=== PATIENT | male | born 1980 | race Caucasian/White ===

== ENCOUNTER 2023-11-04 20:35 | Emergency (ER) | payer OTHER, SELFPAY ==
[2023-11-04 20:45] VITALS: BP 123/76; PULSE 110; RESP 12; TEMP 39.4; O2SAT 97; BMI 24.4
[2023-11-04 20:56] LABS: Adenovirus NOT DETECTED (NOT DETECTE); Bordetella parapertussis NOT DETECTED (NOT DETECTE); Coronavirus 229E NOT DETECTED (NOT DETECTE); Coronavirus HKU1 NOT DETECTED (NOT DETECTE); Coronavirus NL63 NOT DETECTED (NOT DETECTE); Coronavirus OC43 NOT DETECTED (NOT DETECTE); Human Metapneumovirus NOT DETECTED (NOT DETECTE); Human Rhinovirus/Enterovirus NOT DETECTED (NOT DETECTE); Influenza A NOT DETECTED (NOT DETECTE); Mycoplasma pneumoniae NOT DETECTED (NOT DETECTE); Parainfluenza Virus 1 NOT DETECTED (NOT DETECTE); Parainfluenza Virus 2 NOT DETECTED (NOT DETECTE); Parainfluenza Virus 3 NOT DETECTED (NOT DETECTE); Parainfluenza Virus 4 NOT DETECTED (NOT DETECTE); Respiratory Syncytial Virus NOT DETECTED (NOT DETECTE); SARS-CoV-2 NOT DETECTED (NOT DETECTE)
[2023-11-04 21:10] VITALS: TEMP 39.4
[2023-11-04] MEDS: IBUPROFEN 400 MG TABLET 800 MG PO (21:10)
[2023-11-04 21:13] LABS: Internal Control Within Normal Limits; Strep A Antigen Screen Negative
--- NOTE | 2023-11-04 21:14 | XR_ITS ---
The [address] [address] Patient Name: RUTH ANSARI MRN: [id number] date: 1980 Sex: M Assigned Patient Location: ER Current Patient Location: ER Accession/Order Number: [id number] Exam Date: 11/04/2023 21:25 Report Date: 11/04/2023 21:49 At the request of: NEGRITO ARREDONDO Procedure: XR chest 1V EXAMINATION: XR chest 1V HISTORY: Sore throat, fever and cough COMPARISON: Portable chest 12/12/2021 TECHNIQUE: Portable chest FINDINGS: The lung parenchyma is free of consolidation or infiltrate. No pneumothorax or pleural effusion. The cardiac, mediastinal and hilar contours are normal. The visualized osseous structures exhibit no gross abnormality. XR/XR chest 1V IMPRESSION: No acute cardiopulmonary abnormality. Electronically authenticated by: JOELLE WILD Date: 11/04/2023 21:49
--- NOTE | 2023-11-04 21:14 | ED_ITS ---
HPI - Fever General Chief Complaint: Fever Stated Complaint: FEVER COUGH Time Seen by Provider: 11/04/23 21:08 Source: patient Mode of arrival: walk-in Limitations: no limitations History of Present Illness HPI Narrative: history of fentanyl abuse. Currently at a recovery center and states several people there are ill. He left today to come her and visit his mother . He now feels ill. Fever, sore throat, body aches and productive cough. Not short of breath. no abdominal pain or nausea vomiting MD elicited complaint: Reports fever and malaise Related Data Allergies Allergy/AdvReac Type Severity Reaction Status Date / Time Penicillins Allergy Unknown Verified 11/04/23 20:43 vancomycin Allergy Redness of Verified 11/04/23 20:43 Skin Review of Systems ROS Status of ROS 10 or more systems reviewed and unremark able except as noted in history and below [facility] Social History Smoking status: Current every day smoker Exam Constitutional Vital Signs, click to edit/add: Last Vital Signs Temp 100.9 F H 11/04/23 22:07 Pulse 101 H 11/04/23 22:07 Resp 18 11/04/23 22:07 BP 106/66 11/04/23 22:07 Pulse Ox 95 11/04/23 22:07 O2 Del Method Room Air 11/04/23 22:07 Common normals: no apparent distress, average body habitus, oriented x3, no limitations, healthy appearing, alert and well nourished [facility] Common normals: normocephalic and head/scalp atraumatic Other: oral pharynx clear Eye Common normals: EOMs intact bilaterally and conjunctivae normal Respiratory Common normals: normal respiratory effort, no retractions and no use of accessory muscles Cardio Common normals: regular rate, regular rhythm, S1 normal heart sound and S2 normal heart sound GI Common normals: Normal to inspection, nondistended, normoactive bowel sounds present, soft to palpation and non-tender Extremity Common normals: normal to inspection and full ROM Neuro Common normals: oriented x3, CN's II-XII intact bilaterally, moves all extremities and no focal motor deficits Psych Appearance: grossly normal Course Vital Signs Vital signs: Vital Signs Temperature 102.9 F H 11/04/23 20:45 Pulse Rate 110 H 11/04/23 20:45 Respiratory Rate 12 11/04/23 20:45 Blood Pressure 123/76 11/04/23 20:45 Pulse Oximetry 97 11/04/23 20:45 Oxygen Delivery Method Room Air 11/04/23 20:45 Temperature 100.9 F H 11/04/23 22:07 Pulse Rate 101 H 11/04/23 22:07 Respiratory Rate 18 11/04/23 22:07 Blood Pressure 106/66 11/04/23 22:07 Pulse Oximetry 95 11/04/23 22:07 Oxygen Delivery Method Room Air 11/04/23 22:07 MDM - Fever MDM Narrative Medical decision making narrative: patient exposed to virus illness at recovery center. Presents with sorethroat, productive cough, body aches and sore throat. Throat exam is normal and chest is clear. cxray normal. swab positive for influenza. Patient clinically stable and discharged home Lab Data Labs: Lab Results 11/04/23 Range/Units 20:50 Adenovirus (PCR) Not detected (NOT DETECTE) C. pneumoniae DNA (PCR) Not detected (NOT DETECTE) Coronavirus Type OC43 Not detected (NOT DETECTE) Coronavirus Type HKU1 Not detected (NOT DETECTE) Coronavirus Type 229E Not detected (NOT DETECTE) Coronavirus Type NL63 Not detected (NOT DETECTE) Human Metapneumovir PCR Not detected (NOT DETECTE) M. pneumoniae (PCR) Not detected (NOT DETECTE) Parainfluenza PCR Not detected (NOT DETECTE) Parainfluenza 2 (PCR) Not detected (NOT DETECTE) Parainfluenza 3 (PCR) Not detected (NOT DETECTE) Parainfluenza 4 (PCR) Not detected (NOT DETECTE) RSV (RT-PCR) Not detected (NOT DETECTE) Entero/Rhino (PCR) Not detected (NOT DETECTE) SARS-CoV-2 (PCR) Not detected (NOT DETECTE) Streptococcus Screen Negative Bordetella pertussis (PCR) Not detected (NOT DETECTE) B parapertussis DNA PCR Not detected (NOT DETECTE) Influenza Type A (PCR) Not detected (NOT DETECTE) Influenza Type B (PCR) Detected A (NOT DETECTE) Discharge Plan Discharge Chief Complaint: Fever Clinical Impression: Influenza Patient Disposition: Home, Self-Care Instructions: Influenza (ED) Stand Alone Forms: Portal Instructions Referrals: Physician,Non-Staff, MD [Primary Care Provider] - 1 week
[2023-11-04 21:51] LABS: Influenza B DETECTED (NOT DETECTE)
[2023-11-04 22:07] VITALS: BP 106/66; PULSE 101; RESP 18; TEMP 38.3; O2SAT 95
== END 2023-11-04 22:50 | disposition home or self-care (01) ==
PROVIDERS: Emergency Provider Internal Medicine
DX: J10.1 Influenza due to other identified influenza virus with other respiratory manifestations (principal); F19.21 Other psychoactive substance dependence, in remission; F17.200 Nicotine dependence, unspecified, uncomplicated; R50.9 Fever, unspecified
CPT/HCPCS: 0202U; 71045; 87070; 87804; 87811; 87880; 99284

== ENCOUNTER 2025-05-06 20:55 | Emergency (ER) | payer OTHER, SELFPAY ==
[2025-05-06] VITALS (14 sets, daily range): BP systolic 112–139; BP diastolic 75–91; PULSE 69–99; TEMP 36.7–37.2; O2SAT 99–100; BMI 23.3
--- NOTE | 2025-05-06 21:02 | ECG_ITS ---
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 Measurements Intervals [place] Rate: 92 P: 74 GA: 164 QRS: 66 QRSD: 94 T: 60 QT: 348 QTc: 398 Interpretive Statements 1100 Sinus rhythm 2420 RSR (QR) in lead V1/V2, consistent with right ventricular conduction delay 9130 borderline ECG Compared to ECG 12/11/2021 14:40:47 Sinus tachycardia no longer present Electronically Signed On 05-08-2025 11:56:39 EDT by CINDA HAN M.D.
--- OUTSIDE RECORDS SUMMARY | 2025-05-06 21:04 | XMS_ITS | CCD ---
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 Name Role Phone Unavailable Primary Care Provider Emily REBOLLEDO, DR EMY Plata Attending Unavailable REYNOLD, DR MIKY Hernández Consulting Unavailable AMAURY, DR EMY Plata Admitting Unavailable REQUEST, DR ESPINOZA LISTED Primary Care Unavaila ricky REBOLLEDO, DR EMY Plata Procedure Practitioner Mary MEDEIROS, DR JOELLE Lawton Consulting Unavailable AMAURY, DR EMY Plata Consulting Unavailable AHSHERRIE, SAMUEL Consulting Unavailable CELESTE, JOSE RAFAEL Consulting Unavailable JOSÉ LUIS, ETHAN Consulting Unavailable Unavailable Primary Care Provider UnavailMALLIKA Hadley Attending Unavailable DEAALYHSA, NATO Nguyen Attending Unavailable HUSAM SMITH Attending Unavailable JESSICA BARROW Attending Unavailable FABRICIO STORM Referring Unavailable FABRICIO STORM Referring Unavailable EDWARD PALMER Attending Unavailable OZZY, JOSE RAFAEL Referring Unavailable OZZY, JOSE RAFAEL Attending Unavailable ELI DUGAN Attending Unavailable Unavailable Primary Care Provider UnavailFABRICIO Armstrong Attending STU Guevara Attending Unavailable Allergies Allergy Classification Reported Allergen(s) Allergy Type Date of Onset Reaction(s) Facility Penicillins (antibiotic) (1 source) Penicillins Drug Allergy 6 Anaphylaxis [facility] (17 sources) Penicillins; Translations: [PENICILLINS] Propensity to adverse reactions to drug 6 Anaphylaxis [facility]- [place], [place] (1 source) Penicillin Drug Allergy 2 [facility] (12 sources) Vancomycin; Translations: [VANCOMYCIN] Drug Allergy 2 Other (See Comments) [employer] Work Phone (unformatted): [phone] (1 source) Penicillins Propensity to adverse reactions to drug 6 Anaphylaxis [facility] Phone: Medications Current Medications Medication Drug Class(es) Dates Sig (Normalized) Sig (Original) acetaminophen 500 mg oral tablet (7 sources) Start: 09-28-2022 take 1 tablet by mouth every four hours as needed for pain acetaminophen (TYLENOL) 500 MG tablet Take 1 tablet by mouth every 4 hours as needed for Pain or Fever 20 tablet 0 09/28/2022 Active Start: 06-16-2022 acetaminophen (TYLENOL) tablet 650 mg Start: 05-06-2022 acetaminophen (TYLENOL) tablet 650 mg Start: 01-20-2022 acetaminophen (TYLENOL) tablet 650 mg Start: 01-20-2022 End: 01-20-2022 acetaminophen (TYLENOL) tabl et 650 mg Start: 01-20-2022 End: 01-20-2022 acetaminophen (TYLENOL) tabl et 650 mg Start: 12-13-2021 acetaminophen (TYLENOL) tablet 650 mg albuterol 0.83 mg/ml inhalation solution (6 sources) beta2-Adrenergic Agonist Start: 06-19-2022 albut jonathan (PROVENTIL) nebulizer solution 2.5 mg Start: 01-28-2022 albuterol sulf ate HFA 108 (90 Base) MCG/ACT inhaler 2 puff Start: 12-14-2021 albuterol (PRO VENTIL) nebulizer solution 2.5 mg Start: 03-16-2016 take 2 puff(s) by in halation every six hours as needed for wheezing albuterol sulfate HFA (PROVENTIL HFA) 108 (90 BASE) MCG/ACT inhaler Inhale 2 puffs into the lungs every 6 hours as needed for Wheezing or Shortness of Breath (Rinse mouth with water after every use) 1 Inhaler 0 03/16/2016 Active Start: 03-16-2016 End: 12-20-2021 take 2 puff(s) by inhalation every six hours as needed for wheezing albuterol sulfate HFA (PROVENTIL HFA) 108 (90 BASE) MCG/ACT inhaler Inhale 2 puffs into the lungs every 6 hours as needed for Wheezing or Shortness of Breath (Rinse mouth with water after every use) 1 Inhaler 0 03/16/2016 12/20/2021 Discontinued (Stop Taking at Discharge) aluminum hydroxide 40 mg/ml / magnesium hydroxide 40 mg/ml / simethicone 4 mg/ml oral suspension (1 source) Start: 01-29-2022 aluminum & magnesium hydroxide-simethicone (MAALOX) 200-200-20 MG/5ML suspension 30 mL benzocaine 200 mg/ml medicated pad (1 source) Standardized Chemical Allergen Start: 10-18-2023 take 5 doses by mouth three times daily as needed for pain benzocaine (LOLLICAINE) 20 % SWAB dental swab Take by mouth 3 times daily as needed for Pain 5 each 0 10/18/2023 Active benzonatate 100 mg oral capsule (2 sources) Non-narcotic Antitussive Start: 09-28-2022 take 1-2 capsules by mouth three times daily as needed for cough benzonatate (TESSALON) 100 MG capsule Take 1-2 capsules by mouth 3 times daily as needed for Cough 30 capsule 0 01/30/2024 Active bisacodyl 5 mg delayed release oral tablet (1 source) Stimulant Laxative Start: 12-13-2021 bisacodyl (DULCOLAX) EC tablet 5 mg 1.5 ml buprenorphine 200 mg/ml prefilled syringe (1 source) Partial Opioid Agonist buprenorphine er (SUBLOCADE) 300 MG/1.5ML SOSY injection Inject 1.5 mLs into the skin every 30 days. Max Daily Amount: 300 mg 0 Active buprenorphine 8 mg / naloxone 2 mg sublingual film (1 source) Partial Opioid Agonist, Opioid Antagonist Start: 06-28-2022 buprenorphine-naloxone (SUBOXONE) 8-2 MG FILM SL film caspofungin (CANCIDAS) 150 mg in sodium chloride 0.9 % 250 mL IVPB (1 source) Start: 01-25-2022 caspofungin (CANCIDAS) 150 mg in sodium chloride 0.9 % 250 mL IVPB dalbavancin 500 mg injection (5 sources) Lipoglycopeptide Antibacterial Start: 06-19-2022 dalbavancin (DALVANCE) 500 MG SOLR injection Infuse 1,000 mg intravenously every 7 days No iv to be left in arm pls - 2 each 0 06/19/2022 Active Start: 12-20-2021 End: 12-28-2021 dalbavancin (DALVANCE) 500 M G SOLR injection Infuse 1,500 mg intravenously every 7 days for 2 doses 2 each 0 12/20/2021 12/28/2021 Active fluconazole 100 mg oral tablet (12 sources) Azole Antifungal Start: 06-19-2022 End: 07-31-2022 take 4 tablets by mouth every week in the morning fluconazole (DIFLUCAN) 100 MG tablet Take 4 tablets by mouth in the morning. Pls make sure you get the weekly blood for Liver function tests while on this medication. 168 tablet 0 06/19/2022 07/31/2022 Active Start: 06-18-2022 fluconazole (D IFLUCAN) tablet 400 mg Start: 06-15-2022 End: 06-18-2022 fluconazole (DIFLUCAN) 400 m g IVPB Start: 01-30-2022 End: 03-10-2022 take 4 tablets by mouth once daily fluconazole (DIFLUCAN) 100 MG tablet Take 4 tablets by mouth daily Till 03/10/22 Get lFT 2 x per week You ll need repeat echo before the cessation of this medication 156 tablet 0 01/30/2022 03/10/2022 Active Start: 01-23-2022 End: 01-25-2022 fluconazole (DIFLUCAN) 400 m g IVPB Start: 01-23-2022 End: 01-23-2022 fluconazole (DIFLUCAN) 800 m g IVPB End: 06-19-2022 take 2 tablets by mouth in the morning fluconazole (DIFLUCAN) 200 MG tablet Take 400 mg by mouth in the morning. 0 06/19/2022 Discontinued (Stop Taking at Discharge) fluticasone propionate 0.05 mg/actuat metered dose nasal spray (6 sources) Corticosteroid Start: 01-30-2022 End: 05-08-2022 take 1 spray(s) nasal route once daily fluticasone (FLONASE) 50 MCG/ACT nasal spray 1 spray by Each Nostril route daily 16 g 3 01/30/2022 05/08/2022 Discontinued (Stop Taking at Discharge) Start: 01-30-2022 fluticasone (F LONASE) 50 MCG/ACT nasal spray 1 spray glucagon (rdna) 1 mg injection (1 source) Antihypoglycemic Agent Start: 01-21-2022 glucago n (rDNA) injection 1 mg 150 ml glucose 50 mg/ml injection (3 sources) Start: 01-21-2022 glucose (GLUTO SE) 40 % oral gel 15 g Start: 01-21-2022 dextrose 50 % IV solution Start: 01-21-2022 dextrose 5 % s olution 12 hr guaiFENesin 600 mg extended release oral tablet (2 sources) Start: 01-30-2022 End: 02-13-2022 take 1 tablet by mouth twice daily guaiFENesin (MUCINEX) 600 MG extended release tablet Take 1 tablet by mouth 2 times daily for 14 days 28 tablet 0 01/30/2022 02/13/2022 Active hydrOXYzine hydrochloride 25 mg oral tablet (4 sources) Antihistamine Start: 01-20-2022 End: 01-20-2022 take 25 mg by mouth three times daily as needed 25 mg, Oral, 3 TIMES DAILY PRN, Itching, Starting on 01/20/22 at 2236 ibuprofen 800 mg oral tablet (2 sources) Nonsteroidal Anti-inflammatory Drug Start: 01-30-2024 take 1 tablet by mouth every eight hours as needed for pain ibuprofen (ADVIL;MOTRIN) 800 MG tablet Take 1 tablet by mouth every 8 hours as needed for Pain or Fever 15 tablet 0 01/30/2024 Active Start: 10-18-2023 take 1 tablet by flaca th three times daily as needed for pain ibuprofen (ADVIL;MOTRIN) 600 MG tablet Take 1 tablet by mouth 3 times daily as needed for Pain 40 tablet 0 10/18/2023 Active 1 ml ketorolac tromethamine 15 mg/ml cartridge (2 sources) Nonsteroidal Anti-inflammatory Drug, Cyclooxygenase Inhibitor Start: 01-27-2022 End: 02-01-2022 ketorolac (TORADOL) injection 30 mg Start: 12-13-2021 End: 12-18-2021 ketorolac (TORADOL) injectio n 30 mg levoFLOXacin 500 mg oral tablet (4 sources) Quinolone Antimicrobial Start: 01-30-2022 End: 03-10-2022 take 1 tablet by mouth once daily levoFLOXacin (LEVAQUIN) 500 MG tablet Take 1 tablet by mouth daily 39 tablet 0 01/30/2022 03/10/2022 Active LORazepam 1 mg oral tablet (4 sources) Benzodiazepine Start: 05-06-2022 LORazepam (ATIVAN) tablet 1 mg Start: 01-21-2022 End: 01-21-2022 LORazepam (ATIVAN) injection 0.5 mg Start: 12-20-2021 LORazepam (ATI VAN) tablet 0.5 mg Start: 12-16-2021 End: 12-16-2021 LORazepam (ATIVAN) injection 1 mg magnesium hydroxide 80 mg/ml oral suspension (1 source) Start: 01-28-2022 magnesium hydr oxide (MILK OF MAGNESIA) 400 MG/5ML suspension 30 mL melatonin 3 mg oral tablet (2 sources) Start: 01-21-2022 melatonin tabl et 3 mg Start: 12-14-2021 End: 12-18-2021 melatonin tablet 5 mg Nutritional Supplements (BOOST/FIBER PO) (13 sources) Nutritional Supp lements (BOOST/FIBER PO) Take by mouth 0 Active ondansetron (ZOFRAN-ODT) disintegrating tablet 4 mg (3 sources) Start: 05-06-2022 ondansetron (Z OFRAN-ODT) disintegrating tablet 4 mg Start: 01-20-2022 ondansetron (Z OFRAN-ODT) disintegrating tablet 4 mg Start: 12-13-2021 ondansetron (Z OFRAN-ODT) disintegrating tablet 4 mg Potassium Chloride (3 sources) Start: 05-06-2022 potassium chlo ride (KLOR-CON M) extended release tablet 40 mEq Start: 01-20-2022 potassium chlo ride (KLOR-CON M) extended release tablet 40 mEq Start: 12-13-2021 potassium chlo ride (KLOR-CON M) extended release tablet 40 mEq 1 ml promethazine hydrochloride 25 mg/ml injection (1 source) Phenothiazine Start: 05-07-2022 promethazine (PHENERGAN) injection 12.5 mg tigecycline (TYGACIL) 100 mg in sodium chloride 0.9 % 100 mL IVPB (1 source) Start: 05-06-2022 tigecycline (T YGACIL) 100 mg in sodium chloride 0.9 % 100 mL IVPB traZODone hydrochloride 50 mg oral tablet (4 sources) Serotonin Reuptake Inhibitor Start: 01-21-2022 End: 01-21-2022 traZODone (DESYREL) tablet 50 mg End: 05-29-2021 take 1 tablet by mouth once daily traZODone (DESYREL) 50 MG tablet Take 50 mg by mouth nightly 0 05/29/2021 Discontinued (LIST CLEANUP) vancomycin (VANCOCIN) 1250 m g in dextrose 5 % 250 mL IVPB (2 sources) Start: 12-21-2021 vancomycin (VA NCOCIN) 1250 mg in dextrose 5 % 250 mL IVPB Start: 12-18-2021 End: 12-20-2021 vancomycin (VANCOCIN) 1250 m g in dextrose 5 % 250 mL IVPB vancomycin (VANCOCIN) 1250 m g in sodium chloride 0.9% 250 mL IVPB (3 sources) Start: 06-18-2022 vancomycin (VA NCOCIN) 1250 mg in sodium chloride 0.9% 250 mL IVPB Start: 06-15-2022 End: 06-15-2022 vancomycin (VANCOCIN) 1250 m g in sodium chloride 0.9% 250 mL IVPB Start: 01-21-2022 End: 01-22-2022 vancomycin (VANCOCIN) 1250 m g in sodium chloride 0.9% 250 mL IVPB vancomycin (VANCOCIN) intermittent dosing (placeholder) (2 sources) Start: 06-18-2022 vancomycin (VA NCOCIN) intermittent dosing (placeholder) Start: 12-14-2021 vancomycin (VA NCOCIN) intermittent dosing (placeholder) zolpidem tartrate 5 mg oral tablet (1 source) gamma-Aminobutyric Acid-ergic Agonist Start: 12-18-2021 zolpidem (AMBIEN) tablet 5 mg Completed/Discontinued Medications Medication Drug Class(es) Dates Sig (Normalized) Sig (Original) ALPRAZolam 0.25 mg oral tablet (1 source) Benzodiazepine Start: 12-16-2021 End: 12-20-2021 ALPRAZolam (XANAX) tablet 0.25 mg amphotericin B liposome (AMBISOME) 366 mg in dextrose 5 % 158.5 mL IVPB (1 source) Start: 01-24-2022 End: 01-27-2022 amphotericin B liposome (AMBISOME) 366 mg in dextrose 5 % 158.5 mL IVPB aspirin 81 mg chewable tablet (1 source) Platelet Aggregation Inhibitor, Nonsteroidal Anti-inflammatory Drug Start: 12-16-2020 End: 12-16-2020 aspirin chewable tablet 324 mg Start: 12-16-2020 End: 12-16-2020 aspirin chewable tablet 324 mg azithromycin 250 mg oral tablet (1 source) Macrolide Antimicrobial Start: 12-16-2020 End: 12-16-2020 azithromycin (ZITHROMAX) tablet 500 mg aztreonam (AZACTAM) 1000 mg IVPB minibag (1 source) Start: 12-14-2021 End: 12-15-2021 aztreonam (AZACTAM) 1000 mg IVPB minibag cefepime (MAXIPIME) 2,000 mg in sterile water 20 mL IV syringe (1 source) Start: 06-15-2022 End: 06-17-2022 cefepime (MAXIPIME) 2,000 mg in sterile water 20 mL IV syringe dalbavancin (DALVANCE) 1,000 mg in dextrose 5 % 500 mL IVPB (2 sources) Start: 07-09-2022 End: 07-09-2022 dalbavancin (DALVANCE) 1,000 mg in dextrose 5 % 500 mL IVPB Start: 07-02-2022 End: 07-02-2022 dalbavancin (DALVANCE) 1,000 mg in dextrose 5 % 500 mL IVPB dalbavancin (DALVANCE) 1,500 mg in dextrose 5 % 500 mL IVPB (1 source) Start: 01-06-2022 End: 01-06-2022 dalbavancin (DALVANCE) 1,500 mg in dextrose 5 % 500 mL IVPB DAPTOmycin (CUBICIN) 450 mg in sodium chloride 0.9 % 50 mL IVPB (2 sources) Start: 01-24-2022 End: 01-26-2022 DAPTOmycin (CUBICIN) 450 mg in sodium chloride 0.9 % 50 mL IVPB Start: 01-21-2022 End: 01-21-2022 DAPTOmycin (CUBICIN) 450 mg in sodium chloride 0.9 % 50 mL IVPB dexamethasone phosphate 10 mg/ml injectable solution (1 source) Corticosteroid Start: 12-16-2020 End: 12-16-2020 dexamethasone (DECADRON) injection 10 mg 1 ml diphenhydrAMINE hydrochloride 50 mg/ml cartridge (6 sources) Histamine-1 Receptor Antagonist Start: 06-18-2022 End: 06-18-2022 diphenhydrAMINE (BENADRYL) injection 25 mg Start: 06-18-2022 End: 06-18-2022 diphenhydrAMINE (BENADRYL) i njection 12.5 mg Start: 06-18-2022 diphenhydrAMIN E (BENADRYL) tablet 12.5 mg Start: 01-25-2022 diphenhydrAMIN E (BENADRYL) injection 25 mg Start: 01-20-2022 End: 01-20-2022 diphenhydrAMINE (BENADRYL) i njection 50 mg doxycycline hyclate 100 mg oral tablet (5 sources) Tetracycline-class Drug Start: 01-27-2022 End: 01-28-2022 doxycycline hyclate (VIBRA-TABS) tablet 100 mg Start: 01-23-2022 End: 01-24-2022 doxycycline hyclate (VIBRA-T ABS) tablet 100 mg End: 01-30-2022 take 1 tablet by mouth twice daily doxycycline hyclate (PERIOSTAT) 20 MG tablet Take 20 mg by mouth 2 times daily 0 01/30/2022 Discontinued (Stop Taking at Discharge) 0.4 ml enoxaparin sodium 100 mg/ml prefilled syringe (4 sources) Low Molecular Weight Heparin Start: 06-16-2022 inject 40 mg by subcutaneous injection once daily 40 mg, SubCUTAneous, DAILY, First dose on 06/16/22 at 0900, Until Discontinued Indication of Use: Prophylaxis-DVT/PE Start: 05-06-2022 inject 40 mg by subc utaneous injection once daily 40 mg, SubCUTAneous, DAILY, First dose on 05/06/22 at 0900, Until Discontinued Indication of Use: Prophylaxis-DVT/PE Start: 01-21-2022 inject 40 mg by subc utaneous injection once daily 40 mg, SubCUTAneous, DAILY, First dose on 01/21/22 at 0900 Start: 12-13-2021 enoxaparin (LO VENOX) injection 40 mg 2 ml famotidine 10 mg/ml injection (2 sources) Histamine-2 Receptor Antagonist Start: 01-20-2022 End: 01-20-2022 famotidine (PEPCID) injection 20 mg 2 ml fentaNYL 0.05 mg/ml injection (1 source) Opioid Agonist Start: 01-26-2022 End: 01-26-2022 fentaNYL (SUBLIMAZE) injection 50 mcg gadoteridol (PROHANCE) injection 15 mL (1 source) Start: 01-23-2022 End: 01-23-2022 gadoteridol (PROHANCE) injection 15 mL gadoteridol (PROHANCE) injection 16 mL (1 source) Start: 06-16-2022 End: 06-16-2022 gadoteridol (PROHANCE) injection 16 mL hydroCHLOROthiazide 25 mg / triamterene 37.5 mg oral tablet (5 sources) Potassium-sparing Diuretic, Thiazide Diuretic Start: 01-10-2022 End: 02-09-2022 take 1 tablet by mouth once daily 1 tablet, Oral, DAILY, First dose on 01/21/22 at 0900 iopamidol (ISOVUE-370) 76 % injection 75 mL (6 sources) Start: 06-15-2022 End: 06-15-2022 iopamidol (ISOVUE-370) 76 % injection 75 mL Start: 05-05-2022 End: 05-05-2022 iopamidol (ISOVUE-370) 76 % injection 75 mL Start: 01-20-2022 End: 01-20-2022 iopamidol (ISOVUE-370) 76 % injection 75 mL Start: 05-29-2021 End: 05-29-2021 iopamidol (ISOVUE-370) 76 % injection 75 mL Start: 12-16-2020 End: 12-16-2020 iopamidol (ISOVUE-370) 76 % injection 75 mL linezolid 600 mg oral tablet (4 sources) Oxazolidinone Antibacterial Start: 01-21-2022 End: 01-22-2022 linezolid (ZYVOX) tablet 600 mg Start: 01-20-2022 linezolid (ZYV OX) IVPB 600 mg 50 ml magnesium sulfate 40 m g/ml injection (4 sources) Start: 06-16-2022 End: 06-16-2022 magnesium sulfate 2000 mg in 50 mL IVPB premix Start: 05-06-2022 take 1000 mg intravenously every hour as needed 1,000 mg, IntraVENous, at 100 mL/hr, Adm inister over 1 Hours, PRN, Other, Per IV Magnesium Replacement Protocol, Starting on 05/06/22 at 0533 Mg Lab Replacement Action 1.4- 1.6 1 gram IVPB x 2 doses &nb sp; (2 gram Total) 1.0-1.3 1 gram IVPB x 4 doses &nb sp; (4 gram Total) <1.0 CALL PHYSICIAN and &n bsp; 1 gram IVPB x 4 doses (4 gram Total) Infuse at 1 gram/hr Repeat Mag level next AM Protocol not for use in Patients with CrCl<30ml/min Start: 01-20-2022 take 1000 mg intravenously every hour as needed 1,000 mg, IntraVENous, at 100 mL/hr, Adm inister over 1 Hours, PRN, Other, Per IV Magnesium Replacement Protocol, Starting on 01/20/22 at 2236 Mg Lab Replacement Action 1.4- 1.6 1 gram IVPB x 2 doses &nb sp; (2 gram Total) 1.0-1.3 1 gram IVPB x 4 doses &nb sp; (4 gram Total) <1.0 CALL PHYSICIAN and &n bsp; 1 gram IVPB x 4 doses (4 gram Total) Infuse at 1 gram/hr Repeat Mag level next AM Protocol not for use in Patients with CrCl<30ml/min Start: 12-13-2021 magnesium sulfate 1000 mg in dextrose 5% 100 mL IVPB methylPREDNISolone 125 mg injection (2 sources) Corticosteroid Start: 01-20-2022 End: 01-20-2022 methylPREDNISolone sodium (SOLU-MEDROL) injection 125 mg 5 ml metoprolol tartrate 1 mg/ml injection (4 sources) beta-Adrenergic Yasmani Start: 01-28-2022 End: 01-28-2022 metoprolol (LOPRESSOR) injection 5 mg Start: 01-25-2022 End: 01-28-2022 metoprolol succinate (TOPROL XL) extended release tablet 25 mg Start: 12-18-2021 End: 12-18-2021 metoprolol tartrate (LOPRESS OR) tablet 12.5 mg 1 ml morphine sulfate 4 mg/ml cartridge (2 sources) Opioid Agonist Start: 12-16-2021 End: 12-16-2021 morphine 4 MG/ML injection Start: 12-16-2021 morphine (PF) injection 2 mg 2 ml naloxone hydrochloride 1 mg/ml prefilled syringe (5 sources) Opioid Antagonist Start: 01-10-2022 End: 01-10-2022 naloxone (NARCAN) injection 2 mg Start: 01-10-2022 End: 01-10-2022 naloxone (NARCAN) 2 MG/2ML i njection Start: 12-19-2021 End: 12-19-2021 naloxone (NARCAN) injection 0.4 mg Start: 12-19-2021 End: 12-19-2021 naloxone (NARCAN) 0.4 MG/ML injection Start: 12-16-2020 naloxone (NALO XONE TO-GO) 4 mg/0.1 mL nasal spray 2 ml ondansetron 2 mg/ml injection (2 sources) Serotonin-3 Receptor Antagonist Start: 01-10-2022 End: 01-10-2022 ondansetron (ZOFRAN) injection 4 mg Start: 01-10-2022 End: 01-10-2022 ondansetron (ZOFRAN) 4 MG/2M L injection piperacillin-tazobactam (ZOSYN) 4,500 mg in dextrose 5 % 100 mL IVPB (mini-bag) (1 source) Start: 06-15-2022 End: 06-15-2022 piperacillin-tazobactam (ZOSYN) 4,500 mg in dextrose 5 % 100 mL IVPB (mini-bag) polyethylene glycol 3350 26672 mg powder for oral solution (2 sources) Osmotic Laxative Start: 05-06-2022 17 g, Oral, DAILY PRN, Starting on 05/06/22 at 0533, Until Discontinued, Constipation First line therapy for constipation Start: 01-20-2022 17 g, Oral, DA ELLIS PRN, Constipation, Starting on 01/20/22 at 2236 First line therapy for constipation 50 ml sodium chloride 9 mg/m l injection (20 sources) Start: 06-16-2022 IntraVENous, a t 5-250 mL/hr, PRN, if patient receiving piggyback infusions and maintenance fluids are not ordered OR KVO fluids to protect IV site / prevent frequent line interruptions/ long duration, Starting on 06/16/22 at 0239 For piggyback infusion, administer at same rate as piggyback for a total of 25 mL. Enter 25 mL into dose field and piggyback rate into rate field of order. If piggyback is infusing at a rate less than 100 mL/hr, enter 25 mL into dose field and 100 mL/hr into rate field of order. For KVO fluids, enter rate of 20 mL/hr or less into rate field of order. Start: 06-16-2022 take 5-40 mL intrave nously once as needed 5-40 mL, IntraVENous, PRN, Starting on 06/16/22 at 0239, Until Discontinued, Line Care, After every IV line use For Line Patency: Peripheral IV = 5 mL; Midline or Central Line = 10 mL/lumen. If following IV push medication, administer flush at same rate as the IV push. Flush volume is determined by type of infusion therapy being given. For non-viscous solutions use: Peripheral IV = 5 mL Midline or Central Line = 10 mL/lumen For viscous solutions (i.e. blood components, parenteral nutrition, contrast media, or after obtaining blood sample) use: Peripheral IV = 10 mL Midline or Central Line = 20 mL/lumen Start: 06-15-2022 End: 06-16-2022 0.9 % sodium chloride bolus Start: 06-15-2022 End: 06-17-2022 take 1 mL intravenously every hour IntraVENous, at 100 mL/hr, CONTINUOUS, Starting on 06/16/22 at 0300 Maintenance IV fluid order, if a bolus IV fluid order is present, begin this order after the bolus is complete. Start: 06-15-2022 End: 06-17-2022 sodium chloride flush 0.9 % injection 5-40 mL Start: 05-06-2022 take 1 dose intraven ously twice daily 5-40 mL, IntraVENous, EVERY 12 HOURS SCHEDULED (2 times per day), First dose on 05/06/22 at 0900, Until Discontinued For Line Patency: Peripheral IV = 5 mL; Midline or Central Line = 10 mL/lumen. If following IV push medication, administer flush at same rate as the IV push. Flush volume is determined by type of infusion therapy being given. For non-viscous solutions use: Peripheral IV = 5 mL Midline or Central Line = 10 mL/lumen For viscous solutions (i.e. blood components, parenteral nutrition, contrast media, or after obtaining blood sample) use: Peripheral IV = 10 mL Midline or Central Line = 20 mL/lumen Start: 05-06-2022 IntraVENous, a t 5-250 mL/hr, PRN, if patient receiving piggyback infusions and maintenance fluids are not ordered OR KVO fluids to protect IV site / prevent frequent line interruptions/ long duration, Starting on 05/06/22 at 0533 For piggyback infusion, administer at same rate as piggyback for a total of 25 mL. Enter 25 mL into dose field and piggyback rate into rate field of order. If piggyback is infusing at a rate less than 100 mL/hr, enter 25 mL into dose field and 100 mL/hr into rate field of order. For KVO fluids, enter rate of 20 mL/hr or less into rate field of order. Start: 05-06-2022 take 10 mL intraveno usly once as needed 10 mL, IntraVENous, PRN, Starting on 05/06/22 at 0533, Until Discontinued, Line Care, After every IV line use Start: 01-28-2022 End: 01-28-2022 0.9 % sodium chloride bolus Start: 01-26-2022 take 1 dose intraven ously twice daily 5-40 mL, IntraVENous, EVERY 12 HOURS SCHEDULED (2 times per day), First dose on Sat01/26/22 at 2100 For Line Patency: Peripheral IV = 5 mL; Midline or Central Line = 10 mL/lumen. If following IV push medication, administer flush at same rate as the IV push. Flush volume is determined by type of infusion therapy being given. For non-viscous solutions use: Peripheral IV = 5 mL Midline or Central Line = 10 mL/lumen For viscous solutions (i.e. blood components, parenteral nutrition, contrast media, or after obtaining blood sample) use: Peripheral IV = 10 mL Midline or Central Line = 20 mL/lumen Recovery(Cath) Start: 01-25-2022 End: 01-30-2022 0.9 % sodium chloride infusi on Start: 01-25-2022 End: 01-30-2022 sodium chloride flush 0.9 % injection 5-40 mL Start: 01-24-2022 End: 01-24-2022 0.9 % sodium chloride bolus Start: 01-21-2022 End: 01-25-2022 take 1 dose intravenously twice daily 5-40 mL, IntraVENous, EVERY 12 HOURS SCHEDULED (2 times per day), First dose on Sat01/21/22 at 0900 For Line Patency: Peripheral IV = 5 mL; Midline or Central Line = 10 mL/lumen. If following IV push medication, administer flush at same rate as the IV push. Flush volume is determined by type of infusion therapy being given. For non-viscous solutions use: Peripheral IV = 5 mL Midline or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 [facility] ([facility]) [address] [place] [address] Neutrophils/100 WBC (Bld) 63.1 % Normal 40.0-72.0 [facility] Comment on above: Performed By: #### L [id number] #### [facility] ([facility]) [address] [place] [address] NRBC (PER 100 WBCS) BY AUTOMATED COUNT 0.0 % Normal 0 [facility] Comment on above: Performed By: #### L [id number] #### [facility] ([facility]) [address] [place] [address] PLATELETS (10*3/UL) IN BLOOD AUTOMATED COUNT 159 10*3/uL Normal 150-400 [facility] Comment on above: Performed By: #### L [id number] #### [facility] ([facility]) [address] [place] [address] RBC (Bld) [#/Vol] 4.73 10*6/uL Normal 4.20-5.70 [facility] Comment on above: Performed By: #### L [id number] #### [facility] ([facility]) [address] [place] [address] WBC (Bld) [#/Vol] 5.33 10*3/uL Normal 4.00-10.60 [facility] Comment on above: Performed By: #### L [id number] #### [facility] ([facility]) [address] [place] [address] COMPREHENSIVE METABOLIC PANE Tarun 04-16-2023 Albumin [Mass/Vol] 4.3 g/dL Normal 3.5-5.7 [facility] Comment on above: Performed By: #### L [id number] #### [facility] ([facility]) [address] [place] [address] ALP [Catalytic activity/Vol] 98 U/L Normal 34-104 [facility] Comment on above: Performed By: #### L [id number] #### [facility] ([facility]) [address] [place] [address] ALT [Catalytic activity/Vol] 71 U/L High 7-52 [facility] Comment on above: Performed By: #### L [id number] #### [facility] ([facility]) [address] [place] [address] Anion gap [Moles/Vol] 9 mmol/L Normal 7-20 [facility] Comment on above: Performed By: #### L [id number] #### [facility] ([facility]) [address] [place] [address] AST [Catalytic activity/Vol] 43 U/L High 13-39 [facility] Comment on above: Performed By: #### L [id number] #### [facility] ([facility]) [address] [place] [address] Bilirubin [Mass/Vol] 0.8 mg/dL Normal 0.3-1.0 [facility] Comment on above: Performed By: #### L [id number] #### [facility] ([facility]) [address] [place] [address] Calcium [Mass/Vol] 9.7 mg/dL Normal 8.6-10.3 [facility] Comment on above: Performed By: #### L [id number] #### [facility] ([facility]) [address] [place] [address] Chloride [Moles/Vol] 107 mmol/L Normal 98-107 [facility] Comment on above: Performed By: #### L [id number] #### [facility] ([facility]) [address] [place] [address] CO2 [Moles/Vol] 27 mmol/L Normal 21-[address] [facility] Comment on above: Performed By: #### L [id number] #### [facility] ([facility]) [address] [place] [address] Creatinine [Mass/Vol] 1.05 mg/dL Normal 0.70-1.30 [facility] Comment on above: Performed By: #### L [id number] #### [facility] ([facility]) [address] [place] [address] GLOMERULAR FILTRATION RATE ML/MIN/1.73 SQ M.PREDICTED 91.5 mL/min/1.73m*2 Normal >60.0 [facility] Comment on above: Result Comment: The [facility]???s estimated glomerular filtration rate (eGFR) will no longer include consideration of race in its calculation. The National Kidney Foundation???s eGFR Task Force developed new recommendations for the estimation of the glomerular filtration rate in the [place] They recommend immediate implementation of the new equation refit without the race variable in all laboratories because the calculation does not include race. In addition to not including race in the calculation and reporting, it included diversity in its development, and has acceptable performance characteristics and potential consequences that do not disproportionately affect any one group of individuals. Performed By: #### L [id number] #### [facility] ([facility]) [address] [place] [address] Glucose [Mass/Vol] 91 mg/dL Normal 70-100 [facility] Comment on above: Performed By: #### L [id number] #### [facility] ([facility]) [address] [place] [address] Potassium [Moles/Vol] 3.9 mmol/L Normal 3.5-5.1 [facility] Comment on above: Performed By: #### L [id number] #### [facility] ([facility]) [address] [place] [address] Protein [Mass/Vol] 7.2 g/dL Normal 6.0-8.3 [facility] Comment on above: Performed By: #### L [id number] #### [facility] ([facility]) [address] [place] [address] Sodium [Moles/Vol] 139 mmol/L Normal 136-145 [facility] Comment on above: Performed By: #### L [id number] #### [facility] ([facility]) [address] [place] [address] Urea nitrogen [Mass/Vol] 15 mg/dL Normal 7-20 [facility] Comment on above: Performed By: #### L [id number] #### [facility] ([facility]) [address] [place] [address] Performed By: #### L [id number] #### [facility] ([facility]) [address] [place] [address] UREA NITROGEN/CREATININE (MASS RATIO) IN SER/PLAS 14.3 Normal [facility] Comment on above: Performed By: #### L [id number] #### [facility] ([facility]) [address] [place] [address] FERRITINon 04-16-2023 FERRITIN (NG/ML) IN SER/PLAS 51.0 ng/mL Normal 24.0-336.0 [facility] Comment on above: Performed By: #### L [id number] #### [facility] ([facility]) [address] [place] [address] HCV QUANTITATIVE TMAon 04-16 HCV QUANTITATIVE LOG 6.59 Log10 IU/mL Normal [facility] Comment on above: Order Comment: The A ptima HCV Quant Dx assay is a real-time business machines teacher-mediated amplification (TMA) test which has a dynamic range of 10-100,000,000 IU/mL (1.0-8.0 log IU/mL). The Aptima HCV Quant Dx assay is used for both detection and quantitation of hepatitis C virus (HCV) RNA in human serum and plasma from HCV-infected individuals.The results from the Aptima HCV Quant Dx assay must be interpreted within the context of all relevant clinical and laboratory findings. The Aptima HCV Quant Dx assay is not approved for use as a screening test for the presence of HCV RNA in blood or blood products. Performed By: #### L [id number] #### [facility] ([facility]) [address] [place] [address] HCV TMA INTERP Detected Abnormal Not Detected [facility] Comment on above: Order Comment: The A ptima HCV Quant Dx assay is a real-time business machines teacher-mediated amplification (TMA) test which has a dynamic range of 10-100,000,000 IU/mL (1.0-8.0 log IU/mL). The Aptima HCV Quant Dx assay is used for both detection and quantitation of hepatitis C virus (HCV) RNA in human serum and plasma from HCV-infected individuals.The results from the Aptima HCV Quant Dx assay must be interpreted within the context of all relevant clinical and laboratory findings. The Aptima HCV Quant Dx assay is not approved for use as a screening test for the presence of HCV RNA in blood or blood products. Performed By: #### L [id number] #### [facility] ([facility]) [address] [place] [address] HCV TMA QUANTITATIVE [id number] IU/mL Normal [facility] Comment on above: Order Comment: The A ptima HCV Quant Dx assay is a real-time business machines teacher-mediated amplification (TMA) test which has a dynamic range of 10-100,000,000 IU/mL (1.0-8.0 log IU/mL). The Aptima HCV Quant Dx assay is used for both detection and quantitation of hepatitis C virus (HCV) RNA in human serum and plasma from HCV-infected individuals.The results from the Aptima HCV Quant Dx assay must be interpreted within the context of all relevant clinical and laboratory findings. The Aptima HCV Quant Dx assay is not approved for use as a screening test for the presence of HCV RNA in blood or blood products. Performed By: #### L [id number] #### [facility] ([employer] [facility]) [address] [place] [address] HEPATITIS B E ANTIBODYon HEPATITIS B VIRUS E AB PRESENCE IN SERUM BY IMMUNOASSAY Negative Normal Negative [facility] Comment on above: Result Comment: [place] [address] [email or web address], Hank Evans MD, PHD, Lab. Director Performed By: #### L [id number] #### [facility] ([facility]) [address] [place] [address] HEPATITIS B E ANTIGENon HEPATITIS BE ANTIGEN Positive Abnormal Negative [facility] Comment on above: Result Comment: The HBeAg is reactive, which is consistent with hepatitis B infection and a HIGH infectious potential. Serum positive for rheumatoid factor may cause falsely positive HBeAg results. All specimens submitted for HBeAg testing should be positive for HBsAg. Performed by [facility] [address] [email or web address], Hank Evans MD, PHD, Lab. Director Performed By: #### L [id number] #### [facility] ([employer] [facility]) [address] [place] [address] HEPATITIS B QUANTITATIVE PCR on 04-16-2023 HBV DNA, QUANT PCR (IU/ML) 538,246,646 IU/mL Normal [facility] Comment on above: Performed By: #### L [id number] #### [facility] ([facility]) [address] [place] [address] HBV DNA, QUANT PCR (LOG IU/ML) 8.73 log IU/mL Normal [facility] Comment on above: Result Comment: Perf ormed by [facility], [address] [place], [place] [id number] [email or web address], Hank Evans MD, PHD, Lab. Director Performed By: #### L [id number] #### [facility] ([facility]) [address] [place] [address] HBV DNA, QUANT PCR INTERP Detected Abnormal Not Detected [facility] Comment on above: Result Comment: INTE RPRETIVE INFORMATION: HBV by Quantitative NAAT Normal range for this assay is Not Detected . The quantitative range of this assay is 1.00-9.00 log IU/mL (10-1,000,000,000 IU/mL). An interpretation of Not Detected does not rule out the presence of inhibitors in the patient specimen or HBV DNA concentration below the level of detection of the test. Care should be taken when interpreting any single viral load determination. This assay should not be used for blood donor screening, associated re-entry protocols, or for screening Human Cell, Tissues and Cellular Tissue-Based Products (HCT/P). Performed By: #### L [id number] #### [facility] ([facility]) [address] [place] [address] HEPATITIS B SURFACE ANTIGEN CONFIRMon 04-16-2023 HEPATITIS B SURFACE ANTIGEN INTERPRETATION Confirmed Abnormal Not Confirmed [facility] Comment on above: Performed By: #### L [id number] #### [facility] ([facility]) [address] [place] [address] HEPATITIS PANEL, ACUTEon HEPATITIS A VIRUS IGM AB PRESENCE IN SER/PLAS Non-Reactive Normal Nonreactive [facility] Comment on above: Performed By: #### L [id number] #### [facility] ([facility]) [address] [place] [address] HEPATITIS B VIRUS CORE AB (PRESENCE) IN SER/PLAS BY IMM Reactive Abnormal Nonreactive [facility] Comment on above: Result Comment: RAN IN DUP, ALL THREE REACTIVE Performed By: #### L [id number] #### [facility] ([facility]) [address] [place] [address] HEPATITIS B VIRUS SURFACE AG PRESENCE IN SERUM Reactive Abnormal Nonreactive [facility] Comment on above: Result Comment: RAN IN DUP, ALL THREE REACTIVE Performed By: #### L [id number] #### [facility] ([facility]) [address] [place] [address] HEPATITIS C VIRUS AB PRESENCE IN SERUM Reactive Abnormal Nonreactive [facility] Comment on above: Performed By: #### L [id number] #### [facility] ([facility]) [address] [place] [address] HIV COMBO 4Gon 04-16-2023 HIV COMBO 4G Negative Normal Negative [facility] Comment on above: Performed By: #### L [id number] #### [facility] ([employer] [facility]) [address] [place] [address] IRON AND TIBCon 04-16-2023 IRON (UG/DL) IN SER/PLAS 88 ug/dL Normal 50-212 [facility] Comment on above: Performed By: #### L [id number] #### [facility] ([facility]) [address] [place] [address] IRON BINDING CAPACITY (UG/DL) IN SER/PLAS 368 ug/dL Normal 250-450 [facility] Comment on above: Performed By: #### L [id number] #### [facility] ([facility]) [address] [place] [address] IRON BINDING CAPACITY.UNSATURATED (UG/DL) IN SER/PLAS 280.0 ug/dL Normal 155.0-355.0 [facility] Comment on above: Performed By: #### L [id number] #### [facility] ([facility]) [address] [place] [address] IRON SATURATION (%) IN SER/PLAS 24 % Normal 20-50 [facility] Comment on above: Performed By: #### L [id number] #### [facility] ([facility]) [address] [place] [address] LIVER FIBROSIS CHRONIC VIRAL HEPATITISon 04-16-2023 [id number], FIBROMETER 149 mg/dL Normal 131-293 [facility] Comment on above: Performed By: #### L [id number] #### [facility] ([facility]) [address] [place] [address] ALT [Catalytic activity/Vol] 96 U/L High 5-50 [facility] Comment on above: Performed By: #### L [id number] #### [facility] ([facility]) [address] [place] [address] Amylase [Catalytic activity/Vol] 44 U/L Normal 7-51 [facility] Comment on above: Performed By: #### L [id number] #### [facility] ([facility]) [address] [facility] [place] [address] AST [Catalytic activity/Vol] 55 U/L High 9-50 [facility] Comment on above: Performed By: #### L [id number] #### [facility] ([facility]) [address] [place] [address] CIRRHOMETER PATIENT SCORE 0.05 Normal [facility] Comment on above: Performed By: #### L [id number] #### [facility] ([facility]) [address] [place] [address] EER FIBROMETER REPORT See Note Normal [facility] Comment on above: Result Comment: Auth orized individuals can access the [facility] Enhanced Report using the following link: [email or web address] Performed By: #### L [id number] #### [facility] ([facility]) [address] [facility] [place] [address] FIBROMETER INTERPRETATION See Report Normal [facility] Comment on above: Result Comment: [17] [13] INTERPRETIVE INFORMATION: Fibrometer Interpretation Calculations for the final report are based on accurate data for age, gender, and platelet count. If any of this information needs to be corrected, please contact [facility] Client Services to request a recalculation. Client Services may be contacted at . The [employer] FibroMeter profile serves as a surrogate marker of liver fibrosis, cirrhosis, and necro-inflammatory activity. A proprietary algorithm calculates and compares results from 7 blood markers along with age and gender to provide a patient score (from 0 to 1) and a correlated fibrosis stage (Metavir F0-F4) and activity grade (Metavir A0-A3). The fibrosis/cirrhosis score is further evaluated by a rules-based system to detect anomalous profile results which may modify the fibrosis/cirrhosis score as needed. Results should be interpreted in conjunction with the patient's clinical history; particularly when the rules-based system has modified the scores. Legend: -Metavir is a histological scoring system for determining the extent of liver fibrosis and inflammation. STAGE OF FIBROSIS (F scale) F0 = no fibrosis F1 = portal fibrosis without septa F2 = portal fibrosis with few septa F3 = numerous septa without cirrhosis F4 = cirrhosis GRADE OF NECRO-INFLAMMATORY ACTIVITY (A scale) A0 = no activity A1 = mild activity A2 = moderate activity A3 = severe activity -Platelet count result provided by client. -The Prothrombin Index test expresses the Prothrombin Time (PT) as a percentage of normal, and is used to standardize PT results across different instrument/reagent combinations. This test was developed and its performance characteristics determined by [facility]. It has not been cleared or approved by the [place] Food and Drug Administration. This test was performed in a CLIA certified laboratory and is intended for clinical purposes. Performed By: [facility] [address] [place] [id number] Talent Sourcer: Hank Evans MD, PhD Performed By: #### L [id number] #### [facility] ([facility]) [address] [place] [address] FIBROMETER PATIENT SCORE 0.46 Normal [facility] Comment on above: Performed By: #### L [id number] #### [facility] ([facility]) [address] [place] [address] FIBROMETER PLATELET COUNT 165 k/uL Normal [facility] Comment on above: Performed By: #### L [id number] #### [facility] ([facility]) [address] [place] [address] FIBROMETER PROTHROMBIN INDEX 86 % Low 90-120 [facility] Comment on above: Performed By: #### L [id number] #### [facility] ([facility]) [address] [place] [address] FIBROSIS METAVIR CLASSIFICATION F2[F1-F2] Normal [facility] Comment on above: Result Comment: INTE RPRETIVE INFORMATION: Fibrosis Metavir Classification FibroMeter (fibrosis score) comments F0/F1 Equal probability between F0 and F1 F1[F1-F2] Predominance of F1, but F2 is possible F2[F1-F2] Predominance of F2, but F1 is possible F2[F1-F3] Predominance of F2, but F1 and F3 are possible F2/F3 Equal probability between F2 and F3 F3[F2-F4] Predominance of F3, but F2 and F4 are possible F3[F3-F4] Predominance of F3, but F4 is possible F4[F3-F4] Predominance of F4, but F3 is possible Performed By: #### L [id number] #### [facility] ([facility]) [address] [place] [address] INFLAMETER METAVIR CLASSIFICATION A1/A2 Normal [facility] Comment on above: Result Comment: INTE RPRETIVE INFORMATION: InflaMeter Metavir Classification InflaMeter (activity score) comments A0/A1 Equal probability between A0 and A1 A1/A2 Equal probability between A1 and A2 A2/A3 Equal probability between A2 and A3 Performed By: #### L [id number] #### [facility] ([facility]) [address] [place] [address] INFLAMETER PATIENT SCORE 0.51 Normal [facility] Comment on above: Performed By: #### L [id number] #### [facility] ([facility]) [address] [place] [address] [place] 04-16-2023 Lab [id number] Tip Ansari 1980 M Date Provider Department Center 04/16/[id number]-[facility] OPD LAB RESOURCE [facility] OPD [facility] C No family history on file Normal [facility] MITOCHONDRIAL ANTIBODIES, M2 on 04-16-2023 MITOCHONDRIAL M2 ANTIBODY 2.7 Units Normal 0.0-24.9 [facility] Comment on above: Result Comment: REFE RENCE INTERVAL: Mitochondrial (M2) Antibody, IgG 20.0 Units or less ......... Negative 20.1 - 24.9 Units........... Equivocal 25.0 Units or greater....... Positive Anti-mitochondrial antibodies (AMA) are thought to be present in 90-95% of patients with primary biliary cholangitis (PBC). However, the frequency of detected antibodies may be cohort or assay dependent, as lower sensitivities have been reported. Not all PBC patients are positive for AMA; some patients may be positive for SP100 and/or GP210 antibodies. A negative result does not rule out PBC. Performed By: [facility] [address] [place] [address] Talent Sourcer: Hank Evans MD, PhD Performed By: #### L [id number] #### [facility] ([facility]) [address] [place] [address] Office Visiton 04-16-2023 Follow-up visit [id number] Tip Ansari 1980 M Date Provider Department [place] 04/16/2023 JOSE RAFAEL EUBANKS [facility] No family history on file Level of Service:36087 PA OFFICE/OUTPATIENT ESTABLISHED MOD MDM 30-39 MIN Reason for Visit and Comments: New Patient [632] Hepatitis C [102] Hepatitis B [94] Normal [facility] PROTIME-INRon 04-16-2023 INR IN PPP BY COAGULATION ASSAY 1.07 Normal 0.90-1.10 [facility] Comment on above: Result Comment: ACC[facility] P RECOMMENDED INR FOR WARFARIN THERAPY CONDITION INR PROPHYLAXIS OF VENOUS THROMBOSIS 2-3 (HIGH-RISK SURGERY) TREATMENT OF VENOUS THROMBOSIS 2-3 TREATMENT OF PULMONARY EMBOLISM 2-3 PREVENTION OF SYSTEMIC EMBOLISM: 2-3 ACUTE MYOCARDIAL INFARCTION TISSUE HEART VALVES VALVULAR HEART DISEASE ATRIAL FIBRILLATION RECURRENT SYSTEMIC EMBOLISM MECHANICAL HEART VALVE 2.5-3.5 FROM: ORAL ANTICOAGULANTS. MECHANISM OF ACTION, CLINICAL EFFECTIVENESS, AND OPTIMAL THERAPEUTIC RANGE. CHEST 1995;108:[id number]. Performed By: #### L [id number] #### [facility] ([facility] [facility] [address] [place] [address] PROTHROMBIN TIME (PT) IN PPP BY COAGULATION ASSAY 14.0 Seconds Normal 12.3-14.8 [facility] Comment on above: Performed By: #### L [id number] #### [facility] ([facility] [place]) [address] [place] [address] TISSUE TRANSGLUTAMINASE, IGA on 04-16-2023 TISSUE TRANSGLUTAMINASE, IGA <2 Normal 0-3 [facility] Comment on above: Result Comment: INTE RPRETIVE INFORMATION: Tissue Transglutaminase (tTG) Antibody, IgA 3 U/mL or less: Negative 4-10 U/mL: Weak Positive 11 U/mL or greater: Positive Presence of the tissue transglutaminase (tTG) IgA antibody is associated with glutensensitive enteropathies such as celiac disease and dermatitis herpetiformis. tTG IgA antibody concentrations greater than 40 U/mL usually correlate with results of duodenal biopsies consistent with a diagnosis of celiac disease. For antibody concentrations greater or equal to 4 U/mL but less than or equal to 40 U/mL, additional testing for endomysial (MAIME) IgA concentrations may improve the positive predictive value for disease. Performed By: [facility] [address] [place] [address] Talent Sourcer: Hank Evans MD, PhD Performed By: #### L [id number] #### [employer] ([facility] [place]) [address] [place] [address] EDPROVon 12-26-2022 EDPROV [facility] [address] [facility] [id number] EMERGENCY DEPARTMENT ENCOUNTER CHIEF COMPLAINT Chief Complaint Patient presents with Dental Pain HISTORY OF PRESENT ILLNESS 42 y/o male presents to the ED for evaluation of right upper toothache x months. Pt reports the pain has become more severe over the last few days. Pt admits to foul tasting drainage from right upper teeth. Pt reports teeth have been broken for quite some time. Pt denies fevers, chills, n/v/d, CP, SOB, abd pain. Pt reports he tried IBU earlier this AM. 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 REVIEW OF SYSTEMS Review of Systems Constitutional: Negative for chills and fever. HENT: Positive for dental problem and facial swelling. Negative for congestion, sore throat and trouble swallowing. Eyes: Negative for redness. Respiratory: Negative for cough and shortness of breath. Cardiovascular: Negative for chest pain. Gastrointestinal: Negative for abdominal pain, diarrhea and vomiting. Genitourinary: Negative for dysuria and frequency. Musculoskeletal: Negative for back pain and neck pain. Skin: Negative for rash. Neurological: Negative for syncope and headaches. Psychiatric/Behaviora l: Negative for confusion and hallucinations. All other systems reviewed and are negative. PAST MEDICAL HISTORY has no past medical history on file. SURGICAL HISTORY has no past surgical history on file. CURRENT MEDICATIONS Previous Medications No medications on file ALLERGIES is allergic to penicillins. FAMILY HISTORY has no family status information on file. family history is not on file. SOCIAL HISTORY PHYSICIAL EXAM INITIAL VITALS: height is 1.854 m (6' 1 ) and weight is 86.2 kg (190 lb). His oral temperature is 36.4 ???C (97.5 ???F). His blood pressure is 120/77 and his pulse is 77. His respiration is 14 and oxygen saturation is 99%. Physical Exam Vitals reviewed. Constitutional: Appearance: Normal appearance. He is not ill-appearing or toxic-appearing. Comments: Uncomfortable, but in NAD. HENT: Head: Normocephalic and atraumatic. Jaw: There is normal jaw occlusion. Tenderness (right upper jaw/cheek) and swelling (right upper jaw/cheek) present. No trismus. Nose: Nose normal. Mouth/Throat: Mouth: Mucous membranes are moist. Dentition: Abnormal dentition (most all teeth are severely decayed, cracked, or have extensive caries). Dental tenderness (right upper teeth), dental caries and dental abscesses (right upper molar) present. Pharynx: Oropharynx is clear. Comments: No drooling or trismus. Eyes: Conjunctiva/sclera: Conjunctivae normal. Cardiovascular: Rate and Rhythm: Normal rate and regular rhythm. Pulmonary: Effort: Pulmonary effort is normal. No respiratory distress. Musculoskeletal: General: Normal range of motion. Cervical back: Normal range of motion and neck supple. No tenderness. Skin: General: Skin is warm and dry. Neurological: General: No focal deficit present. Mental Status: He is alert and oriented to person, place, and time. Gait: Gait is intact. Gait normal. Psychiatric: Mood and Affect: Mood normal. Behavior: Behavior normal. DIAGNOSTIC RESULTS EKG: Not indicated RADIOLOGY: Not indicated LABS: Not indicated EMERGENCY DEPARMENT COURSE Vitals: Vitals: 12/25/222123 BP: 120/77 Pulse: 77 Resp: 14 Temp: 36.4 ???C (97.5 ???F) TempSrc: Oral SpO2: 99% Weight: 86.2 kg (190 lb) Height: 1.854 m (6' 1 ) BP: 120/77, Temp: 36.4 ???C (97.5 ???F), Temp Source: Oral, Heart Rate: 77, Resp: 14 Diagnoses as of 12/25/220 Dental abscess Toothache CONSULTS: None PROCEDURES: None DIFFERENTIAL DIAGNOSIS / DISPOSITION / PLAN / Medical Decision Making this patient is a 42-year-old male who presented to the emergency department for evaluation of tooth ache. Examination revealed significant dental caries, many decayed and cracked teeth, along with dental abscess with gingival irritation. For this reason, he was initiated on clindamycin due to a penicillin allergy. He was also initiated on Peridex mouthwash, viscus lidocaine, and was prescribed Tylenol and Motrin to take on an as-needed basis. He was instructed to follow-up with a dentist on an outpatient basis as he was nontoxic appearing and without any systemic symptoms in the department. Problems Addressed: Dental abscess: acute illness or injury Toothache: acute illness or injury Amount and/or Complexity of Data Reviewed Independent Historian: Details: History obtained from patient Labs: Details: not indicated Radiology: Details: not indicated ECG/medicine tests: Details: not indicated Risk OTC drugs. Prescription drug management. FINAL IMPRESSION 1. Dental abscess 2. Toothache PATIENT REFERRED TO: [facility] [phone] Schedule an appointment a (more content not included)... Normal [facility] EDNURSon 12-25-2022 EDNURS Patient reports having dental pain for the past couple of months. Patient reports that he is to have all of his teeth extracted but due to insurance issues he has not been able to have that done. 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 Normal [facility] Basic Metabolic Panel w/ Ref rebecca to MGon 06-21-2022 Anion gap [Moles/Vol] 10 mmol/L 9 - 17 mmol/L [employer] Calcium [Mass/Vol] 9.2 mg/dL 8.6 - 10. 4 mg/dL [facility] Chloride [Moles/Vol] 104 mmol/L 98 - 10 7 mmol/L [facility] CO2 [Moles/Vol] 24 mmol/L 20 - 31 mmol/L [facility] Creatinine [Mass/Vol] 0.68 mg/dL Low 0.7 - 1.2 mg/dL [employer] GFR >60 60 - PI NF mL/min [employer] GFR Non- >60 60 - PINF mL/min [employer] [facility] GFR/1.73 sq M.predicted MDRD (S/P/Bld) [Vol rate/Area] [facility] Comment on above: Average GFR for 40-4 9 years old: 99 mL/min/1.73sq m Chronic Kidney Disease: <60 mL/min/1.73sq m Kidney failure: <15 mL/min/1.73sq m eGFR calculated using average adult body mass. Additional eGFR calculator available at: http://www.[employer].Primo Round/multiple_crcl_2011.htm Glucose [Mass/Vol] 85 mg/dL 70 - 99 mg/dL [facility] [employer] Interpretation and review of laboratory results Abnormal [facility] Potassium [Moles/Vol] 3.9 mmol/L 3.7 - 5.3 mmol/L [facility] Sodium [Moles/Vol] 138 mmol/L 135 - 144 mmol/L [facility] Urea nitrogen (BldV) [Mass/Vol] 13 mg/dL 6 - 20 mg/dL [facility] CBCon 06-21-2022 Hematocrit (Bld) [Volume fraction] 35.7 % Low 40.7 - 50.3 % [facility] Hemoglobin (Bld) [Mass/Vol] 12.3 g/dL Low 13 - 17 g/dL [facility] Interpretation and review of laboratory results Abnormal [facility] MCH (RBC) [Entitic mass] 28.7 pg 25. 2 - 33.5 pg [facility] MCHC (RBC) [Mass/Vol] 34.5 g/dL 28.4 - 34.8 g/dL [facility] MCV (RBC) [Entitic vol] 83.4 fL 82.6 - 102.9 fL [facility] NRBC Automated 0.0 0.0 per 100 WBC [facility] Platelet distribution width (Bld) [Ratio] 17.9 % High 11.8 - 14.4 % [facility] Platelet mean volume (Bld) [Entitic vol] 9.1 fL 8.1 - 13.5 fL [facility] Platelets (Bld) [#/Vol] 174 10*3/uL [facility] RBC (Bld) [#/Vol] 4.28 10*6/uL 4.21 - 5.7 7 m/uL [facility] WBC (Bld) [#/Vol] 8.6 10*3/uL [facility] Hepatic Function Panelon Albumin [Mass/Vol] 3.2 g/dL Low 3.5 - 5.2 g/dL [facility] Albumin/Globulin [Mass ratio] 0.7 {ratio} Low 1 - 2.5 [facility] ALP (Bld) [Catalytic activity/Vol] 83 U/L 40 - 129 U/L [facility] ALT [Catalytic activity/Vol] 28 U/L 5 - 41 U/L [facility] AST [Catalytic activity/Vol] 20 U/L NINF - 40 U/L [facility] Bilirubin [Mass/Vol] 0.45 mg/dL 0.3 - 1 .2 mg/dL [facility] Bilirubin, Indirect 0.35 mg/dL 0 - 1 mg/dL [facility] Bilirubin.indirect [Mass/Vol] 0.10 mg/dL NINF - 0.31 mg/dL [facility] Free PSA/Total PSA [Mass fraction] 7.5 g/dL 6.4 - 8.3 g/dL [facility] Interpretation and review of laboratory results Abnormal [facility] Basic Metabolic Panel w/ Ref rebecca to MGon 06-20-2022 Anion gap [Moles/Vol] 8 mmol/L Low 9 - 17 mmol/L [facility] Calcium [Mass/Vol] 9.1 mg/dL 8.6 - 10. 4 mg/dL [facility] Chloride [Moles/Vol] 106 mmol/L 98 - 10 7 mmol/L [facility] CO2 [Moles/Vol] 27 mmol/L 20 - 31 mmol/L [facility] Creatinine [Mass/Vol] 0.75 mg/dL 0.7 - 1.2 mg/dL [facility] GFR >60 60 - PI NF mL/min [facility] GFR Non- >60 60 - PINF mL/min [facility] GFR/1.73 sq M.predicted MDRD (S/P/Bld) [Vol rate/Area] [facility] Comment on above: Average GFR for 40-4 9 years old: 99 mL/min/1.73sq m Chronic Kidney Disease: <60 mL/min/1.73sq m Kidney failure: <15 mL/min/1.73sq m eGFR calculated using average adult body mass. Additional eGFR calculator available at: http://www.[employer].Primo Round/multiple_crcl_2011.htm Glucose [Mass/Vol] 99 mg/dL 70 - 99 mg/dL [facility] Interpretation and review of laboratory results Abnormal [facility] Potassium [Moles/Vol] 4.1 mmol/L 3.7 - 5.3 mmol/L [facility] Sodium [Moles/Vol] 141 mmol/L 135 - 144 mmol/L [facility] Urea nitrogen (BldV) [Mass/Vol] 13 mg/dL 6 - 20 mg/dL [facility] CBCon 06-20-2022 Hematocrit (Bld) [Volume fraction] 35.2 % Low 40.7 - 50.3 % [facility] Hemoglobin (Bld) [Mass/Vol] 11.8 g/dL Low 13 - 17 g/dL [facility] Interpretation and review of laboratory results Abnormal [facility] MCH (RBC) [Entitic mass] 28.0 pg 25. 2 - 33.5 pg [facility] MCHC (RBC) [Mass/Vol] 33.5 g/dL 28.4 - 34.8 g/dL [facility] MCV (RBC) [Entitic vol] 83.4 fL 82.6 - 102.9 fL [facility] NRBC Automated 0.0 0.0 per 100 WBC [facility] Platelet distribution width (Bld) [Ratio] 18.0 % High 11.8 - 14.4 % [facility] Platelet mean volume (Bld) [Entitic vol] 8.9 fL 8.1 - 13.5 fL [facility] Platelets (Bld) [#/Vol] 187 10*3/uL [facility] RBC (Bld) [#/Vol] 4.22 10*6/uL 4.21 - 5.7 7 m/uL [facility] WBC (Bld) [#/Vol] 8.9 10*3/uL [facility] Culture, Blood 1 2 Bacteria identified Cx Nom (Unsp spec) NO GROWTH 5 DAYS [facility] Special Requests RT FOREARM 3ML [facility] Specimen Description .BLOOD [facility] Culture, Blood 2 2 Bacteria identified Cx Nom (Unsp spec) NO GROWTH 5 DAYS [facility] Special Requests L AC 10ML [facility] Specimen Description .BLOOD [facility] XR ABDOMEN (KUB) (SINGLE AP VIEW)on 06-20-2022 Moderate stool burde n throughout the colon. Nonobstructive bowel gas pattern. [facility] EXAMINATION: ONE SUPINE XRAY VIEW(S) OF THE ABDOMEN 06/20/2022 8:37 am COMPARISON: None. HISTORY: ORDERING SYSTEM PROVIDED HISTORY: abd paindistension TECHNOLOGIST PROVIDED HISTORY: abd paindistension FINDINGS: Moderate stool burden throughout the colon. Nonobstructive bowel gas pattern. No renal calculi identified. No acute osseous abnormality appreciated. [facility] Mckayla Baltazar MD - 06/20/2022 EXAMINATION: ONE SUPINE XRAY VIEW(S) OF THE ABDOMEN 06/20/2022 8:37 am COMPARISON: None. HISTORY: ORDERING SYSTEM PROVIDED HISTORY: abd paindistension TECHNOLOGIST PROVIDED HISTORY: abd paindistension FINDINGS: Moderate stool burden throughout the colon. Nonobstructive bowel gas pattern. No renal calculi identified. No acute osseous abnormality appreciated. IMPRESSION: Moderate stool burden throughout the colon. Nonobstructive bowel gas pattern. [facility] Work Phone: Radiology Study observation (narrative) [facility] [employer] [facility] [email or web address] Work Phone: XR ABDOMEN (KUB) (SINGLE AP VIEW)Ordered By: Mckayla Baltazar on 06-20-2022 [facility] Work Phone: No Panel Informationon 06-19 [facility] [employer] Renal Function Panelon 06-19 Albumin [Mass/Vol] 3.3 g/dL Low 3.5 - 5.2 g/dL [facility] [email or web address] Anion gap [Moles/Vol] 11 mmol/L 9 - 17 mmol/L [facility] [email or web address] Calcium [Mass/Vol] 9.0 mg/dL 8.6 - 10. 4 mg/dL [facility] [employer] Chloride [Moles/Vol] 105 mmol/L 98 - 10 7 mmol/L [facility] [employer] CO2 [Moles/Vol] 25 mmol/L 20 - 31 mmol/L [facility] [employer] Creatinine [Mass/Vol] 0.7 mg/dL 0.7 - 1.2 mg/dL [facility] GFR >60 60 - PI NF mL/min [facility] GFR Non- >60 60 - PINF mL/min [facility] GFR/1.73 sq M.predicted MDRD (S/P/Bld) [Vol rate/Area] [facility] Comment on above: Average GFR for 40-4 9 years old: 99 mL/min/1.73sq m Chronic Kidney Disease: <60 mL/min/1.73sq m Kidney failure: <15 mL/min/1.73sq m eGFR calculated using average adult body mass. Additional eGFR calculator available at: http://www.Cherry/multiple_crcl_2012.htm Glucose [Mass/Vol] 142 mg/dL High 70 - 99 mg/dL [facility] Interpretation and review of laboratory results Abnormal [facility] Phosphate [Mass/Vol] 3.3 mg/dL 2.5 - 4 .5 mg/dL [facility] Potassium [Moles/Vol] 3.6 mmol/L Low 3.7 - 5.3 mmol/L [facility] Sodium [Moles/Vol] 141 mmol/L 135 - 144 mmol/L [facility] Urea nitrogen (BldV) [Mass/Vol] 11 mg/dL 6 - 20 mg/dL [facility] Vancomycin Level, Randomon 0 06-19-2022 Vancomycin Rm 18.4 ug/mL [facility] Comment on above: Higher trough serum vancomycin concentrations of 15-20 ug/mL are recommended for complicated infections such as bacteremia, endocarditis, osteomyelitis, meningitis, and hospital acquired pneumonia. Cult,Bloodon 06-18-2022 Cult,Blood Specimen Description .BLOOD Culture NO GROWTH 5 DAYS Report Status FINAL 06/18/2022 Normal [facility] Comment on above: Performed By: #### B C #### [facility] [address] [place] [address] Substance Addiction Coordinator: Joelle Parker MD Basic Metabolic Panel w/ Ref rebecca to MGon 06-17-2022 Anion gap [Moles/Vol] 10 mmol/L 9 - 17 mmol/L [facility] Calcium [Mass/Vol] 8.8 mg/dL 8.6 - 10. 4 mg/dL [facility] Chloride [Moles/Vol] 106 mmol/L 98 - 10 7 mmol/L [facility] CO2 [Moles/Vol] 24 mmol/L 20 - 31 mmol/L [facility] Creatinine [Mass/Vol] 0.73 mg/dL 0.7 - 1.2 mg/dL [facility] GFR >60 60 - PI NF mL/min [facility] GFR Non- >60 60 - PINF mL/min [facility] GFR/1.73 sq M.predicted MDRD (S/P/Bld) [Vol rate/Area] [facility] Comment on above: Average GFR for 40-4 9 years old: 99 mL/min/1.73sq m Chronic Kidney Disease: <60 mL/min/1.73sq m Kidney failure: <15 mL/min/1.73sq m eGFR calculated using average adult body mass. Additional eGFR calculator available at: http://www.Cherry/multiple_crcl_2012.htm Glucose [Mass/Vol] 147 mg/dL High 70 - 99 mg/dL [facility] Interpretation and review of laboratory results Abnormal [facility] Potassium [Moles/Vol] 3.7 mmol/L 3.7 - 5.3 mmol/L [facility] Sodium [Moles/Vol] 140 mmol/L 135 - 144 mmol/L [facility] Urea nitrogen (BldV) [Mass/Vol] 9 mg/dL 6 - 20 mg/dL [facility] Respiratory Cultureon 2021 Bacteria identified Cx Nom (Unsp spec) NORMAL RESPIRATORY CHRISTOPHER MODERATE GROWTH [facility] Direct Exam >25 NEUTROPHILS/LPF [facility] Direct Exam < 10 EPITHELIAL CELLS/LPF [facility] Direct Exam MIXED BACTERIAL MORPHOTYPES SEEN ON GRAM STAIN. Abnormal [facility] Interpretation and review of laboratory results Abnormal [facility] Specimen Description .ASPIRATED SPUTUM [facility] ANTISTREPTOLYSIN O SCREENon 06-16-[address]22 [address]O [address] [facility] Brain Natriuretic Peptideon 06-16-2022 Natriuretic peptide B (Bld) [Mass/Vol] 287 pg/mL NINF - 300 pg/mL [facility] Comment on above: An age-independent cutoff point of 300 pg/ml has a 98% negative predictive value excluding acute heart failure. C-Reactive Proteinon 022 CRP [Mass/Vol] 16.4 mg/L High 0 - 5 mg/L [facility] Interpretation and review of laboratory results Abnormal [facility] Comprehensive Metabolic Pane l w/ Reflex to MGon 06-16-2022 Albumin [Mass/Vol] 3.1 g/dL Low 3.5 - 5.2 g/dL [facility] Albumin/Globulin [Mass ratio] 0.8 {ratio} Low 1 - 2.5 [facility] ALP (Bld) [Catalytic activity/Vol] 76 U/L 40 - 129 U/L [facility] ALT [Catalytic activity/Vol] 21 U/L 5 - 41 U/L [facility] Anion gap [Moles/Vol] 10 mmol/L 9 - 17 mmol/L [facility] AST [Catalytic activity/Vol] 15 U/L NINF - 40 U/L [facility] Bilirubin [Mass/Vol] 0.35 mg/dL 0.3 - 1 .2 mg/dL [facility] Calcium [Mass/Vol] 8.6 mg/dL 8.6 - 10. 4 mg/dL [facility] Chloride [Moles/Vol] 107 mmol/L 98 - 10 7 mmol/L [facility] CO2 [Moles/Vol] 22 mmol/L 20 - 31 mmol/L [facility] Creatinine [Mass/Vol] 0.72 mg/dL 0.7 - 1.2 mg/dL [facility] Free PSA/Total PSA [Mass fraction] 7.0 g/dL 6.4 - 8.3 g/dL [facility] GFR >60 60 - PI NF mL/min [facility] GFR Non- >60 60 - PINF mL/min [facility] GFR/1.73 sq M.predicted MDRD (S/P/Bld) [Vol rate/Area] [facility] Comment on above: Average GFR for 40-4 9 years old: 99 mL/min/1.73sq m Chronic Kidney Disease: <60 mL/min/1.73sq m Kidney failure: <15 mL/min/1.73sq m eGFR calculated using average adult body mass. Additional eGFR calculator available at: http://www.Cherry/multiple_crcl_2012.htm Glucose [Mass/Vol] 96 mg/dL 70 - 99 mg/dL [facility] Interpretation and review of laboratory results Abnormal [facility] Potassium [Moles/Vol] 3.6 mmol/L Low 3.7 - 5.3 mmol/L [facility] Sodium [Moles/Vol] 139 mmol/L 135 - 144 mmol/L [facility] Urea nitrogen (BldV) [Mass/Vol] 9 mg/dL 6 - 20 mg/dL [facility] DRUG SCREEN MULTI URINEon Amphetamine Screen, Ur Negative NEGATIVE [facility] Comment on above: (Positive cutoff 1000 ng/mL) Barbiturate Screen, Ur Negative NEGATIVE [facility] Comment on above: (Positive cutoff 200 ng/mL) Benzodiazepine Screen, Urine Negative NEGATIVE [facility] Comment on above: (Positive cutoff 200 ng/mL) Cannabinoid Scrn, Ur Negative NEGATIVE [facility] Comment on above: (Positive cutoff 50 ng/mL) Cocaine Metabolite, Urine Negative NEGATIVE [facility] Comment on above: (Positive cutoff 300 ng/mL) Fentanyl, Ur Negative NEGATIVE [facility] Comment on above: (Positive cutoff 5 ng/ml) Methadone Screen, Urine Negative NEGATIVE B ON [employer] Comment on above: (Positive cutoff 300 ng/mL) Opiates, Urine Negative NEGATIVE [facility] Comment on above: (Positive cutoff 300 ng/mL) Oxycodone Screen, Ur Negative NEGATIVE [facility] [employer] Comment on above: (Positive cutoff 100 ng/mL) Phencyclidine, Urine Negative NEGATIVE [employer] Comment on above: (Positive cutoff 25 ng/mL) Test Information Assay provides medical screening only. The absence of expected drug(s) and/or metabolite(s) may indicate diluted or adulterated urine, limitations of testing or timing of collection. [employer] Comment on above: Testing for legal pu rposes should be confirmed by another method. To request confirmation of test result, please call the lab within 7 days of sample submission. [employer] EKG 12 LeadOrdered By: Alec Cheung on 06-16-2022 Atrial Rate 113 BPM [employer] Work Phone: P [place] 65 degrees [employer] Phone: P-R Interval 132 ms [employer] Work Phone: Q-T Interval 332 ms [employer] Phone: QRS Duration 80 ms [employer] Work Phone: QTc Calculation (Bazett) 455 ms [employer] Work Phone: R [place] 73 degrees [employer] Work Phone: T [place] 57 degrees [employer] Work Phone: Ventricular Rate 113 [employer] Work Phone: [employer] Work Phone: EKG 12 Leadon 06-16-2022 Sinus tachycardia Otherwise normal ECG When compared with ECG of 30-JAN-2022 08:47, No significant change was found [facility] STV Alec Shook MD - 06/16/2022 Sinus tachycardia Otherwise normal ECG When compared with ECG of 30-JAN-2022 08:47, No significant change was found [employer] Work Phone: Echocardiogram 3Don 06-16-20 Transthoracic Echocardiography Report (TTE) Patient Name COTY Date of Study 06/16/2022 TIP Plata Date of 1980 Gender Male Age 42 year(s) Race Room Number 430 Height: 73 inch, 185.42 cm Corporate ID [id number] Weight: 172 pounds, 78 kg # Patient Acct [id number] BSA: 2.02 m^2 BMI: 22.69 # kg/m^2 MR # [id number] 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 Procedure Date Date: 06/16/2022 Start: 11:00 AM Study Location: [facility] Indications:Endocardi tis. History / Tech. Comments: Lower Respiratory Pneumonia, Hx of Tricuspid Vegetation Patient Status: Inpatient Height: 73 inches Weight: 172 pounds BSA: 2.02 m^2 BMI: 22.69 kg/m^2 Allergies - Penicillin. - *Unlisted:(vanco). CONCLUSIONS Summary Normal LV size and wall thickness. No obvious wall motion abnormality seen. Normal LV systolic function with LVEF >55%. Normal RV size and function. RV systolic pressure 29 mmHg LA and RA appears normal in size. AV, MV structure appears normal TV vegetation noted , no significant change fro 02/14/22 No significant TR Normal aortic root dimension. No significant pericardial effusion noted. No obvious intra-cardiac mass or shunt noted. IVC normal diameter and inspiratory variation indicating normal RA filling pressure. Signature FINDINGS Left Atrium Left atrium is normal in size. Left Ventricle Left ventricle is normal in size with normal systolic function globally. Calculated ejection fraction by bi-plane Barrios's method is 60 %. Ectopy is noted Right Atrium Right atrium is normal in size. Right Ventricle Normal right ventricular size and function. TAPSE measures 2.4 cm Mitral Valve Mitral valve structure is normal. Mild mitral regurgitation. Aortic Valve Aortic valve is trileaflet and opens normally. No aortic insufficiency. Tricuspid Valve Vegetation measuring 1.98 cm x 0.88 cm noted on the anterior leaflet of the tricuspid valve, also noted on the previous Echo done 02/14/22. Mild tricuspid regurgitation. Estimated right ventricular systolic pressure is 29 mmHg. Pulmonic Valve The pulmonic valve is normal in structure. Pericardial Effusion No significant pericardial effusion is seen. Miscellaneous Normal aortic root dimension. IVC diameter and inspiratory collapse is normal. M-mode / 2D Measurements & Calculations: LVIDd:4.7 cm(3.7 - 5.6 cm) Diastolic Volume:64.7 ml LVIDs:3.29 cm(2.2 - 4.0 cm) Systolic Volume:25.6 ml IVSd:1.2 cm(0.6 - 1.1 cm) Aortic Root:2.9 cm(2.0 - 3.7 cm) LVPWd:1 cm(0.6 - 1.1 cm) LA Dimension: 3.4 cm(1.9 - 4.0 cm) Fractional Shortenin % LA volume/Index: 38.07 ml /19m^2 Calculated LVEF (%): 60.43 % LVOT:2.2 cm RVDd:3 cm Mitral: Aortic Valve Area (P1/2-Time): 3.61 cm^2 Peak Velocity: 1.18 m/s Peak E-Wave: 0.73 m/s Mean Velocity: 0.74 m/s Peak A-Wave: 0.81 m/s Peak Gradient: 5.57 mmHg E/A Ratio: 0.91 Mean Gradient: 3 mmHg Peak Gradient: 2.15 mmHg Mean Gradient: 1 mmHg Deceleration Time: 186 msec Area (continuity): 3.93 cm^2 P1/2t: 61 msec AV VTI: 24 cm Area (continuity): 5.42 cm^2 Mean Velocity: 0.51 m/s Tricuspid: Pulmonic: Estimated RVSP: 29 mmHg Peak Velocity: 0.88 m/s Peak TR Velocity: 2.19 m/s Peak Gradient: 3.11 mmHg Peak TR Gradient: 19.1844 mmHg Estimated RA Pressure: 10 mmHg Estimated PASP: 29.18 mmHg Septal Wall E' velocity:0.09 m/s Lateral Wall E' velocity:0.10 m/s [facility] STV CPA Alec Cheung MD - 06/16/2022 Transthoracic Echocardiography Report (TTE) Patient Name COTY Date of Study 06/16/2022 TIP Plata Date of 1980 Gender Male Age 42 year(s) Race Room Number 430 Height: 73 inch, 185.42 cm Corporate ID [id number] Weight: 172 pounds, 78 kg # Patient Acct [id number] BSA: 2.02 m^2 BMI: 22.69 # kg/m^2 MR # [id number] Toll Line Repairer Tanner Fam Interpreting Physician Alec Cheung Fellow Referring Nurse Practitioner Interpreting Referring Physician Beverly Flores Type of Study TTE procedure:2D Echocardiogram, Doppler, Color Doppler. Procedure Date Date: 06/16/2022 Start: 11:00 AM Study Location: [facility] Indications:Endocardi tis. History / Tech. Comments: Lower Respiratory Pneumonia, Hx of Tricuspid Vegetation Patient Status: Inpatient Height: 73 inches Weight: 172 pounds BSA: 2.02 m^2 BMI: 22.69 kg/m^2 Allergies - Penicillin. - *Unlisted:(anao). CONCLUSIONS Summary Normal LV size and wall thickness. No obvious wall motion abnormality seen. Normal LV systolic function with LVEF >55%. Normal RV size and function. RV systolic pressure 29 mmHg LA and RA appears normal in size. AV, MV structure appears normal TV vegetation noted , no significant change fro 02/14/22 No significant TR Normal aortic root dimension. No significant pericardial effusion noted. No obvious intra-cardiac mass or shunt noted. IVC normal diameter and inspiratory variation indicating normal RA filling pressure. Signature - - - - FINDINGS Left Atrium Left atrium is normal in size. Left Ventricle Left ventricle is normal in size with normal systolic function globally. Calculated ejection fraction by bi-plane Barrios's method is 60 %. Ectopy is noted Right Atrium Right atrium is normal in size. Right Ventricle Normal right ventricular size and function. TAPSE measures 2.4 cm Mitral Valve Mitral valve structure is normal. Mild mitral regurgitation. Aortic Valve Aortic valve is trileaflet and opens normally. No aortic insufficiency. Tricuspid Valve Vegetation measuring 1.98 cm x 0.88 cm noted on the anterior leaflet of the tricuspid valve, also noted on the previous Echo done 02/14/22. Mild tricuspid regurgitation. Estimated right ventricular systolic pressure is 29 mmHg. Pulmonic Valve The pulmonic valve is normal in structure. Pericardial Effusion No significant pericardial effusion is seen. Miscellaneous Normal aortic root dimension. IVC diameter and inspiratory collapse is normal. M-mode / 2D Measurements & Calculations: LVIDd:4.7 cm(3.7 - 5.6 cm) Diastolic Volume:64.7 ml LVIDs:3.29 cm(2.2 - 4.0 cm) Systolic Volume:25.6 ml IVSd:1.2 cm(0.6 - 1.1 cm) Aortic Root:2.9 cm(2.0 - 3.7 cm) LVPWd:1 cm(0.6 - 1.1 cm) LA Dimension: 3.4 cm(1.9 - 4.0 cm) Fractional Shortenin % LA volume/Index: 38.07 ml /19m^2 Calculated LVEF (%): 60.43 % LVOT:2.2 cm RVDd:3 cm Mitral: Aortic Valve Area (P1/2-Time): 3.61 cm^2 Peak Velocity: 1.18 m/s Peak E-Wave: 0.73 m/s Mean Velocity: 0.74 m/s Peak A-Wave: 0.81 m/s Peak Gradient: 5.57 mmHg E/A Ratio: 0.91 Mean Gradient: 3 mmHg Peak Gradient: 2.15 mmHg Mean Gradient: 1 mmHg Deceleration Time: 186 msec Area (continuity): 3.93 cm^2 P1/2t: 61 msec AV VTI: 24 cm Area (continuity): 5.42 cm^2 Mean Velocity: 0.51 m/s Tricuspid: Pulmonic: Estimated RVSP: 29 mmHg Peak Velocity: 0.88 m/s Peak TR Velocity: 2.19 m/s Peak Gradient: 3.11 mmHg Peak TR Gradient: 19.1844 mmHg Estimated RA Pressure: 10 mmHg Estimated PASP: 29.18 mmHg Septal Wall E' velocity:0.09 m/s Lateral Wall E' velocity:0.10 m/s [facility] Work Phone: [facility] [email or web address] Work Phone: HIV Screenon 06-16-2022 HIV Ag/Ab Non-Reactive NONREACTIVE [facility] Comment on above: No laboratory eviden ce of HIV infection. If acute HIV infection is suspected, consider testing for HIV-1 RNA. [facility] [employer] Lactate, Sepsison 06-16-2022 Lactic Acid, Sepsis, Whole Blood 1.6 mmol/L 0.5 - 1.9 mmol/L [facility] MRI CERVICAL SPINE W WO CONT RASTon 06-16-2022 No MRI evidence of discitis-osteomyeliti s or epidural abscess. Degenerative neural foraminal stenosis at C6-C7, on the left hand side. [facility] RIS CONSOLIDATED EXAMINATION: MRI OF THE CERVICAL SPINE WITHOUT AND WITH CONTRAST 06/16/2022 12:49 pm: TECHNIQUE: Multiplanar multisequence MRI of the cervical spine was performed without and with the administration of intravenous contrast. COMPARISON: None. HISTORY: ORDERING SYSTEM PROVIDED HISTORY: look forseeding of the cerv spine TECHNOLOGIST PROVIDED HISTORY: look forseeding of the cerv spine Decision Support Exception - unselect if not a suspected or confirmed emergency medical condition->Emergency Medical Condition (MA) Reason for Exam: look forseeding of the cerv spine FINDINGS: BONES/ALIGNMENT: There is straightening of the normal cervical lordosis. No acute fracture or traumatic subluxation is identified. There is mild degenerative disc disease. Normal expected signal voids are present within the vertebral arteries SPINAL CORD: No abnormal cord signal is seen. SOFT TISSUES: No abnormal enhancement of the cervical spine. No paraspinal mass identified. C2-C3: There is no significant disc protrusion, spinal canal stenosis or neural foraminal narrowing. C3-C4: There is no significant disc protrusion, spinal canal stenosis or neural foraminal narrowing. C4-C5: There is no significant disc protrusion, spinal canal stenosis or neural foraminal narrowing. C5-C6: There is no significant disc protrusion, spinal canal stenosis or neural foraminal narrowing. C6-C7: Disc osteophyte complex and facet hypertrophy resulting in moderate narrowing of the left neural foramen. C7-T1: There is no significant disc protrusion, spinal canal stenosis or neural foraminal narrowing. [facility] RIS Richard Shane MD - 06/16/2022 EXAMINATION: MRI OF THE CERVICAL SPINE WITHOUT AND WITH CONTRAST 06/16/2022 12:49 pm: TECHNIQUE: Multiplanar multisequence MRI of the cervical spine was performed without and with the administration of intravenous contrast. COMPARISON: None. HISTORY: ORDERING SYSTEM PROVIDED HISTORY: look forseeding of the cerv spine TECHNOLOGIST PROVIDED HISTORY: look forseeding of the cerv spine Decision Support Exception - unselect if not a suspected or confirmed emergency medical condition->Emergency Medical Condition (MA) Reason for Exam: look forseeding of the cerv spine FINDINGS: BONES/ALIGNMENT: There is straightening of the normal cervical lordosis. No acute fracture or traumatic subluxation is identified. There is mild degenerative disc disease. Normal expected signal voids are present within the vertebral arteries SPINAL CORD: No abnormal cord signal is seen. SOFT TISSUES: No abnormal enhancement of the cervical spine. No paraspinal mass identified. C2-C3: There is no significant disc protrusion, spinal canal stenosis or neural foraminal narrowing. C3-C4: There is no significant disc protrusion, spinal canal stenosis or neural foraminal narrowing. C4-C5: There is no significant disc protrusion, spinal canal stenosis or neural foraminal narrowing. C5-C6: There is no significant disc protrusion, spinal canal stenosis or neural foraminal narrowing. C6-C7: Disc osteophyte complex and facet hypertrophy resulting in moderate narrowing of the left neural foramen. C7-T1: There is no significant disc protrusion, spinal canal stenosis or neural foraminal narrowing. IMPRESSION: No MRI evidence of discitis-osteomyeliti s or epidural abscess. Degenerative neural foraminal stenosis at C6-C7, on the left hand side. [employer] Phone: [employer] Phone: MRI LUMBAR SPINE W WO TWILAA Uziel 06-16-2022 No MRI evidence of discitis-osteomyeliti s or epidural abscess. 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 [facility] CONSOLIDATED EXAMINATION: MRI OF THE LUMBAR SPINE WITHOUT AND WITH CONTRAST 06/16/2022 12:49 pm TECHNIQUE: Multiplanar multisequence MRI of the lumbar spine was performed without and with the administration of intravenous contrast. COMPARISON: None. HISTORY: ORDERING SYSTEM PROVIDED HISTORY: look forseptic seeding of the lumbar spine TECHNOLOGIST PROVIDED HISTORY: look forseptic seeding of the lumbar spine Decision Support Exception - unselect if not a suspected or confirmed emergency medical condition->Emergency Medical Condition (MA) Reason for Exam: look forseptic seeding of the lumbar spine FINDINGS: BONES/ALIGNMENT: There is mild straightening of the normal lumbar lordosis. No acute fracture or traumatic subluxation is identified. There is mild degenerative disc disease at L3-4. A chronic Schmorl's node is seen along the anterior, inferior endplate of L1. There is no MRI evidence of discitis-osteomyeliti s and no abnormal enhancement is identified on the post contrast images. SPINAL CORD: The conus terminates normally. SOFT TISSUES: No abnormal enhancement is seen of the lumbar spine. No paraspinal mass identified. L1-L2: There is no significant disc protrusion, spinal canal stenosis or neural foraminal narrowing. L2-L3: There is no significant disc protrusion, spinal canal stenosis or neural foraminal narrowing. L3-L4: There is high signal within the posterior annulus consistent with a high-intensity zone. A lateralized disc bulge results in onmz-qo-agutlqlu narrowing of the left neural foramen. L4-L5: There is no significant disc protrusion, spinal canal stenosis or neural foraminal narrowing. L5-S1: There is no significant disc protrusion, spinal canal stenosis or neural foraminal narrowing. [facility] CONSOLIDATED Richard Haas MD - 06/16/2022 EXAMINATION: MRI OF THE LUMBAR SPINE WITHOUT AND WITH CONTRAST 06/16/2022 12:49 pm TECHNIQUE: Multiplanar multisequence MRI of the lumbar spine was performed without and with the administration of intravenous contrast. COMPARISON: None. HISTORY: ORDERING SYSTEM PROVIDED HISTORY: look forseptic seeding of the lumbar spine TECHNOLOGIST PROVIDED HISTORY: look forseptic seeding of the lumbar spine Decision Support Exception - unselect if not a suspected or confirmed emergency medical condition->Emergency Medical Condition (MA) Reason for Exam: look forseptic seeding of the lumbar spine FINDINGS: BONES/ALIGNMENT: There is mild straightening of the normal lumbar lordosis. No acute fracture or traumatic subluxation is identified. There is mild degenerative disc disease at L3-4. A chronic Schmorl's node is seen along the anterior, inferior endplate of L1. There is no MRI evidence of discitis-osteomyeliti s and no abnormal enhancement is identified on the post contrast images. SPINAL CORD: The conus terminates normally. SOFT TISSUES: No abnormal enhancement is seen of the lumbar spine. No paraspinal mass identified. L1-L2: There is no significant disc protrusion, spinal canal stenosis or neural foraminal narrowing. L2-L3: There is no significant disc protrusion, spinal canal stenosis or neural foraminal narrowing. L3-L4: There is high signal within the posterior annulus consistent with a high-intensity zone. A lateralized disc bulge results in fani-qv-mjxedwhp narrowing of the left neural foramen. L4-L5: There is no significant disc protrusion, spinal canal stenosis or neural foraminal narrowing. L5-S1: There is no significant disc protrusion, spinal canal stenosis or neural foraminal narrowing. IMPRESSION: No MRI evidence of discitis-osteomyeliti s or epidural abscess. 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 [employer] Work Phone: MRI LUMBAR SPINE W FELIPE MATTS[place] STOrdered By: Richard Haas on 06-16-2022 [employer] Work Phone: MRSA DNA Probe, Nasalon -0 MRSA, DNA, Nasal Negative NEGATIVE [facility] [employer] Comment on above: NEGATIVE: MRSA DNA n ot detected by nucleic acid amplification. Results should be used as an adjunct to nosocomial control efforts to identify patients needing enhanced precautions. The test is not intended to identify patients with staphylococcal infections. Results should not be used to guide or monitor treatment for MRSA infections. Specimen Description .NASAL SWAB [facility] [email or web address] No Panel Informationon 06-16 Radiology Study observation (narrative) [employer] Work Phone: [facility] Procalcitoninon 06-16-2022 Interpretation and review of laboratory results Abnormal [facility] Procalcitonin 0.21 ng/mL High NINF - 0.09 ng/mL [facility] Comment on above: Suspected Sepsis: <0.50 ng/mL Low likelihood of sepsis. 0.50-2.00 ng/mL Increased likelihood of sepsis. Antibiotics encouraged. >2.00 ng/mL High risk of sepsis/shock. Antibiotics strongly encouraged. Suspected Lower Resp Tract Infections: <0.24 ng/mL Low likelihood of bacterial infection. >0.24 ng/mL Increased likelihood of bacterial infection. Antibiotics encouraged. With successful antibiotic therapy, PCT levels should decrease rapidly. (Half-life of 24 to 36 hours.) Procalcitonin values from samples collected within the first 6 hours of systemic infection may still be low. Retesting may be indicated. Values from day 1 and day 4 can be entered into the Change in Procalcitonin Calculator ([employer][email or web address].Primo Round) to determine the patient's Mortality Risk Prognosis In healthy neonates, plasma Procalcitonin (PCT) concentrations increase gradually after , reaching peak values at about 24 hours of age then decrease to normal values below 0.5 ng/mL by 48-72 hours of age. [facility] Interpretation and review of laboratory results Abnormal [facility] Procalcitonin 0.2 ng/mL High NINF - 0.09 ng/mL [facility] Comment on above: Suspected Sepsis: <0.50 ng/mL Low likelihood of sepsis. 0.50-2.00 ng/mL Increased likelihood of sepsis. Antibiotics encouraged. >2.00 ng/mL High risk of sepsis/shock. Antibiotics strongly encouraged. Suspected Lower Resp Tract Infections: <0.24 ng/mL Low likelihood of bacterial infection. >0.24 ng/mL Increased likelihood of bacterial infection. Antibiotics encouraged. With successful antibiotic therapy, PCT levels should decrease rapidly. (Half-life of 24 to 36 hours.) Procalcitonin values from samples collected within the first 6 hours of systemic infection may still be low. Retesting may be indicated. Values from day 1 and day 4 can be entered into the Change in Procalcitonin Calculator (www.pkpiqg-ojt-zuilehdwca.com) to determine the patient's Mortality Risk Prognosis In healthy neonates, plasma Procalcitonin (PCT) concentrations increase gradually after , reaching peak values at about 24 hours of age then decrease to normal values below 0.5 ng/mL by 48-72 hours of age. [facility] Protime-INRon 06-16-2022 INR Coag (Bld) [Relative time] 1.0 {INR} [facility] Comment on above: Therapeutic Range: Moderate Anticoagulant Intensity: INR = 2.0-3.0 High Anticoagulant Intensity: INR = 2.5-3.5 PT Coag (PPP) [Time] 10.[address] [facility] STREP SCREEN GROUP A THROATo n 06-16-2022 S. pyogenes Ag Ql (Throat) Negative NEGATIVE [facility] Comment on above: Rapid Strep A negati ve. A negative Rapid Group A Strep Screen result does not rule out the possibility of Group A Streptococci in the specimen. A Group A Strep DNA test is available upon request. Source .THROAT SWAB [facility] Sputum gram stainon 06-16-20 22 Direct Exam [facility] Specimen Description .ASPIRATED SPUTUM [facility] Strep Pneumoniae Antigenon 0 06-16-2022 Source .URINE [facility] Strep pneumo Ag Negative [facility] Comment on above: Strep pneumoniae ant igen not detected [facility] Urinalysis with Reflex to Cu ltureon 06-16-2022 Bilirubin Urine Negative NEGATIVE [facility] Color, UA Yellow Yellow [facility] Glucose, Ur Negative NEGATIVE [facility] Ketones Ql (U) Negative NEGATIVE [facility] Leukocyte esterase Test strip Ql (U) Negative NEGATIVE [facility] Nitrite, Urine Negative NEGATIVE [facility] pH, UA 6.5 5 - 8 [facility] Protein, UA Negative NEGATIVE [facility] Specific [place], UA 1.021 1.005 - 1.03 [facility] Turbidity UA Clear Clear [facility] Urinalysis Comments Microscopic exam not performed based on chemical results unless requested in original order. [facility] Urine Hgb Negative NEGATIVE [facility] Urobilinogen, Urine Normal Normal [facility] Basic Metabolic Panelon Anion gap [Moles/Vol] 11 mmol/L 9 - 17 mmol/L [facility] Calcium [Mass/Vol] 9.9 mg/dL 8.6 - 10. 4 mg/dL [facility] Chloride [Moles/Vol] 101 mmol/L 98 - 10 7 mmol/L [facility] CO2 [Moles/Vol] 24 mmol/L 20 - 31 mmol/L [facility] Creatinine [Mass/Vol] 0.8 mg/dL 0.7 - 1.2 mg/dL [facility] GFR >60 60 - PI NF mL/min [facility] GFR Non- >60 60 - PINF mL/min [facility] GFR/1.73 sq M.predicted MDRD (S/P/Bld) [Vol rate/Area] [facility] Comment on above: Average GFR for 40-4 9 years old: 99 mL/min/1.73sq m Chronic Kidney Disease: <60 mL/min/1.73sq m Kidney failure: <15 mL/min/1.73sq m eGFR calculated using average adult body mass. Additional eGFR calculator available at: http://www.Cherry/multiple_crcl_2012.htm Glucose [Mass/Vol] 105 mg/dL High 70 - 99 mg/dL [facility] Interpretation and review of laboratory results Abnormal [facility] Potassium [Moles/Vol] 4.2 mmol/L 3.7 - 5.3 mmol/L [facility] Sodium [Moles/Vol] 136 mmol/L 135 - 144 mmol/L [facility] Urea nitrogen (BldV) [Mass/Vol] 15 mg/dL 6 - 20 mg/dL [facility] CBC with Auto Differentialon 06-15-2022 Absolute Eos # 0.27 [facility] Absolute Immature Granulocyte 0.04 [facility] Absolute Lymph # 1.20 [facility] Absolute Kings # 1.07 [facility] Basophils (Bld) [#/Vol] 0.05 10*3/uL [facility] Basophils/100 WBC (Bld) 1 % 0 - 2 % [facility] Eosinophils/100 WBC (Bld) 3 % 1 - 4 % [facility] Hematocrit (Bld) [Volume fraction] 38.8 % Low 40.7 - 50.3 % [facility] Hemoglobin (Bld) [Mass/Vol] 12.9 g/dL Low 13 - 17 g/dL [facility] Immature granulocytes/100 WBC (Bld) 0 % 0 [facility] Interpretation and review of laboratory results Abnormal [facility] Lymphocytes/100 WBC (Bld) 11 % Low 24 - 43 % [facility] MCH (RBC) [Entitic mass] 27.9 pg 25. 2 - 33.5 pg [facility] MCHC (RBC) [Mass/Vol] 33.2 g/dL 28.4 - 34.8 g/dL [facility] MCV (RBC) [Entitic vol] 83.8 fL 82.6 - 102.9 fL [facility] Monocytes/100 WBC (Bld) 10 % 3 - 12 % [facility] NRBC Automated 0.0 0.0 per 100 WBC [facility] Platelet distribution width (Bld) [Ratio] 18.5 % High 11.8 - 14.4 % [facility] Platelet mean volume (Bld) [Entitic vol] 9.8 fL 8.1 - 13.5 fL [facility] Platelets (Bld) [#/Vol] 224 10*3/uL [facility] RBC (Bld) [#/Vol] 4.63 10*6/uL 4.21 - 5.7 7 m/uL [facility] [facility] RBC (Bld) [#/Vol] ANISOCYTOSIS PRESENT [facility] Segmented neutrophils/100 WBC (Bld) 75 % High 36 - 65 % [facility] Segs Absolute 7.90 [facility] WBC (Bld) [#/Vol] 10.5 10*3/uL MAURA Nguyen [facility] COVID-19, Rapidon 06-15-2022 SARS-CoV-2 (COVID-19) RNA CHARO+probe Ql (Unsp spec) Not detected Not Detected [facility] Comment on above: Rapid NAAT: The specimen is NEGATIVE for SARS-CoV-2, the novel coronavirus associated with COVID-19. The ID NOW COVID-19 assay is designed to detect the virus that causes COVID-19 in patients with signs and symptoms of infection who are suspected of COVID-19. An individual without symptoms of COVID-19 and who is not shedding SARS-CoV-2 virus would expect to have a negative (not detected) result in this assay. Negative results should be treated as presumptive and, if inconsistent with clinical signs and symptoms or necessary for patient management, should be tested with an alternative molecular assay. Negative results do not preclude SARS-CoV-2 infection and should not be used as the sole basis for patient management decisions. Fact sheet for Healthcare Providers: https://www.fda.gov/media/359742/download Fact sheet for Patients: https://www.fda.gov/media/364228/download Methodology: Isothermal Nucleic Acid Amplification Specimen Description .NASOPHARYNGEAL SWAB [facility] CT CHEST PULMONARY EMBOLISM W CONTRASTon 06-15-2022 Addendum by Akanksha Santoro MD on 06/15/2022 10:18 PM EDT ADDENDUM: There is mediastinal lymphadenopathy best visualized in subcarinal location which are likely reactive to abnormalities within the lungs. [facility] Work Phone: No evidence of pulmonary embolism. There are multiple nodules left upper lobe with the largest one measuring 19 mm. These lesions are associated with surrounding ground glass density. Similar 16 mm nodule is noted within the superior segment of the right lower lobe and 12 and 11 mm nodules are noted within the right upper lobe.. Although the pattern of these lesions are most likely infectious/inflammato ry in etiology, no characteristic cavitation of septic pulmonary emboli are noted Linear consolidative changes of bilateral lower lobes. The findings are most likely due to atelectasis. [facility] CONSOLIDATED EXAMINATION: CTA OF THE CHEST 06/15/2022 9:04 pm TECHNIQUE: CTA of the chest was performed after the administration of intravenous contrast. Multiplanar reformatted images are provided for review. MIP images are provided for review. Automated exposure control, iterative reconstruction, and/or weight based adjustment of the mA/kV was utilized to reduce the radiation dose to as low as reasonably achievable. COMPARISON: None. HISTORY: ORDERING SYSTEM PROVIDED HISTORY: r/o septic emboli TECHNOLOGIST PROVIDED HISTORY: r/o septic emboli Reason for Exam: r/o septic emboli FINDINGS: Pulmonary Arteries: Pulmonary arteries are adequately opacified for evaluation. No evidence of intraluminal filling defect to suggest pulmonary embolism. Main pulmonary artery is normal in caliber. Mediastinum: No evidence of mediastinal lymphadenopathy. The heart and pericardium demonstrate no acute abnormality. There is no acute abnormality of the thoracic aorta. Lungs/pleura: There are multiple nodules left upper lobe with the largest one measuring 19 mm. These lesions are associated with surrounding ground glass density. Similar 16 mm nodule is noted within the superior segment of the right lower lobe and 12 and 11 mm nodules are noted within the right upper lobe.. Although the pattern of these lesions are most likely infectious/inflammato ry in etiology, no characteristic cavitation of septic pulmonary emboli are noted... No pulmonary edema. Linear consolidative changes of bilateral lower lobes. The findings are most likely due to atelectasis. No evidence of pleural effusion or pneumothorax. Upper Abdomen: Limited images of the upper abdomen are unremarkable. Soft Tissues/Bones: No acute bone or soft tissue abnormality. [facility] Akanksha Samuels MD - 06/15/2022 EXAMINATION: CTA OF THE CHEST 06/15/2022 9:04 pm TECHNIQUE: CTA of the chest was performed after the administration of intravenous contrast. Multiplanar reformatted images are provided for review. MIP images are provided for review. Automated exposure control, iterative reconstruction, and/or weight based adjustment of the mA/kV was utilized to reduce the radiation dose to as low as reasonably achievable. COMPARISON: None. HISTORY: ORDERING SYSTEM PROVIDED HISTORY: r/o septic emboli TECHNOLOGIST PROVIDED HISTORY: r/o septic emboli Reason for Exam: r/o septic emboli FINDINGS: Pulmonary Arteries: Pulmonary arteries are adequately opacified for evaluation. No evidence of intraluminal filling defect to suggest pulmonary embolism. Main pulmonary artery is normal in caliber. Mediastinum: No evidence of mediastinal lymphadenopathy. The heart and pericardium demonstrate no acute abnormality. There is no acute abnormality of the thoracic aorta. Lungs/pleura: There are multiple nodules left upper lobe with the largest one measuring 19 mm. These lesions are associated with surrounding ground glass density. Similar 16 mm nodule is noted within the superior segment of the right lower lobe and 12 and 11 mm nodules are noted within the right upper lobe.. Although the pattern of these lesions are most likely infectious/inflammato ry in etiology, no characteristic cavitation of septic pulmonary emboli are noted... No pulmonary edema. Linear consolidative changes of bilateral lower lobes. The findings are most likely due to atelectasis. No evidence of pleural effusion or pneumothorax. Upper Abdomen: Limited images of the upper abdomen are unremarkable. Soft Tissues/Bones: No acute bone or soft tissue abnormality. IMPRESSION: No evidence of pulmonary embolism. There are multiple nodules left upper lobe with the largest one measuring 19 mm. These lesions are associated with surrounding ground glass density. Similar 16 mm nodule is noted within the superior segment of the right lower lobe and 12 and 11 mm nodules are noted within the right upper lobe.. Although the pattern of these lesions are most likely infectious/inflammato ry in etiology, no characteristic cavitation of septic pulmonary emboli are noted Linear consolidative changes of bilateral lower lobes. The findings are most likely due to atelectasis. [employer] Work Phone: Radiology Study observation (narrative) [facility] Work Phone: CT CHEST PULMONARY EMBOLISM W CONTRASTOrdered By: Akanksha Santoro on 06-15-2022 [employer] Work Phone: Hepatic Function Panelon Albumin [Mass/Vol] 3.4 g/dL Low 3.5 - 5.2 g/dL [employer] Albumin/Globulin [Mass ratio] 0.8 {ratio} Low 1 - 2.5 [employer] ALP (Bld) [Catalytic activity/Vol] 85 U/L 40 - 129 U/L [employer] ALT [Catalytic activity/Vol] 22 U/L 5 - 41 U/L [employer] AST [Catalytic activity/Vol] 16 U/L NINF - 40 U/L [facility] Bilirubin [Mass/Vol] 0.41 mg/dL 0.3 - 1 .2 mg/dL [facility] Bilirubin, Indirect 0.26 mg/dL 0 - 1 mg/dL [facility] Bilirubin.indirect [Mass/Vol] 0.15 mg/dL NINF - 0.31 mg/dL [facility] Free PSA/Total PSA [Mass fraction] 7.5 g/dL 6.4 - 8.3 g/dL [facility] Interpretation and review of laboratory results Abnormal [facility] Lactate, Sepsison 06-15-2022 Lactic Acid, Sepsis, Whole Blood 1.0 mmol/L 0.5 - 1.9 mmol/L [facility] Lactic Acid, Sepsis, Whole Blood 1.6 mmol/L 0.5 - 1.9 mmol/L [facility] Sedimentation Rateon 022 Interpretation and review of laboratory results Abnormal [facility] Sed Rate 35 High [facility] Comment on above: ADDED ON [facility] Troponinon 06-15-2022 Troponin, High Sensitivity ng/L 0 - 22 ng/L [facility] Comment on above: High Sensitivity Troponin values cannot be compared with other Troponin methodologies. Patients with high levels of Biotin oral intake (i.e >5mg/day) may have falsely decreased Troponin levels. Samples collected within 8 hours of biotin intake may require additional information for diagnosis. [facility] Troponin, High Sensitivity ng/L 0 - 22 ng/L [facility] Comment on above: High Sensitivity Troponin values cannot be compared with other Troponin methodologies. Patients with high levels of Biotin oral intake (i.e >5mg/day) may have falsely decreased Troponin levels. Samples collected within 8 hours of biotin intake may require additional information for diagnosis. [facility] XR CHEST (2 VW)on 06-15-2022 Increased opacity in the right infrahilar region compared other studies which could represent a small area of atelectasis, pneumonia or scarring in this area. Radiographic follow-up may be helpful. [facility] RIS CONSOLIDATED EXAMINATION: TWO XRAY VIEWS OF THE CHEST 06/15/2022 4:43 pm COMPARISON: Radiographs 01/20/2022, 12/12/2021 and 10/23/[address] 02/14/2022. HISTORY: ORDERING SYSTEM PROVIDED HISTORY: chest pain TECHNOLOGIST PROVIDED HISTORY: chest pain FINDINGS: On the full shadow projects over the left lung base. There is mild increased density in the right infrahilar region with mild linear atelectasis or scarring in this area. The costophrenic angles are sharp. The cardiomediastinal silhouette and pulmonary vessels appear normal. [facility] CONSOLIDATED Dre Gonsalves MD - 06/15/2022 EXAMINATION: TWO XRAY VIEWS OF THE CHEST 06/15/2022 4:43 pm COMPARISON: Radiographs 01/20/2022, 12/12/2021 and 10/23/[address] 02/14/2022. HISTORY: ORDERING SYSTEM PROVIDED HISTORY: chest pain TECHNOLOGIST PROVIDED HISTORY: chest pain FINDINGS: On the full shadow projects over the left lung base. There is mild increased density in the right infrahilar region with mild linear atelectasis or scarring in this area. The costophrenic angles are sharp. The cardiomediastinal silhouette and pulmonary vessels appear normal. IMPRESSION: Increased opacity in the right infrahilar region compared other studies which could represent a small area of atelectasis, pneumonia or scarring in this area. Radiographic follow-up may be helpful. [employer] Work Phone: Radiology Study observation (narrative) [employer] Work Phone: XR CHEST (2 VW)Ordered By: Soledad Gonsalves on 06-15-2022 [employer] Work Phone: CBC with Auto Differentialon 06-13-2022 Absolute Eos # 0.20 [email or web address] Absolute Immature Granulocyte 0.03 [facility] [employer] Absolute Lymph # 1.03 Low [facility] Absolute Kings # 0.91 [facility] [email or web address] Basophils (Bld) [#/Vol] 0.03 10*3/uL [facility] Basophils/100 WBC (Bld) 0 % 0 - 2 % [facility] Eosinophils/100 WBC (Bld) 2 % 1 - 4 % [facility] Hematocrit (Bld) [Volume fraction] 38.5 % Low 40.7 - 50.3 % [facility] Hemoglobin (Bld) [Mass/Vol] 12.2 g/dL Low 13 - 17 g/dL [facility] Immature granulocytes/100 WBC (Bld) 0 % 0 [facility] Interpretation and review of laboratory results Abnormal [facility] Lymphocytes/100 WBC (Bld) 9 % Low 24 - 43 % [facility] MCH (RBC) [Entitic mass] 27.2 pg 25. 2 - 33.5 pg [facility] MCHC (RBC) [Mass/Vol] 31.7 g/dL 28.4 - 34.8 g/dL [facility] MCV (RBC) [Entitic vol] 85.9 fL 82.6 - 102.9 fL [facility] Monocytes/100 WBC (Bld) 8 % 3 - 12 % [facility] ON [facility] NRBC Automated 0.0 0.0 per 100 WBC [facility] Platelet distribution width (Bld) [Ratio] 18.5 % High 11.8 - 14.4 % [facility] Platelet mean volume (Bld) [Entitic vol] 9.3 fL 8.1 - 13.5 fL [facility] Platelets (Bld) [#/Vol] 181 10*3/uL [facility] RBC (Bld) [#/Vol] 4.48 10*6/uL 4.21 - 5.7 7 m/uL [facility] Segmented neutrophils/100 WBC (Bld) 81 % High 36 - 65 % [facility] Segs Absolute 9.54 High [facility] WBC (Bld) [#/Vol] 11.7 10*3/uL High [facility] CBC with Diffon 06-13-2022 Abs. Basophil 0.03 k/uL Normal 0.00-0.20 [facility] Comment on above: Performed By: #### C P, CDP #### [address] [place], [facility] Substance Addiction Coordinator: Joelle aPrker MD Abs.Imm.Granulocyte 0.03 k/uL Normal 0.00-0.30 [facility] Comment on above: Performed By: #### C P, CDP #### [address] [place], [place] [address] Substance Addiction Coordinator: Joelle Parker MD Abs.Neutrophil (Seg) 9.54 k/uL High 1.50-8.10 [facility] Comment on above: Performed By: #### C P, CDP #### [address] [place] [address] Substance Addiction Coordinator: Joelle Parker MD Basophils/100 WBC (Bld) 0 % Normal 0-2 [facility] Comment on above: Performed By: #### C P, CDP #### [address] [place], [place] [address] Substance Addiction Coordinator: Joelle Parker MD Eosinophils (Bld) [#/Vol] 0.20 10*3/uL Normal 0.00-0.44 [facility] Comment on above: Performed By: #### C P, CDP #### [address] [place], [facility] Substance Addiction Coordinator: Joelle Parker MD Eosinophils/100 WBC (Bld) 2 % Normal 1-4 [facility] Comment on above: Performed By: #### C P, CDP #### [address] [place] [address] Substance Addiction Coordinator: Joelle Parker MD Erythrocyte distribution width (RBC) [Ratio] 18.5 % High 11.8-14.4 [facility] Comment on above: Performed By: #### C P, CDP #### [address] [place], [facility]83 Substance Addiction Coordinator: Joelle Parker MD Hematocrit (Bld) [Volume fraction] 38.5 % Low 40.7-50.3 [facility] Comment on above: Performed By: #### C P, CDP #### [facility] [address] [place] [address] Dr[place], [place] [id number] Substance Addiction Coordinator: Joelle Parker MD Hemoglobin (Bld) [Mass/Vol] 12.2 g/dL Low 13.0-17.0 [facility] Comment on above: Performed By: #### C P, CDP #### [address] [place], [facility]83 Substance Addiction Coordinator: Joelle Parker MD Immature granulocytes/100 WBC (Bld) 0 % Normal 0 [facility] Comment on above: Performed By: #### C P, CDP #### [address] [place], [facility]83 Substance Addiction Coordinator: Joelle Parker MD Lymphocytes (Bld) [#/Vol] 1.03 10*3/uL Low 1.10-3.70 [facility] Comment on above: Performed By: #### C P, CDP #### [address] [place], [place] [id number] Substance Addiction Coordinator: Joelle Parker MD Lymphocytes/100 WBC (Bld) 9 % Low 24-43 [facility] Comment on above: Performed By: #### C P, CDP #### [facility] [address] [place] [address] Dr. [place], [facility]83 Substance Addiction Coordinator: Joelle Parker MD MCH (RBC) [Entitic mass] 27.2 pg Normal 25.2-33.5 [facility] Comment on above: Performed By: #### C P, CDP #### [facility] [address] [place] [address] Dr[place], [place] [id number] Substance Addiction Coordinator: Joelle Parker MD MCHC (RBC) [Mass/Vol] 31.7 g/dL Normal 28.4-34.8 [facility] Comment on above: Performed By: #### C P, CDP #### [address] [place], [facility]83 Substance Addiction Coordinator: Joelle Parker MD MCV (RBC) [Entitic vol] 85.9 fL Normal 82.6-102.9 [facility] Comment on above: Performed By: #### C P, CDP #### [address] [place], [place] [address] Substance Addiction Coordinator: Joelle Parker MD Monocytes (Bld) [#/Vol] 0.91 10*3/uL Normal 0.10-1.20 [facility] Comment on above: Performed By: #### C P, CDP #### [address] [place], [place] [address] Substance Addiction Coordinator: Joelle Parker MD Monocytes/100 WBC (Bld) 8 % Normal 3-12 [facility] Comment on above: Performed By: #### C P, CDP #### [address] [place], [place] [address] Substance Addiction Coordinator: Joelle Parker MD Neutrophil (Seg) 81 % High 36-65 [facility] Comment on above: Performed By: #### C P, CDP #### [address] [place], [facility]83 Substance Addiction Coordinator: Joelle Parker MD NRBC Automated 0.0 per 100 WBC Normal 0.0 [facility] Comment on above: Performed By: #### C P, CDP #### [address] [place], [facility]83 Substance Addiction Coordinator: Joelle Parker MD Platelet mean volume (Bld) [Entitic vol] 9.3 fL Normal 8.1-13.5 [facility] Comment on above: Performed By: #### C P, CDP #### [facility] [address] [place], [place] [id number] Substance Addiction Coordinator: Joelle Parker MD Platelets (Bld) [#/Vol] 181 10*3/uL Normal 138-453 [facility] Comment on above: Performed By: #### C P, CDP #### [facility] [address] [place] [address] Substance Addiction Coordinator: Joelle Parker MD RBC (Bld) [#/Vol] 4.48 10*6/uL Normal 4.21-5.77 [facility] Comment on above: Performed By: #### C P, CDP #### [facility] [address] [place] [address] Substance Addiction Coordinator: Joelle Parker MD WBC (Bld) [#/Vol] 11.7 10*3/uL High 3.5-11.3 [facility] Comment on above: Performed By: #### C P, CDP #### [address] [place] [address] Substance Addiction Coordinator: Joelle Parker MD Comp Metabolic Profon 2021 (cont.) [facility] Comment on above: Result Comment: Aver age GFR for 40-49 years old: 99 mL/min/1.73sq m Chronic Kidney Disease: <60 mL/min/1.73sq m Kidney failure: <15 mL/min/1.73sq m eGFR calculated using average adult body mass. Additional eGFR calculator available at: http://www.[employer].com/multiple_crcl_2011.htm Performed By: #### C P, CDP #### [facility] [address] [place] [address] Substance Addiction Coordinator: Joelle Parker MD Albumin [Mass/Vol] 3.8 g/dL Normal 3.5-5.2 [facility] Comment on above: Performed By: #### C P, CDP #### [facility] [address] [place], [place] [phone] Substance Addiction Coordinator: Joelle Parker MD Albumin/Glob Ratio 0.9 Low 1.0-2.5 [facility] Comment on above: Performed By: #### C P, CDP #### [facility] [address] [place], [place] [id number] Substance Addiction Coordinator: Joelle Parker MD Alkaline Phos 93 U/L Normal 40-129 [facility] Comment on above: Performed By: #### C P, CDP #### [facility] [address] [place], [place] [id number] Substance Addiction Coordinator: Joelle Parker MD ALT [Catalytic activity/Vol] 28 U/L Normal 5-41 [facility] Comment on above: Performed By: #### C P, CDP #### [facility] [address] [place], [place] [id number] Substance Addiction Coordinator: Joelle Parker MD Anion gap [Moles/Vol] 11 mmol/L Normal 9-17 [facility] Comment on above: Performed By: #### C P, CDP #### [facility] [address] [place], [place] [id number] Substance Addiction Coordinator: Joelle Parker MD AST [Catalytic activity/Vol] 19 U/L Normal <40 [facility] Comment on above: Performed By: #### C P, CDP #### [facility] [address] [place], [place] [id number] Substance Addiction Coordinator: Joelle Parker MD Bilirubin [Mass/Vol] 0.39 mg/dL Normal 0.3-1.2 [facility] Comment on above: Performed By: #### C P, CDP #### [facility] [address] [place], [place] [id number] Substance Addiction Coordinator: Joelle Parker MD BUN/CRE Ratio 18 Normal 9-20 [facility] Comment on above: Performed By: #### C P, CDP #### [facility] [address] [place], [place] [id number] Substance Addiction Coordinator: Joelle Parker MD Calcium [Mass/Vol] 9.7 mg/dL Normal 8.6-10.4 [facility] Comment on above: Performed By: #### C P, CDP #### [facility] [address] [place], [place] [id number] Substance Addiction Coordinator: Joelle Parker MD Chloride [Moles/Vol] 101 mmol/L Normal 98-107 [facility] Comment on above: Performed By: #### C P, CDP #### [facility] [address] [place], [place] [phone] Substance Addiction Coordinator: Joelle Parker MD CO2 [Moles/Vol] 25 mmol/L Normal 20-31 [facility] Comment on above: Performed By: #### C P, CDP #### [facility] [address] [place], [place] [phone] Substance Addiction Coordinator: Joelle Parker MD Creatinine [Mass/Vol] 0.85 mg/dL Normal 0.70-1.20 [facility] Comment on above: Performed By: #### C P, CDP #### [facility] [address] [place], [place] 2019[address] Substance Addiction Coordinator: Joelle Parker MD GFR, Amer >60 Normal >60 [facility] Comment on above: Performed By: #### C P, CDP #### [facility] [address] [place], [place] [id number] Substance Addiction Coordinator: Joelle Parker MD GFR,non Amer >60 Normal >60 [facility] Comment on above: Performed By: #### C P, CDP #### [facility] [address] [place], [place] [phone] Substance Addiction Coordinator: Joelle Parker MD Glucose [Mass/Vol] 106 mg/dL High 70-99 [facility] Comment on above: Performed By: #### C P, CDP #### [facility] [address] [place] [address] Dr[place], [place] [id number] Substance Addiction Coordinator: Joelle Parker MD Potassium [Moles/Vol] 4.3 mmol/L Normal 3.7-5.3 [facility] Comment on above: Performed By: #### C P, CDP #### [facility] [address] [place] [address] Dr[place], [place] [phone] Substance Addiction Coordinator: Joelle Parker MD Protein [Mass/Vol] 8.2 g/dL Normal 6.4-8.3 [facility] Comment on above: Performed By: #### C P, CDP #### [address] [place], [place] [id number] Substance Addiction Coordinator: Joelle Parker MD Sodium [Moles/Vol] 137 mmol/L Normal 135-144 [facility] Comment on above: Performed By: #### C P, CDP #### [address] [place] [address] Substance Addiction Coordinator: Joelle Parker MD Staging: Normal [facility] Comment on above: Result Comment: Stag e 1: Some kidney damage normal GFR Stage 2: Mild kidney damage GFR 60-89 Stage 3: Moderate kidney damage GFR 30-59 Stage 4: Severe kidney damage GFR 15-29 Stage 5: Severe kidney damage GFR <15 ESRD - chronic treatment by dialysis or transplant Performed By: #### C P, CDP #### [facility] [address] [place] [address] Dr[place], [place] [id number] Substance Addiction Coordinator: Joelle Parker MD Urea nitrogen [Mass/Vol] 15 mg/dL Normal 6-20 [facility] Comment on above: Performed By: #### C P, CDP #### [facility] [facility] [address] [place] [address] Substance Addiction Coordinator: Joelle Parker MD Comprehensive Metabolic Pane tarun 06-13-2022 Albumin [Mass/Vol] 3.8 g/dL 3.5 - 5.2 g/dL [facility] Albumin/Globulin [Mass ratio] 0.9 {ratio} Low 1 - 2.5 [facility] ALP (Bld) [Catalytic activity/Vol] 93 U/L 40 - 129 U/L [facility] ALT [Catalytic activity/Vol] 28 U/L 5 - 41 U/L [facility] Anion gap [Moles/Vol] 11 mmol/L 9 - 17 mmol/L [facility] AST [Catalytic activity/Vol] 19 U/L NINF - 40 U/L [facility] Bilirubin [Mass/Vol] 0.39 mg/dL 0.3 - 1 .2 mg/dL [facility] Calcium [Mass/Vol] 9.7 mg/dL 8.6 - 10. 4 mg/dL [facility] Chloride [Moles/Vol] 101 mmol/L 98 - 10 7 mmol/L [facility] CO2 [Moles/Vol] 25 mmol/L 20 - 31 mmol/L [facility] Creatinine [Mass/Vol] 0.85 mg/dL 0.7 - 1.2 mg/dL [facility] Free PSA/Total PSA [Mass fraction] 8.2 g/dL 6.4 - 8.3 g/dL [facility] GFR >60 60 - PI NF mL/min [facility] GFR Non- >60 60 - PINF mL/min [facility] Glucose [Mass/Vol] 106 mg/dL High 70 - 99 mg/dL [facility] Interpretation and review of laboratory results Abnormal [facility] Potassium [Moles/Vol] 4.3 mmol/L 3.7 - 5.3 mmol/L [facility] Sodium [Moles/Vol] 137 mmol/L 135 - 144 mmol/L [facility] Urea nitrogen (BldV) [Mass/Vol] 15 mg/dL 6 - 20 mg/dL [facility] Urea nitrogen/Creatinine (Bld) [Mass ratio] 18 9 - [address] [facility] Laboratory - Chemistry and C hemistry - challengeon 06-13-2022 GFR/1.73 sq M.predicted MDRD (S/P/Bld) [Vol rate/Area] [facility] Comment on above: Average GFR for 40-4 9 years old: 99 mL/min/1.73sq m Chronic Kidney Disease: <60 mL/min/1.73sq m Kidney failure: <15 mL/min/1.73sq m eGFR calculated using average adult body mass. Additional eGFR calculator available at: http://www.Cherry/multiple_crcl_2012.htm Stage 1: Some kidney damage normal GFR Stage 2: Mild kidney damage GFR 60-89 Stage 3: Moderate kidney damage GFR 30-59 Stage 4: Severe kidney damage GFR 15-29 Stage 5: Severe kidney damage GFR <15 ESRD - chronic treatment by dialysis or transplant Cult,Blood 05-22-2022 Cult,Blood Specimen Description .BLOOD Culture NO GROWTH 5 DAYS Report Status FINAL 05/22/2022 Normal [facility] Comment on above: Performed By: #### B C #### [facility] [address] [place] [address] [place] [address] Substance Addiction Coordinator: Joelle Parker MD [facility] 05-21-2022 Cult,Blood Specimen Description .BLOOD Special Requests 10ML RIGHT HAND Culture POSITIVE Blood Culture DIRECT GRAM STAIN FROM BOTTLE: YEAST NATHANIEL ALBICANS (NOTE) Direct Gram Stain from bottle result called to and read back by: DR MORE @ [phone] ON [id number]. KEB Report Status FINAL 05/21/2022 Abnormal [facility] Comment on above: Performed By: #### B C #### [facility] [address] [place] [address] [place] [address] Substance Addiction Coordinator: Joelle Parker MD [facility] 05-11-2022 Cult,Blood Specimen Description .BLOOD Special Requests 20ML LEFT HAND Culture POSITIVE Blood Culture DIRECT GRAM STAIN FROM BOTTLE: YEAST NATHANIEL ALBICANS (NOTE) Direct Gram Stain from bottle result called to and read back by:BILLY KINNEY ROASTER HELPER [id number] 05-09-22 RB MIKA Report Status FINAL 05/11/2022 Abnormal [facility] Comment on above: Performed By: #### B C #### [facility] [address] [place], [place] [id number] Substance Addiction Coordinator: Joelle Parker MD Cult, Bloodon 05-10-2022 Cult, Blood Specimen Description .BLOOD Special Requests 20ML RIGHT HAND Culture NO GROWTH 5 DAYS Report Status FINAL 05/10/2022 Normal [facility] Comment on above: Performed By: #### B C #### [facility] [address] [place] [address] Substance Addiction Coordinator: Joelle Parker MD MRI ANKLE LEFT WO CONTRASTon 05-08-2022 1. No evidence of acute osteomyelitis. Irregularity along the posterosuperior process of the calcaneus is likely postsurgical. 2. Partial-thickness tearing of the insertional Achilles tendon involving approximately 1/3 of the tendon thickness. Moderate to advanced Achilles tendinopathy. [facility] RIS CONSOLIDATED EXAMINATION: MRI OF THE LEFT ANKLE WITHOUT CONTRAST, 05/07/2022 9:51 am TECHNIQUE: Multiplanar multisequence MRI of the left ankle was performed without the administration of intravenous contrast. COMPARISON: MRI ankle dated 01/23/2022, radiographs dated 12/13/2021, CT dated 05/05/2022 HISTORY: ORDERING SYSTEM PROVIDED HISTORY: Achilles rupture TECHNOLOGIST PROVIDED HISTORY: Achilles rupture What is the sedation requirement?->None Reason for Exam: Achilles rupture FINDINGS: SYNDESMOTIC LIGAMENTS: The tibiofibular syndesmosis and syndesmotic ligaments are intact. LATERAL COLLATERAL LIGAMENT COMPLEX: The anterior talofibular ligament is attenuated. The calcaneofibular and posterior talofibular ligaments are intact. DELTOID LIGAMENT COMPLEX: There is a tiny focus of increased T2 signal within the deep fibers of deltoid ligament consistent with small partial-thickness tearing. There is no complete disruption. SINUS TARSI AND SPRING LIGAMENT: The sinus tarsi fat is preserved. The superomedial portion of the spring ligament is intact. MEDIAL TENDONS: The tibialis posterior, flexor digitorum longus and flexor hallucis longus tendons are intact. LATERAL TENDONS: The peroneal tendons are located and intact. ANTERIOR TENDONS: Anterior tendons are intact. ACHILLES TENDON: There is marked thickening of the distal Achilles tendon. There is fluid signal intensity along the anterior fibers of the distal Achilles tendon consistent with partial-thickness tearing. This tearing measures approximately 10 by 8 mm. There is no complete tear or retraction. The partial-thickness tearing involves approximately 1/3 of the tendon thickness. Retrocalcaneal bursitis has significantly improved. There is irregularity of the posterosuperior cortex of the calcaneus, as seen on the CT exam. There is no significant associated marrow replacement or underlying edema. PLANTAR FASCIA: The plantar fascia is intact. TARSAL TUNNEL: There are no obstructing lesions in the tarsal tunnel. BONE MARROW: There is no evidence of acute fracture or dislocation. There is mild edema within the medial and lateral margin of the posterior calcaneus. There is no convincing evidence of osteomyelitis. JOINT SPACES: There is no talar dome osteochondral lesion. There is no focal or diffuse synovial process. The Lisfranc ligament is intact. [facility]IS CON[facility] Chau Lomax MD - 05/08/2022 EXAMINATION: MRI OF THE LEFT ANKLE WITHOUT CONTRAST, 05/07/2022 9:51 am TECHNIQUE: Multiplanar multisequence MRI of the left ankle was performed without the administration of intravenous contrast. COMPARISON: MRI ankle dated 01/23/2022, radiographs dated 12/13/2021, CT dated 05/05/2022 HISTORY: ORDERING SYSTEM PROVIDED HISTORY: Achilles rupture TECHNOLOGIST PROVIDED HISTORY: Achilles rupture What is the sedation requirement?->None Reason for Exam: Achilles rupture FINDINGS: SYNDESMOTIC LIGAMENTS: The tibiofibular syndesmosis and syndesmotic ligaments are intact. LATERAL COLLATERAL LIGAMENT COMPLEX: The anterior talofibular ligament is attenuated. The calcaneofibular and posterior talofibular ligaments are intact. DELTOID LIGAMENT COMPLEX: There is a tiny focus of increased T2 signal within the deep fibers of deltoid ligament consistent with small partial-thickness tearing. There is no complete disruption. SINUS TARSI AND SPRING LIGAMENT: The sinus tarsi fat is preserved. The superomedial portion of the spring ligament is intact. MEDIAL TENDONS: The tibialis posterior, flexor digitorum longus and flexor hallucis longus tendons are intact. LATERAL TENDONS: The peroneal tendons are located and intact. ANTERIOR TENDONS: Anterior tendons are intact. ACHILLES TENDON: There is marked thickening of the distal Achilles tendon. There is fluid signal intensity along the anterior fibers of the distal Achilles tendon consistent with partial-thickness tearing. This tearing measures approximately 10 by 8 mm. There is no complete tear or retraction. The partial-thickness tearing involves approximately 1/3 of the tendon thickness. Retrocalcaneal bursitis has significantly improved. There is irregularity of the posterosuperior cortex of the calcaneus, as seen on the CT exam. There is no significant associated marrow replacement or underlying edema. PLANTAR FASCIA: The plantar fascia is intact. TARSAL TUNNEL: There are no obstructing lesions in the tarsal tunnel. BONE MARROW: There is no evidence of acute fracture or dislocation. There is mild edema within the medial and lateral margin of the posterior calcaneus. There is no convincing evidence of osteomyelitis. JOINT SPACES: There is no talar dome osteochondral lesion. There is no focal or diffuse synovial process. The Lisfranc ligament is intact. IMPRESSION: 1. No evidence of acute osteomyelitis. Irregularity along the posterosuperior process of the calcaneus is likely postsurgical. 2. Partial-thickness tearing of the insertional Achilles tendon involving approximately 1/3 of the tendon thickness. Moderate to advanced Achilles tendinopathy. [employer] Work Phone: MRI ANKLE LEFT WO CONTRASTOr dered By: Chau Lomax on 05-08-2022 [employer] Work Phone: Basic Metabolic Panel w/ Ref rebecca to MGon 05-07-2022 Anion gap [Moles/Vol] 11 mmol/L 9 - 17 mmol/L [employer] Calcium [Mass/Vol] 8.9 mg/dL 8.6 - 10. 4 mg/dL [employer] Chloride [Moles/Vol] 105 mmol/L 98 - 10 7 mmol/L [employer] CO2 [Moles/Vol] 21 mmol/L 20 - 31 mmol/L [employer] Creatinine [Mass/Vol] 0.62 mg/dL Low 0.70 - 1.20 mg/dL [employer] GFR >60 >60 mL/min [employer] GFR Non- >60 >60 mL/min [facility] GFR/1.73 sq M.predicted MDRD (S/P/Bld) [Vol rate/Area] [facility] Comment on above: Average GFR for 40-4 9 years old: 99 mL/min/1.73sq m Chronic Kidney Disease: <60 mL/min/1.73sq m Kidney failure: <15 mL/min/1.73sq m eGFR calculated using average adult body mass. Additional eGFR calculator available at: http://www.Cherry/multiple_crcl_2012.htm Glucose [Mass/Vol] 87 mg/dL 70 - 99 mg/dL [facility] Interpretation and review of laboratory results Abnormal [facility] Potassium [Moles/Vol] 4.2 mmol/L 3.7 - 5.3 mmol/L [facility] Sodium [Moles/Vol] 137 mmol/L 135 - 144 mmol/L [facility] Urea nitrogen (BldV) [Mass/Vol] 16 mg/dL 6 - 20 mg/dL [facility] Cult,Urineon 05-07-2022 Cult,Urine Specimen Description .CLEAN CATCH URINE Culture NO GROWTH Report Status FINAL 05/07/2022 Normal [facility] Comment on above: Performed By: #### B C #### [facility] [address] [place], [place] [id number] Substance Addiction Coordinator: Joelle Parker MD MRI ANKLE LEFT WO CONTRASTon 05-07-2022 Radiology Study observation (narrative) [facility] Work Phone: C-Reactive Proteinon 022 CRP [Mass/Vol] 36.1 mg/L High 0.0 - 5.0 mg/L [facility] Interpretation and review of laboratory results Abnormal [facility] Microscopic Urinalysison - [facility] Bacteria, UA TRACE Abnormal None [facility] Epithelial Cells UA None [facility] Interpretation and review of laboratory results Abnormal [facility] Mucus, UA TRACE Abnormal None [facility] RBC, UA 0 TO 2 [facility] WBC, UA 0 TO [address] [facility] Sedimentation Rateon 022 Interpretation and review of laboratory results Abnormal [facility] Sed Rate [address] [facility] Urinalysison 05-06-2022 Bilirubin Urine Negative NEGATIVE [facility] Color, UA Yellow Yellow [facility] Glucose, Ur Negative NEGATIVE [facility] Interpretation and review of laboratory results Abnormal [facility] Ketones Ql (U) Negative NEGATIVE [facility] Leukocyte esterase Test strip Ql (U) Negative NEGATIVE [facility] Nitrite, Urine Negative NEGATIVE [facility] pH, UA 6.5 [facility] Protein, UA Negative NEGATIVE [facility] Specific [place], UA <1.005 Low [facility] Turbidity UA Clear Clear [facility] Urine Hgb TRACE Abnormal NEGATIVE [facility] Urobilinogen, Urine Normal Normal [facility] Urinalysis, Routineon 2021 Bilirubin, SemiQt,Ur Negative Normal NEG [facility] Comment on above: Performed By: #### B C #### [facility] [address] [place] [address] Dr. [place] [id number] Substance Addiction Coordinator: Joelle Parker MD Blood, Urine TRACE Abnormal NEG [facility] Comment on above: Performed By: #### B C #### [facility] [address] [place] [address] Dr. [place] [phone] Substance Addiction Coordinator: Joelle Parker MD Clarity (U) Clear Normal CLEAR [facility] Comment on above: Performed By: #### B C #### [facility] [address] [place] [address] [place] [address] Substance Addiction Coordinator: Joelle Parker MD Color (U) Yellow Normal YEL [facility] Comment on above: Performed By: #### B C #### [facility] [address] [place] [address] Dr. [place], [place] [phone] Substance Addiction Coordinator: Joelle Parker MD Glucose Ql (U) Negative Normal NEG [facility] Comment on above: Performed By: #### B C #### [facility] [address] [place] [address] Dr. [place], [place] [phone] Substance Addiction Coordinator: Joelle Parker MD Ketones Ql (U) Negative Normal NEG [facility] Comment on above: Performed By: #### B C #### [facility] [address] [place] [address] Dr. [place], [place] [phone] Substance Addiction Coordinator: Joelle Parker MD Leukocyte esterase Test strip Ql (U) Negative Normal NEG [facility] Comment on above: Performed By: #### B C #### [facility] [address] [place] [address] [place] [address] Substance Addiction Coordinator: Joelle Parker MD Nitrite,Ur Negative Normal NEG [facility] Comment on above: Performed By: #### B C #### [facility] [address] [place] [address] [place] [address] Substance Addiction Coordinator: Joelle Parker MD PH,Ur 6.5 Normal 5.0-9.0 [facility] Comment on above: Performed By: #### B C #### [facility] [address] [place] [address] Dr. [place], [place] [phone] Substance Addiction Coordinator: Joelle Parker MD Protein Ql (U) Negative Normal NEG [facility] Comment on above: Performed By: #### B C #### [facility] [address] [place] [address] Dr. [place], [place] [phone] Substance Addiction Coordinator: Joelle Parker MD Spec. [place],Ur <1.005 Low 1.010-1.020 [facility] Comment on above: Performed By: #### B C #### [facility] [address] [place] [address] Dr. [place], [place] 1905483 Substance Addiction Coordinator: Joelle Parker MD Urobilinogen,Ur Normal Normal NORM [facility] Comment on above: Performed By: #### B C #### [facility] [address] [place], [place] [phone] Substance Addiction Coordinator: Joelle Parker MD Urinalysis,Microon 2 ----- Normal [facility] Comment on above: Performed By: #### B C #### [facility] [address] [place], [place] [phone] Substance Addiction Coordinator: Joelle Parker MD Bacteria TRACE Abnormal NONE [facility] Comment on above: Performed By: #### B C #### [facility] [address] [place], [place] [phone] Substance Addiction Coordinator: Joelle Parker MD Epithelial cells LM Ql (Urine sed) None Normal [address] Comment on above: Performed By: #### B C #### [facility] [address] [place], [place] [phone] Substance Addiction Coordinator: Joelle Parker MD Mucus Strands TRACE Abnormal NONE [facility] Comment on above: Performed By: #### B C #### [facility] [address] [place], [place] [phone] Substance Addiction Coordinator: Joelle Parker MD Urine RBC's 0 TO 2 Normal 0-2 [facility] Comment on above: Performed By: #### B C #### [facility] [address] [place], [place] [phone] Substance Addiction Coordinator: Joelle Parker MD Urine WBC's 0 TO [address] Comment on above: Performed By: #### B C #### [facility] [address] [place] [address] Substance Addiction Coordinator: Joelle Parker MD CBC with Auto Differentialon 05-05-2022 Absolute Eos # 0.03 [facility] Absolute Immature Granulocyte 0.06 [facility] Absolute Lymph # 0.87 Low [facility] Absolute Kings # 0.69 [facility] Basophils (Bld) [#/Vol] 0.04 10*3/uL [facility] Basophils/100 WBC (Bld) 0 % 0 - 2 % [facility] Eosinophils/100 WBC (Bld) 0 % Low 1 - 4 % [facility] Hematocrit (Bld) [Volume fraction] 33.7 % Low 40.7 - 50.3 % [facility] Hemoglobin (Bld) [Mass/Vol] 10.6 g/dL Low 13.0 - 17.0 g/dL [facility] Immature granulocytes/100 WBC (Bld) 0 % 0 [facility] Interpretation and review of laboratory results Abnormal [facility] Lymphocytes/100 WBC (Bld) 7 % Low 24 - 43 % [facility] MCH (RBC) [Entitic mass] 26.0 pg 25. 2 - 33.5 pg [facility] MCHC (RBC) [Mass/Vol] 31.5 g/dL 28.4 - 34.8 g/dL [facility] MCV (RBC) [Entitic vol] 82.8 fL 82.6 - 102.9 fL [facility] Monocytes/100 WBC (Bld) 5 % 3 - 12 % [facility] NRBC Automated 0.0 0.0 per 100 WBC [facility] Platelet distribution width (Bld) [Ratio] 15.7 % High 11.8 - 14.4 % [facility] Platelet mean volume (Bld) [Entitic vol] 8.9 fL 8.1 - 13.5 fL [facility] Platelets (Bld) [#/Vol] 196 10*3/uL [facility] RBC (Bld) [#/Vol] 4.07 10*6/uL Low 4.21 - 5.7 7 m/uL [facility] Segmented neutrophils/100 WBC (Bld) 88 % High 36 - 65 % [facility] Segs Absolute 11.77 High [facility] WBC (Bld) [#/Vol] 13.5 10*3/uL High [facility] CBC with Diffon 05-05-2022 Abs. Basophil 0.04 k/uL Normal 0.00-0.20 [facility] Comment on above: Performed By: #### C DP, CMPX #### [facility] [address] [place] [address] Substance Addiction Coordinator: Joelle Parker MD Abs.Imm.Granulocyte 0.06 k/uL Normal 0.00-0.30 [facility] Comment on above: Performed By: #### C DP, CMPX #### [facility] [address] [place] [address] Substance Addiction Coordinator: Joelle Parker MD Abs.Neutrophil (Seg) 11.77 k/uL High 1.50-8.10 [facility] Comment on above: Performed By: #### C DP, CMPX #### [facility] [address] [place] [address] Substance Addiction Coordinator: Joelle Parker MD Basophils/100 WBC (Bld) 0 % Normal 0-2 [facility] Comment on above: Performed By: #### C DP, CMPX #### [facility] [address] [place] [address] Substance Addiction Coordinator: Joelle Parker MD Eosinophils (Bld) [#/Vol] 0.03 10*3/uL Normal 0.00-0.44 [facility] Comment on above: Performed By: #### C DP, CMPX #### [facility] [address] [place], [place] [phone] Substance Addiction Coordinator: Joelle Parker MD Eosinophils/100 WBC (Bld) 0 % Low 1-4 [facility] Comment on above: Performed By: #### C DP, CMPX #### [facility] [address] [place], [place] [phone] Substance Addiction Coordinator: Joelle Parker MD Erythrocyte distribution width (RBC) [Ratio] 15.7 % High 11.8-14.4 [facility] Comment on above: Performed By: #### C DP, CMPX #### [address] [place] [address] Substance Addiction Coordinator: Joelle Parker MD Hematocrit (Bld) [Volume fraction] 33.7 % Low 40.7-50.3 [facility] Comment on above: Performed By: #### C DP, CMPX #### [address] [place] [phone] Substance Addiction Coordinator: Joelle Parker MD Hemoglobin (Bld) [Mass/Vol] 10.6 g/dL Low 13.0-17.0 [facility] Comment on above: Performed By: #### C DP, CMPX #### [address] [place], [place] [address] Substance Addiction Coordinator: Joelle Parker MD Immature granulocytes/100 WBC (Bld) 0 % Normal 0 [facility] Comment on above: Performed By: #### C DP, CMPX #### [address] [place], [id number] Substance Addiction Coordinator: Joelle Parker MD Lymphocytes (Bld) [#/Vol] 0.87 10*3/uL Low 1.10-3.70 [facility] Comment on above: Performed By: #### C DP, CMPX #### [address] [place], [place] 2226083 Substance Addiction Coordinator: Joelle Parker MD Lymphocytes/100 WBC (Bld) 7 % Low 24-43 [facility] Comment on above: Performed By: #### C DP, CMPX #### [address] [place], [place] [phone] Substance Addiction Coordinator: Joelle Parker MD MCH (RBC) [Entitic mass] 26.0 pg Normal 25.2-33.5 [facility] Comment on above: Performed By: #### C DP, CMPX #### [facility] [address] [place], [place] [phone] Substance Addiction Coordinator: Joelle Parker MD MCHC (RBC) [Mass/Vol] 31.5 g/dL Normal 28.4-34.8 [facility] Comment on above: Performed By: #### C DP, CMPX #### [facility] [address] [place], [place] [phone] Substance Addiction Coordinator: Joelle Parker MD MCV (RBC) [Entitic vol] 82.8 fL Normal 82.6-102.9 [facility] Comment on above: Performed By: #### C DP, CMPX #### [address] [place] [id number] Substance Addiction Coordinator: Joelle Parker MD Monocytes (Bld) [#/Vol] 0.69 10*3/uL Normal 0.10-1.20 [facility] Comment on above: Performed By: #### C DP, CMPX #### [address] [place], [place] [phone] Substance Addiction Coordinator: Joelle Parker MD Monocytes/100 WBC (Bld) 5 % Normal 3-12 [facility] Comment on above: Performed By: #### C DP, CMPX #### [address] [place], [place] [id number] Substance Addiction Coordinator: Joelle Parker MD Neutrophil (Seg) 88 % High 36-65 [facility] Comment on above: Performed By: #### C DP, CMPX #### [address] [place] [address] Substance Addiction Coordinator: Joelle Parker MD NRBC Automated 0.0 per 100 WBC Normal 0.0 [facility] Comment on above: Performed By: #### C DP, CMPX #### [facility] [address] [place], [place] [id number] Substance Addiction Coordinator: Joelle Parker MD Platelet mean volume (Bld) [Entitic vol] 8.9 fL Normal 8.1-13.5 [facility] Comment on above: Performed By: #### C DP, CMPX #### [facility] [address] [place], [place] [id number] Substance Addiction Coordinator: Joelle Parker MD Platelets (Bld) [#/Vol] 196 10*3/uL Normal 138-453 [facility] Comment on above: Performed By: #### C DP, CMPX #### [facility] [address] [place] [address] Substance Addiction Coordinator: Joelle Parker MD RBC (Bld) [#/Vol] 4.07 10*6/uL Low 4.21-5.77 [facility] Comment on above: Performed By: #### C DP, CMPX #### [facility] [address] [place], [place] [id number] Substance Addiction Coordinator: Joelle Parker MD WBC (Bld) [#/Vol] 13.5 10*3/uL High 3.5-11.3 [facility] Comment on above: Performed By: #### C DP, CMPX #### [address] [place], [facility] Substance Addiction Coordinator: Joelle Parker MD CT ANKLE LEFT W CONTRASTon 0 05-05-2022 CT ANKLE LEFT W CONTRAST EXAMINATION: CT OF THE LEFT ANKLE WITH CONTRAST 05/05/2022 8:48 pm TECHNIQUE: CT of the left ankle was performed with the administration of intravenous contrast. Multiplanar reformatted images are provided for review. Automated exposure control, iterative reconstruction, and/or weight based adjustment of the mA/kV was utilized to reduce the radiation dose to as low as reasonably achievable. COMPARISON: MRI left ankle 01/23/2022. Left calcaneus radiographs 01/21/2022. HISTORY ORDERING SYSTEM PROVIDED HISTORY: previous fluid collection along achilles tendon and h/o calcaneus osteo. IVDU TECHNOLOGIST PROVIDED HISTORY: previous fluid collection along achilles tendon and h/o calcaneus osteo. IVDU Decision Support Exception - unselect if not a suspected or confirmed emergency medical condition->Emergency Medical Condition (MA) FINDINGS: Bones: Chronic erosive changes along the posterosuperior aspect of the calcaneus. Superimposed acute erosions not excluded. No fracture or dislocation. No suspicious lytic or blastic osseous lesion. Soft Tissue: Distal Achilles tendon thickening and likely partial tear. Questionable fluid in the retrocalcaneal bursa. Adjacent stranding in the subcutaneous fat and Hoffa's fat pad. No soft tissue gas. Joint: No syndesmotic widening. The ankle mortise is intact. The tibial plafond and talar dome are normal in appearance. A large os trigonum is seen with mild degenerative changes at its synchondrosis. The subtalar joint is normal in appearance. The talonavicular and calcaneocuboid joints are unremarkable. The visualized aspects of the midfoot are unremarkable. IMPRESSION: Chronic erosive changes of the posterosuperior aspect of the calcaneus at the Achilles tendon insertion with superimposed acute erosions not excluded. 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 These findings may be sterile although septic bursitis and osteomyelitis cannot be excluded. No soft tissue gas. Interpreted by: Erasmo Domínguez MD Signed by: Erasmo Domínguez MD 05/05/22 Final result Normal [facility] Chronic erosive changes of the posterosuperior aspect of the calcaneus at the Achilles tendon insertion with superimposed acute erosions not excluded. 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 These findings may be sterile although septic bursitis and osteomyelitis cannot be excluded. No soft tissue gas. [facility] CONSOLIDATED EXAMINATION: CT OF THE LEFT ANKLE WITH CONTRAST 05/05/2022 8:48 pm TECHNIQUE: CT of the left ankle was performed with the administration of intravenous contrast. Multiplanar reformatted images are provided for review. Automated exposure control, iterative reconstruction, and/or weight based adjustment of the mA/kV was utilized to reduce the radiation dose to as low as reasonably achievable. COMPARISON: MRI left ankle 01/23/2022. Left calcaneus radiographs 01/21/2022. HISTORY ORDERING SYSTEM PROVIDED HISTORY: previous fluid collection along achilles tendon and h/o calcaneus osteo. IVDU TECHNOLOGIST PROVIDED HISTORY: previous fluid collection along achilles tendon and h/o calcaneus osteo. IVDU Decision Support Exception - unselect if not a suspected or confirmed emergency medical condition->Emergency Medical Condition (MA) FINDINGS: Bones: Chronic erosive changes along the posterosuperior aspect of the calcaneus. Superimposed acute erosions not excluded. No fracture or dislocation. No suspicious lytic or blastic osseous lesion. Soft Tissue: Distal Achilles tendon thickening and likely partial tear. Questionable fluid in the retrocalcaneal bursa. Adjacent stranding in the subcutaneous fat and Hoffa's fat pad. No soft tissue gas. Joint: No syndesmotic widening. The ankle mortise is intact. The tibial plafond and talar dome are normal in appearance. A large os trigonum is seen with mild degenerative changes at its synchondrosis. The subtalar joint is normal in appearance. The talonavicular and calcaneocuboid joints are unremarkable. The visualized aspects of the midfoot are unremarkable. [facility] Erasmo Wiseman MD - 05/05/2022 EXAMINATION: CT OF THE LEFT ANKLE WITH CONTRAST 05/05/2022 8:48 pm TECHNIQUE: CT of the left ankle was performed with the administration of intravenous contrast. Multiplanar reformatted images are provided for review. Automated exposure control, iterative reconstruction, and/or weight based adjustment of the mA/kV was utilized to reduce the radiation dose to as low as reasonably achievable. COMPARISON: MRI left ankle 01/23/2022. Left calcaneus radiographs 01/21/2022. HISTORY ORDERING SYSTEM PROVIDED HISTORY: previous fluid collection along achilles tendon and h/o calcaneus osteo. IVDU TECHNOLOGIST PROVIDED HISTORY: previous fluid collection along achilles tendon and h/o calcaneus osteo. IVDU Decision Support Exception - unselect if not a suspected or confirmed emergency medical condition->Emergency Medical Condition (MA) FINDINGS: Bones: Chronic erosive changes along the posterosuperior aspect of the calcaneus. Superimposed acute erosions not excluded. No fracture or dislocation. No suspicious lytic or blastic osseous lesion. Soft Tissue: Distal Achilles tendon thickening and likely partial tear. Questionable fluid in the retrocalcaneal bursa. Adjacent stranding in the subcutaneous fat and Hoffa's fat pad. No soft tissue gas. Joint: No syndesmotic widening. The ankle mortise is intact. The tibial plafond and talar dome are normal in appearance. A large os trigonum is seen with mild degenerative changes at its synchondrosis. The subtalar joint is normal in appearance. The talonavicular and calcaneocuboid joints are unremarkable. The visualized aspects of the midfoot are unremarkable. IMPRESSION: Chronic erosive changes of the posterosuperior aspect of the calcaneus at the Achilles tendon insertion with superimposed acute erosions not excluded. 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 These findings may be sterile although septic bursitis and osteomyelitis cannot be excluded. No soft tissue gas. [employer] Phone: Radiology Study observation (narrative) [facility] [employer] Phone: CT ANKLE LEFT W CONTRASTOrde red By: Erasmo Domínguez on 05-05-2022 [facility] Phone: Comp Metabolic Pr/rfx MGon 0 05-05-2022 (cont.) Normal [facility] Comment on above: Result Comment: Aver age GFR for 40-49 years old: 99 mL/min/1.73sq m Chronic Kidney Disease: <60 mL/min/1.73sq m Kidney failure: <15 mL/min/1.73sq m eGFR calculated using average adult body mass. Additional eGFR calculator available at: http://www.[employer]/multiple_crcl_2011.htm Performed By: #### C NICHOLAS CMPX #### [facility] [address] [place] [address] Substance Addiction Coordinator: Joelle Parker MD Albumin/Glob Ratio 0.8 Low 1.0-2.5 [facility] Comment on above: Performed By: #### C NICHOLAS CMPX #### [facility] [address] [place], [place] [id number] Substance Addiction Coordinator: Joelle Parker MD Alkaline Phos 82 U/L Normal 40-129 [facility] Comment on above: Performed By: #### C DP, CMPX #### [facility] [address] [place], [place] [id number] Substance Addiction Coordinator: Joelle Parker MD BUN/CRE Ratio 10 Normal 9-20 [facility] Comment on above: Performed By: #### C DP, CMPX #### [facility] [address] [place], [place] [id number] Substance Addiction Coordinator: Joelle Parker MD GFR, Amer >60 Normal >60 [facility] Comment on above: Performed By: #### C DP, CMPX #### [facility] [address] [place], [place] [id number] Substance Addiction Coordinator: Joelle Parker MD GFR,non Amer >60 Normal >60 [facility] Comment on above: Performed By: #### C DP, CMPX #### [facility] [address] [place], [place] [id number] Substance Addiction Coordinator: Joelle Parker MD Protein [Mass/Vol] 7.9 g/dL Normal 6.4-8.3 [facility] Comment on above: Performed By: #### C DP, CMPX #### [facility] [address] [place], [place] [id number] Substance Addiction Coordinator: Joelle Parker MD Staging: Normal [facility] Comment on above: Result Comment: Stag e 1: Some kidney damage normal GFR Stage 2: Mild kidney damage GFR 60-89 Stage 3: Moderate kidney damage GFR 30-59 Stage 4: Severe kidney damage GFR 15-29 Stage 5: Severe kidney damage GFR <15 ESRD - chronic treatment by dialysis or transplant Performed By: #### C DP, CMPX #### [facility] [address] [place], [place] [id number] Substance Addiction Coordinator: Joelle Parker MD Urea nitrogen [Mass/Vol] 7 mg/dL Normal 6-20 [facility] Comment on above: Performed By: #### C DP, CMPX #### [facility] [address] [place] [address] Substance Addiction Coordinator: Joelle Parker MD Albumin [Mass/Vol] 3.4 g/dL Low 3.5-5.2 [facility] Comment on above: Performed By: #### C DP, CMPX #### [facility] [address] [place] [address] Dr[address] [place], [place] [id number] Substance Addiction Coordinator: Joelle Parker MD ALT [Catalytic activity/Vol] 17 U/L Normal 5-41 [facility] Comment on above: Performed By: #### C DP, CMPX #### [address] [place] [address] Substance Addiction Coordinator: Joelle Parker MD Anion gap [Moles/Vol] 9 mmol/L Normal 9-17 [facility] Comment on above: Performed By: #### C DP, CMPX #### [address] [place] [address] Substance Addiction Coordinator: Joelle Parker MD AST [Catalytic activity/Vol] 15 U/L Normal <40 [facility] Comment on above: Performed By: #### C DP, CMPX #### [address] [place] [address] Substance Addiction Coordinator: Joelle Parker MD Bilirubin [Mass/Vol] 0.53 mg/dL Normal 0.3-1.2 [facility] Comment on above: Performed By: #### C DP, CMPX #### [address] [place] [address] Substance Addiction Coordinator: Joelle Parker MD Calcium [Mass/Vol] 9.1 mg/dL Normal 8.6-10.4 [facility] Comment on above: Performed By: #### C DP, CMPX #### [facility] [address] [place] [address] Substance Addiction Coordinator: Joelle Parker MD Chloride [Moles/Vol] 100 mmol/L Normal 98-107 [facility] Comment on above: Performed By: #### C DP, CMPX #### [address] [place] [address] Substance Addiction Coordinator: Joelle Parker MD CO2 [Moles/Vol] 25 mmol/L Normal 20-31 [facility] Comment on above: Performed By: #### C DP, CMPX #### [address] [place] [address] Substance Addiction Coordinator: Joelle Parker MD Creatinine [Mass/Vol] 0.72 mg/dL Normal 0.70-1.20 [facility] Comment on above: Performed By: #### C DP, CMPX #### [address] [place], [place] [id number] Substance Addiction Coordinator: Joelle Parker MD Glucose [Mass/Vol] 111 mg/dL High 70-99 [facility] Comment on above: Performed By: #### C DP, CMPX #### [address] [place] [address] Substance Addiction Coordinator: Joelle Parker MD Potassium [Moles/Vol] 3.6 mmol/L Low 3.7-5.3 [facility] Comment on above: Performed By: #### C DP, CMPX #### [address] [place] [address] Substance Addiction Coordinator: Joelle Parker MD Sodium [Moles/Vol] 134 mmol/L Low 135-144 [facility] Comment on above: Performed By: #### C DP, CMPX #### [address] [place] [address] Substance Addiction Coordinator: Joelle Parker MD Comprehensive Metabolic Pane l w/ Reflex to MGon 05-05-2022 Albumin/Globulin [Mass ratio] 0.8 {ratio} Low [facility] ALP (Bld) [Catalytic activity/Vol] 82 U/L 40 - 129 U/L [facility] Free PSA/Total PSA [Mass fraction] 7.9 g/dL 6.4 - 8.3 g/dL [facility] GFR >60 >60 mL/min [facility] GFR Non- >60 >60 mL/min [facility] Interpretation and review of laboratory results Abnormal [facility] Urea nitrogen (BldV) [Mass/Vol] 7 mg/dL 6 - 20 mg/dL [facility] Urea nitrogen/Creatinine (Bld) [Mass ratio] [address] [facility] Laboratory - Chemistry and C hemistry - challengeon 05-05-2022 GFR/1.73 sq M.predicted MDRD (S/P/Bld) [Vol rate/Area] [facility] Comment on above: Average GFR for 40-4 9 years old: 99 mL/min/1.73sq m Chronic Kidney Disease: <60 mL/min/1.73sq m Kidney failure: <15 mL/min/1.73sq m eGFR calculated using average adult body mass. Additional eGFR calculator available at: http://www.[employer]/multiple_crcl_2012.htm Stage 1: Some kidney damage normal GFR Stage 2: Mild kidney damage GFR 60-89 Stage 3: Moderate kidney damage GFR 30-59 Stage 4: Severe kidney damage GFR 15-29 Stage 5: Severe kidney damage GFR <15 ESRD - chronic treatment by dialysis or transplant Lactate, Sepsison 05-05-2022 Lactic Acid, Sepsis 1.3 mmol/L Normal 0.5-1.9 [facility] Comment on above: Performed By: #### L ACDS #### [facility] [address] [place] [address] Substance Addiction Coordinator: Joelle Parker MD Lactic Acid, Sepsis 1.3 mmol/L 0.5 - 1. 9 mmol/L [facility] CT CHEST WO CONTRASTon 02-14 New 1 cm nodule note d in the left upper lobe. New 2.3 cm nodule noted in the right middle lobe. These may represent recurrent septic emboli. Some residual scarring noted in the left apex, left upper lobe, and left lung base. The findings were sent to the Radiology Results Communication Center at 2:39 pm on 02/14/2022to be communicated to a licensed caregiver. [facility] EXAMINATION: CT OF THE CHEST WITHOUT CONTRAST 02/14/2022 2:23 pm TECHNIQUE: CT of the chest was performed without the administration of intravenous contrast. Multiplanar reformatted images are provided for review. Dose modulation, iterative reconstruction, and/or weight based adjustment of the mA/kV was utilized to reduce the radiation dose to as low as reasonably achievable. COMPARISON: 01/20/2022 HISTORY: ORDERING SYSTEM PROVIDED HISTORY: Septic embolism (HCC) TECHNOLOGIST PROVIDED HISTORY: follow resolution of thep emboli pls Reason for Exam: follow up to septic states FINDINGS: Mediastinum: Heart and mediastinal structures are unremarkable. Lungs/pleura: There are new nodular densities noted. There is a small nodule in the left upper lobe on series 4, image 40, measuring approximately 1 cm. There is a new nodular density noted in the right mid lobe, measuring 2.3 cm. There is a scar noted in the the left apex, in the location of prior septic embolus. Minimal residual scar is noted in the left upper lobe, series 4, image 44. Also noted is some scarring in the left lung base. Upper Abdomen: Unremarkable Soft Tissues/Bones: Unremarkable [facility] Hank Red MD - 02/14/2022 EXAMINATION: CT OF THE CHEST WITHOUT CONTRAST 02/14/2022 2:23 pm TECHNIQUE: CT of the chest was performed without the administration of intravenous contrast. Multiplanar reformatted images are provided for review. Dose modulation, iterative reconstruction, and/or weight based adjustment of the mA/kV was utilized to reduce the radiation dose to as low as reasonably achievable. COMPARISON: 01/20/2022 HISTORY: ORDERING SYSTEM PROVIDED HISTORY: Septic embolism (HCC) TECHNOLOGIST PROVIDED HISTORY: follow resolution of thep emboli pls Reason for Exam: follow up to septic states FINDINGS: Mediastinum: Heart and mediastinal structures are unremarkable. Lungs/pleura: There are new nodular densities noted. There is a small nodule in the left upper lobe on series 4, image 40, measuring approximately 1 cm. There is a new nodular density noted in the right mid lobe, measuring 2.3 cm. There is a scar noted in the the left apex, in the location of prior septic embolus. Minimal residual scar is noted in the left upper lobe, series 4, image 44. Also noted is some scarring in the left lung base. Upper Abdomen: Unremarkable Soft Tissues/Bones: Unremarkable IMPRESSION: New 1 cm nodule noted in the left upper lobe. New 2.3 cm nodule noted in the right middle lobe. These may represent recurrent septic emboli. Some residual scarring noted in the left apex, left upper lobe, and left lung base. The findings were sent to the Radiology Results Communication Center at 2:39 pm on 02/14/2022to be communicated to a licensed caregiver. [employer] Work Phone: Radiology Study observation (narrative) [facility] [facility] Work Phone: CT CHEST WO CONTRASTOrdered By: Hank Red on 02-14-2022 [employer] Work Phone: ECHO Complete 2D W Doppler W Coloron 02-14-2022 [facility] Transthoracic Echocardiography Report (TTE) Patient Name COTY Date of Study 02/14/2022 TIP Plata Date of 1980 Gender Male Age 42 year(s) Race Room Number Height: 72 inch, 182.88 cm Corporate ID [id number] Weight: 174 pounds, 78.9 kg # Patient Acct [id number] BSA: 2.01 m^2 BMI: 23.6 kg/m^2 # MR # [id number] Toll Line Repairer Elva Dejesus Interpreting Physician Alec Cheung Fellow Referring Nurse Practitioner Interpreting Referring Physician Tip Parker, Fellow [employer] Type of Study TTE procedure:2D Echocardiogram, M-Mode, Doppler, Color Doppler. Procedure Date Date: 02/14/2022 Start: 01:14 PM Study Location: [facility] Technical Quality: Fair visualization Indications:Endocardi tis, Bacteremia and Rule out vegetation. History / Tech. Comments: Procedure explained to patient. History of heroin use, endocarditis, MRSA bacteremia, tricuspid valve vegetation previously measured 1.1 cm on 01/24/2022 Patient Status: Outpatient Height: 72 inches Weight: 174 pounds BSA: 2.01 m^2 BMI: 23.6 kg/m^2 Rhythm: Within normal limits HR: 95 bpm BP: 142/94 mmHg Allergies - Penicillin. - *Unlisted:(vanco). CONCLUSIONS Summary Normal LV size and wall thickness. No obvious wall motion abnormality seen. Normal LV systolic function with LVEF >55%. Normal RV size and function. RV systolic pressure 27 mmHg LA and RA appears normal in size. AV, MV structure appears normal Echogenic structure structure seen anterior tricuspid leaflet 1.17x 0.89 cm Normal aortic root dimension. No significant pericardial effusion noted. No obvious intra-cardiac mass or shunt noted. IVC normal diameter and inspiratory variation indicating normal RA filling pressure. If clinically indicated GIANFRANCO is recommended Signature FINDINGS Left Atrium Left atrium is normal in size. Inter-atrial septum is intact with no evidence for an atrial septal defect by color doppler. Left Ventricle Normal left ventricle size, posterior wall thickness is mildly increased, and normal left ventricular systolic function with an estimated EF 55-60%. No obvious segmental wall motion abnormalities seen. Right Atrium Right atrium is normal in size. Right Ventricle Normal right ventricular size and function. Mitral Valve Normal mitral valve structure and function. Trivial mitral regurgitation. No mitral stenosis. No obvious vegetation seen on the mitral valve leaflets. Aortic Valve The aortic valve is not well visualized and opens well. No aortic insufficiency. No aortic stenosis. No obvious vegetation seen on the aortic valve leaflets. Tricuspid Valve Normal tricuspid valve structure. Mild tricuspid regurgitation. No tricuspid stenosis. No pulmonary hypertension with an estimated right ventricular systolic pressure of 27.85 mmHg. Vegetation still present on the anterior tricuspid valve leaflet measuring 1.17 cm X 0.893 cm. Pulmonic Valve The pulmonic valve is normal in structure. Trivial pulmonic insufficiency. No evidence of pulmonic stenosis. No obvious pulmonic valve vegetation seen. Pericardial Effusion No significant pericardial effusion is seen. Pleural Effusion No pleural effusion seen. Miscellaneous Normal aortic root dimension. IVC normal diameter & inspiratory collapse indicating normal RA filling pressure. Unable to calculate E/E' average. M-mode / 2D Measurements & Calculations: LVIDd:4.8 cm(3.7 - 5.6 cm) Diastolic Volume:118 ml LVIDs:3.5 cm(2.2 - 4.0 cm) Systolic Volume:42.9 ml IVSd:1 cm(0.6 - 1.1 cm) Aortic Root:3.4 cm(2.0 - 3.7 cm) LVPWd:1.3 cm(0.6 - 1.1 cm) LA Dimension: 3.6 cm(1.9 - 4.0 cm) Fractional Shortenin.08 % LA volume/Index: 53.6 ml /27m^2 Calculated LVEF (%): 63.64 % LVOT:2.3 cm Mitral: Aortic Valve Area (P1/2-Time): 4.23 cm^2 Peak Velocity: 1.36 m/s Peak E-Wave: 0.69 m/s Mean Velocity: 0.91 m/s Peak A-Wave: 0.77 m/s Peak Gradient: 7.4 mmHg (more content not included)... MHPN STV CPACS Alec Cheung MD - 02/14/2022 [facility] Transthoracic Echocardiography Report (TTE) Patient Name COTY Date of Study 02/14/2022 TIP Plata Date of 1980 Gender Male Age 42 year(s) Race Room Number Height: 72 inch, 182.88 cm Corporate ID [id number] Weight: 174 pounds, 78.9 kg # Patient Acct [id number] BSA: 2.01 m^2 BMI: 23.6 kg/m^2 # MR # [id number] Toll Line Repairer Elva Dejesus Interpreting Physician Alec Cheung Fellow Referring Nurse Practitioner Interpreting Referring Physician Tip Parker, Fellow MIAN-LUCIANO Type of Study TTE procedure:2D Echocardiogram, M-Mode, Doppler, Color Doppler. Procedure Date Date: 02/14/2022 Start: 01:14 PM Study Location: [facility] Technical Quality: Fair visualization Indications:Endocardi tis, Bacteremia and Rule out vegetation. History / Tech. Comments: Procedure explained to patient. History of heroin use, endocarditis, MRSA bacteremia, tricuspid valve vegetation previously measured 1.1 cm on 01/24/2022 Patient Status: Outpatient Height: 72 inches Weight: 174 pounds BSA: 2.01 m^2 BMI: 23.6 kg/m^2 Rhythm: Within normal limits HR: 95 bpm BP: 142/94 mmHg Allergies - Penicillin. - *Unlisted:(vanco). CONCLUSIONS Summary Normal LV size and wall thickness. No obvious wall motion abnormality seen. Normal LV systolic function with LVEF >55%. Normal RV size and function. RV systolic pressure 27 mmHg LA and RA appears normal in size. AV, MV structure appears normal Echogenic structure structure seen anterior tricuspid leaflet 1.17x 0.89 cm Normal aortic root dimension. No significant pericardial effusion noted. No obvious intra-cardiac mass or shunt noted. IVC normal diameter and inspiratory variation indicating normal RA filling pressure. If clinically indicated GIANFRANCO is recommended Signature - - - - FINDINGS Left Atrium Left atrium is normal in size. Inter-atrial septum is intact with no evidence for an atrial septal defect by color doppler. Left Ventricle Normal left ventricle size, posterior wall thickness is mildly increased, and normal left ventricular systolic function with an estimated EF 55-60%. No obvious segmental wall motion abnormalities seen. Right Atrium Right atrium is normal in size. Right Ventricle Normal right ventricular size and function. Mitral Valve Normal mitral valve structure and function. Trivial mitral regurgitation. No mitral stenosis. No obvious vegetation seen on the mitral valve leaflets. Aortic Valve The aortic valve is not well visualized and opens well. No aortic insufficiency. No aortic stenosis. No obvious vegetation seen on the aortic valve leaflets. Tricuspid Valve Normal tricuspid valve structure. Mild tricuspid regurgitation. No tricuspid stenosis. No pulmonary hypertension with an estimated right ventricular systolic pressure of 27.85 mmHg. Vegetation still present on the anterior tricuspid valve leaflet measuring 1.17 cm X 0.893 cm. Pulmonic Valve The pulmonic valve is normal in structure. Trivial pulmonic insufficiency. No evidence of pulmonic stenosis. No obvious pulmonic valve vegetation seen. Pericardial Effusion No significant pericardial effusion is seen. Pleural Effusion No pleural effusion seen. Miscellaneous Normal aortic root dimension. IVC normal diameter & inspiratory collapse indicating normal RA filling pressure. Unable to calculate E/E' average. M-mode / 2D Measurements & Calculations: LVIDd:4.8 cm(3.7 - 5.6 cm) Diastolic Volume:118 ml LVIDs:3.5 cm(2.2 - 4.0 cm) Systolic Volume:42.9 ml IVSd:1 cm(0.6 - 1.1 cm) Aortic Root:3.4 cm(2.0 - 3.7 cm) LVPWd:1.3 cm(0.6 - 1.1 cm) LA Dimension: 3.6 cm(1.9 - 4.0 cm) Fractional Shortenin.08 % LA volume/Index: 53.6 ml /27m^2 Calculated LVEF (%): 63.64 % LVOT:2.3 cm Mitral: Aortic Valve Area (P1/2-Time): 4.23 cm^2 Peak Velocity: 1.36 m/s Peak E-Wave: 0.69 m/s Mean Velocity: 0.91 m/s Peak A-Wave: 0.77 m/s Peak Gradient: 7.4 mmHg E/A Ratio: 0.91 Mean Gradient: 4 mmHg Peak Gradient: 1.93 mmHg Deceleration Time: 177 msec P1/2t: 52 msec Area (continuity): 3.73 cm^2 AV VTI: 25.6 cm Tricuspid: Pulmonic: Peak TR Velocity: 2.39 m/s Peak Velocity: 0.95 m/s Peak TR Gradient: 22.8484 mmHg Peak Gradient: 3.57 mmHg Es (more content not included)... [employer] Work Phone: ECHO Complete 2D W Doppler W ColorOrdered By: Alec Cheung on 02-14-2022 [employer] Work Phone: Basic Metabolic Panel w/ Ref rebecca to MGon 01-30-2022 Anion gap [Moles/Vol] 8 mmol/L Low 9 - 17 mmol/L [employer] Calcium [Mass/Vol] 7.8 mg/dL Low 8.6 - 10. 4 mg/dL [employer] Chloride [Moles/Vol] 103 mmol/L 98 - 10 7 mmol/L [employer] CO2 [Moles/Vol] 23 mmol/L 20 - 31 mmol/L [employer] Creatinine [Mass/Vol] 0.88 mg/dL 0.70 - 1.20 mg/dL [employer] GFR >60 >60 mL/min [employer] GFR Non- >60 >60 mL/min [employer] GFR/1.73 sq M.predicted MDRD (S/P/Bld) [Vol rate/Area] [employer] Comment on above: Average GFR for 40-4 9 years old: 99 mL/min/1.73sq m Chronic Kidney Disease: <60 mL/min/1.73sq m Kidney failure: <15 mL/min/1.73sq m eGFR calculated using average adult body mass. Additional eGFR calculator available at: http://www.Cherry/multiple_crcl_2012.htm Glucose [Mass/Vol] 155 mg/dL High 70 - 99 mg/dL [employer] Potassium [Moles/Vol] 3.9 mmol/L 3.7 - 5.3 mmol/L [employer] Sodium [Moles/Vol] 134 mmol/L Low 135 - 144 mmol/L [employer] Urea nitrogen (BldV) [Mass/Vol] 15 mg/dL 6 - 20 mg/dL [employer] CBC with Auto Differentialon 01-30-2022 Absolute Eos # 0.31 [facility] Absolute Immature Granulocyte 0.10 [employer] [facility] Absolute Lymph # 1.35 [facility] al[facility] Absolute Kings # 1.77 High [facility] l[facility] Basophils (Bld) [#/Vol] 0.00 10*3/uL [facility] Basophils/100 WBC (Bld) 0 % 0 - 2 % [facility] Eosinophils/100 WBC (Bld) 3 % 1 - 4 % [facility] Hematocrit (Bld) [Volume fraction] 29.9 % Low 40.7 - 50.3 % [facility] Hemoglobin.gastrointesti nal spec 1 Ql (Stl) 10.2 g/dL Low 13.0 - 17.0 g/dL [facility] Immature granulocytes/100 WBC (Bld) 1 % High 0 [facility] Interpretation and review of laboratory results Abnormal [facility] Lymphocytes/100 WBC (Bld) 13 % Low 24 - 44 % [facility] MCH (RBC) [Entitic mass] 32.6 pg 25. 2 - 33.5 pg [facility] MCHC (RBC) [Mass/Vol] 34.1 g/dL 28.4 - 34.8 g/dL [facility] MCV (RBC) [Entitic vol] 95.5 fL 82.6 - 102.9 fL [facility] Monocytes/100 WBC (Bld) 17 % High 1 - 7 % [facility] Morphology Adis (Bld) [Interp] ANISOCYTOSIS PRESENT [facility] NRBC Automated 0.0 0.0 per 100 WBC [facility] Platelet distribution width (Bld) [Ratio] 16.2 % High 11.8 - 14.4 % [facility] Platelets (Bld) [#/Vol] See Reflexed IPF Result [facility] RBC (Bld) [#/Vol] 3.13 10*6/uL Low 4.21 - 5.7 7 m/uL [facility] Segmented neutrophils/100 WBC (Bld) 66 % 36 - 66 % [facility] Segs [facility] 6.87 [facility] ([facility] [#/Vol] 10.4 10*3/uL [facility] CKon 01-30-2022 CK [Catalytic activity/Vol] 26 U/L Low 39 - 308 U/L [facility] Hepatic Function Panelon Albumin [Mass/Vol] 1.8 g/dL Low 3.5 - 5.2 g/dL [facility] Albumin/Globulin [Mass ratio] 0.4 {ratio} Low [facility] ALP (Bld) [Catalytic activity/Vol] 42 U/L 40 - 129 U/L [facility] ALT [Catalytic activity/Vol] 15 U/L 5 - 41 U/L [facility] AST [Catalytic activity/Vol] 29 U/L <40 [facility] Bilirubin [Mass/Vol] 1.66 mg/dL High 0.3 - 1 .2 mg/dL [facility] Bilirubin, Indirect 0.96 mg/dL 0.00 - 1 .00 mg/dL [facility] Bilirubin.indirect [Mass/Vol] 0.70 mg/dL High <0.31 [facility] Free PSA/Total PSA [Mass fraction] 6.4 g/dL 6.4 - 8.3 g/dL [facility] Immature Platelet Fractionon 01-30-2022 Interpretation and review of laboratory results Abnormal [facility] Platelet, Fluorescence 75 Low Me [facility] Comment on above: ORDERED BY LAB Platelet, Immature Fraction 3.3 % 1.1 - 10.3 % [facility] Comment on above: ORDERED BY LAB [facility] [employer] No Panel Informationon 01-30 Interpretation and review of laboratory results Abnormal [facility] SURGICAL PATHOLOGY REPORTon 01-30-2022 Surgical Pathology Report -- Diagnosis -- LEFT CALCANEUS BONE, EXCISION: - SEVERE ACUTE AND CHRONIC CELLULITIS WITH GRANULATION TISSUE REACTION AND FIBROSIS (CHRONIC ACTIVE ABSCESS). - ACUTE AND CHRONIC OSTEOMYELITIS WITH REACTIVE AND DESTRUCTIVE BONE CHANGES AND MEDULLARY FIBROSIS. Edward Paz M.D. Electronically Signed Out sls/01/30/2022 Clinical Information Pre-op Diagnosis: SEPTIC BURSITIS LEFT HEEL Operative Findings: LEFT CALCANEUS OSTEOMYELITIS Operation Performed: INCISION AND DRAINAGE, BONE BIOPSY HEEL Source of Specimen A: LEFT CALCANEUS OSTEOMYELITIS Gross Description TIP ANSARI, LEFT CALCANEUS OSTEOMYELITIS Fragments of blancas bone, 3.0 x 2.8 x 0.5 cm in aggregate. Entirely 1cs after decalcification. tm Microscopic Description Microscopic examination performed. SURGICAL PATHOLOGY CONSULTATION Patient Name: TIP [facility] Rec: [id number] Path Number: [id number] [facility] [employer] [facility] ANATOMIC PATHOLOGY [address] [place] [address]. [place], [place] [id number] [facility] Basic Metabolic Panel w/ Ref rebecca to MGon 01-29-2022 Anion gap [Moles/Vol] 10 mmol/L 9 - 17 mmol/L [facility] Calcium [Mass/Vol] 8.6 mg/dL 8.6 - 10. 4 mg/dL [facility] Chloride [Moles/Vol] 108 mmol/L High 98 - 10 7 mmol/L [facility] CO2 [Moles/Vol] 20 mmol/L 20 - 31 mmol/L [facility] Creatinine [Mass/Vol] 0.85 mg/dL 0.70 - 1.20 mg/dL [facility] GFR >60 >60 mL/min [facility] GFR Non- >60 >60 mL/min [facility] GFR/1.73 sq M.predicted MDRD (S/P/Bld) [Vol rate/Area] [facility] Comment on above: Average GFR for 40-4 9 years old: 99 mL/min/1.73sq m Chronic Kidney Disease: <60 mL/min/1.73sq m Kidney failure: <15 mL/min/1.73sq m eGFR calculated using average adult body mass. Additional eGFR calculator available at: http://www.Cherry/multiple_crcl_2012.htm Glucose [Mass/Vol] 95 mg/dL 70 - 99 mg/dL [facility] Potassium [Moles/Vol] 4.2 mmol/L 3.7 - 5.3 mmol/L [facility] Sodium [Moles/Vol] 138 mmol/L 135 - 144 mmol/L [facility] Urea nitrogen (BldV) [Mass/Vol] 31 mg/dL High 6 - 20 mg/dL [facility] CBC with Auto Differentialon 01-29-2022 Absolute Eos # 0.27 [facility] th Absolute Immature Granulocyte 0.05 [facility] Absolute Lymph # 1.01 Low [facility] Bas[facility] (Bld) [#/Vol] 0.05 10*3/uL [facility] Basophils/100 WBC (Bld) 1 % 0 - 2 % M [facility] Eosinophils/100 WBC (Bld) 3 % 1 - 4 % [facility] Hematocrit (Bld) [Volume fraction] 29.8 % Low 40.7 - 50.3 % [facility] Hemoglobin.gastrointesti nal spec 1 Ql (Stl) 9.4 g/dL Low 13.0 - 17.0 g/dL [facility] Immature granulocytes/100 WBC (Bld) 1 % High 0 [facility] [employer] Interpretation and review of laboratory results Abnormal [facility] Lymphocytes/100 WBC (Bld) 10 % Low 24 - 43 % [facility] MCH (RBC) [Entitic mass] 28.0 pg 25. 2 - 33.5 pg [facility] MCHC (RBC) [Mass/Vol] 31.5 g/dL 28.4 - 34.8 g/dL [facility] MCV (RBC) [Entitic vol] 88.7 fL 82.6 - 102.9 fL [facility] Monocytes/100 WBC (Bld) 10 % 3 - 12 % [facility] [employer] NRBC Automated 0.0 0.0 per 100 WBC [facility] Platelet distribution width (Bld) [Ratio] 17.4 % High 11.8 - 14.4 % [facility] Platelet mean volume (Bld) [Entitic vol] 8.7 fL 8.1 - 13.5 fL [facility] Platelets (Bld) [#/Vol] 131 10*3/uL Low [facility] RBC (Bld) [#/Vol] 3.36 10*6/uL Low 4.21 - 5.7 7 m/uL [facility] RBC (Bld) [#/Vol] ANISOCYTOSIS PRESENT [facility] Segmented neutrophils/100 WBC (Bld) 76 % High 36 - 65 % [facility] Segs Absolute 7.60 [facility] WBC (Bld) [#/Vol] 10.0 10*3/uL [facility] [employer] CKon 01-29-2022 CK [Catalytic activity/Vol] 10 U/L Low 39 - 308 U/L [facility] EKG 12 LeadOrdered By: Dorothy Pink on 01-29-2022 Atrial Rate 139 BPM [employer] Work Phone: P Savoy 54 degrees [employer] Work Phone: P-R Interval 136 ms [employer] Work Phone: Q-T Interval 278 ms [employer] Work Phone: QRS Duration 78 ms [employer] Work Phone: QTc Calculation (Bazett) 423 ms [employer] Work Phone: R [place] 65 degrees [employer] Work Phone: T [place] 51 degrees [employer] Work Phone: Ventricular Rate 139 BPM [employer] [facility] Work Phone: [employer] Work Phone: EKG 12 Leadon 01-29-2022 Sinus tachycardia Otherwise normal ECG No previous ECGs available [facility] Dorothy Fu MD - 01/29/2022 Sinus tachycardia Otherwise normal ECG No previous ECGs available [employer] Work Phone: Hepatic Function Panelon Albumin [Mass/Vol] 2.6 g/dL Low 3.5 - 5.2 g/dL [employer] Albumin/Globulin [Mass ratio] 0.7 {ratio} Low [employer] ALP (Bld) [Catalytic activity/Vol] 88 U/L 40 - 129 U/L [employer] ALT [Catalytic activity/Vol] 39 U/L 5 - 41 U/L [employer] AST [Catalytic activity/Vol] 23 U/L <40 [employer] Bilirubin [Mass/Vol] 0.38 mg/dL 0.3 - 1 .2 mg/dL [employer] Bilirubin, Indirect 0.27 mg/dL 0.00 - 1 .00 mg/dL [employer] Bilirubin.indirect [Mass/Vol] 0.11 mg/dL <0.31 [employer] Free PSA/Total PSA [Mass fraction] 6.2 g/dL Low 6.4 - 8.3 g/dL [facility] Panel Informationon 01-29 Interpretation and review of laboratory results Abnormal [facility] POC Glucose Fingerstickon Glucose [Mass/Vol] 100 mg/dL 75 - 110 mg/dL [facility] [employer] Basic Metabolic Panel w/ Ref rebecca to MGon 01-28-2022 Anion gap [Moles/Vol] 14 mmol/L 9 - 17 mmol/L [employer] Calcium [Mass/Vol] 8.9 mg/dL 8.6 - 10. 4 mg/dL [employer] Chloride [Moles/Vol] 103 mmol/L 98 - 10 7 mmol/L [facility] CO2 [Moles/Vol] 20 mmol/L 20 - 31 mmol/L [facility] Creatinine [Mass/Vol] 0.98 mg/dL 0.70 - 1.20 mg/dL [facility] GFR >60 >60 mL/min [facility] GFR Non- >60 >60 mL/min [facility] GFR/1.73 sq M.predicted MDRD (S/P/Bld) [Vol rate/Area] [facility] Comment on above: Average GFR for 40-4 9 years old: 99 mL/min/1.73sq m Chronic Kidney Disease: <60 mL/min/1.73sq m Kidney failure: <15 mL/min/1.73sq m eGFR calculated using average adult body mass. Additional eGFR calculator available at: http://www.Cherry/multiple_crcl_2012.htm Glucose [Mass/Vol] 153 mg/dL High 70 - 99 mg/dL [facility] Interpretation and review of laboratory results Abnormal [facility] Potassium [Moles/Vol] 3.5 mmol/L Low 3.7 - 5.3 mmol/L [facility] Sodium [Moles/Vol] 137 mmol/L 135 - 144 mmol/L [facility] Urea nitrogen (BldV) [Mass/Vol] 29 mg/dL High 6 - 20 mg/dL [facility] CBC with Auto Differentialon 01-28-2022 Absolute Eos # 0.24 [facility] th Absolute Immature Granulocyte 0.08 [facility] Absolute Lymph # 1.40 [facility] Absolute Kings # 0.46 [facility] Basophils (Bld) [#/Vol] 0.03 10*3/uL [facility] Basophils/100 WBC (Bld) 0 % 0 - 2 % [facility] Eosinophils/100 WBC (Bld) 3 % 1 - 4 % [facility] Hematocrit (Bld) [Volume fraction] 30.1 % Low 40.7 - 50.3 % [facility] Hemoglobin.gastrointesti nal spec 1 Ql (Stl) 9.4 g/dL Low 13.0 - 17.0 g/dL [facility] Immature granulocytes/100 WBC (Bld) 1 % High 0 [facility] Interpretation and review of laboratory results Abnormal [facility] Lymphocytes/100 WBC (Bld) 18 % Low 24 - 43 % [facility] MCH (RBC) [Entitic mass] 28.1 pg 25. 2 - 33.5 pg [facility] MCHC (RBC) [Mass/Vol] 31.2 g/dL 28.4 - 34.8 g/dL [facility] MCV (RBC) [Entitic vol] 90.1 fL 82.6 - 102.9 fL [facility] Monocytes/100 WBC (Bld) 6 % 3 - 12 % M [facility] NRBC Automated 0.0 0.0 per 100 WBC [facility] Platelet distribution width (Bld) [Ratio] 16.6 % High 11.8 - 14.4 % [facility] Platelet mean volume (Bld) [Entitic vol] 8.8 fL 8.1 - 13.5 fL [facility] Platelets (Bld) [#/Vol] 178 10*3/uL [facility] RBC (Bld) [#/Vol] 3.34 10*6/uL Low 4.21 - 5.7 7 m/uL [facility] RBC (Bld) [#/Vol] ANISOCYTOSIS PRESENT [facility] Segmented neutrophils/100 WBC (Bld) 72 % High 36 - 65 % [facility] Segs Absolute 5.55 [facility] WBC (Bld) [#/Vol] 7.8 10*3/uL [facility] CKon 01-28-2022 CK [Catalytic activity/Vol] 8 U/L Low 39 - 308 U/L [facility] Interpretation and review of laboratory results Abnormal [facility] Culture, Blood 1on 2 Bacteria identified Cx Nom (Unsp spec) NO GROWTH 5 DAYS [facility] Special Requests RIGHT FOREARM 20ML [facility] Specimen Description .BLOOD [facility] Bacteria identified Cx Nom (Unsp spec) NO GROWTH 5 DAYS [facility] Special Requests RIGHT HAND 20ML [facility] Specimen Description .BLOOD [facility] Hepatic Function Panelon Albumin [Mass/Vol] 3 g/dL Low 3.5 - 5.2 g/dL [facility] Albumin/Globulin [Mass ratio] 0.9 {ratio} Low [facility] ALP (Bld) [Catalytic activity/Vol] 96 U/L 40 - 129 U/L [facility] ALT [Catalytic activity/Vol] 21 U/L 5 - 41 U/L [facility] AST [Catalytic activity/Vol] 10 U/L <40 [facility] Bilirubin [Mass/Vol] mg/dL Low 0.3 - 1 .2 mg/dL [facility] Bilirubin, Indirect Can not be calculated 0.00 - 1.00 mg/dL [facility] Bilirubin.indirect [Mass/Vol] mg/dL <0.31 mg/dL [facility] Free PSA/Total PSA [Mass fraction] 6.4 g/dL 6.4 - 8.3 g/dL [facility] Interpretation and review of laboratory results Abnormal [facility] Lactic Acidon 01-28-2022 Lactic Acid, Whole Blood 1.6 mmol/L 0.7 - 2.1 mmol/L [facility] Interpretation and review of laboratory results Abnormal [facility] Lactic Acid, Whole Blood 4.9 mmol/L High 0.7 - 2.1 mmol/L [facility] Magnesiumon 01-28-2022 Magnesium [Mass/Vol] 1.7 mg/dL 1.6 - 2 .6 mg/dL [facility] Basic Metabolic Panel w/ Ref rebecca to MGon 01-27-2022 Anion gap [Moles/Vol] 11 mmol/L 9 - 17 mmol/L [facility] Calcium [Mass/Vol] 9.1 mg/dL 8.6 - 10. 4 mg/dL [facility] Chloride [Moles/Vol] 101 mmol/L 98 - 10 7 mmol/L [facility] CO2 [Moles/Vol] 24 mmol/L 20 - 31 mmol/L [facility] Creatinine [Mass/Vol] 0.93 mg/dL 0.70 - 1.20 mg/dL [facility] GFR >60 >60 mL/min [facility] GFR Non- >60 >60 mL/min [facility] GFR/1.73 sq M.predicted MDRD (S/P/Bld) [Vol rate/Area] [facility] Comment on above: Average GFR for 40-4 9 years old: 99 mL/min/1.73sq m Chronic Kidney Disease: <60 mL/min/1.73sq m Kidney failure: <15 mL/min/1.73sq m eGFR calculated using average adult body mass. Additional eGFR calculator available at: http://www.[employer] Round/multiple_crcl_2011.htm Glucose [Mass/Vol] 187 mg/dL High 70 - 99 mg/dL [facility] Potassium [Moles/Vol] 4.4 mmol/L 3.7 - 5.3 mmol/L [facility] Sodium [Moles/Vol] 136 mmol/L 135 - 144 mmol/L [facility] Urea nitrogen (BldV) [Mass/Vol] 25 mg/dL High 6 - 20 mg/dL [facility] CBC with Auto Differentialon 01-27-2022 Absolute Eos # 0.20 [facility] th Absolute Immature Granulocyte 0.00 [facility] Absolute Lymph # 1.39 [facility]th Absolute Kings [facility] 0.79 [facility] Basophils (Bld) [#/Vol] 0.00 10*3/uL [facility] Basophils/100 WBC (Bld) 0 % 0 - 2 % [facility] Eosinophils/100 WBC (Bld) 1 % 1 - 4 % [facility] Hematocrit (Bld) [Volume fraction] 31.8 % Low 40.7 - 50.3 % [facility] Hemoglobin.gastrointesti nal spec 1 Ql (Stl) 10.1 g/dL Low 13.0 - 17.0 g/dL [facility] Immature granulocytes/100 WBC (Bld) 0 % 0 [facility] Interpretation and review of laboratory results Abnormal [facility] Lymphocytes/100 WBC (Bld) 7 % Low 24 - 44 % [facility] MCH (RBC) [Entitic mass] 27.5 pg 25. 2 - 33.5 pg [facility] MCHC (RBC) [Mass/Vol] 31.8 g/dL 28.4 - 34.8 g/dL [facility] MCV (RBC) [Entitic vol] 86.6 fL 82.6 - 102.9 fL [facility] Monocytes/100 WBC (Bld) 4 % 1 - 7 % [facility] Morphology Adis (Bld) [Interp] ANISOCYTOSIS PRESENT [facility] NRBC Automated 0.0 0.0 per 100 WBC [facility] Platelet distribution width (Bld) [Ratio] 16.1 % High 11.8 - 14.4 % [facility] Platelet mean volume (Bld) [Entitic vol] 9.2 fL 8.1 - 13.5 fL [facility] Platelets (Bld) [#/Vol] 201 10*3/uL [facility] RBC (Bld) [#/Vol] 3.67 10*6/uL Low 4.21 - 5.7 7 m/uL [facility] Segmented neutrophils/100 WBC (Bld) 88 % High 36 - 66 % [facility] Segs Absolute 17.42 High [facility] WBC (Bld) [#/Vol] 19.8 10*3/uL High [facility] CKon 01-27-2022 CK [Catalytic activity/Vol] 11 U/L Low 39 - 308 U/L [facility] Hepatic Function Panelon Albumin [Mass/Vol] 3.1 g/dL Low 3.5 - 5.2 g/dL [facility] Albumin/Globulin [Mass ratio] 0.8 {ratio} Low [facility] ALP (Bld) [Catalytic activity/Vol] 87 U/L 40 - 129 U/L [facility] ALT [Catalytic activity/Vol] 27 U/L 5 - 41 U/L [facility] AST [Catalytic activity/Vol] 14 U/L <40 [facility] Bilirubin [Mass/Vol] 0.30 mg/dL 0.3 - 1 .2 mg/dL [facility] Bilirubin, Indirect 0.21 mg/dL 0.00 - 1 .00 mg/dL [facility] Bilirubin.indirect [Mass/Vol] 0.09 mg/dL <0.31 [facility] Free PSA/Total PSA [Mass fraction] 7.2 g/dL 6.4 - 8.3 g/dL [facility] No Panel Informationon 01-27 Interpretation and review of laboratory results Abnormal [facility] Basic Metabolic Panel w/ Ref rebecca to MGon 01-26-2022 Anion gap [Moles/Vol] 12 mmol/L 9 - 17 mmol/L [facility] Calcium [Mass/Vol] 9.5 mg/dL 8.6 - 10. 4 mg/dL [facility] Chloride [Moles/Vol] 104 mmol/L 98 - 10 7 mmol/L [facility] CO2 [Moles/Vol] 21 mmol/L 20 - 31 mmol/L [facility] Creatinine [Mass/Vol] 0.95 mg/dL 0.70 - 1.20 mg/dL [facility] GFR >60 >60 mL/min [facility] GFR Non- >60 >60 mL/min [facility] GFR/1.73 sq M.predicted MDRD (S/P/Bld) [Vol rate/Area] [facility] Comment on above: Average GFR for 40-4 9 years old: 99 mL/min/1.73sq m Chronic Kidney Disease: <60 mL/min/1.73sq m Kidney failure: <15 mL/min/1.73sq m eGFR calculated using average adult body mass. Additional eGFR calculator available at: http://www.Cherry/multiple_crcl_2011.htm Glucose [Mass/Vol] 123 mg/dL High 70 - 99 mg/dL [facility] Potassium [Moles/Vol] 4.2 mmol/L 3.7 - 5.3 mmol/L [facility] Sodium [Moles/Vol] 137 mmol/L 135 - 144 mmol/L [facility] Urea nitrogen (BldV) [Mass/Vol] 26 mg/dL High 6 - 20 mg/dL [facility] CBC with Auto Differentialon 01-26-2022 Absolute Eos # 0.42 [facility] th Absolute Immature Granulocyte 0.09 [facility] Absolute Lymph # 1.63 [facility] alth Absolute Kings # 1.11 [facility] lth Basophils (Bld) [#/Vol] 0.07 10*3/uL [facility] Basophils/100 WBC (Bld) 1 % 0 - 2 % M [facility] Eosinophils/100 WBC (Bld) 5 % High 1 - 4 % [facility] Hematocrit (Bld) [Volume fraction] 33.3 % Low 40.7 - 50.3 % [facility] Hemoglobin.gastrointesti nal spec 1 Ql (Stl) 10.7 g/dL Low 13.0 - 17.0 g/dL [facility] Immature granulocytes/100 WBC (Bld) 1 % High 0 [facility] Interpretation and review of laboratory results Abnormal [facility] Lymphocytes/100 WBC (Bld) 20 % Low 24 - 43 % [facility] MCH (RBC) [Entitic mass] 27.8 pg 25. 2 - 33.5 pg [facility] MCHC (RBC) [Mass/Vol] 32.1 g/dL 28.4 - 34.8 g/dL [facility] MCV (RBC) [Entitic vol] 86.5 fL 82.6 - 102.9 fL [facility] Monocytes/100 WBC (Bld) 14 % High 3 - 12 % M [facility] NRBC Automated 0.0 0.0 per 100 WBC [facility] Platelet distribution width (Bld) [Ratio] 16.6 % High 11.8 - 14.4 % [facility] Platelet mean volume (Bld) [Entitic vol] 8.7 fL 8.1 - 13.5 fL [facility] Platelets (Bld) [#/Vol] 183 10*3/uL [facility] RBC (Bld) [#/Vol] 3.85 10*6/uL Low 4.21 - 5.7 7 m/uL [facility] RBC (Bld) [#/Vol] ANISOCYTOSIS PRESENT [facility] Segmented neutrophils/100 WBC (Bld) 59 % 36 - 65 % [facility] Segs Absolute 4.87 [facility] WBC (Bld) [#/Vol] 8.2 10*3/uL [facility] CKon 01-26-2022 CK [Catalytic activity/Vol] 10 U/L Low 39 - 308 U/L [facility] Culture, Blood 1on 2 Bacteria identified Cx Nom (Unsp spec) NO GROWTH 5 DAYS [facility] Special Requests UNKNOWN [facility] Specimen Description .BLOOD [facility] FLUORO FOR SURGICAL PROCEDUR ESon 01-26-2022 Radiology exam is complete. No Radiologist dictation. Please follow up with ordering provider. [facility] RIS CONSOLIDATED Hepatic Function Panelon Albumin [Mass/Vol] 3.1 g/dL Low 3.5 - 5.2 g/dL [facility] Albumin/Globulin [Mass ratio] 0.6 {ratio} Low [facility] ALP (Bld) [Catalytic activity/Vol] 99 U/L 40 - 129 U/L [facility] ALT [Catalytic activity/Vol] 30 U/L 5 - 41 U/L [facility] AST [Catalytic activity/Vol] 19 U/L <40 [facility] Bilirubin [Mass/Vol] 0.21 mg/dL Low 0.3 - 1 .2 mg/dL [facility] Bilirubin, Indirect Can not be calculated 0.00 - 1.00 mg/dL [facility] Bilirubin.indirect [Mass/Vol] mg/dL <0.31 mg/dL [employer] Free PSA/Total PSA [Mass fraction] 8.0 g/dL 6.4 - 8.3 g/dL [facility] No Panel Informationon 01-26 Interpretation and review of laboratory results Abnormal [facility] US Heart Transesophagealon 0 01-26-2022 Transesophageal Echocardiography Report (GIANFRANCO) Patient Name COTY MIRANDA Date of Study 01/24/2022 A Date of 1980 Gender Male Age 42 year(s) Race Room Number 2009 Height: 72 inch, 182.88 cm Corporate ID [id number] Weight: 161 pounds, 73 kg # Patient Acct [id number] BSA: 1.94 m^2 BMI: 21.84 # kg/m^2 MR # [id number] Toll Line Repairer Kairn Denis Interpreting Physician Gordo Rueda [employer] Fellow Gaye Lewis Referring Nurse Practitioner Interpreting Referring Physician MARISOL ANDREA, * Fellow Type of Study GIANFRANCO procedure:2D echocardiogram, Color Doppler, TRANSESOPHAGEAL ECHO. Procedure Date Date: 01/24/2022 Start: 10:42 AM Study Location: [facility] Technical Quality: Good visualization Indications:Endocardi tis. History / Tech. Comments: Procedure explained to patient. Patient Status: Inpatient Height: 72 inches Weight: 161 pounds BSA: 1.94 m^2 BMI: 21.84 kg/m^2 GIANFRANCO Performed By: Interpreting Physician Type of Anesthesia: Conscious sedation Allergies - Penicillin. - *Unlisted:(vanco). CONCLUSIONS Summary Normal left ventricular chamber dimension and function. Estimated left ventricular ejection fraction 55 %. A small mobile echogenic density seen on the tricuspid valve, measuring 1.1 cm, suggesting a vegetation Mild to moderate eccentric tricuspid regurgitation. Signature FINDINGS Left Atrium Left atrium is normal in size. Left Ventricle Normal left ventricular chamber dimension and function. Estimated left ventricular ejection fraction 55 %. Right Atrium Right atrium is normal in size. Right Ventricle Normal right ventricular size and function. Mitral Valve Mitral valve is normal in structure. Trivial mitral regurgitation. Aortic Valve The aortic valve is trileaflet and opens adequately. No aortic insufficiency. Tricuspid Valve A vegetation is noted on the tricuspid valve. Mild to moderate eccentric tricuspid regurgitation. Pulmonic Valve Normal pulmonic valve. No pulmonic insufficiency. Pericardial Effusion No pericardial effusion. Miscellaneous The aorta shows mild plaque formation. [facility] Gauri Guerrero MD - 01/26/2022 Transesophageal Echocardiography Report (GIANFRANCO) Patient Name COTY MIRANDA Date of Study 01/24/2022 A Date of 1980 Gender Male Age 42 year(s) Race Room Number 2010 Height: 72 inch, 182.88 cm Corporate ID [id number] Weight: 161 pounds, 73 kg # Patient Acct [id number] BSA: 1.94 m^2 BMI: 21.84 # kg/m^2 MR # [id number] Toll Line Repairer Karin Denis Interpreting Physician Gordo Rueda [employer] Fellow Gaye Lewis Referring Nurse Practitioner Interpreting Referring Physician MARISOL ANDREA, * Fellow Type of Study GIANFRANCO procedure:2D echocardiogram, Color Doppler, TRANSESOPHAGEAL ECHO. Procedure Date Date: 01/24/2022 Start: 10:42 AM Study Location: [facility] Technical Quality: Good visualization Indications:Endocardi tis. History / Tech. Comments: Procedure explained to patient. Patient Status: Inpatient Height: 72 inches Weight: 161 pounds BSA: 1.94 m^2 BMI: 21.84 kg/m^2 GIANFRANCO Performed By: Interpreting Physician Type of Anesthesia: Conscious sedation Allergies - Penicillin. - *Unlisted:([place]). CONCLUSIONS Summary Normal left ventricular chamber dimension and function. Estimated left ventricular ejection fraction 55 %. A small mobile echogenic density seen on the tricuspid valve, measuring 1.1 cm, suggesting a vegetation Mild to moderate eccentric tricuspid regurgitation. Signature - - - Electronically signed by Gauri Guerrero([facility]) on 01/26/2022 11:51 AM - FINDINGS Left Atrium Left atrium is normal in size. Left Ventricle Normal left ventricular chamber dimension and function. Estimated left ventricular ejection fraction 55 %. Right Atrium Right atrium is normal in size. Right Ventricle Normal right ventricular size and function. Mitral Valve Mitral valve is normal in structure. Trivial mitral regurgitation. Aortic Valve The aortic valve is trileaflet and opens adequately. No aortic insufficiency. Tricuspid Valve A vegetation is noted on the tricuspid valve. Mild to moderate eccentric tricuspid regurgitation. Pulmonic Valve Normal pulmonic valve. No pulmonic insufficiency. Pericardial Effusion No pericardial effusion. Miscellaneous The aorta shows mild plaque formation. [employer] Work Phone: US Heart TransesophagealOrde red By: Gauri Guerrero on 01-26-2022 [employer] Work Phone: Basic Metabolic Panel w/ Ref rebecca to MGon 01-25-2022 Anion gap [Moles/Vol] 14 mmol/L 9 - 17 mmol/L [employer] Calcium [Mass/Vol] 9.0 mg/dL 8.6 - 10. 4 mg/dL [employer] Chloride [Moles/Vol] 105 mmol/L 98 - 10 7 mmol/L [employer] CO2 [Moles/Vol] 20 mmol/L 20 - 31 mmol/L [employer] Creatinine [Mass/Vol] 0.82 mg/dL 0.70 - 1.20 mg/dL [employer] GFR >60 >60 mL/min [facility] GFR Non- >60 >60 mL/min [employer] GFR/1.73 sq M.predicted MDRD (S/P/Bld) [Vol rate/Area] [facility] Comment on above: Average GFR for 40-4 9 years old: 99 mL/min/1.73sq m Chronic Kidney Disease: <60 mL/min/1.73sq m Kidney failure: <15 mL/min/1.73sq m eGFR calculated using average adult body mass. Additional eGFR calculator available at: http://www.Cherry/multiple_crcl_2011.htm Glucose [Mass/Vol] 109 mg/dL High 70 - 99 mg/dL [facility] Potassium [Moles/Vol] 4.4 mmol/L 3.7 - 5.3 mmol/L [facility] Sodium [Moles/Vol] 139 mmol/L 135 - 144 mmol/L [facility] Urea nitrogen (BldV) [Mass/Vol] 19 mg/dL 6 - 20 mg/dL [facility] CBC with Auto Differentialon 01-25-2022 Absolute Eos # 0.34 [facility] th Absolute Immature Granulocyte 0.07 [facility] Absolute Lymph # 1.54 [facility] alth Absolute Kings # 1.01 [facility] lt Basophils (Bld) [#/Vol] 0.04 10*3/uL [facility] Basophils/100 WBC (Bld) 0 % 0 - 2 % [facility] Eosinophils/100 WBC (Bld) 4 % 1 - 4 % [facility] Hematocrit (Bld) [Volume fraction] 34.5 % Low 40.7 - 50.3 % [facility] Hemoglobin.gastrointesti nal spec 1 Ql (Stl) 10.6 g/dL Low 13.0 - 17.0 g/dL [facility] Immature granulocytes/100 WBC (Bld) 1 % High 0 [facility] Interpretation and review of laboratory results Abnormal [facility] Lymphocytes/100 WBC (Bld) 17 % Low 24 - 43 % [facility] MCH (RBC) [Entitic mass] 27.5 pg 25. 2 - 33.5 pg [facility] MCHC (RBC) [Mass/Vol] 30.7 g/dL 28.4 - 34.8 g/dL [facility] MCV (RBC) [Entitic vol] 89.6 fL 82.6 - 102.9 fL [facility] Monocytes/100 WBC (Bld) 11 % 3 - 12 % [facility] NRBC Automated 0.0 0.0 per 100 WBC [facility] Platelet distribution width (Bld) [Ratio] 16.6 % High 11.8 - 14.4 % [facility] Platelet mean volume (Bld) [Entitic vol] 9.2 fL 8.1 - 13.5 fL [facility] Platelets (Bld) [#/Vol] 189 10*3/uL [facility] RBC (Bld) [#/Vol] 3.85 10*6/uL Low 4.21 - 5.7 7 m/uL [facility] RBC (Bld) [#/Vol] ANISOCYTOSIS PRESENT [facility] Segmented neutrophils/100 WBC (Bld) 67 % High 36 - 65 % [facility] Segs Absolute 5.95 [facility] W[facility] (Bld) [#/Vol] 9.0 10*3/uL [facility] CKon 01-25-2022 CK [Catalytic activity/Vol] 9 U/L Low 39 - 308 U/L [facility] Cult,Bloodon 01-25-2022 Cult,Blood Specimen Description .BLOOD Special Requests 5 ML R ELBOW Culture NO GROWTH 5 DAYS Report Status FINAL 01/25/2022 Normal [facility] Comment on above: Performed By: #### B C #### [facility] [address] [place] [address] Substance Addiction Coordinator: Joelle Parker MD Cult,Blood Specimen Description .BLOOD Special Requests 20 ML LEFT FOREARM Culture NO GROWTH 5 DAYS Report Status FINAL 01/25/2022 [facility] Comment on above: Performed By: #### B C #### [facility] [address] [place] [address] Substance Addiction Coordinator: Joelle Parker MD Culture, Blood 1on 2 Bacteria identified Cx Nom (Unsp spec) Positive [facility] Bacteria identified Cx Nom (Unsp spec) DIRECT GRAM STAIN FROM BOTTLE: YEAST [facility] Bacteria identified Cx Nom (Unsp spec) Detected: Nathaniel albicans Detected: Methodology- Polymerase Chain Reaction (PCR) [facility] Bacteria identified Cx Nom (Unsp spec) NATHANIEL ALBICANS [facility] Bacteria identified Cx Nom (Unsp spec) (NOTE) Direct Gram Stain from bottle and Polymerase Chain Reaction (PCR) results called to and read back by: SRUTHI Sawyer RN AT 1925 ON 01/22/22. [facility] Special Requests 5ML UNK SITE [facility] Specimen Description .BLOOD [facility] Special Requests 5ML R HAND [facility] Special Requests 5ML R WRIST [facility] Hepatic Function Panelon Albumin [Mass/Vol] 3 g/dL Low 3.5 - 5.2 g/dL [facility] Albumin/Globulin [Mass ratio] 0.7 {ratio} Low [facility] ALP (Bld) [Catalytic activity/Vol] 99 U/L 40 - 129 U/L [facility] ALT [Catalytic activity/Vol] 31 U/L 5 - 41 U/L [facility] AST [Catalytic activity/Vol] 21 U/L <40 [facility] Bilirubin [Mass/Vol] 0.20 mg/dL Low 0.3 - 1 .2 mg/dL [facility] Bilirubin, Indirect Can not be calculated 0.00 - 1.00 mg/dL [facility] Bilirubin.indirect [Mass/Vol] mg/dL <0.31 mg/dL [facility] Free PSA/Total PSA [Mass fraction] 7.5 g/dL 6.4 - 8.3 g/dL [facility] Infectious Disease Intervent ionon 01-25-2022 Intervention Targeted therapy [facility] Comment on above: Endocarditis nathaniel and recent MRSA [facility] Laboratory - Microbiology an d Antimicrobial susceptibilityon 01-25-2022 Bacteria identified Cx Nom (Unsp spec) NO GROWTH 5 DAYS [facility] No Panel Informationon 01-25 Teofilo Becker RN 01/25/2022 7:26 PM Picc placement note: PICC approved per ID. Prescribed IV Therapy= Multiple half-way IV Abx/Antifungals Peripheral ultrasound assessment done, right upper arm veins non compressible. 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 Left arm assessment notes upper brachial vein (almost in armpit) large and compressible. Plan for left proximal arm brachial vein insertion with a 4-5cm subcutaneous tunnel from skin entrance site to vein entrance site. Vein measurement = 0.78 CVR= 6%. Product type: Bard 5fr dual lumen Power PICC SOLO2. History/Labs/Allergie s Reviewed Placed By: Liban Mace RN IV Team Assisted By: Darnell Hoyt Time out Performed using Two Identifiers Lot #[id number] Expiration date = Catheter size 5 japanese Trimmed at 45cm Total length inserted 40cm External catheter length 5cm Number of attempts 1 Estimated blood loss 2 ml Placement verified by- VPS Tip confirmation system (Neg deflection p-wave and max p-wave noted), positive blood return, and flushes easily Special equipment used- VPS Tip tracker, ultrasound, and micro-introducer technique Catheter securement = statlock Dressing applied= Tegaderm CHG Lidocaine administered intradermally conc.1% 2 mL RN aware picc placed with VPS ECG technology and is confirmed in distal 1/3 SVC. Picc is okay to use.Rn aware new iv tubing required. PICC education: [X] Discussed with patient/Family or POA prior to procedure. Risks and Benefits along with reason for procedure were discussed and teaching was reinforced with an education handout on line insertion. [facility] FAQ Catheter Associated Blood Stream Infections and [facility] 36517 REV. 05/23 Nursing and Booklet left at bedside or in chart. Patient (Family or POA) acknowledged understanding of information taught and agreed to procedure. Teofilo Becker RN [facility] Work Phone: Interpretation and review of laboratory results Abnormal [facility] Specimen Description .BLOOD [facility] Tip Confirmation System (TCS ) and/ or Chest Xray for tip confirmationon 01-25-2022 [facility] [employer] Work Phone: COVID-19, Rapidon 01-24-2022 SARS-CoV-2 (COVID-19) RNA CHARO+probe Ql (Unsp spec) Not detected Not Detected [facility] Comment on above: Rapid NAAT: The specimen is NEGATIVE for SARS-CoV-2, the novel coronavirus associated with COVID-19. The ID NOW COVID-19 assay is designed to detect the virus that causes COVID-19 in patients with signs and symptoms of infection who are suspected of COVID-19. An individual without symptoms of COVID-19 and who is not shedding SARS-CoV-2 virus would expect to have a negative (not detected) result in this assay. Negative results should be treated as presumptive and, if inconsistent with clinical signs and symptoms or necessary for patient management, should be tested with an alternative molecular assay. Negative results do not preclude SARS-CoV-2 infection and should not be used as the sole basis for patient management decisions. Fact sheet for Healthcare Providers: https://www.fda.gov/media/537138/download Fact sheet for Patients: https://www.fda.gov/media/808663/download Methodology: Isothermal Nucleic Acid Amplification Specimen Description .NASOPHARYNGEAL SWAB [facility] Catheterization and angiogra phy procedure details panelon 01-24-2022 [facility] Work Phone: POC Glucose Fingerstickon Glucose [Mass/Vol] 97 mg/dL 75 - 110 mg/dL [facility] CBC with Auto Differentialon 01-23-2022 Absolute Eos # 0.13 [facility] th Absolute Immature Granulocyte 0.03 [facility] Absolute Lymph # 1.03 Low [facility] alth Absolute Kings # 0.83 [facility] lth Basophils (Bld) [#/Vol] 0.03 10*3/uL [facility] Basophils/100 WBC (Bld) 1 % 0 - 2 % [facility] Eosinophils/100 WBC (Bld) 2 % 1 - 4 % [facility] Hematocrit (Bld) [Volume fraction] 34.1 % Low 40.7 - 50.3 % [facility] Hemoglobin.gastrointesti nal spec 1 Ql (Stl) 11.3 g/dL Low 13.0 - 17.0 g/dL [facility] Immature granulocytes/100 WBC (Bld) 1 % High 0 [facility] Interpretation and review of laboratory results Abnormal [facility] Lymphocytes/100 WBC (Bld) 18 % Low 24 - 43 % [facility] MCH (RBC) [Entitic mass] 27.9 pg 25. 2 - 33.5 pg [facility] MCHC (RBC) [Mass/Vol] 33.1 g/dL 28.4 - 34.8 g/dL [facility] MCV (RBC) [Entitic vol] 84.2 fL 82.6 - 102.9 fL [facility] Monocytes/100 WBC (Bld) 15 % High 3 - 12 % [facility] NRBC Automated 0.0 0.0 per 100 WBC [facility] Platelet distribution width (Bld) [Ratio] 16.1 % High 11.8 - 14.4 % [facility] Platelet mean volume (Bld) [Entitic vol] 9.8 fL 8.1 - 13.5 fL [facility] Platelets (Bld) [#/Vol] 121 10*3/uL Low [facility] RBC (Bld) [#/Vol] 4.05 10*6/uL Low 4.21 - 5.7 7 m/uL [facility] RBC (Bld) [#/Vol] ANISOCYTOSIS PRESENT [facility] Segmented neutrophils/100 WBC (Bld) 63 % 36 - 65 % [facility] Segs Absolute 3.62 [facility] WBC (Bld) [#/Vol] 5.7 10*3/uL [facility] Hepatic Function Panelon Albumin [Mass/Vol] 2.8 g/dL Low 3.5 - 5.2 g/dL [facility] Albumin/Globulin [Mass ratio] 0.6 {ratio} Low [facility] ALP (Bld) [Catalytic activity/Vol] 85 U/L 40 - 129 U/L [facility] ALT [Catalytic activity/Vol] 32 U/L 5 - 41 U/L [facility] AST [Catalytic activity/Vol] 29 U/L <40 [facility] Bilirubin [Mass/Vol] 0.29 mg/dL Low 0.3 - 1 .2 mg/dL [facility] Bilirubin, Indirect 0.2 mg/dL 0.00 - 1 .00 mg/dL [facility] Bilirubin.indirect [Mass/Vol] 0.09 mg/dL <0.31 [facility] Free PSA/Total PSA [Mass fraction] 7.4 g/dL 6.4 - 8.3 g/dL [facility] Interpretation and review of laboratory results Abnormal [facility] MRI ANKLE LEFT W WO CONTRAST on 01-23-2022 1. Osteomyelitis of the calcaneus with moderate amount of fluid within the retrocalcaneal bursa demonstrating pronounced peripheral enhancement. The fluid extends through the partially torn distal Achilles tendon to the adjacent soft tissues posteriorly. Findings suggesting septic bursitis with involvement of the distal Achilles tendon. There is underlying moderate to severe distal Achilles tendinosis. 2. Evidence for remote sprain of the intact anterior talofibular ligament. PN RIS CONSOLIDATED EXAMINATION: MRI OF THE LEFT ANKLE WITHOUT AND WITH CONTRAST, 01/23/2022 4:44 pm TECHNIQUE: Multiplanar multisequence MRI of the left ankle was performed without and with the administration of intravenous contrast. COMPARISON: Left calcaneus radiograph January 21, 2022 HISTORY: ORDERING SYSTEM PROVIDED HISTORY: Left foot pain look for abscess or left ankle septic arthritis TECHNOLOGIST PROVIDED HISTORY: Left foot pain look for abscess or left ankle septic arthritis Reason for Exam: Left foot pain look for abscess or left ankle septic arthritis FINDINGS: SYNDESMOTIC LIGAMENTS: The anterior-inferior tibiofibular ligament, interosseous membrane and posterior-inferior tibiofibular ligaments are intact. LATERAL COLLATERAL LIGAMENT COMPLEX: Attenuated but intact anterior talofibular ligament compatible sequela of remote sprain. Calcaneofibular ligament and posterior talofibular ligament remain intact. DELTOID LIGAMENT COMPLEX: Deltoid ligament complex is intact. SINUS TARSI AND SPRING LIGAMENT: The fat plug within the sinus tarsi is preserved and the interosseous and cervical ligaments are normal. The navicular-calcaneal (spring) ligament is without acute abnormality. MEDIAL TENDONS: The posterior tibialis, flexor digitorum longus and flexor hallucis longus tendons are intact. LATERAL TENDONS: The peroneus longus and brevis tendons are intact. ANTERIOR TENDONS: The tibialis anterior, extensor hallucis longus and extensor digitorum longus tendons are normal in position, morphology and signal. ACHILLES TENDON: Moderate to severe distal Achilles tendinosis with partial tearing and infectious involvement of the distal Achilles tendon with fluid and enhancement of the distal Achilles tendon. Additionally, there is a moderate volume of fluid within the retrocalcaneal bursa which communicates with the partially torn distal Achilles tendon and demonstrates prominent peripheral enhancement with enhancement of the adjacent soft tissues. This extends through the distal Achilles tendon to abut the skin surface dorsally (images 18 through 26 series 11). PLANTAR FASCIA: The medial and lateral bundles of the plantar fascia are normal in morphology and signal. There is no evidence of acute plantar fasciitis or tear. No evidence of plantar fascial nodules. TARSAL TUNNEL: There are no obstructing lesions within the tarsal tunnel. BONE MARROW: Bone marrow edema of the calcaneus with confluent decreased T1 signal loss and associated postcontrast enhancement consistent with osteomyelitis. No suspicious marrow occupying lesion. No fracture. JOINT SPACES: Anatomic alignment of the joints. No joint effusion. [facility] Addy Turner MD - 01/23/2022 EXAMINATION: MRI OF THE LEFT ANKLE WITHOUT AND WITH CONTRAST, 01/23/2022 4:44 pm TECHNIQUE: Multiplanar multisequence MRI of the left ankle was performed without and with the administration of intravenous contrast. COMPARISON: Left calcaneus radiograph January 21, 2022 HISTORY: ORDERING SYSTEM PROVIDED HISTORY: Left foot pain look for abscess or left ankle septic arthritis TECHNOLOGIST PROVIDED HISTORY: Left foot pain look for abscess or left ankle septic arthritis Reason for Exam: Left foot pain look for abscess or left ankle septic arthritis FINDINGS: SYNDESMOTIC LIGAMENTS: The anterior-inferior tibiofibular ligament, interosseous membrane and posterior-inferior tibiofibular ligaments are intact. LATERAL COLLATERAL LIGAMENT COMPLEX: Attenuated but intact anterior talofibular ligament compatible sequela of remote sprain. Calcaneofibular ligament and posterior talofibular ligament remain intact. DELTOID LIGAMENT COMPLEX: Deltoid ligament complex is intact. SINUS TARSI AND SPRING LIGAMENT: The fat plug within the sinus tarsi is preserved and the interosseous and cervical ligaments are normal. The navicular-calcaneal (spring) ligament is without acute abnormality. MEDIAL TENDONS: The posterior tibialis, flexor digitorum longus and flexor hallucis longus tendons are intact. LATERAL TENDONS: The peroneus longus and brevis tendons are intact. ANTERIOR TENDONS: The tibialis anterior, extensor hallucis longus and extensor digitorum longus tendons are normal in position, morphology and signal. ACHILLES TENDON: Moderate to severe distal Achilles tendinosis with partial tearing and infectious involvement of the distal Achilles tendon with fluid and enhancement of the distal Achilles tendon. Additionally, there is a moderate volume of fluid within the retrocalcaneal bursa which communicates with the partially torn distal Achilles tendon and demonstrates prominent peripheral enhancement with enhancement of the adjacent soft tissues. This extends through the distal Achilles tendon to abut the skin surface dorsally (images 18 through 26 series 11). PLANTAR FASCIA: The medial and lateral bundles of the plantar fascia are normal in morphology and signal. There is no evidence of acute plantar fasciitis or tear. No evidence of plantar fascial nodules. TARSAL TUNNEL: There are no obstructing lesions within the tarsal tunnel. BONE MARROW: Bone marrow edema of the calcaneus with confluent decreased T1 signal loss and associated postcontrast enhancement consistent with osteomyelitis. No suspicious marrow occupying lesion. No fracture. JOINT SPACES: Anatomic alignment of the joints. No joint effusion. IMPRESSION: 1. Osteomyelitis of the calcaneus with moderate amount of fluid within the retrocalcaneal bursa demonstrating pronounced peripheral enhancement. The fluid extends through the partially torn distal Achilles tendon to the adjacent soft tissues posteriorly. Findings suggesting septic bursitis with involvement of the distal Achilles tendon. There is underlying moderate to severe distal Achilles tendinosis. 2. Evidence for remote sprain of the intact anterior talofibular ligament. [employer] Work Phone: Radiology Study observation (narrative) [employer] [facility] Work Phone: MRI ANKLE LEFT W WO CONTRAST Ordered By: Addy Turner on 01-23-2022 [employer] Work Phone: POC Glucose Fingerstickon Glucose [Mass/Vol] 122 mg/dL High 75 - 110 mg/dL [employer] Interpretation and review of laboratory results Abnormal [employer] Glucose [Mass/Vol] 99 mg/dL 75 - 110 mg/dL [employer] Glucose [Mass/Vol] 141 mg/dL High 75 - 110 mg/dL [employer] Interpretation and review of laboratory results Abnormal [employer] Renal Function Panelon 01-23 Albumin [Mass/Vol] 2.8 g/dL Low 3.5 - 5.2 g/dL [employer] Anion gap [Moles/Vol] 13 mmol/L 9 - 17 mmol/L [employer] Calcium [Mass/Vol] 8.9 mg/dL 8.6 - 10. 4 mg/dL [employer] Chloride [Moles/Vol] 98 mmol/L 98 - 10 7 mmol/L [employer] CO2 [Moles/Vol] 21 mmol/L 20 - 31 mmol/L [employer] Creatinine [Mass/Vol] 0.68 mg/dL Low 0.70 - 1.20 mg/dL [employer] GFR >60 >60 mL/min [employer] GFR Non- >60 >60 mL/min [employer] GFR/1.73 sq M.predicted MDRD (S/P/Bld) [Vol rate/Area] [employer] Comment on above: Average GFR for 40-4 9 years old: 99 mL/min/1.73sq m Chronic Kidney Disease: <60 mL/min/1.73sq m Kidney failure: <15 mL/min/1.73sq m eGFR calculated using average adult body mass. Additional eGFR calculator available at: http://www.Cherry/multiple_crcl_2012.htm Glucose [Mass/Vol] 148 mg/dL High 70 - 99 mg/dL [facility] Interpretation and review of laboratory results Abnormal [employer] Phosphate [Mass/Vol] 2.7 mg/dL 2.5 - 4 .5 mg/dL [facility] [employer] Potassium [Moles/Vol] 4.2 mmol/L 3.7 - 5.3 mmol/L [facility] [employer] Sodium [Moles/Vol] 132 mmol/L Low 135 - 144 mmol/L [facility] Urea nitrogen (BldV) [Mass/Vol] 14 mg/dL 6 - 20 mg/dL [facility] Vancomycin Level, Randomon 0 01-23-2022 Vancomycin Rm <4.0 ug/mL [facility] Comment on above: Higher trough serum vancomycin concentrations of 15-20 ug/mL are recommended for complicated infections such as bacteremia, endocarditis, osteomyelitis, meningitis, and hospital acquired pneumonia. [employer] [facility] Hemoglobin A1Con 01-22-2022 Glucose [Mass/Vol] 114 mg/dL [facility] Comment on above: The ADA and AACC rec ommend providing the estimated average glucose result to permit better patient understanding of their HBA1c result. HbA1c (Bld) [Mass fraction] 5.6 % 4.0 - 6.0 % [facility] POC Glucose Fingerstick[employer] Glucose [Mass/Vol] 95 mg/dL 75 - 110 mg/dL [facility] Glucose [Mass/Vol] 179 mg/dL High 75 - 110 mg/dL [facility] Interpretation and review of laboratory results Abnormal [facility] Glucose [Mass/Vol] 104 mg/dL 75 - 110 mg/dL [facility] Basic Metabolic Panel w/ Ref rebecca to MGon 01-21-2022 Anion gap [Moles/Vol] 14 mmol/L 9 - 17 mmol/L [facility] [employer] Calcium [Mass/Vol] 8.6 mg/dL 8.6 - 10. 4 mg/dL [facility] Chloride [Moles/Vol] 106 mmol/L 98 - 10 7 mmol/L [facility] CO2 [Moles/Vol] 20 mmol/L 20 - 31 mmol/L [facility] Creatinine [Mass/Vol] 0.73 mg/dL 0.70 - 1.20 mg/dL [facility] GFR >60 >60 mL/min [facility] GFR Non- >60 >60 mL/min [facility] GFR/1.73 sq M.predicted MDRD (S/P/Bld) [Vol rate/Area] [facility] Comment on above: Average GFR for 40-4 9 years old: 99 mL/min/1.73sq m Chronic Kidney Disease: <60 mL/min/1.73sq m Kidney failure: <15 mL/min/1.73sq m eGFR calculated using average adult body mass. Additional eGFR calculator available at: http://www.Cherry/multiple_crcl_2011.htm Glucose [Mass/Vol] 288 mg/dL High 70 - 99 mg/dL [facility] Interpretation and review of laboratory results Abnormal [facility] Potassium [Moles/Vol] 3.9 mmol/L 3.7 - 5.3 mmol/L [facility] Sodium [Moles/Vol] 140 mmol/L 135 - 144 mmol/L [facility] Urea nitrogen (BldV) [Mass/Vol] 17 mg/dL 6 - 20 mg/dL [facility] C-Reactive Proteinon 022 CRP [Mass/Vol] 51.6 mg/L High 0.0 - 5.0 mg/L [facility] Interpretation and review of laboratory results Abnormal [facility] Lactic Acidon 01-21-2022 Interpretation and review of laboratory results Abnormal [facility] Lactic Acid, Whole Blood 3.3 mmol/L High 0.7 - 2.1 mmol/L [facility] POC Glucose [employer] Glucose [Mass/Vol] 129 mg/dL High 75 - 110 mg/dL [facility] Interpretation and review of laboratory results Abnormal [facility] Procalcitoninon 01-21-2022 Interpretation and review of laboratory results Abnormal [facility] Procalcitonin 11.47 ng/mL High <0.09 [facility] Comment on above: Suspected Sepsis: <0.50 ng/mL Low likelihood of sepsis. 0.50-2.00 ng/mL Increased likelihood of sepsis. Antibiotics encouraged. >2.00 ng/mL High risk of sepsis/shock. Antibiotics strongly encouraged. Suspected Lower Resp Tract Infections: <0.24 ng/mL Low likelihood of bacterial infection. >0.24 ng/mL Increased likelihood of bacterial infection. Antibiotics encouraged. With successful antibiotic therapy, PCT levels should decrease rapidly. (Half-life of 24 to 36 hours.) Procalcitonin values from samples collected within the first 6 hours of systemic infection may still be low. Retesting may be indicated. Values from day 1 and day 4 can be entered into the Change in Procalcitonin Calculator (www.icpbdt-vbf-brwzpphahv.Primo Round) to determine the patient's Mortality Risk Prognosis In healthy neonates, plasma Procalcitonin (PCT) concentrations increase gradually after , reaching peak values at about 24 hours of age then decrease to normal values below 0.5 ng/mL by 48-72 hours of age. [facility] Protime-INRon 01-21-2022 INR Coag (Bld) [Relative time] 1.0 {INR} [facility] Comment on above: Therapeutic Range: Moderate Anticoagulant Intensity: INR = 2.0-3.0 High Anticoagulant Intensity: INR = 2.5-3.5 PT Coag (PPP) [Time] [address] [facility] Sedimentation Rateon 022 Interpretation and review of laboratory results Abnormal [facility] Sed Rate 58 mm High 0 - 15 mm [facility] XR CALCANEUS LEFT (MIN 2 VIE WS)on 01-21-2022 1. Soft tissue swelling along the heel of the left foot. No evidence of osteomyelitis. [facility] EXAMINATION: 3 XRAY VIEWS OF THE LEFT CALCANEUS 01/21/2022 5:51 am COMPARISON: 01/10/2022 HISTORY: ORDERING SYSTEM PROVIDED HISTORY: Wound TECHNOLOGIST PROVIDED HISTORY: Wound Reason for Exam: pain FINDINGS: There are areas of edema noted along the left heel. There is no bone erosion or periosteal reaction. No fracture. No retained radiopaque foreign body. [facility] Jefe Bassett MD - 01/21/2022 EXAMINATION: 3 XRAY VIEWS OF THE LEFT CALCANEUS 01/21/2022 5:51 am COMPARISON: 01/10/2022 HISTORY: ORDERING SYSTEM PROVIDED HISTORY: Wound TECHNOLOGIST PROVIDED HISTORY: Wound Reason for Exam: pain FINDINGS: There are areas of edema noted along the left heel. There is no bone erosion or periosteal reaction. No fracture. No retained radiopaque foreign body. IMPRESSION: 1. Soft tissue swelling along the heel of the left foot. No evidence of osteomyelitis. [facility] [employer] Work Phone: Radiology Study observation (narrative) [facility] Work Phone: XR CALCANEUS LEFT (MIN 2 VIE WS)Ordered By: Jefe Bassett on 01-21-2022 [facility] Work Phone: Brain Natri. Peptideon 01-20 Natriuretic peptide B (Bld) [Mass/Vol] 93 pg/mL Normal <300 [facility] Comment on above: Result Comment: An age-independent cutoff point of 300 pg/ml has a 98% negative predictive value excluding acute heart failure. Performed By: #### C P, CDP #### [facility] [address] [place] [address] [place] [address] Substance Addiction Coordinator: Joelle Parker MD CBC with Diffon 01-20-2022 Abs. Basophil 0.00 k/uL Normal 0.0-0.2 [facility] Comment on above: Performed By: #### C P, CDP #### [facility] [address] [place] [address] [place] [address] Substance Addiction Coordinator: Joelle Parker MD Abs.Imm.Granulocyte 0.00 k/uL Normal 0.00-0.30 [facility] Comment on above: Performed By: #### C P, CDP #### [address] [place] [address] Substance Addiction Coordinator: Joelle Parker MD Abs.Neutrophil (Seg) 9.64 k/uL High 1.50-8.10 [facility] Comment on above: Performed By: #### C P, CDP #### [facility] [address] [place], [place] [id number] Substance Addiction Coordinator: Joelle Parker MD Basophils/100 WBC (Bld) 0 % Normal 0-2 [facility] Comment on above: Performed By: #### C P, CDP #### [facility] [address] [place], [facility] Substance Addiction Coordinator: Joelle Parker MD Eosinophils (Bld) [#/Vol] 0.21 10*3/uL Normal 0.00-0.44 [facility] Comment on above: Performed By: #### C P, CDP #### [facility] [address] [place], [facility] Substance Addiction Coordinator: Joelle Parker MD Eosinophils/100 WBC (Bld) 2 % Normal 1-4 [facility] Comment on above: Performed By: #### C P, CDP #### [facility] [address] [place] [address] Dr[place], [facility] Substance Addiction Coordinator: Joelle Parker MD Immature granulocytes/100 WBC (Bld) 0 % Normal 0 [facility] Comment on above: Performed By: #### C P, CDP #### [address] [place], [facility] Substance Addiction Coordinator: Joelle Parker MD Lymphocytes (Bld) [#/Vol] 0.64 10*3/uL Low 1.10-3.70 [facility] Comment on above: Performed By: #### C P, CDP #### [facility] [address] [place], [facility] Substance Addiction Coordinator: Joelle Parker MD Lymphocytes/100 WBC (Bld) 6 % Low 24-43 [facility] Comment on above: Performed By: #### C P, CDP #### [facility] [address] [place], [facility] Substance Addiction Coordinator: Joelle Parker MD Monocytes (Bld) [#/Vol] 0.11 10*3/uL Normal 0.10-1.20 [facility] Comment on above: Performed By: #### C P, CDP #### [facility] [address] [place] [address] [place] [place], [place] [id number] Substance Addiction Coordinator: Joelle Parker MD Monocytes/100 WBC (Bld) 1 % Low 3-12 [facility] Comment on above: Performed By: #### C P, CDP #### [address] [place] [address] Substance Addiction Coordinator: Joelle Parker MD Morphology Adis (Bld) [Interp] ANISOCYTOSIS Normal [facility] Comment on above: Result Comment: PRES ENT Performed By: #### C P, CDP #### [address] [place], [facility] Substance Addiction Coordinator: Joelle Parker MD Neutrophil (Seg) 91 % High 36-65 [facility] Comment on above: Performed By: #### C P, CDP #### [address] [place] [address] Substance Addiction Coordinator: Joelle Parker MD Erythrocyte distribution width (RBC) [Ratio] 16.4 % High 11.8-14.4 [facility] Comment on above: Performed By: #### C P, CDP #### [address] [place] [address] Substance Addiction Coordinator: Joelle Parker MD Hematocrit (Bld) [Volume fraction] 35.3 % Low 40.7-50.3 [facility] Comment on above: Performed By: #### C P, CDP #### [address] [place], [place] [id number] Substance Addiction Coordinator: Joelle Parker MD Hemoglobin (Bld) [Mass/Vol] 11.1 g/dL Low 13.0-17.0 [facility] Comment on above: Performed By: #### C P, CDP #### [facility] [address] [place] [address] Substance Addiction Coordinator: Joelle Parker MD MCH (RBC) [Entitic mass] 27.5 pg Normal 25.2-33.5 [facility] Comment on above: Performed By: #### C P, CDP #### [address] [place], [facility]83 Substance Addiction Coordinator: Joelle Parker MD MCHC (RBC) [Mass/Vol] 31.4 g/dL Normal 28.4-34.8 [facility] Comment on above: Performed By: #### C P, CDP #### [address] [place], [place] [id number] Substance Addiction Coordinator: Joelle Parker MD MCV (RBC) [Entitic vol] 87.6 fL Normal 82.6-102.9 [facility] Comment on above: Performed By: #### C P, CDP #### [address] [place], [place] [id number] Substance Addiction Coordinator: Joelle Parker MD NRBC Automated 0.0 per 100 WBC Normal 0.0 [facility] Comment on above: Performed By: #### C P, CDP #### [address] [place], [place] [address] Substance Addiction Coordinator: Joelle Parker MD Platelet mean volume (Bld) [Entitic vol] 8.7 fL Normal 8.1-13.5 [facility] Comment on above: Performed By: #### C P, CDP #### [address] [place] [address] Substance Addiction Coordinator: Joelle Parker MD Platelets (Bld) [#/Vol] 130 10*3/uL Low 138-453 [facility] Comment on above: Performed By: #### C P, CDP #### [address] [place], [place] [id number] Substance Addiction Coordinator: Joelle Parker MD RBC (Bld) [#/Vol] 4.03 10*6/uL Low 4.21-5.77 [facility] Comment on above: Performed By: #### C P, CDP #### [facility] [address] [place], [place] [id number] Substance Addiction Coordinator: Joelle Parker MD WBC (Bld) [#/Vol] 10.6 10*3/uL Normal 3.5-11.3 [facility] Comment on above: Performed By: #### C P, CDP #### [facility] [address] [place], [place] [id number] Substance Addiction Coordinator: Joelle Parker MD CT CHEST PULMONARY EMBOLISM W CONTRASTon 01-20-2022 CT CHEST PULMONARY EMBOLISM W CONTRAST EXAMINATION: CTA OF THE CHEST 01/20/2022 6:24 pm TECHNIQUE: CTA of the chest was performed after the administration of intravenous contrast. Multiplanar reformatted images are provided for review. MIP images are provided for review. Dose modulation, iterative reconstruction, and/or weight based adjustment of the mA/kV was utilized to reduce the radiation dose to as low as reasonably achievable. COMPARISON: Chest CT study from December 11, 2021. HISTORY: ORDERING SYSTEM PROVIDED HISTORY: Abnormal chest x-ray, elevated D-dimer, suspect pulmonary embolism TECHNOLOGIST PROVIDED HISTORY: Abnormal chest x-ray, elevated D-dimer, suspect pulmonary embolism FINDINGS: Pulmonary Arteries: The main pulmonary arteries an segmental and visualized subsegmental pulmonary artery branches are patent without intraluminal filling defect to suggest pulmonary embolism. Main pulmonary artery is normal in caliber. Mediastinum: Heart size is normal. The thoracic aorta and proximal great vessels are patent and of normal caliber. No pericardial effusion. No enlarged or suspicious axillary, hilar, or mediastinal lymphadenopathy. Lungs/pleura: The trachea and mainstem bronchi are widely patent. Aeration is improved. Scattered focal airspace opacities throughout the lungs bilaterally involving all lung zones, relatively symmetric in appearance and to a mild degree. No cavitary lesions. No discrete pulmonary nodule or mass. No pleural effusion or pneumothorax. Soft Tissues/Bones: No significant osseous abnormality. Upper Abdomen: The visualized upper abdomen is unremarkable. IMPRESSION: No evidence of pulmonary embolism or acute thoracic aortic abnormality. Improving aeration. Scattered airspace opacities are present throughout the lungs bilaterally to a mild degree, overall improved from prior, possibly representing residual pneumonia. Interpreted by: Amilcar Fang MD Signed by: Amilcar Fang MD 01/20/22 Final result Normal [facility] Comp Metabolic Pr/rfx MGon 0 01-20-2022 (cont.) Normal [facility] Comment on above: Result Comment: Aver age GFR for 40-49 years old: 99 mL/min/1.73sq m Chronic Kidney Disease: <60 mL/min/1.73sq m Kidney failure: <15 mL/min/1.73sq m eGFR calculated using average adult body mass. Additional eGFR calculator available at: http://www.Cherry/multiple_crcl_2012.htm Performed By: #### C P, CDP #### [facility] [address] [place] [address] [place] [address] Substance Addiction Coordinator: Joelle Parker MD Albumin [Mass/Vol] 3.3 g/dL Low 3.5-5.2 [facility] Comment on above: Performed By: #### C P, CDP #### [address] [place] [address] Substance Addiction Coordinator: Joelle Parker MD Albumin/Glob Ratio 0.7 Low 1.0-2.5 [facility] Comment on above: Performed By: #### C P, CDP #### [facility] [address] [place] [address] Substance Addiction Coordinator: Joelle Parker MD Alkaline Phos 113 U/L Normal 40-129 [facility] Comment on above: Performed By: #### C P, CDP #### [facility] [address] [place] [address] Substance Addiction Coordinator: Joelle Parker MD ALT [Catalytic activity/Vol] 21 U/L Normal 5-41 [facility] Comment on above: Performed By: #### C P, CDP #### [facility] [address] [place], [place] [id number] Substance Addiction Coordinator: Joelle Parker MD Anion gap [Moles/Vol] 7 mmol/L Low 9-17 [facility] Comment on above: Performed By: #### C P, CDP #### [facility] [address] [place], [place] [id number] Substance Addiction Coordinator: Joelle Parker MD AST [Catalytic activity/Vol] 18 U/L Normal <40 [facility] Comment on above: Performed By: #### C P, CDP #### [facility] [address] [place], [place] [id number] Substance Addiction Coordinator: Joelle Parker MD Bilirubin [Mass/Vol] 0.55 mg/dL Normal 0.3-1.2 [facility] Comment on above: Performed By: #### C P, CDP #### [facility] [address] [place], [place] [id number] Substance Addiction Coordinator: Joelle Parker MD BUN/CRE Ratio 24 High 9-20 [facility] Comment on above: Performed By: #### C P, CDP #### [facility] [address] [place], [place] [id number] Substance Addiction Coordinator: Joelle Parker MD Calcium [Mass/Vol] 9.1 mg/dL Normal 8.6-10.4 [facility] Comment on above: Performed By: #### C P, CDP #### [facility] [address] [place], [place] [id number] Substance Addiction Coordinator: Joelle Parker MD Chloride [Moles/Vol] 99 mmol/L Normal 98-107 [facility] Comment on above: Performed By: #### C P, CDP #### [facility] [address] [place], [place] [id number] Substance Addiction Coordinator: Joelle Parker MD CO2 [Moles/Vol] 27 mmol/L Normal 20-31 [facility] Comment on above: Performed By: #### C P, CDP #### [facility] [address] [place] [address] Substance Addiction Coordinator: Joelle Parker MD Creatinine [Mass/Vol] 0.70 mg/dL Normal 0.70-1.20 [facility] Comment on above: Performed By: #### C P, CDP #### [facility] [address] [place], [place] [id number] Substance Addiction Coordinator: Joelle Parker MD GFR, Amer >60 Normal >60 [facility] Comment on above: Performed By: #### C P, CDP #### [facility] [address] [place], [place] [id number] Substance Addiction Coordinator: Joelle Parker MD GFR,non Amer >60 Normal >60 [facility] Comment on above: Performed By: #### C P, CDP #### [facility] [address] [place] [address] Dr[address] [place], [place] [id number] Substance Addiction Coordinator: Joelle Parker MD Glucose [Mass/Vol] 104 mg/dL High 70-99 [facility] Comment on above: Performed By: #### C P, CDP #### [facility] [address] [place], [place] [id number] Substance Addiction Coordinator: Joelle Parker MD Potassium [Moles/Vol] 4.3 mmol/L Normal 3.7-5.3 [facility] Comment on above: Performed By: #### C P, CDP #### [facility] [address] [place], [place] [id number] Substance Addiction Coordinator: Joelle Parker MD Protein [Mass/Vol] 8.3 g/dL Normal 6.4-8.3 [facility] Comment on above: Performed By: #### C P, CDP #### [facility] [address] [place] [address] [place] [address] Substance Addiction Coordinator: Joelle Parker MD Sodium [Moles/Vol] 133 mmol/L Low 135-144 [facility] Comment on above: Performed By: #### C P, CDP #### [facility] [address] [place] [address] [address] [place], [place] [id number] Substance Addiction Coordinator: Joelle Parker MD Staging: Normal [facility] Comment on above: Result Comment: Stag e 1: Some kidney damage normal GFR Stage 2: Mild kidney damage GFR 60-89 Stage 3: Moderate kidney damage GFR 30-59 Stage 4: Severe kidney damage GFR 15-29 Stage 5: Severe kidney damage GFR <15 ESRD - chronic treatment by dialysis or transplant Performed By: #### C P, CDP #### [address] [place], [place] [id number] Substance Addiction Coordinator: Joelle Parker MD Urea nitrogen [Mass/Vol] 17 mg/dL Normal 6-20 [facility] Comment on above: Performed By: #### C P, CDP #### [address] [place] [address] Substance Addiction Coordinator: Joelle Parker MD D-Dimer Teston 01-20-2022 D-Dimer Test 2.69 mg/L FEU High 0.00-0.59 [facility] Comment on above: Result Comment: When combined with a low clinical probability, a D dimer value of <0.50 mg/L FEU is considered negative for DVT and PE (negative predictive value of 98%, sensitivity of 97%). If this test is not being used to help rule out DVT and PE, then the following reference range should be utilized: 0.00 - 0.59 mg/L FEU. The D-Dimer assay is intended for use as an aid in the diagnosis of venous thromboembolism (DVT and PE) and the results should be interpreted in conjunction with the patient's medical history, clinical presentation, and other findings. Elevated levels of D-dimer activity can be seen in any state of coagulation activation and is not recommended in patients with therapeutic dose anticoagulant therapy for >24 hours, fibrinolytic therapy within the previous 7 days, trauma or surgery within the previous 4 weeks, disseminated malignancies, aortic aneurysm, sepsis, severe infections, pneumonia, severe skin infections, liver cirrhosis, advanced age, coronary disease, diabetes, and . A very low percentage of patients with DVT may yield D-dimer results below the cutoff of 0.5 mg/L FEU. This is known to be more prevalent in patients with distal DVT. Performed By: #### D YFN #### [facility] [address] [place] [address] Substance Addiction Coordinator: Joelle Parker MD Flu A/B Ag Detectionon 01-20 Flu A/B Ag Detection Specimen Descriptio n .NASOPHARYNGEAL SWAB Direct Exam NEGATIVE for Influenza A + B antigens. PCR testing to confirm this result is available upon request. Specimen will be saved in the laboratory for 7 days. Please call [phone] if PCR testing is indicated. Report Status FINAL 01/20/2022 Normal [facility] Comment on above: Performed By: #### C P, CDP #### [facility] [address] [place] [address] Substance Addiction Coordinator: Joelle Parker MD LACTIC ACID, WHOLE BLOODon 0 01-20-2022 Interpretation and review of laboratory results Abnormal [facility] Lactic Acid, Whole Blood 2.5 mmol/L High 0.7 - 2.1 mmol/L [facility] - Chemistry and C hemistry - challengeon 01-20-2022 Hemoglobin.gastrointesti nal spec 1 Ql (Stl) 11.1 g/dL Low 13.0 - 17.0 g/dL [facility] Albumin [Mass/Vol] 3.3 g/dL Low 3.5 - 5.2 g/dL [facility] Albumin/Globulin [Mass ratio] 0.7 {ratio} Low [facility] ALP (Bld) [Catalytic activity/Vol] 113 U/L 40 - 129 U/L [facility] ALT [Catalytic activity/Vol] 21 U/L 5 - 41 U/L [facility] Anion gap [Moles/Vol] 7 mmol/L Low 9 - 17 mmol/L [facility] AST [Catalytic activity/Vol] 18 U/L <40 [facility] Bilirubin [Mass/Vol] 0.55 mg/dL 0.3 - 1 .2 mg/dL [facility] [employer] Calcium [Mass/Vol] 9.1 mg/dL 8.6 - 10. 4 mg/dL [facility] [employer] Chloride [Moles/Vol] 99 mmol/L 98 - 10 7 mmol/L [facility] [employer] CO2 [Moles/Vol] 27 mmol/L 20 - 31 mmol/L [facility] [employer] Creatinine [Mass/Vol] 0.7 mg/dL 0.70 - 1.20 mg/dL [facility] [employer] Free PSA/Total PSA [Mass fraction] 8.3 g/dL 6.4 - 8.3 g/dL [facility] GFR/1.73 sq M.predicted MDRD (S/P/Bld) [Vol rate/Area] [facility] Comment on above: Average GFR for 40-4 9 years old: 99 mL/min/1.73sq m Chronic Kidney Disease: <60 mL/min/1.73sq m Kidney failure: <15 mL/min/1.73sq m eGFR calculated using average adult body mass. Additional eGFR calculator available at: http://www.Cherry/multiple_crcl_2012.htm Stage 1: Some kidney damage normal GFR Stage 2: Mild kidney damage GFR 60-89 Stage 3: Moderate kidney damage GFR 30-59 Stage 4: Severe kidney damage GFR 15-29 Stage 5: Severe kidney damage GFR <15 ESRD - chronic treatment by dialysis or transplant Glucose [Mass/Vol] 104 mg/dL High 70 - 99 mg/dL [facility] Natriuretic peptide B (Bld) [Mass/Vol] 93 pg/mL <300 [facility] Comment on above: An age-independent cutoff point of 300 pg/ml has a 98% negative predictive value excluding acute heart failure. Potassium [Moles/Vol] 4.3 mmol/L 3.7 - 5.3 mmol/L [facility] Sodium [Moles/Vol] 133 mmol/L Low 135 - 144 mmol/L [facility] Urea nitrogen (BldV) [Mass/Vol] 17 mg/dL 6 - 20 mg/dL [facility] Urea nitrogen/Creatinine (Bld) [Mass ratio] 24 High [facility] Ketones Ql (U) Negative NEGATIVE [facility] th Laboratory - Hematology and Cell countson 01-20-2022 Basophils (Bld) [#/Vol] 0.00 10*3/uL [facility] Basophils/100 WBC (Bld) 0 % 0 - 2 % [facility] Eosinophils/100 WBC (Bld) 2 % 1 - 4 % [facility] Hematocrit (Bld) [Volume fraction] 35.3 % Low 40.7 - 50.3 % [facility] Immature granulocytes/100 WBC (Bld) 0 % 0 [facility] Lymphocytes/100 WBC (Bld) 6 % Low 24 - 43 % [facility] MCH (RBC) [Entitic mass] 27.5 pg 25. 2 - 33.5 pg [facility] MCHC (RBC) [Mass/Vol] 31.4 g/dL 28.4 - 34.8 g/dL [facility] MCV (RBC) [Entitic vol] 87.6 fL 82.6 - 102.9 fL [facility] Monocytes/100 WBC (Bld) 1 % Low 3 - 12 % [facility] Morphology Adis (Bld) [Interp] ANISOCYTOSIS PRESENT [facility] Platelet distribution width (Bld) [Ratio] 16.4 % High 11.8 - 14.4 % [facility] Platelet mean volume (Bld) [Entitic vol] 8.7 fL 8.1 - 13.5 fL [facility] Platelets (Bld) [#/Vol] 130 10*3/uL Low [facility] RBC (Bld) [#/Vol] 4.03 10*6/uL Low 4.21 - 5.7 7 m/uL [facility] Segmented neutrophils/100 WBC (Bld) 91 % High 36 - 65 % [facility] WBC (Bld) [#/Vol] 10.6 10*3/uL [facility] Laboratory - Microbiology an d Antimicrobial susceptibilityon 01-20-2022 SARS-CoV-2 (COVID-19) RNA CHARO+probe Ql (Unsp spec) Not detected Not Detected [facility] Comment on above: Rapid NAAT: The specimen is NEGATIVE for SARS-CoV-2, the novel coronavirus associated with COVID-19. The ID NOW COVID-19 assay is designed to detect the virus that causes COVID-19 in patients with signs and symptoms of infection who are suspected of COVID-19. An individual without symptoms of COVID-19 and who is not shedding SARS-CoV-2 virus would expect to have a negative (not detected) result in this assay. Negative results should be treated as presumptive and, if inconsistent with clinical signs and symptoms or necessary for patient management, should be tested with an alternative molecular assay. Negative results do not preclude SARS-CoV-2 infection and should not be used as the sole basis for patient management decisions. Fact sheet for Healthcare Providers: https://www.fda.gov/media/771953/download Fact sheet for Patients: https://www.fda.gov/media/194691/download Methodology: Is[facility] Nucleic Acid Amplification Laboratory - Urinalysison Leukocyte esterase Test strip Ql (U) Negative NEGATIVE [facility] Lactate, Sepsison 01-20-2022 Lactic Acid, Sepsis 2.6 mmol/L High 0.5-1.9 [facility] Comment on above: Performed By: #### C P, CDP #### [address] [place] [address] Substance Addiction Coordinator: Joelle Parker MD Lactic Acid, Sepsis 1.7 mmol/L Normal 0.5-1.9 [facility] Comment on above: Performed By: #### A LCB #### [address] [place] [address] Substance Addiction Coordinator: Joelle Parker MD Lactic Acid, Sepsis 1.3 mmol/L Normal 0.5-1.9 [facility] Comment on above: Performed By: #### C P, CDP #### [address] [place] [id number] Substance Addiction Coordinator: Joelle Parker MD Lactic Acid, Sepsis 1.9 mmol/L Normal 0.5-1.9 [facility] Comment on above: Performed By: #### C P, CDP #### [address] [place] [address] Substance Addiction Coordinator: Joelle Parker MD No Panel Informationon 01-20 Interpretation and review of laboratory results Abnormal [facility] Lactic Acid, Sepsis 2.6 mmol/L High 0.5 - 1. 9 mmol/L [facility] No evidence of pulmonary embolism or acute thoracic aortic abnormality. Improving aeration. Scattered airspace opacities are present throughout the lungs bilaterally to a mild degree, overall improved from prior, possibly representing residual pneumonia. [facility] CONSOLIDATED EXAMINATION: CTA OF THE CHEST 01/20/2022 6:24 pm TECHNIQUE: CTA of the chest was performed after the administration of intravenous contrast. Multiplanar reformatted images are provided for review. MIP images are provided for review. Dose modulation, iterative reconstruction, and/or weight based adjustment of the mA/kV was utilized to reduce the radiation dose to as low as reasonably achievable. COMPARISON: Chest CT study from December 11, 2021. HISTORY: ORDERING SYSTEM PROVIDED HISTORY: Abnormal chest x-ray, elevated D-dimer, suspect pulmonary embolism TECHNOLOGIST PROVIDED HISTORY: Abnormal chest x-ray, elevated D-dimer, suspect pulmonary embolism FINDINGS: Pulmonary Arteries: The main pulmonary arteries an segmental and visualized subsegmental pulmonary artery branches are patent without intraluminal filling defect to suggest pulmonary embolism. Main pulmonary artery is normal in caliber. Mediastinum: Heart size is normal. The thoracic aorta and proximal great vessels are patent and of normal caliber. No pericardial effusion. No enlarged or suspicious axillary, hilar, or mediastinal lymphadenopathy. Lungs/pleura: The trachea and mainstem bronchi are widely patent. Aeration is improved. Scattered focal airspace opacities throughout the lungs bilaterally involving all lung zones, relatively symmetric in appearance and to a mild degree. No cavitary lesions. No discrete pulmonary nodule or mass. No pleural effusion or pneumothorax. Soft Tissues/Bones: No significant osseous abnormality. Upper Abdomen: The visualized upper abdomen is unremarkable. [facility] Amilcar Fang MD - 01/20/2022 EXAMINATION: CTA OF THE CHEST 01/20/2022 6:24 pm TECHNIQUE: CTA of the chest was performed after the administration of intravenous contrast. Multiplanar reformatted images are provided for review. MIP images are provided for review. Dose modulation, iterative reconstruction, and/or weight based adjustment of the mA/kV was utilized to reduce the radiation dose to as low as reasonably achievable. COMPARISON: Chest CT study from December 11, 2021. HISTORY: ORDERING SYSTEM PROVIDED HISTORY: Abnormal chest x-ray, elevated D-dimer, suspect pulmonary embolism TECHNOLOGIST PROVIDED HISTORY: Abnormal chest x-ray, elevated D-dimer, suspect pulmonary embolism FINDINGS: Pulmonary Arteries: The main pulmonary arteries an segmental and visualized subsegmental pulmonary artery branches are patent without intraluminal filling defect to suggest pulmonary embolism. Main pulmonary artery is normal in caliber. Mediastinum: Heart size is normal. The thoracic aorta and proximal great vessels are patent and of normal caliber. No pericardial effusion. No enlarged or suspicious axillary, hilar, or mediastinal lymphadenopathy. Lungs/pleura: The trachea and mainstem bronchi are widely patent. Aeration is improved. Scattered focal airspace opacities throughout the lungs bilaterally involving all lung zones, relatively symmetric in appearance and to a mild degree. No cavitary lesions. No discrete pulmonary nodule or mass. No pleural effusion or pneumothorax. Soft Tissues/Bones: No significant osseous abnormality. Upper Abdomen: The visualized upper abdomen is unremarkable. IMPRESSION: No evidence of pulmonary embolism or acute thoracic aortic abnormality. Improving aeration. Scattered airspace opacities are present throughout the lungs bilaterally to a mild degree, overall improved from prior, possibly representing residual pneumonia. [employer] Work Phone: Radiology Study observation (narrative) [employer] [facility] Work Phone: D-Dimer, Quant 2.69 High [facility] Comment on above: When combined with a low clinical probability, a D dimer value of <0.50 mg/L FEU is considered negative for DVT and PE (negative predictive value of 98%, sensitivity of 97%). If this test is not being used to help rule out DVT and PE, then the following reference range should be utilized: 0.00 - 0.59 mg/L FEU. The D-Dimer assay is intended for use as an aid in the diagnosis of venous thromboembolism (DVT and PE) and the results should be interpreted in conjunction with the patient's medical history, clinical presentation, and other findings. Elevated levels of D-dimer activity can be seen in any state of coagulation activation and is not recommended in patients with therapeutic dose anticoagulant therapy for >24 hours, fibrinolytic therapy within the previous 7 days, trauma or surgery within the previous 4 weeks, disseminated malignancies, aortic aneurysm, sepsis, severe infections, pneumonia, severe skin infections, liver cirrhosis, advanced age, coronary disease, diabetes, and . A very low percentage of patients with DVT may yield D-dimer results below the cutoff of 0.5 mg/L FEU. This is known to be more prevalent in patients with distal DVT. Interpretation and review of laboratory results Abnormal [facility] Poor data quality, interpretation may be adversely affected Sinus tachycardia Otherwise normal ECG When compared with ECG of 10-JAN-2022 20:20, No significant change was found Confirmed by Valery Canela MD ([id number]) on 01/20/2022 6:02:54 PM [facility] RADI[facility] Valery Canela MD - 01/20/2022 Poor data quality, interpretation may be adversely affected Sinus tachycardia Otherwise normal ECG When compared with ECG of 10-JAN-2022 20:20, No significant change was found Confirmed by Valery Canela MD ([id number]) on 01/20/2022 6:02:54 PM [facility] Work Phone: Lactic Acid, Sepsis 1.7 mmol/L 0.5 - 1. 9 mmol/L [facility] Lactic Acid, Sepsis 1.3 mmol/L 0.5 - 1. 9 mmol/L [facility] Absolute Eos # 0.21 [facility] th Absolute Immature Granulocyte 0.00 [facility] Absolute Lymph # 0.64 Low [facility] Absolute Kings [facility]11 [facility] Interpretation and review of laboratory results Abnormal [facility] NRBC Automated 0.0 0.0 per 100 WBC [facility] Segs Absolute 9.64 [facility] GFR >60 >60 mL/min [facility] GFR Non- >60 >60 mL/min [facility] Interpretation and review of laboratory results Abnormal [facility] Troponin, High Sensitivity <6 0 - 22 ng/L [facility] Comment on above: High Sensitivity Troponin values cannot be compared with other Troponin methodologies. Patients with high levels of Biotin oral intake (i.e >5mg/day) may have falsely decreased Troponin levels. Samples collected within 8 hours of biotin intake may require additional information for diagnosis. [facility] - [facility] Bacteria, UA 1+ Abnormal None [facility] [employer] Epithelial Cells UA 0 TO 2 [facility] Interpretation and review of laboratory results Abnormal [facility] Mucus, UA 1+ Abnormal None [facility] RBC, UA 50 TO 100 [facility] WBC, UA None [facility] Bilirubin Urine Negative [facility]IVE [facility], UA Yellow Yellow [facility] Glucose, Ur Negative NEGATIVE [facility] Interpretation and review of laboratory results Abnormal [facility] Nitrite, Urine Negative NEGATIVE [facility] th pH, UA 7.5 [facility] Protein, UA Negative NEGATIVE [facility] Specific [place], UA 1.025 High [facility] Turbidity UA Clear Clear [facility] Urine Hgb 3+ Abnormal NEGATIVE [facility] Urobilinogen, Urine Normal Normal [facility] Lactic Acid, Sepsis 1.9 mmol/L 0.5 - 1. 9 mmol/L [facility] Direct Exam NEGATIVE for Influenza A + B antigens. PCR testing to confirm this result is available upon request. Specimen will be saved in the laboratory for 7 days. Please call [phone] if PCR testing is indicated. [facility] Specimen Description .NASOPHARYNGEAL SWAB [facility] Specimen Description .NASOPHARYNGEAL SWAB [facility] Diffuse interstitial opacities may represent mild edema or atypical infection. [facility] CONSOLIDATED EXAMINATION: ONE XRAY VIEW OF THE CHEST 01/20/2022 2:28 pm COMPARISON: 12/19/2021 HISTORY: ORDERING SYSTEM PROVIDED HISTORY: History for septic emboli, right-sided heart endocarditis TECHNOLOGIST PROVIDED HISTORY: History for septic emboli, right-sided heart endocarditis FINDINGS: The cardiomediastinal silhouette is unchanged. Intervally removed right upper extremity PICC. Scattered interstitial opacities appear mildly worsened. Nodular consolidations appear intervally improved. No large pleural effusion or pneumothorax identified. Osseous structures are grossly unchanged. [facility] Miky Campbell DO - 01/20/2022 EXAMINATION: ONE XRAY VIEW OF THE CHEST 01/20/2022 2:28 pm COMPARISON: 12/19/2021 HISTORY: ORDERING SYSTEM PROVIDED HISTORY: History for septic emboli, right-sided heart endocarditis TECHNOLOGIST PROVIDED HISTORY: History for septic emboli, right-sided heart endocarditis FINDINGS: The cardiomediastinal silhouette is unchanged. Intervally removed right upper extremity PICC. Scattered interstitial opacities appear mildly worsened. Nodular consolidations appear intervally improved. No large pleural effusion or pneumothorax identified. Osseous structures are grossly unchanged. IMPRESSION: Diffuse interstitial opacities may represent mild edema or atypical infection. [employer] Work Phone: Radiology Study observation (narrative) [employer] Work Phone: No Panel InformationOrdered By: Amilcar Fang on 01-20-2022 [employer] Phone: No Panel InformationOrdered By: Valery Canela on 01-20-2022 Atrial Rate 133 BPM [employer] Work Phone: P [place] 54 degrees [employer] Work Phone: P-R Interval 122 ms [employer] Work Phone: Q-T Interval 288 ms [employer] Work Phone: QRS Duration 76 ms [employer] Work Phone: QTc Calculation (Bazett) 428 ms [employer] Work Phone: R [place] 78 degrees [employer] Work Phone: T [place] 61 degrees [employer] Work Phone: Ventricular Rate 133 BPM [employer] [facility] Work Phone: [employer] Work Phone: No Panel InformationOrdered By: Miky Campbell on 01-20-2022 [employer] Phone: [id number] 01-20-2022 SARS-CoV-2 (COVID-19) RNA CHARO+probe Ql (Unsp spec) Not detected Normal [facility] Comment on above: Result Comment: Rapid NAAT: The specimen is NEGATIVE for SARS-CoV-2, the novel coronavirus associated with COVID-19. The ID NOW COVID-19 assay is designed to detect the virus that causes COVID-19 in patients with signs and symptoms of infection who are suspected of COVID-19. An individual without symptoms of COVID-19 and who is not shedding SARS-CoV-2 virus would expect to have a negative (not detected) result in this assay. Negative results should be treated as presumptive and, if inconsistent with clinical signs and symptoms or necessary for patient management, should be tested with an alternative molecular assay. Negative results do not preclude SARS-CoV-2 infection and should not be used as the sole basis for patient management decisions. Fact sheet for Healthcare Providers: https://www.fda.gov/media/214863/download Fact sheet for Patients: https://www.fda.gov/media/888822/download Methodology: Isothermal Nucleic Acid Amplification Performed By: #### C OVRB #### [facility] [address] [place] [address] [place] [address] Substance Addiction Coordinator: Joelle Parker MD Troponinon 01-20-2022 Troponin, High Sens <6 Normal 0-22 [facility] Comment on above: Result Comment: High Sensitivity Troponin values cannot be compared with other Troponin methodologies. Patients with high levels of Biotin oral intake (i.e >5mg/day) may have falsely decreased Troponin levels. Samples collected within 8 hours of biotin intake may require additional information for diagnosis. Performed By: #### C P, CDP #### [facility] [address] [place] [address] Dr[address] [place], [place] [id number] Substance Addiction Coordinator: Joelle Parker MD Urinalysis, Routineon 2021 Bilirubin, SemiQt,Ur Negative Normal NEG [facility] Comment on above: Performed By: #### C P, CDP #### [address] [place], [place] [id number] Substance Addiction Coordinator: Joelle Parker MD Blood, Urine 3+ Abnormal NEG [facility] Comment on above: Performed By: #### C P, CDP #### [facility] [address] [place] [address] [place] [address] Substance Addiction Coordinator: Joelle Parker MD Clarity (U) Clear Normal CLEAR [facility] Comment on above: Performed By: #### C P, CDP #### [address] [place] [address] Substance Addiction Coordinator: Joelle Parker MD Color (U) Yellow Normal YEL [facility] Comment on above: Performed By: #### C P, CDP #### [facility] [address] [place] [address] [place] [address] Substance Addiction Coordinator: Joelle Parker MD Glucose Ql (U) Negative Normal NEG [facility] Comment on above: Performed By: #### C P, CDP #### [address] [place], [facility] Substance Addiction Coordinator: Joelle Parker MD Ketones Ql (U) Negative Normal NEG [facility] Comment on above: Performed By: #### C P, CDP #### [address] [place], [place] [address] Substance Addiction Coordinator: Joelle Parker MD Leukocyte esterase Test strip Ql (U) Negative Normal NEG [facility] Comment on above: Performed By: #### C P, CDP #### [address] [place], [place] [address] Substance Addiction Coordinator: Joelle Parker MD Nitrite,Ur Negative Normal [facility] Comment on above: Performed By: #### C P, CDP #### [address] [place], [facility] Substance Addiction Coordinator: Joelle Parker MD PH,Ur 7.5 Normal 5.0-9.0 [facility] Comment on above: Performed By: #### C P, CDP #### [address] [place], [facility] Substance Addiction Coordinator: Joelle Parker MD Protein Ql (U) Negative Normal NEG [facility] Comment on above: Performed By: #### C P, CDP #### [address] [place], [facility]83 Substance Addiction Coordinator: Joelle Parker MD Spec. [place],Ur 1.025 High 1.010-1.020 [facility] Comment on above: Performed By: #### C P, CDP #### [facility] [address] [place], [place] [id number] Substance Addiction Coordinator: Joelle Parker MD Urobilinogen,Ur Normal Normal NORM [facility] Comment on above: Performed By: #### C P, CDP #### [facility] [address] [place], [facility] Substance Addiction Coordinator: Joelle Parker MD Urinalysis,Microon 2 ----- Normal [facility] Comment on above: Performed By: #### C P, CDP #### [facility] [address] [place], [facility] Substance Addiction Coordinator: Joelle Parker MD Bacteria 1+ Abnormal NONE [facility] Comment on above: Performed By: #### C P, CDP #### [facility] [address] [place], [facility] Substance Addiction Coordinator: Joelle Parker MD Epithelial cells LM Ql (Urine sed) 0 TO 2 Normal 0-5 [facility] Comment on above: Performed By: #### C P, CDP #### [facility] [address] [place], [facility]83 Substance Addiction Coordinator: Joelle Parker MD Mucus Strands 1+ Abnormal NONE [facility] Comment on above: Performed By: #### C P, CDP #### [facility] [address] [place], [facility]83 Substance Addiction Coordinator: Joelle Parker MD Urine RBC's 50 TO 100 Normal 0-2 [facility] Comment on above: Performed By: #### C P, CDP #### [facility] [address] [place] [address] Substance Addiction Coordinator: Joelle Parker MD Urine WBC's None Normal 0-5 [facility] Comment on above: Performed By: #### C P, CDP #### [facility] [address] [place] [address] Substance Addiction Coordinator: Joelle Parker MD XR CHEST PORTABLEon 01-21-20 XR CHEST PORTABLE EXAMINATION: ONE XRAY VIEW OF THE CHEST 01/20/2022 2:28 pm COMPARISON: 12/19/2021 HISTORY: ORDERING SYSTEM PROVIDED HISTORY: History for septic emboli, right-sided heart endocarditis TECHNOLOGIST PROVIDED HISTORY: History for septic emboli, right-sided heart endocarditis FINDINGS: The cardiomediastinal silhouette is unchanged. Intervally removed right upper extremity PICC. Scattered interstitial opacities appear mildly worsened. Nodular consolidations appear intervally improved. No large pleural effusion or pneumothorax identified. Osseous structures are grossly unchanged. IMPRESSION: Diffuse interstitial opacities may represent mild edema or atypical infection. Interpreted by: Miky Campbell DO Signed by: Miky Campbell DO 01/20/22 Final result Normal [facility] Acetaminophenon 01-10-2022 Acetaminophen [Mass/Vol] ug/mL Low 10-30 [facility] Comment on above: Performed By: #### A LCB #### [facility] [address] [place], [place] [id number] Substance Addiction Coordinator: Joelle Parker MD Acetaminophen Levelon 2021 Acetaminophen Level <5 Low 10 - 30 ug/mL [facility] Interpretation and review of laboratory results Abnormal [facility] CBC with Auto Differentialon 01-10-2022 Absolute Eos # 0.19 [facility] th Absolute Immature Granulocyte 0.09 [facility] Absolute Lymph # 0.97 Low [facility] alth Absolute Kings # 0.66 [facility] Basophils (Bld) [#/Vol] 0.03 10*3/uL [facility] Basophils/100 WBC (Bld) 0 % 0 - 2 % [facility] Eosinophils/100 WBC (Bld) 2 % 1 - 4 % [facility] Hematocrit (Bld) [Volume fraction] 28.4 % Low 40.7 - 50.3 % [facility] Hemoglobin.gastrointesti nal spec 1 Ql (Stl) 8.8 g/dL Low 13.0 - 17.0 g/dL [facility] Immature granulocytes/100 WBC (Bld) 1 % High 0 [facility] Interpretation and review of laboratory results Abnormal [facility] Lymphocytes/100 WBC (Bld) 11 % Low 24 - 43 % [facility] MCH (RBC) [Entitic mass] 27.7 pg 25. 2 - 33.5 pg [facility] MCHC (RBC) [Mass/Vol] 31.0 g/dL 28.4 - 34.8 g/dL [facility] MCV (RBC) [Entitic vol] 89.3 fL 82.6 - 102.9 fL [facility] Monocytes/100 WBC (Bld) 8 % 3 - 12 % M [facility] NRBC Automated 0.0 0.0 per 100 WBC [facility] Platelet distribution width (Bld) [Ratio] 14.3 % 11.8 - 14.4 % [facility] Platelet mean volume (Bld) [Entitic vol] 9.5 fL 8.1 - 13.5 fL [facility] Platelets (Bld) [#/Vol] 305 10*3/uL [facility] RBC (Bld) [#/Vol] 3.18 10*6/uL Low 4.21 - 5.7 7 m/uL [facility] Segmented neutrophils/100 WBC (Bld) 78 % High 36 - 65 % [facility] Segs Absolute 6.79 [facility] h WBC (Bld) [#/Vol] 8.7 10*3/uL [facility] CBC with Diffon 01-10-2022 Abs. Basophil 0.03 k/uL Normal 0.00-0.20 [facility] Comment on above: Performed By: #### A LCB #### [facility] [address] [place] [address] [place] [address] Substance Addiction Coordinator: Joelle Parker MD Abs.Imm.Granulocyte 0.09 k/uL Normal 0.00-0.30 [facility] Comment on above: Performed By: #### A LCB #### [facility] [address] [place] [address] Substance Addiction Coordinator: Joelle Parker MD Abs.Neutrophil (Seg) 6.79 k/uL Normal 1.50-8.10 [facility] Comment on above: Performed By: #### A LCB #### [facility] [address] [place] [id number] Substance Addiction Coordinator: Joelle Parker MD Basophils/100 WBC (Bld) 0 % Normal 0-2 [facility] Comment on above: Performed By: #### A LCB #### [facility] [address] [place], [place] [id number] Substance Addiction Coordinator: Joelle Parker MD Eosinophils (Bld) [#/Vol] 0.19 10*3/uL Normal 0.00-0.44 [facility] Comment on above: Performed By: #### A LCB #### [facility] [address] [place] [id number] Substance Addiction Coordinator: Joelle Parker MD Eosinophils/100 WBC (Bld) 2 % Normal 1-4 [facility] Comment on above: Performed By: #### A LCB #### [address] [place], [place] 1242183 Substance Addiction Coordinator: Joelle Parker MD Erythrocyte distribution width (RBC) [Ratio] 14.3 % Normal 11.8-14.4 [facility] Comment on above: Performed By: #### A LCB #### [address] [place], [place] 6576383 Substance Addiction Coordinator: Joelle Parker MD Hematocrit (Bld) [Volume fraction] 28.4 % Low 40.7-50.3 [facility] Comment on above: Performed By: #### A LCB #### [address] [place], [place] 1205183 Substance Addiction Coordinator: Joelle Parker MD Hemoglobin (Bld) [Mass/Vol] 8.8 g/dL Low 13.0-17.0 [facility] Comment on above: Performed By: #### A LCB #### [address] [place] [address] Substance Addiction Coordinator: Joelle Parker MD Immature granulocytes/100 WBC (Bld) 1 % High 0 [facility] Comment on above: Performed By: #### A LCB #### [facility] [address] [place] [address] Substance Addiction Coordinator: Joelle Parker MD Lymphocytes (Bld) [#/Vol] 0.97 10*3/uL Low 1.10-3.70 [facility] Comment on above: Performed By: #### A LCB #### [facility] [address] [place] [address] Substance Addiction Coordinator: Joelle Parker MD Lymphocytes/100 WBC (Bld) 11 % Low 24-43 [facility] Comment on above: Performed By: #### A LCB #### [facility] [address] [place] [address] Substance Addiction Coordinator: Joelle Parker MD MCH (RBC) [Entitic mass] 27.7 pg Normal 25.2-33.5 [facility] Comment on above: Performed By: #### A LCB #### [address] [place] [address] Substance Addiction Coordinator: Joelle Parker MD MCHC (RBC) [Mass/Vol] 31.0 g/dL Normal 28.4-34.8 [facility] Comment on above: Performed By: #### A LCB #### [address] [place], [place] 9030283 Substance Addiction Coordinator: Joelle Parker MD MCV (RBC) [Entitic vol] 89.3 fL Normal 82.6-102.9 [facility] Comment on above: Performed By: #### A LCB #### [address] [place] [address] Substance Addiction Coordinator: Joelle Parker MD Monocytes (Bld) [#/Vol] 0.66 10*3/uL Normal 0.10-1.20 [facility] Comment on above: Performed By: #### A LCB #### [facility] [address] [place], [place] 0823383 Substance Addiction Coordinator: Joelel Parker MD Monocytes/100 WBC (Bld) 8 % Normal 3-12 [facility] Comment on above: Performed By: #### A LCB #### [facility] [address] [place], [place] [address]3 Substance Addiction Coordinator: Joelle Parker MD Neutrophil (Seg) 78 % High 36-65 [facility] Comment on above: Performed By: #### A LCB #### [address] [place], [place] 6807383 Substance Addiction Coordinator: Joelle Parker MD NRBC Automated 0.0 per 100 WBC Normal 0.0 [facility] Comment on above: Performed By: #### A LCB #### [address] [place], [facility]83 Substance Addiction Coordinator: Joelle Parker MD Platelet mean volume (Bld) [Entitic vol] 9.5 fL Normal 8.1-13.5 [facility] Comment on above: Performed By: #### A LCB #### [address] [place], [place] 3436183 Substance Addiction Coordinator: Joelle Parker MD Platelets (Bld) [#/Vol] 305 10*3/uL Normal 138-453 [facility] Comment on above: Performed By: #### A LCB #### [facility] [address] [place] [address] Dr. [place], [place] 0046983 Substance Addiction Coordinator: Joelle Parker MD RBC (Bld) [#/Vol] 3.18 10*6/uL Low 4.21-5.77 [facility] Comment on above: Performed By: #### A LCB #### [address] [place] [address] Substance Addiction Coordinator: Joelle Parker MD WBC (Bld) [#/Vol] 8.7 10*3/uL Normal 3.5-11.3 [facility] Comment on above: Performed By: #### A LCB #### [facility] [address] [place] [address] Substance Addiction Coordinator: Joelle Parker MD Comp Metabolic Profon 2021 (cont.) Normal [facility] Comment on above: Result Comment: Aver age GFR for 40-49 years old: 99 mL/min/1.73sq m Chronic Kidney Disease: <60 mL/min/1.73sq m Kidney failure: <15 mL/min/1.73sq m eGFR calculated using average adult body mass. Additional eGFR calculator available at: http://www.Cherry/multiple_crcl_2012.htm Performed By: #### A LCB #### [facility] [address] [place] [address] Substance Addiction Coordinator: Joelle Parker MD Albumin [Mass/Vol] 2.7 g/dL Low 3.5-5.2 [facility] Comment on above: Performed By: #### A LCB #### [facility] [address] [place] [address] Substance Addiction Coordinator: Joelle Parker MD Albumin/Glob Ratio 0.5 Low 1.0-2.5 [facility] Comment on above: Performed By: #### A LCB #### [facility] [address] [place] [address] Substance Addiction Coordinator: Joelle Parker MD Alkaline Phos 138 U/L High 40-129 [facility] Comment on above: Performed By: #### A LCB #### [facility] [address] [place] [address] Substance Addiction Coordinator: Joelle Parker MD ALT [Catalytic activity/Vol] 21 U/L Normal 5-41 [facility] Comment on above: Performed By: #### A LCB #### [facility] [address] [place], [place] [phone] Substance Addiction Coordinator: Joelle Parker MD Anion gap [Moles/Vol] 8 mmol/L Low 9-17 [facility] Comment on above: Performed By: #### A LCB #### [facility] [address] [place], [place] 2035683 Substance Addiction Coordinator: Joelle Parker MD AST [Catalytic activity/Vol] 26 U/L Normal <40 [facility] Comment on above: Performed By: #### A LCB #### [facility] [address] [place], [place] 5322383 Substance Addiction Coordinator: Joelle Parker MD Bilirubin [Mass/Vol] 0.20 mg/dL Low 0.3-1.2 [facility] Comment on above: Performed By: #### A LCB #### [facility] [address] [place], [place] 2216283 Substance Addiction Coordinator: Joelle Parker MD BUN/CRE Ratio 16 Normal 9-20 [facility] Comment on above: Performed By: #### A LCB #### [facility] [address] [place], [place] 6534883 Substance Addiction Coordinator: Joelle Parker MD Calcium [Mass/Vol] 9.0 mg/dL Normal 8.6-10.4 [facility] Comment on above: Performed By: #### A LCB #### [facility] [address] [place], [place] 1079883 Substance Addiction Coordinator: Joelle Parker MD Chloride [Moles/Vol] 101 mmol/L Normal 98-107 [facility] Comment on above: Performed By: #### A LCB #### [facility] [address] [place], [place] 1918583 Substance Addiction Coordinator: Joelle Parker MD CO2 [Moles/Vol] 26 mmol/L Normal 20-31 [facility] Comment on above: Performed By: #### A LCB #### [facility] [address] [place], [place] 0669083 Substance Addiction Coordinator: Joelle Parker MD Creatinine [Mass/Vol] 0.80 mg/dL Normal 0.70-1.20 [facility] Comment on above: Performed By: #### A LCB #### [facility] [address] [place], [place] 1715083 Substance Addiction Coordinator: Joelle Parker MD GFR, Amer >60 Normal >60 [facility] Comment on above: Performed By: #### A LCB #### [facility] [address] [place], [place] [address]83 Substance Addiction Coordinator: Joelle Parker MD GFR,non Amer >60 Normal >60 [facility] Comment on above: Performed By: #### A LCB #### [facility] [address] [place], [place] 3689283 Substance Addiction Coordinator: Joelle Parker MD Glucose [Mass/Vol] 98 mg/dL Normal 70-99 [facility] Comment on above: Performed By: #### A LCB #### [facility] [address] [place], [place] 1870883 Substance Addiction Coordinator: Joelle Parker MD Potassium [Moles/Vol] 4.2 mmol/L Normal 3.7-5.3 [facility] Comment on above: Performed By: #### A LCB #### [facility] [address] [place], [place] 2464683 Substance Addiction Coordinator: Joelle Parker MD Protein [Mass/Vol] 8.1 g/dL Normal 6.4-8.3 [facility] Comment on above: Performed By: #### A LCB #### [facility] [address] [place], [place] 2366583 Substance Addiction Coordinator: Joelle Parker MD Sodium [Moles/Vol] 135 mmol/L Normal 135-144 [facility] Comment on above: Performed By: #### A LCB #### [facility] [address] [place] [address] Substance Addiction Coordinator: Joelle Parker MD Staging: Normal [facility] Comment on above: Result Comment: Stag e 1: Some kidney damage normal GFR Stage 2: Mild kidney damage GFR 60-89 Stage 3: Moderate kidney damage GFR 30-59 Stage 4: Severe kidney damage GFR 15-29 Stage 5: Severe kidney damage GFR <15 ESRD - chronic treatment by dialysis or transplant Performed By: #### A LCB #### [facility] [address] [place] [address] Substance Addiction Coordinator: Joelle Parker MD Urea nitrogen [Mass/Vol] 13 mg/dL Normal 6-20 [facility] Comment on above: Performed By: #### A LCB #### [facility] [address] [place] [address] Substance Addiction Coordinator: Joelle Parker MD Comprehensive Metabolic Pane [facility] 01-10-2022 Albumin [Mass/Vol] 2.7 g/dL Low 3.5 - 5.2 g/dL [facility] Albumin/Globulin [Mass ratio] 0.5 {ratio} Low [facility] ALP (Bld) [Catalytic activity/Vol] 138 U/L High 40 - 129 U/L [facility] ALT [Catalytic activity/Vol] 21 U/L 5 - 41 U/L [facility] Anion gap [Moles/Vol] 8 mmol/L Low 9 - 17 mmol/L [facility] AST [Catalytic activity/Vol] 26 U/L <40 [facility] Bilirubin [Mass/Vol] 0.20 mg/dL Low 0.3 - 1 .2 mg/dL [facility] Calcium [Mass/Vol] 9.0 mg/dL 8.6 - 10. 4 mg/dL [facility] Chloride [Moles/Vol] 101 mmol/L 98 - 10 7 mmol/L [facility] CO2 [Moles/Vol] 26 mmol/L 20 - 31 mmol/L [facility] Creatinine [Mass/Vol] 0.8 mg/dL 0.70 - 1.20 mg/dL [facility] Free PSA/Total PSA [Mass fraction] 8.1 g/dL 6.4 - 8.3 g/dL [facility] GFR >60 >60 mL/min [facility] GFR Non- >60 >60 mL/min [facility] Glucose [Mass/Vol] 98 mg/dL 70 - 99 mg/dL [facility] Potassium [Moles/Vol] 4.2 mmol/L 3.7 - 5.3 mmol/L [facility] Sodium [Moles/Vol] 135 mmol/L 135 - 144 mmol/L [facility] Urea nitrogen (BldV) [Mass/Vol] 13 mg/dL 6 - 20 mg/dL [facility] Urea nitrogen/Creatinine (Bld) [Mass ratio] 16 [facility] Ethanolon 01-10-2022 Ethanol [Mass/Vol] mg/dL <10 mg/dL [facility] Ethanol percent <0.010 <0.010 [facility] Ethanol Alcoholon 01-10-2022 Ethanol [Mass/Vol] mg/dL Normal <10 [facility] Comment on above: Performed By: #### A LCB #### [facility] [address] [place] [address] Substance Addiction Coordinator: Joelle Parker MD Ethanol percent <0.010 Normal <0.010 [facility] Comment on above: Performed By: #### A LCB #### [facility] [address] [place] [address] Substance Addiction Coordinator: Joelle Parker MD Laboratory - Chemistry and C hemistry - challengeon 01-10-2022 GFR/1.73 sq M.predicted MDRD (S/P/Bld) [Vol rate/Area] [facility] Comment on above: Average GFR for 40-4 9 years old: 99 mL/min/1.73sq m Chronic Kidney Disease: <60 mL/min/1.73sq m Kidney failure: <15 mL/min/1.73sq m eGFR calculated using average adult body mass. Additional eGFR calculator available at: http://www.globalrph.Primo Round/multiple_crcl_2011.htm Stage 1: Some kidney damage normal GFR Stage 2: Mild kidney damage GFR 60-89 Stage 3: Moderate kidney damage GFR 30-59 Stage 4: Severe kidney damage GFR 15-29 Stage 5: Severe kidney damage GFR <15 ESRD - chronic treatment by dialysis or transplant No Panel Informationon 01-10 Interpretation and review of laboratory results Abnormal [facility] Salicylateon 01-10-2022 Salicylate <1 Low 3-10 [facility] Comment on above: Performed By: #### B C #### [facility] [address] [place] [address] Substance Addiction Coordinator: Joelle Parker MD Salicylate Lvl <1 Low 3 - 10 mg/dL [facility] XR FOOT LEFT (MIN 3 VIEWS)on 01-10-2022 XR FOOT LEFT (MIN 3 VIEWS) EXAMINATION: THREE XRAY VIEWS OF THE LEFT FOOT 01/10/2022 7:12 pm COMPARISON: None. HISTORY: ORDERING SYSTEM PROVIDED HISTORY: possible infection, especially heel TECHNOLOGIST PROVIDED HISTORY: possible infection, especially heel FINDINGS: No acute fracture or dislocation. Interphalangeal and metatarsophalangeal joint spaces are preserved. There is a soft tissue defect over the posterior aspect of the ankle. There is soft tissue swelling and increased density surrounding this defect. There is no definite soft tissue gas. No underlying bony changes to suggest osteomyelitis. IMPRESSION: Soft tissue defect over the posterior aspect of the ankle with surrounding soft tissue swelling and likely an effusion in Kager's fat pad. No underlying osseous findings to suggest osteomyelitis. Cannot exclude soft tissue infection Interpreted by: Roscoe Ferrer Signed by: Roscoe Ferrer 01/10/22 Final result Normal [facility] Soft tissue defect over the posterior aspect of the ankle with surrounding soft tissue swelling and likely an effusion in Kager's fat pad. No underlying osseous findings to suggest osteomyelitis. Cannot exclude soft tissue infection [facility] RIS CONSOLIDATED EXAMINATION: THREE XRAY VIEWS OF THE LEFT FOOT 01/10/2022 7:12 pm COMPARISON: None. HISTORY: ORDERING SYSTEM PROVIDED HISTORY: possible infection, especially heel TECHNOLOGIST PROVIDED HISTORY: possible infection, especially heel FINDINGS: No acute fracture or dislocation. Interphalangeal and metatarsophalangeal joint spaces are preserved. There is a soft tissue defect over the posterior aspect of the ankle. There is soft tissue swelling and increased density surrounding this defect. There is no definite soft tissue gas. No underlying bony changes to suggest osteomyelitis. [facility] Roscoe Mcnulty P - 01/10/2022 EXAMINATION: THREE XRAY VIEWS OF THE LEFT FOOT 01/10/2022 7:12 pm COMPARISON: None. HISTORY: ORDERING SYSTEM PROVIDED HISTORY: possible infection, especially heel TECHNOLOGIST PROVIDED HISTORY: possible infection, especially heel FINDINGS: No acute fracture or dislocation. Interphalangeal and metatarsophalangeal joint spaces are preserved. There is a soft tissue defect over the posterior aspect of the ankle. There is soft tissue swelling and increased density surrounding this defect. There is no definite soft tissue gas. No underlying bony changes to suggest osteomyelitis. IMPRESSION: Soft tissue defect over the posterior aspect of the ankle with surrounding soft tissue swelling and likely an effusion in Kager's fat pad. No underlying osseous findings to suggest osteomyelitis. Cannot exclude soft tissue infection [employer] Work Phone: Radiology Study observation (narrative) [facility] [facility] Work Phone: XR FOOT LEFT (MIN 3 VIEWS)Or dered By: Roscoe Ferrer on 01-10-2022 [employer] Work Phone: Basic Metabolic Panel w/ Ref rebecca to MGon 12-20-2021 Anion gap [Moles/Vol] 8 mmol/L Low 9 - 17 mmol/L [employer] Calcium [Mass/Vol] 7.7 mg/dL Low 8.6 - 10. 4 mg/dL [employer] Chloride [Moles/Vol] 99 mmol/L 98 - 10 7 mmol/L [employer] CO2 [Moles/Vol] 23 mmol/L 20 - 31 mmol/L [employer] Creatinine [Mass/Vol] 0.82 mg/dL 0.70 - 1.20 mg/dL [employer] GFR >60 >60 mL/min [employer] GFR Non- >60 >60 mL/min [employer] GFR/1.73 sq M.predicted MDRD (S/P/Bld) [Vol rate/Area] [employer] Comment on above: Average GFR for 30-3 9 years old: 107 mL/min/1.73sq m Chronic Kidney Disease: <60 mL/min/1.73sq m Kidney failure: <15 mL/min/1.73sq m eGFR calculated using average adult body mass. Additional eGFR calculator available at: http://www.Cherry/multiple_crcl_2012.htm GFR/1.73 sq M.predicted MDRD (S/P/Bld) [Vol rate/Area] NOT REPORTED [employer] Glucose [Mass/Vol] 110 mg/dL High 70 - 99 mg/dL [employer] Interpretation and review of laboratory results Abnormal [employer] Potassium [Moles/Vol] 4.6 mmol/L 3.7 - 5.3 mmol/L [employer] Sodium [Moles/Vol] 130 mmol/L Low 135 - 144 mmol/L [employer] Urea nitrogen (BldV) [Mass/Vol] 15 mg/dL 6 - 20 mg/dL [employer] Urea nitrogen/Creatinine (Bld) [Mass ratio] NOT REPORTED [employer] IR ARTHR/ASP/INJ MAJOR JT/BU RSA RIGHT WO USon 12-20-2021 Successful fluoroscopic-guided right shoulder aspiration. [facility] RIS CONSOLIDATED EXAMINATION: Fluoroscopic guided right shoulder aspiration 12/20/2021 2:06 pm HISTORY: ORDERING SYSTEM PROVIDED HISTORY: actually it is aspiration of the right shoulder for cx a cell count - suspect it might be infected TECHNOLOGIST PROVIDED HISTORY: actually it is aspiration of the right shoulder for cx a cell count - suspect it might be infected Septic arthritis; right shoulder pain FLUOROSCOPY DOSE AND TYPE OR TIME AND EXPOSURES: Fluoro time 0.2 minutes DAP 2 cGy cm 2 PROCEDURE: PACKAGING CLERK: Everett Ga This procedure was performed by Everett Ga PA-C under indirect supervision of Dr. Dyson. Informed consent was obtained after a detailed explanation of the procedure including risks, benefits, and alternatives. [place] protocol was observed using maximum sterile barrier technique. While the patient was supine, after anesthetizing the right shoulder with one percent lidocaine, and using fluoroscopic guidance, a 20 g needle was advanced to the superior medial margin of the humeral head until bone was reached. The inner stylet was removed and an attempt at spontaneous aspiration was made without success. Subsequently approximately 2 mL of sterile water was injected into the joint space and aspirated. Very small amount of scan red fluid was aspirated and sent for cultures. The needle was withdrawn and a Band-Aid was applied at the site. Estimated blood loss was less than 1 mL. The patient tolerated the procedure well and left the Department in stable condition. [facility] RIS Darryl Cerrato MD - 12/20/2021 EXAMINATION: Fluoroscopic guided right shoulder aspiration 12/20/2021 2:06 pm HISTORY: ORDERING SYSTEM PROVIDED HISTORY: actually it is aspiration of the right shoulder for cx a cell count - suspect it might be infected TECHNOLOGIST PROVIDED HISTORY: actually it is aspiration of the right shoulder for cx a cell count - suspect it might be infected Septic arthritis; right shoulder pain FLUOROSCOPY DOSE AND TYPE OR TIME AND EXPOSURES: Fluoro time 0.2 minutes DAP 2 cGy cm 2 PROCEDURE: PACKAGING CLERK: Everett Ga This procedure was performed by Everett Ga PA-C under indirect supervision of Dr. Dyson. Informed consent was obtained after a detailed explanation of the procedure including risks, benefits, and alternatives. [place] protocol was observed using maximum sterile barrier technique. While the patient was supine, after anesthetizing the right shoulder with one percent lidocaine, and using fluoroscopic guidance, a 20 g needle was advanced to the superior medial margin of the humeral head until bone was reached. The inner stylet was removed and an attempt at spontaneous aspiration was made without success. Subsequently approximately 2 mL of sterile water was injected into the joint space and aspirated. Very small amount of scan red fluid was aspirated and sent for cultures. The needle was withdrawn and a Band-Aid was applied at the site. Estimated blood loss was less than 1 mL. The patient tolerated the procedure well and left the Department in stable condition. IMPRESSION: Successful fluoroscopic-guided right shoulder aspiration. [employer] Work Phone: Radiology Study observation (narrative) [facility] [facility] Work Phone: IR ARTHR/ASP/INJ MAJOR JT/BU RSA RIGHT WO USOrdered By: Darryl Dyson on 12-20-2021 [employer] Work Phone: No Panel Informationon 12-20 [employer] VANCOMYCIN, RANDOMon 022 Vancomycin Random Date last dose NOT REPORTED [employer] Vancomycin Random Dose amount NOT REPORTED [employer] Vancomycin Random Time last dose NOT REPORTED [employer] Vancomycin Rm 32.8 ug/mL [facility] Comment on above: Higher trough serum vancomycin concentrations of 15-20 ug/mL are recommended for complicated infections such as bacteremia, endocarditis, osteomyelitis, meningitis, and hospital acquired pneumonia. Basic Metabolic Panel w/ Ref rebecca to MGon 12-19-2021 Anion gap [Moles/Vol] 9 mmol/L 9 - 17 mmol/L [employer] Calcium [Mass/Vol] 8.4 mg/dL Low 8.6 - 10. 4 mg/dL [employer] Chloride [Moles/Vol] 101 mmol/L 98 - 10 7 mmol/L [employer] CO2 [Moles/Vol] 22 mmol/L 20 - 31 mmol/L [employer] Creatinine [Mass/Vol] 0.72 mg/dL 0.70 - 1.20 mg/dL [employer] GFR >60 >60 mL/min [place] GFR Non- >60 >60 mL/min [employer] GFR/1.73 sq M.predicted MDRD (S/P/Bld) [Vol rate/Area] [employer] Comment on above: Average GFR for 30-3 9 years old: 107 mL/min/1.73sq m Chronic Kidney Disease: <60 mL/min/1.73sq m Kidney failure: <15 mL/min/1.73sq m eGFR calculated using average adult body mass. Additional eGFR calculator available at: http://www.[employer] Round/multiple_crcl_2012.htm GFR/1.73 sq M.predicted MDRD (S/P/Bld) [Vol rate/Area] NOT REPORTED [employer] Glucose [Mass/Vol] 106 mg/dL High 70 - 99 mg/dL [employer] Potassium [Moles/Vol] 5.4 mmol/L High 3.7 - 5.3 mmol/L [employer] Sodium [Moles/Vol] 132 mmol/L Low 135 - 144 mmol/L [employer] Urea nitrogen (BldV) [Mass/Vol] 11 mg/dL 6 - 20 mg/dL [employer] Urea nitrogen/Creatinine (Bld) [Mass ratio] NOT REPORTED [employer] C-Reactive Proteinon 022 CRP [Mass/Vol] 45.9 mg/L High 0.0 - 5.0 mg/L [facility] No Panel Informationon 12-19 Interpretation and review of laboratory results Abnormal [facility] POTASSIUMon 12-19-2021 Potassium [Moles/Vol] 4.3 mmol/L 3.7 - 5.3 mmol/L [facility] TSH with Reflexon 12-19-2021 TSH Qn 2.73 m[IU]/L [facility] XR CHEST PORTABLEon 12-19-19 22 Scattered infiltrate s with right-sided PICC line. [facility] RIS CONSOLIDATED EXAMINATION: ONE XRAY VIEW OF THE CHEST 12/19/2021 6:36 am COMPARISON: Chest radiograph performed 12/12/2021. HISTORY: ORDERING SYSTEM PROVIDED HISTORY: pneumonia, septic emboli TECHNOLOGIST PROVIDED HISTORY: pneumonia, septic emboli FINDINGS: There are scattered infiltrates. There is no effusion. There is no pneumothorax. The mediastinal structures are unremarkable. The upper abdomen unremarkable. The extrathoracic soft tissues are unremarkable. There is a right-sided PICC line with the tip in the mid SVC. [facility] CONSOLIDATED Conrad Aquino MD - 12/19/2021 EXAMINATION: ONE XRAY VIEW OF THE CHEST 12/19/2021 6:36 am COMPARISON: Chest radiograph performed 12/12/2021. HISTORY: ORDERING SYSTEM PROVIDED HISTORY: pneumonia, septic emboli TECHNOLOGIST PROVIDED HISTORY: pneumonia, septic emboli FINDINGS: There are scattered infiltrates. There is no effusion. There is no pneumothorax. The mediastinal structures are unremarkable. The upper abdomen unremarkable. The extrathoracic soft tissues are unremarkable. There is a right-sided PICC line with the tip in the mid SVC. IMPRESSION: Scattered infiltrates with right-sided PICC line. [facility] [employer] Work Phone: Radiology Study observation (narrative) [facility] Work Phone: XR CHEST PORTABLEOrdered By: Conrad Aquino on 12-19-2021 [facility] Work Phone: Basic Metabolic Panel w/ Ref rebecca to MGon 12-18-2021 Anion gap [Moles/Vol] 8 mmol/L Low 9 - 17 mmol/L [facility] Calcium [Mass/Vol] 7.7 mg/dL Low 8.6 - 10. 4 mg/dL [employer] Chloride [Moles/Vol] 100 mmol/L 98 - 10 7 mmol/L [employer] CO2 [Moles/Vol] 20 mmol/L 20 - 31 mmol/L [facility] Creatinine [Mass/Vol] 0.38 mg/dL Low 0.70 - 1.20 mg/dL [facility] GFR >60 >60 mL/min [facility] GFR Non- >60 >60 mL/min [facility] GFR/1.73 sq M.predicted MDRD (S/P/Bld) [Vol rate/Area] [facility] [employer] Comment on above: Average GFR for 30-3 9 years old: 107 mL/min/1.73sq m Chronic Kidney Disease: <60 mL/min/1.73sq m Kidney failure: <15 mL/min/1.73sq m eGFR calculated using average adult body mass. Additional eGFR calculator available at: http://www.Cherry/multiple_crcl_2012.htm GFR/1.73 sq M.predicted MDRD (S/P/Bld) [Vol rate/Area] NOT REPORTED [facility] Glucose [Mass/Vol] 121 mg/dL High 70 - 99 mg/dL [employer] Potassium [Moles/Vol] 4.1 mmol/L 3.7 - 5.3 mmol/L [facility] Sodium [Moles/Vol] 128 mmol/L Low 135 - 144 mmol/L [facility] Urea nitrogen (BldV) [Mass/Vol] 10 mg/dL 6 - 20 mg/dL [facility] Urea nitrogen/Creatinine (Bld) [Mass ratio] NOT REPORTED [facility] [employer] Body Fluid Cell Count with D ifferentialon 12-18-2021 Appearance, Fluid NOT REPORTED [employer] Basos, Fluid NOT REPORTED 0 % [employer] th Color, Fluid NOT REPORTED [facility] Eos, Fluid NOT REPORTED 0 % [employer] Fluid Diff Comment NOT REPORTED [facility] Lymphocytes, Body Fluid 33 % [facility] Comment on above: The reference range and other method performance specifications have not been established for this body fluid. The test result must be integrated into the clinical context for interpretation. Monocyte Count, Fluid NOT REPORTED % [facility] Neutrophil Count, Fluid 47 % [facility] Comment on above: The reference range and other method performance specifications have not been established for this body fluid. The test result must be integrated into the clinical context for interpretation. Other Cells, Fluid MONOCYTES % [employer] Comment on above: The reference range and other method performance specifications have not been established for this body fluid. The test result must be integrated into the clinical context for interpretation. RBC, Fluid 5000 /mm3 [employer] Comment on above: The reference range and other method performance specifications have not been established for this body fluid. The test result must be integrated into the clinical context for interpretation. Specimen type Nom (Spec) .SYNOVIAL FLUID [employer] Comment on above: LEFT ANKLE WBC, Fluid 1126 /mm3 [employer] Comment on above: The reference range and other method performance specifications have not been established for this body fluid. The test result must be integrated into the clinical context for interpretation. [employer] Appearance, Fluid NOT REPORTED [employer] Basos, Fluid NOT REPORTED 0 % [employer] th Color, Fluid NOT REPORTED [employer] th Eos, Fluid NOT REPORTED 0 % [facility] Fluid Diff Comment NOT REPORTED [employer] Lymphocytes, Body Fluid 9 % [facility] Comment on above: The reference range and other method performance specifications have not been established for this body fluid. The test result must be integrated into the clinical context for interpretation. Monocyte Count, Fluid NOT REPORTED % [facility] Neutrophil Count, Fluid 89 % [facility] Comment on above: The reference range and other method performance specifications have not been established for this body fluid. The test result must be integrated into the clinical context for interpretation. Other Cells, Fluid MONOCYTES % [employer] Comment on above: The reference range and other method performance specifications have not been established for this body fluid. The test result must be integrated into the clinical context for interpretation. RBC, Fluid 08841 /mm3 [employer] Comment on above: The reference range and other method performance specifications have not been established for this body fluid. The test result must be integrated into the clinical context for interpretation. Specimen type Nom (Spec) LEFT [employer] Comment on above: .WRIST WBC, Fluid 47115 /mm3 [employer] Comment on above: The reference range and other method performance specifications have not been established for this body fluid. The test result must be integrated into the clinical context for interpretation. [employer] Body Fluid Crystalon 02-07-2 022 Crystals, Fluid Negative NEGATIVE [facility] Comment on above: NO CRYSTALS SEEN Specimen type Nom (Spec) .SYNOVIAL FLUID [facility] Comment on above: LEFT ANKLE [facility] Crystals, Fluid Negative NEGATIVE [facility] Comment on above: NO CRYSTALS SEEN Specimen type Nom (Spec) .SYNOVIAL FLUID [facility] Crystals, Fluid Negative NEGATIVE [facility] Comment on above: NO CRYSTALS SEEN Specimen type Nom (Spec) .SYNOVIAL FLUID [facility] Culture, Blood 1on 2 Bacteria identified Cx Nom (Unsp spec) Positive Abnormal [facility] Bacteria identified Cx Nom (Unsp spec) DIRECT GRAM STAIN FROM BOTTLE: GRAM POSITIVE COCCI IN CLUSTERS [employer] Bacteria identified Cx Nom (Unsp spec) METHICILLIN RESISTANT STAPHYLOCOCCUS AUREUS Abnormal [facility] Bacteria identified Cx Nom (Unsp spec) (NOTE) Direct Gram Stain from bottle result called to and read back by: ANSELMO Hernández on 12/17/21 at 01:35 [facility] Interpretation and review of laboratory results Abnormal [facility] Special Requests 20ML R HAND [facility] Specimen Description .BLOOD [facility] No Panel Informationon 12-18 Interpretation and review of laboratory results Abnormal [facility] VANCOMYCIN, TROUGHon 022 Vancomycin Tr 8.6 ug/mL Low 10.0 - 20.0 ug/mL [facility] Comment on above: Higher trough serum vancomycin concentrations of 15-20 ug/mL are recommended for complicated infections such as bacteremia, endocarditis, osteomyelitis, meningitis, and hospital acquired pneumonia. Vancomycin Trough Date last dose NOT REPORTED [employer] [facility] Vancomycin Trough Dose amount NOT REPORTED [facility] Vancomycin Trough Time last dose NOT REPORTED [facility] Basic Metabolic Panel w/ Ref rebecca to MGon 12-17-2021 Anion gap [Moles/Vol] 5 mmol/L Low 9 - 17 mmol/L [employer] Calcium [Mass/Vol] 7.9 mg/dL Low 8.6 - 10. 4 mg/dL [employer] Chloride [Moles/Vol] 102 mmol/L 98 - 10 7 mmol/L [facility] [employer] CO2 [Moles/Vol] 24 mmol/L 20 - 31 mmol/L [employer] Creatinine [Mass/Vol] 0.52 mg/dL Low 0.70 - 1.20 mg/dL [facility] [employer] GFR >60 >60 mL/min [facility] GFR Non- >60 >60 mL/min [facility] [employer] GFR/1.73 sq M.predicted MDRD (S/P/Bld) [Vol rate/Area] [facility] Comment on above: Average GFR for 30-3 9 years old: 107 mL/min/1.73sq m Chronic Kidney Disease: <60 mL/min/1.73sq m Kidney failure: <15 mL/min/1.73sq m eGFR calculated using average adult body mass. Additional eGFR calculator available at: http://www.Cherry/multiple_crcl_2012.htm GFR/1.73 sq M.predicted MDRD (S/P/Bld) [Vol rate/Area] NOT REPORTED [facility] [employer] Glucose [Mass/Vol] 97 mg/dL 70 - 99 mg/dL [facility] [employer] Potassium [Moles/Vol] 4.7 mmol/L 3.7 - 5.3 mmol/L [facility] Sodium [Moles/Vol] 131 mmol/L Low 135 - 144 mmol/L [facility] Urea nitrogen (BldV) [Mass/Vol] 9 mg/dL 6 - 20 mg/dL [facility] Urea nitrogen/Creatinine (Bld) [Mass ratio] NOT REPORTED [facility] C-Reactive Proteinon 022 CRP [Mass/Vol] 56.1 mg/L High 0.0 - 5.0 mg/L [facility] [employer] CBC Auto Differentialon Absolute Eos # 0.12 [facility] th Absolute Immature Granulocyte 0.06 [facility] Absolute Lymph # 1.25 [facility] alth Absolute Kings # 0.68 [facility] lth Basophils (Bld) [#/Vol] 0.06 10*3/uL [facility] Basophils/100 WBC (Bld) 1 % 0 - 2 % M [facility] [employer] Differential Type NOT REPORTED [facility] Eosinophils/100 WBC (Bld) 2 % 1 - 4 % [facility] Hematocrit (Bld) [Volume fraction] 28.4 % Low 40.7 - 50.3 % [facility] Hemoglobin.gastrointesti nal spec 1 Ql (Stl) 9.4 g/dL Low 13.0 - 17.0 g/dL [facility] Immature granulocytes/100 WBC (Bld) 1 % High 0 [facility] Interpretation and review of laboratory results Abnormal [facility] Lymphocytes/100 WBC (Bld) 20 % Low 24 - 43 % [facility] MCH (RBC) [Entitic mass] 28.0 pg 25. 2 - 33.5 pg [facility] MCHC (RBC) [Mass/Vol] 33.1 g/dL 28.4 - 34.8 g/dL [facility] MCV (RBC) [Entitic vol] 84.5 fL 82.6 - 102.9 fL [facility] Monocytes/100 WBC (Bld) 11 % 3 - 12 % M [facility] NRBC Automated 0.0 0.0 per 100 WBC [facility] Platelet distribution width (Bld) [Ratio] 14.9 % High 11.8 - 14.4 % [facility] Platelet Estimate NOT REPORTED [facility] Platelet mean volume (Bld) [Entitic vol] 9.9 fL 8.1 - 13.5 fL [facility] Platelets (Bld) [#/Vol] 188 10*3/uL [facility] RBC (Bld) [#/Vol] 3.36 10*6/uL Low 4.21 - 5.7 7 m/uL [facility] RBC (Bld) [#/Vol] ANISOCYTOSIS PRESENT [facility] Segmented neutrophils/100 WBC (Bld) 65 % 36 - 65 % [facility] Segs Absolute 4.04 [facility] WBC (Bld) [#/Vol] 6.2 10*3/uL [facility] WBC (Bld) [#/Vol] NOT REPORTED [facility] No Panel Informationon 12-17 Interpretation and review of laboratory results Abnormal [facility] Basic Metabolic Panel w/ Ref rebecca to MGon 12-16-2021 Anion gap [Moles/Vol] 8 mmol/L Low 9 - 17 mmol/L [facility] Calcium [Mass/Vol] 7.6 mg/dL Low 8.6 - 10. 4 mg/dL [facility] Chloride [Moles/Vol] 97 mmol/L Low 98 - 10 7 mmol/L [facility] CO2 [Moles/Vol] 23 mmol/L 20 - 31 mmol/L [facility] Creatinine [Mass/Vol] 0.53 mg/dL Low 0.70 - 1.20 mg/dL [facility] GFR >60 >60 mL/min [employer] GFR Non- >60 >60 mL/min [facility] [employer] GFR/1.73 sq M.predicted MDRD (S/P/Bld) [Vol rate/Area] [facility] [employer] Comment on above: Average GFR for 30-3 9 years old: 107 mL/min/1.73sq m Chronic Kidney Disease: <60 mL/min/1.73sq m Kidney failure: <15 mL/min/1.73sq m eGFR calculated using average adult body mass. Additional eGFR calculator available at: http://www.[employer]/multiple_crcl_2012.htm GFR/1.73 sq M.predicted MDRD (S/P/Bld) [Vol rate/Area] NOT REPORTED [facility] [employer] Glucose [Mass/Vol] 117 mg/dL High 70 - 99 mg/dL [facility] Interpretation and review of laboratory results Abnormal [facility] Potassium [Moles/Vol] 4.1 mmol/L 3.7 - 5.3 mmol/L [facility] Sodium [Moles/Vol] 128 mmol/L Low 135 - 144 mmol/L [facility] Urea nitrogen (BldV) [Mass/Vol] 10 mg/dL 6 - 20 mg/dL [facility] Urea nitrogen/Creatinine (Bld) [Mass ratio] NOT REPORTED [facility] Body Fluid Cell Count with D ifferentialon 12-16-2021 Appearance, Fluid NOT REPORTED [facility] [employer] Basos, Fluid NOT REPORTED 0 % [facility] th Color, Fluid NOT REPORTED [facility] th Eos, Fluid NOT REPORTED 0 % [facility] Fluid Diff Comment NOT REPORTED [facility] [employer] [facility] Lymphocytes, Body Fluid 9 % [facility] Comment on above: The reference range and other method performance specifications have not been established for this body fluid. The test result must be integrated into the clinical context for interpretation. Monocyte Count, Fluid NOT REPORTED % [facility] Neutrophil Count, Fluid 91 % [facility] Comment on above: The reference range and other method performance specifications have not been established for this body fluid. The test result must be integrated into the clinical context for interpretation. Other Cells, Fluid NOT REPORTED % [facility] RBC, Fluid <3000 /mm3 [facility] [employer] Comment on above: The reference range and other method performance specifications have not been established for this body fluid. The test result must be integrated into the clinical context for interpretation. Specimen type Nom (Spec) RIGHT [facility] Comment on above: .KNEE WBC, Fluid 6514 /mm3 [facility] Comment on above: The reference range and other method performance specifications have not been established for this body fluid. The test result must be integrated into the clinical context for interpretation. [facility] CBC WITH AUTO DIFFERENTIALon 12-16-2021 Absolute Eos # 0.11 [facility] Absolute Immature Granulocyte <0.03 [facility] Absolute Lymph # 1.12 [facility] alth Absolute Kings # 0.75 [facility] lt Basophils (Bld) [#/Vol] 0.04 10*3/uL [facility] Basophils/100 WBC (Bld) 1 % 0 - 2 % [facility] Differential Type NOT REPORTED [facility] Eosinophils/100 WBC (Bld) 2 % 1 - 4 % [facility] Hematocrit (Bld) [Volume fraction] 29.2 % Low 40.7 - 50.3 % [facility] Hemoglobin.gastrointesti nal spec 1 Ql (Stl) 9.7 g/dL Low 13.0 - 17.0 g/dL [facility] Immature granulocytes/100 WBC (Bld) 0 % 0 [facility] Interpretation and review of laboratory results Abnormal [facility] Lymphocytes/100 WBC (Bld) 15 % Low 24 - 43 % [facility] MCH (RBC) [Entitic mass] 27.8 pg 25. 2 - 33.5 pg [facility] MCHC (RBC) [Mass/Vol] 33.2 g/dL 28.4 - 34.8 g/dL [facility] MCV (RBC) [Entitic vol] 83.7 fL 82.6 - 102.9 fL [facility] Monocytes/100 WBC (Bld) 10 % 3 - 12 % [facility] NRBC Automated 0.0 0.0 per 100 WBC [facility] Platelet distribution width (Bld) [Ratio] 15.0 % High 11.8 - 14.4 % [facility] Platelet Estimate NOT REPORTED [facility] Platelet mean volume (Bld) [Entitic vol] 10.0 fL 8.1 - 13.5 fL [facility] Platelets (Bld) [#/Vol] 163 10*3/uL [facility] RBC (Bld) [#/Vol] 3.49 10*6/uL Low 4.21 - 5.7 7 m/uL [facility] RBC (Bld) [#/Vol] ANISOCYTOSIS PRESENT [facility] Segmented neutrophils/100 WBC (Bld) 72 % High 36 - 65 % [facility] Segs [facility] 5.34 [facility] W[facility] (Bld[facility] [#/Vol] 7.4 10*3/uL [facility] WBC (Bld) [#/Vol] NOT REPORTED [facility] Culture, Blood 1on 2 Bacteria identified Cx Nom (Unsp spec) Positive Abnormal [facility] Bacteria identified Cx Nom (Unsp spec) DIRECT GRAM STAIN FROM BOTTLE: GRAM POSITIVE COCCI IN CLUSTERS [facility] Bacteria identified Cx Nom (Unsp spec) METHICILLIN RESISTANT STAPHYLOCOCCUS AUREUS For susceptibility, refer to previous culture. Abnormal [facility] Bacteria identified Cx Nom (Unsp spec) (NOTE) Direct Gram Stain from bottle result called to and read back by: ANSELMO Dewitt on 12/14/21 at 17:45 [facility] Interpretation and review of laboratory results Abnormal [facility] Special Requests L FA 7CC Lily alth Specimen Description .BLOOD [facility] No Panel Informationon 12-16 Radiology Study observation (narrative) [employer] Work Phone: Sedimentation Rateon 022 Interpretation and review of laboratory results Abnormal [facility] Sed Rate 32 mm High 0 - 15 mm [facility] VL DUP LOWER EXTREMITY VENOU S LEFTon 12-16-2021 Gordo Juárez MD - 12/16/2021 [facility] Vascular Lower Extremities DVT Study Procedure Patient Name COTY Date of Study 12/16/2021 TIP Boni Date of 1980 Gender Male Age 41 year(s) Race Room Number 0316 Height: 73 inch, 185.42 cm Corporate ID [id number] Weight: 170 pounds, 77.1 kg # Patient Acct [id number] BSA: 2.01 m^2 BMI: 22.43 kg/m^2 # MR # [id number] Toll Line Repairer Vivienne Roach RVT Interpreting Physician Gordo Juárez Referring Referring Physician Marimar Ren Nurse Practitioner Procedure Type of Study: Veins: Lower Extremities DVT Study, Venous Scan Lower Left. Indications for Study:Edema. Patient Status:In Patient. Technical Quality:Adequate visualization. Limitation reason:edema. Conclusions Summary Simultaneous real time imaging utilizing B-Mode, color doppler and spectral waveform analysis was performed on the left lower extremity for venous examination of the deep and superficial systems. Findings are: Left: No evidence of deep or superficial venous thrombosis. Small fluid collection noted around the ankle, correlate clinically. Signature - - - - Left Impression: The common femoral, femoral, popliteal and tibial veins demonstrate normal compressibility and augmentation. Normal compressibility of the great saphenous vein. Normal compressibility of the small saphenous vein. Enlarged lymph nodes are noted at the groin level. Incidental finding of a non vascularized fluid collection in the medial ankle with mixed echoes measuring 1.58 cm x 0.71 cm. Incidental finding of a non vascularized fluid collection in the lateral ankle with mixed echoes measuring 1.27 cm x 0.49 cm. Risk Factors History + +-- --------+ + !Diagnosis !Date !Comments ! + +-- --------+ + !Previous Scan !05/29/2021!Bilateral Lower Venous: WNL ! + +-- --------+ + - The patient's risk factor(s) include: chronic lung disease. - The patient has a former tobacco history. - The patient's last creatinine was 0.5 mg/dl. Allergies - Allergy:Penicillin(Dr miranda). Velocities are measured in cm/s ; Diameters are measured in cm Right Lower Extremities DVT Study Measurements Right Doppler Measurements + ------+ +-- ----+ + !Location !Signal !Reflux!Reflux (msec) ! + ------+ +-- ----+ + !Common Femoral !Spontaneous! ! ! + ------+ +-- ----+ + Left Lower Extremities DVT Study Measurements Left 2D Measurements + +---- ------+ -+ + !Location !Visualized!Compressi bility!Thrombosis! + +---- ------+ -+ + !Common Femoral !Yes !Yes !None ! + +---- ------+ -+ + !Prox Femoral !Yes !Yes !None ! + +---- ------+ -+ + !Mid Femoral !Yes !Yes !None ! + +---- ------+ -+ + !Dist Femoral !Yes !Yes !None ! + +---- ------+ -+ + !Popliteal !Yes !Yes !None ! + +---- ------+ -+ + !Sapheno Femoral Junction !Yes !Yes !None ! + +---- ------+ -+ + !PTV !Yes !Yes !None ! + +---- ------+ -+ + !Peroneal !Yes !Yes !None ! + +---- ------+ -+ + !Gastroc !Yes !Yes !None ! + +---- ------+ -+ + !GSV Thigh !Yes !Yes !None ! + +---- ------+ -+ + !GSV Knee !Yes !Yes !None ! + +---- ------+ -+ + !GSV Ankle !Yes !Yes !None ! + +---- ------+ -+ + !SSV !Yes !Yes !None ! + (more content not included)... [employer] Phone: [facility] Phone: Radiology Study observation (narrative) [facility] Phone: VL DUP UPPER EXTREMITY VENOU S LEFTon 12-16-2021 Gordo Juárez MD - 12/16/2021 [facility] Vascular Upper Extremities Veins Procedure Patient Name COTY Date of Study 12/16/2021 TIP Boni Date of 1980 Gender Male Age 41 year(s) Race Room Number 0316 Height: 73 inch, 185.42 cm Corporate ID [id number] Weight: 170 pounds, 77.1 kg # Patient Acct [id number] BSA: 2.01 m^2 BMI: 22.43 kg/m^2 # MR # [id number] Toll Line Repairer Vivienne Roach RVT Interpreting Physician Gordo Juárez Referring Referring Physician Marimar Ren Nurse Practitioner Procedure Type of Study: Veins: Upper Extremities Veins, Venous Scan Upper Left. Indications for Study:Edema. Patient Status:In Patient. Technical Quality:Adequate visualization. Limitation reason:veins compressed with breathing. Conclusions Summary Simultaneous real time imaging utilizing B-Mode, color doppler and spectral waveform analysis was performed on the left upper extremity for venous examination of the deep and superficial systems. Findings are: Left: No evidence of deep or superficial venous thrombosis. Signature - - - - Left Impression: Internal jugular, subclavian, axillary, brachial, ulnar, radial, cephalic and basilic veins are compressible with normal doppler responses. Incidental finding of a vascularized fluid collection in the wrist area with mixed echoes measuring 0.78 cm x 2.35 cm. Incidental finding of a non vascularized fluid collection in the medial distal forearm with mixed echoes measuring 0.46 cm x 2.12 cm. Risk Factors History + +-- --------+ + !Diagnosis !Date !Comments ! + +-- --------+ + !Previous Scan !05/29/2021!Bilateral Lower Venous: WNL ! + +-- --------+ + - The patient's risk factor(s) include: chronic lung disease. - The patient has a former tobacco history. - The patient's last creatinine was 0.5 mg/dl. Allergies - Allergy:Penicillin(Dr miranda). Velocities are measured in cm/s ; Diameters are measured in cm Right UE Vein Measurements Doppler Measurements + ---+ ---------+ + !Location !Signal !Reflux ! + ---+ ---------+ + !SCV !Spontaneous ! ! + ---+ ---------+ + Left UE Vein Measurements 2D Measurements + +---- ------+ -+ + !Location !Visualized!Compressi bility!Thrombosis! + +---- ------+ -+ + !Prox IJV !Yes !Yes !None ! + +---- ------+ -+ + !Dist IJV !Yes !Yes !None ! + +---- ------+ -+ + !Prox SCV !Yes !Yes !None ! + +---- ------+ -+ + !Dist SCV !Yes !Yes !None ! + +---- ------+ -+ + !Prox Axillary !Yes !Yes !None ! + +---- ------+ -+ + !Dist Axillary !Yes !Yes !None ! + +---- ------+ -+ + !Prox Brachial !Yes !Yes !None ! + +---- ------+ -+ + !Dist Brachial !Yes !Yes !None ! + +---- ------+ -+ + !Prox Radial !Yes !Yes !None ! + +---- ------+ -+ + !Dist Radial !Yes !Yes !None ! + +---- ------+ -+ + !Prox Ulnar !Yes !Yes !None ! + +---- ------+ -+ + !Dist Ulnar !Yes !Yes !None ! + +---- ------+ -+ + !Basilic at UA !Yes !Yes !None ! + +---- ------+ -+ + !Basilic at AF !Yes !Yes !None ! + +---- ------+ -+ + !Basilic at LA !Yes !Yes !None ! + --------- (more content not included)... [employer] Phone: Radiology Study observation (narrative) [employer] Phone: VL DUP UPPER EXTREMITY VENOU S LEFTOrdered By: Gordo Juárez on 12-16-2021 [employer] Phone: XR KNEE RIGHT (3 VIEWS)on No acute abnormality of the knee. [facility] EXAMINATION: THREE XRAY VIEWS OF THE RIGHT KNEE 12/16/2021 2:02 pm COMPARISON: None. HISTORY: ORDERING SYSTEM PROVIDED HISTORY: Trauma/Fracture TECHNOLOGIST PROVIDED HISTORY: Trauma/Fracture FINDINGS: No evidence of acute fracture or dislocation. No focal osseous lesion. No evidence of joint effusion. No focal soft tissue abnormality. [facility] Addy Gates MD - 12/16/2021 EXAMINATION: THREE XRAY VIEWS OF THE RIGHT KNEE 12/16/2021 2:02 pm COMPARISON: None. HISTORY: ORDERING SYSTEM PROVIDED HISTORY: Trauma/Fracture TECHNOLOGIST PROVIDED HISTORY: Trauma/Fracture FINDINGS: No evidence of acute fracture or dislocation. No focal osseous lesion. No evidence of joint effusion. No focal soft tissue abnormality. IMPRESSION: No acute abnormality of the knee. [employer] Phone: XR KNEE RIGHT (3 VIEWS)Order ed By: Addy Gates on 12-16-2021 [employer] Phone: XR SHOULDER RIGHT (MIN 2 VIE WS)on 12-16-2021 No acute osseous abnormality. [facility] EXAMINATION: THREE XRAY VIEWS OF THE RIGHT SHOULDER 12/16/2021 2:02 pm COMPARISON: None. HISTORY: ORDERING SYSTEM PROVIDED HISTORY: Trauma/Fracture TECHNOLOGIST PROVIDED HISTORY: Trauma/Fracture FINDINGS: Glenohumeral joint is normally aligned. No evidence of acute fracture or dislocation. No abnormal periarticular calcifications. The AC joint is unremarkable in appearance. Right PICC with tip in the superior vena cava. [facility] Addy Gates MD - 12/16/2021 EXAMINATION: THREE XRAY VIEWS OF THE RIGHT SHOULDER 12/16/2021 2:02 pm COMPARISON: None. HISTORY: ORDERING SYSTEM PROVIDED HISTORY: Trauma/Fracture TECHNOLOGIST PROVIDED HISTORY: Trauma/Fracture FINDINGS: Glenohumeral joint is normally aligned. No evidence of acute fracture or dislocation. No abnormal periarticular calcifications. The AC joint is unremarkable in appearance. Right PICC with tip in the superior vena cava. IMPRESSION: No acute osseous abnormality. [employer] Work Phone: [employer] Work Phone: C-REACTIVE PROTEINon 022 CRP [Mass/Vol] 62.9 mg/L High 0.0 - 5.0 mg/L [facility] CBC WITH AUTO DIFFERENTIALon 12-15-2021 Absolute Eos # 0.25 [facility] th Absolute Immature Granulocyte 0.08 [employer] [facility] Absolute Lymph # 1.25 [facility] alth Absolute Kings # 0.83 [facility] lth Basophils (Bld) [#/Vol] 0.08 10*3/uL [facility] Basophils/100 WBC (Bld) 1 % 0 - 2 % [facility] Differential Type NOT REPORTED [facility] Eosinophils/100 WBC (Bld) 3 % 1 - 4 % [facility] Hematocrit (Bld) [Volume fraction] 29.7 % Low 40.7 - 50.3 % [facility] Hemoglobin.gastrointesti nal spec 1 Ql (Stl) 9.8 g/dL Low 13.0 - 17.0 g/dL [facility] Immature granulocytes/100 WBC (Bld) 1 % High 0 [facility] Interpretation and review of laboratory results Abnormal [employer] Lymphocytes/100 WBC (Bld) 15 % Low 24 - 43 % [facility] MCH (RBC) [Entitic mass] 27.8 pg 25. 2 - 33.5 pg [facility] MCHC (RBC) [Mass/Vol] 33.0 g/dL 28.4 - 34.8 g/dL [facility] MCV (RBC) [Entitic vol] 84.4 fL 82.6 - 102.9 fL [facility] Monocytes/100 WBC (Bld) 10 % 3 - 12 % M [facility] Morphology Adis (Bld) [Interp] ANISOCYTOSIS PRESENT [facility] NRBC Automated 0.0 0.0 per 100 WBC [facility] Platelet distribution width (Bld) [Ratio] 15.0 % High 11.8 - 14.4 % [facility] Platelet Estimate NOT REPORTED [facility] Platelet mean volume (Bld) [Entitic vol] 10.5 fL 8.1 - 13.5 fL [facility] Platelets (Bld) [#/Vol] 140 10*3/uL [facility] RBC (Bld) [#/Vol] 3.52 10*6/uL Low 4.21 - 5.7 7 m/uL [facility] RBC (Bld) [#/Vol] NOT REPORTED [facility] Segmented neutrophils/100 WBC (Bld) 70 % High 36 - 65 % [facility] Segs Absolute 5.81 [facility] WBC (Bld) [#/Vol] 8.3 10*3/uL [facility] WBC (Bld) [#/Vol] NOT REPORTED [facility] CREATININE, RANDOM URINEon 0 12-15-2021 Creatinine, Ur 64.4 mg/dL 39.0 - 259.0 mg/dL [facility] Catheterization and angiogra phy procedure details panelOrdered By: Unknown Result on 12-15-2021 [facility] Comprehensive Metabolic Pane l w/ Reflex to MGon 12-15-2021 Albumin [Mass/Vol] 1.9 g/dL Low 3.5 - 5.2 g/dL [facility] Albumin/Globulin [Mass ratio] 0.5 {ratio} Low [facility] ALP (Bld) [Catalytic activity/Vol] 117 U/L 40 - 129 U/L [facility] ALT [Catalytic activity/Vol] 64 U/L High 5 - 41 U/L [facility] Anion gap [Moles/Vol] 7 mmol/L Low 9 - 17 mmol/L [facility] AST [Catalytic activity/Vol] 55 U/L High <40 [facility] Bilirubin [Mass/Vol] 0.38 mg/dL 0.3 - 1 .2 mg/dL [facility] [employer] Calcium [Mass/Vol] 7.0 mg/dL Low 8.6 - 10. 4 mg/dL [facility] Chloride [Moles/Vol] 100 mmol/L 98 - 10 7 mmol/L [employer] CO2 [Moles/Vol] 22 mmol/L 20 - 31 mmol/L [employer] Creatinine [Mass/Vol] 0.55 mg/dL Low 0.70 - 1.20 mg/dL [employer] Free PSA/Total PSA [Mass fraction] 5.7 g/dL Low 6.4 - 8.3 g/dL [employer] GFR >60 >60 mL/min [facility] GFR Non- >60 >60 mL/min [facility] GFR/1.73 sq M.predicted MDRD (S/P/Bld) [Vol rate/Area] [facility] Comment on above: Average GFR for 30-3 9 years old: 107 mL/min/1.73sq m Chronic Kidney Disease: <60 mL/min/1.73sq m Kidney failure: <15 mL/min/1.73sq m eGFR calculated using average adult body mass. Additional eGFR calculator available at: http://www.Cherry/multiple_crcl_2012.htm GFR/1.73 sq M.predicted MDRD (S/P/Bld) [Vol rate/Area] NOT REPORTED [employer] Glucose [Mass/Vol] 111 mg/dL High 70 - 99 mg/dL [employer] Potassium [Moles/Vol] 4.2 mmol/L 3.7 - 5.3 mmol/L [employer] Sodium [Moles/Vol] 129 mmol/L Low 135 - 144 mmol/L [employer] Urea nitrogen (BldV) [Mass/Vol] 9 mg/dL 6 - 20 mg/dL [employer] Urea nitrogen/Creatinine (Bld) [Mass ratio] NOT REPORTED [employer] Culture, Blood 1on 2 Bacteria identified Cx Nom (Unsp spec) Positive Abnormal [employer] Bacteria identified Cx Nom (Unsp spec) DIRECT GRAM STAIN FROM BOTTLE: GRAM POSITIVE COCCI IN CLUSTERS [employer] Bacteria identified Cx Nom (Unsp spec) Staphylococcus aureus Detected: mecA/C and MREJ Gene Detected- Methicillin Resistant Organism Methodology- Polymerase Chain Reaction (PCR) Abnormal [employer] Bacteria identified Cx Nom (Unsp spec) METHICILLIN RESISTANT STAPHYLOCOCCUS AUREUS Abnormal [employer] Bacteria identified Cx Nom (Unsp spec) (NOTE) Direct Gram Stain from bottle and Polymerase Chain Reaction (PCR) results called to and read back by:DIANE Martinez AT 1440 ON 12/14/2021 [facility] Interpretation and review of laboratory results Abnormal [facility] Special Requests RT AC 10 ML [facility] bushraselect medical [facility] Specimen Description .BLOOD [facility] No Panel Informationon 12-15 [facility] Interpretation and review of laboratory results Abnormal [facility] Osmolality, Urineon 12-15-19 22 Osmolality, Ur 503 [facility] th [facility] SODIUM, URINE, RANDOMon Sodium (U) [Moles/Vol] 140 mmol/L [facility] Comment on above: No normal range esta blished. Vancomycin, Randomon 022 Vancomycin Random Date last dose NOT REPORTED [facility] Vancomycin Random Dose amount NOT REPORTED [facility] Vancomycin Random Time last dose NOT REPORTED [facility] Vancomycin Rm 14 ug/mL [facility] Comment on above: Higher trough serum vancomycin concentrations of 15-20 ug/mL are recommended for complicated infections such as bacteremia, endocarditis, osteomyelitis, meningitis, and hospital acquired pneumonia. [facility] Basic Metabolic Panel w/ Ref rebecca to MGon 12-14-2021 Anion gap [Moles/Vol] 6 mmol/L Low 9 - 17 mmol/L [facility] [employer] Calcium [Mass/Vol] 7.6 mg/dL Low 8.6 - 10. 4 mg/dL [facility] Chloride [Moles/Vol] 106 mmol/L 98 - 10 7 mmol/L [facility] CO2 [Moles/Vol] 23 mmol/L 20 - 31 mmol/L [facility] [employer] Creatinine [Mass/Vol] 0.55 mg/dL Low 0.70 - 1.20 mg/dL [facility] [employer] GFR >60 >60 mL/min [facility] [employer] [facility] GFR Non- >60 >60 mL/min [facility] GFR/1.73 sq M.predicted MDRD (S/P/Bld) [Vol rate/Area] [facility] Comment on above: Average GFR for 30-3 9 years old: 107 mL/min/1.73sq m Chronic Kidney Disease: <60 mL/min/1.73sq m Kidney failure: <15 mL/min/1.73sq m eGFR calculated using average adult body mass. Additional eGFR calculator available at: http://www.Cherry/multiple_crcl_2012.htm GFR/1.73 sq M.predicted MDRD (S/P/Bld) [Vol rate/Area] NOT REPORTED [facility] Glucose [Mass/Vol] 111 mg/dL High 70 - 99 mg/dL [facility] Interpretation and review of laboratory results Abnormal [facility] Potassium [Moles/Vol] 3.6 mmol/L Low 3.7 - 5.3 mmol/L [facility] Sodium [Moles/Vol] 135 mmol/L 135 - 144 mmol/L [facility] Urea nitrogen (BldV) [Mass/Vol] 13 mg/dL 6 - 20 mg/dL [facility] Urea nitrogen/Creatinine (Bld) [Mass ratio] NOT REPORTED [facility] CBC auto differentialon Absolute Eos # 0.20 [facility] th Absolute Immature Granulocyte 0.05 [facility] Absolute Lymph # 1.04 Low [facility] alth Absolute Kings # 0.87 [facility] lth Basophils (Bld) [#/Vol] 0.03 10*3/uL [facility] Basophils/100 WBC (Bld) 0 % 0 - 2 % [facility] Differential Type NOT REPORTED [facility] Eosinophils/100 WBC (Bld) 2 % 1 - 4 % [facility] Hematocrit (Bld) [Volume fraction] 30.8 % Low 40.7 - 50.3 % [facility] Hemoglobin.gastrointesti nal spec 1 Ql (Stl) 10.3 g/dL Low 13.0 - 17.0 g/dL [facility] Immature granulocytes/100 WBC (Bld) 1 % High 0 [facility] Interpretation and review of laboratory results Abnormal [facility] Lymphocytes/100 WBC (Bld) 11 % Low 24 - 43 % [facility] MCH (RBC) [Entitic mass] 27.9 pg 25. 2 - 33.5 pg [facility] MCHC (RBC) [Mass/Vol] 33.4 g/dL 28.4 - 34.8 g/dL [facility] MCV (RBC) [Entitic vol] 83.5 fL 82.6 - 102.9 fL [facility] Monocytes/100 WBC (Bld) 9 % 3 - 12 % [facility] NRBC Automated 0.0 0.0 per 100 WBC [facility] Platelet distribution width (Bld) [Ratio] 14.7 % High 11.8 - 14.4 % [facility] Platelet Estimate NOT REPORTED [facility] Platelet mean volume (Bld) [Entitic vol] 10.8 fL 8.1 - 13.5 fL [facility] Platelets (Bld) [#/Vol] 150 10*3/uL [facility] RBC (Bld) [#/Vol] 3.69 10*6/uL Low 4.21 - 5.7 7 m/uL [facility] RBC (Bld) [#/Vol] ANISOCYTOSIS PRESENT [facility] Segmented neutrophils/100 WBC (Bld) 77 % High 36 - 65 % [facility] Segs Absolute 7.03 [facility] WBC (Bld) [#/Vol] 9.2 10*3/uL [facility] WBC (Bld) [#/Vol] NOT REPORTED [facility] CULTURE BLOODon 12-14-2021 Microscopic examination of blood, culture Specimen Comments: L WRIST Culture Observations: METHICILLIN RESISTANT STAPH AUREUS ISOLATED. PLEASE FOLLOW APPROPRIATE ISOLATION PROCEDURES. Isolate 1 Staphylococcus aureus (MRSA) Growth of ORGANISM 1 Staphylococcus aureus (MRSA) ANTIBIOTIC M.I.C RX STATUS Beta-Lactamase Pos POS F Cefoxitin Screen Pos POS F Benzylpenicillin >=0.5 R F Gentamicin <=0.5 S F Ciprofloxacin <=0.5 S F Levofloxacin <=0.12 S F Moxifloxacin <=0.25 S F Inducible Clindamycin Resistance Neg NEG F Erythromycin >=8 R F Clindamycin <=0.25 S F Quinupristin/Dalfopri stin <=0.25 S F Linezolid 1 S F Vancomycin 1 S F Tetracycline <=1 S F Rifampicin <=0.5 S F Trimethoprim/Sulfamet hoxazole <=10 S F Oxacillin >=4 R F Normal [facility] Comment on above: Performed By: #### C MELCHOR #### [facility] [address] [place] [address] Dr. Amanda Mendez-INRon 12-14-2021 INR Coag (Bld) [Relative time] 1.2 {INR} [facility] Comment on above: Therapeutic Range: Moderate Anticoagulant Intensity: INR = 2.0-3.0 High Anticoagulant Intensity: INR = 2.5-3.5 Interpretation and review of laboratory results Abnormal [employer] PT Coag (PPP) [Time] 13 s High [employer] [facility] Basic Metabolic Panel w/ Ref rebecca to MGon 12-13-2021 Anion gap [Moles/Vol] 9 mmol/L 9 - 17 mmol/L [employer] Calcium [Mass/Vol] 7.4 mg/dL Low 8.6 - 10. 4 mg/dL [employer] Chloride [Moles/Vol] 104 mmol/L 98 - 10 7 mmol/L [employer] CO2 [Moles/Vol] 22 mmol/L 20 - 31 mmol/L [employer] Creatinine [Mass/Vol] 0.56 mg/dL Low 0.70 - 1.20 mg/dL [employer] GFR >60 >60 mL/min [employer] GFR Non- >60 >60 mL/min [facility] GFR/1.73 sq M.predicted MDRD (S/P/Bld) [Vol rate/Area] [facility] Comment on above: Average GFR for 30-3 9 years old: 107 mL/min/1.73sq m Chronic Kidney Disease: <60 mL/min/1.73sq m Kidney failure: <15 mL/min/1.73sq m eGFR calculated using average adult body mass. Additional eGFR calculator available at: http://www.Cherry/multiple_crcl_2012.htm GFR/1.73 sq M.predicted MDRD (S/P/Bld) [Vol rate/Area] NOT REPORTED [facility] Glucose [Mass/Vol] 121 mg/dL High 70 - 99 mg/dL [facility] Interpretation and review of laboratory results Abnormal [employer] Potassium [Moles/Vol] 3.4 mmol/L Low 3.7 - 5.3 mmol/L [employer] Sodium [Moles/Vol] 135 mmol/L 135 - 144 mmol/L [facility] [employer] Urea nitrogen (BldV) [Mass/Vol] 9 mg/dL 6 - 20 mg/dL [employer] Urea nitrogen/Creatinine (Bld) [Mass ratio] NOT REPORTED [facility] C-Reactive Proteinon 022 CRP [Mass/Vol] 110.3 mg/L High 0.0 - 5.0 mg/L [facility] Interpretation and review of laboratory results Abnormal [facility] CBC AUTO DIFFon 12-13-2021 BASO # 0.0 103/ul Normal 0.0-0.1 [facility] Comment on above: Performed By: #### V ANCT #### [facility] [address] [address] [address] Amanda Cottrell Basophils/100 WBC (Bld) 0.2 % Normal 0.2-2.0 [facility] Comment on above: Performed By: #### V ANCT #### [facility] [address] [address] [address] Amanda Cottrell EO # 0.1 103/ul Normal 0.0-0.7 [facility] Comment on above: Performed By: #### V ANCT #### [facility] [address] [address] [address] Amanda Cottrell Eosinophils/100 WBC (Bld) 1.0 % Normal 0.9-7.0 [facility] Comment on above: Performed By: #### V ANCT #### [facility] [address] [address] [address] Amanda Cottrell Erythrocyte distribution width (RBC) [Ratio] 14.6 % Normal 11.0-15.0 [facility] Comment on above: Performed By: #### V ANCT #### [facility] [address] [address] [address] Amanda Cottrell Hematocrit (Bld) [Volume fraction] 31.3 % Critically low 42.0-54.0 [facility] Comment on above: Performed By: #### V ANCT #### [facility] [address] [address] [address] Amanda Cottrell Hemoglobin (Bld) [Mass/Vol] 10.4 g/dL Critically low 14.0-18.0 [facility] Comment on above: Performed By: #### V ANCT #### [facility] [address] [address] [address] Amanda Cottrell IG # 0.07 10e3/ul Critically high 0.00-0.03 [facility] Comment on above: Performed By: #### V ANCT #### [facility] [address] [address] [address] Amanda Cottrell IG % 0.8 % Critically high 0.0-0.[address] [facility] Comment on above: Performed By: #### V ANCT #### [facility] [address] [address] [address] Amanda Cottrell LYMPH # 0.5 103/ul Critically low 1.2-3.8 [facility] Comment on above: Performed By: #### V ANCT #### [facility] [address] [address] [address] Amanda Cottrell Lymphocytes/100 WBC (Bld) 5.0 % Critically low 20.5-60.0 [facility] Comment on above: Performed By: #### V ANCT #### [facility] [address] [address] [address] Amanda Cottrell MANUAL DIFF REQ NO Normal [facility] Comment on above: Performed By: #### V ANCT #### [facility] [address] [address] [address] Amanda Cottrell MCH (RBC) [Entitic mass] 27.5 pg Normal 25.9-34.0 [facility] Comment on above: Performed By: #### V ANCT #### [facility] [address] [address] [address] Amanda Cottrell MCHC (RBC) [Mass/Vol] 33.2 g/dL Normal 29.9-35.2 [facility] Comment on above: Performed By: #### V ANCT #### [facility] [address] [address] [address] Amanda Cottrell MCV (RBC) [Entitic vol] 82.8 fL Normal 80.0-94.0 [facility] Comment on above: Performed By: #### V ANCT #### [facility] [address] [address] [address] Amanda Cottrell MONO # 0.7 103/ul Normal 0.3-0.8 [facility] Comment on above: Performed By: #### V ANCT #### [facility] [address] [address] [address] Amanda Cottrell Monocytes/100 WBC (Bld) 7.9 % Normal 1.7-12.0 [facility] Comment on above: Performed By: #### V ANCT #### [facility] [address] [place] [address] Dr. Amanda Cottrell NEUT # 7.9 103/ul Critically high 1.4-6.[address] [facility] Comment on above: Performed By: #### V ANCT #### [facility] [address] [place] [address] Dr. Amanda Cottrell Neutrophils/100 WBC (Bld) 85.1 % Critically high 43.0-75.0 [facility] Comment on above: Performed By: #### V ANCT #### [facility] [address] [place] [address] Dr. Amanda Cottrell Platelet mean volume (Bld) [Entitic vol] 11.1 fL Normal 9.5-13.5 [facility] Comment on above: Performed By: #### V ANCT #### [facility] [address] [place] [address] Dr. Amanda Cottrell PLT 98 103/ul Critically low 150-450 [facility] Comment on above: Performed By: #### V ANCT #### [facility] [address] [place] [address] Dr. Amanda Cottrell RBC 3.78 106/ul Critically low 4.70-6.[address] [facility] Comment on above: Performed By: #### V ANCT #### [facility] [address] [place] [address] Dr. Amanda Cottrell WBC 9.2 103/ul Normal 4.0-11.0 [facility] Comment on above: Performed By: #### V ANCT #### [facility] [address] [place] [address] Dr. Amanda Cottrell CBC Auto Differentialon Absolute Eos # 0.14 [facility] Immature Granulocyte 0.03 [facility] Absolute Lymph # 0.86 Low [facility] Bas[facility] (Bld) [#/Vol] 10*3/uL [facility] Basophils/100 WBC (Bld) 0 % 0 - 2 % [facility] Differential Type NOT REPORTED [facility] Eosinophils/100 WBC (Bld) 2 % 1 - 4 % [facility] Hematocrit (Bld) [Volume fraction] 28.9 % Low 40.7 - 50.3 % [facility] Hemoglobin.gastrointesti nal spec 1 Ql (Stl) 10.1 g/dL Low 13.0 - 17.0 g/dL [facility] Immature granulocytes/100 WBC (Bld) 0 % 0 [facility] Interpretation and review of laboratory results Abnormal [facility] Lymphocytes/100 WBC (Bld) 10 % Low 24 - 43 % [facility] MCH (RBC) [Entitic mass] 28.3 pg 25. 2 - 33.5 pg [facility] MCHC (RBC) [Mass/Vol] 34.9 g/dL High 28.4 - 34.8 g/dL [facility] MCV (RBC) [Entitic vol] 81.0 fL Low 82.6 - 102.9 fL [facility] Monocytes/100 WBC (Bld) 10 % 3 - 12 % [facility] NRBC Automated 0.0 0.0 per 100 WBC [facility] Platelet distribution width (Bld) [Ratio] 14.5 % High 11.8 - 14.4 % [facility] Platelet Estimate NOT REPORTED [facility] Platelet mean volume (Bld) [Entitic vol] NOT REPORTED 8.1 - 13.5 fL [facility] Platelets (Bld) [#/Vol] See Reflexed IPF Result [facility] RBC (Bld) [#/Vol] 3.57 10*6/uL Low 4.21 - 5.7 7 m/uL [facility] RBC (Bld) [#/Vol] ANISOCYTOSIS PRESENT [facility] Comment on above: MICROCYTOSIS PRESENT Segmented neutrophils/100 WBC (Bld) 78 % High 36 - 65 % [facility] Segs Absolute 7.08 [facility] h WBC (Bld) [#/Vol] 9.1 10*3/uL [facility] WBC (Bld) [#/Vol] NOT REPORTED [facility] D-Dimer, Quantitativeon 02 D-Dimer, Quant 2.63 mg/L FEU [facility] Comment on above: When combined with a low clinical probability, a D dimer value of <0.50 mg/L FEU is considered negative for DVT and PE (negative predictive value of 98%, sensitivity of 97%). If this test is not being used to help rule out DVT and PE, then the following reference range should be utilized: 0.00 - 1.02 mg/L FEU. The [employer] D-Dimer assay is intended for use as an aid in the diagnosis of venous thromboembolism (DVT and PE) and the results should be interpreted in conjunction with the patient's medical history, clinical presentation, and other findings. Elevated levels of D-dimer activity can be seen in any state of coagulation activation and is not recommended in patients with therapeutic dose anticoagulant therapy for >24 hours, fibrinolytic therapy within the previous 7 days, trauma or surgery within the previous 4 weeks, disseminated malignancies, aortic aneurysm, sepsis, severe infections, pneumonia, severe skin infections, liver cirrhosis, advanced age, coronary disease, diabetes, and . A very low percentage of patients with DVT may yield D-dimer results below the cutoff of 0.5 mg/L FEU. This is known to be more prevalent in patients with distal DVT. [facility] Immature Platelet Fractionon 12-13-2021 Interpretation and review of laboratory results Abnormal [facility] Platelet, Fluorescence 112 Low Me [facility] Platelet, Immature Fraction 3.4 % 1.1 - 10.3 % [facility] Magnesiumon 12-13-2021 Magnesium [Mass/Vol] 1.9 mg/dL 1.6 - 2 .6 mg/dL [facility] No Panel Informationon 12-13 Left wrist: No fracture. Left ankle: No fracture. Moderate soft tissue swelling at the site of insertion of Achillis tendon to calcaneus. PN RIS CONSOLIDATED EXAMINATION: XRAY VIEWS OF THE LEFT WRIST; THREE XRAY VIEWS OF THE LEFT ANKLE 12/13/2021 8:23 pm COMPARISON: None. HISTORY: ORDERING SYSTEM PROVIDED HISTORY: swelling, pain TECHNOLOGIST PROVIDED HISTORY: swelling, pain FINDINGS: Left wrist: No acute fracture or dislocation is detected. The osseous structures are intact and properly aligned. No concerning lytic or sclerotic lesion is identified. The visualized joints appear unremarkable. Left ankle: No acute fracture or dislocation is detected. The osseous structures are intact and properly aligned. Talar dome is intact. Ankle mortise is congruent. No concerning lytic or sclerotic lesion is identified. The visualized joints appear unremarkable. There is moderate amount of soft tissue swelling at the site of insertion of Achillis tendon to calcaneus. [facility] Akanksha Samuels MD - 12/13/2021 EXAMINATION: XRAY VIEWS OF THE LEFT WRIST; THREE XRAY VIEWS OF THE LEFT ANKLE 12/13/2021 8:23 pm COMPARISON: None. HISTORY: ORDERING SYSTEM PROVIDED HISTORY: swelling, pain TECHNOLOGIST PROVIDED HISTORY: swelling, pain FINDINGS: Left wrist: No acute fracture or dislocation is detected. The osseous structures are intact and properly aligned. No concerning lytic or sclerotic lesion is identified. The visualized joints appear unremarkable. Left ankle: No acute fracture or dislocation is detected. The osseous structures are intact and properly aligned. Talar dome is intact. Ankle mortise is congruent. No concerning lytic or sclerotic lesion is identified. The visualized joints appear unremarkable. There is moderate amount of soft tissue swelling at the site of insertion of Achillis tendon to calcaneus. IMPRESSION: Left wrist: No fracture. Left ankle: No fracture. Moderate soft tissue swelling at the site of insertion of Achillis tendon to calcaneus. [employer] Work Phone: Radiology Study observation (narrative) [employer] Work Phone: No Panel InformationOrdered By: Akanksha Santoro on 12-13-2021 [employer] Work Phone: PROF CHEM 8 (BAS METB)on Anion gap [Moles/Vol] 9.4 mmol/L Normal [facility] Comment on above: Performed By: #### B MP #### [facility] [address] [place] [address] Dr. Amanda Cottrell Calcium [Mass/Vol] 7.4 mg/dL Critically low 8.4-10.2 [facility] Comment on above: Performed By: #### B MP #### [facility] [address] [address] [address] Amanda Cottrell Chloride [Moles/Vol] 102 mmol/L Normal 98-107 [facility] Comment on above: Performed By: #### B MP #### [facility] [address] [address] [address] Amanda Cottrell CO2 [Moles/Vol] 24.8 mmol/L Normal 22.0-30.[address] [facility] Comment on above: Performed By: #### B MP #### [facility] [address] [address] [address] Amanda Cottrell Creatinine [Mass/Vol] 0.65 mg/dL Critically low 0.66-1.25 [facility] Comment on above: Performed By: #### B MP #### [facility] [address] [address] [address] Amanda Cottrell EGFR-AF [facility] HEL[facility] >60 Normal >=[address] [facility] Comment on above: Performed By: #### B MP #### [facility] [address] [address] [address] Amanda Cottrell EGFR-NON AF [facility] >60 Normal >=60 [facility] Comment on above: Performed By: #### B MP #### [facility] [address] [place] [address] Dr. Amanda Cottrell Glucose [Mass/Vol] 115 mg/dL Critically high 74-106 [facility] Comment on above: Performed By: #### B MP #### [facility] [address] [address] [address] Amanda Cottrell Potassium [Moles/Vol] 3.2 mmol/L Critically low 3.4-5.0 [facility] Comment on above: Performed By: #### B MP #### [facility] [address] [address] [address] Amanda Cottrell Sodium [Moles/Vol] 133 mmol/L Critically low 137-145 [facility] Comment on above: Performed By: #### B MP #### [facility] [address] [address] [address] Amanda Cottrell Urea nitrogen [Mass/Vol] 9.0 mg/dL Normal 9.0-20.0 [facility] Comment on above: Performed By: #### B MP #### [facility] [address] [address] [address] Amanda Cottrell Urea nitrogen/Creatinine [Mass ratio] 13.8 mg/mg Normal [facility] Comment on above: Performed By: #### B MP #### [facility] [address] [address] [address] Amanda Cottrell SPECIMEN REJECTIONon 022 - NOT REPORTED [facility] Ordered Test DIGNA,CHANO [facility] Reason for Rejection Unable to perform testing: Specimen clotted. [facility] Specimen source Nom (Unsp spec) .BLOOD [facility] Troponinon 12-13-2021 Troponin Interp NOT REPORTED [facility] Troponin T NOT REPORTED <0.03 ng/mL [facility] Troponin, High Sensitivity <6 0 - 22 ng/L [facility] Comment on above: High Sensitivity Troponin values cannot be compared with other Troponin methodologies. Patients with high levels of Biotin oral intake (i.e >5mg/day) may have falsely decreased Troponin levels. Samples collected within 8 hours of biotin intake may require additional information for diagnosis. [facility] VANCOMYCIN TROUGHon 12-13-19 22 VANCOMYCIN TROUGH 9.8 ug/ml Normal 5.0-20.0 [facility] Comment on above: Performed By: #### V ANCT #### [facility] [address] [address] [address] Amanda Cottrell CBC W MANUAL DIFFon 12-12-19 22 ANISOCYTOSIS 1+ Normal [facility] Comment on above: Performed By: #### C BCMAN #### [facility] [address] [address] [address] Amanda Cottrell ATYPICAL LYMPH # Normal [facility] Comment on above: Performed By: #### C BCMAN #### [facility] [address] [id number] Amanda Cottrell ATYPICAL LYMPH % Normal [facility] Comment on above: Performed By: #### C BCMAN #### [facility] [address] [place] [address] Dr. Amanda Cottrell BAND # 0.7 103/ul Critically high 0.0-0.3 The [facility] Comment on above: Performed By: #### C BCMACY #### [facility] [address] [place] [address] Dr. Amanda Cottrell BAND % 8 % Critically high 0-5 The [facility] Comment on above: Performed By: #### C MELCHOR #### [facility] [address] [place] [address] Dr. Amanda Cottrell BASOM # 0.00 103/ul Normal 0.00-0.10 [facility] Comment on above: Performed By: #### C MELCHOR #### [facility] [address] [place] [address] Dr. Amanda Cottrell BASOM % 0.0 % Critically low 0.2-2.0 [facility] Comment on above: Performed By: #### C MELCHOR #### [facility] [address] [place] [address] Dr. Amanda Cottrell BLAST # Normal [facility] Comment on above: Performed By: #### C MELCHOR #### [facility] [address] [place] [address] Dr. Amanda Cottrell BLAST % Normal [facility] Comment on above: Performed By: #### C MELCHOR #### [facility] [address] [place] [address] Dr. Amanda Cottrell CORRECTED WBC Normal 4.0-11.0 [facility] Comment on above: Performed By: #### C MELCHOR #### [facility] [address] [place] [address] Dr. Amanda Cottrell EOS # 0.00 103/ul Normal 0.00-0.70 [facility] Comment on above: Performed By: #### C MELCHOR #### [facility] [address] [place] [address] Dr. Amanda Cottrell EOS% 0.0 % Critically low 0.9-7.0 [facility] Comment on above: Performed By: #### C MELCHOR #### [facility] [address] [address] [address] Amanda Cottrell HCT 28.7 % Critically low 42.0-54.0 [facility] Comment on above: Performed By: #### C MELCHOR #### [facility] [address] [address] [address] Amanda Cottrell HGB 9.5 g/dl Critically low 14.0-18.0 [facility] Comment on above: Performed By: #### C MELCHOR #### [facility] [address] [address] [address] Amanda Ctotrell LYMPHM # 0.49 103/ul Critically low 1.20-3.[address] [facility] Comment on above: Performed By: #### C MELCHOR #### [facility] [address] [place] [address] Dr. Amanda Cottrell LYMPHM% 6.0 % Critically low 20.5-60.0 [facility] Comment on above: Performed By: #### C MELCHOR #### [facility] [address] [address] [address] Amanda Cottrell MCH 27.4 pg Normal 25.9-34.0 [facility] Comment on above: Performed By: #### C MELCHOR #### [facility] [address] [place] [address] Dr. Amanda Cottrell MCHC 33.1 g/dl Normal 29.9-35.2 [facility] Comment on above: Performed By: #### C MELCHOR #### [facility] [address] [place] [address] Dr. Amanda Cottrell MCV 82.7 fL Normal 80.0-94.0 [facility] Comment on above: Performed By: #### C MELCHOR #### [facility] [address] [place] [address] Dr. Amanda Cottrell METAMYELOCYTE # Normal The [facility] Comment on above: Performed By: #### C MELCHOR #### [facility] [address] [address] [address] Amanda Cottrell METAMYELOCYTE % Normal [facility] Comment on above: Performed By: #### C MELCHOR #### [facility] [address] [address] [address] Amanda Cottrell MONOM# 0.74 103/ul Normal 0.30-0.80 [facility] Comment on above: Performed By: #### C MELCHOR #### [facility] [address] [address] [address] Amanda Cottrell MONOM% 9.0 % Normal 1.7-12.0 [facility] Comment on above: Performed By: #### C MELCHOR #### [facility] [address] [address] [address] Amanda Cottrell MPV 10.5 fL Normal 9.5-13.5 [facility] Comment on above: Performed By: #### C MELCHOR #### [facility] [address] [place] [address] Dr. Amanda Cottrell MYELOCYTE # Normal [facility] Comment on above: Performed By: #### C MELCHOR #### [facility] [address] [address] [address] Amanda Cottrell MYELOCYTE % Normal [facility] Comment on above: Performed By: #### C MELCHOR #### [facility] [address] [address] [address] Amanda Cottrell NRBC Normal [facility] Comment on above: Performed By: #### C MELCHOR #### [facility] [address] [place] [address] Dr. Amanda Cottrell PLT 95 103/ul Critically low 150-450 [facility] Comment on above: Performed By: #### C MELCHOR #### [facility] [address] [address] [address] Amanda Cottrell RBC 3.47 106/ul Critically low 4.70-6.10 [facility] Comment on above: Performed By: #### C MELCHOR #### [facility] [address] [place] [address] Dr. Amanda Cottrell RDW 14.3 % Normal 11.0-15.0 [facility] Comment on above: Performed By: #### C BCMAN #### [facility] [address] [place], [place] [address] Dr. Amanda Cottrell SEG # 6.31 103/ul Normal 1.40-6.50 [facility] Comment on above: Performed By: #### C BCMAN #### [facility] [address] [place], [place] [address] Dr. Amanda Cottrell SEG % 77.0 % Critically high 43.0-75.[address] [facility] Comment on above: Performed By: #### C BCMAN #### [facility] [address] [place], [place] [address] Dr. Amanda Cottrell WBC 8.2 103/ul Normal 4.0-11.0 [facility] Comment on above: Performed By: #### C BCMAN #### [facility] [address] [place], [place] [address] Dr. Amanda Cottrell ECHO LIMITED STUDYon 022 ECHO LIMITED STUDY Patient: TIP ANSARI Exam Date: 12/12/2021 : 1980 Gender:M Ordering : DR EMY REBOLLEDO . Admission #: [id number] Family : Order #: [id number] CLICK HERE TO VIEW EXAM ECHOCARDIOGRAM REPORT PROCEDURE: CARDIO PULMONARY ECHO LIMITED STUDY INDICATIONS: R/O vegetation, IV drug use, septic emboli COMPARISON: None. DESCRIPTION: Limited ECHOCARDIOGRAM Real-time transthoracic echocardiography with 2D and M-mode performed. QUALITY: Technical quality was adequate. LEFT VENTRICLE: Normal systolic function. LV EF: DIASTOLIC: ATRIAL SEPTUM: LEFT ATRIUM: RIGHT ATRIUM: RIGHT VENTRICLE: Normal size. Normal systolic function. TRICUSPID VALVE: Normal mobility and thickness. No vegetations are present. MITRAL VALVE: Normal mobility and thickness. No vegetations are present. AORTIC VALVE: Normal trileaflet appearance. No vegetations are present. AORTIC ROOT: PULMONIC VALVE: Not well visualized. PERICARDIUM: No effusion. IVC: PLEURA: CONCLUSION: 1. Normal ventricular systolic function. 2. No gross evidence of vegetations seen. 3. No pericardial effusion. 4. Patient is tachycardic. Study is limited by suboptimal image quality. Dictated by: Luis Moyer M.D. on 12/12/2021 at 16:12 Approved by: Luis Moyer M.D. on 12/12/2021 at 16:15 Normal [facility] PROF 14(COMP METB)on 022 Albumin [Mass/Vol] 1.6 g/dL Critically low 3.5-5.0 [facility] Comment on above: Performed By: #### V ANCT #### [facility] [address] [place] [address] Dr. Amanda Cottrell Albumin/Globulin [Mass ratio] 0.4 {ratio} Normal [facility] Comment on above: Performed By: #### V ANCT #### [facility] [address] [place] [address] Dr. Amanda Cottrell ALP [Catalytic activity/Vol] 71 U/L Normal 38-126 [facility] Comment on above: Performed By: #### V ANCT #### [facility] [address] [place] [address] Dr. Amanda Cottrell ALT [Catalytic activity/Vol] 30 U/L Normal 21-72 [facility] Comment on above: Performed By: #### V ANCT #### [facility] [address] [place] [address] Dr. Amanda Cottrell Anion gap [Moles/Vol] 10.0 mmol/L Normal [facility] Comment on above: Performed By: #### V ANCT #### [facility] [address] [place] [address] Dr. Amanda Cottrell AST [Catalytic activity/Vol] 21 U/L Normal 17-59 [facility] Comment on above: Performed By: #### V ANCT #### [facility] [address] [place] [address] Dr. Amanda Cottrell Bilirubin [Mass/Vol] 0.7 mg/dL Normal 0.2-1.3 [facility] Comment on above: Performed By: #### V ANCT #### [facility] [address] [place] [address] Dr. Amanda Cottrell Calcium [Mass/Vol] 7.8 mg/dL Critically low 8.4-10.2 [facility] Comment on above: Performed By: #### V ANCT #### [facility] [address] [address] [address] Amanda Cottrell Chloride [Moles/Vol] 100 mmol/L Normal 98-107 [facility] Comment on above: Performed By: #### V ANCT #### [facility] [address] [address] [address] Amanda Cottrell CO2 [Moles/Vol] 23.1 mmol/L Normal 22.0-30.[address] [facility] Comment on above: Performed By: #### V ANCT #### [facility] [address] [address] [address] Amanda Cottrell Creatinine [Mass/Vol] 0.67 mg/dL Normal 0.66-1.25 [facility] Comment on above: Performed By: #### V ANCT #### [facility] [address] [place] [address] Dr. Amanda Cottrell EGFR-AF [facility] >60 Normal >=[address] [facility] Comment on above: Performed By: #### V ANCT #### [facility] [address] [address] [address] Amanda Cottrell EGFR-NON AF [facility] >60 Normal >=60 [facility] Comment on above: Performed By: #### V ANCT #### [facility] [address] [place] [address] Dr. Amanda Cottrell Globulin (S) [Mass/Vol] 3.8 g/dL Normal [facility] Comment on above: Performed By: #### V ANCT #### [facility] [address] [place] [address] Dr. Amanda Cottrell Glucose [Mass/Vol] 113 mg/dL Critically high 74-106 [facility] Comment on above: Performed By: #### V ANCT #### [facility] [address] [address] [address] Amanda Cottrell Potassium [Moles/Vol] 3.1 mmol/L Critically low 3.4-5.0 [facility] Comment on above: Performed By: #### V ANCT #### [facility] [address] [address] [address] Amanda Cottrell Protein [Mass/Vol] 5.4 g/dL Critically low 6.1-8.2 [facility] Comment on above: Performed By: #### V ANCT #### [facility] [address] [address] [address] Amanda Cottrell Sodium [Moles/Vol] 130 mmol/L Critically low 137-145 [facility] Comment on above: Performed By: #### V ANCT #### [facility] [address] [address] [address] Amanda Cottrell Urea nitrogen [Mass/Vol] 12.0 mg/dL Normal 9.0-20.0 [facility] Comment on above: Performed By: #### V ANCT #### [facility] [address] [place] [address] Dr. Amanda Cottrell Urea nitrogen/Creatinine [Mass ratio] 17.9 mg/mg Normal [facility] Comment on above: Performed By: #### V ANCT #### [facility] [address] [place] [address] Dr. Amanda Cottrell XR CHEST 1 Von 12-12-2021 XR CHEST 1 V EXAM: XR CHEST 1 V HISTORY: Peripherally inserted central venous catheter in situ COMPARISON: 12/11/2021 TECHNIQUE: AP portable erect FINDINGS: LUNGS: Mild diffuse patchy parenchymal opacities with peripheral lobular septal thickening VASCULATURE: No increased pulmonary vasculature. PLEURA: No pneumothorax, effusion, or pleural thickening. CARDIAC: No cardiomegaly or cardiac silhouette abnormality. MEDIASTINUM: No visible mass or adenopathy. BONES: No fracture or visible bone lesion. OTHER: Right PICC catheter extends cranially off the field of view IMPRESSION: PICC catheter tip extends cranially off the view in the right jugular vein. Repositioning is required Electronically authenticated by: JOELLE MEDEIROS Date: 2021-12-12 12:09 Normal [facility] BLOOD CULTURE ID PANELon Bottle Set: Set 1 Normal [facility] Comment on above: Performed By: #### V ANCT #### [facility] [address] [place] [address] Dr. Amanda Cottrell BLOOD CULTURE ID PANEL SUBSE Kory 12-11-2021 A. baumannii Not detected [facility] Comment on above: Performed By: #### B CIDSUB #### [facility] [address] [place] [address] Dr. Amanda Cottrell Performed By: #### V ANCT #### [facility] [address] [place] [address] Dr. Amanda Cottrell BCID CONTROLS PASSED Normal [facility] Comment on above: Performed By: #### B CIDSUB #### [facility] [address] [place] [address] Dr. Amanda Cottrell Performed By: #### V ANCT #### [facility] [address] [place] [address] Dr. Amanda Cottrell BCIDBTHD BLOOD CULTURE BOTTLE INFORMATION Normal [facility] Comment on above: Performed By: #### B CIDSUB #### [facility] [address] [place] [address] Dr. Amanda Cottrell Performed By: #### V ANCT #### [facility] [address] [place] [address] Dr. Amanda Cottrell BCIDHD1 ANTIMICROBIAL RESISTANCE GENES [facility] Comment on above: Performed By: #### B CIDSUB #### [facility] [address] [place] [address] Dr. Amanda Cottrell Performed By: #### V ANCT #### [facility] [address] [place] [address] Dr. Amanda Cottrell BCIDHD2 SEE BELOW [facility] Comment on above: Result Comment: KPC- carbapenem resistance gene, mecA- methecillin resistance gene, van A/B- vancomycin resistance gene Note: Antimicrobial resitance can occur via multiple mechanisms. A Not Detected result for the [employer] antomicrobial resistance gene assays does not indicate antimicrobial susceptibility. Subculturing is required for specis identificationand susceptibility testing of isolates. Performed By: #### B CIDSUB #### [facility] [address] [place] [address] Dr. Amanda Cottrell Performed By: #### V ANCT #### [facility] [address] [address] [address] Amanda Cottrell BCIDHD3 Positive [facility] Comment on above: Performed By: #### B CIDSUB #### [facility] [address] [address] [address] Amanda Cottrell Performed By: #### V ANCT #### [facility] [address] [address] [address] Amanda Cottrell BCIDHD4 Negative [facility] Comment on above: Performed By: #### B CIDSUB #### [facility] [address] [address] [address] Amanda Cottrell Performed By: #### V ANCT #### [facility] [address] [place] [address] Dr. Amanda Cottrell BCIDHD5 YEAST Normal [facility] Comment on above: Performed By: #### B CIDSUB #### [facility] [address] [place] [address] Dr. Amanda Cottrell Performed By: #### V ANCT #### [facility] [address] [place] [address] Dr. Amanda Cottrell BCIDHD6 SEE BELOW [facility] Comment on above: Result Comment: Note : All genus and species BCID [employer] results will be verified post subculturing via Maldi-Tof MS testing methodology. Performed By: #### B CIDSUB #### [facility] [address] [address] [address] Amanda Cottrell Performed By: #### V ANCT #### [facility] [address] [place] [address] Dr. Amanda Cottrell Bottle Set: Set 2 [facility] Comment on above: Performed By: #### B CIDSUB #### [facility] [address] [place] [address] Dr. Amanda Cottrell Bottle: Aerobic [facility] Comment on above: Performed By: #### B CIDSUB #### [facility] [address] [address] [address] Amanda Cottrell Performed By: #### V ANCT #### [facility] [address] [place] [address] Dr. Amanda Cottrell Bottle: Anaerobic Normal [facility] Comment on above: Performed By: #### B CIDSUB #### [facility] [address] [place] [address] Dr. Amanda Cottrell Nathaniel albicans Not detected Normal [facility] Comment on above: Performed By: #### B CIDSUB #### [facility] [address] [place] [address] Dr. Amanda Cottrell Performed By: #### V ANCT #### [facility] [address] [place] [address] Dr. Amanda Cottrell Nathaniel glabrata Not detected Normal [facility] Comment on above: Performed By: #### B CIDSUB #### [facility] [address] [place] [address] Dr. Amanda Cottrell Performed By: #### V ANCT #### [facility] [address] [place] [address] Dr. Amanda Cottrell Nathaniel Krusei Not detected Normal [facility] Comment on above: Performed By: #### B CIDSUB #### [facility] [address] [place] [address] Dr. Amanda Cottrell Performed By: #### V ANCT #### [facility] [address] [place] [address] Dr. Amanda Cottrell Nathaniel Parapsilosis Not detected Normal [facility] Comment on above: Performed By: #### B CIDSUB #### [facility] [address] [place] [address] Dr. Amanda Cottrell Performed By: #### V ANCT #### [facility] [address] [place] [address] Dr. Amanda Cottrell Nathaniel Tropicalis Not detected Normal [facility] Comment on above: Performed By: #### B CIDSUB #### [facility] [address] [place] [address] Dr. Amanda Cottrell Performed By: #### V ANCT #### [facility] [address] [address] [address] Amanda Cottrell E. Cloacae complex Not detected Normal [facility] Comment on above: Performed By: #### B CIDSUB #### [facility] [address] [address] [address] Amanda Cottrell Performed By: #### V ANCT #### [facility] [address] [place] [address] Dr. Amanda Cottrell Enterobacteriaceae Not detected Normal [facility] Comment on above: Performed By: #### B CIDSUB #### [facility] [address] [address] [address] Amanda Cottrell Performed By: #### V ANCT #### [facility] [address] [place] [address] Dr. Amanda Cottrell Enterococcus Not detected Normal [facility] Comment on above: Performed By: #### B CIDSUB #### [facility] [address] [place] [address] Dr. Amanda Cottrell Performed By: #### V ANCT #### [facility] [address] [place] [address] Dr. Amanda Cottrell Escheria coli Not detected Normal [facility] Comment on above: Performed By: #### B CIDSUB #### [facility] [address] [place] [address] Dr. Amanda Cottrell Performed By: #### V ANCT #### [facility] [address] [place] [address] Dr. Amanda Cottrell K. oxytoca Not detected Normal [facility] Comment on above: Performed By: #### B CIDSUB #### [facility] [address] [address] [address] Amanda Cottrell Performed By: #### V ANCT #### [facility] [address] [place] [address] Dr. Amanda Cottrell K. pneumoniae Not detected Normal [facility] Comment on above: Performed By: #### B CIDSUB #### [facility] [address] [place] [address] Dr. Amanda Cottrell Performed By: #### V ANCT #### [facility] [address] [place] [address] Dr. Amanda Cottrell KPC Resistant Gene Not Applicable Normal [facility] Comment on above: Performed By: #### B CIDSUB #### [facility] [address] [place] [address] Dr. Amanda Cottrell Performed By: #### V ANCT #### [facility] [address] [place] [address] Dr. Amanda Cottrell List. monocytogenes Not detected Normal [facility] Comment on above: Performed By: #### B CIDSUB #### [facility] [address] [place] [address] Dr. Amanda Cottrell Performed By: #### V ANCT #### [facility] [address] [place] [address] Dr. Amanda Cottrell mecA Resistant Gene Detected Critically abnormal [facility] Comment on above: Performed By: #### B CIDSUB #### [facility] [address] [place] [address] Dr. Amanda Cottrell Performed By: #### V ANCT #### [facility] [address] [place] [address] Dr. Amanda Cottrell Proteus Not detected Normal [facility] Comment on above: Performed By: #### B CIDSUB #### [facility] [address] [place] [address] Dr. Amanda Cottrell Performed By: #### V ANCT #### [facility] [address] [place] [address] Dr. Amanda Cottrell Pseud. aeruginosa Not detected Normal [facility] Comment on above: Performed By: #### B CIDSUB #### [facility] [address] [place] [address] Dr. Amanda Cottrell Performed By: #### V ANCT #### [facility] [address] [place] [address] Dr. Amanda Cottrell Seratia marcescens Not detected Normal [facility] Comment on above: Performed By: #### B CIDSUB #### [facility] [address] [address] [address] Amanda Cottrell Performed By: #### V ANCT #### [facility] [address] [place] [address] Dr. Amanda Cottrell Site: LEFT HAND Normal [facility] Comment on above: Performed By: #### B CIDSUB #### [facility] [address] [place] [address] Dr. Amanda Cottrell Site: L WRIST Normal [facility] Comment on above: Performed By: #### B CIDSUB #### [facility] [address] [address] [address] Amanda Cottrell Performed By: #### V ANCT #### [facility] [address] [place] [address] Dr. Amanda Cottrell Site: L HAND Normal [facility] Comment on above: Performed By: #### B CIDSUB #### [facility] [address] [place] [address] Dr. Amanda Cottrell Staph. aureus Detected Critically abnormal [facility] Comment on above: Performed By: #### B CIDSUB #### [facility] [address] [place] [address] Dr. Amanda Cottrell Performed By: #### V ANCT #### [facility] [address] [place] [address] Dr. Amanda Cottrell Staphylococcus Detected Critically abnormal [facility] Comment on above: Performed By: #### B CIDSUB #### [facility] [address] [place] [address] Dr. Amanda Cottrell Performed By: #### V ANCT #### [facility] [address] [place] [address] Dr. Amanda Cottrell Strep. agalactiae Not detected Normal [facility] Comment on above: Performed By: #### B CIDSUB #### [facility] [address] [place] [address] Dr. Amanda Cottrell Performed By: #### V ANCT #### [facility] [address] [place] [address] Dr. Amanda Cottrell Strep. pneumoniae Not detected Normal [facility] Comment on above: Performed By: #### B CIDSUB #### [facility] [address] [place] [address] Dr. Amanda Cottrell Performed By: #### V ANCT #### [facility] [address] [place] [address] Dr. Amanda Cottrell Strep. pyogenes Not detected Normal [facility] Comment on above: Performed By: #### B CIDSUB #### [facility] [address] [place] [address] Dr. Amanda Cottrell Performed By: #### V ANCT #### [facility] [address] [place] [address] Dr. Amanda Cottrell Streptococcus Not detected Normal [facility] Comment on above: Performed By: #### B CIDSUB #### [facility] [address] [place] [address] Dr. Amanda Cottrell Performed By: #### V ANCT #### [facility] [address] [place] [address] Dr. Amanda Lux/Esdras Resist. Gene Not Applicable Normal [facility] Comment on above: Performed By: #### B CIDSUB #### [facility] [address] [place] [address] Dr. Amanda Cottrell Performed By: #### V ANCT #### [facility] [address] [place] [address] Dr. Amanda Cottrell CBC AUTO DIFFon 12-11-2021 BASO # 0.0 103/ul Normal 0.0-0.1 [facility] Comment on above: Performed By: #### C BC #### [facility] [address] [place] [address] Dr. Amanda Cottrell Basophils/100 WBC (Bld) 0.2 % Normal 0.2-2.0 [facility] Comment on above: Performed By: #### C BC #### [facility] [address] [place] [address] Dr. Amanda Cottrell EO # 0.0 103/ul Normal 0.0-0.7 [facility] Comment on above: Performed By: #### C BC #### [facility] [address] [place] [address] Dr. Amanda Cottrell Eosinophils/100 WBC (Bld) 0.1 % Critically low 0.9-7.0 [facility] Comment on above: Performed By: #### C BC #### [facility] [address] [place] [address] Dr. Amanda Cottrell Erythrocyte distribution width (RBC) [Ratio] 14.2 % Normal 11.0-15.0 [facility] Comment on above: Performed By: #### C BC #### [facility] [address] [place] [address] Dr. Amanda Cottrell Hematocrit (Bld) [Volume fraction] 34.2 % Critically low 42.0-54.0 [facility] Comment on above: Performed By: #### C BC #### [facility] [address] [place] [address] Dr. Amanda Cottrell Hemoglobin (Bld) [Mass/Vol] 11.9 g/dL Critically low 14.0-18.0 [facility] Comment on above: Performed By: #### C BC #### [facility] [address] [place] [address] Dr. Amanda Cottrell IG # 0.15 10e3/ul Critically high 0.00-0.03 [facility] Comment on above: Performed By: #### C BC #### [facility] [address] [place] [address] Dr. Amanda Cottrell IG % 1.2 % Critically high 0.0-0.[address] [facility] Comment on above: Performed By: #### C BC #### [facility] [address] [place] [address] Dr. Amanda Cottrell LYMPH # 0.6 103/ul Critically low 1.2-3.8 [facility] Comment on above: Performed By: #### C BC #### [facility] [address] [place] [address] Dr. Amanda Cottrell Lymphocytes/100 WBC (Bld) 4.5 % Critically low 20.5-60.0 [facility] Comment on above: Performed By: #### C BC #### [facility] [address] [place] [address] Dr. Amanda Cottrell MANUAL DIFF REQ NO Normal [facility] Comment on above: Performed By: #### C BC #### [facility] [address] [place] [address] Dr. Amanda Cottrell MCH (RBC) [Entitic mass] 28.1 pg Normal 25.9-34.0 [facility] Comment on above: Performed By: #### C BC #### [facility] [address] [place] [address] Dr. Amanda Cottrell MCHC (RBC) [Mass/Vol] 34.8 g/dL Normal 29.9-35.2 [facility] Comment on above: Performed By: #### C BC #### [facility] [address] [place] [address] Dr. Amanda Cottrell MCV (RBC) [Entitic vol] 80.9 fL Normal 80.0-94.0 [facility] Comment on above: Performed By: #### C BC #### [facility] [address] [place] [address] Dr. Amanda Cottrell MONO # 0.9 103/ul Critically high 0.3-0.[address] [facility] Comment on above: Performed By: #### C BC #### [facility] [address] [place] [address] Dr. Amanda Cottrell Monocytes/100 WBC (Bld) 6.8 % Normal 1.7-12.0 [facility] Comment on above: Performed By: #### C BC #### [facility] [address] [place] [address] Dr. Amanda Cottrell NEUT # 11.0 103/ul Critically high 1.4-6.[address] [facility] Comment on above: Performed By: #### C BC #### [facility] [address] [place] [address] Dr. Amanda Cottrell Neutrophils/100 WBC (Bld) 87.2 % Critically high 43.0-75.0 [facility] Comment on above: Performed By: #### C BC #### [facility] [address] [address] [address] Amanda Cottrell Platelet mean volume (Bld) [Entitic vol] 10.6 fL Normal 9.5-13.5 [facility] Comment on above: Performed By: #### C BC #### [facility] [id number] Amanda Cottrell PLT 144 103/ul Critically low 150-450 [facility] Comment on above: Performed By: #### C BC #### [facility] [id number] Amanda Cottrell RBC 4.23 106/ul Critically low 4.70-6.[address] [facility] Comment on above: Performed By: #### C BC #### [facility] [id number] Amanda Cottrell WBC 12.6 103/ul Critically high 4.0-11.[address] [facility] Comment on above: Performed By: #### C BC #### [facility] [id number] Amanda Cottrell CT CHEST WO CONon 12-11-2021 CT CHEST WO CON EXAMINATION: CT CHES T WO CON HISTORY: Acute chest pain. Abnormal chest x-ray. COMPARISON: Chest x-ray 12/11/2021 at 4:32 PM TECHNIQUE: CT examination of the chest without IV contrast. Coronal and sagittal reformations were performed. Dose reduction techniques were achieved by using automated exposure control and/or adjustment of mA and/or kV according to patient size and/or use of iterative reconstruction technique. FINDINGS: Bilateral multilobar, multifocal nodular airspace opacities are present, the larger of which contain internal cavitation, likely secondary to septic emboli. The larger areas include the right apex measuring 2.3 cm, lateral apical posterior segment of the left upper lobe measuring 2.9 cm and anterior segment of the right upper lobe measuring 2.3 cm. The pleural spaces are clear. There are multiple borderline-enlarged mediastinal lymph nodes which are nonspecific, likely reactive. Congenital interbody fusion T11-T12 is noted. IMPRESSION: 1. Bilateral multilobar, multifocal scattered nodular airspace opacities, the larger of which contain internal cavitation. These findings are likely secondary to multifocal septic emboli. 2. Borderline enlarged mediastinal lymph nodes are present which are nonspecific, likely reactive. Electronically authenticated by: JOSE RAFAEL ALONSO Date: 2021-12-11 18:07 Normal [facility] CULTURE BLOODon 12-11-2021 Microscopic examination of blood, culture Specimen Comments: LEFT HAND Culture Observations: S.aureus in aerobic and anaerobic bottles.See#[id number] for ASTs. Isolate 1 Staphylococcus aureus Growth of Normal [facility] Comment on above: Performed By: #### C MELCHOR #### [facility] [address] [address] [address] Amanda Cottrell CULTURE STOOLon 12-11-2021 CULTURE STOOL Culture Observations : NO GROWTH SALMONELLA, SHIGELLA, YERSINIA, CAMPY, E.COLI 0157, OR STAPH AT 72 HRS Normal [facility] Comment on above: Performed By: #### C MELCHOR #### [facility] [address] [address] [address] Amanda Cottrell Covid-19 PCR (CVDTB)on 11-13 SARS-CoV-2 (COVID-19) RNA CHARO+probe Ql (Unsp spec) Not detected Normal NOT DETECTED [facility] Comment on above: Result Comment: This test is not yet approved or cleared by the [place] FDA. When there are no FDA-approved or cleared tests available, and other criteria are met, FDA can make tests available under an emergency access mechanism called an Emergency Use Authorization (EUA). The EUA for this test is supported by the [employer] Technician of Health and Human Service's (HHS's) declaration that circumstances exist to justify the emergency use of in vitro diagnostics for the detection and/or diagnosis of the virus that causes COVID-19. This EUA will remain in effect (meaning this test can be used) for the duration of the COVID-19 declaration justifying emergency of IVDs, unless it is terminated or revoked by FDA (after which the test may no longer be used). When diagnostic testing is negative, the possibility of a false negative should be considered in the context of a patient's recent exposures and the presence of clinical signs and symptoms consistent with SARS-CoV-2. Performed By: #### C BCMAN #### [facility] [address] [place] [address] Dr. Amanda Cottrell DRUG SCREEN RAPID (URINE)on 12-11-2021 AMP Positive Abnormal NEGATIVE [facility] Comment on above: Performed By: #### D RUGRPD #### [facility] [address] [place] [address] Dr. Amanda Cottrell BAR Negative Normal NEGATIVE [facility] Comment on above: Performed By: #### D RUGRPD #### [facility] [address] [place] [address] Dr. Amanda Cottrell BUP Negative Normal NEGATIVE [facility] Comment on above: Performed By: #### D RUGRPD #### [facility] [address] [place] [address] Dr. Amanda Cottrell BZO Negative Normal NEGATIVE [facility] Comment on above: Performed By: #### D RUGRPD #### [facility] [address] [place] [address] Dr. Amanda Cottrell CARLINE Negative Normal NEGATIVE [facility] Comment on above: Performed By: #### D RUGRPD #### [facility] [address] [place] [address] Dr. Amanda Cottrell CUT-OFFS SEE BELOW Normal [facility] Comment on above: Result Comment: AMP (Amphetamine): 500ng/mL, BAR (Barbituates): 200 ng/mL, BZO (Benzodiazepines): 150 ng/mL, BUP (Buprenorphine): 10 ng/mL, CARLINE (Cocaine): 150 ng/mL, mAMP (Methamphetamine): 500 ng/mL, MTD (Methadone): 200 ng/mL, OPI (Opiates): 100 ng/mL, OXY (Oxycodone): 100 ng/mL, PCP (Phencyclidine): 25 ng/mL, PPX (Propoxyphene): 300 ng/mL, THC (Cannabinoids): 50 ng/mL, TCA (Trycyclic Antidepressants): 300 ng/mL Performed By: #### D RUGRPD #### [facility] [address] [place] [address] Dr. Amanda Cottrell DRUG CUT HEADER DRUG CLASS TEST SYSTEM CUT-OFF CONCENTRATIONS ARE FOLLOWS: Normal [facility] Comment on above: Performed By: #### D RUGRPD #### [facility] [address] [place] [address] Dr. Amanda Cottrell mAMP Positive Abnormal NEGATIVE [facility] Comment on above: Performed By: #### D RUGRPD #### [facility] [address] [place] [address] Dr. Amanda Cottrell MTD Negative Normal NEGATIVE [facility] Comment on above: Performed By: #### D RUGRPD #### [facility] [address] [place] [address] Dr. Amanda Cottrell OPI Negative Normal NEGATIVE [facility] Comment on above: Performed By: #### D RUGRPD #### [facility] [address] [place] [address] Dr. Amanda Cottrell OXY Negative Normal NEGATIVE [facility] Comment on above: Performed By: #### D RUGRPD #### [facility] [address] [place] [address] Dr. Amanda Cottrell PCP Negative Normal NEGATIVE [facility] Comment on above: Performed By: #### D RUGRPD #### [facility] [address] [place] [address] Dr. Amanda Cottrell PPX Negative Normal NEGATIVE [facility] Comment on above: Performed By: #### D RUGRPD #### [facility] [address] [place] [address] Dr. Amanda Cottrell TCA Negative Normal NEGATIVE [facility] Comment on above: Performed By: #### D RUGRPD #### [facility] [address] [place] [address] Dr. Amanda Cottrell THC Positive Abnormal NEGATIVE [facility] Comment on above: Performed By: #### D RUGRPD #### [facility] [address] [place] [address] Dr. Amanda Cottrell GI PANEL (PCR)on 12-11-2021 Adenovirus F 40/41 Not detected Normal NOT DETECTED [facility] Comment on above: Performed By: #### V ANCT #### [facility] [address] [place] [address] Dr. Amanda Cottrell Astrovirus Not detected Normal NOT DETECTED [facility] Comment on above: Performed By: #### V ANCT #### [facility] [address] [place] [address] Dr. Amanda Cottrell C. Diff toxin A/B Not detected Normal NOT DETECTED [facility] Comment on above: Performed By: #### V ANCT #### [facility] [address] [place] [address] Dr. Amanda Cottrell Campylobacter Not detected Normal NOT DETECTED [facility] Comment on above: Performed By: #### V ANCT #### [facility] [address] [place] [address] Dr. Amanda Cottrell Cryptosporidium Not detected Normal NOT DETECTED [facility] Comment on above: Performed By: #### V ANCT #### [facility] [address] [place] [address] Dr. Amanda Cottrell Cyclos. Cayetanensis Not detected Normal NOT DETECTED [facility] Comment on above: Performed By: #### V ANCT #### [facility] [address] [place] [address] Dr. Amanda Cottrell E. Coli O157 Not Applicable Normal Not Applicable [facility] Comment on above: Performed By: #### V ANCT #### [facility] [address] [place] [address] Dr. Amanda Cottrell E. histolytica Not detected Normal NOT DETECTED [facility] Comment on above: Performed By: #### V ANCT #### [facility] [address] [place] [address] Dr. Amanda Cottrell EAEC Not detected Normal NOT DETECTED [facility] Comment on above: Performed By: #### V ANCT #### [facility] [address] [place] [address] Dr. Amanda Cottrell EIEC Not detected Normal NOT DETECTED [facility] Comment on above: Performed By: #### V ANCT #### [facility] [address] [place] [address] Dr. Amanda Cottrell EPEC Not detected Normal NOT DETECTED [facility] Comment on above: Performed By: #### V ANCT #### [facility] [address] [place] [address] Dr. Amanda Cottrell ETEC Not detected Normal NOT DETECTED [facility] Comment on above: Performed By: #### V ANCT #### [facility] [address] [place] [address] Dr. Amanda Sy Lamblia Not detected Normal NOT DETECTED [facility] Comment on above: Performed By: #### V ANCT #### [facility] [address] [place] [address] Dr. Amanda DUQUE CONTROLS PASSED Normal [facility] Comment on above: Performed By: #### V ANCT #### [facility] [address] [place] [address] Dr. Amanda ANDREW HEADER GI PANEL BACTERIA Normal [facility] Comment on above: Performed By: #### V ANCT #### [facility] [address] [place] [address] Dr. Amanda RUIZ ECOLI GI PANEL DIARRHEAGENIC E.COLI / SHIGELLA Normal [facility] Comment on above: Performed By: #### V ANCT #### [facility] [address] [place] [address] Dr. Amanda RUIZ INFO SEE BELOW Normal [facility] Comment on above: Result Comment: EAEC - Enteroaggregative E. Coli EPEC- Enteropathogenic E. Coli ETEC- Enterotoxigenic E. Coli lt/st STEC- Shigella-like toxin-producing E. Coli stx1/stx2 EIEC- Shigella/Enteroinvasive E. Coli Performed By: #### V ANCT #### [facility] [address] [place] [address] Dr. Amanda RUIZ PARASITES GI PANEL PARASITES Normal [facility] Comment on above: Performed By: #### V ANCT #### [facility] [address] [place] [address] Dr. Amanda RUIZ VIRUS GI PANEL VIRUSES Normal [facility] Comment on above: Performed By: #### V ANCT #### [facility] [address] [place] [address] Dr. Amanda Cottrell Norovirus GI/GII Not detected Normal NOT DETECTED [facility] Comment on above: Performed By: #### V ANCT #### [facility] [address] [place] [address] Dr. Amanda Cottrell P. Shigelloides Not detected Normal NOT DETECTED [facility] Comment on above: Performed By: #### V ANCT #### [facility] [address] [place] [address] Dr. Amanda Cottrell Rotavirus A Not detected Normal NOT DETECTED The [facility] Comment on above: Performed By: #### V ANCT #### [facility] [address] [place] [address] Dr. Amanda Cottrell Salmonella Not detected Normal NOT DETECTED [facility] Comment on above: Performed By: #### V ANCT #### [facility] [address] [place] [address] Dr. Amanda Cottrell Sapovirus Not detected Normal NOT DETECTED [facility] Comment on above: Performed By: #### V ANCT #### [facility] [address] [place] [address] Dr. Amanda Cottrell STEC Not detected Normal NOT DETECTED [facility] Comment on above: Performed By: #### V ANCT #### [facility] [address] [place] [address] Dr. Amanda Cottrell Vibrio Not detected Normal NOT DETECTED [facility] Comment on above: Performed By: #### V ANCT #### [facility] [address] [place] [address] Dr. Amanda Cottrell Vibrio Cholera Not detected Normal NOT DETECTED [facility] Comment on above: Performed By: #### V ANCT #### [facility] [address] [place] [address] Dr. Amanda Cottrell Y. Enterocolitica Not detected Normal NOT DETECTED [facility] Comment on above: Performed By: #### V ANCT #### [facility] [address] [place] [address] Dr. Amanda Cottrell LACTATE/LACTIC ACIDon 2021 Lactate [Moles/Vol] 1.0 mmol/L Normal 0.7-2.0 [facility] Comment on above: Performed By: #### C BCMAN #### [facility] [address] [place] [address] Dr. Amanda Cottrell LIPASEon 12-11-2021 Lipase [Catalytic activity/Vol] 97.0 U/L Normal 23.0-300.0 [facility] Comment on above: Performed By: #### C MP, LIPA #### [facility] [address] [place] [address] Dr. Amanda Cottrell OCC BLD IMMUNO SCREENon 11-13 OCCULT BLOOD Positive Abnormal NEGATIVE [facility] Comment on above: Performed By: #### C MELCHOR #### [facility] [address] [place] [address] Dr. Amanda Cottrell PROF 14(COMP METB)on 022 Albumin [Mass/Vol] 2.0 g/dL Critically low 3.5-5.0 [facility] Comment on above: Performed By: #### C MP, LIPA #### [facility] [address] [place] [address] Dr. Amanda Cottrell Albumin/Globulin [Mass ratio] 0.5 {ratio} Normal [facility] Comment on above: Performed By: #### C MP, LIPA #### [facility] [address] [place] [address] Dr. Amanda Cottrell ALP [Catalytic activity/Vol] 91 U/L Normal 38-126 [facility] Comment on above: Performed By: #### C MP, LIPA #### [facility] [address] [place] [address] Dr. Amanda Cottrell ALT [Catalytic activity/Vol] 36 U/L Normal 21-72 [facility] Comment on above: Performed By: #### C MP, LIPA #### [facility] [address] [place] [address] Dr. Amanda Cottrell Anion gap [Moles/Vol] 9.6 mmol/L Normal [facility] Comment on above: Performed By: #### C MP, LIPA #### [facility] [address] [place] [address] Dr. Amanda Cottrell AST [Catalytic activity/Vol] 22 U/L Normal 17-59 [facility] Comment on above: Performed By: #### C MP, LIPA #### [facility] [address] [place] [address] Dr. Amanda Cottrell Bilirubin [Mass/Vol] 0.8 mg/dL Normal 0.2-1.3 [facility] Comment on above: Performed By: #### C MP, LIPA #### [facility] [address] [place] [address] Dr. Amanda Cottrell Calcium [Mass/Vol] 7.8 mg/dL Critically low 8.4-10.2 [facility] Comment on above: Performed By: #### C MP, LIPA #### [facility] [address] [place] [address] Dr. Amanda Cottrell Chloride [Moles/Vol] 93 mmol/L Critically low 98-107 [facility] Comment on above: Performed By: #### C MP, LIPA #### [facility] [address] [place] [address] Dr. Amanda Cottrell CO2 [Moles/Vol] 24.4 mmol/L Normal 22.0-30.0 [facility] Comment on above: Performed By: #### C MP, LIPA #### [facility] [address] [place] [address] Dr. Amanda Cottrell Creatinine [Mass/Vol] 0.71 mg/dL Normal 0.66-1.25 [facility] Comment on above: Performed By: #### C MP, LIPA #### [facility] [address] [place] [address] Dr. Amanda Cottrell EGFR-AF [facility] >60 Normal >=60 [facility] Comment on above: Performed By: #### C MP, LIPA #### [facility] [address] [place] [address] Dr. Amanda Cottrell EGFR-NON AF [facility] >60 Normal >=60 [facility] Comment on above: Performed By: #### C MP, LIPA #### [facility] [address] [address] [address] Amanda Cottrell Globulin (S) [Mass/Vol] 4.3 g/dL Normal [facility] Comment on above: Performed By: #### C MP, LIPA #### [facility] [address] [place] [address] Dr. Amanda Cottrell Glucose [Mass/Vol] 122 mg/dL Critically high 74-106 [facility] Comment on above: Performed By: #### C EMILEE, LIPA #### [facility] [address] [place] [address] Dr. Amanda Cottrell Potassium [Moles/Vol] 2.9 mmol/L Critically low 3.4-5.0 [facility] Comment on above: Performed By: #### C MP, LIPA #### [facility] [address] [place] [address] Dr. Amanda Cottrell Protein [Mass/Vol] 6.3 g/dL Normal 6.1-8.2 [facility] Comment on above: Performed By: #### C MP, LIPA #### [facility] [address] [place] [address] Dr. Amanda Cottrell Sodium [Moles/Vol] 122 mmol/L Critically low 137-145 [facility] Comment on above: Performed By: #### C MP, LIPA #### [facility] [address] [place] [address] Dr. Amanda Cottrell Urea nitrogen [Mass/Vol] 11.0 mg/dL Normal 9.0-20.0 [facility] Comment on above: Performed By: #### C MP, LIPA #### [facility] [address] [place] [address] Dr. Amanda Cottrell Urea nitrogen/Creatinine [Mass ratio] 15.0 mg/mg Normal [facility] Comment on above: Performed By: #### C MP, LIPA #### [facility] [address] [place], [place] [address] Dr. Amanda Cottrell XR ABD FLAT UP_PA Cesario 12-11 XR ABD FLAT UP_PA CH EXAM: XR ABD FLAT UP_PA CH HISTORY: MUSCLE WEAKNESS (GENERALIZED) COMPARISON: None. TECHNIQUE: Single frontal view of the chest as well as upright and supine views of the abdomen FINDINGS: The heart size is normal. Approximately 15 mm nodular opacity is suspected in the lateral left upper lung. A chest CT is suggested for further evaluation. No significant pleural effusion or pneumothorax is seen. Nonspecific bowel gas pattern is seen. No air-filled distended loops of bowel is seen to suggest bowel obstruction. No gross pneumoperitoneum is seen. No obvious pathologic calcification is seen. Large volume of stool is seen throughout the colon. IMPRESSION: Approximately 15 mm nodular opacity is suspected in the lateral left upper lung. A chest CT is suggested for further evaluation. Large volume of stool seen in the colon. Electronically authenticated by: SAMUEL GREENE Date: 2021-12-11 17:09 Normal [facility] Basic Metab w/rfx MGon 10-23 (cont.) Normal [facility] Comment on above: Result Comment: Aver age GFR for 30-39 years old: 107 mL/min/1.73sq m Chronic Kidney Disease: <60 mL/min/1.73sq m Kidney failure: <15 mL/min/1.73sq m eGFR calculated using average adult body mass. Additional eGFR calculator available at: http://[email or web address] Round/multiple_crcl_2012.htm Performed By: #### C P, CDP #### [facility] [address] [place] [address] Substance Addiction Coordinator: Joelle Parker MD Anion gap [Moles/Vol] 11 mmol/L Normal 9-17 [facility] Comment on above: Performed By: #### C P, CDP #### [facility] [address] [place] [address] Substance Addiction Coordinator: Joelle Parker MD BUN/CRE Ratio 16 Normal - [facility] Comment on above: Performed By: #### C P, CDP #### [facility] [address] [place], [place] [id number] Substance Addiction Coordinator: Joelle Parker MD Calcium [Mass/Vol] 9.5 mg/dL Normal 8.6-10.4 [facility] Comment on above: Performed By: #### C P, CDP #### [facility] [address] [place], [place] [id number] Substance Addiction Coordinator: Joelle Parker MD Chloride [Moles/Vol] 100 mmol/L Normal 98-107 [facility] Comment on above: Performed By: #### C P, CDP #### [facility] [address] [place], [place] [id number] Substance Addiction Coordinator: Joelle Parker MD CO2 [Moles/Vol] 26 mmol/L Normal 20-31 [facility] Comment on above: Performed By: #### C P, CDP #### [facility] [address] [place], [place] [id number] Substance Addiction Coordinator: Joelle Parker MD Creatinine [Mass/Vol] 0.95 mg/dL Normal 0.70-1.20 [facility] Comment on above: Performed By: #### C P, CDP #### [facility] [address] [place], [place] [id number] Substance Addiction Coordinator: Joelle Parker MD GFR, Amer >60 Normal >60 [facility] Comment on above: Performed By: #### C P, CDP #### [facility] [address] [place], [place] [address] Substance Addiction Coordinator: Joelle Parker MD GFR,non Amer >60 Normal >60 [facility] Comment on above: Performed By: #### C P, CDP #### [facility] [address] [place], [place] [id number] Substance Addiction Coordinator: Joelle Parker MD Glucose [Mass/Vol] 92 mg/dL Normal 70-99 [facility] Comment on above: Performed By: #### C P, CDP #### [facility] [address] [place], [place] [address] Substance Addiction Coordinator: Joelle Parker MD Potassium [Moles/Vol] 3.7 mmol/L Normal 3.7-5.3 [facility] Comment on above: Performed By: #### C P, CDP #### [facility] [address] [place], [place] [id number] Substance Addiction Coordinator: Joelle Parker MD Sodium [Moles/Vol] 137 mmol/L Normal 135-144 [facility] Comment on above: Performed By: #### C P, CDP #### [facility] [address] [place], [place] [id number] Substance Addiction Coordinator: Joelle Parker MD Staging: Normal [facility] Comment on above: Result Comment: Stag e 1: Some kidney damage normal GFR Stage 2: Mild kidney damage GFR 60-89 Stage 3: Moderate kidney damage GFR 30-59 Stage 4: Severe kidney damage GFR 15-29 Stage 5: Severe kidney damage GFR <15 ESRD - chronic treatment by dialysis or transplant Performed By: #### C P, CDP #### [address] [place], [place] [id number] Substance Addiction Coordinator: Joelle Parker MD Urea nitrogen [Mass/Vol] 15 mg/dL Normal 6-20 [facility] Comment on above: Performed By: #### C P, CDP #### [facility] [address] [place], [place] [id number] Substance Addiction Coordinator: Joelle Parker MD CBC with Diffon 10-23-2021 Abs. Basophil 0.05 k/uL Normal 0.00-0.20 [facility] Comment on above: Performed By: #### C P, CDP #### [facility] [address] [place], [place] [id number] Substance Addiction Coordinator: Joelle Parker MD Abs.Imm.Granulocyte <0.03 Normal 0.00-0.30 [facility] Comment on above: Performed By: #### C P, CDP #### [address] [place], [facility] Substance Addiction Coordinator: Joelle Parker MD Abs.Neutrophil (Seg) 4.12 k/uL Normal 1.50-8.10 [facility] Comment on above: Performed By: #### C P, CDP #### [address] [place], [facility] Substance Addiction Coordinator: Joelle Parker MD Basophils/100 WBC (Bld) 1 % Normal 0-2 [facility] Comment on above: Performed By: #### C P, CDP #### [address] [place], [place] [address] Substance Addiction Coordinator: Joelle Parker MD Eosinophils (Bld) [#/Vol] 0.74 10*3/uL High 0.00-0.44 [facility] Comment on above: Performed By: #### C P, CDP #### [address] [place], [place] [address] Substance Addiction Coordinator: Joelle Parker MD Eosinophils/100 WBC (Bld) 10 % High 1-4 [facility] Comment on above: Performed By: #### C P, CDP #### [address] [place], [place] [address] Substance Addiction Coordinator: Joelle Parker MD Erythrocyte distribution width (RBC) [Ratio] 13.8 % Normal 11.8-14.4 [facility] Comment on above: Performed By: #### C P, CDP #### [address] [place], [facility] Substance Addiction Coordinator: Joelle Parker MD Hematocrit (Bld) [Volume fraction] 41.9 % Normal 40.7-50.3 [facility] Comment on above: Performed By: #### C P, CDP #### [facility] [address] [place], [place] [id number] Substance Addiction Coordinator: Joelle Parker MD Hemoglobin (Bld) [Mass/Vol] 13.6 g/dL Normal 13.0-17.0 [facility] Comment on above: Performed By: #### C P, CDP #### [facility] [address] [place], [id number] Substance Addiction Coordinator: Joelle Parker MD Immature granulocytes/100 WBC (Bld) 0 % Normal 0 [facility] Comment on above: Performed By: #### C P, CDP #### [address] [place] [address] Substance Addiction Coordinator: Joelle Parker MD Lymphocytes (Bld) [#/Vol] 1.50 10*3/uL Normal 1.10-3.70 [facility] Comment on above: Performed By: #### C P, CDP #### [address] [place], [facility]83 Substance Addiction Coordinator: Joelle Parker MD Lymphocytes/100 WBC (Bld) 21 % Low 24-43 [facility] Comment on above: Performed By: #### C P, CDP #### [address] [place] [address] Substance Addiction Coordinator: Joelle Parker MD MCH (RBC) [Entitic mass] 28.6 pg Normal 25.2-33.5 [facility] Comment on above: Performed By: #### C P, CDP #### [address] [place] [address] Substance Addiction Coordinator: Joelle Parker MD MCHC (RBC) [Mass/Vol] 32.5 g/dL Normal 28.4-34.8 [facility] Comment on above: Performed By: #### C P, CDP #### [address] [place] [address] Substance Addiction Coordinator: Joelle Parker MD MCV (RBC) [Entitic vol] 88.2 fL Normal 82.6-102.9 [facility] Comment on above: Performed By: #### C P, CDP #### [address] [place], [place] [id number] Substance Addiction Coordinator: Joelle Parker MD Monocytes (Bld) [#/Vol] 0.68 10*3/uL Normal 0.10-1.20 [facility] Comment on above: Performed By: #### C P, CDP #### [address] [place] [address] Substance Addiction Coordinator: Joelle Parker MD Monocytes/100 WBC (Bld) 10 % Normal 3-12 [facility] Comment on above: Performed By: #### C P, CDP #### [address] [place], [facility]83 Substance Addiction Coordinator: Joelle Parker MD Neutrophil (Seg) 58 % Normal 36-65 [facility] Comment on above: Performed By: #### C P, CDP #### [address] [place], [place] [address] Substance Addiction Coordinator: Joelle Parker MD NRBC Automated 0.0 per 100 WBC Normal 0.0 [facility] Comment on above: Performed By: #### C P, CDP #### [address] [place], [facility]83 Substance Addiction Coordinator: Joelle Parker MD Platelet mean volume (Bld) [Entitic vol] 9.1 fL Normal 8.1-13.5 [facility] Comment on above: Performed By: #### C P, CDP #### [address] [place], [place] [id number] Substance Addiction Coordinator: Joelle Parker MD Platelets (Bld) [#/Vol] 214 10*3/uL Normal 138-453 [facility] Comment on above: Performed By: #### C P, CDP #### [facility] [address] [place], [place] [id number] Substance Addiction Coordinator: Joelle Parker MD RBC (Bld) [#/Vol] 4.75 10*6/uL Normal 4.21-5.77 [facility] Comment on above: Performed By: #### C P, CDP #### [facility] [address] [place], [place] [id number] Substance Addiction Coordinator: Joelle Parker MD WBC (Bld) [#/Vol] 7.1 10*3/uL Normal 3.5-11.3 [facility] Comment on above: Performed By: #### C P, CDP #### [facility] [address] [place], [id number] Substance Addiction Coordinator: Joelle Parker MD Auto Diff Performed NOT REPORTED Normal [facility] Comment on above: Performed By: #### C P, CDP #### [facility] [address] [place], [place] [id number] Substance Addiction Coordinator: Joelle Parker MD Platelet Comment NOT REPORTED Normal [facility] Comment on above: Performed By: #### C P, CDP #### [facility] [address] [place] [address] Dr[place], [place] [id number] Substance Addiction Coordinator: Joelle Parker MD RBC morphology finding Nom (Bld) NOT REPORTED Normal [facility] Comment on above: Performed By: #### C P, CDP #### [facility] [address] [place], [place] [id number] Substance Addiction Coordinator: Joelle Parker MD WBC Morphology NOT REPORTED Normal [facility] Comment on above: Performed By: #### C P, CDP #### [facility] [address] [place], [place] [id number] Substance Addiction Coordinator: Joelle Parker MD Ethanol Alcoholon 10-23-2021 Ethanol [Mass/Vol] mg/dL Normal <10 [facility] Comment on above: Performed By: #### A LCB #### [facility] [address] [place] [address] Substance Addiction Coordinator: Joelle Parker MD Ethanol percent <0.010 Normal <0.010 [facility] Comment on above: Performed By: #### A LCB #### [facility] [address] [place] [address] Substance Addiction Coordinator: Joelle Parker MD Troponinon 10-23-2021 Troponin, High Sens <6 Normal 0-22 [facility] Comment on above: Result Comment: High Sensitivity Troponin values cannot be compared with other Troponin methodologies. Patients with high levels of Biotin oral intake (i.e >5mg/day) may have falsely decreased Troponin levels. Samples collected within 8 hours of biotin intake may require additional information for diagnosis. Performed By: #### C P, CDP #### [facility] [address] [place] [address] Substance Addiction Coordinator: Joelle Parker MD Troponin Interp. NOT REPORTED Normal [facility] Comment on above: Performed By: #### C P, CDP #### [facility] [address] [place] [address] Substance Addiction Coordinator: Joelle Parker MD Troponin T NOT REPORTED Normal <0.03 [facility] Comment on above: Performed By: #### C P, CDP #### [facility] [address] [place] [address] Substance Addiction Coordinator: Joelle Parker MD XR CHEST PORTABLEon 10-23-20 21 XR CHEST PORTABLE EXAMINATION: ONE XRAY VIEW OF THE CHEST 10/23/2021 6:03 pm COMPARISON: 12/16/2020 HISTORY: ORDERING SYSTEM PROVIDED HISTORY: Chest pain TECHNOLOGIST PROVIDED HISTORY: Chest pain FINDINGS: Chronic accentuation of the bronchovascular markings. The lungs are without acute focal process. There is no effusion or pneumothorax. The cardiomediastinal silhouette is without acute process. The osseous structures are without acute process. IMPRESSION: No acute process. Interpreted by: Addy Gates MD Signed by: Addy Gates MD 10/23/21 Final result Normal [facility] Basic Metabolic Panel w/ Ref rebecca to MGOrdered By: Yareli Jonas on 05-29-2021 Anion gap [Moles/Vol] 11 mmol/L 9 - 17 mmol/L [employer] Phone: Calcium [Mass/Vol] 9.5 mg/dL 8.6 - 10. 4 mg/dL [employer] Phone: Chloride [Moles/Vol] 104 mmol/L 98 - 10 7 mmol/L [employer] Phone: CO2 [Moles/Vol] 27 mmol/L 20 - 31 mmol/L [employer] Phone: Creatinine [Mass/Vol] 0.9 mg/dL 0.70 - 1.20 mg/dL [employer] Phone: GFR >60 >60 mL/min Info Phone: GFR Non- >60 >60 mL/min [employer] Phone: Glucose [Mass/Vol] 91 mg/dL 70 - 99 mg/dL [employer] Phone: Potassium [Moles/Vol] 3.8 mmol/L 3.7 - 5.3 mmol/L [employer] Phone: Sodium [Moles/Vol] 142 mmol/L 135 - 144 mmol/L [employer] Phone: Urea nitrogen (BldV) [Mass/Vol] 15 mg/dL 6 - 20 mg/dL [employer] Phone: Urea nitrogen/Creatinine (Bld) [Mass ratio] 17 [employer] Phone: Brain Natriuretic PeptideOrd ered By: Yareli Jonas on 05-29-2021 BNP Interpretation Pro-BNP Reference Range: [employer] Phone: Comment on above: Rule Out: <300 Juares Zone: Age <50 300-450 Age 50-75 300-900 Age >75 300-1800 Usually represents mild to moderate HF but other cardiopulmonary causes cannot be ruled out. Rule In: Age <50 >450 Age 50-75 >900 Age >75 >1800 Natriuretic peptide B (Bld) [Mass/Vol] 34 pg/mL <300 [employer] Phone: Comment on above: Pro-BNP results zora ot be compared to BNP results. [employer] Phone: CBC Auto DifferentialOrdered By: Yareli Jonas on 05-29-2021 Absolute Eos # 0.17 [employer] [facility] Work Phone: Absolute Immature Granulocyte <0.03 [employer] Phone: Absolute Lymph # 0.98 Low [employer] [facility] Work Phone: Absolute Kings # 0.56 [facility] Work Phone: Basophils (Bld) [#/Vol] 0.03 10*3/uL [employer] Phone: Basophils/100 WBC (Bld) 1 % 0 - 2 % [facility] Phone: Differential Type NOT REPORTED [employer] Phone: Eosinophils/100 WBC (Bld) 3 % 1 - 4 % [facility] Phone: Hematocrit (Bld) [Volume fraction] 38.8 % Low 40.7 - 50.3 % [facility] Phone: Hemoglobin.gastrointesti nal spec 1 Ql (Stl) 12.6 g/dL Low 13.0 - 17.0 g/dL [employer] Phone: Immature granulocytes/100 WBC (Bld) 0 % 0 [employer] Phone: Interpretation and review of laboratory results Abnormal [employer] Phone: Lymphocytes/100 WBC (Bld) 17 % Low 24 - 43 % [employer] Phone: MCH (RBC) [Entitic mass] 28.8 pg 25. 2 - 33.5 pg [employer] Phone: MCHC (RBC) [Mass/Vol] 32.5 g/dL 28.4 - 34.8 g/dL [employer] Phone: MCV (RBC) [Entitic vol] 88.6 fL 82.6 - 102.9 fL [employer] Phone: Monocytes/100 WBC (Bld) 10 % 3 - 12 % M [employer] Phone: NRBC Automated 0.0 0.0 per 100 WBC [employer] Phone: Platelet distribution width (Bld) [Ratio] 13.3 % 11.8 - 14.4 % [employer] Phone: Platelet Estimate NOT REPORTED [employer] Phone: Platelet mean volume (Bld) [Entitic vol] 8.7 fL 8.1 - 13.5 fL [employer] Phone: Platelets (Bld) [#/Vol] 193 10*3/uL [employer] Phone: RBC (Bld) [#/Vol] 4.38 10*6/uL 4.21 - 5.7 7 m/uL [employer] Phone: RBC (Bld) [#/Vol] NOT REPORTED [employer] Phone: Segmented neutrophils/100 WBC (Bld) 69 % High 36 - 65 % [employer] Phone: Segs [employer] Work Phone: WBC (Bld) [#/Vol] 5.7 10*3/uL [employer] Phone: WBC (Bld) [#/Vol] NOT REPORTED [employer] Phone: [employer] Phone: CT CHEST ABDOMEN PELVIS W CO NTRASTOrdered By: Yareli Jonas on 05-29-2021 1. No acute visceral or osseous abnormality. 2. No acute infective or inflammatory process. 3. A few bilateral inguinal lymph nodes up to 13 mm in maximal dimension likely reactive. Please correlate with physical exam. [employer] Phone: EXAMINATION: CT OF THE CHEST, ABDOMEN, AND PELVIS WITH CONTRAST 05/29/2021 1:58 pm TECHNIQUE: CT of the chest, abdomen and pelvis was performed with the administration of intravenous contrast. Multiplanar reformatted images are provided for review. Dose modulation, iterative reconstruction, and/or weight based adjustment of the mA/kV was utilized to reduce the radiation dose to as low as reasonably achievable. COMPARISON: None HISTORY: ORDERING SYSTEM PROVIDED HISTORY: [facility] lower abdominal pain TECHNOLOGIST PROVIDED HISTORY: [facility] lower abdominal pain Decision Support Exception - unselect if not a suspected or confirmed emergency medical condition->Emergency Medical Condition (MA) FINDINGS: Chest: Mediastinum: Cardiac size normal. Aorta and pulmonary arteries enhance satisfactorily without evidence for acute traumatic injury. No aneurysm or dissection. Multiple borderline prominent mediastinal lymph nodes. For example 13 mm AP window lymph node, 15 mm subcarinal lymph node noted along with other smaller nodes. There is 10 mm right paratracheal lymph node. Nonspecific. Probably reactive. Suggest three-month follow-up. Lungs/pleura: No significant nodules or masses. The streaky hazy bandlike pleural-parenchymal densities representing subsegmental atelectasis noted posterior lung bases right greater than left. No pleural effusion or pneumothorax. Soft Tissues/Bones: No acute abnormality of the bones. The superficial soft tissues show no significant abnormalities. Abdomen/Pelvis: Organs: The liver, spleen, pancreas, kidneys and adrenal glands show no significant abnormality. Gallbladder shows no significant abnormality. GI/Bowel: There is limited evaluation due to absence of oral contrast. The stomach shows no focal lesions. Small bowel loops normal in caliber showing no focal abnormalities. No evidence for appendicitis. Moderate increased stool load. Evaluation of the colon shows no acute process. Pelvis: Urinary bladder is unremarkable. No suspicious pelvic mass. Peritoneum/Retroperit oneum: No free intraperitoneal fluid. No retroperitoneal or intraperitoneal lymphadenopathy. A few small bilateral inguinal lymph nodes visualized up to 13 mm in maximal dimension likely reactive. Bones/Soft Tissues: No acute abnormality of the bones. The superficial soft tissues show no significant abnormalities. [employer] Work Phone: Kirt, pn Incoming Radiant Results From [employer] - 05/29/2021 2:41 PM EDT EXAMINATION: CT OF THE CHEST, ABDOMEN, AND PELVIS WITH CONTRAST 05/29/2021 1:58 pm TECHNIQUE: CT of the chest, abdomen and pelvis was performed with the administration of intravenous contrast. Multiplanar reformatted images are provided for review. Dose modulation, iterative reconstruction, and/or weight based adjustment of the mA/kV was utilized to reduce the radiation dose to as low as reasonably achievable. COMPARISON: None HISTORY: ORDERING SYSTEM PROVIDED HISTORY: [facility] lower abdominal pain TECHNOLOGIST PROVIDED HISTORY: [facility] lower abdominal pain Decision Support Exception - unselect if not a suspected or confirmed emergency medical condition->Emergency Medical Condition (MA) FINDINGS: Chest: Mediastinum: Cardiac size normal. Aorta and pulmonary arteries enhance satisfactorily without evidence for acute traumatic injury. No aneurysm or dissection. Multiple borderline prominent mediastinal lymph nodes. For example 13 mm AP window lymph node, 15 mm subcarinal lymph node noted along with other smaller nodes. There is 10 mm right paratracheal lymph node. Nonspecific. Probably reactive. Suggest three-month follow-up. Lungs/pleura: No significant nodules or masses. The streaky hazy bandlike pleural-parenchymal densities representing subsegmental atelectasis noted posterior lung bases right greater than left. No pleural effusion or pneumothorax. Soft Tissues/Bones: No acute abnormality of the bones. The superficial soft tissues show no significant abnormalities. Abdomen/Pelvis: Organs: The liver, spleen, pancreas, kidneys and adrenal glands show no significant abnormality. Gallbladder shows no significant abnormality. GI/Bowel: There is limited evaluation due to absence of oral contrast. The stomach shows no focal lesions. Small bowel loops normal in caliber showing no focal abnormalities. No evidence for appendicitis. Moderate increased stool load. Evaluation of the colon shows no acute process. Pelvis: Urinary bladder is unremarkable. No suspicious pelvic mass. Peritoneum/Retroperit oneum: No free intraperitoneal fluid. No retroperitoneal or intraperitoneal lymphadenopathy. A few small bilateral inguinal lymph nodes visualized up to 13 mm in maximal dimension likely reactive. Bones/Soft Tissues: No acute abnormality of the bones. The superficial soft tissues show no significant abnormalities. IMPRESSION: 1. No acute visceral or osseous abnormality. 2. No acute infective or inflammatory process. 3. A few bilateral inguinal lymph nodes up to 13 mm in maximal dimension likely reactive. Please correlate with physical exam. [employer] Phone: [employer] Phone: D-Dimer, QuantitativeOrdered By: Yareli Jonas on 05-29-2021 D-Dimer, Quant 0.70 High [employer] Phone: Comment on above: When combined with a low clinical probability, a D dimer value of <0.50 mg/L FEU is considered negative for DVT and PE (negative predictive value of 98%, sensitivity of 97%). If this test is not being used to help rule out DVT and PE, then the following reference range should be utilized: 0.00 - 0.59 mg/L FEU. The D-Dimer assay is intended for use as an aid in the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 identified. [place] Subtle multifocal bilateral opacities concerning for developing multifocal or viral pneumonia. Pulmonary edema cannot be excluded. [place] Discharge [id number] Discharge Profile2 Discharge Orders: Anticipated Discharge Date: Anticipated Discharge [id number] Anticipated Discharge Time09:25 Activity: activity as tolerated. May shower. Diet: Dietregular Provider FINAL REVIEW of Orders: Final Review: Final Review of Medication Reconciliation and Orders Completedby Physician Reviewing ProviderTimmy Hayward MD at 29-Apr-2020 09:29:52 Appointments: Follow-Up Appointment 01: Physician/Dept/Negra Guerrero Reason for ReferralCOPD Call to Schedule in2 weeks Phone [phone] Follow-Up Appointment 02: Physician/Dept/Negra ePCRossana Call to Schedule in1 week Electronic Signatures: Timmy Hayward) (Signed 29-Apr-2020 09:29) Authored: Discharge Orders, Provider FINAL REVIEW of Orders, Appointments, Gold Form - Gear Repairer Summary Last Updated: 29-Apr-2020 09:29 by Timmy Hayward) Normal [facility] History and Physical - Laureen Sorenson 04-29-2020 History and Physical - Critical Care Service: Critical Care Service: ServiceProgress note. History of Present Illness: Admission Reason: Shortness of breath HPI: Patient admitted increased shortness of breath wheezing cough chest tightness and congestion with white-yellow sputum production. Denies any sick flulike symptoms or COVID-19 symptoms no aches no pains no nausea no vomiting or diarrhea. Past medical history none Social history patient continues smoke, does use alcohol and heroin and cocaine. And marijuana. Patient improved DC home patient was seen this early a.m. Social History: Social History: Smoking Statusmoderate tobacco user (smokes >10 cigs daily, OR > ppd, OR 2-3 cans/pouches loose leaf tobacco per week) Alcohol Usedaily Drug Usedaily Drug 2 Usedaily Allergies: penicillin: Unknown Medications Prior to Admission: Centrum Adults oral tablet: 1 tab(s) orally once a day. Review of Systems: Genitourinary: COMMENTS: na All Other Systems: All other systems reviewed and are negative Objective: Objective Information: Objective Information T PRBPSpO2 [id number]/649 4% Date/Time04/29 13: 13: 13: 13: 13:09 Range(36.8C - 37.8C ) (100 - 106 ) (18 - 18 ) (116 - 132 )/ (57 - 64 ) (94% - 94% ) Highest temp of 37.8 C was recorded at 04/28 19:46 Pain reported at 04/29 7:58: 0 = None ---- Intake and Output ----- Mn/Dy/Year TimeIntakeOutputNet Apr 29, 2020 2:00 [id number] Apr 29, 2020 6:00 [id number] Apr 28, 2020 10:00 [id number] The Intake and Output Totals for the last 24 hours are: IntakeOutputNet [id number] Date: Weight/Scale Type: 29-Apr-2020 04:5284.3 kg 28-Apr-2020 06:0081.3 kg / bed 17-Arturo-2020 11:3780.7 kg / bed 27-Apr-2020 07:3886 kg Recent Lab Results: Results: I have reviewed these laboratory results: Basic Metabolic Panel 28-Apr-2020 04:15:00 ResultValue Glucose, Serum 173 H NA 139 K 4.3 CL 105 Bicarbonate, Serum 25 Anion Gap, Serum 13 BUN 11 CREAT 0.84 GFR-Non >60 GFR- >60 Calcium, Serum 9.0 Complete Blood Count 28-Apr-2020 04:15:00 ResultValue White Blood Cell Count 8.4 Red Blood Cell Count 4.52 HGB 13.8 HCT 41.3 MCV 91 MCHC 33.4 PLT 239 RDW-CV 13.8 Culture, Blood 27-Apr-2020 08:33:00 ResultValue Culture, Blood NEGATIVE TO DATE, CULTURE IN PROGRESS. No Growth at 1 days COOX Panel, Arterial 27-Apr-2020 08:20:00 ResultValue HGB 16.5 Oxy Hgb, Arterial 95.3 CO Hgb, Arterial 1.1 Met Hgb, Arterial 0.6 Deoxy Hgb, Arterial 3.0 Guille's Test (Collateral Circulation) Yes Arterial Full Panel 27-Apr-2020 08:20:00 ResultValue pH, Arterial 7.37 L pCO2, Arterial 41 pO2, Arterial 95 FIO2 28 SO2, Arterial 97 HCT 49.0 Sodium-Level 137 Potassium-Level 3.8 Chloride-Level 103 Calcium, Ionized-Level 1.21 Glucose-Level 113 H Lactate-Level 1.4 Base Excess-Blood -1.7 Bicarbonate, Calculated, Arterial 23.4 HGB, Calculated 16.5 Guille's Test (Collateral Circulation) Yes Coronavirus 2019 by PCR 27-Apr-2020 08:10:00 ResultValue Fluid Source Nasal, Nasopharyngeal Coronavirus 2019,PCR NOT DETECTED Reference Range: Not Detected This assay is designed to detect the RdRp gene of SARS-CoV-2 via nucleic acid amplification. A Not Detected result does not preclude COVID-19 infection since the adequacy of sample collection and/or lo Complete Blood Count + Differential 27-Apr-2020 07:49:00 ResultValue White Blood Cell Count 10.2 Red Blood Cell Count 5.41 HGB 16.7 HCT 49.2 MCV 91 MCHC 33.9 PLT 256 RDW-CV 13.6 Neutrophil % 61.3 Immature Granulocytes % 0.2 Lymphocyte % 20.6 Monocyte % 8.7 Eosinophil % 8.6 Basophil % 0.6 Neutrophil Count 6.24 Lymphocyte Count 2.10 Monocyte Count 0.88 Eosinophil Count 0.87 H Basophil Count 0.06 Comprehensive Metabolic Panel 27-Apr-2020 07:49:00 ResultValue Glucose, Serum 118 H NA 140 K 4.0 CL 102 Bicarbonate, Serum 25 Anion Gap, Serum 17 BUN 6 CREAT 0.92 GFR-Non >60 GFR- >60 Calcium, Serum 9.5 ALB 4.2 ALKP 65 T Pro 7.8 T Bili 0.8 Alanine Aminotransferase, Serum 60 H Aspartate Transaminase, Serum 36 PT + INR, Plasma 27-Apr-2020 07:49:00 ResultValue Prothrombin Time, Plasma 13.2 International Normalized Ratio, Plasma 1.1 Lactate, Level 27-Apr-2020 07:49:00 ResultValue Lactate, Level 1.6 Results: Conclusion: Sinus tachycardia Possible Right atrial enlargement POOR R-WAVE PROGRESSION Borderline ECG No previous ECGs available Confirmed by SWAPNA SHAW MD ([id number]) on 04/27/2020 7:31:04 PM Electrocardiogram 12 Lead [Apr 27 2020 7:31PM] Impression: 1. Mild COPD. Xray Chest 1 View [Apr 27 2020 8:45AM] Assessment and Plan: Pulmonary: Diagnosis: asthma/COPD exacerbation with respiratory infection improved. Assessment: Smoking cessation discussed the patient. Plan: Treated with DuoNeb steroids and antibiotic. Improving. Other: Diagnosis: History of alcohol, marijuana, heroin and cocaine abuse counseling done about that. Plan: Monitor for withdrawal DTs Code Status: Code StatusFull Code Problem List: Additional Dx: COPD exacerbation: Signatures/Attestatio n/Certification: Note Completion: Attending Provider Inpatient Certification StatementI certify this patients need for inpatient care based on the above documentation including; the order to admit as inpatient, the anticipated length of stay, diagnosis, problem list and plan of care, and discharge plan. Admission Order - View OnlyCurrent Admission Order. Admit to Inpatient Adult Community_ Admitting Diagnosis, R06.03 Respiratory distress;J98.01 Bronchospasm, acute , Attending Provider Saul Guerrero Decision to Admit: 27-Apr-2020 Mellisa Witt Electronic Signatures: Saul Guerrero) (Signed 29-Apr-2020 19:14) Authored: Service, History of Present Illness, Comorbidities, Social History, Allergies, Medications Prior to Admission, Review of Systems, Objective, Assessment and Plan, Signatures/Attestatio n/Certification Last Updated: 29-Apr-2020 19:14 by Saul Guerrero) Normal [facility] BASIC METABOLIC PANELon 06- Anion gap [Moles/Vol] 13 mmol/L Normal 10 - 20 [facility] Comment on above: Performed By: #### B MP ####[id number] [place] [address] Calcium [Mass/Vol] 9.0 mg/dL Normal 8.6 - 10.3 [facility] Comment on above: Performed By: #### B MP ####[address] [address] Chloride [Moles/Vol] 105 mmol/L Normal 98 - 107 [facility] Comment on above: Performed By: #### B MP ####[id number] [place] [address] Creatinine [Mass/Vol] 0.84 mg/dL Normal 0.50 - 1.30 [facility] Comment on above: Performed By: #### B MP ####[id number] [place] [address] GFR- AM. >60 Normal >60 [facility] Comment on above: Result Comment: CALC ULATIONS OF ESTIMATED GFR ARE PERFORMED USING THE MDRD STUDY EQUATION FOR THE IDMS-TRACEABLE CREATININE METHODS. CLIN CHEM 2007;53:766-72 Performed By: #### B MP ####[id number] [place] [address] GFR-NON AM. >60 Normal >60 [facility] Comment on above: Performed By: #### B MP ####[id number] [place] [address] Glucose [Mass/Vol] 173 mg/dL High 74 - 99 [facility] Comment on above: Performed By: #### B MP ####[id number] [place] [address] HCO3 (Bld) [Moles/Vol] 25 mmol/L Normal 21 - 32 [facility] Comment on above: Performed By: #### B MP ####[facility] [place] [address] Potassium [Moles/Vol] 4.3 mmol/L Normal 3.5 - 5.3 [facility] Comment on above: Performed By: #### B MP ####[address] [place] [address] Sodium [Moles/Vol] 139 mmol/L Normal 136 - 145 [facility] Comment on above: Performed By: #### B MP ####[id number] [place] [address] Urea nitrogen [Mass/Vol] 11 mg/dL Normal 6 - 23 [facility] Comment on above: Performed By: #### B MP ####[address] [address] CBCon 04-28-2020 Erythrocyte distribution width (RBC) [Ratio] 13.8 % Normal 11.5 - 14.5 [facility] Comment on above: Performed By: #### C BC ####[address] [address] Hematocrit (Bld) [Volume fraction] 41.3 % Normal 41.0 - 52.0 [facility] Comment on above: Performed By: #### C BC ####[address] [address] Hemoglobin (Bld) [Mass/Vol] 13.8 g/dL Normal 13.5 - 17.5 [facility] Comment on above: Performed By: #### C BC ####[address] [address] MCHC (RBC) [Mass/Vol] 33.4 g/dL Normal 32.0 - 36.0 [facility] Comment on above: Performed By: #### C BC ####[address] [address] MCV (RBC) [Entitic vol] 91 fL Normal 80 - 100 [facility] Comment on above: Performed By: #### C BC ####[facility] [place] [address] Platelets (Bld) [#/Vol] 239 10*3/uL Normal 150 - 450 [facility] Comment on above: Performed By: #### C BC ####[facility] [place] [address] RBC (Bld) [#/Vol] 4.52 x10E12/L Normal 4.50 - 5.90 [facility] Comment on above: Performed By: #### C BC ####[facility] [place] [address] WBC (Bld) [#/Vol] 8.4 10*3/uL Normal 4.4 - 11.3 [facility] Comment on above: Performed By: #### C BC ####[facility] [place] [address] Discharge Planning Sntl1qs 0 04-28-2020 Discharge Planning Note2 Discharge Plann ing: Anticipated Discharge [id number] Discharge Planning 04/27/2020 patient admit to micu bed 3 04/28/2020 TCC note: Pt admitted to critical care unit, increased sob, wheezing, tested for COVID in ER negative. Rounded with multidisciplinary team, pt listed as uninsured and part of PAP program, per report + substance abuse history. Referral to social work at this time to assist with this and uninsured status. tcc to continue to follow as needed. Leilani Valencia RN TCC 04/28/20 1245 Social Work Note THE TELLER HAS BEEN NOTIFIED OF THE PT'S SELF PAY STATUS. THE PT HAS BEEN ASSESSED BY THE HUMAN [employer] ON 04/27/20. THE PT HAS BEEN DEEMED FINANCIALLY ELIGIBLE FOR MEDICAID APPLICATION WITH VERBAL CONSENT OBTAINED TO ALLOW [employer] AUTHORIZED TAPER AND FLOATER IN THE MEDICAID APPLICATION PROCESS. Luann BOB, [facility] 04/28/20 1400 Social Work Note THE TELLER MET THIS DATE WITH THE PT BEING TREATED IN THE MICU. THE PT STATES THAT HE IS TEMPORARILY RESIDING WITH HIS BOSS AWAITING AN APT ON HIS OWN. THE PT STATED SPEAKING WITH THE [employer] LIAISON ON 04/27/20 AND APPLICATION FOR MEDICAID. THE PT STATES THAT HIS CURRENT ADDRESS IS TEMPORARY WITH A GOAL OF MOVING TO HIS OWN APT. THE PT STATES THAT HE HAS BEEN OUT OF RETIREMENT SINCE THE BEGINNING OF THE YEAR AND REMAINED SOBER FOR APPROXIMATELY 4 MONTHS. THE PT STATES THAT THE ANNIVERSARY DATE OF HIS THOMAS TRIGGERED HIS CURRENT DRUG USE. THE PT VIEWS THIS HOSPITALIZATION A BEGINNING POINT FOR SOBRIETY. THE PT WAS RECEPTIVE TO RESOURCES BUT NOT INTERESTED IN AN INPATIENT TREATMENT PROGRAM AT THIS TIME FEELING HE CAN DO IT ON HIS OWN . THE PT ALSO ACCEPTED THE [facility]. THE TELLER WILL CONTINUE TO REMAIN AVAILABLE SUPPORTIVELY. Luann BOB, [facility] 04/29/2020 @ 1112 Agriculture Instructor Note: SWer is assissting with D/C plan and Meds to Bed fill. SWer is going to fill scripts through [facility] and bill to the department accordingly. RUKHSANA VillegasW 04/29/20 As this nurse was reviewing pt's home going meds, pt mentions he has no insurance and no way to get his meds. .Spoke with PAULINO Ibarra who will work on getting pt his meds. Meds to beds done and pt has 4 scripts filled for home. RT was able to obtain pt a nebulizer machine. Pt is aware of follow up appointments. No further home going instructions. CTRN. Assessment: Discharge Planning Assessment [id number] Stated Reason for Admissionsob(1) [place] ([place]) Lives Withfriend(s)(1) Living Arrangementsnursing home; house(1) Resource/Environmenta l Concernsnone(1) Anticipated Transition [place](1) Services Anticipated at Transitionnon(1) Nursing Checklist: Lines/Cathetersremove d/appropriate for next level of care Discharge Med Rec Reconciled with Jj Patient has Prescriptionsyes DME equipment orderedyes Transportation for Discharge Confirmedyes Discharge Instructions Reviewed WithPatient Discharge Instructions Outcomeverbalize recall/understanding Discharge Documentation: Discharge/Transfer Date/[id number] 13:13 Discharge Modewheelchair Transportation Methodtransportation service Valuables/Medications /Belongings Returnedyes Final DispositionHome Electronic Signatures: Leilani Valencia (GRAIN FARMER) (Signed 28-Apr-2020 11:45) Authored: Discharge Planning Note2 Marjorie Corbin (RN) (Signed 27-Apr-2020 22:37) Authored: Discharge Planning Note2 Stacey Goldman (SW) (Signed 29-Apr-2020 11:13) Authored: Discharge Planning Note2 Luann Larkin (SW) (Signed 28-Apr-2020 14:09) Authored: Discharge Planning Note2 Ava Kramer (RN) (Signed 29-Apr-2020 13:14) Authored: Discharge Planning Note2 Last Updated: 29-Apr-2020 13:14 by Ava Kramer (RN) References: 1. Data Referenced From Patient Profile - Adult v2 27-Apr-2020 11:37 Normal [facility] History and Physical - Criti hemalatha Rowlandon 04-28-2020 History and Physical - Critical Care Service: Critical Care Service: ServiceMICU History of Present Illness: Admission Reason: Shortness of breath HPI: Patient admitted increased shortness of breath wheezing cough chest tightness and congestion with white-yellow sputum production. Denies any sick flulike symptoms or COVID-19 symptoms no aches no pains no nausea no vomiting or diarrhea. Past medical history none Social history patient continues smoke, does use alcohol and heroin and cocaine. And marijuana. Social History: Social History: Smoking Statusmoderate tobacco user (smokes >10 cigs daily, OR > ppd, OR 2-3 cans/pouches loose leaf tobacco per week) Alcohol Usedaily Drug Usedaily Drug 2 Usedaily Allergies: penicillin: Unknown Medications Prior to Admission: Centrum Adults oral tablet: 1 tab(s) orally once a day. Review of Systems: Genitourinary: COMMENTS: na Breast: COMMENTS: na All Other Systems: All other systems reviewed and are negative Objective: Objective Information: Objective Information T PRBPSpO2 [id number] 1% Date/Time04/28 14:18 16: 16: 16: 16:08 Range(36.5C - 36.9C ) (90 - 138 ) (11 - 34 ) (103 - 151 )/ (42 - 89 ) (91% - 95% ) As of 28-Apr-2020 16:00:00, patient is on 3 L/min of oxygen via nasal cannula. Highest temp of 36.9 C was recorded at 04/27 22:00 Pain reported at 04/28 16:00: 0 = None ---- Intake and Output ----- [facility] Apr 28, 2020 2:00 [id number] Apr 28, 2020 6:00 [id number] Apr 27, 2020 10:00 [id number] The Intake and Output Totals for the last 24 hours [facility]: [id number] Date: Weight/Scale Type: 28-Apr-2020 06:0081.3 kg / bed 27-Apr-2020 11:3780.7 kg / bed 27-Apr-2020 07:3886 kg Medications: Medications: Continuous Medications No continuous medications are active Scheduled Medications 1. Albuterol 2.5mg - Ipratropium 0.5 mg/ 3mL Neb Soln: 3 mL Inhalation Every 4 Hours 2. Dextromethorphan - guaiFENesin Oral Liquid: 10 mL Oral Every 4 Hours 3. Docusate: 100 mg Oral 2 Times a Day 4. Enoxaparin SubCutaneous: 40 mg SubCutaneous Every 24 Hours 5. levoFLOXacin (LEVAQUIN) 750 mg IVPB/ Premix 150 mL: 150 mL IntraVenous Piggyback Every 24 Hours 6. Loratadine: 10 mg Oral Daily 7. methylPREDNISolone Sodium Succinate Injectable: 60 mg IntraVenous Push Every 6 Hours 8. Montelukast: 10 mg Oral At Bedtime 9. Multivitamin with Minerals: 1 tablet(s) Oral Daily 10. Theophylline Extended Release (Darnell-24): 300 mg Oral Every 24 Hours PRN Medications 1. Albuterol 2.5mg - Ipratropium 0.5 mg/ 3mL Neb Soln: 3 mL Inhalation Every 1 Hour 2. cloNIDine (CATAPRES): 0.1 mg Oral Every 4 Hours 3. Ondansetron: 4 mg Oral Every 4 Hours Recent Lab Results: Results: CBC: 04/28/2020 04:15 \ Hgb / \ 13.8 / WBC Plt 8.4 239 / Hct \ / 41.3 \ RBC: 4.52 MCV: 91 BMP: 04/28/2020 04:15 NA+ Cl- BUN / 139 105 11 / Glucose ------ 173 H K+ HCO3- Creat \ 4.3 25 0.84 \ Calcium : 9.0 Anion Gap : 13 I have reviewed these laboratory results: Basic Metabolic Panel 28-Apr-2020 04:15:00 ResultValue Glucose, Serum 173 H NA 139 K 4.3 CL 105 Bicarbonate, Serum 25 Anion Gap, Serum 13 BUN 11 CREAT 0.84 GFR-Non >60 GFR- >60 Calcium, Serum 9.0 Complete Blood Count 28-Apr-2020 04:15:00 ResultValue White Blood Cell Count 8.4 Red Blood Cell Count 4.52 HGB 13.8 HCT 41.3 MCV 91 MCHC 33.4 PLT 239 RDW-CV 13.8 Culture, Blood Trending View [id number] 08:33:00 27-Apr-2020 07:49:00 Culture, BloodNEGATIVE TO DATE, CULTURE IN PROGRESS. NEGATIVE TO DATE, CULTURE IN PROGRESS. COOX Panel, Arterial 27-Apr-2020 08:20:00 ResultValue HGB 16.5 Oxy Hgb, Arterial 95.3 CO Hgb, Arterial 1.1 Met Hgb, Arterial 0.6 Deoxy Hgb, Arterial 3.0 Guille's Test (Collateral Circulation) Yes Arterial Full Panel 27-Apr-2020 08:20:00 ResultValue pH, Arterial 7.37 L pCO2, Arterial 41 pO2, Arterial 95 FIO2 28 SO2, Arterial 97 HCT 49.0 Sodium-Level 137 Potassium-Level 3.8 Chloride-Level 103 Calcium, Ionized-Level 1.21 Glucose-Level 113 H Lactate-Level 1.4 Base Excess-Blood -1.7 Bicarbonate, Calculated, Arterial 23.4 HGB, Calculated 16.5 Guille's Test (Collateral Circulation) Yes Coronavirus 2019 by PCR 27-Apr-2020 08:10:00 ResultValue Fluid Source Nasal, Nasopharyngeal Coronavirus 2019,PCR NOT DETECTED Reference Range: Not Detected This assay is designed to detect the RdRp gene of SARS-CoV-2 via nucleic acid amplification. A Not Detected result does not preclude COVID-19 infection since the adequacy of sample collection and/or lo Complete Blood Count + Differential 27-Apr-2020 07:49:00 ResultValue White Blood Cell Count 10.2 Red Blood Cell Count 5.41 HGB 16.7 HCT 49.2 MCV 91 MCHC 33.9 PLT 256 RDW-CV 13.6 Neutrophil % 61.3 Immature Granulocytes % 0.2 Lymphocyte % 20.6 Monocyte % 8.7 Eosinophil % 8.6 Basophil % 0.6 Neutrophil Count 6.24 Lymphocyte Count 2.10 Monocyte Count 0.88 Eosinophil Count 0.87 H Basophil Count 0.06 Comprehensive Metabolic Panel 27-Apr-2020 07:49:00 ResultValue Glucose, Serum 118 H NA 140 K 4.0 CL 102 Bicarbonate, Serum 25 Anion Gap, Serum 17 BUN 6 CREAT 0.92 GFR-Non >60 GFR- >60 Calcium, Serum 9.5 ALB 4.2 ALKP 65 T Pro 7.8 T Bili 0.8 Alanine Aminotransferase, Serum 60 H Aspartate Transaminase, Serum 36 PT + INR, Plasma 27-Apr-2020 07:49:00 ResultValue Prothrombin Time, Plasma 13.2 International Normalized Ratio, Plasma 1.1 Lactate, Level 27-Apr-2020 07:49:00 ResultValue Lactate, Level 1.6 Brain Natriuretic Peptide 27-Apr-2020 07:49:00 ResultValue Brain Natriuretic Peptide 19 Troponin I, Serum 27-Apr-2020 07:49:00 ResultValue Troponin I, Serum <0.02 Results: Conclusion: Sinus tachycardia Possible Right atrial enlargement POOR R-WAVE PROGRESSION Borderline ECG No previous ECGs available Confirmed by SWAPNA SHAW MD ([id number]) on 04/27/2020 7:31:04 PM Electrocardiogram 12 Lead [Apr 27 2020 7:31PM] Impression: 1. Mild COPD. Xray Chest 1 View [Apr 27 2020 8:45AM] Assessment and Plan: Pulmonary: Diagnosis: asthma/COPD exacerbation with respiratory infection Assessment: Smoking cessation discussed the patient. Plan: Treated with DuoNeb steroids and antibiotic. Improving. Other: Diagnosis: History of alcohol, marijuana, heroin and cocaine abuse counseling done about that. Plan: Monitor for withdrawal DTs Code Status: Code StatusFull Code Signatures/Attestatio n/Certification: Note Completion: Critical Care PatientI have reviewed and evaluated the most recent data and results, personally examined the patient, and formulated the plan of care as presented above. This patient was critically ill and required continued critical care treatment. Teaching and any separately billable procedures are not included in the time calculation. Billing Provider Critical Care Time35 minute(s) Primary Critical Care Issue/Treatment (See Assessment and Plan for greater detail)-- For the nature of the critical condition and treatment, this documentation has been prepared by the attending physician/LASHON- billing provider of these critical care services.; -- This patient is known, or believed, to have sustained a life-threatening overdose. We are treating with appropriate medications, hemodynamic support, dialysis, ventilatory and/or oxygenating support, as indicated, as well as doing intensive diagnostic evaluation and monitoring. Please see assessment and plan above for greater detail. Attending Provider Inpatient Certification StatementI certify this patients need for inpatient care based on the above documentation including; the order to admit as inpatient, the anticipated length of stay, diagnosis, problem list and plan of care, and discharge plan. Admission Order - View OnlyCurrent Admission Order. Admit to Inpatient Adult Community_ Admitting Diagnosis, R06.03 Respiratory distress;J98.01 Bronchospasm, acute , Attending Provider Saul Guerrero Decision to Admit: 27-Apr-2020 Mellisa Witt Admission Order Certification order has been placed by Saul Guerrero Electronic Signatures: Saul Guerrero) (Signed 28-Apr-2020 17:00) Authored: Service, History of Present Illness, Comorbidities, Social History, Allergies, Medications Prior to Admission, Review of Systems, Objective, Assessment and Plan, Signatures/Attestatio n/Certification Last Updated: 28-Apr-2020 17:00 by Saul Guerrero) [facility] ARTERIAL FULL PANELon 2019 BASE EXCESS-BLOOD -1.7 mmol/L Normal -2.0 - 3.0 [facility] Comment on above: Performed By: #### A FPA3 #### [address] [address] CALCIUM,IONIZED 1.21 mmol/L Normal 1.10 - 1.33 [facility] Comment on above: Performed By: #### A FPA3 #### [address] [address] Chloride [Moles/Vol] 103 mmol/L Normal 98 - 107 [facility] Comment on above: Performed By: #### A FPA3 #### [address] [address] FIO2 28 % Normal [facility] Comment on above: Performed By: #### A FPA3 #### [address] [address] Glucose [Mass/Vol] 113 mg/dL High 74 - 99 [facility] Comment on above: Performed By: #### A FPA3 #### [address] [address] Hematocrit (Bld) [Volume fraction] 49.0 % Normal 41.0 - 52.0 [facility] Comment on above: Performed By: #### A FPA3 #### [address] [address] HGB,CALCULATED 16.5 g/dL Normal 13.5 - 17.5 [facility] Comment on above: Performed By: #### A FPA3 #### [address] [address] Lactate [Moles/Vol] 1.4 mmol/L Normal 0.4 - 2.0 [facility] Comment on above: Performed By: #### A FPA3 #### [address] [address] Oxygen (Bld) [Partial pressure] 95 mm[Hg] Normal 85 - 95 [facility] Comment on above: Performed By: #### A FPA3 #### [address] [address] PCO2 41 mmHg Normal 38 - 42 [facility] Comment on above: Performed By: #### A FPA3 #### [address] [address] pH (Bld) 7.37 [pH] Low 7.38 - 7.42 [facility] Comment on above: Performed By: #### A FPA3 #### [address] [address] Potassium [Moles/Vol] 3.8 mmol/L Normal 3.5 - 5.3 [facility] Comment on above: Performed By: #### A FPA3 #### [address] [address] RBC (Bld) [#/Vol] 23.4 mmol/L Normal 22.0 - 26.0 [facility] Comment on above: Performed By: #### A FPA3 #### [address] [address] SO2 97 % Normal 94 - 100 [facility] Comment on above: Performed By: #### A FPA3 #### [address] [address] Sodium [Moles/Vol] 137 mmol/L Normal 136 - 145 [facility] Comment on above: Performed By: #### A FPA3 #### [address] [address] Admission Risk Screen - Adul ton 04-27-2020 Admission Risk Screen - Adult Allergies: Allergies: penicillin: Unknown Patient Verification: New W ID Band Applied in my Departmentyes Patient Identity Verified Bypatient ID Band FULL Name, include Middle, spelling matches patient's ID used for verificationyes ID Band Matches Patient ID used for Verficationyes ID Band MRN Matches EMR MRNyes Visitor Restriction: Coronavirus Visitor Restriction: Reasonable restrictions to in-person visitors will be observed due to current coronavirus pandemic. Travel History: COVID-19 Screening Completedpositive for symptoms(1) Advance Directive: Advance Directive/DNRno Advance Directive Information Givenpatient/family declined Falls Screen: Type of Assessmentadmission Risk for Injury Associated with Fallnone Fall Risk Conclusionmoderate falls risk with low risk for associated injury [place] Safety InterventionsWDL *orient to call system *instruct to call for assistance before getting out of bed *non-slip footwear when patient is out of bed *call moore in reach *personal items and telephone in reach *physically safe environment (no spills or clutter) *bed in lowest position with wheels locked *appropriate side rails in place *room/bathroom lighting operational, light cord in reach *appropriate signage on door Family Violence Screen: Are you or have you been threatened or abused physically, emotionally, or sexually by anyoneno Do you feel UNSAFE going back to the place where you are livingno Clinical assessment: Are there any apparent signs of injuries/behaviors that could be related to abuse/neglectno Social Service Consult for abuse/neglect needed this visitno Functional Screen: Functional Screen: In the recent/past 2-4 weeks, patient or family have noticedno issues that require a speech/language consult at this time AM-PAC- Basic Mobility/Daily Activity: Patient baseline bedboundyes Learning Assessment (Patient): Patient is Able to be Assessed for Learningyes Factors Influencing Readiness to Learnanxiety Factors that Impact Ability to Learnnone Devices/Methods Used to Communicatenone Learning Preferencesaudio Cultural Considerationsnone Developmental Considerationsnone Bahai Considerationsnone Learning Assessment (Other Learner): Other learner availableno Suicide/Depression Screen: During the past month, have you often been bothered by feeling down, depressed or hopelessno During the past month, have you often had little interest or pleasure in doing thingsno Have you had any thoughts of harming yourselfno Have you had any thoughts of harming anyone elseno (1) Adult Nutrition Screen: Have you recently lost weight without tryingno Have you been eating poorly because of a decreased appetiteno Malnutrition Screening Tool Score0 Malnutrition Screening Tool RiskMST = 0 or 1 Not at risk. Eating well with little or no weight loss Nutrition Consult needed this visitno Can Patient Participate in Room Serviceyes Patient requires Paper Dishes/Plastic Utensilsno Pain Screen: Pain Scalenumerical 0-10 Pain Scale Educationteaching provided Current Pain Level0 = None Acceptable Pain Level0 = None Expression of Pain (nonverbal)none Chronic Painno Spiritual Screen: Are there any cultural, spiritual, presybeterian practices/values/need s that are important for us to knowno CAGE: Is this an injured patient at a Trauma Center ([facility]/[place]/[place]): no Vaccinations: Vaccination - Influenza Vaccination Screen: Is it flu season (between and February 21)No Vaccination - Pneumonia Vaccination Screen: Patient has received a previous pneumonia vaccine:no/unknown... Immunocompetent persons with underlying chronic conditions or reside in manager long term care care facilitiesnone of these conditions Persons with Functional or Anatomic Asplenianone of these conditions Immunocompromised Personsnone of these conditions Pneumonia vaccine NOT indicated due to:patient DOES NOT have a condition that indicates vaccination Nguyễn: Skin - Nguyễn Scale: Nguyễn: Sensory Perception (response to environment)(4) no impairment Nguyễn: Moisture (degree skin exposed to moisture)(4) rarely moist Nguyễn: Activity (ability to walk)(4) walks frequently Nguyễn: Mobility (amount/control of body movement)(4) no limitation Nguyễn: Nutrition (quality of food intake)(3) adequate Nguyễn: Friction and Shear(3) no apparent problem Nguyễn: Score22 Significant Indicatiors: Significant Indicators: Complete Pressure Injury: Pressure Injury Present on Admissionno Second Nurse Checkpatient would not allow to look at buttocks at this time. denies Electronic Signatures: Sowmya Cristobal (RN) (Signed 27-Apr-2020 11:45) Authored: Admission Risk Screens, Vaccinations, Nguyễn, Pressure Injury Last Updated: 27-Apr-2020 11:45 by Sowmya Cristobal (ANSELMO) References: 1. Data Referenced From Triage - ED 27-Apr-2020 07:38 Normal [facility] BLOOD CULTURE, BACTERIALon 0 04-27-2020 Cholesterol [Mass/Vol] PATIENT: TIP ANSARI LOCATION: [address]#: [id number] : 84 AGE: SEX: M ORDERED BY: MELLISA WITT SOURCE: Blood COLLECTED: 04/27/20 08:33 ANTIBIOTICS AT LIU.: RECEIVED : 04/27/20 18:00 SITE: R E S U L T S BLOOD CULTURE, BACTERIAL FINAL 05/02/20 19:42 No Growth at 1 days No Growth at 2 days No Growth at 3 days No Growth at 4 days NO GROWTH - FINAL REPORT Normal [facility] Comment on above: Performed By: #### P TINR #### [address] [address] Cholesterol [Mass/Vol] PATIENT: TIP ANSARI LOCATION: [address]#: [id number] : 84 AGE: SEX: M ORDERED BY: MELLISA WITT SOURCE: Blood COLLECTED: 04/27/20 07:49 ANTIBIOTICS AT LIU.: RECEIVED : 04/27/20 18:00 SITE: R E S U L T S BLOOD CULTURE, BACTERIAL FINAL 05/02/20 19:42 No Growth at 1 days No Growth at 2 days No Growth at 3 days No Growth at 4 days NO GROWTH - FINAL REPORT Normal [facility] Comment on above: Performed By: #### P TINR #### [place] [id number] BNPon 04-27-2020 Natriuretic peptide B (Bld) [Mass/Vol] 19 pg/mL Normal 0 - 99 [facility] Comment on above: Result Comment: . <1 00 pg/mL - Heart failure unlikely 100-299 pg/mL - Intermediate probability of acute heart . failure exacerbation. Correlate with clinical . context and patient history. >=300 pg/mL - Heart Failure likely. Correlate with clinical . context and patient history. BNP testing is performed using different testing methodology at [facility] than at other [facility]. Direct result comparisons should only be made within the same method. Performed By: #### B NP2 #### [address] [address] CBC AND DIFFERENTIALon 04-27 % AUTOMATED IMMATURE GRAN 0.2 % Normal 0.0 - 0.9 [facility] Comment on above: Result Comment: [place] ture Granulocyte Count (IG) includes promyelocytes, myelocytes and metamyelocytes but does not include bands. Percent differential counts (%) should be interpreted in the context of the absolute cell counts (cells/L). Performed By: #### C BCDF #### [address] [address] Basophils (Bld) [#/Vol] 0.06 10*3/uL Normal 0.00 - 0.1 0 [facility] Comment on above: Performed By: #### C BCDF #### [address] [address] Basophils/100 WBC (Bld) 0.6 % Normal 0.0 - 2.0 [facility] Comment on above: Performed By: #### C BCDF #### [address] [address] Eosinophils (Bld) [#/Vol] 0.87 10*3/uL High 0.00 - 0.70 [facility] Comment on above: Performed By: #### C BCDF #### [address] [address] Eosinophils/100 WBC (Bld) 8.6 % Normal 0.0 - 6.0 [facility] Comment on above: Performed By: #### C BCDF #### [address] [address] Erythrocyte distribution width (RBC) [Ratio] 13.6 % Normal 11.5 - 14.5 [facility] Comment on above: Performed By: #### C BCDF #### [address] [address] Hematocrit (Bld) [Volume fraction] 49.2 % Normal 41.0 - 52.0 [facility] Comment on above: Performed By: #### C BCDF #### [address] [address] Hemoglobin (Bld) [Mass/Vol] 16.7 g/dL Normal 13.5 - 17.5 [facility] Comment on above: Performed By: #### C BCDF #### [address] [address] Lymphocytes (Bld) [#/Vol] 2.10 10*3/uL Normal 1.20 - 4.80 [facility] Comment on above: Performed By: #### C BCDF #### [address] [address] Lymphocytes/100 WBC (Bld) 20.6 % Normal 13.0 - 44.0 [facility] Comment on above: Performed By: #### C BCDF #### [address] [address] MCHC (RBC) [Mass/Vol] 33.9 g/dL Normal 32.0 - 36.0 [facility] Comment on above: Performed By: #### C BCDF #### [address] [address] MCV (RBC) [Entitic vol] 91 fL Normal 80 - 100 [facility] Comment on above: Performed By: #### C BCDF #### [address] [address] Monocytes (Bld) [#/Vol] 0.88 10*3/uL Normal 0.10 - 1.0 0 [facility] Comment on above: Performed By: #### C BCDF #### [address] [address] Monocytes/100 WBC (Bld) 8.7 % Normal 2.0 - 10.0 [facility] Comment on above: Performed By: #### C BCDF #### [address] [address] Neutrophils (Bld) [#/Vol] 6.24 10*3/uL Normal 1.20 - 7.70 [facility] Comment on above: Performed By: #### C BCDF #### [address] [address] Neutrophils/100 WBC (Bld) 61.3 % Normal 40.0 - 80.0 [facility] Comment on above: Performed By: #### C BCDF #### [address] [address] Platelets (Bld) [#/Vol] 256 10*3/uL Normal 150 - 450 [facility] Comment on above: Performed By: #### C BCDF #### [address] [address] RBC (Bld) [#/Vol] 5.41 x10E12/L Normal 4.50 - 5.90 [facility] Comment on above: Performed By: #### C BCDF #### [address] [address] WBC (Bld) [#/Vol] 10.2 10*3/uL Normal 4.4 - 11.3 [facility] Comment on above: Performed By: #### C BCDF #### [address] [address] CHEST 1 VIEWon 04-27-2020 CHEST 1 VIEW Patient Name: TIP ANSARI STUDY: CHEST 1 VIEW; 04/27/2020 8:25 am INDICATION: SOB. COMPARISON: None. ACCESSION NUMBER(S): [id number] ORDERING CLINICIAN: MELLISA WITT FINDINGS: CARDIOMEDIASTINAL SILHOUETTE AND VASCULATURE: Cardiac size: Within normal limits. Aortic shadow: Within normal limits considering portable technique Mediastinal contours: Within normal limits considering portable technique Pulmonary vasculature: Within normal limits without definite congestion LUNGS: Appears to be mild hyperinflation lungs particular at the left upper chest indicating DEPUTY COURT CLERK D. The lungs are clear without discrete infiltrate. ABDOMEN AND OTHER FINDINGS: No remarkable upper abdominal findings. BONES: No acute osseous changes. IMPRESSION: 1. Mild COPD. Electronically signed by: VINCE OROZCO MD Normal [facility] COMPREHENSIVE PANELon 2019 Albumin [Mass/Vol] 4.2 g/dL Normal 3.4 - 5.0 [facility] Comment on above: Performed By: #### C MP #### [address] [address] ALP [Catalytic activity/Vol] 65 U/L Normal 33 - 120 [facility] Comment on above: Performed By: #### C MP #### [address] [address] ALT [Catalytic activity/Vol] 60 U/L High 10 - 52 [facility] Comment on above: Result Comment: Susanne ents treated with Sulfasalazine may generate falsely decreased results for ALT. Performed By: #### C MP #### [address] [address] Anion gap [Moles/Vol] 17 mmol/L Normal 10 - 20 [facility] Comment on above: Performed By: #### C MP #### [address] [address] AST [Catalytic activity/Vol] 36 U/L Normal 9 - 39 [facility] Comment on above: Performed By: #### C MP #### [address] [address] Bilirubin [Mass/Vol] 0.8 mg/dL Normal 0.0 - 1.2 [facility] Comment on above: Performed By: #### C MP #### [address] [address] Calcium [Mass/Vol] 9.5 mg/dL Normal 8.6 - 10.3 [facility] Comment on above: Performed By: #### C MP #### [address] [address] Chloride [Moles/Vol] 102 mmol/L Normal 98 - 107 [facility] Comment on above: Performed By: #### C MP #### [address] [address] Creatinine [Mass/Vol] 0.92 mg/dL Normal 0.50 - 1.30 [facility] Comment on above: Performed By: #### C MP #### [address] [address] GFR- AM. >60 Normal >60 [facility] Comment on above: Result Comment: CALC ULATIONS OF ESTIMATED GFR ARE PERFORMED USING THE MDRD STUDY EQUATION FOR THE IDMS-TRACEABLE CREATININE METHODS. CLIN CHEM 2007;53:766-72 Performed By: #### C MP #### [address] [address] GFR-NON AM. >60 Normal >60 [facility] Comment on above: Performed By: #### C MP #### [address] [address] Glucose [Mass/Vol] 118 mg/dL High 74 - 99 [facility] Comment on above: Performed By: #### C MP #### [address] [address] HCO3 (Bld) [Moles/Vol] 25 mmol/L Normal 21 - 32 [facility] Comment on above: Performed By: #### C MP #### [address] [address] Potassium [Moles/Vol] 4.0 mmol/L Normal 3.5 - 5.3 [facility] Comment on above: Performed By: #### C MP #### [address] [address] Protein [Mass/Vol] 7.8 g/dL Normal 6.4 - 8.2 [facility] Comment on above: Performed By: #### C MP #### [address] [address] Sodium [Moles/Vol] 140 mmol/L Normal 136 - 145 [facility] Comment on above: Performed By: #### C MP #### [address] [address] Urea nitrogen [Mass/Vol] 6 mg/dL Normal 6 - 23 [facility] Comment on above: Performed By: #### C MP #### [address] [address] COOX PANEL, ARTERIALon 04-27 GUILLE'S TEST[COLLATERAL CIRCULATION] Yes Normal [facility] Comment on above: Performed By: #### C OOXA #### [address] [address] Performed By: #### A FPA3 #### [address] [address] DEOXY HGB 3.0 % Normal 0.0 - 5.0 [facility] Comment on above: Performed By: #### C OOXA #### [place] [address] Hemoglobin (Bld) [Mass/Vol] 1.1 % Normal [facility] Comment on above: Result Comment: REF VALUES NONSMOKERS 0.5-1.5% SMOKERS 0.5-10.0% Performed By: #### C OOXA #### [place] [address] Hemoglobin (Bld) [Mass/Vol] 16.5 g/dL Normal 13.5 - 17.5 [facility] Comment on above: Performed By: #### C OOXA #### [place] [address] MET HGB 0.6 % Normal 0.0 - 1.5 [facility] Comment on above: Performed By: #### C OOXA #### [place] [address] OXY HGB 95.3 % Normal 94.0 - 98.0 [facility] Comment on above: Performed By: #### C OOXA #### [place] [address] CORONAVIRUS 2019 BY PCRon CORONAVIRUS 2019,PCR NOT DETECTED Normal Not Detected [facility] Comment on above: Result Comment: This assay is designed to detect the RdRp gene of SARS-CoV-2 via nucleic acid amplification. A Not Detected result does not preclude COVID-19 infection since the adequacy of sample collection and/or low viral burden may result in presence of viral nucleic acids below the clinical sensitivity of this test method. Fact sheet for providers: www.fda.gov/media/877735/download Fact sheet for patients: www.fda.gov/media/701164/download This test has received FDA Emergency Use Authorization (EUA) and has been verified by [facility] ([facility]). This test is only authorized for the duration of time that circumstances exist to justify the authorization of the emergency use of in vitro diagnostic tests for the detection of SARS-CoV-2 virus and/or diagnosis of COVID-19 infection under section 564(b)(1) of the Act, 21 U.S.C. 360bbb-3(b)(1), unless the authorization is terminated or revoked sooner. [facility] is certified under CLIA-88 as qualified to perform high complexity testing. Testing is performed in the [facility] laboratory located at [address] [place] [address]. Performed By: #### C OV19 #### [place] [address] Lab Specimen Source Nasal, Nasopharyngeal Normal [facility] Comment on above: Performed By: #### C OV19 #### [place] [address] History and Physical - Criti hemalatha Kashif 04-27-2020 History and Physical - Critical Care Service: Critical Care Service: ServiceMICU History of Present Illness: Admission Reason: Shortness of breath HPI: Patient admitted increased shortness of breath wheezing cough chest tightness and congestion with white-yellow sputum production. Denies any sick flulike symptoms or COVID-19 symptoms no aches no pains no nausea no vomiting or diarrhea. Past medical history none Social history patient continues smoke, does use alcohol and heroin and cocaine. And marijuana. Social History: Social History: Smoking Statusmoderate tobacco user (smokes >10 cigs daily, OR > ppd, OR 2-3 cans/pouches loose leaf tobacco per week) Alcohol Usedaily Drug Usedaily Drug 2 Usedaily Allergies: penicillin: Unknown Medications Prior to Admission: Admission Medication Reconciliation has not been completed for this patient. Review of Systems: Respiratory: POSITIVE: Dry Cough, Productive Cough, Wheezing, Shortness of Breath Genitourinary: COMMENTS: na Breast: COMMENTS: na All Other Systems: All other systems reviewed and are negative Objective: Objective Information: Objective Information T PRBPSpO2 [id number]/809 5% Date/Time04/27 7: 11: 11: 11: 11:35 Range(36.5C - 36.5C ) (118 - 142 ) (23 - 32 ) (126 - 152 )/ (80 - 108 ) (91% - 100% ) As of 27-Apr-2020 11:35:00, patient is on 2 L/min of oxygen via nasal cannula. Pain reported at 04/27 7:38: 0 = None Date: Weight/Scale Type: 27-Apr-2020 11:3780.7 kg / bed 27-Apr-2020 07:3886 kg Medications: Medications: Continuous Medications No continuous medications are active Scheduled Medications 1. Albuterol 2.5mg - Ipratropium 0.5 mg/ 3mL Neb Soln: 3 mL Inhalation Every 4 Hours 2. Docusate: 100 mg Oral 2 Times a Day 3. Enoxaparin SubCutaneous: 40 mg SubCutaneous Every 24 Hours 4. levoFLOXacin (LEVAQUIN) 750 mg IVPB/ Premix 150 mL: 150 mL IntraVenous Piggyback Every 24 Hours 5. Loratadine: 10 mg Oral Daily 6. methylPREDNISolone Sodium Succinate Injectable: 60 mg IntraVenous Push Every 6 Hours 7. Montelukast: 10 mg Oral At Bedtime 8. Multivitamin with Minerals: 1 tablet(s) Oral Daily 9. Theophylline Extended Release (Darnell-24): 300 mg Oral Every 24 Hours PRN Medications 1. Albuterol 2.5mg - Ipratropium 0.5 mg/ 3mL Neb Soln: 3 mL Inhalation Every 1 Hour 2. Buprenorphine SubLingual: 2 mg SubLingual Every 4 Hours 3. cloNIDine (CATAPRES): 0.1 mg Oral Every 4 Hours 4. Ondansetron: 4 mg Oral Every 4 Hours Recent Lab Results: Results: CBC: 04/27/2020 07:49 \ Hgb / \ 16.7 / WBC Plt 10.2 256 / Hct \ / 49.2 \ RBC: 5.41 MCV: 91 Neutrophil %: 61.3 CMP: 04/27/2020 07:49 NA+ Cl- BUN / 140 102 6 / Glucose ------ 118 H K+ HCO3- Creat \ 4.0 25 0.92 \ \ T Bili / \ 0.8 / AST x ---- x ALT 36 x ---- x 60 H / Alk P \ / 65 \ Calcium : 9.5 Anion Gap : 17 Albumin : 4.2 T Protein : 7.8 Coagulation: 04/27/2020 07:49 PT / 13.2 / -------< INR < 1.1 PTT\ \ Recent Arterial Blood Gas Results 04/27/2020 08:20 pO295 pH7.37 dTZ455 SO297 Base Excess-1.7 [id number] I have reviewed these laboratory results: Culture, Blood Trending View [id number] 08:33:00 27-Apr-2020 07:49:00 Culture, BloodNEGATIVE TO DATE, CULTURE IN PROGRESS. NEGATIVE TO DATE, CULTURE IN PROGRESS. COOX Panel, Arterial 27-Apr-2020 08:20:00 ResultValue HGB 16.5 Oxy Hgb, Arterial 95.3 CO Hgb, Arterial 1.1 Met Hgb, Arterial 0.6 Deoxy Hgb, Arterial 3.0 Guille's Test (Collateral Circulation) Yes Arterial Full Panel 27-Apr-2020 08:20:00 ResultValue pH, Arterial 7.37 L pCO2, Arterial 41 pO2, Arterial 95 FIO2 28 SO2, Arterial 97 HCT 49.0 Sodium-Level 137 Potassium-Level 3.8 Chloride-Level 103 Calcium, Ionized-Level 1.21 Glucose-Level 113 H Lactate-Level 1.4 Base Excess-Blood -1.7 Bicarbonate, Calculated, Arterial 23.4 HGB, Calculated 16.5 Guille's Test (Collateral Circulation) Yes Coronavirus 2018 by PCR 27-Apr-2020 08:10:00 ResultValue Fluid Source Nasal, Nasopharyngeal Coronavirus 2019,PCR NOT DETECTED Reference Range: Not Detected This assay is designed to detect the RdRp gene of SARS-CoV-2 via nucleic acid amplification. A Not Detected result does not preclude COVID-19 infection since the adequacy of sample collection and/or lo Complete Blood Count + Differential 27-Apr-2020 07:49:00 ResultValue White Blood Cell Count 10.2 Red Blood Cell Count 5.41 HGB 16.7 HCT 49.2 MCV 91 MCHC 33.9 PLT 256 RDW-CV 13.6 Neutrophil % 61.3 Immature Granulocytes % 0.2 Lymphocyte % 20.6 Monocyte % 8.7 Eosinophil % 8.6 Basophil % 0.6 Neutrophil Count 6.24 Lymphocyte Count 2.10 Monocyte Count 0.88 Eosinophil Count 0.87 H Basophil Count 0.06 Comprehensive Metabolic Panel 27-Apr-2020 07:49:00 ResultValue Glucose, Serum 118 H NA 140 K 4.0 CL 102 Bicarbonate, Serum 25 Anion Gap, Serum 17 BUN 6 CREAT 0.92 GFR-Non >60 GFR- >60 Calcium, Serum 9.5 ALB 4.2 ALKP 65 T Pro 7.8 T Bili 0.8 Alanine Aminotransferase, Serum 60 H Aspartate Transaminase, Serum 36 PT + INR, Plasma 27-Apr-2020 07:49:00 ResultValue Prothrombin Time, Plasma 13.2 International Normalized Ratio, Plasma 1.1 Lactate, Level 27-Apr-2020 07:49:00 ResultValue Lactate, Level 1.6 Brain Natriuretic Peptide 27-Apr-2020 07:49:00 ResultValue Brain Natriuretic Peptide 19 Troponin I, Serum 27-Apr-2020 07:49:00 ResultValue Troponin I, Serum <0.02 Results: Conclusion: Sinus tachycardia Possible Right atrial enlargement POOR R-WAVE PROGRESSION Borderline ECG No previous ECGs available Confirmed by SWAPNA SHAW MD ([id number]) on 04/27/2020 7:31:04 PM Electrocardiogram 12 Lead [Apr 27 2020 7:31PM] Impression: 1. Mild COPD. Xray Chest 1 View [Apr 27 2020 8:45AM] Assessment and Plan: Pulmonary: Diagnosis: asthma/COPD exacerbation with respiratory infection Assessment: Smoking cessation discussed the patient. Plan: Treated with DuoNeb steroids and antibiotic. Other: Diagnosis: History of alcohol, marijuana, heroin and cocaine abuse counseling done about that. Plan: Monitor for withdrawal DTs Code Status: Code StatusFull Code Signatures/Attestatio n/Certification: Note Completion: Critical Care PatientI have reviewed and evaluated the most recent data and results, personally examined the patient, and formulated the plan of care as presented above. This patient was critically ill and required continued critical care treatment. Teaching and any separately billable procedures are not included in the time calculation. Billing Provider Critical Care Time40 minute(s) Primary Critical Care Issue/Treatment (See Assessment and Plan for greater detail)-- For the nature of the critical condition and treatment, this documentation has been prepared by the attending physician/LASHON- billing provider of these critical care services.; -- This patient is known, or believed, to have sustained a life-threatening overdose. We are treating with appropriate medications, hemodynamic support, dialysis, ventilatory and/or oxygenating support, as indicated, as well as doing intensive diagnostic evaluation and monitoring. Please see assessment and plan above for greater detail. Attending Provider Inpatient Certification StatementI certify this patients need for inpatient care based on the above documentation including; the order to admit as inpatient, the anticipated length of stay, diagnosis, problem list and plan of care, and discharge plan. Admission Order - View OnlyCurrent Admission Order. Admit to Inpatient Adult Community_ Admitting Diagnosis, R06.03 Respiratory distress;J98.01 Bronchospasm, acute , Attending Provider Saul Guerrero Decision to Admit: 27-Apr-2020 Mellisa Witt Electronic Signatures: Saul Guerrero) (Signed 27-Apr-2020 21:32) Authored: Service, History of Present Illness, Comorbidities, Social History, Allergies, Medications Prior to Admission, Review of Systems, Objective, Assessment and Plan, Signatures/Attestatio n/Certification Last Updated: 27-Apr-2020 21:32 by Saul Guerrero) Normal [facility] LACTATEon 04-27-2020 Lactate [Moles/Vol] 1.6 mmol/L Normal 0.4 - 2.0 [facility] Comment on above: Result Comment: Jane puncture immediately after or during the administration of Metamizole may lead to falsely low results. Testing should be performed immediately prior to Metamizole dosing. Performed By: #### L ACT ####[facility] [place] [address] PT/INRon 04-27-2020 INR Coag (PPP) [Relative time] 1.1 {INR} Normal 0.9 - 1.1 [facility] Comment on above: Performed By: #### P TINR #### [address] [address] PT Coag (PPP) [Time] 13.2 s Normal 10.1 - 13.3 [facility] Comment on above: Result Comment: Note new reference range as of 04/05/2020. Performed By: #### P TINR #### [address] [address] Patient Profile - Adult v2on 04-27-2020 Patient Profile - Adult v2 Profile: Initial Info: How to be Addressednick Spoken Language PreferredEnglish Source of Informationpatient Are you currently using the Personal Electronic Health Record or DataSyncno Stated Reason for Admissionsob Limitations on Visitors/Phone Callsnone Wants Family/Rep Notified of Admissionno Notify PCPdo not notify PCP Informed of Patient Visiting Rightsyes [place]rived [place] Employment Statusemployed Patient Belongingsremains with patient Patient Belongings Remaining with Patientcash/credit card; cell phone/electronics; clothing Medications Brought to Hospitalno General Health: Weight in kg80.7 kilogram(s) Weight in vag154.9 pound(s) Height in feet6 feet Height in inches1 inch(es) Height in cm185.4 centimeter(s) BMI (kg/m2)23.477 square meter Weight Methodactual (measured) Scale Typebed Height Methodstated [facility] [[email or web address]] Based Care: How would you like to participate in your rocio/a What is the number one concern for you during this hospitalizationn/a What is the most important thing we can do to support you during this hospitalizationn/a Is there anything we need to know to best care for june/a Substance: Current or Former Substance Use YES: Cigarette/Tobacco, Street Drugs Tobacco Cessation Education (provide if tobacco use within the last 12 mos)yes Other Tobacco Use Comments1/[address] Drug/Inhalant/ Medication Use Statuscurrent street drug/inhalant/medicat ion abuse Street Drug/Medication/ Inhalant Typecocaine; heroin Street Drug/Medication/ Inhalant Routesnorting Frequency of Street Drug/Medication/Inhal ant Use2-4 times/month Health Mgmt: Symptoms/Conditions Managed at [facility] Barriers to Managing Healthnone Relationship/Environ: Primary Source of Support/Comfortfriend Lives Withfriend(s) Living Arrangementsnursing home; house Resource/Environmenta l Concernsnone Anticipated Transition [place] Services Anticipated at Transitionnone Significant IndicatorsComplete Information Review: Allergies, Home Meds and Significant Events have been Reviewed and Verified with Patient/Familyyes ALLERGY, INTOLERANCE, ADVERSE EVENT: Allergies: penicillin: Drug, Unknown, Active Electronic Signatures: Sowmya Cristobal (ANSELMO) (Signed 27-Apr-2020 11:41) Authored: Profile, Additional Information Last Updated: 27-Apr-2020 11:41 by Sowmya Cristobal (ANSELMO) [facility] Provider Note - ED v2on 04-11 Provider Note - ED v2 Provider Note - ED v2: Chart Review: ED NOTES ED NOTES: Patient into the emergency department from home with complaints of shortness of breath. Patient states that he has had gradually worsening shortness of breath over the past week. He states that he is had a cough that is intermittently productive of some yellow phlegm. He states that this morning he woke up with the shortness of breath being most pronounced. He states that he broke out into sweats. He ultimately came into the emergency department for evaluation. He has not felt feverish up until this morning. He states that back in 2014 he did have a significant bout of pneumonia for which he was hospitalized. He states that he has bilateral chest pain from all the rapid breathing. He states that he is feeling wheezy. No prior history of COPD asthma emphysema. No recent prolonged travel or time of immobilization. No prior history of any DVTs or PEs. No leg pain or calf pain or swelling. Again no underlying history of any cardiac history. No other complaints. HISTORY OF PRESENTING ILLNESS TIP is a 40 year old Male and was seen by me at 27-Apr-2020 07:38 for a chief complaint of shortness of breath . Triage Information: Most recent Vital Sign Value Date Temp (F): 97.7 04-27-2020 07:38 Temp (C): 36.5 04-27-2020 07:38 Heart Rate (beats/min): 122 04-27-2020 07:38 Respirations (breaths/min): 32 04-27-2020 07:38 SpO2 (%): 91 04-27-2020 07:38 BP Systolic (mm Hg): 152 04-27-2020 07:38 BP Diastolic (mm Hg): 108 04-27-2020 07:38 PAST MEDICAL HISTORY ATTESTATION: I have reviewed and confirmed nurse's/medic's notes for patient's medications, allergies, medical history, and surgical history ALLERGIES/INTOLERANCE S: Allergy Allergen: penicillin Type: Drug Reaction: Unknown HEALTH HISTORY: No documented data. OUTPATIENT MEDICATIONS: Home Medications Review Status for Reconciliation: Incomplete Med Status: Incomplete Medication History No documented data. SIGNIFICANT EVENTS: No documented data. REVIEW OF SYSTEMS All other systems reviewed and are negative PHYSICAL EXAM CONSTITUTIONAL: Appearance: well appearing Development: well developed Distress: MODERATE Manner: appropriate for situation Mentation: awake, alert and oriented to person, place, time/situation Mood: (Anxious) Nourishment: well HENMT: Mouth: (Moist mucous membranes) EYES: Clear bilaterally, pupils equal, round and reactive to light. CARDIOVASCULAR: Cardiac Rhythm: regular Cardiac Rate: TACHYCARDIC Murmur: no murmur RESPIRATORY: Respiratory Distress: (Patient is tachypneic with accessory muscle use. He speaking in broken sentences.He is tripoding.Coarse expiratory wheezes bilaterally.He is retracting.Patient in moderate respiratory distress.) GASTROINTESTINAL: Abdominal Exam: soft Abdominal Guarding: no guarding Rebound: no rebound tenderness GENITOURINARY: CVA Tenderness: non-tender MUSCULOSKELETAL: Musculoskeletal Exam: (Full range of motion in all 4 extremities.Symmetric distal pulses. There is no peripheral edema. No asymmetry to the limbs. No calf pain.) NEUROLOGICAL: Level of Consciousness: alert and follows commands Speech: clear SKIN: Skin Color: (Patient is profusely diaphoretic) PSYCHIATRIC: Level of Consciousness: alert and follows commands Mood: ANXIOUS Affect: normal Speech: clear RESULTS/VITAL SIGNS VITAL SIGNS: T PRBP SpO2O2(LPM) %FiO2 Method 27-Apr-2020 07:38:[id number] /108 91 room air, no respiratory support MEDICAL DECISION MAKING/ED COURSE MDM/ED COURSE: Patient into the emergency department tachycardic and tachypneic, somewhat hypoxic at 91% on room air, patient is profusely diaphoretic but afebrile. Again he arrives tachypneic with accessory muscle use speaking in broken sentences tripoding. He is in some moderate respiratory distress. Coarse expiratory wheezes bilaterally. On cardiac exam he is tachycardic. No obvious murmurs. Abdomen is nice and soft. No peripheral edema. No asymmetry to the limbs. Symmetric distal pulses. EKG obtained shortly after the patient's arrival to the emergency department by my interpretation is with a sinus tachycardic rhythm and without any acute ST-T wave changes or any other signs would be concerning for ischemia. I did go out and order some basic labs. Breathing treatments are ordered for the patient. He is given some steroids and magnesium sulfate IV over 5 minutes. Chest x-ray and cultures were also ordered. I will reevaluate the patient shortly. ABG obtained shortly after the patient's arrival to the emergency department on 2 L nasal cannula comes back at: 7.37/41/95/23. CBC comes back without any gross abnormalities. Metabolic panel is without any gross electrolyte abnormalities or any significant renal insufficiency. Cardiac markers are unremarkable. Chest x-ray per radiology is with findings suggestive of COPD. No acute infiltrates are mentioned. Coronavirus swab is negative. Patient reevaluated after continuous breathing treatments and has ongoing expiratory wheezes and increased work of breathing with accessory muscle use. Wheezing has improved some. Patient no longer diaphoretic. He does remain on supplemental oxygen at 2 L per nasal cannula. He continues to speak in broken sentences. Patient understands that he cannot go home in this condition. He is amenable to being admitted. Given the ongoing respiratory distress I did admit the patient to the ICU. Case is discussed with Dr. Guerrero the route vending machine servicer, who kindly agrees to except patient onto his service for continued care. Given the productive phlegm the patient is given a dose of Levaquin here in the emergency department. I did order some additional breathing treatments for the patient. Patient ultimately admitted for continued care. CLINICAL IMPRESSION Diagnosis/Annotation: ED Dx Name:Respiratory distress Code:R06.03 Name:Bronchospasm, acute Code:J98.01 Dispostion: hospitalized Admit to: ICU. Admitting Considerations: ATTESTATION CRITICAL CARE TIME Is this a critically ill patient: yes Billing Provider Critical Care Time (mins): 65 Primary Critical Care Issue/Treatment (See MDM/ED Course/Tx Plan for greater detail): (acute respiratory distress) Additional Critical Care Provided: direct patient care (not related to procedure), additional history taking, interpretation of diagnostic studies, documentation and consultation with other physicians Electronic Signatures: Mellisa Witt) (Signed 27-Apr-2020 09:26) Authored: Provider Note - ED v2 Last Updated: 27-Apr-2020 09:26 by Mellisa Witt) References: 1. Data Referenced From Triage - ED 27-Apr-2020 07:38 Normal [facility] TROPONIN Ion 04-27-2020 Troponin I.cardiac [Mass/Vol] ng/mL Normal 0.00 - 0.03 [facility] Comment on above: Result Comment: LESS THAN 0.04 NG/ML: NEGATIVE REPEAT TESTING IN THREE TO SIX HOURS IF CLINICALLY INDICATED. 0.04 - 0.5 NG/ML: CONSISTENT WITH POSSIBLE CARDIAC DAMAGE AND POSSIBLE INCREASED CLINICAL RISK. SERIAL MEASUREMENTS MAY HELP ASSESS EXTENT OF MYOCARDIAL DAMAGE. >0.5 NG/ML: CONSISTENT WITH CARDIAC DAMAGE, INCREASED CLINICAL RISK AND MYOCARDIAL INFARCTION. SERIAL MEASUREMENTS MAY HELP ASSESS EXTENT OF MYOCARDIAL DAMAGE. . Note: Troponin I testing is performed using different testing methodology at [facility] than at other [facility]. Direct result comparisons should only be made within the same method. Performed By: #### T ROP2 #### [address] [address] Triage - EDon 04-27-2020 Triage - ED Quick Triage: The patient and/or guardian verbally acknowledges placement for services into the following (when Urgent Care Service hours are operating):emergency department Chart Review: CHIEF COMPLAINT TIP ANSARI is a Male patient with a chief complaint of shortness of breath. Triage Date/Time: 27-Apr-2020 07:38 Pain Rating (0-10): 0 = None Vital Signs: Temperature: 97.7F ( 36.5C) taken forehead Blood Pressure: 152/108 Mean: Heart Rate: 122 Respiratory Rate: 32 Pulse Oximetry: 91% on room air, no respiratory support. Height: 6 feet 1.00 inches. 185.4 CM Weight: 189.5 pounds. Calculated 86.0 kg. (stated) Calculated BMI (kg/m2): 25.019 Calculated BSA (m2) 2.10 [place] Coma Scale: Best Eye Response: (E4) spontaneous Best Motor Response: (M6) obeys commands Best Verbal Response: (V5) oriented Olvin Score: 15 Cough lasting greater than 3 weeks: no Allergies: yes Mask applied: yes Patient has homicidal thoughts: no NALDO: 2 Symptoms Are POSITIVE For: diaphoresis and dyspnea. Symptoms Are Negative For: body aches, chest pain, chills, congestion, cough, fever, headache and malaise. Risk Screens Suicide Risk Screen In the Past Month: Have you wished you were or wished you could go to sleep and not wake up no In the Past Month: Have you had any actual thoughts of killing yourself no In Your Lifetime: Have you ever done anything, started to do anything, or prepared to do anything to end your life no Parker Fall Scale Screening Has the patient fallen before (or is the patient in the ED as a result of a fall) has not had a fall Does the patient have an impaired gait does not have impaired gait Is the patient cognitively impaired not cognitively impaired Interventions: Parker Fall Interventions: *patient oriented to surroundings and call system, * patient/family falls education completed and documented, *patients fall status communicated during bedside handoff, *whiteboard updated, *mode of toileting discussed with patient, *bed in low position with brakes locked, *call light in reach, * non-skid footwear PAIN Pain Scale Used: TEDDY Pain Rating (0-10): 0 = None TRAVEL HISTORY Travel History Coronavirus Screening: positive for symptoms Past Medical History: Past Medical History Reviewedyes Electronic Signatures: Brenna ShoemakerRN) (Signed 27-Apr-2020 07:39) Authored: Triage Abundio Ayon (MONCHO) (Signed 27-Apr-2020 07:58) Authored: Triage, Past Medical History Last Updated: 27-Apr-2020 07:58 by Abundio Ayon (MONCHO) Normal [facility] Vital Signs Date Time Vital Sign Value Performing Clinician Jagjit pryor 01-30-2024 17:17-0400 Body mass index (BMI) [Ratio] 24.41 kg/m2 Stu Lisa MD Work Phone: [facility] 01-30-2024 17:17-0400 Body temperature 98.4 [degF] Stu Lisa MD Work Phone: [facility] [employer] 01-30-2024 17:17-0400 Body weight 83.92 kg Stu Lisa MD Work Phone: [facility] [employer] 01-30-2024 17:17-0400 Diastolic blood pressure 77 mm[Hg] Stu Lisa MD Work Phone: [facility] [employer] 01-30-2024 17:17-0400 Heart rate 91 /min Stu Lisa MD Work Phone: [facility] [employer] 01-30-2024 17:17-0400 Respiratory rate 16 /min Stu Lisa MD Work Phone: [facility] [employer] 01-30-2024 17:17-0400 SaO2% (BldA) [Mass fraction] 97 % Stu Lisa MD Work Phone: [facility] [employer] 01-30-2024 17:17-0400 Systolic blood pressure 106 mm[Hg] Stu Lisa MD Work Phone: [facility] [employer] 07-09-2022 13:30-0400 Body temperature 98.4 [degF] Marisol Andrea MD Work Phone (unformatted): [id number] [facility] [employer] 07-09-2022 13:30-0400 Diastolic blood pressure 71 mm[Hg] Marisol Andrea MD Work Phone (unformatted): [id number] [facility] [employer] 07-09-2022 13:30-0400 Heart rate 84 /min Marisol Andrea MD Work Phone (unformatted): [id number] [facility] [employer] 07-09-2022 13:30-0400 Respiratory rate 18 /min Marisol Andrea MD Work Phone (unformatted): [id number] [facility] [employer] 07-09-2022 13:30-0400 SaO2% (BldA) [Mass fraction] 97 % Marisol Andrea MD Work Phone (unformatted): [id number] [facility] [employer] 07-09-2022 13:30-0400 Systolic blood pressure 109 mm[Hg] Marisol Andrea MD Work Phone (unformatted): [id number] [facility] [employer] 07-02-2022 14:07-0400 Body temperature 99 [degF] Marisol Andrea MD Work Phone (unformatted): [id number] [facility] [employer] 07-02-2022 14:07-0400 Diastolic blood pressure 84 mm[Hg] Marisol Andrea MD Work Phone (unformatted): [id number] [facility] [employer] 07-02-2022 14:07-0400 Heart rate 101 /min Marisol Andrea MD Work Phone (unformatted): [id number] [facility] [employer] 07-02-2022 14:07-0400 Respiratory rate 18 /min Marisol Andrea MD Work Phone (unformatted): [id number] [facility] [employer] 07-02-2022 14:07-0400 SaO2% (BldA) [Mass fraction] 96 % Marisol Andrea MD Work Phone (unformatted): [id number] [facility] [employer] 07-02-2022 14:07-0400 Systolic blood pressure 123 mm[Hg] Marisol Andrea MD Work Phone (unformatted): [id number] [facility] [employer] 06-21-2022 06:35-0400 Body temperature 97.5 [degF] Mick Martin MD Work Phone: [facility] [employer] 06-21-2022 06:35-0400 Diastolic blood pressure 74 mm[Hg] Mick Martin MD Work Phone: [facility] [employer] 06-21-2022 06:35-0400 Heart rate 91 /min Mick Martin MD Work Phone: [facility] [employer] 06-21-2022 06:35-0400 Respiratory rate 23 /min Mick Martin MD Work Phone: [facility] [employer] 06-21-2022 06:35-0400 SaO2% (BldA) [Mass fraction] 93 % Mick Martin MD Work Phone: [employer] 06-21-2022 06:35-0400 Systolic blood pressure 109 mm[Hg] Mick Martin MD Work Phone: [facility] [employer] 06-20-2022 05:41-0400 Body mass index (BMI) [Ratio] 24.9 kg/m2 Mick Martin MD Work Phone: [facility] [employer] 06-20-2022 05:41-0400 Body weight 85.6 kg Mick Martin MD Work Phone: [employer] 06-18-2022 06:00-0400 Body height 185.4 cm Mick Martin MD Work Phone: [employer] 05-08-2022 07:30-0400 Body temperature 98.6 [degF] Johann Rodriguez DO Work Phone: [employer] 05-08-2022 07:30-0400 Diastolic blood pressure 83 mm[Hg] Johann Rodriguez DO Work Phone: [employer] 05-08-2022 07:30-0400 Heart rate 104 /min Johann Rodriguez DO Work Phone: [employer] 05-08-2022 07:30-0400 Respiratory rate 16 /min Johann Rodriguez DO Work Phone: [employer] 05-08-2022 07:30-0400 SaO2% (BldA) [Mass fraction] 99 % Johann Rodriguez DO Work Phone: [employer] 05-08-2022 07:30-0400 Systolic blood pressure 116 mm[Hg] Johann Rodriguez DO Work Phone: [employer] 05-07-2022 05:05-0400 Body mass index (BMI) [Ratio] 21.45 kg/m2 Johann Rodriguez DO Work Phone: [employer] 05-07-2022 05:05-0400 Body weight 73.75 kg Johann Rodriguez DO Work Phone: [facility] [employer] 05-06-2022 04:45-0400 Body height 185.4 cm Johann Rodriguez DO Work Phone: [facility] [employer] 05-06-2022 02:30-0400 Diastolic blood pressure 85 mm[Hg] Mallika Jose DO Work Phone: [facility] [employer] 05-06-2022 02:30-0400 Heart rate 89 /min Malliak Garcia DO Work Phone: [facility] [employer] 05-06-2022 02:30-0400 Respiratory rate 16 /min Mallika Garcia DO Work Phone: [facility] [employer] 05-06-2022 02:30-0400 SaO2% (BldA) [Mass fraction] 97 % Mallika Garcia DO Work Phone: [facility] [employer] 05-06-2022 02:30-0400 Systolic blood pressure 116 mm[Hg] Mallika Garcia DO Work Phone: [facility] [employer] 05-05-2022 20:17-0400 Body height 185.4 cm Mallika Jose DO Work Phone: [facility] [employer] 05-05-2022 20:17-0400 Body mass index (BMI) [Ratio] 23.75 kg/m2 Mallika Garcia DO Work Phone: [facility] [employer] 05-05-2022 20:17-0400 Body temperature 99 [degF] Mallika Garcia DO Work Phone: [facility] [employer] 05-05-2022 20:17-0400 Body weight 81.65 kg Mallika Jose DO Work Phone: [facility] [employer] 01-30-2022 14:15-0400 Heart rate 113 /min Florencia Canela MD Work Phone: [employer] 01-30-2022 14:15-0400 Respiratory rate 24 /min Florencia Canela MD Work Phone: [employer] 01-30-2022 14:15-0400 SaO2% (BldA) [Mass fraction] 95 % Florencia Canela MD Work Phone: [employer] 01-30-2022 11:20-0400 Body temperature 98.2 [degF] Florencia Canela MD Work Phone: [employer] 01-30-2022 11:20-0400 Diastolic blood pressure 94 mm[Hg] Florencia Canela MD Work Phone: [employer] 01-30-2022 11:20-0400 Systolic blood pressure 142 mm[Hg] Florencia Canela MD Work Phone: [employer] 01-29-2022 12:19-0400 Body height 182.9 cm Florencia Canela MD Work Phone: [employer] 01-29-2022 06:00-0400 Body mass index (BMI) [Ratio] 23.68 kg/m2 Florencia Canela MD Work Phone: [employer] 01-29-2022 06:00-0400 Body weight 79.2 kg Florencia Canela MD Work Phone: [employer] 01-20-2022 20:17-0500 Diastolic blood pressure 80 mm[Hg] Nicholas Martinez MD Work Phone: [employer] 01-20-2022 20:17-0500 Heart rate 118 /min Nicholas Martinez MD Work Phone: [employer] 01-20-2022 20:17-0500 Respiratory rate 24 /min Nicholas Martinez MD Work Phone: [employer] 01-20-2022 20:17-0500 SaO2% (BldA) [Mass fraction] 98 % Nicholas Martinez MD Work Phone: [employer] 01-20-2022 20:17-0500 Systolic blood pressure 123 mm[Hg] Nicholas Martinez MD Work Phone: [employer] 01-20-2022 19:40-0500 Body temperature 99.5 [degF] Nicholas Martinez MD Work Phone: [employer] 01-20-2022 17:47-0500 Body mass index (BMI) [Ratio] 21.24 kg/m2 Nicholas Martinez MD Work Phone: [employer] 01-20-2022 17:47-0500 Body weight 73.03 kg Nicholas Martinez MD Work Phone: [employer] 01-10-2022 21:00-0500 Diastolic blood pressure 88 mm[Hg] Jessica Barrow MD Work Phone: [employer] 01-10-2022 21:00-0500 Heart rate 105 /min Jessica Barrow MD Work Phone: [employer] 01-10-2022 21:00-0500 Respiratory rate 17 /min Jessica Barrow MD Work Phone: [employer] 01-10-2022 21:00-0500 SaO2% (BldA) [Mass fraction] 95 % Jessica Barrow MD Work Phone: [employer] 01-10-2022 21:00-0500 Systolic blood pressure 151 mm[Hg] Jessica Barrow MD Work Phone: [employer] 01-10-2022 18:09-0500 Body temperature 99.7 [degF] Jessica Barrow MD Work Phone: [employer] 12-20-2021 13:54-0500 Heart rate 97 /min Palomo Drummond MD Work Phone: [employer] 12-20-2021 13:54-0500 SaO2% (BldA) [Mass fraction] 96 % Palomo Drummond MD Work Phone: [employer] 12-20-2021 07:32-0500 Body temperature 98.8 [degF] Palomo Drummond MD Work Phone: [employer] 12-20-2021 07:32-0500 Diastolic blood pressure 82 mm[Hg] Palomo Drummond MD Work Phone: [employer] 12-20-2021 07:32-0500 Respiratory rate 16 /min Palomo Drummond MD Work Phone: [employer] 12-20-2021 07:32-0500 Systolic blood pressure 112 mm[Hg] Palomo Drummond MD Work Phone: [employer] 12-19-2021 15:13-0500 Body height 185.4 cm Palomo Drummond MD Work Phone: [employer] 12-18-2021 02:57-0500 Body mass index (BMI) [Ratio] 22.72 kg/m2 Palomo Drummond MD Work Phone: [employer] 12-18-2021 02:57-0500 Body weight 78.11 kg Palomo Drummond MD Work Phone: [employer] 05-29-2021 17:42-0400 Diastolic blood pressure 84 mm[Hg] [employer] Phone: 05-29-2021 17:42-0400 Heart rate 83 /min [employer] Phone: 05-29-2021 17:42-0400 Respiratory rate 18 /min [employer] Phone: 05-29-2021 17:42-0400 SaO2% (BldA) [Mass fraction] 95 % [employer] Work Phone: 05-29-2021 17:42-0400 Systolic blood pressure 136 mm[Hg] [employer] Phone: 05-29-2021 11:47-0400 Body mass index (BMI) [Ratio] 24.94 kg/m2 [employer] Phone: 05-29-2021 11:47-0400 Body temperature 97.9 [degF] [employer] Work Phone: 05-29-2021 11:47-0400 Body weight 85.73 kg [facility] [employer] Work Phone: 12-16-2020 11:55-0500 Respiratory Rate 16 /min Jaida Bautista [place], [place] 12-16-2020 10:45-0500 Pulse Oximetry 95 % Jaida Fitzgerald [place], [place] 12-16-2020 10:41-0500 Pulse (Heart Rate) 99 /min Jaida Fitzgerald [place], [place] 12-16-2020 10:30-0500 BP Diastolic 88 mm[Hg] Jaida Fitzgerald [place], [place] 12-16-2020 10:30-0500 BP Systolic 136 mm[Hg] Jaida Fitzgerald [place], [place] 12-16-2020 09:36-0500 Respiratory rate 14 /min [place] 12-16-2020 06:38-0500 Body Temperature 98.8 [degF] Jaida Fitzgerald [place], [place] Encounters Encounter Date Encounter Type Care Provider Facility Start: 01-30-2024 End: 01-30-2024 Emergency department patient visit STU LISA [facility] Start: 01-30-2024 End: 01-30-2024 Emergency department patient visit Stu Lisa MD Work Phone: [facility] ED Comment on above: Influenza A (Primary Dx) Start: 11-12-2023 End: 11-12-2023 Emergency department patient visit ELI DUGAN [facility] Start: 10-18-2023 End: 10-18-2023 Emergency department patient visit FABRICIO LEMUS [facility] Start: 09-03-2023 End: 11-27-2023 ambulatory [facility] Start: 05-09-2023 End: 05-09-2023 Emergency department patient visit EDWARD PALMER [facility] Start: 05-03-2023 End: 05-04-2023 ambulatory JOSE RAFAEL AN [facility] Start: 04-16-2023 End: 04-16-2023 ambulatory JOSE RAFAEL AN [facility] Start: 12-25-2022 End: 12-26-2022 Emergency department patient visit EDWARD PALMER [facility] Start: 07-09-2022 End: 07-09-2022 Subsequent hospital visit by physician Marisol Andrea MD Work Phone (unformatted): [phone] [facility] Observation Comment on above: Arrived Start: 07-02-2022 End: 07-02-2022 Subsequent hospital visit by physician Marisol Andrea MD Work Phone (unformatted): [phone] [facility]ation Comment on above: Subacute right-sided infective endocarditis (Primary Dx) Start: 06-15-2022 End: 06-21-2022 Evaluation and management of inpatient Mick Martin MD Work Phone: [id number] Stepdown Comment on above: Lower respiratory in fection (Primary Dx); 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, unspecified whether septic shock present (HCC); Subacute viral endocarditis; Endocarditis of tricuspid valve Start: 06-13-2022 End: 06-14-2022 ambulatory [facility] Start: 06-13-2022 End: 06-13-2022 Subsequent hospital visit by physician [facility] Start: 05-17-2022 End: 05-18-2022 ambulatory [facility] Start: 05-17-2022 End: 05-17-2022 Subsequent hospital visit by physician [facility] Start: 05-06-2022 End: 05-08-2022 Evaluation and management of inpatient Johann Rodriguez DO Work Phone: [facility] Ortho/Med Surg Start: 05-05-2022 End: 05-06-2022 Emergency department patient visit [facility] Start: 05-05-2022 End: 05-06-2022 Emergency department patient visit Mallikabilly Garcia DO Work Phone: [facility] ED Comment on above: Acute osteomyelitis of left calcaneus (HCC) (Primary Dx); Leukocytosis, unspecified type Start: 02-14-2022 End: 02-16-2022 Subsequent hospital visit by physician [address] Rm 2 [facility] CT Scan Comment on above: Septic embolism (HCC ) Acute bacterial endo carditis Start: 01-20-2022 End: 01-30-2022 Evaluation and management of inpatient Florencia Canela MD Work Phone: [employer] [facility] Comment on above: Post-operative pain (Primary Dx); MRSA bacteremia; Moderate tricuspid regurgitation; Acute osteomyelitis of left calcaneus (HCC); Endocarditis of tricuspid valve; Septic embolism (HCC) Start: 01-20-2022 End: 01-20-2022 Emergency department patient visit [facility] Start: 01-20-2022 End: 01-20-2022 Emergency department patient visit Nicholas Martinez MD Work Phone: [facility] ED Comment on above: Subacute endocarditi s due to other organism (Primary Dx); Abnormal chest x-ray; Sinus tachycardia Start: 01-10-2022 End: 01-10-2022 Emergency department patient visit [facility] Start: 01-10-2022 End: 01-10-2022 Emergency department patient visit Jessica Barrow MD Work Phone: [facility] ED Comment on above: Accidental overdose of heroin, initial encounter (HCC) (Primary Dx) Start: 01-06-2022 End: 01-06-2022 Subsequent hospital visit by physician Froylan Allred DO Work Phone: [employer] [facility] Med Surg Comment on above: 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) Start: 12-13-2021 End: 12-20-2021 Evaluation and management of inpatient Palomo Drummond MD Work Phone: [facility]Med Surg Comment on above: Acute bacterial endo carditis (Primary Dx); Septic embolism (HCC); Heroin abuse (HCC); MRSA bacteremia; Endocarditis of tricuspid valve; Chronic hepatitis C without hepatic coma (HCC) Start: 12-11-2021 End: 12-13-2021 Evaluation and management of inpatient DR EMY REBOLLEDO Facility:[facility]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 End: 01-10-2022 Drug screen multi urine Drug screen multi urine Lab Routine One Time for 1 Occurrences starting 01/10/2022 until 01/10/2022 [employer] Phone: Comment on above: One Time for 1 Occurrences starting 0 12/2021 until 01/10/2022 EKG 12 Lead [employer] [place] End: 01-31-2022 EKG 12 Lead EKG 12 Lead ECG Routine Tomorrow AM for 1 Occurrences starting 01/31/2022 until 01/31/2022 [employer] Phone: Comment on above: Tomorrow AM for 1 Occurrences starting 0 01/31/2022 until 01/31/2022 EKG 12 Lead EKG 12 Lead ECG Routine 01/30/2022 8:47 AM EDT [employer] Phone: End: 03-02-2022 Hepatic function 1999 panel - Serum or Plasma Hepatic Function Panel Lab Routine 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 - for 16 Occurrences starting 01/30/2022 until 03/02/2022 [employer] Phone: Comment on above: 3 x per week - for 16 Occurrences starti ng 01/30/2022 until 03/02/2022 End: 06-19-2023 Hepatic function 2000 panel - Serum or Plasma Hepatic Function Panel Lab Routine 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, 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 for 6 Occurrences starting 06/19/2022 until 06/19/2023 [facility] [employer] Phone: Comment on above: weekly for 6 Occurrences starting 2021 until 06/19/2023 End: 01-10-2022 Hepatitis B Surface Antigen [employer] Phone: Comment on above: One Time for 1 Occurrences starting 030 12/2021 until 01/10/2022 End: 01-10-2022 Hepatitis C Antibody [employer] Phone: Comment on above: One Time for 1 Occurrences starting 03/0 12/2021 until 01/10/2022 End: 06-19-2022 Initiate RT Protocol Initiate RT Protocol Respiratory Care Routine Continuous until discontinued starting 06/19/2022 [employer] Phone: Comment on above: Continuous until discontinued starting 0 06/19/2022 Intermittent pulse oximetry Pulse Oximetry Spot Check Respiratory Care Routine As Needed until discontinued starting 12/13/2021 [employer] Phone: Comment on above: As Needed until discontinued starting Intermittent pulse oximetry Pulse Oximetry Spot Check Respiratory Care Routine As Needed until discontinued starting 01/20/2022 [employer] Phone: Comment on above: As Needed until discontinued starting Intermittent pulse oximetry Pulse Oximetry Spot Check Respiratory Care Routine Daily until discontinued starting 06/15/2022 [employer] Phone: Comment on above: Daily until discontinued starting 2021 Nasal Cannula Oxygen Nasal Cannu la Oxygen Respiratory Care Routine Daily until discontinued starting 06/15/2022 [employer] Phone: Comment on above: Daily until discontinued starting 2021 Oxygen therapy [[employer] Data Set] Initiate Oxygen Therapy Protocol Respiratory Care Routine Daily until discontinued starting 12/13/2021 [employer] Phone: Comment on above: Daily until discontinued starting 2021 Oxygen therapy [[employer] Data Set] Initiate Oxygen Therapy Protocol Respiratory Care Routine As Needed until discontinued starting 01/20/2022 [employer] Phone: Comment on above: As Needed until discontinued starting Oxygen therapy [[employer] Data Set] Initiate Oxygen Therapy Protocol Respiratory Care Routine As Needed until discontinued starting 05/06/2022 [employer] Phone: Comment on above: As Needed until discontinued starting Oxygen therapy [[employer] Data Set] Initiate Oxygen Therapy Protocol Respiratory Care Routine As Needed until discontinued starting 06/15/2022 [employer] Phone: Comment on above: As Needed until discontinued starting Oxygen therapy [[facility] Data Set] Initiate Oxygen Therapy Protocol Respiratory Care Routine As Needed until discontinued starting 06/16/2022 [employer] Phone: Comment on above: As Needed until discontinued starting End: 12-13-2021 PREVIOUS SPECIMEN [employer] Phone: Comment on above: Once for 1 Occurrences starting 12/13/19 until 12/13/2021 Respiratory care evaluation only Respiratory care evaluation only Respiratory Care Routine As Needed until discontinued starting 06/19/2022 [employer] Phone: Comment on above: As Needed until discontinued starting Surgical Pathology Surgical Path ology Lab Routine Release Upon Ordering for 1 Occurrences starting 01/26/2022 [employer] Phone: Comment on above: Release Upon Ordering for 1 Occurrences starting 01/26/2022 End: 01-10-2022 Urinalysis Urinalysis Lab Routine One Time for 1 Occurrences starting 01/10/2022 until 01/10/2022 [employer] Phone: Comment on above: One Time for 1 Occurrences starting 12/2021 until 01/10/2022 End: 12-21-2021 VANCOMYCIN, RANDOM VANCOMYCIN, RANDOM Lab Routine One Time for 1 Occurrences starting 12/21/2021 until 12/21/2021 [employer] Phone: Comment on above: One Time for 1 Occurrences starting 12/12 until 12/21/2021 End: 05-06-2022 Wound Culture Wound Culture Microbiology Routine One Time for 1 Occurrences starting 05/06/2022 until 05/06/2022 [employer] Phone: Comment on above: One Time for 1 Occurrences starting 04/12 until 05/06/2022 End: 05-06-2022 Wound Gram stain Wound Gram stain Microbiology Routine One Time for 1 Occurrences starting 05/06/2022 until 05/06/2022 [facility] Work Phone: Comment on above: One Time for 1 Occurrences starting 04/12 until 05/06/2022 Payers Date Payer Category Payer Unknown [id number] [id number] 1980 Unknown [id number] 2.16.84 [id number] 1982 Unknown [id number] 2.16.8 [id number] 1982 Unknown [id number] 2.16.8 [id number] 1982 Unknown [id number] 2.16.8 [id number] 1982 Unknown [id number] 2.16.8 [id number] 1982 Unknown [id number] 2.16.8 [id number] 1982 Unknown [id number] 2.16.8 [id number] 1982 Unknown [id number] 2.16. [id number] 1982 Unknown [id number] 2.16.8 [id number] 1982 Unknown [id number] 2.16.8 [id number] 1957 Medicaid [id number] Social History Date Type Detail Facility Start: 12-16-2020 End: 09-05-2022 Tobacco smoking status [facility] Former smoker [place], [place] Start: 12-16-2020 End: 09-05-2022 [facility] use and exposure [facility]: 12-16-2020 End: 01-30-2024 Alcohol intake Current non-drinker of alcohol (finding) [place] Start: 1980 [facility] At [facility] Start: 12-21-2021 End: 06-15-2022 Exposure to SARS-CoV-2 (event) Not sure [place] History of tobacco use Current smoker [facility] [employer] Work Phone: Start: 11-12-2023 History of Social function [facility] Start: 11-12-2023 Tobacco use panel [facility] Clinical Notes 05-29-2021 to 01-30-2024 Discharge InstructionsAttachIsauro Granger RN - 06/21/2022 4:36 PM EDConnie Granger RN - 06/21/2022 4:11 PM EDViki Perez MD - 06/21/2022 11:24 AM EDTDischarge Instr - Activity Note Date & Type Note Facility 01-30-2024 Hospital Discharge instructions Falguni Wan APRN - CNP - 01/30/2024 6:12 PM EDT Call [phone] ([phone]) to establish care for follow up. You can also call [facility] Link at [phone] to establish care. The following attachments cannot be sent through Care Everywhere.Influenza (Tristanian)documented in this encounter [facility] 04-16-2023 Note Attestation signed by Jose Rafael An MD at 04/17/2023 11:18 AM Seen and discussed with fellow, agree with assessment and plan. [facility] Gastroenterology New Patient Visit - History & Physical CHIEF COMPLAINT Chief Complaint Patient presents with New Patient Hepatitis C Hepatitis B HISTORY OF PRESENT ILLNESS: Tip Ansari is a 43 y.o. male with past medical history of IV drug use who presents for evaluation and management of hepatitis B and C. Patient has history of incarceration and IV drug abuse. He has been completely abstinent for about 1 year now. He had labs performed recently that revealed mildly elevated LFTs. Hep C PCR is positive. He knows he has had hep C since at least 2016, however has never been treated. He did not know he also had hep B until recently. Hep B PCR was not performed. HIV was negative. PREVIOUS LABS/IMAGING/ENDOSCOPY: HISTORY: Problem list: Patient Active Problem List Diagnosis Abscess of arm, left Achilles tendinitis of left lower extremity Acute hematogenous osteomyelitis of left ankle (CMS/HCC) Cellulitis of left lower extremity Tenosynovitis of left ankle Acute hypokalemia Acute osteomyelitis of left calcaneus ([facility]/HCC) Acute respiratory failure with hypoxia ([facility]/HCC) Acute septic pulmonary embolism without acute cor pulmonale ([facility]/HCC) Bloody diarrhea Elevated C-reactive protein (CRP) Elevated procalcitonin Endocarditis 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CMS/HCC) Chronic hepatitis C without hepatic coma (CMS/HCC) Hepatitis C virus infection without hepatic coma Heroin abuse (CMS/HCC) Hyperglycemia Hyperkalemia IVDU (intravenous drug user) Lower extremity edema Moderate protein-calorie malnutrition (CMS/HCC) Moderate tricuspid regurgitation MRSA bacteremia Normocytic normochromic anemia Opiate withdrawal (CMS/HCC) Sepsis ([facility]/HCC) Sepsis due to Nathaniel species without acute organ dysfunction ([facility]/HCC) Septic bursitis Septic embolism ([facility]/HCC) Sinus tachycardia SIRS (systemic inflammatory response syndrome) ([facility]/HCC) Staphylococcal arthritis of left ankle (CMS/HCC) 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CMS/HCC) Subacute right-sided infective endocarditis Past Medical History: History reviewed. No pertinent past medical history. Past Surgical History: History reviewed. No pertinent surgical history. FAMILY HISTORY: No family history on file. SOCIAL HISTORY: Social History Tobacco Use Smoking status: Former Types: Cigarettes Quit date: 2019 Years since quittin.4 Smokeless tobacco: Never Vaping Use Vaping Use: Never used Substance Use Topics Alcohol use: Never Drug use: Never ALLERGIES: Penicillins Current Medications: Current Outpatient Medications: Ventolin HFA 90 mcg/actuation inhaler, INHALE 2 PUFFS BY MOUTH 4 TIMES DAILY, Disp: , Rfl: amoxicillin (Amoxil) 875 mg tablet, Take 875 mg by mouth in the morning and at bedtime., Disp: , Rfl: benzonatate (Tessalon) 100 mg capsule, Take 100-200 mg by mouth., Disp: , Rfl: benzonatate (Tessalon) 100 mg capsule, , Disp: , Rfl: buprenorphine-naloxone (Suboxone) 8-2 mg SL film, , Disp: , Rfl: buprenorphine-naloxone (Suboxone) 8-2 mg SL film, , Disp: , Rfl: dalbavancin (Dalvance) 500 mg injection, Infuse 1,000 mg into a venous catheter., Disp: , Rfl: fluconazole (Diflucan) 100 mg tablet, , Disp: , Rfl: ibuprofen 800 mg tablet, Take 800 mg by mouth., Disp: , Rfl: naloxone (Narcan) 4 mg/0.1 mL nasal spray, , Disp: , Rfl: predniSONE (Deltasone) 20 mg tablet, Take 20 mg by mouth in the morning and at bedtime., Disp: , Rfl: Sublocade 100 mg/0.5 mL injection, , Disp: , Rfl: Sublocade 300 mg/1.5 mL injection, , Disp: , Rfl: I reviewed and reconciled this patient's medication list today. The list included in this note is the most up to date list that I can attest to at this time based on the information that the patient has provided me and the electronic medical record. REVIEW OF SYSTEMS: See HPI, otherwise ROS as below CONSTITUTIONAL: negative HEENT: negative RESPIRATORY: negative CARDIOVASCULAR: negative GASTROINTESTINAL: As in HPI GENITOURINARY: negative INTEGUMENT/BREAST: negative MUSCULOSKELETAL: negative NEUROLOGICAL: negative BEHAVIOR/PSYCH: negative PHYSICAL EXAM: Vitals: 04/16/23 1545 BP: 125/81 BP Location: Left arm Patient Position: Sitting BP Cuff Size: Adult Pulse: 95 Weight: 82.6 kg (182 lb) Height: 1.854 m (6' 1 ) Body mass index is 24.01 kg/m???. CONSTITUTIONAL: awake, alert and no apparent distress EYES: pupils equal, round and reactive to light; conjunctiva pink and normal appearing ENT: oral pharynx with moist mucus membranes HEMATOLOGIC/LYMPHATICS: no cervical lymphadenopathy and no supraclavic (more content not included)... [facility] 06-21-2022 History of Present illness Narrative Discharged via ambulation with literary writer to front door. Patient's aunt picking patient up. Patient left with belongings and dc instructions. Meds with patient at dc. Patient up in room and in bed at intervals. States his aunt will pick him up. Images from the original note were not included. [facility] Office: [phone] Mikie Rodriguez DO, Theo Lerma DO, Stuart Natarajan DO, Harpal Tran DO, Prashanth Sadler MD, Deana Raza MD, Florencia Canela MD, Tess Ford MD, Leodan Mak MD, Marimar Ren MD, Kyle Broussard DO, Juan Driver MD, Sophia Agusitn DO, Jodi Bain MD, Palomo Drummond MD, Johann Rodriguez DO, Elvia Torres MD, Alberto Perez MD, Yuliana Saenz MD, Fabricio Syed DO, Radha Avila MD, Lyle Woods MD, Teresa Quintero CNP, Leslie Rao CNP, Ro Bernard CNP, Carter Charles, PABLO, Mckayla Abraham PA-C, Eli Fu, FÉLIX, Keri Walker, PABLO, Sherrie Rea, PABLO, Deysi Pablo, PABLO, Shelli Menon, MARINE EQUIPMENT SALES ENGINEER, Tika Hernandez, MARINE EQUIPMENT SALES ENGINEER, Cathleen Moran, HAIR BLENDER, Razia Figueroa, FÉLIX, Madalyn Julien, PABLO, Amie Richardson, PABLO, Mary Meléndez, PABLO [facility] IN-PATIENT SERVICE [facility] Progress Note 06/21/2022 11:24 AM Name: Tip Ansari Acct: [id number] Room: [address] [place] [address] Day: 6 Admit Date: 06/15/2022 4:29 PM PCP: No primary care provider on file. Code Status: Full Code Subjective: C/C: Chief Complaint Patient presents with Illness Chills Chest Pain Interval History Status: slightly worse Alert and oriented Not complaining of any pain or discomfort Is obviously anxious about current condition... Brief History: Tip Ansari is a 42 y.o.-year-old mal past hx of drug use and Left calcaneal osteomyelitis, septic bursitis left heel w I/D 01/26/22. Prior candidemia with C albicans 01/21/22 TV endocarditis [facility]IAN[facility]CO 01/24/22 treated w fluconazole Septic pulm emboli from MRSA septicemia 12/13/21 allergy to vanco w recurrent serotonin syndrome.Was planned for a repeat CT chest 03/05 but went to [facility]dc due to a IVDU relapse 05/06/22 Review of Systems: Constitutional: negative for chills, fevers, sweats +fatigue Respiratory: negative for cough, dyspnea on exertion, shortness of breath, wheezing Cardiovascular: negative for chest pain, chest pressure/discomfort, lower extremity edema, palpitations Gastrointestinal: negative for abdominal pain, constipation, diarrhea, nausea, vomiting Neurological: negative for dizziness, headache Medications: Allergies: Allergies Allergen Reactions Pcn [Penicillins] Anaphylaxis Tolerated amoxicillin and tolerated zosyn Vancomycin Other (See Comments) Fever and hives chest - despite very slow infusion Current Meds: Scheduled Meds: fluconazole 400 mg Oral Daily vancomycin 1,250 mg IntraVENous Q12H diphenhydrAMINE 12.5 mg Oral BID vancomycin (VANCOCIN) intermittent dosing (placeholder) Other RX Placeholder enoxaparin 40 mg SubCUTAneous Daily sodium chloride flush 5-40 mL IntraVENous 2 times per day Continuous Infusions: sodium chloride sodium chloride PRN Meds: albuterol, sodium chloride flush, sodium chloride, acetaminophen OR acetaminophen, sodium chloride flush, sodium chloride Data: Past Medical History: has a past medical history of Abscess, Chronic hepatitis C without hepatic coma (HCC), COPD (chronic obstructive pulmonary disease) (HCC), Depression, and Drug addiction (HCC). Social History: reports that he has quit smoking. He has never used smokeless tobacco. He reports current drug use. Drugs: Cocaine, Opiates , Marijuana ([place]), and Methamphetamines (Crystal Meth). He reports that he does not drink alcohol. Family History: Family History Problem Relation Age of Onset Cancer Mother skin No Known Problems Father Diabetes Maternal Grandmother Diabetes Maternal Grandfather Vitals: BP 109/74 Pulse 91 Temp 97.5 F (36.4 C) (Temporal) Resp 23 Ht 6' 1 (1.854 m) Wt 188 lb 11.4 oz (85.6 kg) SpO2 93% BMI 24.90 kg/m Temp (24hrs), Av.2 F (36.8 C), Min:97.5 F (36.4 C), Max:98.9 F (37.2 C) No results for input(s): POCGLU in the last 72 hours. I/O (24Hr): Intake/Output Summary (Last 24 hours) at 06/21/2022 1124 Last data filed at 06/20/2022 2017 Gross per 24 hour Intake 970 ml Output -- Net 970 ml Labs: Hematology: Recent Labs 06/20/22 0406 06/21/22 0623 WBC 8.9 8.6 RBC 4.22 4.28 HGB 11.8* 12.3* HCT 35.2* 35.7* MCV 83.4 83.4 MCH 28.0 28.7 MCHC 33.5 34.5 RDW 18.0* 17.9* PLT 187 174 MPV 8.9 9.1 Chemistry: Recent Labs 06/19/22 1013 06/20/22 0406 06/21/22 0623 NA 141 141 138 K 3.6* 4.1 3.9 CL 105 106 104 CO2 25 27 24 GLUCOSE 142* 99 85 BUN 11 13 13 CREATININE 0.70 0.75 0.68* ANIONGAP 11 8* 10 LABGLOM >60 >60 >60 GFRAA >60 >60 >60 CALCIUM 9.0 9.1 9.2 PHOS 3.3 -- -- Recent Labs 06/19/22 1013 LABALBU 3.3* ABG: Lab Results Component Value Date/Time PHART 7.380 12/16/2020 09:20 AM MDW5OFO 44.5 12/16/2020 09:20 AM PO2ART 94.4 12/16/2020 09:20 AM SYP9KMT 25.7 12/16/2020 09:20 AM NBEA NOT REPORTED 12/16/2020 09:20 AM PBEA 0.3 12/16/2020 09:20 AM I2OQEIOX 97.1 12/16/2020 09:20 AM FIO2 28 12/16/2020 09:20 AM Lab Results Component Value Date/Time SPECIAL RT FOREARM 3ML 06/15/2022 05:55 PM Lab Results Component Value Date/Time CULTURE NORMAL RESPIRATORY CHRISTOPHER MODERATE GROWTH 06/16/2022 12:39 PM Radiology: XR CHEST (2 VW) Result Date: 06/15/2022 Increased opacity in the right infrahilar region compared other studies which could represent a small area of atelectasis, pneumonia or scarring in this area. Radiographic follow-up may be helpful. MRI CERVICAL SPINE W WO CONTRAST Result Date: 06/16/2022 No MRI evidence of discitis-osteomyelitis or epidural abscess. Degenerative neural foraminal stenosis at C6-C7, on the left hand side. MRI LUMBAR SPINE W WO CONTRAST Result Date: 06/16/2022 No MRI evidence of discitis-osteomyelitis or epidural abscess. 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 CT CHEST PULMONARY EMBOLISM W CONTRAST Addendum Date: 06/15/2022 ADDENDUM: There is mediastinal lymphadenopathy best visualized in subcarinal location which are likely reactive to abnormalities within the lungs. Result Date: 06/15/2022 No evidence of pulmonary embolism. There are multiple nodules left upper lobe with the largest one measuring 19 mm. These lesions are associated with surrounding ground glass density. Similar 16 mm nodule is noted within the superior segment of the right lower lobe and 12 and 11 mm nodules are noted within the right upper lobe.. Although the pattern of these lesions are most likely infectious/inflammatory in etiology, no characteristic cavitation of septic pulmonary emboli are noted Linear consolidative changes of bilateral lower lobes. The findings are most likely due to atelectasis. Physical Examination: General appearance: alert, cooperative and no distress Mental Status: oriented to person, place and time and normal affect Lungs: clear to auscultation bilaterally, normal effort Heart: regular rate and rhythm, no murmur Abdomen: soft, nontender, nondistended, normal bowel sounds, no masses, hepatomegaly, splenomegaly Extremities: no edema, redness, tenderness in the calves Skin: no gross lesions, rashes, induration Assessment: Hospital Problems Last Modified POA Sepsis due to Nathaniel species without acute organ dysfunction ([facility]) 06/17/2022 Yes IVDU (intravenous drug user) 06/21/2022 Yes SIRS (systemic inflammatory response syndrome) ([facility]) 06/20/2022 Yes Acute septic pulmonary embolism without acute cor pulmonale ([facility]) 06/20/2022 Yes Elevated procalcitonin 06/20/2022 Yes CRP elevated 06/20/2022 Yes Septic embolism ([facility]) 06/17/2022 Yes Normocytic normochromic anemia 06/17/2022 Yes Subacute right-sided infective endocarditis 06/17/2022 Yes 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[facility]) 06/20/2022 Yes Plan: 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 Infectious disease following. Not candidate for valvular repair IVDA: pt without evidence of withdrawal, has been on suboxone in past, but this cannot be administered in current fdc Normocytic normochromic anemia : monitor hgb, transfuse as need for symptomatic anemia or hgb <7 COPD not in acute exacerbation : nebulizer prn PTOT Diet as tolerated Labs, imaging, ECG reviewed PTOT Based on ID note from today patient okay to discharge on fluconazole and dalbavancin which can be administered at infusion center Should follow-up with ID and cardiothoracic surgery within the next several weeks -instructions and information and follow-up DC order in place, pt needs assisted information Cannot go to SNF as he does not qualify Alberto Perez MD 06/21/2022 11:24 AM CLINICAL PHARMACY NOTE: MEDS TO BEDS Total # of Prescriptions Filled: 1 The following medications were delivered to the patient: fluconazole Additional Documentation: Discharge instructions given to patient. Patient instructed to call outpatient pharmacy in AM to set up plan to get Diflucan. Patient agrees. Aquatics Instructor attempted to contact outpatient pharmacy at 1800 but they were closed. Images from the original note were not included. [facility] Office: [phone] Mikie Rodriguez DO, Theo Lerma DO, Stuart Natarajan DO, Harpal Tran DO, Prashanth Sadler MD, Deana Raza MD, Florencia Canela MD, Tess Ford MD, Leodan Mak MD, Marimar Ren MD, Kyle Broussard DO, Juan Driver MD, Sophia Agustin DO, Jodi Bain MD, Palomo Drummond MD, Johann Rodriguez DO, Elvia Torres MD, Alberto Perez MD, Yuliana Saenz MD, Fabricio Syed DO, Radha Avila MD, Lyle Woods MD, Teresa Quintero CNP, Leslie Rao CNP, Ro Bernard CNP, Carter Charles CNP, Mckayla Abraham PA-C, Eli Fu DNP, Keri Walker MARINE EQUIPMENT SALES ENGINEER, Sherrie Rea MARINE EQUIPMENT SALES ENGINEER, Deysi Pablo, MARINE EQUIPMENT SALES ENGINEER, Shelli Menon MARINE EQUIPMENT SALES ENGINEER, Tika Hernandez, MARINE EQUIPMENT SALES ENGINEER, Cathleen Moran, HAIR BLENDER, Razia Figueroa DNP, Madalyn Julien, MARINE EQUIPMENT SALES ENGINEER, Amie Richardson, MARINE EQUIPMENT SALES ENGINEER, Mary Meléndez, MARINE EQUIPMENT SALES ENGINEER [facility] IN-PATIENT SERVICE [facility] Progress Note 06/20/2022 10:46 AM Name: Tip Ansari Acct: [id number] Room: [facility]0430-01 Day: 5 Admit Date: 06/15/2022 4:29 PM PCP: No primary care provider on file. Code Status: Full Code Subjective: C/C: Chief Complaint Patient presents with Illness Chills Chest Pain Interval History Status: slightly worse Alert and oriented Not complaining of any pain or discomfort Is obviously anxious about current condition... Brief History: Tip Ansari is a 42 y.o.-year-old mal past hx of drug use and Left calcaneal osteomyelitis, septic bursitis left heel w I/D 01/26/22. Prior candidemia with C albicans 01/21/22 TV endocarditis GIANFRANCO 01/24/22 treated w fluconazole Septic pulm emboli from MRSA septicemia 12/13/21 allergy to vanco w recurrent serotonin syndrome.Was planned for a repeat CT chest 03/05 but went to fdc due to a IVDU relapse 05/06/22 Review of Systems: Constitutional: negative for chills, fevers, sweats +fatigue Respiratory: negative for cough, dyspnea on exertion, shortness of breath, wheezing Cardiovascular: negative for chest pain, chest pressure/discomfort, lower extremity edema, palpitations Gastrointestinal: negative for abdominal pain, constipation, diarrhea, nausea, vomiting Neurological: negative for dizziness, headache Medications: Allergies: Allergies Allergen Reactions Pcn [Penicillins] Anaphylaxis Tolerated amoxicillin and tolerated zosyn Vancomycin Other (See Comments) Fever and hives chest - despite very slow infusion Current Meds: Scheduled Meds: fluconazole 400 mg Oral Daily vancomycin 1,250 mg IntraVENous Q12H diphenhydrAMINE 12.5 mg Oral BID vancomycin (VANCOCIN) intermittent dosing (placeholder) Other RX Placeholder enoxaparin 40 mg SubCUTAneous Daily sodium chloride flush 5-40 mL IntraVENous 2 times per day Continuous Infusions: sodium chloride sodium chloride PRN Meds: albuterol, sodium chloride flush, sodium chloride, acetaminophen OR acetaminophen, sodium chloride flush, sodium chloride Data: Past Medical History: has a past medical history of Abscess, Chronic hepatitis C without hepatic coma (HCC), COPD (chronic obstructive pulmonary disease) (HCC), Depression, and Drug addiction ([facility]). Social History: reports that he has quit smoking. He has never used smokeless tobacco. He reports current drug use. Drugs: Cocaine, Opiates , Marijuana ([place]), and Methamphetamines (Crystal Meth). He reports that he does not drink alcohol. Family History: Family History Problem Relation Age of Onset Cancer Mother skin No Known Problems Father Diabetes Maternal Grandmother Diabetes Maternal Grandfather Vitals: BP 107/77 Pulse 84 Temp 97.9 F (36.6 C) (Temporal) Resp 19 Ht 6' 1 (1.854 m) Wt 188 lb 11.4 oz (85.6 kg) SpO2 90% BMI 24.90 kg/m Temp (24hrs), Av.3 F (36.8 C), Min:97.6 F (36.4 C), Max:98.8 F (37.1 C) No results for input(s): POCGLU in the last 72 hours. I/O (24Hr): No intake or output data in the 24 hours ending 06/20/22 1046 Labs: Hematology: Recent Labs 06/20/22 0406 WBC 8.9 RBC 4.22 HGB 11.8* HCT 35.2* MCV 83.4 MCH 28.0 MCHC 33.5 RDW 18.0* PLT 187 MPV 8.9 Chemistry: Recent Labs 06/19/22 1013 06/20/22 0406 NA 141 141 K 3.6* 4.1 CL 105 106 CO2 25 27 GLUCOSE 142* 99 BUN 11 13 CREATININE 0.70 0.75 ANIONGAP 11 8* LABGLOM >60 >60 GFRAA >60 >60 CALCIUM 9.0 9.1 PHOS 3.3 -- Recent Labs 06/19/22 1013 LABALBU 3.3* ABG: Lab Results Component Value Date/Time PHART 7.380 12/16/2020 09:20 AM [id number] 44.5 12/16/2020 09:20 AM PO2ART 94.4 12/16/2020 09:20 AM EEG8MBE 25.7 12/16/2020 09:20 AM NBEA NOT REPORTED 12/16/2020 09:20 AM PBEA 0.3 12/16/2020 09:20 AM G8HSVKNV 97.1 12/16/2020 09:20 AM FIO2 28 12/16/2020 09:20 AM Lab Results Component Value Date/Time SPECIAL RT FOREARM 3ML 06/15/2022 05:55 PM Lab Results Component Value Date/Time CULTURE NORMAL RESPIRATORY CHRISTOPHER MODERATE GROWTH 06/16/2022 12:39 PM Radiology: XR CHEST (2 VW) Result Date: 06/15/2022 Increased opacity in the right infrahilar region compared other studies which could represent a small area of atelectasis, pneumonia or scarring in this area. Radiographic follow-up may be helpful. MRI CERVICAL SPINE W WO CONTRAST Result Date: 06/16/2022 No MRI evidence of discitis-osteomyelitis or epidural abscess. Degenerative neural foraminal stenosis at C6-C7, on the left hand side. MRI LUMBAR SPINE W WO CONTRAST Result Date: 06/16/2022 No MRI evidence of discitis-osteomyelitis or epidural abscess. 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 CT CHEST PULMONARY EMBOLISM W CONTRAST Addendum Date: 06/15/2022 ADDENDUM: There is mediastinal lymphadenopathy best visualized in subcarinal location which are likely reactive to abnormalities within the lungs. Result Date: 06/15/2022 No evidence of pulmonary embolism. There are multiple nodules left upper lobe with the largest one measuring 19 mm. These lesions are associated with surrounding ground glass density. Similar 16 mm nodule is noted within the superior segment of the right lower lobe and 12 and 11 mm nodules are noted within the right upper lobe.. Although the pattern of these lesions are most likely infectious/inflammatory in etiology, no characteristic cavitation of septic pulmonary emboli are noted Linear consolidative changes of bilateral lower lobes. The findings are most likely due to atelectasis. Physical Examination: General appearance: alert, cooperative and no distress Mental Status: oriented to person, place and time and normal affect Lungs: clear to auscultation bilaterally, normal effort Heart: regular rate and rhythm, no murmur Abdomen: soft, nontender, nondistended, normal bowel sounds, no masses, hepatomegaly, splenomegaly Extremities: no edema, redness, tenderness in the calves Skin: no gross lesions, rashes, induration Assessment: Hospital Problems Last Modified POA Sepsis due to Nathaniel species without acute organ dysfunction (HCC) 06/17/2022 Yes IVDU (intravenous drug user) 06/20/2022 Yes SIRS (systemic inflammatory response syndrome) ([facility]) 06/20/2022 Yes Acute septic pulmonary embolism without acute cor pulmonale (HCC) 06/20/2022 Yes Elevated procalcitonin 06/20/2022 Yes CRP elevated 06/20/2022 Yes Septic embolism (HCC) 06/17/2022 Yes Normocytic normochromic anemia 06/17/2022 Yes Subacute right-sided infective endocarditis 06/17/2022 Yes 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HCC) 06/20/2022 Yes Plan: 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 Infectious disease following. Not candidate for valvular repair IVDA: pt without evidence of withdrawal, has been on suboxone in past, but this cannot be administered in current fdc Normocytic normochromic anemia : monitor hgb, transfuse as need for symptomatic anemia or hgb <7 COPD not in acute exacerbation : nebulizer prn PTOT Diet as tolerated Labs, imaging, ECG reviewed PTOT Based on ID note from today patient okay to discharge on fluconazole and dalbavancin which can be administered at infusion center Should follow-up with ID and cardiothoracic surgery within the next several weeks -instructions and information and follow-up Alberto Perez MD 06/20/2022 10:46 AM Images from the original note were not included. [facility] Occupational Therapy Not Seen Note DATE: 06/20/2022 NAME: Tip Ansari : 1980 Patient not seen this date for Occupational Therapy due to: Patient Declined: Patient reports too tired and has not been able to get any sleep and is not doing therapy right now . Next Scheduled Treatment: Ck 06/21 Images from the original note were not included. [facility] - Infectious diseases evaluation Progress Note admission date 06/15/2022 reason for consultation: sepsis Impression : Current: Bilat septic pulm emboli Occasional hemoptysis Endocarditis TV, vegetation larger CRP procal elevation Chills and fever in fdc Relapsed drug use SIRS + tachycardia and clammy New LBP and neck pain, MRI spine neg Left calcaneal osteoarthritis Recently: Left calcaneal osteomyelitis, septic bursitis left heel w I/D 01/26/22. Candidemia with C albicans 01/21/22 TV endocarditis GIANFRANCO 01/24/22 treated w fluconazole Septic pulm emboli from MRSA septicemia 12/13/21 allergy to vanco w recurrent serotonin syndrome. Was planned for a repeat CT chest 03/05 but went to fdc Allergy to PNC as a child, but tolerates amox and zosyn Vancomycin allergy Discussion / summary of stay / plan of care Patient with previous Nathaniel albicans fungemia on 01/21/2022 and prior MRSA septicemia on 12/13/2021 He had evidence of pulmonary emboli from the infection on CT scan of 02/14/2022. Some of those lesions have disappeared on the current CT scan of 06/15/2022. However, new lesions are present in left upper lobe and right middle lobe. The above suggests that ongoing embolization to the lung is still present. The patient has a vegetation of the tricuspid valve on ECHO of 02/14/2022. A new echo on 06/15/2022 shows persistence of the vegetation on the tricuspid valve with increase in the size of the vegetation. Patient should be evaluated by the cardiovascular thoracic surgery service. He may be a candidate for suctioning of the vegetation. Recommendations Elevated CRP and procalcitonin Transthoracic echo 06/16-positive for tricuspid valve vegetations--size has increased BC 06/13 -06/15: No growth CTS deferring angioVAC of the vegetation. Keep vanco w benadryl 12.5 po 15 minutes before. and fluconazole x 6 weeks 06/16 MRI C-spine and L-spine not showing any evidence of infectious seeding. OK forDC on dalbavancin weekly x 2 doses at the infusion center as well as fluconazole mg po daily x [address] chest in 30 days to eval resolution of the lung lesions See me office in 2 -3 weeks w weekly LFT Unclear if he ll go back to fdc or will be released Infection Control Recommendations [place] Precautions Contact Isolation Antimicrobial Stewardship Recommendations Simplification of therapy Targeted therapy History of Present Illness: Initial history: Tip Ansari is a 42 y.o.-year-old male known to me for a past hx of drug use and Left calcaneal osteomyelitis, septic bursitis left heel w I/D 01/26/22. Prior candidemia with C albicans 01/21/22 TV endocarditis GIANFRANCO 01/24/22 treated w fluconazole Septic pulm emboli from MRSA septicemia 12/13/21 allergy to vanco w recurrent serotonin syndrome. Was planned for a repeat CT chest 03/05 but went to fdc due to a IVDU relapse 05/06/22 Called from fdc 06/15 for chills headaches getting worse and some LGF - sent to [facility] and seen now in ER - minimal cough and on off hemoptysis - but clammy tachycardic and looks ill - no SOB no chest pain Neck pain and headache x few weeks Lower back pain x [address] chest showed many new septic pulm emboli. WBc normal CRP procal pend BC pend Interval changes 06/20/2022 Patient Vitals for the past 8 hrs: BP Temp Temp src Pulse Resp SpO2 Weight 06/20/22 0657 107/77 97.9 F (36.6 C) Temporal 84 19 90 % -- 06/20/22 0541 -- -- -- -- -- -- 188 lb 11.4 oz (85.6 kg) 06/20/22 0402 108/72 98.8 F (37.1 C) Oral 94 22 92 % -- 06/20/22 0022 105/79 98.8 F (37.1 C) Oral 93 27 92 % -- CURRENT EVALUATION 06/20/2022 -no acute events overnight -Patient is anxious about his heart-states his heart rate going above 100 with movement. States he has family history of anxiety and panic attacks. Not depressed-no suicidal ideation. no chest pain, shortness of breath, palpitations or dizziness, or fever. -Normotensive satting 96% on room air. Pulse 84. Afebrile last 24 hours. -Had MRI of cervical lumbar spine 06/16 evaluate for seeding of abscess. Per MRI report no MRI evidence of discitis-osteomyelitis or epidural abscess... Degenerative neural foraminal stenosis at C6-C7, on the left-hand side... left-sided degenerative neural foraminal stenosis L3-L4. -06/16/2022 aspirated sputum growing mixed bacterial morphotypes on gram stain. -Culture showed normal respiratory christopher - No intervention planned form CTS team at this time Notable ID-related inpatient events: Transthoracic echo 06/16-positive for tricuspid valve vegetations-it was present in previous echo on 02/14/22-size has increased Procalcitonin 0.2, WBC 8.9, ESR and CRP raised Blood and urine culture are still negative -06/16/2022 aspirated sputum growing mixed bacterial morphotypes on gram stain. -Culture showed normal respiratory christopher Summary of relevant labs: Labs: W10- 8.9 Creat normal LFT normal CRP-16.4 ESR-35 Pro calcitonin -0.2 Micro: BC 06/15-negative BC /-negative Urine culture 06/16 - negative -06/16/2022 aspirated sputum growing mixed bacterial morphotypes on gram stain. -Culture showed normal respiratory christopher Imaging: Transthoracic echo 06/16-positive for tricuspid valve vegetations-it was present in previous echo on 02/14/22-size has increased CT chest 06/15 -personal review: multifocal new septic emboli I have personally reviewed the past medical history, past surgical history, medications, social history, and family history, and I haveupdated the database accordingly. Allergies: Pcn [penicillins] and Vancomycin Review of Systems: Review of Systems Constitutional: Positive for fatigue. Negative for activity change and chills. HENT: Negative for congestion. Eyes: Negative for photophobia and discharge. Respiratory: Negative for apnea. Cardiovascular: Concerned about heart rate going above 100 with movement Gastrointestinal: Negative for abdominal distention. Endocrine: Negative for cold intolerance and polyphagia. Genitourinary: Negative for dysuria. Musculoskeletal: Positive for back pain and neck pain. Negative for arthralgias. Skin: Negative for color change. Neurological: Positive for weakness. Negative for dizziness. Hematological: Negative for adenopathy. Psychiatric/Behavioral: Negative for agitation. Physical Examination : Physical Exam Constitutional: Appearance: Normal appearance. He is not ill-appearing. HENT: Head: Normocephalic and atraumatic. Nose: Nose normal. Mouth/Throat: Mouth: Mucous membranes are moist. Eyes: General: No scleral icterus. Conjunctiva/sclera: Conjunctivae normal. Cardiovascular: Rate and Rhythm: Regular rhythm. Tachycardia present. Heart sounds: Normal heart sounds. No murmur heard. Pulmonary: Effort: No respiratory distress. Breath sounds: Normal breath sounds. No stridor. No wheezing. Abdominal: General: There is no distension. Palpations: There is no mass. Tenderness: There is no abdominal tenderness. Hernia: No hernia is present. Genitourinary: Comments: No ortiz Musculoskeletal: General: No swelling or deformity. Cervical back: Neck supple. No rigidity. Skin: Coloration: Skin is not jaundiced. Findings: No bruising. Neurological: General: No focal deficit present. Mental Status: He is alert and oriented to person, place, and time. Psychiatric: Mood and Affect: Mood normal. Thought Content: Thought content normal. Past Medical History: Past Medical History: Diagnosis Date Abscess 2020 left arm + MRSA Chronic hepatitis C without hepatic coma (HCC) COPD (chronic obstructive pulmonary disease) (HCC) Depression Drug addiction (HCC) heroin Past Surgical History: Past Surgical History: Procedure Laterality Date ABSCESS DRAINAGE Left 2019 arm APPENDECTOMY FINGER SURGERY Right 5 th finger tendon repair FOOT DEBRIDEMENT Left 01/26/2022 INCISION AND DRAINAGE, BONE LEFT CALCANEOUS performed by Tip Grewal DPM at [facility] OR FOOT SURGERY Left 01/26/2022 INCISION AND DRAINAGE, BONE LEFT CALCANEOUS (Left Foot) PICC INSERTION VASCULAR ACCESS TEAM 01/25/2022 TYMPANOSTOMY TUBE PLACEMENT Bilateral Medications: fluconazole 400 mg Oral Daily vancomycin 1,250 mg IntraVENous Q12H diphenhydrAMINE 12.5 mg Oral BID vancomycin (VANCOCIN) intermittent dosing (placeholder) Other RX Placeholder enoxaparin 40 mg SubCUTAneous Daily sodium chloride flush 5-40 mL IntraVENous 2 times per day Social History: Social History Socioeconomic History Marital status: Single Spouse name: Not on file Number of children: Not on file Years of education: Not on file Highest education level: Not on file Occupational History Not on file Tobacco Use Smoking status: Former Smokeless tobacco: Never Substance and Sexual Activity Alcohol use: No Drug use: Yes Types: Cocaine, Opiates , Marijuana ([place]), Methamphetamines (Crystal Meth) Comment: last use 05/05 Sexual activity: Not on file Other Topics Concern Not on file Social History Narrative Not on file Social Determinants of Health Financial Resource Strain: Not on file Food Insecurity: Not on file Transportation Needs: Not on file Physical Activity: Not on file Stress: Not on file Social Connections: Not on file Intimate Partner Violence: Not on file Housing Stability: Not on file Family History: Family History Problem Relation Age of Onset Cancer Mother skin No Known Problems Father Diabetes Maternal Grandmother Diabetes Maternal Grandfather Medical Decision Making: I have independently reviewed/ordered the following labs: CBC with Differential: Recent Labs 06/20/22 0406 WBC 8.9 HGB 11.8* HCT 35.2* PLT 187 BMP: Recent Labs 06/19/22 1013 06/20/22 0406 NA 141 141 K 3.6* 4.1 CL 105 106 CO2 25 27 BUN 11 13 CREATININE 0.70 0.75 Hepatic Function Panel: Recent Labs 06/19/22 1013 LABALBU 3.3* No results for input(s): RPR in the last 72 hours. No results for input(s): HIV in the last 72 hours. No results for input(s): BC in the last 72 hours. Lab Results Component Value Date/Time CREATININE 0.75 06/20/2022 04:06 AM GLUCOSE 99 06/20/2022 04:06 AM Detailed results: Thank you for allowing us to participate in the care of this patient.Please call with questions. This note is created with the assistance of a speech recognition program. While intending to generate adocument that actually reflects the content of the visit, the document can still have some errors including those of syntax and sound a like substitutions which may escape proof reading. It such instances, actual meaningcan be extrapolated by contextual diversion. Joey Saenz MD PGY-1, Department of Internal Medicine [facility], [place], [place] I have discussed the care of the patient, including pertinent history and exam findings, with the resident. I have seen and examined the patient and the hall elements of all parts of the encounter have been performed by me. I agree with the assessment, plan and orders as documented by the resident. Marisol Andrea, Infectious Diseases Images from the original note were not included. [facility] Office: [phone] Mikie Rodriguez DO, Theo Lerma DO, Stuart Natarajan DO, Harpal Tran DO, Prashanth Sadler MD, Deana Raza MD, Florencia Canela MD, Tess Ford MD, Leodan Mak MD, Marimar Ren MD, Kyle Broussard DO, Juan Driver MD, Sophia Agustin DO, Jodi Bain MD, Palomo Drummond MD, Johann Rodriguez DO, Elvia Torres MD, Alberto Perez MD, Yuliana Saenz MD, Fabricio Syed DO, Radha Avila MD, Lyle Woods MD, Teresa Quintero, MARINE EQUIPMENT SALES ENGINEER, Leslie Rao, MARINE EQUIPMENT SALES ENGINEER, Ro Bernard, MARINE EQUIPMENT SALES ENGINEER, Carter Charles, MARINE EQUIPMENT SALES ENGINEER, KO HunterC, Eli Fu, DNP, Keri Walker, MARINE EQUIPMENT SALES ENGINEER, Sherrie Rea, MARINE EQUIPMENT SALES ENGINEER, Deysi Pablo, MARINE EQUIPMENT SALES ENGINEER, Shelli Menon, MARINE EQUIPMENT SALES ENGINEER, Tika Hernandez, MARINE EQUIPMENT SALES ENGINEER, Cathleen Moran, HAIR BLENDER, Razia Figueroa, DNP, Madalyn Julien, MARINE EQUIPMENT SALES ENGINEER, Amie Richardson, MARINE EQUIPMENT SALES ENGINEER, Mary Meléndez, MARINE EQUIPMENT SALES ENGINEER [facility] IN-PATIENT SERVICE [facility] Progress Note 06/19/2022 1:11 PM Name: Tip Ansari Acct: [id number] Room: [address] [place] [address] Day: 4 Admit Date: 06/15/2022 4:29 PM PCP: No primary care provider on file. Code Status: Full Code Subjective: C/C: Chief Complaint Patient presents with Illness Chills Chest Pain Interval History Status: slightly worse Alert and oriented Not complaining of any pain or discomfort Is obviously anxious about current condition... Brief History: Tip Ansari is a 42 y.o.-year-old mal past hx of drug use and Left calcaneal osteomyelitis, septic bursitis left heel w I/D 01/26/22. Prior candidemia with C albicans 01/21/22 TV endocarditis GIANFRANCO 01/24/22 treated w fluconazole Septic pulm emboli from MRSA septicemia 12/13/21 allergy to vanco w recurrent serotonin syndrome.Was planned for a repeat CT chest 03/05 but went to fdc due to a IVDU relapse 05/06/22 Review of Systems: Constitutional: negative for chills, fevers, sweats +fatigue Respiratory: negative for cough, dyspnea on exertion, shortness of breath, wheezing Cardiovascular: negative for chest pain, chest pressure/discomfort, lower extremity edema, palpitations Gastrointestinal: negative for abdominal pain, constipation, diarrhea, nausea, vomiting Neurological: negative for dizziness, headache Medications: Allergies: Allergies Allergen Reactions Pcn [Penicillins] Anaphylaxis Tolerated amoxicillin and tolerated zosyn Vancomycin Other (See Comments) Fever and hives chest - despite very slow infusion Current Meds: Scheduled Meds: fluconazole 400 mg Oral Daily vancomycin 1,250 mg IntraVENous Q12H diphenhydrAMINE 12.5 mg Oral BID vancomycin (VANCOCIN) intermittent dosing (placeholder) Other RX Placeholder enoxaparin 40 mg SubCUTAneous Daily sodium chloride flush 5-40 mL IntraVENous 2 times per day Continuous Infusions: sodium chloride sodium chloride PRN Meds: albuterol, sodium chloride flush, sodium chloride, acetaminophen OR acetaminophen, sodium chloride flush, sodium chloride Data: Past Medical History: has a past medical history of Abscess, Chronic hepatitis C without hepatic coma (HCC), COPD (chronic obstructive pulmonary disease) (HCC), Depression, and Drug addiction (HCC). Social History: reports that he has quit smoking. He has never used smokeless tobacco. He reports current drug use. Drugs: Cocaine, Opiates , Marijuana ([place]), and Methamphetamines (Crystal Meth). He reports that he does not drink alcohol. Family History: Family History Problem Relation Age of Onset Cancer Mother skin No Known Problems Father Diabetes Maternal Grandmother Diabetes Maternal Grandfather Vitals: BP 112/70 Pulse 83 Temp 97.6 F (36.4 C) (Temporal) Resp 19 Ht 6' 1 (1.854 m) Wt 189 lb 6 oz (85.9 kg) SpO2 93% BMI 24.99 kg/m Temp (24hrs), Av.1 F (36.7 C), Min:97.6 F (36.4 C), Max:98.5 F (36.9 C) No results for input(s): POCGLU in the last 72 hours. I/O (24Hr): Intake/Output Summary (Last 24 hours) at 06/19/2022 1311 Last data filed at 06/19/2022 0647 Gross per 24 hour Intake 258 ml Output 2500 ml Net -2242 ml Labs: Hematology: No results for input(s): WBC, RBC, HGB, HCT, MCV, MCH, MCHC, RDW, PLT, MPV, SEDRATE, CRP, INR, DDIMER, EB6CHEBJ, LABABSO in the last 72 hours. Invalid input(s): PT Chemistry: Recent Labs 06/17/22 1016 06/19/22 1013 NA 140 141 K 3.7 3.6* CL 106 105 CO2 24 25 GLUCOSE 147* 142* BUN 9 11 CREATININE 0.73 0.70 ANIONGAP 10 11 LABGLOM >60 >60 GFRAA >60 >60 CALCIUM 8.8 9.0 PHOS -- 3.3 Recent Labs 06/19/22 1013 LABALBU 3.3* ABG: Lab Results Component Value Date/Time PHART 7.380 12/16/2020 09:20 AM [id number] 44.5 12/16/2020 09:20 AM PO2ART 94.4 12/16/2020 09:20 AM CMQ1WQM 25.7 12/16/2020 09:20 AM NBEA NOT REPORTED 12/16/2020 09:20 AM PBEA 0.3 12/16/2020 09:20 AM Q3GAEQPU 97.1 12/16/2020 09:20 AM FIO2 28 12/16/2020 09:20 AM Lab Results Component Value Date/Time SPECIAL RT FOREARM 3ML 06/15/2022 05:55 PM Lab Results Component Value Date/Time CULTURE NORMAL RESPIRATORY CHRISTOPHER MODERATE GROWTH 06/16/2022 12:39 PM Radiology: XR CHEST (2 VW) Result Date: 06/15/2022 Increased opacity in the right infrahilar region compared other studies which could represent a small area of atelectasis, pneumonia or scarring in this area. Radiographic follow-up may be helpful. MRI CERVICAL SPINE W WO CONTRAST Result Date: 06/16/2022 No MRI evidence of discitis-osteomyelitis or epidural abscess. Degenerative neural foraminal stenosis at C6-C7, on the left hand side. MRI LUMBAR SPINE W WO CONTRAST Result Date: 06/16/2022 No MRI evidence of discitis-osteomyelitis or epidural abscess. 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 CT CHEST PULMONARY EMBOLISM W CONTRAST Addendum Date: 06/15/2022 ADDENDUM: There is mediastinal lymphadenopathy best visualized in subcarinal location which are likely reactive to abnormalities within the lungs. Result Date: 06/15/2022 No evidence of pulmonary embolism. There are multiple nodules left upper lobe with the largest one measuring 19 mm. These lesions are associated with surrounding ground glass density. Similar 16 mm nodule is noted within the superior segment of the right lower lobe and 12 and 11 mm nodules are noted within the right upper lobe.. Although the pattern of these lesions are most likely infectious/inflammatory in etiology, no characteristic cavitation of septic pulmonary emboli are noted Linear consolidative changes of bilateral lower lobes. The findings are most likely due to atelectasis. Physical Examination: General appearance: alert, cooperative and no distress Mental Status: oriented to person, place and time and normal affect Lungs: clear to auscultation bilaterally, normal effort Heart: regular rate and rhythm, no murmur Abdomen: soft, nontender, nondistended, normal bowel sounds, no masses, hepatomegaly, splenomegaly Extremities: no edema, redness, tenderness in the calves Skin: no gross lesions, rashes, induration Assessment: Hospital Problems Last Modified POA Sepsis due to Nathaniel species without acute organ dysfunction ([facility]) 06/17/2022 Yes IV drug abuse (HCC) 06/17/2022 Yes Septic embolism ([facility]) 06/17/2022 Yes Normocytic normochromic anemia 06/17/2022 Yes Subacute right-sided infective endocarditis 06/17/2022 Yes Plan: 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 Infectious disease following. Not candidate for valvular repair IVDA: pt without evidence of withdrawal, has been on suboxone in past, but this cannot be administered in current fdc Normocytic normochromic anemia : monitor hgb, transfuse as need for symptomatic anemia or hgb <7 COPD not in acute exacerbation : nebulizer prn PTOT Diet as tolerated Labs, imaging, ECG reviewed PTOT DC planning to follow - we need to figure out with CM where pt can go with IV abx - which will be coordinated with nurse @ [facility] - may need transfer to [facility] fdc where IV abx can be administered Alberto Perez MD 06/19/2022 1:11 PM [facility] Pharmacokinetic Monitoring Service - Vancomycin Consulting Provider: DR ANDREA Indication: PNEUMONIA AND ENDOCARDITIS Target Concentration: Goal AUC/BERENICE 400-600 mg*hr/L Day of Therapy: 2 Additional Antimicrobials: FLUCONAZOLE Pertinent Laboratory Values: Wt Readings from Last 1 Encounters: 06/19/22 189 lb 6 oz (85.9 kg) Temp Readings from Last 1 Encounters: 06/19/22 97.6 F (36.4 C) (Temporal) Estimated Creatinine Clearance: 159 mL/min (based on SCr of 0.7 mg/dL). Recent Labs 06/17/22 1016 06/19/22 1013 CREATININE 0.73 0.70 Procalcitonin: Pertinent Cultures: Culture Date Source Results 06/19 BLOOD X 2 NO GROWTH X 3DAYS 06/16 SPUTUM MIXED BACTERIA 06/16 URINE STREP PNEUMO NEGATIVE 06/16 NASAL MRSA PROBE NEGATIVE 06/16 THROAT GROUP A AG NEGATIVE MRSA Nasal Swab: was negative on 06/16, ordered for respiratory indication, pharmacy to contact provider about discontinuing vancomycin Recent vancomycin administrations vancomycin (VANCOCIN) 1250 mg in sodium chloride 0.9% 250 mL IVPB (mg) 1,250 mg New Bag 06/19/22 0453 1,250 mg New Bag 06/18/22 1724 Assessment: Date/Time Current Dose Concentration Timing of Concentration (h) AUC 06/19 1250 MG Q 12 HRS 18.4 5 HRS POST DOSE 516 Note: Serum concentrations collected for AUC dosing may appear elevated if collected in close proximity to the dose administered, this is not necessarily an indication of toxicity Plan: Current dosing regimen is therapeutic Continue current dose Repeat vancomycin concentration PRN Pharmacy will continue to monitor patient and adjust therapy as indicated Thank you for the consult, Alexei Mendoza RPH 06/19/2022 11:51 AM Potassium 3.6. No orders to replace. Dr. Perez notified. Images from the original note were not included. [facility] - Infectious diseases evaluation Progress Note admission date 06/15/2022 reason for consultation: sepsis Impression : Current: Bilat septic pulm emboli Occasional hemoptysis Endocarditis TV, vegetation larger CRP procal elevation Chills and fever in fdc Relapsed drug use SIRS + tachycardia and clammy New LBP and neck pain, MRI spine neg Left calcaneal osteoarthritis Recently: Left calcaneal osteomyelitis, septic bursitis left heel w I/D 01/26/22. Candidemia with C albicans 01/21/22 TV endocarditis GIANFRANCO 01/24/22 treated w fluconazole Septic pulm emboli from MRSA septicemia 12/13/21 allergy to vanco w recurrent serotonin syndrome. Was planned for a repeat CT chest 03/05 but went to fdc Allergy to PNC as a child, but tolerates amox and zosyn Vancomycin allergy Discussion / summary of stay / plan of care Patient with previous Nathaniel albicans fungemia on 01/21/2022 and prior MRSA septicemia on 12/13/2021 He had evidence of pulmonary emboli from the infection on CT scan of 02/14/2022. Some of those lesions have disappeared on the current CT scan of 06/15/2022. However, new lesions are present in left upper lobe and right middle lobe. The above suggests that ongoing embolization to the lung is still present. The patient has a vegetation of the tricuspid valve on ECHO of 02/14/2022. A new echo on 06/15/2022 shows persistence of the vegetation on the tricuspid valve with increase in the size of the vegetation. Patient should be evaluated by the cardiovascular thoracic surgery service. He may be a candidate for suctioning of the vegetation. Recommendations Elevated CRP and procalcitonin Transthoracic echo 06/16-positive for tricuspid valve vegetations--size has increased BC 06/13 -06/15: No growth CTS deferring angioVAC of the vegetation. Keep vanco w benadryl 12.5 po 15 minutes before. and fluconazole x 6 weeks 06/16 MRI C-spine and L-spine not showing any evidence of infectious seeding. OK forDC on dalbavancin weekly x 2 doses at the infusion center as well as fluconazole mg po daily x [address] chest in 30 days to eval resolution of the lung lesions See me office in 2 -3 weeks w weekly LFT Unear if he ll go back to fdc or will be released Infection Control Recommendations [place] Precautions Contact Isolation Antimicrobial Stewardship Recommendations Simplification of therapy Targeted therapy History of Present Illness: Initial history: Tip Ansari is a 42 y.o.-year-old male known to me for a past hx of drug use and Left calcaneal osteomyelitis, septic bursitis left heel w I/D 01/26/22. Prior candidemia with C albicans 01/21/22 TV endocarditis GIANFRANCO 01/24/22 treated w fluconazole Septic pulm emboli from MRSA septicemia 12/13/21 allergy to vanco w recurrent serotonin syndrome. Was planned for a repeat CT chest 03/05 but went to fdc due to a IVDU relapse 05/06/22 Called from fdc 06/15 for chills headaches getting worse and some LGF - sent to [facility] and seen now in ER - minimal cough and on off hemoptysis - but clammy tachycardic and looks ill - no SOB no chest pain Neck pain and headache x few weeks Lower back pain x [address] chest showed many new septic pulm emboli. WBc normal CRP procal pend BC pend Interval changes 06/19/2022 Patient Vitals for the past 8 hrs: BP Temp Temp src Pulse Resp SpO2 Weight 06/19/22 0731 107/70 97.6 F (36.4 C) Temporal 83 23 91 % -- 06/19/22 0455 -- -- -- -- -- -- 189 lb 6 oz (85.9 kg) 06/19/22 0337 104/78 98.1 F (36.7 C) Temporal (!) 102 21 93 % -- CURRENT EVALUATION 06/19/2022 -no acute events overnight -Patient is more alert today-he reports getting good sleep -Patient is anxious about his heart-states his heart rate going above 100 with movement. States he has family history of anxiety and panic attacks. Not depressed-no suicidal ideation. no chest pain, shortness of breath, palpitations or dizziness, or fever. -Normotensive satting 96% on room air. Pulse 110. Afebrile last 24 hours. -Had MRI of cervical lumbar spine 06/16 evaluate for seeding of abscess. Per MRI report no MRI evidence of discitis-osteomyelitis or epidural abscess... Degenerative neural foraminal stenosis at C6-C7, on the left-hand side... left-sided degenerative neural foraminal stenosis L3-L4. -No new labs this morning -06/16/2022 aspirated sputum growing mixed bacterial morphotypes on gram stain. -Culture showed normal respiratory christopher -He is going to be evaluated for valve replacement or percutaneous suctioning of the vegetation Notable ID-related inpatient events: Transthoracic echo 06/16-positive for tricuspid valve vegetations-it was present in previous echo on 02/14/22-size has increased Procalcitonin 0.2, WBC 10.2, ESR and CRP raised Blood and urine culture are still negative -06/16/2022 aspirated sputum growing mixed bacterial morphotypes on gram stain. -Culture showed normal respiratory christopher Summary of relevant labs: Labs: W10 Creat normal LFT normal CRP-16.4 ESR-35 Pro calcitonin -0.2 Micro: BC 06/15-negative BC 06/13-negative Urine culture 06/16 - negative -06/16/2022 aspirated sputum growing mixed bacterial morphotypes on gram stain. -Culture showed normal respiratory christopher Imaging: Transthoracic echo 06/16-positive for tricuspid valve vegetations-it was present in previous echo on 02/14/22-size has increased CT chest 06/15 -personal review: multifocal new septic emboli I have personally reviewed the past medical history, past surgical history, medications, social history, and family history, and I haveupdated the database accordingly. Allergies: Pcn [penicillins] and Vancomycin Review of Systems: Review of Systems Constitutional: Positive for fatigue. Negative for activity change and chills. HENT: Negative for congestion. Eyes: Negative for photophobia and discharge. Respiratory: Negative for apnea. Cardiovascular: Concerned about heart rate going above 100 with movement Gastrointestinal: Negative for abdominal distention. Endocrine: Negative for cold intolerance and polyphagia. Genitourinary: Negative for dysuria. Musculoskeletal: Positive for back pain and neck pain. Negative for arthralgias. Skin: Negative for color change. Neurological: Positive for weakness. Negative for dizziness. Hematological: Negative for adenopathy. Psychiatric/Behavioral: Negative for agitation. Physical Examination : Physical Exam Constitutional: Appearance: Normal appearance. He is not ill-appearing. HENT: Head: Normocephalic and atraumatic. Nose: Nose normal. Mouth/Throat: Mouth: Mucous membranes are moist. Eyes: General: No scleral icterus. Conjunctiva/sclera: Conjunctivae normal. Cardiovascular: Rate and Rhythm: Regular rhythm. Tachycardia present. Heart sounds: Normal heart sounds. No murmur heard. Pulmonary: Effort: No respiratory distress. Breath sounds: Normal breath sounds. No stridor. No wheezing. Abdominal: General: There is no distension. Palpations: There is no mass. Tenderness: There is no abdominal tenderness. Hernia: No hernia is present. Genitourinary: Comments: No ortiz Musculoskeletal: General: No swelling or deformity. Cervical back: Neck supple. No rigidity. Skin: Coloration: Skin is not jaundiced. Findings: No bruising. Neurological: General: No focal deficit present. Mental Status: He is alert and oriented to person, place, and time. Psychiatric: Mood and Affect: Mood normal. Thought Content: Thought content normal. Past Medical History: Past Medical History: Diagnosis Date Abscess 2020 left arm + MRSA Chronic hepatitis C without hepatic coma (HCC) COPD (chronic obstructive pulmonary disease) (HCC) Depression Drug addiction (HCC) heroin Past Surgical History: Past Surgical History: Procedure Laterality Date ABSCESS DRAINAGE Left 2019 arm APPENDECTOMY FINGER SURGERY Right 5 th finger tendon repair FOOT DEBRIDEMENT Left 01/26/2022 INCISION AND DRAINAGE, BONE LEFT CALCANEOUS performed by Tip Grewal DPM at [facility] OR FOOT SURGERY Left 01/26/2022 INCISION AND DRAINAGE, BONE LEFT CALCANEOUS (Left Foot) PICC INSERTION VASCULAR ACCESS TEAM 01/25/2022 TYMPANOSTOMY TUBE PLACEMENT Bilateral Medications: fluconazole 400 mg Oral Daily vancomycin 1,250 mg IntraVENous Q12H diphenhydrAMINE 12.5 mg Oral BID vancomycin (VANCOCIN) intermittent dosing (placeholder) Other RX Placeholder enoxaparin 40 mg SubCUTAneous Daily sodium chloride flush 5-40 mL IntraVENous 2 times per day Social History: Social History Socioeconomic History Marital status: Single Spouse name: Not on file Number of children: Not on file Years of education: Not on file Highest education level: Not on file Occupational History Not on file Tobacco Use Smoking status: Former Smokeless tobacco: Never Substance and Sexual Activity Alcohol use: No Drug use: Yes Types: Cocaine, Opiates , Marijuana ([place]), Methamphetamines (Crystal Meth) Comment: last use 05/05 Sexual activity: Not on file Other Topics Concern Not on file Social History Narrative Not on file Social Determinants of Health Financial Resource Strain: Not on file Food Insecurity: Not on file Transportation Needs: Not on file Physical Activity: Not on file Stress: Not on file Social Connections: Not on file Intimate Partner Violence: Not on file Housing Stability: Not on file Family History: Family History Problem Relation Age of Onset Cancer Mother skin No Known Problems Father Diabetes Maternal Grandmother Diabetes Maternal Grandfather Medical Decision Making: I have independently reviewed/ordered the following labs: CBC with Differential: No results for input(s): WBC, HGB, HCT, PLT, SEGSPCT, BANDSPCT, LYMPHOPCT, MONOPCT, EOSPCT in the last 72 hours. BMP: Recent Labs 06/17/22 1016 NA 140 K 3.7 CL 106 CO2 24 BUN 9 CREATININE 0.73 Hepatic Function Panel: No results for input(s): PROT, LABALBU, BILIDIR, IBILI, BILITOT, ALKPHOS, ALT, AST in the last 72 hours. No results for input(s): RPR in the last 72 hours. No results for input(s): HIV in the last 72 hours. No results for input(s): BC in the last 72 hours. Lab Results Component Value Date/Time CREATININE 0.73 06/17/2022 10:16 AM GLUCOSE 147 06/17/2022 10:16 AM Detailed results: Thank you for allowing us to participate in the care of this patient.Please call with questions. This note is created with the assistance of a speech recognition program. While intending to generate adocument that actually reflects the content of the visit, the document can still have some errors including those of syntax and sound a like substitutions which may escape proof reading. It such instances, actual meaningcan be extrapolated by contextual diversion. Joey Saenz MD PGY-1, Department of Internal Medicine [facility], [place], [place] I have discussed the care of the patient, including pertinent history and exam findings, with the resident. I have seen and examined the patient and the hall elements of all parts of the encounter have been performed by me. I agree with the assessment, plan and orders as documented by the resident. Marisol Andrea, Infectious Diseases [facility] Office: [phone] Mikie Rodriguez DO, Theo Lerma DO, Stuart Natarajan DO, Harpal Tran DO, Prashanth Sadler MD, Deana Raza MD, Florencia Canela MD, Tess Ford MD, Leodan Mak MD, Marimar Ren MD, Kyle Broussard DO, Juan Driver MD, Sophia Agustin DO, Jodi Bain MD, Palomo Drummond MD, Johann Rodriguez DO, Elvia Torres MD, Alberto Perez MD, Yuliana Saenz MD, Fabricio Syed DO, Radha Avila MD, Lyle Woods MD, Teresa Quintero, MARINE EQUIPMENT SALES ENGINEER, Leslie Rao, MARINE EQUIPMENT SALES ENGINEER, Ro Bernard, MARINE EQUIPMENT SALES ENGINEER, Carter Charles, MARINE EQUIPMENT SALES ENGINEER, Mckayla Abraham PA-C, Eli Fu, DNP, Keri Walker, MARINE EQUIPMENT SALES ENGINEER, Sherrie Rea, MARINE EQUIPMENT SALES ENGINEER, Deysi Pablo, MARINE EQUIPMENT SALES ENGINEER, Shelli Menon, MARINE EQUIPMENT SALES ENGINEER, Tika Hernandez, MARINE EQUIPMENT SALES ENGINEER, Cathleen Moran, HAIR BLENDER, Razia Figueroa, FÉLIX, Madalyn Julien MARINE EQUIPMENT SALES ENGINEER, Amie Richardson, MARINE EQUIPMENT SALES ENGINEER, Mary Meléndez, MARINE EQUIPMENT SALES ENGINEER [facility] Nighttime In-House Provider 06/19/2022 2:38 AM Name: Tip Ansari Acct: [id number] Room: IP Day: 4 Admit Date: 06/15/2022 4:29 PM PCP: No primary care provider on file. Code Status: Full Code Called to the floor by staff to evaluate Tip Ansari in at 1am with complaint of tachypnea. Assessment/Plan: Tachypnea- continue to monitor TV endocarditis continue conservative rx per CT surgery. On abx per id H/o vancomycin allergy- tolerating vancomycin with benadryl D/w nsg. Additional medical information reviewed: Physical Examination: Physical Exam General sleeping comfortably Lungs nonlabored breathing, adeq a/e Cardio rrr Problem List: Hospital Problems Last Modified POA Sepsis due to Nathaniel species without acute organ dysfunction (HCC) 06/17/2022 Yes IV drug abuse (HCC) 06/17/2022 Yes Septic embolism (HCC) 06/17/2022 Yes Normocytic normochromic anemia 06/17/2022 Yes Subacute right-sided infective endocarditis 06/17/2022 Yes Medications: Allergies: Allergies Allergen Reactions Pcn [Penicillins] Anaphylaxis Tolerated amoxicillin and tolerated zosyn Vancomycin Other (See Comments) Fever and hives chest - despite very slow infusion Current Meds: Scheduled Meds: fluconazole 400 mg Oral Daily vancomycin 1,250 mg IntraVENous Q12H diphenhydrAMINE 12.5 mg Oral BID vancomycin (VANCOCIN) intermittent dosing (placeholder) Other RX Placeholder enoxaparin 40 mg SubCUTAneous Daily sodium chloride flush 5-40 mL IntraVENous 2 times per day Continuous Infusions: sodium chloride sodium chloride PRN Meds: albuterol, sodium chloride flush, sodium chloride, acetaminophen OR acetaminophen, sodium chloride flush, sodium chloride Data: Past Medical History: has a past medical history of Abscess, Chronic hepatitis C without hepatic coma ([facility]), COPD (chronic obstructive pulmonary disease) ([facility]), Depression, and Drug addiction ([facility]). Vitals: BP 114/82 Pulse 77 Temp 98.4 F (36.9 C) (Oral) Resp 22 Ht 6' 1 (1.854 m) Wt 182 lb 5.1 oz (82.7 kg) SpO2 93% BMI 24.05 kg/m Temp (24hrs), Av.5 F (36.9 C), Min:97.9 F (36.6 C), Max:99 F (37.2 C) No results for input(s): POCGLU in the last 72 hours. I/O (24Hr): Intake/Output Summary (Last 24 hours) at 06/19/2022 0238 Last data filed at 06/18/2022 2126 Gross per 24 hour Intake 480 ml Output 2350 ml Net -1870 ml Labs: @LABDAILY3@ Lab Results Component Value Date/Time SPECIAL RT FOREARM 3ML 06/15/2022 05:55 PM Lab Results Component Value Date/Time CULTURE NORMAL RESPIRATORY CHRISTOPHER MODERATE GROWTH 06/16/2022 12:39 PM @[email or web address]@ Radiology: XR CHEST (2 VW) Result Date: 06/15/2022 Increased opacity in the right infrahilar region compared other studies which could represent a small area of atelectasis, pneumonia or scarring in this area. Radiographic follow-up may be helpful. MRI CERVICAL SPINE W WO CONTRAST Result Date: 06/16/2022 No MRI evidence of discitis-osteomyelitis or epidural abscess. Degenerative neural foraminal stenosis at C6-C7, on the left hand side. MRI LUMBAR SPINE W WO CONTRAST Result Date: 06/16/2022 No MRI evidence of discitis-osteomyelitis or epidural abscess. 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 CT CHEST PULMONARY EMBOLISM W CONTRAST Addendum Date: 06/15/2022 ADDENDUM: There is mediastinal lymphadenopathy best visualized in subcarinal location which are likely reactive to abnormalities within the lungs. Result Date: 06/15/2022 No evidence of pulmonary embolism. There are multiple nodules left upper lobe with the largest one measuring 19 mm. These lesions are associated with surrounding ground glass density. Similar 16 mm nodule is noted within the superior segment of the right lower lobe and 12 and 11 mm nodules are noted within the right upper lobe.. Although the pattern of these lesions are most likely infectious/inflammatory in etiology, no characteristic cavitation of septic pulmonary emboli are noted Linear consolidative changes of bilateral lower lobes. The findings are most likely due to atelectasis. Elvia Torres MD 06/19/2022 2:38 AM Images from the original note were not included. [facility] Office: [phone] Mikie Rodriguez DO, Theo Lerma DO, Stuatr Natarajan DO, Harpal Tran DO, Prashanth Sadler MD, Deana Raza MD, Florencia Canela MD, Tess Ford MD, Leodan Mak MD, Marimar Ren MD, Kyle Broussard DO, Juan Driver MD, Sophia Agustin DO, Jodi Bain MD, Palomo Drummond MD, Johann Rodriguez DO, Elvia Torres MD, Alberto Perez MD, Yuliana Saenz MD, Fabricio Syed DO, Radha Avila MD, Lyle Woods MD, Teresa Quintero, MARINE EQUIPMENT SALES ENGINEER, Leslie Rao, MARINE EQUIPMENT SALES ENGINEER, Ro Bernard, MARINE EQUIPMENT SALES ENGINEER, Carter Charles, MARINE EQUIPMENT SALES ENGINEER, KO HunterC, Eli Fu, DNP, Keri Walker, MARINE EQUIPMENT SALES ENGINEER, Sherrie Rea, MARINE EQUIPMENT SALES ENGINEER, Deysi Pablo, MARINE EQUIPMENT SALES ENGINEER, Shelli Menon, MARINE EQUIPMENT SALES ENGINEER, Tika Hernandez, MARINE EQUIPMENT SALES ENGINEER, Cathleen Moran, HAIR BLENDER, Razia Figueroa, FÉLIX, Madalyn Julien, MARINE EQUIPMENT SALES ENGINEER, Amie Richardson, MARINE EQUIPMENT SALES ENGINEER, Mary Meléndez, MARINE EQUIPMENT SALES ENGINEER [facility] IN-PATIENT SERVICE [facility] Progress Note 06/18/2022 2:40 PM Name: Tip Ansari Acct: [id number] Room: [address] [place] [address] Day: 3 Admit Date: 06/15/2022 4:29 PM PCP: No primary care provider on file. Code Status: Full Code Subjective: C/C: Chief Complaint Patient presents with Illness Chills Chest Pain Interval History Status: slightly worse He is in bed, tachycardic but comfortable Slept well yesterday more awake No fevers, chills, nausea vomiting or diarrhea Vital signs are stable Brief History: Tip Ansari is a 42 y.o.-year-old mal past hx of drug use and Left calcaneal osteomyelitis, septic bursitis left heel w I/D 01/26/22. Prior candidemia with C albicans 01/21/22 TV endocarditis GIANFRANCO 01/24/22 treated w fluconazole Septic pulm emboli from MRSA septicemia 12/13/21 allergy to vanco w recurrent serotonin syndrome.Was planned for a repeat CT chest 03/05 but went to fdc due to a IVDU relapse 05/06/22 Review of Systems: Constitutional: negative for chills, fevers, sweats +fatigue Respiratory: negative for cough, dyspnea on exertion, shortness of breath, wheezing Cardiovascular: negative for chest pain, chest pressure/discomfort, lower extremity edema, palpitations Gastrointestinal: negative for abdominal pain, constipation, diarrhea, nausea, vomiting Neurological: negative for dizziness, headache Medications: Allergies: Allergies Allergen Reactions Pcn [Penicillins] Anaphylaxis Tolerated amoxicillin and tolerated zosyn Vancomycin Other (See Comments) Fever and hives chest - despite very slow infusion Current Meds: Scheduled Meds: fluconazole 400 mg Oral Daily vancomycin 1,250 mg IntraVENous Q12H diphenhydrAMINE 12.5 mg Oral BID vancomycin (VANCOCIN) intermittent dosing (placeholder) Other RX Placeholder enoxaparin 40 mg SubCUTAneous Daily sodium chloride flush 5-40 mL IntraVENous 2 times per day Continuous Infusions: sodium chloride sodium chloride PRN Meds: sodium chloride flush, sodium chloride, acetaminophen OR acetaminophen, sodium chloride flush, sodium chloride Data: Past Medical History: has a past medical history of Abscess, Chronic hepatitis C without hepatic coma (HCC), COPD (chronic obstructive pulmonary disease) (HCC), Depression, and Drug addiction (HCC). Social History: reports that he has quit smoking. He has never used smokeless tobacco. He reports current drug use. Drugs: Cocaine, Opiates , Marijuana ([place]), and Methamphetamines (Crystal Meth). He reports that he does not drink alcohol. Family History: Family History Problem Relation Age of Onset Cancer Mother skin No Known Problems Father Diabetes Maternal Grandmother Diabetes Maternal Grandfather Vitals: BP 116/75 Pulse 96 Temp 98.8 F (37.1 C) (Oral) Resp 22 Ht 6' 1 (1.854 m) Wt 182 lb 5.1 oz (82.7 kg) SpO2 93% BMI 24.05 kg/m Temp (24hrs), Av.9 F (37.2 C), Min:97.9 F (36.6 C), Max:100.3 F (37.9 C) No results for input(s): POCGLU in the last 72 hours. I/O (24Hr): Intake/Output Summary (Last 24 hours) at 06/18/2022 1440 Last data filed at 06/18/2022 1317 Gross per 24 hour Intake 876.64 ml Output 3695 ml Net -2818.36 ml Labs: Hematology: Recent Labs 06/15/22173606/15/22184606/15/228 06/16/22 0842 WBC 10.5 -- -- -- RBC 4.63 -- -- -- HGB 12.9* -- -- -- HCT 38.8* -- -- -- MCV 83.8 -- -- -- MCH 27.9 -- -- -- MCHC 33.2 -- -- -- RDW 18.5* -- -- -- PLT 224 -- -- -- MPV 9.8 -- -- -- SEDRATE -- 35* -- -- CRP -- -- 16.4* -- INR -- -- -- 1.0 Chemistry: Recent Labs 06/15/22173606/15/22184606/16/2242 06/17/22 1016 NA 136 -- 139 140 K 4.2 -- 3.6* 3.7 CL 101 -- 107 106 CO2 24 -- 22 24 GLUCOSE 105* -- 96 147* BUN 15 -- 9 9 CREATININE 0.80 -- 0.72 0.73 ANIONGAP 11 -- 10 10 LABGLOM >60 -- >60 >60 GFRAA >60 -- >60 >60 CALCIUM 9.9 -- 8.6 8.8 PROBNP -- -- 287 -- TROPHS <6 <6 -- -- Recent Labs 06/15/22184606/16/22 0842 PROT 7.5 7.0 LABALBU 3.4* 3.1* AST 16 15 ALT 22 21 ALKPHOS 85 76 BILITOT 0.41 0.35 BILIDIR 0.15 -- ABG: Lab Results Component Value Date/Time PHART 7.380 12/16/2020 09:20 AM [id number] 44.5 12/16/2020 09:20 AM PO2ART 94.4 12/16/2020 09:20 AM [id number] 25.7 12/16/2020 09:20 AM NBEA NOT REPORTED 12/16/2020 09:20 AM PBEA 0.3 12/16/2020 09:20 AM [id number] 97.1 12/16/2020 09:20 AM FIO2 28 12/16/2020 09:20 AM Lab Results Component Value Date/Time SPECIAL RT FOREARM 3ML 06/15/2022 05:55 PM Lab Results Component Value Date/Time CULTURE NORMAL RESPIRATORY CHRISTOPHER MODERATE GROWTH 06/16/2022 12:39 PM Radiology: XR CHEST (2 VW) Result Date: 06/15/2022 Increased opacity in the right infrahilar region compared other studies which could represent a small area of atelectasis, pneumonia or scarring in this area. Radiographic follow-up may be helpful. MRI CERVICAL SPINE W WO CONTRAST Result Date: 06/16/2022 No MRI evidence of discitis-osteomyelitis or epidural abscess. Degenerative neural foraminal stenosis at C6-C7, on the left hand side. MRI LUMBAR SPINE W WO CONTRAST Result Date: 06/16/2022 No MRI evidence of discitis-osteomyelitis or epidural abscess. 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 CT CHEST PULMONARY EMBOLISM W CONTRAST Addendum Date: 06/15/2022 ADDENDUM: There is mediastinal lymphadenopathy best visualized in subcarinal location which are likely reactive to abnormalities within the lungs. Result Date: 06/15/2022 No evidence of pulmonary embolism. There are multiple nodules left upper lobe with the largest one measuring 19 mm. These lesions are associated with surrounding ground glass density. Similar 16 mm nodule is noted within the superior segment of the right lower lobe and 12 and 11 mm nodules are noted within the right upper lobe.. Although the pattern of these lesions are most likely infectious/inflammatory in etiology, no characteristic cavitation of septic pulmonary emboli are noted Linear consolidative changes of bilateral lower lobes. The findings are most likely due to atelectasis. Physical Examination: General appearance: alert, cooperative and no distress Mental Status: oriented to person, place and time and normal affect Lungs: clear to auscultation bilaterally, normal effort Heart: regular rate and rhythm, no murmur Abdomen: soft, nontender, nondistended, normal bowel sounds, no masses, hepatomegaly, splenomegaly Extremities: no edema, redness, tenderness in the calves Skin: no gross lesions, rashes, induration Assessment: Hospital Problems Last Modified POA Subacute right-sided infective endocarditis 06/17/2022 Yes Sepsis due to Nathaniel species without acute organ dysfunction (HCC) 06/17/2022 Yes IV drug abuse (HCC) 06/17/2022 Yes Septic embolism (HCC) 06/17/2022 Yes Normocytic normochromic anemia 06/17/2022 Yes Plan: 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 Infectious disease following. Discussed case with CTS . Will evaluate patient for valve replacement if not a candidate Vascular will consider perc removal of vegetation. IVDA: pt without evidence of withdrawal Normocytic normochromic anemia : monitor hgb, transfuse as need for symptomatic anemia or hgb <7 COPD not in acute exacerbation : nebulizer prn PTOT Diet as tolerated Labs, imaging, ECG reviewed PTOT Sophia Agustin DO 06/18/2022 2:40 PM [facility] Pharmacokinetic Monitoring Service - Vancomycin Tip Ansari is a 42 y.o. male starting on vancomycin therapy for endocarditis and pneumonia. Pharmacy consulted by Dr. Andrea for monitoring and adjustment. Target Concentration: Goal AUC/BERENICE 400-600 mg*hr/L Additional Antimicrobials: fluconazole Pertinent Laboratory Values: Wt Readings from Last 1 Encounters: 06/18/22 182 lb 5.1 oz (82.7 kg) Temp Readings from Last 1 Encounters: 06/18/22 99 F (37.2 C) (Temporal) Estimated Creatinine Clearance: 152 mL/min (based on SCr of 0.73 mg/dL). Recent Labs 06/15/22 1737 06/16/22 0842 06/17/22 1016 CREATININE 0.80 0.72 0.73 WBC 10.5 -- -- Procalcitonin: 0.21 Pertinent Cultures: Culture Date Source Results 06/15 Blood No growth x 2 days 06/16 Sputum Normal christopher MRSA Nasal Swab: N/A. Non-respiratory infection. Plan: Dosing recommendations based on Bayesian software Start vancomycin 1250 mg IV every 12 hours Anticipated AUC of 459 and trough concentration of 13.3 at steady state Renal labs as indicated Pharmacy will continue to monitor patient and adjust therapy as indicated Thank you for the consult, Mindy Parada RPH 06/18/2022 12:13 PM Images from the original note were not included. [facility] - Infectious diseases evaluation Progress Note admission date 06/15/2022 reason for consultation: sepsis Impression : Current: Bilat septic pulm emboli Occasional hemoptysis Endocarditis TV, vegetation larger CRP procal elevation Chills and fever in fdc Relapsed drug use SIRS + tachycardia and clammy New LBP and neck pain, MRI spine neg Left calcaneal osteoarthritis Recently: Left calcaneal osteomyelitis, septic bursitis left heel w I/D 01/26/22. Candidemia with C albicans 01/21/22 TV endocarditis GIANFRANCO 01/24/22 treated w fluconazole Septic pulm emboli from MRSA septicemia 12/13/21 allergy to vanco w recurrent serotonin syndrome. Was planned for a repeat CT chest 03/05 but went to fdc Allergy to PNC as a child, but tolerates amox and zosyn Vancomycin allergy Discussion / summary of stay / plan of care Patient with previous Nathaniel albicans fungemia on 01/21/2022 and prior MRSA septicemia on 12/13/2021 He had evidence of pulmonary emboli from the infection on CT scan of 02/14/2022. Some of those lesions have disappeared on the current CT scan of 06/15/2022. However, new lesions are present in left upper lobe and right middle lobe. The above suggests that ongoing embolization to the lung is still present. The patient has a vegetation of the tricuspid valve on ECHO of 02/14/2022. A new echo on 06/15/2022 shows persistence of the vegetation on the tricuspid valve with increase in the size of the vegetation. Patient should be evaluated by the cardiovascular thoracic surgery service. He may be a candidate for suctioning of the vegetation. Recommendations Elevated CRP and procalcitonin Transthoracic echo 06/16-positive for tricuspid valve vegetations--size has increased BC 06/13 -06/15: No growth Asking Cardiovascular thoracic surgery for angioVAC of the vegetation. Keep vanco w benadryl 12.5 po 15 minutes before. and fluconazole x 6 weeks 06/16 MRI C-spine and L-spine not showing any evidence of infectious seeding. Infection Control Recommendations [place] Precautions Contact Isolation Antimicrobial Stewardship Recommendations Simplification of therapy Targeted therapy History of Present Illness: Initial history: Tip Ansari is a 42 y.o.-year-old male known to me for a past hx of drug use and Left calcaneal osteomyelitis, septic bursitis left heel w I/D 01/26/22. Prior candidemia with C albicans 01/21/22 TV endocarditis GIANFRANCO 01/24/22 treated w fluconazole Septic pulm emboli from MRSA septicemia 12/13/21 allergy to vanco w recurrent serotonin syndrome. Was planned for a repeat CT chest 03/05 but went to fdc due to a IVDU relapse 05/06/22 Called from fdc 06/15 for chills headaches getting worse and some LGF - sent to [facility] and seen now in ER - minimal cough and on off hemoptysis - but clammy tachycardic and looks ill - no SOB no chest pain Neck pain and headache x few weeks Lower back pain x [address] chest showed many new septic pulm emboli. WBc normal CRP procal pend BC pend Interval changes 06/18/2022 Patient Vitals for the past 8 hrs: BP Temp Temp src Pulse Resp SpO2 Height Weight 06/18/22 0722 107/82 99 F (37.2 C) Temporal 97 16 93 % -- -- 06/18/22 0600 -- -- -- -- -- -- 6' 1 (1.854 m) 182 lb 5.1 oz (82.7 kg) 06/18/22 0352 121/82 97.9 F (36.6 C) Oral 86 17 95 % -- -- CURRENT EVALUATION 06/18/2022 -no acute events overnight -Patient is more alert today-he reports getting good sleep -Patient is anxious about his heart-states his heart rate going above 100 with movement. No chest pain, shortness of breath, palpitations or dizziness, or fever. -Normotensive satting 96% on room air. Pulse 110. Afebrile last 24 hours. -Had MRI of cervical lumbar spine yesterday to evaluate for seeding of abscess. Per MRI report no MRI evidence of discitis-osteomyelitis or epidural abscess... Degenerative neural foraminal stenosis at C6-C7, on the left-hand side... left-sided degenerative neural foraminal stenosis L3-L4. -No new labs this morning -06/16/2022 aspirated sputum growing mixed bacterial morphotypes on gram stain. -Culture showed normal respiratory christopher -He is going to be evaluated for valve replacement or percutaneous suctioning of the vegetation Notable ID-related inpatient events: Transthoracic echo 06/16-positive for tricuspid valve vegetations-it was present in previous echo on 02/14/22-size has increased Procalcitonin 0.2, WBC 10.2, ESR and CRP raised Blood and urine culture are still negative -06/16/2022 aspirated sputum growing mixed bacterial morphotypes on gram stain. -Culture showed normal respiratory christopher Summary of relevant labs: Labs: W10 Creat normal LFT normal CRP-16.4 ESR-35 proical-0.2 Micro: BC 06/15-negative BC 06/13-negative Urine culture 06/16-negative Imaging: Transthoracic echo 06/16-positive for tricuspid valve vegetations-it was present in previous echo on 02/14/22-size has increased CT chest 06/15 -personal review: multifocal new septic emboli I have personally reviewed the past medical history, past surgical history, medications, social history, and family history, and I haveupdated the database accordingly. Allergies: Pcn [penicillins] and Vancomycin Review of Systems: Review of Systems Constitutional: Positive for fatigue. Negative for activity change and chills. HENT: Negative for congestion. Eyes: Negative for discharge. Respiratory: Negative for apnea. Cardiovascular: Concerned about heart rate going above 100 with movement Gastrointestinal: Negative for abdominal distention. Endocrine: Negative for cold intolerance. Genitourinary: Negative for dysuria. Musculoskeletal: Positive for back pain and neck pain. Negative for arthralgias. Skin: Negative for color change. Neurological: Positive for weakness. Negative for dizziness. Hematological: Negative for adenopathy. Psychiatric/Behavioral: Negative for agitation. Physical Examination : Physical Exam Constitutional: Appearance: Normal appearance. He is ill-appearing. HENT: Head: Normocephalic and atraumatic. Nose: Nose normal. Mouth/Throat: Mouth: Mucous membranes are moist. Eyes: General: No scleral icterus. Conjunctiva/sclera: Conjunctivae normal. Cardiovascular: Rate and Rhythm: Regular rhythm. Tachycardia present. Heart sounds: Normal heart sounds. No murmur heard. Pulmonary: Effort: No respiratory distress. Breath sounds: Normal breath sounds. Abdominal: General: There is no distension. Palpations: There is no mass. Tenderness: There is no abdominal tenderness. Hernia: No hernia is present. Genitourinary: Comments: No ortiz Musculoskeletal: General: No swelling or deformity. Cervical back: Neck supple. No rigidity. Skin: Coloration: Skin is not jaundiced. Findings: No bruising. Neurological: General: No focal deficit present. Mental Status: He is alert and oriented to person, place, and time. Psychiatric: Mood and Affect: Mood normal. Thought Content: Thought content normal. Past Medical History: Past Medical History: Diagnosis Date Abscess 2020 left arm + MRSA Chronic hepatitis C without hepatic coma (HCC) COPD (chronic obstructive pulmonary disease) (HCC) Depression Drug addiction (HCC) heroin Past Surgical History: Past Surgical History: Procedure Laterality Date ABSCESS DRAINAGE Left 2019 arm APPENDECTOMY FINGER SURGERY Right 5 th finger tendon repair FOOT DEBRIDEMENT Left 01/26/2022 INCISION AND DRAINAGE, BONE LEFT CALCANEOUS performed by Tip Grewal DPM at [facility] OR FOOT SURGERY Left 01/26/2022 INCISION AND DRAINAGE, BONE LEFT CALCANEOUS (Left Foot) PICC INSERTION VASCULAR ACCESS TEAM 01/25/2022 TYMPANOSTOMY TUBE PLACEMENT Bilateral Medications: enoxaparin 40 mg SubCUTAneous Daily sodium chloride flush 5-40 mL IntraVENous 2 times per day fluconazole 400 mg IntraVENous Q24H Social History: Social History Socioeconomic History Marital status: Single Spouse name: Not on file Number of children: Not on file Years of education: Not on file Highest education level: Not on file Occupational History Not on file Tobacco Use Smoking status: Former Smokeless tobacco: Never Substance and Sexual Activity Alcohol use: No Drug use: Yes Types: Cocaine, Opiates , Marijuana ([place]), Methamphetamines (Crystal Meth) Comment: last use 05/05 Sexual activity: Not on file Other Topics Concern Not on file Social History Narrative Not on file Social Determinants of Health Financial Resource Strain: Not on file Food Insecurity: Not on file Transportation Needs: Not on file Physical Activity: Not on file Stress: Not on file Social Connections: Not on file Intimate Partner Violence: Not on file Housing Stability: Not on file Family History: Family History Problem Relation Age of Onset Cancer Mother skin No Known Problems Father Diabetes Maternal Grandmother Diabetes Maternal Grandfather Medical Decision Making: I have independently reviewed/ordered the following labs: CBC with Differential: Recent Labs 06/15/22 1737 WBC 10.5 HGB 12.9* HCT 38.8* PLT 224 LYMPHOPCT 11* MONOPCT 10 BMP: Recent Labs 06/16/22 0842 06/17/22 1016 NA 139 140 K 3.6* 3.7 CL 107 106 CO2 22 24 BUN 9 9 CREATININE 0.72 0.73 Hepatic Function Panel: Recent Labs 06/15/22 1847 06/16/22 0842 PROT 7.5 7.0 LABALBU 3.4* 3.1* BILIDIR 0.15 -- IBILI 0.26 -- BILITOT 0.41 0.35 ALKPHOS 85 76 ALT 22 21 AST 16 15 No results for input(s): RPR in the last 72 hours. No results for input(s): HIV in the last 72 hours. No results for input(s): BC in the last 72 hours. Lab Results Component Value Date/Time CREATININE 0.73 06/17/2022 10:16 AM GLUCOSE 147 06/17/2022 10:16 AM Detailed results: Thank you for allowing us to participate in the care of this patient.Please call with questions. This note is created with the assistance of a speech recognition program. While intending to generate adocument that actually reflects the content of the visit, the document can still have some errors including those of syntax and sound a like substitutions which may escape proof reading. It such instances, actual meaningcan be extrapolated by contextual diversion. Joey Saenz MD PGY-1, Department of Internal Medicine [facility], [place], [place] I have discussed the care of the patient, including pertinent history and exam findings, with the resident. I have seen and examined the patient and the hall elements of all parts of the encounter have been performed by me. I agree with the assessment, plan and orders as documented by the resident. Marisol Andrea, Infectious Diseases Images from the original note were not included. [facility] Office: [phone] Mikie Rodriguez DO, Theo Lerma DO, Stuart Natarajan, DO, Harpal Tran, DO, Prashanth Sadler MD, Deana Raza MD, Florencia Canela MD, Tess Ford MD, Leodan Mak MD, Marimar Ren MD, Kyle Broussard, DO, Juan Driver MD, Sophia Agustin, DO, Jodi Bain MD, Palomo Drummond MD, Johann Rodriguez DO, Elvia Torres MD, Alberto Perez MD, Yuliana Saenz MD, Fabricio Syed DO, Radha Avila MD, Lyle Woods MD, Teresa Quintero, MARINE EQUIPMENT SALES ENGINEER, Leslie Rao, MARINE EQUIPMENT SALES ENGINEER, Ro Bernard, MARINE EQUIPMENT SALES ENGINEER, Carter Charles, MARINE EQUIPMENT SALES ENGINEER, KO HunterC, Eli Fu, DNP, Keri Walker, MARINE EQUIPMENT SALES ENGINEER, Sherrie Rea, MARINE EQUIPMENT SALES ENGINEER, Deysi Pablo, MARINE EQUIPMENT SALES ENGINEER, Shelli Menon, MARINE EQUIPMENT SALES ENGINEER, Tika Hernandez, MARINE EQUIPMENT SALES ENGINEER, Cathleen Moran, HAIR BLENDER, Razia Figueroa, DNP, Madalyn Julien, MARINE EQUIPMENT SALES ENGINEER, Amie Richardson, MARINE EQUIPMENT SALES ENGINEER, Mary Meléndez, MARINE EQUIPMENT SALES ENGINEER [facility] IN-PATIENT SERVICE [facility] Progress Note 06/17/2022 3:17 PM Name: Tip Ansari Acct: [id number] Room: [address] [place] [address] Day: 2 Admit Date: 06/15/2022 4:29 PM PCP: No primary care provider on file. Code Status: Full Code Subjective: C/C: Chief Complaint Patient presents with Illness Chills Chest Pain Interval History Status: First time seeing patient. He is in bed, comfortable appearing He feels sleepy but denies any fatigue or pain No fevers, chills, nausea vomiting or diarrhea Vital signs are stable Brief History: Tip Ansari is a 42 y.o.-year-old mal past hx of drug use and Left calcaneal osteomyelitis, septic bursitis left heel w I/D 01/26/22. Prior candidemia with C albicans 01/21/22 TV endocarditis GIANFRANCO 01/24/22 treated w fluconazole Septic pulm emboli from MRSA septicemia 12/13/21 allergy to vanco w recurrent serotonin syndrome.Was planned for a repeat CT chest 03/05 but went to [facility]dc due to a IVDU relapse 05/06/22 Review of Systems: Constitutional: negative for chills, fevers, sweats +fatigue Respiratory: negative for cough, dyspnea on exertion, shortness of breath, wheezing Cardiovascular: negative for chest pain, chest pressure/discomfort, lower extremity edema, palpitations Gastrointestinal: negative for abdominal pain, constipation, diarrhea, nausea, vomiting Neurological: negative for dizziness, headache Medications: Allergies: Allergies Allergen Reactions Pcn [Penicillins] Anaphylaxis Tolerated amoxicillin and tolerated zosyn Vancomycin Other (See Comments) Fever and hives chest - despite very slow infusion Current Meds: Scheduled Meds: enoxaparin 40 mg SubCUTAneous Daily sodium chloride flush 5-40 mL IntraVENous 2 times per day fluconazole 400 mg IntraVENous Q24H Continuous Infusions: sodium chloride sodium chloride PRN Meds: sodium chloride flush, sodium chloride, acetaminophen OR acetaminophen, sodium chloride flush, sodium chloride Data: Past Medical History: has a past medical history of Abscess, Chronic hepatitis C without hepatic coma (HCC), COPD (chronic obstructive pulmonary disease) (HCC), Depression, and Drug addiction (HCC). Social History: reports that he has quit smoking. He has never used smokeless tobacco. He reports current drug use. Drugs: Cocaine, Opiates , Marijuana ([place]), and Methamphetamines (Crystal Meth). He reports that he does not drink alcohol. Family History: Family History Problem Relation Age of Onset Cancer Mother skin No Known Problems Father Diabetes Maternal Grandmother Diabetes Maternal Grandfather Vitals: BP 111/83 Pulse 98 Temp 98.7 F (37.1 C) (Oral) Resp 25 Ht 6' 1 (1.854 m) Wt 180 lb 12.4 oz (82 kg) SpO2 93% BMI 23.85 kg/m Temp (24hrs), Av.3 F (36.8 C), Min:97.8 F (36.6 C), Max:98.8 F (37.1 C) No results for input(s): POCGLU in the last 72 hours. I/O (24Hr): Intake/Output Summary (Last 24 hours) at 06/17/2022 1517 Last data filed at 06/17/2022 0800 Gross per 24 hour Intake 1200.35 ml Output 2700 ml Net -1499.65 ml Labs: Hematology: Recent Labs 06/15/22173606/15/22184606/15/22 2328 06/16/22 0842 WBC 10.5 -- -- -- RBC 4.63 -- -- -- HGB 12.9* -- -- -- HCT 38.8* -- -- -- MCV 83.8 -- -- -- MCH 27.9 -- -- -- MCHC 33.2 -- -- -- RDW 18.5* -- -- -- PLT 224 -- -- -- MPV 9.8 -- -- -- SEDRATE -- 35* -- -- CRP -- -- 16.4* -- INR -- -- -- 1.0 Chemistry: Recent Labs 06/15/22173606/15/22184606/16/22 0842 06/17/22 1016 NA 136 -- 139 140 K 4.2 -- 3.6* 3.7 CL 101 -- 107 106 CO2 24 -- 22 24 GLUCOSE 105* -- 96 147* BUN 15 -- 9 9 CREATININE 0.80 -- 0.72 0.73 ANIONGAP 11 -- 10 10 LABGLOM >60 -- >60 >60 GFRAA >60 -- >60 >60 CALCIUM 9.9 -- 8.6 8.8 PROBNP -- -- 287 -- TROPHS <6 <6 -- -- Recent Labs 06/15/22184606/16/22 0842 PROT 7.5 7.0 LABALBU 3.4* 3.1* AST 16 15 ALT 22 21 ALKPHOS 85 76 BILITOT 0.41 0.35 BILIDIR 0.15 -- ABG: Lab Results Component Value Date/Time PHART 7.380 12/16/2020 09:20 AM SIT2YSW 44.5 12/16/2020 09:20 AM PO2ART 94.4 12/16/2020 09:20 AM [id number] 25.7 12/16/2020 09:20 AM NBEA NOT REPORTED 12/16/2020 09:20 AM PBEA 0.3 12/16/2020 09:20 AM [id number] 97.1 12/16/2020 09:20 AM FIO2 28 12/16/2020 09:20 AM Lab Results Component Value Date/Time SPECIAL RT FOREARM 3ML 06/15/2022 05:55 PM Lab Results Component Value Date/Time CULTURE PENDING 06/16/2022 12:39 PM Radiology: XR CHEST (2 VW) Result Date: 06/15/2022 Increased opacity in the right infrahilar region compared other studies which could represent a small area of atelectasis, pneumonia or scarring in this area. Radiographic follow-up may be helpful. MRI CERVICAL SPINE W WO CONTRAST Result Date: 06/16/2022 No MRI evidence of discitis-osteomyelitis or epidural abscess. Degenerative neural foraminal stenosis at C6-C7, on the left hand side. MRI LUMBAR SPINE W WO CONTRAST Result Date: 06/16/2022 No MRI evidence of discitis-osteomyelitis or epidural abscess. 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 CT CHEST PULMONARY EMBOLISM W CONTRAST Addendum Date: 06/15/2022 ADDENDUM: There is mediastinal lymphadenopathy best visualized in subcarinal location which are likely reactive to abnormalities within the lungs. Result Date: 06/15/2022 No evidence of pulmonary embolism. There are multiple nodules left upper lobe with the largest one measuring 19 mm. These lesions are associated with surrounding ground glass density. Similar 16 mm nodule is noted within the superior segment of the right lower lobe and 12 and 11 mm nodules are noted within the right upper lobe.. Although the pattern of these lesions are most likely infectious/inflammatory in etiology, no characteristic cavitation of septic pulmonary emboli are noted Linear consolidative changes of bilateral lower lobes. The findings are most likely due to atelectasis. Physical Examination: General appearance: alert, cooperative and no distress Mental Status: oriented to person, place and time and normal affect Lungs: clear to auscultation bilaterally, normal effort Heart: regular rate and rhythm, no murmur Abdomen: soft, nontender, nondistended, normal bowel sounds, no masses, hepatomegaly, splenomegaly Extremities: no edema, redness, tenderness in the calves Skin: no gross lesions, rashes, induration Assessment: Hospital Problems Last Modified POA Subacute right-sided infective endocarditis 06/17/2022 Yes Sepsis due to Nathaniel species without acute organ dysfunction (HCC) 06/17/2022 Yes IV drug abuse (HCC) 06/17/2022 Yes Septic embolism (HCC) 06/17/2022 Yes Normocytic normochromic anemia 06/17/2022 Yes Plan: 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 Infectious disease following. Discussed case with ID, and CTS . Will evaluate patient for valve replacement if not a candidate Vascular will consider perc removal of vegetation. IVDA: pt without evidence of withdrawal Normocytic normochromic anemia : monitor hgb, transfuse as need for symptomatic anemia or hgb <7 COPD not in acute exacerbation : nebulizer prn PTOT Diet as tolerated Labs, imaging, ECG reviewed PTOT Sophia Agustin DO 06/17/2022 3:17 PM Images from the original note were not included. [facility] - Infectious diseases evaluation Progress Note admission date 06/15/2022 reason for consultation: sepsis Impression : Current: Bilat septic pulm emboli Occasional hemoptysis Chills and fever in fdc Relapsed drug use SIRS + tachycardia and clammy New LBP and neck pain Left calcaneal osteoarthritis Recently: Left calcaneal osteomyelitis, septic bursitis left heel w I/D 01/26/22. Candidemia with C albicans 01/21/22 TV endocarditis GIANFRANCO 01/24/22 treated w fluconazole Septic pulm emboli from MRSA septicemia 12/13/21 allergy to vanco w recurrent serotonin syndrome. Was planned for a repeat CT chest 03/05 but went to fdc Allergy to PNC as a child, but tolerates amox and zosyn Vancomycin allergy Discussion / summary of stay / plan of care Patient with previous Nathaniel albicans fungemia on 01/21/2022 and prior MRSA septicemia on 12/13/2021 He had evidence of pulmonary emboli from the infection on CT scan of 02/14/2022. Some of those lesions have disappeared on the current CT scan of 06/15/2022. However, new lesions are present in left upper lobe and right middle lobe. The above suggests that ongoing embolization to the lung is still present. The patient has a vegetation of the tricuspid valve on ECHO of 02/14/2022. A new echo on 06/15/2022 shows persistence of the vegetation on the tricuspid valve with increase in the size of the vegetation. Patient should be evaluated by the cardiovascular thoracic surgery service. He may be a candidate for suctioning of the vegetation. Recommendations Elevated CRP and procalcitonin Transthoracic echo 06/16-positive for tricuspid valve vegetations-it was present in previous echo on 02/14/22-size has increased BC 06/13 -06/15: No growth He had evidence of pulmonary emboli from the infection on CT scan of 02/14/2022. Some of those lesions have disappeared on the current CT scan of 06/15/2022. However, new lesions are present in left upper lobe and right middle lobe. The above suggests that ongoing embolization to the lung is still present. Patient should be evaluated by the cardiovascular thoracic surgery service. He may be a candidate for suctioning of the vegetation. Empirically on Fluconazole pending cultures Fluconazole based on prior Nathaniel albicans fungemia 06/16 MRI C-spine and L-spine not showing any evidence of infectious seeding. Infection Control Recommendations [place] Precautions Contact Isolation Antimicrobial Stewardship Recommendations Simplification of therapy Targeted therapy History of Present Illness: Initial history: Tip Ansari is a 42 y.o.-year-old male known to me for a past hx of drug use and Left calcaneal osteomyelitis, septic bursitis left heel w I/D 01/26/22. Prior candidemia with C albicans 01/21/22 TV endocarditis GIANFRANCO 01/24/22 treated w fluconazole Septic pulm emboli from MRSA septicemia 12/13/21 allergy to vanco w recurrent serotonin syndrome. Was planned for a repeat CT chest 03/05 but went to fdc due to a IVDU relapse 05/06/22 Called from fdc 06/15 for chills headaches getting worse and some LGF - sent to [facility] and seen now in ER - minimal cough and on off hemoptysis - but clammy tachycardic and looks ill - no SOB no chest pain Neck pain and headache x few weeks Lower back pain x [address] chest showed many new septic pulm emboli. WBc normal CRP procal pend BC pend Interval changes 06/17/2022 Patient Vitals for the past 8 hrs: BP Temp Temp src Pulse Resp SpO2 Weight 06/17/22 0547 -- -- -- -- -- -- 180 lb 12.4 oz (82 kg) 06/17/22 0451 110/80 97.8 F (36.6 C) Temporal 100 21 96 % -- CURRENT EVALUATION 06/17/2022 -no acute events overnight -seen bedside 11:43-primary team attending present-pt stable and ready for discharge-discussing potential PO abx to be discharged on -patient sleeping and appears NAD -Normotensive satting 96% on room air. Pulse 100. Afebrile last 24 hours. -Had MRI of cervical lumbar spine yesterday to evaluate for seeding of abscess. Per MRI report no MRI evidence of discitis-osteomyelitis or epidural abscess... Degenerative neural foraminal stenosis at C6-C7, on the left-hand side... left-sided degenerative neural foraminal stenosis L3-L4. -No new labs this morning -06/16/2022 aspirated sputum growing mixed bacterial morphotypes on gram stain. Notable ID-related inpatient events: Transthoracic echo 06/16-positive for tricuspid valve vegetations-it was present in previous echo on 02/14/22-size has increased Procalcitonin 0.2, WBC 10.2, ESR and CRP raised Blood and urine culture are still negative -06/16/2022 aspirated sputum growing mixed bacterial morphotypes on gram stain. Summary of relevant labs: Labs: W10 Creat normal LFT normal CRP-16.4 ESR-35 proical-0.2 Micro: BC 8/5 BC 8/3 Urine culture 06/16 Imaging: Transthoracic echo 06/16-positive for tricuspid valve vegetations-it was present in previous echo on 02/14/22-size has increased CT chest 06/15 -personal review: multifocal new septic emboli I have personally reviewed the past medical history, past surgical history, medications, social history, and family history, and I haveupdated the database accordingly. Allergies: Pcn [penicillins] and Vancomycin Review of Systems: Review of Systems Constitutional: Positive for fatigue. Negative for activity change and chills. HENT: Negative for congestion. Eyes: Negative for discharge. Respiratory: Negative for apnea. Gastrointestinal: Negative for abdominal distention. Endocrine: Negative for cold intolerance. Genitourinary: Negative for dysuria. Musculoskeletal: Positive for back pain and neck pain. Negative for arthralgias. Skin: Negative for color change. Neurological: Positive for weakness. Negative for dizziness. Hematological: Negative for adenopathy. Psychiatric/Behavioral: Negative for agitation. Physical Examination : Physical Exam Constitutional: Appearance: Normal appearance. He is ill-appearing. HENT: Head: Normocephalic and atraumatic. Nose: Nose normal. Mouth/Throat: Mouth: Mucous membranes are moist. Eyes: General: No scleral icterus. Conjunctiva/sclera: Conjunctivae normal. Cardiovascular: Rate and Rhythm: Regular rhythm. Tachycardia present. Heart sounds: Normal heart sounds. No murmur heard. Pulmonary: Effort: No respiratory distress. Breath sounds: Normal breath sounds. Abdominal: General: There is no distension. Palpations: There is no mass. Tenderness: There is no abdominal tenderness. Hernia: No hernia is present. Genitourinary: Comments: No ortiz Musculoskeletal: General: No swelling or deformity. Cervical back: Neck supple. No rigidity. Skin: Coloration: Skin is not jaundiced. Findings: No bruising. Neurological: General: No focal deficit present. Mental Status: He is alert and oriented to person, place, and time. Psychiatric: Mood and Affect: Mood normal. Thought Content: Thought content normal. Past Medical History: Past Medical History: Diagnosis Date Abscess 2020 left arm + MRSA Chronic hepatitis C without hepatic coma (HCC) COPD (chronic obstructive pulmonary disease) (HCC) Depression Drug addiction (HCC) heroin Past Surgical History: Past Surgical History: Procedure Laterality Date ABSCESS DRAINAGE Left 2019 arm APPENDECTOMY FINGER SURGERY Right 5 th finger tendon repair FOOT DEBRIDEMENT Left 01/26/2022 INCISION AND DRAINAGE, BONE LEFT CALCANEOUS performed by Tip Grewal DPM at [facility] OR FOOT SURGERY Left 01/26/2022 INCISION AND DRAINAGE, BONE LEFT CALCANEOUS (Left Foot) PICC INSERTION VASCULAR ACCESS TEAM 01/25/2022 TYMPANOSTOMY TUBE PLACEMENT Bilateral Medications: enoxaparin 40 mg SubCUTAneous Daily sodium chloride flush 5-40 mL IntraVENous 2 times per day fluconazole 400 mg IntraVENous Q24H cefepime 2,000 mg IntraVENous Q12H Social History: Social History Socioeconomic History Marital status: Single Spouse name: Not on file Number of children: Not on file Years of education: Not on file Highest education level: Not on file Occupational History Not on file Tobacco Use Smoking status: Former Smokeless tobacco: Never Substance and Sexual Activity Alcohol use: No Drug use: Yes Types: Cocaine, Opiates , Marijuana ([place]), Methamphetamines (Crystal Meth) Comment: last use 05/05 Sexual activity: Not on file Other Topics Concern Not on file Social History Narrative Not on file Social Determinants of Health Financial Resource Strain: Not on file Food Insecurity: Not on file Transportation Needs: Not on file Physical Activity: Not on file Stress: Not on file Social Connections: Not on file Intimate Partner Violence: Not on file Housing Stability: Not on file Family History: Family History Problem Relation Age of Onset Cancer Mother skin No Known Problems Father Diabetes Maternal Grandmother Diabetes Maternal Grandfather Medical Decision Making: I have independently reviewed/ordered the following labs: CBC with Differential: Recent Labs 06/15/22 1737 WBC 10.5 HGB 12.9* HCT 38.8* PLT 224 LYMPHOPCT 11* MONOPCT 10 BMP: Recent Labs 06/15/22 1737 06/16/22 0842 NA 136 139 K 4.2 3.6* CL 101 107 CO2 24 22 BUN 15 9 CREATININE 0.80 0.72 Hepatic Function Panel: Recent Labs 06/15/22 1847 06/16/22 0842 PROT 7.5 7.0 LABALBU 3.4* 3.1* BILIDIR 0.15 -- IBILI 0.26 -- BILITOT 0.41 0.35 ALKPHOS 85 76 ALT 22 21 AST 16 15 No results for input(s): RPR in the last 72 hours. No results for input(s): HIV in the last 72 hours. No results for input(s): BC in the last 72 hours. Lab Results Component Value Date/Time CREATININE 0.72 06/16/2022 08:42 AM GLUCOSE 96 06/16/2022 08:42 AM Detailed results: Thank you for allowing us to participate in the care of this patient.Please call with questions. This note is created with the assistance of a speech recognition program. While intending to generate adocument that actually reflects the content of the visit, the document can still have some errors including those of syntax and sound a like substitutions which may escape proof reading. It such instances, actual meaningcan be extrapolated by contextual diversion. Morgan Guerrero MD PGY-3, Department of Internal Medicine [place], [place] Final assessment and plan pending discussion with attending. Please see his final attestation below. ATTESTATION: I have discussed the case, including pertinent history and exam findings with the residents and students. I have seen and examined the patient and the hall elements of the encounter have been performed by me. I was present when the student obtained his information or examined the patient. I have reviewed the laboratory data, other diagnostic studies and discussed them with the residents. I have updated the medical record where necessary. I agree with the assessment, plan and orders as documented by the resident/ student. Tariq Dumont MD. Images from the original note were not included. [facility] - Infectious diseases evaluation Progress Note admission date 06/15/2022 reason for consultation: sepsis Impression : Current: Bilat septic pulm emboli Occasional hemoptysis Chills and fever in fdc Relapsed drug use SIRS + tachycardia and clammy New LBP and neck pain Left calcaneal osteoarthritis Recently: Left calcaneal osteomyelitis, septic bursitis left heel w I/D 01/26/22, candidemia albicans 01/21/22 TV endocarditis GIANFRANCO 01/24/22 treated w fluconazole Septic pulm emboli from MRSA septicemia 12/13/21 allergy to vanco w recurrent serotonin syndrome. Was planned for a repeat CT chest 03/05 but went to fdc Allergy to PNC as a child, but tolerates amox and zosyn Vancomycin allergy Discussion / summary of stay / plan of care Recommendations Elevated CRP and procalcitonin Transthoracic echo 06/16-positive for tricuspid valve vegetations-it was present in previous echo on 02/14/22-size has increased BC 06/13 -06/15: No growth Empirically on Fluconazole and cefepime, pending cultures Get MRI C spine and LS spine look for a site of seeding Infection Control Recommendations [place] Precautions Contact Isolation Antimicrobial Stewardship Recommendations Simplification of therapy Targeted therapy History of Present Illness: Initial history: Tip Ansari is a 42 y.o.-year-old male known to me for a past hx of drug use and Left calcaneal osteomyelitis, septic bursitis left heel w I/D 01/26/22, candidemia albicans 01/21/22 TV endocarditis GIANFRANCO 01/24/22 treated w fluconazole Septic pulm emboli from MRSA septicemia 12/13/21 allergy to vanco w recurrent serotonin syndrome. Was planned for a repeat CT chest 03/05 but went to fdc due to a IVDU relapse 05/06/22 Called from fdc 06/15 for chills headaches getting worse and some LGF - sent to [facility] and seen now in ER - minimal cough and on off hemoptysis - but clammy tachycardic and looks ill - no SOB no chest pain Neck pain and headache x few weeks Lower back pain x [address] chest showed many new septic pulm emboli. WBc normal CRP procal pend BC pend Interval changes 06/16/2022 Patient Vitals for the past 8 hrs: BP Temp Temp src Pulse Resp SpO2 Weight 06/16/22 1033 106/67 97.7 F (36.5 C) Oral 100 20 95 % -- 06/16/22 0910 98/65 97.8 F (36.6 C) Oral (!) 110 (!) 31 95 % -- 06/16/22 0457 -- -- -- -- -- -- 178 lb 12.7 oz (81.1 kg) No acute event overnight. T-max 98.7 Patient states he is feeling better-no shortness of breath or cough Reports feeling tired. Transthoracic echo 06/16-positive for tricuspid valve vegetations-it was present in previous echo on 02/14/22-size has increased Procalcitonin 0.2, WBC 10.2, ESR and CRP raised Blood and urine culture are still negative Summary of relevant labs: Labs: W10 Creat normal LFT normal CRP-16.4 ESR-35 proical-0.2 Micro: BC 06/15 BC 8/3 Urine culture 06/16 Imaging: Transthoracic echo 06/16-positive for tricuspid valve vegetations-it was present in previous echo on 02/14/22-size has increased CT chest 06/15 -personal review: multifocal new septic emboli I have personally reviewed the past medical history, past surgical history, medications, social history, and family history, and I haveupdated the database accordingly. Allergies: Pcn [penicillins] and Vancomycin Review of Systems: Review of Systems Constitutional: Positive for fatigue. Negative for activity change and chills. HENT: Negative for congestion. Eyes: Negative for discharge. Respiratory: Negative for apnea. Gastrointestinal: Negative for abdominal distention. Endocrine: Negative for cold intolerance. Genitourinary: Negative for dysuria. Musculoskeletal: Positive for back pain and neck pain. Negative for arthralgias. Skin: Negative for color change. Neurological: Positive for weakness. Negative for dizziness. Hematological: Negative for adenopathy. Psychiatric/Behavioral: Negative for agitation. Physical Examination : Physical Exam Constitutional: Appearance: Normal appearance. He is ill-appearing. HENT: Head: Normocephalic and atraumatic. Nose: Nose normal. Mouth/Throat: Mouth: Mucous membranes are moist. Eyes: General: No scleral icterus. Conjunctiva/sclera: Conjunctivae normal. Cardiovascular: Rate and Rhythm: Regular rhythm. Tachycardia present. Heart sounds: Normal heart sounds. No murmur heard. Pulmonary: Effort: No respiratory distress. Breath sounds: Normal breath sounds. Abdominal: General: There is no distension. Palpations: There is no mass. Tenderness: There is no abdominal tenderness. Hernia: No hernia is present. Genitourinary: Comments: No ortiz Musculoskeletal: General: No swelling or deformity. Cervical back: Neck supple. No rigidity. Skin: Coloration: Skin is not jaundiced. Findings: No bruising. Neurological: General: No focal deficit present. Mental Status: He is alert and oriented to person, place, and time. Psychiatric: Mood and Affect: Mood normal. Thought Content: Thought content normal. Past Medical History: Past Medical History: Diagnosis Date Abscess 2020 left arm + MRSA Chronic hepatitis C without hepatic coma (HCC) COPD (chronic obstructive pulmonary disease) (HCC) Depression Drug addiction (HCC) heroin Past Surgical History: Past Surgical History: Procedure Laterality Date ABSCESS DRAINAGE Left 2019 arm APPENDECTOMY FINGER SURGERY Right 5 th finger tendon repair FOOT DEBRIDEMENT Left 01/26/2022 INCISION AND DRAINAGE, BONE LEFT CALCANEOUS performed by Tip Grewal DPM at [facility] OR FOOT SURGERY Left 01/26/2022 INCISION AND DRAINAGE, BONE LEFT CALCANEOUS (Left Foot) PICC INSERTION VASCULAR ACCESS TEAM 01/25/2022 TYMPANOSTOMY TUBE PLACEMENT Bilateral Medications: sodium chloride flush 5-40 mL IntraVENous 2 times per day enoxaparin 40 mg SubCUTAneous Daily sodium chloride flush 5-40 mL IntraVENous 2 times per day sodium chloride flush 5-40 mL IntraVENous 2 times per day fluconazole 400 mg IntraVENous Q24H cefepime 2,000 mg IntraVENous Q12H Social History: Social History Socioeconomic History Marital status: Single Spouse name: Not on file Number of children: Not on file Years of education: Not on file Highest education level: Not on file Occupational History Not on file Tobacco Use Smoking status: Former Smokeless tobacco: Never Substance and Sexual Activity Alcohol use: No Drug use: Yes Types: Cocaine, Opiates , Marijuana ([place]), Methamphetamines (Crystal Meth) Comment: last use 05/05 Sexual activity: Not on file Other Topics Concern Not on file Social History Narrative Not on file Social Determinants of Health Financial Resource Strain: Not on file Food Insecurity: Not on file Transportation Needs: Not on file Physical Activity: Not on file Stress: Not on file Social Connections: Not on file Intimate Partner Violence: Not on file Housing Stability: Not on file Family History: Family History Problem Relation Age of Onset Cancer Mother skin No Known Problems Father Diabetes Maternal Grandmother Diabetes Maternal Grandfather Medical Decision Making: I have independently reviewed/ordered the following labs: CBC with Differential: Recent Labs 06/13/22 1235 06/15/22 1737 WBC 11.7* 10.5 HGB 12.2* 12.9* HCT 38.5* 38.8* PLT 181 224 LYMPHOPCT 9* 11* MONOPCT 8 10 BMP: Recent Labs 06/15/22 1737 06/16/22 0842 NA 136 139 K 4.2 3.6* CL 101 107 CO2 24 22 BUN 15 9 CREATININE 0.80 0.72 Hepatic Function Panel: Recent Labs 06/15/22 1847 06/16/22 0842 PROT 7.5 7.0 LABALBU 3.4* 3.1* BILIDIR 0.15 -- IBILI 0.26 -- BILITOT 0.41 0.35 ALKPHOS 85 76 ALT 22 21 AST 16 15 No results for input(s): RPR in the last 72 hours. No results for input(s): HIV in the last 72 hours. No results for input(s): BC in the last 72 hours. Lab Results Component Value Date/Time CREATININE 0.72 06/16/2022 08:42 AM GLUCOSE 96 06/16/2022 08:42 AM Detailed results: Thank you for allowing us to participate in the care of this patient.Please call with questions. This note is created with the assistance of a speech recognition program. While intending to generate adocument that actually reflects the content of the visit, the document can still have some errors including those of syntax and sound a like substitutions which may escape proof reading. It such instances, actual meaningcan be extrapolated by contextual diversion. Joey Saenz MD Office: [facility] / office [phone] ATTESTATION: I have discussed the case, including pertinent history and exam findings with the residents and students. I have seen and examined the patient and the hall elements of the encounter have been performed by me. I was present when the student obtained his information or examined the patient. I have reviewed the laboratory data, other diagnostic studies and discussed them with the residents. I have updated the medical record where necessary. I agree with the assessment, plan and orders as documented by the resident/ student. Tariq Dumont MD. Cardiac Echo done in the Echo Lab documented in this encounter [facility] [place] Phone: 05-08-2022 History of Present illness Narrative Patient given discharge instructions and follow up appointments and cam boot instructions. Patient verbalized understanding. Images from the original note were not included. [facility] Office: [phone] Mikie Rodriguez DO, Theo Lerma DO, Stuart Natarajan DO, Harpal Tran DO, Prashanth Sadler MD, Deana Raza MD, Florencia Canela MD, Tess Ford MD, Yuliana Saenz MD, Leodan Mak MD, Marimar Ren MD, Kyle Broussard DO, Juan Driver MD, Sophia Agustin DO, Jodi Bain MD, Palomo Drummond MD, Johann Rodriguez DO, Elvia Torres MD, Alberto Perez MD, Fabricio Syed DO, Radha Avila MD, Lyle Woods MD, Teresa Quintero, MARINE EQUIPMENT SALES ENGINEER, Tika Hernandez CNP, Abdirahman Bella, MARINE EQUIPMENT SALES ENGINEER, Leslie Rao, MARINE EQUIPMENT SALES ENGINEER, Ro Bernard, MARINE EQUIPMENT SALES ENGINEER, Carter Charles, MARINE EQUIPMENT SALES ENGINEER, KO HunterC, Eli Fu, DNP, Keri Walker, MARINE EQUIPMENT SALES ENGINEER, Sherrie Rea, MARINE EQUIPMENT SALES ENGINEER, Deysi Pablo, MARINE EQUIPMENT SALES ENGINEER, Cathleen Moran, HAIR BLENDER, Razia Figueroa, DNP, Madalyn Julien, MARINE EQUIPMENT SALES ENGINEER, Shelli Menon, MARINE EQUIPMENT SALES ENGINEER, Amie Richardson, MARINE EQUIPMENT SALES ENGINEER IN-PATIENT SERVICE [facility] Progress Note 05/08/2022 10:06 AM Name: Tip Ansari Acct: [id number] Room: [address] [place] [address] Day: 2 Admit Date: 05/06/2022 4:40 AM PCP: No primary care provider on file. Code Status: Full Code Subjective: C/C: Left ankle pain and swelling Interval History Status: Brief History: As documented in the medical record: Tip Ansari is a 42 y.o. who presents to our hospital for swelling and redness in his ankle that has been getting worse for the last two months. He has difficulty walking, swelling, and pain.He is feeling flushed and sweaty in addition to feeling cold. He is concerned that he is withdrawing. Last used yesterday. He typically injects heroine and fentanyl into his arm. He is also complaining of a runny nose. He has not noticed any discharge in his foot. The redness is unchanged for the last few months. Pt also had stiches placed by podiatry several months ago that was removed last night in ED. The intitial assessment and plan included: Hospital Problems Last Modified POA * (Principal) Cellulitis of left lower extremity 05/06/2022 Yes Opiate withdrawal (HCC) 05/06/2022 Yes IV drug abuse (HCC) 05/06/2022 Yes Heroin abuse (HCC) 05/06/2022 Yes Normocytic normochromic anemia 05/06/2022 Yes Acute hypokalemia 05/06/2022 Yes Patient status inpatient in the Medical ICU 1. Cellulitis left heel: Continue tigecycline, ID consulted given multiple antibiotic allergies in the past. Consult podiatry for evaluation of septic bursitis. Check MRI for achillis rupture , continue tigecycline 2. Signs of Opiate withdrawal:Ativan, phenergan. Will see if suboxone available inpt, if not will need to work on getting it arranged outpt. 3. Hypokalemia: Replace potassium 4. Hyponatremia: Mild, monitor. Check urine studies if abnormal 5. IV drug abuse with history endocarditis: last used 05/05. needs follow up with ID. They are consulted. 6. Normocytic normochromic anemia: likely inflammatory. Transfuse prn for symptomatic anemia or Hgb <7 7. PTOT 8. DVT ppx 9. Labs, imaging reviewed Ankle MRI: Impression: 1. No evidence of acute osteomyelitis. Irregularity along the posterosuperior process of the calcaneus is likely postsurgical. 2. Partial-thickness tearing of the insertional Achilles tendon involving approximately 1/3 of the tendon thickness. Moderate to advanced Achilles tendinopathy. Past Medical History: has a past medical history of Abscess, Chronic hepatitis C without hepatic coma ([facility]), COPD (chronic obstructive pulmonary disease) ([facility]), Depression, and Drug addiction ([facility]). Social History: reports that he has quit smoking. He has never used smokeless tobacco. He reports current drug use. Drugs: Cocaine, Opiates , Marijuana ([place]), and Methamphetamines (Crystal Meth). He reports that he does not drink alcohol. Family History: Family History Problem Relation Age of Onset Cancer Mother skin No Known Problems Father Diabetes Maternal Grandmother Diabetes Maternal Grandfather Review of Systems: Review of Systems Constitutional: Positive for activity change (Decreased), appetite change (Diminished) and diaphoresis. Reporting malaise Respiratory: Positive for cough (Chronic, occasional white sputum production). Negative for shortness of breath. Cardiovascular: Negative for chest pain and palpitations. Gastrointestinal: Positive for nausea. Negative for abdominal pain and vomiting. Genitourinary: Negative for flank pain and hematuria. Musculoskeletal: Foot pain controlled Reporting pain in the left axilla Physical Examination: Vitals BP 116/83 Pulse (!) 104 Temp 98.6 F (37 C) (Oral) Resp 16 Ht 6' 1 (1.854 m) Wt 162 lb 9.6 oz (73.8 kg) SpO2 99% BMI 21.45 kg/m Temp (24hrs), Av.7 F (37.1 C), Min:98.6 F (37 C), Max:98.7 F (37.1 C) No results for input(s): POCGLU in the last 72 hours. Physical Exam Vitals reviewed. Constitutional: General: He is not in acute distress. Appearance: He is ill-appearing. He is not diaphoretic. HENT: Head: Normocephalic. Nose: Nose normal. Eyes: General: No scleral icterus. Conjunctiva/sclera: Conjunctivae normal. Neck: Trachea: No tracheal deviation. Cardiovascular: Rate and Rhythm: Normal rate and regular rhythm. Pulmonary: Effort: Pulmonary effort is normal. No respiratory distress. Breath sounds: Normal breath sounds. No wheezing or rales. Chest: Chest wall: No tenderness. Abdominal: General: There is no distension. Palpations: Abdomen is soft. Tenderness: There is no abdominal tenderness. Musculoskeletal: General: No tenderness. Cervical back: Neck supple. Comments: No left axillary adenopathy noted Left ankle wrapped Skin: General: Skin is warm and dry. Medications: Allergies: Allergies Allergen Reactions Pcn [Penicillins] Anaphylaxis Vancomycin Other (See Comments) Fever and hives chest - despite very slow infusion Current Meds: Scheduled Meds: sodium chloride flush 5-40 mL IntraVENous 2 times per day enoxaparin 40 mg SubCUTAneous Daily Continuous Infusions: sodium chloride PRN Meds: promethazine, sodium chloride flush, sodium chloride, potassium chloride OR potassium alternative oral replacement OR potassium chloride, magnesium sulfate, ondansetron OR ondansetron, polyethylene glycol, acetaminophen OR acetaminophen, LORazepam Data: I/O (24Hr): Intake/Output Summary (Last 24 hours) at 05/08/2022 1006 Last data filed at 05/08/2022 0730 Gross per 24 hour Intake Output 1600 ml Net -1600 ml Labs: Hematology: Recent Labs 05/05/22201605/06/22 1859 WBC 13.5* -- RBC 4.07* -- HGB 10.6* -- HCT 33.7* -- MCV 82.8 -- MCH 26.0 -- MCHC 31.5 -- RDW 15.7* -- PLT 196 -- MPV 8.9 -- SEDRATE -- 55* CRP -- 36.1* Chemistry: Recent Labs 05/05/22201605/07/22 0708 NA 134* 137 K 3.6* 4.2 CL 100 105 CO2 25 21 GLUCOSE 111* 87 BUN 7 16 CREATININE 0.72 0.62* ANIONGAP 9 11 LABGLOM >60 >60 GFRAA >60 >60 CALCIUM 9.1 8.9 Recent Labs 05/05/222016 PROT 7.9 LABALBU 3.4* AST 15 ALT 17 ALKPHOS 82 BILITOT 0.53 ABG: Lab Results Component Value Date PHART 7.380 12/16/2020 [id number] 44.5 12/16/2020 PO2ART 94.4 12/16/2020 [id number] 25.7 12/16/2020 NBEA NOT REPORTED 12/16/2020 PBEA 0.3 12/16/2020 [id number] 97.1 12/16/2020 FIO2 28 12/16/2020 Lab Results Component Value Date/Time SPECIAL 20ML LEFT HAND 05/05/2022 08:17 PM Lab Results Component Value Date/Time CULTURE NO GROWTH 3 DAYS 05/05/2022 08:17 PM Radiology: CT ANKLE LEFT W CONTRAST Result Date: 05/05/2022 Chronic erosive changes of the posterosuperior aspect of the calcaneus at the Achilles tendon insertion with superimposed acute erosions not excluded. 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 These findings may be sterile although septic bursitis and osteomyelitis cannot be excluded. No soft tissue gas. MRI ANKLE LEFT WO CONTRAST Result Date: 05/07/2022 1. No evidence of acute osteomyelitis. Irregularity along the posterosuperior process of the calcaneus is likely postsurgical. 2. Partial-thickness tearing of the insertional Achilles tendon involving approximately 1/3 of the tendon thickness. Moderate to advanced Achilles tendinopathy. Assessment: Primary Problem Cellulitis of left lower extremity Active Hospital Problems Diagnosis Date Noted Opiate withdrawal (HCC) [F11.23] 01/28/2022 Priority: High Achilles tendinitis of left lower extremity [M76.62] 05/07/2022 Priority: Medium Tenosynovitis of left ankle [M65.9] Priority: Medium Cellulitis of left lower extremity [L03.116] 05/06/2022 Priority: Medium IV drug abuse (HCC) [F19.10] 05/06/2022 Priority: Medium Acute hypokalemia [E87.6] 12/14/2021 Normocytic normochromic anemia [D64.9] 12/14/2021 Heroin abuse (HCC) [F11.10] 01/28/2021 Plan: Antibiotics per Infectious Disease service Podiatry evaluation in progress Detox Social service consult Electrolyte replacement as needed Pain management Encourage compliance Anemia w/u on outpatient basis is suggested DVT prophylaxis Can be DC today IP CONSULT TO INFECTIOUS DISEASES IP CONSULT TO PODIATRY INPATIENT CONSULT TO ELECTRONICS TECHNICIAN APPRENTICE CHEMICAL DEPENDENCY REFERRAL FOR SOCIAL SERVICE CONSULT Alberto Perez MD 05/08/2022 10:06 AM Images from the original note were not included. [facility] Office: [phone] Mikie Rodriguez DO, Theo Lerma DO, Stuart Natarajan DO, Harpal Tran DO, Prashanth Sadler MD, Deana Raza MD, Florencia Canela MD, Tess Ford MD, Yuliana Saenz MD, Leodan Mak MD, Marimar Ren MD, Kyle Broussard DO, Juan Driver MD, Sophia Agustin DO, Jodi Bain MD, Palomo Drummond MD, Johann Rodriguez DO, Elvia Torres MD, Alberto Perez MD, Fabricio Syed DO, Radha Avila MD, Lyle Woods MD, Teresa Quintero PABLO, Tika Hernandez CNP, Abdirahman Bella, PABLO, Leslie Rao, PABLO, Ro Bernard, PABLO, Carter Charles CNP, Mckayla Abraham PA-C, Eli Fu, FÉLIX, Keri Walker, PABLO, Sherrie Rea, PABLO, Deysi Pablo, PABLO, Cathleen Moran, HAIR BLENDER, Razia Figueroa, FÉLIX, Madalyn Julien, PABLO, Shelli Menon CNP, Amie Richardson, PABLO IN-PATIENT SERVICE [facility] Progress Note 05/07/2022 6:09 PM Name: Tip Ansari Acct: [id number] Room: [address] [place] [address] Day: 1 Admit Date: 05/06/2022 4:40 AM PCP: No primary care provider on file. Code Status: Full Code Subjective: C/C: Left ankle pain and swelling Interval History Status: Malaise Withdrawing Nausea Not eating well Sweats Data Base Updates: Dslwizq39wx/dL HYE40wr/dL CREATININE0.62 Low mg/dL Calcium8.9mg/dL Jdtarh932qnhq/L Potassium4.2 Brief History: As documented in the medical record: Tip Ansari is a 42 y.o. who presents to our hospital for swelling and redness in his ankle that has been getting worse for the last two months. He has difficulty walking, swelling, and pain.He is feeling flushed and sweaty in addition to feeling cold. He is concerned that he is withdrawing. Last used yesterday. He typically injects heroine and fentanyl into his arm. He is also complaining of a runny nose. He has not noticed any discharge in his foot. The redness is unchanged for the last few months. Pt also had stiches placed by podiatry several months ago that was removed last night in ED. The intitial assessment and plan included: Hospital Problems Last Modified POA * (Principal) Cellulitis of left lower extremity 05/06/2022 Yes Opiate withdrawal (HCC) 05/06/2022 Yes IV drug abuse (HCC) 05/06/2022 Yes Heroin abuse (HCC) 05/06/2022 Yes Normocytic normochromic anemia 05/06/2022 Yes Acute hypokalemia 05/06/2022 Yes Patient status inpatient in the Medical ICU 1. Cellulitis left heel: Continue tigecycline, ID consulted given multiple antibiotic allergies in the past. Consult podiatry for evaluation of septic bursitis. Check MRI for achillis rupture , continue tigecycline 2. Signs of Opiate withdrawal:Ativan, phenergan. Will see if suboxone available inpt, if not will need to work on getting it arranged outpt. 3. Hypokalemia: Replace potassium 4. Hyponatremia: Mild, monitor. Check urine studies if abnormal 5. IV drug abuse with history endocarditis: last used 05/05. needs follow up with ID. They are consulted. 6. Normocytic normochromic anemia: likely inflammatory. Transfuse prn for symptomatic anemia or Hgb <7 7. PTOT 8. DVT ppx 9. Labs, imaging reviewed Ankle MRI: Impression: 1. No evidence of acute osteomyelitis. Irregularity along the posterosuperior process of the calcaneus is likely postsurgical. 2. Partial-thickness tearing of the insertional Achilles tendon involving approximately 1/3 of the tendon thickness. Moderate to advanced Achilles tendinopathy. Past Medical History: has a past medical history of Abscess, Chronic hepatitis C without hepatic coma (HCC), COPD (chronic obstructive pulmonary disease) (HCC), Depression, and Drug addiction (HCC). Social History: reports that he has quit smoking. He has never used smokeless tobacco. He reports current drug use. Drugs: Cocaine, Opiates , Marijuana ([place]), and Methamphetamines (C[place]). He reports that he does not drink alcohol. Family History: Family History Problem Relation Age of Onset Cancer Mother skin No Known Problems Father Diabetes Maternal Grandmother Diabetes Maternal Grandfather Review of Systems: Review of Systems Constitutional: Positive for activity change (Decreased), appetite change (Diminished) and diaphoresis. Reporting malaise Respiratory: Positive for cough (Chronic, occasional white sputum production). Negative for shortness of breath. Cardiovascular: Negative for chest pain and palpitations. Gastrointestinal: Positive for nausea. Negative for abdominal pain and vomiting. Genitourinary: Negative for flank pain and hematuria. Musculoskeletal: Foot pain controlled Reporting pain in the left axilla Physical Examination: Vitals BP 122/87 Pulse 95 Temp 97.1 F (36.2 C) (Oral) Resp 17 Ht 6' 1 (1.854 m) Wt 162 lb 9.6 oz (73.8 kg) SpO2 97% BMI 21.45 kg/m Temp (24hrs), Av.7 F (36.5 C), Min:97.1 F (36.2 C), Max:98.2 F (36.8 C) No results for input(s): POCGLU in the last 72 hours. Physical Exam Vitals reviewed. Constitutional: General: He is not in acute distress. Appearance: He is ill-appearing. He is not diaphoretic. HENT: Head: Normocephalic. Nose: Nose normal. Eyes: General: No scleral icterus. Conjunctiva/sclera: Conjunctivae normal. Neck: Trachea: No tracheal deviation. Cardiovascular: Rate and Rhythm: Normal rate and regular rhythm. Pulmonary: Effort: Pulmonary effort is normal. No respiratory distress. Breath sounds: Normal breath sounds. No wheezing or rales. Chest: Chest wall: No tenderness. Abdominal: General: There is no distension. Palpations: Abdomen is soft. Tenderness: There is no abdominal tenderness. Musculoskeletal: General: No tenderness. Cervical back: Neck supple. Comments: No left axillary adenopathy noted Left ankle wrapped Skin: General: Skin is warm and dry. Medications: Allergies: Allergies Allergen Reactions Pcn [Penicillins] Anaphylaxis Vancomycin Other (See Comments) Fever and hives chest - despite very slow infusion Current Meds: Scheduled Meds: sodium chloride flush 5-40 mL IntraVENous 2 times per day enoxaparin 40 mg SubCUTAneous Daily Continuous Infusions: sodium chloride PRN Meds: sodium chloride flush, sodium chloride, potassium chloride OR potassium alternative oral replacement OR potassium chloride, magnesium sulfate, ondansetron OR ondansetron, polyethylene glycol, acetaminophen OR acetaminophen, LORazepam Data: I/O (24Hr): Intake/Output Summary (Last 24 hours) at 05/07/2022 1809 Last data filed at 05/07/2022 0614 Gross per 24 hour Intake 1076 ml Output 1200 ml Net -124 ml Labs: Hematology: Recent Labs 05/05/22201605/06/22 1859 WBC 13.5* -- RBC 4.07* -- HGB 10.6* -- HCT 33.7* -- MCV 82.8 -- MCH 26.0 -- MCHC 31.5 -- RDW 15.7* -- PLT 196 -- MPV 8.9 -- SEDRATE -- 55* CRP -- 36.1* Chemistry: Recent Labs 05/05/22201605/07/22 0708 NA 134* 137 K 3.6* 4.2 CL 100 105 CO2 25 21 GLUCOSE 111* 87 BUN 7 16 CREATININE 0.72 0.62* ANIONGAP 9 11 LABGLOM >60 >60 GFRAA >60 >60 CALCIUM 9.1 8.9 Recent Labs 05/05/222016 PROT 7.9 LABALBU 3.4* AST 15 ALT 17 ALKPHOS 82 BILITOT 0.53 ABG: Lab Results Component Value Date PHART 7.380 12/16/2020 [id number] 44.5 12/16/2020 PO2ART 94.4 12/16/2020 [id number] 25.7 12/16/2020 NBEA NOT REPORTED 12/16/2020 PBEA 0.3 12/16/2020 [id number] 97.1 12/16/2020 FIO2 28 12/16/2020 Lab Results Component Value Date/Time SPECIAL 20ML LEFT HAND 05/05/2022 08:17 PM Lab Results Component Value Date/Time CULTURE NO GROWTH 2 DAYS 05/05/2022 08:17 PM Radiology: CT ANKLE LEFT W CONTRAST Result Date: 05/05/2022 Chronic erosive changes of the posterosuperior aspect of the calcaneus at the Achilles tendon insertion with superimposed acute erosions not excluded. 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 These findings may be sterile although septic bursitis and osteomyelitis cannot be excluded. No soft tissue gas. MRI ANKLE LEFT WO CONTRAST Result Date: 05/07/2022 1. No evidence of acute osteomyelitis. Irregularity along the posterosuperior process of the calcaneus is likely postsurgical. 2. Partial-thickness tearing of the insertional Achilles tendon involving approximately 1/3 of the tendon thickness. Moderate to advanced Achilles tendinopathy. Assessment: Primary Problem Cellulitis of left lower extremity Active Hospital Problems Diagnosis Date Noted Opiate withdrawal (HCC) [F11.23] 01/28/2022 Priority: High Achilles tendinitis of left lower extremity [M76.62] 05/07/2022 Priority: Medium Tenosynovitis of left ankle [M65.9] Priority: Medium Cellulitis of left lower extremity [L03.116] 05/06/2022 Priority: Medium IV drug abuse (HCC) [F19.10] 05/06/2022 Priority: Medium Acute hypokalemia [E87.6] 12/14/2021 Normocytic normochromic anemia [D64.9] 12/14/2021 Heroin abuse (HCC) [F11.10] 01/28/2021 Plan: Antibiotics per Infectious Disease service Podiatry evaluation in progress Detox Social service consult Electrolyte replacement as needed Pain management Encourage compliance Anemia w/u on outpatient basis is suggested DVT prophylaxis Patient to return to [facility]dc when stabilized IP CONSULT TO INFECTIOUS DISEASES IP CONSULT TO PODIATRY INPATIENT CONSULT TO ELECTRONICS TECHNICIAN APPRENTICE CHEMICAL DEPENDENCY REFERRAL FOR SOCIAL SERVICE CONSULT Theo Lerma DO 05/07/2022 6:09 PM Images from the original note were not included. [facility] - Progress Note Today's Date and Time: 05/07/2022, 4:15 PM Impression : Left ankle pain No active osteomyelitis Tendinitis of the Achilles tendon on the left side Possible withdrawal syndrome Prior history of left calcaneal osteomyelitis Previous history of partially torn left Achilles tendon with Achilles tendinitis Prior history of septic bursitis of the left heel. 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 Please call [phone] for appointment Medical Decision Making/Summary/Discussion:6/27/20 22 Infection Control Recommendations [place] Precautions Contact Isolation MRSA Antimicrobial Stewardship Recommendations Simplification of therapy Targeted therapy Restricted antimicrobial use Coordination of Outpatient Care: Estimated Length of IV antimicrobials: TBD Patient will need Midline Catheter Insertion: No Patient will need PICC line Insertion:No Patient will need: Home IV , Infusion Center, SNF, LTAC: TBD Patient will need outpatient wound care:Yes Chief complaint/reason for consultation: Concern for sepsis of the left ankle History of Present Illness: Tip Ansari is a 42 y.o.-year-old male who was initially admitted on 05/06/2022. Patient seen at the request of . INITIAL HISTORY: Patient known to our service from previous infections with MRSA endocarditis of the tricuspid valve with septic pulmonary emboli in December 2021. Also seen previously for Nathaniel fungemia and prior left calcaneal osteomyelitis. Patient apparently was sober for a period of time but has recently started using IV drugs again. Failed to follow-up with his warrant officer and the police brought him in to the [facility] ER. At that location the patient complained of redness, swelling and pain of the left ankle. He was transferred to [facility] because of concerns with recurrence of one of the previous infections and of drug withdrawal. CURRENT EVALUATION :05/07/2022 Afebrile VS stable Patient feels better No complaints other than ankle pain No new issues per RN X-rays reviewed. MRI 05-07-22: No acute osteomyelitis. Irregularity of posterosuperior process of the calcaneus is likely postsurgical. Partial-thickness tearing of the insertional Achilles tendon involving approximately 1/3 of the tendon thickness. Moderate to advanced Achilles tendinopathy. Ankle examined. Residual swelling but no fluctuance. Prior incision site healed. With MRI findings no antibiotics needed. He reports Lt axillary pain and difficulty lifting Lt arm. Exam normal. No adenopathy. No restriction of movement. Patient would like outpatient follow up with Dr Andrea Labs, X rays reviewed: 05/07/2022 BUN: 7 Cr: 0.72 WBC: 18.5 Hb: 10.6 Plat: 196 Cultures: Urine: 05/05/2022 no growth Blood: 05/05/2022 no growth x2 Sputum : Wound: CT left ankle: 05/05/2022: Chronic erosive changes of the posterior superior aspect of the calcaneus at the Achilles tendon insertion site. Acute erosions cannot be excluded. Suspected chronic partial tear of the Achilles tendon with fluid in the retrocalcaneal bursa. Discussed with patient, RITA BRIONES 05/06/2022 I have personally reviewed the past medical history, past surgical history, medications, social history, and family history, and I have updated the database accordingly. Past Medical History: Past Medical History: Diagnosis Date Abscess 2020 left arm + MRSA Chronic hepatitis C without hepatic coma (HCC) COPD (chronic obstructive pulmonary disease) (HCC) Depression Drug addiction (HCC) heroin Past Surgical History: Past Surgical History: Procedure Laterality Date ABSCESS DRAINAGE Left 2019 arm APPENDECTOMY FINGER SURGERY Right 5 th finger tendon repair FOOT DEBRIDEMENT Left 01/26/2022 INCISION AND DRAINAGE, BONE LEFT CALCANEOUS performed by Tip Grewal DPM at [facility] OR FOOT SURGERY Left 01/26/2022 INCISION AND DRAINAGE, BONE LEFT CALCANEOUS (Left Foot) PICC INSERTION VASCULAR ACCESS TEAM 01/25/2022 TYMPANOSTOMY TUBE PLACEMENT Bilateral Medications: sodium chloride flush 5-40 mL IntraVENous 2 times per day enoxaparin 40 mg SubCUTAneous Daily tigecycline (TYGACIL) IVPB 50 mg IntraVENous Q12H Social History: Social History Socioeconomic History Marital status: Single Spouse name: Not on file Number of children: Not on file Years of education: Not on file Highest education level: Not on file Occupational History Not on file Tobacco Use Smoking status: Former Smoker Smokeless tobacco: Never Used Substance and Sexual Activity Alcohol use: No Drug use: Yes Types: Cocaine, Opiates , Marijuana ([place]), Methamphetamines ([place]) Comment: last use 05/05 Sexual activity: Not on file Other Topics Concern Not on file Social History Narrative Not on file Social Determinants of Health Financial Resource Strain: Difficulty of Paying Living Expenses: Not on file Food Insecurity: Worried About Running Out of Food in the Last Year: Not on file Ran Out of Food in the Last Year: Not on file Transportation Needs: Lack of Transportation (Medical): Not on file Lack of Transportation (Non-Medical): Not on file Physical Activity: Days of Exercise per Week: Not on file Minutes of Exercise per Session: Not on file Stress: Feeling of Stress : Not on file Social Connections: Frequency of Communication with Friends and Family: Not on file Frequency of Social Gatherings with Friends and Family: Not on file Attends Bahai Services: Not on file Active Member of Clubs or Organizations: Not on file Attends Club or Organization Meetings: Not on file Marital Status: Not on file Intimate Partner Violence: Fear of Current or Ex-Partner: Not on file Emotionally Abused: Not on file Physically Abused: Not on file Sexually Abused: Not on file Housing Stability: Unable to Pay for Housing in the Last Year: Not on file Number of Places Lived in the Last Year: Not on file Unstable Housing in the Last Year: Not on file Family History: Family History Problem Relation Age of Onset Cancer Mother skin No Known Problems Father Diabetes Maternal Grandmother Diabetes Maternal Grandfather Allergies: Pcn [penicillins] and Vancomycin Review of Systems: Constitutional: No fevers or chills. No systemic complaints. Anxiety Head: No headaches Eyes: No double vision or blurry vision. No conjunctival inflammation. ENT: No sore throat or runny nose.. No hearing loss, tinnitus or vertigo. Cardiovascular: No chest pain or palpitations.No shortness of breath. No PENG Lung: No shortness of breath or cough. No sputum production Abdomen: No nausea, vomiting, diarrhea, or abdominal pain.. No cramps. Genitourinary: No increased urinary frequency, or dysuria. No hematuria. No suprapubic or CVA pain Musculoskeletal: No muscle aches or pains. No joint effusions, swelling or deformities. Reports left ankle swelling and pain Hematologic: No bleeding or bruising. Neurologic: No headache, weakness, numbness, or tingling. Integument: No rash, no ulcers. Psychiatric: No depression. Endocrine: No polyuria, no polydipsia, no polyphagia. Physical Examination : No data found. General Appearance: Awake, alert, and in no apparent distress Head: Normocephalic, no trauma Eyes: Pupils equal, round, reactive to light and accommodation; extraocular movements intact; sclera anicteric; conjunctivae pink. No embolic phenomena. ENT: Oropharynx clear, without erythema, exudate, or thrush. No tenderness of sinuses. Mouth/throat: mucosa pink and moist. No lesions. Dentition in good repair. Neck:Supple, without lymphadenopathy. Thyroid normal, No bruits. Pulmonary/Chest: Clear to auscultation, without wheezes, rales, or rhonchi. No dullness to percussion. Cardiovascular: Regular rate and rhythm without murmurs, rubs, or gallops. Abdomen: Soft, non tender. Bowel sounds normal. No organomegaly All four Extremities: No cyanosis, clubbing, edema, or effusions. Left ankle with swelling and pain Neurologic: No gross sensory or motor deficits. Skin: Warm and dry with good turgor.No signs of peripheral arterial or venous insufficiency. No ulcerations. No open wounds. Medical Decision Making -Laboratory: I have independently reviewed/ordered the following labs: CBC with Differential: Recent Labs 05/05/222016 WBC 13.5* HGB 10.6* HCT 33.7* PLT 196 LYMPHOPCT 7* MONOPCT 5 BMP: Recent Labs 05/05/22201605/07/22 0708 NA 134* 137 K 3.6* 4.2 CL 100 105 CO2 25 21 BUN 7 16 CREATININE 0.72 0.62* Hepatic Function Panel: Recent Labs 05/05/222016 PROT 7.9 LABALBU 3.4* BILITOT 0.53 ALKPHOS 82 ALT 17 AST 15 No results for input(s): RPR in the last 72 hours. No results for input(s): HIV in the last 72 hours. No results for input(s): BC in the last 72 hours. Lab Results Component Value Date MUCUS TRACE 05/05/2022 RBC 4.07 05/05/2022 WBC 13.5 05/05/2022 TURBIDITY Clear 05/05/2022 Lab Results Component Value Date CREATININE 0.62 05/07/2022 GLUCOSE 87 05/07/2022 Medical Decision Making-Imaging: EXAMINATION: CT OF THE LEFT ANKLE WITH CONTRAST 05/05/2022 8:48 pm TECHNIQUE: CT of the left ankle was performed with the administration of intravenous contrast. Multiplanar reformatted images are provided for review. Automated exposure control, iterative reconstruction, and/or weight based adjustment of the mA/kV was utilized to reduce the radiation dose to as low as reasonably achievable. COMPARISON: MRI left ankle 01/23/2022. Left calcaneus radiographs 01/21/2022. HISTORY ORDERING SYSTEM PROVIDED HISTORY: previous fluid collection along achilles tendon and h/o calcaneus osteo. IVDU TECHNOLOGIST PROVIDED HISTORY: previous fluid collection along achilles tendon and h/o calcaneus osteo. IVDU Decision Support Exception - unselect if not a suspected or confirmed emergency medical condition->Emergency Medical Condition (MA) FINDINGS: Bones: Chronic erosive changes along the posterosuperior aspect of the calcaneus. Superimposed acute erosions not excluded. No fracture or dislocation. No suspicious lytic or blastic osseous lesion. Soft Tissue: Distal Achilles tendon thickening and likely partial tear. Questionable fluid in the retrocalcaneal bursa. Adjacent stranding in the subcutaneous fat and Hoffa's fat pad. No soft tissue gas. Joint: No syndesmotic widening. The ankle mortise is intact. The tibial plafond and talar dome are normal in appearance. A large os trigonum is seen with mild degenerative changes at its synchondrosis. The subtalar joint is normal in appearance. The talonavicular and calcaneocuboid joints are unremarkable. The visualized aspects of the midfoot are unremarkable. Impression Chronic erosive changes of the posterosuperior aspect of the calcaneus at the Achilles tendon insertion with superimposed acute erosions not excluded. 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 These findings may be sterile although septic bursitis and osteomyelitis cannot be excluded. No soft tissue gas. Medical Decision [id number]: Medical Decision Making-Other: Note: Labs, medications, radiologic studies were reviewed with personal review of films Large amounts of data were reviewed Discussed with nursing Staff, account planner Infection Control and Prevention measures reviewed All prior entries were reviewed Administer medications as ordered Prognosis: Fair Discharge planning reviewed Follow up as outpatient. Thank you for allowing us to participate in the care of this patient. Please call with questions. Tariq Dumont MD Pager: - Office: Images from the original note were not included. Progress Note Podiatric Medicine and Surgery Subjective CC: left heel pain Patient seen and examined at bedside. No acute events overnight. Afebrile, vital signs stable Reports intermittent pain to left heel HPI : Tip Ansari is a 42 y.o. male seen at [facility] for left heel pain. Patient is well known to podiatry service however was lost to follow up since last hospital admission. Patient underwent incision and drainage of left heel on 01/20/22 for abscess and osteomyelitis of left calcaneus. He states he has had intermittent pain out of proportion and swelling to left heel over the past several weeks. CT left ankle was obtained in ER showing possible erosive changes to calcaneus. Patient denies any trauma to the area, denies any N/V/F/SOB/CP. PCP is No primary care provider on file. ROS: Denies N/V/F/C/SOB/CP. Otherwise negative except at stated in the HPI. Medications: Scheduled Meds: sodium chloride flush 5-40 mL IntraVENous 2 times per day enoxaparin 40 mg SubCUTAneous Daily tigecycline (TYGACIL) IVPB 50 mg IntraVENous Q12H Continuous Infusions: sodium chloride PRN Meds:sodium chloride flush, sodium chloride, potassium chloride OR potassium alternative oral replacement OR potassium chloride, magnesium sulfate, ondansetron OR ondansetron, polyethylene glycol, acetaminophen OR acetaminophen, LORazepam Objective Vitals: Patient Vitals for the past 8 hrs: BP Temp Temp src Pulse Resp SpO2 Weight 05/07/22 0744 122/87 97.1 F (36.2 C) Oral 95 17 97 % 05/07/22 0505 162 lb 9.6 oz (73.8 kg) Average, Min, and Max for last 24 hours Vitals: TEMPERATURE: Temp Av.7 F (36.5 C) Min: 97.1 F (36.2 C) Max: 98.2 F (36.8 C) RESPIRATIONS RANGE: Resp Av.5 Min: 16 Max: 17 PULSE RANGE: Pulse Av.5 Min: 92 Max: 95 BLOOD PRESSURE RANGE: Systolic (24hrs), Av , Min:122 , Max:139 ; Diastolic (24hrs), Av, Min:87, Max:96 PULSE OXIMETRY RANGE: SpO2 Av % Min: 97 % Max: 97 % I/O last 3 completed shifts: In: 1076 [P.O.:620; I.V.:35; IV Piggyback:421] Out: 1200 [Urine:1200] CBC: Recent Labs 05/05/22201605/06/22 1859 WBC 13.5* -- HGB 10.6* -- HCT 33.7* -- PLT 196 -- CRP -- 36.1* BMP: Recent Labs 05/05/22201605/07/22 0708 NA 134* 137 K 3.6* 4.2 CL 100 105 CO2 25 21 BUN 7 16 CREATININE 0.72 0.62* GLUCOSE 111* 87 CALCIUM 9.1 8.9 Coags: Recent Labs 05/05/222016 PROT 7.9 Lab Results Component Value Date SEDRATE 55 (H) 05/06/2022 Recent Labs 05/06/22 1859 CRP 36.1* Lower Extremity Physical Exam: Vascular: DP and PT pulses are palpable. CFT <4 seconds to all digits. Hair growth is wnl to the level of the digits. Mild nonpitting edema localized to Achilles insertion, left heel. Neuro: Saph/sural/SP/DP/plantar sensation intact to light touch. Musculoskeletal: Muscle strength is decreased ROM , adequate strength to plantarflexion and dorsiflexion of left ankle. Tenderness to palpation of insertion of Achilles tendon. Gross deformity is absent. Dermatologic: Partial thickness ulcer #1 located posterior Achilles insertion and measures approximately 1.0 cm x 1.0 cm x 0.3 cm. Base is granular. Periwound skin is hyperkeratotic. Minimal serous drainage noted with no associated mal odor. Erythema localized to Achilles insertion site with mild associated increase in warmth. Does not probe to bone, sinus track, or undermine. No fluctuance, crepitus, or induration. Clinical Images: Imaging: MRI ANKLE LEFT WO CONTRAST Preliminary Result 1. No evidence of acute osteomyelitis. Irregularity along the posterosuperior process of the calcaneus is likely postsurgical. 2. Partial-thickness tearing of the insertional Achilles tendon involving approximately 1/3 of the tendon thickness. Moderate to advanced Achilles tendinopathy. Cultures: None Assessment Tip Ansari is a 42 y.o. male with 1. Cellulitis, left heel 2. Achilles tendinitis, left 3. IV drug abuse Principal Problem: Cellulitis of left lower extremity Active Problems: Opiate withdrawal (HCC) IV drug abuse (HCC) Heroin abuse (HCC) Normocytic normochromic anemia Acute hypokalemia Resolved Problems: * No resolved hospital problems. * Plan Patient examined and evaluated at bedside Treatment options discussed in detail with the patient CT left ankle reviewed - possible acute on chronic erosive changes to calcaneus with possible Achilles rupture. Soft tissue assessment limited on CT MRI left ankle reviewed, findings consistent with partial tear of Achilles tendon, no acute osseous abnormalities or soft tissue gas. No acute surgical intervention on podiatry standpoint, recommend conservative therapy with CAM walker boot to left lower extremity. Patient relays understanding Patient is stable for discharge on podiatry standpoint Rx Cam boot IV tigecycline, appreciate ID recommendations WBAT to Left lower extremity Dressing intact to Left foot: ABD, Kerlix, Alireza bandage Discussed with Dr. Aissatou Cordova DPM Podiatric Medicine & Surgery 05/07/2022 at 12:34 PM documented in this encounter [employer] Work Phone: 05-07-2022 Hospital Discharge instructions Jason Sunshine RN - 05/07/2022 4:29 PM EDT As to Jason Sunshine RN - 05/07/2022 4:29 PM EDT Good nutrition is important when healing from an illness, injury, or surgery. Follow any nutrition recommendations given to you during your hospital stay. If you were given an oral nutrition supplement while in the hospital, continue to take this supplement at home. You can take it with meals, in-between meals, and/or before bedtime. These supplements can be purchased at most local grocery stores, pharmacies, and chain [employer]-stores. If you have any questions about your diet or nutrition, call the hospital and ask for the dietitian. regular Diane Cordova DPM - 05/08/2022 11:19 AM EDT Continuity of Care Form Patient Name: Tip Ansari : 1980 Admit date: 05/06/2022 Discharge date: Code Status Order: Full Code Advance Directives: Admitting Physician: No admitting provider for patient encounter. PCP: No primary care provider on file. Discharging Nurse: Discharging Hospital Unit/Room#: 0240/0240-01 Discharging Unit Phone Number: Emergency Contact: Extended Emergency Contact Information Primary Emergency Contact: Vince Ansaria Address: [place] [address] Relation: Parent Secondary Emergency Contact: yari jaida Mobile Relation: Aunt/Uncle Past Surgical History: Past Surgical History: Procedure Laterality Date ABSCESS DRAINAGE Left 2019 arm APPENDECTOMY FINGER SURGERY Right 5 th finger tendon repair FOOT DEBRIDEMENT Left 01/26/2022 INCISION AND DRAINAGE, BONE LEFT CALCANEOUS performed by Tip Grewal DPM at [facility] OR FOOT SURGERY Left 01/26/2022 INCISION AND DRAINAGE, BONE LEFT CALCANEOUS (Left Foot) PICC INSERTION VASCULAR ACCESS TEAM 01/25/2022 TYMPANOSTOMY TUBE PLACEMENT Bilateral Immunization History: There is no immunization history on file for this patient. 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 I33.0, 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[facility]) M00.061 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 Moderate tricuspid regurgitation I07.1 Hyperkalemia E87.5 Endocarditis I38 Sepsis ([facility]) A41.9 Staphylococcal arthritis of left ankle ([facility]) M00.072 Hyperglycemia R73.9 Sepsis due to Nathaniel species without acute organ dysfunction ([facility]) B37.7, R65.20 Sinus tachycardia R00.0 Septic bursitis of Achilles M71.10 Acute osteomyelitis of left calcaneus ([facility]) M86.172 Opiate withdrawal ([facility]) F11.23 Acute hematogenous osteomyelitis of left ankle ([facility]) M86.072 Cellulitis of left lower extremity L03.116 IV drug abuse ([facility]) F19.10 Tenosynovitis of left ankle M65.9 Achilles tendinitis of left lower extremity M76.62 Isolation/Infection: Isolation Contact Patient Infection Status Infection Onset Added Last Indicated Last Indicated By Review Planned Expiration Resolved Resolved By MRSA 12/13/21 12/15/21 12/16/21 Culture, Anaerobic and Aerobic Blood & Joint Fluid 12/2021 Resolved COVID-19 (Rule Out) 01/24/22 01/24/22 01/24/22 COVID-19, Rapid (Ordered) 01/24/22 Rule-Out Test Resulted COVID-19 (Rule Out) 01/20/22 01/20/22 01/20/22 COVID-19, Rapid (Ordered) 01/20/22 Rule-Out Test Resulted COVID-19 12/16/20 12/17/21 12/17/21 Palomo Barone RN 12/18/21 Elvia Lowry RN COVID-19 (Rule Out) 12/15/21 12/15/21 12/15/21 COVID-19, Rapid (Ordered) 12/17/21 Palomo Barone RN COVID-19 12/16/20 12/16/20 12/16/20 COVID-19, PCR 12/30/20 COVID-19 (Rule Out) 12/16/20 12/16/20 12/16/20 COVID-19, PCR (Ordered) 12/16/20 Rule-Out Test Resulted Nurse Assessment: Last Vital Signs: BP 116/83 Pulse (!) 104 Temp 98.6 F (37 C) (Oral) Resp 16 Ht 6' 1 (1.854 m) Wt 162 lb 9.6 oz (73.8 kg) SpO2 99% BMI 21.45 kg/m Last documented pain score (0-10 scale): Pain Level: 7 Last Weight: Wt Readings from Last 1 Encounters: 05/07/22 162 lb 9.6 oz (73.8 kg) Mental Status: {IP PT MENTAL STATUS:} IV Access: { CARLINE IV ACCESS:201767449} Nursing Mobility/ADLs: Walking {CHP DME ADLs:159340321} Transfer {CHP DME ADLs:658938545} Bathing {CHP DME ADLs:771650325} Dressing {CHP DME ADLs:376369289} Toileting {CHP DME ADLs:258164355} Feeding {CHP DME ADLs:667539468} Boat Rental Clerk {CHP DME ADLs:852526305} Med Delivery { CARLINE MED Delivery:709208925} Wound Care Documentation and Therapy: Wound 01/20/22 Ankle Left;Posterior (Active) Number of days: 107 Incision 01/26/22 Tibial Distal;Left;Posterior (Active) Number of days: 101 Elimination: Continence: Bowel: {YES / NO:} Bladder: {YES / NO:} Urinary Catheter: {Urinary Catheter:548523120} Colostomy/Ileostomy/Ileal Conduit: {YES / NO:} Date of Last BM: Intake/Output Summary (Last 24 hours) at 05/08/2022 1118 Last data filed at 05/08/2022 0730 Gross per 24 hour Intake -- Output 1600 ml Net -1600 ml I/O last 3 completed shifts: In: 1076 [P.O.:620; I.V.:35; IV Piggyback:421] Out: 2400 [Urine:2400] Safety Concerns: { CARLINE Safety Concerns:075134316} Impairments/Disabilities: {[facility] [place] Impairments/Disabilities:47669809 3} Nutrition Therapy: Current Nutrition Therapy: { CARLINE Diet List:237838156} Routes of Feeding: {CHP DME Other Feedings:137989257} Liquids: {Contracts Intern liquid thickness:48021} Daily Fluid Restriction: {CHP DME Yes amt example:480776415} Last Modified Barium Swallow with Video (Video Swallowing Test): {Done Not Done Date:} Treatments at the Time of Hospital Discharge: Respiratory Treatments: Oxygen Therapy: {Therapy; copd oxygen:62395} Ventilator: {[facility] Vent List:727145595} Rehab Therapies: {THERAPEUTIC INTERVENTION:0346366369} Weight Bearing Status/Restrictions: {MH CC Weight Bearin} Other Medical Equipment (for information only, NOT a DME order): {EQUIPMENT:556609348} Other Treatments: Patient's personal belongings (please select all that are sent with patient): {CHP DME Belongings:415390715} RN SIGNATURE: {Esignature:461552876} CASE MANAGEMENT/SOCIAL WORK SECTION Inpatient Status Date: Readmission Risk Assessment Score: Readmission Risk Risk of Unplanned Readmission: 20 Discharging to Facility/ Agency Name: Address: Phone: Fax: Dialysis Facility (if applicable) Name: Address: Dialysis Schedule: Phone: Fax: Centrifuge Separator Tender/Agriculture Instructor signature: {Esignature:387078124} PHYSICIAN SECTION Prognosis: {Prognosis:6559830936} Condition at Discharge: { Patient Condition:500791454} Rehab Potential (if transferring to Rehab): {Prognosis:6268213264} Recommended Labs or Other Treatments After Discharge: Partial weightbearing in CAM walker to left leg Physician Certification: I certify the above information and transfer of Tip Ansari is necessary for the continuing treatment of the diagnosis listed and that he requires {Admit to Appropriate Level of Care:34361} for {GREATER/LESS:814107599} 30 days. Update Admission H&P: {CHP DME Changes in HandP:840720502} PHYSICIAN SIGNATURE: {Esignature:881038518} Diane Cordova DPM - 05/08/2022 Partial weight bearing to left foot, Wear cam boot to left foot while out of bed. documented in this encounter [employer] Phone: 01-30-2022 History of Present illness Narrative Pt being discharged home with friend. Pt stated he called his chief program officer to inform them of discharge. Discharge instructions reviewed. Meds delivered via meds to bed. All belongings accounted for. All questions answered. Physical Therapy Facility/Department: [facility] CAR 2 Daily Treatment Note NAME: Tip Ansari : 1980 Date of Service: 01/30/2022 Discharge Recommendations: Patient would benefit from continued therapy after discharge PT Equipment Recommendations Equipment Needed: No Assessment Assessment: Pt seated in recliner chair, ambulated 150 ft x2 without AD and SBA, pt VS WNL, pt denied pain at this time. Pt will continue to benefit from inpatient PT, CTA for need when dc to [facility] Specific instructions for Next Treatment: Progress activity as indicated Clinical Presentation: evolving PT Education: Goals;PT Role;Energy Conservation;Home Exercise Program REQUIRES PT FOLLOW UP: Yes Activity Tolerance Activity Tolerance: Patient Tolerated treatment well Activity Tolerance: VS WNL Patient Diagnosis(es): The primary encounter diagnosis was Post-operative pain. Diagnoses of MRSA bacteremia, Moderate tricuspid regurgitation, Acute osteomyelitis of left calcaneus (HCC), Endocarditis of tricuspid valve, and Septic embolism (HCC) were also pertinent to this visit. has a past medical history of Abscess, Chronic hepatitis C without hepatic coma (HCC), COPD (chronic obstructive pulmonary disease) (HCC), Depression, and Drug addiction (HCC). has a past surgical history that includes Appendectomy; Abscess Drainage (Left, 2019); Finger surgery (Right); Tympanostomy tube placement (Bilateral); picc insertion vascular access team (01/25/2022); Foot surgery (Left, 01/26/2022); and Foot Debridement (Left, 01/26/2022). Restrictions Restrictions/Precautions Restrictions/Precautions: Fall Risk,General Precautions,Contact Precautions Required Braces or Orthoses?: Yes Left LE WBAT Left Lower Extremity Brace: Boot LLE Brace Type: cam boot Subjective General Chart Reviewed: Yes Additional Pertinent Hx: infective endocarditis Response To Previous Treatment: Patient with no complaints from previous session. Subjective Subjective: Pt awake and alert in RN and Pt agreement with PT treat, sitting in chair. General Comment Comments: Pt retired to chair, given call light Pain Screening Patient Currently in Pain: No Vital Signs Patient Currently in Pain: No Orientation Orientation Overall Orientation Status: Within Normal Limits Cognition Cognition Overall Cognitive Status: WNL Objective Bed mobility Bridging: Unable to assess Rolling to Left: Unable to assess Supine to Sit: Unable to assess Sit to Supine: Moderate assistance Scooting: Modified independent;Independent Transfers Sit to Stand: Stand by assistance Stand to sit: Stand by assistance Ambulation Ambulation?: Yes Ambulation 1 Surface: level tile Device: No Device Assistance: Stand by assistance Quality of Gait: normal gait with no LOB, Distance: 150 ft x2 Comments: Pt ambulated without AD and left boot, pt tolerated 150 ft x2 Ambulation 2 Surface - 2: level tile Device 2: No device Assistance 2: Stand by assistance Distance: 20 ft x2 Balance Posture: Good Sitting - Static: Good Sitting - Dynamic: Good Standing - Static: Good Standing - Dynamic: Fair;+ Comments: assessed without AD Exercises Comments: Seated LE exercise program: Long Arc Quads, hip abduction/adduction, heel/toe raises, and marches. Reps:15 AM-PAC Score AM-[facility] Inpatient Mobility Raw Score : 21 (01/30/221348) -[facility] Inpatient T-Scale Score : 50.25 (01/30/221348) Mobility Inpatient CMS 0-100% Score: 28.97 (01/30/221348) Mobility Inpatient CMS G-Code Modifier : CJ (01/30/221348) Goals Short term goals Time Frame for Short term goals: 14 visits Short term goal 1: Pt to ambulate 100 ft with least AD as indicated Short term goal 2: Pt to be independent with HEP to prevent further strength decline as tolerated Patient Goals Patient goals : to gain strength prolinged periods in bed Plan Plan Times per week: 3x/wk Specific instructions for Next Treatment: Progress activity as indicated Current Treatment Recommendations: Strengthening,Endurance Training,Gait Training,Transfer Training,Balance Training Safety Devices Type of devices: Call light within reach,Nurse notified,Left in chair,Gait belt Restraints Initially in place: No Restraints: none Therapy Time Individual Concurrent Group Co-treatment Time In 1110 Time Out 1150 Minutes 40 Timed Code Treatment Minutes: 40 Minutes Erin Rodrigues PTA Images from the original note were not included. [facility] Office: [phone] Mikie Rodriguez DO, Theo Lerma DO, Stuart Natarajan DO, Harpal Tran DO, Prashanth aSdler MD, Deana Raza MD, Florencia Canela MD, Tess Ford MD, Yuliana Saenz MD, Leodan Mak MD, Marimar Ren MD, Fabricio Syed DO, Kyle Broussard DO, Juan Driver MD, Sophia Agustin DO, Lyle Woods MD, Jodi Bain MD, Palomo Drummond MD, Johann Rodriguez DO, Radha Avila MD, Alberto Perez MD, Teresa Quintero, MARINE EQUIPMENT SALES ENGINEER, Tika Hernandez, MARINE EQUIPMENT SALES ENGINEER, Mary Meléndez, MARINE EQUIPMENT SALES ENGINEER, Cathelen Moran, HAIR BLENDER, Abdirahman Bella, MARINE EQUIPMENT SALES ENGINEER, Leslie Rao, MARINE EQUIPMENT SALES ENGINEER, Madalyn Julien, MARINE EQUIPMENT SALES ENGINEER, Ro Bernard, MARINE EQUIPMENT SALES ENGINEER, Carter Charles, MARINE EQUIPMENT SALES ENGINEER, Mckayla Abraham, PA-C, Eli Fu, DNP, Razia Figueroa, DNP, Keri Walker, MARINE EQUIPMENT SALES ENGINEER, Sherrie Rea, MARINE EQUIPMENT SALES ENGINEER, Moon Waldrop, MARINE EQUIPMENT SALES ENGINEER, Ethel Soto, MARINE EQUIPMENT SALES ENGINEER, Jazzy Javier, MARINE EQUIPMENT SALES ENGINEER, Shelli Menon, MARINE EQUIPMENT SALES ENGINEER [facility] IN-PATIENT SERVICE [facility] Progress Note 01/30/2022 1:39 PM Name: Tip Ansari Acct: [id number] Room: IP Day: 10 Admit Date: 01/20/2022 10:23 PM PCP: No primary care provider on file. Code Status: Full Code Subjective: C/C: rigors Interval History Status: not changed. Patient seen and examined, status post I&D of foot, okay for discharge by infectious disease. All the services have signed off. Patient still complaining of occasional night sweats and cough with congestion but feels better today. Brief History: Mr. Tip Ansari is a 42 year old gentleman who initially presented to [facility] ED from the local fdc after he developed acute onset chills and shaking. He noted a wound to his left foot as well. Onset was abrupt, as he felt well earlier in the day. Patient was previously at [facility] in December for MRSA bacteremia with tricuspid valve vegetation. He was discharged on dalbavancin weekly x2 weeks in the infusion center with planned follow up CT and echocardiogram. In addition he was found to have septic arthritis of the right knee and left wrist (also positive for MRSA). In addition patient was found to be stool occult blood positive and lateral multifocal scattered nodular opacities in lung with cavitation which was presumed to be septic emboli. The occult blood resolved itself after being placed on vancomycin and patient was discharged back to fdc CT imaging in the ER revealed no evidence for PE, but with scattered airspace opacities are present throughout the lungs bilaterally to a mild degree, overall improved from prior, possibly representing residual pneumonia. Podiatry and ID have evaluated the patient. He is growing nathaniel in his blood and is on IV diflucan. -GIANFRANCO performed on 01/24 -MRI reveals osteomyelitis of the calcaneus with moderate amount of fluid within the retrocalcaneal bursa demonstrated pronounced peripheral enhancement suggesting septic bursitis with involvement of the distal Achilles tendon. -Underwent I&D with podiatry on 01/26 -? Withdrawal after fentanyl in OR -Significantly improved after time of fentanyl admin and initiation of tigecycline Review of Systems: Constitutional: Reports resolution of chills and sweats; negative for fevers Respiratory: negative for cough, shortness of breath, dyspnea on exertion, wheezing Cardiovascular: Reports palpitations; negative for chest pain, chest pressure/discomfort, lower extremity edema Gastrointestinal: negative for abdominal pain, diarrhea, constipation, nausea, vomiting Neurological: negative for dizziness, headache MSK: Reports left heel pain is controlled Medications: Allergies: Allergies Allergen Reactions Pcn [Penicillins] Anaphylaxis Vancomycin Other (See Comments) Fever and hives chest - despite very slow infusion Current Meds: Scheduled Meds: levoFLOXacin 500 mg Oral Daily fluticasone 1 spray Each Nostril Daily guaiFENesin 600 mg Oral BID sodium chloride flush 5-40 mL IntraVENous 2 times per day bupivacaine liposome 10 mL Infiltration Once caspofungin (CANCIDAS) IVPB 150 mg IntraVENous Q24H enoxaparin 40 mg SubCUTAneous Daily Continuous Infusions: sodium chloride 25 mL (01/27/222219) dextrose PRN Meds: aluminum & magnesium hydroxide-simethicone, magnesium hydroxide, albuterol sulfate HFA, ketorolac, sodium chloride flush, sodium chloride flush, sodium chloride, diphenhydrAMINE, traZODone, glucose, dextrose, glucagon (rDNA), dextrose, melatonin, hydrOXYzine, potassium chloride OR potassium alternative oral replacement OR potassium chloride, magnesium sulfate, ondansetron OR ondansetron, polyethylene glycol, acetaminophen OR acetaminophen Data: Past Medical History: has a past medical history of Abscess, Chronic hepatitis C without hepatic coma (HCC), COPD (chronic obstructive pulmonary disease) (HCC), Depression, and Drug addiction (HCC). Social History: reports that he has quit smoking. He has never used smokeless tobacco. He reports current drug use. Drugs: Cocaine, Opiates , Marijuana ([place]), and Methamphetamines (Crystal Meth). He reports that he does not drink alcohol. Family History: Family History Problem Relation Age of Onset Cancer Mother skin No Known Problems Father Diabetes Maternal Grandmother Diabetes Maternal Grandfather Vitals: BP (!) 142/94 Pulse 100 Temp 98.2 F (36.8 C) (Oral) Resp 21 Ht 6' (1.829 m) Wt 174 lb 9.7 oz (79.2 kg) SpO2 94% BMI 23.68 kg/m Temp (24hrs), Av.4 F (36.9 C), Min:98.2 F (36.8 C), Max:98.8 F (37.1 C) Recent Labs 01/28/22 1648 POCGLU 100 I/O (24Hr): Intake/Output Summary (Last 24 hours) at 01/30/2022 1339 Last data filed at 01/30/2022 1020 Gross per 24 hour Intake 540 ml Output 3480 ml Net -2940 ml Labs: Hematology: Recent Labs 01/28/22 0436 01/29/22 0548 01/30/22 0825 WBC 7.8 10.0 10.4 RBC 3.34* 3.36* 3.13* HGB 9.4* 9.4* 10.2* HCT 30.1* 29.8* 29.9* MCV 90.1 88.7 95.5 MCH 28.1 28.0 32.6 MCHC 31.2 31.5 34.1 RDW 16.6* 17.4* 16.2* PLT 178 131* See Reflexed IPF Result MPV 8.8 8.7 -- Chemistry: Recent Labs 01/28/22 0436 01/28/22 1343 01/28/22 1817 01/29/22 0548 01/30/22 0825 NA 137 -- -- 138 134* K 3.5* -- -- 4.2 3.9 CL 103 -- -- 108* 103 CO2 20 -- -- 20 23 GLUCOSE 153* -- -- 95 155* BUN 29* -- -- 31* 15 CREATININE 0.98 -- -- 0.85 0.88 MG 1.7 -- -- -- -- ANIONGAP 14 -- -- 10 8* LABGLOM >60 -- -- >60 >60 GFRAA >60 -- -- >60 >60 CALCIUM 8.9 -- -- 8.6 7.8* CKTOTAL 8* -- -- 10* 26* LACTACIDWB -- 4.9* 1.6 -- -- Recent Labs 01/28/22 0436 01/28/22 1648 01/29/22 0548 01/30/22 0825 PROT 6.4 -- 6.2* 6.4 LABALBU 3.0* -- 2.6* 1.8* AST 10 -- 23 29 ALT 21 -- 39 15 ALKPHOS 96 -- 88 42 BILITOT <0.10* -- 0.38 1.66* BILIDIR <0.08 -- 0.11 0.70* POCGLU -- 100 -- -- ABG: Lab Results Component Value Date PHART 7.380 12/16/2020 OAR6MIT 44.5 12/16/2020 PO2ART 94.4 12/16/2020 PMY8NCV 25.7 12/16/2020 NBEA NOT REPORTED 12/16/2020 PBEA 0.3 12/16/2020 S0VLFAXX 97.1 12/16/2020 FIO2 28 12/16/2020 Lab Results Component Value Date/Time SPECIAL R HAND 8ML 01/28/2022 01:31 PM Lab Results Component Value Date/Time CULTURE NO GROWTH 1 DAY 01/28/2022 01:31 PM Radiology: XR CALCANEUS LEFT (MIN 2 VIEWS) Result Date: 01/21/2022 1. Soft tissue swelling along the heel of the left foot. No evidence of osteomyelitis. XR CHEST PORTABLE Result Date: 01/20/2022 Diffuse interstitial opacities may represent mild edema or atypical infection. CT CHEST PULMONARY EMBOLISM W CONTRAST Result Date: 01/20/2022 No evidence of pulmonary embolism or acute thoracic aortic abnormality. Improving aeration. Scattered airspace opacities are present throughout the lungs bilaterally to a mild degree, overall improved from prior, possibly representing residual pneumonia. Physical Examination: General appearance: alert, cooperative and no distress, pleasant, sitting up in bed Mental Status: oriented to person, place and time and normal affect Lungs: clear to auscultation bilaterally, normal effort Heart: regular rate (93 BPM) with regular rhythm, no murmur Abdomen: soft, nontender, nondistended, normal bowel sounds, no masses, hepatomegaly, splenomegaly Extremities: no edema, redness, tenderness in the calves, left upper extremity PICC line present, left lower extremity in boot, wrapped with Alireza bandage Skin: no gross lesions, rashes, induration Assessment: Hospital Problems Last Modified POA * (Principal) Sepsis due to Nathaniel species without acute organ dysfunction (HCC) 01/23/2022 Yes Sinus tachycardia 01/23/2022 Yes Septic bursitis of Achilles 01/24/2022 Clinically Undetermined Opiate withdrawal (HCC) 01/28/2022 No Heroin abuse ([facility]) 01/23/2022 Yes Hepatitis C virus infection without hepatic coma 01/23/2022 Yes Endocarditis of tricuspid valve 01/23/2022 Yes Moderate tricuspid regurgitation 01/23/2022 Yes Hyperglycemia 01/23/2022 Yes Acute osteomyelitis of left calcaneus (HCC) 01/28/2022 Yes Acute hematogenous osteomyelitis of left ankle ([facility]) 01/29/2022 Yes Plan: 1. Sepsis likely due to Nathaniel fungemia / secondary infection? -6 weeks of antifungals with fluconazole, end date 03/10/2022. Follow-up with CT surgery outpatient for tricuspid valve replacement 2. Septic pulmonary emboli from previous endocarditis 3. Tricuspid valve endocarditis CT surgery evaluation - complete course of IV anti-fungals. Plan for outpatient follow-up with CT surgery 4. Left ankle osteomyelitis, acute -continue Levaquin for 4 weeks until 02/26/2022. Podiatry follow-up outpatient 5. Heroin abuse -outpatient follow-up with drug rehab/pain clinic. 6. History of Hepatitis C 7. Essential hypertension - stop Maxide and monitor. 8. Daily labs 9. Pain control with Toradol and Tylenol. Avoid opiates. 10. Disposition: Patient okay with oral antibiotics/antifungals. Discharge today Kyle Broussard DO 01/30/2022 1:39 PM Physician Progress Note PATIENT: TIP ANSARI [facility] #: [id number] : 1980 ADMIT DATE: 01/20/2022 10:23 PM DISCH DATE: RESPONDING PROVIDER #: TIP GREWAL DPM QUERY TEXT: Patient admitted with Candidal sepsis, abscess Left heel and osteomyelitis left calcaneous. Per Op note dated 01/26 documentation of debridement. To accurately reflect the procedure performed please document if debridement was excisional or nonexcisional and the deepest depth of tissue removed as down to and including: The medical record reflects the following: Risk Factors: Candidal sepsis, Abscess left heel, osteomyelitis left calcaneous Clinical Indicators: Per OP Note 01/26 I&D to level of bone. Incision was deepened down to the calcaneus. A bone spur previously identified on X-rays was identified. Another incision was made just medial to the achilles tendon. This incision was deepened down to the calcaneus to further expose the spurs. An ostoeotome was then used to resect parts of the calcaneus. This bone was sent to the lab as specimen. XR Left calcaneous-Soft tissue swelling along the heel of the left foot.No evidence of osteomyelitis.. MRI Left ankle 1.Osteomyelitis of the calcaneus with moderate amou 2.Evidence for remote sprain of the intact anterior talofibular ligament. Treatment: I&D, Consult Podiatry/ID/Cardiology/Opthamolog y/Cardiothoracic surgery, labs, monitor, XR Left Calcaneous, MRI ankle, IV Amphotericin/Caspofungin, PO Doxycycline Options provided: -- Excisional debridement of skin -- Nonexcisional debridement of subcutaneous tissue -- Excisional debridement of subcutaneous tissue -- Nonexcisional debridement of fascia -- Excisional debridement of fascia -- Nonexcisional debridement of muscle -- Excisional debridement of muscle -- Nonexcisional debridement of bone -- Excisional debridement of bone -- Other - I will add my own diagnosis -- Disagree - Not applicable / Not valid -- Disagree - Clinically unable to determine / Unknown -- Refer to Clinical Documentation Reviewer PROVIDER RESPONSE TEXT: Excisional debridement of bone of left calcaneus (site) was performed during procedure on 01/26/2022 (date). SEE OP Report for I and D of bone Query created by: Donna Means on 01/30/2022 12:49 PM Electronically signed by: TIP GREWAL DPM 01/30/2022 12:57 PM Images from the original note were not included. 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 [Shoulder was a joint that was back Heroin use, hepatitis C Other: Patient did have a red neck syndrome infection with fever in [place] and again here Label allergic to vanco Allergy to pnc severe Discussion / summary of stay / plan of care Recommendations Left ankle MRI septic joint and OM calcaneus - I/D 01/26 bone bx not sent levaquin x 4 weeks- till 02/26 ( covers also the past MRSA) Repeat EKG in am stop tigecyl GIANFRANCO + TV vegetation 1.1 cm. Along w candidemia Pt could tolerate ambizome only after premedication, stopped 01/27 Caspofungin for now - seems tolerated Consider po fluconazole 400 mg daily at DC Total tx 6 weeks till 03/10/22 FU LFT ophtalmo exam neg 01/26 recent MRSA septicemia treated, but residual septic p emboli. levquin po x 1 month would cover CTS to eval for TV replacement -will FU echo outpt flonase for sinusitis- clear secretions Chart reconsiled for DC Infection Control Recommendations [place] Precautions Contact Isolation Antimicrobial Stewardship Recommendations Simplification of therapy IV to oral conversion Coordination ofOutpatient Care: Estimated Length of IV antimicrobials: Patient will need Midline / picc Catheter Insertion: Patient will need SNF: Patient will need outpatient wound care: History of Present Illness: Initial history: Tip Ansari is a 42 y.o.-year-old male [facility] because of rigors and fever as well as the left foot wound that seems to have started suddenly in [facility] Recently seen 12/2021 by [facility] for MRSA bacteremia, right knee septic arthritis, left wrist septic arthritis, MRSA was on culture, he had a left ankle joint pain but cultures were negative, and the right shoulder pain but a dry tap tried twice at the time. He also has multifocal pulmonary opacities with cavitations on CT scan of the chest, suggestive of septic emboli, and a tricuspid valve vegetation. Patient was admitted 12/13 and discharged on 12/20 with plan of dalbavancin weekly X2 and then to follow more dalbavancin according to blood cultures and CT scan of the chest, and an ultimate plan to keep him on doxycycline p.o. as long as it takes for the resolution of her symptoms He was also supposed to follow as outpatient Refer to my note on 12/20/2021. After discharge patient decided to take a dose of drugs IV on 01/10, overdosed, by the time EMS and police arrived, the patient woke up on the stretcher. Due to a prior history, patient was incarcerated. Since he has been without drugs, and hoping to be off them for of Patient does have heroin use and hepatitis C, he is also severely allergic to penicillin It looks like he had also a vancomycin reaction, with infusion site redness as well as redness over the neck and face fever hotness tachycardia, most likely at head neck syndrome, with recovered within 10 to 15 minutes. On exam 01/21 he does have a swelling on the posterior aspect of the left heel, over the insertion of the Achilles tendons, with an open wound, he is unsure if this was rubbing on his shoe or white. Otherwise able to move his left ankle joint well. No cellulitis present, all the other joints that used to hurt him have recovered. He has no shortness of breath or cough and no fever. He is doing very well on room air and walking while Interval changes 01/30/2022 Patient Vitals for the past 8 hrs: BP Temp Temp src Pulse Resp SpO2 01/30/22 0800 105 25 95 % 01/30/22 0740 (!) 141/95 98.2 F (36.8 C) Oral 98 18 95 % 01/30/22 0510 (!) 127/97 98.2 F (36.8 C) Oral 91 20 94 % 01/22 C alb in one BC only Unclear significance mostly wo fever or sepsis Yet w hx of IVDU it soul be taken seriously Asking for GIANFRANCO Start fluconazole 01/22 01/23 MRI left ankle + PM calcaneus and possible ankle abscess Fever resolved and only one BC has C alb Feels better Left ankle still edematous and await podiatry for surg plans Would rec exploration and at least bone biopsy for better AB coverage 01/25 Alert appropriate, not having fevers, going for debridement of the foot on 01/26 Repeat blood cultures were still negative Patient started on amphotericin B and caspofungin, continues on DAPT CPK 9 Long discussion counseling against drugs 01/26 Refused ambisome after first dose due to severe pain in spine while infusing -worse than a sciatica Resolved after infusion stopped Willing to try again w slow infusion and premedication BC C alb x 1 and all there neg Post L ankle I/D 01/26 01/29 Fever 01/27 and started on tigecyl empiric coverage pend foot cx Ankle abscess and OM, post I/D, cx from [place], 01/26 not sent abd soft and repeat BC are neg Pt did tolerate the second dose of ambizome after premedication, was stopped 01/27. Tolerating caspofungin Placement issue 01/30 Sinus drainage post nasal over night - white clear and sinuses are tender - No fever and abd soft non tender Left foot wound seen clean and re dressed No open wound and no drainage - not red No rash Labs WNR reviewed Summary of relevant labs: Labs: WBC 10 CRP51.6 High CREATININE0.73 Lactic Acid, Whole Blood3.3 High Sed Rate58 High Tapmlydbfhvox45.47 High Micro: BC One f two, 01/21 C alb BC x 4 on 01/20 neg Imaging: MRI left ankle - 1. Osteomyelitis of the calcaneus with moderate amount of fluid within the retrocalcaneal bursa demonstrating pronounced peripheral enhancement. The fluid extends through the partially torn distal Achilles tendon to the adjacent soft tissues posteriorly. Findings suggesting septic bursitis with involvement of the distal Achilles tendon. There is underlying moderate to severe distal Achilles tendinosis. 2. Evidence for remote sprain of the intact anterior talofibular ligament. Xray left foot 1. Soft tissue swelling along the heel of the left foot. No evidence of osteomyelitis. I have personally reviewed the past medical history, past surgical history, medications, social history, and family history, and I haveupdated the database accordingly. Allergies: Pcn [penicillins] and Vancomycin Review of Systems: Review of Systems Constitutional: Negative for activity change, appetite change, chills and fever. HENT: Negative for congestion. Eyes: Negative for pain and itching. Respiratory: Positive for cough. Negative for apnea and choking. Cardiovascular: Negative for chest pain. Gastrointestinal: Negative for abdominal distention. Endocrine: Negative for polydipsia and polyuria. Genitourinary: Negative for dysuria and flank pain. Musculoskeletal: Positive for arthralgias. Skin: Negative for color change. Allergic/Immunologic: Negative for food allergies and immunocompromised state. Neurological: Negative for dizziness, light-headedness and numbness. Hematological: Negative for adenopathy. Psychiatric/Behavioral: Negative for agitation. Physical Examination : Physical Exam Constitutional: General: He is not in acute distress. Appearance: Normal appearance. He is not ill-appearing, toxic-appearing or diaphoretic. HENT: Head: Normocephalic. Nose: Nose normal. Mouth/Throat: Mouth: Mucous membranes are moist. Eyes: General: No scleral icterus. Conjunctiva/sclera: Conjunctivae normal. Neck: Vascular: No carotid bruit. Cardiovascular: Rate and Rhythm: Normal rate and regular rhythm. Heart sounds: Normal heart sounds. No murmur heard. No friction rub. Pulmonary: Effort: No respiratory distress. Breath sounds: No stridor. No wheezing. Abdominal: General: There is no distension. Palpations: There is no mass. Tenderness: There is no abdominal tenderness. Genitourinary: Comments: No ortiz Musculoskeletal: General: Tenderness present. No deformity. Cervical back: Neck supple. No rigidity or tenderness. Right lower leg: No edema. Left lower leg: Edema present. Skin: Coloration: Skin is not jaundiced or pale. Findings: No bruising, erythema, lesion or rash. Neurological: General: No focal deficit present. Mental Status: He is alert and oriented to person, place, and time. Cranial Nerves: No cranial nerve deficit. Psychiatric: Mood and Affect: Mood normal. Thought Content: Thought content normal. Past Medical History: Past Medical History: Diagnosis Date Abscess 2020 left arm + MRSA Chronic hepatitis C without hepatic coma (HCC) COPD (chronic obstructive pulmonary disease) (HCC) Depression Drug addiction (HCC) heroin Past Surgical History: Past Surgical History: Procedure Laterality Date ABSCESS DRAINAGE Left 2019 arm APPENDECTOMY FINGER SURGERY Right 5 th finger tendon repair FOOT DEBRIDEMENT Left 01/26/2022 INCISION AND DRAINAGE, BONE LEFT CALCANEOUS performed by Tip Grewal DPM at [facility] OR FOOT SURGERY Left 01/26/2022 INCISION AND DRAINAGE, BONE LEFT CALCANEOUS (Left Foot) PICC INSERTION VASCULAR ACCESS TEAM 01/25/2022 TYMPANOSTOMY TUBE PLACEMENT Bilateral Medications: levoFLOXacin 500 mg Oral Daily fluticasone 1 spray Each Nostril Daily guaiFENesin 600 mg Oral BID sodium chloride flush 5-40 mL IntraVENous 2 times per day bupivacaine liposome 10 mL Infiltration Once caspofungin (CANCIDAS) IVPB 150 mg IntraVENous Q24H enoxaparin 40 mg SubCUTAneous Daily Social History: Social History Socioeconomic History Marital status: Single Spouse name: Not on file Number of children: Not on file Years of education: Not on file Highest education level: Not on file Occupational History Not on file Tobacco Use Smoking status: Former Smoker Smokeless tobacco: Never Used Substance and Sexual Activity Alcohol use: No Drug use: Yes Types: Cocaine, Opiates , Marijuana ([place]), Methamphetamines (Crystal Meth) Comment: quit heroin Nov Sexual activity: Not on file Other Topics Concern Not on file Social History Narrative Not on file Social Determinants of Health Financial Resource Strain: Difficulty of Paying Living Expenses: Not on file Food Insecurity: Worried About Running Out of Food in the Last Year: Not on file Ran Out of Food in the Last Year: Not on file Transportation Needs: Lack of Transportation (Medical): Not on file Lack of Transportation (Non-Medical): Not on file Physical Activity: Days of Exercise per Week: Not on file Minutes of Exercise per Session: Not on file Stress: Feeling of Stress : Not on file Social Connections: Frequency of Communication with Friends and Family: Not on file Frequency of Social Gatherings with Friends and Family: Not on file Attends Bahai Services: Not on file Active Member of Clubs or Organizations: Not on file Attends Club or Organization Meetings: Not on file Marital Status: Not on file Intimate Partner Violence: Fear of Current or Ex-Partner: Not on file Emotionally Abused: Not on file Physically Abused: Not on file Sexually Abused: Not on file Housing Stability: Unable to Pay for Housing in the Last Year: Not on file Number of Places Lived in the Last Year: Not on file Unstable Housing in the Last Year: Not on file Family History: Family History Problem Relation Age of Onset Cancer Mother skin No Known Problems Father Diabetes Maternal Grandmother Diabetes Maternal Grandfather Medical Decision Making: I have independently reviewed/ordered the following labs: CBC with Differential: Recent Labs 01/29/22 0548 01/30/22 0825 WBC 10.0 10.4 HGB 9.4* 10.2* HCT 29.8* 29.9* PLT 131* See Reflexed IPF Result LYMPHOPCT 10* 13* MONOPCT 10 17* BMP: Recent Labs 01/28/22 0436 01/28/22 0436 01/29/22 0548 01/30/22 0825 NA 137 < > 138 134* K 3.5* < > 4.2 3.9 CL 103 < > 108* 103 CO2 20 < > 20 23 BUN 29* < > 31* 15 CREATININE 0.98 < > 0.85 0.88 MG 1.7 -- -- -- < > = values in this interval not displayed. Hepatic Function Panel: Recent Labs 01/29/22 0548 01/30/22 0825 PROT 6.2* 6.4 LABALBU 2.6* 1.8* BILIDIR 0.11 0.70* IBILI 0.27 0.96 BILITOT 0.38 1.66* ALKPHOS 88 42 ALT 39 15 AST 23 29 No results for input(s): RPR in the last 72 hours. No results for input(s): HIV in the last 72 hours. No results for input(s): BC in the last 72 hours. Lab Results Component Value Date CREATININE 0.88 01/30/2022 GLUCOSE 155 01/30/2022 Detailed results: Thank you for allowing us to participate in the care of this patient.Please call with questions. This note is created with the assistance of a speech recognition program. While intending to generate adocument that actually reflects the content of the visit, the document can still have some errors including those of syntax and sound a like substitutions which may escape proof reading. It such instances, actual meaningcan be extrapolated by contextual diversion. Marisol Andrea MD Office: [facility] / office [phone] Images from the original note were not included. Physical Therapy Physical Therapy Cancel Note DATE: 01/29/2022 NAME: Tip Ansari : 1980 Patient not seen this date for Physical Therapy due to: Patient Declined: Stated he is getting around ok today, therapist educated pt on benefit of PT in hospital setting, PT will resume 01/30/22 Images from the original note were not included. [facility] Office: [phone] Mikie Rodriguez DO, Theo Lerma DO, Stuart Natarajan DO, Harpal Tran DO, Prashanth Sadler MD, Deana Raza MD, Florencia Canela MD, Tess Ford MD, Yuliana Saenz MD, Leodan Mak MD, Marimar Ren MD, Fabricio Syed DO, Kyle Broussard DO, Juan Driver MD, Sophia Agustin DO, Lyle Woods MD, Jodi Bain MD, Palomo Drummond MD, Johann Rodriguez DO, Radha Avila MD, Alberto Perez MD, Teresa Quintero CNP, Tika Hernandez CNP, Mary Meléndez CNP, Cathleen Moran, [facility], Abdirahman Bella, [employer], Leslie Rao, [employer], Madalyn Julien, [employer], Ro Bernard, [employer], Carter Charles, [employer], Mckayla Abraham PA-C, Eli Fu DNP, Razia Figueroa, FÉLIX, Keri Walker, [employer]INE EQUIPMENT SALES ENGINEER, Sherrie Rea, MARINE EQUIPMENT SALES ENGINEER, Moon Waldrop, MARINE EQUIPMENT SALES ENGINEER, Ethel Soto, MARINE EQUIPMENT SALES ENGINEER, Jazzy Javier, MARINE EQUIPMENT SALES ENGINEER, Shelli Menon, MARINE EQUIPMENT SALES ENGINEER [facility] IN-PATIENT SERVICE [facility] Progress Note 01/29/2022 1:33 PM Name: Tip Ansari Acct: [id number] Room: IP Day: 9 Admit Date: 01/20/2022 10:23 PM PCP: No primary care provider on file. Code Status: Full Code Subjective: C/C: rigors Interval History Status: not changed. Pt seen and examined this morning. Postop day #3 from I&D of the heel down to the bone. Patient feeling significantly improved today. Reports that he is no longer feeling his heart rate. Left ankle feels well. BP improved. HR improved. Inquiring about getting started back on Suboxone. Brief History: Mr. Tip Ansari is a 42 year old gentleman who initially presented to [facility] ED from the local fdc after he developed acute onset chills and shaking. He noted a wound to his left foot as well. Onset was abrupt, as he felt well earlier in the day. Patient was previously at [facility] in December for MRSA bacteremia with tricuspid valve vegetation. He was discharged on dalbavancin weekly x2 weeks in the infusion center with planned follow up CT and echocardiogram. In addition he was found to have septic arthritis of the right knee and left wrist (also positive for MRSA). In addition patient was found to be stool occult blood positive and lateral multifocal scattered nodular opacities in lung with cavitation which was presumed to be septic emboli. The occult blood resolved itself after being placed on vancomycin and patient was discharged back to fdc CT imaging in the ER revealed no evidence for PE, but with scattered airspace opacities are present throughout the lungs bilaterally to a mild degree, overall improved from prior, possibly representing residual pneumonia. Podiatry and ID have evaluated the patient. He is growing nathaniel in his blood and is on IV diflucan. -GIANFRANCO performed on 01/24 -MRI reveals osteomyelitis of the calcaneus with moderate amount of fluid within the retrocalcaneal bursa demonstrated pronounced peripheral enhancement suggesting septic bursitis with involvement of the distal Achilles tendon. -Underwent I&D with podiatry on 01/26 -? Withdrawal after fentanyl in OR -Significantly improved after time of fentanyl admin and initiation of tigecycline Review of Systems: Constitutional: Reports resolution of chills and sweats; negative for fevers Respiratory: negative for cough, shortness of breath, dyspnea on exertion, wheezing Cardiovascular: Reports palpitations; negative for chest pain, chest pressure/discomfort, lower extremity edema Gastrointestinal: negative for abdominal pain, diarrhea, constipation, nausea, vomiting Neurological: negative for dizziness, headache MSK: Reports left heel pain is controlled Medications: Allergies: Allergies Allergen Reactions Pcn [Penicillins] Anaphylaxis Vancomycin Other (See Comments) Fever and hives chest - despite very slow infusion Current Meds: Scheduled Meds: tigecycline (TYGACIL) IVPB 50 mg IntraVENous Q12H sodium chloride flush 5-40 mL IntraVENous 2 times per day bupivacaine liposome 10 mL Infiltration Once sodium chloride flush 5-40 mL IntraVENous 2 times per day caspofungin (CANCIDAS) IVPB 150 mg IntraVENous Q24H insulin lispro 0-6 Units SubCUTAneous TID insulin lispro 0-3 Units SubCUTAneous Nightly enoxaparin 40 mg SubCUTAneous Daily Continuous Infusions: sodium chloride 100 mL/hr at 01/29/22 0239 sodium chloride sodium chloride 25 mL (01/27/22 2220) dextrose PRN Meds: magnesium hydroxide, albuterol sulfate HFA, ketorolac, sodium chloride flush, sodium chloride, sodium chloride flush, sodium chloride, diphenhydrAMINE, traZODone, glucose, dextrose, glucagon (rDNA), dextrose, melatonin, hydrOXYzine, potassium chloride OR potassium alternative oral replacement OR potassium chloride, magnesium sulfate, ondansetron OR ondansetron, polyethylene glycol, acetaminophen OR acetaminophen Data: Past Medical History: has a past medical history of Abscess, Chronic hepatitis C without hepatic coma (HCC), COPD (chronic obstructive pulmonary disease) (HCC), Depression, and Drug addiction (HCC). Social History: reports that he has quit smoking. He has never used smokeless tobacco. He reports current drug use. Drugs: Cocaine, Opiates , Marijuana ([place]), and Methamphetamines (Crystal Meth). He reports that he does not drink alcohol. Family History: Family History Problem Relation Age of Onset Cancer Mother skin No Known Problems Father Diabetes Maternal Grandmother Diabetes Maternal Grandfather Vitals: BP (!) 141/99 Pulse 101 Temp 98.2 F (36.8 C) (Oral) Resp 26 Ht 6' (1.829 m) Wt 174 lb 9.7 oz (79.2 kg) SpO2 95% BMI 23.68 kg/m Temp (24hrs), Av.2 F (36.8 C), Min:97.7 F (36.5 C), Max:98.9 F (37.2 C) Recent Labs 01/28/22 1648 POCGLU 100 I/O (24Hr): Intake/Output Summary (Last 24 hours) at 01/29/2022 1333 Last data filed at 01/29/2022 1200 Gross per 24 hour Intake 2857 ml Output 2425 ml Net 432 ml Labs: Hematology: Recent Labs 01/27/22 0622 01/28/22 0436 01/29/22 0548 WBC 19.8* 7.8 10.0 RBC 3.67* 3.34* 3.36* HGB 10.1* 9.4* 9.4* HCT 31.8* 30.1* 29.8* MCV 86.6 90.1 88.7 MCH 27.5 28.1 28.0 MCHC 31.8 31.2 31.5 RDW 16.1* 16.6* 17.4* PLT 201 178 131* MPV 9.2 8.8 8.7 Chemistry: Recent Labs 01/27/22 0622 01/28/22 0436 01/28/22 1343 01/28/22 1817 01/29/22 0548 NA 136 137 -- -- 138 K 4.4 3.5* -- -- 4.2 CL 101 103 -- -- 108* CO2 24 20 -- -- 20 GLUCOSE 187* 153* -- -- 95 BUN 25* 29* -- -- 31* CREATININE 0.93 0.98 -- -- 0.85 MG -- 1.7 -- -- -- ANIONGAP 11 14 -- -- 10 LABGLOM >60 >60 -- -- >60 GFRAA >60 >60 -- -- >60 CALCIUM 9.1 8.9 -- -- 8.6 CKTOTAL 11* 8* -- -- 10* LACTACIDWB -- -- 4.9* 1.6 -- Recent Labs 01/27/22 0622 01/28/22 0436 01/28/22 1648 01/29/22 0548 PROT 7.2 6.4 -- 6.2* LABALBU 3.1* 3.0* -- 2.6* AST 14 10 -- 23 ALT 27 21 -- 39 ALKPHOS 87 96 -- 88 BILITOT 0.30 <0.10* -- 0.38 BILIDIR 0.09 <0.08 -- 0.11 POCGLU -- -- 100 -- ABG: Lab Results Component Value Date PHART 7.380 12/16/2020 [id number] 44.5 12/16/2020 PO2ART 94.4 12/16/2020 GYC8RTC 25.7 12/16/2020 NBEA NOT REPORTED 12/16/2020 PBEA 0.3 12/16/2020 [id number] 97.1 12/16/2020 FIO2 28 12/16/2020 Lab Results Component Value Date/Time SPECIAL R HAND 8ML 01/28/2022 01:31 PM Lab Results Component Value Date/Time CULTURE NO GROWTH 12 HOURS 01/28/2022 01:31 PM Radiology: XR CALCANEUS LEFT (MIN 2 VIEWS) Result Date: 01/21/2022 1. Soft tissue swelling along the heel of the left foot. No evidence of osteomyelitis. XR CHEST PORTABLE Result Date: 01/20/2022 Diffuse interstitial opacities may represent mild edema or atypical infection. CT CHEST PULMONARY EMBOLISM W CONTRAST Result Date: 01/20/2022 No evidence of pulmonary embolism or acute thoracic aortic abnormality. Improving aeration. Scattered airspace opacities are present throughout the lungs bilaterally to a mild degree, overall improved from prior, possibly representing residual pneumonia. Physical Examination: General appearance: alert, cooperative and no distress, pleasant, sitting up in bed Mental Status: oriented to person, place and time and normal affect Lungs: clear to auscultation bilaterally, normal effort Heart: regular rate (93 BPM) with regular rhythm, no murmur Abdomen: soft, nontender, nondistended, normal bowel sounds, no masses, hepatomegaly, splenomegaly Extremities: no edema, redness, tenderness in the calves, left upper extremity PICC line present, left lower extremity in boot, wrapped with Alireza bandage Skin: no gross lesions, rashes, induration Assessment: Hospital Problems Last Modified POA * (Principal) Sepsis due to Nathaniel species without acute organ dysfunction (HCC) 01/23/2022 Yes Endocarditis of tricuspid valve 01/23/2022 Yes Sinus tachycardia 01/23/2022 Yes Septic bursitis of Achilles 01/24/2022 Clinically Undetermined Acute osteomyelitis of left calcaneus (HCC) 01/28/2022 Yes Opiate withdrawal (HCC) 01/28/2022 No Heroin abuse ([facility]) 01/23/2022 Yes Moderate tricuspid regurgitation 01/23/2022 Yes Hepatitis C virus infection without hepatic coma 01/23/2022 Yes Hyperglycemia 01/23/2022 Yes Acute hematogenous osteomyelitis of left ankle (HCC) 01/29/2022 Yes Plan: 1. Sepsis likely due to Nathaniel fungemia / secondary infection? - continue antifungals at infectious disease's discretion. Started on tigecycline yesterday afternoon with significant improvement of tachycardia and generalized ill feeling. On cancidas. 2. Septic pulmonary emboli from previous endocarditis on tigecycline (started 01/28) 3. Tricuspid valve endocarditis CT surgery evaluation - complete course of IV anti-fungals. Then repeat echo. CT surgery has signed off. 4. Left ankle osteomyelitis, acute - significant infection of the retrocalcaneal bursal sac, partially torn Achilles tendon with Achilles tendinosis, and calcaneal osteomyelitis. Postop day #3 from I&D with podiatry. Await bone culture. Podiatry has signed off. Boot present. 5. Heroin abuse - SW and case management following. Working on LTAC at discharge. Avoid opiates. Discussed with CM today. Patient needs set up with outpatient physician for initiation of suboxone at his request. 6. Sinus tachycardia please do not utilize beta-blockers to treat this. Improved after initiation of tigecycline. 7. History of Hepatitis C 8. Essential hypertension - stop Maxide and monitor. 9. Daily labs 10. Pain control with Toradol and Tylenol. Avoid opiates. 11. Disposition: Awaiting culture data and social work/CM is working on placement. Await final dispo on abx/antifungals FABRICIO SYED DO 01/29/2022 1:33 PM Comprehensive Nutrition Assessment Type and Reason for Visit: Reassess Nutrition Recommendations/Plan: Continue current diet. Encourage/monitor PO intakes as tolerated. Monitor need for oral supplements. Will monitor plan of care. Nutrition Assessment: Pt continues to have a good appetite and is eating well at meals. This morning pt ate 75-100% of his breakfast and is taking fluids very well. S/p I&D of left foot/heel on 01/26. Labs/Meds reviewed. 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 Last BM 01/29. Wounds: Surgical Incision (wound to left heel/foot) Current Nutrition Therapies: ADULT DIET; Regular Anthropometric Measures: Height: 6' (182.9 cm) Current Body Weight: 160 lb 3.2 oz (72.7 kg) Admission Body Weight: 161 lb (73 kg) Usual Body Weight: 172 lb 3.2 oz (78.1 kg) (12/13/21 bed scale per chart review) Pace Body Weight: 178 lbs; % Pace Body Weight 90 % BMI: 21.7 BMI Categories: Normal Weight (BMI 18.5-24.9) Nutrition Diagnosis: Increased nutrient needs related to (healing) as evidenced by (open blister to left heel) Nutrition Interventions: Food and/or Nutrient Delivery: Continue Current Diet Nutrition Education/Counseling: No recommendation at this time Coordination of Nutrition Care: Continue to monitor while inpatient Goals: Oral intakes to meet at least 75% of estimated nutriton needs. Nutrition Monitoring and Evaluation: Behavioral-Environmental Outcomes: None Identified Food/Nutrient Intake Outcomes: Food and Nutrient Intake Physical Signs/Symptoms Outcomes: Biochemical Data,GI Status,Fluid Status or Edema,Hemodynamic Status,Weight,Skin Discharge Planning: Continue current diet Contact: [phone] [facility] Cardiothoracic Surgery Progress Note 01/29/2022 11:03 AM Subjective: Mr. Ansari Resting in bed with no chest pain or SOB Pt is afebrile no chills he states States feels much better. Worried about withdrawal and requesting help with getting outpt help. Objective: BP (!) 143/94 Pulse 101 Temp 98.2 F (36.8 C) (Oral) Resp 27 Ht 6' (1.829 m) Wt 174 lb 9.7 oz (79.2 kg) SpO2 97% BMI 23.68 kg/m Chest: pacing wires: no, chest tubes:no, air leak no, 0 + CV: no murmur noted, Normal S1, S2,NSR Lungs: clear to auscultation, no wheezes, rales, or rhonchi Abd: normal bowel sounds Lower Extremities: Trace edema-bandage to left ankle from surgery with ortho Neuro-A&0x4 Skin-clean pysch-mild agitation in bed Reviewed BCs which are negative. Last positive BC was 3-13-22 Negative leukocytosis Echo- GIANFRANCO 1.1cm veg with mild to moderate TR Normal EF Labs: Labs reviewed today CBC: Recent Labs 01/27/2262101/28/22 0436 01/29/22 0548 WBC 19.8* 7.8 10.0 HGB 10.1* 9.4* 9.4* HCT 31.8* 30.1* 29.8* MCV 86.6 90.1 88.7 PLT 201 178 131* BMP: Recent Labs 01/27/2262101/28/22 0436 01/29/22 0548 NA 136 137 138 K 4.4 3.5* 4.2 CL 101 103 108* CO2 24 20 20 BUN 25* 29* 31* CREATININE 0.93 0.98 0.85 I/O: I/O last 3 completed shifts: In: 3099.9 [P.O.:1080; I.V.:928.7; IV Piggyback:1091.2] Out: 1900 [Urine:1900] Scheduled Meds: tigecycline (TYGACIL) IVPB 50 mg IntraVENous Q12H sodium chloride flush 5-40 mL IntraVENous 2 times per day bupivacaine liposome 10 mL Infiltration Once sodium chloride flush 5-40 mL IntraVENous 2 times per day caspofungin (CANCIDAS) IVPB 150 mg IntraVENous Q24H insulin lispro 0-6 Units SubCUTAneous TID WC insulin lispro 0-3 Units SubCUTAneous Nightly enoxaparin 40 mg SubCUTAneous Daily Continuous Infusions: sodium chloride 100 mL/hr at 01/29/22 0239 sodium chloride sodium chloride 25 mL (01/27/22 2220) dextrose PRN Meds:magnesium hydroxide, albuterol sulfate HFA, ketorolac, sodium chloride flush, sodium chloride, sodium chloride flush, sodium chloride, diphenhydrAMINE, traZODone, glucose, dextrose, glucagon (rDNA), dextrose, melatonin, hydrOXYzine, potassium chloride OR potassium alternative oral replacement OR potassium chloride, magnesium sulfate, ondansetron OR ondansetron, polyethylene glycol, acetaminophen OR acetaminophen Daily Nursing Care: Please keep SCDS in place as DVT prophylaxis If not intubated, Please have patient use IS and acapella 10X/hr or during commercial breaks Please continue BM management Daily labs and CXR Daily PT/OT and ambulation Continue with Case Management for DC planning Assessment/ Plan: Pt is not toxic appearing. Plan will be to have him complete antibiotics and antifungals outpt or facility and then have him come back to CTS in February (placed in follow up) with repeat BCs that are clean and repeat echocardiogram to view TV for improvement. Pt agrees with plan at this time CTS sign off Time spent with patient 20 MIAN ALBERTO NP Images from the original note were not included. 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 [Shoulder was a joint that was back Heroin use, hepatitis C Other: Patient did have a red neck syndrome infection with fever in [place] and again here Label allergic to vanco Allergy to pnc severe Discussion / summary of stay / plan of care Recommendations Left ankle MRI septic joint and OM calcaneus - I/D 01/26 bone bx not sent levaquin x 4 weeks- till 02/26 Repeat EKG in am stop tigecyl GIANFRANCO + TV vegetation 1.1 cm. likely nathaniel Pt could tolerate ambizome only after premedication, stopped 01/27 Caspofungin for now - seems tolerated Consider po fluconazole 400 mg daily Total tx 6 weeks till 03/10/22 FU LFT ophtalmo exam neg 01/26 recent MRSA septicemia treated, but residual septic p emboli. levquin po x 1 month would cover CTS to eval for TV replacement -will FU echo outpt This condition carries increased mortality Infection Control Recommendations [place] Precautions Contact Isolation Antimicrobial Stewardship Recommendations Simplification of therapy IV to oral conversion Coordination ofOutpatient Care: Estimated Length of IV antimicrobials: Patient will need Midline / picc Catheter Insertion: Patient will need SNF: Patient will need outpatient wound care: History of Present Illness: Initial history: Tip Ansari is a 42 y.o.-year-old male sent to patient from fdc because of rigors and fever as well as the left foot wound that seems to have started suddenly in fdc Recently seen 12/2021 by [place] STJered for MRSA bacteremia, right knee septic arthritis, left wrist septic arthritis, MRSA was on culture, he had a left ankle joint pain but cultures were negative, and the right shoulder pain but a dry tap tried twice at the time. He also has multifocal pulmonary opacities with cavitations on CT scan of the chest, suggestive of septic emboli, and a tricuspid valve vegetation. Patient was admitted 12/13 and discharged on 12/20 with plan of dalbavancin weekly X2 and then to follow more dalbavancin according to blood cultures and CT scan of the chest, and an ultimate plan to keep him on doxycycline p.o. as long as it takes for the resolution of her symptoms He was also supposed to follow as outpatient Refer to my note on 12/20/2021. After discharge patient decided to take a dose of drugs IV on 01/10, overdosed, by the time EMS and police arrived, the patient woke up on the stretcher. Due to a prior history, patient was incarcerated. Since he has been without drugs, and hoping to be off them for of Patient does have heroin use and hepatitis C, he is also severely allergic to penicillin It looks like he had also a vancomycin reaction, with infusion site redness as well as redness over the neck and face fever hotness tachycardia, most likely at head neck syndrome, with recovered within 10 to 15 minutes. On exam 01/21 he does have a swelling on the posterior aspect of the left heel, over the insertion of the Achilles tendons, with an open wound, he is unsure if this was rubbing on his shoe or white. Otherwise able to move his left ankle joint well. No cellulitis present, all the other joints that used to hurt him have recovered. He has no shortness of breath or cough and no fever. He is doing very well on room air and walking while Interval changes 01/29/2022 Patient Vitals for the past 8 hrs: BP Temp Temp src Pulse Resp SpO2 Weight 01/29/22 0700 (!) 143/94 98.2 F (36.8 C) Oral 101 27 97 % 01/29/22 0600 174 lb 9.7 oz (79.2 kg) 01/29/22 0400 118/81 98 F (36.7 C) Axillary 97 22 97 % 01/22 C alb in one BC only Unclear significance mostly wo fever or sepsis Yet w hx of IVDU it soul be taken seriously Asking for GIANFRANCO Start fluconazole 01/22 01/23 MRI left ankle + PM calcaneus and possible ankle abscess Fever resolved and only one BC has C alb Feels better Left ankle still edematous and await podiatry for surg plans Would rec exploration and at least bone biopsy for better AB coverage 01/25 Alert appropriate, not having fevers, going for debridement of the foot on 01/26 Repeat blood cultures were still negative Patient started on amphotericin B and caspofungin, continues on DAPT CPK 9 Long discussion counseling against drugs 01/26 Refused ambisome after first dose due to severe pain in spine while infusing -worse than a sciatica Resolved after infusion stopped Willing to try again w slow infusion and premedication BC C alb x 1 and all there neg Post L ankle I/D 01/26 01/29 Fever 01/27 and started on tigecyl empiric coverage pend foot cx Ankle abscess and OM, post I/D, cx from OR, 01/26 not sent abd soft and repeat BC are neg Pt did tolerate the second dose of ambizome after premedication, was stopped 01/27. Tolerating caspofungin Placement issue Summary of relevant labs: Labs: WBC 10 CRP51.6 High CREATININE0.73 Lactic Acid, Whole Blood3.3 High Sed Rate58 High Tmcylwaaskdfj28.47 High Micro: BC One f two, 01/21 C alb BC x 4 on 01/20 neg Imaging: MRI left ankle - 1. Osteomyelitis of the calcaneus with moderate amount of fluid within the retrocalcaneal bursa demonstrating pronounced peripheral enhancement. The fluid extends through the partially torn distal Achilles tendon to the adjacent soft tissues posteriorly. Findings suggesting septic bursitis with involvement of the distal Achilles tendon. There is underlying moderate to severe distal Achilles tendinosis. 2. Evidence for remote sprain of the intact anterior talofibular ligament. Xray left foot 1. Soft tissue swelling along the heel of the left foot. No evidence of osteomyelitis. I have personally reviewed the past medical history, past surgical history, medications, social history, and family history, and I haveupdated the database accordingly. Allergies: Pcn [penicillins] and Vancomycin Review of Systems: Review of Systems Constitutional: Negative for activity change, appetite change, chills, diaphoresis and fatigue. HENT: Negative for congestion. Eyes: Negative for photophobia, pain, redness and itching. Respiratory: Negative for apnea and choking. Cardiovascular: Negative for chest pain. Gastrointestinal: Negative for abdominal distention. Endocrine: Negative for polydipsia and polyuria. Genitourinary: Negative for dysuria and flank pain. Musculoskeletal: Positive for arthralgias. Skin: Negative for color change. Allergic/Immunologic: Negative for food allergies and immunocompromised state. Neurological: Negative for dizziness, light-headedness and numbness. Hematological: Negative for adenopathy. Psychiatric/Behavioral: Negative for agitation. Physical Examination : Physical Exam Constitutional: General: He is not in acute distress. Appearance: Normal appearance. He is not ill-appearing, toxic-appearing or diaphoretic. HENT: Head: Normocephalic. Nose: Nose normal. Mouth/Throat: Mouth: Mucous membranes are moist. Eyes: General: No scleral icterus. Conjunctiva/sclera: Conjunctivae normal. Neck: Vascular: No carotid bruit. Cardiovascular: Rate and Rhythm: Normal rate and regular rhythm. Heart sounds: Normal heart sounds. No murmur heard. No friction rub. Pulmonary: Effort: No respiratory distress. Breath sounds: No stridor. No wheezing. Abdominal: General: There is no distension. Palpations: There is no mass. Tenderness: There is no abdominal tenderness. Genitourinary: Comments: No ortiz Musculoskeletal: General: Tenderness present. No deformity. Cervical back: Neck supple. No rigidity or tenderness. Right lower leg: No edema. Left lower leg: Edema present. Skin: Coloration: Skin is not jaundiced or pale. Findings: No bruising, erythema, lesion or rash. Neurological: General: No focal deficit present. Mental Status: He is alert and oriented to person, place, and time. Cranial Nerves: No cranial nerve deficit. Psychiatric: Mood and Affect: Mood normal. Thought Content: Thought content normal. Past Medical History: Past Medical History: Diagnosis Date Abscess 2020 left arm + MRSA Chronic hepatitis C without hepatic coma (HCC) COPD (chronic obstructive pulmonary disease) (HCC) Depression Drug addiction (HCC) heroin Past Surgical History: Past Surgical History: Procedure Laterality Date ABSCESS DRAINAGE Left 2019 arm APPENDECTOMY FINGER SURGERY Right 5 th finger tendon repair FOOT SURGERY Left 01/26/2022 INCISION AND DRAINAGE, BONE LEFT CALCANEOUS (Left Foot) PICC INSERTION VASCULAR ACCESS TEAM 01/25/2022 TYMPANOSTOMY TUBE PLACEMENT Bilateral Medications: tigecycline (TYGACIL) IVPB 50 mg IntraVENous Q12H sodium chloride flush 5-40 mL IntraVENous 2 times per day bupivacaine liposome 10 mL Infiltration Once sodium chloride flush 5-40 mL IntraVENous 2 times per day caspofungin (CANCIDAS) IVPB 150 mg IntraVENous Q24H insulin lispro 0-6 Units SubCUTAneous TID WC insulin lispro 0-3 Units SubCUTAneous Nightly enoxaparin 40 mg SubCUTAneous Daily Social History: Social History Socioeconomic History Marital status: Single Spouse name: Not on file Number of children: Not on file Years of education: Not on file Highest education level: Not on file Occupational History Not on file Tobacco Use Smoking status: Former Smoker Smokeless tobacco: Never Used Substance and Sexual Activity Alcohol use: No Drug use: Yes Types: Cocaine, Opiates , Marijuana ([place]), Methamphetamines (Crystal Meth) Comment: quit heroin Nov Sexual activity: Not on file Other Topics Concern Not on file Social History Narrative Not on file Social Determinants of Health Financial Resource Strain: Difficulty of Paying Living Expenses: Not on file Food Insecurity: Worried About Running Out of Food in the Last Year: Not on file Ran Out of Food in the Last Year: Not on file Transportation Needs: Lack of Transportation (Medical): Not on file Lack of Transportation (Non-Medical): Not on file Physical Activity: Days of Exercise per Week: Not on file Minutes of Exercise per Session: Not on file Stress: Feeling of Stress : Not on file Social Connections: Frequency of Communication with Friends and Family: Not on file Frequency of Social Gatherings with Friends and Family: Not on file Attends Bahai Services: Not on file Active Member of Clubs or Organizations: Not on file Attends Club or Organization Meetings: Not on file Marital Status: Not on file Intimate Partner Violence: Fear of Current or Ex-Partner: Not on file Emotionally Abused: Not on file Physically Abused: Not on file Sexually Abused: Not on file Housing Stability: Unable to Pay for Housing in the Last Year: Not on file Number of Places Lived in the Last Year: Not on file Unstable Housing in the Last Year: Not on file Family History: Family History Problem Relation Age of Onset Cancer Mother skin No Known Problems Father Diabetes Maternal Grandmother Diabetes Maternal Grandfather Medical Decision Making: I have independently reviewed/ordered the following labs: CBC with Differential: Recent Labs 01/28/22 0436 01/29/22 0548 WBC 7.8 10.0 HGB 9.4* 9.4* HCT 30.1* 29.8* PLT 178 131* LYMPHOPCT 18* 10* MONOPCT 6 10 BMP: Recent Labs 01/28/22 0436 01/29/22 0548 NA 137 138 K 3.5* 4.2 CL 103 108* CO2 20 20 BUN 29* 31* CREATININE 0.98 0.85 MG 1.7 -- Hepatic Function Panel: Recent Labs 01/28/22 0436 01/29/22 0548 PROT 6.4 6.2* LABALBU 3.0* 2.6* BILIDIR <0.08 0.11 IBILI Can not be calculated 0.27 BILITOT <0.10* 0.38 ALKPHOS 96 88 ALT 21 39 AST 10 23 No results for input(s): RPR in the last 72 hours. No results for input(s): HIV in the last 72 hours. No results for input(s): BC in the last 72 hours. Lab Results Component Value Date CREATININE 0.85 01/29/2022 GLUCOSE 95 01/29/2022 Detailed results: Thank you for allowing us to participate in the care of this patient.Please call with questions. This note is created with the assistance of a speech recognition program. While intending to generate adocument that actually reflects the content of the visit, the document can still have some errors including those of syntax and sound a like substitutions which may escape proof reading. It such instances, actual meaningcan be extrapolated by contextual diversion. Marisol Andrea MD Office: Perfect serve / office [phone] Images from the original note were not included. [facility] - Infectious diseases evaluation Progress Note admission date 01/20/2022 reason for consultation: Sepsis Vanco allergy Impression : Current: Left calcaneal Osteomyelitis Partially torn left Achilles tendon with Achilles tendonitis Septic bursitis of left heel. s/p I&D 01/26/22 Currently on doxycyline because of allergic reaction to Vancomycin. Patient has developed temperature elevation to 102, tachycardia, tachypnea. Doxycycline switched over to tigecycline pending results of repeat blood cultures. Vancomycin reaction- Tachycardia, fever, red neck syndrome in [place] s/p 2 doses of Vancomycin. Likely serotonin release syndrome. Hx of Anaphylaxis to penicillin questionable if he ever tried cephalosporins 01/21 candidemia x 1 - C. Albicans On treatment with IV Caspofungin. Stop date 02-05-22 This could be switched to high dose po fluconazole as the patient improves Prior Tricuspid valve endocarditis, MRSA on 12-13-21 Treated with vancomycin and then 2 doses of dalbavancin as an outpatient. No sign of relapse of MRSA endocarditis as multiple blood cultures show no growth Has residual original tricuspid vegetation Prior Pulmonary septic emboli with MRSA in December 2021. cavitations resolved per CT chest 01-20-22 Recent Pulmonary septic emboli with cavitary pneumonia-MRSA Tricuspid endocarditis with vegetation and MRSA septicemia MRSA infected left wrist, right knee, Suspected arthritis but culture negative, left ankle and right shoulder. Heroin use, hepatitis C Discussion / summary of stay / plan of care Patient with history of prior heroin abuse Seen initially on 12/13/2021 with MRSA tricuspid valve endocarditis, multiple metastatic foci at different joints, septic pulmonary emboli with central cavitations. Was treated for the MRSA endocarditis successfully as multiple subsequent blood cultures have shown no growth. However, GIANFRANCO 01/26/2022 shows residual tricuspid vegetation CTS to eval for possible TV replacement or aspiration of the tricuspid vegetation CT scan on 01/20/2022 shows resolution of previous cavitations within prior septic emboli Presented on current admission with a swelling of the left ankle Left ankle MRI septic joint and OM calcaneus. He is a status post surgical intervention on 01/26/22 per Podiatry Blood culture on 01/21/2022 shows growth of Nathaniel albicans x1 Patient receiving treatment with Cancidas for a period of 2 weeks. Recommendations For Fungemia: BC nathaniel albicans x 1 on 01-21-22 Ambisome 366 mg IV Q 24 hours initiated 01/24/22. Stopped 01-27-22 as the patient experienced an adverse reaction Cancidas 150 mg IV Q 24 hours initiated 01/25/22. Plan 14 days of treatment. Stop date 02-07-22 For MRSA bone infection PO Doxycycline 100 mg BID initiated 01/27/22 Await bone culture results from left foot I&D on 01/26/22 Infection Control Recommendations [place] Precautions Contact Isolation Antimicrobial Stewardship Recommendations Simplification of therapy IV to oral conversion Coordination ofOutpatient Care: Estimated Length of IV antimicrobials: Patient will need Midline / picc Catheter Insertion: Patient will need SNF: Patient will need outpatient wound care: History of Present Illness: Initial history: Tip Ansari is a 42 y.o.-year-old male [facility] from [facility] because of rigors and fever as well as a left foot wound that seems to have started suddenly in [facility] Recently seen 12/13/[address] Andrea at [facility] for MRSA septicemia, right knee septic arthritis, left wrist septic arthritis, MRSA was cultured. He also had left ankle joint pain but cultures were negative. In addition he had right shoulder pain. Attempts at aspiration yielded dry taps twice. He also had multifocal pulmonary opacities with cavitations on CT scan of the chest, suggestive of septic emboli, and a tricuspid valve vegetation. Patient was admitted 12/13/21 and discharged on 12/20 with plans for dalbavancin weekly X2 and then to follow with more dalbavancin doses according to blood culture results and follow up CT scan of the chest. Plans to keep him on doxycycline p.o. after IV dalbavancin were discussed. Appointment made for follow as outpatient (Refer to Dr Andrea's note on 12/20/2021 ). After discharge patient decided to take a dose of IV drugs on 01/10 and overdosed. By the time EMS and police arrived, the patient woke up on the stretcher. Due to a prior history, patient was incarcerated. Since then he has been without drugs, and hoping to be off them completely. Patient does have a Hx of prior heroin use and hepatitis C. He is also severely allergic to penicillin It looks like he had also a vancomycin reaction, with infusion site redness as well as redness over the neck and face, fever, tachycardia, most likely at serotonin release syndrome, from which he recovered within 10 to 15 minutes. On exam 01/21 he does have a swelling on the posterior aspect of the left heel, over the insertion of the Achilles tendons, with an open wound. He is unsure if this was rubbing on his shoe or white. Otherwise able to move his left ankle joint well. No cellulitis present, all the other joints that used to hurt him have recovered. He has no shortness of breath or cough and no fever. He is doing very well on room air and walking. Interval changes: 01/22 C alb in one BC only Unclear significance mostly wo fever or sepsis Yet w hx of IVDU it has to be taken seriously Asking for GIANFRANCO Start fluconazole 01/22 01/23 MRI left ankle + PM calcaneus and possible ankle abscess Fever resolved and only one BC has C alb Feels better Left ankle still edematous and await podiatry for surg plans Would rec exploration and at least bone biopsy for better AB coverage 01/25 Alert appropriate, not having fevers, going for debridement of the foot on 01/26 Repeat blood cultures are still negative Patient started on amphotericin B and caspofungin, continues on DAPT CPK 9 Long discussion counseling against drugs 01/26 Leukocytosis increased to 19.8 today S/p left foot I&D to level of the bone on 01/26/[address] Grewal with Podiatry. Bone culture was sent. Results pending He had an adverse reaction to amphotericin on 01/25 with significant lower back pain and IV site pain. The infusion was stopped and the IV removed. GIANFRANCO on 01/26/22 revealed continued tricuspid vegetation. CURRENT EVALUATION 01/28/2022 Patient Vitals for the past 8 hrs: BP Temp Temp src Pulse Resp SpO2 Weight 01/28/22 0724 (!) 98/57 130 24 01/28/22 0428 178 lb 2.1 oz (80.8 kg) 01/28/22 0415 113/75 97.7 F (36.5 C) Oral 108 23 96 % Single elevation of the temperature to 102.4 Heart rate 129 On room air Respiratory rate 26 SpO2: 97 The patient remains alert and oriented. He was feeling like he was experiencing opioid withdrawal overnight We will obtain blood cultures x2 and broaden the antibiotic treatment as a result of the temperature elevation, increase in respiratory rate and heart rate. Doxycycline held and tigecycline started, after repeat blood cultures Leukocytosis has resolved Post Op day 2 Dressing to LLE is clean, dry and intact He is to follow-up as an outpatient with Podiatry in one week. No other acute issues noted. Summary of relevant labs: Labs reviewed 01/28/2022: WBC: 8.2->19.8-->7.8 Hgb: 10.1-->9.4 Plt: 201-->178 CRP: 51.6 High BUN: 25 CREATININE: 0.93 Lactic Acid, Whole Blood: 3.3 High Sed Rate58 High Addkjknzfuesj69.47 High Micro: Blood: 12-13-21: MRSA x 2 12-16-21: MRSA x1 01-20-22: No growth X 4 01/21/2211/12 C albicans 01/23/22: No growth Wound: 12-16-21: Lt ankle bursa: No growth 12-16-21 Rt ankle bursa: MRSA 12-20-21 Rt shoulder fluid: No growth Imaging: MRI left ankle - 1. Osteomyelitis of the calcaneus with moderate amount of fluid within the retrocalcaneal bursa demonstrating pronounced peripheral enhancement. The fluid extends through the partially torn distal Achilles tendon to the adjacent soft tissues posteriorly. Findings suggesting septic bursitis with involvement of the distal Achilles tendon. There is underlying moderate to severe distal Achilles tendinosis. 2. Evidence for remote sprain of the intact anterior talofibular ligament. Xray left foot 1. Soft tissue swelling along the heel of the left foot. No evidence of osteomyelitis. I have personally reviewed the past medical history, past surgical history, medications, social history, and family history, and I haveupdated the database accordingly. Allergies: Pcn [penicillins] and Vancomycin Review of Systems: Review of Systems Constitutional: Negative for activity change, appetite change, diaphoresis and fatigue. HENT: Negative for congestion. Eyes: Negative for photophobia, pain, redness and itching. Respiratory: Negative for apnea. Cardiovascular: Negative for chest pain. Gastrointestinal: Negative for abdominal distention. Endocrine: Negative for polydipsia and polyuria. Genitourinary: Negative for dysuria. Musculoskeletal: Positive for arthralgias. Skin: Negative for color change. Allergic/Immunologic: Negative for food allergies. Neurological: Negative for dizziness, light-headedness and numbness. Hematological: Negative for adenopathy. Psychiatric/Behavioral: Negative for agitation. Physical Examination : Physical Exam Constitutional: General: He is not in acute distress. Appearance: Normal appearance. He is not ill-appearing. HENT: Head: Normocephalic. Nose: Nose normal. Mouth/Throat: Mouth: Mucous membranes are moist. Eyes: General: No scleral icterus. Conjunctiva/sclera: Conjunctivae normal. Cardiovascular: Rate and Rhythm: Normal rate and regular rhythm. Heart sounds: Normal heart sounds. No murmur heard. No friction rub. Pulmonary: Effort: No respiratory distress. Breath sounds: No stridor. No wheezing. Abdominal: General: There is no distension. Palpations: There is no mass. Tenderness: There is no abdominal tenderness. Genitourinary: Comments: No ortiz Musculoskeletal: General: Tenderness present. No deformity. Cervical back: Neck supple. No rigidity or tenderness. Left lower leg: Edema present. Skin: Coloration: Skin is not jaundiced or pale. Findings: No bruising, erythema, lesion or rash. Neurological: General: No focal deficit present. Mental Status: He is alert. Cranial Nerves: No cranial nerve deficit. Psychiatric: Mood and Affect: Mood normal. Thought Content: Thought content normal. Past Medical History: Past Medical History: Diagnosis Date Abscess 2020 left arm + MRSA Chronic hepatitis C without hepatic coma (HCC) COPD (chronic obstructive pulmonary disease) (HCC) Depression Drug addiction (HCC) heroin Past Surgical History: Past Surgical History: Procedure Laterality Date ABSCESS DRAINAGE Left 2019 arm APPENDECTOMY FINGER SURGERY Right 5 th finger tendon repair FOOT SURGERY Left 01/26/2022 INCISION AND DRAINAGE, BONE LEFT CALCANEOUS (Left Foot) PICC INSERTION VASCULAR ACCESS TEAM 01/25/2022 TYMPANOSTOMY TUBE PLACEMENT Bilateral Medications: sodium chloride flush 5-40 mL IntraVENous 2 times per day bupivacaine liposome 10 mL Infiltration Once doxycycline hyclate 100 mg Oral 2 times per day sodium chloride flush 5-40 mL IntraVENous 2 times per day caspofungin (CANCIDAS) IVPB 150 mg IntraVENous Q24H insulin lispro 0-6 Units SubCUTAneous TID WC insulin lispro 0-3 Units SubCUTAneous Nightly enoxaparin 40 mg SubCUTAneous Daily Social History: Social History Socioeconomic History Marital status: Single Spouse name: Not on file Number of children: Not on file Years of education: Not on file Highest education level: Not on file Occupational History Not on file Tobacco Use Smoking status: Former Smoker Smokeless tobacco: Never Used Substance and Sexual Activity Alcohol use: No Drug use: Yes Types: Cocaine, Opiates , Marijuana ([place]), Methamphetamines (Crystal Meth) Comment: quit heroin Nov Sexual activity: Not on file Other Topics Concern Not on file Social History Narrative Not on file Social Determinants of Health Financial Resource Strain: Difficulty of Paying Living Expenses: Not on file Food Insecurity: Worried About Running Out of Food in the Last Year: Not on file Ran Out of Food in the Last Year: Not on file Transportation Needs: Lack of Transportation (Medical): Not on file Lack of Transportation (Non-Medical): Not on file Physical Activity: Days of Exercise per Week: Not on file Minutes of Exercise per Session: Not on file Stress: Feeling of Stress : Not on file Social Connections: Frequency of Communication with Friends and Family: Not on file Frequency of Social Gatherings with Friends and Family: Not on file Attends Bahai Services: Not on file Active Member of Clubs or Organizations: Not on file Attends Club or Organization Meetings: Not on file Marital Status: Not on file Intimate Partner Violence: Fear of Current or Ex-Partner: Not on file Emotionally Abused: Not on file Physically Abused: Not on file Sexually Abused: Not on file Housing Stability: Unable to Pay for Housing in the Last Year: Not on file Number of Places Lived in the Last Year: Not on file Unstable Housing in the Last Year: Not on file Family History: Family History Problem Relation Age of Onset Cancer Mother skin No Known Problems Father Diabetes Maternal Grandmother Diabetes Maternal Grandfather Medical Decision Making: I have independently reviewed/ordered the following labs: CBC with Differential: Recent Labs 01/27/2262101/28/22 0436 WBC 19.8* 7.8 HGB 10.1* 9.4* HCT 31.8* 30.1* PLT 201 178 LYMPHOPCT 7* 18* MONOPCT 4 6 BMP: Recent Labs 01/27/2262101/28/22 0436 NA 136 137 K 4.4 3.5* CL 101 103 CO2 24 20 BUN 25* 29* CREATININE 0.93 0.98 MG -- 1.7 Hepatic Function Panel: Recent Labs 01/27/2262101/28/22435 PROT 7.2 6.4 LABALBU 3.1* 3.0* BILIDIR 0.09 <0.08 IBILI 0.21 Can not be calculated BILITOT 0.30 <0.10* ALKPHOS 87 96 ALT 27 21 AST 14 10 No results for input(s): RPR in the last 72 hours. No results for input(s): HIV in the last 72 hours. No results for input(s): BC in the last 72 hours. Lab Results Component Value Date CREATININE 0.98 01/28/2022 GLUCOSE 153 01/28/2022 Detailed results: Contains abnormal data Culture, Blood 1 Order: [id number] Status: Final result Visible to patient: No (not released) Next appt: None Specimen Information: Blood 0 Result Notes Component 12/13/212155 Specimen Description .BLOOD Special Requests RT AC 10 ML Culture POSITIVE Blood Culture Abnormal Culture DIRECT GRAM STAIN FROM BOTTLE: GRAM POSITIVE COCCI IN CLUSTERS Culture Abnormal Staphylococcus aureus Detected: mecA/C and MREJ Gene Detected- Methicillin Resistant Organism Methodology- Polymerase Chain Reaction (PCR) Culture METHICILLIN RESISTANT STAPHYLOCOCCUS AUREUS Abnormal Culture (NOTE) Direct Gram Stain from bottle and Polymerase Chain Reaction (PCR) results called to and read back by:DIANE Martinez AT 1440 ON 12/14/2021 Resulting Agency [facility] Susceptibility Methicillin resistant staphylococcus aureus (4) Antibiotic Interpretation Microscan Method Status penicillin Resistant >=0.5 BACTERIAL SUSCEPTIBILITY PANEL BERENICE Final cefoxitin screen NOT REPORTED BACTERIAL SUSCEPTIBILITY PANEL BERENICE Final ciprofloxacin NOT REPORTED BACTERIAL SUSCEPTIBILITY PANEL BERENICE Final clindamycin Sensitive <=0.25 BACTERIAL SUSCEPTIBILITY PANEL BERENICE Final erythromycin Resistant >=8 BACTERIAL SUSCEPTIBILITY PANEL BERENICE Final gentamicin Sensitive <=0.5 BACTERIAL SUSCEPTIBILITY PANEL BERENICE Final gentamicin Sensitive Gentamicin is used only in combination with other active agents that test susceptible. BACTERIAL SUSCEPTIBILITY PANEL BERENICE Final Induced Clind Resist Negative NEGATIVE BACTERIAL SUSCEPTIBILITY PANEL BERENICE Final levofloxacin Sensitive 0.25 BACTERIAL SUSCEPTIBILITY PANEL BERENICE Final linezolid NOT REPORTED BACTERIAL SUSCEPTIBILITY PANEL BERENICE Final moxifloxacin NOT REPORTED BACTERIAL SUSCEPTIBILITY PANEL BERENICE Final nitrofurantoin NOT REPORTED BACTERIAL SUSCEPTIBILITY PANEL BERENICE Final oxacillin Resistant >=4 BACTERIAL SUSCEPTIBILITY PANEL BERENICE Final Synercid NOT REPORTED BACTERIAL SUSCEPTIBILITY PANEL BERENICE Final rifampin NOT REPORTED BACTERIAL SUSCEPTIBILITY PANEL BERENICE Final tetracycline Sensitive <=1 BACTERIAL SUSCEPTIBILITY PANEL BERENICE Final tigecycline NOT REPORTED BACTERIAL SUSCEPTIBILITY PANEL BERENICE Final trimethoprim-sulfamethoxazole Sensitive <=10 BACTERIAL SUSCEPTIBILITY PANEL BERENICE Final vancomycin Sensitive <=0.5 BACTERIAL SUSCEPTIBILITY PANEL BERENICE Final Specimen Collected: 12/13/21 21:56 Last Resulted: 12/15/21 22:08 Thank you for allowing us to participate in the care of this patient.Please call with questions. This note is created with the assistance of a speech recognition program. While intending to generate adocument that actually reflects the content of the visit, the document can still have some errors including those of syntax and sound a like substitutions which may escape proof reading. It such instances, actual meaningcan be extrapolated by contextual diversion. Chasity Matos APRN - [facility] Office: Perfect serve / office [phone] Images from the original note were not included. [facility] Office: [phone] Mikie Rodriguez DO, Theo Leram DO, Stuart Natarajan DO, Harpal Tran DO, Prashanth Sadler MD, Deana Raza MD, Florencia Canela MD, Tess Ford MD, Yuliana Saenz MD, Leodan Mak MD, Marimar Ren MD, Fabricio Syed DO, Kyle Broussard DO, Juan Driver MD, Sophia Agustin DO, Lyle Woods MD, Jodi Bain MD, Palomo Drummond MD, Johann Rodriguez DO, Radha Avila MD, Alberto Perez MD, Teresa Quintero CNP, Tika Hernandez MARINE EQUIPMENT SALES ENGINEER, Mary Meléndez, MARINE EQUIPMENT SALES ENGINEER, Cathleen Moran, HAIR BLENDER, Abdirahman Bella, MARINE EQUIPMENT SALES ENGINEER, Leslie Rao, MARINE EQUIPMENT SALES ENGINEER, Madalyn Julien, MARINE EQUIPMENT SALES ENGINEER, Ro Bernard, MARINE EQUIPMENT SALES ENGINEER, Carter Charles MARINE EQUIPMENT SALES ENGINEER, Mckayla Abraham PA-C, Eli Fu DNP, Razia Figueroa DNP, Keri Walker CNP, Sherrie Rea CNP, Moon Waldrop CNP, Ethel Soto CNP, Jazzy Javier CNP, Shelli Menon CNP [facility] IN-PATIENT SERVICE [facility] Progress Note 01/28/2022 8:29 AM Name: Tip Ansari Acct: [id number] Room: IP Day: 8 Admit Date: 01/20/2022 10:23 PM PCP: No primary care provider on file. Code Status: Full Code Subjective: C/C: rigors Interval History Status: not changed. Pt seen and examined this morning. Postop day #2 from I&D of the heel down to the bone. Overnight, patient with worsening tachycardia. Received IV Lopressor. Reports that he was feeling cold and shaky. States that he feels like he is withdrawing. States that he needs to have a bowel movement, but is unable to. States that this typically happens when he is withdrawing from opiates. Received 200 mg of fentanyl during surgery. Reports that he is having a hard time getting a good deep breath. Otherwise, pain is well controlled and he is tolerating a diet. Brief History: Mr. Tip Ansari is a 42 year old gentleman who initially presented to [facility] ED from the local fdc after he developed acute onset chills and shaking. He noted a wound to his left foot as well. Onset was abrupt, as he felt well earlier in the day. Patient was previously at [facility] in December for MRSA bacteremia with tricuspid valve vegetation. He was discharged on dalbavancin weekly x2 weeks in the infusion center with planned follow up CT and echocardiogram. In addition he was found to have septic arthritis of the right knee and left wrist (also positive for MRSA). In addition patient was found to be stool occult blood positive and lateral multifocal scattered nodular opacities in lung with cavitation which was presumed to be septic emboli. The occult blood resolved itself after being placed on vancomycin and patient was discharged back to fdc CT imaging in the ER revealed no evidence for PE, but with scattered airspace opacities are present throughout the lungs bilaterally to a mild degree, overall improved from prior, possibly representing residual pneumonia. Podiatry and ID have evaluated the patient. He is growing nathaniel in his blood and is on IV diflucan. -GIANFRANCO performed on 01/24 -MRI reveals osteomyelitis of the calcaneus with moderate amount of fluid within the retrocalcaneal bursa demonstrated pronounced peripheral enhancement suggesting septic bursitis with involvement of the distal Achilles tendon. -Underwent I&D with podiatry on 01/26 -? Withdrawal after fentanyl in OR Review of Systems: Constitutional: Reports chills and sweats; negative for fevers Respiratory: Reports shortness of breath; negative for cough, dyspnea on exertion, wheezing Cardiovascular: Reports palpitations; negative for chest pain, chest pressure/discomfort, lower extremity edema Gastrointestinal: Reports constipation; negative for abdominal pain, diarrhea, nausea, vomiting Neurological: negative for dizziness, headache MSK: Reports left heel pain is controlled Medications: Allergies: Allergies Allergen Reactions Pcn [Penicillins] Anaphylaxis Vancomycin Other (See Comments) Fever and hives chest - despite very slow infusion Current Meds: Scheduled Meds: sodium chloride flush 5-40 mL IntraVENous 2 times per day bupivacaine liposome 10 mL Infiltration Once doxycycline hyclate 100 mg Oral 2 times per day metoprolol succinate 25 mg Oral Daily sodium chloride flush 5-40 mL IntraVENous 2 times per day caspofungin (CANCIDAS) IVPB 150 mg IntraVENous Q24H insulin lispro 0-6 Units SubCUTAneous TID WC insulin lispro 0-3 Units SubCUTAneous Nightly enoxaparin 40 mg SubCUTAneous Daily Continuous Infusions: sodium chloride sodium chloride 25 mL (01/27/220) dextrose PRN Meds: ketorolac, sodium chloride flush, sodium chloride, sodium chloride flush, sodium chloride, diphenhydrAMINE, traMADol OR traMADol, traZODone, glucose, dextrose, glucagon (rDNA), dextrose, melatonin, hydrOXYzine, potassium chloride OR potassium alternative oral replacement OR potassium chloride, magnesium sulfate, ondansetron OR ondansetron, polyethylene glycol, acetaminophen OR acetaminophen Data: Past Medical History: has a past medical history of Abscess, Chronic hepatitis C without hepatic coma (HCC), COPD (chronic obstructive pulmonary disease) (HCC), Depression, and Drug addiction (HCC). Social History: reports that he has quit smoking. He has never used smokeless tobacco. He reports current drug use. Drugs: Cocaine, Opiates , Marijuana ([place]), and Methamphetamines (Crystal Meth). He reports that he does not drink alcohol. Family History: Family History Problem Relation Age of Onset Cancer Mother skin No Known Problems Father Diabetes Maternal Grandmother Diabetes Maternal Grandfather Vitals: BP (!) 98/57 Pulse 130 Temp 97.7 F (36.5 C) (Oral) Resp 24 Ht 6' (1.829 m) Wt 178 lb 2.1 oz (80.8 kg) SpO2 96% BMI 24.16 kg/m Temp (24hrs), Av.7 F (36.5 C), Min:97.6 F (36.4 C), Max:97.8 F (36.6 C) No results for input(s): POCGLU in the last 72 hours. I/O (24Hr): Intake/Output Summary (Last 24 hours) at 01/28/2022 0829 Last data filed at 01/28/2022 0700 Gross per 24 hour Intake 962.85 ml Output 550 ml Net 412.85 ml Labs: Hematology: Recent Labs 01/26/22 0458 01/27/22 0622 01/28/22 0436 WBC 8.2 19.8* 7.8 RBC 3.85* 3.67* 3.34* HGB 10.7* 10.1* 9.4* HCT 33.3* 31.8* 30.1* MCV 86.5 86.6 90.1 MCH 27.8 27.5 28.1 MCHC 32.1 31.8 31.2 RDW 16.6* 16.1* 16.6* PLT 183 201 178 MPV 8.7 9.2 8.8 Chemistry: Recent Labs 01/26/22 0458 01/27/22 0622 01/28/22 0436 NA 137 136 137 K 4.2 4.4 3.5* CL 104 101 103 CO2 21 24 20 GLUCOSE 123* 187* 153* BUN 26* 25* 29* CREATININE 0.95 0.93 0.98 MG -- -- 1.7 ANIONGAP 12 11 14 LABGLOM >60 >60 >60 GFRAA >60 >60 >60 CALCIUM 9.5 9.1 8.9 CKTOTAL 10* 11* 8* Recent Labs 01/26/22 0458 01/27/22 0622 01/28/22 0436 PROT 8.0 7.2 6.4 LABALBU 3.1* 3.1* 3.0* AST 19 14 10 ALT 30 27 21 ALKPHOS 99 87 96 BILITOT 0.21* 0.30 <0.10* BILIDIR <0.08 0.09 <0.08 ABG: Lab Results Component Value Date PHART 7.380 12/16/2020 MPQ0VCL 44.5 12/16/2020 PO2ART 94.4 12/16/2020 [id number] 25.7 12/16/2020 NBEA NOT REPORTED 12/16/2020 PBEA 0.3 12/16/2020 [id number] 97.1 12/16/2020 FIO2 28 12/16/2020 Lab Results Component Value Date/Time SPECIAL RIGHT FOREARM 20ML 01/23/2022 12:11 AM SPECIAL RIGHT HAND 20ML 01/23/2022 12:11 AM Lab Results Component Value Date/Time CULTURE NO GROWTH 5 DAYS 01/23/2022 12:11 AM CULTURE NO GROWTH 5 DAYS 01/23/2022 12:11 AM Radiology: XR CALCANEUS LEFT (MIN 2 VIEWS) Result Date: 01/21/2022 1. Soft tissue swelling along the heel of the left foot. No evidence of osteomyelitis. XR CHEST PORTABLE Result Date: 01/20/2022 Diffuse interstitial opacities may represent mild edema or atypical infection. CT CHEST PULMONARY EMBOLISM W CONTRAST Result Date: 01/20/2022 No evidence of pulmonary embolism or acute thoracic aortic abnormality. Improving aeration. Scattered airspace opacities are present throughout the lungs bilaterally to a mild degree, overall improved from prior, possibly representing residual pneumonia. Physical Examination: General appearance: alert, cooperative and no distress, pleasant, sitting up in bed Mental Status: oriented to person, place and time and normal affect Lungs: clear to auscultation bilaterally, normal effort Heart: tachycardia (130 bpm) with regular rhythm, no murmur Abdomen: soft, nontender, nondistended, normal bowel sounds, no masses, hepatomegaly, splenomegaly Extremities: no edema, redness, tenderness in the calves, left upper extremity PICC line present, left lower extremity in boot, wrapped with Alireza bandage Skin: no gross lesions, rashes, induration Assessment: Hospital Problems Last Modified POA * (Principal) Sepsis due to Nathaniel species without acute organ dysfunction (HCC) 01/23/2022 Yes 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 Sepsis likely due to Nathaniel fungemia - continue antifungals at infectious disease's discretion, appreciate ophthalmology evaluation. Tolerated his second dose of amphotericin overnight. 2. Amphotericin reaction should improve after several doses. Appreciate further guidance from infectious disease. He did tolerate his second dose much better than the first. He is agreeable to continue at this time. 3. Septic pulmonary emboli from previous endocarditis continue oral doxycycline 100 mg twice daily 4. Tricuspid valve endocarditis CT surgery evaluation - complete course of IV anti-fungals. Then repeat echo. May need debulking, per ID 5. Left ankle osteomyelitis, acute - significant infection of the retrocalcaneal bursal sac, partially torn Achilles tendon with Achilles tendinosis, and calcaneal osteomyelitis. Postop day #2 from I&D with podiatry. Await bone culture. Podiatry has signed off. Boot present. 6. Heroin abuse - SW and case management following. Working on LTAC at discharge. Avoid opiates. 7. Sinus tachycardia please do not utilize beta-blockers to treat this. Treat underlying cause. Today, we are focusing on producing a bowel movement and assisting him through any sort of opiate withdrawal. 8. History of Hepatitis C 9. Essential hypertension - continue Maxide 10. Daily labs 11. Pain control with Toradol and Tylenol. Avoid opiates. 12. Disposition: Awaiting culture data and social work/CM is working on placement issues. FABRICIO SYED DO 01/28/2022 8:29 AM Images from the original note were not included. Progress Note Podiatric Medicine and Surgery Subjective CC: Ankle pain, left Patient seen and examined at bedside. OR for I&D in the PM S/p I&D of left heel (01/26/2022) Pain is well controlled. HPI : Tip Ansari is a 42 y.o. male seen at [facility] for possible septic arthritis of the left ankle. Patient has extensive history of IV drug abuse, he was most recently admitted in December 2021 for concerns of multiple septic joints which resulted in negative cultures. He is known pulmonary septic emboli, tricuspid endocarditis secondary to MRSA infection which are improving since previous admission. He presents today with persistent concerns for infection to the left ankle. He was evaluated by the infectious disease team earlier today who placed MRI ordered for left ankle. Patient states there has been a superficial draining wound to the posterior aspect of the left ankle for approximately 2 weeks. He states at one point drainage and pain were much worse than currently presenting. He has mild discomfort with moving the ankle. States that he has not used any illicit drugs since 01/10/22. Denies injecting into the lower extremity. Denies trauma to the area. ROS: Denies N/V/F/C/SOB/CP. Otherwise negative except at stated in the HPI. Medications: Scheduled Meds: sodium chloride flush 5-40 mL IntraVENous 2 times per day bupivacaine liposome 10 mL Infiltration Once doxycycline hyclate 100 mg Oral 2 times per day metoprolol succinate 25 mg Oral Daily sodium chloride flush 5-40 mL IntraVENous 2 times per day caspofungin (CANCIDAS) IVPB 150 mg IntraVENous Q24H amphotericin B liposome (AMBISOME) IVPB 5 mg/kg IntraVENous Q24H insulin lispro 0-6 Units SubCUTAneous TID WC insulin lispro 0-3 Units SubCUTAneous Nightly enoxaparin 40 mg SubCUTAneous Daily Continuous Infusions: sodium chloride sodium chloride Stopped (01/25/22 184) dextrose PRN Meds:ketorolac, sodium chloride flush, sodium chloride, sodium chloride flush, sodium chloride, diphenhydrAMINE, traMADol OR traMADol, traZODone, glucose, dextrose, glucagon (rDNA), dextrose, melatonin, hydrOXYzine, potassium chloride OR potassium alternative oral replacement OR potassium chloride, magnesium sulfate, ondansetron OR ondansetron, polyethylene glycol, acetaminophen OR acetaminophen Objective Vitals: Patient Vitals for the past 8 hrs: BP Temp Temp src Pulse Resp SpO2 01/27/22 0705 114/62 97.7 F (36.5 C) Oral 104 23 95 % 01/27/22 0420 113/69 97.9 F (36.6 C) Oral 99 22 97 % Average, Min, and Max for last 24 hours Vitals: TEMPERATURE: Temp Av F (36.1 C) Min: 96.5 F (35.8 C) Max: 98.1 F (36.7 C) RESPIRATIONS RANGE: Resp Av.6 Min: 0 Max: 36 PULSE RANGE: Pulse Av Min: 95 Max: 108 BLOOD PRESSURE RANGE: Systolic (24hrs), Av , Min:86 , Max:153 ; Diastolic (24hrs), Av, Min:60, Max:97 PULSE OXIMETRY RANGE: SpO2 Av.6 % Min: 87 % Max: 100 % I/O last 3 completed shifts: In: 300 [I.V.:300] Out: 600 [Urine:600] CBC: Recent Labs 01/25/2246 01/26/2245701/27/22621 WBC 9.0 8.2 19.8* HGB 10.6* 10.7* 10.1* HCT 34.5* 33.3* 31.8* PLT 189 183 201 BMP: Recent Labs 01/25/22 0546 01/26/2245701/27/22621 NA 139 137 136 K 4.4 4.2 4.4 CL 105 104 101 CO2 20 21 24 BUN 19 26* 25* CREATININE 0.82 0.95 0.93 GLUCOSE 109* 123* 187* CALCIUM 9.0 9.5 9.1 Coags: Recent Labs 01/25/22 0546 01/26/2245701/27/22621 PROT 7.5 8.0 7.2 Lab Results Component Value Date SEDRATE 58 (H) 01/21/2022 No results for input(s): CRP in the last 72 hours. Physical Exam: dressing remains intact following surgery. Capillary refill intact to the digits. Mild pain to palpation of posterior leg. Imaging: FLUORO FOR SURGICAL PROCEDURES Final Result MRI ANKLE LEFT W WO CONTRAST Final Result 1. Osteomyelitis of the calcaneus with moderate amount of fluid within the retrocalcaneal bursa demonstrating pronounced peripheral enhancement. The fluid extends through the partially torn distal Achilles tendon to the adjacent soft tissues posteriorly. Findings suggesting septic bursitis with involvement of the distal Achilles tendon. There is underlying moderate to severe distal Achilles tendinosis. 2. Evidence for remote sprain of the intact anterior talofibular ligament. XR CALCANEUS LEFT (MIN 2 VIEWS) Final Result 1. Soft tissue swelling along the heel of the left foot. No evidence of osteomyelitis. Cultures: None we will obtain in OR Assessment Tip Ansari is a 42 y.o. male with 1. Subacute osteomyelitis of calcaneus, left lower extremity 2. Possible subacute abscess of ankle, left lower extremity 3. History of IV drug abuse 4. Hepatitis C 5. Peripheral neuropathy Principal Problem: Sepsis due to Nathaniel species without acute organ dysfunction (HCC) Active Problems: Sinus tachycardia Septic bursitis of Achilles Heroin abuse (HCC) Hepatitis C virus infection without hepatic coma Endocarditis of tricuspid valve Moderate tricuspid regurgitation Hyperglycemia Acute osteomyelitis of left calcaneus (HCC) Resolved Problems: * No resolved hospital problems. * Plan Patient examined and evaluated at bedside All treatment options discussed in detail with the patient Medicine as primary team for medical management ID following Dressing to intact to Left lower extremity until follow-up with Dr. Grewal. Weightbearing as tolerated to Left lower extremity in CAM boot only. No purulence found during surgery yesterday. Tramadol at discharge for pain control No further podiatric surgical intervention is planned at this time, podiatry will sign off. Please do not hesitate to contact the podiatry resident clerk travel reservations with any other questions or concerns. Follow-up with Dr. Grewal within [address] Aissatou White DPM Podiatric Medicine & Surgery 01/27/2022 at 12:05 PM Images from the original note were not included. [facility] Office: [phone] Mikie Rodriguez DO, Theo Lerma DO, Stuart Natarajan DO, Harpal Tran, DO, Prashanth Sadler MD, Deana Raza MD, Florencia Canela MD, Tess Ford MD, Yuliana Saenz MD, Leodan Mak MD, Marimar Ren MD, Fabricio Syed DO, Kyle Broussard DO, Juan Driver MD, Sophia Agustin DO, Lyle Woods MD, Jodi Bain MD, Palomo Drummond MD, Johann Rodriguez DO, Radha Avila MD, Alberto Perez MD, Teresa Quintero, MARINE EQUIPMENT SALES ENGINEER, Tika Hernandez, MARINE EQUIPMENT SALES ENGINEER, Mary Meléndez, MARINE EQUIPMENT SALES ENGINEER, Cathleen Moran, HAIR BLENDER, Abdirahman Bella, MARINE EQUIPMENT SALES ENGINEER, Leslie Rao, MARINE EQUIPMENT SALES ENGINEER, Madalyn Julien, MARINE EQUIPMENT SALES ENGINEER, Ro Bernard, MARINE EQUIPMENT SALES ENGINEER, Carter Charles, MARINE EQUIPMENT SALES ENGINEER, Mckayla Abraham PA-C, Eli Fu, DNP, Razia Figueroa, DNP, Keri Walker, MARINE EQUIPMENT SALES ENGINEER, Sherrie Rea, MARINE EQUIPMENT SALES ENGINEER, Moon Waldrop, MARINE EQUIPMENT SALES ENGINEER, Ethel Soto, MARINE EQUIPMENT SALES ENGINEER, Jazzy Javier, MARINE EQUIPMENT SALES ENGINEER, Shelli Menon, MARINE EQUIPMENT SALES ENGINEER [facility] IN-PATIENT SERVICE [facility] Progress Note 01/27/2022 11:00 AM Name: Tip Ansari Acct: [id number] Room: IP Day: 7 Admit Date: 01/20/2022 10:23 PM PCP: No primary care provider on file. Code Status: Full Code Subjective: C/C: rigors Interval History Status: not changed. Pt seen and examined this morning. Postop day #1 from I&D of the heel down to the bone. Patient reports he did not sleep last night secondary to pain. He tolerated his second infusion of amphotericin without many side effects. Tachycardic. Vital signs are otherwise stable. Brief History: Mr. Tip Ansari is a 42 year old gentleman who initially presented to [facility] ED from the local fdc after he developed acute onset chills and shaking. He noted a wound to his left foot as well. Onset was abrupt, as he felt well earlier in the day. Patient was previously at [facility] in December for MRSA bacteremia with tricuspid valve vegetation. He was discharged on dalbavancin weekly x2 weeks in the infusion center with planned follow up CT and echocardiogram. In addition he was found to have septic arthritis of the right knee and left wrist (also positive for MRSA). In addition patient was found to be stool occult blood positive and lateral multifocal scattered nodular opacities in lung with cavitation which was presumed to be septic emboli. The occult blood resolved itself after being placed on vancomycin and patient was discharged back to fdc CT imaging in the ER revealed no evidence for PE, but with scattered airspace opacities are present throughout the lungs bilaterally to a mild degree, overall improved from prior, possibly representing residual pneumonia. Podiatry and ID have evaluated the patient. He is growing nathaniel in his blood and is on IV diflucan. -GIANFRANCO performed on 01/24 -MRI reveals osteomyelitis of the calcaneus with moderate amount of fluid within the retrocalcaneal bursa demonstrated pronounced peripheral enhancement suggesting septic bursitis with involvement of the distal Achilles tendon. -Underwent I&D with podiatry on 01/26 Review of Systems: Constitutional: negative for chills, fevers, sweats Respiratory: negative for cough, dyspnea on exertion, shortness of breath, wheezing Cardiovascular: negative for chest pain, chest pressure/discomfort, lower extremity edema, palpitations Gastrointestinal: negative for abdominal pain, constipation, diarrhea, nausea, vomiting Neurological: negative for dizziness, headache MSK: Reports left heel pain Medications: Allergies: Allergies Allergen Reactions Pcn [Penicillins] Anaphylaxis Vancomycin Other (See Comments) Fever and hives chest - despite very slow infusion Current Meds: Scheduled Meds: sodium chloride flush 5-40 mL IntraVENous 2 times per day bupivacaine liposome 10 mL Infiltration Once doxycycline hyclate 100 mg Oral 2 times per day metoprolol succinate 25 mg Oral Daily lidocaine 1 % injection 5 mL IntraDERmal Once sodium chloride flush 5-40 mL IntraVENous 2 times per day morphine 4 mg IntraVENous Once caspofungin (CANCIDAS) IVPB 150 mg IntraVENous Q24H amphotericin B liposome (AMBISOME) IVPB 5 mg/kg IntraVENous Q24H insulin lispro 0-6 Units SubCUTAneous TID WC insulin lispro 0-3 Units SubCUTAneous Nightly enoxaparin 40 mg SubCUTAneous Daily Continuous Infusions: sodium chloride sodium chloride Stopped (01/25/22 1841) dextrose PRN Meds: sodium chloride flush, sodium chloride, sodium chloride flush, sodium chloride, diphenhydrAMINE, traMADol OR traMADol, traZODone, glucose, dextrose, glucagon (rDNA), dextrose, melatonin, hydrOXYzine, potassium chloride OR potassium alternative oral replacement OR potassium chloride, magnesium sulfate, ondansetron OR ondansetron, polyethylene glycol, acetaminophen OR acetaminophen Data: Past Medical History: has a past medical history of Abscess, Chronic hepatitis C without hepatic coma (HCC), COPD (chronic obstructive pulmonary disease) (HCC), Depression, and Drug addiction (HCC). Social History: reports that he has quit smoking. He has never used smokeless tobacco. He reports current drug use. Drugs: Cocaine, Opiates , Marijuana ([place]), and Methamphetamines (Crystal Meth). He reports that he does not drink alcohol. Family History: Family History Problem Relation Age of Onset Cancer Mother skin No Known Problems Father Diabetes Maternal Grandmother Diabetes Maternal Grandfather Vitals: BP 114/62 Pulse 104 Temp 97.7 F (36.5 C) (Oral) Resp 23 Ht 6' (1.829 m) Wt 160 lb 3.2 oz (72.7 kg) SpO2 95% BMI 21.73 kg/m Temp (24hrs), Av F (36.1 C), Min:96.5 F (35.8 C), Max:98.1 F (36.7 C) No results for input(s): POCGLU in the last 72 hours. I/O (24Hr): Intake/Output Summary (Last 24 hours) at 01/27/2022 1100 Last data filed at 01/27/2022 0215 Gross per 24 hour Intake 300 ml Output 600 ml Net -300 ml Labs: Hematology: Recent Labs 01/25/22 0546 01/26/22 0458 01/27/22 0622 WBC 9.0 8.2 19.8* RBC 3.85* 3.85* 3.67* HGB 10.6* 10.7* 10.1* HCT 34.5* 33.3* 31.8* MCV 89.6 86.5 86.6 MCH 27.5 27.8 27.5 MCHC 30.7 32.1 31.8 RDW 16.6* 16.6* 16.1* PLT 189 183 201 MPV 9.2 8.7 9.2 Chemistry: Recent Labs 01/25/22 0546 01/26/2245701/27/22621 NA 139 137 136 K 4.4 4.2 4.4 CL 105 104 101 CO2 20 21 24 GLUCOSE 109* 123* 187* BUN 19 26* 25* CREATININE 0.82 0.95 0.93 ANIONGAP 14 12 11 LABGLOM >60 >60 >60 GFRAA >60 >60 >60 CALCIUM 9.0 9.5 9.1 CKTOTAL 9* 10* 11* Recent Labs 01/25/22 0546 01/26/2245701/27/22621 PROT 7.5 8.0 7.2 LABALBU 3.0* 3.1* 3.1* AST 21 19 14 ALT 31 30 27 ALKPHOS 99 99 87 BILITOT 0.20* 0.21* 0.30 BILIDIR <0.08 <0.08 0.09 ABG: Lab Results Component Value Date PHART 7.380 12/16/2020 [id number] 44.5 12/16/2020 PO2ART 94.4 12/16/2020 [id number] 25.7 12/16/2020 NBEA NOT REPORTED 12/16/2020 PBEA 0.3 12/16/2020 [id number] 97.1 12/16/2020 FIO2 28 12/16/2020 Lab Results Component Value Date/Time SPECIAL RIGHT FOREARM 20ML 01/23/2022 12:11 AM SPECIAL RIGHT HAND 20ML 01/23/2022 12:11 AM Lab Results Component Value Date/Time CULTURE NO GROWTH 4 DAYS 01/23/2022 12:11 AM CULTURE NO GROWTH 4 DAYS 01/23/2022 12:11 AM Radiology: XR CALCANEUS LEFT (MIN 2 VIEWS) Result Date: 01/21/2022 1. Soft tissue swelling along the heel of the left foot. No evidence of osteomyelitis. XR CHEST PORTABLE Result Date: 01/20/2022 Diffuse interstitial opacities may represent mild edema or atypical infection. CT CHEST PULMONARY EMBOLISM W CONTRAST Result Date: 01/20/2022 No evidence of pulmonary embolism or acute thoracic aortic abnormality. Improving aeration. Scattered airspace opacities are present throughout the lungs bilaterally to a mild degree, overall improved from prior, possibly representing residual pneumonia. Physical Examination: General appearance: alert, cooperative and no distress, pleasant, sitting up in bed Mental Status: oriented to person, place and time and normal affect Lungs: clear to auscultation bilaterally, normal effort Heart: tachycardia (100 bpm) with regular rhythm, no murmur Abdomen: soft, nontender, nondistended, normal bowel sounds, no masses, hepatomegaly, splenomegaly Extremities: no edema, redness, tenderness in the calves, left upper extremity PICC line present, left heel wrapped with Alireza bandage Skin: no gross lesions, rashes, induration Assessment: Hospital Problems Last Modified POA * (Principal) Sepsis due to Nathaniel species without acute organ dysfunction (HCC) 01/23/2022 Yes Endocarditis of tricuspid valve 01/23/2022 Yes Sinus tachycardia 01/23/2022 Yes Septic bursitis of Achilles 01/24/2022 Clinically Undetermined Heroin abuse (HCC) 01/23/2022 Yes Moderate tricuspid regurgitation 01/23/2022 Yes Hepatitis C virus infection without hepatic coma 01/23/2022 Yes Hyperglycemia 01/23/2022 Yes Acute osteomyelitis of left calcaneus ([facility]) 01/26/2022 Yes Plan: 1. Sepsis likely due to Nathaniel fungemia - continue antifungals at infectious disease's discretion, appreciate ophthalmology evaluation. Tolerated his second dose of amphotericin overnight. 2. Amphotericin reaction should improve after several doses. Appreciate further guidance from infectious disease. He did tolerate his second dose much better than the first. He is agreeable to continue at this time. 3. Septic pulmonary emboli from previous endocarditis continue oral doxycycline 100 mg twice daily 4. Tricuspid valve endocarditis CT surgery evaluation - complete course of IV anti-fungals. Then repeat echo. May need debulking, per ID 5. Left ankle soft tissue infection - significant infection of the retrocalcaneal bursal sac, partially torn Achilles tendon with Achilles tendinosis, and calcaneal osteomyelitis. Postop day #1 from I&D with podiatry. Await bone culture. 6. Heroin abuse - SW and case management following. Working on LTAC at discharge. 7. History of Hepatitis C 8. Essential hypertension - continue Maxide 9. Daily labs 10. Pain control with Toradol and Tylenol. Avoid opiates. 11. Disposition: Awaiting culture data and social work/CM is working on placement issues. FABRICIO SYED DO 01/27/2022 11:00 AM Images from the original note were not included. [facility] - Infectious diseases evaluation Progress Note admission date 01/20/2022 reason for consultation: Sepsis Vanco allergy Impression : Current: Left calcaneal Osteomyelitis Partially torn left Achilles tendon with Achilles tendonitis Septic bursitis of left heel. s/p I&D 01/26/22 Currently on doxycyline because of allergic reaction to Vancomycin Vancomycin reaction- Tachycardia, fever, red neck syndrome in [place] s/p 2 doses of Vancomycin. Likely serotonin release syndrome. Hx of Anaphylaxis to penicillin questionable if he ever tried cephalosporins 01/21 candidemia x 1 - C. Albicans On treatment with IV Caspofungin. Stop date 02-05-22 This could be switched to high dose po fluconazole as the patient improves Prior Tricuspid valve endocarditis, MRSA on 12-13-21 Treated with vancomycin and then 2 doses of dalbavancin as an outpatient. No sign of relapse of MRSA endocarditis as multiple blood cultures show no growth Has residual original tricuspid vegetation Prior Pulmonary septic emboli with MRSA in December 2021. cavitations resolved per CT chest 01-20-22 Recent Pulmonary septic emboli with cavitary pneumonia-MRSA Tricuspid endocarditis with vegetation and MRSA septicemia MRSA infected left wrist, right knee, Suspected arthritis but culture negative, left ankle and right shoulder. Heroin use, hepatitis C Discussion / summary of stay / plan of care Patient with history of prior heroin abuse Seen initially on 12/13/2021 with MRSA tricuspid valve endocarditis, multiple metastatic foci at different joints, septic pulmonary emboli with central cavitations. Was treated for the MRSA endocarditis successfully as multiple subsequent blood cultures have shown no growth. However, GIANFRANCO 01/26/2022 shows residual tricuspid vegetation CTS to eval for possible TV replacement or aspiration of the tricuspid vegetation CT scan on 01/20/2022 shows resolution of previous cavitations within prior septic emboli Presented on current admission with a swelling of the left ankle Left ankle MRI septic joint and OM calcaneus. He is a status post surgical intervention on 01/26/22 per Podiatry Blood culture on 01/21/2022 shows growth of Nathaniel albicans x1 Patient receiving treatment with Cancidas for a period of 2 weeks. Recommendations For Fungemia: BC nathaniel albicans x 1 on 01-21-22 Ambisome 366 mg IV Q 24 hours initiated 01/24/22. Stopped 01-27-22 Cancidas 150 mg IV Q 24 hours initiated 01/25/22. Plan 14 days of treatment. Stop date 02-07-22 For MRSA bone infection PO Doxycycline 100 mg BID initiated 01/27/22 Await bone culture results from left foot I&D on 01/26/22 Infection Control Recommendations [place] Precautions Contact Isolation Antimicrobial Stewardship Recommendations Simplification of therapy IV to oral conversion Coordination ofOutpatient Care: Estimated Length of IV antimicrobials: Patient will need Midline / picc Catheter Insertion: Patient will need SNF: Patient will need outpatient wound care: History of Present Illness: Initial history: Tip Ansari is a 42 y.o.-year-old male [facility] because of rigors and fever as well as a left foot wound that seems to have started suddenly in [facility] Recently seen 12/13/[address] Andrea at [facility] for MRSA septicemia, right knee septic arthritis, left wrist septic arthritis, MRSA was cultured. He also had left ankle joint pain but cultures were negative. In addition he had right shoulder pain. Attempts at aspiration yielded dry taps twice. He also had multifocal pulmonary opacities with cavitations on CT scan of the chest, suggestive of septic emboli, and a tricuspid valve vegetation. Patient was admitted 12/13/21 and discharged on 12/20 with plans for dalbavancin weekly X2 and then to follow with more dalbavancin doses according to blood culture results and follow up CT scan of the chest. Plans to keep him on doxycycline p.o. after IV dalbavancin were discussed. Appointment made for follow as outpatient (Refer to Dr Andrea's note on 12/20/2021 ). After discharge patient decided to take a dose of IV drugs on 01/10 and overdosed. By the time EMS and police arrived, the patient woke up on the stretcher. Due to a prior history, patient was incarcerated. Since then he has been without drugs, and hoping to be off them completely. Patient does have a Hx of prior heroin use and hepatitis C. He is also severely allergic to penicillin It looks like he had also a vancomycin reaction, with infusion site redness as well as redness over the neck and face, fever, tachycardia, most likely at serotonin release syndrome, from which he recovered within 10 to 15 minutes. On exam 01/21 he does have a swelling on the posterior aspect of the left heel, over the insertion of the Achilles tendons, with an open wound. He is unsure if this was rubbing on his shoe or white. Otherwise able to move his left ankle joint well. No cellulitis present, all the other joints that used to hurt him have recovered. He has no shortness of breath or cough and no fever. He is doing very well on room air and walking. Interval changes: 01/22 C alb in one BC only Unclear significance mostly wo fever or sepsis Yet w hx of IVDU it has to be taken seriously Asking for GIANFRANCO Start fluconazole 01/22 01/23 MRI left ankle + PM calcaneus and possible ankle abscess Fever resolved and only one BC has C alb Feels better Left ankle still edematous and await podiatry for surg plans Would rec exploration and at least bone biopsy for better AB coverage 01/25 Alert appropriate, not having fevers, going for debridement of the foot on 01/26 Repeat blood cultures are still negative Patient started on amphotericin B and caspofungin, continues on DAPT CPK 9 Long discussion counseling against drugs CURRENT EVALUATION 01/27/2022 Patient Vitals for the past 8 hrs: BP Temp Temp src Pulse Resp SpO2 01/27/22 0705 114/62 97.7 F (36.5 C) Oral 104 23 95 % 01/27/22 0420 113/69 97.9 F (36.6 C) Oral 99 22 97 % Afebrile VS Stable on room air SpO2: 96 The patient remains alert and oriented with no acute issues noted. Leukocytosis increased to 19.8 today S/p left foot I&D to level of the bone on 01/26/[address] Grewal with Podiatry. Bone culture was sent. Results pending He had an adverse reaction to amphotericin on 01/25 with significant lower back pain and IV site pain. The infusion was stopped and the IV removed. GIANFRANCO on 01/26/22 revealed continued tricuspid vegetation. Dressing to LLE is clean, dry and intact Summary of relevant labs: Labs reviewed 01/27/2022: WBC: 8.2->19.8 Hgb: 10.1 Plt: 201 CRP: 51.6 High BUN: 25 CREATININE: 0.93 Lactic Acid, Whole Blood: 3.3 High Sed Rate58 High [id number] High Micro: Blood: 12-13-21: MRSA x 2 12-16-21: MRSA x1 01-20-22: No growth X 4 01/21/22 1/2 C albicans 01/23/22: No growth Wound: 12-16-21: Lt ankle bursa: No growth 12-16-21 Rt ankle bursa: MRSA 12-20-21 Rt shoulder fluid: No growth Imaging: MRI left ankle - 1. Osteomyelitis of the calcaneus with moderate amount of fluid within the retrocalcaneal bursa demonstrating pronounced peripheral enhancement. The fluid extends through the partially torn distal Achilles tendon to the adjacent soft tissues posteriorly. Findings suggesting septic bursitis with involvement of the distal Achilles tendon. There is underlying moderate to severe distal Achilles tendinosis. 2. Evidence for remote sprain of the intact anterior talofibular ligament. Xray left foot 1. Soft tissue swelling along the heel of the left foot. No evidence of osteomyelitis. I have personally reviewed the past medical history, past surgical history, medications, social history, and family history, and I haveupdated the database accordingly. Allergies: Pcn [penicillins] and Vancomycin Review of Systems: Review of Systems Constitutional: Negative for activity change, appetite change, diaphoresis and fatigue. HENT: Negative for congestion. Eyes: Negative for photophobia, pain, redness and itching. Respiratory: Negative for apnea. Cardiovascular: Negative for chest pain. Gastrointestinal: Negative for abdominal distention. Endocrine: Negative for polydipsia and polyuria. Genitourinary: Negative for dysuria. Musculoskeletal: Positive for arthralgias. Skin: Negative for color change. Allergic/Immunologic: Negative for food allergies. Neurological: Negative for dizziness, light-headedness and numbness. Hematological: Negative for adenopathy. Psychiatric/Behavioral: Negative for agitation. Physical Examination : Physical Exam Constitutional: General: He is not in acute distress. Appearance: Normal appearance. He is not ill-appearing. HENT: Head: Normocephalic. Nose: Nose normal. Mouth/Throat: Mouth: Mucous membranes are moist. Eyes: General: No scleral icterus. Conjunctiva/sclera: Conjunctivae normal. Cardiovascular: Rate and Rhythm: Normal rate and regular rhythm. Heart sounds: Normal heart sounds. No murmur heard. No friction rub. Pulmonary: Effort: No respiratory distress. Breath sounds: No stridor. No wheezing. Abdominal: General: There is no distension. Palpations: There is no mass. Tenderness: There is no abdominal tenderness. Genitourinary: Comments: No ortiz Musculoskeletal: General: Tenderness present. No deformity. Cervical back: Neck supple. No rigidity or tenderness. Left lower leg: Edema present. Skin: Coloration: Skin is not jaundiced or pale. Findings: No bruising, erythema, lesion or rash. Neurological: General: No focal deficit present. Mental Status: He is alert. Cranial Nerves: No cranial nerve deficit. Psychiatric: Mood and Affect: Mood normal. Thought Content: Thought content normal. Past Medical History: Past Medical History: Diagnosis Date Abscess 2020 left arm + MRSA Chronic hepatitis C without hepatic coma (HCC) COPD (chronic obstructive pulmonary disease) (HCC) Depression Drug addiction (HCC) heroin Past Surgical History: Past Surgical History: Procedure Laterality Date ABSCESS DRAINAGE Left 2019 arm APPENDECTOMY FINGER SURGERY Right 5 th finger tendon repair FOOT SURGERY Left 01/26/2022 INCISION AND DRAINAGE, BONE LEFT CALCANEOUS (Left Foot) PICC INSERTION VASCULAR ACCESS TEAM 01/25/2022 TYMPANOSTOMY TUBE PLACEMENT Bilateral Medications: sodium chloride flush 5-40 mL IntraVENous 2 times per day bupivacaine liposome 10 mL Infiltration Once doxycycline hyclate 100 mg Oral 2 times per day metoprolol succinate 25 mg Oral Daily lidocaine 1 % injection 5 mL IntraDERmal Once sodium chloride flush 5-40 mL IntraVENous 2 times per day morphine 4 mg IntraVENous Once caspofungin (CANCIDAS) IVPB 150 mg IntraVENous Q24H amphotericin B liposome (AMBISOME) IVPB 5 mg/kg IntraVENous Q24H insulin lispro 0-6 Units SubCUTAneous TID WC insulin lispro 0-3 Units SubCUTAneous Nightly enoxaparin 40 mg SubCUTAneous Daily Social History: Social History Socioeconomic History Marital status: Single Spouse name: Not on file Number of children: Not on file Years of education: Not on file Highest education level: Not on file Occupational History Not on file Tobacco Use Smoking status: Former Smoker Smokeless tobacco: Never Used Substance and Sexual Activity Alcohol use: No Drug use: Yes Types: Cocaine, Opiates , Marijuana ([place]), Methamphetamines (Crystal Meth) Comment: quit heroin Nov Sexual activity: Not on file Other Topics Concern Not on file Social History Narrative Not on file Social Determinants of Health Financial Resource Strain: Difficulty of Paying Living Expenses: Not on file Food Insecurity: Worried About Running Out of Food in the Last Year: Not on file Ran Out of Food in the Last Year: Not on file Transportation Needs: Lack of Transportation (Medical): Not on file Lack of Transportation (Non-Medical): Not on file Physical Activity: Days of Exercise per Week: Not on file Minutes of Exercise per Session: Not on file Stress: Feeling of Stress : Not on file Social Connections: Frequency of Communication with Friends and Family: Not on file Frequency of Social Gatherings with Friends and Family: Not on file Attends Bahai Services: Not on file Active Member of Clubs or Organizations: Not on file Attends Club or Organization Meetings: Not on file Marital Status: Not on file Intimate Partner Violence: Fear of Current or Ex-Partner: Not on file Emotionally Abused: Not on file Physically Abused: Not on file Sexually Abused: Not on file Housing Stability: Unable to Pay for Housing in the Last Year: Not on file Number of Places Lived in the Last Year: Not on file Unstable Housing in the Last Year: Not on file Family History: Family History Problem Relation Age of Onset Cancer Mother skin No Known Problems Father Diabetes Maternal Grandmother Diabetes Maternal Grandfather Medical Decision Making: I have independently reviewed/ordered the following labs: CBC with Differential: Recent Labs 01/26/2245701/27/22621 WBC 8.2 19.8* HGB 10.7* 10.1* HCT 33.3* 31.8* PLT 183 201 LYMPHOPCT 20* 7* MONOPCT 14* 4 BMP: Recent Labs 01/26/2245701/27/22621 NA 137 136 K 4.2 4.4 CL 104 101 CO2 21 24 BUN 26* 25* CREATININE 0.95 0.93 Hepatic Function Panel: Recent Labs 01/26/2245701/27/22621 PROT 8.0 7.2 LABALBU 3.1* 3.1* BILIDIR <0.08 0.09 IBILI Can not be calculated 0.21 BILITOT 0.21* 0.30 ALKPHOS 99 87 ALT 30 27 AST 19 14 No results for input(s): RPR in the last 72 hours. No results for input(s): HIV in the last 72 hours. No results for input(s): BC in the last 72 hours. Lab Results Component Value Date CREATININE 0.93 01/27/2022 GLUCOSE 187 01/27/2022 Detailed results: Contains abnormal data Culture, Blood 1 Order: [id number] Status: Final result Visible to patient: No (not released) Next appt: None Specimen Information: Blood 0 Result Notes Component 12/13/212155 Specimen Description .BLOOD Special Requests RT AC 10 ML Culture POSITIVE Blood Culture Abnormal Culture DIRECT GRAM STAIN FROM BOTTLE: GRAM POSITIVE COCCI IN CLUSTERS Culture Abnormal Staphylococcus aureus Detected: mecA/C and MREJ Gene Detected- Methicillin Resistant Organism Methodology- Polymerase Chain Reaction (PCR) Culture METHICILLIN RESISTANT STAPHYLOCOCCUS AUREUS Abnormal Culture (NOTE) Direct Gram Stain from bottle and Polymerase Chain Reaction (PCR) results called to and read back by:DIANE Martinez AT 1440 ON 12/14/2021 Resulting Agency [facility] Susceptibility Methicillin resistant staphylococcus aureus (4) Antibiotic Interpretation Microscan Method Status penicillin Resistant >=0.5 BACTERIAL SUSCEPTIBILITY PANEL BERENICE Final cefoxitin screen NOT REPORTED BACTERIAL SUSCEPTIBILITY PANEL BERENICE Final ciprofloxacin NOT REPORTED BACTERIAL SUSCEPTIBILITY PANEL BERENICE Final clindamycin Sensitive <=0.25 BACTERIAL SUSCEPTIBILITY PANEL BERENICE Final erythromycin Resistant >=8 BACTERIAL SUSCEPTIBILITY PANEL BERENICE Final gentamicin Sensitive <=0.5 BACTERIAL SUSCEPTIBILITY PANEL BERENICE Final gentamicin Sensitive Gentamicin is used only in combination with other active agents that test susceptible. BACTERIAL SUSCEPTIBILITY PANEL BERENICE Final Induced Clind Resist Negative NEGATIVE BACTERIAL SUSCEPTIBILITY PANEL BERENICE Final levofloxacin Sensitive 0.25 BACTERIAL SUSCEPTIBILITY PANEL BERENICE Final linezolid NOT REPORTED BACTERIAL SUSCEPTIBILITY PANEL BERENICE Final moxifloxacin NOT REPORTED BACTERIAL SUSCEPTIBILITY PANEL BERENICE Final nitrofurantoin NOT REPORTED BACTERIAL SUSCEPTIBILITY PANEL BERENICE Final oxacillin Resistant >=4 BACTERIAL SUSCEPTIBILITY PANEL BERENICE Final Synercid NOT REPORTED BACTERIAL SUSCEPTIBILITY PANEL BERENICE Final rifampin NOT REPORTED BACTERIAL SUSCEPTIBILITY PANEL BERENICE Final tetracycline Sensitive <=1 BACTERIAL SUSCEPTIBILITY PANEL BERENICE Final tigecycline NOT REPORTED BACTERIAL SUSCEPTIBILITY PANEL BERENICE Final trimethoprim-sulfamethoxazole Sensitive <=10 BACTERIAL SUSCEPTIBILITY PANEL BERENICE Final vancomycin Sensitive <=0.5 BACTERIAL SUSCEPTIBILITY PANEL BERENICE Final Specimen Collected: 12/13/21 21:56 Last Resulted: 12/15/21 22:08 Thank you for allowing us to participate in the care of this patient.Please call with questions. This note is created with the assistance of a speech recognition program. While intending to generate adocument that actually reflects the content of the visit, the document can still have some errors including those of syntax and sound a like substitutions which may escape proof reading. It such instances, actual meaningcan be extrapolated by contextual diversion. Chasity Matos, MAT WEAVER - [employer] SALES ENGINEER ATTESTATION: I have discussed the case, including pertinent history and exam findings with the MAT WEAVER. I have evaluated the History, physical findings and pictures of the patient and the hall elements of the encounter have been performed by me. I have reviewed the laboratory data, other diagnostic studies and discussed them with the MAT WEAVER. I have updated the medical record where necessary. I agree with the assessment, plan and orders as documented by the MAT WEAVER. Tariq Dumont MD. Office: [facility] / office [phone] Images from the original note were not included. 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 [Shoulder was a joint that was back Heroin use, hepatitis C Other: Patient did have a red neck syndrome infection with fever in [place] and again here Label allergic to vanco Allergy to pnc severe Discussion / summary of stay / plan of care Recommendations Left ankle MRI septic joint and OM calcaneus - I/D 01/26 Pend bone bx fr cx GIANFRANCO + TV vegetation 1.1 cm. likely nathaniel related but can also be mrsa Pt could not tolerate ambizome , refused it Long disc w pt - will try w premedication, over 3 hrs If ambizome tolerated, stop caspofungin ophtalmo exam neg 01/26 recent MRSA septicemia treated, but residual septic p emboli. Doxy po x 1 month CTS to eval for TV replacement - might need surg debulking soon to improve the outcome This condition carries increased mortality Infection Control Recommendations [place] Precautions Contact Isolation Antimicrobial Stewardship Recommendations Simplification of therapy IV to oral conversion Coordination ofOutpatient Care: Estimated Length of IV antimicrobials: Patient will need Midline / picc Catheter Insertion: Patient will need SNF: Patient will need outpatient wound care: History of Present Illness: Initial history: Tip Ansari is a 42 y.o.-year-old male [facility] because of rigors and fever as well as the left foot wound that seems to have started suddenly in [facility] Recently seen 12/2021 by [facility] for MRSA bacteremia, right knee septic arthritis, left wrist septic arthritis, MRSA was on culture, he had a left ankle joint pain but cultures were negative, and the right shoulder pain but a dry tap tried twice at the time. He also has multifocal pulmonary opacities with cavitations on CT scan of the chest, suggestive of septic emboli, and a tricuspid valve vegetation. Patient was admitted 12/13 and discharged on 12/20 with plan of dalbavancin weekly X2 and then to follow more dalbavancin according to blood cultures and CT scan of the chest, and an ultimate plan to keep him on doxycycline p.o. as long as it takes for the resolution of her symptoms He was also supposed to follow as outpatient Refer to my note on 12/20/2021. After discharge patient decided to take a dose of drugs IV on 01/10, overdosed, by the time EMS and police arrived, the patient woke up on the stretcher. Due to a prior history, patient was incarcerated. Since he has been without drugs, and hoping to be off them for of Patient does have heroin use and hepatitis C, he is also severely allergic to penicillin It looks like he had also a vancomycin reaction, with infusion site redness as well as redness over the neck and face fever hotness tachycardia, most likely at head neck syndrome, with recovered within 10 to 15 minutes. On exam 01/21 he does have a swelling on the posterior aspect of the left heel, over the insertion of the Achilles tendons, with an open wound, he is unsure if this was rubbing on his shoe or white. Otherwise able to move his left ankle joint well. No cellulitis present, all the other joints that used to hurt him have recovered. He has no shortness of breath or cough and no fever. He is doing very well on room air and walking while Interval changes 01/26/2022 Patient Vitals for the past 8 hrs: BP Temp Temp src Pulse Resp SpO2 01/26/22 2048 115/79 98.1 F (36.7 C) Oral 108 23 98 % 01/26/22 1715 117/84 97 F (36.1 C) 95 14 95 % 01/26/22 1700 114/88 98 13 99 % 01/26/22 1645 (!) 110/90 96.5 F (35.8 C) Temporal 102 16 99 % 01/22 C alb in one BC only Unclear significance mostly wo fever or sepsis Yet w hx of IVDU it soul be taken seriously Asking for GIANFRANCO Start fluconazole 01/22 01/23 MRI left ankle + PM calcaneus and possible ankle abscess Fever resolved and only one BC has C alb Feels better Left ankle still edematous and await podiatry for surg plans Would rec exploration and at least bone biopsy for better AB coverage 01/25 Alert appropriate, not having fevers, going for debridement of the foot on 01/26 Repeat blood cultures were still negative Patient started on amphotericin B and caspofungin, continues on DAPT CPK 9 Long discussion counseling against drugs 01/26 Refused ambisome after first dose due to severe pain in spine while infusing -worse than a sciatica Resolved after infusion stopped Willing to try again w slow infusion and premedication BC C alb x 1 and all there neg Post L ankle I/D 01/26 Summary of relevant labs: Labs: WBC 10 CRP51.6 High CREATININE0.73 Lactic Acid, Whole Blood3.3 High Sed Rate58 High [id number] High Micro: BC One f two, 01/21 C alb BC x 4 on 01/20 neg Imaging: MRI left ankle - 1. Osteomyelitis of the calcaneus with moderate amount of fluid within the retrocalcaneal bursa demonstrating pronounced peripheral enhancement. The fluid extends through the partially torn distal Achilles tendon to the adjacent soft tissues posteriorly. Findings suggesting septic bursitis with involvement of the distal Achilles tendon. There is underlying moderate to severe distal Achilles tendinosis. 2. Evidence for remote sprain of the intact anterior talofibular ligament. Xray left foot 1. Soft tissue swelling along the heel of the left foot. No evidence of osteomyelitis. I have personally reviewed the past medical history, past surgical history, medications, social history, and family history, and I haveupdated the database accordingly. Allergies: Pcn [penicillins] and Vancomycin Review of Systems: Review of Systems Constitutional: Negative for activity change, appetite change, diaphoresis and fatigue. HENT: Negative for congestion. Eyes: Negative for photophobia, pain, redness and itching. Respiratory: Negative for apnea and choking. Cardiovascular: Negative for chest pain. Gastrointestinal: Negative for abdominal distention. Endocrine: Negative for polydipsia and polyuria. Genitourinary: Negative for dysuria and flank pain. Musculoskeletal: Positive for arthralgias. Skin: Negative for color change. Allergic/Immunologic: Negative for food allergies. Neurological: Negative for dizziness, light-headedness and numbness. Hematological: Negative for adenopathy. Psychiatric/Behavioral: Negative for agitation. Physical Examination : Physical Exam Constitutional: General: He is not in acute distress. Appearance: Normal appearance. He is not ill-appearing, toxic-appearing or diaphoretic. HENT: Head: Normocephalic. Nose: Nose normal. Mouth/Throat: Mouth: Mucous membranes are moist. Eyes: General: No scleral icterus. Conjunctiva/sclera: Conjunctivae normal. Cardiovascular: Rate and Rhythm: Normal rate and regular rhythm. Heart sounds: Normal heart sounds. No murmur heard. No friction rub. Pulmonary: Effort: No respiratory distress. Breath sounds: No stridor. No wheezing. Abdominal: General: There is no distension. Palpations: There is no mass. Tenderness: There is no abdominal tenderness. Genitourinary: Comments: No ortiz Musculoskeletal: General: Tenderness present. No deformity. Cervical back: Neck supple. No rigidity or tenderness. Left lower leg: Edema present. Skin: Coloration: Skin is not jaundiced or pale. Findings: No bruising, erythema, lesion or rash. Neurological: General: No focal deficit present. Mental Status: He is alert. Cranial Nerves: No cranial nerve deficit. Psychiatric: Mood and Affect: Mood normal. Thought Content: Thought content normal. Past Medical History: Past Medical History: Diagnosis Date Abscess 2020 left arm + MRSA Chronic hepatitis C without hepatic coma (HCC) COPD (chronic obstructive pulmonary disease) (HCC) Depression Drug addiction (HCC) heroin Past Surgical History: Past Surgical History: Procedure Laterality Date ABSCESS DRAINAGE Left 2019 arm APPENDECTOMY FINGER SURGERY Right 5 th finger tendon repair FOOT SURGERY Left 01/26/2022 INCISION AND DRAINAGE, BONE LEFT CALCANEOUS (Left Foot) PICC INSERTION VASCULAR ACCESS TEAM 01/25/2022 TYMPANOSTOMY TUBE PLACEMENT Bilateral Medications: sodium chloride flush 5-40 mL IntraVENous 2 times per day bupivacaine liposome 10 mL Infiltration Once metoprolol succinate 25 mg Oral Daily lidocaine 1 % injection 5 mL IntraDERmal Once sodium chloride flush 5-40 mL IntraVENous 2 times per day morphine 4 mg IntraVENous Once daptomycin (CUBICIN) IVPB 6 mg/kg (Adjusted) IntraVENous Q24H caspofungin (CANCIDAS) IVPB 150 mg IntraVENous Q24H amphotericin B liposome (AMBISOME) IVPB 5 mg/kg IntraVENous Q24H insulin lispro 0-6 Units SubCUTAneous TID WC insulin lispro 0-3 Units SubCUTAneous Nightly enoxaparin 40 mg SubCUTAneous Daily Social History: Social History Socioeconomic History Marital status: Single Spouse name: Not on file Number of children: Not on file Years of education: Not on file Highest education level: Not on file Occupational History Not on file Tobacco Use Smoking status: Former Smoker Smokeless tobacco: Never Used Substance and Sexual Activity Alcohol use: No Drug use: Yes Types: Cocaine, Opiates , Marijuana ([place]), Methamphetamines (Crystal Meth) Comment: quit heroin Nov Sexual activity: Not on file Other Topics Concern Not on file Social History Narrative Not on file Social Determinants of Health Financial Resource Strain: Difficulty of Paying Living Expenses: Not on file Food Insecurity: Worried About Running Out of Food in the Last Year: Not on file Ran Out of Food in the Last Year: Not on file Transportation Needs: Lack of Transportation (Medical): Not on file Lack of Transportation (Non-Medical): Not on file Physical Activity: Days of Exercise per Week: Not on file Minutes of Exercise per Session: Not on file Stress: Feeling of Stress : Not on file Social Connections: Frequency of Communication with Friends and Family: Not on file Frequency of Social Gatherings with Friends and Family: Not on file Attends Bahai Services: Not on file Active Member of Clubs or Organizations: Not on file Attends Club or Organization Meetings: Not on file Marital Status: Not on file Intimate Partner Violence: Fear of Current or Ex-Partner: Not on file Emotionally Abused: Not on file Physically Abused: Not on file Sexually Abused: Not on file Housing Stability: Unable to Pay for Housing in the Last Year: Not on file Number of Places Lived in the Last Year: Not on file Unstable Housing in the Last Year: Not on file Family History: Family History Problem Relation Age of Onset Cancer Mother skin No Known Problems Father Diabetes Maternal Grandmother Diabetes Maternal Grandfather Medical Decision Making: I have independently reviewed/ordered the following labs: CBC with Differential: Recent Labs 01/25/22 0546 01/26/22 0458 WBC 9.0 8.2 HGB 10.6* 10.7* HCT 34.5* 33.3* PLT 189 183 LYMPHOPCT 17* 20* MONOPCT 11 14* BMP: Recent Labs 01/25/22 0546 01/26/22 0458 NA 139 137 K 4.4 4.2 CL 105 104 CO2 20 21 BUN 19 26* CREATININE 0.82 0.95 Hepatic Function Panel: Recent Labs 01/25/22 0546 01/26/22 0458 PROT 7.5 8.0 LABALBU 3.0* 3.1* BILIDIR <0.08 <0.08 IBILI Can not be calculated Can not be calculated BILITOT 0.20* 0.21* ALKPHOS 99 99 ALT 31 30 AST 21 19 No results for input(s): RPR in the last 72 hours. No results for input(s): HIV in the last 72 hours. No results for input(s): BC in the last 72 hours. Lab Results Component Value Date CREATININE 0.95 01/26/2022 GLUCOSE 123 01/26/2022 Detailed results: Thank you for allowing us to participate in the care of this patient.Please call with questions. This note is created with the assistance of a speech recognition program. While intending to generate adocument that actually reflects the content of the visit, the document can still have some errors including those of syntax and sound a like substitutions which may escape proof reading. It such instances, actual meaningcan be extrapolated by contextual diversion. Marisol Andrea MD Office: Perfect serve / office [phone] Images from the original note were not included. [facility] Office: [phone] Mikie Rodriguez DO, Theo Lerma DO, Stuart Natarajan DO, Harpal Tran DO, Prashanth Sadler MD, Deana Raza MD, Florencia Canela MD, Tess Ford MD, Yuliana Saenz MD, Leodan Mak MD, Marimar Ren MD, Fabricio Syed DO, Kyle Broussard DO, Juan Driver MD, Sophia Agustin DO, Lyle Woods MD, Jodi Bain MD, Palomo Drummond MD, Johann Rodriguez DO, Radha Avila MD, Alberto Perez MD, Teresa Quintero CNP, Tika Hernandez CNP, Mary Meléndez, MARINE EQUIPMENT SALES ENGINEER, Ctahleen Moran, HAIR BLENDER, Abdirahman Bella, PALBO, Leslie Rao CNP, Madalyn Julien, PABLO, Ro Bernard, PABLO, Carter Charles CNP, Mckayla Abraham PA-C, Eli Fu DNP, Razia Figueroa DNP, Keri Walker, PABLO, Sherrie Rea, PABLO, Moon Waldrop CNP, Ethel Soto MARINE EQUIPMENT SALES ENGINEER, Jazzy Javier CNP, Shelli Menon CNP [facility] IN-PATIENT SERVICE [facility] Progress Note 01/26/2022 2:36 PM Name: Tip Ansari Acct: [id number] Room: [facility] IP Day: 6 Admit Date: 01/20/2022 10:23 PM PCP: No primary care provider on file. Code Status: Full Code Subjective: C/C: rigors Interval History Status: not changed. Pt seen and examined this morning. Overnight, patient with significant reaction after initiation of amphotericin. Patient reports significant low back pain along with pain at the IV insertion site. IV was removed. Today, he is feeling better. He is n.p.o., as he is going to the OR this afternoon. Heart rate is improving slowly. Brief History: Mr. Tip Ansari is a 42 year old gentleman who initially presented to [facility] ED from the local fdc after he developed acute onset chills and shaking. He noted a wound to his left foot as well. Onset was abrupt, as he felt well earlier in the day. Patient was previously at [facility] in December for MRSA bacteremia with tricuspid valve vegetation. He was discharged on dalbavancin weekly x2 weeks in the infusion center with planned follow up CT and echocardiogram. In addition he was found to have septic arthritis of the right knee and left wrist (also positive for MRSA). In addition patient was found to be stool occult blood positive and lateral multifocal scattered nodular opacities in lung with cavitation which was presumed to be septic emboli. The occult blood resolved itself after being placed on vancomycin and patient was discharged back to fdc CT imaging in the ER revealed no evidence for PE, but with scattered airspace opacities are present throughout the lungs bilaterally to a mild degree, overall improved from prior, possibly representing residual pneumonia. Podiatry and ID have evaluated the patient. He is growing nathaniel in his blood and is on IV diflucan. -GIANFRANCO performed on 01/24 -MRI reveals osteomyelitis of the calcaneus with moderate amount of fluid within the retrocalcaneal bursa demonstrated pronounced peripheral enhancement suggesting septic bursitis with involvement of the distal Achilles tendon. Ultimately started on devolve Tylenol done he is getting the discharge discharge to facility today Review of Systems: Constitutional: negative for chills, fevers, sweats Respiratory: negative for cough, dyspnea on exertion, shortness of breath, wheezing Cardiovascular: negative for chest pain, chest pressure/discomfort, lower extremity edema, palpitations Gastrointestinal: negative for abdominal pain, constipation, diarrhea, nausea, vomiting Neurological: negative for dizziness, headache Medications: Allergies: Allergies Allergen Reactions Pcn [Penicillins] Anaphylaxis Vancomycin Other (See Comments) Fever and hives chest - despite very slow infusion Current Meds: Scheduled Meds: [JAN Hold] metoprolol succinate 25 mg Oral Daily [JAN Hold] lidocaine 1 % injection 5 mL IntraDERmal Once [JAN Hold] sodium chloride flush 5-40 mL IntraVENous 2 times per day [JAN Hold] morphine 4 mg IntraVENous Once [JAN Hold] daptomycin (CUBICIN) IVPB 6 mg/kg (Adjusted) IntraVENous Q24H [JAN Hold] caspofungin (CANCIDAS) IVPB 150 mg IntraVENous Q24H [JAN Hold] amphotericin B liposome (AMBISOME) IVPB 5 mg/kg IntraVENous Q24H [JAN Hold] insulin lispro 0-6 Units SubCUTAneous TID WC [JAN Hold] insulin lispro 0-3 Units SubCUTAneous Nightly [JAN Hold] enoxaparin 40 mg SubCUTAneous Daily Continuous Infusions: lactated ringers [JAN Hold] sodium chloride Stopped (01/25/22 184) [JAN Hold] dextrose PRN Meds: lidocaine PF, fentanNYL OR fentanNYL, midazolam, [JAN Hold] sodium chloride flush, [JAN Hold] sodium chloride, [JAN Hold] diphenhydrAMINE, [JAN Hold] traMADol OR [JAN Hold] traMADol, [JAN Hold] traZODone, [JAN Hold] glucose, [JAN Hold] dextrose, [JAN Hold] glucagon (rDNA), [JAN Hold] dextrose, [JAN Hold] melatonin, [JAN Hold] hydrOXYzine, [JAN Hold] potassium chloride OR [JAN Hold] potassium alternative oral replacement OR [JAN Hold] potassium chloride, [JAN Hold] magnesium sulfate, [JAN Hold] ondansetron OR [JAN Hold] ondansetron, [JAN Hold] polyethylene glycol, [JAN Hold] acetaminophen OR [JAN Hold] acetaminophen Data: Past Medical History: has a past medical history of Abscess, Chronic hepatitis C without hepatic coma (HCC), COPD (chronic obstructive pulmonary disease) (HCC), Depression, and Drug addiction (HCC). Social History: reports that he has quit smoking. He has never used smokeless tobacco. He reports current drug use. Drugs: Cocaine, Opiates , Marijuana ([place]), and Methamphetamines (Crystal Meth). He reports that he does not drink alcohol. Family History: Family History Problem Relation Age of Onset Cancer Mother skin No Known Problems Father Diabetes Maternal Grandmother Diabetes Maternal Grandfather Vitals: BP 114/84 Pulse 97 Temp 97 F (36.1 C) (Temporal) Resp 16 Ht 6' (1.829 m) Wt 160 lb 3.2 oz (72.7 kg) SpO2 100% BMI 21.73 kg/m Temp (24hrs), Av.1 F (36.7 C), Min:97 F (36.1 C), Max:98.6 F (37 C) Recent Labs 01/23/22211601/24/22 08 POCGLU 122* 97 I/O (24Hr): Intake/Output Summary (Last 24 hours) at 01/26/2022 1436 Last data filed at 01/25/2022 1843 Gross per 24 hour Intake 72.36 ml Output 400 ml Net -327.64 ml Labs: Hematology: Recent Labs 01/25/2246 01/26/22457 WBC 9.0 8.2 RBC 3.85* 3.85* HGB 10.6* 10.7* HCT 34.5* 33.3* MCV 89.6 86.5 MCH 27.5 27.8 MCHC 30.7 32.1 RDW 16.6* 16.6* PLT 189 183 MPV 9.2 8.7 Chemistry: Recent Labs 01/25/2246 01/26/22457 NA 139 137 K 4.4 4.2 CL 105 104 CO2 20 21 GLUCOSE 109* 123* BUN 19 26* CREATININE 0.82 0.95 ANIONGAP 14 12 LABGLOM >60 >60 GFRAA >60 >60 CALCIUM 9.0 9.5 CKTOTAL 9* 10* Recent Labs 01/23/22211601/24/22 0801/25/22 0546 01/26/22457 PROT -- -- 7.5 8.0 LABALBU -- -- 3.0* 3.1* AST -- -- 21 19 ALT -- -- 31 30 ALKPHOS -- -- 99 99 BILITOT -- -- 0.20* 0.21* BILIDIR -- -- <0.08 <0.08 POCGLU 122* 97 -- -- ABG: Lab Results Component Value Date PHART 7.380 12/16/2020 HBR4OSS 44.5 12/16/2020 PO2ART 94.4 12/16/2020 AFA4BLI 25.7 12/16/2020 NBEA NOT REPORTED 12/16/2020 PBEA 0.3 12/16/2020 [id number] 97.1 12/16/2020 FIO2 28 12/16/2020 Lab Results Component Value Date/Time SPECIAL RIGHT FOREARM 20ML 01/23/2022 12:11 AM SPECIAL RIGHT HAND 20ML 01/23/2022 12:11 AM Lab Results Component Value Date/Time CULTURE NO GROWTH 3 DAYS 01/23/2022 12:11 AM CULTURE NO GROWTH 3 DAYS 01/23/2022 12:11 AM Radiology: XR CALCANEUS LEFT (MIN 2 VIEWS) Result Date: 01/21/2022 1. Soft tissue swelling along the heel of the left foot. No evidence of osteomyelitis. XR CHEST PORTABLE Result Date: 01/20/2022 Diffuse interstitial opacities may represent mild edema or atypical infection. CT CHEST PULMONARY EMBOLISM W CONTRAST Result Date: 01/20/2022 No evidence of pulmonary embolism or acute thoracic aortic abnormality. Improving aeration. Scattered airspace opacities are present throughout the lungs bilaterally to a mild degree, overall improved from prior, possibly representing residual pneumonia. Physical Examination: General appearance: alert, cooperative and no distress, pleasant, sitting up in bed Mental Status: oriented to person, place and time and normal affect Lungs: clear to auscultation bilaterally, normal effort Heart: tachycardia (100 bpm) with regular rhythm, no murmur Abdomen: soft, nontender, nondistended, normal bowel sounds, no masses, hepatomegaly, splenomegaly Extremities: no edema, redness, tenderness in the calves, left heel with wound, pressure bandage present, left upper extremity PICC line present Skin: no gross lesions, rashes, induration Assessment: Hospital Problems Last Modified POA * (Principal) Sepsis due to Nathaniel species without acute organ dysfunction (HCC) 01/23/2022 Yes Endocarditis of tricuspid valve 01/23/2022 Yes Sinus tachycardia 01/23/2022 Yes Septic bursitis of Achilles 01/24/2022 Clinically Undetermined Heroin abuse (HCC) 01/23/2022 Yes Moderate tricuspid regurgitation 01/23/2022 Yes Hepatitis C virus infection without hepatic coma 01/23/2022 Yes Hyperglycemia 01/23/2022 Yes Plan: 1. Sepsis likely due to Nathaniel fungemia - continue antifungals and infectious disease's discretion, ophthalmology evaluation today. Appreciate their input. 2. Amphotericin reaction should improve after several doses. Appreciate further guidance from infectious disease 3. Septic pulmonary emboli from previous endocarditis continue daptomycin 4. Tricuspid valve endocarditis CT surgery evaluation - complete course of IV anti-fungals. Then repeat echo. May need debulking, per ID 5. Left ankle soft tissue infection - significant infection of the retrocalcaneal bursal sac, partially torn Achilles tendon with Achilles tendinosis, and calcaneal osteomyelitis. Podiatry taking patient for I&D today. 6. Heroin abuse - SW and case management following. Working on LTAC at discharge. 7. History of Hepatitis C 8. Essential hypertension - continue Maxide 9. Daily labs 10. Disposition: OR today. Working on dispo and antifungal regimen. PICC line placed FABRICIO SYED DO 01/26/2022 2:36 PM Images from the original note were not included. Progress Note Podiatric Medicine and Surgery Subjective CC: Ankle pain, left Patient seen and examined at bedside. OR for I&D in the PM Patient NPO since midnight Surgery delayed yesterday due to scheduling HPI : Tip Ansari is a 42 y.o. male seen at [facility] for possible septic arthritis of the left ankle. Patient has extensive history of IV drug abuse, he was most recently admitted in December 2021 for concerns of multiple septic joints which resulted in negative cultures. He is known pulmonary septic emboli, tricuspid endocarditis secondary to MRSA infection which are improving since previous admission. He presents today with persistent concerns for infection to the left ankle. He was evaluated by the infectious disease team earlier today who placed MRI ordered for left ankle. Patient states there has been a superficial draining wound to the posterior aspect of the left ankle for approximately 2 weeks. He states at one point drainage and pain were much worse than currently presenting. He has mild discomfort with moving the ankle. States that he has not used any illicit drugs since 01/10/22. Denies injecting into the lower extremity. Denies trauma to the area. ROS: Denies N/V/F/C/SOB/CP. Otherwise negative except at stated in the HPI. Medications: Scheduled Meds: metoprolol succinate 25 mg Oral Daily lidocaine 1 % injection 5 mL IntraDERmal Once sodium chloride flush 5-40 mL IntraVENous 2 times per day morphine 4 mg IntraVENous Once daptomycin (CUBICIN) IVPB 6 mg/kg (Adjusted) IntraVENous Q24H caspofungin (CANCIDAS) IVPB 150 mg IntraVENous Q24H amphotericin B liposome (AMBISOME) IVPB 5 mg/kg IntraVENous Q24H insulin lispro 0-6 Units SubCUTAneous TID WC insulin lispro 0-3 Units SubCUTAneous Nightly enoxaparin 40 mg SubCUTAneous Daily Continuous Infusions: sodium chloride Stopped (01/25/22 1841) dextrose PRN Meds:sodium chloride flush, sodium chloride, diphenhydrAMINE, traMADol OR traMADol, traZODone, glucose, dextrose, glucagon (rDNA), dextrose, melatonin, hydrOXYzine, potassium chloride OR potassium alternative oral replacement OR potassium chloride, magnesium sulfate, ondansetron OR ondansetron, polyethylene glycol, acetaminophen OR acetaminophen Objective Vitals: Patient Vitals for the past 8 hrs: BP Temp Temp src Pulse Resp SpO2 01/26/22 1154 (!) 118/96 97.9 F (36.6 C) Oral 104 17 01/26/22 1059 25 95 % 01/26/22 0915 115/81 98.6 F (37 C) Oral 101 26 Average, Min, and Max for last 24 hours Vitals: TEMPERATURE: Temp Av.3 F (36.8 C) Min: 97.9 F (36.6 C) Max: 98.6 F (37 C) RESPIRATIONS RANGE: Resp Av.8 Min: 17 Max: 26 PULSE RANGE: Pulse Av.2 Min: 95 Max: 114 BLOOD PRESSURE RANGE: Systolic (24hrs), Av , Min:103 , Max:121 ; Diastolic (24hrs), Av, Min:78, Max:96 PULSE OXIMETRY RANGE: SpO2 Av.3 % Min: 95 % Max: 99 % I/O last 3 completed shifts: In: 2782.1 [P.O.:720; I.V.:597.6; IV Piggyback:1464.5] Out: 1000 [Urine:1000] CBC: Recent Labs 01/25/22 0546 01/26/22 0458 WBC 9.0 8.2 HGB 10.6* 10.7* HCT 34.5* 33.3* PLT 189 183 BMP: Recent Labs 01/25/2246 01/26/228 NA 139 137 K 4.4 4.2 CL 105 104 CO2 20 21 BUN 19 26* CREATININE 0.82 0.95 GLUCOSE 109* 123* CALCIUM 9.0 9.5 Coags: Recent Labs 01/25/2246 01/26/22457 PROT 7.5 8.0 Lab Results Component Value Date SEDRATE 58 (H) 01/21/2022 No results for input(s): CRP in the last 72 hours. Physical Exam: dressing remains intact due to surgery. Exam from 01/24. Vascular: DP and PT pulses are palpable. CFT brisk to all digits. Hair growth is present to the level of the digits. Mild nonpitting edema, posterior left ankle. Neuro: Saph/sural/SP/DP/plantar sensation diminished to light touch. Musculoskeletal: Muscle strength is adequate ROM, adequate strength to all lower extremity muscle groups. Gross deformity is absent. Compartments are soft and compressible. No pain with compression of posterior calf. Minimal pain elicited with passive and active ankle joint range of motion. Moderate tenderness with palpation to posterior aspect of ankle, left. Dermatologic: Partial thickness ulcer to level of dermis located at the posterior aspect of the left ankle measures approximately 0.3 cm x 0.2 cm x 0.2 cm. Base is fibrogranular. Minimal drainage noted with no associated mal odor. Erythema absent with out associated increase in warmth. Does not probe to bone, sinus track, or undermine. Crepitus and induration absent. There is suspected fluctuance in the area without clear apex of abscess. Imaging: MRI ANKLE LEFT W WO CONTRAST Final Result 1. Osteomyelitis of the calcaneus with moderate amount of fluid within the retrocalcaneal bursa demonstrating pronounced peripheral enhancement. The fluid extends through the partially torn distal Achilles tendon to the adjacent soft tissues posteriorly. Findings suggesting septic bursitis with involvement of the distal Achilles tendon. There is underlying moderate to severe distal Achilles tendinosis. 2. Evidence for remote sprain of the intact anterior talofibular ligament. XR CALCANEUS LEFT (MIN 2 VIEWS) Final Result 1. Soft tissue swelling along the heel of the left foot. No evidence of osteomyelitis. Cultures: None we will obtain in OR Assessment Tpi Ansari is a 42 y.o. male with 1. Subacute osteomyelitis of calcaneus, left lower extremity 2. Possible subacute abscess of ankle, left lower extremity 3. History of IV drug abuse 4. Hepatitis C 5. Peripheral neuropathy Principal Problem: Sepsis due to Nathaniel species without acute organ dysfunction (HCC) Active Problems: Sinus tachycardia Septic bursitis of Achilles Heroin abuse (HCC) Hepatitis C virus infection without hepatic coma Endocarditis of tricuspid valve Moderate tricuspid regurgitation Hyperglycemia Resolved Problems: * No resolved hospital problems. * Plan Patient examined and evaluated at bedside All treatment options discussed in detail with the patient Medicine as primary team for medical management ID following OR today NPO midnight/hold AC Consent in chart Covid negative Dressing remains intact to Left lower extremity: Mepilex Weightbearing as tolerated to Left lower extremity Discussed with Dr. Aissatou White DPM Podiatric Medicine & Surgery 01/26/2022 at 1:04 PM Images from the original note were not included. Physical Therapy Physical Therapy Cancel Note DATE: 01/26/2022 NAME: Tip Ansari : 1980 Patient not seen this date for Physical Therapy due to: Patient Declined: Pt refused PT this AM. I just woke up. I am pretty mobile. I am having surgery at 3:00 PM RN notified. Will attempt later prior to surgery if able. 21:31 Patient administered amphotericin 21:45 Pt complains of severe pain rating 20/10. Pain prevented him from eating. Patient described the pain as shooting, throbbing, from his lower back to groin, down to his toe cause his feet to contort and crack. Patient then complains of iv site pain in left forearm. And insist on stopping med and removing IV removing IV. Nurse stopped iv 21:58 Nurse notified clerk travel reservations BLOOD TESTER FOWL Yoly Quintero. Ordered benadryl and morphine. Notified ID. Dr. Andrea. 21:59 administer benadryl and offered tylenol. Patient refused tylenol due to the severity of his pain. Patient stated, That shit aint gone work! Patient educated on the importance of taking amphotericin due to the severity of his infection. 22:30 morphine d/c due to PMH, tramadol ordered 22:45 Nurse again urged and educated the patient on the importants of drug. Offered to premedicate with tramadol and benadryl. Patient states, NO! I would have to be put out for me to take that shit! It's not happening.. will continue to monitor... Images from the original note were not included. [facility] - Infectious diseases evaluation admission date 01/20/2022 reason for consultation: Sepsis Vanco allergy Impression : Current: Vancomycin reaction- Tachycardia fever red neck syndrome in [place] Pulmonary septic emboli, MRSA -cavitations improved, nodules not resolved Tricuspid valve endocarditis, MRSA Treated w 2 doses dalbavancin Left ankle soft tissue infection, rule out underlying tendinitis Hx of Anaphylaxis to penicillin questionable if he ever tried cephalosporines Hives and red neck S to vanco x 2 01/21 candidemia - Calbicans Elevated CRP 51 /procalcitonin 11 Admission sepsis with fever and chills Left calcaneal OM and possible left ankle abscess Recent Pulmonary septic emboli with cavitary pneumonia-MRSA Tricuspid endocarditis with vegetation and MRSA septicemia MRSA infected left wrist, right knee, Suspected arthritis but culture negative, left ankle and right shoulder. [Shoulder was a joint that was back Heroin use, hepatitis C Other: Patient did have a red neck syndrome infection with fever in [place] and again here Label allergic to vanco Allergy to pnc severe Discussion / summary of stay / plan of care Recommendations Left ankle MRI septic joint and OM calcaneus - await OR plans and at least bone bx fr cx GIANFRANCO + TV vegetation, pend final, likely nathaniel related but can also be mrsa BC nathaniel albicans x 1, but recent MRSA septicemia and septic p emboli. ambizome w premedication If ambizome tolerated, stop caspofungin daptomycin and Follow [facility] pulm resolving septic emboli from last admission CTS to eval for TV replacement - might need surg debulking soon to improve the outcome This condition carries increased mortality Infection Control Recommendations [place] Precautions Contact Isolation Antimicrobial Stewardship Recommendations Simplification of therapy IV to oral conversion Coordination ofOutpatient Care: Estimated Length of IV antimicrobials: Patient will need Midline / picc Catheter Insertion: Patient will need SNF: Patient will need outpatient wound care: History of Present Illness: Initial history: Tip Ansari is a 42 y.o.-year-old male sent to patient from [facility]dc because of rigors and fever as well as the left foot wound that seems to have started suddenly in fdc Recently seen 12/2021 by me ALVES for MRSA bacteremia, right knee septic arthritis, left wrist septic arthritis, MRSA was on culture, he had a left ankle joint pain but cultures were negative, and the right shoulder pain but a dry tap tried twice at the time. He also has multifocal pulmonary opacities with cavitations on CT scan of the chest, suggestive of septic emboli, and a tricuspid valve vegetation. Patient was admitted 12/13 and discharged on 12/20 with plan of dalbavancin weekly X2 and then to follow more dalbavancin according to blood cultures and CT scan of the chest, and an ultimate plan to keep him on doxycycline p.o. as long as it takes for the resolution of her symptoms He was also supposed to follow as outpatient Refer to my note on 12/20/2021. After discharge patient decided to take a dose of drugs IV on 01/10, overdosed, by the time EMS and police arrived, the patient woke up on the stretcher. Due to a prior history, patient was incarcerated. Since he has been without drugs, and hoping to be off them for of Patient does have heroin use and hepatitis C, he is also severely allergic to penicillin It looks like he had also a vancomycin reaction, with infusion site redness as well as redness over the neck and face fever hotness tachycardia, most likely at head neck syndrome, with recovered within 10 to 15 minutes. On exam 01/21 he does have a swelling on the posterior aspect of the left heel, over the insertion of the Achilles tendons, with an open wound, he is unsure if this was rubbing on his shoe or white. Otherwise able to move his left ankle joint well. No cellulitis present, all the other joints that used to hurt him have recovered. He has no shortness of breath or cough and no fever. He is doing very well on room air and walking while Interval changes 01/25/2022 Patient Vitals for the past 8 hrs: BP Temp Temp src Pulse Resp SpO2 01/25/22 1930 115/78 98.5 F (36.9 C) Oral 114 25 99 % 01/25/22 1605 121/80 98.2 F (36.8 C) Oral 112 25 01/22 C alb in one BC only Unclear significance mostly wo fever or sepsis Yet w hx of IVDU it soul be taken seriously Asking for GIANFRANCO Start fluconazole 01/22 01/23 MRI left ankle + PM calcaneus and possible ankle abscess Fever resolved and only one BC has C alb Feels better Left ankle still edematous and await podiatry for surg plans Would rec exploration and at least bone biopsy for better AB coverage 01/25 Alert appropriate, not having fevers, going for debridement of the foot on 01/26 Repeat blood cultures were still negative Patient started on amphotericin B and caspofungin, continues on DAPT CPK 9 Long discussion counseling against drugs Summary of relevant labs: Labs: WBC 10 CRP51.6 High CREATININE0.73 Lactic Acid, Whole Blood3.3 High Sed Rate58 High Bgkgtkixnolrj52.47 High Micro: BC One f two, 01/21 C alb BC x 4 on 01/20 neg Imaging: MRI left ankle - 1. Osteomyelitis of the calcaneus with moderate amount of fluid within the retrocalcaneal bursa demonstrating pronounced peripheral enhancement. The fluid extends through the partially torn distal Achilles tendon to the adjacent soft tissues posteriorly. Findings suggesting septic bursitis with involvement of the distal Achilles tendon. There is underlying moderate to severe distal Achilles tendinosis. 2. Evidence for remote sprain of the intact anterior talofibular ligament. Xray left foot 1. Soft tissue swelling along the heel of the left foot. No evidence of osteomyelitis. I have personally reviewed the past medical history, past surgical history, medications, social history, and family history, and I haveupdated the database accordingly. Allergies: Pcn [penicillins] and Vancomycin Review of Systems: Review of Systems Constitutional: Negative for activity change, appetite change, diaphoresis and fatigue. HENT: Negative for congestion. Eyes: Negative for photophobia, pain, redness and itching. Respiratory: Negative for apnea. Cardiovascular: Negative for chest pain. Gastrointestinal: Negative for abdominal distention. Endocrine: Negative for polydipsia and polyuria. Genitourinary: Negative for dysuria. Musculoskeletal: Positive for arthralgias. Skin: Negative for color change. Allergic/Immunologic: Negative for food allergies. Neurological: Negative for dizziness, light-headedness and numbness. Hematological: Negative for adenopathy. Psychiatric/Behavioral: Negative for agitation. Physical Examination : Physical Exam Constitutional: General: He is not in acute distress. Appearance: Normal appearance. He is not ill-appearing. HENT: Head: Normocephalic. Nose: Nose normal. Mouth/Throat: Mouth: Mucous membranes are moist. Eyes: General: No scleral icterus. Conjunctiva/sclera: Conjunctivae normal. Cardiovascular: Rate and Rhythm: Normal rate and regular rhythm. Heart sounds: Normal heart sounds. No murmur heard. No friction rub. Pulmonary: Effort: No respiratory distress. Breath sounds: No stridor. No wheezing. Abdominal: General: There is no distension. Palpations: There is no mass. Tenderness: There is no abdominal tenderness. Genitourinary: Comments: No ortiz Musculoskeletal: General: Tenderness present. No deformity. Cervical back: Neck supple. No rigidity or tenderness. Left lower leg: Edema present. Skin: Coloration: Skin is not jaundiced or pale. Findings: No bruising, erythema, lesion or rash. Neurological: General: No focal deficit present. Mental Status: He is alert. Cranial Nerves: No cranial nerve deficit. Psychiatric: Mood and Affect: Mood normal. Thought Content: Thought content normal. Past Medical History: Past Medical History: Diagnosis Date Abscess 2020 left arm + MRSA Chronic hepatitis C without hepatic coma (HCC) COPD (chronic obstructive pulmonary disease) (HCC) Depression Drug addiction (HCC) heroin Past Surgical History: Past Surgical History: Procedure Laterality Date ABSCESS DRAINAGE Left 2019 arm APPENDECTOMY FINGER SURGERY Right 5 th finger tendon repair PICC INSERTION VASCULAR ACCESS TEAM 01/25/2022 TYMPANOSTOMY TUBE PLACEMENT Bilateral Medications: metoprolol succinate 25 mg Oral Daily lidocaine 1 % injection 5 mL IntraDERmal Once sodium chloride flush 5-40 mL IntraVENous 2 times per day morphine 4 mg IntraVENous Once daptomycin (CUBICIN) IVPB 6 mg/kg (Adjusted) IntraVENous Q24H caspofungin (CANCIDAS) IVPB 150 mg IntraVENous Q24H amphotericin B liposome (AMBISOME) IVPB 5 mg/kg IntraVENous Q24H fluconazole 400 mg IntraVENous Q24H insulin lispro 0-6 Units SubCUTAneous TID WC insulin lispro 0-3 Units SubCUTAneous Nightly enoxaparin 40 mg SubCUTAneous Daily Social History: Social History Socioeconomic History Marital status: Single Spouse name: Not on file Number of children: Not on file Years of education: Not on file Highest education level: Not on file Occupational History Not on file Tobacco Use Smoking status: Former Smoker Smokeless tobacco: Never Used Substance and Sexual Activity Alcohol use: No Drug use: Yes Types: Cocaine, Opiates , Marijuana ([place]), Methamphetamines (Crystal Meth) Comment: quit heroin Nov Sexual activity: Not on file Other Topics Concern Not on file Social History Narrative Not on file Social Determinants of Health Financial Resource Strain: Difficulty of Paying Living Expenses: Not on file Food Insecurity: Worried About Running Out of Food in the Last Year: Not on file Ran Out of Food in the Last Year: Not on file Transportation Needs: Lack of Transportation (Medical): Not on file Lack of Transportation (Non-Medical): Not on file Physical Activity: Days of Exercise per Week: Not on file Minutes of Exercise per Session: Not on file Stress: Feeling of Stress : Not on file Social Connections: Frequency of Communication with Friends and Family: Not on file Frequency of Social Gatherings with Friends and Family: Not on file Attends Bahai Services: Not on file Active Member of Clubs or Organizations: Not on file Attends Club or Organization Meetings: Not on file Marital Status: Not on file Intimate Partner Violence: Fear of Current or Ex-Partner: Not on file Emotionally Abused: Not on file Physically Abused: Not on file Sexually Abused: Not on file Housing Stability: Unable to Pay for Housing in the Last Year: Not on file Number of Places Lived in the Last Year: Not on file Unstable Housing in the Last Year: Not on file Family History: Family History Problem Relation Age of Onset Cancer Mother skin No Known Problems Father Diabetes Maternal Grandmother Diabetes Maternal Grandfather Medical Decision Making: I have independently reviewed/ordered the following labs: CBC with Differential: Recent Labs 01/23/22 0911 01/25/22 0546 WBC 5.7 9.0 HGB 11.3* 10.6* HCT 34.1* 34.5* PLT 121* 189 LYMPHOPCT 18* 17* MONOPCT 15* 11 BMP: Recent Labs 01/23/22 0911 01/25/22 0546 NA 132* 139 K 4.2 4.4 CL 98 105 CO2 21 20 BUN 14 19 CREATININE 0.68* 0.82 Hepatic Function Panel: Recent Labs 01/23/22 0911 01/25/22 0546 PROT 7.4 7.5 LABALBU 2.8* 2.8* 3.0* BILIDIR 0.09 <0.08 IBILI 0.20 Can not be calculated BILITOT 0.29* 0.20* ALKPHOS 85 99 ALT 32 31 AST 29 21 No results for input(s): RPR in the last 72 hours. No results for input(s): HIV in the last 72 hours. No results for input(s): BC in the last 72 hours. Lab Results Component Value Date CREATININE 0.82 01/25/2022 GLUCOSE 109 01/25/2022 Detailed results: Thank you for allowing us to participate in the care of this patient.Please call with questions. This note is created with the assistance of a speech recognition program. While intending to generate adocument that actually reflects the content of the visit, the document can still have some errors including those of syntax and sound a like substitutions which may escape proof reading. It such instances, actual meaningcan be extrapolated by contextual diversion. Marisol Andrea MD Office: [facility] / office [phone] Comprehensive Nutrition Assessment Type and Reason for Visit: Reassess Nutrition Recommendations/Plan: Continue NPO. Monitor for restart of oral diet. Provide ONS as/if needed. Will monitor labs, weights, and plan of care. Nutrition Assessment: Pt NPO today for I&D of left foot/heel. Pt has been tolerating an oral diet and eating majority of his meals. Will monitor for restart of oral diet. Malnutrition Assessment: Malnutrition Status: At risk for malnutrition Context: Acute Illness Findings of the 6 clinical characteristics of malnutrition: Energy Intake: No significant decrease in energy intake Weight Loss: 7 - Greater than 5% over 1 month Body Fat Loss: No significant body fat loss Muscle Mass Loss: No significant muscle mass loss Fluid Accumulation: (Moderate) Extremities Crown Perforator Operator Strength: Not Performed Estimated Daily Nutrient Needs: Energy (kcal): 25 kcal/kg = 1800 kcals/day; Weight Used for Energy Requirements: Current Protein (g): 1.2-1.5 gm/kg = 90-110 gm pro/day; Weight Used for Protein Requirements: Current Fluid (ml/day): 30 mL/kg = 2200 mL/day or per MD; Method Used for Fluid Requirements: ml/Kg Nutrition Related Findings: Labs/Meds reviewed. Last BM 01/24. Wounds: (Open blister to left heel) Current Nutrition Therapies: Diet NPO Exceptions are: Sips of Water with Meds ADULT DIET; Regular; 4 carb choices (60 gm/meal) Anthropometric Measures: Height: 6' (182.9 cm) Current Body Weight: 160 lb 3.2 oz (72.7 kg) Admission Body Weight: 161 lb (73 kg) Usual Body Weight: 172 lb 3.2 oz (78.1 kg) (12/13/21 bed scale per chart review) Pace Body Weight: 178 lbs; % Pace Body Weight 90 % BMI: 21.7 BMI Categories: Normal Weight (BMI 18.5-24.9) Nutrition Diagnosis: Increased nutrient needs related to (healing) as evidenced by (open blister to left heel) Nutrition Interventions: Food and/or Nutrient Delivery: Continue NPO (As able restart an oral diet. Monitor need for ONS.) Nutrition Education/Counseling: No recommendation at this time Coordination of Nutrition Care: Continue to monitor while inpatient Goals: Oral intakes to meet at least 75% of estimated nutriton needs. Nutrition Monitoring and Evaluation: Behavioral-Environmental Outcomes: None Identified Food/Nutrient Intake Outcomes: Diet Advancement/Tolerance Physical Signs/Symptoms Outcomes: Biochemical Data,GI Status,Fluid Status or Edema,Hemodynamic Status,Weight,Skin Discharge Planning: Too soon to determine Contact: [phone] Images from the original note were not included. [facility] Office: [phone] Mikie Rodriguez DO, Theo Lerma DO, Stuart Natarajan DO, Harpal Tran DO, Prashanth Sadler MD, Deana Raza MD, Florencia Canela MD, Tess Ford MD, Yuliana Saenz MD, Leodan Mak MD, Marimar Ren MD, Fabricio Syed DO, Kyle Broussard DO, Juan Driver MD, Sophia Agustin DO, Lyle Woods MD, Jodi Bain MD, Palomo Drummond MD, Johann Rodriguez DO, Radha Avila MD, Alberto Perez MD, Teresa Quintero, MARINE EQUIPMENT SALES ENGINEER, Tika Hernandez MARINE EQUIPMENT SALES ENGINEER, Mary Meléndez, MARINE EQUIPMENT SALES ENGINEER, Cathleen Moran, [place], Abdirahman Bella, MARINE EQUIPMENT SALES ENGINEER, Leslie Rao MARINE EQUIPMENT SALES ENGINEER, Madalyn uJlien, MARINE EQUIPMENT SALES ENGINEER, Ro Bernard, MARINE EQUIPMENT SALES ENGINEER, Carter Charles, MARINE EQUIPMENT SALES ENGINEER, KO HunterC, Eli Fu DNP, Razia Figueroa DNP, Keri Walker CNP, Sherrie Rea MARINE EQUIPMENT SALES ENGINEER, Moon Waldrop, MARINE EQUIPMENT SALES ENGINEER, Ethel Soto MARINE EQUIPMENT SALES ENGINEER, Jazzy Javier MARINE EQUIPMENT SALES ENGINEER, Shelli Menon, MARINE EQUIPMENT SALES ENGINEER [facility] IN-PATIENT SERVICE [facility] Progress Note 01/25/2022 12:15 PM Name: Tip Ansari Acct: [id number] Room: IP Day: 5 Admit Date: 01/20/2022 10:23 PM PCP: No primary care provider on file. Code Status: Full Code Subjective: C/C: rigors Interval History Status: not changed. Pt seen and examined this morning. Issues with IV access overnight. Remains tachycardic. He is feeling well, however. Going for surgical procedure on his left ankle today. Brief History: Mr. Tip Ansari is a 42 year old gentleman who initially presented to [facility] ED from the local fdc after he developed acute onset chills and shaking. He noted a wound to his left foot as well. Onset was abrupt, as he felt well earlier in the day. Patient was previously at [facility] in December for MRSA bacteremia with tricuspid valve vegetation. He was discharged on dalbavancin weekly x2 weeks in the infusion center with planned follow up CT and echocardiogram. In addition he was found to have septic arthritis of the right knee and left wrist (also positive for MRSA). In addition patient was found to be stool occult blood positive and lateral multifocal scattered nodular opacities in lung with cavitation which was presumed to be septic emboli. The occult blood resolved itself after being placed on vancomycin and patient was discharged back to fdc CT imaging in the ER revealed no evidence for PE, but with scattered airspace opacities are present throughout the lungs bilaterally to a mild degree, overall improved from prior, possibly representing residual pneumonia. Podiatry and ID have evaluated the patient. He is growing nathaniel in his blood and is on IV diflucan. -GIANFRANCO performed on 01/24 -MRI reveals osteomyelitis of the calcaneus with moderate amount of fluid within the retrocalcaneal bursa demonstrated pronounced peripheral enhancement suggesting septic bursitis with involvement of the distal Achilles tendon. Review of Systems: Constitutional: negative for chills, fevers, sweats Respiratory: negative for cough, dyspnea on exertion, shortness of breath, wheezing Cardiovascular: negative for chest pain, chest pressure/discomfort, lower extremity edema, palpitations Gastrointestinal: negative for abdominal pain, constipation, diarrhea, nausea, vomiting Neurological: negative for dizziness, headache Medications: Allergies: Allergies Allergen Reactions Pcn [Penicillins] Anaphylaxis Vancomycin Other (See Comments) Fever and hives chest - despite very slow infusion Current Meds: Scheduled Meds: metoprolol succinate 25 mg Oral Daily lidocaine 1 % injection 5 mL IntraDERmal Once sodium chloride flush 5-40 mL IntraVENous 2 times per day daptomycin (CUBICIN) IVPB 6 mg/kg (Adjusted) IntraVENous Q24H caspofungin (CANCIDAS) IVPB 150 mg IntraVENous Q24H amphotericin B liposome (AMBISOME) IVPB 5 mg/kg IntraVENous Q24H fluconazole 400 mg IntraVENous Q24H insulin lispro 0-6 Units SubCUTAneous TID WC insulin lispro 0-3 Units SubCUTAneous Nightly enoxaparin 40 mg SubCUTAneous Daily Continuous Infusions: sodium chloride 25 mL (01/25/22 1056) dextrose PRN Meds: sodium chloride flush, sodium chloride, traZODone, glucose, dextrose, glucagon (rDNA), dextrose, melatonin, hydrOXYzine, potassium chloride OR potassium alternative oral replacement OR potassium chloride, magnesium sulfate, ondansetron OR ondansetron, polyethylene glycol, acetaminophen OR acetaminophen Data: Past Medical History: has a past medical history of Abscess, Chronic hepatitis C without hepatic coma (HCC), COPD (chronic obstructive pulmonary disease) (HCC), Depression, and Drug addiction (HCC). Social History: reports that he has quit smoking. He has never used smokeless tobacco. He reports current drug use. Drugs: Cocaine, Opiates , Marijuana ([place]), and Methamphetamines (Crystal Meth). He reports that he does not drink alcohol. Family History: Family History Problem Relation Age of Onset Cancer Mother skin No Known Problems Father Diabetes Maternal Grandmother Diabetes Maternal Grandfather Vitals: BP 115/81 Pulse 113 Temp 98.4 F (36.9 C) (Oral) Resp 20 Ht 6' (1.829 m) Wt 160 lb 3.2 oz (72.7 kg) SpO2 98% BMI 21.73 kg/m Temp (24hrs), Av.3 F (36.8 C), Min:98.1 F (36.7 C), Max:98.4 F (36.9 C) Recent Labs 01/23/22 0928 01/23/22 1216 01/23/22 2117 01/24/22 0806 POCGLU 141* 99 122* 97 I/O (24Hr): Intake/Output Summary (Last 24 hours) at 01/25/2022 1215 Last data filed at 01/25/2022 0615 Gross per 24 hour Intake 1270 ml Output 600 ml Net 670 ml Labs: Hematology: Recent Labs 01/23/22 0911 01/25/22 0546 WBC 5.7 9.0 RBC 4.05* 3.85* HGB 11.3* 10.6* HCT 34.1* 34.5* MCV 84.2 89.6 MCH 27.9 27.5 MCHC 33.1 30.7 RDW 16.1* 16.6* PLT 121* 189 MPV 9.8 9.2 Chemistry: Recent Labs 01/23/22 0911 01/25/22 0546 NA 132* 139 K 4.2 4.4 CL 98 105 CO2 21 20 GLUCOSE 148* 109* BUN 14 19 CREATININE 0.68* 0.82 ANIONGAP 13 14 LABGLOM >60 >60 GFRAA >60 >60 CALCIUM 8.9 9.0 PHOS 2.7 -- CKTOTAL -- 9* Recent Labs 01/22/22 1238 01/22/22 1634 01/23/22 0911 01/23/22 0928 01/23/22 1216 01/23/22 2117 01/24/22 0806 01/25/22 0546 PROT -- -- 7.4 -- -- -- -- 7.5 LABALBU -- -- 2.8* 2.8* -- -- -- -- 3.0* AST -- -- 29 -- -- -- -- 21 ALT -- -- 32 -- -- -- -- 31 ALKPHOS -- -- 85 -- -- -- -- 99 BILITOT -- -- 0.29* -- -- -- -- 0.20* BILIDIR -- -- 0.09 -- -- -- -- <0.08 POCGLU 179* 95 -- 141* 99 122* 97 -- ABG: Lab Results Component Value Date PHART 7.380 12/16/2020 [id number] 44.5 12/16/2020 PO2ART 94.4 12/16/2020 [id number] 25.7 12/16/2020 NBEA NOT REPORTED 12/16/2020 PBEA 0.3 12/16/2020 [id number] 97.1 12/16/2020 FIO2 28 12/16/2020 Lab Results Component Value Date/Time SPECIAL RIGHT FOREARM 20ML 01/23/2022 12:11 AM SPECIAL RIGHT HAND 20ML 01/23/2022 12:11 AM Lab Results Component Value Date/Time CULTURE NO GROWTH 2 DAYS 01/23/2022 12:11 AM CULTURE NO GROWTH 2 DAYS 01/23/2022 12:11 AM Radiology: XR CALCANEUS LEFT (MIN 2 VIEWS) Result Date: 01/21/2022 1. Soft tissue swelling along the heel of the left foot. No evidence of osteomyelitis. XR CHEST PORTABLE Result Date: 01/20/2022 Diffuse interstitial opacities may represent mild edema or atypical infection. CT CHEST PULMONARY EMBOLISM W CONTRAST Result Date: 01/20/2022 No evidence of pulmonary embolism or acute thoracic aortic abnormality. Improving aeration. Scattered airspace opacities are present throughout the lungs bilaterally to a mild degree, overall improved from prior, possibly representing residual pneumonia. Physical Examination: General appearance: alert, cooperative and no distress, pleasant, sitting up in bed Mental Status: oriented to person, place and time and normal affect Lungs: clear to auscultation bilaterally, normal effort Heart: tachycardia with regular rhythm, no murmur Abdomen: soft, nontender, nondistended, normal bowel sounds, no masses, hepatomegaly, splenomegaly Extremities: no edema, redness, tenderness in the calves, left heel with wound, pressure bandage present Skin: no gross lesions, rashes, induration Assessment: Hospital Problems Last Modified POA * (Principal) Sepsis due to Nathaniel species without acute organ dysfunction (HCC) 01/23/2022 Yes Endocarditis of tricuspid valve 01/23/2022 Yes Sinus tachycardia 01/23/2022 Yes Septic bursitis of Achilles 01/24/2022 Clinically Undetermined Heroin abuse (HCC) 01/23/2022 Yes Moderate tricuspid regurgitation 01/23/2022 Yes Hepatitis C virus infection without hepatic coma 01/23/2022 Yes Hyperglycemia 01/23/2022 Yes Plan: 1. Sepsis likely due to Nathaniel fungemia - continue fluconazole, amphotericin, daptomycin, caspofungin. ID following. 2. Septic pulmonary emboli from previous endocarditis doxycycline changed to daptomycin, per infectious diseases recommendation. 3. GIANFRANCO with vegetation - CT surgery evaluation - complete course of IV anti-fungals. Then repeat echo. 4. AE to vancomycin - red man syndrome in [facility] ED Left ankle soft tissue infection - significant infection of the retrocalcaneal bursal sac, partially torn Achilles tendon with Achilles tendinosis, and calcaneal osteomyelitis. Podiatry taking patient for I&D at 4:30 pm 5. Heroin abuse - SW and case management following. 6. History of Hepatitis C 7. Essential hypertension - continue Maxide 8. Labs daily 9. PICC to be placed today 10. Disposition: Appreciate CT surgery's input. To OR today for podiatric intervention. Antifungals and antibiotics have been adjusted. FABRICIO SYED DO 01/25/2022 12:15 PM Images from the original note were not included. [employer] Adjustable Clerk Progress Note Date: 01/25/2022 Patient name: Tip Ansari Date of admission: 01/20/2022 10:23 PM Date of : 1980 PCP: No primary care provider on file. Reason for Admission: Sepsis (HCC) [A41.9] Subjective: Clinical Changes /Abnormalities: Patient seen and examined. Denies chest pain or shortness of breath. Tele/vitals/labs reviewed . Discussed case with RN. Sinus tachy monitor HR 116 . No iv fluid running . Npo for I&D of foot per podiatry Review of Systems Medications: Scheduled Meds: metoprolol succinate 25 mg Oral Daily daptomycin (CUBICIN) IVPB 6 mg/kg (Adjusted) IntraVENous Q24H caspofungin (CANCIDAS) IVPB 150 mg IntraVENous Q24H amphotericin B liposome (AMBISOME) IVPB 5 mg/kg IntraVENous Q24H fluconazole 400 mg IntraVENous Q24H insulin lispro 0-6 Units SubCUTAneous TID insulin lispro 0-3 Units SubCUTAneous Nightly sodium chloride flush 5-40 mL IntraVENous 2 times per day enoxaparin 40 mg SubCUTAneous Daily Continuous Infusions: dextrose sodium chloride 25 mL (01/24/22 9683) CBC: Recent Labs 01/23/22 0911 01/25/22 0546 WBC 5.7 9.0 HGB 11.3* 10.6* PLT 121* 189 BMP: Recent Labs 01/23/22 0911 01/25/22 0546 NA 132* 139 K 4.2 4.4 CL 98 105 CO2 21 20 BUN 14 19 CREATININE 0.68* 0.82 GLUCOSE 148* 109* Hepatic: Recent Labs 01/23/22 0911 01/25/22 0546 AST 29 21 ALT 32 31 BILITOT 0.29* 0.20* ALKPHOS 85 99 Troponin: No results for input(s): TROPHS in the last 72 hours. BNP: No results for input(s): BNP in the last 72 hours. Lipids: No results for input(s): CHOL, HDL in the last 72 hours. Invalid input(s): LDLCALCU INR: No results for input(s): INR in the last 72 hours. GIANFRANCO 01/24/2022 - GIANFRANCO findings: LA: Normal NURIA: No thrombus RA: Normal RV: Normal LV: Normal Estimated LVEF: 55% Aorta: Mild atheromatous disease arch Pericardium: No pericardial effusion Septum: No intracardiac shunt via color Doppler. Valves: Mitral Valve: Structurally normal. No significant regurgitation is identified. Aortic Valve: The aortic valve is trileaflet and opens adequately. No regurgitiation is identified. Tricuspid valve: Vegetation noted on the tricuspid valve measuring 1.14 cm x 0.7 cm. Mild to moderate eccentric regurgitation is identified. Pulmonary valve: Normal. No significant regurgitation No thrombus identified. Summary: 1. A GIANFRANCO was performed without complications. 2. LVEF 55% 3. Vegetation noted on the tricuspid valve measuring 1.14 cm x 0.7 cm. Mild to moderate eccentric regurgitation is identified. Cardiovascular Diseases Fellow [facility] Objective: Vitals: BP 115/81 Pulse 113 Temp 98.4 F (36.9 C) (Oral) Resp 20 Ht 6' (1.829 m) Wt 160 lb 3.2 oz (72.7 kg) SpO2 98% BMI 21.73 kg/m General appearance: alert and cooperative with exam HEENT: Head: Normocephalic, no lesions, without obvious abnormality. Neck:no JVD, trachea midline, no adenopathy Lungs: Clear to auscultation Heart: Regular rate and rhythm, s1/s2 auscultated, no murmurs, sinus tachy at 116 Abdomen: soft, non-tender, bowel sounds active Extremities: no edema Neurologic: not done Assessment / Acute Cardiac Problems: 1. Sepsis positive blood culture. 2 history of IV drug use. Patient Active Problem List: Septic embolism (HCC) Heroin abuse (HCC) Hepatitis C virus infection without hepatic coma MRSA bacteremia Acute respiratory failure with hypoxia (HCC) Moderate protein-calorie malnutrition (HCC) Bloody diarrhea Anemia Hypokalemia Right-sided endocarditis due to Staphylococcus aureus 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HCC) Endocarditis of tricuspid valve Moderate tricuspid regurgitation Hyperkalemia Endocarditis Sepsis (HCC) Staphylococcal arthritis of left ankle (HCC) Hyperglycemia Sepsis due to Nathaniel species without acute organ dysfunction (HCC) Sinus tachycardia Septic bursitis of Achilles Plan of Treatment: 1. Tachycardia - could be related to underlying disease such as endocarditis /sepsis/ dehydration - will add low peng BB and discontinue MAXZIDE 2. GIANFRANCO reviewed - CTS note noted . No plan for surgery today Recommend repeating ECHO after completion of antibiotic course per ID 3. Keep k>4, Mg>2 [place] [employer]s Adjustable Clerk [facility]. [phone] Images from the original note were not included. Progress Note Podiatric Medicine and Surgery Subjective CC: Ankle pain, left Patient seen and examined at bedside. OR for I&D in the PM Patient is NPO HPI : Tip Ansari is a 42 y.o. male seen at [facility] for possible septic arthritis of the left ankle. Patient has extensive history of IV drug abuse, he was most recently admitted in December 2021 for concerns of multiple septic joints which resulted in negative cultures. He is known pulmonary septic emboli, tricuspid endocarditis secondary to MRSA infection which are improving since previous admission. He presents today with persistent concerns for infection to the left ankle. He was evaluated by the infectious disease team earlier today who placed MRI ordered for left ankle. Patient states there has been a superficial draining wound to the posterior aspect of the left ankle for approximately 2 weeks. He states at one point drainage and pain were much worse than currently presenting. He has mild discomfort with moving the ankle. States that he has not used any illicit drugs since 01/10/22. Denies injecting into the lower extremity. Denies trauma to the area. ROS: Denies N/V/F/C/SOB/CP. Otherwise negative except at stated in the HPI. Medications: Scheduled Meds: daptomycin (CUBICIN) IVPB 6 mg/kg (Adjusted) IntraVENous Q24H caspofungin (CANCIDAS) IVPB 150 mg IntraVENous Q24H amphotericin B liposome (AMBISOME) IVPB 5 mg/kg IntraVENous Q24H fluconazole 400 mg IntraVENous Q24H insulin lispro 0-6 Units SubCUTAneous TID WC insulin lispro 0-3 Units SubCUTAneous Nightly triamterene-hydroCHLOROthiazide 1 tablet Oral Daily sodium chloride flush 5-40 mL IntraVENous 2 times per day enoxaparin 40 mg SubCUTAneous Daily Continuous Infusions: dextrose sodium chloride 25 mL (01/24/224) PRN Meds:traZODone, glucose, dextrose, glucagon (rDNA), dextrose, melatonin, hydrOXYzine, sodium chloride flush, sodium chloride, potassium chloride OR potassium alternative oral replacement OR potassium chloride, magnesium sulfate, ondansetron OR ondansetron, polyethylene glycol, acetaminophen OR acetaminophen Objective Vitals: Patient Vitals for the past 8 hrs: BP Temp Temp src Pulse Resp SpO2 Weight 01/25/22 0615 115/81 98.4 F (36.9 C) Oral 113 20 160 lb 3.2 oz (72.7 kg) 01/25/22 0000 (!) 133/91 98.4 F (36.9 C) Oral 123 24 98 % Average, Min, and Max for last 24 hours Vitals: TEMPERATURE: Temp Av.3 F (36.8 C) Min: 98 F (36.7 C) Max: 98.4 F (36.9 C) RESPIRATIONS RANGE: Resp Av.7 Min: 17 Max: 30 PULSE RANGE: Pulse Av.1 Min: 105 Max: 137 BLOOD PRESSURE RANGE: Systolic (24hrs), Av , Min:104 , Max:133 ; Diastolic (24hrs), Av, Min:70, Max:91 PULSE OXIMETRY RANGE: SpO2 Av.9 % Min: 94 % Max: 100 % I/O last 3 completed shifts: In: 2140 [P.O.:1080; I.V.:1061] Out: 1150 [Urine:1150] CBC: Recent Labs 01/23/22 0911 01/25/22 0546 WBC 5.7 9.0 HGB 11.3* 10.6* HCT 34.1* 34.5* PLT 121* 189 BMP: Recent Labs 01/23/22 0911 01/25/22 0546 NA 132* 139 K 4.2 4.4 CL 98 105 CO2 21 20 BUN 14 19 CREATININE 0.68* 0.82 GLUCOSE 148* 109* CALCIUM 8.9 9.0 Coags: Recent Labs 01/23/22 0911 01/25/22 0546 PROT 7.4 7.5 Lab Results Component Value Date SEDRATE 58 (H) 01/21/2022 No results for input(s): CRP in the last 72 hours. Physical Exam: dressing remains intact due to surgery. Exam from 01/24. Vascular: DP and PT pulses are palpable. CFT brisk to all digits. Hair growth is present to the level of the digits. Mild nonpitting edema, posterior left ankle. Neuro: Saph/sural/SP/DP/plantar sensation diminished to light touch. Musculoskeletal: Muscle strength is adequate ROM, adequate strength to all lower extremity muscle groups. Gross deformity is absent. Compartments are soft and compressible. No pain with compression of posterior calf. Minimal pain elicited with passive and active ankle joint range of motion. Moderate tenderness with palpation to posterior aspect of ankle, left. Dermatologic: Partial thickness ulcer to level of dermis located at the posterior aspect of the left ankle measures approximately 0.3 cm x 0.2 cm x 0.2 cm. Base is fibrogranular. Minimal drainage noted with no associated mal odor. Erythema absent with out associated increase in warmth. Does not probe to bone, sinus track, or undermine. Crepitus and induration absent. There is suspected fluctuance in the area without clear apex of abscess. Imaging: MRI ANKLE LEFT W WO CONTRAST Final Result 1. Osteomyelitis of the calcaneus with moderate amount of fluid within the retrocalcaneal bursa demonstrating pronounced peripheral enhancement. The fluid extends through the partially torn distal Achilles tendon to the adjacent soft tissues posteriorly. Findings suggesting septic bursitis with involvement of the distal Achilles tendon. There is underlying moderate to severe distal Achilles tendinosis. 2. Evidence for remote sprain of the intact anterior talofibular ligament. XR CALCANEUS LEFT (MIN 2 VIEWS) Final Result 1. Soft tissue swelling along the heel of the left foot. No evidence of osteomyelitis. IR INSERT PICC VAD W SQ PORT >5 YEARS (Results Pending) Cultures: None we will obtain in OR Assessment Tip Ansari is a 42 y.o. male with 1. Subacute osteomyelitis of calcaneus, left lower extremity 2. Possible subacute abscess of ankle, left lower extremity 3. History of IV drug abuse 4. Hepatitis C 5. Peripheral neuropathy Principal Problem: Sepsis due to Nathaniel species without acute organ dysfunction (HCC) Active Problems: Sinus tachycardia Septic bursitis of Achilles Heroin abuse (HCC) Hepatitis C virus infection without hepatic coma Endocarditis of tricuspid valve Moderate tricuspid regurgitation Hyperglycemia Resolved Problems: * No resolved hospital problems. * Plan Patient examined and evaluated at bedside All treatment options discussed in detail with the patient Radiographs of the left foot reviewed and discussed in detail with patient. There is suspected subacute osteomyelitis of the posterior superior aspect of the calcaneal tuberosity. There are cortical erosions with decreased osseous density in this area in comparison with radiographs from 12/13/2021. There is also loss of Kager's triangle suspicious for abscess or effusion. MRI of left ankle ordered demonstrating significant infection of the retrocalcaneal bursal sac, partially torn Achilles tendon with Achilles tendinosis, and calcaneal osteomyelitis Medicine as primary team for medical management ID following ? doxycycline, fluconazole We will discuss case with Dr. Andrea regarding the approach to treating his septic pulmonary embolisms, candidemia, and tricuspid valve endocarditis. OR for I&D at 4:30 pm NPO midnight/hold AC Consent in chart Covid negative Dressing remains intact to Left lower extremity: Mepilex Weightbearing as tolerated to Left lower extremity Discussed with Dr. Aissatou Arceo DPM Podiatric Medicine & Surgery 01/25/2022 at 7:50 AM Intermed messaged regarding IV situation. Darnell Hernandez BLOOD TESTER FOWL placed order for PICC Line. Jacob JuanHosiery Looper notified and stated he will notify PICC team in the morning to try and get this patients PICC placed urgently due to patient having surgery this morning with Podiatry. Unsuccessful with IV Ultrasound at this time. Pt. No longer wanting to be poked at this time, refusing another try. Will message primary team to let them know. Pt. Did not receive his dose of Ambisome antibiotic this evening due to all the issues with trying to gain new access. Pt. IV infiltrated when trying to start antibiotic. Dr. Huitron, Jacob Morales For [facility] messaged and arrived trying to start new IV at bedside. perfect[facility]ed [facility] primary team regarding multiple attempts tried to obtain IV access along with using ultrasound for IV...unsuccessful. Asked if we could try the house doctor clerk travel reservations to place a line. Wilma Quintero, LUCIANO with [facility] said that was ok to do. [id number] jacob maciel for [facility] perfecto, Dr. Main Huitron. Came to the floor and spoke to pt. Regarding place a line or trying another peripheral IV with the ultrasound machine again but pt. Refused at this time. Dr. Huitron explained to literary writer and pt. If he changes his mind to let him know and he will come back again this evening to try. Pt. Agreeable. Pt. Has a #20 Left AC, dressing has been changed. Will continue to use the one line available to instill his 3 separate antibiotics this evening. Hosiery Looper, Drake stated he will try and contact the PICC team in the morning to get pt. Added to list for possible midline or PICC line. Images from the original note were not included. [facility] - Infectious diseases evaluation admission date 01/20/2022 reason for consultation: Sepsis Vanco allergy Impression : Current: Vancomycin reaction- Tachycardia fever red neck syndrome in [place] Pulmonary septic emboli, MRSA -cavitations improved, nodules not resolved Tricuspid valve endocarditis, MRSA Treated w 2 doses dalbavancin Left ankle soft tissue infection, rule out underlying tendinitis Hx of Anaphylaxis to penicillin questionable if he ever tried cephalosporines Hives and red neck S to vanco x 2 01/21 candidemia - Calbicans Elevated CRP 51 /procalcitonin 11 Admission sepsis with fever and chills Left calcaneal OM and possible left ankle abscess Recent Pulmonary septic emboli with cavitary pneumonia-MRSA Tricuspid endocarditis with vegetation and MRSA septicemia MRSA infected left wrist, right knee, Suspected arthritis but culture negative, left ankle and right shoulder. [Shoulder was a joint that was back Heroin use, hepatitis C Other: Patient did have a red neck syndrome infection with fever in [place] and again here Label allergic to vanco Allergy to pnc severe Discussion / summary of stay / plan of care Recommendations Left ankle MRI septic joint and OM calcaneus - await OR plans and at least bone bx fr cx IGANFRANCO + TV vegetation, pend final, likely nathaniel related but can also be mrsa BC nathaniel albicans x 1, but recent MRSA septicemia and septic p emboli. ambizome and caspofungin daptomycin Watch pulm resolving septic emboli from last admission CTS to eval for TV replacement Infection Control Recommendations [place] Precautions Contact Isolation Antimicrobial Stewardship Recommendations Simplification of therapy IV to oral conversion Coordination ofOutpatient Care: Estimated Length of IV antimicrobials: Patient will need Midline / picc Catheter Insertion: Patient will need SNF: Patient will need outpatient wound care: History of Present Illness: Initial history: Tip Ansari is a 42 y.o.-year-old male [facility] because of rigors and fever as well as the left foot wound that seems to have started suddenly in [facility] Recently seen 12/2021 by [facility] for MRSA bacteremia, right knee septic arthritis, left wrist septic arthritis, MRSA was on culture, he had a left ankle joint pain but cultures were negative, and the right shoulder pain but a dry tap tried twice at the time. He also has multifocal pulmonary opacities with cavitations on CT scan of the chest, suggestive of septic emboli, and a tricuspid valve vegetation. Patient was admitted 12/13 and discharged on 12/20 with plan of dalbavancin weekly X2 and then to follow more dalbavancin according to blood cultures and CT scan of the chest, and an ultimate plan to keep him on doxycycline p.o. as long as it takes for the resolution of her symptoms He was also supposed to follow as outpatient Refer to my note on 12/20/2021. After discharge patient decided to take a dose of drugs IV on 01/10, overdosed, by the time EMS and police arrived, the patient woke up on the stretcher. Due to a prior history, patient was incarcerated. Since he has been without drugs, and hoping to be off them for of Patient does have heroin use and hepatitis C, he is also severely allergic to penicillin It looks like he had also a vancomycin reaction, with infusion site redness as well as redness over the neck and face fever hotness tachycardia, most likely at head neck syndrome, with recovered within 10 to 15 minutes. On exam 01/21 he does have a swelling on the posterior aspect of the left heel, over the insertion of the Achilles tendons, with an open wound, he is unsure if this was rubbing on his shoe or white. Otherwise able to move his left ankle joint well. No cellulitis present, all the other joints that used to hurt him have recovered. He has no shortness of breath or cough and no fever. He is doing very well on room air and walking while Interval changes 01/24/2022 Patient Vitals for the past 8 hrs: BP Temp Temp src Pulse Resp SpO2 01/24/22 1300 106/72 115 18 96 % 01/24/22 1200 108/83 125 21 97 % 01/24/22 1121 98 F (36.7 C) Axillary 01/24/22 1100 104/84 114 24 96 % 01/24/22 1030 109/77 112 27 95 % 01/22 C alb in one BC only Unclear significance mostly wo fever or sepsis Yet w hx of IVDU it soul be taken seriously Asking for GIANFRANCO Start fluconazole 01/22 01/23 MRI left ankle + PM calcaneus and possible ankle abscess Fever resolved and only one BC has C alb Feels better Left ankle still edematous and await podiatry for surg plans Would rec exploration and at least bone biopsy for better AB coverage Summary of relevant labs: Labs: WBC 10 CRP51.6 High CREATININE0.73 Lactic Acid, Whole Blood3.3 High Sed Rate58 High [id number] High Micro: BC One f two, 01/21 C alb BC x 4 on 01/20 neg Imaging: MRI left ankle - 1. Osteomyelitis of the calcaneus with moderate amount of fluid within the retrocalcaneal bursa demonstrating pronounced peripheral enhancement. The fluid extends through the partially torn distal Achilles tendon to the adjacent soft tissues posteriorly. Findings suggesting septic bursitis with involvement of the distal Achilles tendon. There is underlying moderate to severe distal Achilles tendinosis. 2. Evidence for remote sprain of the intact anterior talofibular ligament. Xray left foot 1. Soft tissue swelling along the heel of the left foot. No evidence of osteomyelitis. I have personally reviewed the past medical history, past surgical history, medications, social history, and family history, and I haveupdated the database accordingly. Allergies: Pcn [penicillins] and Vancomycin Review of Systems: Review of Systems Constitutional: Negative for activity change and appetite change. HENT: Negative for congestion. Eyes: Negative for photophobia, pain, redness and itching. Respiratory: Negative for apnea. Cardiovascular: Negative for chest pain. Gastrointestinal: Negative for abdominal distention. Endocrine: Negative for polydipsia and polyuria. Genitourinary: Negative for dysuria. Musculoskeletal: Positive for arthralgias. Skin: Negative for color change. Allergic/Immunologic: Negative for food allergies. Neurological: Negative for dizziness, light-headedness and numbness. Hematological: Negative for adenopathy. Psychiatric/Behavioral: Negative for agitation. Physical Examination : Physical Exam Constitutional: Appearance: Normal appearance. He is not ill-appearing. HENT: Head: Normocephalic. Nose: Nose normal. Mouth/Throat: Mouth: Mucous membranes are moist. Eyes: General: No scleral icterus. Conjunctiva/sclera: Conjunctivae normal. Cardiovascular: Rate and Rhythm: Normal rate and regular rhythm. Heart sounds: Normal heart sounds. No murmur heard. Pulmonary: Effort: No respiratory distress. Breath sounds: No stridor. No wheezing. Abdominal: General: There is no distension. Palpations: There is no mass. Tenderness: There is no abdominal tenderness. Genitourinary: Comments: No ortiz Musculoskeletal: General: Tenderness present. No deformity. Cervical back: Neck supple. No rigidity or tenderness. Left lower leg: Edema present. Skin: Coloration: Skin is not jaundiced or pale. Findings: No bruising, erythema, lesion or rash. Neurological: General: No focal deficit present. Mental Status: He is alert. Cranial Nerves: No cranial nerve deficit. Psychiatric: Mood and Affect: Mood normal. Thought Content: Thought content normal. Past Medical History: Past Medical History: Diagnosis Date Abscess 2020 left arm + MRSA Chronic hepatitis C without hepatic coma (HCC) COPD (chronic obstructive pulmonary disease) (HCC) Depression Drug addiction (HCC) heroin Past Surgical History: Past Surgical History: Procedure Laterality Date ABSCESS DRAINAGE Left 2019 arm APPENDECTOMY FINGER SURGERY Right 5 th finger tendon repair TYMPANOSTOMY TUBE PLACEMENT Bilateral Medications: fluconazole 400 mg IntraVENous Q24H doxycycline hyclate 100 mg Oral 2 times per day insulin lispro 0-6 Units SubCUTAneous TID WC insulin lispro 0-3 Units SubCUTAneous Nightly triamterene-hydroCHLOROthiazide 1 tablet Oral Daily sodium chloride flush 5-40 mL IntraVENous 2 times per day enoxaparin 40 mg SubCUTAneous Daily Social History: Social History Socioeconomic History Marital status: Single Spouse name: Not on file Number of children: Not on file Years of education: Not on file Highest education level: Not on file Occupational History Not on file Tobacco Use Smoking status: Former Smoker Smokeless tobacco: Never Used Substance and Sexual Activity Alcohol use: No Drug use: Yes Types: Cocaine, Opiates , Marijuana ([place]), Methamphetamines ([place] Meth) Comment: quit heroin Nov Sexual activity: Not on file Other Topics Concern Not on file Social History Narrative Not on file Social Determinants of Health Financial Resource Strain: Difficulty of Paying Living Expenses: Not on file Food Insecurity: Worried About Running Out of Food in the Last Year: Not on file Ran Out of Food in the Last Year: Not on file Transportation Needs: Lack of Transportation (Medical): Not on file Lack of Transportation (Non-Medical): Not on file Physical Activity: Days of Exercise per Week: Not on file Minutes of Exercise per Session: Not on file Stress: Feeling of Stress : Not on file Social Connections: Frequency of Communication with Friends and Family: Not on file Frequency of Social Gatherings with Friends and Family: Not on file Attends Bahai Services: Not on file Active Member of Clubs or Organizations: Not on file Attends Club or Organization Meetings: Not on file Marital Status: Not on file Intimate Partner Violence: Fear of Current or Ex-Partner: Not on file Emotionally Abused: Not on file Physically Abused: Not on file Sexually Abused: Not on file Housing Stability: Unable to Pay for Housing in the Last Year: Not on file Number of Places Lived in the Last Year: Not on file Unstable Housing in the Last Year: Not on file Family History: Family History Problem Relation Age of Onset Cancer Mother skin No Known Problems Father Diabetes Maternal Grandmother Diabetes Maternal Grandfather Medical Decision Making: I have independently reviewed/ordered the following labs: CBC with Differential: Recent Labs 01/23/22 0911 WBC 5.7 HGB 11.3* HCT 34.1* PLT 121* LYMPHOPCT 18* MONOPCT 15* BMP: Recent Labs 01/23/22 0911 NA 132* K 4.2 CL 98 CO2 21 BUN 14 CREATININE 0.68* Hepatic Function Panel: Recent Labs 01/23/22 0911 PROT 7.4 LABALBU 2.8* 2.8* BILIDIR 0.09 IBILI 0.20 BILITOT 0.29* ALKPHOS 85 ALT 32 AST 29 No results for input(s): RPR in the last 72 hours. No results for input(s): HIV in the last 72 hours. No results for input(s): BC in the last 72 hours. Lab Results Component Value Date CREATININE 0.68 01/23/2022 GLUCOSE 148 01/23/2022 Detailed results: Thank you for allowing us to participate in the care of this patient.Please call with questions. This note is created with the assistance of a speech recognition program. While intending to generate adocument that actually reflects the content of the visit, the document can still have some errors including those of syntax and sound a like substitutions which may escape proof reading. It such instances, actual meaningcan be extrapolated by contextual diversion. Marisol Andrea MD Office: Perfect serve / office [phone] Images from the original note were not included. [facility] Office: [phone] Mikie Rodriguez DO, Theo Lerma DO, Stuart Natarajan DO, Harpal Tran DO, Prashanth Sadler MD, Deana Raza MD, Florencia Canela MD, Tess Ford MD, Yuliana Saenz MD, Leodan Mak MD, Marimar Ren MD, Fabricio Syed DO, Kyle Broussard DO, Juan Driver MD, Sophia Agustin DO, Lyle Woods MD, Jodi Bain MD, Palomo Drummond MD, Johann Rodriguez DO, Radha Avila MD, Alberto Perez MD, Teresa Quintero, MARINE EQUIPMENT SALES ENGINEER, Tika Hernandez, MARINE EQUIPMENT SALES ENGINEER, Mary Meléndez, MARINE EQUIPMENT SALES ENGINEER, Cathleen Moran, HAIR BLENDER, Abdirahman Bella, MARINE EQUIPMENT SALES ENGINEER, Leslie Rao, MARINE EQUIPMENT SALES ENGINEER, Madalyn Julien, MARINE EQUIPMENT SALES ENGINEER, Ro Bernard, MARINE EQUIPMENT SALES ENGINEER, Carter Charles, MARINE EQUIPMENT SALES ENGINEER, Mckayla Abraham, PA-C, Eli Fu, DNP, Razia Figueroa, DNP, Keri Walker, MARINE EQUIPMENT SALES ENGINEER, Sherrie Rea, MARINE EQUIPMENT SALES ENGINEER, Moon Waldrop, MARINE EQUIPMENT SALES ENGINEER, Ethel Soto, MARINE EQUIPMENT SALES ENGINEER, Jazyz Javier, MARINE EQUIPMENT SALES ENGINEER, Shelli Menon, MARINE EQUIPMENT SALES ENGINEER [facility] IN-PATIENT SERVICE [facility] Progress Note 01/24/2022 2:24 PM Name: Tip Ansari Acct: [id number] Room: Day: 4 Admit Date: 01/20/2022 10:23 PM PCP: No primary care provider on file. Code Status: Full Code Subjective: C/C: rigors Interval History Status: not changed. Pt seen and examined this morning. Patient is just returned from [facility]. Otherwise, he feels unchanged. He is hungry and is requesting food. Still tachycardic. Brief History: Mr. Tip Ansari is a 42 year old gentleman who initially presented to [facility] ED from the local fdc after he developed acute onset chills and shaking. He noted a wound to his left foot as well. Onset was abrupt, as he felt well earlier in the day. Patient was previously at [facility] in December for MRSA bacteremia with tricuspid valve vegetation. He was discharged on dalbavancin weekly x2 weeks in the infusion center with planned follow up CT and echocardiogram. In addition he was found to have septic arthritis of the right knee and left wrist (also positive for MRSA). In addition patient was found to be stool occult blood positive and lateral multifocal scattered nodular opacities in lung with cavitation which was presumed to be septic emboli. The occult blood resolved itself after being placed on vancomycin and patient was discharged back to fdc CT imaging in the ER revealed no evidence for PE, but with scattered airspace opacities are present throughout the lungs bilaterally to a mild degree, overall improved from prior, possibly representing residual pneumonia. Podiatry and ID have evaluated the patient. He is growing nathaniel in his blood and is on IV diflucan. -GIANFRANCO performed on 01/24 -MRI reveals osteomyelitis of the calcaneus with moderate amount of fluid within the retrocalcaneal bursa demonstrated pronounced peripheral enhancement suggesting septic bursitis with involvement of the distal Achilles tendon. Review of Systems: Constitutional: negative for chills, fevers, sweats Respiratory: negative for cough, dyspnea on exertion, shortness of breath, wheezing Cardiovascular: negative for chest pain, chest pressure/discomfort, lower extremity edema, palpitations Gastrointestinal: negative for abdominal pain, constipation, diarrhea, nausea, vomiting Neurological: negative for dizziness, headache Medications: Allergies: Allergies Allergen Reactions Pcn [Penicillins] Anaphylaxis Vancomycin Other (See Comments) Fever and hives chest - despite very slow infusion Current Meds: Scheduled Meds: lidocaine PF 10 mL IntraDERmal Once fluconazole 400 mg IntraVENous Q24H doxycycline hyclate 100 mg Oral 2 times per day insulin lispro 0-6 Units SubCUTAneous TID WC insulin lispro 0-3 Units SubCUTAneous Nightly triamterene-hydroCHLOROthiazide 1 tablet Oral Daily sodium chloride flush 5-40 mL IntraVENous 2 times per day enoxaparin 40 mg SubCUTAneous Daily Continuous Infusions: dextrose sodium chloride Stopped (01/24/22225) PRN Meds: traZODone, glucose, dextrose, glucagon (rDNA), dextrose, melatonin, hydrOXYzine, sodium chloride flush, sodium chloride, potassium chloride OR potassium alternative oral replacement OR potassium chloride, magnesium sulfate, ondansetron OR ondansetron, polyethylene glycol, acetaminophen OR acetaminophen Data: Past Medical History: has a past medical history of Abscess, Chronic hepatitis C without hepatic coma (HCC), COPD (chronic obstructive pulmonary disease) (HCC), Depression, and Drug addiction (HCC). Social History: reports that he has quit smoking. He has never used smokeless tobacco. He reports current drug use. Drugs: Cocaine, Opiates , Marijuana ([place]), and Methamphetamines (Crystal Meth). He reports that he does not drink alcohol. Family History: Family History Problem Relation Age of Onset Cancer Mother skin No Known Problems Father Diabetes Maternal Grandmother Diabetes Maternal Grandfather Vitals: BP 106/72 Pulse 115 Temp 98 F (36.7 C) (Axillary) Resp 18 Ht 6' (1.829 m) Wt 161 lb (73 kg) SpO2 96% BMI 21.84 kg/m Temp (24hrs), Av.2 F (36.8 C), Min:98 F (36.7 C), Max:98.4 F (36.9 C) Recent Labs 01/23/22 0928 01/23/22 12101/23/22211601/24/22 0806 POCGLU 141* 99 122* 97 I/O (24Hr): Intake/Output Summary (Last 24 hours) at 01/24/2022 1424 Last data filed at 01/24/2022 0615 Gross per 24 hour Intake 871 ml Output 550 ml Net 321 ml Labs: Hematology: Recent Labs 01/23/22 0911 WBC 5.7 RBC 4.05* HGB 11.3* HCT 34.1* MCV 84.2 MCH 27.9 MCHC 33.1 RDW 16.1* PLT 121* MPV 9.8 Chemistry: Recent Labs 01/23/22 0911 NA 132* K 4.2 CL 98 CO2 21 GLUCOSE 148* BUN 14 CREATININE 0.68* ANIONGAP 13 LABGLOM >60 GFRAA >60 CALCIUM 8.9 PHOS 2.7 Recent Labs 01/21/22 1427 01/21/22 2146 01/22/22 1238 01/22/22 1634 01/23/22 0911 01/23/22 0928 01/23/22 1216 01/23/22211601/24/22 0806 PROT -- -- -- -- 7.4 -- -- -- -- LABALBU -- -- -- -- 2.8* 2.8* -- -- -- -- LABA1C 5.6 -- -- -- -- -- -- -- -- AST -- -- -- -- 29 -- -- -- -- ALT -- -- -- -- 32 -- -- -- -- ALKPHOS -- -- -- -- 85 -- -- -- -- BILITOT -- -- -- -- 0.29* -- -- -- -- BILIDIR -- -- -- -- 0.09 -- -- -- -- POCGLU -- < > 179* 95 -- 141* 99 122* 97 < > = values in this interval not displayed. ABG: Lab Results Component Value Date PHART 7.380 12/16/2020 [id number] 44.5 12/16/2020 PO2ART 94.4 12/16/2020 [id number] 25.7 12/16/2020 NBEA NOT REPORTED 12/16/2020 PBEA 0.3 12/16/2020 [id number] 97.1 12/16/2020 FIO2 28 12/16/2020 Lab Results Component Value Date/Time SPECIAL RIGHT FOREARM 20ML 01/23/2022 12:11 AM SPECIAL RIGHT HAND 20ML 01/23/2022 12:11 AM Lab Results Component Value Date/Time CULTURE NO GROWTH 1 DAY 01/23/2022 12:11 AM CULTURE NO GROWTH 1 DAY 01/23/2022 12:11 AM Radiology: XR CALCANEUS LEFT (MIN 2 VIEWS) Result Date: 01/21/2022 1. Soft tissue swelling along the heel of the left foot. No evidence of osteomyelitis. XR CHEST PORTABLE Result Date: 01/20/2022 Diffuse interstitial opacities may represent mild edema or atypical infection. CT CHEST PULMONARY EMBOLISM W CONTRAST Result Date: 01/20/2022 No evidence of pulmonary embolism or acute thoracic aortic abnormality. Improving aeration. Scattered airspace opacities are present throughout the lungs bilaterally to a mild degree, overall improved from prior, possibly representing residual pneumonia. Physical Examination: General appearance: alert, cooperative and no distress, pleasant, sitting up in bed Mental Status: oriented to person, place and time and normal affect Lungs: clear to auscultation bilaterally, normal effort Heart: tachycardia with regular rhythm, no murmur Abdomen: soft, nontender, nondistended, normal bowel sounds, no masses, hepatomegaly, splenomegaly Extremities: no edema, redness, tenderness in the calves, left heel with wound, pressure bandage present Skin: no gross lesions, rashes, induration Assessment: Hospital Problems Last Modified POA * (Principal) Sepsis due to Nathaniel species without acute organ dysfunction (HCC) 01/23/2022 Yes Endocarditis of tricuspid valve 01/23/2022 Yes Sinus tachycardia 01/23/2022 Yes Septic bursitis of Achilles 01/24/2022 Clinically Undetermined Heroin abuse (HCC) 01/23/2022 Yes Moderate tricuspid regurgitation 01/23/2022 Yes Hepatitis C virus infection without hepatic coma 01/23/2022 Yes Hyperglycemia 01/23/2022 Yes Plan: 1. Sepsis likely due to Nathaniel fungemia - continue fluconazole. ID following. 2. Septic pulmonary emboli from previous endocarditis continue doxycycline at infectious diseases recommendation. 3. Presumed endocarditis - [facility] result; cardiology following 4. AE to vancomycin - red man syndrome in [place] ED 5. Left ankle soft tissue infection - r/o osteomyelitis. MRI with findings concerning for septic bursitis. Podiatry following. Appreciate their recommendations 6. Heroin abuse - SW and case management following. 7. History of Hepatitis C 8. Essential hypertension - continue Maxide 9. Labs tomorrow 10. PICC vs midline at ID's discretion 11. Disposition: Await [facility] results. Await podiatry input regarding left ankle septic bursitis. Awaiting long-term recommendations from infectious disease regarding antimicrobial therapy. FABRICIO SYED DO 01/24/2022 2:24 PM Images from the original note were not included. Progress Note Podiatric Medicine and Surgery Subjective CC: Ankle pain, left Patient seen and examined at bedside and reports mild pain to left ankle slightly decreased from the day before. Patient understands the need for operative intervention to washout his left ankle to decrease bacterial load, take tissue samples, take bone samples, remove septic bursitis. He understood and agreed. Vital signs, labs, and imaging reviewed await MRI No acute events overnight. Afebrile, vital signs stable N.p.o. midnight, hold AC, Covid rapid ordered, consent obtained this patient was in [employer] Aide: Consent consists of incision and drainage with debridement of all nonviable soft tissue and bone, bone culture, soft tissue culture, possible wound VAC HPI : Tip Ansari is a 42 y.o. male seen at [facility] for possible septic arthritis of the left ankle. Patient has extensive history of IV drug abuse, he was most recently admitted in December 2021 for concerns of multiple septic joints which resulted in negative cultures. He is known pulmonary septic emboli, tricuspid endocarditis secondary to MRSA infection which are improving since previous admission. He presents today with persistent concerns for infection to the left ankle. He was evaluated by the infectious disease team earlier today who placed MRI ordered for left ankle. Patient states there has been a superficial draining wound to the posterior aspect of the left ankle for approximately 2 weeks. He states at one point drainage and pain were much worse than currently presenting. He has mild discomfort with moving the ankle. States that he has not used any illicit drugs since 01/10/22. Denies injecting into the lower extremity. Denies trauma to the area. ROS: Denies N/V/F/C/SOB/CP. Otherwise negative except at stated in the HPI. Medications: Scheduled Meds: lidocaine PF 10 mL IntraDERmal Once fluconazole 400 mg IntraVENous Q24H doxycycline hyclate 100 mg Oral 2 times per day insulin lispro 0-6 Units SubCUTAneous TID WC insulin lispro 0-3 Units SubCUTAneous Nightly triamterene-hydroCHLOROthiazide 1 tablet Oral Daily sodium chloride flush 5-40 mL IntraVENous 2 times per day enoxaparin 40 mg SubCUTAneous Daily Continuous Infusions: dextrose sodium chloride Stopped (01/24/22 0226) PRN Meds:traZODone, glucose, dextrose, glucagon (rDNA), dextrose, melatonin, hydrOXYzine, sodium chloride flush, sodium chloride, potassium chloride OR potassium alternative oral replacement OR potassium chloride, magnesium sulfate, ondansetron OR ondansetron, polyethylene glycol, acetaminophen OR acetaminophen Objective Vitals: Patient Vitals for the past 8 hrs: BP Temp Temp src Pulse Resp SpO2 01/24/22 0900 105 17 94 % 01/24/22 0800 108 25 95 % 01/24/22 0730 110/70 110 25 95 % 01/24/22 0700 110 18 95 % 01/24/22 0554 109/71 98.4 F (36.9 C) Oral 105 21 97 % Average, Min, and Max for last 24 hours Vitals: TEMPERATURE: Temp Av.2 F (36.8 C) Min: 97.8 F (36.6 C) Max: 98.4 F (36.9 C) RESPIRATIONS RANGE: Resp Av.6 Min: 17 Max: 30 PULSE RANGE: Pulse Av.7 Min: 105 Max: 124 BLOOD PRESSURE RANGE: Systolic (24hrs), Av , Min:100 , Max:122 ; Diastolic (24hrs), Av, Min:70, Max:89 PULSE OXIMETRY RANGE: SpO2 Av.2 % Min: 94 % Max: 98 % I/O last 3 completed shifts: In: 871 [P.O.:360; I.V.:511] Out: 2150 [Urine:2150] CBC: Recent Labs 01/23/22 0911 WBC 5.7 HGB 11.3* HCT 34.1* PLT 121* BMP: Recent Labs 01/23/22 0911 NA 132* K 4.2 CL 98 CO2 21 BUN 14 CREATININE 0.68* GLUCOSE 148* CALCIUM 8.9 Coags: Recent Labs 01/23/22 0911 PROT 7.4 Lab Results Component Value Date SEDRATE 58 (H) 01/21/2022 No results for input(s): CRP in the last 72 hours. Physical Exam: Vascular: DP and PT pulses are palpable. CFT brisk to all digits. Hair growth is present to the level of the digits. Mild nonpitting edema, posterior left ankle. Neuro: Saph/sural/SP/DP/plantar sensation diminished to light touch. Musculoskeletal: Muscle strength is adequate ROM, adequate strength to all lower extremity muscle groups. Gross deformity is absent. Compartments are soft and compressible. No pain with compression of posterior calf. Minimal pain elicited with passive and active ankle joint range of motion. Moderate tenderness with palpation to posterior aspect of ankle, left. Dermatologic: Partial thickness ulcer to level of dermis located at the posterior aspect of the left ankle measures approximately 0.3 cm x 0.2 cm x 0.2 cm. Base is fibrogranular. Minimal drainage noted with no associated mal odor. Erythema absent with out associated increase in warmth. Does not probe to bone, sinus track, or undermine. Crepitus and induration absent. There is suspected fluctuance in the area without clear apex of abscess. Imaging: MRI ANKLE LEFT W WO CONTRAST Final Result 1. Osteomyelitis of the calcaneus with moderate amount of fluid within the retrocalcaneal bursa demonstrating pronounced peripheral enhancement. The fluid extends through the partially torn distal Achilles tendon to the adjacent soft tissues posteriorly. Findings suggesting septic bursitis with involvement of the distal Achilles tendon. There is underlying moderate to severe distal Achilles tendinosis. 2. Evidence for remote sprain of the intact anterior talofibular ligament. XR CALCANEUS LEFT (MIN 2 VIEWS) Final Result 1. Soft tissue swelling along the heel of the left foot. No evidence of osteomyelitis. Cultures: None we will obtain in OR Assessment Tip Ansari is a 42 y.o. male with 1. Subacute osteomyelitis of calcaneus, left lower extremity 2. Possible subacute abscess of ankle, left lower extremity 3. History of IV drug abuse 4. Hepatitis C 5. 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 * Plan Patient examined and evaluated at bedside All treatment options discussed in detail with the patient Radiographs of the left foot reviewed and discussed in detail with patient. There is suspected subacute osteomyelitis of the posterior superior aspect of the calcaneal tuberosity. There are cortical erosions with decreased osseous density in this area in comparison with radiographs from 12/13/2021. There is also loss of Kager's triangle suspicious for abscess or effusion. MRI of left ankle ordered demonstrating significant infection of the retrocalcaneal bursal sac, partially torn Achilles tendon with Achilles tendinosis, and calcaneal osteomyelitis Medicine as primary team for medical management ID following ? doxycycline, fluconazole We will discuss case with Dr. Andrea regarding the approach to treating his septic pulmonary embolisms, candidemia, and tricuspid valve endocarditis. We will proceed with I&D 01/25/22 due to emergent risk NPO midnight/hold AC Consent in chart Covid rapid ordered Dressing applied to Left lower extremity: Mepilex Weightbearing as tolerated to Left lower extremity Discussed with Dr. Aissatou Garcia DPM Podiatric Medicine & Surgery 01/24/2022 at 9:52 AM Images from the original note were not included. [facility] - Infectious diseases evaluation admission date 01/20/2022 reason for consultation: Sepsis Vanco allergy Impression : Current: Vancomycin reaction- Tachycardia fever red neck syndrome in [place] Pulmonary septic emboli, MRSA -cavitations improved, nodules not resolved Tricuspid valve endocarditis, MRSA Treated w 2 doses dalbavancin Left ankle soft tissue infection, rule out underlying tendinitis Hx of Anaphylaxis to penicillin questionable if he ever tried cephalosporines Hives and red neck S to vanco x 2 01/21 candidemia - Cal[place] Elevated CRP 51 /procalcitonin 11 Admission sepsis with fever and chills Left calcaneal OM and possible left ankle abscess Recent Pulmonary septic emboli with cavitary pneumonia-MRSA Tricuspid endocarditis with vegetation and MRSA septicemia MRSA infected left wrist, right knee, Suspected arthritis but culture negative, left ankle and right shoulder. [Shoulder was a joint that was back Heroin use, hepatitis C Other: Patient did have a red neck syndrome infection with fever in [place] and again here Label allergic to vanco Discussion / summary of stay / plan of care Recommendations Left ankle MRI septic joint and OM calcaneus - await OR plans and at least bone bx fr cx BC nathaniel albicans x 1 Asking for GIANFRANCO Start fluconazole 01/22 Keep doxy for pulm nodules - to help resolve past MRSA septic pulm emboli Infection Control Recommendations [place] Precautions Contact Isolation Antimicrobial Stewardship Recommendations Simplification of therapy IV to oral conversion Coordination ofOutpatient Care: Estimated Length of IV antimicrobials: Patient will need Midline / picc Catheter Insertion: Patient will need SNF: Patient will need outpatient wound care: History of Present Illness: Initial history: Tip Ansari is a 42 y.o.-year-old male sent to patient from [facility]dc because of rigors and fever as well as the left foot wound that seems to have started suddenly in fdc Recently seen 12/2021 by [facility] for MRSA bacteremia, right knee septic arthritis, left wrist septic arthritis, MRSA was on culture, he had a left ankle joint pain but cultures were negative, and the right shoulder pain but a dry tap tried twice at the time. He also has multifocal pulmonary opacities with cavitations on CT scan of the chest, suggestive of septic emboli, and a tricuspid valve vegetation. Patient was admitted 12/13 and discharged on 12/20 with plan of dalbavancin weekly X2 and then to follow more dalbavancin according to blood cultures and CT scan of the chest, and an ultimate plan to keep him on doxycycline p.o. as long as it takes for the resolution of her symptoms He was also supposed to follow as outpatient Refer to my note on 12/20/2021. After discharge patient decided to take a dose of drugs IV on 01/10, overdosed, by the time EMS and police arrived, the patient woke up on the stretcher. Due to a prior history, patient was incarcerated. Since he has been without drugs, and hoping to be off them for of Patient does have heroin use and hepatitis C, he is also severely allergic to penicillin It looks like he had also a vancomycin reaction, with infusion site redness as well as redness over the neck and face fever hotness tachycardia, most likely at head neck syndrome, with recovered within 10 to 15 minutes. On exam 01/21 he does have a swelling on the posterior aspect of the left heel, over the insertion of the Achilles tendons, with an open wound, he is unsure if this was rubbing on his shoe or white. Otherwise able to move his left ankle joint well. No cellulitis present, all the other joints that used to hurt him have recovered. He has no shortness of breath or cough and no fever. He is doing very well on room air and walking while Interval changes 01/23/2022 Patient Vitals for the past 8 hrs: BP Temp Temp src Pulse Resp SpO2 01/23/22 2100 100/89 98.2 F (36.8 C) Oral 122 26 97 % 01/23/22 1600 122 30 98 % 01/23/22 1555 121/85 98.4 F (36.9 C) Oral 121 28 98 % 01/22 C alb in one BC only Unclear significance mostly wo fever or sepsis Yet w hx of IVDU it soul be taken seriously Asking for GIANFRANCO Start fluconazole 01/22 01/23 MRI left ankle + PM calcaneus and possible ankle abscess Fever resolved and only one BC has C alb Feels better Left ankle still edematous and await podiatry for surg plans Would rec exploration and at least bone biopsy for better AB coverage Summary of relevant labs: Labs: WBC 10 CRP51.6 High CREATININE0.73 Lactic Acid, Whole Blood3.3 High Sed Rate58 High Sgyzstqrdivfm39.47 High Micro: BC One f two, 01/21 C alb BC x 4 on 01/20 neg Imaging: MRI left ankle - 1. Osteomyelitis of the calcaneus with moderate amount of fluid within the retrocalcaneal bursa demonstrating pronounced peripheral enhancement. The fluid extends through the partially torn distal Achilles tendon to the adjacent soft tissues posteriorly. Findings suggesting septic bursitis with involvement of the distal Achilles tendon. There is underlying moderate to severe distal Achilles tendinosis. 2. Evidence for remote sprain of the intact anterior talofibular ligament. Xray left foot 1. Soft tissue swelling along the heel of the left foot. No evidence of osteomyelitis. I have personally reviewed the past medical history, past surgical history, medications, social history, and family history, and I haveupdated the database accordingly. Allergies: Pcn [penicillins] and Vancomycin Review of Systems: Review of Systems Constitutional: Negative for activity change and appetite change. HENT: Negative for congestion. Eyes: Negative for pain and itching. Respiratory: Negative for apnea. Cardiovascular: Negative for chest pain. Gastrointestinal: Negative for abdominal distention. Endocrine: Negative for polydipsia and polyuria. Genitourinary: Negative for dysuria. Musculoskeletal: Positive for arthralgias. Skin: Negative for color change. Allergic/Immunologic: Negative for food allergies. Neurological: Negative for dizziness, light-headedness and numbness. Hematological: Negative for adenopathy. Psychiatric/Behavioral: Negative for agitation. Physical Examination : Physical Exam Constitutional: Appearance: Normal appearance. He is not ill-appearing. HENT: Head: Normocephalic. Nose: Nose normal. Mouth/Throat: Mouth: Mucous membranes are moist. Eyes: General: No scleral icterus. Conjunctiva/sclera: Conjunctivae normal. Cardiovascular: Rate and Rhythm: Normal rate and regular rhythm. Heart sounds: Normal heart sounds. No murmur heard. Pulmonary: Effort: No respiratory distress. Breath sounds: No stridor. No wheezing. Abdominal: General: There is no distension. Palpations: There is no mass. Tenderness: There is no abdominal tenderness. Genitourinary: Comments: No ortiz Musculoskeletal: General: Tenderness present. No deformity. Cervical back: Neck supple. No rigidity or tenderness. Left lower leg: Edema present. Skin: Coloration: Skin is not jaundiced or pale. Findings: No bruising or erythema. Neurological: General: No focal deficit present. Mental Status: He is alert. Cranial Nerves: No cranial nerve deficit. Psychiatric: Mood and Affect: Mood normal. Thought Content: Thought content normal. Past Medical History: Past Medical History: Diagnosis Date Abscess 2020 left arm + MRSA Chronic hepatitis C without hepatic coma (HCC) COPD (chronic obstructive pulmonary disease) (HCC) Depression Drug addiction (HCC) heroin Past Surgical History: Past Surgical History: Procedure Laterality Date ABSCESS DRAINAGE Left 2019 arm APPENDECTOMY FINGER SURGERY Right 5 th finger tendon repair TYMPANOSTOMY TUBE PLACEMENT Bilateral Medications: lidocaine PF 10 mL IntraDERmal Once fluconazole 400 mg IntraVENous Q24H doxycycline hyclate 100 mg Oral 2 times per day insulin lispro 0-6 Units SubCUTAneous TID WC insulin lispro 0-3 Units SubCUTAneous Nightly triamterene-hydroCHLOROthiazide 1 tablet Oral Daily sodium chloride flush 5-40 mL IntraVENous 2 times per day enoxaparin 40 mg SubCUTAneous Daily Social History: Social History Socioeconomic History Marital status: Single Spouse name: Not on file Number of children: Not on file Years of education: Not on file Highest education level: Not on file Occupational History Not on file Tobacco Use Smoking status: Former Smoker Smokeless tobacco: Never Used Substance and Sexual Activity Alcohol use: No Drug use: Yes Types: Cocaine, Opiates , Marijuana ([place]), Methamphetamines ([place]) Comment: quit heroin Nov Sexual activity: Not on file Other Topics Concern Not on file Social History Narrative Not on file Social Determinants of Health Financial Resource Strain: Difficulty of Paying Living Expenses: Not on file Food Insecurity: Worried About Running Out of Food in the Last Year: Not on file Ran Out of Food in the Last Year: Not on file Transportation Needs: Lack of Transportation (Medical): Not on file Lack of Transportation (Non-Medical): Not on file Physical Activity: Days of Exercise per Week: Not on file Minutes of Exercise per Session: Not on file Stress: Feeling of Stress : Not on file Social Connections: Frequency of Communication with Friends and Family: Not on file Frequency of Social Gatherings with Friends and Family: Not on file Attends Bahai Services: Not on file Active Member of Clubs or Organizations: Not on file Attends Club or Organization Meetings: Not on file Marital Status: Not on file Intimate Partner Violence: Fear of Current or Ex-Partner: Not on file Emotionally Abused: Not on file Physically Abused: Not on file Sexually Abused: Not on file Housing Stability: Unable to Pay for Housing in the Last Year: Not on file Number of Places Lived in the Last Year: Not on file Unstable Housing in the Last Year: Not on file Family History: Family History Problem Relation Age of Onset Cancer Mother skin No Known Problems Father Diabetes Maternal Grandmother Diabetes Maternal Grandfather Medical Decision Making: I have independently reviewed/ordered the following labs: CBC with Differential: Recent Labs 01/23/22 0911 WBC 5.7 HGB 11.3* HCT 34.1* PLT 121* LYMPHOPCT 18* MONOPCT 15* BMP: Recent Labs 01/21/22 0458 01/23/22 0911 NA 140 132* K 3.9 4.2 CL 106 98 CO2 20 21 BUN 17 14 CREATININE 0.73 0.68* Hepatic Function Panel: Recent Labs 01/23/22 0911 PROT 7.4 LABALBU 2.8* 2.8* BILIDIR 0.09 IBILI 0.20 BILITOT 0.29* ALKPHOS 85 ALT 32 AST 29 No results for input(s): RPR in the last 72 hours. No results for input(s): HIV in the last 72 hours. No results for input(s): BC in the last 72 hours. Lab Results Component Value Date CREATININE 0.68 01/23/2022 GLUCOSE 148 01/23/2022 Detailed results: Thank you for allowing us to participate in the care of this patient.Please call with questions. This note is created with the assistance of a speech recognition program. While intending to generate adocument that actually reflects the content of the visit, the document can still have some errors including those of syntax and sound a like substitutions which may escape proof reading. It such instances, actual meaningcan be extrapolated by contextual diversion. Marisol Andrea MD Office: [facility] / office [phone] Images from the original note were not included. Progress Note Podiatric Medicine and Surgery Subjective CC: Ankle pain, left Patient seen and examined at bedside and reports mild pain to left ankle slightly decreased from the day before. Vital signs, labs, and imaging reviewed await MRI No acute events overnight. Afebrile, vital signs stable HPI : Tip Ansari is a 42 y.o. male seen at [facility] for possible septic arthritis of the left ankle. Patient has extensive history of IV drug abuse, he was most recently admitted in December 2021 for concerns of multiple septic joints which resulted in negative cultures. He is known pulmonary septic emboli, tricuspid endocarditis secondary to MRSA infection which are improving since previous admission. He presents today with persistent concerns for infection to the left ankle. He was evaluated by the infectious disease team earlier today who placed MRI ordered for left ankle. Patient states there has been a superficial draining wound to the posterior aspect of the left ankle for approximately 2 weeks. He states at one point drainage and pain were much worse than currently presenting. He has mild discomfort with moving the ankle. States that he has not used any illicit drugs since 01/10/22. Denies injecting into the lower extremity. Denies trauma to the area. ROS: Denies N/V/F/C/SOB/CP. Otherwise negative except at stated in the HPI. Medications: Scheduled Meds: lidocaine PF 10 mL IntraDERmal Once fluconazole 400 mg IntraVENous Q24H doxycycline hyclate 100 mg Oral 2 times per day insulin lispro 0-6 Units SubCUTAneous TID insulin lispro 0-3 Units SubCUTAneous Nightly triamterene-hydroCHLOROthiazide 1 tablet Oral Daily sodium chloride flush 5-40 mL IntraVENous 2 times per day enoxaparin 40 mg SubCUTAneous Daily Continuous Infusions: dextrose sodium chloride PRN Meds:traZODone, glucose, dextrose, glucagon (rDNA), dextrose, melatonin, hydrOXYzine, sodium chloride flush, sodium chloride, potassium chloride OR potassium alternative oral replacement OR potassium chloride, magnesium sulfate, ondansetron OR ondansetron, polyethylene glycol, acetaminophen OR acetaminophen Objective Vitals: Patient Vitals for the past 8 hrs: BP Temp Temp src Pulse Resp SpO2 01/23/22 0947 114 01/23/22 0900 113 23 96 % 01/23/22 0815 118/88 126 97 % 01/23/22 0800 98.9 F (37.2 C) Axillary 126 98 % 01/23/22 0730 119 95 % 01/23/22 0436 117/73 98.2 F (36.8 C) Oral 111 18 96 % Average, Min, and Max for last 24 hours Vitals: TEMPERATURE: Temp Av.8 F (37.1 C) Min: 98.2 F (36.8 C) Max: 99.8 F (37.7 C) RESPIRATIONS RANGE: Resp Av Min: 18 Max: 33 PULSE RANGE: Pulse Av Min: 111 Max: 128 BLOOD PRESSURE RANGE: Systolic (24hrs), Av , Min:116 , Max:135 ; Diastolic (24hrs), Av, Min:73, Max:99 PULSE OXIMETRY RANGE: SpO2 Av.2 % Min: 95 % Max: 100 % I/O last 3 completed shifts: In: - Out: 3550 [Urine:3550] CBC: Recent Labs 01/20/22 1540 01/21/2245701/23/22 0911 WBC 10.6 -- 5.7 HGB 11.1* -- 11.3* HCT 35.3* -- 34.1* PLT 130* -- 121* CRP -- 51.6* -- BMP: Recent Labs 01/20/22 1540 01/21/22457 NA 133* 140 K 4.3 3.9 CL 99 106 CO2 27 20 BUN 17 17 CREATININE 0.70 0.73 GLUCOSE 104* 288* CALCIUM 9.1 8.6 Coags: Recent Labs 01/20/22 1540 01/21/22457 PROT 8.3 -- INR -- 1.0 Lab Results Component Value Date SEDRATE 58 (H) 01/21/2022 Recent Labs 01/21/22457 CRP 51.6* Physical Exam: Vascular: DP and PT pulses are palpable. CFT brisk to all digits. Hair growth is present to the level of the digits. Mild nonpitting edema, posterior left ankle. Neuro: Saph/sural/SP/DP/plantar sensation diminished to light touch. Musculoskeletal: Muscle strength is adequate ROM, adequate strength to all lower extremity muscle groups. Gross deformity is absent. Compartments are soft and compressible. No pain with compression of posterior calf. Minimal pain elicited with passive and active ankle joint range of motion. Moderate tenderness with palpation to posterior aspect of ankle, left. Dermatologic: Partial thickness ulcer to level of dermis located at the posterior aspect of the left ankle measures approximately 0.3 cm x 0.2 cm x 0.2 cm. Base is fibrogranular. Minimal drainage noted with no associated mal odor. Erythema absent with out associated increase in warmth. Does not probe to bone, sinus track, or undermine. Crepitus and induration absent. There is suspected fluctuance in the area without clear apex of abscess. Imaging: XR CALCANEUS LEFT (MIN 2 VIEWS) Final Result 1. Soft tissue swelling along the heel of the left foot. No evidence of osteomyelitis. MRI ANKLE LEFT W WO CONTRAST (Results Pending) Cultures: None Assessment Tip Ansari is a 42 y.o. male with 1. Subacute osteomyelitis of calcaneus, left lower extremity 2. Possible subacute abscess of ankle, left lower extremity 3. History of IV drug abuse 4. Hepatitis C 5. 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 * Plan Patient examined and evaluated at bedside All treatment options discussed in detail with the patient Radiographs of the left foot reviewed and discussed in detail with patient. There is suspected subacute osteomyelitis of the posterior superior aspect of the calcaneal tuberosity. There are cortical erosions with decreased osseous density in this area in comparison with radiographs from 12/13/2021. There is also loss of Kager's triangle suspicious for abscess or effusion. MRI of left ankle ordered -pending Medicine as primary team for medical management ID following ? doxycycline, fluconazole Overall clinical presentation is unimpressive for acute septic arthritis of the left ankle. Patient likely has subacute osteomyelitis of the calcaneus and possible subacute abscess of the posterior ankle which require formal incision and drainage in the OR. Further recommendations to follow pending MRI results. Dressing applied to Left lower extremity: Mepilex Weightbearing as tolerated to Left lower extremity Discussed with Dr. Aissatou Garcia DPM Podiatric Medicine & Surgery 01/23/2022 at 10:16 AM Noted referral for Wound Ostomy nurse for left ankle wound. The Podiatry service is managing for acute osteomyelitis of this wound. Will defer to Podiatry and sign off. Please re-consult if needed. Thank you. Images from the original note were not included. [facility] Office: [phone] Mikie Rodriguez DO, Theo Lerma DO, Stuart Natarajan DO, Harpal Tran DO, Prashanth Sadler MD, Deana Raza MD, Florencia Canela MD, Tess Ford MD, Yuliana Saenz MD, Leodan Mak MD, Marimar Ren MD, Fabricio Syed DO, Kyle Broussard DO, Juan Driver MD, Sophia Agustin DO, Lyle Woods MD, Jodi Bain MD, Palomo Drummond MD, Johann Rodriguez DO, Radha Avila MD, Alberto Perez MD, Teresa Quintero CNP, Tika Hernandez MARINE EQUIPMENT SALES ENGINEER, Mary Meléndez, MARINE EQUIPMENT SALES ENGINEER, Cathleen Moran, HAIR BLENDER, Abdirahman Bella, MARINE EQUIPMENT SALES ENGINEER, Leslie Rao, MARINE EQUIPMENT SALES ENGINEER, Madalyn Julien, MARINE EQUIPMENT SALES ENGINEER, Ro Bernard, MARINE EQUIPMENT SALES ENGINEER, Carter Charles, PABLO, Mckayla Abraham PA-C, Eli Fu, DNP, Razia Figueroa, FÉLIX, Keri Walker, MARINE EQUIPMENT SALES ENGINEER, Sherrie Rea, MARINE EQUIPMENT SALES ENGINEER, Moon Waldrop, MARINE EQUIPMENT SALES ENGINEER, Ethel Soto, MARINE EQUIPMENT SALES ENGINEER, Jazzy Javier, MARINE EQUIPMENT SALES ENGINEER, Shelli Menon, MARINE EQUIPMENT SALES ENGINEER [facility] IN-PATIENT SERVICE [facility] Progress Note 01/23/2022 8:25 AM Name: Tip Ansari Acct: [id number] Room: Day: 3 Admit Date: 01/20/2022 10:23 PM PCP: No primary care provider on file. Code Status: Full Code Subjective: C/C: rigors Interval History Status: not changed. Pt seen and examined this morning. RN and authorities are at bedside. Patient reports that he feels well. Had a bowel movement this morning. Feeling improved. Last heroin use was on January 11 prior to incarceration. Brief History: Mr. Tip Ansari is a 42 year old gentleman who initially presented to [facility] ED from the local fdc after he developed acute onset chills and shaking. He noted a wound to his left foot as well. Onset was abrupt, as he felt well earlier in the day. Patient was previously at [facility] in December for MRSA bacteremia with tricuspid valve vegetation. He was discharged on dalbavancin weekly x2 weeks in the infusion center with planned follow up CT and echocardiogram. In addition he was found to have septic arthritis of the right knee and left wrist (also positive for MRSA). In addition patient was found to be stool occult blood positive and lateral multifocal scattered nodular opacities in lung with cavitation which was presumed to be septic emboli. The occult blood resolved itself after being placed on vancomycin and patient was discharged back to fdc CT imaging in the ER revealed no evidence for PE, but with scattered airspace opacities are present throughout the lungs bilaterally to a mild degree, overall improved from prior, possibly representing residual pneumonia. Podiatry and ID have evaluated the patient. He is growing nathaniel in his blood and is on IV diflucan. Review of Systems: Constitutional: negative for chills, fevers, sweats Respiratory: negative for cough, dyspnea on exertion, shortness of breath, wheezing Cardiovascular: negative for chest pain, chest pressure/discomfort, lower extremity edema, palpitations Gastrointestinal: negative for abdominal pain, constipation, diarrhea, nausea, vomiting Neurological: negative for dizziness, headache Medications: Allergies: Allergies Allergen Reactions Pcn [Penicillins] Anaphylaxis Vancomycin Other (See Comments) Fever and hives chest - despite very slow infusion Current Meds: Scheduled Meds: lidocaine PF 10 mL IntraDERmal Once fluconazole 400 mg IntraVENous Q24H doxycycline hyclate 100 mg Oral 2 times per day insulin lispro 0-6 Units SubCUTAneous TID WC insulin lispro 0-3 Units SubCUTAneous Nightly triamterene-hydroCHLOROthiazide 1 tablet Oral Daily sodium chloride flush 5-40 mL IntraVENous 2 times per day enoxaparin 40 mg SubCUTAneous Daily Continuous Infusions: dextrose sodium chloride PRN Meds: traZODone, glucose, dextrose, glucagon (rDNA), dextrose, melatonin, hydrOXYzine, sodium chloride flush, sodium chloride, potassium chloride OR potassium alternative oral replacement OR potassium chloride, magnesium sulfate, ondansetron OR ondansetron, polyethylene glycol, acetaminophen OR acetaminophen Data: Past Medical History: has a past medical history of Abscess, Chronic hepatitis C without hepatic coma (HCC), COPD (chronic obstructive pulmonary disease) (HCC), Depression, and Drug addiction (HCC). Social History: reports that he has quit smoking. He has never used smokeless tobacco. He reports current drug use. Drugs: Cocaine, Opiates , Marijuana ([place]), and Methamphetamines (Crystal Meth). He reports that he does not drink alcohol. Family History: Family History Problem Relation Age of Onset Cancer Mother skin No Known Problems Father Diabetes Maternal Grandmother Diabetes Maternal Grandfather Vitals: BP 118/88 Pulse 126 Temp 98.2 F (36.8 C) (Oral) Resp 18 Ht 6' (1.829 m) Wt 161 lb (73 kg) SpO2 97% BMI 21.84 kg/m Temp (24hrs), Av.8 F (37.1 C), Min:98.2 F (36.8 C), Max:99.8 F (37.7 C) Recent Labs 01/21/22 2146 01/22/22 0720 01/22/22 1238 01/22/22 1634 POCGLU 129* 104 179* 95 I/O (24Hr): Intake/Output Summary (Last 24 hours) at 01/23/2022 0825 Last data filed at 01/23/2022 0628 Gross per 24 hour Intake Output 2300 ml Net -2300 ml Labs: Hematology: Recent Labs 01/20/22 1540 01/20/22 1754 01/21/22 0458 WBC 10.6 -- -- RBC 4.03* -- -- HGB 11.1* -- -- HCT 35.3* -- -- MCV 87.6 -- -- MCH 27.5 -- -- MCHC 31.4 -- -- RDW 16.4* -- -- PLT 130* -- -- MPV 8.7 -- -- SEDRATE -- -- 58* CRP -- -- 51.6* INR -- -- 1.0 DDIMER -- 2.69* -- Chemistry: Recent Labs 01/20/22 1540 01/20/22 2317 01/21/22 0458 NA 133* -- 140 K 4.3 -- 3.9 CL 99 -- 106 CO2 27 -- 20 GLUCOSE 104* -- 288* BUN 17 -- 17 CREATININE 0.70 -- 0.73 ANIONGAP 7* -- 14 LABGLOM >60 -- >60 GFRAA >60 -- >60 CALCIUM 9.1 -- 8.6 PROBNP 93 -- -- TROPHS <6 -- -- LACTACIDWB -- 2.5* 3.3* Recent Labs 01/20/22 1540 01/21/22 1427 01/21/22 2146 01/22/22 0720 01/22/22 1238 01/22/22 1634 PROT 8.3 -- -- -- -- -- LABALBU 3.3* -- -- -- -- -- LABA1C -- 5.6 -- -- -- -- AST 18 -- -- -- -- -- ALT 21 -- -- -- -- -- ALKPHOS 113 -- -- -- -- -- BILITOT 0.55 -- -- -- -- -- POCGLU -- -- 129* 104 179* 95 ABG: Lab Results Component Value Date PHART 7.380 12/16/2020 [id number] 44.5 12/16/2020 PO2ART 94.4 12/16/2020 SUF4BLA 25.7 12/16/2020 NBEA NOT REPORTED 12/16/2020 PBEA 0.3 12/16/2020 [id number] 97.1 12/16/2020 FIO2 28 12/16/2020 Lab Results Component Value Date/Time SPECIAL RIGHT FOREARM 20ML 01/23/2022 12:11 AM SPECIAL RIGHT HAND 20ML 01/23/2022 12:11 AM Lab Results Component Value Date/Time CULTURE NO GROWTH <24 HRS 01/23/2022 12:11 AM CULTURE NO GROWTH <24 HRS 01/23/2022 12:11 AM Radiology: XR CALCANEUS LEFT (MIN 2 VIEWS) Result Date: 01/21/2022 1. Soft tissue swelling along the heel of the left foot. No evidence of osteomyelitis. XR CHEST PORTABLE Result Date: 01/20/2022 Diffuse interstitial opacities may represent mild edema or atypical infection. CT CHEST PULMONARY EMBOLISM W CONTRAST Result Date: 01/20/2022 No evidence of pulmonary embolism or acute thoracic aortic abnormality. Improving aeration. Scattered airspace opacities are present throughout the lungs bilaterally to a mild degree, overall improved from prior, possibly representing residual pneumonia. Physical Examination: General appearance: alert, cooperative and no distress, pleasant, sitting up in bed Mental Status: oriented to person, place and time and normal affect Lungs: clear to auscultation bilaterally, normal effort Heart: tachycardia with regular rhythm, no murmur Abdomen: soft, nontender, nondistended, normal bowel sounds, no masses, hepatomegaly, splenomegaly Extremities: no edema, redness, tenderness in the calves, left heel with wound (see images), pressure bandage present Skin: no gross lesions, rashes, induration Assessment: Hospital Problems Last Modified POA * (Principal) Sepsis due to Nathaniel species without acute organ dysfunction (HCC) 01/23/2022 Yes 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 Sepsis likely due to Nathaniel bacteremia - continue fluconazole. ID following 2. Presumed endocarditis - GIANFRANCO pending; cardiology consulted 3. AE to vancomycin - red man syndrome in [facility] ED 4. Left ankle soft tissue infection - r/o osteomyelitis. MRI pending. Podiatry following. 5. Heroin abuse - SW to assist. Patient will return to fdc at d/c if able. 6. History of Hepatitis C 7. Essential hypertension - continue Maxide 8. Labs today 9. PICC vs midline at ID's discretion FABRICIO SYED DO 01/23/2022 8:25 AM Images from the original note were not included. [facility] Office: [phone] Mikie Rodriguez DO, Theo Lerma DO, Stuart Natarajan DO, Harpal Tran DO, Prashanth Sadler MD, Deana Raza MD, Florencia Canela MD, Tess Ford MD, Yuliana Saenz MD, Leodan Mak MD, Marimar Ren MD, Fabricio Syed DO, Kyle Broussard DO, Juan Driver MD, Sophia Agustin DO, Lyle Woods MD, Jodi Bain MD, Palomo Drummond MD, Johann Rodriguez DO, Radha Avila MD, Alberto Perez MD, Teresa Quintero MARINE EQUIPMENT SALES ENGINEER, Tika Hernandez MARINE EQUIPMENT SALES ENGINEER, Mary Meléndez, MARINE EQUIPMENT SALES ENGINEER, Cathleen Moran, HAIR BLENDER, Abdirahman Bella, MARINE EQUIPMENT SALES ENGINEER, Leslie Rao MARINE EQUIPMENT SALES ENGINEER, Madalyn Julien, MARINE EQUIPMENT SALES ENGINEER, Ro Bernard, MARINE EQUIPMENT SALES ENGINEER, Carter Charles CNP, DONOVAN Hunter-Junior, Eli Fu, FÉLIX, Razia Figueroa DNP, Keri Walker, MARINE EQUIPMENT SALES ENGINEER, Sherrie Rea, MARINE EQUIPMENT SALES ENGINEER, Moon Waldrop MARINE EQUIPMENT SALES ENGINEER, Ethel Soto MARINE EQUIPMENT SALES ENGINEER, Jazzy Javier CNP, Shelli Menon MARINE EQUIPMENT SALES ENGINEER IN-PATIENT SERVICE [facility] Progress Note 01/22/2022 6:57 PM Name: Tip Ansari Acct: [id number] Room: IP Day: 2 Admit Date: 01/20/2022 10:23 PM PCP: No primary care provider on file. Code Status: Full Code Subjective: C/C: Sepsis Interval History Status: Ankle pain better controlled No further drainage from wound Patient still feels somewhat anxious Reporting diaphoresis at night Data Base Updates: Afebrile [id number] High Hemoglobin A1C5.6 Blood cultures remain negative Brief History: As documented in the medical record: Tip Ansari is a 42 y.o. Non- / non male who presents with No chief complaint on file and is admitted to the hospital for the management of Sepsis (HCC). Patient presents to [facility] emergency room from the local fdc after he developed abrupt onset of chills and shaking and noting a wound to his left foot. Patient states that he woke up today feeling normal and as he was watching TV he had a sudden onset of feeling cold which then extended into course shaking and shivering despite covering up with a blanket and drinking warm fluids. Patient was a previous hospital [facility] and was treated for MRSA bacteremia with cuspid valve vegetation. He was discharged on dalbavancin weekly x2 weeks in the infusion center. And needed follow-up with a CT and echocardiogram. In addition he was found to have septic arthritis of the right knee and left wrist also positive for MRSA. In addition patient was found to be stool occult blood positive and lateral multifocal scattered nodular opacities in lung with cavitation which was presumed to be septic emboli. CT CHEST PULMONARY EMBOLISM W CONTRAST No evidence of pulmonary embolism or acute thoracic aortic abnormality. Improving aeration. Scattered airspace opacities are present throughout the lungs bilaterally to a mild degree, overall improved from prior, possibly representing residual pneumonia. The patient reports that several weeks ago he developed a blister from a malfitting shoe The blister popped draining a rather purulent material Since that time he has had increasing pain and swelling about the ankle The intitial assessment and plan included: Hospital Problems Last Modified POA * (Principal) Sepsis (HCC) 01/20/2022 Yes Plan Patient status inpatient in the Progressive Unit/Step down Repeat lactic acid and continue to trend, check sed rate CRP 1. Obtain blood cultures 2. Obtain echocardiogram 3. Consultation to ID, patient came around midnight therefore infectious disease was not consulted already had antibiotics today 4. Monitor blood pressures 5. X-ray left heel and foot 6. GI prophylaxis with diet 7. DVT prophylaxis with Lovenox The patient acknowledges that he has relapsed with IV drug abuse He has been using heroin He is back in fdc for outstanding warrants and probation violations Past Medical History: has a past medical history of Abscess, Chronic hepatitis C without hepatic coma (HCC), COPD (chronic obstructive pulmonary disease) (HCC), Depression, and Drug addiction (HCC). Social History: reports that he has quit smoking. He has never used smokeless tobacco. He reports current drug use. Drugs: Cocaine, Opiates , Marijuana ([place]), and Methamphetamines (Crystal Meth). He reports that he does not drink alcohol. Family History: Family History Problem Relation Age of Onset Cancer Mother skin No Known Problems Father Diabetes Maternal Grandmother Diabetes Maternal Grandfather Review of Systems: Review of Systems Constitutional: Positive for activity change (Decreased), diaphoresis and fatigue. Respiratory: Negative for cough and shortness of breath. Cardiovascular: Negative for chest pain and palpitations. Gastrointestinal: Negative for abdominal pain, nausea and vomiting. Genitourinary: Negative for flank pain and hematuria. Musculoskeletal: Positive for arthralgias and myalgias. His ankle remains stiff and sore Psychiatric/Behavioral: Positive for sleep disturbance. The patient is nervous/anxious. Physical Examination: Vitals BP (!) 131/92 Pulse 117 Temp 98.8 F (37.1 C) Resp 25 Ht 6' (1.829 m) Wt 161 lb (73 kg) SpO2 96% BMI 21.84 kg/m Temp (24hrs), Av.2 F (37.3 C), Min:98.2 F (36.8 C), Max:100.5 F (38.1 C) Recent Labs 01/21/22 2146 01/22/22 0720 01/22/22 1238 01/22/22 1634 POCGLU 129* 104 179* 95 Physical Exam Vitals reviewed. Constitutional: General: He is not in acute distress. Appearance: He is not diaphoretic. HENT: Head: Normocephalic. Nose: Nose normal. Eyes: General: No scleral icterus. Conjunctiva/sclera: Conjunctivae normal. Neck: Trachea: No tracheal deviation. Cardiovascular: Rate and Rhythm: Regular rhythm. Tachycardia present. Pulmonary: Effort: Pulmonary effort is normal. No respiratory distress. Breath sounds: Normal breath sounds. No wheezing or rales. Comments: He has been tachypneic at times Chest: Chest wall: No tenderness. Abdominal: General: There is no distension. Palpations: Abdomen is soft. Tenderness: There is no abdominal tenderness. Musculoskeletal: General: Swelling and tenderness present. Cervical back: Neck supple. Comments: His ankles wrapped Swelling persists Skin: General: Skin is warm and dry. Neurological: Mental Status: He is alert. Medications: Allergies: Allergies Allergen Reactions Pcn [Penicillins] Anaphylaxis Vancomycin Other (See Comments) Fever and hives chest - despite very slow infusion Current Meds: Scheduled Meds: linezolid 600 mg Oral 2 times per day insulin lispro 0-6 Units SubCUTAneous TID WC insulin lispro 0-3 Units SubCUTAneous Nightly triamterene-hydroCHLOROthiazide 1 tablet Oral Daily sodium chloride flush 5-40 mL IntraVENous 2 times per day enoxaparin 40 mg SubCUTAneous Daily Continuous Infusions: dextrose sodium chloride PRN Meds: glucose, dextrose, glucagon (rDNA), dextrose, melatonin, hydrOXYzine, sodium chloride flush, sodium chloride, potassium chloride OR potassium alternative oral replacement OR potassium chloride, magnesium sulfate, ondansetron OR ondansetron, polyethylene glycol, acetaminophen OR acetaminophen Data: I/O (24Hr): Intake/Output Summary (Last 24 hours) at 01/22/2022 1857 Last data filed at 01/22/2022 1800 Gross per 24 hour Intake Output 1950 ml Net -1950 ml Labs: Hematology: Recent Labs 01/20/22 1540 01/20/22 1754 01/21/228 WBC 10.6 -- -- RBC 4.03* -- -- HGB 11.1* -- -- HCT 35.3* -- -- MCV 87.6 -- -- MCH 27.5 -- -- MCHC 31.4 -- -- RDW 16.4* -- -- PLT 130* -- -- MPV 8.7 -- -- SEDRATE -- -- 58* CRP -- -- 51.6* INR -- -- 1.0 DDIMER -- 2.69* -- Chemistry: Recent Labs 01/20/22 1540 01/20/22 2317 01/21/22 0458 NA 133* -- 140 K 4.3 -- 3.9 CL 99 -- 106 CO2 27 -- 20 GLUCOSE 104* -- 288* BUN 17 -- 17 CREATININE 0.70 -- 0.73 ANIONGAP 7* -- 14 LABGLOM >60 -- >60 GFRAA >60 -- >60 CALCIUM 9.1 -- 8.6 PROBNP 93 -- -- TROPHS <6 -- -- LACTACIDWB -- 2.5* 3.3* Recent Labs 01/20/22 1540 01/21/22 1427 01/21/22 2146 01/22/22 0720 01/22/22 1238 01/22/22 1634 PROT 8.3 -- -- -- -- -- LABALBU 3.3* -- -- -- -- -- LABA1C -- 5.6 -- -- -- -- AST 18 -- -- -- -- -- ALT 21 -- -- -- -- -- ALKPHOS 113 -- -- -- -- -- BILITOT 0.55 -- -- -- -- -- POCGLU -- -- 129* 104 179* 95 ABG: Lab Results Component Value Date PHART 7.380 12/16/2020 SHF4FZA 44.5 12/16/2020 PO2ART 94.4 12/16/2020 MUN2YXE 25.7 12/16/2020 NBEA NOT REPORTED 12/16/2020 PBEA 0.3 12/16/2020 A1QLQDCR 97.1 12/16/2020 FIO2 28 12/16/2020 Lab Results Component Value Date/Time SPECIAL 5ML UNK SITE 01/21/2022 05:09 AM SPECIAL UNKNOWN 01/21/2022 05:09 AM Lab Results Component Value Date/Time CULTURE NO GROWTH 1 DAY 01/21/2022 05:09 AM CULTURE NO GROWTH 1 DAY 01/21/2022 05:09 AM Radiology: XR CALCANEUS LEFT (MIN 2 VIEWS) Result Date: 01/21/2022 1. Soft tissue swelling along the heel of the left foot. No evidence of osteomyelitis. XR CHEST PORTABLE Result Date: 01/20/2022 Diffuse interstitial opacities may represent mild edema or atypical infection. CT CHEST PULMONARY EMBOLISM W CONTRAST Result Date: 01/20/2022 No evidence of pulmonary embolism or acute thoracic aortic abnormality. Improving aeration. Scattered airspace opacities are present throughout the lungs bilaterally to a mild degree, overall improved from prior, possibly representing residual pneumonia. 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 [facility] - Infectious diseases evaluation admission date 01/20/2022 reason for consultation: Sepsis Vanco allergy Impression : Current: Vancomycin reaction- Tachycardia fever red neck syndrome in [place] Pulmonary septic emboli, MRSA -cavitations improved, nodules not resolved Tricuspid valve endocarditis, MRSA Treated w 2 doses dalbavancin Left ankle soft tissue infection, rule out underlying tendinitis Hx of Anaphylaxis to penicillin questionable if he ever tried cephalosporines Hives and red neck S to vanco x 2 01/21 candidemia - [place] Elevated CRP 51 /procalcitonin 11 Admission sepsis with fever and chills Recent Pulmonary septic emboli with cavitary pneumonia-MRSA Tricuspid endocarditis with vegetation and MRSA septicemia MRSA infected left wrist, right knee, Suspected arthritis but culture negative, left ankle and right shoulder. [Shoulder was a joint that was back Heroin use, hepatitis C Other: Discussion / summary of stay / plan of care Recommendations Patient did have a red neck syndrome infection with fever in [place] and again here Label allergic to vanco Left ankle MRI looking for a septic joint or tendinitis BC nathaniel albicans x 1, explains elevated procal despite stable appearance Asking for GIANFRANCO Start fluconazole 01/22 Keep doxy for pulm nodules - to help resolve past MRSA septic pulm emboli Infection Control Recommendations [place] Precautions Contact Isolation Antimicrobial Stewardship Recommendations Simplification of therapy IV to oral conversion Coordination ofOutpatient Care: Estimated Length of IV antimicrobials: Patient will need Midline / picc Catheter Insertion: Patient will need SNF: Patient will need outpatient wound care: History of Present Illness: Initial history: Tip Ansari is a 42 y.o.-year-old male [facility] because of rigors and fever as well as the left foot wound that seems to have started suddenly in [facility] Recently seen 12/2021 by [facility] for MRSA bacteremia, right knee septic arthritis, left wrist septic arthritis, MRSA was on culture, he had a left ankle joint pain but cultures were negative, and the right shoulder pain but a dry tap tried twice at the time. He also has multifocal pulmonary opacities with cavitations on CT scan of the chest, suggestive of septic emboli, and a tricuspid valve vegetation. Patient was admitted 12/13 and discharged on 12/20 with plan of dalbavancin weekly X2 and then to follow more dalbavancin according to blood cultures and CT scan of the chest, and an ultimate plan to keep him on doxycycline p.o. as long as it takes for the resolution of her symptoms He was also supposed to follow as outpatient Refer to my note on 12/20/2021. After discharge patient decided to take a dose of drugs IV on 01/10, overdosed, by the time EMS and police arrived, the patient woke up on the stretcher. Due to a prior history, patient was incarcerated. Since he has been without drugs, and hoping to be off them for of Patient does have heroin use and hepatitis C, he is also severely allergic to penicillin It looks like he had also a vancomycin reaction, with infusion site redness as well as redness over the neck and face fever hotness tachycardia, most likely at head neck syndrome, with recovered within 10 to 15 minutes. On exam 01/21 he does have a swelling on the posterior aspect of the left heel, over the insertion of the Achilles tendons, with an open wound, he is unsure if this was rubbing on his shoe or white. Otherwise able to move his left ankle joint well. No cellulitis present, all the other joints that used to hurt him have recovered. He has no shortness of breath or cough and no fever. He is doing very well on room air and walking while Interval changes 01/22/2022 Patient Vitals for the past 8 hrs: BP Temp Temp src Pulse Resp SpO2 01/22/22 1632 (!) 131/92 98.8 F (37.1 C) 116 28 01/22/22 1630 (!) 131/92 120 28 97 % 01/22/22 1600 118 (!) 33 97 % 01/22/22 1500 119 (!) 33 98 % 01/22/22 1400 98.8 F (37.1 C) 126 25 96 % 01/22/22 1300 122 29 98 % 01/22/22 1235 (!) 135/99 98.2 F (36.8 C) Oral 118 28 100 % 01/22/22 1200 113 28 98 % 01/22/22 1100 120 30 98 % 01/22/22 1000 122/73 120 28 96 % C alb in one BC only Unclear significance mostly wo fever or sepsis Yet w hx of IVDU it soul be taken seriously Asking for GIANFRANCO Start fluconazole 01/22 Summary of relevant labs: Labs: WBC 10 CRP51.6 High CREATININE0.73 Lactic Acid, Whole Blood3.3 High Sed Rate58 High Zzwkferekwwyp03.47 High Micro: BC One f two, 01/21 C alb BC x 4 on 01/20 neg Imaging: Xray left foot 1. Soft tissue swelling along the heel of the left foot. No evidence of osteomyelitis. I have personally reviewed the past medical history, past surgical history, medications, social history, and family history, and I haveupdated the database accordingly. Allergies: Pcn [penicillins] Review of Systems: Review of Systems Constitutional: Negative for activity change and appetite change. HENT: Negative for congestion. Eyes: Negative for pain and itching. Respiratory: Negative for apnea. Cardiovascular: Negative for chest pain. Gastrointestinal: Negative for abdominal distention. Endocrine: Negative for polydipsia and polyuria. Genitourinary: Negative for dysuria. Musculoskeletal: Positive for arthralgias. Skin: Negative for color change. Allergic/Immunologic: Negative for food allergies. Neurological: Negative for dizziness. Hematological: Negative for adenopathy. Psychiatric/Behavioral: Negative for agitation. Physical Examination : Physical Exam Constitutional: Appearance: Normal appearance. He is not ill-appearing. HENT: Head: Normocephalic. Nose: Nose normal. Mouth/Throat: Mouth: Mucous membranes are moist. Eyes: General: No scleral icterus. Conjunctiva/sclera: Conjunctivae normal. Cardiovascular: Rate and Rhythm: Normal rate and regular rhythm. Heart sounds: Normal heart sounds. No murmur heard. Pulmonary: Effort: No respiratory distress. Breath sounds: No stridor. No wheezing. Abdominal: General: There is no distension. Palpations: There is no mass. Tenderness: There is no abdominal tenderness. Genitourinary: Comments: No ortiz Musculoskeletal: General: Tenderness present. No deformity. Cervical back: Neck supple. No rigidity or tenderness. Skin: Coloration: Skin is not jaundiced. Findings: No bruising. Neurological: General: No focal deficit present. Mental Status: He is alert. Cranial Nerves: No cranial nerve deficit. Psychiatric: Mood and Affect: Mood normal. Thought Content: Thought content normal. Past Medical History: Past Medical History: Diagnosis Date Abscess 2020 left arm + MRSA Chronic hepatitis C without hepatic coma (HCC) COPD (chronic obstructive pulmonary disease) (HCC) Depression Drug addiction (HCC) heroin Past Surgical History: Past Surgical History: Procedure Laterality Date ABSCESS DRAINAGE Left 2019 arm APPENDECTOMY FINGER SURGERY Right 5 th finger tendon repair TYMPANOSTOMY TUBE PLACEMENT Bilateral Medications: insulin lispro 0-6 Units SubCUTAneous TID WC insulin lispro 0-3 Units SubCUTAneous Nightly vancomycin 1,250 mg IntraVENous Q12H vancomycin (VANCOCIN) intermittent dosing (placeholder) Other RX Placeholder triamterene-hydroCHLOROthiazide 1 tablet Oral Daily sodium chloride flush 5-40 mL IntraVENous 2 times per day enoxaparin 40 mg SubCUTAneous Daily Social History: Social History Socioeconomic History Marital status: Single Spouse name: Not on file Number of children: Not on file Years of education: Not on file Highest education level: Not on file Occupational History Not on file Tobacco Use Smoking status: Former Smoker Smokeless tobacco: Never Used Substance and Sexual Activity Alcohol use: No Drug use: Yes Types: Cocaine, Opiates , Marijuana ([place]), Methamphetamines (Crystal Meth) Comment: quit heroin Nov Sexual activity: Not on file Other Topics Concern Not on file Social History Narrative Not on file Social Determinants of Health Financial Resource Strain: Difficulty of Paying Living Expenses: Not on file Food Insecurity: Worried About Running Out of Food in the Last Year: Not on file Ran Out of Food in the Last Year: Not on file Transportation Needs: Lack of Transportation (Medical): Not on file Lack of Transportation (Non-Medical): Not on file Physical Activity: Days of Exercise per Week: Not on file Minutes of Exercise per Session: Not on file Stress: Feeling of Stress : Not on file Social Connections: Frequency of Communication with Friends and Family: Not on file Frequency of Social Gatherings with Friends and Family: Not on file Attends Bahai Services: Not on file Active Member of Clubs or Organizations: Not on file Attends Club or Organization Meetings: Not on file Marital Status: Not on file Intimate Partner Violence: Fear of Current or Ex-Partner: Not on file Emotionally Abused: Not on file Physically Abused: Not on file Sexually Abused: Not on file Housing Stability: Unable to Pay for Housing in the Last Year: Not on file Number of Places Lived in the Last Year: Not on file Unstable Housing in the Last Year: Not on file Family History: Family History Problem Relation Age of Onset Cancer Mother skin No Known Problems Father Diabetes Maternal Grandmother Diabetes Maternal Grandfather Medical Decision Making: I have independently reviewed/ordered the following labs: CBC with Differential: Recent Labs 01/20/22 1540 WBC 10.6 HGB 11.1* HCT 35.3* PLT 130* LYMPHOPCT 6* MONOPCT 1* BMP: Recent Labs 01/20/22 1540 01/21/22 0458 NA 133* 140 K 4.3 3.9 CL 99 106 CO2 27 20 BUN 17 17 CREATININE 0.70 0.73 Hepatic Function Panel: Recent Labs 01/20/22 1540 PROT 8.3 LABALBU 3.3* BILITOT 0.55 ALKPHOS 113 ALT 21 AST 18 No results for input(s): RPR in the last 72 hours. No results for input(s): HIV in the last 72 hours. No results for input(s): BC in the last 72 hours. Lab Results Component Value Date CREATININE 0.73 01/21/2022 GLUCOSE 288 01/21/2022 Detailed results: Thank you for allowing us to participate in the care of this patient.Please call with questions. This note is created with the assistance of a speech recognition program. While intending to generate adocument that actually reflects the content of the visit, the document can still have some errors including those of syntax and sound a like substitutions which may escape proof reading. It such instances, actual meaningcan be extrapolated by contextual diversion. Marisol Andrea MD Office: [facility] / office [phone] Physical Therapy Facility/Department: [facility] 2 Daily Treatment Note NAME: Tip Ansari : 1980 Date of Service: 01/22/2022 Discharge Recommendations: Patient would benefit from continued therapy after discharge Assessment Assessment: Pt stated anxiety about seeing family and his medical problems, states he is afraid of dropping , Pt amb 150 ftx2 with RW( for pts reassurance) SBA and sherrif escort. Pt is deconditioned, educated about increasing mobility when able, increased HR due to pathology, 119-133 bpm, RN aware and stated he can amb as tolerated watching heart rate spikes. presents with decreased activity tolerance and inactivity with further medical management pending. Pt will continue to benefit from PT to teach self exercise to prevent decline with possible procedure pending Specific instructions for Next Treatment: Progress activity as indicated with possible procedure pending Decision Making: Medium Complexity Clinical Presentation: evolving PT Education: Goals;PT Role;Energy Conservation;Home Exercise Program REQUIRES PT FOLLOW UP: Yes Activity Tolerance Activity Tolerance: Patient limited by endurance;Other (tachycardic) Activity Tolerance: increase HR with minimal activity, note increased HR due to pathology, 119 start of amb, 122 post, 133 post final walk Patient Diagnosis(es): There were no encounter diagnoses. has a past medical history of Abscess, Chronic hepatitis C without hepatic coma (HCC), COPD (chronic obstructive pulmonary disease) (HCC), Depression, and Drug addiction (HCC). has a past surgical history that includes Appendectomy; Abscess Drainage (Left, 2020); Finger surgery (Right); and Tympanostomy tube placement (Bilateral). Restrictions Restrictions/Precautions Restrictions/Precautions: Fall Risk,General Precautions,Contact Precautions Subjective General Chart Reviewed: Yes Additional Pertinent Hx: infective endocarditis Response To Previous Treatment: Patient with no complaints from previous session. 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 General Comment Comments: Pt retired to bed supine, cuffed on r ankle, unable to pplace in chair dt not having a spot to applycuff Pain Screening Patient Currently in Pain: Denies Pain Assessment Pain Assessment: 0-10 (pt states tingly feeling down spine) Pain Level: 0 Vital Signs Patient Currently in Pain: Denies Orientation Orientation Overall Orientation Status: Within Normal Limits Cognition Cognition Overall Cognitive Status: WNL Objective Bed mobility Bridging: Independent Rolling to Left: Independent Rolling to Right: Independent Supine to Sit: Independent Sit to Supine: Independent Scooting: Independent Transfers Stand to sit: Stand by assistance Bed to Chair: Stand by assistance Comment: Cues to push off bed, and to hold stand , before moving, declines dizziness at this time Ambulation Ambulation?: Yes More Ambulation?: Yes Ambulation 1 Surface: level tile Device: Rolling Walker Assistance: Stand by assistance Quality of Gait: normal gait with no LOB, Distance: 150 ft x2 Comments: Pt allowed to amb in hallway, pt requested walker dt feeling worn out , 150 ft x2 with a 5 minute seated rest break and VS taken between trials, 121-133bpm, RN Aware Balance Posture: Good Sitting - Static: Good Sitting - Dynamic: Good Standing - Static: Good Standing - Dynamic: Good Comments: assessed with and without AD Exercises Core Strengthening: sat EOB 20mins, and additional 10 min Comments: Pt tachycardiac this visit , deferred ther ex, saved energy for ambulation in alves way Goals Short term goals Time Frame for Short term goals: 14 visits Short term goal 1: Pt to ambulate 100 ft with least AD as indicated Short term goal 2: Pt to be independent with HEP to prevent further strength decline as tolerated Patient Goals Patient goals : to gain strength prolinged periods in bed Plan Plan Times per week: 3x/wk Specific instructions for Next Treatment: Progress activity as indicated with possible procedure pending Current Treatment Recommendations: Strengthening,Endurance Training Safety Devices Type of devices: Call light within reach,Nurse notified (diane sanders at bedside) Restraints Initially in place: Yes Restraints: hand cuff on R ankle Therapy Time Individual Concurrent Group Co-treatment Time In 1500 Time Out 1554 Minutes 54 Timed Code Treatment Minutes: 54 Minutes Erin Rodrigues PTA Images from the original note were not included. Occupational Therapy [facility] Occupational Therapy Not Seen Note DATE: 01/22/2022 NAME: Tip Ansari : 1980 Patient not seen this date for Occupational Therapy due to: Patient independent with ADLs and functional tasks with no acute OT needs. Will defer OT evaluation at this time. Please reorder OT if future needs arise. Next Scheduled Treatment: N/A MRI screening check list completed and faxed to MRI. Comprehensive Nutrition Assessment Type and Reason for Visit: Initial,Positive Nutrition Screen (Weight Loss; Wound) Nutrition Recommendations/Plan: Continue current diet. Encourage/monitor PO intakes as tolerated. Monitor need for oral supplements. Will monitor labs, weights, and plan of care. Nutrition Assessment: Pt admitted with chills and for sepsis. PMH includes COPD, Hep C. Pt reports having an okay appetite. Ate some of his breakfast tray this morning. Pt also reports weight loss - per chart review, 6.5% weight loss x 1 month. Pt with an open blister to his left heel. Labs reviewed: Glucose 288 mg/dL. Meds reviewed. Malnutrition Assessment: Malnutrition Status: At risk for malnutrition Context: Acute Illness Findings of the 6 clinical characteristics of malnutrition: Energy Intake: Mild decrease in energy intake Weight Loss: 7 - Greater than 5% over 1 month Body Fat Loss: No significant body fat loss Muscle Mass Loss: No significant muscle mass loss Fluid Accumulation: No significant fluid accumulation Crown Perforator Operator Strength: Not Performed Estimated Daily Nutrient Needs: Energy (kcal): 25 kcal/kg = 1800 kcals/day; Weight Used for Energy Requirements: Current Protein (g): 1.2-1.5 gm/kg = 90-110 gm pro/day; Weight Used for Protein Requirements: Current Fluid (ml/day): 30 mL/kg = 2200 mL/day or per MD; Method Used for Fluid Requirements: ml/Kg Nutrition Related Findings: Labs/Meds reviewed. Wounds: (Open blister to left heel) Current Nutrition Therapies: ADULT DIET; Regular Anthropometric Measures: Height: 6' (182.9 cm) Current Body Weight: 161 lb (73 kg) Admission Body Weight: 161 lb (73 kg) Usual Body Weight: 172 lb 3.2 oz (78.1 kg) (12/13/21 bed scale per chart review) Pace Body Weight: 178 lbs; % Pace Body Weight 90.4 % BMI: 21.8 BMI Categories: Normal Weight (BMI 18.5-24.9) Nutrition Diagnosis: Increased nutrient needs related to (healing) as evidenced by (open blister to left heel) Nutrition Interventions: Food and/or Nutrient Delivery: Continue Current Diet (Monitor need for oral supplements.) Nutrition Education/Counseling: No recommendation at this time Coordination of Nutrition Care: Continue to monitor while inpatient Goals: Oral intakes to meet at least 75% of estimated nutriton needs. Nutrition Monitoring and Evaluation: Behavioral-Environmental Outcomes: None Identified Food/Nutrient Intake Outcomes: Food and Nutrient Intake Physical Signs/Symptoms Outcomes: Biochemical Data,GI Status,Fluid Status or Edema,Hemodynamic Status,Nutrition Focused Physical Findings,Skin,Weight Discharge Planning: Too soon to determine Contact: [phone] Physical Therapy Facility/Department: [facility] Initial Assessment NAME: Tip Ansari : 1980 Date of Service: 01/21/2022 No chief complaint on file. endocarditis Discharge Recommendations: TBD based on further medical course Assessment Assessment: Pt presents with decreased activity tolerance and inactivity with further medical management pending. Pt will continue to benefit from PT to teach self exercise to prevent decline with possible procedure pending Specific instructions for Next Treatment: Progress activity as indicated with possible procedure pending Decision Making: Medium Complexity Clinical Presentation: evolving REQUIRES PT FOLLOW UP: Yes Activity Tolerance Activity Tolerance: Patient limited by endurance;Other Activity Tolerance: increase HR with minimal activity Patient Diagnosis(es): There were no encounter diagnoses. has a past medical history of Abscess, Chronic hepatitis C without hepatic coma (HCC), COPD (chronic obstructive pulmonary disease) (HCC), Depression, and Drug addiction (HCC). has a past surgical history that includes Appendectomy; Abscess Drainage (Left, 2020); Finger surgery (Right); and Tympanostomy tube placement (Bilateral). Restrictions Restrictions/Precautions Restrictions/Precautions: Fall Risk,General Precautions,Contact Precautions (security in room with pt) Vision/Hearing Vision: Within Functional Limits Hearing: Within functional limits Subjective General Chart Reviewed: Yes Additional Pertinent Hx: infective endocarditis Response To Previous Treatment: Patient with no complaints from previous session. Family / Caregiver Present: Yes (diane sanders at bed side) Other (Comment): okay per RN to see Subjective Subjective: Pt awake and alert in agreement with PT evaluation Pain Screening Patient Currently in Pain: No Vital Signs Patient Currently in Pain: No Pre Treatment Pain Screening Intervention List: Patient able to continue with treatment Orientation Orientation Overall Orientation Status: Within Normal Limits Social/Functional History Social/Functional History Lives With: (Pt is an inmate, no home information provided) ADL Assistance: Independent Homemaking Assistance: Independent Homemaking Responsibilities: No Ambulation Assistance: Independent Transfer Assistance: Independent Active Tube Man: No Cognition Cognition Overall Cognitive Status: WNL Objective Observation/Palpation Posture: Good Observation: normal posture Scar: left foot with dressing in place AROM RLE (degrees) RLE AROM: WNL AROM LLE (degrees) LLE AROM : WNL AROM RUE (degrees) RUE AROM : WNL AROM LUE (degrees) LUE AROM : WNL Strength RLE Strength RLE: WFL Strength LLE Strength LLE: WFL Strength LUE Strength LUE: WFL Strength Other Other: general deconditioing Tone RLE RLE Tone: Normotonic Tone LLE LLE Tone: Normotonic Motor Control Gross Motor?: WNL Coordination Rapid Alternating Movements: Normal Finger to Nose: Normal Heel to Rausch: Normal Sensation Overall Sensation Status: WNL Bed mobility Bridging: Independent Rolling to Left: Independent Rolling to Right: Independent Supine to Sit: Independent Sit to Supine: Independent Scooting: Independent Transfers Sit to Stand: Stand by assistance Stand to sit: Stand by assistance Bed to Chair: Stand by assistance Ambulation Ambulation?: Yes More Ambulation?: No Ambulation 1 Surface: level tile Device: No Device Assistance: Stand by assistance Quality of Gait: normal gait with no LOB, note increased HR due to pathology with possible procedure pending Distance: 60ft with room Comments: distance limited to within the room due to brianf request as pt out of handcuffs Balance Posture: Good Sitting - Static: Good Sitting - Dynamic: Good Standing - Static: Good Standing - Dynamic: Good Functional Reach Test Fall Risk (Score of <10 inches is fall risk): No Plan Plan Times per week: 5-6 x/wk as indicated Specific instructions for Next Treatment: Progress activity as indicated with possible procedure pending Current Treatment Recommendations: Strengthening,Endurance Training Safety Devices Type of devices: Call light within reach,Nurse notified (diane sanders at bed side) AM-PAC Score AM-PAC Inpatient Mobility without Stair Climbing Raw Score : 20 (01/21/221537) AM-PAC Inpatient without Stair Climbing T-Scale Score : 60.57 (01/21/221537) Mobility Inpatient CMS 0-100% Score: 0 (01/21/221537) Mobility Inpatient without Stair CMS G-Code Modifier : CH (01/21/221537) Goals Short term goals Time Frame for Short term goals: 14 visits Short term goal 1: Pt to ambulate 100 ft with least AD as indicated Short term goal 2: Pt to be independent with HEP to prevent further strength decline as tolerated Patient Goals Patient goals : to gain strength prolinged periods in bed Therapy Time Individual Concurrent Group Co-treatment Time In 1403 Time Out 1430 Minutes 27 Timed Code Treatment Minutes: 13 Minutes Liz Rose PT [facility] Pharmacokinetic Monitoring Service - Vancomycin Tip Ansari is a 42 y.o. male starting on vancomycin therapy for Bone and Joint infection. Pharmacy consulted by Theo Lerma for monitoring and adjustment. Target Concentration: Goal AUC/BERENICE 400-600 mg*hr/L Additional Antimicrobials: none Pertinent Laboratory Values: Wt Readings from Last 1 Encounters: 01/20/22 161 lb (73 kg) Temp Readings from Last 1 Encounters: 01/21/22 97.8 F (36.6 C) (Oral) Estimated Creatinine Clearance: 139 mL/min (based on SCr of 0.73 mg/dL). Recent Labs 01/20/22 1540 01/21/22 0458 CREATININE 0.70 0.73 WBC 10.6 -- Pertinent Cultures: Culture Date Source Results 01/21 blood NGTD MRSA Nasal Swab: N/A. Non-respiratory infection. Plan: Dosing recommendations based on Bayesian software Patient received 1.5g loading dose yesterday. Will start vancomycin 1250mg q12h Anticipated AUC of 491 and trough concentration of 14.0 at steady state Renal labs as indicated Vancomycin concentration not currently ordered Pharmacy will continue to monitor patient and adjust therapy as indicated Thank you for the consult, Emily Lockhart RPH 01/21/2022 1:33 PM Images from the original note were not included. [facility] Office: [phone] Mikie Rodriguez DO, Theo Lerma DO, Stuart Natarajan DO, Harpal Tran DO, Prashanth Sadler MD, Deana Raza MD, Florencia Canela MD, Tess Ford MD, Yuliana Saenz MD, Leodan Mak MD, Marimar Ren MD, Fabricio Syed DO, Kyle Broussard DO, Juan Driver MD, Sophia Agustin DO, Lyle Woods MD, Jodi Bain MD, Palomo Drummond MD, Johann Rodriguez DO, Radha Avila MD, Alberto Perez MD, Teresa Quintero CNP, Tika Hernandez CNP, Mary Meléndez, PABLO, Cathleen Moran, CHANTALE, Abdirahman Bella, PABLO, Leslie Rao, PABLO, Madalyn Julien, PABLO, Ro Bernard, PABLO, Carter Charles, PABLO, Mckayla Abraham PA-C, Eli Fu, FÉLIX, Razia Figueroa, FÉLIX, Keri Walker, PALBO, Sherrie Rea, PABLO, Moon Waldrop, PABLO, Ethel Soto, PABLO, Jazzy Javier CNP, Shelli Menon CNP IN-PATIENT SERVICE [facility] Progress Note 01/21/2022 1:33 PM Name: Tip Ansari Acct: [id number] Room: IP Day: 1 Admit Date: 01/20/2022 10:23 PM PCP: No primary care provider on file. Code Status: Full Code Subjective: C/C: Sepsis Interval History Status: Not much change Still reporting ankle pain Not sleeping Feels anxious Data Base Updates: Patient has been afebrile [id number] High mg/dL OIY65ti/dL CREATININE0.73mg/dL Calcium8.6mg/dL Yeflcr059yxzz/L Potassium3.9 Lactic Acid, Whole Blood3.3 High Sed Rate58 High Ankle x-ray: Impression: 1. Soft tissue swelling along the heel of the left foot. No evidence of osteomyelitis. Blood cultures negative Specimen Source: Blood Specimen Description.BLOOD Special [id number] R WRIST CultureNO GROWTH 12 HOURS Brief History: As documented in the medical record: Tip Ansari is a 42 y.o. Non- / non male who presents with No chief complaint on file and is admitted to the hospital for the management of Sepsis (HCC). Patient presents to [facility] emergency room from the local fdc after he developed abrupt onset of chills and shaking and noting a wound to his left foot. Patient states that he woke up today feeling normal and as he was watching TV he had a sudden onset of feeling cold which then extended into course shaking and shivering despite covering up with a blanket and drinking warm fluids. Patient was a previous hospital [facility] and was treated for MRSA bacteremia with cuspid valve vegetation. He was discharged on dalbavancin weekly x2 weeks in the infusion center. And needed follow-up with a CT and echocardiogram. In addition he was found to have septic arthritis of the right knee and left wrist also positive for MRSA. In addition patient was found to be stool occult blood positive and lateral multifocal scattered nodular opacities in lung with cavitation which was presumed to be septic emboli. CT CHEST PULMONARY EMBOLISM W CONTRAST No evidence of pulmonary embolism or acute thoracic aortic abnormality. Improving aeration. Scattered airspace opacities are present throughout the lungs bilaterally to a mild degree, overall improved from prior, possibly representing residual pneumonia. The intitial assessment and plan included: Hospital Problems Last Modified POA * (Principal) Sepsis (HCC) 01/20/2022 Yes Plan Patient status inpatient in the Progressive Unit/Step down Repeat lactic acid and continue to trend, check sed rate CRP 1. Obtain blood cultures 2. Obtain echocardiogram 3. Consultation to ID, patient came around midnight therefore infectious disease was not consulted already had antibiotics today 4. Monitor blood pressures 5. X-ray left heel and foot 6. GI prophylaxis with diet 7. DVT prophylaxis with Lovenox The patient acknowledges that he has relapsed with IV drug abuse He has been using heroin He is back in fdc for outstanding warrants and probation violations Past Medical History: has a past medical history of Abscess, Chronic hepatitis C without hepatic coma (HCC), COPD (chronic obstructive pulmonary disease) (HCC), Depression, and Drug addiction (HCC). Social History: reports that he has quit smoking. He has never used smokeless tobacco. He reports current drug use. Drugs: Cocaine, Opiates , Marijuana ([place]), and Methamphetamines (Crystal Meth). He reports that he does not drink alcohol. Family History: Family History Problem Relation Age of Onset Cancer Mother skin No Known Problems Father Diabetes Maternal Grandmother Diabetes Maternal Grandfather Review of Systems: Review of Systems Constitutional: Positive for activity change (Decreased), diaphoresis and fatigue. Respiratory: Negative for cough and shortness of breath. Cardiovascular: Negative for chest pain and palpitations. Gastrointestinal: Negative for abdominal pain, nausea and vomiting. Genitourinary: Negative for flank pain and hematuria. Musculoskeletal: Positive for arthralgias and myalgias. His ankle remains stiff and sore Psychiatric/Behavioral: Positive for sleep disturbance. The patient is nervous/anxious. Physical Examination: Vitals BP 112/79 Pulse 114 Temp 97.8 F (36.6 C) (Oral) Resp 25 Ht 6' (1.829 m) Wt 161 lb (73 kg) SpO2 98% BMI 21.84 kg/m Temp (24hrs), Av.1 F (37.3 C), Min:97.8 F (36.6 C), Max:103.3 F (39.6 C) No results for input(s): POCGLU in the last 72 hours. Physical Exam Vitals reviewed. Constitutional: General: He is not in acute distress. Appearance: He is not diaphoretic. HENT: Head: Normocephalic. Nose: Nose normal. Eyes: General: No scleral icterus. Conjunctiva/sclera: Conjunctivae normal. Neck: Trachea: No tracheal deviation. Cardiovascular: Rate and Rhythm: Regular rhythm. Tachycardia present. Pulmonary: Effort: Pulmonary effort is normal. No respiratory distress. Breath sounds: Normal breath sounds. No wheezing or rales. Comments: He has been tachypneic at times Chest: Chest wall: No tenderness. Abdominal: General: There is no distension. Palpations: Abdomen is soft. Tenderness: There is no abdominal tenderness. Musculoskeletal: General: Swelling and tenderness present. Cervical back: Neck supple. Comments: His ankles wrapped Swelling persists Skin: General: Skin is warm and dry. Neurological: Mental Status: He is alert. Medications: Allergies: Allergies Allergen Reactions Pcn [Penicillins] Anaphylaxis Current Meds: Scheduled Meds: insulin lispro 0-6 Units SubCUTAneous TID WC insulin lispro 0-3 Units SubCUTAneous Nightly vancomycin (VANCOCIN) intermittent dosing (placeholder) Other RX Placeholder triamterene-hydroCHLOROthiazide 1 tablet Oral Daily sodium chloride flush 5-40 mL IntraVENous 2 times per day enoxaparin 40 mg SubCUTAneous Daily Continuous Infusions: dextrose sodium chloride PRN Meds: glucose, dextrose, glucagon (rDNA), dextrose, hydrOXYzine, sodium chloride flush, sodium chloride, potassium chloride OR potassium alternative oral replacement OR potassium chloride, magnesium sulfate, ondansetron OR ondansetron, polyethylene glycol, acetaminophen OR acetaminophen Data: I/O (24Hr): Intake/Output Summary (Last 24 hours) at 01/21/2022 1333 Last data filed at 01/21/2022 0105 Gross per 24 hour Intake Output 700 ml Net -700 ml Labs: Hematology: Recent Labs 01/20/22 1540 01/20/22 1754 01/21/22 0458 WBC 10.6 -- -- RBC 4.03* -- -- HGB 11.1* -- -- HCT 35.3* -- -- MCV 87.6 -- -- MCH 27.5 -- -- MCHC 31.4 -- -- RDW 16.4* -- -- PLT 130* -- -- MPV 8.7 -- -- SEDRATE -- -- 58* CRP -- -- 51.6* INR -- -- 1.0 DDIMER -- 2.69* -- Chemistry: Recent Labs 01/20/22 1540 01/20/22 2317 01/21/22 0458 NA 133* -- 140 K 4.3 -- 3.9 CL 99 -- 106 CO2 27 -- 20 GLUCOSE 104* -- 288* BUN 17 -- 17 CREATININE 0.70 -- 0.73 ANIONGAP 7* -- 14 LABGLOM >60 -- >60 GFRAA >60 -- >60 CALCIUM 9.1 -- 8.6 PROBNP 93 -- -- TROPHS <6 -- -- LACTACIDWB -- 2.5* 3.3* Recent Labs 01/20/22 1540 PROT 8.3 LABALBU 3.3* AST 18 ALT 21 ALKPHOS 113 BILITOT 0.55 ABG: Lab Results Component Value Date PHART 7.380 12/16/2020 [id number] 44.5 12/16/2020 PO2ART 94.4 12/16/2020 DEH0FRR 25.7 12/16/2020 NBEA NOT REPORTED 12/16/2020 PBEA 0.3 12/16/2020 [id number] 97.1 12/16/2020 FIO2 28 12/16/2020 Lab Results Component Value Date/Time SPECIAL 5ML UNK SITE 01/21/2022 05:09 AM SPECIAL UNKNOWN 01/21/2022 05:09 AM Lab Results Component Value Date/Time CULTURE NO GROWTH <24 HRS 01/21/2022 05:09 AM CULTURE NO GROWTH <24 HRS 01/21/2022 05:09 AM Radiology: XR CALCANEUS LEFT (MIN 2 VIEWS) Result Date: 01/21/2022 1. Soft tissue swelling along the heel of the left foot. No evidence of osteomyelitis. XR CHEST PORTABLE Result Date: 01/20/2022 Diffuse interstitial opacities may represent mild edema or atypical infection. CT CHEST PULMONARY EMBOLISM W CONTRAST Result Date: 01/20/2022 No evidence of pulmonary embolism or acute thoracic aortic abnormality. Improving aeration. Scattered airspace opacities are present throughout the lungs bilaterally to a mild degree, overall improved from prior, possibly representing residual pneumonia. 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.61] 12/16/2021 Hepatitis C virus infection without hepatic coma [B19.20] 01/28/2021 Heroin abuse (HCC) [F11.10] 01/28/2021 Plan: Antibiotics per Infectious Disease service Rule out septic arthritis left ankle Pain management Follow-up blood cultures in progress Detox Social service consult DVT prophylaxis IP CONSULT TO INFECTIOUS DISEASES PHARMACY TO DOSE VANCOMYCIN CHEMICAL DEPENDENCY REFERRAL FOR SOCIAL SERVICE CONSULT Theo Lerma DO 01/21/2022 1:33 PM documented in this encounter [employer] Phone: 01-30-2022 Hospital Discharge instructions Kyle Broussard DO - 01/30/2022 1:44 PM EDT Continuity of Care Form Patient Name: Tip Ansari : 1980 Admit date: 01/20/2022 Discharge date: Code Status Order: Full Code Advance Directives: Admitting Physician: Fabricio Syed DO PCP: No primary care provider on file. Discharging Nurse: Discharging Hospital Unit/Room#: Discharging Unit Phone Number: Emergency Contact: Extended Emergency Contact Information Primary Emergency Contact: Alisa Ansari Address: [place] [id number] Relation: Parent Secondary Emergency Contact: jaida greenberg Mobile Relation: Aunt/Uncle Past Surgical History: Past Surgical History: Procedure Laterality Date ABSCESS DRAINAGE Left 2019 arm APPENDECTOMY FINGER SURGERY Right 5 th finger tendon repair FOOT DEBRIDEMENT Left 01/26/2022 INCISION AND DRAINAGE, BONE LEFT CALCANEOUS performed by Tip Grewal DPM at [facility] OR FOOT SURGERY Left 01/26/2022 INCISION AND DRAINAGE, BONE LEFT CALCANEOUS (Left Foot) PICC INSERTION VASCULAR ACCESS TEAM 01/25/2022 TYMPANOSTOMY TUBE PLACEMENT Bilateral Immunization History: There is no immunization history on file for this patient. Active Problems: Patient Active Problem List Diagnosis Code Septic embolism ([facility]) I76 Heroin abuse ([facility]) F11.10 Hepatitis C virus infection without hepatic coma B19.20 MRSA bacteremia R78.81, B95.62 Acute respiratory failure with hypoxia ([facility]) J96.01 Moderate protein-calorie malnutrition ([facility]) E44.0 Bloody diarrhea R19.7 Anemia D64.9 Hypokalemia E87.6 Right-sided endocarditis due to Staphylococcus aureus I33.0, 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[facility]) M00.061 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 Moderate tricuspid regurgitation I07.1 Hyperkalemia E87.5 Endocarditis I38 Sepsis ([facility]) A41.9 Staphylococcal arthritis of left ankle ([facility]) M00.072 Hyperglycemia R73.9 Sepsis due to Nathaniel species without acute organ dysfunction ([facility]) B37.7, R65.20 Sinus tachycardia R00.0 Septic bursitis of Achilles M71.10 Acute osteomyelitis of left calcaneus ([facility]) M86.172 Opiate withdrawal ([facility]) F11.23 Acute hematogenous osteomyelitis of left ankle ([facility]) M86.072 Isolation/Infection: Isolation Contact Patient Infection Status Infection Onset Added Last Indicated Last Indicated By Review Planned Expiration Resolved Resolved By MRSA 12/13/21 12/15/21 12/16/21 Culture, Anaerobic and Aerobic Blood & Joint Fluid 12/2021 Resolved COVID-19 (Rule Out) 01/24/22 01/24/22 01/24/22 COVID-19, Rapid (Ordered) 01/24/22 Rule-Out Test Resulted COVID-19 (Rule Out) 01/20/22 01/20/22 01/20/22 COVID-19, Rapid (Ordered) 01/20/22 Rule-Out Test Resulted COVID-19 12/16/20 12/17/21 12/17/21 Palomo Barone RN 12/18/21 Elvia Lowry RN COVID-19 (Rule Out) 12/15/21 12/15/21 12/15/21 COVID-19, Rapid (Ordered) 12/17/21 aPlomo Barone RN COVID-19 12/16/20 12/16/20 12/16/20 COVID-19, PCR 12/30/20 COVID-19 (Rule Out) 12/16/20 12/16/20 12/16/20 COVID-19, PCR (Ordered) 12/16/20 Rule-Out Test Resulted Nurse Assessment: Last Vital Signs: BP (!) 142/94 Pulse 100 Temp 98.2 F (36.8 C) (Oral) Resp 21 Ht 6' (1.829 m) Wt 174 lb 9.7 oz (79.2 kg) SpO2 94% BMI 23.68 kg/m Last documented pain score (0-10 scale): Pain Level: 0 Last Weight: Wt Readings from Last 1 Encounters: 01/29/22 174 lb 9.7 oz (79.2 kg) Mental Status: {IP PT MENTAL STATUS:64485} IV Access: { CARLINE IV ACCESS:001454349} Nursing Mobility/ADLs: Walking {CHP DME ADLs:067925524} Transfer {CHP DME ADLs:248469679} Bathing {CHP DME ADLs:827887148} Dressing {CHP DME ADLs:222415494} Toileting {CHP DME ADLs:841177871} Feeding {CHP DME ADLs:487952429} Boat Rental Clerk {CHP DME ADLs:444898189} Med Delivery { CARLINE MED Delivery:286308229} Wound Care Documentation and Therapy: Wound 01/20/22 Ankle Left;Posterior (Active) Dressing Status Clean;Dry;Intact 01/30/22 1130 Wound Cleansed Not Cleansed 01/27/22 1645 Dressing/Treatment Alireza wrap 01/30/22 1130 Dressing Change Due 01/26/22 01/26/22 0400 Wound Assessment Other (Comment) 01/30/22 1130 Drainage Amount None 01/30/22 1130 Drainage Description Yellow 01/26/22 0400 Odor None 01/30/22 1130 Jazz-wound Assessment Other (Comment) 01/30/22 1130 Margins Other (Comment) 01/29/221999 Number of days: 9 Elimination: Continence: Bowel: {YES / NO:} Bladder: {YES / NO:} Urinary Catheter: {Urinary Catheter:010074894} Colostomy/Ileostomy/Ileal Conduit: {YES / NO:} Date of Last BM: Intake/Output Summary (Last 24 hours) at 01/30/2022 1344 Last data filed at 01/30/2022 1020 Gross per 24 hour Intake 540 ml Output 3480 ml Net -2940 ml I/O last 3 completed shifts: In: 2897 [P.O.:1620; I.V.:927; IV Piggyback:350] Out: 4475 [Urine:4475] Safety Concerns: { CARLINE Safety Concerns:255895856} Impairments/Disabilities: { CARLINE Impairments/Disabilities:68202559 3} Nutrition Therapy: Current Nutrition Therapy: { CARLINE Diet List:278253131} Routes of Feeding: {CHP DME Other Feedings:825763702} Liquids: {Contracts Intern liquid thickness:93586} Daily Fluid Restriction: {CHP DME Yes amt example:926301994} Last Modified Barium Swallow with Video (Video Swallowing Test): {Done Not Done Date:} Treatments at the Time of Hospital Discharge: Respiratory Treatments: Oxygen Therapy: {Therapy; copd oxygen:23479} Ventilator: { CC Vent List:807915736} Rehab Therapies: {THERAPEUTIC INTERVENTION:6136636804} Weight Bearing Status/Restrictions: {[facility] Weight Bearin} Other Medical Equipment (for information only, NOT a DME order): {EQUIPMENT:664899107} Other Treatments: Patient's personal belongings (please select all that are sent with patient): {CHP DME Belongings:046210390} RN SIGNATURE: {Esignature:083869391} CASE MANAGEMENT/SOCIAL WORK SECTION Inpatient Status Date: Readmission Risk Assessment Score: Readmission Risk Risk of Unplanned Readmission: 22 Discharging to Facility/ Agency Name: Address: Phone: Fax: Dialysis Facility (if applicable) Name: Address: Dialysis Schedule: Phone: Fax: Centrifuge Separator Tender/Agriculture Instructor signature: {Esignature:985861307} PHYSICIAN SECTION Prognosis: Good Condition at Discharge: Stable Rehab Potential (if transferring to Rehab): Good Recommended Labs or Other Treatments After Discharge: Follow-up with cardiothoracic surgery and podiatry outpatient. See PCP outpatient. Follow-up with infectious disease outpatient Physician Certification: I certify the above information and transfer of Tip Ansari is necessary for the continuing treatment of the diagnosis listed and that he requires Home Care for greater 30 days. Update Admission H&P: No change in H&P PHYSICIAN SIGNATURE: Tom White DPM - 01/26/2022 Images from the original note were not included. Podiatric Post Operative Instructions: You have had a surgical procedure on your left foot. Fluids and Diet: Begin with clear liquids, broth, dry toast, and crackers. If not nauseated then resume your regular pre-operative diet when you are ready Medications: Take your prescriptions as directed If your pain is not severe then you may take the non-prescription medication that you normally take for aches and pains You may resume your regularly scheduled medications (unless otherwise directed) If any side effects or adverse reactions occur, discontinue the medication and contact your doctor. Review the patient drug information that is provided before you take any medication Ambulation and Activity: You are advised to go directly home from the hospital Use crutches as needed You may put weight on the operated foot. You should wear the surgical boot whenever walking Avoid stairs if possible. Do not lift or move heavy objects Do not drive until cleared by your physician Bandage and Wound Care Instructions: Keep bandage clean and dry Do not shower or bathe the operative extremity Do not remove the bandage (unless otherwise directed) Do not attempt to put anything between the cast or dressing and your skin, some itching is normal. Ice and Elevation: Elevate operative extremity as much as possible to reduce swelling and discomfort. Elevate with 2 pillows at or above the level of the heart for the first 72 hours. Ice: Apply Hospital dispensed insulated ice bag over the bandage 20 minutes of every hour while awake for the first 72 hours. You may ice behind the knee as well. Special Instructions: Call your doctor immediately if you develop any of the following. Fever over 100.4 degrees Fahrenheit by mouth - take your temperature daily until your first follow up visit. Pain not relieved by medication ordered Swelling, increased redness, warmth, or hardness around operative area. Numb, tingling or cold toes. Toe(s) become white or bluish Bandage becomes wet, soiled, or blood soaked (small amount of bleeding may be normal) Increased or progressive drainage from surgical area. Follow up instructions: You will need to follow up with Dr. Fabricio Syed DO. Call when you get home to schedule or confirm your appointment. Call your Water Mangle Tender office if you have any questions or concerns. documented in this encounter [facility] Phone: 01-10-2022 Hospital Discharge instructions Jessica Barrow MD - 01/10/2022 Discussed results with patient. He has no intention of hurting self. We discussed patient going to drug rehab. Patient has no primary care thus was referred to Dr. More. Patient is also continue going to [facility] for his vancomycin injection weekly. documented in this encounter [facility] Phone: 12-20-2021 History of Present illness Narrative Patient to IR for right shoulder aspirate. JR DONOVAN and LYLY/HANH RTs at bedside. Site prepped and draped, area numbed with lidocaine. Access obtained and scant amount red fluid obtained by lavage. Specimen to be sent to lab by literary writer. Access removed and band aid placed to site. Patient tolerated well and taken to IR holding area awaiting transport. Images from the original note were not included. [facility] [facility] - Infectious diseases evaluation admission date 12/13/2021 reason for consultation: Septic pulmonary emboli Impression : Current: Pulmonary septic emboli with cavitary pneumonia MRSA septicemia and TV endocarditis MRSA infected left wrist R knee joint Left ankle joint pain - cx neg R shoulder pain dry tap Heroin use Chronic hepC Allergy severe to PNC Discussion / summary of stay / plan of care Recommendations Continue Vanco for MRSA TV endocarditis w septic pulm emboli and joint infections GIANFRANCO 12/18 TV dense vegetations MRSA Septic joint fluid R knee and left wrist- Aspirated + and tenderness resolved Left ankle aspirate is neg R shoulder tap dry x 2 IR guided aspiration under fluoro scopy for continued concern of infection So far BC neg since 12/17 Improving CRP 56-> 45.9 anticipate 6 weeks iv Ab at [place] Due to ongoing drug use, dalbavancin weekly x 2, then will need to repeat, vs FU w po doxy FU outpt Need 2 BC in [address] chest in a month Infection Control Recommendations [place] Precautions Contact Isolation Antimicrobial Stewardship Recommendations Simplification of therapy Targeted therapy PK dosing Coordination ofOutpatient Care: Estimated Length of IV antimicrobials: Patient will need Midline / picc Catheter Insertion: Patient will need SNF: Patient will need outpatient wound care: History of Present Illness: Initial history: Tip Ansari is a 41 y.o.-year-old male sent from another hospital because of pulmonary septic emboli, he is a heroin user Went to [place] with shortness of breath and fever, hypoxic started on oxygen. And blood in stools w abd pain. CT 12/11 shows multifocal nodular cavitary lesions likely septic emboli 2D echo 12/12 no clear vegetation Vancomycin started on 12/11 It seems that he had collapsed on 12/04 with a needle in his arm, since then he has had an ankle pain He also has had a left hand swelling with redness, he claims it was from a lab draw. bloody diarrhea and abd pain ultimately Resolved after AB Currently abd non tender L slightly edematous and slightly tender to touch but not red, possibly sprain Interval changes 12/20/2021 Patient Vitals for the past 8 hrs: BP Temp Temp src Pulse Resp SpO2 12/20/21 0732 112/82 98.8 F (37.1 C) Oral 107 16 96 % 12/20/21 0522 113/70 98 F (36.7 C) Temporal 105 18 95 % 12/15 Walking comfortable ambulating without any lower back pain management pain Left hand dorsum area remains red tender swollen, patient claims it was only after blood was removed Denies there was an injection of drugs in that area Blood cultures MRSA 12/16 Afebrile, VS stable. On vancomycin for MRSA septicemia. BC + on 12/16. C/o persistent pain of the joints. 12/17 Afebrile, VS stable, tachycardic. Comfortable on room air RR 16 02 sat 95 Joints less tender after aspiration by Ortho on 12-16-21 Rt knee aspiration with MRSA Lt ankle and wrist: No growth 12/18 Afebrile, hemodynamically stable, in sinus tachycardia. C/o persistent pain in the joints, left wrist and right knee more than right shoulder and left ankle. He also has had disturbed sleep overnight. He is tolerating oral diet. Aspirate from right knee positive for MRSA. Aspirates from left ankle with no growth to date, left wrist fluid is growing S. Aureus. GIANFRANCO + TV vegetations Will repeat blood culture today and tomorrow. No CBC available to compare. 12/19 Afebrile, Vitals stable, tachycardic, started on low dose beta yasmani. He feels better overall. He is working with PT/OT. He underwent a DRY right shoulder joint aspiration, no fluid was obtained. If he continued to have limited range of motion and pain, Ortho recommended IR guided aspiration under fluoroscopy. Improving leukocytosis and inflammatory markers. Will consult CT surgery since he had tricuspid valve endocarditis 29 CTS hping for outpt FU and decide for possible \TV sx after 6 weeks AB are over Pt caught snorting a powder DC difficult ue to on going dug use BC neg since 12/17 R shoulder dry tap by ortho 12/19 Asking IR to try to aspirate due to ongoing pain in the right shoulder On vanco tolerating and labs reviewed Summary of relevant labs: Labs: WBC 9.1 9.2-->6.2 Platelets 112-->188 BUN 9->10-> 11 Cr 0.52->0.38-> 0.72 Micro: Blood culture + through 12/17 - 12/18 - 12/19 shows no growth so far. Imaging: CXR 12/19 Scattered pulmonary infiltrates seen with right-sided PICC line. C T scan [facility] 12/11 suggestive of multifocal septic emboli with cavitation I have personally reviewed the past medical history, past surgical history, medications, social history, and family history, and I haveupdated the database accordingly. Allergies: Pcn [penicillins] Review of Systems: Review of Systems Constitutional: Negative for activity change, chills and diaphoresis. HENT: Negative for congestion. Eyes: Negative for pain, discharge and itching. Respiratory: Negative for apnea. Cardiovascular: Negative for chest pain. Gastrointestinal: Negative for abdominal distention and abdominal pain. Endocrine: Negative for cold intolerance, heat intolerance and polydipsia. Genitourinary: Negative for dysuria. Musculoskeletal: Positive for arthralgias. Skin: Negative for color change. Allergic/Immunologic: Negative for immunocompromised state. Neurological: Negative for dizziness, light-headedness and headaches. Hematological: Negative for adenopathy. Psychiatric/Behavioral: Negative for agitation. Physical Examination : Physical Exam Constitutional: Appearance: Normal appearance. He is not ill-appearing. HENT: Head: Normocephalic and atraumatic. Nose: Nose normal. Mouth/Throat: Mouth: Mucous membranes are moist. Eyes: General: No scleral icterus. Conjunctiva/sclera: Conjunctivae normal. Cardiovascular: Rate and Rhythm: Normal rate and regular rhythm. Heart sounds: Normal heart sounds. No friction rub. Pulmonary: Breath sounds: Normal breath sounds. No stridor. Abdominal: General: There is no distension. Palpations: Abdomen is soft. There is no mass. Genitourinary: Comments: No ortiz Musculoskeletal: General: No swelling, tenderness, deformity or signs of injury. Cervical back: Neck supple. No rigidity. Right lower leg: No edema. Left lower leg: No edema. Comments: Left hand dorsum pink sore - Left ankle edema and slightly tender Skin: General: Skin is dry. Coloration: Skin is not jaundiced or pale. Findings: No erythema. Neurological: General: No focal deficit present. Mental Status: He is alert and oriented to person, place, and time. Cranial Nerves: No cranial nerve deficit. Psychiatric: Mood and Affect: Mood normal. Thought Content: Thought content normal. Past Medical History: Past Medical History: Diagnosis Date Abscess 2020 left arm + MRSA Chronic hepatitis C without hepatic coma (HCC) COPD (chronic obstructive pulmonary disease) (HCC) Depression Drug addiction (HCC) heroin Past Surgical History: Past Surgical History: Procedure Laterality Date ABSCESS DRAINAGE Left 2019 arm APPENDECTOMY FINGER SURGERY Right 5 th finger tendon repair TYMPANOSTOMY TUBE PLACEMENT Bilateral Medications: [START ON 12/21/2021] vancomycin 1,250 mg IntraVENous Q12H metoprolol tartrate 12.5 mg Oral BID sodium chloride 1 g Oral TID vancomycin (VANCOCIN) intermittent dosing (placeholder) Other RX Placeholder potassium chloride 40 mEq Oral Once sodium chloride flush 5-40 mL IntraVENous 2 times per day enoxaparin 40 mg SubCUTAneous Daily Social History: Social History Socioeconomic History Marital status: Single Spouse name: Not on file Number of children: Not on file Years of education: Not on file Highest education level: Not on file Occupational History Not on file Tobacco Use Smoking status: Former Smoker Smokeless tobacco: Never Used Substance and Sexual Activity Alcohol use: No Drug use: Yes Types: Cocaine, Opiates , Marijuana ([place]), Methamphetamines (Crystal Meth) Comment: quit heroin Nov Sexual activity: Not on file Other Topics Concern Not on file Social History Narrative Not on file Social Determinants of Health Financial Resource Strain: Difficulty of Paying Living Expenses: Not on file Food Insecurity: Worried About Running Out of Food in the Last Year: Not on file Ran Out of Food in the Last Year: Not on file Transportation Needs: Lack of Transportation (Medical): Not on file Lack of Transportation (Non-Medical): Not on file Physical Activity: Days of Exercise per Week: Not on file Minutes of Exercise per Session: Not on file Stress: Feeling of Stress : Not on file Social Connections: Frequency of Communication with Friends and Family: Not on file Frequency of Social Gatherings with Friends and Family: Not on file Attends Bahai Services: Not on file Active Member of Clubs or Organizations: Not on file Attends Club or Organization Meetings: Not on file Marital Status: Not on file Intimate Partner Violence: Fear of Current or Ex-Partner: Not on file Emotionally Abused: Not on file Physically Abused: Not on file Sexually Abused: Not on file Housing Stability: Unable to Pay for Housing in the Last Year: Not on file Number of Places Lived in the Last Year: Not on file Unstable Housing in the Last Year: Not on file Family History: Family History Problem Relation Age of Onset Cancer Mother skin No Known Problems Father Diabetes Maternal Grandmother Diabetes Maternal Grandfather Medical Decision Making: I have independently reviewed/ordered the following labs: CBC with Differential: No results for input(s): WBC, HGB, HCT, PLT, SEGSPCT, BANDSPCT, LYMPHOPCT, MONOPCT, EOSPCT in the last 72 hours. BMP: Recent Labs 12/19/21 0543 12/19/21 0543 12/19/21 1444 12/20/21 0412 NA 132* -- -- 130* K 5.4* < > 4.3 4.6 CL 101 -- -- 99 CO2 22 -- -- 23 BUN 11 -- -- 15 CREATININE 0.72 -- -- 0.82 < > = values in this interval not displayed. Hepatic Function Panel: No results for input(s): PROT, LABALBU, BILIDIR, IBILI, BILITOT, ALKPHOS, ALT, AST in the last 72 hours. No results for input(s): RPR in the last 72 hours. No results for input(s): HIV in the last 72 hours. No results for input(s): BC in the last 72 hours. Lab Results Component Value Date CREATININE 0.82 12/20/2021 GLUCOSE 110 12/20/2021 Detailed results: Thank you for allowing us to participate in the care of this patient.Please call with questions. This note is created with the assistance of a speech recognition program. While intending to generate adocument that actually reflects the content of the visit, the document can still have some errors including those of syntax and sound a like substitutions which may escape proof reading. It such instances, actual meaningcan be extrapolated by contextual diversion. Marisol Andrea, Infectious Diseases Images from the original note were not included. Physical Therapy Physical Therapy Cancel Note DATE: 12/20/2021 NAME: Tip Ansari : 1980 Patient not seen this date for Physical Therapy due to:Tip Ansari refused PT Patient Declined: stating had a bad night, do not return today . PT will attempt at later date Images from the original note were not included. [place] Accounts Adjustable Clerk Progress Note Date: 12/20/2021 Patient name: Tip Ansari Date of admission: 12/13/2021 6:34 PM Date of : 1980 PCP: No primary care provider on file. Reason for Admission: Septic embolism (HCC) [I76] Subjective: Clinical Changes /Abnormalities: Seen and examined. complaining of nose bleed. Labs, vitals, & tele reviewed. GIANFRANCO showing mobile area on tricuspid valve. Sinus tachy at 105 on monitor . Had an episode of heart rate going up to 180's last night while caught snoring drugs in room per grocery team member of Systems Medications: Scheduled Meds: [START ON 12/21/2021] vancomycin 1,250 mg IntraVENous Q12H metoprolol tartrate 12.5 mg Oral BID sodium chloride 1 g Oral TID WC vancomycin (VANCOCIN) intermittent dosing (placeholder) Other RX Placeholder potassium chloride 40 mEq Oral Once sodium chloride flush 5-40 mL IntraVENous 2 times per day enoxaparin 40 mg SubCUTAneous Daily Continuous Infusions: sodium chloride CBC: No results for input(s): WBC, HGB, PLT in the last 72 hours. BMP: Recent Labs 12/18/21 0103 12/18/21 0103 12/19/21 0543 12/19/21 1444 12/20/21 0412 NA 128* -- 132* -- 130* K 4.1 < > 5.4* 4.3 4.6 CL 100 -- 101 -- 99 CO2 20 -- 22 -- 23 BUN 10 -- 11 -- 15 CREATININE 0.38* -- 0.72 -- 0.82 GLUCOSE 121* -- 106* -- 110* < > = values in this interval not displayed. Hepatic: No results for input(s): AST, ALT, ALB, BILITOT, ALKPHOS in the last 72 hours. Troponin: No results for input(s): TROPHS in the last 72 hours. BNP: No results for input(s): BNP in the last 72 hours. Lipids: No results for input(s): CHOL, HDL in the last 72 hours. Invalid input(s): LDLCALCU INR: No results for input(s): INR in the last 72 hours. Objective: Vitals: BP 112/82 Pulse 107 Temp 98.8 F (37.1 C) (Oral) Resp 16 Ht 6' 1 (1.854 m) Wt 172 lb 3.2 oz (78.1 kg) SpO2 96% BMI 22.72 kg/m General appearance: alert and cooperative with exam HEENT: Head: Normocephalic, no lesions, without obvious abnormality. Neck:no JVD, trachea midline, no adenopathy Lungs: Clear to auscultation Heart: Regular rate and rhythm, s1/s2 auscultated, no murmurs, sinus tachycardia Abdomen: soft, non-tender, bowel sounds active Extremities: Edema to lower ext. Neurologic: not done GIANFRANCO 12/15/21 GIANFRANCO findings: LA: Normal NURIA: No thrombus RA: Normal RV: Normal LV: Normal Estimated LVEF: 55% Aorta: Mild atheromatous disease arch Pericardium: No pericardial effusion Septum: No intracardiac shunt via color Doppler. Valves: Mitral Valve: Structurally normal. Mild regurgitation is identified. No vegetation Aortic Valve: The aortic valve is trileaflet and opens adequately. No vegetation or regurgitiation is identified. Tricuspid valve: Moderate regurgitation is identified. Mobile echodensity noted on the atrial end of tricuspid valve suggestive of vegetation. Pulmonary valve: Normal. No significant regurgitation Tricuspid vegetation noted No thrombus identified. Summary: 1. A GIANFRANCO was performed without complications. 2. Normal LV systolic function with estimated LVEF 50-55% 3. Mobile echogenic density on atrial side of tricuspid valve leaflets suggestive of a vegetation. There is mild to moderate tricuspid regurgitation. 4. No other valvular vegetations seen. Mild MR noted. Assessment / Acute Cardiac Problems: 1. Tricuspid valve vegitation 2. Chronic Hep C 3. Heroin abuse 4. Anemia Patient Active Problem List: Septic embolism (HCC) Heroin abuse (HCC) Chronic hepatitis C without hepatic coma (HCC) MRSA bacteremia Acute respiratory failure with hypoxia (HCC) Moderate protein-calorie malnutrition (HCC) Bloody diarrhea Anemia Hypokalemia Acute bacterial endocarditis Plan of Treatment: 1. GIANFRANCO as above. IV ATB treatment per primary. 2. No other valvular vegetations noted with just mild MR 3. Sinus tachycardia - improved , treat underlying cause , continue low dose BB for better heart control 4. Continue supportive care. Will f/u on echo after ATB course as OP 5. Cardiology is signing off , follow up in office in 1-2 weeks , please call back with any concerns [place] Accounts Adjustable Clerk [facility]. [phone] [facility] Pharmacokinetic Monitoring Service - Vancomycin Consulting Provider: Dr Andrea Indication: Septic Pulmonary Embolism Target Concentration: Goal AUC/BERENICE 400-600 mg*hr/L Day of Therapy: 7 Additional Antimicrobials: Pertinent Laboratory Values: Wt Readings from Last 1 Encounters: 12/18/21 172 lb 3.2 oz (78.1 kg) Temp Readings from Last 1 Encounters: 12/20/21 98.8 F (37.1 C) (Oral) Estimated Creatinine Clearance: 134 mL/min (based on SCr of 0.82 mg/dL). Recent Labs 12/19/21 0543 12/20/21 0412 CREATININE 0.72 0.82 Procalcitonin: Pertinent Cultures: Culture Date Source Results 12/19 12/16 Blood x2 [place]/Synovial Cyst No growth x 1 day MRSA MRSA Nasal Swab: N/A. Non-respiratory infection. Recent vancomycin administrations vancomycin (VANCOCIN) 1250 mg in dextrose 5 % 250 mL IVPB (mg) 1,250 mg New Bag 12/20/21 0845 1,250 mg New Bag 0035 1,250 mg New Bag 12/19/21 1808 1,250 mg New Bag 0846 1,250 mg New Bag 0055 1,250 mg New Bag 12/18/21 1930 1,250 mg New Bag 0956 vancomycin (VANCOCIN) 1500 mg in dextrose 5 % 250 mL IVPB (mg) 1,500 mg New Bag 12/18/21 0142 1,500 mg New Bag 12/17/21 1350 Assessment: Date/Time Current Dose Concentration Timing of Concentration (h) AUC 12/20/2021 1250 mg every 8 hours 32.8 3 hours post dose 682 Note: Serum concentrations collected for AUC dosing may appear elevated if collected in close proximity to the dose administered, this is not necessarily an indication of toxicity Plan: Current dosing regimen is supra-therapeutic. Patient kidney function is worsenin.38 < 0.72 < 0.82 (12/20) Decrease dose to 1250 mg every 12 hours Repeat vancomycin concentration ordered for 12/21 @ 12 pm random level Pharmacy will continue to monitor patient and adjust therapy as indicated Thank you for the consult, Alexei Mendoza RPH 12/20/2021 8:49 AM Comprehensive Nutrition Assessment Type and Reason for Visit: Reassess Nutrition Recommendations/Plan: Continue current diet. Will provide Ensure Enlive oral supplements x 2 per day. Encourage/monitor PO intakes as tolerated. Will monitor labs, weights, and plan of care. Nutrition Assessment: Pt reports his appetite has improved and he has been eating 50-100% of his meals. Noted pt has also been taking fluids well. Last BM 12/17. Labs reviewed: Na 132 mmol/L, K 5.4 mmol/L. Meds reviewed. Malnutrition Assessment: Malnutrition Status: At risk for malnutrition Context: Acute Illness Findings of the 6 clinical characteristics of malnutrition: Energy Intake: 1 - 75% or less of estimated energy requirements for 7 or more days Weight Loss: No significant weight loss (10% x 7 months noted per chart review) Body Fat Loss: No significant body fat loss Muscle Mass Loss: No significant muscle mass loss Fluid Accumulation: No significant fluid accumulation Crown Perforator Operator Strength: Not Performed Estimated Daily Nutrient Needs: Energy (kcal): 25-28 kcal/kg = 4767-5416 kcals/day; Weight Used for Energy Requirements: Current Protein (g): 1.2-1.5 gm/kg = 90-115 gm pro/day; Weight Used for Protein Requirements: Current Fluid (ml/day): 30 mL/kg = 2300 mL/day or per MD; Method Used for Fluid Requirements: ml/Kg Nutrition Related Findings: Labs/Meds reviewed. Wounds: None Current Nutrition Therapies: ADULT DIET; Regular Anthropometric Measures: Height: 6' 1 (185.4 cm) Current Body Weight: 172 lb 3.2 oz (78.1 kg) Admission Body Weight: 170 lb (77.1 kg) Usual Body Weight: 189 lb (85.7 kg) (05/2021 per chart review) Pace Body Weight: 184 lbs; % Pace Body Weight 93.6 % BMI: 22.7 BMI Categories: Normal Weight (BMI 18.5-24.9) Nutrition Diagnosis: Inadequate oral intake related to (h/o drug abuse; current medical condition) as evidenced by poor intake prior to admission (improving PO intakes; reported h/o weight loss; need for ONS) Nutrition Interventions: Food and/or Nutrient Delivery: Continue Current Diet,Start Oral Nutrition Supplement Nutrition Education/Counseling: No recommendation at this time Coordination of Nutrition Care: Continue to monitor while inpatient Goals: Oral intakes to meet 75-100% of estimated nutrition needs. Nutrition Monitoring and Evaluation: Behavioral-Environmental Outcomes: None Identified Food/Nutrient Intake Outcomes: Food and Nutrient Intake,Supplement Intake Physical Signs/Symptoms Outcomes: Biochemical Data,GI Status,Fluid Status or Edema,Hemodynamic Status,Nutrition Focused Physical Findings,Skin,Weight Discharge Planning: Too soon to determine Contact: [phone] Physical Therapy Facility/Department: [facility] RENAL[facility]MED SURG Daily Treatment Note NAME: Tip Ansari : 1980 Date of Service: 12/19/2021 No chief complaint on file. Discharge Recommendations: Assessment Body structures, Functions, Activity limitations: Decreased functional mobility ;Decreased balance;Decreased endurance;Decreased strength;Decreased ROM;Increased pain Assessment: Pt demonstrates increased HR with activity progressing mobilty , Pt will continue to benefit from PT to progress activity and promote independence with pacing and breathing strategies. Specific instructions for Next Treatment: encourage stair training. PT Education: Goals;PT Role;Plan of Care;Functional Mobility Training Patient Education: pacing and monitoring HR , understanding effects of increased aerobic activity Activity Tolerance Activity Tolerance: Patient limited by pain;Patient limited by endurance;Patient Tolerated treatment well;Other Activity Tolerance: Pt with noted improved activity tolerance using pacing and breathing strategies as well and decreased distance. Patient Diagnosis(es): There were no encounter diagnoses. has a past medical history of Abscess, Chronic hepatitis C without hepatic coma (HCC), COPD (chronic obstructive pulmonary disease) (HCC), Depression, and Drug addiction (HCC). has a past surgical history that includes Appendectomy; Abscess Drainage (Left, 2020); Finger surgery (Right); and Tympanostomy tube placement (Bilateral). Restrictions Restrictions/Precautions Restrictions/Precautions: Fall Risk,Up as Tolerated,General Precautions,Contact Precautions,Cardiac (monitor vitals 2/2 increased HR with activity) Required Braces or Orthoses?: No Position Activity Restriction Other position/activity restrictions: up with assist, Pt with noted increased HR during activity Subjective General Chart Reviewed: Yes Additional Pertinent Hx: Weakness, chest pain, shortness of breath Response To Previous Treatment: Patient with no complaints from previous session. Family / Caregiver Present: No Subjective Subjective: Pt report improved functional abilty, decreased pain and improved mobilty pt report eager to discharge, pt report concern regarding increased HR with mobilty General Comment Comments: RN and pt agreeable to PT. Pt supine in bed upon arrival, pleasant and cooperative throughout Orientation A&Ox4 Cognition Cognition Overall Cognitive Status: Exceptions Arousal/Alertness: Appropriate responses to stimuli Following Commands: Follows multistep commands with increased time;Follows multistep commands with repitition Attention Span: Attends with cues to redirect;Difficulty dividing attention Memory: Appears intact Safety Judgement: Decreased awareness of need for assistance Objective Bed mobility Bridging: Independent Rolling to Left: Independent Rolling to Right: Independent Supine to Sit: Modified independent Sit to Supine: Modified independent Scooting: Independent Comment: pt report up ad gladys in room Transfers Sit to Stand: Independent Stand to sit: Independent Bed to Chair: Independent Ambulation Ambulation?: Yes WB Status: WBAT bilateral U/LE Ambulation 1 Surface: level tile Device: No Device Assistance: Stand by assistance Quality of Gait: slow guarded gait with focus on pacing, breathing and energy conservation due to elevated HR activity Gait Deviations: Slow Serenity;Decreased step length;Decreased step height;Decreased arm swing;Decreased head and trunk rotation Distance: 100ft with focus on direction change, and pacing activity due to increased HR, Pt with noted decreased HR with breathing Comments: Pt has concern for health due to elevated HR, refuse stair training due to fear of poor tolerance. Balance Posture: Good Sitting - Static: Good Sitting - Dynamic: Good Standing - Static: Good Standing - Dynamic: Fair;+ Comments: no LOB with direction changes, clearing obsticals without AD, Pt with decreased arm swing, decreased trunck rotation without AD during gait. Exercises Comments: pt educated on pacing with functional acivity, monitioring HR and taking pulse, breathing and resting when appropriate with good understanding. Pt found Lashon on phone and verbalized understanding of Pacing with activity Strength Other Other: gereral weakness and deconditioning with report of feeling winded with increased acticity .pt requrie rest breaks and breathing strategies. AM-PAC Score AM-PAC Inpatient Mobility without Stair Climbing Raw Score : 20 (12/18/211321) AM-PAC Inpatient without Stair Climbing T-Scale Score : 60.57 (12/18/211321) Mobility Inpatient CMS 0-100% Score: 0 (12/18/211321) Mobility Inpatient without Stair CMS G-Code Modifier : CH (12/18/211321) Goals Short term goals Time Frame for Short term goals: 14 visits Short term goal 1: Perform bed mobility and functional transfers independently Short term goal 2: Ambulate 600ft independently Short term goal 3: Ascend/descend 4 steps with HR and supervision Short term goal 4: Demo Good dynamic standing balance to decrease risk of falls Plan Plan Times per week: 5x/wk Specific instructions for Next Treatment: encourage stair training. Current Treatment Recommendations: Strengthening,ROM,Balance Training,Functional Mobility Training,Transfer Training,Gait Training,Stair training,Endurance Training,Home Exercise Program,Safety Education & Training,Patient/Caregiver Education & Training Safety Devices Type of devices: Nurse notified,Call light within reach,Gait belt,Left in bed Restraints Initially in place: No Therapy Time Individual Concurrent Group Co-treatment Time In 1038 Time Out 1106 Minutes 28 Timed Code Treatment Minutes: 28 Minutes Liz Rose PT Images from the original note were not included. [place] [employer] Adjustable Clerk Progress Note Date: 12/19/2021 Patient name: Tip Ansari Date of admission: 12/13/2021 6:34 PM Date of : 1980 PCP: No primary care provider on file. Reason for Admission: Septic embolism (HCC) [I76] Subjective: Clinical Changes /Abnormalities: Seen and examined , complains of insomnia , no acute CV issues/concerns overnight. Labs, vitals, & tele reviewed. GIANFRANCO from Saturday showing mobile area on tricuspid valve. Sinus tachy at 129 on monitor Review of Systems Medications: Scheduled Meds: metoprolol tartrate 12.5 mg Oral BID vancomycin 1,250 mg IntraVENous Q8H sodium chloride 1 g Oral TID WC vancomycin (VANCOCIN) intermittent dosing (placeholder) Other RX Placeholder potassium chloride 40 mEq Oral Once sodium chloride flush 5-40 mL IntraVENous 2 times per day enoxaparin 40 mg SubCUTAneous Daily Continuous Infusions: sodium chloride CBC: Recent Labs 12/17/21 0547 WBC 6.2 HGB 9.4* PLT 188 BMP: Recent Labs 12/17/21 0547 12/18/21 0103 12/19/21 0543 NA 131* 128* 132* K 4.7 4.1 5.4* CL 102 100 101 CO2 24 20 22 BUN 9 10 11 CREATININE 0.52* 0.38* 0.72 GLUCOSE 97 121* 106* Hepatic: No results for input(s): AST, ALT, ALB, BILITOT, ALKPHOS in the last 72 hours. Troponin: No results for input(s): TROPHS in the last 72 hours. BNP: No results for input(s): BNP in the last 72 hours. Lipids: No results for input(s): CHOL, HDL in the last 72 hours. Invalid input(s): LDLCALCU INR: No results for input(s): INR in the last 72 hours. Objective: Vitals: BP (!) 91/59 Pulse 108 Temp 98.6 F (37 C) (Oral) Resp 18 Ht 6' 1 (1.854 m) Wt 172 lb 3.2 oz (78.1 kg) SpO2 94% BMI 22.72 kg/m General appearance: alert and cooperative with exam HEENT: Head: Normocephalic, no lesions, without obvious abnormality. Neck:no JVD, trachea midline, no adenopathy Lungs: Clear to auscultation Heart: Regular rate and rhythm, s1/s2 auscultated, no murmurs, sinus tachycardia Abdomen: soft, non-tender, bowel sounds active Extremities: no edema Neurologic: not done GIANFRANCO 12/15/21 GIANFRANCO findings: LA: Normal NURIA: No thrombus RA: Normal RV: Normal LV: Normal Estimated LVEF: 55% Aorta: Mild atheromatous disease arch Pericardium: No pericardial effusion Septum: No intracardiac shunt via color Doppler. Valves: Mitral Valve: Structurally normal. Mild regurgitation is identified. No vegetation Aortic Valve: The aortic valve is trileaflet and opens adequately. No vegetation or regurgitiation is identified. Tricuspid valve: Moderate regurgitation is identified. Mobile echodensity noted on the atrial end of tricuspid valve suggestive of vegetation. Pulmonary valve: Normal. No significant regurgitation Tricuspid vegetation noted No thrombus identified. Summary: 1. A GIANFRANCO was performed without complications. 2. Normal LV systolic function with estimated LVEF 50-55% 3. Mobile echogenic density on atrial side of tricuspid valve leaflets suggestive of a vegetation. There is mild to moderate tricuspid regurgitation. 4. No other valvular vegetations seen. Mild MR noted. Assessment / Acute Cardiac Problems: 1. Tricuspid valve vegitation 2. Chronic Hep C 3. Heroin abuse 4. Anemia Patient Active Problem List: Septic embolism (HCC) Heroin abuse (HCC) Chronic hepatitis C without hepatic coma (HCC) MRSA bacteremia Acute respiratory failure with hypoxia (HCC) Moderate protein-calorie malnutrition (HCC) Bloody diarrhea Anemia Hypokalemia Acute bacterial endocarditis Plan of Treatment: 1. GIANFRANCO as above. IV ATB treatment per primary. 2. No other valvular vegetations noted with just mild MR 3. Sinus tachycardia - treat underlying cause , will add low dose BB for better heart control 4. Continue supportive care. Will f/u on echo after ATB course as OP [place] Accounts Adjustable Clerk [facility]. [phone] Images from the original note were not included. [facility] - Infectious diseases evaluation admission date 12/13/2021 reason for consultation: Septic pulmonary emboli Impression : Current: Pulmonary septic emboli with cavitary pneumonia MRSA septicemia and TV endocarditis MRSA infected left wrist R knee joint Left ankle joint pain - cx neg R shoulder pain dry tap Heroin use Chronic hepC Allergy severe to PNC Discussion / summary of stay / plan of care Recommendations Continue Vanco for MRSA TV endocarditis w septic pulm emboli and joint infections GIANFRANCO 12/18 TV dense vegetations Septic joint fluid R knee and left wrist-aspirated and tenderness resolved Ortho aspirated right shoulder which yielded a dry tap. They recommended IR guided aspiration under fluoro scopy for continued concern So far BC neg since 12/17 Improving CRP 56-> 45.9 anticipate 6 weeks iv Ab at DC Will discuss the option of the at the dalbavancin weekly for better compliance Daptomycin cannot be used as he had septic pulmonary emboli Infection Control Recommendations [place] Precautions Contact Isolation Antimicrobial Stewardship Recommendations Simplification of therapy Targeted therapy PK dosing Coordination ofOutpatient Care: Estimated Length of IV antimicrobials: Patient will need Midline / picc Catheter Insertion: Patient will need SNF: Patient will need outpatient wound care: History of Present Illness: Initial history: Tip Ansari is a 41 y.o.-year-old male sent from another hospital because of pulmonary septic emboli, he is a heroin user Went to [place] with shortness of breath and fever, hypoxic started on oxygen. And blood in stools w abd pain. CT 12/11 shows multifocal nodular cavitary lesions likely septic emboli 2D echo 12/12 no clear vegetation Vancomycin started on 12/11 It seems that he had collapsed on 12/04 with a needle in his arm, since then he has had an ankle pain He also has had a left hand swelling with redness, he claims it was from a lab draw. bloody diarrhea and abd pain ultimately Resolved after AB Currently abd non tender L slightly edematous and slightly tender to touch but not red, possibly sprain Interval changes 12/19/2021 Patient Vitals for the past 8 hrs: BP Temp Temp src Pulse Resp SpO2 Height 12/19/21 1513 6' 1 (1.854 m) 12/19/21 1210 113/73 98.2 F (36.8 C) Oral 94 16 93 % 12/19/21 0831 (!) 91/59 98.6 F (37 C) Oral 108 18 94 % 12/15 Walking comfortable ambulating without any lower back pain management pain Left hand dorsum area remains red tender swollen, patient claims it was only after blood was removed Denies there was an injection of drugs in that area Blood cultures MRSA 12/16 Afebrile, VS stable. On vancomycin for MRSA septicemia. BC + on 12/16. C/o persistent pain of the joints. 12/17 Afebrile, VS stable, tachycardic. Comfortable on room air RR 16 02 sat 95 Joints less tender after aspiration by Ortho on 12-16-21 Rt knee aspiration with MRSA Lt ankle and wrist: No growth 12/18 Afebrile, hemodynamically stable, in sinus tachycardia. C/o persistent pain in the joints, left wrist and right knee more than right shoulder and left ankle. He also has had disturbed sleep overnight. He is tolerating oral diet. Aspirate from right knee positive for MRSA. Aspirates from left ankle with no growth to date, left wrist fluid is growing S. Aureus. GIANFRANCO + TV vegetations Will repeat blood culture today and tomorrow. No CBC available to compare. 12/19 Afebrile, Vitals stable, tachycardic, started on low dose beta yasmani. He feels better overall. He is working with PT/OT. He underwent a DRY right shoulder joint aspiration, no fluid was obtained. If he continued to have limited range of motion and pain, Ortho recommended IR guided aspiration under fluoroscopy. Improving leukocytosis and inflammatory markers. Will consult CT surgery since he had tricuspid valve endocarditis Summary of relevant labs: Labs: WBC 9.1 9.2-->6.2 Platelets 112-->188 BUN 9->10-> 11 Cr 0.52->0.38-> 0.72 Micro: Blood culture 12/13 X 2 MRSA 12/16: MRSA x 2 12/18 shows no growth so far. Imaging: CXR 12/19 Scattered pulmonary infiltrates seen with right-sided PICC line. C T scan [facility] 12/11 suggestive of multifocal septic emboli with cavitation I have personally reviewed the past medical history, past surgical history, medications, social history, and family history, and I haveupdated the database accordingly. Allergies: Pcn [penicillins] Review of Systems: Review of Systems Constitutional: Negative for activity change, chills and diaphoresis. HENT: Negative for congestion. Eyes: Negative for pain, discharge and itching. Respiratory: Negative for apnea. Cardiovascular: Negative for chest pain. Gastrointestinal: Negative for abdominal distention and abdominal pain. Endocrine: Negative for cold intolerance, heat intolerance and polydipsia. Genitourinary: Negative for dysuria. Musculoskeletal: Negative for arthralgias. Skin: Negative for color change. Allergic/Immunologic: Negative for immunocompromised state. Neurological: Negative for dizziness. Hematological: Negative for adenopathy. Psychiatric/Behavioral: Negative for agitation. Physical Examination : Physical Exam Constitutional: Appearance: Normal appearance. He is not ill-appearing. HENT: Head: Normocephalic and atraumatic. Nose: Nose normal. Mouth/Throat: Mouth: Mucous membranes are moist. Eyes: General: No scleral icterus. Conjunctiva/sclera: Conjunctivae normal. Cardiovascular: Rate and Rhythm: Normal rate and regular rhythm. Heart sounds: Normal heart sounds. No friction rub. Pulmonary: Breath sounds: Normal breath sounds. No stridor. Abdominal: General: There is no distension. Palpations: Abdomen is soft. There is no mass. Genitourinary: Comments: No ortiz Musculoskeletal: General: No swelling, tenderness, deformity or signs of injury. Cervical back: Neck supple. No rigidity. Right lower leg: No edema. Left lower leg: No edema. Comments: Left hand dorsum pink sore - Left ankle edema and slightly tender Skin: General: Skin is dry. Coloration: Skin is not jaundiced. Neurological: General: No focal deficit present. Mental Status: He is alert and oriented to person, place, and time. Cranial Nerves: No cranial nerve deficit. Psychiatric: Mood and Affect: Mood normal. Thought Content: Thought content normal. Past Medical History: Past Medical History: Diagnosis Date Abscess 2020 left arm + MRSA Chronic hepatitis C without hepatic coma (HCC) COPD (chronic obstructive pulmonary disease) (HCC) Depression Drug addiction (HCC) heroin Past Surgical History: Past Surgical History: Procedure Laterality Date ABSCESS DRAINAGE Left 2019 arm APPENDECTOMY FINGER SURGERY Right 5 th finger tendon repair TYMPANOSTOMY TUBE PLACEMENT Bilateral Medications: metoprolol tartrate 12.5 mg Oral BID vancomycin 1,250 mg IntraVENous Q8H sodium chloride 1 g Oral TID WC vancomycin (VANCOCIN) intermittent dosing (placeholder) Other RX Placeholder potassium chloride 40 mEq Oral Once sodium chloride flush 5-40 mL IntraVENous 2 times per day enoxaparin 40 mg SubCUTAneous Daily Social History: Social History Socioeconomic History Marital status: Single Spouse name: Not on file Number of children: Not on file Years of education: Not on file Highest education level: Not on file Occupational History Not on file Tobacco Use Smoking status: Former Smoker Smokeless tobacco: Never Used Substance and Sexual Activity Alcohol use: No Drug use: Yes Types: Cocaine, Opiates , Marijuana ([place]), Methamphetamines (Crystal Meth) Comment: quit heroin Nov Sexual activity: Not on file Other Topics Concern Not on file Social History Narrative Not on file Social Determinants of Health Financial Resource Strain: Difficulty of Paying Living Expenses: Not on file Food Insecurity: Worried About Running Out of Food in the Last Year: Not on file Ran Out of Food in the Last Year: Not on file Transportation Needs: Lack of Transportation (Medical): Not on file Lack of Transportation (Non-Medical): Not on file Physical Activity: Days of Exercise per Week: Not on file Minutes of Exercise per Session: Not on file Stress: Feeling of Stress : Not on file Social Connections: Frequency of Communication with Friends and Family: Not on file Frequency of Social Gatherings with Friends and Family: Not on file Attends Bahai Services: Not on file Active Member of Clubs or Organizations: Not on file Attends Club or Organization Meetings: Not on file Marital Status: Not on file Intimate Partner Violence: Fear of Current or Ex-Partner: Not on file Emotionally Abused: Not on file Physically Abused: Not on file Sexually Abused: Not on file Housing Stability: Unable to Pay for Housing in the Last Year: Not on file Number of Places Lived in the Last Year: Not on file Unstable Housing in the Last Year: Not on file Family History: Family History Problem Relation Age of Onset Cancer Mother skin No Known Problems Father Diabetes Maternal Grandmother Diabetes Maternal Grandfather Medical Decision Making: I have independently reviewed/ordered the following labs: CBC with Differential: Recent Labs 12/17/21 0547 WBC 6.2 HGB 9.4* HCT 28.4* PLT 188 LYMPHOPCT 20* MONOPCT 11 BMP: Recent Labs 12/18/21 0103 12/18/21 0103 12/19/21 0543 12/19/21 1444 NA 128* -- 132* -- K 4.1 < > 5.4* 4.3 CL 100 -- 101 -- CO2 20 -- 22 -- BUN 10 -- 11 -- CREATININE 0.38* -- 0.72 -- < > = values in this interval not displayed. Hepatic Function Panel: No results for input(s): PROT, LABALBU, BILIDIR, IBILI, BILITOT, ALKPHOS, ALT, AST in the last 72 hours. No results for input(s): RPR in the last 72 hours. No results for input(s): HIV in the last 72 hours. No results for input(s): BC in the last 72 hours. Lab Results Component Value Date CREATININE 0.72 12/19/2021 GLUCOSE 106 12/19/2021 Detailed results: Thank you for allowing us to participate in the care of this patient.Please call with questions. This note is created with the assistance of a speech recognition program. While intending to generate adocument that actually reflects the content of the visit, the document can still have some errors including those of syntax and sound a like substitutions which may escape proof reading. It such instances, actual meaningcan be extrapolated by contextual diversion. Danielle Ren MD Internal Medicine Resident, PGY-1 Infectious Disease Service, [facility]. I have discussed the care of the patient, including pertinent history and exam findings, with the resident. I have seen and examined the patient and the hall elements of all parts of the encounter have been performed by me. I agree with the assessment, plan and orders as documented by the resident. Marisol Andrea, Infectious Diseases Images from the original note were not included. [facility] Office: [phone] Mikie Rodriguez DO, Theo Lerma DO, Stuart Natarajan DO, Harpal Tran DO, Prashanth Sadler MD, Deana Raza MD, Florencia Canela MD, Tess Ford MD, Yuliana Saenz MD, Leodan Mak MD, Marimar Ren MD, Fabricio Syed DO, Kyle Broussard DO, Juan Driver MD, Sophia Agustin DO, Lyle Woods MD, Jodi Bain MD, Palomo Drummond MD, Radha Avila MD, Alberto Perez MD, Teresa Quintero, [employer] SALES ENGINEER, Tika Hernandez, [employer] EQUIPMENT SALES ENGINEER, Mary Meléndez, MARINE EQUIPMENT SALES ENGINEER, Cathleen Moran, [facility], Abdirahman Bella, MARINE EQUIPMENT SALES ENGINEER, eLslie Rao, MARINE EQUIPMENT SALES ENGINEER, Madalyn Dixon, MARINE EQUIPMENT SALES ENGINEER, Ro Bernard, [employer] EQUIPMENT SALES ENGINEER, Carter Charles, [employer] EQUIPMENT SALES ENGINEER, Mckayla Abraham PA-C, Eli Fu, DNP, Razia Figueroa, DNP, Keri Walker, [employer] SALES ENGINEER, Sherrie Rea, [employer] EQUIPMENT SALES ENGINEER, Moon Waldrop, MARINE EQUIPMENT SALES ENGINEER, Ethel Soto, MARINE EQUIPMENT SALES ENGINEER, Jazzy Javier, MARINE EQUIPMENT SALES ENGINEER, Shelli Menon, MARINE EQUIPMENT SALES ENGINEER [facility] IN-PATIENT SERVICE [facility] Progress Note 12/19/2021 8:19 AM Name: Tip Ansari Acct: [id number] Room: [address] [place] [address] Day: 6 Admit Date: 12/13/2021 6:34 PM PCP: No primary care provider on file. Code Status: Full Code Subjective: C/C: Weakness, chest pain, shortness of breath Interval History Status: improved. Pt seen and evaluated. He is denying any new complaints. His joints feel better following aspiration by ortho. He is denying fever, chills, shortness of breath. Brief History: Per my colleague:Tip Ansari is a 41 y.o. male who presents with weakness. He was directly admitted from [facility] Dec 13 for the management of Septic embolism (HCC). Pt has used Heroin intermittently several years Presented to [facility] ED 12/11 with 2 day hx of Nausea, bloody diarrhea stools, weakness, F/C. He quit heroin ~ 12/04 after collapsing w needle in his arm. He also uses mariajuana but denies amphetamine use. Pt reports left ankle pain and swelling since the collapse. He was seen a few days earlier at another ED and reports left hand swelling and redness from a lab draw. Initial work up: WBC 12.6, Na 122, K 2.9, BUN/Cr 11/0.71, LFT's wnl, Ca 7.8, Alb 2, TP 6.3 UDS + methamphetamine & THC (neg opiates). Covid Neg, Stool OB +, stool cultures neg, BC's x 2 + MRSA 12/11 CT chest wo contrast: Bilat multilobar, multifocal scattered nodular opacities, the larger w cavitation, likely septic emboli. 12/12 Cardiac Echo: No gross vegetation, normal EF Started Vanco via rt picc placed 12/11. Bloody Diarrhea has resolved since ATBX started. Blood cultures positive for MRSA GIANFRANCO done on 12/15/2021, showed tricuspid valve vegetation 12/16/21 patient underwent aspiration of the joints by orthopedics. Review of Systems: Constitutional: negative for chills, fevers, sweats Respiratory: Positive for cough that is improving, no wheezing Cardiovascular: negative for chest pain, chest pressure/discomfort, lower extremity edema, palpitations Gastrointestinal: negative for abdominal pain, constipation, diarrhea, nausea, vomiting Neurological: negative for dizziness, headache Medications: Allergies: Allergies Allergen Reactions Pcn [Penicillins] Anaphylaxis Current Meds: Scheduled Meds: vancomycin 1,250 mg IntraVENous Q8H sodium chloride 1 g Oral TID WC vancomycin (VANCOCIN) intermittent dosing (placeholder) Other RX Placeholder potassium chloride 40 mEq Oral Once sodium chloride flush 5-40 mL IntraVENous 2 times per day enoxaparin 40 mg SubCUTAneous Daily Continuous Infusions: sodium chloride PRN Meds: zolpidem, ALPRAZolam, morphine, albuterol, sodium chloride flush, sodium chloride, potassium chloride OR potassium alternative oral replacement OR potassium chloride, magnesium sulfate, ondansetron OR ondansetron, acetaminophen OR acetaminophen, bisacodyl Data: Past Medical History: has a past medical history of Abscess, Chronic hepatitis C without hepatic coma (HCC), COPD (chronic obstructive pulmonary disease) (HCC), Depression, and Drug addiction (HCC). Social History: reports that he has quit smoking. He has never used smokeless tobacco. He reports current drug use. Drugs: Cocaine, Opiates , Marijuana ([place]), and Methamphetamines (Crystal Meth). He reports that he does not drink alcohol. Family History: Family History Problem Relation Age of Onset Cancer Mother skin No Known Problems Father Diabetes Maternal Grandmother Diabetes Maternal Grandfather Vitals: BP (!) 141/93 Pulse 130 Temp 97.2 F (36.2 C) (Oral) Resp 16 Ht 6' 1 (1.854 m) Wt 172 lb 3.2 oz (78.1 kg) SpO2 96% BMI 22.72 kg/m Temp (24hrs), Av.6 F (36.4 C), Min:97.2 F (36.2 C), Max:97.9 F (36.6 C) No results for input(s): POCGLU in the last 72 hours. I/O (24Hr): Intake/Output Summary (Last 24 hours) at 12/19/2021 08 Last data filed at 12/18/2021 1719 Gross per 24 hour Intake 4980 ml Output 350 ml Net 4630 ml Labs: Hematology: Recent Labs 12/17/21 0547 12/19/21 0543 WBC 6.2 -- RBC 3.36* -- HGB 9.4* -- HCT 28.4* -- MCV 84.5 -- MCH 28.0 -- MCHC 33.1 -- RDW 14.9* -- PLT 188 -- MPV 9.9 -- CRP 56.1* 45.9* Chemistry: Recent Labs 12/17/21 0547 12/18/21 0103 12/19/21 0543 NA 131* 128* 132* K 4.7 4.1 5.4* CL 102 100 101 CO2 24 20 22 GLUCOSE 97 121* 106* BUN 9 10 11 CREATININE 0.52* 0.38* 0.72 ANIONGAP 5* 8* 9 LABGLOM >60 >60 >60 GFRAA >60 >60 >60 CALCIUM 7.9* 7.7* 8.4* Recent Labs 12/19/21 0543 TSH 2.73 ABG: Lab Results Component Value Date PHART 7.380 12/16/2020 [id number] 44.5 12/16/2020 PO2ART 94.4 12/16/2020 [id number] 25.7 12/16/2020 NBEA NOT REPORTED 12/16/2020 PBEA 0.3 12/16/2020 [id number] 97.1 12/16/2020 FIO2 28 12/16/2020 Lab Results Component Value Date/Time SPECIAL RIGHT HAND 20ML 12/19/2021 05:43 AM Lab Results Component Value Date/Time CULTURE NO GROWTH <24 HRS 12/19/2021 05:43 AM Radiology: XR WRIST LEFT (MIN 3 VIEWS) Result Date: 12/13/2021 Left wrist: No fracture. Left ankle: No fracture. Moderate soft tissue swelling at the site of insertion of Achillis tendon to calcaneus. XR ANKLE LEFT (MIN 3 VIEWS) Result Date: 12/13/2021 Left wrist: No fracture. Left ankle: No fracture. Moderate soft tissue swelling at the site of insertion of Achillis tendon to calcaneus. Physical Examination: General appearance: alert, cooperative and no distress Mental Status: oriented to person, place and time and normal affect Lungs: clear to auscultation bilaterally, normal effort Heart: RRR, no murmur, rub, gallop Abdomen: soft, nontender, nondistended, normal bowel sounds, no masses, hepatomegaly, splenomegaly Extremities: Tenderness in the right shoulder girdle area, also swelling in the left wrist is improving, range of movements is improving, edema in the left ankle is improving as well. No swelling or redness in the arms or legs Skin: no gross lesions, rashes, induration Assessment: Hospital Problems Last Modified POA * (Principal) Septic embolism (HCC) 12/14/2021 Yes Heroin abuse (HCC) 12/14/2021 Yes Chronic hepatitis C without hepatic coma (HCC) 12/14/2021 Yes MRSA bacteremia 12/14/2021 Yes Acute respiratory failure with hypoxia (HCC) 12/14/2021 Yes Moderate protein-calorie malnutrition (HCC) (Chronic) 12/14/2021 Yes Bloody diarrhea 12/14/2021 Yes Anemia 12/14/2021 Yes Hypokalemia 12/14/2021 Yes Acute bacterial endocarditis 12/16/2021 Yes Plan: MRSA bacteremia secondary to tricuspid valve endocarditis -Continue vancomycin as ordered. Appreciate infectious disease and cardiology recommendations. Septic arthritis, right knee -Aspirate positive for MRSA. Orthopedic surgery signing off. Continue antibiotics. Hyponatremia secondary to SIADH -Continue salt tabs. Fluid restriction. Physiologic sinus tachycardia Chronic hepatitis C -Referral to GI on discharge. Mckayla Abraham PA-C 12/19/2021 8:19 AM Associated attestation - Theo Lerma, DO - 12/19/2021 8:51 PM EST Attestation: I have seen and examined Tip Ansari and the hall elements of all parts of the encounter have been performed by me. I agree with the assessment, plan and orders as documented by the Advanced Practice Provider. Any modifications to the exam findings and the plan of treatment is as below and the final version is my approved version of the assessment. Additional Comments: No fever, chills, sweats Still reporting ankle, wrist and shoulder pain There is difficulty ambulating Patient awake and orientated Heart is regular in rate and rhythm Lungs are clear, no rales or rhonchi /wheeze Abdomen is soft, nontender, bowel sounds present His wrist is warm and swollen There is bilateral edema worse on the left His left ankle is swollen and warm No gross motor or sensory deficits No cyanosis Database has included: GIANFRANCO: 1. A GIANFRANCO was performed without complications. 2. Normal LV systolic function with estimated LVEF 50-55% 3. Mobile echogenic density on atrial side of tricuspid valve leaflets suggestive of a vegetation. There is mild to moderate tricuspid regurgitation. 4. No other valvular vegetations seen. Mild MR noted. Calcium8.4 Low mg/dL [id number] Low mmol/L Potassium5.4 High Follow-up chest x-ray: Impression: Scattered infiltrates with right-sided PICC line. Repeat cultures have revealed: Specimen Source: Bursa/Synovial Cyst Specimen Description.BURSA RIGHT Special RequestsNOT REPORTED Direct ExamMANY NEUTROPHILS Abnormal NO BACTERIA SEEN CultureMETHICILLIN RESISTANT STAPHYLOCOCCUS AUREUS SCANT GROWTH Abnormal NO ANAEROBIC ORGANISMS ISOLATED AT 3 DAYS Abnormal Specimen Source: Bursa/Synovial Cyst Specimen Description.BURSA LEFT Special RequestsNOT REPORTED Direct ExamMANY NEUTROPHILS Abnormal NO BACTERIA SEEN CultureMETHICILLIN RESISTANT STAPHYLOCOCCUS AUREUS SCANT GROWTH Abnormal NO ANAEROBIC ORGANISMS ISOLATED AT 2 DAYS Abnormal Specimen Source: Bursa/Synovial Cyst Specimen Description.BURSA LEFT Special RequestsNOT REPORTED Direct ExamMANY NEUTROPHILS Abnormal NO BACTERIA SEEN CultureMETHICILLIN RESISTANT STAPHYLOCOCCUS AUREUS SCANT GROWTH Abnormal NO ANAEROBIC ORGANISMS ISOLATED AT 2 DAYS Abnormal The patient underwent shoulder aspiration today Antibiotics per ID Ortho evaluation and follow-up as scheduled Cardiology evaluation follow-up as scheduled Correct electrolyte abnormalities Pain management PT/OT Detox Heroin abstinence Anticipate placement Cardiothoracic surgical evaluation and follow-up as scheduled Discharge planning Will discharge when arrangements complete and ok with other services. Follow-up with PCP in one week, No primary care provider on file. Notify PCP of discharge Occupational Therapy Occupational Therapy Initial Assessment Date: 12/18/2021 Patient Name: Tip Ansari : 1980 Date of Service: 12/18/2021 CC: Weakness, chest pain, shortness of breath Discharge Recommendations: Patient would benefit from continued therapy after discharge OT Equipment Recommendations Equipment Needed: (will continue to assess need for DME) Assessment Performance deficits / Impairments: Decreased functional mobility ;Decreased endurance;Decreased ADL status;Decreased balance;Decreased strength;Decreased safe awareness;Decreased high-level IADLs Assessment: Pt is very motivated to regain functional independence with daily tasks and overall endurance. He currently has deficits / impairments which impact her ability to return to prior living situation / prior level of functioning, but will benefit from continued participation in OT services to improve those skills / functions. Prognosis: Good Decision Making: Medium Complexity REQUIRES OT FOLLOW UP: Yes Activity Tolerance Activity Tolerance: Patient Tolerated treatment well Activity Tolerance: Limited d/t tachycardia at rest and with activity. Safety Devices Safety Devices in place: Yes Type of devices: Left in bed;Call light within reach;Nurse notified Restraints Initially in place: No Patient Diagnosis(es): There were no encounter diagnoses. has a past medical history of Abscess, Chronic hepatitis C without hepatic coma (HCC), COPD (chronic obstructive pulmonary disease) (HCC), Depression, and Drug addiction (HCC). has a past surgical history that includes Appendectomy; Abscess Drainage (Left, 2019); Finger surgery (Right); and Tympanostomy tube placement (Bilateral). Restrictions Restrictions/Precautions Restrictions/Precautions: Fall Risk,Up as Tolerated Required Braces or Orthoses?: No Position Activity Restriction Other position/activity restrictions: up with assist Subjective General Patient assessed for rehabilitation services?: Yes Family / Caregiver Present: No Diagnosis: Septic Embolism Subjective Subjective: RN approved Pt to be seen for OT eval. Pt was agreeable but required max coaxing / encouragement (reported he did not need therapy services). Patient Currently in Pain: No Pain Assessment Pain Assessment: 0-10 Pain Level: 0 Patient's Stated Pain Goal: No pain Vital Signs Pulse: (At rest HR 119-125. With Activity HR 120-146. Pt reports he is asymptomatic to tachycardia.) Level of Consciousness: Alert (0) Patient Currently in Pain: No Social/Functional History Social/Functional History Lives With: Significant other Type of Home: Apartment Home Equipment: (no DME) ADL Assistance: Independent Homemaking Assistance: Independent Homemaking Responsibilities: Yes Ambulation Assistance: Independent Transfer Assistance: Independent Additional Comments: Pt returns plans to attend rehab upon discharge and possibly stay with friend upon completion of rehab. He reports having a girlfriend but that she is ill herself. Objective Vision: Within Functional Limits Hearing: Within functional limits Orientation Overall Orientation Status: Within Functional Limits Balance Sitting Balance: Modified independent Standing Balance: Supervision Standing Balance Time: Several stints of static and dynamic balance during ADLs (1-2 minutes each). Activity: During LBD, Toileting, and Grooming in Standing. During item retrieval. Comment: Without DME, maintained standing balance with Supervision Assist. No LOB. Functional Mobility Functional - Mobility Device: No device Assist Level: Supervision Functional Mobility Comments: Functional Mobility for in-room distances and obstacle negotiation. Required Supervision Assist (for safety / to monitor HR) and Mod VCs for integraiton of EC / Ax Pacing and integration of safety awareness. Toilet Transfers Equipment Used: Standard bedside commode Toilet Transfer: Supervision Toilet Transfers Comments: Completed transfers / transitional movements without DME. Required Supervision Assist (for safety / to monitor HR) and Mod VCs for integraiton of EC / Ax Pacing and integration of safety awareness. ADL Feeding: Modified independent Grooming: Supervision;Increased time to complete;Verbal cueing UE Dressing: Supervision;Increased time to complete;Verbal cueing LE Dressing: Supervision;Verbal cueing;Increased time to complete Toileting: Supervision;Increased time to complete Additional Comments: Pt was able to complete all ADLs (UB and LB) with Supervision Assist, without DME or AE. Pt required Sup Assist in order to monitor / manage HR (d/t tachycardia) and for Mod VCs / Reminders for integration of EC / Ax pacing and integration Safety awareness. Tone RUE RUE Tone: Normotonic Tone LUE LUE Tone: Normotonic Coordination Movements Are Fluid And Coordinated: No Coordination and Movement description: Right UE;Left UE;Ataxia;Decreased accuracy Bed mobility Supine to Sit: Modified independent Sit to Supine: Modified independent Scooting: Modified independent Comment: HOB elevated and use of Bilateral Handrails. Transfers Sit to stand: Supervision Stand to sit: Supervision Transfer Comments: Completed transfers / transitional movements without DME. Required Supervision Assist (for safety / to monitor HR) and Mod VCs for integraiton of EC / Ax Pacing and integration of safety awareness. Cognition Overall Cognitive Status: Exceptions Arousal/Alertness: Appropriate responses to stimuli Following Commands: Follows multistep commands with increased time;Follows multistep commands with repitition Attention Span: Attends with cues to redirect;Difficulty dividing attention Memory: Appears intact Safety Judgement: Decreased awareness of need for assistance Insights: Decreased awareness of deficits Cognition Comment: Pt was talkative, easily distracted. He required Mod VCs / reminders for redirection to task, integration of RBs and Ax Pacing (d/t tachycardia, worse with activity). LUE AROM (degrees) LUE AROM : WFL RUE AROM (degrees) RUE AROM : WFL LUE Strength Gross LUE Strength: WFL RUE Strength Gross RUE Strength: WFL Plan Plan Times per week: 3-4x/week Current Treatment Recommendations: Strengthening,Patient/Caregiver Education & Training,Home Management Training,Equipment Evaluation, Education, & procurement,Balance Training,Functional Mobility Training,Endurance Training,Pain Management,Safety Education & Training,Self-Care / ADL AM-[facility] Score -[facility] Inpatient Daily Activity Raw Score: 19 (12/18/211642) AM-[facility] Inpatient ADL T-Scale Score : 40.22 (12/18/211642) ADL Inpatient CMS 0-100% Score: 42.8 (12/18/211642) ADL Inpatient CMS G-Code Modifier : CK (12/18/211642) Goals Short term goals Time Frame for Short term goals: By Discharge Short term goal 1: Pt will verbalize / demo Mod I and Good Integration of EC & Ax Pacing during all tasks / activities. Short term goal 2: Pt will participate in UB / LB ADLs with Mod I while maintaining Good Balance. Short term goal 3: Pt will participate in Dynamic Standing Tolerance (with Good balance, 15-20 minutes) during functional / leisure task. Short term goal 4: Pt will participate in Item Retrieval and Transport (of everyday items) with Mod I with Good Safety Awareness. Therapy Time Individual Concurrent Group Co-treatment Time In 1537 Time Out 1600 Minutes 23 Timed Code Treatment Minutes: 15 Minutes (ADL) BREE Balderrama OTR/L Physical Therapy Facility/Department: [facility] RENAL//MED SURG Daily Treatment Note NAME: Tip Ansari : 1980 Date of Service: 12/18/2021 No chief complaint on file. Weakness, chest pain, shortness of breath Tip Ansari is a 41 y.o. male who presents with weakness. Pt was admitted from [facility] Dec 13 for the management of Septic embolism Discharge Recommendations: home Assessment Assessment: Pt demonstrates improved functional ability and mobilty with report of pain resolved Specific instructions for Next Treatment: encourage stairs and further distance gait. PT Education: Goals;PT Role;Plan of Care;Functional Mobility Training REQUIRES PT FOLLOW UP: Yes Activity Tolerance Activity Tolerance: Patient limited by pain;Patient limited by endurance Activity Tolerance: Pt report not resting well report up ad gladys and decline further activity states eager to discharge Patient Diagnosis(es): There were no encounter diagnoses. has a past medical history of Abscess, Chronic hepatitis C without hepatic coma (HCC), COPD (chronic obstructive pulmonary disease) (HCC), Depression, and Drug addiction (HCC). has a past surgical history that includes Appendectomy; Abscess Drainage (Left, 2020); Finger surgery (Right); and Tympanostomy tube placement (Bilateral). Restrictions Restrictions/Precautions Restrictions/Precautions: Fall Risk,Up as Tolerated Required Braces or Orthoses?: No Position Activity Restriction Other position/activity restrictions: up with assist Subjective General Chart Reviewed: Yes Additional Pertinent Hx: Weakness, chest pain, shortness of breath Response To Previous Treatment: Patient with no complaints from previous session. Family / Caregiver Present: No Subjective Subjective: Pt report improved functional abilty, decreased pain and improved mobilty pt report eager to discharge General Comment Comments: RN and pt agreeable to PT. Pt supine in bed upon arrival, pleasant and cooperative throughout Pain Screening Patient Currently in Pain: No Pain Assessment Pain Assessment: 0-10 Vital Signs Patient Currently in Pain: No Orientation Orientation Overall Orientation Status: Within Functional Limits Cognition Cognition Overall Cognitive Status: WFL Objective Bed mobility Bridging: Independent Rolling to Left: Independent Rolling to Right: Independent Supine to Sit: Independent Sit to Supine: Independent Scooting: Contact guard assistance;Independent Comment: no decline in abiltiy no use of bed railings Transfers Sit to Stand: Independent Stand to sit: Independent Bed to Chair: Independent Comment: Pt report pain symptoms have resolved and able to move at prior of mobiltiy Ambulation Ambulation?: Yes WB Status: WBAT bilateral U/LE More Ambulation?: No Ambulation 1 Surface: level tile Device: No Device Assistance: Stand by assistance Quality of Gait: normal step length, width and serenity, slight antelgic gait with left knee Distance: 275ft Comments: Pt denies need for further PT intervention, eager to return home states at baseline mobilty Balance Posture: Good Sitting - Static: Good Sitting - Dynamic: Good Standing - Static: Good Standing - Dynamic: Good Comments: no LOB with direction changes, clearing obsticals without AD Exercises Comments: Pt able to complete bilateal LE rom exercises in all planes of mobilty without complaint of pain states exercises on own AM-PAC Score AM-PAC Inpatient Mobility without Stair Climbing Raw Score : 20 (12/18/211321) AM-PAC Inpatient without Stair Climbing T-Scale Score : 60.57 (12/18/211321) Mobility Inpatient CMS 0-100% Score: 0 (12/18/211321) Mobility Inpatient without Stair CMS G-Code Modifier : CH (12/18/211321) Goals Short term goals Time Frame for Short term goals: 14 visits Short term goal 1: Perform bed mobility and functional transfers independently Short term goal 2: Ambulate 600ft independently Short term goal 3: Ascend/descend 4 steps with HR and supervision Short term goal 4: Demo Good dynamic standing balance to decrease risk of falls Plan Plan Times per week: 5x/wk Specific instructions for Next Treatment: encourage stairs and further distance gait. Current Treatment Recommendations: Strengthening,ROM,Balance Training,Functional Mobility Training,Transfer Training,Gait Training,Stair training,Endurance Training,Home Exercise Program,Safety Education & Training,Patient/Caregiver Education & Training Safety Devices Type of devices: Nurse notified,Call light within reach,Gait belt,Left in bed Restraints Initially in place: No Therapy Time Individual Concurrent Group Co-treatment Time In 810 Time Out 0838 Minutes 27 Timed Code Treatment Minutes: 27 Minutes Liz Rose PT Images from the original note were not included. [facility] Office: [phone] Mikie Rodriguez DO, Theo Lerma DO, Stuart Natarajan DO, Harpal Tran DO, Prashanth Sadler MD, Deana Raza MD, Florencia Canela MD, Tess Ford MD, Yuliana Saenz MD, Leodan Mak MD, Marimar Ren MD, Fabricio Syed DO, Kyle Broussard DO, Juan Driver MD, Sophia Agustin DO, Lyle Woods MD, Jodi Bain MD, Palomo Drummond MD, Radha Avila MD, Alberto Perez MD, Teresa Quintero CNP, Tika Hernandez MARINE EQUIPMENT SALES ENGINEER, Mary Meléndez, MARINE EQUIPMENT SALES ENGINEER, Cathleen Moran, HAIR BLENDER, Abdirahman Bella, MARINE EQUIPMENT SALES ENGINEER, Leslie Rao, MARINE EQUIPMENT SALES ENGINEER, Madalyn Dixon, MARINE EQUIPMENT SALES ENGINEER, Ro Bernard, MARINE EQUIPMENT SALES ENGINEER, Carter Charles, MARINE EQUIPMENT SALES ENGINEER, KO HunterC, Eli Fu, DNP, Razia Figueroa, DNP, Keri Walker, MARINE EQUIPMENT SALES ENGINEER, Sherrie Rea, MARINE EQUIPMENT SALES ENGINEER, Moon Waldrop, MARINE EQUIPMENT SALES ENGINEER, Ethel Soto MARINE EQUIPMENT SALES ENGINEER, Jazzy Javier MARINE EQUIPMENT SALES ENGINEER, Shelli Menon MARINE EQUIPMENT SALES ENGINEER [facility] IN-PATIENT SERVICE [facility] Progress Note 12/18/2021 12:26 PM Name: Tip Ansari Acct: [id number] Room: 0316/0316-01 Day: 5 Admit Date: 12/13/2021 6:34 PM PCP: No primary care provider on file. Code Status: Full Code Subjective: C/C: Weakness, chest pain, shortness of breath Interval History Status: improved. Patient is sitting up comfortably in the bed, denies chest pain, denies shortness of breath, he is sinus tachycardia on the monitor. But patient is asymptomatic. He does complain of insomnia. No other acute issues overnight Brief History: Per my colleague:Tip Ansari is a 41 y.o. male who presents with weakness. He was directly admitted from [facility] Dec 13 for the management of Septic embolism (HCC). Pt has used Heroin intermittently several years Presented to [facility] ED 12/11 with 2 day hx of Nausea, bloody diarrhea stools, weakness, F/C. He quit heroin ~ 12/04 after collapsing w needle in his arm. He also uses mariajuana but denies amphetamine use. Pt reports left ankle pain and swelling since the collapse. He was seen a few days earlier at another ED and reports left hand swelling and redness from a lab draw. Initial work up: WBC 12.6, Na 122, K 2.9, BUN/Cr 11/0.71, LFT's wnl, Ca 7.8, Alb 2, TP 6.3 UDS + methamphetamine & THC (neg opiates). Covid Neg, Stool OB +, stool cultures neg, BC's x 2 + MRSA 12/11 CT chest wo contrast: Bilat multilobar, multifocal scattered nodular opacities, the larger w cavitation, likely septic emboli. 12/12 Cardiac Echo: No gross vegetation, normal EF Started Vanco via rt picc placed 12/11. Bloody Diarrhea has resolved since ATBX started. Blood cultures positive for MRSA GIANFRANCO done on 12/15/2021, showed tricuspid valve vegetation 12/16/21 patient underwent aspiration of the joints by orthopedics. Knee aspiration positive for MRSA Review of Systems: Constitutional: negative for chills, fevers, sweats Respiratory: Negative for cough,, no wheezing Cardiovascular: negative for chest pain, chest pressure/discomfort, lower extremity edema, palpitations Gastrointestinal: negative for abdominal pain, constipation, diarrhea, nausea, vomiting Neurological: negative for dizziness, headache Medications: Allergies: Allergies Allergen Reactions Pcn [Penicillins] Anaphylaxis Current Meds: Scheduled Meds: vancomycin 1,250 mg IntraVENous Q8H sodium chloride 1 g Oral TID WC sodium chloride 500 mL IntraVENous Once vancomycin (VANCOCIN) intermittent dosing (placeholder) Other RX Placeholder melatonin 5 mg Oral Nightly potassium chloride 40 mEq Oral Once sodium chloride flush 5-40 mL IntraVENous 2 times per day enoxaparin 40 mg SubCUTAneous Daily Continuous Infusions: sodium chloride PRN Meds: zolpidem, ALPRAZolam, morphine, albuterol, sodium chloride flush, sodium chloride, potassium chloride OR potassium alternative oral replacement OR potassium chloride, magnesium sulfate, ondansetron OR ondansetron, acetaminophen OR acetaminophen, bisacodyl, ketorolac Data: Past Medical History: has a past medical history of Abscess, Chronic hepatitis C without hepatic coma (HCC), COPD (chronic obstructive pulmonary disease) (HCC), Depression, and Drug addiction (HCC). Social History: reports that he has quit smoking. He has never used smokeless tobacco. He reports current drug use. Drugs: Cocaine, Opiates , Marijuana ([place]), and Methamphetamines (Crystal Meth). He reports that he does not drink alcohol. Family History: Family History Problem Relation Age of Onset Cancer Mother skin No Known Problems Father Diabetes Maternal Grandmother Diabetes Maternal Grandfather Vitals: BP 119/88 Pulse 116 Temp 97.9 F (36.6 C) (Oral) Resp 18 Ht 6' 1 (1.854 m) Wt 172 lb 3.2 oz (78.1 kg) SpO2 97% BMI 22.72 kg/m Temp (24hrs), Av.5 F (36.9 C), Min:97.9 F (36.6 C), Max:99.3 F (37.4 C) No results for input(s): POCGLU in the last 72 hours. I/O (24Hr): Intake/Output Summary (Last 24 hours) at 12/18/2021 1226 Last data filed at 12/18/2021 0147 Gross per 24 hour Intake Output 1025 ml Net -1025 ml Labs: Hematology: Recent Labs 12/16/21 0602 12/17/21 0547 WBC 7.4 6.2 RBC 3.49* 3.36* HGB 9.7* 9.4* HCT 29.2* 28.4* MCV 83.7 84.5 MCH 27.8 28.0 MCHC 33.2 33.1 RDW 15.0* 14.9* PLT 163 188 MPV 10.0 9.9 SEDRATE 32* -- CRP -- 56.1* Chemistry: Recent Labs 12/16/21 0602 12/17/21 0547 12/18/21 0103 NA 128* 131* 128* K 4.1 4.7 4.1 CL 97* 102 100 CO2 23 24 20 GLUCOSE 117* 97 121* BUN 10 9 10 CREATININE 0.53* 0.52* 0.38* ANIONGAP 8* 5* 8* LABGLOM >60 >60 >60 GFRAA >60 >60 >60 CALCIUM 7.6* 7.9* 7.7* No results for input(s): PROT, LABALBU, LABA1C, T9JBJGO, I9AGOXW, FT4, TSH, AST, ALT, LDH, GGT, ALKPHOS, LABGGT, BILITOT, BILIDIR, AMMONIA, AMYLASE, LIPASE, LACTATE, CHOL, HDL, LDLCHOLESTEROL, CHOLHDLRATIO, TRIG, VLDL, [id number], PHENYTOIN, PHENYF, URICACID, POCGLU in the last 72 hours. ABG: Lab Results Component Value Date PHART 7.380 12/16/2020 [id number] 44.5 12/16/2020 PO2ART 94.4 12/16/2020 JLA0ABI 25.7 12/16/2020 NBEA NOT REPORTED 12/16/2020 PBEA 0.3 12/16/2020 [id number] 97.1 12/16/2020 FIO2 28 12/16/2020 Lab Results Component Value Date/Time SPECIAL 20ML R HAND 12/17/2021 05:47 AM Lab Results Component Value Date/Time CULTURE NO GROWTH 1 DAY 12/17/2021 05:47 AM Radiology: XR WRIST LEFT (MIN 3 VIEWS) Result Date: 12/13/2021 Left wrist: No fracture. Left ankle: No fracture. Moderate soft tissue swelling at the site of insertion of Achillis tendon to calcaneus. XR ANKLE LEFT (MIN 3 VIEWS) Result Date: 12/13/2021 Left wrist: No fracture. Left ankle: No fracture. Moderate soft tissue swelling at the site of insertion of Achillis tendon to calcaneus. Physical Examination: General appearance: alert, cooperative and no distress Mental Status: oriented to person, place and time and normal affect Lungs: clear to auscultation bilaterally, normal effort Heart: S1-S2, systolic murmur Abdomen: soft, nontender, nondistended, normal bowel sounds, no masses, hepatomegaly, splenomegaly Extremities: Tenderness in the right shoulder girdle area, also swelling in the left wrist is improving, range of movements is improving, edema in the left ankle is improving as well. No swelling or redness in the arms or legs skin: no gross lesions, rashes, induration Assessment: Hospital Problems Last Modified POA * (Principal) Septic embolism (HCC) 12/14/2021 Yes Heroin abuse (HCC) 12/14/2021 Yes Chronic hepatitis C without hepatic coma (HCC) 12/14/2021 Yes MRSA bacteremia 12/14/2021 Yes Acute respiratory failure with hypoxia (HCC) 12/14/2021 Yes Moderate protein-calorie malnutrition (HCC) (Chronic) 12/14/2021 Yes Bloody diarrhea 12/14/2021 Yes Anemia 12/14/2021 Yes Hypokalemia 12/14/2021 Yes Acute bacterial endocarditis 12/16/2021 Yes Plan: 1. Continue vancomycin per infectious disease, blood culture positive for MRSA 2. GIANFRANCO positive for vegetation on the tricuspid valve, continue vancomycin. Follow ID and cardiology recommendations 3. Wrist pain and ankle pain are improving, status post aspiration by orthopedics, knee aspiration positive for MRSA 4. hyponatremia, continue fluid restriction, start salt tablet 5. Chronic hepatitis C outpatient follow-up with GI 6. Bloody stools resolved outpatient follow-up with GI 7. Substance abuse outpatient rehab 8. Sinus tachycardia could be related to withdrawal as well, will give a bolus of normal saline and monitor 9. training and development manager to help with discharge planning for outpatient IV antibiotics, can be discharged once that is arranged Marimar Ren MD 12/18/2021 12:26 PM Images from the original note were not included. [employer] Adjustable Clerk Progress Note Date: 12/18/2021 Patient name: Tip Ansari Date of admission: 12/13/2021 6:34 PM Date of : 1980 PCP: No primary care provider on file. Reason for Admission: Septic embolism (HCC) [I76] Subjective: Clinical Changes /Abnormalities: Seen and examined , complains of insomnia , no acute CV issues/concerns overnight. Labs, vitals, & tele reviewed. GIANFRANCO from Saturday showing mobile area on tricuspid valve. Sinus tachy at 116 on monitor Review of Systems Medications: Scheduled Meds: vancomycin 1,250 mg IntraVENous Q8H sodium chloride 1 g Oral TID WC vancomycin (VANCOCIN) intermittent dosing (placeholder) Other RX Placeholder melatonin 5 mg Oral Nightly potassium chloride 40 mEq Oral Once sodium chloride flush 5-40 mL IntraVENous 2 times per day enoxaparin 40 mg SubCUTAneous Daily Continuous Infusions: sodium chloride CBC: Recent Labs 12/16/21 0602 12/17/21 0547 WBC 7.4 6.2 HGB 9.7* 9.4* PLT 163 188 BMP: Recent Labs 12/16/21 0602 12/17/21 0547 12/18/21 0103 NA 128* 131* 128* K 4.1 4.7 4.1 CL 97* 102 100 CO2 23 24 20 BUN 10 9 10 CREATININE 0.53* 0.52* 0.38* GLUCOSE 117* 97 121* Hepatic: No results for input(s): AST, ALT, ALB, BILITOT, ALKPHOS in the last 72 hours. Troponin: No results for input(s): TROPHS in the last 72 hours. BNP: No results for input(s): BNP in the last 72 hours. Lipids: No results for input(s): CHOL, HDL in the last 72 hours. Invalid input(s): LDLCALCU INR: No results for input(s): INR in the last 72 hours. Objective: Vitals: BP (!) 130/90 Pulse 110 Temp 99.3 F (37.4 C) (Oral) Resp 16 Ht 6' 1 (1.854 m) Wt 172 lb 3.2 oz (78.1 kg) SpO2 98% BMI 22.72 kg/m General appearance: alert and cooperative with exam HEENT: Head: Normocephalic, no lesions, without obvious abnormality. Neck:no JVD, trachea midline, no adenopathy Lungs: Clear to auscultation Heart: Regular rate and rhythm, s1/s2 auscultated, no murmurs Abdomen: soft, non-tender, bowel sounds active Extremities: no edema Neurologic: not done GIANFRANCO 12/15/21 GIANFRANCO findings: LA: Normal NURIA: No thrombus RA: Normal RV: Normal LV: Normal Estimated LVEF: 55% Aorta: Mild atheromatous disease arch Pericardium: No pericardial effusion Septum: No intracardiac shunt via color Doppler. Valves: Mitral Valve: Structurally normal. Mild regurgitation is identified. No vegetation Aortic Valve: The aortic valve is trileaflet and opens adequately. No vegetation or regurgitiation is identified. Tricuspid valve: Moderate regurgitation is identified. Mobile echodensity noted on the atrial end of tricuspid valve suggestive of vegetation. Pulmonary valve: Normal. No significant regurgitation Tricuspid vegetation noted No thrombus identified. Summary: 1. A GIANFRANCO was performed without complications. 2. Normal LV systolic function with estimated LVEF 50-55% 3. Mobile echogenic density on atrial side of tricuspid valve leaflets suggestive of a vegetation. There is mild to moderate tricuspid regurgitation. 4. No other valvular vegetations seen. Mild MR noted. Assessment / Acute Cardiac Problems: 1. Tricuspid valve vegitation 2. Chronic Hep C 3. Heroin abuse 4. Anemia Patient Active Problem List: Septic embolism (HCC) Heroin abuse (HCC) Chronic hepatitis C without hepatic coma (HCC) MRSA bacteremia Acute respiratory failure with hypoxia (HCC) Moderate protein-calorie malnutrition (HCC) Bloody diarrhea Anemia Hypokalemia Acute bacterial endocarditis Plan of Treatment: 1. GIANFRANCO as above. IV ATB treatment per primary. 2. No other valvular vegetations noted with just mild MR 3. Sinus tachycardia - treat underlying cause as it could be related to fever or withdrawal symptom 4. Continue supportive care. Will f/u on echo after ATB course as OP [employer] [phone] Images from the original note were not included. [facility] - Infectious diseases evaluation admission date 12/13/2021 reason for consultation: Septic pulmonary emboli Impression : Current: Pulmonary septic emboli with cavitary pneumonia MRSA septicemia and TV endocarditis MRSA infected left wrist R knee joint Left ankle joint pain - cx neg R shoulder pain dry tap Heroin use Chronic hepC Allergy severe to PNC Discussion / summary of stay / plan of care Recommendations Continue Vanco for MRSA bacteremia GIANFRANCO 12/18 TV dense vegetations + joint fluid R knee and left wrist - will ask ortho for a lavage of those joints So far BC neg since 12/17 Repeat BC and anticipate 6 weeks iv Ab at DC Will discuss the option of the daptomycin at the infusion center weekly vs dalbavancin weekly Infection Control Recommendations [place] Precautions Contact Isolation Antimicrobial Stewardship Recommendations Simplification of therapy Targeted therapy PK dosing Coordination ofOutpatient Care: Estimated Length of IV antimicrobials: Patient will need Midline / picc Catheter Insertion: Patient will need SNF: Patient will need outpatient wound care: History of Present Illness: Initial history: Tip Ansari is a 41 y.o.-year-old male sent from another hospital because of pulmonary septic emboli, he is a heroin user Went to [place] with shortness of breath and fever, hypoxic started on oxygen. And blood in stools w abd pain. CT 12/11 shows multifocal nodular cavitary lesions likely septic emboli 2D echo 12/12 no clear vegetation Vancomycin started on 12/11 It seems that he had collapsed on 12/04 with a needle in his arm, since then he has had an ankle pain He also has had a left hand swelling with redness, he claims it was from a lab draw. bloody diarrhea and abd pain ultimately Resolved after AB Currently abd non tender L slightly edematous and slightly tender to touch but not red, possibly sprain Interval changes 12/18/2021 Patient Vitals for the past 8 hrs: BP Temp Temp src Pulse Resp SpO2 12/18/21 1140 119/88 97.9 F (36.6 C) Oral 116 18 97 % 12/18/21 0810 (!) 130/90 99.3 F (37.4 C) Oral 110 16 98 % 12/15 Walking comfortable ambulating without any lower back pain management pain Left hand dorsum area remains red tender swollen, patient claims it was only after blood was removed Denies there was an injection of drugs in that area Blood cultures MRSA 12/16 Afebrile, VS stable. On vancomycin for MRSA septicemia. BC + on 12/16. C/o persistent pain of the joints. 12/17 Afebrile, VS stable, tachycardic. Comfortable on room air RR 16 02 sat 95 Joints less tender after aspiration by Ortho on 12-16-21 Rt knee aspiration with MRSA Lt ankle and wrist: No growth / Afebrile, hemodynamically stable, in sinus tachycardia. C/o persistent pain in the joints, left wrist and right knee more than right shoulder and left ankle. He also has had disturbed sleep overnight. He is tolerating oral diet. Aspirate from right knee positive for MRSA. Aspirates from left ankle with no growth to date, left wrist fluid is growing S. Aureus. GIANFRANCO + TV vegetations Will repeat blood culture today and tomorrow. No CBC available to compare. Summary of relevant labs: Labs: WBC 9.1 9.2-->6.2 Platelets 112-->188 BUN 9->10 Cr 0.52->0.38 Micro: Blood culture 12/13 X 2 MRSA 12/16: MRSA x 2 12/18 pending Imaging: C T scan [facility] 12/11 suggestive of multifocal septic emboli with cavitation I have personally reviewed the past medical history, past surgical history, medications, social history, and family history, and I haveupdated the database accordingly. Allergies: Pcn [penicillins] Review of Systems: Review of Systems Constitutional: Negative for activity change, chills and diaphoresis. HENT: Negative for congestion. Eyes: Negative for pain, discharge and itching. Respiratory: Negative for apnea. Cardiovascular: Negative for chest pain. Gastrointestinal: Negative for abdominal distention and abdominal pain. Endocrine: Negative for cold intolerance. Genitourinary: Negative for dysuria. Musculoskeletal: Negative for arthralgias. Skin: Negative for color change. Allergic/Immunologic: Negative for immunocompromised state. Neurological: Negative for dizziness. Hematological: Negative for adenopathy. Psychiatric/Behavioral: Negative for agitation. Physical Examination : Physical Exam Constitutional: Appearance: Normal appearance. He is not ill-appearing. HENT: Head: Normocephalic and atraumatic. Nose: Nose normal. Mouth/Throat: Mouth: Mucous membranes are moist. Eyes: General: No scleral icterus. Conjunctiva/sclera: Conjunctivae normal. Cardiovascular: Rate and Rhythm: Normal rate and regular rhythm. Heart sounds: Normal heart sounds. No friction rub. Pulmonary: Breath sounds: Normal breath sounds. No stridor. Abdominal: General: There is no distension. Palpations: Abdomen is soft. There is no mass. Genitourinary: Comments: No ortiz Musculoskeletal: General: No swelling, tenderness, deformity or signs of injury. Cervical back: Neck supple. No rigidity. Comments: Left hand dorsum pink sore - Left ankle edema and slightly tender Skin: General: Skin is dry. Coloration: Skin is not jaundiced. Neurological: General: No focal deficit present. Mental Status: He is alert and oriented to person, place, and time. Cranial Nerves: No cranial nerve deficit. Psychiatric: Mood and Affect: Mood normal. Thought Content: Thought content normal. Past Medical History: Past Medical History: Diagnosis Date Abscess 2020 left arm + MRSA Chronic hepatitis C without hepatic coma (HCC) COPD (chronic obstructive pulmonary disease) (HCC) Depression Drug addiction (HCC) heroin Past Surgical History: Past Surgical History: Procedure Laterality Date ABSCESS DRAINAGE Left 2019 arm APPENDECTOMY FINGER SURGERY Right 5 th finger tendon repair TYMPANOSTOMY TUBE PLACEMENT Bilateral Medications: vancomycin 1,250 mg IntraVENous Q8H sodium chloride 1 g Oral TID WC vancomycin (VANCOCIN) intermittent dosing (placeholder) Other RX Placeholder melatonin 5 mg Oral Nightly potassium chloride 40 mEq Oral Once sodium chloride flush 5-40 mL IntraVENous 2 times per day enoxaparin 40 mg SubCUTAneous Daily Social History: Social History Socioeconomic History Marital status: Single Spouse name: Not on file Number of children: Not on file Years of education: Not on file Highest education level: Not on file Occupational History Not on file Tobacco Use Smoking status: Former Smoker Smokeless tobacco: Never Used Substance and Sexual Activity Alcohol use: No Drug use: Yes Types: Cocaine, Opiates , Marijuana ([place]), Methamphetamines (Crystal Meth) Comment: quit heroin Nov Sexual activity: Not on file Other Topics Concern Not on file Social History Narrative Not on file Social Determinants of Health Financial Resource Strain: Difficulty of Paying Living Expenses: Not on file Food Insecurity: Worried About Running Out of Food in the Last Year: Not on file Ran Out of Food in the Last Year: Not on file Transportation Needs: Lack of Transportation (Medical): Not on file Lack of Transportation (Non-Medical): Not on file Physical Activity: Days of Exercise per Week: Not on file Minutes of Exercise per Session: Not on file Stress: Feeling of Stress : Not on file Social Connections: Frequency of Communication with Friends and Family: Not on file Frequency of Social Gatherings with Friends and Family: Not on file Attends Bahai Services: Not on file Active Member of Clubs or Organizations: Not on file Attends Club or Organization Meetings: Not on file Marital Status: Not on file Intimate Partner Violence: Fear of Current or Ex-Partner: Not on file Emotionally Abused: Not on file Physically Abused: Not on file Sexually Abused: Not on file Housing Stability: Unable to Pay for Housing in the Last Year: Not on file Number of Places Lived in the Last Year: Not on file Unstable Housing in the Last Year: Not on file Family History: Family History Problem Relation Age of Onset Cancer Mother skin No Known Problems Father Diabetes Maternal Grandmother Diabetes Maternal Grandfather Medical Decision Making: I have independently reviewed/ordered the following labs: CBC with Differential: Recent Labs 12/16/21 0602 12/17/21 0547 WBC 7.4 6.2 HGB 9.7* 9.4* HCT 29.2* 28.4* PLT 163 188 LYMPHOPCT 15* 20* MONOPCT 10 11 BMP: Recent Labs 12/17/21 0547 12/18/21 0103 NA 131* 128* K 4.7 4.1 CL 102 100 CO2 24 20 BUN 9 10 CREATININE 0.52* 0.38* Hepatic Function Panel: No results for input(s): PROT, LABALBU, BILIDIR, IBILI, BILITOT, ALKPHOS, ALT, AST in the last 72 hours. No results for input(s): RPR in the last 72 hours. No results for input(s): HIV in the last 72 hours. No results for input(s): BC in the last 72 hours. Lab Results Component Value Date CREATININE 0.38 12/18/2021 GLUCOSE 121 12/18/2021 Detailed results: Thank you for allowing us to participate in the care of this patient.Please call with questions. This note is created with the assistance of a speech recognition program. While intending to generate adocument that actually reflects the content of the visit, the document can still have some errors including those of syntax and sound a like substitutions which may escape proof reading. It such instances, actual meaningcan be extrapolated by contextual diversion. Danielle Ren MD Internal Medicine Resident, PGY-1 Infectious Disease Service, [facility]. I have discussed the care of the patient, including pertinent history and exam findings, with the resident. I have seen and examined the patient and the hall elements of all parts of the encounter have been performed by me. I agree with the assessment, plan and orders as documented by the resident. Marisol Andrea, Infectious Diseases Progress Note Patient: Tip Ansari Date of : 1980 41 y.o. male Subjective: Patient seen and examined at bedside this morning. Patient states the pains in his right shoulder, left wrist, right knee, and left ankle have improved after aspirate. Is complaining of feeling anxious and the inability to sleep. Expresses desire to be discharged from hospital and go home. No acute issues overnight per nursing. Pain well-controlled . Denies: fever/chills, MTZ, CP, SOB, N/V, dysuria, or numbness/tingling in extremities. Objective: Vitals: 12/17/212049 BP: (!) 123/90 Pulse: 105 Resp: 16 Temp: 98.2 F (36.8 C) SpO2: 96% Gen: NAD, cooperative Cardiovascular: Regular rate Respiratory: no audible wheezing, symmetrical chest expansion MSK: RUE: No area of infection, erythema, swelling. Active ROM: FF 90, Abd 90. Painful, but improved. Med/Rad/Ulnar/AIN/PIN motor intact. Axil/MSC/Med/Rad/Ulnar n sensation intact to light touch. Radial pulse 2+. RLE: 0-130 deg active range of motion at the knee. EHL/FHL/TA/GSC motor intact. Sensation intact to sural/saph/SPN/DPN distribution. DP/PT pulses 2+. LUE: 30-40 deg flexion/extension past neutral. Mild swelling to the dorsum of the wrist. Slight warmth but improved since yesterday. No obvious area of erythema/cellulitis. Med/Rad/Ulnar/AIN/PIN motor intact. Axil/MSC/Med/Rad/Ulnar n sensation intact to light touch. Radial pulse 2+. LLE: Ankle range of motion improved. No obvious areas of erythema/cellulitis. Mild edema present. EHL/FHL/TA/GSC motor intact. Sensation intact to sural/saph/SPN/DPN distribution. DP/PT pulses 2+. Recent Labs 12/17/21 0547 12/17/21 0547 12/18/21 0103 WBC 6.2 -- -- HGB 9.4* -- -- HCT 28.4* -- -- PLT 188 -- -- NA 131* < > 128* K 4.7 < > 4.1 BUN 9 < > 10 CREATININE 0.52* < > 0.38* GLUCOSE 97 < > 121* < > = values in this interval not displayed. Meds: vancomycin, lovenox See rec for complete list Impression: 41 y.o. male with MRSA bacteremia and polyarthralgia being seen for r/o septic arthritis Plan: -Aspirate from right knee positive for staph aureas. Aspirates from left wrist and left ankle with no growth to date. Right shoulder aspirate was negative for fluid. -Given continued clinical improvement, OK to eat today from ortho perspective. -CRP yesterday was 56, trending down from prior. -WHAT BUE/BLE -Antibiotics per infectious disease recommendations for MRSA bacteremia -Pain control: per primary team discretion -Voiding Well -Ice (20 min, 1 hour off) and elevation for edema/pain control -Encourage deep breathing and IS -DVT ppx: EPC. OK for chemical anticoagulation from ortho perspective. -PT/OT -OK to discharge from ortho perspective -Please page Ortho with any questions or concerns Nhung García, PGY-2 Orthopedic Surgery 4:33 AM 12/18/2021 [facility] Pharmacokinetic Monitoring Service - Vancomycin Consulting Provider: Cathleen Moran Indication: MRSA bacteremia Target Concentration: Goal AUC/BERENICE 400-600 mg*hr/L Day of Therapy: 5 Pertinent Laboratory Values: Wt Readings from Last 1 Encounters: 12/17/21 171 lb (77.6 kg) Temp Readings from Last 1 Encounters: 12/17/21 98.2 F (36.8 C) (Oral) Estimated Creatinine Clearance: 286 mL/min (A) (based on SCr of 0.38 mg/dL (L)). Recent Labs 12/16/21 0602 12/16/21 0602 12/17/21 0547 12/18/21 0103 CREATININE 0.53* < > 0.52* 0.38* WBC 7.4 -- 6.2 -- < > = values in this interval not displayed. Recent vancomycin administrations vancomycin (VANCOCIN) 1500 mg in dextrose 5 % 250 mL IVPB (mg) 1,500 mg New Bag 12/18/21 0142 1,500 mg New Bag 12/17/21 1350 1,500 mg New Bag 0209 vancomycin (VANCOCIN) 1750 mg in dextrose 5% 500 mL IVPB (mg) 1,750 mg New Bag 12/16/21 1441 vancomycin (VANCOCIN) 1250 mg in dextrose 5 % 250 mL IVPB (mg) 1,250 mg New Bag 12/16/21 0043 1,250 mg New Bag 12/15/21 1252 Assessment: Date/Time Current Dose Concentration Timing of Concentration (h) AUC 12/18/21 1500 mg every 12 hours 8.6 11 hours 13 min 393 Note: Serum concentrations collected for AUC dosing may appear elevated if collected in close proximity to the dose administered, this is not necessarily an indication of toxicity Plan: Current dosing regimen is sub-therapeutic Increase dose to 1250 mg every 8 hours Pharmacy will continue to monitor patient and adjust therapy as indicated Thank you for the consult, Carter Cormier RPH 12/18/2021 2:29 AM Images from the original note were not included. [facility] - Infectious diseases evaluation Progress Note admission date 12/13/2021 reason for consultation: Septic pulmonary emboli Impression : Current: Pulmonary septic emboli with cavitary pneumonia MRSA septicemia Heroin use Chronic hepC Severe Allergy to PNC Discussion / summary of stay / plan of care Recommendations Continue Vanco for MRSA bacteremia GIANFRANCO to look for vegetations Repeat blood culture still negative Infection Control Recommendations [place] Precautions Contact Isolation Antimicrobial Stewardship Recommendations Simplification of therapy Targeted therapy PK dosing Coordination ofOutpatient Care: Estimated Length of IV antimicrobials: Patient will need Midline / picc Catheter Insertion: Patient will need SNF: Patient will need outpatient wound care: History of Present Illness: INITIAL HISTORY: Tip Ansari is a 41 y.o.-year-old male sent from another hospital because of pulmonary septic emboli, he is a heroin user Went to [place] with shortness of breath and fever, hypoxic started on oxygen. And blood in stools w abd pain. CT 12/11 shows multifocal nodular cavitary lesions likely septic emboli 2D echo 12/12 no clear vegetation Vancomycin started on 12/11 It seems that he had collapsed on 12/04 with a needle in his arm, since then he has had an ankle pain He also has had a left hand swelling with redness, he claims it was from a lab draw. bloody diarrhea and abd pain ultimately Resolved after AB Currently abd non tender L slightly edematous and slightly tender to touch but not red, possibly sprain Interval changes Patient Vitals for the past 8 hrs: BP Temp Temp src Pulse Resp SpO2 12/17/21 0750 122/86 98.6 F (37 C) Oral 100 16 95 % 12/15 Walking, comfortable, ambulating without any lower back pain management pain Left hand dorsum area remains red tender swollen, patient claims it was only after blood was removed Denies there was an injection of drugs in that area Blood cultures MRSA CURRENT EVALUATION : 12/17/2021 Afebrile VS stable Tachycardic Comfortable on room air RR 16 02 sat 95 Joints less tender after aspiration by Ortho on 12-16-21 Rt knee aspiration with MRSA Lt ankle and wrist: No growth Continuing Rx with vancomycin Summary of relevant labs: 12/17/2021 Labs: WBC 9.1 9.2-->6.2 Hb 9.4 Platelets 112-->188 BUN 9 Cr 0.52 Micro: Blood culture 12/13/21 X 2 MRSA 12-16-21: MRSA x 2 12-17-21: pending Wound: 12-16-21 rt knee bursa; MRSA 12-16-21: Lt ankle bursa: No growth 12-16-21 Lt wrist: No growth Imaging: C T scan [facility] 12/11 suggestive of multifocal septic emboli with cavitation I have personally reviewed the past medical history, past surgical history, medications, social history, and family history, and I haveupdated the database accordingly. Allergies: Pcn [penicillins] Review of Systems: Review of Systems Constitutional: Negative for activity change, chills and diaphoresis. HENT: Negative for congestion. Eyes: Negative for pain, discharge and itching. Respiratory: Negative for apnea. Cardiovascular: Negative for chest pain. Gastrointestinal: Negative for abdominal distention and abdominal pain. Endocrine: Negative for cold intolerance. Genitourinary: Negative for dysuria. Musculoskeletal: Negative for arthralgias. Skin: Negative for color change. Allergic/Immunologic: Negative for immunocompromised state. Neurological: Negative for dizziness. Hematological: Negative for adenopathy. Psychiatric/Behavioral: Negative for agitation. Physical Examination : Physical Exam Constitutional: Appearance: Normal appearance. He is not ill-appearing. HENT: Head: Normocephalic and atraumatic. Nose: Nose normal. Mouth/Throat: Mouth: Mucous membranes are moist. Eyes: General: No scleral icterus. Conjunctiva/sclera: Conjunctivae normal. Cardiovascular: Rate and Rhythm: Normal rate and regular rhythm. Heart sounds: Normal heart sounds. No friction rub. Pulmonary: Breath sounds: Normal breath sounds. No stridor. Abdominal: General: There is no distension. Palpations: Abdomen is soft. There is no mass. Genitourinary: Comments: No ortiz Musculoskeletal: General: No swelling, tenderness, deformity or signs of injury. Cervical back: Neck supple. No rigidity. Comments: Left hand dorsum pink sore - Left ankle edema and slightly tender Skin: General: Skin is dry. Coloration: Skin is not jaundiced. Neurological: General: No focal deficit present. Mental Status: He is alert and oriented to person, place, and time. Cranial Nerves: No cranial nerve deficit. Psychiatric: Mood and Affect: Mood normal. Thought Content: Thought content normal. Past Medical History: Past Medical History: Diagnosis Date Abscess 2020 left arm + MRSA Chronic hepatitis C without hepatic coma (HCC) COPD (chronic obstructive pulmonary disease) (HCC) Depression Drug addiction (HCC) heroin Past Surgical History: Past Surgical History: Procedure Laterality Date ABSCESS DRAINAGE Left 2019 arm APPENDECTOMY FINGER SURGERY Right 5 th finger tendon repair TYMPANOSTOMY TUBE PLACEMENT Bilateral Medications: vancomycin 1,500 mg IntraVENous Q12H vancomycin (VANCOCIN) intermittent dosing (placeholder) Other RX Placeholder melatonin 5 mg Oral Nightly potassium chloride 40 mEq Oral Once sodium chloride flush 5-40 mL IntraVENous 2 times per day enoxaparin 40 mg SubCUTAneous Daily Social History: Social History Socioeconomic History Marital status: Single Spouse name: Not on file Number of children: Not on file Years of education: Not on file Highest education level: Not on file Occupational History Not on file Tobacco Use Smoking status: Former Smoker Smokeless tobacco: Never Used Substance and Sexual Activity Alcohol use: No Drug use: Yes Types: Cocaine, Opiates , Marijuana ([place]), Methamphetamines (Crystal Meth) Comment: quit heroin Nov Sexual activity: Not on file Other Topics Concern Not on file Social History Narrative Not on file Social Determinants of Health Financial Resource Strain: Difficulty of Paying Living Expenses: Not on file Food Insecurity: Worried About Running Out of Food in the Last Year: Not on file Ran Out of Food in the Last Year: Not on file Transportation Needs: Lack of Transportation (Medical): Not on file Lack of Transportation (Non-Medical): Not on file Physical Activity: Days of Exercise per Week: Not on file Minutes of Exercise per Session: Not on file Stress: Feeling of Stress : Not on file Social Connections: Frequency of Communication with Friends and Family: Not on file Frequency of Social Gatherings with Friends and Family: Not on file Attends Bahai Services: Not on file Active Member of Clubs or Organizations: Not on file Attends Club or Organization Meetings: Not on file Marital Status: Not on file Intimate Partner Violence: Fear of Current or Ex-Partner: Not on file Emotionally Abused: Not on file Physically Abused: Not on file Sexually Abused: Not on file Housing Stability: Unable to Pay for Housing in the Last Year: Not on file Number of Places Lived in the Last Year: Not on file Unstable Housing in the Last Year: Not on file Family History: Family History Problem Relation Age of Onset Cancer Mother skin No Known Problems Father Diabetes Maternal Grandmother Diabetes Maternal Grandfather Medical Decision Making: I have independently reviewed/ordered the following labs: CBC with Differential: Recent Labs 12/16/21 0602 12/17/21 0547 WBC 7.4 6.2 HGB 9.7* 9.4* HCT 29.2* 28.4* PLT 163 188 LYMPHOPCT 15* 20* MONOPCT 10 11 BMP: Recent Labs 12/16/21 0602 12/17/21 0547 NA 128* 131* K 4.1 4.7 CL 97* 102 CO2 23 24 BUN 10 9 CREATININE 0.53* 0.52* Hepatic Function Panel: Recent Labs 12/15/21513 PROT 5.7* LABALBU 1.9* BILITOT 0.38 ALKPHOS 117 ALT 64* AST 55* No results for input(s): RPR in the last 72 hours. No results for input(s): HIV in the last 72 hours. No results for input(s): BC in the last 72 hours. Lab Results Component Value Date CREATININE 0.52 12/17/2021 GLUCOSE 97 12/17/2021 Detailed results: Thank you for allowing us to participate in the care of this patient.Please call with questions. This note is created with the assistance of a speech recognition program. While intending to generate adocument that actually reflects the content of the visit, the document can still have some errors including those of syntax and sound a like substitutions which may escape proof reading. It such instances, actual meaningcan be extrapolated by contextual diversion. Tariq Dumont MD Office: [facility] / office [phone] Images from the original note were not included. [employer] Adjustable Clerk Progress Note Date: 12/17/2021 Patient name: Tip Ansari Date of admission: 12/13/2021 6:34 PM Date of : 1980 PCP: No primary care provider on file. Reason for Admission: Septic embolism (HCC) [I76] Subjective: Clinical Changes /Abnormalities:no acute CV issues/concerns overnight. Labs, vitals, & tele reviewed. GIANFRANCO from Saturday showing mobile area on tricuspid valve. Review of Systems Medications: Scheduled Meds: vancomycin 1,500 mg IntraVENous Q12H vancomycin (VANCOCIN) intermittent dosing (placeholder) Other RX Placeholder melatonin 5 mg Oral Nightly potassium chloride 40 mEq Oral Once sodium chloride flush 5-40 mL IntraVENous 2 times per day enoxaparin 40 mg SubCUTAneous Daily Continuous Infusions: sodium chloride CBC: Recent Labs 12/15/21 0514 12/16/21 0602 12/17/21 0547 WBC 8.3 7.4 6.2 HGB 9.8* 9.7* 9.4* PLT 140 163 188 BMP: Recent Labs 12/15/21 0514 12/16/21 0602 12/17/21 0547 NA 129* 128* 131* K 4.2 4.1 4.7 CL 100 97* 102 CO2 22 23 24 BUN 9 10 9 CREATININE 0.55* 0.53* 0.52* GLUCOSE 111* 117* 97 Hepatic: Recent Labs 12/15/21 0514 AST 55* ALT 64* BILITOT 0.38 ALKPHOS 117 Troponin: No results for input(s): TROPHS in the last 72 hours. BNP: No results for input(s): BNP in the last 72 hours. Lipids: No results for input(s): CHOL, HDL in the last 72 hours. Invalid input(s): LDLCALCU INR: No results for input(s): INR in the last 72 hours. Objective: Vitals: BP 122/86 Pulse 100 Temp 98.6 F (37 C) (Oral) Resp 16 Ht 6' 1 (1.854 m) Wt 171 lb (77.6 kg) SpO2 95% BMI 22.56 kg/m General appearance: alert and cooperative with exam HEENT: Head: Normocephalic, no lesions, without obvious abnormality. Neck:no JVD, trachea midline, no adenopathy Lungs: Clear to auscultation Heart: Regular rate and rhythm, s1/s2 auscultated, no murmurs Abdomen: soft, non-tender, bowel sounds active Extremities: no edema Neurologic: not done GIANFRANCO 12/15/21 GIANFRANCO findings: LA: Normal NURIA: No thrombus RA: Normal RV: Normal LV: Normal Estimated LVEF: 55% Aorta: Mild atheromatous disease arch Pericardium: No pericardial effusion Septum: No intracardiac shunt via color Doppler. Valves: Mitral Valve: Structurally normal. Mild regurgitation is identified. No vegetation Aortic Valve: The aortic valve is trileaflet and opens adequately. No vegetation or regurgitiation is identified. Tricuspid valve: Moderate regurgitation is identified. Mobile echodensity noted on the atrial end of tricuspid valve suggestive of vegetation. Pulmonary valve: Normal. No significant regurgitation Tricuspid vegetation noted No thrombus identified. Summary: 1. A GIANFRANCO was performed without complications. 2. Normal LV systolic function with estimated LVEF 50-55% 3. Mobile echogenic density on atrial side of tricuspid valve leaflets suggestive of a vegetation. There is mild to moderate tricuspid regurgitation. 4. No other valvular vegetations seen. Mild MR noted. Assessment / Acute Cardiac Problems: 1. Tricuspid valve vegitation 2. Chronic Hep C 3. Heroin abuse 4. Anemia Patient Active Problem List: Septic embolism (HCC) Heroin abuse (HCC) Chronic hepatitis C without hepatic coma (HCC) MRSA bacteremia Acute respiratory failure with hypoxia (HCC) Moderate protein-calorie malnutrition (HCC) Bloody diarrhea Anemia Hypokalemia Acute bacterial endocarditis Plan of Treatment: 1. GIANFRANCO as above. IV ATB treatment per primary. 2. No other valvular vegetations noted with just mild MR 3. Continue supportive care. 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 [phone] Orthopedic Progress Note Patient: Tip Ansari, 41 y.o. male Date of : 1980 Subjective: Patient seen and examined. No complaints or concerns. Joints that were aspirated yesterday feel much better today. Pain controlled on current regimen. No acute issues overnight. Denies fever, MTZ, CP, SOB, N/V. Has been NPO since midnight while waiting for aspirate labs to return. Objective: Vitals: 12/17/21 0750 BP: 122/86 Pulse: 100 Resp: 16 Temp: 98.6 F (37 C) SpO2: 95% Gen: NAD, cooperative Cardiovascular: Regular rate Respiratory: Symmetric chest rise. No accessory muscle use RUE: No area of infection, erythema, swelling. Active ROM: FF 90, Abd 90. Painful, but improved. Med/Rad/Ulnar/AIN/PIN motor intact. Axil/MSC/Med/Rad/Ulnar n sensation intact to light touch. Radial pulse 2+. RLE: 0-130 deg active range of motion. Pain improved. EHL/FHL/TA/GSC motor intact. Sensation intact to sural/saph/SPN/DPN distribution. DP/PT pulses 2+. LUE: 30-40 deg flexion/extension past neutral. Mild swelling to the dorsum of the wrist. Slight warmth but improved since yesterday. No obvious area of erythema/cellulitis. Med/Rad/Ulnar/AIN/PIN motor intact. Axil/MSC/Med/Rad/Ulnar n sensation intact to light touch. Radial pulse 2+. LLE: Ankle range of motion improved. Pain reduced since aspiration. No obvious areas of erythema/cellulitis. Mild edema present. EHL/FHL/TA/GSC motor intact. Sensation intact to sural/saph/SPN/DPN distribution. DP/PT pulses 2+. Recent Labs 12/17/21 0547 WBC 6.2 HGB 9.4* HCT 28.4* PLT 188 NA 131* K 4.7 BUN 9 CREATININE 0.52* GLUCOSE 97 Anticoag: Lovenox Abx: Vanc Impression/Plan: 41 y.o. male with MRSA bacteremia and polyarthralgia: 1. R/o septic arthritis - Aspirates with cell counts not concerning for septic joints. Plan to follow cultures [place] - WBAT to all extremities - Ok to remove the bandaids placed after aspiration - ID following. Appreciate recommendations - Ok to eat from ortho standpoint. No plan for surgical intervention. Will reconsider if aspirates grow bacteria - Abx per ID recommendations - Continue medical management per primary team - PT/OT - Please reach out to ortho resident clerk travel reservations with any questions - Follow up w/ Dr. Barajas as needed outpatient . Images from the original note were not included. [facility] Office: [phone] Mikie Rodriguez DO, Theo Lerma DO, Stuart Natarajan DO, Harpal Tran DO, Prashanth Sadler MD, Deana Raza MD, Florenica Canela MD, Tess Ford MD, Yuliana Saenz MD, Leodna Mak MD, Marimar Ren MD, Fabricio Syed DO, Kyle Broussard DO, Juan Driver MD, Sophia Agustin DO, Lyle Woods MD, Jodi Bain MD, Palomo Drummond MD, Radha Avila MD, Alberto Perez MD, Teresa Quintero, MARINE EQUIPMENT SALES ENGINEER, Tika Hernandez, MARINE EQUIPMENT SALES ENGINEER, Mary Meléndez, MARINE EQUIPMENT SALES ENGINEER, Cathleen Moran, HAIR BLENDER, Abdirahman Bella, MARINE EQUIPMENT SALES ENGINEER, Leslie Rao, MARINE EQUIPMENT SALES ENGINEER, Madalyn Dixon, MARINE EQUIPMENT SALES ENGINEER, Ro Bernard, MARINE EQUIPMENT SALES ENGINEER, Carter Charles, MARINE EQUIPMENT SALES ENGINEER, Mckayla Abraham PA-C, Eli Fu, DNP, Razia Figueroa, DNP, Keri Walker, MARINE EQUIPMENT SALES ENGINEER, Sherrie Rea, MARINE EQUIPMENT SALES ENGINEER, Moon Waldrop, MARINE EQUIPMENT SALES ENGINEER, Ethel Soto, MARINE EQUIPMENT SALES ENGINEER, Jazzy Javier, MARINE EQUIPMENT SALES ENGINEER, Shelli Menon, MARINE EQUIPMENT SALES ENGINEER [facility] IN-PATIENT SERVICE [facility] Progress Note 12/17/2021 12:05 PM Name: Tip Ansari Acct: [id number] Room: [address] [place] [address] Day: 4 Admit Date: 12/13/2021 6:34 PM PCP: No primary care provider on file. Code Status: Full Code Subjective: C/C: Weakness, chest pain, shortness of breath Interval History Status: improved. Patient is hemodynamically stable, he underwent aspiration of his joints by orthopedic, currently feels better Brief History: Per my colleague:Tip Ansari is a 41 y.o. male who presents with weakness. He was directly admitted from [facility] Dec 13 for the management of Septic embolism (HCC). Pt has used Heroin intermittently several years Presented to [facility] ED 12/11 with 2 day hx of Nausea, bloody diarrhea stools, weakness, F/C. He quit heroin ~ 12/04 after collapsing w needle in his arm. He also uses mariajuana but denies amphetamine use. Pt reports left ankle pain and swelling since the collapse. He was seen a few days earlier at another ED and reports left hand swelling and redness from a lab draw. Initial work up: WBC 12.6, Na 122, K 2.9, BUN/Cr 11/0.71, LFT's wnl, Ca 7.8, Alb 2, TP 6.3 UDS + methamphetamine & THC (neg opiates). Covid Neg, Stool OB +, stool cultures neg, BC's x 2 + MRSA 12/11 CT chest wo contrast: Bilat multilobar, multifocal scattered nodular opacities, the larger w cavitation, likely septic emboli. 12/12 Cardiac Echo: No gross vegetation, normal EF Started Vanco via rt picc placed 12/11. Bloody Diarrhea has resolved since ATBX started. Blood cultures positive for MRSA GIANFRANCO done on 12/15/2021, showed tricuspid valve vegetation 12/16/21 patient underwent aspiration of the joints by orthopedics. Review of Systems: Constitutional: negative for chills, fevers, sweats Respiratory: Positive for cough that is improving, no wheezing Cardiovascular: negative for chest pain, chest pressure/discomfort, lower extremity edema, palpitations Gastrointestinal: negative for abdominal pain, constipation, diarrhea, nausea, vomiting Neurological: negative for dizziness, headache Medications: Allergies: Allergies Allergen Reactions Pcn [Penicillins] Anaphylaxis Current Meds: Scheduled Meds: vancomycin 1,500 mg IntraVENous Q12H vancomycin (VANCOCIN) intermittent dosing (placeholder) Other RX Placeholder melatonin 5 mg Oral Nightly potassium chloride 40 mEq Oral Once sodium chloride flush 5-40 mL IntraVENous 2 times per day enoxaparin 40 mg SubCUTAneous Daily Continuous Infusions: sodium chloride PRN Meds: ALPRAZolam, morphine, albuterol, sodium chloride flush, sodium chloride, potassium chloride OR potassium alternative oral replacement OR potassium chloride, magnesium sulfate, ondansetron OR ondansetron, acetaminophen OR acetaminophen, bisacodyl, ketorolac Data: Past Medical History: has a past medical history of Abscess, Chronic hepatitis C without hepatic coma (HCC), COPD (chronic obstructive pulmonary disease) (HCC), Depression, and Drug addiction (HCC). Social History: reports that he has quit smoking. He has never used smokeless tobacco. He reports current drug use. Drugs: Cocaine, Opiates , Marijuana ([place]), and Methamphetamines (Crystal Meth). He reports that he does not drink alcohol. Family History: Family History Problem Relation Age of Onset Cancer Mother skin No Known Problems Father Diabetes Maternal Grandmother Diabetes Maternal Grandfather Vitals: BP 122/86 Pulse 100 Temp 98.6 F (37 C) (Oral) Resp 16 Ht 6' 1 (1.854 m) Wt 171 lb (77.6 kg) SpO2 95% BMI 22.56 kg/m Temp (24hrs), Av.8 F (37.7 C), Min:98.6 F (37 C), Max:101.7 F (38.7 C) No results for input(s): POCGLU in the last 72 hours. I/O (24Hr): Intake/Output Summary (Last 24 hours) at 12/17/2021 1205 Last data filed at 12/17/2021 0620 Gross per 24 hour Intake Output 1850 ml Net -1850 ml Labs: Hematology: Recent Labs 12/15/21 0512/16/21 0612/17/21 0547 WBC 8.3 7.4 6.2 RBC 3.52* 3.49* 3.36* HGB 9.8* 9.7* 9.4* HCT 29.7* 29.2* 28.4* MCV 84.4 83.7 84.5 MCH 27.8 27.8 28.0 MCHC 33.0 33.2 33.1 RDW 15.0* 15.0* 14.9* PLT 140 163 188 MPV 10.5 10.0 9.9 SEDRATE -- 32* -- CRP 62.9* -- 56.1* Chemistry: Recent Labs 12/15/2151312/16/21 0612/17/21 0547 NA 129* 128* 131* K 4.2 4.1 4.7 CL 100 97* 102 CO2 22 23 24 GLUCOSE 111* 117* 97 BUN 9 10 9 CREATININE 0.55* 0.53* 0.52* ANIONGAP 7* 8* 5* LABGLOM >60 >60 >60 GFRAA >60 >60 >60 CALCIUM 7.0* 7.6* 7.9* Recent Labs 12/15/21513 PROT 5.7* LABALBU 1.9* AST 55* ALT 64* ALKPHOS 117 BILITOT 0.38 ABG: Lab Results Component Value Date PHART 7.380 12/16/2020 [id number] 44.5 12/16/2020 PO2ART 94.4 12/16/2020 [id number] 25.7 12/16/2020 NBEA NOT REPORTED 12/16/2020 PBEA 0.3 12/16/2020 [id number] 97.1 12/16/2020 FIO2 28 12/16/2020 Lab Results Component Value Date/Time SPECIAL 20ML R HAND 12/17/2021 05:47 AM Lab Results Component Value Date/Time CULTURE NO GROWTH <24 HRS 12/17/2021 05:47 AM Radiology: XR WRIST LEFT (MIN 3 VIEWS) Result Date: 12/13/2021 Left wrist: No fracture. Left ankle: No fracture. Moderate soft tissue swelling at the site of insertion of Achillis tendon to calcaneus. XR ANKLE LEFT (MIN 3 VIEWS) Result Date: 12/13/2021 Left wrist: No fracture. Left ankle: No fracture. Moderate soft tissue swelling at the site of insertion of Achillis tendon to calcaneus. Physical Examination: General appearance: alert, cooperative and no distress Mental Status: oriented to person, place and time and normal affect Lungs: clear to auscultation bilaterally, normal effort Heart: S1-S2, systolic murmur Abdomen: soft, nontender, nondistended, normal bowel sounds, no masses, hepatomegaly, splenomegaly Extremities: Tenderness in the right shoulder girdle area, also swelling in the left wrist is improving, range of movements is improving, edema in the left ankle is improving as well. No swelling or redness in the arms or legs skin: no gross lesions, rashes, induration Assessment: Hospital Problems Last Modified POA * (Principal) Septic embolism (HCC) 12/14/2021 Yes Heroin abuse (HCC) 12/14/2021 Yes Chronic hepatitis C without hepatic coma (HCC) 12/14/2021 Yes MRSA bacteremia 12/14/2021 Yes Acute respiratory failure with hypoxia (HCC) 12/14/2021 Yes Moderate protein-calorie malnutrition (HCC) (Chronic) 12/14/2021 Yes Bloody diarrhea 12/14/2021 Yes Anemia 12/14/2021 Yes Hypokalemia 12/14/2021 Yes Acute bacterial endocarditis 12/16/2021 Yes Plan: 1. Continue vancomycin per infectious disease, blood culture positive for MRSA 2. GIANFRANCO positive for vegetation on the tricuspid valve, continue vancomycin. Follow ID and cardiology recommendations 3. Wrist pain and ankle pain are improving, status post aspiration by orthopedics, 4. hyponatremia, continue fluid restriction 5. Chronic hepatitis C outpatient follow-up with GI 6. Bloody stools resolved outpatient follow-up with GI 7. Substance abuse outpatient rehab 8. training and development manager to help with discharge planning for outpatient IV antibiotics Marimar Ren MD 12/17/2021 12:05 PM Images from the original note were not included. [facility] - Infectious diseases evaluation admission date 12/13/2021 reason for consultation: Septic pulmonary emboli Impression : Current: Pulmonary septic emboli with cavitary pneumonia MRSA septicemia Heroin use Chronic hepC Allergy severe to PNC Other: Discussion / summary of stay / plan of care Recommendations Continue Vanco for MRSA bacteremia GIANFRANCO to look for vegetations Repeat blood culture still negative Infection Control Recommendations [place] Precautions Contact Isolation Antimicrobial Stewardship Recommendations Simplification of therapy Targeted therapy PK dosing Coordination ofOutpatient Care: Estimated Length of IV antimicrobials: Patient will need Midline / picc Catheter Insertion: Patient will need SNF: Patient will need outpatient wound care: History of Present Illness: Initial history: Tip Ansari is a 41 y.o.-year-old male sent from another hospital because of pulmonary septic emboli, he is a heroin user Went to [place] with shortness of breath and fever, hypoxic started on oxygen. And blood in stools w abd pain. CT 12/11 shows multifocal nodular cavitary lesions likely septic emboli 2D echo 12/12 no clear vegetation Vancomycin started on 12/11 It seems that he had collapsed on 12/04 with a needle in his arm, since then he has had an ankle pain He also has had a left hand swelling with redness, he claims it was from a lab draw. bloody diarrhea and abd pain ultimately Resolved after AB Currently abd non tender L slightly edematous and slightly tender to touch but not red, possibly sprain Interval changes 12/16/2021 Patient Vitals for the past 8 hrs: BP Temp Temp src Pulse Resp SpO2 12/16/211941 108/70 99.1 F (37.3 C) Oral 108 18 98 % 2/4 Walking comfortable ambulating without any lower back pain management pain Left hand dorsum area remains red tender swollen, patient claims it was only after blood was removed Denies there was an injection of drugs in that area Blood cultures MRSA Summary of relevant labs: Labs: WBC 9.1 9.2 Platelets 112 Micro: Blood culture 2/2 X 2 MRSA Imaging: C T scan [facility] 12/11 suggestive of multifocal septic emboli with cavitation I have personally reviewed the past medical history, past surgical history, medications, social history, and family history, and I haveupdated the database accordingly. Allergies: Pcn [penicillins] Review of Systems: Review of Systems Constitutional: Negative for activity change, chills and diaphoresis. HENT: Negative for congestion. Eyes: Negative for pain, discharge and itching. Respiratory: Negative for apnea. Cardiovascular: Negative for chest pain. Gastrointestinal: Negative for abdominal distention and abdominal pain. Endocrine: Negative for cold intolerance. Genitourinary: Negative for dysuria. Musculoskeletal: Negative for arthralgias. Skin: Negative for color change. Allergic/Immunologic: Negative for immunocompromised state. Neurological: Negative for dizziness. Hematological: Negative for adenopathy. Psychiatric/Behavioral: Negative for agitation. Physical Examination : Physical Exam Constitutional: Appearance: Normal appearance. He is not ill-appearing. HENT: Head: Normocephalic and atraumatic. Nose: Nose normal. Mouth/Throat: Mouth: Mucous membranes are moist. Eyes: General: No scleral icterus. Conjunctiva/sclera: Conjunctivae normal. Cardiovascular: Rate and Rhythm: Normal rate and regular rhythm. Heart sounds: Normal heart sounds. No friction rub. Pulmonary: Breath sounds: Normal breath sounds. No stridor. Abdominal: General: There is no distension. Palpations: Abdomen is soft. There is no mass. Genitourinary: Comments: No ortiz Musculoskeletal: General: No swelling, tenderness, deformity or signs of injury. Cervical back: Neck supple. No rigidity. Comments: Left hand dorsum pink sore - Left ankle edema and slightly tender Skin: General: Skin is dry. Coloration: Skin is not jaundiced. Neurological: General: No focal deficit present. Mental Status: He is alert and oriented to person, place, and time. Cranial Nerves: No cranial nerve deficit. Psychiatric: Mood and Affect: Mood normal. Thought Content: Thought content normal. Past Medical History: Past Medical History: Diagnosis Date Abscess 2020 left arm + MRSA Chronic hepatitis C without hepatic coma (HCC) COPD (chronic obstructive pulmonary disease) (HCC) Depression Drug addiction (HCC) heroin Past Surgical History: Past Surgical History: Procedure Laterality Date ABSCESS DRAINAGE Left 2020 arm APPENDECTOMY FINGER SURGERY Right 5 th finger tendon repair TYMPANOSTOMY TUBE PLACEMENT Bilateral Medications: [START ON 12/17/2021] vancomycin 1,500 mg IntraVENous Q12H vancomycin (VANCOCIN) intermittent dosing (placeholder) Other RX Placeholder melatonin 5 mg Oral Nightly potassium chloride 40 mEq Oral Once sodium chloride flush 5-40 mL IntraVENous 2 times per day enoxaparin 40 mg SubCUTAneous Daily Social History: Social History Socioeconomic History Marital status: Single Spouse name: Not on file Number of children: Not on file Years of education: Not on file Highest education level: Not on file Occupational History Not on file Tobacco Use Smoking status: Former Smoker Smokeless tobacco: Never Used Substance and Sexual Activity Alcohol use: No Drug use: Yes Types: Cocaine, Opiates , Marijuana ([place]), Methamphetamines (Crystal Meth) Comment: quit heroin Nov Sexual activity: Not on file Other Topics Concern Not on file Social History Narrative Not on file Social Determinants of Health Financial Resource Strain: Difficulty of Paying Living Expenses: Not on file Food Insecurity: Worried About Running Out of Food in the Last Year: Not on file Ran Out of Food in the Last Year: Not on file Transportation Needs: Lack of Transportation (Medical): Not on file Lack of Transportation (Non-Medical): Not on file Physical Activity: Days of Exercise per Week: Not on file Minutes of Exercise per Session: Not on file Stress: Feeling of Stress : Not on file Social Connections: Frequency of Communication with Friends and Family: Not on file Frequency of Social Gatherings with Friends and Family: Not on file Attends Bahai Services: Not on file Active Member of Clubs or Organizations: Not on file Attends Club or Organization Meetings: Not on file Marital Status: Not on file Intimate Partner Violence: Fear of Current or Ex-Partner: Not on file Emotionally Abused: Not on file Physically Abused: Not on file Sexually Abused: Not on file Housing Stability: Unable to Pay for Housing in the Last Year: Not on file Number of Places Lived in the Last Year: Not on file Unstable Housing in the Last Year: Not on file Family History: Family History Problem Relation Age of Onset Cancer Mother skin No Known Problems Father Diabetes Maternal Grandmother Diabetes Maternal Grandfather Medical Decision Making: I have independently reviewed/ordered the following labs: CBC with Differential: Recent Labs 12/15/21 0514 12/16/21 0602 WBC 8.3 7.4 HGB 9.8* 9.7* HCT 29.7* 29.2* PLT 140 163 LYMPHOPCT 15* 15* MONOPCT 10 10 BMP: Recent Labs 12/15/21 0514 12/16/21 0602 NA 129* 128* K 4.2 4.1 CL 100 97* CO2 22 23 BUN 9 10 CREATININE 0.55* 0.53* Hepatic Function Panel: Recent Labs 12/15/21513 PROT 5.7* LABALBU 1.9* BILITOT 0.38 ALKPHOS 117 ALT 64* AST 55* No results for input(s): RPR in the last 72 hours. No results for input(s): HIV in the last 72 hours. No results for input(s): BC in the last 72 hours. Lab Results Component Value Date CREATININE 0.53 12/16/2021 GLUCOSE 117 12/16/2021 Detailed results: Thank you for allowing us to participate in the care of this patient.Please call with questions. This note is created with the assistance of a speech recognition program. While intending to generate adocument that actually reflects the content of the visit, the document can still have some errors including those of syntax and sound a like substitutions which may escape proof reading. It such instances, actual meaningcan be extrapolated by contextual diversion. Zulema Ren MD Internal Medicine PGY1 Tariq Dumont MD Office: [facility] / office [phone] ATTESTATION: I have discussed the case, including pertinent history and exam findings with the residents and students. I have seen and examined the patient and the hall elements of the encounter have been performed by me. I was present when the student obtained his information or examined the patient. I have reviewed the laboratory data, other diagnostic studies and discussed them with the residents. I have updated the medical record where necessary. I agree with the assessment, plan and orders as documented by the resident/ student. Tariq Dumont MD. Images from the original note were not included. Pharmacy Vancomycin Consult Vancomycin Day: 3 Current indication: MRSA bacteremia Recent Labs 12/15/21 0514 12/16/21 0602 BUN 9 10 CREATININE 0.55* 0.53* WBC 8.3 7.4 Intake/Output Summary (Last 24 hours) at 12/16/2021 1313 Last data filed at 12/15/2021 1753 Gross per 24 hour Intake 482 ml Output -- Net 482 ml Culture Date Source Results 12/13 Blood x2 MRSA Estimated Creatinine Clearance: 204 mL/min (A) (based on SCr of 0.53 mg/dL (L)). Assessment/Plan: - SCr is stable - Based on level assessment from yesterday (true trough below goal) and indication will give Vancomycin 1750 mg x1 now then start Vancomycin 1500 mg q12h - Will continue to monitor and follow Thank you, Paco Fraser, PharmD, 12/16/2021 1:29 PM Images from the original note were not included. [facility] Office: [phone] Mikie Rodriguez DO, Theo Lerma DO, Stuart Natarajan DO, Harpal Tran DO, Prashanth Sadler MD, Deana Raza MD, Florencia Canela MD, Tess Ford MD, Yuliana Saenz MD, Leodan Mak MD, Marimar Ren MD, Fabricio Syed DO, Kyle Broussard DO, Juan Driver MD, Sophia Agustin DO, Lyle Woods MD, Jodi Bain MD, Palomo Drummond MD, Radha Avila MD, Alberto Perez MD, Teresa Quintero CNP, Tika Hernandez MARINE EQUIPMENT SALES ENGINEER, Mary Meléndez MARINE EQUIPMENT SALES ENGINEER, Cathleen Moran, HAIR BLENDER, Abdirahman Bella, MARINE EQUIPMENT SALES ENGINEER, Leslie Rao, MARINE EQUIPMENT SALES ENGINEER, Madalyn Dixon, MARINE EQUIPMENT SALES ENGINEER, Ro Bernard, MARINE EQUIPMENT SALES ENGINEER, Carter Charles, MARINE EQUIPMENT SALES ENGINEER, Mckayla Abraham PA-C, Eli Fu DNP, Razia Figueroa DNP, Keri Walker, PABLO, Sherrie Rea, PABLO, Moon Waldrop, PABLO, Ethel Soto CNP, Jazzy Javier CNP, Shelli Menon CNP [facility] IN-PATIENT SERVICE [facility] Progress Note 12/16/2021 12:34 PM Name: Tip Ansari Acct: [id number] Room: [address] [place] [address] IP Day: 3 Admit Date: 12/13/2021 6:34 PM PCP: No primary care provider on file. Code Status: Full Code Subjective: C/C: Weakness, chest pain, shortness of breath Interval History Status: improved. Patient says he is feeling better. He is hand is improving, his ankle pain and shoulder pain are improving, GIANFRANCO was positive for vegetation on tricuspid valve. Denies other acute issues. Brief History: Per my colleague:Tip Ansari is a 41 y.o. male who presents with weakness. He was directly admitted from [facility] Dec 13 for the management of Septic embolism (HCC). Pt has used Heroin intermittently several years Presented to [facility] ED 12/11 with 2 day hx of Nausea, bloody diarrhea stools, weakness, F/C. He quit heroin ~ 12/04 after collapsing w needle in his arm. He also uses mariajuana but denies amphetamine use. Pt reports left ankle pain and swelling since the collapse. He was seen a few days earlier at another ED and reports left hand swelling and redness from a lab draw. Initial work up: WBC 12.6, Na 122, K 2.9, BUN/Cr 11/0.71, LFT's wnl, Ca 7.8, Alb 2, TP 6.3 UDS + methamphetamine & THC (neg opiates). Covid Neg, Stool OB +, stool cultures neg, BC's x 2 + MRSA 12/11 CT chest wo contrast: Bilat multilobar, multifocal scattered nodular opacities, the larger w cavitation, likely septic emboli. 12/12 Cardiac Echo: No gross vegetation, normal EF Started Vanco via rt picc placed 12/11. Bloody Diarrhea has resolved since ATBX started. GIANFRANCO done on 12/15/2021, showed tricuspid valve vegetation Review of Systems: Constitutional: negative for chills, fevers, sweats Respiratory: Positive for cough that is improving, no wheezing Cardiovascular: negative for chest pain, chest pressure/discomfort, lower extremity edema, palpitations Gastrointestinal: negative for abdominal pain, constipation, diarrhea, nausea, vomiting Neurological: negative for dizziness, headache Medications: Allergies: Allergies Allergen Reactions Pcn [Penicillins] Anaphylaxis Current Meds: Scheduled Meds: vancomycin (VANCOCIN) intermittent dosing (placeholder) Other RX Placeholder vancomycin 1,250 mg IntraVENous Q12H melatonin 5 mg Oral Nightly potassium chloride 40 mEq Oral Once sodium chloride flush 5-40 mL IntraVENous 2 times per day enoxaparin 40 mg SubCUTAneous Daily Continuous Infusions: sodium chloride 75 mL/hr at 12/16/21 0727 sodium chloride PRN Meds: albuterol, sodium chloride flush, sodium chloride, potassium chloride OR potassium alternative oral replacement OR potassium chloride, magnesium sulfate, ondansetron OR ondansetron, acetaminophen OR acetaminophen, bisacodyl, ketorolac Data: Past Medical History: has a past medical history of Abscess, Chronic hepatitis C without hepatic coma (HCC), COPD (chronic obstructive pulmonary disease) (HCC), Depression, and Drug addiction (HCC). Social History: reports that he has quit smoking. He has never used smokeless tobacco. He reports current drug use. Drugs: Cocaine, Opiates , Marijuana ([place]), and Methamphetamines (Crystal Meth). He reports that he does not drink alcohol. Family History: Family History Problem Relation Age of Onset Cancer Mother skin No Known Problems Father Diabetes Maternal Grandmother Diabetes Maternal Grandfather Vitals: BP 107/77 Pulse 115 Temp 98.2 F (36.8 C) (Oral) Resp 16 Ht 6' 1 (1.854 m) Wt 170 lb (77.1 kg) SpO2 97% BMI 22.43 kg/m Temp (24hrs), Av.5 F (36.9 C), Min:98.2 F (36.8 C), Max:98.8 F (37.1 C) No results for input(s): POCGLU in the last 72 hours. I/O (24Hr): Intake/Output Summary (Last 24 hours) at 12/16/2021 1234 Last data filed at 12/15/2021 1753 Gross per 24 hour Intake 482 ml Output Net 482 ml Labs: Hematology: Recent Labs 12/13/21191312/13/21210512/13/21210512/14/2155112/15/21 0512/16/21 0602 WBC -- 9.1 < > 9.2 8.3 7.4 RBC -- 3.57* < > 3.69* 3.52* 3.49* HGB -- 10.1* < > 10.3* 9.8* 9.7* HCT -- 28.9* < > 30.8* 29.7* 29.2* MCV -- 81.0* < > 83.5 84.4 83.7 MCH -- 28.3 < > 27.9 27.8 27.8 MCHC -- 34.9* < > 33.4 33.0 33.2 RDW -- 14.5* < > 14.7* 15.0* 15.0* PLT -- See Reflexed IPF Result < > 150 140 163 MPV -- NOT REPORTED < > 10.8 10.5 10.0 CRP 110.3* -- -- -- 62.9* -- INR -- -- -- 1.2 -- -- DDIMER -- 2.63 -- -- -- -- < > = values in this interval not displayed. Chemistry: Recent Labs 12/13/21191312/13/21191312/14/2155112/15/21 0512/16/21 0602 NA 135 < > 135 129* 128* K 3.4* < > 3.6* 4.2 4.1 CL 104 < > 106 100 97* CO2 22 < > 23 22 23 GLUCOSE 121* < > 111* 111* 117* BUN 9 < > 13 9 10 CREATININE 0.56* < > 0.55* 0.55* 0.53* MG 1.9 -- -- -- -- ANIONGAP 9 < > 6* 7* 8* LABGLOM >60 < > >60 >60 >60 GFRAA >60 < > >60 >60 >60 CALCIUM 7.4* < > 7.6* 7.0* 7.6* TROPHS <6 -- -- -- -- < > = values in this interval not displayed. Recent Labs 12/15/21 0514 PROT 5.7* LABALBU 1.9* AST 55* ALT 64* ALKPHOS 117 BILITOT 0.38 ABG: Lab Results Component Value Date PHART 7.380 12/16/2020 [id number] 44.5 12/16/2020 PO2ART 94.4 12/16/2020 [id number] 25.7 12/16/2020 NBEA NOT REPORTED 12/16/2020 PBEA 0.3 12/16/2020 [id number] 97.1 12/16/2020 FIO2 28 12/16/2020 Lab Results Component Value Date/Time SPECIAL 20ML R HAND 12/16/2021 06:02 AM Lab Results Component Value Date/Time CULTURE NO GROWTH <24 HRS 12/16/2021 06:02 AM Radiology: XR WRIST LEFT (MIN 3 VIEWS) Result Date: 12/13/2021 Left wrist: No fracture. Left ankle: No fracture. Moderate soft tissue swelling at the site of insertion of Achillis tendon to calcaneus. XR ANKLE LEFT (MIN 3 VIEWS) Result Date: 12/13/2021 Left wrist: No fracture. Left ankle: No fracture. Moderate soft tissue swelling at the site of insertion of Achillis tendon to calcaneus. Physical Examination: General appearance: alert, cooperative and no distress Mental Status: oriented to person, place and time and normal affect Lungs: clear to auscultation bilaterally, normal effort Heart: S1-S2, systolic murmur Abdomen: soft, nontender, nondistended, normal bowel sounds, no masses, hepatomegaly, splenomegaly Extremities: Tenderness in the right shoulder girdle area, also swelling in the left wrist is improving, range of movements is improving, edema in the left ankle is improving as well. No swelling or redness in the arms or legs skin: no gross lesions, rashes, induration Assessment: Hospital Problems Last Modified POA * (Principal) Septic embolism (HCC) 12/14/2021 Yes Heroin abuse (HCC) 12/14/2021 Yes Chronic hepatitis C without hepatic coma (HCC) 12/14/2021 Yes MRSA bacteremia 12/14/2021 Yes Acute respiratory failure with hypoxia (HCC) 12/14/2021 Yes Moderate protein-calorie malnutrition (HCC) (Chronic) 12/14/2021 Yes Bloody diarrhea 12/14/2021 Yes Anemia 12/14/2021 Yes Hypokalemia 12/14/2021 Yes Acute bacterial endocarditis 12/16/2021 Yes Plan: 1. Continue vancomycin per infectious disease, blood culture positive for MRSA 2. GIANFRANCO positive for vegetation on the tricuspid valve, continue vancomycin. Follow ID and cardiology recommendations 3. Wrist pain and ankle pain are improving, x-rays have been negative, however still complains of significant tenderness in the left ankle, will get Ortho input 4. Hyponatremia, continue fluid restriction 5. Chronic hepatitis C outpatient follow-up with GI 6. Bloody stools resolved outpatient follow-up with GI 7. Substance abuse outpatient rehab 8. training and development manager to help with discharge planning for outpatient IV antibiotics Marimar Ren MD 12/16/2021 12:34 PM Images from the original note were not included. [facility] - Infectious diseases evaluation admission date 12/13/2021 reason for consultation: Septic pulmonary emboli Impression : Current: Pulmonary septic emboli with cavitary pneumonia MRSA septicemia Heroin use Chronic hepC Allergy severe to PNC Other: Discussion / summary of stay / plan of care Recommendations Continue Vanco for MRSA bacteremia GIANFRANCO to look for vegetations Repeat blood culture still negative Infection Control Recommendations [place] Precautions Contact Isolation Antimicrobial Stewardship Recommendations Simplification of therapy Targeted therapy PK dosing Coordination ofOutpatient Care: Estimated Length of IV antimicrobials: Patient will need Midline / picc Catheter Insertion: Patient will need SNF: Patient will need outpatient wound care: History of Present Illness: Initial history: Tip Ansari is a 41 y.o.-year-old male sent from another hospital because of pulmonary septic emboli, he is a heroin user Went to [place] with shortness of breath and fever, hypoxic started on oxygen. And blood in stools w abd pain. CT 12/11 shows multifocal nodular cavitary lesions likely septic emboli 2D echo 12/12 no clear vegetation Vancomycin started on 12/11 It seems that he had collapsed on 12/04 with a needle in his arm, since then he has had an ankle pain He also has had a left hand swelling with redness, he claims it was from a lab draw. bloody diarrhea and abd pain ultimately Resolved after AB Currently abd non tender L slightly edematous and slightly tender to touch but not red, possibly sprain Interval changes 12/15/2021 Patient Vitals for the past 8 hrs: BP Temp Temp src Pulse Resp 12/15/21 1754 (!) 120/90 98.6 F (37 C) Oral 108 18 12/15 Walking comfortable ambulating without any lower back pain management pain Left hand dorsum area remains red tender swollen, patient claims it was only after blood was removed Denies there was an injection of drugs in that area Blood cultures MRSA Summary of relevant labs: Labs: WBC 9.1 9.2 Platelets 112 Micro: Blood culture 12/13 X 2 MRSA Imaging: C T scan [facility] 12/11 suggestive of multifocal septic emboli with cavitation I have personally reviewed the past medical history, past surgical history, medications, social history, and family history, and I haveupdated the database accordingly. Allergies: Pcn [penicillins] Review of Systems: Review of Systems Constitutional: Negative for activity change, chills and diaphoresis. HENT: Negative for congestion. Eyes: Negative for pain, discharge and itching. Respiratory: Negative for apnea. Cardiovascular: Negative for chest pain. Gastrointestinal: Negative for abdominal distention and abdominal pain. Endocrine: Negative for cold intolerance. Genitourinary: Negative for dysuria. Musculoskeletal: Negative for arthralgias. Skin: Negative for color change. Allergic/Immunologic: Negative for immunocompromised state. Neurological: Negative for dizziness. Hematological: Negative for adenopathy. Psychiatric/Behavioral: Negative for agitation. Physical Examination : Physical Exam Constitutional: Appearance: Normal appearance. He is not ill-appearing. HENT: Head: Normocephalic and atraumatic. Nose: Nose normal. Mouth/Throat: Mouth: Mucous membranes are moist. Eyes: General: No scleral icterus. Conjunctiva/sclera: Conjunctivae normal. Cardiovascular: Rate and Rhythm: Normal rate and regular rhythm. Heart sounds: Normal heart sounds. No friction rub. Pulmonary: Breath sounds: Normal breath sounds. No stridor. Abdominal: General: There is no distension. Palpations: Abdomen is soft. There is no mass. Genitourinary: Comments: No ortiz Musculoskeletal: General: No swelling, tenderness, deformity or signs of injury. Cervical back: Neck supple. No rigidity. Comments: Left hand dorsum pink sore - Left ankle edema and slightly tender Skin: General: Skin is dry. Coloration: Skin is not jaundiced. Neurological: General: No focal deficit present. Mental Status: He is alert and oriented to person, place, and time. Cranial Nerves: No cranial nerve deficit. Psychiatric: Mood and Affect: Mood normal. Thought Content: Thought content normal. Past Medical History: Past Medical History: Diagnosis Date Abscess 2020 left arm + MRSA Chronic hepatitis C without hepatic coma (HCC) COPD (chronic obstructive pulmonary disease) (HCC) Depression Drug addiction (HCC) heroin Past Surgical History: Past Surgical History: Procedure Laterality Date ABSCESS DRAINAGE Left 2019 arm APPENDECTOMY FINGER SURGERY Right 5 th finger tendon repair TYMPANOSTOMY TUBE PLACEMENT Bilateral Medications: vancomycin (VANCOCIN) intermittent dosing (placeholder) Other RX Placeholder vancomycin 1,250 mg IntraVENous Q12H melatonin 5 mg Oral Nightly potassium chloride 40 mEq Oral Once sodium chloride flush 5-40 mL IntraVENous 2 times per day enoxaparin 40 mg SubCUTAneous Daily Social History: Social History Socioeconomic History Marital status: Single Spouse name: Not on file Number of children: Not on file Years of education: Not on file Highest education level: Not on file Occupational History Not on file Tobacco Use Smoking status: Former Smoker Smokeless tobacco: Never Used Substance and Sexual Activity Alcohol use: No Drug use: Yes Types: Cocaine, Opiates , Marijuana ([place]), Methamphetamines (Crystal Meth) Comment: quit heroin Nov Sexual activity: Not on file Other Topics Concern Not on file Social History Narrative Not on file Social Determinants of Health Financial Resource Strain: Difficulty of Paying Living Expenses: Not on file Food Insecurity: Worried About Running Out of Food in the Last Year: Not on file Ran Out of Food in the Last Year: Not on file Transportation Needs: Lack of Transportation (Medical): Not on file Lack of Transportation (Non-Medical): Not on file Physical Activity: Days of Exercise per Week: Not on file Minutes of Exercise per Session: Not on file Stress: Feeling of Stress : Not on file Social Connections: Frequency of Communication with Friends and Family: Not on file Frequency of Social Gatherings with Friends and Family: Not on file Attends Bahai Services: Not on file Active Member of Clubs or Organizations: Not on file Attends Club or Organization Meetings: Not on file Marital Status: Not on file Intimate Partner Violence: Fear of Current or Ex-Partner: Not on file Emotionally Abused: Not on file Physically Abused: Not on file Sexually Abused: Not on file Housing Stability: Unable to Pay for Housing in the Last Year: Not on file Number of Places Lived in the Last Year: Not on file Unstable Housing in the Last Year: Not on file Family History: Family History Problem Relation Age of Onset Cancer Mother skin No Known Problems Father Diabetes Maternal Grandmother Diabetes Maternal Grandfather Medical Decision Making: I have independently reviewed/ordered the following labs: CBC with Differential: Recent Labs 12/14/2155112/15/21513 WBC 9.2 8.3 HGB 10.3* 9.8* HCT 30.8* 29.7* PLT 150 140 LYMPHOPCT 11* 15* MONOPCT 9 10 BMP: Recent Labs 12/13/21191312/13/21 1914 12/14/2155112/15/21513 NA 135 < > 135 129* K 3.4* < > 3.6* 4.2 CL 104 < > 106 100 CO2 22 < > 23 22 BUN 9 < > 13 9 CREATININE 0.56* < > 0.55* 0.55* MG 1.9 -- -- -- < > = values in this interval not displayed. Hepatic Function Panel: Recent Labs 12/15/21513 PROT 5.7* LABALBU 1.9* BILITOT 0.38 ALKPHOS 117 ALT 64* AST 55* No results for input(s): RPR in the last 72 hours. No results for input(s): HIV in the last 72 hours. No results for input(s): BC in the last 72 hours. Lab Results Component Value Date CREATININE 0.55 12/15/2021 GLUCOSE 111 12/15/2021 Detailed results: Thank you for allowing us to participate in the care of this patient.Please call with questions. This note is created with the assistance of a speech recognition program. While intending to generate adocument that actually reflects the content of the visit, the document can still have some errors including those of syntax and sound a like substitutions which may escape proof reading. It such instances, actual meaningcan be extrapolated by contextual diversion. Marisol Andrea MD Office: Perfect serve / office [phone] Patient admitted, consent signed and questions answered. Patient ready for procedure. Call light to reach with side rails up 2 of 2. No family at bedside with patient. History and physical complete. Images from the original note were not included. [facility] Office: [phone] Mikie Rodriguez DO, Theo Lerma DO, Stuart Natarajan DO, Harpal Tran DO, Prashanth Sadler MD, Deana Raza MD, Florencia Canela MD, Tess Ford MD, Yuliana Saenz MD, Leodan Mak MD, Marimar Ren MD, Fabricio Syed DO, Kyle Broussard DO, Juan Driver MD, Sophia Agustin DO, Lyle Woods MD, Jodi Bain MD, Palomo Drummond MD, Radha Avila MD, Alberto Perez MD, Teresa Quintero CNP, Tika Hernandez MARINE EQUIPMENT SALES ENGINEER, Mary Meléndez, MARINE EQUIPMENT SALES ENGINEER, Cathleen Moran, HAIR BLENDER, Abdirahman Bella, PABLO, Leslie Rao CNP, Madalyn Dixon CNP, Ro Bernard, PABLO, Carter Charles, PABLO, Mckayla Abraham PA-C, Eli Fu DNP, Razia Figueroa DNP, Keri Walker, PABLO, Sherrie Rea CNP, Moon Waldrop CNP, Ethel Soto CNP, Jazzy Javier CNP, Shelli Menon, PABLO [facility] IN-PATIENT SERVICE [facility] Progress Note 12/15/2021 3:28 PM Name: Tip Ansari Acct: [id number] Room: 03104-11 Day: 2 Admit Date: 12/13/2021 6:34 PM PCP: No primary care provider on file. Code Status: Full Code Subjective: C/C: weakness, chest pain, shortness of breath Interval History Status: improved. Pt seen and evaluated this morning. He is feeling better. Joint pain improved. He walked in the alves with therapy today. No new complaints. He will undergo GIANFRANCO to r/o valvular vegetation. Brief History: Tip Ansari is a 41 y.o. male who presents with weakness. He was directly admitted from [facility] Dec 13 for the management of Septic embolism (HCC). Pt has used Heroin intermittently several years Presented to [facility] ED 12/11 with 2 day hx of Nausea, bloody diarrhea stools, weakness, F/C. He quit heroin ~ 12/04 after collapsing w needle in his arm. He also uses mariajuana but denies amphetamine use. Pt reports left ankle pain and swelling since the collapse. He was seen a few days earlier at another ED and reports left hand swelling and redness from a lab draw. Initial work up: WBC 12.6, Na 122, K 2.9, BUN/Cr 11/0.71, LFT's wnl, Ca 7.8, Alb 2, TP 6.3 UDS + methamphetamine & THC (neg opiates). Covid Neg, Stool OB +, stool cultures neg, BC's x 2 + MRSA 12/11 CT chest wo contrast: Bilat multilobar, multifocal scattered nodular opacities, the larger w cavitation, likely septic emboli. 12/12 Cardiac Echo: No gross vegetation, normal EF Started Vanco via rt picc placed 12/11. Bloody Diarrhea has resolved since ATBX started. Review of Systems: Constitutional: negative for chills, fevers, sweats Respiratory: Positive for cough, dyspnea on exertion, shortness of breath. Negative for wheezing Cardiovascular: negative for chest pain, chest pressure/discomfort, lower extremity edema, palpitations Gastrointestinal: negative for abdominal pain, constipation, diarrhea, nausea, vomiting Neurological: negative for dizziness, headache Medications: Allergies: Allergies Allergen Reactions Pcn [Penicillins] Anaphylaxis Current Meds: Scheduled Meds: vancomycin (VANCOCIN) intermittent dosing (placeholder) Other RX Placeholder vancomycin 1,250 mg IntraVENous Q12H melatonin 5 mg Oral Nightly potassium chloride 40 mEq Oral Once sodium chloride flush 5-40 mL IntraVENous 2 times per day enoxaparin 40 mg SubCUTAneous Daily Continuous Infusions: sodium chloride PRN Meds: albuterol, sodium chloride flush, sodium chloride, potassium chloride OR potassium alternative oral replacement OR potassium chloride, magnesium sulfate, ondansetron OR ondansetron, acetaminophen OR acetaminophen, bisacodyl, ketorolac Data: Past Medical History: has a past medical history of Abscess, Chronic hepatitis C without hepatic coma (HCC), COPD (chronic obstructive pulmonary disease) (HCC), Depression, and Drug addiction (HCC). Social History: reports that he has quit smoking. He has never used smokeless tobacco. He reports current drug use. Drugs: Cocaine, Opiates , Marijuana ([place]), and Methamphetamines (Crystal [place]). He reports that he does not drink alcohol. Family History: Family History Problem Relation Age of Onset Cancer Mother skin No Known Problems Father Diabetes Maternal Grandmother Diabetes Maternal Grandfather Vitals: BP 132/88 Pulse 112 Temp 98.4 F (36.9 C) (Oral) Resp 20 Ht 6' 1 (1.854 m) Wt 170 lb (77.1 kg) SpO2 97% BMI 22.43 kg/m Temp (24hrs), Av.4 F (36.9 C), Min:98.4 F (36.9 C), Max:98.4 F (36.9 C) No results for input(s): POCGLU in the last 72 hours. I/O (24Hr): Intake/Output Summary (Last 24 hours) at 12/15/2021 1527 Last data filed at 12/15/2021 0750 Gross per 24 hour Intake 496 ml Output 950 ml Net -454 ml Labs: Hematology: Recent Labs 12/13/21 1914 12/13/21 2106 12/14/21 0552 12/15/21 0514 WBC -- 9.1 9.2 8.3 RBC -- 3.57* 3.69* 3.52* HGB -- 10.1* 10.3* 9.8* HCT -- 28.9* 30.8* 29.7* MCV -- 81.0* 83.5 84.4 MCH -- 28.3 27.9 27.8 MCHC -- 34.9* 33.4 33.0 RDW -- 14.5* 14.7* 15.0* PLT -- See Reflexed IPF Result 150 140 MPV -- NOT REPORTED 10.8 10.5 CRP 110.3* -- -- 62.9* INR -- -- 1.2 -- DDIMER -- 2.63 -- -- Chemistry: Recent Labs 12/13/21 1914 12/14/21 0552 12/15/21513 NA 135 135 129* K 3.4* 3.6* 4.2 CL 104 106 100 CO2 GLUCOSE 121* 111* 111* BUN 9 13 9 CREATININE 0.56* 0.55* 0.55* MG 1.9 -- -- ANIONGAP 9 6* 7* LABGLOM >60 >60 >60 GFRAA >60 >60 >60 CALCIUM 7.4* 7.6* 7.0* TROPHS <6 -- -- Recent Labs 12/15/21513 PROT 5.7* LABALBU 1.9* AST 55* ALT 64* ALKPHOS 117 BILITOT 0.38 ABG: Lab Results Component Value Date PHART 7.380 12/16/2020 [id number] 44.5 12/16/2020 PO2ART 94.4 12/16/2020 [id number] 25.7 12/16/2020 NBEA NOT REPORTED 12/16/2020 PBEA 0.3 12/16/2020 [id number] 97.1 12/16/2020 FIO2 28 12/16/2020 Lab Results Component Value Date/Time SPECIAL RT AC 10 ML 12/13/2021 09:56 PM Lab Results Component Value Date/Time CULTURE POSITIVE Blood Culture (A) 12/13/2021 09:56 PM CULTURE 12/13/2021 09:56 PM DIRECT GRAM STAIN FROM BOTTLE: GRAM POSITIVE COCCI IN CLUSTERS CULTURE (A) 12/13/2021 09:56 PM Staphylococcus aureus Detected: mecA/C and MREJ Gene Detected- Methicillin Resistant Organism Methodology- Polymerase Chain Reaction (PCR) CULTURE METHICILLIN RESISTANT STAPHYLOCOCCUS AUREUS (A) 12/13/2021 09:56 PM CULTURE 12/13/2021 09:56 PM (NOTE) Direct Gram Stain from bottle and Polymerase Chain Reaction (PCR) results called to and read back by:DIANE Martinez AT 1440 ON 12/14/2021 Radiology: XR WRIST LEFT (MIN 3 VIEWS) Result Date: 12/13/2021 Left wrist: No fracture. Left ankle: No fracture. Moderate soft tissue swelling at the site of insertion of Achillis tendon to calcaneus. XR ANKLE LEFT (MIN 3 VIEWS) Result Date: 12/13/2021 Left wrist: No fracture. Left ankle: No fracture. Moderate soft tissue swelling at the site of insertion of Achillis tendon to calcaneus. Physical Examination: General appearance: alert, cooperative and no distress Mental Status: oriented to person, place and time and normal affect Lungs: clear to auscultation bilaterally, normal effort Heart: regular rate and rhythm, no murmur Abdomen: soft, nontender, nondistended, normal bowel sounds, no masses, hepatomegaly, splenomegaly Extremities: no edema, redness, tenderness in the calves. Right shoulder girdle is tender to palpation. There is no observable redness or increased warmth. Patient's shoulder is painful with any sort of active or passive movement. Skin: Skin is warm, dry and intact. Assessment: Hospital Problems Last Modified POA * (Principal) Septic embolism (HCC) 12/14/2021 Yes Heroin abuse (HCC) 12/14/2021 Yes Chronic hepatitis C without hepatic coma (HCC) 12/14/2021 Yes MRSA bacteremia 12/14/2021 Yes Acute respiratory failure with hypoxia (HCC) 12/14/2021 Yes Moderate protein-calorie malnutrition (HCC) (Chronic) 12/14/2021 Yes Bloody diarrhea 12/14/2021 Yes Anemia 12/14/2021 Yes Hypokalemia 12/14/2021 Yes Plan: MRSA bacteremia, septic pulmonary emboli -Continue IV vancomycin as ordered. Infectious disease consultation placed. Aztreonam added. Repeat blood cultures 12/13 positive for MRSA (12/13/2021) . ID recommending transesophageal echocardiogram to rule out vegetation Joint pain -Improving daily. X-ray is unrevealing. If symptoms worsen will need to consult orthopedic surgery to rule out septic arthritis. Hyponatremia - urine studies consistent with SIADH. Fluid restrict <1500 mL daily. Continue to monitor. IV drug abuse, polysubstance abuse -Patient motivated to maintain sobriety. States that he has not used in over a week since becoming ill. Social work consultation placed. Diarrhea, bloody stool -Resolved. Hemoglobin stable. Continue to monitor Chronic hepatitis C -GI referral on discharge Mckayla Abraham PA-C 12/15/2021 3:27 PM Associated attestation - Marimar Ren MD - 12/15/2021 4:34 PM EST Images from the original note were not included. Attending Physician Statement I have discussed the case, including pertinent history and exam findings with the resident and the team. I have seen and examined the patient and the hall elements of the encounter have been performed by me. I agree with the assessment, plan and orders as documented by the resident. Review of Systems: In addition to the pertinent positives and negatives as stated within HPI and the review of systems as documented in their notes, all other systems were reviewed when able to and are reported negative. Patient overall feels better, Gentle IV fluids while n.p.o. for GIANFRANCO Continue antibiotics per infectious disease Marimar Ren MD Attending Physician, Internal Medicine Service Internal Medicine Residency Program 12/15/2021, 4:34 PM [facility] Pharmacokinetic Monitoring Service - Vancomycin Consulting Provider: 2 Indication: septic embolism Target Concentration: Goal AUC/BERENICE 400-600 mg*hr/L Day of Therapy: 2 Additional Antimicrobials: aztreonam Pertinent Laboratory Values: Wt Readings from Last 1 Encounters: 12/13/21 170 lb (77.1 kg) Temp Readings from Last 1 Encounters: 12/14/21 98.4 F (36.9 C) (Oral) Estimated Creatinine Clearance: 197 mL/min (A) (based on SCr of 0.55 mg/dL (L)). Recent Labs 12/14/21 0552 12/15/21 0514 CREATININE 0.55* 0.55* WBC 9.2 8.3 Procalcitonin: Pertinent Cultures: Culture Date Source Results 12/13 Blood GPC in clusters MRSA Nasal Swab: N/A. Non-respiratory infection. Recent vancomycin administrations vancomycin (VANCOCIN) 1250 mg in dextrose 5 % 250 mL IVPB (mg) 1,250 mg New Bag 12/15/21 1252 1,250 mg New Bag 0125 1,250 mg New Bag 12/14/21 1436 vancomycin (VANCOCIN) 1750 mg in dextrose 5% 500 mL IVPB (mg) 1,750 mg New Bag 12/14/21 0215 Assessment: Date/Time Current Dose Concentration Timing of Concentration (h) AUC 12/15/2021 1250 mg q 12 hours 14 3 hrs post dose 390 Note: Serum concentrations collected for AUC dosing may appear elevated if collected in close proximity to the dose administered, this is not necessarily an indication of toxicity Plan: Current dosing regimen is sub-therapeutic Increase dose to 1500 mg every 12 hours AUC calculated at 467 Repeat vancomycin concentration ordered for 12/17 @ 0600 Pharmacy will continue to monitor patient and adjust therapy as indicated Thank you for the consult, Alexei Mendoza RPH 12/15/2021 1:42 PM Physical Therapy Facility/Department: [facility] RENAL//MED SURG Initial Assessment NAME: Tip Ansari : 1980 The patient is a 41 y.o. male who is admitted to the hospital for Pulmonary septic emboli with cavitary pneumonia. He Has history of Heroin use and Chronic hepC. Blood culture is postivie for MRSA Date of Service: 12/15/2021 Discharge Recommendations: Further therapy recommended at discharge. PT Equipment Recommendations Equipment Needed: Yes Mobility Devices: Canes Cane: Straight Cane Assessment Body structures, Functions, Activity limitations: Decreased functional mobility ;Decreased balance;Decreased endurance;Decreased strength;Decreased ROM;Increased pain Assessment: The pt ambulated 260ft with CGA for safety, limited by L ankle pain. Recommend continued acute PT to progress gait training and ROM toward prior level of independence. Prognosis: Good Decision Making: Medium Complexity PT Education: Goals;PT Role;Plan of Care;Functional Mobility Training REQUIRES PT FOLLOW UP: Yes Activity Tolerance Activity Tolerance: Patient limited by pain Patient Diagnosis(es): There were no encounter diagnoses. has a past medical history of Abscess, Chronic hepatitis C without hepatic coma (HCC), COPD (chronic obstructive pulmonary disease) (HCC), Depression, and Drug addiction (HCC). has a past surgical history that includes Appendectomy; Abscess Drainage (Left, 2020); Finger surgery (Right); and Tympanostomy tube placement (Bilateral). Restrictions Restrictions/Precautions Restrictions/Precautions: Fall Risk Required Braces or Orthoses?: No Position Activity Restriction Other position/activity restrictions: up with assist Vision/Hearing Vision: Within Functional Limits Hearing: Within functional limits Subjective General Patient assessed for rehabilitation services?: Yes Response To Previous Treatment: Not applicable Family / Caregiver Present: No Follows Commands: Within Functional Limits Subjective Subjective: RN and pt agreeable to PT. Pt supine in bed upon arrival, pleasant and cooperative throughout. Pain Screening Patient Currently in Pain: Yes Pain Assessment Pain Assessment: 0-10 Pain Level: 7 Pain Type: Acute pain Pain Location: Ankle Pain Orientation: Left Pain Descriptors: Aching;Discomfort Non-Pharmaceutical Pain Intervention(s): Ambulation/Increased Activity Response to Pain Intervention: Patient Satisfied Vital Signs Patient Currently in Pain: Yes Orientation Orientation Overall Orientation Status: Within Functional Limits Social/Functional History Social/Functional History Lives With: Significant other Type of Home: Apartment Home Equipment: (no DME) ADL Assistance: Independent Homemaking Assistance: Independent Homemaking Responsibilities: Yes Ambulation Assistance: Independent Transfer Assistance: Independent Additional Comments: Pt returns plans to attend rehab upon discharge and possibly stay with friend upon completion of rehab. Cognition Cognition Overall Cognitive Status: WFL Objective Joint Mobility Spine: WFL ROM RLE: WFL hip, ankle DF to neutral, knee extension lacking ~10 degrees in sitting due to edema ROM LLE: WFL hip and knee, ankle DF to neutral, PF limited by pain ROM RUE: WFL ROM LUE: WFL, except wrist maintained in neutral due to pain Strength RLE Comment: at least 3/5 based on ROM assessment, unable to formally assess due to pain Strength LLE Comment: at least 3/5 based on ROM assessment, unable to formally assess due to pain Strength RUE Strength RUE: WFL Strength LUE Strength LUE: WFL Tone RLE RLE Tone: Normotonic Tone LLE LLE Tone: Normotonic Motor Control Gross Motor?: WFL Sensation Overall Sensation Status: Impaired (pt reports chronic neuropathy to LLE, beginning posterior to the knee and extending distally to the ankle) Bed mobility Supine to Sit: Minimal assistance (BRAID MAKER for trunk progression) Sit to Supine: (pt sitting EOB upon exit) Scooting: Contact guard assistance Transfers Sit to Stand: Contact guard assistance Stand to sit: Contact guard assistance Comment: Increased time required to achieve upright posture in standing due to pain Ambulation Ambulation?: Yes Ambulation 1 Surface: level tile Device: (pt pushing IV pole) Assistance: Contact guard assistance Quality of Gait: very slow serenity, requiring ~8 minutes to ambulate 270ft Gait Deviations: Slow Serenity;Decreased step length;Decreased step height;Decreased arm swing;Decreased head and trunk rotation Distance: 270ft Stairs/Curb Stairs?: No Balance Posture: Good Sitting - Static: Good Sitting - Dynamic: Good Standing - Static: Good;- Standing - Dynamic: Fair Comments: standing balance assessed with unilateral UE support on IV pole; pt sat unsupported ~30 minutes with SBA Plan Plan Times per week: 5x/wk Current Treatment Recommendations: Strengthening,ROM,Balance Training,Functional Mobility Training,Transfer Training,Gait Training,Stair training,Endurance Training,Home Exercise Program,Safety Education & Training,Patient/Caregiver Education & Training Safety Devices Type of devices: Nurse notified,Call light within reach,Gait belt,Left in bed Restraints Initially in place: No AM-PAC Score AM-PAC Inpatient Mobility Raw Score : 17 (12/15/211337) AM-PAC Inpatient T-Scale Score : 42.13 (12/15/211337) Mobility Inpatient CMS 0-100% Score: 50.57 (12/15/211337) Mobility Inpatient CMS G-Code Modifier : CK (12/15/211337) Goals Short term goals Time Frame for Short term goals: 14 visits Short term goal 1: Perform bed mobility and functional transfers independently Short term goal 2: Ambulate 600ft independently Short term goal 3: Ascend/descend 4 steps with HR and supervision Short term goal 4: Demo Good dynamic standing balance to decrease risk of falls Therapy Time Individual Concurrent Group Co-treatment Time In 958 Time Out 1049 Minutes 50 Timed Code Treatment Minutes: 40 Minutes Barbara Ojeda PT Physician Progress Note PATIENT: BRIE ANSARIS CSN #: [id number] : 1980 ADMIT DATE: 12/13/2021 6:34 PM DISCH DATE: RESPONDING PROVIDER #: MCKAYLA ABRAHAM PA-C QUERY TEXT: Patient admitted with septic emboli. Noted documentation of acute respiratory failure in H&P on 12/13. In order to support the diagnosis of acute respiratory failure, please include additional clinical indicators in your documentation. Or please document if the diagnosis of acute respiratory failure has been ruled out after further study. The medical record reflects the following: Risk Factors: septic Emboli, Bacteremia- MRSA, Melena, IV drug user- Heroin with recent stopping on 12/04 . Clinical Indicators: respiratory rate - 18-20, Heart rate- 103-112, Oxygen therapy with only FiO2 @ 32% with 3l/NC and started at outside facility with hypoxia and c/o SOB. SPO2@ 97% with treatment. CRP- 110.3-62.9. No ABG's. complains of cough with brown/yellow phlegm, Treatment: monitor, transfer from [facility], oxygen therapy. Thank You, Johann RN, CDS- email - [email or web address] [phone] office hours [id number] Acute Respiratory Failure Clinical Indicators per 3M MS-DRG Training Guide and Quick Reference Guide: pO2 < 60 mmHg or SpO2 (pulse oximetry) < 91% breathing room air pCO2 > 50 and pH < 7.35 P/F ratio (pO2 / FIO2) < 300 pO2 decrease or pCO2 increase by 10 mmHg from baseline (if known) Supplemental oxygen of 40% or more Presence of respiratory distress, tachypnea, dyspnea, shortness of breath, wheezing Unable to speak in complete sentences Use of accessory muscles to breathe Extreme anxiety and feeling of impending doom Tripod position Confusion/altered mental status/obtunded Options provided: -- Acute Respiratory Failure as evidenced by, Please document evidence. -- Acute Respiratory Failure ruled out after study -- Other - I will add my own diagnosis -- Disagree - Not applicable / Not valid -- Disagree - Clinically unable to determine / Unknown -- Refer to Clinical Documentation Reviewer PROVIDER RESPONSE TEXT: Acute Respiratory Failure has been ruled out after study. Query created by: Johann Smith on 12/15/2021 10:38 AM Electronically signed by: MCKAYLA ABRAHAM PA-C 12/15/2021 10:46 AM Images from the original note were not included. [facility] Office: [phone] Mikie Rodriguez DO, Theo Lerma DO, Stuart Natarajan DO, Harpal Tran DO, Prashanth Sadler MD, Deana Raza MD, Florencia Canela MD, Tess Ford MD, Yuliana Saenz MD, Leodan Mak MD, Marimar Ren MD, Fabricio Syed DO, Kyle Broussard DO, Juan Driver MD, Sophia Agustin DO, Lyle Woods MD, Jodi Bain MD, Palomo Drummond MD, Radha Avila MD, Alberto Perez MD, Teresa Quintero, MARINE EQUIPMENT SALES ENGINEER, Tika Hernandez, MARINE EQUIPMENT SALES ENGINEER, Mary Meléndez, MARINE EQUIPMENT SALES ENGINEER, Cathleen Moran, HAIR BLENDER, Abdirahman Bella, MARINE EQUIPMENT SALES ENGINEER, Leslie Rao, MARINE EQUIPMENT SALES ENGINEER, Madalyn Dixon, MARINE EQUIPMENT SALES ENGINEER, Ro Bernard, MARINE EQUIPMENT SALES ENGINEER, Cartre Charles, MARINE EQUIPMENT SALES ENGINEER, Mckayla Abraham PA-C, Eli Fu, FÉLIX, Razia Figueroa, DNP, Keri Walker, MARINE EQUIPMENT SALES ENGINEER, Sherrie Rea, MARINE EQUIPMENT SALES ENGINEER, Moon Waldrop, MARINE EQUIPMENT SALES ENGINEER, Ethel Soto, MARINE EQUIPMENT SALES ENGINEER, Jazzy Javier, MARINE EQUIPMENT SALES ENGINEER, Shelli Menon, MARINE EQUIPMENT SALES ENGINEER [facility] IN-PATIENT SERVICE [facility] Progress Note 12/14/2021 2:34 PM Name: Tip Ansari Acct: [id number] Room: [place]/0316-[facility] Day: 1 Admit Date: 12/13/2021 6:34 PM PCP: No primary care provider on file. Code Status: Full Code Subjective: C/C: weakness, chest pain, shortness of breath Interval History Status: improved. Patient seen and evaluated this morning. He is feeling better today. Denying fevers, chills. He did have quite a bit of pain in his left wrist and left ankle yesterday, which he believes is improved today. Brief History: Tip Ansari is a 41 y.o. male who presents with weakness. He was directly admitted from [facility] Dec 13 for the management of Septic embolism (HCC). Pt has used Heroin intermittently several years Presented to [facility] ED 12/11 with 2 day hx of Nausea, bloody diarrhea stools, weakness, F/C. He quit heroin ~ 12/04 after collapsing w needle in his arm. He also uses mariajuana but denies amphetamine use. Pt reports left ankle pain and swelling since the collapse. He was seen a few days earlier at another ED and reports left hand swelling and redness from a lab draw. Initial work up: WBC 12.6, Na 122, K 2.9, BUN/Cr 11/0.71, LFT's wnl, Ca 7.8, Alb 2, TP 6.3 UDS + methamphetamine & THC (neg opiates). Covid Neg, Stool OB +, stool cultures neg, BC's x 2 + MRSA 12/11 CT chest wo contrast: Bilat multilobar, multifocal scattered nodular opacities, the larger w cavitation, likely septic emboli. 12/12 Cardiac Echo: No gross vegetation, normal EF Started Vanco via rt picc placed 12/11. Bloody Diarrhea has resolved since ATBX started. Review of Systems: Constitutional: negative for chills, fevers, sweats Respiratory: Positive for cough, dyspnea on exertion, shortness of breath. Negative for wheezing Cardiovascular: negative for chest pain, chest pressure/discomfort, lower extremity edema, palpitations Gastrointestinal: negative for abdominal pain, constipation, diarrhea, nausea, vomiting Neurological: negative for dizziness, headache Medications: Allergies: Allergies Allergen Reactions Pcn [Penicillins] Anaphylaxis Current Meds: Scheduled Meds: vancomycin (VANCOCIN) intermittent dosing (placeholder) Other RX Placeholder vancomycin 1,250 mg IntraVENous Q12H melatonin 5 mg Oral Nightly aztreonam 1,000 mg IntraVENous Q8H potassium chloride 40 mEq Oral Once sodium chloride flush 5-40 mL IntraVENous 2 times per day enoxaparin 40 mg SubCUTAneous Daily Continuous Infusions: sodium chloride PRN Meds: albuterol, sodium chloride flush, sodium chloride, potassium chloride OR potassium alternative oral replacement OR potassium chloride, magnesium sulfate, ondansetron OR ondansetron, acetaminophen OR acetaminophen, bisacodyl, ketorolac Data: Past Medical History: has a past medical history of Abscess, Chronic hepatitis C without hepatic coma (HCC), COPD (chronic obstructive pulmonary disease) (HCC), Depression, and Drug addiction (HCC). Social History: reports that he has quit smoking. He has never used smokeless tobacco. He reports current drug use. Drugs: Cocaine, Opiates , Marijuana ([place]), and Methamphetamines (Crystal Meth). He reports that he does not drink alcohol. Family History: Family History Problem Relation Age of Onset Cancer Mother skin No Known Problems Father Diabetes Maternal Grandmother Diabetes Maternal Grandfather Vitals: BP 122/76 Pulse 109 Temp 98.1 F (36.7 C) (Oral) Resp 18 Ht 6' 1 (1.854 m) Wt 170 lb (77.1 kg) SpO2 92% BMI 22.43 kg/m Temp (24hrs), Av.2 F (36.8 C), Min:97.8 F (36.6 C), Max:98.6 F (37 C) No results for input(s): POCGLU in the last 72 hours. I/O (24Hr): Intake/Output Summary (Last 24 hours) at 12/14/2021 1434 Last data filed at 12/13/2021 2200 Gross per 24 hour Intake Output 300 ml Net -300 ml Labs: Hematology: Recent Labs 12/13/21 19112/13/21 2106 12/14/21 0552 WBC -- 9.1 9.2 RBC -- 3.57* 3.69* HGB -- 10.1* 10.3* HCT -- 28.9* 30.8* MCV -- 81.0* 83.5 MCH -- 28.3 27.9 MCHC -- 34.9* 33.4 RDW -- 14.5* 14.7* PLT -- See Reflexed IPF Result 150 MPV -- NOT REPORTED 10.8 CRP 110.3* -- -- INR -- -- 1.2 DDIMER -- 2.63 -- Chemistry: Recent Labs 12/13/21 1914 12/14/21 0552 NA 135 135 K 3.4* 3.6* CL 104 106 CO2 22 23 GLUCOSE 121* 111* BUN 9 13 CREATININE 0.56* 0.55* MG 1.9 -- ANIONGAP 9 6* LABGLOM >60 >60 GFRAA >60 >60 CALCIUM 7.4* 7.6* TROPHS <6 -- No results for input(s): PROT, LABALBU, LABA1C, K6HNYEI, C9YSOZZ, FT4, TSH, AST, ALT, LDH, GGT, ALKPHOS, LABGGT, BILITOT, BILIDIR, AMMONIA, AMYLASE, LIPASE, LACTATE, CHOL, HDL, LDLCHOLESTEROL, CHOLHDLRATIO, TRIG, VLDL, VDB59LC, PHENYTOIN, PHENYF, URICACID, POCGLU in the last 72 hours. ABG: Lab Results Component Value Date PHART 7.380 12/16/2020 QWE6RCY 44.5 12/16/2020 PO2ART 94.4 12/16/2020 [id number] 25.7 12/16/2020 NBEA NOT REPORTED 12/16/2020 PBEA 0.3 12/16/2020 [id number] 97.1 12/16/2020 FIO2 28 12/16/2020 Lab Results Component Value Date/Time SPECIAL RT AC 10 ML 12/13/2021 09:56 PM Lab Results Component Value Date/Time CULTURE NO GROWTH 12 HOURS 12/13/2021 09:56 PM Radiology: XR WRIST LEFT (MIN 3 VIEWS) Result Date: 12/13/2021 Left wrist: No fracture. Left ankle: No fracture. Moderate soft tissue swelling at the site of insertion of Achillis tendon to calcaneus. XR ANKLE LEFT (MIN 3 VIEWS) Result Date: 12/13/2021 Left wrist: No fracture. Left ankle: No fracture. Moderate soft tissue swelling at the site of insertion of Achillis tendon to calcaneus. Physical Examination: General appearance: alert, cooperative and no distress Mental Status: oriented to person, place and time and normal affect Lungs: clear to auscultation bilaterally, normal effort Heart: regular rate and rhythm, no murmur Abdomen: soft, nontender, nondistended, normal bowel sounds, no masses, hepatomegaly, splenomegaly Extremities: no edema, redness, tenderness in the calves. Right shoulder girdle is tender to palpation. There is no observable redness or increased warmth. Patient's shoulder is painful with any sort of active or passive movement. Skin: There is scant redness on the dorsal left wrist with a small vesicle apparent. The joint itself is nontender. In comparison to photo taken yesterday, swelling and erythema appears improved. Assessment: Hospital Problems Last Modified POA * (Principal) Septic embolism (HCC) 12/14/2021 Yes Heroin abuse (HCC) 12/14/2021 Yes Chronic hepatitis C without hepatic coma (HCC) 12/14/2021 Yes MRSA bacteremia 12/14/2021 Yes Acute respiratory failure with hypoxia (HCC) 12/14/2021 Yes Moderate protein-calorie malnutrition (HCC) (Chronic) 12/14/2021 Yes Bloody diarrhea 12/14/2021 Yes Plan: MRSA bacteremia, septic pulmonary emboli -Continue IV vancomycin as ordered. Infectious disease consultation placed. Aztreonam added. Repeat blood cultures. ID recommending transesophageal echocardiogram to rule out vegetation Joint pain -Left wrist and left foot pain markedly improved today. Patient complaining of right shoulder pain with movement and palpation. X-ray is unrevealing. If symptoms worsen will need to consult orthopedic surgery to rule out septic arthritis. IV drug abuse, polysubstance abuse -Patient motivated to maintain sobriety. States that he has not used in over a week since becoming ill. Social work consultation placed. Diarrhea, bloody stool -Resolved. Hemoglobin stable. Continue to monitor Chronic hepatitis C -GI referral on discharge Replete potassium Mckayla Abraham PA-C 12/14/2021 2:34 PM Associated attestation - Marimar Ren MD - 12/14/2021 3:22 PM EST I have seen and examined Tip Ansari and the hall elements of all parts of the encounter have been performed by me. I agree with the assessment, plan and orders as documented by the Advanced Practice Provider. Any modifications to the exam findings and the plan of treatment is as below and the final version is my approved version of the assessment. Additional Comments: Patient is overall feeling much better today. He says his pain symptoms have improved. Blood cultures positive for MRSA. Also he is rectal bleeding has improved and I advised him to follow-up with GI as an outpatient. He is also to advise us if his bleeding returns. Continue vancomycin as per infectious disease. Infectious diseases also started him on aztreonam. Follow-up on echocardiogram was ordered by ID Outpatient GI follow-up drive worker to help with outpatient rehab Replace potassium Comprehensive Nutrition Assessment Type and Reason for Visit: Initial,Consult,Positive Nutrition Screen (Poor Intakes/Appetite x 5 or more days; Weight Loss, Poor Intakes/Appetite) Nutrition Recommendations/Plan: Continue current diet. Will provide 1 Ensure Enlive oral supplement per day. Encourage/monitor PO intakes as tolerated. Will monitor labs, weights, and plan of care. Nutrition Assessment: Consulted for poor intakes/appetite and weight loss. Pt admitted with weakness, nausea, and bloody diarrhea along with septic emboli. Pt with h/o IV drug abuse, COPD, Hep C. Pt reports poor PO intakes before admission and h/o variable PO intakes. Observed lunch tray which pt ate 100% of his meal. RN reports pt has been eating well at meals. Weight loss reported - reports recent weight of 160 lb. Noted per chart review, weight loss of 10% x 7 months. Malnutrition Assessment: Malnutrition Status: At risk for malnutrition Context: Acute Illness Findings of the 6 clinical characteristics of malnutrition: Energy Intake: 1 - 75% or less of estimated energy requirements for 7 or more days Weight Loss: No significant weight loss - 10% x 7 months noted per chart review Body Fat Loss: No significant body fat loss Muscle Mass Loss: No significant muscle mass loss Fluid Accumulation: No significant fluid accumulation Crown Perforator Operator Strength: Not Performed Estimated Daily Nutrient Needs: Energy (kcal): 25-27 kcal/kg = 4407-7934 kcals/day; Weight Used for Energy Requirements: Current Protein (g): 1.2-1.5 gm/kg = 90-115 gm pro/day; Weight Used for Protein Requirements: Current Fluid (ml/day): 30 mL/kg = 2300 mL/day or per MD; Method Used for Fluid Requirements: ml/Kg Nutrition Related Findings: Labs/Meds reviewed. Wounds: None Current Nutrition Therapies: ADULT DIET; Regular Anthropometric Measures: Height: 6' 1 (185.4 cm) Current Body Weight: 170 lb (77.1 kg) Admission Body Weight: 170 lb (77.1 kg) Usual Body Weight: 189 lb (85.7 kg) (05/2021 per chart review) Pace Body Weight: 184 lbs; % Pace Body Weight 92.4 % BMI: 22.4 BMI Categories: Normal Weight (BMI 18.5-24.9) Nutrition Diagnosis: Inadequate oral intake related to (h/o drug abuse; current medical condition) as evidenced by poor intake prior to admission (improving PO intakes; reported h/o weight loss; need for ONS) Nutrition Interventions: Food and/or Nutrient Delivery: Continue Current Diet,Start Oral Nutrition Supplement Nutrition Education/Counseling: No recommendation at this time Coordination of Nutrition Care: Continue to monitor while inpatient Goals: Oral intakes to meet 75-100% of estimated nutrition needs. Nutrition Monitoring and Evaluation: Behavioral-Environmental Outcomes: None Identified Food/Nutrient Intake Outcomes: Food and Nutrient Intake,Supplement Intake Physical Signs/Symptoms Outcomes: Biochemical Data,GI Status,Fluid Status or Edema,Nutrition Focused Physical Findings,Weight Discharge Planning: Too soon to determine Contact: [address] [facility] Pharmacokinetic Monitoring Service - Vancomycin Tip Ansari is a 41 y.o. male starting on vancomycin therapy for a septic embolism. Pharmacy consulted by Cathleen Moran for monitoring and adjustment. Target Concentration: Goal AUC/BERENICE 400-600 mg*hr/L Additional Antimicrobials: none Pertinent Laboratory Values: Wt Readings from Last 1 Encounters: 12/13/21 170 lb (77.1 kg) Temp Readings from Last 1 Encounters: 12/13/21 97.8 F (36.6 C) (Oral) Estimated Creatinine Clearance: 193 mL/min (A) (based on SCr of 0.56 mg/dL (L)). Recent Labs 12/13/21 19112/13/212105 CREATININE 0.56* -- WBC -- 9.1 Pertinent Cultures: Culture Date Source Results pending Plan: Dosing recommendations based on Bayesian software Start vancomycin 1750 mg for one dose followed by 1250 mg every 12 hours. Anticipated AUC of 463 and trough concentration of 13.1 at steady state Renal labs as indicated Pharmacy will continue to monitor patient and adjust therapy as indicated Thank you for the consult, Carter Cormier RPH 12/14/2021 12:41 AM documented [facility] this encounter [facility]: 12-17-2021 Hospital Discharge instructions Chasity Walker RN - 12/17/2021 Orthopaedic Instructions: -Weight bearing status: Weight bearing as tolerated Bilateral upper and lower extremities -Always look for signs of compartment syndrome: pain out of proportion to the injury, pain not controlled with pain medication, numbness in digits, changing of color of digits (paleness). If these signs occur return to ED immediately for reassessment. -Ice (20 minutes on and off 1 hour) and elevate above the level of the heart to reduce swelling and throbbing pain. -Call the office or come to Emergency Room if signs of infection appear (hot, swollen, red, draining pus, fever) -Take medications as prescribed. -Wean off narcotics (percocet/norco) as soon as possible. Do not take tylenol if still taking narcotics. -Follow up with Infectious disease -Follow up if symptoms worsen or fail to improve as needed with Dr. Barajas in his office. Call Call [phone] to schedule/confirm. 3rd floor infusion center at [facility] on 12-22-21 and 12-29-21 at 3pm documented in this encounter [employer] [facility] [employer] Phone: 12-16-2021 Note [facility] Vascular Upper Extremities Veins Procedure Patient Name COTY Date of Study 12/16/2021 TIP Boni Date of 1980 Gender Male Age 41 year(s) Race Room Number 0316 Height: 73 inch, 185.42 cm Corporate ID [id number] Weight: 170 pounds, 77.1 kg # Patient Acct [id number] BSA: 2.01 m^2 BMI: 22.43 kg/m^2 # MR # [id number] Toll Line Repairer Vivienne Roach RVT Interpreting Physician Gordo Juárez Referring Referring Physician Marimar Ren Nurse Practitioner Procedure Type of Study: Veins: Upper Extremities Veins, Venous Scan Upper Left. Indications for Study:Edema. Patient Status:In Patient. Technical Quality:Adequate visualization. Limitation reason:veins compressed with breathing. Conclusions Summary Simultaneous real time imaging utilizing B-Mode, color doppler and spectral waveform analysis was performed on the left upper extremity for venous examination of the deep and superficial systems. Findings are: Left: No evidence of deep or superficial venous thrombosis. Signature Left Impression: Internal jugular, subclavian, axillary, brachial, ulnar, radial, cephalic and basilic veins are compressible with normal doppler responses. Incidental finding of a vascularized fluid collection in the wrist area with mixed echoes measuring 0.78 cm x 2.35 cm. Incidental finding of a non vascularized fluid collection in the medial distal forearm with mixed echoes measuring 0.46 cm x 2.12 cm. Risk Factors History + + +--- ---------+ !Diagnosis !Date !Comments ! + + +--- ---------+ !Previous Scan !05/29/2021!Bilateral Lower Venous: WNL ! + + +--- ---------+ - The patient's risk factor(s) include: chronic lung disease. - The patient has a former tobacco history. - The patient's last creatinine was 0.5 mg/dl. Allergies - Allergy:Penicillin(Drug). Velocities are measured in cm/s ; Diameters are measured in cm Right UE Vein Measurements Doppler Measurements + +-------- + ---------+ !Location !Signal !Reflux ! + +-------- + ---------+ !SCV !Spontaneous ! ! + +-------- + ---------+ Left UE Vein Measurements 2D Measurements + ----+ + +- ---------+ !Location !Visualized!Compressibility!Throm bosis! + ----+ + +- ---------+ !Prox IJV !Yes !Yes !None ! + ----+ + +- ---------+ !Dist IJV !Yes !Yes !None ! + ----+ + +- ---------+ !Prox SCV !Yes !Yes !None ! + ----+ + +- ---------+ !Dist SCV !Yes !Yes !None ! + ----+ + +- ---------+ !Prox Axillary !Yes !Yes !None ! + ----+ + +- ---------+ !Dist Axillary !Yes !Yes !None ! + ----+ + +- ---------+ !Prox Brachial !Yes !Yes !None ! + ----+ + +- ---------+ !Dist Brachial !Yes !Yes !None ! + ----+ + +- ---------+ !Prox Radial !Yes !Yes !None ! +----- (more content not included)... [facility] 12-16-2021 Note [facility] Vascular Lower Extremities DVT Study Procedure Patient Name COTY Date of Study 12/16/2021 TIP Plata Date of 1980 Gender Male Age 41 year(s) Race Room Number 0316 Height: 73 inch, 185.42 cm Corporate ID [id number] Weight: 170 pounds, 77.1 kg # Patient Acct [id number] BSA: 2.01 m^2 BMI: 22.43 kg/m^2 # MR # [id number] Toll Line Repairer Vivienne Roach RVT Interpreting Physician Gordo Juárez Referring Referring Physician Marimar Ren Nurse Practitioner Procedure Type of Study: Veins: Lower Extremities DVT Study, Venous Scan Lower Left. Indications for Study:Edema. Patient Status:In Patient. Technical Quality:Adequate visualization. Limitation reason:edema. Conclusions Summary Simultaneous real time imaging utilizing B-Mode, color doppler and spectral waveform analysis was performed on the left lower extremity for venous examination of the deep and superficial systems. Findings are: Left: No evidence of deep or superficial venous thrombosis. Small fluid collection noted around the ankle, correlate clinically. Signature Left Impression: The common femoral, femoral, popliteal and tibial veins demonstrate normal compressibility and augmentation. Normal compressibility of the great saphenous vein. Normal compressibility of the small saphenous vein. Enlarged lymph nodes are noted at the groin level. Incidental finding of a non vascularized fluid collection in the medial ankle with mixed echoes measuring 1.58 cm x 0.71 cm. Incidental finding of a non vascularized fluid collection in the lateral ankle with mixed echoes measuring 1.27 cm x 0.49 cm. Risk Factors History + + +--- ---------+ !Diagnosis !Date !Comments ! + + +--- ---------+ !Previous Scan !05/29/2021!Bilateral Lower Venous: WNL ! + + +--- ---------+ - The patient's risk factor(s) include: chronic lung disease. - The patient has a former tobacco history. - The patient's last creatinine was 0.5 mg/dl. Allergies - Allergy:Penicillin(Drug). Velocities are measured in cm/s ; Diameters are measured in cm Right Lower Extremities DVT Study Measurements Right Doppler Measurements + +----- ------+------+ ---------+ !Location !Signal !Reflux!Reflux (msec) ! + +----- ------+------+ ---------+ !Common Femoral !Spontaneous! ! ! + +----- ------+------+ ---------+ Left Lower Extremities DVT Study Measurements Left 2D Measurements + ----+ + +- ---------+ !Location !Visualized!Compressibility!Throm bosis! + ----+ + +- ---------+ !Common Femoral !Yes !Yes !None ! + ----+ + +- ---------+ !Prox Femoral !Yes !Yes !None ! + ----+ + +- ---------+ !Mid Femoral !Yes !Yes !None ! + ----+ + +- ---------+ !Dist Femoral !Yes !Yes !None ! + ----+ + +- ---------+ !Popliteal !Yes !Yes !None ! + ----+ + +- ---------+ !Sapheno Femoral Junction !Yes !Yes !None ! + ----+ + +- ---------+ !PTV !Yes !Yes !None ! + ----+ + +- ---------+ !Josey (more content not included)...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 RN)1700 (Due) vancomycin (VANCOCIN) 1250 mg in dextrose 5 % 250 mL IVPB (CANCELED) 1,250 mg (16.1 mg/kg), IntraVENous, at 166.7 mL/hr, Administer over 90 Minutes, EVERY 8 HOURS, First dose on Sat12/18/21 at 0900 0956 (New Bag - Provider: Ambreen Quigley RN)1126 (Stopped - Provider: Ambreen Quigley RN)1930 (New Bag - Provider: Ambreen Quigley RN)2130 (Stopped - Provider: Nato Hsieh RN) 0055 (New Bag - Provider: Nato Hsieh RN)0226 (Stopped - Provider: Nato Hsieh RN)0846 (New Bag - Provider: Betzy Mckee RN)1054 (Stopped - Provider: Betzy cMkee RN)1808 (New Bag - Provider: Betzy Mckee RN)1942 (Stopped - Provider: Nato Hsieh RN) 0035 (New Bag - Provider: Nato Hsieh RN)0205 (Stopped - Provider: Nato Hsieh RN)0845 (New Bag - Provider: Chasity Walker, ANSELMO)1015 (Stopped - Provider: Chasity Walker, ANSELMO) vancomycin (VANCOCIN) 1250 mg in dextrose 5 % 250 mL IVPB 1,250 mg (16 mg/kg), IntraVENous, at 166.7 mL/hr, Administer over 90 Minutes, EVERY 12 HOURS, First dose (after last modification) on Radha 12/21/21 at 0100 vancomycin (VANCOCIN) 1500 mg in dextrose 5 % 250 mL IVPB (CANCELED) 1,500 mg (19.5 mg/kg), IntraVENous, at 166.7 mL/hr, Administer over 90 Minutes, EVERY 12 HOURS, First dose on Sat12/17/21 at 0200 0142 (New Bag - Provider: Betzy Walker, RN)0312 (Stopped - Provider: Betzy Walker, ANSELMO) vancomycin (VANCOCIN) intermittent dosing (placeholder) Continuous Medication Order 12/18/2021 12/19/2021 12/20/2021 0.9 % sodium chloride infusion (CANCELED) IntraVENous, at 75 mL/hr, CONTINUOUS, Starting on Sat12/18/21 at 1800 1705 (New Bag - Provider: Ambreen Quigley RN) PRN Medication Order 12/18/2021 12/19/2021 12/20/2021 0.9 % sodium chloride infusion 25 mL, IntraVENous, at 100 mL/hr, PRN, If patient receiving piggyback infusions without ordered maintenance IV fluids or with frequent/long duration piggyback infusions, Starting on Sat12/13/21 at 1840, Administer at the same rate as the piggyback being infused. acetaminophen (TYLENOL) suppository 650 mg(Linked Group 1) 650 mg, Rectal, EVERY 6 HOURS PRN, Pain Mild (1-3), Fever, For temp greater than 100.4 F (38 C), Starting on Sat12/13/21 at 1840, Administer if oral route cannot be used. 1301 (See Alternative - Provider: Betzy Mckee RN) acetaminophen (TYLENOL) tablet 650 mg(Linked Group 1) 650 mg, Oral, EVERY 6 HOURS PRN, Pain Mild (1-3), Fever, For temp greater than 100.4 F (38 C), Starting on Sat12/13/21 at 1840, Maximum dose of acetaminophen is 4000 mg from all sources in 24 hours. 1301 (Given - Provider: Betzy Mckee RN) albuterol (PROVENTIL) nebulizer solution 2.5 mg 2.5 mg, Nebulization, EVERY 6 HOURS PRN, Wheezing, Starting on Radha 12/14/21 at 0638 bisacodyl (DULCOLAX) EC tablet 5 mg 5 mg, Oral, DAILY PRN, Constipation, Starting on Sat12/13/21 at 1840, First line therapy for constipation. LORazepam (ATIVAN) tablet 0.5 mg 0.5 mg, Oral, EVERY 4 HOURS PRN, Anxiety, Starting on Sat12/20/21 at 1256 magnesium sulfate 1000 mg in dextrose 5% 100 mL IVPB 1,000 mg, IntraVENous, at 100 mL/hr, Administer over 1 Hours, PRN, Other, Per IV Magnesium Replacement Protocol, Starting on Sat12/13/21 at 1840, Mg Lab Replacement Action 1.4-1.6 1 gram IVPB x 2 doses (2 gram Total) 1.0-1.3 1 gram IVPB x 4 doses (4 gram Total) <1.0 CALL PHYSICIAN and 1 gram IVPB x 4 doses (4 gram Total) Infuse at 1 gram/hr Repeat Mag level next AM Protocol not for use in Patients with CrCl<30ml/min morphine (PF) injection 2 mg 2 mg, IntraVENous, EVERY 4 HOURS PRN, Pain Severe (7-10), Starting on 12/16/21 at 1624, For 3 doses, If oral and IV narcotics ordered, use oral first and only use IV if oral is ineffective or cannot take oral. Do Not give oral and IV within 1 hour of each other unless specifically ordered. ondansetron (ZOFRAN) injection 4 mg(Linked Group 2) 4 mg, IntraVENous, EVERY 6 HOURS PRN, Nausea, Vomiting, Starting on Sat12/13/21 at 1840, Administer if oral route cannot be used. ondansetron (ZOFRAN-ODT) disintegrating tablet 4 mg(Linked Group 2) 4 mg, Oral, EVERY 8 HOURS PRN, Nausea, Vomiting, Starting on Sat12/13/21 at 1840 potassium bicarb-citric acid (EFFER-K) effervescent tablet 40 mEq(Linked Group 3) 40 mEq, Oral, PRN, Per Potassium Replacement Protocol, Starting on Sat12/13/21 at 1840, Administer as alternative if patient unable to tolerate oral tablet. K Lab Replacement Action 3.1 to 3.5 40 mEq ORAL x 1 Under 3.1 Refer to IV replacement protocol Recheck K level in AM. Protocol not for use in patients with CrCl less than 30 mL/min. Do not chew or crush. Dissolve flavored tablets completely in 3 to 4 ounces of cold water; unflavored tablets may be dissolved in 3 to 4 ounces of cold juice. Patient to sip slowly over a 5 to 10 minute period. May further dilute if GI adverse effects occur. potassium chloride (KLOR-CON M) extended release tablet 40 mEq(Linked Group 3) 40 mEq, Oral, PRN, Potassium Replacement, Starting on Sat12/13/21 at 1840, May give oral solution if patient unable to tolerate tablet. K Lab Replacement Action 3.1-3.5 40 mEq ORAL x 1 2.7-3.0 Refer to IV replacement orders < 2.7 Refer to IV replacement orders Recheck K level in AM. Not for use in patients with CrCl less than 30 mL/min. potassium chloride 10 mEq/100 mL IVPB (Peripheral Line)(Linked Group 3) 10 mEq, IntraVENous, at 100 mL/hr, PRN, Potassium Replacement, Starting on Sat12/13/21 at 1840, K Lab Replacement Action 2.7-3.0 10 mEq IVPB x 6 doses (60 mEq Total) < 2.7 CALL PHYSICIAN and 10 mEq IVPB x 6 doses (60 mEq Total) Infuse at 10 mEq/hr Repeat Potassium lab 1 hour after final administration. Not for use in patients with CrCl less than 30 mL/min. sodium chloride flush 0.9 % injection 10 mL 10 mL, IntraVENous, PRN, Line Care, After every IV line use, Starting on Sat12/13/21 at 1840 zolpidem (AMBIEN) tablet 5 mg 5 mg, Oral, NIGHTLY PRN, Sleep, Starting on Sat12/18/21 at 2100 2319 (Given - Provider: Nato Hsieh RN) Linked Groups Order Group 1: acetaminophen (TYLENOL) tablet 650 mgJump to med 650 mg, Oral, EVERY 6 HOURS PRN, Pain Mild (1-3), Fever, For temp greater than 100.4 F (38 C), Starting on Sat12/13/21 at 1840
Maximum dose of acetaminophen is 4000 mg from all sources in 24 hours.
Or acetaminophen (TYLENOL) suppository 650 mgJump to med 650 mg, Rectal, EVERY 6 HOURS PRN, Pain Mild (1-3), Fever, For temp greater than 100.4 F (38 C), Starting on Sat12/13/21 at 1840
Administer if oral route cannot be used.
Group 2: ondansetron (ZOFRAN-ODT) disintegrating tablet 4 mgJump to med 4 mg, Oral, EVERY 8 HOURS PRN, Nausea, Vomiting, Starting on Sat12/13/21 at 1840 Or ondansetron (ZOFRAN) injection 4 mgJump to med 4 mg, IntraVENous, EVERY 6 HOURS PRN, Nausea, Vomiting, Starting on Sat12/13/21 at 1840
Administer if oral route cannot be used.
Group 3: potassium chloride (KLOR-CON M) extended release tablet 40 mEqJump to med 40 mEq, Oral, PRN, Potassium Replacement, Starting on Sat12/13/21 at 1840
May give oral solution if patient unable to tolerate tablet. K Lab Replacement Action 3.1-3.5 40 mEq ORAL x 1 & nbsp; 2.7-3.0 Refer to IV replacement orders < 2.7 Refer to IV replacement orders Recheck K level in AM. Not for use in patients with CrCl less than 30 mL/min.
Or potassium bicarb-citric acid (EFFER-K) effervescent tablet 40 mEqJump to med 40 mEq, Oral, PRN, Per Potassium Replacement Protocol, Starting on Sat12/13/21 at 1840
Administer as alternative if patient unable to tolerate oral tablet. K Lab R eplac ement Action 3.1 to 3.5 40 mEq ORAL x 1 Under 3.1 Refer to IV replacement protocol Recheck K level in AM. Protocol not for use in patients with CrCl less than 30 mL/min. Do not chew or crush. Dissolve flavored tablets completely in 3 to 4 ounces of cold water; unflavored tablets may be dissolved in 3 to 4 ounces of cold juice. Patient to sip slowly over a 5 to 10 minute period. May further dilute if GI adverse effects occur.
Or potassium chloride 10 mEq/100 mL IVPB (Peripheral Line)Jump to med 10 mEq, IntraVENous, at 100 mL/hr, PRN, Potassium Replacement, Starting on Sat12/13/21 at 1840
K Lab Replacement Action 2.7-3.0 10 mEq IVPB x 6 doses (60 mEq Total) < 2.7 CALL PHYSICIAN and 10 mEq IVPB x 6 doses (60 mEq Total) Infuse at 10 mEq/hr Repeat Potassium lab 1 hour after final administration. Not for use in patients with CrCl less than 30 mL/min.
Scheduled Medication Order 01/04/2022 01/05/2022 01/06/2022 dalbavancin (DALVANCE) 1,500 mg in dextrose 5 % 500 mL IVPB (COMPLETED) 1,500 mg, IntraVENous, at 1,000 mL/hr, Administer over 30 Minutes, ONCE, On 01/06/22 at 1745, For 1 dose, Dalbavancin (DALVANCE) not compatible with NS or any saline-based solution. Final solution concentration range from 1 mg/mL to 5 mg/mL. Infuse over 30 minutes. If a common IV line is being used to administer other drugs in addition to dalbavancin, the line should be flushed before and after each infusion with D5W. 1807 (New Bag - Prov ider: Sanjuana Serrano RN)1914 (Stopped - Provider: Sanjuana Serrano RN) Scheduled Medication Order 01/08/2022 01/09/2022 01/10/2022 naloxone (NARCAN) injection 2 mg (COMPLETED) 2 mg, IntraMUSCular, ONCE, On Sat01/10/22 at 1830, For 1 dose 1821 (Given - Provid er: Suze Duffy RN) ondansetron (ZOFRAN) injection 4 mg (COMPLETED) 4 mg, IntraMUSCular, ONCE, On Sat01/10/22 at 1830, For 1 dose 182 (Given - Provid er: Suze Duffy RN) Scheduled Medication Order 01/18/2022 01/19/2022 01/20/2022 0.9 % sodium chloride IV bolus 2,190 mL (COMPLETED) 2,190 mL (30 mL/kg 73 kg), IntraVENous, at 4,380 mL/hr, Administer over 30 Minutes, ONCE, On 01/20/22 at 1700, For 1 dose 1611 (New Bag - Prov ider: Suze Duffy RN)1851 (Stopped - Provider: Suze Duffy RN) acetaminophen (TYLENOL) tablet 650 mg (COMPLETED) 650 mg, Oral, ONCE, On 01/20/22 at 1730, For 1 dose, Maximum dose of acetaminophen is 4000 mg from all sources in 24 hours. 1727 (Given - Provid er: Alessandra Gross RN) diphenhydrAMINE (BENADRYL) injection 50 mg (COMPLETED) 50 mg, IntraVENous, ONCE, On 01/20/22 at 1700, For 1 dose 1706 (Given - Provid er: Suze Duffy RN) famotidine (PEPCID) injection 20 mg (COMPLETED) 20 mg, IntraVENous, ONCE, On 01/20/22 at 1700, For 1 dose, IV Push over minimum of 2 minutes - Dilute with 10 mL NS 170 (Given - Provid er: Suze Duffy RN) linezolid (ZYVOX) IVPB 600 mg 600 mg, IntraVENous, at 300 mL/hr, Administer over 60 Minutes, EVERY 12 HOURS, First dose on 01/20/22 at 1745, Avoid aged, smoked, or fermented foods including cheese, sour cream, soy sauce, sauerkraut, yogurt, sausage, pepperoni, salami, and dried fruit. Limit caffeine. 1809 (New Bag - Prov ider: Suze Duffy RN)1933 (Stopped - Provider: Suze Duffy RN) methylPREDNISolone sodium (SOLU-MEDROL) injection 125 mg (COMPLETED) 125 mg, IntraVENous, ONCE, On 01/20/22 at 1700, For 1 dose 1704 (Given - Provid er: Suze Duffy RN) vancomycin (VANCOCIN) 1,500 mg in dextrose 5 % 250 mL IVPB (COMPLETED) 1,500 mg, IntraVENous, at 166.7 mL/hr, Administer over 90 Minutes, ONCE, On 01/20/22 at 1600, For 1 dose 1618 (New Bag - Prov ider: Suze Duffy RN)1656 (Stopped - Provider: Suze Duffy RN) Continuous Medication Order 01/18/2022 01/19/2022 01/20/2022 0.9 % sodium chloride infusion 1,000 mL, IntraVENous, at 125 mL/hr, Administer over 8 Hours, CONTINUOUS, Starting on 01/20/22 at 1415 1518 (New Bag - Prov ider: Suze Duffy RN)1933 (Stopped - Provider: Suze Duffy RN) PRN Medication Order 01/18/2022 01/19/2022 01/20/2022 iopamidol (ISOVUE-370) 76 % injection 75 mL (COMPLETED) 75 mL, IntraVENous, IMG ONCE PRN, Other, Starting on 01/20/22 at 1924, For 1 dose 1924 (Given - Provid er: Jaida Shoemaker) Scheduled Medication Order 01/28/2022 01/29/2022 01/30/2022 0.9 % sodium chloride bolus (COMPLETED) 500 mL (6.19 mL/kg), IntraVENous, at 247.9 mL/hr, Administer over 121 Minutes, ONCE, On Sat01/28/22 at 1445, For 1 dose 1422 (New Bag - Provider: Sophia Bui RN)1755 (Stopped - Provider: Sophia Bui RN) bupivacaine liposome (EXPAREL) 1.3 % injection 133 mg 133 mg (10 mL), Infiltration, ONCE, On Sat01/26/22 at 1545, For 1 dose caspofungin (CANCIDAS) 150 mg in sodium chloride 0.9 % 250 mL IVPB 150 mg, IntraVENous, EVERY 24 HOURS, First dose on Radha 01/25/22 at 1030, Until Discontinued 2232 (New Bag - Provider: Cameron Barrios RN)2340 (Stopped - Provider: Cameron Barrios RN) 2245 (New Bag - Provider: Ross Lan RN) 0002 (Stopped - Provider: Ross Lan RN)2200 (Due - Provider: Ethel Christensen [facility]) doxycycline hyclate (VIBRA-TABS) tablet 100 mg (CANCELED) 100 mg, Oral, EVERY 12 HOURS SCHEDULED (2 times per day), First dose on [facility] 01/27/22 at 0900, This medication can interact with tube feedings (TF)- obtain MD order to manage. Recommend holding TF for 1 h before and 2 h after dose. Take 1 h before or 2 h after dairy, calcium, iron, magnesium, aluminum or zinc. 0929 (Given - Provider: Dunia Hernandez RN) enoxaparin (LOVENOX) injection 40 mg 40 mg, SubCUTAneous, DAILY, First dose on Sat01/21/22 at 0900 0930 (Given - Provider: Dunia Hernandez RN) 0815 (Given - Provider: Ambreen Ramírez RN) 0846 (Not Given - Provider: Elvin Ricketts RN - Reason: Patient/family refused) fluticasone (FLONASE) 50 MCG/ACT nasal spray 1 spray 1 spray, Each Nostril, DAILY, First dose on Sat01/30/22 at 1030 1034 (Given - Provider: Elvin Ricketts RN) guaiFENesin (MUCINEX) extended release tablet 600 mg 600 mg, Oral, 2 TIMES DAILY, First dose on Sat01/30/22 at 1030, Do not crush or break. 1034 (Given - Provider: Elvin Ricketts RN)2100 (Due) levoFLOXacin (LEVAQUIN) tablet 500 mg 500 mg, Oral, DAILY, First dose on Sat01/30/22 at 0900, Do not take with dairy products or calcium-fortified juices. Tube feeding (TF) interaction, obtain physician order to manage. Recommend holding TF for 2 hrs before and 2 hrs after dose. Due to decreased absorption do not give by J tube. 0846 (Given - Provider: Elvin Ricketts, ANSELMO) metoprolol (LOPRESSOR) injection 5 mg (COMPLETED) 5 mg, IntraVENous, ONCE, On Sat01/28/22 at 0715, For 1 dose, DO NOT ADMINISTER IF HEART RATE LESS THAN 60 0722 (Given - Provider: Cameron Barrios, RN) sodium chloride flush 0.9 % injection 5-40 mL 5-40 mL, IntraVENous, EVERY 12 HOURS SCHEDULED (2 times per day), First dose on Sat01/26/22 at 2100, For Line Patency: Peripheral IV = 5 mL; Midline or Central Line = 10 mL/lumen. If following IV push medication, administer flush at same rate as the IV push. Flush volume is determined by type of infusion therapy being given. For non-viscous solutions use: Peripheral IV = 5 mL Midline or Central Line = 10 mL/lumen For viscous solutions (i.e. blood components, parenteral nutrition, contrast media, or after obtaining blood sample) use: Peripheral IV = 10 mL Midline or Central Line = 20 mL/lumen, Recovery(Cath) 0930 (Given - Provider: Dunia Hernandez RN)1920 (Given - Provider: Cameron Barrios, RN) 0815 (Given - Provider: Ambreen Ramírez, ANSELMO)2105 (Not Given - Provider: Ross Lan RN - Reason: IV Fluid Infusing) 0847 (Not Given - Provider: Elvin Ricketts RN - Reason: Other - Comment: duplicate order)2100 (Due) sodium chloride flush 0.9 % injection 5-40 mL (CANCELED) 5-40 mL, IntraVENous, EVERY 12 HOURS SCHEDULED (2 times per day), First dose on Sat01/25/22 at 1115, For Line Patency: Peripheral IV = 5 mL; Midline or Central Line = 10 mL/lumen. If following IV push medication, administer flush at same rate as the IV push. Flush volume is determined by type of infusion therapy being given. For non-viscous solutions use: Peripheral IV = 5 mL Midline or Central Line = 10 mL/lumen For viscous solutions (i.e. blood components, parenteral nutrition, contrast media, or after obtaining blood sample) use: Peripheral IV = 10 mL Midline or Central Line = 20 mL/lumen 0930 (Given - Provider: Dunia Hernandez RN)1920 (Not Given - Provider: Cameron Barrios RN - Reason: IV Fluid Infusing) 0815 (Given - Provider: Ambreen Ramírez, RN)2045 (Not Given - Provider: Ross Lan RN - Reason: IV Fluid Infusing) 0847 (Given - Provider: Elvin Ricketts, RN)0900 (Canceled Entry - Provider: Elvin Ricketts RN) tigecycline (TYGACIL) 100 mg in sodium chloride 0.9 % 100 mL IVPB (COMPLETED) 100 mg, IntraVENous, at 100 mL/hr, Administer over 60 Minutes, ONCE, On 01/28/22 at 1400, For 1 dose, Start once blood cultures have been obtained. 1446 (New Bag - Provider: Sophia Bui RN)1622 (Stopped - Provider: Sophia Bui RN) tigecycline (TYGACIL) 50 mg in sodium chloride 0.9 % 100 mL IVPB (CANCELED) 50 mg, IntraVENous, at 100 mL/hr, Administer over 60 Minutes, EVERY 12 HOURS, First dose on Sat01/29/22 at 0200 0238 (New Bag - Provider: Cameron Barrios RN)0342 (Stopped - Provider: Cameron Barrios RN)1404 (New Bag - Provider: Ambreen Ramírez, ANSELMO)1528 (Stopped - Provider: Ambreen Ramírez, ANSELMO) Continuous Medication Order 01/28/2022 01/29/2022 01/30/2022 0.9 % sodium chloride infusion (CANCELED) IntraVENous, at 100 mL/hr, CONTINUOUS, Starting on Sat01/28/22 at 1130 1114 (New Bag - Provider: Dunia Hernandez RN)1756 (New Bag - Provider: Sophia Bui RN) 0239 (New Bag - Provider: Cameron Barrios RN)1406 (New Bag - Provider: Ambreen Ramírez, ANSELMO) 0914 (Stopped - Provider: Elvin Ricketts, RN) PRN Medication Order 01/28/2022 01/29/2022 01/30/2022 0.9 % sodium chloride infusion 25 mL, IntraVENous, at 100 mL/hr, PRN, If patient receiving piggyback infusions without ordered maintenance IV fluids or with frequent/long duration piggyback infusions, Starting on Radha 01/25/22 at 1044, Administer at the same rate as the piggyback being infused. 1516 (Stopped - Provider: Elvin Ricketts, ANSELMO) acetaminophen (TYLENOL) suppository 650 mg(Linked Group 1) 650 mg, Rectal, EVERY 6 HOURS PRN, Pain Mild (1-3), Fever, For temp greater than 100.4 F (38 C), Starting on 01/20/22 at 2236, Administer if oral route cannot be used. 1105 (See Alternative - Provider: Dunia Hernandez RN)1738 (See Alternative - Provider: Sophia Bui, ANSELMO) 1846 (See Alternative - Provider: Ambreen Ramírez, ANSELMO) 1612 (See Alternative - Provider: Elvin Ricketts, ANSELMO) acetaminophen (TYLENOL) tablet 650 mg(Linked Group 1) 650 mg, Oral, EVERY 6 HOURS PRN, Pain Mild (1-3), Fever, For temp greater than 100.4 F (38 C), Starting on 01/20/22 at 2236, Maximum dose of acetaminophen is 4000 mg from all sources in 24 hours. Give on with a dose 15 minutes before amphotericin B 1105 (Given - Provider: Dunia Hernandez RN - Comment: 39.1F)1738 (Given - Provider: Sophia Bui RN) 184 (Given - Provider: Ambreen Ramírez, ANSELMO) 1612 (Given - Provider: Elvin Ricketts, ANSELMO) albuterol sulfate HFA 108 (90 Base) MCG/ACT inhaler 2 puff 2 puff, Inhalation, EVERY 4 HOURS PRN, Wheezing, Starting on 01/28/22 at 0830 aluminum & magnesium hydroxide-simethicone (MAALOX) 200-200-20 MG/5ML suspension 30 mL 30 mL, Oral, EVERY 6 HOURS PRN, Indigestion, Starting on 01/29/22 at 2034 2045 (Given - Provider: Ross Lan RN) dextrose 5 % solution 100 mL/hr, IntraVENous, PRN, Low blood sugar, Starting on 01/21/22 at 1329, Start infusion following administration of dextrose 50% or glucagon. dextrose 50 % IV solution 12.5 g, IntraVENous, PRN, Low blood sugar, Blood glucose less than 70 mg/dL and patient NOT ALERT or NPO., Starting on 01/21/22 at 1329, If patient does not respond within 5 minutes, repeat dose x1. Start D5W at 100 mL/hour until ordering provider can be reached. Repeat blood glucose in 15 minutes. If blood glucose is less than 70 mg/dL, repeat treatment and recheck blood glucose in 15 minutes x2. If using Glucostabilizer, dose as instructed per system. diphenhydrAMINE (BENADRYL) injection 25 mg 25 mg, IntraVENous, EVERY 6 HOURS PRN, Itching, Starting on Radha 01/25/22 at 2159, Give always a dose 15 minutes before the amphotericin glucagon (rDNA) injection 1 mg 1 mg, IntraMUSCular, PRN, Low blood sugar, Blood glucose less than 70 mg/dL and patient NOT ALERT or NPO and does not have IV access., Starting on 01/21/22 at 1329, After administration, attempt intravenous access and start D5W at 100 mL/hr. Repeat blood glucose in 15 minutes x2 and notify provider. glucose (GLUTOSE) 40 % oral gel 15 g 15 g, Oral, PRN, Low blood sugar, Starting on 01/21/22 at 1329, If blood glucose less than 50 mg/dL and patient ALERT and TOLERATING PO, give 2 tubes glucose gel. If blood glucose less than 70 mg/dL and patient ALERT and TOLERATING PO, give 1 tube glucose gel. Repeat blood glucose in 15 minutes. If blood glucose is less than 70 mg/dL, repeat treatment and recheck blood glucose in 15 minutes x2 and notify provider. hydrOXYzine (ATARAX) tablet 25 mg 25 mg, Oral, 3 TIMES DAILY PRN, Itching, Starting on 01/20/22 at 2236 1936 (Given - Provider: Cameron Barrios, RN) ketorolac (TORADOL) injection 30 mg 30 mg, IntraVENous, EVERY 6 HOURS PRN, Pain Severe (7-10), Starting on 01/27/22 at 1104, For 5 days, Do not administer for more than 5 days. 0602 (Given - Provider: Cameron Barrios, RN)1936 (Given - Provider: Cameron Barrios, RN) magnesium hydroxide (MILK OF MAGNESIA) 400 MG/5ML suspension 30 mL 30 mL, Oral, 2 TIMES DAILY PRN, Constipation, 1st dose now, Starting on 01/28/22 at 0830 0929 (Given - Provider: Dunia Hernandez RN) magnesium sulfate 1000 mg in dextrose 5% 100 mL IVPB 1,000 mg, IntraVENous, at 100 mL/hr, Administer over 1 Hours, PRN, Other, Per IV Magnesium Replacement Protocol, Starting on 01/20/22 at 2236, Mg Lab Replacement Action 1.4-1.6 1 gram IVPB x 2 doses (2 gram Total) 1.0-1.3 1 gram IVPB x 4 doses (4 gram Total) <1.0 CALL PHYSICIAN and 1 gram IVPB x 4 doses (4 gram Total) Infuse at 1 gram/hr Repeat Mag level next AM Protocol not for use in Patients with CrCl<30ml/min melatonin tablet 3 mg 3 mg, Oral, NIGHTLY PRN, Sleep, Starting on 01/21/22 at 2100 ondansetron (ZOFRAN) injection 4 mg(Linked Group 2) 4 mg, IntraVENous, EVERY 6 HOURS PRN, Nausea, Vomiting, Starting on 01/20/22 at 2236, Administer if oral route cannot be used. ondansetron (ZOFRAN-ODT) disintegrating tablet 4 mg(Linked Group 2) 4 mg, Oral, EVERY 8 HOURS PRN, Nausea, Vomiting, Starting on 01/20/22 at 2236 polyethylene glycol (GLYCOLAX) packet 17 g 17 g, Oral, DAILY PRN, Constipation, Starting on 01/20/22 at 2236, First line therapy for constipation potassium bicarb-citric acid (EFFER-K) effervescent tablet 40 mEq(Linked Group 3) 40 mEq, Oral, PRN, Per Potassium Replacement Protocol, Starting on 01/20/22 at 2236, Administer as alternative if patient unable to tolerate oral tablet. K Lab Replacement Action 3.1 to 3.5 40 mEq ORAL x 1 Under 3.1 Refer to IV replacement protocol Recheck K level in AM. Protocol not for use in patients with CrCl less than 30 mL/min. Do not chew or crush. Dissolve flavored tablets completely in 3 to 4 ounces of cold water; unflavored tablets may be dissolved in 3 to 4 ounces of cold juice. Patient to sip slowly over a 5 to 10 minute period. May further dilute if GI adverse effects occur. 0547 (See Alternative - Provider: Cameron Barrios RN)1303 (See Alternative - Provider: Sophia Bui, RN) potassium chloride (KLOR-CON M) extended release tablet 40 mEq(Linked Group 3) 40 mEq, Oral, PRN, Potassium Replacement, Starting on 01/20/22 at 2236, May give oral solution if patient unable to tolerate tablet. K Lab Replacement Action 3.1-3.5 40 mEq ORAL x 1 2.7-3.0 Refer to IV replacement orders < 2.7 Refer to IV replacement orders Recheck K level in AM. Not for use in patients with CrCl less than 30 mL/min. 0547 (Given - Provider: Cameron Barrios RN)1303 (Given - Provider: Sophia Bui, RN) potassium chloride 10 mEq/100 mL IVPB (Peripheral Line)(Linked Group 3) 10 mEq, IntraVENous, at 100 mL/hr, PRN, Potassium Replacement, Starting on 01/20/22 at 2236, K Lab Replacement Action 2.7-3.0 10 mEq IVPB x 6 doses (60 mEq Total) < 2.7 CALL PHYSICIAN and 10 mEq IVPB x 6 doses (60 mEq Total) Infuse at 10 mEq/hr Repeat Potassium lab 1 hour after final administration. Not for use in patients with CrCl less than 30 mL/min. 0547 (See Alternative - Provider: Cameron Barrios RN)1303 (See Alternative - Provider: Sophia Bui, RN) sodium chloride flush 0.9 % injection 5-40 mL 5-40 mL, IntraVENous, PRN, Line Care, Starting on Sat01/26/22 at 1820, For Line Patency: Peripheral IV = 5 mL; Midline or Central Line = 10 mL/lumen. If following IV push medication, administer flush at same rate as the IV push. Flush volume is determined by type of infusion therapy being given. For non-viscous solutions use: Peripheral IV = 5 mL Midline or Central Line = 10 mL/lumen For viscous solutions (i.e. blood components, parenteral nutrition, contrast media, or after obtaining blood sample) use: Peripheral IV = 10 mL Midline or Central Line = 20 mL/lumen, Recovery(Cath) sodium chloride flush 0.9 % injection 5-40 mL 5-40 mL, IntraVENous, PRN, Line Care, Starting on Radha 01/25/22 at 1044, For Line Patency: Peripheral IV = 5 mL; Midline or Central Line = 10 mL/lumen. If following IV push medication, administer flush at same rate as the IV push. Flush volume is determined by type of infusion therapy being given. For non-viscous solutions use: Peripheral IV = 5 mL Midline or Central Line = 10 mL/lumen For viscous solutions (i.e. blood components, parenteral nutrition, contrast media, or after obtaining blood sample) use: Peripheral IV = 10 mL Midline or Central Line = 20 mL/lumen traZODone (DESYREL) tablet 50 mg 50 mg, Oral, NIGHTLY PRN, Sleep, Starting on 01/22/22 at 2100 0429 (Given - Provider: Cameron Barrios RN) Linked Groups Order Group 1: acetaminophen (TYLENOL) tablet 650 mgJump to med 650 mg, Oral, EVERY 6 HOURS PRN, Pain Mild (1-3), Fever, For temp greater than 100.4 F (38 C), Starting on 01/20/22 at 2236
Maximum dose of acetaminophen is 4000 mg from all sources in 24 hours. Give on with a dose 15 minutes before amphotericin B
Or acetaminophen (TYLENOL) suppository 650 mgJump to med 650 mg, Rectal, EVERY 6 HOURS PRN, Pain Mild (1-3), Fever, For temp greater than 100.4 F (38 C), Starting on 01/20/22 at 2236
Administer if oral route cannot be used.
Group 2: ondansetron (ZOFRAN-ODT) disintegrating tablet 4 mgJump to med 4 mg, Oral, EVERY 8 HOURS PRN, Nausea, Vomiting, Starting on 01/20/22 at 2236 Or ondansetron (ZOFRAN) injection 4 mgJump to med 4 mg, IntraVENous, EVERY 6 HOURS PRN, Nausea, Vomiting, Starting on 01/20/22 at 2236
Administer if oral route cannot be used.
Group 3: potassium chloride (KLOR-CON M) extended release tablet 40 mEqJump to med 40 mEq, Oral, PRN, Potassium Replacement, Starting on 01/20/22 at 2236
May give oral solution if patient unable to tolerate tablet. K Lab Replacement Action 3.1-3.5 40 mEq ORAL x 1 & nbsp; 2.7-3.0 Refer to IV replacement orders < 2.7 Refer to IV replacement orders Recheck K level in AM. Not for use in patients with CrCl less than 30 mL/min.
Or potassium bicarb-citric acid (EFFER-K) effervescent tablet 40 mEqJump to med 40 mEq, Oral, PRN, Per Potassium Replacement Protocol, Starting on 01/20/22 at 2236
Administer as alternative if patient unable to tolerate oral tablet. K Lab R eplac ement Action 3.1 to 3.5 40 mEq ORAL x 1 Under 3.1 Refer to IV replacement protocol Recheck K level in AM. Protocol not for use in patients with CrCl less than 30 mL/min. Do not chew or crush. Dissolve flavored tablets completely in 3 to 4 ounces of cold water; unflavored tablets may be dissolved in 3 to 4 ounces of cold juice. Patient to sip slowly over a 5 to 10 minute period. May further dilute if GI adverse effects occur.
Or potassium chloride 10 mEq/100 mL IVPB (Peripheral Line)Jump to med 10 mEq, IntraVENous, at 100 mL/hr, PRN, Potassium Replacement, Starting on 01/20/22 at 2236
K Lab Replacement Action 2.7-3.0 10 mEq IVPB x 6 doses (60 mEq Total) < 2.7 CALL PHYSICIAN and 10 mEq IVPB x 6 doses (60 mEq Total) Infuse at 10 mEq/hr Repeat Potassium lab 1 hour after final administration. Not for use in patients with CrCl less than 30 mL/min.
Scheduled Medication Order 05/04/2022 05/05/2022 05/06/2022 tigecycline (TYGACIL) 100 mg in sodium chloride 0.9 % 100 mL IVPB 100 mg, IntraVENous, at 100 mL/hr, Administer over 60 Minutes, EVERY 12 HOURS, First dose on 05/06/22 at 0015 0103 (Not Given - Pr ovider: Dolly Thomas RN - Reason: Other - Comment: Medication is not available in [facility])1215 (Due) PRN Medication Order 05/04/2022 05/05/2022 05/06/2022 iopamidol (ISOVUE-370) 76 % injection 75 mL (COMPLETED) 75 mL, IntraVENous, IMG ONCE PRN, 1 dose, Starting on 05/05/22 at 2047, Until 05/05/22 at 2055, Other 2055 (Given - Provider: Joey Arriaga) Scheduled Medication Order 05/06/2022 05/07/2022 05/08/2022 enoxaparin (LOVENOX) injection 40 mg 40 mg, SubCUTAneous, DAILY, First dose on 05/06/22 at 0900, Until Discontinued, Indication of Use: Prophylaxis-DVT/PE 0752 (Not Given - Provider: Jason Sunshine RN - Reason: Patient/family refused) 0813 (Not Given - Provider: Jason Sunshine RN - Reason: Patient/family refused) 0811 (Given - Provider: Ana Tiwari RN) sodium chloride flush 0.9 % injection 5-40 mL 5-40 mL, IntraVENous, EVERY 12 HOURS SCHEDULED (2 times per day), First dose on 05/06/22 at 0900, Until Discontinued, For Line Patency: Peripheral IV = 5 mL; Midline or Central Line = 10 mL/lumen. If following IV push medication, administer flush at same rate as the IV push. Flush volume is determined by type of infusion therapy being given. For non-viscous solutions use: Peripheral IV = 5 mL Midline or Central Line = 10 mL/lumen For viscous solutions (i.e. blood components, parenteral nutrition, contrast media, or after obtaining blood sample) use: Peripheral IV = 10 mL Midline or Central Line = 20 mL/lumen 0943 (Not Given - Provider: Jason Sunshine, RN - Reason: IV Fluid Infusing)2153 (Given - Provider: Razia Rivera, ANSELMO) 0811 (Not Given - Provider: Jason Sunshine RN - Reason: IV Fluid Infusing)2103 (Given - Provider: Teetee Rodrigez RN) 0811 (Given - Provider: Ana Tiwari RN)2100 (Due) tigecycline (TYGACIL) 100 mg in sodium chloride 0.9 % 100 mL IVPB (COMPLETED) 100 mg, IntraVENous, at 100 mL/hr, Administer over 60 Minutes, ONCE, On 05/06/22 at 0700, For 1 dose 0723 (New Bag - Provider: Christy Chew RN)0823 (Stopped - Provider: Jason Sunshine, ANSELMO) tigecycline (TYGACIL) 50 mg in sodium chloride 0.9 % 100 mL IVPB (CANCELED) 50 mg, IntraVENous, at 100 mL/hr, Administer over 60 Minutes, EVERY 12 HOURS, First dose on 05/06/22 at 1900 1931 (New Bag - Provider: Razia Rivera, ANSELMO)2051 (Stopped - Provider: Razia Rivera, RN) 0614 (New Bag - Provider: Razia Rivera, RN)0714 (Stopped - Provider: Jason Sunshine, RN) PRN Medication Order 05/06/2022 05/07/2022 05/08/2022 0.9 % sodium chloride infusion IntraVENous, at 5-250 mL/hr, PRN, if patient receiving piggyback infusions and maintenance fluids are not ordered OR KVO fluids to protect IV site / prevent frequent line interruptions/ long duration, Starting on 05/06/22 at 0533, For piggyback infusion, administer at same rate as piggyback for a total of 25 mL. Enter 25 mL into dose field and piggyback rate into rate field of order. If piggyback is infusing at a rate less than 100 mL/hr, enter 25 mL into dose field and 100 mL/hr into rate field of order. For KVO fluids, enter rate of 20 mL/hr or less into rate field of order. acetaminophen (TYLENOL) suppository 650 mg(Linked Group 1) 650 mg, Rectal, EVERY 6 HOURS PRN, Starting on 05/06/22 at 0533, Until Discontinued, Pain Mild (1-3), Fever, For temp greater than 100.4 F (38 C), Administer if oral route cannot be used. 1605 (See Alternative - Provider: Jason Sunshine RN) acetaminophen (TYLENOL) tablet 650 mg(Linked Group 1) 650 mg, Oral, EVERY 6 HOURS PRN, Starting on 05/06/22 at 0533, Until Discontinued, Pain Mild (1-3), Fever, For temp greater than 100.4 F (38 C), Maximum dose of acetaminophen is 4000 mg from all sources in 24 hours. 1605 (Given - Provider: Jason Sunshine, ANSELMO) LORazepam (ATIVAN) tablet 1 mg 1 mg, Oral, EVERY 4 HOURS PRN, Starting on 05/06/22 at 1435, Until Discontinued, Anxiety, or withdrawl symptoms 1744 (Given - Provider: Jason Sunshnie RN) 0245 (Given - Provider: Razia Rivera RN)1605 (Given - Provider: Jason Sunshine RN)2103 (Given - Provider: Teetee Rodrigez, ANSELMO) 0105 (Given - Provider: Teetee Rodrigez, RN) magnesium sulfate 1000 mg in dextrose 5% 100 mL IVPB 1,000 mg, IntraVENous, at 100 mL/hr, Administer over 1 Hours, PRN, Other, Per IV Magnesium Replacement Protocol, Starting on 05/06/22 at 0533, Mg Lab Replacement Action 1.4-1.6 1 gram IVPB x 2 doses (2 gram Total) 1.0-1.3 1 gram IVPB x 4 doses (4 gram Total) <1.0 CALL PHYSICIAN and 1 gram IVPB x 4 doses (4 gram Total) Infuse at 1 gram/hr Repeat Mag level next AM Protocol not for use in Patients with CrCl<30ml/min ondansetron (ZOFRAN) injection 4 mg(Linked Group 2) 4 mg, IntraVENous, EVERY 6 HOURS PRN, Starting on 05/06/22 at 0533, Until Discontinued, Nausea, Vomiting, Administer if oral route cannot be used. 0245 (See Alternative - Provider: Razia Rivera RN)1605 (See Alternative - Provider: Jason Sunshine, RN) ondansetron (ZOFRAN-ODT) disintegrating tablet 4 mg(Linked Group 2) 4 mg, Oral, EVERY 8 HOURS PRN, Starting on 05/06/22 at 0533, Until Discontinued, Nausea, Vomiting 0245 (Given - Provider: Razia Rivera RN)1605 (Given - Provider: Jason Sunshine, ANSELMO) polyethylene glycol (GLYCOLAX) packet 17 g 17 g, Oral, DAILY PRN, Starting on 05/06/22 at 0533, Until Discontinued, Constipation, First line therapy for constipation potassium bicarb-citric acid (EFFER-K) effervescent tablet 40 mEq(Linked Group 3) 40 mEq, Oral, PRN, Starting on 05/06/22 at 0533, Until Discontinued, Per Potassium Replacement Protocol, Administer as alternative if patient unable to tolerate oral tablet. K Lab Replacement Action 3.1 to 3.5 40 mEq ORAL x 1 Under 3.1 Refer to IV replacement protocol Recheck K level in AM. Protocol not for use in patients with CrCl less than 30 mL/min. Do not chew or crush. Dissolve flavored tablets completely in 3 to 4 ounces of cold water; unflavored tablets may be dissolved in 3 to 4 ounces of cold juice. Patient to sip slowly over a 5 to 10 minute period. May further dilute if GI adverse effects occur. potassium chloride (KLOR-CON M) extended release tablet 40 mEq(Linked Group 3) 40 mEq, Oral, PRN, Starting on 05/06/22 at 0533, Until Discontinued, Potassium Replacement, May give oral solution if patient unable to tolerate tablet. K Lab Replacement Action 3.1-3.5 40 mEq ORAL x 1 2.7-3.0 Refer to IV replacement orders < 2.7 Refer to IV replacement orders Recheck K level in AM. Not for use in patients with CrCl less than 30 mL/min. potassium chloride 10 mEq/100 mL IVPB (Peripheral Line)(Linked Group 3) 10 mEq, IntraVENous, PRN, Starting on 05/06/22 at 0533, Until Discontinued, at 100 mL/hr, Potassium Replacement, K Lab Replacement Action 2.7-3.0 10 mEq IVPB x 6 doses (60 mEq Total) < 2.7 CALL PHYSICIAN and 10 mEq IVPB x 6 doses (60 mEq Total) Infuse at 10 mEq/hr Repeat Potassium lab 1 hour after final administration. Not for use in patients with CrCl less than 30 mL/min. promethazine (PHENERGAN) injection 12.5 mg Only to be given as IM injection., 12.5 mg, IntraMUSCular, EVERY 6 HOURS PRN, Starting on 05/07/22 at 2116, Until Discontinued, Nausea, Only to be given as IM injection. 2211 (Given - Provider: Teetee Rodrigez RN) sodium chloride flush 0.9 % injection 10 mL 10 mL, IntraVENous, PRN, Starting on 05/06/22 at 0533, Until Discontinued, Line Care, After every IV line use 0752 (Given - Provider: Jason Sunshine RN) Linked Groups Order Group 1: acetaminophen (TYLENOL) tablet 650 mgJump to med 650 mg, Oral, EVERY 6 HOURS PRN, Starting on 05/06/22 at 0533, Until Discontinued, Pain Mild (1-3), Fever, For temp greater than 100.4 F (38 C)
Maximum dose of acetaminophen is 4000 mg from all sources in 24 hours.
Or acetaminophen (TYLENOL) suppository 650 mgJump to med 650 mg, Rectal, EVERY 6 HOURS PRN, Starting on 05/06/22 at 0533, Until Discontinued, Pain Mild (1-3), Fever, For temp greater than 100.4 F (38 C)
Administer if oral route cannot be used.
Group 2: ondansetron (ZOFRAN-ODT) disintegrating tablet 4 mgJump to med 4 mg, Oral, EVERY 8 HOURS PRN, Starting on 05/06/22 at 0533, Until Discontinued, Nausea, Vomiting Or ondansetron (ZOFRAN) injection 4 mgJump to med 4 mg, IntraVENous, EVERY 6 HOURS PRN, Starting on 05/06/22 at 0533, Until Discontinued, Nausea, Vomiting
Administer if oral route cannot be used.
Group 3: potassium chloride (KLOR-CON M) extended release tablet 40 mEqJump to med 40 mEq, Oral, PRN, Starting on 05/06/22 at 0533, Until Discontinued, Potassium Replacement
May give oral solution if patient unable to tolerate tablet. K Lab Replacement Action 3.1-3.5 40 mEq ORAL x 1 & nbsp; 2.7-3.0 Refer to IV replacement orders < 2.7 Refer to IV replacement orders Recheck K level in AM. Not for use in patients with CrCl less than 30 mL/min.
Or potassium bicarb-citric acid (EFFER-K) effervescent tablet 40 mEqJump to med 40 mEq, Oral, PRN, Starting on 05/06/22 at 0533, Until Discontinued, Per Potassium Replacement Protocol
Administer as alternative if patient unable to tolerate oral tablet. K Lab Repla cemen t Action 3.1 to 3.5 40 mEq ORAL x 1 Under 3.1 Refer to IV replacement protocol Recheck K level in AM. Protocol not for use in patients with CrCl less than 30 mL/min. Do not chew or crush. Dissolve flavored tablets completely in 3 to 4 ounces of cold water; unflavored tablets may be dissolved in 3 to 4 ounces of cold juice. Patient to sip slowly over a 5 to 10 minute period. May further dilute if GI adverse effects occur.
Or potassium chloride 10 mEq/100 mL IVPB (Peripheral Line)Jump to med 10 mEq, IntraVENous, PRN, Starting on Sat05/06/22 at 0533, Until Discontinued, at 100 mL/hr, Potassium Replacement
K Lab Replacement Action 2.7-3.0 10 mEq IVPB x 6 doses (60 mEq Total) < 2.7 CALL PHYSICIAN and 10 mEq IVPB x 6 doses (60 mEq Total) Infuse at 10 mEq/hr Repeat Potassium lab 1 hour after final administration. Not for use in patients with CrCl less than 30 mL/min.
Scheduled Medication Order 06/19/2022 06/20/2022 06/21/2022 diphenhydrAMINE (BENADRYL) tablet 12.5 mg 12.5 mg, Oral, 2 times daily, First dose on 06/18/22 at 1215, Until Discontinued, Pls give 15 min before each dose of vanco 0435 (Given - Provider: Jennifer Robins RN)1701 (Given - Provider: Audra Astudillo RN) 0359 (Given - Provider: Raymond Doshi RN)1648 (Given - Provider: Audra Astudillo RN) 0451 (Given - Provider: Abi Ha RN)1645 (Due - Provider: Fahad Frances [facility]) enoxaparin (LOVENOX) injection 40 mg 40 mg, SubCUTAneous, DAILY, First dose on Sat06/16/22 at 0900, Until Discontinued, Indication of Use: Prophylaxis-DVT/PE 1015 (Given - Provider: Audra Astudillo RN - Comment: patient request) 0844 (Given - Provider: Audra Astudillo RN) 0956 (Given - Provider: Clement Granger RN) fluconazole (DIFLUCAN) tablet 400 mg 400 mg, Oral, DAILY, First dose on Sat06/18/22 at 1300, Until Discontinued, Antimicrobial Indications: Endocarditis/Endovascula r 1015 (Given - Provider: Audra Astudillo RN - Comment: patient request) 0843 (Given - Provider: Audra Astudillo RN) 0913 (Given - Provider: Clement Granger, ANSELMO) sodium chloride flush 0.9 % injection 5-40 mL 5-40 mL, IntraVENous, EVERY 12 HOURS SCHEDULED (2 times per day), First dose on Sat06/15/22 at 2100, Until Discontinued, For Line Patency: Peripheral IV = 5 mL; Midline or Central Line = 10 mL/lumen. If following IV push medication, administer flush at same rate as the IV push. Flush volume is determined by type of infusion therapy being given. For non-viscous solutions use: Peripheral IV = 5 mL Midline or Central Line = 10 mL/lumen For viscous solutions (i.e. blood components, parenteral nutrition, contrast media, or after obtaining blood sample) use: Peripheral IV = 10 mL Midline or Central Line = 20 mL/lumen 1015 (Given - Provider: Audra Astudillo RN)2026 (Not Given - Provider: Raymond Doshi, ANSELMO - Reason: Other) 0843 (Given - Provider: Audra Astudillo RN)2017 (Given - Provider: Abi Ha RN) 0914 (Not Given - Provider: Clement Granger, ANSELMO - Reason: IV Fluid Infusing)2100 (Due) vancomycin (VANCOCIN) 1250 mg in sodium chloride 0.9% 250 mL IVPB 1,250 mg (15.1 mg/kg), IntraVENous, at 166.7 mL/hr, Administer over 90 Minutes, EVERY 12 HOURS, First dose on Sat06/18/22 at 1230 0453 (New Bag - Provider: Jennifer Robins RN)0644 (Stopped - Provider: Jennifer Robins RN)1756 (New Bag - Provider: Audra Astudillo RN)1934 (Stopped - Provider: Raymond Doshi, ANSELMO) 0503 (New Bag - Provider: Raymond Doshi, ANSELMO)0642 (Stopped - Provider: Raymond Doshi, ANSELMO)1730 (New Bag - Provider: Audra Astudillo RN)1900 (Stopped - Provider: Abi Ha RN)194 (Stopped - Provider: Abi Ha RN) 0536 (New Bag - Provider: Abi Ha RN)0911 (Stopped - Provider: Clement Granger RN)1700 (Due - Provider: Tonio Pendleton [facility]) vancomycin (VANCOCIN) intermittent dosing (placeholder) PRN Medication Order 06/19/2022 06/20/2022 06/21/2022 0.9 % sodium chloride infusion IntraVENous, at 5-250 mL/hr, PRN, if patient receiving piggyback infusions and maintenance fluids are not ordered OR KVO fluids to protect IV site / prevent frequent line interruptions/ long duration, Starting on Sat06/15/22 at 1714, For piggyback infusion, administer at same rate as piggyback for a total of 25 mL. Enter 25 mL into dose field and piggyback rate into rate field of order. If piggyback is infusing at a rate less than 100 mL/hr, enter 25 mL into dose field and 100 mL/hr into rate field of order. For KVO fluids, enter rate of 20 mL/hr or less into rate field of order. 0.9 % sodium chloride infusion IntraVENous, at 5-250 mL/hr, PRN, if patient receiving piggyback infusions and maintenance fluids are not ordered OR KVO fluids to protect IV site / prevent frequent line interruptions/ long duration, Starting on 06/16/22 at 0239, For piggyback infusion, administer at same rate as piggyback for a total of 25 mL. Enter 25 mL into dose field and piggyback rate into rate field of order. If piggyback is infusing at a rate less than 100 mL/hr, enter 25 mL into dose field and 100 mL/hr into rate field of order. For KVO fluids, enter rate of 20 mL/hr or less into rate field of order. acetaminophen (TYLENOL) suppository 650 mg(Linked Group 1) 650 mg, Rectal, EVERY 6 HOURS PRN, Starting on 06/16/22 at 0239, Until Discontinued, Pain Mild (1-3), Fever, For temp greater than 100.4 F (38 C), Administer if oral route cannot be used. 0034 (See Alternativ e - Provider: Abi Ha RN) acetaminophen (TYLENOL) tablet 650 mg(Linked Group 1) 650 mg, Oral, EVERY 6 HOURS PRN, Starting on 06/16/22 at 0239, Until Discontinued, Pain Mild (1-3), Fever, For temp greater than 100.4 F (38 C), Maximum dose of acetaminophen is 4000 mg from all sources in 24 hours. 0034 (Given - Provid er: Abi Ha RN) albuterol (PROVENTIL) nebulizer solution 2.5 mg 2.5 mg, Nebulization, As Directed - RT (PRN), Starting on Sat06/19/22 at 0039, Until Discontinued, Wheezing, Initiate RT Bronchodilator Protocol: Yes - Inpatient Protocol sodium chloride flush 0.9 % injection 5-40 mL 5-40 mL, IntraVENous, PRN, Starting on Sat06/15/22 at 1714, Until Discontinued, Line Care, After every IV line use, For Line Patency: Peripheral IV = 5 mL; Midline or Central Line = 10 mL/lumen. If following IV push medication, administer flush at same rate as the IV push. Flush volume is determined by type of infusion therapy being given. For non-viscous solutions use: Peripheral IV = 5 mL Midline or Central Line = 10 mL/lumen For viscous solutions (i.e. blood components, parenteral nutrition, contrast media, or after obtaining blood sample) use: Peripheral IV = 10 mL Midline or Central Line = 20 mL/lumen sodium chloride flush 0.9 % injection 5-40 mL 5-40 mL, IntraVENous, PRN, Starting on 06/16/22 at 0239, Until Discontinued, Line Care, After every IV line use, For Line Patency: Peripheral IV = 5 mL; Midline or Central Line = 10 mL/lumen. If following IV push medication, administer flush at same rate as the IV push. Flush volume is determined by type of infusion therapy being given. For non-viscous solutions use: Peripheral IV = 5 mL Midline or Central Line = 10 mL/lumen For viscous solutions (i.e. blood components, parenteral nutrition, contrast media, or after obtaining blood sample) use: Peripheral IV = 10 mL Midline or Central Line = 20 mL/lumen Linked Groups Order Group 1: acetaminophen (TYLENOL) tablet 650 mgJump to med 650 mg, Oral, EVERY 6 HOURS PRN, Starting on 06/16/22 at 0239, Until Discontinued, Pain Mild (1-3), Fever, For temp greater than 100.4 F (38 C)
Maximum dose of acetaminophen is 4000 mg from all sources in 24 hours.
Or acetaminophen (TYLENOL) suppository 650 mgJump to med 650 mg, Rectal, EVERY 6 HOURS PRN, Starting on 06/16/22 at 0239, Until Discontinued, Pain Mild (1-3), Fever, For temp greater than 100.4 F (38 C)
Administer if oral route cannot be used.
Scheduled Medication Order 06/30/2022 07/01/2022 07/02/2022 dalbavancin (DALVANCE) 1,000 mg in dextrose 5 % 500 mL IVPB 1,000 mg, IntraVENous, at 1,000 mL/hr, Administer over 30 Minutes, ONCE, On Sat06/29/22 at 1400, For 1 dose, Dalbavancin (DALVANCE) not compatible with NS or any saline-based solution. Final solution concentration range from 1 mg/mL to 5 mg/mL. Infuse over 30 minutes. If a common IV line is being used to administer other drugs in addition to dalbavancin, the line should be flushed before and after each infusion with D5W. dalbavancin (DALVANCE) 1,000 mg in dextrose 5 % 500 mL IVPB (COMPLETED) 1,000 mg, IntraVENous, at 1,000 mL/hr, Administer over 30 Minutes, ONCE, On Sat07/02/22 at 1415, For 1 dose, Dalbavancin (DALVANCE) not compatible with NS or any saline-based solution. Final solution concentration range from 1 mg/mL to 5 mg/mL. Infuse over 30 minutes. If a common IV line is being used to administer other drugs in addition to dalbavancin, the line should be flushed before and after each infusion with D5W. 1505 (New Bag - Prov ider: ELDA MADDOX)1535 (Due: Stopped - Provider: ELDA MADDOX) Scheduled Medication Order 07/07/2022 07/08/2022 07/09/2022 dalbavancin (DALVANCE) 1,000 mg in dextrose 5 % 500 mL IVPB (COMPLETED) 1,000 mg, IntraVENous, at 1,000 mL/hr, Administer over 30 Minutes, ONCE, On Sat07/09/22 at 1400, For 1 dose, Dalbavancin (DALVANCE) not compatible with NS or any saline-based solution. Final solution concentration range from 1 mg/mL to 5 mg/mL. Infuse over 30 minutes. If a common IV line is being used to administer other drugs in addition to dalbavancin, the line should be flushed before and after each infusion with D5W. 1404 (New Bag - Prov ider: Sunita Pringle RN)1434 (Stopped - Provider: Sunita Pringle RN) Ordered Prescriptions (unrec ognized section and content) Prescription Sig Dispensed Refills Start Date End Da te dalbavancin (DALVANCE) 500 MG SOLR injection Infuse 1,500 mg intravenously every 7 days for 2 doses 2 each 0 12/20/2021 12/28/2021 Prescription Sig Dispensed Refills Start Date End Da te triamterene-hydroCHLOROth iazide (MAXZIDE-25) 37.5-25 MG per tablet Take 1 tablet by mouth daily 30 tablet 0 01/10/2022 02/09/2022 Prescription Sig Dispensed Refills Start Date End Da te fluconazole (DIFLUCAN) 100 MG tablet Take 4 tablets by mouth daily Till 03/10/22 Get lFT 2 x per week You ll need repeat echo before the cessation of this medication 156 tablet 0 01/30/2022 03/10/2022 guaiFENesin (MUCINEX) 600 MG extended release tablet Take 1 tablet by mouth 2 times daily for 14 days 28 tablet 0 01/30/2022 02/13/2022 fluticasone (FLONASE) 50 MCG/ACT nasal spray 1 spray by Each Nostril route daily 16 g 3 01/30/2022 levoFLOXacin (LEVAQUIN) 500 MG tablet Take 1 tablet by mouth daily 39 tablet 0 01/30/2022 03/10/2022 fluconazole (DIFLUCAN) 100 MG tablet Take 4 tablets by mouth daily Till 03/10/22 Get lFT 2 x per week You ll need repeat echo before the cessation of this medication 156 tablet 0 01/30/2022 01/30/2022 traMADol (ULTRAM) 50 MG tabletIndications:Post -operative pain Take 1 tablet by mouth every 6 hours as needed for Pain for up to 5 days. Intended supply: 5 days. Take lowest dose possible to manage pain 20 tablet 0 01/27/2022 01/30/2022 Prescription Sig Dispensed Refills Start Date End Da te fluconazole (DIFLUCAN) 100 MG tablet Take 4 tablets by mouth in the morning. Pls make sure you get the weekly blood for Liver function tests while on this medication. 168 tablet 0 06/19/2022 07/31/2022 dalbavancin (DALVANCE) 500 MG SOLR injection Infuse 1,000 mg intravenously every 7 days No iv to be left in arm pls - 2 each 0 06/19/2022 Prescription Sig Dispensed Refills Start Date End Da te ibuprofen (ADVIL;MOTRIN) 800 MG tablet Take 1 tablet by mouth every 8 hours as needed for Pain or Fever 15 tablet 0 01/30/2024 benzonatate (TESSALON) 100 MG capsule Take 1-2 capsules by mouth 3 times daily as needed for Cough 30 capsule 0 01/30/2024 FOR RECORDS PERTAINING TO PATIENTS WHO ARE OR HAVE BEEN ENROLLED IN A CHEMICAL DEPENDENCY/SUBSTANCEABUSE PROGRAM, SOME INFORMATION MAY BE OMITTED. This clinical summary was aggregated from multiple sources. Caution should be exercised in using it in the provision of clinical care. This summary normalizes information from multiple sources, and as a consequence, information in this document may materially change the coding, format and clinical context of patient data. In addition, data may be omitted in some cases. CLINICAL DECISIONS SHOULD BE BASED ON THE PRIMARY CLINICAL RECORDS. [employer] provides no warranty or guarantee of the accuracy or completeness of information in this document.
--- NOTE | 2025-05-06 21:07 | ED_ITS ---
Documented by User: DONOVAN Poon 05/06/25 21:51 HPI - URI/Sore Throat General Chief Complaint: Upper Respiratory Infection Stated Complaint: CONGESTION, TROUBLE BREATHING Time Seen by Provider: 05/06/25 21:00 Source: patient Limitations: no limitations History of Present Illness HPI Narrative: Patient is a 45-year-old male who presents to the emergency department for evaluation of multiple complaints. He states he has had a 1 week history of cough and congestion in his chest. He feels short of breath and as though his chest is tight. He reports feeling palpitations as well for the last several days. He has had some lower extremity swelling. No sputum production or hemoptysis. No fevers or vomiting. No sick contacts. He vapes daily. Related Data Home Medications ?Medication ?Instructions ?Recorded ?Confirmed No Known Home Medications 05/06/2504/12 Allergies Allergy/AdvReac Type Severity Reaction Status Date / Time Penicillins Allergy Unknown Unknown Verified 05/06/25 21:02 vancomycin Allergy Redness of Verified 05/06/25 21:02 Skin Review of Systems ROS Constitutional Denies: fever or chills Ears, nose, mouth, and throat Reports: nasal congestion; Denies: throat pain Cardiovascular Reports: palpitations and swelling of feet/ankles Respiratory Reports: shortness of breath, cough and chest congestion; Denies: wheezing or coughing up blood Gastrointestinal Denies: abdominal pain, nausea, vomiting or diarrhea Integumentary/Breast Denies: rash Neurological Denies: numbness in extremities or weakness in extremities Hematologic/Lymphatic Denies: easy bruising or easy bleeding PFSH PFSH Social History Smoking status: Current every day smoker Little interest or pleasure in doing things: not at all Feeling down, depressed, or hopeless: not at all Exam Narrative Exam Narrative: Gen.: Awake, alert, in no distress Head: Normocephalic, atraumatic ENT: Moist mucous membranes Respiratory: No respiratory distress, lungs clear bilaterally, speaks in full sentences Cardio: Regular rate and rhythm Extremities: Moves extremities equally, no significant pedal edema Psych: Normal mood and affect Neuro: No focal neuro deficit Skin: Warm, dry, intact Constitutional Vital Signs, click to edit/add: Last Vital Signs Temp 98.1 F 05/06/25 20:58 Pulse 99 H 05/06/25 20:58 Resp 20 05/06/25 20:58 BP 139/91 05/06/25 20:58 Pulse Ox 99 05/06/25 20:58 O2 Del Method Room Air 05/06/25 20:58 Course Vital Signs Vital signs: Vital Signs Temperature 98.1 F 05/06/25 20:58 Pulse Rate 99 H 05/06/25 20:58 Respiratory Rate 20 05/06/25 20:58 Blood Pressure 139/91 05/06/25 20:58 Pulse Oximetry 99 05/06/25 20:58 Oxygen Delivery Method Room Air 05/06/25 20:58 Temperature 98.1 F 05/06/25 20:58 Pulse Rate 99 H 05/06/25 20:58 Respiratory Rate 20 05/06/25 20:58 Blood Pressure 139/91 05/06/25 20:58 Pulse Oximetry 99 05/06/25 20:58 Oxygen Delivery Method Room Air 05/06/25 20:58 MDM - URI/Sore Throat MDM Narrative Medical decision making narrative: Patient declined a breathing treatment. Solu-medrol given. Labs, chest xray ordered. Pending results, case turned over to attending physician SHARED APC VISIT, PHYSICIAN ATTESTATION: [id number] I performed a substantive part of the MDM during the patient?s E/M visit. I personally evaluated and examined the patient. I personally made or approved the documented management plan and acknowledge its risk of complications. Medical Records Attestation: I reviewed the patient's medical records. Lab Data Attestation: I reviewed the patient's lab results. Labs: Lab Results 05/06/25 05/06/25 Range/Units 21:15 21:28 WBC 5.8 (4.0-11.0) 10^3/uL RBC 4.62 L (4.70-6.10) 10^6/uL Hgb 14.3 (14.0-18.0) g/dL Hct 40.8 L (42.0-54.0) % MCV 88.3 (80.0-94.0) fL MCH 31.0 (25.9-34.0) pg MCHC 35.0 (29.9-35.2) g/dL RDW 13.0 (11.0-15.0) % Plt Count 143 L (150-450) 10^3/uL MPV 9.3 L (9.5-13.5) fL Neut % (Auto) 65.5 (43.0-75.0) % Lymph % (Auto) 19.4 L (20.5-60.0) % Faulkner % (Auto) 5.7 (1.7-12.0) % Eos % (Auto) 8.5 H (0.9-7.0) % Baso % (Auto) 0.7 (0.2-2.0) % Neut # (Auto) 3.8 (1.4-6.5) 10^3/uL Lymph # (Auto) 1.1 L (1.2-3.8) 10^3/uL Faulkner # (Auto) 0.3 (0.3-0.8) 10^3/uL Eos # (Auto) 0.5 (0.0-0.7) 10^3/uL Baso # (Auto) 0.0 (0.0-0.1) 10^3/uL Abs Immat Gran (auto) 0.01 (0.00-0.03) 10^3/uL Imm/Tot Granulo (auto) 0.2 (0.0-0.5) % PT 11.2 (9.0-11.6) sec INR 1.06 D-Dimer 0.24 (<=0.59) mg/L FEU VBG pH 7.365 (7.330-7.430) VBG pCO2 51.0 (40.0-52.0) mmHg Sodium 141 (136-145) mmol/L Potassium 3.9 (3.5-5.1) mmol/L Chloride 104 (98-107) mmol/L Carbon Dioxide 28.8 (21.0-32.0) mmol/L Anion Gap 12.1 BUN 14.0 (7.0-18.0) mg/dL Creatinine 0.99 (0.70-1.30) mg/dL Est GFR ( Amer) >60 (>=60 mL/min/1.73m^2) Est GFR (Non-Af Amer) >60 (>=60 mL/min/1.73m^2) BUN/Creatinine Ratio 14.1 Glucose 166 H (74-106) mg/dL Lactate 2.1 H* (0.4-2.0) mmol/L Calcium 9.2 (8.5-10.1) mg/dL Magnesium 2.0 (1.8-2.4) mg/dL Total Bilirubin 0.9 (0.2-1.0) mg/dL AST 25 (15-37) U/L ALT 47 (16-63) U/L Alkaline Phosphatase 78 (46-116) U/L Troponin I High Sens 8.2 (4.0-76.1) pg/mL NT-Pro-B Natriuret Pep 150.0 (<=450.0) pg/mL Total Protein 7.5 (6.4-8.2) g/dL Albumin 3.6 (3.4-5.0) g/dL Globulin 3.9 g/dL Albumin/Globulin Ratio 0.9 Influenza Type A Ag Negative Influenza Type B Ag Negative SARS-CoV-2 Ag (CV2AG) Negative (NEGATIVE) ECG Data Attestation: I personally reviewed and interpreted this ECG as follows: (Normal sinus rhythm at a rate of 92, no acute ST elevation or ectopy. EKG reviewed by attending physician) Discharge Plan Discharge Chief Complaint: Upper Respiratory Infection Clinical Impression: Cough, Upper respiratory infection Patient Disposition: Home, Self-Care Time of Disposition Decision: 22:22 Condition: Good Prescriptions / Home Meds: No Action No Known Home Medications Print Language: Setswana Instructions: Upper Respiratory Infection (ED), Acute Bronchitis (ED) Referrals: Physician,Non-Staff, [Primary Care Provider] - 1 week Documented by User: Jaida Weaver MD 05/06/25 22:25 HPI - URI/Sore Throat General Chief Complaint: Upper Respiratory Infection Stated Complaint: CONGESTION, TROUBLE BREATHING Time Seen by Provider: 05/06/25 21:00 Related Data Home Medications ?Medication ?Instructions ?Recorded ?Confirmed No Known Home Medications 05/06/2504/12 Allergies Allergy/AdvReac Type Severity Reaction Status Date / Time Penicillins Allergy Unknown Unknown Verified 05/06/25 21:02 vancomycin Allergy Redness of Verified 05/06/25 21:02 Skin PFSH [facility] Social History Smoking status: Current every day smoker Little interest or pleasure in doing things: not at all Feeling down, depressed, or hopeless: not at all Exam Constitutional Vital Signs, click to edit/add: Last Vital Signs Temp 98.1 F 05/06/25 20:58 Pulse 99 H 05/06/25 20:58 Resp 20 05/06/25 20:58 BP 139/91 05/06/25 20:58 Pulse Ox 99 05/06/25 20:58 O2 Del Method Room Air 05/06/25 20:58 Course Vital Signs Vital signs: Vital Signs Temperature 98.1 F 05/06/25 20:58 Pulse Rate 99 H 05/06/25 20:58 Respiratory Rate 20 05/06/25 20:58 Blood Pressure 139/91 05/06/25 20:58 Pulse Oximetry 99 05/06/25 20:58 Oxygen Delivery Method Room Air 05/06/25 20:58 Temperature 98.1 F 05/06/25 20:58 Pulse Rate 99 H 05/06/25 20:58 Respiratory Rate 20 05/06/25 20:58 Blood Pressure 139/91 05/06/25 20:58 Pulse Oximetry 99 05/06/25 20:58 Oxygen Delivery Method Room Air 05/06/25 20:58 MDM - URI/Sore Throat MDM Narrative Medical decision making narrative: Patient declined a breathing treatment. Solu-medrol given. Labs, chest xray ordered. Pending results, case turned over to attending physician This patient was seen and evaluated conjunction with the physician veterinary assistant technician. This 45-year-old male who vapes presents for evaluation of cough and chest congestion for approximately 1 week. He is feeling better after treatment emergency department. He has a normal EKG that was reviewed by myself. COVID- 19 and influenza testing is negative. Chest x-ray was read by radiology and is negative for acute findings. He has a normal cardiac workup including CBC with differential, comprehensive metabolic profile, troponin and D-dimer. He will be discharged home with a Medrol Dosepak, Zithromax Z-DARON, Bromfed-DM and he request a refill of his albuterol MDI. SHARED APC VISIT, PHYSICIAN ATTESTATION: [id number] I performed a substantive part of the MDM during the patient?s E/M visit. I personally evaluated and examined the patient. I personally made or approved the documented management plan and acknowledge its risk of complications. Lab Data Labs: Lab Results 05/06/25 05/06/25 Range/Units 21:15 21:28 WBC 5.8 (4.0-11.0) 10^3/uL RBC 4.62 L (4.70-6.10) 10^6/uL Hgb 14.3 (14.0-18.0) g/dL Hct 40.8 L (42.0-54.0) % MCV 88.3 (80.0-94.0) fL MCH 31.0 (25.9-34.0) pg MCHC 35.0 (29.9-35.2) g/dL RDW 13.0 (11.0-15.0) % Plt Count 143 L (150-450) 10^3/uL MPV 9.3 L (9.5-13.5) fL Neut % (Auto) 65.5 (43.0-75.0) % Lymph % (Auto) 19.4 L (20.5-60.0) % Faulkner % (Auto) 5.7 (1.7-12.0) % Eos % (Auto) 8.5 H (0.9-7.0) % Baso % (Auto) 0.7 (0.2-2.0) % Neut # (Auto) 3.8 (1.4-6.5) 10^3/uL Lymph # (Auto) 1.1 L (1.2-3.8) 10^3/uL Faulkner # (Auto) 0.3 (0.3-0.8) 10^3/uL Eos # (Auto) 0.5 (0.0-0.7) 10^3/uL Baso # (Auto) 0.0 (0.0-0.1) 10^3/uL Abs Immat Gran (auto) 0.01 (0.00-0.03) 10^3/uL Imm/Tot Granulo (auto) 0.2 (0.0-0.5) % PT 11.2 (9.0-11.6) sec INR 1.06 D-Dimer 0.24 (<=0.59) mg/L FEU VBG pH 7.365 (7.330-7.430) VBG pCO2 51.0 (40.0-52.0) mmHg Sodium 141 (136-145) mmol/L Potassium 3.9 (3.5-5.1) mmol/L Chloride 104 (98-107) mmol/L Carbon Dioxide 28.8 (21.0-32.0) mmol/L Anion Gap 12.1 BUN 14.0 (7.0-18.0) mg/dL Creatinine 0.99 (0.70-1.30) mg/dL Est GFR ( Amer) >60 (>=60 mL/min/1.73m^2) Est GFR (Non-Af Amer) >60 (>=60 mL/min/1.73m^2) BUN/Creatinine Ratio 14.1 Glucose 166 H (74-106) mg/dL Lactate 2.1 H* (0.4-2.0) mmol/L Calcium 9.2 (8.5-10.1) mg/dL Magnesium 2.0 (1.8-2.4) mg/dL Total Bilirubin 0.9 (0.2-1.0) mg/dL AST 25 (15-37) U/L ALT 47 (16-63) U/L Alkaline Phosphatase 78 (46-116) U/L Troponin I High Sens 8.2 (4.0-76.1) pg/mL NT-Pro-B Natriuret Pep 150.0 (<=450.0) pg/mL Total Protein 7.5 (6.4-8.2) g/dL Albumin 3.6 (3.4-5.0) g/dL Globulin 3.9 g/dL Albumin/Globulin Ratio 0.9 Influenza Type A Ag Negative Influenza Type B Ag Negative SARS-CoV-2 Ag (CV2AG) Negative (NEGATIVE) Discharge Plan Discharge Chief Complaint: Upper Respiratory Infection Clinical Impression: Cough, Upper respiratory infection Patient Disposition: Home, Self-Care Time of Disposition Decision: 22:22 Condition: Good Prescriptions / Home Meds: No Action No Known Home Medications Print Language: Setswana Instructions: Upper Respiratory Infection (ED), Acute Bronchitis (ED) Referrals: Physician,Non-Staff, MD [Primary Care Provider] - 1 week
[2025-05-06 21:26] LABS: pH VBG 7.365 (7.330-7.430)
[2025-05-06 21:34] LABS: Basophils Percent Auto 0.7 % (0.2-2.0); Eosinophils Absolute Auto 0.5 10^3/uL (0.0-0.7); Eosinophils Percent Auto 8.5 % (0.9-7.0); Hematocrit 40.8 % (42.0-54.0); Hemoglobin 14.3 g/dL (14.0-18.0); Immature Granulocytes Abs Auto 0.01 10^3/uL (0.00-0.03); Immature Granulocytes Pct Auto 0.2 % (0.0-0.5); Lymphocytes Absolute Auto 1.1 10^3/uL (1.2-3.8); Lymphocytes Percent Auto 19.4 % (20.5-60.0); Mean Corpuscular Volume 88.3 fL (80.0-94.0); Mean Platelet Volume 9.3 fL (9.5-13.5); Monocytes Absolute Auto 0.3 10^3/uL (0.3-0.8); Monocytes Percent Auto 5.7 % (1.7-12.0); Neutrophils Absolute Auto 3.8 10^3/uL (1.4-6.5); Neutrophils Percent Auto 65.5 % (43.0-75.0); Platelet Count 143 10^3/uL (150-450); Red Blood Count 4.62 10^6/uL (4.70-6.10); White Blood Count 5.8 10^3/uL (4.0-11.0)
[2025-05-06 21:41] LABS: D Dimer 0.24 mg/L FEU (<=0.59); INR 1.06; Prothrombin Time 11.2 sec (9.0-11.6)
--- NOTE | 2025-05-06 21:43 | XR_ITS ---
The [address] [address] Patient Name: RUTH ANSARI MRN: [id number] date: 1980 Sex: M Assigned Patient Location: ED.MAIN Current Patient Location: ED.MAIN Accession/Order Number: [id number] Exam Date: 05/06/2025 22:11 Report Date: 05/06/2025 22:15 At the request of: MIGUELANGEL MAN Procedure: XR chest 1V PA CHEST: CLINICAL HISTORY: Cough COMPARISON: 01/05/2023 FINDINGS: Unremarkable cardiomediastinal. Lungs are clear. No effusion or pneumothorax. IMPRESSION: Negative acute pleural-parenchymal disease Impression dictated by: Jorge Sultana M.D. 05/06/2025 10:15 PM Dictation Location: [place] [address] Electronically authenticated by: [id number] Y Date: 05/06/2025 22:15
[2025-05-06 21:46] LABS: Influenza Virus A Antigen Negative; Influenza Virus B Antigen Negative; Internal Control Within Normal Limits; SARS-CoV-2 Ag NEGATIVE (NEGATIVE)
[2025-05-06] MEDS: 0.9 % SODIUM CHLORIDE 1,000 ML 999 ML IV (21:47)
[2025-05-06] MEDS: METHYLPREDNISOLONE SOD SUCC PF 125 MG/2 ML VIAL IVP (21:50)
[2025-05-06 21:51] LABS: Alanine Aminotransferase 47 U/L (16-63); Albumin Globulin Ratio 0.9; Albumin Level 3.6 g/dL (3.4-5.0); Alkaline Phosphatase 78 U/L (46-116); Anion Gap 12.1; Aspartate Amino Transferase 25 U/L (15-37); BUN Creatinine Ratio 14.1; Bilirubin Total 0.9 mg/dL (0.2-1.0); Calcium 9.2 mg/dL (8.5-10.1); Carbon Dioxide 28.8 mmol/L (21.0-32.0); Chloride 104 mmol/L (98-107); Estimated GFR (African America >60 (>=60 mL/min/1.73m^2); Estimated GFR (Non-African Ame >60 (>=60 mL/min/1.73m^2); Globulin 3.9 g/dL; Glucose 166 mg/dL (74-106); Potassium 3.9 mmol/L (3.5-5.1); Sodium 141 mmol/L (136-145); Total Protein 7.5 g/dL (6.4-8.2); Troponin I High Sensitivity 8.2 pg/mL (4.0-76.1)
[2025-05-06 21:58] LABS: Lactate/Lactic Acid 2.1 mmol/L (0.4-2.0)
--- NOTE | 2025-05-06 22:02 | PC.NURSE ---
lab called with critical Lac. of 2.1
--- NOTE | 2025-05-06 22:54 | PC.NURSE ---
i gave this patient verbal and written discharge orders along with 4 Rx and this patient vices yes to understanding these. at time of discharge this patient vices no concerns, needs and this patient shows no signs of distress
== END 2025-05-06 22:54 | disposition home or self-care (01) ==
PROVIDERS: Physician Assistant; Emergency Provider Emergency Medicine
DX: J06.9 Acute upper respiratory infection, unspecified (principal); F17.290 Nicotine dependence, other tobacco product, uncomplicated; R05.9 Cough, unspecified
CPT/HCPCS: 36415; 71045; 80053; 82800; 83605; 83735; 83880; 84484; 85025; 85378; 85610; 87804; 87811; 93005; 96374; 99285; J2919

== ENCOUNTER 2025-05-14 15:18 | Inpatient (IN) | payer OTHER, SELFPAY ==
[2025-05-14] VITALS (38 sets, daily range): BP systolic 80–168; BP diastolic 65–104; PULSE 69–148; TEMP 36.8–36.9; O2SAT 97–100; BMI 23.1; BMI 22.0
--- OUTSIDE RECORDS SUMMARY | 2025-05-14 15:28 | XMS_ITS | CCD ---
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 (12 sources) Vancomycin; Translations: [VANCOMYCIN] Drug Allergy 2 Other (See Comments) [employer] Phone (unformatted): [phone] (1 source) Penicillins Propensity to adverse reactions to drug 6 Anaphylaxis [employer] Phone: Medications Current Medications Medication Drug Class(es) [...] 100 mL IVPB (mini-bag) polyethylene glycol 3350 37797 mg powder for oral solution (2 sources) [...] CHARO+probe Ql (Resp) Detected Abnormal Not Detected [facility] FLUBV RNA CHARO+probe Ql (Resp) Not detected Not Detected [facility] Interpretation and review of laboratory results Abnormal [facility] SARS-CoV-2 (COVID-19) RNA CHARO+probe Ql (Resp) Not detected Not Detected [facility] Comment on above: Testing was performed using [...] and epidemiological information. Fact sheet for Patients: https://www.fda.gov/media/785929/download Fact sheet for Healthcare Providers: https://www.fda.gov/media/397584/download Results reported to the appropriate Health Department Source .NASOPHARYNGEAL SWAB [facility] Specimen Description .NASOPHARYNGEAL SWAB [facility] Rapid Strep Screenon 024 Specimen source Nom (Unsp spec) .THROAT SWAB [facility] Strep A, Molecular Negative NEGATIVE [facility] SARS-CoV-2 + Flu A/Bon 01-29 Influenza A, RT-PCR Detected Abnormal [facility] Comment on above: Performed By: #### C VFLU #### [facility] [address] [place], [place] [address] Head Sawyer Automatic: Edward Paz MD Influenza B, RT-PCR Not detected Normal [facility] Comment on above: Performed By: #### C VFLU #### [facility] [address] [place], [place] [id number] Head Sawyer Automatic: Edward Paz MD SARS-CoV-2 (COVID-19) RNA CHARO+probe Ql (Unsp spec) Not detected Normal [facility] Comment on above: Result Comment: Testing [...] and epidemiological information. Fact sheet for Patients: https://www.fda.gov/media/979724/download Fact sheet for Healthcare Providers: https://www.fda.gov/media/089366/download Results reported to the appropriate Health Department Performed By: #### C VFLU #### [facility] [address] [place], [place] [id number] Head Sawyer Automatic: Edward Paz MD Source .NASOPHARYNGEAL SWAB Normal [facility] Comment on above: Performed By: #### C VFLU #### [facility] [address] [place], [place] [id number] Head Sawyer Automatic: Edward Paz MD Strep Group A, Rapidon 01-29 Strep A, Molecular Negative Normal NEG [facility] Comment on above: Performed By: #### R SAB #### [facility] [address] [place], [place] [id number] Head Sawyer Automatic: Edward Paz MD Source .THROAT SWAB Normal [facility] Comment on above: Performed By: #### R SAB #### [facility] [address] [place], [place] [id number] Head Sawyer Automatic: Edward Paz MD XR CHEST (2 VW)on [...] Rip Diaz MD 11/12/23 Final result Normal [facility] 36on 06-03-2023 36 Notified patient of all test results. At this time, will start treatment for chronic hep B with once daily tenofivir. In 1 month, we will recheck labs and at that time start Hep C therapy. Patient is agreeable. Normal [facility] 36 ----- Message from Candelaria Kc MA sent at 04/25/2023 3:42 PM EDT ----- ----- Message ----- From: Lab, Background User Sent: 04/16/2023 5:26 PM EDT To: Jose Rafael An MD [facility] Telephoneon 06-03-2023 Telephone [phone] Tip Ansari 1980 M Date Provider Department Center 06/03/2023 [id number], SARA E[facility] No family history on file Normal [facility] EDPROVon 05-09-2023 EDPROV HPI Chief Complaint Patient presents with Dental Pain Nausea Pt c/o front upper tooth problem. Pt states this has happened in the past and has not been to dentist. Pt reports dental pain and was nauseated & vomited this morning. Toothache off and on for a while now. Now recurring.no swelling no fever. Olvin Coma Scale Score: 15 Patient History History [...] Making Attestion Edward Palmer DO 07/24/[address] [facility] EDPROV HPI Chief Complaint Patient presents [...] cold nausea vomiting diarrhea no extremity complaints Olvin Coma Scale Score: 15 Patient History History [...] Making Attestion Edward Palmer DO 05/09/[address] [facility] 29on 04-16-2023 29 Addended by: ESTELA BARNEY on: 04/22/2023 01:08 PM Modules accepted: Orders [facility] AFP TUMOR MARKERon 3 ALPHA FETOPROTEIN TUMOR MARKER 7 ng/mL Normal 0-9 [facility] Comment on above: Result Comment: INTE RPRETIVE [...] reference intervals for this test in the [email or web address] Laboratory Test Directory ([employer]). Performed By: [employer] [address] [place] [address] Labor/Excavator: Hank Evans MD, PhD Performed By: #### L [id number] #### [facility] ([facility]) [address] [place] [address] [id number] 2022 ALPHA-1 ANTITRYPSIN 147 mg/dL Normal 90-200 [facility] Comment on above: Result Comment: To c onvert to umol/L, multiply mg/dL by 0.185 Performed By: [employer] [address] [place] [address] Labor/Excavator: Hank Evans MD, PhD Performed By: #### L [id number] #### [facility] ([facility] [address] [place] [address] ANAon 04-16-2023 JESSICA TITER <1:40 Normal <=1:40 [facility] Comment on above: Result Comment: Test performed using ROLF IFA JESSICA Hep-2 Test, a pre-standardized assay designed for the qualitative and semi-quantitative detection of antinuclear antibodies. Performed By: #### L [id number] #### [facility] ([facility]) [address] [place] [address] ANTI-SMOOTH MUSCLE ANTIBODY TITERon 04-16-2023 SMOOTH MUSCLE AB, IGG TITER 1:40 High <1:20 [facility] Comment on above: Result Comment: INTE RPRETIVE INFORMATION: Smooth Muscle Ab, IgG Titer Less than 1:20 ........ Negative - No antibody detected. 1:20 - 1:80 .......... Weak Positive - Suggest repeat in two to three weeks with fresh specimen. 1:160 or greater ...... Positive - Suggestive of autoimmune hepatitis or chronic active hepatitis. Performed By: [employer] [address] [place] [address] Labor/Excavator: Hank Evans MD, PhD Performed By: #### L [id number] #### [facility] ([facility]) [address] [place] [address] CBC WITH AUTO DIFFERENTIALon 04-16-2023 Basophils (Bld) [#/Vol] 0.04 10*3/uL Normal 0.00-0.20 [facility] Comment on above: Performed By: #### L [id number] #### [facility] ([facility]) [address] [place] [address] Basophils/100 WBC (Bld) 0.8 % Normal 0.0-1.0 [facility] Comment on above: Performed By: #### L [id number] #### [facility] ([facility]) [address] [place] [address] Eosinophils (Bld) [#/Vol] 0.21 10*3/uL Normal 0.00-0.50 [facility] Comment on above: Performed By: #### L [id number] #### [facility] ([facility]) [address] [place] [address] Eosinophils/100 WBC (Bld) 3.9 % Normal 0.0-6.0 [facility] Comment on above: Performed By: #### L [id number] #### [facility] ([facility]) [address] [place] [address] Erythrocyte distribution width (RBC) [Ratio] 14.3 % Normal 11.5-15.0 [facility] Comment on above: Performed By: #### L [id number] #### [facility] ([facility] [address] [place] [address] ERYTHROCYTE MEAN CORPUSCULAR HEMOGLOBIN CONCENTRATION (G/DL) BY AUTOMATED 33.5 g/dL Normal 32.0-35.0 [facility] Comment on above: Performed By: #### L [id number] #### [facility] ([facility]) [address] [place] [address] Hematocrit (Bld) [Volume fraction] 41.2 % Normal 39.0-55.0 [facility] Comment on above: Performed By: #### L [id number] #### [facility] ([facility] [address] [place] [address] Hemoglobin (Bld) [Mass/Vol] 13.8 g/dL Normal 13.0-17.0 [facility] Comment on above: Performed By: #### L [id number] #### [facility] ([facility]) [address] [place] [address] Immature granulocytes (Bld) [#/Vol] 0.00 10*3/uL Normal 0.00-0.20 [facility] Comment on above: Performed By: #### L [id number] #### [facility] ([facility]) [address] [place] [address] Immature granulocytes/100 WBC (Bld) 0.0 % Normal 0.0-1.0 [facility] Comment on above: Performed By: #### L [id number] #### [facility] ([facility]) [address] [place] [address] Lymphocytes (Bld) [#/Vol] 1.34 10*3/uL Normal 1.20-4.00 [facility] Comment on above: Performed By: #### L [id number] #### [facility] ([facility]) [address] [place] [address] Lymphocytes/100 WBC (Bld) 25.1 % Normal 20.0-45.0 [facility] Comment on above: Performed By: #### L [id number] #### [facility] ([facility]) [address] [place] [address] MCH (RBC) [Entitic mass] 29.2 pg Normal 27.0-33.0 [facility] Comment on above: Performed By: #### L [id number] #### [facility] ([facility]) [address] [place] [address] MCV (RBC) [Entitic vol] 87.1 fL Normal 82.0-98.0 [facility] Comment on above: Performed By: #### L [id number] #### [facility] ([facility]) [address] [place] [address] Monocytes (Bld) [#/Vol] 0.38 10*3/uL Normal 0.10-1.00 [facility] Comment on above: Performed By: #### L [id number] #### [facility] ([facility]) [address] [place] [address] Monocytes/100 WBC (Bld) 7.1 % Normal 5.0-12.0 [facility] Comment on above: Performed By: #### L [id number] #### [facility] ([facility]) [address] [place] [address] Neutrophils (Bld) [#/Vol] 3.36 10*3/uL Normal 1.60-7.60 [facility] Comment on above: Performed By: #### L [id number] #### [facility] ([facility]) [address] [place] [address] Neutrophils/100 WBC (Bld) 63.1 % Normal 40.0-72.0 [facility] Comment on above: Performed By: #### L [id number] #### [facility] ([facility] [address] [place] [address] NRBC (PER 100 WBCS) BY AUTOMATED COUNT 0.0 % Normal 0 [facility] Comment on above: Performed By: #### L [id number] #### [facility] ([facility]) [address] [place] [address] PLATELETS (10*3/UL) IN BLOOD AUTOMATED COUNT 159 10*3/uL Normal 150-400 [facility] Comment on above: Performed By: #### L [id number] #### [facility] ([facility]) [address] [place] [address] RBC (Bld) [#/Vol] 4.73 10*6/uL Normal 4.20-5.70 [facility] Comment on above: Performed By: #### L [id number] #### [facility] ([facility]) [address] [place] [address] WBC (Bld) [#/Vol] 5.33 10*3/uL Normal 4.00-10.60 [facility] Comment on above: Performed By: #### L [id number] #### [facility] ([facility]) [address] [place] [address] COMPREHENSIVE METABOLIC PANE Tarun 04-16-2023 Albumin [Mass/Vol] 4.3 g/dL Normal 3.5-5.[address] [facility] Comment on above: Performed By: #### L [id number] #### [facility] ([facility]) [address] [place] [address] ALP [Catalytic activity/Vol] 98 U/L Normal 34-104 [facility] Comment on above: Performed By: #### L [id number] #### [facility] ([facility]) [address] [place] [address] ALT [Catalytic activity/Vol] 71 U/L High 7-52 [facility] Comment on above: Performed By: #### L [id number] #### [facility] ([facility]) [address] [place] [address] Anion gap [Moles/Vol] 9 mmol/L Normal 7-20 [facility] Comment on above: Performed By: #### L [id number] #### [facility] ([facility]) [address] [place] [address] AST [Catalytic activity/Vol] 43 U/L High 13-39 [facility] Comment on above: Performed By: #### L [id number] #### [facility] ([facility]) [address] [place] [address] Bilirubin [Mass/Vol] 0.8 mg/dL Normal 0.3-1.0 [facility] Comment on above: Performed By: #### L [id number] #### [facility] ([facility]) [address] [place] [address] Calcium [Mass/Vol] 9.7 mg/dL Normal 8.6-10.[address] [facility] Comment on above: Performed By: #### L [id number] #### [facility] ([facility]) [address] [place] [address] Chloride [Moles/Vol] 107 mmol/L Normal 98-107 [facility] Comment on above: Performed By: #### L [id number] #### [facility] ([facility]) [address] [place] [address] CO2 [Moles/Vol] 27 mmol/L Normal 21-31 [facility] Comment on above: Performed By: #### L [id number] #### [facility] ([facility]) [address] [place] [address] Creatinine [Mass/Vol] 1.05 mg/dL Normal 0.70-1.30 [facility] Comment on above: Performed By: #### L [id number] #### [facility] ([facility]) [address] [place] [address] GLOMERULAR FILTRATION RATE ML/MIN/1.73 SQ M.PREDICTED 91.5 mL/min/1.73m*2 Normal >60.0 [facility] Comment on above: Result Comment: The [facility]???s estimated glomerular filtration rate (eGFR) will no [...] By: #### L [id number] #### [facility] ([facility]) [address] [place] [address] Glucose [Mass/Vol] 91 mg/dL Normal 70-[address] [facility] Comment on above: Performed By: #### L [id number] #### [facility] ([facility] [address] [place] [address] Potassium [Moles/Vol] 3.9 mmol/L Normal 3.5-5.1 [facility] Comment on above: Performed By: #### L [id number] #### [facility] ([facility]) [address] [place] [address] Protein [Mass/Vol] 7.2 g/dL Normal 6.0-8.[address] [facility] Comment on above: Performed By: #### L [id number] #### [facility] ([facility]) [address] [place] [address] Sodium [Moles/Vol] 139 mmol/L Normal 136-[address] [facility] Comment on above: Performed By: #### L [id number] #### [facility] ([facility]) [address] [place] [address] Urea nitrogen [Mass/Vol] 15 mg/dL Normal 7-20 [facility] Comment on above: Performed By: #### L [id number] #### [facility] ([facility]) [address] [place] [address] Performed By: #### L [id number] #### [facility] ([facility]) [address] [place] [address] UREA NITROGEN/CREATININE (MASS RATIO) IN SER/PLAS 14.3 Normal [facility] Comment on above: Performed By: #### L [id number] #### [facility] ([facility]) [address] [place] [address] FERRITINon 04-16-2023 FERRITIN (NG/ML) IN SER/PLAS 51.0 ng/mL Normal 24.0-336.0 [facility] Comment on above: Performed By: #### L [id number] #### [facility] ([facility]) [address] [place] [address] HCV QUANTITATIVE TMAon 04-16 HCV QUANTITATIVE LOG 6.59 Log10 IU/mL Normal [facility] Comment on above: Order Comment: The A [employer]ima HCV Quant Dx assay is a real-time vascular ultrasound technologist-mediated amplification (TMA) test which has a dynamic [...] By: #### L [id number] #### [facility] ([facility]) [address] [place] [address] HCV TMA INTERP Detected Abnormal Not Detected [facility] Comment on above: Order Comment: The A [employer]ima HCV Quant Dx assay is a real-time vascular ultrasound technologist-mediated amplification (TMA) test which has a dynamic [...] L [id number] #### [facility] ([facility]) [address] [place] [address] HCV TMA QUANTITATIVE [id number] IU/mL Normal [facility] Comment on above: Order Comment: The A [employer]ima HCV Quant Dx assay is a real-time vascular ultrasound technologist-mediated amplification (TMA) test which has a dynamic [...] products. Performed By: #### L [id number] #### [facility] [employer] ([facility]) [address] [place] [address] HEPATITIS B E ANTIBODYon HEPATITIS B VIRUS E AB PRESENCE IN SERUM BY IMMUNOASSAY Negative Normal Negative [facility] Comment on above: Result Comment: Per[place] [address] [email or web address], Hank Evans MD, PHD, Lab. Director Performed By: #### L [id number] #### [facility] ([facility]) [address] [place] [address] HEPATITIS B E ANTIGENon HEPATITIS BE ANTIGEN Positive Abnormal Negative [facility] Comment on above: Result Comment: The HBeAg is reactive, which is consistent with hepatitis B infection and a HIGH infectious potential. Serum positive for rheumatoid factor may cause falsely positive HBeAg results. All specimens submitted for HBeAg testing should be positive for HBsAg. Performed by [employer] [address] www.[email or web address], Hank Evans MD, PHD, Lab. Director Performed By: #### L [id number] #### [employer] [facility] ([facility]) [address] [place] [address] HEPATITIS B QUANTITATIVE PCR on 04-16-2023 HBV DNA, QUANT PCR (IU/ML) 538,246,646 IU/mL Normal [facility] Comment on above: Performed By: #### L [id number] #### [facility] ([facility]) [address] [place] [address] HBV DNA, QUANT PCR (LOG IU/ML) 8.73 log IU/mL Normal [facility] Comment on above: Result Comment: Perf ormed by [employer], [address] [place], [place] [id number] [email or web address], Hank Evans MD, PHD, Lab. Director Performed By: #### L [id number] #### [facility] ([facility]) [address] [place] [address] HBV DNA, QUANT PCR INTERP Detected Abnormal Not Detected [facility] Comment on above: Result Comment: INTE RPRETIVE [...] (HCT/P). Performed By: #### L [id number] #### [facility] ([facility]) [address] [place] [address] HEPATITIS B SURFACE ANTIGEN CONFIRMon 04-16-2023 HEPATITIS B SURFACE ANTIGEN INTERPRETATION Confirmed Abnormal Not Confirmed [facility] Comment on above: Performed By: #### L [id number] #### [facility] ([facility]) [address] [place] [address] HEPATITIS PANEL, ACUTEon HEPATITIS A VIRUS IGM AB PRESENCE IN SER/PLAS Non-Reactive Normal Nonreactive [facility] Comment on above: Performed By: #### L [id number] #### [facility] ([facility]) [address] [place] [address] HEPATITIS B VIRUS CORE AB (PRESENCE) IN SER/PLAS BY IMM Reactive Abnormal Nonreactive [facility] Comment on above: Result Comment: RAN IN DUP, ALL THREE REACTIVE Performed By: #### L [id number] #### [facility] ([facility]) [address] [place] [address] HEPATITIS B VIRUS SURFACE AG PRESENCE IN SERUM Reactive Abnormal Nonreactive [facility] Comment on above: Result Comment: RAN IN DUP, ALL THREE REACTIVE Performed By: #### L [id number] #### [facility] ([facility]) [address] [place] [address] HEPATITIS C VIRUS AB PRESENCE IN SERUM Reactive Abnormal Nonreactive [facility] Comment on above: Performed By: #### L [id number] #### [facility] ([facility]) [address] [place] [address] HIV COMBO 4Gon 04-16-2023 HIV COMBO 4G Negative Normal Negative [facility] Comment on above: Performed By: #### L [id number] #### [facility] ([facility]) [address] [place] [address] IRON AND TIBCon 04-16-2023 IRON (UG/DL) IN SER/PLAS 88 ug/dL Normal 50-212 [facility] Comment on above: Performed By: #### L [id number] #### [facility] ([facility]) [address] [place] [address] IRON BINDING CAPACITY (UG/DL) IN SER/PLAS 368 ug/dL Normal 250-450 [facility] Comment on above: Performed By: #### L [id number] #### [facility] ([facility]) [address] [place] [address] IRON BINDING CAPACITY.UNSATURATED (UG/DL) IN SER/PLAS 280.0 ug/dL Normal 155.0-355.0 [facility] Comment on above: Performed By: #### L [id number] #### [facility] ([facility]) [address] [place] [address] IRON SATURATION (%) IN SER/PLAS 24 % Normal 20-50 [facility] Comment on above: Performed By: #### L [id number] #### [facility] ([facility]) [address] [place] [address] LIVER FIBROSIS CHRONIC VIRAL HEPATITISon 04-16-2023 [id number], FIBROMETER 149 mg/dL Normal 131-293 [facility] Comment on above: Performed By: #### L [id number] #### [facility] ([facility]) [address] [place] [place] [address] ALT [Catalytic activity/Vol] 96 U/L High 5-50 [facility] Comment on above: Performed By: #### L [id number] #### [facility] ([facility]) [address] [place] [address] Amylase [Catalytic activity/Vol] 44 U/L Normal 7-51 [facility] Comment on above: Performed By: #### L [id number] #### [facility] ([facility]) [address] [facility] [address] AST [Catalytic activity/Vol] 55 U/L High 9-50 [facility] Comment on above: Performed By: #### L [id number] #### [facility] ([facility]) [address] [place] [address] CIRRHOMETER PATIENT SCORE 0.05 Normal [facility] Comment on above: Performed By: #### L [id number] #### [facility] ([facility]) [address] [place] [address] EER FIBROMETER REPORT See Note Normal [facility] Comment on above: Result Comment: Auth orized individuals can access the [facility] Enhanced Report using the following link: [email or web address] Performed By: #### L [id number] #### [facility] ([facility]) [address] [facility] [place] [address] FIBROMETER INTERPRETATION See Report Normal [facility] Comment on above: Result Comment: [17] [13] INTERPRETIVE INFORMATION: Fibrometer Interpretation Calculations for the final report are based on accurate data for age, gender, and platelet count. If any of this information needs to be corrected, please contact [facility] Client Services to request a [...] developed and its performance characteristics determined by [employer]. It has not been cleared or approved by the US Food and Drug Administration. This test was performed in a CLIA certified laboratory and is intended for clinical purposes. Performed By: [employer] [address] [place] [id number] Labor/Excavator: Hank Evans MD, PhD Performed By: #### L [id number] #### [facility] ([facility]) [address] [place] [address] FIBROMETER PATIENT SCORE 0.46 Normal [facility] Comment on above: Performed By: #### L [id number] #### [facility] ([facility]) [address] [place] [address] FIBROMETER PLATELET COUNT 165 k/uL Normal [facility] Comment on above: Performed By: #### L [id number] #### [facility] ([facility]) [address] [place] [address] FIBROMETER PROTHROMBIN INDEX 86 % Low 90-120 [facility] Comment on above: Performed By: #### L [id number] #### [facility] ([facility]) [address] [place] [address] FIBROSIS METAVIR CLASSIFICATION F2[F1-F2] Normal [facility] Comment on above: Result Comment: INTE RPRETIVE [...] possible Performed By: #### L [id number] #### [facility] ([facility]) [address] [place] [address] INFLAMETER METAVIR CLASSIFICATION A1/A2 Normal [facility] Comment on above: Result Comment: INTE RPRETIVE INFORMATION: InflaMeter Metavir Classification InflaMeter (activity score) comments A0/A1 Equal probability between A0 and A1 A1/A2 Equal probability between A1 and A2 A2/A3 Equal probability between A2 and A3 Performed By: #### L [id number] #### [facility] ([facility]) [address] [place] [address] INFLAMETER PATIENT SCORE 0.51 Normal [facility] Comment on above: Performed By: #### L [id number] #### [facility] ([facility]) [address] [place] [address] Labon 04-16-2023 Lab [id number] Tip Ansari 1980 M Date Provider Department Center 04/16/[id number]-[facility] OPD LAB RESOURCE [facility] OPD [facility] C No family history on file Normal [facility] MITOCHONDRIAL ANTIBODIES, M2 on 04-16-2023 MITOCHONDRIAL M2 ANTIBODY 2.7 Units Normal 0.0-24.9 [facility] Comment on above: Result Comment: REFE RENCE [...] does not rule out PBC. Performed By: [employer] [address] [place] [place] [address] Labor/Excavator: Hank Evans MD, PhD Performed By: #### L [id number] #### [facility] ([facility]) [address] [place] [address] Office Visiton 04-16-2023 Follow-up visit [id number] Tip Ansari 1980 M Date Provider Department [place] 04/16/2023 JOSE RAFAEL EUBANKS [facility] No family history on file Level of Service:22351 [place] OFFICE/OUTPATIENT ESTABLISHED MOD MDM 30-39 MIN Reason for Visit and Comments: New Patient [632] Hepatitis C [102] Hepatitis B [94] Normal [facility] PROTIME-INRon 04-16-2023 INR IN PPP BY COAGULATION ASSAY 1.07 Normal 0.90-1.10 [facility] Comment on above: Result Comment: ACCC P [...] 1995;[id number]. Performed By: #### L [id number] #### [facility] ([facility]) [address] [place] [address] PROTHROMBIN TIME (PT) IN PPP BY COAGULATION ASSAY 14.0 Seconds Normal 12.3-14.8 [facility] Comment on above: Performed By: #### L [id number] #### [facility] ([facility]) [address] [place] [address] TISSUE TRANSGLUTAMINASE, IGA on 04-16-2023 TISSUE TRANSGLUTAMINASE, IGA <2 Normal 0-3 [facility] Comment on above: Result Comment: INTE RPRETIVE [...] to 40 U/mL, additional testing for endomysial (MAMIE) IgA concentrations may improve the positive predictive value for disease. 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 Toothache PATIENT REFERRED TO: [facility] [phone] Schedule an appointment a (more content not included)... Normal [facility] EDNURSon 12-25-2022 EDNURS Patient reports having dental pain for the past couple of months. Patient reports that he is to have all of his teeth extracted but due to insurance issues he has not been able to have that done. 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 Normal [facility] Basic Metabolic Panel w/ Ref rebecca to MGon 06-21-2022 Anion gap [Moles/Vol] 10 mmol/L 9 - 17 mmol/L [employer] Calcium [Mass/Vol] 9.2 mg/dL 8.6 - 10. 4 mg/dL [facility] Chloride [Moles/Vol] 104 mmol/L 98 - 10 7 mmol/L [facility] CO2 [Moles/Vol] 24 mmol/L 20 - 31 mmol/L [facility] Creatinine [Mass/Vol] 0.68 mg/dL Low 0.7 - 1.2 mg/dL [employer] GFR >60 60 - PI NF mL/min [facility] GFR Non- >60 60 - PINF mL/min [facility] GFR/1.73 sq M.predicted MDRD (S/P/Bld) [Vol rate/Area] [facility] Comment on above: Average GFR for 40-4 9 years old: 99 mL/min/1.73sq m Chronic Kidney Disease: <60 mL/min/1.73sq m Kidney failure: <15 mL/min/1.73sq m eGFR calculated using average adult body mass. Additional eGFR calculator available at: http://www.Syncano.Minka/multiple_crcl_2011.htm Glucose [Mass/Vol] 85 mg/dL 70 - 99 mg/dL [facility] [employer] Interpretation and review of laboratory results Abnormal [facility] Potassium [Moles/Vol] 3.9 mmol/L 3.7 - 5.3 mmol/L [facility] Sodium [Moles/Vol] 138 mmol/L 135 - 144 mmol/L [facility] Urea nitrogen (BldV) [Mass/Vol] 13 mg/dL 6 - 20 mg/dL [facility] CBCon 06-21-2022 Hematocrit (Bld) [Volume fraction] 35.7 % Low 40.7 - 50.3 % [facility] Hemoglobin (Bld) [Mass/Vol] 12.3 g/dL Low 13 - 17 g/dL [facility] Interpretation and review of laboratory results Abnormal [facility] MCH (RBC) [Entitic mass] 28.7 pg 25. 2 - 33.5 pg [facility] MCHC (RBC) [Mass/Vol] 34.5 g/dL 28.4 - 34.8 g/dL [facility] MCV (RBC) [Entitic vol] 83.4 fL 82.6 - 102.9 fL [facility] NRBC Automated 0.0 0.0 per 100 WBC [facility] Platelet distribution width (Bld) [Ratio] 17.9 % High 11.8 - 14.4 % [facility] Platelet mean volume (Bld) [Entitic vol] 9.1 fL 8.1 - 13.5 fL [facility] Platelets (Bld) [#/Vol] 174 10*3/uL [facility] RBC (Bld) [#/Vol] 4.28 10*6/uL 4.21 - 5.7 7 m/uL [facility] WBC (Bld) [#/Vol] 8.6 10*3/uL [facility] Hepatic Function Panelon Albumin [Mass/Vol] 3.2 g/dL Low 3.5 - 5.2 g/dL [facility] Albumin/Globulin [Mass ratio] 0.7 {ratio} Low 1 - 2.5 [facility] ALP (Bld) [Catalytic activity/Vol] 83 U/L 40 - 129 U/L [facility] ALT [Catalytic activity/Vol] 28 U/L 5 - 41 U/L [facility] AST [Catalytic activity/Vol] 20 U/L NINF - 40 U/L [facility] Bilirubin [Mass/Vol] 0.45 mg/dL 0.3 - 1 .2 mg/dL [facility] Bilirubin, Indirect 0.35 mg/dL 0 - 1 mg/dL [facility] Bilirubin.indirect [Mass/Vol] 0.10 mg/dL NINF - 0.31 mg/dL [facility] Free PSA/Total PSA [Mass fraction] 7.5 g/dL 6.4 - 8.3 g/dL [facility] Interpretation and review of laboratory results Abnormal [facility] Basic Metabolic Panel w/ Ref rebecca to MGon 06-20-2022 Anion gap [Moles/Vol] 8 mmol/L Low 9 - 17 mmol/L [facility] Calcium [Mass/Vol] 9.1 mg/dL 8.6 - 10. 4 mg/dL [facility] Chloride [Moles/Vol] 106 mmol/L 98 - 10 7 mmol/L [facility] CO2 [Moles/Vol] 27 mmol/L 20 - 31 mmol/L [facility] Creatinine [Mass/Vol] 0.75 mg/dL 0.7 - 1.2 mg/dL [facility] GFR >60 60 - PI NF mL/min [facility] GFR Non- >60 60 - PINF mL/min [facility] GFR/1.73 sq M.predicted MDRD (S/P/Bld) [Vol rate/Area] [facility] Comment on above: Average GFR for 40-4 9 years old: 99 mL/min/1.73sq m Chronic Kidney Disease: <60 mL/min/1.73sq m Kidney failure: <15 mL/min/1.73sq m eGFR calculated using average adult body mass. Additional eGFR calculator available at: http://www.Syncano.Minka/multiple_crcl_2011.htm Glucose [Mass/Vol] 99 mg/dL 70 - 99 mg/dL [facility] Interpretation and review of laboratory results Abnormal [facility] Potassium [Moles/Vol] 4.1 mmol/L 3.7 - 5.3 mmol/L [facility] Sodium [Moles/Vol] 141 mmol/L 135 - 144 mmol/L [facility] Urea nitrogen (BldV) [Mass/Vol] 13 mg/dL 6 - 20 mg/dL [facility] CBCon 06-20-2022 Hematocrit (Bld) [Volume fraction] 35.2 % Low 40.7 - 50.3 % [facility] Hemoglobin (Bld) [Mass/Vol] 11.8 g/dL Low 13 - 17 g/dL [facility] Interpretation and review of laboratory results Abnormal [facility] MCH (RBC) [Entitic mass] 28.0 pg 25. 2 - 33.5 pg [facility] MCHC (RBC) [Mass/Vol] 33.5 g/dL 28.4 - 34.8 g/dL [facility] MCV (RBC) [Entitic vol] 83.4 fL 82.6 - 102.9 fL [facility] NRBC Automated 0.0 0.0 per 100 WBC [facility] Platelet distribution width (Bld) [Ratio] 18.0 % High 11.8 - 14.4 % [facility] Platelet mean volume (Bld) [Entitic vol] 8.9 fL 8.1 - 13.5 fL [facility] Platelets (Bld) [#/Vol] 187 10*3/uL [facility] RBC (Bld) [#/Vol] 4.22 10*6/uL 4.21 - 5.7 7 m/uL [facility] WBC (Bld) [#/Vol] 8.9 10*3/uL [facility] Culture, Blood 1 2 Bacteria identified Cx Nom (Unsp spec) NO GROWTH 5 DAYS [facility] Special Requests RT FOREARM 3ML [facility] Specimen Description .BLOOD [facility] Culture, Blood 2 2 Bacteria identified Cx Nom (Unsp spec) NO GROWTH 5 DAYS [facility] Special Requests L AC 10ML [facility] Specimen Description .BLOOD [facility] XR ABDOMEN (KUB) (SINGLE AP VIEW)on 06-20-2022 Moderate stool burde n throughout the colon. Nonobstructive bowel gas pattern. [facility] EXAMINATION: ONE SUPINE XRAY VIEW(S) OF THE ABDOMEN 06/20/2022 8:37 am COMPARISON: None. HISTORY: ORDERING SYSTEM PROVIDED HISTORY: abd paindistension TECHNOLOGIST PROVIDED HISTORY: abd paindistension FINDINGS: Moderate stool burden throughout the colon. Nonobstructive bowel gas pattern. No renal calculi identified. No acute osseous abnormality appreciated. [facility] Mckayla Baltazar MD - [...] throughout the colon. Nonobstructive bowel gas pattern. [facility] Work Phone: Radiology Study observation (narrative) [facility] [employer] Work Phone: XR ABDOMEN (KUB) (SINGLE AP VIEW)Ordered By: Mckayla Baltazar on 06-20-2022 [facility] Work Phone: No Panel Informationon 06-19 [facility] [employer] Renal Function Panelon 06-19 Albumin [Mass/Vol] 3.3 g/dL Low 3.5 - 5.2 g/dL [facility] [employer] Anion gap [Moles/Vol] 11 mmol/L 9 - 17 mmol/L [facility] [employer] Calcium [Mass/Vol] 9.0 mg/dL 8.6 - 10. 4 mg/dL [facility] [employer] Chloride [Moles/Vol] 105 mmol/L 98 - 10 7 mmol/L [facility] [employer] CO2 [Moles/Vol] 25 mmol/L 20 - 31 mmol/L [facility] [employer] Creatinine [Mass/Vol] 0.7 mg/dL 0.7 - 1.2 mg/dL [facility] GFR >60 60 - PI NF mL/min [facility] GFR Non- >60 60 - PINF mL/min [facility] GFR/1.73 sq M.predicted MDRD (S/P/Bld) [Vol rate/Area] [facility] Comment on above: Average GFR for 40-4 9 years old: 99 mL/min/1.73sq m Chronic Kidney Disease: <60 mL/min/1.73sq m Kidney failure: <15 mL/min/1.73sq m eGFR calculated using average adult body mass. Additional eGFR calculator available at: http://www.Zigabid/multiple_crcl_2012.htm Glucose [Mass/Vol] 142 mg/dL High 70 - 99 mg/dL [facility] Interpretation and review of laboratory results Abnormal [facility] Phosphate [Mass/Vol] 3.3 mg/dL 2.5 - 4 .5 mg/dL [facility] Potassium [Moles/Vol] 3.6 mmol/L Low 3.7 - 5.3 mmol/L [facility] Sodium [Moles/Vol] 141 mmol/L 135 - 144 mmol/L [facility] Urea nitrogen (BldV) [Mass/Vol] 11 mg/dL 6 - 20 mg/dL [facility] Vancomycin Level, Randomon 0 06-19-2022 Vancomycin Rm 18.4 ug/mL [facility] Comment on above: Higher trough serum vancomycin concentrations of 15-20 ug/mL are recommended for complicated infections such as bacteremia, endocarditis, osteomyelitis, meningitis, and hospital acquired pneumonia. Cult,Bloodon 06-18-2022 Cult,Blood Specimen Description .BLOOD Culture NO GROWTH 5 DAYS Report Status FINAL 06/18/2022 Normal [facility] Comment on above: Performed By: #### B C #### [facility] [address] [place] [address] Head Sawyer Automatic: Joelle Parker MD Basic Metabolic Panel w/ Ref rebecca to MGon 06-17-2022 Anion gap [Moles/Vol] 10 mmol/L 9 - 17 mmol/L [facility] Calcium [Mass/Vol] 8.8 mg/dL 8.6 - 10. 4 mg/dL [facility] Chloride [Moles/Vol] 106 mmol/L 98 - 10 7 mmol/L [facility] CO2 [Moles/Vol] 24 mmol/L 20 - 31 mmol/L [facility] Creatinine [Mass/Vol] 0.73 mg/dL 0.7 - 1.2 mg/dL [facility] GFR >60 60 - PI NF mL/min [facility] GFR Non- >60 60 - PINF mL/min [facility] GFR/1.73 sq M.predicted MDRD (S/P/Bld) [Vol rate/Area] [facility] Comment on above: Average GFR for 40-4 9 years old: 99 mL/min/1.73sq m Chronic Kidney Disease: <60 mL/min/1.73sq m Kidney failure: <15 mL/min/1.73sq m eGFR calculated using average adult body mass. Additional eGFR calculator available at: http://www.Zigabid/multiple_crcl_2012.htm Glucose [Mass/Vol] 147 mg/dL High 70 - 99 mg/dL [facility] Interpretation and review of laboratory results Abnormal [facility] Potassium [Moles/Vol] 3.7 mmol/L 3.7 - 5.3 mmol/L [facility] Sodium [Moles/Vol] 140 mmol/L 135 - 144 mmol/L [facility] Urea nitrogen (BldV) [Mass/Vol] 9 mg/dL 6 - 20 mg/dL [facility] Respiratory Cultureon 2021 Bacteria identified Cx Nom (Unsp spec) NORMAL RESPIRATORY CHRISTOPHER MODERATE GROWTH [facility] Direct Exam >25 NEUTROPHILS/LPF [facility] Direct Exam < 10 EPITHELIAL CELLS/LPF [facility] Direct Exam MIXED BACTERIAL MORPHOTYPES SEEN ON GRAM STAIN. Abnormal [facility] Interpretation and review of laboratory results Abnormal [facility] Specimen Description .ASPIRATED SPUTUM [facility] ANTISTREPTOLYSIN O SCREENon 06-16-2022 ASO 130.8 [facility] Brain Natriuretic Peptideon 06-16-2022 Natriuretic peptide B (Bld) [Mass/Vol] 287 pg/mL NINF - 300 pg/mL [facility] Comment on above: An age-independent cutoff point of 300 pg/ml has a 98% negative predictive value excluding acute heart failure. C-Reactive Proteinon 022 CRP [Mass/Vol] 16.4 mg/L High 0 - 5 mg/L [facility] Interpretation and review of laboratory results Abnormal [facility] Comprehensive Metabolic Pane l w/ Reflex to MGon 06-16-2022 Albumin [Mass/Vol] 3.1 g/dL Low 3.5 - 5.2 g/dL [facility] Albumin/Globulin [Mass ratio] 0.8 {ratio} Low 1 - 2.5 [facility] ALP (Bld) [Catalytic activity/Vol] 76 U/L 40 - 129 U/L [facility] ALT [Catalytic activity/Vol] 21 U/L 5 - 41 U/L [facility] Anion gap [Moles/Vol] 10 mmol/L 9 - 17 mmol/L [facility] AST [Catalytic activity/Vol] 15 U/L NINF - 40 U/L [facility] Bilirubin [Mass/Vol] 0.35 mg/dL 0.3 - 1 .2 mg/dL [facility] Calcium [Mass/Vol] 8.6 mg/dL 8.6 - 10. 4 mg/dL [facility] Chloride [Moles/Vol] 107 mmol/L 98 - 10 7 mmol/L [facility] CO2 [Moles/Vol] 22 mmol/L 20 - 31 mmol/L [facility] Creatinine [Mass/Vol] 0.72 mg/dL 0.7 - 1.2 mg/dL [facility] Free PSA/Total PSA [Mass fraction] 7.0 g/dL 6.4 - 8.3 g/dL [facility] GFR >60 60 - PI NF mL/min [facility] GFR Non- >60 60 - PINF mL/min [facility] GFR/1.73 sq M.predicted MDRD (S/P/Bld) [Vol rate/Area] [facility] Comment on above: Average GFR for 40-4 9 years old: 99 mL/min/1.73sq m Chronic Kidney Disease: <60 mL/min/1.73sq m Kidney failure: <15 mL/min/1.73sq m eGFR calculated using average adult body mass. Additional eGFR calculator available at: http://www.Zigabid/multiple_crcl_2012.htm Glucose [Mass/Vol] 96 mg/dL 70 - 99 mg/dL [facility] Interpretation and review of laboratory results Abnormal [facility] Potassium [Moles/Vol] 3.6 mmol/L Low 3.7 - 5.3 mmol/L [facility] Sodium [Moles/Vol] 139 mmol/L 135 - 144 mmol/L [facility] Urea nitrogen (BldV) [Mass/Vol] 9 mg/dL 6 - 20 mg/dL [facility] DRUG SCREEN MULTI URINEon Amphetamine Screen, Ur Negative NEGATIVE [facility] [employer] [facility] Comment on above: (Positive cutoff 1000 ng/mL) Barbiturate Screen, Ur Negative NEGATIVE [facility] Comment on above: (Positive cutoff 200 ng/mL) Benzodiazepine Screen, Urine Negative NEGATIVE [facility] [employer] [facility] Comment on above: (Positive cutoff 200 ng/mL) Cannabinoid Scrn, Ur Negative NEGATIVE [facility] Comment on above: (Positive cutoff 50 ng/mL) Cocaine Metabolite, Urine Negative NEGATIVE [facility] [employer] [facility] Comment on above: (Positive cutoff 300 ng/mL) Fentanyl, Ur Negative NEGATIVE [facility] [employer] [facility] Comment on above: (Positive cutoff 5 ng/ml) Methadone Screen, Urine Negative NEGATIVE B ON [employer] Comment on above: (Positive cutoff 300 ng/mL) Opiates, Urine Negative NEGATIVE [facility] [employer] [facility] Comment on above: (Positive cutoff 300 ng/mL) Oxycodone Screen, Ur Negative NEGATIVE [facility] [employer] Comment on above: (Positive cutoff 100 ng/mL) Phencyclidine, Urine Negative NEGATIVE [employer] Comment on above: (Positive cutoff 25 ng/mL) Test Information Assay provides medical screening only. The absence of expected drug(s) and/or metabolite(s) may indicate diluted or adulterated urine, limitations of testing or timing of collection. [employer] Comment on above: Testing for legal pu rposes should be confirmed by another method. To request confirmation of test result, please call the lab within 7 days of sample submission. [employer] EKG 12 LeadOrdered By: Alec Cheung on 06-16-2022 Atrial Rate 113 BPM [employer] Work Phone: P [place] 65 degrees [employer] Phone: P-R Interval 132 ms [employer] Work Phone: Q-T Interval 332 ms [employer] Phone: QRS Duration 80 ms [employer] Work Phone: QTc Calculation (Bazett) 455 ms [employer] Work Phone: R [place] 73 degrees [employer] Work Phone: T [place] 57 degrees [employer] Work Phone: Ventricular Rate 113 BPM [employer] Work Phone: [employer] Work Phone: EKG 12 Leadon 06-16-2022 Sinus tachycardia Otherwise normal ECG When compared with ECG of 30-JAN-2022 08:47, No significant change was found [facility] Alec Shook MD - 06/16/2022 Sinus tachycardia Otherwise normal ECG When compared with ECG of 30-JAN-2022 08:47, No significant change was found [employer] Work Phone: Echocardiogram 3Don 06-16-20 Transthoracic Echocardiography Report (TTE) Patient Name COTY Date of Study 06/16/2022 TIP Plata Date of 1980 Gender Male Age 42 year(s) Race Room Number 430 Height: 73 inch, 185.42 cm Corporate ID [id number] Weight: 172 pounds, 78 kg # Patient Acct [id number] BSA: 2.02 m^2 BMI: 22.69 # kg/m^2 MR # [id number] Customer Support Agent T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 Procedure Date Date: 06/16/2022 Start: 11:00 AM Study Location: [facility] Indications:Endocardi tis. History / Tech. Comments: Lower [...] Height: 73 inch, 185.42 cm Corporate ID [id number] Weight: 172 pounds, 78 kg # Patient Acct [id number] BSA: 2.02 m^2 BMI: 22.69 # kg/m^2 MR # [id number] Customer Support Agent [employer] Interpreting Physician Alec Cheung Fellow Referring Nurse Practitioner Interpreting Referring Physician Beverly Flroes Type of Study TTE procedure:2D Echocardiogram, Doppler, Color Doppler. Procedure Date Date: 06/16/2022 Start: 11:00 AM Study Location: [facility] Indications:Endocardi tis. History / Tech. Comments: Lower [...] velocity:0.09 m/s Lateral Wall E' velocity:0.10 m/s [facility] Work Phone: [facility] [employer] Work Phone: HIV Screenon 06-16-2022 HIV Ag/Ab Non-Reactive NONREACTIVE [facility] Comment on above: No laboratory eviden ce of HIV infection. If acute HIV infection is suspected, consider testing for HIV-1 RNA. [facility] Bluespec Lactate, Sepsison 06-16-2022 Lactic Acid, Sepsis, Whole Blood 1.6 mmol/L 0.5 - 1.9 mmol/L [facility] MRI CERVICAL SPINE W WO [...] spinal canal stenosis or neural foraminal narrowing. [facility] RIS Richard Shane MD - 06/16/2022 [...] at C6-C7, on the left hand side. Lovli Phone: Lovli Phone: MRI LUMBAR SPINE W WO TWILAA Uziel 06-16-2022 No MRI evidence of discitis-osteomyeliti s or epidural abscess. 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 [facility] EXAMINATION: MRI OF THE [...] zone. A lateralized disc bulge results in kqvr-[id number] narrowing of the left neural foramen. L4-L5: There is no significant disc protrusion, spinal canal stenosis or neural foraminal narrowing. L5-S1: There is no significant disc protrusion, spinal canal stenosis or neural foraminal narrowing. [facility] Richard Haas MD - [...] zone. A lateralized disc bulge results in eopz-ky-[id number] narrowing of the left neural foramen. L4-L5: There is no significant disc protrusion, spinal canal stenosis or neural foraminal narrowing. L5-S1: There is no significant disc protrusion, spinal canal stenosis or neural foraminal narrowing. IMPRESSION: No MRI evidence of discitis-osteomyeliti s or epidural abscess. 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 [employer] Work Phone: MRI LUMBAR SPINE W FELIPE MATTSONA STOrdered By: Richard Haas on 06-16-2022 [employer] Work Phone: MRSA DNA Probe, Nasalon -0 MRSA, DNA, Nasal Negative NEGATIVE [facility] [employer] Comment on above: NEGATIVE: MRSA DNA n ot detected by nucleic acid amplification. Results should be used as an adjunct to nosocomial control efforts to identify patients needing enhanced precautions. The test is not intended to identify patients with staphylococcal infections. Results should not be used to guide or monitor treatment for MRSA infections. Specimen Description .[facility]AL SWAB [facility] [employer] No Panel Informationon 06-16 Radiology Study observation (narrative) [employer] Work Phone: [facility] Procalcitoninon 06-16-2022 Interpretation and review of laboratory results Abnormal [facility] Procalcitonin 0.21 ng/mL High NINF - 0.09 ng/mL [facility] Comment on above: Suspected Sepsis: <0.50 [...] entered into the Change in Procalcitonin Calculator ([email or web address]) to determine the patient's Mortality Risk Prognosis In healthy neonates, plasma Procalcitonin (PCT) concentrations increase gradually after , reaching peak values at about 24 hours of age then decrease to normal values below 0.5 ng/mL by 48-72 hours of age. [facility] Interpretation and review of laboratory results Abnormal [facility] Procalcitonin 0.2 ng/mL High NINF - 0.09 ng/mL [facility] Comment on above: Suspected Sepsis: <0.50 [...] entered into the Change in Procalcitonin Calculator (www.ucwsli-min-utsodactgz.com) to determine the patient's Mortality Risk Prognosis In healthy neonates, plasma Procalcitonin (PCT) concentrations increase gradually after , reaching peak values at about 24 hours of age then decrease to normal values below 0.5 ng/mL by 48-72 hours of age. [facility] Protime-INRon 06-16-2022 INR Coag (Bld) [Relative time] 1.0 {INR} [facility] Comment on above: Therapeutic Range: Moderate Anticoagulant Intensity: INR = 2.0-3.0 High Anticoagulant Intensity: INR = 2.5-3.5 PT Coag (PPP) [Time] 10.5 s [facility] STREP SCREEN GROUP A THROATo n 06-16-2022 S. pyogenes Ag Ql (Throat) Negative NEGATIVE [facility] Comment on above: Rapid Strep A negati ve. A negative Rapid Group A Strep Screen result does not rule out the possibility of Group A Streptococci in the specimen. A Group A Strep DNA test is available upon request. Source .THROAT SWAB [facility] Sputum gram stainon 06-16-20 22 Direct Exam DUPLICATE ORDER [facility] Specimen Description .ASPIRATED SPUTUM [facility] Strep Pneumoniae Antigenon 0 06-16-2022 Source .URINE [facility] Strep pneumo Ag Negative [facility] Comment on above: Strep pneumoniae ant igen not detected [facility] Urinalysis with Reflex to Cu ltureon 06-16-2022 Bilirubin Urine Negative NEGATIVE [facility] Color, UA Yellow Yellow [facility] Glucose, Ur Negative NEGATIVE [facility] Ketones Ql (U) Negative NEGATIVE [facility] Leukocyte esterase Test strip Ql (U) Negative NEGATIVE [facility] Nitrite, Urine Negative NEGATIVE [facility] pH, UA 6.5 5 - 8 [facility] Protein, UA Negative NEGATIVE [facility] Specific [place], UA 1.021 1.005 - 1.03 [facility] Turbidity UA Clear Clear [facility] Urinalysis Comments Microscopic exam not performed based on chemical results unless requested in original order. [facility] Urine Hgb Negative NEGATIVE [facility] Urobilinogen, Urine Normal Normal [facility] Basic Metabolic Panelon Anion gap [Moles/Vol] 11 mmol/L 9 - 17 mmol/L [facility] Calcium [Mass/Vol] 9.9 mg/dL 8.6 - 10. 4 mg/dL [facility] Chloride [Moles/Vol] 101 mmol/L 98 - 10 7 mmol/L [facility] CO2 [Moles/Vol] 24 mmol/L 20 - 31 mmol/L [facility] Creatinine [Mass/Vol] 0.8 mg/dL 0.7 - 1.2 mg/dL [facility] GFR >60 60 - PI NF mL/min [facility] GFR Non- >60 60 - PINF mL/min [facility] GFR/1.73 sq M.predicted MDRD (S/P/Bld) [Vol rate/Area] [facility] Comment on above: Average GFR for 40-4 9 years old: 99 mL/min/1.73sq m Chronic Kidney Disease: <60 mL/min/1.73sq m Kidney failure: <15 mL/min/1.73sq m eGFR calculated using average adult body mass. Additional eGFR calculator available at: http://www.Zigabid/multiple_crcl_2012.htm Glucose [Mass/Vol] 105 mg/dL High 70 - 99 mg/dL [facility] Interpretation and review of laboratory results Abnormal [facility] Potassium [Moles/Vol] 4.2 mmol/L 3.7 - 5.3 mmol/L [facility] Sodium [Moles/Vol] 136 mmol/L 135 - 144 mmol/L [facility] Urea nitrogen (BldV) [Mass/Vol] 15 mg/dL 6 - 20 mg/dL [facility] CBC with Auto Differentialon 06-15-2022 Absolute Eos # 0.27 [facility] Absolute Immature Granulocyte 0.04 [facility] Absolute Lymph # 1.20 [facility] Absolute Dyer # 1.07 [facility] Basophils (Bld) [#/Vol] 0.05 10*3/uL [facility] Basophils/100 WBC (Bld) 1 % 0 - 2 % B ON [facility] Eosinophils/100 WBC (Bld) 3 % 1 - 4 % [facility] Hematocrit (Bld) [Volume fraction] 38.8 % Low 40.7 - 50.3 % [facility] Hemoglobin (Bld) [Mass/Vol] 12.9 g/dL Low 13 - 17 g/dL [facility] Immature granulocytes/100 WBC (Bld) 0 % 0 [facility] Interpretation and review of laboratory results Abnormal [facility] Lymphocytes/100 WBC (Bld) 11 % Low 24 - 43 % [facility] MCH (RBC) [Entitic mass] 27.9 pg 25. 2 - 33.5 pg [facility] MCHC (RBC) [Mass/Vol] 33.2 g/dL 28.4 - 34.8 g/dL [facility] MCV (RBC) [Entitic vol] 83.8 fL 82.6 - 102.9 fL [facility] Monocytes/100 WBC (Bld) 10 % 3 - 12 % B ON [facility] NRBC Automated 0.0 0.0 per 100 WBC [facility] Platelet distribution width (Bld) [Ratio] 18.5 % High 11.8 - 14.4 % [facility] Platelet mean volume (Bld) [Entitic vol] 9.8 fL 8.1 - 13.5 fL [facility] Platelets (Bld) [#/Vol] 224 10*3/uL [facility] RBC (Bld) [#/Vol] 4.63 10*6/uL 4.21 - 5.7 7 m/uL [facility] RBC (Bld) [#/Vol] ANISOCYTOSIS PRESENT [facility] Segmented neutrophils/100 WBC (Bld) 75 % High 36 - 65 % [facility] Segs Absolute 7.90 [facility] WBC (Bld) [#/Vol] 10.5 10*3/uL MAURA Nguyen [facility] COVID-19, Rapidon 06-15-2022 SARS-CoV-2 (COVID-19) RNA CHARO+probe Ql (Unsp spec) Not detected Not Detected [facility] Comment on above: Rapid NAAT: The [...] management decisions. Fact sheet for Healthcare Providers: https://www.fda.gov/media/971042/download Fact sheet for Patients: https://www.fda.gov/media/508848/download Methodology: Isothermal Nucleic Acid Amplification Specimen Description .NASOPHARYNGEAL SWAB [facility] CT CHEST PULMONARY EMBOLISM W CONTRASTon 06-15-2022 Addendum by Akanksha Santoro MD on 06/15/2022 10:18 PM EDT ADDENDUM: There is mediastinal lymphadenopathy best visualized in subcarinal location which are likely reactive to abnormalities within the lungs. [facility] Work Phone: No evidence of pulmonary [...] No acute bone or soft tissue abnormality. [facility] Akanksha Samuels MD - 06/15/2022 [...] findings are most likely due to atelectasis. [employer] Work Phone: Radiology Study observation (narrative) [employer] Work Phone: CT CHEST PULMONARY EMBOLISM W CONTRASTOrdered By: Akanksha Santoro on 06-15-2022 [employer] Work Phone: Hepatic Function Panelon Albumin [Mass/Vol] 3.4 g/dL Low 3.5 - 5.2 g/dL [employer] Albumin/Globulin [Mass ratio] 0.8 {ratio} Low 1 - 2.5 [employer] ALP (Bld) [Catalytic activity/Vol] 85 U/L 40 - 129 U/L [employer] ALT [Catalytic activity/Vol] 22 U/L 5 - 41 U/L [employer] AST [Catalytic activity/Vol] 16 U/L NINF - 40 U/L [facility] Bilirubin [Mass/Vol] 0.41 mg/dL 0.3 - 1 .2 mg/dL [facility] Bilirubin, Indirect 0.26 mg/dL 0 - 1 mg/dL [facility] Bilirubin.indirect [Mass/Vol] 0.15 mg/dL NINF - 0.31 mg/dL [facility] Free PSA/Total PSA [Mass fraction] 7.5 g/dL 6.4 - 8.3 g/dL [facility] Interpretation and review of laboratory results Abnormal [facility] Lactate, Sepsison 06-15-2022 Lactic Acid, Sepsis, Whole Blood 1.0 mmol/L 0.5 - 1.9 mmol/L [facility] Lactic Acid, Sepsis, Whole Blood 1.6 mmol/L 0.5 - 1.9 mmol/L [facility] Sedimentation Rateon 022 Interpretation and review of laboratory results Abnormal [facility] Sed Rate 35 High [facility] Comment on above: ADDED ON [facility] Troponinon 06-15-2022 Troponin, High Sensitivity ng/L 0 - 22 ng/L [facility] Comment on above: High Sensitivity Troponin values cannot be compared with other Troponin methodologies. Patients with high levels of Biotin oral intake (i.e >5mg/day) may have falsely decreased Troponin levels. Samples collected within 8 hours of biotin intake may require additional information for diagnosis. [facility] Troponin, High Sensitivity ng/L 0 - 22 ng/L [facility] Comment on above: High Sensitivity Troponin values cannot be compared with other Troponin methodologies. Patients with high levels of Biotin oral intake (i.e >5mg/day) may have falsely decreased Troponin levels. Samples collected within 8 hours of biotin intake may require additional information for diagnosis. [facility] XR CHEST (2 VW)on 06-15-2022 Increased [...] cardiomediastinal silhouette and pulmonary vessels appear normal. [facility] Dre Gonsalves MD - [...] this area. Radiographic follow-up may be helpful. [employer] Work Phone: Radiology Study observation (narrative) [employer] Work Phone: XR CHEST (2 VW)Ordered By: Soledad Gonsalves on 06-15-2022 [employer] Work Phone: CBC with Auto Differentialon 06-13-2022 Absolute Eos # 0.20 [employer] Absolute Immature Granulocyte 0.03 [facility] [employer] Absolute Lymph # 1.03 Low [employer] Absolute Dyer # 0.91 [facility] [employer] Basophils (Bld) [#/Vol] 0.03 10*3/uL [facility] Basophils/100 WBC (Bld) 0 % 0 - 2 % B ON [facility] Eosinophils/100 WBC (Bld) 2 % 1 - 4 % [facility] Hematocrit (Bld) [Volume fraction] 38.5 % Low 40.7 - 50.3 % [facility] Hemoglobin (Bld) [Mass/Vol] 12.2 g/dL Low 13 - 17 g/dL [facility] Immature granulocytes/100 WBC (Bld) 0 % 0 [facility] Interpretation and review of laboratory results Abnormal [facility] Lymphocytes/100 WBC (Bld) 9 % Low 24 - 43 % [facility] MCH (RBC) [Entitic mass] 27.2 pg 25. 2 - 33.5 pg [facility] MCHC (RBC) [Mass/Vol] 31.7 g/dL 28.4 - 34.8 g/dL [facility] MCV (RBC) [Entitic vol] 85.9 fL 82.6 - 102.9 fL [facility] Monocytes/100 WBC (Bld) 8 % 3 - 12 % B ON [facility] NRBC Automated 0.0 0.0 per 100 WBC [facility] Platelet distribution width (Bld) [Ratio] 18.5 % High 11.8 - 14.4 % [facility] Platelet mean volume (Bld) [Entitic vol] 9.3 fL 8.1 - 13.5 fL [facility] Platelets (Bld) [#/Vol] 181 10*3/uL [facility] RBC (Bld) [#/Vol] 4.48 10*6/uL 4.21 - 5.7 7 m/uL [facility] Segmented neutrophils/100 WBC (Bld) 81 % High 36 - 65 % [facility] Segs Absolute 9.54 High [facility] WBC (Bld) [#/Vol] 11.7 10*3/uL [facility] with Diffon 06-13-2022 Abs. Basophil 0.03 k/uL Normal 0.00-0.20 [facility] Comment on above: Performed By: #### C P, CDP #### [address] [place], [facility]83 [employer]: Joelle Parker MD Abs.Imm.Granulocyte 0.03 k/uL Normal 0.00-0.30 [facility] Comment on above: Performed By: #### C P, CDP #### [address] [place], [place] [address] [employer]: Joelle Parker MD Abs.Neutrophil (Seg) 9.54 k/uL High 1.50-8.10 [facility] Comment on above: Performed By: #### C P, CDP #### [address] [place] [address] [employer]: Joelle Parker MD Basophils/100 WBC (Bld) 0 % Normal 0-2 [facility] Comment on above: Performed By: #### C P, CDP #### [address] [place], [place] [address] [employer]: Joelle Parker MD Eosinophils (Bld) [#/Vol] 0.20 10*3/uL Normal 0.00-0.44 [facility] Comment on above: Performed By: #### C P, CDP #### [address] [place], [facility] [employer]: Joelle Parker MD Eosinophils/100 WBC (Bld) 2 % Normal 1-4 [facility] Comment on above: Performed By: #### C P, CDP #### [address] [place] [address] [employer]: Joelle Parker MD Erythrocyte distribution width (RBC) [Ratio] 18.5 % High 11.8-14.4 [facility] Comment on above: Performed By: #### C P, CDP #### [address] [place], [facility]83 [employer]: Joelle Parker MD Hematocrit (Bld) [Volume fraction] 38.5 % Low 40.7-50.3 [facility] Comment on above: Performed By: #### C P, CDP #### [facility] [address] [place] [address] Dr[address] [place], [place] [id number] [employer]: Joelle Parker MD Hemoglobin (Bld) [Mass/Vol] 12.2 g/dL Low 13.0-17.0 [facility] Comment on above: Performed By: #### C P, CDP #### [address] [place], [facility]83 [employer]: Joelle Parker MD Immature granulocytes/100 WBC (Bld) 0 % Normal 0 [facility] Comment on above: Performed By: #### C P, CDP #### [address] [place], [facility] [employer]: Joelle Parker MD Lymphocytes (Bld) [#/Vol] 1.03 10*3/uL Low 1.10-3.70 [facility] Comment on above: Performed By: #### C P, CDP #### [address] [place], [place] [id number] [employer]: Joelle Parker MD Lymphocytes/100 WBC (Bld) 9 % Low 24-43 [facility] Comment on above: Performed By: #### C P, CDP #### [facility] [address] [place] [address] Dr[place], [facility]83 [employer]: Joelle Parker MD MCH (RBC) [Entitic mass] 27.2 pg Normal 25.2-33.5 [facility] Comment on above: Performed By: #### C P, CDP #### [facility] [address] [place] [address] Dr. [place], [place] [id number] [employer]: Joelle Parker MD MCHC (RBC) [Mass/Vol] 31.7 g/dL Normal 28.4-34.8 [facility] Comment on above: Performed By: #### C P, CDP #### [address] [place], [facility]83 [employer]: Joelle Parker MD MCV (RBC) [Entitic vol] 85.9 fL Normal 82.6-102.9 [facility] Comment on above: Performed By: #### C P, CDP #### [address] [place], [place] [address] [employer]: Joelle Parker MD Monocytes (Bld) [#/Vol] 0.91 10*3/uL Normal 0.10-1.20 [facility] Comment on above: Performed By: #### C P, CDP #### [address] [place], [place] [address] [employer]: Joelle Parker MD Monocytes/100 WBC (Bld) 8 % Normal 3-12 [facility] Comment on above: Performed By: #### C P, CDP #### [address] [place], [place] [address] [employer]: Joelle Parker MD Neutrophil (Seg) 81 % High 36-65 [facility] Comment on above: Performed By: #### C P, CDP #### [address] [place], [facility]83 [employer]: Joelle Parker MD NRBC Automated 0.0 per 100 WBC Normal 0.0 [facility] Comment on above: Performed By: #### C P, CDP #### [address] [place], [facility]83 [employer]: Joelle Parker MD Platelet mean volume (Bld) [Entitic vol] 9.3 fL Normal 8.1-13.5 [facility] Comment on above: Performed By: #### C P, CDP #### [facility] [address] [place], [place] [id number] [employer]: Joelle Parker MD Platelets (Bld) [#/Vol] 181 10*3/uL Normal 138-453 [facility] Comment on above: Performed By: #### C P, CDP #### [facility] [address] [place] [address] [employer]: Joelle Parker MD RBC (Bld) [#/Vol] 4.48 10*6/uL Normal 4.21-5.77 [facility] Comment on above: Performed By: #### C P, CDP #### [facility] [address] [place] [address] [employer]: Joelle Parker MD WBC (Bld) [#/Vol] 11.7 10*3/uL High 3.5-11.3 [facility] Comment on above: Performed By: #### C P, CDP #### [address] [place] [address] [employer]: Joelle Parker MD Comp Metabolic Profon 2021 (cont.) [facility] Comment on above: Result Comment: Aver age GFR for 40-49 years old: 99 mL/min/1.73sq m Chronic Kidney Disease: <60 mL/min/1.73sq m Kidney failure: <15 mL/min/1.73sq m eGFR calculated using average adult body mass. Additional eGFR calculator available at: http://www.Syncano.com/multiple_crcl_2011.htm Performed By: #### C P, CDP #### [facility] [address] [place] [address] [employer]: Joelle Parker MD Albumin [Mass/Vol] 3.8 g/dL Normal 3.5-5.2 [facility] Comment on above: Performed By: #### C P, CDP #### [facility] [address] [place], [place] [id number] [employer]: Joelle Parker MD Albumin/Glob Ratio 0.9 Low 1.0-2.5 [facility] Comment on above: Performed By: #### C P, CDP #### [facility] [address] [place], [place] [id number] [employer]: Joelle Parker MD Alkaline Phos 93 U/L Normal 40-129 [facility] Comment on above: Performed By: #### C P, CDP #### [facility] [address] [place], [place] [id number] [employer]: Joelle Parker MD ALT [Catalytic activity/Vol] 28 U/L Normal 5-41 [facility] Comment on above: Performed By: #### C P, CDP #### [facility] [address] [place], [place] [id number] [employer]: Joelle Parker MD Anion gap [Moles/Vol] 11 mmol/L Normal 9-17 [facility] Comment on above: Performed By: #### C P, CDP #### [facility] [address] [place], [place] [phone] [employer]: Joelle Parker MD AST [Catalytic activity/Vol] 19 U/L Normal <40 [facility] Comment on above: Performed By: #### C P, CDP #### [facility] [address] [place], [place] [id number] [employer]: Joelle Parker MD Bilirubin [Mass/Vol] 0.39 mg/dL Normal 0.3-1.2 [facility] Comment on above: Performed By: #### C P, CDP #### [facility] [address] [place], [place] [id number] [employer]: Joelle Parker MD BUN/CRE Ratio 18 Normal 9-20 [facility] Comment on above: Performed By: #### C P, CDP #### [facility] [address] [place], [place] [phone] [employer]: Joelle Parker MD Calcium [Mass/Vol] 9.7 mg/dL Normal 8.6-10.4 [facility] Comment on above: Performed By: #### C P, CDP #### [facility] [address] [place], [place] [id number] [employer]: Joelle Parker MD Chloride [Moles/Vol] 101 mmol/L Normal 98-107 [facility] Comment on above: Performed By: #### C P, CDP #### [facility] [address] [place], [place] [id number] [employer]: Joelle Parker MD CO2 [Moles/Vol] 25 mmol/L Normal 20-31 [facility] Comment on above: Performed By: #### C P, CDP #### [facility] [address] [place], [place] [phone] [employer]: Joelle Parker MD Creatinine [Mass/Vol] 0.85 mg/dL Normal 0.70-1.20 [facility] Comment on above: Performed By: #### C P, CDP #### [facility] [address] [place], [place] [phone] [employer]: Joelle Parker MD GFR, Amer >60 Normal >60 [facility] Comment on above: Performed By: #### C P, CDP #### [facility] [address] [place], [place] [phone] [employer]: Joelle Parker MD GFR,non Amer >60 Normal >60 [facility] Comment on above: Performed By: #### C P, CDP #### [facility] [address] [place], [place] [phone] [employer]: Joelle Parker MD Glucose [Mass/Vol] 106 mg/dL High 70-99 [facility] Comment on above: Performed By: #### C P, CDP #### [facility] [address] [place] [address] Dr[address] [place], [place] [id number] [employer]: Joelle Parker MD Potassium [Moles/Vol] 4.3 mmol/L Normal 3.7-5.3 [facility] Comment on above: Performed By: #### C P, CDP #### [facility] [address] [place] [address] Dr[address] [place], [place] [address] [employer]: Joelle Parker MD Protein [Mass/Vol] 8.2 g/dL Normal 6.4-8.3 [facility] Comment on above: Performed By: #### C P, CDP #### [address] [place], [place] [id number] [employer]: Joelle Parker MD Sodium [Moles/Vol] 137 mmol/L Normal 135-144 [facility] [facility] Comment on above: Performed By: #### C P, CDP #### [address] [place] [address] Head Sawyer Automatic: Joelle Parker MD Staging: Normal [facility] Comment on above: Result Comment: Stag e 1: Some kidney damage normal GFR Stage 2: Mild kidney damage GFR 60-89 Stage 3: Moderate kidney damage GFR 30-59 Stage 4: Severe kidney damage GFR 15-29 Stage 5: Severe kidney damage GFR <15 ESRD - chronic treatment by dialysis or transplant Performed By: #### C P, CDP #### [facility] [address] [place] [address] Dr. [place], [place] [phone] Head Sawyer Automatic: Joelle Parker MD Urea nitrogen [Mass/Vol] 15 mg/dL Normal 6-20 [facility] Comment on above: Performed By: #### C P, CDP #### [facility] [address] [place] [address] Head Sawyer Automatic: Joelle Parker MD Comprehensive Metabolic Pane tarun 06-13-2022 Albumin [Mass/Vol] 3.8 g/dL 3.5 - 5.2 g/dL [facility] Albumin/Globulin [Mass ratio] 0.9 {ratio} Low 1 - 2.5 [facility] ALP (Bld) [Catalytic activity/Vol] 93 U/L 40 - 129 U/L [facility] ALT [Catalytic activity/Vol] 28 U/L 5 - 41 U/L [facility] Anion gap [Moles/Vol] 11 mmol/L 9 - 17 mmol/L [facility] AST [Catalytic activity/Vol] 19 U/L NINF - 40 U/L [facility] Bilirubin [Mass/Vol] 0.39 mg/dL 0.3 - 1 .2 mg/dL [facility] Calcium [Mass/Vol] 9.7 mg/dL 8.6 - 10. 4 mg/dL [facility] Chloride [Moles/Vol] 101 mmol/L 98 - 10 7 mmol/L [facility] CO2 [Moles/Vol] 25 mmol/L 20 - 31 mmol/L [facility] Creatinine [Mass/Vol] 0.85 mg/dL 0.7 - 1.2 mg/dL [facility] Free PSA/Total PSA [Mass fraction] 8.2 g/dL 6.4 - 8.3 g/dL [facility] GFR >60 60 - PI NF mL/min [facility] GFR Non- >60 60 - PINF mL/min [facility] Glucose [Mass/Vol] 106 mg/dL High 70 - 99 mg/dL [facility] Interpretation and review of laboratory results Abnormal [facility] Potassium [Moles/Vol] 4.3 mmol/L 3.7 - 5.3 mmol/L [facility] Sodium [Moles/Vol] 137 mmol/L 135 - 144 mmol/L [facility] Urea nitrogen (BldV) [Mass/Vol] 15 mg/dL 6 - 20 mg/dL [facility] Urea nitrogen/Creatinine (Bld) [Mass ratio] 18 9 - 20 [facility] Laboratory - Chemistry and C hemistry - challengeon 06-13-2022 GFR/1.73 sq M.predicted MDRD (S/P/Bld) [Vol rate/Area] [facility] Comment on above: Average GFR for 40-4 9 years old: 99 mL/min/1.73sq m Chronic Kidney Disease: <60 mL/min/1.73sq m Kidney failure: <15 mL/min/1.73sq m eGFR calculated using average adult body mass. Additional eGFR calculator available at: http://www.Zigabid/multiple_crcl_2012.htm Stage 1: Some kidney damage normal GFR Stage 2: Mild kidney damage GFR 60-89 Stage 3: Moderate kidney damage GFR 30-59 Stage 4: Severe kidney damage GFR 15-29 Stage 5: Severe kidney damage GFR <15 ESRD - chronic treatment by dialysis or transplant Cult,Blood 05-22-2022 Cult,Blood Specimen Description .BLOOD Culture NO GROWTH 5 DAYS Report Status FINAL 05/22/2022 Normal [facility] Comment on above: Performed By: #### B C #### [facility] [address] [place] [address] [place] [address] Head Sawyer Automatic: Joelle Parker MD [facility] 05-21-2022 Cult,Blood Specimen Description .BLOOD Special Requests 10ML RIGHT HAND Culture POSITIVE Blood Culture DIRECT GRAM STAIN FROM BOTTLE: YEAST NATHANIEL ALBICANS (NOTE) Direct Gram Stain from bottle result called to and read back by: DR MORE @ [phone] ON [id number]. KEB Report Status FINAL 05/21/2022 Abnormal [facility] Comment on above: Performed By: #### B C #### [facility] [address] [place] [address] [place] [address] Head Sawyer Automatic: Joelle Parker MD [facility] 05-11-2022 Cult,Blood Specimen Description .BLOOD Special Requests 20ML LEFT HAND Culture POSITIVE Blood Culture DIRECT GRAM STAIN FROM BOTTLE: YEAST NATHANIEL ALBICANS (NOTE) Direct Gram Stain from bottle result called to and read back by:BILLY [employer] [id number] 05-09-22 RB MIKA Report Status FINAL 05/11/2022 Abnormal [facility] Comment on above: Performed By: #### B C #### [facility] [address] [place], [place] [phone] Head Sawyer Automatic: Joelle Parker MD Cult, Bloodon 05-10-2022 Cult, Blood Specimen Description .BLOOD Special Requests 20ML RIGHT HAND Culture NO GROWTH 5 DAYS Report Status FINAL 05/10/2022 Normal [facility] Comment on above: Performed By: #### B C #### [facility] [address] [place] [address] Head Sawyer Automatic: Joelle Parker MD MRI ANKLE LEFT WO CONTRASTon 05-08-2022 1. No evidence of acute osteomyelitis. Irregularity along the posterosuperior process of the calcaneus is likely postsurgical. 2. Partial-thickness tearing of the insertional Achilles tendon involving approximately 1/3 of the tendon thickness. Moderate to advanced Achilles tendinopathy. [facility] RIS CONSOLIDATED EXAMINATION: MRI OF THE [...] synovial process. The Lisfranc ligament is intact. [facility] Chau Lomax MD - [...] tendon thickness. Moderate to advanced Achilles tendinopathy. [employer] Work Phone: MRI ANKLE LEFT WO CONTRASTOr dered By: Chau Lomax on 05-08-2022 [employer] Work Phone: Basic Metabolic Panel w/ Ref rebecca to MGon 05-07-2022 Anion gap [Moles/Vol] 11 mmol/L 9 - 17 mmol/L [facility] Calcium [Mass/Vol] 8.9 mg/dL 8.6 - 10. 4 mg/dL [facility] Chloride [Moles/Vol] 105 mmol/L 98 - 10 7 mmol/L [employer] CO2 [Moles/Vol] 21 mmol/L 20 - 31 mmol/L [facility] Creatinine [Mass/Vol] 0.62 mg/dL Low 0.70 - 1.20 mg/dL [facility] GFR >60 >60 mL/min [facility] GFR Non- >60 >60 mL/min [facility] GFR/1.73 sq M.predicted MDRD (S/P/Bld) [Vol rate/Area] [facility] Comment on above: Average GFR for 40-4 9 years old: 99 mL/min/1.73sq m Chronic Kidney Disease: <60 mL/min/1.73sq m Kidney failure: <15 mL/min/1.73sq m eGFR calculated using average adult body mass. Additional eGFR calculator available at: http://www.Zigabid/multiple_crcl_2012.htm Glucose [Mass/Vol] 87 mg/dL 70 - 99 mg/dL [facility] Interpretation and review of laboratory results Abnormal [facility] Potassium [Moles/Vol] 4.2 mmol/L 3.7 - 5.3 mmol/L [facility] Sodium [Moles/Vol] 137 mmol/L 135 - 144 mmol/L [facility] Urea nitrogen (BldV) [Mass/Vol] 16 mg/dL 6 - 20 mg/dL [facility] Cult,Urineon 05-07-2022 Cult,Urine Specimen Description .CLEAN CATCH URINE Culture NO GROWTH Report Status FINAL 05/07/2022 Normal [facility] Comment on above: Performed By: #### B C #### [facility] [address] [place], [place] [phone] Head Sawyer Automatic: Joelle Parker MD MRI ANKLE LEFT WO CONTRASTon 05-07-2022 Radiology Study observation (narrative) [facility] Work Phone: C-Reactive Proteinon 022 CRP [Mass/Vol] 36.1 mg/L High 0.0 - 5.0 mg/L [facility] Interpretation and review of laboratory results Abnormal [facility] Microscopic Urinalysison - [facility] Bacteria, UA TRACE Abnormal None [facility] Epithelial Cells UA None [facility] Interpretation and review of laboratory results Abnormal [facility] Mucus, UA TRACE Abnormal None [facility] RBC, UA 0 TO 2 [facility] WBC, UA 0 TO 2 [facility] Sedimentation Rateon 022 Interpretation and review of laboratory results Abnormal [facility] Sed Rate 55 High [facility] Urinalysison 05-06-2022 Bilirubin Urine Negative NEGATIVE [facility] Color, UA Yellow Yellow [facility] Glucose, Ur Negative NEGATIVE [facility] Interpretation and review of laboratory results Abnormal [facility] Ketones Ql (U) Negative NEGATIVE [facility] Leukocyte esterase Test strip Ql (U) Negative NEGATIVE [facility] Nitrite, Urine Negative NEGATIVE [facility] pH, UA 6.5 [facility] Protein, UA Negative NEGATIVE [facility] Specific [place], UA <1.005 Low [facility] Turbidity UA Clear Clear [facility] Urine Hgb TRACE Abnormal NEGATIVE [facility] Urobilinogen, Urine Normal Normal [facility] Urinalysis, Routineon 2021 Bilirubin, SemiQt,Ur Negative Normal NEG [facility] Comment on above: Performed By: #### B C #### [facility] [address] [place] [address] Dr[place] [phone] Head Sawyer Automatic: Joelle Parker MD Blood, Urine TRACE Abnormal NEG [facility] Comment on above: Performed By: #### B C #### [facility] [address] [place] [address] Dr[place] [phone] Head Sawyer Automatic: Joelle Parker MD Clarity (U) Clear Normal CLEAR [facility] Comment on above: Performed By: #### B C #### [facility] [address] [place] [address] [place] [address] Head Sawyer Automatic: Joelle Parker MD Color (U) Yellow Normal YEL [facility] Comment on above: Performed By: #### B C #### [facility] [address] [place] [address] Dr[place], [place] [phone] Head Sawyer Automatic: Joelle Parker MD Glucose Ql (U) Negative Normal NEG [facility] Comment on above: Performed By: #### B C #### [facility] [address] [place] [address] Dr[address] [place], [place] [phone] Head Sawyer Automatic: Joelle Parker MD Ketones Ql (U) Negative Normal NEG [facility] Comment on above: Performed By: #### B C #### [facility] [address] [place] [address] Dr[address] [place], [place] [phone] Head Sawyer Automatic: Joelle Parker MD Leukocyte esterase Test strip Ql (U) Negative Normal NEG [facility] Comment on above: Performed By: #### B C #### [facility] [address] [place] [address] [place] [address] Head Sawyer Automatic: Joelle Parker MD Nitrite,Ur Negative Normal NEG [facility] Comment on above: Performed By: #### B C #### [facility] [address] [place] [address] [place] [address] Head Sawyer Automatic: Joelle Parker MD PH,Ur 6.5 Normal 5.0-9.0 [facility] Comment on above: Performed By: #### B C #### [facility] [address] [place] [address] Dr. [place], [place] [phone] Head Sawyer Automatic: Joelle Parker MD Protein Ql (U) Negative Normal NEG [facility] Comment on above: Performed By: #### B C #### [facility] [address] [place] [address] Dr. [place], [place] [phone] Head Sawyer Automatic: Joelle Parker MD Spec. [place],Ur <1.005 Low 1.010-1.020 [facility] Comment on above: Performed By: #### B C #### [facility] [address] [place] [address] Dr. [place], [place] [phone] Head Sawyer Automatic: Joelle Parker MD Urobilinogen,Ur Normal Normal NORM [facility] Comment on above: Performed By: #### B C #### [facility] [address] [place], [place] [phone] Head Sawyer Automatic: Joelle Parker MD Urinalysis,Microon 2 ----- Normal [facility] Comment on above: Performed By: #### B C #### [facility] [address] [place], [place] [phone] Head Sawyer Automatic: Joelle Parker MD Bacteria TRACE Abnormal NONE [facility] Comment on above: Performed By: #### B C #### [facility] [address] [place], [place] [phone] Head Sawyer Automatic: Joelle Parker MD Epithelial cells LM Ql (Urine sed) None Normal [address] Comment on above: Performed By: #### B C #### [facility] [address] [place], [place] [phone] Head Sawyer Automatic: Joelle Parker MD Mucus Strands TRACE Abnormal NONE [facility] Comment on above: Performed By: #### B C #### [facility] [address] [place], [place] [phone] Head Sawyer Automatic: Joelle Parker MD Urine RBC's 0 TO 2 Normal 0-2 [facility] Comment on above: Performed By: #### B C #### [facility] [address] [place], [place] [phone] Head Sawyer Automatic: Joelle Parker MD Urine WBC's 0 TO [address] Comment on above: Performed By: #### B C #### [facility] [address] [place] [address] Head Sawyer Automatic: Joelle Parker MD CBC with Auto Differentialon 05-05-2022 Absolute Eos # 0.03 [facility] Absolute Immature Granulocyte 0.06 [facility] Absolute Lymph # 0.87 Low [facility] Absolute Dyer # 0.69 [facility] Basophils (Bld) [#/Vol] 0.04 10*3/uL [facility] Basophils/100 WBC (Bld) 0 % 0 - 2 % B ON [facility] Eosinophils/100 WBC (Bld) 0 % Low 1 - 4 % [facility] Hematocrit (Bld) [Volume fraction] 33.7 % Low 40.7 - 50.3 % [facility] Hemoglobin (Bld) [Mass/Vol] 10.6 g/dL Low 13.0 - 17.0 g/dL [facility] Immature granulocytes/100 WBC (Bld) 0 % 0 [facility] Interpretation and review of laboratory results Abnormal [facility] Lymphocytes/100 WBC (Bld) 7 % Low 24 - 43 % [facility] MCH (RBC) [Entitic mass] 26.0 pg 25. 2 - 33.5 pg [facility] MCHC (RBC) [Mass/Vol] 31.5 g/dL 28.4 - 34.8 g/dL [facility] MCV (RBC) [Entitic vol] 82.8 fL 82.6 - 102.9 fL [facility] Monocytes/100 WBC (Bld) 5 % 3 - 12 % [facility] ON [facility] NRBC Automated 0.0 0.0 per 100 WBC [facility] Platelet distribution width (Bld) [Ratio] 15.7 % High 11.8 - 14.4 % [facility] Platelet mean volume (Bld) [Entitic vol] 8.9 fL 8.1 - 13.5 fL [facility] Platelets (Bld) [#/Vol] 196 10*3/uL [facility] RBC (Bld) [#/Vol] 4.07 10*6/uL Low 4.21 - 5.7 7 m/uL [facility] Segmented neutrophils/100 WBC (Bld) 88 % High 36 - 65 % [facility] Segs Absolute 11.77 High [facility] WBC (Bld) [#/Vol] 13.5 10*3/uL High [facility] CBC with Diffon 05-05-2022 Abs. Basophil 0.04 k/uL Normal 0.00-0.20 [facility] Comment on above: Performed By: #### C DP, CMPX #### [facility] [address] [place] [address] Head Sawyer Automatic: Joelle Parker MD Abs.Imm.Granulocyte 0.06 k/uL Normal 0.00-0.30 [facility] Comment on above: Performed By: #### C DP, CMPX #### [facility] [address] [place] [address] Head Sawyer Automatic: Joelle Parker MD Abs.Neutrophil (Seg) 11.77 k/uL High 1.50-8.10 [facility] Comment on above: Performed By: #### C DP, CMPX #### [facility] [address] [place] [address] Head Sawyer Automatic: Joelle Parker MD Basophils/100 WBC (Bld) 0 % Normal 0-2 [facility] Comment on above: Performed By: #### C DP, CMPX #### [facility] [address] [place] [address] Head Sawyer Automatic: Joelle Parker MD Eosinophils (Bld) [#/Vol] 0.03 10*3/uL Normal 0.00-0.44 [facility] Comment on above: Performed By: #### C DP, CMPX #### [facility] [address] [place], [place] [phone] Head Sawyer Automatic: Joelle Parker MD Eosinophils/100 WBC (Bld) 0 % Low 1-4 [facility] Comment on above: Performed By: #### C DP, CMPX #### [facility] [address] [place], [place] [phone] Head Sawyer Automatic: Joelle Parker MD Erythrocyte distribution width (RBC) [Ratio] 15.7 % High 11.8-14.4 [facility] Comment on above: Performed By: #### C DP, CMPX #### [address] [place] [address] Head Sawyer Automatic: Joelle Parker MD Hematocrit (Bld) [Volume fraction] 33.7 % Low 40.7-50.3 [facility] Comment on above: Performed By: #### C DP, CMPX #### [address] [place] [phone] Head Sawyer Automatic: Joelle Parker MD Hemoglobin (Bld) [Mass/Vol] 10.6 g/dL Low 13.0-17.0 [facility] Comment on above: Performed By: #### C DP, CMPX #### [address] [place], [place] [address] Head Sawyer Automatic: Joelle Parker MD Immature granulocytes/100 WBC (Bld) 0 % Normal 0 [facility] Comment on above: Performed By: #### C DP, CMPX #### [address] [place], [facility] Head Sawyer Automatic: Joelle Parker MD Lymphocytes (Bld) [#/Vol] 0.87 10*3/uL Low 1.10-3.70 [facility] Comment on above: Performed By: #### C DP, CMPX #### [address] [place], [place] [phone] Head Sawyer Automatic: Joelle Parker MD Lymphocytes/100 WBC (Bld) 7 % Low 24-43 [facility] Comment on above: Performed By: #### C DP, CMPX #### [address] [place], [place] 1945283 Head Sawyer Automatic: Joelle Parker MD MCH (RBC) [Entitic mass] 26.0 pg Normal 25.2-33.5 [facility] Comment on above: Performed By: #### C DP, CMPX #### [facility] [address] [place], [place] 844[address]83 Head Sawyer Automatic: Joelle Parker MD MCHC (RBC) [Mass/Vol] 31.5 g/dL Normal 28.4-34.8 [facility] Comment on above: Performed By: #### C DP, CMPX #### [facility] [address] [place], [place] 1485183 Head Sawyer Automatic: Joelle Parker MD MCV (RBC) [Entitic vol] 82.8 fL Normal 82.6-102.9 [facility] Comment on above: Performed By: #### C DP, CMPX #### [address] [place] [phone] Head Sawyer Automatic: Joelle Parker MD Monocytes (Bld) [#/Vol] 0.69 10*3/uL Normal 0.10-1.20 [facility] Comment on above: Performed By: #### C DP, CMPX #### [address] [place], [place] 1926783 Head Sawyer Automatic: Joelle Parker MD Monocytes/100 WBC (Bld) 5 % Normal 3-12 [facility] Comment on above: Performed By: #### C DP, CMPX #### [address] [place], [place] [phone] Head Sawyer Automatic: Joelle Parker MD Neutrophil (Seg) 88 % High 36-65 [facility] Comment on above: Performed By: #### C DP, CMPX #### [address] [place] [address] Head Sawyer Automatic: Joelle Parker MD NRBC Automated 0.0 per 100 WBC Normal 0.0 [facility] Comment on above: Performed By: #### C DP, CMPX #### [facility] [address] [place], [place] 1906683 Head Sawyer Automatic: Joelle Parker MD Platelet mean volume (Bld) [Entitic vol] 8.9 fL Normal 8.1-13.5 [facility] Comment on above: Performed By: #### C DP, CMPX #### [facility] [address] [place], [place] 6496383 Head Sawyer Automatic: Joelle Parker MD Platelets (Bld) [#/Vol] 196 10*3/uL Normal 138-453 [facility] Comment on above: Performed By: #### C DP, CMPX #### [facility] [address] [place] [address] Head Sawyer Automatic: Joelle Parker MD RBC (Bld) [#/Vol] 4.07 10*6/uL Low 4.21-5.77 [facility] Comment on above: Performed By: #### C DP, CMPX #### [facility] [address] [place], [place] 9290683 Head Sawyer Automatic: Joelle Parker MD WBC (Bld) [#/Vol] 13.5 10*3/uL High 3.5-11.3 [facility] Comment on above: Performed By: #### C DP, CMPX #### [address] [place], [facility] Head Sawyer Automatic: Joelle Parker MD CT ANKLE LEFT W [...] Erasmo Domínguez MD 05/05/22 Final result Normal [facility] Chronic erosive changes of the posterosuperior aspect of the calcaneus at the Achilles tendon insertion with superimposed acute erosions not excluded. 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 These findings may be sterile although septic bursitis and osteomyelitis cannot be excluded. No soft tissue gas. [facility] RIS CONSOLIDATED EXAMINATION: CT OF THE [...] visualized aspects of the midfoot are unremarkable. [facility] Erasmo Wiseman MD - 05/05/2022 EXAMINATION: [...] cannot be excluded. No soft tissue gas. [employer] Phone: Radiology Study observation (narrative) [employer] Phone: CT ANKLE LEFT W CONTRASTOrde red By: Erasmo Domínguez on 05-05-2022 [facility] Phone: Comp Metabolic Pr/rfx MGon 0 05-05-2022 (cont.) Normal [facility] Comment on above: Result Comment: Aver age GFR for 40-49 years old: 99 mL/min/1.73sq m Chronic Kidney Disease: <60 mL/min/1.73sq m Kidney failure: <15 mL/min/1.73sq m eGFR calculated using average adult body mass. Additional eGFR calculator available at: http://www.Syncano.Minka/multiple_crcl_2011.htm Performed By: #### C NICHOLAS CMPX #### [facility] [address] [place] [address] Head Sawyer Automatic: Joelle Parker MD Albumin/Glob Ratio 0.8 Low 1.0-2.5 [facility] Comment on above: Performed By: #### C NICHOLAS CMPX #### [facility] [address] [place], [place] 567[address]83 Head Sawyer Automatic: Joelle Parker MD Alkaline Phos 82 U/L Normal 40-129 [facility] Comment on above: Performed By: #### C DP, CMPX #### [facility] [address] [place], [place] 1704783 Head Sawyer Automatic: Joelle Parker MD BUN/CRE Ratio 10 Normal 9-20 [facility] Comment on above: Performed By: #### C DP, CMPX #### [facility] [address] [place], [place] 2585683 Head Sawyer Automatic: Joelle Parker MD GFR, Amer >60 Normal >60 [facility] Comment on above: Performed By: #### C DP, CMPX #### [facility] [address] [place], [place] [phone] Head Sawyer Automatic: Joelle Parker MD GFR,non Amer >60 Normal >60 [facility] Comment on above: Performed By: #### C DP, CMPX #### [facility] [address] [place], [place] [phone] Head Sawyer Automatic: Joelle Parker MD Protein [Mass/Vol] 7.9 g/dL Normal 6.4-8.3 [facility] Comment on above: Performed By: #### C DP, CMPX #### [facility] [address] [place], [place] 0389783 Head Sawyer Automatic: Joelle Parker MD Staging: Normal [facility] Comment on above: Result Comment: Stag e 1: Some kidney damage normal GFR Stage 2: Mild kidney damage GFR 60-89 Stage 3: Moderate kidney damage GFR 30-59 Stage 4: Severe kidney damage GFR 15-29 Stage 5: Severe kidney damage GFR <15 ESRD - chronic treatment by dialysis or transplant Performed By: #### C DP, CMPX #### [facility] [address] [place], [place] [id number] [employer] [place]: Joelle Parker MD Urea nitrogen [Mass/Vol] 7 mg/dL Normal 6-20 [facility] Comment on above: Performed By: #### C DP, CMPX #### [facility] [address] [place] [address] [employer] [place] Automatic: Joelle Parker MD Albumin [Mass/Vol] 3.4 g/dL Low 3.5-5.2 [facility] Comment on above: Performed By: #### C DP, CMPX #### [facility] [address] [place] [address] Dr[address] [place], [place] [id number] [employer] [place] Automatic: Joelle Parker MD ALT [Catalytic activity/Vol] 17 U/L Normal 5-41 [facility] Comment on above: Performed By: #### C DP, CMPX #### [address] [place] [address] [employer] [place]: Joelle Parker MD Anion gap [Moles/Vol] 9 mmol/L Normal 9-17 [facility] Comment on above: Performed By: #### C DP, CMPX #### [address] [place] [address] [employer] [place]: Joelle Parker MD AST [Catalytic activity/Vol] 15 U/L Normal <40 [facility] Comment on above: Performed By: #### C DP, CMPX #### [address] [place] [address] [employer] [place]: Joelle Parker MD Bilirubin [Mass/Vol] 0.53 mg/dL Normal 0.3-1.2 [facility] Comment on above: Performed By: #### C DP, CMPX #### [address] [place] [address] [employer] [place]: Joelle Parker MD Calcium [Mass/Vol] 9.1 mg/dL Normal 8.6-10.4 [facility] Comment on above: Performed By: #### C DP, CMPX #### [facility] [address] [place] [address] [employer] [place]: Joelle Parker MD Chloride [Moles/Vol] 100 mmol/L Normal 98-107 [facility] Comment on above: Performed By: #### C DP, CMPX #### [address] [place] [address] [employer] [place]: Joelle Parker MD CO2 [Moles/Vol] 25 mmol/L Normal 20-31 [facility] Comment on above: Performed By: #### C DP, CMPX #### [address] [place] [address] [employer] [place]: Joelle Parker MD Creatinine [Mass/Vol] 0.72 mg/dL Normal 0.70-1.20 [facility] Comment on above: Performed By: #### C DP, CMPX #### [address] [place], [place] [id number] [employer] [place] Automatic: Joelle Parker MD Glucose [Mass/Vol] 111 mg/dL High 70-99 [facility] Comment on above: Performed By: #### C DP, CMPX #### [address] [place] [address] [employer] [place] Automatic: Joelle Parker MD Potassium [Moles/Vol] 3.6 mmol/L Low 3.7-5.3 [facility] Comment on above: Performed By: #### C DP, CMPX #### [address] [place] [address] [employer] [place] Automatic: Joelle Parker MD Sodium [Moles/Vol] 134 mmol/L Low 135-144 [facility] Comment on above: Performed By: #### C DP, CMPX #### [address] [place] [address] [employer] [place] Automatic: Joelle Parker MD Comprehensive Metabolic Pane l w/ Reflex to MGon 05-05-2022 Albumin/Globulin [Mass ratio] 0.8 {ratio} Low [facility] ALP (Bld) [Catalytic activity/Vol] 82 U/L 40 - 129 U/L [facility] Free PSA/Total PSA [Mass fraction] 7.9 g/dL 6.4 - 8.3 g/dL [facility] GFR >60 >60 mL/min [facility] GFR Non- >60 >60 mL/min [facility] Interpretation and review of laboratory results Abnormal [facility] Urea nitrogen (BldV) [Mass/Vol] 7 mg/dL 6 - 20 mg/dL [facility] Urea nitrogen/Creatinine (Bld) [Mass ratio] 10 [facility] Laboratory - Chemistry and C hemistry - challengeon 05-05-2022 GFR/1.73 sq M.predicted MDRD (S/P/Bld) [Vol rate/Area] [facility] Comment on above: Average GFR for 40-4 9 years old: 99 mL/min/1.73sq m Chronic Kidney Disease: <60 mL/min/1.73sq m Kidney failure: <15 mL/min/1.73sq m eGFR calculated using average adult body mass. Additional eGFR calculator available at: http://www.Syncano.Minka/multiple_crcl_2012.htm Stage 1: Some kidney damage normal GFR Stage 2: Mild kidney damage GFR 60-89 Stage 3: Moderate kidney damage GFR 30-59 Stage 4: Severe kidney damage GFR 15-29 Stage 5: Severe kidney damage GFR <15 ESRD - chronic treatment by dialysis or transplant Lactate, Sepsison 05-05-2022 Lactic Acid, Sepsis 1.3 mmol/L Normal 0.5-1.9 [facility] Comment on above: Performed By: #### L ACDS #### [facility] [address] [place] [address] [employer] [place] Automatic: Joelle Parker MD Lactic Acid, Sepsis 1.3 mmol/L 0.5 - 1. 9 mmol/L [facility] CT CHEST WO CONTRASTon 02-14 [...] 02/14/2022to be communicated to a licensed caregiver. [facility] EXAMINATION: CT OF THE [...] base. Upper Abdomen: Unremarkable Soft Tissues/Bones: Unremarkable [facility] Hank Red MD - [...] 02/14/2022to be communicated to a licensed caregiver. [employer] Work Phone: Radiology Study observation (narrative) [employer] [facility] Work Phone: CT CHEST WO CONTRASTOrdered By: Hank Red on 02-14-2022 [employer] Work Phone: ECHO Complete 2D W Doppler W Coloron 02-14-2022 [facility] Transthoracic Echocardiography Report (TTE) Patient Name COTY Date of Study 02/14/2022 TIP Plata Date of 1980 Gender Male Age 42 year(s) Race Room Number Height: 72 inch, 182.88 cm Corporate ID [id number] Weight: 174 pounds, 78.9 kg # Patient Acct [id number] BSA: 2.01 m^2 BMI: 23.6 kg/m^2 # MR # [id number] Customer Support Agent Elva Dejesus Interpreting Physician Alec Cheung Fellow Referring Nurse Practitioner Interpreting Referring Physician Tip Parker, Fellow [employer]ER-NURSERY WORKER Type of Study TTE procedure:2D Echocardiogram, M-Mode, Doppler, Color Doppler. Procedure Date Date: 02/14/2022 Start: 01:14 PM Study Location: [facility] Technical Quality: Fair visualization Indications:Endocardi tis, Bacteremia [...] STV CPACS Alec Cheung MD - 02/14/2022 [facility] Transthoracic Echocardiography Report (TTE) Patient Name COTY Date of Study 02/14/2022 TIP Plata Date of 1980 Gender Male Age 42 year(s) Race Room Number Height: 72 inch, 182.88 cm Corporate ID [id number] Weight: 174 pounds, 78.9 kg # Patient Acct [id number] BSA: 2.01 m^2 BMI: 23.6 kg/m^2 # MR # [id number] Customer Support Agent Elva Dejesus Interpreting Physician Alec Cheung Fellow Referring Nurse Practitioner Interpreting Referring Physician Tip Parker, Fellow MIAN-LUCIANO Type of Study TTE procedure:2D Echocardiogram, M-Mode, Doppler, Color Doppler. Procedure Date Date: 02/14/2022 Start: 01:14 PM Study Location: [facility] Technical Quality: Fair visualization Indications:Endocardi tis, Bacteremia [...] 3.57 mmHg Es (more content not included)... [employer] Work Phone: ECHO Complete 2D W Doppler W ColorOrdered By: Alec Cheung on 02-14-2022 [employer] Work Phone: Basic Metabolic Panel w/ Ref rebecca to MGon 01-30-2022 Anion gap [Moles/Vol] 8 mmol/L Low 9 - 17 mmol/L [facility] Calcium [Mass/Vol] 7.8 mg/dL Low 8.6 - 10. 4 mg/dL [facility] Chloride [Moles/Vol] 103 mmol/L 98 - 10 7 mmol/L [facility] CO2 [Moles/Vol] 23 mmol/L 20 - 31 mmol/L [facility] Creatinine [Mass/Vol] 0.88 mg/dL 0.70 - 1.20 mg/dL [facility] GFR >60 >60 mL/min studdex GFR Non- >60 >60 mL/min [facility] GFR/1.73 sq M.predicted MDRD (S/P/Bld) [Vol rate/Area] [facility] Comment on above: Average GFR for 40-4 9 years old: 99 mL/min/1.73sq m Chronic Kidney Disease: <60 mL/min/1.73sq m Kidney failure: <15 mL/min/1.73sq m eGFR calculated using average adult body mass. Additional eGFR calculator available at: http://www.Zigabid/multiple_crcl_2012.htm Glucose [Mass/Vol] 155 mg/dL High 70 - 99 mg/dL [facility] Potassium [Moles/Vol] 3.9 mmol/L 3.7 - 5.3 mmol/L [facility] Sodium [Moles/Vol] 134 mmol/L Low 135 - 144 mmol/L [facility] Urea nitrogen (BldV) [Mass/Vol] 15 mg/dL 6 - 20 mg/dL [facility] CBC with Auto Differentialon 01-30-2022 Absolute Eos # 0.31 [facility] Absolute Immature Granulocyte 0.10 [employer] [facility] Absolute Lymph # 1.35 [facility] He alth Absolute [place] # 1.[address] [facility] He[facility] lth Basophils (Bld) [#/Vol] 0.00 10*3/uL [facility] Basophils/100 WBC (Bld) 0 % 0 - 2 % [facility] Eosinophils/100 WBC (Bld) 3 % 1 - 4 % [facility] Hematocrit (Bld) [Volume fraction] 29.9 % Low 40.7 - 50.3 % [facility] Hemoglobin.gastrointesti nal spec 1 Ql (Stl) 10.2 g/dL Low 13.0 - 17.0 g/dL [facility] Immature granulocytes/100 WBC (Bld) 1 % High 0 [facility] Interpretation and review of laboratory results Abnormal [facility] Lymphocytes/100 WBC (Bld) 13 % Low 24 - 44 % [facility] MCH (RBC) [Entitic mass] 32.6 pg 25. 2 - 33.5 pg [facility] MCHC (RBC) [Mass/Vol] 34.1 g/dL 28.4 - 34.8 g/dL [facility] MCV (RBC) [Entitic vol] 95.5 fL 82.6 - 102.9 fL [facility] Monocytes/100 WBC (Bld) 17 % High 1 - 7 % [facility] Morphology Adis (Bld) [Interp] ANISOCYTOSIS PRESENT [facility] NRBC Automated 0.0 0.0 per 100 WBC [facility] Platelet distribution width (Bld) [Ratio] 16.2 % High 11.8 - 14.4 % [facility] Platelets (Bld) [#/Vol] See Reflexed IPF Result [facility] RBC (Bld) [#/Vol] 3.13 10*6/uL Low 4.21 - 5.7 7 m/uL [facility] Segmented neutrophils/100 WBC (Bld) 66 % 36 - 66 % [facility] Segs [facility] 6.[facility]Bld[facility] [#/Vol] 10.4 10*3/uL [facility] CKon 01-30-2022 CK [Catalytic activity/Vol] 26 U/L Low 39 - 308 U/L [facility] Hepatic Function Panelon Albumin [Mass/Vol] 1.8 g/dL Low 3.5 - 5.2 g/dL [facility] Albumin/Globulin [Mass ratio] 0.4 {ratio} Low [facility] ALP (Bld) [Catalytic activity/Vol] 42 U/L 40 - 129 U/L [facility] ALT [Catalytic activity/Vol] 15 U/L 5 - 41 U/L [facility] AST [Catalytic activity/Vol] 29 U/L <40 [facility] Bilirubin [Mass/Vol] 1.66 mg/dL High 0.3 - 1 .2 mg/dL [facility] Bilirubin, Indirect 0.96 mg/dL 0.00 - 1 .00 mg/dL [facility] Bilirubin.indirect [Mass/Vol] 0.70 mg/dL High <0.31 [facility] Free PSA/Total PSA [Mass fraction] 6.4 g/dL 6.4 - 8.3 g/dL [facility] Immature Platelet Fractionon 01-30-2022 Interpretation and review of laboratory results Abnormal [facility] Platelet, Fluorescence 75 Low Me [facility] Comment on above: ORDERED BY LAB Platelet, Immature Fraction 3.3 % 1.1 - 10.3 % [facility] Comment on above: ORDERED BY LAB [facility] [employer] No Panel Informationon 01-30 Interpretation and review of laboratory results Abnormal [facility] SURGICAL PATHOLOGY REPORTon 01-30-2022 Surgical Pathology Report [...] SURGICAL PATHOLOGY CONSULTATION Patient Name: TIP ANSARI [facility] Rec: [id number] Path Number: [id number] [facility] [employer] [employer] ANATOMIC PATHOLOGY [address] [place] [address]. [place], [place] [address] [facility] Basic Metabolic Panel w/ Ref rebecca to MGon 01-29-2022 Anion gap [Moles/Vol] 10 mmol/L 9 - 17 mmol/L [facility] Calcium [Mass/Vol] 8.6 mg/dL 8.6 - 10. 4 mg/dL [facility] Chloride [Moles/Vol] 108 mmol/L High 98 - 10 7 mmol/L [facility] CO2 [Moles/Vol] 20 mmol/L 20 - 31 mmol/L [facility] Creatinine [Mass/Vol] 0.85 mg/dL 0.70 - 1.20 mg/dL [facility] GFR >60 >60 mL/min [facility] GFR Non- >60 >60 mL/min [facility] GFR/1.73 sq M.predicted MDRD (S/P/Bld) [Vol rate/Area] [facility] Comment on above: Average GFR for 40-4 9 years old: 99 mL/min/1.73sq m Chronic Kidney Disease: <60 mL/min/1.73sq m Kidney failure: <15 mL/min/1.73sq m eGFR calculated using average adult body mass. Additional eGFR calculator available at: http://www.Zigabid/multiple_crcl_2012.htm Glucose [Mass/Vol] 95 mg/dL 70 - 99 mg/dL [facility] Potassium [Moles/Vol] 4.2 mmol/L 3.7 - 5.3 mmol/L [facility] Sodium [Moles/Vol] 138 mmol/L 135 - 144 mmol/L [facility] Urea nitrogen (BldV) [Mass/Vol] 31 mg/dL High 6 - 20 mg/dL [facility] CBC with Auto Differentialon 01-29-2022 Absolute Eos # 0.27 [facility] th Absolute Immature Granulocyte 0.05 [facility] Absolute Lymph # 1.[address] [facility] He alth Absolute [place] [facility].01 [facility] Basophils (Bld) [#/Vol] 0.05 10*3/uL [facility] Basophils/100 WBC (Bld) 1 % 0 - 2 % [facility] Eosinophils/100 WBC (Bld) 3 % 1 - 4 % [facility] Hematocrit (Bld) [Volume fraction] 29.8 % Low 40.7 - 50.3 % [facility] Hemoglobin.gastrointesti nal spec 1 Ql (Stl) 9.4 g/dL Low 13.0 - 17.0 g/dL [facility] Immature granulocytes/100 WBC (Bld) 1 % High 0 [facility] [employer] Interpretation and review of laboratory results Abnormal [facility] Lymphocytes/100 WBC (Bld) 10 % Low 24 - 43 % [facility] MCH (RBC) [Entitic mass] 28.0 pg 25. 2 - 33.5 pg [facility] MCHC (RBC) [Mass/Vol] 31.5 g/dL 28.4 - 34.8 g/dL [facility] MCV (RBC) [Entitic vol] 88.7 fL 82.6 - 102.9 fL [facility] Monocytes/100 WBC (Bld) 10 % 3 - 12 % [facility] [employer] NRBC Automated 0.0 0.0 per 100 WBC [facility] Platelet distribution width (Bld) [Ratio] 17.4 % High 11.8 - 14.4 % [facility] Platelet mean volume (Bld) [Entitic vol] 8.7 fL 8.1 - 13.5 fL [facility] Platelets (Bld) [#/Vol] 131 10*3/uL Low [facility] RBC (Bld) [#/Vol] 3.36 10*6/uL Low 4.21 - 5.7 7 m/uL [facility] RBC (Bld) [#/Vol] ANISOCYTOSIS PRESENT [facility] Segmented neutrophils/100 WBC (Bld) 76 % High 36 - 65 % [facility] Segs Absolute 7.60 [facility] WBC (Bld) [#/Vol] 10.0 10*3/uL [facility] [employer] CKon 01-29-2022 CK [Catalytic activity/Vol] 10 U/L Low 39 - 308 U/L [facility] EKG 12 LeadOrdered By: Dorothy Pink on 01-29-2022 Atrial Rate 139 BPM [employer] Work Phone: P [place] 54 degrees [employer] Work Phone: P-R Interval 136 ms [employer] Work Phone: Q-T Interval 278 ms [employer] Work Phone: QRS Duration 78 ms [employer] Work Phone: QTc Calculation (Bazett) 423 ms [employer] Work Phone: R [place] 65 degrees [employer] Work Phone: T [place] 51 degrees [employer] Work Phone: Ventricular Rate 139 BPM [employer] [facility] Work Phone: [employer] Work Phone: EKG 12 Leadon 01-29-2022 Sinus tachycardia Otherwise normal ECG No previous ECGs available [facility] Dorothy Fu MD - 01/29/2022 Sinus tachycardia Otherwise normal ECG No previous ECGs available [employer] Work Phone: Hepatic Function Panelon Albumin [Mass/Vol] 2.6 g/dL Low 3.5 - 5.2 g/dL [facility] Albumin/Globulin [Mass ratio] 0.7 {ratio} Low [facility] ALP (Bld) [Catalytic activity/Vol] 88 U/L 40 - 129 U/L [facility] ALT [Catalytic activity/Vol] 39 U/L 5 - 41 U/L [facility] AST [Catalytic activity/Vol] 23 U/L <40 [facility] Bilirubin [Mass/Vol] 0.38 mg/dL 0.3 - 1 .2 mg/dL [facility] Bilirubin, Indirect 0.27 mg/dL 0.00 - 1 .00 mg/dL [facility] Bilirubin.indirect [Mass/Vol] 0.11 mg/dL <0.31 [facility] Free PSA/Total PSA [Mass fraction] 6.2 g/dL Low 6.4 - 8.3 g/dL [facility] Panel Informationon 01-29 Interpretation and review of laboratory results Abnormal [facility] P[facility] Glucose Fingerstickon Glucose [Mass/Vol] 100 mg/dL 75 - 110 mg/dL [facility] [employer] Basic Metabolic Panel w/ Ref rebecca to MGon 01-28-2022 Anion gap [Moles/Vol] 14 mmol/L 9 - 17 mmol/L [facility] Calcium [Mass/Vol] 8.9 mg/dL 8.6 - 10. 4 mg/dL [facility] Chloride [Moles/Vol] 103 mmol/L 98 - 10 7 mmol/L [facility] CO2 [Moles/Vol] 20 mmol/L 20 - 31 mmol/L [facility] Creatinine [Mass/Vol] 0.98 mg/dL 0.70 - 1.20 mg/dL [facility] GFR >60 >60 mL/min [facility] GFR Non- >60 >60 mL/min [facility] GFR/1.73 sq M.predicted MDRD (S/P/Bld) [Vol rate/Area] [facility] Comment on above: Average GFR for 40-4 9 years old: 99 mL/min/1.73sq m Chronic Kidney Disease: <60 mL/min/1.73sq m Kidney failure: <15 mL/min/1.73sq m eGFR calculated using average adult body mass. Additional eGFR calculator available at: http://www.Zigabid/multiple_crcl_2012.htm Glucose [Mass/Vol] 153 mg/dL High 70 - 99 mg/dL [facility] Interpretation and review of laboratory results Abnormal [facility] Potassium [Moles/Vol] 3.5 mmol/L Low 3.7 - 5.3 mmol/L [facility] Sodium [Moles/Vol] 137 mmol/L 135 - 144 mmol/L [facility] Urea nitrogen (BldV) [Mass/Vol] 29 mg/dL High 6 - 20 mg/dL [facility] CBC with Auto Differentialon 01-28-2022 Absolute Eos # 0.24 [facility] th Absolute Immature Granulocyte 0.08 [facility] Absolute Lymph # 1.40 [facility] Absolute [place] # 0.46 [facility] Basophils (Bld) [#/Vol] 0.03 10*3/uL [facility] Basophils/100 WBC (Bld) 0 % 0 - 2 % [facility] Eosinophils/100 WBC (Bld) 3 % 1 - 4 % [facility] Hematocrit (Bld) [Volume fraction] 30.1 % Low 40.7 - 50.3 % [facility] Hemoglobin.gastrointesti nal spec 1 Ql (Stl) 9.4 g/dL Low 13.0 - 17.0 g/dL [facility] Immature granulocytes/100 WBC (Bld) 1 % High 0 [facility] Interpretation and review of laboratory results Abnormal [facility] Lymphocytes/100 WBC (Bld) 18 % Low 24 - 43 % [facility] MCH (RBC) [Entitic mass] 28.1 pg 25. 2 - 33.5 pg [facility] MCHC (RBC) [Mass/Vol] 31.2 g/dL 28.4 - 34.8 g/dL [facility] MCV (RBC) [Entitic vol] 90.1 fL 82.6 - 102.9 fL [facility] Monocytes/100 WBC (Bld) 6 % 3 - 12 % [facility] NRBC Automated 0.0 0.0 per 100 WBC [facility] Platelet distribution width (Bld) [Ratio] 16.6 % High 11.8 - 14.4 % [facility] Platelet mean volume (Bld) [Entitic vol] 8.8 fL 8.1 - 13.5 fL [facility] Platelets (Bld) [#/Vol] 178 10*3/uL [facility] RBC (Bld) [#/Vol] 3.34 10*6/uL Low 4.21 - 5.7 7 m/uL [facility] RBC (Bld) [#/Vol] ANISOCYTOSIS PRESENT [facility] Segmented neutrophils/100 WBC (Bld) 72 % High 36 - 65 % [facility] Segs Absolute 5.55 [facility] WBC (Bld) [#/Vol] 7.8 10*3/uL [facility] CKon 01-28-2022 CK [Catalytic activity/Vol] 8 U/L Low 39 - 308 U/L [facility] Interpretation and review of laboratory results Abnormal [facility] Culture, Blood 1on 2 Bacteria identified Cx Nom (Unsp spec) NO GROWTH 5 DAYS [facility] Special Requests RIGHT FOREARM 20ML [facility] Specimen Description .BLOOD [facility] Bacteria identified Cx Nom (Unsp spec) NO GROWTH 5 DAYS [facility] Special Requests RIGHT HAND 20ML [facility] Specimen Description .BLOOD [facility] Hepatic Function Panelon Albumin [Mass/Vol] 3 g/dL Low 3.5 - 5.2 g/dL [facility] Albumin/Globulin [Mass ratio] 0.9 {ratio} Low [facility] ALP (Bld) [Catalytic activity/Vol] 96 U/L 40 - 129 U/L [facility] ALT [Catalytic activity/Vol] 21 U/L 5 - 41 U/L [facility] AST [Catalytic activity/Vol] 10 U/L <40 [facility] Bilirubin [Mass/Vol] mg/dL Low 0.3 - 1 .2 mg/dL [facility] Bilirubin, Indirect Can not be calculated 0.00 - 1.00 mg/dL [facility] Bilirubin.indirect [Mass/Vol] mg/dL <0.31 mg/dL [facility] Free PSA/Total PSA [Mass fraction] 6.4 g/dL 6.4 - 8.3 g/dL [facility] Interpretation and review of laboratory results Abnormal [facility] Lactic Acidon 01-28-2022 Lactic Acid, Whole Blood 1.6 mmol/L 0.7 - 2.1 mmol/L [facility] Interpretation and review of laboratory results Abnormal [facility] Lactic Acid, Whole Blood 4.9 mmol/L High 0.7 - 2.1 mmol/L [facility] Magnesiumon 01-28-2022 Magnesium [Mass/Vol] 1.7 mg/dL 1.6 - 2 .6 mg/dL [facility] Basic Metabolic Panel w/ Ref rebecca to MGon 01-27-2022 Anion gap [Moles/Vol] 11 mmol/L 9 - 17 mmol/L [facility] Calcium [Mass/Vol] 9.1 mg/dL 8.6 - 10. 4 mg/dL [facility] Chloride [Moles/Vol] 101 mmol/L 98 - 10 7 mmol/L [facility] CO2 [Moles/Vol] 24 mmol/L 20 - 31 mmol/L [facility] Creatinine [Mass/Vol] 0.93 mg/dL 0.70 - 1.20 mg/dL [facility] GFR >60 >60 mL/min [facility] GFR Non- >60 >60 mL/min [facility] GFR/1.73 sq M.predicted MDRD (S/P/Bld) [Vol rate/Area] [facility] Comment on above: Average GFR for 40-4 9 years old: 99 mL/min/1.73sq m Chronic Kidney Disease: <60 mL/min/1.73sq m Kidney failure: <15 mL/min/1.73sq m eGFR calculated using average adult body mass. Additional eGFR calculator available at: http://www.Syncano.Minka/multiple_crcl_2011.htm Glucose [Mass/Vol] 187 mg/dL High 70 - 99 mg/dL [facility] Potassium [Moles/Vol] 4.4 mmol/L 3.7 - 5.3 mmol/L [facility] Sodium [Moles/Vol] 136 mmol/L 135 - 144 mmol/L [facility] Urea nitrogen (BldV) [Mass/Vol] 25 mg/dL High 6 - 20 mg/dL [facility] CBC with Auto Differentialon 01-27-2022 Absolute Eos # 0.20 [facility] th Absolute Immature Granulocyte 0.00 [facility] Absolute Lymph # 1.39 [facility] alth Absolute [place] [facility] 0.79 [facility] Basophils (Bld) [#/Vol] 0.00 10*3/uL [facility] Basophils/100 WBC (Bld) 0 % 0 - 2 % [facility] Eosinophils/100 WBC (Bld) 1 % 1 - 4 % [facility] Hematocrit (Bld) [Volume fraction] 31.8 % Low 40.7 - 50.3 % [facility] Hemoglobin.gastrointesti nal spec 1 Ql (Stl) 10.1 g/dL Low 13.0 - 17.0 g/dL [facility] Immature granulocytes/100 WBC (Bld) 0 % 0 [facility] Interpretation and review of laboratory results Abnormal [facility] Lymphocytes/100 WBC (Bld) 7 % Low 24 - 44 % [facility] MCH (RBC) [Entitic mass] 27.5 pg 25. 2 - 33.5 pg [facility] MCHC (RBC) [Mass/Vol] 31.8 g/dL 28.4 - 34.8 g/dL [facility] MCV (RBC) [Entitic vol] 86.6 fL 82.6 - 102.9 fL [facility] Monocytes/100 WBC (Bld) 4 % 1 - 7 % [facility] Morphology Adis (Bld) [Interp] ANISOCYTOSIS PRESENT [facility] NRBC Automated 0.0 0.0 per 100 WBC [facility] Platelet distribution width (Bld) [Ratio] 16.1 % High 11.8 - 14.4 % [facility] Platelet mean volume (Bld) [Entitic vol] 9.2 fL 8.1 - 13.5 fL [facility] Platelets (Bld) [#/Vol] 201 10*3/uL [facility] RBC (Bld) [#/Vol] 3.67 10*6/uL Low 4.21 - 5.7 7 m/uL [facility] Segmented neutrophils/100 WBC (Bld) 88 % High 36 - 66 % [facility] Segs Absolute 17.[address] [facility] WBC (Bld) [#/Vol] 19.8 10*3/uL High [facility] Health CKon 01-27-2022 CK [Catalytic activity/Vol] 11 U/L Low 39 - 308 U/L [facility] Hepatic Function Panelon Albumin [Mass/Vol] 3.1 g/dL Low 3.5 - 5.2 g/dL [facility] Albumin/Globulin [Mass ratio] 0.8 {ratio} Low [facility] ALP (Bld) [Catalytic activity/Vol] 87 U/L 40 - 129 U/L [facility] ALT [Catalytic activity/Vol] 27 U/L 5 - 41 U/L [facility] AST [Catalytic activity/Vol] 14 U/L <40 [facility] Bilirubin [Mass/Vol] 0.30 mg/dL 0.3 - 1 .2 mg/dL [facility] Bilirubin, Indirect 0.21 mg/dL 0.00 - 1 .00 mg/dL [facility] Bilirubin.indirect [Mass/Vol] 0.09 mg/dL <0.31 [facility] Free PSA/Total PSA [Mass fraction] 7.2 g/dL 6.4 - 8.3 g/dL [facility] No Panel Informationon 01-27 Interpretation and review of laboratory results Abnormal [facility] Basic Metabolic Panel w/ Ref rebecca to MGon 01-26-2022 Anion gap [Moles/Vol] 12 mmol/L 9 - 17 mmol/L [facility] Calcium [Mass/Vol] 9.5 mg/dL 8.6 - 10. 4 mg/dL [facility] Chloride [Moles/Vol] 104 mmol/L 98 - 10 7 mmol/L [facility] CO2 [Moles/Vol] 21 mmol/L 20 - 31 mmol/L [facility] Creatinine [Mass/Vol] 0.95 mg/dL 0.70 - 1.20 mg/dL [facility] GFR >60 >60 mL/min [facility] GFR Non- >60 >60 mL/min [facility] GFR/1.73 sq M.predicted MDRD (S/P/Bld) [Vol rate/Area] [facility] Comment on above: Average GFR for 40-4 9 years old: 99 mL/min/1.73sq m Chronic Kidney Disease: <60 mL/min/1.73sq m Kidney failure: <15 mL/min/1.73sq m eGFR calculated using average adult body mass. Additional eGFR calculator available at: http://www.Zigabid/multiple_crcl_2011.htm Glucose [Mass/Vol] 123 mg/dL High 70 - 99 mg/dL [facility] Potassium [Moles/Vol] 4.2 mmol/L 3.7 - 5.3 mmol/L [facility] Sodium [Moles/Vol] 137 mmol/L 135 - 144 mmol/L [facility] Urea nitrogen (BldV) [Mass/Vol] 26 mg/dL High 6 - 20 mg/dL [facility] CBC with Auto Differentialon 01-26-2022 Absolute Eos # 0.42 [facility] th Absolute Immature Granulocyte 0.09 [facility] Absolute Lymph # 1.63 [facility] alth Absolute [place] # 1.11 [facility] lth Basophils (Bld) [#/Vol] 0.07 10*3/uL [facility] Basophils/100 WBC (Bld) 1 % 0 - 2 % [facility] Eosinophils/100 WBC (Bld) 5 % High 1 - 4 % [facility] Hematocrit (Bld) [Volume fraction] 33.3 % Low 40.7 - 50.3 % [facility] Hemoglobin.gastrointesti nal spec 1 Ql (Stl) 10.7 g/dL Low 13.0 - 17.0 g/dL [facility] Immature granulocytes/100 WBC (Bld) 1 % High 0 [facility] Interpretation and review of laboratory results Abnormal [facility] Lymphocytes/100 WBC (Bld) 20 % Low 24 - 43 % [facility] MCH (RBC) [Entitic mass] 27.8 pg 25. 2 - 33.5 pg [facility] MCHC (RBC) [Mass/Vol] 32.1 g/dL 28.4 - 34.8 g/dL [facility] MCV (RBC) [Entitic vol] 86.5 fL 82.6 - 102.9 fL [facility] Monocytes/100 WBC (Bld) 14 % High 3 - 12 % [facility] NRBC Automated 0.0 0.0 per 100 WBC [facility] Platelet distribution width (Bld) [Ratio] 16.6 % High 11.8 - 14.4 % [facility] Platelet mean volume (Bld) [Entitic vol] 8.7 fL 8.1 - 13.5 fL [facility] Platelets (Bld) [#/Vol] 183 10*3/uL [facility] RBC (Bld) [#/Vol] 3.85 10*6/uL Low 4.21 - 5.7 7 m/uL [facility] RBC (Bld) [#/Vol] ANISOCYTOSIS PRESENT [facility] Segmented neutrophils/100 WBC (Bld) 59 % 36 - 65 % [facility] Segs Absolute 4.87 [facility] WBC (Bld) [#/Vol] 8.2 10*3/uL [facility] CKon 01-26-2022 CK [Catalytic activity/Vol] 10 U/L Low 39 - 308 U/L [facility] Culture, Blood 1on 2 Bacteria identified Cx Nom (Unsp spec) NO GROWTH 5 DAYS [facility] Special Requests UNKNOWN [facility] Specimen Description .BLOOD [facility] FLUORO FOR SURGICAL PROCEDUR ESon 01-26-2022 Radiology exam is complete. No Radiologist dictation. Please follow up with ordering provider. [facility] RIS CONSOLIDATED Hepatic Function Panelon Albumin [Mass/Vol] 3.1 g/dL Low 3.5 - 5.2 g/dL [facility] Albumin/Globulin [Mass ratio] 0.6 {ratio} Low [facility] ALP (Bld) [Catalytic activity/Vol] 99 U/L 40 - 129 U/L [facility] ALT [Catalytic activity/Vol] 30 U/L 5 - 41 U/L [facility] AST [Catalytic activity/Vol] 19 U/L <40 [facility] Bilirubin [Mass/Vol] 0.21 mg/dL Low 0.3 - 1 .2 mg/dL [facility] Bilirubin, Indirect Can not be calculated 0.00 - 1.00 mg/dL [facility] Bilirubin.indirect [Mass/Vol] mg/dL <0.31 mg/dL [facility] Free PSA/Total PSA [Mass fraction] 8.0 g/dL 6.4 - 8.3 g/dL [facility] No Panel Informationon 01-26 Interpretation and review of laboratory results [facility] US Heart Transesophagealon 0 01-26-2022 Transesophageal Echocardiography Report (GIANFRANCO) Patient Name COTY MIRANDA Date of Study 01/24/2022 A Date of 1980 Gender Male Age 42 year(s) Race Room Number 2009 Height: 72 inch, 182.88 cm Corporate ID [id number] Weight: 161 pounds, 73 kg # Patient Acct [id number] BSA: 1.94 m^2 BMI: 21.84 # kg/m^2 MR # [id number] Customer Support Agent Karin Denis Interpreting Physician Gordo Rueda [employer] Fellow Gaye Lewis Referring Nurse Practitioner Interpreting Referring Physician MARISOL ANDREA, * Fellow Type of Study GIANFRANCO procedure:2D echocardiogram, Color Doppler, TRANSESOPHAGEAL ECHO. Procedure Date Date: 01/24/2022 Start: 10:42 AM Study Location: [facility] Technical Quality: Good visualization Indications:Endocardi tis. History [...] Miscellaneous The aorta shows mild plaque formation. [facility] Gauri Guerrero MD - 01/26/2022 Transesophageal Echocardiography Report (GIANFRANCO) Patient Name COTY MIRANDA Date of Study 01/24/2022 A Date of 1980 Gender Male Age 42 year(s) Race Room Number 2010 Height: 72 inch, 182.88 cm Corporate ID [id number] Weight: 161 pounds, 73 kg # Patient Acct [id number] BSA: 1.94 m^2 BMI: 21.84 # kg/m^2 MR # [id number] Customer Support Agent Karin Denis Interpreting Physician Gordo Rueda [employer] Fellow Gaye Lewis Referring Nurse Practitioner Interpreting Referring Physician MARISOL ANDREA, * Fellow Type of Study GIANFRANCO procedure:2D echocardiogram, Color Doppler, TRANSESOPHAGEAL ECHO. Procedure Date Date: 01/24/2022 Start: 10:42 AM Study Location: [facility] Technical Quality: Good visualization Indications:Endocardi tis. History [...] eccentric tricuspid regurgitation. Signature - - - - FINDINGS Left [...] Miscellaneous The aorta shows mild plaque formation. [facility] Work Phone: US Heart TransesophagealOrde red By: Gauri Guerrero on 01-26-2022 [facility] Work Phone: Basic Metabolic Panel w/ Ref rebecca to MGon 01-25-2022 Anion gap [Moles/Vol] 14 mmol/L 9 - 17 mmol/L [facility] Calcium [Mass/Vol] 9.0 mg/dL 8.6 - 10. 4 mg/dL [facility] Chloride [Moles/Vol] 105 mmol/L 98 - 10 7 mmol/L [facility] CO2 [Moles/Vol] 20 mmol/L 20 - 31 mmol/L [facility] Creatinine [Mass/Vol] 0.82 mg/dL 0.70 - 1.20 mg/dL [facility] GFR >60 >60 mL/min studdex GFR Non- >60 >60 mL/min [facility] GFR/1.73 sq M.predicted MDRD (S/P/Bld) [Vol rate/Area] [facility] Comment on above: Average GFR for 40-4 9 years old: 99 mL/min/1.73sq m Chronic Kidney Disease: <60 mL/min/1.73sq m Kidney failure: <15 mL/min/1.73sq m eGFR calculated using average adult body mass. Additional eGFR calculator available at: http://www.Zigabid/multiple_crcl_2011.htm Glucose [Mass/Vol] 109 mg/dL High 70 - 99 mg/dL [facility] Potassium [Moles/Vol] 4.4 mmol/L 3.7 - 5.3 mmol/L [facility] Sodium [Moles/Vol] 139 mmol/L 135 - 144 mmol/L [facility] Urea nitrogen (BldV) [Mass/Vol] 19 mg/dL 6 - 20 mg/dL [facility] CBC with Auto Differentialon 01-25-2022 Absolute Eos # 0.34 [facility] th Absolute Immature Granulocyte 0.07 [facility] Absolute Lymph # 1.54 [facility] alth Absolute [place]yer # 1.01 [facility] lt Basophils (Bld) [#/Vol] 0.04 10*3/uL [facility] Basophils/100 WBC (Bld) 0 % 0 - 2 % [facility] Eosinophils/100 WBC (Bld) 4 % 1 - 4 % [facility] Hematocrit (Bld) [Volume fraction] 34.5 % Low 40.7 - 50.3 % [facility] Hemoglobin.gastrointesti nal spec 1 Ql (Stl) 10.6 g/dL Low 13.0 - 17.0 g/dL [facility] Immature granulocytes/100 WBC (Bld) 1 % High 0 [facility] Interpretation and review of laboratory results Abnormal [facility] Lymphocytes/100 WBC (Bld) 17 % Low 24 - 43 % [facility] MCH (RBC) [Entitic mass] 27.5 pg 25. 2 - 33.5 pg [facility] MCHC (RBC) [Mass/Vol] 30.7 g/dL 28.4 - 34.8 g/dL [facility] MCV (RBC) [Entitic vol] 89.6 fL 82.6 - 102.9 fL [facility] Monocytes/100 WBC (Bld) 11 % 3 - 12 % [facility] NRBC Automated 0.0 0.0 per 100 WBC [facility] Platelet distribution width (Bld) [Ratio] 16.6 % High 11.8 - 14.4 % [facility] Platelet mean volume (Bld) [Entitic vol] 9.2 fL 8.1 - 13.5 fL [facility] Platelets (Bld) [#/Vol] 189 10*3/uL [facility] RBC (Bld) [#/Vol] 3.85 10*6/uL Low 4.21 - 5.7 7 m/uL [facility] RBC (Bld) [#/Vol] ANISOCYTOSIS PRESENT [facility] Segmented neutrophils/100 WBC (Bld) 67 % High 36 - 65 % [facility]s [facility] [#/Vol] 9.0 10*3/uL [facility] CKon 01-25-2022 CK [Catalytic activity/Vol] 9 U/L Low 39 - 308 U/L [facility] Cult,Bloodon 01-25-2022 Cult,Blood Specimen Description .BLOOD Special Requests 5 ML R ELBOW Culture NO GROWTH 5 DAYS Report Status FINAL 01/25/2022 Normal [facility] Comment on above: Performed By: #### B C #### [facility] [address] [place] [address] [employer]: Joelle Parker MD Cult,Blood Specimen Description .BLOOD Special Requests 20 ML LEFT FOREARM Culture NO GROWTH 5 DAYS Report Status FINAL 01/25/2022 [facility] Comment on above: Performed By: #### B C #### [facility] [address] [place] [address] [employer]: Joelle Parker MD Culture, Blood 1on 2 Bacteria identified Cx Nom (Unsp spec) Positive [facility] Bacteria identified Cx Nom (Unsp spec) DIRECT GRAM STAIN FROM BOTTLE: YEAST [facility] Bacteria identified Cx Nom (Unsp spec) Detected: Nathaniel albicans Detected: Methodology- Polymerase Chain Reaction (PCR) [facility] Bacteria identified Cx Nom (Unsp spec) NATHANIEL ALBICANS [facility] Bacteria identified Cx Nom (Unsp spec) (NOTE) Direct Gram Stain from bottle and Polymerase Chain Reaction (PCR) results called to and read back by: SRUTHI Sawyer RN AT 1925 ON 01/22/22. [facility] Special Requests 5ML UNK SITE [facility] Specimen Description .BLOOD [facility] Special Requests 5ML R HAND [facility] Special Requests 5ML R WRIST [facility] ealth Hepatic Function Panelon Albumin [Mass/Vol] 3 g/dL Low 3.5 - 5.2 g/dL [facility] Albumin/Globulin [Mass ratio] 0.7 {ratio} Low [facility] ALP (Bld) [Catalytic activity/Vol] 99 U/L 40 - 129 U/L [facility] ALT [Catalytic activity/Vol] 31 U/L 5 - 41 U/L [facility] AST [Catalytic activity/Vol] 21 U/L <40 [facility] Bilirubin [Mass/Vol] 0.20 mg/dL Low 0.3 - 1 .2 mg/dL [facility] Bilirubin, Indirect Can not be calculated 0.00 - 1.00 mg/dL [facility] Bilirubin.indirect [Mass/Vol] mg/dL <0.31 mg/dL [facility] Free PSA/Total PSA [Mass fraction] 7.5 g/dL 6.4 - 8.3 g/dL [facility] Infectious Disease Intervent ionon 01-25-2022 Intervention Targeted therapy [facility] 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 [facility] FAQ Catheter Associated Blood Stream Infections and [facility] [id number] REV. 05/23 Nursing and Booklet left at bedside or in chart. Patient (Family or POA) acknowledged understanding of information taught and agreed to procedure. Teofilo Becker RN [facility] Work Phone: Interpretation and review of laboratory results Abnormal [facility] Specimen Description .BLOOD [facility] Tip Confirmation System (TCS ) and/ or Chest Xray for tip confirmationon 01-25-2022 [facility] [employer] Work Phone: COVID-19, Rapidon 01-24-2022 SARS-CoV-2 (COVID-19) RNA CHARO+probe Ql (Unsp spec) Not detected Not Detected [facility] Comment on above: Rapid NAAT: The specimen [...] management decisions. Fact sheet for Healthcare Providers: https://www.fda.gov/media/014494/download Fact sheet for Patients: https://www.fda.gov/media/773408/download Methodology: Isothermal Nucleic Acid Amplification Specimen Description .NASOPHARYNGEAL SWAB [facility] Catheterization and angiogra phy procedure details panelon 01-24-2022 [facility] Work Phone: POC Glucose Fingerstickon Glucose [Mass/Vol] 97 mg/dL 75 - 110 mg/dL [facility] CBC with Auto Differentialon 01-23-2022 Absolute Eos # 0.13 [facility] th Absolute Immature Granulocyte 0.03 [facility] Absolute Lymph # 1.03 Low [facility] alth Absolute [place]yer # 0.83 [facility] lth Basophils (Bld) [#/Vol] 0.03 10*3/uL [facility] Basophils/100 WBC (Bld) 1 % 0 - 2 % [facility] Eosinophils/100 WBC (Bld) 2 % 1 - 4 % [facility] Hematocrit (Bld) [Volume fraction] 34.1 % Low 40.7 - 50.3 % [facility] Hemoglobin.gastrointesti nal spec 1 Ql (Stl) 11.3 g/dL Low 13.0 - 17.0 g/dL [facility] Immature granulocytes/100 WBC (Bld) 1 % High 0 [facility] Interpretation and review of laboratory results Abnormal [facility] Lymphocytes/100 WBC (Bld) 18 % Low 24 - 43 % [facility] MCH (RBC) [Entitic mass] 27.9 pg 25. 2 - 33.5 pg [facility] MCHC (RBC) [Mass/Vol] 33.1 g/dL 28.4 - 34.8 g/dL [facility] MCV (RBC) [Entitic vol] 84.2 fL 82.6 - 102.9 fL [facility] Monocytes/100 WBC (Bld) 15 % High 3 - 12 % [facility] NRBC Automated 0.0 0.0 per 100 WBC [facility] Platelet distribution width (Bld) [Ratio] 16.1 % High 11.8 - 14.4 % [facility] Platelet mean volume (Bld) [Entitic vol] 9.8 fL 8.1 - 13.5 fL [facility] Platelets (Bld) [#/Vol] 121 10*3/uL Low [facility] RBC (Bld) [#/Vol] 4.05 10*6/uL Low 4.21 - 5.7 7 m/uL [facility] RBC (Bld) [#/Vol] ANISOCYTOSIS PRESENT [facility] Segmented neutrophils/100 WBC (Bld) 63 % 36 - 65 % [facility] Segs Absolute 3.62 [facility] (Bld) [#/Vol] 5.7 10*3/uL [facility] Hepatic Function Panelon Albumin [Mass/Vol] 2.8 g/dL Low 3.5 - 5.2 g/dL [facility] Albumin/Globulin [Mass ratio] 0.6 {ratio} Low [facility] ALP (Bld) [Catalytic activity/Vol] 85 U/L 40 - 129 U/L [facility] ALT [Catalytic activity/Vol] 32 U/L 5 - 41 U/L [facility] AST [Catalytic activity/Vol] 29 U/L <40 [facility] Bilirubin [Mass/Vol] 0.29 mg/dL Low 0.3 - 1 .2 mg/dL [facility] Bilirubin, Indirect 0.2 mg/dL 0.00 - 1 .00 mg/dL [facility] Bilirubin.indirect [Mass/Vol] 0.09 mg/dL <0.31 [facility] Free PSA/Total PSA [Mass fraction] 7.4 g/dL 6.4 - 8.3 g/dL [facility] Interpretation and review of laboratory results Abnormal [facility] MRI ANKLE LEFT W WO CONTRAST on [...] alignment of the joints. No joint effusion. [facility] RIS CONSOLIDATED Addy Turner MD - [...] sprain of the intact anterior talofibular ligament. [facility] Work Phone: Radiology Study observation (narrative) [employer] Work Phone: MRI ANKLE LEFT W WO CONTRAST Ordered By: Addy Turner on 01-23-2022 [facility] Work Phone: POC Glucose Fingerstickon Glucose [Mass/Vol] 122 mg/dL High 75 - 110 mg/dL [facility] Interpretation and review of laboratory results Abnormal [employer] Glucose [Mass/Vol] 99 mg/dL 75 - 110 mg/dL [employer] Glucose [Mass/Vol] 141 mg/dL High 75 - 110 mg/dL [facility] Interpretation and review of laboratory results Abnormal [employer] Renal Function Panelon 01-23 Albumin [Mass/Vol] 2.8 g/dL Low 3.5 - 5.2 g/dL [facility] Anion gap [Moles/Vol] 13 mmol/L 9 - 17 mmol/L [facility] Calcium [Mass/Vol] 8.9 mg/dL 8.6 - 10. 4 mg/dL [facility] Chloride [Moles/Vol] 98 mmol/L 98 - 10 7 mmol/L [facility] CO2 [Moles/Vol] 21 mmol/L 20 - 31 mmol/L [facility] Creatinine [Mass/Vol] 0.68 mg/dL Low 0.70 - 1.20 mg/dL [facility] GFR >60 >60 mL/min studdex GFR Non- >60 >60 mL/min [facility] GFR/1.73 sq M.predicted MDRD (S/P/Bld) [Vol rate/Area] [facility] Comment on above: Average GFR for 40-4 9 years old: 99 mL/min/1.73sq m Chronic Kidney Disease: <60 mL/min/1.73sq m Kidney failure: <15 mL/min/1.73sq m eGFR calculated using average adult body mass. Additional eGFR calculator available at: http://www.Zigabid/multiple_crcl_2012.htm Glucose [Mass/Vol] 148 mg/dL High 70 - 99 mg/dL [facility] Interpretation and review of laboratory results Abnormal [employer] Phosphate [Mass/Vol] 2.7 mg/dL 2.5 - 4 .5 mg/dL [facility] [employer] Potassium [Moles/Vol] 4.2 mmol/L 3.7 - 5.3 mmol/L [facility] [employer] Sodium [Moles/Vol] 132 mmol/L Low 135 - 144 mmol/L [facility] Urea nitrogen (BldV) [Mass/Vol] 14 mg/dL 6 - 20 mg/dL [facility] Vancomycin Level, Randomon 0 01-23-2022 Vancomycin Rm <4.0 ug/mL [facility] Comment on above: Higher trough serum vancomycin concentrations of 15-20 ug/mL are recommended for complicated infections such as bacteremia, endocarditis, osteomyelitis, meningitis, and hospital acquired pneumonia. [employer] [facility] Hemoglobin A1Con 01-22-2022 Glucose [Mass/Vol] 114 mg/dL [facility] Comment on above: The ADA and AACC rec ommend providing the estimated average glucose result to permit better patient understanding of their HBA1c result. HbA1c (Bld) [Mass fraction] 5.6 % 4.0 - 6.0 % [facility] POC Glucose Fingerstickon Glucose [Mass/Vol] 95 mg/dL 75 - 110 mg/dL [facility] Glucose [Mass/Vol] 179 mg/dL High 75 - 110 mg/dL [facility] Interpretation and review of laboratory results Abnormal [facility] Glucose [Mass/Vol] 104 mg/dL 75 - 110 mg/dL [facility] Basic Metabolic Panel w/ Ref rebecca to MGon 01-21-2022 Anion gap [Moles/Vol] 14 mmol/L 9 - 17 mmol/L [facility] [employer] Calcium [Mass/Vol] 8.6 mg/dL 8.6 - 10. 4 mg/dL [facility] Chloride [Moles/Vol] 106 mmol/L 98 - 10 7 mmol/L [facility] CO2 [Moles/Vol] 20 mmol/L 20 - 31 mmol/L [facility] Creatinine [Mass/Vol] 0.73 mg/dL 0.70 - 1.20 mg/dL [facility] GFR >60 >60 mL/min [facility] GFR Non- >60 >60 mL/min [facility] GFR/1.73 sq M.predicted MDRD (S/P/Bld) [Vol rate/Area] [facility] Comment on above: Average GFR for 40-4 9 years old: 99 mL/min/1.73sq m Chronic Kidney Disease: <60 mL/min/1.73sq m Kidney failure: <15 mL/min/1.73sq m eGFR calculated using average adult body mass. Additional eGFR calculator available at: http://www.Zigabid/multiple_crcl_2011.htm Glucose [Mass/Vol] 288 mg/dL High 70 - 99 mg/dL [facility] Interpretation and review of laboratory results Abnormal [facility] Potassium [Moles/Vol] 3.9 mmol/L 3.7 - 5.3 mmol/L [facility] Sodium [Moles/Vol] 140 mmol/L 135 - 144 mmol/L [facility] Urea nitrogen (BldV) [Mass/Vol] 17 mg/dL 6 - 20 mg/dL [facility] C-Reactive Proteinon 022 CRP [Mass/Vol] 51.6 mg/L High 0.0 - 5.0 mg/L [facility] Interpretation and review of laboratory results Abnormal [facility] Lactic Acidon 01-21-2022 Interpretation and review of laboratory results Abnormal [facility] Lactic Acid, Whole Blood 3.3 mmol/L High 0.7 - 2.1 mmol/L [facility] POC Glucose Fingerstickon Glucose [Mass/Vol] 129 mg/dL High 75 - 110 mg/dL [facility] Interpretation and review of laboratory results Abnormal [facility] Procalcitoninon 01-21-2022 Interpretation and review of laboratory results Abnormal [facility] Procalcitonin 11.47 ng/mL High <0.09 [facility] [...] entered into the Change in Procalcitonin Calculator (www.sbljfq-xkv-tymfntschm.Minka) to determine the patient's Mortality Risk Prognosis In healthy neonates, plasma Procalcitonin (PCT) concentrations increase gradually after , reaching peak values at about 24 hours of age then decrease to normal values below 0.5 ng/mL by 48-72 hours of age. [facility] Protime-INRon 01-21-2022 INR Coag (Bld) [Relative time] 1.0 {INR} [facility] Comment on above: Therapeutic Range: Moderate Anticoagulant Intensity: INR = 2.0-3.0 High Anticoagulant Intensity: INR = 2.5-3.5 PT Coag (PPP) [Time] 11 s [facility] Sedimentation Rateon 022 Interpretation and review of laboratory results Abnormal [facility] Sed Rate 58 mm High 0 - 15 mm [facility] XR CALCANEUS LEFT (MIN 2 VIE WS)on 01-21-2022 1. Soft tissue swelling along the heel of the left foot. No evidence of osteomyelitis. [facility] EXAMINATION: 3 XRAY VIEWS OF THE LEFT CALCANEUS 01/21/2022 5:51 am COMPARISON: 01/10/2022 HISTORY: ORDERING SYSTEM PROVIDED HISTORY: Wound TECHNOLOGIST PROVIDED HISTORY: Wound Reason for Exam: pain FINDINGS: There are areas of edema noted along the left heel. There is no bone erosion or periosteal reaction. No fracture. No retained radiopaque foreign body. [facility] Jefe Bassett MD - [...] the left foot. No evidence of osteomyelitis. [facility] [employer] Work Phone: Radiology Study observation (narrative) [facility] Work Phone: XR CALCANEUS LEFT (MIN 2 VIE WS)Ordered By: Jefe Bassett on 01-21-2022 [facility] Work Phone: Brain Natri. Peptideon 01-20 Natriuretic peptide B (Bld) [Mass/Vol] 93 pg/mL Normal <300 [facility] Comment on above: Result Comment: An age-independent cutoff point of 300 pg/ml has a 98% negative predictive value excluding acute heart failure. Performed By: #### C P, CDP #### [facility] [address] [place] [address] [place] [address] [employer] Automatic: Joelle Parker MD CBC with Diffon 01-20-2022 Abs. Basophil 0.00 k/uL Normal 0.0-0.2 [facility] Comment on above: Performed By: #### C P, CDP #### [facility] [address] [place] [address] [place] [address] [employer] Automatic: Joelle Parker MD Abs.Imm.Granulocyte 0.00 k/uL Normal 0.00-0.30 [facility] Comment on above: Performed By: #### C P, CDP #### [address] [place] [address] [employer] Automatic: Joelle Parker MD Abs.Neutrophil (Seg) 9.64 k/uL High 1.50-8.10 [facility] Comment on above: Performed By: #### C P, CDP #### [facility] [address] [place], [place] [id number] [employer]: Joelle Parker MD Basophils/100 WBC (Bld) 0 % Normal 0-[address] [facility] Comment on above: Performed By: #### C P, CDP #### [facility] [address] [place], [facility] [employer] Automatic: Joelle Parker MD Eosinophils (Bld) [#/Vol] 0.21 10*3/uL Normal 0.00-0.44 [facility] Comment on above: Performed By: #### C P, CDP #### [facility] [address] [place], [facility] [employer] Automatic: Joelle Parker MD Eosinophils/100 WBC (Bld) 2 % Normal 1-4 [facility] Comment on above: Performed By: #### C P, CDP #### [facility] [address] [place] [address] Dr. [place], [facility] [employer] Automatic: Joelle Parker MD Immature granulocytes/100 WBC (Bld) 0 % Normal 0 [facility] Comment on above: Performed By: #### C P, CDP #### [address] [place], [facility] [employer] Automatic: Joelle Parker MD Lymphocytes (Bld) [#/Vol] 0.64 10*3/uL Low 1.10-3.70 [facility] Comment on above: Performed By: #### C P, CDP #### [facility] [address] [place], [facility] [employer] Automatic: Joelle Parker MD Lymphocytes/100 WBC (Bld) 6 % Low 24-43 [facility] Comment on above: Performed By: #### C P, CDP #### [facility] [address] [place], [facility] [employer] Automatic: Joelle Parker MD Monocytes (Bld) [#/Vol] 0.11 10*3/uL Normal 0.10-1.20 [facility] Comment on above: Performed By: #### C P, CDP #### [facility] [address] [place] [address] Dr[address] [place], [place] [id number] [employer]: Joelle Parker MD Monocytes/100 WBC (Bld) 1 % Low 3-[address] [facility] Comment on above: Performed By: #### C P, CDP #### [address] [place] [address] [employer] Automatic: Joelle Parker MD Morphology Adis (Bld) [Interp] ANISOCYTOSIS Normal [facility] Comment on above: Result Comment: PRES ENT Performed By: #### C P, CDP #### [address] [place], [facility]83 [employer] Automatic: Joelle Parker MD Neutrophil (Seg) 91 % High 36-65 [facility] Comment on above: Performed By: #### C P, CDP #### [address] [place] [address] [employer] Automatic: Joelle Parker MD Erythrocyte distribution width (RBC) [Ratio] 16.4 % High 11.8-14.4 [facility] Comment on above: Performed By: #### C P, CDP #### [address] [place] [address] [employer] Automatic: Joelle Parker MD Hematocrit (Bld) [Volume fraction] 35.3 % Low 40.7-50.3 [facility] Comment on above: Performed By: #### C P, CDP #### [address] [place], [place] [id number] [employer]: Joelle Parker MD Hemoglobin (Bld) [Mass/Vol] 11.1 g/dL Low 13.0-17.0 [facility] Comment on above: Performed By: #### C P, CDP #### [facility] [address] [place] [address] [employer] Automatic: Joelle Parker MD MCH (RBC) [Entitic mass] 27.5 pg Normal 25.2-33.5 [facility] Comment on above: Performed By: #### C P, CDP #### [address] [place], [facility]83 [employer] Automatic: Joelle Parker MD MCHC (RBC) [Mass/Vol] 31.4 g/dL Normal 28.4-34.8 [facility] Comment on above: Performed By: #### C P, CDP #### [address] [place], [place] [id number] [employer] Automatic: Joelle Parker MD MCV (RBC) [Entitic vol] 87.6 fL Normal 82.6-102.[address] [facility] Comment on above: Performed By: #### C P, CDP #### [address] [place], [place] [id number] [employer] Automatic: Joelle Parker MD NRBC Automated 0.0 per 100 WBC Normal 0.0 [facility] Comment on above: Performed By: #### C P, CDP #### [address] [place], [place] [address] [employer] Automatic: Joelle Parker MD Platelet mean volume (Bld) [Entitic vol] 8.7 fL Normal 8.1-13.5 [facility] Comment on above: Performed By: #### C P, CDP #### [address] [place] [address] [employer] Automatic: Joelle Parker MD Platelets (Bld) [#/Vol] 130 10*3/uL Low 138-453 [facility] Comment on above: Performed By: #### C P, CDP #### [address] [place], [place] [id number] [employer] Automatic: Joelle Parker MD RBC (Bld) [#/Vol] 4.03 10*6/uL Low 4.21-5.77 [facility] Comment on above: Performed By: #### C P, CDP #### [facility] [address] [place], [place] [id number] [employer] Automatic: Joelle Parker MD WBC (Bld) [#/Vol] 10.6 10*3/uL Normal 3.5-11.3 [facility] Comment on above: Performed By: #### C P, CDP #### [facility] [address] [place], [place] [address]83 [employer] Automatic: Joelle Parker MD CT CHEST PULMONARY EMBOLISM [...] Amilcar Fang MD 01/20/22 Final result Normal [facility] Comp Metabolic Pr/rfx MGon 0 01-20-2022 (cont.) Normal [facility] Comment on above: Result Comment: Aver age GFR for 40-49 years old: 99 mL/min/1.73sq m Chronic Kidney Disease: <60 mL/min/1.73sq m Kidney failure: <15 mL/min/1.73sq m eGFR calculated using average adult body mass. Additional eGFR calculator available at: http://www.Zigab[employer]/multiple_crcl_2012.htm Performed By: #### C P, CDP #### [facility] [address] [place] [address] [place] [address] [employer] Automatic: Joelle Parker MD Albumin [Mass/Vol] 3.3 g/dL Low 3.5-5.2 [facility] Comment on above: Performed By: #### C P, CDP #### [address] [place] [address] [employer] Automatic: Joelle Parker MD Albumin/Glob Ratio 0.7 Low 1.0-2.5 [facility] Comment on above: Performed By: #### C P, CDP #### [facility] [address] [place] [address] [employer] Automatic: Joelle Parker MD Alkaline Phos 113 U/L Normal 40-129 [facility] Comment on above: Performed By: #### C P, CDP #### [facility] [address] [place] [address] [employer] Automatic: Joelle Parker MD ALT [Catalytic activity/Vol] 21 U/L Normal 5-41 [facility] Comment on above: Performed By: #### C P, CDP #### [facility] [address] [place], [place] [phone] [employer] Automatic: Joelle Parker MD Anion gap [Moles/Vol] 7 mmol/L Low 9-17 [facility] Comment on above: Performed By: #### C P, CDP #### [facility] [address] [place], [place] [phone] [employer]: Joelle Parker MD AST [Catalytic activity/Vol] 18 U/L Normal <40 [facility] Comment on above: Performed By: #### C P, CDP #### [facility] [address] [place], [place] [id number] [employer]: Joelle Parker MD Bilirubin [Mass/Vol] 0.55 mg/dL Normal 0.3-1.2 [facility] Comment on above: Performed By: #### C P, CDP #### [facility] [address] [place], [place] [id number] [employer] Automatic: Joelle Parker MD BUN/CRE Ratio 24 High 9-20 [facility] Comment on above: Performed By: #### C P, CDP #### [facility] [address] [place], [place] [id number] [employer]: Joelle Parker MD Calcium [Mass/Vol] 9.1 mg/dL Normal 8.6-10.4 [facility] Comment on above: Performed By: #### C P, CDP #### [facility] [address] [place], [place] [id number] [employer]: Joelle Parker MD Chloride [Moles/Vol] 99 mmol/L Normal 98-107 [facility] Comment on above: Performed By: #### C P, CDP #### [facility] [address] [place], [place] [id number] [employer]: Joelle Parker MD CO2 [Moles/Vol] 27 mmol/L Normal 20-31 [facility] Comment on above: Performed By: #### C P, CDP #### [facility] [address] [place] [address] [employer] Automatic: Joelle Parker MD Creatinine [Mass/Vol] 0.70 mg/dL Normal 0.70-1.20 [facility] Comment on above: Performed By: #### C P, CDP #### [facility] [address] [place], [place] [phone] [employer]: Joelle Parker MD GFR, Amer >60 Normal >60 [facility] Comment on above: Performed By: #### C P, CDP #### [facility] [address] [place], [place] [phone] [employer]: Joelle Parker MD GFR,non Amer >60 Normal >60 [facility] Comment on above: Performed By: #### C P, CDP #### [facility] [address] [place] [address] Dr. [place], [place] 9[address]3783 [employer]: Joelle Parker MD Glucose [Mass/Vol] 104 mg/dL High 70-99 [facility] Comment on above: Performed By: #### C P, CDP #### [facility] [address] [place], [place] [phone] [employer] Automatic: Joelle Parker MD Potassium [Moles/Vol] 4.3 mmol/L Normal 3.7-5.3 [facility] Comment on above: Performed By: #### C P, CDP #### [facility] [address] [place], [place] [phone] [employer] Automatic: Joelle Parker MD Protein [Mass/Vol] 8.3 g/dL Normal 6.4-8.3 [facility] Comment on above: Performed By: #### C P, CDP #### [facility] [address] [place] [address] [place] [address] [employer] Automatic: Joelle Parker MD Sodium [Moles/Vol] 133 mmol/L Low 135-144 [facility] Comment on above: Performed By: #### C P, CDP #### [facility] [address] [place] [address] Dr[address] [place], [place] 9446983 [employer] Automatic: Joelle Parker MD Staging: Normal [facility] Comment on above: Result Comment: Stag e 1: Some kidney damage normal GFR Stage 2: Mild kidney damage GFR 60-89 Stage 3: Moderate kidney damage GFR 30-59 Stage 4: Severe kidney damage GFR 15-29 Stage 5: Severe kidney damage GFR <15 ESRD - chronic treatment by dialysis or transplant Performed By: #### C P, CDP #### [address] [place], [place] [id number] [employer]: Joelle Parker MD Urea nitrogen [Mass/Vol] 17 mg/dL Normal 6-20 [facility] Comment on above: Performed By: #### C P, CDP #### [address] [place] [address] [employer] Automatic: Joelle Parker MD D-Dimer Teston 01-20-2022 D-Dimer Test 2.69 mg/L FEU High 0.00-0.59 [facility] Comment on above: Result Comment: When combined [...] DVT. Performed By: #### D YFN #### [facility] [address] [place] [address] [employer]: Joelle Parker MD Flu A/B Ag Detectionon 01-20 Flu A/B Ag Detection Specimen Descriptio n .NASOPHARYNGEAL SWAB Direct Exam NEGATIVE for Influenza A + B antigens. PCR testing to confirm this result is available upon request. Specimen will be saved in the laboratory for 7 days. Please call [phone] if PCR testing is indicated. Report Status FINAL 01/20/2022 Normal [facility] Comment on above: Performed By: #### C P, CDP #### [facility] [address] [place] [address] [employer] Automatic: Joelle Parker MD LACTIC ACID, WHOLE BLOODon 0 01-20-2022 Interpretation and review of laboratory results Abnormal [facility] Lactic Acid, Whole Blood 2.5 mmol/L High 0.7 - 2.1 mmol/L [facility] Laboratory - Chemistry and C hemistry - challengeon 01-20-2022 Hemoglobin.gastrointesti nal spec 1 Ql (Stl) 11.1 g/dL Low 13.0 - 17.0 g/dL [facility] Albumin [Mass/Vol] 3.3 g/dL Low 3.5 - 5.2 g/dL [facility] Albumin/Globulin [Mass ratio] 0.7 {ratio} Low [facility] ALP (Bld) [Catalytic activity/Vol] 113 U/L 40 - 129 U/L [facility] ALT [Catalytic activity/Vol] 21 U/L 5 - 41 U/L [facility] Anion gap [Moles/Vol] 7 mmol/L Low 9 - 17 mmol/L [facility] AST [Catalytic activity/Vol] 18 U/L <40 [facility] Bilirubin [Mass/Vol] 0.55 mg/dL 0.3 - 1 .2 mg/dL [facility] [employer] Calcium [Mass/Vol] 9.1 mg/dL 8.6 - 10. 4 mg/dL [facility] [employer] Chloride [Moles/Vol] 99 mmol/L 98 - 10 7 mmol/L [facility] [employer] CO2 [Moles/Vol] 27 mmol/L 20 - 31 mmol/L [facility] [employer] Creatinine [Mass/Vol] 0.7 mg/dL 0.70 - 1.20 mg/dL [facility] [employer] Free PSA/Total PSA [Mass fraction] 8.3 g/dL 6.4 - 8.3 g/dL [facility] GFR/1.73 sq M.predicted MDRD (S/P/Bld) [Vol rate/Area] [facility] Comment on above: Average GFR for 40-4 9 years old: 99 mL/min/1.73sq m Chronic Kidney Disease: <60 mL/min/1.73sq m Kidney failure: <15 mL/min/1.73sq m eGFR calculated using average adult body mass. Additional eGFR calculator available at: http://www.Zig[employer]/multiple_crcl_2012.htm Stage 1: Some kidney damage normal GFR Stage 2: Mild kidney damage GFR 60-89 Stage 3: Moderate kidney damage GFR 30-59 Stage 4: Severe kidney damage GFR 15-29 Stage 5: Severe kidney damage GFR <15 ESRD - chronic treatment by dialysis or transplant Glucose [Mass/Vol] 104 mg/dL High 70 - 99 mg/dL [facility] Natriuretic peptide B (Bld) [Mass/Vol] 93 pg/mL <300 [facility] Comment on above: An age-independent cutoff point of 300 pg/ml has a 98% negative predictive value excluding acute heart failure. Potassium [Moles/Vol] 4.3 mmol/L 3.7 - 5.3 mmol/L [facility] Sodium [Moles/Vol] 133 mmol/L Low 135 - 144 mmol/L [facility] Urea nitrogen (BldV) [Mass/Vol] 17 mg/dL 6 - 20 mg/dL [facility] Urea nitrogen/Creatinine (Bld) [Mass ratio] 24 High [facility] Ketones Ql (U) Negative NEGATIVE [facility] th Laboratory - Hematology and Cell countson 01-20-2022 Basophils (Bld) [#/Vol] 0.00 10*3/uL [facility] Basophils/100 WBC (Bld) 0 % 0 - 2 % [facility] Eosinophils/100 WBC (Bld) 2 % 1 - 4 % [facility] Hematocrit (Bld) [Volume fraction] 35.3 % Low 40.7 - 50.3 % [facility] Immature granulocytes/100 WBC (Bld) 0 % 0 [facility] Lymphocytes/100 WBC (Bld) 6 % Low 24 - 43 % [facility] MCH (RBC) [Entitic mass] 27.5 pg 25. 2 - 33.5 pg [facility] MCHC (RBC) [Mass/Vol] 31.4 g/dL 28.4 - 34.8 g/dL [facility] MCV (RBC) [Entitic vol] 87.6 fL 82.6 - 102.9 fL [facility] Monocytes/100 WBC (Bld) 1 % Low 3 - 12 % [facility] Morphology Adis (Bld) [Interp] ANISOCYTOSIS PRESENT [facility] Platelet distribution width (Bld) [Ratio] 16.4 % High 11.8 - 14.4 % [facility] Platelet mean volume (Bld) [Entitic vol] 8.7 fL 8.1 - 13.5 fL [facility] Platelets (Bld) [#/Vol] 130 10*3/uL Low [facility] RBC (Bld) [#/Vol] 4.03 10*6/uL Low 4.21 - 5.7 7 m/uL [facility] Segmented neutrophils/100 WBC (Bld) 91 % High 36 - 65 % [facility] WBC (Bld) [#/Vol] 10.6 10*3/uL [facility] Laboratory - Microbiology an d Antimicrobial susceptibilityon 01-20-2022 SARS-CoV-2 (COVID-19) RNA CHARO+probe Ql (Unsp spec) Not detected Not Detected [facility] Comment on above: Rapid NAAT: The specimen [...] management decisions. Fact sheet for Healthcare Providers: https://www.fda.gov/media/124688/download Fact sheet for Patients: https://www.fda.gov/media/688357/download Methodology: Isothermal Nucleic Acid Amplification Laboratory - Urinalysison Leukocyte esterase Test strip Ql (U) Negative NEGATIVE [facility] Lactate, Sepsison 01-20-2022 Lactic Acid, Sepsis 2.6 mmol/L High 0.5-1.9 [facility] Comment on above: Performed By: #### C P, CDP #### [address] [place] [address] [employer]: Joelle Parker MD Lactic Acid, Sepsis 1.7 mmol/L Normal 0.5-1.9 [facility] Comment on above: Performed By: #### A LCB #### [address] [place] [address] [employer] Automatic: Joelle Parker MD Lactic Acid, Sepsis 1.3 mmol/L Normal 0.5-1.9 [facility] Comment on above: Performed By: #### C P, CDP #### [address] [place] [id number] [employer] Automatic: Joelle Parker MD Lactic Acid, Sepsis 1.9 mmol/L Normal 0.5-1.9 [facility] Comment on above: Performed By: #### C P, CDP #### [address] [place] [address] [employer] Automatic: Joelle Parker MD No Panel Informationon 01-20 Interpretation and review of laboratory results Abnormal [facility] Lactic Acid, Sepsis 2.6 mmol/L High 0.5 - 1. 9 mmol/L [facility] No evidence of pulmonary embolism or acute thoracic aortic abnormality. Improving aeration. Scattered airspace opacities are present throughout the lungs bilaterally to a mild degree, overall improved from prior, possibly representing residual pneumonia. [facility] EXAMINATION: CTA OF THE [...] Abdomen: The visualized upper abdomen is unremarkable. [facility] Amilcar Fang MD - [...] improved from prior, possibly representing residual pneumonia. [employer] Work Phone: Radiology Study observation (narrative) [employer] [facility] Work Phone: D-Dimer, Quant 2.69 High [facility] Comment on above: When combined with [...] Interpretation and review of laboratory results Abnormal [facility] Poor data quality, interpretation may be adversely affected Sinus tachycardia Otherwise normal ECG When compared with ECG of 10-JAN-2022 20:20, No significant change was found Confirmed by Valery Canela MD ([id number]) on 01/20/2022 6:02:54 PM [facility] RADIOLOG[facility] Valery Canela MD - 01/20/2022 Poor data quality, interpretation may be adversely affected Sinus tachycardia Otherwise normal ECG When compared with ECG of 10-JAN-2022 20:20, No significant change was found Confirmed by Valery Canela MD ([id number]) on 01/20/2022 6:02:54 PM [facility] Work Phone: Lactic Acid, Sepsis 1.7 mmol/L 0.5 - 1. 9 mmol/L [facility] Lactic Acid, Sepsis 1.3 mmol/L 0.5 - 1. 9 mmol/L [facility] Absolute Eos # 0.21 [facility] th Absolute Immature Granulocyte 0.00 [facility] Absolute Lymph # 0.64 Low [facility] alth Absolute Dyer # [facility].11 [facility] Interpretation and review of laboratory results Abnormal [facility] NRBC Automated 0.0 0.0 per 100 WBC [facility] Segs Absolute 9.64 [facility] GFR >60 >60 mL/min [facility] GFR Non- >60 >60 mL/min [facility] Interpretation and review of laboratory results Abnormal [facility] Troponin, High Sensitivity <6 0 - 22 ng/L [facility] Comment on above: High Sensitivity Troponin values cannot be compared with other Troponin methodologies. Patients with high levels of Biotin oral intake (i.e >5mg/day) may have falsely decreased Troponin levels. Samples collected within 8 hours of biotin intake may require additional information for diagnosis. [facility] - [facility] Bacteria, UA 1+ Abnormal None [facility] [employer] Epithelial Cells UA 0 TO 2 [facility] Interpretation and review of laboratory results Abnormal [facility] Mucus, UA 1+ Abnormal None [facility] RBC, UA 50 TO 100 [facility] WBC, UA None [facility] Bilirubin Urine Negative [facility]IVE [facility] Color, UA Yellow Yellow [facility] Glucose, Ur Negative NEGATIVE [facility] Interpretation and review of laboratory results Abnormal [facility] Nitrite, Urine Negative NEGATIVE [facility] th pH, UA 7.5 [facility] Protein, UA Negative NEGATIVE [facility] Specific [place], UA 1.025 High [facility] Turbidity UA Clear Clear [facility] Urine Hgb 3+ Abnormal NEGATIVE [facility] Urobilinogen, Urine Normal Normal [facility] Lactic Acid, Sepsis 1.9 mmol/L 0.5 - 1. 9 mmol/L [facility] Direct Exam NEGATIVE for Influenza A + B antigens. PCR testing to confirm this result is available upon request. Specimen will be saved in the laboratory for 7 days. Please call [phone] if PCR testing is indicated. [facility] Specimen Description .NASOPHARYNGEAL SWAB [facility] Specimen Description .NASOPHARYNGEAL SWAB [facility] Diffuse interstitial opacities may represent mild edema or atypical infection. [facility] RIS CONSOLIDATED EXAMINATION: ONE XRAY VIEW [...] pneumothorax identified. Osseous structures are grossly unchanged. [facility] RIS CONSOLIDATED Miky Campbell DO - [...] may represent mild edema or atypical infection. [employer] Work Phone: Radiology Study observation (narrative) [employer] Work Phone: No Panel InformationOrdered By: Amilcar Fang on 01-20-2022 [employer] Phone: No Panel InformationOrdered By: Valery Canela on 01-20-2022 Atrial Rate 133 BPM [employer] Work Phone: P [place] 54 degrees [employer] Work Phone: P-R Interval 122 ms [employer] Work Phone: Q-T Interval 288 ms [employer] Work Phone: QRS Duration 76 ms [employer] Work Phone: QTc Calculation (Bazett) 428 ms [employer] Work Phone: R [place] 78 degrees [employer] Work Phone: T [place] 61 degrees [employer] Work Phone: Ventricular Rate 133 BPM [employer] Work Phone: [employer] Work Phone: No Panel InformationOrdered By: Miky Campbell on 01-20-2022 [employer] Phone: [id number] 01-20-2022 SARS-CoV-2 (COVID-19) RNA CHARO+probe Ql (Unsp spec) Not detected Normal [facility] Comment on above: Result Comment: Rapid NAAT: [...] management decisions. Fact sheet for Healthcare Providers: https://www.fda.gov/media/027560/download Fact sheet for Patients: https://www.fda.gov/media/138192/download Methodology: Isothermal Nucleic Acid Amplification Performed By: #### C OVRB #### [facility] [address] [place] [address] [place] [address] [employer] Automatic: Joelle Parker MD Troponinon 01-20-2022 Troponin, High Sens <6 Normal 0-22 [facility] Comment on above: Result Comment: High Sensitivity Troponin values cannot be compared with other Troponin methodologies. Patients with high levels of Biotin oral intake (i.e >5mg/day) may have falsely decreased Troponin levels. Samples collected within 8 hours of biotin intake may require additional information for diagnosis. Performed By: #### C P, CDP #### [facility] [address] [place] [address] [place] [place], [place] [id number] [employer]: Joelle Parker MD Urinalysis, Routineon 2021 Bilirubin, SemiQt,Ur Negative Normal NEG [facility] Comment on above: Performed By: #### C P, CDP #### [address] [place], [place] [id number] [employer] Automatic: Joelle Parker MD Blood, Urine 3+ Abnormal NEG [facility] Comment on above: Performed By: #### C P, CDP #### [facility] [address] [place] [address] [place] [address] [employer] Automatic: Joelle Parker MD Clarity (U) Clear Normal CLEAR [facility] Comment on above: Performed By: #### C P, CDP #### [address] [place] [address] [employer] Automatic: Joelle Parker MD Color (U) Yellow Normal YEL [facility] Comment on above: Performed By: #### C P, CDP #### [facility] [address] [place] [address] [place] [address] [employer] Automatic: Joelle Parker MD Glucose Ql (U) Negative Normal NEG [facility] in Hospital Comment on above: Performed By: #### C P, CDP #### [address] [place], [facility] [employer] Automatic: Joelle Parker MD Ketones Ql (U) Negative Normal NEG [facility] Comment on above: Performed By: #### C P, CDP #### [address] [place], [place] [address] [employer] Automatic: Joelle Parker MD Leukocyte esterase Test strip Ql (U) Negative Normal NEG [facility] Comment on above: Performed By: #### C P, CDP #### [address] [place], [place] [address] [employer] Automatic: Joelle Parker MD Nitrite,Ur Negative Normal [facility] Comment on above: Performed By: #### C P, CDP #### [address] [place], [facility] [employer] Automatic: Joelle Parker MD PH,Ur 7.5 Normal 5.0-9.0 [facility] Comment on above: Performed By: #### C P, CDP #### [address] [place], [facility] [employer] Automatic: Joelle Parker MD Protein Ql (U) Negative Normal NEG [facility] Comment on above: Performed By: #### C P, CDP #### [address] [place], [facility] [employer] Automatic: Joelle Parker MD Spec. [place],Ur 1.025 High 1.010-1.020 [facility] Comment on above: Performed By: #### C P, CDP #### [facility] [address] [place], [place] [id number] [employer]: Joelle Parker MD Urobilinogen,Ur Normal Normal NORM [facility] Comment on above: Performed By: #### C P, CDP #### [facility] [address] [place], [facility] [employer] Automatic: Joelle Parker MD Urinalysis,Microon 2 ----- Normal [facility] Comment on above: Performed By: #### C P, CDP #### [facility] [address] [place], [facility] [employer] Automatic: Joelle Parker MD Bacteria 1+ Abnormal NONE [facility] Comment on above: Performed By: #### C P, CDP #### [facility] [address] [place], [facility] [employer]: Joelle Parker MD Epithelial cells LM Ql (Urine sed) 0 TO 2 Normal 0-5 [facility] Comment on above: Performed By: #### C P, CDP #### [facility] [address] [place], [facility] [employer] Automatic: Joelle Parker MD Mucus Strands 1+ Abnormal NONE [facility] Comment on above: Performed By: #### C P, CDP #### [facility] [address] [place], [facility] [employer]: Joelle Parker MD Urine RBC's 50 TO 100 Normal 0-2 [facility] Comment on above: Performed By: #### C P, CDP #### [facility] [address] [place] [address] [employer] Automatic: Joelle Parker MD Urine WBC's None Normal 0-5 [facility] Comment on above: Performed By: #### C P, CDP #### [facility] [address] [place] [address] [employer]: Joelle Parker MD XR CHEST PORTABLEon 01-21-20 [...] Miky Campbell DO 01/20/22 Final result Normal [facility] Acetaminophenon 01-10-2022 Acetaminophen [Mass/Vol] ug/mL Low 10-30 [facility] Comment on above: Performed By: #### A LCB #### [facility] [address] [place], [place] [id number] [employer]: Joelle Parker MD Acetaminophen Levelon 2021 Acetaminophen Level <5 Low 10 - 30 ug/mL [facility] Interpretation and review of laboratory results Abnormal [facility] CBC with Auto Differentialon 01-10-2022 Absolute Eos # 0.19 [facility] th Absolute Immature Granulocyte 0.09 [facility] Absolute Lymph # 0.97 Low [facility] Absolute [place] # 0.66 [facility] Basophils (Bld) [#/Vol] 0.03 10*3/uL [facility] Basophils/100 WBC (Bld) 0 % 0 - 2 % [facility] Eosinophils/100 WBC (Bld) 2 % 1 - 4 % [facility] Hematocrit (Bld) [Volume fraction] 28.4 % Low 40.7 - 50.3 % [facility] Hemoglobin.gastrointesti nal spec 1 Ql (Stl) 8.8 g/dL Low 13.0 - 17.0 g/dL [facility] Immature granulocytes/100 WBC (Bld) 1 % High 0 [facility] Interpretation and review of laboratory results Abnormal [facility] Lymphocytes/100 WBC (Bld) 11 % Low 24 - 43 % [facility] MCH (RBC) [Entitic mass] 27.7 pg 25. 2 - 33.5 pg [facility] MCHC (RBC) [Mass/Vol] 31.0 g/dL 28.4 - 34.8 g/dL [facility] MCV (RBC) [Entitic vol] 89.3 fL 82.6 - 102.9 fL [facility] Monocytes/100 WBC (Bld) 8 % 3 - 12 % [facility] NRBC Automated 0.0 0.0 per 100 WBC [facility] Platelet distribution width (Bld) [Ratio] 14.3 % 11.8 - 14.4 % [facility] Platelet mean volume (Bld) [Entitic vol] 9.5 fL 8.1 - 13.5 fL [facility] Platelets (Bld) [#/Vol] 305 10*3/uL [facility] RBC (Bld) [#/Vol] 3.18 10*6/uL Low 4.21 - 5.7 7 m/uL [facility] Segmented neutrophils/100 WBC (Bld) 78 % High 36 - 65 % [facility] Segs Absolute 6.79 [facility] h WBC (Bld) [#/Vol] 8.7 10*3/uL [facility] CBC with Diffon 01-10-2022 Abs. Basophil 0.03 k/uL Normal 0.00-0.20 [facility] Comment on above: Performed By: #### A LCB #### [facility] [address] [place] [address] [place] [address] [employer] Automatic: Joelle Parker MD Abs.Imm.Granulocyte 0.09 k/uL Normal 0.00-0.30 [facility] Comment on above: Performed By: #### A LCB #### [facility] [address] [address] [employer] Automatic: Joelle Parker MD Abs.Neutrophil (Seg) 6.79 k/uL Normal 1.50-8.10 [facility] Comment on above: Performed By: #### A LCB #### [facility] [address] [place] 6[address]83 [employer]: Joelle Parker MD Basophils/100 WBC (Bld) 0 % Normal 0-2 [facility] Comment on above: Performed By: #### A LCB #### [facility] [address] [place], [place] 9[address]83 [employer]: Joelle Parker MD Eosinophils (Bld) [#/Vol] 0.19 10*3/uL Normal 0.00-0.44 [facility] Comment on above: Performed By: #### A LCB #### [facility] [address] [place] [id number] [employer]: Joelle Parker MD Eosinophils/100 WBC (Bld) 2 % Normal 1-4 [facility] Comment on above: Performed By: #### A LCB #### [address] [place], [place] [id number] [employer]: Joelle Parker MD Erythrocyte distribution width (RBC) [Ratio] 14.3 % Normal 11.8-14.4 [facility] Comment on above: Performed By: #### A LCB #### [address] [place], [place] 3883183 [employer] Automatic: Joelle Parker MD Hematocrit (Bld) [Volume fraction] 28.4 % Low 40.7-50.3 [facility] Comment on above: Performed By: #### A LCB #### [address] [place], [place] 4702183 [employer]: Joelle Parker MD Hemoglobin (Bld) [Mass/Vol] 8.8 g/dL Low 13.0-17.0 [facility] Comment on above: Performed By: #### A LCB #### [address] [place] [address] [employer] Automatic: Joelle Parker MD Immature granulocytes/100 WBC (Bld) 1 % High 0 [facility] Comment on above: Performed By: #### A LCB #### [facility] [address] [place] [address] [employer] Automatic: Joelle Parker MD Lymphocytes (Bld) [#/Vol] 0.97 10*3/uL Low 1.10-3.70 [facility] Comment on above: Performed By: #### A LCB #### [facility] [address] [place] [address] [employer] Automatic: Joelle Parker MD Lymphocytes/100 WBC (Bld) 11 % Low 24-43 [facility] Comment on above: Performed By: #### A LCB #### [facility] [address] [place] [address] [employer] Automatic: Joelle Parker MD MCH (RBC) [Entitic mass] 27.7 pg Normal 25.2-33.5 [facility] Comment on above: Performed By: #### A LCB #### [address] [place] [address] [employer] Automatic: Joelle Parker MD MCHC (RBC) [Mass/Vol] 31.0 g/dL Normal 28.4-34.8 [facility] Comment on above: Performed By: #### A LCB #### [address] [place], [place] [id number] [employer] Automatic: Joelle Parker MD MCV (RBC) [Entitic vol] 89.3 fL Normal 82.6-102.[address] [facility] Comment on above: Performed By: #### A LCB #### [address] [place] [address] [employer] Automatic: Joelle Parker MD Monocytes (Bld) [#/Vol] 0.66 10*3/uL Normal 0.10-1.20 [facility] Comment on above: Performed By: #### A LCB #### [facility] [address] [place], [place] 8564083 [employer]: Joelle Parker MD Monocytes/100 WBC (Bld) 8 % Normal 3-[address] [facility] Comment on above: Performed By: #### A LCB #### [facility] [address] [place], [place] [id number] [employer]: Joelle Parker MD Neutrophil (Seg) 78 % High 36-65 [facility] Comment on above: Performed By: #### A LCB #### [address] [place], [place] [id number] [employer]: Joelle Parker MD NRBC Automated 0.0 per 100 WBC Normal 0.0 [facility] Comment on above: Performed By: #### A LCB #### [address] [place], [facility] [employer] Automatic: Joelle Parker MD Platelet mean volume (Bld) [Entitic vol] 9.5 fL Normal 8.1-13.5 [facility] Comment on above: Performed By: #### A LCB #### [address] [place], [place] 8[address]83 [employer]: Joelle Parker MD Platelets (Bld) [#/Vol] 305 10*3/uL Normal 138-453 [facility] Comment on above: Performed By: #### A LCB #### [facility] [address] [place] [address] Dr[address] [place], [place] [id number] [employer]: Joelle Parker MD RBC (Bld) [#/Vol] 3.18 10*6/uL Low 4.21-5.77 [facility] Comment on above: Performed By: #### A LCB #### [address] [place] [address] [employer] Automatic: Joelle Parker MD WBC (Bld) [#/Vol] 8.7 10*3/uL Normal 3.5-11.3 [facility] Comment on above: Performed By: #### A LCB #### [facility] [address] [place] [address] [employer] Automatic: Joelle Parker MD Comp Metabolic Profon 2021 (cont.) Normal [facility] Comment on above: Result Comment: Aver age GFR for 40-49 years old: 99 mL/min/1.73sq m Chronic Kidney Disease: <60 mL/min/1.73sq m Kidney failure: <15 mL/min/1.73sq m eGFR calculated using average adult body mass. Additional eGFR calculator available at: http://www.[employer]/multiple_crcl_2012.htm Performed By: #### A LCB #### [facility] [address] [place] [address] [employer] Automatic: Joelle Parker MD Albumin [Mass/Vol] 2.7 g/dL Low 3.5-5.2 [facility] Comment on above: Performed By: #### A LCB #### [facility] [address] [place] [address] [employer] Automatic: Joelle Parker MD Albumin/Glob Ratio 0.5 Low 1.0-2.5 [facility] Comment on above: Performed By: #### A LCB #### [facility] [address] [place] [address] [employer] Automatic: Joelle Parker MD Alkaline Phos 138 U/L High 40-129 [facility] Comment on above: Performed By: #### A LCB #### [facility] [address] [place] [address] [employer] Automatic: Joelle Parker MD ALT [Catalytic activity/Vol] 21 U/L Normal 5-41 [facility] Comment on above: Performed By: #### A LCB #### [facility] [address] [place], [place] 908[address]83 [employer] Automatic: Joelle Parker MD Anion gap [Moles/Vol] 8 mmol/L Low 9-17 [facility] Comment on above: Performed By: #### A LCB #### [facility] [address] [place], [place] [id number] [employer] Automatic: Joelle Parker MD AST [Catalytic activity/Vol] 26 U/L Normal <40 [facility] Comment on above: Performed By: #### A LCB #### [facility] [address] [place], [place] 962[address]83 [employer] Automatic: Joelle Parker MD Bilirubin [Mass/Vol] 0.20 mg/dL Low 0.3-1.2 [facility] Comment on above: Performed By: #### A LCB #### [facility] [address] [place], [place] 1218883 [employer] Automatic: Joelle Parker MD BUN/CRE Ratio 16 Normal 9-20 [facility] Comment on above: Performed By: #### A LCB #### [facility] [address] [place], [place] 824[address]83 [employer] Automatic: Joelle Parker MD Calcium [Mass/Vol] 9.0 mg/dL Normal 8.6-10.4 [facility] Comment on above: Performed By: #### A LCB #### [facility] [address] [place], [place] 4292883 [employer] Automatic: Joelle Parker MD Chloride [Moles/Vol] 101 mmol/L Normal 98-107 [facility] Comment on above: Performed By: #### A LCB #### [facility] [address] [place], [place] 37[address]83 [employer] Automatic: Joelle Parker MD CO2 [Moles/Vol] 26 mmol/L Normal 20-31 [facility] Comment on above: Performed By: #### A LCB #### [facility] [address] [place], [place] 235[address]83 [employer] Automatic: Joelle Parker MD Creatinine [Mass/Vol] 0.80 mg/dL Normal 0.70-1.20 [facility] Comment on above: Performed By: #### A LCB #### [facility] [address] [place], [place] 4790883 [employer] Automatic: Joelle Parker MD GFR, Amer >60 Normal >60 [facility] Comment on above: Performed By: #### A LCB #### [facility] [address] [place], [place] 9610283 [employer] Automatic: Joelle Parker MD GFR,non Amer >60 Normal >60 [facility] Comment on above: Performed By: #### A LCB #### [facility] [address] [place], [place] 506[address]83 [employer] Automatic: Joelle Parker MD Glucose [Mass/Vol] 98 mg/dL Normal 70-99 [facility] Comment on above: Performed By: #### A LCB #### [facility] [address] [place], [place] 106[address]83 [employer] Automatic: Joelle Parker MD Potassium [Moles/Vol] 4.2 mmol/L Normal 3.7-5.3 [facility] Comment on above: Performed By: #### A LCB #### [facility] [address] [place], [place] 9684383 [employer] Automatic: Joelle Parker MD Protein [Mass/Vol] 8.1 g/dL Normal 6.4-8.3 [facility] Comment on above: Performed By: #### A LCB #### [facility] [address] [place], [place] 7866283 [employer]: Joelle Parker MD Sodium [Moles/Vol] 135 mmol/L Normal 135-144 [facility] Comment on above: Performed By: #### A LCB #### [facility] [address] [place] [address] [employer] Automatic: Joelle Parker MD Staging: Normal [facility] Comment on above: Result Comment: Stag e 1: Some kidney damage normal GFR Stage 2: Mild kidney damage GFR 60-89 Stage 3: Moderate kidney damage GFR 30-59 Stage 4: Severe kidney damage GFR 15-29 Stage 5: Severe kidney damage GFR <15 ESRD - chronic treatment by dialysis or transplant Performed By: #### A LCB #### [facility] [address] [place] [address] [employer] Automatic: Joelle Parker MD Urea nitrogen [Mass/Vol] 13 mg/dL Normal 6-20 [facility] Comment on above: Performed By: #### A LCB #### [facility] [address] [place] [address] [employer] Automatic: Joelle Parker MD Comprehensive Metabolic Pane [facility] 01-10-2022 Albumin [Mass/Vol] 2.7 g/dL Low 3.5 - 5.2 g/dL [facility] Albumin/Globulin [Mass ratio] 0.5 {ratio} Low [facility] ALP (Bld) [Catalytic activity/Vol] 138 U/L High 40 - 129 U/L [facility] ALT [Catalytic activity/Vol] 21 U/L 5 - 41 U/L [facility] Anion gap [Moles/Vol] 8 mmol/L Low 9 - 17 mmol/L [facility] AST [Catalytic activity/Vol] 26 U/L <40 [facility] Bilirubin [Mass/Vol] 0.20 mg/dL Low 0.3 - 1 .2 mg/dL [facility] Calcium [Mass/Vol] 9.0 mg/dL 8.6 - 10. 4 mg/dL [facility] Chloride [Moles/Vol] 101 mmol/L 98 - 10 7 mmol/L [facility] CO2 [Moles/Vol] 26 mmol/L 20 - 31 mmol/L [facility] Creatinine [Mass/Vol] 0.8 mg/dL 0.70 - 1.20 mg/dL [facility] Free PSA/Total PSA [Mass fraction] 8.1 g/dL 6.4 - 8.3 g/dL [facility] GFR >60 >60 mL/min [facility] GFR Non- >60 >60 mL/min [facility] Glucose [Mass/Vol] 98 mg/dL 70 - 99 mg/dL [facility] Potassium [Moles/Vol] 4.2 mmol/L 3.7 - 5.3 mmol/L [facility] Sodium [Moles/Vol] 135 mmol/L 135 - 144 mmol/L [facility] Urea nitrogen (BldV) [Mass/Vol] 13 mg/dL 6 - 20 mg/dL [facility] Urea nitrogen/Creatinine (Bld) [Mass ratio] 16 [facility] Ethanolon 01-10-2022 Ethanol [Mass/Vol] mg/dL <10 mg/dL [facility] Ethanol percent <0.010 <0.010 % [facility] Ethanol Alcoholon 01-10-2022 Ethanol [Mass/Vol] mg/dL Normal <10 [facility] Comment on above: Performed By: #### A LCB #### [facility] [address] [address] [employer] Automatic: Joelle Parker MD Ethanol percent <0.010 Normal <0.010 [facility] Comment on above: Performed By: #### A LCB #### [facility] [address] [address] [employer] Automatic: Joelle Parker MD Laboratory - Chemistry and C hemistry - challengeon 01-10-2022 GFR/1.73 sq M.predicted MDRD (S/P/Bld) [Vol rate/Area] [facility] Comment on above: Average GFR for 40-4 9 years old: 99 mL/min/1.73sq m Chronic Kidney Disease: <60 mL/min/1.73sq m Kidney failure: <15 mL/min/1.73sq m eGFR calculated using average adult body mass. Additional eGFR calculator available at: http://www.globalrph.Minka/multiple_crcl_2011.htm Stage 1: Some kidney damage normal GFR Stage 2: Mild kidney damage GFR 60-89 Stage 3: Moderate kidney damage GFR 30-59 Stage 4: Severe kidney damage GFR 15-29 Stage 5: Severe kidney damage GFR <15 ESRD - chronic treatment by dialysis or transplant No Panel Informationon 01-10 Interpretation and review of laboratory results Abnormal [facility] Salicylateon 01-10-2022 Salicylate <1 Low 3-10 [facility] Comment on above: Performed By: #### B C #### [facility] [address] [place] [address] Head Sawyer Automatic: Joelle Parker MD Salicylate Lvl <1 Low 3 - 10 mg/dL [facility] XR FOOT LEFT (MIN 3 VIEWS)on 01-10-2022 [...] by: Roscoe Ferrer 01/10/22 Final result Normal [facility] Soft tissue defect over the posterior aspect [...] No underlying bony changes to suggest osteomyelitis. [facility] Roscoe Mcnulty P - 01/10/2022 EXAMINATION: [...] suggest osteomyelitis. Cannot exclude soft tissue infection [employer] Work Phone: Radiology Study observation (narrative) [employer] Work Phone: XR FOOT LEFT (MIN 3 VIEWS)Or dered By: Roscoe Ferrer on 01-10-2022 [facility] Work Phone: Basic Metabolic Panel w/ Ref rebecca to MGon 12-20-2021 Anion gap [Moles/Vol] 8 mmol/L Low 9 - 17 mmol/L [facility] Calcium [Mass/Vol] 7.7 mg/dL Low 8.6 - 10. 4 mg/dL [facility] Chloride [Moles/Vol] 99 mmol/L 98 - 10 7 mmol/L [facility] CO2 [Moles/Vol] 23 mmol/L 20 - 31 mmol/L [facility] Creatinine [Mass/Vol] 0.82 mg/dL 0.70 - 1.20 mg/dL [facility] GFR >60 >60 mL/min studdex GFR Non- >60 >60 mL/min [facility] GFR/1.73 sq M.predicted MDRD (S/P/Bld) [Vol rate/Area] [facility] Comment on above: Average GFR for 30-3 9 years old: 107 mL/min/1.73sq m Chronic Kidney Disease: <60 mL/min/1.73sq m Kidney failure: <15 mL/min/1.73sq m eGFR calculated using average adult body mass. Additional eGFR calculator available at: http://www.Zigabid/multiple_crcl_2012.htm GFR/1.73 sq M.predicted MDRD (S/P/Bld) [Vol rate/Area] NOT REPORTED [facility] Glucose [Mass/Vol] 110 mg/dL High 70 - 99 mg/dL [facility] Interpretation and review of laboratory results Abnormal [facility] Potassium [Moles/Vol] 4.6 mmol/L 3.7 - 5.3 mmol/L [facility] Sodium [Moles/Vol] 130 mmol/L Low 135 - 144 mmol/L [facility] Urea nitrogen (BldV) [Mass/Vol] 15 mg/dL 6 - 20 mg/dL [facility] Urea nitrogen/Creatinine (Bld) [Mass ratio] NOT REPORTED [facility] IR ARTHR/ASP/INJ MAJOR JT/BU RSA RIGHT WO USon 12-20-2021 Successful fluoroscopic-guided right shoulder aspiration. [facility] RIS CONSOLIDATED EXAMINATION: Fluoroscopic guided right [...] minutes DAP 2 cGy cm 2 PROCEDURE: GLAZIER ARTIST: Everett Ga This procedure was performed by Everett Ga PA-C under indirect supervision of Dr. Dyson. Informed consent was obtained after a detailed explanation of the procedure including risks, benefits, and alternatives. [place] protocol was observed using maximum sterile barrier [...] and left the Department in stable condition. [facility] RIS Darryl Cerrato MD - 12/20/2021 [...] minutes DAP 2 cGy cm 2 PROCEDURE: GLAZIER ARTIST: Everett Ga This procedure was performed by Everett Ga PA-C under indirect supervision of Dr. Dyson. Informed consent was obtained after a detailed explanation of the procedure including risks, benefits, and alternatives. [place] protocol was observed using maximum sterile barrier [...] condition. IMPRESSION: Successful fluoroscopic-guided right shoulder aspiration. [facility] Work Phone: Radiology Study observation (narrative) [employer] Work Phone: IR ARTHR/ASP/INJ MAJOR JT/BU RSA RIGHT WO USOrdered By: Darryl Dyson on 12-20-2021 [employer] Work Phone: No Panel Informationon 12-20 [facility] VANCOMYCIN, RANDOMon 022 Vancomycin Random Date last dose NOT REPORTED [facility] Vancomycin Random Dose amount NOT REPORTED [facility] Vancomycin Random Time last dose NOT REPORTED [facility] Vancom[facility] Rm 32.8 ug[facility] Comment on above: Higher trough serum vancomycin concentrations of 15-20 ug/mL are recommended for complicated infections such as bacteremia, endocarditis, osteomyelitis, meningitis, and hospital acquired pneumonia. Basic Metabolic Panel w/ Ref rebecca to MGon 12-19-2021 Anion gap [Moles/Vol] 9 mmol/L 9 - 17 mmol/L [facility] Calcium [Mass/Vol] 8.4 mg/dL Low 8.6 - 10. 4 mg/dL [facility] Chloride [Moles/Vol] 101 mmol/L 98 - 10 7 mmol/L [facility] CO2 [Moles/Vol] 22 mmol/L 20 - 31 mmol/L [facility] Creatinine [Mass/Vol] 0.72 mg/dL 0.70 - 1.20 mg/dL [facility] GFR >60 >60 mL/min studdex GFR Non- >60 >60 mL/min [facility] GFR/1.73 sq M.predicted MDRD (S/P/Bld) [Vol rate/Area] [facility] Comment on above: Average GFR for 30-3 9 years old: 107 mL/min/1.73sq m Chronic Kidney Disease: <60 mL/min/1.73sq m Kidney failure: <15 mL/min/1.73sq m eGFR calculated using average adult body mass. Additional eGFR calculator available at: http://www.Syncano.Minka/multiple_crcl_2012.htm GFR/1.73 sq M.predicted MDRD (S/P/Bld) [Vol rate/Area] NOT REPORTED [facility] Glucose [Mass/Vol] 106 mg/dL High 70 - 99 mg/dL [facility] Potassium [Moles/Vol] 5.4 mmol/L High 3.7 - 5.3 mmol/L [facility] Sodium [Moles/Vol] 132 mmol/L Low 135 - 144 mmol/L [facility] Urea nitrogen (BldV) [Mass/Vol] 11 mg/dL 6 - 20 mg/dL [facility] Urea nitrogen/Creatinine (Bld) [Mass ratio] NOT REPORTED [facility] C-Reactive Proteinon 022 CRP [Mass/Vol] 45.9 mg/L High 0.0 - 5.0 mg/L [facility] No Panel Informationon 12-19 Interpretation and review of laboratory results Abnormal [facility] POTASSIUMon 12-19-2021 Potassium [Moles/Vol] 4.3 mmol/L 3.7 - 5.3 mmol/L [facility] TSH with Reflexon 12-19-2021 TSH Qn 2.73 m[IU]/L [facility] XR CHEST PORTABLEon 12-19-19 22 Scattered infiltrate s with right-sided PICC line. [facility] RIS CONSOLIDATED EXAMINATION: ONE XRAY VIEW [...] with the tip in the mid SVC. [facility] CONSOLIDATED Conrad Aquino MD - [...] IMPRESSION: Scattered infiltrates with right-sided PICC line. [facility] [employer] Work Phone: Radiology Study observation (narrative) [facility] Work Phone: XR CHEST PORTABLEOrdered By: Conrad Aquino on 12-19-2021 [facility] Work Phone: Basic Metabolic Panel w/ Ref rebecca to MGon 12-18-2021 Anion gap [Moles/Vol] 8 mmol/L Low 9 - 17 mmol/L [facility] Calcium [Mass/Vol] 7.7 mg/dL Low 8.6 - 10. 4 mg/dL [facility] Chloride [Moles/Vol] 100 mmol/L 98 - 10 7 mmol/L [facility] CO2 [Moles/Vol] 20 mmol/L 20 - 31 mmol/L [facility] Creatinine [Mass/Vol] 0.38 mg/dL Low 0.70 - 1.20 mg/dL [facility] GFR >60 >60 mL/min [facility] GFR Non- >60 >60 mL/min [facility] GFR/1.73 sq M.predicted MDRD (S/P/Bld) [Vol rate/Area] [facility] [employer] Comment on above: Average GFR for 30-3 9 years old: 107 mL/min/1.73sq m Chronic Kidney Disease: <60 mL/min/1.73sq m Kidney failure: <15 mL/min/1.73sq m eGFR calculated using average adult body mass. Additional eGFR calculator available at: http://www.Zigabid/multiple_crcl_2012.htm GFR/1.73 sq M.predicted MDRD (S/P/Bld) [Vol rate/Area] NOT REPORTED [facility] Glucose [Mass/Vol] 121 mg/dL High 70 - 99 mg/dL [facility] Potassium [Moles/Vol] 4.1 mmol/L 3.7 - 5.3 mmol/L [facility] Sodium [Moles/Vol] 128 mmol/L Low 135 - 144 mmol/L [facility] Urea nitrogen (BldV) [Mass/Vol] 10 mg/dL 6 - 20 mg/dL [facility] Urea nitrogen/Creatinine (Bld) [Mass ratio] NOT REPORTED [facility] [employer] Body Fluid Cell Count with D ifferentialon 12-18-2021 Appearance, Fluid NOT REPORTED [facility] Basos, Fluid NOT REPORTED 0 % [employer] th Color, Fluid NOT REPORTED [employer] th Eos, Fluid NOT REPORTED 0 % [facility] Fluid Diff Comment NOT REPORTED [facility] [employer] Lymphocytes, Body Fluid 33 % [facility] Comment on above: The reference range and other method performance specifications have not been established for this body fluid. The test result must be integrated into the clinical context for interpretation. Monocyte Count, Fluid NOT REPORTED % [facility] Neutrophil Count, Fluid 47 % [facility] Comment on above: The reference range and other method performance specifications have not been established for this body fluid. The test result must be integrated into the clinical context for interpretation. Other Cells, Fluid MONOCYTES % [employer] Comment on above: The reference range and other method performance specifications have not been established for this body fluid. The test result must be integrated into the clinical context for interpretation. RBC, Fluid 5000 /mm3 [facility] Comment on above: The reference range and other method performance specifications have not been established for this body fluid. The test result must be integrated into the clinical context for interpretation. Specimen type Nom (Spec) .SYNOVIAL FLUID [facility] Comment on above: LEFT ANKLE WBC, Fluid 1126 /mm3 [facility] Comment on above: The reference range and other method performance specifications have not been established for this body fluid. The test result must be integrated into the clinical context for interpretation. [facility] Appearance, Fluid NOT REPORTED [facility] Basos, Fluid NOT REPORTED 0 % [employer] th Color, Fluid NOT REPORTED [employer] th Eos, Fluid NOT REPORTED 0 % [facility] Fluid Diff Comment NOT REPORTED studdex Lymphocytes, Body Fluid 9 % [facility] [...] for interpretation. Other Cells, Fluid MONOCYTES % [facility] Comment on above: The reference range and other method performance specifications have not been established for this body fluid. The test result must be integrated into the clinical context for interpretation. RBC, Fluid 16762 /mm3 [facility] Comment on above: The reference range and other method performance specifications have not been established for this body fluid. The test result must be integrated into the clinical context for interpretation. Specimen type Nom (Spec) LEFT [facility] Comment on above: .WRIST WBC, Fluid 67471 /mm3 [facility] Comment on above: The reference range and other method performance specifications have not been established for this body fluid. The test result must be integrated into the clinical context for interpretation. [facility] Body Fluid Crystalon 02-07-2 022 Crystals, Fluid Negative NEGATIVE [facility] Comment on above: NO CRYSTALS SEEN Specimen type Nom (Spec) .SYNOVIAL FLUID [facility] Comment on above: LEFT ANKLE [facility] Crystals, Fluid Negative NEGATIVE [facility] Comment on above: NO CRYSTALS SEEN Specimen type Nom (Spec) .SYNOVIAL FLUID [facility] Crystals, Fluid Negative NEGATIVE [facility] Comment on above: NO CRYSTALS SEEN Specimen type Nom (Spec) .SYNOVIAL FLUID [facility] Culture, Blood 1on 2 Bacteria identified Cx Nom (Unsp spec) Positive Abnormal [facility] Bacteria identified Cx Nom (Unsp spec) DIRECT GRAM STAIN FROM BOTTLE: GRAM POSITIVE COCCI IN CLUSTERS [employer] Bacteria identified Cx Nom (Unsp spec) METHICILLIN RESISTANT STAPHYLOCOCCUS AUREUS Abnormal [facility] Bacteria identified Cx Nom (Unsp spec) (NOTE) Direct Gram Stain from bottle result called to and read back by: ANSELMO Hernández on 12/17/21 at 01:35 [facility] Interpretation and review of laboratory results Abnormal [facility] Special Requests 20ML R HAND [facility] Specimen Description .BLOOD [facility] No Panel Informationon 12-18 Interpretation and review of laboratory results Abnormal [facility] VANCOMYCIN, TROUGHon 022 Vancomycin Tr 8.6 ug/mL Low 10.0 - 20.0 ug/mL [facility] Comment on above: Higher trough serum vancomycin concentrations of 15-20 ug/mL are recommended for complicated infections such as bacteremia, endocarditis, osteomyelitis, meningitis, and hospital acquired pneumonia. Vancomycin Trough Date last dose NOT REPORTED [employer] [facility] Vancomycin Trough Dose amount NOT REPORTED [facility] Vancomycin Trough Time last dose NOT REPORTED [facility] Basic Metabolic Panel w/ Ref rebecca to MGon 12-17-2021 Anion gap [Moles/Vol] 5 mmol/L Low 9 - 17 mmol/L [facility] Calcium [Mass/Vol] 7.9 mg/dL Low 8.6 - 10. 4 mg/dL [employer] Chloride [Moles/Vol] 102 mmol/L 98 - 10 7 mmol/L [facility] [employer] CO2 [Moles/Vol] 24 mmol/L 20 - 31 mmol/L [facility] Creatinine [Mass/Vol] 0.52 mg/dL Low 0.70 - 1.20 mg/dL [facility] [employer] GFR >60 >60 mL/min [facility] GFR Non- >60 >60 mL/min [facility] [employer] GFR/1.73 sq M.predicted MDRD (S/P/Bld) [Vol rate/Area] [facility] Comment on above: Average GFR for 30-3 9 years old: 107 mL/min/1.73sq m Chronic Kidney Disease: <60 mL/min/1.73sq m Kidney failure: <15 mL/min/1.73sq m eGFR calculated using average adult body mass. Additional eGFR calculator available at: http://www.Zigabid/multiple_crcl_2012.htm GFR/1.73 sq M.predicted MDRD (S/P/Bld) [Vol rate/Area] NOT REPORTED [facility] [employer] Glucose [Mass/Vol] 97 mg/dL 70 - 99 mg/dL [facility] [employer] Potassium [Moles/Vol] 4.7 mmol/L 3.7 - 5.3 mmol/L [facility] Sodium [Moles/Vol] 131 mmol/L Low 135 - 144 mmol/L [facility] Urea nitrogen (BldV) [Mass/Vol] 9 mg/dL 6 - 20 mg/dL [facility] Urea nitrogen/Creatinine (Bld) [Mass ratio] NOT REPORTED [facility] C-Reactive Proteinon 022 CRP [Mass/Vol] 56.1 mg/L High 0.0 - 5.0 mg/L [facility] [employer] CBC Auto Differentialon Absolute Eos # 0.12 [facility] th Absolute Immature Granulocyte 0.06 [facility] Absolute Lymph # 1.25 [facility] alth Absolute Dyer # 0.68 [facility] lth Basophils (Bld) [#/Vol] 0.06 10*3/uL [facility] Basophils/100 WBC (Bld) 1 % 0 - 2 % M [facility] [employer] Differential Type NOT REPORTED [facility] Eosinophils/100 WBC (Bld) 2 % 1 - 4 % [facility] Hematocrit (Bld) [Volume fraction] 28.4 % Low 40.7 - 50.3 % [facility] Hemoglobin.gastrointesti nal spec 1 Ql (Stl) 9.4 g/dL Low 13.0 - 17.0 g/dL [facility] Immature granulocytes/100 WBC (Bld) 1 % High 0 [facility] Interpretation and review of laboratory results Abnormal [facility] Lymphocytes/100 WBC (Bld) 20 % Low 24 - 43 % [facility] MCH (RBC) [Entitic mass] 28.0 pg 25. 2 - 33.5 pg [facility] MCHC (RBC) [Mass/Vol] 33.1 g/dL 28.4 - 34.8 g/dL [facility] MCV (RBC) [Entitic vol] 84.5 fL 82.6 - 102.9 fL [facility] Monocytes/100 WBC (Bld) 11 % 3 - 12 % [facility] NRBC Automated 0.0 0.0 per 100 WBC [facility] Platelet distribution width (Bld) [Ratio] 14.9 % High 11.8 - 14.4 % [facility] Platelet Estimate NOT REPORTED [facility] Platelet mean volume (Bld) [Entitic vol] 9.9 fL 8.1 - 13.5 fL [facility] Platelets (Bld) [#/Vol] 188 10*3/uL [facility] RBC (Bld) [#/Vol] 3.36 10*6/uL Low 4.21 - 5.7 7 m/uL [facility] RBC (Bld) [#/Vol] ANISOCYTOSIS PRESENT [facility] Segmented neutrophils/100 WBC (Bld) 65 % 36 - 65 % [facility] Segs Absolute 4.04 [facility] WBC (Bld) [#/Vol] 6.2 10*3/uL [facility] WBC (Bld) [#/Vol] NOT REPORTED [facility] No Panel Informationon 12-17 Interpretation and review of laboratory results Abnormal [facility] Basic Metabolic Panel w/ Ref rebecca to MGon 12-16-2021 Anion gap [Moles/Vol] 8 mmol/L Low 9 - 17 mmol/L [facility] Calcium [Mass/Vol] 7.6 mg/dL Low 8.6 - 10. 4 mg/dL [facility] Chloride [Moles/Vol] 97 mmol/L Low 98 - 10 7 mmol/L [facility] CO2 [Moles/Vol] 23 mmol/L 20 - 31 mmol/L [facility] Creatinine [Mass/Vol] 0.53 mg/dL Low 0.70 - 1.20 mg/dL [facility] GFR >60 >60 mL/min studdex GFR Non- >60 >60 mL/min [facility] [employer] GFR/1.73 sq M.predicted MDRD (S/P/Bld) [Vol rate/Area] [facility] [employer] Comment on above: Average GFR for 30-3 9 years old: 107 mL/min/1.73sq m Chronic Kidney Disease: <60 mL/min/1.73sq m Kidney failure: <15 mL/min/1.73sq m eGFR calculated using average adult body mass. Additional eGFR calculator available at: http://www.Zigabid/multiple_crcl_2012.htm GFR/1.73 sq M.predicted MDRD (S/P/Bld) [Vol rate/Area] NOT REPORTED [facility] [employer] Glucose [Mass/Vol] 117 mg/dL High 70 - 99 mg/dL [facility] Interpretation and review of laboratory results Abnormal [facility] Potassium [Moles/Vol] 4.1 mmol/L 3.7 - 5.3 mmol/L [facility] Sodium [Moles/Vol] 128 mmol/L Low 135 - 144 mmol/L [facility] Urea nitrogen (BldV) [Mass/Vol] 10 mg/dL 6 - 20 mg/dL [facility] Urea nitrogen/Creatinine (Bld) [Mass ratio] NOT REPORTED [facility] Body Fluid Cell Count with D ifferentialon 12-16-2021 Appearance, Fluid NOT REPORTED [facility] [employer] Basos, Fluid NOT REPORTED 0 % [facility] th Color, Fluid NOT REPORTED [facility] th Eos, Fluid NOT REPORTED 0 % [facility] Fluid Diff Comment NOT REPORTED [facility] [employer] [facility] Lymphocytes, Body Fluid 9 % [employer] Comment on above: The reference range and other method performance specifications have not been established for this body fluid. The test result must be integrated into the clinical context for interpretation. Monocyte Count, Fluid NOT REPORTED % [employer] [facility] Neutrophil Count, Fluid 91 % [facility] Comment on above: The reference range and other method performance specifications have not been established for this body fluid. The test result must be integrated into the clinical context for interpretation. Other Cells, Fluid NOT REPORTED % [facility] RBC, Fluid <3000 /mm3 [facility] [employer] Comment on above: The reference range and other method performance specifications have not been established for this body fluid. The test result must be integrated into the clinical context for interpretation. Specimen type Nom (Spec) RIGHT [facility] Comment on above: .KNEE WBC, Fluid 6514 /mm3 [facility] Comment on above: The reference range and other method performance specifications have not been established for this body fluid. The test result must be integrated into the clinical context for interpretation. [facility] CBC WITH AUTO DIFFERENTIALon 12-16-2021 Absolute Eos # 0.11 [facility] Absolute Immature Granulocyte <0.03 [facility] Absolute Lymph # 1.12 [facility] alth Absolute [place]yer # 0.75 [facility] lt Basophils (Bld) [#/Vol] 0.04 10*3/uL [facility] Basophils/100 WBC (Bld) 1 % 0 - 2 % [facility] Differential Type NOT REPORTED [facility] Eosinophils/100 WBC (Bld) 2 % 1 - 4 % [facility] Hematocrit (Bld) [Volume fraction] 29.2 % Low 40.7 - 50.3 % [facility] Hemoglobin.gastrointesti nal spec 1 Ql (Stl) 9.7 g/dL Low 13.0 - 17.0 g/dL [facility] Immature granulocytes/100 WBC (Bld) 0 % 0 [facility] Interpretation and review of laboratory results Abnormal [facility] Lymphocytes/100 WBC (Bld) 15 % Low 24 - 43 % [facility] MCH (RBC) [Entitic mass] 27.8 pg 25. 2 - 33.5 pg [facility] MCHC (RBC) [Mass/Vol] 33.2 g/dL 28.4 - 34.8 g/dL [facility] MCV (RBC) [Entitic vol] 83.7 fL 82.6 - 102.9 fL [facility] Monocytes/100 WBC (Bld) 10 % 3 - 12 % [facility] NRBC Automated 0.0 0.0 per 100 WBC [facility] Platelet distribution width (Bld) [Ratio] 15.0 % High 11.8 - 14.4 % [facility] Platelet Estimate NOT REPORTED [facility] Platelet mean volume (Bld) [Entitic vol] 10.0 fL 8.1 - 13.5 fL [facility] Platelets (Bld) [#/Vol] 163 10*3/uL [facility] RBC (Bld) [#/Vol] 3.49 10*6/uL Low 4.21 - 5.7 7 m/uL [facility] RBC (Bld) [#/Vol] ANISOCYTOSIS PRESENT [facility] Segmented neutrophils/100 WBC (Bld) 72 % High 36 - 65 % [facility] Segs Absolute 5.34 [facility] WBC (Bld) [#/Vol] 7.4 10*3/uL [facility] WBC (Bld) [#/Vol] NOT REPORTED [facility] Culture, Blood 1on 2 Bacteria identified Cx Nom (Unsp spec) Positive Abnormal [facility] Bacteria identified Cx Nom (Unsp spec) DIRECT GRAM STAIN FROM BOTTLE: GRAM POSITIVE COCCI IN CLUSTERS [facility] Bacteria identified Cx Nom (Unsp spec) METHICILLIN RESISTANT STAPHYLOCOCCUS AUREUS For susceptibility, refer to previous culture. Abnormal [facility] Bacteria identified Cx Nom (Unsp spec) (NOTE) Direct Gram Stain from bottle result called to and read back by: ANSLEMO Dewitt on 12/14/21 at 17:45 [facility] Interpretation and review of laboratory results Abnormal [facility] Special Requests L FA 7CC Lily alth Specimen Description .BLOOD [facility] No Panel Informationon 12-16 Radiology Study observation (narrative) [employer] Work Phone: Sedimentation Rateon 022 Interpretation and review of laboratory results Abnormal [facility] Sed Rate 32 mm High 0 - 15 mm [facility] VL DUP LOWER EXTREMITY VENOU S LEFTon 12-16-2021 Gordo Juárez MD - 12/16/2021 [facility] Vascular Lower Extremities DVT Study Procedure Patient Name COTY Date of Study 12/16/2021 TIP Boni Date of 1980 Gender Male Age 41 year(s) Race Room Number 0316 Height: 73 inch, 185.42 cm Corporate ID [id number] Weight: 170 pounds, 77.1 kg # Patient Acct [id number] BSA: 2.01 m^2 BMI: 22.43 kg/m^2 # MR # [id number] Customer Support Agent Vivienne Roach RVT Interpreting Physician Gordo Juárez [...] !None ! + (more content not included)... [employer] Phone: [employer] [facility] Phone: Radiology Study observation (narrative) [facility] Phone: VL DUP UPPER EXTREMITY VENOU S LEFTon 12-16-2021 Gordo Juárez MD - 12/16/2021 [facility] Vascular Upper Extremities Veins Procedure Patient Name COTY Date of Study 12/16/2021 TPI Boni Date of 1980 Gender Male Age 41 year(s) Race Room Number 0316 Height: 73 inch, 185.42 cm Corporate ID [id number] Weight: 170 pounds, 77.1 kg # Patient Acct [id number] BSA: 2.01 m^2 BMI: 22.43 kg/m^2 # MR # [id number] Customer Support Agent Vivienne Roach RVT Interpreting Physician Gordo Juárez [...] ! + --------- (more content not included)... [employer] Phone: Radiology Study observation (narrative) [employer] Phone: VL DUP UPPER EXTREMITY VENOU S LEFTOrdered By: Gordo Juárez on 12-16-2021 [employer] Phone: XR KNEE RIGHT (3 VIEWS)on No acute abnormality of the knee. [facility] EXAMINATION: THREE XRAY VIEWS OF THE RIGHT KNEE 12/16/2021 2:02 pm COMPARISON: None. HISTORY: ORDERING SYSTEM PROVIDED HISTORY: Trauma/Fracture TECHNOLOGIST PROVIDED HISTORY: Trauma/Fracture FINDINGS: No evidence of acute fracture or dislocation. No focal osseous lesion. No evidence of joint effusion. No focal soft tissue abnormality. [facility] Addy Gates MD - 12/16/2021 EXAMINATION: THREE XRAY VIEWS OF THE RIGHT KNEE 12/16/2021 2:02 pm COMPARISON: None. HISTORY: ORDERING SYSTEM PROVIDED HISTORY: Trauma/Fracture TECHNOLOGIST PROVIDED HISTORY: Trauma/Fracture FINDINGS: No evidence of acute fracture or dislocation. No focal osseous lesion. No evidence of joint effusion. No focal soft tissue abnormality. IMPRESSION: No acute abnormality of the knee. [employer] Phone: XR KNEE RIGHT (3 VIEWS)Order ed By: Addy Gates on 12-16-2021 [employer] Phone: XR SHOULDER RIGHT (MIN 2 VIE WS)on 12-16-2021 No acute osseous abnormality. [facility] EXAMINATION: THREE XRAY VIEWS OF THE RIGHT SHOULDER 12/16/2021 2:02 pm COMPARISON: None. HISTORY: ORDERING SYSTEM PROVIDED HISTORY: Trauma/Fracture TECHNOLOGIST PROVIDED HISTORY: Trauma/Fracture FINDINGS: Glenohumeral joint is normally aligned. No evidence of acute fracture or dislocation. No abnormal periarticular calcifications. The AC joint is unremarkable in appearance. Right PICC with tip in the superior vena cava. [facility] Addy Gates MD - [...] vena cava. IMPRESSION: No acute osseous abnormality. [employer] Work Phone: [employer] Work Phone: C-REACTIVE PROTEINon 022 CRP [Mass/Vol] 62.9 mg/L High 0.0 - 5.0 mg/L [facility] CBC WITH AUTO DIFFERENTIALon 12-15-2021 Absolute Eos # 0.25 [facility] th Absolute Immature Granulocyte 0.08 [employer] [facility] Absolute Lymph # 1.25 [facility] alth Absolute Dyer # 0.83 [facility] lth Basophils (Bld) [#/Vol] 0.08 10*3/uL [facility] Basophils/100 WBC (Bld) 1 % 0 - 2 % [facility] Differential Type NOT REPORTED [facility] Eosinophils/100 WBC (Bld) 3 % 1 - 4 % [facility] Hematocrit (Bld) [Volume fraction] 29.7 % Low 40.7 - 50.3 % [facility] Hemoglobin.gastrointesti nal spec 1 Ql (Stl) 9.8 g/dL Low 13.0 - 17.0 g/dL [facility] Immature granulocytes/100 WBC (Bld) 1 % High 0 [facility] Interpretation and review of laboratory results Abnormal [facility] Lymphocytes/100 WBC (Bld) 15 % Low 24 - 43 % [facility] MCH (RBC) [Entitic mass] 27.8 pg 25. 2 - 33.5 pg [facility] MCHC (RBC) [Mass/Vol] 33.0 g/dL 28.4 - 34.8 g/dL [facility] MCV (RBC) [Entitic vol] 84.4 fL 82.6 - 102.9 fL [facility] Monocytes/100 WBC (Bld) 10 % 3 - 12 % [facility] Morphology Adis (Bld) [Interp] ANISOCYTOSIS PRESENT [facility] NRBC Automated 0.0 0.0 per 100 WBC [facility] Platelet distribution width (Bld) [Ratio] 15.0 % High 11.8 - 14.4 % [facility] Platelet Estimate NOT REPORTED [facility] Platelet mean volume (Bld) [Entitic vol] 10.5 fL 8.1 - 13.5 fL [facility] Platelets (Bld) [#/Vol] 140 10*3/uL [facility] RBC (Bld) [#/Vol] 3.52 10*6/uL Low 4.21 - 5.7 7 m/uL [facility] RBC (Bld) [#/Vol] NOT REPORTED [facility] Segmented neutrophils/100 WBC (Bld) 70 % High 36 - 65 % [facility] Segs Absolute 5.81 [facility] WBC (Bld) [#/Vol] 8.3 10*3/uL [facility] WBC (Bld) [#/Vol] NOT REPORTED [facility] CREATININE, RANDOM URINEon 0 12-15-2021 Creatinine, Ur 64.4 mg/dL 39.0 - 259.0 mg/dL [facility] Catheterization and angiogra phy procedure details panelOrdered By: Unknown Result on 12-15-2021 [facility] Comprehensive Metabolic Pane l w/ Reflex to MGon 12-15-2021 Albumin [Mass/Vol] 1.9 g/dL Low 3.5 - 5.2 g/dL [facility] Albumin/Globulin [Mass ratio] 0.5 {ratio} Low [facility] ALP (Bld) [Catalytic activity/Vol] 117 U/L 40 - 129 U/L [facility] ALT [Catalytic activity/Vol] 64 U/L High 5 - 41 U/L [facility] Anion gap [Moles/Vol] 7 mmol/L Low 9 - 17 mmol/L [facility] AST [Catalytic activity/Vol] 55 U/L High <40 [facility] Bilirubin [Mass/Vol] 0.38 mg/dL 0.3 - 1 .2 mg/dL [facility] [employer] Calcium [Mass/Vol] 7.0 mg/dL Low 8.6 - 10. 4 mg/dL [facility] Chloride [Moles/Vol] 100 mmol/L 98 - 10 7 mmol/L [facility] CO2 [Moles/Vol] 22 mmol/L 20 - 31 mmol/L [facility] Creatinine [Mass/Vol] 0.55 mg/dL Low 0.70 - 1.20 mg/dL [facility] Free PSA/Total PSA [Mass fraction] 5.7 g/dL Low 6.4 - 8.3 g/dL [facility] GFR >60 >60 mL/min [facility] [employer] [facility] GFR Non- >60 >60 mL/min [facility] GFR/1.73 sq M.predicted MDRD (S/P/Bld) [Vol rate/Area] [facility] Comment on above: Average GFR for 30-3 9 years old: 107 mL/min/1.73sq m Chronic Kidney Disease: <60 mL/min/1.73sq m Kidney failure: <15 mL/min/1.73sq m eGFR calculated using average adult body mass. Additional eGFR calculator available at: http://www.Z[employer]/multiple_crcl_2012.htm GFR/1.73 sq M.predicted MDRD (S/P/Bld) [Vol rate/Area] NOT REPORTED [employer] Glucose [Mass/Vol] 111 mg/dL High 70 - 99 mg/dL [facility] Potassium [Moles/Vol] 4.2 mmol/L 3.7 - 5.3 mmol/L [employer] Sodium [Moles/Vol] 129 mmol/L Low 135 - 144 mmol/L [employer] Urea nitrogen (BldV) [Mass/Vol] 9 mg/dL 6 - 20 mg/dL [employer] Urea nitrogen/Creatinine (Bld) [Mass ratio] NOT REPORTED [facility] Culture, Blood 1on 2 Bacteria identified Cx Nom (Unsp spec) Positive Abnormal [facility] Bacteria identified Cx Nom (Unsp spec) DIRECT GRAM STAIN FROM BOTTLE: GRAM POSITIVE COCCI IN CLUSTERS [employer] Bacteria identified Cx Nom (Unsp spec) Staphylococcus aureus Detected: mecA/C and MREJ Gene Detected- Methicillin Resistant Organism Methodology- Polymerase Chain Reaction (PCR) Abnormal [facility] Bacteria identified Cx Nom (Unsp spec) METHICILLIN RESISTANT STAPHYLOCOCCUS AUREUS Abnormal [facility] Bacteria identified Cx Nom (Unsp spec) (NOTE) Direct Gram Stain from bottle and Polymerase Chain Reaction (PCR) results called to and read back by:DIANE Martinez AT 1440 ON 12/14/2021 [facility] Interpretation and review of laboratory results Abnormal [facility] Special Requests RT AC [address] [facility] Specimen Description .BLOOD [facility] No Panel Informationon 12-15 [facility] Interpretation and review of laboratory results Abnormal [facility] Osmolality, Urineon 12-15-19 22 Osmolality, Ur [address] [facility] th [facility] SODIUM, URINE, RANDOMon Sodium (U) [Moles/Vol] 140 mmol/L [facility] Comment on above: No normal range esta blished. Vancomycin, Randomon 022 Vancomycin Random Date last dose NOT REPORTED [facility] Vancomycin Random Dose amount NOT REPORTED [facility] Vancomycin Random Time last dose NOT REPORTED [facility] Vancomycin Rm 14 ug/mL [facility] Comment on above: Higher trough serum vancomycin concentrations of 15-20 ug/mL are recommended for complicated infections such as bacteremia, endocarditis, osteomyelitis, meningitis, and hospital acquired pneumonia. [facility] Basic Metabolic Panel w/ Ref rebecca to MGon 12-14-2021 Anion gap [Moles/Vol] 6 mmol/L Low 9 - 17 mmol/L [facility] [employer] Calcium [Mass/Vol] 7.6 mg/dL Low 8.6 - 10. 4 mg/dL [facility] Chloride [Moles/Vol] 106 mmol/L 98 - 10 7 mmol/L [facility] CO2 [Moles/Vol] 23 mmol/L 20 - 31 mmol/L [facility] [employer] Creatinine [Mass/Vol] 0.55 mg/dL Low 0.70 - 1.20 mg/dL [facility] [employer] GFR >60 >60 mL/min [facility] [employer] [facility] GFR Non- >60 >60 mL/min [facility] GFR/1.73 sq M.predicted MDRD (S/P/Bld) [Vol rate/Area] [facility] Comment on above: Average GFR for 30-3 9 years old: 107 mL/min/1.73sq m Chronic Kidney Disease: <60 mL/min/1.73sq m Kidney failure: <15 mL/min/1.73sq m eGFR calculated using average adult body mass. Additional eGFR calculator available at: http://www.Zig[employer]/multiple_crcl_2012.htm GFR/1.73 sq M.predicted MDRD (S/P/Bld) [Vol rate/Area] NOT REPORTED [facility] Glucose [Mass/Vol] 111 mg/dL High 70 - 99 mg/dL [facility] Interpretation and review of laboratory results Abnormal [facility] Potassium [Moles/Vol] 3.6 mmol/L Low 3.7 - 5.3 mmol/L [facility] Sodium [Moles/Vol] 135 mmol/L 135 - 144 mmol/L [facility] Urea nitrogen (BldV) [Mass/Vol] 13 mg/dL 6 - 20 mg/dL [facility] Urea nitrogen/Creatinine (Bld) [Mass ratio] NOT REPORTED [facility] CBC auto differentialon Absolute Eos # 0.20 [facility] th Absolute Immature Granulocyte 0.05 [facility] Absolute Lymph # 1.04 Low [facility] alth Absolute Dyer # 0.87 [facility] lth Basophils (Bld) [#/Vol] 0.03 10*3/uL [facility] Basophils/100 WBC (Bld) 0 % 0 - 2 % [facility] Differential Type NOT REPORTED [facility] Eosinophils/100 WBC (Bld) 2 % 1 - 4 % [facility] Hematocrit (Bld) [Volume fraction] 30.8 % Low 40.7 - 50.3 % [facility] Hemoglobin.gastrointesti nal spec 1 Ql (Stl) 10.3 g/dL Low 13.0 - 17.0 g/dL [facility] Immature granulocytes/100 WBC (Bld) 1 % High 0 [facility] Interpretation and review of laboratory results Abnormal [facility] Lymphocytes/100 WBC (Bld) 11 % Low 24 - 43 % [facility] MCH (RBC) [Entitic mass] 27.9 pg 25. 2 - 33.5 pg [facility] MCHC (RBC) [Mass/Vol] 33.4 g/dL 28.4 - 34.8 g/dL [facility] MCV (RBC) [Entitic vol] 83.5 fL 82.6 - 102.9 fL [facility] Monocytes/100 WBC (Bld) 9 % 3 - 12 % [facility] NRBC Automated 0.0 0.0 per 100 WBC [facility] Platelet distribution width (Bld) [Ratio] 14.7 % High 11.8 - 14.4 % [facility] Platelet Estimate NOT REPORTED [facility] Platelet mean volume (Bld) [Entitic vol] 10.8 fL 8.1 - 13.5 fL [facility] Platelets (Bld) [#/Vol] 150 10*3/uL [facility] RBC (Bld) [#/Vol] 3.69 10*6/uL Low 4.21 - 5.7 7 m/uL [facility] RBC (Bld) [#/Vol] ANISOCYTOSIS PRESENT [facility] Segmented neutrophils/100 WBC (Bld) 77 % High 36 - 65 % [facility] Segs Absolute 7.03 [facility] W[facility] (Bld) [#/Vol] 9.2 10*3/uL [facility] WBC (Bld) [#/Vol] NOT REPORTED [facility] CULTURE BLOODon 12-14-2021 Microscopic examination of blood, [...] F Oxacillin >=4 R F Normal [facility] Comment on above: Performed By: #### C MELCHOR #### [facility] [address] [place] [address] Dr. Amanda Mendez-INRon 12-14-2021 INR Coag (Bld) [Relative time] 1.2 {INR} [facility] Comment on above: Therapeutic Range: Moderate Anticoagulant Intensity: INR = 2.0-3.0 High Anticoagulant Intensity: INR = 2.5-3.5 Interpretation and review of laboratory results Abnormal [facility] PT Coag (PPP) [Time] 13 s High studdex [facility] Basic Metabolic Panel w/ Ref rebecca to MGon 12-13-2021 Anion gap [Moles/Vol] 9 mmol/L 9 - 17 mmol/L [facility] Calcium [Mass/Vol] 7.4 mg/dL Low 8.6 - 10. 4 mg/dL [facility] Chloride [Moles/Vol] 104 mmol/L 98 - 10 7 mmol/L [facility] CO2 [Moles/Vol] 22 mmol/L 20 - 31 mmol/L [facility] Creatinine [Mass/Vol] 0.56 mg/dL Low 0.70 - 1.20 mg/dL [facility] GFR >60 >60 mL/min [employer] GFR Non- >60 >60 mL/min [facility] GFR/1.73 sq M.predicted MDRD (S/P/Bld) [Vol rate/Area] [facility] Comment on above: Average GFR for 30-3 9 years old: 107 mL/min/1.73sq m Chronic Kidney Disease: <60 mL/min/1.73sq m Kidney failure: <15 mL/min/1.73sq m eGFR calculated using average adult body mass. Additional eGFR calculator available at: http://www.Zigabid/multiple_crcl_2012.htm GFR/1.73 sq M.predicted MDRD (S/P/Bld) [Vol rate/Area] NOT REPORTED [facility] Glucose [Mass/Vol] 121 mg/dL High 70 - 99 mg/dL [facility] Interpretation and review of laboratory results Abnormal [facility] Potassium [Moles/Vol] 3.4 mmol/L Low 3.7 - 5.3 mmol/L [facility] Sodium [Moles/Vol] 135 mmol/L 135 - 144 mmol/L [facility] [employer] Urea nitrogen (BldV) [Mass/Vol] 9 mg/dL 6 - 20 mg/dL [facility] Urea nitrogen/Creatinine (Bld) [Mass ratio] NOT REPORTED [facility] C-Reactive Proteinon 022 CRP [Mass/Vol] 110.3 mg/L High 0.0 - 5.0 mg/L [facility] Interpretation and review of laboratory results Abnormal [facility] CBC AUTO DIFFon 12-13-2021 BASO # 0.0 103/ul Normal 0.0-0.1 [facility] Comment on above: Performed By: #### V ANCT #### [facility] [address] [address] [address] Amanda Cottrell Basophils/100 WBC (Bld) 0.2 % Normal 0.2-2.0 [facility] Comment on above: Performed By: #### V ANCT #### [facility] [address] [address] [address] Amanda Cottrell EO # 0.1 103/ul Normal 0.0-0.7 [facility] Comment on above: Performed By: #### V ANCT #### [facility] [address] [address] [address] Amanda Cottrell Eosinophils/100 WBC (Bld) 1.0 % Normal 0.9-7.0 [facility] Comment on above: Performed By: #### V ANCT #### [facility] [address] [address] [address] Amanda Cottrell Erythrocyte distribution width (RBC) [Ratio] 14.6 % Normal 11.0-15.0 [facility] Comment on above: Performed By: #### V ANCT #### [facility] [address] [address] [address] Amanda Cottrell Hematocrit (Bld) [Volume fraction] 31.3 % Critically low 42.0-54.0 [facility] Comment on above: Performed By: #### V ANCT #### [facility] [address] [address] [address] Amanda Cottrell Hemoglobin (Bld) [Mass/Vol] 10.4 g/dL Critically low 14.0-18.0 [facility] Comment on above: Performed By: #### V ANCT #### [facility] [address] [address] [address] Amanda Cottrell IG # 0.07 10e3/ul Critically high 0.00-0.03 [facility] Comment on above: Performed By: #### V ANCT #### [facility] [address] [address] [address] Amanda Cottrell IG % 0.8 % Critically high 0.0-0.5 [facility] Comment on above: Performed By: #### V ANCT #### [facility] [address] [address] [address] Amanda Cottrell LYMPH # 0.5 103/ul Critically low 1.2-3.[address] [facility] Comment on above: Performed By: #### V ANCT #### [facility] [address] [address] [address] Amanda Cottrell Lymphocytes/100 WBC (Bld) 5.0 % Critically low 20.5-60.0 [facility] Comment on above: Performed By: #### V ANCT #### [facility] [address] [address] [address] Amanda Cottrell MANUAL DIFF REQ NO Normal [facility] Comment on above: Performed By: #### V ANCT #### [facility] [address] [address] [address] Amanda Cottrell MCH (RBC) [Entitic mass] 27.5 pg Normal 25.9-34.0 [facility] Comment on above: Performed By: #### V ANCT #### [facility] [address] [address] [address] Amanda Cottrell MCHC (RBC) [Mass/Vol] 33.2 g/dL Normal 29.9-35.2 [facility] Comment on above: Performed By: #### V ANCT #### [facility] [address] [address] [address] Amanda Cottrell MCV (RBC) [Entitic vol] 82.8 fL Normal 80.0-94.0 [facility] Comment on above: Performed By: #### V ANCT #### [facility] [address] [address] [address] Amanda Cottrell MONO # 0.7 103/ul Normal 0.3-0.8 [facility] Comment on above: Performed By: #### V ANCT #### [facility] [address] [address] [address] Amanda Cottrell Monocytes/100 WBC (Bld) 7.9 % Normal 1.7-12.0 [facility] Comment on above: Performed By: #### V ANCT #### [facility] [address] [place] [address] Dr. Amanda Cottrell NEUT # 7.9 103/ul Critically high 1.4-6.5 [facility] Comment on above: Performed By: #### V ANCT #### [facility] [address] [place] [address] Dr. Amanda Cottrell Neutrophils/100 WBC (Bld) 85.1 % Critically high 43.0-75.0 [facility] Comment on above: Performed By: #### V ANCT #### [facility] [address] [place] [address] Dr. Amanda Cottrell Platelet mean volume (Bld) [Entitic vol] 11.1 fL Normal 9.5-13.5 [facility] Comment on above: Performed By: #### V ANCT #### [facility] [address] [place] [address] Dr. Amanda Cottrell PLT 98 103/ul Critically low 150-[address] [facility] Comment on above: Performed By: #### V ANCT #### [facility] [address] [place] [address] Dr. Amanda Cottrell RBC 3.78 106/ul Critically low 4.70-6.10 [facility] Comment on above: Performed By: #### V ANCT #### [facility] [address] [place] [address] Dr. Amanda Cottrell WBC 9.2 103/ul Normal 4.0-11.0 [facility] Comment on above: Performed By: #### V ANCT #### [facility] [address] [place] [address] Dr. Amanda Cottrell CBC Auto Differentialon Absolute Eos # 0.14 [facility] Absolute Immature Granulocyte 0.03 [facility] Absolute Lymph # 0.86 Low [facility] alth Absolute Dyer # 0.92 [facility] Basophils (Bld) [#/Vol] 10*3/uL [facility] Basophils/100 WBC (Bld) 0 % 0 - 2 % [facility] Differential Type NOT REPORTED [facility] Eosinophils/100 WBC (Bld) 2 % 1 - 4 % [facility] Hematocrit (Bld) [Volume fraction] 28.9 % Low 40.7 - 50.3 % [facility] Hemoglobin.gastrointesti nal spec 1 Ql (Stl) 10.1 g/dL Low 13.0 - 17.0 g/dL [facility] Immature granulocytes/100 WBC (Bld) 0 % 0 [facility] Interpretation and review of laboratory results Abnormal [facility] Lymphocytes/100 WBC (Bld) 10 % Low 24 - 43 % [facility] MCH (RBC) [Entitic mass] 28.3 pg 25. 2 - 33.5 pg [facility] MCHC (RBC) [Mass/Vol] 34.9 g/dL High 28.4 - 34.8 g/dL [facility] MCV (RBC) [Entitic vol] 81.0 fL Low 82.6 - 102.9 fL [facility] Monocytes/100 WBC (Bld) 10 % 3 - 12 % [facility] NRBC Automated 0.0 0.0 per 100 WBC [facility] Platelet distribution width (Bld) [Ratio] 14.5 % High 11.8 - 14.4 % [facility] Platelet Estimate NOT REPORTED [facility] Platelet mean volume (Bld) [Entitic vol] NOT REPORTED 8.1 - 13.5 fL [facility] Platelets (Bld) [#/Vol] See Reflexed IPF Result [facility] RBC (Bld) [#/Vol] 3.57 10*6/uL Low 4.21 - 5.7 7 m/uL [facility] RBC (Bld) [#/Vol] ANISOCYTOSIS PRESENT [facility] Comment on above: MICROCYTOSIS PRESENT Segmented neutrophils/100 WBC (Bld) 78 % High 36 - 65 % [facility] Segs Absolute 7.08 [facility] h WBC (Bld) [#/Vol] 9.1 10*3/uL [facility] WBC (Bld) [#/Vol] NOT REPORTED [facility] D-Dimer, Quantitativeon 02 D-Dimer, Quant 2.63 mg/L FEU [facility] Comment on above: When combined with a low clinical probability, a D dimer value of <0.50 mg/L FEU is considered negative for DVT and PE (negative predictive value of 98%, sensitivity of 97%). If this test is not being used to help rule out DVT and PE, then the following reference range should be utilized: 0.00 - 1.02 mg/L FEU. The [employer] D-Dimer assay is intended for use as [...] more prevalent in patients with distal DVT. [facility] Immature Platelet Fractionon 12-13-2021 Interpretation and review of laboratory results Abnormal [facility] Platelet, Fluorescence 112 Low Me [facility] Platelet, Immature Fraction 3.4 % 1.1 - 10.3 % [facility] Magnesiumon 12-13-2021 Magnesium [Mass/Vol] 1.9 mg/dL 1.6 - 2 .6 mg/dL [facility] No Panel Informationon 12-13 Left wrist: No [...] of insertion of Achillis tendon to calcaneus. [facility] Akanksha Samuels MD - 12/13/2021 [...] of insertion of Achillis tendon to calcaneus. [employer] Work Phone: Radiology Study observation (narrative) [employer] Work Phone: No Panel InformationOrdered By: Akanksha Santoro on 12-13-2021 [employer] Work Phone: PROF CHEM 8 (BAS METB)on Anion gap [Moles/Vol] 9.4 mmol/L Normal [facility] Comment on above: Performed By: #### B MP #### [facility] [address] [place] [address] Dr. Amanda Cottrell Calcium [Mass/Vol] 7.4 mg/dL Critically low 8.4-10.2 [facility] Comment on above: Performed By: #### B MP #### [facility] [address] [address] [address] Amanda Cottrell Chloride [Moles/Vol] 102 mmol/L Normal 98-107 [facility] Comment on above: Performed By: #### B MP #### [facility] [address] [address] [address] Amanda Cottrell CO2 [Moles/Vol] 24.8 mmol/L Normal 22.0-30.0 [facility] Comment on above: Performed By: #### B MP #### [facility] [address] [address] [address] Amanda Cottrell Creatinine [Mass/Vol] 0.65 mg/dL Critically low 0.66-1.25 [facility] Comment on above: Performed By: #### B MP #### [facility] [address] [address] [address] Amanda Cottrell EGFR-AF MICRONESIAN >60 Normal >=60 [facility] Comment on above: Performed By: #### B MP #### [facility] [address] [address] [address] Amanda Cottrell EGFR-NON AF MICRONESIAN >60 Normal >=60 [facility] Comment on above: Performed By: #### B MP #### [facility] [address] [place] [address] Dr. Amanda Cottrell Glucose [Mass/Vol] 115 mg/dL Critically high 74-106 [facility] Comment on above: Performed By: #### B MP #### [facility] [address] [address] [address] Amanda Cottrell Potassium [Moles/Vol] 3.2 mmol/L Critically low 3.4-5.0 [facility] Comment on above: Performed By: #### B MP #### [facility] [address] [address] [address] Amanda Cottrell Sodium [Moles/Vol] 133 mmol/L Critically low 137-145 Th [facility] Comment on above: Performed By: #### B MP #### [facility] [address] [address] [address] Amanda Cottrell Urea nitrogen [Mass/Vol] 9.0 mg/dL Normal 9.0-20.0 [facility] Comment on above: Performed By: #### B MP #### [facility] [address] [address] [address] Amanda Cottrell Urea nitrogen/Creatinine [Mass ratio] 13.8 mg/mg Normal [facility] Comment on above: Performed By: #### B MP #### [facility] [address] [address] [address] Amanda Cottrell SPECIMEN REJECTIONon 022 - NOT REPORTED [facility] Ordered Test DIGNA,CHANO [facility] Reason for Rejection Unable to perform testing: Specimen clotted. [facility] Specimen source Nom (Unsp spec) .BLOOD [facility] Troponinon 12-13-2021 Troponin Interp NOT REPORTED [facility] ealt Troponin T NOT REPORTED <0.03 ng/mL [facility] Troponin, High Sensitivity <6 0 - 22 ng/L [facility] Comment on above: High Sensitivity Troponin values cannot be compared with other Troponin methodologies. Patients with high levels of Biotin oral intake (i.e >5mg/day) may have falsely decreased Troponin levels. Samples collected within 8 hours of biotin intake may require additional information for diagnosis. [facility] VANCOMYCIN TROUGHon 12-13-19 22 VANCOMYCIN TROUGH 9.8 ug/ml Normal 5.0-20.0 [facility] Comment on above: Performed By: #### V ANCT #### [facility] [address] [address] [address] Amanda Cottrell CBC W MANUAL DIFFon 12-12-19 22 ANISOCYTOSIS 1+ Normal [facility] Comment on above: Performed By: #### C BCMAN #### [facility] [address] [address] [address] Amanda Cottrell ATYPICAL LYMPH # Normal [facility] Comment on above: Performed By: #### C BCMAN #### [facility] [id number] Amanda Cottrell ATYPICAL LYMPH % Normal [facility] Comment on above: Performed By: #### C BCMAN #### [facility] [address] [place] [address] Dr. Amanda Cottrell BAND # 0.7 103/ul Critically high 0.0-0.3 [facility] Comment on above: Performed By: #### C BCMACY #### [facility] [address] [place] [address] Dr. Amanda Cottrell BAND % 8 % Critically high 0-5 [facility] Comment on above: Performed By: #### C MELCHOR #### [facility] [address] [place] [address] Dr. Amanda Cottrell BASOM # 0.00 103/ul Normal 0.00-0.10 [facility] Comment on above: Performed By: #### C MELCHOR #### [facility] [address] [place] [address] Dr. Amanda Cottrell BASOM % 0.0 % Critically low 0.2-2.0 [facility] Comment on above: Performed By: #### C MELCHOR #### [facility] [address] [place] [address] Dr. Amanda Cottrell BLAST # Normal [facility] Comment on above: Performed By: #### C MELCHOR #### [facility] [address] [place] [address] Dr. Amanda Cottrell BLAST % Normal [facility] Comment on above: Performed By: #### C MELCHOR #### [facility] [address] [place] [address] Dr. Amanda Cottrell CORRECTED WBC Normal 4.0-11.0 [facility] Comment on above: Performed By: #### C MELCHOR #### [facility] [address] [place] [address] Dr. Amanda Cottrell EOS # 0.00 103/ul Normal 0.00-0.70 [facility] Comment on above: Performed By: #### C MELCHOR #### [facility] [address] [place] [address] Dr. Amanda Cottrell EOS% 0.0 % Critically low 0.9-7.0 [facility] Comment on above: Performed By: #### C MELCHOR #### [facility] [address] [address] [address] Amanda Cottrell HCT 28.7 % Critically low 42.0-54.[address] [facility] Comment on above: Performed By: #### C MELCHOR #### [facility] [address] [address] [address] Amanda Cottrell HGB 9.5 g/dl Critically low 14.0-18.[address] [facility] Comment on above: Performed By: #### C MELCHOR #### [facility] [address] [address] [address] Amanda Cottrell LYMPHM # 0.49 103/ul Critically low 1.20-3.80 [facility] Comment on above: Performed By: #### C MELCHOR #### [facility] [address] [place] [address] Dr. Amanda Cottrell LYMPHM% 6.0 % Critically low 20.5-60.[address] [facility] Comment on above: Performed By: #### C MELCHOR #### [facility] [address] [address] [address] Amanda Cottrell MCH 27.4 pg Normal 25.9-34.0 [facility] Comment on above: Performed By: #### C MELCHOR #### [facility] [address] [place] [address] Dr. Amanda Cottrell MCHC 33.1 g/dl Normal 29.9-35.2 [facility] Comment on above: Performed By: #### C MELCHOR #### [facility] [address] [place] [address] Dr. Amanda Cottrell MCV 82.7 fL Normal 80.0-94.0 [facility] Comment on above: Performed By: #### C MELCHOR #### [facility] [address] [place] [address] Dr. Amanda Cottrell METAMYELOCYTE # Normal [facility] Comment on above: Performed By: #### C MELCHOR #### [facility] [address] [address] [address] Amanda Cottrell METAMYELOCYTE % Normal [facility] Comment on above: Performed By: #### C MELCHOR #### [facility] [address] [address] [address] Amanda Cottrell MONOM# 0.74 103/ul Normal 0.30-0.80 [facility] Comment on above: Performed By: #### C MELCHOR #### [facility] [address] [address] [address] Amanda Cottrell MONOM% 9.0 % Normal 1.7-12.0 [facility] Comment on above: Performed By: #### C MELCHOR #### [facility] [address] [address] [address] Amanda Cottrell MPV 10.5 fL Normal 9.5-13.5 [facility] Comment on above: Performed By: #### C MELCHOR #### [facility] [address] [place] [address] Dr. Amanda Cottrell MYELOCYTE # Normal [facility] Comment on above: Performed By: #### C MELCHOR #### [facility] [address] [address] [address] Amanda Cottrell MYELOCYTE % Normal [facility] Comment on above: Performed By: #### C MELCHOR #### [facility] [address] [address] [address] Amanda Cottrell NRBC Normal [facility] Comment on above: Performed By: #### C MELCHOR #### [facility] [address] [place] [address] Dr. Amanda Cottrell PLT 95 103/ul Critically low 150-[address] [facility] Comment on above: Performed By: #### C MELCHOR #### [facility] [address] [address] [address] Amanda Cottrell RBC 3.47 106/ul Critically low 4.70-6.10 [facility] Comment on above: Performed By: #### C MELCHOR #### [facility] [address] [place] [address] Dr. Amanda Cottrell RDW 14.3 % Normal 11.0-15.0 [facility] Comment on above: Performed By: #### C BCMAN #### [facility] [address] [place], [place] [address] Dr. Amanda Cottrell SEG # 6.31 103/ul Normal 1.40-6.50 [facility] Comment on above: Performed By: #### C BCMAN #### [facility] [address] [place], [place] [address] Dr. Amanda Cottrell SEG % 77.0 % Critically high 43.0-75.0 [facility] Comment on above: Performed By: #### C BCMAN #### [facility] [address] [place], [place] [address] Dr. Amanda Cottrell WBC 8.2 103/ul Normal 4.0-11.0 [facility] Comment on above: Performed By: #### C BCMAN #### [facility] [address] [place], [place] [address] Dr. Amanda Cottrell ECHO LIMITED STUDYon 022 ECHO LIMITED STUDY Patient: TIP ANSARI Exam Date: 12/12/2021 : 1980 Gender:M Ordering : DR EMY REBOLLEDO . Admission #: [id number] Family : Order #: [id number] CLICK HERE TO VIEW EXAM ECHOCARDIOGRAM REPORT [...] Moyer M.D. on 12/12/2021 at 16:15 Normal [facility] PROF 14(COMP METB)on 022 Albumin [Mass/Vol] 1.6 g/dL Critically low 3.5-5.0 Th [facility] Comment on above: Performed By: #### V ANCT #### [facility] [address] [place] [address] Dr. Amanda Cottrell Albumin/Globulin [Mass ratio] 0.4 {ratio} Normal [facility] Comment on above: Performed By: #### V ANCT #### [facility] [address] [place] [address] Dr. Amanda Cottrell ALP [Catalytic activity/Vol] 71 U/L Normal 38-126 [facility] Comment on above: Performed By: #### V ANCT #### [facility] [address] [place] [address] Dr. Amanda Cottrell ALT [Catalytic activity/Vol] 30 U/L Normal 21-72 [facility] Comment on above: Performed By: #### V ANCT #### [facility] [address] [place] [address] Dr. Amanda Cottrell Anion gap [Moles/Vol] 10.0 mmol/L Normal [facility] Comment on above: Performed By: #### V ANCT #### [facility] [address] [place] [address] Dr. Amanda Cottrell AST [Catalytic activity/Vol] 21 U/L Normal 17-59 [facility] Comment on above: Performed By: #### V ANCT #### [facility] [address] [place] [address] Dr. Amanda Cottrell Bilirubin [Mass/Vol] 0.7 mg/dL Normal 0.2-1.3 [facility] Comment on above: Performed By: #### V ANCT #### [facility] [address] [place] [address] Dr. Amanda Cottrell Calcium [Mass/Vol] 7.8 mg/dL Critically low 8.4-10.2 Th [facility] Comment on above: Performed By: #### V ANCT #### [facility] [address] [address] [address] Amanda Cottrell Chloride [Moles/Vol] 100 mmol/L Normal 98-107 [facility] Comment on above: Performed By: #### V ANCT #### [facility] [address] [address] [address] Amanda Cottrell CO2 [Moles/Vol] 23.1 mmol/L Normal 22.0-30.0 [facility] Comment on above: Performed By: #### V ANCT #### [facility] [address] [address] [address] Amanda Cottrell Creatinine [Mass/Vol] 0.67 mg/dL Normal 0.66-1.25 [facility] Comment on above: Performed By: #### V ANCT #### [facility] [address] [place] [address] Dr. Amanda Cottrell EGFR-AF MICRONESIAN >60 Normal >=60 [facility] Comment on above: Performed By: #### V ANCT #### [facility] [address] [address] [address] Amanda Cottrell EGFR-NON AF MICRONESIAN >60 Normal >=60 [facility] Comment on above: Performed By: #### V ANCT #### [facility] [address] [place] [address] Dr. Amanda Cottrell Globulin (S) [Mass/Vol] 3.8 g/dL Normal [facility] Comment on above: Performed By: #### V ANCT #### [facility] [address] [place] [address] Dr. Amanda Cottrell Glucose [Mass/Vol] 113 mg/dL Critically high 74-106 [facility] Comment on above: Performed By: #### V ANCT #### [facility] [address] [address] [address] Amanda Cottrell Potassium [Moles/Vol] 3.1 mmol/L Critically low 3.4-5.0 [facility] Comment on above: Performed By: #### V ANCT #### [facility] [address] [address] [address] Amanda Cottrell Protein [Mass/Vol] 5.4 g/dL Critically low 6.1-8.2 Th [facility] Comment on above: Performed By: #### V ANCT #### [facility] [address] [address] [address] Amanda Cottrell Sodium [Moles/Vol] 130 mmol/L Critically low 137-145 Th [facility] Comment on above: Performed By: #### V ANCT #### [facility] [address] [address] [address] Amanad Cottrell Urea nitrogen [Mass/Vol] 12.0 mg/dL Normal 9.0-20.0 [facility] Comment on above: Performed By: #### V ANCT #### [facility] [address] [place] [address] Dr. Amanda Cottrell Urea nitrogen/Creatinine [Mass ratio] 17.9 mg/mg Normal [facility] Comment on above: Performed By: #### V ANCT #### [facility] [address] [place] [address] Dr. Amanda Cottrell XR CHEST 1 Von [...] by: JOELLE MEDEIROS Date: 2021-12-12 12:09 Normal [facility] BLOOD CULTURE ID PANELon Bottle Set: Set 1 Normal [facility] Comment on above: Performed By: #### V ANCT #### [facility] [address] [place] [address] Dr. Amanda Cottrell BLOOD CULTURE ID PANEL SUBSE Kory 12-11-2021 A. baumannii Not detected [facility] Comment on above: Performed By: #### B CIDSUB #### [facility] [address] [place] [address] Dr. Amanda Cottrell Performed By: #### V ANCT #### [facility] [address] [place] [address] Dr. Amanda Cottrell BCID CONTROLS PASSED Normal [facility] Comment on above: Performed By: #### B CIDSUB #### [facility] [address] [place] [address] Dr. Amanda Cottrell Performed By: #### V ANCT #### [facility] [address] [place] [address] Dr. Amanda Cottrell BCIDBTHD BLOOD CULTURE BOTTLE INFORMATION Normal [facility] Comment on above: Performed By: #### B CIDSUB #### [facility] [address] [place] [address] Dr. Amanda Cottrell Performed By: #### V ANCT #### [facility] [address] [place] [address] Dr. Amanda Cottrell BCIDHD1 ANTIMICROBIAL RESISTANCE GENES [facility] Comment on above: Performed By: #### B CIDSUB #### [facility] [address] [place] [address] Dr. Amanda Cottrell Performed By: #### V ANCT #### [facility] [address] [place] [address] Dr. Amanda Cottrell BCIDHD2 SEE BELOW [facility] Comment on above: Result Comment: KPC- carbapenem resistance gene, mecA- methecillin resistance gene, van A/B- vancomycin resistance gene Note: Antimicrobial resitance can occur via multiple mechanisms. A Not Detected result for the [employer] antomicrobial resistance gene assays does not indicate antimicrobial susceptibility. Subculturing is required for specis identificationand susceptibility testing of isolates. Performed By: #### B CIDSUB #### [facility] [address] [place] [address] Dr. Amanda Cottrell Performed By: #### V ANCT #### [facility] [address] [address] [address] Amanda Cottrell BCIDHD3 Positive [facility] Comment on above: Performed By: #### B CIDSUB #### [facility] [address] [address] [address] Amanda Cottrell Performed By: #### V ANCT #### [facility] [address] [address] [address] Amanda Cottrell BCIDHD4 Negative [facility] Comment on above: Performed By: #### B CIDSUB #### [facility] [address] [address] [address] Amanda Cottrell Performed By: #### V ANCT #### [facility] [address] [place] [address] Dr. Amanda Cottrell BCIDHD5 YEAST Normal [facility] Comment on above: Performed By: #### B CIDSUB #### [facility] [address] [place] [address] Dr. Amanda Cottrell Performed By: #### V ANCT #### [facility] [address] [place] [address] Dr. Amanda Cottrell BCIDHD6 SEE BELOW [facility] Comment on above: Result Comment: Note : All genus and species BCID [employer] results will be verified post subculturing via Maldi-Tof MS testing methodology. Performed By: #### B CIDSUB #### [facility] [address] [address] [address] Amanda Cottrell Performed By: #### V ANCT #### [facility] [address] [place] [address] Dr. Amanda Cottrell Bottle Set: Set 2 [facility] Comment on above: Performed By: #### B CIDSUB #### [facility] [address] [place] [address] Dr. Amanda Cottrell Bottle: Aerobic [facility] Comment on above: Performed By: #### B CIDSUB #### [facility] [address] [address] [address] Amanda Cottrell Performed By: #### V ANCT #### [facility] [address] [place] [address] Dr. Amanda Cottrell Bottle: Anaerobic Normal [facility] Comment on above: Performed By: #### B CIDSUB #### [facility] [address] [place] [address] Dr. Amanda Cottrell Nathaniel albicans Not detected Normal [facility] Comment on above: Performed By: #### B CIDSUB #### [facility] [address] [place] [address] Dr. Amanda Cottrell Performed By: #### V ANCT #### [facility] [address] [place] [address] Dr. Amanda Cottrell Nathaniel glabrata Not detected Normal [facility] Comment on above: Performed By: #### B CIDSUB #### [facility] [address] [place] [address] Dr. Amanda Cottrell Performed By: #### V ANCT #### [facility] [address] [place] [address] Dr. Amanda Cottrell Nathaniel Krusei Not detected Normal [facility] Comment on above: Performed By: #### B CIDSUB #### [facility] [address] [place] [address] Dr. Amanda Cottrell Performed By: #### V ANCT #### [facility] [address] [place] [address] Dr. Amanda Cottrell Nathaniel Parapsilosis Not detected Normal [facility] Comment on above: Performed By: #### B CIDSUB #### [facility] [address] [place] [address] Dr. Amanda Cottrell Performed By: #### V ANCT #### [facility] [address] [place] [address] Dr. Amanda Cottrell Nathaniel Tropicalis Not detected Normal [facility] Comment on above: Performed By: #### B CIDSUB #### [facility] [address] [place] [address] Dr. Amanda Cottrell Performed By: #### V ANCT #### [facility] [address] [address] [address] Amanda Cottrell E. Cloacae complex Not detected Normal [facility] Comment on above: Performed By: #### B CIDSUB #### [facility] [address] [address] [address] Amanda Cottrell Performed By: #### V ANCT #### [facility] [address] [place] [address] Dr. Amanda Cottrell Enterobacteriaceae Not detected Normal [facility] Comment on above: Performed By: #### B CIDSUB #### [facility] [address] [address] [address] Amanda Cottrell Performed By: #### V ANCT #### [facility] [address] [place] [address] Dr. Amanda Cottrell Enterococcus Not detected Normal [facility] Comment on above: Performed By: #### B CIDSUB #### [facility] [address] [place] [address] Dr. Amanda Cottrell Performed By: #### V ANCT #### [facility] [address] [place] [address] Dr. Amanda Cottrell Escheria coli Not detected Normal [facility] Comment on above: Performed By: #### B CIDSUB #### [facility] [address] [place] [address] Dr. Amanda Cottrlel Performed By: #### V ANCT #### [facility] [address] [place] [address] Dr. Amanda Cottrell K. oxytoca Not detected Normal [facility] Comment on above: Performed By: #### B CIDSUB #### [facility] [address] [address] [address] Amanda Cottrell Performed By: #### V ANCT #### [facility] [address] [place] [address] Dr. Amanda Cottrell K. pneumoniae Not detected Normal [facility] Comment on above: Performed By: #### B CIDSUB #### [facility] [address] [place] [address] Dr. Amanda Cottrell Performed By: #### V ANCT #### [facility] [address] [place] [address] Dr. Amanda Cottrell KPC Resistant Gene Not Applicable Normal Th [facility] Comment on above: Performed By: #### B CIDSUB #### [facility] [address] [place] [address] Dr. Amanda Cottrell Performed By: #### V ANCT #### [facility] [address] [place] [address] Dr. Amanda Cottrell List. monocytogenes Not detected Normal [facility] Comment on above: Performed By: #### B CIDSUB #### [facility] [address] [place] [address] Dr. Amanda Cottrell Performed By: #### V ANCT #### [facility] [address] [place] [address] Dr. Amanda Cottrell mecA Resistant Gene Detected Critically abnormal [facility] Comment on above: Performed By: #### B CIDSUB #### [facility] [address] [place] [address] Dr. Amanda Cottrell Performed By: #### V ANCT #### [facility] [address] [place] [address] Dr. Amanda Cottrell Proteus Not detected Normal [facility] Comment on above: Performed By: #### B CIDSUB #### [facility] [address] [place] [address] Dr. Amanda Cottrell Performed By: #### V ANCT #### [facility] [address] [place] [address] Dr. Amanda Cottrell Pseud. aeruginosa Not detected Normal [facility] Comment on above: Performed By: #### B CIDSUB #### [facility] [address] [place] [address] Dr. Amanda Cottrell Performed By: #### V ANCT #### [facility] [address] [place] [address] Dr. Amanda Cottrell Seratia marcescens Not detected Normal [facility] Comment on above: Performed By: #### B CIDSUB #### [facility] [address] [address] [address] Amanda Cottrell Performed By: #### V ANCT #### [facility] [address] [place] [address] Dr. Amanda Cottrell Site: LEFT HAND Normal [facility] Comment on above: Performed By: #### B CIDSUB #### [facility] [address] [place] [address] Dr. Amanda Cottrell Site: L WRIST Normal [facility] Comment on above: Performed By: #### B CIDSUB #### [facility] [address] [address] [address] Amanda Cottrell Performed By: #### V ANCT #### [facility] [address] [place] [address] Dr. Amanda Cottrell Site: L HAND Normal [facility] Comment on above: Performed By: #### B CIDSUB #### [facility] [address] [place] [address] Dr. Amanda Cottrell Staph. aureus Detected Critically abnormal [facility] Comment on above: Performed By: #### B CIDSUB #### [facility] [address] [place] [address] Dr. Amanda Cottrell Performed By: #### V ANCT #### [facility] [address] [place] [address] Dr. Amanda Cottrell Staphylococcus Detected Critically abnormal [facility] Comment on above: Performed By: #### B CIDSUB #### [facility] [address] [place] [address] Dr. Amanda Cottrell Performed By: #### V ANCT #### [facility] [address] [place] [address] Dr. Amanda Cottrell Strep. agalactiae Not detected Normal [facility] Comment on above: Performed By: #### B CIDSUB #### [facility] [address] [place] [address] Dr. Amanda Cottrell Performed By: #### V ANCT #### [facility] [address] [place] [address] Dr. Amanda Cottrell Strep. pneumoniae Not detected Normal [facility] Comment on above: Performed By: #### B CIDSUB #### [facility] [address] [place] [address] Dr. Amanda Cottrell Performed By: #### V ANCT #### [facility] [address] [place] [address] Dr. Amanda Cottrell Strep. pyogenes Not detected Normal [facility] Comment on above: Performed By: #### B CIDSUB #### [facility] [address] [place] [address] Dr. Amanda Cottrell Performed By: #### V ANCT #### [facility] [address] [place] [address] Dr. Amanda Cottrell Streptococcus Not detected Normal [facility] Comment on above: Performed By: #### B CIDSUB #### [facility] [address] [place] [address] Dr. Amanda Cottrell Performed By: #### V ANCT #### [facility] [address] [place] [address] Dr. Amanda Lux/Esdras Resist. Gene Not Applicable Normal [facility] Comment on above: Performed By: #### B CIDSUB #### [facility] [address] [place] [address] Dr. Amanda Cottrell Performed By: #### V ANCT #### [facility] [address] [place] [address] Dr. Amanda Cottrell CBC AUTO DIFFon 12-11-2021 BASO # 0.0 103/ul Normal 0.0-0.1 [facility] Comment on above: Performed By: #### C BC #### [facility] [address] [place] [address] Dr. Amanda Cottrell Basophils/100 WBC (Bld) 0.2 % Normal 0.2-2.0 [facility] Comment on above: Performed By: #### C BC #### [facility] [address] [place] [address] Dr. Amanda Cottrell EO # 0.0 103/ul Normal 0.0-0.7 [facility] Comment on above: Performed By: #### C BC #### [facility] [address] [place] [address] Dr. Amanda Cottrell Eosinophils/100 WBC (Bld) 0.1 % Critically low 0.9-7.0 [facility] Comment on above: Performed By: #### C BC #### [facility] [address] [place] [address] Dr. Amanda Cottrell Erythrocyte distribution width (RBC) [Ratio] 14.2 % Normal 11.0-15.0 [facility] Comment on above: Performed By: #### C BC #### [facility] [address] [place] [address] Dr. Amanda Cottrell Hematocrit (Bld) [Volume fraction] 34.2 % Critically low 42.0-54.0 [facility] Comment on above: Performed By: #### C BC #### [facility] [address] [place] [address] Dr. Amanda Cottrell Hemoglobin (Bld) [Mass/Vol] 11.9 g/dL Critically low 14.0-18.0 [facility] Comment on above: Performed By: #### C BC #### [facility] [address] [place] [address] Dr. Amanda Cottrell IG # 0.15 10e3/ul Critically high 0.00-0.03 [facility] Comment on above: Performed By: #### C BC #### [facility] [address] [place] [address] Dr. Amanda Cottrell IG % 1.2 % Critically high 0.0-0.5 [facility] Comment on above: Performed By: #### C BC #### [facility] [address] [place] [address] Dr. Amanda Cottrell LYMPH # 0.6 103/ul Critically low 1.2-3.8 [facility] Comment on above: Performed By: #### C BC #### [facility] [address] [place] [address] Dr. Amanda Cottrell Lymphocytes/100 WBC (Bld) 4.5 % Critically low 20.5-60.0 [facility] Comment on above: Performed By: #### C BC #### [facility] [address] [place] [address] Dr. Amanda Cottrell MANUAL DIFF REQ NO Normal [facility] Comment on above: Performed By: #### C BC #### [facility] [address] [place] [address] Dr. Amanda Cottrell MCH (RBC) [Entitic mass] 28.1 pg Normal 25.9-34.0 [facility] Comment on above: Performed By: #### C BC #### [facility] [address] [place] [address] Dr. Amanda Cottrell MCHC (RBC) [Mass/Vol] 34.8 g/dL Normal 29.9-35.2 [facility] Comment on above: Performed By: #### C BC #### [facility] [address] [place] [address] Dr. Amanda Cottrell MCV (RBC) [Entitic vol] 80.9 fL Normal 80.0-94.0 [facility] Comment on above: Performed By: #### C BC #### [facility] [address] [place] [address] Dr. Amanda Cottrell MONO # 0.9 103/ul Critically high 0.3-0.8 [facility] Comment on above: Performed By: #### C BC #### [facility] [address] [place] [address] Dr. Amanda Cottrell Monocytes/100 WBC (Bld) 6.8 % Normal 1.7-12.0 [facility] Comment on above: Performed By: #### C BC #### [facility] [address] [place] [address] Dr. Amanda Cottrell NEUT # 11.0 103/ul Critically high 1.4-6.5 [facility] Comment on above: Performed By: #### C BC #### [facility] [address] [place] [address] Dr. Amanda Cottrell Neutrophils/100 WBC (Bld) 87.2 % Critically high 43.0-75.0 [facility] Comment on above: Performed By: #### C BC #### [facility] [address] [address] [address] Amanda Cottrell Platelet mean volume (Bld) [Entitic vol] 10.6 fL Normal 9.5-13.5 [facility] Comment on above: Performed By: #### C BC #### [facility] [id number] Amanda Cottrell PLT 144 103/ul Critically low 150-[address] [facility] Comment on above: Performed By: #### C BC #### [facility] [id number] Amanda Cottrell RBC 4.23 106/ul Critically low 4.70-6.10 [facility] Comment on above: Performed By: #### C BC #### [facility] [id number] Amanda Cottrell WBC 12.6 103/ul Critically high 4.0-11.0 [facility] Comment on above: Performed By: #### C BC #### [facility] [id number] Amanda Cottrell CT CHEST WO CONon [...] RAFAEL ALONSO Date: 2021-12-11 18:07 Normal [facility] CULTURE BLOODon 12-11-2021 Microscopic examination of blood, culture Specimen Comments: LEFT HAND Culture Observations: S.aureus in aerobic and anaerobic bottles.See#[id number] for ASTs. Isolate 1 Staphylococcus aureus Growth of Normal [facility] Comment on above: Performed By: #### C MELCHOR #### [facility] [address] [address] [address] Amanda Cottrell CULTURE STOOLon 12-11-2021 CULTURE STOOL Culture Observations : NO GROWTH SALMONELLA, SHIGELLA, YERSINIA, CAMPY, E.COLI 0157, OR STAPH AT 72 HRS Normal [facility] Comment on above: Performed By: #### C MELCHOR #### [facility] [address] [address] [address] Amanda Cottrell Covid-19 PCR (CVDTB)on 11-13 SARS-CoV-2 (COVID-19) RNA CHARO+probe Ql (Unsp spec) Not detected Normal NOT DETECTED [facility] Comment on above: Result Comment: This test is not yet approved or cleared by the [place] FDA. When there are no FDA-approved or cleared tests available, and other criteria are met, FDA can make tests available under an emergency access mechanism called an Emergency Use Authorization (EUA). The EUA for this test is supported by the [employer] of Health and Human Service's (HHS's) declaration [...] SARS-CoV-2. Performed By: #### C BCMAN #### [facility] [address] [place] [address] Dr. Amanda Cottrell DRUG SCREEN RAPID (URINE)on 12-11-2021 AMP Positive Abnormal NEGATIVE [facility] Comment on above: Performed By: #### D RUGRPD #### [facility] [address] [place] [address] Dr. Amanda Cottrell BAR Negative Normal NEGATIVE [facility] Comment on above: Performed By: #### D RUGRPD #### [facility] [address] [place] [address] Dr. Amanda Cottrell BUP Negative Normal NEGATIVE [facility] Comment on above: Performed By: #### D RUGRPD #### [facility] [address] [place] [address] Dr. Amanda Cottrell BZO Negative Normal NEGATIVE [facility] Comment on above: Performed By: #### D RUGRPD #### [facility] [address] [place] [address] Dr. Amanda Cottrell CARLINE Negative Normal NEGATIVE [facility] Comment on above: Performed By: #### D RUGRPD #### [facility] [address] [place] [address] Dr. Amanda Cottrell CUT-OFFS SEE BELOW Normal [facility] Comment on above: Result Comment: AMP [...] ng/mL Performed By: #### D RUGRPD #### [facility] [address] [place] [address] Dr. Amanda Cottrell DRUG CUT HEADER DRUG CLASS TEST SYSTEM CUT-OFF CONCENTRATIONS ARE FOLLOWS: Normal [facility] Comment on above: Performed By: #### D RUGRPD #### [facility] [address] [place] [address] Dr. Amanda Cottrell mAMP Positive Abnormal NEGATIVE [facility] Comment on above: Performed By: #### D RUGRPD #### [facility] [address] [place] [address] Dr. Amanda Cottrell MTD Negative Normal NEGATIVE [facility] Comment on above: Performed By: #### D RUGRPD #### [facility] [address] [place] [address] Dr. Amanda Cottrell OPI Negative Normal NEGATIVE [facility] Comment on above: Performed By: #### D RUGRPD #### [facility] [address] [place] [address] Dr. Amanda Cottrell OXY Negative Normal NEGATIVE [facility] Comment on above: Performed By: #### D RUGRPD #### [facility] [address] [place] [address] Dr. Amanda Cottrell PCP Negative Normal NEGATIVE [facility] Comment on above: Performed By: #### D RUGRPD #### [facility] [address] [place] [address] Dr. Amanda Cottrell PPX Negative Normal NEGATIVE [facility] Comment on above: Performed By: #### D RUGRPD #### [facility] [address] [place] [address] Dr. Amanda Cottrell TCA Negative Normal NEGATIVE [facility] Comment on above: Performed By: #### D RUGRPD #### [facility] [address] [place] [address] Dr. Amanda Cottrell THC Positive Abnormal NEGATIVE [facility] Comment on above: Performed By: #### D RUGRPD #### [facility] [address] [place] [address] Dr. Amanda Cottrell GI PANEL (PCR)on 12-11-2021 Adenovirus F 40/41 Not detected Normal NOT DETECTED Th [facility] Comment on above: Performed By: #### V ANCT #### [facility] [address] [place] [address] Dr. Amanda Cottrell Astrovirus Not detected Normal NOT DETECTED [facility] Comment on above: Performed By: #### V ANCT #### [facility] [address] [place] [address] Dr. Amanda Cottrell C. Diff toxin A/B Not detected Normal NOT DETECTED [facility] Comment on above: Performed By: #### V ANCT #### [facility] [address] [place] [address] Dr. Amanda Cottrell Campylobacter Not detected Normal NOT DETECTED [facility] Comment on above: Performed By: #### V ANCT #### [facility] [address] [place] [address] Dr. Amanda Cottrell Cryptosporidium Not detected Normal NOT DETECTED [facility] Comment on above: Performed By: #### V ANCT #### [facility] [address] [place] [address] Dr. Amanda Cottrell Cyclos. Cayetanensis Not detected Normal NOT DETECTED [facility] Comment on above: Performed By: #### V ANCT #### [facility] [address] [place] [address] Dr. Amanda Cottrell E. Coli O157 Not Applicable Normal Not Applicable [facility] Comment on above: Performed By: #### V ANCT #### [facility] [address] [place] [address] Dr. Amanda Cottrell E. histolytica Not detected Normal NOT DETECTED [facility] Comment on above: Performed By: #### V ANCT #### [facility] [address] [place] [address] Dr. Amanda Cottrell EAEC Not detected Normal NOT DETECTED [facility] Comment on above: Performed By: #### V ANCT #### [facility] [address] [place] [address] Dr. Amanda Cottrell EIEC Not detected Normal NOT DETECTED [facility] Comment on above: Performed By: #### V ANCT #### [facility] [address] [place] [address] Dr. Amanda Cottrell EPEC Not detected Normal NOT DETECTED [facility] Comment on above: Performed By: #### V ANCT #### [facility] [address] [place] [address] Dr. Amanda Cottrell ETEC Not detected Normal NOT DETECTED [facility] Comment on above: Performed By: #### V ANCT #### [facility] [address] [place] [address] Dr. Amanda Sy Lamblia Not detected Normal NOT DETECTED [facility] Comment on above: Performed By: #### V ANCT #### [facility] [address] [place] [address] Dr. Amanda DUQUE CONTROLS PASSED Normal [facility] Comment on above: Performed By: #### V ANCT #### [facility] [address] [place] [address] Dr. Amanda ANDREW HEADER GI PANEL BACTERIA Normal [facility] Comment on above: Performed By: #### V ANCT #### [facility] [address] [place] [address] Dr. Amanda RUIZ ECOLI GI PANEL DIARRHEAGENIC E.COLI / SHIGELLA Normal [facility] Comment on above: Performed By: #### V ANCT #### [facility] [address] [place] [address] Dr. Amanda RUIZ INFO SEE BELOW Normal [facility] Comment on above: Result Comment: EAEC - Enteroaggregative E. Coli EPEC- Enteropathogenic E. Coli ETEC- Enterotoxigenic E. Coli lt/st STEC- Shigella-like toxin-producing E. Coli stx1/stx2 EIEC- Shigella/Enteroinvasive E. Coli Performed By: #### V ANCT #### [facility] [address] [place] [address] Dr. Amanda RUIZ PARASITES GI PANEL PARASITES Normal [facility] Comment on above: Performed By: #### V ANCT #### [facility] [address] [place] [address] Dr. Amanda RUIZ VIRUS GI PANEL VIRUSES Normal [facility] Comment on above: Performed By: #### V ANCT #### [facility] [address] [place] [address] Dr. Amanda Cottrell Norovirus GI/GII Not detected Normal NOT DETECTED [facility] Comment on above: Performed By: #### V ANCT #### [facility] [address] [place] [address] Dr. Amanda Cottrell P. Shigelloides Not detected Normal NOT DETECTED [facility] Comment on above: Performed By: #### V ANCT #### [facility] [address] [place] [address] Dr. Amanda Cottrell Rotavirus A Not detected Normal NOT DETECTED [facility] Comment on above: Performed By: #### V ANCT #### [facility] [address] [place] [address] Dr. Amanda Cottrell Salmonella Not detected Normal NOT DETECTED [facility] Comment on above: Performed By: #### V ANCT #### [facility] [address] [place] [address] Dr. Amanda Cottrell Sapovirus Not detected Normal NOT DETECTED [facility] Comment on above: Performed By: #### V ANCT #### [facility] [address] [place] [address] Dr. Amanda Cottrell STEC Not detected Normal NOT DETECTED [facility] Comment on above: Performed By: #### V ANCT #### [facility] [address] [place] [address] Dr. Amanda Cottrell Vibrio Not detected Normal NOT DETECTED [facility] Comment on above: Performed By: #### V ANCT #### [facility] [address] [place] [address] Dr. Amanda Cottrell Vibrio Cholera Not detected Normal NOT DETECTED [facility] Comment on above: Performed By: #### V ANCT #### [facility] [address] [place] [address] Dr. Amanda Cottrell Y. Enterocolitica Not detected Normal NOT DETECTED [facility] Comment on above: Performed By: #### V ANCT #### [facility] [address] [place] [address] Dr. Amanda Cottrell LACTATE/LACTIC ACIDon 2021 Lactate [Moles/Vol] 1.0 mmol/L Normal 0.7-2.[address] [facility] Comment on above: Performed By: #### C BCMAN #### [facility] [address] [place] [address] Dr. Amanda Cottrell LIPASEon 12-11-2021 Lipase [Catalytic activity/Vol] 97.0 U/L Normal 23.0-300.0 [facility] Comment on above: Performed By: #### C MP, LIPA #### [facility] [address] [place] [address] Dr. Amanda Cottrell OCC BLD IMMUNO SCREENon 11-13 OCCULT BLOOD Positive Abnormal NEGATIVE [facility] Comment on above: Performed By: #### C MELCHOR #### [facility] [address] [place] [address] Dr. Amanda Cottrell PROF 14(COMP METB)on 022 Albumin [Mass/Vol] 2.0 g/dL Critically low 3.5-5.0 [facility] Comment on above: Performed By: #### C MP, LIPA #### [facility] [address] [place] [address] Dr. Amanda Cottrell Albumin/Globulin [Mass ratio] 0.5 {ratio} Normal [facility] Comment on above: Performed By: #### C MP, LIPA #### [facility] [address] [place] [address] Dr. Amanda Cottrell ALP [Catalytic activity/Vol] 91 U/L Normal 38-126 [facility] Comment on above: Performed By: #### C MP, LIPA #### [facility] [address] [place] [address] Dr. Amanda Cottrell ALT [Catalytic activity/Vol] 36 U/L Normal 21-72 [facility] Comment on above: Performed By: #### C MP, LIPA #### [facility] [address] [place] [address] Dr. Amanda Cottrell Anion gap [Moles/Vol] 9.6 mmol/L Normal [facility] Comment on above: Performed By: #### C MP, LIPA #### [facility] [address] [place] [address] Dr. Amanda Cottrell AST [Catalytic activity/Vol] 22 U/L Normal 17-59 [facility] Comment on above: Performed By: #### C MP, LIPA #### [facility] [address] [place] [address] Dr. Amanda Cottrell Bilirubin [Mass/Vol] 0.8 mg/dL Normal 0.2-1.3 [facility] Comment on above: Performed By: #### C MP, LIPA #### [facility] [address] [place] [address] Dr. Amanda Cottrell Calcium [Mass/Vol] 7.8 mg/dL Critically low 8.4-10.2 Th [facility] Comment on above: Performed By: #### C MP, LIPA #### [facility] [address] [place] [address] Dr. Amanda Cottrell Chloride [Moles/Vol] 93 mmol/L Critically low 98-107 [facility] Comment on above: Performed By: #### C MP, LIPA #### [facility] [address] [place] [address] Dr. Amanda Cottrell CO2 [Moles/Vol] 24.4 mmol/L Normal 22.0-30.0 [facility] Comment on above: Performed By: #### C MP, LIPA #### [facility] [address] [place] [address] Dr. Amanda Cottrell Creatinine [Mass/Vol] 0.71 mg/dL Normal 0.66-1.25 [facility] Comment on above: Performed By: #### C MP, LIPA #### [facility] [address] [place] [address] Dr. Amanda Cottrell EGFR-AF MICRONESIAN >60 Normal >=60 [facility] Comment on above: Performed By: #### C MP, LIPA #### [facility] [address] [place] [address] Dr. Amanda Cottrell EGFR-NON AF MICRONESIAN >60 Normal >=60 [facility] Comment on above: Performed By: #### C MP, LIPA #### [facility] [address] [address] [address] Amanda Cottrell Globulin (S) [Mass/Vol] 4.3 g/dL Normal [facility] Comment on above: Performed By: #### C MP, LIPA #### [facility] [address] [place] [address] Dr. Amanda Cottrell Glucose [Mass/Vol] 122 mg/dL Critically high 74-106 [facility] Comment on above: Performed By: #### C EMILEE, LIPA #### [facility] [address] [place] [address] Dr. Amanda Cottrell Potassium [Moles/Vol] 2.9 mmol/L Critically low 3.4-5.0 [facility] Comment on above: Performed By: #### C MP, LIPA #### [facility] [address] [place] [address] Dr. Amanda Cottrell Protein [Mass/Vol] 6.3 g/dL Normal 6.1-8.2 [facility] Comment on above: Performed By: #### C MP, LIPA #### [facility] [address] [place] [address] Dr. Amadna Cottrell Sodium [Moles/Vol] 122 mmol/L Critically low 137-145 [facility] Comment on above: Performed By: #### C MP, LIPA #### [facility] [address] [place] [address] Dr. Amanda Cottrell Urea nitrogen [Mass/Vol] 11.0 mg/dL Normal 9.0-20.0 [facility] Comment on above: Performed By: #### C MP, LIPA #### [facility] [address] [place] [address] Dr. Amanda Cottrell Urea nitrogen/Creatinine [Mass ratio] 15.0 mg/mg Normal [facility] Comment on above: Performed By: #### C MP, LIPA #### [facility] [address] [place], [place] [address] Dr. Amanda Cottrell XR ABD FLAT UP_PA [...] by: SAMUEL GREENE Date: 2021-12-11 17:09 Normal [facility] Basic Metab w/rfx MGon 10-23 (cont.) Normal [facility] Comment on above: Result Comment: Aver age GFR for 30-39 years old: 107 mL/min/1.73sq m Chronic Kidney Disease: <60 mL/min/1.73sq m Kidney failure: <15 mL/min/1.73sq m eGFR calculated using average adult body mass. Additional eGFR calculator available at: [email or web address] Performed By: #### C P, CDP #### [facility] [address] [address] Head Sawyer Automatic: Joelle Parker MD Anion gap [Moles/Vol] 11 mmol/L Normal 9-17 [facility] Comment on above: Performed By: #### C P, CDP #### [facility] [address] [address] Head Sawyer Automatic: Joelle Parker MD BUN/CRE Ratio 16 Normal - [facility] Comment on above: Performed By: #### C P, CDP #### [facility] [address] [place], [place] [id number] [employer] Sawyer Automatic: Joelle Parker MD Calcium [Mass/Vol] 9.5 mg/dL Normal 8.6-10.4 [facility] Comment on above: Performed By: #### C P, CDP #### [facility] [address] [place], [place] [id number] Head Sawyer Automatic: Joelle Parker MD Chloride [Moles/Vol] 100 mmol/L Normal 98-107 [facility] Comment on above: Performed By: #### C P, CDP #### [facility] [address] [place], [place] [id number] Head Sawyer Automatic: Joelle Parker MD CO2 [Moles/Vol] 26 mmol/L Normal 20-31 [facility] Comment on above: Performed By: #### C P, CDP #### [facility] [address] [place], [place] [id number] Head Sawyer Automatic: Joelle Parker MD Creatinine [Mass/Vol] 0.95 mg/dL Normal 0.70-1.20 [facility] Comment on above: Performed By: #### C P, CDP #### [facility] [address] [place], [place] [id number] Head Sawyer Automatic: Joelle Parker MD GFR, Amer >60 Normal >60 [facility] Comment on above: Performed By: #### C P, CDP #### [facility] [address] [place], [place] [id number] Head Sawyer Automatic: Joelle Parker MD GFR,non Amer >60 Normal >60 [facility] Comment on above: Performed By: #### C P, CDP #### [facility] [address] [place], [place] [id number] Head Sawyer Automatic: Joelle Parker MD Glucose [Mass/Vol] 92 mg/dL Normal 70-99 [facility] Comment on above: Performed By: #### C P, CDP #### [facility] [address] [place], [place] [id number] Head Sawyer Automatic: Joelle Parker MD Potassium [Moles/Vol] 3.7 mmol/L Normal 3.7-5.3 [facility] Comment on above: Performed By: #### C P, CDP #### [facility] [address] [place], [place] [id number] Head Sawyer Automatic: Joelle Parker MD Sodium [Moles/Vol] 137 mmol/L Normal 135-144 [facility] Comment on above: Performed By: #### C P, CDP #### [facility] [address] [place], [place] [id number] Head Sawyer Automatic: Joelle Parker MD Staging: Normal [facility] Comment on above: Result Comment: Stag e 1: Some kidney damage normal GFR Stage 2: Mild kidney damage GFR 60-89 Stage 3: Moderate kidney damage GFR 30-59 Stage 4: Severe kidney damage GFR 15-29 Stage 5: Severe kidney damage GFR <15 ESRD - chronic treatment by dialysis or transplant Performed By: #### C P, CDP #### [address] [place], [place] [id number] Head Sawyer Automatic: Joelle Parker MD Urea nitrogen [Mass/Vol] 15 mg/dL Normal 6-20 [facility] Comment on above: Performed By: #### C P, CDP #### [facility] [address] [place], [place] [id number] Head Sawyer Automatic: Joelle Parker MD CBC with Diffon 10-23-2021 Abs. Basophil 0.05 k/uL Normal 0.00-0.20 [facility] Comment on above: Performed By: #### C P, CDP #### [facility] [address] [place], [place] [id number] Head Sawyer Automatic: Joelle Parker MD Abs.Imm.Granulocyte <0.03 Normal 0.00-0.30 [facility] Comment on above: Performed By: #### C P, CDP #### [address] [place], [facility]83 Head Sawyer Automatic: Joelle Parker MD Abs.Neutrophil (Seg) 4.12 k/uL Normal 1.50-8.10 [facility] [place] Comment on above: Performed By: #### C P, CDP #### [address] [place], [facility]83 Head Sawyer Automatic: Joelle Parker MD Basophils/100 WBC (Bld) 1 % Normal 0-2 [facility] Comment on above: Performed By: #### C P, CDP #### [address] [place], [place] [address] Head Sawyer Automatic: Joelle Parker MD Eosinophils (Bld) [#/Vol] 0.74 10*3/uL High 0.00-0.44 [facility] Comment on above: Performed By: #### C P, CDP #### [address] [place], [place] [address] Head Sawyer Automatic: Joelle Parker MD Eosinophils/100 WBC (Bld) 10 % High 1-4 [facility] Comment on above: Performed By: #### C P, CDP #### [address] [place], [place] [address] Head Sawyer Automatic: Joelle Parker MD Erythrocyte distribution width (RBC) [Ratio] 13.8 % Normal 11.8-14.4 [facility] Comment on above: Performed By: #### C P, CDP #### [address] [place], [facility]83 Head Sawyer Automatic: Joelle Parker MD Hematocrit (Bld) [Volume fraction] 41.9 % Normal 40.7-50.3 [facility] Comment on above: Performed By: #### C P, CDP #### [facility] [address] [place], [place] [id number] Head Sawyer Automatic: Joelle Parker MD Hemoglobin (Bld) [Mass/Vol] 13.6 g/dL Normal 13.0-17.0 [facility] Comment on above: Performed By: #### C P, CDP #### [facility] [address] [place], [facility]83 Head Sawyer Automatic: Joelle Parker MD Immature granulocytes/100 WBC (Bld) 0 % Normal 0 [facility] Comment on above: Performed By: #### C P, CDP #### [address] [place] [address] Head Sawyer Automatic: Joelle Parker MD Lymphocytes (Bld) [#/Vol] 1.50 10*3/uL Normal 1.10-3.70 [facility] Comment on above: Performed By: #### C P, CDP #### [address] [place], [facility]83 Head Sawyer Automatic: Joelle Parker MD Lymphocytes/100 WBC (Bld) 21 % Low 24-43 [facility] Comment on above: Performed By: #### C P, CDP #### [address] [place] [address] Head Sawyer Automatic: Joelle Parker MD MCH (RBC) [Entitic mass] 28.6 pg Normal 25.2-33.5 [facility] Comment on above: Performed By: #### C P, CDP #### [address] [place] [address] Head Sawyer Automatic: Joelle Parker MD MCHC (RBC) [Mass/Vol] 32.5 g/dL Normal 28.4-34.8 [facility] Comment on above: Performed By: #### C P, CDP #### [address] [place] [address] Head Sawyer Automatic: Joelle Parker MD MCV (RBC) [Entitic vol] 88.2 fL Normal 82.6-102.9 [facility] Comment on above: Performed By: #### C P, CDP #### [address] [place], [place] 2485483 Head Sawyer Automatic: Joelle Parker MD Monocytes (Bld) [#/Vol] 0.68 10*3/uL Normal 0.10-1.20 [facility] Comment on above: Performed By: #### C P, CDP #### [address] [place] [address] Head Sawyer Automatic: Joelle Parker MD Monocytes/100 WBC (Bld) 10 % Normal 3-12 [facility] Comment on above: Performed By: #### C P, CDP #### [address] [place], [facility]83 Head Sawyer Automatic: Joelle Parker MD Neutrophil (Seg) 58 % Normal 36-65 [facility] Comment on above: Performed By: #### C P, CDP #### [address] [place], [place] [id number] Head Sawyer Automatic: Joelle Parker MD NRBC Automated 0.0 per 100 WBC Normal 0.0 [facility] Comment on above: Performed By: #### C P, CDP #### [address] [place], [facility]83 Head Sawyer Automatic: Joelle Parker MD Platelet mean volume (Bld) [Entitic vol] 9.1 fL Normal 8.1-13.5 [facility] Comment on above: Performed By: #### C P, CDP #### [address] [place], [place] [id number] Head Sawyer Automatic: Joelle Parker MD Platelets (Bld) [#/Vol] 214 10*3/uL Normal 138-453 [facility] Comment on above: Performed By: #### C P, CDP #### [facility] [address] [place], [place] [id number] Head Sawyer Automatic: Joelle Parker MD RBC (Bld) [#/Vol] 4.75 10*6/uL Normal 4.21-5.77 [facility] Comment on above: Performed By: #### C P, CDP #### [facility] [address] [place], [place] [id number] Head Sawyer Automatic: Joelle Parker MD WBC (Bld) [#/Vol] 7.1 10*3/uL Normal 3.5-11.3 [facility] Comment on above: Performed By: #### C P, CDP #### [facility] [address] [place], [facility]83 Head Sawyer Automatic: Joelle Parker MD Auto Diff Performed NOT REPORTED Normal [facility] Comment on above: Performed By: #### C P, CDP #### [facility] [address] [place], [place] 55[address]83 Head Sawyer Automatic: Joelle Parker MD Platelet Comment NOT REPORTED Normal [facility] Comment on above: Performed By: #### C P, CDP #### [facility] [address] [place] [address] Dr[address] [place], [place] 120[address]183 Head Sawyer Automatic: Joelle Parker MD RBC morphology finding Nom (Bld) NOT REPORTED Normal [facility] Comment on above: Performed By: #### C P, CDP #### [facility] [address] [place], [place] [id number] Head Sawyer Automatic: Joelle Parker MD WBC Morphology NOT REPORTED Normal [facility] Comment on above: Performed By: #### C P, CDP #### [facility] [address] [place], [place] 240[address]83 Head Sawyer Automatic: Joelle Parker MD Ethanol Alcoholon 10-23-2021 Ethanol [Mass/Vol] mg/dL Normal <10 [facility] Comment on above: Performed By: #### A LCB #### [facility] [address] [place] [address] Head Sawyer Automatic: Joelle Parker MD Ethanol percent <0.010 Normal <0.010 [facility] Comment on above: Performed By: #### A LCB #### [facility] [address] [place] [address] Head Sawyer Automatic: Joelle Parker MD Troponinon 10-23-2021 Troponin, High Sens <6 Normal 0-22 [facility] Comment on above: Result Comment: High Sensitivity Troponin values cannot be compared with other Troponin methodologies. Patients with high levels of Biotin oral intake (i.e >5mg/day) may have falsely decreased Troponin levels. Samples collected within 8 hours of biotin intake may require additional information for diagnosis. Performed By: #### C P, CDP #### [facility] [address] [place] [address] Head Sawyer Automatic: Joelle Parker MD Troponin Interp. NOT REPORTED Normal [facility] Comment on above: Performed By: #### C P, CDP #### [facility] [address] [place] [address] Head Sawyer Automatic: Joelle Parker MD Troponin T NOT REPORTED Normal <0.03 [facility] Comment on above: Performed By: #### C P, CDP #### [facility] [address] [place] [address] Head Sawyer Automatic: Joelle Parker MD XR CHEST PORTABLEon 10-23-20 [...] Addy Gates MD 10/23/21 Final result Normal [facility] Basic Metabolic Panel w/ Ref rebecca to MGOrdered By: Yareli Jonas on 05-29-2021 Anion gap [Moles/Vol] 11 mmol/L 9 - 17 mmol/L [employer] Phone: Calcium [Mass/Vol] 9.5 mg/dL 8.6 - 10. 4 mg/dL [employer] Phone: Chloride [Moles/Vol] 104 mmol/L 98 - 10 7 mmol/L [employer] Phone: CO2 [Moles/Vol] 27 mmol/L 20 - 31 mmol/L [employer] Phone: Creatinine [Mass/Vol] 0.9 mg/dL 0.70 - 1.20 mg/dL [employer] Phone: GFR >60 >60 mL/min [employer] Phone: GFR Non- >60 >60 mL/min [employer] Phone: Glucose [Mass/Vol] 91 mg/dL 70 - 99 mg/dL [employer] Phone: Potassium [Moles/Vol] 3.8 mmol/L 3.7 - 5.3 mmol/L [employer] Phone: Sodium [Moles/Vol] 142 mmol/L 135 - 144 mmol/L [employer] Phone: Urea nitrogen (BldV) [Mass/Vol] 15 mg/dL 6 - 20 mg/dL [employer] Phone: Urea nitrogen/Creatinine (Bld) [Mass ratio] 17 [employer] Phone: Brain Natriuretic PeptideOrd ered By: Yareli Jonas on 05-29-2021 BNP Interpretation Pro-BNP Reference Range: [employer] Phone: Comment on above: Rule Out: <300 Juares Zone: Age <50 300-450 Age 50-75 300-900 Age >75 300-1800 Usually represents mild to moderate HF but other cardiopulmonary causes cannot be ruled out. Rule In: Age <50 >450 Age 50-75 >900 Age >75 >1800 Natriuretic peptide B (Bld) [Mass/Vol] 34 pg/mL <300 [employer] Phone: Comment on above: Pro-BNP results zora ot be compared to BNP results. [employer] Phone: CBC Auto DifferentialOrdered By: Yareli Jonas on 05-29-2021 Absolute Eos # 0.17 [employer] [facility] Work Phone: Absolute Immature Granulocyte <0.03 [employer] Phone: Absolute Lymph # 0.98 Low [facility] Work Phone: Absolute Dyer # 0.56 [facility] Work Phone: Basophils (Bld) [#/Vol] 0.03 10*3/uL [employer] Phone: Basophils/100 WBC (Bld) 1 % 0 - 2 % [facility] Phone: Differential Type NOT REPORTED [employer] Phone: Eosinophils/100 WBC (Bld) 3 % 1 - 4 % [facility] Phone: Hematocrit (Bld) [Volume fraction] 38.8 % Low 40.7 - 50.3 % [facility] Phone: Hemoglobin.gastrointesti nal spec 1 Ql (Stl) 12.6 g/dL Low 13.0 - 17.0 g/dL [employer] Phone: Immature granulocytes/100 WBC (Bld) 0 % 0 [employer] Phone: Interpretation and review of laboratory results Abnormal [employer] Phone: Lymphocytes/100 WBC (Bld) 17 % Low 24 - 43 % [employer] Phone: MCH (RBC) [Entitic mass] 28.8 pg 25. 2 - 33.5 pg [employer] Phone: MCHC (RBC) [Mass/Vol] 32.5 g/dL 28.4 - 34.8 g/dL [employer] Phone: MCV (RBC) [Entitic vol] 88.6 fL 82.6 - 102.9 fL [employer] Phone: Monocytes/100 WBC (Bld) 10 % 3 - 12 % M [employer] Phone: NRBC Automated 0.0 0.0 per 100 WBC [employer] Phone: Platelet distribution width (Bld) [Ratio] 13.3 % 11.8 - 14.4 % [employer] Phone: Platelet Estimate NOT REPORTED [employer] Phone: Platelet mean volume (Bld) [Entitic vol] 8.7 fL 8.1 - 13.5 fL [employer] Phone: Platelets (Bld) [#/Vol] 193 10*3/uL [employer] Phone: RBC (Bld) [#/Vol] 4.38 10*6/uL 4.21 - 5.7 7 m/uL [employer] Phone: RBC (Bld) [#/Vol] NOT REPORTED [employer] Phone: Segmented neutrophils/100 WBC (Bld) 69 % High 36 - 65 % [employer] Phone: Segs Absolute 3.91 [employer] Work Phone: WBC (Bld) [#/Vol] 5.7 10*3/uL [employer] Phone: WBC (Bld) [#/Vol] NOT REPORTED [employer] Phone: [employer] Phone: CT CHEST ABDOMEN PELVIS W CO NTRASTOrdered By: Yareli Jonas on 05-29-2021 1. No acute visceral or osseous abnormality. 2. No acute infective or inflammatory process. 3. A few bilateral inguinal lymph nodes up to 13 mm in maximal dimension likely reactive. Please correlate with physical exam. [employer] Phone: EXAMINATION: CT OF THE CHEST, ABDOMEN, [...] COMPARISON: None HISTORY: ORDERING SYSTEM PROVIDED HISTORY: [facility] lower abdominal pain TECHNOLOGIST PROVIDED HISTORY: [facility] lower abdominal pain Decision Support Exception - [...] superficial soft tissues show no significant abnormalities. [employer] Work Phone: Kirt, pn Incoming Radiant Results From [facility] [facility] - 05/29/2021 2:41 PM EDT EXAMINATION: CT [...] COMPARISON: None HISTORY: ORDERING SYSTEM PROVIDED HISTORY: [facility] lower abdominal pain TECHNOLOGIST PROVIDED HISTORY: [facility] lower abdominal pain Decision Support Exception - [...] likely reactive. Please correlate with physical exam. [employer] Phone: [employer] Phone: D-Dimer, QuantitativeOrdered By: Yareli Jonas on 05-29-2021 D-Dimer, Quant 0.70 High [employer] Phone: Comment on above: When combined with [...] Interpretation and review of laboratory results Abnormal [employer] Phone: [employer] Phone: Hepatic Function PanelOrdere d By: Yareli Jonas on 05-29-2021 Albumin [Mass/Vol] 3.7 g/dL 3.5 - 5.2 g/dL [employer] Phone: Albumin/Globulin [Mass ratio] 0.9 {ratio} Low [employer] Phone: ALP (Bld) [Catalytic activity/Vol] 88 U/L 40 - 129 U/L [employer] Phone: ALT [Catalytic activity/Vol] 54 U/L High 5 - 41 U/L [employer] Phone: AST [Catalytic activity/Vol] 32 U/L <40 [employer] Phone: Bilirubin [Mass/Vol] 0.54 mg/dL 0.3 - 1 .2 mg/dL [employer] Phone: Bilirubin, Indirect CANNOT BE CALCULATED 0.00 - 1.00 mg/dL [employer] Phone: Bilirubin.indirect [Mass/Vol] mg/dL <0.31 mg/dL [employer] Phone: Free PSA/Total PSA [Mass fraction] 7.7 g/dL 6.4 - 8.3 g/dL [employer] Phone: Globulin NOT REPORTED 1.5 - 3.8 g/dL [employer] Phone: Interpretation and review of laboratory results Abnormal [employer] Phone: Laboratory - Chemistry and C hemistry - challengeOrdered By: Yareli Jonas on 05-29-2021 GFR/1.73 sq M.predicted MDRD (S/P/Bld) [Vol rate/Area] [employer] Phone: Comment on above: Average GFR for 30-3 9 years old: 107 mL/min/1.73sq m Chronic Kidney Disease: <60 mL/min/1.73sq m Kidney failure: <15 mL/min/1.73sq m eGFR calculated using average adult body mass. Additional eGFR calculator available at: http://www.[employer]/multiple_crcl_2012.htm Stage 1: Some kidney damage normal GFR Stage 2: Mild kidney damage GFR 60-89 Stage 3: Moderate kidney damage GFR 30-59 Stage 4: Severe kidney damage GFR 15-29 Stage 5: Severe kidney damage GFR <15 ESRD - chronic treatment by dialysis or transplant LipaseOrdered By: Ellyn on 05-29-2021 Lipase [Catalytic activity/Vol] 13 U/L 13 - 60 U/L [employer] Phone: No Panel InformationOrdered By: Yareli Jonas on 05-29-2021 No acute intracrania l abnormality. No acute fracture dislocation involving cervical spine. [employer] Phone: EXAMINATION: CT OF THE HEAD WITHOUT [...] appear grossly unremarkable. Lung apices are clear. [employer] Phone: Kirt, Mhpn Incoming Radiant Results From [facility] - 05/29/2021 2:15 PM EDT EXAMINATION: CT [...] No acute fracture dislocation involving cervical spine. [employer] Phone: [employer] Phone: [employer] Phone: Protime-INROrdered By: Duane Jonas on 05-29-2021 INR Coag (Bld) [Relative time] 1.1 {INR} [employer] Phone: Comment on above: Non-therapeutic Range: INR = 0.9-1.2 Therapeutic Range: Moderate Anticoagulant Intensity: INR = 2.0-3.0 High Anticoagulant Intensity: INR = 2.5-3.5 PT Coag (PPP) [Time] 13.9 s [facility] [employer] Work Phone: [facility] Work Phone: TroponinOrdered By: Yareli coles on 05-29-2021 Troponin Interp NOT REPORTED [facility] Work Phone: Troponin T NOT REPORTED <0.03 ng/mL [facility] Work Phone: Troponin, High Sensitivity 13 ng/L 0 - 22 ng/L [facility] [employer] Phone: Comment on above: High Sensitivity Troponin values cannot be compared with other Troponin methodologies. Patients with high levels of Biotin oral intake (i.e >5mg/day) may have falsely decreased Troponin levels. Samples collected within 8 hours of biotin intake may require additional information for diagnosis. [employer] Work Phone: Urinalysis, reflex to micros copicOrdered By: Yareli Jonas on 05-29-2021 Bilirubin Urine Negative NEGATIVE [facility] Work Phone: Color, UA YELLOW YELLOW [facility] [employer] Work Phone: Glucose, Ur Negative NEGATIVE [facility] [employer] Phone: Ketones Ql (U) Negative NEGATIVE [facility] Work Phone: Leukocyte esterase Test strip Ql (U) Negative NEGATIVE [facility] [employer] Work Phone: Nitrite, Urine Negative NEGATIVE [facility] Work Phone: pH, UA 8.0 [facility] [employer] Phone: Protein, UA Negative NEGATIVE [facility] [employer] Phone: Specific [place], UA 1.010 [facility] [employer] Work Phone: Turbidity UA CLEAR CLEAR [facility] [employer] Work Phone: Urinalysis Comments NOT REPORTED [facility] [employer] Work Phone: Urine Hgb Negative NEGATIVE [facility] [employer] Phone: Urobilinogen, Urine Normal Normal [facility] [employer] Phone: [facility] [employer] Phone: VL DUP LOWER EXTREMITY VENOU S BILATERALOrdered By: Yareli Jonas on 05-29-2021 [employer], pn Incoming Cardio Results From [facility] - 05/29/2021 4:05 PM EDT [facility] Vascular Lower Extremities DVT Study Procedure Patient Name COTY Date of Study 05/29/2021 TIP Plata Date of 1980 Gender Male Age 41 year(s) Race Room Number 06 Corporate ID [id number] # Patient Acct [id number] # MR # [id number] Customer Support Agent Erinn Ray RVT Interpreting Physician Mckayla Baltazar MD Referring Referring Physician YARELI JONAS Nurse Practitioner Additional Comments Results were faxed to ER 05/29/2021 @ [facility]. Procedure Type of Study: Veins: Lower Extremities [...] +---- ------+ -+---- (more content not included)... [employer] Phone: [employer] Phone: Basic Metabolic Panelon 0 Anion gap [Moles/Vol] 9 mmol/L 9 - 17 mmol/L [place] Bun/Cre Ratio 12 [place] Calcium [Mass/Vol] 9.0 mg/dL 8.6 - 10. 4 mg/dL [place] Chloride [Moles/Vol] 99 mmol/L 98 - 10 7 mmol/L [place] CO2 [Moles/Vol] 27 mmol/L 20 - 31 mmol/L [place] Creatinine [Mass/Vol] 0.93 mg/dL 0.7 - 1.2 mg/dL [place] GFR >60 >60 mL/min [place] GFR Non- >60 >60 mL/min [place] Glucose [Mass/Vol] 112 mg/dL High 70 - 99 mg/dL [place] Interpretation and review of laboratory results Abnormal [place] Potassium [Moles/Vol] 3.9 mmol/L 3.7 - 5.3 mmol/L [place] Sodium [Moles/Vol] 135 mmol/L 135 - 144 mmol/L [place] Urea nitrogen [Mass/Vol] 11 mg/dL 6 - 20 mg/d L [place] Blood Gas, Arterialon 2020 Guille Test PASS [place] aPTT Coag (Bld) [Time] 37.0 s Me [place] Carboxyhemoglobin NOT REPORTED 0 - 5 % [place] FIO2 28 [place] HCO3, Arterial 25.7 mmol/L 22 - 26 mmol/L [place] Methemoglobin NOT REPORTED 0 - 1.9 % [place] Mode NOT REPORTED [place] Negative Base Excess, Art NOT REPORTED 0 - 2 mmol/L [place] NOTIFICATION NOT REPORTED [place] NOTIFICATION TIME NOT REPORTED [place] O2 Device/Flow/% Cannula [place], [place] Comment on above: 2 Oxygen saturation in Blood 97.1 % 95 - 98 % [place] Oxyhemoglobin NOT REPORTED 95 - 98 % [facility] José Miguel [place] pCO2, Art, Temp Adj NOT REPORTED [place] pCO2, Arterial 44.5 [place] Peep/Cpap NOT REPORTED [place] pH, Art, Temp Adj NOT REPORTED [place] pH, Arterial 7.380 [place] pO2, Art, Temp Adj NOT REPORTED [place] pO2, Arterial 94.4 [place], [place] Positive Base Excess, Art 0.3 mmol/L 0 - 2 mmol/L [place] PSV NOT REPORTED [place] Pt. Position SUPINE [place] Sample Site Right Radial Artery [place], [place] Set Rate NOT REPORTED [place] Text for Respiratory NOT REPORTED [place], [place] Total Hb NOT REPORTED 12 - 16 g/dl [place], [place] Total Rate NOT REPORTED [place] VT NOT REPORTED [place] Brain Natriuretic Peptideon 12-16-2020 Natriuretic peptide B (Bld) [Mass/Vol] Pro-BNP Reference Range: [place] Comment on above: Rule Out: <300 Juares Zone: Age <50 300-450 Age 50-75 300-900 Age >75 300-1800 Usually represents mild to moderate HF but other cardiopulmonary causes cannot be ruled out. Rule In: Age <50 >450 Age 50-75 >900 Age >75 >1800 Natriuretic peptide B (Bld) [Mass/Vol] 31 pg/mL <300 [place] Comment on above: Pro-BNP results zora ot be compared to BNP results. CBC Auto Differentialon 02-0 Basophils (Bld) [#/Vol] 0.00 10*3/uL [place] Basophils/100 WBC (Bld) 0 % 0 - 2 % [place], [place] Differential Type NOT REPORTED [place] Eosinophils (Bld) [#/Vol] 0.09 10*3/uL [place] Eosinophils/100 WBC (Bld) 2 % 1 - 4 % [place] Erythrocyte distribution width (RBC) [Ratio] 14.9 % High 11.8 - 14.4 % [place] Hematocrit (Bld) [Volume fraction] 37.8 % Low 40.7 - 50.3 % [place] Hemoglobin (Bld) [Mass/Vol] 12.4 g/dL Low 13 - 17 g/dL [place] Immature granulocytes (Bld) [#/Vol] 0.00 10*3/uL [place] Immature granulocytes (Bld) [#/Vol] 0 % 0 [place] Interpretation and review of laboratory results Abnormal [place] Lymphocytes (Bld) [#/Vol] 0.61 10*3/uL Low [place] Lymphocytes/100 WBC (Bld) 13 % Low 24 - 43 % [place] MCH (RBC) [Entitic mass] 28.7 pg 25. 2 - 33.5 pg [place] MCHC (RBC) [Mass/Vol] 32.8 g/dL 28.4 - 34.8 g/dL [place] MCV (RBC) [Entitic vol] 87.5 fL 82.6 - 102.9 fL [place] Monocytes (Bld) [#/Vol] 1.03 10*3/uL [place] Monocytes/100 WBC (Bld) 22 % High 3 - 12 % [place] Morphology Adis (Bld) [Interp] Normal [place] Platelet mean volume (Bld) [Entitic vol] 8.6 fL 8.1 - 13.5 fL [place] Platelets (Bld) [#/Vol] 195 10*3/uL [place] Platelets (Bld) [#/Vol] NOT REPORTED [place] RBC (Bld) [#/Vol] 4.32 10*6/uL 4.21 - 5.7 7 m/uL [place] RBC morphology finding Nom (Bld) NOT REPORTED [place] Segmented neutrophils/100 WBC (Bld) 63 % 36 - 65 % [place] Segs Absolute 2.97 [place] WBC (Bld) [#/Vol] 4.7 10*3/uL [place] WBC (Bld) [#/Vol] 0.0 10*3/uL 0.0 per 10 0 WBC [place] WBC Morphology NOT REPORTED [place] COVID-19, PCRon 12-16-2020 Interpretation and review of laboratory results Abnormal [place] SARS-CoV-2, Rapid DETECTED Abnormal Not Detected [place], [place] Comment on above: Rapid NAAT: The [...] this assay. Fact sheet for Healthcare Providers: https://www.fda.gov/media/601288/download Fact sheet for Patients: https://www.fda.gov/media/350261/download Methodology: Isothermal Nucleic Acid Amplification Results reported to the appropriate Health Department Source .NASOPHARYNGEAL SWAB [place], [place] CHEST PULMONARY EMBOLISM W CONTRASTon 12-16-2020 Lymphocytes (Bld) [#/Vol] No evidence of pulmonary embolism or acute aortic disease. Mild mediastinal lymphadenopathy. Bilateral lower lobe infiltrates/atelectat ic changes but no evidence of pleural disease. [place] EXAMINATION: CTA OF THE CHEST 12/16/2020 [...] No acute bone or soft tissue abnormality. [facility] [place], [place] Incoming Radiant Results From [facility] [facility] - 12/16/2020 11:32 AM EST EXAMINATION: CTA [...] changes but no evidence of pleural disease. [facility] [employer] Drug screen multi urineon Amphetamine Screen, Ur Positive Abnormal NEGATIVE [facility] [employer] [place] Barbiturate Screen, Ur Negative NEGATIVE [place] Benzodiazepine Screen, Urine Negative NEGATIVE [place] Buprenorphine Urine Negative NEGATIVE [place] Cannabinoid Scrn, Ur Positive Abnormal NEGATIVE [place], [place] Cocaine Metabolite, Urine Positive Abnormal NEGATIVE [place] Interpretation and review of laboratory results Abnormal [place] MDMA, Urine NOT REPORTED NEGATIVE [facility] [place] Methadone Screen, Urine Negative NEGATIVE [place] Methamphetamine, Urine Positive Abnormal NEGATIVE [place] Opiates, Urine Positive Abnormal NEGATIVE [place], [place] Oxycodone Screen, Ur Negative NEGATIVE [place], [place] Phencyclidine, Urine Negative NEGATIVE [place] Propoxyphene, Urine Negative NEGATIVE [place] Test Information NOT REPORTED [place] Tricyclic Antidepressants, Urine Negative NEGATIVE [place], [place] Comment on above: Drug screen results are to be used for medical purposes only. All positive results are unconfirmed. Testing for employment or legal uses should be sent to a reference laboratory for confirmation. Ethanolon 12-16-2020 Ethanol [Mass/Vol] mg/dL <10 mg/dL [place] Ethanol percent <0.010 <0.010 % [place] Hepatic Function Panelon Albumin [Mass/Vol] 3.9 g/dL 3.5 - 5.2 g/dL [place] Albumin/Globulin [Mass ratio] 1.1 {ratio} [place] ALP [Catalytic activity/Vol] 91 U/L 40 - 129 U/L [place] ALT [Catalytic activity/Vol] 52 U/L High 5 - 41 U/L [place] AST [Catalytic activity/Vol] 39 U/L <40 [place] Bilirubin Ql (U) 0.26 mg/dL Low 0.3 - 1.2 mg/dL [place] Bilirubin, Indirect CANNOT BE CALCULATED 0 - 1 mg/dL [place] Bilirubin.direct [Mass/Vol] mg/dL <0.31 mg/dL [place] Globulin (S) [Mass/Vol] NOT REPORTED 1.5 - 3.8 g/dL [place] Interpretation and review of laboratory results Abnormal [place] Protein [Mass/Vol] 7.5 g/dL 6.4 - 8.3 g/dL [place] Metabolic Panelon 12-16-2020 GFR/1.73 sq M predicted among non-blacks MDRD (S/P/Bld) [Vol rate/Area] [place] Comment on above: Average GFR for 30-3 9 years old: 107 mL/min/1.73sq m Chronic Kidney Disease: <60 mL/min/1.73sq m Kidney failure: <15 mL/min/1.73sq m eGFR calculated using average adult body mass. Additional eGFR calculator available at: http://www.Z[employer]/multiple_crcl_2012.htm Stage 1: Some kidney damage normal GFR Stage 2: Mild kidney damage GFR 60-89 Stage 3: Moderate kidney damage GFR 30-59 Stage 4: Severe kidney damage GFR 15-29 Stage 5: Severe kidney damage GFR <15 ESRD - chronic treatment by dialysis or transplant Otheron 12-16-2020 SARS-CoV-2 [place] Troponinon 12-16-2020 Troponin I.cardiac [Mass/Vol] NOT REPORTED [place] Troponin T.cardiac [Mass/Vol] NOT REPORTED <0.03 ng/mL [place] Troponin, High Sensitivity 6 ng/L 0 - 22 ng/L [place] Comment on above: High Sensitivity Troponin values cannot be compared with other Troponin methodologies. Patients with high levels of Biotin oral intake (i.e >5mg/day) may have falsely decreased Troponin levels. Samples collected within 8 hours of biotin intake may require additional information for diagnosis. Troponin I.cardiac [Mass/Vol] NOT REPORTED [place] Troponin T.cardiac [Mass/Vol] NOT REPORTED <0.03 ng/mL [place] Troponin, High Sensitivity 6 ng/L 0 - 22 ng/L [place] Comment on above: High Sensitivity Troponin values cannot be compared with other Troponin methodologies. Patients with high levels of Biotin oral intake (i.e >5mg/day) may have falsely decreased Troponin levels. Samples collected within 8 hours of biotin intake may require additional information for diagnosis. XR CHEST PORTABLEon 12-16-19 [place], [facility] Incoming Radiant Results From [facility] - 12/16/2020 7:18 AM EST EXAMINATION: ONE [...] viral pneumonia. Pulmonary edema cannot be excluded. [place] EXAMINATION: ONE XRA Y VIEW OF THE CHEST 12/16/2020 6:50 am COMPARISON: March 16, 2016 HISTORY: ORDERING SYSTEM PROVIDED HISTORY: Cp TECHNOLOGIST PROVIDED HISTORY: Cp Chest pain FINDINGS: Subtle hazy perihilar and bibasilar opacities. Cardiomediastinal within normal limits. Trace left pleural effusion cannot be excluded. No pneumothorax or subdiaphragmatic free air. No acute osseous abnormality identified. [place] Subtle multifocal bilateral opacities concerning for developing multifocal or viral pneumonia. Pulmonary edema cannot be excluded. [place] Discharge [id number] Discharge Profile2 Discharge Orders: Anticipated Discharge Date: Anticipated Discharge [id number] Anticipated Discharge Time09:25 Activity: activity as tolerated. May shower. Diet: Dietregular Provider FINAL REVIEW of Orders: Final Review: Final Review of Medication Reconciliation and Orders Completedby Physician Reviewing ProviderTimmy Hayward MD at 29-Apr-2020 09:29:52 Appointments: Follow-Up Appointment 01: Physician/Dept/Negra Guerrero Reason for ReferralCOPD Call to Schedule in2 weeks Phone [phone] Follow-Up Appointment 02: Physician/Dept/Negra ePCRossana Call to Schedule in1 week Electronic Signatures: Timmy Hayward) (Signed 29-Apr-2020 09:29) Authored: Discharge Orders, Provider FINAL REVIEW of Orders, Appointments, Gold Form - Shredder Tender Summary Last Updated: 29-Apr-2020 09:29 by Timmy Hayward) Normal [facility] History and Physical - Laureen Sorenson 04-29-2020 [...] Objective: Objective Information: Objective Information T PRBPSpO2 [id number]/649 4% Date/Time04/29 13: 13: 13: 13: 13:09 Range(36.8C - 37.8C ) (100 - 106 ) (18 - 18 ) (116 - 132 )/ (57 - 64 ) (94% - 94% ) Highest temp of 37.8 C was recorded at 04/28 19:46 Pain reported at 04/29 7:58: 0 = None ---- Intake and Output ----- Mn/Dy/Year TimeIntakeOutputNet Apr 29, 2020 2:00 [id number] Apr 29, 2020 6:00 [id number] Apr 28, 2020 10:00 [id number] The Intake and Output Totals for the last 24 hours are: IntakeOutputNet [id number] Date: Weight/Scale Type: 29-Apr-2020 04:5284.3 kg 28-Apr-2020 [...] Updated: 29-Apr-2020 19:14 by Saul Guerrero) Normal [facility] BASIC METABOLIC PANELon 06- Anion gap [Moles/Vol] 13 mmol/L Normal 10 - 20 [facility] Comment on above: Performed By: #### B MP ####[id number] [place] [address] Calcium [Mass/Vol] 9.0 mg/dL Normal 8.6 - 10.3 [facility] Comment on above: Performed By: #### B MP ####[address] [address] Chloride [Moles/Vol] 105 mmol/L Normal 98 - 107 [facility] Comment on above: Performed By: #### B MP ####[address] [place] [address] Creatinine [Mass/Vol] 0.84 mg/dL Normal 0.50 - 1.30 [facility] Comment on above: Performed By: #### B MP ####[address] [place] [address] GFR- AM. >60 Normal >60 [facility] Comment on above: Result Comment: CALC ULATIONS OF ESTIMATED GFR ARE PERFORMED USING THE MDRD STUDY EQUATION FOR THE IDMS-TRACEABLE CREATININE METHODS. CLIN CHEM 2007;53:766-72 Performed By: #### B MP ####[address] [place] [address] GFR-NON AM. >60 Normal >60 [facility] Comment on above: Performed By: #### B MP ####[address] [place] [address] Glucose [Mass/Vol] 173 mg/dL High 74 - 99 [facility] Comment on above: Performed By: #### B MP ####[address] [place] [address] HCO3 (Bld) [Moles/Vol] 25 mmol/L Normal 21 - 32 [facility] Comment on above: Performed By: #### B MP ####[facility] [place] [address] Potassium [Moles/Vol] 4.3 mmol/L Normal 3.5 - 5.3 [facility] Comment on above: Performed By: #### B MP ####[address] [place] [address] Sodium [Moles/Vol] 139 mmol/L Normal 136 - 145 [facility] Comment on above: Performed By: #### B MP ####[address] [place] [address] Urea nitrogen [Mass/Vol] 11 mg/dL Normal 6 - 23 [facility] Comment on above: Performed By: #### B MP ####[address] [address] [employer] 04-28-2020 Erythrocyte distribution width (RBC) [Ratio] 13.8 % Normal 11.5 - 14.5 [facility] Comment on above: Performed By: #### C BC ####[address] [address] Hematocrit (Bld) [Volume fraction] 41.3 % Normal 41.0 - 52.0 [facility] Comment on above: Performed By: #### C BC ####[address] [address] Hemoglobin (Bld) [Mass/Vol] 13.8 g/dL Normal 13.5 - 17.5 [facility] Comment on above: Performed By: #### C BC ####[address] [address] MCHC (RBC) [Mass/Vol] 33.4 g/dL Normal 32.0 - 36.0 [facility] Comment on above: Performed By: #### C BC ####[address] [address] MCV (RBC) [Entitic vol] 91 fL Normal 80 - 100 [facility] Comment on above: Performed By: #### C BC ####[facility] [place] [address] Platelets (Bld) [#/Vol] 239 10*3/uL Normal 150 - 450 [facility] Comment on above: Performed By: #### C BC ####[facility] [place] [address] RBC (Bld) [#/Vol] 4.52 x10E12/L Normal 4.50 - 5.90 [facility] Comment on above: Performed By: #### C BC ####[facility] [place] [address] WBC (Bld) [#/Vol] 8.4 10*3/uL Normal 4.4 - 11.3 [facility] Comment on above: Performed By: #### C BC ####[facility] [place] [address] Discharge Planning Nynd0je 0 04-28-2020 Discharge Planning Note2 Discharge Plann ing: Anticipated Discharge [id number] Discharge Planning 04/27/2020 patient admit to micu [...] TCC 04/28/20 1245 Social Work Note THE BEVERAGE INSPECTION MACHINE TENDER HAS BEEN NOTIFIED OF THE PT'S SELF PAY STATUS. THE PT HAS BEEN ASSESSED BY THE HUMAN ARC ON 04/27/20. THE PT HAS BEEN DEEMED FINANCIALLY ELIGIBLE FOR MEDICAID APPLICATION WITH VERBAL CONSENT OBTAINED TO ALLOW HUMAN [employer] AUTHORIZED CORPORATE ADMINISTRATOR IN THE MEDICAID APPLICATION PROCESS. Luann BOB, [facility] 04/28/20 1400 Social Work Note THE BEVERAGE INSPECTION MACHINE TENDER MET THIS DATE WITH THE PT BEING [...] STATES THAT HE HAS BEEN OUT OF GROUP HOME SINCE THE BEGINNING OF THE YEAR AND [...] OWN . THE PT ALSO ACCEPTED THE [facility]. THE BEVERAGE INSPECTION MACHINE TENDER WILL CONTINUE TO REMAIN AVAILABLE SUPPORTIVELY. Luann BOB, [facility] 04/29/2020 @ 1112 [place] Vessel Pilot Note: SWer is assissting with D/C plan and Meds to Bed fill. SWer is going to fill scripts through [facility] and bill to the department accordingly. [...] going instructions. CTRN. Assessment: Discharge Planning Assessment [id number] Stated Reason for Admissionsob(1) Arrived [place] (1) Lives Withfriend(s)(1) Living Arrangementsnursing home; house(1) Resource/Environmenta l Concernsnone(1) Anticipated Transition [place](1) Services Anticipated at Transitionnon(1) Nursing Checklist: Lines/Cathetersremove d/appropriate for next level of care Discharge Med Rec Reconciled with Jj Patient has Prescriptionsyes DME equipment orderedyes Transportation for Discharge Confirmedyes Discharge Instructions Reviewed WithPatient Discharge Instructions Outcomeverbalize recall/understanding Discharge Documentation: Discharge/Transfer Date/[id number] 13:13 Discharge Modewheelchair Transportation Methodtransportation service Valuables/Medications /Belongings Returnedyes Final DispositionHome Electronic Signatures: Leilani Valencia (FRINGE WEAVER) (Signed 28-Apr-2020 11:45) Authored: Discharge Planning Note2 [...] Profile - Adult v2 27-Apr-2020 11:37 Normal [facility] History and Physical - Criti hemalatha Rowlandon [...] Objective: Objective Information: Objective Information T PRBPSpO2 [id number]/669 1% Date/Time04/28 14:18 16: 16: 16: 16:08 [...] None ---- Intake and Output ----- Mn/Dy/[facility] Apr 28, 2020 2:00 [id number] Apr 28, 2020 6:00 [id number] Apr 27, 2020 10:00 [id number] The Intake and Output Totals for the last 24 hours are: [facility] [id number] Date: Weight/Scale Type: 28-Apr-2020 06:0081.3 kg / [...] 239 RDW-CV 13.8 Culture, Blood Trending View [id number] 08:33:00 27-Apr-2020 07:49:00 Culture, BloodNEGATIVE TO DATE, [...] ECGs available Confirmed by SWAPNA SHAW MD ([id number]) on 04/27/2020 7:31:04 PM Electrocardiogram 12 Lead [...] Last Updated: 28-Apr-2020 17:00 by Saul Guerrero) [facility] ARTERIAL FULL PANELon 2019 BASE EXCESS-BLOOD -1.7 mmol/L Normal -2.0 - 3.0 [facility] Comment on above: Performed By: #### A FPA3 #### [address] [address] CALCIUM,IONIZED 1.21 mmol/L Normal 1.10 - 1.33 [facility] Comment on above: Performed By: #### A FPA3 #### [address] [address] Chloride [Moles/Vol] 103 mmol/L Normal 98 - 107 [facility] Comment on above: Performed By: #### A FPA3 #### [address] [address] FIO2 28 % Normal [facility] Comment on above: Performed By: #### A FPA3 #### [address] [address] Glucose [Mass/Vol] 113 mg/dL High 74 - 99 [facility] Comment on above: Performed By: #### A FPA3 #### [address] [address] Hematocrit (Bld) [Volume fraction] 49.0 % Normal 41.0 - 52.0 [facility] Comment on above: Performed By: #### A FPA3 #### [address] [address] HGB,CALCULATED 16.5 g/dL Normal 13.5 - 17.5 [facility] Comment on above: Performed By: #### A FPA3 #### [address] [address] Lactate [Moles/Vol] 1.4 mmol/L Normal 0.4 - 2.0 [facility] Comment on above: Performed By: #### A FPA3 #### [address] [address] Oxygen (Bld) [Partial pressure] 95 mm[Hg] Normal 85 - 95 [facility] Comment on above: Performed By: #### A FPA3 #### [address] [address] PCO2 41 mmHg Normal 38 - 42 [facility] Comment on above: Performed By: #### A FPA3 #### [address] [address] pH (Bld) 7.37 [pH] Low 7.38 - 7.42 [facility] Comment on above: Performed By: #### A FPA3 #### [address] [address] Potassium [Moles/Vol] 3.8 mmol/L Normal 3.5 - 5.3 [facility] Comment on above: Performed By: #### A FPA3 #### [address] [address] RBC (Bld) [#/Vol] 23.4 mmol/L Normal 22.0 - 26.0 [facility] Comment on above: Performed By: #### A FPA3 #### [address] [address] SO2 97 % Normal 94 - 100 [facility] Comment on above: Performed By: #### A FPA3 #### [address] [address] Sodium [Moles/Vol] 137 mmol/L Normal 136 - 145 [facility] Comment on above: Performed By: #### A FPA3 #### [address] [address] Admission Risk Screen - Adul ton 04-27-2020 [...] risk with low risk for associated injury [place] Safety InterventionsWDL *orient to call system *instruct [...] Communicatenone Learning Preferencesaudio Cultural Considerationsnone Developmental Considerationsnone Confucianist Considerationsnone Learning Assessment (Other Learner): Other learner [...] Spiritual Screen: Are there any cultural, spiritual, shinto practices/values/need s that are important for us to knowno CAGE: Is this an injured patient at a Trauma Center ([facility]/[place]/[facility]/[place]): no Vaccinations: Vaccination - Influenza Vaccination Screen: Is it flu season (between and February 21)No Vaccination - Pneumonia Vaccination Screen: Patient has received a previous pneumonia vaccine:no/unknown... Immunocompetent persons with underlying chronic conditions or reside in rodent exterminator care facilitiesnone of these conditions Persons with [...] From Triage - ED 27-Apr-2020 07:38 Normal [facility] BLOOD CULTURE, BACTERIALon 0 04-27-2020 Cholesterol [Mass/Vol] PATIENT: TIP ANSARI LOCATION: [address] [id number] : 84 AGE: SEX: M ORDERED BY: MELLISA WITT SOURCE: Blood COLLECTED: 04/27/20 08:33 ANTIBIOTICS AT LIU.: RECEIVED : 04/27/20 18:00 SITE: R E S U L T S BLOOD CULTURE, BACTERIAL FINAL 05/02/20 19:42 No Growth at 1 days No Growth at 2 days No Growth at 3 days No Growth at 4 days NO GROWTH - FINAL REPORT Normal [facility] Comment on above: Performed By: #### P TINR #### [address] [address] Cholesterol [Mass/Vol] PATIENT: TIP ANSARI LOCATION: [address]#: [id number] : 84 AGE: SEX: M ORDERED BY: MELLISA WITT SOURCE: Blood COLLECTED: 04/27/20 07:49 ANTIBIOTICS AT LIU.: RECEIVED : 04/27/20 18:00 SITE: R E S U L T S BLOOD CULTURE, BACTERIAL FINAL 05/02/20 19:42 No Growth at 1 days No Growth at 2 days No Growth at 3 days No Growth at 4 days NO GROWTH - FINAL REPORT Normal [facility] Comment on above: Performed By: #### P TINR #### [id number] BNPon 04-27-2020 Natriuretic peptide B (Bld) [Mass/Vol] 19 pg/mL Normal 0 - 99 [facility] Comment on above: Result Comment: . <1 00 pg/mL - Heart failure unlikely 100-299 pg/mL - Intermediate probability of acute heart . failure exacerbation. Correlate with clinical . context and patient history. >=300 pg/mL - Heart Failure likely. Correlate with clinical . context and patient history. BNP testing is performed using different testing methodology at [facility] than at other [facility]. Direct result comparisons should only be made within the same method. Performed By: #### B NP2 #### [address] [address] CBC AND DIFFERENTIALon 04-27 % AUTOMATED IMMATURE GRAN 0.2 % Normal 0.0 - 0.9 [facility] Comment on above: Result Comment: [place] ture Granulocyte Count (IG) includes promyelocytes, myelocytes and metamyelocytes but does not include bands. Percent differential counts (%) should be interpreted in the context of the absolute cell counts (cells/L). Performed By: #### C BCDF #### [address] [address] Basophils (Bld) [#/Vol] 0.06 10*3/uL Normal 0.00 - 0.1 0 [facility] Comment on above: Performed By: #### C BCDF #### [address] [address] Basophils/100 WBC (Bld) 0.6 % Normal 0.0 - 2.0 [facility] Comment on above: Performed By: #### C BCDF #### [address] [address] Eosinophils (Bld) [#/Vol] 0.87 10*3/uL High 0.00 - 0.70 [facility] Comment on above: Performed By: #### C BCDF #### [address] [address] Eosinophils/100 WBC (Bld) 8.6 % Normal 0.0 - 6.0 [facility] Comment on above: Performed By: #### C BCDF #### [address] [address] Erythrocyte distribution width (RBC) [Ratio] 13.6 % Normal 11.5 - 14.5 [facility] Comment on above: Performed By: #### C BCDF #### [address] [address] Hematocrit (Bld) [Volume fraction] 49.2 % Normal 41.0 - 52.0 [facility] Comment on above: Performed By: #### C BCDF #### [address] [address] Hemoglobin (Bld) [Mass/Vol] 16.7 g/dL Normal 13.5 - 17.5 [facility] Comment on above: Performed By: #### C BCDF #### [address] [address] Lymphocytes (Bld) [#/Vol] 2.10 10*3/uL Normal 1.20 - 4.80 [facility] Comment on above: Performed By: #### C BCDF #### [address] [address] Lymphocytes/100 WBC (Bld) 20.6 % Normal 13.0 - 44.0 [facility] Comment on above: Performed By: #### C BCDF #### [address] [address] MCHC (RBC) [Mass/Vol] 33.9 g/dL Normal 32.0 - 36.0 [facility] Comment on above: Performed By: #### C BCDF #### [address] [address] MCV (RBC) [Entitic vol] 91 fL Normal 80 - 100 [facility] Comment on above: Performed By: #### C BCDF #### [address] [address] Monocytes (Bld) [#/Vol] 0.88 10*3/uL Normal 0.10 - 1.0 0 [facility] Comment on above: Performed By: #### C BCDF #### [address] [address] Monocytes/100 WBC (Bld) 8.7 % Normal 2.0 - 10.0 [facility] Comment on above: Performed By: #### C BCDF #### [address] [address] Neutrophils (Bld) [#/Vol] 6.24 10*3/uL Normal 1.20 - 7.70 [facility] Comment on above: Performed By: #### C BCDF #### [address] [address] Neutrophils/100 WBC (Bld) 61.3 % Normal 40.0 - 80.0 [facility] Comment on above: Performed By: #### C BCDF #### [address] [address] Platelets (Bld) [#/Vol] 256 10*3/uL Normal 150 - 450 [facility] Comment on above: Performed By: #### C BCDF #### [address] [address] RBC (Bld) [#/Vol] 5.41 x10E12/L Normal 4.50 - 5.90 [facility] Comment on above: Performed By: #### C BCDF #### [address] [address] WBC (Bld) [#/Vol] 10.2 10*3/uL Normal 4.4 - 11.3 [facility] Comment on above: Performed By: #### C BCDF #### [address] [address] CHEST 1 VIEWon 04-27-2020 CHEST 1 VIEW Patient Name: TIP ANSARI STUDY: CHEST 1 VIEW; 04/27/2020 8:25 am INDICATION: SOB. COMPARISON: None. ACCESSION NUMBER(S): [id number] ORDERING CLINICIAN: MELLISA WITT FINDINGS: CARDIOMEDIASTINAL SILHOUETTE AND VASCULATURE: Cardiac size: Within normal limits. Aortic shadow: Within normal limits considering portable technique Mediastinal contours: Within normal limits considering portable technique Pulmonary vasculature: Within normal limits without definite congestion LUNGS: Appears to be mild hyperinflation lungs particular at the left upper chest indicating WASTE HAND D. The lungs are clear without discrete infiltrate. ABDOMEN AND OTHER FINDINGS: No remarkable upper abdominal findings. BONES: No acute osseous changes. IMPRESSION: 1. Mild COPD. Electronically signed by: VINCE OROZCO MD Normal [facility] COMPREHENSIVE PANELon 2019 Albumin [Mass/Vol] 4.2 g/dL Normal 3.4 - 5.0 [facility] Comment on above: Performed By: #### C MP #### [address] [address] ALP [Catalytic activity/Vol] 65 U/L Normal 33 - 120 [facility] Comment on above: Performed By: #### C MP #### [address] [address] ALT [Catalytic activity/Vol] 60 U/L High 10 - 52 [facility] Comment on above: Result Comment: Susanne ents treated with Sulfasalazine may generate falsely decreased results for ALT. Performed By: #### C MP #### [address] [address] Anion gap [Moles/Vol] 17 mmol/L Normal 10 - 20 [facility] Comment on above: Performed By: #### C MP #### [address] [address] AST [Catalytic activity/Vol] 36 U/L Normal 9 - 39 [facility] Comment on above: Performed By: #### C MP #### [address] [address] Bilirubin [Mass/Vol] 0.8 mg/dL Normal 0.0 - 1.2 [facility] Comment on above: Performed By: #### C MP #### [address] [address] Calcium [Mass/Vol] 9.5 mg/dL Normal 8.6 - 10.3 [facility] Comment on above: Performed By: #### C MP #### [address] [address] Chloride [Moles/Vol] 102 mmol/L Normal 98 - 107 [facility] Comment on above: Performed By: #### C MP #### [address] [address] Creatinine [Mass/Vol] 0.92 mg/dL Normal 0.50 - 1.30 [facility] Comment on above: Performed By: #### C MP #### [address] [address] GFR- AM. >60 Normal >60 [facility] Comment on above: Result Comment: CALC ULATIONS OF ESTIMATED GFR ARE PERFORMED USING THE MDRD STUDY EQUATION FOR THE IDMS-TRACEABLE CREATININE METHODS. CLIN CHEM 2007;53:766-72 Performed By: #### C MP #### [address] [address] GFR-NON AM. >60 Normal >60 [facility] Comment on above: Performed By: #### C MP #### [address] [address] Glucose [Mass/Vol] 118 mg/dL High 74 - 99 [facility] Comment on above: Performed By: #### C MP #### [address] [address] HCO3 (Bld) [Moles/Vol] 25 mmol/L Normal 21 - 32 [facility] Comment on above: Performed By: #### C MP #### [address] [address] Potassium [Moles/Vol] 4.0 mmol/L Normal 3.5 - 5.3 [facility] Comment on above: Performed By: #### C MP #### [address] [address] Protein [Mass/Vol] 7.8 g/dL Normal 6.4 - 8.2 [facility] Comment on above: Performed By: #### C MP #### [address] [address] Sodium [Moles/Vol] 140 mmol/L Normal 136 - 145 [facility] Comment on above: Performed By: #### C MP #### [address] [address] Urea nitrogen [Mass/Vol] 6 mg/dL Normal 6 - 23 [facility] Comment on above: Performed By: #### C MP #### [address] [address] COOX PANEL, ARTERIALon 04-27 GUILLE'S TEST[COLLATERAL CIRCULATION] Yes Normal [facility] Comment on above: Performed By: #### C OOXA #### [address] [address] Performed By: #### A FPA3 #### [address] [address] DEOXY HGB 3.0 % Normal 0.0 - 5.0 [facility] Comment on above: Performed By: #### C OOXA #### [place] [address] Hemoglobin (Bld) [Mass/Vol] 1.1 % Normal [facility] Comment on above: Result Comment: REF VALUES NONSMOKERS 0.5-1.5% SMOKERS 0.5-10.0% Performed By: #### C OOXA #### [place] [address] Hemoglobin (Bld) [Mass/Vol] 16.5 g/dL Normal 13.5 - 17.5 [facility] Comment on above: Performed By: #### C OOXA #### [place] [address] MET HGB 0.6 % Normal 0.0 - 1.5 [facility] Comment on above: Performed By: #### C OOXA #### [place] [address] OXY HGB 95.3 % Normal 94.0 - 98.0 [facility] Comment on above: Performed By: #### C OOXA #### [place] [address] CORONAVIRUS 2019 BY PCRon CORONAVIRUS 2019,PCR NOT DETECTED Normal Not Detected [facility] Comment on above: Result Comment: This assay is designed to detect the RdRp gene of SARS-CoV-2 via nucleic acid amplification. A Not Detected result does not preclude COVID-19 infection since the adequacy of sample collection and/or low viral burden may result in presence of viral nucleic acids below the clinical sensitivity of this test method. Fact sheet for providers: www.fda.gov/media/177462/download Fact sheet for patients: www.fda.gov/media/582045/download This test has received FDA Emergency Use Authorization (EUA) and has been verified by [facility] ([facility]). This test is only authorized for the duration of time that circumstances exist to justify the authorization of the emergency use of in vitro diagnostic tests for the detection of SARS-CoV-2 virus and/or diagnosis of COVID-19 infection under section 564(b)(1) of the Act, 21 U.S.C. 360bbb-3(b)(1), unless the authorization is terminated or revoked sooner. [facility] is certified under CLIA-88 as qualified to perform high complexity testing. Testing is performed in the [facility] laboratory located at [address] [place] [address]. Performed By: #### C OV19 #### [place] [address] Lab Specimen Source Nasal, Nasopharyngeal Normal [facility] Comment on above: Performed By: #### C OV19 #### [place] [address] History and Physical - Criti hemalatha Kashif [...] Objective: Objective Information: Objective Information T PRBPSpO2 [id number]/809 5% Date/Time04/27 7: 11: 11: 11: 11:35 [...] Blood Gas Results 04/27/2020 08:20 pO295 pH7.37 nNY077 SO297 Base Excess-1.7 Hmkguobmbbb04.4 I have reviewed these laboratory results: Culture, Blood Trending View [id number] 08:33:00 27-Apr-2020 07:49:00 Culture, BloodNEGATIVE TO DATE, [...] Updated: 27-Apr-2020 21:32 by Saul Guerrero) Normal [facility] LACTATEon 04-27-2020 Lactate [Moles/Vol] 1.6 mmol/L Normal 0.4 - 2.0 [facility] Comment on above: Result Comment: Jane puncture immediately after or during the administration of Metamizole may lead to falsely low results. Testing should be performed immediately prior to Metamizole dosing. Performed By: #### L ACT ####[facility] [place] [address] PT/INRon 04-27-2020 INR Coag (PPP) [Relative time] 1.1 {INR} Normal 0.9 - 1.1 [facility] Comment on above: Performed By: #### P TINR #### [address] [address] PT Coag (PPP) [Time] 13.2 s Normal 10.1 - 13.3 [facility] Comment on above: Result Comment: Note new reference range as of 04/05/2020. Performed By: #### P TINR #### [address] [address] Patient Profile - Adult v2on 04-27-2020 Patient Profile - Adult v2 Profile: Initial Info: How to be Addressednick Spoken Language PreferredEnglish Source of Informationpatient Are you currently using the Personal Electronic Health Record or Metabolonno Stated Reason for Admissionsob Limitations on Visitors/Phone Callsnone Wants Family/Rep Notified of Admissionno Notify PCPdo not notify PCP Informed of Patient Visiting Rightsyes Arrived Frombovey Employment Statusemployed Patient Belongingsremains with patient Patient Belongings Remaining with Patientcash/credit card; cell phone/electronics; clothing Medications Brought to Hospitalno General Health: Weight in kg80.7 kilogram(s) Weight in eec030.9 pound(s) Height in feet6 feet Height in inches1 inch(es) Height in cm185.4 centimeter(s) BMI (kg/m2)23.477 square meter Weight Methodactual (measured) Scale Typebed Height Methodstated [facility] Based Care: How would you like to [...] home; house Resource/Environmenta l Concernsnone Anticipated Transition [facility] Services Anticipated at Transitionnone Significant IndicatorsComplete Information Review: Allergies, Home Meds and Significant Events have been Reviewed and Verified with Patient/Familyyes ALLERGY, INTOLERANCE, ADVERSE EVENT: Allergies: penicillin: Drug, Unknown, Active Electronic Signatures: Sowmya Cristobal (ANSELMO) (Signed 27-Apr-2020 11:41) Authored: Profile, Additional Information Last Updated: 27-Apr-2020 11:41 by Sowmya Cristobal (ANSELMO) [facility] Provider Note - ED v2on 04-11 Provider [...] SIGNS: T PRBP SpO2O2(LPM) %FiO2 Method 27-Apr-2020 07:38:[id number] /108 91 room air, no respiratory support [...] Case is discussed with Dr. Guerrero the architectural coating finisher, who kindly agrees to except patient onto [...] From Triage - ED 27-Apr-2020 07:38 Normal [facility] TROPONIN Ion 04-27-2020 Troponin I.cardiac [Mass/Vol] ng/mL Normal 0.00 - 0.03 [facility] Comment on above: Result Comment: LESS THAN [...] is performed using different testing methodology at [facility] than at other [facility]. Direct result comparisons should only be made within the same method. Performed By: #### T ROP2 #### [address] [address] Triage - EDon 04-27-2020 Triage - ED [...] BMI (kg/m2): 25.019 Calculated BSA (m2) 2.10 Taylor Coma Scale: Best Eye Response: (E4) spontaneous Best Motor Response: (M6) obeys commands Best Verbal Response: (V5) oriented Taylor Score: 15 Cough lasting greater than 3 [...] 27-Apr-2020 07:58 by Abundio Ayon (MONCHO) Normal [facility] Vital Signs Date Time Vital Sign Value Performing Clinician Jagjit pryor 01-30-2024 17:17-0400 Body mass index (BMI) [Ratio] 24.41 kg/m2 Stu Lisa MD Work Phone: [facility] 01-30-2024 17:17-0400 Body temperature 98.4 [degF] Stu Lisa MD Work Phone: [facility] [employer] 01-30-2024 17:17-0400 Body weight 83.92 kg Stu Lisa MD Work Phone: [facility] 01-30-2024 17:17-0400 Diastolic blood pressure 77 mm[Hg] Stu Lisa MD Work Phone: [facility] 01-30-2024 17:17-0400 Heart rate 91 /min Stu Lisa MD Work Phone: [facility] [employer] 01-30-2024 17:17-0400 Respiratory rate 16 /min Stu Lisa MD Work Phone: [facility] [employer] 01-30-2024 17:17-0400 SaO2% (BldA) [Mass fraction] 97 % Stu Lisa MD Work Phone: [facility] 01-30-2024 17:17-0400 Systolic blood pressure 106 mm[Hg] Stu Lisa MD Work Phone: [facility] 07-09-2022 13:30-0400 Body temperature 98.4 [degF] Marisol Andrea MD Work Phone (unformatted): [phone] [facility] [employer] 07-09-2022 13:30-0400 Diastolic blood pressure 71 mm[Hg] Marisol Andrea MD Work Phone (unformatted): [phone] [facility] 07-09-2022 13:30-0400 Heart rate 84 /min Marisol Andrea MD Work Phone (unformatted): [phone] [facility] 07-09-2022 13:30-0400 Respiratory rate 18 /min Marisol Andrea MD Work Phone (unformatted): [phone] [facility] 07-09-2022 13:30-0400 SaO2% (BldA) [Mass fraction] 97 % Marisol Andrea MD Work Phone (unformatted): [phone] [facility] 07-09-2022 13:30-0400 Systolic blood pressure 109 mm[Hg] Marisol Andrea MD Work Phone (unformatted): [phone] [facility] [employer] 07-02-2022 14:07-0400 Body temperature 99 [degF] aMrisol Andrea MD Work Phone (unformatted): [phone] [facility] 07-02-2022 14:07-0400 Diastolic blood pressure 84 mm[Hg] Marisol Andrea MD Work Phone (unformatted): [phone] [facility] 07-02-2022 14:07-0400 Heart rate 101 /min Marisol Andrea MD Work Phone (unformatted): [phone] [facility] 07-02-2022 14:07-0400 Respiratory rate 18 /min Marisol Andrea MD Work Phone (unformatted): [phone] [facility] 07-02-2022 14:07-0400 SaO2% (BldA) [Mass fraction] 96 % Marisol Andrea MD Work Phone (unformatted): [phone] [facility] 07-02-2022 14:07-0400 Systolic blood pressure 123 mm[Hg] Marisol Andrea MD Work Phone (unformatted): [phone] [facility] 06-21-2022 06:35-0400 Body temperature 97.5 [degF] Mick Martin MD Work Phone: [facility] 06-21-2022 06:35-0400 Diastolic blood pressure 74 mm[Hg] Mick Martin MD Work Phone: [facility] 06-21-2022 06:35-0400 Heart rate 91 /min Mick Martin MD Work Phone: [facility] 06-21-2022 06:35-0400 Respiratory rate 23 /min Mick Martin MD Work Phone: [facility] 06-21-2022 06:35-0400 SaO2% (BldA) [Mass fraction] 93 % Mick Martin MD Work Phone: [employer] 06-21-2022 06:35-0400 Systolic blood pressure 109 mm[Hg] Mick Martin MD Work Phone: [facility] 06-20-2022 05:41-0400 Body mass index (BMI) [Ratio] 24.9 kg/m2 Mick Martin MD Work Phone: [facility] 06-20-2022 05:41-0400 Body weight 85.6 kg Mick Martin MD Work Phone: [employer] 06-18-2022 06:00-0400 Body height 185.4 cm Mick Martin MD Work Phone: [employer] 05-08-2022 07:30-0400 Body temperature 98.6 [degF] Johann Rodriguez DO Work Phone: [employer] 05-08-2022 07:30-0400 Diastolic blood pressure 83 mm[Hg] Johann Rodriguez DO Work Phone: [employer] 05-08-2022 07:30-0400 Heart rate 104 /min Johann Rodriguez DO Work Phone: [employer] 05-08-2022 07:30-0400 Respiratory rate 16 /min Johann Rodriguez DO Work Phone: [employer] 05-08-2022 07:30-0400 SaO2% (BldA) [Mass fraction] 99 % Johann Rodriguez DO Work Phone: [employer] 05-08-2022 07:30-0400 Systolic blood pressure 116 mm[Hg] Johann Rodriguez DO Work Phone: [employer] 05-07-2022 05:05-0400 Body mass index (BMI) [Ratio] 21.45 kg/m2 Johann Rodriguez DO Work Phone: [employer] 05-07-2022 05:05-0400 Body weight 73.75 kg Johann Rodriguez DO Work Phone: [facility] 05-06-2022 04:45-0400 Body height 185.4 cm Johann Rodriguez DO Work Phone: [facility] 05-06-2022 02:30-0400 Diastolic blood pressure 85 mm[Hg] Mallika Jose DO Work Phone: [facility] 05-06-2022 02:30-0400 Heart rate 89 /min Mallika Garcia DO Work Phone: [facility] 05-06-2022 02:30-0400 Respiratory rate 16 /min Mallika Garcia DO Work Phone: [facility] 05-06-2022 02:30-0400 SaO2% (BldA) [Mass fraction] 97 % Mallika Garcia DO Work Phone: [facility] 05-06-2022 02:30-0400 Systolic blood pressure 116 mm[Hg] Mallika Garcia DO Work Phone: [facility] 05-05-2022 20:17-0400 Body height 185.4 cm Mallika Jose DO Work Phone: [facility] 05-05-2022 20:17-0400 Body mass index (BMI) [Ratio] 23.75 kg/m2 Mallika Garcia DO Work Phone: [facility] 05-05-2022 20:17-0400 Body temperature 99 [degF] Mallika Garcia DO Work Phone: [facility] 05-05-2022 20:17-0400 Body weight 81.65 kg Mallika Jose DO Work Phone: [facility] 01-30-2022 14:15-0400 Heart rate 113 /min Florencia Canela MD Work Phone: [employer] 01-30-2022 14:15-0400 Respiratory rate 24 /min Florencia Canela MD Work Phone: [employer] 01-30-2022 14:15-0400 SaO2% (BldA) [Mass fraction] 95 % Florencia Canela MD Work Phone: [employer] 01-30-2022 11:20-0400 Body temperature 98.2 [degF] Florencia Canela MD Work Phone: [employer] 01-30-2022 11:20-0400 Diastolic blood pressure 94 mm[Hg] Florencia Canela MD Work Phone: [employer] 01-30-2022 11:20-0400 Systolic blood pressure 142 mm[Hg] Florencia Canela MD Work Phone: [employer] 01-29-2022 12:19-0400 Body height 182.9 cm Florencia Canela MD Work Phone: [employer] 01-29-2022 06:00-0400 Body mass index (BMI) [Ratio] 23.68 kg/m2 Florencia Canela MD Work Phone: [employer] 01-29-2022 06:00-0400 Body weight 79.2 kg Florencia Canela MD Work Phone: [employer] 01-20-2022 20:17-0500 Diastolic blood pressure 80 mm[Hg] Nicholas Martinez MD Work Phone: [employer] 01-20-2022 20:17-0500 Heart rate 118 /min Nicholas Martinez MD Work Phone: [employer] 01-20-2022 20:17-0500 Respiratory rate 24 /min Nicholas Martinez MD Work Phone: [employer] 01-20-2022 20:17-0500 SaO2% (BldA) [Mass fraction] 98 % Nicholas Martinez MD Work Phone: [employer] 01-20-2022 20:17-0500 Systolic blood pressure 123 mm[Hg] Nicholas Martinez MD Work Phone: [employer] 01-20-2022 19:40-0500 Body temperature 99.5 [degF] Nicholas Martinez MD Work Phone: [employer] 01-20-2022 17:47-0500 Body mass index (BMI) [Ratio] 21.24 kg/m2 Nicholas Martinez MD Work Phone: [employer] 01-20-2022 17:47-0500 Body weight 73.03 kg Nicholas Martinez MD Work Phone: [employer] 01-10-2022 21:00-0500 Diastolic blood pressure 88 mm[Hg] Jessica Barrow MD Work Phone: [employer] 01-10-2022 21:00-0500 Heart rate 105 /min Jessica Barrow MD Work Phone: [employer] 01-10-2022 21:00-0500 Respiratory rate 17 /min Jessica Barrow MD Work Phone: [employer] 01-10-2022 21:00-0500 SaO2%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 [employer] Phone: Comment on above: As Needed until discontinued starting Surgical Pathology Surgical Path ology Lab Routine Release Upon Ordering for 1 Occurrences starting 01/26/2022 [employer] Phone: Comment on above: Release Upon Ordering for 1 Occurrences starting 01/26/2022 End: 01-10-2022 Urinalysis Urinalysis Lab Routine One Time for 1 Occurrences starting 01/10/2022 until 01/10/2022 [employer] Phone: Comment on above: One Time for 1 Occurrences starting 12/2021 until 01/10/2022 End: 12-21-2021 VANCOMYCIN, RANDOM VANCOMYCIN, RANDOM Lab Routine One Time for 1 Occurrences starting 12/21/2021 until 12/21/2021 [employer] Phone: Comment on above: One Time for 1 Occurrences starting 12/12 until 12/21/2021 End: 05-06-2022 Wound Culture Wound Culture Microbiology Routine One Time for 1 Occurrences starting 05/06/2022 until 05/06/2022 [employer] Phone: Comment on above: One Time for 1 Occurrences starting 04/12 until 05/06/2022 End: 05-06-2022 Wound Gram stain Wound Gram stain Microbiology Routine One Time for 1 Occurrences starting 05/06/2022 until 05/06/2022 MAURA GRIFFIN [facility] Work Phone: Comment on above: One Time for 1 Occurrences starting 04/12 until 05/06/2022 Payers Date Payer Category Payer Unknown [id number] [id number] [id number] 1980 Unknown [id number] 2.16.84 [id number] 1982 Unknown [id number] 2.16.8 [id number] 1982 Unknown [id number] 2.16.8 [id number] 1982 Unknown [id number] 2.16.8 [id number] 1982 Unknown [id number] 2.16.8 [id number] 1982 Unknown [id number] 2.16.8 [id number] 1982 Unknown [id number] 2.16.8 [id number] 1982 Unknown [id number] 2.16. [id number] 1982 Unknown [id number] 2.16.8 [id number] 1982 Unknown [id number] 2.16.8 [id number] 1959 Medicaid [id number]. [id number] Social History Date Type Detail Facility Start: 12-16-2020 End: 09-05-2022 Tobacco smoking status [facility] Former smoker [place] Start: 12-16-2020 End: 09-05-2022 [facility] use and exposure [facility] Start: 12-16-2020 End: 01-30-2024 Alcohol intake Current non-drinker of alcohol (finding) [place] Start: 1980 [facility]igned [facility] Start: 12-21-2021 End: 06-15-2022 Exposure to SARS-CoV-2 (event) Not sure [place] History of tobacco use Current smoker [facility] [employer] Work Phone: Start: 11-12-2023 History of Social function [facility] Start: 11-12-2023 Tobacco use panel [facility] Clinical Notes 05-29-2021 to 01-30-2024 Discharge InstructionsAttachIsauro Granger RN - 06/21/2022 4:36 PM EDConnie Granger RN - 06/21/2022 4:11 PM EDViki Perez MD - 06/21/2022 11:24 AM EDTDischarge Instr - Activity Note Date & Type Note Facility 01-30-2024 Hospital Discharge instructions Falguni Wan APRN - CNP - 01/30/2024 6:12 PM EDT Call [phone] ([phone]) to establish care for follow up. You can also call [facility] Link at [phone] to establish care. The following attachments cannot be sent through Care Everywhere.Influenza (Mongolian)documented in this encounter [facility] 04-16-2023 Note Attestation signed by Jose Rafael An MD at 04/17/2023 11:18 AM Seen and discussed with fellow, agree with assessment and plan. [facility] Gastroenterology New Patient Visit - History & [...] Acute hypokalemia Acute osteomyelitis of left calcaneus ([facility]/HCC) Acute respiratory failure with hypoxia ([facility]/HCC) Acute septic pulmonary embolism without acute cor pulmonale ([facility]/HCC) Bloody diarrhea Elevated C-reactive protein (CRP) Elevated procalcitonin Endocarditis 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CMS/HCC) Chronic hepatitis C without hepatic coma (CMS/HCC) Hepatitis C virus infection without hepatic coma Heroin abuse (CMS/HCC) Hyperglycemia Hyperkalemia IVDU (intravenous drug user) Lower extremity edema Moderate protein-calorie malnutrition (CMS/HCC) Moderate tricuspid regurgitation MRSA bacteremia Normocytic normochromic anemia Opiate withdrawal (CMS/HCC) Sepsis ([facility]/HCC) Sepsis due to Nathaniel species without acute organ dysfunction ([facility]/HCC) Septic bursitis Septic embolism ([facility]/HCC) Sinus tachycardia SIRS (systemic inflammatory response syndrome) ([facility]/HCC) Staphylococcal arthritis of left ankle (CMS/HCC) [...] and no supraclavic (more content not included)... [facility] 06-21-2022 History of Present illness Narrative Discharged via ambulation with sql report writer to front door. Patient's aunt picking patient up. Patient left with belongings and dc instructions. Meds with patient at dc. Patient up in room and in bed at intervals. States his aunt will pick him up. Images from the original note were not included. [facility] Office: [phone] Mikie Rodriguez DO, Theo Lerma DO, Stuart [...] Rea, PABLO, Deysi Pablo, PABLO, Shelli Menon, HOUSE RN, Tika Hernandez, HOUSE RN, Cathleen Moran, EARLY CHILDHOOD SERVICES COORDINATOR, Razia Figueroa, FÉLIX, Madalyn Julien, PABLO, Amie Richardson, PABLO, Mary Meléndez, PABLO [facility] IN-PATIENT SERVICE [facility] Progress Note 06/21/2022 11:24 AM Name: Tip Ansari Acct: [id number] Room: [address] [place] [address] Day: 6 Admit Date: 06/15/2022 4:29 PM [...] repeat CT chest 03/05 but [facility] [place] [facility] due to a IVDU relapse 05/06/22 Review [...] drug use. Drugs: Cocaine, Opiates , Marijuana ([place]), and Methamphetamines (Crystal Meth). He reports that [...] Value Date/Time PHART 7.380 12/16/2020 09:20 AM [id number] 44.5 12/16/2020 09:20 AM PO2ART 94.4 12/16/2020 09:20 AM BUH3NCO 25.7 12/16/2020 09:20 AM NBEA NOT REPORTED 12/16/2020 09:20 AM PBEA 0.3 12/16/2020 09:20 AM [id number] 97.1 12/16/2020 09:20 AM FIO2 28 12/16/2020 [...] to Nathaniel species without acute organ dysfunction ([facility]) 06/17/2022 Yes IVDU (intravenous drug user) 06/21/2022 Yes SIRS (systemic inflammatory response syndrome) ([facility]) 06/20/2022 Yes Acute septic pulmonary embolism without acute cor pulmonale ([facility]) 06/20/2022 Yes Elevated procalcitonin 06/20/2022 Yes CRP elevated 06/20/2022 Yes Septic embolism ([facility]) 06/17/2022 Yes Normocytic normochromic anemia 06/17/2022 Yes Subacute right-sided infective endocarditis 06/17/2022 Yes 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[facility]) 06/20/2022 Yes Plan: 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 Infectious disease following. Not candidate for valvular repair IVDA: pt without evidence of withdrawal, has been on suboxone in past, but this cannot be administered in [place] [facility] Normocytic normochromic anemia : monitor hgb, transfuse [...] up plan to get Diflucan. Patient agrees. Consultants Intern attempted to contact outpatient pharmacy at 1800 but they were closed. Images from the original note were not included. [facility] Office: [phone] Mikie Rodriguez DO, Theo Lerma DO, Stuart [...] Abraham PA-C, Eli Fu DNP, Keri Walker HOUSE RN, Sherrie Rea HOUSE RN, Deysi Pablo, HOUSE RN, Shelli Menon HOUSE RN, Tika Hernandez, HOUSE RN, Cathleen Moran, EARLY CHILDHOOD SERVICES COORDINATOR, Razia Figueroa DNP, Madalyn Julien, HOUSE RN, Amie Richardson, HOUSE RN, Mary Meléndez, HOUSE RN [facility] IN-PATIENT SERVICE [facility] Progress Note 06/20/2022 10:46 AM Name: Tip Ansari Acct: [id number] [facility] [id number] Day: 5 Admit Date: 06/15/2022 4:29 PM [...] repeat CT chest 03/05 but [facility] [place] [facility] due to a IVDU relapse 05/06/22 Review [...] pulmonary disease) (HCC), Depression, and Drug addiction ([facility]). Social History: reports that he has quit smoking. He has never used smokeless tobacco. He reports current drug use. Drugs: Cocaine, Opiates , Marijuana ([place]), and Methamphetamines (Crystal Meth). He reports that [...] Value Date/Time PHART 7.380 12/16/2020 09:20 AM EPS8BRD 44.5 12/16/2020 09:20 AM PO2ART 94.4 12/16/2020 09:20 AM SUP4IYQ 25.7 12/16/2020 09:20 AM NBEA NOT REPORTED 12/16/2020 09:20 AM PBEA 0.3 12/16/2020 09:20 AM [id number] 97.1 12/16/2020 09:20 AM FIO2 28 12/16/2020 [...] 06/20/2022 Yes SIRS (systemic inflammatory response syndrome) ([facility]) 06/20/2022 Yes Acute septic pulmonary embolism without [...] but this cannot be administered in [place] [facility] Normocytic normochromic anemia : monitor hgb, transfuse [...] from the original note were not included. [facility] Occupational Therapy Not Seen Note DATE: 06/20/2022 NAME: Tip Ansari : 1980 Patient not seen this date for Occupational Therapy due to: Patient Declined: Patient reports too tired and has not been able to get any sleep and is not doing therapy right now . Next Scheduled Treatment: Ck 06/21 Images from the original note were not included. [facility] - Infectious diseases evaluation Progress Note admission date 06/15/2022 reason for consultation: sepsis Impression : Current: Bilat septic pulm emboli Occasional hemoptysis Endocarditis TV, vegetation larger CRP procal elevation Chills and fever in [place] [facility] Relapsed drug use SIRS + tachycardia and [...] repeat CT chest 03/05 but went to [place] [facility] Allergy to PNC as a child, but [...] Unclear if he ll go back to [place] [facility] or will be released Infection Control Recommendations [place] Precautions Contact Isolation Antimicrobial Stewardship Recommendations Simplification [...] repeat CT chest 03/05 but went to [place] [facility] due to a IVDU relapse 05/06/22 [place] [facility] 06/15 for chills headaches getting worse and some LGF - sent to [facility] and seen now in ER - minimal [...] CALCANEOUS performed by Tip Grewal DPM at [facility] OR FOOT SURGERY Left 01/26/2022 INCISION [...] use: Yes Types: Cocaine, Opiates , Marijuana ([place]), Methamphetamines (Crystal Meth) Comment: last use 05/05 [...] Saenz MD PGY-1, Department of Internal Medicine [facility], [place], [place] I have discussed the care of [...] from the original note were not included. [facility] Office: [phone] Mikie Rodriguez DO, Theo Lerma DO, Stuart [...] Avila MD, Lyle Woods MD, Teresa Quintero, HOUSE RN, Leslie Rao, HOUSE RN, Ro Bernard, HOUSE RN, Carter Charles, HOUSE RN, KO HunterC, Eli Fu, DNP, Keri Walker, HOUSE RN, Sherrie Rea, HOUSE RN, Deysi Pablo, HOUSE RN, Shelli Menon, HOUSE RN, Tika Hernandez, HOUSE RN, Cathleen Moran, EARLY CHILDHOOD SERVICES COORDINATOR, Razia Figueroa, DNP, Madalyn Julien, HOUSE RN, Amie Richardson, HOUSE RN, Mary Meléndez, HOUSE RN [facility] IN-PATIENT SERVICE [facility] Progress Note 06/19/2022 1:11 PM Name: Tip Ansari Acct: [id number] Room: [address] [place] [address] Day: 4 Admit Date: 06/15/2022 4:29 PM [...] repeat CT chest 03/05 but [place] [facility] due to a IVDU relapse 05/06/22 Review [...] drug use. Drugs: Cocaine, Opiates , Marijuana (Laurel), and Methamphetamines (Crystal Meth). He reports that [...] RDW, PLT, MPV, SEDRATE, CRP, INR, DDIMER, PT5LDCYW, LABABSO in the last 72 hours. Invalid [...] Value Date/Time PHART 7.380 12/16/2020 09:20 AM [id number] 44.5 12/16/2020 09:20 AM PO2ART 94.4 12/16/2020 09:20 AM AIJ7ZSR 25.7 12/16/2020 09:20 AM NBEA NOT REPORTED 12/16/2020 09:20 AM PBEA 0.3 12/16/2020 09:20 AM [id number] 97.1 12/16/2020 09:20 AM FIO2 28 12/16/2020 [...] to Nathaniel species without acute organ dysfunction ([facility]) 06/17/2022 Yes IV drug abuse (HCC) 06/17/2022 Yes Septic embolism ([facility]) 06/17/2022 Yes Normocytic normochromic anemia 06/17/2022 Yes Subacute right-sided infective endocarditis 06/17/2022 Yes Plan: 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 Infectious disease following. Not candidate for valvular repair IVDA: pt without evidence of withdrawal, has been on suboxone in past, but this cannot be administered in current [place] [facility] Normocytic normochromic anemia : monitor hgb, transfuse as need for symptomatic anemia or hgb <7 COPD not in acute exacerbation : nebulizer prn PTOT Diet as tolerated Labs, imaging, ECG reviewed PTOT DC planning to follow - we need to figure out with CM where pt can go with IV abx - which will be coordinated with nurse @ [facility] - may need transfer [place] [facility] [place] [facility] where IV abx can be administered Alberto Perez MD 06/19/2022 1:11 PM [facility] Pharmacokinetic Monitoring Service - Vancomycin Consulting [...] were not included. [facility] - Infectious diseases evaluation Progress Note admission date 06/15/2022 reason for consultation: sepsis Impression : Current: Bilat septic pulm emboli Occasional hemoptysis Endocarditis TV, vegetation larger CRP procal elevation Chills and fever in [place] [facility] Relapsed drug use SIRS + tachycardia and [...] repeat CT chest 03/05 but went to [place] [facility] Allergy to PNC as a child, but [...] Unear if he ll go back to [place] [facility] or will be released Infection Control Recommendations [place] Precautions Contact Isolation Antimicrobial Stewardship Recommendations Simplification [...] repeat CT chest 03/05 but went to [place] [facility] due to a IVDU relapse 05/06/22 [place] [facility] 06/15 for chills headaches getting worse and some LGF - sent to [facility] and seen now in ER - minimal [...] CALCANEOUS performed by Tip Grewal DPM at [facility] OR FOOT SURGERY Left 01/26/2022 INCISION [...] use: Yes Types: Cocaine, Opiates , Marijuana ([place]urel), Methamphetamines (Crystal Meth) Comment: last use 05/05 [...] Saenz MD PGY-1, Department of Internal Medicine [facility], [place], [place] I have discussed the care of the patient, including pertinent history and exam findings, with the resident. I have seen and examined the patient and the hall elements of all parts of the encounter have been performed by me. I agree with the assessment, plan and orders as documented by the resident. Marisol Andrea, Infectious Diseases [facility] Office: [phone] Mikie Rodriguez DO, Theo Lerma DO, Stuart Natarajan DO, Harpal Tran DO, Prashanth Sadler MD, Deana Raza MD, Florencia Canela MD, Tess Ford MD, Leodan Mak MD, Marimar Ren MD, Kyle Broussard DO, Juan Driver MD, Sophia Agustin DO, Jodi Bain MD, Palomo Drummond MD, Johann Rodriguez DO, Elvia Torres MD, Alberto Perez MD, Yuliana Saenz MD, Fbaricio Syed DO, Radha Avila MD, Lyle Woods MD, Teresa Quintero, HOUSE RN, Leslie Rao, HOUSE RN, Ro Bernard, HOUSE RN, Carter Charles, HOUSE RN, Mckayla Abraham PA-C, Eli Fu, DNP, Keri Walker, HOUSE RN, Sherrie Rea, HOUSE RN, Deysi Pablo, HOUSE RN, Shelli Menon, HOUSE RN, Tika Hernandez, HOUSE RN, Cathleen Moran, EARLY CHILDHOOD SERVICES COORDINATOR, Razia Figueroa, FÉLIX, Madalyn Juline HOUSE RN, Amie Richardson, HOUSE RN, Mary Meléndez, HOUSE RN [facility] Nighttime In-House Provider 06/19/2022 2:38 AM Name: Tip Ansari Acct: [id number] Room: IP Day: 4 Admit Date: 06/15/2022 [...] Abscess, Chronic hepatitis C without hepatic coma ([facility]), COPD (chronic obstructive pulmonary disease) ([facility]), Depression, and Drug addiction ([facility]). Vitals: BP 114/82 Pulse 77 Temp 98.4 [...] from the original note were not included. [facility] Office: [phone] Mikie Rodriguez DO, Theo Lerma DO, Stuart [...] Avila MD, Lyle Woods MD, Teresa Quintero, HOUSE RN, Leslie Rao, HOUSE RN, Ro Bernard, HOUSE RN, Carter Charles, HOUSE RN, KO HunterC, Eli Fu, DNP, Keri Walker, HOUSE RN, Sherrie Rea, HOUSE RN, Deysi Pablo, HOUSE RN, Shelli Menon, HOUSE RN, Tika Hernandez, HOUSE RN, Cathleen Moran, EARLY CHILDHOOD SERVICES COORDINATOR, Razia Figueroa, FÉLIX, Madalyn Julien, HOUSE RN, Amie Richardson, HOUSE RN, Mary Meléndez, HOUSE RN [facility] IN-PATIENT SERVICE [facility] Progress Note 06/18/2022 2:40 PM Name: Tip Ansari Acct: [id number] Room: [address] [place] [address] Day: 3 Admit Date: 06/15/2022 4:29 PM [...] repeat CT chest 03/05 but [place] [facility] to a IVDU relapse 05/06/22 Review [...] drug use. Drugs: Cocaine, Opiates , Marijuana ([place]), and Methamphetamines (Crystal Meth). He reports that [...] Value Date/Time PHART 7.380 12/16/2020 09:20 AM [id number] 44.5 12/16/2020 09:20 AM PO2ART 94.4 12/16/2020 09:20 AM UDY9WTW 25.7 12/16/2020 09:20 AM NBEA NOT REPORTED 12/16/2020 09:20 AM PBEA 0.3 12/16/2020 09:20 AM [id number] 97.1 12/16/2020 09:20 AM FIO2 28 12/16/2020 [...] PTOT Sophia Agustin DO 06/18/2022 2:40 PM [facility] Pharmacokinetic Monitoring Service - Vancomycin Tip [...] were not included. [facility] - Infectious diseases evaluation Progress Note admission date 06/15/2022 reason for consultation: sepsis Impression : Current: Bilat septic pulm emboli Occasional hemoptysis Endocarditis TV, vegetation larger CRP procal elevation [place] [facility] Relapsed drug use SIRS + tachycardia and [...] repeat CT chest 03/05 but went to [place] [facility] Allergy to PNC as a child, but [...] evidence of infectious seeding. Infection Control Recommendations [place] Precautions Contact Isolation Antimicrobial Stewardship Recommendations Simplification [...] repeat CT chest 03/05 but went [place] [facility] due to a IVDU relapse 05/06/22 [place] [facility] 06[place]15 for chills headaches getting worse and some LGF - sent to [facility] and seen now in ER - minimal [...] CALCANEOUS performed by Tip Grewal DPM at [facility] OR FOOT SURGERY Left 01/26/2022 INCISION [...] use: Yes Types: Cocaine, Opiates , Marijuana (Laurel), Methamphetamines (Crystal Meth) Comment: last use 05/05 [...] Saenz MD PGY-1, Department of Internal Medicine [facility], [place], [place] I have discussed the care of [...] from the original note were not included. [facility] Office: [phone] Mikie Rodriguez DO, Theo Lerma DO, Stuart Natarajan, DO, Harpal Tran, DO, Prashanth Sadler MD, Deana Raza MD, Florencia Canela MD, Tess Ford MD, Leodan Mak MD, Marimar Ren MD, Kyle Broussard, DO, Juan Driver MD, Sophia Agustin, DO, Jodi Bain MD, Palomo Drummond MD, Johann Rodriguez DO, Elvia Torrse MD, Alberto Perez MD, Yuliana Saenz MD, Fabricio Syed DO, Radha Avila MD, Lyle Woods MD, Teresa Quintero, HOUSE RN, Leslie Rao, HOUSE RN, Ro Bernard, HOUSE RN, Carter Charles, HOUSE RN, KO HunterC, Eli Fu, DNP, Keri Walker, HOUSE RN, Sherrie Rea, HOUSE RN, Deysi Pablo, HOUSE RN, Shelli Menon, HOUSE RN, Tika Hernandez, HOUSE RN, Cathleen Moran, EARLY CHILDHOOD SERVICES COORDINATOR, Razia Figueroa, DNP, Madalyn Julien, HOUSE RN, Amie Richardson, HOUSE RN, Mary Meléndez, HOUSE RN [facility] IN-PATIENT SERVICE [facility] Progress Note 06/17/2022 3:17 PM Name: Tip Ansari Acct: [id number] Room: [address] [place] [address] Day: 2 Admit Date: 06/15/2022 4:29 PM [...] repeat CT chest 03/05 but [facility] [place] [facility] to a IVDU relapse 05/06/22 Review [...] drug use. Drugs: Cocaine, Opiates , Marijuana (Laurel), and Methamphetamines (Crystal Meth). He reports that [...] Value Date/Time PHART 7.380 12/16/2020 09:20 AM TCB7LCR 44.5 12/16/2020 09:20 AM PO2ART 94.4 12/16/2020 09:20 AM VDJ4WGN 25.7 12/16/2020 09:20 AM NBEA NOT REPORTED 12/16/2020 09:20 AM PBEA 0.3 12/16/2020 09:20 AM [id number] 97.1 12/16/2020 09:20 AM FIO2 28 12/16/2020 [...] were not included. [facility] - Infectious diseases evaluation Progress Note admission date 06/15/2022 reason for consultation: sepsis Impression : Current: Bilat septic pulm emboli Occasional hemoptysis [place] fever [place] [facility] Relapsed drug use SIRS + tachycardia and [...] repeat CT chest 03/05 but went to [place] [facility] Allergy to PNC as a child, but [...] evidence of infectious seeding. Infection Control Recommendations [place] Precautions Contact Isolation Antimicrobial Stewardship Recommendations Simplification [...] repeat CT chest 03/05 but went to [place] [facility] due to a IVDU relapse 05/06/22 [place] [facility] 06/15 for chills headaches getting worse and some LGF - sent to [facility] and seen now in ER - minimal [...] CALCANEOUS performed by Tip Grewal DPM at [facility] OR FOOT SURGERY Left 01/26/2022 INCISION [...] use: Yes Types: Cocaine, Opiates , Marijuana (Laurel), Methamphetamines (Crystal Meth) Comment: last use 05/05 [...] Guerrero MD PGY-3, Department of Internal Medicine [place], [place] Final assessment and plan pending discussion [...] were not included. [facility] - Infectious diseases evaluation Progress Note admission date 06/15/2022 reason for consultation: sepsis Impression : Current: Bilat septic pulm emboli Occasional hemoptysis Chills and fever in [place] [facility] Relapsed drug use SIRS + tachycardia and clammy New LBP and neck pain Left calcaneal osteoarthritis Recently: Left calcaneal osteomyelitis, septic bursitis left heel w I/D 01/26/22, candidemia albicans 01/21/22 TV endocarditis GIANFRANCO 01/24/22 treated w fluconazole Septic pulm emboli from MRSA septicemia 12/13/21 allergy to vanco w recurrent serotonin syndrome. Was planned for a repeat CT chest 03/05 but went to [place] [facility] Allergy to PNC as a child, but [...] a site of seeding Infection Control Recommendations [place] Precautions Contact Isolation Antimicrobial Stewardship Recommendations Simplification [...] repeat CT chest 03/05 but went to [place] [facility] due to a IVDU relapse 05/06/22 [place] [facility] 06/15 for chills headaches getting worse and some LGF - sent to [facility] and seen now in ER - minimal [...] CALCANEOUS performed by Tip Grewal DPM at [facility] OR FOOT SURGERY Left 01/26/2022 INCISION [...] use: Yes Types: Cocaine, Opiates , Marijuana ([place]), Methamphetamines (Crystal Meth) Comment: last use 05/05 [...] Saenz MD Office: Perfect serve / office [phone] ATTESTATION: I have discussed the case, including [...] Echo Lab documented in this encounter [employer] [facility] [employer] Phone: 05-08-2022 History of Present illness Narrative Patient given discharge instructions and follow up appointments and cam boot instructions. Patient verbalized understanding. Images from the original note were not included. [facility] Office: [phone] Mikie Rodriguez DO, Theo Lerma DO, Stuart [...] Avila MD, Lyle Woods MD, Teresa Quintero, HOUSE RN, Tika Hernandez CNP, Abdirahman Bella, HOUSE RN, Leslie Rao, HOUSE RN, Ro Bernard, HOUSE RN, Carter Charles, HOUSE RN, KO HunterC, Eli Fu, DNP, Keri Walker, HOUSE RN, Sherrie Rae, HOUSE RN, Deysi Pablo, HOUSE RN, Cathleen Moran, EARLY CHILDHOOD SERVICES COORDINATOR, Razia Figueroa, DNP, Madalyn Julien, HOUSE RN, Shelli Menon, HOUSE RN, Amie Richardson, HOUSE RN IN-PATIENT SERVICE [facility] Progress Note 05/08/2022 10:06 AM Name: Tip Ansari Acct: [id number] Room: [address] [place] [address] Day: 2 Admit Date: 05/06/2022 4:40 AM [...] Abscess, Chronic hepatitis C without hepatic coma ([facility]), COPD (chronic obstructive pulmonary disease) ([facility]), Depression, and Drug addiction ([facility]). Social History: reports that he has quit smoking. He has never used smokeless tobacco. He reports current drug use. Drugs: Cocaine, Opiates , Marijuana ([place]), and Methamphetamines (Crystal Meth). He reports that [...] Results Component Value Date PHART 7.380 12/16/2020 DNW6YDW 44.5 12/16/2020 PO2ART 94.4 12/16/2020 CWA0FWF 25.7 12/16/2020 NBEA NOT REPORTED 12/16/2020 PBEA 0.3 12/16/2020 [id number] 97.1 12/16/2020 FIO2 28 12/16/2020 Lab Results [...] IP CONSULT TO PODIATRY INPATIENT CONSULT TO ANTHROPOLOGY AND ARCHEOLOGY INSTRUCTOR CHEMICAL DEPENDENCY REFERRAL FOR SOCIAL SERVICE CONSULT Alberto Perez MD 05/08/2022 10:06 AM Images from the original note were not included. [facility] Office: [phone] Mikie Rodriguez DO, Theo Lerma DO, Stuart [...] Rea, PABLO, Deysi Pablo, PABLO, Cathleen Moran, EARLY CHILDHOOD SERVICES COORDINATOR, Razia Figueroa, FÉLIX, Madalyn Julien, PABLO, Shelli Menon CNP, Amie Richardson, PABLO IN-PATIENT SERVICE [facility] Progress Note 05/07/2022 6:09 PM Name: Tip Ansari Acct: [id number] Room: [address] [place] [address] Day: 1 Admit Date: 05/06/2022 4:40 AM PCP: No primary care provider on file. Code Status: Full Code Subjective: C/C: Left ankle pain and swelling Interval History Status: Malaise Withdrawing Nausea Not eating well Sweats Data Base Updates: Mfczxvh69bk/dL VKO54is/dL CREATININE0.62 Low mg/dL Calcium8.9mg/dL Eysert578xcou/L Potassium4.2 Brief History: As documented in the [...] drug use. Drugs: Cocaine, Opiates , Marijuana ([place]), and Methamphetamines (Crystal Meth). He reports that [...] Results Component Value Date PHART 7.380 12/16/2020 HAR2DXH 44.5 12/16/2020 PO2ART 94.4 12/16/2020 JQH1QCP 25.7 12/16/2020 NBEA NOT REPORTED 12/16/2020 PBEA 0.3 12/16/2020 T2GPQFRG 97.1 12/16/2020 FIO2 28 12/16/2020 Lab Results [...] suggested DVT prophylaxis [place] [facility] stabilized IP CONSULT TO INFECTIOUS DISEASES IP CONSULT TO PODIATRY INPATIENT CONSULT TO ANTHROPOLOGY AND ARCHEOLOGY INSTRUCTOR CHEMICAL DEPENDENCY REFERRAL FOR SOCIAL SERVICE CONSULT Theo Lerma DO 05/07/2022 6:09 PM Images from the original note were not included. [facility] - Progress Note Today's Date and Time: [...] with Dr Andrea for infection. Please call [phone] for appointment Medical Decision Making/Summary/Discussion:6/27/20 22 Infection Control Recommendations [place] Precautions Contact Isolation MRSA Antimicrobial Stewardship Recommendations [...] the police brought him in to the [facility] ER. At that location the patient complained of redness, swelling and pain of the left ankle. He was transferred to [place] because of concerns with recurrence of one [...] CALCANEOUS performed by Tip Grewal DPM at [facility] OR FOOT SURGERY Left 01/26/2022 INCISION [...] use: Yes Types: Cocaine, Opiates , Marijuana ([place]), Methamphetamines (Crystal Meth) Comment: last use 05/05 [...] Friends and Family: Not on file Attends Confucianist Services: Not on file Active Member of [...] excluded. No soft tissue gas. Medical Decision [id number]: Medical Decision Making-Other: Note: Labs, medications, radiologic studies were reviewed with personal review of films Large amounts of data were reviewed Discussed with nursing Staff, community development planner Infection Control and Prevention measures reviewed [...] is a 42 y.o. male seen at [facility] for left heel pain. Patient is well [...] 12:34 PM documented in this encounter [employer] Work Phone: 05-07-2022 Hospital Discharge instructions Jason Sunshine RN - 05/07/2022 4:29 PM EDT As to Jasno Sunshine RN - 05/07/2022 4:29 PM EDT [...] most local grocery stores, pharmacies, and chain [employer]. If you have any questions about your [...] Information Primary Emergency Contact: Vince Ansaria Address: [place] [address] Relation: Parent Secondary Emergency Contact: yari jaida Mobile Relation: Aunt/Uncle Past Surgical History: Past Surgical History: Procedure Laterality Date ABSCESS DRAINAGE Left 2019 arm APPENDECTOMY FINGER SURGERY Right 5 th finger tendon repair FOOT DEBRIDEMENT Left 01/26/2022 INCISION AND DRAINAGE, BONE LEFT CALCANEOUS performed by Tip Grewal DPM at [facility] OR FOOT SURGERY Left 01/26/2022 INCISION AND DRAINAGE, BONE LEFT CALCANEOUS (Left Foot) PICC INSERTION VASCULAR ACCESS TEAM 01/25/2022 TYMPANOSTOMY TUBE PLACEMENT Bilateral Immunization History: There is no immunization history on file for this patient. 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[facility]) M00.061 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 Moderate tricuspid regurgitation I07.1 Hyperkalemia E87.5 Endocarditis I38 Sepsis ([facility]) A41.9 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 Hyperglycemia R73.9 Sepsis due to Nathaniel species without acute organ dysfunction ([facility]) B37.7, R65.20 Sinus tachycardia R00.0 Septic bursitis of Achilles M71.10 Acute osteomyelitis of left calcaneus ([facility]) M86.172 Opiate withdrawal ([facility]) F11.23 Acute hematogenous osteomyelitis of left ankle ([facility]) M86.072 Cellulitis of left lower extremity L03.116 IV drug abuse ([facility]) F19.10 Tenosynovitis of left ankle M65.9 Achilles [...] MENTAL STATUS:} IV Access: { CARLINE IV ACCESS:610748909} Nursing Mobility/ADLs: Walking {CHP DME ADLs:187261718} Transfer {CHP DME ADLs:850062661} Bathing {CHP DME ADLs:376940470} Dressing {CHP DME ADLs:713551461} Toileting {CHP DME ADLs:461462906} Feeding {CHP DME ADLs:887835765} Neuropsychiatric Aide {CHP DME ADLs:777984238} Med Delivery { CARLINE MED Delivery:663837720} Wound Care Documentation and Therapy: Wound 01/20/22 Ankle Left;Posterior (Active) Number of days: 107 Incision 01/26/22 Tibial Distal;Left;Posterior (Active) Number of days: 101 Elimination: Continence: Bowel: {YES / NO:} Bladder: {YES / NO:} Urinary Catheter: {Urinary Catheter:184664544} Colostomy/Ileostomy/Ileal Conduit: {YES / NO:} Date of Last BM: Intake/Output Summary (Last 24 hours) at 05/08/2022 1118 Last data filed at 05/08/2022 0730 Gross per 24 hour Intake -- Output 1600 ml Net -1600 ml I/O last 3 completed shifts: In: 1076 [P.O.:620; I.V.:35; IV Piggyback:421] Out: 2400 [Urine:2400] Safety Concerns: { CARLINE Safety Concerns:023444284} Impairments/Disabilities: {[facility]ments/Disabilities:61262279 3} Nutrition Therapy: Current Nutrition Therapy: { CARLINE Diet List:951385926} Routes of Feeding: {CHP DME Other Feedings:350790777} Liquids: {[employer] liquid thickness:16647} Daily Fluid Restriction: {CHP DME Yes amt example:856888374} Last Modified Barium Swallow with Video (Video Swallowing Test): {Done Not Done Date:} Treatments at the Time of Hospital Discharge: Respiratory Treatments: Oxygen Therapy: {Therapy; copd oxygen:50297} Ventilator: {[facility] Vent List:076212188} Rehab Therapies: {THERAPEUTIC INTERVENTION:0417722520} Weight Bearing Status/Restrictions: {MH CC Weight Bearin} Other Medical Equipment (for information only, NOT a DME order): {EQUIPMENT:067767863} Other Treatments: Patient's personal belongings (please select all that are sent with patient): {CHP DME Belongings:705959338} RN SIGNATURE: {Esignature:773292628} CASE MANAGEMENT/SOCIAL WORK SECTION Inpatient Status Date: Readmission Risk Assessment Score: Readmission Risk Risk of Unplanned Readmission: 20 Discharging to Facility/ Agency Name: Address: Phone: Fax: Dialysis Facility (if applicable) Name: Address: Dialysis Schedule: Phone: Fax: Cage Shift Manager/Menhaden Vessel Pilot signature: {Esignature:647169863} PHYSICIAN SECTION Prognosis: {Prognosis:3224000314} Condition at Discharge: { Patient Condition:886226840} Rehab Potential (if transferring to Rehab): {Prognosis:7244935110} Recommended Labs or Other Treatments After Discharge: Partial weightbearing in CAM walker to left leg Physician Certification: I certify the above information and transfer of Tip Ansari is necessary for the continuing treatment of the diagnosis listed and that he requires {Admit to Appropriate Level of Care:68927} for {GREATER/LESS:371324503} 30 days. Update Admission H&P: {CHP DME Changes in HandP:538236738} PHYSICIAN SIGNATURE: {Esignature:763463799} Diane Cordova DPM - 05/08/2022 Partial weight bearing to left foot, Wear cam boot to left foot while out of bed. documented in this encounter [employer] Phone: 01-30-2022 History of Present illness Narrative Pt being discharged home with friend. Pt stated he called his dental officer to inform them of discharge. Discharge instructions reviewed. Meds delivered via meds to bed. All belongings accounted for. All questions answered. Physical Therapy Facility/Department: [facility] CAR 2 Daily Treatment Note NAME: [...] heel/toe raises, and marches. Reps:15 AM-PAC Score AM-[facility] Inpatient Mobility Raw Score : 21 (01/30/221348) -[facility] Inpatient T-Scale Score : 50.25 (01/30/221348) [...] from the original note were not included. [facility] Office: [phone] Mikie Rodriguez DO, Theo Lerma DO, Stuart [...] Avila MD, Alberto Perez MD, Teresa Quintero, HOUSE RN, Tika Hernandez, HOUSE RN, Mary Meléndez, HOUSE RN, Cathleen Moran, EARLY CHILDHOOD SERVICES COORDINATOR, Abdirahman Bella, HOUSE RN, Leslie Rao, HOUSE RN, Madalyn Julien, HOUSE RN, Ro Bernard, HOUSE RN, Carter Charles, HOUSE RN, Mckayla Abraham, PA-C, Eli Fu, DNP, Razia Figueroa, DNP, Keri Walker, HOUSE RN, Sherrie Rea, HOUSE RN, Moon Waldrop, HOUSE RN, Ethel Soto, HOUSE RN, Jazzy Javier, HOUSE RN, Shelli Menon, HOUSE RN [facility] IN-PATIENT SERVICE [facility] Progress Note 01/30/2022 1:39 PM Name: Tip Ansari Acct: [id number] Room: IP Day: 10 Admit Date: 01/20/2022 [...] year old gentleman who initially presented to [facility] ED from the local [place] [facility] after he developed acute onset chills and shaking. He noted a wound to his left foot as well. Onset was abrupt, as he felt well earlier in the day. [place] [facility] [place] bacteremia with tricuspid [...] vancomycin and patient was discharged back to [place] [facility] CT imaging in the ER revealed no [...] drug use. Drugs: Cocaine, Opiates , Marijuana ([place]), and Methamphetamines (Crystal Meth). He reports that [...] Results Component Value Date PHART 7.380 12/16/2020 KEF6UNR 44.5 12/16/2020 PO2ART 94.4 12/16/2020 GVS0FMN 25.7 12/16/2020 NBEA NOT REPORTED 12/16/2020 PBEA 0.3 12/16/2020 [id number] 97.1 12/16/2020 FIO2 28 12/16/2020 Lab Results [...] Opiate withdrawal (HCC) 01/28/2022 No Heroin abuse ([facility]) 01/23/2022 Yes Hepatitis C virus infection without hepatic coma 01/23/2022 Yes Endocarditis of tricuspid valve 01/23/2022 Yes Moderate tricuspid regurgitation 01/23/2022 Yes Hyperglycemia 01/23/2022 Yes Acute osteomyelitis of left calcaneus (HCC) 01/28/2022 Yes Acute hematogenous osteomyelitis of left ankle ([facility]) 01/29/2022 Yes Plan: 1. Sepsis likely due [...] PM Physician Progress Note PATIENT: TIP ANSARI [facility] #: [id number] : 1980 ADMIT DATE: 01/20/2022 10:23 PM [...] were not included. [facility] - Infectious diseases evaluation admission date 01/20/2022 reason for consultation: Sepsis Vanco allergy Impression : Current: Vancomycin reaction- Tachycardia fever red neck syndrome in [place] Pulmonary septic emboli, MRSA -residual lesions remain [...] red neck syndrome infection with fever in [place] and again here Label allergic to vanco [...] Chart reconsiled for DC Infection Control Recommendations [place] Precautions Contact Isolation Antimicrobial Stewardship Recommendations Simplification of therapy IV to oral conversion Coordination ofOutpatient Care: Estimated Length of IV antimicrobials: Patient will need Midline / picc Catheter Insertion: Patient will need SNF: Patient will need outpatient wound care: History of Present Illness: Initial history: Tip Ansari is a 42 y.o.-year-old male sent to patient from [place] [facility] because of rigors and fever as well as the left foot wound that seems to have started suddenly [place] [facility] Recently seen 12/2021 by ky LONG for MRSA bacteremia, right knee septic [...] Acid, Whole Blood3.3 High Sed Rate58 High Fkssyhdvtpttq73.47 High Micro: BC One f two, 01/21 [...] CALCANEOUS performed by Tip Grewal DPM at [facility] OR FOOT SURGERY Left 01/26/2022 INCISION [...] use: Yes Types: Cocaine, Opiates , Marijuana ([place]), Methamphetamines (Crystal Meth) Comment: quit heroin Nov [...] Friends and Family: Not on file Attends Confucianist Services: Not on file Active Member of [...] Andrea MD Office: Perfect serve / office [phone] Images from the original note were not included. Physical Therapy Physical Therapy Cancel Note DATE: 01/29/2022 NAME: Tip Ansari : 1980 Patient not seen this date for Physical Therapy due to: Patient Declined: Stated he is getting around ok today, therapist educated pt on benefit of PT in hospital setting, PT will resume 01/30/22 Images from the original note were not included. [facility] Office: [phone] Mikie Rodriguez DO, Theo Lerma DO, Stuart [...] Hernandez CNP, Mary Meléndez CNP, Cathleen Moran, [facility], Abdirahman Bella, HOUSE RN, Leslie Rao, HOUSE RN, Madalyn Julien, HOUSE RN, Ro Bernard, HOUSE RN, Carter Charles, HOUSE RN, Mckayla Abraham PA-C, Eli Fu DNP, Razia Figueroa, FÉLIX, Keri Walker, HOUSE RN, Sherrie Rea, HOUSE RN, Moon Waldrop, HOUSE RN, Ethel Soto, HOUSE RN, Jazzy Javier, HOUSE RN, Shelli Menon, HOUSE RN [facility] IN-PATIENT SERVICE [facility] Progress Note 01/29/2022 1:33 PM Name: Tip Ansari Acct: [id number] Room: IP Day: 9 Admit Date: 01/20/2022 [...] year old gentleman who initially presented to [facility] ED from the local [place] [facility] after he developed acute onset chills and shaking. He noted a wound to his left foot as well. Onset was abrupt, as he felt well earlier in the day. [place] [facility] [place] bacteremia with tricuspid [...] vancomycin and patient was [place] back [place] [facility] [place] imaging in the ER revealed no [...] drug use. Drugs: Cocaine, Opiates , Marijuana ([place]), and Methamphetamines (Crystal Meth). He reports that [...] Results Component Value Date PHART 7.380 12/16/2020 KUT2HPP 44.5 12/16/2020 PO2ART 94.4 12/16/2020 HIJ5VIY 25.7 12/16/2020 NBEA NOT REPORTED 12/16/2020 PBEA 0.3 12/16/2020 [id number] 97.1 12/16/2020 FIO2 28 12/16/2020 Lab Results [...] Opiate withdrawal (HCC) 01/28/2022 No Heroin abuse ([facility]) 01/23/2022 Yes Moderate tricuspid regurgitation 01/23/2022 Yes [...] loss Fluid Accumulation: 1 - Mild Extremities Potato Chip Sorter Strength: Not Performed Estimated Daily Nutrient Needs: Energy (kcal): 25-28 kcal/kg = 5695-0324 kcals/day; Weight Used for Energy Requirements: [place] Protein (g): 1.2-1.5 gm/kg = 90-110 gm [...] kg) (12/13/21 bed scale per chart review) [place] Body Weight: 178 lbs; % [place] Body Weight 90 % BMI: 21.7 BMI [...] Status,Weight,Skin Discharge Planning: Continue current diet Contact: [phone] [facility] Cardiothoracic Surgery Progress Note 01/29/2022 11:03 AM [...] were not included. [facility] - Infectious diseases evaluation admission date 01/20/2022 reason for consultation: Sepsis Vanco allergy Impression : Current: Vancomycin reaction- Tachycardia fever red neck syndrome in [place] Pulmonary septic emboli, MRSA -residual lesions remain [...] red neck syndrome infection with fever in [place] and again here Label allergic to vanco [...] condition carries increased mortality Infection Control Recommendations [place] Precautions Contact Isolation Antimicrobial Stewardship Recommendations Simplification of therapy IV to oral conversion Coordination ofOutpatient Care: Estimated Length of IV antimicrobials: Patient will need Midline / picc Catheter Insertion: Patient will need SNF: Patient will need outpatient wound care: History of Present Illness: Initial history: Tip Ansari is a 42 y.o.-year-old male sent [place] patient [place] [facility] because of rigors and fever as well as the left foot wound that seems to [place] [facility] Recently seen 12/2021 by ky STJered for MRSA bacteremia, right knee septic [...] Acid, Whole Blood3.3 High Sed Rate58 High Lsdfemvxmecrg93.47 High Micro: BC One f two, 01/21 [...] use: Yes Types: Cocaine, Opiates , Marijuana ([place]), Methamphetamines (Crystal Meth) Comment: quit heroin Nov [...] Friends and Family: Not on file Attends Confucianist Services: Not on file Active Member of [...] Andrea MD Office: Perfect serve / office [phone] Images from the original note were not included. [facility] - Infectious diseases evaluation Progress Note admission [...] reaction- Tachycardia, fever, red neck syndrome in [place] s/p 2 doses of Vancomycin. Likely serotonin [...] foot I&D on 01/26/22 Infection Control Recommendations [place] Precautions Contact Isolation Antimicrobial Stewardship Recommendations Simplification of therapy IV to oral conversion Coordination ofOutpatient Care: Estimated Length of IV antimicrobials: Patient will need Midline / picc Catheter Insertion: Patient will need SNF: Patient will need outpatient wound care: History of Present Illness: Initial history: Tip Ansari is a 42 y.o.-year-old male sent [place] [facility] because of rigors and fever as well as a left foot wound that seems to [place] [facility] Recently seen 12/13/[address] Andrea at [facility] for MRSA septicemia, right knee septic arthritis, [...] Whole Blood: 3.3 High Sed Rate58 High Tbqjbfqrcxrck97.47 High Micro: Blood: 12-13-21: MRSA x 2 [...] use: Yes Types: Cocaine, Opiates , Marijuana ([place]), Methamphetamines (Crystal Meth) Comment: quit heroin Nov [...] Friends and Family: Not on file Attends Confucianist Services: Not on file Active Member of [...] Contains abnormal data Culture, Blood 1 Order: [id number] Status: Final result Visible to patient: No [...] Martinez AT 1440 ON 12/14/2021 Resulting Agency [facility] Susceptibility Methicillin resistant staphylococcus aureus (4) Antibiotic [...] by contextual diversion. Chasity Matos APRN - [facility] Office: Perfect serve / office [phone] Images from the original note were not included. [facility] Office: [phone] Mikie Rodriguez DO, Theo Lerma DO, Stuart Natarajan DO, Harpal Tran DO, Prashanth Sadler MD, Deana Raza MD, Florencia Canela MD, Tess Ford MD, Yuliana Saenz MD, Leodan aMk MD, Marimar Ren MD, Fabricio Syed DO, Kyle Broussard DO, Juan Driver MD, Sophia Agustin DO, Lyle Woods MD, Jodi Bain MD, Palomo Drummond MD, Johann Rodriguez DO, Radha Avila MD, Alberto Perez MD, Teresa Quintero CNP, Tika Hernandez HOUSE RN, Mary Meléndez, HOUSE RN, Cathleen Moran, EARLY CHILDHOOD SERVICES COORDINATOR, Abdirahman Bella, HOUSE RN, Leslie Rao, HOUSE RN, Madalyn Julien, HOUSE RN, Ro Bernard, HOUSE RN, Carter Charles HOUSE RN, Mckayla Abraham PA-C, Eli Fu DNP, Razia Figueroa DNP, Keri Walker CNP, Sherrie Rea CNP, Moon Waldrop CNP, Ethel Soto CNP, Jazzy Javeir CNP, Shelli Menon CNP [facility] IN-PATIENT SERVICE [facility] Progress Note 01/28/2022 8:29 AM Name: Tip Ansari Acct: [id number] Room: IP Day: 8 Admit Date: 01/20/2022 [...] year old gentleman who initially presented to [facility] ED from the local [place] [facility] after he developed acute onset chills and shaking. He noted a wound to his left foot as well. Onset was abrupt, as he felt well earlier in the day. Patient [place] [facility] [place] bacteremia with tricuspid [...] vancomycin and patient was [place] back [place] [facility] [place] imaging in the ER revealed no [...] drug use. Drugs: Cocaine, Opiates , Marijuana ([place]), and Methamphetamines (Crystal Meth). He reports that [...] Results Component Value Date PHART 7.380 12/16/2020 XWO2TDZ 44.5 12/16/2020 PO2ART 94.4 12/16/2020 QJM9MYT 25.7 12/16/2020 NBEA NOT REPORTED 12/16/2020 PBEA 0.3 12/16/2020 [id number] 97.1 12/16/2020 FIO2 28 12/16/2020 Lab Results [...] is a 42 y.o. male seen at [facility] for possible septic arthritis of the left [...] not hesitate to contact the podiatry resident blood bank calendar control clerk with any other questions or concerns. Follow-up with Dr. Grewal within [address] Aissatou White DPM Podiatric Medicine & Surgery 01/27/2022 at 12:05 PM Images from the original note were not included. [facility] Office: [phone] Mikie Rodriguez DO, Theo Lerma DO, Stuart [...] Avila MD, Alberto Perez MD, Teresa Quintero, HOUSE RN, Tika Hernandez, HOUSE RN, Mary Meléndez, HOUSE RN, Cathleen Moran, EARLY CHILDHOOD SERVICES COORDINATOR, Abdirahman Bella, HOUSE RN, Leslie Rao, HOUSE RN, Madalyn Julien, HOUSE RN, Ro Bernard, HOUSE RN, Carter Charles, HOUSE RN, Mckayla Abraham PA-C, Eli Fu, DNP, Razia Figueroa, DNP, Keri Walker, HOUSE RN, Sherrie Rea, HOUSE RN, Moon Waldrop, HOUSE RN, Ethel Soto, HOUSE RN, Jazzy Javier, HOUSE RN, Shelli Menon, HOUSE RN [facility] IN-PATIENT SERVICE [facility] Progress Note 01/27/2022 11:00 AM Name: Tip Ansari Acct: [id number] Room: IP Day: 7 Admit Date: 01/20/2022 [...] year old gentleman who initially presented to [facility] ED from the local [place] [facility] after he developed acute onset chills and shaking. He noted a wound to his left foot as well. Onset was abrupt, as he felt well earlier in the day. Patient was [place] [facility] [place] MRSA bacteremia with tricuspid [...] vancomycin and patient was [place] [facility] [place] imaging in the ER revealed no [...] drug use. Drugs: Cocaine, Opiates , Marijuana ([place]), and Methamphetamines (Crystal Meth). He reports that [...] Results Component Value Date PHART 7.380 12/16/2020 FQR4OSD 44.5 12/16/2020 PO2ART 94.4 12/16/2020 HIC3TAD 25.7 12/16/2020 NBEA NOT REPORTED 12/16/2020 PBEA 0.3 12/16/2020 [id number] 97.1 12/16/2020 FIO2 28 12/16/2020 Lab Results [...] 01/23/2022 Yes Acute osteomyelitis of left calcaneus ([facility]) 01/26/2022 Yes Plan: 1. Sepsis likely due [...] were not included. [facility] - Infectious diseases evaluation Progress Note admission date 01/20/2022 reason for consultation: Sepsis Vanco allergy Impression : Current: Left calcaneal Osteomyelitis Partially torn left Achilles tendon with Achilles tendonitis Septic bursitis of left heel. s/p I&D 01/26/22 Currently on doxycyline because of allergic reaction to Vancomycin Vancomycin reaction- Tachycardia, fever, red neck syndrome in [place] s/p 2 doses of Vancomycin. Likely serotonin [...] foot I&D on 01/26/22 Infection Control Recommendations [place] Precautions Contact Isolation Antimicrobial Stewardship Recommendations Simplification of therapy IV to oral conversion Coordination ofOutpatient Care: Estimated Length of IV antimicrobials: Patient will need Midline / picc Catheter Insertion: Patient will need SNF: Patient will need outpatient wound care: History of Present Illness: Initial history: Tip Ansari is a 42 y.o.-year-old male sent [place] [facility] because of rigors and fever as well as a left foot wound that seems to [place] [facility] Recently seen 12/13/[address] Andrea at [facility] for MRSA septicemia, right knee septic arthritis, [...] Whole Blood: 3.3 High Sed Rate58 High Bxnguaotkvtzy11.47 High Micro: Blood: 12-13-21: MRSA x 2 [...] use: Yes Types: Cocaine, Opiates , Marijuana ([place]), Methamphetamines (Crystal Meth) Comment: quit heroin Nov [...] Friends and Family: Not on file Attends Confucianist Services: Not on file Active Member of [...] Contains abnormal data Culture, Blood 1 Order: [id number] Status: Final result Visible to patient: No [...] Martinez AT 1440 ON 12/14/2021 Resulting Agency [facility] Susceptibility Methicillin resistant staphylococcus aureus (4) Antibiotic [...] be extrapolated by contextual diversion. Chasity Matos, POULTRY CULLER - HOUSE RN ATTESTATION: I have discussed the case, including pertinent history and exam findings with the POULTRY CULLER. I have evaluated the History, physical findings and pictures of the patient and the hall elements of the encounter have been performed by me. I have reviewed the laboratory data, other diagnostic studies and discussed them with the POULTRY CULLER. I have updated the medical record where necessary. I agree with the assessment, plan and orders as documented by the POULTRY CULLER. Tariq Dumont MD. Office: Perfect serve / office [phone] Images from the original note were not included. [facility] - Infectious diseases evaluation admission date 01/20/2022 reason for consultation: Sepsis Vanco allergy Impression : Current: Vancomycin reaction- Tachycardia fever red neck syndrome in [place] Pulmonary septic emboli, MRSA -residual lesions remain [...] red neck syndrome infection with fever in [place] and again here Label allergic to vanco [...] condition carries increased mortality Infection Control Recommendations [place] Precautions Contact Isolation Antimicrobial Stewardship Recommendations Simplification of therapy IV to oral conversion Coordination ofOutpatient Care: Estimated Length of IV antimicrobials: Patient will need Midline / picc Catheter Insertion: Patient will need SNF: Patient will need outpatient wound care: History of Present Illness: Initial history: Tip Ansari is a 42 y.o.-year-old male sent [place] patient [place] [facility] because of rigors and fever as well as the left foot wound that seems to [place] [facility] Recently seen 12/2021 by ky LONG for MRSA bacteremia, right knee septic [...] Acid, Whole Blood3.3 High Sed Rate58 High Bpevbrjbmjzom26.47 High Micro: BC One f two, 01/21 [...] use: Yes Types: Cocaine, Opiates , Marijuana ([place]), Methamphetamines (Crystal Meth) Comment: quit heroin Nov [...] Friends and Family: Not on file Attends Confucianist Services: Not on file Active Member of [...] Andrea MD Office: Perfect serve / office [phone] Images from the original note were not included. [facility] Office: [phone] Mikie Rodriguez DO, Theo Lerma DO, Stuart [...] Quintero CNP, Tika Hernandez CNP, Mary Meléndez, HOUSE RN, Cathleen Moran, EARLY CHILDHOOD SERVICES COORDINATOR, Abdirahman Bella, PABLO, Leslie Rao CNP, Madalyn Julien, PABLO, Ro Bernard, PABLO, Carter Charles CNP, Mckayla Abraham PA-C, Eli Fu DNP, Razia Figueroa DNP, Keri Walker, PABLO, Sherrie Rea, PABOL, Moon Waldrop CNP, Ethel Soto HOUSE RN, Jazzy Javier CNP, Shelli Menon CNP [facility] IN-PATIENT SERVICE [facility] Progress Note 01/26/2022 2:36 PM Name: Tip Ansari Acct: [id number] Room: [facility] IP Day: 6 Admit Date: 01/20/2022 10:23 [...] year old gentleman who initially presented to [facility] ED from the local [place] [facility] after he developed acute onset chills and shaking. He noted a wound to his left foot as well. Onset was abrupt, as he felt well earlier in the day. [place] [facility] [place] bacteremia with tricuspid [...] vancomycin and patient was [place] back [place] [facility] [place] imaging in the ER revealed no [...] drug use. Drugs: Cocaine, Opiates , Marijuana ([place]), and Methamphetamines (Crystal Meth). He reports that [...] Results Component Value Date PHART 7.380 12/16/2020 [id number] 44.5 12/16/2020 PO2ART 94.4 12/16/2020 [id number] 25.7 12/16/2020 NBEA NOT REPORTED 12/16/2020 PBEA 0.3 12/16/2020 [id number] 97.1 12/16/2020 FIO2 28 12/16/2020 Lab Results [...] is a 42 y.o. male seen at [facility] for possible septic arthritis of the left [...] IV. Nurse stopped iv 21:58 Nurse notified blood bank calendar control clerk NURSERY WORKER Yoly Quintero. Ordered benadryl and morphine. Notified [...] were not included. [facility] - Infectious diseases evaluation admission date 01/20/2022 reason for consultation: Sepsis Vanco allergy Impression : Current: Vancomycin reaction- Tachycardia fever red neck syndrome in [place] Pulmonary septic emboli, MRSA -cavitations improved, nodules [...] red neck syndrome infection with fever in [place] and again here Label allergic to vanco [...] condition carries increased mortality Infection Control Recommendations [place] Precautions Contact Isolation Antimicrobial Stewardship Recommendations Simplification of therapy IV to oral conversion Coordination ofOutpatient Care: Estimated Length of IV antimicrobials: Patient will need Midline / picc Catheter Insertion: Patient will need SNF: Patient will need outpatient wound care: History of Present Illness: Initial history: Tip Ansari is a 42 y.o.-year-old male sent [place] patient [place] [facility] because of rigors and fever as well as the left foot wound that seems to have started suddenly in [place] [facility] Recently seen 12/2021 by me ALVES for [...] Acid, Whole Blood3.3 High Sed Rate58 High Jhizohxxesvyq15.47 High Micro: BC One f two, 01/21 [...] use: Yes Types: Cocaine, Opiates , Marijuana ([place]), Methamphetamines (Crystal Meth) Comment: quit heroin Nov [...] Friends and Family: Not on file Attends Confucianist Services: Not on file Active Member of [...] Andrea MD Office: Perfect serve / office [phone] Comprehensive Nutrition Assessment Type and Reason for [...] muscle mass loss Fluid Accumulation: (Moderate) Extremities Potato Chip Sorter Strength: Not Performed Estimated Daily Nutrient Needs: [...] kg) (12/13/21 bed scale per chart review) [place] Body Weight: 178 lbs; % [place] Body Weight 90 % BMI: 21.7 BMI [...] Discharge Planning: Too soon to determine Contact: [phone] Images from the original note were not included. [facility] Office: [phone] Mikie Rodriguez DO, Theo Lerma DO, Stuart [...] Avila MD, Alberto Perez MD, Teresa Quintero, HOUSE RN, Tika Hernandez HOUSE RN, Mary Meléndez, HOUSE RN, Cathleen Moran, CHANTALE, Abdirahman Bella, HOUSE RN, Leslie Rao HOUSE RN, Madalyn Julien, HOUSE RN, Ro Bernard, HOUSE RN, Carter Charles, HOUSE RN, KO HunterC, Eli Fu DNP, Razia Figueroa DNP, Keri Walker CNP, Sherrie Rea HOUSE RN, Moon Waldrop, HOUSE RN, Ethel Soto HOUSE RN, Jazzy Javier HOUSE RN, Shelli Menon, HOUSE RN [facility] IN-PATIENT SERVICE [facility] Progress Note 01/25/2022 12:15 PM Name: Tip Ansari Acct: [id number] Room: IP Day: 5 Admit Date: 01/20/2022 [...] year old gentleman who initially presented to [facility] ED from the local [place] [facility] after he developed acute onset chills and shaking. He noted a wound to his left foot as well. Onset was abrupt, as he felt well earlier in the day. Patient was [place] [facility] [place] MRSA bacteremia with tricuspid [...] vancomycin and patient was [place] back [place] [facility] CT imaging in the ER revealed no [...] drug use. Drugs: Cocaine, Opiates , Marijuana (Laurel), and Methamphetamines (Crystal Meth). He reports that [...] Results Component Value Date PHART 7.380 12/16/2020 [id number] 44.5 12/16/2020 PO2ART 94.4 12/16/2020 [id number] 25.7 12/16/2020 NBEA NOT REPORTED 12/16/2020 PBEA 0.3 12/16/2020 [id number] 97.1 12/16/2020 FIO2 28 12/16/2020 Lab Results [...] to vancomycin - red man syndrome in [place] ED Left ankle soft tissue infection - [...] the original note were not included. 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 Cardiovascular Diseases Fellow [facility] Objective: Vitals: BP 115/81 Pulse 113 Temp [...] course per ID 3. Keep k>4, Mg>2 [employer] Sales Agent [facility]. [phone] Images from the original note were not included. Progress Note Podiatric Medicine and Surgery Subjective CC: Ankle pain, left Patient seen and examined at bedside. OR for I&D in the PM Patient is NPO HPI : Tip Ansari is a 42 y.o. male seen at [facility] for possible septic arthritis of the left [...] Intermed messaged regarding IV situation. Darnell Hernandez NURSERY WORKER placed order for PICC Line. Jacob JuanTile Sorter notified and stated he will notify PICC [...] to start new IV at bedside. perfectserved [place] primary team regarding multiple attempts tried to obtain IV access along with using ultrasound for IV...unsuccessful. Asked if we could try the house doctor blood bank calendar control clerk to place a line. Wilma Quintero, LUCIANO with [facility] said that was ok to do. [phone] jacob maciel for [facility] perfecto, Dr. Main Huitron. Came to the floor and spoke to pt. Regarding place a line or trying another peripheral IV with the ultrasound machine again but pt. Refused at this time. Dr. Huitron explained to sql report writer and pt. If he changes his mind to let him know and he will come back again this evening to try. Pt. Agreeable. Pt. Has a #20 Left AC, dressing has been changed. Will continue to use the one line available to instill his 3 separate antibiotics this evening. Tile Sorter, Drake stated he will try and contact the PICC team in the morning to get pt. Added to list for possible midline or PICC line. Images from the original note were not included. [facility] - Infectious diseases evaluation admission date 01/20/2022 reason for consultation: Sepsis Vanco allergy Impression : Current: Vancomycin reaction- Tachycardia fever red neck syndrome in [place] Pulmonary septic emboli, MRSA -cavitations improved, nodules [...] red neck syndrome infection with fever in [place] and again here Label allergic to vanco [...] eval for TV replacement Infection Control Recommendations [place] Precautions Contact Isolation Antimicrobial Stewardship Recommendations Simplification of therapy IV to oral conversion Coordination ofOutpatient Care: Estimated Length of IV antimicrobials: Patient will need Midline / picc Catheter Insertion: Patient will need SNF: Patient will need outpatient wound care: History of Present Illness: Initial history: Tip Ansari is a 42 y.o.-year-old male sent [place] patient [place] [facility] because of rigors and fever as well as the left foot wound that seems to have [place] suddenly [place] [facility] Recently seen 12/2021 by ky STV for MRSA bacteremia, right knee septic [...] Acid, Whole Blood3.3 High Sed Rate58 High Yvptcgdflljib19.47 High Micro: BC One f two, 01/21 [...] use: Yes Types: Cocaine, Opiates , Marijuana ([place]), Methamphetamines (Crystal Meth) Comment: quit heroin Nov [...] Friends and Family: Not on file Attends Confucianist Services: Not on file Active Member of [...] Andrea MD Office: Perfect serve / office [phone] Images from the original note were not included. [facility] Office: [phone] Mikie Rodriguez DO, Theo Lerma DO, Stuart [...] Avila MD, Alberto Perez MD, Teresa Quintero, HOUSE RN, Tika Hernandez, HOUSE RN, Mary Meléndez, HOUSE RN, Cathleen Moran, EARLY CHILDHOOD SERVICES COORDINATOR, Abdirahman Bella, HOUSE RN, Leslie Rao, HOUSE RN, Madalyn Julien, HOUSE RN, Ro Bernard, HOUSE RN, Carter Charles, HOUSE RN, Mckayla Abraham, PA-C, Eli Fu, DNP, Razia Figueroa, DNP, Keri Walker, HOUSE RN, Sherrie Rea, HOUSE RN, Moon Waldrop, HOUSE RN, Ethel Soto, HOUSE RN, Jazzy Javier, HOUSE RN, Shelli Menon, HOUSE RN [facility] IN-PATIENT SERVICE [facility] Progress Note 01/24/2022 2:24 PM Name: Tip Ansari Acct: [id number] Room: Day: 4 Admit Date: 01/20/2022 10:23 [...] year old gentleman who initially presented to [facility] ED from the local [place] [facility] after he developed acute onset chills and shaking. He noted a wound to his left foot as well. Onset was abrupt, as he felt well earlier in the day. Patient was [place] [facility] [place] bacteremia with tricuspid [...] vancomycin and patient was [place] back [place] [facility] CT imaging in the ER revealed no [...] drug use. Drugs: Cocaine, Opiates , Marijuana (La[place]), and Methamphetamines (Crystal Meth). He reports that [...] Results Component Value Date PHART 7.380 12/16/2020 [id number] 44.5 12/16/2020 PO2ART 94.4 12/16/2020 QCF5YFL 25.7 12/16/2020 NBEA NOT REPORTED 12/16/2020 PBEA 0.3 12/16/2020 [id number] 97.1 12/16/2020 FIO2 28 12/16/2020 Lab Results [...] to vancomycin - red man syndrome in [place] ED 5. Left ankle soft tissue infection [...] ordered, consent obtained this patient was in [facility]: Consent consists of incision and drainage with debridement of all nonviable soft tissue and bone, bone culture, soft tissue culture, possible wound VAC HPI : Tip Ansari is a 42 y.o. male seen at [facility] for possible septic arthritis of the left [...] were not included. [facility] - Infectious diseases evaluation admission date 01/20/2022 reason for consultation: Sepsis Vanco allergy Impression : Current: Vancomycin reaction- Tachycardia fever red neck syndrome in [place] Pulmonary septic emboli, MRSA -cavitations improved, nodules [...] red neck syndrome infection with fever in [place] and again here Label allergic to vanco [...] MRSA septic pulm emboli Infection Control Recommendations [place] Precautions Contact Isolation Antimicrobial Stewardship Recommendations Simplification of therapy IV to oral conversion Coordination ofOutpatient Care: Estimated Length of IV antimicrobials: Patient will need Midline / picc Catheter Insertion: Patient will need SNF: Patient will need outpatient wound care: History of Present Illness: Initial history: Tip Ansari is a 42 y.o.-year-old male sent [place] [facility] because of rigors and fever as well as the left foot wound that seems to have started suddenly [place] [facility] Recently seen 12/2021 by ky STJered for MRSA bacteremia, right knee septic [...] Acid, Whole Blood3.3 High Sed Rate58 High Veptjkqmucbzv57.47 High Micro: BC One f two, 01/21 [...] use: Yes Types: Cocaine, Opiates , Marijuana (Laurel), Methamphetamines (Crystal Meth) Comment: quit heroin Nov [...] Friends and Family: Not on file Attends Confucianist Services: Not on file Active Member of [...] Andrea MD Office: Perfect serve / office [phone] Images from the original note were not [...] is a 42 y.o. male seen at [facility] for possible septic arthritis of the left [...] from the original note were not included. [facility] Office: [phone] Mikie Rodriguez DO, Theo Lerma DO, Stuart Natarajan DO, Harpal Tran DO, Prashanth Sadler MD, Deana Raza MD, Florencia Canela MD, Tess Ford MD, Yuliana Saenz MD, Leodan Mak MD, Marimar Ren MD, Fabricio Syed DO, Kyle Broussard DO, Juan Driver MD, Sophai Agustin DO, Lyle Woods MD, Jodi Bain MD, Palomo Drummond MD, Johann Rodriguez DO, Radha Avila MD, Alberto Perez MD, Teresa Quintero CNP, Tika Hernandez HOUSE RN, Mary Meléndez, HOUSE RN, Cathleen Moran, EARLY CHILDHOOD SERVICES COORDINATOR, Abdirahman Bella, HOUSE RN, Leslie Rao, HOUSE RN, Madalyn Julien, HOUSE RN, Ro Bernard, HOUSE RN, Carter Charles, PABLO, Mckayla Abraham PA-C, Eli Fu, DNP, Razia Figueroa, FÉLIX, Keri Walker, HOUSE RN, Sherrie Rea, HOUSE RN, Moon Waldrop, HOUSE RN, Ethel Soto, HOUSE RN, Jazzy Javier, HOUSE RN, Shelli Menon, HOUSE RN [facility] IN-PATIENT SERVICE [facility] Progress Note 01/23/2022 8:25 AM Name: Tip Ansari Acct: [id number] Room: Day: 3 Admit Date: 01/20/2022 10:23 [...] year old gentleman who initially presented to [facility] ED from the local [place] [facility] after he developed acute onset chills and shaking. He noted a wound to his left foot as well. Onset was abrupt, as he felt well earlier in the day. Patient was [place] [facility] [place] bacteremia with tricuspid [...] vancomycin and patient was discharged back to [place] [facility] CT imaging in the ER revealed no [...] drug use. Drugs: Cocaine, Opiates , Marijuana (Laurel), and Methamphetamines (Crystal Meth). He reports that [...] Results Component Value Date PHART 7.380 12/16/2020 [id number] 44.5 12/16/2020 PO2ART 94.4 12/16/2020 [id number] 25.7 12/16/2020 NBEA NOT REPORTED 12/16/2020 PBEA 0.3 12/16/2020 [id number] 97.1 12/16/2020 FIO2 28 12/16/2020 Lab Results [...] to vancomycin - red man syndrome in [place] ED 4. Left ankle soft tissue infection - r/o osteomyelitis. MRI pending. Podiatry following. 5. Heroin abuse - SW to assist. Patient will return to [place] [facility] at [place]/c if able. 6. History of Hepatitis C 7. Essential hypertension - continue Maxide 8. Labs today 9. PICC vs midline at ID's discretion FABRICIO SYED DO 01/23/2022 8:25 AM Images from the original note were not included. [facility] Office: [phone] Mikie Rodriguez DO, Theo Lerma DO, Stuart [...] Avila MD, Alberto Perez MD, Teresa Quintero HOUSE RN, Tika Hernandez HOUSE RN, Mary Meléndez, HOUSE RN, Cathleen Moran, EARLY CHILDHOOD SERVICES COORDINATOR, Abdirahman Bella, HOUSE RN, Leslie Rao HOUSE RN, Madalyn Julien, HOUSE RN, Ro Bernard, HOUSE RN, Carter Charles CNP, DONOVAN Hunter-Junior, Eli Fu, FÉLIX, Razia iFgueroa DNP, Keri Walker, HOUSE RN, Sherrie Rea, HOUSE RN, Moon Waldrop HOUSE RN, Ethel Soto HOUSE RN, Jazzy Javier CNP, Shelli Menon HOUSE RN IN-PATIENT SERVICE [facility] Progress Note 01/22/2022 6:57 PM Name: Tip Ansari Acct: [id number] Room: IP Day: 2 Admit Date: 01/20/2022 10:23 PM PCP: No primary care provider on file. Code Status: Full Code Subjective: C/C: Sepsis Interval History Status: Ankle pain better controlled No further drainage from wound Patient still feels somewhat anxious Reporting diaphoresis at night Data Base Updates: Afebrile Hgfxyvb116 High Hemoglobin A1C5.6 Blood cultures remain negative Brief History: As documented in the medical record: Tip Ansari is a 42 y.o. Non- / non male who presents with No chief complaint on file and is admitted to the hospital for the management of Sepsis (HCC). Patient presents to [place] emergency room from the local [place] [facility] after he developed abrupt onset of chills and shaking and noting a wound to his left foot. Patient states that he woke up today feeling normal and as he was watching TV he had a sudden onset of feeling cold which then extended into course shaking and shivering despite covering up with a blanket and drinking warm fluids. Patient [facility] [place] [facility] [place] been using heroin He is back in [place] [facility] for outstanding [facility] and probation violations Past Medical History: has a past medical history of Abscess, Chronic hepatitis C without hepatic coma (HCC), COPD (chronic obstructive pulmonary disease) (HCC), Depression, and Drug addiction (HCC). Social History: reports that he has quit smoking. He has never used smokeless tobacco. He reports current drug use. Drugs: Cocaine, Opiates , Marijuana ([place]), and Methamphetamines (Crystal Meth). He reports that [...] Results Component Value Date PHART 7.380 12/16/2020 QSL5VDR 44.5 12/16/2020 PO2ART 94.4 12/16/2020 [id number] 25.7 12/16/2020 NBEA NOT REPORTED 12/16/2020 PBEA 0.3 12/16/2020 [id number] 97.1 12/16/2020 FIO2 28 12/16/2020 Lab Results [...] were not included. [facility] - Infectious diseases evaluation admission date 01/20/2022 reason for consultation: Sepsis Vanco allergy Impression : Current: Vancomycin reaction- Tachycardia fever red neck syndrome in [place] Pulmonary septic emboli, MRSA -cavitations improved, nodules [...] red neck syndrome infection with fever in [place] and again here Label allergic to vanco Left ankle MRI looking for a septic joint or tendinitis BC nathaniel albicans x 1, explains elevated procal despite stable appearance Asking for GIANFRANCO Start fluconazole 01/22 Keep doxy for pulm nodules - to help resolve past MRSA septic pulm emboli Infection Control Recommendations [place] Precautions Contact Isolation Antimicrobial Stewardship Recommendations Simplification of therapy IV to oral conversion Coordination ofOutpatient Care: Estimated Length of IV antimicrobials: Patient will need Midline / picc Catheter Insertion: Patient will need SNF: Patient will need outpatient wound care: History of Present Illness: Initial history: Tip Ansari is a 42 y.o.-year-old male sent [place] patient [place] [facility] because of rigors and fever as well as the left foot wound that seems to have started suddenly in [place] [facility] Recently seen 12/2021 by ky LONG for MRSA bacteremia, right knee septic [...] Acid, Whole Blood3.3 High Sed Rate58 High Eytwceslvxujq25.47 High Micro: BC One f two, 01/21 [...] use: Yes Types: Cocaine, Opiates , Marijuana ([place]), Methamphetamines (Crystal Meth) Comment: quit heroin Nov [...] Friends and Family: Not on file Attends Confucianist Services: Not on file Active Member of [...] Andrea MD Office: Perfect serve / office [phone] Physical Therapy Facility/Department: [facility] CAR 2 Daily Treatment Note NAME: [...] original note were not included. Occupational Therapy [facility] Occupational Therapy Not Seen Note DATE: 01/22/2022 [...] loss Fluid Accumulation: No significant fluid accumulation Potato Chip Sorter Strength: Not Performed Estimated Daily Nutrient Needs: [...] kg) (12/13/21 bed scale per chart review) [place] Body Weight: 178 lbs; % [place] Body Weight 90.4 % BMI: 21.8 BMI [...] Discharge Planning: Too soon to determine Contact: [phone] Physical Therapy Facility/Department: [facility] 2 Initial Assessment NAME: Tip Ansari [...] Ambulation Assistance: Independent Transfer Assistance: Independent Active Forming Mill Operator: No Cognition Cognition Overall Cognitive Status: WNL [...] Treatment Minutes: 13 Minutes Liz Rose PT [facility] Pharmacokinetic Monitoring Service - Vancomycin Tip [...] from the original note were not included. [facility] Office: [phone] Mikie Rodriguez DO, Theo Lerma DO, Stuart Natarajan DO, Harpal Tran DO, Prashanth Sadler MD, Deana Raza MD, Florencia Canela MD, Tess Ford MD, Yuliana Saenz MD, Leodan Mak MD, Marimar Ren MD, Fabricio Syed DO, Kyle Broussard DO, Juan Driver MD, Sophia Agustin DO, Lyel Woods MD, Jodi Bain MD, Palomo Drummond MD, Johann Rodriguez DO, Radha Avila MD, Alberto Perez MD, Teresa Quintero CNP, Tika Hernandez CNP, Mary Meléndez, PABLO, Cathleen Moran, CHANTALE, Abdirahman Bella, PABLO, Leslie Rao, PABLO, Madalyn Julien, PABLO, Ro Bernard, PABLO, Carter Charles, PABLO, Mckayla Abraham PA-C, Eli Fu, FÉLIX, Razia Figueroa, FÉLIX, Keri Walker, PABLO, Sherrie Rea, PABLO, Moon Waldrop, PABLO, Ethel Soto, PABLO, Jazzy Javier CNP, Shelli Menon CNP IN-PATIENT SERVICE [facility] Progress Note 01/21/2022 1:33 PM Name: Tip Ansari Acct: [id number] Room: IP Day: 1 Admit Date: 01/20/2022 10:23 PM PCP: No primary care provider on file. Code Status: Full Code Subjective: C/C: Sepsis Interval History Status: Not much change Still reporting ankle pain Not sleeping Feels anxious Data Base Updates: Patient has been afebrile Myckwad023 High mg/dL WUT68zq/dL CREATININE0.73mg/dL Calcium8.6mg/dL Vozepc728ijcj/L Potassium3.9 Lactic Acid, Whole Blood3.3 High Sed Rate58 High Ankle x-ray: Impression: 1. Soft tissue swelling along the heel of the left foot. No evidence of osteomyelitis. Blood cultures negative Specimen Source: Blood Specimen Description.BLOOD Special Qymnsmvw3JU R WRIST CultureNO GROWTH 12 HOURS Brief History: As documented in the medical record: Tip Ansari is a 42 y.o. Non- / non male who presents with No chief complaint on file and is admitted to the hospital for the management of Sepsis (HCC). Patient presents to [place] [facility] room from the local [place] [facility] after he developed abrupt onset of chills and shaking and noting a wound to his left foot. Patient states that he woke up today feeling normal and as he was watching TV he had a sudden onset of feeling cold which then extended into course shaking and shivering despite covering up with a blanket and drinking warm fluids. Patient was a previous [facility] [place] [facility] [...] been using heroin He is back in [place] [facility] for [facility] and probation violations Past Medical History: has a past medical history of Abscess, Chronic hepatitis C without hepatic coma (HCC), COPD (chronic obstructive pulmonary disease) (HCC), Depression, and Drug addiction (HCC). Social History: reports that he has quit smoking. He has never used smokeless tobacco. He reports current drug use. Drugs: Cocaine, Opiates , Marijuana ([place]), and Methamphetamines (Crystal Meth). He reports that [...] Results Component Value Date PHART 7.380 12/16/2020 FFE4ACO 44.5 12/16/2020 PO2ART 94.4 12/16/2020 BDA9UNV 25.7 12/16/2020 NBEA NOT REPORTED 12/16/2020 PBEA 0.3 12/16/2020 [id number] 97.1 12/16/2020 FIO2 28 12/16/2020 Lab Results [...] 01/21/2022 1:33 PM documented in this encounter [employer] Phone: 01-30-2022 Hospital Discharge instructions Kyle Broussard [...] Information Primary Emergency Contact: Alisa Ansari Address: [place] [id number] Relation: Parent Secondary Emergency Contact: jaida greenberg Mobile Relation: Aunt/Uncle Past Surgical History: Past Surgical History: Procedure Laterality Date ABSCESS DRAINAGE Left 2019 arm APPENDECTOMY FINGER SURGERY Right 5 th finger tendon repair FOOT DEBRIDEMENT Left 01/26/2022 INCISION AND DRAINAGE, BONE LEFT CALCANEOUS performed by Tip Grewal DPM at [facility] OR FOOT SURGERY Left 01/26/2022 INCISION AND DRAINAGE, BONE LEFT CALCANEOUS (Left Foot) PICC INSERTION VASCULAR ACCESS TEAM 01/25/2022 TYMPANOSTOMY TUBE PLACEMENT Bilateral Immunization History: There is no immunization history on file for this patient. 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[facility]) M00.061 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 Moderate tricuspid regurgitation I07.1 Hyperkalemia E87.5 Endocarditis I38 Sepsis ([facility]) A41.9 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 Hyperglycemia R73.9 Sepsis due to Nathaniel species without acute organ dysfunction ([facility]) B37.7, R65.20 Sinus tachycardia R00.0 Septic bursitis of Achilles M71.10 Acute osteomyelitis of left calcaneus ([facility]) M86.172 Opiate withdrawal ([facility]) F11.23 Acute hematogenous osteomyelitis of left ankle ([facility]) M86.072 Isolation/Infection: Isolation Contact Patient Infection Status [...] (79.2 kg) Mental Status: {IP PT MENTAL STATUS:54179} IV Access: { CARLINE IV ACCESS:800872208} Nursing Mobility/ADLs: Walking {CHP DME ADLs:454554454} Transfer {CHP DME ADLs:716952079} Bathing {CHP DME ADLs:405319341} Dressing {CHP DME ADLs:161419039} Toileting {CHP DME ADLs:405536895} Feeding {CHP DME ADLs:164321014} Neuropsychiatric Aide {CHP DME ADLs:964535516} Med Delivery { CARLINE MED Delivery:531493273} Wound Care Documentation and Therapy: Wound 01/20/22 [...] Bladder: {YES / NO:} Urinary Catheter: {Urinary Catheter:666430997} Colostomy/Ileostomy/Ileal Conduit: {YES / NO:} Date of Last BM: Intake/Output Summary (Last 24 hours) at 01/30/2022 1344 Last data filed at 01/30/2022 1020 Gross per 24 hour Intake 540 ml Output 3480 ml Net -2940 ml I/O last 3 completed shifts: In: 2897 [P.O.:1620; I.V.:927; IV Piggyback:350] Out: 4475 [Urine:4475] Safety Concerns: { CARLINE Safety Concerns:675286611} Impairments/Disabilities: { CARLINE Impairments/Disabilities:23854536 3} Nutrition Therapy: Current Nutrition Therapy: { CARLINE Diet List:854486002} Routes of Feeding: {CHP DME Other Feedings:627471702} Liquids: {[employer]aper liquid thickness:85055} Daily Fluid Restriction: {CHP DME Yes amt example:471399035} Last Modified Barium Swallow with Video (Video Swallowing Test): {Done Not Done Date:} Treatments at the Time of Hospital Discharge: Respiratory Treatments: Oxygen Therapy: {Therapy; copd oxygen:71506} Ventilator: { CC Vent List:446758796} Rehab Therapies: {THERAPEUTIC INTERVENTION:8060240649} Weight Bearing Status/Restrictions: {[facility] Weight Bearin} Other Medical Equipment (for information only, NOT a DME order): {EQUIPMENT:523779908} Other Treatments: Patient's personal belongings (please select all that are sent with patient): {CHP DME Belongings:427377259} RN SIGNATURE: {Esignature:057939546} CASE MANAGEMENT/SOCIAL WORK SECTION Inpatient Status Date: Readmission Risk Assessment Score: Readmission Risk Risk of Unplanned Readmission: 22 Discharging to Facility/ Agency Name: Address: Phone: Fax: Dialysis Facility (if applicable) Name: Address: Dialysis Schedule: Phone: Fax: Cage Shift Manager/Menhaden Vessel Pilot signature: {Esignature:497489364} PHYSICIAN SECTION Prognosis: Good Condition at Discharge: [...] schedule or confirm your appointment. Call your [employer] office if you have any questions or concerns. documented in this encounter [employer] Phone: 01-10-2022 Hospital Discharge instructions Jessica Barrow MD - 01/10/2022 Discussed results with patient. He has no intention of hurting self. We discussed patient going to drug rehab. Patient has no primary care thus was referred to Dr. More. Patient is also continue going to [facility] for his vancomycin injection weekly. documented in this encounter [employer] Phone: 12-20-2021 History of Present illness Narrative Patient to IR for right shoulder aspirate. JR DONOVAN and LYLY/HANH RTs at bedside. Site prepped and draped, area numbed with lidocaine. Access obtained and scant amount red fluid obtained by lavage. Specimen to be sent to lab by sql report writer. Access removed and band aid placed to site. Patient tolerated well and taken to IR holding area awaiting transport. Images from the original note were not included. [facility] - Infectious diseases evaluation admission date 12/13/2021 [...] 45.9 anticipate 6 weeks iv Ab at [place] Due to ongoing drug use, dalbavancin weekly x 2, then will need to repeat, vs FU w po doxy FU outpt Need 2 BC in [address] chest in a month Infection Control Recommendations [place] Precautions Contact Isolation Antimicrobial Stewardship Recommendations Simplification [...] he is a heroin user Went to [place] with shortness of breath and fever, hypoxic [...] with right-sided PICC line. C T scan [facility] 12/11 suggestive of multifocal septic emboli with [...] use: Yes Types: Cocaine, Opiates , Marijuana ([place]), Methamphetamines (Crystal Meth) Comment: quit heroin Nov [...] Friends and Family: Not on file Attends Confucianist Services: Not on file Active Member of [...] from the original note were not included. [employer] Progress Note Date: 12/20/2021 Patient name: Tip [...] while caught snoring drugs in room per system auditor of Systems Medications: Scheduled Meds: [START ON [...] please call back with any concerns [employer] [facility]. [phone] [facility] Pharmacokinetic Monitoring Service - Vancomycin Consulting [...] loss Fluid Accumulation: No significant fluid accumulation Potato Chip Sorter Strength: Not Performed Estimated Daily Nutrient Needs: Energy (kcal): 25-28 kcal/kg = 1994-7531 kcals/day; Weight Used for Energy Requirements: Current [...] lb (85.7 kg) (05/2021 per chart review) [place] Body Weight: 184 lbs; % [place] Body Weight 93.6 % BMI: 22.7 BMI [...] Discharge Planning: Too soon to determine Contact: [phone] Physical Therapy Facility/Department: [facility] RENAL//MED SURG Daily Treatment Note NAME: [...] the original note were not included. 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 [phone] Images from the original note were not included. [facility] - Infectious diseases evaluation admission date 12/13/2021 [...] had septic pulmonary emboli Infection Control Recommendations [place] Precautions Contact Isolation Antimicrobial Stewardship Recommendations Simplification [...] he is a heroin user Went to [place] with shortness of breath and fever, hypoxic [...] with right-sided PICC line. C T scan [facility] 12/11 suggestive of multifocal septic emboli with [...] use: Yes Types: Cocaine, Opiates , Marijuana ([place]urel), Methamphetamines (Crystal Meth) Comment: quit heroin Nov [...] Friends and Family: Not on file Attends Confucianist Services: Not on file Active Member of [...] Internal Medicine Resident, PGY-1 Infectious Disease Service, [facility]. I have discussed the care of the [...] from the original note were not included. [facility] Office: [phone] Mikie Rodriguez DO, Theo Lerma DO, Stuart Natarajan DO, Harpal Tran DO, Prashanth Sadler MD, Deana Raza MD, Florencia Canela MD, Tess Ford MD, Yuliana Saenz MD, Leodan Mak MD, Marimar Ren MD, Fabricio Syed DO, Kyle Broussard DO, Juan Driver MD, Sophia Agustin DO, Lyle Woods MD, Jodi Bain MD, Plaomo Drummond MD, Radha Avila MD, Alberto Perez MD, Teresa Quintero, HOUSE RN, Tika Hernandez, HOUSE RN, Mary Meléndez, HOUSE RN, Cathleen Moran, [facility], Abdirahman Bella, HOUSE RN, Leslie Rao, HOUSE RN, Madalyn Dixon, HOUSE RN, Ro Bernard, HOUSE RN, Carter Charles, HOUSE RN, Mckayla Abraham PA-C, Eli Fu, DNP, Razia Figueroa, DNP, Keri Walker, HOUSE RN, Sherrie Rea, HOUSE RN, Moon Waldrop, HOUSE RN, Ethel Soto, HOUSE RN, Jazzy Javier, HOUSE RN, Shelli Menon, HOUSE RN [facility] IN-PATIENT SERVICE [facility] Progress Note 12/19/2021 8:19 AM Name: Tip Ansari Acct: [id number] Room: [address] [place] [address] Day: 6 Admit Date: 12/13/2021 6:34 PM [...] with weakness. He was directly admitted from [facility] Dec 13 for the management of Septic embolism (HCC). Pt has used Heroin intermittently several years Presented to [facility] ED 12/11 with 2 day [...] drug use. Drugs: Cocaine, Opiates , Marijuana ([place]urel), and Methamphetamines (Crystal Meth). He reports that [...] Results Component Value Date PHART 7.380 12/16/2020 BXW0RZM 44.5 12/16/2020 PO2ART 94.4 12/16/2020 ZKV7ILS 25.7 12/16/2020 NBEA NOT REPORTED 12/16/2020 PBEA 0.3 12/16/2020 V2XNBZMM 97.1 12/16/2020 FIO2 28 12/16/2020 Lab Results [...] seen. Mild MR noted. Calcium8.4 Low mg/dL [id number] Low mmol/L Potassium5.4 High Follow-up chest x-ray: [...] Training,Pain Management,Safety Education & Training,Self-Care / ADL AM-[facility] Score -[facility] Inpatient Daily Activity Raw Score: 19 (12/18/211642) [facility] Inpatient ADL T-Scale Score : 40.22 [...] (ADL) BREE Balderrama OTR/L Physical Therapy Facility/Department: [facility] RENAL//MED SURG Daily Treatment Note NAME: Tip Ansari : 1980 Date of Service: 12/18/2021 No chief complaint on file. Weakness, chest pain, shortness of breath Tip Ansari is a 41 y.o. male who presents with weakness. Pt was admitted from [facility] Dec 13 for the management of [...] from the original note were not included. [facility] Office: [phone] Mikie Rodriguez DO, Theo Lerma DO, Stuart [...] Perez MD, Teresa Quintero CNP, Tika Hernandez HOUSE RN, Mary Meléndez, HOUSE RN, Cathleen Moran, EARLY CHILDHOOD SERVICES COORDINATOR, Abdirahman Bella, HOUSE RN, Leslie Rao, HOUSE RN, Madalyn Dixon, HOUSE RN, Ro Bernard, HOUSE RN, Carter Charles, HOUSE RN, KO HunterC, Eli Fu, DNP, Razia Figueroa, DNP, Keri Walker, HOUSE RN, Sherrie Rea, HOUSE RN, Moon Waldrop, HOUSE RN, Ethel Soto HOUSE RN, Jazzy Javier HOUSE RN, Shelli Menon HOUSE RN [facility] IN-PATIENT SERVICE [facility] Progress Note 12/18/2021 12:26 PM Name: Tip Ansari Acct: [id number] Room: 0316/0316-01 Day: 5 Admit Date: 12/13/2021 [...] with weakness. He was directly admitted from [facility] Dec 13 for the management of Septic embolism (HCC). Pt has used Heroin intermittently several years Presented to [facility] ED 12/11 with 2 day [...] drug use. Drugs: Cocaine, Opiates , Marijuana (Laurel), and Methamphetamines (Crystal Meth). He reports that [...] No results for input(s): PROT, LABALBU, LABA1C, Z0KANPY, U5NABCX, FT4, TSH, AST, ALT, LDH, GGT, ALKPHOS, LABGGT, BILITOT, BILIDIR, AMMONIA, AMYLASE, LIPASE, LACTATE, CHOL, HDL, LDLCHOLESTEROL, CHOLHDLRATIO, TRIG, VLDL, VTE80JH, PHENYTOIN, PHENYF, URICACID, POCGLU in the last 72 hours. ABG: Lab Results Component Value Date PHART 7.380 12/16/2020 MNS2HBD 44.5 12/16/2020 PO2ART 94.4 12/16/2020 UVH2TDB 25.7 12/16/2020 NBEA NOT REPORTED 12/16/2020 PBEA 0.3 12/16/2020 [id number] 97.1 12/16/2020 FIO2 28 12/16/2020 Lab Results [...] bolus of normal saline and monitor 9. materials management manager to help with discharge planning for outpatient IV antibiotics, can be discharged once that is arranged Marimar Rne MD 12/18/2021 12:26 PM Images from the original note were not included. [employer] Sales [employer] Progress Note Date: 12/18/2021 Patient name: Tip [...] echo after ATB course as OP [employer] [phone] Images from the original note were not included. [facility] - Infectious diseases evaluation admission date 12/13/2021 [...] weekly vs dalbavancin weekly Infection Control Recommendations [place] Precautions Contact Isolation Antimicrobial Stewardship Recommendations Simplification [...] he is a heroin user Went to [place] with shortness of breath and fever, hypoxic [...] 2 12/18 pending Imaging: C T scan [facility] 12/11 suggestive of multifocal septic emboli with [...] use: Yes Types: Cocaine, Opiates , Marijuana ([place]urel), Methamphetamines (Crystal Meth) Comment: quit heroin Nov [...] Friends and Family: Not on file Attends Confucianist Services: Not on file Active Member of [...] Internal Medicine Resident, PGY-1 Infectious Disease Service, [facility]. I have discussed the care of the [...] García, PGY-2 Orthopedic Surgery 4:33 AM 12/18/2021 [facility] Pharmacokinetic Monitoring Service - Vancomycin Consulting [...] were not included. [facility] - Infectious diseases evaluation Progress Note admission date 12/13/2021 reason for consultation: Septic pulmonary emboli Impression : Current: Pulmonary septic emboli with cavitary pneumonia MRSA septicemia Heroin use Chronic hepC Severe Allergy to PNC Discussion / summary of stay / plan of care Recommendations Continue Vanco for MRSA bacteremia GIANFRANCO to look for vegetations Repeat blood culture still negative Infection Control Recommendations [place] Precautions Contact Isolation Antimicrobial Stewardship Recommendations Simplification [...] he is a heroin user Went to [place] with shortness of breath and fever, hypoxic [...] wrist: No growth Imaging: C T scan [facility] 12/11 suggestive of multifocal septic emboli with [...] use: Yes Types: Cocaine, Opiates , Marijuana ([place]urel), Methamphetamines (Crystal Meth) Comment: quit heroin Nov [...] Friends and Family: Not on file Attends Confucianist Services: Not on file Active Member of [...] Dumont MD Office: Perfect [facility] / office [phone] Images from the original note were not included. [employer] Progress Note Date: 12/17/2021 Patient name: Tip [...] echo after ATB course as OP [employer] [facility]. [phone] Orthopedic Progress Note Patient: Tip Ansari, 41 [...] - Please reach out to ortho resident blood bank calendar control clerk with any questions - Follow up w/ Dr. Barajas as needed outpatient . Images from the original note were not included. [facility] Office: [phone] Mikie Rodriguez DO, Theo Lerma DO, Stuart Natarajan DO, Harpal Tran DO, Prashanth Sadler MD, Deana Raza MD, Florencia Canela MD, Tess Ford MD, Yuliana Saenz MD, Leodan Mak MD, Marimar Ren MD, Fabricio Syed DO, Kyle Broussard DO, Juan Driver MD, Sophia Agustin DO, Lyle Woods MD, Jodi Bain MD, Palomo Drummond MD, Radha Avila MD, Alberto Perez MD, Teresa Quintero, HOUSE RN, Tika Hernandez, HOUSE RN, Mary Meléndez, HOUSE RN, Cathleen Moran, EARLY CHILDHOOD SERVICES COORDINATOR, Abdirahman Bella, HOUSE RN, Leslie Rao, HOUSE RN, Madalyn Dixon, HOUSE RN, Ro Bernard, HOUSE RN, Carter Charles, HOUSE RN, Mckayla Abraham PA-C, Eli Fu, DNP, Rzaia Figueroa, DNP, Keri Walker, HOUSE RN, Sherrie Rea, HOUSE RN, Moon Waldrop, HOUSE RN, Ethel Soto, HOUSE RN, Jazzy Javier, HOUSE RN, Shelli Menon, HOUSE RN [facility] IN-PATIENT SERVICE [facility] Progress Note 12/17/2021 12:05 PM Name: Tip Ansari Acct: [id number] Room: [address] [place] [address] Day: 4 Admit Date: 12/13/2021 6:34 PM [...] with weakness. He was directly admitted from [facility] Dec 13 for the management of Septic embolism (HCC). Pt has used Heroin intermittently several years Presented to [facility] ED 12/11 with 2 day [...] drug use. Drugs: Cocaine, Opiates , Marijuana ([place]urel), and Methamphetamines (Crystal Meth). He reports that [...] Results Component Value Date PHART 7.380 12/16/2020 VKQ2DTK 44.5 12/16/2020 PO2ART 94.4 12/16/2020 QRA5NYL 25.7 12/16/2020 NBEA NOT REPORTED 12/16/2020 PBEA 0.3 12/16/2020 [id number] 97.1 12/16/2020 FIO2 28 12/16/2020 Lab Results [...] GI 7. Substance abuse outpatient rehab 8. materials management manager to help with discharge planning for outpatient IV antibiotics Marimar Ren MD 12/17/2021 12:05 PM Images from the original note were not included. [facility] - Infectious diseases evaluation admission date 12/13/2021 reason for consultation: Septic pulmonary emboli Impression : Current: Pulmonary septic emboli with cavitary pneumonia MRSA septicemia Heroin use Chronic hepC Allergy severe to PNC Other: Discussion / summary of stay / plan of care Recommendations Continue Vanco for MRSA bacteremia GIANFRANCO to look for vegetations Repeat blood culture still negative Infection Control Recommendations [place] Precautions Contact Isolation Antimicrobial Stewardship Recommendations Simplification [...] he is a heroin user Went to [place] with shortness of breath and fever, hypoxic [...] X 2 MRSA Imaging: C T scan [facility] 12/11 suggestive of multifocal septic emboli with [...] use: Yes Types: Cocaine, Opiates , Marijuana (Laurel), Methamphetamines (Crystal Meth) Comment: quit heroin Nov [...] Friends and Family: Not on file Attends Confucianist Services: Not on file Active Member of [...] Dumont MD Office: [facility] / office [phone] ATTESTATION: I have discussed the case, including [...] from the original note were not included. [facility] Office: [phone] Mikie Rodriguez DO, Theo Lerma DO, Stuart [...] Perez MD, Teresa Quintero CNP, Tika Hernandez HOUSE RN, Mary Meléndez HOUSE RN, Cathleen Moran, EARLY CHILDHOOD SERVICES COORDINATOR, Abdirahman Bella, HOUSE RN, Leslie Rao, HOUSE RN, Madalyn Dixon, HOUSE RN, Ro Bernard, HOUSE RN, Carter Charles, HOUSE RN, Mckayla Abraham PA-C, Eli Fu DNP, Razia Figueroa DNP, Keri Walker, PABLO, Sherrie Rea, PABLO, Moon Waldrop, PABLO, Ethel Soto CNP, Jazzy Javier CNP, Shelli Menon CNP [facility] IN-PATIENT SERVICE [facility] Progress Note 12/16/2021 12:34 PM Name: Tip Ansari Acct: [id number] Room: [address] [place] [address] IP Day: 3 Admit Date: 12/13/2021 6:34 [...] with weakness. He was directly admitted from [facility] Dec 13 for the management of Septic embolism (HCC). Pt has used Heroin intermittently several years Presented to [facility] ED 12/11 with 2 day [...] drug use. Drugs: Cocaine, Opiates , Marijuana ([place]), and Methamphetamines (Crystal Meth). He reports that [...] Results Component Value Date PHART 7.380 12/16/2020 TNT0KKI 44.5 12/16/2020 PO2ART 94.4 12/16/2020 CQK4DSL 25.7 12/16/2020 NBEA NOT REPORTED 12/16/2020 PBEA 0.3 12/16/2020 S1NBVGEL 97.1 12/16/2020 FIO2 28 12/16/2020 Lab Results [...] GI 7. Substance abuse outpatient rehab 8. materials management manager to help with discharge planning for outpatient IV antibiotics Marimar Ren MD 12/16/2021 12:34 PM Images from the original note were not included. [facility] - Infectious diseases evaluation admission date 12/13/2021 reason for consultation: Septic pulmonary emboli Impression : Current: Pulmonary septic emboli with cavitary pneumonia MRSA septicemia Heroin use Chronic hepC Allergy severe to PNC Other: Discussion / summary of stay / plan of care Recommendations Continue Vanco for MRSA bacteremia GIANFRANCO to look for vegetations Repeat blood culture still negative Infection Control Recommendations [place] Precautions Contact Isolation Antimicrobial Stewardship Recommendations Simplification [...] he is a heroin user Went to [place] with shortness of breath and fever, hypoxic [...] X 2 MRSA Imaging: C T scan [facility] 12/11 suggestive of multifocal septic emboli with [...] use: Yes Types: Cocaine, Opiates , Marijuana ([place]urel), Methamphetamines (Crystal Meth) Comment: quit heroin Nov [...] Friends and Family: Not on file Attends Confucianist Services: Not on file Active Member of [...] Andrea MD Office: [facility] / office [phone] Patient admitted, consent signed and questions answered. Patient ready for procedure. Call light to reach with side rails up 2 of 2. No family at bedside with patient. History and physical complete. Images from the original note were not included. [facility] Office: [phone] Mikie Rodriguez DO, Theo Lerma DO, Stuart [...] Perez MD, Teresa Quintero CNP, Tika Hernandez HOUSE RN, Mary Meléndez, HOUSE RN, Cathleen Moran, EARLY CHILDHOOD SERVICES COORDINATOR, Abdirahman Bella, PABLO, Leslie Rao CNP, Madalyn Dixon CNP, Ro Bernard, PABLO, Carter Charles, PABLO, Mckayla Abraham PA-C, Eli Fu DNP, Razia Figueroa DNP, Keri Walker, PABLO, Sherrie Rea CNP, Moon Waldrop CNP, Ethel Soto CNP, Jazzy Javier CNP, Shelli Menon, PABLO [facility] IN-PATIENT SERVICE [facility] Progress Note 12/15/2021 3:28 PM Name: Tip Ansari Acct: [id number] Room: 03104-11 Day: 2 Admit Date: 12/13/2021 [...] with weakness. He was directly admitted from [facility] Dec 13 for the management of Septic embolism (HCC). Pt has used Heroin intermittently several years Presented to [facility] ED 12/11 with 2 day [...] drug use. Drugs: Cocaine, Opiates , Marijuana ([place]), and Methamphetamines (Crystal Meth). He reports that [...] Results Component Value Date PHART 7.380 12/16/2020 LSR0DLE 44.5 12/16/2020 PO2ART 94.4 12/16/2020 PPN0ABD 25.7 12/16/2020 NBEA NOT REPORTED 12/16/2020 PBEA 0.3 12/16/2020 [id number] 97.1 12/16/2020 FIO2 28 12/16/2020 Lab Results [...] Internal Medicine Residency Program 12/15/2021, 4:34 PM [facility] Pharmacokinetic Monitoring Service - Vancomycin Consulting [...] RPH 12/15/2021 1:42 PM Physical Therapy Facility/Department: [facility] RENAL//MED SURG Initial Assessment NAME: Tip [...] Bed mobility Supine to Sit: Minimal assistance (BRAZING MACHINE OPERATOR AUTOMATIC for trunk progression) Sit to Supine: (pt [...] Progress Note PATIENT: BRIE ANSARIS CSN #: [id number] : 1980 ADMIT DATE: 12/13/2021 6:34 PM [...] with brown/yellow phlegm, Treatment: monitor, transfer from [facility], oxygen therapy. Thank You, Johann RN, CDS- email - [email or web address] cell- [phone] office hours [id number] Acute Respiratory Failure Clinical Indicators per 3M [...] from the original note were not included. [facility] Office: [phone] Mikie Rodriguez DO, Theo Lerma DO, Stuart Natarajan DO, Harpal Tran DO, Prashanth Sadler MD, Deana Raza MD, Florencia Canela MD, Tess Ford MD, Yuliana Saenz MD, Leodan Mak MD, Marimar Ren MD, Fabricio Syed DO, Kyle Broussard DO, Juan Driver MD, Sophia Agustin DO, Lyle Woods MD, Jodi Bain MD, Palomo Drummond MD, Radha Avila MD, Alberto Perez MD, Teresa Quintero, HOUSE RN, Tika Hernandez, HOUSE RN, Mary Meléndez, HOUSE RN, Cathleen Moran, EARLY CHILDHOOD SERVICES COORDINATOR, Abdirahman Bella, HOUSE RN, Leslie Rao, HOUSE RN, Madalyn Dixon, HOUSE RN, Ro Bernard, HOUSE RN, Carter Charles, HOUSE RN, Mckayla Abraham PA-C, Eli Fu, FÉLIX, Razia Figueroa, DNP, Keri Walker, HOUSE RN, Sherrie Rea, HOUSE RN, Moon Waldrop, HOUSE RN, Ethel Soto, HOUSE RN, Jazzy Javier, HOUSE RN, Shelli Menon, HOUSE RN [facility] IN-PATIENT SERVICE [facility] Progress Note 12/14/2021 2:34 PM Name: Tpi Ansari Acct: [id number] Room: [facility]/0316-[facility] Day: 1 Admit Date: 12/13/2021 6:34 [...] with weakness. He was directly admitted from [facility] Dec 13 for the management of Septic embolism (HCC). Pt has used Heroin intermittently several years Presented to [facility] ED 12/11 with 2 day [...] drug use. Drugs: Cocaine, Opiates , Marijuana ([place]), and Methamphetamines (Crystal Meth). He reports that [...] No results for input(s): PROT, LABALBU, LABA1C, Y8BSOFN, B7IXFIX, FT4, TSH, AST, ALT, LDH, GGT, ALKPHOS, LABGGT, BILITOT, BILIDIR, AMMONIA, AMYLASE, LIPASE, LACTATE, CHOL, HDL, LDLCHOLESTEROL, CHOLHDLRATIO, TRIG, VLDL, ZWX09AE, PHENYTOIN, PHENYF, URICACID, POCGLU in the last 72 hours. ABG: Lab Results Component Value Date PHART 7.380 12/16/2020 DNP1XGD 44.5 12/16/2020 PO2ART 94.4 12/16/2020 NJB3NRP 25.7 12/16/2020 NBEA NOT REPORTED 12/16/2020 PBEA 0.3 12/16/2020 M5RNGEGQ 97.1 12/16/2020 FIO2 28 12/16/2020 Lab Results [...] was ordered by ID Outpatient GI follow-up bench worker binding to help with outpatient rehab Replace potassium [...] loss Fluid Accumulation: No significant fluid accumulation Potato Chip Sorter Strength: Not Performed Estimated Daily Nutrient Needs: Energy (kcal): 25-27 kcal/kg = 9330-9487 kcals/day; Weight Used for Energy Requirements: Current [...] lb (85.7 kg) (05/2021 per chart review) [place] Body Weight: 184 lbs; % [place] Body Weight 92.4 % BMI: 22.4 BMI [...] Planning: Too soon to determine Contact: [address] [facility] Pharmacokinetic Monitoring Service - Vancomycin Tip [...] 12/14/2021 12:41 AM [facility]: [facility]21 Hospital Discharge instructions Chasity Walker [...] Dr. Barajas in his office. Call Call [phone] to schedule/confirm. 3rd floor infusion center at [facility] on 12-22-21 and 12-29-21 at 3pm documented in this encounter [employer] [facility] [employer] Phone: 12-16-2021 Note [facility] Vascular Upper Extremities Veins Procedure Patient Name COTY Date of Study 12/16/2021 TIP Boni Date of 1980 Gender Male Age 41 year(s) Race Room Number 0316 Height: 73 inch, 185.42 cm Corporate ID [id number] Weight: 170 pounds, 77.1 kg # Patient Acct [id number] BSA: 2.01 m^2 BMI: 22.43 kg/m^2 # MR # [id number] Customer Support Agent Vivienne Roach RVT Interpreting Physician Gordo Juárez [...] +----- (more content not included)... [facility] 12-16-2021 Note [facility] Vascular Lower Extremities DVT Study Procedure Patient Name COTY Date of Study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
--- NOTE | 2025-05-14 15:46 | XR_ITS ---
The [address] [address] Patient Name: RUTH ANSARI MRN: [facility]:[id number] date: 1980 Sex: M Assigned Patient Location: ER Current Patient Location: ER Accession/Order Number: [id number] Exam Date: 05/14/2025 16:15 Report Date: 05/14/2025 16:16 At the request of: TAE KHANNA MD Procedure: XR chest 1V PA CHEST: CLINICAL HISTORY: Dizziness COMPARISON: 05/06/2025 FINDINGS: Unremarkable cardiomediastinal. Lungs clear. No effusion or pneumothorax XR/XR chest 1V IMPRESSION: Negative acute pleural-parenchymal disease. Impression dictated by: Jorge Sultana M.D. 05/14/2025 4:16 PM Dictation Location: [place] [address] Electronically authenticated by: [id number] Date: 05/14/2025 16:16
--- NOTE | 2025-05-14 15:46 | ED_ITS ---
HPI HPI - General Adult General Chief complaint: Dizziness Stated complaint: dizzy Time Seen by Provider: 05/14/25 15:21 Source: patient Mode of arrival: walk-in Limitations: no limitations History of Present Illness HPI narrative: 45-year-old male presents to the emergency department for a chief complaint of dizziness. He states it started yesterday. He has been lightheaded. No chest pain or cough or shortness of breath. A week ago he was treated for a URI and feels better in that regard. No vomiting or diarrhea or complaints of chest or abdominal pain. He states his urine was not dark today Related Data Home Medications ?Medication ?Instructions ?Recorded ?Confirmed No Known Home Medications 05/06/25 07/0 03/05 Allergies Allergy/AdvReac Type Severity Reaction Status Date / Time Penicillins Allergy Unknown Unknown Verified 05/06/25 21:02 vancomycin Allergy Redness of Verified 05/06/25 21:02 Skin Opioid HPI Opioid Management Most Recent Opioid Data: Ur Phencyclidine Scrn, (NEGATIVE) Negative Today, 16:44 Review of Systems ROS Narrative A ten point review of systems is negative except as noted above. [facility] Medical History (Updated 05/14/25 @ 18:23 by Herminio Schwartz MD) Heroin addiction ?F11.20 - Opioid dependence, uncomplicated (ICD-10) Endocarditis ?I38 - Endocarditis, valve unspecified (ICD-10) Social History Smoking status: Current every day smoker Little interest or pleasure in doing things: not at all Feeling down, depressed, or hopeless: not at all Exam Narrative Exam Narrative: Nurses note and vital signs reviewed and patient is not hypoxic. General: The patient appears well and in no apparent distress. Patient is resting comfortably on cart. Skin: Warm, dry, no pallor noted. There is no rash noted. Head: Normocephalic, atraumatic Eye: Normal conjunctiva, no drainage Ears, Nose, Mouth, and Throat: oral mucosa is moist. Nares patent. Cardiovascular: Regular Rate and Rhythm, mildly tachycardic Respiratory: Patient is in no distress, no accessory muscle use, lungs are clear to auscultation, no wheezing, rales or rhonchi Back: non-tender GI: Soft and nontender, no mass Musculoskeletal: The patient has no evidence of calf tenderness, no pitting edema, symmetrical pulses noted bilaterally Neurological: A&O, normal speech Psychiatric: Cooperative Constitutional Vital Signs, click to edit/add: Last Vital Signs Temp 98.4 F 05/14/25 15:25 Pulse 80 05/14/25 18:10 Resp 13 05/14/25 18:10 BP 119/81 05/14/25 18:00 Pulse Ox 98 05/14/25 15:40 O2 Del Method Room Air 05/14/25 15:25 Course Vital Signs Vital signs: Vital Signs Temperature 98.4 F 05/14/25 15:25 Pulse Rate 69 05/14/25 15:25 Respiratory Rate 18 05/14/25 15: Blood Pressure 168/104 H 05/14/25 15:25 Pulse Oximetry 99 05/14/25 15:25 Oxygen Delivery Method Room Air 05/14/25 15:25 Temperature 98.4 F 05/14/25 15:25 Pulse Rate 80 05/14/25 18:10 Respiratory Rate 13 05/14/25 18:10 Blood Pressure 119/81 05/14/25 18:00 Pulse Oximetry 98 05/14/25 15:40 Oxygen Delivery Method Room Air 05/14/25 15:25 Medical Decision Making MDM Narrative Medical decision making narrative: The patient was dizzy upon arrival. Initial troponin was elevated at 117 and the repeat is 128. Screen is positive for Suboxone and the patient is on Suboxone. Case discussed with Dr. Velazquez and we discussed admission here versus transfer and he prefers that the patient be kept here for observation. Findings were discussed with the patient. CT brain is pending. Differential Diagnosis Differential Diagnosis: Dehydration, anemia, intracranial hemorrhage Lab Data Lab results reviewed: Yes I reviewed the patient's lab results Labs: Lab Results 05/14/25 05/14/25 05/14/25 Range/Units 16:05 16:44 16:49 WBC 7.0 (4.0-11.0) 10^3/uL RBC 4.60 L (4.70-6.10) 10^6/uL Hgb 14.5 (14.0-18.0) g/dL Hct 41.3 L (42.0-54.0) % MCV 89.8 (80.0-94.0) fL MCH 31.5 (25.9-34.0) pg MCHC 35.1 (29.9-35.2) g/dL RDW 13.0 (11.0-15.0) % Plt Count 121 L (150-450) 10^3/uL MPV 8.8 L (9.5-13.5) fL Neut % (Auto) 72.9 (43.0-75.0) % Lymph % (Auto) 16.1 L (20.5-60.0) % Lucas % (Auto) 6.8 (1.7-12.0) % Eos % (Auto) 3.7 (0.9-7.0) % Baso % (Auto) 0.4 (0.2-2.0) % Neut # (Auto) 5.1 (1.4-6.5) 10^3/uL Lymph # (Auto) 1.1 L (1.2-3.8) 10^3/uL Lucas # (Auto) 0.5 (0.3-0.8) 10^3/uL Eos # (Auto) 0.3 (0.0-0.7) 10^3/uL Baso # (Auto) 0.0 (0.0-0.1) 10^3/uL Abs Immat Gran (auto) 0.01 (0.00-0.03) 10^3/uL Imm/Tot Granulo (auto) 0.1 (0.0-0.5) % Sodium 141 (136-145) mmol/L Potassium 3.8 (3.5-5.1) mmol/L Chloride 104 (98-107) mmol/L Carbon Dioxide 31.6 (21.0-32.0) mmol/L Anion Gap 9.2 BUN 11.0 (7.0-18.0) mg/dL Creatinine 0.98 (0.70-1.30) mg/dL Est GFR ( Amer) >60 (>=60 mL/min/1.73m^2) Est GFR (Non-Af Amer) >60 (>=60 mL/min/1.73m^2) BUN/Creatinine Ratio 11.2 Glucose 109 H (74-106) mg/dL Calcium 9.2 (8.5-10.1) mg/dL Troponin I High Sens 117.8 H* 128.0 H* (4.0-76.1) pg/mL Urine Color Lt. yellow (YELLOW) Urine Clarity Clear (CLEAR) Urine pH 7.0 (5.0-9.0) Ur Specific Hiko 1.010 (1.005-1.025) Urine Protein Negative (NEG/TRACE) mg/dL Urine Glucose (UA) Negative (NEGATIVE) mg/dL Urine Ketones Negative (NEGATIVE) mg/dL Urine Occult Blood Negative (NEGATIVE) Urine Nitrite Negative (NEGATIVE) Urine Bilirubin Negative (NEGATIVE) Urine Urobilinogen 0.2 (0.2-1.0) EU/dL Ur Leukocyte Esterase Negative (NEGATIVE) Urine RBC 0-2 (0-2) #/HPF Urine WBC 0-2 A (NONE SEEN) #/HPF Ur Squamous Epith Cells None seen (NONE/RARE) #/LPF Urine Crystals None seen (None Seen) #/HPF Urine Bacteria None seen (NONE SEEN) #/HPF Urine Casts None seen (NONE SEEN) #/LPF Urine Mucus None seen (NONE SEEN) Ur Culture Indicated? No Urine Opiates Screen Negative (NEGATIVE) Ur Buprenorphine Scrn Positive A (NEGATIVE) Ur Oxycodone Screen Negative (NEGATIVE) Urine Methadone Screen Negative (NEGATIVE) Ur Barbiturates Screen Negative (NEGATIVE) U Tricyclic Antidepress Negative (NEGATIVE) Ur Phencyclidine Scrn Negative (NEGATIVE) Ur Amphetamines Screen Negative (NEGATIVE) U Methamphetamines Scrn Negative (NEGATIVE) U Benzodiazepines Scrn Negative (NEGATIVE) Urine Cocaine Screen Negative (NEGATIVE) U Cannabinoids Screen Negative (NEGATIVE) Imaging Data Chest x-ray: Radiologist's impression: ITS Impressions Chest X-Ray 05/14/25 15:46 IMPRESSION: Negative acute pleural-parenchymal disease. Impression dictated by: Jorge Sultana M.D. 05/14/2025 4:16 PM Dictation Location: [place] [address] Electronically authenticated by: [id number] Y Date: 05/14/2025 16:16 ECG Data Attestation: I personally reviewed and interpreted this ECG as follows: (EKG on my interpretation shows normal sinus rhythm with a rate of 69 and no acute change) Discharge Plan Discharge Chief Complaint: Dizziness Clinical Impression: Dizziness, Elevated troponin Patient Disposition: Admitted as Observation Time of Disposition Decision: 18:23 Condition: Fair
--- NOTE | 2025-05-14 15:46 | ECG_ITS ---
The [facility] Test Date: 2025-05-14 Pat Name: RUTH ANSARI Department: Room: - Gender: Male Mba Internship: : 1980 Requested By: [id number] Order Number: [id number] Reading MD: CINDA HAN M.D. Measurements Intervals [employer] [place] Rate: 69 P: 77 OK: 162 QRS: 75 QRSD: 92 T: 78 QT: 408 QTc: 428 Interpretive Statements 1100 Sinus rhythm 1102 Sinus arrhythmia 2420 RSR (QR) in lead V1/V2, consistent with right ventricular conduction delay 9130 borderline ECG Compared to ECG 05/06/2025 21:06:09 No significant changes Electronically Signed On 05-16-2025 17:20:34 EDT by CINDA HAN M.D.
[2025-05-14 16:11] LABS: Hematocrit 41.3 % (42.0-54.0); Hemoglobin 14.5 g/dL (14.0-18.0); Immature Granulocytes Abs Auto 0.01 10^3/uL (0.00-0.03); Immature Granulocytes Pct Auto 0.1 % (0.0-0.5); Lymphocytes Absolute Auto 1.1 10^3/uL (1.2-3.8); Mean Corpuscular HGB Conc 35.1 g/dL (29.9-35.2); Mean Corpuscular Hemoglobin 31.5 pg (25.9-34.0); Mean Corpuscular Volume 89.8 fL (80.0-94.0); Platelet Count 121 10^3/uL (150-450); Red Blood Count 4.60 10^6/uL (4.70-6.10); White Blood Count 7.0 10^3/uL (4.0-11.0)
[2025-05-14] MEDS: 0.9 % SODIUM CHLORIDE 1,000 ML 1000 ML IV (16:13)
[2025-05-14 16:28] LABS: Anion Gap 9.2; Blood Urea Nitrogen 11.0 mg/dL (7.0-18.0); Calcium 9.2 mg/dL (8.5-10.1); Carbon Dioxide 31.6 mmol/L (21.0-32.0); Chloride 104 mmol/L (98-107); Estimated GFR (African America >60 (>=60 mL/min/1.73m^2); Estimated GFR (Non-African Ame >60 (>=60 mL/min/1.73m^2); Glucose 109 mg/dL (74-106); Potassium 3.8 mmol/L (3.5-5.1); Sodium 141 mmol/L (136-145)
[2025-05-14 17:00] LABS: Glucose Urine UA NEGATIVE (NEGATIVE)
[2025-05-14 17:05] LABS: Cast Seen? NONE SEEN #/LPF (NONE SEEN); Crystals Seen? None Seen #/HPF (None Seen); Urine Culture Indicated NO
[2025-05-14 17:11] LABS: Cannabinoid Screen Urine NEGATIVE (NEGATIVE); Methamphetamines Screen Urine NEGATIVE (NEGATIVE); Tricyclic Antidepressant Urine NEGATIVE (NEGATIVE)
--- NOTE | 2025-05-14 18:22 | CT_ITS ---
The [address] [address] Patient Name: RUTH ANSARI MRN: [facility]:[id number] date: 1980 Sex: M Assigned Patient Location: ED.MAIN Current Patient Location: ED.MAIN Accession/Order Number: [id number] Exam Date: 05/14/2025 18:41 Report Date: 05/14/2025 18:48 At the request of: TAE KHANNA MD Procedure: CT head/brain wo con CT BRAIN WITHOUT CONTRAST: CLINICAL HISTORY: Dizziness COMPARISON: None TECHNIQUE: Contiguous axial unenhanced images were obtained through the brain. This CT exam was performed using one or more following dose reduction techniques: Automated exposure control, adjustment of the mA and/or kV according to patient size, or use of iterative reconstruction technique. FINDINGS: There is no evidence of midline shift, intra or extra-axial fluid collection, hemorrhage or CT evidence of acute large vascular distribution stroke. Mildly increased increased attenuation involving the left distal vertebral artery identified. Unclear if this is due to artifact. Visualized intraorbital contents appear unremarkable. Visualized paranasal sinuses are clear. The surrounding soft tissues are normal. CT/CT head/brain wo con IMPRESSION: FOCAL INCREASED ATTENUATION LEFT DISTAL VERTEBRAL ARTERY IDENTIFIED UNCLEAR IF THIS IS DUE TO ARTIFACT. CORRELATE WITH POSSIBLE VERTEBROBASILAR SYMPTOMS.. OTHERWISE NO DEFINITE ACUTE BLEED, MIDLINE SHIFT OR MASS EFFECT. Impression dictated by: Jorge Sultana M.D. 05/14/2025 6:48 PM Dictation Location: [place] [address] Electronically authenticated by: [id number] Y Date: 05/14/2025 18:48
--- NOTE | 2025-05-14 18:35 | ECG_ITS ---
The [facility] Test Date: 2025-05-14 Pat Name: RUTH ANSARI Department: Room: - Gender: Male [place] [employer]: : 1980 Requested By: [id number] Order Number: [id number] Reading MD: CINDA HAN M.D. Measurements Intervals [place] Rate: 71 P: 63 AR: 160 QRS: 81 QRSD: 90 T: 74 QT: 390 QTc: 413 Interpretive Statements 1100 Sinus rhythm 2420 RSR (QR) in lead V1/V2, consistent with right ventricular conduction delay 9130 borderline ECG Compared to ECG 05/14/2025 15:31:18 Sinus arrhythmia no longer present Electronically Signed On 05-16-2025 17:20:59 EDT by CINDA HAN M.D.
[2025-05-14] MEDS: ASPIRIN 81 MG TAB.CHEW 324 MG PO (18:40)
--- OUTSIDE RECORDS SUMMARY | 2025-05-14 22:32 | XMS_ITS | CCD ---
Author Organization [facility] Inform ion Partnership [facility] Care Team Providers Care Bus Aide Name Role Phone Unavailable Primary Care Provider [...] (1 source) Penicillins Drug Allergy 6 Anaphylaxis [facility] (17 sources) Penicillins; Translations: [PENICILLINS] Propensity to adverse reactions to drug 6 Anaphylaxis [facility]- [place], [place] (1 source) Penicillin Drug Allergy 2 [facility] (12 sources) Vancomycin; Translations: [VANCOMYCIN] Drug Allergy 2 Other (See Comments) [employer] Work Phone (unformatted): [phone] (1 source) Penicillins Propensity to adverse reactions to drug 6 Anaphylaxis [facility] [employer] Phone: Medications Current Medications Medication Drug Class(es) [...] 100 mL IVPB (mini-bag) polyethylene glycol 3350 45052 mg powder for oral solution (2 sources) [...] Ql (Resp) Detected Abnormal Not Detected [facility] FLUBV RNA CHARO+probe Ql (Resp) Not detected Not Detected [facility] Interpretation and review of laboratory results Abnormal [facility] SARS-CoV-2 (COVID-19) RNA CHARO+probe Ql (Resp) Not detected Not Detected [facility] Comment on above: Testing was performed [...] and epidemiological information. Fact sheet for Patients: https://www.fda.gov/media/062587/download Fact sheet for Healthcare Providers: https://www.fda.gov/media/058709/download Results reported to the appropriate Health Department Source .NASOPHARYNGEAL SWAB [facility] Specimen Description .NASOPHARYNGEAL SWAB [facility] Rapid Strep Screenon 024 Specimen source Nom (Unsp spec) .THROAT SWAB [facility] Strep A, Molecular Negative NEGATIVE [facility] SARS-CoV-2 + Flu A/Bon 01-29 Influenza A, RT-PCR Detected Abnormal [facility] Comment on above: Performed By: #### C VFLU #### [facility] [address] [place], [place] [id number] Bearing Grinder: Edward Paz MD Influenza B, RT-PCR Not detected Normal [facility] Comment on above: Performed By: #### C VFLU #### [facility] [address] [place], [place] [id number] Bearing Grinder: Edward Paz MD SARS-CoV-2 (COVID-19) RNA CHARO+probe Ql (Unsp spec) Not detected Normal [facility] Comment on above: Result Comment: Testing [...] and epidemiological information. Fact sheet for Patients: https://www.fda.gov/media/957406/download Fact sheet for Healthcare Providers: https://www.fda.gov/media/503889/download Results reported to the appropriate Health Department Performed By: #### C VFLU #### [facility] [address] [place], [place] [id number] Bearing Grinder: Edward Paz MD Source .NASOPHARYNGEAL SWAB Normal [facility] Comment on above: Performed By: #### C VFLU #### [facility] [address] [place], [place] [id number] Bearing Grinder: Edward Paz MD Strep Group A, Rapidon 01-29 Strep A, Molecular Negative Normal [facility] Comment on above: Performed By: #### R SAB #### [facility] [address] [place], [place] [id number] Bearing Grinder: Edward Paz MD Source .THROAT SWAB Normal [facility] Comment on above: Performed By: #### R SAB #### [facility] [address] [place], [place] [id number] Bearing Grinder: Edward Paz MD XR CHEST (2 VW)on [...] by: Rip Diaz MD Signed by: Rip iDaz MD 11/12/23 Final result Normal [facility] 36on 06-03-2023 36 Notified patient of all test results. At this time, will start treatment for chronic hep B with once daily tenofivir. In 1 month, we will recheck labs and at that time start Hep C therapy. Patient is agreeable. Normal [facility] 36 ----- Message from Candelaria Kc MA sent at 04/25/2023 3:42 PM EDT ----- ----- Message ----- From: Lab, Background User Sent: 04/16/2023 5:26 PM EDT To: Jose Rafael An MD [facility] Telephoneon 06-03-2023 Telephone [phone] Tip Ansari 1980 M Date Provider Department Center 06/03/2023 [id number], SARA EMILEE [facility] No family history on file Normal [facility] EDPROVon 05-09-2023 EDPROV HPI Chief Complaint [...] Making Attestion Edward Palmer DO 07/24/23 1010 [facility] EDPROV HPI Chief Complaint Patient presents with [...] Making Attestion Edward Palmer DO 05/09/23 1427 [facility] 29on 04-16-2023 29 Addended by: ESTELA BARNEY on: 04/22/2023 01:08 PM Modules accepted: Orders [facility] AFP TUMOR MARKERon 3 ALPHA FETOPROTEIN TUMOR MARKER 7 ng/mL Normal 0-9 [facility] Comment on above: Result Comment: INTE [...] reference intervals for this test in the [employer] [facility] Test Directory ([employer]). Performed By: [facility] [address] [place] [address] School Teacher: Hank Evans MD, PhD Performed By: #### L [id number] #### [facility] ([facility] [address] [place] [address] [id number] 2022 ALPHA-1 ANTITRYPSIN 147 mg/dL Normal 90-200 [facility] Comment on above: Result Comment: To c onvert to umol/L, multiply mg/dL by 0.185 Performed By: [facility] [address] [place] [address] School Teacher: Hank Evans MD, PhD Performed By: #### L [id number] #### [facility] ([facility] [address] [place] [address] ANAon 04-16-2023 JESSICA TITER <1:40 Normal <=1:40 [facility] Comment on above: Result Comment: Test performed using ROLF IFA JESSICA Hep-2 Test, a pre-standardized assay designed for the qualitative and semi-quantitative detection of antinuclear antibodies. Performed By: #### L [id number] #### [facility] ([facility] [address] [place] [address] ANTI-SMOOTH MUSCLE ANTIBODY TITERon 04-16-2023 SMOOTH MUSCLE AB, IGG TITER 1:40 High <1:20 [facility] Comment on above: Result Comment: INTE RPRETIVE INFORMATION: Smooth Muscle Ab, IgG Titer Less than 1:20 ........ Negative - No antibody detected. 1:20 - 1:80 .......... Weak Positive - Suggest repeat in two to three weeks with fresh specimen. 1:160 or greater ...... Positive - Suggestive of autoimmune hepatitis or chronic active hepatitis. Performed By: [facility] [address] [place] [address] School Teacher: Hank Evans MD, PhD Performed By: #### L [id number] #### [facility] ([facility] [address] [place] [address] CBC WITH AUTO DIFFERENTIALon 04-16-2023 Basophils (Bld) [#/Vol] 0.04 10*3/uL Normal 0.00-0.20 [facility] Comment on above: Performed By: #### L [id number] #### [facility] ([facility] [address] [place] [address] Basophils/100 WBC (Bld) 0.8 % Normal 0.0-1.0 [facility] Comment on above: Performed By: #### L [id number] #### [facility] ([facility] [address] [place] [address] Eosinophils (Bld) [#/Vol] 0.21 10*3/uL Normal 0.00-0.50 [facility] Comment on above: Performed By: #### L [id number] #### [facility] ([facility] [address] [place] [address] Eosinophils/100 WBC (Bld) 3.9 % Normal 0.0-6.0 [facility] Comment on above: Performed By: #### L [id number] #### [facility] ([facility] [address] [place] [address] Erythrocyte distribution width (RBC) [Ratio] 14.3 % Normal 11.5-15.0 [facility] Comment on above: Performed By: #### L [id number] #### [facility] [address] [place] [address] ERYTHROCYTE MEAN CORPUSCULAR HEMOGLOBIN CONCENTRATION (G/DL) BY AUTOMATED 33.5 g/dL Normal 32.0-35.0 [facility] Comment on above: Performed By: #### L [id number] #### [facility] [address] [place] [address] Hematocrit (Bld) [Volume fraction] 41.2 % Normal 39.0-55.0 [facility] Comment on above: Performed By: #### L [id number] #### [facility] [address] [place] [address] Hemoglobin (Bld) [Mass/Vol] 13.8 g/dL Normal 13.0-17.0 [facility] Comment on above: Performed By: #### L [id number] #### [facility] (BE[facility]) [address] [place] [address] Immature granulocytes (Bld) [#/Vol] 0.00 10*3/uL Normal 0.00-0.20 [facility] Comment on above: Performed By: #### L [id number] #### [facility] ([facility]) [address] [place] [address] Immature granulocytes/100 WBC (Bld) 0.0 % Normal 0.0-1.0 [facility] Comment on above: Performed By: #### L [id number] #### [facility] ([facility]) [address] [place] [address] Lymphocytes (Bld) [#/Vol] 1.34 10*3/uL Normal 1.20-4.00 [facility] Comment on above: Performed By: #### L [id number] #### [facility] ([facility]) [address] [place] [address] Lymphocytes/100 WBC (Bld) 25.1 % Normal 20.0-45.0 [facility] Comment on above: Performed By: #### L [id number] #### [facility] ([facility] [address] [place] [address] MCH (RBC) [Entitic mass] 29.2 pg Normal 27.0-33.0 [facility] Comment on above: Performed By: #### L [id number] #### [facility] ([facility])) [address] [place] [address] MCV (RBC) [Entitic vol] 87.1 fL Normal 82.0-98.0 [facility] Comment on above: Performed By: #### L [id number] #### [facility] ([facility])) [address] [place] [address] Monocytes (Bld) [#/Vol] 0.38 10*3/uL Normal 0.10-1.00 [facility] Comment on above: Performed By: #### L [id number] #### [facility] ([facility])) [address] [place] [address] Monocytes/100 WBC (Bld) 7.1 % Normal 5.0-12.0 [facility] Comment on above: Performed By: #### L [id number] #### [facility] ([facility])) [address] [place] [address] Neutrophils (Bld) [#/Vol] 3.36 10*3/uL Normal 1.60-7.60 [facility] Comment on above: Performed By: #### L [id number] #### [facility] ([facility] [address] [place] [address] Neutrophils/100 WBC (Bld) 63.1 % Normal 40.0-72.0 [facility] Comment on above: Performed By: #### L [id number] #### [facility] [address] [place] [address] NRBC (PER 100 WBCS) BY AUTOMATED COUNT 0.0 % Normal 0 [facility] Comment on above: Performed By: #### L [id number] #### [facility] ([facility]) [address] [place] [address] PLATELETS (10*3/UL) IN BLOOD AUTOMATED COUNT 159 10*3/uL Normal 150-400 [facility] Comment on above: Performed By: #### L [id number] #### [facility] [address] [place] [address] RBC (Bld) [#/Vol] 4.73 10*6/uL Normal 4.20-5.70 [facility] Comment on above: Performed By: #### L [id number] #### [facility] ([facility] [address] [place] [address] WBC (Bld) [#/Vol] 5.33 10*3/uL Normal 4.00-10.60 [facility] Comment on above: Performed By: #### L [id number] #### [facility] [address] [place] [address] COMPREHENSIVE METABOLIC PANE Tarun 04-16-2023 Albumin [Mass/Vol] 4.3 g/dL Normal 3.5-5.7 [facility] Comment on above: Performed By: #### L [id number] #### [facility] ([facility] [address] [place] [address] ALP [Catalytic activity/Vol] 98 U/L Normal 34-104 [facility] Comment on above: Performed By: #### L [id number] #### [facility] ([facility] [address] [place] [address] ALT [Catalytic activity/Vol] 71 U/L High 7-52 [facility] Comment on above: Performed By: #### L [id number] #### [facility] ([facility] [address] [place] [address] Anion gap [Moles/Vol] 9 mmol/L Normal 7-20 [facility] Comment on above: Performed By: #### L [id number] #### [facility] ([facility] [address] [place] [address] AST [Catalytic activity/Vol] 43 U/L High 13-39 [facility] Comment on above: Performed By: #### L [id number] #### [facility] ([facility]) [address] [place] [address] Bilirubin [Mass/Vol] 0.8 mg/dL Normal 0.3-1.0 [facility] Comment on above: Performed By: #### L [id number] #### [facility] ([facility]) [address] [place] [address] Calcium [Mass/Vol] 9.7 mg/dL Normal 8.6-10.3 [facility] Comment on above: Performed By: #### L [id number] #### [facility] ([facility]) [address] [place] [address] Chloride [Moles/Vol] 107 mmol/L Normal 98-107 [facility] Comment on above: Performed By: #### L [id number] #### [facility] ([facility]) [address] [place] [address] CO2 [Moles/Vol] 27 mmol/L Normal 21-31 [facility] Comment on above: Performed By: #### L [id number] #### [facility] ([facility]) [address] [place] [address] Creatinine [Mass/Vol] 1.05 mg/dL Normal 0.70-1.30 [facility] Comment on above: Performed By: #### L [id number] #### [facility] ([facility]) [address] [place] [address] GLOMERULAR FILTRATION RATE ML/MIN/1.73 SQ M.PREDICTED 91.5 mL/min/1.73m*2 Normal >60.0 [facility] Comment on above: Result Comment: [facility]???s estimated glomerular filtration rate (eGFR) will [...] By: #### L [id number] #### [facility] ([facility] [address] [place] [address] Glucose [Mass/Vol] 91 mg/dL Normal 70-100 [facility] Comment on above: Performed By: #### L [id number] #### [facility] ([facility] [address] [place] [address] Potassium [Moles/Vol] 3.9 mmol/L Normal 3.5-5.1 [facility] Comment on above: Performed By: #### L [id number] #### [facility] ([facility] [address] [place] [address] Protein [Mass/Vol] 7.2 g/dL Normal 6.0-8.3 [facility] Comment on above: Performed By: #### L [id number] #### [facility] ([facility]) [address] [place] [address] Sodium [Moles/Vol] 139 mmol/L Normal 136-145 [facility] Comment on above: Performed By: #### L [id number] #### [facility] ([facility]) [address] [place] [address] Urea nitrogen [Mass/Vol] 15 mg/dL Normal 7-20 [facility] Comment on above: Performed By: #### L [id number] #### [facility] ([facility]) [address] [place] [address] Performed By: #### L [id number] #### [facility] ([facility]) [address] [place] [address] UREA NITROGEN/CREATININE (MASS RATIO) IN SER/PLAS 14.3 Normal [facility] Comment on above: Performed By: #### L [id number] #### [facility] ([facility]) [address] [place] [address] FERRITINon 04-16-2023 FERRITIN (NG/ML) IN SER/PLAS 51.0 ng/mL Normal 24.0-336.0 [facility] Comment on above: Performed By: #### L [id number] #### [facility] ([facility]) [address] [place] [address] HCV QUANTITATIVE TMAon 04-16 HCV QUANTITATIVE LOG 6.59 Log10 IU/mL Normal [facility] Comment on above: Order Comment: The A ptima HCV Quant Dx assay is a real-time dinker-mediated amplification (TMA) test which has a dynamic [...] By: #### L [id number] #### [facility] ([facility] [address] [place] [address] HCV TMA INTERP Detected Abnormal Not Detected [facility] Comment on above: Order Comment: The A ptima HCV Quant Dx assay is a real-time dinker-mediated amplification (TMA) test which has a dynamic [...] L [id number] #### [facility] ([facility]) [address] [place] [address] HCV TMA QUANTITATIVE 4101735 IU/mL Normal [facility] Comment on above: Order Comment: The A ptima HCV Quant Dx assay is a real-time dinker-mediated amplification (TMA) test which has a dynamic [...] products. Performed By: #### L [id number] #### [facility] [address] [place] [address] HEPATITIS B E ANTIBODYon HEPATITIS B VIRUS E AB PRESENCE IN SERUM BY IMMUNOASSAY Negative Normal Negative [facility] Comment on above: Result Comment: Perf [place] [address] [email or web address], Hank Evans MD, PHD, Lab. Director Performed By: #### L [id number] #### [facility] ([facility]) [address] [place] [address] HEPATITIS B E ANTIGENon HEPATITIS BE ANTIGEN Positive Abnormal Negative [facility] Comment on above: Result Comment: The HBeAg is reactive, which is consistent with hepatitis B infection and a HIGH infectious potential. Serum positive for rheumatoid factor may cause falsely positive HBeAg results. All specimens submitted for HBeAg testing should be positive for HBsAg. Performed by [facility] [address] [email or web address], Hank Evans MD, PHD, Lab. Director Performed By: #### L [id number] #### [employer] [facility] ([facility] [address] [place] [address] HEPATITIS B QUANTITATIVE PCR on 04-16-2023 HBV DNA, QUANT PCR (IU/ML) 538,246,646 IU/mL Normal [facility] Comment on above: Performed By: #### L [id number] #### [facility] ([facility] [address] [place] [address] HBV DNA, QUANT PCR (LOG IU/ML) 8.73 log IU/mL Normal [facility] Comment on above: Result Comment: Perf ormed by [facility], [address] [place], [place] [id number] [email or web address], Hank Evans MD, PHD, Lab. Director Performed By: #### L [id number] #### [facility] ([facility] [address] [place] [address] HBV DNA, QUANT PCR INTERP Detected Abnormal Not Detected [facility] Comment on above: Result Comment: INTE [...] (HCT/P). Performed By: #### L [id number] #### [facility] ([facility] [address] [place] [address] HEPATITIS B SURFACE ANTIGEN CONFIRMon 04-16-2023 HEPATITIS B SURFACE ANTIGEN INTERPRETATION Confirmed Abnormal Not Confirmed [facility] Comment on above: Performed By: #### L [id number] #### [facility] ([facility] [address] [place] [address] HEPATITIS PANEL, ACUTEon HEPATITIS A VIRUS IGM AB PRESENCE IN SER/PLAS Non-Reactive Normal Nonreactive [facility] Comment on above: Performed By: #### L [id number] #### [facility] ([facility] [address] [place] [address] HEPATITIS B VIRUS CORE AB (PRESENCE) IN SER/PLAS BY IMM Reactive Abnormal Nonreactive [facility] Comment on above: Result Comment: RAN IN DUP, ALL THREE REACTIVE Performed By: #### L [id number] #### [facility] ([facility] [address] [place] [address] HEPATITIS B VIRUS SURFACE AG PRESENCE IN SERUM Reactive Abnormal Nonreactive [facility] Comment on above: Result Comment: RAN IN DUP, ALL THREE REACTIVE Performed By: #### L [id number] #### [facility] ([facility] [address] [place] [address] HEPATITIS C VIRUS AB PRESENCE IN SERUM Reactive Abnormal Nonreactive [facility] Comment on above: Performed By: #### L [id number] #### [facility] ([facility] [address] [place] [address] HIV COMBO 4Gon 04-16-2023 HIV COMBO 4G Negative Normal Negative [facility] Comment on above: Performed By: #### L [id number] #### [facility] ([facility] [address] [place] [address] IRON AND TIBCon 04-16-2023 IRON (UG/DL) IN SER/PLAS 88 ug/dL Normal 50-212 [facility] Comment on above: Performed By: #### L [id number] #### [facility] ([facility] [address] [place] [address] IRON BINDING CAPACITY (UG/DL) IN SER/PLAS 368 ug/dL Normal 250-450 [facility] Comment on above: Performed By: #### L [id number] #### [facility] ([facility] [address] [place] [address] IRON BINDING CAPACITY.UNSATURATED (UG/DL) IN SER/PLAS 280.0 ug/dL Normal 155.0-355.0 [facility] Comment on above: Performed By: #### L [id number] #### [facility] ([facility] [address] [place] [address] IRON SATURATION (%) IN SER/PLAS 24 % Normal 20-50 [facility] Comment on above: Performed By: #### L [id number] #### [facility] ([facility] [address] [place] [address] LIVER FIBROSIS CHRONIC VIRAL HEPATITISon 04-16-2023 PELIF-8-MTHSUMFRGYSMB, FIBROMETER 149 mg/dL Normal 131-293 [facility] Comment on above: Performed By: #### L [id number] #### [facility] ([facility] [address] [address] ALT [Catalytic activity/Vol] 96 U/L High 5-50 [facility] Comment on above: Performed By: #### L [id number] #### [facility] ([facility] [address] [place] [address] Amylase [Catalytic activity/Vol] 44 U/L Normal 7-51 [facility] Comment on above: Performed By: #### L [id number] #### [facility] ([facility] [address] [place] [address] AST [Catalytic activity/Vol] 55 U/L High 9-50 [facility] Comment on above: Performed By: #### L [id number] #### [facility] ([facility] [address] [place] [address] CIRRHOMETER PATIENT SCORE 0.05 Normal [facility] Comment on above: Performed By: #### L [id number] #### [facility] ([facility] [address] [place] [address] EER FIBROMETER REPORT See Note Normal [facility] Comment on above: Result Comment: Auth orized individuals can access the [facility] Enhanced Report using the following link: [email or web address] Performed By: #### L [id number] #### [facility] ([facility] [address] [place] [address] FIBROMETER INTERPRETATION See Report Normal [facility] Comment on above: Result Comment: [17] [13] INTERPRETIVE INFORMATION: Fibrometer Interpretation Calculations for the final report are based on accurate data for age, gender, and platelet count. If any of this information needs to be corrected, please contact [facility] Client Services to request a recalculation. Client [...] developed and its performance characteristics determined by [facility]. It has not been cleared or approved by the US Food and Drug Administration. This test was performed in a CLIA certified laboratory and is intended for clinical purposes. Performed By: [facility] [address] [place] [id number] School Teacher: Hank Evans MD, PhD Performed By: #### L [id number] #### [facility] ([facility] [address] [place] [address] FIBROMETER PATIENT SCORE 0.46 Normal [facility] Comment on above: Performed By: #### L [id number] #### [facility] ([facility] [address] [place] [address] FIBROMETER PLATELET COUNT 165 k/uL Normal [facility] Comment on above: Performed By: #### L [id number] #### [facility] ([facility] [address] [place] [address] FIBROMETER PROTHROMBIN INDEX 86 % Low 90-120 [facility] Comment on above: Performed By: #### L [id number] #### [facility] ([facility] [address] [place] [address] FIBROSIS METAVIR CLASSIFICATION F2[F1-F2] Normal [facility] Comment on above: Result Comment: INTE [...] possible Performed By: #### L [id number] #### [facility] ([facility] [address] [place] [address] INFLAMETER METAVIR CLASSIFICATION A1/A2 Normal [facility] Comment on above: Result Comment: INTE RPRETIVE INFORMATION: InflaMeter Metavir Classification InflaMeter (activity score) comments A0/A1 Equal probability between A0 and A1 A1/A2 Equal probability between A1 and A2 A2/A3 Equal probability between A2 and A3 Performed By: #### L [id number] #### [facility] ([facility] [address] [place] [address] INFLAMETER PATIENT SCORE 0.51 Normal [facility] Comment on above: Performed By: #### L [id number] #### [facility] ([facility] [address] [place] [address] Labon 04-16-2023 Lab [id number] Tip Ansari 1980 M Date Provider Department Center 04/16/[id number]-[facility] LAB RESOURCE [facility] C No family history on file Normal [facility] MITOCHONDRIAL ANTIBODIES, M2 on 04-16-2023 MITOCHONDRIAL M2 ANTIBODY 2.7 Units Normal 0.0-24.9 [facility] Comment on above: Result Comment: REFE [...] does not rule out PBC. Performed By: [facility] [address] [place] [address] School Teacher: Hank Evans MD, PhD Performed By: #### L [id number] #### [facility] ([facility]) [address] [place] [address] Office Visiton 04-16-2023 Follow-up visit [id number] Tip Ansari 1980 M Date Provider Department [place] 04/16/2023 JOSE RAFAEL EUBANKS [facility] No family history on file Level of Service:13591 ID OFFICE/OUTPATIENT ESTABLISHED MOD MDM 30-39 MIN Reason for Visit and Comments: New Patient [632] Hepatitis C [102] Hepatitis B [94] Normal [facility] PROTIME-INRon 04-16-2023 INR IN PPP BY COAGULATION ASSAY 1.07 Normal 0.90-1.10 [facility] Comment on above: Result Comment: ACCC [...] 1995;[id number]. Performed By: #### L [id number] #### [facility] ([facility] [address] [place] [address] PROTHROMBIN TIME (PT) IN PPP BY COAGULATION ASSAY 14.0 Seconds Normal 12.3-14.8 [facility] Comment on above: Performed By: #### L [id number] #### [facility] ([facility] [address] [place] [address] TISSUE TRANSGLUTAMINASE, IGA on 04-16-2023 TISSUE TRANSGLUTAMINASE, IGA <2 Normal 0-3 [facility] Comment on above: Result Comment: INTE [...] positive predictive value for disease. 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 REVIEW OF SYSTEMS Review of Systems Constitutional: [...] Dental abscess 2. Toothache PATIENT REFERRED TO: [facility] [phone] Schedule an appointment a (more content not included)... Normal [facility] EDNURSon 12-25-2022 EDNURS Patient reports having dental pain for the past couple of months. Patient reports that he is to have all of his teeth extracted but due to insurance issues he has not been able to have that done. 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 Normal [facility] Basic Metabolic Panel w/ Ref rebecca to MGon 06-21-2022 Anion gap [Moles/Vol] 10 mmol/L 9 - 17 mmol/L [employer] Calcium [Mass/Vol] 9.2 mg/dL 8.6 - 10. 4 mg/dL [facility] Chloride [Moles/Vol] 104 mmol/L 98 - 10 7 mmol/L [facility] CO2 [Moles/Vol] 24 mmol/L 20 - 31 mmol/L [facility] Creatinine [Mass/Vol] 0.68 mg/dL Low 0.7 - 1.2 mg/dL [employer] GFR >60 60 - PI NF mL/min [facility] GFR Non- >60 60 - PINF mL/min [facility] GFR/1.73 sq M.predicted MDRD (S/P/Bld) [Vol rate/Area] [facility] Comment on above: Average GFR for 40-4 9 years old: 99 mL/min/1.73sq m Chronic Kidney Disease: <60 mL/min/1.73sq m Kidney failure: <15 mL/min/1.73sq m eGFR calculated using average adult body mass. Additional eGFR calculator available at: http://www.NovaPlanner.[employer]cean Technologies/multiple_crcl_2011.htm Glucose [Mass/Vol] 85 mg/dL 70 - 99 mg/dL [facility] [email or web address] Interpretation and review of laboratory results Abnormal [facility] Potassium [Moles/Vol] 3.9 mmol/L 3.7 - 5.3 mmol/L [facility] Sodium [Moles/Vol] 138 mmol/L 135 - 144 mmol/L [facility] Urea nitrogen (BldV) [Mass/Vol] 13 mg/dL 6 - 20 mg/dL [facility] CBCon 06-21-2022 Hematocrit (Bld) [Volume fraction] 35.7 % Low 40.7 - 50.3 % [facility] Hemoglobin (Bld) [Mass/Vol] 12.3 g/dL Low 13 - 17 g/dL [facility] Interpretation and review of laboratory results Abnormal [facility] MCH (RBC) [Entitic mass] 28.7 pg 25. 2 - 33.5 pg [facility] MCHC (RBC) [Mass/Vol] 34.5 g/dL 28.4 - 34.8 g/dL [facility] MCV (RBC) [Entitic vol] 83.4 fL 82.6 - 102.9 fL [facility] NRBC Automated 0.0 0.0 per 100 WBC [facility] Platelet distribution width (Bld) [Ratio] 17.9 % High 11.8 - 14.4 % [facility] Platelet mean volume (Bld) [Entitic vol] 9.1 fL 8.1 - 13.5 fL [facility] Platelets (Bld) [#/Vol] 174 10*3/uL [facility] RBC (Bld) [#/Vol] 4.28 10*6/uL 4.21 - 5.7 7 m/uL [facility] WBC (Bld) [#/Vol] 8.6 10*3/uL [facility] Hepatic Function Panelon Albumin [Mass/Vol] 3.2 g/dL Low 3.5 - 5.2 g/dL [facility] Albumin/Globulin [Mass ratio] 0.7 {ratio} Low 1 - 2.5 [facility] ALP (Bld) [Catalytic activity/Vol] 83 U/L 40 - 129 U/L [facility] ALT [Catalytic activity/Vol] 28 U/L 5 - 41 U/L [facility] AST [Catalytic activity/Vol] 20 U/L NINF - 40 U/L [facility] Bilirubin [Mass/Vol] 0.45 mg/dL 0.3 - 1 .2 mg/dL [facility] Bilirubin, Indirect 0.35 mg/dL 0 - 1 mg/dL [facility] Bilirubin.indirect [Mass/Vol] 0.10 mg/dL NINF - 0.31 mg/dL [facility] Free PSA/Total PSA [Mass fraction] 7.5 g/dL 6.4 - 8.3 g/dL [facility] Interpretation and review of laboratory results Abnormal [facility] Basic Metabolic Panel w/ Ref rebecca to MGon 06-20-2022 Anion gap [Moles/Vol] 8 mmol/L Low 9 - 17 mmol/L [facility] Calcium [Mass/Vol] 9.1 mg/dL 8.6 - 10. 4 mg/dL [facility] Chloride [Moles/Vol] 106 mmol/L 98 - 10 7 mmol/L [facility] CO2 [Moles/Vol] 27 mmol/L 20 - 31 mmol/L [facility] Creatinine [Mass/Vol] 0.75 mg/dL 0.7 - 1.2 mg/dL [facility] GFR >60 60 - PI NF mL/min [facility] GFR Non- >60 60 - PINF mL/min [facility] GFR/1.73 sq M.predicted MDRD (S/P/Bld) [Vol rate/Area] [facility] Comment on above: Average GFR for 40-4 9 years old: 99 mL/min/1.73sq m Chronic Kidney Disease: <60 mL/min/1.73sq m Kidney failure: <15 mL/min/1.73sq m eGFR calculated using average adult body mass. Additional eGFR calculator available at: http://www.NovaPlanner.[employer]cean Technologies/multiple_crcl_2011.htm Glucose [Mass/Vol] 99 mg/dL 70 - 99 mg/dL [facility] Interpretation and review of laboratory results Abnormal [facility] Potassium [Moles/Vol] 4.1 mmol/L 3.7 - 5.3 mmol/L [facility] Sodium [Moles/Vol] 141 mmol/L 135 - 144 mmol/L [facility] Urea nitrogen (BldV) [Mass/Vol] 13 mg/dL 6 - 20 mg/dL [facility] CBCon 06-20-2022 Hematocrit (Bld) [Volume fraction] 35.2 % Low 40.7 - 50.3 % [facility] Hemoglobin (Bld) [Mass/Vol] 11.8 g/dL Low 13 - 17 g/dL [facility] Interpretation and review of laboratory results Abnormal [facility] MCH (RBC) [Entitic mass] 28.0 pg 25. 2 - 33.5 pg [facility] MCHC (RBC) [Mass/Vol] 33.5 g/dL 28.4 - 34.8 g/dL [facility] MCV (RBC) [Entitic vol] 83.4 fL 82.6 - 102.9 fL [facility] NRBC Automated 0.0 0.0 per 100 WBC [facility] Platelet distribution width (Bld) [Ratio] 18.0 % High 11.8 - 14.4 % [facility] Platelet mean volume (Bld) [Entitic vol] 8.9 fL 8.1 - 13.5 fL [facility] Platelets (Bld) [#/Vol] 187 10*3/uL [facility] RBC (Bld) [#/Vol] 4.22 10*6/uL 4.21 - 5.7 7 m/uL [facility] WBC (Bld) [#/Vol] 8.9 10*3/uL [facility] Culture, Blood 1 2 Bacteria identified Cx Nom (Unsp spec) NO GROWTH 5 DAYS [facility] Special Requests RT FOREARM 3ML [facility] Specimen Description .BLOOD [facility] Culture, Blood 2 2 Bacteria identified Cx Nom (Unsp spec) NO GROWTH 5 DAYS [facility] Special Requests L AC 10ML [facility] Specimen Description .BLOOD [facility] XR ABDOMEN (KUB) (SINGLE AP VIEW)on 06-20-2022 Moderate stool burde n throughout the colon. Nonobstructive bowel gas pattern. [facility] EXAMINATION: ONE SUPINE XRAY VIEW(S) OF THE ABDOMEN 06/20/2022 8:37 am COMPARISON: None. HISTORY: ORDERING SYSTEM PROVIDED HISTORY: abd paindistension TECHNOLOGIST PROVIDED HISTORY: abd paindistension FINDINGS: Moderate stool burden throughout the colon. Nonobstructive bowel gas pattern. No renal calculi identified. No acute osseous abnormality appreciated. [facility] Mckayla Baltazar MD - [...] throughout the colon. Nonobstructive bowel gas pattern. [facility] Work Phone: Radiology Study observation (narrative) [facility] [employer] Work Phone: XR ABDOMEN (KUB) (SINGLE AP VIEW)Ordered By: Mckayla Baltazar on 06-20-2022 [facility] Work Phone: No Panel Informationon 06-19 [facility] [employer] Renal Function Panelon 06-19 Albumin [Mass/Vol] 3.3 g/dL Low 3.5 - 5.2 g/dL [facility] Namely [employer] Anion gap [Moles/Vol] 11 mmol/L 9 - 17 mmol/L [facility] [employer] Calcium [Mass/Vol] 9.0 mg/dL 8.6 - 10. 4 mg/dL [facility] [employer] Chloride [Moles/Vol] 105 mmol/L 98 - 10 7 mmol/L [facility] [employer] CO2 [Moles/Vol] 25 mmol/L 20 - 31 mmol/L [facility] [employer] Creatinine [Mass/Vol] 0.7 mg/dL 0.7 - 1.2 mg/dL [facility] GFR >60 60 - PI NF mL/min [facility] GFR Non- >60 60 - PINF mL/min [facility] GFR/1.73 sq M.predicted MDRD (S/P/Bld) [Vol rate/Area] [facility] Comment on above: Average GFR for 40-4 9 years old: 99 mL/min/1.73sq m Chronic Kidney Disease: <60 mL/min/1.73sq m Kidney failure: <15 mL/min/1.73sq m eGFR calculated using average adult body mass. Additional eGFR calculator available at: http://www.ClearCount Medical Solutions/multiple_crcl_2012.htm Glucose [Mass/Vol] 142 mg/dL High 70 - 99 mg/dL [facility] Interpretation and review of laboratory results Abnormal [facility] Phosphate [Mass/Vol] 3.3 mg/dL 2.5 - 4 .5 mg/dL [facility] Potassium [Moles/Vol] 3.6 mmol/L Low 3.7 - 5.3 mmol/L [facility] Sodium [Moles/Vol] 141 mmol/L 135 - 144 mmol/L [facility] Urea nitrogen (BldV) [Mass/Vol] 11 mg/dL 6 - 20 mg/dL [facility] Vancomycin Level, Randomon 0 06-19-2022 Vancomycin Rm 18.4 ug/mL [facility] Comment on above: Higher trough serum vancomycin concentrations of 15-20 ug/mL are recommended for complicated infections such as bacteremia, endocarditis, osteomyelitis, meningitis, and hospital acquired pneumonia. Cult,Bloodon 06-18-2022 Cult,Blood Specimen Description .BLOOD Culture NO GROWTH 5 DAYS Report Status FINAL 06/18/2022 Normal [facility] Comment on above: Performed By: #### B C #### [facility] [address] [place] [address] Bearing Grinder: Joelle Parker MD Basic Metabolic Panel w/ Ref rebecca to MGon 06-17-2022 Anion gap [Moles/Vol] 10 mmol/L 9 - 17 mmol/L [facility] Calcium [Mass/Vol] 8.8 mg/dL 8.6 - 10. 4 mg/dL [facility] Chloride [Moles/Vol] 106 mmol/L 98 - 10 7 mmol/L [facility] CO2 [Moles/Vol] 24 mmol/L 20 - 31 mmol/L [facility] Creatinine [Mass/Vol] 0.73 mg/dL 0.7 - 1.2 mg/dL [facility] GFR >60 60 - PI NF mL/min [facility] GFR Non- >60 60 - PINF mL/min [facility] GFR/1.73 sq M.predicted MDRD (S/P/Bld) [Vol rate/Area] [facility] Comment on above: Average GFR for 40-4 9 years old: 99 mL/min/1.73sq m Chronic Kidney Disease: <60 mL/min/1.73sq m Kidney failure: <15 mL/min/1.73sq m eGFR calculated using average adult body mass. Additional eGFR calculator available at: http://www.ClearCount Medical Solutions/multiple_crcl_2012.htm Glucose [Mass/Vol] 147 mg/dL High 70 - 99 mg/dL [facility] Interpretation and review of laboratory results Abnormal [facility] Potassium [Moles/Vol] 3.7 mmol/L 3.7 - 5.3 mmol/L [facility] Sodium [Moles/Vol] 140 mmol/L 135 - 144 mmol/L [facility] Urea nitrogen (BldV) [Mass/Vol] 9 mg/dL 6 - 20 mg/dL [facility] Respiratory Cultureon 2021 Bacteria identified Cx Nom (Unsp spec) NORMAL RESPIRATORY CHRISTOPHER MODERATE GROWTH [facility] Direct Exam >25 NEUTROPHILS/LPF [facility] Direct Exam < 10 EPITHELIAL CELLS/LPF [facility] Direct Exam MIXED BACTERIAL MORPHOTYPES SEEN ON GRAM STAIN. Abnormal [facility] Interpretation and review of laboratory results Abnormal [facility] Specimen Description .ASPIRATED SPUTUM [facility] ANTISTREPTOLYSIN O SCREENon 06-16-2022 ASO 130.8 [facility] Brain Natriuretic Peptideon 06-16-2022 Natriuretic peptide B (Bld) [Mass/Vol] 287 pg/mL NINF - 300 pg/mL [facility] Comment on above: An age-independent cutoff point of 300 pg/ml has a 98% negative predictive value excluding acute heart failure. C-Reactive Proteinon 022 CRP [Mass/Vol] 16.4 mg/L High 0 - 5 mg/L [facility] Interpretation and review of laboratory results Abnormal [facility] Comprehensive Metabolic Pane l w/ Reflex to MGon 06-16-2022 Albumin [Mass/Vol] 3.1 g/dL Low 3.5 - 5.2 g/dL [facility] Albumin/Globulin [Mass ratio] 0.8 {ratio} Low 1 - 2.5 [facility] ALP (Bld) [Catalytic activity/Vol] 76 U/L 40 - 129 U/L [facility] ALT [Catalytic activity/Vol] 21 U/L 5 - 41 U/L [facility] Anion gap [Moles/Vol] 10 mmol/L 9 - 17 mmol/L [facility] AST [Catalytic activity/Vol] 15 U/L NINF - 40 U/L [facility] Bilirubin [Mass/Vol] 0.35 mg/dL 0.3 - 1 .2 mg/dL [facility] Calcium [Mass/Vol] 8.6 mg/dL 8.6 - 10. 4 mg/dL [facility] Chloride [Moles/Vol] 107 mmol/L 98 - 10 7 mmol/L [facility] CO2 [Moles/Vol] 22 mmol/L 20 - 31 mmol/L [facility] Creatinine [Mass/Vol] 0.72 mg/dL 0.7 - 1.2 mg/dL [facility] Free PSA/Total PSA [Mass fraction] 7.0 g/dL 6.4 - 8.3 g/dL [facility] GFR >60 60 - PI NF mL/min [facility] GFR Non- >60 60 - PINF mL/min [facility] GFR/1.73 sq M.predicted MDRD (S/P/Bld) [Vol rate/Area] [facility] Comment on above: Average GFR for 40-4 9 years old: 99 mL/min/1.73sq m Chronic Kidney Disease: <60 mL/min/1.73sq m Kidney failure: <15 mL/min/1.73sq m eGFR calculated using average adult body mass. Additional eGFR calculator available at: http://www.ClearCount [employer] Solutions/multiple_crcl_2012.htm Glucose [Mass/Vol] 96 mg/dL 70 - 99 mg/dL [facility] Interpretation and review of laboratory results Abnormal [facility] Potassium [Moles/Vol] 3.6 mmol/L Low 3.7 - 5.3 mmol/L [facility] Sodium [Moles/Vol] 139 mmol/L 135 - 144 mmol/L [facility] Urea nitrogen (BldV) [Mass/Vol] 9 mg/dL 6 - 20 mg/dL [facility] DRUG SCREEN MULTI URINEon Amphetamine Screen, Ur Negative NEGATIVE [facility] Comment on above: (Positive cutoff 1000 ng/mL) Barbiturate Screen, Ur Negative NEGATIVE [facility] Comment on above: (Positive cutoff 200 ng/mL) Benzodiazepine Screen, Urine Negative NEGATIVE [facility] [employer] [facility] Comment on above: (Positive cutoff 200 ng/mL) Cannabinoid Scrn, Ur Negative NEGATIVE [facility] Comment on above: (Positive cutoff 50 ng/mL) Cocaine Metabolite, Urine Negative NEGATIVE [facility] [employer] [facility] Comment on above: (Positive cutoff 300 ng/mL) Fentanyl, Ur Negative NEGATIVE [facility] [employer] Comment on above: (Positive cutoff 5 ng/ml) Methadone Screen, Urine Negative NEGATIVE B ON [employer] Comment on above: (Positive cutoff 300 ng/mL) Opiates, Urine Negative NEGATIVE [facility] Comment on above: (Positive cutoff 300 ng/mL) Oxycodone Screen, Ur Negative NEGATIVE [facility] [email or web address] Comment on above: (Positive cutoff 100 ng/mL) Phencyclidine, Urine Negative NEGATIVE [employer] Comment on above: (Positive cutoff 25 ng/mL) Test Information Assay provides medical screening only. The absence of expected drug(s) and/or metabolite(s) may indicate diluted or adulterated urine, limitations of testing or timing of collection. [employer] Comment on above: Testing for legal pu rposes should be confirmed by another method. To request confirmation of test result, please call the lab within 7 days of sample submission. [employer] EKG 12 LeadOrdered By: Alec Cheung on 06-16-2022 Atrial Rate 113 BPM [employer] Work Phone: P [place] 65 degrees [employer] Phone: P-R Interval 132 ms [employer] Work Phone: Q-T Interval 332 ms [employer] Phone: QRS Duration 80 ms [employer] Work Phone: QTc Calculation (Bazett) 455 ms [employer] Work Phone: R [place] 73 degrees [employer] Work Phone: T [place] 57 degrees [employer] Work Phone: Ventricular Rate 113 BPM [employer] Work Phone: [employer] Work Phone: EKG 12 Leadon 06-16-2022 Sinus tachycardia Otherwise normal ECG When compared with ECG of 30-JAN-2022 08:47, No significant change was found [facility] STV Alec Shook MD - 06/16/2022 Sinus tachycardia Otherwise normal ECG When compared with ECG of 30-JAN-2022 08:47, No significant change was found [employer] Work Phone: Echocardiogram 3Don 06-16-20 Transthoracic Echocardiography Report (TTE) Patient Name COTY Date of Study 06/16/2022 TIP Plata Date of 1980 Gender Male Age 42 year(s) Race Room Number 430 Height: 73 inch, 185.42 cm Corporate ID [id number] Weight: 172 pounds, 78 kg # Patient Acct [id number] BSA: 2.02 m^2 BMI: 22.69 # kg/m^2 MR # [id number] [employer] Stock Clerk T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 Procedure Date Date: 06/16/2022 Start: 11:00 AM Study Location: [facility] Indications:Endocardi tis. History / Tech. Comments: Lower [...] Height: 73 inch, 185.42 cm Corporate ID [id number] Weight: 172 pounds, 78 kg # Patient Acct [id number] BSA: 2.02 m^2 BMI: 22.69 # kg/m^2 MR # [id number] Finished [employer]s Stock Clerk [employer] Fam Interpreting Physician Alec Cheung Fellow Referring Nurse Practitioner Interpreting Referring Physician Beverly Flores Type of Study TTE procedure:2D Echocardiogram, Doppler, Color Doppler. Procedure Date Date: 06/16/2022 Start: 11:00 AM Study Location: [facility] Indications:Endocardi tis. History / Tech. Comments: Lower [...] velocity:0.09 m/s Lateral Wall E' velocity:0.10 m/s [facility] Work Phone: [facility] [employer] Work Phone: HIV Screenon 06-16-2022 HIV Ag/Ab Non-Reactive NONREACTIVE [facility] Comment on above: No laboratory eviden ce of HIV infection. If acute HIV infection is suspected, consider testing for HIV-1 RNA. [facility] [employer] Lactate, Sepsison 06-16-2022 Lactic Acid, Sepsis, Whole Blood 1.6 mmol/L 0.5 - 1.9 mmol/L [facility] MRI CERVICAL SPINE W WO CONT RASTon [...] spinal canal stenosis or neural foraminal narrowing. [facility] RIS Richard Shane MD - [...] at C6-C7, on the left hand side. [employer] Phone: [employer] Phone: MRI LUMBAR SPINE W WO TWILAA Uziel 06-16-2022 No MRI evidence of discitis-osteomyeliti s or epidural abscess. 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 [facility] EXAMINATION: MRI OF THE [...] zone. A lateralized disc bulge results in [id number] narrowing of the left neural foramen. L4-L5: There is no significant disc protrusion, spinal canal stenosis or neural foraminal narrowing. L5-S1: There is no significant disc protrusion, spinal canal stenosis or neural foraminal narrowing. [facility] Richard Haas MD - [...] zone. A lateralized disc bulge results in [id number] narrowing of the left neural foramen. L4-L5: There is no significant disc protrusion, spinal canal stenosis or neural foraminal narrowing. L5-S1: There is no significant disc protrusion, spinal canal stenosis or neural foraminal narrowing. IMPRESSION: No MRI evidence of discitis-osteomyeliti s or epidural abscess. 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 [employer] Work Phone: MRI LUMBAR SPINE W FELIPE MATTSONA STOrdered By: Richard Haas on 06-16-2022 [employer] Work Phone: MRSA DNA Probe, Nasalon -0 MRSA, DNA, Nasal Negative NEGATIVE [facility] [employer] Comment on above: NEGATIVE: MRSA DNA n ot detected by nucleic acid amplification. Results should be used as an adjunct to nosocomial control efforts to identify patients needing enhanced precautions. The test is not intended to identify patients with staphylococcal infections. Results should not be used to guide or monitor treatment for MRSA infections. Specimen Description .[facility] [employer] No Panel Informationon 06-16 Radiology Study observation (narrative) [employer] Work Phone: [facility] Procalcitoninon 06-16-2022 Interpretation and review of laboratory results Abnormal [facility] Procalcitonin 0.21 ng/mL High NINF - 0.09 ng/mL [facility] Comment on above: Suspected Sepsis: <0.50 [...] entered into the Change in Procalcitonin Calculator (Flyr.ogjuqg-zyg-gxtexmbiqk.[employer]) to determine the patient's Mortality Risk Prognosis In healthy neonates, plasma Procalcitonin (PCT) concentrations increase gradually after , reaching peak values at about 24 hours of age then decrease to normal values below 0.5 ng/mL by 48-72 hours of age. [facility] Interpretation and review of laboratory results Abnormal [facility] Procalcitonin 0.2 ng/mL High NINF - 0.09 ng/mL [facility] Comment on above: Suspected Sepsis: <0.50 [...] entered into the Change in Procalcitonin Calculator (www.wqkihq-sqs-aooamdlfbj.com) to determine the patient's Mortality Risk Prognosis In healthy neonates, plasma Procalcitonin (PCT) concentrations increase gradually after , reaching peak values at about 24 hours of age then decrease to normal values below 0.5 ng/mL by 48-72 hours of age. [facility] Protime-INRon 06-16-2022 INR Coag (Bld) [Relative time] 1.0 {INR} [facility] Comment on above: Therapeutic Range: Moderate Anticoagulant Intensity: INR = 2.0-3.0 High Anticoagulant Intensity: INR = 2.5-3.5 PT Coag (PPP) [Time] 10.5 s [facility] STREP SCREEN GROUP A THROATo n 06-16-2022 S. pyogenes Ag Ql (Throat) Negative NEGATIVE [facility] Comment on above: Rapid Strep A negati ve. A negative Rapid Group A Strep Screen result does not rule out the possibility of Group A Streptococci in the specimen. A Group A Strep DNA test is available upon request. Source .THROAT SWAB [facility] Sputum gram stainon 06-16-20 22 Direct Exam DUPLICATE ORDER [facility] Specimen Description .ASPIRATED SPUTUM [facility] Strep Pneumoniae Antigenon 0 06-16-2022 Source .URINE [facility] Strep pneumo Ag Negative [facility] Comment on above: Strep pneumoniae ant igen not detected [facility] Urinalysis with Reflex to Cu ltureon 06-16-2022 Bilirubin Urine Negative NEGATIVE [facility] Color, UA Yellow Yellow [facility] Glucose, Ur Negative NEGATIVE [facility] Ketones Ql (U) Negative NEGATIVE [facility] Leukocyte esterase Test strip Ql (U) Negative NEGATIVE [facility] Nitrite, Urine Negative NEGATIVE [facility] pH, UA 6.5 5 - 8 [facility] Protein, UA Negative NEGATIVE [facility] Specific [place], UA 1.021 1.005 - 1.03 [facility] Turbidity UA Clear Clear [facility] Urinalysis Comments Microscopic exam not performed based on chemical results unless requested in original order. [facility] Urine Hgb Negative NEGATIVE [facility] Urobilinogen, Urine Normal Normal [facility] Basic Metabolic Panelon Anion gap [Moles/Vol] 11 mmol/L 9 - 17 mmol/L [facility] Calcium [Mass/Vol] 9.9 mg/dL 8.6 - 10. 4 mg/dL [facility] Chloride [Moles/Vol] 101 mmol/L 98 - 10 7 mmol/L [facility] CO2 [Moles/Vol] 24 mmol/L 20 - 31 mmol/L [facility] Creatinine [Mass/Vol] 0.8 mg/dL 0.7 - 1.2 mg/dL [facility] GFR >60 60 - PI NF mL/min [facility] GFR Non- >60 60 - PINF mL/min [facility] GFR/1.73 sq M.predicted MDRD (S/P/Bld) [Vol rate/Area] [facility] Comment on above: Average GFR for 40-4 9 years old: 99 mL/min/1.73sq m Chronic Kidney Disease: <60 mL/min/1.73sq m Kidney failure: <15 mL/min/1.73sq m eGFR calculated using average adult body mass. Additional eGFR calculator available at: http://www.[employer]/multiple_crcl_2012.htm Glucose [Mass/Vol] 105 mg/dL High 70 - 99 mg/dL [facility] Interpretation and review of laboratory results Abnormal [facility] Potassium [Moles/Vol] 4.2 mmol/L 3.7 - 5.3 mmol/L [facility] Sodium [Moles/Vol] 136 mmol/L 135 - 144 mmol/L [facility] Urea nitrogen (BldV) [Mass/Vol] 15 mg/dL 6 - 20 mg/dL [facility] CBC with Auto Differentialon 06-15-2022 Absolute Eos # 0.27 [facility] Absolute Immature Granulocyte 0.04 [facility] Absolute Lymph # 1.20 [facility] Absolute Hopkins # 1.07 [facility] Basophils (Bld) [#/Vol] 0.05 10*3/uL [facility] Basophils/100 WBC (Bld) 1 % 0 - 2 % B ON [facility] Eosinophils/100 WBC (Bld) 3 % 1 - 4 % [facility] Hematocrit (Bld) [Volume fraction] 38.8 % Low 40.7 - 50.3 % [facility] Hemoglobin (Bld) [Mass/Vol] 12.9 g/dL Low 13 - 17 g/dL [facility] Immature granulocytes/100 WBC (Bld) 0 % 0 [facility] Interpretation and review of laboratory results Abnormal [facility] Lymphocytes/100 WBC (Bld) 11 % Low 24 - 43 % [facility] MCH (RBC) [Entitic mass] 27.9 pg 25. 2 - 33.5 pg [facility] MCHC (RBC) [Mass/Vol] 33.2 g/dL 28.4 - 34.8 g/dL [facility] MCV (RBC) [Entitic vol] 83.8 fL 82.6 - 102.9 fL [facility] Monocytes/100 WBC (Bld) 10 % 3 - 12 % B ON [facility] NRBC Automated 0.0 0.0 per 100 WBC [facility] Platelet distribution width (Bld) [Ratio] 18.5 % High 11.8 - 14.4 % [facility] Platelet mean volume (Bld) [Entitic vol] 9.8 fL 8.1 - 13.5 fL [facility] Platelets (Bld) [#/Vol] 224 10*3/uL [facility] RBC (Bld) [#/Vol] 4.63 10*6/uL 4.21 - 5.7 7 m/uL [facility] RBC (Bld) [#/Vol] ANISOCYTOSIS PRESENT [facility] Segmented neutrophils/100 WBC (Bld) 75 % High 36 - 65 % [facility] Segs Absolute 7.90 [facility] WBC (Bld) [#/Vol] 10.5 10*3/uL MAURA Nguyen [facility] COVID-19, Rapidon 06-15-2022 SARS-CoV-2 (COVID-19) RNA CHARO+probe Ql (Unsp spec) Not detected Not Detected [facility] Comment on above: Rapid NAAT: The [...] management decisions. Fact sheet for Healthcare Providers: https://www.fda.gov/media/322449/download Fact sheet for Patients: https://www.fda.gov/media/059854/download Methodology: Isothermal Nucleic Acid Amplification Specimen Description .NASOPHARYNGEAL SWAB [facility] CT CHEST PULMONARY EMBOLISM W CONTRASTon 06-15-2022 Addendum by Akanksha Santoro MD on 06/15/2022 10:18 PM EDT ADDENDUM: There is mediastinal lymphadenopathy best visualized in subcarinal location which are likely reactive to abnormalities within the lungs. [facility] Work Phone: No evidence of pulmonary [...] No acute bone or soft tissue abnormality. [facility] Akanksha Samuels MD - 06/15/2022 [...] findings are most likely due to atelectasis. [employer] Work Phone: Radiology Study observation (narrative) [employer] Work Phone: CT CHEST PULMONARY EMBOLISM W CONTRASTOrdered By: Akanksha Santoro on 06-15-2022 [employer] Work Phone: Hepatic Function Panelon Albumin [Mass/Vol] 3.4 g/dL Low 3.5 - 5.2 g/dL [employer] Albumin/Globulin [Mass ratio] 0.8 {ratio} Low 1 - 2.5 [employer] ALP (Bld) [Catalytic activity/Vol] 85 U/L 40 - 129 U/L [employer] ALT [Catalytic activity/Vol] 22 U/L 5 - 41 U/L [employer] AST [Catalytic activity/Vol] 16 U/L NINF - 40 U/L [facility] Bilirubin [Mass/Vol] 0.41 mg/dL 0.3 - 1 .2 mg/dL [facility] Bilirubin, Indirect 0.26 mg/dL 0 - 1 mg/dL [facility] Bilirubin.indirect [Mass/Vol] 0.15 mg/dL NINF - 0.31 mg/dL [facility] Free PSA/Total PSA [Mass fraction] 7.5 g/dL 6.4 - 8.3 g/dL [facility] Interpretation and review of laboratory results Abnormal [facility] Lactate, Sepsison 06-15-2022 Lactic Acid, Sepsis, Whole Blood 1.0 mmol/L 0.5 - 1.9 mmol/L [facility] Lactic Acid, Sepsis, Whole Blood 1.6 mmol/L 0.5 - 1.9 mmol/L [facility] Sedimentation Rateon 022 Interpretation and review of laboratory results Abnormal [facility] Sed Rate 35 High [facility] Comment on above: ADDED ON [facility] Troponinon 06-15-2022 Troponin, High Sensitivity ng/L 0 - 22 ng/L [facility] Comment on above: High Sensitivity Troponin values cannot be compared with other Troponin methodologies. Patients with high levels of Biotin oral intake (i.e >5mg/day) may have falsely decreased Troponin levels. Samples collected within 8 hours of biotin intake may require additional information for diagnosis. [facility] Troponin, High Sensitivity ng/L 0 - 22 ng/L [facility] Comment on above: High Sensitivity Troponin values cannot be compared with other Troponin methodologies. Patients with high levels of Biotin oral intake (i.e >5mg/day) may have falsely decreased Troponin levels. Samples collected within 8 hours of biotin intake may require additional information for diagnosis. [facility] XR CHEST (2 VW)on 06-15-2022 Increased [...] cardiomediastinal silhouette and pulmonary vessels appear normal. [facility] Dre Gonsalves MD - [...] this area. Radiographic follow-up may be helpful. [employer] Work Phone: Radiology Study observation (narrative) [employer] Work Phone: XR CHEST (2 VW)Ordered By: Soledad Gonsalves on 06-15-2022 [employer] Work Phone: CBC with Auto Differentialon 06-13-2022 Absolute Eos # 0.20 [employer] Absolute Immature Granulocyte 0.03 [facility] [email or web address] Absolute Lymph # 1.03 Low [employer] Absolute Hopkins # 0.91 [facility] [employer] Basophils (Bld) [#/Vol] 0.03 10*3/uL [facility] Basophils/100 WBC (Bld) 0 % 0 - 2 % B ON [facility] Eosinophils/100 WBC (Bld) 2 % 1 - 4 % [facility] Hematocrit (Bld) [Volume fraction] 38.5 % Low 40.7 - 50.3 % [facility] Hemoglobin (Bld) [Mass/Vol] 12.2 g/dL Low 13 - 17 g/dL [facility] Immature granulocytes/100 WBC (Bld) 0 % 0 [facility] Interpretation and review of laboratory results Abnormal [facility] Lymphocytes/100 WBC (Bld) 9 % Low 24 - 43 % [facility] MCH (RBC) [Entitic mass] 27.2 pg 25. 2 - 33.5 pg [facility] MCHC (RBC) [Mass/Vol] 31.7 g/dL 28.4 - 34.8 g/dL [facility] MCV (RBC) [Entitic vol] 85.9 fL 82.6 - 102.9 fL [facility] Monocytes/100 WBC (Bld) 8 % 3 - 12 % B ON [facility] NRBC Automated 0.0 0.0 per 100 WBC [facility] Platelet distribution width (Bld) [Ratio] 18.5 % High 11.8 - 14.4 % [facility] Platelet mean volume (Bld) [Entitic vol] 9.3 fL 8.1 - 13.5 fL [facility] Platelets (Bld) [#/Vol] 181 10*3/uL [facility] RBC (Bld) [#/Vol] 4.48 10*6/uL 4.21 - 5.7 7 m/uL [facility] Segmented neutrophils/100 WBC (Bld) 81 % High 36 - 65 % [facility] Segs Absolute 9.54 High [facility] WBC (Bld) [#/Vol] 11.7 10*3/uL High [facility] CBC with Diffon 06-13-2022 Abs. Basophil 0.03 k/uL Normal 0.00-0.20 [facility] Comment on above: Performed By: #### C P, CDP #### [address] [place], [facility] Bearing Grinder: Joelle Parker MD Abs.Imm.Granulocyte 0.03 k/uL Normal 0.00-0.30 [facility] Comment on above: Performed By: #### C P, CDP #### [address] [place], [place] [address] Bearing Grinder: Joelle Parker MD Abs.Neutrophil (Seg) 9.54 k/uL High 1.50-8.10 [facility] Comment on above: Performed By: #### C P, CDP #### [address] [place] [address] Bearing Grinder: Joelle Parker MD Basophils/100 WBC (Bld) 0 % Normal 0-2 [facility] Comment on above: Performed By: #### C P, CDP #### [address] [place], [place] [address] Bearing Grinder: Joelle Parker MD Eosinophils (Bld) [#/Vol] 0.20 10*3/uL Normal 0.00-0.44 [facility] Comment on above: Performed By: #### C P, CDP #### [address] [place], [facility] Bearing Grinder: Joelle Parker MD Eosinophils/100 WBC (Bld) 2 % Normal 1-4 [facility] Comment on above: Performed By: #### C P, CDP #### [address] [place] [address] Bearing Grinder: Joelle Parker MD Erythrocyte distribution width (RBC) [Ratio] 18.5 % High 11.8-14.4 [facility] Comment on above: Performed By: #### C P, CDP #### [address] [place], [facility] Bearing Grinder: Joelle Parker MD Hematocrit (Bld) [Volume fraction] 38.5 % Low 40.7-50.3 [facility] Comment on above: Performed By: #### C P, CDP #### [facility] [address] [place] [address] Dr[place], [place] [id number] Bearing Grinder: Joelle Parker MD Hemoglobin (Bld) [Mass/Vol] 12.2 g/dL Low 13.0-17.0 [facility] Comment on above: Performed By: #### C P, CDP #### [address] [place], [facility] Bearing Grinder: Joelle Parker MD Immature granulocytes/100 WBC (Bld) 0 % Normal 0 [facility] Comment on above: Performed By: #### C P, CDP #### [address] [place], [facility]83 Bearing Grinder: Joelle Parker MD Lymphocytes (Bld) [#/Vol] 1.03 10*3/uL Low 1.10-3.70 [facility] Comment on above: Performed By: #### C P, CDP #### [address] [place], [place] [id number] Bearing Grinder: Joelle Parker MD Lymphocytes/100 WBC (Bld) 9 % Low 24-43 [facility] Comment on above: Performed By: #### C P, CDP #### [facility] [address] [place] [address] Dr. [place], [facility] Bearing Grinder: Joelle Parker MD MCH (RBC) [Entitic mass] 27.2 pg Normal 25.2-33.5 [facility] Comment on above: Performed By: #### C P, CDP #### [facility] [address] [place] [address] Dr[place], [place] [id number] Bearing Grinder: Joelle Parker MD MCHC (RBC) [Mass/Vol] 31.7 g/dL Normal 28.4-34.8 [facility] Comment on above: Performed By: #### C P, CDP #### [address] [place], [facility] Bearing Grinder: Joelle Parker MD MCV (RBC) [Entitic vol] 85.9 fL Normal 82.6-102.9 [facility] Comment on above: Performed By: #### C P, CDP #### [address] [place], [place] [address] Bearing Grinder: Joelle Parker MD Monocytes (Bld) [#/Vol] 0.91 10*3/uL Normal 0.10-1.20 [facility] Comment on above: Performed By: #### C P, CDP #### [address] [place], [place] [address] Bearing Grinder: Joelle Parker MD Monocytes/100 WBC (Bld) 8 % Normal 3-12 [facility] Comment on above: Performed By: #### C P, CDP #### [address] [place], [place] [address] Bearing Grinder: Joelle Parker MD Neutrophil (Seg) 81 % High 36-65 [facility] Comment on above: Performed By: #### C P, CDP #### [address] [place], [facility]83 Bearing Grinder: Joelle Parker MD NRBC Automated 0.0 per 100 WBC Normal 0.0 [facility] Comment on above: Performed By: #### C P, CDP #### [address] [place], [facility]83 Bearing Grinder: Joelle Parker MD Platelet mean volume (Bld) [Entitic vol] 9.3 fL Normal 8.1-13.5 [facility] Comment on above: Performed By: #### C P, CDP #### [facility] [address] [place], [place] [id number] Bearing Grinder: Joelle Parker MD Platelets (Bld) [#/Vol] 181 10*3/uL Normal 138-453 [facility] Comment on above: Performed By: #### C P, CDP #### [facility] [address] [place] [address] Bearing Grinder: Joelle Parker MD RBC (Bld) [#/Vol] 4.48 10*6/uL Normal 4.21-5.77 [facility] Comment on above: Performed By: #### C P, CDP #### [facility] [address] [place] [address] Bearing Grinder: Joelle Parker MD WBC (Bld) [#/Vol] 11.7 10*3/uL High 3.5-11.3 [facility] Comment on above: Performed By: #### C P, CDP #### [address] [place] [address] Bearing Grinder: Joelle Parker MD Comp Metabolic Profon 2021 (cont.) [facility] Comment on above: Result Comment: Aver age GFR for 40-49 years old: 99 mL/min/1.73sq m Chronic Kidney Disease: <60 mL/min/1.73sq m Kidney failure: <15 mL/min/1.73sq m eGFR calculated using average adult body mass. Additional eGFR calculator available at: http://www.[employer].com/multiple_crcl_2011.htm Performed By: #### C P, CDP #### [facility] [address] [place] [address] Bearing Grinder: Joelle Parker MD Albumin [Mass/Vol] 3.8 g/dL Normal 3.5-5.2 [facility] Comment on above: Performed By: #### C P, CDP #### [facility] [address] [place], [place] [id number] Bearing Grinder: Joelle Parker MD Albumin/Glob Ratio 0.9 Low 1.0-2.5 [facility] Comment on above: Performed By: #### C P, CDP #### [facility] [address] [place], [place] [id number] Bearing Grinder: Joelle Parker MD Alkaline Phos 93 U/L Normal 40-129 [facility] Comment on above: Performed By: #### C P, CDP #### [facility] [address] [place], [place] [id number] Bearing Grinder: Joelle Parker MD ALT [Catalytic activity/Vol] 28 U/L Normal 5-41 [facility] Comment on above: Performed By: #### C P, CDP #### [facility] [address] [place], [place] [id number] Bearing Grinder: Joelle Parker MD Anion gap [Moles/Vol] 11 mmol/L Normal 9-17 [facility] Comment on above: Performed By: #### C P, CDP #### [facility] [address] [place], [place] [id number] Bearing Grinder: Joelle Parker MD AST [Catalytic activity/Vol] 19 U/L Normal <40 [facility] Comment on above: Performed By: #### C P, CDP #### [facility] [address] [place], [place] [id number] Bearing Grinder: Joelle Parker MD Bilirubin [Mass/Vol] 0.39 mg/dL Normal 0.3-1.2 [facility] Comment on above: Performed By: #### C P, CDP #### [facility] [address] [place], [place] [id number] Bearing Grinder: Joelle Parker MD BUN/CRE Ratio 18 Normal 9-20 [facility] Comment on above: Performed By: #### C P, CDP #### [facility] [address] [place], [place] [id number] Bearing Grinder: Joelle Parker MD Calcium [Mass/Vol] 9.7 mg/dL Normal 8.6-10.4 [facility] Comment on above: Performed By: #### C P, CDP #### [facility] [address] [place], [place] [phone] Bearing Grinder: Joelle Parker MD Chloride [Moles/Vol] 101 mmol/L Normal 98-107 [facility] Comment on above: Performed By: #### C P, CDP #### [facility] [address] [place], [place] [id number] Bearing Grinder: Joelle Parker MD CO2 [Moles/Vol] 25 mmol/L Normal 20-31 [facility] Comment on above: Performed By: #### C P, CDP #### [facility] [address] [place], [place] [id number] Bearing Grinder: Joelle Parker MD Creatinine [Mass/Vol] 0.85 mg/dL Normal 0.70-1.20 [facility] Comment on above: Performed By: #### C P, CDP #### [facility] [address] [place], [place] [id number] Bearing Grinder: Joelle Parker MD GFR, Amer >60 Normal >60 [facility] Comment on above: Performed By: #### C P, CDP #### [facility] [address] [place], [place] [id number] Bearing Grinder: Joelle Parker MD GFR,non Amer >60 Normal >60 [facility] Comment on above: Performed By: #### C P, CDP #### [facility] [address] [place], [place] [id number] Bearing Grinder: Joelle Parker MD Glucose [Mass/Vol] 106 mg/dL High 70-99 [facility] Comment on above: Performed By: #### C P, CDP #### [facility] [address] [place] [address] Dr[place], [place] [id number] Bearing Grinder: Joelle Parker MD Potassium [Moles/Vol] 4.3 mmol/L Normal 3.7-5.3 [facility] Comment on above: Performed By: #### C P, CDP #### [facility] [address] [place] [address] Dr[place], [place] [id number] Bearing Grinder: Joelle Parker MD Protein [Mass/Vol] 8.2 g/dL Normal 6.4-8.3 [facility] Comment on above: Performed By: #### C P, CDP #### [address] [place], [place] [id number] Bearing Grinder: Joelle Parker MD Sodium [Moles/Vol] 137 mmol/L Normal 135-144 [facility] Comment on above: Performed By: #### C P, CDP #### [address] [place] [address] Bearing Grinder: Joelle Parker MD Staging: Normal [facility] Comment on above: Result Comment: Stag e 1: Some kidney damage normal GFR Stage 2: Mild kidney damage GFR 60-89 Stage 3: Moderate kidney damage GFR 30-59 Stage 4: Severe kidney damage GFR 15-29 Stage 5: Severe kidney damage GFR <15 ESRD - chronic treatment by dialysis or transplant Performed By: #### C P, CDP #### [facility] [address] [place] [address] [address] [place], [place] [id number] Bearing Grinder: Joelle Parker MD Urea nitrogen [Mass/Vol] 15 mg/dL Normal 6-20 [facility] Comment on above: Performed By: #### C P, CDP #### [facility] [address] [place] [address] Bearing Grinder: Joelle Parker MD Comprehensive Metabolic Pane tarun 06-13-2022 Albumin [Mass/Vol] 3.8 g/dL 3.5 - 5.2 g/dL [facility] Albumin/Globulin [Mass ratio] 0.9 {ratio} Low 1 - 2.5 [facility] ALP (Bld) [Catalytic activity/Vol] 93 U/L 40 - 129 U/L [facility] ALT [Catalytic activity/Vol] 28 U/L 5 - 41 U/L [facility] Anion gap [Moles/Vol] 11 mmol/L 9 - 17 mmol/L [facility] AST [Catalytic activity/Vol] 19 U/L NINF - 40 U/L [facility] Bilirubin [Mass/Vol] 0.39 mg/dL 0.3 - 1 .2 mg/dL [facility] Calcium [Mass/Vol] 9.7 mg/dL 8.6 - 10. 4 mg/dL [facility] Chloride [Moles/Vol] 101 mmol/L 98 - 10 7 mmol/L [facility] CO2 [Moles/Vol] 25 mmol/L 20 - 31 mmol/L [facility] Creatinine [Mass/Vol] 0.85 mg/dL 0.7 - 1.2 mg/dL [facility] Free PSA/Total PSA [Mass fraction] 8.2 g/dL 6.4 - 8.3 g/dL [facility] GFR >60 60 - PI NF mL/min [facility] GFR Non- >60 60 - PINF mL/min [facility] Glucose [Mass/Vol] 106 mg/dL High 70 - 99 mg/dL [facility] Interpretation and review of laboratory results Abnormal [facility] Potassium [Moles/Vol] 4.3 mmol/L 3.7 - 5.3 mmol/L [facility] Sodium [Moles/Vol] 137 mmol/L 135 - 144 mmol/L [facility] Urea nitrogen (BldV) [Mass/Vol] 15 mg/dL 6 - 20 mg/dL [facility] Urea nitrogen/Creatinine (Bld) [Mass ratio] 18 9 - 20 [facility] Laboratory - Chemistry and C hemistry - challengeon 06-13-2022 GFR/1.73 sq M.predicted MDRD (S/P/Bld) [Vol rate/Area] [facility] Comment on above: Average GFR for 40-4 9 years old: 99 mL/min/1.73sq m Chronic Kidney Disease: <60 mL/min/1.73sq m Kidney failure: <15 mL/min/1.73sq m eGFR calculated using average adult body mass. Additional eGFR calculator available at: http://www.[employer]/multiple_crcl_2012.htm Stage 1: Some kidney damage normal GFR Stage 2: Mild kidney damage GFR 60-89 Stage 3: Moderate kidney damage GFR 30-59 Stage 4: Severe kidney damage GFR 15-29 Stage 5: Severe kidney damage GFR <15 ESRD - chronic treatment by dialysis or transplant Cult,Blood 05-22-2022 Cult,Blood Specimen Description .BLOOD Culture NO GROWTH 5 DAYS Report Status FINAL 05/22/2022 Normal [facility] Comment on above: Performed By: #### B C #### [facility] [address] [place] [address] [place] [address] Bearing Grinder: Joelle Parker MD [facility] 05-21-2022 Cult,Blood Specimen Description .BLOOD Special Requests 10ML RIGHT HAND Culture POSITIVE Blood Culture DIRECT GRAM STAIN FROM BOTTLE: YEAST NATHANIEL ALBICANS (NOTE) Direct Gram Stain from bottle result called to and read back by: DR MORE @ [phone] ON [id number]. KEB Report Status FINAL 05/21/2022 Abnormal [facility] Comment on above: Performed By: #### B C #### [facility] [address] [place] [address] [place] [address] Bearing Grinder: Joelle Parker MD [facility] 05-11-2022 Cult,Blood Specimen Description .BLOOD Special Requests 20ML LEFT HAND Culture POSITIVE Blood Culture DIRECT GRAM STAIN FROM BOTTLE: YEAST NATHANIEL ALBICANS (NOTE) Direct Gram Stain from bottle result called to and read back by:BILLY KINNEY STUMP SHOOTER [id number] 05-09-22 RB MIKA Report Status FINAL 05/11/2022 Abnormal [facility] Comment on above: Performed By: #### B C #### [facility] [address] [place], [place] [phone] Bearing Grinder: Joelle Parker MD Cult, Bloodon 05-10-2022 Cult, Blood Specimen Description .BLOOD Special Requests 20ML RIGHT HAND Culture NO GROWTH 5 DAYS Report Status FINAL 05/10/2022 Normal [facility] Comment on above: Performed By: #### B C #### [facility] [address] [place] [address] Bearing Grinder: Joelle Parker MD MRI ANKLE LEFT WO CONTRASTon 05-08-2022 1. No evidence of acute osteomyelitis. Irregularity along the posterosuperior process of the calcaneus is likely postsurgical. 2. Partial-thickness tearing of the insertional Achilles tendon involving approximately 1/3 of the tendon thickness. Moderate to advanced Achilles tendinopathy. [facility] RIS CONSOLIDATED EXAMINATION: MRI OF [...] synovial process. The Lisfranc ligament is intact. [facility] Chau Lomax MD [...] tendon thickness. Moderate to advanced Achilles tendinopathy. [employer] Work Phone: MRI ANKLE LEFT WO CONTRASTOr dered By: Chau Lomax on 05-08-2022 [employer] Work Phone: Basic Metabolic Panel w/ Ref rebecca to MGon 05-07-2022 Anion gap [Moles/Vol] 11 mmol/L 9 - 17 mmol/L [employer] Calcium [Mass/Vol] 8.9 mg/dL 8.6 - 10. 4 mg/dL [employer] Chloride [Moles/Vol] 105 mmol/L 98 - 10 7 mmol/L [facility] CO2 [Moles/Vol] 21 mmol/L 20 - 31 mmol/L [facility] Creatinine [Mass/Vol] 0.62 mg/dL Low 0.70 - 1.20 mg/dL [facility] GFR >60 >60 mL/min [facility] GFR Non- >60 >60 mL/min [facility] GFR/1.73 sq M.predicted MDRD (S/P/Bld) [Vol rate/Area] [facility] Comment on above: Average GFR for 40-4 9 years old: 99 mL/min/1.73sq m Chronic Kidney Disease: <60 mL/min/1.73sq m Kidney failure: <15 mL/min/1.73sq m eGFR calculated using average adult body mass. Additional eGFR calculator available at: http://www.[employer]/multiple_crcl_2012.htm Glucose [Mass/Vol] 87 mg/dL 70 - 99 mg/dL [facility] Interpretation and review of laboratory results Abnormal [facility] Potassium [Moles/Vol] 4.2 mmol/L 3.7 - 5.3 mmol/L [facility] Sodium [Moles/Vol] 137 mmol/L 135 - 144 mmol/L [facility] Urea nitrogen (BldV) [Mass/Vol] 16 mg/dL 6 - 20 mg/dL [facility] Cult,Urineon 05-07-2022 Cult,Urine Specimen Description .CLEAN CATCH URINE Culture NO GROWTH Report Status FINAL 05/07/2022 Normal [facility] Comment on above: Performed By: #### B C #### [facility] [address] [place], [place] [id number] Bearing Grinder: Joelle Parker MD MRI ANKLE LEFT WO CONTRASTon 05-07-2022 Radiology Study observation (narrative) [facility] Work Phone: C-Reactive Proteinon 022 CRP [Mass/Vol] 36.1 mg/L High 0.0 - 5.0 mg/L [facility] Interpretation and review of laboratory results Abnormal [facility] Microscopic Urinalysison - [facility] Bacteria, UA TRACE Abnormal None [facility] Epithelial Cells UA None [facility] Interpretation and review of laboratory results Abnormal [facility] Mucus, UA TRACE Abnormal None [facility] RBC, UA 0 TO 2 [facility] WBC, UA 0 TO 2 [facility] Sedimentation Rateon 022 Interpretation and review of laboratory results Abnormal [facility] Sed Rate 55 High [facility] Urinalysison 05-06-2022 Bilirubin Urine Negative NEGATIVE [facility] Color, UA Yellow Yellow [facility] Glucose, Ur Negative NEGATIVE [facility] Interpretation and review of laboratory results Abnormal [facility] Ketones Ql (U) Negative NEGATIVE [facility] Leukocyte esterase Test strip Ql (U) Negative NEGATIVE [facility] Nitrite, Urine Negative NEGATIVE [facility] pH, UA 6.5 [facility] Protein, UA Negative NEGATIVE [facility] Specific [place], UA <1.005 Low [facility] Turbidity UA Clear Clear [facility] Urine Hgb TRACE Abnormal NEGATIVE [facility] Urobilinogen, Urine Normal Normal [facility] Urinalysis, Routineon 2021 Bilirubin, SemiQt,Ur Negative Normal NEG [facility] Comment on above: Performed By: #### B C #### [facility] [address] [place] [address] [place] [phone] Bearing Grinder: Joelle Parker MD Blood, Urine TRACE Abnormal NEG [facility] Comment on above: Performed By: #### B C #### [facility] [address] [place] [address] Dr[place] [phone] Bearing Grinder: Joelle Parker MD Clarity (U) Clear Normal CLEAR [facility] Comment on above: Performed By: #### B C #### [facility] [address] [place] [address] [place] [address] Bearing Grinder: Joelle Parker MD Color (U) Yellow Normal YEL [facility] Comment on above: Performed By: #### B C #### [facility] [address] [place] [address] Dr[place], [place] [phone] Bearing Grinder: Joelle Parker MD Glucose Ql (U) Negative Normal NEG [facility] Comment on above: Performed By: #### B C #### [facility] [address] [place] [address] [place] [place], [place] [phone] Bearing Grinder: Joelle Parker MD Ketones Ql (U) Negative Normal NEG [facility] Comment on above: Performed By: #### B C #### [facility] [address] [place] [address] [place]. [place], [place] [phone] Bearing Grinder: Joelle Parker MD Leukocyte esterase Test strip Ql (U) Negative Normal NEG [facility] Comment on above: Performed By: #### B C #### [facility] [address] [place] [address] [place] [address] Bearing Grinder: Joelle Parker MD Nitrite,Ur Negative Normal NEG [facility] Comment on above: Performed By: #### B C #### [facility] [address] [place] [address] [place] [address] Bearing Grinder: Joelle Parker MD PH,Ur 6.5 Normal 5.0-9.0 [facility] Comment on above: Performed By: #### B C #### [facility] [address] [place] [address] Dr. [place], [place] [phone] Bearing Grinder: Joelle Parker MD Protein Ql (U) Negative Normal NEG [facility] Comment on above: Performed By: #### B C #### [facility] [address] [place] [address] Dr. [place], [place] [phone] Bearing Grinder: Joelle Parker MD Spec. [place],Ur <1.005 Low 1.010-1.020 [facility] Comment on above: Performed By: #### B C #### [facility] [address] [place] [address] Dr. [place], [place] [phone] Bearing Grinder: Joelle Parker MD Urobilinogen,Ur Normal Normal NORM [facility] Comment on above: Performed By: #### B C #### [facility] [address] [place], [place] [phone] Bearing Grinder: Joelle Parker MD Urinalysis,Microon 2 ----- Normal [facility] Comment on above: Performed By: #### B C #### [facility] [address] [place], [place] [phone] Bearing Grinder: Joelle Parker MD Bacteria TRACE Abnormal NONE [facility] Comment on above: Performed By: #### B C #### [facility] [address] [place], [place] 1848783 Bearing Grinder: Joelle Parker MD Epithelial cells LM Ql (Urine sed) None Normal [address] Comment on above: Performed By: #### B C #### [facility] [address] [place], [place] [phone] Bearing Grinder: Joelle Parker MD Mucus Strands TRACE Abnormal NONE [facility] Comment on above: Performed By: #### B C #### [facility] [address] [place], [place] [phone] Bearing Grinder: Joelle Parker MD Urine RBC's 0 TO 2 Normal 0-2 [facility] Comment on above: Performed By: #### B C #### [facility] [address] [place], [place] [phone] Bearing Grinder: Joelle Parker MD Urine WBC's 0 TO [address] Comment on above: Performed By: #### B C #### [facility] [address] [place] [address] Bearing Grinder: Joelle Parker MD CBC with Auto Differentialon 05-05-2022 Absolute Eos # 0.03 [facility] Absolute Immature Granulocyte 0.06 [facility] Absolute Lymph # 0.87 Low [facility] Absolute Hopkins # 0.69 [facility] Basophils (Bld) [#/Vol] 0.04 10*3/uL [facility] Basophils/100 WBC (Bld) 0 % 0 - 2 % B ON [facility] Eosinophils/100 WBC (Bld) 0 % Low 1 - 4 % [facility] Hematocrit (Bld) [Volume fraction] 33.7 % Low 40.7 - 50.3 % [facility] Hemoglobin (Bld) [Mass/Vol] 10.6 g/dL Low 13.0 - 17.0 g/dL [facility] Immature granulocytes/100 WBC (Bld) 0 % 0 [facility] Interpretation and review of laboratory results Abnormal [facility] Lymphocytes/100 WBC (Bld) 7 % Low 24 - 43 % [facility] MCH (RBC) [Entitic mass] 26.0 pg 25. 2 - 33.5 pg [facility] MCHC (RBC) [Mass/Vol] 31.5 g/dL 28.4 - 34.8 g/dL [facility] MCV (RBC) [Entitic vol] 82.8 fL 82.6 - 102.9 fL [facility] Monocytes/100 WBC (Bld) 5 % 3 - 12 % B ON [facility] NRBC Automated 0.0 0.0 per 100 WBC [facility] Platelet distribution width (Bld) [Ratio] 15.7 % High 11.8 - 14.4 % [facility] Platelet mean volume (Bld) [Entitic vol] 8.9 fL 8.1 - 13.5 fL [facility] Platelets (Bld) [#/Vol] 196 10*3/uL [facility] RBC (Bld) [#/Vol] 4.07 10*6/uL Low 4.21 - 5.7 7 m/uL [facility] Segmented neutrophils/100 WBC (Bld) 88 % High 36 - 65 % [facility] Segs Absolute 11.77 High [facility] WBC (Bld) [#/Vol] 13.5 10*3/uL High [facility] CBC with Diffon 05-05-2022 Abs. Basophil 0.04 k/uL Normal 0.00-0.20 [facility] Comment on above: Performed By: #### C DP, CMPX #### [facility] [address] [place] [address] Bearing Grinder: Joelle Parker MD Abs.Imm.Granulocyte 0.06 k/uL Normal 0.00-0.30 [facility] Comment on above: Performed By: #### C DP, CMPX #### [facility] [address] [place] [address] Bearing Grinder: Joelle Parker MD Abs.Neutrophil (Seg) 11.77 k/uL High 1.50-8.10 [facility] Comment on above: Performed By: #### C DP, CMPX #### [facility] [address] [place] [address] Bearing Grinder: Joelle Parker MD Basophils/100 WBC (Bld) 0 % Normal 0-2 [facility] Comment on above: Performed By: #### C DP, CMPX #### [facility] [address] [place] [address] Bearing Grinder: Joelle Parker MD Eosinophils (Bld) [#/Vol] 0.03 10*3/uL Normal 0.00-0.44 [facility] Comment on above: Performed By: #### C DP, CMPX #### [facility] [address] [place], [place] [phone] Bearing Grinder: Joelle Parker MD Eosinophils/100 WBC (Bld) 0 % Low 1-4 [facility] Comment on above: Performed By: #### C DP, CMPX #### [facility] [address] [place], [place] [phone] Bearing Grinder: Joelle Parker MD Erythrocyte distribution width (RBC) [Ratio] 15.7 % High 11.8-14.4 [facility] Comment on above: Performed By: #### C DP, CMPX #### [address] [place] [address] Bearing Grinder: Joelle Parker MD Hematocrit (Bld) [Volume fraction] 33.7 % Low 40.7-50.3 [facility] Comment on above: Performed By: #### C DP, CMPX #### [address] [place] [phone] Bearing Grinder: Joelle Parker MD Hemoglobin (Bld) [Mass/Vol] 10.6 g/dL Low 13.0-17.0 [facility] Comment on above: Performed By: #### C DP, CMPX #### [address] [place], [place] [address] Bearing Grinder: Joelle Parker MD Immature granulocytes/100 WBC (Bld) 0 % Normal 0 [facility] Comment on above: Performed By: #### C DP, CMPX #### [address] [place], [facility] Bearing Grinder: Joelle Parker MD Lymphocytes (Bld) [#/Vol] 0.87 10*3/uL Low 1.10-3.70 [facility] Comment on above: Performed By: #### C DP, CMPX #### [address] [place], [place] [phone] Bearing Grinder: Joelle Parker MD Lymphocytes/100 WBC (Bld) 7 % Low 24-43 [facility] Comment on above: Performed By: #### C DP, CMPX #### [address] [place], [place] [phone] Bearing Grinder: Joelle Parker MD MCH (RBC) [Entitic mass] 26.0 pg Normal 25.2-33.5 [facility] Comment on above: Performed By: #### C DP, CMPX #### [facility] [address] [place], [place] [phone] Bearing Grinder: Joelle Parker MD MCHC (RBC) [Mass/Vol] 31.5 g/dL Normal 28.4-34.8 [facility] Comment on above: Performed By: #### C DP, CMPX #### [facility] [address] [place], [place] [phone] Bearing Grinder: Joelle Parker MD MCV (RBC) [Entitic vol] 82.8 fL Normal 82.6-102.9 [facility] Comment on above: Performed By: #### C DP, CMPX #### [address] [place] [id number] Bearing Grinder: Joelle Parker MD Monocytes (Bld) [#/Vol] 0.69 10*3/uL Normal 0.10-1.20 [facility] Comment on above: Performed By: #### C DP, CMPX #### [address] [place], [place] [phone] Bearing Grinder: Joelle Parker MD Monocytes/100 WBC (Bld) 5 % Normal 3-12 [facility] Comment on above: Performed By: #### C DP, CMPX #### [address] [place], [place] [phone] Bearing Grinder: Joelle Parker MD Neutrophil (Seg) 88 % High 36-65 [facility] Comment on above: Performed By: #### C DP, CMPX #### [address] [place] [address] Bearing Grinder: Joelle Parker MD NRBC Automated 0.0 per 100 WBC Normal 0.0 [facility] Comment on above: Performed By: #### C DP, CMPX #### [facility] [address] [place], [place] [phone] Bearing Grinder: Joelle Parker MD Platelet mean volume (Bld) [Entitic vol] 8.9 fL Normal 8.1-13.5 [facility] Comment on above: Performed By: #### C DP, CMPX #### [facility] [address] [place], [place] [id number] Bearing Grinder: Joelle Parker MD Platelets (Bld) [#/Vol] 196 10*3/uL Normal 138-453 [facility] Comment on above: Performed By: #### C DP, CMPX #### [facility] [address] [place] [address] Bearing Grinder: Joelle Parker MD RBC (Bld) [#/Vol] 4.07 10*6/uL Low 4.21-5.77 [facility] Comment on above: Performed By: #### C DP, CMPX #### [facility] [address] [place], [place] [phone] Bearing Grinder: Joelle Parker MD WBC (Bld) [#/Vol] 13.5 10*3/uL High 3.5-11.3 [facility] Comment on above: Performed By: #### C DP, CMPX #### [address] [place], [facility]83 Bearing Grinder: Joelle Parker MD CT ANKLE LEFT W [...] Erasmo Domínguez MD 05/05/22 Final result Normal [facility] Chronic erosive changes of the posterosuperior aspect of the calcaneus at the Achilles tendon insertion with superimposed acute erosions not excluded. 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 These findings may be sterile although septic bursitis and osteomyelitis cannot be excluded. No soft tissue gas. [facility] RIS CONSOLIDATED EXAMINATION: CT OF [...] visualized aspects of the midfoot are unremarkable. [facility] Erasmo Wiseman MD - 05/05/2022 [...] cannot be excluded. No soft tissue gas. [employer] Phone: Radiology Study observation (narrative) [employer] Phone: CT ANKLE LEFT W CONTRASTOrde red By: Erasmo Domínguez on 05-05-2022 [facility] Phone: Comp Metabolic Pr/rfx MGon 0 05-05-2022 (cont.) Normal [facility] Comment on above: Result Comment: Aver age GFR for 40-49 years old: 99 mL/min/1.73sq m Chronic Kidney Disease: <60 mL/min/1.73sq m Kidney failure: <15 mL/min/1.73sq m eGFR calculated using average adult body mass. Additional eGFR calculator available at: http://www.[employer]/multiple_crcl_2011.htm Performed By: #### C NICHOLAS CMPX #### [facility] [address] [place] [address] Bearing Grinder: Joelle Parker MD Albumin/Glob Ratio 0.8 Low 1.0-2.5 [facility] Comment on above: Performed By: #### C NICHOLAS CMPX #### [facility] [address] [place], [place] [phone] Bearing Grinder: Joelle Parker MD Alkaline Phos 82 U/L Normal 40-129 [facility] Comment on above: Performed By: #### C DP, CMPX #### [facility] [address] [place], [place] [phone] Bearing Grinder: Joelle Parker MD BUN/CRE Ratio 10 Normal 9-20 [facility] Comment on above: Performed By: #### C DP, CMPX #### [facility] [address] [place], [place] [phone] Bearing Grinder: Joelle Parker MD GFR, Amer >60 Normal >60 [facility] Comment on above: Performed By: #### C DP, CMPX #### [facility] [address] [place], [place] [phone] Bearing Grinder: Joelle Parker MD GFR,non Amer >60 Normal >60 [facility] Comment on above: Performed By: #### C DP, CMPX #### [facility] [address] [place], [place] [phone] Bearing Grinder: Joelle Parker MD Protein [Mass/Vol] 7.9 g/dL Normal 6.4-8.3 [facility] Comment on above: Performed By: #### C DP, CMPX #### [facility] [address] [place], [place] [phone] Bearing Grinder: Joelle Parker MD Staging: Normal [facility] Comment on above: Result Comment: Stag e 1: Some kidney damage normal GFR Stage 2: Mild kidney damage GFR 60-89 Stage 3: Moderate kidney damage GFR 30-59 Stage 4: Severe kidney damage GFR 15-29 Stage 5: Severe kidney damage GFR <15 ESRD - chronic treatment by dialysis or transplant Performed By: #### C DP, CMPX #### [facility] [address] [place], [place] [phone] Bearing Grinder: Joelle Parker MD Urea nitrogen [Mass/Vol] 7 mg/dL Normal 6-20 [facility] Comment on above: Performed By: #### C DP, CMPX #### [facility] [address] [place] [address] Bearing Grinder: Joelle Parker MD Albumin [Mass/Vol] 3.4 g/dL Low 3.5-5.2 [facility] Comment on above: Performed By: #### C DP, CMPX #### [facility] [address] [place] [address] Dr[place], [place] [phone] Bearing Grinder: Joelle Parker MD ALT [Catalytic activity/Vol] 17 U/L Normal 5-41 [facility] Comment on above: Performed By: #### C DP, CMPX #### [address] [place] [address] Bearing Grinder: Joelle Parker MD Anion gap [Moles/Vol] 9 mmol/L Normal 9-17 [facility] Comment on above: Performed By: #### C DP, CMPX #### [address] [place] [address] Bearing Grinder: Joelle Parker MD AST [Catalytic activity/Vol] 15 U/L Normal <40 [facility] Comment on above: Performed By: #### C DP, CMPX #### [address] [place] [address] Bearing Grinder: Joelle Parker MD Bilirubin [Mass/Vol] 0.53 mg/dL Normal 0.3-1.2 [facility] [facility] Comment on above: Performed By: #### C DP, CMPX #### [address] [place] [address] Bearing Grinder: Joelle Parker MD Calcium [Mass/Vol] 9.1 mg/dL Normal 8.6-10.4 [facility] Comment on above: Performed By: #### C DP, CMPX #### [facility] [address] [place] [address] Bearing Grinder: Joelle Parker MD Chloride [Moles/Vol] 100 mmol/L Normal 98-107 [facility] Comment on above: Performed By: #### C DP, CMPX #### [address] [place] [address] Bearing Grinder: Joelle Parker MD CO2 [Moles/Vol] 25 mmol/L Normal 20-31 [facility] Comment on above: Performed By: #### C DP, CMPX #### [address] [place] [address] Bearing Grinder: Joelle Parker MD Creatinine [Mass/Vol] 0.72 mg/dL Normal 0.70-1.20 [facility] Comment on above: Performed By: #### C DP, CMPX #### [address] [place], [place] [id number] Bearing Grinder: Joelle Parker MD Glucose [Mass/Vol] 111 mg/dL High 70-99 [facility] Comment on above: Performed By: #### C DP, CMPX #### [address] [place] [address] Bearing Grinder: Joelle Parker MD Potassium [Moles/Vol] 3.6 mmol/L Low 3.7-5.3 [facility] Comment on above: Performed By: #### C DP, CMPX #### [address] [place] [address] Bearing Grinder: Joelle Parker MD Sodium [Moles/Vol] 134 mmol/L Low 135-144 [facility] Comment on above: Performed By: #### C DP, CMPX #### [address] [place] [address] Bearing Grinder: Joelle Parker MD Comprehensive Metabolic Pane l w/ Reflex to MGon 05-05-2022 Albumin/Globulin [Mass ratio] 0.8 {ratio} Low [facility] ALP (Bld) [Catalytic activity/Vol] 82 U/L 40 - 129 U/L [facility] Free PSA/Total PSA [Mass fraction] 7.9 g/dL 6.4 - 8.3 g/dL [facility] GFR >60 >60 mL/min [facility] GFR Non- >60 >60 mL/min [facility] Interpretation and review of laboratory results Abnormal [facility] Urea nitrogen (BldV) [Mass/Vol] 7 mg/dL 6 - 20 mg/dL [facility] Urea nitrogen/Creatinine (Bld) [Mass ratio] 10 [facility] Laboratory - Chemistry and C hemistry - challengeon 05-05-2022 GFR/1.73 sq M.predicted MDRD (S/P/Bld) [Vol rate/Area] [facility] Comment on above: Average GFR for 40-4 9 years old: 99 mL/min/1.73sq m Chronic Kidney Disease: <60 mL/min/1.73sq m Kidney failure: <15 mL/min/1.73sq m eGFR calculated using average adult body mass. Additional eGFR calculator available at: http://www.NovaPlanner.[employer]/multiple_crcl_2012.htm Stage 1: Some kidney damage normal GFR Stage 2: Mild kidney damage GFR 60-89 Stage 3: Moderate kidney damage GFR 30-59 Stage 4: Severe kidney damage GFR 15-29 Stage 5: Severe kidney damage GFR <15 ESRD - chronic treatment by dialysis or transplant Lactate, Sepsison 05-05-2022 Lactic Acid, Sepsis 1.3 mmol/L Normal 0.5-1.9 [facility] Comment on above: Performed By: #### L ACDS #### [facility] [address] [place] [address] Bearing Grinder: Joelle Parker MD Lactic Acid, Sepsis 1.3 mmol/L 0.5 - 1. 9 mmol/L [facility] CT CHEST WO CONTRASTon 02-14 New 1 [...] 02/14/2022to be communicated to a licensed caregiver. [facility] EXAMINATION: CT OF THE [...] base. Upper Abdomen: Unremarkable Soft Tissues/Bones: Unremarkable [facility] Hank Red MD - [...] 02/14/2022to be communicated to a licensed caregiver. [employer] [employer] Work Phone: Radiology Study observation (narrative) [facility] Work Phone: CT CHEST WO CONTRASTOrdered By: Hank Red on 02-14-2022 [facility] [employer] Work Phone: ECHO Complete 2D W Doppler W Coloron 02-14-2022 [facility] Transthoracic Echocardiography Report (TTE) Patient Name COTY Date of Study 02/14/2022 TIP Plata Date of 1980 Gender Male Age 42 year(s) Race Room Number Height: 72 inch, 182.88 cm Corporate ID [id number] Weight: 174 pounds, 78.9 kg # Patient Acct [id number] BSA: 2.01 m^2 BMI: 23.6 kg/m^2 # MR # [id number] [employer] Stock Clerk Elva Dejesus Interpreting Physician Alec Cheung Fellow Referring Nurse Practitioner Interpreting Referring Physician Tip Parker, Fellow LAYER OUT PLATE GLASS-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 Type of Study TTE procedure:2D Echocardiogram, M-Mode, Doppler, Color Doppler. Procedure Date Date: 02/14/2022 Start: 01:14 PM Study Location: [facility] Technical Quality: Fair visualization Indications:Endocardi tis, [...] STV CPACS Alec Cheung MD - 02/14/2022 [facility] Transthoracic Echocardiography Report (TTE) Patient Name COTY Date of Study 02/14/2022 TIP Plata Date of 1980 Gender Male Age 42 year(s) Race Room Number Height: 72 inch, 182.88 cm Corporate ID [id number] Weight: 174 pounds, 78.9 kg # Patient Acct [id number] BSA: 2.01 m^2 BMI: 23.6 kg/m^2 # MR # [id number] Finished [employer]s Stock Clerk Elva Dejesus Interpreting Physician Alec Cheung Fellow Referring Nurse Practitioner Interpreting Referring Physician Tip Parker, Fellow MIAN-LUCIANO Type of Study TTE procedure:2D Echocardiogram, M-Mode, Doppler, Color Doppler. Procedure Date Date: 02/14/2022 Start: 01:14 PM Study Location: [facility] Technical Quality: Fair visualization Indications:Endocardi tis, [...] 3.57 mmHg Es (more content not included)... [employer] Work Phone: ECHO Complete 2D W Doppler W ColorOrdered By: Alec Cheung on 02-14-2022 [employer] Work Phone: Basic Metabolic Panel w/ Ref rebecca to MGon 01-30-2022 Anion gap [Moles/Vol] 8 mmol/L Low 9 - 17 mmol/L [facility] Calcium [Mass/Vol] 7.8 mg/dL Low 8.6 - 10. 4 mg/dL [facility] Chloride [Moles/Vol] 103 mmol/L 98 - 10 7 mmol/L [facility] CO2 [Moles/Vol] 23 mmol/L 20 - 31 mmol/L [facility] Creatinine [Mass/Vol] 0.88 mg/dL 0.70 - 1.20 mg/dL [facility] GFR >60 >60 mL/min [facility] GFR Non- >60 >60 mL/min Nasty [facility] GFR/1.73 sq M.predicted MDRD (S/P/Bld) [Vol rate/Area] [facility] Comment on above: Average GFR for 40-4 9 years old: 99 mL/min/1.73sq m Chronic Kidney Disease: <60 mL/min/1.73sq m Kidney failure: <15 mL/min/1.73sq m eGFR calculated using average adult body mass. Additional eGFR calculator available at: http://www.[employer]/multiple_crcl_2012.htm Glucose [Mass/Vol] 155 mg/dL High 70 - 99 mg/dL [facility] Potassium [Moles/Vol] 3.9 mmol/L 3.7 - 5.3 mmol/L [facility] Sodium [Moles/Vol] 134 mmol/L Low 135 - 144 mmol/L [facility] Urea nitrogen (BldV) [Mass/Vol] 15 mg/dL 6 - 20 mg/dL [facility]asty [facility] CBC with Auto Differentialon 01-30-2022 Absolute Eos # 0.31 [facility] Absolute Immature Granulocyte 0.10 [facility] Absolute Lymph # 1.35 [facility] Absolute [facility] # 1.77 High [facility] Basophils (Bld) [#/Vol] 0.00 10*3/uL [facility] Basophils/100 WBC (Bld) 0 % 0 - 2 % M [facility] Eosinophils/100 WBC (Bld) 3 % 1 - 4 % [facility] Hematocrit (Bld) [Volume fraction] 29.9 % Low 40.7 - 50.3 % [facility] Hemoglobin.gastrointesti nal spec 1 Ql (Stl) 10.2 g/dL Low 13.0 - 17.0 g/dL [facility] Immature granulocytes/100 WBC (Bld) 1 % High 0 [facility] Interpretation and review of laboratory results Abnormal [facility] Lymphocytes/100 WBC (Bld) 13 % Low 24 - 44 % [facility] MCH (RBC) [Entitic mass] 32.6 pg 25. 2 - 33.5 pg [facility] MCHC (RBC) [Mass/Vol] 34.1 g/dL 28.4 - 34.8 g/dL [facility] MCV (RBC) [Entitic vol] 95.5 fL 82.6 - 102.9 fL [facility] Monocytes/100 WBC (Bld) 17 % High 1 - 7 % [facility] Morphology Adis (Bld) [Interp] ANISOCYTOSIS PRESENT [facility] NRBC Automated 0.0 0.0 per 100 WBC [facility] Platelet distribution width (Bld) [Ratio] 16.2 % High 11.8 - 14.4 % [facility] Platelets (Bld) [#/Vol] See Reflexed IPF Result [facility] RBC (Bld) [#/Vol] 3.13 10*6/uL Low 4.21 - 5.7 7 m/uL [facility] Segmented neutrophils/100 WBC (Bld) 66 % 36 - 66 % [facility] Segs Absolute 6.87 [facility] [#/Vol] 10.4 10*3/uL [facility] CKon 01-30-2022 CK [Catalytic activity/Vol] 26 U/L Low 39 - 308 U/L [facility] Hepatic Function Panelon Albumin [Mass/Vol] 1.8 g/dL Low 3.5 - 5.2 g/dL [facility] Albumin/Globulin [Mass ratio] 0.4 {ratio} Low [facility] ALP (Bld) [Catalytic activity/Vol] 42 U/L 40 - 129 U/L [facility] ALT [Catalytic activity/Vol] 15 U/L 5 - 41 U/L [facility] AST [Catalytic activity/Vol] 29 U/L <40 [facility] Bilirubin [Mass/Vol] 1.66 mg/dL High 0.3 - 1 .2 mg/dL [facility] Bilirubin, Indirect 0.96 mg/dL 0.00 - 1 .00 mg/dL [facility] Bilirubin.indirect [Mass/Vol] 0.70 mg/dL High <0.31 [facility] Free PSA/Total PSA [Mass fraction] 6.4 g/dL 6.4 - 8.3 g/dL [facility] Immature Platelet Fractionon 01-30-2022 Interpretation and review of laboratory results Abnormal [facility] Platelet, Fluorescence 75 Low Me [facility] Comment on above: ORDERED BY LAB Platelet, Immature Fraction 3.3 % 1.1 - 10.3 % [facility] Comment on above: ORDERED BY LAB [facility] [employer] No Panel Informationon 01-30 Interpretation and review of laboratory results Abnormal [facility] SURGICAL PATHOLOGY REPORTon 01-30-2022 Surgical [...] SURGICAL PATHOLOGY CONSULTATION Patient Name: TIP ANSARI [facility] Rec: [id number] Path Number: [id number] [facility] [employer] [facility] ANATOMIC PATHOLOGY [address] [place] [address]. [place], [place] [address] [facility] Basic Metabolic Panel w/ Ref rebecca to MGon 01-29-2022 Anion gap [Moles/Vol] 10 mmol/L 9 - 17 mmol/L [facility] Calcium [Mass/Vol] 8.6 mg/dL 8.6 - 10. 4 mg/dL [facility] Chloride [Moles/Vol] 108 mmol/L High 98 - 10 7 mmol/L [facility] CO2 [Moles/Vol] 20 mmol/L 20 - 31 mmol/L [facility] Creatinine [Mass/Vol] 0.85 mg/dL 0.70 - 1.20 mg/dL [facility] GFR >60 >60 mL/min [facility] GFR Non- >60 >60 mL/min [facility] GFR/1.73 sq M.predicted MDRD (S/P/Bld) [Vol rate/Area] [facility] Comment on above: Average GFR for 40-4 9 years old: 99 mL/min/1.73sq m Chronic Kidney Disease: <60 mL/min/1.73sq m Kidney failure: <15 mL/min/1.73sq m eGFR calculated using average adult body mass. Additional eGFR calculator available at: http://www.[employer]/multiple_crcl_2012.htm Glucose [Mass/Vol] 95 mg/dL 70 - 99 mg/dL [facility] Potassium [Moles/Vol] 4.2 mmol/L 3.7 - 5.3 mmol/L [facility] Sodium [Moles/Vol] 138 mmol/L 135 - 144 mmol/L [facility] Urea nitrogen (BldV) [Mass/Vol] 31 mg/dL High 6 - 20 mg/dL [facility] CBC with Auto Differentialon 01-29-2022 Absolute Eos # 0.27 [facility] th Absolute Immature Granulocyte 0.05 [facility] Absolute Lymph # 1.01 Low [facility] Absolute [facility] # 1.01 [facility] Basophils (Bld) [#/Vol] 0.05 10*3/uL [facility] Basophils/100 WBC (Bld) 1 % 0 - 2 % M [facility] Eosinophils/100 WBC (Bld) 3 % 1 - 4 % [facility] Hematocrit (Bld) [Volume fraction] 29.8 % Low 40.7 - 50.3 % [facility] Hemoglobin.gastrointesti nal spec 1 Ql (Stl) 9.4 g/dL Low 13.0 - 17.0 g/dL [facility] Immature granulocytes/100 WBC (Bld) 1 % High 0 [facility] [employer] Interpretation and review of laboratory results Abnormal [facility] Lymphocytes/100 WBC (Bld) 10 % Low 24 - 43 % [facility] MCH (RBC) [Entitic mass] 28.0 pg 25. 2 - 33.5 pg [facility] MCHC (RBC) [Mass/Vol] 31.5 g/dL 28.4 - 34.8 g/dL [facility] MCV (RBC) [Entitic vol] 88.7 fL 82.6 - 102.9 fL [facility] Monocytes/100 WBC (Bld) 10 % 3 - 12 % M [facility] [employer] NRBC Automated 0.0 0.0 per 100 WBC [facility] Platelet distribution width (Bld) [Ratio] 17.4 % High 11.8 - 14.4 % [facility] Platelet mean volume (Bld) [Entitic vol] 8.7 fL 8.1 - 13.5 fL [facility] Platelets (Bld) [#/Vol] 131 10*3/uL Low [facility] RBC (Bld) [#/Vol] 3.36 10*6/uL Low 4.21 - 5.7 7 m/uL [facility] RBC (Bld) [#/Vol] ANISOCYTOSIS PRESENT [facility] Segmented neutrophils/100 WBC (Bld) 76 % High 36 - 65 % [facility] Segs Absolute 7.60 [facility] WBC (Bld) [#/Vol] 10.0 10*3/uL [facility] [employer] CKon 01-29-2022 CK [Catalytic activity/Vol] 10 U/L Low 39 - 308 U/L [facility] EKG 12 LeadOrdered By: Dorothy Pink on 01-29-2022 Atrial Rate 139 BPM [employer] Work Phone: P [place] 54 degrees [employer] [employer] Work Phone: P-R Interval 136 ms [employer] [employer] Work Phone: Q-T Interval 278 ms [employer] Work Phone: QRS Duration 78 ms [employer] [employer] Work Phone: QTc Calculation (Bazett) 423 ms [employer] [employer] Work Phone: R [place] 65 degrees [employer] Work Phone: T [place] 51 degrees [employer] [employer] Work Phone: Ventricular Rate 139 BPM [facility] Work Phone: [employer] Work Phone: EKG 12 Leadon 01-29-2022 Sinus tachycardia Otherwise normal ECG No previous ECGs available [facility] Dorothy Fu MD - 01/29/2022 Sinus tachycardia Otherwise normal ECG No previous ECGs available [employer] [employer] Work Phone: Hepatic Function Panelon Albumin [Mass/Vol] 2.6 g/dL Low 3.5 - 5.2 g/dL [facility] Albumin/Globulin [Mass ratio] 0.7 {ratio} Low [facility] ALP (Bld) [Catalytic activity/Vol] 88 U/L 40 - 129 U/L [facility] ALT [Catalytic activity/Vol] 39 U/L 5 - 41 U/L [facility] AST [Catalytic activity/Vol] 23 U/L <40 [facility] Bilirubin [Mass/Vol] 0.38 mg/dL 0.3 - 1 .2 mg/dL [facility] Bilirubin, Indirect 0.27 mg/dL 0.00 - 1 .00 mg/dL [facility] Bilirubin.indirect [Mass/Vol] 0.11 mg/dL <0.31 [facility] Free PSA/Total PSA [Mass fraction] 6.2 g/dL Low 6.4 - 8.3 g/dL [facility] No Panel Informationon 01-29 Interpretation and review of laboratory results Abnormal [facility] POC Glucose Fingerstickon Glucose [Mass/Vol] 100 mg/dL 75 - 110 mg/dL [facility] [employer] Basic Metabolic Panel w/ Ref rebecca to MGon 01-28-2022 Anion gap [Moles/Vol] 14 mmol/L 9 - 17 mmol/L [facility] Calcium [Mass/Vol] 8.9 mg/dL 8.6 - 10. 4 mg/dL [facility] Chloride [Moles/Vol] 103 mmol/L 98 - 10 7 mmol/L [facility] CO2 [Moles/Vol] 20 mmol/L 20 - 31 mmol/L [facility] Creatinine [Mass/Vol] 0.98 mg/dL 0.70 - 1.20 mg/dL [facility] GFR >60 >60 mL/min [facility] GFR Non- >60 >60 mL/min [facility] GFR/1.73 sq M.predicted MDRD (S/P/Bld) [Vol rate/Area] [facility] Comment on above: Average GFR for 40-4 9 years old: 99 mL/min/1.73sq m Chronic Kidney Disease: <60 mL/min/1.73sq m Kidney failure: <15 mL/min/1.73sq m eGFR calculated using average adult body mass. Additional eGFR calculator available at: http://www.[employer]/multiple_crcl_2012.htm Glucose [Mass/Vol] 153 mg/dL High 70 - 99 mg/dL [facility] Interpretation and review of laboratory results Abnormal [facility] Potassium [Moles/Vol] 3.5 mmol/L Low 3.7 - 5.3 mmol/L [facility] Sodium [Moles/Vol] 137 mmol/L 135 - 144 mmol/L [facility] Urea nitrogen (BldV) [Mass/Vol] 29 mg/dL High 6 - 20 mg/dL [facility] CBC with Auto Differentialon 01-28-2022 Absolute Eos # 0.24 [facility] th Absolute Immature Granulocyte 0.08 [facility] Absolute Lymph # 1.40 [facility] Absolute [facility] # 0.46 [facility] Basophils (Bld) [#/Vol] 0.03 10*3/uL [facility] Basophils/100 WBC (Bld) 0 % 0 - 2 % [facility] Eosinophils/100 WBC (Bld) 3 % 1 - 4 % [facility] Hematocrit (Bld) [Volume fraction] 30.1 % Low 40.7 - 50.3 % [facility] Hemoglobin.gastrointesti nal spec 1 Ql (Stl) 9.4 g/dL Low 13.0 - 17.0 g/dL [facility] Immature granulocytes/100 WBC (Bld) 1 % High 0 [facility] Interpretation and review of laboratory results Abnormal [facility] Lymphocytes/100 WBC (Bld) 18 % Low 24 - 43 % [facility] MCH (RBC) [Entitic mass] 28.1 pg 25. 2 - 33.5 pg [facility] MCHC (RBC) [Mass/Vol] 31.2 g/dL 28.4 - 34.8 g/dL [facility] MCV (RBC) [Entitic vol] 90.1 fL 82.6 - 102.9 fL [facility] Monocytes/100 WBC (Bld) 6 % 3 - 12 % [facility] NRBC Automated 0.0 0.0 per 100 WBC [facility] Platelet distribution width (Bld) [Ratio] 16.6 % High 11.8 - 14.4 % [facility] Platelet mean volume (Bld) [Entitic vol] 8.8 fL 8.1 - 13.5 fL [facility] Platelets (Bld) [#/Vol] 178 10*3/uL [facility] RBC (Bld) [#/Vol] 3.34 10*6/uL Low 4.21 - 5.7 7 m/uL [facility] RBC (Bld) [#/Vol] ANISOCYTOSIS PRESENT [facility] Segmented neutrophils/100 WBC (Bld) 72 % High 36 - 65 % [facility] Segs Absolute 5.55 [facility] WBC (Bld) [#/Vol] 7.8 10*3/uL [facility] CKon 01-28-2022 CK [Catalytic activity/Vol] 8 U/L Low 39 - 308 U/L [facility] Interpretation and review of laboratory results Abnormal [facility] Culture, Blood 1on 2 Bacteria identified Cx Nom (Unsp spec) NO GROWTH 5 DAYS [facility] Special Requests RIGHT FOREARM 20ML [facility] Specimen Description .BLOOD [facility] Bacteria identified Cx Nom (Unsp spec) NO GROWTH 5 DAYS [facility] Special Requests RIGHT HAND 20ML [facility] Specimen Description .BLOOD [facility] Hepatic Function Panelon Albumin [Mass/Vol] 3 g/dL Low 3.5 - 5.2 g/dL [facility] Albumin/Globulin [Mass ratio] 0.9 {ratio} Low [facility] ALP (Bld) [Catalytic activity/Vol] 96 U/L 40 - 129 U/L [facility] ALT [Catalytic activity/Vol] 21 U/L 5 - 41 U/L [facility] AST [Catalytic activity/Vol] 10 U/L <40 [facility] Bilirubin [Mass/Vol] mg/dL Low 0.3 - 1 .2 mg/dL [facility] Bilirubin, Indirect Can not be calculated 0.00 - 1.00 mg/dL [facility] Bilirubin.indirect [Mass/Vol] mg/dL <0.31 mg/dL [facility] Free PSA/Total PSA [Mass fraction] 6.4 g/dL 6.4 - 8.3 g/dL [facility] Interpretation and review of laboratory results Abnormal [facility] Lactic Acidon 01-28-2022 Lactic Acid, Whole Blood 1.6 mmol/L 0.7 - 2.1 mmol/L [facility] Interpretation and review of laboratory results Abnormal [facility] Lactic Acid, Whole Blood 4.9 mmol/L High 0.7 - 2.1 mmol/L [facility] Magnesiumon 01-28-2022 Magnesium [Mass/Vol] 1.7 mg/dL 1.6 - 2 .6 mg/dL [facility] Basic Metabolic Panel w/ Ref rebecca to MGon 01-27-2022 Anion gap [Moles/Vol] 11 mmol/L 9 - 17 mmol/L [facility] Calcium [Mass/Vol] 9.1 mg/dL 8.6 - 10. 4 mg/dL [facility] Chloride [Moles/Vol] 101 mmol/L 98 - 10 7 mmol/L [facility] CO2 [Moles/Vol] 24 mmol/L 20 - 31 mmol/L [facility] Creatinine [Mass/Vol] 0.93 mg/dL 0.70 - 1.20 mg/dL [facility] GFR >60 >60 mL/min [facility] GFR Non- >60 >60 mL/min [facility] GFR/1.73 sq M.predicted MDRD (S/P/Bld) [Vol rate/Area] [facility] Comment on above: Average GFR for 40-4 9 years old: 99 mL/min/1.73sq m Chronic Kidney Disease: <60 mL/min/1.73sq m Kidney failure: <15 mL/min/1.73sq m eGFR calculated using average adult body mass. Additional eGFR calculator available at: http://www.[employer]/multiple_crcl_2011.htm Glucose [Mass/Vol] 187 mg/dL High 70 - 99 mg/dL [facility] Potassium [Moles/Vol] 4.4 mmol/L 3.7 - 5.3 mmol/L [facility] Sodium [Moles/Vol] 136 mmol/L 135 - 144 mmol/L [facility] Urea nitrogen (BldV) [Mass/Vol] 25 mg/dL High 6 - 20 mg/dL [facility] CBC with Auto Differentialon 01-27-2022 Absolute Eos # 0.20 [facility] th Absolute Immature Granulocyte 0.00 [facility] Absolute Lymph # 1.39 [facility] alth Absolute [facility] # 0.79 [facility] Basophils (Bld) [#/Vol] 0.00 10*3/uL [facility] Basophils/100 WBC (Bld) 0 % 0 - 2 % [facility] Eosinophils/100 WBC (Bld) 1 % 1 - 4 % [facility] Hematocrit (Bld) [Volume fraction] 31.8 % Low 40.7 - 50.3 % [facility] Hemoglobin.gastrointesti nal spec 1 Ql (Stl) 10.1 g/dL Low 13.0 - 17.0 g/dL [facility] Immature granulocytes/100 WBC (Bld) 0 % 0 [facility] Interpretation and review of laboratory results Abnormal [facility] Lymphocytes/100 WBC (Bld) 7 % Low 24 - 44 % [facility] MCH (RBC) [Entitic mass] 27.5 pg 25. 2 - 33.5 pg [facility] MCHC (RBC) [Mass/Vol] 31.8 g/dL 28.4 - 34.8 g/dL [facility] MCV (RBC) [Entitic vol] 86.6 fL 82.6 - 102.9 fL [facility] Monocytes/100 WBC (Bld) 4 % 1 - 7 % [facility] Morphology Adis (Bld) [Interp] ANISOCYTOSIS PRESENT [facility] NRBC Automated 0.0 0.0 per 100 WBC [facility] Platelet distribution width (Bld) [Ratio] 16.1 % High 11.8 - 14.4 % [facility] Platelet mean volume (Bld) [Entitic vol] 9.2 fL 8.1 - 13.5 fL [facility] Platelets (Bld) [#/Vol] 201 10*3/uL [facility] RBC (Bld) [#/Vol] 3.67 10*6/uL Low 4.21 - 5.7 7 m/uL [facility] Segmented neutrophils/100 WBC (Bld) 88 % High 36 - 66 % [facility] Segs Absolute 17.42 High [facility] WBC (Bld) [#/Vol] 19.8 10*3/uL High [facility] Health CKon 01-27-2022 CK [Catalytic activity/Vol] 11 U/L Low 39 - 308 U/L [facility] Hepatic Function Panelon Albumin [Mass/Vol] 3.1 g/dL Low 3.5 - 5.2 g/dL [facility] Albumin/Globulin [Mass ratio] 0.8 {ratio} Low [facility] ALP (Bld) [Catalytic activity/Vol] 87 U/L 40 - 129 U/L [facility] ALT [Catalytic activity/Vol] 27 U/L 5 - 41 U/L [facility] AST [Catalytic activity/Vol] 14 U/L <40 [facility] Bilirubin [Mass/Vol] 0.30 mg/dL 0.3 - 1 .2 mg/dL [facility] Bilirubin, Indirect 0.21 mg/dL 0.00 - 1 .00 mg/dL [facility] Bilirubin.indirect [Mass/Vol] 0.09 mg/dL <0.31 [facility] Free PSA/Total PSA [Mass fraction] 7.2 g/dL 6.4 - 8.3 g/dL [facility] No Panel Informationon 01-27 Interpretation and review of laboratory results Abnormal [facility] Basic Metabolic Panel w/ Ref rebecca to MGon 01-26-2022 Anion gap [Moles/Vol] 12 mmol/L 9 - 17 mmol/L [facility] Calcium [Mass/Vol] 9.5 mg/dL 8.6 - 10. 4 mg/dL [facility] Chloride [Moles/Vol] 104 mmol/L 98 - 10 7 mmol/L [facility] CO2 [Moles/Vol] 21 mmol/L 20 - 31 mmol/L [facility] Creatinine [Mass/Vol] 0.95 mg/dL 0.70 - 1.20 mg/dL [facility] GFR >60 >60 mL/min [facility] GFR Non- >60 >60 mL/min [facility] GFR/1.73 sq M.predicted MDRD (S/P/Bld) [Vol rate/Area] [facility] Comment on above: Average GFR for 40-4 9 years old: 99 mL/min/1.73sq m Chronic Kidney Disease: <60 mL/min/1.73sq m Kidney failure: <15 mL/min/1.73sq m eGFR calculated using average adult body mass. Additional eGFR calculator available at: http://www.[employer]/multiple_crcl_2011.htm Glucose [Mass/Vol] 123 mg/dL High 70 - 99 mg/dL [facility] Potassium [Moles/Vol] 4.2 mmol/L 3.7 - 5.3 mmol/L [facility] Sodium [Moles/Vol] 137 mmol/L 135 - 144 mmol/L [facility] Urea nitrogen (BldV) [Mass/Vol] 26 mg/dL High 6 - 20 mg/dL [facility] CBC with Auto Differentialon 01-26-2022 Absolute Eos # 0.42 [facility] th Absolute Immature Granulocyte 0.09 [facility] Absolute Lymph # 1.63 [facility] alth Absolute Hopkins # 1.[address] [facility] lth Basophils (Bld) [#/Vol] 0.07 10*3/uL [facility] Basophils/100 WBC (Bld) 1 % 0 - 2 % [facility] Eosinophils/100 WBC (Bld) 5 % High 1 - 4 % [facility] Hematocrit (Bld) [Volume fraction] 33.3 % Low 40.7 - 50.3 % [facility] Hemoglobin.gastrointesti nal spec 1 Ql (Stl) 10.7 g/dL Low 13.0 - 17.0 g/dL [facility] Immature granulocytes/100 WBC (Bld) 1 % High 0 [facility] Interpretation and review of laboratory results Abnormal [facility] Lymphocytes/100 WBC (Bld) 20 % Low 24 - 43 % [facility] MCH (RBC) [Entitic mass] 27.8 pg 25. 2 - 33.5 pg [facility] MCHC (RBC) [Mass/Vol] 32.1 g/dL 28.4 - 34.8 g/dL [facility] MCV (RBC) [Entitic vol] 86.5 fL 82.6 - 102.9 fL [facility] Monocytes/100 WBC (Bld) 14 % High 3 - 12 % [facility] NRBC Automated 0.0 0.0 per 100 WBC [facility] Platelet distribution width (Bld) [Ratio] 16.6 % High 11.8 - 14.4 % [facility] Platelet mean volume (Bld) [Entitic vol] 8.7 fL 8.1 - 13.5 fL [facility] Platelets (Bld) [#/Vol] 183 10*3/uL [facility] RBC (Bld) [#/Vol] 3.85 10*6/uL Low 4.21 - 5.7 7 m/uL [facility] RBC (Bld) [#/Vol] ANISOCYTOSIS PRESENT [facility] Segmented neutrophils/100 WBC (Bld) 59 % 36 - 65 % [facility] Segs Absolute 4.87 [facility] WBC (Bld) [#/Vol] 8.2 10*3/uL [facility] CKon 01-26-2022 CK [Catalytic activity/Vol] 10 U/L Low 39 - 308 U/L [facility] Culture, Blood 1on 2 Bacteria identified Cx Nom (Unsp spec) NO GROWTH 5 DAYS [facility] Special Requests UNKNOWN [facility] Specimen Description .BLOOD [facility] FLUORO FOR SURGICAL PROCEDUR ESon 01-26-2022 Radiology exam is complete. No Radiologist dictation. Please follow up with ordering provider. [facility] RIS CONSOLIDATED Hepatic Function Panelon Albumin [Mass/Vol] 3.1 g/dL Low 3.5 - 5.2 g/dL [facility] Albumin/Globulin [Mass ratio] 0.6 {ratio} Low [facility] ALP (Bld) [Catalytic activity/Vol] 99 U/L 40 - 129 U/L [facility] ALT [Catalytic activity/Vol] 30 U/L 5 - 41 U/L [facility] AST [Catalytic activity/Vol] 19 U/L <40 [facility] Bilirubin [Mass/Vol] 0.21 mg/dL Low 0.3 - 1 .2 mg/dL [facility] Bilirubin, Indirect Can not be calculated 0.00 - 1.00 mg/dL [facility] Bilirubin.indirect [Mass/Vol] mg/dL <0.31 mg/dL [facility] Free PSA/Total PSA [Mass fraction] 8.0 g/dL 6.4 - 8.3 g/dL [facility] No Panel Informationon 01-26 Interpretation and review of laboratory results Abnormal [facility] US Heart Transesophagealon 0 01-26-2022 Transesophageal Echocardiography Report (GIANFRANCO) Patient Name COTY MIRANDA Date of Study 01/24/2022 A Date of 1980 Gender Male Age 42 year(s) Race Room Number 2009 Height: 72 inch, 182.88 cm Corporate ID [id number] Weight: 161 pounds, 73 kg # Patient Acct [id number] BSA: 1.94 m^2 BMI: 21.84 # kg/m^2 MR # [id number] [employer] Karin Denis Interpreting Physician Gordo Rueda [employer]inder[employer] Fellow Gaye Lewis Referring Nurse Practitioner Interpreting Referring Physician MARISOL ANDREA, * Fellow Type of Study GIANFRANCO procedure:2D echocardiogram, Color Doppler, TRANSESOPHAGEAL ECHO. Procedure Date Date: 01/24/2022 Start: 10:42 AM Study Location: [facility] Technical Quality: Good visualization Indications:Endocardi tis. History [...] Miscellaneous The aorta shows mild plaque formation. 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 Procedure Date Date: 01/24/2022 Start: 10:42 AM Study Location: [facility] Technical Quality: Good visualization Indications:Endocardi tis. History [...] Miscellaneous The aorta shows mild plaque formation. [facility] Work Phone: US Heart TransesophagealOrde red By: Gauri Guerrero on 01-26-2022 [facility] Work Phone: Basic Metabolic Panel w/ Ref rebecca to MGon 01-25-2022 Anion gap [Moles/Vol] 14 mmol/L 9 - 17 mmol/L [facility] Calcium [Mass/Vol] 9.0 mg/dL 8.6 - 10. 4 mg/dL [facility] Chloride [Moles/Vol] 105 mmol/L 98 - 10 7 mmol/L [facility] CO2 [Moles/Vol] 20 mmol/L 20 - 31 mmol/L [facility] Creatinine [Mass/Vol] 0.82 mg/dL 0.70 - 1.20 mg/dL [facility] GFR >60 >60 mL/min [facility] GFR Non- >60 >60 mL/min [facility] GFR/1.73 sq M.predicted MDRD (S/P/Bld) [Vol rate/Area] [facility] Comment on above: Average GFR for 40-4 9 years old: 99 mL/min/1.73sq m Chronic Kidney Disease: <60 mL/min/1.73sq m Kidney failure: <15 mL/min/1.73sq m eGFR calculated using average adult body mass. Additional eGFR calculator available at: http://www.[employer]/multiple_crcl_2011.htm Glucose [Mass/Vol] 109 mg/dL High 70 - 99 mg/dL [facility] Potassium [Moles/Vol] 4.4 mmol/L 3.7 - 5.3 mmol/L [facility] Sodium [Moles/Vol] 139 mmol/L 135 - 144 mmol/L [facility] Urea nitrogen (BldV) [Mass/Vol] 19 mg/dL 6 - 20 mg/dL [facility] CBC with Auto Differentialon 01-25-2022 Absolute Eos # 0.34 [facility] th Absolute Immature Granulocyte 0.07 [facility] Absolute Lymph # 1.54 [facility] alth Absolute [facility] # 1.[address] [facility] lt Basophils (Bld) [#/Vol] 0.04 10*3/uL [facility] Basophils/100 WBC (Bld) 0 % 0 - 2 % [facility] Eosinophils/100 WBC (Bld) 4 % 1 - 4 % [facility] Hematocrit (Bld) [Volume fraction] 34.5 % Low 40.7 - 50.3 % [facility] Hemoglobin.gastrointesti nal spec 1 Ql (Stl) 10.6 g/dL Low 13.0 - 17.0 g/dL [facility] Immature granulocytes/100 WBC (Bld) 1 % High 0 [facility] Interpretation and review of laboratory results Abnormal [facility] Lymphocytes/100 WBC (Bld) 17 % Low 24 - 43 % [facility] MCH (RBC) [Entitic mass] 27.5 pg 25. 2 - 33.5 pg [facility] MCHC (RBC) [Mass/Vol] 30.7 g/dL 28.4 - 34.8 g/dL [facility] MCV (RBC) [Entitic vol] 89.6 fL 82.6 - 102.9 fL [facility] Monocytes/100 WBC (Bld) 11 % 3 - 12 % [facility] NRBC Automated 0.0 0.0 per 100 WBC [facility] Platelet distribution width (Bld) [Ratio] 16.6 % High 11.8 - 14.4 % [facility] Platelet mean volume (Bld) [Entitic vol] 9.2 fL 8.1 - 13.5 fL [facility] Platelets (Bld) [#/Vol] 189 10*3/uL [facility] RBC (Bld) [#/Vol] 3.85 10*6/uL Low 4.21 - 5.7 7 m/uL [facility] RBC (Bld) [#/Vol] ANISOCYTOSIS PRESENT [facility] Segmented neutrophils/100 WBC (Bld) 67 % High 36 - 65 % [facility] Segs [facility] 5.95 [facility] [#/Vol] 9.0 10*3/uL [facility] CKon 01-25-2022 CK [Catalytic activity/Vol] 9 U/L Low 39 - 308 U/L [facility] Cult,Bloodon 01-25-2022 Cult,Blood Specimen Description .BLOOD Special Requests 5 ML R ELBOW Culture NO GROWTH 5 DAYS Report Status FINAL 01/25/2022 Normal [facility] Comment on above: Performed By: #### B C #### [facility] [address] [place] [address] Bearing Grinder: Joelle Parker MD Cult,Blood Specimen Description .BLOOD Special Requests 20 ML LEFT FOREARM Culture NO GROWTH 5 DAYS Report Status FINAL 01/25/2022 [facility] Comment on above: Performed By: #### B C #### [facility] [address] [place] [address] Bearing Grinder: oJelle Parker MD Culture, Blood 1on 2 Bacteria identified Cx Nom (Unsp spec) Positive [facility] Bacteria identified Cx Nom (Unsp spec) DIRECT GRAM STAIN FROM BOTTLE: YEAST [facility] Bacteria identified Cx Nom (Unsp spec) Detected: Nathanile albicans Detected: Methodology- Polymerase Chain Reaction (PCR) [facility] Bacteria identified Cx Nom (Unsp spec) NATHANIEL ALBICANS [facility] Bacteria identified Cx Nom (Unsp spec) (NOTE) Direct Gram Stain from bottle and Polymerase Chain Reaction (PCR) results called to and read back by: SRUTHI Sawyer RN AT 1925 ON 01/22/22. [facility] Special Requests 5ML UNK SITE [facility] Specimen Description .BLOOD [facility] Special Requests 5ML R HAND [facility] Special Requests 5ML R WRIST [facility] ealth Hepatic Function Panelon Albumin [Mass/Vol] 3 g/dL Low 3.5 - 5.2 g/dL [facility] Albumin/Globulin [Mass ratio] 0.7 {ratio} Low [facility] ALP (Bld) [Catalytic activity/Vol] 99 U/L 40 - 129 U/L [facility] ALT [Catalytic activity/Vol] 31 U/L 5 - 41 U/L [facility] AST [Catalytic activity/Vol] 21 U/L <40 [facility] Bilirubin [Mass/Vol] 0.20 mg/dL Low 0.3 - 1 .2 mg/dL [facility] Bilirubin, Indirect Can not be calculated 0.00 - 1.00 mg/dL [facility] Bilirubin.indirect [Mass/Vol] mg/dL <0.31 mg/dL [facility] Free PSA/Total PSA [Mass fraction] 7.5 g/dL 6.4 - 8.3 g/dL [facility] Infectious Disease Intervent ionon 01-25-2022 Intervention Targeted therapy [facility] Comment on above: Endocarditis nathaniel and recent MRSA [facility] Laboratory - Microbiology an d Antimicrobial susceptibilityon 01-25-2022 Bacteria identified Cx Nom (Unsp spec) NO GROWTH 5 DAYS [facility] No Panel Informationon 01-25 Teofilo Becker RN 01/25/2022 7:26 PM Picc placement note: PICC approved per ID. Prescribed IV Therapy= Multiple prison IV Abx/Antifungals Peripheral ultrasound assessment done, right [...] Time out Performed using [employer] Lot #[id number] Expiration date = Catheter size 5 mohawk Trimmed at 45cm Total length inserted 40cm [...] with an education handout on line insertion. [facility] FAQ Catheter Associated Blood Stream Infections and [facility] [id number] REV. 05/23 Nursing and Booklet left at bedside or in chart. Patient (Family or POA) acknowledged understanding of information taught and agreed to procedure. Teofilo Becker RN [facility] Work Phone: Interpretation and review of laboratory results Abnormal [facility] Specimen Description .BLOOD [facility] Tip Confirmation System (TCS ) and/ or Chest Xray for tip confirmationon 01-25-2022 [facility] [employer] Work Phone: COVID-19, Rapidon 01-24-2022 SARS-CoV-2 (COVID-19) RNA CHARO+probe Ql (Unsp spec) Not detected Not Detected [facility] Comment on above: Rapid NAAT: The specimen [...] management decisions. Fact sheet for Healthcare Providers: https://www.fda.gov/media/805935/download Fact sheet for Patients: https://www.fda.gov/media/265760/download Methodology: Isothermal Nucleic Acid Amplification Specimen Description .NASOPHARYNGEAL SWAB [facility] Catheterization and angiogra phy procedure details panelon 01-24-2022 [facility] Work Phone: POC Glucose Fingerstickon Glucose [Mass/Vol] 97 mg/dL 75 - 110 mg/dL [facility] CBC with Auto Differentialon 01-23-2022 Absolute Eos # 0.13 [facility] th Absolute Immature Granulocyte 0.03 [facility] Absolute Lymph # 1.03 Low [facility] alth Absolute Hopkins # 0.[address] [facility] lth Basophils (Bld) [#/Vol] 0.03 10*3/uL [facility] Basophils/100 WBC (Bld) 1 % 0 - 2 % [facility] Eosinophils/100 WBC (Bld) 2 % 1 - 4 % [facility] Hematocrit (Bld) [Volume fraction] 34.1 % Low 40.7 - 50.3 % [facility] Hemoglobin.gastrointesti nal spec 1 Ql (Stl) 11.3 g/dL Low 13.0 - 17.0 g/dL [facility] Immature granulocytes/100 WBC (Bld) 1 % High 0 [facility] Interpretation and review of laboratory results Abnormal [facility] Lymphocytes/100 WBC (Bld) 18 % Low 24 - 43 % [facility] MCH (RBC) [Entitic mass] 27.9 pg 25. 2 - 33.5 pg [facility] MCHC (RBC) [Mass/Vol] 33.1 g/dL 28.4 - 34.8 g/dL [facility] MCV (RBC) [Entitic vol] 84.2 fL 82.6 - 102.9 fL [facility] Monocytes/100 WBC (Bld) 15 % High 3 - 12 % [facility] NRBC Automated 0.0 0.0 per 100 WBC [facility] Platelet distribution width (Bld) [Ratio] 16.1 % High 11.8 - 14.4 % [facility] Platelet mean volume (Bld) [Entitic vol] 9.8 fL 8.1 - 13.5 fL [facility] Platelets (Bld) [#/Vol] 121 10*3/uL Low [facility] RBC (Bld) [#/Vol] 4.05 10*6/uL Low 4.21 - 5.7 7 m/uL [facility] RBC (Bld) [#/Vol] ANISOCYTOSIS PRESENT [facility] Segmented neutrophils/100 WBC (Bld) 63 % 36 - 65 % [facility] Segs Absolute 3.62 [facility] (Bld) [#/Vol] 5.7 10*3/uL [facility] Hepatic Function Panelon Albumin [Mass/Vol] 2.8 g/dL Low 3.5 - 5.2 g/dL [facility] Albumin/Globulin [Mass ratio] 0.6 {ratio} Low [facility] ALP (Bld) [Catalytic activity/Vol] 85 U/L 40 - 129 U/L [facility] ALT [Catalytic activity/Vol] 32 U/L 5 - 41 U/L [facility] AST [Catalytic activity/Vol] 29 U/L <40 [facility] Bilirubin [Mass/Vol] 0.29 mg/dL Low 0.3 - 1 .2 mg/dL [facility] Bilirubin, Indirect 0.2 mg/dL 0.00 - 1 .00 mg/dL [facility] Bilirubin.indirect [Mass/Vol] 0.09 mg/dL <0.31 [facility] Free PSA/Total PSA [Mass fraction] 7.4 g/dL 6.4 - 8.3 g/dL [facility] Interpretation and review of laboratory results Abnormal [facility] MRI ANKLE LEFT W WO [...] alignment of the joints. No joint effusion. [facility] RIS CONSOLIDATED Addy Turner MD [...] sprain of the intact anterior talofibular ligament. [facility] Work Phone: Radiology Study observation (narrative) [employer] Work Phone: MRI ANKLE LEFT W WO CONTRAST Ordered By: Addy Turner on 01-23-2022 [facility] Work Phone: POC Glucose Fingerstickon Glucose [Mass/Vol] 122 mg/dL High 75 - 110 mg/dL [facility] Interpretation and review of laboratory results Abnormal [employer] Glucose [Mass/Vol] 99 mg/dL 75 - 110 mg/dL [employer] Glucose [Mass/Vol] 141 mg/dL High 75 - 110 mg/dL [facility] Interpretation and review of laboratory results Abnormal [employer] Renal Function Panelon 01-23 Albumin [Mass/Vol] 2.8 g/dL Low 3.5 - 5.2 g/dL [facility] Anion gap [Moles/Vol] 13 mmol/L 9 - 17 mmol/L [facility] Calcium [Mass/Vol] 8.9 mg/dL 8.6 - 10. 4 mg/dL [facility] Chloride [Moles/Vol] 98 mmol/L 98 - 10 7 mmol/L [facility] CO2 [Moles/Vol] 21 mmol/L 20 - 31 mmol/L [facility] Creatinine [Mass/Vol] 0.68 mg/dL Low 0.70 - 1.20 mg/dL [facility] GFR >60 >60 mL/min [facility] GFR Non- >60 >60 mL/min [facility] GFR/1.73 sq M.predicted MDRD (S/P/Bld) [Vol rate/Area] [facility] Comment on above: Average GFR for 40-4 9 years old: 99 mL/min/1.73sq m Chronic Kidney Disease: <60 mL/min/1.73sq m Kidney failure: <15 mL/min/1.73sq m eGFR calculated using average adult body mass. Additional eGFR calculator available at: http://www.[employer]/multiple_crcl_2012.htm Glucose [Mass/Vol] 148 mg/dL High 70 - 99 mg/dL [facility] Interpretation and review of laboratory results Abnormal [facility] Phosphate [Mass/Vol] 2.7 mg/dL 2.5 - 4 .5 mg/dL [facility] [employer] Potassium [Moles/Vol] 4.2 mmol/L 3.7 - 5.3 mmol/L [facility] [employer] Sodium [Moles/Vol] 132 mmol/L Low 135 - 144 mmol/L [facility] Urea nitrogen (BldV) [Mass/Vol] 14 mg/dL 6 - 20 mg/dL [facility] Vancomycin Level, Randomon 0 01-23-2022 Vancomycin Rm <4.0 ug/mL [facility] Comment on above: Higher trough serum vancomycin concentrations of 15-20 ug/mL are recommended for complicated infections such as bacteremia, endocarditis, osteomyelitis, meningitis, and hospital acquired pneumonia. [facility] Hemoglobin A1Con 01-22-2022 Glucose [Mass/Vol] 114 mg/dL [facility] Comment on above: The ADA and AACC rec ommend providing the estimated average glucose result to permit better patient understanding of their HBA1c result. HbA1c (Bld) [Mass fraction] 5.6 % 4.0 - 6.0 % [facility] POC Glucose Fingerstickon Glucose [Mass/Vol] 95 mg/dL 75 - 110 mg/dL [facility] Glucose [Mass/Vol] 179 mg/dL High 75 - 110 mg/dL [facility] Interpretation and review of laboratory results Abnormal [facility] Glucose [Mass/Vol] 104 mg/dL 75 - 110 mg/dL [facility] Basic Metabolic Panel w/ Ref rebecca to MGon 01-21-2022 Anion gap [Moles/Vol] 14 mmol/L 9 - 17 mmol/L [facility] [employer] Calcium [Mass/Vol] 8.6 mg/dL 8.6 - 10. 4 mg/dL [facility] Chloride [Moles/Vol] 106 mmol/L 98 - 10 7 mmol/L [facility] CO2 [Moles/Vol] 20 mmol/L 20 - 31 mmol/L [facility] Creatinine [Mass/Vol] 0.73 mg/dL 0.70 - 1.20 mg/dL [facility] GFR >60 >60 mL/min [facility] GFR Non- >60 >60 mL/min [facility] GFR/1.73 sq M.predicted MDRD (S/P/Bld) [Vol rate/Area] [facility] Comment on above: Average GFR for 40-4 9 years old: 99 mL/min/1.73sq m Chronic Kidney Disease: <60 mL/min/1.73sq m Kidney failure: <15 mL/min/1.73sq m eGFR calculated using average adult body mass. Additional eGFR calculator available at: http://www.[employer]/multiple_crcl_2011.htm Glucose [Mass/Vol] 288 mg/dL High 70 - 99 mg/dL [facility] Interpretation and review of laboratory results Abnormal [facility] Potassium [Moles/Vol] 3.9 mmol/L 3.7 - 5.3 mmol/L [facility] Sodium [Moles/Vol] 140 mmol/L 135 - 144 mmol/L [facility] Urea nitrogen (BldV) [Mass/Vol] 17 mg/dL 6 - 20 mg/dL [facility] C-Reactive Proteinon 022 CRP [Mass/Vol] 51.6 mg/L High 0.0 - 5.0 mg/L [facility] Interpretation and review of laboratory results Abnormal [facility] Lactic Acidon 01-21-2022 Interpretation and review of laboratory results Abnormal [facility] Lactic Acid, Whole Blood 3.3 mmol/L High 0.7 - 2.1 mmol/L [facility] POC Glucose Fingerstickon Glucose [Mass/Vol] 129 mg/dL High 75 - 110 mg/dL [facility] Interpretation and review of laboratory results Abnormal [facility] Procalcitoninon 01-21-2022 Interpretation and review of laboratory results Abnormal [facility] Procalcitonin 11.47 ng/mL High <0.09 [facility] [...] entered into the Change in Procalcitonin Calculator (www.rwclvx-lch-wfpyzutiao.[employer]) to determine the patient's Mortality Risk Prognosis In healthy neonates, plasma Procalcitonin (PCT) concentrations increase gradually after , reaching peak values at about 24 hours of age then decrease to normal values below 0.5 ng/mL by 48-72 hours of age. [facility] Protime-INRon 01-21-2022 INR Coag (Bld) [Relative time] 1.0 {INR} [facility] Comment on above: Therapeutic Range: Moderate Anticoagulant Intensity: INR = 2.0-3.0 High Anticoagulant Intensity: INR = 2.5-3.5 PT Coag (PPP) [Time] 11 s [facility] Sedimentation Rateon 022 Interpretation and review of laboratory results Abnormal [facility] Sed Rate 58 mm High 0 - 15 mm [facility] XR CALCANEUS LEFT (MIN 2 VIE WS)on 01-21-2022 1. Soft tissue swelling along the heel of the left foot. No evidence of osteomyelitis. [facility] EXAMINATION: 3 XRAY VIEWS OF THE LEFT CALCANEUS 01/21/2022 5:51 am COMPARISON: 01/10/2022 HISTORY: ORDERING SYSTEM PROVIDED HISTORY: Wound TECHNOLOGIST PROVIDED HISTORY: Wound Reason for Exam: pain FINDINGS: There are areas of edema noted along the left heel. There is no bone erosion or periosteal reaction. No fracture. No retained radiopaque foreign body. [facility] Jefe Bassett MD - [...] the left foot. No evidence of osteomyelitis. [facility] [employer] Work Phone: Radiology Study observation (narrative) [facility] Work Phone: XR CALCANEUS LEFT (MIN 2 VIE WS)Ordered By: Jefe Bassett on 01-21-2022 [facility] Work Phone: Brain Natri. Peptideon 01-20 Natriuretic peptide B (Bld) [Mass/Vol] 93 pg/mL Normal <300 [facility] Comment on above: Result Comment: An age-independent cutoff point of 300 pg/ml has a 98% negative predictive value excluding acute heart failure. Performed By: #### C P, CDP #### [facility] [address] [place] [address] [place] [address] Bearing Grinder: Joelle Parker MD CBC with Diffon 01-20-2022 Abs. Basophil 0.00 k/uL Normal 0.0-0.2 [facility] Comment on above: Performed By: #### C P, CDP #### [facility] [address] [place] [address] [place] [address] Bearing Grinder: Joelle Parker MD Abs.Imm.Granulocyte 0.00 k/uL Normal 0.00-0.30 [facility] Comment on above: Performed By: #### C P, CDP #### [address] [place] [address] Bearing Grinder: Joelle Parker MD Abs.Neutrophil (Seg) 9.64 k/uL High 1.50-8.10 [facility] Comment on above: Performed By: #### C P, CDP #### [facility] [address] [place], [place] [id number] Bearing Grinder: Joelle Parker MD Basophils/100 WBC (Bld) 0 % Normal 0-2 [facility] Comment on above: Performed By: #### C P, CDP #### [facility] [address] [place], [facility] Bearing Grinder: Joelle Parker MD Eosinophils (Bld) [#/Vol] 0.21 10*3/uL Normal 0.00-0.44 [facility] Comment on above: Performed By: #### C P, CDP #### [facility] [address] [place], [facility] Bearing Grinder: Joelle Parker MD Eosinophils/100 WBC (Bld) 2 % Normal 1-4 [facility] Comment on above: Performed By: #### C P, CDP #### [facility] [address] [place] [address] Dr[address] [place], [facility] Bearing Grinder: Joelle Parker MD Immature granulocytes/100 WBC (Bld) 0 % Normal 0 [facility] Comment on above: Performed By: #### C P, CDP #### [address] [place], [facility]83 Bearing Grinder: Joelle Parker MD Lymphocytes (Bld) [#/Vol] 0.64 10*3/uL Low 1.10-3.70 [facility] Comment on above: Performed By: #### C P, CDP #### [facility] [address] [place], [facility]83 Bearing Grinder: Joelle Parker MD Lymphocytes/100 WBC (Bld) 6 % Low 24-43 [facility] Comment on above: Performed By: #### C P, CDP #### [facility] [address] [place], [facility]83 Bearing Grinder: Joelle Parker MD Monocytes (Bld) [#/Vol] 0.11 10*3/uL Normal 0.10-1.20 [facility] Comment on above: Performed By: #### C P, CDP #### [facility] [address] [place] [address] Dr. [place], [place] [id number] Bearing Grinder: Joelle Parker MD Monocytes/100 WBC (Bld) 1 % Low 3-12 [facility] Comment on above: Performed By: #### C P, CDP #### [address] [place] [address] Bearing Grinder: Joelle Parker MD Morphology Adis (Bld) [Interp] ANISOCYTOSIS Normal [facility] Comment on above: Result Comment: PRES ENT Performed By: #### C P, CDP #### [address] [place], [facility]83 Bearing Grinder: Joelle Parker MD Neutrophil (Seg) 91 % High 36-65 [facility] Comment on above: Performed By: #### C P, CDP #### [address] [place] [address] Bearing Grinder: Joelle Parker MD Erythrocyte distribution width (RBC) [Ratio] 16.4 % High 11.8-14.4 [facility] Comment on above: Performed By: #### C P, CDP #### [address] [place] [address] Bearing Grinder: Joelle Parker MD Hematocrit (Bld) [Volume fraction] 35.3 % Low 40.7-50.3 [facility] Comment on above: Performed By: #### C P, CDP #### [address] [place], [place] [id number] Bearing Grinder: Joelle Parker MD Hemoglobin (Bld) [Mass/Vol] 11.1 g/dL Low 13.0-17.0 [facility] Comment on above: Performed By: #### C P, CDP #### [facility] [address] [place] [address] Bearing Grinder: Joelle Parker MD MCH (RBC) [Entitic mass] 27.5 pg Normal 25.2-33.5 [facility] Comment on above: Performed By: #### C P, CDP #### [address] [place], [facility]83 Bearing Grinder: Joelle Parker MD MCHC (RBC) [Mass/Vol] 31.4 g/dL Normal 28.4-34.8 [facility] Comment on above: Performed By: #### C P, CDP #### [address] [place], [place] [id number] Bearing Grinder: Jolele Parker MD MCV (RBC) [Entitic vol] 87.6 fL Normal 82.6-102.9 [facility] Comment on above: Performed By: #### C P, CDP #### [address] [place], [place] [id number] Bearing Grinder: Joelle Parker MD NRBC Automated 0.0 per 100 WBC Normal 0.0 [facility] Comment on above: Performed By: #### C P, CDP #### [address] [place], [place] [address] Bearing Grinder: Joelle Parker MD Platelet mean volume (Bld) [Entitic vol] 8.7 fL Normal 8.1-13.5 [facility] Comment on above: Performed By: #### C P, CDP #### [address] [place] [address] Bearing Grinder: Joelle Parker MD Platelets (Bld) [#/Vol] 130 10*3/uL Low 138-453 [facility] Comment on above: Performed By: #### C P, CDP #### [address] [place], [place] [id number] Bearing Grinder: Joelle Parker MD RBC (Bld) [#/Vol] 4.03 10*6/uL Low 4.21-5.77 [facility] Comment on above: Performed By: #### C P, CDP #### [facility] [address] [place], [place] [id number] Bearing Grinder: Joelle Parker MD WBC (Bld) [#/Vol] 10.6 10*3/uL Normal 3.5-11.3 [facility] Comment on above: Performed By: #### C P, CDP #### [facility] [address] [place], [place] [id number] Bearing Grinder: Joelle Parker MD CT CHEST PULMONARY EMBOLISM [...] Amilcar Fang MD 01/20/22 Final result Normal [facility] Comp Metabolic Pr/rfx MGon 0 01-20-2022 (cont.) Normal [facility] Comment on above: Result Comment: Aver age GFR for 40-49 years old: 99 mL/min/1.73sq m Chronic Kidney Disease: <60 mL/min/1.73sq m Kidney failure: <15 mL/min/1.73sq m eGFR calculated using average adult body mass. Additional eGFR calculator available at: http://www.[employer]/multiple_crcl_2012.htm Performed By: #### C P, CDP #### [facility] [address] [place] [address] [place] [address] Bearing Grinder: Joelle Parker MD Albumin [Mass/Vol] 3.3 g/dL Low 3.5-5.2 [facility] Comment on above: Performed By: #### C P, CDP #### [address] [place] [address] Bearing Grinder: Joelle Parker MD Albumin/Glob Ratio 0.7 Low 1.0-2.5 [facility] Comment on above: Performed By: #### C P, CDP #### [facility] [address] [place] [address] Bearing Grinder: Joelle Parker MD Alkaline Phos 113 U/L Normal 40-129 [facility] Comment on above: Performed By: #### C P, CDP #### [facility] [address] [place] [address] Bearing Grinder: Joelle Parker MD ALT [Catalytic activity/Vol] 21 U/L Normal 5-41 [facility] Comment on above: Performed By: #### C P, CDP #### [facility] [address] [place], [place] [id number] Bearing Grinder: Joelle Parker MD Anion gap [Moles/Vol] 7 mmol/L Low 9-17 [facility] Comment on above: Performed By: #### C P, CDP #### [facility] [address] [place], [place] [id number] Bearing Grinder: Joelle Parker MD AST [Catalytic activity/Vol] 18 U/L Normal <40 [facility] Comment on above: Performed By: #### C P, CDP #### [facility] [address] [place], [place] [id number] Bearing Grinder: Joelle Parker MD Bilirubin [Mass/Vol] 0.55 mg/dL Normal 0.3-1.2 [facility] Comment on above: Performed By: #### C P, CDP #### [facility] [address] [place], [place] [id number] Bearing Grinder: Joelle Parker MD BUN/CRE Ratio 24 High 9-20 [facility] Comment on above: Performed By: #### C P, CDP #### [facility] [address] [place], [place] [id number] Bearing Grinder: Joelle Parker MD Calcium [Mass/Vol] 9.1 mg/dL Normal 8.6-10.4 [facility] Comment on above: Performed By: #### C P, CDP #### [facility] [address] [place], [place] [id number] Bearing Grinder: Joelle Parker MD Chloride [Moles/Vol] 99 mmol/L Normal 98-107 [facility] Comment on above: Performed By: #### C P, CDP #### [facility] [address] [place], [place] [id number] Bearing Grinder: Joelle Parker MD CO2 [Moles/Vol] 27 mmol/L Normal 20-31 [facility] Comment on above: Performed By: #### C P, CDP #### [facility] [address] [place] [address] Bearing Grinder: Joelle Parker MD Creatinine [Mass/Vol] 0.70 mg/dL Normal 0.70-1.20 [facility] Comment on above: Performed By: #### C P, CDP #### [facility] [address] [place], [place] [id number] Bearing Grinder: Joelle Parker MD GFR, Amer >60 Normal >60 [facility] Comment on above: Performed By: #### C P, CDP #### [facility] [address] [place], [place] [id number] Bearing Grinder: Joelle Parker MD GFR,non Amer >60 Normal >60 [facility] Comment on above: Performed By: #### C P, CDP #### [facility] [address] [place] [address] Dr. [place], [place] [id number] Bearing Grinder: Joelle Parker MD Glucose [Mass/Vol] 104 mg/dL High 70-99 [facility] Comment on above: Performed By: #### C P, CDP #### [facility] [address] [place], [place] [id number] Bearing Grinder: Joelle Parker MD Potassium [Moles/Vol] 4.3 mmol/L Normal 3.7-5.3 [facility] Comment on above: Performed By: #### C P, CDP #### [facility] [address] [place], [place] [id number] Bearing Grinder: Joelle Parker MD Protein [Mass/Vol] 8.3 g/dL Normal 6.4-8.3 [facility] Comment on above: Performed By: #### C P, CDP #### [facility] [address] [place] [address] [place] [address] Bearing Grinder: Joelle Parker MD Sodium [Moles/Vol] 133 mmol/L Low 135-144 [facility] Comment on above: Performed By: #### C P, CDP #### [facility] [address] [place] [address] Dr. [place], [place] [id number] Bearing Grinder: Joelle Parker MD Staging: Normal [facility] Comment on above: Result Comment: Stag e 1: Some kidney damage normal GFR Stage 2: Mild kidney damage GFR 60-89 Stage 3: Moderate kidney damage GFR 30-59 Stage 4: Severe kidney damage GFR 15-29 Stage 5: Severe kidney damage GFR <15 ESRD - chronic treatment by dialysis or transplant Performed By: #### C P, CDP #### [address] [place], [place] [id number] Bearing Grinder: Joelle Parker MD Urea nitrogen [Mass/Vol] 17 mg/dL Normal 6-20 [facility] Comment on above: Performed By: #### C P, CDP #### [address] [place] [address] Bearing Grinder: Joelle Parker MD D-Dimer Teston 01-20-2022 D-Dimer Test 2.69 mg/L FEU High 0.00-0.59 [facility] Comment on above: Result Comment: When combined [...] DVT. Performed By: #### D YFN #### [facility] [address] [place] [address] Bearing Grinder: Joelle Parker MD Flu A/B Ag Detectionon 01-20 Flu A/B Ag Detection Specimen Descriptio n .NASOPHARYNGEAL SWAB Direct Exam NEGATIVE for Influenza A + B antigens. PCR testing to confirm this result is available upon request. Specimen will be saved in the laboratory for 7 days. Please call [phone] if PCR testing is indicated. Report Status FINAL 01/20/2022 Normal [facility] Comment on above: Performed By: #### C P, CDP #### [facility] [address] [place] [address] Bearing Grinder: Joelle Parker MD LACTIC ACID, WHOLE BLOODon 0 01-20-2022 Interpretation and review of laboratory results Abnormal [facility] Lactic Acid, Whole Blood 2.5 mmol/L High 0.7 - 2.1 mmol/L [facility] Laboratory - Chemistry and C hemistry - challengeon 01-20-2022 Hemoglobin.gastrointesti nal spec 1 Ql (Stl) 11.1 g/dL Low 13.0 - 17.0 g/dL [facility] Albumin [Mass/Vol] 3.3 g/dL Low 3.5 - 5.2 g/dL [facility] Albumin/Globulin [Mass ratio] 0.7 {ratio} Low [facility] ALP (Bld) [Catalytic activity/Vol] 113 U/L 40 - 129 U/L [facility] ALT [Catalytic activity/Vol] 21 U/L 5 - 41 U/L [facility] Anion gap [Moles/Vol] 7 mmol/L Low 9 - 17 mmol/L [facility] AST [Catalytic activity/Vol] 18 U/L <40 [facility] Bilirubin [Mass/Vol] 0.55 mg/dL 0.3 - 1 .2 mg/dL [facility] [employer] Calcium [Mass/Vol] 9.1 mg/dL 8.6 - 10. 4 mg/dL [facility] [employer] Chloride [Moles/Vol] 99 mmol/L 98 - 10 7 mmol/L [facility] [employer] CO2 [Moles/Vol] 27 mmol/L 20 - 31 mmol/L [facility] [employer] Creatinine [Mass/Vol] 0.7 mg/dL 0.70 - 1.20 mg/dL [facility] [employer] Free PSA/Total PSA [Mass fraction] 8.3 g/dL 6.4 - 8.3 g/dL [facility] GFR/1.73 sq M.predicted MDRD (S/P/Bld) [Vol rate/Area] [facility] Comment on above: Average GFR for 40-4 9 years old: 99 mL/min/1.73sq m Chronic Kidney Disease: <60 mL/min/1.73sq m Kidney failure: <15 mL/min/1.73sq m eGFR calculated using average adult body mass. Additional eGFR calculator available at: http://www.[employer]/multiple_crcl_2012.htm Stage 1: Some kidney damage normal GFR Stage 2: Mild kidney damage GFR 60-89 Stage 3: Moderate kidney damage GFR 30-59 Stage 4: Severe kidney damage GFR 15-29 Stage 5: Severe kidney damage GFR <15 ESRD - chronic treatment by dialysis or transplant Glucose [Mass/Vol] 104 mg/dL High 70 - 99 mg/dL [facility] Natriuretic peptide B (Bld) [Mass/Vol] 93 pg/mL <300 [facility] Comment on above: An age-independent cutoff point of 300 pg/ml has a 98% negative predictive value excluding acute heart failure. Potassium [Moles/Vol] 4.3 mmol/L 3.7 - 5.3 mmol/L [facility] Sodium [Moles/Vol] 133 mmol/L Low 135 - 144 mmol/L [facility] Urea nitrogen (BldV) [Mass/Vol] 17 mg/dL 6 - 20 mg/dL [facility] Urea nitrogen/Creatinine (Bld) [Mass ratio] 24 High [facility] Ketones Ql (U) Negative NEGATIVE [facility] th Laboratory - Hematology and Cell countson 01-20-2022 Basophils (Bld) [#/Vol] 0.00 10*3/uL [facility] Basophils/100 WBC (Bld) 0 % 0 - 2 % [facility] Eosinophils/100 WBC (Bld) 2 % 1 - 4 % [facility] Hematocrit (Bld) [Volume fraction] 35.3 % Low 40.7 - 50.3 % [facility] Immature granulocytes/100 WBC (Bld) 0 % 0 [facility] Lymphocytes/100 WBC (Bld) 6 % Low 24 - 43 % [facility] MCH (RBC) [Entitic mass] 27.5 pg 25. 2 - 33.5 pg [facility] MCHC (RBC) [Mass/Vol] 31.4 g/dL 28.4 - 34.8 g/dL [facility] MCV (RBC) [Entitic vol] 87.6 fL 82.6 - 102.9 fL [facility] Monocytes/100 WBC (Bld) 1 % Low 3 - 12 % [facility] Morphology Adis (Bld) [Interp] ANISOCYTOSIS PRESENT [facility] Platelet distribution width (Bld) [Ratio] 16.4 % High 11.8 - 14.4 % [facility] Platelet mean volume (Bld) [Entitic vol] 8.7 fL 8.1 - 13.5 fL [facility] Platelets (Bld) [#/Vol] 130 10*3/uL Low [facility] RBC (Bld) [#/Vol] 4.03 10*6/uL Low 4.21 - 5.7 7 m/uL [facility] Segmented neutrophils/100 WBC (Bld) 91 % High 36 - 65 % [facility] WBC (Bld) [#/Vol] 10.6 10*3/uL [facility] Laboratory - Microbiology an d Antimicrobial susceptibilityon 01-20-2022 SARS-CoV-2 (COVID-19) RNA CHARO+probe Ql (Unsp spec) Not detected Not Detected [facility] Comment on above: Rapid NAAT: The specimen [...] management decisions. Fact sheet for Healthcare Providers: https://www.fda.gov/media/345767/download Fact sheet for Patients: https://www.fda.gov/media/190442/download Methodology: Isothermal Nucleic Acid Amplification Laboratory - Urinalysison Leukocyte esterase Test strip Ql (U) Negative NEGATIVE [facility] Lactate, Sepsison 01-20-2022 Lactic Acid, Sepsis 2.6 mmol/L High 0.5-1.9 [facility] Comment on above: Performed By: #### C P, CDP #### [address] [place] [address] Bearing Grinder: Joelle Parker MD Lactic Acid, Sepsis 1.7 mmol/L Normal 0.5-1.9 [facility] Comment on above: Performed By: #### A LCB #### [address] [place] [address] Bearing Grinder: Joelle Parker MD Lactic Acid, Sepsis 1.3 mmol/L Normal 0.5-1.9 [facility] Comment on above: Performed By: #### C P, CDP #### [address] [place] [id number] Bearing Grinder: Joelle Parker MD Lactic Acid, Sepsis 1.9 mmol/L Normal 0.5-1.9 [facility] Comment on above: Performed By: #### C P, CDP #### [address] [place] [address] Bearing Grinder: Joelle Parker MD No Panel Informationon 01-20 Interpretation and review of laboratory results Abnormal [facility] Lactic Acid, Sepsis 2.6 mmol/L High 0.5 - 1. 9 mmol/L [facility] No evidence of pulmonary embolism or acute thoracic aortic abnormality. Improving aeration. Scattered airspace opacities are present throughout the lungs bilaterally to a mild degree, overall improved from prior, possibly representing residual pneumonia. [facility] CON[facility] EXAMINATION: CTA OF THE [...] Abdomen: The visualized upper abdomen is unremarkable. [facility] Amilcar Fang MD - [...] improved from prior, possibly representing residual pneumonia. [employer] Work Phone: Radiology Study observation (narrative) [employer] [facility] Work Phone: D-Dimer, Quant 2.69 High [facility] Comment on above: When combined with [...] Interpretation and review of laboratory results Abnormal [facility] Poor data quality, interpretation may be adversely affected Sinus tachycardia Otherwise normal ECG When compared with ECG of 10-JAN-2022 20:20, No significant change was found Confirmed by Valery Canela MD ([id number]) on 01/20/2022 6:02:54 PM [facility] RADIOLOGY Valery Canela MD - 01/20/2022 Poor data quality, interpretation may be adversely affected Sinus tachycardia Otherwise normal ECG When compared with ECG of 10-JAN-2022 20:20, No significant change was found Confirmed by Valery Canela MD ([id number]) on 01/20/2022 6:02:54 PM [facility] Work Phone: Lactic Acid, Sepsis 1.7 mmol/L 0.5 - 1. 9 mmol/L [facility] Lactic Acid, Sepsis 1.3 mmol/L 0.5 - 1. 9 mmol/L [facility] Absolute Eos # 0.21 [facility] th Absolute Immature Granulocyte 0.00 [facility] Absolute Lymph # 0.64 Low [facility] alth Absolute Hopkins # 0.11 [facility] Interpretation and review of laboratory results Abnormal [facility] NRBC Automated 0.0 0.0 per 100 WBC [facility] Segs Absolute 9.64 High [facility] GFR >60 >60 mL/min [facility] GFR Non- >60 >60 mL/min [facility] Interpretation and review of laboratory results Abnormal [facility] Troponin, High Sensitivity <6 0 - 22 ng/L [facility] Comment on above: High Sensitivity Troponin values cannot be compared with other Troponin methodologies. Patients with high levels of Biotin oral intake (i.e >5mg/day) may have falsely decreased Troponin levels. Samples collected within 8 hours of biotin intake may require additional information for diagnosis. [facility] - [facility] Bacteria, UA 1+ Abnormal None [facility] [employer] Epithelial Cells UA 0 TO 2 [facility] Interpretation and review of laboratory results Abnormal [facility] Mucus, UA 1+ Abnormal None [facility] RBC, UA 50 TO 100 [facility] WBC, UA None [facility] Bilirubin Urine Negative NEGATIVE [facility] Color, UA Yellow Yellow [facility] Glucose, Ur Negative NEGATIVE [facility] Interpretation and review of laboratory results Abnormal [facility] Nitrite, Urine Negative NEGATIVE [facility] th pH, UA 7.5 [facility] Protein, UA Negative NEGATIVE [facility] Specific [place], UA 1.025 High [facility] Turbidity UA Clear Clear [facility] Urine Hgb 3+ Abnormal NEGATIVE [facility] Urobilinogen, Urine Normal Normal [facility] Lactic Acid, Sepsis 1.9 mmol/L 0.5 - 1. 9 mmol/L [facility] Direct Exam NEGATIVE for Influenza A + B antigens. PCR testing to confirm this result is available upon request. Specimen will be saved in the laboratory for 7 days. Please call [phone] if PCR testing is indicated. [facility] Specimen Description .NASOPHARYNGEAL SWAB [facility] Specimen Description .NASOPHARYNGEAL SWAB [facility] Diffuse interstitial opacities may represent mild edema or atypical infection. [facility] RIS CONSOLIDATED EXAMINATION: ONE XRAY [...] pneumothorax identified. Osseous structures are grossly unchanged. [facility] Miky Campbell DO [...] may represent mild edema or atypical infection. [employer] Work Phone: Radiology Study observation (narrative) [employer] Work Phone: No Panel InformationOrdered By: Amilcar Fang on 01-20-2022 [employer] Phone: No Panel InformationOrdered By: Valery Canela on 01-20-2022 Atrial Rate 133 BPM [employer] Work Phone: P [place] 54 degrees [employer] Work Phone: P-R Interval 122 ms [employer] Work Phone: Q-T Interval 288 ms [employer] Work Phone: QRS Duration 76 ms [employer] Work Phone: QTc Calculation (Bazett) 428 ms [employer] Work Phone: R [place] 78 degrees [employer] Work Phone: T [place] 61 degrees [employer] Work Phone: Ventricular Rate 133 BPM [employer] Work Phone: [employer] Work Phone: No Panel InformationOrdered By: Miky Campbell on 01-20-2022 [employer] Phone: [id number] 01-20-2022 SARS-CoV-2 (COVID-19) RNA CHARO+probe Ql (Unsp spec) Not detected Normal [facility] Comment on above: Result Comment: [...] management decisions. Fact sheet for Healthcare Providers: https://www.fda.gov/media/814881/download Fact sheet for Patients: https://www.fda.gov/media/934775/download Methodology: Isothermal Nucleic Acid Amplification Performed By: #### C OVRB #### [facility] [address] [place] [address] [place] [address] Bearing Grinder: Joelle Parker MD Troponinon 01-20-2022 Troponin, High Sens <6 Normal 0-22 [facility] Comment on above: Result Comment: High Sensitivity Troponin values cannot be compared with other Troponin methodologies. Patients with high levels of Biotin oral intake (i.e >5mg/day) may have falsely decreased Troponin levels. Samples collected within 8 hours of biotin intake may require additional information for diagnosis. Performed By: #### C P, CDP #### [facility] [address] [place] [address] Dr. [place], [place] [id number] Bearing Grinder: Joelle Parker MD Urinalysis, Routineon 2021 Bilirubin, SemiQt,Ur Negative Normal NEG [facility] Comment on above: Performed By: #### C P, CDP #### [address] [place], [place] [id number] Bearing Grinder: Joelle Parker MD Blood, Urine 3+ Abnormal NEG [facility] Comment on above: Performed By: #### C P, CDP #### [facility] [address] [place] [address] [place] [address] Bearing Grinder: Joelle Parker MD Clarity (U) Clear Normal CLEAR [facility] Comment on above: Performed By: #### C P, CDP #### [address] [place] [address] Bearing Grinder: Joelle Parker MD Color (U) Yellow Normal YEL [facility] Comment on above: Performed By: #### C P, CDP #### [facility] [address] [place] [address] [place] [address] Bearing Grinder: Joelle Parker MD Glucose Ql (U) Negative Normal NEG [facility] in Hospital Comment on above: Performed By: #### C P, CDP #### [address] [place], [facility]83 Bearing Grinder: Joelle Parker MD Ketones Ql (U) Negative Normal NEG [facility] in Hospital Comment on above: Performed By: #### C P, CDP #### [address] [place], [place] [address] Bearing Grinder: Joelle Parker MD Leukocyte esterase Test strip Ql (U) Negative Normal NEG [facility] Comment on above: Performed By: #### C P, CDP #### [address] [place], [place] [address] Bearing Grinder: Joelle Parker MD Nitrite,Ur Negative Normal [facility] Comment on above: Performed By: #### C P, CDP #### [address] [place], [facility]83 Bearing Grinder: Joelle Parker MD PH,Ur 7.5 Normal 5.0-9.0 [facility] Comment on above: Performed By: #### C P, CDP #### [address] [place], [facility]83 Bearing Grinder: Joelle Parker MD Protein Ql (U) Negative Normal NEG [facility] in Hospital Comment on above: Performed By: #### C P, CDP #### [address] [place], [facility]83 Bearing Grinder: Joelle Parker MD Spec. [place],Ur 1.025 High 1.010-1.020 [facility] Comment on above: Performed By: #### C P, CDP #### [facility] [facility] [address] [place], [place] [id number] Bearing Grinder: Joelle Parker MD Urobilinogen,Ur Normal Normal NORM [facility] Comment on above: Performed By: #### C P, CDP #### [facility] [address] [place], [facility] Bearing Grinder: Joelle Parker MD Urinalysis,Microon 2 ----- Normal [facility] Comment on above: Performed By: #### C P, CDP #### [facility] [address] [place], [facility] Bearing Grinder: Joelle Parker MD Bacteria 1+ Abnormal NONE [facility] Comment on above: Performed By: #### C P, CDP #### [facility] [address] [place], [facility]83 Bearing Grinder: Joelle Parker MD Epithelial cells LM Ql (Urine sed) 0 TO 2 Normal 0-5 [facility] Comment on above: Performed By: #### C P, CDP #### [facility] [address] [place], [facility]83 Bearing Grinder: Joelle Parker MD Mucus Strands 1+ Abnormal NONE [facility] Comment on above: Performed By: #### C P, CDP #### [facility] [address] [place], [facility]83 Bearing Grinder: Joelle Parker MD Urine RBC's 50 TO 100 Normal 0-2 [facility] Comment on above: Performed By: #### C P, CDP #### [facility] [address] [place] [address] Bearing Grinder: Joelle Parker MD Urine WBC's None Normal 0-5 [facility] Comment on above: Performed By: #### C P, CDP #### [facility] [address] [place] [address] Bearing Grinder: Joelle Parker MD XR CHEST PORTABLEon 01-21-20 [...] Miky Campbell DO 01/20/22 Final result Normal [facility] Acetaminophenon 01-10-2022 Acetaminophen [Mass/Vol] ug/mL Low 10-30 [facility] Comment on above: Performed By: #### A LCB #### [facility] [address] [place], [place] [id number] Bearing Grinder: Joelle Parker MD Acetaminophen Levelon 2021 Acetaminophen Level <5 Low 10 - 30 ug/mL [facility] Interpretation and review of laboratory results Abnormal [facility] CBC with Auto Differentialon 01-10-2022 Absolute Eos # 0.19 [facility] th Absolute Immature Granulocyte 0.09 [facility] Absolute Lymph # 0.97 Low [facility] alth Absolute [facility] # 0.66 [facility] Basophils (Bld) [#/Vol] 0.03 10*3/uL [facility] Basophils/100 WBC (Bld) 0 % 0 - 2 % [facility] Eosinophils/100 WBC (Bld) 2 % 1 - 4 % [facility] Hematocrit (Bld) [Volume fraction] 28.4 % Low 40.7 - 50.3 % [facility] Hemoglobin.gastrointesti nal spec 1 Ql (Stl) 8.8 g/dL Low 13.0 - 17.0 g/dL [facility] Immature granulocytes/100 WBC (Bld) 1 % High 0 [facility] Interpretation and review of laboratory results Abnormal [facility] Lymphocytes/100 WBC (Bld) 11 % Low 24 - 43 % [facility] MCH (RBC) [Entitic mass] 27.7 pg 25. 2 - 33.5 pg [facility] MCHC (RBC) [Mass/Vol] 31.0 g/dL 28.4 - 34.8 g/dL [facility] MCV (RBC) [Entitic vol] 89.3 fL 82.6 - 102.9 fL [facility] Monocytes/100 WBC (Bld) 8 % 3 - 12 % M [facility] NRBC Automated 0.0 0.0 per 100 WBC [facility] Platelet distribution width (Bld) [Ratio] 14.3 % 11.8 - 14.4 % [facility] Platelet mean volume (Bld) [Entitic vol] 9.5 fL 8.1 - 13.5 fL [facility] Platelets (Bld) [#/Vol] 305 10*3/uL [facility] RBC (Bld) [#/Vol] 3.18 10*6/uL Low 4.21 - 5.7 7 m/uL [facility] Segmented neutrophils/100 WBC (Bld) 78 % High 36 - 65 % [facility] Segs Absolute 6.79 [facility] h WBC (Bld) [#/Vol] 8.7 10*3/uL [facility] CBC with Diffon 01-10-2022 Abs. Basophil 0.03 k/uL Normal 0.00-0.20 [facility] Comment on above: Performed By: #### A LCB #### [facility] [address] [place] [address] [place] [address] Bearing Grinder: Joelle Parker MD Abs.Imm.Granulocyte 0.09 k/uL Normal 0.00-0.30 [facility] Comment on above: Performed By: #### A LCB #### [facility] [address] [place] [address] Bearing Grinder: Joelle Parker MD Abs.Neutrophil (Seg) 6.79 k/uL Normal 1.50-8.10 [facility] Comment on above: Performed By: #### A LCB #### [facility] [address] [place] [id number] Bearing Grinder: Joelle Parker MD Basophils/100 WBC (Bld) 0 % Normal 0-2 [facility] Comment on above: Performed By: #### A LCB #### [facility] [address] [place], [place] [id number] Bearing Grinder: Joelle Parker MD Eosinophils (Bld) [#/Vol] 0.19 10*3/uL Normal 0.00-0.44 [facility] Comment on above: Performed By: #### A LCB #### [facility] [address] [place] [id number] Bearing Grinder: Joelle Parker MD Eosinophils/100 WBC (Bld) 2 % Normal 1-4 [facility] Comment on above: Performed By: #### A LCB #### [address] [place], [place] [address] Bearing Grinder: Joelle Parker MD Erythrocyte distribution width (RBC) [Ratio] 14.3 % Normal 11.8-14.4 [facility] Comment on above: Performed By: #### A LCB #### [address] [place], [place] [address] Bearing Grinder: Joelle Parker MD Hematocrit (Bld) [Volume fraction] 28.4 % Low 40.7-50.3 [facility] Comment on above: Performed By: #### A LCB #### [address] [place], [place] [id number] Bearing Grinder: Joelle Parker MD Hemoglobin (Bld) [Mass/Vol] 8.8 g/dL Low 13.0-17.0 [facility] Comment on above: Performed By: #### A LCB #### [address] [place] [address] Bearing Grinder: Joelle Parker MD Immature granulocytes/100 WBC (Bld) 1 % High 0 [facility] Comment on above: Performed By: #### A LCB #### [facility] [address] [place] [address] Bearing Grinder: Joelle Parker MD Lymphocytes (Bld) [#/Vol] 0.97 10*3/uL Low 1.10-3.70 [facility] Comment on above: Performed By: #### A LCB #### [facility] [address] [place] [address] Bearing Grinder: Joelle Parker MD Lymphocytes/100 WBC (Bld) 11 % Low 24-43 [facility] Comment on above: Performed By: #### A LCB #### [facility] [address] [place] [address] Bearing Grinder: Joelle Parker MD MCH (RBC) [Entitic mass] 27.7 pg Normal 25.2-33.5 [facility] Comment on above: Performed By: #### A LCB #### [address] [place] [address] Bearing Grinder: Joelle Parker MD MCHC (RBC) [Mass/Vol] 31.0 g/dL Normal 28.4-34.8 [facility] Comment on above: Performed By: #### A LCB #### [address] [place], [place] [id number] Bearing Grinder: Joelle Parker MD MCV (RBC) [Entitic vol] 89.3 fL Normal 82.6-102.9 [facility] Comment on above: Performed By: #### A LCB #### [address] [place] [address] Bearing Grinder: Joelle Parker MD Monocytes (Bld) [#/Vol] 0.66 10*3/uL Normal 0.10-1.20 [facility] Comment on above: Performed By: #### A LCB #### [facility] [address] [place], [place] [id number] Bearing Grinder: Joelle Parker MD Monocytes/100 WBC (Bld) 8 % Normal 3-12 [facility] Comment on above: Performed By: #### A LCB #### [facility] [address] [place], [place] [id number] Bearing Grinder: Joelle Parker MD Neutrophil (Seg) 78 % High 36-65 [facility] Comment on above: Performed By: #### A LCB #### [address] [place], [place] [id number] Bearing Grinder: Joelle Parker MD NRBC Automated 0.0 per 100 WBC Normal 0.0 [facility] Comment on above: Performed By: #### A LCB #### [address] [place], [facility]83 Bearing Grinder: Joelle Parker MD Platelet mean volume (Bld) [Entitic vol] 9.5 fL Normal 8.1-13.5 [facility] Comment on above: Performed By: #### A LCB #### [address] [place], [place] [id number] Bearing Grinder: Joelle Parker MD Platelets (Bld) [#/Vol] 305 10*3/uL Normal 138-453 [facility] Comment on above: Performed By: #### A LCB #### [facility] [address] [place] [address] [place], [place] [id number] Bearing Grinder: Joelle Parker MD RBC (Bld) [#/Vol] 3.18 10*6/uL Low 4.21-5.77 [facility] Comment on above: Performed By: #### A LCB #### [address] [place] [address] Bearing Grinder: Joelle Parkre MD WBC (Bld) [#/Vol] 8.7 10*3/uL Normal 3.5-11.3 [facility] Comment on above: Performed By: #### A LCB #### [facility] [address] [place] [address] Bearing Grinder: Joelle Parker MD Comp Metabolic Profon 2021 (cont.) Normal [facility] Comment on above: Result Comment: Aver age GFR for 40-49 years old: 99 mL/min/1.73sq m Chronic Kidney Disease: <60 mL/min/1.73sq m Kidney failure: <15 mL/min/1.73sq m eGFR calculated using average adult body mass. Additional eGFR calculator available at: http://www.[employer]/multiple_crcl_2012.htm Performed By: #### A LCB #### [facility] [address] [place] [address] Bearing Grinder: Joelle Parker MD Albumin [Mass/Vol] 2.7 g/dL Low 3.5-5.2 [facility] Comment on above: Performed By: #### A LCB #### [facility] [address] [place] [address] Bearing Grinder: Joelle Parker MD Albumin/Glob Ratio 0.5 Low 1.0-2.5 [facility] Comment on above: Performed By: #### A LCB #### [facility] [address] [place] [address] Bearing Grinder: Joelle Parker MD Alkaline Phos 138 U/L High 40-129 [facility] Comment on above: Performed By: #### A LCB #### [facility] [address] [place] [address] Bearing Grinder: Joelle Parker MD ALT [Catalytic activity/Vol] 21 U/L Normal 5-41 [facility] Comment on above: Performed By: #### A LCB #### [facility] [address] [place], [place] [id number] Bearing Grinder: Joelle Parker MD Anion gap [Moles/Vol] 8 mmol/L Low 9-17 [facility] Comment on above: Performed By: #### A LCB #### [facility] [address] [place], [place] [phone] Bearing Grinder: Joelle Parker MD AST [Catalytic activity/Vol] 26 U/L Normal <40 [facility] Comment on above: Performed By: #### A LCB #### [facility] [address] [place], [place] [id number] Bearing Grinder: Joelle Parker MD Bilirubin [Mass/Vol] 0.20 mg/dL Low 0.3-1.2 [facility] Comment on above: Performed By: #### A LCB #### [facility] [address] [place], [place] [id number] Bearing Grinder: Joelle Parker MD BUN/CRE Ratio 16 Normal 9-20 [facility] Comment on above: Performed By: #### A LCB #### [facility] [address] [place], [place] [address] Bearing Grinder: Joelle Parker MD Calcium [Mass/Vol] 9.0 mg/dL Normal 8.6-10.4 [facility] Comment on above: Performed By: #### A LCB #### [facility] [address] [place], [place] [id number] Bearing Grinder: Joelle Parker MD Chloride [Moles/Vol] 101 mmol/L Normal 98-107 [facility] Comment on above: Performed By: #### A LCB #### [facility] [address] [place], [place] [id number] Bearing Grinder: Joelle Parker MD CO2 [Moles/Vol] 26 mmol/L Normal 20-31 [facility] Comment on above: Performed By: #### A LCB #### [facility] [address] [place], [place] [id number] Bearing Grinder: Joelle Parker MD Creatinine [Mass/Vol] 0.80 mg/dL Normal 0.70-1.20 [facility] Comment on above: Performed By: #### A LCB #### [facility] [address] [place], [place] [phone] Bearing Grinder: Joelle Parker MD GFR, Amer >60 Normal >60 [facility] Comment on above: Performed By: #### A LCB #### [facility] [address] [place], [place] [phone] Bearing Grinder: Joelle Parker MD GFR,non Amer >60 Normal >60 [facility] Comment on above: Performed By: #### A LCB #### [facility] [address] [place], [place] [id number] Bearing Grinder: Joelle Parker MD Glucose [Mass/Vol] 98 mg/dL Normal 70-99 [facility] Comment on above: Performed By: #### A LCB #### [facility] [address] [place], [place] [phone] Bearing Grinder: Joelle Parker MD Potassium [Moles/Vol] 4.2 mmol/L Normal 3.7-5.3 [facility] Comment on above: Performed By: #### A LCB #### [facility] [address] [place], [place] [id number] Bearing Grinder: Joelle Parker MD Protein [Mass/Vol] 8.1 g/dL Normal 6.4-8.3 [facility] Comment on above: Performed By: #### A LCB #### [facility] [address] [place], [place] [phone] Bearing Grinder: Joelle Parker MD Sodium [Moles/Vol] 135 mmol/L Normal 135-144 [facility] Comment on above: Performed By: #### A LCB #### [facility] [address] [place] [address] Bearing Grinder: Joelle Parker MD Staging: Normal [facility] Comment on above: Result Comment: Stag e 1: Some kidney damage normal GFR Stage 2: Mild kidney damage GFR 60-89 Stage 3: Moderate kidney damage GFR 30-59 Stage 4: Severe kidney damage GFR 15-29 Stage 5: Severe kidney damage GFR <15 ESRD - chronic treatment by dialysis or transplant Performed By: #### A LCB #### [facility] [address] [place] [address] Bearing Grinder: Joelle Parker MD Urea nitrogen [Mass/Vol] 13 mg/dL Normal 6-20 [facility] Comment on above: Performed By: #### A LCB #### [facility] [address] [place] [address] Bearing Grinder: Joelle Parker MD Comprehensive Metabolic Pane [facility] 01-10-2022 Albumin [Mass/Vol] 2.7 g/dL Low 3.5 - 5.2 g/dL [facility] Albumin/Globulin [Mass ratio] 0.5 {ratio} Low [facility] ALP (Bld) [Catalytic activity/Vol] 138 U/L High 40 - 129 U/L [facility] ALT [Catalytic activity/Vol] 21 U/L 5 - 41 U/L [facility] Anion gap [Moles/Vol] 8 mmol/L Low 9 - 17 mmol/L [facility] AST [Catalytic activity/Vol] 26 U/L <40 [facility] Bilirubin [Mass/Vol] 0.20 mg/dL Low 0.3 - 1 .2 mg/dL [facility] Calcium [Mass/Vol] 9.0 mg/dL 8.6 - 10. 4 mg/dL [facility] Chloride [Moles/Vol] 101 mmol/L 98 - 10 7 mmol/L [facility] CO2 [Moles/Vol] 26 mmol/L 20 - 31 mmol/L [facility] Creatinine [Mass/Vol] 0.8 mg/dL 0.70 - 1.20 mg/dL [facility] Free PSA/Total PSA [Mass fraction] 8.1 g/dL 6.4 - 8.3 g/dL [facility] GFR >60 >60 mL/min [facility] GFR Non- >60 >60 mL/min [facility] Glucose [Mass/Vol] 98 mg/dL 70 - 99 mg/dL [facility] Potassium [Moles/Vol] 4.2 mmol/L 3.7 - 5.3 mmol/L [facility] Sodium [Moles/Vol] 135 mmol/L 135 - 144 mmol/L [facility] Urea nitrogen (BldV) [Mass/Vol] 13 mg/dL 6 - 20 mg/dL [facility] Urea nitrogen/Creatinine (Bld) [Mass ratio] 16 [facility] Ethanolon 01-10-2022 Ethanol [Mass/Vol] mg/dL <10 mg/dL [facility] Ethanol percent <0.010 <0.010 % [facility] Ethanol Alcoholon 01-10-2022 Ethanol [Mass/Vol] mg/dL Normal <10 [facility] Comment on above: Performed By: #### A LCB #### [facility] [address] [place] [address] Bearing Grinder: Joelle Parker MD Ethanol percent <0.010 Normal <0.010 [facility] Comment on above: Performed By: #### A LCB #### [facility] [address] [place] [address] Bearing Grinder: Joelle Parker MD Laboratory - Chemistry and C hemistry - challengeon 01-10-2022 GFR/1.73 sq M.predicted MDRD (S/P/Bld) [Vol rate/Area] [facility] Comment on above: Average GFR for 40-4 9 years old: 99 mL/min/1.73sq m Chronic Kidney Disease: <60 mL/min/1.73sq m Kidney failure: <15 mL/min/1.73sq m eGFR calculated using average adult body mass. Additional eGFR calculator available at: http://www.globalrph.[employer]/multiple_crcl_2011.htm Stage 1: Some kidney damage normal GFR Stage 2: Mild kidney damage GFR 60-89 Stage 3: Moderate kidney damage GFR 30-59 Stage 4: Severe kidney damage GFR 15-29 Stage 5: Severe kidney damage GFR <15 ESRD - chronic treatment by dialysis or transplant No Panel Informationon 01-10 Interpretation and review of laboratory results Abnormal [facility] Salicylateon 01-10-2022 Salicylate <1 Low 3-10 [facility] Comment on above: Performed By: #### B C #### [facility] [address] [place] [address] Bearing Grinder: Joelle Parker MD Salicylate Lvl <1 Low 3 - 10 mg/dL [facility] XR FOOT LEFT (MIN 3 VIEWS)on [...] by: Roscoe Ferrer 01/10/22 Final result Normal [facility] Soft tissue defect over the [...] No underlying bony changes to suggest osteomyelitis. [facility] Roscoe Mcnulty P - 01/10/2022 [...] suggest osteomyelitis. Cannot exclude soft tissue infection [facility] Work Phone: Radiology Study observation (narrative) [employer] Work Phone: XR FOOT LEFT (MIN 3 VIEWS)Or dered By: Roscoe Ferrer on 01-10-2022 [facility] Work Phone: Basic Metabolic Panel w/ Ref rebecca to MGon 12-20-2021 Anion gap [Moles/Vol] 8 mmol/L Low 9 - 17 mmol/L [facility] Calcium [Mass/Vol] 7.7 mg/dL Low 8.6 - 10. 4 mg/dL [facility] Chloride [Moles/Vol] 99 mmol/L 98 - 10 7 mmol/L [facility] CO2 [Moles/Vol] 23 mmol/L 20 - 31 mmol/L [facility] Creatinine [Mass/Vol] 0.82 mg/dL 0.70 - 1.20 mg/dL [facility] GFR >60 >60 mL/min [facility] GFR Non- >60 >60 mL/min [facility] GFR/1.73 sq M.predicted MDRD (S/P/Bld) [Vol rate/Area] [facility] Comment on above: Average GFR for 30-3 9 years old: 107 mL/min/1.73sq m Chronic Kidney Disease: <60 mL/min/1.73sq m Kidney failure: <15 mL/min/1.73sq m eGFR calculated using average adult body mass. Additional eGFR calculator available at: http://www.[employer]/multiple_crcl_2012.htm GFR/1.73 sq M.predicted MDRD (S/P/Bld) [Vol rate/Area] NOT REPORTED [facility] Glucose [Mass/Vol] 110 mg/dL High 70 - 99 mg/dL [facility] Interpretation and review of laboratory results Abnormal [facility] Potassium [Moles/Vol] 4.6 mmol/L 3.7 - 5.3 mmol/L [facility] Sodium [Moles/Vol] 130 mmol/L Low 135 - 144 mmol/L [facility] Urea nitrogen (BldV) [Mass/Vol] 15 mg/dL 6 - 20 mg/dL [facility] Urea nitrogen/Creatinine (Bld) [Mass ratio] NOT REPORTED [facility] IR ARTHR/ASP/INJ MAJOR JT/BU RSA RIGHT WO USon 12-20-2021 Successful fluoroscopic-guided right shoulder aspiration. [facility] RIS CONSOLIDATED EXAMINATION: Fluoroscopic guided [...] minutes DAP 2 cGy cm 2 PROCEDURE: DISPATCHER MAINTENANCE SERVICE: Everett Ga This procedure was performed by Everett Ga PA-C under indirect supervision of Dr. Dyson. Informed consent was obtained after a detailed explanation of the procedure including risks, benefits, and alternatives. Stratton protocol was observed using maximum sterile barrier [...] and left the Department in stable condition. [facility] RIS Darryl Cerrato MD - [...] minutes DAP 2 cGy cm 2 PROCEDURE: DISPATCHER MAINTENANCE SERVICE: Everett Ga This procedure was performed by Everett Ga PA-C under indirect supervision of Dr. Dyson. Informed consent was obtained after a detailed explanation of the procedure including risks, benefits, and alternatives. Stratton protocol was observed using maximum sterile barrier [...] condition. IMPRESSION: Successful fluoroscopic-guided right shoulder aspiration. [facility] Work Phone: Radiology Study observation (narrative) [employer] Work Phone: IR ARTHR/ASP/INJ MAJOR JT/BU RSA RIGHT WO USOrdered By: Darryl Dyson on 12-20-2021 [facility] Work Phone: No Panel Informationon 12-20 [facility] VANCOMYCIN, RANDOMon 022 Vancomycin Random Date last dose NOT REPORTED [facility] Vancomycin Random Dose amount NOT REPORTED [facility] Vancomycin Random Time last dose NOT REPORTED [facility] Vancomycin Rm 32.8 ug/mL [facility] Comment on above: Higher trough serum vancomycin concentrations of 15-20 ug/mL are recommended for complicated infections such as bacteremia, endocarditis, osteomyelitis, meningitis, and hospital acquired pneumonia. Basic Metabolic Panel w/ Ref rebecca to MGon 12-19-2021 Anion gap [Moles/Vol] 9 mmol/L 9 - 17 mmol/L [facility] Calcium [Mass/Vol] 8.4 mg/dL Low 8.6 - 10. 4 mg/dL [facility] Chloride [Moles/Vol] 101 mmol/L 98 - 10 7 mmol/L [facility] CO2 [Moles/Vol] 22 mmol/L 20 - 31 mmol/L [facility] Creatinine [Mass/Vol] 0.72 mg/dL 0.70 - 1.20 mg/dL [facility] GFR >60 >60 mL/min [facility] GFR Non- >60 >60 mL/min [facility] GFR/1.73 sq M.predicted MDRD (S/P/Bld) [Vol rate/Area] [facility] Comment on above: Average GFR for 30-3 9 years old: 107 mL/min/1.73sq m Chronic Kidney Disease: <60 mL/min/1.73sq m Kidney failure: <15 mL/min/1.73sq m eGFR calculated using average adult body mass. Additional eGFR calculator available at: http://www.[employer]/multiple_crcl_2012.htm GFR/1.73 sq M.predicted MDRD (S/P/Bld) [Vol rate/Area] NOT REPORTED [facility] Glucose [Mass/Vol] 106 mg/dL High 70 - 99 mg/dL [facility] Potassium [Moles/Vol] 5.4 mmol/L High 3.7 - 5.3 mmol/L [facility] Sodium [Moles/Vol] 132 mmol/L Low 135 - 144 mmol/L [facility] Urea nitrogen (BldV) [Mass/Vol] 11 mg/dL 6 - 20 mg/dL [facility] Urea nitrogen/Creatinine (Bld) [Mass ratio] NOT REPORTED [facility] C-Reactive Proteinon 022 CRP [Mass/Vol] 45.9 mg/L High 0.0 - 5.0 mg/L [facility] No Panel Informationon 12-19 Interpretation and review of laboratory results Abnormal [facility] POTASSIUMon 12-19-2021 Potassium [Moles/Vol] 4.3 mmol/L 3.7 - 5.3 mmol/L [facility] TSH with Reflexon 12-19-2021 TSH Qn 2.73 m[IU]/L [facility] XR CHEST PORTABLEon 12-19-19 22 Scattered infiltrate s with right-sided PICC line. [facility] RIS CONSOLIDATED EXAMINATION: ONE XRAY [...] with the tip in the mid SVC. [facility] CONSOLIDATED Conrad Aquino MD - [...] IMPRESSION: Scattered infiltrates with right-sided PICC line. [facility] [employer] Work Phone: Radiology Study observation (narrative) [facility] Work Phone: XR CHEST PORTABLEOrdered By: Conrad Aquino on 12-19-2021 [facility] Work Phone: Basic Metabolic Panel w/ Ref rebecca to MGon 12-18-2021 Anion gap [Moles/Vol] 8 mmol/L Low 9 - 17 mmol/L [facility] Calcium [Mass/Vol] 7.7 mg/dL Low 8.6 - 10. 4 mg/dL [facility] Chloride [Moles/Vol] 100 mmol/L 98 - 10 7 mmol/L [facility] CO2 [Moles/Vol] 20 mmol/L 20 - 31 mmol/L [facility] Creatinine [Mass/Vol] 0.38 mg/dL Low 0.70 - 1.20 mg/dL [facility] GFR >60 >60 mL/min [facility] [employer] GFR Non- >60 >60 mL/min [facility] GFR/1.73 sq M.predicted MDRD (S/P/Bld) [Vol rate/Area] [facility] [employer] Comment on above: Average GFR for 30-3 9 years old: 107 mL/min/1.73sq m Chronic Kidney Disease: <60 mL/min/1.73sq m Kidney failure: <15 mL/min/1.73sq m eGFR calculated using average adult body mass. Additional eGFR calculator available at: http://www.[employer]/multiple_crcl_2012.htm GFR/1.73 sq M.predicted MDRD (S/P/Bld) [Vol rate/Area] NOT REPORTED [facility] Glucose [Mass/Vol] 121 mg/dL High 70 - 99 mg/dL [facility] Potassium [Moles/Vol] 4.1 mmol/L 3.7 - 5.3 mmol/L [facility] [facility] Sodium [Moles/Vol] 128 mmol/L Low 135 - 144 mmol/L [facility] Urea nitrogen (BldV) [Mass/Vol] 10 mg/dL 6 - 20 mg/dL [facility] Urea nitrogen/Creatinine (Bld) [Mass ratio] NOT REPORTED [facility] [employer] Body Fluid Cell Count with D ifferentialon 12-18-2021 Appearance, Fluid NOT REPORTED [facility] Basos, Fluid NOT REPORTED 0 % [place] th Color, Fluid NOT REPORTED [facility] Eos, Fluid NOT REPORTED 0 % [facility] Fluid Diff Comment NOT REPORTED [facility] [employer] Lymphocytes, Body Fluid 33 % [facility] Comment on above: The reference range and other method performance specifications have not been established for this body fluid. The test result must be integrated into the clinical context for interpretation. Monocyte Count, Fluid NOT REPORTED % [facility] Neutrophil Count, Fluid 47 % [facility] Comment on above: The reference range and other method performance specifications have not been established for this body fluid. The test result must be integrated into the clinical context for interpretation. Other Cells, Fluid MONOCYTES % [employer] Comment on above: The reference range and other method performance specifications have not been established for this body fluid. The test result must be integrated into the clinical context for interpretation. RBC, Fluid 5000 /mm3 [facility] Comment on above: The reference range and other method performance specifications have not been established for this body fluid. The test result must be integrated into the clinical context for interpretation. Specimen type Nom (Spec) .SYNOVIAL FLUID [facility] Comment on above: LEFT ANKLE WBC, Fluid 1126 /mm3 [facility] Comment on above: The reference range and other method performance specifications have not been established for this body fluid. The test result must be integrated into the clinical context for interpretation. [facility] Appearance, Fluid NOT REPORTED [facility] Basos, Fluid NOT REPORTED 0 % [place] th Color, Fluid NOT REPORTED [place] th Eos, Fluid NOT REPORTED 0 % [facility] Fluid Diff Comment NOT REPORTED [facility] Lymphocytes, Body Fluid 9 % M ercy [...] for interpretation. Other Cells, Fluid MONOCYTES % [facility] Comment on above: The reference range and other method performance specifications have not been established for this body fluid. The test result must be integrated into the clinical context for interpretation. RBC, Fluid 24443 /mm3 [facility] Comment on above: The reference range and other method performance specifications have not been established for this body fluid. The test result must be integrated into the clinical context for interpretation. Specimen type Nom (Spec) LEFT [facility] Comment on above: .WRIST WBC, Fluid 63338 /mm3 [facility] Comment on above: The reference range and other method performance specifications have not been established for this body fluid. The test result must be integrated into the clinical context for interpretation. [facility] Body Fluid Crystalon 02-07-2 022 Crystals, Fluid Negative NEGATIVE [facility] Comment on above: NO CRYSTALS SEEN Specimen type Nom (Spec) .SYNOVIAL FLUID [facility] Comment on above: LEFT ANKLE [facility] Crystals, Fluid Negative NEGATIVE [facility] Comment on above: NO CRYSTALS SEEN Specimen type Nom (Spec) .SYNOVIAL FLUID [facility] Crystals, Fluid Negative NEGATIVE [facility] Comment on above: NO CRYSTALS SEEN Specimen type Nom (Spec) .SYNOVIAL FLUID [facility] Culture, Blood 1on 2 Bacteria identified Cx Nom (Unsp spec) Positive Abnormal [facility] Bacteria identified Cx Nom (Unsp spec) DIRECT GRAM STAIN FROM BOTTLE: GRAM POSITIVE COCCI IN CLUSTERS [employer] Bacteria identified Cx Nom (Unsp spec) METHICILLIN RESISTANT STAPHYLOCOCCUS AUREUS Abnormal [facility] Bacteria identified Cx Nom (Unsp spec) (NOTE) Direct Gram Stain from bottle result called to and read back by: ANSELMO Hernández on 12/17/21 at 01:35 [facility] Interpretation and review of laboratory results Abnormal [facility] Special Requests 20ML R HAND [facility] Specimen Description .BLOOD [facility] No Panel Informationon 12-18 Interpretation and review of laboratory results Abnormal [facility] VANCOMYCIN, TROUGHon 022 Vancomycin Tr 8.6 ug/mL Low 10.0 - 20.0 ug/mL [facility] Comment on above: Higher trough serum vancomycin concentrations of 15-20 ug/mL are recommended for complicated infections such as bacteremia, endocarditis, osteomyelitis, meningitis, and hospital acquired pneumonia. Vancomycin Trough Date last dose NOT REPORTED [facility] Vancomycin Trough Dose amount NOT REPORTED [facility] Vancomycin Trough Time last dose NOT REPORTED [facility] Basic Metabolic Panel w/ Ref rebecca to MGon 12-17-2021 Anion gap [Moles/Vol] 5 mmol/L Low 9 - 17 mmol/L [facility] Calcium [Mass/Vol] 7.9 mg/dL Low 8.6 - 10. 4 mg/dL [employer] Chloride [Moles/Vol] 102 mmol/L 98 - 10 7 mmol/L [facility] [employer] CO2 [Moles/Vol] 24 mmol/L 20 - 31 mmol/L [facility] Creatinine [Mass/Vol] 0.52 mg/dL Low 0.70 - 1.20 mg/dL [facility] [employer] GFR >60 >60 mL/min [facility] [employer] GFR Non- >60 >60 mL/min [facility] [employer] GFR/1.73 sq M.predicted MDRD (S/P/Bld) [Vol rate/Area] [facility] Comment on above: Average GFR for 30-3 9 years old: 107 mL/min/1.73sq m Chronic Kidney Disease: <60 mL/min/1.73sq m Kidney failure: <15 mL/min/1.73sq m eGFR calculated using average adult body mass. Additional eGFR calculator available at: http://www.[employer]/multiple_crcl_2012.htm GFR/1.73 sq M.predicted MDRD (S/P/Bld) [Vol rate/Area] NOT REPORTED [facility] [employer] Glucose [Mass/Vol] 97 mg/dL 70 - 99 mg/dL [facility] [employer] Potassium [Moles/Vol] 4.7 mmol/L 3.7 - 5.3 mmol/L [facility] Sodium [Moles/Vol] 131 mmol/L Low 135 - 144 mmol/L [facility] Urea nitrogen (BldV) [Mass/Vol] 9 mg/dL 6 - 20 mg/dL [facility] Urea nitrogen/Creatinine (Bld) [Mass ratio] NOT REPORTED [facility] C-Reactive Proteinon 022 CRP [Mass/Vol] 56.1 mg/L High 0.0 - 5.0 mg/L [facility] [employer] CBC Auto Differentialon Absolute Eos # 0.12 [facility] th Absolute Immature Granulocyte 0.06 [facility] Absolute Lymph # 1.25 [facility] alth Absolute [facility] # 0.[address] [facility] lth Basophils (Bld) [#/Vol] 0.06 10*3/uL [facility] Basophils/100 WBC (Bld) 1 % 0 - 2 % [facility] [employer] Differential Type NOT REPORTED [facility] Eosinophils/100 WBC (Bld) 2 % 1 - 4 % [facility] Hematocrit (Bld) [Volume fraction] 28.4 % Low 40.7 - 50.3 % [facility] Hemoglobin.gastrointesti nal spec 1 Ql (Stl) 9.4 g/dL Low 13.0 - 17.0 g/dL [facility] Immature granulocytes/100 WBC (Bld) 1 % High 0 [facility] Interpretation and review of laboratory results Abnormal [facility] Lymphocytes/100 WBC (Bld) 20 % Low 24 - 43 % [facility] MCH (RBC) [Entitic mass] 28.0 pg 25. 2 - 33.5 pg [facility] MCHC (RBC) [Mass/Vol] 33.1 g/dL 28.4 - 34.8 g/dL [facility] MCV (RBC) [Entitic vol] 84.5 fL 82.6 - 102.9 fL [facility] Monocytes/100 WBC (Bld) 11 % 3 - 12 % [facility] NRBC Automated 0.0 0.0 per 100 WBC [facility] Platelet distribution width (Bld) [Ratio] 14.9 % High 11.8 - 14.4 % [facility] Platelet Estimate NOT REPORTED [facility] Platelet mean volume (Bld) [Entitic vol] 9.9 fL 8.1 - 13.5 fL [facility] Platelets (Bld) [#/Vol] 188 10*3/uL [facility] RBC (Bld) [#/Vol] 3.36 10*6/uL Low 4.21 - 5.7 7 m/uL [facility] RBC (Bld) [#/Vol] ANISOCYTOSIS PRESENT [facility] Segmented neutrophils/100 WBC (Bld) 65 % 36 - 65 % [facility] Segs [facility]04 [facility] (Bld[facility] [#/Vol] 6.2 10*3/uL [facility] WBC (Bld) [#/Vol] NOT REPORTED [facility] No Panel Informationon 12-17 Interpretation and review of laboratory results Abnormal [facility] Basic Metabolic Panel w/ Ref rebecca to MGon 12-16-2021 Anion gap [Moles/Vol] 8 mmol/L Low 9 - 17 mmol/L [facility] Calcium [Mass/Vol] 7.6 mg/dL Low 8.6 - 10. 4 mg/dL [facility] Chloride [Moles/Vol] 97 mmol/L Low 98 - 10 7 mmol/L [facility] CO2 [Moles/Vol] 23 mmol/L 20 - 31 mmol/L [facility] Creatinine [Mass/Vol] 0.53 mg/dL Low 0.70 - 1.20 mg/dL [facility] GFR >60 >60 mL/min [facility] GFR Non- >60 >60 mL/min [facility] [employer] GFR/1.73 sq M.predicted MDRD (S/P/Bld) [Vol rate/Area] [facility] [employer] Comment on above: Average GFR for 30-3 9 years old: 107 mL/min/1.73sq m Chronic Kidney Disease: <60 mL/min/1.73sq m Kidney failure: <15 mL/min/1.73sq m eGFR calculated using average adult body mass. Additional eGFR calculator available at: http://www.[employer]/multiple_crcl_2012.htm GFR/1.73 sq M.predicted MDRD (S/P/Bld) [Vol rate/Area] NOT REPORTED [facility] [employer] Glucose [Mass/Vol] 117 mg/dL High 70 - 99 mg/dL [facility] Interpretation and review of laboratory results Abnormal [facility] Potassium [Moles/Vol] 4.1 mmol/L 3.7 - 5.3 mmol/L [facility] Sodium [Moles/Vol] 128 mmol/L Low 135 - 144 mmol/L [facility] Urea nitrogen (BldV) [Mass/Vol] 10 mg/dL 6 - 20 mg/dL [facility] Urea nitrogen/Creatinine (Bld) [Mass ratio] NOT REPORTED [facility] Body Fluid Cell Count with D ifferentialon 12-16-2021 Appearance, Fluid NOT REPORTED [facility] [employer] Basos, Fluid NOT REPORTED 0 % [facility] th Color, Fluid NOT REPORTED [facility] th Eos, Fluid NOT REPORTED 0 % [facility] Fluid Diff Comment NOT REPORTED [facility] Lymphocytes, Body Fluid 9 % [facility] Comment on above: The reference range and other method performance specifications have not been established for this body fluid. The test result must be integrated into the clinical context for interpretation. Monocyte Count, Fluid NOT REPORTED % [facility] Neutrophil Count, Fluid 91 % [facility] Comment on above: The reference range and other method performance specifications have not been established for this body fluid. The test result must be integrated into the clinical context for interpretation. Other Cells, Fluid NOT REPORTED % [facility] [employer] RBC, Fluid <3000 /mm3 [facility] [employer] Comment on above: The reference range and other method performance specifications have not been established for this body fluid. The test result must be integrated into the clinical context for interpretation. Specimen type Nom (Spec) RIGHT [facility] Comment on above: .KNEE WBC, Fluid 6514 /mm3 [facility] Comment on above: The reference range and other method performance specifications have not been established for this body fluid. The test result must be integrated into the clinical context for interpretation. [facility] CBC WITH AUTO DIFFERENTIALon 12-16-2021 Absolute Eos # 0.11 [facility] Absolute Immature Granulocyte <0.03 [facility] Absolute Lymph # 1.12 [facility] alth Absolute [facility] # 0.[address] [facility] lt Basophils (Bld) [#/Vol] 0.04 10*3/uL [facility] Basophils/100 WBC (Bld) 1 % 0 - 2 % [facility] Differential Type NOT REPORTED [facility] Eosinophils/100 WBC (Bld) 2 % 1 - 4 % [facility] Hematocrit (Bld) [Volume fraction] 29.2 % Low 40.7 - 50.3 % [facility] Hemoglobin.gastrointesti nal spec 1 Ql (Stl) 9.7 g/dL Low 13.0 - 17.0 g/dL [facility] Immature granulocytes/100 WBC (Bld) 0 % 0 [facility] Interpretation and review of laboratory results Abnormal [facility] Lymphocytes/100 WBC (Bld) 15 % Low 24 - 43 % [facility] MCH (RBC) [Entitic mass] 27.8 pg 25. 2 - 33.5 pg [facility] MCHC (RBC) [Mass/Vol] 33.2 g/dL 28.4 - 34.8 g/dL [facility] MCV (RBC) [Entitic vol] 83.7 fL 82.6 - 102.9 fL [facility] Monocytes/100 WBC (Bld) 10 % 3 - 12 % [facility] NRBC Automated 0.0 0.0 per 100 WBC [facility] Platelet distribution width (Bld) [Ratio] 15.0 % High 11.8 - 14.4 % [facility] Platelet Estimate NOT REPORTED [facility] Platelet mean volume (Bld) [Entitic vol] 10.0 fL 8.1 - 13.5 fL [facility] Platelets (Bld) [#/Vol] 163 10*3/uL [facility] RBC (Bld) [#/Vol] 3.49 10*6/uL Low 4.21 - 5.7 7 m/uL [facility] RBC (Bld) [#/Vol] ANISOCYTOSIS PRESENT [facility] Segmented neutrophils/100 WBC (Bld) 72 % High 36 - 65 % [facility] Segs [facility].34 [facility] (Bld) [#/Vol] 7.4 10*3/uL [facility] WBC (Bld) [#/Vol] NOT REPORTED [facility] Culture, Blood 1on 2 Bacteria identified Cx Nom (Unsp spec) Positive Abnormal [facility] Bacteria identified Cx Nom (Unsp spec) DIRECT GRAM STAIN FROM BOTTLE: GRAM POSITIVE COCCI IN CLUSTERS [facility] Bacteria identified Cx Nom (Unsp spec) METHICILLIN RESISTANT STAPHYLOCOCCUS AUREUS For susceptibility, refer to previous culture. Abnormal [facility] Bacteria identified Cx Nom (Unsp spec) (NOTE) Direct Gram Stain from bottle result called to and read back by: ANSELMO Dewitt on 12/14/21 at 17:45 [facility] Interpretation and review of laboratory results Abnormal [facility] Special Requests L FA [facility]CC [facility] Specimen Description .BLOOD [facility] No Panel Informationon 12-16 Radiology Study observation (narrative) [employer] [facility] Work Phone: Sedimentation Rateon 022 Interpretation and review of laboratory results Abnormal [facility] Sed Rate 32 mm High 0 - 15 mm [facility] VL DUP LOWER EXTREMITY VENOU S LEFTon 12-16-2021 Gordo Juárez MD - 12/16/2021 [facility] Vascular Lower Extremities DVT Study Procedure Patient Name COTY Date of Study 12/16/2021 TIP Boni Date of 1980 Gender Male Age 41 year(s) Race Room Number 0316 Height: 73 inch, 185.42 cm Corporate ID [id number] Weight: 170 pounds, 77.1 kg # Patient Acct [id number] BSA: 2.01 m^2 BMI: 22.43 kg/m^2 # MR # [id number] [employer] Stock Clerk Vivienne Roach RVT Interpreting Physician Gordo Juárez [...] !None ! + (more content not included)... [employer] Phone: [facility] Phone: Radiology Study observation (narrative) [facility] Phone: VL DUP UPPER EXTREMITY VENOU S LEFTon 12-16-2021 Gordo Juárez MD - 12/16/2021 [facility] Vascular Upper Extremities Veins Procedure Patient Name COTY Date of Study 12/16/2021 TIP Boni Date of 1980 Gender Male Age 41 year(s) Race Room Number 0316 Height: 73 inch, 185.42 cm Corporate ID [id number] Weight: 170 pounds, 77.1 kg # Patient Acct [id number] BSA: 2.01 m^2 BMI: 22.43 kg/m^2 # MR # [id number] [employer] Stock Clerk Vivienne Roach RVT Interpreting Physician Gordo Juárez [...] ! + --------- (more content not included)... [employer] Phone: Radiology Study observation (narrative) [employer] Phone: VL DUP UPPER EXTREMITY VENOU S LEFTOrdered By: Gordo Juárez on 12-16-2021 [employer] Phone: XR KNEE RIGHT (3 VIEWS)on No acute abnormality of the knee. [facility] EXAMINATION: THREE XRAY VIEWS OF THE RIGHT KNEE 12/16/2021 2:02 pm COMPARISON: None. HISTORY: ORDERING SYSTEM PROVIDED HISTORY: Trauma/Fracture TECHNOLOGIST PROVIDED HISTORY: Trauma/Fracture FINDINGS: No evidence of acute fracture or dislocation. No focal osseous lesion. No evidence of joint effusion. No focal soft tissue abnormality. [facility] Addy Gates MD - 12/16/2021 EXAMINATION: THREE XRAY VIEWS OF THE RIGHT KNEE 12/16/2021 2:02 pm COMPARISON: None. HISTORY: ORDERING SYSTEM PROVIDED HISTORY: Trauma/Fracture TECHNOLOGIST PROVIDED HISTORY: Trauma/Fracture FINDINGS: No evidence of acute fracture or dislocation. No focal osseous lesion. No evidence of joint effusion. No focal soft tissue abnormality. IMPRESSION: No acute abnormality of the knee. [employer] Phone: XR KNEE RIGHT (3 VIEWS)Order ed By: Addy Gates on 12-16-2021 [employer] Phone: XR SHOULDER RIGHT (MIN 2 VIE WS)on 12-16-2021 No acute osseous abnormality. [facility] EXAMINATION: THREE XRAY VIEWS OF THE RIGHT SHOULDER 12/16/2021 2:02 pm COMPARISON: None. HISTORY: ORDERING SYSTEM PROVIDED HISTORY: Trauma/Fracture TECHNOLOGIST PROVIDED HISTORY: Trauma/Fracture FINDINGS: Glenohumeral joint is normally aligned. No evidence of acute fracture or dislocation. No abnormal periarticular calcifications. The AC joint is unremarkable in appearance. Right PICC with tip in the superior vena cava. [facility] Addy Gates MD [...] vena cava. IMPRESSION: No acute osseous abnormality. [employer] Work Phone: [employer] Work Phone: C-REACTIVE PROTEINon 022 CRP [Mass/Vol] 62.9 mg/L High 0.0 - 5.0 mg/L [facility] CBC WITH AUTO DIFFERENTIALon 12-15-2021 Absolute Eos # 0.25 [facility] th Absolute Immature Granulocyte 0.08 [facility] Absolute Lymph # 1.25 [facility] alth Absolute [facility] # 0.[address] [facility] lth Basophils (Bld) [#/Vol] 0.08 10*3/uL [facility] Basophils/100 WBC (Bld) 1 % 0 - 2 % [facility] Differential Type NOT REPORTED [facility] Eosinophils/100 WBC (Bld) 3 % 1 - 4 % [facility] Hematocrit (Bld) [Volume fraction] 29.7 % Low 40.7 - 50.3 % [facility] Hemoglobin.gastrointesti nal spec 1 Ql (Stl) 9.8 g/dL Low 13.0 - 17.0 g/dL [facility] Immature granulocytes/100 WBC (Bld) 1 % High 0 [facility] Interpretation and review of laboratory results Abnormal [facility] Lymphocytes/100 WBC (Bld) 15 % Low 24 - 43 % [facility] MCH (RBC) [Entitic mass] 27.8 pg 25. 2 - 33.5 pg [facility] MCHC (RBC) [Mass/Vol] 33.0 g/dL 28.4 - 34.8 g/dL [facility] MCV (RBC) [Entitic vol] 84.4 fL 82.6 - 102.9 fL [facility] Monocytes/100 WBC (Bld) 10 % 3 - 12 % [facility] Morphology Adis (Bld) [Interp] ANISOCYTOSIS PRESENT [facility] NRBC Automated 0.0 0.0 per 100 WBC [facility] Platelet distribution width (Bld) [Ratio] 15.0 % High 11.8 - 14.4 % [facility] Platelet Estimate NOT REPORTED [facility] Platelet mean volume (Bld) [Entitic vol] 10.5 fL 8.1 - 13.5 fL [facility] Platelets (Bld) [#/Vol] 140 10*3/uL [facility] RBC (Bld) [#/Vol] 3.52 10*6/uL Low 4.21 - 5.7 7 m/uL [facility] RBC (Bld) [#/Vol] NOT REPORTED [facility] Segmented neutrophils/100 WBC (Bld) 70 % High 36 - 65 % [facility] Segs Absolute 5.81 [facility] WBC (Bld) [#/Vol] 8.3 10*3/uL [facility] WBC (Bld) [#/Vol] NOT REPORTED [facility] CREATININE, RANDOM URINEon 0 12-15-2021 Creatinine, Ur 64.4 mg/dL 39.0 - 259.0 mg/dL [facility] Catheterization and angiogra phy procedure details panelOrdered By: Unknown Result on 12-15-2021 [facility] Comprehensive Metabolic Pane l w/ Reflex to MGon 12-15-2021 Albumin [Mass/Vol] 1.9 g/dL Low 3.5 - 5.2 g/dL [facility] Albumin/Globulin [Mass ratio] 0.5 {ratio} Low [facility] ALP (Bld) [Catalytic activity/Vol] 117 U/L 40 - 129 U/L [facility] ALT [Catalytic activity/Vol] 64 U/L High 5 - 41 U/L [facility] Anion gap [Moles/Vol] 7 mmol/L Low 9 - 17 mmol/L [facility] AST [Catalytic activity/Vol] 55 U/L High <40 [facility] Bilirubin [Mass/Vol] 0.38 mg/dL 0.3 - 1 .2 mg/dL [facility] [employer] Calcium [Mass/Vol] 7.0 mg/dL Low 8.6 - 10. 4 mg/dL [facility] Chloride [Moles/Vol] 100 mmol/L 98 - 10 7 mmol/L [facility] CO2 [Moles/Vol] 22 mmol/L 20 - 31 mmol/L [facility] Creatinine [Mass/Vol] 0.55 mg/dL Low 0.70 - 1.20 mg/dL [facility] Free PSA/Total PSA [Mass fraction] 5.7 g/dL Low 6.4 - 8.3 g/dL [facility] GFR >60 >60 mL/min [facility] GFR Non- >60 >60 mL/min [facility] GFR/1.73 sq M.predicted MDRD (S/P/Bld) [Vol rate/Area] [facility] Comment on above: Average GFR for 30-3 9 years old: 107 mL/min/1.73sq m Chronic Kidney Disease: <60 mL/min/1.73sq m Kidney failure: <15 mL/min/1.73sq m eGFR calculated using average adult body mass. Additional eGFR calculator available at: http://www.[employer]/multiple_crcl_2012.htm GFR/1.73 sq M.predicted MDRD (S/P/Bld) [Vol rate/Area] NOT REPORTED [facility] Glucose [Mass/Vol] 111 mg/dL High 70 - 99 mg/dL [facility] Potassium [Moles/Vol] 4.2 mmol/L 3.7 - 5.3 mmol/L [facility] Sodium [Moles/Vol] 129 mmol/L Low 135 - 144 mmol/L [facility] Urea nitrogen (BldV) [Mass/Vol] 9 mg/dL 6 - 20 mg/dL [facility] Urea nitrogen/Creatinine (Bld) [Mass ratio] NOT REPORTED [facility] Culture, Blood 1on 2 Bacteria identified Cx Nom (Unsp spec) Positive Abnormal [facility] Bacteria identified Cx Nom (Unsp spec) DIRECT GRAM STAIN FROM BOTTLE: GRAM POSITIVE COCCI IN CLUSTERS [facility] Bacteria identified Cx Nom (Unsp spec) Staphylococcus aureus Detected: mecA/C and MREJ Gene Detected- Methicillin Resistant Organism Methodology- Polymerase Chain Reaction (PCR) Abnormal [facility] Bacteria identified Cx Nom (Unsp spec) METHICILLIN RESISTANT STAPHYLOCOCCUS AUREUS Abnormal [facility] Bacteria identified Cx Nom (Unsp spec) (NOTE) Direct Gram Stain from bottle and Polymerase Chain Reaction (PCR) results called to and read back by:DIANE Martinez AT 1440 ON 12/14/2021 [facility] Interpretation and review of laboratory results Abnormal [facility] Special Requests RT AC [address] [facility] Specimen Description .BLOOD [facility] No Panel Informationon 12-15 [facility] Interpretation and review of laboratory results Abnormal [facility] Osmolality, Urineon 12-15-19 22 Osmolality, Ur 503 [facility] th [facility] SODIUM, URINE, RANDOMon Sodium (U) [Moles/Vol] 140 mmol/L [facility] [facility] Comment on above: No normal range esta blished. Vancomycin, Randomon 022 Vancomycin Random Date last dose NOT REPORTED [facility] Vancomycin Random Dose amount NOT REPORTED [facility] Vancomycin Random Time last dose NOT REPORTED [facility] Vancomycin Rm 14 ug/mL [facility] Comment on above: Higher trough serum vancomycin concentrations of 15-20 ug/mL are recommended for complicated infections such as bacteremia, endocarditis, osteomyelitis, meningitis, and hospital acquired pneumonia. [facility] Basic Metabolic Panel w/ Ref rebecca to MGon 12-14-2021 Anion gap [Moles/Vol] 6 mmol/L Low 9 - 17 mmol/L [facility] [employer] Calcium [Mass/Vol] 7.6 mg/dL Low 8.6 - 10. 4 mg/dL [facility] Chloride [Moles/Vol] 106 mmol/L 98 - 10 7 mmol/L [facility] CO2 [Moles/Vol] 23 mmol/L 20 - 31 mmol/L [facility] [employer] Creatinine [Mass/Vol] 0.55 mg/dL Low 0.70 - 1.20 mg/dL [facility] [employer] GFR >60 >60 mL/min [facility] GFR Non- >60 >60 mL/min [facility] GFR/1.73 sq M.predicted MDRD (S/P/Bld) [Vol rate/Area] [facility] Comment on above: Average GFR for 30-3 9 years old: 107 mL/min/1.73sq m Chronic Kidney Disease: <60 mL/min/1.73sq m Kidney failure: <15 mL/min/1.73sq m eGFR calculated using average adult body mass. Additional eGFR calculator available at: http://www.[employer]/multiple_crcl_2012.htm GFR/1.73 sq M.predicted MDRD (S/P/Bld) [Vol rate/Area] NOT REPORTED [facility] Glucose [Mass/Vol] 111 mg/dL High 70 - 99 mg/dL [facility] Interpretation and review of laboratory results Abnormal [facility] Potassium [Moles/Vol] 3.6 mmol/L Low 3.7 - 5.3 mmol/L [facility] Sodium [Moles/Vol] 135 mmol/L 135 - 144 mmol/L [facility] Urea nitrogen (BldV) [Mass/Vol] 13 mg/dL 6 - 20 mg/dL [facility] Urea nitrogen/Creatinine (Bld) [Mass ratio] NOT REPORTED [facility] CBC auto differentialon Absolute Eos # 0.20 [facility] th Absolute Immature Granulocyte 0.05 [facility] Absolute Lymph # 1.04 Low [facility] alth Absolute Hopkins # 0.[address] [facility] lth Basophils (Bld) [#/Vol] 0.03 10*3/uL [facility] Basophils/100 WBC (Bld) 0 % 0 - 2 % [facility] Differential Type NOT REPORTED [facility] Eosinophils/100 WBC (Bld) 2 % 1 - 4 % [facility] Hematocrit (Bld) [Volume fraction] 30.8 % Low 40.7 - 50.3 % [facility] Hemoglobin.gastrointesti nal spec 1 Ql (Stl) 10.3 g/dL Low 13.0 - 17.0 g/dL [facility] Immature granulocytes/100 WBC (Bld) 1 % High 0 [facility] Interpretation and review of laboratory results Abnormal [facility] Lymphocytes/100 WBC (Bld) 11 % Low 24 - 43 % [facility] MCH (RBC) [Entitic mass] 27.9 pg 25. 2 - 33.5 pg [facility] MCHC (RBC) [Mass/Vol] 33.4 g/dL 28.4 - 34.8 g/dL [facility] MCV (RBC) [Entitic vol] 83.5 fL 82.6 - 102.9 fL [facility] Monocytes/100 WBC (Bld) 9 % 3 - 12 % [facility] Automated 0.0 0.0 per 100 WBC [facility] Platelet distribution width (Bld) [Ratio] 14.7 % High 11.8 - 14.4 % [facility] Platelet Estimate NOT REPORTED [facility] Platelet mean volume (Bld) [Entitic vol] 10.8 fL 8.1 - 13.5 fL [facility] Platelets (Bld) [#/Vol] 150 10*3/uL [facility] RBC (Bld) [#/Vol] 3.69 10*6/uL Low 4.21 - 5.7 7 m/uL [facility] RBC (Bld) [#/Vol] ANISOCYTOSIS PRESENT [facility] Segmented neutrophils/100 WBC (Bld) 77 % High 36 - 65 % [facility] Segs [facility].03 [facility]ld[facility] [#/Vol] 9.2 10*3/uL [facility] WBC (Bld) [#/Vol] NOT REPORTED [facility] CULTURE BLOODon 12-14-2021 Microscopic examination [...] F Oxacillin >=4 R F Normal [facility] Comment on above: Performed By: #### C MELCHOR #### [facility] [address] [place] [address] Dr. Amanda Mendez-INRon 12-14-2021 INR Coag (Bld) [Relative time] 1.2 {INR} [facility] Comment on above: Therapeutic Range: Moderate Anticoagulant Intensity: INR = 2.0-3.0 High Anticoagulant Intensity: INR = 2.5-3.5 Interpretation and review of laboratory results Abnormal [facility] Coag (PPP) [Time] 13 s High [facility] w/ Ref rebecca to MGon 12-13-2021 Anion gap [Moles/Vol] 9 mmol/L 9 - 17 mmol/L [facility] Calcium [Mass/Vol] 7.4 mg/dL Low 8.6 - 10. 4 mg/dL [facility] Chloride [Moles/Vol] 104 mmol/L 98 - 10 7 mmol/L [facility] CO2 [Moles/Vol] 22 mmol/L 20 - 31 mmol/L [facility] Creatinine [Mass/Vol] 0.56 mg/dL Low 0.70 - 1.20 mg/dL [facility] GFR >60 >60 mL/min [facility] GFR Non- >60 >60 mL/min [facility] GFR/1.73 sq M.predicted MDRD (S/P/Bld) [Vol rate/Area] [facility] Comment on above: Average GFR for 30-3 9 years old: 107 mL/min/1.73sq m Chronic Kidney Disease: <60 mL/min/1.73sq m Kidney failure: <15 mL/min/1.73sq m eGFR calculated using average adult body mass. Additional eGFR calculator available at: http://www.[employer]/multiple_crcl_2012.htm GFR/1.73 sq M.predicted MDRD (S/P/Bld) [Vol rate/Area] NOT REPORTED [facility] Glucose [Mass/Vol] 121 mg/dL High 70 - 99 mg/dL [facility] Interpretation and review of laboratory results Abnormal [facility] Potassium [Moles/Vol] 3.4 mmol/L Low 3.7 - 5.3 mmol/L [facility] Sodium [Moles/Vol] 135 mmol/L 135 - 144 mmol/L [facility] [employer] Urea nitrogen (BldV) [Mass/Vol] 9 mg/dL 6 - 20 mg/dL [facility] Urea nitrogen/Creatinine (Bld) [Mass ratio] NOT REPORTED [facility] C-Reactive Proteinon 022 CRP [Mass/Vol] 110.3 mg/L High 0.0 - 5.0 mg/L [facility] Interpretation and review of laboratory results Abnormal [facility] CBC AUTO DIFFon 12-13-2021 BASO # 0.0 103/ul Normal 0.0-0.1 [facility] Comment on above: Performed By: #### V ANCT #### [facility] [address] [address] [address] Amanda Cottrell Basophils/100 WBC (Bld) 0.2 % Normal 0.2-2.0 [facility] Comment on above: Performed By: #### V ANCT #### [facility] [address] [address] [address] Amanda Cottrell EO # 0.1 103/ul Normal 0.0-0.7 [facility] Comment on above: Performed By: #### V ANCT #### [facility] [address] [address] [address] Amanda Cottrell Eosinophils/100 WBC (Bld) 1.0 % Normal 0.9-7.0 [facility] Comment on above: Performed By: #### V ANCT #### [facility] [address] [address] [address] Amanda Cottrell Erythrocyte distribution width (RBC) [Ratio] 14.6 % Normal 11.0-15.0 [facility] Comment on above: Performed By: #### V ANCT #### [facility] [address] [address] [address] Amanda Cottrell Hematocrit (Bld) [Volume fraction] 31.3 % Critically low 42.0-54.0 [facility] Comment on above: Performed By: #### V ANCT #### [facility] [address] [address] [address] Amanda Cottrell Hemoglobin (Bld) [Mass/Vol] 10.4 g/dL Critically low 14.0-18.0 [facility] Comment on above: Performed By: #### V ANCT #### [facility] [address] [address] [address] Amanda Cottrell IG # 0.07 10e3/ul Critically high 0.00-0.03 [facility] Comment on above: Performed By: #### V ANCT #### [facility] [address] [address] [address] Amanda Cottrell IG % 0.8 % Critically high 0.0-0.5 [facility] Comment on above: Performed By: #### V ANCT #### [facility] [address] [address] [address] Amanda Cottrell LYMPH # 0.5 103/ul Critically low 1.2-3.8 [facility] Comment on above: Performed By: #### V ANCT #### [facility] [address] [address] [address] Amanda Cottrell Lymphocytes/100 WBC (Bld) 5.0 % Critically low 20.5-60.0 [facility] Comment on above: Performed By: #### V ANCT #### [facility] [address] [address] [address] Amanda Cottrell MANUAL DIFF REQ NO Normal [facility] Comment on above: Performed By: #### V ANCT #### [facility] [address] [address] [address] Amanda Cottrell MCH (RBC) [Entitic mass] 27.5 pg Normal 25.9-34.0 [facility] Comment on above: Performed By: #### V ANCT #### [facility] [address] [address] [address] Amanda Cottrell MCHC (RBC) [Mass/Vol] 33.2 g/dL Normal 29.9-35.2 [facility] Comment on above: Performed By: #### V ANCT #### [facility] [address] [address] [address] Amanda Cottrell MCV (RBC) [Entitic vol] 82.8 fL Normal 80.0-94.0 [facility] Comment on above: Performed By: #### V ANCT #### [facility] [address] [address] [address] Amanda Cottrell MONO # 0.7 103/ul Normal 0.3-0.8 [facility] Comment on above: Performed By: #### V ANCT #### [facility] [address] [address] [address] Amanda Cottrell Monocytes/100 WBC (Bld) 7.9 % Normal 1.7-12.0 [facility] Comment on above: Performed By: #### V ANCT #### [facility] [address] [place] [address] Dr. Amanda Cottrell NEUT # 7.9 103/ul Critically high 1.4-6.5 [facility] Comment on above: Performed By: #### V ANCT #### [facility] [address] [place] [address] Dr. Amanda Cottrell Neutrophils/100 WBC (Bld) 85.1 % Critically high 43.0-75.0 [facility] Comment on above: Performed By: #### V ANCT #### [facility] [address] [place] [address] Dr. Amanda Cottrell Platelet mean volume (Bld) [Entitic vol] 11.1 fL Normal 9.5-13.5 [facility] Comment on above: Performed By: #### V ANCT #### [facility] [address] [place] [address] Dr. Amanda Cottrell PLT 98 103/ul Critically low 150-450 [facility] Comment on above: Performed By: #### V ANCT #### [facility] [address] [place] [address] Dr. Amanda Cottrell RBC 3.78 106/ul Critically low 4.70-6.10 [facility] Comment on above: Performed By: #### V ANCT #### [facility] [address] [place] [address] Dr. Amanda Cottrell WBC 9.2 103/ul Normal 4.0-11.0 [facility] Comment on above: Performed By: #### V ANCT #### [facility] [address] [place] [address] Dr. Amanda Cottrell CBC Auto Differentialon Absolute Eos # 0.14 [facility] Absolute Immature Granulocyte 0.03 [facility] Absolute Lymph # 0.86 Low [facility] alth Absolute Hopkins # 0.92 [facility] Basophils (Bld) [#/Vol] 10*3/uL [facility] Basophils/100 WBC (Bld) 0 % 0 - 2 % [facility] Differential Type NOT REPORTED [facility] Eosinophils/100 WBC (Bld) 2 % 1 - 4 % [facility] Hematocrit (Bld) [Volume fraction] 28.9 % Low 40.7 - 50.3 % [facility] Hemoglobin.gastrointesti nal spec 1 Ql (Stl) 10.1 g/dL Low 13.0 - 17.0 g/dL [facility] Immature granulocytes/100 WBC (Bld) 0 % 0 [facility] Interpretation and review of laboratory results Abnormal [facility] Lymphocytes/100 WBC (Bld) 10 % Low 24 - 43 % [facility] MCH (RBC) [Entitic mass] 28.3 pg 25. 2 - 33.5 pg [facility] MCHC (RBC) [Mass/Vol] 34.9 g/dL High 28.4 - 34.8 g/dL [facility] MCV (RBC) [Entitic vol] 81.0 fL Low 82.6 - 102.9 fL [facility] Monocytes/100 WBC (Bld) 10 % 3 - 12 % [facility] NRBC Automated 0.0 0.0 per 100 WBC [facility] Platelet distribution width (Bld) [Ratio] 14.5 % High 11.8 - 14.4 % [facility] Platelet Estimate NOT REPORTED [facility] Platelet mean volume (Bld) [Entitic vol] NOT REPORTED 8.1 - 13.5 fL [facility] Platelets (Bld) [#/Vol] See Reflexed IPF Result [facility] RBC (Bld) [#/Vol] 3.57 10*6/uL Low 4.21 - 5.7 7 m/uL [facility] RBC (Bld) [#/Vol] ANISOCYTOSIS PRESENT [facility] Comment on above: MICROCYTOSIS PRESENT Segmented neutrophils/100 WBC (Bld) 78 % High 36 - 65 % [facility] Segs Absolute 7.08 [facility] h WBC (Bld) [#/Vol] 9.1 10*3/uL [facility] WBC (Bld) [#/Vol] NOT REPORTED [facility] D-Dimer, Quantitativeon 02 D-Dimer, Quant 2.63 mg/L FEU [facility] Comment on above: When combined with a low clinical probability, a D dimer value of <0.50 mg/L FEU is considered negative for DVT and PE (negative predictive value of 98%, sensitivity of 97%). If this test is not being used to help rule out DVT and PE, then the following reference range should be utilized: 0.00 - 1.02 mg/L FEU. The [employer] D-Dimer assay is intended for use as [...] more prevalent in patients with distal DVT. [facility] Immature Platelet Fractionon 12-13-2021 Interpretation and review of laboratory results Abnormal [facility] Platelet, Fluorescence 112 Low Me [facility] Platelet, Immature Fraction 3.4 % 1.1 - 10.3 % [facility] Magnesiumon 12-13-2021 Magnesium [Mass/Vol] 1.9 mg/dL 1.6 - 2 .6 mg/dL [facility] No Panel Informationon 12-13 Left [...] of insertion of Achillis tendon to calcaneus. [facility] Akanksha Samuels MD - 12/13/2021 [...] of insertion of Achillis tendon to calcaneus. [employer] Work Phone: Radiology Study observation (narrative) [employer] Work Phone: No Panel InformationOrdered By: Akanksha Santoro on 12-13-2021 [facility] Work Phone: PROF CHEM 8 (BAS METB)on Anion gap [Moles/Vol] 9.4 mmol/L Normal [facility] Comment on above: Performed By: #### B MP #### [facility] [address] [place] [address] Dr. Amanda Cottrell Calcium [Mass/Vol] 7.4 mg/dL Critically low 8.4-10.2 Th e [facility] Comment on above: Performed By: #### B MP #### [facility] [address] [address] [address] Amanda Cottrell Chloride [Moles/Vol] 102 mmol/L Normal 98-107 [facility] Comment on above: Performed By: #### B MP #### [facility] [address] [address] [address] Amanda Cottrell CO2 [Moles/Vol] 24.8 mmol/L Normal 22.0-30.0 [facility] Comment on above: Performed By: #### B MP #### [facility] [address] [address] [address] Amanda Cottrell Creatinine [Mass/Vol] 0.65 mg/dL Critically low 0.66-1.25 [facility] Comment on above: Performed By: #### B MP #### [facility] [address] [address] [address] Amanda Cottrell EGFR-AF POLISH >60 Normal >=60 [facility] Comment on above: Performed By: #### B MP #### [facility] [address] [address] [address] Amanda Cottrell EGFR-NON AF POLISH >60 Normal >=60 [facility] Comment on above: Performed By: #### B MP #### [facility] [address] [place] [address] Dr. Amanda Cottrell Glucose [Mass/Vol] 115 mg/dL Critically high 74-106 [facility] Comment on above: Performed By: #### B MP #### [facility] [address] [address] [address] Amanda Cottrell Potassium [Moles/Vol] 3.2 mmol/L Critically low 3.4-5.0 [facility] Comment on above: Performed By: #### B MP #### [facility] [address] [address] [address] Amanda Cottrell Sodium [Moles/Vol] 133 mmol/L Critically low 137-145 [facility] [place] Comment on above: Performed By: #### B MP #### [facility] [address] [address] [address] Amanda Cottrell Urea nitrogen [Mass/Vol] 9.0 mg/dL Normal 9.0-20.0 [facility] Comment on above: Performed By: #### B MP #### [facility] [address] [address] [address] Amanda Cottrell Urea nitrogen/Creatinine [Mass ratio] 13.8 mg/mg Normal [facility] Comment on above: Performed By: #### B MP #### [facility] [address] [address] [address] Amanda Cottrell SPECIMEN REJECTIONon 022 - NOT REPORTED [facility] Ordered Test DIGNA,CHANO [facility] Reason for Rejection Unable to perform testing: Specimen clotted. [facility] Specimen source Nom (Unsp spec) .BLOOD [facility] Troponinon 12-13-2021 Troponin Interp NOT REPORTED [facility] ealt Troponin T NOT REPORTED <0.03 ng/mL [facility] Troponin, High Sensitivity <6 0 - 22 ng/L [facility] Comment on above: High Sensitivity Troponin values cannot be compared with other Troponin methodologies. Patients with high levels of Biotin oral intake (i.e >5mg/day) may have falsely decreased Troponin levels. Samples collected within 8 hours of biotin intake may require additional information for diagnosis. [facility] VANCOMYCIN TROUGHon 12-13-19 22 VANCOMYCIN TROUGH 9.8 ug/ml Normal 5.0-20.0 [facility] Comment on above: Performed By: #### V ANCT #### [facility] [address] [address] [address] Amanda Cottrell CBC W MANUAL DIFFon 12-12-19 22 ANISOCYTOSIS 1+ Normal [facility] Comment on above: Performed By: #### C BCMAN #### [facility] [address] [address] [address] Amanda Cottrell ATYPICAL LYMPH # Normal [facility] Comment on above: Performed By: #### C BCMAN #### [facility] [address] [id number] Amanda Cottrell ATYPICAL LYMPH % Normal [facility] Comment on above: Performed By: #### C BCMAN #### [facility] [address] [place] [address] Dr. Amanda Cottrell BAND # 0.7 103/ul Critically high 0.0-0.[address] [facility] Comment on above: Performed By: #### C BCMACY #### [facility] [address] [place] [address] Dr. Amanda Cottrell BAND % 8 % Critically high 0-[address] [facility] Comment on above: Performed By: #### C MELCHOR #### [facility] [address] [place] [address] Dr. Amanda Cottrell BASOM # 0.00 103/ul Normal 0.00-0.10 [facility] Comment on above: Performed By: #### C MELCHOR #### [facility] [address] [place] [address] Dr. Amanda Cottrell BASOM % 0.0 % Critically low 0.2-2.0 [facility] Comment on above: Performed By: #### C MELCHOR #### [facility] [address] [place] [address] Dr. Amanda Cottrell BLAST # Normal [facility] Comment on above: Performed By: #### C MELCHOR #### [facility] [address] [place] [address] Dr. Amanda Cottrell BLAST % Normal [facility] Comment on above: Performed By: #### C MELCHOR #### [facility] [address] [place] [address] Dr. Amanda Cottrell CORRECTED WBC Normal 4.0-11.0 [facility] Comment on above: Performed By: #### C MELCHOR #### [facility] [address] [place] [address] Dr. Amanda Cottrell EOS # 0.00 103/ul Normal 0.00-0.70 [facility] Comment on above: Performed By: #### C MELCHOR #### [facility] [address] [place] [address] Dr. Amanda Cottrell EOS% 0.0 % Critically low 0.9-7.0 [facility] Comment on above: Performed By: #### C MELCHOR #### [facility] [address] [address] [address] Amanda Cottrell HCT 28.7 % Critically low 42.0-54.0 [facility] Comment on above: Performed By: #### C MELCHOR #### [facility] [address] [address] [address] Amanda Cottrell HGB 9.5 g/dl Critically low 14.0-18.0 [facility] Comment on above: Performed By: #### C MELCHOR #### [facility] [address] [address] [address] Amanda Cottrell LYMPHM # 0.49 103/ul Critically low 1.20-3.80 [facility] Comment on above: Performed By: #### C MELCHOR #### [facility] [address] [place] [address] Dr. Amanda Cottrell LYMPHM% 6.0 % Critically low 20.5-60.0 [facility] Comment on above: Performed By: #### C MELCHOR #### [facility] [address] [address] [address] Amanda Cottrell MCH 27.4 pg Normal 25.9-34.0 [facility] Comment on above: Performed By: #### C MELCHOR #### [facility] [address] [place] [address] Dr. Amanda Cottrell MCHC 33.1 g/dl Normal 29.9-35.2 [facility] Comment on above: Performed By: #### C MELCHOR #### [facility] [address] [place] [address] Dr. Amanda Cottrell MCV 82.7 fL Normal 80.0-94.0 [facility] Comment on above: Performed By: #### C MELCHOR #### [facility] [address] [place] [address] Dr. Amanda Cottrell METAMYELOCYTE # Normal [facility] Comment on above: Performed By: #### C MELCHOR #### [facility] [address] [address] [address] Amanda Cottrell METAMYELOCYTE % Normal [facility] Comment on above: Performed By: #### C MELCHOR #### [facility] [address] [address] [address] Amanda Cottrell MONOM# 0.74 103/ul Normal 0.30-0.80 [facility] Comment on above: Performed By: #### C MELCHOR #### [facility] [address] [address] [address] Amanda Cottrell MONOM% 9.0 % Normal 1.7-12.0 [facility] Comment on above: Performed By: #### C MELCHOR #### [facility] [address] [address] [address] Amanda Cottrell MPV 10.5 fL Normal 9.5-13.5 [facility] Comment on above: Performed By: #### C MELCHOR #### [facility] [address] [place] [address] Dr. Amanda Cottrell MYELOCYTE # Normal [facility] Comment on above: Performed By: #### C MELCHOR #### [facility] [address] [address] [address] Amanda Cottrell MYELOCYTE % Normal [facility] Comment on above: Performed By: #### C MELCHOR #### [facility] [facility] [address] [address] [address] Amanda Cottrell NRBC Normal [facility] Comment on above: Performed By: #### C MELCHOR #### [facility] [address] [place] [address] Dr. Amanda Cottrell PLT 95 103/ul Critically low 150-450 [facility] Comment on above: Performed By: #### C MELCHOR #### [facility] [address] [address] [address] Amanda Cottrell RBC 3.47 106/ul Critically low 4.70-6.[address] [facility] Comment on above: Performed By: #### C MELCHOR #### [facility] [address] [place] [address] Dr. Amanda Cottrell RDW 14.3 % Normal 11.0-15.0 [facility] Comment on above: Performed By: #### C BCMAN #### [facility] [address] [place], [place] [address] Dr. Amanda Cottrell SEG # 6.31 103/ul Normal 1.40-6.50 [facility] Comment on above: Performed By: #### C BCMAN #### [facility] [address] [place], [place] [address] Dr. Amanda Cottrell SEG % 77.0 % Critically high 43.0-75.0 [facility] Comment on above: Performed By: #### C BCMAN #### [facility] [address] [place], [place] [address] Dr. Amanda Cottrell WBC 8.2 103/ul Normal 4.0-11.0 [facility] Comment on above: Performed By: #### C BCMAN #### [facility] [address] [place], [place] [address] Dr. Amanda Cottrell ECHO LIMITED STUDYon 022 ECHO LIMITED STUDY Patient: TIP ANSARI Exam Date: 12/12/2021 : 1980 Gender:M Ordering : DR EMY REBOLLEDO . Admission #: [id number] Family : Order #: [id number] CLICK HERE TO VIEW EXAM ECHOCARDIOGRAM REPORT [...] Moyer M.D. on 12/12/2021 at 16:15 Normal [facility] PROF 14(COMP METB)on 022 Albumin [Mass/Vol] 1.6 g/dL Critically low 3.5-5.0 [facility] [place] Comment on above: Performed By: #### V ANCT #### [facility] [address] [place] [address] Dr. Amadna Cottrell Albumin/Globulin [Mass ratio] 0.4 {ratio} Normal [facility] Comment on above: Performed By: #### V ANCT #### [facility] [address] [place] [address] Dr. Amanda Cottrell ALP [Catalytic activity/Vol] 71 U/L Normal 38-126 [facility] Comment on above: Performed By: #### V ANCT #### [facility] [address] [place] [address] Dr. Amanda Cottrell ALT [Catalytic activity/Vol] 30 U/L Normal 21-72 [facility] Comment on above: Performed By: #### V ANCT #### [facility] [address] [place] [address] Dr. Amanda Cottrell Anion gap [Moles/Vol] 10.0 mmol/L Normal [facility] Comment on above: Performed By: #### V ANCT #### [facility] [address] [place] [address] Dr. Amanda Cottrell AST [Catalytic activity/Vol] 21 U/L Normal 17-59 [facility] Comment on above: Performed By: #### V ANCT #### [facility] [address] [place] [address] Dr. Amanda Cottrell Bilirubin [Mass/Vol] 0.7 mg/dL Normal 0.2-1.3 [facility] Comment on above: Performed By: #### V ANCT #### [facility] [address] [place] [address] Dr. Amanda Cottrell Calcium [Mass/Vol] 7.8 mg/dL Critically low 8.4-10.2 [facility] [place] Comment on above: Performed By: #### V ANCT #### [facility] [address] [address] [address] Amanda Cottrell Chloride [Moles/Vol] 100 mmol/L Normal 98-107 [facility] Comment on above: Performed By: #### V ANCT #### [facility] [address] [address] [address] Amanda Cottrell CO2 [Moles/Vol] 23.1 mmol/L Normal 22.0-30.0 [facility] Comment on above: Performed By: #### V ANCT #### [facility] [address] [address] [address] Amanda Cottrell Creatinine [Mass/Vol] 0.67 mg/dL Normal 0.66-1.25 [facility] Comment on above: Performed By: #### V ANCT #### [facility] [address] [place] [address] Dr. Amanda Cottrell EGFR-AF POLISH >60 Normal >=60 [facility] Comment on above: Performed By: #### V ANCT #### [facility] [address] [address] [address] Amanda Cottrell EGFR-NON AF POLISH >60 Normal >=60 [facility] Comment on above: Performed By: #### V ANCT #### [facility] [address] [place] [address] Dr. Amanda Cottrell Globulin (S) [Mass/Vol] 3.8 g/dL Normal [facility] Comment on above: Performed By: #### V ANCT #### [facility] [address] [place] [address] Dr. Amanda Cottrell Glucose [Mass/Vol] 113 mg/dL Critically high 74-106 [facility] Comment on above: Performed By: #### V ANCT #### [facility] [address] [address] [address] Amanda Cottrell Potassium [Moles/Vol] 3.1 mmol/L Critically low 3.4-5.0 [facility] Comment on above: Performed By: #### V ANCT #### [facility] [address] [address] [address] Amanda Cottrell Protein [Mass/Vol] 5.4 g/dL Critically low 6.1-8.2 [facility] [place] Comment on above: Performed By: #### V ANCT #### [facility] [address] [address] [address] Amanda Cottrell Sodium [Moles/Vol] 130 mmol/L Critically low 137-145 [facility] [place] Comment on above: Performed By: #### V ANCT #### [facility] [address] [address] [address] Amanda Cottrell Urea nitrogen [Mass/Vol] 12.0 mg/dL Normal 9.0-20.0 [facility] Comment on above: Performed By: #### V ANCT #### [facility] [address] [place] [address] Dr. Amanda Cottrell Urea nitrogen/Creatinine [Mass ratio] 17.9 mg/mg Normal [facility] Comment on above: Performed By: #### V ANCT #### [facility] [address] [place] [address] Dr. Amanda Cottrell XR CHEST 1 Von [...] by: JOELLE MEDEIROS Date: 2021-12-12 12:09 Normal [facility] BLOOD CULTURE ID PANELon Bottle Set: Set 1 Normal [facility] Comment on above: Performed By: #### V ANCT #### [facility] [address] [place] [address] Dr. Amanda Cottrell BLOOD CULTURE ID PANEL SUBSE Kory 12-11-2021 A. baumannii Not detected [facility] Comment on above: Performed By: #### B CIDSUB #### [facility] [address] [place] [address] Dr. Amanda Cottrell Performed By: #### V ANCT #### [facility] [address] [place] [address] Dr. Amanda Cottrell BCID CONTROLS PASSED Normal [facility] Comment on above: Performed By: #### B CIDSUB #### [facility] [address] [place] [address] Dr. Amanda Cottrell Performed By: #### V ANCT #### [facility] [address] [place] [address] Dr. Amanda Cottrell BCIDBTHD BLOOD CULTURE BOTTLE INFORMATION Normal [facility] Comment on above: Performed By: #### B CIDSUB #### [facility] [address] [place] [address] Dr. Amanda Cottrell Performed By: #### V ANCT #### [facility] [address] [place] [address] Dr. Amanda Cottrell BCIDHD1 ANTIMICROBIAL RESISTANCE GENES [facility] Comment on above: Performed By: #### B CIDSUB #### [facility] [address] [place] [address] Dr. Amanda Cottrell Performed By: #### V ANCT #### [facility] [address] [place] [address] Dr. Amanda Cottrell BCIDHD2 SEE BELOW [facility] Comment on above: Result Comment: KPC- carbapenem resistance gene, mecA- methecillin resistance gene, van A/B- vancomycin resistance gene Note: Antimicrobial resitance can occur via multiple mechanisms. A Not Detected result for the Film[employer] antomicrobial resistance gene assays does not indicate antimicrobial susceptibility. Subculturing is required for specis identificationand susceptibility testing of isolates. Performed By: #### B CIDSUB #### [facility] [address] [place] [address] Dr. Amanda Cottrell Performed By: #### V ANCT #### [facility] [address] [address] [address] Amanda Cottrell BCIDHD3 Positive [facility] Comment on above: Performed By: #### B CIDSUB #### [facility] [address] [address] [address] Amanda Cottrell Performed By: #### V ANCT #### [facility] [address] [address] [address] Amanda Cottrell BCIDHD4 Negative [facility] Comment on above: Performed By: #### B CIDSUB #### [facility] [address] [address] [address] Amanda Cottrell Performed By: #### V ANCT #### [facility] [address] [place] [address] Dr. Amanda Cottrell BCIDHD5 YEAST Normal [facility] Comment on above: Performed By: #### B CIDSUB #### [facility] [address] [place] [address] Dr. Amanda Cottrell Performed By: #### V ANCT #### [facility] [address] [place] [address] Dr. Amanda Cottrell BCIDHD6 SEE BELOW [facility] Comment on above: Result Comment: Note : All genus and species BCID [employer] results will be verified post subculturing via Maldi-Tof MS testing methodology. Performed By: #### B CIDSUB #### [facility] [address] [address] [address] Amanda Cottrell Performed By: #### V ANCT #### [facility] [address] [place] [address] Dr. Amanda Cottrell Bottle Set: Set 2 [facility] Comment on above: Performed By: #### B CIDSUB #### [facility] [address] [place] [address] Dr. Amanda Cottrell Bottle: Aerobic [facility] Comment on above: Performed By: #### B CIDSUB #### [facility] [address] [address] [address] Amanda Cottrell Performed By: #### V ANCT #### [facility] [address] [place] [address] Dr. Amanda Cottrell Bottle: Anaerobic Normal [facility] Comment on above: Performed By: #### B CIDSUB #### [facility] [address] [place] [address] Dr. Amanda Cottrell Nathaniel albicans Not detected Normal [facility] Comment on above: Performed By: #### B CIDSUB #### [facility] [address] [place] [address] Dr. Amanda Cottrell Performed By: #### V ANCT #### [facility] [address] [place] [address] Dr. Amanda Cottrell Nathaniel glabrata Not detected Normal [facility] Comment on above: Performed By: #### B CIDSUB #### [facility] [address] [place] [address] Dr. Amanda Cottrell Performed By: #### V ANCT #### [facility] [address] [place] [address] Dr. Amanda Cottrell Nathaniel Krusei Not detected Normal [facility] Comment on above: Performed By: #### B CIDSUB #### [facility] [address] [place] [address] Dr. Amanda Cottrell Performed By: #### V ANCT #### [facility] [address] [place] [address] Dr. Amanda Cottrell Nathaniel Parapsilosis Not detected Normal [facility] Comment on above: Performed By: #### B CIDSUB #### [facility] [address] [place] [address] Dr. Amanda Cottrell Performed By: #### V ANCT #### [facility] [address] [place] [address] Dr. Amanda Cottrell Nathaniel Tropicalis Not detected Normal [facility] Comment on above: Performed By: #### B CIDSUB #### [facility] [address] [place] [address] Dr. Amanda Cottrell Performed By: #### V ANCT #### [facility] [address] [address] [address] Amanda Cottrell E. Cloacae complex Not detected Normal [facility] Comment on above: Performed By: #### B CIDSUB #### [facility] [address] [address] [address] Amanda Cottrell Performed By: #### V ANCT #### [facility] [address] [place] [address] Dr. Amanda Cottrell Enterobacteriaceae Not detected Normal [facility] Comment on above: Performed By: #### B CIDSUB #### [facility] [address] [address] [address] Amanda Cottrell Performed By: #### V ANCT #### [facility] [address] [place] [address] Dr. Amanda Cottrell Enterococcus Not detected Normal [facility] Comment on above: Performed By: #### B CIDSUB #### [facility] [address] [place] [address] Dr. Amanda Cottrell Performed By: #### V ANCT #### [facility] [address] [place] [address] Dr. Amanda Cottrell Escheria coli Not detected Normal [facility] Comment on above: Performed By: #### B CIDSUB #### [facility] [address] [place] [address] Dr. Amanda Cottrell Performed By: #### V ANCT #### [facility] [address] [place] [address] Dr. Amanda Cottrell K. oxytoca Not detected Normal [facility] Comment on above: Performed By: #### B CIDSUB #### [facility] [address] [address] [address] Amanda Cottrell Performed By: #### V ANCT #### [facility] [address] [place] [address] Dr. Amanda Cottrell K. pneumoniae Not detected Normal [facility] Comment on above: Performed By: #### B CIDSUB #### [facility] [address] [place] [address] Dr. Amanda Cottrell Performed By: #### V ANCT #### [facility] [address] [place] [address] Dr. Amanda Cottrell KPC Resistant Gene Not Applicable Normal [facility] [place] Comment on above: Performed By: #### B CIDSUB #### [facility] [address] [place] [address] Dr. Amanda Cottrell Performed By: #### V ANCT #### [facility] [address] [place] [address] Dr. Amanda Cottrell List. monocytogenes Not detected Normal [facility] Comment on above: Performed By: #### B CIDSUB #### [facility] [address] [place] [address] Dr. Amanda Cottrell Performed By: #### V ANCT #### [facility] [address] [place] [address] Dr. Amanda Cottrell mecA Resistant Gene Detected Critically abnormal [facility] Comment on above: Performed By: #### B CIDSUB #### [facility] [address] [place] [address] Dr. Amanda Cottrell Performed By: #### V ANCT #### [facility] [address] [place] [address] Dr. Amanda Cottrell Proteus Not detected Normal [facility] Comment on above: Performed By: #### B CIDSUB #### [facility] [address] [place] [address] Dr. Amanda Cottrell Performed By: #### V ANCT #### [facility] [address] [place] [address] Dr. Amanda Cottrell Pseud. aeruginosa Not detected Normal [facility] Comment on above: Performed By: #### B CIDSUB #### [facility] [address] [place] [address] Dr. Amanda Cottrell Performed By: #### V ANCT #### [facility] [address] [place] [address] Dr. Amanda Cottrell Seratia marcescens Not detected Normal [facility] Comment on above: Performed By: #### B CIDSUB #### [facility] [address] [address] [address] Amanda Cottrell Performed By: #### V ANCT #### [facility] [address] [place] [address] Dr. Amanda Cottrell Site: LEFT HAND Normal [facility] Comment on above: Performed By: #### B CIDSUB #### [facility] [address] [place] [address] Dr. Amanda Cottrell Site: L WRIST Normal [facility] Comment on above: Performed By: #### B CIDSUB #### [facility] [address] [address] [address] Amanda Cottrell Performed By: #### V ANCT #### [facility] [address] [place] [address] Dr. Amanda Cottrell Site: L HAND Normal [facility] Comment on above: Performed By: #### B CIDSUB #### [facility] [address] [place] [address] Dr. Amanda Cottrell Staph. aureus Detected Critically abnormal [facility] Comment on above: Performed By: #### B CIDSUB #### [facility] [address] [place] [address] Dr. Amanda Cottrell Performed By: #### V ANCT #### [facility] [address] [place] [address] Dr. Amanda Cottrell Staphylococcus Detected Critically abnormal [facility] Comment on above: Performed By: #### B CIDSUB #### [facility] [address] [place] [address] Dr. Amanda Cottrell Performed By: #### V ANCT #### [facility] [address] [place] [address] Dr. Amanda Cottrell Strep. agalactiae Not detected Normal [facility] Comment on above: Performed By: #### B CIDSUB #### [facility] [address] [place] [address] Dr. Amanda Cottrell Performed By: #### V ANCT #### [facility] [address] [place] [address] Dr. Amanda Cottrell Strep. pneumoniae Not detected Normal [facility] Comment on above: Performed By: #### B CIDSUB #### [facility] [address] [place] [address] Dr. Amanda Cottrell Performed By: #### V ANCT #### [facility] [address] [place] [address] Dr. Amanda Cottrell Strep. pyogenes Not detected Normal [facility] Comment on above: Performed By: #### B CIDSUB #### [facility] [address] [place] [address] Dr. Amanda Cottrell Performed By: #### V ANCT #### [facility] [address] [place] [address] Dr. Amanda Cottrell Streptococcus Not detected Normal [facility] Comment on above: Performed By: #### B CIDSUB #### [facility] [address] [place] [address] Dr. Amanda Cottrell Performed By: #### V ANCT #### [facility] [address] [place] [address] Dr. Amanda Lux/Esdras Resist. Gene Not Applicable Normal [facility] Comment on above: Performed By: #### B CIDSUB #### [facility] [address] [place] [address] Dr. Amanda Cottrell Performed By: #### V ANCT #### [facility] [address] [place] [address] Dr. Amanda Cottrell CBC AUTO DIFFon 12-11-2021 BASO # 0.0 103/ul Normal 0.0-0.1 [facility] Comment on above: Performed By: #### C BC #### [facility] [address] [place] [address] Dr. Amanda Cottrell Basophils/100 WBC (Bld) 0.2 % Normal 0.2-2.0 [facility] Comment on above: Performed By: #### C BC #### [facility] [address] [place] [address] Dr. Amanda Cottrell EO # 0.0 103/ul Normal 0.0-0.7 [facility] Comment on above: Performed By: #### C BC #### [facility] [address] [place] [address] Dr. Amanda Cottrell Eosinophils/100 WBC (Bld) 0.1 % Critically low 0.9-7.0 [facility] Comment on above: Performed By: #### C BC #### [facility] [address] [place] [address] Dr. Amanda Cottrell Erythrocyte distribution width (RBC) [Ratio] 14.2 % Normal 11.0-15.0 [facility] Comment on above: Performed By: #### C BC #### [facility] [address] [place] [address] Dr. Amanda Cottrell Hematocrit (Bld) [Volume fraction] 34.2 % Critically low 42.0-54.0 [facility] Comment on above: Performed By: #### C BC #### [facility] [address] [place] [address] Dr. Amanda Cottrell Hemoglobin (Bld) [Mass/Vol] 11.9 g/dL Critically low 14.0-18.0 [facility] Comment on above: Performed By: #### C BC #### [facility] [address] [place] [address] Dr. Amanda Cottrell IG # 0.15 10e3/ul Critically high 0.00-0.03 [facility] Comment on above: Performed By: #### C BC #### [facility] [address] [place] [address] Dr. Amanda Cottrell IG % 1.2 % Critically high 0.0-0.5 [facility] Comment on above: Performed By: #### C BC #### [facility] [address] [place] [address] Dr. Amanda Cottrell LYMPH # 0.6 103/ul Critically low 1.2-3.8 [facility] Comment on above: Performed By: #### C BC #### [facility] [address] [place] [address] Dr. Amanda Cottrell Lymphocytes/100 WBC (Bld) 4.5 % Critically low 20.5-60.0 [facility] Comment on above: Performed By: #### C BC #### [facility] [address] [place] [address] Dr. Amanda Cottrell MANUAL DIFF REQ NO Normal [facility] Comment on above: Performed By: #### C BC #### [facility] [address] [place] [address] Dr. Amanda Cottrell MCH (RBC) [Entitic mass] 28.1 pg Normal 25.9-34.0 [facility] Comment on above: Performed By: #### C BC #### [facility] [address] [place] [address] Dr. Amanda Cottrell MCHC (RBC) [Mass/Vol] 34.8 g/dL Normal 29.9-35.2 [facility] Comment on above: Performed By: #### C BC #### [facility] [address] [place] [address] Dr. Amanda Cottrell MCV (RBC) [Entitic vol] 80.9 fL Normal 80.0-94.0 [facility] Comment on above: Performed By: #### C BC #### [facility] [address] [place] [address] Dr. Amanda Cottrell MONO # 0.9 103/ul Critically high 0.3-0.8 [facility] Comment on above: Performed By: #### C BC #### [facility] [address] [place] [address] Dr. Amanda Cottrell Monocytes/100 WBC (Bld) 6.8 % Normal 1.7-12.0 [facility] Comment on above: Performed By: #### C BC #### [facility] [address] [place] [address] Dr. Amanda Cottrell NEUT # 11.0 103/ul Critically high 1.4-6.5 [facility] Comment on above: Performed By: #### C BC #### [facility] [address] [place] [address] Dr. Amanda Cottrell Neutrophils/100 WBC (Bld) 87.2 % Critically high 43.0-75.0 [facility] Comment on above: Performed By: #### C BC #### [facility] [address] [address] [address] Amanda Cottrell Platelet mean volume (Bld) [Entitic vol] 10.6 fL Normal 9.5-13.5 [facility] Comment on above: Performed By: #### C BC #### [facility] [id number] Amanda Cottrell PLT 144 103/ul Critically low 150-450 [facility] Comment on above: Performed By: #### C BC #### [facility] [id number] Amanda Cottrell RBC 4.23 106/ul Critically low 4.70-6.10 [facility] Comment on above: Performed By: #### C BC #### [facility] [id number] Amanda Cottrell WBC 12.6 103/ul Critically high 4.0-11.0 [facility] Comment on above: Performed By: #### C BC #### [facility] [id number] Amanda Cottrell CT CHEST WO CONon [...] RAFAEL ALONSO Date: 2021-12-11 18:07 Normal [facility] CULTURE BLOODon 12-11-2021 Microscopic examination of blood, culture Specimen Comments: LEFT HAND Culture Observations: S.aureus in aerobic and anaerobic bottles.See#[id number] for ASTs. Isolate 1 Staphylococcus aureus Growth of Normal [facility] Comment on above: Performed By: #### C MELCHOR #### [facility] [address] [address] [address] Amanda Cottrell CULTURE STOOLon 12-11-2021 CULTURE STOOL Culture Observations : NO GROWTH SALMONELLA, SHIGELLA, YERSINIA, CAMPY, E.COLI 0157, OR STAPH AT 72 HRS Normal The [facility] Comment on above: Performed By: #### C MELCHOR #### [facility] [address] [address] [address] Amanda Cottrell Covid-19 PCR (CVDTB)on 11-13 SARS-CoV-2 (COVID-19) RNA CHARO+probe Ql (Unsp spec) Not detected Normal NOT DETECTED [facility] Comment on above: Result Comment: This test is not yet approved or cleared by the [place] FDA. When there are no FDA-approved or cleared tests available, and other criteria are met, FDA can make tests available under an emergency access mechanism called an Emergency Use Authorization (EUA). The EUA for this test is supported by the [place] of Health and Human Service's (HHS's) declaration [...] SARS-CoV-2. Performed By: #### C BCMAN #### [facility] [address] [place] [address] Dr. Amanda Cottrell DRUG SCREEN RAPID (URINE)on 12-11-2021 AMP Positive Abnormal NEGATIVE [facility] Comment on above: Performed By: #### D RUGRPD #### [facility] [address] [place] [address] Dr. Amanda Cottrell BAR Negative Normal NEGATIVE [facility] Comment on above: Performed By: #### D RUGRPD #### [facility] [address] [place] [address] Dr. Amanda Cottrell BUP Negative Normal NEGATIVE [facility] Comment on above: Performed By: #### D RUGRPD #### [facility] [address] [place] [address] Dr. Amanda Cottrell BZO Negative Normal NEGATIVE [facility] Comment on above: Performed By: #### D RUGRPD #### [facility] [address] [place] [address] Dr. Amanda Cottrell CARLINE Negative Normal NEGATIVE [facility] Comment on above: Performed By: #### D RUGRPD #### [facility] [address] [place] [address] Dr. Amanda Cottrell CUT-OFFS SEE BELOW Normal [facility] Comment on above: Result Comment: AMP (Amphetamine): 500ng/mL, BAR (Barbituates): 200 ng/mL, BZO (Benzodiazepines): 150 ng/mL, BUP (Buprenorphine): 10 ng/mL, CARLINE (Cocaine): 150 ng/mL, mAMP (Methamphetamine): 500 ng/mL, MTD (Methadone): 200 ng/mL, OPI (Opiates): 100 ng/mL, OXY (Oxycodone): 100 ng/mL, PCP (Phencyclidine): 25 ng/mL, PPX (Propoxyphene): 300 ng/mL, THC (Cannabinoids): 50 ng/mL, TCA (Trycyclic Antidepressants): 300 ng/mL Performed By: #### D RUGRPD #### [facility] [address] [place] [address] Dr. Amanda Cottrell DRUG CUT HEADER DRUG CLASS TEST SYSTEM CUT-OFF CONCENTRATIONS ARE FOLLOWS: Normal [facility] Comment on above: Performed By: #### D RUGRPD #### [facility] [address] [place] [address] Dr. Amanda Cottrell mAMP Positive Abnormal NEGATIVE [facility] Comment on above: Performed By: #### D RUGRPD #### [facility] [address] [place] [address] Dr. Amanda Cottrell MTD Negative Normal NEGATIVE [facility] Comment on above: Performed By: #### D RUGRPD #### [facility] [address] [place] [address] Dr. Amanda Cottrell OPI Negative Normal NEGATIVE [facility] Comment on above: Performed By: #### D RUGRPD #### [facility] [address] [place] [address] Dr. Amanda Cottrell OXY Negative Normal NEGATIVE [facility] Comment on above: Performed By: #### D RUGRPD #### [facility] [address] [place] [address] Dr. Amanda Cottrell PCP Negative Normal NEGATIVE [facility] Comment on above: Performed By: #### D RUGRPD #### [facility] [address] [place] [address] Dr. Amanda Cottrell PPX Negative Normal NEGATIVE [facility] Comment on above: Performed By: #### D RUGRPD #### [facility] [address] [place] [address] Dr. Amanda Cottrell TCA Negative Normal NEGATIVE [facility] Comment on above: Performed By: #### D RUGRPD #### [facility] [address] [place] [address] Dr. Amanda Cottrell THC Positive Abnormal NEGATIVE [facility] Comment on above: Performed By: #### D RUGRPD #### [facility] [address] [place] [address] Dr. Amanda Cottrell GI PANEL (PCR)on 12-11-2021 Adenovirus F 40/41 Not detected Normal NOT DETECTED [facility] [place] Comment on above: Performed By: #### V ANCT #### [facility] [address] [place] [address] Dr. Amanda Cottrell Astrovirus Not detected Normal NOT DETECTED [facility] Comment on above: Performed By: #### V ANCT #### [facility] [address] [place] [address] Dr. Amanda Cottrell C. Diff toxin A/B Not detected Normal NOT DETECTED [facility] Comment on above: Performed By: #### V ANCT #### [facility] [address] [place] [address] Dr. Amanda Cottrell Campylobacter Not detected Normal NOT DETECTED [facility] Comment on above: Performed By: #### V ANCT #### [facility] [address] [place] [address] Dr. Amanda Cottrell Cryptosporidium Not detected Normal NOT DETECTED [facility] Comment on above: Performed By: #### V ANCT #### [facility] [address] [place] [address] Dr. Amanda Cottrell Cyclos. Cayetanensis Not detected Normal NOT DETECTED [facility] Comment on above: Performed By: #### V ANCT #### [facility] [address] [place] [address] Dr. Amanda Cottrell E. Coli O157 Not Applicable Normal Not Applicable [facility] Comment on above: Performed By: #### V ANCT #### [facility] [address] [place] [address] Dr. Amanda Cottrell E. histolytica Not detected Normal NOT DETECTED The [facility] Comment on above: Performed By: #### V ANCT #### [facility] [address] [place] [address] Dr. Amanda Cottrell EAEC Not detected Normal NOT DETECTED [facility] Comment on above: Performed By: #### V ANCT #### [facility] [address] [place] [address] Dr. Amanda Cottrell EIEC Not detected Normal NOT DETECTED [facility] Comment on above: Performed By: #### V ANCT #### [facility] [address] [place] [address] Dr. Amanda Cottrell EPEC Not detected Normal NOT DETECTED [facility] Comment on above: Performed By: #### V ANCT #### [facility] [address] [place] [address] Dr. Amanda Cottrell ETEC Not detected Normal NOT DETECTED [facility] Comment on above: Performed By: #### V ANCT #### [facility] [address] [place] [address] Dr. Amanda Sy Lamblia Not detected Normal NOT DETECTED [facility] Comment on above: Performed By: #### V ANCT #### [facility] [address] [place] [address] Dr. Amanda DUQUE CONTROLS PASSED Normal The [facility] Comment on above: Performed By: #### V ANCT #### [facility] [address] [place] [address] Dr. Amanda ANDREW HEADER GI PANEL BACTERIA Normal [facility] Comment on above: Performed By: #### V ANCT #### [facility] [address] [place] [address] Dr. Amanda RUIZ ECOLI GI PANEL DIARRHEAGENIC E.COLI / SHIGELLA Normal [facility] Comment on above: Performed By: #### V ANCT #### [facility] [address] [place] [address] Dr. Amanda RUIZ INFO SEE BELOW Normal [facility] Comment on above: Result Comment: EAEC - Enteroaggregative E. Coli EPEC- Enteropathogenic E. Coli ETEC- Enterotoxigenic E. Coli lt/st STEC- Shigella-like toxin-producing E. Coli stx1/stx2 EIEC- Shigella/Enteroinvasive E. Coli Performed By: #### V ANCT #### [facility] [address] [place] [address] Dr. Amanda RUIZ PARASITES GI PANEL PARASITES Normal [facility] Comment on above: Performed By: #### V ANCT #### [facility] [address] [place] [address] Dr. Amanda RUIZ VIRUS GI PANEL VIRUSES Normal [facility] Comment on above: Performed By: #### V ANCT #### [facility] [address] [place] [address] Dr. Amanda Cottrell Norovirus GI/GII Not detected Normal NOT DETECTED [facility] Comment on above: Performed By: #### V ANCT #### [facility] [address] [place] [address] Dr. Amanda Cottrell P. Shigelloides Not detected Normal NOT DETECTED [facility] Comment on above: Performed By: #### V ANCT #### [facility] [address] [place] [address] Dr. Amanda Cottrell Rotavirus A Not detected Normal NOT DETECTED [facility] Comment on above: Performed By: #### V ANCT #### [facility] [address] [place] [address] Dr. Amanda Cottrell Salmonella Not detected Normal NOT DETECTED [facility] Comment on above: Performed By: #### V ANCT #### [facility] [address] [place] [address] Dr. Amanda Cottrell Sapovirus Not detected Normal NOT DETECTED [facility] Comment on above: Performed By: #### V ANCT #### [facility] [address] [place] [address] Dr. Amanda Cottrell STEC Not detected Normal NOT DETECTED [facility] Comment on above: Performed By: #### V ANCT #### [facility] [address] [place] [address] Dr. Amanda Cottrell Vibrio Not detected Normal NOT DETECTED [facility] Comment on above: Performed By: #### V ANCT #### [facility] [address] [place] [address] Dr. Amanda Cottrell Vibrio Cholera Not detected Normal NOT DETECTED [facility] Comment on above: Performed By: #### V ANCT #### [facility] [address] [place] [address] Dr. Amanda Cottrell Y. Enterocolitica Not detected Normal NOT DETECTED [facility] Comment on above: Performed By: #### V ANCT #### [facility] [address] [place] [address] Dr. Amanda Cottrell LACTATE/LACTIC ACIDon 2021 Lactate [Moles/Vol] 1.0 mmol/L Normal 0.7-2.0 [facility] Comment on above: Performed By: #### C BCMAN #### [facility] [address] [place] [address] Dr. Amanda Cottrell LIPASEon 12-11-2021 Lipase [Catalytic activity/Vol] 97.0 U/L Normal 23.0-300.0 [facility] Comment on above: Performed By: #### C MP, LIPA #### [facility] [address] [place] [address] Dr. Amanda Cottrell OCC BLD IMMUNO SCREENon 11-13 OCCULT BLOOD Positive Abnormal NEGATIVE [facility] Comment on above: Performed By: #### C MELCHOR #### [facility] [address] [place] [address] Dr. Amanda Cottrell PROF 14(COMP METB)on 022 Albumin [Mass/Vol] 2.0 g/dL Critically low 3.5-5.0 [facility] Comment on above: Performed By: #### C MP, LIPA #### [facility] [address] [place] [address] Dr. Amanda Cottrell Albumin/Globulin [Mass ratio] 0.5 {ratio} Normal [facility] Comment on above: Performed By: #### C MP, LIPA #### [facility] [address] [place] [address] Dr. Amanda Cottrell ALP [Catalytic activity/Vol] 91 U/L Normal 38-126 [facility] Comment on above: Performed By: #### C MP, LIPA #### [facility] [address] [place] [address] Dr. Amanda Cottrell ALT [Catalytic activity/Vol] 36 U/L Normal 21-72 [facility] Comment on above: Performed By: #### C MP, LIPA #### [facility] [address] [place] [address] Dr. Amanda Cottrell Anion gap [Moles/Vol] 9.6 mmol/L Normal [facility] Comment on above: Performed By: #### C MP, LIPA #### [facility] [address] [place] [address] Dr. Amanda Cottrell AST [Catalytic activity/Vol] 22 U/L Normal 17-59 [facility] Comment on above: Performed By: #### C MP, LIPA #### [facility] [address] [place] [address] Dr. Amanda Cottrell Bilirubin [Mass/Vol] 0.8 mg/dL Normal 0.2-1.3 [facility] Comment on above: Performed By: #### C MP, LIPA #### [facility] [address] [place] [address] Dr. Amanda Cottrell Calcium [Mass/Vol] 7.8 mg/dL Critically low 8.4-10.2 [facility] [place] Comment on above: Performed By: #### C MP, LIPA #### [facility] [address] [place] [address] Dr. Amanda Cottrell Chloride [Moles/Vol] 93 mmol/L Critically low 98-107 [facility] Comment on above: Performed By: #### C MP, LIPA #### [facility] [address] [place] [address] Dr. Amanda Cottrell CO2 [Moles/Vol] 24.4 mmol/L Normal 22.0-30.[address] [facility] Comment on above: Performed By: #### C MP, LIPA #### [facility] [address] [place] [address] Dr. Amanda Cottrell Creatinine [Mass/Vol] 0.71 mg/dL Normal 0.66-1.25 [facility] Comment on above: Performed By: #### C MP, LIPA #### [facility] [address] [place] [address] Dr. Amanda Cottrell EGFR-AF POLISH >60 Normal >=[address] [facility] Comment on above: Performed By: #### C MP, LIPA #### [facility] [address] [place] [address] Dr. Amanda Cottrell EGFR-NON AF POLISH >60 Normal >=60 [facility] Comment on above: Performed By: #### C MP, LIPA #### [facility] [address] [address] [address] Amanda Cottrell Globulin (S) [Mass/Vol] 4.3 g/dL Normal [facility] Comment on above: Performed By: #### C MP, LIPA #### [facility] [address] [place] [address] Dr. Amanda Cottrell Glucose [Mass/Vol] 122 mg/dL Critically high 74-106 [facility] Comment on above: Performed By: #### C EMILEE, LIPA #### [facility] [address] [place] [address] Dr. Amanda Cottrell Potassium [Moles/Vol] 2.9 mmol/L Critically low 3.4-5.0 [facility] Comment on above: Performed By: #### C MP, LIPA #### [facility] [address] [place] [address] Dr. Amanda Cottrell Protein [Mass/Vol] 6.3 g/dL Normal 6.1-8.2 [facility] Comment on above: Performed By: #### C MP, LIPA #### [facility] [address] [place] [address] Dr. Amanda Cottrell Sodium [Moles/Vol] 122 mmol/L Critically low 137-145 [facility] Comment on above: Performed By: #### C MP, LIPA #### [facility] [address] [place] [address] Dr. Amanda Cottrell Urea nitrogen [Mass/Vol] 11.0 mg/dL Normal 9.0-20.0 [facility] Comment on above: Performed By: #### C MP, LIPA #### [facility] [address] [place] [address] Dr. Amanda Cottrell Urea nitrogen/Creatinine [Mass ratio] 15.0 mg/mg Normal [facility] Comment on above: Performed By: #### C MP, LIPA #### [facility] [address] [place], [place] [address] Dr. Amanda Cottrell XR ABD FLAT UP_PA [...] by: SAMUEL GREENE Date: 2021-12-11 17:09 Normal [facility] Basic Metab w/rfx MGon 10-23 (cont.) Normal [facility] Comment on above: Result Comment: Aver age GFR for 30-39 years old: 107 mL/min/1.73sq m Chronic Kidney Disease: <60 mL/min/1.73sq m Kidney failure: <15 mL/min/1.73sq m eGFR calculated using average adult body mass. Additional eGFR calculator available at: http://[email or web address]/multiple_crcl_2012.htm Performed By: #### C P, CDP #### [facility] [address] [place] [address] Bearing Grinder: Joelle Parker MD Anion gap [Moles/Vol] 11 mmol/L Normal 9-17 [facility] Comment on above: Performed By: #### C P, CDP #### [facility] [address] [place] [address] Bearing Grinder: Joelle Parker MD BUN/CRE Ratio 16 Normal - [facility] Comment on above: Performed By: #### C P, CDP #### [facility] [address] [place], [place] [id number] Bearing Grinder: Joelle Parker MD Calcium [Mass/Vol] 9.5 mg/dL Normal 8.6-10.4 [facility] Comment on above: Performed By: #### C P, CDP #### [facility] [address] [place], [place] [id number] Bearing Grinder: Joelle Parker MD Chloride [Moles/Vol] 100 mmol/L Normal 98-107 [facility] Comment on above: Performed By: #### C P, CDP #### [facility] [address] [place], [place] [id number] Bearing Grinder: Joelle Parker MD CO2 [Moles/Vol] 26 mmol/L Normal 20-31 [facility] Comment on above: Performed By: #### C P, CDP #### [facility] [address] [place], [place] [id number] Bearing Grinder: Joelle Parker MD Creatinine [Mass/Vol] 0.95 mg/dL Normal 0.70-1.20 [facility] Comment on above: Performed By: #### C P, CDP #### [facility] [address] [place], [place] [id number] Bearing Grinder: Joelle Parker MD GFR, Amer >60 Normal >60 [facility] Comment on above: Performed By: #### C P, CDP #### [facility] [address] [place], [place] [id number] Bearing Grinder: Joelle Parker MD GFR,non Amer >60 Normal >60 [facility] Comment on above: Performed By: #### C P, CDP #### [facility] [address] [place], [place] [id number] Bearing Grinder: Joelle Parker MD Glucose [Mass/Vol] 92 mg/dL Normal 70-99 [facility] Comment on above: Performed By: #### C P, CDP #### [facility] [address] [place], [place] [id number] Bearing Grinder: Joelle Parker MD Potassium [Moles/Vol] 3.7 mmol/L Normal 3.7-5.3 [facility] Comment on above: Performed By: #### C P, CDP #### [facility] [address] [place], [place] [id number] Bearing Grinder: Joelle Parker MD Sodium [Moles/Vol] 137 mmol/L Normal 135-144 [facility] Comment on above: Performed By: #### C P, CDP #### [facility] [address] [place], [place] [id number] Bearing Grinder: Joelle Parker MD Staging: Normal [facility] Comment on above: Result Comment: Stag e 1: Some kidney damage normal GFR Stage 2: Mild kidney damage GFR 60-89 Stage 3: Moderate kidney damage GFR 30-59 Stage 4: Severe kidney damage GFR 15-29 Stage 5: Severe kidney damage GFR <15 ESRD - chronic treatment by dialysis or transplant Performed By: #### C P, CDP #### [address] [place], [place] [id number] Bearing Grinder: Joelle Parker MD Urea nitrogen [Mass/Vol] 15 mg/dL Normal 6-20 [facility] Comment on above: Performed By: #### C P, CDP #### [facility] [address] [place], [place] [id number] Bearing Grinder: Joelle Parker MD CBC with Diffon 10-23-2021 Abs. Basophil 0.05 k/uL Normal 0.00-0.20 [facility] Comment on above: Performed By: #### C P, CDP #### [facility] [address] [place], [place] [id number] Bearing Grinder: Joelle Parker MD Abs.Imm.Granulocyte <0.03 Normal 0.00-0.30 [facility] Comment on above: Performed By: #### C P, CDP #### [address] [place], [facility] Bearing Grinder: Joelle Parker MD Abs.Neutrophil (Seg) 4.12 k/uL Normal 1.50-8.10 [facility] Comment on above: Performed By: #### C P, CDP #### [address] [place], [facility] Bearing Grinder: Joelle Parker MD Basophils/100 WBC (Bld) 1 % Normal 0-2 [facility] Comment on above: Performed By: #### C P, CDP #### [address] [place], [place] [address] Bearing Grinder: Joelle Parker MD Eosinophils (Bld) [#/Vol] 0.74 10*3/uL High 0.00-0.44 [facility] Comment on above: Performed By: #### C P, CDP #### [address] [place], [place] [address] Bearing Grinder: Joelle Parker MD Eosinophils/100 WBC (Bld) 10 % High 1-4 [facility] Comment on above: Performed By: #### C P, CDP #### [address] [place], [place] [address] Bearing Grinder: Joelle Parker MD Erythrocyte distribution width (RBC) [Ratio] 13.8 % Normal 11.8-14.4 [facility] Comment on above: Performed By: #### C P, CDP #### [address] [place], [facility]83 Bearing Grinder: Joelle Parker MD Hematocrit (Bld) [Volume fraction] 41.9 % Normal 40.7-50.3 [facility] Comment on above: Performed By: #### C P, CDP #### [facility] [address] [place], [place] [id number] Bearing Grinder: Joelle Parker MD Hemoglobin (Bld) [Mass/Vol] 13.6 g/dL Normal 13.0-17.0 [facility] Comment on above: Performed By: #### C P, CDP #### [facility] [address] [place], [facility]83 Bearing Grinder: Joelle Parker MD Immature granulocytes/100 WBC (Bld) 0 % Normal 0 [facility] Comment on above: Performed By: #### C P, CDP #### [address] [place] [address] Bearing Grinder: Joelle Parker MD Lymphocytes (Bld) [#/Vol] 1.50 10*3/uL Normal 1.10-3.70 [facility] Comment on above: Performed By: #### C P, CDP #### [address] [place], [facility]83 Bearing Grinder: Joelle Parker MD Lymphocytes/100 WBC (Bld) 21 % Low 24-43 [facility] Comment on above: Performed By: #### C P, CDP #### [address] [place] [address] Bearing Grinder: Joelle Parker MD MCH (RBC) [Entitic mass] 28.6 pg Normal 25.2-33.5 [facility] Comment on above: Performed By: #### C P, CDP #### [address] [place] [address] Bearing Grinder: Joelle Parker MD MCHC (RBC) [Mass/Vol] 32.5 g/dL Normal 28.4-34.8 [facility] Comment on above: Performed By: #### C P, CDP #### [address] [place] [address] Bearing Grinder: Joelle Parker MD MCV (RBC) [Entitic vol] 88.2 fL Normal 82.6-102.9 [facility] Comment on above: Performed By: #### C P, CDP #### [address] [place], [place] [id number] Bearing Grinder: Joelle Parker MD Monocytes (Bld) [#/Vol] 0.68 10*3/uL Normal 0.10-1.20 [facility] Comment on above: Performed By: #### C P, CDP #### [address] [place] [address] Bearing Grinder: Joelle Parker MD Monocytes/100 WBC (Bld) 10 % Normal 3-12 [facility] Comment on above: Performed By: #### C P, CDP #### [address] [place], [facility]83 Bearing Grinder: Joelle Parker MD Neutrophil (Seg) 58 % Normal 36-65 [facility] Comment on above: Performed By: #### C P, CDP #### [address] [place], [place] [id number] Bearing Grinder: Joelle Parker MD NRBC Automated 0.0 per 100 WBC Normal 0.0 [facility] Comment on above: Performed By: #### C P, CDP #### [address] [place], [facility]83 Bearing Grinder: Joelle Parker MD Platelet mean volume (Bld) [Entitic vol] 9.1 fL Normal 8.1-13.5 [facility] Comment on above: Performed By: #### C P, CDP #### [address] [place], [place] [id number] Bearing Grinder: Joelle Parker MD Platelets (Bld) [#/Vol] 214 10*3/uL Normal 138-453 [facility] Comment on above: Performed By: #### C P, CDP #### [facility] [address] [place], [place] [id number] Bearing Grinder: Joelle Parker MD RBC (Bld) [#/Vol] 4.75 10*6/uL Normal 4.21-5.77 [facility] Comment on above: Performed By: #### C P, CDP #### [facility] [address] [place], [place] [id number] Bearing Grinder: Joelle Parker MD WBC (Bld) [#/Vol] 7.1 10*3/uL Normal 3.5-11.3 [facility] Comment on above: Performed By: #### C P, CDP #### [facility] [address] [place], [facility]83 Bearing Grinder: Joelle Parker MD Auto Diff Performed NOT REPORTED Normal [facility] Comment on above: Performed By: #### C P, CDP #### [facility] [address] [place], [place] [id number] Bearing Grinder: Joelle Parker MD Platelet Comment NOT REPORTED Normal [facility] Comment on above: Performed By: #### C P, CDP #### [facility] [address] [place] [address] [place], [place] [id number] Bearing Grinder: Joelle Parker MD RBC morphology finding Nom (Bld) NOT REPORTED Normal [facility] Comment on above: Performed By: #### C P, CDP #### [facility] [address] [place], [place] [id number] Bearing Grinder: Joelle Parker MD WBC Morphology NOT REPORTED Normal [facility] Comment on above: Performed By: #### C P, CDP #### [facility] [address] [place], [place] [id number] Bearing Grinder: Joelle Parker MD Ethanol Alcoholon 10-23-2021 Ethanol [Mass/Vol] mg/dL Normal <10 [facility] Comment on above: Performed By: #### A LCB #### [facility] [address] [place] [address] Bearing Grinder: Joelle Parker MD Ethanol percent <0.010 Normal <0.010 [facility] Comment on above: Performed By: #### A LCB #### [facility] [address] [place] [address] Bearing Grinder: Joelle Parker MD Troponinon 10-23-2021 Troponin, High Sens <6 Normal 0-22 [facility] Comment on above: Result Comment: High Sensitivity Troponin values cannot be compared with other Troponin methodologies. Patients with high levels of Biotin oral intake (i.e >5mg/day) may have falsely decreased Troponin levels. Samples collected within 8 hours of biotin intake may require additional information for diagnosis. Performed By: #### C P, CDP #### [facility] [address] [place] [address] Bearing Grinder: Joelle Parker MD Troponin Interp. NOT REPORTED Normal [facility] Comment on above: Performed By: #### C P, CDP #### [facility] [address] [place] [address] Bearing Grinder: Joelle Parker MD Troponin T NOT REPORTED Normal <0.03 [facility] Comment on above: Performed By: #### C P, CDP #### [facility] [address] [place] [address] Bearing Grinder: Joelle Parker MD XR CHEST PORTABLEon 10-23-20 [...] Addy Gates MD 10/23/21 Final result Normal [facility] Basic Metabolic Panel w/ Ref rebecca to MGOrdered By: Yareli Jonas on 05-29-2021 Anion gap [Moles/Vol] 11 mmol/L 9 - 17 mmol/L [employer] Phone: Calcium [Mass/Vol] 9.5 mg/dL 8.6 - 10. 4 mg/dL [employer] Phone: Chloride [Moles/Vol] 104 mmol/L 98 - 10 7 mmol/L [employer] Phone: CO2 [Moles/Vol] 27 mmol/L 20 - 31 mmol/L [employer] Phone: Creatinine [Mass/Vol] 0.9 mg/dL 0.70 - 1.20 mg/dL [employer] Phone: GFR >60 >60 mL/min Boxed Phone: GFR Non- >60 >60 mL/min [employer] Phone: Glucose [Mass/Vol] 91 mg/dL 70 - 99 mg/dL [employer] Phone: Potassium [Moles/Vol] 3.8 mmol/L 3.7 - 5.3 mmol/L [employer] Phone: Sodium [Moles/Vol] 142 mmol/L 135 - 144 mmol/L [employer] Phone: Urea nitrogen (BldV) [Mass/Vol] 15 mg/dL 6 - 20 mg/dL [employer] Phone: Urea nitrogen/Creatinine (Bld) [Mass ratio] 17 [employer] Phone: Brain Natriuretic PeptideOrd ered By: Yareli Jonas on 05-29-2021 BNP Interpretation Pro-BNP Reference Range: [employer] Phone: Comment on above: Rule Out: <300 Juares Zone: Age <50 300-450 Age 50-75 300-900 Age >75 300-1800 Usually represents mild to moderate HF but other cardiopulmonary causes cannot be ruled out. Rule In: Age <50 >450 Age 50-75 >900 Age >75 >1800 Natriuretic peptide B (Bld) [Mass/Vol] 34 pg/mL <300 [employer] Phone: Comment on above: Pro-BNP results zora ot be compared to BNP results. [employer] Phone: CBC Auto DifferentialOrdered By: Yareli Jonas on 05-29-2021 Absolute Eos # 0.17 [facility] Work Phone: Absolute Immature Granulocyte <0.03 [employer] Phone: Absolute Lymph # 0.98 Low [facility] Work Phone: Absolute [facility] # 0.56 [facility] Work Phone: Basophils (Bld) [#/Vol] 0.03 10*3/uL [employer] Phone: Basophils/100 WBC (Bld) 1 % 0 - 2 % [facility] Phone: Differential Type NOT REPORTED [employer] Phone: Eosinophils/100 WBC (Bld) 3 % 1 - 4 % [facility] Phone: Hematocrit (Bld) [Volume fraction] 38.8 % Low 40.7 - 50.3 % [facility] Phone: Hemoglobin.gastrointesti nal spec 1 Ql (Stl) 12.6 g/dL Low 13.0 - 17.0 g/dL [employer] Phone: Immature granulocytes/100 WBC (Bld) 0 % 0 [employer] Phone: Interpretation and review of laboratory results Abnormal [employer] Phone: Lymphocytes/100 WBC (Bld) 17 % Low 24 - 43 % [employer] Phone: MCH (RBC) [Entitic mass] 28.8 pg 25. 2 - 33.5 pg [employer] Phone: MCHC (RBC) [Mass/Vol] 32.5 g/dL 28.4 - 34.8 g/dL [employer] Phone: MCV (RBC) [Entitic vol] 88.6 fL 82.6 - 102.9 fL [employer] Phone: Monocytes/100 WBC (Bld) 10 % 3 - 12 % M [employer] Phone: NRBC Automated 0.0 0.0 per 100 WBC [employer] Phone: Platelet distribution width (Bld) [Ratio] 13.3 % 11.8 - 14.4 % [employer] Phone: Platelet Estimate NOT REPORTED [employer] Phone: Platelet mean volume (Bld) [Entitic vol] 8.7 fL 8.1 - 13.5 fL [employer] Phone: Platelets (Bld) [#/Vol] 193 10*3/uL [employer] Phone: RBC (Bld) [#/Vol] 4.38 10*6/uL 4.21 - 5.7 7 m/uL [employer] Phone: RBC (Bld) [#/Vol] NOT REPORTED [employer] Phone: Segmented neutrophils/100 WBC (Bld) 69 % High 36 - 65 % [employer] Phone: Segs Absolute 3.91 [employer] Work Phone: WBC (Bld) [#/Vol] 5.7 10*3/uL [employer] Phone: WBC (Bld) [#/Vol] NOT REPORTED [employer] Phone: [employer] Phone: CT CHEST ABDOMEN PELVIS W CO NTRASTOrdered By: Yareli Jonas on 05-29-2021 1. No acute visceral or osseous abnormality. 2. No acute infective or inflammatory process. 3. A few bilateral inguinal lymph nodes up to 13 mm in maximal dimension likely reactive. Please correlate with physical exam. [employer] Phone: EXAMINATION: CT OF THE CHEST, ABDOMEN, [...] COMPARISON: None HISTORY: ORDERING SYSTEM PROVIDED HISTORY: [facility] lower abdominal pain TECHNOLOGIST PROVIDED HISTORY: [facility] lower abdominal pain Decision Support Exception - [...] superficial soft tissues show no significant abnormalities. [employer] Work Phone: Kirt, pn Incoming Radiant Results From [employer]/iCook.tw - 05/29/2021 2:41 PM EDT EXAMINATION: CT [...] COMPARISON: None HISTORY: ORDERING SYSTEM PROVIDED HISTORY: [facility] lower abdominal pain TECHNOLOGIST PROVIDED HISTORY: [facility] lower abdominal pain Decision Support Exception - [...] likely reactive. Please correlate with physical exam. [employer] Phone: [employer] Phone: D-Dimer, QuantitativeOrdered By: Yareli Jonas on 05-29-2021 D-Dimer, Quant 0.70 High [employer]le Phone: Comment on above: When combined with [...] Interpretation and review of laboratory results Abnormal [employer] Phone: [employer] Phone: Hepatic Function PanelOrdere d By: Yareli Jonas on 05-29-2021 Albumin [Mass/Vol] 3.7 g/dL 3.5 - 5.2 g/dL [employer] Phone: Albumin/Globulin [Mass ratio] 0.9 {ratio} Low [employer] Phone: ALP (Bld) [Catalytic activity/Vol] 88 U/L 40 - 129 U/L [employer] Phone: ALT [Catalytic activity/Vol] 54 U/L High 5 - 41 U/L [employer] Phone: AST [Catalytic activity/Vol] 32 U/L <40 [employer] Phone: Bilirubin [Mass/Vol] 0.54 mg/dL 0.3 - 1 .2 mg/dL [employer] Phone: Bilirubin, Indirect CANNOT BE CALCULATED 0.00 - 1.00 mg/dL [employer] Phone: Bilirubin.indirect [Mass/Vol] mg/dL <0.31 mg/dL [employer] Phone: Free PSA/Total PSA [Mass fraction] 7.7 g/dL 6.4 - 8.3 g/dL [employer] Phone: Globulin NOT REPORTED 1.5 - 3.8 g/dL [employer] Phone: Interpretation and review of laboratory results Abnormal [employer] Phone: Laboratory - Chemistry and C hemistry - challengeOrdered By: Yareli Jonas on 05-29-2021 GFR/1.73 sq M.predicted MDRD (S/P/Bld) [Vol rate/Area] [employer] Phone: Comment on above: Average GFR for 30-3 9 years old: 107 mL/min/1.73sq m Chronic Kidney Disease: <60 mL/min/1.73sq m Kidney failure: <15 mL/min/1.73sq m eGFR calculated using average adult body mass. Additional eGFR calculator available at: http://www.[employer]/multiple_crcl_2012.htm Stage 1: Some kidney damage normal GFR Stage 2: Mild kidney damage GFR 60-89 Stage 3: Moderate kidney damage GFR 30-59 Stage 4: Severe kidney damage GFR 15-29 Stage 5: Severe kidney damage GFR <15 ESRD - chronic treatment by dialysis or transplant LipaseOrdered By: Ellyn on 05-29-2021 Lipase [Catalytic activity/Vol] 13 U/L 13 - 60 U/L [employer] Phone: No Panel InformationOrdered By: Yareli Jonas on 05-29-2021 No acute intracrania l abnormality. No acute fracture dislocation involving cervical spine. [employer] Phone: EXAMINATION: CT OF THE HEAD WITHOUT [...] appear grossly unremarkable. Lung apices are clear. [employer] Phone: Kirt, Mhpn Incoming Radiant Results From Vivast[employer]/Survmetricss - 05/29/2021 2:15 PM EDT EXAMINATION: CT [...] No acute fracture dislocation involving cervical spine. [employer] Phone: [employer] Phone: [employer] Phone: Protime-INROrdered By: Duane Jonas on 05-29-2021 INR Coag (Bld) [Relative time] 1.1 {INR} [employer] Phone: Comment on above: Non-therapeutic Range: INR = 0.9-1.2 Therapeutic Range: Moderate Anticoagulant Intensity: INR = 2.0-3.0 High Anticoagulant Intensity: INR = 2.5-3.5 PT Coag (PPP) [Time] 13.9 s [facility] [employer] Work Phone: [facility] Work Phone: TroponinOrdered By: Yareli coles on 05-29-2021 Troponin Interp NOT REPORTED [facility] [employer] [facility] Work Phone: Troponin T NOT REPORTED <0.03 ng/mL [facility] Work Phone: Troponin, High Sensitivity 13 ng/L 0 - 22 ng/L [facility] [employer] Phone: Comment on above: High Sensitivity Troponin values cannot be compared with other Troponin methodologies. Patients with high levels of Biotin oral intake (i.e >5mg/day) may have falsely decreased Troponin levels. Samples collected within 8 hours of biotin intake may require additional information for diagnosis. [employer] Work Phone: Urinalysis, reflex to micros copicOrdered By: Yareli Jonas on 05-29-2021 Bilirubin Urine Negative NEGATIVE [facility] HospitalPanOpticase[facility] Work Phone: Color, UA YELLOW YELLOW [facility] [employer] Work Phone: Glucose, Ur Negative NEGATIVE [facility] [employer] Phone: Ketones Ql (U) Negative NEGATIVE [facility] Work Phone: Leukocyte esterase Test strip Ql (U) Negative NEGATIVE [facility] [employer] Work Phone: Nitrite, Urine Negative NEGATIVE [facility] Work Phone: pH, UA 8.0 [facility] [employer] Phone: Protein, UA Negative NEGATIVE [facility] [employer] Phone: Specific [place], UA 1.010 [facility] [employer] Work Phone: Turbidity UA CLEAR CLEAR [facility] [employer] Work Phone: Urinalysis Comments NOT REPORTED [facility] [employer] Work Phone: Urine Hgb Negative NEGATIVE [facility] [employer] Phone: Urobilinogen, Urine Normal Normal [facility] [employer] Phone: [facility] [employer] Phone: VL DUP LOWER EXTREMITY VENOU S BILATERALOrdered By: Yareli Jonas on 05-29-2021 [employer]irt, pn Incoming Cardio Results From Cpacs/Ge - 05/29/2021 4:05 PM EDT [facility] Vascular Lower Extremities DVT Study Procedure Patient Name COTY Date of Study 05/29/2021 TIP Plata Date of 1980 Gender Male Age 41 year(s) Race Room Number 06 Corporate ID [id number] # Patient Acct [id number] # MR # [id number] [employer] 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 Procedure Type of Study: Veins: Lower Extremities [...] +---- ------+ -+---- (more content not included)... [employer] Phone: [employer] Phone: Basic Metabolic Panelon 0 Anion gap [Moles/Vol] 9 mmol/L 9 - 17 mmol/L [place] Bun/Cre Ratio 12 [place] Calcium [Mass/Vol] 9.0 mg/dL 8.6 - 10. 4 mg/dL [place] Chloride [Moles/Vol] 99 mmol/L 98 - 10 7 mmol/L [place] CO2 [Moles/Vol] 27 mmol/L 20 - 31 mmol/L [place] Creatinine [Mass/Vol] 0.93 mg/dL 0.7 - 1.2 mg/dL [place] GFR >60 >60 mL/min [place] GFR Non- >60 >60 mL/min [place] Glucose [Mass/Vol] 112 mg/dL High 70 - 99 mg/dL [place] Interpretation and review of laboratory results Abnormal [place] Potassium [Moles/Vol] 3.9 mmol/L 3.7 - 5.3 mmol/L [place] Sodium [Moles/Vol] 135 mmol/L 135 - 144 mmol/L [place] Urea nitrogen [Mass/Vol] 11 mg/dL 6 - 20 mg/d L [place] Blood Gas, Arterialon 2020 Guille Test PASS [place] aPTT Coag (Bld) [Time] 37.0 s Me [place] Carboxyhemoglobin NOT REPORTED 0 - 5 % [place] FIO2 28 [place] HCO3, Arterial 25.7 mmol/L 22 - 26 mmol/L [place] Methemoglobin NOT REPORTED 0 - 1.9 % [place] Mode NOT REPORTED [place] Negative Base Excess, Art NOT REPORTED 0 - 2 mmol/L [place] NOTIFICATION NOT REPORTED [place] NOTIFICATION TIME NOT REPORTED [place] O2 Device/Flow/% Cannula [place] Comment on above: 2 Oxygen saturation in Blood 97.1 % 95 - 98 % [place] Oxyhemoglobin NOT REPORTED 95 - 98 % [facility] José Miguel [place] pCO2, Art, Temp Adj NOT REPORTED [place] pCO2, Arterial 44.5 [place] Peep/Cpap NOT REPORTED [place] pH, Art, Temp Adj NOT REPORTED [place] pH, Arterial 7.380 [place] pO2, Art, Temp Adj NOT REPORTED [place] pO2, Arterial 94.4 [place], [place] Positive Base Excess, Art 0.3 mmol/L 0 - 2 mmol/L [place] PSV NOT REPORTED [place] Pt. Position SUPINE [place] Sample Site Right Radial Artery [place] Set Rate NOT REPORTED [place] Text for Respiratory NOT REPORTED [place] Total Hb NOT REPORTED 12 - 16 g/dl [place] Total Rate NOT REPORTED [place] VT NOT REPORTED [place] Brain Natriuretic Peptideon 12-16-2020 Natriuretic peptide B (Bld) [Mass/Vol] Pro-BNP Reference Range: [place] Comment on above: Rule Out: <300 Juares Zone: Age <50 300-450 Age 50-75 300-900 Age >75 300-1800 Usually represents mild to moderate HF but other cardiopulmonary causes cannot be ruled out. Rule In: Age <50 >450 Age 50-75 >900 Age >75 >1800 Natriuretic peptide B (Bld) [Mass/Vol] 31 pg/mL <300 [place] Comment on above: Pro-BNP results zora ot be compared to BNP results. CBC Auto Differentialon 02-0 Basophils (Bld) [#/Vol] 0.00 10*3/uL [place] Basophils/100 WBC (Bld) 0 % 0 - 2 % [place] Differential Type NOT REPORTED [place] Eosinophils (Bld) [#/Vol] 0.09 10*3/uL [place] Eosinophils/100 WBC (Bld) 2 % 1 - 4 % [place] Erythrocyte distribution width (RBC) [Ratio] 14.9 % High 11.8 - 14.4 % [place] Hematocrit (Bld) [Volume fraction] 37.8 % Low 40.7 - 50.3 % [place] Hemoglobin (Bld) [Mass/Vol] 12.4 g/dL Low 13 - 17 g/dL [place] Immature granulocytes (Bld) [#/Vol] 0.00 10*3/uL [place] Immature granulocytes (Bld) [#/Vol] 0 % 0 [place] Interpretation and review of laboratory results Abnormal [place] Lymphocytes (Bld) [#/Vol] 0.61 10*3/uL Low [place] Lymphocytes/100 WBC (Bld) 13 % Low 24 - 43 % [place] MCH (RBC) [Entitic mass] 28.7 pg 25. 2 - 33.5 pg [place] MCHC (RBC) [Mass/Vol] 32.8 g/dL 28.4 - 34.8 g/dL [place] MCV (RBC) [Entitic vol] 87.5 fL 82.6 - 102.9 fL [place] Monocytes (Bld) [#/Vol] 1.03 10*3/uL [place] Monocytes/100 WBC (Bld) 22 % High 3 - 12 % M [place] Morphology Adis (Bld) [Interp] Normal [place] Platelet mean volume (Bld) [Entitic vol] 8.6 fL 8.1 - 13.5 fL [place] Platelets (Bld) [#/Vol] 195 10*3/uL [place] Platelets (Bld) [#/Vol] NOT REPORTED [place] RBC (Bld) [#/Vol] 4.32 10*6/uL 4.21 - 5.7 7 m/uL [place] RBC morphology finding Nom (Bld) NOT REPORTED [place] Segmented neutrophils/100 WBC (Bld) 63 % 36 - 65 % [place] Segs Absolute 2.97 [place] WBC (Bld) [#/Vol] 4.7 10*3/uL [place] WBC (Bld) [#/Vol] 0.0 10*3/uL 0.0 per 10 0 WBC [place] WBC Morphology NOT REPORTED [place] COVID-19, PCRon 12-16-2020 Interpretation and review of laboratory results Abnormal [place] SARS-CoV-2, Rapid DETECTED Abnormal Not Detected [place] Comment on above: Rapid NAAT: The [...] this assay. Fact sheet for Healthcare Providers: https://www.fda.gov/media/505822/download Fact sheet for Patients: https://www.fda.gov/media/404383/download Methodology: Isothermal Nucleic Acid Amplification Results reported to the appropriate Health Department Source .NASOPHARYNGEAL SWAB [place] CT CHEST PULMONARY EMBOLISM W CONTRASTon 12-16-2020 Lymphocytes (Bld) [#/Vol] No evidence of pulmonary embolism or acute aortic disease. Mild mediastinal lymphadenopathy. Bilateral lower lobe infiltrates/atelectat ic changes but no evidence of pleural disease. [place] EXAMINATION: CTA OF THE CHEST 12/16/2020 [...] No acute bone or soft tissue abnormality. [facility] [employer] [place] [employer], [employer] Incoming Radiant Results From Viv[employer]/iCook.tw - 12/16/2020 11:32 AM EST EXAMINATION: CTA [...] changes but no evidence of pleural disease. [facility] [employer] Drug screen multi urineon Amphetamine Screen, Ur Positive Abnormal NEGATIVE [facility] [employer]- [place] Barbiturate Screen, Ur Negative NEGATIVE [place] Benzodiazepine Screen, Urine Negative NEGATIVE [place] Buprenorphine Urine Negative NEGATIVE [place] Cannabinoid Scrn, Ur Positive Abnormal NEGATIVE [place] Cocaine Metabolite, Urine Positive Abnormal NEGATIVE [place] Interpretation and review of laboratory results Abnormal [place] MDMA, Urine NOT REPORTED NEGATIVE [facility] [place] Methadone Screen, Urine Negative NEGATIVE [place] Methamphetamine, Urine Positive Abnormal NEGATIVE [place] Opiates, Urine Positive Abnormal NEGATIVE [place] Oxycodone Screen, Ur Negative NEGATIVE [place] Phencyclidine, Urine Negative NEGATIVE [place] Propoxyphene, Urine Negative NEGATIVE [place] Test Information NOT REPORTED [place] Tricyclic Antidepressants, Urine Negative NEGATIVE [place] Comment on above: Drug screen results are to be used for medical purposes only. All positive results are unconfirmed. Testing for employment or legal uses should be sent to a reference laboratory for confirmation. Ethanolon 12-16-2020 Ethanol [Mass/Vol] mg/dL <10 mg/dL [place] Ethanol percent <0.010 <0.010 % [place] Hepatic Function Panelon Albumin [Mass/Vol] 3.9 g/dL 3.5 - 5.2 g/dL [place] Albumin/Globulin [Mass ratio] 1.1 {ratio} [place] ALP [Catalytic activity/Vol] 91 U/L 40 - 129 U/L [place] ALT [Catalytic activity/Vol] 52 U/L High 5 - 41 U/L [place] AST [Catalytic activity/Vol] 39 U/L <40 [place] Bilirubin Ql (U) 0.26 mg/dL Low 0.3 - 1.2 mg/dL [place] Bilirubin, Indirect CANNOT BE CALCULATED 0 - 1 mg/dL [place] Bilirubin.direct [Mass/Vol] mg/dL <0.31 mg/dL [place] Globulin (S) [Mass/Vol] NOT REPORTED 1.5 - 3.8 g/dL [place] Interpretation and review of laboratory results Abnormal [place] Protein [Mass/Vol] 7.5 g/dL 6.4 - 8.3 g/dL [place] Metabolic Panelon 12-16-2020 GFR/1.73 sq M predicted among non-blacks MDRD (S/P/Bld) [Vol rate/Area] [place] Comment on above: Average GFR for 30-3 9 years old: 107 mL/min/1.73sq m Chronic Kidney Disease: <60 mL/min/1.73sq m Kidney failure: <15 mL/min/1.73sq m eGFR calculated using average adult body mass. Additional eGFR calculator available at: http://www.[employer]/multiple_crcl_2012.htm Stage 1: Some kidney damage normal GFR Stage 2: Mild kidney damage GFR 60-89 Stage 3: Moderate kidney damage GFR 30-59 Stage 4: Severe kidney damage GFR 15-29 Stage 5: Severe kidney damage GFR <15 ESRD - chronic treatment by dialysis or transplant Otheron 12-16-2020 SARS-CoV-2 [place], [place] Troponinon 12-16-2020 Troponin I.cardiac [Mass/Vol] NOT REPORTED [place] Troponin T.cardiac [Mass/Vol] NOT REPORTED <0.03 ng/mL [place] Troponin, High Sensitivity 6 ng/L 0 - 22 ng/L [place] Comment on above: High Sensitivity Troponin values cannot be compared with other Troponin methodologies. Patients with high levels of Biotin oral intake (i.e >5mg/day) may have falsely decreased Troponin levels. Samples collected within 8 hours of biotin intake may require additional information for diagnosis. Troponin I.cardiac [Mass/Vol] NOT REPORTED [place] Troponin T.cardiac [Mass/Vol] NOT REPORTED <0.03 ng/mL [place] Troponin, High Sensitivity 6 ng/L 0 - 22 ng/L [place] Comment on above: High Sensitivity Troponin values cannot be compared with other Troponin methodologies. Patients with high levels of Biotin oral intake (i.e >5mg/day) may have falsely decreased Troponin levels. Samples collected within 8 hours of biotin intake may require additional information for diagnosis. XR CHEST PORTABLEon 12-16-19 [place], [facility] Incoming Radiant Results From [employer] [facility] - 12/16/2020 7:18 AM EST EXAMINATION: ONE [...] viral pneumonia. Pulmonary edema cannot be excluded. [place], [place] EXAMINATION: ONE XRA Y VIEW OF THE CHEST 12/16/2020 6:50 am COMPARISON: March 16, 2016 HISTORY: ORDERING SYSTEM PROVIDED HISTORY: Cp TECHNOLOGIST PROVIDED HISTORY: Cp Chest pain FINDINGS: Subtle hazy perihilar and bibasilar opacities. Cardiomediastinal within normal limits. Trace left pleural effusion cannot be excluded. No pneumothorax or subdiaphragmatic free air. No acute osseous abnormality identified. [place], [place] Subtle multifocal bilateral opacities concerning for developing multifocal or viral pneumonia. Pulmonary edema cannot be excluded. [place], [place] Discharge [id number] Discharge Profile2 Discharge Orders: Anticipated Discharge Date: Anticipated Discharge [id number] Anticipated Discharge Time09:25 Activity: activity as tolerated. May shower. Diet: Dietregular Provider FINAL REVIEW of Orders: Final Review: Final Review of Medication Reconciliation and Orders Completedby Physician Reviewing ProviderTimmy Hayward MD at 29-Apr-2020 09:29:52 Appointments: Follow-Up Appointment 01: Physician/Dept/Negra Guerrero Reason for ReferralCOPD Call to Schedule in2 weeks Phone [phone] Follow-Up Appointment 02: Physician/Dept/Negra ePCRossana Call to Schedule in1 week Electronic Signatures: Timmy Hayward) (Signed 29-Apr-2020 09:29) Authored: Discharge Orders, Provider FINAL REVIEW of Orders, Appointments, Gold Form - Skill Training Program Coordinator Summary Last Updated: 29-Apr-2020 09:29 by Timmy Hayward) Normal [facility] History and Physical - Laureen [...] Objective: Objective Information: Objective Information T PRBPSpO2 [id number] 4% Date/Time04/29 13: 13: 13: 13: 13:09 Range(36.8C - 37.8C ) (100 - 106 ) (18 - 18 ) (116 - 132 )/ (57 - 64 ) (94% - 94% ) Highest temp of 37.8 C was recorded at 04/28 19:46 Pain reported at 04/29 7:58: 0 = None ---- Intake and Output ----- Mn/Dy/Year TimeIntakeOutputNet Apr 29, 2020 2:00 [id number] Apr 29, 2020 6:00 [id number] Apr 28, 2020 10:00 [id number] The Intake and Output Totals for the last 24 hours are: IntakeOutputNet [id number] Date: Weight/Scale Type: 29-Apr-2020 04:5284.3 kg 28-Apr-2020 [...] Updated: 29-Apr-2020 19:14 by Saul Guerrero) Normal [facility] BASIC METABOLIC PANELon 06- Anion gap [Moles/Vol] 13 mmol/L Normal 10 - 20 [facility] Comment on above: Performed By: #### B MP ####[address] [place] [address] Calcium [Mass/Vol] 9.0 mg/dL Normal 8.6 - 10.3 [facility] Comment on above: Performed By: #### B MP ####[address] [address] Chloride [Moles/Vol] 105 mmol/L Normal 98 - 107 [facility] Comment on above: Performed By: #### B MP ####[address] [place] [address] Creatinine [Mass/Vol] 0.84 mg/dL Normal 0.50 - 1.30 [facility] Comment on above: Performed By: #### B MP ####[address] [place] [address] GFR- AM. >60 Normal >60 [facility] Comment on above: Result Comment: CALC ULATIONS OF ESTIMATED GFR ARE PERFORMED USING THE MDRD STUDY EQUATION FOR THE IDMS-TRACEABLE CREATININE METHODS. CLIN CHEM 2007;53:766-72 Performed By: #### B MP ####[address] [place] [address] GFR-NON AM. >60 Normal >60 [facility] Comment on above: Performed By: #### B MP ####[address] [place] [address] Glucose [Mass/Vol] 173 mg/dL High 74 - 99 [facility] Comment on above: Performed By: #### B MP ####[address] [place] [address] HCO3 (Bld) [Moles/Vol] 25 mmol/L Normal 21 - 32 [facility] Comment on above: Performed By: #### B MP ####[facility] [place] [address] Potassium [Moles/Vol] 4.3 mmol/L Normal 3.5 - 5.3 [facility] Comment on above: Performed By: #### B MP ####[address] [place] [address] Sodium [Moles/Vol] 139 mmol/L Normal 136 - 145 [facility] Comment on above: Performed By: #### B MP ####[address] [place] [address] Urea nitrogen [Mass/Vol] 11 mg/dL Normal 6 - 23 [facility] Comment on above: Performed By: #### B MP ####[address] [address] CBCon 04-28-2020 Erythrocyte distribution width (RBC) [Ratio] 13.8 % Normal 11.5 - 14.5 [facility] Comment on above: Performed By: #### C BC ####[address] [address] Hematocrit (Bld) [Volume fraction] 41.3 % Normal 41.0 - 52.0 [facility] Comment on above: Performed By: #### C BC ####[address] [address] Hemoglobin (Bld) [Mass/Vol] 13.8 g/dL Normal 13.5 - 17.5 [facility] Comment on above: Performed By: #### C BC ####[address] [address] MCHC (RBC) [Mass/Vol] 33.4 g/dL Normal 32.0 - 36.0 [facility] Comment on above: Performed By: #### C BC ####[address] [address] MCV (RBC) [Entitic vol] 91 fL Normal 80 - 100 [facility] Comment on above: Performed By: #### C BC ####[facility] [place] [address] Platelets (Bld) [#/Vol] 239 10*3/uL Normal 150 - 450 [facility] Comment on above: Performed By: #### C BC ####[facility] [place] [address] RBC (Bld) [#/Vol] 4.52 x10E12/L Normal 4.50 - 5.90 [facility] Comment on above: Performed By: #### C BC ####[facility] [place] [address] WBC (Bld) [#/Vol] 8.4 10*3/uL Normal 4.4 - 11.3 [facility] Comment on above: Performed By: #### C BC ####[facility] [place] [address] Discharge Planning [id number] 0 04-28-2020 Discharge Planning Note2 Discharge Plann ing: Anticipated Discharge [id number] Discharge Planning 04/27/2020 patient admit to micu [...] TCC 04/28/20 1245 Social Work Note THE JEWELRY INSPECTOR HAS BEEN NOTIFIED OF THE PT'S SELF PAY STATUS. THE PT HAS BEEN ASSESSED BY THE HUMAN [employer] ON 04/27/20. THE PT HAS BEEN DEEMED FINANCIALLY ELIGIBLE FOR MEDICAID APPLICATION WITH VERBAL CONSENT OBTAINED TO ALLOW [employer] AUTHORIZED CONSTRUCTION COST ESTIMATOR IN THE MEDICAID APPLICATION PROCESS. 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 THE PT ALSO ACCEPTED THE [facility]. THE JEWELRY INSPECTOR WILL CONTINUE TO REMAIN AVAILABLE SUPPORTIVELY. Luann BOB, [facility] 04/29/2020 @ 1112 Kennel Attendant Note: SWer is assissting with D/C plan and Meds to Bed fill. SWer is going to fill scripts through [facility] and bill to the department accordingly. [...] going instructions. CTRN. Assessment: Discharge Planning Assessment [id number] Stated Reason for Admissionsob(1) [place] Lives Withfriend(s)(1) Living Arrangementsnursing home; house(1) Resource/Environmenta l Concernsnone(1) [place] Services Anticipated at Transitionnon(1) Nursing Checklist: Lines/Cathetersremove d/appropriate for next level of care Discharge Med Rec Reconciled with Jj Patient has Prescriptionsyes DME equipment orderedyes Transportation for Discharge Confirmedyes Discharge Instructions Reviewed WithPatient Discharge Instructions Outcomeverbalize recall/understanding Discharge Documentation: Discharge/Transfer Date/[id number] 13:13 Discharge Modewheelchair Transportation Methodtransportation service Valuables/Medications /Belongings Returnedyes Final DispositionHome Electronic Signatures: Leilani Valencia (VESSEL SLAGMAN) (Signed 28-Apr-2020 11:45) Authored: Discharge Planning Note2 [...] Profile - Adult v2 27-Apr-2020 11:37 Normal [facility] History and Physical - Criti [...] Objective: Objective Information: Objective Information T PRBPSpO2 [id number]/669 1% Date/Time04/28 14:18 16: 16: 16: 16:08 [...] None ---- Intake and Output ----- [facility] 28, 2020 2:00 [id number] Apr 28, 2020 6:00 [id number] Apr 27, 2020 10:00 [id number] The Intake and Output Totals for the last 24 hours are: [facility]OutFormerly [facility] [id number] Date: Weight/Scale Type: 28-Apr-2020 06:0081.3 kg / [...] 239 RDW-CV 13.8 Culture, Blood Trending View [id number] 08:33:00 27-Apr-2020 07:49:00 Culture, BloodNEGATIVE TO DATE, [...] ECGs available Confirmed by SWAPNA SHAW MD ([id number]) on 04/27/2020 7:31:04 PM Electrocardiogram 12 Lead [...] Last Updated: 28-Apr-2020 17:00 by Saul Guerrero) [facility] ARTERIAL FULL PANELon 2019 BASE EXCESS-BLOOD -1.7 mmol/L Normal -2.0 - 3.0 [facility] Comment on above: Performed By: #### A FPA3 #### [address] [address] CALCIUM,IONIZED 1.21 mmol/L Normal 1.10 - 1.33 [facility] Comment on above: Performed By: #### A FPA3 #### [address] [address] Chloride [Moles/Vol] 103 mmol/L Normal 98 - 107 [facility] Comment on above: Performed By: #### A FPA3 #### [address] [address] FIO2 28 % Normal [facility] Comment on above: Performed By: #### A FPA3 #### [address] [address] Glucose [Mass/Vol] 113 mg/dL High 74 - 99 [facility] Comment on above: Performed By: #### A FPA3 #### [address] [address] Hematocrit (Bld) [Volume fraction] 49.0 % Normal 41.0 - 52.0 [facility] Comment on above: Performed By: #### A FPA3 #### [address] [address] HGB,CALCULATED 16.5 g/dL Normal 13.5 - 17.5 [facility] Comment on above: Performed By: #### A FPA3 #### [address] [address] Lactate [Moles/Vol] 1.4 mmol/L Normal 0.4 - 2.0 [facility] Comment on above: Performed By: #### A FPA3 #### [address] [address] Oxygen (Bld) [Partial pressure] 95 mm[Hg] Normal 85 - 95 [facility] Comment on above: Performed By: #### A FPA3 #### [address] [address] PCO2 41 mmHg Normal 38 - 42 [facility] Comment on above: Performed By: #### A FPA3 #### [address] [address] pH (Bld) 7.37 [pH] Low 7.38 - 7.42 [facility] Comment on above: Performed By: #### A FPA3 #### [address] [address] Potassium [Moles/Vol] 3.8 mmol/L Normal 3.5 - 5.3 [facility] Comment on above: Performed By: #### A FPA3 #### [address] [address] RBC (Bld) [#/Vol] 23.4 mmol/L Normal 22.0 - 26.0 [facility] Comment on above: Performed By: #### A FPA3 #### [address] [address] SO2 97 % Normal 94 - 100 [facility] Comment on above: Performed By: #### A FPA3 #### [address] [address] Sodium [Moles/Vol] 137 mmol/L Normal 136 - 145 [facility] Comment on above: Performed By: #### A FPA3 #### [address] [address] Admission Risk Screen - Adul ton 04-27-2020 [...] risk with low risk for associated injury [place] Safety InterventionsWDL *orient to call system *instruct [...] Communicatenone Learning Preferencesaudio Cultural Considerationsnone Developmental Considerationsnone Quaker Considerationsnone Learning Assessment (Other Learner): Other learner [...] Spiritual Screen: Are there any cultural, spiritual, tenriism practices/values/need s that are important for us to knowno CAGE: Is this an injured patient at a Trauma Center ([facility]/[place]/[facility]/[place]): no Vaccinations: Vaccination - Influenza Vaccination Screen: Is it flu season (between and February 21)No Vaccination - Pneumonia Vaccination Screen: Patient has received a previous pneumonia vaccine:no/unknown... Immunocompetent persons with underlying chronic conditions or reside in supervisor intermediates care facilitiesnone of these conditions Persons with [...] From Triage - ED 27-Apr-2020 07:38 Normal [facility] BLOOD CULTURE, BACTERIALon 0 04-27-2020 Cholesterol [Mass/Vol] PATIENT: TIP ANSARI LOCATION: [address]#: [id number] : 84 AGE: SEX: M ORDERED BY: MELLISA WITT SOURCE: Blood COLLECTED: 04/27/20 08:33 ANTIBIOTICS AT [facility].: RECEIVED : 04/27/20 18:00 SITE: R E S U L T S BLOOD CULTURE, BACTERIAL FINAL 05/02/20 19:42 No Growth at 1 days No Growth at 2 days No Growth at 3 days No Growth at 4 days NO GROWTH - FINAL REPORT Normal [facility] Comment on above: Performed By: #### P TINR #### [address] [address] Cholesterol [Mass/Vol] PATIENT: TIP ANSARI LOCATION: [address]#: [id number] : 84 AGE: SEX: M ORDERED BY: MELLISA WITT SOURCE: Blood COLLECTED: 04/27/20 07:49 ANTIBIOTICS AT [facility].: RECEIVED : 04/27/20 18:00 SITE: R E S U L T S BLOOD CULTURE, BACTERIAL FINAL 05/02/20 19:42 No Growth at 1 days No Growth at 2 days No Growth at 3 days No Growth at 4 days NO GROWTH - FINAL REPORT Normal [facility] Comment on above: Performed By: #### P TINR #### [id number] BNPon 04-27-2020 Natriuretic peptide B (Bld) [Mass/Vol] 19 pg/mL Normal 0 - 99 [facility] Comment on above: Result Comment: . <1 00 pg/mL - Heart failure unlikely 100-299 pg/mL - Intermediate probability of acute heart . failure exacerbation. Correlate with clinical . context and patient history. >=300 pg/mL - Heart Failure likely. Correlate with clinical . context and patient history. BNP testing is performed using different testing methodology at [facility] than at other legacy [facility]. Direct result comparisons should only be made within the same method. Performed By: #### B NP2 #### [address] [address] CBC AND DIFFERENTIALon 04-27 % AUTOMATED IMMATURE GRAN 0.2 % Normal 0.0 - 0.9 [facility] Comment on above: Result Comment: [place] ture Granulocyte Count (IG) includes promyelocytes, myelocytes and metamyelocytes but does not include bands. Percent differential counts (%) should be interpreted in the context of the absolute cell counts (cells/L). Performed By: #### C BCDF #### [address] [address] Basophils (Bld) [#/Vol] 0.06 10*3/uL Normal 0.00 - 0.1 0 [facility] Comment on above: Performed By: #### C BCDF #### [address] [address] Basophils/100 WBC (Bld) 0.6 % Normal 0.0 - 2.0 [facility] Comment on above: Performed By: #### C BCDF #### [address] [address] Eosinophils (Bld) [#/Vol] 0.87 10*3/uL High 0.00 - 0.70 [facility] Comment on above: Performed By: #### C BCDF #### [address] [address] Eosinophils/100 WBC (Bld) 8.6 % Normal 0.0 - 6.0 [facility] Comment on above: Performed By: #### C BCDF #### [address] [address] Erythrocyte distribution width (RBC) [Ratio] 13.6 % Normal 11.5 - 14.5 [facility] Comment on above: Performed By: #### C BCDF #### [address] [address] Hematocrit (Bld) [Volume fraction] 49.2 % Normal 41.0 - 52.0 [facility] Comment on above: Performed By: #### C BCDF #### [address] [address] Hemoglobin (Bld) [Mass/Vol] 16.7 g/dL Normal 13.5 - 17.5 [facility] Comment on above: Performed By: #### C BCDF #### [address] [address] Lymphocytes (Bld) [#/Vol] 2.10 10*3/uL Normal 1.20 - 4.80 [facility] Comment on above: Performed By: #### C BCDF #### [address] [address] Lymphocytes/100 WBC (Bld) 20.6 % Normal 13.0 - 44.0 [facility] Comment on above: Performed By: #### C BCDF #### [address] [address] MCHC (RBC) [Mass/Vol] 33.9 g/dL Normal 32.0 - 36.0 [facility] Comment on above: Performed By: #### C BCDF #### [address] [address] MCV (RBC) [Entitic vol] 91 fL Normal 80 - 100 [facility] Comment on above: Performed By: #### C BCDF #### [address] [address] Monocytes (Bld) [#/Vol] 0.88 10*3/uL Normal 0.10 - 1.0 0 [facility] Comment on above: Performed By: #### C BCDF #### [address] [address] Monocytes/100 WBC (Bld) 8.7 % Normal 2.0 - 10.0 [facility] Comment on above: Performed By: #### C BCDF #### [address] [address] Neutrophils (Bld) [#/Vol] 6.24 10*3/uL Normal 1.20 - 7.70 [facility] Comment on above: Performed By: #### C BCDF #### [address] [address] Neutrophils/100 WBC (Bld) 61.3 % Normal 40.0 - 80.0 [facility] Comment on above: Performed By: #### C BCDF #### [address] [address] Platelets (Bld) [#/Vol] 256 10*3/uL Normal 150 - 450 [facility] Comment on above: Performed By: #### C BCDF #### [address] [address] RBC (Bld) [#/Vol] 5.41 x10E12/L Normal 4.50 - 5.90 [facility] Comment on above: Performed By: #### C BCDF #### [address] [address] WBC (Bld) [#/Vol] 10.2 10*3/uL Normal 4.4 - 11.3 [facility] Comment on above: Performed By: #### C BCDF #### [address] [address] CHEST 1 VIEWon 04-27-2020 CHEST 1 VIEW Patient Name: TIP ANSARI STUDY: CHEST 1 VIEW; 04/27/2020 8:25 am INDICATION: SOB. COMPARISON: None. ACCESSION NUMBER(S): [id number] ORDERING CLINICIAN: MELLISA WITT FINDINGS: CARDIOMEDIASTINAL SILHOUETTE AND VASCULATURE: Cardiac size: Within normal limits. Aortic shadow: Within normal limits considering portable technique Mediastinal contours: Within normal limits considering portable technique Pulmonary vasculature: Within normal limits without definite congestion LUNGS: Appears to be mild hyperinflation lungs particular at the left upper chest indicating HORSE RIDER D. The lungs are clear without discrete infiltrate. ABDOMEN AND OTHER FINDINGS: No remarkable upper abdominal findings. BONES: No acute osseous changes. IMPRESSION: 1. Mild COPD. Electronically signed by: VINCE OROZCO MD Normal [facility] COMPREHENSIVE PANELon 2019 Albumin [Mass/Vol] 4.2 g/dL Normal 3.4 - 5.0 [facility] Comment on above: Performed By: #### C MP #### [address] [address] ALP [Catalytic activity/Vol] 65 U/L Normal 33 - 120 [facility] Comment on above: Performed By: #### C MP #### [address] [address] ALT [Catalytic activity/Vol] 60 U/L High 10 - 52 [facility] Comment on above: Result Comment: Susanne ents treated with Sulfasalazine may generate falsely decreased results for ALT. Performed By: #### C MP #### [address] [address] Anion gap [Moles/Vol] 17 mmol/L Normal 10 - 20 [facility] Comment on above: Performed By: #### C MP #### [address] [address] AST [Catalytic activity/Vol] 36 U/L Normal 9 - 39 [facility] Comment on above: Performed By: #### C MP #### [address] [address] Bilirubin [Mass/Vol] 0.8 mg/dL Normal 0.0 - 1.2 [facility] Comment on above: Performed By: #### C MP #### [address] [address] Calcium [Mass/Vol] 9.5 mg/dL Normal 8.6 - 10.3 [facility] Comment on above: Performed By: #### C MP #### [address] [address] Chloride [Moles/Vol] 102 mmol/L Normal 98 - 107 [facility] Comment on above: Performed By: #### C MP #### [address] [address] Creatinine [Mass/Vol] 0.92 mg/dL Normal 0.50 - 1.30 [facility] Comment on above: Performed By: #### C MP #### [address] [address] GFR- AM. >60 Normal >60 [facility] Comment on above: Result Comment: CALC ULATIONS OF ESTIMATED GFR ARE PERFORMED USING THE MDRD STUDY EQUATION FOR THE IDMS-TRACEABLE CREATININE METHODS. CLIN CHEM 2007;53:766-72 Performed By: #### C MP #### [address] [address] GFR-NON AM. >60 Normal >60 [facility] Comment on above: Performed By: #### C MP #### [address] [address] Glucose [Mass/Vol] 118 mg/dL High 74 - 99 [facility] Comment on above: Performed By: #### C MP #### [address] [address] HCO3 (Bld) [Moles/Vol] 25 mmol/L Normal 21 - 32 [facility] Comment on above: Performed By: #### C MP #### [address] [address] Potassium [Moles/Vol] 4.0 mmol/L Normal 3.5 - 5.3 [facility] Comment on above: Performed By: #### C MP #### [address] [address] Protein [Mass/Vol] 7.8 g/dL Normal 6.4 - 8.2 [facility] Comment on above: Performed By: #### C MP #### [address] [address] Sodium [Moles/Vol] 140 mmol/L Normal 136 - 145 [facility] Comment on above: Performed By: #### C MP #### [address] [address] Urea nitrogen [Mass/Vol] 6 mg/dL Normal 6 - 23 [facility] Comment on above: Performed By: #### C MP #### [address] [address] COOX PANEL, ARTERIALon 04-27 GUILLE'S TEST[COLLATERAL CIRCULATION] Yes Normal [facility] Comment on above: Performed By: #### C OOXA #### [address] [address] Performed By: #### A FPA3 #### [address] [address] DEOXY HGB 3.0 % Normal 0.0 - 5.0 [facility] Comment on above: Performed By: #### C OOXA #### [place] [address] Hemoglobin (Bld) [Mass/Vol] 1.1 % Normal [facility] Comment on above: Result Comment: REF VALUES NONSMOKERS 0.5-1.5% SMOKERS 0.5-10.0% Performed By: #### C OOXA #### [place] [address] Hemoglobin (Bld) [Mass/Vol] 16.5 g/dL Normal 13.5 - 17.5 [facility] Comment on above: Performed By: #### C OOXA #### [place] [address] MET HGB 0.6 % Normal 0.0 - 1.5 [facility] Comment on above: Performed By: #### C OOXA #### [place] [address] OXY HGB 95.3 % Normal 94.0 - 98.0 [facility] Comment on above: Performed By: #### C OOXA #### [place] [address] CORONAVIRUS 2019 BY PCRon CORONAVIRUS 2019,PCR NOT DETECTED Normal Not Detected [facility] Comment on above: Result Comment: This assay is designed to detect the RdRp gene of SARS-CoV-2 via nucleic acid amplification. A Not Detected result does not preclude COVID-19 infection since the adequacy of sample collection and/or low viral burden may result in presence of viral nucleic acids below the clinical sensitivity of this test method. Fact sheet for providers: www.fda.gov/media/720432/download Fact sheet for patients: www.fda.gov/media/803046/download This test has received FDA Emergency Use Authorization (EUA) and has been verified by [facility] ([facility]). This test is only authorized for the duration of time that circumstances exist to justify the authorization of the emergency use of in vitro diagnostic tests for the detection of SARS-CoV-2 virus and/or diagnosis of COVID-19 infection under section 564(b)(1) of the Act, 21 U.S.C. 360bbb-3(b)(1), unless the authorization is terminated or revoked sooner. [facility] is certified under CLIA-88 as qualified to perform high complexity testing. Testing is performed in the [facility] laboratory located at [address] [place] [address]. Performed By: #### C OV19 #### [place] [address] Lab Specimen Source Nasal, Nasopharyngeal Normal [facility] Comment on above: Performed By: #### C OV19 #### [place] [address] History and Physical - Criti hemalatha Kashif [...] Objective: Objective Information: Objective Information T PRBPSpO2 [id number]/809 5% Date/Time04/27 7: 11: 11: 11: 11:35 [...] Blood Gas Results 04/27/2020 08:20 pO295 pH7.37 [id number] SO297 Base Excess-1.7 Olgbiflsrwk75.4 I have reviewed these laboratory results: Culture, Blood Trending View [id number] 08:33:00 27-Apr-2020 07:49:00 Culture, BloodNEGATIVE TO DATE, [...] Updated: 27-Apr-2020 21:32 by Saul Guerrero) Normal [facility] LACTATEon 04-27-2020 Lactate [Moles/Vol] 1.6 mmol/L Normal 0.4 - 2.0 [facility] Comment on above: Result Comment: Jane puncture immediately after or during the administration of Metamizole may lead to falsely low results. Testing should be performed immediately prior to Metamizole dosing. Performed By: #### L ACT ####[facility] [place] [address] PT/INRon 04-27-2020 INR Coag (PPP) [Relative time] 1.1 {INR} Normal 0.9 - 1.1 [facility] Comment on above: Performed By: #### P TINR #### [address] [address] PT Coag (PPP) [Time] 13.2 s Normal 10.1 - 13.3 [facility] Comment on above: Result Comment: Note new reference range as of 04/05/2020. Performed By: #### P TINR #### [address] [address] Patient Profile - Adult v2on 04-27-2020 Patient Profile - Adult v2 Profile: Initial Info: How to be Addressednick Spoken Language PreferredEnglish Source of Informationpatient Are you currently using the Personal Electronic Health Record or 7writeno Stated Reason for Admissionsob Limitations on Visitors/Phone Callsnone Wants Family/Rep Notified of Admissionno Notify PCPdo not notify PCP Informed of Patient Visiting Rightsyes [place] Employment Statusemployed Patient Belongingsremains with patient Patient Belongings Remaining with Patientcash/credit card; cell phone/electronics; clothing Medications Brought to Hospitalno General Health: Weight in kg80.7 kilogram(s) Weight in ggh293.9 pound(s) Height in feet6 feet Height in inches1 inch(es) Height in cm185.4 centimeter(s) BMI (kg/m2)23.477 square meter Weight Methodactual (measured) Scale Typebed Height Methodstated [facility] Based Care: How would you like [...] home; house Resource/Environmenta l Concernsnone [place]ticipated [place] Anticipated at Transitionnone Significant IndicatorsComplete Information Review: Allergies, Home Meds and Significant Events have been Reviewed and Verified with Patient/Familyyes ALLERGY, INTOLERANCE, ADVERSE EVENT: Allergies: penicillin: Drug, Unknown, Active Electronic Signatures: Sowmya Cristobal (ANSELMO) (Signed 27-Apr-2020 11:41) Authored: Profile, Additional Information Last Updated: 27-Apr-2020 11:41 by Sowmya Cristobal (ANSELMO) [facility] Provider Note - ED v2on 04-11 Provider [...] SIGNS: T PRBP SpO2O2(LPM) %FiO2 Method 27-Apr-2020 07:38:[id number] /108 91 room air, no respiratory support [...] Case is discussed with Dr. Guerrero the automatic punch press operator, who kindly agrees to except patient onto [...] From Triage - ED 27-Apr-2020 07:38 Normal [facility] TROPONIN Ion 04-27-2020 Troponin I.cardiac [Mass/Vol] ng/mL Normal 0.00 - 0.03 [facility] Comment on above: Result Comment: [...] is performed using different testing methodology at [facility] than at other legacy [facility]. Direct result comparisons should only be made within the same method. Performed By: #### T ROP2 #### [address] [address] Triage - EDon 04-27-2020 Triage - ED [...] BMI (kg/m2): 25.019 Calculated BSA (m2) 2.10 [place] Coma Scale: Best Eye Response: (E4) spontaneous Best Motor Response: (M6) obeys commands Best Verbal Response: (V5) oriented [place] Score: 15 Cough lasting greater than 3 [...] 27-Apr-2020 07:58 by Abundio Ayon (MONCHO) Normal [facility] Vital Signs Date Time Vital Sign Value Performing Clinician Jagjit pryor 01-30-2024 17:17-0400 Body mass index (BMI) [Ratio] 24.41 kg/m2 Stu Lisa MD Work Phone: [facility] 01-30-2024 17:17-0400 Body temperature 98.4 [degF] Stu Lisa MD Work Phone: [facility] [email or web address] 01-30-2024 17:17-0400 Body weight 83.92 kg Stu Lisa MD Work Phone: [facility] [email or web address] 01-30-2024 17:17-0400 Diastolic blood pressure 77 mm[Hg] Stu Lisa MD Work Phone: [facility] [email or web address] 01-30-2024 17:17-0400 Heart rate 91 /min Stu Lisa MD Work Phone: [facility] [email or web address] 01-30-2024 17:17-0400 Respiratory rate 16 /min Stu Lisa MD Work Phone: [facility] [email or web address] 01-30-2024 17:17-0400 SaO2% (BldA) [Mass fraction] 97 % Stu Lisa MD Work Phone: [facility] [email or web address] 01-30-2024 17:17-0400 Systolic blood pressure 106 mm[Hg] Stu Lisa MD Work Phone: [facility] [email or web address] 07-09-2022 13:30-0400 Body temperature 98.4 [degF] Marisol Andrea MD Work Phone (unformatted): [phone] [facility] [email or web address] 07-09-2022 13:30-0400 Diastolic blood pressure 71 mm[Hg] Marisol Andrea MD Work Phone (unformatted): [phone] [facility] [employer] 07-09-2022 13:30-0400 Heart rate 84 /min Marisol Andrea MD Work Phone (unformatted): [phone] [facility] [employer] 07-09-2022 13:30-0400 Respiratory rate 18 /min Marisol Andrea MD Work Phone (unformatted): [phone] [facility] [email or web address] 07-09-2022 13:30-0400 SaO2% (BldA) [Mass fraction] 97 % Marisol Andrea MD Work Phone (unformatted): [phone] [facility] [email or web address] 07-09-2022 13:30-0400 Systolic blood pressure 109 mm[Hg] Marisol Andrea MD Work Phone (unformatted): [phone] [facility] [email or web address] 07-02-2022 14:07-0400 Body temperature 99 [degF] Marisol Andrea MD Work Phone (unformatted): [phone] [facility] [employer] 07-02-2022 14:07-0400 Diastolic blood pressure 84 mm[Hg] Marisol Andrea MD Work Phone (unformatted): [phone] [facility] [employer] 07-02-2022 14:07-0400 Heart rate 101 /min Marisol Andrea MD Work Phone (unformatted): [phone] [facility] [email or web address] 07-02-2022 14:07-0400 Respiratory rate 18 /min Marisol Andrea MD Work Phone (unformatted): [phone] [facility] [email or web address] 07-02-2022 14:07-0400 SaO2% (BldA) [Mass fraction] 96 % Marisol Andrea MD Work Phone (unformatted): [phone] [facility] [email or web address] 07-02-2022 14:07-0400 Systolic blood pressure 123 mm[Hg] Marisol Andrea MD Work Phone (unformatted): [phone] [facility] [email or web address] 06-21-2022 06:35-0400 Body temperature 97.5 [degF] Mick Martin MD Work Phone: [facility] [email or web address] 06-21-2022 06:35-0400 Diastolic blood pressure 74 mm[Hg] Mick Martin MD Work Phone: [facility] [email or web address] 06-21-2022 06:35-0400 Heart rate 91 /min Mick Martin MD Work Phone: [facility] [email or web address] 06-21-2022 06:35-0400 Respiratory rate 23 /min Mick Martin MD Work Phone: [facility] [email or web address] 06-21-2022 06:35-0400 SaO2% (BldA) [Mass fraction] 93 % Mick Martin MD Work Phone: [employer] 06-21-2022 06:35-0400 Systolic blood pressure 109 mm[Hg] Mick Martin MD Work Phone: [facility] [email or web address] 06-20-2022 05:41-0400 Body mass index (BMI) [Ratio] 24.9 kg/m2 Mick Martin MD Work Phone: [facility] [email or web address] 06-20-2022 05:41-0400 Body weight 85.6 kg Mick Martin MD Work Phone: [employer] 06-18-2022 06:00-0400 Body height 185.4 cm Mick Martin MD Work Phone: [employer] 05-08-2022 07:30-0400 Body temperature 98.6 [degF] Johann Rodriguez DO Work Phone: [employer] 05-08-2022 07:30-0400 Diastolic blood pressure 83 mm[Hg] Johann Rodriguez DO Work Phone: [employer] 05-08-2022 07:30-0400 Heart rate 104 /min Johann Rodriguez DO Work Phone: [employer] 05-08-2022 07:30-0400 Respiratory rate 16 /min Johann Rodriguez DO Work Phone: [employer] 05-08-2022 07:30-0400 SaO2% (BldA) [Mass fraction] 99 % Johann Rodriguez DO Work Phone: [employer] 05-08-2022 07:30-0400 Systolic blood pressure 116 mm[Hg] Johann Rodriguez DO Work Phone: [employer] 05-07-2022 05:05-0400 Body mass index (BMI) [Ratio] 21.45 kg/m2 Johann Rodriguez DO Work Phone: [employer] 05-07-2022 05:05-0400 Body weight 73.75 kg Johann Rodriguez DO Work Phone: [facility] [email or web address] 05-06-2022 04:45-0400 Body height 185.4 cm Johann oRdriguez DO Work Phone: [facility] [email or web address] 05-06-2022 02:30-0400 Diastolic blood pressure 85 mm[Hg] Mallika Jose DO Work Phone: [facility] [email or web address] 05-06-2022 02:30-0400 Heart rate 89 /min Mallika Garcia DO Work Phone: [facility] [email or web address] 05-06-2022 02:30-0400 Respiratory rate 16 /min Mallika Garcia DO Work Phone: [facility] [email or web address] 05-06-2022 02:30-0400 SaO2% (BldA) [Mass fraction] 97 % Mallika Garcia DO Work Phone: [facility] [email or web address] 05-06-2022 02:30-0400 Systolic blood pressure 116 mm[Hg] Mallika Garcia DO Work Phone: [facility] [email or web address] 05-05-2022 20:17-0400 Body height 185.4 cm Mallika Jose DO Work Phone: [facility] [email or web address] 05-05-2022 20:17-0400 Body mass index (BMI) [Ratio] 23.75 kg/m2 Mallika Garcia DO Work Phone: [facility] [email or web address] 05-05-2022 20:17-0400 Body temperature 99 [degF] Mallika Garcia DO Work Phone: [facility] [email or web address] 05-05-2022 20:17-0400 Body weight 81.65 kg Mallika Jose DO Work Phone: [facility] [employer] 01-30-2022 14:15-0400 Heart rate 113 /min Florencia Canela MD Work Phone: [employer] 01-30-2022 14:15-0400 Respiratory rate 24 /min Florencia Canela MD Work Phone: [employer] 01-30-2022 14:15-0400 SaO2% (BldA) [Mass fraction] 95 % Florencia Canela MD Work Phone: [employer] 01-30-2022 11:20-0400 Body temperature 98.2 [degF] Florencia Canela MD Work Phone: [employer] [facility] 01-30-2022 11:20-0400 Diastolic blood pressure 94 mm[Hg] Florencia Canela MD Work Phone: [employer] 01-30-2022 11:20-0400 Systolic blood pressure 142 mm[Hg] Florencia Canela MD Work Phone: [employer] 01-29-2022 12:19-0400 Body height 182.9 cm Florencia Canela MD Work Phone: [employer] 01-29-2022 06:00-0400 Body mass index (BMI) [Ratio] 23.68 kg/m2 Florencia Canela MD Work Phone: [employer] 01-29-2022 06:00-0400 Body weight 79.2 kg Florencia Canela MD Work Phone: [employer] 01-20-2022 20:17-0500 Diastolic blood pressure 80 mm[Hg] Nicholas Martinez MD Work Phone: [employer] 01-20-2022 20:17-0500 Heart rate 118 /min Nicholas Martinez MD Work Phone: [employer] 01-20-2022 20:17-0500 Respiratory rate 24 /min Nicholas Martinez MD Work Phone: [employer] 01-20-2022 20:17-0500 SaO2% (BldA) [Mass fraction] 98 % Nicholas Martinez MD Work Phone: [employer] 01-20-2022 20:17-0500 Systolic blood pressure 123 mm[Hg] Nicholas Martinez MD Work Phone: [employer] 01-20-2022 19:40-0500 Body temperature 99.5 [degF] Nicholas Martinez MD Work Phone: [employer] 01-20-2022 17:47-0500 Body mass index (BMI) [Ratio] 21.24 kg/m2 Nicholas Martinez MD Work Phone: [employer] 01-20-2022 17:47-0500 Body weight 73.03 kg Nicholas Martinez MD Work Phone: [facility] [facility] 01-10-2022 21:00-0500 Diastolic blood pressure 88 mm[Hg] Jessica Barrow MD Work Phone: [employer] 01-10-2022 21:00-0500 Heart rate 105 /min Jessica Barrow MD Work Phone: [facility] 01-10-2022 21:00-0500 Respiratory rate 17 /min Jessica Barrow MD Work Phone: [employer] [facility] 01-10-2022 21:00-0500 SaO2% (BldA) [Mass fraction] 95 % Jessica Barrow MD Work Phone: [facility] 01-10-2022 21:00-0500 Systolic blood pressure 151 mm[Hg] Jessica Barrow MD Work Phone: [facility] [facility] 01-10-2022 18:09-0500 Body temperature 99.7 [degF] Jessica Barrow MD Work Phone: [employer] 12-20-2021 13:54-0500 Heart rate 97 /min Palomo Drummond MD Work Phone: [facility] [facility] 12-20-2021 13:54-0500 SaO2% (BldA) [Mass fraction] 96 % Palomo Drummond MD Work Phone: [employer] 12-20-2021 07:32-0500 Body temperature 98.8 [degF] Palomo Drummond MD Work Phone: [employer] 12-20-2021 07:32-0500 Diastolic blood pressure 82 mm[Hg] Plaomo Drummond MD Work Phone: [facility] [facility] 12-20-2021 07:32-0500 Respiratory rate 16 /min Palomo Drummond MD Work Phone: [employer] 12-20-2021 07:32-0500 Systolic blood pressure 112 mm[Hg] Palomo Drummond MD Work Phone: [employer] 12-19-2021 15:13-0500 Body height 185.4 cm Palomo Drummond MD Work Phone: [employer] 12-18-2021 02:57-0500 Body mass index (BMI) [Ratio] 22.72 kg/m2 Palomo Drummond MD Work Phone: [employer] 12-18-2021 02:57-0500 Body weight 78.11 kg Palomo Drummond MD Work Phone: [employer] 05-29-2021 17:42-0400 Diastolic blood pressure 84 mm[Hg] [employer] Phone: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 05/06/2022 [employer] Phone: Comment on above: One Time for 1 Occurrences starting 04/12 until 05/06/2022 End: 05-06-2022 Wound Gram stain Wound Gram stain Microbiology Routine One Time for 1 Occurrences starting 05/06/2022 until 05/06/2022 [facility] Work Phone: Comment on above: One Time for 1 Occurrences starting 04/12 until 05/06/2022 Payers Date Payer Category Payer Unknown [id number] [id number] 1982 Unknown [id number] 2.16.84 [id number] 1982 Unknown [id number] 2.16.8 [id number] 1982 Unknown [id number] 2.16.8 [id number] 1982 Unknown [id number] 2.16.8 [id number] 1982 Unknown [id number] 2.16.8 [id number] 1982 Unknown [id number] 2.16.8 [id number] 1982 Unknown [id number] 2.16.8 [id number] 1982 Unknown [id number] 2.16. [id number] 1982 Unknown [id number] 2.16.8 [id number] 1982 Unknown [id number] 2.16.8 [id number] 1957 Medicaid [id number]. [id number] Social History Date Type Detail Facility Start: 12-16-2020 End: 09-05-2022 Tobacco smoking status [facility] Former smoker [place], [place] Start: 12-16-2020 End: 09-05-2022 Tobacco use and exposure [facility] Start: 12-16-2020 End: 01-30-2024 Alcohol intake Current non-drinker of alcohol (finding) [place], [place] Start: 1980 [facility]igned At [facility] Start: 12-21-2021 End: 06-15-2022 Exposure to SARS-CoV-2 (event) Not sure [place], [place] History of tobacco use Current smoker [facility] [employer] Work Phone: Start: 11-12-2023 History of Social function [facility] Start: 11-12-2023 Tobacco use panel [facility] Clinical Notes 05-29-2021 to 01-30-2024 Discharge InstructionsAttachIsauro Granger RN - 06/21/2022 4:36 PM EDConnie Granger RN - 06/21/2022 4:11 PM EDViki Perez MD - 06/21/2022 11:24 AM EDTDischarge Instr - Activity Note Date & Type Note Facility 01-30-2024 Hospital Discharge instructions Falguni Wan APRN - CNP - 01/30/2024 6:12 PM EDT Call [phone] ([phone]) to establish care for follow up. You can also call [facility] Link at [phone] to establish care. The following attachments cannot be sent through Care Everywhere.Influenza (Chilean)documented in this encounter [facility] 04-16-2023 Note Attestation signed by Jose Rafael An MD at 04/17/2023 11:18 AM Seen and discussed with fellow, agree with assessment and plan. [facility] Gastroenterology New Patient Visit - History [...] Acute hypokalemia Acute osteomyelitis of left calcaneus ([facility]/HCC) Acute respiratory failure with hypoxia ([facility]/HCC) Acute septic pulmonary embolism without acute cor pulmonale ([facility]/HCC) Bloody diarrhea Elevated C-reactive protein (CRP) Elevated procalcitonin Endocarditis 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CMS/HCC) Chronic hepatitis C without hepatic coma (CMS/HCC) Hepatitis C virus infection without hepatic coma Heroin abuse (CMS/HCC) Hyperglycemia Hyperkalemia IVDU (intravenous drug user) Lower extremity edema Moderate protein-calorie malnutrition (CMS/HCC) Moderate tricuspid regurgitation MRSA bacteremia Normocytic normochromic anemia Opiate withdrawal (CMS/HCC) Sepsis ([facility]/HCC) Sepsis due to Nathaniel species without acute organ dysfunction ([facility]/HCC) Septic bursitis Septic embolism ([facility]/HCC) Sinus tachycardia SIRS (systemic inflammatory response syndrome) ([facility]/HCC) Staphylococcal arthritis of left ankle (CMS/HCC) Staphylococcal [...] and no supraclavic (more content not included)... [facility] 06-21-2022 History of Present illness Narrative Discharged via ambulation with commercial real estate underwriter to front door. Patient's aunt picking patient up. Patient left with belongings and dc instructions. Meds with patient at dc. Patient up in room and in bed at intervals. States his aunt will pick him up. Images from the original note were not included. [facility] Office: [phone] Mikie Rodriguez DO, Theo Lerma DO, Stuart [...] Rea, PABLO, Deysi Pablo, PABLO, Shelli Menon, COMPRESSOR STATION ENGINEER CHIEF, Tika Hernandez, COMPRESSOR STATION ENGINEER CHIEF, Cathleen Moran, AUTOMOBILE SERVICE STATION MANAGER, Razia Figueroa, FÉLIX, Madalyn Julien, PABLO, Amie Richardson, PABLO, Mary Meléndez, PABLO [facility] IN-PATIENT SERVICE [facility] Progress Note 06/21/2022 11:24 AM Name: Tip Ansari Acct: [id number] Room: [address] [place] [address] Day: 6 Admit Date: 06/15/2022 4:29 PM [...] repeat CT chest 03/05 but went to [facility] due to a IVDU relapse 05/06/22 Review [...] drug use. Drugs: Cocaine, Opiates , Marijuana ([place]), and Methamphetamines (Crystal Meth). He reports that [...] Value Date/Time PHART 7.380 12/16/2020 09:20 AM [id number] 44.5 12/16/2020 09:20 AM PO2ART 94.4 12/16/2020 09:20 AM [id number] 25.7 12/16/2020 09:20 AM NBEA NOT REPORTED 12/16/2020 09:20 AM PBEA 0.3 12/16/2020 09:20 AM [id number] 97.1 12/16/2020 09:20 AM FIO2 28 12/16/2020 [...] Nathaniel species without acute organ dysfunction ([facility] 06/17/2022 Yes IVDU (intravenous drug user) 06/21/2022 Yes SIRS (systemic inflammatory response syndrome) ([facility]) 06/20/2022 Yes Acute septic pulmonary embolism without acute cor pulmonale ([facility]) 06/20/2022 Yes Elevated procalcitonin 06/20/2022 Yes CRP elevated 06/20/2022 Yes Septic embolism ([facility]) 06/17/2022 Yes Normocytic normochromic anemia 06/17/2022 Yes Subacute right-sided infective endocarditis 06/17/2022 Yes 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[facility]) 06/20/2022 Yes Plan: 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 Infectious disease following. Not candidate for valvular repair IVDA: pt without evidence of withdrawal, has been on suboxone in past, but this cannot be administered in current [facility] Normocytic normochromic anemia : monitor hgb, transfuse [...] follow-up DC order in place, pt needs detention information Cannot go to SNF as he does not qualify Alberto Perez MD 06/21/2022 11:24 AM CLINICAL PHARMACY NOTE: MEDS TO BEDS Total # of Prescriptions Filled: 1 The following medications were delivered to the patient: fluconazole Additional Documentation: Discharge instructions given to patient. Patient instructed to call outpatient pharmacy in AM to set up plan to get Diflucan. Patient agrees. Pulp Machine Operator attempted to contact outpatient pharmacy at 1800 but they were closed. Images from the original note were not included. [facility] Office: [phone] Mikie Rodriguez DO, Theo Lerma DO, Stuart Natarajan DO, Harpal Tran DO, Prashanth Sadler MD, Deana Raza MD, Florencia Canlea MD, Tess Ford MD, Leodan Mak MD, [...] Abraham PA-C, Eli Fu DNP, Keri Walker COMPRESSOR STATION ENGINEER CHIEF, Sherrie Rea COMPRESSOR STATION ENGINEER CHIEF, Deysi Pablo, COMPRESSOR STATION ENGINEER CHIEF, Shelli Menon COMPRESSOR STATION ENGINEER CHIEF, Tika Hernandez, COMPRESSOR STATION ENGINEER CHIEF, Cathleen Moran, AUTOMOBILE SERVICE STATION MANAGER, Razia Figueroa DNP, Madalyn Julien, COMPRESSOR STATION ENGINEER CHIEF, Amie Richardson, COMPRESSOR STATION ENGINEER CHIEF, Mary Meléndez, COMPRESSOR STATION ENGINEER CHIEF [facility] IN-PATIENT SERVICE [facility] Progress Note 06/20/2022 10:46 AM Name: Tip Ansari Acct: [id number] Room: [facility]0430-01 Day: 5 Admit Date: 06/15/2022 4:29 PM [...] repeat CT chest 03/05 but went to fci due to a IVDU relapse 05/06/22 Review [...] disease) (HCC), Depression, and Drug addiction ([facility]). Social History: reports that he has quit smoking. He has never used smokeless tobacco. He reports current drug use. Drugs: Cocaine, Opiates , Marijuana ([place]), and Methamphetamines (Crystal Meth). He reports that [...] Value Date/Time PHART 7.380 12/16/2020 09:20 AM [id number] 44.5 12/16/2020 09:20 AM PO2ART 94.4 12/16/2020 09:20 AM MON5KMP 25.7 12/16/2020 09:20 AM NBEA NOT REPORTED 12/16/2020 09:20 AM PBEA 0.3 12/16/2020 09:20 AM [id number] 97.1 12/16/2020 09:20 AM FIO2 28 12/16/2020 [...] Yes SIRS (systemic inflammatory response syndrome) ([facility]ERLY [facility]) 06/20/2022 Yes Acute septic pulmonary embolism without [...] but this cannot be administered in current fci Normocytic normochromic anemia : monitor hgb, transfuse [...] from the original note were not included. [facility] Occupational Therapy Not Seen Note DATE: 06/20/2022 [...] CRP procal elevation Chills and fever in fci Relapsed drug use SIRS + tachycardia and [...] repeat CT chest 03/05 but went to fci Allergy to PNC as a child, but [...] Unclear if he ll go back to fci or will be released Infection Control Recommendations [place] Precautions Contact Isolation Antimicrobial Stewardship Recommendations Simplification [...] repeat CT chest 03/05 but went to fci due to a IVDU relapse 05/06/22 Called from fci 06/15 for chills headaches getting worse and some LGF - sent to [facility] and seen now in ER - [...] performed by Tip Grewal DPM at [facility] OR FOOT SURGERY Left 01/26/2022 INCISION [...] use: Yes Types: Cocaine, Opiates , Marijuana ([place]), Methamphetamines (Crystal Meth) Comment: last use 05/05 [...] Saenz MD PGY-1, Department of Internal Medicine [facility], [place], [place] I have discussed the care of [...] from the original note were not included. [facility] Office: [phone] Mikie Rodriguez DO, Theo Lerma DO, Stuart [...] Avila MD, Lyle Woods MD, Teresa Quintero, COMPRESSOR STATION ENGINEER CHIEF, Leslie Rao, COMPRESSOR STATION ENGINEER CHIEF, Ro Bernard, COMPRESSOR STATION ENGINEER CHIEF, Carter Charles, COMPRESSOR STATION ENGINEER CHIEF, KO HunterC, Eli Fu, DNP, Keri Walker, COMPRESSOR STATION ENGINEER CHIEF, Sherrie Rea, COMPRESSOR STATION ENGINEER CHIEF, Deysi Pablo, COMPRESSOR STATION ENGINEER CHIEF, Shelli Menon, COMPRESSOR STATION ENGINEER CHIEF, Tika Hernandez, COMPRESSOR STATION ENGINEER CHIEF, Cathleen Moran, AUTOMOBILE SERVICE STATION MANAGER, Razia Figueroa, DNP, Madalyn Julien, COMPRESSOR STATION ENGINEER CHIEF, Amie Richardson, COMPRESSOR STATION ENGINEER CHIEF, Mary Meléndez, COMPRESSOR STATION ENGINEER CHIEF [facility] IN-PATIENT SERVICE [facility] Progress Note 06/19/2022 1:11 PM Name: Tip Ansari Acct: [id number] Room: [address] [place] [address] Day: 4 Admit Date: 06/15/2022 4:29 PM [...] repeat CT chest 03/05 but went to fci due to a IVDU relapse 05/06/22 Review [...] drug use. Drugs: Cocaine, Opiates , Marijuana ([place]), and Methamphetamines (Crystal Meth). He reports that [...] RDW, PLT, MPV, SEDRATE, CRP, INR, DDIMER, DS0ZIQTB, LABABSO in the last 72 hours. Invalid [...] Value Date/Time PHART 7.380 12/16/2020 09:20 AM [id number] 44.5 12/16/2020 09:20 AM PO2ART 94.4 12/16/2020 09:20 AM IMW2FXB 25.7 12/16/2020 09:20 AM NBEA NOT REPORTED 12/16/2020 09:20 AM PBEA 0.3 12/16/2020 09:20 AM [id number] 97.1 12/16/2020 09:20 AM FIO2 28 12/16/2020 [...] Nathaniel species without acute organ dysfunction ([facility]) 06/17/2022 Yes IV drug abuse (HCC) 06/17/2022 Yes Septic embolism ([facility]) 06/17/2022 Yes Normocytic normochromic anemia 06/17/2022 Yes Subacute right-sided infective endocarditis 06/17/2022 Yes Plan: 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 Infectious disease following. Not candidate for valvular repair IVDA: pt without evidence of withdrawal, has been on suboxone in past, but this cannot be administered in current fci Normocytic normochromic anemia : monitor hgb, transfuse as need for symptomatic anemia or hgb <7 COPD not in acute exacerbation : nebulizer prn PTOT Diet as tolerated Labs, imaging, ECG reviewed PTOT DC planning to follow - we need to figure out with CM where pt can go with IV abx - which will be coordinated with nurse @ [facility] - may need transfer to [facility]ci where IV abx can be administered Alberto Perez MD 06/19/2022 1:11 PM [facility] Pharmacokinetic Monitoring Service - Vancomycin [...] CRP procal elevation Chills and fever in fci Relapsed drug use SIRS + tachycardia and [...] repeat CT chest 03/05 but went to fci Allergy to PNC as a child, but [...] Unear if he ll go back to fci or will be released Infection Control Recommendations [place] Precautions Contact Isolation Antimicrobial Stewardship Recommendations Simplification [...] repeat CT chest 03/05 but went to fci due to a IVDU relapse 05/06/22 Called from fci 06/15 for chills headaches getting worse and some LGF - sent to [facility] and seen now in ER - [...] DRAINAGE, BONE LEFT CALCANEOUS performed by Tip Gerwal DPM at [facility] OR FOOT SURGERY Left 01/26/2022 INCISION [...] use: Yes Types: Cocaine, Opiates , Marijuana ([place]), Methamphetamines (Crystal Meth) Comment: last use 05/05 [...] Saenz MD PGY-1, Department of Internal Medicine [facility], [place], [place] I have discussed the care of the patient, including pertinent history and exam findings, with the resident. I have seen and examined the patient and the hall elements of all parts of the encounter have been performed by me. I agree with the assessment, plan and orders as documented by the resident. Marisol Andrea, Infectious Diseases [facility] Office: [phone] Mikie Rodriguez DO, Theo Lerma DO, Stuart [...] Avila MD, Lyle Woods MD, Teresa Quintero, COMPRESSOR STATION ENGINEER CHIEF, Leslie Roa, COMPRESSOR STATION ENGINEER CHIEF, Ro Bernard, COMPRESSOR STATION ENGINEER CHIEF, Carter Charles, COMPRESSOR STATION ENGINEER CHIEF, Mckayla Abraham PA-C, Eli Fu, DNP, Keri Walker, COMPRESSOR STATION ENGINEER CHIEF, Sherrie Rea, COMPRESSOR STATION ENGINEER CHIEF, Deysi Pablo, COMPRESSOR STATION ENGINEER CHIEF, Shelli Menon, COMPRESSOR STATION ENGINEER CHIEF, Tika Hernandez, COMPRESSOR STATION ENGINEER CHIEF, Cathleen Moran, AUTOMOBILE SERVICE STATION MANAGER, Razia Figueroa, FÉLIX, Madalyn Julien COMPRESSOR STATION ENGINEER CHIEF, Amie Richardson, COMPRESSOR STATION ENGINEER CHIEF, Mary Meléndez, COMPRESSOR STATION ENGINEER CHIEF [facility] Nighttime In-House Provider 06/19/2022 2:38 AM Name: Tip Ansari Acct: [id number] Room: IP Day: 4 Admit Date: 06/15/2022 [...] Chronic hepatitis C without hepatic coma ([facility]), COPD (chronic obstructive pulmonary disease) ([facility]), Depression, and Drug addiction ([facility]). Vitals: BP 114/82 Pulse 77 Temp 98.4 [...] from the original note were not included. [facility] Office: [phone] Mikie Rodriguez DO, Theo Lerma DO, Stuart [...] Avila MD, Lyle Woods MD, Teresa Quintero, COMPRESSOR STATION ENGINEER CHIEF, Leslie Rao, COMPRESSOR STATION ENGINEER CHIEF, Ro Bernard, COMPRESSOR STATION ENGINEER CHIEF, Carter Charles, COMPRESSOR STATION ENGINEER CHIEF, KO HunterC, Eli Fu, DNP, Keri Walker, COMPRESSOR STATION ENGINEER CHIEF, Sherrie Rea, COMPRESSOR STATION ENGINEER CHIEF, Deysi Pablo, COMPRESSOR STATION ENGINEER CHIEF, Shelli Menon, COMPRESSOR STATION ENGINEER CHIEF, Tika Hernandez, COMPRESSOR STATION ENGINEER CHIEF, Cathleen Moran, AUTOMOBILE SERVICE STATION MANAGER, Razia Figueroa, FÉLIX, Madalyn Julien, COMPRESSOR STATION ENGINEER CHIEF, Amie Richardson, COMPRESSOR STATION ENGINEER CHIEF, Mary Meléndez, COMPRESSOR STATION ENGINEER CHIEF [facility] IN-PATIENT SERVICE [facility] Progress Note 06/18/2022 2:40 PM Name: Tip Ansari Acct: [id number] Room: [address] [place] [address] Day: 3 Admit Date: 06/15/2022 4:29 PM [...] repeat CT chest 03/05 but went to fci due to a IVDU relapse 05/06/22 Review [...] drug use. Drugs: Cocaine, Opiates , Marijuana ([place]), and Methamphetamines (Crystal Meth). He reports that [...] Value Date/Time PHART 7.380 12/16/2020 09:20 AM [id number] 44.5 12/16/2020 09:20 AM PO2ART 94.4 12/16/2020 09:20 AM UMJ0WLI 25.7 12/16/2020 09:20 AM NBEA NOT REPORTED 12/16/2020 09:20 AM PBEA 0.3 12/16/2020 09:20 AM [id number] 97.1 12/16/2020 09:20 AM FIO2 28 12/16/2020 [...] PTOT Sophia Agustin DO 06/18/2022 2:40 PM [facility] Pharmacokinetic Monitoring Service - Vancomycin [...] CRP procal elevation Chills and fever in fci Relapsed drug use SIRS + tachycardia and [...] repeat CT chest 03/05 but went to fci Allergy to PNC as a child, but [...] evidence of infectious seeding. Infection Control Recommendations [place] Precautions Contact Isolation Antimicrobial Stewardship Recommendations Simplification [...] repeat CT chest 03/05 but went to fci due to a IVDU relapse 05/06/22 Called from fci 06/15 for chills headaches getting worse and some LGF - sent to [facility] and seen now in ER - [...] performed by Tip Grewal DPM at [facility] OR FOOT SURGERY Left 01/26/2022 INCISION [...] use: Yes Types: Cocaine, Opiates , Marijuana ([place]), Methamphetamines (Crystal [place]) Comment: last use 05/05 [...] Saenz MD PGY-1, Department of Internal Medicine [facility], [place], [place] I have discussed the care of [...] from the original note were not included. [facility] Office: [phone] Mikie Rodriguez DO, Theo Lerma DO, Stuart [...] Avila MD, Lyle Woods MD, Teresa Quintero, COMPRESSOR STATION ENGINEER CHIEF, Leslie Rao, COMPRESSOR STATION ENGINEER CHIEF, oR Bernard, COMPRESSOR STATION ENGINEER CHIEF, Carter Charles, COMPRESSOR STATION ENGINEER CHIEF, KO HunterC, Eli Fu, DNP, Keri Walker, COMPRESSOR STATION ENGINEER CHIEF, Sherrie Rea, COMPRESSOR STATION ENGINEER CHIEF, Deysi Pablo, COMPRESSOR STATION ENGINEER CHIEF, Shelli Menon, COMPRESSOR STATION ENGINEER CHIEF, Tika Hernandez, COMPRESSOR STATION ENGINEER CHIEF, Cathleen Moran, AUTOMOBILE SERVICE STATION MANAGER, Razia Figueroa, DNP, Madalyn Julien, COMPRESSOR STATION ENGINEER CHIEF, Amie Richardson, COMPRESSOR STATION ENGINEER CHIEF, Mary Meléndez, COMPRESSOR STATION ENGINEER CHIEF [facility] IN-PATIENT SERVICE [facility] Progress Note 06/17/2022 3:17 PM Name: Tip Ansari Acct: [id number] Room: [address] [place] [address] Day: 2 Admit Date: 06/15/2022 4:29 PM [...] repeat CT chest 03/05 but went to fci due to a IVDU relapse 05/06/22 Review [...] drug use. Drugs: Cocaine, Opiates , Marijuana ([place]), and Methamphetamines (Crystal Meth). He reports that [...] Value Date/Time PHART 7.380 12/16/2020 09:20 AM EWP0COK 44.5 12/16/2020 09:20 AM PO2ART 94.4 12/16/2020 09:20 AM DEK4BXI 25.7 12/16/2020 09:20 AM NBEA NOT REPORTED 12/16/2020 09:20 AM PBEA 0.3 12/16/2020 09:20 AM [id number] 97.1 12/16/2020 09:20 AM FIO2 28 12/16/2020 [...] emboli Occasional hemoptysis Chills and fever in fci Relapsed drug use SIRS + tachycardia and [...] repeat CT chest 03/05 but went to fci Allergy to PNC as a child, but [...] evidence of infectious seeding. Infection Control Recommendations [place] Precautions Contact Isolation Antimicrobial Stewardship Recommendations Simplification [...] repeat CT chest 03/05 but went to fci due to a IVDU relapse 05/06/22 Called from fci 06/15 for chills headaches getting worse and some LGF - sent to [facility] and seen now in ER - [...] performed by Tip Grewal DPM at [facility] OR FOOT SURGERY Left 01/26/2022 INCISION [...] use: Yes Types: Cocaine, Opiates , Marijuana ([place]), Methamphetamines (Crystal Meth) Comment: last use 05/05 [...] Guerrero MD PGY-3, Department of Internal Medicine [place], [place] Final assessment and plan pending discussion [...] emboli Occasional hemoptysis Chills and fever in fci Relapsed drug use SIRS + tachycardia and clammy New LBP and neck pain Left calcaneal osteoarthritis Recently: Left calcaneal osteomyelitis, septic bursitis left heel w I/D 01/26/22, candidemia albicans 01/21/22 TV endocarditis GIANFRANCO 01/24/22 treated w fluconazole Septic pulm emboli from MRSA septicemia 12/13/21 allergy to vanco w recurrent serotonin syndrome. Was planned for a repeat CT chest 03/05 but went to fci Allergy to PNC as a child, but [...] a site of seeding Infection Control Recommendations [place] Precautions Contact Isolation Antimicrobial Stewardship Recommendations Simplification [...] repeat CT chest 03/05 but went to fci due to a IVDU relapse 05/06/22 Called from fci 06/15 for chills headaches getting worse and some LGF - sent to [facility] and seen now in ER - [...] performed by Tip Grewal DPM at [facility] OR FOOT SURGERY Left 01/26/2022 INCISION [...] use: Yes Types: Cocaine, Opiates , Marijuana ([place]), Methamphetamines ([place]) Comment: last use 05/05 [...] Saenz MD Office: Perfect serve / office [phone] ATTESTATION: I have discussed the case, including [...] Echo Lab documented in this encounter [employer] [facility] [employer] Phone: 05-08-2022 History of Present illness Narrative Patient given discharge instructions and follow up appointments and cam boot instructions. Patient verbalized understanding. Images from the original note were not included. [facility] Office: [phone] Mikie Rodriguez DO, Theo Lerma DO, Stuart [...] Avila MD, Lyle Woods MD, Teresa Quintero, COMPRESSOR STATION ENGINEER CHIEF, Tika Hernandez CNP, Abdirahman Bella, COMPRESSOR STATION ENGINEER CHIEF, Leslie Rao, COMPRESSOR STATION ENGINEER CHIEF, Ro Bernard, COMPRESSOR STATION ENGINEER CHIEF, Carter Charles, COMPRESSOR STATION ENGINEER CHIEF, KO HunterC, Eli Fu, DNP, Keri Walker, COMPRESSOR STATION ENGINEER CHIEF, Sherrie Rea, COMPRESSOR STATION ENGINEER CHIEF, Deysi Pablo, COMPRESSOR STATION ENGINEER CHIEF, Cathleen Moran, AUTOMOBILE SERVICE STATION MANAGER, Razia Figueroa, DNP, Madalyn Julien, COMPRESSOR STATION ENGINEER CHIEF, Shelli Menon, COMPRESSOR STATION ENGINEER CHIEF, Amie Richardson, COMPRESSOR STATION ENGINEER CHIEF IN-PATIENT SERVICE [facility] Progress Note 05/08/2022 10:06 AM Name: Tip Ansari Acct: [id number] Room: [address] [place] [address] Day: 2 Admit Date: 05/06/2022 4:40 AM [...] Chronic hepatitis C without hepatic coma ([facility]), COPD (chronic obstructive pulmonary disease) ([facility]), Depression, and Drug addiction ([facility]). Social History: reports that he has quit smoking. He has never used smokeless tobacco. He reports current drug use. Drugs: Cocaine, Opiates , Marijuana ([place]), and Methamphetamines (Crystal Meth). He reports that [...] Results Component Value Date PHART 7.380 12/16/2020 ACZ1ABX 44.5 12/16/2020 PO2ART 94.4 12/16/2020 DHE8VTF 25.7 12/16/2020 NBEA NOT REPORTED 12/16/2020 PBEA 0.3 12/16/2020 [id number] 97.1 12/16/2020 FIO2 28 12/16/2020 Lab Results [...] IP CONSULT TO PODIATRY INPATIENT CONSULT TO DEHYDROGENATION CONVERTER OPERATOR CHEMICAL DEPENDENCY REFERRAL FOR SOCIAL SERVICE CONSULT Alberto Perez MD 05/08/2022 10:06 AM Images from the original note were not included. [facility] Office: [phone] iMkie Rodriguez DO, Theo Lerma DO, Stuart Natarajan [...] Rea, PABLO, Deysi Pablo, PABLO, Cathleen Moran, AUTOMOBILE SERVICE STATION MANAGER, Razia Figueroa, FÉLIX, Madalyn Julien, PABLO, Shelli Menon CNP, Amie Richardson, PABLO IN-PATIENT SERVICE [facility] Progress Note 05/07/2022 6:09 PM Name: Tip Ansari Acct: [id number] Room: [address] [place] [address] Day: 1 Admit Date: 05/06/2022 4:40 AM PCP: No primary care provider on file. Code Status: Full Code Subjective: C/C: Left ankle pain and swelling Interval History Status: Malaise Withdrawing Nausea Not eating well Sweats Data Base Updates: Gowebkm85kw/dL FDG02sb/dL CREATININE0.62 Low mg/dL Calcium8.9mg/dL Kuccid556rplf/L Potassium4.2 Brief History: As documented in the [...] drug use. Drugs: Cocaine, Opiates , Marijuana ([place]), and Methamphetamines (Crystal Meth). He reports that [...] Results Component Value Date PHART 7.380 12/16/2020 DFB5VBP 44.5 12/16/2020 PO2ART 94.4 12/16/2020 AKJ5EBB 25.7 12/16/2020 NBEA NOT REPORTED 12/16/2020 PBEA 0.3 12/16/2020 P4IOWXBF 97.1 12/16/2020 FIO2 28 12/16/2020 Lab Results [...] suggested DVT prophylaxis Patient to return to fci when stabilized IP CONSULT TO INFECTIOUS DISEASES IP CONSULT TO PODIATRY INPATIENT CONSULT TO DEHYDROGENATION CONVERTER OPERATOR CHEMICAL DEPENDENCY REFERRAL FOR SOCIAL SERVICE CONSULT [...] with Dr Andrea for infection. Please call [phone] for appointment Medical Decision Making/Summary/Discussion:6/27/20 22 Infection Control Recommendations [place] Precautions Contact Isolation MRSA Antimicrobial Stewardship Recommendations [...] the police brought him in to the [facility] ER. At that location the patient complained of redness, swelling and pain of the left ankle. He was transferred to [place] because of concerns with recurrence of one [...] performed by Tip Grewal DPM at [facility] OR FOOT SURGERY Left 01/26/2022 INCISION [...] use: Yes Types: Cocaine, Opiates , Marijuana ([place]), Methamphetamines ([place]) Comment: last use 05/05 [...] Friends and Family: Not on file Attends [employer]: Not on file Active Member of [...] excluded. No soft tissue gas. Medical Decision Wtdftb-Wquvngfv-Agdiz: Medical Decision Making-Other: Note: Labs, medications, radiologic studies were reviewed with personal review of films Large amounts of data were reviewed Discussed with nursing Staff, turnaround planner Infection Control and Prevention measures reviewed [...] is a 42 y.o. male seen at [facility] for left heel pain. Patient is [...] 12:34 PM documented in this encounter [email or web address] Work Phone: 05-07-2022 Hospital Discharge instructions Jason [...] most local grocery stores, pharmacies, and chain [employer]-stores. If you have any questions about your [...] Information Primary Emergency Contact: Vince Ansaria Address: [place] [address] Relation: Parent Secondary Emergency Contact: yari jaida Mobile Relation: Aunt/Uncle Past Surgical History: Past Surgical History: Procedure Laterality Date ABSCESS DRAINAGE Left 2019 arm APPENDECTOMY FINGER SURGERY Right 5 th finger tendon repair FOOT DEBRIDEMENT Left 01/26/2022 INCISION AND DRAINAGE, BONE LEFT CALCANEOUS performed by Tip Grewal DPM at [facility] OR FOOT SURGERY Left 01/26/2022 INCISION AND DRAINAGE, BONE LEFT CALCANEOUS (Left Foot) PICC INSERTION VASCULAR ACCESS TEAM 01/25/2022 TYMPANOSTOMY TUBE PLACEMENT Bilateral Immunization History: There is no immunization history on file for this patient. 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, 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[facility]) M00.061 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 Moderate tricuspid regurgitation I07.1 Hyperkalemia E87.5 Endocarditis I38 Sepsis ([facility]) A41.9 Staphylococcal arthritis of left ankle ([facility]) M00.072 Hyperglycemia R73.9 Sepsis due to Nathaniel species without acute organ dysfunction ([facility]) B37.7, R65.20 Sinus tachycardia R00.0 Septic bursitis of Achilles M71.10 Acute osteomyelitis of left calcaneus ([facility]) M86.172 Opiate withdrawal ([facility]) F11.23 Acute hematogenous osteomyelitis of left ankle ([facility]) M86.072 Cellulitis of left lower extremity L03.116 IV drug abuse ([facility]) F19.10 Tenosynovitis of left ankle M65.9 Achilles [...] MENTAL STATUS:} IV Access: { CARLINE IV ACCESS:233105050} Nursing Mobility/ADLs: Walking {CHP DME ADLs:903785807} Transfer {CHP DME ADLs:583555463} Bathing {CHP DME ADLs:117114844} Dressing {CHP DME ADLs:276121282} Toileting {CHP DME ADLs:848917970} Feeding {CHP DME ADLs:916719827} Fish Culturist {CHP DME ADLs:133381216} Med Delivery { CARLINE MED Delivery:355989698} Wound Care Documentation and Therapy: Wound 01/20/22 Ankle Left;Posterior (Active) Number of days: 107 Incision 01/26/22 Tibial Distal;Left;Posterior (Active) Number of days: 101 Elimination: Continence: Bowel: {YES / NO:} Bladder: {YES / NO:} Urinary Catheter: {Urinary Catheter:030571889} Colostomy/Ileostomy/Ileal Conduit: {YES / NO:} Date of Last BM: Intake/Output Summary (Last 24 hours) at 05/08/2022 1118 Last data filed at 05/08/2022 0730 Gross per 24 hour Intake -- Output 1600 ml Net -1600 ml I/O last 3 completed shifts: In: 1076 [P.O.:620; I.V.:35; IV Piggyback:421] Out: 2400 [Urine:2400] Safety Concerns: { CARLINE Safety Concerns:501187924} Impairments/Disabilities: {[facility] [place]airments/Disabilities:31541760 3} Nutrition Therapy: Current Nutrition Therapy: { CARLINE Diet List:956930873} Routes of Feeding: {CHP DME Other Feedings:562499456} Liquids: {Cinder Man liquid thickness:46616} Daily Fluid Restriction: {CHP DME Yes amt example:973203090} Last Modified Barium Swallow with Video (Video Swallowing Test): {Done Not Done Date:} Treatments at the Time of Hospital Discharge: Respiratory Treatments: Oxygen Therapy: {Therapy; copd oxygen:94034} Ventilator: {[facility] Vent List:371125986} Rehab Therapies: {THERAPEUTIC INTERVENTION:6576219210} Weight Bearing Status/Restrictions: {MH CC Weight Bearin} Other Medical Equipment (for information only, NOT a DME order): {EQUIPMENT:594175355} Other Treatments: Patient's personal belongings (please select all that are sent with patient): {CHP DME Belongings:386146644} RN SIGNATURE: {Esignature:657310826} CASE MANAGEMENT/SOCIAL WORK SECTION Inpatient Status Date: Readmission Risk Assessment Score: Readmission Risk Risk of Unplanned Readmission: 20 Discharging to Facility/ Agency Name: Address: Phone: Fax: Dialysis Facility (if applicable) Name: Address: Dialysis Schedule: Phone: Fax: Anesthesiology Fellow/Kennel Attendant signature: {Esignature:[id number]} PHYSICIAN SECTION Prognosis: {Prognosis:5922659658} Condition at Discharge: { Patient Condition:615901027} Rehab Potential (if transferring to Rehab): {Prognosis:0998939056} Recommended Labs or Other Treatments After Discharge: Partial weightbearing in CAM walker to left leg Physician Certification: I certify the above information and transfer of Tip Ansari is necessary for the continuing treatment of the diagnosis listed and that he requires {Admit to Appropriate Level of Care:12551} for {GREATER/LESS:891346030} 30 days. Update Admission H&P: {CHP DME Changes in HandP:004299281} PHYSICIAN SIGNATURE: {Esignature:391981217} Diane Cordova DPM - 05/08/2022 Partial weight bearing to left foot, Wear cam boot to left foot while out of bed. documented in this encounter [employer] Phone: 01-30-2022 History of Present illness Narrative Pt being discharged home with friend. Pt stated he called his morale officer to inform them of discharge. Discharge instructions reviewed. Meds delivered via meds to bed. All belongings accounted for. All questions answered. Physical Therapy Facility/Department: [facility] CAR 2 Daily Treatment Note NAME: [...] heel/toe raises, and marches. Reps:15 AM-PAC Score AM-[facility] Inpatient Mobility Raw Score : 21 (01/30/221348) -[facility] Inpatient T-Scale Score : 50.25 (01/30/221348) Mobility [...] from the original note were not included. [facility] Office: [phone] Mikie Rodriguez DO, Theo Lerma DO, Stuart [...] Avila MD, Alberto Perez MD, Teresa Quintero, COMPRESSOR STATION ENGINEER CHIEF, Tika Hernandez, COMPRESSOR STATION ENGINEER CHIEF, Mary Meléndez, COMPRESSOR STATION ENGINEER CHIEF, Cathleen Moran, AUTOMOBILE SERVICE STATION MANAGER, Abdirahman Bella, COMPRESSOR STATION ENGINEER CHIEF, Leslie Rao, COMPRESSOR STATION ENGINEER CHIEF, Madalyn Julien, COMPRESSOR STATION ENGINEER CHIEF, Ro Bernard, COMPRESSOR STATION ENGINEER CHIEF, Carter Charles, COMPRESSOR STATION ENGINEER CHIEF, Mckayla Abraham, PA-C, Eli Fu, DNP, Razia Figueroa, DNP, Keri Walker, COMPRESSOR STATION ENGINEER CHIEF, Sherrie Rea, COMPRESSOR STATION ENGINEER CHIEF, Moon Waldrop, COMPRESSOR STATION ENGINEER CHIEF, Ethel Soto, COMPRESSOR STATION ENGINEER CHIEF, Jazzy Javier, COMPRESSOR STATION ENGINEER CHIEF, Shelli Menon, COMPRESSOR STATION ENGINEER CHIEF [facility] IN-PATIENT SERVICE [facility] Progress Note 01/30/2022 1:39 PM Name: Tip Ansari Acct: [id number] Room: IP Day: 10 Admit Date: 01/20/2022 [...] year old gentleman who initially presented to [facility] ED from the local [facility] after he developed acute onset chills and shaking. He noted a wound to his left foot as well. Onset was abrupt, as he felt well earlier in the day. Patient was previously at [facility] in December for MRSA bacteremia with tricuspid [...] vancomycin and patient was [facility] CT imaging in the ER revealed no [...] drug use. Drugs: Cocaine, Opiates , Marijuana ([place]), and Methamphetamines (Crystal Meth). He reports that [...] Results Component Value Date PHART 7.380 12/16/2020 [id number] 44.5 12/16/2020 PO2ART 94.4 12/16/2020 [id number] 25.7 12/16/2020 NBEA NOT REPORTED 12/16/2020 PBEA 0.3 12/16/2020 [id number] 97.1 12/16/2020 FIO2 28 12/16/2020 Lab Results [...] withdrawal (HCC) 01/28/2022 No Heroin abuse ([facility]) 01/23/2022 Yes Hepatitis C virus infection without hepatic coma 01/23/2022 Yes Endocarditis of tricuspid valve 01/23/2022 Yes Moderate tricuspid regurgitation 01/23/2022 Yes Hyperglycemia 01/23/2022 Yes Acute osteomyelitis of left calcaneus (HCC) 01/28/2022 Yes Acute hematogenous osteomyelitis of left ankle ([facility]) 01/29/2022 Yes Plan: 1. Sepsis likely due [...] PM Physician Progress Note PATIENT: TIP ANSARI [facility] #: [id number] : 1980 ADMIT DATE: 01/20/2022 10:23 PM [...] reaction- Tachycardia fever red neck syndrome in [place] Pulmonary septic emboli, MRSA -residual lesions remain [...] red neck syndrome infection with fever in [place] and again here Label allergic to vanco [...] Chart reconsiled for DC Infection Control Recommendations [place] Precautions Contact Isolation Antimicrobial Stewardship Recommendations Simplification of therapy IV to oral conversion Coordination ofOutpatient Care: Estimated Length of IV antimicrobials: Patient will need Midline / picc Catheter Insertion: Patient will need SNF: Patient will need outpatient wound care: History of Present Illness: Initial history: Tip Ansari is a 42 y.o.-year-old male [facility] because of rigors and fever as well as the left foot wound that seems to have started suddenly in [facility] Recently seen 12/[address] [facility] for MRSA bacteremia, right knee septic [...] Acid, Whole Blood3.3 High Sed Rate58 High Nnygbmlpuoepf67.47 High Micro: BC One f two, 01/21 [...] performed by Tip Grewal DPM at [facility] OR FOOT SURGERY Left 01/26/2022 INCISION [...] use: Yes Types: Cocaine, Opiates , Marijuana ([place]), Methamphetamines (Crystal Meth) Comment: quit heroin Nov [...] Friends and Family: Not on file Attends Quaker Services: Not on file Active Member of [...] Andrea MD Office: Perfect serve / office [phone] Images from the original note were not included. Physical Therapy Physical Therapy Cancel Note DATE: 01/29/2022 NAME: Tip Ansari : 1980 Patient not seen this date for Physical Therapy due to: Patient Declined: Stated he is getting around ok today, therapist educated pt on benefit of PT in hospital setting, PT will resume 01/30/22 Images from the original note were not included. [facility] Office: [phone] Mikie Rodriguez DO, Theo Lerma DO, Stuart [...] Hernandez CNP, Mary Meléndez CNP, Cathleen Moran, [facility], Abdirahman Bella, COMPRESSOR STATION ENGINEER CHIEF, Leslie Rao, COMPRESSOR STATION ENGINEER CHIEF, Madalyn Julien, COMPRESSOR STATION ENGINEER CHIEF, Ro Bernard, COMPRESSOR STATION ENGINEER CHIEF, Carter Charles, COMPRESSOR STATION ENGINEER CHIEF, Mckayla Abraham PA-C, Eli Fu DNP, Razia Figueroa, FÉLIX, Keri Walker, COMPRESSOR STATION ENGINEER CHIEF, Sherrie Rea, COMPRESSOR STATION ENGINEER CHIEF, Moon Waldrop, COMPRESSOR STATION ENGINEER CHIEF, Ethel Soto, COMPRESSOR STATION ENGINEER CHIEF, Jazzy Javier, COMPRESSOR STATION ENGINEER CHIEF, Shelli Menon, COMPRESSOR STATION ENGINEER CHIEF [facility] IN-PATIENT SERVICE [facility] Progress Note 01/29/2022 1:33 PM Name: Tip Ansari Acct: [id number] Room: IP Day: 9 Admit Date: 01/20/2022 [...] year old gentleman who initially presented to [facility] ED from the local [facility] after he developed acute onset chills and shaking. He noted a wound to his left foot as well. Onset was abrupt, as he felt well earlier in the day. Patient was previously at [facility] in December for MRSA bacteremia with tricuspid [...] vancomycin and patient was discharged [facility] to [facility] CT imaging in the ER revealed no [...] drug use. Drugs: Cocaine, Opiates , Marijuana ([place]), and Methamphetamines (Crystal Meth). He reports that [...] Results Component Value Date PHART 7.380 12/16/2020 [id number] 44.5 12/16/2020 PO2ART 94.4 12/16/2020 [id number] 25.7 12/16/2020 NBEA NOT REPORTED 12/16/2020 PBEA 0.3 12/16/2020 [id number] 97.1 12/16/2020 FIO2 28 12/16/2020 Lab Results [...] withdrawal (HCC) 01/28/2022 No Heroin abuse ([facility]) 01/23/2022 Yes Moderate tricuspid regurgitation 01/23/2022 Yes [...] loss Fluid Accumulation: 1 - Mild Extremities Food And Drug Inspector Strength: Not Performed Estimated Daily Nutrient Needs: Energy (kcal): 25-28 kcal/kg = 4852-8357 kcals/day; Weight Used for Energy Requirements: [place] Protein (g): 1.2-1.5 gm/kg = 90-110 gm [...] kg) (12/13/21 bed scale per chart review) [place] Body Weight: 178 lbs; % [place] Body Weight 90 % BMI: 21.7 BMI [...] Status,Weight,Skin Discharge Planning: Continue current diet Contact: [phone] [facility] Cardiothoracic Surgery Progress Note 01/29/2022 11:03 AM [...] reaction- Tachycardia fever red neck syndrome in [place] Pulmonary septic emboli, MRSA -residual lesions remain [...] red neck syndrome infection with fever in [place] and again here Label allergic to vanco [...] condition carries increased mortality Infection Control Recommendations [place] Precautions Contact Isolation Antimicrobial Stewardship Recommendations Simplification of therapy IV to oral conversion Coordination ofOutpatient Care: Estimated Length of IV antimicrobials: Patient will need Midline / picc Catheter Insertion: Patient will need SNF: Patient will need outpatient wound care: History of Present Illness: Initial history: Tip Ansari is a 42 y.o.-year-old male [facility] because of rigors and fever as well as the left foot wound that seems to have started suddenly in [facility] Recently seen 12/[address] [facility] for MRSA bacteremia, right knee septic [...] Acid, Whole Blood3.3 High Sed Rate58 High Qgvtgimvzdexo37.47 High Micro: BC One f two, 01/21 [...] use: Yes Types: Cocaine, Opiates , Marijuana ([place]), Methamphetamines ([place]) Comment: quit heroin Nov [...] Friends and Family: Not on file Attends Quaker Services: Not on file Active Member of [...] Andrea MD Office: Perfect serve / office [phone] Images from the original note were not [...] reaction- Tachycardia, fever, red neck syndrome in [place] s/p 2 doses of Vancomycin. Likely serotonin [...] foot I&D on 01/26/22 Infection Control Recommendations [place] Precautions Contact Isolation Antimicrobial Stewardship Recommendations Simplification of therapy IV to oral conversion Coordination ofOutpatient Care: Estimated Length of IV antimicrobials: Patient will need Midline / picc Catheter Insertion: Patient will need SNF: Patient will need outpatient wound care: History of Present Illness: Initial history: Tip Ansari is a 42 y.o.-year-old male [facility] because of rigors and fever as well as a left foot wound that seems to have started suddenly in [facility] Recently seen 12/13/[address] Andrea at [facility] for MRSA septicemia, right knee septic [...] Whole Blood: 3.3 High Sed Rate58 High Kprjwmuybrtho69.47 High Micro: Blood: 12-13-21: MRSA x 2 [...] use: Yes Types: Cocaine, Opiates , Marijuana ([place]), Methamphetamines ([place]) Comment: quit heroin Nov [...] Friends and Family: Not on file Attends Quaker Services: Not on file Active Member of [...] Contains abnormal data Culture, Blood 1 Order: [id number] Status: Final result Visible to patient: No [...] Martinez AT 1440 ON 12/14/2021 Resulting Agency [facility] Susceptibility Methicillin resistant staphylococcus aureus (4) Antibiotic [...] by contextual diversion. Chasity Matos APRN - [facility] Office: Perfect serve / office [phone] Images from the original note were not included. [facility] Office: [phone] Mikie Rodriguez DO, Theo Lerma DO, Stuart [...] Perez MD, Teresa Quintero CNP, Tika Hernandez COMPRESSOR STATION ENGINEER CHIEF, Mary Meléndez, COMPRESSOR STATION ENGINEER CHIEF, Cathleen Moran, AUTOMOBILE SERVICE STATION MANAGER, bAdirahman Bella, COMPRESSOR STATION ENGINEER CHIEF, Leslie Rao, COMPRESSOR STATION ENGINEER CHIEF, Madalyn Julien, COMPRESSOR STATION ENGINEER CHIEF, Ro Bernard, COMPRESSOR STATION ENGINEER CHIEF, Carter Charles COMPRESSOR STATION ENGINEER CHIEF, Mckayla Abraham PA-C, Eli Fu DNP, Razia Figueroa DNP, Keri Walker CNP, Sherrie Rea CNP, Moon Waldrop CNP, Ethel Soto CNP, Jazzy Javier CNP, Shelli Menon CNP [facility] IN-PATIENT SERVICE [facility] Progress Note 01/28/2022 8:29 AM Name: Tip Ansari Acct: [id number] Room: IP Day: 8 Admit Date: 01/20/2022 [...] year old gentleman who initially presented to [facility] ED from the local [facility]ci after he developed acute onset chills and shaking. He noted a wound to his left foot as well. Onset was abrupt, as he felt well earlier in the day. Patient was previously at [facility] in December for MRSA bacteremia with tricuspid [...] vancomycin and patient was [facility] imaging in the ER revealed no [...] drug use. Drugs: Cocaine, Opiates , Marijuana ([place]), and Methamphetamines (Crystal Meth). He reports that [...] Results Component Value Date PHART 7.380 12/16/2020 BVR2CON 44.5 12/16/2020 PO2ART 94.4 12/16/2020 [id number] 25.7 12/16/2020 NBEA NOT REPORTED 12/16/2020 PBEA 0.3 12/16/2020 [id number] 97.1 12/16/2020 FIO2 28 12/16/2020 Lab Results [...] is a 42 y.o. male seen at [facility] for possible septic arthritis of the left [...] not hesitate to contact the podiatry resident environmental consultant with any other questions or concerns. Follow-up with Dr. Grewal within [address] Aissatou White DPM Podiatric Medicine & Surgery 01/27/2022 at 12:05 PM Images from the original note were not included. [facility] Office: [phone] Mikie Rodriguez DO, Theo Lerma DO, Stuart Natarajan DO, Harpal Tran, DO, Prashanth Sadler MD, Deana Raza MD, Florencia Canela MD, Tess Ford MD, Yuliana Saenz MD, Leodan Mak MD, Mraimar Ren MD, Fabricio Syed DO, Kyle Broussard DO, Juan Driver MD, Sophia Agustin DO, Lyle Woods MD, Jodi Bain MD, Palomo Drummond MD, Johann Rodriguez DO, Radha Avila MD, Alberto Perez MD, Teresa Quintero, COMPRESSOR STATION ENGINEER CHIEF, Tika Hernandez, COMPRESSOR STATION ENGINEER CHIEF, Mary Meléndez, COMPRESSOR STATION ENGINEER CHIEF, Cathleen Moran, AUTOMOBILE SERVICE STATION MANAGER, Abdirahman Bella, COMPRESSOR STATION ENGINEER CHIEF, Leslie Rao, COMPRESSOR STATION ENGINEER CHIEF, Madalyn Julien, COMPRESSOR STATION ENGINEER CHIEF, Ro Bernard, COMPRESSOR STATION ENGINEER CHIEF, Carter Charles, COMPRESSOR STATION ENGINEER CHIEF, Mckayla Abraham PA-C, Eli Fu, DNP, Razia Figueroa, DNP, Keri Walker, COMPRESSOR STATION ENGINEER CHIEF, Sherrie Rea, COMPRESSOR STATION ENGINEER CHIEF, Moon Waldrop, COMPRESSOR STATION ENGINEER CHIEF, Ethel Soto, COMPRESSOR STATION ENGINEER CHIEF, Jazzy Javier, COMPRESSOR STATION ENGINEER CHIEF, Shelli Menon, COMPRESSOR STATION ENGINEER CHIEF [facility] IN-PATIENT SERVICE [facility] Progress Note 01/27/2022 11:00 AM Name: Tip Ansari Acct: [id number] Room: IP Day: 7 Admit Date: 01/20/2022 [...] year old gentleman who initially presented to [facility] ED from the local [facility] after he developed acute onset chills and shaking. He noted a wound to his left foot as well. Onset was abrupt, as he felt well earlier in the day. Patient was previously at [facility] in December for MRSA bacteremia with tricuspid [...] vancomycin and patient was discharged [facility] CT imaging in the ER revealed no [...] drug use. Drugs: Cocaine, Opiates , Marijuana ([place]), and Methamphetamines (Crystal Meth). He reports that [...] Results Component Value Date PHART 7.380 12/16/2020 GZL6RBP 44.5 12/16/2020 PO2ART 94.4 12/16/2020 MKN7RKK 25.7 12/16/2020 NBEA NOT REPORTED 12/16/2020 PBEA 0.3 12/16/2020 O2EHBERD 97.1 12/16/2020 FIO2 28 12/16/2020 Lab Results [...] Yes Acute osteomyelitis of left calcaneus ([facility]) 01/26/2022 Yes Plan: 1. Sepsis likely due [...] reaction- Tachycardia, fever, red neck syndrome in [place] s/p 2 doses of Vancomycin. Likely serotonin [...] foot I&D on 01/26/22 Infection Control Recommendations [place] Precautions Contact Isolation Antimicrobial Stewardship Recommendations Simplification of therapy IV to oral conversion Coordination ofOutpatient Care: Estimated Length of IV antimicrobials: Patient will need Midline / picc Catheter Insertion: Patient will need SNF: Patient will need outpatient wound care: History of Present Illness: Initial history: Tip Ansari is a 42 y.o.-year-old male [facility] because of rigors and fever as well as a left foot wound that seems to have started suddenly in [facility] Recently seen 12/13/[address] Andrea at [facility] for MRSA septicemia, right knee septic [...] Whole Blood: 3.3 High Sed Rate58 High Snslgxsgybltj48.47 High Micro: Blood: 12-13-21: MRSA x 2 [...] use: Yes Types: Cocaine, Opiates , Marijuana ([place]), Methamphetamines ([place]) Comment: quit heroin Nov [...] Friends and Family: Not on file Attends Quaker Services: Not on file Active Member of [...] Contains abnormal data Culture, Blood 1 Order: [id number] Status: Final result Visible to patient: No [...] Martinez AT 1440 ON 12/14/2021 Resulting Agency [facility] Susceptibility Methicillin resistant staphylococcus aureus (4) Antibiotic [...] be extrapolated by contextual diversion. Chasity Matos, LAYER OUT PLATE GLASS - COMPRESSOR STATION ENGINEER CHIEF ATTESTATION: I have discussed the case, including pertinent history and exam findings with the LAYER OUT PLATE GLASS. I have evaluated the History, physical findings and pictures of the patient and the hall elements of the encounter have been performed by me. I have reviewed the laboratory data, other diagnostic studies and discussed them with the LAYER OUT PLATE GLASS. I have updated the medical record where necessary. I agree with the assessment, plan and orders as documented by the LAYER OUT PLATE GLASS. Tariq Dumont MD. Office: Perfect serve / office [phone] Images from the original note were not included. [facility] - Infectious diseases evaluation admission date 01/20/2022 reason for consultation: Sepsis Vanco allergy Impression : Current: Vancomycin reaction- Tachycardia fever red neck syndrome in [place] Pulmonary septic emboli, MRSA -residual lesions remain [...] red neck syndrome infection with fever in [place] and again here Label allergic to vanco [...] condition carries increased mortality Infection Control Recommendations [place] Precautions Contact Isolation Antimicrobial Stewardship Recommendations Simplification of therapy IV to oral conversion Coordination ofOutpatient Care: Estimated Length of IV antimicrobials: Patient will need Midline / picc Catheter Insertion: Patient will need SNF: Patient will need outpatient wound care: History of Present Illness: Initial history: Tip Ansari is a 42 y.o.-year-old male [facility] because of rigors and fever as well as the left foot wound that seems to have started suddenly in [facility] Recently seen 12/[address] [facility] for MRSA bacteremia, right knee septic [...] Acid, Whole Blood3.3 High Sed Rate58 High Npqgfqjbvaydq77.47 High Micro: BC One f two, 01/21 [...] use: Yes Types: Cocaine, Opiates , Marijuana ([place]), Methamphetamines (C[place]) Comment: quit heroin Nov [...] Friends and Family: Not on file Attends Quaker Services: Not on file Active Member of [...] Andrea MD Office: Perfect serve / office [phone] Images from the original note were not included. [facility] Office: [phone] Mikie Rodriguez DO, Theo Lerma DO, Stuart [...] Quintero CNP, Tika Hernandez CNP, Mary Meléndez, COMPRESSOR STATION ENGINEER CHIEF, Cathleen Moran, AUTOMOBILE SERVICE STATION MANAGER, Abdirahman Bella, PABLO, Leslie Rao CNP, Madalyn Julien, PABLO, Ro Bernard, PABLO, Carter Charles CNP, Mckayla Abraham PA-C, Eli Fu DNP, Razia Figueroa DNP, Keri Walker, PABLO, Sherrie Rea, PABLO, Moon Waldrop CNP, Ethel Soto COMPRESSOR STATION ENGINEER CHIEF, Jazzy Javier CNP, Shelli Menon CNP [facility] IN-PATIENT SERVICE [facility] Progress Note 01/26/2022 2:36 PM Name: Tip Ansari Acct: [id number] Room: [facility] IP Day: 6 Admit Date: 01/20/2022 10:23 [...] year old gentleman who initially presented to [facility] ED from the local [facility] after he developed acute onset chills and shaking. He noted a wound to his left foot as well. Onset was abrupt, as he felt well earlier in the day. Patient was previously at [facility] in December for MRSA bacteremia with tricuspid [...] vancomycin and patient was [facility] imaging in the ER revealed no [...] drug use. Drugs: Cocaine, Opiates , Marijuana ([place]), and Methamphetamines (C[place]). He reports that [...] Results Component Value Date PHART 7.380 12/16/2020 CRX2POK 44.5 12/16/2020 PO2ART 94.4 12/16/2020 TGW9AXZ 25.7 12/16/2020 NBEA NOT REPORTED 12/16/2020 PBEA 0.3 12/16/2020 [id number] 97.1 12/16/2020 FIO2 28 12/16/2020 Lab Results [...] is a 42 y.o. male seen at [facility] for possible septic arthritis of the left [...] IV. Nurse stopped iv 21:58 Nurse notified environmental consultant 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 Yoly Quintero. Ordered benadryl and morphine. Notified [...] reaction- Tachycardia fever red neck syndrome in [place] Pulmonary septic emboli, MRSA -cavitations improved, nodules [...] red neck syndrome infection with fever in [place] and again here Label allergic to vanco [...] condition carries increased mortality Infection Control Recommendations [place] Precautions Contact Isolation Antimicrobial Stewardship Recommendations Simplification of therapy IV to oral conversion Coordination ofOutpatient Care: Estimated Length of IV antimicrobials: Patient will need Midline / picc Catheter Insertion: Patient will need SNF: Patient will need outpatient wound care: History of Present Illness: Initial history: Tip Ansari is a 42 y.o.-year-old male [facility] because of rigors and fever as well as the left foot wound that seems to have started suddenly in [facility] Recently seen 12/2021 by me [facility] for [...] Acid, Whole Blood3.3 High Sed Rate58 High Anvmmnqdniygo55.47 High Micro: BC One f two, 01/21 [...] use: Yes Types: Cocaine, Opiates , Marijuana ([place]), Methamphetamines (C[place]) Comment: quit heroin Nov [...] Friends and Family: Not on file Attends Quaker Services: Not on file Active Member of [...] Andrea MD Office: Perfect serve / office [phone] Comprehensive Nutrition Assessment Type and Reason for [...] muscle mass loss Fluid Accumulation: (Moderate) Extremities Food And Drug Inspector Strength: Not Performed Estimated Daily Nutrient Needs: [...] kg) (12/13/21 bed scale per chart review) [place] Body Weight: 178 lbs; % [place] Body Weight 90 % BMI: 21.7 BMI [...] Discharge Planning: Too soon to determine Contact: [phone] Images from the original note were not included. [facility] Office: [phone] Mikie Rodriguez DO, Theo Lerma DO, Stuart [...] Avila MD, Alberto Perez MD, Teresa Quintero, COMPRESSOR STATION ENGINEER CHIEF, Tika Hernandez COMPRESSOR STATION ENGINEER CHIEF, Mary Meléndez, COMPRESSOR STATION ENGINEER CHIEF, Cathleen Moran, [place], Abdirahman Bella, COMPRESSOR STATION ENGINEER CHIEF, Leslie Rao COMPRESSOR STATION ENGINEER CHIEF, Madalyn Julien, COMPRESSOR STATION ENGINEER CHIEF, Ro Bernard, COMPRESSOR STATION ENGINEER CHIEF, Carter Charles, COMPRESSOR STATION ENGINEER CHIEF, KO HunterC, Eli Fu DNP, Razia Figueroa DNP, Keri Walker CNP, Sherrie Rea COMPRESSOR STATION ENGINEER CHIEF, Moon Waldrop, COMPRESSOR STATION ENGINEER CHIEF, Ethel Soto COMPRESSOR STATION ENGINEER CHIEF, Jazzy Javier COMPRESSOR STATION ENGINEER CHIEF, Shelli Menon, COMPRESSOR STATION ENGINEER CHIEF [facility] IN-PATIENT SERVICE [facility] Progress Note 01/25/2022 12:15 PM Name: Tip Ansari Acct: [id number] Room: IP Day: 5 Admit Date: 01/20/2022 [...] year old gentleman who initially presented to [facility] ED from the local [facility] after he developed acute onset chills and shaking. He noted a wound to his left foot as well. Onset was abrupt, as he felt well earlier in the day. Patient was previously at [facility] in December for MRSA bacteremia with tricuspid [...] vancomycin and [facility] imaging in the ER revealed no [...] drug use. Drugs: Cocaine, Opiates , Marijuana ([place]), and Methamphetamines (Crystal Meth). He reports that [...] Results Component Value Date PHART 7.380 12/16/2020 [id number] 44.5 12/16/2020 PO2ART 94.4 12/16/2020 [id number] 25.7 12/16/2020 NBEA NOT REPORTED 12/16/2020 PBEA 0.3 12/16/2020 [id number] 97.1 12/16/2020 FIO2 28 12/16/2020 Lab Results [...] to vancomycin - red man syndrome in [place] ED Left ankle soft tissue infection - [...] the original note were not included. [employer] Application Support Technician Progress Note Date: 01/25/2022 Patient name: Tip [...] Infusions: dextrose sodium chloride 25 mL (01/24/22 2205) CBC: Recent Labs 01/23/22 0911 01/25/22 0546 [...] eccentric regurgitation is identified. Cardiovascular Diseases Fellow [facility] Objective: Vitals: BP 115/81 Pulse [...] course per ID 3. Keep k>4, Mg>2 [place] Application Support Technician [facility]. [phone] Images from the original note were not included. Progress Note Podiatric Medicine and Surgery Subjective CC: Ankle pain, left Patient seen and examined at bedside. OR for I&D in the PM Patient is NPO HPI : Tip Ansari is a 42 y.o. male seen at [facility] for possible septic arthritis of the left [...] Intermed messaged regarding IV situation. Darnell Hernandez 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 placed order for PICC Line. Jacob JuanCapacity Planning Engineer notified and stated he will notify PICC [...] to start new IV at bedside. perfectserved [facility] primary team regarding multiple attempts tried to obtain IV access along with using ultrasound for IV...unsuccessful. Asked if we could try the house doctor environmental consultant to place a line. Wilma Quintero, LUCIANO with [facility] said that was ok to do. 2229-perfectserved jacob maciel for [facility] perfecto, Dr. Main Huitron. Came to the floor and spoke to pt. Regarding place a line or trying another peripheral IV with the ultrasound machine again but pt. Refused at this time. Dr. Huitron explained to commercial real estate underwriter and pt. If he changes his mind to let him know and he will come back again this evening to try. Pt. Agreeable. Pt. Has a #20 Left AC, dressing has been changed. Will continue to use the one line available to instill his 3 separate antibiotics this evening. Capacity Planning Engineer, Drake stated he will try and contact the PICC team in the morning to get pt. Added to list for possible midline or PICC line. Images from the original note were not included. [facility] - Infectious diseases evaluation admission date 01/20/2022 reason for consultation: Sepsis Vanco allergy Impression : Current: Vancomycin reaction- Tachycardia fever red neck syndrome in [place] Pulmonary septic emboli, MRSA -cavitations improved, nodules [...] red neck syndrome infection with fever in [place] and again here Label allergic to vanco [...] eval for TV replacement Infection Control Recommendations [place] Precautions Contact Isolation Antimicrobial Stewardship Recommendations Simplification of therapy IV to oral conversion Coordination ofOutpatient Care: Estimated Length of IV antimicrobials: Patient will need Midline / picc Catheter Insertion: Patient will need SNF: Patient will need outpatient wound care: History of Present Illness: Initial history: Tip Ansari is a 42 y.o.-year-old male [facility] because of rigors and fever as well as the left foot wound that seems to have started suddenly in [facility] Recently seen 12/[address] [facility] for MRSA bacteremia, right knee septic [...] Acid, Whole Blood3.3 High Sed Rate58 High Hhmqrodjqdcnw49.47 High Micro: BC One f two, 01/21 [...] use: Yes Types: Cocaine, Opiates , Marijuana ([place]), Methamphetamines (Crystal Meth) Comment: quit heroin Nov [...] Friends and Family: Not on file Attends Quaker Services: Not on file Active Member of [...] Andrea MD Office: Perfect serve / office [phone] Images from the original note were not included. [facility] Office: [phone] Mikie Rodriguez DO, Theo Lerma DO, Stuart [...] Avila MD, Alberto Perez MD, Teresa Quintero, COMPRESSOR STATION ENGINEER CHIEF, Tika Hernandez, COMPRESSOR STATION ENGINEER CHIEF, Mary Meléndez, COMPRESSOR STATION ENGINEER CHIEF, Cathleen Moran, AUTOMOBILE SERVICE STATION MANAGER, Abdirahman Bella, COMPRESSOR STATION ENGINEER CHIEF, Leslie Rao, COMPRESSOR STATION ENGINEER CHIEF, Madalyn Julien, COMPRESSOR STATION ENGINEER CHIEF, Ro Bernard, COMPRESSOR STATION ENGINEER CHIEF, Carter Charles, COMPRESSOR STATION ENGINEER CHIEF, Mckayla Abraham, PA-C, Eli Fu, DNP, Razia Figueroa, DNP, Keri Walker, COMPRESSOR STATION ENGINEER CHIEF, Sherrie Rea, COMPRESSOR STATION ENGINEER CHIEF, Moon Waldrop, COMPRESSOR STATION ENGINEER CHIEF, Ethel Soto, COMPRESSOR STATION ENGINEER CHIEF, Jazzy Javier, COMPRESSOR STATION ENGINEER CHIEF, Shelli Menon, COMPRESSOR STATION ENGINEER CHIEF [facility] IN-PATIENT SERVICE [facility] Progress Note 01/24/2022 2:24 PM Name: Tip Ansari Acct: [id number] Room: Day: 4 Admit Date: 01/20/2022 10:23 [...] year old gentleman who initially presented to [facility] ED from the local [facility] after he developed acute onset chills and shaking. He noted a wound to his left foot as well. Onset was abrupt, as he felt well earlier in the day. Patient was previously at [facility] in December for MRSA bacteremia with tricuspid [...] vancomycin and patient was [facility] imaging in the ER revealed no [...] drug use. Drugs: Cocaine, Opiates , Marijuana ([place]), and Methamphetamines (Crystal Meth). He reports that [...] Results Component Value Date PHART 7.380 12/16/2020 [id number] 44.5 12/16/2020 PO2ART 94.4 12/16/2020 YFD4OVE 25.7 12/16/2020 NBEA NOT REPORTED 12/16/2020 PBEA 0.3 12/16/2020 [id number] 97.1 12/16/2020 FIO2 28 12/16/2020 Lab Results [...] to vancomycin - red man syndrome in [place] ED 5. Left ankle soft tissue infection [...] ordered, consent obtained this patient was in Frame Aligner: Consent consists of incision and drainage with debridement of all nonviable soft tissue and bone, bone culture, soft tissue culture, possible wound VAC HPI : Tip Ansari is a 42 y.o. male seen at [facility] for possible septic arthritis of the left [...] reaction- Tachycardia fever red neck syndrome in [place] Pulmonary septic emboli, MRSA -cavitations improved, nodules [...] red neck syndrome infection with fever in [place] and again here Label allergic to vanco [...] MRSA septic pulm emboli Infection Control Recommendations [place] Precautions Contact Isolation Antimicrobial Stewardship Recommendations Simplification of therapy IV to oral conversion Coordination ofOutpatient Care: Estimated Length of IV antimicrobials: Patient will need Midline / picc Catheter Insertion: Patient will need SNF: Patient will need outpatient wound care: History of Present Illness: Initial history: Tip Ansari is a 42 y.o.-year-old male [facility] because of rigors and fever as well as the left foot wound that seems to have started suddenly in [facility] Recently seen 12/[address] [facility] for MRSA bacteremia, right knee septic [...] Acid, Whole Blood3.3 High Sed Rate58 High Rtpgalrpzozzc03.47 High Micro: BC One f two, 01/21 [...] use: Yes Types: Cocaine, Opiates , Marijuana ([place]), Methamphetamines (Crystal Meth) Comment: quit heroin Nov [...] Friends and Family: Not on file Attends Quaker Services: Not on file Active Member of [...] Andrea MD Office: Perfect serve / office [phone] Images from the original note were not [...] is a 42 y.o. male seen at [facility] for possible septic arthritis of the left [...] from the original note were not included. [facility] Office: [phone] Mikie Rodriguez DO, Theo Lerma DO, Stuart [...] Perez MD, Teresa Quintero CNP, Tika Hernandez COMPRESSOR STATION ENGINEER CHIEF, Mary Meléndez, COMPRESSOR STATION ENGINEER CHIEF, Cathleen Moran, AUTOMOBILE SERVICE STATION MANAGER, Abdirahman Bella, COMPRESSOR STATION ENGINEER CHIEF, Leslie Rao, COMPRESSOR STATION ENGINEER CHIEF, Madalyn Julien, COMPRESSOR STATION ENGINEER CHIEF, Ro Bernard, COMPRESSOR STATION ENGINEER CHIEF, Carter Charles, PABLO, Mckayla Abraham PA-C, Eli Fu, DNP, Razia Figueroa, FÉLIX, Keri Walker, COMPRESSOR STATION ENGINEER CHIEF, Sherrie Rea, COMPRESSOR STATION ENGINEER CHIEF, Moon Waldrop, COMPRESSOR STATION ENGINEER CHIEF, Ethel Soto, COMPRESSOR STATION ENGINEER CHIEF, Jazzy Javier, COMPRESSOR STATION ENGINEER CHIEF, Shelli Menon, COMPRESSOR STATION ENGINEER CHIEF [facility] IN-PATIENT SERVICE [facility] Progress Note 01/23/2022 8:25 AM Name: Tip Ansari Acct: [id number] Room: Day: 3 Admit Date: 01/20/2022 10:23 [...] year old gentleman who initially presented to [facility] ED from the local [facility] after he developed acute onset chills and shaking. He noted a wound to his left foot as well. Onset was abrupt, as he felt well earlier in the day. Patient was previously at [facility] in December for MRSA bacteremia with tricuspid [...] vancomycin and patient was [facility] imaging in the ER revealed no [...] drug use. Drugs: Cocaine, Opiates , Marijuana ([place]), and Methamphetamines (Crystal Meth). He reports that [...] Results Component Value Date PHART 7.380 12/16/2020 ICT7EHP 44.5 12/16/2020 PO2ART 94.4 12/16/2020 [id number] 25.7 12/16/2020 NBEA NOT REPORTED 12/16/2020 PBEA 0.3 12/16/2020 [id number] 97.1 12/16/2020 FIO2 28 12/16/2020 Lab Results [...] to vancomycin - red man syndrome in [place] ED 4. Left ankle soft tissue infection - r/o osteomyelitis. MRI pending. Podiatry following. 5. Heroin abuse - SW to assist. Patient will return to [facility] at d/c if able. 6. History of Hepatitis C 7. Essential hypertension - continue Maxide 8. Labs today 9. PICC vs midline at ID's discretion FABRICIO SYED DO 01/23/2022 8:25 AM Images from the original note were not included. [facility] Office: [phone] Mikie Rodriguez DO, Theo Lerma DO, Stuart [...] Avila MD, Alberto Perez MD, Teresa Quintero COMPRESSOR STATION ENGINEER CHIEF, Tika Hernandez COMPRESSOR STATION ENGINEER CHIEF, Mary Meléndez, COMPRESSOR STATION ENGINEER CHIEF, Cathleen Moran, AUTOMOBILE SERVICE STATION MANAGER, Abdirahman Bella, COMPRESSOR STATION ENGINEER CHIEF, Leslie Rao COMPRESSOR STATION ENGINEER CHIEF, Madalyn Julien, COMPRESSOR STATION ENGINEER CHIEF, Ro Bernard, COMPRESSOR STATION ENGINEER CHIEF, Carter Charles CNP, DONOVAN Hunter-Junior, Eli Fu, FÉLIX, Razia Figueroa DNP, Keri Walker, COMPRESSOR STATION ENGINEER CHIEF, Sherrie Rea, COMPRESSOR STATION ENGINEER CHIEF, Moon Waldrop COMPRESSOR STATION ENGINEER CHIEF, Ethel Soto COMPRESSOR STATION ENGINEER CHIEF, Jazzy Javier CNP, Shelli Menon COMPRESSOR STATION ENGINEER CHIEF IN-PATIENT SERVICE [facility] Progress Note 01/22/2022 6:57 PM Name: Tip Ansari Acct: [id number] Room: IP Day: 2 Admit Date: 01/20/2022 10:23 PM PCP: No primary care provider on file. Code Status: Full Code Subjective: C/C: Sepsis Interval History Status: Ankle pain better controlled No further drainage from wound Patient still feels somewhat anxious Reporting diaphoresis at night Data Base Updates: Afebrile Yxldlgn244 High Hemoglobin A1C5.6 Blood cultures remain negative Brief History: As documented in the medical record: Tip Ansari is a 42 y.o. Non- / non male who presents with No chief complaint on file and is admitted to the hospital for the management of Sepsis (HCC). Patient presents to [place] emergency room [facility] local [facility] after he developed abrupt onset of chills and shaking and noting a wound to his left foot. Patient states that he woke up today feeling normal and as he was watching TV he had a sudden onset of feeling cold which then extended into course shaking and shivering despite covering up with a blanket and drinking warm fluids. Patient was a previous hospital [facility] from [facility] and was treated for MRSA bacteremia with [...] been using heroin [facility] and [facility] violations Past Medical History: has a past medical history of Abscess, Chronic hepatitis C without hepatic coma (HCC), COPD (chronic obstructive pulmonary disease) (HCC), Depression, and Drug addiction (HCC). Social History: reports that he has quit smoking. He has never used smokeless tobacco. He reports current drug use. Drugs: Cocaine, Opiates , Marijuana ([place]), and Methamphetamines (Crystal Meth). He reports that [...] Results Component Value Date PHART 7.380 12/16/2020 [id number] 44.5 12/16/2020 PO2ART 94.4 12/16/2020 JWW8LOI 25.7 12/16/2020 NBEA NOT REPORTED 12/16/2020 PBEA 0.3 12/16/2020 [id number] 97.1 12/16/2020 FIO2 28 12/16/2020 Lab Results [...] reaction- Tachycardia fever red neck syndrome in [place] Pulmonary septic emboli, MRSA -cavitations improved, nodules [...] red neck syndrome infection with fever in [place] and again here Label allergic to vanco Left ankle MRI looking for a septic joint or tendinitis BC nathaniel albicans x 1, explains elevated procal despite stable appearance Asking for GIANFRANCO Start fluconazole 01/22 Keep doxy for pulm nodules - to help resolve past MRSA septic pulm emboli Infection Control Recommendations [place] Precautions Contact Isolation Antimicrobial Stewardship Recommendations Simplification of therapy IV to oral conversion Coordination ofOutpatient Care: Estimated Length of IV antimicrobials: Patient will need Midline / picc Catheter Insertion: Patient will need SNF: Patient will need outpatient wound care: History of Present Illness: Initial history: Tip Ansari is a 42 y.o.-year-old male [facility] because of rigors and fever as well as the left foot wound that seems to have started suddenly in [facility] Recently seen 12/[address] [facility] for MRSA bacteremia, right knee septic [...] Acid, Whole Blood3.3 High Sed Rate58 High Asmzjoboxxmje32.47 High Micro: BC One f two, 01/21 [...] use: Yes Types: Cocaine, Opiates , Marijuana ([place]), Methamphetamines (C[place] Meth) Comment: quit heroin Nov [...] Friends and Family: Not on file Attends Quaker Services: Not on file Active Member of [...] Andrea MD Office: Perfect serve / office [phone] Physical Therapy Facility/Department: [facility] CAR 2 Daily Treatment Note NAME: [...] original note were not included. Occupational Therapy [facility] Occupational Therapy Not Seen Note DATE: 01/22/2022 [...] loss Fluid Accumulation: No significant fluid accumulation Food And Drug Inspector Strength: Not Performed Estimated Daily Nutrient Needs: [...] kg) (12/13/21 bed scale per chart review) [place] Body Weight: 178 lbs; % [place] Body Weight 90.4 % BMI: 21.8 BMI [...] Discharge Planning: Too soon to determine Contact: [phone] Physical Therapy Facility/Department: [facility] 2 Initial Assessment NAME: Tip Ansari : [...] Ambulation Assistance: Independent Transfer Assistance: Independent Active Physician'S Assistant: No Cognition Cognition Overall Cognitive Status: WNL [...] Treatment Minutes: 13 Minutes Liz Rose PT [facility] Pharmacokinetic Monitoring Service - Vancomycin [...] from the original note were not included. [facility] Office: [phone] Mikie Rodriguez DO, Theo Lerma DO, Stuart [...] Mckayla Abraham PA-C, Eli Fu, FÉLIX, Razia Figueora, FÉLIX, Keri Walker, PABLO, Sherrie Rea, PABLO, Moon Waldrop, PABLO, Ethel Soto, PABLO, Jazzy Javire CNP, Shelli Menon CNP IN-PATIENT SERVICE [facility] Progress Note 01/21/2022 1:33 PM Name: Tip Ansari Acct: [id number] Room: IP Day: 1 Admit Date: 01/20/2022 10:23 PM PCP: No primary care provider on file. Code Status: Full Code Subjective: C/C: Sepsis Interval History Status: Not much change Still reporting ankle pain Not sleeping Feels anxious Data Base Updates: Patient has been afebrile Vsuyare155 High mg/dL XTC26uk/dL CREATININE0.73mg/dL Calcium8.6mg/dL Yjakfc698azhv/L Potassium3.9 Lactic Acid, Whole Blood3.3 High Sed Rate58 High Ankle x-ray: Impression: 1. Soft tissue swelling along the heel of the left foot. No evidence of osteomyelitis. Blood cultures negative Specimen Source: Blood Specimen Description.BLOOD Special Tolhwaib7NZ R WRIST CultureNO GROWTH 12 HOURS Brief History: As documented in the medical record: Tip Ansari is a 42 y.o. Non- / non male who presents with No chief complaint on file and is admitted to the hospital for the management of Sepsis (HCC). Patient presents to [place] emergency room [facility] local [facility] after he developed abrupt onset of chills and shaking and noting a wound to his left foot. Patient states that he woke up today feeling normal and as he was watching TV he had a sudden onset of feeling cold which then extended into course shaking and shivering despite covering up with a blanket and drinking warm fluids. Patient was a previous hospital [facility] from [facility] and was treated for MRSA bacteremia with [...] been using heroin [facility] and [facility] violations Past Medical History: has a past medical history of Abscess, Chronic hepatitis C without hepatic coma (HCC), COPD (chronic obstructive pulmonary disease) (HCC), Depression, and Drug addiction (HCC). Social History: reports that he has quit smoking. He has never used smokeless tobacco. He reports current drug use. Drugs: Cocaine, Opiates , Marijuana ([place]), and Methamphetamines (Crystal Meth). He reports that [...] Results Component Value Date PHART 7.380 12/16/2020 ZGF4ITG 44.5 12/16/2020 PO2ART 94.4 12/16/2020 NXB4OZZ 25.7 12/16/2020 NBEA NOT REPORTED 12/16/2020 PBEA 0.3 12/16/2020 [id number] 97.1 12/16/2020 FIO2 28 12/16/2020 Lab Results [...] 01/21/2022 1:33 PM documented in this encounter [employer] Phone: 01-30-2022 Hospital Discharge instructions Kyle Broussard [...] Information Primary Emergency Contact: Alisa Ansari Address: [place] [id number] Relation: Parent Secondary Emergency Contact: jaida greenberg Mobile Relation: Aunt/Uncle Past Surgical History: Past Surgical History: Procedure Laterality Date ABSCESS DRAINAGE Left 2019 arm APPENDECTOMY FINGER SURGERY Right 5 th finger tendon repair FOOT DEBRIDEMENT Left 01/26/2022 INCISION AND DRAINAGE, BONE LEFT CALCANEOUS performed by Tip Grewal DPM at [facility] OR FOOT SURGERY Left 01/26/2022 INCISION AND DRAINAGE, BONE LEFT CALCANEOUS (Left Foot) PICC INSERTION VASCULAR ACCESS TEAM 01/25/2022 TYMPANOSTOMY TUBE PLACEMENT Bilateral Immunization History: There is no immunization history on file for this patient. 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[facility]) M00.061 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 Moderate tricuspid regurgitation I07.1 Hyperkalemia E87.5 Endocarditis I38 Sepsis ([facility]) A41.9 Staphylococcal arthritis of left ankle ([facility]) M00.072 Hyperglycemia R73.9 Sepsis due to Nathaniel species without acute organ dysfunction ([facility]) B37.7, R65.20 Sinus tachycardia R00.0 Septic bursitis of Achilles M71.10 Acute osteomyelitis of left calcaneus ([facility]) M86.172 Opiate withdrawal ([facility]) F11.23 Acute hematogenous osteomyelitis of left ankle ([facility]) M86.072 Isolation/Infection: Isolation Contact Patient Infection Status [...] (79.2 kg) Mental Status: {IP PT MENTAL STATUS:92747} IV Access: { CARLINE IV ACCESS:272504685} Nursing Mobility/ADLs: Walking {CHP DME ADLs:795648310} Transfer {CHP DME ADLs:915409868} Bathing {CHP DME ADLs:544820569} Dressing {CHP DME ADLs:683749382} Toileting {CHP DME ADLs:188761002} Feeding {CHP DME ADLs:232559730} Fish Culturist {CHP DME ADLs:426602381} Med Delivery { CARLINE MED Delivery:083777758} Wound Care Documentation and Therapy: Wound 01/20/22 [...] Bladder: {YES / NO:} Urinary Catheter: {Urinary Catheter:422322731} Colostomy/Ileostomy/Ileal Conduit: {YES / NO:} Date of Last BM: Intake/Output Summary (Last 24 hours) at 01/30/2022 1344 Last data filed at 01/30/2022 1020 Gross per 24 hour Intake 540 ml Output 3480 ml Net -2940 ml I/O last 3 completed shifts: In: 2897 [P.O.:1620; I.V.:927; IV Piggyback:350] Out: 4475 [Urine:4475] Safety Concerns: { CARLINE Safety Concerns:342377067} Impairments/Disabilities: { CARLINE Impairments/Disabilities:64832755 3} Nutrition Therapy: Current Nutrition Therapy: { CARLINE Diet List:864966068} Routes of Feeding: {CHP DME Other Feedings:682139902} Liquids: {Cinder Man liquid thickness:84523} Daily Fluid Restriction: {CHP DME Yes amt example:668077875} Last Modified Barium Swallow with Video (Video Swallowing Test): {Done Not Done Date:} Treatments at the Time of Hospital Discharge: Respiratory Treatments: Oxygen Therapy: {Therapy; copd oxygen:22235} Ventilator: { CC Vent List:532089095} Rehab Therapies: {THERAPEUTIC INTERVENTION:9463413901} Weight Bearing Status/Restrictions: {[facility] Weight Bearin} Other Medical Equipment (for information only, NOT a DME order): {EQUIPMENT:706809364} Other Treatments: Patient's personal belongings (please select all that are sent with patient): {CHP DME Belongings:846176344} RN SIGNATURE: {Esignature:960759021} CASE MANAGEMENT/SOCIAL WORK SECTION Inpatient Status Date: Readmission Risk Assessment Score: Readmission Risk Risk of Unplanned Readmission: 22 Discharging to Facility/ Agency Name: Address: Phone: Fax: Dialysis Facility (if applicable) Name: Address: Dialysis Schedule: Phone: Fax: Anesthesiology Fellow/Kennel Attendant signature: {Esignature:775298677} PHYSICIAN SECTION Prognosis: Good Condition at Discharge: [...] schedule or confirm your appointment. Call your [facility] office if you have any questions or concerns. documented in this encounter [employer] Phone: 01-10-2022 Hospital Discharge instructions Jessica Barrow MD - 01/10/2022 Discussed results with patient. He has no intention of hurting self. We discussed patient going to drug rehab. Patient has no primary care thus was referred to Dr. More. Patient is also continue going to [facility] for his vancomycin injection weekly. documented in this encounter [employer] Phone: 12-20-2021 History of Present illness Narrative Patient to IR for right shoulder aspirate. JR DONOVAN and LYLY/HANH RTs at bedside. Site prepped and draped, area numbed with lidocaine. Access obtained and scant amount red fluid obtained by lavage. Specimen to be sent to lab by commercial real estate underwriter. Access removed and band aid placed to [...] 45.9 anticipate 6 weeks iv Ab at [place] Due to ongoing drug use, dalbavancin weekly x 2, then will need to repeat, vs FU w po doxy FU outpt Need 2 BC in [address] chest in a month Infection Control Recommendations [place] Precautions Contact Isolation Antimicrobial Stewardship Recommendations Simplification [...] he is a heroin user Went to [place] with shortness of breath and fever, hypoxic [...] with right-sided PICC line. C T scan [facility] 12/11 suggestive of multifocal septic emboli with [...] use: Yes Types: Cocaine, Opiates , Marijuana ([place]), Methamphetamines (Crystal Meth) Comment: quit heroin Nov [...] Friends and Family: Not on file Attends Quaker Services: Not on file Active Member of [...] from the original note were not included. [place] Application Support Technician Progress Note Date: 12/20/2021 Patient name: Tip [...] while caught snoring drugs in room per portfolio architect of Systems Medications: Scheduled Meds: [START ON [...] please call back with any concerns [place] Application Support Technician [facility]. [phone] [facility] Pharmacokinetic Monitoring Service - Vancomycin [...] loss Fluid Accumulation: No significant fluid accumulation Food And Drug Inspector Strength: Not Performed Estimated Daily Nutrient Needs: Energy (kcal): 25-28 kcal/kg = 5557-8716 kcals/day; Weight Used for Energy Requirements: Current [...] lb (85.7 kg) (05/2021 per chart review) [place] Body Weight: 184 lbs; % [place] Body Weight 93.6 % BMI: 22.7 BMI [...] Discharge Planning: Too soon to determine Contact: [phone] Physical Therapy Facility/Department: [facility] RENAL//MED SURG Daily Treatment Note NAME: [...] the original note were not included. [place] Application Support Technician Progress Note Date: 12/19/2021 Patient name: Tip [...] active Extremities: no edema Neurologic: not done GIANRFANCO 12/15/21 GIANFRANCO findings: LA: Normal NURIA: No [...] on echo after ATB course as OP [place] Application Support Technician [facility]. [phone] Images from the original note were not [...] had septic pulmonary emboli Infection Control Recommendations [place] Precautions Contact Isolation Antimicrobial Stewardship Recommendations Simplification [...] he is a heroin user Went to [place] with shortness of breath and fever, hypoxic [...] with right-sided PICC line. C T scan [facility] 12/11 suggestive of multifocal septic emboli with [...] use: Yes Types: Cocaine, Opiates , Marijuana ([place]), Methamphetamines (Crystal Meth) Comment: quit heroin Nov [...] Friends and Family: Not on file Attends Quaker Services: Not on file Active Member of [...] Internal Medicine Resident, PGY-1 Infectious Disease Service, [facility]. I have discussed the care [...] from the original note were not included. [facility] Office: [phone] Mikie Rodriguez DO, Theo Lerma DO, Stuart Natarajan DO, Harpal Tran DO, Prashanth Sadler MD, Deana Raza MD, Florencia Canela MD, Tess Ford MD, Yuliana Saenz MD, Leodan Mak MD, Marimar Ren MD, Fabricio Syed DO, Kyle Broussard DO, Juan Driver MD, Sophia Agustin DO, Lyle Woods MD, Jodi Bain MD, Palomo Drummond MD, Radha Avila MD, Alberto Perez MD, Teresa Quintero, COMPRESSOR STATION ENGINEER CHIEF, Tika Hernandez, COMPRESSOR STATION ENGINEER CHIEF, Mary Meléndez, COMPRESSOR STATION ENGINEER CHIEF, Cathleen Moran, [facility], Abdirahman Bella, COMPRESSOR STATION ENGINEER CHIEF, Leslie Rao, COMPRESSOR STATION ENGINEER CHIEF, Madalyn Dixon, COMPRESSOR STATION ENGINEER CHIEF, Ro Bernard, COMPRESSOR STATION ENGINEER CHIEF, Carter Charles, COMPRESSOR STATION ENGINEER CHIEF, Mckayla Abraham PA-C, Eli Fu, DNP, Razia Figueroa, DNP, Keri Walker, COMPRESSOR STATION ENGINEER CHIEF, Sherrie Rea, COMPRESSOR STATION ENGINEER CHIEF, Moon Waldrop, COMPRESSOR STATION ENGINEER CHIEF, Ethel Soto, COMPRESSOR STATION ENGINEER CHIEF, Jazzy Javier, COMPRESSOR STATION ENGINEER CHIEF, Shelli Menon, COMPRESSOR STATION ENGINEER CHIEF [facility] IN-PATIENT SERVICE [facility] Progress Note 12/19/2021 8:19 AM Name: Tip Ansari Acct: [id number] Room: [address] [place] [address] Day: 6 Admit Date: 12/13/2021 6:34 PM [...] with weakness. He was directly admitted from [facility] Dec 13 for the management of Septic embolism (HCC). Pt has used Heroin intermittently several years Presented to [facility] ED 12/11 with 2 day hx of [...] drug use. Drugs: Cocaine, Opiates , Marijuana ([place]), and Methamphetamines (Crystal Meth). He reports that [...] Results Component Value Date PHART 7.380 12/16/2020 [id number] 44.5 12/16/2020 PO2ART 94.4 12/16/2020 LQI6SPD 25.7 12/16/2020 NBEA NOT REPORTED 12/16/2020 PBEA 0.3 12/16/2020 [id number] 97.1 12/16/2020 FIO2 28 12/16/2020 Lab Results [...] seen. Mild MR noted. Calcium8.4 Low mg/dL [id number] Low mmol/L Potassium5.4 High Follow-up chest x-ray: [...] Training,Pain Management,Safety Education & Training,Self-Care / ADL [facility] Score -[facility] Inpatient Daily Activity Raw Score: 19 (12/18/211642) AM-[facility] Inpatient ADL T-Scale Score : 40.22 (12/18/211642) [...] BREE Balderrama OTR/L Physical Therapy Facility/Department: [facility] RENAL//MED SURG Daily Treatment Note NAME: Tip Ansari : 1980 Date of Service: 12/18/2021 No chief complaint on file. Weakness, chest pain, shortness of breath Tip Ansari is a 41 y.o. male who presents with weakness. Pt was admitted from [facility] Dec 13 for the management of Septic [...] from the original note were not included. [facility] Office: [phone] Mikie Rodriguez DO, Theo Lerma DO, Stuart [...] Perez MD, Teresa Quintero CNP, Tika Hernandez COMPRESSOR STATION ENGINEER CHIEF, Mary Meléndez, COMPRESSOR STATION ENGINEER CHIEF, Cathleen Moran, AUTOMOBILE SERVICE STATION MANAGER, Abdirahman Bella, COMPRESSOR STATION ENGINEER CHIEF, Leslie Rao, COMPRESSOR STATION ENGINEER CHIEF, Madalyn Dixon, COMPRESSOR STATION ENGINEER CHIEF, Ro Bernard, COMPRESSOR STATION ENGINEER CHIEF, Carter Charles, COMPRESSOR STATION ENGINEER CHIEF, KO HunterC, Eli Fu, DNP, Razia Figueroa, DNP, Keri Walker, COMPRESSOR STATION ENGINEER CHIEF, Sherrie Rea, COMPRESSOR STATION ENGINEER CHIEF, Moon Waldrop, COMPRESSOR STATION ENGINEER CHIEF, Ethel Soto COMPRESSOR STATION ENGINEER CHIEF, Jazzy Javier COMPRESSOR STATION ENGINEER CHIEF, Shelli Menon COMPRESSOR STATION ENGINEER CHIEF [facility] IN-PATIENT SERVICE [facility] Progress Note 12/18/2021 12:26 PM Name: Tip Ansari Acct: [id number] Room: 0316/0316-01 Day: 5 Admit Date: 12/13/2021 [...] with weakness. He was directly admitted from [facility] Dec 13 for the management of Septic embolism (HCC). Pt has used Heroin intermittently several years Presented to [facility] ED 12/11 with 2 day hx of [...] drug use. Drugs: Cocaine, Opiates , Marijuana ([place]), and Methamphetamines (Crystal Meth). He reports that [...] No results for input(s): PROT, LABALBU, LABA1C, T7RYQPR, U5IHSCG, FT4, TSH, AST, ALT, LDH, GGT, ALKPHOS, LABGGT, BILITOT, BILIDIR, AMMONIA, AMYLASE, LIPASE, LACTATE, CHOL, HDL, LDLCHOLESTEROL, CHOLHDLRATIO, TRIG, VLDL, XCU76QO, PHENYTOIN, PHENYF, URICACID, POCGLU in the last 72 hours. ABG: Lab Results Component Value Date PHART 7.380 12/16/2020 [id number] 44.5 12/16/2020 PO2ART 94.4 12/16/2020 ELD4SXR 25.7 12/16/2020 NBEA NOT REPORTED 12/16/2020 PBEA 0.3 12/16/2020 S4RGBGBH 97.1 12/16/2020 FIO2 28 12/16/2020 Lab Results [...] bolus of normal saline and monitor 9. in flight refueling manager to help with discharge planning for outpatient IV antibiotics, can be discharged once that is arranged Marimar Ren MD 12/18/2021 12:26 PM Images from the original note were not included. [employer] Application Support Technician Progress Note Date: 12/18/2021 Patient name: Tip [...] echo after ATB course as OP [employer] [phone] Images from the original note were not [...] weekly vs dalbavancin weekly Infection Control Recommendations [place] Precautions Contact Isolation Antimicrobial Stewardship Recommendations Simplification [...] he is a heroin user Went to [place] with shortness of breath and fever, hypoxic [...] 2 12/18 pending Imaging: C T scan [facility] 12/11 suggestive of multifocal septic emboli with [...] There is no mass. Genitourinary: Comments: No rotiz Musculoskeletal: General: No swelling, tenderness, deformity or [...] use: Yes Types: Cocaine, Opiates , Marijuana ([place]), Methamphetamines (Crystal Meth) Comment: quit heroin Nov [...] Friends and Family: Not on file Attends Quaker Services: Not on file Active Member of [...] meaningcan be extrapolated by contextual diversion. Danielle eRn MD Internal Medicine Resident, PGY-1 Infectious Disease Service, [facility]. I have discussed the care [...] García, PGY-2 Orthopedic Surgery 4:33 AM 12/18/2021 [facility] Pharmacokinetic Monitoring Service - Vancomycin [...] blood culture still negative Infection Control Recommendations [place] Precautions Contact Isolation Antimicrobial Stewardship Recommendations Simplification [...] he is a heroin user Went to [place] with shortness of breath and fever, hypoxic [...] wrist: No growth Imaging: C T scan [facility] 12/11 suggestive of multifocal septic emboli with [...] use: Yes Types: Cocaine, Opiates , Marijuana ([place]), Methamphetamines (Crystal Meth) Comment: quit heroin Nov [...] Friends and Family: Not on file Attends Quaker Services: Not on file Active Member of [...] Dumont MD Office: Perfect serve / office [phone] Images from the original note were not included. [place] Application Support Technician Progress Note Date: 12/17/2021 Patient name: Tip [...] echo after ATB course as OP [place] Application Support Technician [facility]. [phone] Orthopedic Progress Note Patient: Tip Ansari, 41 [...] - Please reach out to ortho resident environmental consultant with any questions - Follow up w/ Dr. Barajas as needed outpatient . Images from the original note were not included. [facility] Office: [phone] Mikie Rodriguez DO, Theo Lerma DO, Stuart Natarajan DO, Harpal Tran DO, Prashanth Sadler MD, Deana Raza MD, Florencia Canela MD, Tess Ford MD, Yuliana Saenz MD, Leodan Mak MD, Marimar Ren MD, Fabricio Syed DO, Kyle Broussard DO, Juan Driver MD, Sophia Agustin DO, Lyle Woods MD, Jodi Bain MD, Palomo Drummond MD, Radha Avila MD, Alberto Perez MD, Teresa Quintero, COMPRESSOR STATION ENGINEER CHIEF, Tika Hernandez, COMPRESSOR STATION ENGINEER CHIEF, Mary Meléndez, COMPRESSOR STATION ENGINEER CHIEF, Cathleen Moran, AUTOMOBILE SERVICE STATION MANAGER, Abdirahman Bella, COMPRESSOR STATION ENGINEER CHIEF, Leslie Rao, COMPRESSOR STATION ENGINEER CHIEF, Madalyn Dixon, COMPRESSOR STATION ENGINEER CHIEF, Ro Bernard, COMPRESSOR STATION ENGINEER CHIEF, Carter Charles, COMPRESSOR STATION ENGINEER CHIEF, Mckayla Abraham PA-C, Eli Fu, DNP, Razia Figueroa, DNP, Keri Walker, COMPRESSOR STATION ENGINEER CHIEF, Sherrie Rea, COMPRESSOR STATION ENGINEER CHIEF, Moon Waldrop, COMPRESSOR STATION ENGINEER CHIEF, Ethel Soto, COMPRESSOR STATION ENGINEER CHIEF, Jazzy Javier, COMPRESSOR STATION ENGINEER CHIEF, Shelli Menon, COMPRESSOR STATION ENGINEER CHIEF [facility] IN-PATIENT SERVICE [facility] Progress Note 12/17/2021 12:05 PM Name: Tip Ansari Acct: [id number] Room: [address] [place] [address] Day: 4 Admit Date: 12/13/2021 6:34 PM [...] with weakness. He was directly admitted from [facility] Dec 13 for the management of Septic embolism (HCC). Pt has used Heroin intermittently several years Presented to [facility] ED 12/11 with 2 day hx of [...] drug use. Drugs: Cocaine, Opiates , Marijuana ([place]), and Methamphetamines (Crystal Meth). He reports that [...] Results Component Value Date PHART 7.380 12/16/2020 CQU2CYM 44.5 12/16/2020 PO2ART 94.4 12/16/2020 PDD3NFQ 25.7 12/16/2020 NBEA NOT REPORTED 12/16/2020 PBEA 0.3 12/16/2020 [id number] 97.1 12/16/2020 FIO2 28 12/16/2020 Lab Results [...] GI 7. Substance abuse outpatient rehab 8. in flight refueling manager to help with discharge planning for [...] blood culture still negative Infection Control Recommendations [place] Precautions Contact Isolation Antimicrobial Stewardship Recommendations Simplification [...] he is a heroin user Went to [place] with shortness of breath and fever, hypoxic [...] X 2 MRSA Imaging: C T scan [facility] 12/11 suggestive of multifocal septic emboli with [...] use: Yes Types: Cocaine, Opiates , Marijuana ([place]), Methamphetamines (Crystal Meth) Comment: quit heroin Nov [...] Friends and Family: Not on file Attends Quaker Services: Not on file Active Member of [...] Dumont MD Office: Perfect serve / office [phone] ATTESTATION: I have discussed the case, including [...] from the original note were not included. [facility] Office: [phone] Mikie Rodriguez DO, Theo Lerma DO, Stuart [...] Perez MD, Teresa Quintero CNP, Tika Hernandez COMPRESSOR STATION ENGINEER CHIEF, Mary Meléndez COMPRESSOR STATION ENGINEER CHIEF, Cathleen Moran, AUTOMOBILE SERVICE STATION MANAGER, Abdirahman Bella, COMPRESSOR STATION ENGINEER CHIEF, Leslie Rao, COMPRESSOR STATION ENGINEER CHIEF, Madalyn Dixon, COMPRESSOR STATION ENGINEER CHIEF, Ro Bernard, COMPRESSOR STATION ENGINEER CHIEF, Carter Charles, COMPRESSOR STATION ENGINEER CHIEF, Mckayla Abraham PA-C, Eli Fu DNP, Razia Figueroa DNP, Keri Walker, PABLO, Sherrie Rea, PABLO, Moon Waldrop, PABLO, Ethel Soto CNP, Jazzy Javier CNP, Shelli Menon CNP [facility] IN-PATIENT SERVICE [facility] Progress Note 12/16/2021 12:34 PM Name: Tip Ansari Acct: [id number] Room: [address] [place] [address] IP Day: 3 Admit Date: 12/13/2021 6:34 [...] with weakness. He was directly admitted from [facility] Dec 13 for the management of Septic embolism (HCC). Pt has used Heroin intermittently several years Presented to [facility] ED 12/11 with 2 day hx of [...] drug use. Drugs: Cocaine, Opiates , Marijuana ([place]), and Methamphetamines (Crystal Meth). He reports that [...] Results Component Value Date PHART 7.380 12/16/2020 CWO9EWJ 44.5 12/16/2020 PO2ART 94.4 12/16/2020 TLA1URP 25.7 12/16/2020 NBEA NOT REPORTED 12/16/2020 PBEA 0.3 12/16/2020 Y2FWCEJG 97.1 12/16/2020 FIO2 28 12/16/2020 Lab Results [...] GI 7. Substance abuse outpatient rehab 8. in flight refueling manager to help with discharge planning for [...] blood culture still negative Infection Control Recommendations [place] Precautions Contact Isolation Antimicrobial Stewardship Recommendations Simplification [...] he is a heroin user Went to [place] with shortness of breath and fever, hypoxic [...] X 2 MRSA Imaging: C T scan [facility] 12/11 suggestive of multifocal septic emboli with [...] use: Yes Types: Cocaine, Opiates , Marijuana ([place]), Methamphetamines (Crystal Meth) Comment: quit heroin Nov [...] Friends and Family: Not on file Attends Quaker Services: Not on file Active Member of [...] Andrea MD Office: Perfect serve / office [phone] Patient admitted, consent signed and questions answered. Patient ready for procedure. Call light to reach with side rails up 2 of 2. No family at bedside with patient. History and physical complete. Images from the original note were not included. [facility] Office: [phone] Mikie Rodriguez DO, Theo Lerma DO, Stuart [...] Perez MD, Teresa Quintero CNP, Tika Hernandez COMPRESSOR STATION ENGINEER CHIEF, Mary Meléndez, COMPRESSOR STATION ENGINEER CHIEF, Cathleen Moran, AUTOMOBILE SERVICE STATION MANAGER, Abdirahman Bella, PABLO, Leslie Rao CNP, Madalyn Dixon CNP, Ro Bernard, PABLO, Carter Charles, PABLO, Mckayla Abraahm PA-C, Eli Fu DNP, Razia Figueroa DNP, Keri Walker, PABLO, Sherrie Rea CNP, Moon Waldrop CNP, Ethel Soto CNP, Jazzy Javier CNP, Shelli Menon, PABLO [facility] IN-PATIENT SERVICE [facility] Progress Note 12/15/2021 3:28 PM Name: Tip Ansari Acct: [id number] Room: 03104-11 Day: 2 Admit Date: 12/13/2021 [...] with weakness. He was directly admitted from [facility] Dec 13 for the management of Septic embolism (HCC). Pt has used Heroin intermittently several years Presented to [facility] ED 12/11 with 2 day hx of [...] drug use. Drugs: Cocaine, Opiates , Marijuana ([place]), and Methamphetamines (Crystal Meth). He reports that [...] Results Component Value Date PHART 7.380 12/16/2020 HGG2YGW 44.5 12/16/2020 PO2ART 94.4 12/16/2020 UZH4VTY 25.7 12/16/2020 NBEA NOT REPORTED 12/16/2020 PBEA 0.3 12/16/2020 T1RMIQNE 97.1 12/16/2020 FIO2 28 12/16/2020 Lab Results [...] Internal Medicine Residency Program 12/15/2021, 4:34 PM [facility] Pharmacokinetic Monitoring Service - Vancomycin [...] 12/15/2021 1:42 PM Physical Therapy Facility/Department: [facility] RENAL//MED SURG Initial Assessment NAME: Tip [...] Bed mobility Supine to Sit: Minimal assistance (ACCESS ANALYST for trunk progression) Sit to Supine: (pt [...] Progress Note PATIENT: BRIE ANSARIS CSN #: [id number] : 1980 ADMIT DATE: 12/13/2021 6:34 PM [...] with brown/yellow phlegm, Treatment: monitor, transfer from [facility], oxygen therapy. Thank You, Johann RN, CDS- email - [email or web address]- [phone] office hours [id number] Acute Respiratory Failure Clinical Indicators per 3M [...] from the original note were not included. [facility] Office: [phone] Mikie Rodriguez DO, Theo Lerma DO, Stuart Natarajan DO, Harpal Tran DO, Prashanth Sadler MD, Deana Raza MD, Florencia Canela MD, Tess Ford MD, Yuliana Saenz MD, Leodan Mak MD, Marimar Ren MD, Fabricio Syed DO, Kyle Broussard DO, Juan Driver MD, Sophia Agustin DO, Lyle Woods MD, Jodi Bain MD, Palomo Drummond MD, Radha Avila MD, Alberto Perez MD, Teresa Quintero, COMPRESSOR STATION ENGINEER CHIEF, Tika Hernandez, COMPRESSOR STATION ENGINEER CHIEF, Mary Meléndez, COMPRESSOR STATION ENGINEER CHIEF, Cathleen Moran, AUTOMOBILE SERVICE STATION MANAGER, Abdirahman Bella, COMPRESSOR STATION ENGINEER CHIEF, Leslie Rao, COMPRESSOR STATION ENGINEER CHIEF, Madalyn Dixon, COMPRESSOR STATION ENGINEER CHIEF, Ro Bernard, COMPRESSOR STATION ENGINEER CHIEF, Carter Charles, COMPRESSOR STATION ENGINEER CHIEF, Mckayla Abraham PA-C, Eli Fu, FÉLIX, Razia Figueroa, DNP, Keri Walker, COMPRESSOR STATION ENGINEER CHIEF, Sherrie Rea, COMPRESSOR STATION ENGINEER CHIEF, Moon aWldrop, COMPRESSOR STATION ENGINEER CHIEF, Ethel Soto, COMPRESSOR STATION ENGINEER CHIEF, Jazzy Javier, COMPRESSOR STATION ENGINEER CHIEF, Shelli Menon, COMPRESSOR STATION ENGINEER CHIEF [facility] IN-PATIENT SERVICE [facility] Progress Note 12/14/2021 2:34 PM Name: Tip Ansari Acct: [id number] Room: [facility] Day: 1 Admit Date: 12/13/2021 6:34 PM [...] with weakness. He was directly admitted from [facility] Dec 13 for the management of Septic embolism (HCC). Pt has used Heroin intermittently several years Presented to [facility] ED 12/11 with 2 day hx of [...] drug use. Drugs: Cocaine, Opiates , Marijuana ([place]), and Methamphetamines (Crystal Meth). He reports that [...] No results for input(s): PROT, LABALBU, LABA1C, N7DVLSK, G0TZWNA, FT4, TSH, AST, ALT, LDH, GGT, ALKPHOS, LABGGT, BILITOT, BILIDIR, AMMONIA, AMYLASE, LIPASE, LACTATE, CHOL, HDL, LDLCHOLESTEROL, CHOLHDLRATIO, TRIG, VLDL, [id number], PHENYTOIN, PHENYF, URICACID, POCGLU in the last 72 hours. ABG: Lab Results Component Value Date PHART 7.380 12/16/2020 BSG5CNJ 44.5 12/16/2020 PO2ART 94.4 12/16/2020 MQO9DXP 25.7 12/16/2020 NBEA NOT REPORTED 12/16/2020 PBEA 0.3 12/16/2020 [id number] 97.1 12/16/2020 FIO2 28 12/16/2020 Lab Results [...] was ordered by ID Outpatient GI follow-up farmworkers to help with outpatient rehab Replace potassium [...] loss Fluid Accumulation: No significant fluid accumulation Food And Drug Inspector Strength: Not Performed Estimated Daily Nutrient Needs: Energy (kcal): 25-27 kcal/kg = 2189-7887 kcals/day; Weight Used for Energy Requirements: Current [...] lb (85.7 kg) (05/2021 per chart review) [place] Body Weight: 184 lbs; % [place] Body Weight 92.4 % BMI: 22.4 BMI [...] Planning: Too soon to determine Contact: [address] [facility] Pharmacokinetic Monitoring Service - Vancomycin [...] 12/14/2021 12:41 AM [facility]21 Hospital Discharge instructions Chasity Walker [...] Dr. Barajas in his office. Call Call [phone] to schedule/confirm. [facility]21 and 12-29-21 at 3pm documented in this encounter [facility] [employer] Phone: 12-16-2021 Note [facility] Vascular Upper Extremities Veins Procedure Patient Name COTY Date of Study 12/16/2021 TIP Boni Date of 1980 Gender Male Age 41 year(s) Race Room Number 0316 Height: 73 inch, 185.42 cm Corporate ID [id number] Weight: 170 pounds, 77.1 kg # Patient Acct [id number] BSA: 2.01 m^2 BMI: 22.43 kg/m^2 # MR # [id number] Finished Goods Stock Clerk Vivienne Roach RVT Interpreting Physician Gordo Juárez [...] +----- (more content not included)... [facility] 12-16-2021 Note [facility] Vascular Lower Extremities DVT Study Procedure Patient Name COTY Date of Study 12/16/2021 TIP Plata Date of 1980 Gender Male Age 41 year(s) Race Room Number 0316 Height: 73 inch, 185.42 cm Corporate ID [id number] Weight: 170 pounds, 77.1 kg # Patient Acct [id number] BSA: 2.01 m^2 BMI: 22.43 kg/m^2 # MR # [id number] Finished Goods Stock Clerk Vivienne Roach RVT Interpreting Physician Gordo Juárez [...] !Josey (more content not included)... [facility] 05-29-2021 Note [facility] Vascular Lower Extremities DVT Study Procedure Patient Name COTY Date of Study 05/29/2021 TIP Plata Date of 1980 Gender Male Age 41 year(s) Race Room Number 06 Corporate ID [id number] # Patient Acct [id number] # MR # [id number] Finished Goods 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 Procedure Type of Study: Veins: Lower Extremities [...] ---------+ !Prox Femo (more content not included)... [employer] Phone: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
[2025-05-15] VITALS (75 sets, daily range): BP systolic 99–127; BP diastolic 59–80; PULSE 56–91; TEMP 36.4–36.9; O2SAT 94–98
[2025-05-15] MEDS: ENOXAPARIN SODIUM 40 MG/0.4 ML SYRINGE SUBQ ×2 (00:27→23:19)
[2025-05-15] MEDS: 0.9 % SODIUM CHLORIDE 1,000 ML 125 ML IV ×2 (00:28→08:25)
[2025-05-15 06:58] LABS: Hematocrit 41.4 % (42.0-54.0); Hemoglobin 14.3 g/dL (14.0-18.0); Mean Corpuscular HGB Conc 34.5 g/dL (29.9-35.2); Mean Corpuscular Hemoglobin 31.4 pg (25.9-34.0); Mean Corpuscular Volume 91.0 fL (80.0-94.0); Platelet Count 119 10^3/uL (150-450); Red Blood Count 4.55 10^6/uL (4.70-6.10); White Blood Count 5.6 10^3/uL (4.0-11.0)
--- NOTE | 2025-05-15 07:00 | ECG_ITS ---
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 Measurements Intervals [place] Rate: 63 P: 51 MS: 162 QRS: 78 QRSD: 90 T: 72 QT: 430 QTc: 437 Interpretive Statements 1100 Sinus rhythm 2420 RSR (QR) in lead V1/V2, consistent with right ventricular conduction delay 9130 borderline ECG Compared to ECG 05/14/2025 18:35:11 No significant changes Electronically Signed On 05-16-2025 17:22:37 EDT by CINDA HAN M.D.
[2025-05-15 07:17] LABS: Alanine Aminotransferase 28 U/L (16-63); Albumin Globulin Ratio 0.8; Albumin Level 2.8 g/dL (3.4-5.0); Alkaline Phosphatase 74 U/L (46-116); Anion Gap 12.1; Aspartate Amino Transferase 15 U/L (15-37); Blood Urea Nitrogen 13.0 mg/dL (7.0-18.0); Calcium 8.7 mg/dL (8.5-10.1); Carbon Dioxide 28.7 mmol/L (21.0-32.0); Chloride 109 mmol/L (98-107); Cholesterol 129 mg/dL (<=200); Estimated GFR (African America >60 (>=60 mL/min/1.73m^2); Estimated GFR (Non-African Ame >60 (>=60 mL/min/1.73m^2); Globulin 3.4 g/dL; Glucose 97 mg/dL (74-106); HDL Cholesterol 54 mg/dL (40-60); Potassium 3.8 mmol/L (3.5-5.1); Sodium 146 mmol/L (136-145); Total Protein 6.2 g/dL (6.4-8.2); Triglycerides 76 mg/dL (<=150); VLDL CHOLESTEROL 15.2 mg/dL
[2025-05-15] MEDS: BUPRENORPHINE HCL SL (08:00)
[2025-05-15] MEDS: NALOXONE HCL SL (08:00)
[2025-05-15] MEDS: ASPIRIN 325 MG TABLET PO (08:27)
[2025-05-15] MEDS: NYSTATIN 500,000 UNIT/5 ML ORAL.SUSP 500000 UNIT PO ×2 (08:28→22:07)
--- NOTE | 2025-05-15 09:24 | PM.IMHP1 ---
Internal Medicine - H&P: HPI History of Present Illness Chief complaint: Dizziness Elevated Troponin Narrative: Tip Cadena is a 45 y/o M, h/o infective endocarditis w/o valve replacement, IVDU sober past 3 years, inhaled heroin use with recent relapse, currently sober and on suboxone therapy, recent presentation to ER on 05/06/25 with upper respiratory tract infection, presented to [facility] 05/14/25 with sudden onset intermittent lightheadedness, found to have troponin elevation prompting medical admission. On assessment at bedside in regular nursing floor, patient resting comfortably in bed, denies any dizziness at this time, denies any past 2 days, states lightheadedness has been intermittent, denies any palpitations, chest pain, shortness of breath. Denies any IV drug use for the past 3 years, has relapsed recently with heroin use however inhales. No cough, nausea, vomiting, symptoms of upper respiratory tract infection from last week involving cough is largely resolved. No positional chest pain. Review of Systems ROS Status of ROS 10 or more systems reviewed and unremarkable except as noted in history and below [facility] Medical History Heroin addiction ?F11.20 - Opioid dependence, uncomplicated (ICD-10) Endocarditis ?I38 - Endocarditis, valve unspecified (ICD-10) Social History (Updated 05/14/25 @ 23:35 by Berto Mcneill, ANSELMO) Within the past year, how often did you have a drink containing alcohol: never Score interpretation: A score less than 4 is consistent with normal alcohol consumption. 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 Little interest or pleasure in doing things: not at all Feeling down, depressed, or hopeless: not at all Meds Home Medications and Allergies Home Medications ?Medication ?Instructions ?Recorded ?Confirmed ?Type albuterol sulfate 90 mcg/actuation 2 puff inhalation Q4H PRN 05/14/25 05/14/25 History aerosol inhaler shortness of breath or wheezing sxkcisyypvyyngo-celwtxwfzbrwiwq-JR 5 ml PO Q4H PRN sinus symptoms 05/14/25 05/14/25 History 2 mg-30 mg-10 mg/5 mL oral syrup buprenorphine 8 mg-naloxone 2 mg 1 film sublingual DAILY 05/14/25 05/14/25 History sublingual film (Suboxone) Allergies Allergy/AdvReac Type Severity Reaction Status Date / Time Penicillins Allergy Unknown Unknown Verified 05/06/25 21:02 vancomycin Allergy Redness of Verified 05/06/25 21:02 Skin Exam Narrative Exam Narrative: Gen.: Awake, alert, in no distress Head: Normocephalic, atraumatic ENT: Moist mucous membranes Respiratory: No respiratory distress, lungs clear bilaterally Cardio: Regular rate and rhythm Gastrointestinal: Abdomen is soft, nondistended and nontender to palpation Extremities: Moves extremities equally Psych: Normal mood and affect Neuro: No focal neuro deficit Skin: Warm, dry, intact Constitutional Vital Signs, click to edit/add: Last Vital Signs Temp 98.4 F 05/15/25 08:01 Pulse 66 05/15/25 09:00 Resp 16 05/15/25 09:00 BP 127/80 05/15/25 08:01 Pulse Ox 98 05/15/25 05:22 O2 Del Method Room Air 05/14/25 22:55 Internal Medicine - H&P: Reslt Labs Labs: Short CBC 05/14/25 05/15/25 Range/Units 16:05 06:22 WBC 7.0 5.6 (4.0-11.0) 10^3/uL Hgb 14.5 14.3 (14.0-18.0) g/dL Hct 41.3 L 41.4 L (42.0-54.0) % Plt Count 121 L 119 L (150-450) 10^3/uL BMP 05/14/25 05/15/25 16:05 06:22 Sodium 141 146 H Potassium 3.8 3.8 Chloride 104 109 H Carbon Dioxide 31.6 28.7 BUN 11.0 13.0 Creatinine 0.98 0.79 Glucose 109 H 97 Calcium 9.2 8.7 Liver Function 05/15/25 Range/Units 06:22 Total Bilirubin 0.6 (0.2-1.0) mg/dL AST 15 (15-37) U/L ALT 28 (16-63) U/L Alkaline Phosphatase 74 (46-116) U/L Albumin 2.8 L (3.4-5.0) g/dL Urine 05/14/25 Range/Units 16:44 Urine Color Lt. yellow (YELLOW) Urine Clarity Clear (CLEAR) Urine pH 7.0 (5.0-9.0) Ur Specific Brickeys 1.010 (1.005-1.025) Urine Protein Negative (NEG/TRACE) mg/dL Urine Glucose (UA) Negative (NEGATIVE) mg/dL Assessment and Plan Assessment and Plan (1) Elevated troponin: (2) Dizziness: (3) Endocarditis: (4) Heroin addiction: Plan Tip Cadena is a 45 y/o M, h/o left sided infective endocarditis w/o valve replacement, IVDU sober past 3 years, inhaled heroin use with recent relapse, currently sober and on suboxone therapy, recent presentation to ER on 05/06/25 with upper respiratory tract infection, presented to [facility] 05/14/25 with sudden onset intermittent lightheadedness, found to have troponin elevation prompting medical admission. 1. dizziness with troponin elevation in the setting of h/o left sided infective endocarditis w/o valve replacement - hemodynamically stable w/o any chest pain at present, received aspirin 324 in ER - differential includes viral myocarditis given recent upper respiratory tract infection vs endocarditis/aortic insufficiency - continue to trend troponin, hold on therapeutic lovenox for now - bedside POCUS with limited views, no obvious pericardial effusion, unable to visualize valves but no obvious wall motion abnormalities on 4 chamber view - cardiology consulted to determine need for ischemic work up vs transfer pending echo results 2. h/o IVDU sober past 3 years, inhaled heroin use with recent relapse - Utox clear - continue home suboxone Diet: regular Lines/tubes: PIV VTE prophylaxis: lovenox prophylaxis Code status: full Dispo: inpatient
--- NOTE | 2025-05-15 10:50 | PC.NURSE ---
Dr. Weaver gave verbal orders in the patient's room to not give lovenox 70mg or metoprolol at this time.
[2025-05-15 13:22] LABS: SARS-CoV-2 Ag NEGATIVE (NEGATIVE)
[2025-05-15] MEDS: ACETAMINOPHEN 500 MG TABLET PO (22:32)
[2025-05-16] VITALS (17 sets, daily range): BP systolic 110–128; BP diastolic 71–87; PULSE 66–99; TEMP 36.4–36.9; O2SAT 94–96
[2025-05-16] MEDS: BUPRENORPHINE HCL SL (08:23)
[2025-05-16] MEDS: NALOXONE HCL SL (08:23)
[2025-05-16] MEDS: NYSTATIN 500,000 UNIT/5 ML ORAL.SUSP 500000 UNIT PO ×2 (08:23→22:12)
[2025-05-16 10:11] LABS: Hematocrit 43.4 % (42.0-54.0); Hemoglobin 14.9 g/dL (14.0-18.0); Immature Granulocytes Abs Auto 0.02 10^3/uL (0.00-0.03); Immature Granulocytes Pct Auto 0.5 % (0.0-0.5); Lymphocytes Absolute Auto 1.2 10^3/uL (1.2-3.8); Mean Corpuscular HGB Conc 34.3 g/dL (29.9-35.2); Mean Corpuscular Hemoglobin 31.3 pg (25.9-34.0); Mean Corpuscular Volume 91.2 fL (80.0-94.0); Platelet Count 124 10^3/uL (150-450); Red Blood Count 4.76 10^6/uL (4.70-6.10); White Blood Count 4.4 10^3/uL (4.0-11.0)
[2025-05-16 10:20] LABS: Anion Gap 8.7; Blood Urea Nitrogen 15.0 mg/dL (7.0-18.0); Calcium 8.8 mg/dL (8.5-10.1); Carbon Dioxide 30.4 mmol/L (21.0-32.0); Chloride 108 mmol/L (98-107); Estimated GFR (African America >60 (>=60 mL/min/1.73m^2); Estimated GFR (Non-African Ame >60 (>=60 mL/min/1.73m^2); Glucose 93 mg/dL (74-106); Potassium 4.1 mmol/L (3.5-5.1); Sodium 143 mmol/L (136-145)
--- NOTE | 2025-05-16 12:59 | P.IMPN_ITS ---
Progress Note: A&P Assessment and Plan (1) Elevated troponin: (2) Dizziness: (3) Endocarditis: (4) Heroin addiction: Plan Tip Cadena is a 45 y/o M, h/o left sided infective endocarditis w/o valve replacement, IVDU sober past 3 years, inhaled heroin use with recent relapse, currently sober and on suboxone therapy, recent presentation to ER on 05/06/25 with upper respiratory tract infection, presented to [facility] 05/14/25 with sudden onset intermittent lightheadedness, found to have troponin elevation prompting medical admission. 1. dizziness with troponin elevation in the setting of h/o left sided infective endocarditis w/o valve replacement - hemodynamically stable w/o any chest pain at present, received aspirin 324 in ER - differential includes viral myocarditis given recent upper respiratory tract infection vs endocarditis/aortic insufficiency - hold on therapeutic lovenox for now - Hstroponin I peaked at 239.5, down trended - bedside POCUS with limited views, no obvious pericardial effusion, unable to visualize valves but no obvious wall motion abnormalities on 4 chamber view - awaiting formal TTE and blood culture results - cardiology consulted to determine need for ischemic work up vs transfer pending echo results 2. h/o IVDU sober past 3 years, inhaled heroin use with recent relapse - Utox clear - continue home suboxone Diet: regular Lines/tubes: PIV VTE prophylaxis: lovenox prophylaxis Code status: full Dispo: inpatient Internal Medicine - PN: Subj Subjective Interval history: Remains comfortable in bed, no palpitations or chest pain Exam Narrative Exam Narrative: Gen.: Awake, alert, in no distress Head: Normocephalic, atraumatic ENT: Moist mucous membranes Respiratory: No respiratory distress, lungs clear bilaterally Cardio: Regular rate and rhythm Gastrointestinal: Abdomen is soft, nondistended and nontender to palpation Extremities: Moves extremities equally Psych: Normal mood and affect Neuro: No focal neuro deficit Skin: Warm, dry, intact Constitutional Vital Signs, click to edit/add: Last Vital Signs Temp 97.7 F 05/16/25 08:27 Pulse 96 H 05/16/25 12:00 Resp 16 05/16/25 08:27 BP 117/77 05/16/25 08:27 Pulse Ox 96 05/16/25 09:04 O2 Del Method Room Air 05/16/25 09:04 Internal Medicine - PN: Obj Da Labs Labs: Laboratory Results - last 24 hr 05/15/25 05/15/25 05/15/25 12:58 14:38 20:19 WBC RBC Hgb Hct MCV MCH MCHC RDW Plt Count MPV Neut % (Auto) Lymph % (Auto) [place] % (Auto) Eos % (Auto) Baso % (Auto) Neut # (Auto) Lymph # (Auto) [place] # (Auto) Eos # (Auto) Baso # (Auto) Abs Immat Gran (auto) Imm/Tot Granulo (auto) Sodium Potassium Chloride Carbon Dioxide Anion Gap BUN Creatinine Est GFR ( Amer) Est GFR (Non-Af Amer) BUN/Creatinine Ratio Glucose Calcium Troponin I High Sens 219.8 H* 217.0 H* SARS-CoV-2 Ag (CV2AG) Negative 05/15/25 05/16/25 23:31 09:55 WBC 4.4 RBC 4.76 Hgb 14.9 Hct 43.4 MCV 91.2 MCH 31.3 MCHC 34.3 RDW 13.0 Plt Count 124 L MPV 8.9 L Neut % (Auto) 48.9 Lymph % (Auto) 27.8 [place] % (Auto) 12.2 H Eos % (Auto) 9.9 H Baso % (Auto) 0.7 Neut # (Auto) 2.1 Lymph # (Auto) 1.2 [place] # (Auto) 0.5 Eos # (Auto) 0.4 Baso # (Auto) 0.0 Abs Immat Gran (auto) 0.02 Imm/Tot Granulo (auto) 0.5 Sodium 143 Potassium 4.1 Chloride 108 H Carbon Dioxide 30.4 Anion Gap 8.7 BUN 15.0 Creatinine 0.84 Est GFR ( Amer) >60 Est GFR (Non-Af Amer) >60 BUN/Creatinine Ratio 17.9 Glucose 93 Calcium 8.8 Troponin I High Sens 209.6 H* SARS-CoV-2 Ag (CV2AG)
[2025-05-16] MEDS: ENOXAPARIN SODIUM 40 MG/0.4 ML SYRINGE SUBQ (23:30)
[2025-05-17] VITALS (11 sets, daily range): BP systolic 115–132; BP diastolic 82–89; PULSE 77–100; TEMP 36.6–36.7; O2SAT 95–96
[2025-05-17 05:59] LABS: Hematocrit 45.8 % (42.0-54.0); Hemoglobin 15.7 g/dL (14.0-18.0); Immature Granulocytes Abs Auto 0.01 10^3/uL (0.00-0.03); Immature Granulocytes Pct Auto 0.2 % (0.0-0.5); Lymphocytes Absolute Auto 1.5 10^3/uL (1.2-3.8); Mean Corpuscular HGB Conc 34.3 g/dL (29.9-35.2); Mean Corpuscular Hemoglobin 30.3 pg (25.9-34.0); Mean Corpuscular Volume 88.4 fL (80.0-94.0); Platelet Count 119 10^3/uL (150-450); Red Blood Count 5.18 10^6/uL (4.70-6.10); White Blood Count 5.7 10^3/uL (4.0-11.0)
[2025-05-17 06:18] LABS: Anion Gap 13.8; Blood Urea Nitrogen 16.0 mg/dL (7.0-18.0); Calcium 9.2 mg/dL (8.5-10.1); Carbon Dioxide 27.2 mmol/L (21.0-32.0); Chloride 106 mmol/L (98-107); Estimated GFR (African America >60 (>=60 mL/min/1.73m^2); Estimated GFR (Non-African Ame >60 (>=60 mL/min/1.73m^2); Glucose 97 mg/dL (74-106); Potassium 4.0 mmol/L (3.5-5.1); Sodium 143 mmol/L (136-145)
[2025-05-17] MEDS: NYSTATIN 500,000 UNIT/5 ML ORAL.SUSP 500000 UNIT PO (08:38)
[2025-05-17] MEDS: BUPRENORPHINE HCL SL (08:38)
[2025-05-17] MEDS: NALOXONE HCL SL (08:38)
--- NOTE | 2025-05-17 09:24 | CA_ITS ---
Patient Name: RUTH ANSARI MR#: [id number] : 1980 Exam Date: 05/17/2025 Ordering Doctor: OMARI CARO ECHOCARDIOGRAM REPORT PROCEDURE: CA ECHO W/ CON INDICATIONS: troponin elevation COMPARISON: None. DESCRIPTION: COMPLETE ECHOCARDIOGRAM Real-time transthoracic echocardiography with 2D, M-mode, spectral and color flow Doppler performed. QUALITY: Lumason contrast was administered due to suboptimal imaging for left ventricular opacification to improve delineation of endocardial boarders. LEFT VENTRICLE: Normal chamber size. Thickened septal wall. Ventricular function is difficult to assess due to poor sound transmission despite use of echocardiographic contrast material, but appears within normal limits. LV EF: Normal left ventricular ejection fraction, (55%). DIASTOLIC: Diastolic function is indeterminate. ATRIAL SEPTUM: LEFT ATRIUM: Normal chamber size. RIGHT ATRIUM: Normal chamber size. RIGHT VENTRICLE: Normal chamber size. Normal right ventricular systolic function. TRICUSPID VALVE: Normal mobility and thickness. No stenosis with no regurgitation. Unable to assess right-sided pressures due to lack of measurable tricuspid regurgitation. MITRAL VALVE: Normal mobility and thickness. No evidence of mitral valve stenosis. There is no mitral annular calcification. No mitral regurgitation. AORTIC VALVE: Normal trileaflet appearance. No visible sclerosis. Normal leaflet mobility. No evidence of aortic valve stenosis. No aortic regurgitation. AORTIC ROOT: Normal diameter and appearance, measuring 3.1 cm. PULMONIC VALVE: Normal thickness and mobility. No stenosis. No regurgitation. PERICARDIUM: No evidence of pericardial effusion. IVC: Collapses with inspiration. PLEURA: CONCLUSION: 1. The left ventricle is normal in size and exhibits normal global systolic function. Imaging is difficult due to poor sound transmission despite the use of echocardiographic contrast material. 2. The right ventricle is normal in size and exhibits normal systolic function. 3. No significant valvular dysfunction. 4. Unable to assess right-sided pressures due to lack of measurable tricuspid regurgitation. Adult Echocardiography Procedure Report Left Ventricle LVEDD (3.7 - 5.6 cm): 3.50 cm LVESD (2.2 - 4.0 cm): 2.54 cm LVIVS thickness (0.6 - 1.2 cm): 1.46 cm LVPW thickness (0.5 - 1.0 cm): 1.07 cm e': 0.09 m/s E - e': 6.55 LVOT Max Gradient: 3.08 mm[Hg] LVOT Area (cm2): 0.88 m/s Peak Velocity (LVOT): 0.88 m/s LVOT Diameter 2.55 cm Left Atrium LA Volume Index (2D A2C): 14.84 ml/m2 Left Atrium Systolic Dimension: 2.94 cm Mitral Valve MV E to A Ratio: 0.98 Mitral Valve A-Wave Peak Velocity: 0.63 m/s Mitral Valve E-Wave Peak Velocity: 0.62 m/s Right Ventricle Aorta AO Root Diam: 3.05 cm Aortic Valve AoV Area (Peak Varinder): 4.77 cm2, 4.77 cm2 Peak Velocity(Antegrade Flow): 0.94 m/s Peak Gradient(Antegrade Flow): 3.50 mm[Hg] Tricuspid Valve Pulmonic Valve Peak Velocity: 0.71 m/s Peak Gradient: 2.02 mm[Hg] Right Atrium Dictated by: Luis Moyer M.D. on 05/17/2025 at 19:21 Approved by: Luis Moyer M.D. on 05/17/2025 at 19:39
--- NOTE | 2025-05-17 10:36 | SWNOTE1 ---
NELLA met with pt to discuss Suboxone and relapse concerns. Pt did admit to relapsing the past month. He voiced he was doing well and going apts in [place]. He voiced his work slowed down and he was got bored. He stated after he relapsed he had left over Suboxone and took that at home. He voiced he can't go back to doing drugs. SW and pt spoke about [facility] in [place]. SW to call [facility] to see what the process is to get him in to the clinic. SW also suggested he gets a primary care physician to follow up with as well. He is in agreement with this. SW let him know that Dr. Baxter in [place] is taking new patients and SW unsure about any other physicians accepting new patients. Pt is in agreement. NELLA updated nurse and case management.
--- NOTE | 2025-05-17 10:46 | SWNOTE1 ---
NELLA called [facility] and spoke to Natalie. She is going to call NELLA back once her computer is working to get pt set up with appointment.
--- NOTE | 2025-05-17 12:18 | CM.NOTE ---
Rounds made with Dr. Velazquez. Dr. Velazquez reviews findings with Mr. Cadena and answers all questions.
--- NOTE | 2025-05-17 13:17 | SWNOTE1 ---
NELLA called [facility] and spoke to Natalie, she is on her way back to office and will call NELLA back.
--- NOTE | 2025-05-17 13:32 | ECG_ITS ---
[facility] Test Date: 2025-05-17 Pat Name: RUTH ANSARI Department: Room: 2221 Gender: Male Philosophy Specialist: : 1980 Requested By: [id number] Order Number: [id number] Reading MD: CINDA HAN M.D. Measurements Intervals [facility] Rate: 91 P: 70 DC: 146 QRS: 81 QRSD: 86 T: 58 QT: 320 QTc: 369 Interpretive Statements 1100 Sinus rhythm 1570 with occasional ventricular premature complexes 9140 abnormal rhythm ECG Compared to ECG 05/15/2025 05:20:41 Ventricular premature complex(es) now present Electronically Signed On 05-17-2025 20:38:58 EDT by CINDA HAN M.D.
--- NOTE | 2025-05-17 13:33 | PM.PN ---
Progress Note: Subjective Subjective Interval history: Follow-up on the patient for the first time. Patient denies any chest or abdominal pain. No nausea or vomiting. No headaches, loss of conscious or seizure. Exam Narrative Exam Narrative: [pt is awake and alert. oriented to place, time and person HEENT: [place] conjunctiva and NL buccal mucosa Neck: Supple, no tenderness Endocrine: No Thyromegaly. Vascular: No JVD or carotid bruit. Lymphatic: No cervical lymphadenopathy. Chest: CTA no DTP. Heart RRR, no extra sound or murmur. Abd: Soft, no tenderness, no rebound and no rigidity. Increase abd girth therefore clinically I could not exclude the possibility of intra abd mass or organomegaly. LE: No cyanosis or clubbing, no varices or edema. Neuro: A A O. Nl speech, comprehension and attention. Nl and symetrical motor and tone examination through out. []] Constitutional Vital Signs, click to edit/add: Last Vital Signs Temp 98.1 F 05/17/25 11:56 Pulse 100 H 05/17/25 11:57 Resp 20 05/17/25 11:56 BP 132/89 05/17/25 11:56 Pulse Ox 96 05/17/25 11:56 O2 Del Method Room Air 05/17/25 11:56 Progress Note: Objective Labs Labs: Short CBC 05/17/25 Range/Units 05:34 WBC 5.7 (4.0-11.0) 10^3/uL Hgb 15.7 (14.0-18.0) g/dL Hct 45.8 (42.0-54.0) % Plt Count 119 L (150-450) 10^3/uL [facility] 05/17/25 05:34 Sodium 143 Potassium 4.0 Chloride 106 Carbon Dioxide 27.2 BUN 16.0 Creatinine 0.82 Glucose 97 Calcium 9.2 Progress Note: A&P Assessment and Plan (1) Elevated troponin: (2) Dizziness: (3) Endocarditis: (4) Heroin addiction: Assessment and Plan: Dizziness. Completely resolved. No other neurological signs or symptoms. Neurological exam is completely normal. Normal speech. Normal comprehension. Normal focus. Symmetrical motor and tone. CT head is negative for acute intracranial process but positive for hypoattenuation involving the vertebral artery. CTA of the head and neck are negative Elevated troponin. No chest pain. EKG does not show any ST elevation or depression History of endocarditis. Patient completed intravenous antibiotic course 3 years ago. No fever. Echocardiogram is pending rule out cardiomyopathy or significant valvular disease I started patient on aspirin small dose beta-yasmani Pending cardiac evaluation, recommendation and clearance to be discharged home. Patient may benefit from ischemic evaluation. Type of ischemic evaluation and the timing of that would be addressed by cardiology team. I will follow recommendations History of opiate dependence Patient is currently on Suboxone Counseling and education were provided for patient to continue to use Suboxone to reduce his risk relapsing. Chronic medical conditions not listed above, incidental findings seen on labs and imaging. These would need to be addressed. Could be addressed when time and condition are appropriate. Could be addressed in the outpatient setting by PCP collaboration with other needed outpatient providers.
[2025-05-17] MEDS: SULFUR HEXAFLUORIDE MICROSPHR 25 MG/5 ML VIAL IV (14:13)
--- NOTE | 2025-05-17 14:46 | SWNOTE1 ---
NELLA spoke to Natalie from [facility]. She was able to get pt scheudled for a telehealth visit, they will call pt's number that NELLA provided, and complete assessment. This will take place on 05/19/25 at 9:00am. After this assessment they will coordinate time for pt to see the doctor, which will likely take place prior to or on Saturday05/21/25. NELLA let nurse and pt know. NELLA provided pt with number for [facility].
[2025-05-17] MEDS: METOPROLOL SUCCINATE 25 MG TAB.ER.24H PO (15:01)
[2025-05-17] MEDS: ASPIRIN 81 MG TAB.CHEW PO (15:01)
--- NOTE | 2025-05-17 16:45 | P.CACN_ITS ---
History of Present Illness History of Present Illness Consult date: 05/17/25 Requesting physician: Andrew Velazquez Consult reason: chest pain (Elevated troponin, no chest pain ) Chief complaint: Dizziness Elevated Troponin Narrative: Tip Cadena is a 45 yo male with significant medical history of polysubstance IV drug abuse (heroin, cocaine) and history of endocarditis. He admits to using cocaine prior to this admission to come off the heroin. 05/17/2025 Pt is seen and evaluated at the bed side. He denies chest pain, SOB, palpitations, lightheadedness or dizziness, or lower extremity dizziness. He explains he never experienced chest but, rather dizziness which initially prompted his to seek care. Review of Systems ROS Status of ROS 10 or more systems reviewed and unremark able except as noted in history and below [facility] Medical History Heroin addiction ?F11.20 - Opioid dependence, uncomplicated (ICD-10) Endocarditis ?I38 - Endocarditis, valve unspecified (ICD-10) Social History (Updated 05/14/25 @ 23:35 by Berto Mcneill RN) Within the past year, how often did you have a drink containing alcohol: never Score interpretation: A score less than 4 is consistent with normal alcohol consumption. Smoking status: Current every day smoker Non-prescribed substance use: former substance user Previous occupational history: [employer] Known occupational exposures/hazards: No Highest level of school completed/degree received: GED or equivalent Are you now , , , , never or living with a partner: In a typical week, how many times do you talk on the telephone with family, friends, or neighbors: once per week How often do you attend yazdanism or restorationist services: never Do you belong to any clubs or organizations such as yazdanism groups unions, fraternal or athletic groups, or school groups: no Total score: 1 Score interpretation: A score of less than or equal to 1 indicates the most socially isolated. Little interest or pleasure in doing things: not at all Feeling down, depressed, or hopeless: not at all Meds Home Medications and Allergies Home Medications ?Medication ?Instructions ?Recorded ?Confirmed ?Type albuterol sulfate 90 mcg/actuation 2 puff inhalation Q 4H PRN 05/14/25 05/14/25 History aerosol inhaler shortness of breath or wheez ing iiluixewyxtjmxv-heserchwhngosud-UF 5 ml PO Q4H PRN sin us symptoms 05/14/25 05/14/25 History 2 mg-30 mg-10 mg/5 mL oral syrup buprenorphine 8 mg-naloxone 2 mg 1 film sublingual ELIZABETH LY 05/14/25 05/14/25 History sublingual film (Suboxone) aspirin 81 mg chewable tablet 81 mg PO QD #30 tabs 06/04 Rx Allergies Allergy/AdvReac Type Severity Reaction Status Date / Time Penicillins Allergy Unknown Unknown Verified 05/06/25 21:02 vancomycin Allergy Redness of Verified 05/06/25 21:02 Skin Exam Constitutional Vital Signs, click to edit/add: Last Vital Signs Temp 98.1 F 05/17/25 11:56 Pulse 99 H 05/17/25 13:56 Resp 20 05/17/25 11:56 BP 132/89 05/17/25 11:56 Pulse Ox 96 05/17/25 11:56 O2 Del Method Room Air 05/17/25 11:56 Common normals: no apparent distress and oriented x3 General appearance: cooperative and comfortable Cardio Common normals: no JVD, regular rate, regular rhythm, no murmurs and peripheral pulses 2+ throughout Rate: regular rate Rhythm: regular rhythm Heart sounds: S1 normal and S2 normal Peripheral pulses: pulses 2+ throughout, popliteal pulses present, posterior tibial pulses present and dorsalis pedis pulses present Results Labs and Meds Lab results: CBC 05/17/25 Range/Units 05:34 WBC 5.7 (4.0-11.0) 10^3/uL RBC 5.18 (4.70-6.10) 10^6/uL Hgb 15.7 (14.0-18.0) g/dL Hct 45.8 (42.0-54.0) % Plt Count 119 L (150-450) 10^3/uL Neut # (Auto) 3.1 (1.4-6.5) 10^3/uL Lymph # (Auto) 1.5 (1.2-3.8) 10^3/uL [place] # (Auto) 0.6 (0.3-0.8) 10^3/uL Eos # (Auto) 0.5 (0.0-0.7) 10^3/uL Baso # (Auto) 0.1 (0.0-0.1) 10^3/uL Comprehensive Metabolic Panel 05/17/25 Range/Units 05:34 Sodium 143 (136-145) mmol/L Potassium 4.0 (3.5-5.1) mmol/L Chloride 106 (98-107) mmol/L Carbon Dioxide 27.2 (21.0-32.0) mmol/L BUN 16.0 (7.0-18.0) mg/dL Creatinine 0.82 (0.70-1.30) mg/dL Glucose 97 (74-106) mg/dL Calcium 9.2 (8.5-10.1) mg/dL Assessment and Plan Assessment and Plan (1) Elevated troponin: Assessment and Plan: Denies chest pain, downtrending (2) Dizziness: (3) Endocarditis: Assessment and Plan: No evidence of vegetation on recent TTE. LVEF look visually preserved (4) Heroin addiction: Assessment and Plan: Relapsed last week, admits to using cocaine to come off the heroin. Plan #Type II [place] / demand ischemia #Elevated troponin Denies chest pain Downtrending troponin last 188 with peak 239 without chest pain, ECG changes, or echo abnormalities. Likely Type II myocardial injury in the setting of recent URI, IVDU relapse, and cocaine use prior to admission. --No further troponin check needed --No ischemic workup indicated #Dizziness Denies syncope or presyncope Resolved #Endocarditis Hx of endocarditis Echo personally reviewed, no evidence of vegetations on TTE. Pt is afebrile, no leukocytosis. #Polysubstance abuse Heroin and cocaine use prior to admission. Has been using since 29 y.o. Relapsed 1 week ago. Plan overview: * Okay to d/c from cardiology standpoint * Can see cardiology in outpatient setting as follow-up Tyson Simpson, [facility] Cardiovascular [facility]
--- NOTE | 2025-05-18 08:03 | P.DS_ITS ---
DS: Providers Provider Date of admission: 05/15/25 12:32 Primary care physician: Non-Staff Physician, Consults: 05/14/25 18:25 Consult to Cardiology Routine Reason for consultation: Elevated trop 05/15/25 09:39 Consult to Cardiology Routine Reason for consultation: troponin elevation DS: Diagnosis Discharge Diagnosis (1) Elevated troponin: (2) Dizziness: (3) Polysubstance abuse: Plan As listed above and others that are not listed DS: Summary Hospital Course Hospital Course: Mr. Cadena is a 45-year-old gentleman who came in with dizziness Dizziness. Completely resolved. No other neurological signs or symptoms. Neurological exam is completely normal. Normal speech. Normal comprehension. Normal focus. Symmetrical motor and tone. CT head is negative for acute intracranial process but positive for hypoattenuation involving the vertebral artery. CTA of the head and neck are negative Elevated troponin. No chest pain. EKG does not show any ST elevation or depression History of endocarditis. Patient completed intravenous antibiotic course 3 years ago. No fever. Echocardiogram is pending rule out cardiomyopathy or significant valvular disease. This came back unremarkable I started patient on aspirin small dose beta-yasmani Patient subsequently admitted that he used cocaine a few days prior to admission. That could explain his elevated troponin suggestive of type II [place] secondary to cocaine use Patient was seen by cardiology team. Please refer to cardiology note for details. Cardiology team did not recommend any further in or outpatient cardiac investigation or treatment. Cardiology team cleared patient for discharge. History of opiate dependence, cocaine use a few days prior to admission Patient is currently on Suboxone Counseling and education were provided for patient to continue to use Suboxone to reduce his risk relapsing. Chronic medical conditions not listed above, incidental findings seen on labs and imaging. These would need to be addressed. Could be addressed when time and condition are appropriate. Could be addressed in the outpatient setting by PCP collaboration with other needed outpatient providers. Patient has few medical issues as listed above and others that are not listed. All appear to be stable. I do not have any clear or strong clinical justificati on to extend inpatient hospitalization. Patient however will require close and frequent monitoring as well as additional work-up, investigation and therapeutic intervention that could take place from this point on post discharge. That is to prevent relapse, decompensation, rehospitalization and other medical implications. I instructed patient to ask her primary care doctor to obtain [facility] record entirely to address abnormalities seen on labs and imaging that I have and have not addressed during this hospitalization, follow-up on pending blood work, imaging and pathology is if available and to follow-up on needed medical care in the outpatient setting. Time Spent with Patient Time attestation: Total time spent providing and/or coordinating discharge services: Exam Constitutional Vital Signs, click to edit/add: Last Vital Signs Temp 98.1 F 05/17/25 11:56 Pulse 99 H 05/17/25 13:56 Resp 20 05/17/25 11:56 BP 132/89 05/17/25 11:56 Pulse Ox 96 05/17/25 11:56 O2 Del Method Room Air 05/17/25 11:56 DS: Data Data Completed and Pending Labs on day of discharge: Labs from last 24 hours 05/17/25 15:30 Troponin I High Sens 188.7 H* Preliminary micro results at discharge 05/14/25 19:03 Blood Culture Result 2 - Preliminary Blood - Right Antecubital NO GROWTH AT 36-48 HOURS. FINAL TO FOLLOW. 05/14/25 19:00 Blood Culture Result 1 - Preliminary Blood - Left Antecubital NO GROWTH AT 36-48 HOURS. FINAL TO FOLLOW. Discharge Plan Discharge Disposition: Home, Self-Care Condition: Fair Health Concerns: Please avoid using any drugs other than what is prescribed by a medical provider. Please follow up with the heart doctor. 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 They will call cell phone. After this visit is completed they will schedule appointment with doctor from [employer]. Phone number for [employer] is [phone]. Forms: Portal Instructions Follow Up Appointments: New patient appointment with Dr. Baxter on 05/26/25 at 9:30am. Please bring insurance card and ID. [address] [facility]. [phone]. Follow up appt [facility] cardiology, SatMay 28, 2025 at 2:40 pm, [place] Office [address] [facility], Discharge Date/Time: 05/17/25 16:40
--- NOTE | 2025-05-18 11:21 | CM.DCFOLLOWU ---
Person spoke with:patient How are you feeling?well How is your pain?none Did you understand your discharge instructions?yes Do you have any questions about your discharge instructions?no Were you given any prescriptions at discharge?no, spoke to pt's nurse from yesterday and pt was informed to get it OTC Were you able to get your prescriptions filled?n/a Do you understand how to take your medications as ordered?yes Do you have any questions about your follow up appointment and do you plan to keep your follow up appointment?no questions, will follow up Is there anything else that you would like to discuss?no Questions/Comments/Concerns/Other:none
== END 2025-05-17 16:40 | disposition home or self-care (01) | DRG 816 ==
LOC: ER 19:24 → MS 22:27
PROVIDERS: Emergency Medicine; Internal Medicine Cardiovascular Disease; Admitting Provider Student in an Organized Health Care Education/Training Program; Emergency Provider Internal Medicine; Visit Provider Internal Medicine
DX: T40.5X1A Poisoning by cocaine, accidental (unintentional), initial encounter (principal); I21.A1 Myocardial infarction type 2; F11.20 Opioid dependence, uncomplicated; F17.200 Nicotine dependence, unspecified, uncomplicated; R42 Dizziness and giddiness; Z86.79 Personal history of other diseases of the circulatory system; Z79.899 Other long term (current) drug therapy; Z88.0 Allergy status to penicillin; Z88.1 Allergy status to other antibiotic agents
CPT/HCPCS: 36415; 70450; 70496; 70498; 71045; 80048; 80053; 80061; 80307; 81001; 84484; 85025; 85027; 86658; 87040; 87804; 87811; 93005; 94761; 96360; 96361; 99285; C8929; G0378; J1650; Q9950; Q9967

== ENCOUNTER 2025-06-17 14:06 | Outpatient (OUT) | payer OTHER, SELFPAY ==
[2025-06-17 14:37] LABS: Hematocrit 39.6 % (42.0-54.0); Hemoglobin 13.9 g/dL (14.0-18.0); Immature Granulocytes Abs Auto 0.01 10^3/uL (0.00-0.03); Immature Granulocytes Pct Auto 0.2 % (0.0-0.5); Lymphocytes Absolute Auto 1.1 10^3/uL (1.2-3.8); Mean Corpuscular HGB Conc 35.1 g/dL (29.9-35.2); Mean Corpuscular Hemoglobin 31.3 pg (25.9-34.0); Mean Corpuscular Volume 89.2 fL (80.0-94.0); Platelet Count 165 10^3/uL (150-450); Red Blood Count 4.44 10^6/uL (4.70-6.10); White Blood Count 5.0 10^3/uL (4.0-11.0)
[2025-06-17 17:00] LABS: Alanine Aminotransferase 190 U/L (16-63); Albumin Globulin Ratio 0.9; Albumin Level 3.4 g/dL (3.4-5.0); Alkaline Phosphatase 91 U/L (46-116); Anion Gap 13.9; Aspartate Amino Transferase 110 U/L (15-37); Blood Urea Nitrogen 13.0 mg/dL (7.0-18.0); Calcium 9.3 mg/dL (8.5-10.1); Carbon Dioxide 28.6 mmol/L (21.0-32.0); Chloride 106 mmol/L (98-107); Cholesterol 151 mg/dL (<=200); Estimated GFR (African America >60 (>=60 mL/min/1.73m^2); Estimated GFR (Non-African Ame >60 (>=60 mL/min/1.73m^2); Free T3 3.42 pg/mL (2.18-3.98); Globulin 4.0 g/dL; Glucose 90 mg/dL (74-106); HDL Cholesterol 45 mg/dL (40-60); NT Pro B Type Natriuretic Pept 64.0 pg/mL (<=450.0); Potassium 4.5 mmol/L (3.5-5.1); Sodium 144 mmol/L (136-145); Thyroid Stimulating Hormone 1.435 uIU/mL (0.358-3.740); Total Protein 7.4 g/dL (6.4-8.2); Triglycerides 54 mg/dL (<=150); VLDL CHOLESTEROL 10.8 mg/dL
== END 2025-06-17 14:07 | disposition home or self-care (01) ==
PROVIDERS: PCP Family Medicine; Visit Provider Family Medicine
DX: Z00.00 Encounter for general adult medical examination without abnormal findings (principal); Z12.5 Encounter for screening for malignant neoplasm of prostate
CPT/HCPCS: 36415; 80053; 80061; 83036; 83880; 84436; 84443; 84481; 84484; 85025; G0103

== ENCOUNTER 2025-07-01 10:38 | Outpatient (OUT) | payer OTHER, SELFPAY ==
--- OUTSIDE RECORDS SUMMARY | 2025-07-01 10:42 | XMS_ITS | Clinical Summary ---
Author Organization [facility] Address [address] [place] [address] Care Team Providers Care Survey Supervisor Name Role Phone Brody Baxter MD Primary Care Provider [phone] Allergies Active Allergy Reactions Criticality Noted Date Comments Penicillins Anaphylaxis High 03/16/2016 Vancomycin 01/22/2022 Other reaction(s): Other (See Comments) Fever and hives chest - despite very slow infusion Medications Ventolin HFA 90 mcg/actuation inhaler INHALE 2 PUFFS BY MOUTH 4 TIMES DAILY 08/09/2022 Active amoxicillin (Amoxil) 875 mg tablet Take 875 mg by mouth in the morning and at bedtime. 11/12/2022 Active benzonatate (Tessalon) 100 mg capsule Take 100-200 mg by mouth. 09/28/2022 Active benzonatate (Tessalon) 100 mg capsule 09/28/2022 Active Sublocade 100 mg/0.5 mL injection 10/29/2022 Active Sublocade 300 mg/1.5 mL injection 07/25/2022 Active buprenorphine-n aloxone (Suboxone) 8-2 mg SL film 06/28/2022 Active buprenorphine-n aloxone (Suboxone) 8-2 mg SL film 06/28/2022 Active dalbavancin (Dalvance) 500 mg injection Infuse 1,000 mg into a venous catheter. 06/19/2022 Active fluconazole (Diflucan) 100 mg tablet 07/02/2022 Active ibuprofen 800 mg tablet Take 800 mg by mouth. 09/28/2022 Active naloxone (Narcan) 4 mg/0.1 mL nasal spray 07/11/2022 Active predniSONE (Deltasone) 20 mg tablet Take 20 mg by mouth in the morning and at bedtime. 08/08/2022 Active aspirin 81 mg EC tablet Take 81 mg by mouth in the morning. Active Active Problems Problem Noted Date Diagnosed Date Back pain with left-sided sciatica 05/28/2025 Acute hematogenous osteomyelitis of left ankle 0 04/15/2023 Tenosynovitis of left ankle 04/15/2023 Acute osteomyelitis of left calcaneus 04/15/2023 Staphylococcal arthritis of left ankle Acute septic pulmonary embolism without acute co r pulmonale 06/20/2022 Elevated procalcitonin 06/20/2022 SIRS (systemic inflammatory response syndrome) 0 06/20/2022 Achilles tendinitis of left lower extremity 04/12 Cellulitis of left lower extremity 05/06/2022 IVDU (intravenous drug user) 05/06/2022 Opiate withdrawal 01/28/2022 Septic bursitis 01/24/2022 Sepsis due to Arielle specie s without acute organ dysfunction 01/23/2022 Sinus tachycardia 01/23/2022 Hyperglycemia 01/22/2022 Sepsis 01/20/2022 Endocarditis 12/30/2021 Endocarditis of prosthetic tricuspid valve 12/19 Hyperkalemia 12/19/2021 Moderate tricuspid regurgitation 12/19/2021 Staphylococcal arthritis of right knee 2 Subacute right-sided infective endocarditis 03/2022 Acute hypokalemia 12/14/2021 Acute respiratory failure with hypoxia 2 Bloody diarrhea 12/14/2021 Moderate protein-calorie malnutrition 12/14/2021 MRSA bacteremia 12/14/2021 Normocytic normochromic anemia 12/14/2021 Septic embolism 12/11/2021 Abscess of arm, left 01/28/2021 Elevated C-reactive protein (CRP) 01/28/2021 Chronic hepatitis C without hepatic coma 021 Hepatitis C virus infection without hepatic coma 01/28/2021 Heroin abuse 01/28/2021 Lower extremity edema 01/28/2021 Encounters Date Type Department Care Team Description 05/28/2025 2:40 PM EDT Office Visit [facility] [place] [address] [place] [address] Tyson Simpson CNP History of endocarditis (Primary Dx); Polysubstance abuse (CMS/HCC) from Last 3 Months Family History Medical History Relation Name Comments Transient ischemic attack Maternal Grandfather Heart attack Paternal Grandfather Relation Name Status Comments Maternal Grandfather Paternal Grandfather Social History Tobacco Use Types Packs/Day Years Used Date Smoking Tobacco: Former Cigarettes Q uit: 2020 Smokeless Tobacco: Current Tobacco Cessation:Ready to Q uit: Not Asked; Counseling Given: Not Answered Comments:Vapes daily Alcohol Use Standard Drinks/Week Comments Never 0 (1 standard drink = 0.6 oz pur e alcohol) Humiliation, Afraid, Rape, and Kick questionnair e Answer Date Recorded Within the last year, have y ou been afraid of your partner or ex-partner? No 04/16/2023 Within the last year, have y ou been humiliated or emotionally abused in other ways by your partner or ex-partner? No Within the last year, have y ou been kicked, hit, slapped, or otherwise physically hurt by your partner or ex-partner? No 04/16/2023 Within the last year, have y ou been raped or forced to have any kind of sexual activity by your partner or ex-partner? No 04/16/2023 PHQ-2 Answer Date Recorded Patient Health Questionnaire-2 Score 0 04/16/2023 [place] [facility] & [facility] Answer Date Rec orded Fear of Current or Ex-Partner Not on file Emotionally Abused Not on file 04/18/2024 Physically Abused Not on file 04/18/2024 Sexually Abused Not on file 04/18/2024 Physically or Sexually Abused Not on file Sex and Gender Information Value Date Recorded Sex Assigned at Male 05/19/2025 1:42 PM EDT Legal Sex Male 9:31 PM EDT Gender Identity Male 05/19/2025 1:42 PM EDT Sexual Orientation Heterosexual or Straight 07/2025 1:42 PM EDT Last Filed Vital Signs Vital Sign Reading Time Taken Comments Blood Pressure 124/86 05/28/2025 2:50 PM EDT Pulse 98 05/28/2025 2:50 PM EDT Temperature 35.8 C (96.5 F) 05/09/2023 1:06 PM EDT Respiratory Rate 17 05/09/2023 1:06 PM EDT Oxygen Saturation 100% 05/28/2025 2:50 PM EDT Inhaled Oxygen Concentration - - Weight 76.2 kg (168 lb) 05/28/2025 2:50 PM EDT Height 185.4 cm (6' 1 ) 05/28/2025 2:50 PM EDT Body Mass Index 22.16 05/28/2025 2:50 PM EDT Plan of Treatment Health Maintenance Due Date Last Done Comments Depression Screening 1994 Varicella Vaccines (1 of 2 - 13+ 2-dose series) 1995 Hepatitis B Vaccines (1 of 3 - 19+ 3-dose series) 2001 06/03/2023, 04/16/2023, 04/16/2023 Pneumococcal Vaccine: Pediatrics (0 to 5 Years) and At-Risk Patients (6 to 64 Years) (1 of 2 - PCV) 2001 Adult Tetanus 2004 COVID-19 Vaccine (1 - 2023-2 5 season) 2024 Influenza Vaccine (#1) 2025 Zoster Vaccines (1 of 2) 2032 HIB Vaccines Aged Out No longer eligi ble based on patient's age to complete this topic HPV Vaccines Aged Out No longer eligi ble based on patient's age to complete this topic IPV Vaccines Aged Out No longer eligi ble based on patient's age to complete this topic Meningococcal B Vaccine Aged Out No l onger eligible based on patient's age to complete this topic Meningococcal Vaccine Aged Out No nevin diane eligible based on patient's age to complete this topic Rotavirus Vaccines Aged Out No longer eligible based on patient's age to complete this topic Insurance [employer] Care Teams Survey Supervisor Relationship Specialty Start Date End Date Brody Baxter MD [address] [facility] [place] [address] PCP - General Family Medicine 05/28/25
--- NOTE | 2025-07-01 10:43 | US_ITS ---
The [facility] [id number] Patient Name: RUTH ANSARI MRN: [id number] date: 1980 Sex: M Assigned Patient Location: US Current Patient Location: US Accession/Order Number: [id number] Exam Date: 07/01/2025 12:07 Report Date: 07/01/2025 12:08 At the request of: CEFERINO MCCORMACK MD Procedure: US right upper quadrant Ultrasound of the right upper quadrant INDICATION: Elevated liver enzymes COMPARISON: None FINDINGS: Liver is unremarkable size and echogenicity. Normal hepatopedal flow. Gallbladder is unremarkable. Wall thickness 1.4 mm. Common bile duct 1.4 mm. Pancreas grossly unremarkable as visualized. Right kidney is without hydronephrosis measuring 8.9 cm respectively. US/US right upper quadrant IMPRESSION: Unremarkable ultrasound upper quadrant. Impression dictated by: Jorge Sultana M.D. 07/01/2025 12:08 PM Dictation Location: [place] [address] Electronically authenticated by: [id number] Date: 07/01/2025 12:08
--- OUTSIDE RECORDS SUMMARY | 2025-07-01 10:46 | XMS_ITS | CCD ---
Author Organization [facility] Care Team Providers Care Tractor Operator Battery Name Role Phone Unavailable Primary Care Provider Unavailjuan REBOLLEDO, DR EMY Plata Attending Unavailable REYNOLD, DR MIKY Hernández Consulting Unavailable AMAURY, DR EMY Plata Admitting Unavailable REQUEST, DR ESPINOZA LISTED Primary Care Unavaila ricky REBOLLEDO, DR EMY Plata Procedure Practitioner Mary MEDEIROS, DR JOELLE Lawton Consulting Unavailable AMAURY, DR EMY Plata Consulting Unavailable AHSAMUEL BALDERAS Consulting Unavailable JOSE RAFAEL ALONSO Consulting Unavailable ETHAN ORDONEZ Consulting Unavailable Unavailable Primary Care Provider UnavailMALLIKA Hadley Attending Unavailable NATO SHAFFER Attending Unavailable HUSAM SMITH Attending Unavailable JESSICA BARROW Attending Unavailable FABRICIO STORM Referring Unavailable FABRICIO STORM Referring Unavailable ELI DUGAN Attending Unavailable Unavailable Primary Care Provider UnavailFABRICIO Armstrong Attending STU Guevara Attending Unavailable SILVER BABCOCK Attending Unavailable Allergies Allergy Classification Reported Allergen(s) Allergy Type Date of Onset Reaction(s) Facility Penicillins (antibiotic) (1 source) Penicillins Drug Allergy 6 Anaphylaxis [facility] (17 sources) Penicillins; Translations: [PENICILLINS] Propensity to adverse reactions to drug 6 Anaphylaxis [facility] [place], [place] (1 source) Penicillin Drug Allergy 2 [facility] [place] [facility] (12 sources) Vancomycin; Translations: [VANCOMYCIN] Drug Allergy 2 Other (See Comments) [facility] Work Phone (unformatted): [phone] (1 source) Penicillins Propensity to adverse reactions to drug 6 Anaphylaxis [facility] [employer] Phone: Medications Current Medications Medication Drug Class(es) [...] 1 tablet, Oral, DAILY, First dose on Sat01/21/22 at 0900 iopamidol (ISOVUE-370) 76 % injection [...] 100 mL IVPB (mini-bag) polyethylene glycol 3350 [id number] mg powder for oral solution (2 sources) [...] valve disease, unspecified] Onset: 12-19-2021 Chronic Hepatitis (3 sources) Chronic hepatitis C; Translations: [Chronic viral [...] [Moderate protein-calorie malnutrition] Onset: 12-14-2021 Chronic Other circulatory disease (2 sources) Personal history of other diseases of the circulatory system; Translations: [Personal history of other diseases of the circulatory system] Onset: 05-28-2025 Episodic Other connective tissue disease (1 source) Swelling [...] 01-22-2022 Episodic Disorders of teeth and jaw (1 source) Other specified disorders of teeth and supporting structures; Translations: [Other specified disorders of teeth and supporting structures] Onset: 10-18-2023 Episodic Fluid and electrolyte disorders (20 sources) Hyperkalemia; Translations: [Hyperkalemia] Onset: 12-14-2021 Episodic Hepatitis (16 sources) Viral hepatitis C; Translations: [Unspecified viral hepatitis C without hepatic coma] Onset: 01-28-2021 12-20-2021 Episodic Other connective tissue disease (12 sources) [...] conditions (not mental disorders or infectious disease) (10 sources) Hormone level - finding; Translations: [Other [...] Test Name Value Interpretation Reference Range Facility Office Visiton 05-28-2025 Follow-up visit [id number] Tip Ansari 1980 M Date Provider Department Center 05/28/2025 [id number] BABCOCK [facility] Family History Problem Relation Age of Onset Transient ischemic attack Maternal Grandfather Heart attack Paternal Grandfather Family Status - Relation Status Age at Maternal Grandfather Paternal Grandfather Level of Service:93671 [place] OFFICE/OUTPATIENT ESTABLISHED LOW MDM 20 MIN Normal [facility] COVID-19 & Influenza [place] 01-30-2024 FLUAV RNA CHARO+probe Ql (Resp) Detected Abnormal Not Detected [facility] FLUBV RNA CHARO+probe Ql (Resp) Not detected Not Detected [facility] Interpretation and review of laboratory results Abnormal [facility] SARS-CoV-2 (COVID-19) RNA CHARO+probe Ql (Resp) Not detected Not Detected [facility] Comment on above: Testing was performed using [...] and epidemiological information. Fact sheet for Patients: https://www.fda.gov/media/251527/download Fact sheet for Healthcare Providers: https://www.fda.gov/media/176964/download Results reported to the appropriate Health Department Source .NASOPHARYNGEAL SWAB [facility] Specimen Description .NASOPHARYNGEAL SWAB [facility] Rapid Strep Screenon 024 Specimen source Nom (Unsp spec) .THROAT SWAB [facility] Strep A, Molecular Negative NEGATIVE [facility] SARS-CoV-2 + Flu A/[facility] 01-29 Influenza A, RT-PCR Detected Abnormal [facility] Comment on above: Performed By: #### C VFLU #### [facility] [address] [place] [address]. [place], [place] [id number] Forensic Specialist: Edward Paz MD Influenza B, RT-PCR Not detected Normal [facility] Comment on above: Performed By: #### C VFLU #### [facility] [address] [place] [address]. [place], [place] [address] Forensic Specialist: Edward Paz MD SARS-CoV-2 (COVID-19) RNA CHARO+probe Ql (Unsp spec) Not detected Normal [facility] Comment on above: Result Comment: Testing [...] and epidemiological information. Fact sheet for Patients: https://www.fda.gov/media/980094/download Fact sheet for Healthcare Providers: https://www.fda.gov/media/653286/download Results reported to the appropriate Health Department Performed By: #### C VFLU #### [facility] [address] [place] [address] Forensic Specialist: Edward Paz MD Source .NASOPHARYNGEAL SWAB Normal [place] Comment on above: Performed By: #### C VFLU #### [facility] [address] [place] [address] Forensic Specialist: Edward Paz MD Strep Group A, [place]on 01-29 Strep A, Molecular Negative Normal [facility] Comment on above: Performed By: #### R SAB #### [facility] [address] [place] [address] Forensic Specialist: Edward Paz MD Source .THROAT SWAB Normal [facility] Comment on above: Performed By: #### R SAB #### [facility] [address] [address] Forensic Specialist: Edward Paz MD XR CHEST (2 VW)on [...] Rip Diaz MD 11/12/23 Final result Normal [facility] Basic Metabolic Panel w/ Ref rebecca to MGon 06-21-2022 Anion gap [Moles/Vol] 10 mmol/L 9 - 17 mmol/L [facility] Calcium [Mass/Vol] 9.2 mg/dL 8.6 - 10. 4 mg/dL [facility] Chloride [Moles/Vol] 104 mmol/L 98 - 10 7 mmol/L [facility] CO2 [Moles/Vol] 24 mmol/L 20 - 31 mmol/L [facility] Creatinine [Mass/Vol] 0.68 mg/dL Low 0.7 - 1.2 mg/dL [facility] GFR >60 60 - PI NF mL/min [facility] GFR Non- >60 60 - PINF mL/min [facility] GFR/1.73 sq M.predicted MDRD (S/P/Bld) [Vol rate/Area] [facility] Comment on above: Average GFR for 40-4 9 years old: 99 mL/min/1.73sq m Chronic Kidney Disease: <60 mL/min/1.73sq m Kidney failure: <15 mL/min/1.73sq m eGFR calculated using average adult body mass. Additional eGFR calculator available at: http://www.Int[employer]ix/multiple_crcl_2011.htm Glucose [Mass/Vol] 85 mg/dL 70 - 99 mg/dL [facility] Interpretation and review of laboratory results Abnormal [facility] Potassium [Moles/Vol] 3.9 mmol/L 3.7 - 5.3 mmol/L [facility] Sodium [Moles/Vol] 138 mmol/L 135 - 144 mmol/L [facility] Urea nitrogen (BldV) [Mass/Vol] 13 mg/dL 6 - 20 mg/dL [facility] CBCon 06-21-2022 Hematocrit (Bld) [Volume fraction] 35.7 % Low 40.7 - 50.3 % [facility] Hemoglobin (Bld) [Mass/Vol] 12.3 g/dL Low 13 - 17 g/dL [facility] Interpretation and review of laboratory results Abnormal [facility] MCH (RBC) [Entitic mass] 28.7 pg 25. 2 - 33.5 pg [facility] MCHC (RBC) [Mass/Vol] 34.5 g/dL 28.4 - 34.8 g/dL [facility] MCV (RBC) [Entitic vol] 83.4 fL 82.6 - 102.9 fL [facility] NRBC Automated 0.0 0.0 per 100 WBC [facility] Platelet distribution width (Bld) [Ratio] 17.9 % High 11.8 - 14.4 % [facility] Platelet mean volume (Bld) [Entitic vol] 9.1 fL 8.1 - 13.5 fL [facility] Platelets (Bld) [#/Vol] 174 10*3/uL [facility] RBC (Bld) [#/Vol] 4.28 10*6/uL 4.21 - 5.7 7 m/uL [facility] WBC (Bld) [#/Vol] 8.6 10*3/uL [facility] Hepatic Function Panelon Albumin [Mass/Vol] 3.2 g/dL Low 3.5 - 5.2 g/dL [facility] Albumin/Globulin [Mass ratio] 0.7 {ratio} Low 1 - 2.5 [facility] ALP (Bld) [Catalytic activity/Vol] 83 U/L 40 - 129 U/L [facility] ALT [Catalytic activity/Vol] 28 U/L 5 - 41 U/L [facility] AST [Catalytic activity/Vol] 20 U/L NINF - 40 U/L [facility] Bilirubin [Mass/Vol] 0.45 mg/dL 0.3 - 1 .2 mg/dL [facility] Bilirubin, Indirect 0.35 mg/dL 0 - 1 mg/dL [facility] Bilirubin.indirect [Mass/Vol] 0.10 mg/dL NINF - 0.31 mg/dL [facility] Free PSA/Total PSA [Mass fraction] 7.5 g/dL 6.4 - 8.3 g/dL [facility] Interpretation and review of laboratory results Abnormal [facility] Basic Metabolic Panel w/ Ref rebecca to MGon 06-20-2022 Anion gap [Moles/Vol] 8 mmol/L Low 9 - 17 mmol/L [facility] Calcium [Mass/Vol] 9.1 mg/dL 8.6 - 10. 4 mg/dL [facility] Chloride [Moles/Vol] 106 mmol/L 98 - 10 7 mmol/L [facility] CO2 [Moles/Vol] 27 mmol/L 20 - 31 mmol/L [facility] Creatinine [Mass/Vol] 0.75 mg/dL 0.7 - 1.2 mg/dL [facility] GFR >60 60 - PI NF mL/min [facility] GFR Non- >60 60 - PINF mL/min [facility] GFR/1.73 sq M.predicted MDRD (S/P/Bld) [Vol rate/Area] [facility] Comment on above: Average GFR for 40-4 9 years old: 99 mL/min/1.73sq m Chronic Kidney Disease: <60 mL/min/1.73sq m Kidney failure: <15 mL/min/1.73sq m eGFR calculated using average adult body mass. Additional eGFR calculator available at: http://www.Intematix/multiple_crcl_2012.htm Glucose [Mass/Vol] 99 mg/dL 70 - 99 mg/dL [facility] Interpretation and review of laboratory results Abnormal [facility] Potassium [Moles/Vol] 4.1 mmol/L 3.7 - 5.3 mmol/L [facility] Sodium [Moles/Vol] 141 mmol/L 135 - 144 mmol/L [facility] Urea nitrogen (BldV) [Mass/Vol] 13 mg/dL 6 - 20 mg/dL [facility] CBCon 06-20-2022 Hematocrit (Bld) [Volume fraction] 35.2 % Low 40.7 - 50.3 % [facility] Hemoglobin (Bld) [Mass/Vol] 11.8 g/dL Low 13 - 17 g/dL [facility] Interpretation and review of laboratory results Abnormal [facility] MCH (RBC) [Entitic mass] 28.0 pg 25. 2 - 33.5 pg [facility] MCHC (RBC) [Mass/Vol] 33.5 g/dL 28.4 - 34.8 g/dL [facility] MCV (RBC) [Entitic vol] 83.4 fL 82.6 - 102.9 fL [facility] NRBC Automated 0.0 0.0 per 100 WBC [facility] Platelet distribution width (Bld) [Ratio] 18.0 % High 11.8 - 14.4 % [facility] Platelet mean volume (Bld) [Entitic vol] 8.9 fL 8.1 - 13.5 fL [facility] Platelets (Bld) [#/Vol] 187 10*3/uL [facility] RBC (Bld) [#/Vol] 4.22 10*6/uL 4.21 - 5.7 7 m/uL [facility] WBC (Bld) [#/Vol] 8.9 10*3/uL [facility] Culture, Blood 1on 2 Bacteria identified Cx Nom (Unsp spec) NO GROWTH 5 DAYS [facility] Special Requests RT FOREARM 3ML [facility] Specimen Description .BLOOD [facility] Culture, Blood 2on 2 Bacteria identified Cx Nom (Unsp spec) NO GROWTH 5 DAYS [facility] Special Requests L AC 10ML [facility] Specimen Description .BLOOD [facility] XR ABDOMEN (KUB) (SINGLE AP VIEW)on 06-20-2022 Moderate stool burde n throughout the colon. Nonobstructive bowel gas pattern. [facility] EXAMINATION: ONE SUPINE XRAY VIEW(S) OF THE ABDOMEN 06/20/2022 8:37 am COMPARISON: None. HISTORY: ORDERING SYSTEM PROVIDED HISTORY: abd paindistension TECHNOLOGIST PROVIDED HISTORY: abd paindistension FINDINGS: Moderate stool burden throughout the colon. Nonobstructive bowel gas pattern. No renal calculi identified. No acute osseous abnormality appreciated. [facility] Mckayla Baltazar MD - 06/20/2022 EXAMINATION: ONE SUPINE XRAY VIEW(S) OF THE ABDOMEN 06/20/2022 8:37 am COMPARISON: None. HISTORY: ORDERING SYSTEM PROVIDED HISTORY: abd paindistension TECHNOLOGIST PROVIDED HISTORY: abd paindistension FINDINGS: Moderate stool burden throughout the colon. Nonobstructive bowel gas pattern. No renal calculi identified. No acute osseous abnormality appreciated. IMPRESSION: Moderate stool burden throughout the colon. Nonobstructive bowel gas pattern. [employer] [facility] Work Phone: Radiology Study observation (narrative) [employer] Phone: XR ABDOMEN (KUB) (SINGLE AP VIEW)Ordered By: Mckayla Baltazar on 06-20-2022 [employer] Phone: No Panel Informationon 06-19 [facility] Renal Function Panelon 06-19 Albumin [Mass/Vol] 3.3 g/dL Low 3.5 - 5.2 g/dL [facility] Anion gap [Moles/Vol] 11 mmol/L 9 - 17 mmol/L [facility] Calcium [Mass/Vol] 9.0 mg/dL 8.6 - 10. 4 mg/dL [facility] Chloride [Moles/Vol] 105 mmol/L 98 - 10 7 mmol/L [facility] CO2 [Moles/Vol] 25 mmol/L 20 - 31 mmol/L [facility] Creatinine [Mass/Vol] 0.7 mg/dL 0.7 - 1.2 mg/dL [facility] GFR >60 60 - PI NF mL/min [facility] GFR Non- >60 60 - PINF mL/min [facility] GFR/1.73 sq M.predicted MDRD (S/P/Bld) [Vol rate/Area] [facility] Comment on above: Average GFR for 40-4 9 years old: 99 mL/min/1.73sq m Chronic Kidney Disease: <60 mL/min/1.73sq m Kidney failure: <15 mL/min/1.73sq m eGFR calculated using average adult body mass. Additional eGFR calculator available at: http://www.[employer].ScoreStream/multiple_crcl_2012.htm Glucose [Mass/Vol] 142 mg/dL High 70 - 99 mg/dL [facility] Interpretation and review of laboratory results Abnormal [facility] Phosphate [Mass/Vol] 3.3 mg/dL 2.5 - 4 .5 mg/dL [facility] Potassium [Moles/Vol] 3.6 mmol/L Low 3.7 - 5.3 mmol/L [facility] Sodium [Moles/Vol] 141 mmol/L 135 - 144 mmol/L [facility] Urea nitrogen (BldV) [Mass/Vol] 11 mg/dL 6 - 20 mg/dL [facility] Vancomycin Level, Randomon 0 06-19-2022 Vancomycin Rm 18.4 ug/mL [facility] Comment on above: Higher trough serum vancomycin concentrations of 15-20 ug/mL are recommended for complicated infections such as bacteremia, endocarditis, osteomyelitis, meningitis, and hospital acquired pneumonia. Cult,Bloodon 06-18-2022 Cult,Blood Specimen Description .BLOOD Culture NO GROWTH 5 DAYS Report Status FINAL 06/18/2022 Normal [facility] Comment on above: Performed By: #### B C #### [facility] [address] [place] [address] [place] [address] Forensic Specialist: Joelle Parker MD Basic Metabolic Panel w/ Ref rebecca to MGon 06-17-2022 Anion gap [Moles/Vol] 10 mmol/L 9 - 17 mmol/L [facility] Calcium [Mass/Vol] 8.8 mg/dL 8.6 - 10. 4 mg/dL [facility] Chloride [Moles/Vol] 106 mmol/L 98 - 10 7 mmol/L [facility] CO2 [Moles/Vol] 24 mmol/L 20 - 31 mmol/L [facility] Creatinine [Mass/Vol] 0.73 mg/dL 0.7 - 1.2 mg/dL [facility] GFR >60 60 - PI NF mL/min [facility] GFR Non- >60 60 - PINF mL/min [facility] GFR/1.73 sq M.predicted MDRD (S/P/Bld) [Vol rate/Area] [facility] Comment on above: Average GFR for 40-4 9 years old: 99 mL/min/1.73sq m Chronic Kidney Disease: <60 mL/min/1.73sq m Kidney failure: <15 mL/min/1.73sq m eGFR calculated using average adult body mass. Additional eGFR calculator available at: http://www.[employer]/multiple_crcl_2012.htm Glucose [Mass/Vol] 147 mg/dL High 70 - 99 mg/dL [facility] Interpretation and review of laboratory results Abnormal [facility] Potassium [Moles/Vol] 3.7 mmol/L 3.7 - 5.3 mmol/L [facility] Sodium [Moles/Vol] 140 mmol/L 135 - 144 mmol/L [facility] Urea nitrogen (BldV) [Mass/Vol] 9 mg/dL 6 - 20 mg/dL [facility] Respiratory Cultureon 2021 Bacteria identified Cx Nom (Unsp spec) NORMAL RESPIRATORY CHRISTOPHER MODERATE GROWTH [facility] Direct Exam >25 NEUTROPHILS/LPF [facility] Direct Exam < 10 EPITHELIAL CELLS/LPF [facility] Direct Exam MIXED BACTERIAL MORPHOTYPES SEEN ON GRAM STAIN. Abnormal [facility] Interpretation and review of laboratory results Abnormal [facility] Specimen Description .ASPIRATED SPUTUM [facility] ANTISTREPTOLYSIN O SCREENon 06-16-2022 ASO 130.8 [facility] Brain Natriuretic Peptideon 06-16-2022 Natriuretic peptide B (Bld) [Mass/Vol] 287 pg/mL NINF - 300 pg/mL [facility] Comment on above: An age-independent cutoff point of 300 pg/ml has a 98% negative predictive value excluding acute heart failure. C-Reactive Proteinon 022 CRP [Mass/Vol] 16.4 mg/L High 0 - 5 mg/L [facility] Interpretation and review of laboratory results Abnormal [facility] Comprehensive Metabolic Pane l w/ Reflex to MGon 06-16-2022 Albumin [Mass/Vol] 3.1 g/dL Low 3.5 - 5.2 g/dL [facility] Albumin/Globulin [Mass ratio] 0.8 {ratio} Low 1 - 2.5 [facility] ALP (Bld) [Catalytic activity/Vol] 76 U/L 40 - 129 U/L [facility] ALT [Catalytic activity/Vol] 21 U/L 5 - 41 U/L [facility] Anion gap [Moles/Vol] 10 mmol/L 9 - 17 mmol/L [facility] AST [Catalytic activity/Vol] 15 U/L NINF - 40 U/L [facility] Bilirubin [Mass/Vol] 0.35 mg/dL 0.3 - 1 .2 mg/dL [facility] Calcium [Mass/Vol] 8.6 mg/dL 8.6 - 10. 4 mg/dL [facility] Chloride [Moles/Vol] 107 mmol/L 98 - 10 7 mmol/L [facility] CO2 [Moles/Vol] 22 mmol/L 20 - 31 mmol/L [facility] Creatinine [Mass/Vol] 0.72 mg/dL 0.7 - 1.2 mg/dL [facility] Free PSA/Total PSA [Mass fraction] 7.0 g/dL 6.4 - 8.3 g/dL [facility] GFR >60 60 - PI NF mL/min [facility] GFR Non- >60 60 - PINF mL/min [facility] GFR/1.73 sq M.predicted MDRD (S/P/Bld) [Vol rate/Area] [facility] Comment on above: Average GFR for 40-4 9 years old: 99 mL/min/1.73sq m Chronic Kidney Disease: <60 mL/min/1.73sq m Kidney failure: <15 mL/min/1.73sq m eGFR calculated using average adult body mass. Additional eGFR calculator available at: http://www.[employer].ScoreStream/multiple_crcl_2012.htm Glucose [Mass/Vol] 96 mg/dL 70 - 99 mg/dL [facility] Interpretation and review of laboratory results Abnormal [facility] Potassium [Moles/Vol] 3.6 mmol/L Low 3.7 - 5.3 mmol/L [facility] Sodium [Moles/Vol] 139 mmol/L 135 - 144 mmol/L [facility] Urea nitrogen (BldV) [Mass/Vol] 9 mg/dL 6 - 20 mg/dL [facility] DRUG SCREEN MULTI URINEon Amphetamine Screen, Ur Negative [facility]GAT[facility] Comment on above: (Positive cutoff 1000 ng/mL) Barbiturate Screen, Ur Negative NEGATIVE [facility] Comment on above: (Positive cutoff 200 ng/mL) Benzodiazepine Screen, Urine Negative NEGATIVE [facility] Comment on above: (Positive cutoff 200 ng/mL) Cannabinoid Scrn, Ur Negative NEGATIVE [facility] Comment on above: (Positive cutoff 50 ng/mL) Cocaine Metabolite, Urine Negative NEGATIVE [facility] Comment on above: (Positive cutoff 300 ng/mL) Fentanyl, Ur Negative NEGATIVE [facility] Comment on above: (Positive cutoff 5 ng/ml) Methadone Screen, Urine Negative NEGATIVE B [facility] Comment on above: (Positive cutoff 300 ng/mL) Opiates, Urine Negative NEGATIVE [facility] Comment on above: (Positive cutoff 300 ng/mL) Oxycodone Screen, Ur Negative NEGATIVE [facility] Comment on above: (Positive cutoff 100 ng/mL) Phencyclidine, Urine Negative NEGATIVE [facility] Comment on above: (Positive cutoff 25 ng/mL) Test Information Assay provides medical screening only. The absence of expected drug(s) and/or metabolite(s) may indicate diluted or adulterated urine, limitations of testing or timing of collection. [facility] Comment on above: Testing for legal pu rposes should be confirmed by another method. To request confirmation of test result, please call the lab within 7 days of sample submission. [facility] EKG 12 LeadOrdered By: Alec Cheung on 06-16-2022 Atrial Rate 113 BPM [facility] Work Phone: P Blacklick 65 degrees [facility] [employer] Work Phone: P-R Interval 132 ms [employer] Work Phone: Q-T Interval 332 ms [employer] [employer] Work Phone: QRS Duration 80 ms [facility] [employer] Work Phone: QTc Calculation (Bazett) 455 ms [employer] [employer] Work Phone: R Blacklick 73 degrees [facility] Work Phone: T Blacklick 57 degrees [facility] [employer] Work Phone: Ventricular Rate 113 BPM [facility] [employer] Work Phone: [facility] [employer] Work Phone: EKG 12 Leadon 06-16-2022 Sinus tachycardia Otherwise normal ECG When compared with ECG of 30-JAN-2022 08:47, No significant change was found [facility] Alec Shook MD - 06/16/2022 Sinus tachycardia Otherwise normal ECG When compared with ECG of 30-JAN-2022 08:47, No significant change was found [facility] [employer] Phone: Echocardiogram 3Don 06-16-20 Transthoracic Echocardiography Report (TTE) Patient Name COTY Date of Study 06/16/2022 TIP Plata Date of 1980 Gender Male Age 42 year(s) Race Room Number 430 Height: 73 inch, 185.42 cm Corporate ID [id number] Weight: 172 pounds, 78 kg # Patient Acct [id number] BSA: 2.02 m^2 BMI: 22.69 # kg/m^2 MR # [id number] Investigator Tanner Fam Interpreting Physician Alec Cheung Fellow Referring Nurse Practitioner Interpreting Referring Physician Beverly Flores Type of Study TTE procedure:2D Echocardiogram, Doppler, Color Doppler. Procedure Date Date: 06/16/2022 Start: 11:00 AM Study Location: [facility] Indications:Endocardi tis. History / Tech. Comments: [...] Lateral Wall E' velocity:0.10 m/s MHPN STV CPACS Alec Cheung MD - 06/16/2022 Transthoracic Echocardiography Report (TTE) Patient Name COTY Date of Study 06/16/2022 TPI Plata Date of 1980 Gender Male Age 42 year(s) Race Room Number 430 Height: 73 inch, 185.42 cm Corporate ID [id number] Weight: 172 pounds, 78 kg # Patient Acct [id number] BSA: 2.02 m^2 BMI: 22.69 # kg/m^2 MR # [id number] Investigator T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 Procedure Date Date: 06/16/2022 Start: 11:00 AM Study Location: [facility] Indications:Endocardi tis. History / Tech. Comments: [...] velocity:0.09 m/s Lateral Wall E' velocity:0.10 m/s [facility] [employer] Work Phone: [facility] [employer] Work Phone: HIV Screenon 06-16-2022 HIV Ag/Ab Non-Reactive NONREACTIVE [facility] [employer] Comment on above: No laboratory eviden ce of HIV infection. If acute HIV infection is suspected, consider testing for HIV-1 RNA. [facility] Lactate, Sepsison 06-16-2022 Lactic Acid, Sepsis, Whole Blood 1.6 mmol/L 0.5 - 1.9 mmol/L [facility] MRI CERVICAL SPINE W FELIPE Beaver 06-16-2022 No MRI evidence of discitis-osteomyeliti s or epidural abscess. Degenerative neural foraminal stenosis at C6-C7, on the left hand side. [facility] EXAMINATION: MRI OF THE CERVICAL SPINE [...] spinal canal stenosis or neural foraminal narrowing. [facility] Richard Haas MD - 06/16/2022 EXAMINATION: [...] at C6-C7, on the left hand side. [facility] [employer] Work Phone: [facility] Work Phone: [facility] LUM[facility] No MRI evidence of discitis-osteomyeliti s or epidural abscess. 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 [facility] RIS CONSOLIDATED EXAMINATION: MRI OF THE LUMBAR SPINE [...] zone. A lateralized disc bulge results in [id number] narrowing of the left neural foramen. L4-L5: There is no significant disc protrusion, spinal canal stenosis or neural foraminal narrowing. L5-S1: There is no significant disc protrusion, spinal canal stenosis or neural foraminal narrowing. [facility] Richard Haas MD - 06/16/2022 EXAMINATION: [...] zone. A lateralized disc bulge results in [id number] narrowing of the left neural foramen. L4-L5: There is no significant disc protrusion, spinal canal stenosis or neural foraminal narrowing. L5-S1: There is no significant disc protrusion, spinal canal stenosis or neural foraminal narrowing. IMPRESSION: No MRI evidence of discitis-osteomyeliti s or epidural abscess. 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 [employer] Work Phone: MRI LUMBAR SPINE W FELIPE WINN STOrdered By: Richard Haas on 06-16-2022 [employer] Work Phone: MRSA DNA Probe, Nasalon MRSA, DNA, Nasal Negative NEGATIVE [employer] Comment on above: NEGATIVE: MRSA DNA n ot detected by nucleic acid amplification. Results should be used as an adjunct to nosocomial control efforts to identify patients needing enhanced precautions. The test is not intended to identify patients with staphylococcal infections. Results should not be used to guide or monitor treatment for MRSA infections. Specimen Description .NASAL SWAB [facility] No Panel Informationon 06-16 Radiology Study observation (narrative) [employer] Work Phone: [employer] [facility] Procalcitoninon 06-16-2022 Interpretation and review of laboratory results Abnormal [employer] Procalcitonin 0.21 ng/mL High NINF - 0.09 ng/mL [facility] [employer] Comment on above: Suspected Sepsis: <0.50 ng/mL [...] entered into the Change in Procalcitonin Calculator (www.nicqjr-jvl-sycivskczh.ScoreStream) to determine the patient's Mortality Risk Prognosis In healthy neonates, plasma Procalcitonin (PCT) concentrations increase gradually after , reaching peak values at about 24 hours of age then decrease to normal values below 0.5 ng/mL by 48-72 hours of age. [facility] Interpretation and review of laboratory results Abnormal [facility] [employer] Procalcitonin 0.2 ng/mL High NINF - 0.09 ng/mL [facility] Comment on above: Suspected Sepsis: <0.50 ng/mL [...] entered into the Change in Procalcitonin Calculator (www.invgyc-dps-owarhxccet.ScoreStream) to determine the patient's Mortality Risk Prognosis In healthy neonates, plasma Procalcitonin (PCT) concentrations increase gradually after , reaching peak values at about 24 hours of age then decrease to normal values below 0.5 ng/mL by 48-72 hours of age. [facility] [employer] Protime-INRon 06-16-2022 INR Coag (Bld) [Relative time] 1.0 {INR} [facility] [employer] Comment on above: Therapeutic Range: Moderate Anticoagulant Intensity: INR = 2.0-3.0 High Anticoagulant Intensity: INR = 2.5-3.5 PT Coag (PPP) [Time] 10.5 s [facility] [employer] [facility] STREP SCREEN GROUP A THROATo n 06-16-2022 S. pyogenes Ag Ql (Throat) Negative NEGATIVE [facility] Comment on above: Rapid Strep A negati ve. A negative Rapid Group A Strep Screen result does not rule out the possibility of Group A Streptococci in the specimen. A Group A Strep DNA test is available upon request. Source .THROAT SWAB [facility] Sputum gram stainon 06-16-20 Direct Exam DUPLICATE ORDER [facility] Specimen Description .ASPIRATED SPUTUM [facility] Strep Pneumoniae Antigenon 0 06-16-2022 Source .URINE [facility] Strep pneumo Ag Negative [facility] Comment on above: Strep pneumoniae ant igen not detected [facility] Urinalysis with Reflex to Cu ltureon 06-16-2022 Bilirubin Urine Negative NEGATIVE [facility] Color, UA Yellow Yellow [facility] Glucose, Ur Negative NEGATIVE [facility] Ketones Ql (U) Negative NEGATIVE [facility] Leukocyte esterase Test strip Ql (U) Negative NEGATIVE [facility] Nitrite, Urine Negative NEGATIVE [facility] pH, UA 6.5 5 - 8 [facility] Protein, UA Negative NEGATIVE [facility] Specific [place], UA 1.021 1.005 - 1.03 [facility] Turbidity UA Clear Clear [facility] Urinalysis Comments Microscopic exam not performed based on chemical results unless requested in original order. [facility] Urine Hgb Negative NEGATIVE [facility] Urobilinogen, Urine Normal Normal [facility] Basic Metabolic Panelon 08 Anion gap [Moles/Vol] 11 mmol/L 9 - 17 mmol/L [facility] Calcium [Mass/Vol] 9.9 mg/dL 8.6 - 10. 4 mg/dL [facility] Chloride [Moles/Vol] 101 mmol/L 98 - 10 7 mmol/L [facility] CO2 [Moles/Vol] 24 mmol/L 20 - 31 mmol/L [facility] Creatinine [Mass/Vol] 0.8 mg/dL 0.7 - 1.2 mg/dL [facility] GFR >60 60 - PI NF mL/min [facility] GFR Non- >60 60 - PINF mL/min [facility] GFR/1.73 sq M.predicted MDRD (S/P/Bld) [Vol rate/Area] [facility] Comment on above: Average GFR for 40-4 9 years old: 99 mL/min/1.73sq m Chronic Kidney Disease: <60 mL/min/1.73sq m Kidney failure: <15 mL/min/1.73sq m eGFR calculated using average adult body mass. Additional eGFR calculator available at: http://www.[employer]emat[employer]_crcl_2011.htm Glucose [Mass/Vol] 105 mg/dL High 70 - 99 mg/dL [facility] Interpretation and review of laboratory results Abnormal [facility] Potassium [Moles/Vol] 4.2 mmol/L 3.7 - 5.3 mmol/L [facility] Sodium [Moles/Vol] 136 mmol/L 135 - 144 mmol/L [facility] Urea nitrogen (BldV) [Mass/Vol] 15 mg/dL 6 - 20 mg/dL [facility] CBC with Auto Differentialon 06-15-2022 Absolute Eos # 0.27 [facility] Absolute Immature Granulocyte 0.04 [facility] Absolute Lymph # 1.20 [facility] Absolute [place] # 1.07 [facility] Basophils (Bld) [#/Vol] 0.05 10*3/uL [facility] Basophils/100 WBC (Bld) 1 % 0 - 2 % B ON [facility] Eosinophils/100 WBC (Bld) 3 % 1 - 4 % [facility] Hematocrit (Bld) [Volume fraction] 38.8 % Low 40.7 - 50.3 % [facility] Hemoglobin (Bld) [Mass/Vol] 12.9 g/dL Low 13 - 17 g/dL [facility] Immature granulocytes/100 WBC (Bld) 0 % 0 [facility] Interpretation and review of laboratory results Abnormal [facility] Lymphocytes/100 WBC (Bld) 11 % Low 24 - 43 % [facility] MCH (RBC) [Entitic mass] 27.9 pg 25. 2 - 33.5 pg [facility] MCHC (RBC) [Mass/Vol] 33.2 g/dL 28.4 - 34.8 g/dL [facility] MCV (RBC) [Entitic vol] 83.8 fL 82.6 - 102.9 fL [facility] Monocytes/100 WBC (Bld) 10 % 3 - 12 % B ON [facility] NRBC Automated 0.0 0.0 per 100 WBC [facility] Platelet distribution width (Bld) [Ratio] 18.5 % High 11.8 - 14.4 % [facility] Platelet mean volume (Bld) [Entitic vol] 9.8 fL 8.1 - 13.5 fL [facility] Platelets (Bld) [#/Vol] 224 10*3/uL [facility] RBC (Bld) [#/Vol] 4.63 10*6/uL 4.21 - 5.7 7 m/uL [facility] RBC (Bld) [#/Vol] ANISOCYTOSIS PRESENT [facility] Segmented neutrophils/100 WBC (Bld) 75 % High 36 - 65 % [facility] Segs Absolute 7.90 [facility] WBC (Bld) [#/Vol] 10.5 10*3/uL [facility] COVID-19, Rapidon 06-15-2022 SARS-CoV-2 (COVID-19) RNA CHARO+probe Ql (Unsp spec) Not detected Not Detected [facility] Comment on above: Rapid NAAT: The [...] management decisions. Fact sheet for Healthcare Providers: https://www.fda.gov/media/291214/download Fact sheet for Patients: https://www.fda.gov/media/250119/download Methodology: Isothermal Nucleic Acid Amplification Specimen Description .NASOPHARYNGEAL SWAB [facility] CT CHEST PULMONARY EMBOLISM W CONTRASTon 06-15-2022 Addendum by Akanksha Santoro MD on 06/15/2022 10:18 PM EDT ADDENDUM: There is mediastinal lymphadenopathy best visualized in subcarinal location which are likely reactive to abnormalities within the lungs. [facility] Work Phone: No evidence of pulmonary [...] findings are most likely due to atelectasis. PN RIS CONSOLIDATED EXAMINATION: CTA OF THE CHEST [...] No acute bone or soft tissue abnormality. [facility] Akanksha Austin MD - 06/15/2022 EXAMINATION: CTA OF THE [...] findings are most likely due to atelectasis. [employer] Work Phone: Radiology Study observation (narrative) [employer] Work Phone: CT CHEST PULMONARY EMBOLISM W CONTRASTOrdered By: Akanksha Santoro on 06-15-2022 [employer] Work Phone: Hepatic Function Panelon Albumin [Mass/Vol] 3.4 g/dL Low 3.5 - 5.2 g/dL [employer] Albumin/Globulin [Mass ratio] 0.8 {ratio} Low 1 - 2.5 [facility] [employer] ALP (Bld) [Catalytic activity/Vol] 85 U/L 40 - 129 U/L [employer] ALT [Catalytic activity/Vol] 22 U/L 5 - 41 U/L [employer] AST [Catalytic activity/Vol] 16 U/L NINF - 40 U/L [facility] Bilirubin [Mass/Vol] 0.41 mg/dL 0.3 - 1 .2 mg/dL [facility] Bilirubin, Indirect 0.26 mg/dL 0 - 1 mg/dL [employer] Bilirubin.indirect [Mass/Vol] 0.15 mg/dL NINF - 0.31 mg/dL [employer] Free PSA/Total PSA [Mass fraction] 7.5 g/dL 6.4 - 8.3 g/dL [facility] [employer] Interpretation and review of laboratory results Abnormal [facility] [employer] [facility] Lactate, Sepsison 06-15-2022 Lactic Acid, Sepsis, Whole Blood 1.0 mmol/L 0.5 - 1.9 mmol/L [facility] Lactic Acid, Sepsis, Whole Blood 1.6 mmol/L 0.5 - 1.9 mmol/L [facility] Sedimentation Rateon 022 Interpretation and review of laboratory results Abnormal [facility] Sed Rate 35 High [facility] Comment on above: ADDED ON [facility] Troponinon 06-15-2022 Troponin, High Sensitivity ng/L 0 - 22 ng/L [facility] Comment on above: High Sensitivity Troponin values cannot be compared with other Troponin methodologies. Patients with high levels of Biotin oral intake (i.e >5mg/day) may have falsely decreased Troponin levels. Samples collected within 8 hours of biotin intake may require additional information for diagnosis. [facility] Troponin, High Sensitivity ng/L 0 - 22 ng/L [facility] Comment on above: High Sensitivity Troponin values cannot be compared with other Troponin methodologies. Patients with high levels of Biotin oral intake (i.e >5mg/day) may have falsely decreased Troponin levels. Samples collected within 8 hours of biotin intake may require additional information for diagnosis. [facility] XR CHEST (2 VW)on 06-15-2022 Increased opacity in the right infrahilar region compared other studies which could represent a small area of atelectasis, pneumonia or scarring in this area. Radiographic follow-up may be helpful. [facility] EXAMINATION: TWO XRAY VIEWS OF THE [...] cardiomediastinal silhouette and pulmonary vessels appear normal. [facility] Der Gonsalves MD - 06/15/2022 EXAMINATION: TWO XRAY [...] this area. Radiographic follow-up may be helpful. [employer] Work Phone: Radiology Study observation (narrative) [employer] Work Phone: XR CHEST (2 VW)Ordered By: Soledad Gonsalves on 06-15-2022 [employer] Work Phone: CBC with Auto Differentialon 06-13-2022 Absolute Eos # 0.20 [employer] Absolute Immature Granulocyte 0.03 [facility] [employer] Absolute Lymph # 1.03 [employer] [facility] Absolute [place] # 0.91 [facility] [employer] Basophils (Bld) [#/Vol] 0.03 10*3/uL [facility] [employer] Basophils/100 WBC (Bld) 0 % 0 - 2 % B ON [facility] Eosinophils/100 WBC (Bld) 2 % 1 - 4 % [employer] Hematocrit (Bld) [Volume fraction] 38.5 % Low 40.7 - 50.3 % [employer] Hemoglobin (Bld) [Mass/Vol] 12.2 g/dL Low 13 - 17 g/dL [employer] Immature granulocytes/100 WBC (Bld) 0 % 0 [facility] [employer] Interpretation and review of laboratory results Abnormal [facility] [employer] Lymphocytes/100 WBC (Bld) 9 % Low 24 - 43 % [employer] MCH (RBC) [Entitic mass] 27.2 pg 25. 2 - 33.5 pg [facility] MCHC (RBC) [Mass/Vol] 31.7 g/dL 28.4 - 34.8 g/dL [facility] MCV (RBC) [Entitic vol] 85.9 fL 82.6 - 102.9 fL [facility] Monocytes/100 WBC (Bld) 8 % 3 - 12 % B ON [facility] NRBC Automated 0.0 0.0 per 100 WBC [facility] Platelet distribution width (Bld) [Ratio] 18.5 % High 11.8 - 14.4 % [facility] Platelet mean volume (Bld) [Entitic vol] 9.3 fL 8.1 - 13.5 fL [facility] Platelets (Bld) [#/Vol] 181 10*3/uL [facility] RBC (Bld) [#/Vol] 4.48 10*6/uL 4.21 - 5.7 7 m/uL [facility] Segmented neutrophils/100 WBC (Bld) 81 % High 36 - 65 % [facility] Segs Absolute 9.54 High [facility] WBC (Bld) [#/Vol] 11.7 10*3/uL High [facility] S [facility] CBC with Diffon 06-13-2022 Abs. Basophil 0.03 k/uL Normal 0.00-0.20 [facility] Comment on above: Performed By: #### C P, CDP #### [facility] [address] [place] [address] Forensic Specialist: Joelle Parker MD Abs.Imm.Granulocyte 0.03 k/uL Normal 0.00-0.30 [facility] Comment on above: Performed By: #### C P, CDP #### [facility] [address] [place] [address] Forensic Specialist: Joelle Parker MD Abs.Neutrophil (Seg) 9.54 k/uL High 1.50-8.10 [facility] Comment on above: Performed By: #### C P, CDP #### [facility] [address] [place], [place] [id number] Forensic Specialist: Joelle Parker MD Basophils/100 WBC (Bld) 0 % Normal 0-2 [facility] Comment on above: Performed By: #### C P, CDP #### [address] [place], [place] [id number] Forensic Specialist: Joelle Parker MD Eosinophils (Bld) [#/Vol] 0.20 10*3/uL Normal 0.00-0.44 [facility] Comment on above: Performed By: #### C P, CDP #### [address] [place], [place] [id number] Forensic Specialist: Joelle Parker MD Eosinophils/100 WBC (Bld) 2 % Normal 1-4 [facility] Comment on above: Performed By: #### C P, CDP #### [address] [place], [facility] Forensic Specialist: Joelle Parker MD Erythrocyte distribution width (RBC) [Ratio] 18.5 % High 11.8-14.4 [facility] Comment on above: Performed By: #### C P, CDP #### [address] [place], [place] [id number] Forensic Specialist: Joelle Parker MD Hematocrit (Bld) [Volume fraction] 38.5 % Low 40.7-50.3 [facility] Comment on above: Performed By: #### C P, CDP #### [address] [place], [place] [id number] Forensic Specialist: Joelle Parker MD Hemoglobin (Bld) [Mass/Vol] 12.2 g/dL Low 13.0-17.0 [facility] Comment on above: Performed By: #### C P, CDP #### [address] [place] [address] Forensic Specialist: Joelle Parker MD Immature granulocytes/100 WBC (Bld) 0 % Normal 0 [facility] Comment on above: Performed By: #### C P, CDP #### [facility] [address] [place] [address] Forensic Specialist: Joelle Parker MD Lymphocytes (Bld) [#/Vol] 1.03 10*3/uL Low 1.10-3.70 [facility] Comment on above: Performed By: #### C P, CDP #### [facility] [address] [place] [address] [place] [address] Forensic Specialist: Joelle Parker MD Lymphocytes/100 WBC (Bld) 9 % Low 24-43 [facility] Comment on above: Performed By: #### C P, CDP #### [address] [place] [address] Forensic Specialist: Joelle Parker MD MCH (RBC) [Entitic mass] 27.2 pg Normal 25.2-33.5 [facility] Comment on above: Performed By: #### C P, CDP #### [address] [place] [address] Forensic Specialist: Joelle Parker MD MCHC (RBC) [Mass/Vol] 31.7 g/dL Normal 28.4-34.8 [facility] Comment on above: Performed By: #### C P, CDP #### [address] [place] [address] Forensic Specialist: Joelle Parker MD MCV (RBC) [Entitic vol] 85.9 fL Normal 82.6-102.9 [facility] Comment on above: Performed By: #### C P, CDP #### [address] [place] [address] Forensic Specialist: Joelle Parker MD Monocytes (Bld) [#/Vol] 0.91 10*3/uL Normal 0.10-1.20 [facility] Comment on above: Performed By: #### C P, CDP #### [facility] [address] [place] [address] Forensic Specialist: Joelle Parker MD Monocytes/100 WBC (Bld) 8 % Normal 3-12 [facility] Comment on above: Performed By: #### C P, CDP #### [facility] [address] [place], [place] [id number] Forensic Specialist: Joelle Parker MD Neutrophil (Seg) 81 % High 36-65 [facility] Comment on above: Performed By: #### C P, CDP #### [address] [place] [address] Forensic Specialist: Joelle Parker MD NRBC Automated 0.0 per 100 WBC Normal 0.0 [facility] Comment on above: Performed By: #### C P, CDP #### [address] [place], [place] [id number] Forensic Specialist: Joelle Parker MD Platelet mean volume (Bld) [Entitic vol] 9.3 fL Normal 8.1-13.5 [facility] Comment on above: Performed By: #### C P, CDP #### [address] [place], [place] [address] Forensic Specialist: Joelle Parker MD Platelets (Bld) [#/Vol] 181 10*3/uL Normal 138-453 [facility] Comment on above: Performed By: #### C P, CDP #### [address] [place] [address] Forensic Specialist: Joelle Parker MD RBC (Bld) [#/Vol] 4.48 10*6/uL Normal 4.21-5.77 [facility] Comment on above: Performed By: #### C P, CDP #### [facility] [address] [place], [place] [id number] Forensic Specialist: Joelle Parker MD WBC (Bld) [#/Vol] 11.7 10*3/uL High 3.5-11.3 [facility] Comment on above: Performed By: #### C P, CDP #### [facility] [address] [place], [place] [id number] Forensic Specialist: Joelle Parker MD Comp Metabolic Profon 2021 (cont.) Normal [facility] Comment on above: Result Comment: Aver age GFR for 40-49 years old: 99 mL/min/1.73sq m Chronic Kidney Disease: <60 mL/min/1.73sq m Kidney failure: <15 mL/min/1.73sq m eGFR calculated using average adult body mass. Additional eGFR calculator available at: http://www.[employer]/multiple_crcl_2011.htm Performed By: #### C P, CDP #### [facility] [address] [place], [place] [id number] Forensic Specialist: Joelle Parker MD Albumin [Mass/Vol] 3.8 g/dL Normal 3.5-5.2 [facility] Comment on above: Performed By: #### C P, CDP #### [facility] [address] [place], [place] [id number] Forensic Specialist: Joelle Parker MD Albumin/Glob Ratio 0.9 Low 1.0-2.5 [facility] Comment on above: Performed By: #### C P, CDP #### [facility] [address] [place], [place] [id number] Forensic Specialist: Joelle Parker MD Alkaline Phos 93 U/L Normal 40-129 [facility] Comment on above: Performed By: #### C P, CDP #### [facility] [address] [place], [place] [id number] Forensic Specialist: Joelle Parker MD ALT [Catalytic activity/Vol] 28 U/L Normal 5-41 [facility] Comment on above: Performed By: #### C P, CDP #### [facility] [address] [place] [address] Forensic Specialist: Joelle Parker MD Anion gap [Moles/Vol] 11 mmol/L Normal 9-17 [facility] Comment on above: Performed By: #### C P, CDP #### [facility] [address] [place] [address] Forensic Specialist: Joelle Parker MD AST [Catalytic activity/Vol] 19 U/L Normal <40 [facility] Comment on above: Performed By: #### C P, CDP #### [facility] [address] [place], [place] [id number] Forensic Specialist: Joelle Parker MD Bilirubin [Mass/Vol] 0.39 mg/dL Normal 0.3-1.2 [facility] Comment on above: Performed By: #### C P, CDP #### [facility] [address] [place], [place] [id number] Forensic Specialist: Joelle Parker MD BUN/CRE Ratio 18 Normal 9-20 [facility] Comment on above: Performed By: #### C P, CDP #### [facility] [address] [place], [place] [id number] Forensic Specialist: Joelle Parker MD Calcium [Mass/Vol] 9.7 mg/dL Normal 8.6-10.4 [facility] Comment on above: Performed By: #### C P, CDP #### [facility] [address] [place] [address] Forensic Specialist: Joelle Parker MD Chloride [Moles/Vol] 101 mmol/L Normal 98-107 [facility] Comment on above: Performed By: #### C P, CDP #### [facility] [address] [place], [place] [id number] Forensic Specialist: Joelle Parker MD CO2 [Moles/Vol] 25 mmol/L Normal 20-31 [facility] Comment on above: Performed By: #### C P, CDP #### [facility] [address] [place], [place] [id number] Forensic Specialist: Joelle Parker MD Creatinine [Mass/Vol] 0.85 mg/dL Normal 0.70-1.20 [facility] Comment on above: Performed By: #### C P, CDP #### [facility] [address] [place], [place] [id number] Forensic Specialist: Joelle Parker MD GFR, Amer >60 Normal >60 [facility] Comment on above: Performed By: #### C P, CDP #### [facility] [address] [place], [place] [address]86[address] Forensic Specialist: Joelle Parker MD GFR,non Amer >60 Normal >60 [facility] Comment on above: Performed By: #### C P, CDP #### [facility] [address] [place], [place] [id number] Forensic Specialist: Joelle Parker MD Glucose [Mass/Vol] 106 mg/dL High 70-99 [facility] Comment on above: Performed By: #### C P, CDP #### [facility] [address] [place], [place] [id number] Forensic Specialist: Joelle Parker MD Potassium [Moles/Vol] 4.3 mmol/L Normal 3.7-5.3 [facility] Comment on above: Performed By: #### C P, CDP #### [facility] [address] [place], [place] [id number] Forensic Specialist: Joelle Parker MD Protein [Mass/Vol] 8.2 g/dL Normal 6.4-8.3 [facility] Comment on above: Performed By: #### C P, CDP #### [facility] [address] [place] [address] Forensic Specialist: Joelle Parker MD Sodium [Moles/Vol] 137 mmol/L Normal 135-144 [facility] Comment on above: Performed By: #### C P, CDP #### [facility] [address] [place] [address] Forensic Specialist: Joelle Parker MD Staging: Normal [facility] Comment on above: Result Comment: Stag e 1: Some kidney damage normal GFR Stage 2: Mild kidney damage GFR 60-89 Stage 3: Moderate kidney damage GFR 30-59 Stage 4: Severe kidney damage GFR 15-29 Stage 5: Severe kidney damage GFR <15 ESRD - chronic treatment by dialysis or transplant Performed By: #### C P, CDP #### [facility] [address] [place] [address] Forensic Specialist: Joelle Parker MD Urea nitrogen [Mass/Vol] 15 mg/dL Normal 6-20 [facility] Comment on above: Performed By: #### C P, CDP #### [facility] [address] [place] [address] [place] [address] Forensic Specialist: Joelle Parker MD Comprehensive Metabolic Pane [facility] 06-13-2022 Albumin [Mass/Vol] 3.8 g/dL 3.5 - 5.2 g/dL [facility] Albumin/Globulin [Mass ratio] 0.9 {ratio} Low 1 - 2.5 [facility] ALP (Bld) [Catalytic activity/Vol] 93 U/L 40 - 129 U/L [facility] ALT [Catalytic activity/Vol] 28 U/L 5 - 41 U/L [facility] Anion gap [Moles/Vol] 11 mmol/L 9 - 17 mmol/L [facility] AST [Catalytic activity/Vol] 19 U/L NINF - 40 U/L [facility] Bilirubin [Mass/Vol] 0.39 mg/dL 0.3 - 1 .2 mg/dL [facility] Calcium [Mass/Vol] 9.7 mg/dL 8.6 - 10. 4 mg/dL [facility] Chloride [Moles/Vol] 101 mmol/L 98 - 10 7 mmol/L [facility] CO2 [Moles/Vol] 25 mmol/L 20 - 31 mmol/L [facility] Creatinine [Mass/Vol] 0.85 mg/dL 0.7 - 1.2 mg/dL [facility] Free PSA/Total PSA [Mass fraction] 8.2 g/dL 6.4 - 8.3 g/dL [facility] GFR >60 60 - PI NF mL/min [facility] GFR Non- >60 60 - PINF mL/min [facility] Glucose [Mass/Vol] 106 mg/dL High 70 - 99 mg/dL [facility] Interpretation and review of laboratory results Abnormal [facility] Potassium [Moles/Vol] 4.3 mmol/L 3.7 - 5.3 mmol/L [facility] Sodium [Moles/Vol] 137 mmol/L 135 - 144 mmol/L [facility] Urea nitrogen (BldV) [Mass/Vol] 15 mg/dL 6 - 20 mg/dL [facility] Urea nitrogen/Creatinine (Bld) [Mass ratio] 18 9 - 20 [facility] Laboratory - Chemistry and C hemistry - challengeon 06-13-2022 GFR/1.73 sq M.predicted MDRD (S/P/Bld) [Vol rate/Area] [facility] Comment on above: Average GFR for 40-4 9 years old: 99 mL/min/1.73sq m Chronic Kidney Disease: <60 mL/min/1.73sq m Kidney failure: <15 mL/min/1.73sq m eGFR calculated using average adult body mass. Additional eGFR calculator available at: http://www.[employer].ScoreStream/multiple_crcl_2012.htm Stage 1: Some kidney damage normal GFR Stage 2: Mild kidney damage GFR 60-89 Stage 3: Moderate kidney damage GFR 30-59 Stage 4: Severe kidney damage GFR 15-29 Stage 5: Severe kidney damage GFR <15 ESRD - chronic treatment by dialysis or transplant Cult,Bloodon 05-22-2022 Cult,Blood Specimen Description .BLOOD Culture NO GROWTH 5 DAYS Report Status FINAL 05/22/2022 Normal [facility] Comment on above: Performed By: #### B C #### [facility] [address] [place] [address] Forensic Specialist: Joelle Parker MD Cult,Bloodon 05-21-2022 Cult,Blood Specimen Description .BLOOD Special Requests 10ML RIGHT HAND Culture POSITIVE Blood Culture DIRECT GRAM STAIN FROM BOTTLE: YEAST NATHANIEL ALBICANS (NOTE) Direct Gram Stain from bottle result called to and read back by: DR MORE @ 2226 ON . [facility] Report Status FINAL 05/21/2022 Abnormal [facility] Comment on above: Performed By: #### B C #### [facility] [address] [place], [place] [phone] Forensic Specialist: Joelle Parker MD Cult,Bloodon 05-11-2022 Cult,Blood Specimen Description .BLOOD Special Requests 20ML LEFT HAND Culture POSITIVE Blood Culture DIRECT GRAM STAIN FROM BOTTLE: YEAST NATHANIEL ALBICANS (NOTE) Direct Gram Stain from bottle result called to and read back by:BILLY FRANZ [facility] RN [id number] 05-09-22 [facility] Report Status FINAL 05/11/2022 Abnormal [facility] Comment on above: Performed By: #### B C #### [facility] [address] [place] [address] Dr[address] [place], [place] [phone] Forensic Specialist: Joelle Parker MD Cult, Bloodon 05-10-2022 Cult, Blood Specimen Description .BLOOD Special Requests 20ML RIGHT HAND Culture NO GROWTH 5 DAYS Report Status FINAL 05/10/2022 Normal [facility] Comment on above: Performed By: #### B C #### [facility] [address] [place] [address] Forensic Specialist: Joelle Parker MD MRI ANKLE LEFT WO CONTRASTon 05-08-2022 1. No evidence of acute osteomyelitis. Irregularity along the posterosuperior process of the calcaneus is likely postsurgical. 2. Partial-thickness tearing of the insertional Achilles tendon involving approximately 1/3 of the tendon thickness. Moderate to advanced Achilles tendinopathy. PN RIS CONSOLIDATED EXAMINATION: MRI OF THE [...] synovial process. The Lisfranc ligament is intact. [facility] RIS CONSOLIDATED Chau Lomax MD [...] tendon thickness. Moderate to advanced Achilles tendinopathy. [employer] Work Phone: MRI ANKLE LEFT WO CONTRASTOr dered By: Chau Lomax on 05-08-2022 [employer] Work Phone: Basic Metabolic Panel w/ Ref rebecca to MGon 05-07-2022 Anion gap [Moles/Vol] 11 mmol/L 9 - 17 mmol/L [employer] Calcium [Mass/Vol] 8.9 mg/dL 8.6 - 10. 4 mg/dL [employer] Chloride [Moles/Vol] 105 mmol/L 98 - 10 7 mmol/L [employer] CO2 [Moles/Vol] 21 mmol/L 20 - 31 mmol/L [employer] Creatinine [Mass/Vol] 0.62 mg/dL Low 0.70 - 1.20 mg/dL [employer] GFR >60 >60 mL/min [employer] GFR Non- >60 >60 mL/min [employer] GFR/1.73 sq M.predicted MDRD (S/P/Bld) [Vol rate/Area] [employer] Comment on above: Average GFR for 40-4 9 years old: 99 mL/min/1.73sq m Chronic Kidney Disease: <60 mL/min/1.73sq m Kidney failure: <15 mL/min/1.73sq m eGFR calculated using average adult body mass. Additional eGFR calculator available at: http://www.[employer].ScoreStream/multiple_crcl_2012.htm Glucose [Mass/Vol] 87 mg/dL 70 - 99 mg/dL [employer] Interpretation and review of laboratory results Abnormal [employer] Potassium [Moles/Vol] 4.2 mmol/L 3.7 - 5.3 mmol/L [facility] Sodium [Moles/Vol] 137 mmol/L 135 - 144 mmol/L [facility] Urea nitrogen (BldV) [Mass/Vol] 16 mg/dL 6 - 20 mg/dL [facility] Cult,Urineon 05-07-2022 Cult,Urine Specimen Description .CLEAN CATCH URINE Culture NO GROWTH Report Status FINAL 05/07/2022 Normal [facility] Comment on above: Performed By: #### B C #### [facility] [address] [place] [address] Forensic Specialist: Joelle Parker MD MRI ANKLE LEFT WO CONTRASTon 05-07-2022 Radiology Study observation (narrative) [facility] Work Phone: C-Reactive Proteinon 022 CRP [Mass/Vol] 36.1 mg/L High 0.0 - 5.0 mg/L [facility] Interpretation and review of laboratory results Abnormal [facility] Microscopic Urinalysison - [facility] Bacteria, UA TRACE Abnormal None [facility] Epithelial Cells UA None [facility] Interpretation and review of laboratory results Abnormal [facility] Mucus, UA TRACE Abnormal None [facility] RBC, UA 0 TO 2 [facility] WBC, UA 0 TO 2 [facility] Sedimentation Rateon 022 Interpretation and review of laboratory results Abnormal [facility] Sed Rate 55 High [facility] Urinalysison 05-06-2022 Bilirubin Urine Negative NEGATIVE [facility] Color, UA Yellow Yellow [facility] Glucose, Ur Negative NEGATIVE [facility] Interpretation and review of laboratory results Abnormal [facility] Ketones Ql (U) Negative NEGATIVE [facility] Leukocyte esterase Test strip Ql (U) Negative NEGATIVE [facility] Nitrite, Urine Negative NEGATIVE [facility] pH, UA 6.5 [facility] Protein, UA Negative NEGATIVE [facility] Specific [place], UA <1.005 Low [facility] Turbidity UA Clear Clear [facility] Urine Hgb TRACE Abnormal NEGATIVE [facility] Urobilinogen, Urine Normal Normal [facility] Urinalysis, Routineon 2021 Bilirubin, SemiQt,Ur Negative Normal NEG [facility] Comment on above: Performed By: #### B C #### [facility] [address] [place], [place] [phone] Forensic Specialist: Joelle Parker MD Blood, Urine TRACE Abnormal NEG [facility] Comment on above: Performed By: #### B C #### [facility] [address] [place], [place] [address]28[address] Forensic Specialist: Joelle Parker MD Clarity (U) Clear Normal CLEAR [facility] Comment on above: Performed By: #### B C #### [facility] [address] [place], [place] [phone] Forensic Specialist: Joelle Parker MD Color (U) Yellow Normal YEL [facility] Comment on above: Performed By: #### B C #### [facility] [address] [place], [place] [address] Forensic Specialist: Joelle Parker MD Glucose Ql (U) Negative Normal NEG [facility] Comment on above: Performed By: #### B C #### [facility] [address] [place], [place] [id number] Forensic Specialist: Joelle Parker MD Ketones Ql (U) Negative Normal NEG [facility] Comment on above: Performed By: #### B C #### [facility] [address] [place], [place] [phone] Forensic Specialist: Joelle Parker MD Leukocyte esterase Test strip Ql (U) Negative Normal NEG [facility] Comment on above: Performed By: #### B C #### [facility] [address] [place], [place] [address]683 Forensic Specialist: Joelle Parker MD Nitrite,Ur Negative Normal NEG [facility] Comment on above: Performed By: #### B C #### [facility] [address] [place], [place] [address]83 Forensic Specialist: Joelle Parker MD PH,Ur 6.5 Normal 5.0-9.0 [facility] Comment on above: Performed By: #### B C #### [facility] [address] [place], [place] [address] Forensic Specialist: Joelle Parker MD Protein Ql (U) Negative Normal NEG [facility] Comment on above: Performed By: #### B C #### [facility] [address] [place], [place] [address] Forensic Specialist: Joelle Parker MD Spec. [place],Ur <1.005 Low 1.010-1.020 [facility] Comment on above: Performed By: #### B C #### [facility] [address] [place] [address] Forensic Specialist: Joelle Parker MD Urobilinogen,Ur Normal Normal NORM [facility] Comment on above: Performed By: #### B C #### [facility] [address] [place], [place] [address] Forensic Specialist: Joelle Parker MD Urinalysis,Microon 2 ----- Normal [facility] Comment on above: Performed By: #### B C #### [facility] [address] [place], [place] [phone] Forensic Specialist: Joelle Parekr MD Bacteria TRACE Abnormal NONE [facility] Comment on above: Performed By: #### B C #### [facility] [address] [place], [place] [phone] Forensic Specialist: Joelle Parker MD Epithelial cells LM Ql (Urine sed) None Normal [address] [place] [address] Comment on above: Performed By: #### B C #### [facility] [address] [place] [address] Forensic Specialist: Joelle Parker MD Mucus Strands TRACE Abnormal NONE [facility] Comment on above: Performed By: #### B C #### [facility] [address] [place] [address] Forensic Specialist: Joelle Parker MD Urine RBC's 0 TO 2 Normal 0-2 [facility] Comment on above: Performed By: #### B C #### [facility] [address] [place], [place] [address] Forensic Specialist: Joelle Parker MD Urine WBC's 0 TO 2 Normal 0-5 [facility] Comment on above: Performed By: #### B C #### [facility] [address] [place], [place] [address]83 Forensic Specialist: Joelle Parker MD CBC with Auto Differentialon 05-05-2022 Absolute Eos # 0.03 [facility] Absolute Immature Granulocyte 0.06 [facility] Absolute Lymph # 0.87 Low [facility] Absolute [place] # 0.69 [facility] Basophils (Bld) [#/Vol] 0.04 10*3/uL [facility] Basophils/100 WBC (Bld) 0 % 0 - 2 % [facility] Eosinophils/100 WBC (Bld) 0 % Low 1 - 4 % [facility] Hematocrit (Bld) [Volume fraction] 33.7 % Low 40.7 - 50.3 % [facility] Hemoglobin (Bld) [Mass/Vol] 10.6 g/dL Low 13.0 - 17.0 g/dL [facility] Immature granulocytes/100 WBC (Bld) 0 % 0 [facility] Interpretation and review of laboratory results Abnormal [facility] Lymphocytes/100 WBC (Bld) 7 % Low 24 - 43 % [facility] MCH (RBC) [Entitic mass] 26.0 pg 25. 2 - 33.5 pg [facility] MCHC (RBC) [Mass/Vol] 31.5 g/dL 28.4 - 34.8 g/dL [facility] MCV (RBC) [Entitic vol] 82.8 fL 82.6 - 102.9 fL [facility] Monocytes/100 WBC (Bld) 5 % 3 - 12 % [facility] NRBC Automated 0.0 0.0 per 100 WBC [facility] Platelet distribution width (Bld) [Ratio] 15.7 % High 11.8 - 14.4 % [facility] Platelet mean volume (Bld) [Entitic vol] 8.9 fL 8.1 - 13.5 fL [facility] Platelets (Bld) [#/Vol] 196 10*3/uL [facility] RBC (Bld) [#/Vol] 4.07 10*6/uL Low 4.21 - 5.7 7 m/uL [facility] Segmented neutrophils/100 WBC (Bld) 88 % High 36 - 65 % [facility] Segs Absolute 11.77 High [facility] WBC (Bld) [#/Vol] 13.5 10*3/uL High [facility] CBC with Diffon 05-05-2022 Abs. Basophil 0.04 k/uL Normal 0.00-0.20 [facility] Comment on above: Performed By: #### C DP, CMPX #### [facility] [address] [place] [address] Forensic Specialist: Joelle Parker MD Abs.Imm.Granulocyte 0.06 k/uL Normal 0.00-0.30 [facility] Comment on above: Performed By: #### C DP, CMPX #### [facility] [address] [place], [place] [id number] Forensic Specialist: Joelle Parker MD Abs.Neutrophil (Seg) 11.77 k/uL High 1.50-8.10 [facility] Comment on above: Performed By: #### C DP, CMPX #### [address] [place], [facility] Forensic Specialist: Joelle Parker MD Basophils/100 WBC (Bld) 0 % Normal 0-2 [facility] Comment on above: Performed By: #### C DP, CMPX #### [address] [place], [facility] Forensic Specialist: Joelle Parker MD Eosinophils (Bld) [#/Vol] 0.03 10*3/uL Normal 0.00-0.44 [facility] Comment on above: Performed By: #### C DP, CMPX #### [address] [place], [facility] Forensic Specialist: Joelle Parker MD Eosinophils/100 WBC (Bld) 0 % Low 1-4 [facility] Comment on above: Performed By: #### C DP, CMPX #### [address] [place], [facility] Forensic Specialist: Joelle Parker MD Erythrocyte distribution width (RBC) [Ratio] 15.7 % High 11.8-14.4 [facility] Comment on above: Performed By: #### C DP, CMPX #### [address] [place], [facility] Forensic Specialist: Joelle Parker MD Hematocrit (Bld) [Volume fraction] 33.7 % Low 40.7-50.3 [facility] Comment on above: Performed By: #### C DP, CMPX #### [address] [place], [facility] Forensic Specialist: Joelle Parker MD Hemoglobin (Bld) [Mass/Vol] 10.6 g/dL Low 13.0-17.0 [facility] Comment on above: Performed By: #### C DP, CMPX #### [facility] [address] [place], [place] [phone] Forensic Specialist: Joelle Parker MD Immature granulocytes/100 WBC (Bld) 0 % Normal 0 [facility] Comment on above: Performed By: #### C DP, CMPX #### [facility] [address] [place], [place] [phone] Forensic Specialist: Joelle Parker MD Lymphocytes (Bld) [#/Vol] 0.87 10*3/uL Low 1.10-3.70 [facility] Comment on above: Performed By: #### C DP, CMPX #### [address] [place], [facility] Forensic Specialist: Joelle Parker MD Lymphocytes/100 WBC (Bld) 7 % Low 24-43 [facility] Comment on above: Performed By: #### C DP, CMPX #### [address] [place], [place] [phone] Forensic Specialist: Joelle Parker MD MCH (RBC) [Entitic mass] 26.0 pg Normal 25.2-33.5 [facility] Comment on above: Performed By: #### C DP, CMPX #### [address] [place] [address] Forensic Specialist: Joelle Parker MD MCHC (RBC) [Mass/Vol] 31.5 g/dL Normal 28.4-34.8 [facility] Comment on above: Performed By: #### C DP, CMPX #### [address] [place] [address] Forensic Specialist: Joelle Parker MD MCV (RBC) [Entitic vol] 82.8 fL Normal 82.6-102.9 [facility] Comment on above: Performed By: #### C DP, CMPX #### [facility] [address] [place], [place] [phone] Forensic Specialist: Joelle Parker MD Monocytes (Bld) [#/Vol] 0.69 10*3/uL Normal 0.10-1.20 [facility] Comment on above: Performed By: #### C DP, CMPX #### [facility] [address] [place], [place] [address]228[address] Forensic Specialist: Joelle Parker MD Monocytes/100 WBC (Bld) 5 % Normal 3-12 [facility] Comment on above: Performed By: #### C DP, CMPX #### [address] [place], [place] 3248483 Forensic Specialist: Joelle Parker MD Neutrophil (Seg) 88 % High 36-65 [facility] Comment on above: Performed By: #### C DP, CMPX #### [address] [place], [place] [id number] Forensic Specialist: Joelle Parker MD NRBC Automated 0.0 per 100 WBC Normal 0.0 [facility] Comment on above: Performed By: #### C DP, CMPX #### [address] [place], [place] [phone] Forensic Specialist: Joelle Parker MD Platelet mean volume (Bld) [Entitic vol] 8.9 fL Normal 8.1-13.5 [facility] Comment on above: Performed By: #### C DP, CMPX #### [address] [place] [address] Forensic Specialist: Joelle Parker MD Platelets (Bld) [#/Vol] 196 10*3/uL Normal 138-453 [facility] Comment on above: Performed By: #### C DP, CMPX #### [facility] [address] [place], [place] [address] Forensic Specialist: Joelle Parker MD RBC (Bld) [#/Vol] 4.07 10*6/uL Low 4.21-5.77 [facility] Comment on above: Performed By: #### C DP, CMPX #### [facility] [address] [place], [place] [address] Forensic Specialist: Joelle Parker MD WBC (Bld) [#/Vol] 13.5 10*3/uL High 3.5-11.3 [facility] Comment on above: Performed By: #### C DP, CMPX #### [facility] [address] [place], [place] 14[address]83 Forensic Specialist: Joelle Parker MD CT ANKLE LEFT W [...] Erasmo Domínguez MD 05/05/22 Final result Normal [facility] Chronic erosive changes of the posterosuperior aspect of the calcaneus at the Achilles tendon insertion with superimposed acute erosions not excluded. 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 These findings may be sterile although septic bursitis and osteomyelitis cannot be excluded. No soft tissue gas. [facility] RIS CONSOLIDATED EXAMINATION: CT OF [...] visualized aspects of the midfoot are unremarkable. [facility] Erasmo Wiseman MD - 05/05/2022 [...] cannot be excluded. No soft tissue gas. [facility] [employer] Work Phone: Radiology Study observation (narrative) [facility] Work Phone: CT ANKLE LEFT W CONTRASTOrde red By: Erasmo Domínguez on 05-05-2022 [facility] Work Phone: Comp Metabolic Pr/rfx MGon 0 05-05-2022 (cont.) Normal [facility] Comment on above: Result Comment: Aver age GFR for 40-49 years old: 99 mL/min/1.73sq m Chronic Kidney Disease: <60 mL/min/1.73sq m Kidney failure: <15 mL/min/1.73sq m eGFR calculated using average adult body mass. Additional eGFR calculator available at: http://www.Intematix/multiple_crcl_2011.htm Performed By: #### C DP, CMPX #### [facility] [address] [place] [address] [place] [address] Forensic Specialist: Joelle Parker MD Albumin/Glob Ratio 0.8 Low 1.0-2.5 [facility] Comment on above: Performed By: #### C DP, CMPX #### [facility] [address] [place] [address] [place] [place], [place] [id number] Forensic Specialist: Joelle Parker MD Alkaline Phos 82 U/L Normal 40-129 [facility] Comment on above: Performed By: #### C DP, CMPX #### [facility] [address] [place] [address] Forensic Specialist: Joelle Parker MD BUN/CRE Ratio 10 Normal 9-20 [facility] Comment on above: Performed By: #### C DP, CMPX #### [facility] [address] [place] [address] Forensic Specialist: Joelle Parker MD GFR, Amer >60 Normal >60 [facility] Comment on above: Performed By: #### C DP, CMPX #### [facility] [address] [place] [address] Forensic Specialist: Joelle Parker MD GFR,non Amer >60 Normal >60 [facility] Comment on above: Performed By: #### C DP, CMPX #### [facility] [address] [place] [address] Forensic Specialist: Joelle Parker MD Protein [Mass/Vol] 7.9 g/dL Normal 6.4-8.3 [facility] Comment on above: Performed By: #### C DP, CMPX #### [address] [place] [address] Forensic Specialist: Joelle Parker MD Staging: Normal [facility] Comment on above: Result Comment: Stag e 1: Some kidney damage normal GFR Stage 2: Mild kidney damage GFR 60-89 Stage 3: Moderate kidney damage GFR 30-59 Stage 4: Severe kidney damage GFR 15-29 Stage 5: Severe kidney damage GFR <15 ESRD - chronic treatment by dialysis or transplant Performed By: #### C DP, CMPX #### [address] [place] [address] Forensic Specialist: Joelle Parker MD Urea nitrogen [Mass/Vol] 7 mg/dL Normal 6-20 [facility] Comment on above: Performed By: #### C DP, CMPX #### [facility] [address] [place] [address] Forensic Specialist: Joelle Parker MD Albumin [Mass/Vol] 3.4 g/dL Low 3.5-5.2 [facility] Comment on above: Performed By: #### C DP, CMPX #### [facility] [address] [place] [address] Forensic Specialist: Joelle Parker MD ALT [Catalytic activity/Vol] 17 U/L Normal 5-41 [facility] Comment on above: Performed By: #### C DP, CMPX #### [address] [place] [address] Forensic Specialist: Joelle Parker MD Anion gap [Moles/Vol] 9 mmol/L Normal 9-17 [facility] Comment on above: Performed By: #### C DP, CMPX #### [address] [place], [place] [id number] Forensic Specialist: Joelle Parker MD AST [Catalytic activity/Vol] 15 U/L Normal <40 [facility] Comment on above: Performed By: #### C DP, CMPX #### [address] [place], [place] [id number] Forensic Specialist: Joelle Parker MD Bilirubin [Mass/Vol] 0.53 mg/dL Normal 0.3-1.2 [facility] Comment on above: Performed By: #### C DP, CMPX #### [address] [place], [place] [id number] Forensic Specialist: Joelle Parker MD Calcium [Mass/Vol] 9.1 mg/dL Normal 8.6-10.4 [facility] Comment on above: Performed By: #### C DP, CMPX #### [address] [place], [place] [id number] Forensic Specialist: Joelle Parker MD Chloride [Moles/Vol] 100 mmol/L Normal 98-107 [facility] Comment on above: Performed By: #### C DP, CMPX #### [address] [place] [address] Forensic Specialist: Joelle Parker MD CO2 [Moles/Vol] 25 mmol/L Normal 20-31 [facility] Comment on above: Performed By: #### C DP, CMPX #### [facility] [address] [place] [address] Forensic Specialist: Joelle Parker MD Creatinine [Mass/Vol] 0.72 mg/dL Normal 0.70-1.20 [facility] Comment on above: Performed By: #### C DP, CMPX #### [address] [place] [address] Forensic Specialist: Joelle Parker MD Glucose [Mass/Vol] 111 mg/dL High 70-99 [facility] Comment on above: Performed By: #### C DP, CMPX #### [address] [place] [address] Forensic Specialist: Joelle Parker MD Potassium [Moles/Vol] 3.6 mmol/L Low 3.7-5.3 [facility] Comment on above: Performed By: #### C DP, CMPX #### [address] [place] [address] Forensic Specialist: Joelle Parker MD Sodium [Moles/Vol] 134 mmol/L Low 135-144 [facility] Comment on above: Performed By: #### C DP, CMPX #### [address] [place] [address] Forensic Specialist: Joelle Parker MD Comprehensive Metabolic Pane l w/ Reflex to MGon 05-05-2022 Albumin/Globulin [Mass ratio] 0.8 {ratio} Low [facility] ALP (Bld) [Catalytic activity/Vol] 82 U/L 40 - 129 U/L [facility] Free PSA/Total PSA [Mass fraction] 7.9 g/dL 6.4 - 8.3 g/dL [facility] GFR >60 >60 mL/min [facility] GFR Non- >60 >60 mL/min [facility] Interpretation and review of laboratory results Abnormal [facility] Urea nitrogen (BldV) [Mass/Vol] 7 mg/dL 6 - 20 mg/dL [facility] Urea nitrogen/Creatinine (Bld) [Mass ratio] 10 [facility] Laboratory - Chemistry and C hemistry - challengeon 05-05-2022 GFR/1.73 sq M.predicted MDRD (S/P/Bld) [Vol rate/Area] [facility] Comment on above: Average GFR for 40-4 9 years old: 99 mL/min/1.73sq m Chronic Kidney Disease: <60 mL/min/1.73sq m Kidney failure: <15 mL/min/1.73sq m eGFR calculated using average adult body mass. Additional eGFR calculator available at: http://www.Intematix/multiple_crcl_2012.htm Stage 1: Some kidney damage normal GFR Stage 2: Mild kidney damage GFR 60-89 Stage 3: Moderate kidney damage GFR 30-59 Stage 4: Severe kidney damage GFR 15-29 Stage 5: Severe kidney damage GFR <15 ESRD - chronic treatment by dialysis or transplant Lactate, Sepsison 05-05-2022 Lactic Acid, Sepsis 1.3 mmol/L Normal 0.5-1.9 [facility] Comment on above: Performed By: #### L ACDS #### [facility] [address] [place] [address] Forensic Specialist: Joelel Parker MD Lactic Acid, Sepsis 1.3 mmol/L 0.5 - 1. 9 mmol/L [facility] CT CHEST WO CONTRASTon 02-14 New [...] 02/14/2022to be communicated to a licensed caregiver. [facility] RIS CONSOLIDATED EXAMINATION: CT OF THE CHEST WITHOUT [...] base. Upper Abdomen: Unremarkable Soft Tissues/Bones: Unremarkable [facility] RIS CONSOLIDATED Hank Red MD - 02/14/2022 EXAMINATION: [...] 02/14/2022to be communicated to a licensed caregiver. [employer] Work Phone: Radiology Study observation (narrative) [employer] Work Phone: CT CHEST WO CONTRASTOrdered By: Hank Red on 02-14-2022 [employer] Work Phone: ECHO Complete 2D W Doppler W Coloron 02-14-2022 [facility] Transthoracic Echocardiography Report (TTE) Patient Name COTY Date of Study 02/14/2022 TIP Plata Date of 1980 Gender Male Age 42 year(s) Race Room Number Height: 72 inch, 182.88 cm Corporate ID [id number] Weight: 174 pounds, 78.9 kg # Patient Acct [id number] BSA: 2.01 m^2 BMI: 23.6 kg/m^2 # MR # [id number] Investigator Elva Dejesus Interpreting Physician Alec Cheung Fellow Referring Nurse Practitioner Interpreting Referring Physician Tip Parker, Fellow BATCHER OPERATOR-CHIN STRAP CUTTER Type of Study TTE procedure:2D Echocardiogram, M-Mode, Doppler, Color Doppler. Procedure Date Date: 02/14/2022 Start: 01:14 PM Study Location: [facility] Technical Quality: Fair visualization Indications:Endocardi tis, [...] Gradient: 7.4 mmHg (more content not included)... [facility] - 02/14/2022 [facility] Transthoracic Echocardiography Report (TTE) Patient Name COTY Date of Study 02/14/2022 TIP A Date of 1980 Gender Male Age 42 year(s) Race Room Number Height: 72 inch, 182.88 cm Corporate ID [id number] Weight: 174 pounds, 78.9 kg # Patient Acct [id number] BSA: 2.01 m^2 BMI: 23.6 kg/m^2 # MR # [id number] Investigator Elva Dejesus Interpreting Physician Alec Cheung Fellow Referring Nurse Practitioner Interpreting Referring Physician Tip Parker, Fellow BATCHER OPERATOR-CHIN STRAP CUTTER Type of Study TTE procedure:2D Echocardiogram, M-Mode, Doppler, Color Doppler. Procedure Date Date: 02/14/2022 Start: 01:14 PM Study Location: [facility] Technical Quality: Fair visualization Indications:Endocardi tis, [...] 3.57 mmHg Es (more content not included)... [employer] Phone: ECHO Complete 2D W Doppler W ColorOrdered By: Alec Cheung on 02-14-2022 [employer] Phone: Basic Metabolic Panel w/ Ref rebecca to MGon 01-30-2022 Anion gap [Moles/Vol] 8 mmol/L Low 9 - 17 mmol/L [facility] Calcium [Mass/Vol] 7.8 mg/dL Low 8.6 - 10. 4 mg/dL [facility] Chloride [Moles/Vol] 103 mmol/L 98 - 10 7 mmol/L [facility] CO2 [Moles/Vol] 23 mmol/L 20 - 31 mmol/L [facility] Creatinine [Mass/Vol] 0.88 mg/dL 0.70 - 1.20 mg/dL [facility] GFR >60 >60 mL/min [facility] GFR Non- >60 >60 mL/min [facility] GFR/1.73 sq M.predicted MDRD (S/P/Bld) [Vol rate/Area] [facility] Comment on above: Average GFR for 40-4 9 years old: 99 mL/min/1.73sq m Chronic Kidney Disease: <60 mL/min/1.73sq m Kidney failure: <15 mL/min/1.73sq m eGFR calculated using average adult body mass. Additional eGFR calculator available at: http://www.Intematix/multiple_crcl_2011.htm Glucose [Mass/Vol] 155 mg/dL High 70 - 99 mg/dL [facility] Potassium [Moles/Vol] 3.9 mmol/L 3.7 - 5.3 mmol/L [facility] Sodium [Moles/Vol] 134 mmol/L Low 135 - 144 mmol/L [facility] Urea nitrogen (BldV) [Mass/Vol] 15 mg/dL 6 - 20 mg/dL [facility] CBC with Auto Differentialon 01-30-2022 Absolute Eos # 0.31 [facility] th Absolute Immature Granulocyte 0.10 [facility] Absolute Lymph # 1.35 [facility] alth Absolute [place] # 1.77 High [facility] lt Basophils (Bld) [#/Vol] 0.00 10*3/uL [facility] Basophils/100 WBC (Bld) 0 % 0 - 2 % [facility] Eosinophils/100 WBC (Bld) 3 % 1 - 4 % [facility] Hematocrit (Bld) [Volume fraction] 29.9 % Low 40.7 - 50.3 % [facility] Hemoglobin.gastrointesti nal spec 1 Ql (Stl) 10.2 g/dL Low 13.0 - 17.0 g/dL [facility] Immature granulocytes/100 WBC (Bld) 1 % High 0 [facility] Interpretation and review of laboratory results Abnormal [facility] Lymphocytes/100 WBC (Bld) 13 % Low 24 - 44 % [facility] MCH (RBC) [Entitic mass] 32.6 pg 25. 2 - 33.5 pg [facility] MCHC (RBC) [Mass/Vol] 34.1 g/dL 28.4 - 34.8 g/dL [facility] MCV (RBC) [Entitic vol] 95.5 fL 82.6 - 102.9 fL [facility] Monocytes/100 WBC (Bld) 17 % High 1 - 7 % M [place] [facility] Adis (Bld) [Interp] ANISOCYTOSIS PRESENT [facility] h NRBC Automated 0.0 0.0 per 100 WBC [facility] Platelet distribution width (Bld) [Ratio] 16.2 % High 11.8 - 14.4 % [facility] Platelets (Bld) [#/Vol] See Reflexed IPF Result [facility] RBC (Bld) [#/Vol] 3.13 10*6/uL Low 4.21 - 5.7 7 m/uL [facility] Segmented neutrophils/100 WBC (Bld) 66 % 36 - 66 % [facility] Segs Absolute 6.87 [facility] (Bld[facility] [#/Vol] 10.4 10*3/uL [facility] CKon 01-30-2022 CK [Catalytic activity/Vol] 26 U/L Low 39 - 308 U/L [facility] Hepatic Function Panelon Albumin [Mass/Vol] 1.8 g/dL Low 3.5 - 5.2 g/dL [facility] Albumin/Globulin [Mass ratio] 0.4 {ratio} Low [facility] ALP (Bld) [Catalytic activity/Vol] 42 U/L 40 - 129 U/L [facility] ALT [Catalytic activity/Vol] 15 U/L 5 - 41 U/L [facility] AST [Catalytic activity/Vol] 29 U/L <40 [facility] Bilirubin [Mass/Vol] 1.66 mg/dL High 0.3 - 1 .2 mg/dL [facility] Bilirubin, Indirect 0.96 mg/dL 0.00 - 1 .00 mg/dL [facility] Bilirubin.indirect [Mass/Vol] 0.70 mg/dL High <0.31 [facility] Free PSA/Total PSA [Mass fraction] 6.4 g/dL 6.4 - 8.3 g/dL [facility] Immature Platelet Fractionon 01-30-2022 Interpretation and review of laboratory results Abnormal [facility] Platelet, Fluorescence [address] [facility] Comment on above: ORDERED BY LAB Platelet, Immature Fraction 3.3 % 1.1 - 10.3 % [facility] Comment on above: ORDERED BY LAB [facility] [employer] No Panel Informationon 01-30 Interpretation and review of laboratory results Abnormal [facility] SURGICAL PATHOLOGY REPORTon 01-30-2022 Surgical Pathology Report [...] SURGICAL PATHOLOGY CONSULTATION Patient Name: TIP ANSARI [facility] [place] Rec: [id number] Path Number: [id number] [facility] [employer] [facility] ANATOMIC PATHOLOGY [address] [place] [address]. [place], [place] [address] [facility] Basic Metabolic Panel w/ Ref rebecca to MGon 01-29-2022 Anion gap [Moles/Vol] 10 mmol/L 9 - 17 mmol/L [facility] Calcium [Mass/Vol] 8.6 mg/dL 8.6 - 10. 4 mg/dL [facility] Chloride [Moles/Vol] 108 mmol/L High 98 - 10 7 mmol/L [employer] CO2 [Moles/Vol] 20 mmol/L 20 - 31 mmol/L [facility] Creatinine [Mass/Vol] 0.85 mg/dL 0.70 - 1.20 mg/dL [employer] GFR >60 >60 mL/min [employer] GFR Non- >60 >60 mL/min [employer] GFR/1.73 sq M.predicted MDRD (S/P/Bld) [Vol rate/Area] [facility] Comment on above: Average GFR for 40-4 9 years old: 99 mL/min/1.73sq m Chronic Kidney Disease: <60 mL/min/1.73sq m Kidney failure: <15 mL/min/1.73sq m eGFR calculated using average adult body mass. Additional eGFR calculator available at: http://www.[employer]ematix/multiple_crcl_2012.htm Glucose [Mass/Vol] 95 mg/dL 70 - 99 mg/dL [facility] Potassium [Moles/Vol] 4.2 mmol/L 3.7 - 5.3 mmol/L [facility] Sodium [Moles/Vol] 138 mmol/L 135 - 144 mmol/L [facility] Urea nitrogen (BldV) [Mass/Vol] 31 mg/dL High 6 - 20 mg/dL [facility] CBC with Auto Differentialon 01-29-2022 Absolute Eos # 0.27 [facility] th Absolute Immature Granulocyte 0.05 [facility] Absolute Lymph # 1.01 Low [facility] alth Absolute [place] # 1.01 [facility] lth Basophils (Bld) [#/Vol] 0.05 10*3/uL [facility] Basophils/100 WBC (Bld) 1 % 0 - 2 % [facility] Eosinophils/100 WBC (Bld) 3 % 1 - 4 % [facility] Hematocrit (Bld) [Volume fraction] 29.8 % Low 40.7 - 50.3 % [facility] Hemoglobin.gastrointesti nal spec 1 Ql (Stl) 9.4 g/dL Low 13.0 - 17.0 g/dL [facility] Immature granulocytes/100 WBC (Bld) 1 % High 0 [facility] Interpretation and review of laboratory results Abnormal [facility] Lymphocytes/100 WBC (Bld) 10 % Low 24 - 43 % [facility] MCH (RBC) [Entitic mass] 28.0 pg 25. 2 - 33.5 pg [facility] MCHC (RBC) [Mass/Vol] 31.5 g/dL 28.4 - 34.8 g/dL [facility] MCV (RBC) [Entitic vol] 88.7 fL 82.6 - 102.9 fL [facility] Monocytes/100 WBC (Bld) 10 % 3 - 12 % M [place] NRBC Automated 0.0 0.0 per 100 WBC [facility] Platelet distribution width (Bld) [Ratio] 17.4 % High 11.8 - 14.4 % [facility] Platelet mean volume (Bld) [Entitic vol] 8.7 fL 8.1 - 13.5 fL [facility] Platelets (Bld) [#/Vol] 131 10*3/uL Low [facility] RBC (Bld) [#/Vol] 3.36 10*6/uL Low 4.21 - 5.7 7 m/uL [facility] RBC (Bld) [#/Vol] [facility]OC[facility]TOSIS PRESENT [facility] Segmented neutrophils/100 WBC (Bld) 76 % High 36 - 65 % [facility] Segs Absolute 7.60 [facility] WBC (Bld) [#/Vol] 10.0 10*3/uL [facility] [employer] [facility] CKon 01-29-2022 CK [Catalytic activity/Vol] 10 U/L Low 39 - 308 U/L [facility] EKG 12 LeadOrdered By: Dorothy Pink on 01-29-2022 Atrial Rate 139 BPM [employer] Work Phone: [phone] P [place] 54 degrees [employer] Work Phone: P-R Interval 136 ms [employer] Work Phone: Q-T Interval 278 ms [employer] Work Phone: QRS Duration 78 ms [employer] Work Phone: QTc Calculation (Bazett) 423 ms [employer] Work Phone: R [place] 65 degrees [employer] Work Phone: T [place] 51 degrees [employer] Work Phone: Ventricular Rate 139 BPM [employer] Work Phone: [employer] Work Phone: EKG 12 Leadon 01-29-2022 Sinus tachycardia Otherwise normal ECG No previous ECGs available [facility] STDorothy Vega MD - 01/29/2022 Sinus tachycardia Otherwise normal ECG No previous ECGs available [facility] Work Phone: Hepatic Function Panelon Albumin [Mass/Vol] 2.6 g/dL Low 3.5 - 5.2 g/dL [employer] Albumin/Globulin [Mass ratio] 0.7 {ratio} Low [facility] [employer] ALP (Bld) [Catalytic activity/Vol] 88 U/L 40 - 129 U/L [employer] ALT [Catalytic activity/Vol] 39 U/L 5 - 41 U/L [facility] [employer] AST [Catalytic activity/Vol] 23 U/L <40 [facility] [employer] Bilirubin [Mass/Vol] 0.38 mg/dL 0.3 - 1 .2 mg/dL [facility] [employer] Bilirubin, Indirect 0.27 mg/dL 0.00 - 1 .00 mg/dL [facility] [employer] Bilirubin.indirect [Mass/Vol] 0.11 mg/dL <0.31 [facility] [employer] Free PSA/Total PSA [Mass fraction] 6.2 g/dL Low 6.4 - 8.3 g/dL [facility] [employer] No Panel Informationon 01-29 Interpretation and review of laboratory results Abnormal [facility] [employer] POC Glucose Fingerstickon Glucose [Mass/Vol] 100 mg/dL 75 - 110 mg/dL [facility] [employer] Basic Metabolic Panel w/ Ref rebecca to MGon 01-28-2022 Anion gap [Moles/Vol] 14 mmol/L 9 - 17 mmol/L [facility] Calcium [Mass/Vol] 8.9 mg/dL 8.6 - 10. 4 mg/dL [facility] Chloride [Moles/Vol] 103 mmol/L 98 - 10 7 mmol/L [facility] CO2 [Moles/Vol] 20 mmol/L 20 - 31 mmol/L [facility] [employer] Creatinine [Mass/Vol] 0.98 mg/dL 0.70 - 1.20 mg/dL [employer] GFR >60 >60 mL/min [employer] GFR Non- >60 >60 mL/min [employer] GFR/1.73 sq M.predicted MDRD (S/P/Bld) [Vol rate/Area] [facility] Comment on above: Average GFR for 40-4 9 years old: 99 mL/min/1.73sq m Chronic Kidney Disease: <60 mL/min/1.73sq m Kidney failure: <15 mL/min/1.73sq m eGFR calculated using average adult body mass. Additional eGFR calculator available at: http://www.[employer]Stream/multiple_crcl_2012.htm Glucose [Mass/Vol] 153 mg/dL High 70 - 99 mg/dL [facility] Interpretation and review of laboratory results Abnormal [facility] Potassium [Moles/Vol] 3.5 mmol/L Low 3.7 - 5.3 mmol/L [facility] Sodium [Moles/Vol] 137 mmol/L 135 - 144 mmol/L [facility] Urea nitrogen (BldV) [Mass/Vol] 29 mg/dL High 6 - 20 mg/dL [facility] CBC with Auto Differentialon 01-28-2022 Absolute Eos # 0.24 [facility] th Absolute Immature Granulocyte 0.08 [facility] Absolute Lymph # 1.40 [facility] Absolute [place] # 0.46 [facility] Basophils (Bld) [#/Vol] 0.03 10*3/uL [facility] Basophils/100 WBC (Bld) 0 % 0 - 2 % [facility] Eosinophils/100 WBC (Bld) 3 % 1 - 4 % [facility] Hematocrit (Bld) [Volume fraction] 30.1 % Low 40.7 - 50.3 % [facility] Hemoglobin.gastrointesti nal spec 1 Ql (Stl) 9.4 g/dL Low 13.0 - 17.0 g/dL [facility] Immature granulocytes/100 WBC (Bld) 1 % High 0 [facility] Interpretation and review of laboratory results Abnormal [facility] Lymphocytes/100 WBC (Bld) 18 % Low 24 - 43 % [facility] MCH (RBC) [Entitic mass] 28.1 pg 25. 2 - 33.5 pg [facility] MCHC (RBC) [Mass/Vol] 31.2 g/dL 28.4 - 34.8 g/dL [facility] MCV (RBC) [Entitic vol] 90.1 fL 82.6 - 102.9 fL [facility] Monocytes/100 WBC (Bld) 6 % 3 - 12 % [facility] NRBC Automated 0.0 0.0 per 100 WBC [facility] Platelet distribution width (Bld) [Ratio] 16.6 % High 11.8 - 14.4 % [facility] Platelet mean volume (Bld) [Entitic vol] 8.8 fL 8.1 - 13.5 fL [facility] Platelets (Bld) [#/Vol] 178 10*3/uL [facility] RBC (Bld) [#/Vol] 3.34 10*6/uL Low 4.21 - 5.7 7 m/uL [facility] RBC (Bld) [#/Vol] ANISOCYTOSIS PRESENT [facility] Segmented neutrophils/100 WBC (Bld) 72 % High 36 - 65 % [facility] Segs Absolute 5.55 [facility] W[facility] (Bld) [#/Vol] 7.8 10*3/uL [facility] CKon 01-28-2022 CK [Catalytic activity/Vol] 8 U/L Low 39 - 308 U/L [facility] Interpretation and review of laboratory results Abnormal [facility] Culture, Blood 1on 2 Bacteria identified Cx Nom (Unsp spec) NO GROWTH 5 DAYS [facility] Special Requests RIGHT FOREARM 20ML [facility] Specimen Description .BLOOD [facility] Bacteria identified Cx Nom (Unsp spec) NO GROWTH 5 DAYS [facility] Special Requests RIGHT HAND 20ML [facility] Specimen Description .BLOOD [facility] Hepatic Function Panelon Albumin [Mass/Vol] 3 g/dL Low 3.5 - 5.2 g/dL [facility] Albumin/Globulin [Mass ratio] 0.9 {ratio} Low [facility] ALP (Bld) [Catalytic activity/Vol] 96 U/L 40 - 129 U/L [facility] ALT [Catalytic activity/Vol] 21 U/L 5 - 41 U/L [facility] AST [Catalytic activity/Vol] 10 U/L <40 [facility] Bilirubin [Mass/Vol] mg/dL Low 0.3 - 1 .2 mg/dL [facility] Bilirubin, Indirect Can not be calculated 0.00 - 1.00 mg/dL [facility] Bilirubin.indirect [Mass/Vol] mg/dL <0.31 mg/dL [facility] Free PSA/Total PSA [Mass fraction] 6.4 g/dL 6.4 - 8.3 g/dL [facility] Interpretation and review of laboratory results Abnormal [facility] Lactic Acidon 01-28-2022 Lactic Acid, Whole Blood 1.6 mmol/L 0.7 - 2.1 mmol/L [facility] Interpretation and review of laboratory results Abnormal [facility] Lactic Acid, Whole Blood 4.9 mmol/L High 0.7 - 2.1 mmol/L [facility] Magnesiumon 01-28-2022 Magnesium [Mass/Vol] 1.7 mg/dL 1.6 - 2 .6 mg/dL [facility] Basic Metabolic Panel w/ Ref rebecca to MGon 01-27-2022 Anion gap [Moles/Vol] 11 mmol/L 9 - 17 mmol/L [facility] Calcium [Mass/Vol] 9.1 mg/dL 8.6 - 10. 4 mg/dL [facility] Chloride [Moles/Vol] 101 mmol/L 98 - 10 7 mmol/L [facility] CO2 [Moles/Vol] 24 mmol/L 20 - 31 mmol/L [facility] Creatinine [Mass/Vol] 0.93 mg/dL 0.70 - 1.20 mg/dL [facility] GFR >60 >60 mL/min [facility] GFR Non- >60 >60 mL/min [facility] GFR/1.73 sq M.predicted MDRD (S/P/Bld) [Vol rate/Area] [facility] Comment on above: Average GFR for 40-4 9 years old: 99 mL/min/1.73sq m Chronic Kidney Disease: <60 mL/min/1.73sq m Kidney failure: <15 mL/min/1.73sq m eGFR calculated using average adult body mass. Additional eGFR calculator available at: http://www.Intematix/multiple_crcl_2011.htm Glucose [Mass/Vol] 187 mg/dL High 70 - 99 mg/dL [facility] Potassium [Moles/Vol] 4.4 mmol/L 3.7 - 5.3 mmol/L [facility] Sodium [Moles/Vol] 136 mmol/L 135 - 144 mmol/L [facility] Urea nitrogen (BldV) [Mass/Vol] 25 mg/dL High 6 - 20 mg/dL [facility] CBC with Auto Differentialon 01-27-2022 Absolute Eos # 0.20 [facility] Absolute Immature Granulocyte 0.00 [facility] Absolute Lymph # 1.39 [facility] alth Absolute [place] # 0.79 [facility] Basophils (Bld) [#/Vol] 0.00 10*3/uL [facility] Basophils/100 WBC (Bld) 0 % 0 - 2 % [facility] Eosinophils/100 WBC (Bld) 1 % 1 - 4 % [facility] Hematocrit (Bld) [Volume fraction] 31.8 % Low 40.7 - 50.3 % [facility] Hemoglobin.gastrointesti nal spec 1 Ql (Stl) 10.1 g/dL Low 13.0 - 17.0 g/dL [facility] Immature granulocytes/100 WBC (Bld) 0 % 0 [facility] Interpretation and review of laboratory results Abnormal [facility] Lymphocytes/100 WBC (Bld) 7 % Low 24 - 44 % [facility] MCH (RBC) [Entitic mass] 27.5 pg 25. 2 - 33.5 pg [facility] MCHC (RBC) [Mass/Vol] 31.8 g/dL 28.4 - 34.8 g/dL [facility] MCV (RBC) [Entitic vol] 86.6 fL 82.6 - 102.9 fL [facility] Monocytes/100 WBC (Bld) 4 % 1 - 7 % [facility] Morphology Adis (Bld) [Interp] ANISOCYTOSIS PRESENT [facility] NRBC Automated 0.0 0.0 per 100 WBC [facility] Platelet distribution width (Bld) [Ratio] 16.1 % High 11.8 - 14.4 % [facility] Platelet mean volume (Bld) [Entitic vol] 9.2 fL 8.1 - 13.5 fL [facility] Platelets (Bld) [#/Vol] 201 10*3/uL [facility] RBC (Bld) [#/Vol] 3.67 10*6/uL Low 4.21 - 5.7 7 m/uL [facility] Segmented neutrophils/100 WBC (Bld) 88 % High 36 - 66 % [facility] Segs [facility] [#/Vol] 19.8 10*3/uL High [facility] CKon 01-27-2022 CK [Catalytic activity/Vol] 11 U/L Low 39 - 308 U/L [facility] Hepatic Function Panelon Albumin [Mass/Vol] 3.1 g/dL Low 3.5 - 5.2 g/dL [facility] Albumin/Globulin [Mass ratio] 0.8 {ratio} Low [facility] [employer] ALP (Bld) [Catalytic activity/Vol] 87 U/L 40 - 129 U/L [employer] ALT [Catalytic activity/Vol] 27 U/L 5 - 41 U/L [facility] AST [Catalytic activity/Vol] 14 U/L <40 [facility] [employer] Bilirubin [Mass/Vol] 0.30 mg/dL 0.3 - 1 .2 mg/dL [facility] [employer] Bilirubin, Indirect 0.21 mg/dL 0.00 - 1 .00 mg/dL [facility] Bilirubin.indirect [Mass/Vol] 0.09 mg/dL <0.31 [facility] [employer] Free PSA/Total PSA [Mass fraction] 7.2 g/dL 6.4 - 8.3 g/dL [facility] [employer] No Panel Informationon 01-27 Interpretation and review of laboratory results Abnormal [facility] Basic Metabolic Panel w/ Ref rebecca to MGon 01-26-2022 Anion gap [Moles/Vol] 12 mmol/L 9 - 17 mmol/L [facility] [employer] Calcium [Mass/Vol] 9.5 mg/dL 8.6 - 10. 4 mg/dL [facility] [employer] Chloride [Moles/Vol] 104 mmol/L 98 - 10 7 mmol/L [facility] [employer] CO2 [Moles/Vol] 21 mmol/L 20 - 31 mmol/L [facility] Creatinine [Mass/Vol] 0.95 mg/dL 0.70 - 1.20 mg/dL [facility] [employer] GFR >60 >60 mL/min [facility] [employer] GFR Non- >60 >60 mL/min [facility] GFR/1.73 sq M.predicted MDRD (S/P/Bld) [Vol rate/Area] [facility] Comment on above: Average GFR for 40-4 9 years old: 99 mL/min/1.73sq m Chronic Kidney Disease: <60 mL/min/1.73sq m Kidney failure: <15 mL/min/1.73sq m eGFR calculated using average adult body mass. Additional eGFR calculator available at: http://www.[employer].ScoreStream/multiple_crcl_2011.htm Glucose [Mass/Vol] 123 mg/dL High 70 - 99 mg/dL [facility] Potassium [Moles/Vol] 4.2 mmol/L 3.7 - 5.3 mmol/L [facility] Sodium [Moles/Vol] 137 mmol/L 135 - 144 mmol/L [facility] Urea nitrogen (BldV) [Mass/Vol] 26 mg/dL High 6 - 20 mg/dL [facility] CBC with Auto Differentialon 01-26-2022 Absolute Eos # 0.42 [facility] th Absolute Immature Granulocyte 0.09 [facility] Absolute Lymph # 1.63 [facility] alth Absolute [place] # 1.11 [facility] Basophils (Bld) [#/Vol] 0.07 10*3/uL [facility] Basophils/100 WBC (Bld) 1 % 0 - 2 % [facility] Eosinophils/100 WBC (Bld) 5 % High 1 - 4 % [facility] Hematocrit (Bld) [Volume fraction] 33.3 % Low 40.7 - 50.3 % [facility] Hemoglobin.gastrointesti nal spec 1 Ql (Stl) 10.7 g/dL Low 13.0 - 17.0 g/dL [facility] Immature granulocytes/100 WBC (Bld) 1 % High 0 [facility] Interpretation and review of laboratory results Abnormal [facility] Lymphocytes/100 WBC (Bld) 20 % Low 24 - 43 % [facility] MCH (RBC) [Entitic mass] 27.8 pg 25. 2 - 33.5 pg [facility] MCHC (RBC) [Mass/Vol] 32.1 g/dL 28.4 - 34.8 g/dL [facility] MCV (RBC) [Entitic vol] 86.5 fL 82.6 - 102.9 fL [facility] Monocytes/100 WBC (Bld) 14 % High 3 - 12 % [facility] NRBC Automated 0.0 0.0 per 100 WBC [facility] Platelet distribution width (Bld) [Ratio] 16.6 % High 11.8 - 14.4 % [facility] Platelet mean volume (Bld) [Entitic vol] 8.7 fL 8.1 - 13.5 fL [facility] Platelets (Bld) [#/Vol] 183 10*3/uL [facility] RBC (Bld) [#/Vol] 3.85 10*6/uL Low 4.21 - 5.7 7 m/uL [facility] RBC (Bld) [#/Vol] ANISOCYTOSIS PRESENT [facility] Segmented neutrophils/100 WBC (Bld) 59 % 36 - 65 % [facility] Segs Absolute 4.87 [facility] WBC (Bld) [#/Vol] 8.2 10*3/uL [facility] CKon 01-26-2022 CK [Catalytic activity/Vol] 10 U/L Low 39 - 308 U/L [facility] Culture, Blood 1on 2 Bacteria identified Cx Nom (Unsp spec) NO GROWTH 5 DAYS [facility] Special Requests UNKNOWN [facility] Specimen Description .BLOOD [facility] FLUORO FOR SURGICAL PROCEDUR ESon 01-26-2022 Radiology exam is complete. No Radiologist dictation. Please follow up with ordering provider. [facility] Hepatic Function Panelon Albumin [Mass/Vol] 3.1 g/dL Low 3.5 - 5.2 g/dL [facility] Albumin/Globulin [Mass ratio] 0.6 {ratio} Low [facility] ALP (Bld) [Catalytic activity/Vol] 99 U/L 40 - 129 U/L [facility] ALT [Catalytic activity/Vol] 30 U/L 5 - 41 U/L [facility] AST [Catalytic activity/Vol] 19 U/L <40 [facility] Bilirubin [Mass/Vol] 0.21 mg/dL Low 0.3 - 1 .2 mg/dL [facility] Bilirubin, Indirect Can not be calculated 0.00 - 1.00 mg/dL [facility] Bilirubin.indirect [Mass/Vol] mg/dL <0.31 mg/dL [facility] Free PSA/Total PSA [Mass fraction] 8.0 g/dL 6.4 - 8.3 g/dL [facility] No Panel Informationon 01-26 Interpretation and review of laboratory results Abnormal [facility] US Heart Transesophagealon 0 01-26-2022 Transesophageal Echocardiography Report (GIANFRANCO) Patient Name COTY MIRANDA Date of Study 01/24/2022 A Date of 1980 Gender Male Age 42 year(s) Race Room Number 2009 Height: 72 inch, 182.88 cm Corporate ID [id number] Weight: 161 pounds, 73 kg # Patient Acct [id number] BSA: 1.94 m^2 BMI: 21.84 # kg/m^2 MR # [id number] Investigator Karin Denis Interpreting Physician Gordo Rueda [employer] Fellow Gaye Lewis Referring Nurse Practitioner Interpreting Referring Physician MARISOL ANDREA, * Fellow Type of Study GIANFRANCO procedure:2D echocardiogram, Color Doppler, TRANSESOPHAGEAL ECHO. Procedure Date Date: 01/24/2022 Start: 10:42 AM Study Location: [facility] Technical Quality: Good visualization Indications:Endocardi tis. [...] Miscellaneous The aorta shows mild plaque formation. [facility] Gauri Guerrero MD - 01/26/2022 Transesophageal Echocardiography Report (GIANFRANCO) Patient Name COTY MIARNDA Date of Study 01/24/2022 A Date of 1980 Gender Male Age 42 year(s) Race Room Number 2010 Height: 72 inch, 182.88 cm Corporate ID [id number] Weight: 161 pounds, 73 kg # Patient Acct [id number] BSA: 1.94 m^2 BMI: 21.84 # kg/m^2 MR # [id number] Investigator Karin Denis Interpreting Physician Gordo Rueda [employer] Fellow Gaye Lewis Referring Nurse Practitioner Interpreting Referring Physician MARISOL ANDREA, Manny Fellow Type of Study GIANFRANCO procedure:2D echocardiogram, Color Doppler, TRANSESOPHAGEAL ECHO. Procedure Date Date: 01/24/2022 Start: 10:42 AM Study Location: [facility] Technical Quality: Good visualization Indications:Endocardi tis. [...] Miscellaneous The aorta shows mild plaque formation. [facility] Work Phone: US Heart TransesophagealOrde red By: Gauri Guerrero on 01-26-2022 [facility] Work Phone: Basic Metabolic Panel w/ Ref rebecca to MGon 01-25-2022 Anion gap [Moles/Vol] 14 mmol/L 9 - 17 mmol/L [facility] Calcium [Mass/Vol] 9.0 mg/dL 8.6 - 10. 4 mg/dL [facility] Chloride [Moles/Vol] 105 mmol/L 98 - 10 7 mmol/L [facility] CO2 [Moles/Vol] 20 mmol/L 20 - 31 mmol/L [facility] Creatinine [Mass/Vol] 0.82 mg/dL 0.70 - 1.20 mg/dL [facility] GFR >60 >60 mL/min [employer] GFR Non- >60 >60 mL/min [facility] GFR/1.73 sq M.predicted MDRD (S/P/Bld) [Vol rate/Area] [facility] Comment on above: Average GFR for 40-4 9 years old: 99 mL/min/1.73sq m Chronic Kidney Disease: <60 mL/min/1.73sq m Kidney failure: <15 mL/min/1.73sq m eGFR calculated using average adult body mass. Additional eGFR calculator available at: http://www.[employer].ScoreStream/multiple_crcl_2012.htm Glucose [Mass/Vol] 109 mg/dL High 70 - 99 mg/dL [facility] Potassium [Moles/Vol] 4.4 mmol/L 3.7 - 5.3 mmol/L [facility] Sodium [Moles/Vol] 139 mmol/L 135 - 144 mmol/L [facility] Urea nitrogen (BldV) [Mass/Vol] 19 mg/dL 6 - 20 mg/dL [facility] CBC with Auto Differentialon 01-25-2022 Absolute Eos # 0.34 [facility] th Absolute Immature Granulocyte 0.07 [facility] Absolute Lymph # 1.54 [facility] alth Absolute [place] # 1.01 [facility] Basophils (Bld) [#/Vol] 0.04 10*3/uL [facility] Basophils/100 WBC (Bld) 0 % 0 - 2 % [facility] Eosinophils/100 WBC (Bld) 4 % 1 - 4 % [facility] Hematocrit (Bld) [Volume fraction] 34.5 % Low 40.7 - 50.3 % [facility] Hemoglobin.gastrointesti nal spec 1 Ql (Stl) 10.6 g/dL Low 13.0 - 17.0 g/dL [facility] Immature granulocytes/100 WBC (Bld) 1 % High 0 [facility] Interpretation and review of laboratory results Abnormal [facility] Lymphocytes/100 WBC (Bld) 17 % Low 24 - 43 % [facility] MCH (RBC) [Entitic mass] 27.5 pg 25. 2 - 33.5 pg [facility] MCHC (RBC) [Mass/Vol] 30.7 g/dL 28.4 - 34.8 g/dL [facility] MCV (RBC) [Entitic vol] 89.6 fL 82.6 - 102.9 fL [facility] Monocytes/100 WBC (Bld) 11 % 3 - 12 % [facility] NRBC Automated 0.0 0.0 per 100 WBC [facility] Platelet distribution width (Bld) [Ratio] 16.6 % High 11.8 - 14.4 % [facility] Platelet mean volume (Bld) [Entitic vol] 9.2 fL 8.1 - 13.5 fL [facility] Platelets (Bld) [#/Vol] 189 10*3/uL [facility] RBC (Bld) [#/Vol] 3.85 10*6/uL Low 4.21 - 5.7 7 m/uL [facility] RBC (Bld) [#/Vol] ANISOCYTOSIS PRESENT [facility] Segmented neutrophils/100 WBC (Bld) 67 % High 36 - 65 % [facility] Segs Absolute 5.95 [facility] h WBC (Bld) [#/Vol] 9.0 10*3/uL [facility] CKon 01-25-2022 CK [Catalytic activity/Vol] 9 U/L Low 39 - 308 U/L [facility] Cult,Bloodon 01-25-2022 Cult,Blood Specimen Description .BLOOD Special Requests 5 ML R ELBOW Culture NO GROWTH 5 DAYS Report Status FINAL 01/25/2022 Normal [facility] Comment on above: Performed By: #### B C #### [facility] [address] [place] [address] Forensic Specialist: Joelle Parker MD Cult,Blood Specimen Description .BLOOD Special Requests 20 ML LEFT FOREARM Culture NO GROWTH 5 DAYS Report Status FINAL 01/25/2022 Normal [facility] Comment on above: Performed By: #### B C #### [facility] [address] [place] [address] Forensic Specialist: Joelle Parker MD Culture, Blood 1on 2 Bacteria identified Cx Nom (Unsp spec) Positive [facility] Bacteria identified Cx Nom (Unsp spec) DIRECT GRAM STAIN FROM BOTTLE: YEAST [facility] Bacteria identified Cx Nom (Unsp spec) Detected: Nathaniel albicans Detected: Methodology- Polymerase Chain Reaction (PCR) [facility] Bacteria identified Cx Nom (Unsp spec) NATHANIEL ALBICANS [facility] Bacteria identified Cx Nom (Unsp spec) (NOTE) Direct Gram Stain from bottle and Polymerase Chain Reaction (PCR) results called to and read back by: SRUTHI Sawyer RN AT 1925 ON 01/22/22. [facility] Special Requests 5ML UNK SITE [facility] Specimen Description .BLOOD [facility] Special Requests 5ML R HAND [facility]th Special Requests 5ML R WRIST [facility] Hepatic Function Panelon Albumin [Mass/Vol] 3 g/dL Low 3.5 - 5.2 g/dL [facility] Albumin/Globulin [Mass ratio] 0.7 {ratio} Low [facility] ALP (Bld) [Catalytic activity/Vol] 99 U/L 40 - 129 U/L [facility] ALT [Catalytic activity/Vol] 31 U/L 5 - 41 U/L [facility] AST [Catalytic activity/Vol] 21 U/L <40 [facility] Bilirubin [Mass/Vol] 0.20 mg/dL Low 0.3 - 1 .2 mg/dL [facility] Bilirubin, Indirect Can not be calculated 0.00 - 1.00 mg/dL [facility] Bilirubin.indirect [Mass/Vol] mg/dL <0.31 mg/dL [facility] Free PSA/Total PSA [Mass fraction] 7.5 g/dL 6.4 - 8.3 g/dL [facility] Infectious Disease Intervent ionon 01-25-2022 Intervention Targeted therapy [facility] 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 Prescribed IV Therapy= Multiple fdc IV Abx/Antifungals Peripheral ultrasound assessment done, right [...] Time out Performed using [employer] Ident[employer] Lot #[id number] Expiration date = Catheter size 5 estonian Trimmed at 45cm Total length inserted 40cm [...] with an education handout on line insertion. CDC FAQ Catheter Associated Blood Stream Infections and [facility] [address] REV. 05/23 Nursing and Booklet left at bedside or in chart. Patient (Family or POA) acknowledged understanding of information taught and agreed to procedure. Teofilo Becker RN [facility] Work Phone: Interpretation and review of laboratory results Abnormal [facility] [employer] Specimen Description .BLOOD [facility] [employer] Tip Confirmation System (TCS ) and/ or Chest Xray for tip confirmationon 01-25-2022 [employer] Phone: COVID-19, Rapidon 01-24-2022 SARS-CoV-2 (COVID-19) RNA CHARO+probe Ql (Unsp spec) Not detected Not Detected [facility] Comment on above: Rapid NAAT: The specimen [...] management decisions. Fact sheet for Healthcare Providers: https://www.fda.gov/media/661891/download Fact sheet for Patients: https://www.fda.gov/media/181735/download Methodology: Isothermal Nucleic Acid Amplification Specimen Description .NASOPHARYNGEAL SWAB [facility] [employer] Catheterization and angiogra phy procedure details panelon 01-24-2022 [employer] Phone: POC Glucose Fingerstickon Glucose [Mass/Vol] 97 mg/dL 75 - 110 [facility] with Auto Differentialon 03-15-2022 Absolute Eos # 0.13 [facility] th Absolute Immature Granulocyte 0.03 [facility] Absolute Lymph # 1.03 Low [facility] alth Absolute [place] # 0.83 [facility] Basophils (Bld) [#/Vol] 0.03 10*3/uL [facility] Basophils/100 WBC (Bld) 1 % 0 - 2 % [facility] Eosinophils/100 WBC (Bld) 2 % 1 - 4 % [facility] Hematocrit (Bld) [Volume fraction] 34.1 % Low 40.7 - 50.3 % [facility] Hemoglobin.gastrointesti nal spec 1 Ql (Stl) 11.3 g/dL Low 13.0 - 17.0 g/dL [facility] Immature granulocytes/100 WBC (Bld) 1 % High 0 [facility] Interpretation and review of laboratory results Abnormal [facility] Lymphocytes/100 WBC (Bld) 18 % Low 24 - 43 % [facility] MCH (RBC) [Entitic mass] 27.9 pg 25. 2 - 33.5 pg [facility] MCHC (RBC) [Mass/Vol] 33.1 g/dL 28.4 - 34.8 g/dL [facility] MCV (RBC) [Entitic vol] 84.2 fL 82.6 - 102.9 fL [facility] Monocytes/100 WBC (Bld) 15 % High 3 - 12 % [facility] NRBC Automated 0.0 0.0 per 100 WBC [facility] Platelet distribution width (Bld) [Ratio] 16.1 % High 11.8 - 14.4 % [facility] Platelet mean volume (Bld) [Entitic vol] 9.8 fL 8.1 - 13.5 fL [facility] Platelets (Bld) [#/Vol] 121 10*3/uL Low [facility] RBC (Bld) [#/Vol] 4.05 10*6/uL Low 4.21 - 5.7 7 m/uL [facility] RBC (Bld) [#/Vol] ANISOCYTOSIS PRESENT [facility] Segmented neutrophils/100 WBC (Bld) 63 % 36 - 65 % [facility] Segs Absolute 3.62 [facility] h WBC (Bld) [#/Vol] 5.7 10*3/uL [facility] Hepatic Function Panelon Albumin [Mass/Vol] 2.8 g/dL Low 3.5 - 5.2 g/dL [facility] Albumin/Globulin [Mass ratio] 0.6 {ratio} Low [facility] ALP (Bld) [Catalytic activity/Vol] 85 U/L 40 - 129 U/L [facility] ALT [Catalytic activity/Vol] 32 U/L 5 - 41 U/L [facility] AST [Catalytic activity/Vol] 29 U/L <40 [facility] Bilirubin [Mass/Vol] 0.29 mg/dL Low 0.3 - 1 .2 mg/dL [facility] Bilirubin, Indirect 0.2 mg/dL 0.00 - 1 .00 mg/dL [facility] Bilirubin.indirect [Mass/Vol] 0.09 mg/dL <0.31 [facility] Free PSA/Total PSA [Mass fraction] 7.4 g/dL 6.4 - 8.3 g/dL [facility] Interpretation and review of laboratory results Abnormal [facility] MRI ANKLE LEFT W WO CONTRAST on [...] sprain of the intact anterior talofibular ligament. [facility] EXAMINATION: MRI OF [...] alignment of the joints. No joint effusion. [facility] Addy Turner MD [...] sprain of the intact anterior talofibular ligament. [employer] Phone: Radiology Study observation (narrative) [facility] Phone: MRI ANKLE LEFT W WO CONTRAST Ordered By: Addy Turner on 01-23-2022 [employer] Phone: POC Glucose Fingerstickon Glucose [Mass/Vol] 122 mg/dL High 75 - 110 mg/dL [facility] Interpretation and review of laboratory results Abnormal [facility] Glucose [Mass/Vol] 99 mg/dL 75 - 110 mg/dL [facility] Glucose [Mass/Vol] 141 mg/dL High 75 - 110 mg/dL [facility] Interpretation and review of laboratory results Abnormal [facility] Renal Function Panelon 01-23 Albumin [Mass/Vol] 2.8 g/dL Low 3.5 - 5.2 g/dL [facility] Anion gap [Moles/Vol] 13 mmol/L 9 - 17 mmol/L [facility] Calcium [Mass/Vol] 8.9 mg/dL 8.6 - 10. 4 mg/dL [facility] Chloride [Moles/Vol] 98 mmol/L 98 - 10 7 mmol/L [facility] CO2 [Moles/Vol] 21 mmol/L 20 - 31 mmol/L [facility] Creatinine [Mass/Vol] 0.68 mg/dL Low 0.70 - 1.20 mg/dL [facility] GFR >60 >60 mL/min [facility] GFR Non- >60 >60 mL/min [facility] GFR/1.73 sq M.predicted MDRD (S/P/Bld) [Vol rate/Area] [facility] Comment on above: Average GFR for 40-4 9 years old: 99 mL/min/1.73sq m Chronic Kidney Disease: <60 mL/min/1.73sq m Kidney failure: <15 mL/min/1.73sq m eGFR calculated using average adult body mass. Additional eGFR calculator available at: http://www.[employer].ScoreStream/multiple_crcl_2012.htm Glucose [Mass/Vol] 148 mg/dL High 70 - 99 mg/dL [facility] Interpretation and review of laboratory results Abnormal [facility] Phosphate [Mass/Vol] 2.7 mg/dL 2.5 - 4 .5 mg/dL [facility] Potassium [Moles/Vol] 4.2 mmol/L 3.7 - 5.3 mmol/L [facility] Sodium [Moles/Vol] 132 mmol/L Low 135 - 144 mmol/L [facility] Urea nitrogen (BldV) [Mass/Vol] 14 mg/dL 6 - 20 mg/dL [facility] Vancomycin Level, Randomon 0 01-23-2022 Vancomycin Rm <4.0 ug/mL [facility] Comment on above: Higher trough serum vancomycin concentrations of 15-20 ug/mL are recommended for complicated infections such as bacteremia, endocarditis, osteomyelitis, meningitis, and hospital acquired pneumonia. [facility] Hemoglobin A1Con 01-22-2022 Glucose [Mass/Vol] 114 mg/dL [facility] Comment on above: The ADA and AACC rec ommend providing the estimated average glucose result to permit better patient understanding of their HBA1c result. HbA1c (Bld) [Mass fraction] 5.6 % 4.0 - 6.0 % [facility] POC Glucose Fingerstickon Glucose [Mass/Vol] 95 mg/dL 75 - 110 mg/dL [facility] Glucose [Mass/Vol] 179 mg/dL High 75 - 110 mg/dL [facility] Interpretation and review of laboratory results Abnormal [facility] Glucose [Mass/Vol] 104 mg/dL 75 - 110 mg/dL [facility] Basic Metabolic Panel w/ Ref rebecca to MGon 01-21-2022 Anion gap [Moles/Vol] 14 mmol/L 9 - 17 mmol/L [facility] Calcium [Mass/Vol] 8.6 mg/dL 8.6 - 10. 4 mg/dL [facility] Chloride [Moles/Vol] 106 mmol/L 98 - 10 7 mmol/L [facility] CO2 [Moles/Vol] 20 mmol/L 20 - 31 mmol/L [facility] Creatinine [Mass/Vol] 0.73 mg/dL 0.70 - 1.20 mg/dL [facility] GFR >60 >60 mL/min [facility] GFR Non- >60 >60 mL/min [facility] GFR/1.73 sq M.predicted MDRD (S/P/Bld) [Vol rate/Area] [facility] Comment on above: Average GFR for 40-4 9 years old: 99 mL/min/1.73sq m Chronic Kidney Disease: <60 mL/min/1.73sq m Kidney failure: <15 mL/min/1.73sq m eGFR calculated using average adult body mass. Additional eGFR calculator available at: http://www.[employer].ScoreStream/multiple_crcl_2012.htm Glucose [Mass/Vol] 288 mg/dL High 70 - 99 mg/dL [facility] Interpretation and review of laboratory results Abnormal [facility] Potassium [Moles/Vol] 3.9 mmol/L 3.7 - 5.3 mmol/L [facility] Sodium [Moles/Vol] 140 mmol/L 135 - 144 mmol/L [facility] Urea nitrogen (BldV) [Mass/Vol] 17 mg/dL 6 - 20 mg/dL [facility] C-Reactive Proteinon 022 CRP [Mass/Vol] 51.6 mg/L High 0.0 - 5.0 mg/L [facility] Interpretation and review of laboratory results Abnormal [facility] Lactic Acidon 01-21-2022 Interpretation and review of laboratory results Abnormal [facility] Lactic Acid, Whole Blood 3.3 mmol/L High 0.7 - 2.1 mmol/L [facility] POC Glucose Fingerstickon Glucose [Mass/Vol] 129 mg/dL High 75 - 110 mg/dL [facility] Interpretation and review of laboratory results Abnormal [facility] Procalcitoninon 01-21-2022 Interpretation and review of laboratory results Abnormal [facility] Procalcitonin 11.47 ng/mL High <0.09 [facility] Comment on above: Suspected Sepsis: <0.50 ng/mL [...] entered into the Change in Procalcitonin Calculator (www.hfgebg-hjg-brrhpqigxw.com) to determine the patient's Mortality Risk Prognosis In healthy neonates, plasma Procalcitonin (PCT) concentrations increase gradually after , reaching peak values at about 24 hours of age then decrease to normal values below 0.5 ng/mL by 48-72 hours of age. [facility] Protime-INRon 01-21-2022 INR Coag (Bld) [Relative time] 1.0 {INR} [facility] Comment on above: Therapeutic Range: Moderate Anticoagulant Intensity: INR = 2.0-3.0 High Anticoagulant Intensity: INR = 2.5-3.5 PT Coag (PPP) [Time] 11 s [facility] Postachio [facility] Sedimentation Rateon 022 Interpretation and review of laboratory results Abnormal [facility] Sed Rate 58 mm High 0 - 15 mm [facility] XR CALCANEUS LEFT (MIN 2 VIE WS)on 01-21-2022 1. Soft tissue swelling along the heel of the left foot. No evidence of osteomyelitis. [facility] EXAMINATION: 3 XRAY VIEWS OF THE LEFT CALCANEUS 01/21/2022 5:51 am COMPARISON: 01/10/2022 HISTORY: ORDERING SYSTEM PROVIDED HISTORY: Wound TECHNOLOGIST PROVIDED HISTORY: Wound Reason for Exam: pain FINDINGS: There are areas of edema noted along the left heel. There is no bone erosion or periosteal reaction. No fracture. No retained radiopaque foreign body. [facility] Jefe Bassett MD - 01/21/2022 EXAMINATION: [...] the left foot. No evidence of osteomyelitis. [facility] Work Phone: Radiology Study observation (narrative) [facility] Work Phone: XR CALCANEUS LEFT (MIN 2 VIE WS)Ordered By: Jefe Bassett on 01-21-2022 [facility] Work Phone: Brain Natri. Peptideon 01-20 Natriuretic peptide B (Bld) [Mass/Vol] 93 pg/mL Normal <300 [facility] Comment on above: Result Comment: An age-independent cutoff point of 300 pg/ml has a 98% negative predictive value excluding acute heart failure. Performed By: #### C P, CDP #### [facility] [address] [place] [address] Dr. [place], [place] [address] Forensic Specialist: Joelle Parker MD CBC with Diffon 01-20-2022 Abs. Basophil 0.00 k/uL Normal 0.0-0.2 [facility] Comment on above: Performed By: #### C P, CDP #### [address] [place], [facility] Forensic Specialist: Joelle Parker MD Abs.Imm.Granulocyte 0.00 k/uL Normal 0.00-0.30 [facility] Comment on above: Performed By: #### C P, CDP #### [address] [place], [place] [address] Forensic Specialist: Joelle Parker MD Abs.Neutrophil (Seg) 9.64 k/uL High 1.50-8.10 [facility] Comment on above: Performed By: #### C P, CDP #### [address] [place], [place] [address] Forensic Specialist: Joelle Parker MD Basophils/100 WBC (Bld) 0 % Normal 0-2 [facility] Comment on above: Performed By: #### C P, CDP #### [address] [place], [place] [address] Forensic Specialist: Joelle Parker MD Eosinophils (Bld) [#/Vol] 0.21 10*3/uL Normal 0.00-0.44 [facility] Comment on above: Performed By: #### C P, CDP #### [address] [place], [place] [id number] Forensic Specialist: Joelle Parker MD Eosinophils/100 WBC (Bld) 2 % Normal 1-4 [facility] Comment on above: Performed By: #### C P, CDP #### [facility] [address] [place], [place] [id number] Forensic Specialist: Joelle Parker MD Immature granulocytes/100 WBC (Bld) 0 % Normal 0 [facility] Comment on above: Performed By: #### C P, CDP #### [facility] [address] [place], [place] [id number] Forensic Specialist: Joelle Parker MD Lymphocytes (Bld) [#/Vol] 0.64 10*3/uL Low 1.10-3.70 [facility] Comment on above: Performed By: #### C P, CDP #### [facility] [address] [place], [facility] Forensic Specialist: Joelle Parker MD Lymphocytes/100 WBC (Bld) 6 % Low 24-43 [facility] Comment on above: Performed By: #### C P, CDP #### [address] [place], [place] [id number] Forensic Specialist: Joelle Parker MD Monocytes (Bld) [#/Vol] 0.11 10*3/uL Normal 0.10-1.20 [facility] Comment on above: Performed By: #### C P, CDP #### [facility] [address] [place], [place] [id number] Forensic Specialist: Joelle Parker MD Monocytes/100 WBC (Bld) 1 % Low 3-12 [facility] Comment on above: Performed By: #### C P, CDP #### [facility] [address] [place], [place] [id number] Forensic Specialist: Joelle Parker MD Morphology Adis (Bld) [Interp] ANISOCYTOSIS Normal [facility] Comment on above: Result Comment: PRES ENT Performed By: #### C P, CDP #### [facility] [address] [place], [place] [id number] Forensic Specialist: Joelle Parker MD Neutrophil (Seg) 91 % High 36-65 [facility] Comment on above: Performed By: #### C P, CDP #### [facility] [address] [place], [place] [address]83 Forensic Specialist: Joelle Parker MD Erythrocyte distribution width (RBC) [Ratio] 16.4 % High 11.8-14.4 [facility] Comment on above: Performed By: #### C P, CDP #### [address] [place], [place] [id number] Forensic Specialist: Joelle Parker MD Hematocrit (Bld) [Volume fraction] 35.3 % Low 40.7-50.3 [facility] Comment on above: Performed By: #### C P, CDP #### [address] [place], [place] [id number] Forensic Specialist: Joelle Parker MD Hemoglobin (Bld) [Mass/Vol] 11.1 g/dL Low 13.0-17.0 [facility] Comment on above: Performed By: #### C P, CDP #### [address] [place], [place] [address]83 Forensic Specialist: Joelle Parker MD MCH (RBC) [Entitic mass] 27.5 pg Normal 25.2-33.5 [facility] Comment on above: Performed By: #### C P, CDP #### [address] [place] [address] Forensic Specialist: Joelle Parker MD MCHC (RBC) [Mass/Vol] 31.4 g/dL Normal 28.4-34.8 [facility] Comment on above: Performed By: #### C P, CDP #### [address] [place], [place] [id number] Forensic Specialist: Joelle Parker MD MCV (RBC) [Entitic vol] 87.6 fL Normal 82.6-102.9 [facility] Comment on above: Performed By: #### C P, CDP #### [address] [place] [address] Forensic Specialist: Joelle Parker MD NRBC Automated 0.0 per 100 WBC Normal 0.0 [facility] Comment on above: Performed By: #### C P, CDP #### [address] [place] [address] Forensic Specialist: Joelle Parker MD Platelet mean volume (Bld) [Entitic vol] 8.7 fL Normal 8.1-13.5 [facility] Comment on above: Performed By: #### C P, CDP #### [address] [place], [place] [id number] Forensic Specialist: Joelle Parker MD Platelets (Bld) [#/Vol] 130 10*3/uL Low 138-453 [facility] Comment on above: Performed By: #### C P, CDP #### [address] [place] [address] Forensic Specialist: Joelle Parker MD RBC (Bld) [#/Vol] 4.03 10*6/uL Low 4.21-5.77 [facility] Comment on above: Performed By: #### C P, CDP #### [address] [place] [address] Forensic Specialist: Joelle Parker MD WBC (Bld) [#/Vol] 10.6 10*3/uL Normal 3.5-11.3 [facility] Comment on above: Performed By: #### C P, CDP #### [address] [place] [address] Forensic Specialist: Joelle Parker MD CT CHEST PULMONARY EMBOLISM [...] Amilcar Fang MD 01/20/22 Final result Normal [facility] Comp Metabolic Pr/rfx MGon 0 01-20-2022 (cont.) Normal [facility] Comment on above: Result Comment: Aver age GFR for 40-49 years old: 99 mL/min/1.73sq m Chronic Kidney Disease: <60 mL/min/1.73sq m Kidney failure: <15 mL/min/1.73sq m eGFR calculated using average adult body mass. Additional eGFR calculator available at: http://www.[employer].ScoreStream/multiple_crcl_2012.htm Performed By: #### C P, CDP #### [facility] [address] [place] [address] Forensic Specialist: Joelle Parker MD Albumin [Mass/Vol] 3.3 g/dL Low 3.5-5.2 [facility] Comment on above: Performed By: #### C P, CDP #### [facility] [address] [place] [address] Forensic Specialist: Joelle Parker MD Albumin/Glob Ratio 0.7 Low 1.0-2.5 [facility] Comment on above: Performed By: #### C P, CDP #### [facility] [address] [place], [place] [address]83 Forensic Specialist: Joelle Parker MD Alkaline Phos 113 U/L Normal 40-129 [facility] Comment on above: Performed By: #### C P, CDP #### [facility] [address] [place] [address] Forensic Specialist: Joelle Parker MD ALT [Catalytic activity/Vol] 21 U/L Normal 5-41 [facility] Comment on above: Performed By: #### C P, CDP #### [facility] [address] [place], [place] [phone] Forensic Specialist: Joelle Parker MD Anion gap [Moles/Vol] 7 mmol/L Low 9-17 [facility] Comment on above: Performed By: #### C P, CDP #### [facility] [address] [place], [place] [id number] Forensic Specialist: Joelle Parker MD AST [Catalytic activity/Vol] 18 U/L Normal <40 [facility] Comment on above: Performed By: #### C P, CDP #### [facility] [address] [place], [place] [address]70383 Forensic Specialist: Joelle Parker MD Bilirubin [Mass/Vol] 0.55 mg/dL Normal 0.3-1.2 [facility] Comment on above: Performed By: #### C P, CDP #### [facility] [address] [place], [place] [address] Forensic Specialist: Joelle Parker MD BUN/CRE Ratio 24 High 9-20 [facility] Comment on above: Performed By: #### C P, CDP #### [facility] [address] [place], [place] [address]23383 Forensic Specialist: Joelle Parker MD Calcium [Mass/Vol] 9.1 mg/dL Normal 8.6-10.4 [facility] Comment on above: Performed By: #### C P, CDP #### [facility] [address] [place], [place] [phone] Forensic Specialist: Joelle Parker MD Chloride [Moles/Vol] 99 mmol/L Normal 98-107 [facility] Comment on above: Performed By: #### C P, CDP #### [facility] [address] [place] [address] Dr. [place], [place] [address]83 Forensic Specialist: Joelle Parker MD CO2 [Moles/Vol] 27 mmol/L Normal 20-31 [facility] Comment on above: Performed By: #### C P, CDP #### [facility] [address] [place], [place] [address]13383 Forensic Specialist: Joelle Parker MD Creatinine [Mass/Vol] 0.70 mg/dL Normal 0.70-1.20 [facility] Comment on above: Performed By: #### C P, CDP #### [facility] [address] [place], [place] [address]83 Forensic Specialist: Joelle Parker MD GFR, Amer >60 Normal >60 [facility] Comment on above: Performed By: #### C P, CDP #### [facility] [address] [place], [place] [address] Forensic Specialist: Joelle Parker MD GFR,non Amer >60 Normal >60 [facility] Comment on above: Performed By: #### C P, CDP #### [facility] [address] [place], [place] [address]683 Forensic Specialist: Joelle Parker MD Glucose [Mass/Vol] 104 mg/dL High 70-99 [facility] Comment on above: Performed By: #### C P, CDP #### [facility] [address] [place], [place] 236[address]83 Forensic Specialist: Joelle Parker MD Potassium [Moles/Vol] 4.3 mmol/L Normal 3.7-5.3 [facility] Comment on above: Performed By: #### C P, CDP #### [facility] [address] [place], [place] [address] Forensic Specialist: Joelle Parker MD Protein [Mass/Vol] 8.3 g/dL Normal 6.4-8.3 [facility] Comment on above: Performed By: #### C P, CDP #### [facility] [address] [place], [place] [address]50383 Forensic Specialist: Joelle Parker MD Sodium [Moles/Vol] 133 mmol/L Low 135-144 [facility] Comment on above: Performed By: #### C P, CDP #### [facility] [address] [place] [address] Forensic Specialist: Joelle Parker MD Staging: Normal [facility] Comment on above: Result Comment: Stag e 1: Some kidney damage normal GFR Stage 2: Mild kidney damage GFR 60-89 Stage 3: Moderate kidney damage GFR 30-59 Stage 4: Severe kidney damage GFR 15-29 Stage 5: Severe kidney damage GFR <15 ESRD - chronic treatment by dialysis or transplant Performed By: #### C P, CDP #### [facility] [address] [place] [address] Forensic Specialist: Joelle Parker MD Urea nitrogen [Mass/Vol] 17 mg/dL Normal 6-20 [facility] Comment on above: Performed By: #### C P, CDP #### [facility] [address] [place] [address] Forensic Specialist: Joelle Parker MD D-Dimer Teston 01-20-2022 D-Dimer Test 2.69 mg/L FEU High 0.00-0.59 [facility] Comment on above: Result Comment: When combined [...] DVT. Performed By: #### D YFN #### [facility] [address] [place] [address] Forensic Specialist: Joelle Parker MD Flu A/B Ag Detectionon 01-20 Flu A/B Ag Detection Specimen Descriptio n .NASOPHARYNGEAL SWAB Direct Exam NEGATIVE for Influenza A + B antigens. PCR testing to confirm this result is available upon request. Specimen will be saved in the laboratory for 7 days. Please call [phone] if PCR testing is indicated. Report Status FINAL 01/20/2022 Normal [facility] Comment on above: Performed By: #### C P, CDP #### [facility] [address] [place] [address] Forensic Specialist: Joelle Parker MD LACTIC ACID, WHOLE BLOODon 0 01-20-2022 Interpretation and review of laboratory results Abnormal [facility] Lactic Acid, Whole Blood 2.5 mmol/L High 0.7 - 2.1 mmol/L [facility] - Chemistry and C hemistry - challengeon 01-20-2022 Hemoglobin.gastrointesti nal spec 1 Ql (Stl) 11.1 g/dL Low 13.0 - 17.0 g/dL [facility] Albumin [Mass/Vol] 3.3 g/dL Low 3.5 - 5.2 g/dL [facility] Albumin/Globulin [Mass ratio] 0.7 {ratio} Low [facility] ALP (Bld) [Catalytic activity/Vol] 113 U/L 40 - 129 U/L [facility] ALT [Catalytic activity/Vol] 21 U/L 5 - 41 U/L [facility] Anion gap [Moles/Vol] 7 mmol/L Low 9 - 17 mmol/L [facility] AST [Catalytic activity/Vol] 18 U/L <40 [facility] Bilirubin [Mass/Vol] 0.55 mg/dL 0.3 - 1 .2 mg/dL [facility] Calcium [Mass/Vol] 9.1 mg/dL 8.6 - 10. 4 mg/dL [facility] Chloride [Moles/Vol] 99 mmol/L 98 - 10 7 mmol/L [facility] CO2 [Moles/Vol] 27 mmol/L 20 - 31 mmol/L [facility] Creatinine [Mass/Vol] 0.7 mg/dL 0.70 - 1.20 mg/dL [facility] Free PSA/Total PSA [Mass fraction] 8.3 g/dL 6.4 - 8.3 g/dL [facility] GFR/1.73 sq M.predicted MDRD (S/P/Bld) [Vol rate/Area] [facility] Comment on above: Average GFR for 40-4 9 years old: 99 mL/min/1.73sq m Chronic Kidney Disease: <60 mL/min/1.73sq m Kidney failure: <15 mL/min/1.73sq m eGFR calculated using average adult body mass. Additional eGFR calculator available at: http://www.[employer]/multiple_crcl_2012.htm Stage 1: Some kidney damage normal GFR Stage 2: Mild kidney damage GFR 60-89 Stage 3: Moderate kidney damage GFR 30-59 Stage 4: Severe kidney damage GFR 15-29 Stage 5: Severe kidney damage GFR <15 ESRD - chronic treatment by dialysis or transplant Glucose [Mass/Vol] 104 mg/dL High 70 - 99 mg/dL [facility] Natriuretic peptide B (Bld) [Mass/Vol] 93 pg/mL <300 [facility] Comment on above: An age-independent cutoff point of 300 pg/ml has a 98% negative predictive value excluding acute heart failure. Potassium [Moles/Vol] 4.3 mmol/L 3.7 - 5.3 mmol/L [facility] Sodium [Moles/Vol] 133 mmol/L Low 135 - 144 mmol/L [facility] Urea nitrogen (BldV) [Mass/Vol] 17 mg/dL 6 - 20 mg/dL [facility] Urea nitrogen/Creatinine (Bld) [Mass ratio] 24 High [facility] Ketones Ql (U) Negative NEGATIVE [facility] - Hematology and Cell countson 01-20-2022 Basophils (Bld) [#/Vol] 0.00 10*3/uL [facility] Basophils/100 WBC (Bld) 0 % 0 - 2 % M [place] Eosinophils/100 WBC (Bld) 2 % 1 - 4 % [facility] Hematocrit (Bld) [Volume fraction] 35.3 % Low 40.7 - 50.3 % [facility] Immature granulocytes/100 WBC (Bld) 0 % 0 [facility] Lymphocytes/100 WBC (Bld) 6 % Low 24 - 43 % [facility] MCH (RBC) [Entitic mass] 27.5 pg 25. 2 - 33.5 pg [facility] MCHC (RBC) [Mass/Vol] 31.4 g/dL 28.4 - 34.8 g/dL [facility] MCV (RBC) [Entitic vol] 87.6 fL 82.6 - 102.9 fL [facility] Monocytes/100 WBC (Bld) 1 % Low 3 - 12 % M [place] Morphology Adis (Bld) [Interp] ANISOCYTOSIS PRESENT [facility] h Platelet distribution width (Bld) [Ratio] 16.4 % High 11.8 - 14.4 % [facility] Platelet mean volume (Bld) [Entitic vol] 8.7 fL 8.1 - 13.5 fL [facility] Platelets (Bld) [#/Vol] 130 10*3/uL Low [facility] RBC (Bld) [#/Vol] 4.03 10*6/uL Low 4.21 - 5.7 7 m/uL [facility] Segmented neutrophils/100 WBC (Bld) 91 % High 36 - 65 % [facility] WBC (Bld) [#/Vol] 10.6 10*3/uL [facility] Laboratory - Microbiology an d Antimicrobial susceptibilityon 01-20-2022 SARS-CoV-2 (COVID-19) RNA CHARO+probe Ql (Unsp spec) Not detected Not Detected [facility] Comment on above: Rapid NAAT: The specimen [...] management decisions. Fact sheet for Healthcare Providers: https://www.fda.gov/media/754588/download Fact sheet for Patients: https://www.fda.gov/media/612976/download Methodology: Isothermal Nucleic Acid Amplification Laboratory - Urinalysison Leukocyte esterase Test strip Ql (U) Negative NEGATIVE [facility] Lactate, Sepsison 01-20-2022 Lactic Acid, Sepsis 2.6 mmol/L High 0.5-1.9 [facility] Comment on above: Performed By: #### C P, CDP #### [facility] [address] [place], [place] [id number] Forensic Specialist: Joelle Parker MD Lactic Acid, Sepsis 1.7 mmol/L Normal 0.5-1.9 [facility] Comment on above: Performed By: #### A LCB #### [facility] [address] [place], [place] [phone] Forensic Specialist: Joelle Parker MD Lactic Acid, Sepsis 1.3 mmol/L Normal 0.5-1.9 [facility] Comment on above: Performed By: #### C P, CDP #### [address] [place], [place] [phone] Forensic Specialist: Joelle Parker MD Lactic Acid, Sepsis 1.9 mmol/L Normal 0.5-1.9 [facility] Comment on above: Performed By: #### C P, CDP #### [address] [place], [place] [phone] Forensic Specialist: Joelle Parker MD No Panel Informationon 01-20 Interpretation and review of laboratory results Abnormal [facility] Lactic Acid, Sepsis 2.6 mmol/L High 0.5 - 1. 9 mmol/L [facility] No evidence of pulmonary embolism or acute thoracic aortic abnormality. Improving aeration. Scattered airspace opacities are present throughout the lungs bilaterally to a mild degree, overall improved from prior, possibly representing residual pneumonia. [facility] EXAMINATION: CTA OF THE CHEST 01/20/2022 [...] Abdomen: The visualized upper abdomen is unremarkable. [facility] Amilcar Fang MD - 01/20/2022 EXAMINATION: [...] improved from prior, possibly representing residual pneumonia. [facility] Work Phone: Radiology Study observation (narrative) [facility] Work Phone: D-Dimer, Quant 2.[address] [facility] Comment on above: When combined with a [...] Interpretation and review of laboratory results Abnormal [facility] Poor data quality, interpretation may be adversely affected Sinus tachycardia Otherwise normal ECG When compared with ECG of 10-JAN-2022 20:20, No significant change was found Confirmed by Valery Canela MD ([id number]) on 01/20/2022 6:02:54 PM [facility] Valery Canela MD - 01/20/2022 Poor data quality, interpretation may be adversely affected Sinus tachycardia Otherwise normal ECG When compared with ECG of 10-JAN-2022 20:20, No significant change was found Confirmed by Hilton FAUSTIN, Valery ([id number]) on 01/20/2022 6:02:54 PM [facility] Work Phone: Lactic Acid, Sepsis 1.7 mmol/L 0.5 - 1. 9 mmol/L [facility] Lactic Acid, Sepsis 1.3 mmol/L 0.5 - 1. 9 mmol/L [facility] Absolute Eos # 0.21 [facility] th Absolute Immature Granulocyte 0.00 [facility] Absolute Lymph # 0.64 Low [facility] alth Absolute [place] # 0.11 [facility] lt Interpretation and review of laboratory results Abnormal [facility] NRBC Automated 0.0 0.0 per 100 WBC [facility] Segs Absolute 9.64 High [facility] GFR >60 >60 mL/min [facility] GFR Non- >60 >60 mL/min [facility] Interpretation and review of laboratory results Abnormal [facility] Troponin, High Sensitivity <6 0 - 22 ng/L [facility] Comment on above: High Sensitivity Troponin values cannot be compared with other Troponin methodologies. Patients with high levels of Biotin oral intake (i.e >5mg/day) may have falsely decreased Troponin levels. Samples collected within 8 hours of biotin intake may require additional information for diagnosis. [facility] - [facility] Bacteria, UA 1+ Abnormal None [facility] Epithelial Cells UA 0 TO 2 [facility] Interpretation and review of laboratory results Abnormal [facility] Mucus, UA 1+ Abnormal None [facility] RBC, UA 50 TO 100 [facility] WBC, UA None [facility] Bilirubin Urine Negative NEGATIVE [facility] Color, UA Yellow Yellow [facility] Glucose, Ur Negative NEGATIVE [facility] Interpretation and review of laboratory results Abnormal [facility] Nitrite, Urine Negative NEGATIVE [facility] pH, UA 7.5 [facility] Protein, UA Negative NEGATIVE [facility] Specific [place], UA 1.025 High [facility] Turbidity UA Clear Clear [facility] Urine Hgb 3+ Abnormal NEGATIVE [facility] Urobilinogen, Urine Normal Normal [facility] Lactic Acid, Sepsis 1.9 mmol/L 0.5 - 1. 9 mmol/L [facility] Direct Exam NEGATIVE for Influenza A + B antigens. PCR testing to confirm this result is available upon request. Specimen will be saved in the laboratory for 7 days. Please call [phone] if PCR testing is indicated. [facility] Specimen Description .NASOPHARYNGEAL SWAB [facility] [facility] Specimen Description .NASOPHARYNGEAL SWAB [facility] Diffuse interstitial opacities may represent mild edema or atypical infection. [facility] EXAMINATION: ONE XRAY [...] pneumothorax identified. Osseous structures are grossly unchanged. [facility] Miky Campbell DO [...] may represent mild edema or atypical infection. [employer] Phone: Radiology Study observation (narrative) [facility] Phone: No Panel InformationOrdered By: Amilcar Fang on 01-20-2022 [employer] Phone: No Panel InformationOrdered By: Valery Canela on 01-20-2022 Atrial Rate 133 BPM [employer] Phone: P Blacklick 54 degrees [employer] Phone: P-R Interval 122 ms [employer] Phone: Q-T Interval 288 ms [employer] Phone: QRS Duration 76 ms [employer] Phone: QTc Calculation (Bazett) 428 ms [employer] Phone: R Blacklick 78 degrees [facility] Phone: T Blacklick 61 degrees [facility] Phone: Ventricular Rate 133 BPM [employer] Work Phone: [facility] Work Phone: No Panel InformationOrdered By: Miky Cmapbell on 01-20-2022 [facility] Phone: [id number] 01-20-2022 SARS-CoV-2 (COVID-19) RNA CHARO+probe Ql (Unsp spec) Not detected Normal NOTDET [facility] Comment on above: Result Comment: Rapid [...] management decisions. Fact sheet for Healthcare Providers: https://www.fda.gov/media/717299/download Fact sheet for Patients: https://www.fda.gov/media/347850/download Methodology: Isothermal Nucleic Acid Amplification Performed By: #### C OVRB #### [facility] [address] [place] [address] Forensic Specialist: Joelle Parker MD Troponinon 01-20-2022 Troponin, High Sens <6 Normal 0-22 [facility] Comment on above: Result Comment: High Sensitivity Troponin values cannot be compared with other Troponin methodologies. Patients with high levels of Biotin oral intake (i.e >5mg/day) may have falsely decreased Troponin levels. Samples collected within 8 hours of biotin intake may require additional information for diagnosis. Performed By: #### C P, CDP #### [facility] [address] [place], [place] [id number] Forensic Specialist: Joelle Parker MD Urinalysis, Routineon 2021 Bilirubin, SemiQt,Ur Negative Normal NEG [facility] Comment on above: Performed By: #### C P, CDP #### [facility] [address] [place] [address] [place] [place], [place] [id number] Forensic Specialist: Joelle Parker MD Blood, Urine 3+ Abnormal NEG [facility] Comment on above: Performed By: #### C P, CDP #### [facility] [address] [place] [address] Forensic Specialist: Joelle Parker MD Clarity (U) Clear Normal CLEAR [facility] Comment on above: Performed By: #### C P, CDP #### [facility] [address] [place] [address] [place] [address] Forensic Specialist: Joelle Parker MD Color (U) Yellow Normal YEL [facility] Comment on above: Performed By: #### C P, CDP #### [facility] [address] [place], [place] [id number] Forensic Specialist: Joelle Parker MD Glucose Ql (U) Negative Normal NEG [facility] Comment on above: Performed By: #### C P, CDP #### [facility] [address] [place], [place] [id number] Forensic Specialist: Joelle Parker MD Ketones Ql (U) Negative Normal NEG [facility] Comment on above: Performed By: #### C P, CDP #### [facility] [address] [place] [address] Forensic Specialist: Joelle Parker MD Leukocyte esterase Test strip Ql (U) Negative Normal NEG [facility] Comment on above: Performed By: #### C P, CDP #### [facility] [address] [place], [place] [id number] Forensic Specialist: Joelle Parker MD Nitrite,Ur Negative Normal NEG [facility] Comment on above: Performed By: #### C P, CDP #### [facility] [address] [place], [place] [id number] Forensic Specialist: Joelle Parker MD PH,Ur 7.5 Normal 5.0-9.0 [facility] Comment on above: Performed By: #### C P, CDP #### [facility] [address] [place], [place] [id number] Forensic Specialist: Joelle Parker MD Protein Ql (U) Negative Normal NEG [facility] Comment on above: Performed By: #### C P, CDP #### [facility] [address] [place] [address] [place] [place], [place] [phone] Forensic Specialist: Joelle Parker MD Spec. [place],Ur 1.025 High 1.010-1.020 [facility] Comment on above: Performed By: #### C P, CDP #### [facility] [address] [place], [place] [id number] Forensic Specialist: Joelle Parker MD Urobilinogen,Ur Normal Normal NORM [facility] Comment on above: Performed By: #### C P, CDP #### [facility] [address] [place], [place] [id number] Forensic Specialist: Joelle Parker MD Urinalysis,Microon 2 ----- Normal [facility] Comment on above: Performed By: #### C P, CDP #### [facility] [address] [place], [place] [phone] Forensic Specialist: Joelle Parker MD Bacteria 1+ Abnormal NONE [facility] Comment on above: Performed By: #### C P, CDP #### [facility] [address] [place] [address] Forensic Specialist: Joelle Parker MD Epithelial cells LM Ql (Urine sed) 0 TO 2 Normal 0-5 [facility] Comment on above: Performed By: #### C P, CDP #### [facility] [address] [place], [place] [id number] Forensic Specialist: Joelle Parker MD Mucus Strands 1+ Abnormal NONE [facility] Comment on above: Performed By: #### C P, CDP #### [facility] [address] [place], [place] [id number] Forensic Specialist: Joelle Parker MD Urine RBC's 50 TO 100 Normal 0-2 [facility] Comment on above: Performed By: #### C P, CDP #### [facility] [address] [place], [place] [id number] Forensic Specialist: Joelle Parker MD Urine WBC's None Normal 0-5 [facility] Comment on above: Performed By: #### C P, CDP #### [facility] [address] [place], [place] [id number] Forensic Specialist: Joelle Parker MD XR CHEST PORTABLEon 01-21-20 [...] Miky Campbell DO 01/20/22 Final result Normal [facility] Acetaminophenon 01-10-2022 Acetaminophen [Mass/Vol] ug/mL Low 10-30 [facility] Comment on above: Performed By: #### A LCB #### [facility] [address] [place], [place] [phone] Forensic Specialist: Joelle Parker MD Acetaminophen Levelon 2021 Acetaminophen Level <5 Low 10 - 30 ug/mL [facility] Interpretation and review of laboratory results Abnormal [facility] CBC with Auto Differentialon 01-10-2022 Absolute Eos # 0.19 [facility] th Absolute Immature Granulocyte 0.09 [facility] Absolute Lymph # 0.97 Low [facility] alth Absolute [place] # 0.66 [facility] Basophils (Bld) [#/Vol] 0.03 10*3/uL [facility] Basophils/100 WBC (Bld) 0 % 0 - 2 % [facility] Eosinophils/100 WBC (Bld) 2 % 1 - 4 % [facility] Hematocrit (Bld) [Volume fraction] 28.4 % Low 40.7 - 50.3 % [facility] Hemoglobin.gastrointesti nal spec 1 Ql (Stl) 8.8 g/dL Low 13.0 - 17.0 g/dL [facility] Immature granulocytes/100 WBC (Bld) 1 % High 0 [facility] Interpretation and review of laboratory results Abnormal [facility] Lymphocytes/100 WBC (Bld) 11 % Low 24 - 43 % [facility] MCH (RBC) [Entitic mass] 27.7 pg 25. 2 - 33.5 pg [facility] MCHC (RBC) [Mass/Vol] 31.0 g/dL 28.4 - 34.8 g/dL [facility] MCV (RBC) [Entitic vol] 89.3 fL 82.6 - 102.9 fL [facility] Monocytes/100 WBC (Bld) 8 % 3 - 12 % [facility] NRBC Automated 0.0 0.0 per 100 WBC [facility] Platelet distribution width (Bld) [Ratio] 14.3 % 11.8 - 14.4 % [facility] Platelet mean volume (Bld) [Entitic vol] 9.5 fL 8.1 - 13.5 fL [facility] Platelets (Bld) [#/Vol] 305 10*3/uL [facility] RBC (Bld) [#/Vol] 3.18 10*6/uL Low 4.21 - 5.7 7 m/uL [facility] Segmented neutrophils/100 WBC (Bld) 78 % High 36 - 65 % [facility] Segs Absolute 6.79 [facility] W[facility] (Bld) [#/Vol] 8.7 10*3/uL [facility] CBC with Diffon 01-10-2022 Abs. Basophil 0.03 k/uL Normal 0.00-0.20 [facility] Comment on above: Performed By: #### A LCB #### [address] [place] [address] Forensic Specialist: Joelle Parker MD Abs.Imm.Granulocyte 0.09 k/uL Normal 0.00-0.30 [facility] Comment on above: Performed By: #### A LCB #### [address] [place] [address] Forensic Specialist: Joelle Parker MD Abs.Neutrophil (Seg) 6.79 k/uL Normal 1.50-8.10 [facility] Comment on above: Performed By: #### A LCB #### [address] [place], [place] [id number] Forensic Specialist: Joelle Parker MD Basophils/100 WBC (Bld) 0 % Normal 0-2 [facility] Comment on above: Performed By: #### A LCB #### [address] [place] [address] Forensic Specialist: Joelle Parekr MD Eosinophils (Bld) [#/Vol] 0.19 10*3/uL Normal 0.00-0.44 [facility] Comment on above: Performed By: #### A LCB #### [address] [place] [address] Forensic Specialist: Joelle Parker MD Eosinophils/100 WBC (Bld) 2 % Normal 1-4 [facility] Comment on above: Performed By: #### A LCB #### [facility] [address] [place] [address] [place] [address] Forensic Specialist: Joelle Parker MD Erythrocyte distribution width (RBC) [Ratio] 14.3 % Normal 11.8-14.4 [facility] Comment on above: Performed By: #### A LCB #### [facility] [address] [place] [address] [place] [address] Forensic Specialist: Joelle Parker MD Hematocrit (Bld) [Volume fraction] 28.4 % Low 40.7-50.3 [facility] Comment on above: Performed By: #### A LCB #### [address] [place] [address] Forensic Specialist: Joelle Parker MD Hemoglobin (Bld) [Mass/Vol] 8.8 g/dL Low 13.0-17.0 [facility] Comment on above: Performed By: #### A LCB #### [address] [place] [address] Forensic Specialist: Joelle Parker MD Immature granulocytes/100 WBC (Bld) 1 % High 0 [facility] Comment on above: Performed By: #### A LCB #### [facility] [address] [place] [address] [place] [address] Forensic Specialist: Joelle Parker MD Lymphocytes (Bld) [#/Vol] 0.97 10*3/uL Low 1.10-3.70 [facility] Comment on above: Performed By: #### A LCB #### [address] [place] [address] Forensic Specialist: Joelle Parker MD Lymphocytes/100 WBC (Bld) 11 % Low 24-43 [facility] Comment on above: Performed By: #### A LCB #### [address] [place] [address] Forensic Specialist: Joelle Parker MD MCH (RBC) [Entitic mass] 27.7 pg Normal 25.2-33.5 [facility] Comment on above: Performed By: #### A LCB #### [address] [place] [facility] Forensic Specialist: Joelle Parker MD MCHC (RBC) [Mass/Vol] 31.0 g/dL Normal 28.4-34.8 [facility] Comment on above: Performed By: #### A LCB #### [address] [place] [address] Forensic Specialist: Joelle Parker MD MCV (RBC) [Entitic vol] 89.3 fL Normal 82.6-102.9 [facility] Comment on above: Performed By: #### A LCB #### [address] [place] [address] Forensic Specialist: Joelle Parker MD Monocytes (Bld) [#/Vol] 0.66 10*3/uL Normal 0.10-1.20 [facility] Comment on above: Performed By: #### A LCB #### [address] [place], [place] [id number] Forensic Specialist: Joelle Parker MD Monocytes/100 WBC (Bld) 8 % Normal 3-12 [facility] Comment on above: Performed By: #### A LCB #### [address] [place] [address] Forensic Specialist: Joelle Parker MD Neutrophil (Seg) 78 % High 36-65 [facility] Comment on above: Performed By: #### A LCB #### [address] [place] [address] Forensic Specialist: Joelle Parker MD NRBC Automated 0.0 per 100 WBC Normal 0.0 [facility] Comment on above: Performed By: #### A LCB #### [facility] [address] [place] [address] Forensic Specialist: Joelle Parker MD Platelet mean volume (Bld) [Entitic vol] 9.5 fL Normal 8.1-13.5 [facility] Comment on above: Performed By: #### A LCB #### [facility] [address] [place] [address] Forensic Specialist: Joelle Parker MD Platelets (Bld) [#/Vol] 305 10*3/uL Normal 138-453 [facility] Comment on above: Performed By: #### A LCB #### [facility] [address] [place] [address] Forensic Specialist: Joelle Parker MD RBC (Bld) [#/Vol] 3.18 10*6/uL Low 4.21-5.77 [facility] Comment on above: Performed By: #### A LCB #### [facility] [address] [place] [address] Forensic Specialist: Joelle Parker MD WBC (Bld) [#/Vol] 8.7 10*3/uL Normal 3.5-11.3 [facility] Comment on above: Performed By: #### A LCB #### [facility] [address] [place] [address] Forensic Specialist: Joelle Parker MD Comp Metabolic Profon 2021 (cont.) Normal [facility] Comment on above: Result Comment: Aver age GFR for 40-49 years old: 99 mL/min/1.73sq m Chronic Kidney Disease: <60 mL/min/1.73sq m Kidney failure: <15 mL/min/1.73sq m eGFR calculated using average adult body mass. Additional eGFR calculator available at: http://www.[employer].com/multiple_crcl_2012.htm Performed By: #### A LCB #### [facility] [address] [place], [place] [id number] Forensic Specialist: Joelle Parker MD Albumin [Mass/Vol] 2.7 g/dL Low 3.5-5.2 [facility] Comment on above: Performed By: #### A LCB #### [facility] [address] [place] [address] Forensic Specialist: Joelle Parker MD Albumin/Glob Ratio 0.5 Low 1.0-2.5 [facility] Comment on above: Performed By: #### A LCB #### [address] [place] [address] Forensic Specialist: Joelle Parker MD Alkaline Phos 138 U/L High 40-129 [facility] Comment on above: Performed By: #### A LCB #### [facility] [address] [place] [address] Forensic Specialist: Joelle Parker MD ALT [Catalytic activity/Vol] 21 U/L Normal 5-41 [facility] Comment on above: Performed By: #### A LCB #### [facility] [address] [place] [address] Forensic Specialist: Joelle Parker MD Anion gap [Moles/Vol] 8 mmol/L Low 9-17 [facility] Comment on above: Performed By: #### A LCB #### [facility] [address] [place] [address] [place], [place] [phone] Forensic Specialist: Joelle Parker MD AST [Catalytic activity/Vol] 26 U/L Normal <40 [facility] Comment on above: Performed By: #### A LCB #### [facility] [address] [place] [address] Forensic Specialist: Joelle Parkre MD Bilirubin [Mass/Vol] 0.20 mg/dL Low 0.3-1.2 [facility] Comment on above: Performed By: #### A LCB #### [facility] [address] [place], [place] 3305[address] Forensic Specialist: Joelle Parker MD BUN/CRE Ratio 16 Normal 9-20 [facility] Comment on above: Performed By: #### A LCB #### [facility] [address] [place], [place] 3290383 Forensic Specialist: Joelle Parker MD Calcium [Mass/Vol] 9.0 mg/dL Normal 8.6-10.4 [facility] Comment on above: Performed By: #### A LCB #### [facility] [address] [place], [place] [address] Forensic Specialist: Joelle Parker MD Chloride [Moles/Vol] 101 mmol/L Normal 98-107 [facility] Comment on above: Performed By: #### A LCB #### [facility] [address] [place] [address] [place], [place] 9330783 Forensic Specialist: Joelle Parker MD CO2 [Moles/Vol] 26 mmol/L Normal 20-31 [facility] Comment on above: Performed By: #### A LCB #### [facility] [address] [place], [place] [address]83 Forensic Specialist: Joelle Parker MD Creatinine [Mass/Vol] 0.80 mg/dL Normal 0.70-1.20 [facility] Comment on above: Performed By: #### A LCB #### [facility] [address] [place] [address] Forensic Specialist: Joelle Parker MD GFR, Amer >60 Normal >60 [facility] Comment on above: Performed By: #### A LCB #### [address] [place], [place] [address] Forensic Specialist: Joelle Parker MD GFR,non Amer >60 Normal >60 [facility] Comment on above: Performed By: #### A LCB #### [facility] [address] [place] [address] [place], [place] 6[address]83 Forensic Specialist: Joelle Parker MD Glucose [Mass/Vol] 98 mg/dL Normal 70-99 [facility] Comment on above: Performed By: #### A LCB #### [address] [place], [place] [address] Forensic Specialist: Joelle Parker MD Potassium [Moles/Vol] 4.2 mmol/L Normal 3.7-5.3 [facility] Comment on above: Performed By: #### A LCB #### [address] [place], [place] [address]83 Forensic Specialist: Joelle Parker MD Protein [Mass/Vol] 8.1 g/dL Normal 6.4-8.3 [facility] Comment on above: Performed By: #### A LCB #### [address] [place], [place] [id number] Forensic Specialist: Joelle Parker MD Sodium [Moles/Vol] 135 mmol/L Normal 135-144 [facility] Comment on above: Performed By: #### A LCB #### [address] [place], [place] [address]83 Forensic Specialist: Joelle Parker MD Staging: Normal [facility] Comment on above: Result Comment: Stag e 1: Some kidney damage normal GFR Stage 2: Mild kidney damage GFR 60-89 Stage 3: Moderate kidney damage GFR 30-59 Stage 4: Severe kidney damage GFR 15-29 Stage 5: Severe kidney damage GFR <15 ESRD - chronic treatment by dialysis or transplant Performed By: #### A LCB #### [facility] [address] [place] [address] [place] [address] Forensic Specialist: Joelle Parker MD Urea nitrogen [Mass/Vol] 13 mg/dL Normal 6-20 [facility] Comment on above: Performed By: #### A LCB #### [facility] [address] [place] [address] Forensic Specialist: Joelle Parker MD Comprehensive Metabolic Pane nevin 01-10-2022 Albumin [Mass/Vol] 2.7 g/dL Low 3.5 - 5.2 g/dL [facility] Albumin/Globulin [Mass ratio] 0.5 {ratio} Low [facility] ALP (Bld) [Catalytic activity/Vol] 138 U/L High 40 - 129 U/L [facility] ALT [Catalytic activity/Vol] 21 U/L 5 - 41 U/L [facility] Anion gap [Moles/Vol] 8 mmol/L Low 9 - 17 mmol/L [facility] AST [Catalytic activity/Vol] 26 U/L <40 [facility] Bilirubin [Mass/Vol] 0.20 mg/dL Low 0.3 - 1 .2 mg/dL [facility] Calcium [Mass/Vol] 9.0 mg/dL 8.6 - 10. 4 mg/dL [facility] Chloride [Moles/Vol] 101 mmol/L 98 - 10 7 mmol/L [facility] CO2 [Moles/Vol] 26 mmol/L 20 - 31 mmol/L [facility] Creatinine [Mass/Vol] 0.8 mg/dL 0.70 - 1.20 mg/dL [facility] Free PSA/Total PSA [Mass fraction] 8.1 g/dL 6.4 - 8.3 g/dL [facility] GFR >60 >60 mL/min [facility] GFR Non- >60 >60 mL/min [facility] Glucose [Mass/Vol] 98 mg/dL 70 - 99 mg/dL [facility] Potassium [Moles/Vol] 4.2 mmol/L 3.7 - 5.3 mmol/L [facility] Sodium [Moles/Vol] 135 mmol/L 135 - 144 mmol/L [facility] Urea nitrogen (BldV) [Mass/Vol] 13 mg/dL 6 - 20 mg/dL [facility] Urea nitrogen/Creatinine (Bld) [Mass ratio] 16 [facility] Ethanolon 01-10-2022 Ethanol [Mass/Vol] mg/dL <10 mg/dL [facility] Ethanol percent <0.010 <0.010 % [facility] Ethanol Alcoholon 01-10-2022 Ethanol [Mass/Vol] mg/dL Normal <10 [facility] Comment on above: Performed By: #### A LCB #### [facility] [address] [place] [address] Forensic Specialist: Joelle Parker MD Ethanol percent <0.010 Normal <0.010 [facility] Comment on above: Performed By: #### A LCB #### [facility] [address] [place] [address] Forensic Specialist: Joelle Parker MD Laboratory - Chemistry and C hemistry - challengeon 01-10-2022 GFR/1.73 sq M.predicted MDRD (S/P/Bld) [Vol rate/Area] [facility] Comment on above: Average GFR for 40-4 9 years old: 99 mL/min/1.73sq m Chronic Kidney Disease: <60 mL/min/1.73sq m Kidney failure: <15 mL/min/1.73sq m eGFR calculated using average adult body mass. Additional eGFR calculator available at: http://www.[employer].ScoreStream/multiple_crcl_2012.htm Stage 1: Some kidney damage normal GFR Stage 2: Mild kidney damage GFR 60-89 Stage 3: Moderate kidney damage GFR 30-59 Stage 4: Severe kidney damage GFR 15-29 Stage 5: Severe kidney damage GFR <15 ESRD - chronic treatment by dialysis or transplant No Panel Informationon 01-10 Interpretation and review of laboratory results Abnormal [facility] Salicylateon 01-10-2022 Salicylate <1 Low 3-10 [facility] Comment on above: Performed By: #### B C #### [facility] [address] [place] [address] Forensic Specialist: Joelle Parker MD Salicylate Lvl <1 Low 3 - 10 mg/dL [facility] XR FOOT LEFT (MIN 3 [...] by: Roscoe Ferrer 01/10/22 Final result Normal [facility] Soft tissue defect over the posterior aspect of the ankle with surrounding soft tissue swelling and likely an effusion in Kager's fat pad. No underlying osseous findings to suggest osteomyelitis. Cannot exclude soft tissue infection [facility]AM[facility]ATION: THREE XRAY VIEWS OF THE [...] No underlying bony changes to suggest osteomyelitis. [facility] Roscoe Ferrer - 01/10/2022 EXAMINATION: THREE XRAY VIEWS OF [...] suggest osteomyelitis. Cannot exclude soft tissue infection [employer] Work Phone: Radiology Study observation (narrative) [employer] Work Phone: XR FOOT LEFT (MIN 3 VIEWS)Or dered By: Roscoe Ferrer on 01-10-2022 [employer] Work Phone: Basic Metabolic Panel w/ Ref rebecca to MGon 12-20-2021 Anion gap [Moles/Vol] 8 mmol/L Low 9 - 17 mmol/L [facility] Calcium [Mass/Vol] 7.7 mg/dL Low 8.6 - 10. 4 mg/dL [facility] Chloride [Moles/Vol] 99 mmol/L 98 - 10 7 mmol/L [facility] CO2 [Moles/Vol] 23 mmol/L 20 - 31 mmol/L [facility] Creatinine [Mass/Vol] 0.82 mg/dL 0.70 - 1.20 mg/dL [facility] GFR >60 >60 mL/min [employer] GFR Non- >60 >60 mL/min [facility] GFR/1.73 sq M.predicted MDRD (S/P/Bld) [Vol rate/Area] [facility] Comment on above: Average GFR for 30-3 9 years old: 107 mL/min/1.73sq m Chronic Kidney Disease: <60 mL/min/1.73sq m Kidney failure: <15 mL/min/1.73sq m eGFR calculated using average adult body mass. Additional eGFR calculator available at: http://www.[employer].com/multiple_crcl_2012.htm GFR/1.73 sq M.predicted MDRD (S/P/Bld) [Vol rate/Area] NOT REPORTED [facility] Glucose [Mass/Vol] 110 mg/dL High 70 - 99 mg/dL [facility] Interpretation and review of laboratory results Abnormal [facility] Potassium [Moles/Vol] 4.6 mmol/L 3.7 - 5.3 mmol/L [facility] Sodium [Moles/Vol] 130 mmol/L Low 135 - 144 mmol/L [facility] Urea nitrogen (BldV) [Mass/Vol] 15 mg/dL 6 - 20 mg/dL [facility] Urea nitrogen/Creatinine (Bld) [Mass ratio] NOT REPORTED [facility] IR ARTHR/ASP/INJ MAJOR JT/BU RSA RIGHT WO USon 12-20-2021 Successful fluoroscopic-guided right shoulder aspiration. [facility] EXAMINATION: Fluoroscopic guided right shoulder aspiration [...] minutes DAP 2 cGy cm 2 PROCEDURE: SKILLED LABOR: Everett Ga This procedure was performed by Everett Ga PA-C under indirect supervision of Dr. Dyson. Informed consent was obtained after a detailed explanation of the procedure including risks, benefits, and alternatives. [place]as protocol was observed using maximum sterile barrier [...] and left the Department in stable condition. [facility] Darryl Dyson MD - 12/20/2021 EXAMINATION: Fluoroscopic guided right [...] minutes DAP 2 cGy cm 2 PROCEDURE: SKILLED LABOR: Everett Ga This procedure was performed by Everett Ga PA-C under indirect supervision of Dr. Dyson. Informed consent was obtained after a detailed explanation of the procedure including risks, benefits, and alternatives. [place]as protocol was observed using maximum sterile barrier [...] condition. IMPRESSION: Successful fluoroscopic-guided right shoulder aspiration. [facility] Work Phone: Radiology Study observation (narrative) [employer] Work Phone: IR ARTHR/ASP/INJ MAJOR JT/BU RSA RIGHT WO USOrdered By: Darryl Dyson on 12-20-2021 [facility] Work Phone: No Panel Informationon 12-20 [facility] VANCOMYCIN, RANDOMon 022 Vancomycin Random Date last dose NOT REPORTED [facility] Vancomycin Random Dose amount NOT REPORTED [facility] Vancomycin Random Time last dose NOT REPORTED [facility] Vancomycin Rm 32.8 ug/mL [facility] Comment on above: Higher trough serum vancomycin concentrations of 15-20 ug/mL are recommended for complicated infections such as bacteremia, endocarditis, osteomyelitis, meningitis, and hospital acquired pneumonia. Basic Metabolic Panel w/ Ref rebecca to MGon 12-19-2021 Anion gap [Moles/Vol] 9 mmol/L 9 - 17 mmol/L [facility] Calcium [Mass/Vol] 8.4 mg/dL Low 8.6 - 10. 4 mg/dL [facility] Chloride [Moles/Vol] 101 mmol/L 98 - 10 7 mmol/L [facility] CO2 [Moles/Vol] 22 mmol/L 20 - 31 mmol/L [facility] Creatinine [Mass/Vol] 0.72 mg/dL 0.70 - 1.20 mg/dL [facility] GFR >60 >60 mL/min [facility] GFR Non- >60 >60 mL/min [facility] GFR/1.73 sq M.predicted MDRD (S/P/Bld) [Vol rate/Area] [facility] Comment on above: Average GFR for 30-3 9 years old: 107 mL/min/1.73sq m Chronic Kidney Disease: <60 mL/min/1.73sq m Kidney failure: <15 mL/min/1.73sq m eGFR calculated using average adult body mass. Additional eGFR calculator available at: http://www.[employer]_crcl_2012.htm GFR/1.73 sq M.predicted MDRD (S/P/Bld) [Vol rate/Area] NOT REPORTED [facility] Glucose [Mass/Vol] 106 mg/dL High 70 - 99 mg/dL [facility] Potassium [Moles/Vol] 5.4 mmol/L High 3.7 - 5.3 mmol/L [facility] Sodium [Moles/Vol] 132 mmol/L Low 135 - 144 mmol/L [facility] Urea nitrogen (BldV) [Mass/Vol] 11 mg/dL 6 - 20 mg/dL [facility] Urea nitrogen/Creatinine (Bld) [Mass ratio] NOT REPORTED [facility] C-Reactive Proteinon 022 CRP [Mass/Vol] 45.9 mg/L High 0.0 - 5.0 mg/L [facility] No Panel Informationon 12-19 Interpretation and review of laboratory results Abnormal [facility] POTASSIUMon 12-19-2021 Potassium [Moles/Vol] 4.3 mmol/L 3.7 - 5.3 mmol/L [facility] TSH with Reflexon 12-19-2021 TSH Qn 2.73 m[IU]/L [facility] XR CHEST PORTABLEon 12-19-19 22 Scattered infiltrate s with right-sided PICC line. [facility] RIS CONSOLIDATED EXAMINATION: ONE XRAY VIEW OF [...] with the tip in the mid SVC. [facility] Conrad Posada MD - 12/19/2021 EXAMINATION: ONE XRAY VIEW [...] IMPRESSION: Scattered infiltrates with right-sided PICC line. [facility] Work Phone: Radiology Study observation (narrative) [employer] Work Phone: XR CHEST PORTABLEOrdered By: Conrad Aquino on 12-19-2021 [facility] Work Phone: Basic Metabolic Panel w/ Ref rebecca to MGon 12-18-2021 Anion gap [Moles/Vol] 8 mmol/L Low 9 - 17 mmol/L [facility] Calcium [Mass/Vol] 7.7 mg/dL Low 8.6 - 10. 4 mg/dL [facility] Chloride [Moles/Vol] 100 mmol/L 98 - 10 7 mmol/L [facility] CO2 [Moles/Vol] 20 mmol/L 20 - 31 mmol/L [facility] Creatinine [Mass/Vol] 0.38 mg/dL Low 0.70 - 1.20 mg/dL [facility] GFR >60 >60 mL/min [facility] GFR Non- >60 >60 mL/min [facility] GFR/1.73 sq M.predicted MDRD (S/P/Bld) [Vol rate/Area] [facility] Comment on above: Average GFR for 30-3 9 years old: 107 mL/min/1.73sq m Chronic Kidney Disease: <60 mL/min/1.73sq m Kidney failure: <15 mL/min/1.73sq m eGFR calculated using average adult body mass. Additional eGFR calculator available at: http://www.[employer]/multiple_crcl_2012.htm GFR/1.73 sq M.predicted MDRD (S/P/Bld) [Vol rate/Area] NOT REPORTED [facility] Glucose [Mass/Vol] 121 mg/dL High 70 - 99 mg/dL [facility] Potassium [Moles/Vol] 4.1 mmol/L 3.7 - 5.3 mmol/L [facility] Sodium [Moles/Vol] 128 mmol/L Low 135 - 144 mmol/L [facility] Urea nitrogen (BldV) [Mass/Vol] 10 mg/dL 6 - 20 mg/dL [facility] Urea nitrogen/Creatinine (Bld) [Mass ratio] NOT REPORTED [facility] Body Fluid Cell Count with D ifferentialon 12-18-2021 Appearance, Fluid NOT REPORTED [facility] Basos, Fluid NOT REPORTED 0 % [facility] Color, Fluid NOT REPORTED [facility] Eos, Fluid NOT REPORTED 0 % [facility] [facility] Fluid Diff Comment NOT REPORTED [facility] Lymphocytes, Body Fluid 33 % [facility] [employer] Comment on above: The reference range and other method performance specifications have not been established for this body fluid. The test result must be integrated into the clinical context for interpretation. Monocyte Count, Fluid NOT REPORTED % [facility] Neutrophil Count, Fluid 47 % [facility] Comment on above: The reference range and other method performance specifications have not been established for this body fluid. The test result must be integrated into the clinical context for interpretation. Other Cells, Fluid MONOCYTES % [facility] [facility] Comment on above: The reference range and other method performance specifications have not been established for this body fluid. The test result must be integrated into the clinical context for interpretation. RBC, Fluid 5000 /mm3 [facility] Comment on above: The reference range and other method performance specifications have not been established for this body fluid. The test result must be integrated into the clinical context for interpretation. Specimen type Nom (Spec) .SYNOVIAL FLUID [facility] Comment on above: LEFT ANKLE WBC, Fluid 1126 /mm3 [facility] Comment on above: The reference range and other method performance specifications have not been established for this body fluid. The test result must be integrated into the clinical context for interpretation. [facility] Appearance, Fluid NOT REPORTED [employer] [facility] Basos, Fluid NOT REPORTED 0 % [facility] th Color, Fluid NOT REPORTED [facility] Eos, Fluid NOT REPORTED 0 % [facility] Fluid Diff Comment NOT REPORTED [employer] Lymphocytes, Body Fluid 9 % [facility] Comment on above: The reference range and other method performance specifications have not been established for this body fluid. The test result must be integrated into the clinical context for interpretation. Monocyte Count, Fluid NOT REPORTED % [facility] Neutrophil Count, Fluid 89 % [facility] Comment on above: The reference range and other method performance specifications have not been established for this body fluid. The test result must be integrated into the clinical context for interpretation. Other Cells, Fluid MONOCYTES % [facility] Comment on above: The reference range and other method performance specifications have not been established for this body fluid. The test result must be integrated into the clinical context for interpretation. RBC, Fluid 07323 /mm3 [facility] Comment on above: The reference range and other method performance specifications have not been established for this body fluid. The test result must be integrated into the clinical context for interpretation. Specimen type Nom (Spec) LEFT [facility] Comment on above: .WRIST WBC, Fluid 15524 /mm3 [facility] [employer] Comment on above: The reference range and other method performance specifications have not been established for this body fluid. The test result must be integrated into the clinical context for interpretation. [facility] Body Fluid Crystalon 022 Crystals, Fluid Negative NEGATIVE [facility] Comment on above: NO CRYSTALS SEEN Specimen type Nom (Spec) .SYNOVIAL FLUID [facility] Comment on above: LEFT ANKLE [facility] Crystals, Fluid Negative NEGATIVE [facility] Comment on above: NO CRYSTALS SEEN Specimen type Nom (Spec) .SYNOVIAL FLUID [facility] Crystals, Fluid Negative NEGATIVE [facility] Comment on above: NO CRYSTALS SEEN Specimen type Nom (Spec) .SYNOVIAL FLUID [facility] Culture, Blood 1 2 Bacteria identified Cx Nom (Unsp spec) Positive Abnormal [employer] [facility] Bacteria identified Cx Nom (Unsp spec) DIRECT GRAM STAIN FROM BOTTLE: GRAM POSITIVE COCCI IN CLUSTERS [facility] Bacteria identified Cx Nom (Unsp spec) METHICILLIN RESISTANT STAPHYLOCOCCUS AUREUS Abnormal [facility] Bacteria identified Cx Nom (Unsp spec) (NOTE) Direct Gram Stain from bottle result called to and read back by: ANSELMO Hernández on 12/17/21 at 01:35 [facility] Interpretation and review of laboratory results Abnormal [facility] Special Requests 20ML R HAND Lily cuellar Specimen Description .BLOOD [facility] [place] No Panel Informationon 12-18 Interpretation and review of laboratory results Abnormal [facility] VANCOMYCIN, TROUGHon 022 Vancomycin Tr 8.6 ug/mL Low 10.0 - 20.0 ug/mL [facility] Comment on above: Higher trough serum vancomycin concentrations of 15-20 ug/mL are recommended for complicated infections such as bacteremia, endocarditis, osteomyelitis, meningitis, and hospital acquired pneumonia. Vancomycin Trough Date last dose NOT REPORTED [facility] Vancomycin Trough Dose amount NOT REPORTED [facility] [employer] Vancomycin Trough Time last dose NOT REPORTED [facility] Basic Metabolic Panel w/ Ref rebecca to MGon 12-17-2021 Anion gap [Moles/Vol] 5 mmol/L Low 9 - 17 mmol/L [facility] Calcium [Mass/Vol] 7.9 mg/dL Low 8.6 - 10. 4 mg/dL [facility] Chloride [Moles/Vol] 102 mmol/L 98 - 10 7 mmol/L [facility] CO2 [Moles/Vol] 24 mmol/L 20 - 31 mmol/L [facility] Creatinine [Mass/Vol] 0.52 mg/dL Low 0.70 - 1.20 mg/dL [facility] GFR >60 >60 mL/min [facility] [employer] GFR Non- >60 >60 mL/min [facility] [employer] GFR/1.73 sq M.predicted MDRD (S/P/Bld) [Vol rate/Area] [facility] Comment on above: Average GFR for 30-3 9 years old: 107 mL/min/1.73sq m Chronic Kidney Disease: <60 mL/min/1.73sq m Kidney failure: <15 mL/min/1.73sq m eGFR calculated using average adult body mass. Additional eGFR calculator available at: http://www.[employer]Stream/multiple_crcl_2012.htm GFR/1.73 sq M.predicted MDRD (S/P/Bld) [Vol rate/Area] NOT REPORTED [facility] Glucose [Mass/Vol] 97 mg/dL 70 - 99 mg/dL [facility] Potassium [Moles/Vol] 4.7 mmol/L 3.7 - 5.3 mmol/L [facility] Sodium [Moles/Vol] 131 mmol/L Low 135 - 144 mmol/L [facility] Urea nitrogen (BldV) [Mass/Vol] 9 mg/dL 6 - 20 mg/dL [facility] Urea nitrogen/Creatinine (Bld) [Mass ratio] NOT REPORTED [facility] C-Reactive Proteinon 022 CRP [Mass/Vol] 56.1 mg/L High 0.0 - 5.0 mg/L [facility] CBC Auto Differentialon Absolute Eos # 0.12 [facility] th Absolute Immature Granulocyte 0.06 [facility] Absolute Lymph # 1.25 [facility] alth Absolute [place] # 0.68 [facility] Basophils (Bld) [#/Vol] 0.06 10*3/uL [facility] Basophils/100 WBC (Bld) 1 % 0 - 2 % [facility] Differential Type NOT REPORTED [facility] Eosinophils/100 WBC (Bld) 2 % 1 - 4 % [facility] Hematocrit (Bld) [Volume fraction] 28.4 % Low 40.7 - 50.3 % [facility] Hemoglobin.gastrointesti nal spec 1 Ql (Stl) 9.4 g/dL Low 13.0 - 17.0 g/dL [facility] Immature granulocytes/100 WBC (Bld) 1 % High 0 [facility] Interpretation and review of laboratory results Abnormal [facility] Lymphocytes/100 WBC (Bld) 20 % Low 24 - 43 % [facility] MCH (RBC) [Entitic mass] 28.0 pg 25. 2 - 33.5 pg [facility] MCHC (RBC) [Mass/Vol] 33.1 g/dL 28.4 - 34.8 g/dL [facility] MCV (RBC) [Entitic vol] 84.5 fL 82.6 - 102.9 fL [facility] Monocytes/100 WBC (Bld) 11 % 3 - 12 % [facility] NRBC Automated 0.0 0.0 per 100 WBC [facility] Platelet distribution width (Bld) [Ratio] 14.9 % High 11.8 - 14.4 % [facility] Platelet Estimate NOT REPORTED [facility] [employer] Platelet mean volume (Bld) [Entitic vol] 9.9 fL 8.1 - 13.5 fL [facility] Platelets (Bld) [#/Vol] 188 10*3/uL [facility] RBC (Bld) [#/Vol] 3.36 10*6/uL Low 4.21 - 5.7 7 m/uL [facility] RBC (Bld) [#/Vol] ANISOCYTOSIS PRESENT [facility] [employer] Segmented neutrophils/100 WBC (Bld) 65 % 36 - 65 % [facility] [employer] [facility] Absolute 4.04 [facility] WBC (Bld) [#/Vol] 6.2 10*3/uL [facility] WBC (Bld) [#/Vol] NOT REPORTED [facility] No Panel Informationon 12-17 Interpretation and review of laboratory results Abnormal [facility] Basic Metabolic Panel w/ Ref rebecca to MGon 12-16-2021 Anion gap [Moles/Vol] 8 mmol/L Low 9 - 17 mmol/L [facility] [employer] Calcium [Mass/Vol] 7.6 mg/dL Low 8.6 - 10. 4 mg/dL [facility] Chloride [Moles/Vol] 97 mmol/L Low 98 - 10 7 mmol/L [facility] CO2 [Moles/Vol] 23 mmol/L 20 - 31 mmol/L [facility] [employer] Creatinine [Mass/Vol] 0.53 mg/dL Low 0.70 - 1.20 mg/dL [facility] [employer] GFR >60 >60 mL/min [facility] [employer] GFR Non- >60 >60 mL/min [facility] [employer] GFR/1.73 sq M.predicted MDRD (S/P/Bld) [Vol rate/Area] [facility] Comment on above: Average GFR for 30-3 9 years old: 107 mL/min/1.73sq m Chronic Kidney Disease: <60 mL/min/1.73sq m Kidney failure: <15 mL/min/1.73sq m eGFR calculated using average adult body mass. Additional eGFR calculator available at: http://www.[employer]Stream/multiple_crcl_2012.htm GFR/1.73 sq M.predicted MDRD (S/P/Bld) [Vol rate/Area] NOT REPORTED [facility] Glucose [Mass/Vol] 117 mg/dL High 70 - 99 mg/dL [facility] Interpretation and review of laboratory results Abnormal [facility] Potassium [Moles/Vol] 4.1 mmol/L 3.7 - 5.3 mmol/L [facility] Sodium [Moles/Vol] 128 mmol/L Low 135 - 144 mmol/L [facility] Urea nitrogen (BldV) [Mass/Vol] 10 mg/dL 6 - 20 mg/dL [facility] Urea nitrogen/Creatinine (Bld) [Mass ratio] NOT REPORTED [facility] Body Fluid Cell Count with D ifferentialon 12-16-2021 Appearance, Fluid NOT REPORTED [facility] Basos, Fluid NOT REPORTED 0 % [facility] Color, Fluid NOT REPORTED [facility] Eos, Fluid NOT REPORTED 0 % [facility] Fluid Diff Comment NOT REPORTED [facility] Lymphocytes, Body Fluid 9 % [facility] Comment on above: The reference range and other method performance specifications have not been established for this body fluid. The test result must be integrated into the clinical context for interpretation. Monocyte Count, Fluid NOT REPORTED % [facility] Neutrophil Count, Fluid 91 % [facility] Comment on above: The reference range and other method performance specifications have not been established for this body fluid. The test result must be integrated into the clinical context for interpretation. Other Cells, Fluid NOT REPORTED % [facility] RBC, Fluid <3000 /mm3 [facility] Comment on above: The reference range and other method performance specifications have not been established for this body fluid. The test result must be integrated into the clinical context for interpretation. Specimen type Nom (Spec) RIGHT [facility] Comment on above: .KNEE WBC, Fluid 6514 /mm3 [facility] Comment on above: The reference range and other method performance specifications have not been established for this body fluid. The test result must be integrated into the clinical context for interpretation. [facility] CBC WITH AUTO DIFFERENTIALon 12-16-2021 Absolute Eos # 0.11 [facility] th Absolute Immature Granulocyte <0.03 [facility] Absolute Lymph # 1.12 [facility] alth Absolute [place] # 0.75 [facility] lt Basophils (Bld) [#/Vol] 0.04 10*3/uL [facility] Basophils/100 WBC (Bld) 1 % 0 - 2 % [facility] Differential Type NOT REPORTED [facility] Eosinophils/100 WBC (Bld) 2 % 1 - 4 % [facility] Hematocrit (Bld) [Volume fraction] 29.2 % Low 40.7 - 50.3 % [facility] Hemoglobin.gastrointesti nal spec 1 Ql (Stl) 9.7 g/dL Low 13.0 - 17.0 g/dL [facility] Immature granulocytes/100 WBC (Bld) 0 % 0 [facility] Interpretation and review of laboratory results Abnormal [facility] Lymphocytes/100 WBC (Bld) 15 % Low 24 - 43 % [facility] MCH (RBC) [Entitic mass] 27.8 pg 25. 2 - 33.5 pg [facility] MCHC (RBC) [Mass/Vol] 33.2 g/dL 28.4 - 34.8 g/dL [facility] MCV (RBC) [Entitic vol] 83.7 fL 82.6 - 102.9 fL [facility] Monocytes/100 WBC (Bld) 10 % 3 - 12 % [facility] [employer] NRBC Automated 0.0 0.0 per 100 WBC [facility] Platelet distribution width (Bld) [Ratio] 15.0 % High 11.8 - 14.4 % [facility] Platelet Estimate NOT REPORTED [facility] Platelet mean volume (Bld) [Entitic vol] 10.0 fL 8.1 - 13.5 fL [facility] Platelets (Bld) [#/Vol] 163 10*3/uL [facility] RBC (Bld) [#/Vol] 3.49 10*6/uL Low 4.21 - 5.7 7 m/uL [facility] RBC (Bld) [#/Vol] ANISOCYTOSIS PRESENT [facility] Segmented neutrophils/100 WBC (Bld) 72 % High 36 - 65 % [facility] [employer] [facility] Absolute 5.34 [facility] WBC (Bld) [#/Vol] 7.4 10*3/uL [facility] WBC (Bld) [#/Vol] NOT REPORTED [facility] Culture, Blood 1 2 Bacteria identified Cx Nom (Unsp spec) Positive Abnormal [facility] [employer] Bacteria identified Cx Nom (Unsp spec) DIRECT GRAM STAIN FROM BOTTLE: GRAM POSITIVE COCCI IN CLUSTERS [facility] [employer] Bacteria identified Cx Nom (Unsp spec) METHICILLIN RESISTANT STAPHYLOCOCCUS AUREUS For susceptibility, refer to previous culture. Abnormal [facility] Bacteria identified Cx Nom (Unsp spec) (NOTE) Direct Gram Stain from bottle result called to and read back by: ANSELMO Dewitt on 12/14/21 at 17:45 [facility] Interpretation and review of laboratory results Abnormal [facility] Special Requests L FA 7CC Lily Starks alth Specimen Description .BLOOD [facility] No Panel Informationon 12-16 Radiology Study observation (narrative) Lily mcginnis Work Phone: Sedimentation Rateon 022 Interpretation and review of laboratory results Abnormal [facility] Sed Rate 32 mm High 0 - 15 mm [facility] VL DUP LOWER EXTREMITY VENOU S LEFTon 12-16-2021 Gordo Juárez MD - 12/16/2021 [facility] Vascular Lower Extremities DVT Study Procedure Patient Name COTY Date of Study 12/16/2021 TIP Plata Date of 1980 Gender Male Age 41 year(s) Race Room Number 0316 Height: 73 inch, 185.42 cm Corporate ID [id number] Weight: 170 pounds, 77.1 kg # Patient Acct [id number] BSA: 2.01 m^2 BMI: 22.43 kg/m^2 # MR # [id number] Investigator Vivienne Roach RVT Interpreting Physician Gordo Juárez [...] !None ! + (more content not included)... [facility] Phone: [facility] Phone: Radiology Study observation (narrative) [facility] Phone: VL DUP UPPER EXTREMITY VENOU S LEFTon 12-16-2021 Gordo Juárez MD - 12/16/2021 [facility] Vascular Upper Extremities Veins Procedure Patient Name COTY Date of Study 12/16/2021 TIP Plata Date of 1980 Gender Male Age 41 year(s) Race Room Number 0316 Height: 73 inch, 185.42 cm Corporate ID [id number] Weight: 170 pounds, 77.1 kg # Patient Acct [id number] BSA: 2.01 m^2 BMI: 22.43 kg/m^2 # MR # [id number] Investigator Vivienne Roach Florentino Interpreting Physician Gordo Juárez Referring Referring Physician [...] Measurements + +---- ------+ -+ + !Location !Visualized!Andrewi luiz!Thrombosis! + +---- ------+ -+ + !Prox IJV [...] ! + --------- (more content not included)... [facility] Phone: Radiology Study observation (narrative) [employer] Work Phone: VL DUP UPPER EXTREMITY VENOU S LEFTOrdered By: Gordo Juárez on 12-16-2021 [facility] Phone: XR KNEE RIGHT (3 VIEWS)on No acute abnormality of the knee. [facility] RIS CONSOLIDATED EXAMINATION: THREE XRAY VIEWS OF THE RIGHT KNEE 12/16/2021 2:02 pm COMPARISON: None. HISTORY: ORDERING SYSTEM PROVIDED HISTORY: Trauma/Fracture TECHNOLOGIST PROVIDED HISTORY: Trauma/Fracture FINDINGS: No evidence of acute fracture or dislocation. No focal osseous lesion. No evidence of joint effusion. No focal soft tissue abnormality. [facility] Addy Gates MD - 12/16/2021 EXAMINATION: THREE XRAY VIEWS OF THE RIGHT KNEE 12/16/2021 2:02 pm COMPARISON: None. HISTORY: ORDERING SYSTEM PROVIDED HISTORY: Trauma/Fracture TECHNOLOGIST PROVIDED HISTORY: Trauma/Fracture FINDINGS: No evidence of acute fracture or dislocation. No focal osseous lesion. No evidence of joint effusion. No focal soft tissue abnormality. IMPRESSION: No acute abnormality of the knee. [facility] Phone: XR KNEE RIGHT (3 VIEWS)Order ed By: Addy Gates on 12-16-2021 [employer] Phone: XR SHOULDER RIGHT (MIN 2 VIE WS)on 12-16-2021 No acute osseous abnormality. [facility] EXAMINATION: THREE XRAY VIEWS OF THE RIGHT SHOULDER 12/16/2021 2:02 pm COMPARISON: None. HISTORY: ORDERING SYSTEM PROVIDED HISTORY: Trauma/Fracture TECHNOLOGIST PROVIDED HISTORY: Trauma/Fracture FINDINGS: Glenohumeral joint is normally aligned. No evidence of acute fracture or dislocation. No abnormal periarticular calcifications. The AC joint is unremarkable in appearance. Right PICC with tip in the superior vena cava. [facility] Addy Gates MD - 12/16/2021 EXAMINATION: [...] vena cava. IMPRESSION: No acute osseous abnormality. [employer] Phone: [employer]opay Phone: C-REACTIVE PROTEINon 022 CRP [Mass/Vol] 62.9 mg/L High 0.0 - 5.0 mg/L [facility] CBC WITH AUTO DIFFERENTIALon 12-15-2021 Absolute Eos # 0.25 [facility] th Absolute Immature Granulocyte 0.08 [facility] Absolute Lymph # 1.25 [facility] alth Absolute [place] [facility].83 [facility] Bas[facility] (Bld) [#/Vol] 0.08 10*3/uL [facility] Basophils/100 WBC (Bld) 1 % 0 - 2 % [facility] Differential Type NOT REPORTED [facility] Eosinophils/100 WBC (Bld) 3 % 1 - 4 % [facility] Hematocrit (Bld) [Volume fraction] 29.7 % Low 40.7 - 50.3 % [facility] Hemoglobin.gastrointesti nal spec 1 Ql (Stl) 9.8 g/dL Low 13.0 - 17.0 g/dL [facility] Immature granulocytes/100 WBC (Bld) 1 % High 0 [facility] Interpretation and review of laboratory results Abnormal [facility] Lymphocytes/100 WBC (Bld) 15 % Low 24 - 43 % [facility] MCH (RBC) [Entitic mass] 27.8 pg 25. 2 - 33.5 pg [facility] MCHC (RBC) [Mass/Vol] 33.0 g/dL 28.4 - 34.8 g/dL [facility] MCV (RBC) [Entitic vol] 84.4 fL 82.6 - 102.9 fL [facility] Monocytes/100 WBC (Bld) 10 % 3 - 12 % [facility] [employer] Morphology Adis (Bld) [Interp] ANISOCYTOSIS PRESENT [facility] h NRBC Automated 0.0 0.[address] [facility] [employer] Platelet distribution width (Bld) [Ratio] 15.0 % High 11.8 - 14.4 % [facility] [employer] Platelet Estimate NOT REPORTED [facility] [employer] Platelet mean volume (Bld) [Entitic vol] 10.5 fL 8.1 - 13.[address] [facility] [employer] Platelets (Bld) [#/Vol] 140 10*3/uL [facility] [employer] RBC (Bld) [#/Vol] 3.52 10*6/uL Low 4.21 - 5.7 7 m/uL [facility] RBC (Bld) [#/Vol] NOT REPORTED [facility] Segmented neutrophils/100 WBC (Bld) 70 % High 36 - 65 % [facility] [employer] Segs [facility].81 [facility] WBC (Bld) [#/Vol] 8.3 10*3/uL [facility] WBC (Bld) [#/Vol] NOT REPORTED [facility] CREATININE, RANDOM URINEon 0 12-15-2021 Creatinine, Ur 64.4 mg/dL 39.0 - 259.0 mg/dL [facility] Catheterization and angiogra phy procedure details panelOrdered By: Unknown Result on 12-15-2021 [facility] Comprehensive Metabolic Pane l w/ Reflex to MGon 12-15-2021 Albumin [Mass/Vol] 1.9 g/dL Low 3.5 - 5.2 g/dL [facility] Albumin/Globulin [Mass ratio] 0.5 {ratio} Low [facility] ALP (Bld) [Catalytic activity/Vol] 117 U/L 40 - 129 U/L [facility] ALT [Catalytic activity/Vol] 64 U/L High 5 - 41 U/L [facility] Anion gap [Moles/Vol] 7 mmol/L Low 9 - 17 mmol/L [facility] AST [Catalytic activity/Vol] 55 U/L High <40 [facility] [employer] Bilirubin [Mass/Vol] 0.38 mg/dL 0.3 - 1 .2 mg/dL [facility] Calcium [Mass/Vol] 7.0 mg/dL Low 8.6 - 10. 4 mg/dL [facility] Chloride [Moles/Vol] 100 mmol/L 98 - 10 7 mmol/L [facility] CO2 [Moles/Vol] 22 mmol/L 20 - 31 mmol/L [facility] Creatinine [Mass/Vol] 0.55 mg/dL Low 0.70 - 1.20 mg/dL [facility] Free PSA/Total PSA [Mass fraction] 5.7 g/dL Low 6.4 - 8.3 g/dL [facility] [employer] GFR >60 >60 mL/min [facility] [employer] GFR Non- >60 >60 mL/min [facility] GFR/1.73 sq M.predicted MDRD (S/P/Bld) [Vol rate/Area] [facility] Comment on above: Average GFR for 30-3 9 years old: 107 mL/min/1.73sq m Chronic Kidney Disease: <60 mL/min/1.73sq m Kidney failure: <15 mL/min/1.73sq m eGFR calculated using average adult body mass. Additional eGFR calculator available at: http://www.[employer]/multiple_crcl_2012.htm GFR/1.73 sq M.predicted MDRD (S/P/Bld) [Vol rate/Area] NOT REPORTED [facility] Glucose [Mass/Vol] 111 mg/dL High 70 - 99 mg/dL [facility] Potassium [Moles/Vol] 4.2 mmol/L 3.7 - 5.3 mmol/L [facility] Sodium [Moles/Vol] 129 mmol/L Low 135 - 144 mmol/L [facility] Urea nitrogen (BldV) [Mass/Vol] 9 mg/dL 6 - 20 mg/dL [facility] Urea nitrogen/Creatinine (Bld) [Mass ratio] NOT REPORTED [facility] Culture, Blood 1on 2 Bacteria identified Cx Nom (Unsp spec) Positive Abnormal [facility] Bacteria identified Cx Nom (Unsp spec) DIRECT GRAM STAIN FROM BOTTLE: GRAM POSITIVE COCCI IN CLUSTERS [facility] Bacteria identified Cx Nom (Unsp spec) Staphylococcus aureus Detected: mecA/C and MREJ Gene Detected- Methicillin Resistant Organism Methodology- Polymerase Chain Reaction (PCR) Abnormal [facility] Bacteria identified Cx Nom (Unsp spec) METHICILLIN RESISTANT STAPHYLOCOCCUS AUREUS Abnormal [facility] Bacteria identified Cx Nom (Unsp spec) (NOTE) Direct Gram Stain from bottle and Polymerase Chain Reaction (PCR) results called to and read back by:DIANE Martinez AT 1440 ON 12/14/2021 [facility] Interpretation and review of laboratory results Abnormal [facility] Special Requests RT AC 10 ML [facility] Specimen Description .BLOOD [facility] No Panel Informationon 12-15 [facility] Interpretation and review of laboratory results Abnormal [facility] Osmolality, Urineon 12-15-19 22 Osmolality, Ur 503 [facility] SODIUM, URINE, RANDOMon Sodium (U) [Moles/Vol] 140 mmol/L [facility] Comment on above: No normal range esta blished. Vancomycin, Randomon 022 Vancomycin Random Date last dose NOT REPORTED [facility] Vancomycin Random Dose amount NOT REPORTED [facility] Vancomycin Random Time last dose NOT REPORTED [facility] Vancomycin Rm 14 ug/mL [facility] Francesca reyez Comment on above: Higher trough serum vancomycin concentrations of 15-20 ug/mL are recommended for complicated infections such as bacteremia, endocarditis, osteomyelitis, meningitis, and hospital acquired pneumonia. [facility] Basic Metabolic Panel w/ Ref rebecca to MGon 12-14-2021 Anion gap [Moles/Vol] 6 mmol/L Low 9 - 17 mmol/L [facility] Calcium [Mass/Vol] 7.6 mg/dL Low 8.6 - 10. 4 mg/dL [facility] Chloride [Moles/Vol] 106 mmol/L 98 - 10 7 mmol/L [facility] CO2 [Moles/Vol] 23 mmol/L 20 - 31 mmol/L [facility] Creatinine [Mass/Vol] 0.55 mg/dL Low 0.70 - 1.20 mg/dL [facility] GFR >60 >60 mL/min [facility] GFR Non- >60 >60 mL/min [facility] GFR/1.73 sq M.predicted MDRD (S/P/Bld) [Vol rate/Area] [facility] Comment on above: Average GFR for 30-3 9 years old: 107 mL/min/1.73sq m Chronic Kidney Disease: <60 mL/min/1.73sq m Kidney failure: <15 mL/min/1.73sq m eGFR calculated using average adult body mass. Additional eGFR calculator available at: http://www.[employer].ScoreStream/multiple_crcl_2012.htm GFR/1.73 sq M.predicted MDRD (S/P/Bld) [Vol rate/Area] NOT REPORTED [facility] Glucose [Mass/Vol] 111 mg/dL High 70 - 99 mg/dL [facility] Interpretation and review of laboratory results Abnormal [facility] Potassium [Moles/Vol] 3.6 mmol/L Low 3.7 - 5.3 mmol/L [facility] Sodium [Moles/Vol] 135 mmol/L 135 - 144 mmol/L [facility] Urea nitrogen (BldV) [Mass/Vol] 13 mg/dL 6 - 20 mg/dL [facility] Urea nitrogen/Creatinine (Bld) [Mass ratio] NOT REPORTED [facility] CBC auto differentialon 02-0 Absolute Eos # 0.20 [facility] th Absolute Immature Granulocyte 0.05 [facility] Absolute Lymph # 1.04 Low [facility] alth Absolute [place] # 0.87 [facility] Basophils (Bld) [#/Vol] 0.03 10*3/uL [facility] Basophils/100 WBC (Bld) 0 % 0 - 2 % [facility] Differential Type NOT REPORTED [facility] Eosinophils/100 WBC (Bld) 2 % 1 - 4 % [facility] Hematocrit (Bld) [Volume fraction] 30.8 % Low 40.7 - 50.3 % [facility] Hemoglobin.gastrointesti nal spec 1 Ql (Stl) 10.3 g/dL Low 13.0 - 17.0 g/dL [facility] Immature granulocytes/100 WBC (Bld) 1 % High 0 [facility] Interpretation and review of laboratory results Abnormal [facility] Lymphocytes/100 WBC (Bld) 11 % Low 24 - 43 % [facility] MCH (RBC) [Entitic mass] 27.9 pg 25. 2 - 33.5 pg [facility] MCHC (RBC) [Mass/Vol] 33.4 g/dL 28.4 - 34.8 g/dL [facility] MCV (RBC) [Entitic vol] 83.5 fL 82.6 - 102.9 fL [facility] Monocytes/100 WBC (Bld) 9 % 3 - 12 % [facility] NRBC Automated 0.0 0.0 per 100 WBC [facility] Platelet distribution width (Bld) [Ratio] 14.7 % High 11.8 - 14.4 % [facility] Platelet Estimate NOT REPORTED [facility] Platelet mean volume (Bld) [Entitic vol] 10.8 fL 8.1 - 13.5 fL [facility] Platelets (Bld) [#/Vol] 150 10*3/uL [facility] RBC (Bld) [#/Vol] 3.69 10*6/uL Low 4.21 - 5.7 7 m/uL [facility] RBC (Bld) [#/Vol] ANISOCYTOSIS PRESENT [facility] Segmented neutrophils/100 WBC (Bld) 77 % High 36 - 65 % [facility] Segs Absolute 7.03 [facility] h WBC (Bld) [#/Vol] 9.2 10*3/uL [facility] WBC (Bld) [#/Vol] NOT REPORTED [facility] CULTURE BLOODon 12-14-2021 Microscopic examination of blood, [...] F Oxacillin >=4 R F Normal [facility] Comment on above: Performed By: #### [facility] #### [facility] [address] [place] [address] Dr. Amanda Shaverime-INRon 12-14-2021 INR Coag (Bld) [Relative time] 1.2 {INR} [facility] Comment on above: Therapeutic Range: Moderate Anticoagulant Intensity: INR = 2.0-3.0 High Anticoagulant Intensity: INR = 2.5-3.5 Interpretation and review of laboratory results Abnormal [facility] PT Coag (PPP) [Time] [address] [facility] Basic Metabolic Panel w/ Ref rebecca to MGon 12-13-2021 Anion gap [Moles/Vol] 9 mmol/L 9 - 17 mmol/L [facility] Calcium [Mass/Vol] 7.4 mg/dL Low 8.6 - 10. 4 mg/dL [facility] Chloride [Moles/Vol] 104 mmol/L 98 - 10 7 mmol/L [facility] CO2 [Moles/Vol] 22 mmol/L 20 - 31 mmol/L [facility] Creatinine [Mass/Vol] 0.56 mg/dL Low 0.70 - 1.20 mg/dL [facility] GFR >60 >60 mL/min [facility] GFR Non- >60 >60 mL/min [facility] GFR/1.73 sq M.predicted MDRD (S/P/Bld) [Vol rate/Area] [facility] Comment on above: Average GFR for 30-3 9 years old: 107 mL/min/1.73sq m Chronic Kidney Disease: <60 mL/min/1.73sq m Kidney failure: <15 mL/min/1.73sq m eGFR calculated using average adult body mass. Additional eGFR calculator available at: http://www.[employer]/multiple_crcl_2012.htm GFR/1.73 sq M.predicted MDRD (S/P/Bld) [Vol rate/Area] NOT REPORTED [facility] Glucose [Mass/Vol] 121 mg/dL High 70 - 99 mg/dL [facility] Interpretation and review of laboratory results Abnormal [facility] Potassium [Moles/Vol] 3.4 mmol/L Low 3.7 - 5.3 mmol/L [facility] Sodium [Moles/Vol] 135 mmol/L 135 - 144 mmol/L [facility] Urea nitrogen (BldV) [Mass/Vol] 9 mg/dL 6 - 20 mg/dL [facility] Urea nitrogen/Creatinine (Bld) [Mass ratio] NOT REPORTED [facility] C-Reactive Proteinon 022 CRP [Mass/Vol] 110.3 mg/L High 0.0 - 5.0 mg/L [facility] Interpretation and review of laboratory results Abnormal [facility] CBC AUTO DIFFon 12-13-2021 BASO # 0.0 103/ul Normal 0.0-0.1 [facility] Comment on above: Performed By: #### V ANCT #### [facility] [address] [address] [address] Amanda Cottrell Basophils/100 WBC (Bld) 0.2 % Normal 0.2-2.0 [facility] Comment on above: Performed By: #### V ANCT #### [facility] [address] [address] [address] Amanda Cottrell EO # 0.1 103/ul Normal 0.0-0.7 [facility] Comment on above: Performed By: #### V ANCT #### [facility] [address] [place] [address] Dr. Amanda Cottrell Eosinophils/100 WBC (Bld) 1.0 % Normal 0.9-7.0 [facility] Comment on above: Performed By: #### V ANCT #### [facility] [address] [place] [address] Dr. Amanda Cottrell Erythrocyte distribution width (RBC) [Ratio] 14.6 % Normal 11.0-15.0 [facility] Comment on above: Performed By: #### V ANCT #### [facility] [address] [place] [address] Dr. Amanda Cottrell Hematocrit (Bld) [Volume fraction] 31.3 % Critically low 42.0-54.0 [facility] Comment on above: Performed By: #### V ANCT #### [facility] [address] [place] [address] Dr. Amanda Cottrell Hemoglobin (Bld) [Mass/Vol] 10.4 g/dL Critically low 14.0-18.0 [facility] Comment on above: Performed By: #### V ANCT #### [facility] [address] [place] [address] Dr. Amanda Cottrell IG # 0.07 10e3/ul Critically high 0.00-0.03 [facility] Comment on above: Performed By: #### V ANCT #### [facility] [address] [place] [address] Dr. Amanda Cottrell IG % 0.8 % Critically high 0.0-0.5 [facility] Comment on above: Performed By: #### V ANCT #### [facility] [address] [place] [address] Dr. Amanda Cottrell LYMPH # 0.5 103/ul Critically low 1.2-3.8 [facility] Comment on above: Performed By: #### V ANCT #### [facility] [address] [place] [address] Dr. Amanda Cottrell Lymphocytes/100 WBC (Bld) 5.0 % Critically low 20.5-60.0 [facility] Comment on above: Performed By: #### V ANCT #### [facility] [address] [place] [address] Dr. Amanda Cottrell MANUAL DIFF REQ NO Normal [facility] Comment on above: Performed By: #### V ANCT #### [facility] [address] [place] [address] Dr. Amanda Cottrell MCH (RBC) [Entitic mass] 27.5 pg Normal 25.9-34.0 [facility] Comment on above: Performed By: #### V ANCT #### [facility] [address] [place] [address] Dr. Amanda Cottrell MCHC (RBC) [Mass/Vol] 33.2 g/dL Normal 29.9-35.2 [facility] Comment on above: Performed By: #### V ANCT #### [facility] [address] [place] [address] Dr. Amanda Cottrell MCV (RBC) [Entitic vol] 82.8 fL Normal 80.0-94.0 [facility] Comment on above: Performed By: #### V ANCT #### [facility] [address] [place] [address] Dr. Amanda Cottrell MONO # 0.7 103/ul Normal 0.3-0.8 [facility] Comment on above: Performed By: #### V ANCT #### [facility] [address] [place] [address] Dr. Amanda Cottrell Monocytes/100 WBC (Bld) 7.9 % Normal 1.7-12.0 [facility] Comment on above: Performed By: #### V ANCT #### [facility] [address] [place] [address] Dr. Amanda Cottrell NEUT # 7.9 103/ul Critically high 1.4-6.5 [facility] Comment on above: Performed By: #### V ANCT #### [facility] [address] [place] [address] Dr. Amanda Cottrell Neutrophils/100 WBC (Bld) 85.1 % Critically high 43.0-75.0 [facility] Comment on above: Performed By: #### V ANCT #### [facility] [address] [address] [address] Amanda Cottrell Platelet mean volume (Bld) [Entitic vol] 11.1 fL Normal 9.5-13.5 [facility] Comment on above: Performed By: #### V ANCT #### [facility] [address] [address] [address] Amanda Cottrell PLT 98 103/ul Critically low 150-450 [facility] Comment on above: Performed By: #### V ANCT #### [facility] [address] [address] [address] Amanda Cottrell RBC 3.78 106/ul Critically low 4.70-6.10 [facility] Comment on above: Performed By: #### V ANCT #### [facility] [address] [address] [address] Amanda Cottrell WBC 9.2 103/ul Normal 4.0-11.0 [facility] Comment on above: Performed By: #### V ANCT #### [facility] [id number] Amanda Cottrell CBC Auto Differentialon Absolute Eos # 0.14 [facility] Absolute Immature Granulocyte 0.03 [facility] Absolute Lymph # 0.86 Low [facility] alth Absolute [place] # 0.92 [facility] lt Basophils (Bld) [#/Vol] 10*3/uL [facility] Basophils/100 WBC (Bld) 0 % 0 - 2 % [facility] Differential Type NOT REPORTED [facility] Eosinophils/100 WBC (Bld) 2 % 1 - 4 % [facility] Hematocrit (Bld) [Volume fraction] 28.9 % Low 40.7 - 50.3 % [facility] Hemoglobin.gastrointesti nal spec 1 Ql (Stl) 10.1 g/dL Low 13.0 - 17.0 g/dL [facility] Immature granulocytes/100 WBC (Bld) 0 % 0 [facility] Interpretation and review of laboratory results Abnormal [facility] Lymphocytes/100 WBC (Bld) 10 % Low 24 - 43 % [facility] MCH (RBC) [Entitic mass] 28.3 pg 25. 2 - 33.5 pg [facility] MCHC (RBC) [Mass/Vol] 34.9 g/dL High 28.4 - 34.8 g/dL [facility] MCV (RBC) [Entitic vol] 81.0 fL Low 82.6 - 102.9 fL [facility] Monocytes/100 WBC (Bld) 10 % 3 - 12 % [facility] NRBC Automated 0.0 0.0 per 100 WBC [facility] Platelet distribution width (Bld) [Ratio] 14.5 % High 11.8 - 14.4 % [facility] Platelet Estimate NOT REPORTED [facility] Platelet mean volume (Bld) [Entitic vol] NOT REPORTED 8.1 - 13.5 fL [facility] Platelets (Bld) [#/Vol] See Reflexed IPF Result [facility] RBC (Bld) [#/Vol] 3.57 10*6/uL Low 4.21 - 5.7 7 m/uL [facility] RBC (Bld) [#/Vol] ANISOCYTOSIS PRESENT [facility] Comment on above: MICROCYTOSIS PRESENT Segmented neutrophils/100 WBC (Bld) 78 % High 36 - 65 % [facility] Segs Absolute 7.08 [facility] h WBC (Bld) [#/Vol] 9.1 10*3/uL [facility] WBC (Bld) [#/Vol] NOT REPORTED [facility] D-Dimer, Quantitativeon 02-0 D-Dimer, Quant 2.63 mg/L FEU [facility] th Comment on above: When combined with a low clinical probability, a D dimer value of <0.50 mg/L FEU is considered negative for DVT and PE (negative predictive value of 98%, sensitivity of 97%). If this test is not being used to help rule out DVT and PE, then the following reference range should be utilized: 0.00 - 1.02 mg/L FEU. The [employer] D-Dimer assay is intended for use as [...] more prevalent in patients with distal DVT. [facility] Immature Platelet Fractionon 12-13-2021 Interpretation and review of laboratory results Abnormal [facility] Platelet, Fluorescence [address] [facility] Platelet, Immature Fraction 3.4 % 1.1 - 10.3 % [facility] Magnesiumon 12-13-2021 Magnesium [Mass/Vol] 1.9 mg/dL 1.6 - 2 .6 mg/dL [facility] No Panel Informationon 12-13 Left wrist: No fracture. Left ankle: No fracture. Moderate soft tissue swelling at the site of insertion of Achillis tendon to calcaneus. [facility] EXAMINATION: XRAY VIEWS OF THE LEFT [...] of insertion of Achillis tendon to calcaneus. [facility] Akanksha Santoro MD - 12/13/2021 EXAMINATION: XRAY VIEWS OF [...] of insertion of Achillis tendon to calcaneus. [facility] Work Phone: Radiology Study observation (narrative) [employer] Work Phone: No Panel InformationOrdered By: Akanksha Santoro on 12-13-2021 [facility] Work Phone: PROF CHEM 8 (BAS METB)on Anion gap [Moles/Vol] 9.4 mmol/L Normal [facility] Comment on above: Performed By: #### B MP #### [facility] [address] [place] [address] Dr. Amanda Cottrell Calcium [Mass/Vol] 7.4 mg/dL Critically low 8.4-10.2 [facility] Comment on above: Performed By: #### B MP #### [facility] [address] [place] [address] Dr. Amanda Cottrell Chloride [Moles/Vol] 102 mmol/L Normal 98-107 [facility] Comment on above: Performed By: #### B MP #### [facility] [address] [address] [address] Amanda Cottrell CO2 [Moles/Vol] 24.8 mmol/L Normal 22.0-30.0 [facility] Comment on above: Performed By: #### B MP #### [facility] [address] [place] [address] Dr. Amanda Cottrell Creatinine [Mass/Vol] 0.65 mg/dL Critically low 0.66-1.25 [facility] Comment on above: Performed By: #### B MP #### [facility] [address] [address] [address] Amanda Cottrell EGFR-AF BRAZILIAN >60 Normal >=60 [facility] Comment on above: Performed By: #### B MP #### [facility] [address] [address] [address] Amanda Cottrell EGFR-NON AF BRAZILIAN >60 Normal >=60 [facility] Comment on above: Performed By: #### B MP #### [facility] [address] [address] [address] Amanda Cottrell Glucose [Mass/Vol] 115 mg/dL Critically high 74-106 T [facility] Comment on above: Performed By: #### B MP #### [facility] [address] [address] [address] Amanda Cottrell Potassium [Moles/Vol] 3.2 mmol/L Critically low 3.4-5.0 [facility] Comment on above: Performed By: #### B MP #### [facility] [address] [address] [address] Amanda Cottrell Sodium [Moles/Vol] 133 mmol/L Critically low 137-145 [facility] Comment on above: Performed By: #### B MP #### [facility] [address] [address] [address] Amanda Cottrell Urea nitrogen [Mass/Vol] 9.0 mg/dL Normal 9.0-20.0 [facility] Comment on above: Performed By: #### B MP #### [facility] [address] [address] [address] Amanda Cottrell Urea nitrogen/Creatinine [Mass ratio] 13.8 mg/mg Normal [facility] Comment on above: Performed By: #### B MP #### [facility] [address] [address] [address] Amanda Cottrell SPECIMEN REJECTIONon 022 - NOT REPORTED [facility] Ordered Test [facility] Reason for Rejection Unable to perform testing: Specimen clotted. [facility] Specimen source Nom (Unsp spec) .BLOOD [facility] Troponinon 12-13-2021 Troponin Interp NOT REPORTED [facility]alt Troponin T NOT REPORTED <0.03 ng/mL [facility] Troponin, High Sensitivity <6 0 - 22 ng/L [facility] Comment on above: High Sensitivity Troponin values cannot be compared with other Troponin methodologies. Patients with high levels of Biotin oral intake (i.e >5mg/day) may have falsely decreased Troponin levels. Samples collected within 8 hours of biotin intake may require additional information for diagnosis. [facility] VANCOMYCIN TROUGHon 12-13-19 VANCOMYCIN TROUGH 9.8 ug/ml Normal 5.0-20.0 [facility] Comment on above: Performed By: #### V ANCT #### [facility] [address] [place] [address] Dr. Amanda Cottrell CBC W MANUAL DIFFon 12-12-19 ANISOCYTOSIS 1+ Normal [facility] Comment on above: Performed By: #### C BCMAN #### [facility] [address] [place] [address] Dr. Amanda Cottrell ATYPICAL LYMPH # Normal [facility] Comment on above: Performed By: #### C BCMAN #### [facility] [address] [address] [address] Amanda Cottrell ATYPICAL LYMPH % Normal [facility] Comment on above: Performed By: #### C BCMAN #### [facility] [address] [place] [address] Dr. Amanda Cottrell BAND # 0.7 103/ul Critically high 0.0-0.3 [facility] Comment on above: Performed By: #### C BCMAN #### [facility] [address] [address] [address] Amanda Cottrell BAND % 8 % Critically high 0-5 [facility] Comment on above: Performed By: #### C BCMAN #### [facility] [address] [place] [address] Dr. Amanda Cottrell BASOM # 0.00 103/ul Normal 0.00-0.10 [facility] Comment on above: Performed By: #### C BCMAN #### [facility] [address] [address] [address] Amanda Cottrell BASOM % 0.0 % Critically low 0.2-2.0 [facility] Comment on above: Performed By: #### C BCMAN #### [facility] [address] [address] [address] Amanda Cottrell BLAST # Normal [facility] Comment on above: Performed By: #### C BCMAN #### [facility] [address] [address] [address] Amanda Cottrell BLAST % Normal [facility] Comment on above: Performed By: #### C BCMAN #### [facility] [address] [address] [address] Amanda Cottrell CORRECTED WBC Normal 4.0-11.0 [facility] Comment on above: Performed By: #### C BCMACY #### [facility] [address] [place] [address] Dr. Amanda Cottrell EOS # 0.00 103/ul Normal 0.00-0.70 [facility] Comment on above: Performed By: #### C BCMACY #### [facility] [address] [place] [address] Dr. Amanda Cottrell EOS% 0.0 % Critically low 0.9-7.0 [facility] Comment on above: Performed By: #### C BCMACY #### [facility] [address] [place] [address] Dr. Amanda Cottrell HCT 28.7 % Critically low 42.0-54.0 [facility] Comment on above: Performed By: #### C BCMAN #### [facility] [address] [place] [address] Dr. Amanda Cottrell HGB 9.5 g/dl Critically low 14.0-18.0 [facility] Comment on above: Performed By: #### C BCMAN #### [facility] [address] [place] [address] Dr. Amanda Cottrell LYMPHM # 0.49 103/ul Critically low 1.20-3.80 [facility] Comment on above: Performed By: #### C MELCHOR #### [facility] [address] [address] [address] Amanda Cottrell LYMPHM% 6.0 % Critically low 20.5-60.0 [facility] Comment on above: Performed By: #### C MELCHOR #### [facility] [address] [place] [address] Dr. Amanad Cottrell MCH 27.4 pg Normal 25.9-34.0 [facility] Comment on above: Performed By: #### C MELCHOR #### [facility] [address] [address] [address] Amanda Cottrell MCHC 33.1 g/dl Normal 29.9-35.2 [facility] Comment on above: Performed By: #### C MELCHOR #### [facility] [address] [place] [address] Dr. Amanda Cottrell MCV 82.7 fL Normal 80.0-94.0 [facility] Comment on above: Performed By: #### C MELCHOR #### [facility] [address] [place] [address] Dr. Amanda Cottrell METAMYELOCYTE # Normal [facility] Comment on above: Performed By: #### C MELCHOR #### [facility] [address] [place] [address] Dr. Amanda Cottrell METAMYELOCYTE % Normal [facility] Comment on above: Performed By: #### C MELCHOR #### [facility] [address] [place] [address] Dr. Amanda Cottrell MONOM# 0.74 103/ul Normal 0.30-0.80 [facility] Comment on above: Performed By: #### C MELCHOR #### [facility] [address] [place] [address] Dr. Amanda Cottrell MONOM% 9.0 % Normal 1.7-12.0 [facility] Comment on above: Performed By: #### C MELCHOR #### [facility] [address] [place] [address] Dr. Amanda Cottrell MPV 10.5 fL Normal 9.5-13.5 [facility] Comment on above: Performed By: #### C BCMACY #### [facility] [address] [address] [address] Amanda Cottrell MYELOCYTE # Normal [facility] Comment on above: Performed By: #### C MELCHOR #### [facility] [address] [address] [address] Amanda Cottrell MYELOCYTE % Normal [facility] Comment on above: Performed By: #### C MELCHOR #### [facility] [address] [place] [address] Dr. Amanda Cottrell NRBC Normal [facility] Comment on above: Performed By: #### C MELCHOR #### [facility] [address] [place] [address] Dr. Amanda Cottrell PLT 95 103/ul Critically low 150-450 [facility] Comment on above: Performed By: #### C MELCHOR #### [facility] [address] [place] [address] Dr. Amanda Cottrell RBC 3.47 106/ul Critically low 4.70-6.10 [facility] Comment on above: Performed By: #### C MELCHOR #### [facility] [address] [place] [address] Dr. Amanda Cottrell RDW 14.3 % Normal 11.0-15.0 [facility] Comment on above: Performed By: #### C MELCHOR #### [facility] [address] [place] [address] Dr. Amanda Cottrell SEG # 6.31 103/ul Normal 1.40-6.50 [facility] Comment on above: Performed By: #### C MELCHOR #### [facility] [address] [place] [address] Dr. Amanda Cottrell SEG % 77.0 % Critically high 43.0-75.0 [facility] Comment on above: Performed By: #### C MELCHOR #### [facility] [address] [address] [address] Amanda Cottrell WBC 8.2 103/ul Normal 4.0-11.0 [facility] Comment on above: Performed By: #### C BCMAN #### [facility] [address] [address] [address] Amanda Cottrell ECHO LIMITED STUDYon 022 ECHO LIMITED STUDY Patient: TIP ANSARI Exam Date: 12/12/2021 : 1980 Gender:M Ordering : DR EMY REBOLLEDO . Admission #: [id number] Family : Order #: [id number] CLICK HERE TO VIEW EXAM ECHOCARDIOGRAM REPORT [...] Moyer M.D. on 12/12/2021 at 16:15 Normal [facility] PROF 14(COMP METB)on Albumin [Mass/Vol] 1.6 g/dL Critically low 3.5-5.0 [facility] Comment on above: Performed By: #### V ANCT #### [facility] [address] [address] [address] Amanda Cottrell Albumin/Globulin [Mass ratio] 0.4 {ratio} Normal [facility] Comment on above: Performed By: #### V ANCT #### [facility] [address] [address] [address] Amanda Cottrell ALP [Catalytic activity/Vol] 71 U/L Normal 38-126 [facility] Comment on above: Performed By: #### V ANCT #### [facility] [address] [address] [address] Amanda Cottrell ALT [Catalytic activity/Vol] 30 U/L Normal 21-72 [facility] Comment on above: Performed By: #### V ANCT #### [facility] [address] [address] [address] Amanda Cottrell Anion gap [Moles/Vol] 10.0 mmol/L Normal [facility] Comment on above: Performed By: #### V ANCT #### [facility] [address] [address] [address] Amanda Cottrell AST [Catalytic activity/Vol] 21 U/L Normal 17-59 [facility] Comment on above: Performed By: #### V ANCT #### [facility] [address] [address] [address] Amanda Cottrell Bilirubin [Mass/Vol] 0.7 mg/dL Normal 0.2-1.3 [facility] Comment on above: Performed By: #### V ANCT #### [facility] [address] [address] [address] Amanda Cottrell Calcium [Mass/Vol] 7.8 mg/dL Critically low 8.4-10.2 [facility] Comment on above: Performed By: #### V ANCT #### [facility] [address] [address] [address] Amanda Cottrell Chloride [Moles/Vol] 100 mmol/L Normal 98-107 [facility] Comment on above: Performed By: #### V ANCT #### [facility] [address] [address] [address] Amanda Cottrell CO2 [Moles/Vol] 23.1 mmol/L Normal 22.0-30.0 [facility] Comment on above: Performed By: #### V ANCT #### [facility] [address] [place] [address] Dr. Amanda Cottrell Creatinine [Mass/Vol] 0.67 mg/dL Normal 0.66-1.25 [facility] Comment on above: Performed By: #### V ANCT #### [facility] [address] [place] [address] Dr. Amanda Cottrell EGFR-AF BRAZILIAN >60 Normal >=60 [facility] Comment on above: Performed By: #### V ANCT #### [facility] [address] [address] [address] Amanda Cottrell EGFR-NON AF BRAZILIAN >60 Normal >=60 [facility] Comment on above: Performed By: #### V ANCT #### [facility] [address] [place] [address] Dr. Amanda Cottrell Globulin (S) [Mass/Vol] 3.8 g/dL Normal [facility] Comment on above: Performed By: #### V ANCT #### [facility] [address] [place] [address] Dr. Amanda Cottrell Glucose [Mass/Vol] 113 mg/dL Critically high 74-106 [facility] Comment on above: Performed By: #### V ANCT #### [facility] [address] [place] [address] Dr. Amanda Cottrell Potassium [Moles/Vol] 3.1 mmol/L Critically low 3.4-5.0 [facility] Comment on above: Performed By: #### V ANCT #### [facility] [address] [place] [address] Dr. Amanda Cottrell Protein [Mass/Vol] 5.4 g/dL Critically low 6.1-8.2 [facility] Comment on above: Performed By: #### V ANCT #### [facility] [address] [place] [address] Dr. Amanda Cottrell Sodium [Moles/Vol] 130 mmol/L Critically low 137-145 [facility] Comment on above: Performed By: #### V ANCT #### [facility] [address] [place] [address] Dr. Amanda Cottrell Urea nitrogen [Mass/Vol] 12.0 mg/dL Normal 9.0-20.0 [facility] Comment on above: Performed By: #### V ANCT #### [facility] [address] [place] [address] Dr. Amanda Cottrell Urea nitrogen/Creatinine [Mass ratio] 17.9 mg/mg Normal [facility] Comment on above: Performed By: #### V ANCT #### [facility] [address] [place] [address] Dr. Amanda Cottrell XR CHEST 1 Von [...] by: JOELLE MEDEIROS Date: 2021-12-12 12:09 Normal [facility] BLOOD CULTURE ID PANELon Bottle Set: Set 1 Normal [facility] Comment on above: Performed By: #### V ANCT #### [facility] [address] [place] [address] Dr. Amanda Cottrell BLOOD CULTURE ID PANEL SUBSE Kory 12-11-2021 A. baumannii Not detected Normal [facility] Comment on above: Performed By: #### B CIDSUB #### [facility] [address] [place] [address] Dr. Amanda Cottrell Performed By: #### V ANCT #### [facility] [address] [place] [address] Dr. Amanda Cottrell BCID CONTROLS PASSED Normal [facility] Comment on above: Performed By: #### B CIDSUB #### [facility] [address] [place] [address] Dr. Amanda Cottrell Performed By: #### V ANCT #### [facility] [address] [place] [address] Dr. Amanda Cottrell BCIDBTHD BLOOD CULTURE BOTTLE INFORMATION [facility] Comment on above: Performed By: #### B CIDSUB #### [facility] [address] [place] [address] Dr. Amanda Cottrell Performed By: #### V ANCT #### [facility] [address] [place] [address] Dr. Amanda Cottrell BCIDHD1 ANTIMICROBIAL RESISTANCE GENES [facility] Comment on above: Performed By: #### B CIDSUB #### [facility] [address] [place] [address] Dr. Amanda Cottrell Performed By: #### V ANCT #### [facility] [address] [place] [address] Dr. Amanda Cottrell BCIDHD2 SEE BELOW [facility] Comment on above: Result Comment: KPC- carbapenem resistance gene, mecA- methecillin resistance gene, van A/B- vancomycin resistance gene Note: Antimicrobial resitance can occur via multiple mechanisms. A Not Detected result for the [employer] antomicrobial resistance gene assays does not indicate antimicrobial susceptibility. Subculturing is required for specis identificationand susceptibility testing of isolates. Performed By: #### B CIDSUB #### [facility] [address] [place] [address] Dr. Amanda Cottrell Performed By: #### V ANCT #### [facility] [address] [place] [address] Dr. Amanda Cottrell BCIDHD3 Positive [facility] Comment on above: Performed By: #### B CIDSUB #### [facility] [address] [place] [address] Dr. Amanda Cottrell Performed By: #### V ANCT #### [facility] [address] [place] [address] Dr. Amanda Cottrell BCIDHD4 Negative [facility] Comment on above: Performed By: #### B CIDSUB #### [facility] [address] [place] [address] Dr. Amanda Cottrell Performed By: #### V ANCT #### [facility] [address] [place] [address] Dr. Amanda Cottrell BCIDHD5 YEAST Normal [facility] Comment on above: Performed By: #### B CIDSUB #### [facility] [address] [place] [address] Dr. Amanda Cottrell Performed By: #### V ANCT #### [facility] [address] [place] [address] Dr. Amanda Cottrell BCIDHD6 SEE BELOW [facility] Comment on above: Result Comment: Note : All genus and species BCID FilmArray results will be verified post subculturing via Maldi-Tof MS testing methodology. Performed By: #### B CIDSUB #### [facility] [address] [place] [address] Dr. Amanda Cottrell Performed By: #### V ANCT #### [facility] [address] [place] [address] Dr. Amanda Cottrell Bottle Set: Set 2 [facility] Comment on above: Performed By: #### B CIDSUB #### [facility] [address] [place] [address] Dr. Amanda Cottrell Bottle: Aerobic [facility] Comment on above: Performed By: #### B CIDSUB #### [facility] [address] [place] [address] Dr. Amanda Cottrell Performed By: #### V ANCT #### [facility] [address] [place] [address] Dr. Amanda Cottrell Bottle: Anaerobic [facility] Comment on above: Performed By: #### B CIDSUB #### [facility] [address] [place] [address] Dr. Amanda Cottrell Nathaniel albicans Not detected [facility] Comment on above: Performed By: #### B CIDSUB #### [facility] [address] [place] [address] Dr. Amanda Cottrell Performed By: #### V ANCT #### [facility] [address] [place] [address] Dr. Amanda Cottrell Nathaniel glabrata Not detected Normal [facility] Comment on above: Performed By: #### B CIDSUB #### [facility] [address] [place] [address] Dr. Amanda Cottrell Performed By: #### V ANCT #### [facility] [address] [place] [address] Dr. Amanda Cottrell Nathaniel Krusei Not detected Normal [facility] Comment on above: Performed By: #### B CIDSUB #### [facility] [address] [place] [address] Dr. Amanda Cottrell Performed By: #### V ANCT #### [facility] [address] [place] [address] Dr. Amanda Cottrell Nathaniel Parapsilosis Not detected Normal [facility] Comment on above: Performed By: #### B CIDSUB #### [facility] [address] [place] [address] Dr. Amanda Cottrell Performed By: #### V ANCT #### [facility] [address] [place] [address] Dr. Amanda Cottrell Nathaniel Tropicalis Not detected Normal [facility] Comment on above: Performed By: #### B CIDSUB #### [facility] [address] [place] [address] Dr. Amanda Cottrell Performed By: #### V ANCT #### [facility] [address] [place] [address] Dr. Amanda Cottrell E. Cloacae complex Not detected Normal [facility] Comment on above: Performed By: #### B CIDSUB #### [facility] [address] [place] [address] Dr. Amanda Cottrell Performed By: #### V ANCT #### [facility] [address] [place] [address] Dr. Amanda Cottrell Enterobacteriaceae Not detected Normal [facility] Comment on above: Performed By: #### B CIDSUB #### [facility] [address] [place] [address] Dr. Amanda Cottrell Performed By: #### V ANCT #### [facility] [address] [address] [address] Amanda Cottrell Enterococcus Not detected Normal [facility] Comment on above: Performed By: #### B CIDSUB #### [facility] [address] [address] [address] Amanda Cottrell Performed By: #### V ANCT #### [facility] [address] [place] [address] Dr. Amanda Cottrell Escheria coli Not detected Normal [facility] Comment on above: Performed By: #### B CIDSUB #### [facility] [address] [address] [address] Amanda Cottrell Performed By: #### V ANCT #### [facility] [address] [place] [address] Dr. Amanda Cottrell K. oxytoca Not detected Normal [facility] Comment on above: Performed By: #### B CIDSUB #### [facility] [address] [place] [address] Dr. Amanda Cottrell Performed By: #### V ANCT #### [facility] [address] [address] [address] Amanda Cottrell K. pneumoniae Not detected Normal [facility] Comment on above: Performed By: #### B CIDSUB #### [facility] [address] [place] [address] Dr. Amanda Cottrell Performed By: #### V ANCT #### [facility] [address] [place] [address] Dr. Amanda Cottrell KPC Resistant Gene Not Applicable Normal [facility] Comment on above: Performed By: #### B CIDSUB #### [facility] [address] [place] [address] Dr. Amanda Cottrell Performed By: #### V ANCT #### [facility] [address] [place] [address] Dr. Amanda Cottrell List. monocytogenes Not detected Normal [facility] Comment on above: Performed By: #### B CIDSUB #### [facility] [address] [place] [address] Dr. Amanda Cottrell Performed By: #### V ANCT #### [facility] [address] [place] [address] Dr. Amanda Cottrell mecA Resistant Gene Detected Critically abnormal [facility] Comment on above: Performed By: #### B CIDSUB #### [facility] [address] [place] [address] Dr. Amanda Cottrell Performed By: #### V ANCT #### [facility] [address] [place] [address] Dr. Amanda Cottrell Proteus Not detected Normal [facility] Comment on above: Performed By: #### B CIDSUB #### [facility] [address] [place] [address] Dr. Amanda Cottrell Performed By: #### V ANCT #### [facility] [address] [place] [address] Dr. Amanda Cottrell Pseud. aeruginosa Not detected Normal [facility] Comment on above: Performed By: #### B CIDSUB #### [facility] [address] [place] [address] Dr. Amanda Cottrell Performed By: #### V ANCT #### [facility] [address] [place] [address] Dr. Amanda Cottrell Seratia marcescens Not detected Normal [facility] Comment on above: Performed By: #### B CIDSUB #### [facility] [address] [place] [address] Dr. Amanda Cottrell Performed By: #### V ANCT #### [facility] [address] [place] [address] Dr. Amanda Cottrell Site: LEFT HAND Normal [facility] Comment on above: Performed By: #### B CIDSUB #### [facility] [address] [place] [address] Dr. Amanda Cottrell Site: L WRIST Normal [facility] Comment on above: Performed By: #### B CIDSUB #### [facility] [address] [place] [address] Dr. Amanda Cottrell Performed By: #### V ANCT #### [facility] [address] [address] [address] Amanda Cottrell Site: L HAND Normal [facility] Comment on above: Performed By: #### B CIDSUB #### [facility] [address] [address] [address] Amanda Cottrell Staph. aureus Detected Critically abnormal [facility] Comment on above: Performed By: #### B CIDSUB #### [facility] [address] [address] [address] Amanda Cottrell Performed By: #### V ANCT #### [facility] [address] [address] [address] Amanda Cottrell Staphylococcus Detected Critically abnormal [facility] Comment on above: Performed By: #### B CIDSUB #### [facility] [address] [place] [address] Dr. Amanda Cottrell Performed By: #### V ANCT #### [facility] [address] [address] [address] Amanda Cottrell Strep. agalactiae Not detected Normal [facility] Comment on above: Performed By: #### B CIDSUB #### [facility] [address] [address] [address] Amanda Cottrell Performed By: #### V ANCT #### [facility] [address] [place] [address] Dr. Amanda Cottrell Strep. pneumoniae Not detected Normal [facility] Comment on above: Performed By: #### B CIDSUB #### [facility] [address] [address] [address] Amanda Cottrell Performed By: #### V ANCT #### [facility] [address] [place] [address] Dr. Amanda Cottrell Strep. pyogenes Not detected Normal [facility] Comment on above: Performed By: #### B CIDSUB #### [facility] [address] [place] [address] Dr. Amanda Cottrell Performed By: #### V ANCT #### [facility] [address] [place] [address] Dr. Amanda Cottrell Streptococcus Not detected Normal [facility] Comment on above: Performed By: #### B CIDSUB #### [facility] [address] [place] [address] Dr. Amanda Cottrell Performed By: #### V ANCT #### [facility] [address] [place] [address] Dr. Amanda Cottrell Maci/B Resist. Gene Not Applicable Normal [facility] Comment on above: Performed By: #### B CIDSUB #### [facility] [address] [place] [address] Dr. Amanda Cottrell Performed By: #### V ANCT #### [facility] [address] [place] [address] Dr. Amanda Cottrell CBC AUTO DIFFon 12-11-2021 BASO # 0.0 103/ul Normal 0.0-0.1 [facility] Comment on above: Performed By: #### C BC #### [facility] [address] [place] [address] Dr. Amanda Cottrell Basophils/100 WBC (Bld) 0.2 % Normal 0.2-2.0 [facility] Comment on above: Performed By: #### C BC #### [facility] [address] [place] [address] Dr. Amanda Cottrell EO # 0.0 103/ul Normal 0.0-0.7 [facility] Comment on above: Performed By: #### C BC #### [facility] [address] [place] [address] Dr. Amanda Cottrell Eosinophils/100 WBC (Bld) 0.1 % Critically low 0.9-7.0 [facility] Comment on above: Performed By: #### C BC #### [facility] [address] [place] [address] Dr. Amanda Cottrell Erythrocyte distribution width (RBC) [Ratio] 14.2 % Normal 11.0-15.0 [facility] Comment on above: Performed By: #### C BC #### [facility] [address] [address] [address] Amanda Cottrell Hematocrit (Bld) [Volume fraction] 34.2 % Critically low 42.0-54.0 [facility] Comment on above: Performed By: #### C BC #### [facility] [address] [place] [address] Dr. Amanda Cottrell Hemoglobin (Bld) [Mass/Vol] 11.9 g/dL Critically low 14.0-18.0 [facility] Comment on above: Performed By: #### C BC #### [facility] [address] [place] [address] Dr. Amanda Cottrell IG # 0.15 10e3/ul Critically high 0.00-0.03 [facility] Comment on above: Performed By: #### C BC #### [facility] [address] [place] [address] Dr. Amanda Cottrell IG % 1.2 % Critically high 0.0-0.5 [facility] Comment on above: Performed By: #### C BC #### [facility] [address] [place] [address] Dr. Amanda Cottrell LYMPH # 0.6 103/ul Critically low 1.2-3.8 [facility] Comment on above: Performed By: #### C BC #### [facility] [address] [place] [address] Dr. Amanda Cottrell Lymphocytes/100 WBC (Bld) 4.5 % Critically low 20.5-60.0 [facility] Comment on above: Performed By: #### C BC #### [facility] [address] [place] [address] Dr. Amanda Cottrell MANUAL DIFF REQ NO Normal [facility] Comment on above: Performed By: #### C BC #### [facility] [address] [place] [address] Dr. Amanda Cottrell MCH (RBC) [Entitic mass] 28.1 pg Normal 25.9-34.0 [facility] Comment on above: Performed By: #### C BC #### [facility] [address] [place] [address] Dr. Amanda Cottrell MCHC (RBC) [Mass/Vol] 34.8 g/dL Normal 29.9-35.2 [facility] Comment on above: Performed By: #### C BC #### [facility] [address] [address] [address] Amanda Cottrell MCV (RBC) [Entitic vol] 80.9 fL Normal 80.0-94.0 [facility] Comment on above: Performed By: #### C BC #### [facility] [address] [place] [address] Dr. Amanda Cottrell MONO # 0.9 103/ul Critically high 0.3-0.8 [facility] Comment on above: Performed By: #### C BC #### [facility] [address] [place] [address] Dr. Amanda Cottrell Monocytes/100 WBC (Bld) 6.8 % Normal 1.7-12.0 [facility] Comment on above: Performed By: #### C BC #### [facility] [address] [place] [address] Dr. Amanda Cottrell NEUT # 11.0 103/ul Critically high 1.4-6.5 [facility] Comment on above: Performed By: #### C BC #### [facility] [address] [place] [address] Dr. Amanda Cottrell Neutrophils/100 WBC (Bld) 87.2 % Critically high 43.0-75.0 [facility] Comment on above: Performed By: #### C BC #### [facility] [address] [place] [address] Dr. Amanda Cottrell Platelet mean volume (Bld) [Entitic vol] 10.6 fL Normal 9.5-13.5 [facility] Comment on above: Performed By: #### C BC #### [facility] [address] [place] [address] Dr. Amanda Cottrell PLT 144 103/ul Critically low 150-450 [facility] Comment on above: Performed By: #### C BC #### [facility] [address] [place] [address] Dr. Amanda Cottrell RBC 4.23 106/ul Critically low 4.70-6.10 [facility] Comment on above: Performed By: #### C BC #### [facility] [address] [address] [address] Amanda Cottrell WBC 12.6 103/ul Critically high 4.0-11.0 [facility] Comment on above: Performed By: #### C BC #### [facility] [address] [address] [address] CHEST WO CONon [...] RAFAEL ALONSO Date: 2021-12-11 18:07 Normal [facility] CULTURE BLOODon 12-11-2021 Microscopic examination of blood, culture Specimen Comments: LEFT HAND Culture Observations: S.aureus in aerobic and anaerobic bottles.See#[id number] for ASTs. Isolate 1 Staphylococcus aureus Growth of Normal [facility] Comment on above: Performed By: #### C BCMAN #### [facility] [address] [address] [address] Amanda Cottrell CULTURE STOOLon 12-11-2021 CULTURE STOOL Culture Observations : NO GROWTH SALMONELLA, SHIGELLA, YERSINIA, CAMPY, E.COLI 0157, OR STAPH AT 72 HRS Normal [facility] Comment on above: Performed By: #### Junior ROCHE #### [facility] [address] [address] [address] Amanda Cottrell Covid-19 PCR ([facility])on 11-13 SARS-CoV-2 (COVID-19) RNA CHARO+probe Ql (Unsp spec) Not detected Normal NOT DETECTED [facility] Comment on above: Result Comment: This test is not yet approved or cleared by the [place] FDA. When there are no FDA-approved or cleared tests available, and other criteria are met, FDA can make tests available under an emergency access mechanism called an Emergency Use Authorization (EUA). The EUA for this test is supported by the [place] of Health and Human Service's (HHS's) declaration [...] symptoms consistent with SARS-CoV-2. Performed By: #### Junior ROCHE #### [facility] [address] [place] [address] Dr. Amanda Cottrell DRUG SCREEN RAPID (URINE)on 12-11-2021 AMP Positive Abnormal NEGATIVE [facility] Comment on above: Performed By: #### D LARARPMichela #### [facility] [address] [place] [address] Dr. Amanda Cottrell BAR Negative Normal NEGATIVE [facility] Comment on above: Performed By: #### D RUGRPD #### [facility] [address] [place] [address] Dr. Amanda Cottrell BUP Negative Normal NEGATIVE [facility] Comment on above: Performed By: #### D RUGRPD #### [facility] [address] [place] [address] Dr. Amanda Cottrell BZO Negative Normal NEGATIVE [facility] Comment on above: Performed By: #### D RUGRPD #### [facility] [address] [place] [address] Dr. Amanda Cottrell CARLINE Negative Normal NEGATIVE [facility] Comment on above: Performed By: #### D RUGRPD #### [facility] [address] [place] [address] Dr. Amanda Cottrell CUT-OFFS SEE BELOW Normal [facility] Comment on above: Result Comment: [...] ng/mL Performed By: #### D RUGRPD #### [facility] [address] [place] [address] Dr. Amanda Cottrell DRUG CUT HEADER DRUG CLASS TEST SYSTEM CUT-OFF CONCENTRATIONS ARE FOLLOWS: Normal [facility] Comment on above: Performed By: #### D RUGRPD #### [facility] [address] [place] [address] Dr. Amanda Cottrell mAMP Positive Abnormal NEGATIVE [facility] Comment on above: Performed By: #### D RUGRPD #### [facility] [address] [place] [address] Dr. Amanda Cottrell MTD Negative Normal NEGATIVE [facility] Comment on above: Performed By: #### D RUGRPD #### [facility] [address] [place] [address] Dr. Amanda Cottrell OPI Negative Normal NEGATIVE [facility] Comment on above: Performed By: #### D RUGRPD #### [facility] [address] [place] [address] Dr. Amanda Cottrell OXY Negative Normal NEGATIVE [facility] Comment on above: Performed By: #### D RUGRPD #### [facility] [address] [place] [address] Dr. Amanda Cottrell PCP Negative Normal NEGATIVE [facility] Comment on above: Performed By: #### D RUGRPD #### [facility] [address] [place] [address] Dr. Amanda Cottrell PPX Negative Normal NEGATIVE [facility] Comment on above: Performed By: #### D RUGRPD #### [facility] [address] [place] [address] Dr. Amanda Cottrell TCA Negative Normal NEGATIVE [facility] Comment on above: Performed By: #### D RUGRPD #### [facility] [address] [place] [address] Dr. Amanda Cottrell THC Positive Abnormal NEGATIVE [facility] Comment on above: Performed By: #### D RUGRPD #### [facility] [address] [place] [address] Dr. Amanda Cottrell GI PANEL (PCR)on 12-11-2021 Adenovirus F 40/41 Not detected Normal NOT DETECTED [facility] Comment on above: Performed By: #### V ANCT #### [facility] [address] [place] [address] Dr. Amanda Cottrell Astrovirus Not detected Normal NOT DETECTED [facility] Comment on above: Performed By: #### V ANCT #### [facility] [address] [place] [address] Dr. Amanda Cottrell C. Diff toxin A/B Not detected Normal NOT DETECTED [facility] Comment on above: Performed By: #### V ANCT #### [facility] [address] [place] [address] Dr. Amanda Cottrell Campylobacter Not detected Normal NOT DETECTED [facility] Comment on above: Performed By: #### V ANCT #### [facility] [address] [place] [address] Dr. Amanda Cottrell Cryptosporidium Not detected Normal NOT DETECTED [facility] Comment on above: Performed By: #### V ANCT #### [facility] [address] [place] [address] Dr. Amanda Cottrell Cyclos. Cayetanensis Not detected Normal NOT DETECTED [facility] Comment on above: Performed By: #### V ANCT #### [facility] [address] [place] [address] Dr. Amanda Cottrell E. Coli O157 Not Applicable Normal Not Applicable [facility] Comment on above: Performed By: #### V ANCT #### [facility] [address] [place] [address] Dr. Amanda Cottrell E. histolytica Not detected Normal NOT DETECTED [facility] Comment on above: Performed By: #### V ANCT #### [facility] [address] [place] [address] Dr. Amanda Cottrell EAEC Not detected Normal NOT DETECTED [facility] Comment on above: Performed By: #### V ANCT #### [facility] [address] [place] [address] Dr. Amanda Cottrell EIEC Not detected Normal NOT DETECTED [facility] Comment on above: Performed By: #### V ANCT #### [facility] [address] [place] [address] Dr. Amanda Cottrell EPEC Not detected Normal NOT DETECTED [facility] Comment on above: Performed By: #### V ANCT #### [facility] [address] [place] [address] Dr. Amanda Cottrell ETEC Not detected Normal NOT DETECTED [facility] Comment on above: Performed By: #### V ANCT #### [facility] [address] [place] [address] Dr. Amanda Cottrell G. Lamblia Not detected Normal NOT DETECTED [facility] Comment on above: Performed By: #### V ANCT #### [facility] [address] [place] [address] Dr. Yilan Cottrell GIPANEL CONTROLS PASSED Normal [facility] Comment on above: Performed By: #### V ANCT #### [facility] [address] [address] [address] Amanda ANDREW HEADER GI PANEL BACTERIA Normal [facility] Comment on above: Performed By: #### V ANCT #### [facility] [address] [address] [address] Amanda RUIZ ECOLI GI PANEL DIARRHEAGENIC E.COLI / SHIGELLA Normal [facility] Comment on above: Performed By: #### V ANCT #### [facility] [address] [address] [address] Amanda RUIZ INFO SEE BELOW Normal [facility] Comment on above: Result Comment: EAEC - Enteroaggregative E. Coli EPEC- Enteropathogenic E. Coli ETEC- Enterotoxigenic E. Coli lt/st STEC- Shigella-like toxin-producing E. Coli stx1/stx2 EIEC- Shigella/Enteroinvasive E. Coli Performed By: #### V ANCT #### [facility] [address] [place] [address] Dr. Amanda RUIZ PARASITES GI PANEL PARASITES Normal [facility] Comment on above: Performed By: #### V ANCT #### [facility] [address] [address] [address] Amanda RUIZ VIRUS GI PANEL VIRUSES Normal [facility] Comment on above: Performed By: #### V ANCT #### [facility] [address] [address] [address] Amanda Cottrell Norovirus GI/GII Not detected Normal NOT DETECTED [facility] Comment on above: Performed By: #### V ANCT #### [facility] [address] [address] [address] Amanda Cottrell P. Shigelloides Not detected Normal NOT DETECTED [facility] Comment on above: Performed By: #### V ANCT #### [facility] [address] [address] [address] Amanda Cottrell Rotavirus A Not detected Normal NOT DETECTED [facility] Comment on above: Performed By: #### V ANCT #### [facility] [address] [place] [address] Dr. Amanda Cottrell Salmonella Not detected Normal NOT DETECTED [facility] Comment on above: Performed By: #### V ANCT #### [facility] [address] [place] [address] Dr. Amanda Cottrell Sapovirus Not detected Normal NOT DETECTED [facility] Comment on above: Performed By: #### V ANCT #### [facility] [address] [place] [address] Dr. Amanda Cottrell STEC Not detected Normal NOT DETECTED [facility] Comment on above: Performed By: #### V ANCT #### [facility] [address] [place] [address] Dr. Amanda Cottrell Vibrio Not detected Normal NOT DETECTED [facility] Comment on above: Performed By: #### V ANCT #### [facility] [address] [place] [address] Dr. Amanda Cottrell Vibrio Cholera Not detected Normal NOT DETECTED [facility] Comment on above: Performed By: #### V ANCT #### [facility] [address] [place] [address] Dr. Amanda Cottrell Y. Enterocolitica Not detected Normal NOT DETECTED [facility] Comment on above: Performed By: #### V ANCT #### [facility] [address] [place] [address] Dr. Amanda Cottrell LACTATE/LACTIC ACIDon 2021 Lactate [Moles/Vol] 1.0 mmol/L Normal 0.7-2.0 [facility] Comment on above: Performed By: #### C BCMAN #### [facility] [address] [place] [address] Dr. Amanda Cottrell LIPASEon 12-11-2021 Lipase [Catalytic activity/Vol] 97.0 U/L Normal 23.0-300.0 [facility] Comment on above: Performed By: #### C MP, LIPA #### [facility] [address] [place] [address] Dr. Amanda Cottrell OCC BLD IMMUNO SCREENon 11-13 OCCULT BLOOD Positive Abnormal NEGATIVE [facility] Comment on above: Performed By: #### C BCMAN #### [facility] [address] [place] [address] Dr. Amanda Cottrell PROF 14(COMP METB)on 022 Albumin [Mass/Vol] 2.0 g/dL Critically low 3.5-5.0 [facility] Comment on above: Performed By: #### C MP, LIPA #### [facility] [address] [place] [address] Dr. Amanda Cottrell Albumin/Globulin [Mass ratio] 0.5 {ratio} Normal [facility] Comment on above: Performed By: #### C MP, LIPA #### [facility] [address] [place] [address] Dr. Amanda Cottrell ALP [Catalytic activity/Vol] 91 U/L Normal 38-126 [facility] Comment on above: Performed By: #### C MP, LIPA #### [facility] [address] [place] [address] Dr. Amanda Cottrell ALT [Catalytic activity/Vol] 36 U/L Normal 21-72 [facility] Comment on above: Performed By: #### C MP, LIPA #### [facility] [address] [place] [address] Dr. Amanda Cottrell Anion gap [Moles/Vol] 9.6 mmol/L Normal [facility] Comment on above: Performed By: #### C MP, LIPA #### [facility] [address] [place] [address] Dr. Amanda Cottrell AST [Catalytic activity/Vol] 22 U/L Normal 17-59 [facility] Comment on above: Performed By: #### C MP, LIPA #### [facility] [address] [place] [address] Dr. Amanda Cottrell Bilirubin [Mass/Vol] 0.8 mg/dL Normal 0.2-1.3 [facility] Comment on above: Performed By: #### C MP, LIPA #### [facility] [address] [address] [address] Amanda Cottrell Calcium [Mass/Vol] 7.8 mg/dL Critically low 8.4-10.2 [facility] Comment on above: Performed By: #### C MP, LIPA #### [facility] [address] [address] [address] Amanda Cottrell Chloride [Moles/Vol] 93 mmol/L Critically low 98-107 [facility] Comment on above: Performed By: #### C MP, LIPA #### [facility] [address] [address] [address] Amanda Cottrell CO2 [Moles/Vol] 24.4 mmol/L Normal 22.0-30.0 [facility] Comment on above: Performed By: #### C MP, LIPA #### [facility] [address] [place] [address] Dr. Amanda Cottrell Creatinine [Mass/Vol] 0.71 mg/dL Normal 0.66-1.25 [facility] Comment on above: Performed By: #### C MP, LIPA #### [facility] [address] [address] [address] Amanda Cottrell EGFR-AF BRAZILIAN >60 Normal >=60 [facility] Comment on above: Performed By: #### C MP, LIPA #### [facility] [address] [place] [address] Dr. Amanda Cottrell EGFR-NON AF BRAZILIAN >60 Normal >=60 [facility] Comment on above: Performed By: #### C MP, LIPA #### [facility] [address] [address] [address] Amanda Cottrell Globulin (S) [Mass/Vol] 4.3 g/dL Normal [facility] Comment on above: Performed By: #### C MP, LIPA #### [facility] [address] [place] [address] Dr. Amanda Cottrell Glucose [Mass/Vol] 122 mg/dL Critically high 74-106 [facility] Comment on above: Performed By: #### C MP, LIPA #### [facility] [address] [address] [address] Amanda Cottrell Potassium [Moles/Vol] 2.9 mmol/L Critically low 3.4-5.0 [facility] Comment on above: Performed By: #### C MP, LIPA #### [facility] [address] [address] [address] Amanda Cottrell Protein [Mass/Vol] 6.3 g/dL Normal 6.1-8.2 [facility] Comment on above: Performed By: #### C MP, LIPA #### [facility] [address] [address] [address] Amanda Cottrell Sodium [Moles/Vol] 122 mmol/L Critically low 137-145 [facility] Comment on above: Performed By: #### C MP, LIPA #### [facility] [address] [place] [address] Dr. Amanda Cottrell Urea nitrogen [Mass/Vol] 11.0 mg/dL Normal 9.0-20.0 [facility] Comment on above: Performed By: #### C MP, LIPA #### [facility] [address] [address] [address] Amanda Cottrell Urea nitrogen/Creatinine [Mass ratio] 15.0 mg/mg Normal [facility] Comment on above: Performed By: #### C MP, LIPA #### [facility] [address] [place] [address] Dr. Amanda Cottrell XR ABD FLAT UP_PA [...] by: SAMUEL GREENE Date: 2021-12-11 17:09 Normal [facility] Basic Metab w/rfx MGon 10-23 (cont.) Normal [facility] Comment on above: Result Comment: Aver age GFR for 30-39 years old: 107 mL/min/1.73sq m Chronic Kidney Disease: <60 mL/min/1.73sq m Kidney failure: <15 mL/min/1.73sq m eGFR calculated using average adult body mass. Additional eGFR calculator available at: http://www.[employer]/multiple_crcl_2011.htm Performed By: #### C P, CDP #### [facility] [address] [place] [address] [place] [address] Forensic Specialist: Joelle Parker MD Anion gap [Moles/Vol] 11 mmol/L Normal 9-17 [facility] Comment on above: Performed By: #### C P, CDP #### [address] [place] [address] Forensic Specialist: Joelle Parker MD BUN/CRE Ratio 16 Normal 9-20 [facility] Comment on above: Performed By: #### C P, CDP #### [facility] [address] [place] [address] [place] [address] Forensic Specialist: Joelle Parker MD Calcium [Mass/Vol] 9.5 mg/dL Normal 8.6-10.4 [facility] Comment on above: Performed By: #### C P, CDP #### [address] [place] [address] Forensic Specialist: Joelle Parker MD Chloride [Moles/Vol] 100 mmol/L Normal 98-107 [facility] Comment on above: Performed By: #### C P, CDP #### [facility] [address] [place] [address] Dr. [place] [id number] Forensic Specialist: Joelle Parker MD CO2 [Moles/Vol] 26 mmol/L Normal 20-31 [facility] Comment on above: Performed By: #### C P, CDP #### [facility] [address] [place], [place] [id number] Forensic Specialist: Joelle Parker MD Creatinine [Mass/Vol] 0.95 mg/dL Normal 0.70-1.20 [facility] Comment on above: Performed By: #### C P, CDP #### [facility] [address] [place], [place] [id number] Forensic Specialist: Joelle Parker MD GFR, Amer >60 Normal >60 [facility] Comment on above: Performed By: #### C P, CDP #### [facility] [address] [place], [place] [id number] Forensic Specialist: Joelle Parker MD GFR,non Amer >60 Normal >60 [facility] Comment on above: Performed By: #### C P, CDP #### [facility] [address] [place], [place] [id number] Forensic Specialist: Joelle Parker MD Glucose [Mass/Vol] 92 mg/dL Normal 70-99 [facility] Comment on above: Performed By: #### C P, CDP #### [facility] [address] [place], [place] [id number] Forensic Specialist: Joelle Parker MD Potassium [Moles/Vol] 3.7 mmol/L Normal 3.7-5.3 [facility] Comment on above: Performed By: #### C P, CDP #### [facility] [address] [place] [address] Forensic Specialist: Joelle Parker MD Sodium [Moles/Vol] 137 mmol/L Normal 135-144 [facility] Comment on above: Performed By: #### C P, CDP #### [facility] [address] [place] [address] Dr. [place], [place] [id number] Forensic Specialist: Joelle Parker MD Staging: Normal [facility] Comment on above: Result Comment: Stag e 1: Some kidney damage normal GFR Stage 2: Mild kidney damage GFR 60-89 Stage 3: Moderate kidney damage GFR 30-59 Stage 4: Severe kidney damage GFR 15-29 Stage 5: Severe kidney damage GFR <15 ESRD - chronic treatment by dialysis or transplant Performed By: #### C P, CDP #### [facility] [address] [place] [address] Dr. [place], [place] [id number] Forensic Specialist: Joelle Parker MD Urea nitrogen [Mass/Vol] 15 mg/dL Normal 6-20 [facility] Comment on above: Performed By: #### C P, CDP #### [address] [place], [facility] Forensic Specialist: Joelle Parker MD CBC with Diffon 10-23-2021 Abs. Basophil 0.05 k/uL Normal 0.00-0.20 [facility] Comment on above: Performed By: #### C P, CDP #### [address] [place], [place] [id number] Forensic Specialist: Joelle Parker MD Abs.Imm.Granulocyte <0.03 Normal 0.00-0.30 [facility] Comment on above: Performed By: #### C P, CDP #### [facility] [address] [place] [address] Dr. [place], [place] [id number] Forensic Specialist: Joelle Parker MD Abs.Neutrophil (Seg) 4.12 k/uL Normal 1.50-8.10 [facility] Comment on above: Performed By: #### C P, CDP #### [address] [place], [place] [id number] Forensic Specialist: Joelle Parker MD Basophils/100 WBC (Bld) 1 % Normal 0-2 [facility] Comment on above: Performed By: #### C P, CDP #### [address] [place], [place] [address] Forensic Specialist: Joelle Parker MD Eosinophils (Bld) [#/Vol] 0.74 10*3/uL High 0.00-0.44 [facility] Comment on above: Performed By: #### C P, CDP #### [address] [place], [place] [address] Forensic Specialist: Joelle Parker MD Eosinophils/100 WBC (Bld) 10 % High 1-4 [facility] Comment on above: Performed By: #### C P, CDP #### [address] [place], [place] [address] Forensic Specialist: Joelle Parker MD Erythrocyte distribution width (RBC) [Ratio] 13.8 % Normal 11.8-14.4 [facility] Comment on above: Performed By: #### C P, CDP #### [address] [place], [place] [place] [address] Forensic Specialist: Joelle Parker MD Hematocrit (Bld) [Volume fraction] 41.9 % Normal 40.7-50.3 [facility] Comment on above: Performed By: #### C P, CDP #### [address] [place], [place] [address] Forensic Specialist: Joelle Parker MD Hemoglobin (Bld) [Mass/Vol] 13.6 g/dL Normal 13.0-17.0 [facility] Comment on above: Performed By: #### C P, CDP #### [address] [place], [facility] Forensic Specialist: Joelle Parker MD Immature granulocytes/100 WBC (Bld) 0 % Normal 0 [facility] Comment on above: Performed By: #### C P, CDP #### [address] [place], [place] [id number] Forensic Specialist: Joelle Parker MD Lymphocytes (Bld) [#/Vol] 1.50 10*3/uL Normal 1.10-3.70 [facility] Comment on above: Performed By: #### C P, CDP #### [address] [place], [facility] Forensic Specialist: Joelle Parker MD Lymphocytes/100 WBC (Bld) 21 % Low 24-43 [facility] Comment on above: Performed By: #### C P, CDP #### [address] [place], [place] [address] Forensic Specialist: Joelle Parker MD MCH (RBC) [Entitic mass] 28.6 pg Normal 25.2-33.5 [facility] Comment on above: Performed By: #### C P, CDP #### [address] [place], [facility] Forensic Specialist: Joelle Parker MD MCHC (RBC) [Mass/Vol] 32.5 g/dL Normal 28.4-34.8 [facility] Comment on above: Performed By: #### C P, CDP #### [address] [place], [facility] Forensic Specialist: Joelle Parker MD MCV (RBC) [Entitic vol] 88.2 fL Normal 82.6-102.9 [facility] Comment on above: Performed By: #### C P, CDP #### [address] [place], [facility] Forensic Specialist: Joelle Parker MD Monocytes (Bld) [#/Vol] 0.68 10*3/uL Normal 0.10-1.20 [facility] Comment on above: Performed By: #### C P, CDP #### [address] [place], [facility] Forensic Specialist: Joelle Parker MD Monocytes/100 WBC (Bld) 10 % Normal 3-12 [facility] Comment on above: Performed By: #### C P, CDP #### [facility] [address] [place] [address] Forensic Specialist: Joelle Parker MD Neutrophil (Seg) 58 % Normal 36-65 [facility] Comment on above: Performed By: #### C P, CDP #### [facility] [address] [place] [address] Forensic Specialist: Joelle Parker MD NRBC Automated 0.0 per 100 WBC Normal 0.0 [facility] Comment on above: Performed By: #### C P, CDP #### [facility] [address] [place] [address] Forensic Specialist: Joelle Parker MD Platelet mean volume (Bld) [Entitic vol] 9.1 fL Normal 8.1-13.5 [facility] Comment on above: Performed By: #### C P, CDP #### [address] [place] [address] Forensic Specialist: Joelle Parker MD Platelets (Bld) [#/Vol] 214 10*3/uL Normal 138-453 [facility] Comment on above: Performed By: #### C P, CDP #### [facility] [address] [place], [place] [id number] Forensic Specialist: Joelle Parker MD RBC (Bld) [#/Vol] 4.75 10*6/uL Normal 4.21-5.77 [facility] Comment on above: Performed By: #### C P, CDP #### [facility] [address] [place] [address] Forensic Specialist: Joelle Parker MD WBC (Bld) [#/Vol] 7.1 10*3/uL Normal 3.5-11.3 [facility] Comment on above: Performed By: #### C P, CDP #### [facility] [address] [place], [place] [id number] Forensic Specialist: Joelle Parker MD Auto Diff Performed NOT REPORTED Normal [facility] Comment on above: Performed By: #### C P, CDP #### [facility] [address] [place], [place] [id number] Forensic Specialist: Joelle Parker MD Platelet Comment NOT REPORTED Normal [facility] Comment on above: Performed By: #### C P, CDP #### [facility] [address] [place], [place] [id number] Forensic Specialist: Joelle Parker MD RBC morphology finding Nom (Bld) NOT REPORTED Normal [facility] Comment on above: Performed By: #### C P, CDP #### [facility] [address] [place], [place] [id number] Forensic Specialist: Joelle Parker MD WBC Morphology NOT REPORTED Normal [facility] Comment on above: Performed By: #### C P, CDP #### [facility] [address] [place], [place] [id number] Forensic Specialist: Joelle Parker MD Ethanol Alcoholon 10-23-2021 Ethanol [Mass/Vol] mg/dL Normal <10 [facility] Comment on above: Performed By: #### A LCB #### [facility] [address] [place], [place] [id number] Forensic Specialist: Joelle Parker MD Ethanol percent <0.010 Normal <0.010 [facility] Comment on above: Performed By: #### A LCB #### [facility] [address] [place] [address] Forensic Specialist: Joelle Parker MD Troponinon 10-23-2021 Troponin, High Sens <6 Normal 0-22 [facility] Comment on above: Result Comment: High Sensitivity Troponin values cannot be compared with other Troponin methodologies. Patients with high levels of Biotin oral intake (i.e >5mg/day) may have falsely decreased Troponin levels. Samples collected within 8 hours of biotin intake may require additional information for diagnosis. Performed By: #### C P, CDP #### [facility] [address] [place], [place] [id number] Forensic Specialist: Joelle Parker MD Troponin Interp. NOT REPORTED Normal [facility] Comment on above: Performed By: #### C P, CDP #### [facility] [address] [place] [address] Forensic Specialist: Joelle Parker MD Troponin T NOT REPORTED Normal <0.03 [facility] Comment on above: Performed By: #### C P, CDP #### [facility] [address] [place], [place] [id number] Forensic Specialist: Joelle Parker MD XR CHEST PORTABLEon 10-23-20 XR CHEST PORTABLE EXAMINATION: ONE XRAY VIEW [...] Addy Gates MD 10/23/21 Final result Normal [facility] Basic Metabolic Panel w/ Ref rebecca to MGOrdered By: Yareli Jonas on 05-29-2021 Anion gap [Moles/Vol] 11 mmol/L 9 - 17 mmol/L [facility] Phone: Calcium [Mass/Vol] 9.5 mg/dL 8.6 - 10. 4 mg/dL [facility] [employer] Phone: Chloride [Moles/Vol] 104 mmol/L 98 - 10 7 mmol/L [employer] Phone: CO2 [Moles/Vol] 27 mmol/L 20 - 31 mmol/L [employer] Phone: Creatinine [Mass/Vol] 0.9 mg/dL 0.70 - 1.20 mg/dL [employer] Phone: GFR >60 >60 mL/min [email or web address] Phone: GFR Non- >60 >60 mL/min [employer] Phone: Glucose [Mass/Vol] 91 mg/dL 70 - 99 mg/dL [employer] Phone: Potassium [Moles/Vol] 3.8 mmol/L 3.7 - 5.3 mmol/L [employer] Phone: Sodium [Moles/Vol] 142 mmol/L 135 - 144 mmol/L [employer] Phone: Urea nitrogen (BldV) [Mass/Vol] 15 mg/dL 6 - 20 mg/dL [employer] Phone: Urea nitrogen/Creatinine (Bld) [Mass ratio] 17 [employer] Phone: Brain Natriuretic PeptideOrd ered By: Yareli Jonas on 05-29-2021 BNP Interpretation Pro-BNP Reference Range: [employer]ay Phone: Comment on above: Rule Out: <300 Juares Zone: Age <50 300-450 Age 50-75 300-900 Age >75 300-1800 Usually represents mild to moderate HF but other cardiopulmonary causes cannot be ruled out. Rule In: Age <50 >450 Age 50-75 >900 Age >75 >1800 Natriuretic peptide B (Bld) [Mass/Vol] 34 pg/mL <300 [employer] Phone: Comment on above: Pro-BNP results zora ot be compared to BNP results. [employer] Phone: CBC Auto DifferentialOrdered By: Yareli Jonas on 05-29-2021 Absolute Eos # 0.17 [employer] [facility] Work Phone: Absolute Immature Granulocyte <0.03 [facility] Work Phone: Absolute Lymph # 0.[address] [facility] Work Phone: Absolute [place] # 0.56 [facility] Work Phone: Basophils (Bld) [#/Vol] 0.03 10*3/uL [facility] Work Phone: Basophils/100 WBC (Bld) 1 % 0 - 2 % [facility] [employer] Work Phone: Differential Type NOT REPORTED [facility] Phone: Eosinophils/100 WBC (Bld) 3 % 1 - 4 % [facility] Phone: Hematocrit (Bld) [Volume fraction] 38.8 % Low 40.7 - 50.3 % [facility] Work Phone: Hemoglobin.gastrointesti nal spec 1 Ql (Stl) 12.6 g/dL Low 13.0 - 17.0 g/dL [employer] Phone: Immature granulocytes/100 WBC (Bld) 0 % 0 [facility] Phone: Interpretation and review of laboratory results Abnormal [facility] Phone: Lymphocytes/100 WBC (Bld) 17 % Low 24 - 43 % [facility] Phone: MCH (RBC) [Entitic mass] 28.8 pg 25. 2 - 33.5 pg [employer]ay Phone: MCHC (RBC) [Mass/Vol] 32.5 g/dL 28.4 - 34.8 g/dL [employer] Phone: MCV (RBC) [Entitic vol] 88.6 fL 82.6 - 102.9 fL [employer] Phone: Monocytes/100 WBC (Bld) 10 % 3 - 12 % M [employer] Work Phone: NRBC Automated 0.0 0.0 per 100 WBC [employer] Phone: Platelet distribution width (Bld) [Ratio] 13.3 % 11.8 - 14.4 % [employer] Phone: Platelet Estimate NOT REPORTED [employer] Phone: Platelet mean volume (Bld) [Entitic vol] 8.7 fL 8.1 - 13.5 fL [employer] Phone: Platelets (Bld) [#/Vol] 193 10*3/uL [employer] Phone: RBC (Bld) [#/Vol] 4.38 10*6/uL 4.21 - 5.7 7 m/uL [employer] Phone: RBC (Bld) [#/Vol] NOT REPORTED [employer] Phone: Segmented neutrophils/100 WBC (Bld) 69 % High 36 - 65 % [employer] Phone: Segs Absolute 3.91 [employer] Work Phone: WBC (Bld) [#/Vol] 5.7 10*3/uL [employer] Phone: WBC (Bld) [#/Vol] NOT REPORTED obopay Phone: obopay Phone: CT CHEST ABDOMEN PELVIS W CO NTRASTOrdered By: Yareli Jonas on 05-29-2021 1. No acute visceral or osseous abnormality. 2. No acute infective or inflammatory process. 3. A few bilateral inguinal lymph nodes up to 13 mm in maximal dimension likely reactive. Please correlate with physical exam. [employer] Phone: EXAMINATION: CT OF THE CHEST, ABDOMEN, [...] COMPARISON: None HISTORY: ORDERING SYSTEM PROVIDED HISTORY: [facility] lower abdominal pain TECHNOLOGIST PROVIDED HISTORY: [facility] lower abdominal pain Decision Support Exception [...] superficial soft tissues show no significant abnormalities. [employer] Work Phone: Kirt, pn Incoming Radiant Results From [employer] - 05/29/2021 2:41 PM EDT EXAMINATION: CT [...] COMPARISON: None HISTORY: ORDERING SYSTEM PROVIDED HISTORY: [facility] lower abdominal pain TECHNOLOGIST PROVIDED HISTORY: [facility] lower abdominal pain Decision Support Exception [...] likely reactive. Please correlate with physical exam. [employer]opay Phone: obopay Phone: D-Dimer, QuantitativeOrdered By: Yareli Jonas on 05-29-2021 D-Dimer, Quant 0.70 High Fluid Phone: Comment on above: When combined with [...] Interpretation and review of laboratory results Abnormal [employer]ay Phone: obopay Phone: Hepatic Function PanelOrdere d By: Yareli Jonas on 05-29-2021 Albumin [Mass/Vol] 3.7 g/dL 3.5 - 5.2 g/dL [employer] Phone: Albumin/Globulin [Mass ratio] 0.9 {ratio} Low [employer] Phone: ALP (Bld) [Catalytic activity/Vol] 88 U/L 40 - 129 U/L [employer] Phone: ALT [Catalytic activity/Vol] 54 U/L High 5 - 41 U/L [employer] Phone: AST [Catalytic activity/Vol] 32 U/L <40 [employer] Phone: Bilirubin [Mass/Vol] 0.54 mg/dL 0.3 - 1 .2 mg/dL [employer] Phone: Bilirubin, Indirect CANNOT BE CALCULATED 0.00 - 1.00 mg/dL [employer] Phone: Bilirubin.indirect [Mass/Vol] mg/dL <0.31 mg/dL [employer] Phone: Free PSA/Total PSA [Mass fraction] 7.7 g/dL 6.4 - 8.3 g/dL [employer] Phone: Globulin NOT REPORTED 1.5 - 3.8 g/dL [employer] Phone: Interpretation and review of laboratory results Abnormal [employer] Phone: Laboratory - Chemistry and C hemistry - challengeOrdered By: Yareli Jonas on 05-29-2021 GFR/1.73 sq M.predicted MDRD (S/P/Bld) [Vol rate/Area] [employer]ay Phone: Comment on above: Average GFR for 30-3 9 years old: 107 mL/min/1.73sq m Chronic Kidney Disease: <60 mL/min/1.73sq m Kidney failure: <15 mL/min/1.73sq m eGFR calculated using average adult body mass. Additional eGFR calculator available at: http://www.[employer].ScoreStream/multiple_crcl_2012.htm Stage 1: Some kidney damage normal GFR Stage 2: Mild kidney damage GFR 60-89 Stage 3: Moderate kidney damage GFR 30-59 Stage 4: Severe kidney damage GFR 15-29 Stage 5: Severe kidney damage GFR <15 ESRD - chronic treatment by dialysis or transplant LipaseOrdered By: Ellyn on 05-29-2021 Lipase [Catalytic activity/Vol] 13 U/L 13 - 60 U/L [employer] Phone: No Panel InformationOrdered By: Yareli Jonas on 05-29-2021 No acute intracrania l abnormality. No acute fracture dislocation involving cervical spine. [employer] Phone: EXAMINATION: CT OF THE HEAD WITHOUT [...] appear grossly unremarkable. Lung apices are clear. [employer] Work Phone: [place], pn Incoming Radiant Results From [employer] - 05/29/2021 2:15 PM EDT EXAMINATION: CT [...] No acute fracture dislocation involving cervical spine. obopay Phone: obopay Phone: obopay Phone: Protime-INROrdered By: Duane Jonas on 05-29-2021 INR Coag (Bld) [Relative time] 1.1 {INR} [employer] Phone: Comment on above: Non-therapeutic Range: INR = 0.9-1.2 Therapeutic Range: Moderate Anticoagulant Intensity: INR = 2.0-3.0 High Anticoagulant Intensity: INR = 2.5-3.5 PT Coag (PPP) [Time] 13.9 s [email or web address] Phone: obopay Phone: TroponinOrdered By: Yareli coles on 05-29-2021 Troponin Interp NOT REPORTED [employer] [facility] Work Phone: Troponin T NOT REPORTED <0.03 ng/mL [employer] [facility] [employer] Work Phone: Troponin, High Sensitivity 13 ng/L 0 - 22 ng/L [employer]opay Phone: Comment on above: High Sensitivity Troponin values cannot be compared with other Troponin methodologies. Patients with high levels of Biotin oral intake (i.e >5mg/day) may have falsely decreased Troponin levels. Samples collected within 8 hours of biotin intake may require additional information for diagnosis. [facility] Work Phone: Urinalysis, reflex to micros copicOrdered By: Yareli Jonas on 05-29-2021 Bil[address] NEGATIVE [facility] Work Phone: Color, UA YELLOW YELLOW [facility] [employer] Work Phone: Glucose, Ur Negative NEGATIVE [facility] Work Phone: Ketones Ql (U) Negative NEGATIVE [facility] Work Phone: Leukocyte esterase Test strip Ql (U) Negative NEGATIVE [facility] Work Phone: Nitrite, Urine Negative NEGATIVE [facility] Work Phone: pH, UA 8.0 [facility] [employer] Work Phone: Protein, UA Negative NEGATIVE [facility] Work Phone: Specific [place], UA 1.010 [facility] [employer] Work Phone: Turbidity UA CLEAR CLEAR [facility] [employer] Work Phone: Urinalysis Comments NOT REPORTED [facility] [employer] Work Phone: Urine Hgb Negative NEGATIVE [facility] [employer] Phone: Urobilinogen, Urine Normal Normal [facility] [employer] Work Phone: [facility] Work Phone: VL DUP LOWER EXTREMITY VENOU S BILATERALOrdered By: Yareli Jonas on 05-29-2021 Kirt, Mhpn Incoming Cardio Results From [facility]/ - 05/29/2021 4:05 PM EDT [facility] Vascular Lower Extremities DVT Study Procedure Patient Name COTY Date of Study 05/29/2021 TIP Plata Date of 1980 Gender Male Age 41 year(s) Race Room Number 06 Corporate ID [id number] # Patient Acct [id number] # MR # [id number] Investigator Erinn Ray RVT Interpreting Physician Mckayla Baltazar MD Referring Referring Physician YARELI JONAS Nurse Practitioner Additional Comments Results were faxed to ER 05/29/2021 @ [facility]. Procedure Type of Study: Veins: Lower Extremities [...] +---- ------+ -+---- (more content not included)... obopay Phone: obopay Phone: Basic Metabolic Panelon 02-0 Anion gap [Moles/Vol] 9 mmol/L 9 - 17 mmol/L [facility] [place] Bun/Cre Ratio 12 [facility], [place] Calcium [Mass/Vol] 9.0 mg/dL 8.6 - 10. 4 mg/dL [facility] [place] Chloride [Moles/Vol] 99 mmol/L 98 - 10 7 mmol/L [employer] [place] CO2 [Moles/Vol] 27 mmol/L 20 - 31 mmol/L [facility] [place] Creatinine [Mass/Vol] 0.93 mg/dL 0.7 - 1.2 mg/dL [facility] [place] GFR >60 >60 mL/min [facility] [place] GFR Non- >60 >60 mL/min [place] Glucose [Mass/Vol] 112 mg/dL High 70 - 99 mg/dL [place] Interpretation and review of laboratory results Abnormal [place] Potassium [Moles/Vol] 3.9 mmol/L 3.7 - 5.3 mmol/L [place] Sodium [Moles/Vol] 135 mmol/L 135 - 144 mmol/L [place] Urea nitrogen [Mass/Vol] 11 mg/dL 6 - 20 mg/d L [place] Blood Gas, Arterialon 2020 Guille Test PASS [place] aPTT Coag (Bld) [Time] 37.0 s [place] Carboxyhemoglobin NOT REPORTED 0 - 5 % [place] FIO2 28 [place] HCO3, Arterial 25.7 mmol/L 22 - 26 mmol/L [place] Methemoglobin NOT REPORTED 0 - 1.9 % [place] Mode NOT REPORTED [place] Negative Base Excess, Art NOT REPORTED 0 - 2 mmol/L [place] NOTIFICATION NOT REPORTED [place] NOTIFICATION TIME NOT REPORTED [place] O2 Device/Flow/% Cannula [place], [place] Comment on above: 2 Oxygen saturation in Blood 97.1 % 95 - 98 % [place] Oxyhemoglobin NOT REPORTED 95 - 98 % [place] pCO2, Art, Temp Adj NOT REPORTED [place] pCO2, Arterial 44.5 [place], [place] Peep/Cpap NOT REPORTED [place] pH, Art, Temp Adj NOT REPORTED [place] pH, Arterial 7.380 [place] pO2, Art, Temp Adj NOT REPORTED [place] pO2, Arterial 94.4 [place], [place] Positive Base Excess, Art 0.3 mmol/L 0 - 2 mmol/L [place] PSV NOT REPORTED [place] Pt. Position SUPINE [place] Sample Site Right Radial Artery [place], [place] Set Rate NOT REPORTED [place] Text for Respiratory NOT REPORTED Me [place] Total Hb NOT REPORTED 12 - 16 g/dl [place], [place] Total Rate NOT REPORTED [place] VT NOT REPORTED [place] Brain Natriuretic Peptideon 12-16-2020 Natriuretic peptide B (Bld) [Mass/Vol] Pro-BNP Reference Range: [place] Comment on above: Rule Out: <300 Juares Zone: Age <50 300-450 Age 50-75 300-900 Age >75 300-1800 Usually represents mild to moderate HF but other cardiopulmonary causes cannot be ruled out. Rule In: Age <50 >450 Age 50-75 >900 Age >75 >1800 Natriuretic peptide B (Bld) [Mass/Vol] 31 pg/mL <300 [place] Comment on above: Pro-BNP results zora ot be compared to BNP results. CBC Auto Differentialon Basophils (Bld) [#/Vol] 0.00 10*3/uL [place] Basophils/100 WBC (Bld) 0 % 0 - 2 % [place] Differential Type NOT REPORTED [place] Eosinophils (Bld) [#/Vol] 0.09 10*3/uL [place] Eosinophils/100 WBC (Bld) 2 % 1 - 4 % [place] Erythrocyte distribution width (RBC) [Ratio] 14.9 % High 11.8 - 14.4 % [place] Hematocrit (Bld) [Volume fraction] 37.8 % Low 40.7 - 50.3 % [place] Hemoglobin (Bld) [Mass/Vol] 12.4 g/dL Low 13 - 17 g/dL [place] Immature granulocytes (Bld) [#/Vol] 0.00 10*3/uL [place] Immature granulocytes (Bld) [#/Vol] 0 % 0 [place] Interpretation and review of laboratory results Abnormal [place] Lymphocytes (Bld) [#/Vol] 0.61 10*3/uL Low [place] Lymphocytes/100 WBC (Bld) 13 % Low 24 - 43 % [place] MCH (RBC) [Entitic mass] 28.7 pg 25. 2 - 33.5 pg [place] MCHC (RBC) [Mass/Vol] 32.8 g/dL 28.4 - 34.8 g/dL [place] MCV (RBC) [Entitic vol] 87.5 fL 82.6 - 102.9 fL [place] Monocytes (Bld) [#/Vol] 1.03 10*3/uL [place] Monocytes/100 WBC (Bld) 22 % High 3 - 12 % [place] Morphology Adis (Bld) [Interp] Normal [place] Platelet mean volume (Bld) [Entitic vol] 8.6 fL 8.1 - 13.5 fL [place] Platelets (Bld) [#/Vol] 195 10*3/uL [place] Platelets (Bld) [#/Vol] NOT REPORTED [place] RBC (Bld) [#/Vol] 4.32 10*6/uL 4.21 - 5.7 7 m/uL [place] RBC morphology finding Nom (Bld) NOT REPORTED [place] Segmented neutrophils/100 WBC (Bld) 63 % 36 - 65 % [place] Segs Absolute 2.97 [place] WBC (Bld) [#/Vol] 4.7 10*3/uL [place] WBC (Bld) [#/Vol] 0.0 10*3/uL 0.0 per 10 0 WBC [place] WBC Morphology NOT REPORTED [place] COVID-19, PCRon 12-16-2020 Interpretation and review of laboratory results Abnormal [place] SARS-CoV-2, Rapid DETECTED Abnormal Not Detected [place] Comment on above: Rapid NAAT: The [...] this assay. Fact sheet for Healthcare Providers: https://www.fda.gov/media/502462/download Fact sheet for Patients: https://www.fda.gov/media/369199/download Methodology: Isothermal Nucleic Acid Amplification Results reported to the appropriate Health Department Source .NASOPHARYNGEAL SWAB [place] CT CHEST PULMONARY EMBOLISM W CONTRASTon 12-16-2020 Lymphocytes (Bld) [#/Vol] No evidence of pulmonary embolism or acute aortic disease. Mild mediastinal lymphadenopathy. Bilateral lower lobe infiltrates/atelectat ic changes but no evidence of pleural disease. [place] EXAMINATION: CTA OF THE CHEST 12/16/2020 [...] No acute bone or soft tissue abnormality. [place] [employer], [employer] Incoming Radiant Results From [employer] - 12/16/2020 11:32 AM EST EXAMINATION: CTA [...] changes but no evidence of pleural disease. [facility], [place] Drug screen multi urineon Amphetamine Screen, Ur Positive Abnormal NEGATIVE Me [facility] [place], [place] Barbiturate Screen, Ur Negative NEGATIVE Me [facility] [place], [place] Benzodiazepine Screen, Urine Negative NEGATIVE [facility], [place] Buprenorphine Urine Negative NEGATIVE [facility], [place] Cannabinoid Scrn, Ur Positive Abnormal NEGATIVE [facility] [place], [place] Cocaine Metabolite, Urine Positive Abnormal NEGATIVE [facility], [place] Interpretation and review of laboratory results Abnormal [facility], [place] MDMA, Urine NOT REPORTED NEGATIVE [facility] h- [place], [place] Methadone Screen, Urine Negative NEGATIVE M [facility], [place] Methamphetamine, Urine Positive Abnormal NEGATIVE Me [facility] [place], [place] Opiates, Urine Positive Abnormal NEGATIVE [facility], [place] Oxycodone Screen, Ur Negative NEGATIVE [facility] [place], [place] Phencyclidine, Urine Negative NEGATIVE [facility] [place], [place] Propoxyphene, Urine Negative NEGATIVE [place] Test Information NOT REPORTED [place] Tricyclic Antidepressants, Urine Negative NEGATIVE [place] Comment on above: Drug screen results are to be used for medical purposes only. All positive results are unconfirmed. Testing for employment or legal uses should be sent to a reference laboratory for confirmation. Ethanolon 12-16-2020 Ethanol [Mass/Vol] mg/dL <10 mg/dL [place] Ethanol percent <0.010 <0.010 % [place] Hepatic Function Panelon Albumin [Mass/Vol] 3.9 g/dL 3.5 - 5.2 g/dL [place] Albumin/Globulin [Mass ratio] 1.1 {ratio} [place] ALP [Catalytic activity/Vol] 91 U/L 40 - 129 U/L [place] ALT [Catalytic activity/Vol] 52 U/L High 5 - 41 U/L [place] AST [Catalytic activity/Vol] 39 U/L <40 [place] Bilirubin Ql (U) 0.26 mg/dL Low 0.3 - 1.2 mg/dL [place] Bilirubin, Indirect CANNOT BE CALCULATED 0 - 1 mg/dL [place] Bilirubin.direct [Mass/Vol] mg/dL <0.31 mg/dL [place] Globulin (S) [Mass/Vol] NOT REPORTED 1.5 - 3.8 g/dL [place] Interpretation and review of laboratory results Abnormal [place] Protein [Mass/Vol] 7.5 g/dL 6.4 - 8.3 g/dL [place] Metabolic Panelon 12-16-2020 GFR/1.73 sq M predicted among non-blacks MDRD (S/P/Bld) [Vol rate/Area] [place] Comment on above: Average GFR for 30-3 9 years old: 107 mL/min/1.73sq m Chronic Kidney Disease: <60 mL/min/1.73sq m Kidney failure: <15 mL/min/1.73sq m eGFR calculated using average adult body mass. Additional eGFR calculator available at: http://www.[employer]/multiple_crcl_2012.htm Stage 1: Some kidney damage normal GFR Stage 2: Mild kidney damage GFR 60-89 Stage 3: Moderate kidney damage GFR 30-59 Stage 4: Severe kidney damage GFR 15-29 Stage 5: Severe kidney damage GFR <15 ESRD - chronic treatment by dialysis or transplant Otheron 12-16-2020 SARS-CoV-2 [place] Troponinon 12-16-2020 Troponin I.cardiac [Mass/Vol] NOT REPORTED [place] Troponin T.cardiac [Mass/Vol] NOT REPORTED <0.03 ng/mL [place] Troponin, High Sensitivity 6 ng/L 0 - 22 ng/L [place] Comment on above: High Sensitivity Troponin values cannot be compared with other Troponin methodologies. Patients with high levels of Biotin oral intake (i.e >5mg/day) may have falsely decreased Troponin levels. Samples collected within 8 hours of biotin intake may require additional information for diagnosis. Troponin I.cardiac [Mass/Vol] NOT REPORTED [place] Troponin T.cardiac [Mass/Vol] NOT REPORTED <0.03 ng/mL [place] Troponin, High Sensitivity 6 ng/L 0 - 22 ng/L [place] Comment on above: High Sensitivity Troponin values cannot be compared with other Troponin methodologies. Patients with high levels of Biotin oral intake (i.e >5mg/day) may have falsely decreased Troponin levels. Samples collected within 8 hours of biotin intake may require additional information for diagnosis. XR CHEST PORTABLEon 12-16-19 21 [place]irt, [facility] Incoming Radiant Results From [employer] ( [facility] )[employer] - 12/16/2020 7:18 AM EST EXAMINATION: ONE [...] viral pneumonia. Pulmonary edema cannot be excluded. JUS Roper EXAMINATION: ONE XRA Y VIEW OF THE CHEST 12/16/2020 6:50 am COMPARISON: March 16, 2016 HISTORY: ORDERING SYSTEM PROVIDED HISTORY: Cp TECHNOLOGIST PROVIDED HISTORY: Cp Chest pain FINDINGS: Subtle hazy perihilar and bibasilar opacities. Cardiomediastinal within normal limits. Trace left pleural effusion cannot be excluded. No pneumothorax or subdiaphragmatic free air. No acute osseous abnormality identified. JUS Roper Subtle multifocal bilateral opacities concerning for developing multifocal or viral pneumonia. Pulmonary edema cannot be excluded. JUS Roper Discharge [id number] Discharge Profile2 Discharge Orders: Anticipated Discharge Date: Anticipated Discharge [id number] Anticipated Discharge Time09:25 Activity: activity as tolerated. May shower. Diet: Dietregular Provider FINAL REVIEW of Orders: Final Review: Final Review of Medication Reconciliation and Orders Completedby Physician Reviewing ProviderTarans MD Mainor at 29-Apr-2020 09:29:52 Appointments: Follow-Up Appointment 01: Physician/Dept/[facility] Saul Guerrero Reason for ReferralCOPD Call to Schedule in2 weeks Phone [phone] Follow-Up Appointment 02: Physician/Dept/[facility] Call to Schedule in1 week Electronic Signatures: Timmy Hayward) (Signed 29-Apr-2020 09:29) Authored: Discharge Orders, Provider FINAL REVIEW of Orders, Appointments, Gold Form - Showroom Consultant Summary Last Updated: 29-Apr-2020 09:29 by Timmy Hayward) Normal [facility] and Physical - Critical Care [...] Objective: Objective Information: Objective Information T PRBPSpO2 [id number]/649 4% Date/Time04/29 13: 13: 13: 13: 13:09 Range(36.8C - 37.8C ) (100 - 106 ) (18 - 18 ) (116 - 132 )/ (57 - 64 ) (94% - 94% ) Highest temp of 37.8 C was recorded at 04/28 19:46 Pain reported at 04/29 7:58: 0 = None ---- Intake and Output ----- Mn/Dy/[facility]Out[facility] Apr 29, 2020 2:00 [id number] Apr 29, 2020 6:00 [id number] Apr 28, 2020 10:00 [id number] The Intake and Output Totals for the last 24 hours are: [facility]Out[facility] [id number] Date: Weight/Scale Type: 29-Apr-2020 04:5284.3 kg 28-Apr-2020 06:0081.3 kg / bed 27-Apr-2020 11:3780.7 [...] Updated: 29-Apr-2020 19:14 by Saul Guerrero) Normal [facility] BASIC METABOLIC PANELon 06- Anion gap [Moles/Vol] 13 mmol/L Normal 10 - 20 [facility] Comment on above: Performed By: #### B MP ####[facility] [place] [address] Calcium [Mass/Vol] 9.0 mg/dL Normal 8.6 - 10.3 [facility] Comment on above: Performed By: #### B MP ####[address] [address] Chloride [Moles/Vol] 105 mmol/L Normal 98 - 107 [facility] Comment on above: Performed By: #### B MP ####[address] [address] Creatinine [Mass/Vol] 0.84 mg/dL Normal 0.50 - 1.30 [facility] Comment on above: Performed By: #### B MP ####[address] [address] GFR- AM. >60 Normal >60 [facility] Comment on above: Result Comment: CALC ULATIONS OF ESTIMATED GFR ARE PERFORMED USING THE MDRD STUDY EQUATION FOR THE IDMS-TRACEABLE CREATININE METHODS. CLIN CHEM 2007;53:766-72 Performed By: #### B MP ####[address] [address] GFR-NON AM. >60 Normal >60 [facility] Comment on above: Performed By: #### B MP ####[address] [address] Glucose [Mass/Vol] 173 mg/dL High 74 - 99 [facility] Comment on above: Performed By: #### B MP ####[address] [address] HCO3 (Bld) [Moles/Vol] 25 mmol/L Normal 21 - 32 [facility] Comment on above: Performed By: #### B MP ####[address] [address] Potassium [Moles/Vol] 4.3 mmol/L Normal 3.5 - 5.3 [facility] Comment on above: Performed By: #### B MP ####[address] [address] Sodium [Moles/Vol] 139 mmol/L Normal 136 - 145 [facility] Comment on above: Performed By: #### B MP ####[address] [address] Urea nitrogen [Mass/Vol] 11 mg/dL Normal 6 - 23 [facility] Comment on above: Performed By: #### B MP ####[address] [place] [address] CBCon 04-28-2020 Erythrocyte distribution width (RBC) [Ratio] 13.8 % Normal 11.5 - 14.5 [facility] Comment on above: Performed By: #### C BC ####[address] [address] Hematocrit (Bld) [Volume fraction] 41.3 % Normal 41.0 - 52.0 [facility] Comment on above: Performed By: #### C BC ####[address] [address] Hemoglobin (Bld) [Mass/Vol] 13.8 g/dL Normal 13.5 - 17.5 [facility] Comment on above: Performed By: #### C BC ####[address] [address] MCHC (RBC) [Mass/Vol] 33.4 g/dL Normal 32.0 - 36.0 [facility] Comment on above: Performed By: #### C BC ####[address] [address] MCV (RBC) [Entitic vol] 91 fL Normal 80 - 100 [facility] Comment on above: Performed By: #### C BC ####[address] [address] Platelets (Bld) [#/Vol] 239 10*3/uL Normal 150 - 450 [facility] Comment on above: Performed By: #### C BC ####[address] [address] RBC (Bld) [#/Vol] 4.52 x10E12/L Normal 4.50 - 5.90 [facility] Comment on above: Performed By: #### C BC ####[facility] [place] [address] WBC (Bld) [#/Vol] 8.4 10*3/uL Normal 4.4 - 11.3 [facility] Comment on above: Performed By: #### C ####[facility] [place] [address] Discharge Planning [id number] 04-28-2020 Discharge Planning Note2 Discharge Plann ing: Anticipated Discharge [id number] Discharge Planning 04/27/2020 patient admit to micu [...] TCC 04/28/20 1245 Social Work Note THE BRICKMASON HELPER HAS BEEN NOTIFIED OF THE PT'S SELF PAY STATUS. THE PT HAS BEEN ASSESSED BY THE [facility] ON 04/27/20. 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 Luann BOB, [facility] 04/28/20 1400 Social Work Note THE BRICKMASON HELPER MET THIS DATE WITH THE PT BEING [...] STATES THAT HE HAS BEEN OUT OF [facility] SINCE THE BEGINNING OF THE YEAR AND [...] OWN . THE PT ALSO ACCEPTED THE [facility]. THE BRICKMASON HELPER WILL CONTINUE TO REMAIN AVAILABLE SUPPORTIVELY. Luann BOB, [facility] 04/29/2020 @ 1112 Spring Tacker Note: SWer is assissting with D/C plan and Meds to Bed fill. SWer is going to fill scripts through [facility] and bill to the department accordingly. RUKHSANA Villegas [employer] HELPER 04/29/20 As this nurse was reviewing pt's [...] going instructions. CTRN. Assessment: Discharge Planning Assessment [id number] Stated Reason for Admissionsob(1) [place] ([place]) Lives Withfriend(s)(1) Living Arrangementsnursing home; house(1) Resource/Environmenta l Concernsnon(1) Anticipated Transition [place](1) Services Anticipated at Transitionnon(1) Nursing Checklist: Lines/Cathetersremove d/appropriate for next level of care Discharge Med Rec Reconciled with Jj Patient has Prescriptionsyes DME equipment orderedyes Transportation for Discharge Confirmedyes Discharge Instructions Reviewed WithPatient Discharge Instructions Outcomeverbalize recall/understanding Discharge Documentation: Discharge/Transfer Date/[id number] 13:13 Discharge Modewheelchair Transportation Methodtransportation service Valuables/Medications /Belongings Returnedyes Final DispositionHome Electronic Signatures: Leilani Valencia (FINGER WAVER) (Signed 28-Apr-2020 11:45) Authored: Discharge Planning Note2 Marjorie Corbin (RN) (Signed 27-Apr-2020 22:37) Authored: Discharge Planning Note2 Stacey Goldman () (Signed 29-Apr-2020 11:13) Authored: Discharge Planning Note2 Luann Larkin () (Signed 28-Apr-2020 14:09) Authored: Discharge Planning Note2 Ava Kramer (RN) (Signed 29-Apr-2020 13:14) Authored: Discharge Planning Note2 Last Updated: 29-Apr-2020 13:14 by Ava Kramer (RN) References: 1. Data Referenced From Patient Profile - Adult v2 17-Arturo-2020 11:37 Normal [facility] History and Physical - Criti hemalatha [place] [...] Objective: Objective Information: Objective Information T PRBPSpO2 [id number]/669 1% Date/Time04/28 14:006 16: 16: 16: 16:08 Range(36.5C - 36.9C [...] Intake and Output ----- Mn/Dy/Year TimeIntakeOutputNet Apr 28, 2020 2:00 [id number] Apr 28, 2020 6:00 [id number] Apr 27, 2020 10:00 [id number] The Intake and Output Totals for the last 24 hours are: IntakeOutputNet [id number] Date: Weight/Scale Type: 28-Apr-2020 06:0081.3 kg / [...] 239 RDW-CV 13.8 Culture, Blood Trending View [id number] 08:33:00 27-Apr-2020 07:49:00 Culture, BloodNEGATIVE TO DATE, [...] Last Updated: 28-Apr-2020 17:00 by Saul Guerrero) Normal [facility] ARTERIAL FULL PANELon 2019 BASE EXCESS-BLOOD -1.7 mmol/L Normal -2.0 - 3.0 [facility] Comment on above: Performed By: #### A FPA3 #### [address] [address] CALCIUM,IONIZED 1.21 mmol/L Normal 1.10 - 1.33 [facility] Comment on above: Performed By: #### A FPA3 #### [address] [address] Chloride [Moles/Vol] 103 mmol/L Normal 98 - 107 [facility] Comment on above: Performed By: #### A FPA3 #### [address] [address] FIO2 28 % Normal [facility] Comment on above: Performed By: #### A FPA3 #### [address] [address] Glucose [Mass/Vol] 113 mg/dL High 74 - 99 [facility] Comment on above: Performed By: #### A FPA3 #### [address] [address] Hematocrit (Bld) [Volume fraction] 49.0 % Normal 41.0 - 52.0 [facility] Comment on above: Performed By: #### A FPA3 #### [address] [address] HGB,CALCULATED 16.5 g/dL Normal 13.5 - 17.5 [facility] Comment on above: Performed By: #### A FPA3 #### [address] [address] Lactate [Moles/Vol] 1.4 mmol/L Normal 0.4 - 2.0 [facility] Comment on above: Performed By: #### A FPA3 #### [address] [address] Oxygen (Bld) [Partial pressure] 95 mm[Hg] Normal 85 - 95 [facility] Comment on above: Performed By: #### A FPA3 #### [address] [address] PCO2 41 mmHg Normal 38 - 42 [facility] Comment on above: Performed By: #### A FPA3 #### [address] [address] pH (Bld) 7.37 [pH] Low 7.38 - 7.42 [facility] Comment on above: Performed By: #### A FPA3 #### [address] [address] Potassium [Moles/Vol] 3.8 mmol/L Normal 3.5 - 5.3 [facility] Comment on above: Performed By: #### A FPA3 #### [address] [address] RBC (Bld) [#/Vol] 23.4 mmol/L Normal 22.0 - 26.0 [facility] Comment on above: Performed By: #### A FPA3 #### [address] [address] SO2 97 % Normal 94 - 100 [facility] Comment on above: Performed By: #### A FPA3 #### [address] [address] Sodium [Moles/Vol] 137 mmol/L Normal 136 - 145 [facility] Comment on above: Performed By: #### A FPA3 #### [address] [address] Admission Risk Screen - Adul ton 04-27-2020 [...] risk with low risk for associated injury [place] Safety InterventionsWDL *orient to call system *instruct [...] Communicatenone Learning Preferencesaudio Cultural Considerationsnone Developmental Considerationsnone Sabianist Considerationsnone Learning Assessment (Other Learner): Other learner [...] Spiritual Screen: Are there any cultural, spiritual, quaker practices/values/need s that are important for us to knowno CAGE: Is this an injured patient at a Trauma Center ([facility]/[place]/[facility]/[place]): no Vaccinations: Vaccination - Influenza Vaccination Screen: Is it flu season (between and February 21)No Vaccination - Pneumonia Vaccination Screen: Patient has received a previous pneumonia vaccine:no/unknown... Immunocompetent persons with underlying chronic conditions or reside in fdc care facilitiesnone of these conditions Persons with [...] Last Updated: 27-Apr-2020 11:45 by Sowmya Cristobal (RN) References: 1. Data Referenced From Triage - ED 27-Apr-2020 07:38 Normal [facility] BLOOD CULTURE, BACTERIALon 0 04-27-2020 Cholesterol [Mass/Vol] PATIENT: TIP ANSARI [id number] : 84 AGE: SEX: M ORDERED BY: MELLISA WITT SOURCE: Blood COLLECTED: 04/27/20 08:33 ANTIBIOTICS AT [facility].: RECEIVED : 04/27/20 18:00 SITE: R E S U L T S BLOOD CULTURE, BACTERIAL FINAL 05/02/20 19:42 No Growth at 1 days No Growth at 2 days No Growth at 3 days No Growth at 4 days NO GROWTH - FINAL REPORT Normal [facility] Comment on above: Performed By: #### P TINR #### [place] [address] Cholesterol [Mass/Vol] PATIENT: TIP ANSARI [facility] [id number] : 84 AGE: SEX: M ORDERED BY: MELLISA WITT SOURCE: Blood COLLECTED: 04/27/20 07:49 ANTIBIOTICS AT [facility].: RECEIVED : 04/27/20 18:00 SITE: R E S U L T S BLOOD CULTURE, BACTERIAL FINAL 05/02/20 19:42 No Growth at 1 days No Growth at 2 days No Growth at 3 days No Growth at 4 days NO GROWTH - FINAL REPORT Normal [facility] Comment on above: Performed By: #### P TINR #### [address] [address] BNPon 04-27-2020 Natriuretic peptide B (Bld) [Mass/Vol] 19 pg/mL Normal 0 - 99 [facility] Comment on above: Result Comment: . <1 00 pg/mL - Heart failure unlikely 100-299 pg/mL - Intermediate probability of acute heart . failure exacerbation. Correlate with clinical . context and patient history. >=300 pg/mL - Heart Failure likely. Correlate with clinical . context and patient history. BNP testing is performed using different testing methodology at [facility] than at other [facility]. Direct result comparisons should only be made within the same method. Performed By: #### B NP2 #### [address] [address] CBC AND DIFFERENTIALon 04-27 % AUTOMATED IMMATURE GRAN 0.2 % Normal 0.0 - 0.9 [facility] Comment on above: Result Comment: [place] ture Granulocyte Count (IG) includes promyelocytes, myelocytes and metamyelocytes but does not include bands. Percent differential counts (%) should be interpreted in the context of the absolute cell counts (cells/L). Performed By: #### C BCDF #### [address] [address] Basophils (Bld) [#/Vol] 0.06 10*3/uL Normal 0.00 - 0.1 0 [facility] Comment on above: Performed By: #### C BCDF #### [address] [address] Basophils/100 WBC (Bld) 0.6 % Normal 0.0 - 2.0 [facility] Comment on above: Performed By: #### C BCDF #### [address] [address] Eosinophils (Bld) [#/Vol] 0.87 10*3/uL High 0.00 - 0.70 [facility] Comment on above: Performed By: #### C BCDF #### [address] [address] Eosinophils/100 WBC (Bld) 8.6 % Normal 0.0 - 6.0 [facility] Comment on above: Performed By: #### C BCDF #### [address] [address] Erythrocyte distribution width (RBC) [Ratio] 13.6 % Normal 11.5 - 14.5 [facility] Comment on above: Performed By: #### C BCDF #### [address] [address] Hematocrit (Bld) [Volume fraction] 49.2 % Normal 41.0 - 52.0 [facility] Comment on above: Performed By: #### C BCDF #### [address] [address] Hemoglobin (Bld) [Mass/Vol] 16.7 g/dL Normal 13.5 - 17.5 [facility] Comment on above: Performed By: #### C BCDF #### [address] [address] Lymphocytes (Bld) [#/Vol] 2.10 10*3/uL Normal 1.20 - 4.80 [facility] Comment on above: Performed By: #### C BCDF #### [address] [address] Lymphocytes/100 WBC (Bld) 20.6 % Normal 13.0 - 44.0 [facility] Comment on above: Performed By: #### C BCDF #### [address] [address] MCHC (RBC) [Mass/Vol] 33.9 g/dL Normal 32.0 - 36.0 [facility] Comment on above: Performed By: #### C BCDF #### [address] [address] MCV (RBC) [Entitic vol] 91 fL Normal 80 - 100 [facility] Comment on above: Performed By: #### C BCDF #### [address] [address] Monocytes (Bld) [#/Vol] 0.88 10*3/uL Normal 0.10 - 1.0 0 [facility] Comment on above: Performed By: #### C BCDF #### [address] [address] Monocytes/100 WBC (Bld) 8.7 % Normal 2.0 - 10.0 [facility] Comment on above: Performed By: #### C BCDF #### [address] [address] Neutrophils (Bld) [#/Vol] 6.24 10*3/uL Normal 1.20 - 7.70 [facility] Comment on above: Performed By: #### C BCDF #### [address] [address] Neutrophils/100 WBC (Bld) 61.3 % Normal 40.0 - 80.0 [facility] Comment on above: Performed By: #### C BCDF #### [address] [address] Platelets (Bld) [#/Vol] 256 10*3/uL Normal 150 - 450 [facility] Comment on above: Performed By: #### C BCDF #### [address] [address] RBC (Bld) [#/Vol] 5.41 x10E12/L Normal 4.50 - 5.90 [facility] Comment on above: Performed By: #### C BCDF #### [address] [address] WBC (Bld) [#/Vol] 10.2 10*3/uL Normal 4.4 - 11.3 [facility] Comment on above: Performed By: #### C BCDF #### [address] [place] [address] CHEST 1 VIEWon 04-27-2020 CHEST 1 VIEW Patient Name: TIP ANSARI STUDY: CHEST 1 VIEW; 04/27/2020 8:25 am INDICATION: SOB. COMPARISON: None. ACCESSION NUMBER(S): [id number] ORDERING CLINICIAN: MELLISA WITT FINDINGS: CARDIOMEDIASTINAL SILHOUETTE AND VASCULATURE: Cardiac size: Within normal limits. 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 The lungs are clear without discrete infiltrate. ABDOMEN AND OTHER FINDINGS: No remarkable upper abdominal findings. BONES: No acute osseous changes. IMPRESSION: 1. Mild COPD. Electronically signed by: VINCE OROZCO MD Normal [facility] COMPREHENSIVE PANELon 2019 Albumin [Mass/Vol] 4.2 g/dL Normal 3.4 - 5.0 [facility] Comment on above: Performed By: #### C MP #### [address] [address] ALP [Catalytic activity/Vol] 65 U/L Normal 33 - 120 [facility] Comment on above: Performed By: #### C MP #### [address] [address] ALT [Catalytic activity/Vol] 60 U/L High 10 - 52 [facility] Comment on above: Result Comment: Susanne ents treated with Sulfasalazine may generate falsely decreased results for ALT. Performed By: #### C MP #### [address] [address] Anion gap [Moles/Vol] 17 mmol/L Normal 10 - 20 [facility] Comment on above: Performed By: #### C MP #### [address] [address] AST [Catalytic activity/Vol] 36 U/L Normal 9 - 39 [facility] Comment on above: Performed By: #### C MP #### [address] [address] Bilirubin [Mass/Vol] 0.8 mg/dL Normal 0.0 - 1.2 [facility] Comment on above: Performed By: #### C MP #### [address] [address] Calcium [Mass/Vol] 9.5 mg/dL Normal 8.6 - 10.3 [facility] Comment on above: Performed By: #### C MP #### [address] [address] Chloride [Moles/Vol] 102 mmol/L Normal 98 - 107 [facility] Comment on above: Performed By: #### C MP #### [address] [address] Creatinine [Mass/Vol] 0.92 mg/dL Normal 0.50 - 1.30 [facility] Comment on above: Performed By: #### C MP #### [address] [address] GFR- AM. >60 Normal >60 [facility] Comment on above: Result Comment: CALC ULATIONS OF ESTIMATED GFR ARE PERFORMED USING THE MDRD STUDY EQUATION FOR THE IDMS-TRACEABLE CREATININE METHODS. CLIN CHEM 2007;53:766-72 Performed By: #### C MP #### [address] [address] GFR-NON AM. >60 Normal >60 [facility] Comment on above: Performed By: #### C MP #### [address] [address] Glucose [Mass/Vol] 118 mg/dL High 74 - 99 [facility] Comment on above: Performed By: #### C MP #### [address] [address] HCO3 (Bld) [Moles/Vol] 25 mmol/L Normal 21 - 32 [facility] Comment on above: Performed By: #### C MP #### [address] [address] Potassium [Moles/Vol] 4.0 mmol/L Normal 3.5 - 5.3 [facility] Comment on above: Performed By: #### C MP #### [address] [address] Protein [Mass/Vol] 7.8 g/dL Normal 6.4 - 8.2 [facility] Comment on above: Performed By: #### C MP #### [address] [address] Sodium [Moles/Vol] 140 mmol/L Normal 136 - 145 [facility] Comment on above: Performed By: #### C MP #### [address] [address] Urea nitrogen [Mass/Vol] 6 mg/dL Normal 6 - 23 [facility] Comment on above: Performed By: #### C MP #### [address] [address] COOX PANEL, ARTERIALon 04-27 GUILLE'S TEST[COLLATERAL CIRCULATION] Yes Normal [facility] Comment on above: Performed By: #### C OOXA #### [address] [address] Performed By: #### A FPA3 #### [address] [address] DEOXY HGB 3.0 % Normal 0.0 - 5.0 [facility] Comment on above: Performed By: #### C OOXA #### [address] [address] Hemoglobin (Bld) [Mass/Vol] 1.1 % Normal [facility] Comment on above: Result Comment: REF VALUES NONSMOKERS 0.5-1.5% SMOKERS 0.5-10.0% Performed By: #### C OOXA #### [address] [address] Hemoglobin (Bld) [Mass/Vol] 16.5 g/dL Normal 13.5 - 17.5 [facility] Comment on above: Performed By: #### C OOXA #### [place] [address] MET HGB 0.6 % Normal 0.0 - 1.5 [facility] Comment on above: Performed By: #### C OOXA #### [place] [address] OXY HGB 95.3 % Normal 94.0 - 98.0 [facility] Comment on above: Performed By: #### C OOXA #### [place] [address] CORONAVIRUS 2019 BY PCRon CORONAVIRUS 2019,PCR NOT DETECTED Normal Not Detected [facility] Comment on above: Result Comment: This assay is designed to detect the RdRp gene of SARS-CoV-2 via nucleic acid amplification. A Not Detected result does not preclude COVID-19 infection since the adequacy of sample collection and/or low viral burden may result in presence of viral nucleic acids below the clinical sensitivity of this test method. Fact sheet for providers: www.fda.gov/media/493033/download Fact sheet for patients: www.fda.gov/media/406302/download This test has received FDA Emergency Use Authorization (EUA) and has been verified by [facility] ([facility] This test is only authorized for the duration of time that circumstances exist to justify the authorization of the emergency use of in vitro diagnostic tests for the detection of SARS-CoV-2 virus and/or diagnosis of COVID-19 infection under section 564(b)(1) of the Act, 21 U.S.C. 360bbb-3(b)(1), unless the authorization is terminated or revoked sooner. [facility] is certified under CLIA-88 as qualified to perform high complexity testing. Testing is performed in the [facility] laboratory located at [address] [place] [address]. Performed By: #### C OV19 #### [place] [address] Lab Specimen Source Nasal, Nasopharyngeal Normal [facility] Comment on above: Performed By: #### C OV19 #### [address] [address] History and Physical - Laureen Sorenson 04-27-2020 History and Physical - Critical Care [...] Objective: Objective Information: Objective Information T PRBPSpO2 [id number]/809 5% Date/Time04/27 7:386 11: 11: 11: 11:35 Range(36.5C - 36.5C [...] Blood Gas Results 04/27/2020 08:20 pO295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 FRACTION Marimar Abernathy Work Phone: Start: 12-13-2021 Radex wrist complete minimum 3 views Teresa Quintero BATCHER OPERATOR - ROLL TABLE OPERATOR Work Phone: Start: 12-13-2021 Assay of magnesium Rogernichole Thomas Syed DO Work Phone: Start: 12-13-2021 BASIC METABOLIC PANEL W/ REFLEX TO MG FOR LOW K Marcoelis Guzman Dixie DO Work Phone: Start: 12-13-2021 C-reactive protein [...] Phone: Start: 05-29-2021 Hepatic function panel Yareli Manzanoiss P A-C Work Phone: Start: 05-29-2021 Ecg routine ecg w/least 12 lds w/i&r Yareli Abernathy Meng PA-C Work Phone: Start: 05-29-2021 Dup-scan xtr veins complete bilateral study Yareli Abernathy Meng PA-C Work Phone: Start: 12-16-2020 BLOOD GAS, ARTERIAL Nicholas [employer] Work Phone: Start: 12-16-2020 Ct thorax w/contrast [...] Start: 06-11-2023 Influenza vaccination Flu vaccine (#1) [facility] Start: 01-20-2023 [facility]inine [facility] Start: 01-20-2023 Potassium monitoring [facility] Start: 09-05-2022 End: 09-05-2022 Patient encounter procedure 09/05/2022 Office Visit Cardiothoracic Surgery Carter Espinoza MD [address] [place] [address] [facility] Start: 07-12-2022 Influenza vaccination [facility] Start: 07-09-2022 End: 07-09-2022 Patient encounter procedure [facility] Start: 06-27-2022 End: 06-27-2022 Patient encounter procedure 06/27/2022 Office Visit Infectious Diseases Marisol Andrea MD [address] [facility], [address] [place], [place] [id number] [phone] (Work) [facility] Start: 05-23-2022 End: 05-23-2022 Patient encounter procedure 05/23/2022 Office Visit Podiatry Tip Grewal DPM [address] [place] [address] [facility] Start: 03-21-2022 End: 03-21-2022 Patient encounter procedure 03/21/2022 Office Visit Infectious Diseases Marisol Andrea MD [address] [facility], [facility] [address] [place], [place] [id number] [phone] (Work) [facility], [facility] Start: 03-01-2022 End: 01-29-2023 ECHO Complete 2D W Doppler W Color ECHO Complete 2D W Doppler W Color Echocardiography Routine MRSA bacteremia Moderate tricuspid regurgitation Expected: 03/01/2022 (Approximate), Expires: 01/29/2023 [facility] Work Phone: Comment on above: Expected: 03/01/2022 (Approximate), Expi res: 01/29/2023 Start: 02-28-2022 End: 02-28-2022 Patient encounter procedure 02/28/2022 Office Visit Cardiothoracic Surgery Carter Espinoza MD [address] [place] [address] [id number] [facility] Start: 02-26-2022 End: 02-26-2022 Patient encounter procedure 02/26/2022 Office Visit Podiatry Tip Grewal, DPThomas [address] [place] [address] [facility] Start: 02-16-2022 End: 01-30-2023 CT CHEST WO CONTRAST CT CHEST WO CONTRAST Imaging Routine Septic embolism (HCC) Expected: 02/16/2022, Expires: 01/30/2023 [facility] Phone: Comment on above: Expected: 02/16/2022, Expires: Start: 01-24-2022 End: 01-24-2022 Patient encounter procedure 01/24/2022 Office Visit Cardiothoracic Surgery Carter Espinoza MD [address] [place] [address] [facility] Start: 01-23-2022 End: 12-19-2022 ECHO Complete 2D W Doppler W Color ECHO Complete 2D W Doppler W Color Echocardiography Routine Acute bacterial endocarditis Expected: 01/23/2022 (Approximate), Expires: 12/19/2022 [facility] Phone: Comment on above: Expected: 01/23/2022 (Approximate), Expi res: 12/19/2022 Start: 01-23-2022 End: 12-19-2022 Urine Drug Screen Urine Drug Screen Lab Routine Acute bacterial endocarditis Septic embolism (HCC) Heroin abuse (HCC) Expected: 01/23/2022 (Approximate), Expires: 12/19/2022 [facility] Phone: Comment on above: Expected: 01/23/2022 (Approximate), Expi res: 12/19/2022 Start: 01-22-2022 End: 01-22-2022 Patient encounter procedure 01/22/2022 Office Visit Infectious Diseases Marisol Andrea MD [address] [facility] [place], [place] [id number] [phone] (Work) [facility], [facility] Start: 01-17-2022 End: 12-20-2022 CT CHEST WO CONTRAST CT CHEST WO CONTRAST Imaging Routine Acute bacterial endocarditis Septic embolism (HCC) Expected: 01/17/2022, Expires: 12/20/2022 [facility] Phone: Comment on above: Expected: 01/17/2022, Expires: 3 Start: 01-03-2022 End: 12-20-2022 Culture, Blood 1 Culture, Blood 1 Microbiology Routine Septic embolism (HCC) MRSA bacteremia Expected: 01/03/2022, Expires: 12/20/2022 [facility] Phone: Comment on above: Expected: 01/03/2022, Expires: 3 Start: 2022 Lipid panel [facility] Start: 12-29-2021 End: 12-29-2021 Patient encounter procedure 12/29/2021 Appointment Oncology [facility] Start: 12-22-2021 End: 12-22-2021 Patient encounter procedure 12/22/2021 Appointment Oncology [facility] Start: 07-12-2021 Influenza vaccination Flu vaccine (#1) [facility] Start: 07-12-2020 Influenza vaccination Flu vaccine (#1) [facility] [place] Start: 2001 DTaP/Tdap/Td vaccine (1 - Tdap) DTaP/Tdap/Td vaccine (1 - Tdap) [facility] Start: 2001 Hepatitis A vaccine (1 of 2 - Risk 2-dose series) Hepatitis A vaccine (1 of 2 - Risk 2-dose series) [facility] Start: 2001 Hepatitis B vaccine (1 of 3 - Risk 3-dose series) Hepatitis B vaccine (1 of 3 - Risk 3-dose series) [facility] Start: 1997 HIV screening HIV screen [facility] Start: 1994 COVID-19 Vaccine (1) COVID-19 Vaccine (1) [facility] Retrace Phone: Start: 1994 Depression Screen Depression Screen [facility] Start: 1988 Pneumococcal 0-64 years Vaccine (1 - PCV) Pneumococcal 0-64 years Vaccine (1 - PCV) [facility] Start: 1988 Pneumococcal 0-64 years Vaccine (1 of 2 - PPSV23) Pneumococcal 0-64 years Vaccine (1 of 2 - PPSV23) [facility] Start: 1987 COVID-19 Vaccine (1) COVID-19 Vaccine (1) [facility] Start: 1983 Hepatitis A vaccine (1 of 2 - Risk 2-dose series) Hepatitis A vaccine (1 of 2 - Risk 2-dose series) [facility] [employer] Start: 1983 Varicella vaccine (1 of 2 - 2-dose childhood series) Varicella vaccine (1 of 2 - 2-dose childhood series) [facility] [employer] Start: 1982 COVID-19 Vaccine (#1) COVID-19 Vaccine (#1) [facility] [employer] Start: 1982 Hepatitis B vaccine (1 of 3 - 3-dose series) Hepatitis B vaccine (1 of 3 - 3-dose series) [facility] Start: 1982 Hepatitis C screening Hepatitis C screen [facility] [place] End: 06-22-2022 Basic Metabolic Panel w/ Reflex to MG Basic Metabolic Panel w/ Reflex to MG Lab Routine Daily for 3 Days starting 06/20/2022 until 06/22/2022, 2 completed [facility]: Comment on above: Daily for 3 Days starting 06/20/2022 unt il 06/22/2022, 2 completed End: 12-20-2021 Body Fluid Cell [facility] Phone: Comment on above: One Time for 1 Occurrences starting 07/2022 until 12/20/2021 C-reactive protein C-Reactive Pr otein Lab Timed Every Other Day until discontinued starting 12/17/2021 [facility] Phone: Comment on above: Every Other Day until discontinued start ing 12/17/2021 C-reactive protein C-Reactive Pr otein Lab Add-On Q48H until discontinued starting 05/06/2022 [facility] [employer] Phone: Comment on above: Q48H until discontinued starting 022 End: 05-07-2022 C-reactive protein [facility] [facility] Phone: Comment on above: Once for 1 Occurrences starting 05/07/20 until 05/07/2022 End: 12-15-2021 Catheterization and angiography procedure details panel Cardiac Catheterization Cardiac Cath Routine One Time for 1 Occurrences starting 12/15/2021 until 12/15/2021 [facility] Phone: Comment on above: One Time for 1 Occurrences starting 02/2022 until 12/15/2021 End: 01-24-2022 Catheterization and angiography procedure details panel Cardiac Catheterization Cardiac Cath Routine One Time for 1 Occurrences starting 01/24/2022 until 01/24/2022 [facility] Phone: Comment on above: One Time for 1 Occurrences starting 01/09 until 01/24/2022 End: 06-22-2022 CBC panel - Blood by Automated count CBC Lab Routine Daily for 3 Days starting 06/20/2022 until 06/22/2022, 2 completed [facility] [employer] Phone: Comment on above: Daily for 3 Days starting 06/20/2022 unt il 06/22/2022, 2 completed Culture, Anaerobic a nd Aerobic [facility] Phone: Culture, Anaerobic a nd Aerobic Culture, Anaerobic and Aerobic Microbiology Routine 12/20/2021 2:15 PM [facility] Phone: Culture, Blood 1 Culture, Blood 1 Microbiology Routine 12/17/2021 5:47 AM [facility] Phone: Culture, Blood 1 Culture, Blood 1 Microbiology STAT 12/18/2021 4:15 PM [facility] Phone: Culture, Blood 1 Culture, Blood 1 Microbiology STAT 12/19/2021 5:43 AM [facility] Phone: End: 01-20-2022 Culture, Blood 1 [facility] Phone: Comment on above: One Time for 1 Occurrences starting 01/09 until 01/20/2022 Culture, Blood 1 Culture, Blood 1 Microbiology STAT 01/28/2022 1:31 PM EDT [facility] Phone: End: 05-05-2022 Culture, Blood 1 [employer] Phone: Comment on above: One Time for 1 Occurrences starting 04/12 until 05/05/2022 End: 05-17-2022 Culture, Blood 1 [employer] Phone: Comment on above: Once for 1 Occurrences starting 05/17/20 until 05/17/2022 End: 06-13-2022 Culture, Blood 1 [employer] Phone: Comment on above: Once for 1 Occurrences starting 06/13/20 until 06/13/2022 End: 05-05-2022 Culture, Blood 2 [employer] Phone: Comment on above: One Time for 1 Occurrences starting 04/12 until 05/05/2022 End: 05-05-2022 Culture, Urine [employer] Phone: Comment on above: One Time for 1 Occurrences starting 04/12 until 05/05/2022 End: 01-10-2022 Drug screen multi urine Drug screen multi urine Lab Routine One Time for 1 Occurrences starting 01/10/2022 until 01/10/2022 [facility] Phone: Comment on above: One Time for 1 Occurrences starting 0312/2021 until 01/10/2022 EKG 12 Lead [place] End: 01-31-2022 EKG 12 Lead EKG 12 Lead ECG Routine Tomorrow AM for 1 Occurrences starting 01/31/2022 until 01/31/2022 [facility] Phone: Comment on above: Tomorrow AM for 1 Occurrences starting 0 01/31/2022 until 01/31/2022 EKG 12 Lead EKG 12 Lead ECG Routine 01/30/2022 8:47 AM EDT [facility] Phone: End: 03-02-2022 Hepatic function 2000 panel - Serum or Plasma Hepatic Function Panel Lab Routine 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 - for 16 Occurrences starting 01/30/2022 until 03/02/2022 [facility] Phone: Comment on above: 3 x per week - for 16 Occurrences starti ng 01/30/2022 until 03/02/2022 End: 06-19-2023 Hepatic function 2000 panel - Serum or Plasma Hepatic Function Panel Lab Routine 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, 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 for 6 Occurrences starting 06/19/2022 until 06/19/2023 [employer] Phone: Comment on above: weekly for 6 Occurrences starting 2021 until 06/19/2023 End: 01-10-2022 Hepatitis B Surface Antigen [facility] Phone: Comment on above: One Time for 1 Occurrences starting 12/2021 until 01/10/2022 End: 01-10-2022 Hepatitis C Antibody [facility] Phone: Comment on above: One Time for 1 Occurrences starting 12/2021 until 01/10/2022 End: 06-19-2022 Initiate RT Protocol Initiate RT Protocol Respiratory Care Routine Continuous until discontinued starting 06/19/2022 [employer] Phone: Comment on above: Continuous until discontinued starting 0 06/19/2022 Intermittent pulse oximetry Pulse Oximetry Spot Check Respiratory Care Routine As Needed until discontinued starting 12/13/2021 [facility] Phone: Comment on above: As Needed until discontinued starting Intermittent pulse oximetry Pulse Oximetry Spot Check Respiratory Care Routine As Needed until discontinued starting 01/20/2022 [facility] Phone: Comment on above: As Needed until discontinued starting Intermittent pulse oximetry Pulse Oximetry Spot Check Respiratory Care Routine Daily until discontinued starting 06/15/2022 [employer] Phone: Comment on above: Daily until discontinued starting 2021 Nasal Cannula Oxygen Nasal Cannu la Oxygen Respiratory Care Routine Daily until discontinued starting 06/15/2022 [employer] Phone: Comment on above: Daily until discontinued starting 2021 Oxygen therapy [Mini mum Data Set] Initiate Oxygen Therapy Protocol Respiratory Care Routine Daily until discontinued starting 12/13/2021 [facility] Phone: Comment on above: Daily until discontinued starting 2021 Oxygen therapy [Mini mum Data Set] Initiate Oxygen Therapy Protocol Respiratory Care Routine As Needed until discontinued starting 01/20/2022 [facility] Phone: Comment on above: As Needed until discontinued starting Oxygen therapy [Mini mum Data Set] Initiate Oxygen Therapy Protocol Respiratory Care Routine As Needed until discontinued starting 05/06/2022 [employer] Phone: Comment on above: As Needed until discontinued starting Oxygen therapy [Mini mum Data Set] Initiate Oxygen Therapy Protocol Respiratory Care Routine As Needed until discontinued starting 06/15/2022 [employer] Phone: Comment on above: As Needed until discontinued starting Oxygen therapy [Mini mum Data Set] Initiate Oxygen Therapy Protocol Respiratory Care Routine As Needed until discontinued starting 06/16/2022 [employer] Phone: Comment on above: As Needed until discontinued starting End: 12-13-2021 PREVIOUS SPECIMEN [facility] Phone: Comment on above: Once for 1 Occurrences starting 12/13/19 22 until 12/13/2021 Respiratory care evaluation only Respiratory care evaluation only Respiratory Care Routine As Needed until discontinued starting 06/19/2022 [employer] Phone: Comment on above: As Needed until discontinued starting Surgical Pathology Surgical Path ology Lab Routine Release Upon Ordering for 1 Occurrences starting 01/26/2022 [facility] Phone: Comment on above: Release Upon Ordering for 1 Occurrences starting 01/26/2022 End: 01-10-2022 Urinalysis Urinalysis Lab Routine One Time for 1 Occurrences starting 01/10/2022 until 01/10/2022 [facility] Phone: Comment on above: One Time for 1 Occurrences starting 12/2021 until 01/10/2022 End: 12-21-2021 VANCOMYCIN, RANDOM VANCOMYCIN, RANDOM Lab Routine One Time for 1 Occurrences starting 12/21/2021 until 12/21/2021 [facility] Phone: Comment on above: One Time for 1 Occurrences starting 12/12 until 12/21/2021 End: 05-06-2022 Wound Culture Wound Culture Microbiology Routine One Time for 1 Occurrences starting 05/06/2022 until 05/06/2022 [employer] Phone: Comment on above: One Time for 1 Occurrences starting 04/12 until 05/06/2022 End: 05-06-2022 Wound Gram stain Wound Gram stain Microbiology Routine One Time for 1 Occurrences starting 05/06/2022 until 05/06/2022 [employer] Phone: Comment on above: One Time for 1 Occurrences starting 04/12 until 05/06/2022 Payers Date Payer Category Payer Unknown [id number] 1982 Unknown [id number] 1982 Unknown [id number] 2.16.8 [id number] 1982 Unknown [id number] 2.16.8 [id number] 1982 Unknown [id number] 2.16.8 [id number] 1982 Unknown [id number] 2.16.8 [id number] 1982 Unknown [id number] 2.16.8 [id number] 1982 Unknown [id number] 2.16.8 [id number] 1982 Unknown [id number] 2.16. [id number] 1982 Unknown [id number] 2.16.8 [id number] 1982 Unknown [id number] 2.16.8 [id number] 1957 Medicaid [id number]. [id number] Social History Date Type Detail Facility Start: 12-16-2020 End: 09-05-2022 Tobacco smoking status NHIS Former smoker [place] Start: 12-16-2020 End: 09-05-2022 Tobacco use and exposure Never used [place] Start: 12-16-2020 End: 01-30-2024 Alcohol intake Current non-drinker of alcohol (finding) [place] Start: 1980 Sex Assigned At Not on file [place], [place] Start: 12-21-2021 End: 06-15-2022 Exposure to SARS-CoV-2 (event) Not sure [place] History of tobacco use Current smoker [facility] Work Phone: Start: 11-12-2023 History of Social function [facility] Start: 11-12-2023 Tobacco use panel [facility] Clinical Notes 05-29-2021 to 05-28-2025 Discharge InstructionsAttachmentsClement Granger RN - 06/21/2022 4:36 PM Holley Granger RN - 06/21/2022 4:11 PM Kenneth Perez MD - 06/21/2022 11:24 AM EDTDischarge Instr - Activity Note Date & Type Note Facility 05-28-2025 Note SUBJECTIVE Reason for Visit: Tip Ansari is a 45 y.o. year old male patient being seen for hospital follow-up. HPI: Tip Ansari is a 45 y.o. 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 Was admitted recently this month to [place] for dizziness, elevated troponin, concern for endocarditis. He admitted to using cocaine before hospital visit to come off his heroin. Troponin levels were initially elevated, consistent with a Type II myocardial infarction. Echocardiogram demonstrated normal systolic function with no evidence of endocarditis. 05/28/2025 office visit: At today???s visit, the patient denies chest pain, shortness of breath, palpitations, dizziness, or lower extremity edema. 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 Medical History[1] Surgical History[2] Problem List[3] family history is not on file. Social History[4] OBJECTIVE Visit Vitals Smoking Status Former Physical Exam Constitutional: General Appearance: well-developed, appears stated age. Level of Distress: no acute distress. Neck: Jugular Veins: normal jugular venous pressure. Lungs: Auscultation: no rales or rhonchi and normal breath sounds. Cardiovascular: Rate And Rhythm: regular Heart Sounds: normal S1 and s2; Systolic Murmur: not heard. Diastolic Murmur: not heard. Extremities: no edema Peripheral Pulses: Pulses: full and equal in all extremities except if noted. Abdomen: Inspection and Palpation: non distended or tender and soft. Musculoskeletal: Inspection: no joint tenderness or swelling. Neurologic: Gait: normal gait. Psychiatric: Mental Status: alert and normal affect. Skin: Inspection and Palpation: warm and dry. Allergies: Allergies[5] Outpatient Medications: Current Outpatient Medications Medication Instructions amoxicillin (AMOXIL) 875 mg, oral, 2 times daily RT benzonatate (Tessalon) 100 mg capsule No dose, route, or frequency recorded. benzonatate (TESSALON) 100-200 mg, oral buprenorphine-naloxone (Suboxone) 8-2 mg SL film No dose, route, or frequency recorded. buprenorphine-naloxone (Suboxone) 8-2 mg SL film No dose, route, or frequency recorded. dalbavancin (DALVANCE) 1,000 mg, intravenous fluconazole (Diflucan) 100 mg tablet No dose, route, or frequency recorded. ibuprofen 800 mg, oral naloxone (Narcan) 4 mg/0.1 mL nasal spray No dose, route, or frequency recorded. predniSONE (DELTASONE) 20 mg, oral, 2 times daily RT Sublocade 100 mg/0.5 mL injection No dose, route, or frequency recorded. Sublocade 300 mg/1.5 mL injection No dose, route, or frequency recorded. Ventolin HFA 90 mcg/actuation inhaler INHALE 2 PUFFS BY MOUTH 4 TIMES DAILY Recent Labs: No visits with results within 2 Month(s) from this visit. Latest known visit with results is: Lab on 04/16/2023 Component Date Value Alpha Fetoprotein Tumor * 04/16/2023 7 HIV Combo 4G 04/16/2023 Negative Alpha 2 Macroglobulin 04/16/2023 149 Alanine Aminotransferase 04/16/2023 96 (H) Aspartate Aminotransfera* 04/16/2023 55 (H) Gamma Glutamyl Transfera* 04/16/2023 44 Urea Nitrogen, Serum 04/16/2023 15 Fibrometer Platelet Count 04/16/2023 165 Fibrometer Prothrombin I* 04/16/2023 86 (L) Fibrometer Patient Score 04/16/2023 0.46 Cirrhometer Patient Score 04/16/2023 0.05 Fibrosis Metavir Classif* 04/16/2023 F2[F1-F2] Inflameter Patient Score 04/16/2023 0.51 Inflameter Metavir Class* 04/16/2023 A1/A2 EER FIBROMETER REPORT 04/16/2023 See Note Fibrometer Interpretation 04/16/2023 See Report Protime 04/16/2023 14.0 INR 04/16/2023 1.07 Sodium 04/16/2023 139 Potassium 04/16/2023 3.9 Chloride 04/16/2023 107 CO2 04/16/2023 27 Anion Gap 04/16/2023 9 BUN 04/16/2023 15 Creatinine 04/16/2023 1.05 BUN/Creatinine Ratio 04/16/2023 14.3 Glucose 04/16/2023 91 Calcium 04/16/2023 9.7 AST 04/16/2023 43 (H) ALT (SGPT) 04/16/2023 71 (H) Alkaline Phosphatase 04/16/2023 98 Total Protein 04/16/2023 7.2 Albumin 04/16/2023 4.3 Total Bilirubin 04/16/2023 0.8 eGFR 04/16/2023 91.5 Hepatitis Be Ab 04/16/2023 Negative Hepatitis Be Ag 04/16/2023 Positive (A) HBV DNA, Quant PCR IU/mL 04/16/2023 538,246,646 HBV DNA, Quant PCR Interp 04/16/2023 Detected (A) HBV DNA, Quant PCR log I* 04/16/2023 8.73 Hepatitis B Surface Ag 04/16/2023 Reactive (A) Hep A IgM 04/16/2023 Nonreactive Hepatitis C Ab 04/16/2023 Reactive (A) Hep B Core Total Ab 04/16/2023 Reactive (A) A-1 Antitrypsin 04/16/2023 147 JESSICA Titer 04/16/2023 <1:40 Smooth Muscle Ab IgG Tit* 04/16/2023 1:40 (H) Ferritin 04/16/2023 51.0 Tissue Transglutaminase,* 04/16/2023 <2 Mitochondrial Ab 04/16/2023 2.7 Iron 04/16/2023 88 TIBC 04/16/2023 368 Iron Saturation 04/16/2023 24 UIBC (more content not included)... [facility] 01-30-2024 Hospital Discharge instructions Falguni Wan APRN - CNP - 01/30/2024 6:12 PM EDT Call [phone] ([phone]) to establish care for follow up. You can also call [facility] at [phone] to establish care. The following attachments cannot be sent through Care Everywhere.Influenza (Kyrgyz)documented in this encounter [facility] 06-21-2022 History of Present illness Narrative Discharged via ambulation with promotion writer to front door. Patient's aunt picking patient up. Patient left with belongings and dc instructions. Meds with patient at dc. Patient up in room and in bed at intervals. States his aunt will pick him up. Images from the original note were not included. [facility] Office: [phone] Mikie Rodriguez DO, Theo Lerma DO, Stuart [...] Avila MD, Lyle Woods MD, Teresa Quintero, PABLO, Leslie Rao CNP, Ro Bernard CNP, Carter Charles CNP, Mckayla Abraham PA-C, Eli Fu, FÉLIX, Keri aWlker, ROLL TABLE OPERATOR, Sherrie Rea, ROLL TABLE OPERATOR, Deysi Pablo, ROLL TABLE OPERATOR, Shelli Menon, ROLL TABLE OPERATOR, Tika Hernandez, ROLL TABLE OPERATOR, Cathleen Moran, CHANTALE, Razia Figueroa DNP, Madalyn Julien, PABLO, Amie Richardson, ROLL TABLE OPERATOR, Mary Meléndez, ROLL TABLE OPERATOR [facility] IN-PATIENT SERVICE [facility] Progress Note 06/21/2022 11:24 AM Name: Tip Ansari Acct: [id number] Room: 043 Day: 6 Admit Date: 06/15/2022 4:29 PM [...] drug use. Drugs: Cocaine, Opiates , Marijuana ([place]), and Methamphetamines (Crystal Meth). He reports that [...] at 06/21/2022 1124 Last data filed at 06/20/20222016 Gross per 24 hour Intake 970 ml [...] Value Date/Time PHART 7.380 12/16/2020 09:20 AM LAW7VBB 44.5 12/16/2020 09:20 AM PO2ART 94.4 12/16/2020 09:20 AM [id number] 25.7 12/16/2020 09:20 AM NBEA NOT REPORTED 12/16/2020 09:20 AM PBEA 0.3 12/16/2020 09:20 AM [id number] 97.1 12/16/2020 09:20 AM FIO2 28 12/16/2020 [...] to Nathaniel species without acute organ dysfunction ([facility]) 06/17/2022 Yes IVDU (intravenous drug user) 06/21/2022 Yes SIRS (systemic inflammatory response syndrome) ([facility]) 06/20/2022 Yes Acute septic pulmonary embolism without acute cor pulmonale ([facility]) 06/20/2022 Yes Elevated procalcitonin 06/20/2022 Yes CRP elevated 06/20/2022 Yes Septic embolism ([facility]) 06/17/2022 Yes Normocytic normochromic anemia 06/17/2022 Yes Subacute right-sided infective endocarditis 06/17/2022 Yes 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 Patient instructed to call outpatient pharmacy in AM to set up plan to get Diflucan. Patient agrees. Scrap Preparer attempted to contact outpatient pharmacy at 1800 but they were closed. Images from the original note were not included. [facility] Office: [phone] Mikie Rodriguez DO, Theo Lerma DO, Stuart Natarajan DO, Harpal Tran DO, Prashanth Sadler MD, Deana Raza MD, Florencia Canela MD, Tess Frod MD, Leodan Mak MD, Marimar Ren MD, Kyle Broussard DO, Juan Driver MD, Sophia Agustin DO, Jodi Bain MD, Palomo Drummond MD, Johann Rodriguez DO, Elvia Torres MD, Alberto Perez MD, Yuliana Saenz MD, Fabricio Syed DO, Radha Avila MD, Lyle Woods MD, Teresa Quintero, ROLL TABLE OPERATOR, Leslie Rao, ROLL TABLE OPERATOR, Ro Bernard, ROLL TABLE OPERATOR, Carter Charles, ROLL TABLE OPERATOR, Mckayla Abraham PA-C, Eli Fu, DNP, Keri Walker, ROLL TABLE OPERATOR, Sherrie Rea, ROLL TABLE OPERATOR, Deysi Pablo, ROLL TABLE OPERATOR, Shelli Menon, ROLL TABLE OPERATOR, Tika Hernandez, ROLL TABLE OPERATOR, Cathleen Moran, [employer]ISH[employer], Razia Figueroa, DNP, Madalyn Julien, ROLL TABLE OPERATOR, Amie Richardson, ROLL TABLE OPERATOR, Mary Meléndez, ROLL TABLE OPERATOR [facility] IN-PATIENT SERVICE [facility] Progress Note 06/20/2022 10:46 AM Name: Tip Ansari Acct: [id number] Room: [facility] [place] [place] [address] Day: 5 Admit Date: 06/15/2022 4:29 PM [...] pulmonary disease) (HCC), Depression, and Drug addiction ([facility]). Social History: reports that he has quit smoking. He has never used smokeless tobacco. He reports current drug use. Drugs: Cocaine, Opiates , Marijuana ([place]), and Methamphetamines (Crystal Meth). He reports that [...] Value Date/Time PHART 7.380 12/16/2020 09:20 AM [id number] 44.5 12/16/2020 09:20 AM PO2ART 94.4 12/16/2020 09:20 AM ZIL2QDE 25.7 12/16/2020 09:20 AM NBEA NOT REPORTED 12/16/2020 09:20 AM PBEA 0.3 12/16/2020 09:20 AM [id number] 97.1 12/16/2020 09:20 AM FIO2 28 12/16/2020 [...] to Nathaniel species without acute organ dysfunction ([facility]) 06/17/2022 Yes IVDU (intravenous drug user) 06/20/2022 Yes SIRS (systemic inflammatory response syndrome) ([facility]) 06/20/2022 Yes Acute septic pulmonary embolism without acute cor pulmonale ([facility]) 06/20/2022 Yes Elevated procalcitonin 06/20/2022 Yes CRP elevated 06/20/2022 Yes Septic embolism ([facility]) 06/17/2022 Yes Normocytic normochromic anemia 06/17/2022 Yes Subacute right-sided infective endocarditis 06/17/2022 Yes 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 [facility] Not Seen Note DATE: 06/20/2022 NAME: Tip Ansari : 1980 Patient not seen this date for Occupational Therapy due to: Patient Declined: Patient reports too tired and has not been able to get any sleep and is not doing therapy right now . Next Scheduled Treatment: Ck 06/21 Images from the original note were not included. [facility] - Infectious diseases evaluation Progress Note admission [...] or will be released Infection Control Recommendations [place] Precautions Contact Isolation Antimicrobial Stewardship Recommendations Simplification [...] worse and some LGF - sent to [facility] and seen now in ER - minimal [...] performed by Tip Grewal DPM at [facility] OR FOOT SURGERY Left 01/26/2022 INCISION AND [...] use: Yes Types: Cocaine, Opiates , Marijuana ([place]), Methamphetamines (Crystal Meth) Comment: last use 05/05 [...] Saenz MD PGY-1, Department of Internal Medicine [facility], [place], [place] I have discussed the care of [...] from the original note were not included. [facility] Office: [phone] Mikie Rodriguez DO, Theo Lerma DO, Stuart [...] Avila MD, Lyle Woods MD, Teresa Quintero, ROLL TABLE OPERATOR, Leslie Rao, PABLO, Ro Bernard, PABLO, Carter Charles, PABLO, Mckayla Abraham PA-C, Eli Fu, FÉLIX, Keri Walker, PABLO, Sherrie Rea, ROLL TABLE OPERATOR, Deysi Pablo, ROLL TABLE OPERATOR, Shelli Menon, ROLL TABLE OPERATOR, Tika Hernandez, ROLL TABLE OPERATOR, Cathleen Moran, SAIL FINISHER MACHINE, Razia Figueroa, FÉLIX, Madalyn Julien, PABLO, Amie Richardson, PABLO, Mary Meléndez, ROLL TABLE OPERATOR [facility] IN-PATIENT SERVICE [facility] Progress Note 06/19/2022 1:11 PM Name: Tip Ansari Acct: [id number] Room: [facility]0430-01 Day: 4 Admit Date: 06/15/2022 4:29 PM [...] drug use. Drugs: Cocaine, Opiates , Marijuana ([place]), and Methamphetamines (Crystal Meth). He reports that [...] RDW, PLT, MPV, SEDRATE, CRP, INR, DDIMER, ZO9RGHNE, LABABSO in the last 72 hours. Invalid [...] Value Date/Time PHART 7.380 12/16/2020 09:20 AM [id number] 44.5 12/16/2020 09:20 AM PO2ART 94.4 12/16/2020 09:20 AM BYF4IVK 25.7 12/16/2020 09:20 AM NBEA NOT REPORTED 12/16/2020 09:20 AM PBEA 0.3 12/16/2020 09:20 AM [id number] 97.1 12/16/2020 09:20 AM FIO2 28 12/16/2020 [...] to Nathaniel species without acute organ dysfunction ([facility]) 06/17/2022 Yes IV drug abuse ([facility]) 06/17/2022 Yes Septic embolism ([facility]) 06/17/2022 Yes Normocytic normochromic anemia 06/17/2022 Yes [...] - we need to figure out with where pt can go with IV abx - which will be coordinated with nurse @ [facility] - may need transfer to [facility] where IV abx can be administered Alberto Perez MD 06/19/2022 1:11 PM [facility] Pharmacokinetic Monitoring Service - Vancomycin Consulting [...] were not included. [facility] - Infectious diseases evaluation Progress Note admission [...] or will be released Infection Control Recommendations [place] Precautions Contact Isolation Antimicrobial Stewardship Recommendations Simplification [...] worse and some LGF - sent to [facility] and seen now in ER - minimal [...] CRP-16.4 ESR-35 Pro calcitonin -0.2 Micro: BC 8-negative BC 06/13-negative Urine culture 06/16 - negative [...] performed by Tip Grewal DPM at [facility] OR FOOT SURGERY Left 01/26/2022 INCISION AND [...] use: Yes Types: Cocaine, Opiates , Marijuana ([place]), Methamphetamines ([place]) Comment: last use 05/05 [...] Saenz MD PGY-1, Department of Internal Medicine [facility], [place], [place] I have discussed the care of the patient, including pertinent history and exam findings, with the resident. I have seen and examined the patient and the hall elements of all parts of the encounter have been performed by me. I agree with the assessment, plan and orders as documented by the resident. Marisol Andrea, Infectious Diseases [facility] Office: [phone] Mikie Rodriguez DO, Theo Lerma DO, Stuart Natarajan DO, Harpal Tran DO, Prashanth Sadler MD, Deana Raza MD, Florencia Canela MD, Tess Ford MD, Leodan Mak MD, Marimar Ren MD, Kyle Broussard DO, Juan Driver MD, Sophia Agustin DO, Jodi Bain MD, Palomo Drummond MD, Johann Rodriguez DO, Elvia Torres MD, Alberto Perez MD, Yuliana Saenz MD, Fabricio Syde DO, Radha Avila MD, Lyle Woods MD, Teresa Quintero, ROLL TABLE OPERATOR, Leslie Rao, ROLL TABLE OPERATOR, Ro Bernard, ROLL TABLE OPERATOR, Carter Charles, ROLL TABLE OPERATOR, Mckayla Abraham PA-C, Eli Fu, DNP, Keri Walker, ROLL TABLE OPERATOR, Sherrie Rea, ROLL TABLE OPERATOR, Deysi Pablo, [facility], Shelli Menon, ROLL TABLE OPERATOR, Tika Hernandez, [facility], Cathleen Moran, [facility], Razia Figueroa, DNP, Madalyn Julien, [facility], Amie Richardson, [facility], Mary Meléndez, [facility] Nighttime In-House Provider 06/19/2022 2:38 AM Name: Tip Ansari Acct: [id number] Room: [address] [place] [address] IP Day: 4 Admit Date: 06/15/2022 4:29 PM PCP: No primary care provider on file. Code Status: Full Code Called to the floor by staff [facility] of tachypnea. Assessment/Plan: [...] disease) (HCC), Depression, and Drug addiction (HCC). Vitals: BP 114/82 Pulse 77 Temp 98.4 [...] RESPIRATORY CHRISTOPHER MODERATE GROWTH 06/16/2022 12:39 PM @[email or web address]@ Radiology: XR CHEST (2 VW) Result Date: [...] from the original note were not included. [facility] Office: [phone] Mikie Rodriguez DO, Theo Lerma DO, Stuart [...] Avila MD, Lyle Woods MD, Teresa Quintero, PABLO, Leslie Rao CNP, Ro Bernard, PABLO, Carter Charles, PABLO, Mckayla Abraham PA-C, Eli Fu, FÉLIX, Keri Walker, PABLO, Sherrie Rea, PABLO, Deysi Pablo, PABLO, Shelli Menon, PABLO, Tika Hernandez, PABLO, Cathleen Moran, CHANTALE, Razia Figueroa, FÉLIX, Madalyn Julien, PABLO, Amie Richardson, PABLO, Mary Meléndez, ROLL TABLE OPERATOR [facility] IN-PATIENT SERVICE [facility] Progress Note 06/18/2022 2:40 PM Name: Tip Ansari Acct: [id number] Room: [address] [place] [address] Day: 3 Admit Date: 06/15/2022 4:29 PM [...] drug use. Drugs: Cocaine, Opiates , Marijuana ([place]), and Methamphetamines (Crystal Meth). He reports that [...] Net -2818.36 ml Labs: Hematology: Recent Labs 06/15/22 1737 06/15/22 1847 06/15/22 2328 06/16/22 0842 WBC 10.5 -- -- [...] -- -- -- 1.0 Chemistry: Recent Labs 06/15/22 1737 06/15/22 1847 06/16/22 0842 06/17/22 1016 NA 136 -- 139 [...] TROPHS <6 <6 -- -- Recent Labs 06/15/22 1847 06/16/22 0842 PROT 7.5 7.0 LABALBU 3.4* 3.1* AST 16 15 ALT 22 21 ALKPHOS 85 76 BILITOT 0.41 0.35 BILIDIR 0.15 -- ABG: Lab Results Component Value Date/Time PHART 7.380 12/16/2020 09:20 AM [id number] 44.5 12/16/2020 09:20 AM PO2ART 94.4 12/16/2020 09:20 AM ESF3LOG 25.7 12/16/2020 09:20 AM NBEA NOT REPORTED 12/16/2020 09:20 AM PBEA 0.3 12/16/2020 09:20 AM [id number] 97.1 12/16/2020 09:20 AM FIO2 28 12/16/2020 [...] PTOT Sophia Agustin DO 06/18/2022 2:40 PM [facility] Pharmacokinetic Monitoring Service - Vancomycin Tip [...] were not included. [facility] - Infectious diseases evaluation Progress Note admission [...] evidence of infectious seeding. Infection Control Recommendations [place] Precautions Contact Isolation Antimicrobial Stewardship Recommendations Simplification [...] worse and some LGF - sent to [facility] and seen now in ER - minimal [...] LFT normal CRP-16.4 ESR-35 proical-0.2 Micro: BC /-negative BC 8/3-negative Urine culture 06/16-negative Imaging: Transthoracic echo 06/16-positive [...] performed by Tip Grewal DPM at [facility] OR FOOT SURGERY Left 01/26/2022 INCISION AND [...] use: Yes Types: Cocaine, Opiates , Marijuana ([place]), Methamphetamines (C[place]) Comment: last use 05/05 [...] Saenz MD PGY-1, Department of Internal Medicine [facility], [place], [place] I have discussed the care of [...] from the original note were not included. [facility] Office: [phone] Mikie Rodriguez DO, Theo Lerma DO, Stuart [...] Avila MD, Lyle Woods MD, Teresa Quintero, PABLO, Leslie Rao, PABLO, Ro Bernard, ROLL TABLE OPERATOR, Carter Charles, PABLO, Mckayla Abraham PA-C, Eli Fu, FÉLIX, Keri Walker, PABLO, Sherrie Rea, PABLO, Deysi Pablo, PABLO, Shelli Menon, ROLL TABLE OPERATOR, Tika Hernandez, ROLL TABLE OPERATOR, Cathleen Moran, SAIL FINISHER MACHINE, Razia Figueroa, FÉLIX, Madalyn Julien, PABLO, Amie Richardson, PABLO, Mary Meléndez, PABLO [facility] IN-PATIENT SERVICE [facility] Progress Note 06/17/2022 3:17 PM Name: Tip Ansari Acct: [id number] Room: [facility]0430-[facility] Day: 2 Admit Date: 06/15/2022 4:29 PM [...] drug use. Drugs: Cocaine, Opiates , Marijuana ([place]), and Methamphetamines ([place]). He reports that [...] Net -1499.65 ml Labs: Hematology: Recent Labs 06/15/22 1737 06/15/22 1847 06/15/22 2328 06/16/22 0842 WBC 10.5 -- -- [...] -- -- -- 1.0 Chemistry: Recent Labs 06/15/22 1737 06/15/22 1847 06/16/22 0842 06/17/22 1016 NA 136 -- 139 [...] Value Date/Time PHART 7.380 12/16/2020 09:20 AM KFT4VKT 44.5 12/16/2020 09:20 AM PO2ART 94.4 12/16/2020 09:20 AM NDM9LSA 25.7 12/16/2020 09:20 AM NBEA NOT REPORTED 12/16/2020 09:20 AM PBEA 0.3 12/16/2020 09:20 AM [id number] 97.1 12/16/2020 09:20 AM FIO2 28 12/16/2020 [...] were not included. [facility] - Infectious diseases evaluation Progress Note admission [...] evidence of infectious seeding. Infection Control Recommendations [place] Precautions Contact Isolation Antimicrobial Stewardship Recommendations Simplification [...] worse and some LGF - sent to [facility] and seen now in ER - minimal [...] CRP-16.4 ESR-35 proical-0.2 Micro: BC 06/15 BC 06/13 Urine culture 06/16 Imaging: Transthoracic echo 06/16-positive [...] performed by Tip Grewal DPM at [facility] OR FOOT SURGERY Left 01/26/2022 INCISION AND [...] use: Yes Types: Cocaine, Opiates , Marijuana ([place]), Methamphetamines ([place]) Comment: last use 05/05 [...] Guerrero MD PGY-3, Department of Internal Medicine [facility], [place], [place] Final assessment and plan pending discussion [...] were not included. [facility] - Infectious diseases evaluation Progress Note admission [...] a site of seeding Infection Control Recommendations [place] Precautions Contact Isolation Antimicrobial Stewardship Recommendations Simplification [...] worse and some LGF - sent to [facility] and seen now in ER - minimal [...] CRP-16.4 ESR-35 proical-0.2 Micro: BC 06/15 BC 06/13 Urine culture 06/16 Imaging: Transthoracic echo 06/16-positive [...] performed by Tip Grewal DPM at [facility] OR FOOT SURGERY Left 01/26/2022 INCISION AND [...] use: Yes Types: Cocaine, Opiates , Marijuana ([place]), Methamphetamines ([place]) Comment: last use 05/05 [...] Saenz MD Office: [employer] / office [phone] ATTESTATION: I have discussed the case, including [...] Echo Lab documented in this encounter [facility] [employer] Phone: 05-08-2022 History of Present illness Narrative Patient given discharge instructions and follow up appointments and cam boot instructions. Patient verbalized understanding. Images from the original note were not included. [facility] Office: [phone] Mikie Rodriguez DO, Theo Lerma DO, Stuart [...] MD, Lyle Woods MD, Teresa Quintero CNP, Tika Hernandez CNP, Abdirahman Bella, PABLO, Leslie Rao, PABLO, Ro Bernard, PABLO, Carter Charles, PABLO, Mckayla Abraham PA-C, Eli Fu DNP, Keri Walker, PABLO, Sherrie Rea CNP, Deysi Pablo CNP, Cathleen Moran, CHANTALE, Razia Figueroa DNP, Madalyn Julien CNP, Shelli Menon CNP, Amie Richardson CNP IN-PATIENT SERVICE [facility] Progress Note 05/08/2022 10:06 AM Name: Tip Ansari Acct: [id number] Room: [address] [place] [address] Day: 2 Admit Date: 05/06/2022 4:40 AM [...] drug use. Drugs: Cocaine, Opiates , Marijuana ([place]), and Methamphetamines ([place]). He reports that [...] Net -1600 ml Labs: Hematology: Recent Labs 05/05/22 2017 05/06/22 1859 WBC 13.5* -- RBC 4.07* -- HGB 10.6* -- HCT 33.7* -- MCV 82.8 -- MCH 26.0 -- MCHC 31.5 -- RDW 15.7* -- PLT 196 -- MPV 8.9 -- SEDRATE -- 55* CRP -- 36.1* Chemistry: Recent Labs 05/05/22 2017 05/07/22 0708 NA 134* 137 K 3.6* 4.2 CL 100 105 CO2 25 21 GLUCOSE 111* 87 BUN 7 16 CREATININE 0.72 0.62* ANIONGAP 9 11 LABGLOM >60 >60 GFRAA >60 >60 CALCIUM 9.1 8.9 Recent Labs 05/05/222016 PROT 7.9 LABALBU 3.4* AST 15 ALT 17 ALKPHOS 82 BILITOT 0.53 ABG: Lab Results Component Value Date PHART 7.380 12/16/2020 [id number] 44.5 12/16/2020 PO2ART 94.4 12/16/2020 WBU5QHR 25.7 12/16/2020 NBEA NOT REPORTED 12/16/2020 PBEA 0.3 12/16/2020 [id number] 97.1 12/16/2020 FIO2 28 12/16/2020 Lab Results [...] IP CONSULT TO PODIATRY INPATIENT CONSULT TO PRACTICE COORDINATOR CHEMICAL DEPENDENCY REFERRAL FOR SOCIAL SERVICE CONSULT Alberto Perez MD 05/08/2022 10:06 AM Images from the original note were not included. [facility] Office: [phone] Mikie Rodriguez DO, Theo Lerma DO, Stuart Natarajan DO, Harpal Tran DO, Prashanth Sadler MD, Deana Raza MD, Florencia Canela MD, Tess Ford MD, uYliana Saenz MD, Leodan Mak MD, Marimar Ren MD, Kyle Broussard DO, Juan Drivre MD, Sophia Agustin DO, Jodi Bain MD, Palomo Drummond MD, Johann Rodriguez DO, Elvia Torres MD, Alberto Perez MD, Fabricio Syed DO, Radha Avila MD, Lyle Woods MD, Teresa Quintero CNP, Tika Hernandez CNP, Abdirahman Bella CNP, Leslie Rao CNP, Ro Bernard CNP, Carter Charles CNP, Mckayla Abraham PA-C, Eli Fu, DNP, Keri Walker, ROLL TABLE OPERATOR, Sherrie Rea, ROLL TABLE OPERATOR, Deysi Pablo, PABLO, Cathleen Moran, CHANTALE, Razia Figueroa, FÉLIX, Madalyn Julien, ROLL TABLE OPERATOR, Shelli Menon, ROLL TABLE OPERATOR, Amie Richardson, ROLL TABLE OPERATOR IN-PATIENT SERVICE [facility] Progress Note 05/07/2022 6:09 PM Name: Tip Ansari Acct: [id number] Room: 0240/0240-01 Day: 1 Admit Date: 05/06/2022 4:40 AM PCP: No primary care provider on file. Code Status: Full Code Subjective: C/C: Left ankle pain and swelling Interval History Status: Malaise Withdrawing Nausea Not eating well [employer] Data Base Updates: Waqeyrp36iy/dL IFA20jk/dL CREATININE0.62 Low mg/dL Calcium8.9mg/dL Mjbddz979pqyi/L Potassium4.2 Brief History: As documented in the [...] drug use. Drugs: Cocaine, Opiates , Marijuana ([place]), and Methamphetamines (C[place] Meth). He reports that [...] 55* CRP -- 36.1* Chemistry: Recent Labs 05/05/22 2017 05/07/22 0708 NA 134* 137 K 3.6* 4.2 CL 100 105 CO2 25 21 GLUCOSE 111* 87 BUN 7 16 CREATININE 0.72 0.62* ANIONGAP 9 11 LABGLOM >60 >60 GFRAA >60 >60 CALCIUM 9.1 8.9 Recent Labs 05/05/222016 PROT 7.9 LABALBU 3.4* AST 15 ALT 17 ALKPHOS 82 BILITOT 0.53 ABG: Lab Results Component Value Date PHART 7.380 12/16/2020 BGC6HCT 44.5 12/16/2020 PO2ART 94.4 12/16/2020 WTV1LQT 25.7 12/16/2020 NBEA NOT REPORTED 12/16/2020 PBEA 0.3 12/16/2020 [id number] 97.1 12/16/2020 FIO2 28 12/16/2020 Lab Results [...] IP CONSULT TO PODIATRY INPATIENT CONSULT TO PRACTICE COORDINATOR CHEMICAL DEPENDENCY REFERRAL FOR SOCIAL SERVICE CONSULT Theo Lerma DO 05/07/2022 6:09 PM Images from the original note were not included. [facility] - Progress Note Today's Date and Time: [...] with Dr Andrea for infection. Please call [phone] for appointment Medical Decision Making/Summary/Discussion:05/07/20 Infection Control Recommendations [place] Precautions Contact Isolation MRSA Antimicrobial Stewardship Recommendations [...] the police brought him in to the [facility] ER. At that location the patient complained of redness, swelling and pain of the left ankle. He was transferred to [place] because of concerns with recurrence of one [...] performed by Tip Grewal DPM at [facility] OR FOOT SURGERY Left 01/26/2022 INCISION AND [...] use: Yes Types: Cocaine, Opiates , Marijuana ([place]), Methamphetamines (Crystal Meth) Comment: last use 05/05 [...] Friends and Family: Not on file Attends Sabianist Services: Not on file Active Member of [...] excluded. No soft tissue gas. Medical Decision Cbsczb-Txkkitdv-Rquxe: Medical Decision Making-Other: Note: Labs, medications, radiologic studies were reviewed with personal review of films Large amounts of data were reviewed Discussed with nursing Staff, data recovery planner Infection Control and Prevention measures reviewed [...] is a 42 y.o. male seen at [facility] for left heel pain. Patient is well [...] at 12:34 PM documented in this encounter MAURA [employer] Phone: 05-07-2022 Hospital Discharge instructions Jason Sunshine [...] most local grocery stores, pharmacies, and chain enStage-stores. If you have any questions about your [...] Information Primary Emergency Contact: Alisa Ansari Address: [place] [address] Relation: Parent Secondary Emergency Contact: jaida greenberg Mobile Relation: Aunt/Uncle Past Surgical History: Past Surgical History: Procedure Laterality Date ABSCESS DRAINAGE Left 2019 arm APPENDECTOMY FINGER SURGERY Right 5 th finger tendon repair FOOT DEBRIDEMENT Left 01/26/2022 INCISION AND DRAINAGE, BONE LEFT CALCANEOUS performed by Tip Grewal DPM at [facility] OR FOOT SURGERY Left 01/26/2022 INCISION AND DRAINAGE, BONE LEFT CALCANEOUS (Left Foot) PICC INSERTION VASCULAR ACCESS TEAM 01/25/2022 TYMPANOSTOMY TUBE PLACEMENT Bilateral Immunization History: There is no immunization history on file for this patient. Active Problems: Patient Active Problem List Diagnosis Code Septic embolism ([facility]) I76 Heroin abuse ([facility]) F11.10 Hepatitis C virus infection without hepatic coma B19.20 MRSA bacteremia R78.81, B95.62 Acute respiratory failure with hypoxia ([facility]) J96.01 Moderate protein-calorie malnutrition ([facility]) E44.0 Bloody diarrhea R19.7 Normocytic normochromic anemia D64.9 Acute hypokalemia E87.6 Right-sided endocarditis due to Staphylococcus aureus I33.0, 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[facility]) M00.061 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 Moderate tricuspid regurgitation I07.1 Hyperkalemia E87.5 Endocarditis I38 Sepsis ([facility]) A41.9 Staphylococcal arthritis of left ankle ([facility]) M00.072 Hyperglycemia R73.9 Sepsis due to Nathaniel species without acute organ dysfunction ([facility]) B37.7, R65.20 Sinus tachycardia R00.0 Septic bursitis of Achilles M71.10 Acute osteomyelitis of left calcaneus ([facility]) M86.172 Opiate withdrawal ([facility]) F11.23 Acute hematogenous osteomyelitis of left ankle ([facility]) M86.072 Cellulitis of left lower extremity L03.116 IV drug abuse ([facility]) F19.10 Tenosynovitis of left ankle M65.9 Achilles tendinitis of left lower extremity M76.62 Isolation/Infection: Isolation Contact Patient Infection Status Infection Onset Added Last Indicated Last Indicated By Review Planned Expiration Resolved Resolved By MRSA 12/13/21 12/15/21 12/16/21 Culture, Anaerobic and Aerobic Blood & Joint Fluid 12/2021 Resolved COVID-19 (Rule Out) 01/24/22 01/24/2222 COVID-19, Rapid (Ordered) 01/24/22 Rule-Out Test Resulted [...] (73.8 kg) Mental Status: {IP PT MENTAL STATUS:13288} IV Access: { CARLINE IV ACCESS:265845559} Nursing Mobility/ADLs: Walking {CHP DME ADLs:969002494} Transfer {CHP DME ADLs:891612412} Bathing {CHP DME ADLs:612300692} Dressing {CHP DME ADLs:866911401} Toileting {CHP DME ADLs:081514060} Feeding {CHP DME ADLs:893296888} Mandrel Puller {CHP DME ADLs:915458845} Med Delivery { CARLINE MED Delivery:883242635} Wound Care Documentation and Therapy: Wound 01/20/22 Ankle Left;Posterior (Active) Number of days: 107 Incision 01/26/22 Tibial Distal;Left;Posterior (Active) Number of days: 101 Elimination: Continence: Bowel: {YES / NO:} Bladder: {YES / NO:} Urinary Catheter: {Urinary Catheter:283731678} Colostomy/Ileostomy/Ileal Conduit: {YES / NO:} Date of Last BM: Intake/Output Summary (Last 24 hours) at 05/08/2022 1118 Last data filed at 05/08/2022 0730 Gross per 24 hour Intake -- Output 1600 ml Net -1600 ml I/O last 3 completed shifts: In: 1076 [P.O.:620; I.V.:35; IV Piggyback:421] Out: 2400 [Urine:2400] Safety Concerns: { CARLINE Safety Concerns:298771730} Impairments/Disabilities: { CARLINE Impairments/Disabilities:22959348 3} Nutrition Therapy: Current Nutrition Therapy: { CARLINE Diet List:196161259} Routes of Feeding: {[facility] DME Other Feedings:602860738} Liquids: {[facility] liquid thickness:41587} Daily Fluid Restriction: {[facility] DME Yes amt example:366138706} Last Modified Barium Swallow with Video (Video Swallowing Test): {Done Not Done Date:} Treatments at the Time of Hospital Discharge: Respiratory Treatments: Oxygen Therapy: {Therapy; copd oxygen:00805} Ventilator: { CC Vent List:890262282} Rehab Therapies: {THERAPEUTIC INTERVENTION:6125836663} Weight Bearing Status/Restrictions: {[facility] Weight Bearin} Other Medical Equipment (for information only, NOT a DME order): {EQUIPMENT:363362435} Other Treatments: Patient's personal belongings (please select all that are sent with patient): {[facility] DME Belongings:656471058} RN SIGNATURE: {Esignature:690111840} CASE MANAGEMENT/SOCIAL WORK SECTION Inpatient Status Date: Readmission Risk Assessment Score: Readmission Risk Risk of Unplanned Readmission: 20 Discharging to Facility/ Agency Name: Address: Phone: Fax: Dialysis Facility (if applicable) Name: Address: Dialysis Schedule: Phone: Fax: Insurance Sales Assistant/Spring Tacker signature: {Esignature:261472463} PHYSICIAN SECTION Prognosis: {Prognosis:3245227238} Condition at Discharge: { Patient Condition:611945377} Rehab Potential (if transferring to Rehab): {Prognosis:2711231376} Recommended Labs or Other Treatments After Discharge: Partial weightbearing in CAM walker to left leg Physician Certification: I certify the above information and transfer of Tip Ansari is necessary for the continuing treatment of the diagnosis listed and that he requires {Admit to Appropriate Level of Care:27417} for {GREATER/LESS:485189614} 30 days. Update Admission H&P: {CHP DME Changes in HandP:756092827} PHYSICIAN SIGNATURE: {Esignature:246455964} Diane Cordova DPM - 05/08/2022 Partial weight bearing to left foot, Wear cam boot to left foot while out of bed. documented in this encounter [employer] Work Phone: 01-30-2022 History of Present illness Narrative Pt being discharged home with friend. Pt stated he called his engineering officer to inform them of discharge. Discharge instructions reviewed. Meds delivered via meds to bed. All belongings accounted for. All questions answered. Physical Therapy Facility/Department: [facility] 2 Daily Treatment Note NAME: Tip Ansari [...] heel/toe raises, and marches. Reps:15 AM-PAC Score AM-PAC Inpatient Mobility Raw Score : 21 (01/30/221348) AM-PAC Inpatient T-Scale Score : 50.25 (01/30/221348) Mobility [...] from the original note were not included. [facility] Office: [phone] Mikie Rodriguez DO, Theo Lerma DO, Stuart [...] Hernandez CNP, Mary Meléndez CNP, Cathleen Moran, CHANTALE, Abdirahman Bella, ROLL TABLE OPERATOR, Leslie Rao, ROLL TABLE OPERATOR, aMdalyn Julien, ROLL TABLE OPERATOR, Ro Bernard, ROLL TABLE OPERATOR, Carter Charles, PABLO, Mckayla Abraham PA-C, Eli Fu, FÉLIX, Razia Figueroa, FÉLIX, Keri Walker, ROLL TABLE OPERATOR, Sherrie Rea, ROLL TABLE OPERATOR, Moon Waldrop, ROLL TABLE OPERATOR, Ethel Soto, ROLL TABLE OPERATOR, Jazzy Javier, ROLL TABLE OPERATOR, Shelli Menon, ROLL TABLE OPERATOR [facility] IN-PATIENT SERVICE [facility] Progress Note 01/30/2022 1:39 PM Name: Tip Ansari Acct: [id number] Room: IP Day: 10 Admit Date: 01/20/2022 [...] year old gentleman who initially presented to [facility] ED from the local [place] [facility] [place] facility after he developed acute onset chills and shaking. He noted a wound to his left foot as well. Onset was abrupt, as he felt well earlier in the day. Patient was previously at [facility] in December for MRSA bacteremia with tricuspid [...] drug use. Drugs: Cocaine, Opiates , Marijuana ([place]), and Methamphetamines (Crystal Meth). He reports that [...] Results Component Value Date PHART 7.380 12/16/2020 VAV6ROA 44.5 12/16/2020 PO2ART 94.4 12/16/2020 DWP6RVD 25.7 12/16/2020 NBEA NOT REPORTED 12/16/2020 PBEA 0.3 12/16/2020 [id number] 97.1 12/16/2020 FIO2 28 12/16/2020 Lab Results [...] 01/28/2022 No Heroin abuse (HCC) 01/23/2022 Yes Hepatitis C virus infection without [...] 01/30/2022 1:39 PM Physician Progress Note PATIENT: COTY TIP BAIG #: [id number] : 1980 ADMIT DATE: 01/20/2022 10:23 PM DISCH DATE: RESPONDING PROVIDER #: TIP GREWAL DPThomas QUERY TEXT: Patient admitted with Candidal sepsis, [...] were not included. [facility] - Infectious diseases evaluation admission date 01/20/2022 reason for consultation: Sepsis Vanco allergy Impression : Current: Vancomycin reaction- Tachycardia fever red neck syndrome in [place] Pulmonary septic emboli, MRSA -residual lesions remain [...] red neck syndrome infection with fever in [place] and again here Label allergic to vanco [...] Chart reconsiled for DC Infection Control Recommendations [place] Precautions Contact Isolation Antimicrobial Stewardship Recommendations Simplification [...] Acid, Whole Blood3.3 High Sed Rate58 High Yyzvbbecyceed04.47 High Micro: BC One f two, 01/21 [...] performed by Tip Grewal DPM at [facility] OR FOOT SURGERY Left 01/26/2022 INCISION AND [...] use: Yes Types: Cocaine, Opiates , Marijuana ([place]), Methamphetamines ([place]) Comment: quit heroin Nov [...] Friends and Family: Not on file Attends Sabianist Services: Not on file Active Member of [...] Andrea MD Office: [facility] / office [phone] Images from the original note were not included. Physical Therapy Physical Therapy Cancel Note DATE: 01/29/2022 NAME: Tip Ansari : 1980 Patient not seen this date for Physical Therapy due to: Patient Declined: Stated he is getting around ok today, therapist educated pt on benefit of PT in hospital setting, PT will resume 01/30/22 Images from the original note were not included. [facility] Office: [phone] Mikie Rodriguez DO, Theo Lerma DO, Stuart [...] Avila MD, Alberto Perez MD, Teresa Quintero ROLL TABLE OPERATOR, Tika Hernandez, ROLL TABLE OPERATOR, Mary Meléndez, ROLL TABLE OPERATOR, Cathleen Moran, SAIL FINISHER MACHINE, Abdirahman Bella, ROLL TABLE OPERATOR, Leslie Rao, ROLL TABLE OPERATOR, Madalyn Julien, ROLL TABLE OPERATOR, Ro Bernard, ROLL TABLE OPERATOR, Carter Charles, ROLL TABLE OPERATOR, Mckayla Abraham PA-C, Eli Fu, DNP, Razia Figueroa, DNP, Keri Walker, ROLL TABLE OPERATOR, Sherrie Rea, ROLL TABLE OPERATOR, Moon Waldrop, ROLL TABLE OPERATOR, Ethel Soto, ROLL TABLE OPERATOR, Jazzy Javier, ROLL TABLE OPERATOR, Shelli Menon CNP [facility] IN-PATIENT SERVICE [facility] Progress Note 01/29/2022 1:33 PM Name: Tip Ansari Acct: [id number] Room: IP Day: 9 Admit Date: 01/20/2022 [...] year old gentleman who initially presented to [facility] ED from the local [place] after he developed acute onset chills and shaking. He noted a wound to his left foot as well. Onset was abrupt, as he felt well earlier in the day. Patient was previously at [facility] in December for MRSA bacteremia with tricuspid [...] drug use. Drugs: Cocaine, Opiates , Marijuana ([place]), and Methamphetamines (Crystal Meth). He reports that [...] -- -- 4.9* 1.6 -- Recent Labs 03/19/22 0622 01/28/22 0436 01/28/22 1648 01/29/22 0548 PROT 7.2 6.4 -- 6.2* LABALBU 3.1* 3.0* -- 2.6* AST 14 10 -- 23 ALT 27 21 -- 39 ALKPHOS 87 96 -- 88 BILITOT 0.30 <0.10* -- 0.38 BILIDIR 0.09 <0.08 -- 0.11 POCGLU -- -- 100 -- ABG: Lab Results Component Value Date PHART 7.380 12/16/2020 VCG5JBA 44.5 12/16/2020 PO2ART 94.4 12/16/2020 OFU3CEX 25.7 12/16/2020 NBEA NOT REPORTED 12/16/2020 PBEA 0.3 12/16/2020 C7LGHQAE 97.1 12/16/2020 FIO2 28 12/16/2020 Lab Results [...] loss Fluid Accumulation: 1 - Mild Extremities Transplant Immunologist Strength: Not Performed Estimated Daily Nutrient Needs: Energy (kcal): 25-28 kcal/kg = 6678-2279 kcals/day; Weight Used for Energy Requirements: [place] Protein (g): 1.2-1.5 gm/kg = 90-110 gm [...] kg) (12/13/21 bed scale per chart review) [place] Body Weight: 178 lbs; % [place] Body Weight 90 % BMI: 21.7 BMI [...] Status,Weight,Skin Discharge Planning: Continue current diet Contact: [phone] [facility] Cardiothoracic Surgery Progress Note 01/29/2022 11:03 [...] which are negative. Last positive BC was 01-21-22 Negative leukocytosis Echo- GIANFRANCO 1.1cm veg with mild to moderate TR Normal EF Labs: Labs reviewed today CBC: Recent Labs 01/27/22 0601/28/22 0436 01/29/22 0548 WBC 19.8* 7.8 10.0 HGB 10.1* 9.4* 9.4* HCT 31.8* 30.1* 29.8* MCV 86.6 90.1 88.7 PLT 201 178 131* BMP: Recent Labs 01/27/22 0622 01/28/22 0436 01/29/22 0548 NA 136 137 138 [...] were not included. [facility] - Infectious diseases evaluation admission date 01/20/2022 reason for consultation: Sepsis Vanco allergy Impression : Current: Vancomycin reaction- Tachycardia fever red neck syndrome in [place] Pulmonary septic emboli, MRSA -residual lesions remain [...] red neck syndrome infection with fever in [place] and again here Label allergic to vanco [...] condition carries increased mortality Infection Control Recommendations [place] Precautions Contact Isolation Antimicrobial Stewardship Recommendations Simplification [...] health care facility Recently seen 12/2021 by ar STJered for MRSA bacteremia, right knee septic [...] Acid, Whole Blood3.3 High Sed Rate58 High Ntbknkoobbuyc79.47 High Micro: BC One f two, 01/21 [...] use: Yes Types: Cocaine, Opiates , Marijuana ([place]), Methamphetamines ([place]) Comment: quit heroin Nov [...] Friends and Family: Not on file Attends Sabianist Services: Not on file Active Member of [...] Andrea MD Office: [facility] / office [phone] Images from the original note were not included. [facility] - Infectious diseases evaluation Progress Note admission [...] reaction- Tachycardia, fever, red neck syndrome in [place] s/p 2 doses of Vancomycin. Likely serotonin [...] foot I&D on 01/26/22 Infection Control Recommendations [place] Precautions Contact Isolation Antimicrobial Stewardship Recommendations Simplification [...] Recently seen 12/13/[address] Andrea at [facility] for MRSA septicemia, right knee septic arthritis, [...] Whole Blood: 3.3 High Sed Rate58 High Nwjvgpfoetroy11.47 High Micro: Blood: 12-13-21: MRSA x 2 [...] use: Yes Types: Cocaine, Opiates , Marijuana ([place]), Methamphetamines ([place]) Comment: quit heroin Nov [...] Friends and Family: Not on file Attends Sabianist Services: Not on file Active Member of [...] following labs: CBC with Differential: Recent Labs 01/27/2262101/28/22435 WBC 19.8* 7.8 HGB 10.1* 9.4* HCT 31.8* 30.1* PLT 201 178 LYMPHOPCT 7* 18* MONOPCT 4 6 BMP: Recent Labs 01/27/2262101/28/22 043 NA 136 137 K 4.4 3.5* CL 101 103 CO2 24 20 BUN 25* 29* CREATININE 0.93 0.98 MG -- 1.7 Hepatic Function Panel: Recent Labs 01/27/2262101/28/22 0436 PROT 7.2 6.4 LABALBU 3.1* 3.0* BILIDIR [...] Contains abnormal data Culture, Blood 1 Order: [id number] Status: Final result Visible to patient: No (not released) Next appt: None Specimen Information: Blood 0 Result Notes Component 12/13/21 403 Specimen Description .BLOOD Special Requests RT AC [...] Martinez AT 1440 ON 12/14/2021 [facility] Methicillin resistant staphylococcus aureus (4) Antibiotic [...] by contextual diversion. Chasity Matos APRN - [facility] Office: [facility] / office [phone] Images from the original note were not included. [facility] Office: [phone] Mikie Rodriguez DO, Theo Lerma DO, Stuart [...] Hernandez CNP, Mary Meléndez CNP, Cathleen Moran, SAIL FINISHER MACHINE, Abdirahman Bella, ROLL TABLE OPERATOR, Leslie Rao, ROLL TABLE OPERATOR, Madalyn Julien, ROLL TABLE OPERATOR, Ro Bernard, ROLL TABLE OPERATOR, Carter Charles, ROLL TABLE OPERATOR, Mckayla Abraham PA-C, Eli Fu DNP, Razia Figueroa DNP, Keri Walker, ROLL TABLE OPERATOR, Sherrie Rea, ROLL TABLE OPERATOR, Moon Waldrop ROLL TABLE OPERATOR, Ethel Soto, ROLL TABLE OPERATOR, Jazzy Javier ROLL TABLE OPERATOR, Shelli Menon ROLL TABLE OPERATOR [facility] IN-PATIENT SERVICE [facility] Progress Note 01/28/2022 8:29 AM Name: Tip Ansari Acct: [id number] Room: Day: 8 Admit Date: 01/20/2022 10:23 PM [...] year old gentleman who initially presented to [facility] ED from the local [place] after he developed acute onset chills and shaking. He noted a wound to his left foot as well. Onset was abrupt, as he felt well earlier in the day. Patient was previously at [facility] in December for MRSA bacteremia with tricuspid [...] drug use. Drugs: Cocaine, Opiates , Marijuana ([place]), and Methamphetamines ([place]). He reports that [...] Net 412.85 ml Labs: Hematology: Recent Labs 01/26/2245701/27/2262101/28/22435 WBC 8.2 19.8* 7.8 RBC 3.85* 3.67* 3.34* HGB 10.7* 10.1* 9.4* HCT 33.3* 31.8* 30.1* MCV 86.5 86.6 90.1 MCH 27.8 27.5 28.1 MCHC 32.1 31.8 31.2 RDW 16.6* 16.1* 16.6* PLT 183 201 178 MPV 8.7 9.2 8.8 Chemistry: Recent Labs 01/26/2245701/27/2262101/28/22435 NA 137 136 137 K 4.2 4.4 3.5* CL 104 101 103 CO2 21 24 20 GLUCOSE 123* 187* 153* BUN 26* 25* 29* CREATININE 0.95 0.93 0.98 MG -- -- 1.7 ANIONGAP 12 11 14 LABGLOM >60 >60 >60 GFRAA >60 >60 >60 CALCIUM 9.5 9.1 8.9 CKTOTAL 10* 11* 8* Recent Labs 01/26/2245701/27/2262101/28/22435 PROT 8.0 7.2 6.4 LABALBU 3.1* 3.1* 3.0* AST 19 14 10 ALT 30 27 21 ALKPHOS 99 87 96 BILITOT 0.21* 0.30 <0.10* BILIDIR <0.08 0.09 <0.08 ABG: Lab Results Component Value Date PHART 7.380 12/16/2020 NRG7RFH 44.5 12/16/2020 PO2ART 94.4 12/16/2020 IDJ9RXH 25.7 12/16/2020 NBEA NOT REPORTED 12/16/2020 PBEA 0.3 12/16/2020 W2JTXNAF 97.1 12/16/2020 FIO2 28 12/16/2020 Lab Results [...] is a 42 y.o. male seen at [facility] for possible septic arthritis of the left [...] sodium chloride Stopped (01/25/22 1841) dextrose PRN Meds:ketorolac, sodium chloride flush, sodium [...] [I.V.:300] Out: 600 [Urine:600] CBC: Recent Labs 01/25/2254501/26/2245701/27/22621 WBC 9.0 8.2 19.8* HGB 10.6* 10.7* 10.1* HCT 34.5* 33.3* 31.8* PLT 189 183 201 BMP: Recent Labs 01/25/2246 01/26/2245701/27/22621 NA 139 137 136 K 4.4 4.2 4.4 CL 105 104 101 CO2 20 21 24 BUN 19 26* 25* CREATININE 0.82 0.95 0.93 GLUCOSE 109* 123* 187* CALCIUM 9.0 9.5 9.1 Coags: Recent Labs 01/25/2246 01/26/2245701/27/22621 PROT 7.5 8.0 7.2 Lab Results [...] not hesitate to contact the podiatry resident industrial relations specialist with any other questions or concerns. Follow-up with Dr. Grewal within [address] Aissatou White DPM Podiatric Medicine & Surgery 01/27/2022 at 12:05 PM Images from the original note were not included. [facility] Office: [phone] Mikie Rodriguez DO, Theo Lerma DO, Stuart [...] Avila MD, Alberto Perez MD, Teresa Quintero, PABLO, Tika Hernandez, PABLO, Mary Meléndez, PABLO, Cathleen Moran, CHANTALE, Abdirahman Bella, PABLO, Leslie Rao, PABLO, Madalyn Julien, PABLO, Ro Bernard, PABLO, Carter Charles, PABLO, Mckayla Abraham PA-C, Eli Fu, FÉLIX, Razia Figueroa, FÉLIX, Keri Walker, PABLO, Sherrie Rea, PABLO, Moon Waldrop, PABLO, Ethel Soto, PABLO, Jazzy Javier, PABLO, Shelli Menon, PABLO [facility] IN-PATIENT SERVICE [facility] Progress Note 01/27/2022 11:00 AM Name: Tip Ansari Acct: [id number] Room: IP Day: 7 Admit Date: 01/20/2022 [...] year old gentleman who initially presented to [facility] ED from the local [place] facility after he developed acute onset chills and shaking. He noted a wound to his left foot as well. Onset was abrupt, as he felt well earlier in the day. Patient was previously at [facility] in December for MRSA bacteremia with tricuspid [...] Continuous Infusions: sodium chloride sodium chloride Stopped (01/25/221840) dextrose PRN Meds: sodium chloride flush, sodium [...] drug use. Drugs: Cocaine, Opiates , Marijuana ([place]), and Methamphetamines ([place]). He reports that [...] Recent Labs 01/25/22 0546 01/26/22 0458 01/27/22 06 WBC 9.0 8.2 19.8* RBC 3.85* 3.85* 3.67* HGB 10.6* 10.7* 10.1* HCT 34.5* 33.3* 31.8* MCV 89.6 86.5 86.6 MCH 27.5 27.8 27.5 MCHC 30.7 32.1 31.8 RDW 16.6* 16.6* 16.1* PLT 189 183 201 MPV 9.2 8.7 9.2 Chemistry: Recent Labs 01/25/22 0546 01/26/22 0458 01/27/22 06 NA 139 137 136 K 4.4 4.2 4.4 CL 105 104 101 CO2 20 21 24 GLUCOSE 109* 123* 187* BUN 19 26* 25* CREATININE 0.82 0.95 0.93 ANIONGAP 14 12 11 LABGLOM >60 >60 >60 GFRAA >60 >60 >60 CALCIUM 9.0 9.5 9.1 CKTOTAL 9* 10* 11* Recent Labs 01/25/22 0546 01/26/22 0458 01/27/22 0622 PROT 7.5 8.0 7.2 LABALBU 3.0* 3.1* 3.1* AST 21 19 14 ALT 31 30 27 ALKPHOS 99 99 87 BILITOT 0.20* 0.21* 0.30 BILIDIR <0.08 <0.08 0.09 ABG: Lab Results Component Value Date PHART 7.380 12/16/2020 APX7IDA 44.5 12/16/2020 PO2ART 94.4 12/16/2020 MLO5ARK 25.7 12/16/2020 NBEA NOT REPORTED 12/16/2020 PBEA 0.3 12/16/2020 [id number] 97.1 12/16/2020 FIO2 28 12/16/2020 Lab Results [...] Yes Acute osteomyelitis of left calcaneus (HCC) 01/26/2022 Yes Plan: 1. Sepsis likely due [...] were not included. [facility] - Infectious diseases evaluation Progress Note admission date 01/20/2022 reason for consultation: Sepsis Vanco allergy Impression : Current: Left calcaneal Osteomyelitis Partially torn left Achilles tendon with Achilles tendonitis Septic bursitis of left heel. s/p I&D 01/26/22 Currently on doxycyline because of allergic reaction to Vancomycin Vancomycin reaction- Tachycardia, fever, red neck syndrome in [place] s/p 2 doses of Vancomycin. Likely serotonin [...] foot I&D on 01/26/22 Infection Control Recommendations [place] Precautions Contact Isolation Antimicrobial Stewardship Recommendations Simplification [...] Recently seen 12/13/[address] Andrea at [facility] for MRSA septicemia, right knee septic arthritis, [...] Whole Blood: 3.3 High Sed Rate58 High Jbwpwgpqfnkgh32.47 High Micro: Blood: 12-13-21: MRSA x 2 [...] use: Yes Types: Cocaine, Opiates , Marijuana ([place]), Methamphetamines (Crystal Meth) Comment: quit heroin Nov [...] Friends and Family: Not on file Attends Sabianist Services: Not on file Active Member of [...] following labs: CBC with Differential: Recent Labs 01/26/228 01/27/22 06 WBC 8.2 19.8* HGB 10.7* 10.1* HCT 33.3* 31.8* PLT 183 201 LYMPHOPCT 20* 7* MONOPCT 14* 4 BMP: Recent Labs 01/26/22 0458 01/27/22 0622 NA 137 136 K 4.2 4.4 CL 104 101 CO2 21 24 BUN 26* 25* CREATININE 0.95 0.93 Hepatic Function Panel: Recent Labs 01/26/22 0458 01/27/22 0622 PROT 8.0 7.2 LABALBU 3.1* 3.1* BILIDIR [...] Contains abnormal data Culture, Blood 1 Order: [id number] Status: Final result Visible to patient: No (not released) Next appt: None Specimen Information: Blood 0 Result Notes Component 2/2/22 2156 Specimen Description .BLOOD Special Requests RT AC [...] back by:DIANE Martinez AT 1440 ON 12/14/2021 [facility] Susceptibility Methicillin resistant staphylococcus aureus (4) Antibiotic [...] be extrapolated by contextual diversion. Chasity Matos, BATCHER OPERATOR - ROLL TABLE OPERATOR ATTESTATION: I have discussed the case, including pertinent history and exam findings with the BATCHER OPERATOR. I have evaluated the History, physical findings and pictures of the patient and the hall elements of the encounter have been performed by me. I have reviewed the laboratory data, other diagnostic studies and discussed them with the BATCHER OPERATOR. I have updated the medical record where necessary. I agree with the assessment, plan and orders as documented by the BATCHER OPERATOR. Tariq Dumont MD. Office: Perfect serve / office [phone] Images from the original note were not included. [facility] - Infectious diseases evaluation admission date 01/20/2022 reason for consultation: Sepsis Vanco allergy Impression : Current: Vancomycin reaction- Tachycardia fever red neck syndrome in [place] Pulmonary septic emboli, MRSA -residual lesions remain [...] red neck syndrome infection with fever in [place] and again here Label allergic to vanco [...] condition carries increased mortality Infection Control Recommendations [place] Precautions Contact Isolation Antimicrobial Stewardship Recommendations Simplification [...] health care facility Recently seen 12/2021 by ar [facility] for MRSA bacteremia, right knee septic [...] BP Temp Temp src Pulse Resp SpO2 03/18/22 2048 115/79 98.1 F (36.7 C) Oral [...] Acid, Whole Blood3.3 High Sed Rate58 High Jsfbgcbrqoqxj20.47 High Micro: BC One f two, 01/21 [...] use: Yes Types: Cocaine, Opiates , Marijuana ([place]), Methamphetamines (Crystal Meth) Comment: quit heroin Nov [...] Friends and Family: Not on file Attends Sabianist Services: Not on file Active Member of [...] CBC with Differential: Recent Labs 01/25/22 0546 01/26/22457 WBC 9.0 8.2 HGB 10.6* 10.7* HCT 34.5* 33.3* PLT 189 183 LYMPHOPCT 17* 20* MONOPCT 11 14* BMP: Recent Labs 01/25/22 0546 01/26/22457 NA 139 137 K 4.4 4.2 CL 105 104 CO2 20 21 BUN 19 26* CREATININE 0.82 0.95 Hepatic Function Panel: Recent Labs 01/25/2246 01/26/22457 PROT 7.5 8.0 LABALBU 3.0* 3.1* BILIDIR [...] Andrea MD Office: Perfect serve / office [phone] Images from the original note were not included. [facility] Office: [phone] Mikie Rodriguez DO, Theo Lerma DO, Stuart Natarajan DO, Harpal Tran, DO, Prashanth Sadler MD, Deana Raza MD, Florencia Canela MD, Tess Ford MD, Yuliana Saenz MD, Leodan Mak MD, Marimar Ren MD, Fabricio Syed DO, Kyle Broussard, DO, Juan Driver MD, Sophia Agustin, DO, Lyle Woods MD, Jodi Bain MD, Palomo Drummond MD, Johann Rodriguez, DO, Radha Avila MD, Alberto Perez MD, Teresa Quintero, ROLL TABLE OPERATOR, Tika Hernandez, ROLL TABLE OPERATOR, Mary Meléndez, ROLL TABLE OPERATOR, Cathleen Moran, SAIL FINISHER MACHINE, Abdirahman Bella, ROLL TABLE OPERATOR, Leslie Rao, ROLL TABLE OPERATOR, Madalyn Julien, ROLL TABLE OPERATOR, Ro Bernard, ROLL TABLE OPERATOR, Carter Charles, ROLL TABLE OPERATOR, KO HunterC, Eli Fu, DNP, Razia Figueroa, DNP, Keri Walker, ROLL TABLE OPERATOR, Sherrie Rea, ROLL TABLE OPERATOR, Moon Waldrop, ROLL TABLE OPERATOR, Ethel Soto, ROLL TABLE OPERATOR, Jazzy Javier, ROLL TABLE OPERATOR, Shelli Menon, ROLL TABLE OPERATOR [facility] IN-PATIENT SERVICE [facility] Progress Note 01/26/2022 2:36 PM Name: Tip Ansari Acct: [id number] Room: [facility] Day: 6 Admit Date: 01/20/2022 10:23 PM [...] year old gentleman who initially presented to [facility] ED from the local [place] facility after he developed acute onset chills and shaking. He noted a wound to his left foot as well. Onset was abrupt, as he felt well earlier in the day. Patient was previously at [facility] in December for MRSA bacteremia with tricuspid [...] lactated ringers [JAN Hold] sodium chloride Stopped (01/25/221840) [JAN Hold] dextrose PRN Meds: lidocaine PF, [...] drug use. Drugs: Cocaine, Opiates , Marijuana ([place]), and Methamphetamines (Crystal Meth). He reports that [...] Max:98.6 F (37 C) Recent Labs 01/23/22211601/24/22 0806 POCGLU 122* 97 I/O (24Hr): Intake/Output Summary (Last 24 hours) at 01/26/2022 1436 Last data filed at 01/25/2022 1843 Gross per 24 hour Intake 72.36 ml Output 400 ml Net -327.64 ml Labs: Hematology: Recent Labs 01/25/22 0546 01/26/22 0458 WBC 9.0 8.2 RBC 3.85* 3.85* HGB [...] 9.5 CKTOTAL 9* 10* Recent Labs 01/23/22211601/24/22 0806 01/25/2246 01/26/228 PROT -- -- 7.5 8.0 LABALBU -- -- 3.0* 3.1* AST -- -- 21 19 ALT -- -- 31 30 ALKPHOS -- -- 99 99 BILITOT -- -- 0.20* 0.21* BILIDIR -- -- <0.08 <0.08 POCGLU 122* 97 -- -- ABG: Lab Results Component Value Date PHART 7.380 12/16/2020 [id number] 44.5 12/16/2020 PO2ART 94.4 12/16/2020 [id number] 25.7 12/16/2020 NBEA NOT REPORTED 12/16/2020 PBEA 0.3 12/16/2020 [id number] 97.1 12/16/2020 FIO2 28 12/16/2020 Lab Results [...] is a 42 y.o. male seen at [facility] for possible septic arthritis of the left [...] 33.3* PLT 189 183 BMP: Recent Labs 01/25/22 0546 01/26/22 0458 NA 139 137 K 4.4 4.2 CL 105 104 CO2 20 21 BUN 19 26* CREATININE 0.82 0.95 GLUCOSE 109* 123* CALCIUM 9.0 9.5 Coags: Recent Labs 01/25/22 0546 01/26/22 0458 PROT 7.5 8.0 Lab Results Component Value [...] IV. Nurse stopped iv 21:58 Nurse notified industrial relations specialist CHIN STRAP CUTTER Yoly Quintero. Ordered benadryl and morphine. Notified [...] were not included. [facility] - Infectious diseases evaluation admission date 01/20/2022 reason for consultation: Sepsis Vanco allergy Impression : Current: Vancomycin reaction- Tachycardia fever red neck syndrome in [place] Pulmonary septic emboli, MRSA -cavitations improved, nodules [...] red neck syndrome infection with fever in [place] and again here Label allergic to vanco [...] condition carries increased mortality Infection Control Recommendations [place] Precautions Contact Isolation Antimicrobial Stewardship Recommendations Simplification [...] Acid, Whole Blood3.3 High Sed Rate58 High Zwjyzmiojlwll70.47 High Micro: BC One f two, 01/21 [...] use: Yes Types: Cocaine, Opiates , Marijuana ([place]), Methamphetamines (Crystal Meth) Comment: quit heroin Nov [...] Friends and Family: Not on file Attends Sabianist Services: Not on file Active Member of [...] Andrea MD Office: Perfect serve / office [phone] Comprehensive Nutrition Assessment Type and Reason for [...] muscle mass loss Fluid Accumulation: (Moderate) Extremities Transplant Immunologist Strength: Not Performed Estimated Daily Nutrient Needs: [...] kg) (12/13/21 bed scale per chart review) [place] Body Weight: 178 lbs; % [place] Body Weight 90 % BMI: 21.7 BMI [...] Discharge Planning: Too soon to determine Contact: [phone] Images from the original note were not included. [facility] Office: [phone] Mikie Rodriguez DO, Theo Lerma DO, Stuart [...] Avila MD, Alberto Perez MD, Teresa Quintero, ROLL TABLE OPERATOR, Tika Hernandez, ROLL TABLE OPERATOR, Mary Meléndez, ROLL TABLE OPERATOR, Cathleen Moran, SAIL FINISHER MACHINE, Abdirahman Bella, ROLL TABLE OPERATOR, Leslie Rao, ROLL TABLE OPERATOR, Madalyn Julien, ROLL TABLE OPERATOR, Ro Bernard, ROLL TABLE OPERATOR, Carter Charles, ROLL TABLE OPERATOR, Mckayla Abraham PA-C, Eli Fu, DNP, Razia Figueroa, DNP, Keri Walker, ROLL TABLE OPERATOR, Sherrie Rea, ROLL TABLE OPERATOR, Moon Waldrop, ROLL TABLE OPERATOR, Ethel Soto, ROLL TABLE OPERATOR, Jazzy Javier, ROLL TABLE OPERATOR, Shelli Menon, ROLL TABLE OPERATOR [facility] IN-PATIENT SERVICE [facility] Progress Note 01/25/2022 12:15 PM Name: Tip Ansari Acct: [id number] Room: IP Day: 5 Admit Date: 01/20/2022 [...] year old gentleman who initially presented to [facility] ED from the local [place] after he developed acute onset chills and shaking. He noted a wound to his left foot as well. Onset was abrupt, as he felt well earlier in the day. Patient was previously at [facility] in December for MRSA bacteremia with tricuspid [...] drug use. Drugs: Cocaine, Opiates , Marijuana ([place]), and Methamphetamines (Crystal Meth). He reports that [...] C) Recent Labs 01/23/22 0928 01/23/22 1216 01/23/227 01/24/22 0806 POCGLU 141* 99 122* 97 [...] Results Component Value Date PHART 7.380 12/16/2020 [id number] 44.5 12/16/2020 PO2ART 94.4 12/16/2020 [id number] 25.7 12/16/2020 NBEA NOT REPORTED 12/16/2020 PBEA 0.3 12/16/2020 [id number] 97.1 12/16/2020 FIO2 28 12/16/2020 Lab Results [...] to vancomycin - red man syndrome in [place] ED Left ankle soft tissue infection - [...] from the original note were not included. [employer] Specialist Progress Note Date: 01/25/2022 Patient name: Tip [...] WC insulin lispro 0-3 Units SubCUTAneous Nightly sodium chloride flush 5-40 mL IntraVENous 2 times per day enoxaparin 40 mg SubCUTAneous Daily Continuous Infusions: dextrose sodium chloride 25 mL (01/24/224) CBC: Recent Labs 01/23/22 0911 01/25/22 0546 [...] eccentric regurgitation is identified. Cardiovascular Diseases Fellow [facility] Objective: Vitals: BP 115/81 Pulse [...] course per ID 3. Keep k>4, Mg>2 [employer] Specialist [facility]. [phone] Images from the original note were not included. Progress Note Podiatric Medicine and Surgery Subjective CC: Ankle pain, left Patient seen and examined at bedside. OR for I&D in the PM Patient is NPO HPI : Tip Ansari is a 42 y.o. male seen at [facility] for possible septic arthritis of the left [...] Infusions: dextrose sodium chloride 25 mL (01/24/22 6640) PRN Meds:traZODone, glucose, dextrose, glucagon (rDNA), dextrose, [...] % I/O last 3 completed shifts: In: 2141 [P.O.:1080; I.V.:1061] Out: 1150 [Urine:1150] CBC: Recent Labs 01/23/22 0901/25/22 0546 WBC 5.7 9.0 HGB 11.3* 10.6* HCT 34.1* 34.5* PLT 121* 189 BMP: Recent Labs 01/23/2291001/25/22 0546 NA 132* 139 K 4.2 4.4 CL 98 105 CO2 21 20 BUN 14 19 CREATININE 0.68* 0.82 GLUCOSE 148* 109* CALCIUM 8.9 9.0 Coags: Recent Labs 01/23/2291001/25/22 0546 PROT 7.4 7.5 Lab Results Component [...] Intermed messaged regarding IV situation. Darnell Hernandez CHIN STRAP CUTTER placed order for PICC Line. Jacob JuanDough Mixer notified and stated he will notify PICC [...] IV infiltrated when trying to start antibiotic. Jacob Iqbal Dr. For [facility] messaged and arrived trying to start new IV at bedside. perfectserved [facility] primary team regarding multiple attempts tried to obtain IV access along with using ultrasound for IV...unsuccessful. Asked if we could try the house doctor industrial relations specialist to place a line. Wilma Quintero, LUCIANO with [facility] said that was ok to do. [phone]-perfectserved jacob maciel for [facility] perfecto, Dr. Main Huitron. Came to the floor and spoke to pt. Regarding place a line or trying another peripheral IV with the ultrasound machine again but pt. Refused at this time. Dr. Huitron explained to promotion writer and pt. If he changes his mind to let him know and he will come back again this evening to try. Pt. Agreeable. Pt. Has a #20 Left AC, dressing has been changed. Will continue to use the one line available to instill his 3 separate antibiotics this evening. Dough Mixer, Drake stated he will try and contact the PICC team in the morning to get pt. Added to list for possible midline or PICC line. Images from the original note were not included. [facility] - Infectious diseases evaluation admission date 01/20/2022 reason for consultation: Sepsis Vanco allergy Impression : Current: Vancomycin reaction- Tachycardia fever red neck syndrome in [place] Pulmonary septic emboli, MRSA -cavitations improved, nodules [...] red neck syndrome infection with fever in [place] and again here Label allergic to vanco [...] eval for TV replacement Infection Control Recommendations [place] Precautions Contact Isolation Antimicrobial Stewardship Recommendations Simplification [...] health care facility Recently seen 12/2021 by ar [facility] for MRSA bacteremia, right knee septic [...] Acid, Whole Blood3.3 High Sed Rate58 High Iubnazzpoktqn19.47 High Micro: BC One f two, 01/21 [...] use: Yes Types: Cocaine, Opiates , Marijuana ([place]), Methamphetamines (C[place]) Comment: quit heroin Nov [...] Friends and Family: Not on file Attends Sabianist Services: Not on file Active Member of [...] Andrea MD Office: Perfect serve / office [phone] Images from the original note were not included. [facility] Office: [phone] Mikie Rodriguez DO, Theo Lerma DO, Stuart [...] Hernandez CNP, Mary Meléndez CNP, Cathleen Moran, CHANTALE, Abdirahman Bella, ROLL TABLE OPERATOR, Leslie Rao, ROLL TABLE OPERATOR, Madalyn Julien, ROLL TABLE OPERATOR, Ro Bernard, ROLL TABLE OPERATOR, Cartre Charles, PABLO, Mckayla Abraham PA-C, Eli Fu, FÉLIX, Razia Figueroa, FÉLIX, Keri Walker, PABLO, Sherrie Rea, ROLL TABLE OPERATOR, Moon Waldrop, ROLL TABLE OPERATOR, Ethel Soto, ROLL TABLE OPERATOR, Jazzy Javier, ROLL TABLE OPERATOR, Shelli Menon, ROLL TABLE OPERATOR [facility] IN-PATIENT SERVICE [facility] Progress Note 01/24/2022 2:24 PM Name: Tip Ansari Acct: [id number] Room: IP Day: 4 Admit Date: 01/20/2022 10:23 PM [...] year old gentleman who initially presented to [facility] ED from the local [place] after he developed acute onset chills and shaking. He noted a wound to his left foot as well. Onset was abrupt, as he felt well earlier in the day. Patient was previously at [facility] in December for MRSA bacteremia with tricuspid [...] Daily Continuous Infusions: dextrose sodium chloride Stopped (01/24/226) PRN Meds: traZODone, glucose, dextrose, glucagon (rDNA), [...] drug use. Drugs: Cocaine, Opiates , Marijuana ([place]), and Methamphetamines (C[place]). He reports that [...] C) Recent Labs 01/23/22 0928 01/23/22 1216 01/23/22211601/24/22 0806 POCGLU 141* 99 122* 97 I/O (24Hr): Intake/Output Summary (Last 24 hours) at 01/24/2022 1424 Last data filed at 01/24/2022 0615 Gross per 24 hour Intake 871 ml Output 550 ml Net 321 ml Labs: Hematology: Recent Labs 01/23/22 09 WBC 5.7 RBC 4.05* HGB 11.3* HCT 34.1* MCV 84.2 MCH 27.9 MCHC 33.1 RDW 16.1* PLT 121* MPV 9.8 Chemistry: Recent Labs 01/23/22 09 NA 132* K 4.2 CL 98 CO2 21 GLUCOSE 148* BUN 14 CREATININE 0.68* ANIONGAP 13 LABGLOM >60 GFRAA >60 CALCIUM 8.9 PHOS 2.7 Recent Labs 01/21/22 1427 01/21/22 2146 01/22/22 1238 01/22/22 1634 01/23/22 0911 01/23/22 0928 01/23/22121501/23/22211601/24/22 0806 PROT -- -- -- -- 7.4 [...] Results Component Value Date PHART 7.380 12/16/2020 [id number] 44.5 12/16/2020 PO2ART 94.4 12/16/2020 [id number] 25.7 12/16/2020 NBEA NOT REPORTED 12/16/2020 PBEA 0.3 12/16/2020 [id number] 97.1 12/16/2020 FIO2 28 12/16/2020 Lab Results [...] to vancomycin - red man syndrome in [place] ED 5. Left ankle soft tissue infection [...] ordered, consent obtained this patient was in [employer] Engineer: Consent consists of incision and drainage with debridement of all nonviable soft tissue and bone, bone culture, soft tissue culture, possible wound VAC HPI : Tip Ansari is a 42 y.o. male seen at [facility] for possible septic arthritis of the left [...] GLUCOSE 148* CALCIUM 8.9 Coags: Recent Labs 01/23/2211 PROT 7.4 Lab Results Component Value Date [...] were not included. [facility] - Infectious diseases evaluation admission date 01/20/2022 reason for consultation: Sepsis Vanco allergy Impression : Current: Vancomycin reaction- Tachycardia fever red neck syndrome in [place] Pulmonary septic emboli, MRSA -cavitations improved, nodules [...] red neck syndrome infection with fever in [place] and again here Label allergic to vanco [...] MRSA septic pulm emboli Infection Control Recommendations [place] Precautions Contact Isolation Antimicrobial Stewardship Recommendations Simplification [...] health care facility Recently seen 12/2021 by ar [facility] for MRSA bacteremia, right knee septic [...] Acid, Whole Blood3.3 High Sed Rate58 High Artmsoelejuoj59.47 High Micro: BC One f two, 01/21 [...] use: Yes Types: Cocaine, Opiates , Marijuana ([place]), Methamphetamines ([place]) Comment: quit heroin Nov [...] Friends and Family: Not on file Attends Sabianist Services: Not on file Active Member of [...] Andrea MD Office: Perfect serve / office [phone] Images from the original note were not [...] is a 42 y.o. male seen at [facility] for possible septic arthritis of the left [...] 3550 [Urine:3550] CBC: Recent Labs 01/20/22 1540 01/21/22 0458 01/23/22 0911 WBC 10.6 -- 5.7 HGB 11.1* -- 11.3* HCT 35.3* -- 34.1* PLT 130* -- 121* CRP -- 51.6* -- BMP: Recent Labs 01/20/22 1540 01/21/22 0458 NA 133* 140 K 4.3 3.9 CL 99 106 CO2 27 20 BUN 17 17 CREATININE 0.70 0.73 GLUCOSE 104* 288* CALCIUM 9.1 8.6 Coags: Recent Labs 01/20/22 1540 01/21/22 0458 PROT 8.3 -- INR -- 1.0 Lab Results Component Value Date SEDRATE 58 (H) 01/21/2022 Recent Labs 01/21/22 0458 CRP 51.6* Physical Exam: Vascular: DP and [...] from the original note were not included. [facility] Office: [phone] Mikie Rodriguez DO, Theo Lerma DO, Stuart [...] Avila MD, Alberto Perez MD, Teresa Quintero, ROLL TABLE OPERATOR, Tika Hernandez, ROLL TABLE OPERATOR, Mary Meléndez, ROLL TABLE OPERATOR, Cathleen Moran, SAIL FINISHER MACHINE, Abdirahman Bella, ROLL TABLE OPERATOR, Leslie Rao, ROLL TABLE OPERATOR, Madalyn Julien, ROLL TABLE OPERATOR, Ro Bernard, ROLL TABLE OPERATOR, Carter Charles, ROLL TABLE OPERATOR, DONOVAN Hunter-C, Eli Fu, DNP, Razia Figueroa, DNP, Keri Walker, ROLL TABLE OPERATOR, Sherrie Rea, ROLL TABLE OPERATOR, Moon Waldrop, ROLL TABLE OPERATOR, Ethel Soto, ROLL TABLE OPERATOR, Jazzy Javier, ROLL TABLE OPERATOR, Shelli Menon, ROLL TABLE OPERATOR [facility] IN-PATIENT SERVICE [facility] Progress Note 01/23/2022 8:25 AM Name: Tip Ansari Acct: [id number] Room: Day: 3 Admit Date: 01/20/2022 10:23 [...] year old gentleman who initially presented to [facility] ED from the local [place] after he developed acute onset chills and shaking. He noted a wound to his left foot as well. Onset was abrupt, as he felt well earlier in the day. Patient was previously at [facility] in December for MRSA bacteremia with tricuspid [...] drug use. Drugs: Cocaine, Opiates , Marijuana ([place]), and Methamphetamines (Crystal Meth). He reports that [...] Results Component Value Date PHART 7.380 12/16/2020 [id number] 44.5 12/16/2020 PO2ART 94.4 12/16/2020 [id number] 25.7 12/16/2020 NBEA NOT REPORTED 12/16/2020 PBEA 0.3 12/16/2020 [id number] 97.1 12/16/2020 FIO2 28 12/16/2020 Lab Results [...] Yes Sinus tachycardia 01/23/2022 Yes Heroin abuse ([facility]) 01/23/2022 Yes Moderate tricuspid regurgitation 01/23/2022 Yes Hepatitis C virus infection without hepatic coma 01/23/2022 Yes Hyperglycemia 01/23/2022 Yes Plan: 1. Sepsis likely due to Nathaniel bacteremia - continue fluconazole. ID following 2. Presumed endocarditis - GIANFRANCO pending; cardiology consulted 3. AE to vancomycin - red man syndrome in [place] ED 4. Left ankle soft tissue infection [...] from the original note were not included. [facility] Office: [phone] Mikie Rodriguez DO, Theo Lerma DO, Stuart [...] Avila MD, Alberto Perez MD, Teresa Quintero, ROLL TABLE OPERATOR, Tika Hernandez, ROLL TABLE OPERATOR, Mary Meléndez, ROLL TABLE OPERATOR, Cathleen Moran, SAIL FINISHER MACHINE, Abdirahman Bella, ROLL TABLE OPERATOR, Leslie Rao, ROLL TABLE OPERATOR, Madalyn Julien, ROLL TABLE OPERATOR, Ro Bernard, ROLL TABLE OPERATOR, Carter Charles, ROLL TABLE OPERATOR, Mckayla Abraham, PA-C, Eli Fu, DNP, Razia Figueroa, DNP, Keri Walker, ROLL TABLE OPERATOR, Sherrie Rea, ROLL TABLE OPERATOR, Moon Waldrop, ROLL TABLE OPERATOR, Ethel Soto, ROLL TABLE OPERATOR, Jazzy Javier, ROLL TABLE OPERATOR, Shelli Menon, ROLL TABLE OPERATOR IN-PATIENT SERVICE [facility] Progress Note 01/22/2022 6:57 PM Name: Tip Ansari Acct: [id number] Room: Day: 2 Admit Date: 01/20/2022 10:23 PM PCP: No primary care provider on file. Code Status: Full Code Subjective: C/C: Sepsis Interval History Status: Ankle pain better controlled No further drainage from wound Patient still feels somewhat anxious Reporting diaphoresis at night Data Base Updates: Afebrile Ogmahmn223 High Hemoglobin A1C5.6 Blood cultures remain negative Brief History: As documented in the medical record: Tip Ansari is a 42 y.o. Non- / non male who presents with No chief complaint on file and is admitted to the hospital for the management of Sepsis (HCC). [place] [facility] [place] [facility] [place] [facility] [...] warm fluids. Patient was a previous hospital [facility] from [facility] and was treated for MRSA bacteremia [...] drug use. Drugs: Cocaine, Opiates , Marijuana ([place]), and Methamphetamines (Crystal Meth). He reports that [...] Results Component Value Date PHART 7.380 12/16/2020 [id number] 44.5 12/16/2020 PO2ART 94.4 12/16/2020 [id number] 25.7 12/16/2020 NBEA NOT REPORTED 12/16/2020 PBEA 0.3 12/16/2020 [id number] 97.1 12/16/2020 FIO2 28 12/16/2020 Lab Results [...] were not included. [facility] - Infectious diseases evaluation admission date 01/20/2022 reason for consultation: Sepsis Vanco allergy Impression : Current: Vancomycin reaction- Tachycardia fever red neck syndrome in [place] Pulmonary septic emboli, MRSA -cavitations improved, nodules [...] red neck syndrome infection with fever in [place] and again here Label allergic to vanco Left ankle MRI looking for a septic joint or tendinitis BC nathaniel albicans x 1, explains elevated procal despite stable appearance Asking for GIANFRANCO Start fluconazole 01/22 Keep doxy for pulm nodules - to help resolve past MRSA septic pulm emboli Infection Control Recommendations [place] Precautions Contact Isolation Antimicrobial Stewardship Recommendations Simplification [...] Acid, Whole Blood3.3 High Sed Rate58 High Rjllnucblqrbq98.47 High Micro: BC One f two, 01/21 [...] use: Yes Types: Cocaine, Opiates , Marijuana ([place]), Methamphetamines (Crystal Meth) Comment: quit heroin Nov [...] Friends and Family: Not on file Attends Sabianist Services: Not on file Active Member of [...] Andrea MD Office: Perfect serve / office [phone] Physical Therapy Facility/Department: [facility] CAR 2 Daily Treatment Note NAME: Tip [...] original note were not included. Occupational Therapy [facility] Occupational Therapy Not Seen Note DATE: 01/22/2022 [...] loss Fluid Accumulation: No significant fluid accumulation Transplant Immunologist Strength: Not Performed Estimated Daily Nutrient Needs: [...] kg) (12/13/21 bed scale per chart review) [place] Body Weight: 178 lbs; % [place] Body Weight 90.4 % BMI: 21.8 BMI [...] Discharge Planning: Too soon to determine Contact: [phone] Physical Therapy Facility/Department: [place] [address] Initial Assessment NAME: Tip Ansari : 1980 [...] Ambulation Assistance: Independent Transfer Assistance: Independent Active Sales Representative: No Cognition Cognition Overall Cognitive Status: WNL [...] limited to within the room due to diane request as pt out of handcuffs Balance [...] Treatment Minutes: 13 Minutes Liz Rose PT [facility] Pharmacokinetic Monitoring Service - Vancomycin Tip [...] from the original note were not included. [facility] Office: [phone] Mikie Rodriguez DO, Theo Lerma DO, Stuart [...] Avila MD, Alberto Perez MD, Teresa Quintero, ROLL TABLE OPERATOR, Tika Hernandez ROLL TABLE OPERATOR, Mary Meléndez, ROLL TABLE OPERATOR, Cathleen Moran, SAIL FINISHER MACHINE, Abdirahman Bella, ROLL TABLE OPERATOR, Leslie Rao ROLL TABLE OPERATOR, Madalyn Julien, ROLL TABLE OPERATOR, Ro Bernard, ROLL TABLE OPERATOR, Carter Charles, ROLL TABLE OPERATOR, Mckayla Abraham PA-C, Eli Fu DNP, Razia Figueroa DNP, Keri Walker, PABLO, Sherrie Rea, PABLO, Moon Waldrop, ROLL TABLE OPERATOR, Ethel Soto, ROLL TABLE OPERATOR, Jazzy Javier, ROLL TABLE OPERATOR, Shelli Menon, ROLL TABLE OPERATOR IN-PATIENT SERVICE [facility] Progress Note 01/21/2022 1:33 PM Name: Tip Ansari Acct: [id number] Room: IP Day: 1 Admit Date: 01/20/2022 10:23 PM PCP: No primary care provider on file. Code Status: Full Code Subjective: C/C: Sepsis Interval History Status: Not much change Still reporting ankle pain Not sleeping Feels anxious Data Base Updates: Patient has been afebrile [id number] High mg/dL XYL83yp/dL CREATININE0.73mg/dL Calcium8.6mg/dL Ygfilz429npwz/L Potassium3.9 Lactic Acid, Whole Blood3.3 High Sed Rate58 High Ankle x-ray: Impression: 1. Soft tissue swelling along the heel of the left foot. No evidence of osteomyelitis. Blood cultures negative Specimen Source: Blood Specimen Description.BLOOD Special Ctzamate8XC R WRIST CultureNO GROWTH 12 HOURS Brief History: As documented in the medical record: Tip Ansari is a 42 y.o. Non- / non male who presents with No chief complaint on file and is admitted to the hospital for the management of Sepsis (HCC). [facility] [place] [facility] [place] [...] warm fluids. Patient was a previous hospital [facility] from [facility] and was treated for MRSA bacteremia [...] drug use. Drugs: Cocaine, Opiates , Marijuana ([place]), and Methamphetamines (Crystal Meth). He reports that [...] Results Component Value Date PHART 7.380 12/16/2020 INV7GRB 44.5 12/16/2020 PO2ART 94.4 12/16/2020 VWF8BTD 25.7 12/16/2020 NBEA NOT REPORTED 12/16/2020 PBEA 0.3 12/16/2020 [id number] 97.1 12/16/2020 FIO2 28 12/16/2020 Lab Results [...] 01/21/2022 1:33 PM documented in this encounter obopay Phone: 01-30-2022 Hospital Discharge instructions Kyle Broussard DO - 01/30/2022 1:44 PM EDT Continuity of Care Form Patient Name: Tip Narayanansar : 1980 Admit date: 01/20/2022 Discharge date: Code Status Order: Full Code Advance Directives: Admitting Physician: Fabricio Syed DO PCP: No primary care provider on file. Discharging Nurse: Discharging Hospital Unit/Room#: Discharging Unit Phone Number: Emergency Contact: Extended Emergency Contact Information Primary Emergency Contact: Alisa Ansari Address: [place] [address] Relation: Parent Secondary Emergency Contact: jaida greenberg Mobile Relation: Aunt/Uncle Past Surgical History: Past Surgical History: Procedure Laterality Date ABSCESS DRAINAGE Left 2020 arm APPENDECTOMY FINGER SURGERY Right 5 th finger tendon repair FOOT DEBRIDEMENT Left 01/26/2022 INCISION AND DRAINAGE, BONE LEFT CALCANEOUS performed by Tip Grewal DPM at [facility] OR FOOT SURGERY Left 01/26/2022 INCISION AND DRAINAGE, BONE LEFT CALCANEOUS (Left Foot) PICC INSERTION VASCULAR ACCESS TEAM 01/25/2022 TYMPANOSTOMY TUBE PLACEMENT Bilateral Immunization History: There is no immunization history on file for this patient. 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 I33.0, 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[facility]) M00.061 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 Moderate tricuspid regurgitation I07.1 Hyperkalemia E87.5 Endocarditis I38 Sepsis ([facility]) A41.9 Staphylococcal arthritis of left ankle ([facility]) M00.072 Hyperglycemia R73.9 Sepsis due to Nathaniel species without acute organ dysfunction ([facility]) B37.7, R65.20 Sinus tachycardia R00.0 Septic bursitis of Achilles M71.10 Acute osteomyelitis of left calcaneus ([facility]) M86.172 Opiate withdrawal ([facility]) F11.23 Acute hematogenous osteomyelitis of left ankle ([facility]) M86.072 Isolation/Infection: Isolation Contact Patient Infection Status [...] Rapid (Ordered) 12/17/21 Palomo Barone RN COVID-19 02/03/3112/16/20 12/16/20 COVID-19, PCR 12/30/20 COVID-19 (Rule Out) [...] (79.2 kg) Mental Status: {IP PT MENTAL STATUS:} IV Access: { CARLINE IV ACCESS:298755917} Nursing Mobility/ADLs: Walking {CHP DME ADLs:269169561} Transfer {P DME ADLs:095695458} Bathing {CHP DME ADLs:427652763} Dressing {CHP DME ADLs:151111868} Toileting {CHP DME ADLs:857126699} Feeding {P DME ADLs:434980663} Mandrel Puller {P DME ADLs:687977885} Med Delivery { CARLINE MED Delivery:367870733} Wound Care Documentation and Therapy: Wound 01/20/22 [...] Bladder: {YES / NO:} Urinary Catheter: {Urinary Catheter:909300610} Colostomy/Ileostomy/Ileal Conduit: {YES / NO:} Date of Last BM: Intake/Output Summary (Last 24 hours) at 01/30/2022 1344 Last data filed at 01/30/2022 1020 Gross per 24 hour Intake 540 ml Output 3480 ml Net -2940 ml I/O last 3 completed shifts: In: 2897 [P.O.:1620; I.V.:927; IV Piggyback:350] Out: 4475 [Urine:4475] Safety Concerns: { CARLINE Safety Concerns:763619884} Impairments/Disabilities: { CARLINE Impairments/Disabilities:79299485 3} Nutrition Therapy: Current Nutrition Therapy: { CARLINE Diet List:860925327} Routes of Feeding: {[facility] Other Feedings:658597959} Liquids: {[facility] liquid thickness:17511} Daily Fluid Restriction: {[facility] DME Yes amt example:968541292} Last Modified Barium Swallow with Video (Video Swallowing Test): {Done Not Done Date:} Treatments at the Time of Hospital Discharge: Respiratory Treatments: Oxygen Therapy: {Therapy; copd oxygen:90988} Ventilator: {[facility] Vent List:056995128} Rehab Therapies: {THERAPEUTIC INTERVENTION:5935656257} Weight Bearing Status/Restrictions: {[facility] Weight Bearin} Other Medical Equipment (for information only, NOT a DME order): {EQUIPMENT:361551448} Other Treatments: Patient's personal belongings (please select all that are sent with patient): {[facility] Belongings:920848680} RN SIGNATURE: {Esignature:349137333} CASE MANAGEMENT/SOCIAL WORK SECTION Inpatient Status Date: Readmission Risk Assessment Score: Readmission Risk Risk of Unplanned Readmission: 22 Discharging to Facility/ Agency Name: Address: Phone: Fax: Dialysis Facility (if applicable) Name: Address: Dialysis Schedule: Phone: Fax: Insurance Sales Assistant/Spring Tacker signature: {Esignature:957025868} PHYSICIAN SECTION Prognosis: Good Condition at Discharge: [...] need to follow up with Dr. Fabricio Syed, . Call when you get home to schedule or confirm your appointment. Call your Carbon Paper Coating Machine Setter office if you have any questions or concerns. documented in this encounter obopay Phone: 01-10-2022 Hospital Discharge instructions Jessica Barrow MD - 01/10/2022 Discussed results with patient. He has no intention of hurting self. We discussed patient going to drug rehab. Patient has no primary care thus was referred to Dr. More. Patient is also continue going to [facility] for his vancomycin injection weekly. documented in this encounter obopay Phone: 12-20-2021 History of Present illness Narrative Patient to IR for right shoulder aspirate. PA and GL/HANH RTs at bedside. Site prepped and draped, area numbed with lidocaine. Access obtained and scant amount red fluid obtained by lavage. Specimen to be sent to lab by promotion writer. Access removed and band aid placed to site. Patient tolerated well and taken to IR holding area awaiting transport. Images from the original note were not included. [facility] - Infectious diseases evaluation admission date 12/13/2021 [...] 45.9 anticipate 6 weeks iv Ab at [place] Due to ongoing drug use, dalbavancin weekly x 2, then will need to repeat, vs FU w po doxy FU outpt Need 2 BC in [address] chest in a month Infection Control Recommendations [place] Precautions Contact Isolation Antimicrobial Stewardship Recommendations Simplification [...] he is a heroin user Went to [place] with shortness of breath and fever, hypoxic [...] 0.52->0.38-> 0.72 Micro: Blood culture + through 25 BC 12/17 - 12/18 - 12/19 shows no growth so far. Imaging: CXR 12/19 Scattered pulmonary infiltrates seen with right-sided PICC line. C T scan [facility] 12/11 suggestive of multifocal septic emboli [...] use: Yes Types: Cocaine, Opiates , Marijuana ([place]), Methamphetamines (Crystal Meth) Comment: quit heroin Nov [...] Friends and Family: Not on file Attends Sabianist Services: Not on file Active Member of [...] the original note were not included. [employer] Specialist Progress Note Date: 12/20/2021 Patient name: Tip [...] while caught snoring drugs in room per barrel builder of Systems Medications: Scheduled Meds: [START ON [...] , please call back with any concerns [place] [employer] Specialist [facility]. [phone] [facility] Pharmacokinetic Monitoring Service - Vancomycin Consulting [...] loss Fluid Accumulation: No significant fluid accumulation Transplant Immunologist Strength: Not Performed Estimated Daily Nutrient Needs: Energy (kcal): 25-28 kcal/kg = 5943-5282 kcals/day; Weight Used for Energy Requirements: Current [...] lb (85.7 kg) (05/2021 per chart review) [place] Body Weight: 184 lbs; % [place] Body Weight 93.6 % BMI: 22.7 BMI [...] Discharge Planning: Too soon to determine Contact: [phone] Physical Therapy Facility/Department: [facility] RENAL//MED SURG Daily Treatment Note NAME: Tip [...] the original note were not included. [employer] Specialist Progress Note Date: 12/19/2021 Patient name: Tip [...] on echo after ATB course as OP [place] [employer] Specialist [facility]. [phone] Images from the original note were not included. [facility] - Infectious diseases evaluation admission date 12/13/2021 [...] had septic pulmonary emboli Infection Control Recommendations [place] Precautions Contact Isolation Antimicrobial Stewardship Recommendations Simplification [...] he is a heroin user Went to [place] with shortness of breath and fever, hypoxic [...] 12/16. C/o persistent pain of the joints. 2/ Afebrile, VS stable, tachycardic. Comfortable on room [...] with right-sided PICC line. C T scan [facility] 12/11 suggestive of multifocal septic emboli [...] use: Yes Types: Cocaine, Opiates , Marijuana ([place]), Methamphetamines (Crystal Meth) Comment: quit heroin Nov [...] Friends and Family: Not on file Attends Sabianist Services: Not on file Active Member of [...] Internal Medicine Resident, PGY-1 Infectious Disease Service, [facility]. I have discussed the care [...] from the original note were not included. [facility] Office: [phone] Mikie Rodriguez DO, Theo Lerma DO, Stuart Natarajan DO, Hapral Tran DO, Prashanth Sadler MD, Deana Raza MD, Florencia Canela MD, Tess Ford MD, Yuliana Saenz MD, Leodan Mak MD, Marimar Ren MD, Fabricio Syed DO, Kyle Broussard DO, Juan Driver MD, Sophia Agustin DO, Lyle Woods MD, Jodi Bain MD, Palomo Drummond MD, Radha Avila MD, Alberto Perez MD, Teresa Quintero ROLL TABLE OPERATOR, Tika Hernandez ROLL TABLE OPERATOR, Mary Meléndez, ROLL TABLE OPERATOR, Cathleen Moran, SAIL FINISHER MACHINE, Abdirahman Bella, ROLL TABLE OPERATOR, Leslie Rao ROLL TABLE OPERATOR, Madalyn Dixon ROLL TABLE OPERATOR, Ro Bernard, ROLL TABLE OPERATOR, Carter Charles, ROLL TABLE OPERATOR, Mckayla Abraham, PA-Junior, Eli Fu, DNP, Razia Figueroa, DNP, Keri Walker, ROLL TABLE OPERATOR, Sherrie Rea, ROLL TABLE OPERATOR, Moon Waldrop, ROLL TABLE OPERATOR, Ethel Soto, ROLL TABLE OPERATOR, Jazzy Javier CNP, Shelli Menon CNP [facility] IN-PATIENT SERVICE [facility] Progress Note 12/19/2021 8:19 AM Name: Tip Ansari Acct: [id number] Room: 0316/0316-01 IP Day: 6 Admit Date: 12/13/2021 6:34 PM [...] with weakness. He was directly admitted from [place] Dec 13 for the management of Septic embolism (HCC). Pt has used Heroin intermittently several years Presented to [facility] ED 12/11 with 2 day hx of [...] drug use. Drugs: Cocaine, Opiates , Marijuana ([place]), and Methamphetamines (Crystal Meth). He reports that [...] Intake/Output Summary (Last 24 hours) at 12/19/2021 0819 Last data filed at 12/18/2021 1719 Gross [...] Results Component Value Date PHART 7.380 12/16/2020 EPW8THJ 44.5 12/16/2020 PO2ART 94.4 12/16/2020 ZUL5FAH 25.7 12/16/2020 NBEA NOT REPORTED 12/16/2020 PBEA 0.3 12/16/2020 X0AFVNOE 97.1 12/16/2020 FIO2 28 12/16/2020 Lab Results [...] 12/19/2021 8:19 AM Associated attestation - Theo Lerma DO - 12/19/2021 8:51 PM EST Attestation: [...] seen. Mild MR noted. Calcium8.4 Low mg/dL Rsgtdw105 Low mmol/L Potassium5.4 High Follow-up chest x-ray: [...] Training,Pain Management,Safety Education & Training,Self-Care / ADL AM-PAC Score AM-PAC Inpatient Daily Activity Raw Score: 19 (12/18/211642) AM-PAC Inpatient ADL T-Scale Score : 40.22 (12/18/211642) [...] Time Individual Concurrent Group Co-treatment Time In 7 Time Out 1600 Minutes 23 Timed Code Treatment Minutes: 15 Minutes (ADL) BREE Balderrama OTR/L Physical Therapy Facility/Department: [facility] RENAL//MED SURG Daily Treatment Note NAME: Tip Mckeonr : 1980 Date of Service: 12/18/2021 No chief complaint on file. Weakness, chest pain, shortness of breath Tip Ansari is a 41 y.o. male who presents with weakness. Pt was admitted from [place] Dec 13 for the management of Septic [...] from the original note were not included. [facility] Office: [phone] Mikie Rodriguez DO, Theo Lerma DO, Stuart Natarajan DO, Harpal Tran DO, Prashanth Sadler MD, Deana Raza MD, Florencia Canela MD, Tess Ford MD, Yuliana Saenz MD, Leodan Mak MD, Marimar Ren MD, Fabricio Syed DO, Kyle Broussard DO, Juan Driver MD, Sophia Agustin DO, Lyle Woods MD, Jodi Bain MD, Palomo Drummond MD, Radha Avila MD, Alberto Perez MD, Teresa Quintero, ROLL TABLE OPERATOR, Tika Hernandez, ROLL TABLE OPERATOR, Mary Meléndez, ROLL TABLE OPERATOR, Cathleen Moran, [facility], Abdirahman Bella, ROLL TABLE OPERATOR, Leslie Rao, ROLL TABLE OPERATOR, Madalyn Dixon, ROLL TABLE OPERATOR, Ro Bernard, ROLL TABLE OPERATOR, Carter Charles, ROLL TABLE OPERATOR, KO HunterC, Eli Fu, DNP, Razia Figueroa, DNP, Keri Walker, ROLL TABLE OPERATOR, Sherrie Rea, ROLL TABLE OPERATOR, Moon Waldrop, ROLL TABLE OPERATOR, Ethel oSto, ROLL TABLE OPERATOR, Jazzy Javier, ROLL TABLE OPERATOR, Shelli Menon, ROLL TABLE OPERATOR [facility] IN-PATIENT SERVICE [facility] Progress Note 12/18/2021 12:26 PM Name: Tip Ansari Acct: [id number] Room: [facility]/0316-01 Day: 5 Admit Date: 12/13/2021 6:34 PM [...] with weakness. He was directly admitted from [place] Dec 13 for the management of Septic embolism (HCC). Pt has used Heroin intermittently several years Presented to [facility] ED 12/11 with 2 day hx of [...] drug use. Drugs: Cocaine, Opiates , Marijuana ([place]), and Methamphetamines (Crystal Meth). He reports that [...] No results for input(s): PROT, LABALBU, LABA1C, Q6DVTFV, F5UQNSI, FT4, TSH, AST, ALT, LDH, GGT, ALKPHOS, LABGGT, BILITOT, BILIDIR, AMMONIA, AMYLASE, LIPASE, LACTATE, CHOL, HDL, LDLCHOLESTEROL, CHOLHDLRATIO, TRIG, VLDL, UJW17UK, PHENYTOIN, PHENYF, URICACID, POCGLU in the last 72 hours. ABG: Lab Results Component Value Date PHART 7.380 12/16/2020 VFK7ASE 44.5 12/16/2020 PO2ART 94.4 12/16/2020 GLX5HTJ 25.7 12/16/2020 NBEA NOT REPORTED 12/16/2020 PBEA 0.3 12/16/2020 L8WUQGSW 97.1 12/16/2020 FIO2 28 12/16/2020 Lab Results [...] bolus of normal saline and monitor 9. customer strategy manager to help with discharge planning for outpatient IV antibiotics, can be discharged once that is arranged Marimar Ren MD 12/18/2021 12:26 PM Images from the original note were not included. [employer] Special[employer] Progress Note Date: 12/18/2021 Patient name: Tip [...] on echo after ATB course as OP [place] [employer] Specialist [facility]. [phone] Images from the original note were not included. [facility] - Infectious diseases evaluation admission date 12/13/2021 [...] weekly vs dalbavancin weekly Infection Control Recommendations [place] Precautions Contact Isolation Antimicrobial Stewardship Recommendations Simplification [...] he is a heroin user Went to [place] with shortness of breath and fever, hypoxic [...] BUN 9->10 Cr 0.52->0.38 Micro: Blood culture 2/2 X 2 MRSA 2/5: MRSA x 2 12/18 pending Imaging: C T scan [facility] 12/11 suggestive of multifocal septic emboli [...] use: Yes Types: Cocaine, Opiates , Marijuana ([place]), Methamphetamines (Crystal Meth) Comment: quit heroin Nov [...] Friends and Family: Not on file Attends Sabianist Services: Not on file Active Member of [...] Internal Medicine Resident, PGY-1 Infectious Disease Service, [facility]. I have discussed the care [...] per nursing. Pain well-controlled . Denies: fever/chills, ANDRES, CP, SOB, N/V, dysuria, or numbness/tingling in [...] Ortho with any questions or concerns Nhung García DO PGY-2 Orthopedic Surgery 4:33 AM 12/18/2021 [facility] Pharmacokinetic Monitoring Service - Vancomycin [...] were not included. [facility] - Infectious diseases evaluation Progress Note admission date 12/13/2021 reason for consultation: Septic pulmonary emboli Impression : Current: Pulmonary septic emboli with cavitary pneumonia MRSA septicemia Heroin use Chronic hepC Severe Allergy to PNC Discussion / summary of stay / plan of care Recommendations Continue Vanco for MRSA bacteremia GIANFRANCO to look for vegetations Repeat blood culture still negative Infection Control Recommendations [place] Precautions Contact Isolation Antimicrobial Stewardship Recommendations Simplification [...] he is a heroin user Went to [place] with shortness of breath and fever, hypoxic [...] (37 C) Oral 100 16 95 % 2/4 Walking, comfortable, ambulating without any lower back [...] wrist: No growth Imaging: C T scan [facility] 12/11 suggestive of multifocal septic emboli [...] use: Yes Types: Cocaine, Opiates , Marijuana ([place]), Methamphetamines (Crystal Meth) Comment: quit heroin Nov [...] Friends and Family: Not on file Attends Sabianist Services: Not on file Active Member of [...] 0.53* 0.52* Hepatic Function Panel: Recent Labs 12/15/21 0514 PROT 5.7* LABALBU 1.9* BILITOT 0.38 ALKPHOS [...] actual meaningcan be extrapolated by contextual diversion. Traiq Dumont MD Office: Perfect serve / office [phone] Images from the original note were not included. [place] [employer] Progress Note Date: 12/17/2021 Patient name: Tip [...] Continuous Infusions: sodium chloride CBC: Recent Labs 12/15/2151312/16/2160112/17/21 0547 WBC 8.3 7.4 6.2 HGB 9.8* 9.7* 9.4* PLT 140 163 188 BMP: Recent Labs 12/15/2114 12/16/21 0602 12/17/21 0547 NA 129* 128* 131* K 4.2 4.1 4.7 CL 100 97* 102 CO2 22 23 24 BUN 9 10 9 CREATININE 0.55* 0.53* 0.52* GLUCOSE 111* 117* 97 Hepatic: Recent Labs 12/15/21513 AST 55* ALT 64* BILITOT 0.38 ALKPHOS [...] on echo after ATB course as OP [employer] [phone] Orthopedic Progress Note Patient: Tip Ansari, 41 y.o. male Date of : 1980 Subjective: Patient seen and examined. No complaints or concerns. Joints that were aspirated yesterday feel much better today. Pain controlled on current regimen. No acute issues overnight. Denies fever, ANDRES, CP, SOB, N/V. Has been NPO since [...] - Please reach out to ortho resident industrial relations specialist with any questions - Follow up w/ Dr. Barajas as needed outpatient . Images from the original note were not included. [facility] Office: [phone] Mikie Rodriguez DO, Theo Lerma DO, Stuart Natarajan DO, Harpal Tran DO, Prashanth Sadler MD, Deana Raza MD, Florencia Canela MD, Tess Ford MD, Yuliana Saenz MD, Leodan Mak MD, Marimar Ren MD, Fabricio Syed DO, Kyle Broussard DO, Juan Driver MD, Sophia Agustin DO, Lyle Woods MD, Jodi Bain MD, Palomo Drmumond MD, Radha Avila MD, Ablerto Perez MD, Teresa Quintero CNP, Tika Hernandez CNP, Mary Meléndez, PABLO, Cathleen Moran, SAIL FINISHER MACHINE, Abdirahman Bella, ROLL TABLE OPERATOR, Leslie Rao CNP, Madalyn Dixon CNP, Ro Bernard, ROLL TABLE OPERATOR, Carter Charles, ROLL TABLE OPERATOR, Mckayla Abraham PA-C, Eli Fu, DNP, Razia Figueroa, DNP, Keri Walker, ROLL TABLE OPERATOR, Sherrie Rea, ROLL TABLE OPERATOR, Moon Waldrop, ROLL TABLE OPERATOR, Ethel Soto CNP, Jazzy Javier CNP, Shelli Menon CNP [facility] IN-PATIENT SERVICE [facility] Progress Note 12/17/2021 12:05 PM Name: Tip Ansari Acct: [id number] Room: 0316/0316-01 IP Day: 4 Admit Date: 12/13/2021 6:34 PM [...] with weakness. He was directly admitted from [place] Dec 13 for the management of Septic embolism (HCC). Pt has used Heroin intermittently several years Presented to [facility] ED 12/11 with 2 day hx of [...] drug use. Drugs: Cocaine, Opiates , Marijuana ([place]), and Methamphetamines (Crystal Meth). He reports that [...] Net -1850 ml Labs: Hematology: Recent Labs 12/15/2151312/16/21 0602 12/17/21 0547 WBC 8.3 7.4 6.2 RBC 3.52* 3.49* 3.36* HGB 9.8* 9.7* 9.4* HCT 29.7* 29.2* 28.4* MCV 84.4 83.7 84.5 MCH 27.8 27.8 28.0 MCHC 33.0 33.2 33.1 RDW 15.0* 15.0* 14.9* PLT 140 163 188 MPV 10.5 10.0 9.9 SEDRATE -- 32* -- CRP 62.9* -- 56.1* Chemistry: Recent Labs 12/15/2151312/16/21 0602 12/17/21 0547 NA 129* 128* 131* [...] Results Component Value Date PHART 7.380 12/16/2020 [id number] 44.5 12/16/2020 PO2ART 94.4 12/16/2020 [id number] 25.7 12/16/2020 NBEA NOT REPORTED 12/16/2020 PBEA 0.3 12/16/2020 [id number] 97.1 12/16/2020 FIO2 28 12/16/2020 Lab Results [...] GI 7. Substance abuse outpatient rehab 8. customer strategy manager to help with discharge planning for outpatient IV antibiotics Marimar Ren MD 12/17/2021 12:05 PM Images from the original note were not included. [facility] - Infectious diseases evaluation admission date 12/13/2021 reason for consultation: Septic pulmonary emboli Impression : Current: Pulmonary septic emboli with cavitary pneumonia MRSA septicemia Heroin use Chronic hepC Allergy severe to PNC Other: Discussion / summary of stay / plan of care Recommendations Continue Vanco for MRSA bacteremia GIANFRANCO to look for vegetations Repeat blood culture still negative Infection Control Recommendations [place] Precautions Contact Isolation Antimicrobial Stewardship Recommendations Simplification [...] he is a heroin user Went to [place] with shortness of breath and fever, hypoxic [...] (37.3 C) Oral 108 18 98 % 2/ Walking comfortable ambulating without any lower back pain management pain Left hand dorsum area remains red tender swollen, patient claims it was only after blood was removed Denies there was an injection of drugs in that area Blood cultures MRSA Summary of relevant labs: Labs: WBC 9.1 9.2 Platelets 112 Micro: Blood culture 12/13 X 2 MRSA Imaging: C T scan [facility] 12/11 suggestive of multifocal septic emboli [...] use: Yes Types: Cocaine, Opiates , Marijuana ([place]), Methamphetamines (Crystal Meth) Comment: quit heroin Nov [...] Friends and Family: Not on file Attends Sabianist Services: Not on file Active Member of [...] following labs: CBC with Differential: Recent Labs 12/15/2151312/16/21601 WBC 8.3 7.4 HGB 9.8* 9.7* HCT 29.7* 29.2* PLT 140 163 LYMPHOPCT 15* 15* MONOPCT 10 10 BMP: Recent Labs 12/15/2151312/16/21601 NA 129* 128* K 4.2 4.1 CL [...] Dumont MD Office: Perfect serve / office [phone] ATTESTATION: I have discussed the case, including [...] monitor and follow Thank you, Paco Fraser, AltagraciaD, 12/16/2021 1:29 PM Images from the original note were not included. [facility] Office: [phone] Mikie Rodriguez DO, Theo Lerma DO, Stuart Natarajan DO, Harpal Tran DO, Prashanth Sadler MD, Deana Raza MD, Florencia Canela MD, Tess Ford MD, Yuliana Saenz MD, Leodan Mak MD, Marimar Ren MD, Fabricio Syed DO, Kyle Broussard DO, Juan Driver MD, Sophia Agustin DO, Lyle Woods MD, Jodi Bain MD, Palomo Drummond MD, Radha vAila MD, Alberto Perez MD, Teresa Quintero, ROLL TABLE OPERATOR, Tika Hernandez ROLL TABLE OPERATOR, Mary Meléndez, ROLL TABLE OPERATOR, Cathleen Moran, CHANTALE, Abdirahman Bella, PABLO, Leslie Rao ROLL TABLE OPERATOR, Madalyn Dixon, ROLL TABLE OPERATOR, Ro Bernard, ROLL TABLE OPERATOR, Carter Charles, ROLL TABLE OPERATOR, KO HunterC, Eli Fu DNP, Razia Figueroa DNP, Keri Walker CNP, Sherrie Rea CNP, Moon Waldrop ROLL TABLE OPERATOR, Ethel Soto ROLL TABLE OPERATOR, Jazzy Javier ROLL TABLE OPERATOR, Shelli Menon, ROLL TABLE OPERATOR [facility] IN-PATIENT SERVICE [facility] Progress Note 12/16/2021 12:34 PM Name: Tip Ansari Acct: [id number] Room: 0316/0316-01 Day: 3 Admit Date: 12/13/2021 6:34 PM [...] with weakness. He was directly admitted from [place] Dec 13 for the management of Septic embolism (HCC). Pt has used Heroin intermittently several years Presented to [facility] ED 12/11 with 2 day hx of [...] drug use. Drugs: Cocaine, Opiates , Marijuana ([place]), and Methamphetamines (Crystal Meth). He reports that [...] Net 482 ml Labs: Hematology: Recent Labs 12/13/21 1914 12/13/21 2106 12/13/21 2106 12/14/21 0552 12/15/21 0514 12/16/21 0602 WBC -- 9.1 < > 9.2 [...] this interval not displayed. Chemistry: Recent Labs 12/13/21191312/13/21191312/14/21 0552 12/15/2151312/16/21 0602 NA 135 < > 135 129* [...] in this interval not displayed. Recent Labs 12/15/21513 PROT 5.7* LABALBU 1.9* AST 55* ALT 64* ALKPHOS 117 BILITOT 0.38 ABG: Lab Results Component Value Date PHART 7.380 12/16/2020 QIL2LEQ 44.5 12/16/2020 PO2ART 94.4 12/16/2020 [id number] 25.7 12/16/2020 NBEA NOT REPORTED 12/16/2020 PBEA 0.3 12/16/2020 [id number] 97.1 12/16/2020 FIO2 28 12/16/2020 Lab Results [...] GI 7. Substance abuse outpatient rehab 8. customer strategy manager to help with discharge planning for outpatient IV antibiotics Marimar Ren MD 12/16/2021 12:34 PM Images from the original note were not included. [facility] - Infectious diseases evaluation admission date 12/13/2021 reason for consultation: Septic pulmonary emboli Impression : Current: Pulmonary septic emboli with cavitary pneumonia MRSA septicemia Heroin use Chronic hepC Allergy severe to PNC Other: Discussion / summary of stay / plan of care Recommendations Continue Vanco for MRSA bacteremia GIANFRANCO to look for vegetations Repeat blood culture still negative Infection Control Recommendations [place] Precautions Contact Isolation Antimicrobial Stewardship Recommendations Simplification [...] he is a heroin user Went to [place] with shortness of breath and fever, hypoxic [...] 98.6 F (37 C) Oral 108 18 2/4 Walking comfortable ambulating without any lower back pain management pain Left hand dorsum area remains red tender swollen, patient claims it was only after blood was removed Denies there was an injection of drugs in that area Blood cultures MRSA Summary of relevant labs: Labs: WBC 9.1 9.2 Platelets 112 Micro: Blood culture 2/2 X 2 MRSA Imaging: C T scan [facility] 12/11 suggestive of multifocal septic emboli [...] use: Yes Types: Cocaine, Opiates , Marijuana ([place]), Methamphetamines (Crystal Meth) Comment: quit heroin Nov [...] Friends and Family: Not on file Attends Sabianist Services: Not on file Active Member of [...] following labs: CBC with Differential: Recent Labs 12/14/21 0552 12/15/21 0514 WBC 9.2 8.3 HGB 10.3* 9.8* HCT 30.8* 29.7* PLT 150 140 LYMPHOPCT 11* 15* MONOPCT 9 10 BMP: Recent Labs 12/13/21191312/13/21 1914 12/14/21 0552 12/15/2114 NA 135 < > 135 129* K [...] meaningcan be extrapolated by contextual diversion. Marisol Adnrea MD Office: Perfect serve / office [phone] Patient admitted, consent signed and questions answered. Patient ready for procedure. Call light to reach with side rails up 2 of 2. No family at bedside with patient. History and physical complete. Images from the original note were not included. [facility] Office: [phone] Mikie Rodriguez DO, Theo Lerma, DO, Stuart Natarajan DO, Harpal Tran, DO, Prashanth Sadler MD, Deana Raza MD, Florencia Canela MD, Tess Ford MD, Yuliana Saenz MD, Leodan Mak MD, Marimar Ren MD, Fabricio Syed DO, Kyle Broussard DO, Juan Driver MD, Sophia Agustin DO, Lyle Woods MD, Jodi Bain MD, Palomo Drummond MD, Radha Avila MD, Alberto Perez MD, Teresa Quintero, ROLL TABLE OPERATOR, Tika Hernandez ROLL TABLE OPERATOR, Mary Meléndez, ROLL TABLE OPERATOR, Cathleen Moran, SAIL FINISHER MACHINE, Abdirahman Bella, ROLL TABLE OPERATOR, Leslie Rao, ROLL TABLE OPERATOR, Madalyn Dixon, ROLL TABLE OPERATOR, Ro Bernard, ROLL TABLE OPERATOR, Carter Charles, ROLL TABLE OPERATOR, Mckayla Abraham PA-C, Eli Fu, DNP, Razia Figueroa, DNP, Keri Walker, ROLL TABLE OPERATOR, Sherrie Rea, ROLL TABLE OPERATOR, Moon Waldrop, ROLL TABLE OPERATOR, Ethel Soto, ROLL TABLE OPERATOR, Jazzy Javier, ROLL TABLE OPERATOR, Shelli Menon, ROLL TABLE OPERATOR [facility] IN-PATIENT SERVICE [facility] Progress Note 12/15/2021 3:28 PM Name: Tip Ansari Acct: [id number] Room: [address] [place] [address] Day: 2 Admit Date: 12/13/2021 6:34 PM [...] with weakness. He was directly admitted from [place] Dec 13 for the management of Septic embolism (HCC). Pt has used Heroin intermittently several years Presented to [facility] ED 12/11 with 2 day hx of [...] drug use. Drugs: Cocaine, Opiates , Marijuana ([place]), and Methamphetamines (Crystal Meth). He reports that [...] Net -454 ml Labs: Hematology: Recent Labs 12/13/21191312/13/21210512/14/2155112/15/21 0514 WBC -- 9.1 9.2 8.3 RBC [...] -- 2.63 -- -- Chemistry: Recent Labs 12/13/21191312/14/21 0552 12/15/21 0514 NA 135 135 129* K 3.4* 3.6* 4.2 CL 104 106 100 CO2 22 23 22 GLUCOSE 121* 111* 111* BUN 9 13 9 CREATININE 0.56* 0.55* 0.55* MG 1.9 -- -- ANIONGAP 9 6* 7* LABGLOM >60 >60 >60 GFRAA >60 >60 >60 CALCIUM 7.4* 7.6* 7.0* TROPHS <6 -- -- Recent Labs 12/15/21 0514 PROT 5.7* LABALBU 1.9* AST 55* ALT 64* ALKPHOS 117 BILITOT 0.38 ABG: Lab Results Component Value Date PHART 7.380 12/16/2020 [id number] 44.5 12/16/2020 PO2ART 94.4 12/16/2020 [id number] 25.7 12/16/2020 NBEA NOT REPORTED 12/16/2020 PBEA 0.3 12/16/2020 [id number] 97.1 12/16/2020 FIO2 28 12/16/2020 Lab Results [...] Internal Medicine Residency Program 12/15/2021, 4:34 PM [facility] Pharmacokinetic Monitoring Service - Vancomycin Consulting [...] 12/15/2021 1:42 PM Physical Therapy Facility/Department: [facility] RENAL//MED SURG Initial Assessment NAME: iTp Ansari : 1980 The patient is a [...] Bed mobility Supine to Sit: Minimal assistance (SYSTEM SOFTWARE PROGRAMMER for trunk progression) Sit to Supine: (pt [...] Barbara Ojeda PT Physician Progress Note PATIENT: [facility] #: [id number] : 1980 ADMIT DATE: 12/13/2021 6:34 PM [...] with brown/yellow phlegm, Treatment: monitor, transfer from [place], oxygen therapy. Thank You, Johann BRIONES, CDS- email - [email or web address] cell- [phone] office hours [id number] Acute Respiratory Failure Clinical Indicators per MS-DRG Training Guide and Quick Reference Guide: [...] from the original note were not included. [facility] Office: [phone] Mikie Rodriguez DO, Theo Lerma DO, Stuart Natarajan DO, Harpal Tran DO, Prashanth Sadler MD, Deana Raza MD, Florencia Canela MD, Tess Ford MD, Yuliana Saenz MD, Leodan Mak MD, Marimar Ren MD, Fabricio Syed DO, Kyle Broussard DO, Juan Driver MD, Sophia Agustin DO, Lyle Woods MD, Jodi Bain MD, Palomo Drummond MD, Radha Avila MD, Alberto Perez MD, Teresa Quintero, ROLL TABLE OPERATOR, Tika Hernandez, ROLL TABLE OPERATOR, Mary Meléndez, ROLL TABLE OPERATOR, Cathleen Moran, SAIL FINISHER MACHINE, Abdirahman Bella, ROLL TABLE OPERATOR, Leslie Rao, ROLL TABLE OPERATOR, Madalyn Dixon, ROLL TABLE OPERATOR, Ro Bernard, ROLL TABLE OPERATOR, Carter Charles, ROLL TABLE OPERATOR, Mckayla Abraham PA-C, Eli Fu, DNP, Razia Figueroa, DNP, Keri Walker, ROLL TABLE OPERATOR, Sherrie Rea, ROLL TABLE OPERATOR, Moon Waldrop, ROLL TABLE OPERATOR, Ethel Soto, ROLL TABLE OPERATOR, Jazzy Javier, ROLL TABLE OPERATOR, Shelli Menon, ROLL TABLE OPERATOR [facility] IN-PATIENT SERVICE [facility] Progress Note 12/14/2021 2:34 PM Name: Tip Ansari Acct: [id number] Room: [address] [place] [address] Day: 1 Admit Date: 12/13/2021 6:34 PM [...] with weakness. He was directly admitted from [place] Dec 13 for the management of Septic embolism (HCC). Pt has used Heroin intermittently several years Presented to [facility] ED 12/11 with 2 day hx of [...] drug use. Drugs: Cocaine, Opiates , Marijuana ([place]), and Methamphetamines (Crystal Meth). He reports that [...] Net -300 ml Labs: Hematology: Recent Labs 12/13/21191312/13/21210512/14/21 0552 WBC -- 9.1 9.2 RBC -- 3.57* 3.69* HGB -- 10.1* 10.3* HCT -- 28.9* 30.8* MCV -- 81.0* 83.5 MCH -- 28.3 27.9 MCHC -- 34.9* 33.4 RDW -- 14.5* 14.7* PLT -- See Reflexed IPF Result 150 MPV -- NOT REPORTED 10.8 CRP 110.3* -- -- INR -- -- 1.2 DDIMER -- 2.63 -- Chemistry: Recent Labs 12/13/21191312/14/21 0552 NA 135 135 K 3.4* 3.6* CL 104 106 CO2 22 23 GLUCOSE 121* 111* BUN 9 13 CREATININE 0.56* 0.55* MG 1.9 -- ANIONGAP 9 6* LABGLOM >60 >60 GFRAA >60 >60 CALCIUM 7.4* 7.6* TROPHS <6 -- No results for input(s): PROT, LABALBU, LABA1C, B4GPELC, Y0FJRUM, FT4, TSH, AST, ALT, LDH, GGT, ALKPHOS, LABGGT, BILITOT, BILIDIR, AMMONIA, AMYLASE, LIPASE, LACTATE, CHOL, HDL, LDLCHOLESTEROL, CHOLHDLRATIO, TRIG, VLDL, FPU61DW, PHENYTOIN, PHENYF, URICACID, POCGLU in the last 72 hours. ABG: Lab Results Component Value Date PHART 7.380 12/16/2020 TFY4LLL 44.5 12/16/2020 PO2ART 94.4 12/16/2020 TQH1SDR 25.7 12/16/2020 NBEA NOT REPORTED 12/16/2020 PBEA 0.3 12/16/2020 [id number] 97.1 12/16/2020 FIO2 28 12/16/2020 Lab Results [...] was ordered by ID Outpatient GI follow-up hoist worker to help with outpatient rehab Replace [...] loss Fluid Accumulation: No significant fluid accumulation Transplant Immunologist Strength: Not Performed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 extended release [...] Barrios RN)1303 (Given - Provider: Sophia Bui, ANSELMO) potassium chloride 10 mEq/100 mL IVPB (Peripheral [...] Barrios RN)1303 (See Alternative - Provider: Sophia Bui RN) sodium chloride flush 0.9 % injection [...] to tolerate oral tablet. K Lab R [facility] ement Action 3.1 to 3.5 40 mEq [...] - Comment: Medication is not available in entire hospital [facility])1215 (Due) PRN Medication Order 05/04/2022 05/05/2022 05/06/2022 [...] mL/lumen 0943 (Not Given - Provider: Jason Sunshine RN - Reason: IV Fluid Infusing)2154 (Given - Provider: Razia Sampesel, RN) 0811 (Not Given - Provider: Jason Sunshine, ANSELMO - Reason: IV Fluid Infusing)2103 (Given - Provider: Teetee Rodrigez RN) 08 (Given - Provider: Ana Tiwari RN)2100 (Due) tigecycline (TYGACIL) 100 mg in sodium chloride 0.9 % 100 mL IVPB (COMPLETED) 100 mg, IntraVENous, at 100 mL/hr, Administer over 60 Minutes, ONCE, On 05/06/22 at 0700, For 1 dose 0723 (New Bag - Provider: Christy Chew RN)0823 (Stopped - Provider: Jsaon Sunshine, RN) tigecycline (TYGACIL) 50 mg in sodium chloride 0.9 % 100 mL IVPB (CANCELED) 50 mg, IntraVENous, at 100 mL/hr, Administer over 60 Minutes, EVERY 12 HOURS, First dose on 05/06/22 at 1900 1931 (New Bag - Provider: Razia Rivera RN)2051 (Stopped - Provider: Razia Rivera RN) 0614 (New Bag - Provider: Razia Rivera RN)07 (Stopped - Provider: Jason Sunshine, RN) PRN [...] used. 1605 (See Alternative - Provider: Jason Sunshine, ANSELMO) acetaminophen (TYLENOL) tablet 650 mg(Linked Group [...] withdrawl symptoms 1744 (Given - Provider: Jason Sunshine, RN) 0245 (Given - Provider: Razia Rivera, ANSELMO)1605 (Given - Provider: Jason Sunshine, RN)2103 (Given - Provider: Teetee Rodrigez, RN) 0105 (Given - Provider: Teetee Rodrigez, ANSELMO) magnesium sulfate 1000 mg in dextrose 5% [...] RN)1605 (See Alternative - Provider: Jason Sunshine, ANSELMO) ondansetron (ZOFRAN-ODT) disintegrating tablet 4 mg(Linked Group 2) 4 mg, Oral, EVERY 8 HOURS PRN, Starting on 05/06/22 at 0533, Until Discontinued, Nausea, Vomiting 0245 (Given - Provider: Razia Rivera, RN)1605 (Given - Provider: Jason Sunshine, ANSELMO) [...] Only to be given as IM injection. 2210 (Given - Provider: Teetee Rodrigez, ANSELMO) sodium chloride flush 0.9 % injection 10 mL 10 mL, IntraVENous, PRN, Starting on 05/06/22 at 0533, Until Discontinued, Line Care, After every IV line use 0752 (Given - Provider: Jason Sunshine, ANSELMO) Linked Groups Order Group 1: acetaminophen (TYLENOL) [...] med 10 mEq, IntraVENous, PRN, Starting on 05/06/22 [...] Oral, 2 times daily, First dose on Sat06/18/22 at 1215, Until Discontinued, Pls give 15 min before each dose of vanco 0435 (Given - Provider: Jennifer Robins RN)1701 (Given - Provider: Audra Astudillo RN) 0359 (Given - Provider: Raymond Doshi RN)1648 (Given - Provider: Audra Astudillo RN) 0451 (Given - Provider: Abi Ha RN)1645 (Due - Provider: Fahad Frances [facility]) enoxaparin (LOVENOX) injection 40 mg 40 mg, SubCUTAneous, DAILY, First dose on Sat06/16/22 at 0900, Until Discontinued, Indication of Use: Prophylaxis-DVT/PE 1015 (Given - Provider: Audra Astudillo RN - Comment: patient request) 0844 (Given - Provider: Audra Astudillo RN) 0956 (Given - Provider: Clement Granger, ANSELMO) fluconazole (DIFLUCAN) tablet 400 mg 400 mg, [...] Astudillo RN)2026 (Not Given - Provider: Raymond Doshi RN - Reason: Other) 0843 (Given - Provider: Audra Astudillo RN)2017 (Given - Provider: Abi Ha RN) 0914 (Not Given - Provider: Clement Granger RN - Reason: IV Fluid Infusing)2100 (Due) vancomycin (VANCOCIN) 1250 mg in sodium chloride 0.9% 250 mL IVPB 1,250 mg (15.1 mg/kg), IntraVENous, at 166.7 mL/hr, Administer over 90 Minutes, EVERY 12 HOURS, First dose on Sat06/18/22 at 1230 0453 (New Bag - Provider: Jennifer Robins RN)0644 (Stopped - Provider: Jennifer Robins RN)1756 (New Bag - Provider: Audra Astudillo RN)1934 (Stopped - Provider: Raymond Doshi RN) 0503 (New Bag - Provider: Raymond Doshi RN)0642 (Stopped - Provider: Raymond Doshi RN)1730 (New Bag - Provider: Audra Astudillo RN)1900 (Stopped - Provider: Abi Ha RN)1941 (Stopped - Provider: Abi Ha RN) 0536 (New Bag - Provider: Abi Ha RN)0911 (Stopped - Provider: Clement Granger, ANSELMO)1700 (Due - Provider: Tonio Pendleton [facility]) vancomycin (VANCOCIN) intermittent dosing (placeholder) PRN Medication [...] frequent line interruptions/ long duration, Starting on Sat06/16/22 at 0239, For piggyback infusion, administer at [...] Rectal, EVERY 6 HOURS PRN, Starting on Sat06/16/22 at 0239, Until Discontinued, Pain Mild (1-3), [...] BE BASED ON THE PRIMARY CLINICAL RECORDS. [facility]. provides no warranty or guarantee of the accuracy or completeness of information in this document.
[2025-07-01 12:47] LABS: Alanine Aminotransferase 238 U/L (16-63); Albumin Globulin Ratio 0.8; Albumin Level 3.7 g/dL (3.4-5.0); Alkaline Phosphatase 111 U/L (46-116); Anion Gap 11.1; Aspartate Amino Transferase 155 U/L (15-37); Blood Urea Nitrogen 10.0 mg/dL (7.0-18.0); Calcium 9.3 mg/dL (8.5-10.1); Carbon Dioxide 28.0 mmol/L (21.0-32.0); Chloride 106 mmol/L (98-107); Estimated GFR (African America >60 (>=60 mL/min/1.73m^2); Estimated GFR (Non-African Ame >60 (>=60 mL/min/1.73m^2); Free T3 3.08 pg/mL (2.18-3.98); Globulin 4.4 g/dL; Glucose 92 mg/dL (74-106); Potassium 4.1 mmol/L (3.5-5.1); Sodium 141 mmol/L (136-145); Thyroid Stimulating Hormone 1.539 uIU/mL (0.358-3.740); Total Protein 8.1 g/dL (6.4-8.2)
== END 2025-07-01 10:39 | disposition home or self-care (01) ==
PROVIDERS: PCP Family Medicine; Visit Provider Family Medicine
DX: R74.8 Abnormal levels of other serum enzymes (principal); R79.89 Other specified abnormal findings of blood chemistry
CPT/HCPCS: 36415; 76705; 80053; 84436; 84443; 84481; 86376; 86800

== ENCOUNTER 2025-07-19 16:19 | Outpatient (OUT) | payer OTHER, SELFPAY ==
--- OUTSIDE RECORDS SUMMARY | 2025-05-26 05:30 | XMS_ITS ---
Author Organization [facility] in [place] Address [address] [place] [address] Care Team Providers Care Supply Aide Name Role Phone Nathanael Baxter Primary Care Provider [phone] Allergies Allergen (clinical drug ingredient) Drug/Non Drug Allergy documented on EMR Reaction Allergy Type Onset Date Status Penicillin Unknown Drug Allergy Active vancomycin Vancomycin Red Man Syndrome Drug Allergy Active REASON FOR VISIT Establish care- hasn't seen primary care in a long time, Gets suboxone from an online doctor- Bolder Lashon, Has f/u with [place] [facility] on Saturday- f/u from [facility] Admit, Medical records sending report over Medications Medication SIG (Take, Route, Frequency, Duration) Notes Start Date End Date Status Suboxone Active Social History Tobacco Use: Social History Observation Description Date Details (start date - stop date) Former Smoker NA - NA Tobacco Control (Standard) Question Answer Notes Tobacco use: Former smoker AUDIT-C (Standard) Question Answer Notes Did you have a drink containing alcohol in the p ast year? No Points 0 Interpretation Negative Problems Problem Type SNOMED Code ICD Code Onset Dates Problem Status W/U Status Risk Notes Problem Asthma (318772503) Asthma (J45.909) Active confirmed Problem COPD - Chronic obstructive pulmonary disease (95989789) COPD (chronic obstructive pulmonary disease) (J44.9) Active confirmed Problem Hepatitis (483536512) Hepatitis (K75.9) Active confirmed Problem Endocarditis (11030379) Endocarditis (I38) Active confirmed Problem Hypothyroidism (10904261) Hypothyroidism (E03.9) Active confirmed Problem Hepatitis B (03883515) Hepatitis B (B19.10) Active confirmed Problem Well adult (663186776) Well adult (Z00.00) Active confirmed Vital Signs Blood pressure systolic 124 mm Hg 05/26/20 25 Blood pressure diastolic 86 mm Hg 025 Height 73 in 05/26/2025 Weight 167.8 lbs 05/26/2025 BMI 22.14 kg/m2 05/26/2025 Encounters Encounter Location Date Provider Diagnosis [facility] [address] [place] [address] 05/26/2025 Nathanael Baxter Well adult Z00.0 0 Assessments Encounter Date Diagnosis (ICD Code) Assessment Notes Treatment Notes Treatment Clinical Notes Section Notes 05/26/2025 Well adult (ICD-10 - Z00.00) Plan Of Treatment Pending Test Test Name Order Date HEMOGLOBIN A1C (GLYCO) 05/26/2025 LIPID PANEL (CHOL/TRIG/HDL/LDL) 05/26/20 25 High Sensitivity Troponin 05/26/2025 BNP 05/26/2025 THYROID PANEL (T4/TSH/FREE T3) 5 PSA, SCREENING 05/26/2025 CMP (COMP MET SOSA) w/eGFR CKD-EPI 2024 CBC WITH DIFF 05/26/2025 Progress Notes * Olegario CADENAIsaiOB:[birth year] (45 yo M)Acc No.[id number]:05/26/2025 New Patient Patient: Tip TERRELL Provider: Michela Baxter ([facility])MD :1980 A ge:45 Y S ex:Male Date:05/26/2025 Address:[address] [place], [place] [id number] Check In:08:55 AM ESTCheck O ut:10:14 AM EST Subjective: * Chief Complaints: * E stablish care- hasn't seen primary care in a long timeGets suboxone from an online doctor- [facility]older AppHas f/u with [place] [facility] on Saturday- f/u from [facility] AdmitMedical records sending report over * HPI: D epression Screening: PHQ-2 (2015 Edition) L ittle interest or pleasure in doing things??Not at all F eeling down, depressed, or hopeless? N ot at all T otal Score 0 Had dizziness - worse with s tanding - had near syncope ging to the - + Trop - getting stress test. * ROS: E ENT: hearing changes d enies. v isual changes d enies.?non-healing mouth sores d enies. s wollen glands or neck lumps d enies. h oarseness d enies. s ore throat d enies. d ifficulty swallowing d enies. n ose bleeds d enies. n mauricio congestion d enies. e ar ache d enies. e ar discharge?denies. r inging in ears d enies. l ight sensitivity d enies. e ye pain d enies. b lurring d enies. e ye irritation d enies. d ouble vision d enies.?vision loss d enies. G eneral/Constitutional: Sweats: D enies. F atigue d enies. S leep problems d enies. A norexia d enies. M alaise d enies. W eight loss d enies.?Fatigue or Weakness d enies. F ever or Chills d enies. C ardiovascular: Shortness of Breath w/lying flat d enies. L ightheadedness/dizziness d enies. C hest tightness/ heavy pressure d enies. S welling of legs, ankles, or feet d enies. W aking up with shortness of breath d enies. C hest pain denies. P alpitations d enies. W eight gain d enies. R espiratory: Chronic or frequent cough d enies. C oughing up blood?denies. D ifficulty breathing d enies. P roductive cough d enies. S noring?denies. S hortness of breath that awakens from sleep (PND) d enies. C hest pain d enies. S putum production d enies. W heezing d enies. M usculoskeletal: Joint pain d enies. J oint Fluid d enies. B ack pain d enies. K nee pain d enies. N caitlin pain d enies. J oint Stiffness d enies. M uscle cramps d enies. W eakness of muscles d enies. A rthritis d enies. M uscle aches d enies. P ain in shoulder(s) d enies. S wollen joints d enies. * Active Problem List J45.909 Asthma Modified On:05/26/2025U Status:confirmed J44.9 COPD (chronic obstru ctive pulmonary disease) Modified On:05/26/2025U Status:confirmed E03.9 Hypothyroidism Modified On:05/26/2025U Status:confirmed K75.9 Hepatitis Modified On:05/26/2025 Status:confirmed B19.10 Hepatitis B Modified On:05/26/2025 Status:confirmed I38 Endocarditis Modified On:05/26/2025 Status:confirmed I34.0 MR (mitral regurgita tion) Modified On:06/21/2022U Status:confirmed I07.1 TR (tricuspid regurg itation) Modified On:04/10/2023U Status:confirmed Z00.00 Well adult Modified On:05/26/2025 Status:confirmed * Medical History: * Surgical History: A PPENDECTOMY Left pinky tendon Left achilles tendon repair Tubes in ears * Hospitalization/Major Diagno stic Procedure: B P elevated- troponin levels elevated- [facility] 05/14/25 * Family History: F ather: alive, Alcoholism. M other: alive, Skin/nose cancer, diagnosed with Other malignant neoplasm of unspecified site. B rother(s): alive. S ister(s): alive, Thyroid issues. M aternal Grandfather: Stroke. 1 brother(s) , 1 sister(s) . 1 daughter(s) . . * Social History: T obacco Use: T obacco Control (Standard) T obacco use: F ormer smoker D rug/Alcohol: A ADDIE-C (Standard) D id you have a drink containing alcohol in the past year? N o P oints 0 I nterpretation N egative * Medications: T akingSuboxone Medication List reviewed and reconciled with the patientTaking Suboxone Medication List reviewed and reconciled with the patient * Allergies: P enicillin: AllergyVancomycin: Red Man Syndrome - Allergyno[Allergies Verified] Objective: * Vitals: W t:167.8lbs, Ht: 73 in, BP:124/86mm Hg, BMI:22.14Index, Ht-cm: 185.42 cm, Wt-k.11 kg. * Examination: P hysical Exam: GENERAL: w ell developed, well nourished, in no acute distress. HEAD: n ormocephalic/atraumatic. EYES: p upils equal, round and reactive to light, conjunctivae and sclerae normal. EARS: n o deformity or lesion of external ear, canals and TM appear normal bilaterally, TM's intact, not inflamed with normal light reflex, hearing grossly normal to conversational speech. NOSE: n o deformity, discharge, inflammation, or lesions.? MOUTH: m ucous membranes moist, normal oropharynx and posterior pharynx without lesions or exudates, tongue normal, dentition normal. NECK: n caitlin supple, no masses or palpable cervical nodes, trachea midline, thyroid without nodules, masses, tenderness, or enlargement. CHEST: n o chest wall deformity, no chest wall tenderness.? LUNGS: n ormal respiratory effort and clear to auscultation, no wheezes, rales, or rhonchi, good air exchange. CARDIO: r egular rate and rhythm, normal S1 and S2, nor murmur, rub, or gallop. PULSES: n ormal capillary refill. ABDOMEN: s oft, non-distended, non-tender, no masses. MUSCULOSKELETAL: n o deformity or scoliosis noted, normal range of motion, joints normal, no erythema, edema, effusion, or ecchymosis. EXTREMITY: n o clubbing, cyanosis, edema, or deformity with normal ROM in both upper and lower bilateral extremities. NEUROLOGIC: g rossly normal. SKIN: n o rashes, ulcerations, or suspicious lesions. LYMPH NODES: n o cervical adenopathy, nodes normal. MENTAL STATUS: a lert and oriented x3, normal mood and affect. Assessment: * Assessment: 1. W ell adult - Z00.00 (Primary) Plan: * Treatment: * Procedure Codes: * * Sign off status: Completed Visit Status: C HK (Check Out) true * Provider: Michela Baxter (JO)MD Date: 0 05/26/2025 Generated for Ashley duong/Christiano/Erasmitting on: 0 07/19/2025 04:24 PM EDT History and Physical Notes * HPI (History of Present Illness) Category Sub-Category Detail Notes Category Not es Depression Screening PHQ-2 (2015 Edition) Little interest or pleasure in doing things?: Not at all Had dizziness - worse with standing - had near syncope ging to the - + Trop - getting stress test Feeling down, depressed, or hopeless?: N ot at all Total Score: 0 Examination Category Sub-Category Detail Notes Category Not es Physical Exam GENERAL: well developed, well nourished, in no acute distress HEAD: normocephalic/atraum atic EYES: pupils equal, round and reactive to light, conjunctivae and sclerae normal EARS: no deformity or lesi on of external ear, canals and TM appear normal bilaterally, TM's intact, not inflamed with normal light reflex, hearing grossly normal to conversational speech NOSE: no deformity, discha rge, inflammation, or lesions MOUTH: mucous membranes [address], normal oropharynx and posterior pharynx without lesions or exudates, tongue normal, dentition normal NECK: neck supple, no mass es or palpable cervical nodes, trachea midline, thyroid without nodules, masses, tenderness, or enlargement CHEST: no chest wall deform ity, no chest wall tenderness LUNGS: normal respiratory e ffort and clear to auscultation, no wheezes, rales, or rhonchi, good air exchange CARDIO: regular rate and rhy thm, normal S1 and S2, nor murmur, rub, or gallop PULSES: normal capillary ref ill ABDOMEN: soft, non-distended, non-tender, no masses RECTAL: MUSCULOSKELETAL: no deformity or scol iosis noted, normal range of motion, joints normal, no erythema, edema, effusion, or ecchymosis EXTREMITY: no clubbing, cyanosi s, edema, or deformity with normal ROM in both upper and lower bilateral extremities NEUROLOGIC: grossly normal SKIN: no rashes, ulceratio ns, or suspicious lesions LYMPH NODES: no cervical adenopat hy, nodes normal MENTAL STATUS: alert and oriented x 3, normal mood and affect
--- OUTSIDE RECORDS SUMMARY | 2025-06-17 18:28 | XMS_ITS ---
Author Organization [facility] in [place] Address [address] [place] [address] Care Team Providers Care Head Of Insight Name Role Phone Nathanael Baxter Primary Care Provider [phone] REASON FOR VISIT review labs- Encounters Encounter Location Date Provider Diagnosis [facility] [address] [place] [address] 06/17/2025 Nathanael Baxter Abnormal thyroid blo od test R79.89 and Elevated liver enzymes R74.8 Assessments Encounter Date Diagnosis (ICD Code) Assessment Notes Treatment Notes Treatment Clinical Notes Section Notes 06/17/2025 Abnormal thyroid blood test (ICD-10 - R79.89) 06/17/2025 Elevated liver enzymes (ICD-10 - R74.8) Plan Of Treatment Pending Test Test Name Order Date CMP - Comprehensive Metabolic Panel 05/2025 US Liver 06/17/2025 US Pancreas 06/17/2025 US Gallbladder 06/17/2025 THYROID ANTIBODIES 06/17/2025 THYROID PANEL (T4/TSH/FREE T3) Progress Notes * Blanca CADENAsDOB:[birth year] (45 yo M)Acc No.[id number]:06/17/2025 Patient: Tip TERRELL :1980 A ge:45 Y S ex:Male Address:[address] [place] [address], [address] Subjective: * Chief Complaints: * R [place] labs- * Medical History: * Surgical History: * Hospitalization/Major Diagno stic Procedure: * Medications: Objective: * Vitals: * Physical Examination: Assessment: * Assessment: 1. A bnormal thyroid blood test - R79.89 (Primary) 2 . E levated liver enzymes - R74.8 Plan: * Treatment: 2. E levated liver enzymes L AB: CMP - Comprehensive Metabolic Panel I maging: US Liver I maging: US Pancreas I maging: US Gallbladder * Procedure Codes: * true * Date: Generated for Ashley duong/Christiano/eTransmitting on: 0 07/19/2025 04:24 PM EDT
--- OUTSIDE RECORDS SUMMARY | 2025-07-01 08:52 | XMS_ITS ---
Author Organization [facility] in [place] Address [address] [place] [address] Care Team Providers Care Medical Staff Services Coordinator Name Role Phone Nathanael Baxter Primary Care Provider [phone] REASON FOR VISIT US results Encounters Encounter Location Date Provider Diagnosis [facility] [address] [place] [address] 07/01/2025 Nathanael Baxter Plan Of Treatment No Information Progress Notes * Irma CADENAOB:[birth year] (45 yo M)Acc No.[id number]:07/01/2025 Patient: Jered TURCIOS Tip :1980 A ge:45 Y S ex:Male Address:[address] [place] [address], [address] * true * Date: Generated for Gilmai da/Fadariusg/eTransmitting on: 0 07/19/2025 04:23 PM EDT
--- OUTSIDE RECORDS SUMMARY | 2025-07-01 12:48 | XMS_ITS ---
Author Organization [facility] in [place] Address [address] [place] [address] Care Team Providers Care Water Filter Cleaner Name Role Phone Sahil Nathanael Primary Care Provider Reason For Referral Diagnosis 1 Hepatitis (K75.9) Referral Organization [facility] Referring Provider First Name Nathanael Referring Provider Last Name Sahil Referring Provider Speciality Family Med icine Referred Provider [facility], Gastroenterolog y Referred Provider Specialty Gastroentero logy Referral Priority Routine REASON FOR VISIT lab results- Gastro Referral Encounters Encounter Location Date Provider Diagnosis [id number] [place] [address] 07/01/2025 Nathanael Baxter Hepatitis K75.9 and Hepatitis B B19.10 Assessments Encounter Date Diagnosis (ICD Code) Assessment Notes Treatment Notes Treatment Clinical Notes Section Notes 07/01/2025 Hepatitis (ICD-10 - K75.9) 07/01/2025 Hepatitis B (ICD-10 - B19.10) Plan Of Treatment Referrals Referral Date Details 07/05/2025 07/05/2025, Gastroen terology [facility] Progress Notes * Blanca CADENAsDOB:[birth year] (45 yo M)Acc No.[id number]:07/01/2025 Patient: Tip TERRELL :1980 A ge:45 Y S ex:Male Address:[address] [place] [address], [address] Subjective: * Chief Complaints: * l ab results- Gastro Referral * Medical History: * Surgical History: * Hospitalization/Major Diagno stic Procedure: * Medications: Objective: * Vitals: * Physical Examination: Assessment: * Assessment: 1. H epatitis - K75.9 (Primary) 2 . H epatitis B - B19.10 Plan: * Treatment: * Procedure Codes: * true * Date: Generated for Gilmai ad/Christiano/eTransmitting on: 0 07/19/2025 04:24 PM EDT Consultation Request Notes Referral Date Referring Provider Referred Provider Not es 07/05/2025 Nathanael Baxter, Gastroenterology
--- OUTSIDE RECORDS SUMMARY | 2025-07-04 07:23 | XMS_ITS ---
Author Organization [facility] [place] Address [address] [place] [address] Care Team Providers Care Die Storage Worker Name Role Phone Mattguille Nathanael Primary Care Provider Reason For Referral Diagnosis 1 Hypothyroidism (E03. 9) Referral Organization [facility] Referring Provider First Name Nathanael Referring Provider Last Name Sahil [facility] icine Referred Provider Hilton Boyd Referred Provider Specialty Endocrinolog y Referral Priority Routine REASON FOR VISIT thyroid testing Encounters Encounter Location Date Provider Diagnosis [facility] [address] [place] [address] 07/04/2025 Nathanael Baxter Hypothyroidism E03.9 Assessments Encounter Date Diagnosis (ICD Code) Assessment Notes Treatment Notes Treatment Clinical Notes Section Notes 07/04/2025 Hypothyroidism (ICD-10 - E03.9) Plan Of Treatment Referrals Referral Date Details 07/06/2025 07[facility] * Blanca CADENAsDOB:[birth year] (45 yo M)Acc No.[id number]:07/04/2025 Patient: Blanca TERRELLs :1980 A ge:45 Y S ex:Male Address:[address] [place] [address], [address] Subjective: * Chief Complaints: * T hyroid testing * Medical History: * Surgical History: * Hospitalization/Major Diagno stic Procedure: * Medications: Objective: * Vitals: * Physical Examination: Assessment: * Assessment: 1. H ypothyroidism - E03.9 (Primary) Plan: * Treatment: * Procedure Codes: * true * Date: Generated for Ashley duong/Christiano/Ekta on: 0 07/19/2025 04:24 PM EDT Consultation Request Notes Referral Date Referring Provider Referred Provider Not es 07/06/2025 Nathanael Baxter Ahmad
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
--- OUTSIDE RECORDS SUMMARY | 2025-07-19 16:24 | XMS_ITS | Clinical Summary ---
Author Organization [facility] Address [address] [place] [address] Care Team Providers Care Pantograph Machine Operator Name Role Phone Brody Baxter MD Primary Care Provider [phone] Allergies Active Allergy Reactions Criticality Noted Date [...] Description 05/28/2025 2:40 PM EDT Office Visit [place] [address] [place] [address] Tyson Simpson CNP History of [...] COVID-19 Vaccine (1 - 2023-2 5 season) 2025 Influenza Vaccine (#1) 2025 Zoster Vaccines (1 [...] this topic Insurance [employer] Care Teams Pantograph Machine Operator Relationship Specialty Start Date End Date Brody Baxter MD [address] [place] [address] PCP - General Family Medicine 05/28/25
--- OUTSIDE RECORDS SUMMARY | 2025-07-19 16:24 | XMS_ITS | Patient Health Record ---
Author Organization [facility] [place] Address [address] [place] [address] Care Team Providers Care Outpatient Facility Physical Therapist Name Role Phone Nathanael Mccormack Primary Care Provider Allergies Allergen (clinical drug ingredient) Drug/Non Drug Allergy documented on EMR Reaction Allergy Type Onset Date Status Penicillin Unknown Drug Allergy Active vancomycin Vancomycin Red Man Syndrome Drug Allergy Active Results Component Value Reference Range Notes BNP Reviewed date:06/17/2025 10:29:18 PM Interpretation: Performing Lab: Notes/Report: [facility] , NT Pro B Type Natriuretic Pept 64.0 <=450.0 pg/mL Performing Lab: see note ML - [facility] LB CBC AUTO DIFF Reviewed date:06/17/2025 10:29:18 PM Interpretation: Performing Lab: Notes/Report: [facility] , White Blood Count 5.0 4.0-11.0 10 3/uL Red Blood Count 4.44 4.70-6.10 10 6/uL Hemoglobin 13.9 14.0-18.0 g/dL Hematocrit 39.6 42.0-54.0 % Mean Corpuscular Volume 89.2 80.0-94.0 fL Mean Corpuscular Hemoglobin 31.3 25.9-34.0 pg Mean Corpuscular HGB Conc 35.1 29.9-35.2 g/dL Red Cell Distribution Width 13.2 11.0-15.0 % Platelet Count 165 150-450 10 3/uL Mean Platelet Volume 9.2 9.5-13.5 fL Neutrophils Percent Auto 66.7 43.0-75.0 % Lymphocytes Percent Auto 21.6 20.5-60.0 % Monocytes Percent Auto 8.7 1.7-12.0 % Eosinophils Percent Auto 2.2 0.9-7.0 % Basophils Percent Auto 0.6 0.2-2.0 % Immature Granulocytes Pct Auto 0.2 0.0-0.5 % Neutrophils Absolute Auto 3.3 1.4-6.5 10 3/uL Lymphocytes Absolute Auto 1.1 1.2-3.8 10 3/uL Monocytes Absolute Auto 0.4 0.3-0.8 10 3/uL Eosinophils Absolute Auto 0.1 0.0-0.7 10 3/uL Basophils Absolute Auto 0.0 0.0-0.1 10 3/uL Immature Granulocytes Abs Auto 0.01 0.00-0.03 10 3/uL Performing Lab: see note ML - [facility] FREE T3 Reviewed date:06/17/2025 10:29:18 PM Interpretation: Performing Lab: Notes/Report: [facility] , Free T3 3.42 2.18-3.98 pg/mL Performing Lab: see note - [facility] LB GLYCOHEMOGLOBIN A1C Reviewed date:06/17/2025 10:29:18 PM Interpretation: Performing Lab: Notes/Report: [facility] , Glycohemoglobin A1C 4.8 4.5-6.2 % ADA THERAPEUTIC TARGET < 7.0 ACTION SUGGESTED ADA RECOMMENDED LIMIT 4.0 - 6.0 > 7.0 Estimated Average Glucose 91 Performing Lab: see note - [facility] LB LIPID PROFILE Reviewed date:06/17/2025 10:29:18 PM Interpretation: Performing Lab: Notes/Report: [facility] , Triglycerides 54 <=150 mg/dL Cholesterol 151 <=200 mg/dL HDL Cholesterol 45 40-60 mg/dL > or =60 mg/dl - LOW CARDIOVASCULAR RISK <40 mg/dl - HIGH CARDIOVASCULAR RISK LDL Cholesterol Calculated 95.2 >190 mg/dl VERY HIGH 160-189 mg/dl HIGH 100-129 mg/dl NEAR OR ABOVE OPTIMAL 130-159 mg/dl BORDERLINE HIGH <100 mg/dl OPTIMAL VLDL CHOLESTEROL 10.8 Chol HDL Ratio 3.4 4.4 - 7.1 AVERAGE RISK 3.3 - 4.4 LOW RISK 7.1 - 11.0 MODERATE RISK >11.0 HIGH RISK Performing Lab: see note ML - [facility] LB PROF 14(COMP METB) Reviewed date:06/17/2025 10:29:18 PM Interpretation: Performing Lab: Notes/Report: [facility] , Sodium 144 136-145 mmol/L Potassium 4.5 3.5-5.1 mmol/L Chloride 106 98-107 mmol/L Carbon Dioxide 28.6 21.0-32.0 mmol/L Anion Gap 13.9 Glucose 90 74-106 mg/dL Blood Urea Nitrogen 13.0 7.0-18.0 mg/dL Creatinine 0.95 0.70-1.30 mg/dL Estimated GFR ( Paulette >60 >=60 mL/min/1.73m 2 Estimated GFR (Non- Denia >60 >=60 mL/min/1.73m 2 BUN Creatinine Ratio 13.7 Calcium 9.3 8.5-10.1 mg/dL Bilirubin Total 0.8 0.2-1.0 mg/dL Aspartate Amino Transferase 110 15-37 U/L Alanine Aminotransferase 190 16-63 U/L Alkaline Phosphatase 91 46-116 U/L Total Protein 7.4 6.4-8.2 g/dL Albumin Level 3.4 3.4-5.0 g/dL Globulin 4.0 Albumin Globulin Ratio 0.9 Performing Lab: see note ML - [facility] LB PSA SCREENING Reviewed date:06/17/2025 10:29:18 PM Interpretation: Performing Lab: Notes/Report: [facility] , Prostate Specific Antigen Scrn 0.54 <=4.00 ng/mL Performing Lab: see note ML - [facility] LB T4 Reviewed date:06/17/2025 10:29:18 PM Interpretation: Performing Lab: Notes/Report: [facility] , T4 Thyroxine 12.70 4.50-12.10 ug/dL Performing Lab: see note - [facility] LB TSH Reviewed date:06/17/2025 10:29:18 PM Interpretation: Performing Lab: Notes/Report: [facility] , Thyroid Stimulating Hormone 1.435 0.358-3.740 uIU/mL Performing Lab: see note ML - [facility] LB Troponin I High Sensitivity Reviewed date:06/17/2025 10:29:18 PM Interpretation: Performing Lab: Notes/Report: [facility] , Troponin I High Sensitivity 8.1 4.0-76.1 pg/mL WITH OTHER DIAGNOSTIC AND CLINICAL INFORMATION. HAS BEEN CONFIRMED THE DECISION THRESHOLD FOR [place] NOTE: HIGH-SENSITIVITY TROPONIN ASSAY IS NOT INTENDED TO BE USED IN ISOLATION BUT SHOULD BE INTERPRETED IN CONJUNCTION PERCENTILE OF cTnI DISTRIBUTION IN A REFERENCE POPULATION, 99TH PERCENTILE = 76.2 PG/ML UNIVERSAL DEFINITION OF MYOCARDIAL INFARCTION. THE UPPER REFERENCE LIMIT (URL) OF TROPONIN, DEFINED THE 99TH DIAGNOSIS. CUT-OFF POINTS HAVE BEEN ESTABLISHED BASED ON THE FOURTH Performing Lab: see note ML - [facility] FREE T3 Reviewed date:07/01/2025 04:49:07 PM Interpretation: Performing Lab: Notes/Report: [facility] , Free T3 3.08 2.18-3.98 pg/mL Performing Lab: see note ML - [facility] PROF 14(COMP METB) Reviewed date:07/01/2025 04:49:07 PM Interpretation: Performing Lab: Notes/Report: [facility] , Sodium 141 136-145 mmol/L Potassium 4.1 3.5-5.1 mmol/L Chloride 106 98-107 mmol/L Carbon Dioxide 28.0 21.0-32.0 mmol/L Anion Gap 11.1 Glucose 92 74-106 mg/dL Blood Urea Nitrogen 10.0 7.0-18.0 mg/dL Creatinine 0.97 0.70-1.30 mg/dL Estimated GFR ( Paulette >60 >=60 mL/min/1.73m 2 Estimated GFR (Non- Denia >60 >=60 mL/min/1.73m 2 BUN Creatinine Ratio 10.3 Calcium 9.3 8.5-10.1 mg/dL Bilirubin Total 1.7 0.2-1.0 mg/dL Aspartate Amino Transferase 155 15-37 U/L Alanine Aminotransferase 238 16-63 U/L Alkaline Phosphatase 111 46-116 U/L Total Protein 8.1 6.4-8.2 g/dL Albumin Level 3.7 3.4-5.0 g/dL Globulin 4.4 Albumin Globulin Ratio 0.8 Performing Lab: see note ML - The [facility] LB T4 Reviewed date:07/01/2025 04:49:07 PM Interpretation: Performing Lab: Notes/Report: [facility] , T4 Thyroxine 13.30 4.50-12.10 ug/dL Performing Lab: see note ML - [facility] LB THYROID ANTIBODIES Reviewed date:07/04/2025 11:27:16 AM Interpretation: Performing Lab: Notes/Report: [facility] , Thyroid Peroxidase (TPO) Ab 37 0-34 IU/mL Thyroglobulin Antibody <1.0 0.0-0.9 IU/mL disease or autoimmunity will have positive TgAb levels up four percent of individuals without evidence of thyroid antibodies may not be pathogenic nor diagnostic, especially General Utility Maintenance Repairer: Darryl Craft PhD, Phone: [phone] Performed at: [facility] It should be noted that the presence of thyroglobulin to 4 IU/mL. [address] [place] [address] [phone] Thyroglobulin Antibody measured by [employer] at very low levels. The assay antenna machine operator has found that Methodology Performing Lab: see note - [facility] LB TSH Reviewed date:07/01/2025 04:49:07 PM Interpretation: Performing Lab: Notes/Report: [facility] , Thyroid Stimulating Hormone 1.539 0.358-3.740 uIU/mL Performing Lab: see note ML - [facility] LB US right upper quadrant Reviewed date:07/01/2025 12:52:52 PM Interpretation: Performing Lab: Notes/Report: Source Facility: [facility] [place] [address] [place] [address] Ultrasound Report Signed Patient: TIP CADENA MR#: [id number] : 1980 Acct:[id number] Age/Sex: 45 / M ADM Date: 07/01/25 Loc: US Attending Dr: Brody Mccormack M.D. Ordering Physician: Brody Mccormack M.D. Date of Service: 07/01/25 Procedure(s): US right upper quadrant Accession Number(s): [id number] cc: Brody Mccormack M.D. [place] [address] Patient Name: TIP CADENA MRN: [facility]:[id number] date: 1980 Sex: M Assigned Patient Location: US Current Patient Location: US Accession/Order Number: [id number] Exam Date: 07/01/2025 12:07 Report Date: 07/01/2025 12:08 At the request of: BRODY MCCORMACK MD Procedure: US right upper quadrant Ultrasound of the right upper quadrant INDICATION: Elevated liver enzymes COMPARISON: None FINDINGS: Liver is unremarkable size and echogenicity. Normal hepatopedal flow. Gallbladder is unremarkable. Wall thickness 1.4 mm. Common bile duct 1.4 mm. Pancreas grossly unremarkable as visualized. Right kidney is without hydronephrosis measuring 8.9 cm respectively. US/US right upper quadrant IMPRESSION: Unremarkable ultrasound upper quadrant. Impression dictated by: Jorge Sultana M.D. 07/01/2025 12:08 PM Dictation Location: [place] [address] Electronically authenticated by: [id number] Y Date: 07/01/2025 12:08 Dictated By: Jorge Sultana M.D. Signed By: 07/01/25 1211 DD/ 1208 TD/TT: Certified Maintenance Welder: [place] [address] Ultrasound Report Signed Patient: TIP CADENA MR#: [id number] : 1980 Acct:[id number] Age/Sex: 45 / M ADM Date: 07/01/25 Loc: US Attending Dr: Kyrie Mccormack M.D. Ordering Physician: Brody Mccormack M.D. Date of Service: 07/01/25 Procedure(s): US rig ht upper quadrant Accession Number(s): [id number] cc: Brody Mccormack M.D. [address] [address] Patient Name: TIP CADENA MRN: [id number] date: 1980 Sex: M Assigned Patient Location: US Current Patient Location: US Accession/Order Number: [id number] Exam Date: 07/01/2025 12:07 Report Date: 07/01/2025 12:08 At the request of: BRODY MCCORMACK MD Procedure: US right upper quadrant Ultrasound of the right upper quadrant INDICATION: Elevated liver enzymes COMPARISON: None FINDINGS: Liver is unremarkable size and echogenicity. Normal hepatopedal flow. Gallbladder is unremarkable. Wall thickness 1.4 mm. Common bile duct 1.4 mm. Pancreas grossly unremarkable as visualized. Right kidney is without hydronephrosis measuring 8.9 cm respectively. US/US right upper quadrant IMPRESSION: Unremarkable ultrasound upper quadrant. Impression dictated by: Jorge Sultana M.D. 07/01/2025 12:08 PM Dictation Location: [place] [address] Electronically authenticated by: [id number] Y Date: 07/01/2025 12:08 Dictated By: Jorge Sultana M.D. Signed By: 07/01/25 1211 DD/ 1208 TD/TT: Certified Maintenance Welder: Reason For Referral Diagnosis 1 Hepatitis (K75.9) Referral Organization [facility] Referring Provider First Name Nathanael Referring Provider Last Name [facility] Referring Provider [facility] Referred Provider [facility], Gastroenterolog y Referred Provider Specialty Gastroentero logy Referral Priority Routine Diagnosis 1 Hypothyroidism (E03. 9) Referral Organization [facility] Referring Provider First Name [facility] Referring Provider Last Name [facility] Referring Provider [facility] Referred Provider Hilton Boyd Referred Provider Specialty Endocrinolog y Referral Priority Routine Medications Medication SIG (Take, Route, Frequency, Duration) [...] Status W/U Status Risk Notes Problem Asthma (759477976) Asthma (J45.909) Active confirmed Problem COPD - Chronic obstructive pulmonary disease (41937942) COPD (chronic obstructive pulmonary disease) (J44.9) Active confirmed Problem Hypothyroidism (16528266) Hypothyroidism (E03.9) Active confirmed Problem Mitral valve disorder (05261243) MR (mitral regurgitation) (I34.0) Active confirmed Problem Tricuspid valve disorder (39272802) TR (tricuspid regurgitation) (I07.1) Active confirmed Problem Well adult (343441678) Well adult (Z00.00) Active confirmed Problem Hepatitis (064609361) Hepatitis (K75.9) Active confirmed Problem Hepatitis B (51788183) Hepatitis B (B19.10) Active confirmed Problem Endocarditis (74815946) Endocarditis (I38) Active confirmed Vital Signs Blood pressure diastolic 86 mm Hg 05/26/2025 Height 73 in 05/26/2025 Blood pressure systolic 124 mm Hg 05/26/2025 Weight 167.8 lbs 05/26/2025 BMI 22.14 kg/m2 05/26/2025 Encounters Encounter Location Date Provider Diagnosis [address] [address] 06/17/2025 Nathanael Hoy Abnormal thyroid blo od test R79.89 and Elevated liver enzymes R74.[address] [address] 07/01/2025 Nathanael Hoy [address] [address] 07/01/2025 Nathanael Hoy Hepatitis K75.9 and Hepatitis B B19.[address] [address] 07/04/2025 Nathanael Hoy Hypothyroidism E03.[address] [address] 05/26/2025 Nathanael Hoy Well adult Z00.00 Assessments Encounter Date Diagnosis (ICD Code) Assessment Notes Treatment Notes Treatment Clinical Notes Section Notes 05/26/2025 Well adult (ICD-10 - Z00.00) 06/17/2025 Abnormal thyroid blood test (ICD-10 - R79.89) 06/17/2025 Elevated liver enzymes (ICD-10 - R74.8) 07/01/2025 Hepatitis (ICD-10 - K75.9) 07/01/2025 Hepatitis B (ICD-10 - B19.10) 07/04/2025 Hypothyroidism (ICD-10 - E03.9) Plan Of Treatment Pending Test Test Name Order Date HEMOGLOBIN A1C (GLYCO) 05/26/2025 LIPID PANEL (CHOL/TRIG/HDL/LDL) 05/26/20 CMP - Comprehensive Metabolic Panel 05/2025 US Liver 06/17/2025 US Pancreas 06/17/2025 US Gallbladder 06/17/2025 High Sensitivity Troponin 05/26/2025 BNP 05/26/2025 THYROID ANTIBODIES 06/17/2025 THYROID PANEL (T4/TSH/FREE T3) THYROID PANEL (T4/TSH/FREE T3) PSA, SCREENING 05/26/2025 CMP (COMP MET SOSA) w/eGFR CKD-EPI 2024 CBC WITH DIFF 05/26/2025 Insurance Providers Payer Name Payer Address Payer Phone Subscriber Number Group Number Insured Name Patient Relationship to Insured Coverage Start Date Coverage End Date [employer] [place] [employer] [address] [address] [place] [address] [id number] Tip Cadena Self - patient is the insured 3 Medical (General) History Medical History History ICD Code Asthma J45.909 COPD (chronic obstructive pulmonary dise ase) J44.9 Endocarditis I38 Hypothyroidism E03.9 Hepatitis A B15.9 Hepatitis B B19.10 Surgical History Surgery Date(Month/Year) Tubes in ears Left achilles tendon repair Left pinky tendon APPENDECTOMY Hospitalization History Reason Date(Month/Year) BP elevated- troponin levels elevated- T [facility] 05/14/25
[2025-07-19 17:04] LABS: Hematocrit 41.9 % (42.0-54.0); Hemoglobin 14.5 g/dL (14.0-18.0); Immature Granulocytes Abs Auto 0.01 10^3/uL (0.00-0.03); Immature Granulocytes Pct Auto 0.2 % (0.0-0.5); Lymphocytes Absolute Auto 1.1 10^3/uL (1.2-3.8); Mean Corpuscular HGB Conc 34.6 g/dL (29.9-35.2); Mean Corpuscular Hemoglobin 31.0 pg (25.9-34.0); Mean Corpuscular Volume 89.7 fL (80.0-94.0); Platelet Count 149 10^3/uL (150-450); Red Blood Count 4.67 10^6/uL (4.70-6.10); White Blood Count 6.5 10^3/uL (4.0-11.0)
[2025-07-19 17:06] LABS: Alanine Aminotransferase 146 U/L (16-63); Albumin Globulin Ratio 0.9; Albumin Level 3.9 g/dL (3.4-5.0); Alkaline Phosphatase 94 U/L (46-116); Anion Gap 13.6; Aspartate Amino Transferase 84 U/L (15-37); Blood Urea Nitrogen 14.0 mg/dL (7.0-18.0); Calcium 9.2 mg/dL (8.5-10.1); Carbon Dioxide 28.3 mmol/L (21.0-32.0); Chloride 104 mmol/L (98-107); Estimated GFR (African America >60 (>=60 mL/min/1.73m^2); Estimated GFR (Non-African Ame >60 (>=60 mL/min/1.73m^2); Globulin 4.3 g/dL; Glucose 87 mg/dL (74-106); Potassium 3.9 mmol/L (3.5-5.1); Sodium 142 mmol/L (136-145); Total Protein 8.2 g/dL (6.4-8.2)
[2025-07-21 06:08] LABS: Hep A Ab, Total Negative (Negative)
== END 2025-07-19 16:20 | disposition home or self-care (01) ==
PROVIDERS: PCP Family Medicine
DX: R79.89 Other specified abnormal findings of blood chemistry (principal); Z87.898 Personal history of other specified conditions
CPT/HCPCS: 36415; 80053; 85025; 86317; 86704; 86708; 87340; 87389; 87522; 87902

== ENCOUNTER 2025-08-19 14:15 | Outpatient (OUT) | payer OTHER, SELFPAY ==
--- OUTSIDE RECORDS SUMMARY | 2025-08-19 14:34 | XMS_ITS | CCD ---
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 Testing for legal pu rposes should be confirmed by another method. To request confirmation of test result, please call the lab within 7 days of sample submission. [employer] EKG 12 LeadOrdered By: Alec Cheung on 06-16-2022 Atrial Rate 113 BPM [employer] Work Phone: P [place] 65 degrees [employer] Work Phone: P-R Interval 132 ms [employer] Work Phone: Q-T Interval 332 ms [employer] Work Phone: QRS Duration 80 ms [employer] Work Phone: QTc Calculation (Bazett) 455 ms [employer] Work Phone: R [place] 73 degrees MAURA GRIFFIN [employer] Phone: T [place]ul[place] 57 degrees MAURA [employer]NILA [employer] Phone: Ventricular Rate 113 BPM MAURA ZEPEDA [employer] Work Phone: MAURA GRIFFIN [employer] Phone: EKG 12 Leadon 06-16-2022 Sinus tachycardia Otherwise normal ECG When compared with ECG of 30-JAN-2022 08:47, No significant change was found [facility] STV MUSE Alec Cheung MD - 06/16/2022 Sinus tachycardia Otherwise normal ECG When compared with ECG of 30-JAN-2022 08:47, No significant change was found MAURA GRIFFIN [employer] Phone: Echocardiogram 3Don 06-16-20 Transthoracic Echocardiography Report (TTE) Patient Name COTY Date of Study 06/16/2022 TIP Plata Date of 1980 Gender Male Age 42 year(s) Race Room Number 430 Height: 73 inch, 185.42 cm Corporate ID [id number] Weight: 172 pounds, 78 kg # Patient Acct [id number] BSA: 2.02 m^2 BMI: 22.69 # kg/m^2 MR # [id number] [employer] Tanner Fam Interpreting Physician Alec Cheung Fellow Referring Nurse Practitioner Interpreting Referring Physician Beverly Flores Type of Study TTE procedure:2D Echocardiogram, Doppler, Color Doppler. Procedure Date Date: 06/16/2022 Start: 11:00 AM Study Location: [facility] Indications:Endocardi tis. History / Tech. [...] velocity:0.09 m/s Lateral Wall E' velocity:0.10 m/s PN [facility] - 06/16/2022 Transthoracic Echocardiography Report (TTE) Patient Name COTY Date of Study 06/16/2022 TIP Plata Date of 1980 Gender Male Age 42 year(s) Race Room Number 430 Height: 73 inch, 185.42 cm Corporate ID [id number] Weight: 172 pounds, 78 kg # Patient Acct [id number] BSA: 2.02 m^2 BMI: 22.69 # kg/m^2 MR # [id number] 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 Procedure Date Date: 06/16/2022 Start: 11:00 AM Study Location: [facility] Indications:Endocardi tis. History / Tech. [...] velocity:0.09 m/s Lateral Wall E' velocity:0.10 m/s [facility] Work Phone: [facility] Work Phone: HIV Screenon 06-16-2022 HIV Ag/Ab Non-Reactive NONREACTIVE [facility] Comment on above: No laboratory eviden ce of HIV infection. If acute HIV infection is suspected, consider testing for HIV-1 RNA. [facility] Lactate, Sepsison 06-16-2022 Lactic Acid, Sepsis, Whole Blood 1.6 mmol/L 0.5 - 1.9 mmol/L [facility] MRI CERVICAL SPINE W WO CONT RASTon 06-16-2022 No MRI evidence of discitis-osteomyeliti s or epidural abscess. Degenerative neural foraminal stenosis at C6-C7, on the left hand side. [facility] RIS CONSOLIDATED EXAMINATION: MRI OF THE CERVICAL [...] spinal canal stenosis or neural foraminal narrowing. [facility] CONSOLIDATED Richard Haas MD [...] at C6-C7, on the left hand side. [employer] Work Phone: [employer] Phone: MRI LUMBAR SPINE W WO CONTRA STon 06-16-2022 No MRI evidence of discitis-osteomyeliti s or epidural abscess. 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 [facility] RIS CONSOLIDATED EXAMINATION: MRI OF [...] zone. A lateralized disc bulge results in piul-kq-qcavofgy narrowing of the left neural foramen. L4-L5: There is no significant disc protrusion, spinal canal stenosis or neural foraminal narrowing. L5-S1: There is no significant disc protrusion, spinal canal stenosis or neural foraminal narrowing. [facility] RIS Richard Shane MD - [...] zone. A lateralized disc bulge results in icpz-li-jkwfnczi narrowing of the left neural foramen. L4-L5: There is no significant disc protrusion, spinal canal stenosis or neural foraminal narrowing. L5-S1: There is no significant disc protrusion, spinal canal stenosis or neural foraminal narrowing. IMPRESSION: No MRI evidence of discitis-osteomyeliti s or epidural abscess. 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 [employer] Work Phone: MRI LUMBAR SPINE Zulema Ramed By: Richard Haas on 06-16-2022 [employer] Work Phone: MRSA DNA Probe, Nasalon 08- MRSA, DNA, Nasal Negative NEGATIVE [employer] Comment on above: NEGATIVE: MRSA DNA n ot detected by nucleic acid amplification. Results should be used as an adjunct to nosocomial control efforts to identify patients needing enhanced precautions. The test is not intended to identify patients with staphylococcal infections. Results should not be used to guide or monitor treatment for MRSA infections. Specimen Description .NASAL SWAB [facility] No Panel Informationon 06-16 Radiology Study observation (narrative) [employer] Phone: [employer] Procalcitoninon 06-16-2022 Interpretation and review of laboratory results Abnormal [employer] Procalcitonin 0.21 ng/mL High NINF - 0.09 ng/mL [employer] Comment on above: Suspected Sepsis: <0.50 ng/mL [...] entered into the Change in Procalcitonin Calculator (www.ssnuie-kcg-kiemagztvg.com) to determine the patient's Mortality Risk Prognosis In healthy neonates, plasma Procalcitonin (PCT) concentrations increase gradually after , reaching peak values at about 24 hours of age then decrease to normal values below 0.5 ng/mL by 48-72 hours of age. [facility] Interpretation and review of laboratory results Abnormal [facility] Procalcitonin 0.2 ng/mL High NINF - 0.09 ng/mL [facility] Comment on above: Suspected Sepsis: <0.50 ng/mL [...] entered into the Change in Procalcitonin Calculator (www.ndezjn-fbe-tykreaetyy.LoraxAg) to determine the patient's Mortality Risk Prognosis In healthy neonates, plasma Procalcitonin (PCT) concentrations increase gradually after , reaching peak values at about 24 hours of age then decrease to normal values below 0.5 ng/mL by 48-72 hours of age. [facility] Protime-INRon 06-16-2022 INR Coag (Bld) [Relative time] 1.0 {INR} [facility] Comment on above: Therapeutic Range: Moderate Anticoagulant Intensity: INR = 2.0-3.0 High Anticoagulant Intensity: INR = 2.5-3.5 PT Coag (PPP) [Time] 10.5 s [facility] STREP SCREEN GROUP A THROATo n 06-16-2022 S. pyogenes Ag Ql (Throat) Negative NEGATIVE [facility] Comment on above: Rapid Strep A negati ve. A negative Rapid Group A Strep Screen result does not rule out the possibility of Group A Streptococci in the specimen. A Group A Strep DNA test is available upon request. Source .THROAT SWAB [facility] Sputum gram stainon 06-16-20 22 Direct Exam DUPLICATE ORDER [facility] Specimen Description .ASPIRATED SPUTUM [facility] Strep Pneumoniae Antigenon 0 06-16-2022 Source .URINE [facility] Strep pneumo Ag Negative [facility] Comment on above: Strep pneumoniae ant igen not detected [facility] Urinalysis with Reflex to Cu ltureon 06-16-2022 Bilirubin Urine Negative NEGATIVE [facility] Color, UA Yellow Yellow [facility] Glucose, Ur Negative NEGATIVE [facility] Ketones Ql (U) Negative NEGATIVE [facility] Leukocyte esterase Test strip Ql (U) Negative NEGATIVE [facility] Nitrite, Urine Negative NEGATIVE [facility] pH, UA 6.5 5 - 8 [facility] Protein, UA Negative NEGATIVE [facility] Specific [place], UA 1.021 1.005 - 1.03 [facility] Turbidity UA Clear Clear [facility] Urinalysis Comments Microscopic exam not performed based on chemical results unless requested in original order. [facility] Urine Hgb Negative NEGATIVE [facility] Urobilinogen, Urine Normal Normal [facility] Basic Metabolic Panelon Anion gap [Moles/Vol] 11 mmol/L 9 - 17 mmol/L [facility] Calcium [Mass/Vol] 9.9 mg/dL 8.6 - 10. 4 mg/dL [facility] Chloride [Moles/Vol] 101 mmol/L 98 - 10 7 mmol/L [facility] CO2 [Moles/Vol] 24 mmol/L 20 - 31 mmol/L [facility] Creatinine [Mass/Vol] 0.8 mg/dL 0.7 - 1.2 mg/dL [facility] GFR >60 60 - PI NF mL/min [facility] GFR Non- >60 60 - PINF mL/min [facility] GFR/1.73 sq M.predicted MDRD (S/P/Bld) [Vol rate/Area] [facility] Comment on above: Average GFR for 40-4 9 years old: 99 mL/min/1.73sq m Chronic Kidney Disease: <60 mL/min/1.73sq m Kidney failure: <15 mL/min/1.73sq m eGFR calculated using average adult body mass. Additional eGFR calculator available at: http://www.[employer]/multiple_crcl_2012.htm Glucose [Mass/Vol] 105 mg/dL High 70 - 99 mg/dL [facility] Interpretation and review of laboratory results Abnormal [facility] Potassium [Moles/Vol] 4.2 mmol/L 3.7 - 5.3 mmol/L [facility] Sodium [Moles/Vol] 136 mmol/L 135 - 144 mmol/L [facility] Urea nitrogen (BldV) [Mass/Vol] 15 mg/dL 6 - 20 mg/dL [facility] CBC with Auto Differentialon 06-15-2022 Absolute Eos # 0.27 GIDEON S [facility] Absolute Immature Granulocyte 0.04 [facility] Absolute Lymph # 1.20 [facility] Absolute Tama # 1.07 [facility] Basophils (Bld) [#/Vol] 0.05 10*3/uL [facility] Basophils/100 WBC (Bld) 1 % 0 - 2 % B [facility] Eosinophils/100 WBC (Bld) 3 % 1 - 4 % [facility] Hematocrit (Bld) [Volume fraction] 38.8 % Low 40.7 - 50.3 % [facility] Hemoglobin (Bld) [Mass/Vol] 12.9 g/dL Low 13 - 17 g/dL [facility] Immature granulocytes/100 WBC (Bld) 0 % 0 [facility] Interpretation and review of laboratory results Abnormal [facility] Lymphocytes/100 WBC (Bld) 11 % Low 24 - 43 % [facility] MCH (RBC) [Entitic mass] 27.9 pg 25. 2 - 33.5 pg [facility] MCHC (RBC) [Mass/Vol] 33.2 g/dL 28.4 - 34.8 g/dL [facility] MCV (RBC) [Entitic vol] 83.8 fL 82.6 - 102.9 fL [facility] Monocytes/100 WBC (Bld) 10 % 3 - 12 % B ON [facility] NRBC Automated 0.0 0.0 per 100 WBC [facility] Platelet distribution width (Bld) [Ratio] 18.5 % High 11.8 - 14.4 % [facility] Platelet mean volume (Bld) [Entitic vol] 9.8 fL 8.1 - 13.5 fL [facility] Platelets (Bld) [#/Vol] 224 10*3/uL [facility] RBC (Bld) [#/Vol] 4.63 10*6/uL 4.21 - 5.7 7 m/uL [facility] RBC (Bld) [#/Vol] ANISOCYTOSIS PRESENT [facility] Segmented neutrophils/100 WBC (Bld) 75 % High 36 - 65 % [facility] Segs Absolute 7.90 [facility] WBC (Bld) [#/Vol] 10.5 10*3/uL [facility] COVID-19, Rapidon 06-15-2022 SARS-CoV-2 (COVID-19) RNA CHARO+probe Ql (Unsp spec) Not detected Not Detected [facility] Comment on above: Rapid NAAT: The specimen [...] management decisions. Fact sheet for Healthcare Providers: https://www.fda.gov/media/146266/download Fact sheet for Patients: https://www.fda.gov/media/853689/download Methodology: Isothermal Nucleic Acid Amplification Specimen Description .NASOPHARYNGEAL SWAB [facility] CT CHEST PULMONARY EMBOLISM W CONTRASTon 06-15-2022 Addendum by Akanksha Santoro MD on 06/15/2022 10:18 PM EDT ADDENDUM: There is mediastinal lymphadenopathy best visualized in subcarinal location which are likely reactive to abnormalities within the lungs. [facility] Work Phone: No evidence of pulmonary embolism. [...] No acute bone or soft tissue abnormality. [facility] Akanksha Samuels MD - 06/15/2022 EXAMINATION: CTA [...] findings are most likely due to atelectasis. [employer] Work Phone: Radiology Study observation (narrative) MUARA DE ANDA [facility] [[email or web address]] [employer] Work Phone: CT CHEST PULMONARY EMBOLISM W CONTRASTOrdered By: Akanksha Santoro on 06-15-2022 [facility] Work Phone: Hepatic Function Panelon Albumin [Mass/Vol] 3.4 g/dL Low 3.5 - 5.2 g/dL [facility] [employer] Albumin/Globulin [Mass ratio] 0.8 {ratio} Low 1 - 2.5 [facility] [employer] ALP (Bld) [Catalytic activity/Vol] 85 U/L 40 - 129 U/L [facility] ALT [Catalytic activity/Vol] 22 U/L 5 - 41 U/L [facility] AST [Catalytic activity/Vol] 16 U/L NINF - 40 U/L [facility] Bilirubin [Mass/Vol] 0.41 mg/dL 0.3 - 1 .2 mg/dL [facility] Bilirubin, Indirect 0.26 mg/dL 0 - 1 mg/dL [facility] Bilirubin.indirect [Mass/Vol] 0.15 mg/dL NINF - 0.31 mg/dL [facility] Free PSA/Total PSA [Mass fraction] 7.5 g/dL 6.4 - 8.3 g/dL [facility] [employer] Interpretation and review of laboratory results Abnormal [facility] [employer] [facility] Lactate, Sepsison 06-15-2022 Lactic Acid, Sepsis, Whole Blood 1.0 mmol/L 0.5 - 1.9 mmol/L [facility] Lactic Acid, Sepsis, Whole Blood 1.6 mmol/L 0.5 - 1.9 mmol/L [facility]ITAL[facility] Sedimentation Rateon 022 Interpretation and review of laboratory results Abnormal [facility] Sed Rate 35 High [facility] [employer] Comment on above: ADDED ON [facility] Troponinon 06-15-2022 Troponin, High Sensitivity ng/L 0 - 22 ng/L [facility] Comment on above: High Sensitivity Troponin values cannot be compared with other Troponin methodologies. Patients with high levels of Biotin oral intake (i.e >5mg/day) may have falsely decreased Troponin levels. Samples collected within 8 hours of biotin intake may require additional information for diagnosis. [facility] Troponin, High Sensitivity ng/L 0 - 22 ng/L [facility] Comment on above: High Sensitivity Troponin values cannot be compared with other Troponin methodologies. Patients with high levels of Biotin oral intake (i.e >5mg/day) may have falsely decreased Troponin levels. Samples collected within 8 hours of biotin intake may require additional information for diagnosis. [facility] XR CHEST (2 VW)on 06-15-2022 Increased opacity in the right infrahilar region compared other studies which could represent a small area of atelectasis, pneumonia or scarring in this area. Radiographic follow-up may be helpful. [facility] CONSOLIDATED EXAMINATION: TWO XRAY VIEWS OF THE [...] cardiomediastinal silhouette and pulmonary vessels appear normal. [facility] CONSOLIDATED Dre Gonsalves MD - 06/15/2022 EXAMINATION: [...] this area. Radiographic follow-up may be helpful. [employer] Work Phone: Radiology Study observation (narrative) [employer] Work Phone: XR CHEST (2 VW)Ordered By: Soledad Gonsalves on 06-15-2022 [employer] Work Phone: CBC with Auto Differentialon 06-13-2022 Absolute Eos # 0.20 GIDEON S [employer] Absolute Immature Granulocyte 0.03 [facility]ITAL[facility] Zesty [facility] Absolute Lymph # 1.03 Low [facility] [employer] Absolute Tama # 0.91 [facility] Basophils (Bld) [#/Vol] 0.03 10*3/uL [facility] [employer] Basophils/100 WBC (Bld) 0 % 0 - 2 % B ON [facility] Eosinophils/100 WBC (Bld) 2 % 1 - 4 % [facility] [employer] Hematocrit (Bld) [Volume fraction] 38.5 % Low 40.7 - 50.3 % [facility] [employer] Hemoglobin (Bld) [Mass/Vol] 12.2 g/dL Low 13 - 17 g/dL [facility] [employer] Immature granulocytes/100 WBC (Bld) 0 % 0 [facility]ITAL[facility] Interpretation and review of laboratory results Abnormal [facility] [employer] Lymphocytes/100 WBC (Bld) 9 % Low 24 - 43 % [facility] [employer] MCH (RBC) [Entitic mass] 27.2 pg 25. 2 - 33.5 pg [facility] [employer] MCHC (RBC) [Mass/Vol] 31.7 g/dL 28.4 - 34.8 g/dL [facility] [employer] MCV (RBC) [Entitic vol] 85.9 fL 82.6 - 102.9 fL [facility]ITAL[facility] Ins[employer]ant Monocytes/100 WBC (Bld) 8 % 3 - 12 % B ON [facility] NRBC Automated 0.0 0.0 per 100 WBC [facility] Platelet distribution width (Bld) [Ratio] 18.5 % High 11.8 - 14.4 % [facility] Platelet mean volume (Bld) [Entitic vol] 9.3 fL 8.1 - 13.5 fL [facility] Platelets (Bld) [#/Vol] 181 10*3/uL [facility] RBC (Bld) [#/Vol] 4.48 10*6/uL 4.21 - 5.7 7 m/uL [facility] Segmented neutrophils/100 WBC (Bld) 81 % High 36 - 65 % [facility] Segs Absolute 9.54 High [facility] WBC (Bld) [#/Vol] 11.7 10*3/uL High [facility] CBC with Diffon 06-13-2022 Abs. Basophil 0.03 k/uL Normal 0.00-0.20 [facility] Comment on above: Performed By: #### C P, CDP #### [facility] [address] [place] [address] [place] [id number] Rn Er: Joelle Parker MD Abs.Imm.Granulocyte 0.03 k/uL Normal 0.00-0.30 [facility] Comment on above: Performed By: #### C P, CDP #### [address] [place] [address] Rn Er: Joelle Parker MD Abs.Neutrophil (Seg) 9.54 k/uL High 1.50-8.10 [facility] Comment on above: Performed By: #### C P, CDP #### [facility] [address] [place] [address] [place] [address] Rn Er: Joelle Parker MD Basophils/100 WBC (Bld) 0 % Normal 0-2 [facility] Comment on above: Performed By: #### C P, CDP #### [facility] [address] [place] [address] [place] [address] Rn Er: Joelle Parker MD Eosinophils (Bld) [#/Vol] 0.20 10*3/uL Normal 0.00-0.44 [facility] Comment on above: Performed By: #### C P, CDP #### [facility] [address] [place] [address] Dr. [place], [place] [id number] Rn Er: Joelle Parker MD Eosinophils/100 WBC (Bld) 2 % Normal 1-4 [facility] Comment on above: Performed By: #### C P, CDP #### [address] [place], [place] [address] Rn Er: Joelle Parker MD Erythrocyte distribution width (RBC) [Ratio] 18.5 % High 11.8-14.4 [facility] Comment on above: Performed By: #### C P, CDP #### [address] [place], [facility]83 Rn Er: Joelle Parker MD Hematocrit (Bld) [Volume fraction] 38.5 % Low 40.7-50.3 [facility] Comment on above: Performed By: #### C P, CDP #### [address] [place], [facility]83 Rn Er: Joelle Parker MD Hemoglobin (Bld) [Mass/Vol] 12.2 g/dL Low 13.0-17.0 [facility] Comment on above: Performed By: #### C P, CDP #### [address] [place], [place] [id number] Rn Er: Joelle Parker MD Immature granulocytes/100 WBC (Bld) 0 % Normal 0 [facility] Comment on above: Performed By: #### C P, CDP #### [address] [place], [place] [id number] Rn Er: Joelle Parker MD Lymphocytes (Bld) [#/Vol] 1.03 10*3/uL Low 1.10-3.70 [facility] Comment on above: Performed By: #### C P, CDP #### [facility] [address] [place] [address] Dr. [place], [place] [address] Rn Er: Joelle Parker MD Lymphocytes/100 WBC (Bld) 9 % Low 24-43 [facility] Comment on above: Performed By: #### C P, CDP #### [address] [place], [place] [address] Rn Er: Joelle Parker MD MCH (RBC) [Entitic mass] 27.2 pg Normal 25.2-33.5 [facility] Comment on above: Performed By: #### C P, CDP #### [address] [place], [place] [address] Rn Er: Joelle Parker MD MCHC (RBC) [Mass/Vol] 31.7 g/dL Normal 28.4-34.8 [facility] Comment on above: Performed By: #### C P, CDP #### [address] [place], [place] [address] Rn Er: Joelle Parker MD MCV (RBC) [Entitic vol] 85.9 fL Normal 82.6-102.9 [facility] Comment on above: Performed By: #### C P, CDP #### [address] [place], [facility]83 Rn Er: Joelle Parker MD Monocytes (Bld) [#/Vol] 0.91 10*3/uL Normal 0.10-1.20 [facility] Comment on above: Performed By: #### C P, CDP #### [address] [place], [place] [id number] Rn Er: Joelle Parker MD Monocytes/100 WBC (Bld) 8 % Normal 3-12 M [facility] Comment on above: Performed By: #### C P, CDP #### [facility] [address] [place], [place] [id number] Rn Er: Joelle Parker MD Neutrophil (Seg) 81 % High 36-65 [facility] Comment on above: Performed By: #### C P, CDP #### [facility] [address] Dr. [place], [place] [id number] Rn Er: Joelle Parker MD NRBC Automated 0.0 per 100 WBC Normal 0.0 [facility] Comment on above: Performed By: #### C P, CDP #### [address] [place], [place] [id number] Rn Er: Joelle Parker MD Platelet mean volume (Bld) [Entitic vol] 9.3 fL Normal 8.1-13.5 [facility] Comment on above: Performed By: #### C P, CDP #### [address] [place], [place] [id number] Rn Er: Joelle Parker MD Platelets (Bld) [#/Vol] 181 10*3/uL Normal 138-453 [facility] Comment on above: Performed By: #### C P, CDP #### [address] [place], [place] [id number] Rn Er: Joelle Parker MD RBC (Bld) [#/Vol] 4.48 10*6/uL Normal 4.21-5.77 [facility] Comment on above: Performed By: #### C P, CDP #### [address] [place], [place] [id number] Rn Er: Joelle Parker MD WBC (Bld) [#/Vol] 11.7 10*3/uL High 3.5-11.3 [facility] Comment on above: Performed By: #### C P, CDP #### [address] [place] [address] Rn Er: Joelle Parker MD Comp Metabolic Profon 2021 (cont.) Normal [facility] Comment on above: Result Comment: Aver age GFR for 40-49 years old: 99 mL/min/1.73sq m Chronic Kidney Disease: <60 mL/min/1.73sq m Kidney failure: <15 mL/min/1.73sq m eGFR calculated using average adult body mass. Additional eGFR calculator available at: http://www.[employer]/multiple_crcl_2012.htm Performed By: #### C P, CDP #### [facility] [address] [place] [address] Rn Er: Joelle Parker MD Albumin [Mass/Vol] 3.8 g/dL Normal 3.5-5.2 [facility] Comment on above: Performed By: #### C P, CDP #### [facility] [address] [place] [address] Dr. [place], [place] [id number] Rn Er: Joelle Parker MD Albumin/Glob Ratio 0.9 Low 1.0-2.5 [facility] Comment on above: Performed By: #### C P, CDP #### [facility] [address] [place], [place] [id number] Rn Er: Joelle Parker MD Alkaline Phos 93 U/L Normal 40-129 [facility] Comment on above: Performed By: #### C P, CDP #### [facility] [address] [place], [place] [id number] Rn Er: Joelle Parker MD ALT [Catalytic activity/Vol] 28 U/L Normal 5-41 [facility] Comment on above: Performed By: #### C P, CDP #### [facility] [address] [place], [place] [id number] Rn Er: Joelle Parker MD Anion gap [Moles/Vol] 11 mmol/L Normal 9-17 [facility] Comment on above: Performed By: #### C P, CDP #### [facility] [address] [place], [place] [id number] Rn Er: Joelle Parker MD AST [Catalytic activity/Vol] 19 U/L Normal <40 [facility] Comment on above: Performed By: #### C P, CDP #### [facility] [address] [place], [place] [id number] Rn Er: Joelle Parker MD Bilirubin [Mass/Vol] 0.39 mg/dL Normal 0.3-1.2 [facility] Comment on above: Performed By: #### C P, CDP #### [facility] [address] [place], [place] [id number] Rn Er: Joelle Parker MD BUN/CRE Ratio 18 Normal 9-20 [facility] Comment on above: Performed By: #### C P, CDP #### [facility] [address] [place], [place] [id number] Rn Er: Joelle Parker MD Calcium [Mass/Vol] 9.7 mg/dL Normal 8.6-10.4 [facility] Comment on above: Performed By: #### C P, CDP #### [facility] [address] [place], [place] [id number] Rn Er: Joelle Parker MD Chloride [Moles/Vol] 101 mmol/L Normal 98-107 [facility] Comment on above: Performed By: #### C P, CDP #### [facility] [address] [place], [place] [id number] Rn Er: Joelle Parker MD CO2 [Moles/Vol] 25 mmol/L Normal 20-31 [facility] Comment on above: Performed By: #### C P, CDP #### [facility] [address] [place], [place] [id number] Rn Er: Joelle Parker MD Creatinine [Mass/Vol] 0.85 mg/dL Normal 0.70-1.20 [facility] Comment on above: Performed By: #### C P, CDP #### [facility] [address] [place], [place] [phone] Rn Er: Joelle Parker MD GFR, Amer >60 Normal >60 [facility] Comment on above: Performed By: #### C P, CDP #### [facility] [address] [place], [place] [phone] Rn Er: Joelle Parker MD GFR,non Amer >60 Normal >60 [facility] Comment on above: Performed By: #### C P, CDP #### [facility] [address] [place], [place] [id number] Rn Er: Joelle Parker MD Glucose [Mass/Vol] 106 mg/dL High 70-99 [facility] Comment on above: Performed By: #### C P, CDP #### [facility] [address] [place], [place] [id number] Rn Er: Joelle Parker MD Potassium [Moles/Vol] 4.3 mmol/L Normal 3.7-5.3 [facility] Comment on above: Performed By: #### C P, CDP #### [facility] [address] [place], [place] [id number] Rn Er: Joelle Parker MD Protein [Mass/Vol] 8.2 g/dL Normal 6.4-8.3 [facility] Comment on above: Performed By: #### C P, CDP #### [facility] [address] [place], [place] [phone] Rn Er: Joelle Parker MD Sodium [Moles/Vol] 137 mmol/L Normal 135-144 [facility] Comment on above: Performed By: #### C P, CDP #### [facility] [address] [place], [place] [id number] Rn Er: Joelle Parker MD Staging: Normal [facility] Comment on above: Result Comment: Stag e 1: Some kidney damage normal GFR Stage 2: Mild kidney damage GFR 60-89 Stage 3: Moderate kidney damage GFR 30-59 Stage 4: Severe kidney damage GFR 15-29 Stage 5: Severe kidney damage GFR <15 ESRD - chronic treatment by dialysis or transplant Performed By: #### C P, CDP #### [facility] [address] [place], [place] [id number] Rn Er: Joelle Parker MD Urea nitrogen [Mass/Vol] 15 mg/dL Normal 6-20 [facility] Comment on above: Performed By: #### C P, CDP #### [facility] [address] [place] [id number] Rn Er: Joelle Parker MD Comprehensive Metabolic Pane [facility] 06-13-2022 Albumin [Mass/Vol] 3.8 g/dL 3.5 - 5.2 g/dL [facility] Albumin/Globulin [Mass ratio] 0.9 {ratio} Low 1 - 2.5 [facility] ALP (Bld) [Catalytic activity/Vol] 93 U/L 40 - 129 U/L [facility] ALT [Catalytic activity/Vol] 28 U/L 5 - 41 U/L [facility] Anion gap [Moles/Vol] 11 mmol/L 9 - 17 mmol/L [facility] AST [Catalytic activity/Vol] 19 U/L NINF - 40 U/L [facility] Bilirubin [Mass/Vol] 0.39 mg/dL 0.3 - 1 .2 mg/dL [facility] Calcium [Mass/Vol] 9.7 mg/dL 8.6 - 10. 4 mg/dL [facility] Chloride [Moles/Vol] 101 mmol/L 98 - 10 7 mmol/L [facility] CO2 [Moles/Vol] 25 mmol/L 20 - 31 mmol/L [facility] Creatinine [Mass/Vol] 0.85 mg/dL 0.7 - 1.2 mg/dL [facility] Free PSA/Total PSA [Mass fraction] 8.2 g/dL 6.4 - 8.3 g/dL [facility] GFR >60 60 - PI NF mL/min [facility] GFR Non- >60 60 - PINF mL/min [facility] Glucose [Mass/Vol] 106 mg/dL High 70 - 99 mg/dL [facility] Interpretation and review of laboratory results Abnormal [facility] Potassium [Moles/Vol] 4.3 mmol/L 3.7 - 5.3 mmol/L [facility] Sodium [Moles/Vol] 137 mmol/L 135 - 144 mmol/L [facility] Urea nitrogen (BldV) [Mass/Vol] 15 mg/dL 6 - 20 mg/dL [facility] Urea nitrogen/Creatinine (Bld) [Mass ratio] 18 9 - 20 [facility] Laboratory - Chemistry and C hemistry - challengeon 06-13-2022 GFR/1.73 sq M.predicted MDRD (S/P/Bld) [Vol rate/Area] [facility] Comment on above: Average GFR for 40-4 9 years old: 99 mL/min/1.73sq m Chronic Kidney Disease: <60 mL/min/1.73sq m Kidney failure: <15 mL/min/1.73sq m eGFR calculated using average adult body mass. Additional eGFR calculator available at: http://www.[employer]/multiple_crcl_2011.htm Stage 1: Some kidney damage normal GFR Stage 2: Mild kidney damage GFR 60-89 Stage 3: Moderate kidney damage GFR 30-59 Stage 4: Severe kidney damage GFR 15-29 Stage 5: Severe kidney damage GFR <15 ESRD - chronic treatment by dialysis or transplant Cult,Bloodon 05-22-2022 Cult,Blood Specimen Description .BLOOD Culture NO GROWTH 5 DAYS Report Status FINAL 05/22/2022 [facility] Comment on above: Performed By: #### B C #### [facility] [address] [place] [address] Rn Er: Joelle Parker MD Cult,Bloodon 05-21-2022 Cult,Blood Specimen Description .BLOOD Special Requests 10ML RIGHT HAND Culture POSITIVE Blood Culture DIRECT GRAM STAIN FROM BOTTLE: YEAST NATHANIEL ALBICANS (NOTE) Direct Gram Stain from bottle result called to and read back by: DR MORE @ [phone] ON [id number]. KEB Report Status FINAL 05/21/2022 Abnormal [facility] Comment on above: Performed By: #### B C #### [address] [place] [address] Rn Er: Joelle Parker MD Cult,Bloodon 05-11-2022 Cult,Blood Specimen Description .BLOOD Special Requests 20ML LEFT HAND Culture POSITIVE Blood Culture DIRECT GRAM STAIN FROM BOTTLE: YEAST NATHANIEL ALBICANS (NOTE) Direct Gram Stain from bottle result called to and read back by:BILLY FRANZ [facility] RN [id number] 05-09-22 RB Report Status FINAL 05/11/2022 Abnormal [facility] Comment on above: Performed By: #### B C #### [address] [place], [place] [id number] Rn Er: Joelle Parker MD Cult, Bloodon 05-10-2022 Cult, Blood Specimen Description .BLOOD Special Requests 20ML RIGHT HAND Culture NO GROWTH 5 DAYS Report Status FINAL 05/10/2022 Normal [facility] Comment on above: Performed By: #### B C #### [address] [place] [id number] Rn Er: Joelle Parker MD MRI ANKLE LEFT WO CONTRASTon 05-08-2022 1. No evidence of acute osteomyelitis. Irregularity along the posterosuperior process of the calcaneus is likely postsurgical. 2. Partial-thickness tearing of the insertional Achilles tendon involving approximately 1/3 of the tendon thickness. Moderate to advanced Achilles tendinopathy. [facility]SOL[facility] EXAMINATION: MRI OF [...] synovial process. The Lisfranc ligament is intact. [facility] Chau Lomax MD [...] tendon thickness. Moderate to advanced Achilles tendinopathy. [employer] Work Phone: MRI ANKLE LEFT WO CONTRASTOr dered By: Chau Lomax on 05-08-2022 [employer] Work Phone: Basic Metabolic Panel w/ Ref rebecca to MGon 05-07-2022 Anion gap [Moles/Vol] 11 mmol/L 9 - 17 mmol/L [employer] [facility] Calcium [Mass/Vol] 8.9 mg/dL 8.6 - 10. 4 mg/dL [employer] [facility] Chloride [Moles/Vol] 105 mmol/L 98 - 10 7 mmol/L [employer] [facility] CO2 [Moles/Vol] 21 mmol/L 20 - 31 mmol/L [facility] Creatinine [Mass/Vol] 0.62 mg/dL Low 0.70 - 1.20 mg/dL [employer] [facility] GFR >60 >60 mL/min [employer] [facility] GFR Non- >60 >60 mL/min [facility] GFR/1.73 sq M.predicted MDRD (S/P/Bld) [Vol rate/Area] [facility] Comment on above: Average GFR for 40-4 9 years old: 99 mL/min/1.73sq m Chronic Kidney Disease: <60 mL/min/1.73sq m Kidney failure: <15 mL/min/1.73sq m eGFR calculated using average adult body mass. Additional eGFR calculator available at: http://www.[employer].LoraxAg/multiple_crcl_2011.htm Glucose [Mass/Vol] 87 mg/dL 70 - 99 mg/dL [facility] Interpretation and review of laboratory results Abnormal [facility] Potassium [Moles/Vol] 4.2 mmol/L 3.7 - 5.3 mmol/L [facility] Sodium [Moles/Vol] 137 mmol/L 135 - 144 mmol/L [facility] Urea nitrogen (BldV) [Mass/Vol] 16 mg/dL 6 - 20 mg/dL [facility] Cult,Urineon 05-07-2022 Cult,Urine Specimen Description .CLEAN CATCH URINE Culture NO GROWTH Report Status FINAL 05/07/2022 Normal [facility] Comment on above: Performed By: #### B C #### [facility] [address] [place] [address] Rn Er: Joelle Parker MD MRI ANKLE LEFT WO CONTRASTon 05-07-2022 Radiology Study observation (narrative) [facility] Work Phone: C-Reactive Proteinon 022 CRP [Mass/Vol] 36.1 mg/L High 0.0 - 5.0 mg/L [facility] Interpretation and review of laboratory results Abnormal [facility] Microscopic Urinalysison - [facility] Bacteria, UA TRACE Abnormal None [facility] Epithelial Cells UA None [facility] Interpretation and review of laboratory results Abnormal [facility] Mucus, UA TRACE Abnormal None [facility] RBC, UA 0 TO 2 [facility] WBC, UA 0 TO 2 [facility] Sedimentation Rateon 022 Interpretation and review of laboratory results Abnormal [facility] Sed Rate 55 High [facility] Urinalysison 05-06-2022 Bilirubin Urine Negative NEGATIVE [facility] Color, UA Yellow Yellow [facility] Glucose, Ur Negative NEGATIVE [facility] Interpretation and review of laboratory results Abnormal [facility] Ketones Ql (U) Negative NEGATIVE [facility] Leukocyte esterase Test strip Ql (U) Negative NEGATIVE [facility] Nitrite, Urine Negative NEGATIVE [facility] pH, UA 6.5 [facility] Protein, UA Negative NEGATIVE [facility] Specific [place], UA <1.005 Low [facility] Turbidity UA Clear Clear [facility] Urine Hgb TRACE Abnormal NEGATIVE [facility] Urobilinogen, Urine Normal Normal [facility] Urinalysis, Routineon 2021 Bilirubin, SemiQt,Ur Negative Normal NEG [facility] Comment on above: Performed By: #### B C #### [facility] [address] [place] [address] Rn Er: Joelle Parker MD Blood, Urine TRACE Abnormal NEG [facility] Comment on above: Performed By: #### B C #### [facility] [address] [place] [address] Rn Er: Joelle Parker MD Clarity (U) Clear Normal CLEAR [facility] Comment on above: Performed By: #### B C #### [facility] [address] [place] [address] Rn Er: Joelle Parker MD Color (U) Yellow Normal YEL [facility] Comment on above: Performed By: #### B C #### [facility] [address] [place], [facility]83 Rn Er: Joelle Parker MD Glucose Ql (U) Negative Normal NEG [facility] Comment on above: Performed By: #### B C #### [address] [place] [address] Rn Er: Joelle Parker MD Ketones Ql (U) Negative Normal NEG [facility] Comment on above: Performed By: #### B C #### [facility] [address] [place] [address] Rn Er: Joelle Parker MD Leukocyte esterase Test strip Ql (U) Negative Normal NEG [facility] Comment on above: Performed By: #### B C #### [facility] [address] [place] [address] Rn Er: Joelle Parker MD Nitrite,Ur Negative Normal [facility] Comment on above: Performed By: #### B C #### [facility] [address] [place], [place] [id number] Rn Er: Joelle Parker MD PH,Ur 6.5 Normal 5.0-9.0 [facility] Comment on above: Performed By: #### B C #### [facility] [address] [place] [id number] Rn Er: Joelle Parker MD Protein Ql (U) Negative Normal NEG [facility] Comment on above: Performed By: #### B C #### [facility] [address] [place], [place] [id number] Rn Er: Joelle Parker MD Spec. [place],Ur <1.005 Low 1.010-1.020 [facility] Comment on above: Performed By: #### B C #### [facility] [address] [place] [address] Dr. [place], [place] [id number] Rn Er: Joelle Parker MD Urobilinogen,Ur Normal Normal NORM [facility] Comment on above: Performed By: #### B C #### [facility] [address] [place] [address] Dr. [place], [place] [id number] Rn Er: Joelle Parker MD Urinalysis,Microon 2 ----- Normal [facility] Comment on above: Performed By: #### B C #### [facility] [address] [place], [place] [id number] Rn Er: Joelle Parker MD Bacteria TRACE Abnormal NONE [facility] Comment on above: Performed By: #### B C #### [facility] [address] [place], [place] [id number] Rn Er: Joelle Parker MD Epithelial cells LM Ql (Urine sed) None Normal 0-5 [facility] Comment on above: Performed By: #### B C #### [facility] [address] [place], [place] [id number] Rn Er: Joelle Parker MD Mucus Strands TRACE Abnormal NONE [facility] Comment on above: Performed By: #### B C #### [facility] [address] [place] [address] Rn Er: Joelle Parker MD Urine RBC's 0 TO 2 Normal 0-2 [facility] Comment on above: Performed By: #### B C #### [facility] [address] [place] [address] Rn Er: Joelle Parker MD Urine WBC's 0 TO 2 Normal 0-5 [facility] Comment on above: Performed By: #### B C #### [facility] [address] [place] [address] Rn Er: Joelle Parker MD CBC with Auto Differentialon 05-05-2022 Absolute Eos # 0.03 [facility] Absolute Immature Granulocyte 0.06 [facility] Absolute Lymph # 0.87 Low [facility] Absolute Tama # 0.69 [facility] Basophils (Bld) [#/Vol] 0.04 10*3/uL [facility] Basophils/100 WBC (Bld) 0 % 0 - 2 % B [facility] Eosinophils/100 WBC (Bld) 0 % Low 1 - 4 % [facility] Hematocrit (Bld) [Volume fraction] 33.7 % Low 40.7 - 50.3 % [facility] Hemoglobin (Bld) [Mass/Vol] 10.6 g/dL Low 13.0 - 17.0 g/dL [facility] Immature granulocytes/100 WBC (Bld) 0 % 0 [facility] Interpretation and review of laboratory results Abnormal [facility] Lymphocytes/100 WBC (Bld) 7 % Low 24 - 43 % [facility] MCH (RBC) [Entitic mass] 26.0 pg 25. 2 - 33.5 pg [facility] MCHC (RBC) [Mass/Vol] 31.5 g/dL 28.4 - 34.8 g/dL [facility] MCV (RBC) [Entitic vol] 82.8 fL 82.6 - 102.9 fL [facility] Monocytes/100 WBC (Bld) 5 % 3 - 12 % B [facility] NRBC Automated 0.0 0.0 per 100 WBC [facility] Platelet distribution width (Bld) [Ratio] 15.7 % High 11.8 - 14.4 % [facility] Platelet mean volume (Bld) [Entitic vol] 8.9 fL 8.1 - 13.5 fL [facility] Platelets (Bld) [#/Vol] 196 10*3/uL [facility] RBC (Bld) [#/Vol] 4.07 10*6/uL Low 4.21 - 5.7 7 m/uL [facility] Segmented neutrophils/100 WBC (Bld) 88 % High 36 - 65 % [facility] Segs Absolute 11.77 High [facility] WBC (Bld) [#/Vol] 13.5 10*3/uL High [facility] CBC with Diffon 05-05-2022 Abs. Basophil 0.04 k/uL Normal 0.00-0.20 [facility] Comment on above: Performed By: #### C DP, CMPX #### [facility] [address] [place] [address] [place] [address] Rn Er: Joelle Parker MD Abs.Imm.Granulocyte 0.06 k/uL Normal 0.00-0.30 [facility] Comment on above: Performed By: #### C DP, CMPX #### [facility] [address] [place] [address] Rn Er: Joelle Parker MD Abs.Neutrophil (Seg) 11.77 k/uL High 1.50-8.10 [facility] Comment on above: Performed By: #### C DP, CMPX #### [facility] [address] [place] [address] Rn Er: Joelle Parker MD Basophils/100 WBC (Bld) 0 % Normal 0-2 [facility] Comment on above: Performed By: #### C DP, CMPX #### [facility] [address] [place] [address] Dr. [place], [place] [id number] Rn Er: Joelle Parker MD Eosinophils (Bld) [#/Vol] 0.03 10*3/uL Normal 0.00-0.44 [facility] Comment on above: Performed By: #### C DP, CMPX #### [address] [place], [place] [id number] Rn Er: Joelle Parker MD Eosinophils/100 WBC (Bld) 0 % Low 1-4 [facility] Comment on above: Performed By: #### C DP, CMPX #### [address] [place], [place] [id number] Rn Er: Joelle Parker MD Erythrocyte distribution width (RBC) [Ratio] 15.7 % High 11.8-14.4 [facility] Comment on above: Performed By: #### C DP, CMPX #### [address] [place], [place] [id number] Rn Er: Joelle Parker MD Hematocrit (Bld) [Volume fraction] 33.7 % Low 40.7-50.3 [facility] Comment on above: Performed By: #### C DP, CMPX #### [address] [place], [place] [id number] Rn Er: Joelle Parker MD Hemoglobin (Bld) [Mass/Vol] 10.6 g/dL Low 13.0-17.0 [facility] Comment on above: Performed By: #### C DP, CMPX #### [address] [place] [address] Rn Er: Joelle Parker MD Immature granulocytes/100 WBC (Bld) 0 % Normal 0 [facility] Comment on above: Performed By: #### C DP, CMPX #### [address] [place], [place] [id number] Rn Er: Joelle Parker MD Lymphocytes (Bld) [#/Vol] 0.87 10*3/uL Low 1.10-3.70 [facility] Comment on above: Performed By: #### C DP, CMPX #### [address] [place], [facility]83 Rn Er: Joelle Parker MD Lymphocytes/100 WBC (Bld) 7 % Low 24-43 [facility] Comment on above: Performed By: #### C DP, CMPX #### [address] [place], [facility]83 Rn Er: Joelle Parker MD MCH (RBC) [Entitic mass] 26.0 pg Normal 25.2-33.5 [facility] Comment on above: Performed By: #### C DP, CMPX #### [address] [place], [facility]83 Rn Er: Joelle Parker MD MCHC (RBC) [Mass/Vol] 31.5 g/dL Normal 28.4-34.8 [facility] Comment on above: Performed By: #### C DP, CMPX #### [address] [place], [place] [address] Rn Er: Joelle Parker MD MCV (RBC) [Entitic vol] 82.8 fL Normal 82.6-102.9 M [facility] Comment on above: Performed By: #### C DP, CMPX #### [address] [place] [address] Rn Er: Joelle Parker MD Monocytes (Bld) [#/Vol] 0.69 10*3/uL Normal 0.10-1.20 [facility] Comment on above: Performed By: #### C DP, CMPX #### [facility] [address] [place], [place] [id number] Rn Er: Joelle Parker MD Monocytes/100 WBC (Bld) 5 % Normal 3-12 [facility] Comment on above: Performed By: #### C DP, CMPX #### [facility] [address] [place], [place] [id number] Rn Er: Joelle Parker MD Neutrophil (Seg) 88 % High 36-65 [facility] Comment on above: Performed By: #### C DP, CMPX #### [facility] [address] [place], [place] [id number] Rn Er: Joelle Parker MD NRBC Automated 0.0 per 100 WBC Normal 0.0 [facility] Comment on above: Performed By: #### C DP, CMPX #### [address] [place], [facility]83 Rn Er: Joelle Parker MD Platelet mean volume (Bld) [Entitic vol] 8.9 fL Normal 8.1-13.5 [facility] Comment on above: Performed By: #### C DP, CMPX #### [address] [place], [facility]83 Rn Er: Joelle Parker MD Platelets (Bld) [#/Vol] 196 10*3/uL Normal 138-453 [facility] Comment on above: Performed By: #### C DP, CMPX #### [address] [place], [place] [id number] Rn Er: Joelle Parker MD RBC (Bld) [#/Vol] 4.07 10*6/uL Low 4.21-5.77 [facility] Comment on above: Performed By: #### C DP, CMPX #### [address] [place], [facility]83 Rn Er: Joelle Parker MD WBC (Bld) [#/Vol] 13.5 10*3/uL High 3.5-11.3 [facility] Comment on above: Performed By: #### C DP, CMPX #### [facility] [address] [place] [address] Rn Er: Joelle Parker MD CT ANKLE LEFT W [...] Erasmo Domínguez MD 05/05/22 Final result Normal [facility] Chronic erosive changes of the posterosuperior aspect of the calcaneus at the Achilles tendon insertion with superimposed acute erosions not excluded. 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 These findings may be sterile although septic bursitis and osteomyelitis cannot be excluded. No soft tissue gas. [facility] EXAMINATION: CT OF THE LEFT ANKLE [...] visualized aspects of the midfoot are unremarkable. [facility] Erasmo Domínguez MD - 05/05/2022 EXAMINATION: CT OF THE [...] cannot be excluded. No soft tissue gas. [employer] Work Phone: Radiology Study observation (narrative) [employer] Phone: CT ANKLE LEFT W CONTRASTOrde red By: Erasmo Domínguez on 05-05-2022 [employer] Work Phone: Comp Metabolic Pr/rfx MGon 0 05-05-2022 (cont.) Normal [facility] Comment on above: Result Comment: Aver age GFR for 40-49 years old: 99 mL/min/1.73sq m Chronic Kidney Disease: <60 mL/min/1.73sq m Kidney failure: <15 mL/min/1.73sq m eGFR calculated using average adult body mass. Additional eGFR calculator available at: http://www.OyaGen/multiple_crcl_2011.htm Performed By: #### C DP, CMPX #### [facility] [address] [place] [address] Rn Er: Joelle Parker MD Albumin/Glob Ratio 0.8 Low 1.0-2.5 [facility] Comment on above: Performed By: #### C DP, CMPX #### [facility] [address] [place], [place] [id number] Rn Er: Joelle Parker MD Alkaline Phos 82 U/L Normal 40-129 [facility] Comment on above: Performed By: #### C DP, CMPX #### [facility] [address] [place], [place] [id number] Rn Er: Joelle Parker MD BUN/CRE Ratio 10 Normal 9-20 [facility] Comment on above: Performed By: #### C DP, CMPX #### [facility] [address] [place], [place] [id number] Rn Er: Joelle Parker MD GFR, Amer >60 Normal >60 [facility] Comment on above: Performed By: #### C DP, CMPX #### [facility] [address] [place] [address] Rn Er: Joelle Parker MD GFR,non Amer >60 Normal >60 [facility] Comment on above: Performed By: #### C DP, CMPX #### [facility] [address] [place], [place] [id number] Rn Er: Joelle Parker MD Protein [Mass/Vol] 7.9 g/dL Normal 6.4-8.3 [facility] Comment on above: Performed By: #### C DP, CMPX #### [facility] [address] [place] [address] Rn Er: Joelle Parker MD Staging: Normal [facility] Comment on above: Result Comment: Stag e 1: Some kidney damage normal GFR Stage 2: Mild kidney damage GFR 60-89 Stage 3: Moderate kidney damage GFR 30-59 Stage 4: Severe kidney damage GFR 15-29 Stage 5: Severe kidney damage GFR <15 ESRD - chronic treatment by dialysis or transplant Performed By: #### C DP, CMPX #### [address] [place] [address] Rn Er: Joelle Parker MD Urea nitrogen [Mass/Vol] 7 mg/dL Normal 6-20 [facility] Comment on above: Performed By: #### C DP, CMPX #### [address] [place], [place] [id number] Rn Er: Joelle Parker MD Albumin [Mass/Vol] 3.4 g/dL Low 3.5-5.2 [facility] Comment on above: Performed By: #### C DP, CMPX #### [facility] [address] [place], [place] [id number] Rn Er: Joelle Parker MD ALT [Catalytic activity/Vol] 17 U/L Normal 5-41 [facility] Comment on above: Performed By: #### C DP, CMPX #### [facility] [address] [place] [address] Rn Er: Joelle Parker MD Anion gap [Moles/Vol] 9 mmol/L Normal 9-17 [facility] Comment on above: Performed By: #### C DP, CMPX #### [facility] [address] [place], [place] [id number] Rn Er: Joelle Parker MD AST [Catalytic activity/Vol] 15 U/L Normal <40 [facility] Comment on above: Performed By: #### C DP, CMPX #### [address] [place], [place] [id number] Rn Er: Joelle Parker MD Bilirubin [Mass/Vol] 0.53 mg/dL Normal 0.3-1.2 [facility] Comment on above: Performed By: #### C DP, CMPX #### [address] [place], [place] [id number] Rn Er: Joelle Parker MD Calcium [Mass/Vol] 9.1 mg/dL Normal 8.6-10.4 [facility] Comment on above: Performed By: #### C DP, CMPX #### [address] [place], [place] [id number] Rn Er: Joelle Parker MD Chloride [Moles/Vol] 100 mmol/L Normal 98-107 [facility] Comment on above: Performed By: #### C DP, CMPX #### [address] [place] [address] Rn Er: Joelle Parker MD CO2 [Moles/Vol] 25 mmol/L Normal 20-31 [facility] Comment on above: Performed By: #### C DP, CMPX #### [address] [place] [address] Rn Er: Joelle Parker MD Creatinine [Mass/Vol] 0.72 mg/dL Normal 0.70-1.20 [facility] Comment on above: Performed By: #### C DP, CMPX #### [address] [place] [address] Rn Er: Joelle Parker MD Glucose [Mass/Vol] 111 mg/dL High 70-99 [facility] Comment on above: Performed By: #### C DP, CMPX #### [facility] [address] [place] [address] Rn Er: Joelle Parker MD Potassium [Moles/Vol] 3.6 mmol/L Low 3.7-5.3 [facility] Comment on above: Performed By: #### C DP, CMPX #### [facility] [address] [place] [address] Rn Er: Joelle Parker MD Sodium [Moles/Vol] 134 mmol/L Low 135-144 [facility] Comment on above: Performed By: #### C DP, CMPX #### [facility] [address] [place] [address] Rn Er: Joelle Parker MD Comprehensive Metabolic Pane l w/ Reflex to MGon 05-05-2022 Albumin/Globulin [Mass ratio] 0.8 {ratio} Low [facility] ALP (Bld) [Catalytic activity/Vol] 82 U/L 40 - 129 U/L [facility] Free PSA/Total PSA [Mass fraction] 7.9 g/dL 6.4 - 8.3 g/dL [facility] GFR >60 >60 mL/min [facility] GFR Non- >60 >60 mL/min [facility] Interpretation and review of laboratory results Abnormal [facility] Urea nitrogen (BldV) [Mass/Vol] 7 mg/dL 6 - 20 mg/dL [facility] Urea nitrogen/Creatinine (Bld) [Mass ratio] 10 [facility] Laboratory - Chemistry and C hemistry - challengeon 05-05-2022 GFR/1.73 sq M.predicted MDRD (S/P/Bld) [Vol rate/Area] [facility] Comment on above: Average GFR for 40-4 9 years old: 99 mL/min/1.73sq m Chronic Kidney Disease: <60 mL/min/1.73sq m Kidney failure: <15 mL/min/1.73sq m eGFR calculated using average adult body mass. Additional eGFR calculator available at: http://www.OyaGen/multiple_crcl_2012.htm Stage 1: Some kidney damage normal GFR Stage 2: Mild kidney damage GFR 60-89 Stage 3: Moderate kidney damage GFR 30-59 Stage 4: Severe kidney damage GFR 15-29 Stage 5: Severe kidney damage GFR <15 ESRD - chronic treatment by dialysis or transplant Lactate, Sepsison 05-05-2022 Lactic Acid, Sepsis 1.3 mmol/L Normal 0.5-1.9 [facility] Comment on above: Performed By: #### L ACDS #### [facility] [address] [place] [id number] Rn Er: Joelle Parker MD Lactic Acid, Sepsis 1.3 mmol/L 0.5 - 1. 9 mmol/L [facility] CT CHEST WO CONTRASTon 02-14 New 1 [...] 02/14/2022to be communicated to a licensed caregiver. [facility] EXAMINATION: CT OF [...] 02/14/2022to be communicated to a licensed caregiver. [email or web address] Work Phone: Radiology Study observation (narrative) [employer] [facility] Work Phone: CT CHEST WO CONTRASTOrdered By: Hank Red on 02-14-2022 [facility] Work Phone: ECHO Complete 2D W Doppler W Coloron 02-14-2022 [facility] Transthoracic Echocardiography Report (TTE) Patient Name COTY Date of Study 02/14/2022 TIP Plata Date of 1980 Gender Male Age 42 year(s) Race Room Number Height: 72 inch, 182.88 cm Corporate ID [id number] Weight: 174 pounds, 78.9 kg # Patient Acct [id number] BSA: 2.01 m^2 BMI: 23.6 kg/m^2 # MR # [id number] [employer] Elva Dejesus Interpreting Physician Alec Cheung Fellow Referring Nurse Practitioner Interpreting Referring Physician Tip Parker, Fellow [employer]-CORRECTIONAL MEDICINE PHYSICIAN Type of Study TTE procedure:2D Echocardiogram, M-Mode, Doppler, Color Doppler. Procedure Date Date: 02/14/2022 Start: 01:14 PM Study Location: [facility] Technical Quality: Fair visualization Indications:Endocardi tis, Bacteremia [...] mmHg (more content not included)... PN [facility]V [facility] Alec Cheung MD - 02/14/2022 [facility] Transthoracic Echocardiography Report (TTE) Patient Name COTY Date of Study 02/14/2022 TIP Plata Date of 1980 Gender Male Age 42 year(s) Race Room Number Height: 72 inch, 182.88 cm Corporate ID [id number] Weight: 174 pounds, 78.9 kg # Patient Acct [id number] BSA: 2.01 m^2 BMI: 23.6 kg/m^2 # MR # [id number] [employer] Elva Dejesus Interpreting Physician Alec Cheung Fellow Referring Nurse Practitioner Interpreting Referring Physician Tip Parker, Fellow [employer]-CORRECTIONAL MEDICINE PHYSICIAN Type of Study TTE procedure:2D Echocardiogram, M-Mode, Doppler, Color Doppler. Procedure Date Date: 02/14/2022 Start: 01:14 PM Study Location: [facility] Technical Quality: Fair visualization Indications:Endocardi tis, Bacteremia [...] 3.57 mmHg Es (more content not included)... [email or web address] Work Phone: ECHO Complete 2D W Doppler W ColorOrdered By: Alec Cheung on 02-14-2022 [employer] Phone: Basic Metabolic Panel w/ Ref rebecca to MGon 01-30-2022 Anion gap [Moles/Vol] 8 mmol/L Low 9 - 17 mmol/L [email or web address] Calcium [Mass/Vol] 7.8 mg/dL Low 8.6 - 10. 4 mg/dL [email or web address] Chloride [Moles/Vol] 103 mmol/L 98 - 10 7 mmol/L [email or web address] CO2 [Moles/Vol] 23 mmol/L 20 - 31 mmol/L [email or web address] Creatinine [Mass/Vol] 0.88 mg/dL 0.70 - 1.20 mg/dL [email or web address] GFR >60 >60 mL/min [employer] GFR Non- >60 >60 mL/min [email or web address] GFR/1.73 sq M.predicted MDRD (S/P/Bld) [Vol rate/Area] [email or web address] Comment on above: Average GFR for 40-4 9 years old: 99 mL/min/1.73sq m Chronic Kidney Disease: <60 mL/min/1.73sq m Kidney failure: <15 mL/min/1.73sq m eGFR calculated using average adult body mass. Additional eGFR calculator available at: http://www.OyaGen/multiple_crcl_2011.htm Glucose [Mass/Vol] 155 mg/dL High 70 - 99 mg/dL [facility] Potassium [Moles/Vol] 3.9 mmol/L 3.7 - 5.3 mmol/L [facility] Sodium [Moles/Vol] 134 mmol/L Low 135 - 144 mmol/L [facility] Urea nitrogen (BldV) [Mass/Vol] 15 mg/dL 6 - 20 mg/dL [facility] CBC with Auto Differentialon 01-30-2022 Absolute Eos # 0.31 [facility] Absolute Immature Granulocyte 0.10 [facility] Absolute Lymph # 1.35 [facility] alth Absolute Tama # 1.77 High [facility] lt Basophils (Bld) [#/Vol] 0.00 10*3/uL [facility] Basophils/100 WBC (Bld) 0 % 0 - 2 % [facility] Eosinophils/100 WBC (Bld) 3 % 1 - 4 % [facility] Hematocrit (Bld) [Volume fraction] 29.9 % Low 40.7 - 50.3 % [facility] Hemoglobin.gastrointesti nal spec 1 Ql (Stl) 10.2 g/dL Low 13.0 - 17.0 g/dL [facility] Immature granulocytes/100 WBC (Bld) 1 % High 0 [facility] Interpretation and review of laboratory results Abnormal [facility] Lymphocytes/100 WBC (Bld) 13 % Low 24 - 44 % [facility] MCH (RBC) [Entitic mass] 32.6 pg 25. 2 - 33.5 pg [facility] MCHC (RBC) [Mass/Vol] 34.1 g/dL 28.4 - 34.8 g/dL [facility] MCV (RBC) [Entitic vol] 95.5 fL 82.6 - 102.9 fL [facility] Monocytes/100 WBC (Bld) 17 % High 1 - 7 % M [facility] Morphology Adis (Bld) [Interp] ANISOCYTOSIS PRESENT [facility] h NRBC Automated 0.0 0.0 per 100 WBC [facility] Platelet distribution width (Bld) [Ratio] 16.2 % High 11.8 - 14.4 % [facility] Platelets (Bld) [#/Vol] See Reflexed IPF Result [facility] RBC (Bld) [#/Vol] 3.13 10*6/uL Low 4.21 - 5.7 7 m/uL [facility] Segmented neutrophils/100 WBC (Bld) 66 % 36 - 66 % [facility] [#/Vol] 10.4 10*3/uL [facility] CKon 01-30-2022 CK [Catalytic activity/Vol] 26 U/L Low 39 - 308 U/L [facility] Hepatic Function Panelon Albumin [Mass/Vol] 1.8 g/dL Low 3.5 - 5.2 g/dL [facility] Albumin/Globulin [Mass ratio] 0.4 {ratio} Low [facility] ALP (Bld) [Catalytic activity/Vol] 42 U/L 40 - 129 U/L [facility] ALT [Catalytic activity/Vol] 15 U/L 5 - 41 U/L [facility] AST [Catalytic activity/Vol] 29 U/L <40 [facility] Bilirubin [Mass/Vol] 1.66 mg/dL High 0.3 - 1 .2 mg/dL [facility] Bilirubin, Indirect 0.96 mg/dL 0.00 - 1 .00 mg/dL [facility] Bilirubin.indirect [Mass/Vol] 0.70 mg/dL High <0.31 [facility] Free PSA/Total PSA [Mass fraction] 6.4 g/dL 6.4 - 8.3 g/dL [facility] Immature Platelet Fractionon 01-30-2022 Interpretation and review of laboratory results Abnormal [facility] Platelet, Fluorescence 75 Low [facility] Comment on above: ORDERED BY LAB Platelet, Immature Fraction 3.3 % 1.1 - 10.3 % [facility] Comment on above: ORDERED BY LAB [facility] No Panel Informationon 01-30 Interpretation and review of laboratory results Abnormal [facility] SURGICAL PATHOLOGY REPORTon 01-30-2022 Surgical Pathology Report -- Diagnosis -- LEFT CALCANEUS BONE, EXCISION: - SEVERE ACUTE AND CHRONIC CELLULITIS WITH GRANULATION TISSUE REACTION AND FIBROSIS (CHRONIC ACTIVE ABSCESS). - ACUTE AND CHRONIC OSTEOMYELITIS WITH REACTIVE AND DESTRUCTIVE BONE CHANGES AND MEDULLARY FIBROSIS. Edward Paz M.D. Electronically Signed Out 01/30/2022 Clinical Information Pre-op Diagnosis: SEPTIC BURSITIS LEFT [...] SURGICAL PATHOLOGY CONSULTATION Patient Name: TIP ANSARI [facility] Rec: [id number] Path Number: [id number] [facility] ANATOMIC PATHOLOGY [address] [place] [address]. [place], [place] [address] [employer] [facility] [email or web address] Basic Metabolic Panel w/ Ref rebecca to MGon 01-29-2022 Anion gap [Moles/Vol] 10 mmol/L 9 - 17 mmol/L [email or web address] Calcium [Mass/Vol] 8.6 mg/dL 8.6 - 10. 4 mg/dL [email or web address] Chloride [Moles/Vol] 108 mmol/L High 98 - 10 7 mmol/L [email or web address] CO2 [Moles/Vol] 20 mmol/L 20 - 31 mmol/L [email or web address] Creatinine [Mass/Vol] 0.85 mg/dL 0.70 - 1.20 mg/dL [email or web address] GFR >60 >60 mL/min [employer] GFR Non- >60 >60 mL/min [email or web address] GFR/1.73 sq M.predicted MDRD (S/P/Bld) [Vol rate/Area] [email or web address] Comment on above: Average GFR for 40-4 9 years old: 99 mL/min/1.73sq m Chronic Kidney Disease: <60 mL/min/1.73sq m Kidney failure: <15 mL/min/1.73sq m eGFR calculated using average adult body mass. Additional eGFR calculator available at: http://www.[employer]or[employer]Ag/multiple_crcl_2011.htm Glucose [Mass/Vol] 95 mg/dL 70 - 99 mg/dL [facility] Potassium [Moles/Vol] 4.2 mmol/L 3.7 - 5.3 mmol/L [facility] Sodium [Moles/Vol] 138 mmol/L 135 - 144 mmol/L [facility] Urea nitrogen (BldV) [Mass/Vol] 31 mg/dL High 6 - 20 mg/dL [facility] CBC with Auto Differentialon 01-29-2022 Absolute Eos # 0.27 [facility] Absolute Immature Granulocyte 0.05 [facility] Absolute Lymph # 1.01 Low [facility] He alth Absolute Tama # 1.01 [facility] lth Basophils (Bld) [#/Vol] 0.05 10*3/uL [facility] Basophils/100 WBC (Bld) 1 % 0 - 2 % [facility] Eosinophils/100 WBC (Bld) 3 % 1 - 4 % [facility] Hematocrit (Bld) [Volume fraction] 29.8 % Low 40.7 - 50.3 % [facility] Hemoglobin.gastrointesti nal spec 1 Ql (Stl) 9.4 g/dL Low 13.0 - 17.0 g/dL [facility] Immature granulocytes/100 WBC (Bld) 1 % High 0 [facility] Interpretation and review of laboratory results Abnormal [facility] Lymphocytes/100 WBC (Bld) 10 % Low 24 - 43 % [facility] MCH (RBC) [Entitic mass] 28.0 pg 25. 2 - 33.5 pg [facility] MCHC (RBC) [Mass/Vol] 31.5 g/dL 28.4 - 34.8 g/dL [facility] MCV (RBC) [Entitic vol] 88.7 fL 82.6 - 102.9 fL [facility] Monocytes/100 WBC (Bld) 10 % 3 - 12 % [facility] NRBC Automated 0.0 0.0 per 100 WBC [facility] Platelet distribution width (Bld) [Ratio] 17.4 % High 11.8 - 14.4 % [facility] Platelet mean volume (Bld) [Entitic vol] 8.7 fL 8.1 - 13.5 fL [facility] Platelets (Bld) [#/Vol] 131 10*3/uL Low [facility] RBC (Bld) [#/Vol] 3.36 10*6/uL Low 4.21 - 5.7 7 m/uL [email or web address] RBC (Bld) [#/Vol] ANISOCYTOSIS PRESENT [email or web address] Segmented neutrophils/100 WBC (Bld) 76 % High 36 - 65 % [email or web address] Segs [facility] 7.60 [facility] (Bld) [#/Vol] 10.0 10*3/uL [facility] CKon 01-29-2022 CK [Catalytic activity/Vol] 10 U/L Low 39 - 308 U/L [facility] [employer] EKG 12 LeadOrdered By: Dorothy Pink on 01-29-2022 Atrial Rate 139 BPM [email or web address] Work Phone: P [place] 54 degrees [email or web address] Work Phone: P-R Interval 136 ms [email or web address] Work Phone: [phone] Q-T Interval 278 ms [email or web address] Work Phone: QRS Duration 78 ms [email or web address] Work Phone: QTc Calculation (Bazett) 423 ms [email or web address] Work Phone: R [place] 65 degrees [email or web address] Work Phone: T [place] 51 degrees [email or web address] Work Phone: Ventricular Rate 139 BPM [employer] [facility] Work Phone: [email or web address] Work Phone: EKG 12 Leadon 01-29-2022 Sinus tachycardia Otherwise normal ECG No previous ECGs available [facility] ST Dorothy Condon MD - 01/29/2022 Sinus tachycardia Otherwise normal ECG No previous ECGs available [email or web address] Work Phone: Hepatic Function Panelon Albumin [Mass/Vol] 2.6 g/dL Low 3.5 - 5.2 g/dL [employer] Albumin/Globulin [Mass ratio] 0.7 {ratio} Low [email or web address] ALP (Bld) [Catalytic activity/Vol] 88 U/L 40 - 129 U/L [email or web address] ALT [Catalytic activity/Vol] 39 U/L 5 - 41 U/L [email or web address] AST [Catalytic activity/Vol] 23 U/L <40 [facility] Bilirubin [Mass/Vol] 0.38 mg/dL 0.3 - 1 .2 mg/dL [facility] Bilirubin, Indirect 0.27 mg/dL 0.00 - 1 .00 mg/dL [facility] Bilirubin.indirect [Mass/Vol] 0.11 mg/dL <0.31 [facility] Free PSA/Total PSA [Mass fraction] 6.2 g/dL Low 6.4 - 8.3 g/dL [facility] No Panel Informationon 01-29 Interpretation and review of laboratory results Abnormal [facility] POC Glucose Fingerstickon Glucose [Mass/Vol] 100 mg/dL 75 - 110 mg/dL [facility] Basic Metabolic Panel w/ Ref rebecca to MGon 01-28-2022 Anion gap [Moles/Vol] 14 mmol/L 9 - 17 mmol/L [facility] [employer] Calcium [Mass/Vol] 8.9 mg/dL 8.6 - 10. 4 mg/dL [facility] [employer] Chloride [Moles/Vol] 103 mmol/L 98 - 10 7 mmol/L [facility] [employer] CO2 [Moles/Vol] 20 mmol/L 20 - 31 mmol/L [facility] Creatinine [Mass/Vol] 0.98 mg/dL 0.70 - 1.20 mg/dL [facility] GFR >60 >60 mL/min [facility] GFR Non- >60 >60 mL/min [facility] GFR/1.73 sq M.predicted MDRD (S/P/Bld) [Vol rate/Area] [facility] Comment on above: Average GFR for 40-4 9 years old: 99 mL/min/1.73sq m Chronic Kidney Disease: <60 mL/min/1.73sq m Kidney failure: <15 mL/min/1.73sq m eGFR calculated using average adult body mass. Additional eGFR calculator available at: http://www.[employer]or[employer]/multiple_crcl_2012.htm Glucose [Mass/Vol] 153 mg/dL High 70 - 99 mg/dL [facility] Interpretation and review of laboratory results Abnormal [facility] [employer] Potassium [Moles/Vol] 3.5 mmol/L Low 3.7 - 5.3 mmol/L [facility] [employer] Sodium [Moles/Vol] 137 mmol/L 135 - 144 mmol/L [facility] Urea nitrogen (BldV) [Mass/Vol] 29 mg/dL High 6 - 20 mg/dL [facility] CBC with Auto Differentialon 01-28-2022 Absolute Eos # 0.24 [facility] th Absolute Immature Granulocyte 0.08 [facility] Absolute Lymph # 1.40 [facility] He alth Absolute Tama # 0.46 [facility] Basophils (Bld) [#/Vol] 0.03 10*3/uL [facility] Basophils/100 WBC (Bld) 0 % 0 - 2 % [facility] Eosinophils/100 WBC (Bld) 3 % 1 - 4 % [facility] Hematocrit (Bld) [Volume fraction] 30.1 % Low 40.7 - 50.3 % [facility] Hemoglobin.gastrointesti nal spec 1 Ql (Stl) 9.4 g/dL Low 13.0 - 17.0 g/dL [facility] Immature granulocytes/100 WBC (Bld) 1 % High 0 [facility] Interpretation and review of laboratory results Abnormal [facility] Lymphocytes/100 WBC (Bld) 18 % Low 24 - 43 % [facility] MCH (RBC) [Entitic mass] 28.1 pg 25. 2 - 33.5 pg [facility] MCHC (RBC) [Mass/Vol] 31.2 g/dL 28.4 - 34.8 g/dL [facility] MCV (RBC) [Entitic vol] 90.1 fL 82.6 - 102.9 fL [facility] Monocytes/100 WBC (Bld) 6 % 3 - 12 % [facility] NRBC Automated 0.0 0.0 per 100 WBC [facility] Platelet distribution width (Bld) [Ratio] 16.6 % High 11.8 - 14.4 % [facility] Platelet mean volume (Bld) [Entitic vol] 8.8 fL 8.1 - 13.5 fL [facility] Platelets (Bld) [#/Vol] 178 10*3/uL [facility] RBC (Bld) [#/Vol] 3.34 10*6/uL Low 4.21 - 5.7 7 m/uL [facility] RBC (Bld) [#/Vol] ANISOCYTOSIS PRESENT [facility] Segmented neutrophils/100 WBC (Bld) 72 % High 36 - 65 % [facility] Segs Absolute 5.55 [facility] Healt h WBC (Bld) [#/Vol] 7.8 10*3/uL [facility] CKon 01-28-2022 CK [Catalytic activity/Vol] 8 U/L Low 39 - 308 U/L [facility] Interpretation and review of laboratory results Abnormal [facility] Culture, Blood 1on 2 Bacteria identified Cx Nom (Unsp spec) NO GROWTH 5 DAYS [facility] Special Requests RIGHT FOREARM 20ML [facility] Specimen Description .BLOOD [facility] Bacteria identified Cx Nom (Unsp spec) NO GROWTH 5 DAYS [facility] [facility] [place] Special Requests RIGHT HAND 20ML [facility] Health Specimen Description .BLOOD [facility] Hepatic Function Panelon Albumin [Mass/Vol] 3 g/dL Low 3.5 - 5.2 g/dL [facility] [place] Albumin/Globulin [Mass ratio] 0.9 {ratio} Low [facility] [place] ALP (Bld) [Catalytic activity/Vol] 96 U/L 40 - 129 U/L [facility] [place] ALT [Catalytic activity/Vol] 21 U/L 5 - 41 U/L [facility] [place] AST [Catalytic activity/Vol] 10 U/L <40 [facility] [place] Bilirubin [Mass/Vol] mg/dL Low 0.3 - 1 .2 mg/dL [facility] [place] Bilirubin, Indirect Can not be calculated 0.00 - 1.00 mg/dL [facility] [place] Bilirubin.indirect [Mass/Vol] mg/dL <0.31 mg/dL [facility] [place] Free PSA/Total PSA [Mass fraction] 6.4 g/dL 6.4 - 8.3 g/dL [facility] [place] Interpretation and review of laboratory results Abnormal [facility] Lactic Acidon 01-28-2022 Lactic Acid, Whole Blood 1.6 mmol/L 0.7 - 2.1 mmol/L [facility] Interpretation and review of laboratory results Abnormal [facility] [place] Lactic Acid, Whole Blood 4.9 mmol/L High 0.7 - 2.1 mmol/L [facility] Magnesiumon 01-28-2022 Magnesium [Mass/Vol] 1.7 mg/dL 1.6 - 2 .6 mg/dL [facility] Basic Metabolic Panel w/ Ref rebecca to MGon 01-27-2022 Anion gap [Moles/Vol] 11 mmol/L 9 - 17 mmol/L [facility] [place] Calcium [Mass/Vol] 9.1 mg/dL 8.6 - 10. 4 mg/dL [facility] [place] Chloride [Moles/Vol] 101 mmol/L 98 - 10 7 mmol/L [facility] [place] CO2 [Moles/Vol] 24 mmol/L 20 - 31 mmol/L [facility] [place] Creatinine [Mass/Vol] 0.93 mg/dL 0.70 - 1.20 mg/dL [facility] [place] GFR >60 >60 mL/min [facility] GFR Non- >60 >60 mL/min [facility] [place] GFR/1.73 sq M.predicted MDRD (S/P/Bld) [Vol rate/Area] [facility] [place] Comment on above: Average GFR for 40-4 9 years old: 99 mL/min/1.73sq m Chronic Kidney Disease: <60 mL/min/1.73sq m Kidney failure: <15 mL/min/1.73sq m eGFR calculated using average adult body mass. Additional eGFR calculator available at: http://www.[employer]/multiple_crcl_2012.htm Glucose [Mass/Vol] 187 mg/dL High 70 - 99 mg/dL [facility] [place] Potassium [Moles/Vol] 4.4 mmol/L 3.7 - 5.3 mmol/L [facility] [place] Sodium [Moles/Vol] 136 mmol/L 135 - 144 mmol/L [facility] [place] Urea nitrogen (BldV) [Mass/Vol] 25 mg/dL High 6 - 20 mg/dL [facility] [place] CBC with Auto Differentialon 01-27-2022 Absolute Eos # 0.20 [facility] th Absolute Immature Granulocyte 0.00 [facility] [place] Absolute Lymph # 1.39 [facility] alth Absolute Tama # 0.79 [facility] lth Basophils (Bld) [#/Vol] 0.00 10*3/uL [facility] [place] Basophils/100 WBC (Bld) 0 % 0 - 2 % M [facility] Eosinophils/100 WBC (Bld) 1 % 1 - 4 % [facility] [place] Hematocrit (Bld) [Volume fraction] 31.8 % Low 40.7 - 50.3 % [facility] [place] Hemoglobin.gastrointesti nal spec 1 Ql (Stl) 10.1 g/dL Low 13.0 - 17.0 g/dL [facility] [place] Immature granulocytes/100 WBC (Bld) 0 % 0 [facility] [place] Interpretation and review of laboratory results Abnormal [facility] [place] Lymphocytes/100 WBC (Bld) 7 % Low 24 - 44 % [facility] [place] MCH (RBC) [Entitic mass] 27.5 pg 25. 2 - 33.5 pg [facility] [place] MCHC (RBC) [Mass/Vol] 31.8 g/dL 28.4 - 34.8 g/dL [facility] [place] MCV (RBC) [Entitic vol] 86.6 fL 82.6 - 102.9 fL [facility] [place] Monocytes/100 WBC (Bld) 4 % 1 - 7 % M [facility] Morphology Adis (Bld) [Interp] ANISOCYTOSIS PRESENT [facility] NRBC Automated 0.0 0.0 per 100 WBC [facility] [place] Platelet distribution width (Bld) [Ratio] 16.1 % High 11.8 - 14.4 % [facility] [place] Platelet mean volume (Bld) [Entitic vol] 9.2 fL 8.1 - 13.5 fL [facility] [place] Platelets (Bld) [#/Vol] 201 10*3/uL [facility] [place] RBC (Bld) [#/Vol] 3.67 10*6/uL Low 4.21 - 5.7 7 m/uL [facility] [place] Segmented neutrophils/100 WBC (Bld) 88 % High 36 - 66 % [facility] [place] Segs Absolute 17.42 High [facility] WBC (Bld) [#/Vol] 19.8 10*3/uL High [facility] CKon 01-27-2022 CK [Catalytic activity/Vol] 11 U/L Low 39 - 308 U/L [facility] [place] Hepatic Function Panelon Albumin [Mass/Vol] 3.1 g/dL Low 3.5 - 5.2 g/dL [facility] [place] Albumin/Globulin [Mass ratio] 0.8 {ratio} Low [facility] [place] ALP (Bld) [Catalytic activity/Vol] 87 U/L 40 - 129 U/L [facility] [place] ALT [Catalytic activity/Vol] 27 U/L 5 - 41 U/L [facility] [place] AST [Catalytic activity/Vol] 14 U/L <40 [facility] [place] Bilirubin [Mass/Vol] 0.30 mg/dL 0.3 - 1 .2 mg/dL [facility] [place] Bilirubin, Indirect 0.21 mg/dL 0.00 - 1 .00 mg/dL [facility] [place] Bilirubin.indirect [Mass/Vol] 0.09 mg/dL <0.31 [facility] [place] Free PSA/Total PSA [Mass fraction] 7.2 g/dL 6.4 - 8.3 g/dL [facility] [place] No Panel Informationon 01-27 Interpretation and review of laboratory results Abnormal [facility] Basic Metabolic Panel w/ Ref rebecca to MGon 01-26-2022 Anion gap [Moles/Vol] 12 mmol/L 9 - 17 mmol/L [facility] [place] Calcium [Mass/Vol] 9.5 mg/dL 8.6 - 10. 4 mg/dL [facility] [place] Chloride [Moles/Vol] 104 mmol/L 98 - 10 7 mmol/L [facility] [place] CO2 [Moles/Vol] 21 mmol/L 20 - 31 mmol/L [facility] [place] Creatinine [Mass/Vol] 0.95 mg/dL 0.70 - 1.20 mg/dL [facility] [place] GFR >60 >60 mL/min [facility] GFR Non- >60 >60 mL/min [facility] [place] GFR/1.73 sq M.predicted MDRD (S/P/Bld) [Vol rate/Area] [facility] [place] Comment on above: Average GFR for 40-4 9 years old: 99 mL/min/1.73sq m Chronic Kidney Disease: <60 mL/min/1.73sq m Kidney failure: <15 mL/min/1.73sq m eGFR calculated using average adult body mass. Additional eGFR calculator available at: http://www.[employer]/multiple_crcl_2012.htm Glucose [Mass/Vol] 123 mg/dL High 70 - 99 mg/dL [facility] [place] Potassium [Moles/Vol] 4.2 mmol/L 3.7 - 5.3 mmol/L [facility] [place] Sodium [Moles/Vol] 137 mmol/L 135 - 144 mmol/L [facility] [place] Urea nitrogen (BldV) [Mass/Vol] 26 mg/dL High 6 - 20 mg/dL [facility] [place] CBC with Auto Differentialon 01-26-2022 Absolute Eos # 0.42 [facility] th Absolute Immature Granulocyte 0.09 [facility] [place] Absolute Lymph # 1.63 [facility] alth Absolute Tama # 1.11 [facility] Basophils (Bld) [#/Vol] 0.07 10*3/uL [facility] [place] Basophils/100 WBC (Bld) 1 % 0 - 2 % M [facility] Eosinophils/100 WBC (Bld) 5 % High 1 - 4 % [facility] [place] Hematocrit (Bld) [Volume fraction] 33.3 % Low 40.7 - 50.3 % [facility] [place] Hemoglobin.gastrointesti nal spec 1 Ql (Stl) 10.7 g/dL Low 13.0 - 17.0 g/dL [facility] [place] Immature granulocytes/100 WBC (Bld) 1 % High 0 [facility] [place] Interpretation and review of laboratory results Abnormal [facility] [place] Lymphocytes/100 WBC (Bld) 20 % Low 24 - 43 % [facility] [place] MCH (RBC) [Entitic mass] 27.8 pg 25. 2 - 33.5 pg [facility] [place] MCHC (RBC) [Mass/Vol] 32.1 g/dL 28.4 - 34.8 g/dL [facility] [place] MCV (RBC) [Entitic vol] 86.5 fL 82.6 - 102.9 fL [facility] [place] Monocytes/100 WBC (Bld) 14 % High 3 - 12 % [facility] NRBC Automated 0.0 0.0 per 100 WBC [facility] [place] Platelet distribution width (Bld) [Ratio] 16.6 % High 11.8 - 14.4 % [facility] [place] Platelet mean volume (Bld) [Entitic vol] 8.7 fL 8.1 - 13.5 fL [facility] [place] Platelets (Bld) [#/Vol] 183 10*3/uL [facility] [place] RBC (Bld) [#/Vol] 3.85 10*6/uL Low 4.21 - 5.7 7 m/uL [facility] [place] RBC (Bld) [#/Vol] ANISOCYTOSIS PRESENT [facility] [place] Segmented neutrophils/100 WBC (Bld) 59 % 36 - 65 % [facility] [place] Segs Absolute 4.87 [facility] h WBC (Bld) [#/Vol] 8.2 10*3/uL [facility] CKon 01-26-2022 CK [Catalytic activity/Vol] 10 U/L Low 39 - 308 U/L [facility] [place] Culture, Blood 1on 2 Bacteria identified Cx Nom (Unsp spec) NO GROWTH 5 DAYS [facility] [place] Special Requests UNKNOWN [facility] Specimen Description .BLOOD [facility] FLUORO FOR SURGICAL PROCEDUR ESon 01-26-2022 Radiology exam is complete. No Radiologist dictation. Please follow up with ordering provider. [facility]IS [facility]IDATED Hepatic Function Panelon Albumin [Mass/Vol] 3.1 g/dL Low 3.5 - 5.2 g/dL [facility] [place] Albumin/Globulin [Mass ratio] 0.6 {ratio} Low [facility] [place] ALP (Bld) [Catalytic activity/Vol] 99 U/L 40 - 129 U/L [facility] [place] ALT [Catalytic activity/Vol] 30 U/L 5 - 41 U/L [facility] [place] AST [Catalytic activity/Vol] 19 U/L <40 [facility] [place] Bilirubin [Mass/Vol] 0.21 mg/dL Low 0.3 - 1 .2 mg/dL [facility] [place] Bilirubin, Indirect Can not be calculated 0.00 - 1.00 mg/dL [facility] [place] Bilirubin.indirect [Mass/Vol] mg/dL <0.31 mg/dL [facility] [place] Free PSA/Total PSA [Mass fraction] 8.0 g/dL 6.4 - 8.3 g/dL [facility] [place] No Panel Informationon 01-26 Interpretation and review of laboratory results Abnormal [facility] US Heart Transesophagealon 0 01-26-2022 Transesophageal Echocardiography Report (GIANFRANCO) Patient Name COTY MIRANDA Date of Study 01/24/2022 A Date of 1980 Gender Male Age 42 year(s) Race Room Number 2009 Height: 72 inch, 182.88 cm Corporate ID [id number] Weight: 161 pounds, 73 kg # Patient Acct [id number] BSA: 1.94 m^2 BMI: 21.84 # kg/m^2 MR # [id number] [employer] Karin Denis Interpreting Physician Gordo Rueda [employer] Fellow Gaye Lewis Referring Nurse Practitioner Interpreting Referring Physician MARISOL ANDREA, * Fellow Type of Study GIANFRANCO procedure:2D echocardiogram, Color Doppler, TRANSESOPHAGEAL ECHO. Procedure Date Date: 01/24/2022 Start: 10:42 AM Study Location: [facility] Technical Quality: Good visualization Indications:Endocardi [...] Miscellaneous The aorta shows mild plaque formation. [facility] Gauri Guerrero MD - 01/26/2022 Transesophageal Echocardiography Report (GIANFRANCO) Patient Name COTY MIRANDA Date of Study 01/24/2022 A Date of 1980 Gender Male Age 42 year(s) Race Room Number 2009 Height: 72 inch, 182.88 cm Corporate ID [id number] Weight: 161 pounds, 73 kg # Patient Acct [id number] BSA: 1.94 m^2 BMI: 21.84 # kg/m^2 MR # [id number] [employer] Karin Denis Interpreting Physician Gordo Rueda [employer] Fellow Gaye Lewis Referring Nurse Practitioner Interpreting Referring Physician MARISOL ANDREA, * Fellow Type of Study GIANFRANCO procedure:2D echocardiogram, Color Doppler, TRANSESOPHAGEAL ECHO. Procedure Date Date: 01/24/2022 Start: 10:42 AM Study Location: [facility] Technical Quality: Good visualization Indications:Endocardi [...] Miscellaneous The aorta shows mild plaque formation. [email or web address] Work Phone: Heart TransesophagealOrde red By: Gauri Guerrero on 01-26-2022 [facility] [employer] Work Phone: Basic Metabolic Panel w/ Ref rebecca to MGon 01-25-2022 Anion gap [Moles/Vol] 14 mmol/L 9 - 17 mmol/L [facility] [employer] Calcium [Mass/Vol] 9.0 mg/dL 8.6 - 10. 4 mg/dL [facility] [employer] Chloride [Moles/Vol] 105 mmol/L 98 - 10 7 mmol/L [facility] [employer] CO2 [Moles/Vol] 20 mmol/L 20 - 31 mmol/L [facility] [employer] Creatinine [Mass/Vol] 0.82 mg/dL 0.70 - 1.20 mg/dL [facility] [employer] GFR >60 >60 mL/min [facility] GFR Non- >60 >60 mL/min [facility] [employer] GFR/1.73 sq M.predicted MDRD (S/P/Bld) [Vol rate/Area] [facility] [place] Comment on above: Average GFR for 40-4 9 years old: 99 mL/min/1.73sq m Chronic Kidney Disease: <60 mL/min/1.73sq m Kidney failure: <15 mL/min/1.73sq m eGFR calculated using average adult body mass. Additional eGFR calculator available at: http://www.[employer]/multiple_crcl_2012.htm Glucose [Mass/Vol] 109 mg/dL High 70 - 99 mg/dL [facility] [place] Potassium [Moles/Vol] 4.4 mmol/L 3.7 - 5.3 mmol/L [facility] [place] Sodium [Moles/Vol] 139 mmol/L 135 - 144 mmol/L [facility] [place] Urea nitrogen (BldV) [Mass/Vol] 19 mg/dL 6 - 20 mg/dL [facility] [place] CBC with Auto Differentialon 01-25-2022 Absolute Eos # 0.34 [facility] th Absolute Immature Granulocyte 0.07 [facility] [place] Absolute Lymph # 1.54 [facility] alth Absolute Tama # 1.01 [facility] lth Basophils (Bld) [#/Vol] 0.04 10*3/uL [facility] [place] Basophils/100 WBC (Bld) 0 % 0 - 2 % M [facility] Eosinophils/100 WBC (Bld) 4 % 1 - 4 % [facility] [place] Hematocrit (Bld) [Volume fraction] 34.5 % Low 40.7 - 50.3 % [facility] [place] Hemoglobin.gastrointesti nal spec 1 Ql (Stl) 10.6 g/dL Low 13.0 - 17.0 g/dL [facility] [place] Immature granulocytes/100 WBC (Bld) 1 % High 0 [facility] [place] Interpretation and review of laboratory results Abnormal [facility] [place] Lymphocytes/100 WBC (Bld) 17 % Low 24 - 43 % [facility] [place] MCH (RBC) [Entitic mass] 27.5 pg 25. 2 - 33.5 pg [facility] [place] MCHC (RBC) [Mass/Vol] 30.7 g/dL 28.4 - 34.8 g/dL [facility] [place] MCV (RBC) [Entitic vol] 89.6 fL 82.6 - 102.9 fL [facility] [place] Monocytes/100 WBC (Bld) 11 % 3 - 12 % M [facility] NRBC Automated 0.0 0.0 per 100 WBC [facility] [place] Platelet distribution width (Bld) [Ratio] 16.6 % High 11.8 - 14.4 % [facility] [place] Platelet mean volume (Bld) [Entitic vol] 9.2 fL 8.1 - 13.5 fL [facility] [place] Platelets (Bld) [#/Vol] 189 10*3/uL [facility] [place] RBC (Bld) [#/Vol] 3.85 10*6/uL Low 4.21 - 5.7 7 m/uL [facility] [place] RBC (Bld) [#/Vol] ANISOCYTOSIS PRESENT [facility] [place] Segmented neutrophils/100 WBC (Bld) 67 % High 36 - 65 % [facility] [place] [facility] [#/Vol] 9.0 10*3/uL [facility] CKon 01-25-2022 CK [Catalytic activity/Vol] 9 U/L Low 39 - 308 U/L [facility] [place] Cult,Bloodon 01-25-2022 Cult,Blood Specimen Description .BLOOD Special Requests 5 ML R ELBOW Culture NO GROWTH 5 DAYS Report Status FINAL 01/25/2022 Normal [facility] Comment on above: Performed By: #### B C #### [facility] [address] [place], [place] [id number] Rn Er: Joelle Parker MD Cult,Blood Specimen Description .BLOOD Special Requests 20 ML LEFT FOREARM Culture NO GROWTH 5 DAYS Report Status FINAL 01/25/2022 Normal [facility] Comment on above: Performed By: #### B C #### [facility] [address] [place], [place] [id number] Rn Er: Joelle Parker MD Culture, Blood 1on 2 Bacteria identified Cx Nom (Unsp spec) Positive [facility] [place] Bacteria identified Cx Nom (Unsp spec) DIRECT GRAM STAIN FROM BOTTLE: YEAST [facility] [place] Bacteria identified Cx Nom (Unsp spec) Detected: Nathaniel albicans Detected: Methodology- Polymerase Chain Reaction (PCR) [facility] [place] Bacteria identified Cx Nom (Unsp spec) NATHANIEL ALBICANS [facility] [place] Bacteria identified Cx Nom (Unsp spec) (NOTE) Direct Gram Stain from bottle and Polymerase Chain Reaction (PCR) results called to and read back by: SRUTHI Sawyer RN AT 1925 ON 01/22/22. [facility] [place] Special Requests 5ML UNK SITE [facility] [place] Specimen Description .BLOOD [facility] Special Requests 5ML R HAND [facility] He alth Special Requests 5ML R WRIST [facility] ealth Hepatic Function Panelon Albumin [Mass/Vol] 3 g/dL Low 3.5 - 5.2 g/dL [facility] [place] Albumin/Globulin [Mass ratio] 0.7 {ratio} Low [facility] [place] ALP (Bld) [Catalytic activity/Vol] 99 U/L 40 - 129 U/L [facility] [place] ALT [Catalytic activity/Vol] 31 U/L 5 - 41 U/L [facility] [place] AST [Catalytic activity/Vol] 21 U/L <40 [facility] [place] Bilirubin [Mass/Vol] 0.20 mg/dL Low 0.3 - 1 .2 mg/dL [facility] [place] Bilirubin, Indirect Can not be calculated 0.00 - 1.00 mg/dL [facility] [place] Bilirubin.indirect [Mass/Vol] mg/dL <0.31 mg/dL [facility] [place] Free PSA/Total PSA [Mass fraction] 7.5 g/dL 6.4 - 8.3 g/dL [facility] [place] Infectious Disease Intervent ionon 01-25-2022 Intervention Targeted therapy [facility] [place] Comment on above: Endocarditis nathaniel and recent MRSA [facility] [place] Laboratory - Microbiology an d Antimicrobial susceptibilityon 01-25-2022 Bacteria identified Cx Nom (Unsp spec) NO GROWTH 5 DAYS [facility] [place] No Panel Informationon 01-25 Teofilo Becker RN 01/25/2022 7:26 PM Picc placement note: PICC approved per ID. Prescribed IV Therapy= Multiple vascular surgeon IV Abx/Antifungals Peripheral ultrasound assessment done, right [...] Time out Performed using [employer] Lot #[id number] Expiration date = Catheter size 5 ivorian Trimmed at 45cm Total length inserted 40cm [...] FAQ Catheter Associated Blood Stream Infections and [facility] [id number] REV. 05/23 Nursing and Booklet left at bedside or in chart. Patient (Family or POA) acknowledged understanding of information taught and agreed to procedure. Teofilo Becker RN [facility] [place] Work Phone: Interpretation and review of laboratory results Abnormal [facility] Specimen Description .BLOOD [facility] Tip Confirmation System (TCS ) and/ or Chest Xray for tip confirmationon 01-25-2022 [facility] [place] Work Phone: COVID-19, Rapidon 01-24-2022 SARS-CoV-2 (COVID-19) RNA CHARO+probe Ql (Unsp spec) Not detected Not Detected [facility] [place] Comment on above: Rapid NAAT: The specimen [...] management decisions. Fact sheet for Healthcare Providers: https://www.fda.gov/media/740262/download Fact sheet for Patients: https://www.fda.gov/media/261623/download Methodology: Isothermal Nucleic Acid Amplification Specimen Description .NASOPHARYNGEAL SWAB [facility] Catheterization and angiogra phy procedure details panelon 01-24-2022 [facility] [place] Work Phone: POC Glucose Fingerstickon Glucose [Mass/Vol] 97 mg/dL 75 - 110 mg/dL [facility] CBC with Auto Differentialon 01-23-2022 Absolute Eos # 0.13 [facility]al th Absolute Immature Granulocyte 0.03 [facility] [place] Absolute Lymph # 1.03 Low [facility] He alth Absolute Tama # 0.83 [facility] Basophils (Bld) [#/Vol] 0.03 10*3/uL [facility] [place] Basophils/100 WBC (Bld) 1 % 0 - 2 % [facility] Eosinophils/100 WBC (Bld) 2 % 1 - 4 % [facility] [place] Hematocrit (Bld) [Volume fraction] 34.1 % Low 40.7 - 50.3 % [facility] [place] Hemoglobin.gastrointesti nal spec 1 Ql (Stl) 11.3 g/dL Low 13.0 - 17.0 g/dL [facility] [place] Immature granulocytes/100 WBC (Bld) 1 % High 0 [facility] [place] Interpretation and review of laboratory results Abnormal [facility] [place] Lymphocytes/100 WBC (Bld) 18 % Low 24 - 43 % [facility] [place] MCH (RBC) [Entitic mass] 27.9 pg 25. 2 - 33.5 pg [facility] [place] MCHC (RBC) [Mass/Vol] 33.1 g/dL 28.4 - 34.8 g/dL [facility] [place] MCV (RBC) [Entitic vol] 84.2 fL 82.6 - 102.9 fL [facility] [place] Monocytes/100 WBC (Bld) 15 % High 3 - 12 % M [facility] NRBC Automated 0.0 0.0 per 100 WBC [facility] [place] Platelet distribution width (Bld) [Ratio] 16.1 % High 11.8 - 14.4 % [facility] [place] Platelet mean volume (Bld) [Entitic vol] 9.8 fL 8.1 - 13.5 fL [facility] [place] Platelets (Bld) [#/Vol] 121 10*3/uL Low [facility] [place] RBC (Bld) [#/Vol] 4.05 10*6/uL Low 4.21 - 5.7 7 m/uL [facility] [place] RBC (Bld) [#/Vol] ANISOCYTOSIS PRESENT [facility] [place] Segmented neutrophils/100 WBC (Bld) 63 % 36 - 65 % [facility] [place] [#/Vol] 5.7 10*3/uL [facility] Hepatic Function Panelon Albumin [Mass/Vol] 2.8 g/dL Low 3.5 - 5.2 g/dL [facility] [place] Albumin/Globulin [Mass ratio] 0.6 {ratio} Low [facility] [place] ALP (Bld) [Catalytic activity/Vol] 85 U/L 40 - 129 U/L [facility] [place] ALT [Catalytic activity/Vol] 32 U/L 5 - 41 U/L [facility] AST [Catalytic activity/Vol] 29 U/L <40 [facility] Bilirubin [Mass/Vol] 0.29 mg/dL Low 0.3 - 1 .2 mg/dL [facility] Bilirubin, Indirect 0.2 mg/dL 0.00 - 1 .00 mg/dL [facility] Bilirubin.indirect [Mass/Vol] 0.09 mg/dL <0.31 [facility] Free PSA/Total PSA [Mass fraction] 7.4 g/dL 6.4 - 8.3 g/dL [facility] Interpretation and review of laboratory results Abnormal [facility] MRI ANKLE LEFT W WO CONTRAST [...] sprain of the intact anterior talofibular ligament. [facility] CONSOLIDATED EXAMINATION: MRI OF [...] alignment of the joints. No joint effusion. [facility] Addy Turner MD [...] sprain of the intact anterior talofibular ligament. [email or web address] Work Phone: Radiology Study observation (narrative) [employer] Work Phone: MRI ANKLE LEFT W WO CONTRAST Ordered By: Addy Turner on 01-23-2022 [email or web address] Work Phone: POC Glucose Fingerstickon Glucose [Mass/Vol] 122 mg/dL High 75 - 110 mg/dL [email or web address] Interpretation and review of laboratory results Abnormal [employer] Glucose [Mass/Vol] 99 mg/dL 75 - 110 mg/dL [employer] [facility] [email or web address] Glucose [Mass/Vol] 141 mg/dL High 75 - 110 mg/dL [email or web address] Interpretation and review of laboratory results Abnormal [facility] Renal Function Panelon 01-23 Albumin [Mass/Vol] 2.8 g/dL Low 3.5 - 5.2 g/dL [facility] Anion gap [Moles/Vol] 13 mmol/L 9 - 17 mmol/L [facility] Calcium [Mass/Vol] 8.9 mg/dL 8.6 - 10. 4 mg/dL [facility] Chloride [Moles/Vol] 98 mmol/L 98 - 10 7 mmol/L [facility] CO2 [Moles/Vol] 21 mmol/L 20 - 31 mmol/L [facility] Creatinine [Mass/Vol] 0.68 mg/dL Low 0.70 - 1.20 mg/dL [facility] GFR >60 >60 mL/min [facility] GFR Non- >60 >60 mL/min [facility] GFR/1.73 sq M.predicted MDRD (S/P/Bld) [Vol rate/Area] [facility] Comment on above: Average GFR for 40-4 9 years old: 99 mL/min/1.73sq m Chronic Kidney Disease: <60 mL/min/1.73sq m Kidney failure: <15 mL/min/1.73sq m eGFR calculated using average adult body mass. Additional eGFR calculator available at: http://www.[employer]/multiple_crcl_2011.htm Glucose [Mass/Vol] 148 mg/dL High 70 - 99 mg/dL [facility] Interpretation and review of laboratory results Abnormal [facility] Phosphate [Mass/Vol] 2.7 mg/dL 2.5 - 4 .5 mg/dL [facility] Potassium [Moles/Vol] 4.2 mmol/L 3.7 - 5.3 mmol/L [facility] Sodium [Moles/Vol] 132 mmol/L Low 135 - 144 mmol/L [facility] Urea nitrogen (BldV) [Mass/Vol] 14 mg/dL 6 - 20 mg/dL [facility] Vancomycin Level, Randomon 0 01-23-2022 Vancomycin Rm <4.0 ug/mL [facility] Comment on above: Higher trough serum vancomycin concentrations of 15-20 ug/mL are recommended for complicated infections such as bacteremia, endocarditis, osteomyelitis, meningitis, and hospital acquired pneumonia. [facility] Hemoglobin A1Con 01-22-2022 Glucose [Mass/Vol] 114 mg/dL [facility] Comment on above: The ADA and AACC rec ommend providing the estimated average glucose result to permit better patient understanding of their HBA1c result. HbA1c (Bld) [Mass fraction] 5.6 % 4.0 - 6.0 % [facility] [employer] POC Glucose Fingerstickon Glucose [Mass/Vol] 95 mg/dL 75 - 110 mg/dL [facility] [employer] Glucose [Mass/Vol] 179 mg/dL High 75 - 110 mg/dL [facility] Interpretation and review of laboratory results Abnormal [facility] Glucose [Mass/Vol] 104 mg/dL 75 - 110 mg/dL [facility] [employer] Basic Metabolic Panel w/ Ref rebecca to MGon 01-21-2022 Anion gap [Moles/Vol] 14 mmol/L 9 - 17 mmol/L [email or web address] Calcium [Mass/Vol] 8.6 mg/dL 8.6 - 10. 4 mg/dL [email or web address] Chloride [Moles/Vol] 106 mmol/L 98 - 10 7 mmol/L [email or web address] CO2 [Moles/Vol] 20 mmol/L 20 - 31 mmol/L [email or web address] Creatinine [Mass/Vol] 0.73 mg/dL 0.70 - 1.20 mg/dL [email or web address] GFR >60 >60 mL/min [employer] GFR Non- >60 >60 mL/min [email or web address] GFR/1.73 sq M.predicted MDRD (S/P/Bld) [Vol rate/Area] [facility] [employer] Comment on above: Average GFR for 40-4 9 years old: 99 mL/min/1.73sq m Chronic Kidney Disease: <60 mL/min/1.73sq m Kidney failure: <15 mL/min/1.73sq m eGFR calculated using average adult body mass. Additional eGFR calculator available at: http://www.[employer].LoraxAg/multiple_crcl_2012.htm Glucose [Mass/Vol] 288 mg/dL High 70 - 99 mg/dL [facility] Interpretation and review of laboratory results Abnormal [email or web address] Potassium [Moles/Vol] 3.9 mmol/L 3.7 - 5.3 mmol/L [email or web address] Sodium [Moles/Vol] 140 mmol/L 135 - 144 mmol/L [facility] Urea nitrogen (BldV) [Mass/Vol] 17 mg/dL 6 - 20 mg/dL [facility] C-Reactive Proteinon 022 CRP [Mass/Vol] 51.6 mg/L High 0.0 - 5.0 mg/L [facility] Interpretation and review of laboratory results Abnormal [facility] Lactic Acidon 01-21-2022 Interpretation and review of laboratory results Abnormal [facility] Lactic Acid, Whole Blood 3.3 mmol/L High 0.7 - 2.1 mmol/L [facility] POC Glucose Fingerstickon Glucose [Mass/Vol] 129 mg/dL High 75 - 110 mg/dL [facility] Interpretation and review of laboratory results Abnormal [facility] Procalcitoninon 01-21-2022 Interpretation and review of laboratory results Abnormal [facility] Procalcitonin 11.47 ng/mL High <0.09 [facility] Comment on above: Suspected Sepsis: <0.50 ng/mL [...] entered into the Change in Procalcitonin Calculator (www.mihkar-xdp-xhgljvgymx.com) to determine the patient's Mortality Risk Prognosis In healthy neonates, plasma Procalcitonin (PCT) concentrations increase gradually after , reaching peak values at about 24 hours of age then decrease to normal values below 0.5 ng/mL by 48-72 hours of age. [facility] Protime-INRon 01-21-2022 INR Coag (Bld) [Relative time] 1.0 {INR} [facility] Comment on above: Therapeutic Range: Moderate Anticoagulant Intensity: INR = 2.0-3.0 High Anticoagulant Intensity: INR = 2.5-3.5 PT Coag (PPP) [Time] 11 s [facility] Sedimentation Rateon 022 Interpretation and review of laboratory results Abnormal [facility] Sed Rate 58 mm High 0 - 15 mm [facility] XR CALCANEUS LEFT (MIN 2 VIE WS)on 01-21-2022 1. Soft tissue swelling along the heel of the left foot. No evidence of osteomyelitis. [facility] CON[facility] EXAMINATION: 3 XRAY VIEWS OF THE LEFT CALCANEUS 01/21/2022 5:51 am COMPARISON: 01/10/2022 HISTORY: ORDERING SYSTEM PROVIDED HISTORY: Wound TECHNOLOGIST PROVIDED HISTORY: Wound Reason for Exam: pain FINDINGS: There are areas of edema noted along the left heel. There is no bone erosion or periosteal reaction. No fracture. No retained radiopaque foreign body. [facility] Jefe Bassett MD - 01/21/2022 EXAMINATION: [...] of osteomyelitis. [facility] Work Phone: Radiology Study observation (narrative) [facility] Work Phone: XR CALCANEUS LEFT (MIN 2 VIE WS)Ordered By: Jefe Bassett on 01-21-2022 [facility] Work Phone: Brain Natri. Peptideon 01-20 Natriuretic peptide B (Bld) [Mass/Vol] 93 pg/mL Normal <300 [facility] Comment on above: Result Comment: An age-independent cutoff point of 300 pg/ml has a 98% negative predictive value excluding acute heart failure. Performed By: #### C P, CDP #### [facility] [address] [place] [address] Rn Er: Joelle Parker MD CBC with Diffon 01-20-2022 Abs. Basophil 0.00 k/uL Normal 0.0-0.2 [facility] Comment on above: Performed By: #### C P, CDP #### [facility] [address] [place], [facility] Rn Er: Joelle Parker MD Abs.Imm.Granulocyte 0.00 k/uL Normal 0.00-0.30 [facility] Comment on above: Performed By: #### C P, CDP #### [facility] [address] [place], [place] [address] Rn Er: Joelle Parker MD Abs.Neutrophil (Seg) 9.64 k/uL High 1.50-8.10 [facility] Comment on above: Performed By: #### C P, CDP #### [address] [place], [place] [address] Rn Er: Joelle Parker MD Basophils/100 WBC (Bld) 0 % Normal 0-2 [facility] Comment on above: Performed By: #### C P, CDP #### [address] [place], [facility] Rn Er: Joelle Parker MD Eosinophils (Bld) [#/Vol] 0.21 10*3/uL Normal 0.00-0.44 [facility] Comment on above: Performed By: #### C P, CDP #### [facility] [address] [place], [place] [id number] Rn Er: Joelle Parker MD Eosinophils/100 WBC (Bld) 2 % Normal 1-4 [facility] Comment on above: Performed By: #### C P, CDP #### [facility] [address] [place], [facility] Rn Er: Joelle Parker MD Immature granulocytes/100 WBC (Bld) 0 % Normal 0 [facility] Comment on above: Performed By: #### C P, CDP #### [facility] [address] [place] [address] Rn Er: Joelle Parker MD Lymphocytes (Bld) [#/Vol] 0.64 10*3/uL Low 1.10-3.70 [facility] Comment on above: Performed By: #### C P, CDP #### [address] [place] [address] Rn Er: Joelle Parker MD Lymphocytes/100 WBC (Bld) 6 % Low 24-43 [facility] Comment on above: Performed By: #### C P, CDP #### [address] [place], [place] [address] Rn Er: Joelle Parker MD Monocytes (Bld) [#/Vol] 0.11 10*3/uL Normal 0.10-1.20 [facility] Comment on above: Performed By: #### C P, CDP #### [address] [place] [address] Rn Er: Joelle Parker MD Monocytes/100 WBC (Bld) 1 % Low 3-12 M [facility] Comment on above: Performed By: #### C P, CDP #### [address] [place] [address] Rn Er: Joelle Parker MD Morphology Adis (Bld) [Interp] ANISOCYTOSIS Normal [facility] Comment on above: Result Comment: PRES ENT Performed By: #### C P, CDP #### [address] [place], [place] [id number] Rn Er: Joelle Parker MD Neutrophil (Seg) 91 % High 36-65 [facility] Comment on above: Performed By: #### C P, CDP #### [address] [place] [address] Rn Er: Joelle Parker MD Erythrocyte distribution width (RBC) [Ratio] 16.4 % High 11.8-14.4 [facility] Comment on above: Performed By: #### C P, CDP #### [address] [place] [address] Rn Er: Joelle Parker MD Hematocrit (Bld) [Volume fraction] 35.3 % Low 40.7-50.3 [facility] Comment on above: Performed By: #### C P, CDP #### [address] [place] [address] Rn Er: Joelle Parker MD Hemoglobin (Bld) [Mass/Vol] 11.1 g/dL Low 13.0-17.0 [facility] Comment on above: Performed By: #### C P, CDP #### [address] [place], [place] [id number] Rn Er: Joelle Parker MD MCH (RBC) [Entitic mass] 27.5 pg Normal 25.2-33.5 [facility] Comment on above: Performed By: #### C P, CDP #### [address] [place] [address] Rn Er: Joelle Parker MD MCHC (RBC) [Mass/Vol] 31.4 g/dL Normal 28.4-34.8 [facility] Comment on above: Performed By: #### C P, CDP #### [address] [place] [address] Rn Er: Joelle Parker MD MCV (RBC) [Entitic vol] 87.6 fL Normal 82.6-102.9 M [facility] Comment on above: Performed By: #### C P, CDP #### [address] [place] [facility] Rn Er: Joelle Parker MD NRBC Automated 0.0 per 100 WBC Normal 0.0 [facility] Comment on above: Performed By: #### C P, CDP #### [facility] [address] [place], [facility]83 Rn Er: Joelle Parker MD Platelet mean volume (Bld) [Entitic vol] 8.7 fL Normal 8.1-13.5 [facility] Comment on above: Performed By: #### C P, CDP #### [facility] [address] [place], [facility] Rn Er: Joelle Parker MD Platelets (Bld) [#/Vol] 130 10*3/uL Low 138-453 [facility] Comment on above: Performed By: #### C P, CDP #### [address] [place], [facility] Rn Er: Joelle Parker MD RBC (Bld) [#/Vol] 4.03 10*6/uL Low 4.21-5.77 [facility] Comment on above: Performed By: #### C P, CDP #### [address] [place] [address] Rn Er: Joelle Parker MD WBC (Bld) [#/Vol] 10.6 10*3/uL Normal 3.5-11.3 [facility] Comment on above: Performed By: #### C P, CDP #### [address] [place] [address] Rn Er: Joelle Parker MD CT CHEST PULMONARY EMBOLISM [...] Amilcar Fang MD 01/20/22 Final result Normal [facility] Comp Metabolic Pr/rfx MGon 0 01-20-2022 (cont.) Normal [facility] Comment on above: Result Comment: Aver age GFR for 40-49 years old: 99 mL/min/1.73sq m Chronic Kidney Disease: <60 mL/min/1.73sq m Kidney failure: <15 mL/min/1.73sq m eGFR calculated using average adult body mass. Additional eGFR calculator available at: http://www.[employer].LoraxAg/multiple_crcl_2012.htm Performed By: #### C P, CDP #### [facility] [address] [place] [address] Rn Er: Joelle Parker MD Albumin [Mass/Vol] 3.3 g/dL Low 3.5-5.2 [facility] Comment on above: Performed By: #### C P, CDP #### [facility] [address] [place], [place] [id number] Rn Er: Joelle Parker MD Albumin/Glob Ratio 0.7 Low 1.0-2.5 [facility] Comment on above: Performed By: #### C P, CDP #### [facility] [address] [place], [place] [id number] Rn Er: Joelle Parker MD Alkaline Phos 113 U/L Normal 40-129 [facility] Comment on above: Performed By: #### C P, CDP #### [facility] [address] [place], [place] [id number] Rn Er: Joelle Parker MD ALT [Catalytic activity/Vol] 21 U/L Normal 5-41 [facility] Comment on above: Performed By: #### C P, CDP #### [facility] [address] [place], [place] [phone] Rn Er: Joelle Parker MD Anion gap [Moles/Vol] 7 mmol/L Low 9-17 [facility] Comment on above: Performed By: #### C P, CDP #### [facility] [address] [place] [address] [place], [place] [id number] Rn Er: Joelle Parker MD AST [Catalytic activity/Vol] 18 U/L Normal <40 [facility] Comment on above: Performed By: #### C P, CDP #### [facility] [address] [place], [place] [id number] Rn Er: Joelle Parker MD Bilirubin [Mass/Vol] 0.55 mg/dL Normal 0.3-1.2 [facility] Comment on above: Performed By: #### C P, CDP #### [facility] [address] [place], [place] [id number] Rn Er: Joelle Parker MD BUN/CRE Ratio 24 High 9-20 [facility] Comment on above: Performed By: #### C P, CDP #### [facility] [address] [place] [address] Rn Er: Joelle Parker MD Calcium [Mass/Vol] 9.1 mg/dL Normal 8.6-10.4 [facility] Comment on above: Performed By: #### C P, CDP #### [facility] [address] [place] [address] Rn Er: Joelle Parker MD Chloride [Moles/Vol] 99 mmol/L Normal 98-107 [facility] Comment on above: Performed By: #### C P, CDP #### [facility] [address] [place], [place] [phone] Rn Er: Joelle Parker MD CO2 [Moles/Vol] 27 mmol/L Normal 20-31 [facility] Comment on above: Performed By: #### C P, CDP #### [facility] [address] [place], [place] [id number] Rn Er: Joelle Parker MD Creatinine [Mass/Vol] 0.70 mg/dL Normal 0.70-1.20 [facility] Comment on above: Performed By: #### C P, CDP #### [facility] [address] [place], [place] [phone] Rn Er: Joelle Parker MD GFR, Amer >60 Normal >60 [facility] Comment on above: Performed By: #### C P, CDP #### [facility] [address] [place] [address] Rn Er: Joelle Parker MD GFR,non Amer >60 Normal >60 [facility] Comment on above: Performed By: #### C P, CDP #### [facility] [address] [place] [phone] Rn Er: Joelle Parker MD Glucose [Mass/Vol] 104 mg/dL High 70-99 [facility] Comment on above: Performed By: #### C P, CDP #### [facility] [address] [place], [place] [phone] Rn Er: Joelle Parker MD Potassium [Moles/Vol] 4.3 mmol/L Normal 3.7-5.3 [facility] Comment on above: Performed By: #### C P, CDP #### [facility] [address] [place], [place] [phone] Rn Er: Joelle Parker MD Protein [Mass/Vol] 8.3 g/dL Normal 6.4-8.3 [facility] Comment on above: Performed By: #### C P, CDP #### [address] [place], [place] [id number] Rn Er: Joelle Parker MD Sodium [Moles/Vol] 133 mmol/L Low 135-144 [facility] Comment on above: Performed By: #### C P, CDP #### [address] [place], [place] [phone] Rn Er: Joelle Parker MD Staging: Normal [facility] Comment on above: Result Comment: Stag e 1: Some kidney damage normal GFR Stage 2: Mild kidney damage GFR 60-89 Stage 3: Moderate kidney damage GFR 30-59 Stage 4: Severe kidney damage GFR 15-29 Stage 5: Severe kidney damage GFR <15 ESRD - chronic treatment by dialysis or transplant Performed By: #### C P, CDP #### [facility] [address] [place] [address] Rn Er: Joelle Parker MD Urea nitrogen [Mass/Vol] 17 mg/dL Normal 6-20 [facility] Comment on above: Performed By: #### C P, CDP #### [facility] [address] [place] [address] Dr[place], [place] [id number] Rn Er: Joelle Parker MD D-Dimer Teston 01-20-2022 D-Dimer Test 2.69 mg/L FEU High 0.00-0.59 [facility] Comment on above: Result Comment: [...] with distal DVT. Performed By: #### D MARISOL #### [address] [place] [address] Rn Er: Joelle Parker MD Flu A/B Ag Detectionon 01-20 Flu A/B Ag Detection Specimen Descriptio n .NASOPHARYNGEAL SWAB Direct Exam NEGATIVE for Influenza A + B antigens. PCR testing to confirm this result is available upon request. Specimen will be saved in the laboratory for 7 days. Please call [phone] if PCR testing is indicated. Report Status FINAL 01/20/2022 Normal [facility] Comment on above: Performed By: #### C P, CDP #### [facility] [address] [place] [address] [place] [address] Rn Er: Joelle Parker MD LACTIC ACID, WHOLE BLOODon 0 01-20-2022 Interpretation and review of laboratory results Abnormal [facility] Lactic Acid, Whole Blood 2.5 mmol/L High 0.7 - 2.1 mmol/L [facility] - Chemistry and C hemistry - challengeon 01-20-2022 Hemoglobin.gastrointesti nal spec 1 Ql (Stl) 11.1 g/dL Low 13.0 - 17.0 g/dL [facility] Albumin [Mass/Vol] 3.3 g/dL Low 3.5 - 5.2 g/dL [facility] Albumin/Globulin [Mass ratio] 0.7 {ratio} Low [facility] ALP (Bld) [Catalytic activity/Vol] 113 U/L 40 - 129 U/L [facility] ALT [Catalytic activity/Vol] 21 U/L 5 - 41 U/L [facility] Anion gap [Moles/Vol] 7 mmol/L Low 9 - 17 mmol/L [facility] AST [Catalytic activity/Vol] 18 U/L <40 [facility] Bilirubin [Mass/Vol] 0.55 mg/dL 0.3 - 1 .2 mg/dL [facility] Calcium [Mass/Vol] 9.1 mg/dL 8.6 - 10. 4 mg/dL [facility] Chloride [Moles/Vol] 99 mmol/L 98 - 10 7 mmol/L [facility] CO2 [Moles/Vol] 27 mmol/L 20 - 31 mmol/L [facility] Creatinine [Mass/Vol] 0.7 mg/dL 0.70 - 1.20 mg/dL [facility] Free PSA/Total PSA [Mass fraction] 8.3 g/dL 6.4 - 8.3 g/dL [facility] GFR/1.73 sq M.predicted MDRD (S/P/Bld) [Vol rate/Area] [facility] Comment on above: Average GFR for 40-4 9 years old: 99 mL/min/1.73sq m Chronic Kidney Disease: <60 mL/min/1.73sq m Kidney failure: <15 mL/min/1.73sq m eGFR calculated using average adult body mass. Additional eGFR calculator available at: http://www.[employer]/multiple_crcl_2011.htm Stage 1: Some kidney damage normal GFR Stage 2: Mild kidney damage GFR 60-89 Stage 3: Moderate kidney damage GFR 30-59 Stage 4: Severe kidney damage GFR 15-29 Stage 5: Severe kidney damage GFR <15 ESRD - chronic treatment by dialysis or transplant Glucose [Mass/Vol] 104 mg/dL High 70 - 99 mg/dL [facility] Natriuretic peptide B (Bld) [Mass/Vol] 93 pg/mL <300 [facility] Comment on above: An age-independent cutoff point of 300 pg/ml has a 98% negative predictive value excluding acute heart failure. Potassium [Moles/Vol] 4.3 mmol/L 3.7 - 5.3 mmol/L [facility] Sodium [Moles/Vol] 133 mmol/L Low 135 - 144 mmol/L [facility] Urea nitrogen (BldV) [Mass/Vol] 17 mg/dL 6 - 20 mg/dL [facility] Urea nitrogen/Creatinine (Bld) [Mass ratio] 24 High [facility] Ketones Ql (U) Negative NEGATIVE [facility] - Hematology and Cell countson 01-20-2022 Basophils (Bld) [#/Vol] 0.00 10*3/uL [facility] Basophils/100 WBC (Bld) 0 % 0 - 2 % [facility] Eosinophils/100 WBC (Bld) 2 % 1 - 4 % [facility] Hematocrit (Bld) [Volume fraction] 35.3 % Low 40.7 - 50.3 % [facility] Immature granulocytes/100 WBC (Bld) 0 % 0 [facility] Lymphocytes/100 WBC (Bld) 6 % Low 24 - 43 % [facility] MCH (RBC) [Entitic mass] 27.5 pg 25. 2 - 33.5 pg [facility] MCHC (RBC) [Mass/Vol] 31.4 g/dL 28.4 - 34.8 g/dL [facility] MCV (RBC) [Entitic vol] 87.6 fL 82.6 - 102.9 fL [facility] Monocytes/100 WBC (Bld) 1 % Low 3 - 12 % [facility] Morphology Adis (Bld) [Interp] ANISOCYTOSIS PRESENT [facility] Platelet distribution width (Bld) [Ratio] 16.4 % High 11.8 - 14.4 % [facility] Platelet mean volume (Bld) [Entitic vol] 8.7 fL 8.1 - 13.5 fL [facility] Platelets (Bld) [#/Vol] 130 10*3/uL Low [facility] RBC (Bld) [#/Vol] 4.03 10*6/uL Low 4.21 - 5.7 7 m/uL [facility] Segmented neutrophils/100 WBC (Bld) 91 % High 36 - 65 % [facility] WBC (Bld) [#/Vol] 10.6 10*3/uL [facility] Laboratory - Microbiology an d Antimicrobial susceptibilityon 01-20-2022 SARS-CoV-2 (COVID-19) RNA CHARO+probe Ql (Unsp spec) Not detected Not Detected [facility] Comment on above: Rapid NAAT: The specimen [...] management decisions. Fact sheet for Healthcare Providers: https://www.fda.gov/media/805050/download Fact sheet for Patients: https://www.fda.gov/media/793197/download Methodology: [facility] Nucleic Acid Amplification Laboratory - Urinalysison Leukocyte esterase Test strip Ql (U) Negative NEGATIVE [facility] Lactate, Sepsison 01-20-2022 Lactic Acid, Sepsis 2.6 mmol/L High 0.5-1.9 [facility] Comment on above: Performed By: #### C P, CDP #### [facility] [address] [place] [address] Rn Er: Joelle Parker MD Lactic Acid, Sepsis 1.7 mmol/L Normal 0.5-1.9 [facility] Comment on above: Performed By: #### A LCB #### [facility] [address] [place] [address] Rn Er: Joelle Parker MD Lactic Acid, Sepsis 1.3 mmol/L Normal 0.5-1.9 [facility] Comment on above: Performed By: #### C P, CDP #### [facility] [address] [place] [address] Rn Er: Joelle Parker MD Lactic Acid, Sepsis 1.9 mmol/L Normal 0.5-1.9 [facility] Comment on above: Performed By: #### C P, CDP #### [facility] [address] [place] [address] Rn Er: Joelle Parker MD No Panel Informationon 01-20 Interpretation and review of laboratory results Abnormal [facility] Lactic Acid, Sepsis 2.6 mmol/L High 0.5 - 1. 9 mmol/L [facility] No evidence of pulmonary embolism or acute thoracic aortic abnormality. Improving aeration. Scattered airspace opacities are present throughout the lungs bilaterally to a mild degree, overall improved from prior, possibly representing residual pneumonia. PN RIS CONSOLIDATED EXAMINATION: CTA OF THE [...] Abdomen: The visualized upper abdomen is unremarkable. [facility] RIS CONSOLIDATED Amilcar Fang MD [...] improved from prior, possibly representing residual pneumonia. [employer] Phone: Radiology Study observation (narrative) [employer]Sun Phone: D-Dimer, Quant 2.69 High [facility] Comment on above: When combined [...] Interpretation and review of laboratory results Abnormal [facility] Poor data quality, interpretation may be adversely affected Sinus tachycardia Otherwise normal ECG When compared with ECG of 10-JAN-2022 20:20, No significant change was found Confirmed by Valery Canela MD ([id number]) on 01/20/2022 6:02:54 PM [facility] Valery Canela MD - 01/20/2022 Poor data quality, interpretation may be adversely affected Sinus tachycardia Otherwise normal ECG When compared with ECG of 10-JAN-2022 20:20, No significant change was found Confirmed by Valery Canela MD ([id number]) on 01/20/2022 6:02:54 PM [facility] Work Phone: Lactic Acid, Sepsis 1.7 mmol/L 0.5 - 1. 9 mmol/L [facility] Lactic Acid, Sepsis 1.3 mmol/L 0.5 - 1. 9 mmol/L [facility] Absolute Eos # 0.21 [facility] Absolute Immature Granulocyte 0.00 [facility] Absolute Lymph # 0.64 Low [facility] alth Absolute Tama # 0.11 [facility] Interpretation and review of laboratory results Abnormal [facility] NRBC Automated 0.0 0.0 per 100 WBC [facility] Segs [facility].64 [facility] GFR >60 >60 mL/min [facility] GFR Non- >60 >60 mL/min [facility] Interpretation and review of laboratory results Abnormal [facility] Troponin, High Sensitivity <6 0 - 22 ng/L [facility] Comment on above: High Sensitivity Troponin values cannot be compared with other Troponin methodologies. Patients with high levels of Biotin oral intake (i.e >5mg/day) may have falsely decreased Troponin levels. Samples collected within 8 hours of biotin intake may require additional information for diagnosis. [facility] - [facility] Bacteria, UA 1+ Abnormal None [facility] Epithelial Cells UA 0 TO 2 [facility] Interpretation and review of laboratory results Abnormal [facility] Mucus, UA 1+ Abnormal None [facility] RBC, UA 50 TO 100 [facility] WBC, UA None [facility] Bilirubin Urine Negative NEGATIVE [facility] Color, UA Yellow Yellow [facility] Glucose, Ur Negative NEGATIVE [facility] Interpretation and review of laboratory results Abnormal [facility] Nitrite, Urine Negative NEGATIVE [facility] pH, UA 7.5 [facility] Protein, UA Negative NEGATIVE [facility] Specific [place], UA 1.025 High [facility] Turbidity UA Clear Clear [facility] Urine Hgb 3+ Abnormal NEGATIVE [facility] Urobilinogen, Urine Normal Normal [facility] Lactic Acid, Sepsis 1.9 mmol/L 0.5 - 1. 9 mmol/L [facility] Direct Exam NEGATIVE for Influenza A + B antigens. PCR testing to confirm this result is available upon request. Specimen will be saved in the laboratory for 7 days. Please call [phone] if PCR testing is indicated. [facility] Specimen Description .NASOPHARYNGEAL SWAB [facility] Specimen Description .NASOPHARYNGEAL SWAB [facility] Diffuse interstitial opacities may represent mild edema or atypical infection. MHPN RIS CONSOLIDATED EXAMINATION: ONE XRAY VIEW [...] pneumothorax identified. Osseous structures are grossly unchanged. PN RIS Miky Pollock, DO - 01/20/2022 EXAMINATION: ONE XRAY VIEW [...] may represent mild edema or atypical infection. [employer] Phone: Radiology Study observation (narrative) [employer]ualSun Phone: No Panel InformationOrdered By: Amilcar Fang on 01-20-2022 [employer] Phone: No Panel InformationOrdered By: Valery Canela on 01-20-2022 Atrial Rate 133 BPM [employer] Phone: P [place] 54 degrees [employer]anium Phone: P-R Interval 122 ms [employer] Phone: Q-T Interval 288 ms [employer] Phone: QRS Duration 76 ms [employer] Phone: QTc Calculation (Bazett) 428 ms [employer] Phone: R [place] 78 degrees Tanium Phone: T [place] 61 degrees Tanium Phone: Ventricular Rate 133 BPM [employer] Work Phone: [facility] [employer] Work Phone: No Panel InformationOrdered By: Miky Campbell on 01-20-2022 [facility] [employer] Phone: [id number] 01-20-2022 SARS-CoV-2 (COVID-19) RNA CHARO+probe Ql (Unsp spec) Not detected Normal NOTDET [facility] Comment on above: Result Comment: Rapid NAAT: [...] management decisions. Fact sheet for Healthcare Providers: https://www.fda.gov/media/946282/download Fact sheet for Patients: https://www.fda.gov/media/617807/download Methodology: Isothermal Nucleic Acid Amplification Performed By: #### C OVRB #### [facility] [address] [place] [id number] Rn Er: Joelle Parker MD Troponinon 01-20-2022 Troponin, High Sens <6 Normal 0-22 [facility] Comment on above: Result Comment: High Sensitivity Troponin values cannot be compared with other Troponin methodologies. Patients with high levels of Biotin oral intake (i.e >5mg/day) may have falsely decreased Troponin levels. Samples collected within 8 hours of biotin intake may require additional information for diagnosis. Performed By: #### C P, CDP #### [facility] [address] [place] [address] Rn Er: Joelle Parker MD Urinalysis, Routineon 2021 Bilirubin, SemiQt,Ur Negative Normal NEG [facility] Comment on above: Performed By: #### C P, CDP #### [facility] [address] [place] [address] Dr[address] [place], [place] [id number] Rn Er: Joelle Parker MD Blood, Urine 3+ Abnormal NEG [facility] Comment on above: Performed By: #### C P, CDP #### [facility] [address] [place], [place] [id number] Rn Er: Joelle Parker MD Clarity (U) Clear Normal CLEAR [facility] Comment on above: Performed By: #### C P, CDP #### [address] [place], [place] [id number] Rn Er: Joelle Parker MD Color (U) Yellow Normal YEL [facility] Comment on above: Performed By: #### C P, CDP #### [facility] [address] [place] [address] Dr[address] [place], [place] [id number] Rn Er: Joelle Parker MD Glucose Ql (U) Negative Normal NEG [facility] Comment on above: Performed By: #### C P, CDP #### [address] [place], [place] [phone] Rn Er: Joelle Parker MD Ketones Ql (U) Negative Normal NEG [facility] Comment on above: Performed By: #### C P, CDP #### [facility] [address] [place] [address] [place] [address] Rn Er: Joelle Parker MD Leukocyte esterase Test strip Ql (U) Negative Normal NEG [facility] Comment on above: Performed By: #### C P, CDP #### [address] [place], [place] [phone] Rn Er: Joelle Parker MD Nitrite,Ur Negative Normal [facility] Comment on above: Performed By: #### C P, CDP #### [facility] [address] [place] [address] Dr[place], [place] [id number] Rn Er: Joelle Parker MD PH,Ur 7.5 Normal 5.0-9.0 [facility] Comment on above: Performed By: #### C P, CDP #### [facility] [address] [place], [place] [id number] Rn Er: Joelle Parker MD Protein Ql (U) Negative Normal NEG [facility] Comment on above: Performed By: #### C P, CDP #### [address] [place], [place] [id number] Rn Er: Joelle Parker MD Spec. [place],Ur 1.025 High 1.010-1.020 [facility] Comment on above: Performed By: #### C P, CDP #### [address] [place], [place] [id number] Rn Er: Joelle Parker MD Urobilinogen,Ur Normal Normal NORM [facility] Comment on above: Performed By: #### C P, CDP #### [address] [place], [place] [id number] Rn Er: Joelle Parker MD Urinalysis,Microon 2 ----- Normal [facility] Comment on above: Performed By: #### C P, CDP #### [facility] [address] [place] [address] [place] [address] Rn Er: Joelle Parker MD Bacteria 1+ Abnormal NONE [facility] Comment on above: Performed By: #### C P, CDP #### [address] [place], [place] [id number] Rn Er: Joelle Parker MD Epithelial cells LM Ql (Urine sed) 0 TO 2 Normal 0-5 [facility] Comment on above: Performed By: #### C P, CDP #### [facility] [address] [place], [place] [id number] Rn Er: Joelle Parker MD Mucus Strands 1+ Abnormal NONE [facility] Comment on above: Performed By: #### C P, CDP #### [facility] [address] [place], [place] [id number] Rn Er: Joelle Parker MD Urine RBC's 50 TO 100 Normal 0-2 [facility] Comment on above: Performed By: #### C P, CDP #### [facility] [address] [place] [address] Rn Er: Joelle Parker MD Urine WBC's None Normal 0-5 [facility] Comment on above: Performed By: #### C P, CDP #### [facility] [address] [place] [address] Rn Er: Joelle Parker MD XR CHEST PORTABLEon 01-21-20 [...] Miky Campbell DO 01/20/22 Final result Normal [facility] Acetaminophenon 01-10-2022 Acetaminophen [Mass/Vol] ug/mL Low 10-30 [facility] Comment on above: Performed By: #### A LCB #### [facility] [address] [place] [address] Rn Er: Joelle Parker MD Acetaminophen Levelon 2021 Acetaminophen Level <5 Low 10 - 30 ug/mL [facility] Interpretation and review of laboratory results Abnormal [facility] CBC with Auto Differentialon 01-10-2022 Absolute Eos # 0.19 [facility] th Absolute Immature Granulocyte 0.09 [facility] Absolute Lymph # 0.97 Low [facility] alth Absolute Tama # 0.66 [facility] lth Basophils (Bld) [#/Vol] 0.03 10*3/uL [facility] Basophils/100 WBC (Bld) 0 % 0 - 2 % [facility] Eosinophils/100 WBC (Bld) 2 % 1 - 4 % [facility] Hematocrit (Bld) [Volume fraction] 28.4 % Low 40.7 - 50.3 % [facility] Hemoglobin.gastrointesti nal spec 1 Ql (Stl) 8.8 g/dL Low 13.0 - 17.0 g/dL [facility] Immature granulocytes/100 WBC (Bld) 1 % High 0 [facility] Interpretation and review of laboratory results Abnormal [facility] Lymphocytes/100 WBC (Bld) 11 % Low 24 - 43 % [facility] MCH (RBC) [Entitic mass] 27.7 pg 25. 2 - 33.5 pg [facility] MCHC (RBC) [Mass/Vol] 31.0 g/dL 28.4 - 34.8 g/dL [facility] MCV (RBC) [Entitic vol] 89.3 fL 82.6 - 102.9 fL [facility] Monocytes/100 WBC (Bld) 8 % 3 - 12 % [facility] NRBC Automated 0.0 0.0 per 100 WBC [facility] Platelet distribution width (Bld) [Ratio] 14.3 % 11.8 - 14.4 % [facility] Platelet mean volume (Bld) [Entitic vol] 9.5 fL 8.1 - 13.5 fL [facility] Platelets (Bld) [#/Vol] 305 10*3/uL [facility] RBC (Bld) [#/Vol] 3.18 10*6/uL Low 4.21 - 5.7 7 m/uL [facility] Segmented neutrophils/100 WBC (Bld) 78 % High 36 - 65 % [facility] Segs Absolute 6.79 [facility] h WBC (Bld) [#/Vol] 8.7 10*3/uL [facility] CBC with Diffon 01-10-2022 Abs. Basophil 0.03 k/uL Normal 0.00-0.20 [facility] Comment on above: Performed By: #### A LCB #### [facility] [address] [place] [address] Dr. [place], [place] [id number] Rn Er: Joelle Parker MD Abs.Imm.Granulocyte 0.09 k/uL Normal 0.00-0.30 [facility] Comment on above: Performed By: #### A LCB #### [address] [place], [place] [id number] Rn Er: Joelle Parker MD Abs.Neutrophil (Seg) 6.79 k/uL Normal 1.50-8.10 [facility] Comment on above: Performed By: #### A LCB #### [address] [place], [place] [phone] Rn Er: Joelle Parker MD Basophils/100 WBC (Bld) 0 % Normal 0-2 [facility] Comment on above: Performed By: #### A LCB #### [address] [place], [place] [id number] Rn Er: Joelle Parker MD Eosinophils (Bld) [#/Vol] 0.19 10*3/uL Normal 0.00-0.44 [facility] Comment on above: Performed By: #### A LCB #### [facility] [address] [place] [address] Dr. [place], [place] [id number] Rn Er: Joelle Parker MD Eosinophils/100 WBC (Bld) 2 % Normal 1-4 [facility] Comment on above: Performed By: #### A LCB #### [address] [place], [place] [phone] Rn Er: Joelle Parker MD Erythrocyte distribution width (RBC) [Ratio] 14.3 % Normal 11.8-14.4 [facility] Comment on above: Performed By: #### A LCB #### [facility] [address] [place] [address] Dr. [place], [place] [address] Rn Er: Joelle Parker MD Hematocrit (Bld) [Volume fraction] 28.4 % Low 40.7-50.3 [facility] Comment on above: Performed By: #### A LCB #### [address] [place], [facility]83 Rn Er: Joelle Parker MD Hemoglobin (Bld) [Mass/Vol] 8.8 g/dL Low 13.0-17.0 [facility] Comment on above: Performed By: #### A LCB #### [address] [place], [facility]83 Rn Er: Joelle Parker MD Immature granulocytes/100 WBC (Bld) 1 % High 0 [facility] Comment on above: Performed By: #### A LCB #### [address] [place], [facility]83 Rn Er: Joelle Parker MD Lymphocytes (Bld) [#/Vol] 0.97 10*3/uL Low 1.10-3.70 [facility] Comment on above: Performed By: #### A LCB #### [facility] [address] [place] [address] Dr. [place], [place] [address] Rn Er: Joelle Parker MD Lymphocytes/100 WBC (Bld) 11 % Low 24-43 [facility] Comment on above: Performed By: #### A LCB #### [address] [place], [facility]83 Rn Er: Joelle Parker MD MCH (RBC) [Entitic mass] 27.7 pg Normal 25.2-33.5 [facility] Comment on above: Performed By: #### A LCB #### [address] [place], [place] [phone] Rn Er: Joelle Parker MD MCHC (RBC) [Mass/Vol] 31.0 g/dL Normal 28.4-34.8 [facility] Comment on above: Performed By: #### A LCB #### [address] [place], [place] [id number] Rn Er: Joelle Parker MD MCV (RBC) [Entitic vol] 89.3 fL Normal 82.6-102.9 [facility] Comment on above: Performed By: #### A LCB #### [address] [place], [place] [id number] Rn Er: Joelle Parker MD Monocytes (Bld) [#/Vol] 0.66 10*3/uL Normal 0.10-1.20 [facility] Comment on above: Performed By: #### A LCB #### [address] [place], [place] [id number] Rn Er: Joelle Parker MD Monocytes/100 WBC (Bld) 8 % Normal 3-12 [facility] Comment on above: Performed By: #### A LCB #### [address] [place], [place] [id number] Rn Er: Joelle Parker MD Neutrophil (Seg) 78 % High 36-65 [facility] Comment on above: Performed By: #### A LCB #### [address] [place], [place] [id number] Rn Er: Joelel Parker MD NRBC Automated 0.0 per 100 WBC Normal 0.0 [facility] Comment on above: Performed By: #### A LCB #### [address] [place], [place] [id number] Rn Er: Joelle Parker MD Platelet mean volume (Bld) [Entitic vol] 9.5 fL Normal 8.1-13.5 [facility] Comment on above: Performed By: #### A LCB #### [facility] [address] [place] [address] Rn Er: Joelle Parker MD Platelets (Bld) [#/Vol] 305 10*3/uL Normal 138-453 [facility] Comment on above: Performed By: #### A LCB #### [facility] [address] [place] [address] Rn Er: Joelle Parker MD RBC (Bld) [#/Vol] 3.18 10*6/uL Low 4.21-5.77 [facility] Comment on above: Performed By: #### A LCB #### [facility] [address] [place] [address] Rn Er: Joelle Parker MD WBC (Bld) [#/Vol] 8.7 10*3/uL Normal 3.5-11.3 [facility] Comment on above: Performed By: #### A LCB #### [facility] [address] [place] [address] Rn Er: Joelle Parker MD Comp Metabolic Profon 2021 (cont.) Normal [facility] Comment on above: Result Comment: Aver age GFR for 40-49 years old: 99 mL/min/1.73sq m Chronic Kidney Disease: <60 mL/min/1.73sq m Kidney failure: <15 mL/min/1.73sq m eGFR calculated using average adult body mass. Additional eGFR calculator available at: http://www.[employer].LoraxAg/multiple_crcl_2012.htm Performed By: #### A LCB #### [facility] [address] [place] [address] Rn Er: Joelle Parker MD Albumin [Mass/Vol] 2.7 g/dL Low 3.5-5.2 [facility] Comment on above: Performed By: #### A LCB #### [facility] [address] [place], [place] [id number] Rn Er: Joelle Parker MD Albumin/Glob Ratio 0.5 Low 1.0-2.5 [facility] Comment on above: Performed By: #### A LCB #### [facility] [address] [place], [place] [phone] Rn Er: Joelle Parker MD Alkaline Phos 138 U/L High 40-129 [facility] Comment on above: Performed By: #### A LCB #### [facility] [address] [place], [place] [id number] Rn Er: Joelle Parker MD ALT [Catalytic activity/Vol] 21 U/L Normal 5-41 [facility] Comment on above: Performed By: #### A LCB #### [facility] [address] [place], [place] [id number] Rn Er: Joelle Parker MD Anion gap [Moles/Vol] 8 mmol/L Low 9-17 [facility] Comment on above: Performed By: #### A LCB #### [facility] [address] [place] [address] Rn Er: Joelle Parker MD AST [Catalytic activity/Vol] 26 U/L Normal <40 [facility] Comment on above: Performed By: #### A LCB #### [facility] [address] [place] [address] Rn Er: Joelle Parker MD Bilirubin [Mass/Vol] 0.20 mg/dL Low 0.3-1.2 [facility] Comment on above: Performed By: #### A LCB #### [facility] [address] [place], [place] [phone] Rn Er: Joelle Parker MD BUN/CRE Ratio 16 Normal 9-20 [facility] Comment on above: Performed By: #### A LCB #### [facility] [address] [place], [place] [id number] Rn Er: Joelle Parker MD Calcium [Mass/Vol] 9.0 mg/dL Normal 8.6-10.4 [facility] Comment on above: Performed By: #### A LCB #### [facility] [address] [place], [place] [id number] Rn Er: Joelle Parker MD Chloride [Moles/Vol] 101 mmol/L Normal 98-107 [facility] Comment on above: Performed By: #### A LCB #### [facility] [address] [place], [place] [id number] Rn Er: Joelle Parker MD CO2 [Moles/Vol] 26 mmol/L Normal 20-31 [facility] Comment on above: Performed By: #### A LCB #### [facility] [address] [place], [place] [phone] Rn Er: Joelle Parker MD Creatinine [Mass/Vol] 0.80 mg/dL Normal 0.70-1.20 [facility] Comment on above: Performed By: #### A LCB #### [facility] [address] [place], [place] 9392483 Rn Er: Joelle Parker MD GFR, Amer >60 Normal >60 [facility] Comment on above: Performed By: #### A LCB #### [facility] [address] [place], [place] [id number] Rn Er: Joelle Parker MD GFR,non Amer >60 Normal >60 [facility] Comment on above: Performed By: #### A LCB #### [facility] [address] [place], [place] [id number] Rn Er: Joelle Parker MD Glucose [Mass/Vol] 98 mg/dL Normal 70-99 [facility] Comment on above: Performed By: #### A LCB #### [facility] [address] [place] [address] Rn Er: Joelle Parker MD Potassium [Moles/Vol] 4.2 mmol/L Normal 3.7-5.3 [facility] Comment on above: Performed By: #### A LCB #### [facility] [address] [place], [place] [id number] Rn Er: Joelle Parker MD Protein [Mass/Vol] 8.1 g/dL Normal 6.4-8.3 [facility] Comment on above: Performed By: #### A LCB #### [facility] [address] [place] [address] Rn Er: Joelle Parker MD Sodium [Moles/Vol] 135 mmol/L Normal 135-144 [facility] Comment on above: Performed By: #### A LCB #### [facility] [address] [place], [place] [id number] Rn Er: Joelle Parker MD Staging: Normal [facility] Comment on above: Result Comment: Stag e 1: Some kidney damage normal GFR Stage 2: Mild kidney damage GFR 60-89 Stage 3: Moderate kidney damage GFR 30-59 Stage 4: Severe kidney damage GFR 15-29 Stage 5: Severe kidney damage GFR <15 ESRD - chronic treatment by dialysis or transplant Performed By: #### A LCB #### [facility] [address] [place], [place] [phone] Rn Er: Joelle Parker MD Urea nitrogen [Mass/Vol] 13 mg/dL Normal 6-20 [facility] Comment on above: Performed By: #### A LCB #### [facility] [address] [place] [address] Rn Er: Joelle Parker MD Comprehensive Metabolic Pane nevin 01-10-2022 Albumin [Mass/Vol] 2.7 g/dL Low 3.5 - 5.2 g/dL [facility] Albumin/Globulin [Mass ratio] 0.5 {ratio} Low [facility] ALP (Bld) [Catalytic activity/Vol] 138 U/L High 40 - 129 U/L [facility] ALT [Catalytic activity/Vol] 21 U/L 5 - 41 U/L [facility] Anion gap [Moles/Vol] 8 mmol/L Low 9 - 17 mmol/L [facility] AST [Catalytic activity/Vol] 26 U/L <40 [facility] Bilirubin [Mass/Vol] 0.20 mg/dL Low 0.3 - 1 .2 mg/dL [facility] Calcium [Mass/Vol] 9.0 mg/dL 8.6 - 10. 4 mg/dL [facility] Chloride [Moles/Vol] 101 mmol/L 98 - 10 7 mmol/L [facility] CO2 [Moles/Vol] 26 mmol/L 20 - 31 mmol/L [facility] Creatinine [Mass/Vol] 0.8 mg/dL 0.70 - 1.20 mg/dL [facility] Free PSA/Total PSA [Mass fraction] 8.1 g/dL 6.4 - 8.3 g/dL [facility] GFR >60 >60 mL/min [facility] GFR Non- >60 >60 mL/min [facility] Glucose [Mass/Vol] 98 mg/dL 70 - 99 mg/dL [facility] Potassium [Moles/Vol] 4.2 mmol/L 3.7 - 5.3 mmol/L [facility] Sodium [Moles/Vol] 135 mmol/L 135 - 144 mmol/L [facility] Urea nitrogen (BldV) [Mass/Vol] 13 mg/dL 6 - 20 mg/dL [facility] Urea nitrogen/Creatinine (Bld) [Mass ratio] 16 [facility] Ethanolon 01-10-2022 Ethanol [Mass/Vol] mg/dL <10 mg/dL [facility] Ethanol percent <0.010 <0.010 % [facility] Ethanol Alcoholon 01-10-2022 Ethanol [Mass/Vol] mg/dL Normal <10 [facility] Comment on above: Performed By: #### A LCB #### [facility] [address] [place] [address] Rn Er: Joelle Parker MD Ethanol percent <0.010 Normal <0.010 [facility] Comment on above: Performed By: #### A LCB #### [facility] [address] [place], [place] [id number] Rn Er: Joelle Parker MD Laboratory - Chemistry and C hemistry - challengeon 01-10-2022 GFR/1.73 sq M.predicted MDRD (S/P/Bld) [Vol rate/Area] [facility] Comment on above: Average GFR for 40-4 9 years old: 99 mL/min/1.73sq m Chronic Kidney Disease: <60 mL/min/1.73sq m Kidney failure: <15 mL/min/1.73sq m eGFR calculated using average adult body mass. Additional eGFR calculator available at: http://www.[employer]/multiple_crcl_2012.htm Stage 1: Some kidney damage normal GFR Stage 2: Mild kidney damage GFR 60-89 Stage 3: Moderate kidney damage GFR 30-59 Stage 4: Severe kidney damage GFR 15-29 Stage 5: Severe kidney damage GFR <15 ESRD - chronic treatment by dialysis or transplant No Panel Informationon 01-10 Interpretation and review of laboratory results Abnormal [facility] Salicylateon 01-10-2022 Salicylate <1 Low 3-10 [facility] Comment on above: Performed By: #### B C #### [facility] [address] [place], [place] [id number] Rn Er: Joelle Parker MD Salicylate Lvl <1 Low 3 - 10 mg/dL [facility] XR FOOT LEFT (MIN 3 VIEWS)on 01-10-2022 [...] by: Roscoe Ferrer 01/10/22 Final result Normal [facility] Soft tissue defect over the posterior aspect of the ankle with surrounding soft tissue swelling and likely an effusion in Kager's fat pad. No underlying osseous findings to suggest osteomyelitis. Cannot exclude soft tissue infection [facility] EXAMINATION: THREE XRAY VIEWS OF THE [...] No underlying bony changes to suggest osteomyelitis. [facility] Roscoe Ferrer - 01/10/2022 EXAMINATION: THREE [...] suggest osteomyelitis. Cannot exclude soft tissue infection [facility] [employer] Work Phone: Radiology Study observation (narrative) [facility] Work Phone: XR FOOT LEFT (MIN 3 VIEWS)Or dered By: Roscoe Ferrer on 01-10-2022 [email or web address] Work Phone: Basic Metabolic Panel w/ Ref rebecca to MGon 12-20-2021 Anion gap [Moles/Vol] 8 mmol/L Low 9 - 17 mmol/L [email or web address] Calcium [Mass/Vol] 7.7 mg/dL Low 8.6 - 10. 4 mg/dL [email or web address] Chloride [Moles/Vol] 99 mmol/L 98 - 10 7 mmol/L [email or web address] CO2 [Moles/Vol] 23 mmol/L 20 - 31 mmol/L [email or web address] Creatinine [Mass/Vol] 0.82 mg/dL 0.70 - 1.20 mg/dL [email or web address] GFR >60 >60 mL/min [employer] GFR Non- >60 >60 mL/min [email or web address] GFR/1.73 sq M.predicted MDRD (S/P/Bld) [Vol rate/Area] [email or web address] Comment on above: Average GFR for 30-3 9 years old: 107 mL/min/1.73sq m Chronic Kidney Disease: <60 mL/min/1.73sq m Kidney failure: <15 mL/min/1.73sq m eGFR calculated using average adult body mass. Additional eGFR calculator available at: http://www.OyaGen/multiple_crcl_2012.htm GFR/1.73 sq M.predicted MDRD (S/P/Bld) [Vol rate/Area] NOT REPORTED [email or web address] Glucose [Mass/Vol] 110 mg/dL High 70 - 99 mg/dL [email or web address] Interpretation and review of laboratory results Abnormal [email or web address] Potassium [Moles/Vol] 4.6 mmol/L 3.7 - 5.3 mmol/L [email or web address] Sodium [Moles/Vol] 130 mmol/L Low 135 - 144 mmol/L [email or web address] Urea nitrogen (BldV) [Mass/Vol] 15 mg/dL 6 - 20 mg/dL [email or web address] Urea nitrogen/Creatinine (Bld) [Mass ratio] NOT REPORTED [email or web address] IR ARTHR/ASP/INJ MAJOR JT/BU RSA RIGHT WO USon 12-20-2021 Successful fluoroscopic-guided right shoulder aspiration. [facility]IS CONSOLIDATED EXAMINATION: Fluoroscopic guided right shoulder [...] minutes DAP 2 cGy cm 2 PROCEDURE: COLLECTION SUPERVISOR: Everett Anderson This procedure was performed by Everett Anderson PA-C under indirect supervision of Dr. Dyson. Informed consent was obtained after a detailed explanation of the procedure including risks, benefits, and alternatives. [place] protocol was observed using maximum sterile barrier [...] and left the Department in stable condition. [facility] Darryl Dyson MD - 12/20/2021 EXAMINATION: [...] minutes DAP 2 cGy cm 2 PROCEDURE: COLLECTION SUPERVISOR: Everett Anderson This procedure was performed by Everett Anderson PA-C under indirect supervision of Dr. Dyson. Informed consent was obtained after a detailed explanation of the procedure including risks, benefits, and alternatives. [place] protocol was observed using maximum sterile barrier [...] condition. IMPRESSION: Successful fluoroscopic-guided right shoulder aspiration. [email or web address] Work Phone: Radiology Study observation (narrative) [employer] Work Phone: IR ARTHR/ASP/INJ MAJOR JT/BU RSA RIGHT WO USOrdered By: Darryl Dyson on 12-20-2021 [email or web address] Work Phone: No Panel Informationon 12-20 [email or web address] VANCOMYCIN, RANDOMon 022 Vancomycin Random Date last dose NOT REPORTED [email or web address] Vancomycin Random Dose amount NOT REPORTED [email or web address] Vancomycin Random Time last dose NOT REPORTED [email or web address] Vancomycin Rm 32.8 ug/mL [employer] [facility] Comment on above: Higher trough serum vancomycin concentrations of 15-20 ug/mL are recommended for complicated infections such as bacteremia, endocarditis, osteomyelitis, meningitis, and hospital acquired pneumonia. Basic Metabolic Panel w/ Ref rebecca to MGon 12-19-2021 Anion gap [Moles/Vol] 9 mmol/L 9 - 17 mmol/L [email or web address] Calcium [Mass/Vol] 8.4 mg/dL Low 8.6 - 10. 4 mg/dL [email or web address] Chloride [Moles/Vol] 101 mmol/L 98 - 10 7 mmol/L [employer] CO2 [Moles/Vol] 22 mmol/L 20 - 31 mmol/L [employer] Creatinine [Mass/Vol] 0.72 mg/dL 0.70 - 1.20 mg/dL [email or web address] GFR >60 >60 mL/min [employer] GFR Non- >60 >60 mL/min [email or web address] GFR/1.73 sq M.predicted MDRD (S/P/Bld) [Vol rate/Area] [email or web address] Comment on above: Average GFR for 30-3 9 years old: 107 mL/min/1.73sq m Chronic Kidney Disease: <60 mL/min/1.73sq m Kidney failure: <15 mL/min/1.73sq m eGFR calculated using average adult body mass. Additional eGFR calculator available at: http://www.[employer]/multiple_crcl_2012.htm GFR/1.73 sq M.predicted MDRD (S/P/Bld) [Vol rate/Area] NOT REPORTED [facility] Glucose [Mass/Vol] 106 mg/dL High 70 - 99 mg/dL [facility] Potassium [Moles/Vol] 5.4 mmol/L High 3.7 - 5.3 mmol/L [facility] Sodium [Moles/Vol] 132 mmol/L Low 135 - 144 mmol/L [facility] Urea nitrogen (BldV) [Mass/Vol] 11 mg/dL 6 - 20 mg/dL [facility] Urea nitrogen/Creatinine (Bld) [Mass ratio] NOT REPORTED [facility] C-Reactive Proteinon 022 CRP [Mass/Vol] 45.9 mg/L High 0.0 - 5.0 mg/L [facility] No Panel Informationon 12-19 Interpretation and review of laboratory results Abnormal [facility] POTASSIUMon 12-19-2021 Potassium [Moles/Vol] 4.3 mmol/L 3.7 - 5.3 mmol/L [facility] TSH with Reflexon 12-19-2021 TSH Qn 2.73 m[IU]/L [facility] XR CHEST PORTABLEon 12-19-19 22 Scattered infiltrate s with right-sided PICC line. [facility] RIS CONSOLIDATED EXAMINATION: ONE XRAY [...] with the tip in the mid SVC. [facility] Conrad Aquino MD - 12/19/2021 EXAMINATION: [...] IMPRESSION: Scattered infiltrates with right-sided PICC line. [email or web address] Work Phone: Radiology Study observation (narrative) [employer] Work Phone: XR CHEST PORTABLEOrdered By: Conrad Aquino on 12-19-2021 [email or web address] Work Phone: Basic Metabolic Panel w/ Ref rebecca to MGon 12-18-2021 Anion gap [Moles/Vol] 8 mmol/L Low 9 - 17 mmol/L [email or web address] Calcium [Mass/Vol] 7.7 mg/dL Low 8.6 - 10. 4 mg/dL [email or web address] Chloride [Moles/Vol] 100 mmol/L 98 - 10 7 mmol/L [email or web address] CO2 [Moles/Vol] 20 mmol/L 20 - 31 mmol/L [email or web address] Creatinine [Mass/Vol] 0.38 mg/dL Low 0.70 - 1.20 mg/dL [email or web address] GFR >60 >60 mL/min [employer] GFR Non- >60 >60 mL/min [email or web address] GFR/1.73 sq M.predicted MDRD (S/P/Bld) [Vol rate/Area] [email or web address] Comment on above: Average GFR for 30-3 9 years old: 107 mL/min/1.73sq m Chronic Kidney Disease: <60 mL/min/1.73sq m Kidney failure: <15 mL/min/1.73sq m eGFR calculated using average adult body mass. Additional eGFR calculator available at: http://www.[employer]/multiple_crcl_2012.htm GFR/1.73 sq M.predicted MDRD (S/P/Bld) [Vol rate/Area] NOT REPORTED [email or web address] Glucose [Mass/Vol] 121 mg/dL High 70 - 99 mg/dL [email or web address] Potassium [Moles/Vol] 4.1 mmol/L 3.7 - 5.3 mmol/L [facility] Sodium [Moles/Vol] 128 mmol/L Low 135 - 144 mmol/L [facility] Urea nitrogen (BldV) [Mass/Vol] 10 mg/dL 6 - 20 mg/dL [facility] Urea nitrogen/Creatinine (Bld) [Mass ratio] NOT REPORTED [facility] Body Fluid Cell Count with D ifferentialon 12-18-2021 Appearance, Fluid NOT REPORTED [facility] Basos, Fluid NOT REPORTED 0 % [facility] Color, Fluid NOT REPORTED [facility] Eos, Fluid NOT REPORTED 0 % [facility] Fluid Diff Comment NOT REPORTED [facility] Lymphocytes, Body Fluid 33 % [facility] Comment on above: The reference range and other method performance specifications have not been established for this body fluid. The test result must be integrated into the clinical context for interpretation. Monocyte Count, Fluid NOT REPORTED % [facility] Neutrophil Count, Fluid 47 % [facility] Comment on above: The reference range and other method performance specifications have not been established for this body fluid. The test result must be integrated into the clinical context for interpretation. Other Cells, Fluid MONOCYTES % [email or web address] Comment on above: The reference range and other method performance specifications have not been established for this body fluid. The test result must be integrated into the clinical context for interpretation. RBC, Fluid 5000 /mm3 [email or web address] Comment on above: The reference range and other method performance specifications have not been established for this body fluid. The test result must be integrated into the clinical context for interpretation. Specimen type Nom (Spec) .SYNOVIAL FLUID [email or web address] Comment on above: LEFT ANKLE WBC, Fluid 1126 /mm3 [email or web address] Comment on above: The reference range and other method performance specifications have not been established for this body fluid. The test result must be integrated into the clinical context for interpretation. [email or web address] Appearance, Fluid NOT REPORTED [facility] Basos, Fluid NOT REPORTED 0 % [facility] Color, Fluid NOT REPORTED [facility] Eos, Fluid NOT REPORTED 0 % [facility] Fluid Diff Comment NOT REPORTED [facility] Lymphocytes, Body Fluid 9 % [facility] Comment on above: The reference range and other method performance specifications have not been established for this body fluid. The test result must be integrated into the clinical context for interpretation. Monocyte Count, Fluid NOT REPORTED % [facility] Neutrophil Count, Fluid 89 % M [facility] Comment on above: The reference range and other method performance specifications have not been established for this body fluid. The test result must be integrated into the clinical context for interpretation. Other Cells, Fluid MONOCYTES % [facility] Comment on above: The reference range and other method performance specifications have not been established for this body fluid. The test result must be integrated into the clinical context for interpretation. RBC, Fluid 31278 /mm3 [facility] Comment on above: The reference range and other method performance specifications have not been established for this body fluid. The test result must be integrated into the clinical context for interpretation. Specimen type Nom (Spec) LEFT [facility] Comment on above: .WRIST WBC, Fluid 89720 /mm3 [facility] Comment on above: The reference range and other method performance specifications have not been established for this body fluid. The test result must be integrated into the clinical context for interpretation. [facility] Body Fluid Crystalon 022 Crystals, Fluid Negative NEGATIVE [facility] Comment on above: NO CRYSTALS SEEN Specimen type Nom (Spec) .SYNOVIAL FLUID [facility] Comment on above: LEFT ANKLE [facility] Crystals, Fluid Negative NEGATIVE [facility] Comment on above: NO CRYSTALS SEEN Specimen type Nom (Spec) .SYNOVIAL FLUID [facility] Crystals, Fluid Negative NEGATIVE [facility] Comment on above: NO CRYSTALS SEEN Specimen type Nom (Spec) .SYNOVIAL FLUID [facility] Culture, Blood 2 Bacteria identified Cx Nom (Unsp spec) Positive Abnormal [facility] Bacteria identified Cx Nom (Unsp spec) DIRECT GRAM STAIN FROM BOTTLE: GRAM POSITIVE COCCI IN CLUSTERS [facility] Bacteria identified Cx Nom (Unsp spec) METHICILLIN RESISTANT STAPHYLOCOCCUS AUREUS Abnormal [facility] Bacteria identified Cx Nom (Unsp spec) (NOTE) Direct Gram Stain from bottle result called to and read back by: ANSELMO Greene on 12/17/21 at 01:35 [facility] Interpretation and review of laboratory results Abnormal [facility] Special Requests 20ML R HAND [facility] Specimen Description .BLOOD [facility] No Panel Informationon 12-18 Interpretation and review of laboratory results Abnormal [facility] VANCOMYCIN, TROUGHon 022 Vancomycin Tr 8.6 ug/mL Low 10.0 - 20.0 ug/mL [email or web address] Comment on above: Higher trough serum vancomycin concentrations of 15-20 ug/mL are recommended for complicated infections such as bacteremia, endocarditis, osteomyelitis, meningitis, and hospital acquired pneumonia. Vancomycin Trough Date last dose NOT REPORTED [email or web address] Vancomycin Trough Dose amount NOT REPORTED [email or web address] Vancomycin Trough Time last dose NOT REPORTED [email or web address] Basic Metabolic Panel w/ Ref rebecca to MGon 12-17-2021 Anion gap [Moles/Vol] 5 mmol/L Low 9 - 17 mmol/L [employer] Calcium [Mass/Vol] 7.9 mg/dL Low 8.6 - 10. 4 mg/dL [employer] Chloride [Moles/Vol] 102 mmol/L 98 - 10 7 mmol/L [employer] CO2 [Moles/Vol] 24 mmol/L 20 - 31 mmol/L [employer] Creatinine [Mass/Vol] 0.52 mg/dL Low 0.70 - 1.20 mg/dL [email or web address] GFR >60 >60 mL/min [employer] GFR Non- >60 >60 mL/min [email or web address] GFR/1.73 sq M.predicted MDRD (S/P/Bld) [Vol rate/Area] [facility] Comment on above: Average GFR for 30-3 9 years old: 107 mL/min/1.73sq m Chronic Kidney Disease: <60 mL/min/1.73sq m Kidney failure: <15 mL/min/1.73sq m eGFR calculated using average adult body mass. Additional eGFR calculator available at: http://www.[employer]oraxAg/multiple_crcl_2012.htm GFR/1.73 sq M.predicted MDRD (S/P/Bld) [Vol rate/Area] NOT REPORTED [facility] Glucose [Mass/Vol] 97 mg/dL 70 - 99 mg/dL [email or web address] Potassium [Moles/Vol] 4.7 mmol/L 3.7 - 5.3 mmol/L [email or web address] Sodium [Moles/Vol] 131 mmol/L Low 135 - 144 mmol/L [email or web address] Urea nitrogen (BldV) [Mass/Vol] 9 mg/dL 6 - 20 mg/dL [email or web address] Urea nitrogen/Creatinine (Bld) [Mass ratio] NOT REPORTED [facility] C-Reactive Proteinon 12-17- 022 CRP [Mass/Vol] 56.1 mg/L High 0.0 - 5.0 mg/L [facility] CBC Auto Differentialon Absolute Eos # 0.12 [facility] th Absolute Immature Granulocyte 0.06 [facility] Absolute Lymph # 1.25 [facility] alth Absolute Tama # 0.68 [facility] Basophils (Bld) [#/Vol] 0.06 10*3/uL [facility] Basophils/100 WBC (Bld) 1 % 0 - 2 % [facility] [employer] Differential Type NOT REPORTED [facility] Eosinophils/100 WBC (Bld) 2 % 1 - 4 % [facility] Hematocrit (Bld) [Volume fraction] 28.4 % Low 40.7 - 50.3 % [facility] Hemoglobin.gastrointesti nal spec 1 Ql (Stl) 9.4 g/dL Low 13.0 - 17.0 g/dL [facility] Immature granulocytes/100 WBC (Bld) 1 % High 0 [facility] Interpretation and review of laboratory results Abnormal [facility] Lymphocytes/100 WBC (Bld) 20 % Low 24 - 43 % [facility] MCH (RBC) [Entitic mass] 28.0 pg 25. 2 - 33.5 pg [facility] MCHC (RBC) [Mass/Vol] 33.1 g/dL 28.4 - 34.8 g/dL [facility] MCV (RBC) [Entitic vol] 84.5 fL 82.6 - 102.9 fL [facility] Monocytes/100 WBC (Bld) 11 % 3 - 12 % [facility] NRBC Automated 0.0 0.0 per 100 WBC [facility] Platelet distribution width (Bld) [Ratio] 14.9 % High 11.8 - 14.4 % [facility] Platelet Estimate NOT REPORTED [facility] Platelet mean volume (Bld) [Entitic vol] 9.9 fL 8.1 - 13.5 fL [facility] Platelets (Bld) [#/Vol] 188 10*3/uL [facility] RBC (Bld) [#/Vol] 3.36 10*6/uL Low 4.21 - 5.7 7 m/uL [facility] RBC (Bld) [#/Vol] ANISOCYTOSIS PRESENT [facility] Segmented neutrophils/100 WBC (Bld) 65 % 36 - 65 % [facility] Segs [facility] ([facility]ld[facility] [#/Vol] 6.2 10*3/uL [facility] WBC (Bld) [#/Vol] NOT REPORTED [facility] No Panel Informationon 12-17 Interpretation and review of laboratory results Abnormal [facility] Basic Metabolic Panel w/ Ref rebecca to MGon 12-16-2021 Anion gap [Moles/Vol] 8 mmol/L Low 9 - 17 mmol/L [facility] [employer] Calcium [Mass/Vol] 7.6 mg/dL Low 8.6 - 10. 4 mg/dL [facility] Chloride [Moles/Vol] 97 mmol/L Low 98 - 10 7 mmol/L [facility] [employer] CO2 [Moles/Vol] 23 mmol/L 20 - 31 mmol/L [facility] Creatinine [Mass/Vol] 0.53 mg/dL Low 0.70 - 1.20 mg/dL [facility] GFR >60 >60 mL/min [facility] GFR Non- >60 >60 mL/min [facility] GFR/1.73 sq M.predicted MDRD (S/P/Bld) [Vol rate/Area] [facility] Comment on above: Average GFR for 30-3 9 years old: 107 mL/min/1.73sq m Chronic Kidney Disease: <60 mL/min/1.73sq m Kidney failure: <15 mL/min/1.73sq m eGFR calculated using average adult body mass. Additional eGFR calculator available at: http://www.[employer]or[employer]/multiple_crcl_2012.htm GFR/1.73 sq M.predicted MDRD (S/P/Bld) [Vol rate/Area] NOT REPORTED [facility] Glucose [Mass/Vol] 117 mg/dL High 70 - 99 mg/dL [facility] Interpretation and review of laboratory results Abnormal [facility] Potassium [Moles/Vol] 4.1 mmol/L 3.7 - 5.3 mmol/L [facility] Sodium [Moles/Vol] 128 mmol/L Low 135 - 144 mmol/L [facility] Urea nitrogen (BldV) [Mass/Vol] 10 mg/dL 6 - 20 mg/dL [facility] Urea nitrogen/Creatinine (Bld) [Mass ratio] NOT REPORTED [facility] Body Fluid Cell Count with D ifferentialon 12-16-2021 Appearance, Fluid NOT REPORTED [facility] Basos, Fluid NOT REPORTED 0 % [facility] Color, Fluid NOT REPORTED [facility] Eos, Fluid NOT REPORTED 0 % [facility] Fluid Diff Comment NOT REPORTED [facility] Lymphocytes, Body Fluid 9 % [facility] Comment on above: The reference range and other method performance specifications have not been established for this body fluid. The test result must be integrated into the clinical context for interpretation. Monocyte Count, Fluid NOT REPORTED % [facility] Neutrophil Count, Fluid 91 % [facility] Comment on above: The reference range and other method performance specifications have not been established for this body fluid. The test result must be integrated into the clinical context for interpretation. Other Cells, Fluid NOT REPORTED % [facility] RBC, Fluid <3000 /mm3 [facility] Comment on above: The reference range and other method performance specifications have not been established for this body fluid. The test result must be integrated into the clinical context for interpretation. Specimen type Nom (Spec) RIGHT [facility] Comment on above: .KNEE WBC, Fluid 6514 /mm3 [facility] Comment on above: The reference range and other method performance specifications have not been established for this body fluid. The test result must be integrated into the clinical context for interpretation. [facility] CBC WITH AUTO DIFFERENTIALon 12-16-2021 Absolute Eos # 0.11 [facility] Absolute Immature Granulocyte <0.03 [facility] Absolute Lymph # 1.12 [facility] alth Absolute Tama # 0.75 [facility] lt Basophils (Bld) [#/Vol] 0.04 10*3/uL [facility] Basophils/100 WBC (Bld) 1 % 0 - 2 % [facility] Differential Type NOT REPORTED [facility] Eosinophils/100 WBC (Bld) 2 % 1 - 4 % [facility] Hematocrit (Bld) [Volume fraction] 29.2 % Low 40.7 - 50.3 % [facility] Hemoglobin.gastrointesti nal spec 1 Ql (Stl) 9.7 g/dL Low 13.0 - 17.0 g/dL [facility] Immature granulocytes/100 WBC (Bld) 0 % 0 [facility] [facility] [place] Interpretation and review of laboratory results Abnormal [facility] Lymphocytes/100 WBC (Bld) 15 % Low 24 - 43 % [facility] [place] MCH (RBC) [Entitic mass] 27.8 pg 25. 2 - 33.5 pg [facility] [place] MCHC (RBC) [Mass/Vol] 33.2 g/dL 28.4 - 34.8 g/dL [facility] [place] MCV (RBC) [Entitic vol] 83.7 fL 82.6 - 102.9 fL [facility] [place] Monocytes/100 WBC (Bld) 10 % 3 - 12 % M [facility] NRBC Automated 0.0 0.0 per 100 WBC [facility] [place] Platelet distribution width (Bld) [Ratio] 15.0 % High 11.8 - 14.4 % [facility] [place] Platelet Estimate NOT REPORTED [facility] [place] Platelet mean volume (Bld) [Entitic vol] 10.0 fL 8.1 - 13.5 fL [facility] [place] Platelets (Bld) [#/Vol] 163 10*3/uL [facility] [place] RBC (Bld) [#/Vol] 3.49 10*6/uL Low 4.21 - 5.7 7 m/uL [facility] [place] RBC (Bld) [#/Vol] ANISOCYTOSIS PRESENT [facility] [place] Segmented neutrophils/100 WBC (Bld) 72 % High 36 - 65 % [facility] [place] [#/Vol] 7.4 10*3/uL [facility] [place] WBC (Bld) [#/Vol] NOT REPORTED [facility] Culture, Blood 1on 2 Bacteria identified Cx Nom (Unsp spec) Positive Abnormal [facility] [place] Bacteria identified Cx Nom (Unsp spec) DIRECT GRAM STAIN FROM BOTTLE: GRAM POSITIVE COCCI IN CLUSTERS [facility] [place] Bacteria identified Cx Nom (Unsp spec) METHICILLIN RESISTANT STAPHYLOCOCCUS AUREUS For susceptibility, refer to previous culture. Abnormal [facility] [place] Bacteria identified Cx Nom (Unsp spec) (NOTE) Direct Gram Stain from bottle result called to and read back by: ANSELMO Dewitt on 12/14/21 at 17:45 [facility] [place] Interpretation and review of laboratory results Abnormal [facility] Special Requests L FA 7CC Lily Raudel ras Specimen Description .BLOOD [facility] No Panel Informationon 12-16 Radiology Study observation (narrative) Lily mcginnis Work Phone: Sedimentation Rateon 022 Interpretation and review of laboratory results Abnormal [facility] [place] Sed Rate 32 mm High 0 - 15 mm [facility] VL DUP LOWER EXTREMITY VENOU S LEFTon 12-16-2021 Gordo Juárez MD - 12/16/2021 [facility] Vascular Lower Extremities DVT Study Procedure Patient Name COTY Date of Study 12/16/2021 TIP Plata Date of 1980 Gender Male Age 41 year(s) Race Room Number 0316 Height: 73 inch, 185.42 cm Corporate ID [id number] Weight: 170 pounds, 77.1 kg # Patient Acct [id number] BSA: 2.01 m^2 BMI: 22.43 kg/m^2 # MR # [id number] [employer] Vivienne Roach RVT Interpreting Physician Gordo Juárez [...] !None ! + (more content not included)... [facility]: [facility] [employer] Phone: Radiology Study observation (narrative) Lily Submittable Work Phone: VL DUP UPPER EXTREMITY VENOU S LEFTon 12-16-2021 Gordo Juárez MD - 12/16/2021 [facility] Vascular Upper Extremities Veins Procedure Patient Name COTY Date of Study 12/16/2021 TIP Plata Date of 1980 Gender Male Age 41 year(s) Race Room Number 0316 Height: 73 inch, 185.42 cm Corporate ID [id number] Weight: 170 pounds, 77.1 kg # Patient Acct [id number] BSA: 2.01 m^2 BMI: 22.43 kg/m^2 # MR # [id number] [employer] Vivienne Roach RVT Interpreting Physician Gordo Juárez [...] ! + --------- (more content not included)... [email or web address] Work Phone: Radiology Study observation (narrative) [employer] Phone: VL DUP UPPER EXTREMITY VENOU S LEFTOrdered By: Gordo Juárez on 12-16-2021 [email or web address] Work Phone: XR KNEE RIGHT (3 VIEWS)on No acute abnormality of the knee. [facility] EXAMINATION: THREE XRAY VIEWS OF THE RIGHT KNEE 12/16/2021 2:02 pm COMPARISON: None. HISTORY: ORDERING SYSTEM PROVIDED HISTORY: Trauma/Fracture TECHNOLOGIST PROVIDED HISTORY: Trauma/Fracture FINDINGS: No evidence of acute fracture or dislocation. No focal osseous lesion. No evidence of joint effusion. No focal soft tissue abnormality. [facility] Addy Gates MD - 12/16/2021 EXAMINATION: THREE XRAY VIEWS OF THE RIGHT KNEE 12/16/2021 2:02 pm COMPARISON: None. HISTORY: ORDERING SYSTEM PROVIDED HISTORY: Trauma/Fracture TECHNOLOGIST PROVIDED HISTORY: Trauma/Fracture FINDINGS: No evidence of acute fracture or dislocation. No focal osseous lesion. No evidence of joint effusion. No focal soft tissue abnormality. IMPRESSION: No acute abnormality of the knee. [employer] Phone: XR KNEE RIGHT (3 VIEWS)Order ed By: Addy Gates on 12-16-2021 [employer] Phone: XR SHOULDER RIGHT (MIN 2 VIE WS)on 12-16-2021 No acute osseous abnormality. [facility] EXAMINATION: THREE XRAY VIEWS OF THE RIGHT SHOULDER 12/16/2021 2:02 pm COMPARISON: None. HISTORY: ORDERING SYSTEM PROVIDED HISTORY: Trauma/Fracture TECHNOLOGIST PROVIDED HISTORY: Trauma/Fracture FINDINGS: Glenohumeral joint is normally aligned. No evidence of acute fracture or dislocation. No abnormal periarticular calcifications. The AC joint is unremarkable in appearance. Right PICC with tip in the superior vena cava. [facility] Addy Gates MD - 12/16/2021 EXAMINATION: [...] vena cava. IMPRESSION: No acute osseous abnormality. [email or web address] Work Phone: [employer] Phone: C-REACTIVE PROTEINon 022 CRP [Mass/Vol] 62.9 mg/L High 0.0 - 5.0 mg/L [email or web address] CBC WITH AUTO DIFFERENTIALon 12-15-2021 Absolute Eos # 0.25 [facility] Absolute Immature Granulocyte 0.08 [email or web address] Absolute Lymph # 1.25 [employer] [facility] Absolute Tama # 0.83 [facility] lth Basophils (Bld) [#/Vol] 0.08 10*3/uL [facility] [employer] Basophils/100 WBC (Bld) 1 % 0 - 2 % M [facility] [employer] Differential Type NOT REPORTED [facility] [place] Eosinophils/100 WBC (Bld) 3 % 1 - 4 % [facility] [place] Hematocrit (Bld) [Volume fraction] 29.7 % Low 40.7 - 50.3 % [facility] [place] Hemoglobin.gastrointesti nal spec 1 Ql (Stl) 9.8 g/dL Low 13.0 - 17.0 g/dL [facility] [employer] Immature granulocytes/100 WBC (Bld) 1 % High 0 [facility] [place] Interpretation and review of laboratory results Abnormal [facility] [place] Lymphocytes/100 WBC (Bld) 15 % Low 24 - 43 % [facility] [place] MCH (RBC) [Entitic mass] 27.8 pg 25. 2 - 33.5 pg [facility] [place] MCHC (RBC) [Mass/Vol] 33.0 g/dL 28.4 - 34.8 g/dL [facility] [place] MCV (RBC) [Entitic vol] 84.4 fL 82.6 - 102.9 fL [facility] [place] Monocytes/100 WBC (Bld) 10 % 3 - 12 % [facility] [employer] Morphology Adis (Bld) [Interp] ANISOCYTOSIS PRESENT [facility] NRBC Automated 0.0 0.0 per 100 WBC [facility] [place] Platelet distribution width (Bld) [Ratio] 15.0 % High 11.8 - 14.4 % [facility] [place] Platelet Estimate NOT REPORTED [facility] [employer] Platelet mean volume (Bld) [Entitic vol] 10.5 fL 8.1 - 13.5 fL [facility] [place] Platelets (Bld) [#/Vol] 140 10*3/uL [facility] [employer] RBC (Bld) [#/Vol] 3.52 10*6/uL Low 4.21 - 5.7 7 m/uL [facility] [place] RBC (Bld) [#/Vol] NOT REPORTED [facility] [place] Segmented neutrophils/100 WBC (Bld) 70 % High 36 - 65 % [facility] [employer] Segs [facility] ([facility] [#/Vol] 8.3 10*3/uL [facility] [place] WBC (Bld) [#/Vol] NOT REPORTED [facility] CREATININE, RANDOM URINEon 0 - Creatinine, Ur 64.4 mg/dL 39.0 - 259.0 mg/dL [facility] [place] Catheterization and angiogra phy procedure details panelOrdered By: Unknown Result on 12-15-2021 [facility] [place] Comprehensive Metabolic Pane l w/ Reflex to MGon 12-15-2021 Albumin [Mass/Vol] 1.9 g/dL Low 3.5 - 5.2 g/dL [facility] [place] Albumin/Globulin [Mass ratio] 0.5 {ratio} Low [facility] [place] ALP (Bld) [Catalytic activity/Vol] 117 U/L 40 - 129 U/L [facility] [place] ALT [Catalytic activity/Vol] 64 U/L High 5 - 41 U/L [facility] [place] Anion gap [Moles/Vol] 7 mmol/L Low 9 - 17 mmol/L [facility] [place] AST [Catalytic activity/Vol] 55 U/L High <40 [facility] [employer] Bilirubin [Mass/Vol] 0.38 mg/dL 0.3 - 1 .2 mg/dL [facility] [employer] Calcium [Mass/Vol] 7.0 mg/dL Low 8.6 - 10. 4 mg/dL [facility] [employer] Chloride [Moles/Vol] 100 mmol/L 98 - 10 7 mmol/L [facility] [place] CO2 [Moles/Vol] 22 mmol/L 20 - 31 mmol/L [facility] [place] Creatinine [Mass/Vol] 0.55 mg/dL Low 0.70 - 1.20 mg/dL [facility] [place] Free PSA/Total PSA [Mass fraction] 5.7 g/dL Low 6.4 - 8.3 g/dL [facility] [place] GFR >60 >60 mL/min [facility] GFR Non- >60 >60 mL/min [facility] [place] GFR/1.73 sq M.predicted MDRD (S/P/Bld) [Vol rate/Area] [facility] [place] Comment on above: Average GFR for 30-3 9 years old: 107 mL/min/1.73sq m Chronic Kidney Disease: <60 mL/min/1.73sq m Kidney failure: <15 mL/min/1.73sq m eGFR calculated using average adult body mass. Additional eGFR calculator available at: http://www.[employer]/multiple_crcl_2012.htm GFR/1.73 sq M.predicted MDRD (S/P/Bld) [Vol rate/Area] NOT REPORTED [facility] [place] Glucose [Mass/Vol] 111 mg/dL High 70 - 99 mg/dL [facility] [place] Potassium [Moles/Vol] 4.2 mmol/L 3.7 - 5.3 mmol/L [facility] [place] Sodium [Moles/Vol] 129 mmol/L Low 135 - 144 mmol/L [facility] [place] Urea nitrogen (BldV) [Mass/Vol] 9 mg/dL 6 - 20 mg/dL [facility] [place] Urea nitrogen/Creatinine (Bld) [Mass ratio] NOT REPORTED [facility] [place] Culture, Blood 1on 2 Bacteria identified Cx Nom (Unsp spec) Positive Abnormal [facility] [place] Bacteria identified Cx Nom (Unsp spec) DIRECT GRAM STAIN FROM BOTTLE: GRAM POSITIVE COCCI IN CLUSTERS [facility] [place] Bacteria identified Cx Nom (Unsp spec) Staphylococcus aureus Detected: mecA/C and MREJ Gene Detected- Methicillin Resistant Organism Methodology- Polymerase Chain Reaction (PCR) Abnormal [facility] [place] Bacteria identified Cx Nom (Unsp spec) METHICILLIN RESISTANT STAPHYLOCOCCUS AUREUS Abnormal [facility] [place] Bacteria identified Cx Nom (Unsp spec) (NOTE) Direct Gram Stain from bottle and Polymerase Chain Reaction (PCR) results called to and read back by:DIANE Martinez AT 1440 ON 12/14/2021 [facility] [place] Interpretation and review of laboratory results Abnormal [facility] [place] Special Requests RT AC 10 ML [facility] Specimen Description .BLOOD [facility] No Panel Informationon 12-15 [facility] [place] Interpretation and review of laboratory results Abnormal [facility] Osmolality, Urineon 12-15-19 22 Osmolality, Ur [facility] SODIUM, URINE, RANDOMon Sodium (U) [Moles/Vol] 140 mmol/L [facility] Comment on above: No normal range esta blished. Vancomycin, Randomon 022 Vancomycin Random Date last dose NOT REPORTED [facility] [place] Vancomycin Random Dose amount NOT REPORTED [facility] [place] Vancomycin Random Time last dose NOT REPORTED [facility] [place] Vancomycin Rm 14 ug/mL [facility] Comment on above: Higher trough serum vancomycin concentrations of 15-20 ug/mL are recommended for complicated infections such as bacteremia, endocarditis, osteomyelitis, meningitis, and hospital acquired pneumonia. [facility] [place] Basic Metabolic Panel w/ Ref rebecca to MGon 12-14-2021 Anion gap [Moles/Vol] 6 mmol/L Low 9 - 17 mmol/L [facility] [place] Calcium [Mass/Vol] 7.6 mg/dL Low 8.6 - 10. 4 mg/dL [facility] [employer] Chloride [Moles/Vol] 106 mmol/L 98 - 10 7 mmol/L [facility] [employer] CO2 [Moles/Vol] 23 mmol/L 20 - 31 mmol/L [facility] [place] Creatinine [Mass/Vol] 0.55 mg/dL Low 0.70 - 1.20 mg/dL [facility] [employer] GFR >60 >60 mL/min [facility] GFR Non- >60 >60 mL/min [facility] [place] GFR/1.73 sq M.predicted MDRD (S/P/Bld) [Vol rate/Area] [facility] [place] Comment on above: Average GFR for 30-3 9 years old: 107 mL/min/1.73sq m Chronic Kidney Disease: <60 mL/min/1.73sq m Kidney failure: <15 mL/min/1.73sq m eGFR calculated using average adult body mass. Additional eGFR calculator available at: http://www.[employer]/multiple_crcl_2012.htm GFR/1.73 sq M.predicted MDRD (S/P/Bld) [Vol rate/Area] NOT REPORTED [facility] [place] Glucose [Mass/Vol] 111 mg/dL High 70 - 99 mg/dL [facility] [place] Interpretation and review of laboratory results Abnormal [facility] [place] Potassium [Moles/Vol] 3.6 mmol/L Low 3.7 - 5.3 mmol/L [facility] [place] Sodium [Moles/Vol] 135 mmol/L 135 - 144 mmol/L [facility] [place] Urea nitrogen (BldV) [Mass/Vol] 13 mg/dL 6 - 20 mg/dL [facility] [place] Urea nitrogen/Creatinine (Bld) [Mass ratio] NOT REPORTED [facility] CBC auto differentialon 02-0 Absolute Eos # 0.20 [facility] th Absolute Immature Granulocyte 0.05 [facility] [place] Absolute Lymph # 1.04 Low [facility] He alth Absolute Tama # 0.87 [facility] Basophils (Bld) [#/Vol] 0.03 10*3/uL [facility] [place] Basophils/100 WBC (Bld) 0 % 0 - 2 % M [facility] Differential Type NOT REPORTED [facility] [place] Eosinophils/100 WBC (Bld) 2 % 1 - 4 % [facility] [place] Hematocrit (Bld) [Volume fraction] 30.8 % Low 40.7 - 50.3 % [facility] [place] Hemoglobin.gastrointesti nal spec 1 Ql (Stl) 10.3 g/dL Low 13.0 - 17.0 g/dL [facility] [place] Immature granulocytes/100 WBC (Bld) 1 % High 0 [facility] [place] Interpretation and review of laboratory results Abnormal [facility] [place] Lymphocytes/100 WBC (Bld) 11 % Low 24 - 43 % [facility] [place] MCH (RBC) [Entitic mass] 27.9 pg 25. 2 - 33.5 pg [facility] [place] MCHC (RBC) [Mass/Vol] 33.4 g/dL 28.4 - 34.8 g/dL [facility] [place] MCV (RBC) [Entitic vol] 83.5 fL 82.6 - 102.9 fL [facility] [place] Monocytes/100 WBC (Bld) 9 % 3 - 12 % [facility] NRBC Automated 0.0 0.0 per 100 WBC [facility] [place] Platelet distribution width (Bld) [Ratio] 14.7 % High 11.8 - 14.4 % [facility] [place] Platelet Estimate NOT REPORTED [facility] [place] Platelet mean volume (Bld) [Entitic vol] 10.8 fL 8.1 - 13.5 fL [facility] [place] Platelets (Bld) [#/Vol] 150 10*3/uL [facility] [place] RBC (Bld) [#/Vol] 3.69 10*6/uL Low 4.21 - 5.7 7 m/uL [facility] [place] RBC (Bld) [#/Vol] ANISOCYTOSIS PRESENT [facility] [place] Segmented neutrophils/100 WBC (Bld) 77 % High 36 - 65 % [facility] [place] Segs [facility] ([facility]ld[facility] [#/Vol] 9.2 10*3/uL [facility] [place] WBC (Bld) [#/Vol] NOT REPORTED [facility] CULTURE BLOODon 12-14-2021 Microscopic examination of [...] F Oxacillin >=4 R F Normal [facility] Comment on above: Performed By: #### C [facility] #### [facility] [address] [place] [address] Dr. Amanda Cottrell Protime-INRon 12-14-2021 INR Coag (Bld) [Relative time] 1.2 {INR} [employer] Comment on above: Therapeutic Range: Moderate Anticoagulant Intensity: INR = 2.0-3.0 High Anticoagulant Intensity: INR = 2.5-3.5 Interpretation and review of laboratory results Abnormal [email or web address] PT Coag (PPP) [Time] 13 s High [employer] Basic Metabolic Panel w/ Ref rebecca to MGon 12-13-2021 Anion gap [Moles/Vol] 9 mmol/L 9 - 17 mmol/L [email or web address] Calcium [Mass/Vol] 7.4 mg/dL Low 8.6 - 10. 4 mg/dL [email or web address] Chloride [Moles/Vol] 104 mmol/L 98 - 10 7 mmol/L [email or web address] CO2 [Moles/Vol] 22 mmol/L 20 - 31 mmol/L [email or web address] Creatinine [Mass/Vol] 0.56 mg/dL Low 0.70 - 1.20 mg/dL [email or web address] GFR >60 >60 mL/min [employer] GFR Non- >60 >60 mL/min [email or web address] GFR/1.73 sq M.predicted MDRD (S/P/Bld) [Vol rate/Area] [email or web address] Comment on above: Average GFR for 30-3 9 years old: 107 mL/min/1.73sq m Chronic Kidney Disease: <60 mL/min/1.73sq m Kidney failure: <15 mL/min/1.73sq m eGFR calculated using average adult body mass. Additional eGFR calculator available at: http://www.[employer]/multiple_crcl_2012.htm GFR/1.73 sq M.predicted MDRD (S/P/Bld) [Vol rate/Area] NOT REPORTED [facility] [place] Glucose [Mass/Vol] 121 mg/dL High 70 - 99 mg/dL [facility] [place] Interpretation and review of laboratory results Abnormal [facility] Potassium [Moles/Vol] 3.4 mmol/L Low 3.7 - 5.3 mmol/L [facility] Sodium [Moles/Vol] 135 mmol/L 135 - 144 mmol/L [facility] [place] Urea nitrogen (BldV) [Mass/Vol] 9 mg/dL 6 - 20 mg/dL [facility] [place] Urea nitrogen/Creatinine (Bld) [Mass ratio] NOT REPORTED [facility] C-Reactive Proteinon 022 CRP [Mass/Vol] 110.3 mg/L High 0.0 - 5.0 mg/L [facility] Interpretation and review of laboratory results Abnormal [facility] CBC AUTO DIFFon 12-13-2021 BASO # 0.0 103/ul Normal 0.0-0.1 [facility] Comment on above: Performed By: #### V ANCT #### [facility] [address] [place] [address] Dr. Amanda Cottrell Basophils/100 WBC (Bld) 0.2 % Normal 0.2-2.0 [facility] Comment on above: Performed By: #### V ANCT #### [facility] [address] [place] [address] Dr. Amanda Cottrell EO # 0.1 103/ul Normal 0.0-0.7 [facility] Comment on above: Performed By: #### V ANCT #### [facility] [address] [place] [address] Dr. Amanda Cottrell Eosinophils/100 WBC (Bld) 1.0 % Normal 0.9-7.0 [facility] Comment on above: Performed By: #### V ANCT #### [facility] [address] [place] [address] Dr. Amanda Cottrell Erythrocyte distribution width (RBC) [Ratio] 14.6 % Normal 11.0-15.0 [facility] Comment on above: Performed By: #### V ANCT #### [facility] [address] [place] [address] Dr. Amanda Cottrell Hematocrit (Bld) [Volume fraction] 31.3 % Critically low 42.0-54.0 [facility] Comment on above: Performed By: #### V ANCT #### [facility] [address] [place] [address] Dr. Amanda Cottrell Hemoglobin (Bld) [Mass/Vol] 10.4 g/dL Critically low 14.0-18.0 [facility] Comment on above: Performed By: #### V ANCT #### [facility] [address] [place] [address] Dr. Amanda Cottrell IG # 0.07 10e3/ul Critically high 0.00-0.03 [facility] Comment on above: Performed By: #### V ANCT #### [facility] [address] [place] [address] Dr. Amanda Cottrell IG % 0.8 % Critically high 0.0-0.5 [facility] Comment on above: Performed By: #### V ANCT #### [facility] [address] [place] [address] Dr. Amanda Cottrell LYMPH # 0.5 103/ul Critically low 1.2-3.8 [facility] Comment on above: Performed By: #### V ANCT #### [facility] [address] [place] [address] Dr. Amanda Cottrell Lymphocytes/100 WBC (Bld) 5.0 % Critically low 20.5-60.0 [facility] Comment on above: Performed By: #### V ANCT #### [facility] [address] [place] [address] Dr. Amanda Cottrell MANUAL DIFF REQ NO Normal [facility] Comment on above: Performed By: #### V ANCT #### [facility] [address] [address] [address] Amanda Cottrell MCH (RBC) [Entitic mass] 27.5 pg Normal 25.9-34.0 [facility] Comment on above: Performed By: #### V ANCT #### [facility] [address] [place] [address] Dr. Amanda Cottrell MCHC (RBC) [Mass/Vol] 33.2 g/dL Normal 29.9-35.2 [facility] Comment on above: Performed By: #### V ANCT #### [facility] [address] [place] [address] Dr. Amanda Cottrell MCV (RBC) [Entitic vol] 82.8 fL Normal 80.0-94.0 [facility] Comment on above: Performed By: #### V ANCT #### [facility] [address] [place] [address] Dr. Amanda Cottrell MONO # 0.7 103/ul Normal 0.3-0.8 [facility] Comment on above: Performed By: #### V ANCT #### [facility] [address] [place] [address] Dr. Amanda Cottrell Monocytes/100 WBC (Bld) 7.9 % Normal 1.7-12.0 [facility] Comment on above: Performed By: #### V ANCT #### [facility] [address] [place] [address] Dr. Amanda Cottrell NEUT # 7.9 103/ul Critically high 1.4-6.5 [facility] Comment on above: Performed By: #### V ANCT #### [facility] [address] [place] [address] Dr. Amanda Cottrell Neutrophils/100 WBC (Bld) 85.1 % Critically high 43.0-75.0 [facility] Comment on above: Performed By: #### V ANCT #### [facility] [address] [place] [address] Dr. Amanda Cottrell Platelet mean volume (Bld) [Entitic vol] 11.1 fL Normal 9.5-13.5 [facility] Comment on above: Performed By: #### V ANCT #### [facility] [facility] [address], [place] [address] Dr. Amanda Cottrell PLT 98 103/ul Critically low 150-450 [facility] Comment on above: Performed By: #### V ANCT #### [facility] [address], [place] [address] Dr. Amanda Cottrell RBC 3.78 106/ul Critically low 4.70-6.10 [facility] Comment on above: Performed By: #### V ANCT #### [facility] [address], [place] [address] Dr. Amanda Cottrell WBC 9.2 103/ul Normal 4.0-11.0 [facility] Comment on above: Performed By: #### V ANCT #### [facility] [address], [place] [address] Dr. Amanda Cottrell CBC Auto Differentialon 02-0 Absolute Eos # 0.14 [facility] Absolute Immature Granulocyte 0.03 [facility] Absolute Lymph # 0.86 Low [facility] alth Absolute Tama # 0.92 [facility] Basophils (Bld) [#/Vol] 10*3/uL [employer] [facility] Basophils/100 WBC (Bld) 0 % 0 - 2 % [facility] Differential Type NOT REPORTED [facility] Eosinophils/100 WBC (Bld) 2 % 1 - 4 % [facility] Hematocrit (Bld) [Volume fraction] 28.9 % Low 40.7 - 50.3 % [facility] Hemoglobin.gastrointesti nal spec 1 Ql (Stl) 10.1 g/dL Low 13.0 - 17.0 g/dL [facility] Immature granulocytes/100 WBC (Bld) 0 % 0 [facility] Interpretation and review of laboratory results Abnormal [facility] Lymphocytes/100 WBC (Bld) 10 % Low 24 - 43 % [facility] MCH (RBC) [Entitic mass] 28.3 pg 25. 2 - 33.5 pg [facility] MCHC (RBC) [Mass/Vol] 34.9 g/dL High 28.4 - 34.8 g/dL [facility] MCV (RBC) [Entitic vol] 81.0 fL Low 82.6 - 102.9 fL [facility] Monocytes/100 WBC (Bld) 10 % 3 - 12 % M [facility] NRBC Automated 0.0 0.0 per 100 WBC [facility] Platelet distribution width (Bld) [Ratio] 14.5 % High 11.8 - 14.4 % [facility] Platelet Estimate NOT REPORTED [facility] Platelet mean volume (Bld) [Entitic vol] NOT REPORTED 8.1 - 13.5 fL [facility] Platelets (Bld) [#/Vol] See Reflexed IPF Result [facility] RBC (Bld) [#/Vol] 3.57 10*6/uL Low 4.21 - 5.7 7 m/uL [facility] RBC (Bld) [#/Vol] ANISOCYTOSIS PRESENT [facility] Comment on above: MICROCYTOSIS PRESENT Segmented neutrophils/100 WBC (Bld) 78 % High 36 - 65 % [facility] Segs Absolute 7.08 [facility] h WBC (Bld) [#/Vol] 9.1 10*3/uL [facility] WBC (Bld) [#/Vol] NOT REPORTED [facility] D-Dimer, Quantitativeon 02-0 D-Dimer, Quant 2.63 mg/L FEU [facility] th Comment on above: When combined with a low clinical probability, a D dimer value of <0.50 mg/L FEU is considered negative for DVT and PE (negative predictive value of 98%, sensitivity of 97%). If this test is not being used to help rule out DVT and PE, then the following reference range should be utilized: 0.00 - 1.02 mg/L FEU. The [employer] D-Dimer assay is intended for use as [...] more prevalent in patients with distal DVT. [facility] Immature Platelet Fractionon 12-13-2021 Interpretation and review of laboratory results Abnormal [facility] Platelet, Fluorescence 112 Low Me [facility] Platelet, Immature Fraction 3.4 % 1.1 - 10.3 % [facility] Magnesiumon 12-13-2021 Magnesium [Mass/Vol] 1.9 mg/dL 1.6 - 2 .6 mg/dL [facility] No Panel Informationon 12-13 Left wrist: No fracture. Left ankle: No fracture. Moderate soft tissue swelling at the site of insertion of Achillis tendon to calcaneus. [facility] EXAMINATION: XRAY VIEWS OF THE LEFT [...] of insertion of Achillis tendon to calcaneus. [facility] Akanksha Santoro MD - 12/13/2021 EXAMINATION: [...] of insertion of Achillis tendon to calcaneus. [email or web address] Work Phone: Radiology Study observation (narrative) Lily [place] Work Phone: No Panel InformationOrdered By: Akanksha Santoro on 12-13-2021 [email or web address] Work Phone: PROF CHEM 8 (BAS METB)on Anion gap [Moles/Vol] 9.4 mmol/L Normal [facility] Comment on above: Performed By: #### B MP #### [facility] [address] [place] [address] Dr. Amanda Cottrell Calcium [Mass/Vol] 7.4 mg/dL Critically low 8.4-10.2 [facility] Comment on above: Performed By: #### B MP #### [facility] [address] [address] [address] Amanda Cottrell Chloride [Moles/Vol] 102 mmol/L Normal 98-107 [facility] Comment on above: Performed By: #### B MP #### [facility] [address] [address] [address] Amanda Cottrell CO2 [Moles/Vol] 24.8 mmol/L Normal 22.0-30.0 [facility] Comment on above: Performed By: #### B MP #### [facility] [address] [address] [address] Amanda Cottrell Creatinine [Mass/Vol] 0.65 mg/dL Critically low 0.66-1.25 [facility] Comment on above: Performed By: #### B MP #### [facility] [address] [place] [address] Dr. Amanda Cottrell EGFR-AF CYMRAES >60 Normal >=60 [facility] Comment on above: Performed By: #### B MP #### [facility] [address] [place] [address] Dr. Amanda Cottrell EGFR-NON AF CYMRAES >60 Normal >=60 [facility] Comment on above: Performed By: #### B MP #### [facility] [address] [address] [address] Amanda Cottrell Glucose [Mass/Vol] 115 mg/dL Critically high 74-106 T [facility] Comment on above: Performed By: #### B MP #### [facility] [address] [address] [address] Amanda Cottrell Potassium [Moles/Vol] 3.2 mmol/L Critically low 3.4-5.0 [facility] Comment on above: Performed By: #### B MP #### [facility] [address] [address] [address] Amanda Cottrell Sodium [Moles/Vol] 133 mmol/L Critically low 137-145 [facility] Comment on above: Performed By: #### B MP #### [facility] [address] [address] [address] Amanda Cottrell Urea nitrogen [Mass/Vol] 9.0 mg/dL Normal 9.0-20.0 [facility] Comment on above: Performed By: #### B MP #### [facility] [address] [address] [address] Amanda Cottrell Urea nitrogen/Creatinine [Mass ratio] 13.8 mg/mg Normal [facility] Comment on above: Performed By: #### B MP #### [facility] [address] [address] [address] Amanda Cottrell SPECIMEN REJECTIONon 022 - NOT REPORTED [facility] Ordered Test [facility] Reason for Rejection Unable to perform testing: Specimen clotted. [facility] Specimen source Nom (Unsp spec) .BLOOD [facility] Troponinon 12-13-2021 Troponin Interp NOT REPORTED [facility] ealt Troponin T NOT REPORTED <0.03 ng/mL [facility] Troponin, High Sensitivity <6 0 - 22 ng/L [facility] Comment on above: High Sensitivity Troponin values cannot be compared with other Troponin methodologies. Patients with high levels of Biotin oral intake (i.e >5mg/day) may have falsely decreased Troponin levels. Samples collected within 8 hours of biotin intake may require additional information for diagnosis. [facility] VANCOMYCIN TROUGHon 12-13-19 22 VANCOMYCIN TROUGH 9.8 ug/ml Normal 5.0-20.0 [facility] Comment on above: Performed By: #### V ANCT #### [facility] [address] [place] [address] Dr. Amanda Cottrell CBC W MANUAL DIFFon 12-12-19 22 ANISOCYTOSIS 1+ Normal [facility] Comment on above: Performed By: #### C BCMAN #### [facility] [address] [place] [address] Dr. Amanda Cottrell ATYPICAL LYMPH # Normal [facility] Comment on above: Performed By: #### C BCMAN #### [facility] [address] [place] [address] Dr. Amanda Cottrell ATYPICAL LYMPH % Normal [facility] Comment on above: Performed By: #### C MELCHOR #### [facility] [address] [place] [address] Dr. Amanda Cottrell BAND # 0.7 103/ul Critically high 0.0-0.3 [facility] Comment on above: Performed By: #### C BCMACY #### [facility] [address] [place] [address] Dr. Amanda Cottrell BAND % 8 % Critically high 0-5 [facility] Comment on above: Performed By: #### C BCMAN #### [facility] [address] [place] [address] Dr. Amanda Cottrell BASOM # 0.00 103/ul Normal 0.00-0.10 [facility] Comment on above: Performed By: #### C BCMAN #### [facility] [address] [place] [address] Dr. Amanda Cottrell BASOM % 0.0 % Critically low 0.2-2.0 [facility] Comment on above: Performed By: #### C BCMAN #### [facility] [address] [place] [address] Dr. Amanda Cottrell BLAST # Normal [facility] Comment on above: Performed By: #### C BCMAN #### [facility] [address] [place] [address] Dr. Amanda Cottrell BLAST % Normal [facility] Comment on above: Performed By: #### C MELCHOR #### [facility] [address] [place] [address] Dr. Amanda Cottrell CORRECTED WBC Normal 4.0-11.0 [facility] Comment on above: Performed By: #### C MELCHOR #### [facility] [address] [place] [address] Dr. Amanda Cottrell EOS # 0.00 103/ul Normal 0.00-0.70 [facility] Comment on above: Performed By: #### C MELCHOR #### [facility] [address] [place] [address] Dr. Amanda Cottrell EOS% 0.0 % Critically low 0.9-7.0 [facility] Comment on above: Performed By: #### C MELCHOR #### [facility] [address] [place] [address] Dr. Amanda Cottrell HCT 28.7 % Critically low 42.0-54.0 [facility] Comment on above: Performed By: #### C MELCHOR #### [facility] [address] [place] [address] Dr. Amanda Cottrell HGB 9.5 g/dl Critically low 14.0-18.0 [facility] Comment on above: Performed By: #### C MELCHOR #### [facility] [address] [place] [address] Dr. Amanda Cottrell LYMPHM # 0.49 103/ul Critically low 1.20-3.80 [facility] Comment on above: Performed By: #### C MELCHOR #### [facility] [address] [place] [address] Dr. Amanda Cottrell LYMPHM% 6.0 % Critically low 20.5-60.0 [facility] Comment on above: Performed By: #### C MELCHOR #### [facility] [address] [place] [address] Dr. Amanda Cottrell MCH 27.4 pg Normal 25.9-34.0 [facility] Comment on above: Performed By: #### C BCMACY #### [facility] [address] [place] [address] Dr. Amanda Cottrell MCHC 33.1 g/dl Normal 29.9-35.2 [facility] Comment on above: Performed By: #### C BCMAN #### [facility] [address] [place] [address] Dr. Amanda Cottrell MCV 82.7 fL Normal 80.0-94.0 [facility] Comment on above: Performed By: #### C BCMACY #### [facility] [address] [place] [address] Dr. Amanda Cottrell METAMYELOCYTE # Normal [facility] Comment on above: Performed By: #### C MELCHOR #### [facility] [address] [place] [address] Dr. Amanda Cottrell METAMYELOCYTE % Normal [facility] Comment on above: Performed By: #### C MELCHOR #### [facility] [address] [place] [address] Dr. Amanda Cottrell MONOM# 0.74 103/ul Normal 0.30-0.80 [facility] Comment on above: Performed By: #### C BCMACY #### [facility] [address] [place] [address] Dr. Amanda Cottrell MONOM% 9.0 % Normal 1.7-12.0 [facility] Comment on above: Performed By: #### C MELCHOR #### [facility] [address] [place] [address] Dr. Amanda Cottrell MPV 10.5 fL Normal 9.5-13.5 [facility] Comment on above: Performed By: #### C BCMAN #### [facility] [address] [place] [address] Dr. Amanda Cottrell MYELOCYTE # Normal [facility] Comment on above: Performed By: #### C MELCHOR #### [facility] [address] [place] [address] Dr. Amanda Cottrell MYELOCYTE % Normal [facility] Comment on above: Performed By: #### C MELCHOR #### [facility] [address] [address] [address] Amanda Cottrell NRBC Normal [facility] Comment on above: Performed By: #### Junior ROCHE #### [facility] [address] [id number] [address] Amanda Cottrell PLT 95 103/ul Critically low 150-450 [facility] Comment on above: Performed By: #### C MELCHOR #### [facility] [address] [address] [address] Amanda Cottrell RBC 3.47 106/ul Critically low 4.70-6.10 [facility] Comment on above: Performed By: #### C MELCHOR #### [facility] [address] [place] [address] Dr. Amanda Cottrell RDW 14.3 % Normal 11.0-15.0 [facility] Comment on above: Performed By: #### C MELCHOR #### [facility] [address] [address] [address] Amanda Cottrell SEG # 6.31 103/ul Normal 1.40-6.50 [facility] Comment on above: Performed By: #### C MELCHOR #### [facility] [address] [place] [address] Dr. Amanda Cottrell SEG % 77.0 % Critically high 43.0-75.0 [facility] Comment on above: Performed By: #### C MELCHOR #### [facility] [address] [place] [address] Dr. Amanda Cottrell WBC 8.2 103/ul Normal 4.0-11.0 [facility] Comment on above: Performed By: #### Junior ROCHE #### [facility] [address] [place], [place] [id number] Dr. Amanda Cottrell ECHO LIMITED STUDYon 022 ECHO LIMITED STUDY Patient: TIP ANSARI Exam Date: 12/12/2021 : 1980 Gender:M Ordering : DR EMY REBOLLEDO . Admission #: [id number] Family : Order #: [id number] CLICK HERE TO VIEW EXAM ECHOCARDIOGRAM REPORT [...] Moyer M.D. on 12/12/2021 at 16:15 Normal [facility] PROF 14(COMP METB)on 022 Albumin [Mass/Vol] 1.6 g/dL Critically low 3.5-5.0 [facility] Comment on above: Performed By: #### V ANCT #### [facility] [address] [place] [address] Dr. Amanda Cottrell Albumin/Globulin [Mass ratio] 0.4 {ratio} Normal [facility] Comment on above: Performed By: #### V ANCT #### [facility] [address] [address] [address] Amanda Cottrell ALP [Catalytic activity/Vol] 71 U/L Normal 38-126 [facility] Comment on above: Performed By: #### V ANCT #### [facility] [address] [address] [address] Amanda Cottrell ALT [Catalytic activity/Vol] 30 U/L Normal 21-72 [facility] Comment on above: Performed By: #### V ANCT #### [facility] [address] [address] [address] Amanda Cottrell Anion gap [Moles/Vol] 10.0 mmol/L Normal [facility] Comment on above: Performed By: #### V ANCT #### [facility] [address] [address] [address] Amanda Cottrell AST [Catalytic activity/Vol] 21 U/L Normal 17-59 [facility] Comment on above: Performed By: #### V ANCT #### [facility] [address] [address] [address] Amanda Cottrell Bilirubin [Mass/Vol] 0.7 mg/dL Normal 0.2-1.3 [facility] Comment on above: Performed By: #### V ANCT #### [facility] [address] [address] [address] Amanda Cottrell Calcium [Mass/Vol] 7.8 mg/dL Critically low 8.4-10.2 [facility] Comment on above: Performed By: #### V ANCT #### [facility] [address] [address] [address] Amanda Cottrell Chloride [Moles/Vol] 100 mmol/L Normal 98-107 [facility] Comment on above: Performed By: #### V ANCT #### [facility] [address] [address] [address] Amanda Cottrell CO2 [Moles/Vol] 23.1 mmol/L Normal 22.0-30.0 [facility] Comment on above: Performed By: #### V ANCT #### [facility] [address] [address] [address] Amanda Cottrell Creatinine [Mass/Vol] 0.67 mg/dL Normal 0.66-1.25 [facility] Comment on above: Performed By: #### V ANCT #### [facility] [address] [address] [address] Amanda Cottrell EGFR-AF CYMRAES >60 Normal >=60 [facility] Comment on above: Performed By: #### V ANCT #### [facility] [address] [address] [address] Amanda Cottrell EGFR-NON AF CYMRAES >60 Normal >=60 [facility] Comment on above: Performed By: #### V ANCT #### [facility] [address] [address] [address] Amanda Cottrell Globulin (S) [Mass/Vol] 3.8 g/dL Normal [facility] Comment on above: Performed By: #### V ANCT #### [facility] [address] [address] [address] Amanda Cottrell Glucose [Mass/Vol] 113 mg/dL Critically high 74-106 [facility] Comment on above: Performed By: #### V ANCT #### [facility] [address] [place] [address] Dr. Amanda Cottrell Potassium [Moles/Vol] 3.1 mmol/L Critically low 3.4-5.0 [facility] Comment on above: Performed By: #### V ANCT #### [facility] [address] [place] [address] Dr. Amanda Cottrell Protein [Mass/Vol] 5.4 g/dL Critically low 6.1-8.2 [facility] Comment on above: Performed By: #### V ANCT #### [facility] [address] [place] [address] Dr. Amanda Cottrell Sodium [Moles/Vol] 130 mmol/L Critically low 137-145 [facility] Comment on above: Performed By: #### V ANCT #### [facility] [address] [place] [address] Dr. Amanda Cottrell Urea nitrogen [Mass/Vol] 12.0 mg/dL Normal 9.0-20.0 [facility] Comment on above: Performed By: #### V ANCT #### [facility] [address] [place] [address] Dr. Amanda Cottrell Urea nitrogen/Creatinine [Mass ratio] 17.9 mg/mg Normal [facility] Comment on above: Performed By: #### V ANCT #### [facility] [address] [place] [address] Dr. Amanda Cottrell XR CHEST 1 Von [...] by: JOELLE MEDEIROS Date: 2021-12-12 12:09 Normal [facility] BLOOD CULTURE ID PANELon Bottle Set: Set 1 Normal [facility] Comment on above: Performed By: #### V ANCT #### [facility] [address] [place] [address] Dr. Amanda Cottrell BLOOD CULTURE ID PANEL SUBSE Kory 12-11-2021 A. baumannii Not detected Normal [facility] Comment on above: Performed By: #### B CIDSUB #### [facility] [address] [place] [address] Dr. Amanda Cottrell Performed By: #### V ANCT #### [facility] [address] [place] [address] Dr. Amanda Cottrell BCID CONTROLS PASSED Normal [facility] [place] Comment on above: Performed By: #### B CIDSUB #### [facility] [address] [place] [address] Dr. Amanda Cottrell Performed By: #### V ANCT #### [facility] [address] [place] [address] Dr. Amanda Cottrell BCIDBTHD BLOOD CULTURE BOTTLE INFORMATION Normal [facility] Comment on above: Performed By: #### B CIDSUB #### [facility] [address] [place] [address] Dr. Amanda Cottrell Performed By: #### V ANCT #### [facility] [address] [place] [address] Dr. Amanda Cottrell BCIDHD1 ANTIMICROBIAL RESISTANCE GENES [facility] Comment on above: Performed By: #### B CIDSUB #### [facility] [address] [place] [address] Dr. Amanda Cottrell Performed By: #### V ANCT #### [facility] [address] [place] [address] Dr. Amanda Cottrell BCIDHD2 SEE BELOW [facility] Comment on above: Result Comment: KPC- carbapenem resistance gene, mecA- methecillin resistance gene, van A/B- vancomycin resistance gene Note: Antimicrobial resitance can occur via multiple mechanisms. A Not Detected result for the [employer] antomicrobial resistance gene assays does not indicate antimicrobial susceptibility. Subculturing is required for specis identificationand susceptibility testing of isolates. Performed By: #### B CIDSUB #### [facility] [address] [place] [address] Dr. Amanda Cottrell Performed By: #### V ANCT #### [facility] [address] [place] [address] Dr. Amnada Cottrell BCIDHD3 Positive [facility] Comment on above: Performed By: #### B CIDSUB #### [facility] [address] [place] [address] Dr. Amanda Cottrell Performed By: #### V ANCT #### [facility] [address] [place] [address] Dr. Amanda Cottrell BCIDHD4 Negative [facility] Comment on above: Performed By: #### B CIDSUB #### [facility] [address] [place] [address] Dr. Amanda Cottrell Performed By: #### V ANCT #### [facility] [address] [place] [address] Dr. Amanda Cottrell BCIDHD5 YEAST [facility] Comment on above: Performed By: #### B CIDSUB #### [facility] [address] [place] [address] Dr. Amanda Cottrell Performed By: #### V ANCT #### [facility] [address] [place] [address] Dr. Amanda Cottrell BCIDHD6 SEE BELOW Normal [facility] Comment on above: Result Comment: Note : All genus and species [employer] results will be verified post subculturing via Maldi-Tof MS testing methodology. Performed By: #### B CIDSUB #### [facility] [address] [place] [address] Dr. Amanda Cottrell Performed By: #### V ANCT #### [facility] [address] [place] [address] Dr. Amanda Cottrell Bottle Set: Set 2 Normal [facility] Comment on above: Performed By: #### B CIDSUB #### [facility] [address] [place] [address] Dr. Amanda Cottrell Bottle: Aerobic Normal [facility] Comment on above: Performed By: #### B CIDSUB #### [facility] [address] [place] [address] Dr. Amanda Cottrell Performed By: #### V ANCT #### [facility] [address] [place] [address] Dr. Amanda Cottrell Bottle: Anaerobic Normal [facility] Comment on above: Performed By: #### B CIDSUB #### [facility] [address] [place] [address] Dr. Amanda Cottrell Nathaniel albicans Not detected Normal [facility] Comment on above: Performed By: #### B CIDSUB #### [facility] [address] [place] [address] Dr. Amanda Cottrell Performed By: #### V ANCT #### [facility] [address] [place] [address] Dr. Amanda Cotterll Nathaniel glabrata Not detected Normal [facility] Comment on above: Performed By: #### B CIDSUB #### [facility] [address] [place] [address] Dr. Amanda Cottrell Performed By: #### V ANCT #### [facility] [address] [place] [address] Dr. Amanda Cottrell Nathaniel Krusei Not detected Normal [facility] Comment on above: Performed By: #### B CIDSUB #### [facility] [address] [address] [address] Amanda Cottrell Performed By: #### V ANCT #### [facility] [address] [place] [address] Dr. Amanda Cottrell Nathaniel Parapsilosis Not detected Normal [facility] Comment on above: Performed By: #### B CIDSUB #### [facility] [address] [address] [address] Amanda Cottrell Performed By: #### V ANCT #### [facility] [address] [place] [address] Dr. Amanda Cottrell Nathaniel Tropicalis Not detected Normal [facility] Comment on above: Performed By: #### B CIDSUB #### [facility] [address] [place] [address] Dr. Amanda Cottrell Performed By: #### V ANCT #### [facility] [address] [place] [address] Dr. Amanda Cottrell E. Cloacae complex Not detected Normal [facility] Comment on above: Performed By: #### B CIDSUB #### [facility] [address] [place] [address] Dr. Amanda Cottrell Performed By: #### V ANCT #### [facility] [address] [place] [address] Dr. Amanda Cottrell Enterobacteriaceae Not detected Normal [facility] Comment on above: Performed By: #### B CIDSUB #### [facility] [address] [place] [address] Dr. Amanda Cottrell Performed By: #### V ANCT #### [facility] [address] [place] [address] Dr. Amanda Cottrell Enterococcus Not detected Normal [facility] Comment on above: Performed By: #### B CIDSUB #### [facility] [address] [place] [address] Dr. Amanda Cottrell Performed By: #### V ANCT #### [facility] [address] [place] [address] Dr. Amanda Cottrell Escheria coli Not detected Normal [facility] Comment on above: Performed By: #### B CIDSUB #### [facility] [address] [place] [address] Dr. Amanda Cottrell Performed By: #### V ANCT #### [facility] [address] [place] [address] Dr. Amanda Cottrell K. oxytoca Not detected Normal [facility] Comment on above: Performed By: #### B CIDSUB #### [facility] [address] [place] [address] Dr. Amanda Cottrell Performed By: #### V ANCT #### [facility] [address] [place] [address] Dr. Amanda Cottrell K. pneumoniae Not detected Normal [facility] Comment on above: Performed By: #### B CIDSUB #### [facility] [address] [place] [address] Dr. Amanda Cottrell Performed By: #### V ANCT #### [facility] [address] [place] [address] Dr. Amanda Cottrell KPC Resistant Gene Not Applicable Normal [facility] Comment on above: Performed By: #### B CIDSUB #### [facility] [address] [place] [address] Dr. Amanda Cottrell Performed By: #### V ANCT #### [facility] [address] [place] [address] Dr. Amanda Cottrell List. monocytogenes Not detected Normal [facility] Comment on above: Performed By: #### B CIDSUB #### [facility] [address] [place] [address] Dr. Amanda Cottrell Performed By: #### V ANCT #### [facility] [address] [place] [address] Dr. Amanda Cottrell mecA Resistant Gene Detected Critically abnormal [facility] Comment on above: Performed By: #### B CIDSUB #### [facility] [address] [place] [address] Dr. Amanda Cottrell Performed By: #### V ANCT #### [facility] [address] [address] [address] Amanda Cottrell Proteus Not detected Normal [facility] Comment on above: Performed By: #### B CIDSUB #### [facility] [address] [address] [address] Amanda Cottrell Performed By: #### V ANCT #### [facility] [address] [place] [address] Dr. Amanda Cottrell Pseud. aeruginosa Not detected Normal [facility] Comment on above: Performed By: #### B CIDSUB #### [facility] [address] [place] [address] Dr. Amanda Cottrell Performed By: #### V ANCT #### [facility] [address] [place] [address] Dr. Amanda Cottrell Seratia marcescens Not detected Normal [facility] Comment on above: Performed By: #### B CIDSUB #### [facility] [address] [place] [address] Dr. Amanda Cottrell Performed By: #### V ANCT #### [facility] [address] [place] [address] Dr. Amanda Cottrell Site: LEFT HAND Normal [facility] Comment on above: Performed By: #### B CIDSUB #### [facility] [address] [place] [address] Dr. Amanda Cottrell Site: L WRIST Normal [facility] Comment on above: Performed By: #### B CIDSUB #### [facility] [address] [place] [address] Dr. Amanda Cottrell Performed By: #### V ANCT #### [facility] [address] [place] [address] Dr. Amanda Cottrell Site: L HAND Normal [facility] Comment on above: Performed By: #### B CIDSUB #### [facility] [address] [place] [address] Dr. Amanda Cottrell Staph. aureus Detected Critically abnormal [facility] Comment on above: Performed By: #### B CIDSUB #### [facility] [address] [place] [address] Dr. Amanda Cottrell Performed By: #### V ANCT #### [facility] [address] [place] [address] Dr. Amanda Cottrell Staphylococcus Detected Critically abnormal [facility] Comment on above: Performed By: #### B CIDSUB #### [facility] [address] [address] [address] Amanda Cottrell Performed By: #### V ANCT #### [facility] [address] [place] [address] Dr. Amanda Cottrell Strep. agalactiae Not detected Normal [facility] Comment on above: Performed By: #### B CIDSUB #### [facility] [address] [place] [address] Dr. Amanda Cottrell Performed By: #### V ANCT #### [facility] [address] [place] [address] Dr. Amanda Cottrell Strep. pneumoniae Not detected Normal [facility] Comment on above: Performed By: #### B CIDSUB #### [facility] [address] [place] [address] Dr. Amanda Cottrell Performed By: #### V ANCT #### [facility] [address] [place] [address] Dr. Amanda Cottrell Strep. pyogenes Not detected Normal [facility] Comment on above: Performed By: #### B CIDSUB #### [facility] [address] [place] [address] Dr. Amanda Cottrell Performed By: #### V ANCT #### [facility] [address] [place] [address] Dr. Amanda Cottrell Streptococcus Not detected Normal [facility] Comment on above: Performed By: #### B CIDSUB #### [facility] [address] [place] [address] Dr. Amanda Cottrell Performed By: #### V ANCT #### [facility] [address] [place] [address] Dr. Amanda Lux/B Resist. Gene Not Applicable Normal [facility] Comment on above: Performed By: #### B CIDSUB #### [facility] [address] [place] [address] Dr. Amanda Cottrell Performed By: #### V ANCT #### [facility] [address] [place] [address] Dr. Amanda Cottrell CBC AUTO DIFFon 12-11-2021 BASO # 0.0 103/ul Normal 0.0-0.1 [facility] Comment on above: Performed By: #### C BC #### [facility] [address] [place] [address] Dr. Amanda Cottrell Basophils/100 WBC (Bld) 0.2 % Normal 0.2-2.0 [facility] Comment on above: Performed By: #### C BC #### [facility] [address] [place] [address] Dr. Amanda Cottrell EO # 0.0 103/ul Normal 0.0-0.7 [facility] Comment on above: Performed By: #### C BC #### [facility] [address] [place] [address] Dr. Amanda Cottrell Eosinophils/100 WBC (Bld) 0.1 % Critically low 0.9-7.0 [facility] Comment on above: Performed By: #### C BC #### [facility] [address] [place] [address] Dr. Amanda Cottrell Erythrocyte distribution width (RBC) [Ratio] 14.2 % Normal 11.0-15.0 [facility] Comment on above: Performed By: #### C BC #### [facility] [address] [place] [address] Dr. Amanda Cottrell Hematocrit (Bld) [Volume fraction] 34.2 % Critically low 42.0-54.0 [facility] Comment on above: Performed By: #### C BC #### [facility] [address] [place] [address] Dr. Amanda Cottrell Hemoglobin (Bld) [Mass/Vol] 11.9 g/dL Critically low 14.0-18.0 [facility] Comment on above: Performed By: #### C BC #### [facility] [address] [address] [address] Amanda Cottrell IG # 0.15 10e3/ul Critically high 0.00-0.03 [facility] Comment on above: Performed By: #### C BC #### [facility] [address] [address] [address] Amanda Cottrell IG % 1.2 % Critically high 0.0-0.5 [facility] Comment on above: Performed By: #### C BC #### [facility] [address] [address] [address] Amanda Cottrell LYMPH # 0.6 103/ul Critically low 1.2-3.8 [facility] Comment on above: Performed By: #### C BC #### [facility] [address] [place] [address] Dr. Amanda Cottrell Lymphocytes/100 WBC (Bld) 4.5 % Critically low 20.5-60.0 [facility] Comment on above: Performed By: #### C BC #### [facility] [address] [address] [address] Amanda Cottrell MANUAL DIFF REQ NO Normal [facility] Comment on above: Performed By: #### C BC #### [facility] [address] [address] [address] Amanda Cottrell MCH (RBC) [Entitic mass] 28.1 pg Normal 25.9-34.0 [facility] Comment on above: Performed By: #### C BC #### [facility] [address] [address] [address] Amanda Cottrell MCHC (RBC) [Mass/Vol] 34.8 g/dL Normal 29.9-35.2 [facility] Comment on above: Performed By: #### C BC #### [facility] [address] [address] [address] Amanda Cottrell MCV (RBC) [Entitic vol] 80.9 fL Normal 80.0-94.0 [facility] Comment on above: Performed By: #### C BC #### [facility] [address] [address] [address] Amanda Cottrell MONO # 0.9 103/ul Critically high 0.3-0.8 [facility] Comment on above: Performed By: #### C BC #### [facility] [address] [address] [address] Amanda Cottrell Monocytes/100 WBC (Bld) 6.8 % Normal 1.7-12.0 [facility] Comment on above: Performed By: #### C BC #### [facility] [address] [address] [address] Amanda Cottrell NEUT # 11.0 103/ul Critically high 1.4-6.5 [facility] Comment on above: Performed By: #### C BC #### [facility] [address] [address] [address] Amanda Cottrell Neutrophils/100 WBC (Bld) 87.2 % Critically high 43.0-75.0 [facility] Comment on above: Performed By: #### C BC #### [facility] [address] [address] [address] Amanda Cottrell Platelet mean volume (Bld) [Entitic vol] 10.6 fL Normal 9.5-13.5 [facility] Comment on above: Performed By: #### C BC #### [facility] [address] [address] [address] Amanda Cottrell PLT 144 103/ul Critically low 150-450 [facility] Comment on above: Performed By: #### C BC #### [facility] [address] [address] [address] Amanda Cottrell RBC 4.23 106/ul Critically low 4.70-6.10 [facility] Comment on above: Performed By: #### C BC #### [facility] [address] [address] [address] Amanda Cottrell WBC 12.6 103/ul Critically high 4.0-11.0 [facility] Comment on above: Performed By: #### C BC #### [facility] [address] [place], [place] [address] CHEST WO CONon [...] JOSE RAFAEL ALONSO Date: 2021-12-11 18:07 Normal [facility] CULTURE BLOODon 12-11-2021 Microscopic examination of blood, culture Specimen Comments: LEFT HAND Culture Observations: S.aureus in aerobic and anaerobic bottles.See#[id number] for ASTs. Isolate 1 Staphylococcus aureus Growth of Normal [facility] Comment on above: Performed By: #### C BCMAN #### [facility] [address] [place], [place] [address] Dr. Amanda Cottrell CULTURE STOOLon 12-11-2021 CULTURE STOOL Culture Observations : NO GROWTH SALMONELLA, SHIGELLA, YERSINIA, CAMPY, E.COLI 0157, OR STAPH AT 72 HRS Normal [facility] Comment on above: Performed By: #### C BCMAN #### [facility] [address] [place], [place] [address] Dr. Amanda Cottrell Covid-19 PCR (CVDTB)on 11-13 SARS-CoV-2 (COVID-19) RNA CHARO+probe Ql (Unsp spec) Not detected Normal NOT DETECTED [facility] Comment on above: Result Comment: This test is not yet approved or cleared by the [place] FDA. When there are no FDA-approved or cleared tests available, and other criteria are met, FDA can make tests available under an emergency access mechanism called an Emergency Use Authorization (EUA). The EUA for this test is supported by the [place] of Health and Human Service's (HHS's) declaration [...] SARS-CoV-2. Performed By: #### C BCMAN #### [facility] [address] [place] [address] Dr. Amanda Cottrell DRUG SCREEN RAPID (URINE)on 12-11-2021 AMP Positive Abnormal NEGATIVE [facility] Comment on above: Performed By: #### D RUGRPD #### [facility] [address] [place] [address] Dr. Amanda Cottrell BAR Negative Normal NEGATIVE [facility] Comment on above: Performed By: #### D RUGRPD #### [facility] [address] [place] [address] Dr. Amanda Cottrell BUP Negative Normal NEGATIVE [facility] Comment on above: Performed By: #### D RUGRPD #### [facility] [address] [place] [address] Dr. Amanda Cottrell BZO Negative Normal NEGATIVE [facility] Comment on above: Performed By: #### D RUGRPD #### [facility] [address] [place] [address] Dr. Amanda Cottrell CARLINE Negative Normal NEGATIVE [facility] Comment on above: Performed By: #### D RUGRPD #### [facility] [address] [place] [address] Dr. Amanda Cottrell CUT-OFFS SEE BELOW Normal [facility] Comment on above: Result Comment: AMP (Amphetamine): 500ng/mL, BAR (Barbituates): 200 ng/mL, BZO (Benzodiazepines): 150 ng/mL, BUP (Buprenorphine): 10 ng/mL, CARLINE (Cocaine): 150 ng/mL, mAMP (Methamphetamine): 500 ng/mL, MTD (Methadone): 200 ng/mL, OPI (Opiates): 100 ng/mL, OXY (Oxycodone): 100 ng/mL, PCP (Phencyclidine): 25 ng/mL, PPX (Propoxyphene): 300 ng/mL, THC (Cannabinoids): 50 ng/mL, TCA (Trycyclic Antidepressants): 300 ng/mL Performed By: #### D RUGRPD #### [facility] [address] [place] [address] Dr. Amanda Cottrell DRUG CUT HEADER DRUG CLASS TEST SYSTEM CUT-OFF CONCENTRATIONS ARE FOLLOWS: Normal [facility] Comment on above: Performed By: #### D RUGRPD #### [facility] [address] [place] [address] Dr. Amanda Cottrell mAMP Positive Abnormal NEGATIVE [facility] Comment on above: Performed By: #### D RUGRPD #### [facility] [address] [place] [address] Dr. Amanda Cottrell MTD Negative Normal NEGATIVE [facility] Comment on above: Performed By: #### D RUGRPD #### [facility] [address] [place] [address] Dr. Amanda Cottrell OPI Negative Normal NEGATIVE [facility] Comment on above: Performed By: #### D RUGRPD #### [facility] [address] [place] [address] Dr. Amanda Cottrell OXY Negative Normal NEGATIVE [facility] Comment on above: Performed By: #### D RUGRPD #### [facility] [address] [place] [address] Dr. Amanda Cottrell PCP Negative Normal NEGATIVE [facility] Comment on above: Performed By: #### D RUGRPD #### [facility] [address] [address] [address] Amanda Cotterll PPX Negative Normal NEGATIVE [facility] Comment on above: Performed By: #### D RUGRPD #### [facility] [address] [place] [address] Dr. Amanda Cottrell TCA Negative Normal NEGATIVE [facility] Comment on above: Performed By: #### D RUGRPD #### [facility] [address] [place] [address] Dr. Amanda Cottrell THC Positive Abnormal NEGATIVE [facility] Comment on above: Performed By: #### D RUGRPD #### [facility] [address] [place] [address] Dr. Amanda Cottrell GI PANEL (PCR)on 12-11-2021 Adenovirus F 40/41 Not detected Normal NOT DETECTED [facility] Comment on above: Performed By: #### V ANCT #### [facility] [address] [place] [address] Dr. Amanda Cottrell Astrovirus Not detected Normal NOT DETECTED [facility] Comment on above: Performed By: #### V ANCT #### [facility] [address] [place] [address] Dr. Amanda Cottrell C. Diff toxin A/B Not detected Normal NOT DETECTED [facility] Comment on above: Performed By: #### V ANCT #### [facility] [address] [place] [address] Dr. Amanda Cottrell Campylobacter Not detected Normal NOT DETECTED [facility] Comment on above: Performed By: #### V ANCT #### [facility] [address] [place] [address] Dr. Amanda Cottrell Cryptosporidium Not detected Normal NOT DETECTED [facility] Comment on above: Performed By: #### V ANCT #### [facility] [address] [place] [address] Dr. Amanda Cottrell Cyclos. Cayetanensis Not detected Normal NOT DETECTED [facility] Comment on above: Performed By: #### V ANCT #### [facility] [address] [place] [address] Dr. Amanda Cottrell E. Coli O157 Not Applicable Normal Not Applicable [facility] Comment on above: Performed By: #### V ANCT #### [facility] [address] [place] [address] Dr. Amanda Cottrell E. histolytica Not detected Normal NOT DETECTED [facility] Comment on above: Performed By: #### V ANCT #### [facility] [address] [place] [address] Dr. Amanda Cottrell EAEC Not detected Normal NOT DETECTED [facility] Comment on above: Performed By: #### V ANCT #### [facility] [address] [place] [address] Dr. Amanda Cottrell EIEC Not detected Normal NOT DETECTED [facility] Comment on above: Performed By: #### V ANCT #### [facility] [address] [place] [address] Dr. Amanda Cottrell EPEC Not detected Normal NOT DETECTED [facility] Comment on above: Performed By: #### V ANCT #### [facility] [address] [place] [address] Dr. Amanda Cottrell ETEC Not detected Normal NOT DETECTED [facility] Comment on above: Performed By: #### V ANCT #### [facility] [address] [place] [address] Dr. Amanda Cottrell G. Lamblia Not detected Normal NOT DETECTED [facility] Comment on above: Performed By: #### V ANCT #### [facility] [address] [place] [address] Dr. Amanda JACKSONANEL CONTROLS PASSED Normal [facility] Comment on above: Performed By: #### V ANCT #### [facility] [address] [place] [address] Dr. Amanda WARNER KAMRAN HEADER GI PANEL BACTERIA Normal T [facility] Comment on above: Performed By: #### V ANCT #### [facility] [address] [place] [address] Dr. Amanda WARNERHD ECOLI GI PANEL DIARRHEAGENIC E.COLI / SHIGELLA Normal [facility] Comment on above: Performed By: #### V ANCT #### [facility] [address] [address] [address] Amanda RUIZ INFO SEE BELOW Normal [facility] Comment on above: Result Comment: EAEC - Enteroaggregative E. Coli EPEC- Enteropathogenic E. Coli ETEC- Enterotoxigenic E. Coli lt/st STEC- Shigella-like toxin-producing E. Coli stx1/stx2 EIEC- Shigella/Enteroinvasive E. Coli Performed By: #### V ANCT #### [facility] [address] [address] [address] Amanda RUIZ PARASITES GI PANEL PARASITES Normal [facility] Comment on above: Performed By: #### V ANCT #### [facility] [address] [place] [address] Dr. Amanda RUIZ VIRUS GI PANEL VIRUSES Normal The [facility] Comment on above: Performed By: #### V ANCT #### [facility] [address] [place] [address] Dr. Amanda Cottrell Norovirus GI/GII Not detected Normal NOT DETECTED The [facility] Comment on above: Performed By: #### V ANCT #### [facility] [address] [place] [address] Dr. Amanda Cottrell P. Shigelloides Not detected Normal NOT DETECTED The [facility] Comment on above: Performed By: #### V ANCT #### [facility] [address] [place] [address] Dr. Amanda Cottrell Rotavirus A Not detected Normal NOT DETECTED The [facility] Comment on above: Performed By: #### V ANCT #### [facility] [address] [place] [address] Dr. Amanda Cottrell Salmonella Not detected Normal NOT DETECTED The [facility] Comment on above: Performed By: #### V ANCT #### [facility] [address] [address] [address] Amanda Cottrell Sapovirus Not detected Normal NOT DETECTED The [facility] Comment on above: Performed By: #### V ANCT #### [facility] [address] [place] [address] Dr. Amanda Cottrell STEC Not detected Normal NOT DETECTED The [facility] Comment on above: Performed By: #### V ANCT #### [facility] [address] [place] [address] Dr. Amanda Cottrell Vibrio Not detected Normal NOT DETECTED The [facility] Comment on above: Performed By: #### V ANCT #### [facility] [address] [place] [address] Dr. Amanda Cottrell Vibrio Cholera Not detected Normal NOT DETECTED The [facility] Comment on above: Performed By: #### V ANCT #### [facility] [address] [place] [address] Dr. Amanda Cottrell Y. Enterocolitica Not detected Normal NOT DETECTED The [facility] Comment on above: Performed By: #### V ANCT #### [facility] [address] [place] [address] Dr. Amanda Cottrell LACTATE/LACTIC ACIDon 2021 Lactate [Moles/Vol] 1.0 mmol/L Normal 0.7-2.0 [facility] Comment on above: Performed By: #### C BCMAN #### [facility] [address] [place] [address] Dr. Amanda Cottrell LIPASEon 12-11-2021 Lipase [Catalytic activity/Vol] 97.0 U/L Normal 23.0-300.0 [facility] Comment on above: Performed By: #### C MP, LIPA #### [facility] [address] [place] [address] Dr. Amanda Cottrell OCC BLD IMMUNO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 Juares Zone: Age <50 300-450 Age 50-75 300-900 Age >75 300-1800 Usually represents mild to moderate HF but other cardiopulmonary causes cannot be ruled out. Rule In: Age <50 >450 Age 50-75 >900 Age >75 >1800 Natriuretic peptide B (Bld) [Mass/Vol] 31 pg/mL <300 [place] Comment on above: Pro-BNP results zora ot be compared to BNP results. CBC Auto Differentialon Basophils (Bld) [#/Vol] 0.00 10*3/uL [place] Basophils/100 WBC (Bld) 0 % 0 - 2 % [place] Differential Type NOT REPORTED [place] Eosinophils (Bld) [#/Vol] 0.09 10*3/uL [place] Eosinophils/100 WBC (Bld) 2 % 1 - 4 % [place] Erythrocyte distribution width (RBC) [Ratio] 14.9 % High 11.8 - 14.4 % [place] Hematocrit (Bld) [Volume fraction] 37.8 % Low 40.7 - 50.3 % [place] Hemoglobin (Bld) [Mass/Vol] 12.4 g/dL Low 13 - 17 g/dL [place] Immature granulocytes (Bld) [#/Vol] 0.00 10*3/uL [place] Immature granulocytes (Bld) [#/Vol] 0 % 0 [place] Interpretation and review of laboratory results Abnormal [place] Lymphocytes (Bld) [#/Vol] 0.61 10*3/uL [place] Lymphocytes/100 WBC (Bld) 13 % Low 24 - 43 % [place] MCH (RBC) [Entitic mass] 28.7 pg 25. 2 - 33.5 pg [place] MCHC (RBC) [Mass/Vol] 32.8 g/dL 28.4 - 34.8 g/dL [place] MCV (RBC) [Entitic vol] 87.5 fL 82.6 - 102.9 fL [place] Monocytes (Bld) [#/Vol] 1.03 10*3/uL [place] Monocytes/100 WBC (Bld) 22 % High 3 - 12 % [place] Morphology Adis (Bld) [Interp] Normal [place] Platelet mean volume (Bld) [Entitic vol] 8.6 fL 8.1 - 13.5 fL [place] Platelets (Bld) [#/Vol] 195 10*3/uL [place] Platelets (Bld) [#/Vol] NOT REPORTED [place] RBC (Bld) [#/Vol] 4.32 10*6/uL 4.21 - 5.7 7 m/uL [place] RBC morphology finding Nom (Bld) NOT REPORTED [place] Segmented neutrophils/100 WBC (Bld) 63 % 36 - 65 % [place] Segs Absolute 2.97 [place] WBC (Bld) [#/Vol] 4.7 10*3/uL [place] WBC (Bld) [#/Vol] 0.0 10*3/uL 0.0 per 10 0 WBC [place] WBC Morphology NOT REPORTED [place] COVID-19, PCRon 12-16-2020 Interpretation and review of laboratory results Abnormal [place] SARS-CoV-2, Rapid DETECTED Abnormal Not Detected [place] Comment on above: Rapid NAAT: The [...] this assay. Fact sheet for Healthcare Providers: https://www.fda.gov/media/842304/download Fact sheet for Patients: https://www.fda.gov/media/342690/download Methodology: Isothermal Nucleic Acid Amplification Results reported to the appropriate Health Department Source .NASOPHARYNGEAL SWAB [place] CT CHEST PULMONARY EMBOLISM W CONTRASTon 12-16-2020 Lymphocytes (Bld) [#/Vol] No evidence of pulmonary embolism or acute aortic disease. Mild mediastinal lymphadenopathy. Bilateral lower lobe infiltrates/atelectat ic changes but no evidence of pleural disease. [place] EXAMINATION: CTA OF THE CHEST 12/16/2020 [...] No acute bone or soft tissue abnormality. [place], [facility] Incoming Radiant Results From CrossCurrent/Eachpal - 12/16/2020 11:32 AM EST EXAMINATION: CTA [...] changes but no evidence of pleural disease. [facility], [place] Drug screen multi urineon Amphetamine Screen, Ur Positive Abnormal NEGATIVE [facility], [place] Barbiturate Screen, Ur Negative NEGATIVE [facility], [place] Benzodiazepine Screen, Urine Negative NEGATIVE [facility], [place] Buprenorphine Urine Negative NEGATIVE [facility], [place] Cannabinoid Scrn, Ur Positive Abnormal NEGATIVE [facility], [place] Cocaine Metabolite, Urine Positive Abnormal NEGATIVE [facility], [place] Interpretation and review of laboratory results Abnormal [place] MDMA, Urine NOT REPORTED NEGATIVE [facility] [place], [place] Methadone Screen, Urine Negative NEGATIVE [facility], [place] Methamphetamine, Urine Positive Abnormal NEGATIVE [facility], [place] Opiates, Urine Positive Abnormal NEGATIVE [facility], [place] Oxycodone Screen, Ur Negative NEGATIVE [facility], [place] Phencyclidine, Urine Negative NEGATIVE [facility], [place] Propoxyphene, Urine Negative NEGATIVE [facility], [place] Test Information NOT REPORTED [place] Tricyclic Antidepressants, Urine Negative NEGATIVE [facility], [place] Comment on above: Drug screen results are to be used for medical purposes only. All positive results are unconfirmed. Testing for employment or legal uses should be sent to a reference laboratory for confirmation. Ethanolon 12-16-2020 Ethanol [Mass/Vol] mg/dL <10 mg/dL [place] Ethanol percent <0.010 <0.010 % [facility] José Miguel [place], [place] Hepatic Function Panelon Albumin [Mass/Vol] 3.9 g/dL 3.5 - 5.2 g/dL [place] Albumin/Globulin [Mass ratio] 1.1 {ratio} [place] ALP [Catalytic activity/Vol] 91 U/L 40 - 129 U/L [place] ALT [Catalytic activity/Vol] 52 U/L High 5 - 41 U/L [place] AST [Catalytic activity/Vol] 39 U/L <40 [place] Bilirubin Ql (U) 0.26 mg/dL Low 0.3 - 1.2 mg/dL [place] Bilirubin, Indirect CANNOT BE CALCULATED 0 - 1 mg/dL [place] Bilirubin.direct [Mass/Vol] mg/dL <0.31 mg/dL [place] Globulin (S) [Mass/Vol] NOT REPORTED 1.5 - 3.8 g/dL [place] Interpretation and review of laboratory results Abnormal [place] Protein [Mass/Vol] 7.5 g/dL 6.4 - 8.3 g/dL [place] Metabolic Panelon 12-16-2020 GFR/1.73 sq M predicted among non-blacks MDRD (S/P/Bld) [Vol rate/Area] [place] Comment on above: Average GFR for 30-3 9 years old: 107 mL/min/1.73sq m Chronic Kidney Disease: <60 mL/min/1.73sq m Kidney failure: <15 mL/min/1.73sq m eGFR calculated using average adult body mass. Additional eGFR calculator available at: [email or web address] Stage 1: Some kidney damage normal GFR Stage 2: Mild kidney damage GFR 60-89 Stage 3: Moderate kidney damage GFR 30-59 Stage 4: Severe kidney damage GFR 15-29 Stage 5: Severe kidney damage GFR <15 ESRD - chronic treatment by dialysis or transplant Otheron 12-16-2020 SARS-CoV-2 [place] Troponinon 12-16-2020 Troponin I.cardiac [Mass/Vol] NOT REPORTED [place] Troponin T.cardiac [Mass/Vol] NOT REPORTED <0.03 ng/mL [place] Troponin, High Sensitivity 6 ng/L 0 - 22 ng/L [place] Comment on above: High Sensitivity Troponin values cannot be compared with other Troponin methodologies. Patients with high levels of Biotin oral intake (i.e >5mg/day) may have falsely decreased Troponin levels. Samples collected within 8 hours of biotin intake may require additional information for diagnosis. Troponin I.cardiac [Mass/Vol] NOT REPORTED [place] Troponin T.cardiac [Mass/Vol] NOT REPORTED <0.03 ng/mL [place] Troponin, High Sensitivity 6 ng/L 0 - 22 ng/L [place] Comment on above: High Sensitivity Troponin values cannot be compared with other Troponin methodologies. Patients with high levels of Biotin oral intake (i.e >5mg/day) may have falsely decreased Troponin levels. Samples collected within 8 hours of biotin intake may require additional information for diagnosis. XR CHEST PORTABLEon 12-16-19 Kirt, pn Incoming Radiant Results From CrossCurrent/Eachpal - 12/16/2020 7:18 AM EST EXAMINATION: ONE [...] viral pneumonia. Pulmonary edema cannot be excluded. [place] EXAMINATION: ONE XRA Y VIEW OF [...] edema cannot be excluded. JUS Roper Discharge [id number] Discharge Profile2 Discharge Orders: Anticipated Discharge Date: Anticipated Discharge [id number] Anticipated Discharge Time09:25 Activity: activity as tolerated. May shower. Diet: Dietregular Provider FINAL REVIEW of Orders: Final Review: Final Review of Medication Reconciliation and Orders Completedby Physician Reviewing ProviderTimmy Hayward MD at 29-Apr-2020 09:29:52 Appointments: Follow-Up Appointment 01: Physician/Dept/Negra Guerrero Reason for ReferralCOPD Call to Schedule in2 weeks Phone [phone] Follow-Up Appointment 02: Physician/Dept/Negra Vargas Call to Schedule in1 week Electronic Signatures: Timmy Hayward) (Signed 29-Apr-2020 09:29) Authored: Discharge Orders, Provider FINAL REVIEW of Orders, Appointments, Gold Form - Certified Athletic Trainer Summary Last Updated: 29-Apr-2020 09:29 by Timmy Hayward) [facility] History and Physical - Critical Care [...] Objective: Objective Information: Objective Information T PRBPSpO2 [id number]/649 4% Date/Time04/29 13: 13: 13: 13: 13:09 Range(36.8C - 37.8C ) (100 - 106 ) (18 - 18 ) (116 - 132 )/ (57 - 64 ) (94% - 94% ) Highest temp of 37.8 C was recorded at 04/28 19:46 Pain reported at 04/29 7:58: 0 = None ---- Intake and Output ----- Mn/Dy/Year TimeIntakeOutpres[facility] centerNet Apr 29, 2020 2:00 [id number] Apr 29, 2020 6:00 [id number] Apr 28, 2020 10:00 [id number] The Intake and Output Totals for the last 24 hours are: [facility] [id number] Date: Weight/Scale Type: 29-Apr-2020 04:5284.3 kg 28-Apr-2020 [...] Saul Guerrero Decision to Admit: 27-Apr-2020 Mellisa Mota Electronic Signatures: Saul Guerrero) (Signed 29-Apr-2020 19:14) Authored: Service, History of Present Illness, Comorbidities, Social History, Allergies, Medications Prior to Admission, Review of Systems, Objective, Assessment and Plan, Signatures/Attestatio n/Certification Last Updated: 29-Apr-2020 19:14 by Saul Guerrero) [facility] BASIC METABOLIC PANELon 06- Anion gap [Moles/Vol] 13 mmol/L Normal 10 - 20 [facility] Comment on above: Performed By: #### B MP ####[facility] [place] [address] Calcium [Mass/Vol] 9.0 mg/dL Normal 8.6 - 10.3 [facility] Comment on above: Performed By: #### B MP ####[facility] [place] [address] Chloride [Moles/Vol] 105 mmol/L Normal 98 - 107 [facility] Comment on above: Performed By: #### B MP ####[id number] [place] [address] Creatinine [Mass/Vol] 0.84 mg/dL Normal 0.50 - 1.30 [facility] Comment on above: Performed By: #### B MP ####[address] [address] GFR- AM. >60 Normal >60 [facility] Comment on above: Result Comment: CALC ULATIONS OF ESTIMATED GFR ARE PERFORMED USING THE MDRD STUDY EQUATION FOR THE IDMS-TRACEABLE CREATININE METHODS. CLIN CHEM 2007;53:766-72 Performed By: #### B MP ####[address] [address] GFR-NON AM. >60 Normal >60 [facility] Comment on above: Performed By: #### B MP ####[address] [address] Glucose [Mass/Vol] 173 mg/dL High 74 - 99 [facility] Comment on above: Performed By: #### B MP ####[address] [address] HCO3 (Bld) [Moles/Vol] 25 mmol/L Normal 21 - 32 [facility] Comment on above: Performed By: #### B MP ####[address] [address] Potassium [Moles/Vol] 4.3 mmol/L Normal 3.5 - 5.3 [facility] Comment on above: Performed By: #### B MP ####[address] [address] Sodium [Moles/Vol] 139 mmol/L Normal 136 - 145 [facility] Comment on above: Performed By: #### B MP ####[address] [address] Urea nitrogen [Mass/Vol] 11 mg/dL Normal 6 - 23 [facility] Comment on above: Performed By: #### B MP ####[address] [address] CBCon 04-28-2020 Erythrocyte distribution width (RBC) [Ratio] 13.8 % Normal 11.5 - 14.5 [facility] Comment on above: Performed By: #### C BC ####[facility] [place] [address] Hematocrit (Bld) [Volume fraction] 41.3 % Normal 41.0 - 52.0 [facility] Comment on above: Performed By: #### C BC ####[facility] [place] [address] Hemoglobin (Bld) [Mass/Vol] 13.8 g/dL Normal 13.5 - 17.5 [facility] Comment on above: Performed By: #### C BC ####[address] [place] [address] MCHC (RBC) [Mass/Vol] 33.4 g/dL Normal 32.0 - 36.0 [facility] Comment on above: Performed By: #### C BC ####[address] [place] [address] MCV (RBC) [Entitic vol] 91 fL Normal 80 - 100 U [facility] Comment on above: Performed By: #### C BC ####[address] [place] [address] Platelets (Bld) [#/Vol] 239 10*3/uL Normal 150 - 450 [facility] Comment on above: Performed By: #### C BC ####[address] [place] [address] RBC (Bld) [#/Vol] 4.52 x10E12/L Normal 4.50 - 5.90 [facility] Comment on above: Performed By: #### C BC ####[address] [place] [address] WBC (Bld) [#/Vol] 8.4 10*3/uL Normal 4.4 - 11.3 [facility] Comment on above: Performed By: #### C BC ####[address] [place] [address] Discharge Planning [id number] 0 04-28-2020 Discharge Planning Note2 Discharge Plann ing: Anticipated Discharge [id number] Discharge Planning 04/27/2020 patient admit to micu [...] TCC 04/28/20 1245 Social Work Note THE CHIROPRACTIC NEUROLOGIST HAS BEEN NOTIFIED OF THE PT'S SELF PAY STATUS. THE PT HAS BEEN ASSESSED BY THE [facility] ON 04/27/20. THE PT HAS BEEN DEEMED FINANCIALLY ELIGIBLE FOR MEDICAID APPLICATION WITH VERBAL CONSENT OBTAINED TO ALLOW [facility] AUTHORIZED [employer]ER[employer] DEVELOPER IN THE MEDICAID APPLICATION PROCESS. Lunan BOB, [facility] 04/28/20 1400 Social Work Note THE CHIROPRACTIC NEUROLOGIST MET THIS DATE WITH THE PT BEING TREATED IN THE MICU. THE PT STATES THAT HE IS TEMPORARILY RESIDING WITH HIS BOSS AWAITING AN APT ON HIS OWN. THE PT STATED SPEAKING WITH THE [facility] LIAISON ON 04/27/20 AND APPLICATION FOR MEDICAID. THE PT STATES THAT HIS CURRENT ADDRESS IS TEMPORARY WITH A GOAL OF MOVING TO HIS OWN APT. THE PT STATES THAT HE HAS BEEN OUT OF SENIOR LIVING SINCE THE BEGINNING OF THE YEAR AND [...] OWN . THE PT ALSO ACCEPTED THE [facility] AND [facility]. THE CHIROPRACTIC NEUROLOGIST WILL CONTINUE TO REMAIN AVAILABLE SUPPORTIVELY. Luann BOB, [facility] 04/29/2020 @ 1112 Jalousies Installer Note: SWer is assissting with D/C plan and Meds to Bed fill. SWer is going to fill scripts through [facility] and bill to the department accordingly. RUKHSANA Villegas CHIROPRACTIC NEUROLOGIST 04/29/20 As this nurse was reviewing pt's [...] going instructions. CTRN. Assessment: Discharge Planning Assessment [id number] Stated Reason for Admissionsob(1) [place]) Lives Withfriend(s)(1) Living Arrangementsnursing home; house(1) Resource/Environmenta l Concernsnon(1) [place]) [facility] Nursing Checklist: Lines/Cathetersremove d/appropriate for next level of care Discharge Med Rec Reconciled with Jj Patient has Prescriptionsyes DME equipment orderedyes Transportation for Discharge Confirmedyes Discharge Instructions Reviewed WithPatient Discharge Instructions Outcomeverbalize recall/understanding Discharge Documentation: Discharge/Transfer Date/[id number] 13:13 Discharge Modewheelchair Transportation Methodtransportation service Valuables/Medications /Belongings Returnedyes Final DispositionHome Electronic Signatures: Leilani Valencia (STEERER) (Signed 28-Apr-2020 11:45) Authored: Discharge Planning Note2 Marjorie [place] (RN) (Signed 27-Apr-2020 22:37) Authored: Discharge Planning Note2 Stacey Goldman (NELLA) (Signed 29-Apr-2020 11:13) Authored: Discharge Planning Note2 Luann Larkin (NELLA) (Signed 28-Apr-2020 14:09) Authored: Discharge Planning Note2 Ava Kramer (RN) (Signed 29-Apr-2020 13:14) Authored: Discharge Planning Note2 Last Updated: 29-Apr-2020 13:14 by Ava Kramer (RN) References: 1. Data Referenced From Patient Profile - Adult v2 27-Apr-2020 11:37 [facility] History and Physical - Laureen Sorenson 04-28-2020 History and Physical - Critical Care [...] Objective: Objective Information: Objective Information T PRBPSpO2 [id number]/669 1% Date/Time04/28 14: 16: 16: 16: 16:08 Range(36.5C - 36.9C [...] None ---- Intake and Output ----- Mn[facility]Dy[facility] Apr 28, 2020 2:00 [id number] Apr 28, 2020 6:00 [id number] Apr 27, 2020 10:00 [id number] The Intake and Output Totals for the last 24 hours are: [facility]akeOutAt[facility] [id number] Date: Weight/Scale Type: 28-Apr-2020 06:0081.3 kg / [...] 239 RDW-CV 13.8 Culture, Blood Trending View [id number] 08:33:00 27-Apr-2020 07:49:00 Culture, BloodNEGATIVE TO DATE, [...] Saul Guerrero Decision to Admit: 27-Apr-2020 Mellisa Mota Admission Order Certification order has been placed by Saul Guerrero Electronic Signatures: Saul Guerrero) (Signed 28-Apr-2020 17:00) Authored: Service, History of Present Illness, Comorbidities, Social History, Allergies, Medications Prior to Admission, Review of Systems, Objective, Assessment and Plan, Signatures/Attestatio n/Certification Last Updated: 28-Apr-2020 17:00 by Saul Guerrero) [facility] ARTERIAL FULL PANELon 2019 BASE EXCESS-BLOOD -1.7 mmol/L Normal -2.0 - 3.0 [facility] Comment on above: Performed By: #### A FPA3 #### [address] [address] CALCIUM,IONIZED 1.21 mmol/L Normal 1.10 - 1.33 [facility] Comment on above: Performed By: #### A FPA3 #### [address] [address] Chloride [Moles/Vol] 103 mmol/L Normal 98 - 107 [facility] Comment on above: Performed By: #### A FPA3 #### [address] [address] FIO2 28 % Normal [facility] Comment on above: Performed By: #### A FPA3 #### [address] [address] Glucose [Mass/Vol] 113 mg/dL High 74 - 99 [facility] Comment on above: Performed By: #### A FPA3 #### [address] [address] Hematocrit (Bld) [Volume fraction] 49.0 % Normal 41.0 - 52.0 [facility] Comment on above: Performed By: #### A FPA3 #### [address] [address] HGB,CALCULATED 16.5 g/dL Normal 13.5 - 17.5 [facility] Comment on above: Performed By: #### A FPA3 #### [address] [address] Lactate [Moles/Vol] 1.4 mmol/L Normal 0.4 - 2.0 [facility] Comment on above: Performed By: #### A FPA3 #### [address] [address] Oxygen (Bld) [Partial pressure] 95 mm[Hg] Normal 85 - 95 [facility] Comment on above: Performed By: #### A FPA3 #### [address] [address] PCO2 41 mmHg Normal 38 - 42 [facility] Comment on above: Performed By: #### A FPA3 #### [address] [address] pH (Bld) 7.37 [pH] Low 7.38 - 7.42 [facility] Comment on above: Performed By: #### A FPA3 #### [address] [address] Potassium [Moles/Vol] 3.8 mmol/L Normal 3.5 - 5.3 [facility] Comment on above: Performed By: #### A FPA3 #### [address] [address] RBC (Bld) [#/Vol] 23.4 mmol/L Normal 22.0 - 26.0 [facility] Comment on above: Performed By: #### A FPA3 #### [address] [address] SO2 97 % Normal 94 - 100 [facility] Comment on above: Performed By: #### A FPA3 #### [facility] [address] [place] [address] Sodium [Moles/Vol] 137 mmol/L Normal 136 - 145 [facility] Comment on above: Performed By: #### A FPA3 #### [facility] [address] [place] [address] Admission Risk Screen - Adul ton 04-27-2020 [...] risk with low risk for associated injury Talihina Safety InterventionsWDL *orient to call system *instruct [...] Communicatenone Learning Preferencesaudio Cultural Considerationsnone Developmental Considerationsnone Mu-Ism Considerationsnone Learning Assessment (Other Learner): Other learner [...] Spiritual Screen: Are there any cultural, spiritual, hoahaoism practices/values/need s that are important for us to knowno CAGE: Is this an injured patient at a Trauma Center ([facility]/[place]/[facility]/[place]): no Vaccinations: Vaccination - Influenza Vaccination Screen: Is it flu season (between and February 21)No Vaccination - Pneumonia Vaccination Screen: Patient has received a previous pneumonia vaccine:no/unknown... Immunocompetent persons with underlying chronic conditions or reside in long-term care facilitiesnone of these conditions Persons with [...] From Triage - ED 27-Apr-2020 07:38 [facility] BLOOD CULTURE, BACTERIALon 0 04-27-2020 Cholesterol [Mass/Vol] PATIENT: TIP ANSARI LOCATION: [address]#: [id number] : 84 AGE: SEX: M ORDERED BY: MELLISA MOTA SOURCE: Blood COLLECTED: 04/27/20 08:33 ANTIBIOTICS AT [facility].: RECEIVED : 04/27/20 18:00 SITE: R E S U L T S BLOOD CULTURE, BACTERIAL FINAL 05/02/20 19:42 No Growth at 1 days No Growth at 2 days No Growth at 3 days No Growth at 4 days NO GROWTH - FINAL REPORT Normal [facility] Comment on above: Performed By: #### P TINR #### [address] [address] Cholesterol [Mass/Vol] PATIENT: TIP ANSARI [facility] [id number] : 84 AGE: SEX: M ORDERED BY: MELLISA MOTA SOURCE: Blood COLLECTED: 04/27/20 07:49 ANTIBIOTICS AT [facility].: RECEIVED : 04/27/20 18:00 SITE: R E S U L T S BLOOD CULTURE, BACTERIAL FINAL 05/02/20 19:42 No Growth at 1 days No Growth at 2 days No Growth at 3 days No Growth at 4 days NO GROWTH - FINAL REPORT [facility] Comment on above: Performed By: #### P TINR #### [address] [address] BNPon 04-27-2020 Natriuretic peptide B (Bld) [Mass/Vol] 19 pg/mL Normal 0 - 99 [facility] Comment on above: Result Comment: . <1 00 pg/mL - Heart failure unlikely 100-299 pg/mL - Intermediate probability of acute heart . failure exacerbation. Correlate with clinical . context and patient history. >=300 pg/mL - Heart Failure likely. Correlate with clinical . context and patient history. BNP testing is performed using different testing methodology at [facility] than at other [facility]. Direct result comparisons should only be made within the same method. Performed By: #### B NP2 #### [address] [address] CBC AND DIFFERENTIALon 04-27 % AUTOMATED IMMATURE GRAN 0.2 % Normal 0.0 - 0.9 [facility] Comment on above: Result Comment: [place] ture Granulocyte Count (IG) includes promyelocytes, myelocytes and metamyelocytes but does not include bands. Percent differential counts (%) should be interpreted in the context of the absolute cell counts (cells/L). Performed By: #### C BCDF #### [address] [address] Basophils (Bld) [#/Vol] 0.06 10*3/uL Normal 0.00 - 0.1 0 [facility] Comment on above: Performed By: #### C BCDF #### [address] [address] Basophils/100 WBC (Bld) 0.6 % Normal 0.0 - 2.0 [facility] Comment on above: Performed By: #### C BCDF #### [address] [address] Eosinophils (Bld) [#/Vol] 0.87 10*3/uL High 0.00 - 0.70 [facility] Comment on above: Performed By: #### C BCDF #### [address] [address] Eosinophils/100 WBC (Bld) 8.6 % Normal 0.0 - 6.0 [facility] Comment on above: Performed By: #### C BCDF #### [address] [address] Erythrocyte distribution width (RBC) [Ratio] 13.6 % Normal 11.5 - 14.5 [facility] Comment on above: Performed By: #### C BCDF #### [address] [address] Hematocrit (Bld) [Volume fraction] 49.2 % Normal 41.0 - 52.0 [facility] Comment on above: Performed By: #### C BCDF #### [address] [address] Hemoglobin (Bld) [Mass/Vol] 16.7 g/dL Normal 13.5 - 17.5 [facility] Comment on above: Performed By: #### C BCDF #### [address] [address] Lymphocytes (Bld) [#/Vol] 2.10 10*3/uL Normal 1.20 - 4.80 [facility] Comment on above: Performed By: #### C BCDF #### [address] [address] Lymphocytes/100 WBC (Bld) 20.6 % Normal 13.0 - 44.0 [facility] Comment on above: Performed By: #### C BCDF #### [address] [address] MCHC (RBC) [Mass/Vol] 33.9 g/dL Normal 32.0 - 36.0 [facility] Comment on above: Performed By: #### C BCDF #### [address] [address] MCV (RBC) [Entitic vol] 91 fL Normal 80 - 100 [facility] Comment on above: Performed By: #### C BCDF #### [address] [address] Monocytes (Bld) [#/Vol] 0.88 10*3/uL Normal 0.10 - 1.0 0 [facility] Comment on above: Performed By: #### C BCDF #### [address] [address] Monocytes/100 WBC (Bld) 8.7 % Normal 2.0 - 10.0 [facility] Comment on above: Performed By: #### C BCDF #### [address] [address] Neutrophils (Bld) [#/Vol] 6.24 10*3/uL Normal 1.20 - 7.70 [facility] Comment on above: Performed By: #### C BCDF #### [address] [address] Neutrophils/100 WBC (Bld) 61.3 % Normal 40.0 - 80.0 [facility] Comment on above: Performed By: #### C BCDF #### [address] [address] Platelets (Bld) [#/Vol] 256 10*3/uL Normal 150 - 450 [facility] Comment on above: Performed By: #### C BCDF #### [address] [address] RBC (Bld) [#/Vol] 5.41 x10E12/L Normal 4.50 - 5.90 [facility] Comment on above: Performed By: #### C BCDF #### [address] [address] WBC (Bld) [#/Vol] 10.2 10*3/uL Normal 4.4 - 11.3 [facility] Comment on above: Performed By: #### C BCDF #### [address] [address] CHEST 1 VIEWon 04-27-2020 CHEST 1 VIEW Patient Name: TIP ANSARI STUDY: CHEST 1 VIEW; 04/27/2020 8:25 am INDICATION: SOB. COMPARISON: None. ACCESSION NUMBER(S): [id number] ORDERING CLINICIAN: MELLISA MOTA FINDINGS: CARDIOMEDIASTINAL SILHOUETTE AND VASCULATURE: Cardiac size: Within normal limits. Aortic shadow: Within normal limits considering portable technique Mediastinal contours: Within normal limits considering portable technique Pulmonary vasculature: Within normal limits without definite congestion LUNGS: Appears to be mild hyperinflation lungs particular at the left upper chest indicating FRAME REPAIRER D. The lungs are clear without discrete infiltrate. ABDOMEN AND OTHER FINDINGS: No remarkable upper abdominal findings. BONES: No acute osseous changes. IMPRESSION: 1. Mild COPD. Electronically signed by: VINCE OROZCO MD Normal [facility] COMPREHENSIVE PANELon 2019 Albumin [Mass/Vol] 4.2 g/dL Normal 3.4 - 5.0 [facility] Comment on above: Performed By: #### C MP #### [address] [address] ALP [Catalytic activity/Vol] 65 U/L Normal 33 - 120 [facility] Comment on above: Performed By: #### C MP #### [address] [address] ALT [Catalytic activity/Vol] 60 U/L High 10 - 52 [facility] Comment on above: Result Comment: Susanne ents treated with Sulfasalazine may generate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 src gram/giemsa stain bct fungi/cell [facility] Work Phone: Start: 06-16-2022 ECHOCARDIOGRAM 3D Beverly Rasmussen MD Start: 06-16-2022 Antistreptolysin o screen Beverly Abernathy Start: 06-16-2022 LACTATE, SEPSIS Teresa Ann [facility] - [facility] Work Phone: Start: 06-16-2022 Natriuretic peptide Teresa Willoughby [facility] Work Phone: Start: 06-16-2022 STREP PNEUMONIAE ANTIGEN Beverly Rasmussen MD Start: 06-16-2022 Drug tst prsmv instrmnt chem analyzers pr date Beverly Rasmussen MD Start: 06-16-2022 Urnls dip stick/tablet rgnt auto w/o microscopy Beverly Rasmussen MD Start: 06-16-2022 Iadna s aureus methicillin resist amp probe tq Beverly Rasmussen MD Start: 06-15-2022 C-reactive protein Teresa Willoughby [facility] Work Phone: Start: 06-15-2022 Procalcitonin (pct) Marisol Andrea MD Work Phone (unformatted): [phone] Start: 06-15-2022 Ct thorax w/contrast material Mick [...] MG FOR LOW K Cathleen L Tobian [employer] - [employer] O[employer] Work Phone: Start: 05-06-2022 C-reactive protein Diane [...] material Marisol Andrea MD Work Phone (unformatted): [phone] Start: 02-14-2022 Echo tthrc r-t 2d w/wom-mode compl spec&colr d Tip Parker [employer] - [facility]YSIC[facility] Work Phone: Start: 01-30-2022 Ecg routine ecg w/least 12 lds w/i&r Marisol Andrea MD Work Phone (unformatted): [phone] Start: 01-30-2022 BASIC METABOLIC PANEL W/ REFLEX TO MG FOR LOW K Tom R Bowerbank DPM Work Phone: Start: 01-30-2022 Creatine kinase total Tom R Bowerbank DPM Work Phone: Start: 01-30-2022 Hepatic function panel Tom R Bowerban k DPM Work Phone: Start: 01-30-2022 IMMATURE PLATELET FRACTION Tom Edgar Luae rbank DPM Work Phone: Start: 01-29-2022 BASIC [...] ecg w/least 12 lds i&r only Tika Tapia [employer] - [employer] Work Phone: Start: 01-28-2022 BASIC METABOLIC PANEL [...] yr/> Marisol Andrea MD Work Phone (unformatted): [phone] Start: 01-25-2022 Nursing procedure Marisol Andrea MD Work Phone (unformatted): [phone] Start: 01-25-2022 BASIC METABOLIC PANEL W/ REFLEX TO MG FOR LOW K Fabricio Syed DO Work Phone: Start: 01-25-2022 Creatine kinase total Tom Potterbank DPM Work Phone: Start: 01-25-2022 Hepatic function panel Tom Potterban k DPM Work Phone: Start: 01-24-2022 COVID-19, RAPID Giles Junior Garcia DPM Work Phone: Start: 01-24-2022 INFECTIOUS DISEASE INTERVENTION Marisol Andrea MD Work Phone (unformatted): [phone] Start: 01-24-2022 Transesophageal echocardiography Marisol Andrea MD Work Phone (unformatted): [phone] Start: 01-24-2022 Cardiac catheterization Unknown Provider Result Start: 01-24-2022 Glucose blood reagent strip Fabricio Syed DO Work Phone: Start: 01-23-2022 Glucose blood reagent strip Fabricio Syed DO Work Phone: Start: 01-23-2022 Mri any jt lower extrem w/o & w/contrast matrl Marisol Andrea MD Work Phone (unformatted): [phone] Start: 01-23-2022 Glucose blood reagent strip aFbricio Syed DO Work Phone: Start: 01-23-2022 Hepatic function panel Fabricio contreras DO Work Phone: Start: 01-23-2022 End: 01-23-2022 Renal function panel Fabricio greene DO Work Phone: Start: 01-23-2022 Drug screen quantitative vancomycin Theo S Florentin DO Work Phone: Start: 01-23-2022 CULTURE, BLOOD 1 Marisol Andrea MD Work Phone (unformatted): [phone] Start: 01-22-2022 WOUND OSTOMY EVAL AND TREAT [...] 01-21-2022 Radex calcaneus minimum 2 views Razia Nguyen Hemarina [employer] - [employer] Work Phone: Start: 01-21-2022 CULTURE, BLOOD 1 Razia Nguyen Hemarina [employer] - [employer]US[employer] EDITOR Work Phone: Start: 01-21-2022 Assay of lactate Razia Nguyen Hemarina [employer] - [employer]US[employer] EDITOR Work Phone: Start: 01-21-2022 BASIC METABOLIC PANEL W/ REFLEX TO MG FOR LOW K Florencia Canela MD Work Phone: Start: 01-21-2022 C-reactive protein Razia Nguyen Hemarina [employer] - [employer]USCRIPT EDITOR Work Phone: Start: 01-20-2022 Assay of lactate Florencia Canela MD Work Phone: Start: 01-20-2022 CULTURE, BLOOD 1 Florencia Canela MD Work Phone: Start: 01-20-2022 LACTATE, SEPSIS Nicholas Martinez MD Work Phone: Start: 01-20-2022 Ct thorax w/contrast material Nicholas Martinez MD Work Phone: Start: 01-20-2022 Fibrin dgradj products d-dimer quantitative Nicholas Martinez MD Work Phone: Start: 01-20-2022 LACTATE, SEPSIS Nicholas Martienz MD Work Phone: Start: 01-20-2022 End: 01-20-2022 [...] Radex foot complete minimum 3 views Jessica Villaseñor MD Work Phone: Start: 01-10-2022 Assay of acetaminophen Jessica Villaseñor MD Work Phone: Start: 01-10-2022 Assay of ethanol Jessica Villaseñor MD Work Phone: Start: 01-10-2022 Assay of salicylate Jessica Villaseñor MD Work Phone: Start: 01-10-2022 Comprehensive metabolic panel Jessica Villaseñor MD Work Phone: Start: 12-20-2021 Arthrocentesis aspir&/inj major jt/bursa w/o Marisol Andrea MD Work Phone (unformatted): [phone] Start: 12-20-2021 Cul prsmptv pthgnc organism scrn w/colony estimj Theo Lerma DO Work Phone: Start: 12-20-2021 BASIC METABOLIC PANEL W/ REFLEX TO MG FOR LOW K Mckayla CONNELLC Work Phone: Start: 12-20-2021 Drug screen quantitative vancomycin Marisol Andrea MD Work Phone (unformatted): [phone] Start: 12-19-2021 Potassium serum plasma/whole blood Mckayla CONNELLC Work Phone: Start: 12-19-2021 Radiologic exam chest [...] MG FOR LOW K Cathleen L Tobian [employer] - [employer] O[employer] Work Phone: Start: 12-18-2021 Drug screen quantitative vancomycin Cathleen L Tobian [employer] - [employer]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 Work Phone: Start: 12-17-2021 BASIC METABOLIC PANEL W/ REFLEX TO MG FOR LOW K Marimar Ren MD Work Phone: Start: 12-17-2021 Blood count complete auto&auto difrntl wbc Marimar Ren MD Work Phone: Start: 12-17-2021 C-reactive protein Marimar Ren MD Work Phone: Start: 12-17-2021 CULTURE, BLOOD 1 Marisol Andrea MD Work Phone (unformatted): [phone] Start: 12-16-2021 Cell count misc body fluids [...] 12-16-2021 Radex shoulder complete minimum 2 views Maintimothy Njton DO Work Phone: Start: 12-16-2021 End: 12-16-2021 Dup-scan xtr veins unilateral/limited study Marimar Ren MD Work Phone: Start: 12-16-2021 BASIC METABOLIC PANEL W/ REFLEX TO MG FOR LOW K Mckayla Bertrand PA-C Work Phone: Start: 12-16-2021 Blood count complete auto&auto difrntl wbc Mckayla Bertrand PA-C Work Phone: Start: 12-16-2021 CULTURE, BLOOD 1 Marisol Andrea MD Work Phone (unformatted): [phone] Start: 12-15-2021 Cardiac catheterization Hemindermflaquita ibrahim MD Work Phone: Start: 12-15-2021 Creatinine other source Mckayla rangel PA-C Work Phone: Start: 12-15-2021 Blood count complete auto&auto difrntl wbc Mckayla Bertrand PA-C Work Phone: Start: 12-15-2021 Drug screen quantitative vancomycin Mckayla CONNELLC Work Phone: Start: 12-14-2021 BASIC METABOLIC PANEL W/ REFLEX TO MG FOR LOW K Fabricio Syed DO Work Phone: Start: 12-14-2021 Prothrombin time Fabricio Syed DO Work Phone: Start: 12-13-2021 End: 12-13-2021 CULTURE, BLOOD 1 Cathleen Moran [employer] - [employer] OPER[employer] Work Phone: Start: 12-13-2021 Fibrin dgradj products d-dimer quantitative Marimar Ren MD Work Phone: Start: 12-13-2021 IMMATURE PLATELET FRACTION Marimar Abernathy Work Phone: Start: 12-13-2021 Radex wrist complete minimum 3 views [facility] [employer] - [employer] Work Phone: Start: 12-13-2021 Assay of magnesium [...] Ecg routine ecg w/least 12 lds w/i&r Yareil Abernathy Meng PA-C Work Phone: Start: 05-29-2021 Dup-scan xtr veins complete bilateral study Yareli Abernathy Meng PAInfusion MedicalC Work Phone: Start: 12-16-2020 BLOOD GAS, ARTERIAL Nicholas Martinez Work Phone: Start: 12-16-2020 Ct thorax w/contrast material Nicholas Martinez Work Phone: Start: 12-16-2020 Assay of troponin quantitative Nicholas Martinez Work Phone: Start: 12-16-2020 COVID-19 Nicholas [employer] Work Phone: Start: 12-16-2020 Natriuretic peptide Nicholas [...] Treatment Date Care Activity Detail Author Start: 01-27-2026 End: 01-27-2026 Patient encounter procedure 01/27/2026 1:00 PM EDT [facility] [address] [place] [phone] Hilton Boyd MD [address] [place] [address] [facility] Start: 07-29-2025 End: 07-29-2026 Thyrotropin [Units/volume] in Serum or Plasma [facility] Comment on above: Expected: 07/29/2025 (Approximate), Expi res: 07/29/2026 Start: 07-29-2025 End: 07-29-2026 Thyroxine (T4) free [Mass/volume] in Serum or Plasma T4, free Lab Routine Anti-TPO antibodies present Abnormal thyroid function test Expected: 07/29/2025 (Approximate), Expires: 07/29/2026 [facility] Comment on above: Expected: 07/29/2025 (Approximate), Expi res: 07/29/2026 Start: 07-29-2025 End: 07-29-2026 Triiodothyronine (T3) Free [Mass/volume] in Serum or Plasma T3, free Lab Routine Anti-TPO antibodies present Abnormal thyroid function test Expected: 07/29/2025 (Approximate), Expires: 07/29/2026 [facility] Work Phone: Comment on above: Expected: 07/29/2025 (Approximate), Expi res: 07/29/2026 Start: 07-29-2025 End: 07-29-2025 Patient encounter procedure 07/29/2025 1:00 PM EDT Office Visit [facility] [address] [place] [phone] Hilton Boyd MD [address] [place] [address] Arrived [facility] [place] [facility] Comment on above: Arrived Start: 06-11-2023 Influenza vaccination Flu vaccine (#1) [facility] Start: 01-20-2023 Creatinine measurement Creatinine monitoring [facility] Start: 01-20-2023 Potassium monitoring Potassium monitoring [facility] Start: 09-05-2022 End: 09-05-2022 Patient encounter procedure 09/05/2022 Office Visit Cardiothoracic Surgery Carter Espinoza MD [id number] [place] [address] [facility] Start: 07-12-2022 Influenza vaccination [facility] Start: 07-09-2022 End: 07-09-2022 Patient encounter procedure [facility] Start: 06-27-2022 End: 06-27-2022 Patient encounter procedure 06/27/2022 Office Visit Infectious Diseases Marisol Andrea MD [address] [facility], [address] [place] [phone] (Work) [facility] Start: 05-23-2022 End: 05-23-2022 Patient encounter procedure 05/23/2022 Office Visit Podiatry Tip Grewal [address] [place] [address] [facility] Start: 03-21-2022 End: 03-21-2022 Patient encounter procedure 03/21/2022 Office Visit Infectious Diseases Marisol Andrea MD [address] [facility], [address] [place] [phone] (Work) [facility] Start: 03-01-2022 End: 01-29-2023 ECHO Complete 2D W Doppler W Color ECHO Complete 2D W Doppler W Color Echocardiography Routine MRSA bacteremia Moderate tricuspid regurgitation Expected: 03/01/2022 (Approximate), Expires: 01/29/2023 [employer] Phone: Comment on above: Expected: 03/01/2022 (Approximate), Expi res: 01/29/2023 Start: 02-28-2022 End: 02-28-2022 Patient encounter procedure 02/28/2022 Office Visit Cardiothoracic Surgery Carter Espinoza MD [address] [facility] [address] [facility] [address] [place] [address] [facility] Start: 02-26-2022 End: 02-26-2022 Patient encounter procedure 02/26/2022 Office Visit Podiatry Tip Grewal, DPM [address] [place], [place] [id number] [facility] Start: 02-16-2022 End: 01-30-2023 CT CHEST WO CONTRAST CT CHEST WO CONTRAST Imaging Routine Septic embolism (HCC) Expected: 02/16/2022, Expires: 01/30/2023 [employer] Phone: Comment on above: Expected: 02/16/2022, Expires: Start: 01-24-2022 End: 01-24-2022 Patient encounter procedure 01/24/2022 Office Visit Cardiothoracic Surgery Carter Espinoza MD [address] [facility] [address] [facility] [address] [place] [address] [facility] Start: 01-23-2022 End: 12-19-2022 ECHO Complete 2D W Doppler W Color ECHO Complete 2D W Doppler W Color Echocardiography Routine Acute bacterial endocarditis Expected: 01/23/2022 (Approximate), Expires: 12/19/2022 [employer] Phone: Comment on above: Expected: 01/23/2022 (Approximate), Expi res: 12/19/2022 Start: 01-23-2022 End: 12-19-2022 Urine Drug Screen Urine Drug Screen Lab Routine Acute bacterial endocarditis Septic embolism (HCC) Heroin abuse (HCC) Expected: 01/23/2022 (Approximate), Expires: 12/19/2022 [employer] Phone: Comment on above: Expected: 01/23/2022 (Approximate), Expi res: 12/19/2022 Start: 01-22-2022 End: 01-22-2022 Patient encounter procedure 01/22/2022 Office Visit Infectious Diseases Marisol Andrea MD [facility], [address] [place] [phone] (Work) [facility] Start: 01-17-2022 End: 12-20-2022 CT CHEST WO CONTRAST CT CHEST WO CONTRAST Imaging Routine Acute bacterial endocarditis Septic embolism (HCC) Expected: 01/17/2022, Expires: 12/20/2022 [employer] Phone: Comment on above: Expected: 01/17/2022, Expires: 3 Start: 01-03-2022 End: 12-20-2022 Culture, Blood 1 Culture, Blood 1 Microbiology Routine Septic embolism (HCC) MRSA bacteremia Expected: 01/03/2022, Expires: 12/20/2022 [employer] Phone: Comment on above: Expected: 01/03/2022, Expires: 3 Start: 2022 Lipid panel [email or web address] Start: 12-29-2021 End: 12-29-2021 Patient encounter procedure 12/29/2021 Appointment Oncology [email or web address] Med Surg Start: 12-22-2021 End: 12-22-2021 Patient encounter procedure 12/22/2021 Appointment Oncology [facility] Med Surg Start: 07-12-2021 Influenza vaccination Flu vaccine (#1) [email or web address] Start: 07-12-2020 Influenza vaccination Flu vaccine (#1) [facility] [place] Start: 2001 DTaP/Tdap/Td vaccine (1 - Tdap) DTaP/Tdap/Td vaccine (1 - Tdap) [facility] Start: 2001 Hepatitis A vaccine (1 of 2 - Risk 2-dose series) Hepatitis A vaccine (1 of 2 - Risk 2-dose series) [facility] Start: 2001 Hepatitis B vaccine (1 of 3 - Risk 3-dose series) Hepatitis B vaccine (1 of 3 - Risk 3-dose series) [facility] Start: 1997 HIV screening HIV screen [facility] Start: 1994 COVID-19 Vaccine (1) COVID-19 Vaccine (1) [facility] Work Phone: Start: 1994 Depression Screen Depression Screen [facility] Start: 1988 Pneumococcal 0-64 years Vaccine (1 - PCV) Pneumococcal 0-64 years Vaccine (1 - PCV) [facility] Start: 1988 Pneumococcal 0-64 years Vaccine (1 of 2 - PPSV23) Pneumococcal 0-64 years Vaccine (1 of 2 - PPSV23) [facility] Start: 1987 COVID-19 Vaccine (1) COVID-19 Vaccine (1) [facility] Start: 1983 Hepatitis A vaccine (1 of 2 - Risk 2-dose series) Hepatitis A vaccine (1 of 2 - Risk 2-dose series) [facility] Start: 1983 Varicella vaccine (1 of 2 - 2-dose childhood series) Varicella vaccine (1 of 2 - 2-dose childhood series) [facility] Start: 1982 COVID-19 Vaccine (#1) COVID-19 Vaccine (#1) [facility] Start: 1982 Hepatitis B vaccine (1 of 3 - 3-dose series) Hepatitis B vaccine (1 of 3 - 3-dose series) [facility] Start: 1982 Hepatitis C screening Hepatitis C screen [facility], [place] End: 06-22-2022 Basic Metabolic Panel w/ Reflex to MG Basic Metabolic Panel w/ Reflex to MG Lab Routine Daily for 3 Days starting 06/20/2022 until 06/22/2022, 2 completed [facility] Work Phone: Comment on above: Daily for 3 Days starting 06/20/2022 unt il 06/22/2022, 2 completed End: 12-20-2021 Body Fluid Cell Count with Differential [employer] Phone: Comment on above: One Time for 1 Occurrences starting 07/2022 until 12/20/2021 C-reactive protein C-Reactive Pr otein Lab Timed Every Other Day until discontinued starting 12/17/2021 [employer] Phone: Comment on above: Every Other Day until discontinued start ing 12/17/2021 C-reactive protein C-Reactive Pr otein Lab Add-On Q48H until discontinued starting 05/06/2022 [employer] Phone: Comment on above: Q48H until discontinued starting 022 End: 05-07-2022 C-reactive protein [employer] Phone: Comment on above: Once for 1 Occurrences starting 05/07/20 until 05/07/2022 End: 12-15-2021 Catheterization and angiography procedure details panel Cardiac Catheterization Cardiac Cath Routine One Time for 1 Occurrences starting 12/15/2021 until 12/15/2021 [employer] Phone: Comment on above: One Time for 1 Occurrences starting 02/2022 until 12/15/2021 End: 01-24-2022 Catheterization and angiography procedure details panel Cardiac Catheterization Cardiac Cath Routine One Time for 1 Occurrences starting 01/24/2022 until 01/24/2022 [employer] Phone: Comment on above: One Time for 1 Occurrences starting 01/09 until 01/24/2022 End: 06-22-2022 CBC panel - Blood by Automated count CBC Lab Routine Daily for 3 Days starting 06/20/2022 until 06/22/2022, 2 completed [facility] [employer] Phone: Comment on above: Daily for 3 Days starting 06/20/2022 unt il 06/22/2022, 2 completed Comprehensive metabo lic 2000 panel - Serum or Plasma [facility] Culture, Anaerobic a nd Aerobic [email or web address] Work Phone: Culture, Anaerobic a nd Aerobic Culture, Anaerobic and Aerobic Microbiology Routine 12/20/2021 2:15 PM EST [employer] Phone: Culture, Blood 1 Culture, Blood 1 Microbiology Routine 12/17/2021 5:47 AM EST [employer] Phone: Culture, Blood 1 Culture, Blood 1 Microbiology STAT 12/18/2021 4:15 PM EST [employer] Phone: Culture, Blood 1 Culture, Blood 1 Microbiology STAT 12/19/2021 5:43 AM EST [employer] Phone: End: 01-20-2022 Culture, Blood 1 [employer] Phone: Comment on above: One Time for 1 Occurrences starting 01/09 until 01/20/2022 Culture, Blood 1 Culture, Blood 1 Microbiology STAT 01/28/2022 1:31 PM EDT [employer] Phone: End: 05-05-2022 Culture, Blood 1 [employer] Phone: Comment on above: One Time for 1 Occurrences starting 04/12 until 05/05/2022 End: 05-17-2022 Culture, Blood 1 [employer] Phone: Comment on above: Once for 1 Occurrences starting 05/17/20 until 05/17/2022 End: 06-13-2022 Culture, Blood 1 [employer] Phone: Comment on above: Once for 1 Occurrences starting 06/13/20 until 06/13/2022 End: 05-05-2022 Culture, Blood 2 [employer] Phone: Comment on above: One Time for 1 Occurrences starting 04/12 until 05/05/2022 End: 05-05-2022 Culture, Urine [employer] Work Phone: Comment on above: One Time for 1 Occurrences starting 2 03/2022 until 05/05/2022 End: 01-10-2022 Drug screen multi urine Drug screen multi urine Lab Routine One Time for 1 Occurrences starting 01/10/2022 until 01/10/2022 [employer] Phone: Comment on above: One Time for 1 Occurrences starting 030 12/2021 until 01/10/2022 EKG 12 Lead [email or web address] [place] [place] End: 01-31-2022 EKG 12 Lead EKG 12 Lead ECG Routine Tomorrow AM for 1 Occurrences starting 01/31/2022 until 01/31/2022 [employer] Phone: Comment on above: Tomorrow AM for 1 Occurrences starting 0 01/31/2022 until 01/31/2022 EKG 12 Lead EKG 12 Lead ECG Routine 01/30/2022 8:47 AM EDT [employer] Phone: End: 03-02-2022 Hepatic function 1999 panel - Serum or Plasma Hepatic Function Panel Lab Routine 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 - for 16 Occurrences starting 01/30/2022 until 03/02/2022 [employer] Phone: Comment on above: 3 x per week - for 16 Occurrences starti ng 01/30/2022 until 03/02/2022 End: 06-19-2023 Hepatic function 1999 panel - Serum or Plasma Hepatic Function Panel Lab Routine 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, 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 for 6 Occurrences starting 06/19/2022 until 06/19/2023 MAURA GRIFFIN [employer] Phone: Comment on above: weekly for 6 Occurrences starting 2021 until 06/19/2023 Hepatitis A virus Ab [Presence] in Serum by Immunoassay [facility] Hepatitis B core antibody measurement [facility] End: 01-10-2022 Hepatitis B Surface Antigen [employer] Phone: Comment on above: One Time for 1 Occurrences starting 0 12/2021 until 01/10/2022 Hepatitis B virus surface Ab [Presence] in Serum [facility] End: 01-10-2022 Hepatitis C Antibody [employer] Phone: Comment on above: One Time for 1 Occurrences starting 0 12/2021 until 01/10/2022 End: 06-19-2022 Initiate RT Protocol Initiate RT Protocol Respiratory Care Routine Continuous until discontinued starting 06/19/2022 [employer] Phone: Comment on above: Continuous until discontinued starting 0 06/19/2022 Intermittent pulse oximetry Pulse Oximetry Spot Check Respiratory Care Routine As Needed until discontinued starting 12/13/2021 [employer] Phone: Comment on above: As Needed until discontinued starting Intermittent pulse oximetry Pulse Oximetry Spot Check Respiratory Care Routine As Needed until discontinued starting 01/20/2022 [employer] Phone: Comment on above: As Needed until discontinued starting Intermittent pulse oximetry Pulse Oximetry Spot Check Respiratory Care Routine Daily until discontinued starting 06/15/2022 [employer] Phone: Comment on above: Daily until discontinued starting 2021 Nasal Cannula Oxygen Nasal Cannu la Oxygen Respiratory Care Routine Daily until discontinued starting 06/15/2022 [employer] Phone: Comment on above: Daily until discontinued starting 2021 Oxygen therapy [Mini mum Data Set] Initiate Oxygen Therapy Protocol Respiratory Care Routine Daily until discontinued starting 12/13/2021 [employer] Phone: Comment on above: Daily until discontinued starting 2021 Oxygen therapy [Mini mum Data Set] Initiate Oxygen Therapy Protocol Respiratory Care Routine As Needed until discontinued starting 01/20/2022 [employer] Phone: Comment on above: As Needed until discontinued starting Oxygen therapy [Mini mum Data Set] Initiate Oxygen Therapy Protocol Respiratory Care Routine As Needed until discontinued starting 05/06/2022 [facility] [employer] Phone: Comment on above: As Needed until discontinued starting Oxygen therapy [Mini mum Data Set] Initiate Oxygen Therapy Protocol Respiratory Care Routine As Needed until discontinued starting 06/15/2022 [employer] Phone: Comment on above: As Needed until discontinued starting Oxygen therapy [Mini mum Data Set] Initiate Oxygen Therapy Protocol Respiratory Care Routine As Needed until discontinued starting 06/16/2022 [facility] [employer] Phone: Comment on above: As Needed until discontinued starting End: 12-13-2021 [facility] [employer] Phone: Comment on above: Once for 1 Occurrences starting 12/13/19 until 12/13/2021 Respiratory care evaluation only Respiratory care evaluation only Respiratory Care Routine As Needed until discontinued starting 06/19/2022 [employer] Phone: Comment on above: As Needed until discontinued starting Surgical Pathology Surgical Path ology Lab Routine Release Upon Ordering for 1 Occurrences starting 01/26/2022 [employer] Phone: Comment on above: Release Upon Ordering for 1 Occurrences starting 01/26/2022 End: 01-10-2022 Urinalysis Urinalysis Lab Routine One Time for 1 Occurrences starting 01/10/2022 until 01/10/2022 [employer] Phone: Comment on above: One Time for 1 Occurrences starting 12/2021 until 01/10/2022 [facility] End: 12-21-2021 VANCOMYCIN, RANDOM VANCOMYCIN, RANDOM Lab Routine One Time for 1 Occurrences starting 12/21/2021 until 12/21/2021 [employer] Phone: Comment on above: One Time for 1 Occurrences starting 12/12 until 12/21/2021 End: 05-06-2022 Wound Culture Wound Culture Microbiology Routine One Time for 1 Occurrences starting 05/06/2022 until 05/06/2022 [employer] Phone: Comment on above: One Time for 1 Occurrences starting 04/12 until 05/06/2022 End: 05-06-2022 Wound Gram stain Wound Gram stain Microbiology Routine One Time for 1 Occurrences starting 05/06/2022 until 05/06/2022 [employer] Phone: Comment on above: One Time for 1 Occurrences starting 04/12 until 05/06/2022 [facility] Payers Date Payer Category Payer Self-pay [id number] 2022 Unknown [id number] 2021 Medicaid (Managed Care) SAMMI BRUNSON [id number] 1982 Unknown [id number] 1982 Unknown [id number]. 173 1982 Unknown [id number]. 173 1982 Unknown [id number]. 173 1982 Unknown [id number] 2.16.840.1.499257.3.579.2. 173 1982 Unknown [id number] 2.16.840.1.209694.3.579.2. 173 1982 Unknown [id number] [id number]. 173 1982 Unknown [id number] [id number]. 175 1982 Unknown [id number] 2.16.840.1.779116.3.579.2. 177 1982 Unknown [id number] 2.16.840.1.651961.3.579.2. 177 1982 Unknown [id number] [id number]. 1259 1959 Medicaid [id number] Unknown [id number]. 531 Social History Date Type Detail Facility Start: 12-16-2020 End: 09-05-2022 Tobacco smoking status NHIS Former smoker [place] Start: 12-16-2020 End: 09-05-2022 Tobacco use and exposure Never used [place] Start: 12-16-2020 End: 01-30-2024 Alcohol intake Current non-drinker of alcohol (finding) [place] Start: 1980 Sex Assigned At Not on file [place] Start: 12-21-2021 End: 06-15-2022 Exposure to SARS-CoV-2 (event) Not sure [place] History of tobacco use Current smoker [facility] Work Phone: Start: 11-12-2023 End: 07-29-2025 History of Social function [facility] Start: 11-12-2023 End: 07-29-2025 Tobacco use panel [facility] Start: 07-15-2025 Tobacco smoking stat us NHIS Unknown if ever smoked [facility] Sex Male (finding) [facility] Start: 1980 Sex Assigned At Male [facility] Start: 07-29-2025 [facility] Start: 07-29-2025 Tobacco use and exposure User of smokeless tobacco [facility] Start: 07-29-2025 Alcoholic beverage intake Lifetime non-drinker (finding) [facility] Healthcare Goals Date Patient Goal Desired Activity /State Clinical Notes 05-29-2021 to 07-29-2025 iHlton Boyd MD - 07/29/2025 1:00 PM EDT Note Date & Type Note Facility 07-29-2025 History of Presen t illness Narrative Tip Wright is a 45 y.o. 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 Brody Mccormack for abnormal thyroid function tests. He has experienced mildly elevated T4 levels on two occasions, specifically in June 2025. His symptoms are mixed, including fatigue, tiredness, and an inability to gain weight. He has a history of hepatitis C, with plans to retreat it. Results Laboratory Studies T4 was mildly high on 2 occasions, 06/2025 13.3 ( 4.5 to 12.1). Free T3 within normal limit, 3.08 (2.18 to 3.98). TPO +37 (0 to 34). TG antibody less than one. TSH 1.531. SUBJECTIVE: MEDICATIONS: Current Outpatient Medications Medication Instructions Buprenorphine HCl-Naloxone HCl (Suboxone) 8-2 MG SL film 1 Film, Sublingual, Daily ALLERGIES: Allergies Allergen Reactions Penicillins Anaphylaxis Vancomycin Dermatitis No past medical history on file. No past surgical history on file. REVIEW OF SYMPTOMS: 14 POINT OF SYSTEM REVIEWED AND NEGATIVE OBJECTIVE: 07/29/2025 12:58 PM Vitals BMI 22.9 kg/m2 BSA (m2) 2.01 m2 Heart Rate 85 SpO2 97 % Resp 16 Height (in) 6' 1 Weight (lb) 173.6 Visit Report Report Physical Exam Constitutional: Appearance: Normal appearance. He is normal weight. HENT: Head: Normocephalic and atraumatic. Right Ear: External ear normal. Nose: Nose normal. Mouth/Throat: Pharynx: Oropharynx is clear. Eyes: Extraocular Movements: Extraocular movements intact. Pupils: Pupils are equal, round, and reactive to light. Cardiovascular: Rate and Rhythm: Normal rate and regular rhythm. Pulmonary: Effort: Pulmonary effort is normal. Abdominal: General: Abdomen is flat. Palpations: Abdomen is soft. Musculoskeletal: General: Normal range of motion. Skin: General: Skin is warm. Neurological: General: No focal deficit present. Mental Status: He is alert. Psychiatric: Mood and Affect: Mood normal. Behavior: Behavior normal. ASSESSMENT AND PLAN: Assessment/Plan Diagnoses and all orders for this visit: Anti-TPO antibodies present - T3, free; Future - T4, free; Future - TSH; Future - T4; Future Abnormal thyroid function test - T3, free; Future - T4, free; Future - TSH; Future - T4; Future Assessment & Plan 1. Abnormal thyroid function test: - Mildly elevated T4 levels and positive TPO, yet clinically euthyroid. Symptoms include fatigue and inability to gain weight. - No thyroid medication is necessary at this time. A repeat thyroid function test will be conducted in 6 months to monitor any changes. 2. Hepatitis C: - History of hepatitis C. - Plans to retreat hepatitis C. Follow-up: Repeat thyroid function test in 6 months. Follow up in about 6 months (around 01/26/2026). documented in this encounter [facility] 07-15-2025 Evaluation note Diagnosis Onset Date Resolution Elevated liver enzymes acute Se ptember 2024 1:49pm History of hepatitis B acute Se pt2024 1:49pm History of hepatitis C acute Se pt2024 1:49pm History of intravenous drug use acute July 15 1:49pm Opioid use disorder in remission acute July 15 025 1:49pm [facility] Work Phone: 1(971) 699-214007-18-2025 NoteSUBJECTIVE Reason for Visit: Tip Ansari is a 45 y.o. year old male patient being seen for hospital follow-up. HPI: Tip Ansari is a 45 y.o. 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 Was admitted recently this month to [facility] for dizziness, elevated troponin, concern for endocarditis. [...] Saturation 04/16/2023 24 UIBC (more content not included)...[facility] 01-30-2024 Hospital Discharge instructions* Discharge Instructions* Falguni Wan APRN - CNP - 01/30/2024 6:12 PM EDT Call [phone] ([phone]) to establish care for follow up. You can also call [facility] Link at [phone] to establish care. * Attachments The following attachments cannot be sent through Care Everywhere. * Influ[facility] ([place]ian) [facility] of Present illness Narrative* Clement Granger RN - 06/21/2022 4:36 PM EDT Discharged via ambulation with headline writer to front door. Patient's aunt picking patient up. Patient left with belongings and dc instructions. Meds with patient at dc. * Clement Granger RN - 06/21/2022 4:11 PM EDT Patient up in room and in bed at intervals. States his aunt will pick him up. * Alberto Perez MD - 06/21/2022 11:24 AM EDT Images from the original note were not included. [facility] Office: [phone] Mikie Rodriguez DO, Theo Lerma DO, Stuart Natarajan DO, Harpal Trna DO, Prashanth Sadler MD, Deana Raza MD, Florencia Canela MD, Tess Ford MD, Leodan Mak MD, Marimar Ren MD, Kyle Broussard DO, Juan Driver MD, Sophia Agustin DO, Jodi Bain MD, Palomo Drummond MD, Johann Rodriguez DO, Elvia Torres MD, Alberto Perez MD, Yuliana Saenz MD, Fabricio Syed DO,Radha Avila MD, Lyle Woods MD, Teresa Quintero CNP, Leslie Rao CNP, Ro Bernard MANUSCRIPT EDITOR, Carter Charles, MANUSCRIPT EDITOR, Mckayla Bertrand, KOC, Eli Fu DNP, Keri Walker, MANUSCRIPT EDITOR, Sherrie Rea, MANUSCRIPT EDITOR, Deysi Pablo, MANUSCRIPT EDITOR, Shelli Menon, MANUSCRIPT EDITOR, Tika Tapia, MANUSCRIPT EDITOR, Cathleen Moran, BLOW UP OPERATOR, Razia Figueroa, DNP,Madalyn Julien, MANUSCRIPT EDITOR, Amie Richardson, MANUSCRIPT EDITOR, Mary Meléndez, MANUSCRIPT EDITOR [facility] IN-PATIENT SERVICE [facility] Progress Note 06/21/2022 11:24 AM Name: Tip Ansari Acct: [id number] Room: [address] [place] [address] Day: 6 Admit Date: 06/15/2022 4:29 PM [...] candidemia with C albicans 01/21/22 TV endocarditis TEE01/24/22 treated w fluconazole Septic pulm emboli from MRSA septicemia 12/13/21 allergy to vanco w recurrent serotonin syndrome.Was planned for a repeat CT chest 03/05 but went to residential due to a IVDU relapse 05/06/22 Review [...] drug use. Drugs: Cocaine, Opiates , Marijuana (Dixon), and Methamphetamines (Crystal Meth). Hereports that he does not drink alcohol. Family [...] Value Date/Time PHART 7.380 12/16/2020 09:20 AM GUW5DBF 44.5 12/16/2020 09:20 AM PO2ART 94.4 12/16/2020 09:20 AM IGV9VTH 25.7 12/16/2020 09:20 AM NBEA NOT REPORTED 12/16/2020 09:20 AM PBEA 0.3 12/16/2020 09:20 AM [id number] 97.1 12/16/2020 09:20 AM FIO2 28 12/16/2020 [...] to Nathaniel species without acute organ dysfunction ([facility]) 06/17/2022 Yes IVDU (intravenous drug user) 06/21/2022 Yes SIRS (systemic inflammatory response syndrome) ([facility]) 06/20/2022 Yes Acute septic pulmonary embolism without acute cor pulmonale ([facility]) 06/20/2022 Yes Elevated procalcitonin 06/20/2022 Yes CRP elevated 06/20/2022 Yes Septic embolism ([facility]) 06/17/2022 Yes Normocytic normochromic anemia 06/17/2022 Yes Subacute right-sided infective endocarditis 06/17/2022 Yes 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[facility]) 06/20/2022 Yes Plan: 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 Infectious disease following. Not candidate for valvular repair IVDA: pt without evidence of withdrawal, has been on suboxone in past, but this cannot be administered in current residential Normocytic normochromic anemia : monitor hgb, transfuse [...] surgery within the next several weeks -instructions andinformation and follow-up DC order in place, pt needs longterm information Cannot go to SNF as he does not qualify Alberto Perez MD 06/21/2022 11:24 AM * Solange James - 06/21/2022 11:15 AM EDT CLINICAL PHARMACY NOTE: MEDS TO BEDS Total # of Prescriptions Filled: 1 The following medications were delivered to the patient: fluconazole Additional Documentation: * Audra Astudillo RN - 06/20/2022 6:20 PM EDT Discharge instructions given to patient. Patient instructed to call outpatient pharmacy in AM to set up plan to get Diflucan. Patient agrees. Manager Managing attempted to contact outpatient pharmacy at 1800 but they were closed. * Alberto Perez MD - 06/20/2022 10:46 AM EDT Images from the original note were not included. [facility] Office: [phone] Mikie Rodriguez DO, Theo Lerma DO, Stuart Natarajan DO, Harpal Tran DO, Prashanth Sadler MD, Deana Raza MD, Florencia Canela MD, Tess Ford MD, Leodan Mak MD, Marimar Ren MD, Kyle Broussard DO, Juan Driver MD, Sophia Agustin DO, Jodi Bain MD, Palomo Drummond MD, Johann Rodriguez DO, Elvia Torres MD, Alberto Perez MD, Yuliana Saenz MD, Fabricio Syed DO,Radha Avila MD, Lyle Woods MD, Teresa Quintero, PABLO, Leslie Rao CNP, Ro Bernard CNP, Carter Charles CNP, Mckayla Bertrand PA-C, Eli Fu, FÉLIX, Keri Walker, MANUSCRIPT EDITOR, Sherrie Rea, MANUSCRIPT EDITOR, Deysi Pablo, MANUSCRIPT EDITOR, Shelli Menon, MANUSCRIPT EDITOR, Tika Tapia, MANUSCRIPT EDITOR, Cathleen Moran, CHANTALE, Razia Figueroa DNP,Madalyn Julien, PABLO, Amie Richardson, PABLO, Mary Meléndez, MANUSCRIPT EDITOR [facility] IN-PATIENT SERVICE [facility] Progress Note 06/20/2022 10:46 AM Name: Tip Ansari Acct: [id number] Room: [facility]/043-[facility] Day: 5 Admit Date: 06/15/2022 4:29 PM [...] candidemia with C albicans 01/21/22 TV endocarditis TEE01/24/22 treated w fluconazole Septic pulm emboli from MRSA septicemia 12/13/21 allergy to vanco w recurrent serotonin syndrome.Was planned for a repeat CT chest 03/05 but went to residential due to a IVDU relapse 05/06/22 Review [...] drug use. Drugs: Cocaine, Opiates , Marijuana (Dixon), and Methamphetamines (Crystal Meth). Hereports that he does not drink alcohol. Family [...] Value Date/Time PHART 7.380 12/16/2020 09:20 AM YJV6SIR 44.5 12/16/2020 09:20 AM PO2ART 94.4 12/16/2020 09:20 AM MFG6WXH 25.7 12/16/2020 09:20 AM NBEA NOT REPORTED 12/16/2020 09:20 AM PBEA 0.3 12/16/2020 09:20 AM [id number] 97.1 12/16/2020 09:20 AM FIO2 28 12/16/2020 [...] to Nathaniel species without acute organ dysfunction ([facility]) 06/17/2022 Yes IVDU (intravenous drug user) 06/20/2022 Yes SIRS (systemic inflammatory response syndrome) (HCC) 06/20/2022 Yes Acute septic pulmonary embolism without acute cor pulmonale ([facility]) 06/20/2022 Yes Elevated procalcitonin 06/20/2022 Yes CRP [...] but this cannot be administered in current residential Normocytic normochromic anemia : monitor hgb, transfuse [...] surgery within the next several weeks -instructions andinformation and follow-up Alberto Perez MD 06/20/2022 10:46 AM * Criselda Rodriguez OT - 06/20/2022 10:46 AM EDT Images from the original note were not included. [facility] Occupational Therapy Not Seen Note DATE: 06/20/2022 NAME: Tip Ansari : 1980 Patient not seen this date for Occupational Therapy due to: Patient Declined: Patient reports too tired and has not been able to get any sleep and is not doing therapy right now . Next Scheduled Treatment: Ck 06/21 * Marisol Andrea MD - 06/20/2022 7:53 AM EDT Images from the original note were not included. [facility] - Infectious diseases evaluation Progress Note admission date 06/15/2022 reason for consultation: sepsis Impression : Current: Bilat septic pulm emboli Occasional hemoptysis Endocarditis TV, vegetation larger CRP procal elevation Chills and fever in residential Relapsed drug use SIRS + tachycardia and [...] repeat CT chest 03/05 but went to residential Allergy to PNC as a child, but [...] Unclear if he ll go back to residential or will be released Infection Control Recommendations [place] Precautions Contact Isolation Antimicrobial Stewardship Recommendations Simplification [...] repeat CT chest 03/05 but went to residential due to a IVDU relapse 05/06/22 Called from residential 06/15 for chills headaches getting worse and some LGF - sent to [facility] and seen now in ER [...] stenosis at C6-C7, on the left-hand side... left- sided degenerative neural foraminal stenosis L3-L4. -06/16/2022 aspirated sputum growing mixed bacterial morphotypes on gram stain. - Culture showed normal respiratory christopher - No intervention planned form CTS team at this time Notable ID-related inpatient events: Transthoracic echo 06/16-positive for tricuspid valve vegetations-it was present in previous echo on 02/14/22-size has increased Procalcitonin 0.2, WBC 8.9, ESR and CRP raised Blood and urine culture are still negative -06/16/2022 aspirated sputum growing mixed bacterial morphotypes on gram stain. - Culture showed normal respiratory christopher Summary of relevant labs: Labs: W10- 8.9 Creat normal LFT normal CRP-16.4 ESR-35 Pro calcitonin -0.2 Micro: BC 06/15-negative BC 06/13-negative Urine culture 06/16 - negative -06/16/2022 aspirated sputum growing mixed bacterial morphotypes on gram stain. - Culture showed normal respiratory christopher Imaging: Transthoracic echo [...] CALCANEOUS performed by Tip Grewal DPM at [facility] OR FOOT SURGERY Left 01/26/2022 INCISION [...] use: Yes Types: Cocaine, Opiates , Marijuana (Dixon), Methamphetamines (Crystal Meth) Comment: last use 05/05 [...] Saenz MD PGY-1, Department of Internal Medicine [facility], [place], [place] I have discussed the care of the patient, including pertinent history and exam findings, with the resident. I have seen and examined the patient and the hall elements of all parts of the encounter have been performed by me. I agree with the assessment, plan and orders as documented by the resident. Marisol Andrae, Infectious Diseases * Alberto Perez MD - 06/19/2022 1:10 PM EDT Images from the original note were not included. [facility] Office: [phone] Mikie Rodriguez DO, Theo Lerma DO, Stuart Natarajan DO, Harpal Tran DO, Prashanth Sadler MD, Deana Raza MD, Florencia Canela MD, Tess Ford MD, Leodan Mak MD, Marimar Ren MD, Kyle Broussard DO, Juan Driver MD, Sophia Agustin DO, Jodi Bain MD, Palomo Drummond MD, Johann Rodriguez DO, Elvia Torres MD, Alberto Perez MD, Yuliana Saenz MD, Fabricio Syed DO,Radha Avila MD, Lyle Woods MD, Teresa Quintero, MANUSCRIPT EDITOR, Leslie Rao, MANUSCRIPT EDITOR, Ro Bernard, MANUSCRIPT EDITOR, Carter Charles, MANUSCRIPT EDITOR, KO HunterC, Eli Fu, DNP, Keri Walker, MANUSCRIPT EDITOR, Sherrie Rea, MANUSCRIPT EDITOR, Deysi Pablo, MANUSCRIPT EDITOR, Shelli Menon, MANUSCRIPT EDITOR, Tika Tapia, MANUSCRIPT EDITOR, Cathleen Moran, BLOW UP OPERATOR, Razia Figueroa, DNP,Madalyn Julien, MANUSCRIPT EDITOR, Amie Richardson, MANUSCRIPT EDITOR, Mary Meléndez, MANUSCRIPT EDITOR [facility] IN-PATIENT SERVICE [facility] Progress Note 06/19/2022 1:11 PM Name: Tip Ansari Acct: [id number] Room: [address] [place], [place] [address]-[facility] Day: 4 Admit Date: 06/15/2022 4:29 PM [...] candidemia with C albicans 01/21/22 TV endocarditis TEE01/24/22 treated w fluconazole Septic pulm emboli from MRSA septicemia 12/13/21 allergy to vanco w recurrent serotonin syndrome.Was planned for a repeat CT chest 03/05 but went to residential due to a IVDU relapse 05/06/22 Review [...] drug use. Drugs: Cocaine, Opiates , Marijuana (Dixon), and Methamphetamines (Crystal Meth). Hereports that he does not drink alcohol. Family History: Family History Problem Relation Age of Onset Cancer Mother skin No Known Problems Father Diabetes Maternal Grandmother Diabetes Maternal Grandfather Vitals: BP 112/70 Pulse 83 Temp 97.6 F (36.4 C) (Temporal) Resp 19 Ht 6' 1 (1.854 m) Wt 189 lb 6oz (85.9 kg) SpO2 93% BMI 24.99 kg/m [...] RDW, PLT, MPV, SEDRATE, CRP, INR, DDIMER, LY0WVVZK, LABABSO in the last 72 hours. Invalid [...] Value Date/Time PHART 7.380 12/16/2020 09:20 AM WKJ6IBF 44.5 12/16/2020 09:20 AM PO2ART 94.4 12/16/2020 09:20 AM OHH4WMF 25.7 12/16/2020 09:20 AM NBEA NOT REPORTED 12/16/2020 09:20 AM PBEA 0.3 12/16/2020 09:20 AM [id number] 97.1 12/16/2020 09:20 AM FIO2 28 12/16/2020 [...] to Nathaniel species without acute organ dysfunction ([facility]) 06/17/2022 Yes IV drug abuse (HCC) 06/17/2022 Yes Septic embolism ([facility]) 06/17/2022 Yes Normocytic normochromic anemia 06/17/2022 Yes Subacute right-sided infective endocarditis 06/17/2022 Yes Plan: 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 Infectious disease following. Not candidate for valvular repair IVDA: pt without evidence of withdrawal, has been on suboxone in past, but this cannot be administered in current residential Normocytic normochromic anemia : monitor hgb, transfuse as need for symptomatic anemia or hgb <7 COPD not in acute exacerbation : nebulizer prn PTOT Diet as tolerated Labs, imaging, ECG reviewed PTOT DC planning to follow - we need to figure out with CM where pt can go with IV abx - which will be coordinated with nurse @ [facility] - may need transfer to [facility] residential where IV abx can be administered Alberto Perez MD 06/19/2022 1:11 PM * Alexei Mendoza RPH - 06/19/2022 11:55 AM EDT [facility] Pharmacokinetic Monitoring Service - Vancomycin Consulting [...] consult, Alexei Mendoza RPH 06/19/2022 11:51 AM * Audra Astudillo RN - 06/19/2022 11:17 AM EDT Potassium 3.6. No orders to replace. Dr. Perez notified. * Marisol Andrea MD - 06/19/2022 9:41 AM EDT Images from the original note were not included. [facility] - Infectious diseases evaluation Progress Note admission date 06/15/2022 reason for consultation: sepsis Impression : Current: Bilat septic pulm emboli Occasional hemoptysis Endocarditis TV, vegetation larger CRP procal elevation Chills and fever in residential Relapsed drug use SIRS + tachycardia and [...] repeat CT chest 03/05 but went to residential Allergy to PNC as a child, but [...] Unear if he ll go back to residential or will be released Infection Control Recommendations [place] Precautions Contact Isolation Antimicrobial Stewardship Recommendations Simplification [...] repeat CT chest 03/05 but went to residential due to a IVDU relapse 05/06/22 Called from residential 06/15 for chills headaches getting worse and some LGF - sent to [facility] and seen now in ER [...] stenosis at C6-C7, on the left-hand side... left- sided degenerative neural foraminal stenosis L3-L4. -No new labs this morning -06/16/2022 aspirated sputum growing mixed bacterial morphotypes on gram stain. - Culture showed normal respiratory christopher -He is going [...] growing mixed bacterial morphotypes on gram stain. - Culture showed normal respiratory christopher Summary of relevant labs: Labs: W10 Creat normal LFT normal CRP-16.4 ESR-35 Pro calcitonin -0.2 Micro: BC 06/15-negative BC 06/13-negative Urine culture 06/16 - negative -06/16/2022 aspirated sputum growing mixed bacterial morphotypes on gram stain. - Culture showed normal respiratory christopher Imaging: Transthoracic echo [...] CALCANEOUS performed by Tip Grewal DPM at [facility] OR FOOT SURGERY Left 01/26/2022 INCISION [...] use: Yes Types: Cocaine, Opiates , Marijuana (Dixon), Methamphetamines (Crystal Meth) Comment: last use 05/05 [...] Saenz MD PGY-1, Department of Internal Medicine [facility], [place], [place] I have discussed the care of the patient, including pertinent history and exam findings, with the resident. I have seen and examined the patient and the hall elements of all parts of the encounter have been performed by me. I agree with the assessment, plan and orders as documented by the resident. Marisol Andrea, Infectious Diseases * Elvia Torres MD - 06/19/2022 2:38 AM EDT [facility] Office: [phone] Mikie Rodriguez DO, Theo Lerma DO, Stuart Natarajan DO, Harpal Tran DO, Prashanth Sadler MD, Deana Raza MD, Florencia Canela MD, Tess Ford MD, Leodan Mak MD, Marimar Ren MD, Kyle Broussard DO, Juan Driver MD, Sophia Agustin DO, Jodi Bain MD, Palomo Drummond MD, Johann Rodriguez DO, Elvia Torres MD, Alberto Perez MD, Yuliana Saenz MD, Fabricio Syed DO,Radha Avila MD, Lyle Woods MD, Teresa Quintero CNP, Leslie Rao CNP, Ro Bernard CNP, Carter Charles CNP, Mckayla Bertrand PA-C, Eli Fu DNP, Keri Walker, MANUSCRIPT EDITOR, Sherrie Rea, MANUSCRIPT EDITOR, Deysi Pablo MANUSCRIPT EDITOR, Shelli Menon, MANUSCRIPT EDITOR, Tika Tapia, MANUSCRIPT EDITOR, Cathleen Moran, BLOW UP OPERATOR, Razia Figueroa, DNP,Madalyn Julien, MANUSCRIPT EDITOR, Amie Richardson, PABLO, Mary Meléndez, MANUSCRIPT EDITOR [facility] Nighttime In-House Provider 06/19/2022 2:38 AM Name: Tip Ansari Acct: [id number] Room: [address] [place] [address] IP Day: 4 Admit Date: 06/15/2022 4:29 PM PCP: No primary care provider on file. Code Status: Full Code Called to the floor by staff to evaluate Tip Ansari in at 1am with complaint oftachypnea. Assessment/Plan: Tachypnea- continue to monitor TV endocarditis continue conservative rx per CT surgery. On abx per id H/o vancomycin allergy- tolerating vancomycin with benadryl D/w nsg. Additional medical information reviewed: Physical Examination: Physical Exam General sleeping comfortably Lungs nonlabored breathing, adeq a/e Cardio rrr Problem List: Hospital Problems Last Modified POA Sepsis due to Nathaniel species without acute organ dysfunction ([facility]) 06/17/2022 Yes IV drug abuse ([facility]) 06/17/2022 Yes Septic embolism ([facility]) 06/17/2022 Yes Normocytic normochromic anemia 06/17/2022 Yes [...] coma (HCC), COPD (chronic obstructive pulmonary disease) ([facility]), Depression, and Drug addiction ([facility]). Vitals: BP 114/82 Pulse 77 Temp 98.4 [...] at 06/19/2022 0238 Last data filed at 06/18/20226 Gross per 24 hour Intake 480 ml [...] atelectasis. Elvia Torres MD 06/19/2022 2:38 AM * Sophia Agustin DO - 06/18/2022 2:40 PM EDT Images from the original note were not included. [facility] Office: [phone] Mikie Rodriguez DO, Theo Lerma DO, Stuart Natarajan DO, Harpal Tran DO, Prashanth Sadler MD, Deana Raza MD, Florencia Canela MD, Tess Ford MD, Leodan Mak MD, Marimar Ren MD, Kyle Broussard DO, Juan Driver MD, Sophia Agustin DO, Jodi Bain MD, Palomo Drummond MD, Johann Rodriguez DO, Elvia Torres MD, Alberto Perez MD, Yuliana Saenz MD, Fbaricio Syed DO,Radha Avila MD, Lyle Woods MD, Teresa Quintero, MANUSCRIPT EDITOR, Leslie Rao, MANUSCRIPT EDITOR, Ro Bernard, MANUSCRIPT EDITOR, Carter Charles, MANUSCRIPT EDITOR, Mckayla Bertrand PA-C, Eli Fu DNP, Keri Walker, MANUSCRIPT EDITOR, Sherrie Rea, MANUSCRIPT EDITOR, Deysi Pablo, MANUSCRIPT EDITOR, Shelli Menon, MANUSCRIPT EDITOR, Tika Tapia, MANUSCRIPT EDITOR, Cathleen Moran, BLOW UP OPERATOR, Razia Figueroa DNP,Madalyn Julien MANUSCRIPT EDITOR, Amie Richardson, MANUSCRIPT EDITOR, Mray Meléndez, MANUSCRIPT EDITOR [facility] IN-PATIENT SERVICE [facility] Progress Note 06/18/2022 2:40 PM Name: Tip Ansari Acct: [id number] Room: [facility]0430-01 Day: 3 Admit Date: 06/15/2022 4:29 PM [...] candidemia with C albicans 01/21/22 TV endocarditis TEE01/24/22 treated w fluconazole Septic pulm emboli from MRSA septicemia 12/13/21 allergy to vanco w recurrent serotonin syndrome.Was planned for a repeat CT chest 03/05 but went to residential due to a IVDU relapse 05/06/22 Review [...] drug use. Drugs: Cocaine, Opiates , Marijuana (Dixon), and Methamphetamines (Crystal Meth). Hereports that he does not drink alcohol. Family [...] Value Date/Time PHART 7.380 12/16/2020 09:20 AM VIC6JAE 44.5 12/16/2020 09:20 AM PO2ART 94.4 12/16/2020 09:20 AM ZWI5RFH 25.7 12/16/2020 09:20 AM NBEA NOT REPORTED 12/16/2020 09:20 AM PBEA 0.3 12/16/2020 09:20 AM T7LZVASI 97.1 12/16/2020 09:20 AM FIO2 28 12/16/2020 [...] and IV vancomycin. Infectious disease following. Discussed casewith CTS . Will evaluate patient for valve replacement if not a candidate Vascular will consider perc removal of vegetation. IVDA: pt without evidence of withdrawal Normocytic normochromic anemia : monitor hgb, transfuse as need for symptomatic anemia or hgb <7 COPD not in acute exacerbation : nebulizer prn PTOT Diet as tolerated Labs, imaging, ECG reviewed PTOT Sophia Agustin DO 06/18/2022 2:40 PM * Mindy Parada [facility] - 06/18/2022 12:16 PM EDT [facility] Pharmacokinetic Monitoring Service - Vancomycin Tip [...] consult, Mindy Parada RPH 06/18/2022 12:13 PM * Marisol Andrea MD - 06/18/2022 9:34 AM EDT Images from the original note were not included. [facility] - Infectious diseases evaluation Progress Note admission date 06/15/2022 reason for consultation: sepsis Impression : Current: Bilat septic pulm emboli Occasional hemoptysis Endocarditis TV, vegetation larger CRP procal elevation Chills and fever in residential Relapsed drug use SIRS + tachycardia and [...] repeat CT chest 03/05 but went to residential Allergy to PNC as a child, but [...] evidence of infectious seeding. Infection Control Recommendations [place] Precautions Contact Isolation Antimicrobial Stewardship Recommendations Simplification [...] repeat CT chest 03/05 but went to residential due to a IVDU relapse 05/06/22 Called from residential 06/15 for chills headaches getting worse and some LGF - sent to [facility] and seen now in ER [...] discitis-osteomyelitis or epidural abscess... Degenerative neural foraminal stenosisat C6-C7, on the left-hand side... left- sided degenerative neural foraminal stenosis L3-L4. -No new labs this morning -06/16/2022 aspirated sputum growing mixed bacterial morphotypes on gram stain. - Culture showed normal respiratory christopher -He is going [...] growing mixed bacterial morphotypes on gram stain. - Culture showed normal respiratory chrsitopher Summary of relevant labs: Labs: W10 Creat [...] CALCANEOUS performed by Tip Grewal DPM at [facility] OR FOOT SURGERY Left 01/26/2022 INCISION [...] use: Yes Types: Cocaine, Opiates , Marijuana (Dixon), Methamphetamines (Crystal Meth) Comment: last use 05/05 [...] Saenz MD PGY-1, Department of Internal Medicine [facility], [place], [place] I have discussed the care of the patient, including pertinent history and exam findings, with the resident. I have seen and examined the patient and the hall elements of all parts of the encounter have been performed by me. I agree with the assessment, plan and orders as documented by the resident. Marisol Andrea, Infectious Diseases * Sophia Agustin DO - 06/17/2022 3:01 PM EDT Images from the original note were not included. [facility] Office: [phone] Mikie Rodriguez DO, Theo Lerma DO, Stuart Natarajan DO, Harpal Tran DO, Prashanth Sadler MD, Deana Raza MD, Florencia Canela MD, Tess Ford MD, Leodan Mak MD, Marimar Ren MD, Kyle Broussard DO, Juan Driver MD, Sophia Agustin DO, Jodi Bain MD, Palomo Drummond MD, Johann Rodriguez DO, Elvia Torres MD, Alberto Perez MD, Yuliana Saenz MD, Fabricio Syed DO,Radha Avila MD, Lyle Woods MD, Teresa Quintero CNP, Leslie Rao CNP, Ro Bernard CNP, Carter Charles, MANUSCRIPT EDITOR, Mckayla Bertrand PA-C, Eli Fu, DNP, Keri Walker, MANUSCRIPT EDITOR, Sherrie Rea, MANUSCRIPT EDITOR, Deysi Pablo MANUSCRIPT EDITOR, Shelli Menon MANUSCRIPT EDITOR, Tika Tapia, MANUSCRIPT EDITOR, Cathleen oMran, BLOW UP OPERATOR, Razia Figueroa, DNP,Madalyn Julien, MANUSCRIPT EDITOR, Amie Richardson, MANUSCRIPT EDITOR, Mary Meléndez, MANUSCRIPT EDITOR [facility] IN-PATIENT SERVICE [facility] Progress Note 06/17/2022 3:17 PM Name: Tip Ansari Acct: [id number] Room: [address] [place] [address] Day: 2 Admit Date: 06/15/2022 4:29 PM [...] candidemia with C albicans 01/21/22 TV endocarditis TEE01/24/22 treated w fluconazole Septic pulm emboli from MRSA septicemia 12/13/21 allergy to vanco w recurrent serotonin syndrome.Was planned for a repeat CT chest 03/05 but went to residential due to a IVDU relapse 05/06/22 Review [...] drug use. Drugs: Cocaine, Opiates , Marijuana (Dixon), and Methamphetamines (Crystal Meth). Hereports that he does not drink alcohol. Family [...] Value Date/Time PHART 7.380 12/16/2020 09:20 AM LCU5JUM 44.5 12/16/2020 09:20 AM PO2ART 94.4 12/16/2020 09:20 AM VPS7ELG 25.7 12/16/2020 09:20 AM NBEA NOT REPORTED 12/16/2020 09:20 AM PBEA 0.3 12/16/2020 09:20 AM [id number] 97.1 12/16/2020 09:20 AM FIO2 28 12/16/2020 [...] PTOT Sophia Agustin DO 06/17/2022 3:17 PM * Tariq Dumont MD - 06/17/2022 10:05 AM EDT Images from the original note were not included. [facility] - Infectious diseases evaluation Progress Note admission date 06/15/2022 reason for consultation: sepsis Impression : Current: Bilat septic pulm emboli Occasional hemoptysis Chills and fever in residential Relapsed drug use SIRS + tachycardia and [...] repeat CT chest 03/05 but went to residential Allergy to PNC as a child, but [...] evidence of infectious seeding. Infection Control Recommendations [place] Precautions Contact Isolation Antimicrobial Stewardship Recommendations Simplification [...] repeat CT chest 03/05 but went to residential due to a IVDU relapse 05/06/22 Called from residential 06/15 for chills headaches getting worse and some LGF - sent to [facility] and seen now in ER [...] discitis-osteomyelitis or epidural abscess... Degenerative neural foraminal stenosisat C6-C7, on the left-hand side... left- sided degenerative neural foraminal stenosis L3-L4. -No new [...] CALCANEOUS performed by Tip Grewal DPM at [facility] OR FOOT SURGERY Left 01/26/2022 INCISION [...] use: Yes Types: Cocaine, Opiates , Marijuana (Dixon), Methamphetamines (Crystal Meth) Comment: last use 05/05 [...] following labs: CBC with Differential: Recent Labs 06/15/221736 WBC 10.5 HGB 12.9* HCT 38.8* PLT [...] Guerrero MD PGY-3, Department of Internal Medicine [facility], [place], [place] Final assessment and plan pending discussion [...] by the resident/ student. Tariq Dumont MD. * Tariq Dumont MD - 06/16/2022 12:16 PM EDT Images from the original note were not included. [facility] - Infectious diseases evaluation Progress Note admission date 06/15/2022 reason for consultation: sepsis Impression : Current: Bilat septic pulm emboli Occasional hemoptysis Chills and fever in residential Relapsed drug use SIRS + tachycardia and clammy New LBP and neck pain Left calcaneal osteoarthritis Recently: Left calcaneal osteomyelitis, septic bursitis left heel w I/D 01/26/22, candidemia albicans 01/21/22 TV endocarditis GIANFRANCO 01/24/22 treated w fluconazole Septic pulm emboli from MRSA septicemia 12/13/21 allergy to vanco w recurrent serotonin syndrome. Was planned for a repeat CT chest 03/05 but went to residential Allergy to PNC as a child, but [...] a site of seeding Infection Control Recommendations [place] Precautions Contact Isolation Antimicrobial Stewardship Recommendations Simplification [...] repeat CT chest 03/05 but went to residential due to a IVDU relapse 05/06/22 Called from residential 06/15 for chills headaches getting worse and some LGF - sent to [facility] and seen now in ER [...] CALCANEOUS performed by Tip Grewal DPM at [facility] OR FOOT SURGERY Left 01/26/2022 INCISION [...] use: Yes Types: Cocaine, Opiates , Marijuana (Dixon), Methamphetamines (Crystal Meth) Comment: last use 05/05 [...] Saenz MD Office: [facility] / office [phone] ATTESTATION: I have discussed the case, including [...] by the resident/ student. Tariq Dumont MD. * Alicia Fam - 06/16/2022 11:32 AM EDT Cardiac Echo done in the Echo Lab documented in this encounterBON [facility] Work Phone: [phone]) 200-241806-28-2022 History of Present illness Narrative* Ana Tiwari RN - 05/08/2022 11:36 AM EDT Patient given discharge instructions and follow up appointments and cam boot instructions. Patient verbalized understanding. * Alberto Perez MD - 05/08/2022 10:05 AM EDT Images from the original note were not included. [facility] Office: [phone] Mikie Rodriguez DO, Theo Lerma DO, Stuart Natarajan DO, Harpal Tran DO, Prashanth Sadler MD, Deana Raza MD, Florencia Canela MD, Tess Ford MD, Yuliana Saenz MD, Leodan Mak MD, Marimar Ren MD, Kyle Broussard DO, Juan Driver MD, Sophia Agustin DO, Jodi Bain MD, Palomo Drummond MD, Johann Rodriguez DO, Elvia Torres MD, Alberto Perez MD, Fabricio Syed DO,Radha Avila MD, Lyle Woods MD, Teresa Quintero CNP, Tika Tapia CNP, Abdirahman Bella CNP, Leslie Rao CNP, Ro Bernard CNP, Carter Charles MANUSCRIPT EDITOR, Mckayla Bertrand, PA-C, Eli Fu, FÉLIX, Keri Walker, PABLO, Sherrie Rea, PABLO, Deysi Pablo CNP, Cathleen Moran, CHANTALE, Razia Figueroa, FÉLIX, Madalyn Julien, PABLO, Shelli Menon, PABLO, Amie Richardson, PABLO IN-PATIENT SERVICE [facility] Progress Note 05/08/2022 10:06 AM Name: Tip Ansari Acct: [id number] Room: [address] [place] [address] Day: 2 Admit Date: 05/06/2022 4:40 AM [...] months. He has difficulty walking, swelling, and pain.Heis feeling flushed and sweaty in addition to feeling cold. He is concerned that he is withdrawing. Last used yesterday. He typically injects heroine and fentanyl into his arm. He is also complaining of a runny nose. He has not noticed any discharge in his foot. The redness is unchanged for the lastfew months. Pt also had stiches placed by [...] inflammatory. Transfuse prn for symptomatic anemia or Hgb<7 7. PTOT 8. DVT ppx 9. Labs, [...] drug use. Drugs: Cocaine, Opiates , Marijuana (Dixon), and Methamphetamines (Crystal Meth). Hereports that he does not drink alcohol. Family [...] chloride flush, sodium chloride, potassium chloride OR potassiumalternative oral replacement OR potassium chloride, magnesium sulfate, [...] Results Component Value Date PHART 7.380 12/16/2020 EQX7VDE 44.5 12/16/2020 PO2ART 94.4 12/16/2020 [id number] 25.7 12/16/2020 NBEA NOT REPORTED 12/16/2020 PBEA 0.3 12/16/2020 [id number] 97.1 12/16/2020 FIO2 28 12/16/2020 Lab Results [...] IP CONSULT TO PODIATRY INPATIENT CONSULT TO ASSOCIATE PROFESSOR OF MEDICINE CHEMICAL DEPENDENCY REFERRAL FOR SOCIAL SERVICE CONSULT Alberto Perez MD 05/08/2022 10:06 AM * Theo Lerma DO - 05/07/2022 5:54 PM EDT Images from the original note were not included. [facility] Office: [phone] Mikie Rodriguez DO, Theo Lerma DO, Stuart Natarajan DO, Harpal Tran DO, Prashanth Sadler MD, Deana Raza MD, Florencia Canela MD, Tess Ford MD, Yuliana Saenz MD, Leodan Mak MD, Marimar Ren MD, Kyle Broussard DO, Juan Driver MD, Sophia Agustin DO, Jodi Bain MD, Palomo Drummond MD, Johann Rodriguez DO, Elvia Torres MD, Alberto Perez MD, Fabricio Syed DO,Radha Avila MD, Lyle Woods MD, Teresa Quintero CNP, Tika Tapia CNP, Abdirahman Bella CNP, Leslie Rao CNP, Ro Bernard CNP, Carter Charles, PABLO, KO HunterC, Eli Fu, DNP, Keri Walker, MANUSCRIPT EDITOR, Sherrie Rea, PABLO, Deysi Pablo, PABLO, Cathleen Moran, CHANTALE, Razia Figueroa, DNP, Madalyn Julien, MANUSCRIPT EDITOR, Shelli Menon, MANUSCRIPT EDITOR, Amie Richardson, MANUSCRIPT EDITOR IN-PATIENT SERVICE [facility] Progress Note 05/07/2022 6:09 PM Name: Tip Ansari Acct: [id number] Room: [facility] Day: 1 Admit Date: 05/06/2022 4:40 AM PCP: No primary care provider on file. Code Status: Full Code Subjective: C/C: Left ankle pain and swelling Interval History Status: Malaise Withdrawing Nausea Not eating well Sweats Data Base Updates: Dsktlco28in/dL SAW56jr/dL CREATININE0.62 Low mg/dL Calcium8.9mg/dL Cljwgi141ittz/L Potassium4.2 Brief History: As documented in the medical record: Tip Ansari is a 42 y.o. who presents to our hospital for swelling and redness in his ankle that has been getting worse for the last two months. He has difficulty walking, swelling, and pain.He is feeling flushed and sweaty in addition to feeling cold. He is concerned that he is withdrawing.Last used yesterday. He typically injects heroine and fentanyl into his arm. He is also complainingof a runny nose. He has not noticed [...] drug abuse (HCC) 05/06/2022 Yes Heroin abuse ([facility]) 05/06/2022 Yes Normocytic normochromic anemia 05/06/2022 Yes [...] inflammatory. Transfuse prn for symptomatic anemia or Hgb<7 7. PTOT 8. DVT ppx 9. Labs, [...] drug use. Drugs: Cocaine, Opiates , Marijuana (Dixon), and Methamphetamines (Crystal Meth). Hereports that he does not drink alcohol. Family [...] Net -124 ml Labs: Hematology: Recent Labs 05/05/22 2017 [...] >60 >60 CALCIUM 9.1 8.9 Recent Labs 05/05/22 2017 PROT 7.9 LABALBU 3.4* AST 15 ALT 17 ALKPHOS 82 BILITOT 0.53 ABG: Lab Results Component Value Date PHART 7.380 12/16/2020 HKS1TSB 44.5 12/16/2020 PO2ART 94.4 12/16/2020 XNY9ATN 25.7 12/16/2020 NBEA NOT REPORTED 12/16/2020 PBEA 0.3 12/16/2020 [id number] 97.1 12/16/2020 FIO2 28 12/16/2020 Lab Results [...] suggested DVT prophylaxis Patient to return to residential when stabilized IP CONSULT TO INFECTIOUS DISEASES IP CONSULT TO PODIATRY INPATIENT CONSULT TO ASSOCIATE PROFESSOR OF MEDICINE CHEMICAL DEPENDENCY REFERRAL FOR SOCIAL SERVICE CONSULT Theo Lerma DO 05/07/2022 6:09 PM * Tariq Dumont MD - 05/07/2022 4:15 PM EDT Images from the original note were not included. [facility] - Progress Note Today's Date and [...] in December 2021 with associated central cavitation ofthe embolic lesions History of allergy to vancomycin serotonin release syndrome History of anaphylaxis with penicillin History of hepatitis C History of heroin IV use Recommendations: D/C Tigecycline Monitor off antibiotics Office f/up in [address] Andrea for infection. 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 Also seen previously for Nathaniel fungemia and prior left calcaneal osteomyelitis. Patient apparently was sober for a period of time but has recently started using IV drugs again. Failed to follow-up with his warrant officer and the police brought him in to the [facility] ER. At that location the patient complained of redness, swelling and pain of the left ankle. He was transferred to [place] because of concerns with recurrence of one [...] in the retrocalcaneal bursa. Discussed with patient, RN, IM 05/06/2022 I have personally reviewed the past [...] CALCANEOUS performed by Tip Grewal DPM at [facility] OR FOOT SURGERY Left 01/26/2022 INCISION [...] use: Yes Types: Cocaine, Opiates , Marijuana (Dixon), Methamphetamines (Crystal Meth) Comment: last use 05/05 [...] Friends and Family: Not on file Attends Mu-Ism Services: Not on file Active Member of [...] excluded. No soft tissue gas. Medical Decision Zmzoou-Ztzcxfhh-Ibfaq: Medical Decision Making-Other: Note: Labs, medications, radiologic studies were reviewed with personal review of films Large amounts of data were reviewed Discussed with nursing Staff, brand planner Infection Control and Prevention measures reviewed All prior entries were reviewed Administer medications as ordered Prognosis: Fair Discharge planning reviewed Follow up as outpatient. Thank you for allowing us to participate in the care of this patient. Please call with questions. Tariq Dumont MD Pager: - Office: * Diane Cordova DPM - 05/07/2022 12:33 PM EDT Images from the original note were not included. Progress Note Podiatric Medicine and Surgery Subjective CC: left heel pain Patient seen and examined at bedside. No acute events overnight. Afebrile, vital signs stable Reports intermittent pain to left heel HPI : Tip Ansari is a 42 y.o. male seen at [facility] for left heel pain. Patient is [...] Piggyback:421] Out: 1200 [Urine:1200] CBC: Recent Labs 05/05/22 2017 05/06/22 1859 WBC 13.5* -- HGB 10.6* -- HCT 33.7* -- PLT 196 -- CRP -- 36.1* BMP: Recent Labs 05/05/22201605/07/22 0708 NA 134* 137 K 3.6* 4.2 CL 100 105 CO2 25 21 BUN 7 16 CREATININE 0.72 0.62* GLUCOSE 111* 87 CALCIUM 9.1 8.9 Coags: Recent Labs 05/05/22 2017 PROT 7.9 Lab Results Component Value Date SEDRATE 55 (H) 05/06/2022 Recent Labs 05/06/22 1859 CRP 36.1* Lower Extremity Physical Exam: Vascular: DP and PT pulses are palpable. CFT <4 seconds to all digits. Hair growth is wnl to thelevel of the digits. Mild nonpitting edema localized [...] partial tear of Achilles tendon, no acute osseousabnormalities or soft tissue gas. No acute surgical [...] 05/07/2022 at 12:34 PM documented [facility] Clicknation Phone: 1(888) 723-932406-27-2022 Hospital Discharge instructions* Discharge Instr - Activity* Jason Sunshine RN - 05/07/2022 4:29 PM EDT As to * Discharge Instr - Diet* Jason Sunshine RN - 05/07/2022 4:29 PM [...] most local grocery stores, pharmacies, and chain super-stores. If you have any questions about your diet or nutrition, call the hospital and ask for the dietitian. regular * Discharge Instr - CARLINE* Dinae Cordova DPM - 05/08/2022 11:19 AM EDT [...] Information Primary Emergency Contact: Alisa Ansari Address: [place] [id number] Relation: Parent Secondary Emergency Contact: jaida greenberg Mobile Relation: Aunt/Uncle Past Surgical History: Past Surgical History: Procedure Laterality Date ABSCESS DRAINAGE Left 2019 arm APPENDECTOMY FINGER SURGERY Right 5 th finger tendon repair FOOT DEBRIDEMENT Left 01/26/2022 INCISION AND DRAINAGE, BONE LEFT CALCANEOUS performed by Tip Grewal DPM at [facility] OR FOOT SURGERY Left 01/26/2022 INCISION AND DRAINAGE, BONE LEFT CALCANEOUS (Left Foot) PICC INSERTION VASCULAR ACCESS TEAM 01/25/2022 TYMPANOSTOMY TUBE PLACEMENT Bilateral Immunization History: There is no immunization history on file for this patient. Active Problems: Patient Active Problem List Diagnosis Code Septic embolism ([facility]) I76 Heroin abuse ([facility]) F11.10 Hepatitis C virus infection without hepatic coma B19.20 MRSA bacteremia R78.81, B95.62 Acute respiratory failure with hypoxia ([facility]) J96.01 Moderate protein-calorie malnutrition ([facility]) E44.0 Bloody diarrhea R19.7 Normocytic normochromic anemia D64.9 Acute hypokalemia E87.6 Right-sided endocarditis due to Staphylococcus aureus I33.0, 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[facility]) M00.061 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 Moderate tricuspid regurgitation I07.1 Hyperkalemia E87.5 Endocarditis I38 Sepsis ([facility]) A41.9 Staphylococcal arthritis of left ankle ([facility]) M00.072 Hyperglycemia R73.9 Sepsis due to Nathaniel species without acute organ dysfunction ([facility]) B37.7, R65.20 Sinus tachycardia R00.0 Septic bursitis of Achilles M71.10 Acute osteomyelitis of left calcaneus ([facility]) M86.172 Opiate withdrawal ([facility]) F11.23 Acute hematogenous osteomyelitis of left ankle ([facility]) M86.072 Cellulitis of left lower extremity L03.116 IV drug abuse ([facility]) F19.10 Tenosynovitis of left ankle M65.9 Achilles [...] C) (Oral) Resp 16 Ht 6' 1 (1.854m) Wt 162 lb 9.6 oz (73.8 kg) SpO2 99% BMI 21.45 kg/m Last documented pain score (0-10 scale): Pain Level: 7 Last Weight: Wt Readings from Last 1 Encounters: 05/07/22 162 lb 9.6 oz (73.8 kg) Mental Status: {IP PT MENTAL STATUS:95119} IV Access: {[facility] IV ACCESS:809204822} Nursing Mobility/ADLs: Walking {[facility]P DME ADLs:530769047} Transfer {CHP DME ADLs:553517852} Bathing {CHP DME ADLs:214271498} Dressing {CHP DME ADLs:267311045} Toileting {CHP DME ADLs:998490331} Feeding {CHP DME ADLs:059709008} Wood Technologist {[facility] DME ADLs:138231020} Med Delivery { [facility] MED Delivery:345543656} Wound Care Documentation and Therapy: Wound 01/20/22 Ankle Left;Posterior (Active) Number of days: 107 Incision 01/26/22 Tibial Distal;Left;Posterior (Active) Number of days: 101 Elimination: Continence: Bowel: {YES / NO:} Bladder: {YES / NO:} Urinary Catheter: {Urinary Catheter:477063631} Colostomy/Ileostomy/Ileal Conduit: {YES / NO:} Date of Last BM: Intake/Output Summary (Last 24 hours) at 05/08/2022 1118 Last data filed at 05/08/2022 0730 Gross per 24 hour Intake -- Output 1600 ml Net -1600 ml I/O last 3 completed shifts: In: 1076 [P.O.:620; I.V.:35; IV Piggyback:421] Out: 2400 [Urine:2400] Safety Concerns: { CARLINE Safety Concerns:325370545} Impairments/Disabilities: { CARLINE Impairments/Disabilities:935590789} Nutrition Therapy: Current Nutrition Therapy: { [facility] Diet List:076909945} Routes of Feeding: {[facility] Other Feedings:559507078} Liquids: {[facility] liquid thickness:54643} Daily Fluid Restriction: {[facility] DME Yes amt example:522619936} Last Modified Barium Swallow with Video (Video Swallowing Test): {Done Not Done Date:} Treatments at the Time of Hospital Discharge: Respiratory Treatments: Oxygen Therapy: {Therapy; copd oxygen:50325} Ventilator: { CC Vent List:745205992} Rehab Therapies: {THERAPEUTIC INTERVENTION:8214401600} Weight Bearing Status/Restrictions: {[facility] Weight Bearin} Other Medical Equipment (for information only, NOT a DME order): {EQUIPMENT:703121640} Other Treatments: Patient's personal belongings (please select all that are sent with patient): {[facility] DME Belongings:530857592} RN SIGNATURE: {Esignature:434718568} CASE MANAGEMENT/SOCIAL WORK SECTION Inpatient Status Date: Readmission Risk Assessment Score: Readmission Risk Risk of Unplanned Readmission: 20 Discharging to Facility/ Agency Name: Address: Phone: Fax: Dialysis Facility (if applicable) Name: Address: Dialysis Schedule: Phone: Fax: Filter Tank Tender Helper/Jalousies Installer signature: {Esignature:806459424} PHYSICIAN SECTION Prognosis: {Prognosis:0053178335} Condition at Discharge: {MH Patient Condition:392322406} Rehab Potential (if transferring to Rehab): {Prognosis:6427860531} Recommended Labs or Other Treatments After Discharge: Partial weightbearing in CAM walker to left leg Physician Certification: I certify the above information and transfer of Tip Ansari is necessary for the continuing treatment of the diagnosis listed and that he requires {Admit to AppropriateLevel of Care:72985} for {GREATER/LESS:912681608} 30 days. Update Admission H&P: {CHP DME Changes in HandP:624982267} PHYSICIAN SIGNATURE: {Esignature:983171734} * Additional Instructions* Diane Cordova DPM - 05/08/2022 Partial weight bearing to left foot, Wear cam boot to left foot while out of bed. documented [facility] Insportant Work Phone: 1(295) 202-327703-22-2022 History of Present illness Narrative* Elvin Ricketts RN - 01/30/2022 4:30 PM EDT Pt being discharged home with friend. Pt stated he called his dental officer to inform them of discharge. Discharge instructions reviewed. Meds delivered via meds to bed. All belongings accounted for. All questions answered. * Erin Rodrigues PTA - 01/30/2022 1:49 PM EDT Physical Therapy Facility/Department: [facility] CAR 2 Daily Treatment Note NAME: [...] Long Arc Quads, hip abduction/adduction, heel/toe raises, andmarches. Reps:15 AM-PAC Score AM-[facility] Inpatient Mobility Raw Score : 21 [...] Treatment Minutes: 40 Minutes Erin Rodrigues PTA * Kyle Broussard DO - 01/30/2022 1:39 PM EDT Images from the original note were not included. [facility] Office: [phone] Mikie Rodriguez DO, Theo Lerma DO, Stuart Natarajan DO, Harpal Tran DO, Prashanth Sadler MD, Deana Raza MD, Florencia Canela MD, Tess Ford MD, Yuliana Saenz MD, Leodan Mak MD, Marimar Ren MD, Fabricio Syed DO, Kyle Broussard DO, Juan Driver MD, Sophia Agustin DO, MD Melony, Jodi Bain MD, Palomo Drummond MD, Johann Rodriguez DO, Radha Avila MD, Alberto Perze MD, Teresa Quintero, MANUSCRIPT EDITOR, Tika Tapia, MANUSCRIPT EDITOR, Mary Meléndez, MANUSCRIPT EDITOR, Cathleen Moran, [facility], Abdirahman Bella, MANUSCRIPT EDITOR, Leslie Rao, MANUSCRIPT EDITOR, Madalyn Julien, MANUSCRIPT EDITOR, Ro Bernard, MANUSCRIPT EDITOR, Carter Charles, MANUSCRIPT EDITOR, Mckayla Bertrand PA-C, Eli Fu, DNP, Razia Figueroa, DNP, Keri Walker, MANUSCRIPT EDITOR, Sherrie Rea, MANUSCRIPT EDITOR, Moon Waldrop, MANUSCRIPT EDITOR, Ethel Soto, MANUSCRIPT EDITOR, Jazzy Javier, MANUSCRIPT EDITOR, Shelli Menon, MANUSCRIPT EDITOR [facility] IN-PATIENT SERVICE [facility] Progress Note 01/30/2022 1:39 PM Name: Tip Ansari Acct: [id number] Room: IP Day: 10 Admit Date: 01/20/2022 10:23 PM PCP: No primary care provider on file. Code Status: Full Code Subjective: C/C: rigors Interval History Status: not changed. Patient seen and examined, status post I&D of foot, okay for discharge by infectious disease. All the services have signed off. Patient still complaining of occasional night sweats and cough withcongestion but feels better today. Brief History: Mr. Tip Ansari is a 42 year old gentleman who initially presented to [facility] ED from the local residential after he developed acute onset chills and shaking. He noted a wound to his left foot as well. Onset was abrupt, as he felt well earlier in the day. Patient was previously at [facility] in December for MRSA bacteremia with tricuspid valve vegetation. Hewas discharged on dalbavancin weekly x2 weeks in the infusion center with planned follow up CT and echocardiogram. In addition he was found to have septic arthritis of the right knee and left wrist (also positive for MRSA). In addition patient was found to be stool occult blood positive and lateralmultifocal scattered nodular opacities in lung with cavitation which was presumed to be septic emboli. The occult blood resolved itself after being placed on vancomycin and patient was discharged back to residential CT imaging in the ER revealed no evidence for PE, but with scattered airspace opacities are presentthroughout the lungs bilaterally to a mild degree, overall improved from prior, possibly representing residual pneumonia. Podiatry and ID have evaluated the patient. He is growing nathaniel in his blood and is on IV diflucan. -GIANFRANCO performed on 01/24 -MRI reveals osteomyelitis of the calcaneus with moderate amount of fluid within the retrocalcanealbursa demonstrated pronounced peripheral enhancement suggesting septic bursitis with involvement ofthe distal Achilles tendon. -Underwent I&D with podiatry [...] glucagon (rDNA), dextrose, melatonin, hydrOXYzine, potassium chloride ORpotassium alternative oral replacement OR potassium chloride, magnesium [...] drug use. Drugs: Cocaine, Opiates , Marijuana (Dixon), and Methamphetamines (Crystal Meth). Hereports that he does not drink alcohol. Family History: Family History Problem Relation Age of Onset Cancer Mother skin No Known Problems Father Diabetes Maternal Grandmother Diabetes Maternal Grandfather Vitals: BP (!) 142/94 Pulse 100 Temp 98.2 F (36.8 C) (Oral) Resp 21 Ht 6' (1.829 m) Wt 174 lb 9.7oz (79.2 kg) SpO2 94% BMI 23.68 kg/m [...] Results Component Value Date PHART 7.380 12/16/2020 OYH5KPB 44.5 12/16/2020 PO2ART 94.4 12/16/2020 XWR6HHN 25.7 12/16/2020 NBEA NOT REPORTED 12/16/2020 PBEA 0.3 12/16/2020 V4FHFEZZ 97.1 12/16/2020 FIO2 28 12/16/2020 Lab Results [...] Opiate withdrawal (HCC) 01/28/2022 No Heroin abuse ([facility]) 01/23/2022 Yes Hepatitis C virus infection without hepatic coma 01/23/2022 Yes Endocarditis of tricuspid valve 01/23/2022 Yes Moderate tricuspid regurgitation 01/23/2022 Yes Hyperglycemia 01/23/2022 Yes Acute osteomyelitis of left calcaneus (HCC) 01/28/2022 Yes Acute hematogenous osteomyelitis of left ankle ([facility]) 01/29/2022 Yes Plan: 1. Sepsis likely due [...] today Kyle Broussard DO 01/30/2022 1:39 PM * Tip Grewal DPM - 01/30/2022 12:58 PM EDT Physician Progress Note PATIENT: TIP ANSARI [facility] #: [id number] : 1980 ADMIT DATE: 01/20/2022 10:23 PM [...] intact anterior talofibular ligament. Treatment: I&D, Consult Podiatry/ID/Cardiology/Opthamology/Cardiothoracic surgery, labs, monitor, XR Left Calcaneous, MRI [...] by: TIP GREWAL DPM 01/30/2022 12:57 PM * Marisol Andrea MD - 01/30/2022 9:30 AM EDT Images from the original note were not included. [facility] - Infectious diseases evaluation admission date 01/20/2022 reason for consultation: Sepsis Vanco allergy Impression : Current: Vancomycin reaction- Tachycardia fever red neck syndrome in [place] Pulmonary septic emboli, MRSA -residual lesions remain [...] and right shoulder. [Shoulder was a joint thatwas back Heroin use, hepatitis C Other: Patient did have a red neck syndrome infection with fever in [place] and again here Label allergic to vanco [...] Chart reconsiled for DC Infection Control Recommendations Talihina Precautions Contact Isolation Antimicrobial Stewardship Recommendations Simplification of therapy IV to oral conversion Coordination ofOutpatient Care: Estimated Length of IV antimicrobials: Patient will need Midline / picc Catheter Insertion: Patient will need SNF: Patient will need outpatient wound care: History of Present Illness: Initial history: Tip Ansari is a 42 y.o.-year-old male sent to patient from residential because of rigors and fever as well as the left foot wound that seems to have started suddenly in residential Recently seen 12/2021 by [facility] for MRSA bacteremia, right knee septic [...] infusion site redness as well as redness overthe neck and face fever hotness tachycardia, most [...] to severe pain in spine while infusing - worse than a sciatica Resolved after infusion stopped [...] Acid, Whole Blood3.3 High Sed Rate58 High Zarcgmpbtkrcf39.47 High Micro: BC One f two, 01/21 [...] CALCANEOUS performed by Tip Grewal DPM at [facility] OR FOOT SURGERY Left 01/26/2022 INCISION [...] use: Yes Types: Cocaine, Opiates , Marijuana (Dixon), Methamphetamines (Crystal Meth) Comment: quit heroin Nov [...] Friends and Family: Not on file Attends Mu-Ism Services: Not on file Active Member of [...] Andrea MD Office: Perfect serve / office [phone] * Erin Rodrigues PTA - 01/29/2022 1:37 PM EDT Images from the original note were not included. Physical Therapy Physical Therapy Cancel Note DATE: 01/29/2022 NAME: Tip Ansari : 1980 Patient not seen this date for Physical Therapy due to: Patient Declined: Stated he is getting around ok today, therapist educated pt on benefit of PT in hospital setting, PT will resume 01/30/22 * Fabricio Syed DO - 01/29/2022 1:33 PM EDT Images from the original note were not included. [facility] Office: [phone] Mikie Rodriguez DO, Theo Lerma DO, Stuart Natarajan DO, Harpal Tran DO, Prashanth Sadler MD, Deana Raza MD, Florencia Canela MD, Tess Ford MD, Yuliana Saenz MD, Leodan Mak MD, Marimar Ren MD, Fabricio Syed DO, Kyle Broussard DO, Juan Driver MD, Sophia Agustin DO, MD Melony, Jodi Bain MD, Palomo Drummond MD, Johann Rodriguez DO, Radha Avila MD, Alberto Perez MD, Teresa Quintero, MANUSCRIPT EDITOR, Tika Tapia, MANUSCRIPT EDITOR, Mary Meléndez, MANUSCRIPT EDITOR, Cathleen Moran, BLOW UP OPERATOR, Abdirahman Bella, MANUSCRIPT EDITOR, Leslie Rao, MANUSCRIPT EDITOR, Madalyn Julien, MANUSCRIPT EDITOR, Ro Bernard, MANUSCRIPT EDITOR, Carter Charles, MANUSCRIPT EDITOR, Mckayla Bertrand PA-C, Eli Fu, DNP, Razia Figueroa, DNP, Keri Walker, MANUSCRIPT EDITOR, Sherrie Rea, MANUSCRIPT EDITOR, Moon Waldrop, MANUSCRIPT EDITOR, Ethel Soto, MANUSCRIPT EDITOR, Jazzy Javier, MANUSCRIPT EDITOR, Shelli Menon, MANUSCRIPT EDITOR [facility] IN-PATIENT SERVICE [facility] Progress Note 01/29/2022 1:33 PM Name: Tip Ansari Acct: [id number] Room: IP Day: 9 Admit Date: 01/20/2022 10:23 PM PCP: No primary care provider on file. Code Status: Full Code Subjective: C/C: rigors Interval History Status: not changed. Pt seen and examined this morning. Postop day #3 from I&D of the heel down to the bone. Patientfeeling significantly improved today. Reports that he is no longer feeling his heart rate. Left ankle feels well. BP improved. HR improved. Inquiring about getting started back on Suboxone. Brief History: Mr. Tip Ansari is a 42 year old gentleman who initially presented to [facility] ED from the local residential after he developed acute onset chills and shaking. He noted a wound to his left foot as well. Onset was abrupt, as he felt well earlier in the day. Patient was previously at [facility] in December for MRSA bacteremia with tricuspid valve vegetation. Hewas discharged on dalbavancin weekly x2 weeks in the infusion center with planned follow up CT and echocardiogram. In addition he was found to have septic arthritis of the right knee and left wrist (also positive for MRSA). In addition patient was found to be stool occult blood positive and lateralmultifocal scattered nodular opacities in lung with cavitation which was presumed to be septic emboli. The occult blood resolved itself after being placed on vancomycin and patient was discharged back to residential CT imaging in the ER revealed no evidence for PE, but with scattered airspace opacities are presentthroughout the lungs bilaterally to a mild degree, overall improved from prior, possibly representing residual pneumonia. Podiatry and ID have evaluated the patient. He is growing nathaniel in his blood and is on IV diflucan. -GIANFRANCO performed on 01/24 -MRI reveals osteomyelitis of the calcaneus with moderate amount of fluid within the retrocalcanealbursa demonstrated pronounced peripheral enhancement suggesting septic bursitis with involvement ofthe distal Achilles tendon. -Underwent I&D with podiatry [...] drug use. Drugs: Cocaine, Opiates , Marijuana (Dixon), and Methamphetamines (Crystal Meth). Hereports that he does not drink alcohol. Family History: Family History Problem Relation Age of Onset Cancer Mother skin No Known Problems Father Diabetes Maternal Grandmother Diabetes Maternal Grandfather Vitals: BP (!) 141/99 Pulse 101 Temp 98.2 F (36.8 C) (Oral) Resp 26 Ht 6' (1.829 m) Wt 174 lb 9.7oz (79.2 kg) SpO2 95% BMI 23.68 kg/m [...] Results Component Value Date PHART 7.380 12/16/2020 [id number] 44.5 12/16/2020 PO2ART 94.4 12/16/2020 [id number] 25.7 12/16/2020 NBEA NOT REPORTED 12/16/2020 PBEA 0.3 12/16/2020 [id number] 97.1 12/16/2020 FIO2 28 12/16/2020 Lab Results [...] abx/antifungals FABRICIO SYED DO 01/29/2022 1:33 PM * Nilsa Calderon RD, LD - 01/29/2022 12:24 PM EDT Comprehensive Nutrition Assessment Type and Reason for [...] loss Fluid Accumulation: 1 - Mild Extremities Repairer Recreational Vehicle Strength: Not Performed Estimated Daily Nutrient Needs: Energy (kcal): 25-28 kcal/kg = 1564-5675 kcals/day; Weight Used for Energy Requirements: [place] Protein (g): 1.2-1.5 gm/kg = 90-110 gm [...] kg) (12/13/21 bed scale per chart review) [place] Body Weight: 178 lbs; % [place] Body Weight 90 % BMI: 21.7 BMI [...] Status,Weight,Skin Discharge Planning: Continue current diet Contact: [phone] * Tip Parker APRN - LUCIANO - 01/29/2022 11:03 AM EDT [facility] Cardiothoracic Surgery Progress Note 01/29/2022 11:03 AM Subjective: Mr. Ansrai Resting in bed with no chest pain or SOB Pt is afebrile no chills he states States feels much better. Worried about withdrawal and requesting help with getting outpt help. Objective: BP (!) 143/94 Pulse 101 Temp 98.2 F (36.8 C) (Oral) Resp 27 Ht 6' (1.829 m) Wt 174 lb 9.7oz (79.2 kg) SpO2 97% BMI 23.68 kg/m [...] 201 178 131* BMP: Recent Labs 01/27/22 0601/28/22 0436 01/29/22 0548 NA 136 137 138 [...] flush, sodium chloride, diphenhydrAMINE, traZODone, glucose, dextrose, glucagon(rDNA), dextrose, melatonin, hydrOXYzine, potassium chloride OR potassium [...] spent with patient 20 MIAN ALBERTO NP * Marisol Andrea MD - 01/29/2022 10:22 AM EDT Images from the original note were not included. [facility] - Infectious diseases evaluation admission date 01/20/2022 reason for consultation: Sepsis Vanco allergy Impression : Current: Vancomycin reaction- Tachycardia fever red neck syndrome in [place] Pulmonary septic emboli, MRSA -residual lesions remain [...] and right shoulder. [Shoulder was a joint thatwas back Heroin use, hepatitis C Other: Patient did have a red neck syndrome infection with fever in [place] and again here Label allergic to vanco [...] condition carries increased mortality Infection Control Recommendations [place] Precautions Contact Isolation Antimicrobial Stewardship Recommendations Simplification of therapy IV to oral conversion Coordination ofOutpatient Care: Estimated Length of IV antimicrobials: Patient will need Midline / picc Catheter Insertion: Patient will need SNF: Patient will need outpatient wound care: History of Present Illness: Initial history: Tip Ansari is a 42 y.o.-year-old male sent to patient from residential because of rigors and fever as well as the left foot wound that seems to have started suddenly in residential Recently seen 12/2021 by [facility] for MRSA bacteremia, right knee septic [...] infusion site redness as well as redness overthe neck and face fever hotness tachycardia, most [...] to severe pain in spine while infusing - worse than a sciatica Resolved after infusion stopped [...] Acid, Whole Blood3.3 High Sed Rate58 High Eefglrjutmtiu07.47 High Micro: BC One f two, 01/21 [...] use: Yes Types: Cocaine, Opiates , Marijuana (Dixon), Methamphetamines (Crystal Meth) Comment: quit heroin Nov [...] Friends and Family: Not on file Attends [employer] Services: Not on file Active Member of [...] following labs: CBC with Differential: Recent Labs 01/28/226 01/29/22 0548 WBC 7.8 10.0 HGB 9.4* 9.4* HCT 30.1* 29.8* PLT 178 131* LYMPHOPCT 18* 10* MONOPCT 6 10 BMP: Recent Labs 01/28/226 01/29/22 0548 NA 137 138 K 3.5* 4.2 CL 103 108* CO2 20 20 BUN 29* 31* CREATININE 0.98 0.85 MG 1.7 -- Hepatic Function Panel: Recent Labs 01/28/226 01/29/22 0548 PROT 6.4 6.2* LABALBU 3.0* [...] Andrea MD Office: Perfect serve / office [phone] * Tariq Dumont MD - 01/28/2022 8:43 AM EDT Images from the original note were not included. [facility] - Infectious diseases evaluation Progress Note [...] reaction- Tachycardia, fever, red neck syndrome in [place] s/p 2 doses of Vancomycin. Likely serotonin [...] successfully as multiple subsequent blood cultures have shownno growth. However, GIANFRANCO 01/26/2022 shows residual tricuspid [...] foot I&D on 01/26/22 Infection Control Recommendations [place] Precautions Contact Isolation Antimicrobial Stewardship Recommendations Simplification of therapy IV to oral conversion Coordination ofOutpatient Care: Estimated Length of IV antimicrobials: Patient will need Midline / picc Catheter Insertion: Patient will need SNF: Patient will need outpatient wound care: History of Present Illness: Initial history: Tip Ansari is a 42 y.o.-year-old male sent from residential because of rigors and fever as well as a left foot wound that seems to have started suddenly in residential Recently seen 12/13/[address] Andrea at [facility] for MRSA septicemia, right knee [...] infusion site redness as well as redness overthe neck and face, fever, tachycardia, most likely [...] Whole Blood: 3.3 High Sed Rate58 High Fyzorzmxbcera22.47 High Micro: Blood: 12-13-21: MRSA x 2 [...] use: Yes Types: Cocaine, Opiates , Marijuana (Dixon), Methamphetamines (Crystal Meth) Comment: quit heroin Nov [...] Friends and Family: Not on file Attends [employer] Services: Not on file Active Member of [...] following labs: CBC with Differential: Recent Labs 01/27/2262101/28/226 WBC 19.8* 7.8 HGB 10.1* 9.4* HCT 31.8* 30.1* PLT 201 178 LYMPHOPCT 7* 18* MONOPCT 4 6 BMP: Recent Labs 01/27/2262101/28/22435 NA 136 137 K 4.4 3.5* CL [...] Contains abnormal data Culture, Blood 1 Order: [id number] Status: Final result Visible to patient: No [...] Martinez AT 1440 ON 12/14/2021 Resulting Agency [facility] Susceptibility Methicillin resistant staphylococcus aureus (4) Antibiotic [...] be extrapolated by contextual diversion. Chasity Matos, MIAN - [facility] Office: Perfect serve / office [phone] * Fabricio Syed DO - 01/28/2022 8:29 AM EDT Images from the original note were not included. [facility] Office: [phone] Mikie Rodriguez DO, Theo Lerma DO, Stuart Natarajan DO, Harpal Tran DO, Prashanth Sadler MD, Deana Raza MD, Florencia Canela MD, Tess Ford MD, Yuliana Saenz MD, Leodan Mak MD, Marimar Ren MD, Fabricio Syed, DO, Kyle Broussard DO, Juan Driver MD, Sophia Agustin, DO, MD Melony, Jodi Bain MD, Palomo Drummond MD, Johann Rodriguez DO, Radha Avila MD, Alberto Perez MD, Teresa Quintero, MANUSCRIPT EDITOR, Tika Tapia, MANUSCRIPT EDITOR, Mary Meléndez, MANUSCRIPT EDITOR, Cathleen Moran, BLOW UP OPERATOR, Abdirahman Bella, MANUSCRIPT EDITOR, Leslie Rao, MANUSCRIPT EDITOR, Madalyn Julien, MANUSCRIPT EDITOR, Ro Bernard, MANUSCRIPT EDITOR, Carter Charles, MANUSCRIPT EDITOR, Mckayla Bertrand, PA-C, Eli Fu, DNP, Razia Figueroa, DNP, Keri Walker, MANUSCRIPT EDITOR, Sherrie Rea, MANUSCRIPT EDITOR, Moon Waldrop, MANUSCRIPT EDITOR, Ethel Soto, MANUSCRIPT EDITOR, Jazzy Javier, MANUSCRIPT EDITOR, Shelli Menon, MANUSCRIPT EDITOR [facility] IN-PATIENT SERVICE [facility] Progress Note 01/28/2022 8:29 AM Name: Tip Ansari Acct: [id number] Room: Day: 8 Admit Date: 01/20/2022 10:23 [...] year old gentleman who initially presented to [facility] ED from the local residential after he developed acute onset chills and shaking. He noted a wound to his left foot as well. Onset was abrupt, as he felt well earlier in the day. Patient was previously at [facility] in December for MRSA bacteremia with tricuspid valve vegetation. Hewas discharged on dalbavancin weekly x2 weeks in the infusion center with planned follow up CT and echocardiogram. In addition he was found to have septic arthritis of the right knee and left wrist (also positive for MRSA). In addition patient was found to be stool occult blood positive and lateralmultifocal scattered nodular opacities in lung with cavitation which was presumed to be septic emboli. The occult blood resolved itself after being placed on vancomycin and patient was discharged back to residential CT imaging in the ER revealed no evidence for PE, but with scattered airspace opacities are presentthroughout the lungs bilaterally to a mild degree, overall improved from prior, possibly representing residual pneumonia. Podiatry and ID have evaluated the patient. He is growing nathaniel in his blood and is on IV diflucan. -GIANFRANCO performed on 01/24 -MRI reveals osteomyelitis of the calcaneus with moderate amount of fluid within the retrocalcanealbursa demonstrated pronounced peripheral enhancement suggesting septic bursitis with involvement ofthe distal Achilles tendon. -Underwent I&D with podiatry [...] drug use. Drugs: Cocaine, Opiates , Marijuana (Dixon), and Methamphetamines (Crystal Meth). Hereports that he does not drink alcohol. Family [...] MPV 8.7 9.2 8.8 Chemistry: Recent Labs 01/26/2245701/27/2262101/28/22 0436 NA 137 136 137 K 4.2 4.4 3.5* CL 104 101 103 CO2 21 24 20 GLUCOSE 123* 187* 153* BUN 26* 25* 29* CREATININE 0.95 0.93 0.98 MG -- -- 1.7 ANIONGAP 12 11 14 LABGLOM >60 >60 >60 GFRAA >60 >60 >60 CALCIUM 9.5 9.1 8.9 CKTOTAL 10* 11* 8* Recent Labs 01/26/2245701/27/2262101/28/226 PROT 8.0 7.2 6.4 LABALBU 3.1* 3.1* 3.0* AST 19 14 10 ALT 30 27 21 ALKPHOS 99 87 96 BILITOT 0.21* 0.30 <0.10* BILIDIR <0.08 0.09 <0.08 ABG: Lab Results Component Value Date PHART 7.380 12/16/2020 [id number] 44.5 12/16/2020 PO2ART 94.4 12/16/2020 [id number] 25.7 12/16/2020 NBEA NOT REPORTED 12/16/2020 PBEA 0.3 12/16/2020 [id number] 97.1 12/16/2020 FIO2 28 12/16/2020 Lab Results [...] fungemia - continue antifungals at infectious disease's discretion,appreciate ophthalmology evaluation. Tolerated his second dose of [...] issues. FABRICIO SYED DO 01/28/2022 8:29 AM * Tom White DPM - 01/27/2022 12:05 PM EDT Images from the original note were not included. Progress Note Podiatric Medicine and Surgery Subjective CC: Ankle pain, left Patient seen and examined at bedside. OR for I&D in the PM S/p I&D of left heel (01/26/2022) Pain is well controlled. HPI : Tip Ansari is a 42 y.o. male seen at [facility] for possible septic arthritis of the leftankle. Patient has extensive history of IV drug abuse, he was most recently admitted in December 2021 for concerns of multiple septic joints which resulted in negative cultures. 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 He presents today with persistent concerns for infection to the left ankle. He was evaluated by the infectious disease team earlier today who placed MRI ordered for left ankle. Patient states there has been a superficial draining wound to the posterior aspect of the left ankle for approx imately 2 weeks. He states at one point [...] flush, sodium chloride, sodium chloride flush, sodium chloride,diphenhydrAMINE, traMADol OR traMADol, traZODone, glucose, dextrose, glucagon (rDNA), dextrose,melatonin, hydrOXYzine, potassium chloride OR potassium alternative oral [...] [I.V.:300] Out: 600 [Urine:600] CBC: Recent Labs 01/25/22 0546 01/26/228 01/27/22621 WBC 9.0 8.2 19.8* HGB 10.6* 10.7* 10.1* HCT 34.5* 33.3* 31.8* PLT 189 183 201 BMP: Recent Labs 01/25/22 0546 01/26/228 01/27/22621 NA 139 137 136 K 4.4 4.2 [...] not hesitate to contact the podiatry resident automation technologist with any other questions or concerns. Follow-up with Dr. Grewal within [address] Aissatou White DPM Podiatric Medicine & Surgery 01/27/2022 at 12:05 PM * Fabricio Syed DO - 01/27/2022 11:00 AM EDT Images from the original note were not included. [facility] Office: [phone] Mikie Rodriguez DO, Theo Lerma DO, Stuart Natarajan DO, Harpal Tran DO, Prashanth Sadler MD, Deana aRza MD, Florencia Canela MD, Tess Ford MD, Yuliana Saenz MD, Leodan Mak MD, Marimar Ren MD, Fabricio Syed DO, Kyle Broussard DO, Juan Driver MD, Sophia Agustin DO, MD Melony, Jodi Bain MD, Palomo Drummond MD, Johann Rodriguez DO, Radha Avila MD, Alberto Perez MD, Teresa Quintero CNP, Tika Tapia CNP, Mary Meléndez CNP, Cathleen Moran, BLOW UP OPERATOR, Abdirahman Bella CNP, Leslie Rao MANUSCRIPT EDITOR, Madalyn Julien, MANUSCRIPT EDITOR, Ro Bernard, MANUSCRIPT EDITOR, Carter Charles, MANUSCRIPT EDITOR, Mckayla Bertrand PA-C, Eli Fu DNP, Razia Figueroa DNP, Keri Walker, PABLO, Sherrie Rea CNP, Moon Waldrop, PABLO, Ethel Soto, PABLO, Jazzy Javier CNP, Shelli Menon CNP [facility] IN-PATIENT SERVICE [facility] Progress Note 01/27/2022 11:00 AM Name: Tip Ansari Acct: [id number] Room: IP Day: 7 Admit Date: 01/20/2022 10:23 PM PCP: No primary care provider on file. Code Status: Full Code Subjective: C/C: rigors Interval History Status: not changed. Pt seen and examined this morning. Postop day #1 from I&D of the heel down to the bone. Patientreports he did not sleep last night secondary to pain. He tolerated his second infusion of amphotericin without many side effects. Tachycardic. Vital signs are otherwise stable. Brief History: Mr. Tip Ansari is a 42 year old gentleman who initially presented to [facility] ED from the local residential after he developed acute onset chills and shaking. He noted a wound to his left foot as well. Onset was abrupt, as he felt well earlier in the day. Patient was previously at [facility] in December for MRSA bacteremia with tricuspid valve vegetation. Hewas discharged on dalbavancin weekly x2 weeks in the infusion center with planned follow up CT and echocardiogram. In addition he was found to have septic arthritis of the right knee and left wrist (also positive for MRSA). In addition patient was found to be stool occult blood positive and lateralmultifocal scattered nodular opacities in lung with cavitation which was presumed to be septic emboli. The occult blood resolved itself after being placed on vancomycin and patient was discharged back to residential CT imaging in the ER revealed no evidence for PE, but with scattered airspace opacities are presentthroughout the lungs bilaterally to a mild degree, overall improved from prior, possibly representing residual pneumonia. Podiatry and ID have evaluated the patient. He is growing nathaniel in his blood and is on IV diflucan. -GIANFRANCO performed on 01/24 -MRI reveals osteomyelitis of the calcaneus with moderate amount of fluid within the retrocalcanealbursa demonstrated pronounced peripheral enhancement suggesting septic bursitis with involvement ofthe distal Achilles tendon. -Underwent I&D with podiatry [...] drug use. Drugs: Cocaine, Opiates , Marijuana (Dixon), and Methamphetamines (Crystal Meth). Hereports that he does not drink alcohol. Family [...] ml Labs: Hematology: Recent Labs 01/25/22 0546 01/26/2245701/27/22621 WBC 9.0 8.2 19.8* RBC 3.85* 3.85* [...] Labs 01/25/22 0546 01/26/22 0458 01/27/22 06 PROT 7.5 8.0 7.2 LABALBU 3.0* 3.1* 3.1* AST 21 19 14 ALT 31 30 27 ALKPHOS 99 99 87 BILITOT 0.20* 0.21* 0.30 BILIDIR <0.08 <0.08 0.09 ABG: Lab Results Component Value Date PHART 7.380 12/16/2020 [id number] 44.5 12/16/2020 PO2ART 94.4 12/16/2020 [id number] 25.7 12/16/2020 NBEA NOT REPORTED 12/16/2020 PBEA 0.3 12/16/2020 [id number] 97.1 12/16/2020 FIO2 28 12/16/2020 Lab Results [...] fungemia - continue antifungals at infectious disease's discretion,appreciate ophthalmology evaluation. Tolerated his second dose of [...] issues. FABRICIO SYED DO 01/27/2022 11:00 AM * Tariq Dumont MD - 01/27/2022 10:19 AM EDT Images from the original note were not included. [facility] - Infectious diseases evaluation Progress Note admission date 01/20/2022 reason for consultation: Sepsis Vanco allergy Impression : Current: Left calcaneal Osteomyelitis Partially torn left Achilles tendon with Achilles tendonitis Septic bursitis of left heel. s/p I&D 01/26/22 Currently on doxycyline because of allergic reaction to Vancomycin Vancomycin reaction- Tachycardia, fever, red neck syndrome in [place] s/p 2 doses of Vancomycin. Likely serotonin [...] successfully as multiple subsequent blood cultures have shownno growth. However, GIANFRANCO 01/26/2022 shows residual tricuspid [...] foot I&D on 01/26/22 Infection Control Recommendations [place] Precautions Contact Isolation Antimicrobial Stewardship Recommendations Simplification of therapy IV to oral conversion Coordination ofOutpatient Care: Estimated Length of IV antimicrobials: Patient will need Midline / picc Catheter Insertion: Patient will need SNF: Patient will need outpatient wound care: History of Present Illness: Initial history: Tip Ansari is a 42 y.o.-year-old male sent from residential because of rigors and fever as well as a left foot wound that seems to have started suddenly in residential Recently seen 12/13/[address] Andrea at [facility] for MRSA septicemia, right knee [...] infusion site redness as well as redness overthe neck and face, fever, tachycardia, most likely [...] Whole Blood: 3.3 High Sed Rate58 High Ynjmhcofksnqa05.47 High Micro: Blood: 12-13-21: MRSA x 2 [...] use: Yes Types: Cocaine, Opiates , Marijuana (Dixon), Methamphetamines (Crystal Meth) Comment: quit heroin Nov [...] Friends and Family: Not on file Attends [employer] Services: Not on file Active Member of [...] following labs: CBC with Differential: Recent Labs 01/26/22 0458 01/27/22 0622 WBC 8.2 19.8* HGB 10.7* 10.1* HCT [...] Contains abnormal data Culture, Blood 1 Order: [id number] Status: Final result Visible to patient: No [...] back by:DIANE Martinez AT 1440 ON 12/14/2021 [facility] Susceptibility Methicillin resistant staphylococcus aureus (4) Antibiotic [...] be extrapolated by contextual diversion. Chasity Matos, [employer] - MANUSCRIPT EDITOR ATTESTATION: I have discussed the case, including pertinent history and exam findings with the [employer]. I have evaluated the History, physical findings and pictures of the patient and the hall elements of the encounter have been performed by me. I have reviewed the laboratory data, other diagnostic studies and discussed them with the [employer]. I have updated the medical record where necessary. I agree with the assessment, plan and orders as documented by the [employer]. Tariq Dumont MD. Office: Perfect serve / office [phone] * Marisol Andrea MD - 01/26/2022 11:19 PM EDT Images from the original note were not included. [facility] - Infectious diseases evaluation admission date 01/20/2022 reason for consultation: Sepsis Vanco allergy Impression : Current: Vancomycin reaction- Tachycardia fever red neck syndrome in [place] Pulmonary septic emboli, MRSA -residual lesions remain [...] and right shoulder. [Shoulder was a joint thatwas back Heroin use, hepatitis C Other: Patient did have a red neck syndrome infection with fever in [place] and again here Label allergic to vanco [...] condition carries increased mortality Infection Control Recommendations [place] Precautions Contact Isolation Antimicrobial Stewardship Recommendations Simplification of therapy IV to oral conversion Coordination ofOutpatient Care: Estimated Length of IV antimicrobials: Patient will need Midline / picc Catheter Insertion: Patient will need SNF: Patient will need outpatient wound care: History of Present Illness: Initial history: Tip Ansari is a 42 y.o.-year-old male sent to patient from residential because of rigors and fever as well as the left foot wound that seems to have started suddenly in residential Recently seen 12/2021 by me [facility] for [...] infusion site redness as well as redness overthe neck and face fever hotness tachycardia, most [...] to severe pain in spine while infusing - worse than a sciatica Resolved after infusion stopped Willing to try again w slow infusion and premedication BC C alb x 1 and all there neg Post L ankle I/D 01/26 Summary of relevant labs: Labs: WBC 10 CRP51.6 High CREATININE0.73 Lactic Acid, Whole Blood3.3 High Sed Rate58 High Pzczxikbugdsv83.47 High Micro: BC One f two, 01/21 [...] use: Yes Types: Cocaine, Opiates , Marijuana (Dixon), Methamphetamines (Crystal Meth) Comment: quit heroin Nov [...] Friends and Family: Not on file Attends Mu-Is[employer] Services: Not on file Active Member of [...] Andrea MD Office: Perfect serve / office [phone] * Fabricio Syed DO - 01/26/2022 2:35 PM EDT Images from the original note were not included. [facility] Office: [phone] Mikie Rodriguez DO, Theo Lerma DO, Stuart Natarajan DO, Harpal Tran DO, Prashanth Sadler MD, Deana Raza MD, Florencia Canela MD, Tess Ford MD, Yuliana Saenz MD, Leodan Mak MD, Marimar Ren MD, Fabricio Syed, DO, Kyle Broussard, DO, Juan Driver MD, Sophia Agustin, DO, MD Melony, Jodi Bain MD, Palomo Drummond MD, Johann Rodriguez, DO, Radha Avila MD, Alberto Perez MD, Teresa Quintero, MANUSCRIPT EDITOR, Tika Tapia, MANUSCRIPT EDITOR, Mary Meléndez, MANUSCRIPT EDITOR, Cathleen Moran, BLOW UP OPERATOR, Abdirahman Bella, MANUSCRIPT EDITOR, Leslie Rao, MANUSCRIPT EDITOR, Madalyn Julien, MANUSCRIPT EDITOR, Ro Bernard, MANUSCRIPT EDITOR, Carter Charles, MANUSCRIPT EDITOR, Mckayla Bertrand, PA-C, Eli Fu, DNP, Razia Figueroa, DNP, Krei Walker, MANUSCRIPT EDITOR, Sherrie Rea, MANUSCRIPT EDITOR, Moon Waldrop, MANUSCRIPT EDITOR, Ethel Soto, MANUSCRIPT EDITOR, Jazzy Javier, MANUSCRIPT EDITOR, Shelli Menon, MANUSCRIPT EDITOR [facility] IN-PATIENT SERVICE [facility] Progress Note 01/26/2022 2:36 PM Name: Tip Ansari Acct: [id number] Room: [facility] Day: 6 Admit Date: 01/20/2022 10:23 PM PCP: No primary care provider on file. Code Status: Full Code Subjective: C/C: rigors Interval History Status: not changed. Pt seen and examined this morning. Overnight, patient with significant reaction after initiation ofamphotericin. Patient reports significant low back pain along with pain at the IV insertion site. IV was removed. Today, he is feeling better. He is n.p.o., as he is going to the OR this afternoon. Heart rate is improving slowly. Brief History: Mr. Tip Ansari is a 42 year old gentleman who initially presented to [facility] ED from the local residential after he developed acute onset chills and shaking. He noted a wound to his left foot as well. Onset was abrupt, as he felt well earlier in the day. Patient was previously at [facility] in December for MRSA bacteremia with tricuspid valve vegetation. Hewas discharged on dalbavancin weekly x2 weeks in the infusion center with planned follow up CT and echocardiogram. In addition he was found to have septic arthritis of the right knee and left wrist (also positive for MRSA). In addition patient was found to be stool occult blood positive and lateralmultifocal scattered nodular opacities in lung with cavitation which was presumed to be septic emboli. The occult blood resolved itself after being placed on vancomycin and patient was discharged back to residential CT imaging in the ER revealed no evidence for PE, but with scattered airspace opacities are presentthroughout the lungs bilaterally to a mild degree, overall improved from prior, possibly representing residual pneumonia. Podiatry and ID have evaluated the patient. He is growing nathaniel in his blood and is on IV diflucan. -GIANFRANCO performed on 01/24 -MRI reveals osteomyelitis of the calcaneus with moderate amount of fluid within the retrocalcanealbursa demonstrated pronounced peripheral enhancement suggesting septic bursitis with involvement ofthe distal Achilles tendon. Ultimately started on devolve [...] OR [JAN Hold] ondansetron, [JAN Hold] polyethylene glycol,[JAN Hold] acetaminophen OR [JAN Hold] acetaminophen Data: Past Medical History: has a past medical history of Abscess, Chronic hepatitis C without hepatic coma (HCC), COPD (chronic obstructive pulmonary disease) (HCC), Depression, and Drug addiction (HCC). Social History: reports that he has quit smoking. He has never used smokeless tobacco. He reports current drug use. Drugs: Cocaine, Opiates , Marijuana (Dixon), and Methamphetamines (Crystal Meth). Hereports that he does not drink alcohol. Family History: Family History Problem Relation Age of Onset Cancer Mother skin No Known Problems Father Diabetes Maternal Grandmother Diabetes Maternal Grandfather Vitals: BP 114/84 Pulse 97 Temp 97 F (36.1 C) (Temporal) Resp 16 Ht 6' (1.829 m) Wt 160 lb 3.2 oz(72.7 kg) SpO2 100% BMI 21.73 kg/m Temp [...] CKTOTAL 9* 10* Recent Labs 01/23/22211601/24/22 0806 01/25/22 0546 01/26/228 PROT -- -- 7.5 8.0 LABALBU -- -- 3.0* 3.1* AST -- -- 21 19 ALT -- -- 31 30 ALKPHOS -- -- 99 99 BILITOT -- -- 0.20* 0.21* BILIDIR -- -- <0.08 <0.08 POCGLU 122* 97 -- -- ABG: Lab Results Component Value Date PHART 7.380 12/16/2020 [id number] 44.5 12/16/2020 PO2ART 94.4 12/16/2020 [id number] 25.7 12/16/2020 NBEA NOT REPORTED 12/16/2020 PBEA 0.3 12/16/2020 [id number] 97.1 12/16/2020 FIO2 28 12/16/2020 Lab Results [...] placed FABRICIO SYED DO 01/26/2022 2:36 PM * Tom White DPM - 01/26/2022 1:04 PM EDT Images from the original note were not included. Progress Note Podiatric Medicine and Surgery Subjective CC: Ankle pain, left Patient seen and examined at bedside. OR for I&D in the PM Patient NPO since midnight Surgery delayed yesterday due to scheduling HPI : Tip Ansari is a 42 y.o. male seen at [facility] for possible septic arthritis of the leftankle. Patient has extensive history of IV drug abuse, he was most recently admitted in December 2021 for concerns of multiple septic joints which resulted in negative cultures. 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 He presents today with persistent concerns for infection to the left ankle. He was evaluated by the infectious disease team earlier today who placed MRI ordered for left ankle. Patient states there has been a superficial draining wound to the posterior aspect of the left ankle for approx imately 2 weeks. He states at one point [...] Daily Continuous Infusions: sodium chloride Stopped (01/25/22 184) dextrose PRN Meds:sodium chloride flush, sodium chloride, [...] 189 183 BMP: Recent Labs 01/25/22 0546 01/26/22457 NA [...] Crepitus and induration absent. There is suspected fluctuancein the area without clear apex of abscess. [...] Medicine & Surgery 01/26/2022 at 1:04 PM * CHASITY ROMERO - 01/26/2022 8:42 AM EDT Images from the original note were not included. Physical Therapy Physical Therapy Cancel Note DATE: 01/26/2022 NAME: Tip Ansari : 1980 Patient not seen this date for Physical Therapy due to: Patient Declined: Pt refused PT this AM. I just woke up. I am pretty mobile. I am having surgery at 3:00 PM RN notified. Will attempt later prior to surgery if able. * Ross Lan RN - 01/25/2022 11:00 PM EDT 21:31 Patient administered amphotericin 21:45 Pt complains [...] IV. Nurse stopped iv 21:58 Nurse notified automation technologist CORRECTIONAL MEDICINE PHYSICIAN Yoly Quintero. Ordered benadryl and morphine. Notified [...] It's not happening.. will continue to monitor... * Marisol Andrea MD - 01/25/2022 10:58 PM EDT Images from the original note were not included. [facility] - Infectious diseases evaluation admission date 01/20/2022 reason for consultation: Sepsis Vanco allergy Impression : Current: Vancomycin reaction- Tachycardia fever red neck syndrome in [place] Pulmonary septic emboli, MRSA -cavitations improved, nodules [...] and right shoulder. [Shoulder was a joint thatwas back Heroin use, hepatitis C Other: Patient did have a red neck syndrome infection with fever in [place] and again here Label allergic to vanco [...] condition carries increased mortality Infection Control Recommendations [place] Precautions Contact Isolation Antimicrobial Stewardship Recommendations Simplification of therapy IV to oral conversion Coordination ofOutpatient Care: Estimated Length of IV antimicrobials: Patient will need Midline / picc Catheter Insertion: Patient will need SNF: Patient will need outpatient wound care: History of Present Illness: Initial history: Tip Ansari is a 42 y.o.-year-old male sent to patient from residential because of rigors and fever as well as the left foot wound that seems to have started suddenly in residential Recently seen 12/2021 by me ALVES for [...] infusion site redness as well as redness overthe neck and face fever hotness tachycardia, most [...] Acid, Whole Blood3.3 High Sed Rate58 High Kyadobapwtovy27.47 High Micro: BC One f two, 01/21 [...] use: Yes Types: Cocaine, Opiates , Marijuana (Dixon), Methamphetamines (Crystal Meth) Comment: quit heroin Nov [...] Friends and Family: Not on file Attends Mu-Ism Services: Not on file Active Member of [...] Andrea MD Office: Perfect serve / office [phone] * Nilsa Calderon RD, LD - 01/25/2022 1:16 PM EDT Comprehensive Nutrition Assessment Type and Reason for [...] muscle mass loss Fluid Accumulation: (Moderate) Extremities Repairer Recreational Vehicle Strength: Not Performed Estimated Daily Nutrient Needs: [...] kg) (12/13/21 bed scale per chart review) [place] Body Weight: 178 lbs; % [place] Body Weight 90 % BMI: 21.7 BMI [...] Discharge Planning: Too soon to determine Contact: [phone] * Fabricio Syed DO - 01/25/2022 12:15 PM EDT Images from the original note were not included. [facility] Office: [phone] Mikie Rodriguez DO, Theo Lerma DO, Stuart Natarajan DO, Harpal Tran DO, Prashanth Sadler MD, Deana Raza MD, Florencia Canela MD, Tess Ford MD, Yuliana Saenz MD, Leodan Mak MD, Marimar Ren MD, Fabricio Syed DO, Kyle Broussard DO, Juan Driver MD, Sophia Agustin DO, MD Melony, Jodi Bain MD, Palomo Drummond MD, Johann Rodriguez DO, Radha Avila MD, Alberto Perez MD, Teresa Quintero, MANUSCRIPT EDITOR, Tika Tapia, MANUSCRIPT EDITOR, Mary Meléndez, MANUSCRIPT EDITOR, Cathleen Moran, BLOW UP OPERATOR, Abdirahman Bella, MANUSCRIPT EDITOR, Leslie Rao, MANUSCRIPT EDITOR, Madalyn Julien, MANUSCRIPT EDITOR, Ro Bernard, MANUSCRIPT EDITOR, Carter Charles, MANUSCRIPT EDITOR, Mckayla Bertrand PA-C, Eli Fu, DNP, Razia Figueroa, DNP, Keri Walker, MANUSCRIPT EDITOR, Sherrie Rea, MANUSCRIPT EDITOR, Moon Waldrop, MANUSCRIPT EDITOR, Ethel Soto, MANUSCRIPT EDITOR, Jazzy Javier, MANUSCRIPT EDITOR, Shelli Menon, MANUSCRIPT EDITOR [facility] IN-PATIENT SERVICE [facility] Progress Note 01/25/2022 12:15 PM Name: Tip Ansari Acct: [id number] Room: IP Day: 5 Admit Date: 01/20/2022 [...] year old gentleman who initially presented to [facility] ED from the local residential after he developed acute onset chills and shaking. He noted a wound to his left foot as well. Onset was abrupt, as he felt well earlier in the day. Patient was previously at [facility] in December for MRSA bacteremia with tricuspid valve vegetation. Hewas discharged on dalbavancin weekly x2 weeks in the infusion center with planned follow up CT and echocardiogram. In addition he was found to have septic arthritis of the right knee and left wrist (also positive for MRSA). In addition patient was found to be stool occult blood positive and lateralmultifocal scattered nodular opacities in lung with cavitation which was presumed to be septic emboli. The occult blood resolved itself after being placed on vancomycin and patient was discharged back to residential CT imaging in the ER revealed no evidence for PE, but with scattered airspace opacities are presentthroughout the lungs bilaterally to a mild degree, overall improved from prior, possibly representing residual pneumonia. Podiatry and ID have evaluated the patient. He is growing nathaniel in his blood and is on IV diflucan. -GIANFRANCO performed on 01/24 -MRI reveals osteomyelitis of the calcaneus with moderate amount of fluid within the retrocalcanealbursa demonstrated pronounced peripheral enhancement suggesting septic bursitis with involvement ofthe distal Achilles tendon. Review of Systems: Constitutional: [...] drug use. Drugs: Cocaine, Opiates , Marijuana (Dixon), and Methamphetamines (Crystal Meth). Hereports that he does not drink alcohol. Family [...] Results Component Value Date PHART 7.380 12/16/2020 [id number] 44.5 12/16/2020 PO2ART 94.4 12/16/2020 MFF0SVV 25.7 12/16/2020 NBEA NOT REPORTED 12/16/2020 PBEA 0.3 12/16/2020 [id number] 97.1 12/16/2020 FIO2 28 12/16/2020 Lab Results [...] surgery evaluation - complete course of IV anti- fungals. Then repeat echo. 4. AE to vancomycin - red man syndrome in [place] ED Left ankle soft tissue infection - [...] input. To OR today for podiatric intervention. Antifungalsand antibiotics have been adjusted. FABRICIO SYED DO 01/25/2022 12:15 PM * Kwabena Ashraf, [employer] FARMER - CORRECTIONAL MEDICINE PHYSICIAN - 01/25/2022 10:25 AM EDT Images from the original note were not included. [facility] Supervisor Progress Note Date: 01/25/2022 Patient name: Tip [...] Infusions: dextrose sodium chloride 25 mL (01/24/22 0674) CBC: Recent Labs 01/23/22 0911 01/25/22 0546 [...] eccentric regurgitation is identified. Cardiovascular Diseases Fellow [facility] Objective: Vitals: BP 115/81 Pulse 113 Temp 98.4 F (36.9 C) (Oral) Resp 20 Ht 6' (1.829 m) Wt 160 lb3.2 oz (72.7 kg) SpO2 98% BMI 21.73 [...] underlying disease such as endocarditis /sepsis/ dehydration -will add low peng BB and discontinue MAXZIDE 2. GIANFRANCO reviewed - CTS note noted . No plan for surgery today Recommend repeating ECHO after completion of antibiotic course per ID 3. Keep k>4, Mg>2 [place] [facility] Supervisor [facility]. [phone] * Sawyer Arceo DPM - 01/25/2022 7:50 AM EDT Images from the original note were not included. Progress Note Podiatric Medicine and Surgery Subjective CC: Ankle pain, left Patient seen and examined at bedside. OR for I&D in the PM Patient is NPO HPI : Tip Ansari is a 42 y.o. male seen at [facility] for possible septic arthritis of the leftankle. Patient has extensive history of IV drug abuse, he was most recently admitted in December 2021 for concerns of multiple septic joints which resulted in negative cultures. 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 He presents today with persistent concerns for infection to the left ankle. He was evaluated by the infectious disease team earlier today who placed MRI ordered for left ankle. Patient states there has been a superficial draining wound to the posterior aspect of the left ankle for approx imately 2 weeks. He states at one point [...] Infusions: dextrose sodium chloride 25 mL (01/24/22 2234) PRN Meds:traZODone, glucose, dextrose, glucagon (rDNA), dextrose, [...] Crepitus and induration absent. There is suspected fluctuancein the area without clear apex of abscess. [...] this area in comparison with radiographs from 12/13/2021.There is also loss of Kager's triangle suspicious [...] Medicine & Surgery 01/25/2022 at 7:50 AM * Jaida Bardales RN - 01/25/2022 2:50 AM EDT [facility] messaged regarding IV situation. Darnell Tapia CORRECTIONAL MEDICINE PHYSICIAN placed order for PICC Line. Jacob JuanAccounting Director notified and stated he will notify PICC team in the morning to try and get this patients PICC placed urgently due to patient having surgery this morning with Podiatry. * Jaida Bardales RN - 01/25/2022 2:39 AM EDT Unsuccessful with IV Ultrasound at this time. Pt. No longer wanting to be poked at this time, refusing another try. Will message primary team to let them know. Pt. Did not receive his dose of Ambisome antibiotic this evening due to all the issues with trying to gain new access. * Jaida Bardales RN - 01/25/2022 2:15 AM EDT Pt. IV infiltrated when trying to start antibiotic. Jacob Iqbal Dr. For [facility] messaged and arrived trying to start new IV at bedside. * Jaida Bardales RN - 01/24/2022 10:15 PM EDT perfectserved Lisa primary team regarding multiple attempts tried to obtain IV access along with using ultrasound for IV...unsuccessful. Asked if we could try the house doctor automation technologist to place a line. Wilma Quintero NP with [facility] said that was ok to do. [phone]-perfectserved jacob maciel for [facility] perfecto, Dr. Main Huitron. Came to the floor and spoke to pt. Regarding place a line or trying another peripheral IV with the ultrasound machine again but pt. Refused at this time. Dr. Huitron explained to headline writer and pt. If he changes his mind to let him know and he will come back again this evening to try. Pt. Agreeable. Pt. Has a #20 Left AC, dressing has been changed. Will continue to use the one line available to instill his 3 separate antibiotics this evening. Accounting Director, Drake stated he will try and contactthe PICC team in the morning to get pt. Added to list for possible midline or PICC line. * Marisol Andrea MD - 01/24/2022 5:01 PM EDT Images from the original note were not included. [facility] - Infectious diseases evaluation admission date 01/20/2022 reason for consultation: Sepsis Vanco allergy Impression : Current: Vancomycin reaction- Tachycardia fever red neck syndrome in [place] Pulmonary septic emboli, MRSA -cavitations improved, nodules [...] and right shoulder. [Shoulder was a joint thatwas back Heroin use, hepatitis C Other: Patient did have a red neck syndrome infection with fever in [place] and again here Label allergic to vanco [...] eval for TV replacement Infection Control Recommendations [place] Precautions Contact Isolation Antimicrobial Stewardship Recommendations Simplification of therapy IV to oral conversion Coordination ofOutpatient Care: Estimated Length of IV antimicrobials: Patient will need Midline / picc Catheter Insertion: Patient will need SNF: Patient will need outpatient wound care: History of Present Illness: Initial history: Tip Ansari is a 42 y.o.-year-old male sent to patient from residential because of rigors and fever as well as the left foot wound that seems to have started suddenly in residential Recently seen 12/2021 by me ALVES for [...] infusion site redness as well as redness overthe neck and face fever hotness tachycardia, most [...] 01/24/22 1121 98 F (36.7 C) Axillary 03/16/22 1100 104/84 114 24 96 % 01/24/22 [...] Acid, Whole Blood3.3 High Sed Rate58 High Jntnhdnbdigtj17.47 High Micro: BC One f two, 01/21 [...] use: Yes Types: Cocaine, Opiates , Marijuana (Dixon), Methamphetamines (Crystal Meth) Comment: quit heroin Nov [...] Friends and Family: Not on file Attends Mu-Ism Services: Not on file Active Member of [...] Andrea MD Office: Perfect serve / office [phone] * Fabricio Syed DO - 01/24/2022 2:24 PM EDT Images from the original note were not included. [facility] Office: [phone] Mikie Rodriguez DO, Theo Lerma DO, Stuart Natarajan DO, Harpal Tran DO, Prashanth Sadler MD, Deana Raza MD, Florencia Canela MD, Tess Ford MD, Yuliana Saenz MD, Leodan Mak MD, Marimar Ren MD, Fabricio Syed DO, Kyle Broussard DO, Juan Driver MD, Sophia Agustin DO, MD Melony, Jodi Bain MD, Palomo Drummond MD, Johann Rodriguez DO, Radha Avila MD, Alberto Perez MD, Teresa Quintero CNP, Tika Tapia MANUSCRIPT EDITOR, Mary Meléndez, MANUSCRIPT EDITOR, Cathleen Moran, BLOW UP OPERATOR, Abdirahman Bella, MANUSCRIPT EDITOR, Leslie Rao, MANUSCRIPT EDITOR, Madalyn Julien, MANUSCRIPT EDITOR, Ro Bernard, PABLO, Carter Charles CNP, Mckayla Bertrand PA-C, Eli Fu DNP, Razia Figueroa DNP, Keri Walker, MANUSCRIPT EDITOR, Sherrie Rea, PABLO, Moon Waldrop CNP, Ethel Soto CNP, Jazzy Javier CNP, Shelli Menon CNP [facility] IN-PATIENT SERVICE [facility] Progress Note 01/24/2022 2:24 PM Name: Tip Ansari Acct: [id number] Room: IP Day: 4 Admit Date: 01/20/2022 [...] year old gentleman who initially presented to [facility] ED from the local residential after he developed acute onset chills and shaking. He noted a wound to his left foot as well. Onset was abrupt, as he felt well earlier in the day. Patient was previously at [facility] in December for MRSA bacteremia with tricuspid valve vegetation. Hewas discharged on dalbavancin weekly x2 weeks in the infusion center with planned follow up CT and echocardiogram. In addition he was found to have septic arthritis of the right knee and left wrist (also positive for MRSA). In addition patient was found to be stool occult blood positive and lateralmultifocal scattered nodular opacities in lung with cavitation which was presumed to be septic emboli. The occult blood resolved itself after being placed on vancomycin and patient was discharged back to residential CT imaging in the ER revealed no evidence for PE, but with scattered airspace opacities are presentthroughout the lungs bilaterally to a mild degree, overall improved from prior, possibly representing residual pneumonia. Podiatry and ID have evaluated the patient. He is growing nathaniel in his blood and is on IV diflucan. -GIANFRANCO performed on 01/24 -MRI reveals osteomyelitis of the calcaneus with moderate amount of fluid within the retrocalcanealbursa demonstrated pronounced peripheral enhancement suggesting septic bursitis with involvement ofthe distal Achilles tendon. Review of Systems: Constitutional: [...] Continuous Infusions: dextrose sodium chloride Stopped (01/24/22 022) PRN Meds: traZODone, glucose, dextrose, glucagon (rDNA), [...] drug use. Drugs: Cocaine, Opiates , Marijuana (Dixon), and Methamphetamines (Crystal Meth). Hereports that he does not drink alcohol. Family [...] 0928 01/23/22 1216 01/23/22 2117 01/24/22 0806 PROT -- -- -- -- 7.4 [...] Results Component Value Date PHART 7.380 12/16/2020 [id number] 44.5 12/16/2020 PO2ART 94.4 12/16/2020 ISI5ESC 25.7 12/16/2020 NBEA NOT REPORTED 12/16/2020 PBEA 0.3 12/16/2020 [id number] 97.1 12/16/2020 FIO2 28 12/16/2020 Lab Results [...] to vancomycin - red man syndrome in [place] ED 5. Left ankle soft tissue infection [...] therapy. FABRICIO SYED DO 01/24/2022 2:24 PM * Giles Pacheco Bridgeton, DPM - 01/24/2022 9:51 AM EDT Images from the original note were not [...] ordered, consent obtained this patient was in Credit Control Officer: Consent consists of incision and drainage with debridement of all nonviable soft tissue and bone, bone culture, soft tissue culture, possible wound VAC HPI : Tip Ansari is a 42 y.o. male seen at [facility] for possible septic arthritis of the leftankle. Patient has extensive history of IV drug abuse, he was most recently admitted in December 2021 for concerns of multiple septic joints which resulted in negative cultures. 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 He presents today with persistent concerns for infection to the left ankle. He was evaluated by the infectious disease team earlier today who placed MRI ordered for left ankle. Patient states there has been a superficial draining wound to the posterior aspect of the left ankle for approx imately 2 weeks. He states at one point [...] Infusions: dextrose sodium chloride Stopped (01/24/22225) PRN Meds:traZODone, glucose, dextrose, glucagon (rDNA), dextrose, [...] Crepitus and induration absent. There is suspected fluctuancein the area without clear apex of abscess. [...] this area in comparison with radiographs from 12/13/2021.There is also loss of Kager's triangle suspicious [...] Medicine & Surgery 01/24/2022 at 9:52 AM * Marisol Andrea MD - 01/23/2022 10:33 PM EDT Images from the original note were not included. [facility] - Infectious diseases evaluation admission date 01/20/2022 reason for consultation: Sepsis Vanco allergy Impression : Current: Vancomycin reaction- Tachycardia fever red neck syndrome in [place] Pulmonary septic emboli, MRSA -cavitations improved, nodules [...] and right shoulder. [Shoulder was a joint thatwas back Heroin use, hepatitis C Other: Patient did have a red neck syndrome infection with fever in [place] and again here Label allergic to vanco [...] MRSA septic pulm emboli Infection Control Recommendations [place] Precautions Contact Isolation Antimicrobial Stewardship Recommendations Simplification of therapy IV to oral conversion Coordination ofOutpatient Care: Estimated Length of IV antimicrobials: Patient will need Midline / picc Catheter Insertion: Patient will need SNF: Patient will need outpatient wound care: History of Present Illness: Initial history: Tip Ansari is a 42 y.o.-year-old male sent to patient from residential because of rigors and fever as well as the left foot wound that seems to have started suddenly in residential Recently seen 12/2021 by [facility] for MRSA bacteremia, right knee septic [...] infusion site redness as well as redness overthe neck and face fever hotness tachycardia, most [...] Acid, Whole Blood3.3 High Sed Rate58 High Yziancszdbtkb68.47 High Micro: BC One f two, 01/21 [...] use: Yes Types: Cocaine, Opiates , Marijuana (Dixon), Methamphetamines (Crystal Meth) Comment: quit heroin Nov [...] Friends and Family: Not on file Attends Mu-Ism Services: Not on file Active Member of [...] Andrea MD Office: Perfect serve / office [phone] * Giles Garcia DPM - 01/23/2022 10:15 AM EDT Images from the original note were not [...] is a 42 y.o. male seen at [facility] for possible septic arthritis of the leftankle. Patient has extensive history of IV drug abuse, he was most recently admitted in December 2021 for concerns of multiple septic joints which resulted in negative cultures. 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 He presents today with persistent concerns for infection to the left ankle. He was evaluated by the infectious disease team earlier today who placed MRI ordered for left ankle. Patient states there has been a superficial draining wound to the posterior aspect of the left ankle for approx imately 2 weeks. He states at one point [...] Date SEDRATE 58 (H) 01/21/2022 Recent Labs 01/21/228 CRP 51.6* Physical Exam: Vascular: DP and [...] Crepitus and induration absent. There is suspected fluctuancein the area without clear apex of abscess. [...] this area in comparison with radiographs from 12/13/2021.There is also loss of Kager's triangle suspicious for abscess or effusion. MRI of left ankle ordered -pending Medicine as primary team for medical management ID following ? doxycycline, fluconazole Overall clinical presentation is unimpressive for acute septic arthritis of the left ankle. Patientlikely has subacute osteomyelitis of the calcaneus and possible subacute abscess of the posterior ankle which require formal incision and drainage in the OR. Further recommendations to follow pendingMRI results. Dressing applied to Left lower extremity: Mepilex Weightbearing as tolerated to Left lower extremity Discussed with Dr. Aissatou Garcia DPM Podiatric Medicine & Surgery 01/23/2022 at 10:16 AM * Edilia Og RN - 01/23/2022 8:59 AM EDT Noted referral for Wound Ostomy nurse for left ankle wound. The Podiatry service is managing for acute osteomyelitis of this wound. Will defer to Podiatry and sign off. Please re-consult if needed. Thank you. * Fabricio Syed DO - 01/23/2022 8:25 AM EDT Images from the original note were not included. [facility] Office: [phone] Mikie Rodriguez DO, Theo Lerma DO, Stuart Natarajan DO, Hapral Tran DO, Prashanth Sadler MD, Deana Raza MD, Florencia Canela MD, Tess Ford MD, Yuliana Saenz MD, Leodan Mak MD, Marimar Ren MD, Fabricio Syed DO, Kyle Broussard DO, Juan Driver MD, Sophia Agustin DO, MD Melony, Jodi Bain MD, Palomo Drummond MD, Johann Rodriguez DO, Radha Avila MD, Alberto Perez MD, Teresa Quintero, MANUSCRIPT EDITOR, Tika Tapia, MANUSCRIPT EDITOR, Mary Meléndez, MANUSCRIPT EDITOR, Cathleen Moran, BLOW UP OPERATOR, Abdirahman Bella, MANUSCRIPT EDITOR, Leslie Rao, MANUSCRIPT EDITOR, Madalyn Julien, MANUSCRIPT EDITOR, Ro Bernard, MANUSCRIPT EDITOR, Carter Charles, MANUSCRIPT EDITOR, KO HunterC, Eli Fu, DNP, Razia Figueroa, DNP, Keri Walker, MANUSCRIPT EDITOR, Sherrie Rea, MANUSCRIPT EDITOR, Moon Waldrop, MANUSCRIPT EDITOR, Ethel Soto, MANUSCRIPT EDITOR, Jazzy Javier, MANUSCRIPT EDITOR, Shelli Menon, MANUSCRIPT EDITOR [facility] IN-PATIENT SERVICE [facility] Progress Note 01/23/2022 8:25 AM Name: Tip Ansari Acct: [id number] Room: Day: 3 Admit Date: 01/20/2022 10:23 PM PCP: No primary care provider on file. Code Status: Full Code Subjective: C/C: rigors Interval History Status: not changed. Pt seen and examined this morning. RN and authorities are at bedside. Patient reports that he feelswell. Had a bowel movement this morning. Feeling improved. Last heroin use was on January 11 prior to incarceration. Brief History: Mr. Tip Ansari is a 42 year old gentleman who initially presented to [facility] ED from the local residential after he developed acute onset chills and shaking. He noted a wound to his left foot as well. Onset was abrupt, as he felt well earlier in the day. Patient was previously at [facility] in December for MRSA bacteremia with tricuspid valve vegetation. Hewas discharged on dalbavancin weekly x2 weeks in the infusion center with planned follow up CT and echocardiogram. In addition he was found to have septic arthritis of the right knee and left wrist (also positive for MRSA). In addition patient was found to be stool occult blood positive and lateralmultifocal scattered nodular opacities in lung with cavitation which was presumed to be septic emboli. The occult blood resolved itself after being placed on vancomycin and patient was discharged back to residential CT imaging in the ER revealed no evidence for PE, but with scattered airspace opacities are presentthroughout the lungs bilaterally to a mild degree, [...] pulmonary disease) (HCC), Depression, and Drug addiction ([facility]). Social History: reports that he has quit smoking. He has never used smokeless tobacco. He reports current drug use. Drugs: Cocaine, Opiates , Marijuana (Dixon), and Methamphetamines (Crystal Meth). Hereports that he does not drink alcohol. Family [...] Results Component Value Date PHART 7.380 12/16/2020 BOZ5SHT 44.5 12/16/2020 PO2ART 94.4 12/16/2020 JTP7VGW 25.7 12/16/2020 NBEA NOT REPORTED 12/16/2020 PBEA 0.3 12/16/2020 [id number] 97.1 12/16/2020 FIO2 28 12/16/2020 Lab Results [...] Yes Sinus tachycardia 01/23/2022 Yes Heroin abuse ([facility]) 01/23/2022 Yes Moderate tricuspid regurgitation 01/23/2022 Yes Hepatitis C virus infection without hepatic coma 01/23/2022 Yes Hyperglycemia 01/23/2022 Yes Plan: 1. Sepsis likely due to Nathaniel bacteremia - continue fluconazole. ID following 2. Presumed endocarditis - GIANFRANCO pending; cardiology consulted 3. AE to vancomycin - red man syndrome in [place] ED 4. Left ankle soft tissue infection - r/o osteomyelitis. MRI pending. Podiatry following. 5. Heroin abuse - SW to assist. Patient will return to residential at d/c if able. 6. History of Hepatitis C 7. Essential hypertension - continue Maxide 8. Labs today 9. PICC vs midline at ID's discretion FABRICIO SYED DO 01/23/2022 8:25 AM * Theo Lerma DO - 01/22/2022 6:47 PM EDT Images from the original note were not included. [facility] Office: [phone] Mikie Rodriguez DO, Theo Lerma DO, Stuart Natarajan DO, Harpal Tran DO, Prashanth Sadler MD, Deana Raza MD, Florencia Canela MD, Tess Ford MD, Yuliana Saenz MD, Leodan Mak MD, Marimar Ren MD, Fabricio Syed DO, Kyle Broussard DO, Juan Driver MD, Sophia Agustin DO, MD Melony, Jodi Bain MD, Palomo Drummond MD, Johann Rodriguez DO, Radha Avila MD, Alberto Perez MD, Teresa Quintero, MANUSCRIPT EDITOR, Tika Tapia, MANUSCRIPT EDITOR, Mary Meléndez, MANUSCRIPT EDITOR, Cathleen Moran, BLOW UP OPERATOR, Abdirahman Bella, MANUSCRIPT EDITOR, Leslie Rao, MANUSCRIPT EDITOR, Madalyn Julien, MANUSCRIPT EDITOR, Ro Bernard, MANUSCRIPT EDITOR, Carter Charles, MANUSCRIPT EDITOR, Mckayla Bertrand PA-C, Eli Fu, DNP, Razia Figueroa, DNP, Keri Walker, MANUSCRIPT EDITOR, Sherrie Rea, MANUSCRIPT EDITOR, Moon Waldrop, MANUSCRIPT EDITOR, Ethel Soto, MANUSCRIPT EDITOR, Jazzy Javier, MANUSCRIPT EDITOR, Shelli Menon MANUSCRIPT EDITOR IN-PATIENT SERVICE [facility] Progress Note 01/22/2022 6:57 PM Name: Tip Ansari Acct: [id number] Room: Day: 2 Admit Date: 01/20/2022 10:23 PM PCP: No primary care provider on file. Code Status: Full Code Subjective: C/C: Sepsis Interval History Status: Ankle pain better controlled No further drainage from wound Patient still feels somewhat anxious Reporting diaphoresis at night Data Base Updates: Afebrile Lmnahnh251 High Hemoglobin A1C5.6 Blood cultures remain negative Brief History: As documented in the medical record: Tip Ansari is a 42 y.o. Non- / non male who presents with No chief complainton file and is admitted to the hospital for the management of Sepsis (HCC). Patient presents to [place] emergency room from the local residential after he developed abrupt onset of chills and shaking and noting a wound to his left foot. Patient states that he woke up today feeling normal and as he was watching TV he had a sudden onset of feeling cold which then extended into course shaking and shivering despite covering up with a blanket and drinking warm fluids. Patient was a previous [facility] and was treated for MRSA [...] blood positive and lateral multifocal scattered nodular opacitiesin lung with cavitation which was presumed to [...] been using heroin He is back in residential for outstanding warrants and probation violations Past Medical History: has a past medical history of Abscess, Chronic hepatitis C without hepatic coma (HCC), COPD (chronic obstructive pulmonary disease) (HCC), Depression, and Drug addiction (HCC). Social History: reports that he has quit smoking. He has never used smokeless tobacco. He reports current drug use. Drugs: Cocaine, Opiates , Marijuana (Dixon), and Methamphetamines (Crystal Meth). Hereports that he does not drink alcohol. Family [...] Results Component Value Date PHART 7.380 12/16/2020 RUG8GNG 44.5 12/16/2020 PO2ART 94.4 12/16/2020 SUG8PFM 25.7 12/16/2020 NBEA NOT REPORTED 12/16/2020 PBEA 0.3 12/16/2020 [id number] 97.1 12/16/2020 FIO2 28 12/16/2020 Lab Results [...] PODIATRY Theo Lerma DO 01/22/2022 6:57 PM * Marisol Andrea MD - 01/22/2022 5:00 PM EDT Images from the original note were not included. [facility] - Infectious diseases evaluation admission date 01/20/2022 reason for consultation: Sepsis Vanco allergy Impression : Current: Vancomycin reaction- Tachycardia fever red neck syndrome in [place] Pulmonary septic emboli, MRSA -cavitations improved, nodules [...] and right shoulder. [Shoulder was a joint thatwas back Heroin use, hepatitis C Other: Discussion / summary of stay / plan of care Recommendations Patient did have a red neck syndrome infection with fever in [place] and again here Label allergic to vanco Left ankle MRI looking for a septic joint or tendinitis BC nathaniel albicans x 1, explains elevated procal despite stable appearance Asking for GIANFRANCO Start fluconazole 01/22 Keep doxy for pulm nodules - to help resolve past MRSA septic pulm emboli Infection Control Recommendations Talihina Precautions Contact Isolation Antimicrobial Stewardship Recommendations Simplification of therapy IV to oral conversion Coordination ofOutpatient Care: Estimated Length of IV antimicrobials: Patient will need Midline / picc Catheter Insertion: Patient will need SNF: Patient will need outpatient wound care: History of Present Illness: Initial history: Tip Boni Ansari is a 42 y.o.-year-old male sent to patient from residential because of rigors and fever as well as the left foot wound that seems to have started suddenly in residential Recently seen 12/2021 by me ALVES for [...] infusion site redness as well as redness overthe neck and face fever hotness tachycardia, most [...] Acid, Whole Blood3.3 High Sed Rate58 High Tdqvnfbqahzfb01.47 High Micro: BC One f two, 01/21 [...] use: Yes Types: Cocaine, Opiates , Marijuana (Dixon), Methamphetamines (Crystal Meth) Comment: quit heroin Nov [...] Friends and Family: Not on file Attends Mu-Ism Services: Not on file Active Member of [...] Andrea MD Office: Perfect serve / office [phone] * Erin Stoncheck, SELF PAY COLLECTOR - 01/22/2022 4:10 PM EDT Physical Therapy Facility/Department: [facility] Daily Treatment Note NAME: [...] HR due to pathology, 119-133 bpm, RN aw are and stated he can amb as tolerated watching heart rate spikes. presents with decreased activitytolerance and inactivity with further medical management pending. [...] worn out , 150 ft x2 with a5 minute seated rest break and VS taken [...] Code Treatment Minutes: 54 Minutes Erin Rodrigues SELF PAY COLLECTOR * Mckayla Vela, OT - 01/22/2022 2:21 PM EDT Images from the original note were not included. Occupational Therapy [facility] Occupational Therapy Not Seen Note DATE: 01/22/2022 NAME: Tip Ansari : 1980 Patient not seen this date for Occupational Therapy due to: Patient independent with ADLs and functional tasks with no acute OT needs. Will defer OT evaluationat this time. Please reorder OT if future needs arise. Next Scheduled Treatment: N/A * Ashley Crane RN - 01/21/2022 5:08 PM EDT MRI screening check list completed and faxed to MRI. * Nilsa Calderon RD, GELY - 01/21/2022 4:11 PM EDT Comprehensive Nutrition Assessment Type and Reason for [...] loss Fluid Accumulation: No significant fluid accumulation Repairer Recreational Vehicle Strength: Not Performed Estimated Daily Nutrient Needs: [...] kg) (12/13/21 bed scale per chart review) [place] Body Weight: 178 lbs; % [place] Body Weight 90.4 % BMI: 21.8 BMI [...] Discharge Planning: Too soon to determine Contact: [phone] * Liz Rose, PT - 01/21/2022 3:35 PM EDT Physical Therapy Facility/Department: [facility] Initial Assessment NAME: Tip Ansari : [...] Ambulation Assistance: Independent Transfer Assistance: Independent Active Routing Equipment Tender: No Cognition Cognition Overall Cognitive Status: WNL [...] limited to within the room due to sherrif request as pt out of handcuffs Balance [...] Treatment Minutes: 13 Minutes Liz Rose PT * Emily oLckhart RP - 01/21/2022 1:39 PM EDT [facility] Pharmacokinetic Monitoring Service - Vancomycin Tip [...] consult, Emily Lockhart RPH 01/21/2022 1:33 PM * Theo Lerma DO - 01/21/2022 1:15 PM EDT Images from the original note were not included. [facility] Office: [phone] Mikie Rodriguez DO, Theo Lerma DO, Stuart Natarajan DO, Harpal Tran DO, Prashanth Sadler MD, Deana Raza MD, Florencia Canela MD, Tess Ford MD, Yuliana Saenz MD, Leodan Mak MD, Marimar Ren MD, Fabricio Syed DO, Kyle Broussard DO, Juan Driver MD, Sophia Agustin DO, MD Melony, Jodi Bain MD, Palomo Drummond MD, Johann Rodriguez DO, Radha Avila MD, Alberto Perez MD, Teresa Quintero, PABLO, Tika aTpia, PABLO, Mary Meléndez, PABLO, Cathleen Moran, CHANTALE, Abdirahman Bella, PABLO, Leslie Rao, PABLO, Madalyn Julien, PABLO, Ro Bernard, PABLO, Carter Charles, PABLO, Mckayla Bertrand PA-C, Eli Fu, FÉLIX, Razia Figueroa, FÉLIX, Keri Walker, PABLO, Sherrie Rea, PABLO, Moon Waldrop, PABLO, Ethel Soto, PABLO, Jazzy Javier, PABLO, Shelli Menon CNP IN-PATIENT SERVICE [facility] Progress Note 01/21/2022 1:33 PM Name: Tip Ansari Acct: [id number] Room: IP Day: 1 Admit Date: 01/20/2022 10:23 PM PCP: No primary care provider on file. Code Status: Full Code Subjective: C/C: Sepsis Interval History Status: Not much change Still reporting ankle pain Not sleeping Feels anxious Data Base Updates: Patient has been afebrile Nuwrvnw560 High mg/dL OAU68kl/dL CREATININE0.73mg/dL Calcium8.6mg/dL Nfzela481actn/L Potassium3.9 Lactic Acid, Whole Blood3.3 High Sed Rate58 High Ankle x-ray: Impression: 1. Soft tissue swelling along the heel of the left foot. No evidence of osteomyelitis. Blood cultures negative Specimen Source: Blood Specimen Description.BLOOD Special Armxjwjf4PF R WRIST CultureNO GROWTH 12 HOURS Brief History: As documented in the medical record: Tip Ansari is a 42 y.o. Non- / non male who presents with No chief complainton file and is admitted to the hospital for the management of Sepsis (HCC). Patient presents to [place] emergency room from the local residential after he developed abrupt onset of chills and shaking and noting a wound to his left foot. Patient states that he woke up today feeling normal and as he was watching TV he had a sudden onset of feeling cold which then extended into course shaking and shivering despite covering up with a blanket and drinking warm fluids. Patient was a previous hospital [facility] from [facility] and was treated for MRSA bacteremia with [...] blood positive and lateral multifocal scattered nodular opacitiesin lung with cavitation which was presumed to [...] been using heroin He is back in residential for outstanding warrants and probation violations Past Medical History: has a past medical history of Abscess, Chronic hepatitis C without hepatic coma (HCC), COPD (chronic obstructive pulmonary disease) (HCC), Depression, and Drug addiction (HCC). Social History: reports that he has quit smoking. He has never used smokeless tobacco. He reports current drug use. Drugs: Cocaine, Opiates , Marijuana (Dixon), and Methamphetamines (Crystal Meth). Hereports that he does not drink alcohol. Family [...] Results Component Value Date PHART 7.380 12/16/2020 GPE5FPT 44.5 12/16/2020 PO2ART 94.4 12/16/2020 FJO7KVR 25.7 12/16/2020 NBEA NOT REPORTED 12/16/2020 PBEA 0.3 12/16/2020 [id number] 97.1 12/16/2020 FIO2 28 12/16/2020 Lab Results [...] DO 01/21/2022 1:33 PM documented [facility] Phone: 1(886) 452-270503-22-2022 Hospital Discharge instructions* Discharge Instr - CARLINE* Kyle Broussard DO - 01/30/2022 1:44 PM EDT Continuity of Care Form Patient Name: Tip Ansari : 1980 Admit date: 01/20/2022 Discharge date: Code Status Order: Full Code Advance Directives: Admitting Physician: Fabricio Syed DO PCP: No primary care provider on file. Discharging Nurse: Discharging Hospital Unit/Room#: Discharging Unit Phone Number: Emergency Contact: Extended Emergency Contact Information Primary Emergency Contact: Alisa Ansari Address: [place] [id number] Relation: Parent Secondary Emergency Contact: jaida greenberg Mobile Relation: Aunt/Uncle Past Surgical History: Past Surgical History: Procedure Laterality Date ABSCESS DRAINAGE Left 2019 arm APPENDECTOMY FINGER SURGERY Right 5 th finger tendon repair FOOT DEBRIDEMENT Left 01/26/2022 INCISION AND DRAINAGE, BONE LEFT CALCANEOUS performed by Tip Grewal DPM at [facility] OR FOOT SURGERY Left 01/26/2022 INCISION AND DRAINAGE, BONE LEFT CALCANEOUS (Left Foot) PICC INSERTION VASCULAR ACCESS TEAM 01/25/2022 TYMPANOSTOMY TUBE PLACEMENT Bilateral Immunization History: There is no immunization history on file for this patient. Active Problems: Patient Active Problem List Diagnosis Code Septic embolism ([facility]) I76 Heroin abuse ([facility]) F11.10 Hepatitis C virus infection without hepatic coma B19.20 MRSA bacteremia R78.81, B95.62 Acute respiratory failure with hypoxia ([facility]) J96.01 Moderate protein-calorie malnutrition ([facility]) E44.0 Bloody diarrhea R19.7 Anemia D64.9 Hypokalemia E87.6 Right-sided endocarditis due to Staphylococcus aureus I33.0, 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[facility]) M00.061 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 Moderate tricuspid regurgitation I07.1 Hyperkalemia E87.5 Endocarditis I38 Sepsis ([facility]) A41.9 Staphylococcal arthritis of left ankle ([facility]) M00.072 Hyperglycemia R73.9 Sepsis due to Nathaniel species without acute organ dysfunction ([facility]) B37.7, R65.20 Sinus tachycardia R00.0 Septic bursitis of Achilles M71.10 Acute osteomyelitis of left calcaneus ([facility]) M86.172 Opiate withdrawal ([facility]) F11.23 Acute hematogenous osteomyelitis of left ankle ([facility]) M86.072 Isolation/Infection: Isolation Contact Patient Infection Status [...] (79.2 kg) Mental Status: {IP PT MENTAL STATUS:10909} IV Access: { CARLINE IV ACCESS:658310880} Nursing Mobility/ADLs: Walking {CHP DME ADLs:788675374} Transfer {CHP DME ADLs:337793550} Bathing {CHP DME ADLs:980376941} Dressing {CHP DME ADLs:168002105} Toileting {CHP DME ADLs:435197615} Feeding {CHP DME ADLs:385917305} Wood Technologist {CHP DME ADLs:300986929} Med Delivery { CARLINE MED Delivery:395574336} Wound Care Documentation and Therapy: Wound 01/20/22 [...] Bladder: {YES / NO:} Urinary Catheter: {Urinary Catheter:248518711} Colostomy/Ileostomy/Ileal Conduit: {YES / NO:} Date of Last BM: Intake/Output Summary (Last 24 hours) at 01/30/2022 1344 Last data filed at 01/30/2022 1020 Gross per 24 hour Intake 540 ml Output 3480 ml Net -2940 ml I/O last 3 completed shifts: In: 2897 [P.O.:1620; I.V.:927; IV Piggyback:350] Out: 4475 [Urine:4475] Safety Concerns: { CARLINE Safety Concerns:094372195} Impairments/Disabilities: { CARLINE Impairments/Disabilities:034329337} Nutrition Therapy: Current Nutrition Therapy: { CARLINE Diet List:117942128} Routes of Feeding: {P DME Other Feedings:231041166} Liquids: {Clamp Operator liquid thickness:34260} Daily Fluid Restriction: {CHP DME Yes amt example:173044550} Last Modified Barium Swallow with Video (Video Swallowing Test): {Done Not Done Date:} Treatments at the Time of Hospital Discharge: Respiratory Treatments: Oxygen Therapy: {Therapy; copd oxygen:39267} Ventilator: { CC Vent List:026805122} Rehab Therapies: {THERAPEUTIC INTERVENTION:0782204872} Weight Bearing Status/Restrictions: { CC Weight Bearin} Other Medical Equipment (for information only, NOT a DME order): {EQUIPMENT:458385382} Other Treatments: Patient's personal belongings (please select all that are sent with patient): {CHP DME Belongings:720963339} RN SIGNATURE: {Esignature:885691020} CASE MANAGEMENT/SOCIAL WORK SECTION Inpatient Status Date: Readmission Risk Assessment Score: Readmission Risk Risk of Unplanned Readmission: 22 Discharging to Facility/ Agency Name: Address: Phone: Fax: Dialysis Facility (if applicable) Name: Address: Dialysis Schedule: Phone: Fax: Filter Tank Tender Helper/Jalousies Installer signature: {Esignature:062691042} PHYSICIAN SECTION Prognosis: Good Condition at Discharge: [...] and that he requires Home Care for days. Update Admission H&P: No change in H&P PHYSICIAN SIGNATURE: * Additional Instructions* Tom White, DENISE - 01/26/2022 Images from the original note [...] take the non-prescription medication that you normally takefor aches and pains You may resume your [...] schedule or confirm your appointment. Call your Assistant Business Manager office if you have any questions or concerns. documented in this [employer]Tanium Phone: 1(424) 690-553903-02-2022 Hospital Discharge instructions* Instructions* Jessica Villaseñor MD - 01/10/2022 Discussed results with patient. He has no intention of hurting self. We discussed patient going to drug rehab. Patient has no primary care thus was referred to Dr. More. Patient is also continue going to [facility] for his vancomycin injection weekly. documented in this [employer] Phone: [phone]) 502-863402-09-2022 History of Present illness Narrative* Christopher Moss RN - 12/20/2021 1:54 PM EST Patient to IR for right shoulder aspirate. JR PA and GL/HANH RTs at bedside. Site prepped and draped, area numbed with lidocaine. Access obtained and scant amount red fluid obtained by lavage. Specimen to be sent to lab by headline writer. Access removed and band aid placed to site. Patient tolerated well and taken to IR holding area awaiting transport. * Marisol Andrea MD - 12/20/2021 12:50 PM EST Images from the original note were not included. [facility] - Infectious diseases evaluation admission date [...] 45.9 anticipate 6 weeks iv Ab at [place] Due to ongoing drug use, dalbavancin weekly x 2, then will need to repeat, vs FU w po doxy FU outpt Need 2 BC in [address] chest in a month Infection Control Recommendations Talihina Precautions Contact Isolation Antimicrobial Stewardship Recommendations Simplification of therapy Targeted therapy PK dosing Coordination ofOutpatient Care: Estimated Length of IV antimicrobials: Patient will need Midline / picc Catheter Insertion: Patient will need SNF: Patient will need outpatient wound care: History of Present Illness: Initial history: Tip Ansari is a 41 y.o.-year-old male sent from another hospital because of pulmonary septicemboli, he is a heroin user Went to [facility] with shortness of breath and fever, hypoxic started on oxygen. And blood in stoolsw abd pain. CT 12/11 shows multifocal nodular [...] with right-sided PICC line. C T scan [facility] 12/11 suggestive of multifocal septic emboli with [...] use: Yes Types: Cocaine, Opiates , Marijuana (Dixon), Methamphetamines (Crystal Meth) Comment: quit heroin Nov [...] Friends and Family: Not on file Attends Mu-Ism Services: Not on file Active Member of [...] by contextual diversion. Marisol Andrea, Infectious Diseases * Liz Rose, PT - 12/20/2021 10:00 AM EST Images from the original note were not included. Physical Therapy Physical Therapy Cancel Note DATE: 12/20/2021 NAME: Tip Ansari : 1980 Patient not seen this date for Physical Therapy due to:Tip Ansari refused PT Patient Declined: stating had a bad night, do not return today . PT will attempt at later date * Kwabena Ashraf, MIAN - CORRECTIONAL MEDICINE PHYSICIAN - 12/20/2021 9:17 AM EST Images from the original note were not included. [facility] Super[facility] Progress Note Date: 12/20/2021 Patient name: Tip [...] while caught snoring drugs in room per steel heater of Systems Medications: Scheduled Meds: [START ON [...] 16 Ht 6' 1 (1.854 m) Wt 172lb 3.2 oz (78.1 kg) SpO2 96% BMI [...] , please call back with any concerns [place] [facility] Super[facility]. [phone] * Alexei Mendoza [facility] - 12/20/2021 8:54 AM EST [facility] Pharmacokinetic Monitoring Service - Vancomycin Consulting [...] consult, Alexei Mendoza RPH 12/20/2021 8:49 AM * Nilsa Calderon RD, LD - 12/19/2021 3:18 PM EST Comprehensive Nutrition Assessment Type and Reason for [...] loss Fluid Accumulation: No significant fluid accumulation Repairer Recreational Vehicle Strength: Not Performed Estimated Daily Nutrient Needs: Energy (kcal): 25-28 kcal/kg = 3543-4380 kcals/day; Weight Used for Energy Requirements: Current [...] lb (85.7 kg) (05/2021 per chart review) [place] Body Weight: 184 lbs; % [place] Body Weight 93.6 % BMI: 22.7 BMI [...] Discharge Planning: Too soon to determine Contact: [phone] * Liz Rose PT - 12/19/2021 1:35 PM EST Physical Therapy Facility/Department: [facility] RENAL//MED SURG Daily Treatment Note NAME: [...] improved activity tolerance using pacing and breathing strategiesas well and decreased distance. Patient Diagnosis(es): There [...] Restrictions/Precautions Restrictions/Precautions: Fall Risk,Up as Tolerated,General Precautions,Contact Precautions,Cardiac(monitor vitals 2/2 increased HR with activity) Required [...] functional acivity, monitioring HR and taking pulse, breathingand resting when appropriate with good understanding. Pt [...] Treatment Minutes: 28 Minutes Liz Rose PT * Kwabena Ashraf, MIAN - CORRECTIONAL MEDICINE PHYSICIAN - 12/19/2021 8:51 AM EST Images from the original note were not included. [facility] Supervisor Progress Note Date: 12/19/2021 Patient name: Tip Ansari Date of admission: 12/13/2021 6:34 PM Date of : 1980 PCP: No primary care provider on file. Reason for Admission: Septic embolism (HCC) [I76] Subjective: Clinical Changes /Abnormalities: Seen and examined , complains of insomnia , no acute CV issues/concerns overnight. Labs, vitals, & tele reviewed. GIANFRANCO from Saturday showing mobile area on tricuspidvalve. Sinus tachy at 129 on monitor Review [...] on echo after ATB course as OP [place] [facility] Super[facility]. [phone] * Marisol Andrea MD - 12/19/2021 8:23 AM EST Images from the original note were not included. [facility] - Infectious diseases evaluation admission date [...] dry tap. They recommended IR guided aspiration underfluoro scopy for continued concern So far BC neg since 12/17 Improving CRP 56-> 45.9 anticipate 6 weeks iv Ab at DC Will discuss the option of the at the dalbavancin weekly for better compliance Daptomycin cannot be used as he had septic pulmonary emboli Infection Control Recommendations Talihina Precautions Contact Isolation Antimicrobial Stewardship Recommendations Simplification of therapy Targeted therapy PK dosing Coordination ofOutpatient Care: Estimated Length of IV antimicrobials: Patient will need Midline / picc Catheter Insertion: Patient will need SNF: Patient will need outpatient wound care: History of Present Illness: Initial history: Tip Ansari is a 41 y.o.-year-old male sent from another hospital because of pulmonary septicemboli, he is a heroin user Went to [facility] with shortness of breath and fever, hypoxic started on oxygen. And blood in stoolsw abd pain. CT 12/11 shows multifocal nodular [...] Micro: Blood culture 12/13 X 2 MRSA /: MRSA x 2 12/18 shows no growth so far. Imaging: CXR 12/19 Scattered pulmonary infiltrates seen with right-sided PICC line. C T scan [facility] 12/11 suggestive of multifocal septic emboli with [...] use: Yes Types: Cocaine, Opiates , Marijuana (Dixon), Methamphetamines (Crystal Meth) Comment: quit heroin Nov [...] Friends and Family: Not on file Attends Mu-Ism Services: Not on file Active Member of [...] Internal Medicine Resident, PGY-1 Infectious Disease Service, [facility]. I have discussed the care of the patient, including pertinent history and exam findings, with the resident. I have seen and examined the patient and the hall elements of all parts of the encounter have been performed by me. I agree with the assessment, plan and orders as documented by the resident. Marisol Andrea, Infectious Diseases * Mckayla Bertrand PA-C - 12/19/2021 8:19 AM EST Images from the original note were not included. [facility] Office: [phone] Mikie Rodriguez DO, Theo Lerma DO, Stuart Natarajan DO, Harpal Tran DO, Prashanth Sadler MD, Deana Raza MD, Florencia Canela MD, Tess Ford MD, Yuliana Saenz MD, Leodan Mak MD, Marimar Ren MD, Fabricio Syed DO, Kyle Broussard DO, Juan Driver MD, Sophia Agustin DO, MD Melony, Jodi Bain MD, Palomo Drummond MD, Radha Avila MD, Alberto Perez MD, Teresa Quintero, MANUSCRIPT EDITOR, Tika Tapia MANUSCRIPT EDITOR, Mary Meléndez CNP, Cathleen Moran, BLOW UP OPERATOR, Abdirahman Bella, PABLO, Leslie Rao MANUSCRIPT EDITOR, Madalyn Dixon, MANUSCRIPT EDITOR, Ro Bernard, MANUSCRIPT EDITOR, Carter Charles, MANUSCRIPT EDITOR, Mckayla Bertrand PA-C, Eli Fu DNP, Razia Figueroa DNP, Keri Walker MANUSCRIPT EDITOR, Sherrie Rea MANUSCRIPT EDITOR, Moon Waldrop MANUSCRIPT EDITOR, Ethel Soto MANUSCRIPT EDITOR, Jazzy Javier, MANUSCRIPT EDITOR, Shelli Menon, MANUSCRIPT EDITOR [facility] IN-PATIENT SERVICE [facility] Progress Note 12/19/2021 8:19 AM Name: Tip Ansari Acct: [id number] Room: [facility] Day: 6 Admit Date: 12/13/2021 6:34 PM [...] with weakness. He was directly admitted from [facility] Dec 13 for the management of Septic embolism (HCC). Pt has used Heroin intermittently several years Presented to [facility] ED 12/11 with 2 day hx of [...] drug use. Drugs: Cocaine, Opiates , Marijuana (Dixon), and Methamphetamines (Crystal Meth). Hereports that he does not drink alcohol. Family [...] Results Component Value Date PHART 7.380 12/16/2020 [id number] 44.5 12/16/2020 PO2ART 94.4 12/16/2020 [id number] 25.7 12/16/2020 NBEA NOT REPORTED 12/16/2020 PBEA 0.3 12/16/2020 [id number] 97.1 12/16/2020 FIO2 28 12/16/2020 Lab Results [...] C -Referral to GI on discharge. Mckayla Bertrand PA-C 12/19/2021 8:19 AM Associated attestation - [...] plan of treatment is as below and thefinal version is my approved version of the [...] seen. Mild MR noted. Calcium8.4 Low mg/dL [id number] Low mmol/L Potassium5.4 High Follow-up chest x-ray: [...] provider on file. Notify PCP of discharge * Jaida Pope OT - 12/18/2021 4:44 PM EST Occupational Therapy Occupational Therapy Initial Assessment Date: [...] Good Integration of EC & Ax Pacing duringall tasks / activities. Short term goal 2: Pt will participate in UB / LB ADLs with Mod I while maintaining Good Balance. Short term goal 3: Pt will participate in Dynamic Standing Tolerance (with Good balance, 15-20 minutes) during functional / leisure task. Short term goal 4: Pt will participate in Item Retrieval and Transport (of everyday items) with Brandi with Good Safety Awareness. Therapy Time Individual Concurrent Group Co-treatment Time In 1537 Time Out 1600 Minutes 23 Timed Code Treatment Minutes: 15 Minutes (ADL) BREE Balderrama, TIFFANYR/L * Liz Rose, PT - 12/18/2021 1:25 PM EST Physical Therapy Facility/Department: [facility]MED SURG Daily Treatment Note NAME: Tip Ansari : 1980 Date of Service: 12/18/2021 No chief complaint on file. Weakness, chest pain, shortness of breath Tip Ansari is a 41 y.o. male who presents with weakness. Pt was admitted from [facility] Dec 13 for the management of Septic [...] up ad gladys and decline further activity stateseager to discharge Patient Diagnosis(es): There were no [...] Group Co-treatment Time In 810 Time Out 08 Minutes 27 Timed Code Treatment Minutes: 27 Minutes Liz Rose PT * Marimar Ren MD - 12/18/2021 11:45 AM EST Images from the original note were not included. [facility] Office: [phone] Mikie Rodriguez DO, Theo Lerma DO, Stuart Natarajan DO, Harpal Tran DO, Prashanth Sadler MD, Deana Raza MD, Florencia Canela MD, Tess Ford MD, Yuliana Saenz MD, Leodan Mak MD, Marimar Ren MD, Fabricio Syed DO, Kyle Broussard DO, Juan Driver MD, Sophia Agustin DO, MD Melony, Jodi Bain MD, Palomo Drummond MD, Radha Avila MD, Alberto Perez MD, Teresa Quintero, MANUSCRIPT EDITOR, Tika Tapia, MANUSCRIPT EDITOR, Mary Meléndez, MANUSCRIPT EDITOR, Cathleen Moran, [facility], Abdirahman Bella, MANUSCRIPT EDITOR, Leslie Rao, MANUSCRIPT EDITOR, Madalyn Dixon, MANUSCRIPT EDITOR, Ro Bernard, MANUSCRIPT EDITOR, Carter Charles, MANUSCRIPT EDITOR, Mckayla Bertrand PA-C, Eli Fu, DNP, Razia Figueroa, DNP, Keri Walker, MANUSCRIPT EDITOR, Sherrie Rea, MANUSCRIPT EDITOR, Moon Waldrop, MANUSCRIPT EDITOR, Ethel Soto, MANUSCRIPT EDITOR, Jazzy Javier, MANUSCRIPT EDITOR, Shelli Menon, MANUSCRIPT EDITOR [facility] IN-PATIENT SERVICE [facility] Progress Note 12/18/2021 12:26 PM Name: Tip Ansari Acct: [id number] Room: [address] [place] [address] Day: 5 Admit Date: 12/13/2021 6:34 PM [...] with weakness. He was directly admitted from [facility] Dec 13 for the management of Septic embolism (HCC). Pt has used Heroin intermittently several years Presented to [facility] ED 12/11 with 2 day hx of [...] drug use. Drugs: Cocaine, Opiates , Marijuana (Dixon), and Methamphetamines (Crystal Meth). Hereports that he does not drink alcohol. Family [...] No results for input(s): PROT, LABALBU, LABA1C, Q3MIWSQ, U1UQRTK, FT4, TSH, AST, ALT, LDH, GGT, ALKPHOS, LABGGT, BILITOT, BILIDIR, AMMONIA, AMYLASE, LIPASE, LACTATE, CHOL, HDL, LDLCHOLESTEROL, CHOLHDLRATIO, TRIG, VLDL, ZWF64EN, PHENYTOIN, PHENYF, URICACID, POCGLU in the last 72 hours. ABG: Lab Results Component Value Date PHART 7.380 12/16/2020 XXF2PTB 44.5 12/16/2020 PO2ART 94.4 12/16/2020 NVE8OTH 25.7 12/16/2020 NBEA NOT REPORTED 12/16/2020 PBEA 0.3 12/16/2020 Z2WVVDDU 97.1 12/16/2020 FIO2 28 12/16/2020 Lab Results [...] will give a bolus of normal saline andmonitor 9. corporate training manager to help with discharge planning for outpatient IV antibiotics, can be discharged once that is arranged Marimar Ren MD 12/18/2021 12:26 PM * Kwabena Ashraf, MIAN - CORRECTIONAL MEDICINE PHYSICIAN - 12/18/2021 10:17 AM EST Images from the original note were not included. [facility] Super[facility] Progress Note Date: 12/18/2021 Patient name: Tip Ansari Date of admission: 12/13/2021 6:34 PM Date of : 1980 PCP: No primary care provider on file. Reason for Admission: Septic embolism (HCC) [I76] Subjective: Clinical Changes /Abnormalities: Seen and examined , complains of insomnia , no acute CV issues/concerns overnight. Labs, vitals, & tele reviewed. GIANFRANCO from Saturday showing mobile area on tricuspidvalve. Sinus tachy at 116 on monitor Review [...] Resp 16 Ht 6' 1 (1.854 m) Wt172 lb 3.2 oz (78.1 kg) SpO2 98% [...] on echo after ATB course as OP [place] [facility]. [phone] * Marisol Andrea MD - 12/18/2021 9:24 AM EST Images from the original note were not included. [facility] - Infectious diseases evaluation admission date [...] weekly vs dalbavancin weekly Infection Control Recommendations Talihina Precautions Contact Isolation Antimicrobial Stewardship Recommendations Simplification of therapy Targeted therapy PK dosing Coordination ofOutpatient Care: Estimated Length of IV antimicrobials: Patient will need Midline / picc Catheter Insertion: Patient will need SNF: Patient will need outpatient wound care: History of Present Illness: Initial history: Tip Ansari is a 41 y.o.-year-old male sent from another hospital because of pulmonary septicemboli, he is a heroin user Went to [facility] with shortness of breath and fever, hypoxic started on oxygen. And blood in stoolsw abd pain. CT 12/11 shows multifocal nodular [...] Micro: Blood culture 2/2 X 2 MRSA /: MRSA x 2 12/18 pending Imaging: C T scan [facility] 12/11 suggestive of multifocal septic emboli with [...] use: Yes Types: Cocaine, Opiates , Marijuana (Dixon), Methamphetamines (Crystal Meth) Comment: quit heroin Nov [...] Friends and Family: Not on file Attends Mu-Ism Services: Not on file Active Member of [...] Internal Medicine Resident, PGY-1 Infectious Disease Service, [facility]. I have discussed the care of the patient, including pertinent history and exam findings, with the resident. I have seen and examined the patient and the hall elements of all parts of the encounter have been performed by me. I agree with the assessment, plan and orders as documented by the resident. Marisol Andrea, Infectious Diseases * Nhung García, - 12/18/2021 4:33 AM EST Progress Note Patient: Tip Ansari Date of [...] the knee. EHL/FHL/TA/GSC motor intact. Sensation intact tosural/saph/SPN/DPN distribution. DP/PT pulses 2+. LUE: 30-40 deg [...] García, PGY-2 Orthopedic Surgery 4:33 AM 12/18/2021 * Carter Cormier [facility] - 12/18/2021 2:36 AM EST [facility] Pharmacokinetic Monitoring Service - Vancomycin Consulting [...] consult, Carter Cormier RPH 12/18/2021 2:29 AM * Tariq Dumont MD - 12/17/2021 2:36 PM EST Images from the original note were not included. [facility] - Infectious diseases evaluation Progress Note admission date 12/13/2021 reason for consultation: Septic pulmonary emboli Impression : Current: Pulmonary septic emboli with cavitary pneumonia MRSA septicemia Heroin use Chronic hepC Severe Allergy to PNC Discussion / summary of stay / plan of care Recommendations Continue Vanco for MRSA bacteremia GIANFRANCO to look for vegetations Repeat blood culture still negative Infection Control Recommendations Talihina Precautions Contact Isolation Antimicrobial Stewardship Recommendations Simplification of therapy Targeted therapy PK dosing Coordination ofOutpatient Care: Estimated Length of IV antimicrobials: Patient will need Midline / picc Catheter Insertion: Patient will need SNF: Patient will need outpatient wound care: History of Present Illness: INITIAL HISTORY: Tip Ansari is a 41 y.o.-year-old male sent from another hospital because of pulmonary septicemboli, he is a heroin user Went to [facility] with shortness of breath and fever, hypoxic started on oxygen. And blood in stoolsw abd pain. CT 12/11 shows multifocal nodular [...] (37 C) Oral 100 16 95 % 2/ Walking, comfortable, ambulating without any lower back [...] wrist: No growth Imaging: C T scan [facility] 12/11 suggestive of multifocal septic emboli with [...] use: Yes Types: Cocaine, Opiates , Marijuana (Dixon), Methamphetamines (Crystal Meth) Comment: quit heroin Nov [...] Friends and Family: Not on file Attends Mu-Ism Services: Not on file Active Member of [...] meaningcan be extrapolated by contextual diversion. Tariq uDmont MD Office: Perfect serve / office [phone] * Elvia Peralta, [employer] - MANUSCRIPT EDITOR - 12/17/2021 8:57 AM EST Images from the original note were not included. [facility] Super[facility] Progress Note Date: 12/17/2021 Patient name: Tip [...] on echo after ATB course as OP [place] [facility] Super[facility]. [phone] * Main Balderas, DO - 12/17/2021 8:41 AM EST Orthopedic Progress Note Patient: Tip Ansari, 41 y.o. male Date of : 1980 Subjective: Patient seen and examined. No complaints or concerns. Joints that were aspirated yesterday feel much better today. Pain controlled on current regimen. No acute issues overnight. Denies fever, MTZ, CP,SOB, N/V. Has been NPO since midnight while [...] motion. Pain improved. EHL/FHL/TA/GSC motor intact. Sensation intactto sural/saph/SPN/DPN distribution. DP/PT pulses 2+. LUE: 30-40 [...] - Please reach out to ortho resident automation technologist with any questions - Follow up w/ Dr. Barajas as needed outpatient . * Marimar Ren MD - 12/17/2021 8:40 AM EST Images from the original note were not included. [facility] Office: [phone] Mikie Rodriguez DO, Theo Lerma DO, Stuart Natarajan DO, Harpal Tran DO, Prashanth Sadler MD, Deana Raza MD, Florencia Canela MD, Tess Ford MD, Yuliana Saenz MD, Leodan Mak MD, Marimar Ren MD, Fabricio Syed DO, Kyle Broussard DO, Juan Driver MD, Sophia Agustin DO, MD Melony, Jodi Bain MD, Palomo Drummond MD, Radha Avila MD, Alberto Perez MD, Teresa Quintero, MANUSCRIPT EDITOR, Tika Tapia, MANUSCRIPT EDITOR, Mary Meléndez, MANUSCRIPT EDITOR, Cathleen Moran, BLOW UP OPERATOR, Abdirahman Bella, MANUSCRIPT EDITOR, Leslie Rao, MANUSCRIPT EDITOR, Madalyn Dixon, MANUSCRIPT EDITOR, Ro Bernard, MANUSCRIPT EDITOR, Carter Charles, MANUSCRIPT EDITOR, Mckayla Bertrand, PANakitaC, Eli Fu, DNP, Razia Figueroa, DNP, Keri Walker, MANUSCRIPT EDITOR, Sherrie Rea, MANUSCRIPT EDITOR, Moon Waldrop, MANUSCRIPT EDITOR, Ethel Soto, MANUSCRIPT EDITOR, Jazzy Javier, MANUSCRIPT EDITOR, Shelli Menon, MANUSCRIPT EDITOR [facility] IN-PATIENT SERVICE [facility] Progress Note 12/17/2021 12:05 PM Name: Tip Ansari Acct: [id number] Room: 0316/0316-01 IP Day: 4 Admit Date: [...] with weakness. He was directly admitted from [facility] Dec 13 for the management of Septic embolism (HCC). Pt has used Heroin intermittently several years Presented to [facility] ED 12/11 with 2 day hx of [...] drug use. Drugs: Cocaine, Opiates , Marijuana (Dixon), and Methamphetamines (Crystal Meth). Hereports that he does not drink alcohol. Family [...] -1850 ml Labs: Hematology: Recent Labs 12/15/21 0514 12/16/21 0602 12/17/21 [...] Results Component Value Date PHART 7.380 12/16/2020 GOV8YVA 44.5 12/16/2020 PO2ART 94.4 12/16/2020 JAK2EYT 25.7 12/16/2020 NBEA NOT REPORTED 12/16/2020 PBEA 0.3 12/16/2020 [id number] 97.1 12/16/2020 FIO2 28 12/16/2020 Lab Results [...] GI 7. Substance abuse outpatient rehab 8. corporate training manager to help with discharge planning for outpatient IV antibiotics Marimar Ren MD 12/17/2021 12:05 PM * Tariq Dumont MD - 12/16/2021 8:44 PM EST Images from the original note were not included. [facility] - Infectious diseases evaluation admission date 12/13/2021 reason for consultation: Septic pulmonary emboli Impression : Current: Pulmonary septic emboli with cavitary pneumonia MRSA septicemia Heroin use Chronic hepC Allergy severe to PNC Other: Discussion / summary of stay / plan of care Recommendations Continue Vanco for MRSA bacteremia GIANFRANCO to look for vegetations Repeat blood culture still negative Infection Control Recommendations Talihina Precautions Contact Isolation Antimicrobial Stewardship Recommendations Simplification of therapy Targeted therapy PK dosing Coordination ofOutpatient Care: Estimated Length of IV antimicrobials: Patient will need Midline / picc Catheter Insertion: Patient will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
== END 2025-08-19 14:16 | disposition home or self-care (01) ==
LOC: LAB 14:24
PROVIDERS: PCP Family Medicine; Visit Provider Registered Nurse
DX: Z86.19 Personal history of other infectious and parasitic diseases (principal)
CPT/HCPCS: 36415; 86692; 86707; 87350; 87517

== ENCOUNTER 2025-09-10 14:59 | Outpatient (OUT) | payer OTHER, SELFPAY ==
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
--- OUTSIDE RECORDS SUMMARY | 2025-09-10 15:03 | XMS_ITS | Clinical Summary ---
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 Name Role Phone Brody Baxter MD Primary Care Provider [phone] Allergies Active AllergyReactionsCriticalityNoted DateCommentsPenicillinsAnaphylaxisHigh 03/16/20164242Euwmowtymv05/14/2022 Other reaction(s): Other (See Comments) Fever and hives chest - despite very slow infusion Medications MedicationSigDispense QuantityRefillsLast FilledStart DateEnd DateStatus Ventolin HFA 90 mcg/actuation inhaler INHALE 2 PUFFS BY MOUTH 4 TIMES DAILY08/09/2022ctive amoxicillin (Amoxil) 875 mg tablet Take 875 mg by mouth in the morning and at bedtime.11/12/2022ctive benzonatate (Tessalon) 100 mg capsule Take 100-200 mg by mouth.09/28/2022ctive benzonatate (Tessalon) 100 mg capsule 09/28/2022ctive Sublocade 100 mg/0.5 mL injection 10/29/2022ctive Sublocade 300 mg/1.5 mL injection 07/25/2022ctive buprenorphine-naloxone (Suboxone) 8-2 mg SL film 06/28/2022ctive buprenorphine-naloxone (Suboxone) 8-2 mg SL film 06/28/2022ctive dalbavancin (Dalvance) 500 mg injection Infuse 1,000 mg into a venous catheter.06/19/2022ctive fluconazole (Diflucan) 100 mg tablet 07/02/2022ctive ibuprofen 800 mg tablet Take 800 mg by mouth.09/28/2022ctive naloxone (Narcan) 4 mg/0.1 mL nasal spray 07/11/2022ctive predniSONE (Deltasone) 20 mg tablet Take 20 mg by mouth in the morning and at bedtime.08/08/2022ctive aspirin 81 mg EC tablet Take 81 mg by mouth in the morning.Active Active Problems ProblemNoted DateDiagnosed DateBack pain with left-sided /18/2025Acute hematogenous osteomyelitis of left ankle04/15/2023Tenosynovitis of left ankle 04/15/2023cute osteomyelitis of left /05/2023Staphylococcal arthritis of left ankle04/15/2023cute septic pulmonary embolism without acute cor rcmezzvai39/10/2022Elevated degwrelrgkitq22/10/2022IRS (systemic inflammatory response syndrome)06/20/2022chilles tendinitis of left lower sbaannjbl36/27/2022ellulitis of left lower ybbwgnmwk13/26/2022IVDU (intravenous drug user)05/06/2022piate ovchzzfrrp22/20/2022eptic fmgcgaun78/16/2022epsis due to Arielle species without acute organ /15/2022inus yhyarpyizre74/15/9163Hsxhrdcguyxqj55/14/3639Jzmwmv23/12/2022Endocarditis 12/30/2021Endocarditis of prosthetic tricuspid valve12/19/2021Hyperkalemia 12/19/2021Moderate tricuspid pbmlnentwwtyn96/08/2022taphylococcal arthritis of right knee12/19/2021ubacute right-sided infective oyikhrlejdvo37/05/2022cute waqagnhpibg86/03/2022cute respiratory failure with izrstqy9712/14/2021loody wuusojvt47/03/2022Moderate protein-calorie wnwehnrvitim80/03/2022MRSA bacteremia 12/14/2021Normocytic normochromic zkdmzl1112/14/2021eptic crztjoht27/31/2022 Abscess of arm, left01/28/2021levated C-reactive protein (CRP)01/28/2021hronic hepatitis C without hepatic coma01/28/2021Hepatitis C virus infection without hepatic coma01/28/2021Heroin abuse01/28/2021ower extremity edema01/28/2021 Family History Medical HistoryRelationNameCommentsTransient ischemic attackMaternal Grandfather Heart attackPaternal GrandfatherRelationNameStatusCommentsMaternal Grandfather Paternal GrandfatherDeceased Social History Tobacco UseTypesPacks/DayYears UsedDateSmoking Tobacco: FormerCigarettesQuit: 2019Smokeless Tobacco: Current Tobacco Cessation:Ready to Q uit: Not Asked; Counseling Given: Not Answered Comments:Vapes daily Alcohol UseStandard Drinks/WeekCommentsNever0 (1 standard drink = 0.6 oz pure alcohol)Humiliation, Afraid, Rape, and Kick questionnaireAnswerDate Recorded Within the last year, have you been afraid of your partner or ex-partner?No 04/16/2023Within the last year, have you been humiliated or emotionally abused in other ways by your partner or ex-partner?No04/16/2023Within the last year, have you been kicked, hit, slapped, or otherwise physically hurt by your partner or ex-partner?No04/16/2023Within the last year, have you been raped or forced to have any kind of sexual activity by your partner or ex-partner?No04/16/2023HQ-2 AnswerDate RecordedPatient Health Questionnaire-2 [id number] Safety & EnvironmentAnswerDate RecordedFear of Current or Ex-PartnerNot on file04/18/2024 Emotionally AbusedNot on file04/18/2024hysically AbusedNot on file04/18/2024 Sexually AbusedNot on file04/18/2024hysically or Sexually AbusedNot on file 04/18/2024Sex and Gender InformationValueDate RecordedSex Assigned at BirthMale 05/19/2025 1:42 PM EDTLegal PxzZvdb2305/09/2022 9:31 PM EDTGender IdentityMale 05/19/2025 1:42 PM EDTSexual OrientationHeterosexual or Cxsrgbkf88/09/2025 1:42 PM EDT Last Filed Vital Signs Vital SignReadingTime TakenCommentsBlood Rpaviquq282/8607 2:50 PM EDT Qzwuz6948/ 2:50 PM YIMAblkhejiyds49.8 ??C (96.5 ??F)05/09/2023 1:06 PM EDTRespiratory Hpps540105/09/2023 1:06 PM EDTOxygen Rrpwohxgqj394%05/28/2025 2:50 PM EDTInhaled Oxygen Concentration--Hpwnal96.2 kg (168 lb)05/28/2025 2:50 PM EDT Alfxeg959.4 cm (6' 1 )05/28/2025 2:50 PM EDTBody Mass Index22.16005/28/2025 2:50 PM EDT Plan of Treatment Health MaintenanceDue DateLast DoneCommentsDepression Iajeeyppz94/22/1994 Varicella Vaccines (1 of 2 - 13+ 2-dose series)1995Hepatitis B Vaccines (1 of 3 - 19+ 3-dose series), 04/16/2023, 04/16/2023 Pneumococcal Vaccine: Pediatrics (0 to 5 Years) and At-Risk Patients (6 to 64 Years) (1 of 2 - PCV)2001Adult Xikgjid5801/02/2004HPV Vaccines (1 - 3-dose SCDM series)2009COVID-19 Vaccine (1 - 2024- season)2025Influenza Vaccine (#1)2025Zoster Vaccines (1 of 2)2032HIB VaccinesAged OutNo longer eligible based on patient's age to complete this topicIPV VaccinesAged OutNo longer eligible based on patient's age to complete this topicMeningococcal B VaccineAged OutNo longer eligible based on patient's age to complete this topicMeningococcal VaccineAged OutNo longer eligible based on patient's age to complete this topicRotavirus VaccinesAged OutNo longer eligible based on patient's age to complete this topic Insurance Care Teams Team MemberRelationshipSpecialtyStart DateEnd Brody Baxter MD [address] [place] [address] PCP - GeneralFamily Medicine05/28/25
--- OUTSIDE RECORDS SUMMARY | 2025-09-10 15:03 | XMS_ITS | Patient Health Record ---
Author Organization The [facility] in [place] Address [address] [place] [address] Care Team Providers Care Game Operator Name Role Phone Nathanael Mccormack Primary Care Provider Allergies Allergen (clinical drug ingredient) Drug/Non Drug Allergy documented on EMR Reaction Allergy Type Onset Date Status PenicillinUnknownDrug AllergyActivevancomycinVancomycinRed Man SyndromeDrug AllergyActive Results Component Value Reference Range Notes BNP Reviewed date:06/17/2025 10:29:18 PM Interpretation: Performing Lab: Notes/Report: [facility] , NT Pro B Type Natriuretic Pept 64.0 <=450.0 pg /mL Performing Lab:see noteML - [facility] LBCBC AUTO DIFF Reviewed date:06/17/2025 10:29:18 PM Interpretation: Performing Lab: Notes/Report: [facility] ,White Blood Count5.04.0-11.0 10 3/uLRed Blood Count4.444.70-6.10 10 6/uL Woexsydbxb15.914.0-18.0 g/qIDiicyhsaxs13.642.0-54.0 %Mean Corpuscular Qwttlx56.2 80.0-94.0 fLMean Corpuscular Epcdeefcfe85.325.9-34.0 pgMean Corpuscular HGB Conc 35.129.9-35.2 g/dLRed Cell Distribution Width13.211.0-15.0 %Platelet Ikdar036 150-450 10 3/uLMean Platelet Volume9.29.5-13.5 fLNeutrophils Percent Auto66.7 43.0-75.0 %Lymphocytes Percent Auto21.620.5-60.0 %Monocytes Percent Auto8.71.7- 12.0 %Eosinophils Percent Auto2.20.9-7.0 %Basophils Percent Auto0.60.2-2.0 % Immature Granulocytes Pct Auto0.20.0-0.5 %Neutrophils Absolute Auto3.31.4-6.5 10 3/uLLymphocytes Absolute Auto1.11.2-3.8 10 3/uLMonocytes Absolute Auto0.40.3-0.8 10 3/uLEosinophils Absolute Auto0.10.0-0.7 10 3/uLBasophils Absolute Auto0.00.0- 0.1 10 3/uLImmature Granulocytes Abs Auto0.010.00-0.03 10 3/uLPerforming Lab:see noteML - [facility] LBFREE T3 Reviewed date:06/17/2025 10:29:18 PM Interpretation: Performing Lab: Notes/Report: [facility] ,Free T33.422.18-3.98 pg/mLPerforming Lab:see noteML - [facility] LB LIPID PROFILE Reviewed date:06/17/2025 10:29:18 PM Interpretation: Performing Lab: Notes/Report: [facility] ,Caueevqqhdgqp94<=150 mg/nHXfumnglagvn232<=200 mg/dLHDL Iuckhjcbdrh0049-66 mg/dL > or =60 mg/dl - LOW CARDIOVASCULAR RISK <40 mg/dl - HIGH CARDIOVASCULAR RISK LDL Cholesterol Ramytnliul06.2 >190 mg/dl VERY HIGH 160-189 mg/dl HIGH 130-159 mg/dl BORDERLINE HIGH 100-129 mg/dl NEAR OR ABOVE OPTIMAL <100 mg/dl OPTIMAL VLDL IFJYGCLQLZI26.8Chol HDL Ratio3.4 4.4 - 7.1 AVERAGE RISK 3.3 - 4.4 LOW RISK 7.1 - 11.0 MODERATE RISK >11.0 HIGH RISK Performing Lab:see noteML - [facility] LBPROF 14(COMP METB) Reviewed date:06/17/2025 10:29:18 PM Interpretation: Performing Lab: Notes/Report: [facility] ,Dqamfq219930-040 mmol/LPotassium4.53.5-5.1 mmol/HIajbiopu41835-336 mmol/LCarbon Vtdjqtk13.621.0-32.0 mmol/LAnion Gap13.9Stkdokw1360-980 mg/dLBlood Urea Nitrogen 13.07.0-18.0 mg/dLCreatinine0.950.70-1.30 mg/dLEstimated GFR ( Paulette>60 >=60 mL/min/1.73m 2Estimated GFR (Non- Denia>60>=60 mL/min/1.73m 2BUN Creatinine Ratio13.3Xyroobk1.38.5-10.1 mg/dLBilirubin Total0.80.2-1.0 mg/dL Aspartate Amino Ibjkmzwzwbh09125-83 U/LAlanine Pshlhawqsqimglus96098-46 U/L Alkaline Mublddiibgg9175-117 U/LTotal Protein7.46.4-8.2 g/dLAlbumin Level3.43.4- 5.0 g/dLGlobulin4.0Albumin Globulin Ratio0.9Performing Lab:see noteML - [facility] LBT4 Reviewed date:06/17/2025 10:29:18 PM Interpretation: Performing Lab: Notes/Report: [facility] ,T4 Ofsoiakqf38.704.50-12.10 ug/dLPerforming Lab:see noteML - [facility] LBTSH Reviewed date:06/17/2025 10:29:18 PM Interpretation: Performing Lab: Notes/Report: [facility] ,Thyroid Stimulating Hormone1.4350.358-3.740 uIU/mLPerforming Lab:see noteML - [facility] LBTroponin I High Sensitivity Reviewed date:06/17/2025 10:29:18 PM Interpretation: Performing Lab: Notes/Report: [facility] ,Troponin I High Sensitivity8.14.0-76.1 pg/mL WITH OTHER DIAGNOSTIC AND CLINICAL INFORMATION. NOTE: HIGH-SENSITIVITY TROPONIN ASSAY IS NOT INTENDED TO BE USED IN ISOLATION BUT SHOULD BE INTERPRETED IN CONJUNCTION HAS BEEN CONFIRMED THE DECISION THRESHOLD FOR [place] PERCENTILE OF cTnI DISTRIBUTION IN A REFERENCE POPULATION, 99TH PERCENTILE = 76.2 PG/ML REFERENCE LIMIT (URL) OF TROPONIN, DEFINED THE 99TH UNIVERSAL DEFINITION OF MYOCARDIAL INFARCTION. THE UPPER DIAGNOSIS. CUT-OFF POINTS HAVE BEEN ESTABLISHED BASED ON THE FOURTH Performing Lab:see note - [facility] LBFREE T3 Reviewed date:07/01/2025 04:49:07 PM Interpretation: Performing Lab: Notes/Report: [facility] ,Free T33.082.18-3.98 pg/mLPerforming Lab:see note - [facility] LB PROF 14(COMP METB) Reviewed date:07/01/2025 04:49:07 PM Interpretation: Performing Lab: Notes/Report: [facility] ,Usujnr758381-228 mmol/LPotassium4.13.5-5.1 mmol/LHhreqrzq19191-946 mmol/LCarbon Odrwpfv95.021.0-32.0 mmol/LAnion Gap11.5Gqsuxrz6189-590 mg/dLBlood Urea Nitrogen 10.07.0-18.0 mg/dLCreatinine0.970.70-1.30 mg/dLEstimated GFR ( Paulette>60 >=60 mL/min/1.73m 2Estimated GFR (Non- Denia>60>=60 mL/min/1.73m 2BUN Creatinine Ratio10.2Qyvuedr0.38.5-10.1 mg/dLBilirubin Total1.70.2-1.0 mg/dL Aspartate Amino Egiakfaplsi40465-61 U/LAlanine Qrtpdcmyueoxjqcw94223-34 U/L Alkaline Pqerwgapeii40967-738 U/LTotal Protein8.16.4-8.2 g/dLAlbumin Level3.7 3.4-5.0 g/dLGlobulin4.4Albumin Globulin Ratio0.8Performing Lab:see noteML - [facility] LBT4 Reviewed date:07/01/2025 04:49:07 PM Interpretation: Performing Lab: Notes/Report: [facility] ,T4 Mkgyyffmk65.304.50-12.10 ug/dLPerforming Lab:see note - [facility] LBTSH Reviewed date:07/01/2025 04:49:07 PM Interpretation: Performing Lab: Notes/Report: [facility] ,Thyroid Stimulating Hormone1.5390.358-3.740 uIU/mLPerforming Lab:see noteML - [facility] LBUS right upper quadrant Reviewed date:07/01/2025 12:52:52 PM Interpretation: Performing Lab: Notes/Report: Source Facility: [facility]-[address] [place] [address] Ultrasound Report Signed Patient: TIP CADENA MR#: [id number] : 1980 Acct:[id number] Age/Sex: 45 / M ADM Date: 07/01/25 Loc: US Attending Dr: Brody Mccormack M.D. Ordering Physician: Brody Mccormack M.D. Date of Service: 07/01/25 Procedure(s): US right upper quadrant Accession Number(s): [id number] cc: Brody Mccormack M.D. [place] [address] Patient Name: TIP CADENA MRN: [facility]:[id number] date: 1980 Sex: M Assigned Patient Location: US Current Patient Location: US Accession/Order Number: [id number] Exam Date: 07/01/2025 12:07 Report Date: 07/01/2025 [...] Sultana M.D. 07/01/2025 12:08 PM Dictation Location: [place] [address] Electronically authenticated by: [id number] Y Date: 07/01/2025 12:08 Dictated By: Jorge Sultana M.D. Signed By: 07/01/25 1211 DD/ 1208 TD/TT: Bowling Ball Finisher:CBC AUTO DIFF Reviewed date:07/19/2025 08:22:36 PM Interpretation: Performing Lab: Notes/Report: [facility] ,White Blood Count6.54.0-11.0 10 3/uLRed Blood Count4.674.70-6.10 10 6/uL Kratlpqdrk66.514.0-18.0 g/bYDwwwmzwazu84.942.0-54.0 %Mean Corpuscular Gimmuu50.7 80.0-94.0 fLMean Corpuscular Pdfsaxavvg72.025.9-34.0 pgMean Corpuscular HGB Conc 34.629.9-35.2 g/dLRed Cell Distribution Width12.511.0-15.0 %Platelet Ugupq160 150-450 10 3/uLMean Platelet Volume9.49.5-13.5 fLNeutrophils Percent Auto75.4 43.0-75.0 %Lymphocytes Percent Auto17.120.5-60.0 %Monocytes Percent Auto5.41.7- 12.0 %Eosinophils Percent Auto1.60.9-7.0 %Basophils Percent Auto0.30.2-2.0 % Immature Granulocytes Pct Auto0.20.0-0.5 %Neutrophils Absolute Auto4.91.4-6.5 10 3/uLLymphocytes Absolute Auto1.11.2-3.8 10 3/uLMonocytes Absolute Auto0.40.3-0.8 10 3/uLEosinophils Absolute Auto0.10.0-0.7 10 3/uLBasophils Absolute Auto0.00.0- 0.1 10 3/uLImmature Granulocytes Abs Auto0.010.00-0.03 10 3/uLPerforming Lab:see noteML - [facility] LBPROF 14(COMP METB) Reviewed date:07/19/2025 08:22:36 PM Interpretation: Performing Lab: Notes/Report: [facility] ,Ptukbw920594-482 mmol/LPotassium3.93.5-5.1 mmol/XJijfhtbp35536-750 mmol/LCarbon Ipbbvva64.321.0-32.0 mmol/LAnion Gap13.3Adrwypc2234-951 mg/dLBlood Urea Nitrogen 14.07.0-18.0 mg/dLCreatinine0.960.70-1.30 mg/dLEstimated GFR ( Paulette>60 >=60 mL/min/1.73m 2Estimated GFR (Non- Denia>60>=60 mL/min/1.73m 2BUN Creatinine Ratio14.9Jbikqxj7.28.5-10.1 mg/dLBilirubin Total1.10.2-1.0 mg/dL Aspartate Amino Bifnsknvrjb0279-79 U/LAlanine Rhnzuraborzlnspw83623-65 U/L Alkaline Tfklrmxxwpk9087-880 U/LTotal Protein8.26.4-8.2 g/dLAlbumin Level3.93.4- 5.0 g/dLGlobulin4.3Albumin Globulin Ratio0.9Performing Lab:see note - [facility] LBHIV Ab/p24 Ag with Reflex Reviewed date:07/21/2025 12:52:58 PM Interpretation: Performing Lab: Notes/Report: [facility] ,HIV Ab/p24 Ag ScreenNon ReactiveNon Reactive detected. There is no laboratory evidence of HIV infection. [address] [place] [phone] Gauge Machine Operator: Darryl Craft PhD, Phone: [phone] Performed at: [facility] HIV Negative HIV-1/HIV-2 antibodies and HIV-1 p24 antigen were NOT Performing Lab:see note - [facility] LBHCV Qn Rfx GT NG Reviewed date:07/25/2025 01:28:49 PM Interpretation: Performing Lab: Notes/Report: [facility] ,Hepatitis C QuantitationSee Final Results. IU/mLHCV RNA (International Units) [id number]. IU/mLHCV ksr036.253.Result Units: log10 IU/mLHCV mwn49DTL.Test Information:Comment. The quantitative range of this assay is 15 IU/mL to 100 million IU/mL. HCV GenotypeComment.To be performed on this specimen.Hepatitis C Genotype3. approved by the Food and Drug Administration. Performed at: [facility] determined by [facility]. It has not been cleared or [address], [place] [id number] This test was developed and its performance characteristics Gauge Machine Operator: Breana Euceda MD, Phone: [phone] [facility]forming [facility] LBHBsAg Screen Reviewed date:07/21/2025 12:52:58 PM Interpretation: Performing Lab: Notes/Report: [facility] ,HBsAg ScreenConfirm. indicatedNegativeHBsAg ConfirmationPositive. Gauge Machine Operator: Darryl Craft PhD, Phone: [phone] Performed at: [facility] Result confirmed by neutralization. [address] [place], [place] [phone] Performing Lab:[facility] LBHepatitis B Surf Ab Quant Reviewed date:07/21/2025 12:52:58 PM Interpretation: Performing Lab: Notes/Report: [facility] ,Hepatitis B Surf Ab Quant85.1Immunity>10 mIU/mL Status of Immunity Anti-HBs Level Inconsistent with Immunity 0.0 - 10.0 Consistent with Immunity >10.0 Performing Lab:[facility]St[facility]Hep [facility], Total Reviewed date:07/21/2025 12:52:58 PM Interpretation: Performing Lab: Notes/Report: [facility] ,Hep A Ab, TotalNegativeNegative [address] [place] [phone] Comment: The HAV total antibody assay detects both IgG and be performed if active HAV infection is suspected. [facility] result could be due to vaccination, previously resolved result suggests susceptibility to infection. A positive total antibody results to IgM (e.g., panel #[id number] HAV Performed at: [facility] infection or active infection. Testing for HAV IgM should Antibody w/ Rfx). Gauge Machine Operator: Darryl Craft PhD, Phone: [phone] IgM but does not differentiate between them. A negative offers profiles that will automatically reflex positive HAV Performing Lab:[facility] LBHep B Core Ab, Tot Reviewed date:07/21/2025 12:52:58 PM Interpretation: Performing Lab: Notes/Report: [facility] ,Hep B Core Ab, TotPositiveNegativePerforming Lab:see [facility] LBLAB TESTING Reviewed date:08/20/2025 08:47:49 AM Interpretation: Performing Lab: Notes/Report: [id number] Hepatitis Be Antibody [facility] ,Miscellaneous TestCOMMENT. Performed at: [facility] Gauge Machine Operator: Darryl Craft PhD, Phone: [phone] Hep Be Ab Note: [address] [phone] Reference Range: Negative Test Ordered: [id number] Hep Be Ab Non Reactive Performing Lab:see [facility] LBHep B Core Ab, IgM Reviewed date:08/20/2025 08:47:49 AM Interpretation: Performing Lab: Notes/Report: [facility] ,Hep B Core Ab, IgMNegativeNegative [address] [place] [phone] Gauge Machine Operator: Darryl Craft PhD, Phone: [phone] Performed at: [facility] Performing Lab:see [facility] LBLAB TESTING Reviewed date:08/20/2025 08:47:49 AM Interpretation: Performing Lab: Notes/Report: [id number] Hepatitis Be Antigen [facility] ,[facility]. [address] [place] [phone] Performed at: [facility] Hep Be Ag Positive [A ] CB Reference Range: Negative Gauge Machine Operator: Darryl Craft PhD, Phone: [phone] Test Ordered: [id number] Hep Be Ag Performing Lab:see [facility] LBLAB TESTING Reviewed date:08/21/2025 01:17:53 PM Interpretation: Performing Lab: Notes/Report: 624156 Hepatitis B Virus (HBV), Quantitative, DNA Real-time PCR, (N [facility] ,[facility] TestCOM[facility]. Reference Range: . log10 HBV IU/mL SHUTDOWN COORDINATOR NOLAB Reference Range: . log10 HBV IU/mL 8.386 CB HBV IU/mL [id number] IU/mL CB Units of Measure: log10 IU/mL HBV IU/mL Note: IU/mL CB Performed at: [facility] See Final Results The reportable range for this assay is 10 IU/mL to [address] [place] [phone] Reference Range: . billion IU/mL. Test Information: Comment CB Reference Range: . Test Ordered: [id number] HBV Real-Time PCR, Quant Reference Range: . Gauge Machine Operator: Darryl Craft PhD, Phone: [phone] Performing Lab:see [facility] LBLAB TESTING Reviewed date:08/23/2025 02:03:26 PM Interpretation: Performing Lab: Notes/Report: 601462 Hepatitis D Virus (HDV) Antibody, IgG and IgM [facility] ,Miscellaneous TestCOMMENT. Performed at: [address] [phone] HDV Antibody, IgG/IgM Note: BN or past exposure to HDV. Test Ordered: [id number] HDV Antibody, IgG/IgM No laboratory evidence of hepatitis D virus (HDV) infection Non Reactive Interpretation: Comment BN approved by the Food and Drug Administration. determined by [facility]. It has not been cleared or [address] [place], [place] [phone] Reference Range: Non Reactive Gauge Machine Operator: Darryl Craft PhD, Phone: [phone] Performed at: [facility] This test was developed and its performance characteristics Reference Range: . Gauge Machine Operator: Breana Euceda MD, Phone: [phone] Performing Lab:see [facility] LBTHYROID ANTIBODIES Reviewed date:07/04/2025 11:27:16 AM Interpretation: Performing Lab: Notes/Report: [facility] ,Thyroid Peroxidase (TPO) Xt643-65 IU/mLThyroglobulin Antibody<1.00.0-0.9 IU/mL disease or autoimmunity will have positive TgAb levels up antibodies may not be pathogenic nor diagnostic, especially Gauge Machine Operator: Darryl Craft PhD, Phone: [phone] Performed at: [facility] four percent of individuals without evidence of thyroid [address] [place], [place] [phone] Thyroglobulin Antibody measured by [facility] It should be noted that the presence of thyroglobulin to 4 IU/mL. at very low levels. The assay dope heater has found that Methodology Performing Lab:see [facility] LBPSA SCREENING Reviewed date:06/17/2025 10:29:18 PM Interpretation: Performing Lab: Notes/Report: [facility] ,Prostate Specific Antigen Scrn0.54<=4.00 ng/mLPerforming Lab:see alba - [facility] LBGLYCOHEMOGLOBIN A1C Reviewed date:06/17/2025 10:29:18 PM Interpretation: Performing Lab: Notes/Report: [facility] ,Glycohemoglobin A1C4.84.5-6.2 % ADA THERAPEUTIC TARGET < 7.0 ACTION SUGGESTED ADA RECOMMENDED LIMIT 4.0 - 6.0 > 7.0 Estimated Average Turxyia29Leqgqatyak Lab:see noteML - [facility] LB Reason For Referral Diagnosis 1 Hepatitis (K75.9) Referral Organization [facility] Referring Provider First Name Nathanael Referring Provider Last Name Sahil Referring Provider [facility] Referred Provider [facility], Gastroenterolog y Referred Provider Specialty Gastroentero logy Referral Priority Routine Diagnosis 1 Hypothyroidism (E03. 9) Referral Organization [facility] Referring Provider First Name Nathanael Referring Provider Last Name Sahil [facility] Hilton Boyd Referred Provider Specialty [...] alcohol in the p ast year? No Nuzosu5AtxyhnngbqbhtrYublzrls Problems Problem Type SNOMED Code ICD Code Onset Dates Problem Status W/U Status Risk Notes Problem Asthma (840125697) Asthma (J45.909) ActiveconfirmedProblemCOPD - Chronic obstructive pulmonary disease (49133431) COPD (chronic obstructive pulmonary disease) (J44.9)ActiveconfirmedProblem Hypothyroidism (53790010)Hypothyroidism (E03.9)ActiveconfirmedProblemMitral valve disorder (22861814)MR (mitral regurgitation) (I34.0)ActiveconfirmedProblem Tricuspid valve disorder (30724059)TR (tricuspid regurgitation) (I07.1)Active confirmedProblemWell adult (053710675)Well adult (Z00.00)ActiveconfirmedProblem Hepatitis (992905927)Hepatitis (K75.9)ActiveconfirmedProblemHepatitis B (65657001)Hepatitis B (B19.10)ActiveconfirmedProblemEndocarditis (69904739) Endocarditis (I38)ActiveconfirmedProblemHepatic fibrosis (disorder) (13035541) Liver fibrosis (K74.00)Activeconfirmed Vital Signs Blood pressure diastolic 86 mm Hg 05/26/2025 Knomev57 in05/26/2025lood pressure etmfptla007 mm Hg05/26/20252331Krmqlw229.8 lbs 05/26/2025BMI22.14 kg/m205/26/2025 Encounters Encounter Location Date Provider Diagnosis [address] [address] 05/26/2025 Nathanael Hoy Well adult Z00.[address] [address] 06/17/2025 Nathanael Hoy Abnormal thyroid blo od test R79.89 and Elevated liver enzymes R74.[address] [address] 07/01/2025 Nathanael Hoy [address] [address] 07/01/2025Doug HoyHepatitis K75.9 and Hepatitis B B19.[address] [address] [address] [place] [address]/Doug Hoy Hypothyroidism E03.9B[address] [address]/06/2025Doug [place] [address] [place] [address]/08/2025Doug [address] [address]/Doug Hoy Assessments Encounter Date Diagnosis (ICD Code) Assessment Notes Treatment Notes Treatment Clinical Notes Section Notes 05/26/2025 Well adult (ICD-10 - Z00.00) 06/17/2025bnormal thyroid blood test (ICD-10 - R79.89)06/17/2025Elevated liver enzymes (ICD-10 - R74.8)07/01/2025Hepatitis (ICD-10 - K75.9)07/01/2025Hepatitis B (ICD-10 - B19.10)07/04/2025Hypothyroidism (ICD-10 - E03.9) Plan Of Treatment Pending [...] End Date [employer] [place] [employer] [address] [address] [place] [address] [id number] Corie Cadenaelf - patient is the [id number] 2022 Medical (General) History Medical History History ICD Code Asthma J45.909 COPD (chronic obstructive pulmonary dise ase) J44.9 Endocarditis I38 Hypothyroidism E03.9 Hepatitis A B15.9 Hepatitis B B19.10 Surgical History Surgery Date(Month/Year) Tubes in ears Left achilles tendon repairLeft pinky tendonAPPENDECTOMYHospitalization History Reason Date(Month/Year) BP elevated- troponin levels elevated- T [facility] 05/14/25
--- OUTSIDE RECORDS SUMMARY | 2025-09-10 15:10 | XMS_ITS | CCD ---
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 Name Role Phone Unavailable Primary Care Provider Unavailjuan REBOLLEDO, DR EMY Plata Attending Unavailable REYNOLD, DR MIKY Hernández Consulting Unavailable AMAURY, DR EMY Plata Admitting Unavailable REQUEST, DR OLGA LISTED Primary Care Unavaila ricky REBOLLEDO, DR [...] Attending Unavailable SILVER BABCOCK Attending Unavailable Brody Mccormack MD Primary Care Provider [phone] Anish Novak APRN Attending Provider Fibroscan, Temporary Attending Provider Unavaila Anish Hanson APRN Referring Provider [phone] Unavailable Primary Care Provider UnavailHILTON Styles Attending Unavailable BRODY MCCORMACK Referring Unavailable Anish Novak Referring Unavailable Bean Bloom Admitting Unavailable Bean Bloom Attending Unavailable Brody Mccormack Primary Care Unavailable Fibroscan, Temporary Other Provider Unavailable Bean Bloom MD Attending Provider Allergies Allergy ClassificationReported Allergen(s)Allergy TypeDate of OnsetReaction(s) FacilityPenicillins (antibiotic) (1 source)PenicillinsDrug Hwfcdqk12-87-5558JpphummkgivNojfa Health (20 sources)Penicillins; Translations: [PENICILLINS]Propensity to adverse reactions to fmbg70-80-6031MduawxqsagcAdfap Health- [place], [place] (1 source)PenicillinDrug Nefywcu56-23-6064Iqv [facility] (17 sources)Vancomycin; Translations: [VANCOMYCIN]Drug Kbbcvsu46-27-7436Jtkiv (See Comments), [facility] Work Phone (unformatted): [phone] on above:Pt states he got red man syndrome (1 source)PenicillinsPropensity to adverse reactions to ryjp80-48-2383 [facility] [employer] Work Phone: (2 sources)PenicillinsPropensity to adverse ehwewwfct72-12-8205HzcfspzuatoYQGK Healthcare (1 source)PenicillinsDrug allergy (disorder)94-97-1212[facility]wjrqmfCl[facility] (1 source)VancomycinDrug Uopcuzk07-28-1864QytbhacvmClermont County Hospital Repository Medications Current Medications MedicationDrug Class(es)DatesSig (Normalized)Sig (Original)acetaminophen 500 mg oral tablet (7 sources)Start: 05-23-7010bgrs 1 tablet by mouth every four hours as needed for painacetaminophen (TYLENOL) 500 MG tablet Take 1 tablet by mouth every 4 hours as needed for Pain or Fever 20 tablet 0 09/28/2022 ActiveStart: 06-16-2022 acetaminophen (TYLENOL) tablet 650 mgStart: 03-35-8465feekrrwmjurfw (TYLENOL) tablet 650 mgStart: 88-37-2045bazjcwixebztw (TYLENOL) tablet 650 mgStart: 01-20-2022 End: 91-18-9051yowjcntuxndit (TYLENOL) tablet 650 mgStart: 01-20-2022 End: 33-36-9290hbypyucaikhzt (TYLENOL) tablet 650 mgStart: 12-13-2021 acetaminophen (TYLENOL) tablet 650 mgalbuterol 0.83 mg/ml inhalation solution (6 sources)beta2-Adrenergic AgonistStart: 10-29-8199kpfwzeqfa (PROVENTIL) nebulizer solution 2.5 mgStart: 68-99-3037xqevvqxsp sulfate HFA 108 (90 Base) MCG/ACT inhaler 2 puffStart: 43-09-4176fhzkdlwtq (PROVENTIL) nebulizer solution 2.5 mgStart: 68-25-5119lvso 2 puff(s) by inhalation every six hours as needed for wheezingalbuterol sulfate HFA (PROVENTIL HFA) 108 (90 BASE) MCG/ACT inhaler Inhale 2 puffs into the lungs every 6 hours as needed for Wheezing or Shortness of Breath (Rinse mouth with water after every use) 1 Inhaler 0 03/16/2016 Active Start: 03-16-2016 End: 02-41-3552mqlq 2 puff(s) by inhalation every six hours as needed for wheezingalbuterol sulfate HFA (PROVENTIL HFA) 108 (90 BASE) MCG/ACT inhaler Inhale 2 puffs into the lungs every 6 hours as needed for Wheezing or Shortness of Breath (Rinse mouth with water after every use) 1 Inhaler 0 03/16/2016 12/20/2021 Discontinued (Stop Taking at Discharge)aluminum hydroxide 40 mg/ml / magnesium hydroxide 40 mg/ml / simethicone 4 mg/ml oral suspension (1 source)Start: 80-73-1277fftobhtk & magnesium hydroxide-simethicone (MAALOX) 200-200-20 MG/5ML suspension 30 mLbenzocaine 200 mg/ml medicated pad (1 source)Standardized Chemical AllergenStart: 85-50-6236xoxs 5 doses by mouth three times daily as needed for painbenzocaine (LOLLICAINE) 20 % SWAB dental swab Take by mouth 3 times daily as needed for Pain 5 each0 10/18/2023 Active benzonatate 100 mg oral capsule (2 sources)Non-narcotic AntitussiveStart: 50-21-9736vohf 1-2 capsules by mouth three times daily as needed for coughbenzonatate (TESSALON) 100 MG capsule Take 1-2 capsules by mouth 3 times daily as needed for Cough 30 capsule 0 01/30/2024 Activebisacodyl 5 mg delayed release oral tablet (1 source)Stimulant LaxativeStart: 03-19-0139nuvwaxkns (DULCOLAX) EC tablet 5 mg 1.5 ml buprenorphine 200 mg/ml prefilled syringe (1 source)Partial Opioid Agonistbuprenorphine er (SUBLOCADE) 300 MG/1.5ML SOSY injection Inject 1.5 mLs into the skin every 30 days. Max Daily Amount: 300 mg 0 Activebuprenorphine 2 mg / naloxone 0.5 mg sublingual film (6 sources)Partial Opioid Agonist, Opioid AntagonistStart: 07-15-2025 Buprenorphine-Naloxone (Suboxone) 2-0.5 mg film Active 1 FILM BUCCAL Daily July 15, 2025 12:00am place 1 strip/tab under (each) side of tongue Complies with drug therapyStart: 09-39-9190rhhrjviesnkhp-naloxone (SUBOXONE) 8-2 MG FILM SL filmBuprenorphine HCl-Naloxone HCl (Suboxone) 8-[address] 1 Film under the tongue Daily Activecaspofungin (CANCIDAS) 150 mg in sodium chloride 0.9 % 250 mL IVPB (1 source)Start: 06-83-3667ylpreziqjbz (CANCIDAS) 150 mg in sodium chloride 0.9 % 250 mL IVPBdalbavancin 500 mg injection (5 sources)Lipoglycopeptide AntibacterialStart: 68-89-1338cwduhtpbzdp (DALVANCE) 500 MG SOLR injection Infuse 1,000 mg intravenously every 7 days No iv to be left in arm pls - 2 each 0 06/19/2022 ActiveStart: 12-20-2021 End: 30-13-9168fbrczkspktd (DALVANCE) 500 MG SOLR injection Infuse 1,500 mg intravenously every 7 days for 2 doses2 each 0 12/20/2021 12/28/2021 Active fluconazole 100 mg oral tablet (12 sources)Azole AntifungalStart: 06-19-2022 End: 22-63-6008khhj 4 tablets by mouth every week in the morningfluconazole (DIFLUCAN) 100 MG tablet Take 4 tablets by mouth in the morning. Pls make sure you get the weekly blood for Liver function tests while on this medication. 168 tablet 0 06/19/2022 07/31/2022 ActiveStart: 47-87-1354jauasxwvwaf (DIFLUCAN) tablet 400 mgStart: 06-15-2022 End: 33-68-1542apkbgzjiwzi (DIFLUCAN) 400 mg IVPBStart: 01-30-2022 End: 48-92-6988vxfs 4 tablets by mouth once dailyfluconazole (DIFLUCAN) 100 MG tablet Take 4 tablets by mouth daily Till 03/10/22 Get lFT 2 x per week You ll need repeat echo before the cessation of this medication 156 tablet 0 01/30/2022 03/10/2022ctiveStart: 01-23-2022 End: 04-98-7946kuohqmmgjex (DIFLUCAN) 400 mg IVPBStart: 01-23-2022 End: 98-15-9190cegvnqwecgn (DIFLUCAN) 800 mg IVPB End: 20-70-0533bhfy 2 tablets by mouth in the morningfluconazole (DIFLUCAN) 200 MG tablet Take 400 mg by mouth in the morning. 0 06/19/2022 Discontinued(Stop Taking at Discharge)fluticasone propionate 0.05 mg/actuat metered dose nasal spray (6 sources)CorticosteroidStart: 01-30-2022 End: 08-70-1049rjvj 1 spray(s) nasal route once dailyfluticasone (FLONASE) 50 MCG/ACT nasal spray 1 spray by Each Nostril route daily 16 g 3 01/30/2022 0 05/08/2022 Discontinued (Stop Taking at Discharge)Start: 88-97-1310rkfjkturuhm (FLONASE) 50 MCG/ACT nasal spray 1 sprayglucagon (rdna) 1 mg injection (1 source)Antihypoglycemic AgentStart: 33-78-4323nrjasucq (rDNA) injection 1 mg 150 ml glucose 50 mg/ml injection (3 sources)Start: 62-12-4900hdvdgef (GLUTOSE) 40 % oral gel 15 gStart: 29-13-5549dnbaotvf 50 % IV solutionStart: 64-93-8668byoyymkp 5 % uckpcncd63 hr guaiFENesin 600 mg extended release oral tablet (2 sources)Start: 01-30-2022 End: 29-95-0011hliu 1 tablet by mouth twice dailyguaiFENesin (MUCINEX) 600 MG extended release tablet Take 1 tablet by mouth 2 times daily for 14 days 28 tablet 0 01/30/2022 02/13/2022 ActivehydrOXYzine hydrochloride 25 mg oral tablet (4 sources)AntihistamineStart: 01-20-2022 End: 79-48-3844wdic 25 mg by mouth three times daily as lypulr67 mg, Oral, 3 TIMES DAILY PRN, Itching, Starting on 01/20/22 at 2236ibuprofen 800 mg oral tablet (8 sources)Nonsteroidal Anti-inflammatory DrugStart: 40-86-4666jhec 1 tablet by mouth three times daily as needed for painibuprofen (ADVIL;MOTRIN) 600 MG tablet Take 1 tablet by mouth 3 times daily as needed for Pain 40 tablet 0 10/18/2023 ActiveStart: 01-14-2018 End: 12-46-3019Evgsrovtu 800 mg tablet Discontinued 800 MG PO every 6 to 8 hours as needed for pain January 14, 2018 8:04pm July 15, 2025 2:00pmStart: 09-14-2017 End: 43-43-7431rjmn 4 tablets by mouth every twenty-four hours for painIbuprofen 600 mg tablet Discontinued 600 MG PO every 6 to 8 hours as needed for pain September 14, 2017 12:00am January 14, 2018 7:21pm do not exceed 4 doses in a 24 hour period1 ml ketorolac tromethamine 15 mg/ml cartridge (2 sources)Nonsteroidal Anti-inflammatory Drug, Cyclooxygenase InhibitorStart: 01-27-2022 End: 45-79-9890zthixvuxc (TORADOL) injection 30 mgStart: 12-13-2021 End: 72-09-3976nimiccrvl (TORADOL) injection 30 mglevoFLOXacin 500 mg oral tablet (4 sources)Quinolone AntimicrobialStart: 01-30-2022 End: 23-47-8017powy 1 tablet by mouth once dailylevoFLOXacin (LEVAQUIN) 500 MG tablet Take 1 tablet by mouth daily 39 tablet 0 01/30/2022 03/10/2022 Active LORazepam 1 mg oral tablet (4 sources)BenzodiazepineStart: 04-32-8967NJJvegfbv (ATIVAN) tablet 1 mgStart: 01-21-2022 End: 05-99-7092BZQoeqqrs (ATIVAN) injection 0.5 mgStart: 03-12-6092VJJdhldcv (ATIVAN) tablet 0.5 mgStart: 12-16-2021 End: 79-01-9759ZENipgqld (ATIVAN) injection 1 mgmagnesium hydroxide 80 mg/ml oral suspension (1 source)Start: 62-72-7028gtqbmmgvj hydroxide (MILK OF MAGNESIA) 400 MG/5ML suspension 30 mLmelatonin 3 mg oral tablet (2 sources)Start: 80-31-1617gbnyqxcoa tablet 3 mgStart: 12-14-2021 End: 18-73-7663wwrajqhqc tablet 5 mgNutritional Supplements (BOOST/FIBER PO) (13 sources)Nutritional Supplements (BOOST/FIBER PO) Take by mouth 0 Active ondansetron (ZOFRAN-ODT) disintegrating tablet 4 mg (3 sources)Start: 07-67-9671gmsidendfxr (ZOFRAN-ODT) disintegrating tablet 4 mg Start: 05-87-1893bxptyndjojn (ZOFRAN-ODT) disintegrating tablet 4 mgStart: 10-15-5053knsjfbghbkv (ZOFRAN-ODT) disintegrating tablet 4 mgPotassium Chloride (3 sources)Start: 14-87-1849hzpwuixkg chloride (KLOR-CON M) extended release tablet 40 mEqStart: 94-14-7645qlscsxkvg chloride (KLOR-CON M) extended release tablet 40 mEqStart: 68-45-7678rnpnylrpv chloride (KLOR-CON M) extended release tablet 40 mEq1 ml promethazine hydrochloride 25 mg/ml injection (1 source)PhenothiazineStart: 48-66-6986adjgjmiqpaoa (PHENERGAN) injection 12.5 mgtigecycline (TYGACIL) 100 mg in sodium chloride 0.9 % 100 mL IVPB (1 source)Start: 54-90-9362ejlmxzhojat (TYGACIL) 100 mg in sodium chloride 0.9 % 100 mL IVPBtraZODone hydrochloride 50 mg oral tablet (4 sources)Serotonin Reuptake InhibitorStart: 01-21-2022 End: 00-50-4447bawXZFvgr (DESYREL) tablet 50 mg End: 08-21-4308nshe 1 tablet by mouth once dailytraZODone (DESYREL) 50 MG tablet Take 50 mg by mouth nightly 0 05/29/2021 Discontinued (LIST CLEANUP)vancomycin (VANCOCIN) 1250 mg in dextrose 5 % 250 mL IVPB (2 sources)Start: 98-58-3161oggkhsvvbs (VANCOCIN) 1250 mg in dextrose 5 % 250 mL IVPBStart: 12-18-2021 End: 45-71-9638qqpevafjuf (VANCOCIN) 1250 mg in dextrose 5 % 250 mL IVPB vancomycin (VANCOCIN) 1250 mg in sodium chloride 0.9% 250 mL IVPB (3 sources)Start: 84-28-3180mjxpqpjvld (VANCOCIN) 1250 mg in sodium chloride 0.9% 250 mL IVPBStart: 06-15-2022 End: 21-51-2901xerdlktmif (VANCOCIN) 1250 mg in sodium chloride 0.9% 250 mL IVPB Start: 01-21-2022 End: 66-32-5959pvzbqhxmpt (VANCOCIN) 1250 mg in sodium chloride 0.9% 250 mL IVPB vancomycin (VANCOCIN) intermittent dosing (placeholder) (2 sources)Start: 77-42-9156txudnukedf (VANCOCIN) intermittent dosing (placeholder)Start: 09-00-4742ffnbcqbadb (VANCOCIN) intermittent dosing (placeholder)zolpidem tartrate 5 mg oral tablet (1 source)gamma-Aminobutyric Acid-ergic AgonistStart: 95-37-0821xydjusqw (AMBIEN) tablet 5 mg Completed/Discontinued Medications MedicationDrug Class(es)DatesSig (Normalized)Sig (Original)ALPRAZolam 0.25 mg oral tablet (1 source)BenzodiazepineStart: 12-16-2021 End: 57-12-9565TOYWBHohyd (XANAX) tablet 0.25 mgamoxicillin 500 mg oral capsule (3 sources)Penicillin-class AntibacterialStart: 01-20-2018 End: 66-39-9836ptko 1 capsule by mouth three times dailyAmoxicillin 500 mg capsule Discontinued 500 MG PO Three times daily January 20, 2018 12:00am July 15, 2025 2:00pmamoxicillin 875 mg / clavulanate 125 mg oral tablet (3 sources)Penicillin-class AntibacterialStart: 01-17-2018 End: 84-86-7096vigi 1 tablet by mouth twice dailyAmoxicillin-Pot Clavulanate (Augmentin) 875-125 mg tablet Discontinued 1 TAB PO Twice daily 30 08January 17, 2018 1:00am January 26, 2018 12:00am January 20, 2018 3:21pmamphotericin B liposome (AMBISOME) 366 mg in dextrose 5 % 158.5 mL IVPB (1 source)Start: 01-24-2022 End: 28-12-3511jexipykiyobk B liposome (AMBISOME) 366 mg in dextrose 5 % 158.5 mL IVPBaspirin 81 mg chewable tablet (1 source)Platelet Aggregation Inhibitor, Nonsteroidal Anti-inflammatory Drug Start: 12-16-2020 End: 91-09-7228cudhuxp chewable tablet 324 mgStart: 12-16-2020 End: 02-34-2837njggzql chewable tablet 324 mgazithromycin 250 mg oral tablet (1 source)Macrolide AntimicrobialStart: 12-16-2020 End: 01-66-9528lxargpncjbmn (ZITHROMAX) tablet 500 mgaztreonam (AZACTAM) 1000 mg IVPB minibag (1 source)Start: 12-14-2021 End: 64-51-2408xgysuvyxg (AZACTAM) 1000 mg IVPB minibagcefepime (MAXIPIME) 2,000 mg in sterile water 20 mL IV syringe (1 source)Start: 06-15-2022 End: 87-52-9298pjuqmkop (MAXIPIME) 2,000 mg in sterile water 20 mL IV syringe chlorhexidine gluconate 1.2 mg/ml mouthwash (3 sources)Start: 01-17-2018 End: 83-31-4498uoxh 1 mL by mouth once dailyChlorhexidine Gluconate (Peridex) 0.12 % mouthwash Discontinued 15 ML MUCOUS MEM Daily 118 January 17, 2018 1:00am January 20, 2018 3:21pm rinse mouth for at least 30 secsclindamycin 300 mg oral capsule (3 sources)Lincosamide AntibacterialStart: 01-14-2018 End: 03-89-0934qowf 1 capsule by mouth every six hoursClindamycin Hcl 300 mg capsule Discontinued 300 MG PO Q6H 40 10 January 14, 2018 1:00am January 23, 2018 12:00am January 24, 2018 12:04amdalbavancin (DALVANCE) 1,000 mg in dextrose 5 % 500 mL IVPB (2 sources)Start: 07-09-2022 End: 34-67-4960thqpykcupdu (DALVANCE) 1,000 mg in dextrose 5 % 500 mL IVPBStart: 07-02-2022 End: 25-44-8497lwlkfszgqna (DALVANCE) 1,000 mg in dextrose 5 % 500 mL IVPB dalbavancin (DALVANCE) 1,500 mg in dextrose 5 % 500 mL IVPB (1 source)Start: 01-06-2022 End: 11-06-2601ahslwvimakh (DALVANCE) 1,500 mg in dextrose 5 % 500 mL IVPB DAPTOmycin (CUBICIN) 450 mg in sodium chloride 0.9 % 50 mL IVPB (2 sources)Start: 01-24-2022 End: 79-35-9111UVULBymyjf (CUBICIN) 450 mg in sodium chloride 0.9 % 50 mL IVPB Start: 01-21-2022 End: 76-32-7234BFIBUsxqqt (CUBICIN) 450 mg in sodium chloride 0.9 % 50 mL IVPB dexamethasone phosphate 10 mg/ml injectable solution (1 source)CorticosteroidStart: 12-16-2020 End: 50-43-2217hgimiagxtcpbn (DECADRON) injection 10 mg1 ml diphenhydrAMINE hydrochloride 50 mg/ml cartridge (6 sources)Histamine-1 Receptor AntagonistStart: 06-18-2022 End: 92-58-2968qqwpmruqoeRBIBE (BENADRYL) injection 25 mgStart: 06-18-2022 End: 12-78-9898pskhybqwqjIFYIH (BENADRYL) injection 12.5 mgStart: 06-18-2022 diphenhydrAMINE (BENADRYL) tablet 12.5 mgStart: 18-64-0684malhgcygwxNZMOK (BENADRYL) injection 25 mgStart: 01-20-2022 End: 45-71-6606awekyishjoDLOZV (BENADRYL) injection 50 mgdoxycycline hyclate 100 mg oral tablet (5 sources)Tetracycline-class DrugStart: 01-27-2022 End: 33-14-8064tjoddkcdckc hyclate (VIBRA-TABS) tablet 100 mgStart: 01-23-2022 End: 52-57-0014fctysdxgxth hyclate (VIBRA-TABS) tablet 100 mg End: 66-69-4049ahkf 1 tablet by mouth twice dailydoxycycline hyclate (PERIOSTAT) 20 MG tablet Take 20 mg by mouth 2 times daily 0 01/30/2022 Discontinued (Stop Taking at Discharge)0.4 ml enoxaparin sodium 100 mg/ml prefilled syringe (4 sources)Low Molecular Weight HeparinStart: 53-95-0043vlzufi 40 mg by subcutaneous injection once daily40 mg, SubCUTAneous, DAILY, First dose on 06/16/22 at 0900, Until Discontinued Indication of Use:Prophylaxis-DVT/PEStart: 01-13-4327omdfaq 40 mg by subcutaneous injection once daily40 mg, SubCUTAneous, DAILY, First dose on 05/06/22 at 0900, Until Discontinued Indication of Use: Prophylaxis-DVT/PEStart: 70-65-7247schwwt 40 mg by subcutaneous injection once daily40 mg, SubCUTAneous, DAILY, First dose on 01/21/22 at 0900Start: 44-25-9998wgnpifpgtv (LOVENOX) injection 40 mg2 ml famotidine 10 mg/ml injection (2 sources)Histamine-2 Receptor AntagonistStart: 01-20-2022 End: 37-72-5360ygobwibviv (PEPCID) injection 20 mg2 ml fentaNYL 0.05 mg/ml injection (1 source)Opioid AgonistStart: 01-26-2022 End: 93-73-9018dzoexKMZ (SUBLIMAZE) injection 50 mcggadoteridol (PROHANCE) injection 15 mL (1 source)Start: 01-23-2022 End: 99-15-5708yvrfceftnlt (PROHANCE) injection 15 mLgadoteridol (PROHANCE) injection 16 mL (1 source)Start: 06-16-2022 End: 53-21-2532bzapotpxbyw (PROHANCE) injection 16 mLhydroCHLOROthiazide 25 mg / triamterene 37.5 mg oral tablet (5 sources)Potassium-sparing Diuretic, Thiazide DiureticStart: 01-10-2022 End: 63-27-0983gnpz 1 tablet by mouth once daily1 tablet, Oral, DAILY, First dose on 01/21/22 at 0900iopamidol (ISOVUE-370) 76 % injection 75 mL (6 sources)Start: 06-15-2022 End: 36-43-9544xojrmwkyd (ISOVUE-370) 76 % injection 75 mLStart: 05-05-2022 End: 71-25-5534hvpszqnzy (ISOVUE-370) 76 % injection 75 mLStart: 01-20-2022 End: 07-13-0303udlldxcoa (ISOVUE-370) 76 % injection 75 mLStart: 05-29-2021 End: 36-39-1326ynrdvjfmv (ISOVUE-370) 76 % injection 75 mLStart: 12-16-2020 End: 85-31-7020efmkwjdgy (ISOVUE-370) 76 % injection 75 mLlinezolid 600 mg oral tablet (4 sources)Oxazolidinone AntibacterialStart: 01-21-2022 End: 08-70-4027babzblilc (ZYVOX) tablet 600 mgStart: 47-04-4916eitjwkera (ZYVOX) IVPB 600 mg50 ml magnesium sulfate 40 mg/ml injection (4 sources)Start: 06-16-2022 End: 50-43-0166rlpvbavhu sulfate 2000 mg in 50 mL IVPB premixStart: 05-06-2022 take 1000 mg intravenously every hour as needed1,000 mg, IntraVENous, at 100 mL/hr, Administer over 1 Hours, PRN, Other, Per IV Magnesium Replacement Protocol, Starting on 05/06/22 at 0533 Mg Lab &nbsp ;Replacement Action 1.4-1.6 1 gram IVPB x 2 doses&am p;nbsp; &am p;nbsp; (2 gram Total) 1.0- 1.3 1 gram IVPB x 4 doses & amp;nbsp; & amp;nbsp; (4 gram Total) <1.0 CALL PHYSICIAN and 1 gram IVPB x 4 doses (4 gram Total) Infuse at 1 gram/hr Repeat Mag level next AM Protocol not for use in Patients with CrCl<30ml/min Start: 09-54-1831ckaa 1000 mg intravenously every hour as needed1,000 mg, IntraVENous, at 100 mL/hr, Administer over 1 Hours, PRN, Other, Per IV Magnesium Replacement Protocol, Starting on 01/20/22 at 2236 Mg Lab Replacement Action 1.4- 1.6 1 gram IVPB x 2 doses&am p;nbsp; &am p;nbsp; (2 gram Total) 1.0- 1.3 1 gram IVPB x 4 doses & amp;nbsp; & amp;nbsp; (4 gram Total) <1.0 CALL PHYSICIAN and 1 gram IVPB x 4 doses (4 gram Total) Infuse at 1 gram/hr Repeat Mag level next AM Protocol not for use in Patients with CrCl<30ml/min Start: 75-27-8878hgusknjtb sulfate 1000 mg in dextrose 5% 100 mL IVPBmethylPREDNISolone 125 mg injection (2 sources)CorticosteroidStart: 01-20-2022 End: 25-49-6017gionoqRFURNWIfropu sodium (SOLU-MEDROL) injection 125 mg5 ml metoprolol tartrate 1 mg/ml injection (4 sources)beta-Adrenergic BlockerStart: 01-28-2022 End: 28-73-0204ckuyqiebzd (LOPRESSOR) injection 5 mgStart: 01-25-2022 End: 44-60-0216xjxveaiqnn succinate (TOPROL XL) extended release tablet 25 mg Start: 12-18-2021 End: 85-92-3195avwummbjfa tartrate (LOPRESSOR) tablet 12.5 mg1 ml morphine sulfate 4 mg/ml cartridge (2 sources)Opioid AgonistStart: 12-16-2021 End: 01-00-5263czekvjiz 4 MG/ML injectionStart: 03-71-8244yvycvgvs (PF) injection 2 mg2 ml naloxone hydrochloride 1 mg/ml prefilled syringe (5 sources)Opioid AntagonistStart: 01-10-2022 End: 31-72-1807njmsijlw (NARCAN) injection 2 mgStart: 01-10-2022 End: 47-94-7503uikzgijo (NARCAN) 2 MG/2ML injectionStart: 12-19-2021 End: 07-54-9670mvlmydjw (NARCAN) injection 0.4 mgStart: 12-19-2021 End: 99-69-7803avseqhni (NARCAN) 0.4 MG/ML injectionStart: 84-73-6400xtfezrrq (NALOXONE TO-GO) 4 mg/0.1 mL nasal spray2 ml ondansetron 2 mg/ml injection (2 sources)Serotonin-3 Receptor AntagonistStart: 01-10-2022 End: 72-93-6352mtvrksyfhyb (ZOFRAN) injection 4 mgStart: 01-10-2022 End: 67-38-1270jkjdcnwhraq (ZOFRAN) 4 MG/2ML injectionpiperacillin-tazobactam (ZOSYN) 4,500 mg in dextrose 5 % 100 mL IVPB (mini-bag) (1 source)Start: 06-15-2022 End: 56-80-1818jjxcfpjhyaot-tazobactam (ZOSYN) 4,500 mg in dextrose 5 % 100 mL IVPB (mini-bag)polyethylene glycol 3350 43591 mg powder for oral solution (2 sources)Osmotic LaxativeStart: g, Oral, DAILY PRN, Starting on 05/06/22 at 0533, Until Discontinued, Constipation First linetherapy for constipationStart: g, Oral, DAILY PRN, Constipation, Starting on 01/20/22 at 2236 First line therapy for constipationpredniSONE 20 mg oral tablet (3 sources)Start: 09-14-2017 End: 57-49-3729ibsd 3 tablets by mouth once daily at mealtimePrednisone 20 mg tablet Discontinued 60 MG PO .qd September 14, 2017 12:00am January 14, 2018 7:21pm administer with food or milk50 ml sodium chloride 9 mg/ml injection (20 sources)Start: 83-14-1639TcsvvYZYunv, at 5-250 mL/hr, PRN, if patient receiving piggyback infusions and maintenance fluids are not ordered OR KVO fluids to protect IV site / prevent frequent line interruptions/ long duration, Starting on 06/16/22 at 0239 For piggyback infusion, administer at same rate as piggyback for a total of 25 mL. Enter 25 mL into dose field and piggyback rate into rate field of order. Ifpiggyback is infusing at a rate less than 100 mL/hr, enter 25 mL into dose field and 100 mL/hr intorate field of order. For KVO fluids, enter rate of 20 mL/hr or less into rate field of order.Start: 06-87-2744rbtl 5-40 mL intravenously once as needed5-40 mL, IntraVENous, PRN, Starting on 06/16/22 at [...] Midline or Central Line = 10 mL/lumen & nbsp;For viscous solutions (i.e. blood components, parenteral nutrition, contrast media, or after obtaining blood sample) use: Peripheral IV = 10 mL Midline or Central Line = 20 mL/lumenStart: 06-15-2022 End: .9 % sodium chloride bolusStart: 06-15-2022 End: 44-05-6780qjtt 1 mL intravenously every hourIntraVENous, at 100 mL/hr, CONTINUOUS, Starting on 06/16/22 at 0300 Maintenance IV fluid order, if a bolus IV fluid order is present, begin this order after the bolus is complete. Start: 06-15-2022 End: 92-91-5270fqlijg chloride flush 0.9 % injection 5-40 mLStart: 05-06-2022 take 1 dose intravenously twice daily5-40 mL, IntraVENous, EVERY 12 HOURS SCHEDULED (2 times per day), First dose on Sat05/06/22 at 0900, Until Discontinued For Line Patency: Peripheral IV = 5 mL; Midline or Central Line = 10 mL/lumen. If following IV push medication, administer flush at same rate as the IV push. Flush volume is determined by type of infusion therapy being given. For non-viscoussolutions use: Peripheral IV = 5 mL Midline or Central Line = 10 mL/lumen For viscous solutions (i.e. blood components, parenteral nutrition, contrast media, or after obtaining blood sample) use: Peripheral IV = 10 mL Midline or Central Line = 20 mL/lumenStart: 22-37-8489NlwbnVPRjil, at 5-250 mL/hr, PRN, if patient receiving piggyback infusions and maintenance fluids are not ordered OR KVO fluids to protect IV site / prevent frequent line interruptions/ long duration, Starting on Sat05/06/22 at 0533 For piggyback infusion, administer at same rate as piggyback for atotal of 25 mL. Enter 25 mL into dose field and piggyback rate into rate field of order. If piggyback is infusing at a rate less than 100 mL/hr, enter 25 mL into dose field and 100 mL/hr into rate field of order. For KVO fluids, enter rate of 20 mL/hr or less into rate field of order.Start: [id number] 10 mL intravenously once as mL, IntraVENous, PRN, Starting on Sat05/06/22 at 0533, Until Discontinued, Line Care, After every IV line useStart: 01-28-2022 End: .9 % sodium chloride bolusStart: 97-81-0286wmpv 1 dose intravenously twice daily5-40 mL, IntraVENous, EVERY 12 HOURS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 REED HOSPITALDirect Exam>25 NEUTROPHILS/LPFBON MARIETTA MEMORIAL HOSPITALDirect Exam< 10 EPITHELIAL CELLS/LPFBON [facility]othe Hospitalrect ExamMIXED BACTERIAL MORPHOTYPES SEEN ON GRAM STAIN. AbnormalRIVERSIDE WALTER REED HOSPITALInterpretation and review of laboratory results AbnormalRIVERSIDE WALTER REED HOSPITALSpecimen Description.ASPIRATED SPUTUMSOVAH HEALTH - DANVILLEANTISTREPTOLYSIN O SCREENon 18-58-2436HMP 130.8BON [facility] HOSPITALBrain Natriuretic Peptideon [id number] peptide B (Bld) [Mass/Vol]287 pg/mLNINF - 300 pg/mLRIVERSIDE WALTER REED HOSPITALComment on above: An age-independent cutoff point of 300 pg/ml has a 98% negative predictive value excluding acute heart failure. C-Reactive Proteinon [id number] [Mass/Vol]16.4 mg/LHigh0 - 5 mg/LBON [facility]IAL HOSPITALInterpretation and review of laboratory resultsAbnormalBON [facility]OSPITALComprehensive Metabolic Panel w/ Reflex to MGon [id number] [Mass/Vol]3.1 g/dLLow3.5 - 5.2 g/dLBON [facility] Holisol logisticsAlbumin/Globulin [Mass ratio]0.8 {ratio}Low1 - 2.5BON [facility] [employer] ALP (Bld) [Catalytic activity/Vol]76 U/L40 - 129 U/LBON [facility] HEALTHALT [Catalytic activity/Vol]21 U/L5 - 41 U/LB[facility] Holisol logisticsAnion gap [Moles/Vol]10 mmol/L9 - 17 mmol/LBON [facility] HEALTHAST [Catalytic activity/Vol]15 U/LNINF - 40 U/LB[address] HOSPITALAdTotumBilirubin [Mass/Vol]0.35 mg/dL0.3 - 1.2 mg/dLBON [facility] HEALTHCalcium [Mass/Vol]8.6 mg/dL8.6 - 10.4 mg/dLBON [facility] HEALTHChloride [Moles/Vol]107 mmol/L98 - 107 mmol/L B[facility] HOSPITALCO2 [Moles/Vol]22 mmol/L20 - 31 mmol/LBON [facility] Holisol logisticsCreatinine [Mass/Vol]0.72 mg/dL0.7 - 1.2 mg/dLB[facility] Holisol logisticsFree PSA/Total PSA [Mass fraction]7.0 g/dL6.4 - 8.3 g/dLBON [facility] Holisol logisticsGFR >6060 - PINF mL/minRIVERSIDE WALTER REED HOSPITALGFR Non->6060 - PINF mL/minB[facility] Holisol logisticsGFR/1.73 sq M.predicted MDRD (S/P/Bld) [Vol rate/Area][facility]OSPITALComment on above:Average GFR for 40-49 years old: 99 mL/min/1.73sq m Chronic Kidney Disease: <60 mL/min/1.73sq m Kidney failure: <15 mL/min/1.73sq m eGFR calculated using average adult body mass. Additional eGFR calculator available at: http://www.G3/multiple_crcl_2012.htm Glucose [Mass/Vol]96 mg/dL70 - 99 mg/dLB[facility] Holisol logisticsInterpretation and review of laboratory resultsAbnormalBON [facility] HEALTHPotassium [Moles/Vol]3.6 mmol/LLow3.7 - 5.3 mmol/LBON [facility]CY HEALTHSodium [Moles/Vol]139 mmol/L135 - 144 mmol/LBON [facility] MERCY HEALTHUrea nitrogen (BldV) [Mass/Vol]9 mg/dL6 - 20 mg/dLBON SECDahu MERCY HEALTHDRUG SCREEN MULTI URINEon 67-58-1706Olljwddihdm Screen, UrNegativeNEGATIVEB[facility] Comment on above: (Positive cutoff 1000 ng/mL) Barbiturate Screen, UrNegativeNEGATIVEBON [facility] MERCY HEALTHComment on above: (Positive cutoff 200 ng/mL) Benzodiazepine Screen, UrineNegativeNEGATIVEBON [facility]CY HEALTHComment on above: (Positive cutoff 200 ng/mL) Cannabinoid Scrn, UrNegativeNEGATIVEBON [facility] MERCY HEALTHComment on above: (Positive cutoff 50 ng/mL) Cocaine Metabolite, UrineNegativeNEGATIVEBON [facility] MERCY HEALTHComment on above: (Positive cutoff 300 ng/mL) Fentanyl, UrNegativeNEGATIVEBON [facility] MERCY HEALTHComment on above: (Positive cutoff 5 ng/ml) Methadone Screen, UrineNegativeNEGATIVEBON [facility]CY HEALTHComment on above: (Positive cutoff 300 ng/mL) Opiates, UrineNegativeNEGATIVEBON [facility] MERCY HEALTHComment on above: (Positive cutoff 300 ng/mL) Oxycodone Screen, UrNegativeNEGATIVEBON [facility] MERCY HEALTHComment on above: (Positive cutoff 100 ng/mL) Phencyclidine, UrineNegativeNEGATIVEBON [facility]OU[facility] MERCY HEALTHComment on above: (Positive cutoff 25 ng/mL) Test InformationAssay provides medical screening only. The absence of expected drug(s) and/or metabolite(s) may indicate diluted or adulterated urine, limitations of testing or timing of collection.FlavourlyComment on above:Testing for legal purposes should be confirmed by another method. To request confirmation of test result, please call the lab within 7 days of sample submission. [employer] [facility] 12 LeadOrdered By: Alec Cheung on [id number] [id number] apprupt Work Phone: P [id number] [employer] Phone: [phone]-R [id number] [facility] [employer] Phone: [phone]-T Lurhpvdw350 [facility] [employer] Phone: [phone] Glzysgvb71 [facility] [employer] Phone: [phone] Calculation (Bazett)455 msBAN[facility] apprupt Work Phone: [phone] Yumu91lufzjcfHUC [employer] Phone: [phone] Tfuv15rgfalorBVH [employer] Phone: [phone] [id number] [employer] Phone: [phone] [employer] Phone: [phone] 12 Leadon 97-08-7231Ljqac tachycardia Otherwise normal ECG When compared with ECG of 30-JAN-2022 08:47, No significant change was foundMHPN Alec Casey MD - 06/16/2022 Sinus tachycardia Otherwise normal ECG When compared with ECG of 30-JAN-2022 08:47, No significant change was found [facility] [employer] Phone: echocardiogram 3Don [id number] Echocardiography Report (TTE) Patient Name COTY Date of Study 06/16/2022 TIP Plata Date of 1980 Gender Male Age 42 year(s) Race Room Number 430 Height: 73 inch, 185.42 cm Corporate ID [id number] Weight: 172 pounds, 78 kg # Patient Acct [id number] BSA: 2.02 m^2 BMI: 22.69 # kg/m^2 MR # [id number] Sponge Hooker T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 Procedure Date Date: 06/16/2022 Start: 11:00 AM Study Location: [facility] Indications:Endocarditis. History / Tech. Comments: Lower Respiratory Pneumonia, [...] E' velocity:0.09 m/s Lateral Wall E' velocity:0.10 m/sMHPN STV Alec Hopkins MD - 06/16/2022 Transthoracic Echocardiography Report (TTE) Patient Name COTY Date of Study 06/16/2022 TIP Plata Date of 1980 Gender Male Age 42 year(s) Race Room Number 430 Height: 73 inch, 185.42 cm Corporate ID [id number] Weight: 172 pounds, 78 kg # Patient Acct [id number] BSA: 2.02 m^2 BMI: 22.69 # kg/m^2 MR # [id number] Sponge Hooker FamTanner khan Interpreting Physician Alec Cheung Fellow Referring Nurse Practitioner Interpreting Referring Physician Beverly Flores Type of Study TTE procedure:2D Echocardiogram, Doppler, Color Doppler. Procedure Date Date: 06/16/2022 Start: 11:00 AM Study Location: [facility] Indications:Endocarditis. History / Tech. Comments: Lower Respiratory Pneumonia, [...] velocity:0.09 m/s Lateral Wall E' velocity:0.10 m/s MAURA [employer] Phone: bon [employer] Phone: hiv Screenon [id number] Ag/AbNon-Reactive NONREACTIVEBON appruptComment on above:No laboratory evidence of HIV infection. If acute HIV infection is suspected, consider testing for HIV-1 RNA. B[facility]IAL HOSPITALLactate, Sepsison 75-40-8835Pbinac Acid, Sepsis, Whole Blood1.6 mmol/L0.5 - 1.9 mmol/LBON [facility]IAL HOSPITALB[facility] MRI CERVICAL SPINE W WO CONTRASTon [id number] MRI evidence of discitis- osteomyelitis or epidural abscess. Degenerative neural foraminal stenosis at C6-C7, on the left hand side. [facility] CONSOLIDATEDEXAMINATION: MRI OF THE CERVICAL SPINE WITHOUT AND [...] spinal canal stenosis or neural foraminal narrowing. [facility] Richard May MD - 06/16/2022 EXAMINATION: MRI OF THE [...] foraminal narrowing. IMPRESSION: No MRI evidence of discitis-osteomyelitis or epidural abscess. Degenerative neural foraminal stenosis at C6-C7, on the left hand side. [facility] [employer] Work Phone: b[facility] Work Phone: MRI LUMBAR SPINE W WO CONTRASTon [id number] MRI evidence of discitis-osteomyelitis or epidural abscess. 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 [facility] RIS CONSOLIDATEDEXAMINATION: MRI OF THE LUMBAR SPINE WITHOUT AND [...] L1. There is no MRI evidence of discitis-osteomyelitis and no abnormal enhancement is identified on [...] zone. A lateralized disc bulge results in shqm-ke-cwmvulpz narrowing of the left neural foramen. L4-L5: There is no significant disc protrusion, spinal canal stenosis or neural foraminal narrowing. L5-S1: There is no significant disc protrusion, spinal canal stenosis or neural foraminal narrowing. [facility] Richard May MD - 06/16/2022 EXAMINATION: MRI OF THE [...] L1. There is no MRI evidence of discitis-osteomyelitis and no abnormal enhancement is identified on [...] zone. A lateralized disc bulge results in efsj-dx-ashxutgi narrowing of the left neural foramen. L4-L5: There is no significant disc protrusion, spinal canal stenosis or neural foraminal narrowing. L5-S1: There is no significant disc protrusion, spinal canal stenosis or neural foraminal narrowing. IMPRESSION: No MRI evidence of discitis-osteomyelitis or epidural abscess. 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 [employer] Phone: MRI LUMBAR SPINE W WO CONTRASTOrdered By: Richard Haas on [id number] [employer] Phone: MRSA DNA Probe, Nasalon [id number], DNA, Nasal NegativeNEGATIVEBANNER CARDON CHIL[facility] appruptGolden Valley Memorial Hospitalment on above:NEGATIVE: MRSA DNA not detected by nucleic acid amplification. Results should be used as an adjunct to nosocomial control efforts to identify patients needing enhanced precautions. The test is not intended to identify patients with staphylococcal infections. Results should not be used to guide or monitor treatment for MRSA infections. Specimen Description.NASAL SWABFRANCISCAN CHILDREN'Se-[email or web address] CHILDREN'Se-[email or web address] No Panel Informationon [id number] Study observation (narrative)[employer] Phone: b appruptProcalcitoninon 06-16-2022 Interpretation and review of laboratory resultsAbnormalBANNER [facility] apprupt Procalcitonin0.21 ng/mLHighNINF - 0.09 ng/mLBANNER CARD[facility] CHILDREN'S [facility] appruptGolden Valley Memorial Hospitalment on above: Suspected Sepsis: <0.50 ng/mL Low likelihood of sepsis. 0.50-2.00 ng/mL Increased likelihood of sepsis. Antibiotics encouraged. >2.00 ng/mL High risk of sepsis/shock. Antibiotics strongly encouraged. Suspected Lower Resp Tract Infections: <0.24 ng/mL Low likelihood of bacterial infection. >0.24 ng/mL Increased likelihood of bacterial infection. Antibiotics encouraged. With successful antibiotic therapy, PCT levels should decrease rapidly. (Half- life of 24 to 36 hours.) Procalcitonin values from samples collected within the first 6 hours of systemic infection may still be low. Retesting may be indicated. Values from day 1 and day 4 can be entered into the Change in Procalcitonin Calculator (www.uslsjk-yko-zmlxztobpv.U4[employer]) to determine the patient's Mortality Risk Prognosis In healthy neonates, plasma Procalcitonin (PCT) concentrations increase gradually after , reaching peak values at about 24 hours of age then decrease to normal values below 0.5 ng/mL by 48-72 hours of age. [facility] Pi-Cardia [facility] HOSPITALInterpretation and review of laboratory resultsAbnormal FRANCISCAN CHILDREN'SStat [facility] HOSPITALProcalcitonin0.2 ng/mLHighNINF - 0.09 ng/mLFRANCISCAN CHILDREN'SStat [facility] on above: Suspected Sepsis: <0.50 ng/mL Low likelihood of sepsis. 0.50-2.00 ng/mL Increased likelihood of sepsis. Antibiotics encouraged. >2.00 ng/mL High risk of sepsis/shock. Antibiotics strongly encouraged. Suspected Lower Resp Tract Infections: <0.24 ng/mL Low likelihood of bacterial infection. >0.24 ng/mL Increased likelihood of bacterial infection. Antibiotics encouraged. With successful antibiotic therapy, PCT levels should decrease rapidly. (Half- life of 24 to 36 hours.) Procalcitonin values from samples collected within the first 6 hours of systemic infection may still be low. Retesting may be indicated. Values from day 1 and day 4 can be entered into the Change in Procalcitonin Calculator (www.jcvulp-xph-sebgghyxuv.U4[employer]) to determine the patient's Mortality Risk Prognosis In healthy neonates, plasma Procalcitonin (PCT) concentrations increase gradually after , reaching peak values at about 24 hours of age then decrease to normal values below 0.5 ng/mL by 48-72 hours of age. [facility] Pi-Cardia [facility] HOSPITALProtime-INRon 81-24-1512RZR Coag (Bld) [Relative time] 1.0 {INR}[facility] Pi-Cardia [facility] Medical Centerment on above: Therapeutic Range: Moderate Anticoagulant Intensity: INR = 2.0-3.0 High Anticoagulant Intensity: INR = 2.5-3.5 PT Coag (PPP) [Time]10.5 sBON SECOURS MERCY HEALTHBON SEC[facility] MERCY HEALTHSTREP SCREEN GROUP A THROATon 06-16-2022. pyogenes Ag Ql (Throat)NegativeNEGATIVEBON [facility]RS MERCY HEALTHComment on above:Rapid Strep A negative. A negative Rapid Group A Strep Screen result does not rule out the possibility of Group A Streptococci in the specimen. A Group A Strep DNA test is available upon request. Source.THROAT SWABBON SECOURS MERCY HEALTHBON [facility] MERCY HEALTHSputum gram stainon [id number] ExamDUPLICATE ORDERB[facility] MERCY HEALTHSpecimen Description.ASPIRATED SPUTUMBON SECOURS MERCY HEALTHBON SECOURS ST[facility] GOD HOSPITALY HEALTH Strep Pneumoniae Antigenon [id number].URINEBON [facility]RS MERCY HEALTHStrep pneumo AgNegativeB[facility] MERCY HEALTHComment on above:Strep pneumoniae antigen not detectedBON [facility]RS MERCY HEALTHUrinalysis with Reflex to Cultureon [id number] UrineNegativeNEGATIVEB[facility] MERCY HEALTHColor, UAYellow YellowBON [facility] MERCY HEALTHGlucose, UrNegativeNEGATIVEB[facility]CY HEALTHKetones Ql (U)NegativeNEGATIVEB[facility] MERCY HEALTHLeukocyte esterase Test strip Ql (U)NegativeNEGATIVEBON [facility] MERCY HEALTHNitrite, UrineNegative NEGATIVEB[facility] MERCY HEALTHpH, UA6.55 - 8B[facility] HEALTHProtein, UANegativeNEGATIVEB[facility]CY HEALTHSpecific Osprey, UA1.0211.005 - 1.03 [facility] HEALTHTurbidity UAClearClearBON [facility] MERCY HEALTHUrinalysis CommentsMicroscopic exam not performed based on chemical results unless requested in original order.[facility] HEALTHUrine HgbNegativeNEGATIVEBON [facility] MERCY HEALTHUrobilinogen, UrineNormalNormalBON [facility] MERCY HEALTHB[facility] HEALTHBasic Metabolic Panelon 03-28-2121Cobzy gap [Moles/Vol]11 mmol/L9 - 17 mmol/LBON [facility] MERCY HEALTHCalcium [Mass/Vol]9.9 mg/dL8.6 - 10.4 mg/dLBON [facility] MERCY HEALTHChloride [Moles/Vol]101 mmol/L98 - 107 mmol/LBON [facility] HEALTHCO2 [Moles/Vol]24 mmol/L20 - 31 mmol/LBON [facility] HEALTHCreatinine [Mass/Vol]0.8 mg/dL0.7 - 1.2 mg/dLBON SECOURS ST. JOHN OF GOD HOSPITALY HEALTHGFR >6060 - PINF mL/minBON SECOURS ST. [facility] GOD HOSPITALY HEALTHGFR Non->6060 - PINF mL/minB[facility] HEALTHGFR/1.73 sq M.predicted MDRD (S/P/Bld) [Vol rate/Area][facility] HOSPITALComment on above:Average GFR for 40-49 years old: 99 mL/min/1.73sq m Chronic Kidney Disease: <60 mL/min/1.73sq m Kidney failure: <15 mL/min/1.73sq m eGFR calculated using average adult body mass. Additional eGFR calculator available at: http://www.G3/multiple_crcl_2011.htm Glucose [Mass/Vol]105 mg/eHZosw47 - 99 mg/dLB[facility] Interpretation and review of laboratory resultsAbnormalB[facility] Potassium [Moles/Vol]4.2 mmol/L3.7 - 5.3 mmol/LBON SECGEORGETOWN BEHAVIORAL HOSPITALSodium [Moles/Vol]136 mmol/L135 - 144 mmol/LBON SECGEORGETOWN BEHAVIORAL HOSPITALUrea nitrogen (BldV) [Mass/Vol]15 mg/dL6 - 20 mg/dLBON SECOURS [facility] HOSPITALBON [facility] HOSPITALCBC with Auto Differentialon [id number] Eos #0.27B[facility] OF GOD HOSPITALY [facility] HOSPITALAbsolute Immature Granulocyte0.04B[facility] MERCY HEALTHAbsolute Lymph # 1.20B[facility] HEALTHAbsolute [place] #1.07[facility] [facility] HOSPITALY [facility] HOSPITALBasophils (Bld) [#/Vol]0.05 10*3/uLBON SECOURS MERCY HEALTHBasophils/100 WBC (Bld)1 %0 - 2 %[facility] [facility] HOSPITALY D[facility] MEMORIAL HOSPITALEosinophils/100 WBC (Bld)3 %1 - 4 %BON SEC[facility]IAL HOSPITALHematocrit (Bld) [Volume fraction]38.8 %Low40.7 - 50.3 %[facility] HOSPITALHemoglobin (Bld) [Mass/Vol]12.9 g/dLLow13 - 17 g/dLBON MARIETTA MEMORIAL HOSPITALImmature granulocytes/100 WBC (Bld)0 %0[facility] Interpretation and review of laboratory resultsAbnormalRIVERSIDE WALTER REED [facility]OSPITAL Lymphocytes/100 WBC (Bld)11 %Low24 - 43 %BON [facility] HOSPITALH (RBC) [Entitic mass]27.9 pg25.2 - 33.5 pgVCU HEALTH COMMUNITY MEMORIAL HOSPITALHC (RBC) [Mass/Vol] 33.2 g/dL28.4 - 34.8 g/dLBON MERCY HEALTH KINGS MILLS HOSPITALV (RBC) [Entitic vol]83.8 fL 82.6 - 102.9 fLRIVERSIDE WALTER REED HOSPITALMonocytes/100 WBC (Bld)10 %3 - 12 %R[facility] HOSPITALNRBC Automated0.00.0 per 100 WBCRIVERSIDE WALTER REED HOSPITAL Platelet distribution width (Bld) [Ratio]18.5 %High11.8 - 14.4 %R[facility] RE[facility] HOSPITALPlatelet mean volume (Bld) [Entitic vol]9.8 fL8.1 - 13.5 fLRIVERSIDE WALTER REED HOSPITALPlatelets (Bld) [#/Vol]224 10*3/uLRIVERSIDE WALTER REED HOSPITAL RBC (Bld) [#/Vol]4.63 10*6/uL4.21 - 5.77 m/uLRIVERSIDE WALTER REED HOSPITALRBC (Bld) [#/Vol]ANISOCYTOSIS PRESENTBON MARIETTA MEMORIAL HOSPITALSegmented neutrophils/100 WBC (Bld)75 %High36 - 65 %BON [facility]IAL HOSPITALSegs Absolute7.90BON [facility]ET[facility] MEMORIAL HOSPITALWBC (Bld) [#/Vol]10.5 10*3/uLSOVAH HEALTH - DANVILLECOVID-19, Rapidon [id number]-CoV-2 (COVID-19) RNA CHARO+probe Ql (Unsp spec)Not detectedNot DetectedRIVERSIDE WALTER REED HOSPITALComment on above: Rapid NAAT: The specimen is [...] management decisions. Fact sheet for Healthcare Providers: https://www.fda.gov/media/186134/download Fact sheet for Patients: https://www.fda.gov/media/111368/download Methodology: Isothermal Nucleic Acid Amplification Specimen Description.NASOPHARYNGEAL SWABBON appruptBANNER [facility]ARDON CHILDR[facility]ENTER appruptNE CHEST PULMONARY EMBOLISM W CONTRASTon [id number] by Akanksha Santoro MD on 06/15/2022 10:18 PM EDT ADDENDUM: There is mediastinal lymphadenopathy best visualized in subcarinal location which are likely reactive to abnormalities within the lungs. [facility] apprupt Work Phone: No evidence of pulmonary embolism. [...] findings are most likely due to atelectasis. [facility] RIS CONSOLIDATEDEXAMINATION: CTA OF THE CHEST 06/15/2022 9:04 pm [...] No acute bone or soft tissue abnormality. Akanksha Bhatt MD - 06/15/2022 EXAMINATION: CTA OF THE [...] findings are most likely due to atelectasis. [employer] Phone: radiology Study observation (narrative)[employer] Phone: cT CHEST PULMONARY EMBOLISM W CONTRASTOrdered By: Akanksha Santoro on [id number] [employer] Phone: Hepatic Function Panelon [id number] [Mass/Vol] 3.4 g/dLLow3.5 - 5.2 g/dLBON appruptAlbumin/Globulin [Mass ratio] 0.8 {ratio}Low1 - 2.5BON appruptALP (Bld) [Catalytic activity/Vol] 85 U/L40 - 129 U/LBON appruptALT [Catalytic activity/Vol]22 U/L5 - 41 U/LBON appruptAST [Catalytic activity/Vol]16 U/LNINF - 40 U/LBON appruptBilirubin [Mass/Vol]0.41 mg/dL0.3 - 1.2 mg/dLBON appruptBilirubin, Indirect0.26 mg/dL0 - 1 mg/dLBON apprupt Bilirubin.indirect [Mass/Vol]0.15 mg/dLNINF - 0.31 mg/dLB[facility] Free PSA/Total PSA [Mass fraction]7.5 g/dL6.4 - 8.3 g/dLB[facility] Interpretation and review of laboratory resultsAbnoCommunity Health Systems BON [facility] MEMORIAL HOSPITALLactate, Sepsison 35-79-1379Tbgluc Acid, Sepsis, Whole Blood1.0 mmol/L0.5 - 1.9 mmol/LBON [facility] Lactic Acid, Sepsis, Whole Blood1.6 mmol/L0.5 - 1.9 mmol/LBON [facility] HOSPITALSedimentation Rateon [id number] and review of laboratory resultsAbnoCommunity Health SystemsSed Qyhc79YjbhUTGRIVERSIDE WALTER REED HOSPITALComment on above:ADDED [facility] AT VCUTroponinon 06-97-5737Pjvikgug, High Sensitivityng/L0 - 22 ng/LBON [facility] Comment on above: High Sensitivity Troponin values cannot be compared with other Troponin methodologies. Patients with high levels of Biotin oral intake (i.e >5mg/day) may have falsely decreased Troponin levels. Samples collected within 8 hours of biotin intake may require additional information for diagnosis. [facility] HOSPITALTroponin, High Sensitivityng/L0 - 22 ng/LBON [facility]TA [facility]ORIAL HOSPITALComment on above: High Sensitivity Troponin values cannot be compared with other Troponin methodologies. Patients with high levels of Biotin oral intake (i.e >5mg/day) may have falsely decreased Troponin levels. Samples collected within 8 hours of biotin intake may require additional information for diagnosis. [facility] HOSPITALXR CHEST (2 VW)on 73-73-3376Bzszlbnro opacity in the right infrahilar region compared other studies which could represent a small area of atelectasis, pneumonia or scarring in this area. Radiographic follow-up may be helpful. [facility] RIS CONSOLIDATEDEXAMINATION: TWO XRAY VIEWS OF THE CHEST 06/15/2022 [...] cardiomediastinal silhouette and pulmonary vessels appear normal. Dre Baumann MD - 06/15/2022 EXAMINATION: TWO XRAY VIEWS [...] this area. Radiographic follow-up may be helpful. [employer] Work Phone: radiology Study observation (narrative)[employer] Phone: XR CHEST (2 VW)Ordered By: Dre Gonsalves on 06-15-2022 [employer] Phone: CBC with Auto Differentialon [id number] Eos # 0.20BON SECOURS Rankomat.plAbsolute Immature Granulocyte0.03BON SECOURS Rankomat.plAbsolute Lymph #1.03LowBON SECOURS Rankomat.plAbsolute [place] #0.91BON SECOURS Rankomat.plBasophils (Bld) [#/Vol]0.03 10*3/uLBON SECe-Merges.com Basophils/100 WBC (Bld)0 %0 - 2 %FlavourlyEosinophils/100 WBC (Bld)2 %1 - 4 %[facility] MERCY HEALTHHematocrit (Bld) [Volume fraction]38.5 % Low40.7 - 50.3 %[facility] HOSPITALHemoglobin (Bld) [Mass/Vol]12.2 g/dLLow 13 - 17 g/dLBON MARIETTA MEMORIAL HOSPITALImmature granulocytes/100 WBC (Bld)0 %0RIVERSIDE WALTER REED HOSPITALInterpretation and review of laboratory resultsAbnormalBON MARIETTA MEMORIAL HOSPITALLymphocytes/100 WBC (Bld)9 %Low24 - 43 %BON [facility] HOSPITALH (RBC) [Entitic mass]27.2 pg25.2 - 33.5 pgBON MERCY HEALTH KINGS MILLS HOSPITALHC (RBC) [Mass/Vol]31.7 g/dL28.4 - 34.8 g/dLBON SECPROMEDICA TOLEDO HOSPITALV (RBC) [Entitic vol]85.9 fL82.6 - 102.9 fLRIVERSIDE WALTER REED HOSPITALMonocytes/100 WBC (Bld)8 %3 - 12 %R[facility] HOSPITALNRBC Automated0.00.0 per 100 WBCRIVERSIDE WALTER REED HOSPITALPlatelet distribution width (Bld) [Ratio]18.5 %High11.8 - 14.4 %B[facility] HOSPITALPlatelet mean volume (Bld) [Entitic vol]9.3 fL8.1 - 13.5 fLCUMBERLAND HOSPITAL HEALTHPlatelets (Bld) [#/Vol]181 10*3/uLBON MARIETTA MEMORIAL HOSPITALRBC (Bld) [#/Vol]4.48 10*6/uL4.21 - 5.77 m/uLRIVERSIDE WALTER REED HOSPITALSegmented neutrophils/100 WBC (Bld)81 %High36 - 65 %[facility] HOSPITALSegs Absolute9.54HighBON MARIETTA MEMORIAL HOSPITALWBC (Bld) [#/Vol]11.7 10*3/uL HighBON [facility] IN[facility]AN HOSPITALCBC with Diffon 06-13-2022 Abs. Basophil0.03 k/uLNormal0.00-0.20A[facility] Healthcare System GlenbeighComment on above: Performed By: #### CP, CDP #### [facility] [address] [place] [address] [employer]one Software Development Engineer: Rhea Aggarwal.Imm.Granulocyte0.03 k/uLNormal0.00-0.30A[facility] System GlenbeighComment on above:Performed By: #### CP, CDP #### [address] [place] [address] [employer]one Software Development Engineer: Rhea Aggarwal.Neutrophil (Seg)9.54 k/uLHigh1.50-8.10[facility] GlenbeighComment on above:Performed By: #### CP, CDP #### [address] [place] [address] [employer]one Software Development Engineer: Joelle Parker MDBasophils/100 WBC (Bld)0 %Normal0-2MMcCullough-Hyde Memorial Hospital HospitalComment on above:Performed By: #### CP, CDP #### [address] [place] [address] Drone Software Development Engineer: Joelle Parker MDEosinophils (Bld) [#/Vol]0.20 10*3/uLNormal 0.00-0.44[facility] GlenbeighComment on above:Performed By: #### CP, CDP #### [address] [place] [address] [employer]one Software Development Engineer: SHI Aggarwalosinophils/100 WBC (Bld)2 %Normal1-4[facility] HospitalComment on above:Performed By: #### CP, CDP #### [address] [place] [address] [employer]one Software Development Engineer: Joelle Parker MDErythrocyte distribution width (RBC) [Ratio]18.5 % High11.8-14.4[facility] GlenbeighComment on above:Performed By: #### CP, CDP #### [address] [place] [address] Drone Software Development Engineer: Joelle aPrker MDHematocrit (Bld) [Volume fraction]38.5 %Low 40.7-50.3MDayton Children's HospitalComment on above:Performed By: #### CP, CDP #### [address] [place] [address] Drone Software Development Engineer: Joelle Parker MDHemoglobin (Bld) [Mass/Vol]12.2 g/dLLow13.0-17.0 [facility] GlenbeighComment on above:Performed By: #### CP, CDP #### [address] [place] [address] [employer]one Software Development Engineer: Joelle Parker MDImmature granulocytes/100 WBC (Bld)0 %Zwkfmp7QopeuAcmc Healthcare System GlenbeighComment on above:Performed By: #### CP, CDP #### [address] [place] [address] Drone Software Development Engineer: Joelle Parker MDLymphocytes (Bld) [#/Vol]1.03 10*3/uLLow1.10-3.70 [facility] GlenbeighComment on above:Performed By: #### CP, CDP #### [address] [place] [address] Drone Software Development Engineer: Claudia Aggarwalmphocytes/100 WBC (Bld)9 %Iro23-77BsjncAcmc Healthcare System GlenbeighComment on above:Performed By: #### CP, CDP #### [address] [place] [address] [employer]one Software Development Engineer: NIKA AggarwalCH (RBC) [Entitic mass]27.2 xwUuyspp33.2-33.5 [facility] GlenbeighComment on above:Performed By: #### CP, CDP #### [address] [place], [place] [address] Drone Software Development Engineer: EMILY AggarwalC (RBC) [Mass/Vol]31.7 g/wSDgnirb21.4-34.8[facility] GlenbeighComment on above:Performed By: #### CP, CDP #### [address] [place] [address] Drone Software Development Engineer: NIKA AggarwalCV (RBC) [Entitic vol]85.9 oVVazgjh38.6-102.9 [facility] GlenbeighComment on above:Performed By: #### CP, CDP #### [address] [place] [address] Drone Software Development Engineer: NIKA Aggarwalonocytes (Bld) [#/Vol]0.91 10*3/uLNormal0.10-1.20 [facility] GlenbeighComment on above:Performed By: #### CP, CDP #### [address] [place] [address] Drone Software Development Engineer: NIKA Aggarwalonocytes/100 WBC (Bld)8 %Normal3-12[facility] System GlenbeighComment on above:Performed By: #### CP, CDP #### [address] [place] [address] [employer]one Software Development Engineer: Debra Aggarwalutrophil (Seg)81 %Cwef19-92AgshgAcmc Healthcare System Glenbeigh Comment on above:Performed By: #### CP, CDP #### [address] [place] [address] Drone Software Development Engineer: Joelle Parker MDNRBC Automated0.0 per 100 WBCNormal0.0A[facility] Healthcare System GlenbeighComment on above:Performed By: #### CP, CDP #### [address] [place], [place] [id number] [employer]one Software Development Engineer: LAVERNE Aggarwallatelet mean volume (Bld) [Entitic vol]9.3 fL Normal8.1-13.5[facility] HospitalComment on above:Performed By: #### CP, CDP #### [address] [place], [place] [id number] Drone Software Development Engineer: Junior Aggarwal ([facility]) [#/Vol]181 10*3/nCEmtakx374-432 [facility] HospitalComment on above:Performed By: #### CP, CDP #### [address] [place] [address] Drone Software Development Engineer: LESLIE Aggarwal ([facility]) [#/Vol]4.48 10*6/uLNormal4.21-5.77[facility] HospitalComment on above:Performed By: #### CP, CDP #### [address] [place], [place] [address] Drone Software Development Engineer: CARLEY Aggarwal ([facility]) [#/Vol]11.7 10*3/uLHigh3.5-11.3MMcCullough-Hyde Memorial Hospital HospitalComment on above:Performed By: #### CP, CDP #### [address] [place] [address] Drone Software Development Engineer: MALA Aggarwalhuntsman mental health institute Metabolic Profon 06-13-2022(cont.)[facility] HospitalComment on above:Result Comment: Average GFR for 40-49 years old: 99 mL/min/1.73sq m Chronic Kidney Disease: <60 mL/min/1.73sq m Kidney failure: <15 mL/min/1.73sq m eGFR calculated using average adult body mass. Additional eGFR calculator available at: http://www.Coinsetter.com/multiple_crcl_2012.htmPerformed By: #### CP, CDP #### [address] [place] [address] Drone Software Development Engineer: Joelle Parker MDAlbumin [Mass/Vol]3.8 g/dLNormal3.5-5.2MMcCullough-Hyde Memorial Hospital HospitalComment on above:Performed By: #### CP, CDP #### [facility] [address] [place] [address] [place] [address] [employer]one Software Development Engineer: Joelle Parker MDAlbumin/Glob Ratio0.9Low1.0-2.5[facility] Westernport HospitalComment on above:Performed By: #### CP, CDP #### [facility] [address] [place] [address] [place] [address] [employer]one Software Development Engineer: Francesca Aggarwalkaline Phos93 U/XYbsiig62-679Obilq Westernport HospitalComment on above:Performed By: #### CP, CDP #### [address] [place] [address] [employer]one Software Development Engineer: Joelle Parker MDALT [Catalytic activity/Vol]28 U/LNormal5-41[facility] HospitalComment on above:Performed By: #### CP, CDP #### [address] [place] [address] [employer]one Software Development Engineer: Joelle Parker MDAnion gap [Moles/Vol]11 mmol/LNormal9-17[facility] HospitalComment on above:Performed By: #### CP, CDP #### [address] [place] [address] [employer]one Software Development Engineer: Joelle Parker MDAST [Catalytic activity/Vol]19 U/LNormal<40[facility] HospitalComment on above:Performed By: #### CP, CDP #### [facility] [address] [place] [address] [place] [address] [employer]one Software Development Engineer: Joelle Parker MDBilirubin [Mass/Vol]0.39 mg/dLNormal0.3-1.2[facility] HospitalComment on above:Performed By: #### CP, CDP #### [facility] [address] [place] [address] [place] [address] [employer]one Software Development Engineer: Joelle Parker MDBUN/CRE Xqgiy57Xkcgeb4-91Erlbx [facility] Comment on above:Performed By: #### CP, CDP #### [address] [place], [place] 8[address]83 [employer]one Software Development Engineer: Joelle Parker MDCalcium [Mass/Vol]9.7 mg/dLNormal8.6-10.4[facility] GlenbeighComment on above:Performed By: #### CP, CDP #### [address] [place], [place] 3690683 [employer]one Software Development Engineer: MALA Aggarwalhloride [Moles/Vol]101 mmol/PZjtcpx29-168JpowiAcmc Healthcare System GlenbeighComment on above:Performed By: #### CP, CDP #### [address] [place], [place] 8[address]183 [employer]one Software Development Engineer: Joelle Parker MDCO2 [Moles/Vol]25 mmol/DWsmnbl53-80HmpoeAcmc Healthcare System GlenbeighComment on above:Performed By: #### CP, CDP #### [address] [place], [place] [address] Drone Software Development Engineer: MALA Aggarwalreatinine [Mass/Vol]0.85 mg/dLNormal0.70-1.20 [facility] GlenbeighComment on above:Performed By: #### CP, CDP #### [facility] [address] [place] [address] [place] [place], [place] 8[address]83 [employer]one Software Development Engineer: BIGG Aggarwal, Amer>60Normal>60[facility] Comment on above:Performed By: #### CP, CDP #### [facility] [address] [place] [address] [place] [place], [place] [address]83 [employer]one Software Development Engineer: BIGG Aggarwal,non Amer>60Normal>60[facility] GlenbeighComment on above:Performed By: #### CP, CDP #### [address] [place], [place] [address]83 [employer]one Software Development Engineer: Joelle Parker MDGlucose [Mass/Vol]106 mg/rIJwjq66-27Ycpmj [facility] HospitalComment on above:Performed By: #### CP, CDP #### [address] [place], [place] [address] [employer] Software Development Engineer: Joelle Parker MDPotassium [Moles/Vol]4.3 mmol/LNormal3.7-5.3[facility] HospitalComment on above:Performed By: #### CP, CDP #### [address] [place], [place] [address] Drone Software Development Engineer: Joelle Parker MDProtein [Mass/Vol]8.2 g/dLNormal6.4-8.3[facility] HospitalComment on above:Performed By: #### CP, CDP #### [address] [place], [place] 36[address] Drone Software Development Engineer: QUINCY Aggarwalodium [Moles/Vol]137 mmol/YOjkgsh272-137RvubhAcmc Healthcare System GlenbeighComment on above:Performed By: #### CP, CDP #### [address] [place], [place] [address] Drone Software Development Engineer: QUINCY Aggarwaltaging:[facility] HospitalComment on above:Result Comment: Stage 1: Some kidney damage normal GFR Stage 2: Mild kidney damage GFR 60-89 Stage 3: Moderate kidney damage GFR 30-59 Stage 4: Severe kidney damage GFR 15-29 Stage 5: Severe kidney damage GFR <15 ESRD - chronic treatment by dialysis or transplantPerformed By: #### CP, CDP #### [address] [place], [place] 6154283 Drone Software Development Engineer: Joelle Parker MDUrea nitrogen [Mass/Vol]15 mg/dLNormal6-20[facility] HospitalComment on above:Performed By: #### CP, CDP #### [facility] [address] [place] [address] Drone Software Development Engineer: Joelle Parker [facility] CUSHINGomprehensive Metabolic Panelon [id number] [Mass/Vol]3.8 g/dL3.5 - 5.2 g/dLBON [facility] HEALTHAlbumin/Globulin [Mass ratio]0.9 {ratio}Low1 - 2.5B[facility] HOSPITALY HEALTHALP (Bld) [Catalytic activity/Vol]93 U/L40 - 129 U/LBON [facility]ITALY HEALTHALT [Catalytic activity/Vol]28 U/L5 - 41 U/LBON [facility]ITALY HEALTHAnion gap [Moles/Vol]11 mmol/L9 - 17 mmol/LBON [facility] HEALTHAST [Catalytic activity/Vol]19 U/L NINF - 40 U/LBON [facility] HEALTHBilirubin [Mass/Vol]0.39 mg/dL0.3 - 1.2 mg/dLBON SECOURS [facility] HOSPITALCalcium [Mass/Vol]9.7 mg/dL8.6 - 10.4 mg/dLBON [facility] HEALTHChloride [Moles/Vol]101 mmol/L98 - 107 mmol/LBON [facility] HEALTHCO2 [Moles/Vol]25 mmol/L20 - 31 mmol/LBON [facility] Creatinine [Mass/Vol]0.85 mg/dL0.7 - 1.2 mg/dLBON SECOURS [facility] HOSPITALFree PSA/Total PSA [Mass fraction]8.2 g/dL6.4 - 8.3 g/dLBON SECOURS ST[facility]OS[facility]ITALY HEALTHGFR >6060 - PINF mL/minB[facility] HEALTHGFR Non->6060 - PINF mL/minB[facility] HEALTHGlucose [Mass/Vol]106 mg/dL High70 - 99 mg/dLBON [facility] HEALTHInterpretation and review of laboratory resultsAbnormalBON SECOURS ST[facility]OSPITALY HEALTHPotassium [Moles/Vol]4.3 mmol/L3.7 - 5.3 mmol/LBON [facility]ITALY HEALTHSodium [Moles/Vol]137 mmol/L135 - 144 mmol/LBON [address] [facility]ITALY HEALTHUrea nitrogen (BldV) [Mass/Vol]15 mg/dL6 - 20 mg/dLBON [facility] nitrogen/Creatinine (Bld) [Mass ratio]189 - 20BON [facility] HOSPITALLaboratory - Chemistry and Chemistry - challengeon [id number]/1.73 sq M.predicted MDRD (S/P/Bld) [Vol rate/Area] [facility] HOSPITALComment on above:Average GFR for 40-49 years old: 99 mL/min/1.73sq m Chronic Kidney Disease: <60 mL/min/1.73sq m Kidney failure: <15 mL/min/1.73sq m eGFR calculated using average adult body mass. Additional eGFR calculator available at: http://www.G3/multiple_crcl_2011.htm Stage 1: Some kidney damage normal GFR Stage 2: Mild kidney damage GFR 60-89 Stage 3: Moderate kidney damage GFR 30-59 Stage 4: Severe kidney damage GFR 15-29 Stage 5: Severe kidney damage GFR <15 ESRD - chronic treatment by dialysis or transplant Cult,Blood [id number],BloodSpecimen Description .BLOOD Culture NO GROWTH 5 DAYS Report Status FINAL 05/22/2022NoThe MetroHealth SystemComment on above: Performed By: #### BC #### [facility] [address] [place] [address] Drone Software Development Engineer: Taylor Aggarwal,Bloodon [id number],BloodSpecimen Description .BLOOD Special Requests 10ML RIGHT HAND Culture POSITIVE Blood Culture DIRECT GRAM STAIN FROM BOTTLE: YEAST NATHANIEL ALBICANS (NOTE) Direct Gram Stain from bottle result called to and read back by: DR MORE @ 2229 ON . KE Report Status FINAL 05/21/2022The [facility]edo Medical CenterComment on above: Performed By: #### BC #### [facility] [address] [place] [address] Drone Software Development Engineer: Taylor Aggarwal,Bloodon [id number],BloodSpecimen Description .BLOOD Special Requests 20ML LEFT HAND Culture POSITIVE Blood Culture DIRECT GRAM STAIN FROM BOTTLE: YEAST NATHANIEL ALBICANS (NOTE) Direct Gram Stain from bottle result called to and read back by:VITA FRANZ [facility] DIRECTOR PHYSICAL [id number] 05-09-22 RB MIKA Report Status FINAL 05/11/2022The [facility] Toledo Medical CenterComment on above: Performed By: #### BC #### [facility] [address] [place] [address] Drone Software Development Engineer: Taylor Aggarwal, Bloodon [id number], BloodSpecimen Description .BLOOD Special Requests 20ML RIGHT HAND Culture NO GROWTH 5 DAYS Report Status FINAL 05/10/2022NoThe MetroHealth SystemComment on above: Performed By: #### BC #### [facility] [address] [place], [place] [address] [employer]one Software Development Engineer: KATIE Aggarwal ANKLE LEFT WO CONTRASTon . No evidence of acute osteomyelitis. Irregularity along the posterosuperior process of the calcaneus is likely postsurgical. 2. Partial-thickness tearing of the insertional Achilles tendon involving approximately 1/3 of the tendon thickness. Moderate to advanced Achilles tendinopathy. [facility] RIS CONSOLIDATEDEXAMINATION: MRI OF THE LEFT ANKLE WITHOUT CONTRAST, [...] synovial process. The Lisfranc ligament is intact. [facility] Chau Valdez MD - 05/08/2022 EXAMINATION: MRI OF THE [...] tendon thickness. Moderate to advanced Achilles tendinopathy. [facility] [employer] Work Phone: MRI ANKLE LEFT WO CONTRASTOrdered By: Chau Jamesr on [id number] [employer] Work Phone: Basic Metabolic Panel w/ Reflex to MGon 05-07-2022 Anion gap [Moles/Vol]11 mmol/L9 - 17 mmol/LBON [facility] HEALTHCalcium [Mass/Vol]8.9 mg/dL8.6 - 10.4 mg/dLBON [facility] HEALTHChloride [Moles/Vol] 105 mmol/L98 - 107 mmol/LBON [facility] HEALTHCO2 [Moles/Vol]21 mmol/L20 - 31 mmol/LBON [facility] HOSPITALCreatinine [Mass/Vol]0.62 mg/dLLow0.70 - 1.20 mg/dLBON [facility]ETTA [facility]ORIAL HOSPITALGFR >60>60 mL/minRIVERSIDE WALTER REED HOSPITALGFR Non->60>60 mL/minRIVERSIDE WALTER REED HOSPITALGFR/1.73 sq M.predicted MDRD (S/P/Bld) [Vol rate/Area][facility] HOSPITALComment on above:Average GFR for 40-49 years old: 99 mL/min/1.73sq m Chronic Kidney Disease: <60 mL/min/1.73sq m Kidney failure: <15 mL/min/1.73sq m eGFR calculated using average adult body mass. Additional eGFR calculator available at: http://www.G3/multiple_crcl_2012.htm Glucose [Mass/Vol]87 mg/dL70 - 99 mg/dLBON MARIETTA MEMORIAL HOSPITALInterpretation and review of laboratory resultsAbnormFort Belvoir Community HospitalPotassium [Moles/Vol]4.2 mmol/L3.7 - 5.3 mmol/LBON [facility] HOSPITALSodium [Moles/Vol] 137 mmol/L135 - 144 mmol/LBON [facility]ORIAL HOSPITALUrea nitrogen (BldV) [Mass/Vol]16 mg/dL6 - 20 mg/dLBON [facility] Cult,Urineon [id number],UrineSpecimen Description .CLEAN CATCH URINE Culture NO GROWTH Report Status FINAL 05/07/2022NoThe MetroHealth SystemComment on above: Performed By: #### BC #### [facility] [address] [place] [address] [employer]one Software Development Engineer: KATIE Aggarwal ANKLE LEFT WO CONTRASTon [id number] Study observation (narrative)[facility] Work Phone: [phone]-Plsgemoq Proteinon [id number] [Mass/Vol]36.1 mg/L High0.0 - 5.0 mg/LBON [facility] HEALTHInterpretation and review of laboratory resultsAbnormalBON [facility] HEALTHB[facility]ALTH Microscopic Urinalysison 05-06-2022-[facility]Y HEALTHBacteria, UATRACE AbnormalNoneBON SECFORMERLY K[facility]OS[facility]ITALY HEALTHEpithelial Cells UANoneBON [facility]FAY[facility] HEALTHInterpretation and review of laboratory resultsAbnormalBON [facility] HEALTHMucus, UATRACEAbnormalNoneBON SECOURS ST[facility]ITALY HEALTHRBC, UA[address] [facility]Y HEALTHWBC, UA[address] [facility]Y HEALTHB[facility]ALTH Sedimentation Rateon [id number] and review of laboratory results AbnormalBON SECOURS ST[facility]ITALY HEALTHSed Xuui48DskeJQY [facility]Y HEALTHUrinalysison [id number] UrineNegativeNEGATIVEBON [facility] HEALTHColor, UAYellowYellowBON [facility]FA[facility] HEALTHGlucose, Ur NegativeNEGATIVEBON SECFORMERLY [facility]ITALY HEALTHInterpretation and review of laboratory resultsAbnormalBON SECOURS ST[facility]ITALY HEALTHKetones Ql (U)NegativeNEGATIVEBON [facility]FAY[facility] HEALTHLeukocyte esterase Test strip Ql (U)NegativeNEGATIVEBON SECOURS ST[facility]ITALY HEALTHNitrite, UrineNegativeNEGATIVEBON [facility] HEALTHpH, UA6.5BON [facility] HEALTHProtein, UANegativeNEGATIVEBON [facility] HEALTHSpecific Osprey, UA<1.005LowBON [facility] HEALTHTurbidity UAClearClearBON [facility] HEALTHUrine HgbTRACEAbnormalNEGATIVEBON [facility] HEALTHUrobilinogen, UrineNormalNormalBON [facility] HEALTHBON SECFORMERLY [facility]ITALY HEALTHUrinalysis, Routineon [id number], SemiQt,UrNegativeNormalNEGAcmc Healthcare System Glenbeigh Comment on above:Performed By: #### BC #### [facility] [address] [place] [address] [employer]one Software Development Engineer: Nita Aggarwal, UrineTRACEAbMercy Health [facility] Comment on above:Performed By: #### BC #### [facility] [address] [place] [address] [place] [address] [employer]one Software Development Engineer: MALA Aggarwallarity (U)ClearNormalCLEARAcmc Healthcare System Glen[facility]igh Comment on above:Performed By: #### BC #### [facility] [address] [place] [address] [place] [address] [employer]one Software Development Engineer: MALA Aggarwalolor (U)YellowNormalYELMerYale New Haven Children's Hospital Comment on above:Performed By: #### BC #### [facility] [address] [place] [address] [place] [place], [place] [address] [employer] Software Development Engineer: Joelle Parker MDGlucose Ql (U)NegativeNormalNEGAcmc Healthcare System GlenbeighComment on above:Performed By: #### BC #### [address] [place], [place] 8698[address] [employer] Software Development Engineer: Joelle Parker MDKetones Ql (U)NegativeNormalNEGMerYale New Haven Children's HospitalComment on above:Performed By: #### BC #### [address] [place] [address] [employer] Software Development Engineer: Joelle Parker MDLeukocyte esterase Test strip Ql (U)NegativeNormal NEGAcmc Healthcare System GlenbeighComment on above:Performed By: #### BC #### [facility] [address] [place] [address] [place] [place], [place] 107[address] [employer] Software Development Engineer: Joelle Parker MDNitrite,UrNegativeNormalNEGAcmc Healthcare System Glenbeigh Comment on above:Performed By: #### BC #### [facility] [address] [place] [address] [place], [place] [address] [employer]one Software Development Engineer: Joelle Parker [facility],Ur6.6Jmvbgq5.0-9.0MerYale New Haven Children's HospitalComment on above:Performed By: #### BC #### [facility] [address] [place] [address] [place] [place], [place] 3[address] [employer] Software Development Engineer: LAVERNE Aggarwalrotein Ql (U)NegativeNormalNEGAcmc Healthcare System GlenbeighComment on above:Performed By: #### BC #### [facility] [address] [place] [address] [place] [place], [place] 67[address] [employer]one Software Development Engineer: QUINCY Aggarwalpec. Osprey,Ur<1.293Tsy4.010-1.020Acmc Healthcare System GlenbeighComment on above:Performed By: #### BC #### [facility] [address] [place] [address] [place] [address] [employer] Software Development Engineer: Joelle Parker MDUrobilinogen,UrNormalNormalNORMAcmc Healthcare System GlenbeighComment on above:Performed By: #### BC #### [address] [place] [address] [employer]one Software Development Engineer: Joelle Parker MDUrinalysis,Microon 05-06-2022-----NormalAcmc Healthcare System GlenbeighComment on above:Performed By: #### BC #### [address] [place] [address] [employer]one Software Development Engineer: Joelle Parker MDBacteriaTRACEAbKettering Health Hamilton Comment on above:Performed By: #### BC #### [facility] [address] [place] [address] [place] [address] [employer] Software Development Engineer: Joelle Parker MDEpithelial cells LM Ql (Urine sed)NoneNormal0-5 [facility] System GlenbeighComment on above:Performed By: #### BC #### [facility] [address] [place] [address] [place] [address] [employer] Software Development Engineer: NIKA Aggarwalucus StrandsTRACEAbKettering Health HamiltonComment on above:Performed By: #### BC #### [facility] [address] [place] [address] [place], [place] [address] [employer] Software Development Engineer: Joelle Parker MDUrine RBC's0 TO 5Ieofil8-4JidcoDayton Children's Hospital Comment on above:Performed By: #### BC #### [facility] [address] [place] [address] [employer] Software Development Engineer: Aftab Aggarwal WBC's0 TO 3Jwsvxl6-6LtlxhAcmc Healthcare System Glenbeigh Comment on above:Performed By: #### BC #### [facility] [facility] [address] [place] [address] Drone Software Development Engineer: Joelle Parker [facility] CUSHINGBC with Auto Differentialon [id number] Eos #0.03B[facility] HOSPITALAbsolute Immature Granulocyte0.06BON [facility] HOSPITALAbsolute Lymph #0.87LowBON [facility] - GIL[facility]ERTOURS [facility] HOSPITALAbsolute [place] #0.69 [facility] HOSPITALBasophils (Bld) [#/Vol]0.04 10*3/uLBON SECGEORGETOWN BEHAVIORAL HOSPITALBasophils/100 WBC (Bld)0 %0 - 2 %[facility] HOSPITALEosinophils/100 WBC (Bld)0 %Low1 - 4 %[facility] HOSPITALHematocrit (Bld) [Volume fraction] 33.7 %Low40.7 - 50.3 %[facility] SECGEORGETOWN [facility]AVIORAL HOSPITALHemoglobin (Bld) [Mass/Vol]10.6 g/dLLow13.0 - 17.0 g/dLBON SECGEORGETOWN BEHAVIORAL HOSPITALImmature granulocytes/100 WBC (Bld)0 %0BON [facility] - GIL[facility]ERTOURS [facility] HEALTHInterpretation and review of laboratory results AbnormalBON MARIETTA MEMORIAL HOSPITALLymphocytes/100 WBC (Bld)7 %Low24 - 43 %BON SECPROM[facility]OLEDO HOSPITALH (RBC) [Entitic mass]26.0 pg25.2 - 33.5 pgBON SECPROMEDICA TOLEDO HOSPITALHC (RBC) [Mass/Vol]31.5 g/dL28.4 - 34.8 g/dLBON SECPROMEDICA TOLEDO HOSPITALV (RBC) [Entitic vol]82.8 fL82.6 - 102.9 fLRIVERSIDE WALTER REED [facility]PITAL Monocytes/100 WBC (Bld)5 %3 - 12 %R[facility] HOSPITALNRBC Automated0.00.0 per 100 WBCRIVERSIDE WALTER REED HOSPITALPlatelet distribution width (Bld) [Ratio]15.7 %High11.8 - 14.4 %B[facility] HOSPITALPlatelet mean volume (Bld) [Entitic vol]8.9 fL8.1 - 13.5 fLCUMBERLAND HOSPITAL HEALTHPlatelets (Bld) [#/Vol]196 10*3/uLBON MARIETTA MEMORIAL HOSPITALRBC (Bld) [#/Vol]4.07 10*6/uLLow4.21 - 5.77 m/uL R[facility] W[facility] RE[facility] HOSPITALSegmented neutrophils/100 WBC (Bld)88 %High36 - 65 %R[facility]ERS[facility] WAL[facility] RE[facility] HOSPITALSegs Opbhtust11.77HighBON MARIETTA MEMORIAL HOSPITALWBC (Bld) [#/Vol]13.5 10*3/uLHighBON [facility] HOSPITALCBC with Diffon [id number]. Basophil0.04 k/uLNormal0.00-0.20[facility] Comment on above:Performed By: #### DIGNA, CMPX #### [address] [place] [id number] Drone Software Development Engineer: Rhea Aggarwal.Imm.Granulocyte0.06 k/uLNormal0.00-0.30[facility] GlenbeighComment on above:Performed By: #### DIGNA, CMPX #### [address] [place] [id number] [employer]one Software Development Engineer: Rhea Aggarwal.Neutrophil (Seg)11.77 k/uLHigh1.50-8.10[facility] GlenbeighComment on above:Performed By: #### DIGNA, CMPX #### [address] [place] [id number] [employer] Software Development Engineer: Joelle Parker MDBasophils/100 WBC (Bld)0 %Normal0-2MercSelect Medical Cleveland Clinic [facility], Edwin Shaw HospitalComment on above:Performed By: #### CDP, CMPX #### [address] [place], [facility]83 [employer] Software Development Engineer: Joelle Parker MDEosinophils (Bld) [#/Vol]0.03 10*3/uLNormal 0.00-0.44[facility] HospitalComment on above:Performed By: #### CDP, CMPX #### [address] [place], [place] [address] [employer]one Software Development Engineer: Joelle Parker MDEosinophils/100 WBC (Bld)0 %Low1-4[facility] HospitalComment on above:Performed By: #### CDP, CMPX #### [address] [place], [facility]83 [employer] Software Development Engineer: Joelle Parker MDErythrocyte distribution width (RBC) [Ratio]15.7 % High11.8-14.4[facility] HospitalComment on above:Performed By: #### CDP, CMPX #### [address] [place], [facility]83 [employer] Software Development Engineer: Joelle Praker MDHematocrit (Bld) [Volume fraction]33.7 %Low 40.7-50.3[facility] Westernport HospitalComment on above:Performed By: #### CDP, CMPX #### [address] [place], [place] [address] [employer]one Software Development Engineer: Joelle Parker MDHemoglobin (Bld) [Mass/Vol]10.6 g/dLLow13.0-17.0 [facility] HospitalComment on above:Performed By: #### CDP, CMPX #### [address] [place], [facility]83 [employer] Software Development Engineer: Joelle Parker MDImmature granulocytes/100 WBC (Bld)0 %Neinan0Edyba Tiffin HospitalComment on above:Performed By: #### CDP, CMPX #### [address] [place] [address] Drone Software Development Engineer: Claudia Aggarwalmphocytes (Bld) [#/Vol]0.87 10*3/uLLow1.10-3.70 [facility]ighComment on above:Performed By: #### CDP, CMPX #### [address] [place] [address] Drone Software Development Engineer: Severo Aggarwalhocytes/100 WBC (Bld)7 %Coo30-12IyyhrAcmc Healthcare System GlenbeighComment on above:Performed By: #### CDP, CMPX #### [address] [place] [address] Drone Software Development Engineer: NIKA AggarwalCH (RBC) [Entitic mass]26.0 tcKokeya93.2-33.5 [facility] GlenbeighComment on above:Performed By: #### DIGNA, CMPX #### [address] [place], [place] [address]83 [employer]one Software Development Engineer: NIKA AggarwalCHC (RBC) [Mass/Vol]31.5 g/mHDgulak13.4-34.8[facility] GlenbeighComment on above:Performed By: #### CDP, CMPX #### [address] [place] [address] Drone Software Development Engineer: NIKA AggarwalCV (RBC) [Entitic vol]82.8 dRChjimw28.6-102.9 [facility] GlenbeighComment on above:Performed By: #### DIGNA, CMPX #### [address] [place], [place] [address] [employer]one Software Development Engineer: NIKA Aggarwalonocytes (Bld) [#/Vol]0.69 10*3/uLNormal0.10-1.20 [facility] GlenbeighComment on above:Performed By: #### CDP, CMPX #### [address] [place], [place] [address] [employer]one Software Development Engineer: NIKA Aggarwalonocytes/100 WBC (Bld)5 %Normal3-12[facility]ighComment on above:Performed By: #### CDP, CMPX #### [address] [place], [place] 17[address] [employer]one Software Development Engineer: Murtaza Aggarwalophil (Seg)88 %Qexl70-14Ecfqj [facility] Comment on above:Performed By: #### CDP, CMPX #### [address] [place], [place] [phone] [employer]one Software Development Engineer: MANUEL Aggarwal Automated0.0 per 100 WBCNormal0.0[facility] GlenbeighComment on above:Performed By: #### CDP, CMPX #### [address] [place], [place] [address]83 [employer]one Software Development Engineer: Sushma Aggarwal mean volume (Bld) [Entitic vol]8.9 fL Normal8.1-13.5[facility] GlenbeighComment on above:Performed By: #### CDP, CMPX #### [address] [place], [place] [address]83 Drone Software Development Engineer: Bartolome Aggarwaltebhargav (Bld) [#/Vol]196 10*3/dUBibjea988-886 [facility] Glen[facility]ighComment on above:Performed By: #### CDP, CMPX #### [address] [place], [place] [address] [employer]one Software Development Engineer: DEE AggarwalBC (Bld) [#/Vol]4.07 10*6/uLLow4.21-5.77MerYale New Haven Children's HospitalComment on above:Performed By: #### CDP, CMPX #### [address] [place] [address] Drone Software Development Engineer: CARLEY Aggarwal (Bld) [#/Vol]13.5 10*3/uLHigh3.5-11.3[facility]lesex HospitalComment on above:Performed By: #### CDP, CMPX #### [facility] [address] [place] [address] Drone Software Development Engineer: Joelle Parker MDCT ANKLE LEFT W CONTRASTon [id number] ANKLE LEFT W CONTRASTEXAMINATION: CT OF THE LEFT ANKLE WITH CONTRAST [...] Signed by: Erasmo Domínguez MD 05/05/22 Final resultNormalMercy Westernport HospitalChronic erosive changes of the posterosuperior aspect of the calcaneus at the Achilles tendon insertion with superimposed acute erosions not excluded. 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 These findings may be sterile although septic bursitis and osteomyelitis cannot be excluded. No soft tissue gas. [facility] RIS CONSOLIDATEDEXAMINATION: CT OF THE LEFT ANKLE WITH CONTRAST [...] visualized aspects of the midfoot are unremarkable. [facility] Erasmo Arrington MD - 05/05/2022 EXAMINATION: CT OF THE [...] cannot be excluded. No soft tissue gas. [employer] Phone: radiology Study observation (narrative)[employer] Phone: cT ANKLE LEFT W CONTRASTOrdered By: Erasmo Domínguez on 08-23-4744TUV G[facility]Y [facility] Work Phone: Comp Metabolic Pr/rfx MGon 05-05-2022(cont.)Normal [facility]ighComment on above:Result Comment: Average GFR for 40-49 years old: 99 mL/min/1.73sq m Chronic Kidney Disease: <60 mL/min/1.73sq m Kidney failure: <15 mL/min/1.73sq m eGFR calculated using average adult body mass. Additional eGFR calculator available at: http://www.G3/multiple_crcl_2012.htmPerformed By: #### CDP, CMPX #### [facility] [address] [place] [address] Dr[place], [place] [phone] [employer]one Software Development Engineer: Joelle Parker MDAlbumin/Glob Ratio0.8Low1.0-2.5[facility] GlenbeighComment on above:Performed By: #### CDP, CMPX #### [facility] [address] [place] [address] Dr[place], [place] 09[address] [employer]one Software Development Engineer: Caitlin Aggarwalline Phos82 U/APavnpl86-689NxzgbAcmc Healthcare System GlenbeighComment on above:Performed By: #### CDP, CMPX #### [address] [place] [address] [employer]one Software Development Engineer: Joelle Parker MDBUN/CRE Uioff08Dadqaf1-55Hbqnm [facility] Comment on above:Performed By: #### CDP, CMPX #### [facility] [address] [place] [address] Dr[place], [place] 1537[address] [employer]one Software Development Engineer: BIGG Aggarwal, Amer>60Normal>60[facility] Comment on above:Performed By: #### CDP, CMPX #### [facility] [address] [place] [address] Dr. [place], [place] 7092283 [employer] Software Development Engineer: BIGG Aggarwal,non Amer>60Normal>60[facility] GlenbeighComment on above:Performed By: #### CDP, CMPX #### [address] [place], [place] [address] [employer] Software Development Engineer: Joelle Parker MDProtein [Mass/Vol]7.9 g/dLNormal6.4-8.3MercMilford HospitalComment on above:Performed By: #### CDP, CMPX #### [address] [place], [facility]83 Drone Software Development Engineer: QUINCY Aggarwaltaging:[facility] on above:Result Comment: Stage 1: Some kidney damage normal GFR Stage 2: Mild kidney damage GFR 60-89 Stage 3: Moderate kidney damage GFR 30-59 Stage 4: Severe kidney damage GFR 15-29 Stage 5: Severe kidney damage GFR <15 ESRD - chronic treatment by dialysis or transplantPerformed By: #### CDP, CMPX #### [address] [place], [place] [address] Drone Software Development Engineer: Joelle Parker MDUrea nitrogen [Mass/Vol]7 mg/dLNormal6-20[facility] GlenbeighComselect specialty hospital-[facility] on above:Performed By: #### CDP, CMPX #### [address] [place], [place] [address] Drone Software Development Engineer: Joelle Parker MDAlbumin [Mass/Vol]3.4 g/dLLow3.5-5.2BON [facility] on above:Performed By: #### CDP, CMPX #### [address] [place], [place] [address]383 Drone Software Development Engineer: Joelle Parker MDALT [Catalytic activity/Vol]17 U/LNormal5-41BON [facility] on above:Performed By: #### CDP, CMPX #### [address] [place] [address] Drone Software Development Engineer: Joelle Sturtz, MDAnion gap [Moles/Vol]9 mmol/LNormal9-17BON [facility] on above:Performed By: #### CDP, CMPX #### [address] [place], [place] [address]483 Drone Software Development Engineer: Joelle Parker MDAST [Catalytic activity/Vol]15 U/LNormal<40B[facility] on above:Performed By: #### CDP, CMPX #### [address] [place], [place] [address]783 Drone Software Development Engineer: Joelle Parker MDBilirubin [Mass/Vol]0.53 mg/dLNormal0.3-1.2BON [facility] on above:Performed By: #### CDP, CMPX #### [address] [place], [place] 7459483 [employer]one Software Development Engineer: MALA Aggarwalalcium [Mass/Vol]9.1 mg/dLNormal8.6-10.4BON [facility] on above:Performed By: #### CDP, CMPX #### [address] [place] [address] Drone Software Development Engineer: MALA Aggarwalhloride [Moles/Vol]100 mmol/GOsrjxt46-074KCE [facility] on above:Performed By: #### CDP, CMPX #### [address] [place], [place] 129[address]83 [employer]one Software Development Engineer: Joelle Parker MDCO2 [Moles/Vol]25 mmol/EEkaygt87-01WPN [facility] on above:Performed By: #### CDP, CMPX #### [address] [place], [place] 169[address]83 Drone Software Development Engineer: MALA Aggarwalreatinine [Mass/Vol]0.72 mg/dLNormal0.70-1.20BON [facility] on above:Performed By: #### CDP, CMPX #### [facility] [address] [place], [place] [address] Drone Software Development Engineer: Joelle Parker MDGlucose [Mass/Vol]111 mg/eESteq27-92JSTRiverside Shore Memorial Hospital on above:Performed By: #### CDP, CMPX #### [facility] [address] [place], [place] 5[address] Drone Software Development Engineer: LAVERNE Aggarwalotassium [Moles/Vol]3.6 mmol/LLow3.7-5.3BON [facility] on above:Performed By: #### CDP, CMPX #### [address] [place], [place] [address] Drone Software Development Engineer: QUINCY Aggarwalodium [Moles/Vol]134 mmol/WCwn726-166XQT [facility] on above:Performed By: #### CDP, CMPX #### [facility] [address] [place] [address] [place] [address] Drone Software Development Engineer: MALA Aggarwalomprehensive Metabolic Panel w/ Reflex to MGon [id number]/Globulin [Mass ratio]0.8 {ratio}LowBON MARIETTA MEMORIAL HOSPITALALP (Bld) [Catalytic activity/Vol]82 U/L40 - 129 U/LBON MARIETTA MEMORIAL HOSPITALFree PSA/Total PSA [Mass fraction]7.9 g/dL6.4 - 8.3 g/dLBON MARIETTA MEMORIAL HOSPITALGFR >60>60 mL/minRIVERSIDE WALTER REED HOSPITALGFR Non->60 >60 mL/minRIVERSIDE WALTER REED HOSPITALInterpretation and review of laboratory resultsAbnormalBON MARIETTA MEMORIAL HOSPITALUrea nitrogen (BldV) [Mass/Vol]7 mg/dL6 - 20 mg/dLBON MARIETTA MEMORIAL HOSPITALUrea nitrogen/Creatinine (Bld) [Mass ratio]10 B[facility] HOSPITALLaboratory - Chemistry and Chemistry - challengeon [id number]/1.73 sq M.predicted MDRD (S/P/Bld) [Vol rate/Area]BON [facility] on above:Average GFR for 40-49 years old: 99 mL/min/1.73sq m Chronic Kidney Disease: <60 mL/min/1.73sq m Kidney failure: <15 mL/min/1.73sq m eGFR calculated using average adult body mass. Additional eGFR calculator available at: http://www.G3/multiple_crcl_2012.htm Stage 1: Some kidney damage normal GFR Stage 2: Mild kidney damage GFR 60-89 Stage 3: Moderate kidney damage GFR 30-59 Stage 4: Severe kidney damage GFR 15-29 Stage 5: Severe kidney damage GFR <15 ESRD - chronic treatment by dialysis or transplant Lactate, Sepsison 51-68-8400Wyxysk Acid, Sepsis1.3 mmol/LNormal0.5-1.9[facility] on above:Performed By: #### LACDS #### [facility] [address] [place] [address] Drone Software Development Engineer: Joelle Parker MDLactic Acid, Sepsis1.3 mmol/L0.5 - 1.9 mmol/LBON [facility] CHEST WO CONTRASTon [id number] 1 cm nodule noted in the left upper lobe. New 2.3 cm nodule noted in the right middle lobe. These may represent recurrent septic emboli. Some residual scarring noted in the left apex, left upper lobe, and left lung base. The findings were sent to the Radiology Results Communication Center at 2:39 pm on 02/14/2022to be communicated to a licensed caregiver. [facility] RIS CONSOLIDATEDEXAMINATION: CT OF THE CHEST WITHOUT CONTRAST 02/14/2022 [...] Upper Abdomen: Unremarkable Soft Tissues/Bones: Unremarkable MHPN Hank Durbin MD - 02/14/2022 EXAMINATION: CT OF THE [...] 02/14/2022to be communicated to a licensed caregiver. [email or web address] Phone: radiology Study observation (narrative)[email or web address] Phone: ct CHEST WO CONTRASTOrdered By: Hank Red on [email or web address] Phone: ECHO Complete 2D W Doppler W Coloron [id number] Transthoracic Echocardiography Report (TTE) Patient Name COTY Date of Study 02/14/2022 TIP Plata Date of 1980 Gender Male Age 42 year(s) Race Room Number Height: 72 inch, 182.88 cm Corporate ID [id number] Weight: 174 pounds, 78.9 kg # Patient Acct [id number] BSA: 2.01 m^2 BMI: 23.6 kg/m^2 # MR # [id number] Sponge Hooker Elva Dejesus Interpreting Physician Alec Cheung Fellow Referring Nurse Practitioner Interpreting Referring Physician Tip Parker, Fellow COMMERCIAL ANNOUNCER-[employer]IVESTOCK LABORER Type of Study TTE procedure:2D Echocardiogram, M-Mode, Doppler, Color Doppler. Procedure Date Date: 02/14/2022 Start: 01:14 PM Study Location: [facility] Technical Quality: Fair visualization Indications:Endocarditis, Bacteremia and Rule out vegetation. History / [...] Peak Gradient: 7.4 mmHg (more content not included)...Alec Carney MD - 02/14/2022 [facility] Transthoracic Echocardiography Report (TTE) Patient Name COTY Date of Study 02/14/2022 TIP Boni Date of 1980 Gender Male Age 42 year(s) Race Room Number Height: 72 inch, 182.88 cm Corporate ID [id number] Weight: 174 pounds, 78.9 kg # Patient Acct [id number] BSA: 2.01 m^2 BMI: 23.6 kg/m^2 # MR # [id number] Sponge Hooker Elva Dejesus Interpreting Physician Alec Cheung Fellow Referring Nurse Practitioner Interpreting Referring Physician Tip Parker, Fellow COMMERCIAL ANNOUNCER-LIVESTOCK LABORER Type of Study TTE procedure:2D Echocardiogram, M-Mode, Doppler, Color Doppler. Procedure Date Date: 02/14/2022 Start: 01:14 PM Study Location: [facility] Technical Quality: Fair visualization Indications:Endocarditis, Bacteremia and Rule out vegetation. History / [...] Gradient: 3.57 mmHg Es (more content not included)...[employer] Work Phone: eCHO Complete 2D W Doppler W ColorOrdered By: Alec Cheung on [id number] Work Phone: basic Metabolic Panel w/ Reflex to MGon 01-30-2022 Anion gap [Moles/Vol]8 mmol/LLow9 - 17 mmol/LMercy HealthCalcium [Mass/Vol]7.8 mg/dLLow8.6 - 10.4 mg/dLMer HealthChloride [Moles/Vol]103 mmol/L98 - 107 mmol/LMercy HealthCO2 [Moles/Vol]23 mmol/L20 - 31 mmol/LMercy HealthCreatinine [Mass/Vol]0.88 mg/dL0.70 - 1.20 mg/dLMercy HealthGFR >60>60 mL/minMercy HealthGFR Non->60>60 mL/minThe Christ HospitalGFR/1.73 sq M.predicted MDRD (S/P/Bld) [Vol rate/Area]The [facility] HospitalComment on above:Average GFR for 40-49 years old: 99 mL/min/1.73sq m Chronic Kidney Disease: <60 mL/min/1.73sq m Kidney failure: <15 mL/min/1.73sq m eGFR calculated using average adult body mass. Additional eGFR calculator available at: http://www.G3/multiple_crcl_2011.htm Glucose [Mass/Vol]155 mg/dQEypv88 - 99 mg/dLThe Christ HospitalPotassium [Moles/Vol]3.9 mmol/L3.7 - 5.3 mmol/LMercSentara Obici HospitalSodium [Moles/Vol]134 mmol/FNwn046 - 144 mmol/LMercy The Jewish HospitalUrea nitrogen (BldV) [Mass/Vol]15 mg/dL6 - 20 mg/dLToledo Hospital with Auto Differentialon [id number] Eos #0.31[facility] Absolute Immature Granulocyte0.10The [facility] HospitalAbsolute Lymph #1.35[facility] Absolute [place] #1.77HighThe Christ HospitalBasophils (Bld) [#/Vol]0.00 10*3/uLThe Christ HospitalBasophils/100 WBC (Bld)0 %0 - 2 %[facility] HospitalEosinophils/100 WBC (Bld)3 %1 - 4 %The [facility] HospitalHematocrit (Bld) [Volume fraction]29.9 %Low40.7 - 50.3 %The Christ HospitalHemoglobin.gastrointestinal spec 1 Ql (Stl)10.2 g/dLLow13.0 - 17.0 g/dL The Christ HospitalImmature granulocytes/100 WBC (Bld)1 %Bcfo0D[address] [place] [address] Interpretation and review of laboratory resultsAbnormalThe Christ Hospital Lymphocytes/100 WBC (Bld)13 %Low24 - 44 %[facility] HospitalH (RBC) [Entitic mass] 32.6 pg25.2 - 33.5 pgMarietta Memorial HospitalHC (RBC) [Mass/Vol]34.1 g/dL28.4 - 34.8 g/dL Mercy HealthMCV (RBC) [Entitic vol]95.5 fL82.6 - 102.9 fLThe Christ Hospital Monocytes/100 WBC (Bld)17 %High1 - 7 %The Christ HospitalMorphology Adis (Bld) [Interp] ANISOCYTOSIS PRESENTThe Christ HospitalNRBC Automated0.00.0 per 100 WBCThe Christ Hospital Platelet distribution width (Bld) [Ratio]16.2 %High11.8 - 14.4 %[facility] Platelets (Bld) [#/Vol]See Reflexed IPF ResultThe Christ HospitalRBC (Bld) [#/Vol]3.13 10*6/uLLow4.21 - 5.77 m/uLThe Christ HospitalSegmented neutrophils/100 WBC (Bld)66 %36 - 66 %The Christ HospitalSegs Absolute6.87The Christ HospitalWBC (Bld) [#/Vol]10.4 10*3/uL [facility] HealthCKon [id number] [Catalytic activity/Vol]26 U/LLow39 - 308 U/German HospitalHepatic Function Panelon [id number] [Mass/Vol]1.8 g/dL Low3.5 - 5.2 g/dLThe Christ HospitalAlbumin/Globulin [Mass ratio]0.4 {ratio}LowThe Christ HospitalALP (Bld) [Catalytic activity/Vol]42 U/L40 - 129 U/German HospitalALT [Catalytic activity/Vol]15 U/L5 - 41 U/[facility] HealthAST [Catalytic activity/Vol] 29 U/L<40The Christ HospitalBilirubin [Mass/Vol]1.66 mg/dLHigh0.3 - 1.2 mg/dLThe Christ HospitalBilirubin, Indirect0.96 mg/dL0.00 - 1.00 mg/dLThe Christ Hospital Bilirubin.indirect [Mass/Vol]0.70 mg/dLHigh<0.31The Christ HospitalFree PSA/Total PSA [Mass fraction]6.4 g/dL6.4 - 8.3 g/dLThe Christ HospitalImmature Platelet Fractionon [id number] and review of laboratory resultsAbnormalThe Christ Hospital Platelet, Qwsodquuyqpo36YmxIhwuy HealthComment on above:ORDERED BY LABPlatelet, Immature Fraction3.3 %1.1 - 10.3 %[facility] [place] on above:ORDERED BY LAB [employer] MaterialsNo Panel Informationon [id number] and review of laboratory resultsAbnormalAurora Health Care Bay Area Medical CenterSURGICAL PATHOLOGY REPORTon [id number] Pathology Report-- Diagnosis -- LEFT CALCANEUS BONE, EXCISION: - SEVERE ACUTE AND CHRONIC CELLULITIS WITH GRANULATION TISSUE REACTION AND FIBROSIS (CHRONIC ACTIVE ABSCESS). - ACUTE AND CHRONIC OSTEOMYELITIS WITH REACTIVE AND DESTRUCTIVE BONE CHANGES AND MEDULLARY FIBROSIS. Edward Paz M.D. Electronically Signed [facility]/01/30/2022 Clinical Information Pre-op Diagnosis: SEPTIC BURSITIS LEFT [...] SURGICAL PATHOLOGY CONSULTATION Patient Name: TIP ANSARI [facility] Rec: [id number] Path Number: [id number] [employer] [facility] [employer] ANATOMIC PATHOLOGY [address] [place] [address]. [place], [place] [address] [facility] Area Medical CenterBasic Metabolic Panel w/ Reflex to MG on [id number] gap [Moles/Vol]10 mmol/L9 - 17 mmol/LMercy HealthCalcium [Mass/Vol]8.6 mg/dL8.6 - 10.4 mg/dLMercy HealthChloride [Moles/Vol]108 mmol/L High98 - 107 mmol/LMercy HealthCO2 [Moles/Vol]20 mmol/L20 - 31 mmol/LMercy HealthCreatinine [Mass/Vol]0.85 mg/dL0.70 - 1.20 mg/dLMercy HealthGFR >60>60 mL/minMercy HealthGFR Non->60>60 mL/minMercy HealthGFR/1.73 sq M.predicted MDRD (S/P/Bld) [Vol rate/Area]Mercy HealthComment on above:Average GFR for 40-49 years old: 99 mL/min/1.73sq m Chronic Kidney Disease: <60 mL/min/1.73sq m Kidney failure: <15 mL/min/1.73sq m eGFR calculated using average adult body mass. Additional eGFR calculator available at: http://www.G3/multiple_crcl_2011.htm Glucose [Mass/Vol]95 mg/dL70 - 99 mg/dLAvita Health System Ontario HospitalEstorian The Jewish HospitalPotassium [Moles/Vol]4.2 mmol/L3.7 - 5.3 mmol/LMercy HealthSodium [Moles/Vol]138 mmol/L135 - 144 mmol/L The Christ HospitalUrea nitrogen (BldV) [Mass/Vol]31 mg/dLHigh6 - 20 mg/dLFirelands Regional Medical Center South Campus [employer] CBC with Auto Differentialon [id number] Eos #0.27MerOdessa Memorial Healthcare CenterAbsolute Immature Granulocyte0.05The Christ HospitalAbsolute Lymph #1.01LowThe Christ HospitalAbsolute [place] #1.01MerOdessa Memorial Healthcare CenterBasophils (Bld) [#/Vol]0.05 10*3/uLMer [employer] Basophils/100 WBC (Bld)1 %0 - 2 %[facility] ImaginovaEosinophils/100 WBC (Bld)3 %1 - 4 % The Christ HospitalHematocrit (Bld) [Volume fraction]29.8 %Low40.7 - 50.3 %[facility] [employer] Hemoglobin.gastrointestinal spec 1 Ql (Stl)9.4 g/dLLow13.0 - 17.0 g/dLFirelands Regional Medical [facility] ImaginovaImmature granulocytes/100 WBC (Bld)1 %Pgwa9MaeqoThe Christ HospitalInterpretation and review of laboratory resultsAbnormalThe Christ HospitalLymphocytes/100 WBC (Bld)10 %Low 24 - 43 %[facility] ImaginovaMCH (RBC) [Entitic mass]28.0 pg25.2 - 33.5 pgThe Christ Hospital MCHC (RBC) [Mass/Vol]31.5 g/dL28.4 - 34.8 g/dLThe Christ HospitalMCV (RBC) [Entitic vol]88.7 fL82.6 - 102.9 fLFirelands Regional Medical [facility] ImaginovaMonocytes/100 WBC (Bld)10 %3 - 12 %Merc HealthNRBC Automated0.00.0 per 100 WBCFirelands Regional Medical Center South Campus HealthPlatelet distribution width (Bld) [Ratio]17.4 %High11.8 - 14.4 %[facility] HealthPlatelet mean volume (Bld) [Entitic vol]8.7 fL8.1 - 13.5 fLFirelands Regional Medical Center [facility] Campus HealthPlatelets (Bld) [#/Vol]131 10*3/uL LowFirelands Regional Medical [facility] Campus HealthRBC (Bld) [#/Vol]3.36 10*6/uLLow4.21 - 5.77 m/uLFirelands Regional [facility] HealthRBC (Bld) [#/Vol]ANISOCYTOSIS PRESENTThe Christ HospitalSegmented neutrophils/100 WBC (Bld) 76 %High36 - 65 %[facility] HealthSegs Absolute7.60Mer HealthWBC (Bld) [#/Vol]10.0 10*3/uLMorrow County Hospital HealthCKon [id number] [Catalytic activity/Vol]10 U/L Low39 - 308 U/[facility] HealthEKG 12 LeadOrdered By: Dorothy Pink on 01-29-2022 Atrial [id number] Health Work Phone: P Tdsv68bvvdnbwUljfq Health Work Phone: P-R Zcpwkutv449 [employer] Work Phone: Q-T Bhwkypwv196 [employer] Work Phone: [phone] Batxpqvc19 [employer] Health Work Phone: [phone] Calculation (Bazett)423 [employer] Work Phone: R Harx53paslodfXfodi Health Work Phone: [phone] Rdrj88mogiwtzScyfd Health Work Phone: Ventricular Xyty611IWYZwvau Health Work Phone: [employer] Work Phone: EKG 12 Leadon [id number] tachycardia Otherwise normal ECG No previous ECGs availableGALLUP INDI[facility] Dorothy Laird MD - 01/29/2022 Sinus tachycardia Otherwise normal ECG No previous ECGs availableThe Christ Hospital Work Phone: Hepatic Function Panelon [id number] [Mass/Vol] 2.6 g/dLLow3.5 - 5.2 g/dLThe Christ HospitalAlbumin/Globulin [Mass ratio]0.7 {ratio}Low The Christ HospitalALP (Bld) [Catalytic activity/Vol]88 U/L40 - 129 U/LMerc HealthALT [Catalytic activity/Vol]39 U/L5 - 41 U/LMercy HealthAST [Catalytic activity/Vol] 23 U/L<40The Christ HospitalBilirubin [Mass/Vol]0.38 mg/dL0.3 - 1.2 mg/dLThe Christ Hospital Bilirubin, Indirect0.27 mg/dL0.00 - 1.00 mg/dLThe Christ HospitalBilirubin.indirect [Mass/Vol]0.11 mg/dL<0.31The Christ HospitalFree PSA/Total PSA [Mass fraction]6.2 g/dL Low6.4 - 8.3 g/dLThe Christ HospitalNo Panel Informationon [id number] and review of laboratory resultsAbnormalRogers Memorial Hospital - Oconom[place] Glucose Fingerstickon [id number] [Mass/Vol]100 mg/dL75 - 110 mg/dLTomah Memorial HospitalBasi Metabolic Panel w/ Reflex to MGon [id number] gap [Moles/Vol]14 mmol/L9 - 17 mmol/LMercy HealthCalcium [Mass/Vol]8.9 mg/dL8.6 - 10.4 mg/dLThe Christ HospitalChloride [Moles/Vol]103 mmol/L98 - 107 mmol/LMercy Health CO2 [Moles/Vol]20 mmol/L20 - 31 mmol/LMercy HealthCreatinine [Mass/Vol]0.98 mg/dL0.70 - 1.20 mg/dLThe Christ HospitalGFR >60>60 mL/minThe Christ Hospital GFR Non->60>60 mL/minThe Christ HospitalGFR/1.73 sq M.predicted MDRD (S/P/Bld) [Vol rate/Area]The Christ HospitalComment on above:Average GFR for 40-49 years old: 99 mL/min/1.73sq m Chronic Kidney Disease: <60 mL/min/1.73sq m Kidney failure: <15 mL/min/1.73sq m eGFR calculated using average adult body mass. Additional eGFR calculator available at: http://www.G3/multiple_crcl_2012.htm Glucose [Mass/Vol]153 mg/kMWdkm04 - 99 mg/dLThe Christ HospitalInterpretation and review of laboratory resultsAbnormalFirelands Regional [facility] HealthPotassium [Moles/Vol]3.5 mmol/L Low3.7 - 5.3 mmol/LMercy HealthSodium [Moles/Vol]137 mmol/L135 - 144 mmol/LMercy HealthUrea nitrogen (BldV) [Mass/Vol]29 mg/dLHigh6 - 20 mg/dLAurora Health Care Bay Area Medical CenterCBC with Auto Differentialon [id number] Eos #0.24[facility] Absolute Immature Granulocyte0.08The Christ HospitalAbsolute Lymph #1.40[facility] Absolute [place] #0.46The Christ HospitalBasophils (Bld) [#/Vol]0.03 10*3/uLThe Christ Hospital Basophils/100 WBC (Bld)0 %0 - 2 %The Christ HospitalEosinophils/100 WBC (Bld)3 %1 - 4 % The Christ HospitalHematocrit (Bld) [Volume fraction]30.1 %Low40.7 - 50.3 %[facility] Hemoglobin.gastrointestinal spec 1 Ql (Stl)9.4 g/dLLow13.0 - 17.0 g/dLThe Christ HospitalImmature granulocytes/100 WBC (Bld)1 %Fhws0CvbufThe Christ HospitalInterpretation and review of laboratory resultsAbnoMercy HealthLymphocytes/100 WBC (Bld)18 %Low 24 - 43 %The Christ HospitalMCH (RBC) [Entitic mass]28.1 pg25.2 - 33.5 pgThe Christ Hospital MCHC (RBC) [Mass/Vol]31.2 g/dL28.4 - 34.8 g/dLThe Christ HospitalMCV (RBC) [Entitic vol]90.1 fL82.6 - 102.9 fLMercy HealthMonocytes/100 WBC (Bld)6 %3 - 12 %[facility] HealthNRBC Automated0.00.0 per 100 WBCFirelands Regional Medical Center South Campus HealthPlatelet distribution width (Bld) [Ratio]16.6 %High11.8 - 14.4 %[facility] HealthPlatelet mean volume (Bld) [Entitic vol]8.8 fL8.1 - 13.5 fLFirelands Regional Medical [facility] HealthPlatelets (Bld) [#/Vol]178 10*3/uL [facility] HealthRBC (Bld) [#/Vol]3.34 10*6/uLLow4.21 - 5.77 m/uLFirelands [facility] HealthRBC (Bld) [#/Vol]ANISOCYTOSIS PRESENTThe Christ HospitalSegmented neutrophils/100 WBC (Bld) 72 %High36 - 65 %The Christ HospitalSegs Absolute5.55Mer HealthWBC (Bld) [#/Vol]7.8 10*3/uLMercy HealthFirelands Regional Medical Center [facility] Campus HealthCKon [id number] [Catalytic activity/Vol]8 U/L Low39 - 308 U/LMercy HealthInterpretation and review of laboratory results AbnormalMorrow County Hospital HealthCulture, Blood 1on [id number] identified Cx Nom (Unsp spec)NO GROWTH 5 DAYSMercy HealthSpecial RequestsRIGHT FOREARM 20ML Merc HealthSpecimen Description.BLOODMorrow County Hospital HealthBacteria identified Cx Nom (Unsp spec)NO GROWTH 5 DAYSMer HealthSpecial RequestsRIGHT HAND 20MLMer HealthSpecimen Description.BLOODMorrow County Hospital HealthHepatic Function Panelon [id number] [Mass/Vol]3 g/dLLow3.5 - 5.2 g/dLFirelands Regional [facility] Campus Health Albumin/Globulin [Mass ratio]0.9 {ratio}LowMercy HealthALP (Bld) [Catalytic activity/Vol]96 U/L40 - 129 U/LMercy HealthALT [Catalytic activity/Vol]21 U/L5 - 41 U/LMercy HealthAST [Catalytic activity/Vol]10 U/L<40Mercy HealthBilirubin [Mass/Vol]mg/dLLow0.3 - 1.2 mg/dLMer HealthBilirubin, IndirectCan not be calculated0.00 - 1.00 mg/dLMercy HealthBilirubin.indirect [Mass/Vol]mg/dL<0.31 mg/dLThe Christ HospitalFree PSA/Total PSA [Mass fraction]6.4 g/dL6.4 - 8.3 g/dLThe Christ HospitalInterpretation and review of laboratory resultsAbnormalAurora Health Care Bay Area Medical CenterLactic Acidon [id number] Acid, Whole Blood1.6 mmol/L0.7 - 2.1 mmol/L [facility] HealthInterpretation and review of laboratory resultsAbnormal The Christ HospitalLactic Acid, Whole Blood4.9 mmol/LHigh0.7 - 2.1 mmol/LMercy Health The Christ HospitalMagnesiumon [id number] [Mass/Vol]1.7 mg/dL1.6 - 2.6 mg/dL [facility] Medical CenterBasic Metabolic Panel w/ Reflex to MGon [id number] gap [Moles/Vol]11 mmol/L9 - 17 mmol/LMercy HealthCalcium [Mass/Vol]9.1 mg/dL8.6 - 10.4 mg/dLFirelands Regional [facility] HealthChloride [Moles/Vol]101 mmol/L98 - 107 mmol/LMercy HealthCO2 [Moles/Vol]24 mmol/L20 - 31 mmol/LMercy HealthCreatinine [Mass/Vol] 0.93 mg/dL0.70 - 1.20 mg/dLFirelands Regional [facility] HealthGFR >60>60 mL/minFirelands Regional Medical Center South Campus HealthGFR Non->60>60 mL/minFirelands Regional Medical Center South Campus HealthGFR/1.73 sq M.predicted MDRD (S/P/Bld) [Vol rate/Area]The Christ HospitalComment on above:Average GFR for 40-49 years old: 99 mL/min/1.73sq m Chronic Kidney Disease: <60 mL/min/1.73sq m Kidney failure: <15 mL/min/1.73sq m eGFR calculated using average adult body mass. Additional eGFR calculator available at: http://www.G3/multiple_crcl_2012.htm Glucose [Mass/Vol]187 mg/cABhmc71 - 99 mg/dLThe Christ HospitalPotassium [Moles/Vol]4.4 mmol/L3.7 - 5.3 mmol/LMercy HealthSodium [Moles/Vol]136 mmol/L135 - 144 mmol/L The Christ HospitalUrea nitrogen (BldV) [Mass/Vol]25 mg/dLHigh6 - 20 mg/dLThe Christ Hospital CBC with Auto Differentialon [id number] Eos #0.20The Christ HospitalAbsolute Immature Granulocyte0.00The Christ HospitalAbsolute Lymph #1.39The Christ HospitalAbsolute [place] #0.79The Christ HospitalBasophils (Bld) [#/Vol]0.00 10*3/uLThe Christ Hospital Basophils/100 WBC (Bld)0 %0 - 2 %The Christ HospitalEosinophils/100 WBC (Bld)1 %1 - 4 % The Christ HospitalHematocrit (Bld) [Volume fraction]31.8 %Low40.7 - 50.3 %[facility] Hemoglobin.gastrointestinal spec 1 Ql (Stl)10.1 g/dLLow13.0 - 17.0 g/dLThe Christ HospitalImmature granulocytes/100 WBC (Bld)0 %0The Christ HospitalInterpretation and review of laboratory resultsAbnormalThe Christ HospitalLymphocytes/100 WBC (Bld)7 %Low 24 - 44 %[facility] HospitalH (RBC) [Entitic mass]27.5 pg25.2 - 33.5 pgThe Christ Hospital MCHC (RBC) [Mass/Vol]31.8 g/dL28.4 - 34.8 g/dLThe Christ HospitalMCV (RBC) [Entitic vol]86.6 fL82.6 - 102.9 fLThe Christ HospitalMonocytes/100 WBC (Bld)4 %1 - 7 %The Christ HospitalMorphology Adis (Bld) [Interp]ANISOCYTOSIS PRESENTThe Christ HospitalNRBC Automated0.00.0 per 100 WBCThe Christ HospitalPlatelet distribution width (Bld) [Ratio] 16.1 %High11.8 - 14.4 %The Christ HospitalPlatelet mean volume (Bld) [Entitic vol]9.2 fL8.1 - 13.5 fLThe Christ HospitalPlatelets (Bld) [#/Vol]201 10*3/uLThe Christ HospitalRBC (Bld) [#/Vol]3.67 10*6/uLLow4.21 - 5.77 m/uLThe Christ HospitalSegmented neutrophils/100 WBC (Bld)88 %High36 - 66 %The Christ HospitalSegs Rcjsmktk60.42High The Christ HospitalWBC (Bld) [#/Vol]19.8 10*3/uLHighMercy Memorial Hermann Southeast Hospitalcy HealthCKon [id number] [Catalytic activity/Vol]11 U/LLow39 - 308 U/[facility] HealthHepatic Function Panelon [id number] [Mass/Vol]3.1 g/dLLow3.5 - 5.2 g/dLFirelands [facility] HealthAlbumin/Globulin [Mass ratio]0.8 {ratio}LowThe Christ HospitalALP (Bld) [Catalytic activity/Vol]87 U/L40 - 129 U/LMercy HealthALT [Catalytic activity/Vol]27 U/L5 - 41 U/LMercy HealthAST [Catalytic activity/Vol]14 U/L<40 The Christ HospitalBilirubin [Mass/Vol]0.30 mg/dL0.3 - 1.2 mg/dLFirelands [facility] HealthBilirubin, Indirect0.21 mg/dL0.00 - 1.00 mg/dLFirelands Regional [facility] HealthBilirubin.indirect [Mass/Vol]0.09 mg/dL<0.31The Christ HospitalFree PSA/Total PSA [Mass fraction]7.2 g/dL6.4 - 8.3 g/dL The [facility] HospitalNo Panel Informationon [id number] and review of laboratory resultsAbnormalAurora Health Care Bay Area Medical CenterBasic Metabolic Panel w/ Reflex to MGon [id number] gap [Moles/Vol]12 mmol/L9 - 17 mmol/LMercy Health Calcium [Mass/Vol]9.5 mg/dL8.6 - 10.4 mg/dLMer HealthChloride [Moles/Vol]104 mmol/L98 - 107 mmol/LMercy HealthCO2 [Moles/Vol]21 mmol/L20 - 31 mmol/LMercy HealthCreatinine [Mass/Vol]0.95 mg/dL0.70 - 1.20 mg/dLFirelands Regional Medical [facility] HealthGFR >60>60 mL/minMer HealthGFR Non->60>60 mL/minThe Christ HospitalGFR/1.73 sq M.predicted MDRD (S/P/Bld) [Vol rate/Area]The Christ HospitalComment on above:Average GFR for 40-49 years old: 99 mL/min/1.73sq m Chronic Kidney Disease: <60 mL/min/1.73sq m Kidney failure: <15 mL/min/1.73sq m eGFR calculated using average adult body mass. Additional eGFR calculator available at: http://www.G3/multiple_crcl_2012.htm Glucose [Mass/Vol]123 mg/zQWjtr03 - 99 mg/dLThe Christ HospitalPotassium [Moles/Vol]4.2 mmol/L3.7 - 5.3 mmol/LMercSentara Obici HospitalSodium [Moles/Vol]137 mmol/L135 - 144 mmol/L The Christ HospitalUrea nitrogen (BldV) [Mass/Vol]26 mg/dLHigh6 - 20 mg/dLThe Christ Hospital CBC with Auto Differentialon [id number] Eos #0.42The Christ HospitalAbsolute Immature Granulocyte0.09The Christ HospitalAbsolute Lymph #1.63MerOdessa Memorial Healthcare CenterAbsolute [place] #1.11The Christ HospitalBasophils (Bld) [#/Vol]0.07 10*3/uLThe [facility] Hospital Basophils/100 WBC (Bld)1 %0 - 2 %The Christ HospitalEosinophils/100 WBC (Bld)5 %High1 - 4 %The Christ HospitalHematocrit (Bld) [Volume fraction]33.3 %Low40.7 - 50.3 %The [facility] HospitalHemoglobin.gastrointestinal spec 1 Ql (Stl)10.7 g/dLLow13.0 - 17.0 g/dL The [facility] HospitalImmature granulocytes/100 WBC (Bld)1 %Kezv2PqzarThe Christ Hospital Interpretation and review of laboratory resultsAbnormalThe [facility] Hospital Lymphocytes/100 WBC (Bld)20 %Low24 - 43 %[facility] HospitalH (RBC) [Entitic mass] 27.8 pg25.2 - 33.5 pgMarietta Memorial HospitalHC (RBC) [Mass/Vol]32.1 g/dL28.4 - 34.8 g/dL The [facility] HospitalMCV (RBC) [Entitic vol]86.5 fL82.6 - 102.9 fLThe Christ Hospital Monocytes/100 WBC (Bld)14 %High3 - 12 %The Christ HospitalNRBC Automated0.00.0 per 100 WBCThe Christ HospitalPlatelet distribution width (Bld) [Ratio]16.6 %High11.8 - 14.4 % The Christ HospitalPlatelet mean volume (Bld) [Entitic vol]8.7 fL8.1 - 13.5 fLThe Christ HospitalPlatelets (Bld) [#/Vol]183 10*3/uLThe Christ HospitalRBC (Bld) [#/Vol]3.85 10*6/uLLow4.21 - 5.77 m/[facility] HospitalRBC (Bld) [#/Vol]ANISOCYTOSIS PRESENTThe Christ HospitalSegmented neutrophils/100 WBC (Bld)59 %36 - 65 %The Christ HospitalSegs Absolute 4.87The Christ HospitalWBC (Bld) [#/Vol]8.2 10*3/uLMercy HealthFirelands Regional [facility] HealthCKon [id number] [Catalytic activity/Vol]10 U/LLow39 - 308 U/LMercy HealthCulture, Blood 1on [id number] identified Cx Nom (Unsp spec)NO GROWTH 5 DAYSMer HealthSpecial RequestsUNKNOWNMuniversity hospitals health system HealthSpecimen Description.BLOODHocking Valley Community Hospital HealthFLUORO FOR SURGICAL PROCEDURESon [id number] exam is complete. No Radiologist dictation. Please follow up with ordering provider. MHPN RIS CONSOLIDATEDHepatic Function Panelon [id number] [Mass/Vol]3.1 g/dLLow3.5 - 5.2 g/dLThe Christ HospitalAlbumin/Globulin [Mass ratio]0.6 {ratio}Low [facility] HealthALP (Bld) [Catalytic activity/Vol]99 U/L40 - 129 U/LMercy HealthALT [Catalytic activity/Vol]30 U/L5 - 41 U/LMercy HealthAST [Catalytic activity/Vol] 19 U/L<40Mer HealthBilirubin [Mass/Vol]0.21 mg/dLLow0.3 - 1.2 mg/dLThe Christ HospitalBilirubin, IndirectCan not be calculated0.00 - 1.00 mg/dLThe [facility] Hospital Bilirubin.indirect [Mass/Vol]mg/dL<0.31 mg/dLThe Christ HospitalFree PSA/Total PSA [Mass fraction]8.0 g/dL6.4 - 8.3 g/dLThe Christ HospitalNo Panel Informationon [id number] and review of laboratory resultsAbnormalTomah Memorial HospitalUS Heart Transesophagealon [id number] Echocardiography Report (GIANFRANCO) Patient Name COTY MIRANDA Date of Study 01/24/2022 A Date of 1980 Gender Male Age 42 year(s) Race Room Number 2009 Height: 72 inch, 182.88 cm Corporate ID [id number] Weight: 161 pounds, 73 kg # Patient Acct [id number] BSA: 1.94 m^2 BMI: 21.84 # kg/m^2 MR # [id number] Sponge Hooker AdeelKarin Interpreting Physician Gordo Rueda Heminder[employer] Fellow Gaye Lewis Referring Nurse Practitioner Interpreting Referring Physician MARISOL ANDREA, * Fellow Type of Study GIANFRANCO procedure:2D echocardiogram, Color Doppler, TRANSESOPHAGEAL ECHO. Procedure Date Date: 01/24/2022 Start: 10:42 AM Study Location: [facility] Technical Quality: Good visualization Indications:Endocarditis. History / Tech. Comments: Procedure explained to [...] effusion. Miscellaneous The aorta shows mild plaque formation.Gauri Cox MD - 01/26/2022 Transesophageal Echocardiography Report (GIANFRANCO) Patient Name COTY MIRANDA Date of Study 01/24/2022 A Date of 1980 Gender Male Age 42 year(s) Race Room Number 2009 Height: 72 inch, 182.88 cm Corporate ID [id number] Weight: 161 pounds, 73 kg # Patient Acct [id number] BSA: 1.94 m^2 BMI: 21.84 # kg/m^2 MR # [id number] Sponge Hooker Karin Denis Interpreting Physician Gordo Rueda [employer]inder[employer] Fellow Gaye Lewis Referring Nurse Practitioner Interpreting Referring Physician MARISOL ANDREA, * Fellow Type of Study GIANFRANCO procedure:2D echocardiogram, Color Doppler, TRANSESOPHAGEAL ECHO. Procedure Date Date: 01/24/2022 Start: 10:42 AM Study Location: [facility] Technical Quality: Good visualization Indications:Endocarditis. History / Tech. Comments: Procedure explained to patient. Patient Status: Inpatient Height: 72 inches Weight: 161 pounds BSA: 1.94 m^2 BMI: 21.84 kg/m^2 GIANFRANCO Performed By: Interpreting Physician Type of Anesthesia: Conscious sedation Allergies - Penicillin. - *Unlisted:([facility]). CONCLUSIONS Summary Normal left ventricular chamber dimension [...] effusion. Miscellaneous The aorta shows mild plaque formation.[employer] Work Phone: US Heart TransesophagealOrdered By: Gauri Guerrero on [id number] Work Phone: Basic Metabolic Panel w/ Reflex to MGon 01-25-2022 Anion gap [Moles/Vol]14 mmol/L9 - 17 mmol/LMercy HealthCalcium [Mass/Vol]9.0 mg/dL8.6 - 10.4 mg/dLGrabit HealthChloride [Moles/Vol]105 mmol/L98 - 107 mmol/L [employer] MaterialsCO2 [Moles/Vol]20 mmol/L20 - 31 mmol/LMercy HealthCreatinine [Mass/Vol]0.82 mg/dL0.70 - 1.20 mg/dLMerEstorian HealthGFR >60>60 mL/minMercy HealthGFR Non->60>60 mL/minMerEstorian HealthGFR/1.73 sq M.predicted MDRD (S/P/Bld) [Vol rate/Area]The Christ HospitalComment on above:Average GFR for 40-49 years old: 99 mL/min/1.73sq m Chronic Kidney Disease: <60 mL/min/1.73sq m Kidney failure: <15 mL/min/1.73sq m eGFR calculated using average adult body mass. Additional eGFR calculator available at: http://www.G3/multiple_crcl_2012.htm Glucose [Mass/Vol]109 mg/tRVvfa32 - 99 mg/dLThe Christ HospitalPotassium [Moles/Vol]4.4 mmol/L3.7 - 5.3 mmol/LMercy The Jewish HospitalSodium [Moles/Vol]139 mmol/L135 - 144 mmol/L The Christ HospitalUrea nitrogen (BldV) [Mass/Vol]19 mg/dL6 - 20 mg/dLThe Christ HospitalCBC with Auto Differentialon [id number] Eos #0.34MerOdessa Memorial Healthcare CenterAbsolute Immature Granulocyte0.07The Christ HospitalAbsolute Lymph #1.54MerOdessa Memorial Healthcare CenterAbsolute [place] #1.01The Christ HospitalBasophils (Bld) [#/Vol]0.04 10*3/uLThe Christ Hospital Basophils/100 WBC (Bld)0 %0 - 2 %The Christ HospitalEosinophils/100 WBC (Bld)4 %1 - 4 % The Christ HospitalHematocrit (Bld) [Volume fraction]34.5 %Low40.7 - 50.3 %[facility] Hemoglobin.gastrointestinal spec 1 Ql (Stl)10.6 g/dLLow13.0 - 17.0 g/dLThe Christ HospitalImmature granulocytes/100 WBC (Bld)1 %Dknw3ZktolThe Christ HospitalInterpretation and review of laboratory resultsAbnormalThe Christ HospitalLymphocytes/100 WBC (Bld)17 %Low 24 - 43 %The Christ HospitalMCH (RBC) [Entitic mass]27.5 pg25.2 - 33.5 pgThe Christ Hospital MCHC (RBC) [Mass/Vol]30.7 g/dL28.4 - 34.8 g/dLThe Christ HospitalMCV (RBC) [Entitic vol]89.6 fL82.6 - 102.9 fLMercy HealthMonocytes/100 WBC (Bld)11 %3 - 12 %The Christ HospitalNRBC Automated0.00.0 per 100 WBCThe Christ HospitalPlatelet distribution width (Bld) [Ratio]16.6 %High11.8 - 14.4 %[facility] HealthPlatelet mean volume (Bld) [Entitic vol]9.2 fL8.1 - 13.5 fLFirelands Regional Medical [facility] HealthPlatelets (Bld) [#/Vol]189 10*3/uL [facility] HealthRBC (Bld) [#/Vol]3.85 10*6/uLLow4.21 - 5.77 m/uLFirelands Regional [facility] HealthRBC (Bld) [#/Vol]ANISOCYTOSIS PRESENTThe Christ HospitalSegmented neutrophils/100 WBC (Bld) 67 %High36 - 65 %The Christ HospitalSegs Absolute5.95[facility] HealthWBC (Bld) [#/Vol]9.0 10*3/uLMorrow County Hospital HealthCKon [id number] [Catalytic activity/Vol]9 U/L Low39 - 308 U/LMercy The Jewish HospitalCult,Bloodon [id number],BloodSpecimen Description .BLOOD Special Requests 5 ML R ELBOW Culture NO GROWTH 5 DAYS Report Status FINAL 01/25/2022NoThe MetroHealth SystemComment on above: Performed By: #### BC #### [facility] [address] [place] [address] [place] [address] [employer] Engineer: Taylor Aggarwal,BloodSpecimeconrado Description .BLOOD Special Requests 20 ML LEFT FOREARM Culture NO GROWTH 5 DAYS Report Status FINAL 01/25/2022Wood County HospitalComment on above: Performed By: #### BC #### [facility] [address] [place] [address] [employer] Development Engineer: MALA Aggarwalmercy health [facility], Blood 1on [id number] identified Cx Nom (Unsp spec)PositiveThe Christ HospitalBacteria identified Cx Nom (Unsp spec) DIRECT GRAM STAIN FROM BOTTLE: YEASTThe Christ HospitalBacteria identified Cx Nom (Unsp spec)Detected: Nathaniel albicans Detected: Methodology- Polymerase Chain Reaction (PCR)Mercy HealthBacteria identified Cx Nom (Unsp spec)NATHANIEL ALBICANSThe Christ HospitalBacteria identified Cx Nom (Unsp spec)(NOTE) Direct Gram Stain from bottle and Polymerase Chain Reaction (PCR) results called to and readback by: SRUTHI Sawyer RN AT 1925 ON 01/22/22.The Christ HospitalSpecial Bictbsit6YZ [facility] Specimen Description.BLOODMorrow County Hospital HealthSpecial Dmfgvhhk8TL R HAND [facility] HealthSpecial Fkujbjwz6BR R WRISTFirelands Regional Medical [facility] HealthHepatic Function Panelon [id number] [Mass/Vol]3 g/dLLow3.5 - 5.2 g/dLFirelands Regional [facility] HealthAlbumin/Globulin [Mass ratio]0.7 {ratio}LowFirelands Regional Medical Center South Campus HealthALP (Bld) [Catalytic activity/Vol]99 U/L40 - 129 U/LMercy HealthALT [Catalytic activity/Vol]31 U/L5 - 41 U/LMercy HealthAST [Catalytic activity/Vol]21 U/L<40[facility] HealthBilirubin [Mass/Vol]0.20 mg/dLLow 0.3 - 1.2 mg/dLFirelands Regional [facility] HealthBilirubin, IndirectCan not be calculated0.00 - 1.00 mg/dLFirelands Regional [facility] HealthBilirubin.indirect [Mass/Vol]mg/dL<0.31 mg/dLThe Christ HospitalFree PSA/Total PSA [Mass fraction]7.5 g/dL6.4 - 8.3 g/dLThe Christ HospitalInfectious Disease Interventionon [id number] therapyFirelands Regional [facility] HealthComment on above:Endocarditis nathaniel and recent MRSA The Christ HospitalLaboratory - Microbiology and Antimicrobial susceptibilityon [id number] identified Cx Nom (Unsp spec)NO GROWTH 5 DAYSFirelands Regional Medical Center South Campus HealthNo Panel Informationon [id number] Becker RN 01/25/2022 7:26 PM Picc placement note: PICC approved per ID. Prescribed IV Therapy= Multiple termite helper IV Abx/Antifungals Peripheral ultrasound assessment done, right [...] Bard 5fr dual lumen Power PICC SOLO2. History/Labs/Allergies Reviewed Placed By: Liban Becker - ANSELMO IV Team Assisted By: Darnell Hoyt Time out Performed using Two Identifiers Lot #[id number] Expiration date = Catheter size 5 hebrew Trimmed at 45cm Total length inserted 40cm [...] FAQ Catheter Associated Blood Stream Infections and [facility] [address] REV. 05/23 Nursing and Booklet left at bedside or in chart. Patient (Family or POA) acknowledged understanding of information taught and agreed to procedure. Teofilo Becker RN [facility] [employer] Work Phone: Interpretation and review of laboratory results AbnormalAurora Health Care Bay Area Medical CenterSpecimen Description.BLOODAurora Health Care Bay Area Medical CenterTip Confirmation System (TCS) and/ or Chest Xray for tip confirmationon [id number] Work Phone: [phone], Rapidon [id number]-CoV-2 (COVID-19) RNA CHARO+probe Ql (Unsp spec)Not detectedNot [facility] Clinic Orthopedic Centerment on above: Rapid NAAT: The specimen is [...] management decisions. Fact sheet for Healthcare Providers: https://www.fda.gov/media/196950/download Fact sheet for Patients: https://www.fda.gov/media/923265/download Methodology: Isothermal Nucleic Acid Amplification Specimen Description.NASOPHARYNGEAL SWABAurora Health Care Bay Area Medical CenterCatheterization and angiography procedure details panelon [id number] [employer] Work Phone: poc Glucose Fingerstickon [id number] [Mass/Vol] 97 mg/dL75 - 110 mg/dLAurora Health Care Bay Area Medical CenterCBC with Auto Differentialon [id number] Eos #0.13The [facility] HospitalAbsolute Immature Granulocyte0.03The [facility] HospitalAbsolute Lymph #1.03LowThe Christ HospitalAbsolute [place] #0.83[facility] Basophils (Bld) [#/Vol]0.03 10*3/uLThe Christ HospitalBasophils/100 WBC (Bld)1 %0 - 2 % [facility] HospitalEosinophils/100 WBC (Bld)2 %1 - 4 %The [facility] HospitalHematocrit (Bld) [Volume fraction]34.1 %Low40.7 - 50.3 %The [facility] HospitalHemoglobin.gastrointestinal spec 1 Ql (Stl)11.3 g/dLLow13.0 - 17.0 g/dLThe Christ HospitalImmature granulocytes/100 WBC (Bld)1 %Zvre9TxbzvThe Christ HospitalInterpretation and review of laboratory results AbnormalThe Christ HospitalLymphocytes/100 WBC (Bld)18 %Low24 - 43 %[facility] HospitalH (RBC) [Entitic mass]27.9 pg25.2 - 33.5 pgMarietta Memorial HospitalHC (RBC) [Mass/Vol]33.1 g/dL28.4 - 34.8 g/dLMercy HealthMCV (RBC) [Entitic vol]84.2 fL82.6 - 102.9 fL [facility] HospitalMonocytes/100 WBC (Bld)15 %High3 - 12 %The [facility] HospitalNRBC Automated0.0 0.0 per 100 WBCThe Christ HospitalPlatelet distribution width (Bld) [Ratio]16.1 %High 11.8 - 14.4 %The Christ HospitalPlatelet mean volume (Bld) [Entitic vol]9.8 fL8.1 - 13.5 fLFirelands Regional Medical Center South Campus HealthPlatelets (Bld) [#/Vol]121 10*3/uLLowThe Christ HospitalRBC (Bld) [#/Vol]4.05 10*6/uLLow4.21 - 5.77 m/uLThe Christ HospitalRBC (Bld) [#/Vol]ANISOCYTOSIS PRESENTThe Christ HospitalSegmented neutrophils/100 WBC (Bld)63 %36 - 65 %[facility] Segs Absolute3.62MerOdessa Memorial Healthcare CenterWBC (Bld) [#/Vol]5.7 10*3/uLAurora Health Care Bay Area Medical CenterHepatic Function Panelon [id number] [Mass/Vol]2.8 g/dLLow3.5 - 5.2 g/dLThe Christ HospitalAlbumin/Globulin [Mass ratio]0.6 {ratio}LowThe Christ HospitalALP (Bld) [Catalytic activity/Vol]85 U/L40 - 129 U/LMercy HealthALT [Catalytic activity/Vol]32 U/L5 - 41 U/LMerc HealthAST [Catalytic activity/Vol]29 U/L<40 The [facility] HospitalBilirubin [Mass/Vol]0.29 mg/dLLow0.3 - 1.2 mg/dLThe [facility] Hospital Bilirubin, Indirect0.2 mg/dL0.00 - 1.00 mg/dLThe Christ HospitalBilirubin.indirect [Mass/Vol]0.09 mg/dL<0.31The [facility] HospitalFree PSA/Total PSA [Mass fraction]7.4 g/dL 6.4 - 8.3 g/dLThe Christ HospitalInterpretation and review of laboratory results AbnormalAurora Health Care Bay Area Medical CenterMRI ANKLE LEFT W WO CONTRASTon . 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 [facility] RIS CONSOLIDATEDEXAMINATION: MRI OF THE LEFT ANKLE WITHOUT AND [...] alignment of the joints. No joint effusion. [facility] Addy Gupta MD - 01/23/2022 EXAMINATION: MRI OF THE [...] sprain of the intact anterior talofibular ligament. [employer] Phone: radiology Study observation (narrative)[employer]uta.[employer] Phone: MRI ANKLE LEFT W WO CONTRASTOrdered By: Addy Turner on [id number].co Phone: poc Glucose Fingerstickon [id number] [Mass/Vol] 122 mg/nRGxke35 - 110 mg/dLAvita Health System Ontario HospitalEstorian HealthInterpretation and review of laboratory resultsAbnormAultman Alliance Community HospitalEstorian HealthGlucose [Mass/Vol]99 mg/dL75 - 110 mg/dL [facility] GlenbeighEstorian HealthGlucose [Mass/Vol]141 mg/xKCdwg41 - 110 mg/dLFirelands Regional Medical Center South Campus HealthInterpretation and review of laboratory resultsAbnormAultman Alliance Community HospitalEstorian The Jewish HospitalRenal Function Panelon [id number] [Mass/Vol]2.8 g/dLLow3.5 - 5.2 g/dLFirelands Regional Medical Center South Campus HealthAnion gap [Moles/Vol]13 mmol/L9 - 17 mmol/LMercy HealthCalcium [Mass/Vol]8.9 mg/dL8.6 - 10.4 mg/dLMer HealthChloride [Moles/Vol]98 mmol/L98 - 107 mmol/LMercy HealthCO2 [Moles/Vol]21 mmol/L20 - 31 mmol/LMercy Health Creatinine [Mass/Vol]0.68 mg/dLLow0.70 - 1.20 mg/dLThe Christ HospitalGFR >60>60 mL/minThe Christ HospitalGFR Non->60>60 mL/minThe Christ HospitalGFR/1.73 sq M.predicted MDRD (S/P/Bld) [Vol rate/Area]The Christ HospitalComment on above:Average GFR for 40-49 years old: 99 mL/min/1.73sq m Chronic Kidney Disease: <60 mL/min/1.73sq m Kidney failure: <15 mL/min/1.73sq m eGFR calculated using average adult body mass. Additional eGFR calculator available at: http://www.G3/multiple_crcl_2011.htm Glucose [Mass/Vol]148 mg/lLNxng43 - 99 mg/dLThe Christ HospitalInterpretation and review of laboratory resultsAbnormalThe Christ HospitalPhosphate [Mass/Vol]2.7 mg/dL2.5 - 4.5 mg/dLThe Christ HospitalPotassium [Moles/Vol]4.2 mmol/L3.7 - 5.3 mmol/LMercy HealthSodium [Moles/Vol]132 mmol/ANaa627 - 144 mmol/LMercy HealthUrea nitrogen (BldV) [Mass/Vol]14 mg/dL6 - 20 mg/dLAurora Health Care Bay Area Medical CenterVancomycin Level, Randomon [id number] Rm<4.0ug/mLThe Christ HospitalComment on above:Higher trough serum vancomycin concentrations of 15-20 ug/mL are recommended for complicated infections such as bacteremia, endocarditis, osteomyelitis, meningitis, and hospital acquired pneumonia. The Christ HospitalHemoglobin A1Con [id number] [Mass/Vol]114 mg/dLThe [facility] Hospital Comment on above:The ADA and AACC recommend providing the estimated average glucose result to permit better patient understanding of their HBA1c result. HbA1c (Bld) [Mass fraction]5.6 %4.0 - 6.0 %[facility] Glucose Fingerstickon [id number] [Mass/Vol]95 mg/dL75 - 110 mg/dLTomah Memorial HospitalGlucose [Mass/Vol]179 mg/nZXejq59 - 110 mg/dLThe [facility] Hospital Interpretation and review of laboratory resultsAbnoMarshfield Medical Center/[facility] [place] Glucose [Mass/Vol]104 mg/dL75 - 110 mg/dLAurora Health Care Bay Area Medical CenterBasic Metabolic Panel w/ Reflex to MGon [id number] gap [Moles/Vol]14 mmol/L9 - 17 mmol/L The [facility] HospitalCalcium [Mass/Vol]8.6 mg/dL8.6 - 10.4 mg/dLThe Christ HospitalChloride [Moles/Vol]106 mmol/L98 - 107 mmol/LMercy HealthCO2 [Moles/Vol]20 mmol/L20 - 31 mmol/LMercy The Jewish HospitalCreatinine [Mass/Vol]0.73 mg/dL0.70 - 1.20 mg/dLThe [facility] GFR >60>60 mL/minThe Christ HospitalGFR Non->60>60 mL/minThe Christ HospitalGFR/1.73 sq M.predicted MDRD (S/P/Bld) [Vol rate/Area]The Christ HospitalComment on above:Average GFR for 40-49 years old: 99 mL/min/1.73sq m Chronic Kidney Disease: <60 mL/min/1.73sq m Kidney failure: <15 mL/min/1.73sq m eGFR calculated using average adult body mass. Additional eGFR calculator available at: http://www.G3/multiple_crcl_2011.htm Glucose [Mass/Vol]288 mg/oPTufu27 - 99 mg/dLThe Christ HospitalInterpretation and review of laboratory resultsAbnoMercy HealthPotassium [Moles/Vol]3.9 mmol/L 3.7 - 5.3 mmol/LMercy HealthSodium [Moles/Vol]140 mmol/L135 - 144 mmol/LMercy The Jewish HospitalUrea nitrogen (BldV) [Mass/Vol]17 mg/dL6 - 20 mg/dLAurora Health Care Bay Area Medical CenterC-Reactive Proteinon 07-14-0728FIG [Mass/Vol]51.6 mg/LHigh0.0 - 5.0 mg/L The [facility] HospitalInterpretation and review of laboratory resultsAbMayo Clinic Health System– OakridgeLactic Acidon [id number] and review of laboratory resultsAbCleveland Clinic Children's Hospital for RehabilitationLactic Acid, Whole Blood3.3 mmol/LHigh0.7 - 2.1 mmol/LMlutheran hospitaly [facility] Glucose Fingerstickon 30-53-4203Vlofrzp [Mass/Vol]129 mg/kNOhrn71 - 110 mg/dLThe Christ HospitalInterpretation and review of laboratory resultsAbnoWayne HealthCare Main Campus HealthProcalcitoninon 01-21-2022 Interpretation and review of laboratory resultsAbCleveland Clinic Children's Hospital for RehabilitationProcalcitonin 11.47 ng/mLHigh<0.09The Christ HospitalComment on above: Suspected Sepsis: <0.50 ng/mL Low likelihood of sepsis. 0.50-2.00 ng/mL Increased likelihood of sepsis. Antibiotics encouraged. >2.00 ng/mL High risk of sepsis/shock. Antibiotics strongly encouraged. Suspected Lower Resp Tract Infections: <0.24 ng/mL Low likelihood of bacterial infection. >0.24 ng/mL Increased likelihood of bacterial infection. Antibiotics encouraged. With successful antibiotic therapy, PCT levels should decrease rapidly. (Half- life of 24 to 36 hours.) Procalcitonin values from samples collected within the first 6 hours of systemic infection may still be low. Retesting may be indicated. Values from day 1 and day 4 can be entered into the Change in Procalcitonin Calculator (www.crpipg-cjt-pxjcxjsfcv.[employer]) to determine the patient's Mortality Risk Prognosis In healthy neonates, plasma Procalcitonin (PCT) concentrations increase gradually after , reaching peak values at about 24 hours of age then decrease to normal values below 0.5 ng/mL by 48-72 hours of age. The Christ HospitalProtime-INRon [id number] Coag (Bld) [Relative time]1.0 {INR}The Christ HospitalComment on above: Therapeutic Range: Moderate Anticoagulant Intensity: INR = 2.0-3.0 High Anticoagulant Intensity: INR = 2.5-3.5 PT Coag (PPP) [Time]11 sMFormerly Franciscan HealthcareSedimentation Rateon 01-21-2022 Interpretation and review of laboratory resultsAbnormalMercy HealthSed Rate58 mm High0 - 15 mmAurora Health Care Bay Area Medical CenterXR CALCANEUS LEFT (MIN 2 VIEWS)on . Soft tissue swelling along the heel of the left foot. No evidence of osteomyelitis. [facility] CONSOLIDATEDEXAMINATION: 3 XRAY VIEWS OF THE LEFT CALCANEUS 01/21/2022 5:51 am COMPARISON: 01/10/2022 HISTORY: ORDERING SYSTEM PROVIDED HISTORY: Wound TECHNOLOGIST PROVIDED HISTORY: Wound Reason for Exam: pain FINDINGS: There are areas of edema noted along the left heel. There is no bone erosion or periosteal reaction. No fracture. No retained radiopaque foreign body. [facility] Jefe Naqvi MD - 01/21/2022 EXAMINATION: 3 XRAY VIEWS [...] the left foot. No evidence of osteomyelitis. [employer] Phone: radiology Study observation (narrative)tuta.co Phone: XR CALCANEUS LEFT (MIN 2 VIEWS)Ordered By: Jefe Bassett on 70-72-9638Jjicztuta.co Phone: Brain Natri. Peptideon 30-54-8736Ezjbwbfpwhn peptide B (Bld) [Mass/Vol]93 pg/mLNormal<300Acmc Healthcare System GlenbeighComment on above:Result Comment: An age-independent cutoff point of 300 pg/ml has a 98% negative predictive value excluding acute heart failure.Performed By: #### CP, CDP #### [facility] [address] [place] [address] [employer] Software Development Engineer: Joelle Parker [facility] with Diffon [id number]. Basophil0.00 k/uL Normal0.0-0.2Mer[facility] Middlesex HospitalComment on above:Performed By: #### CP, CDP #### [address] [place] [id number] Drone Software Development Engineer: MDAbs. JasenImm.Granulocyte0.00 k/uLNormal0.00-0.30[facility] HospitalComment on above:Performed By: #### CP, CDP #### [address] [place] [address] [employer]one Software Development Engineer: Rhea Aggarwal.Neutrophil (Seg)9.64 k/uLHigh1.50-8.10[facility] HospitalComment on above:Performed By: #### CP, CDP #### [address] [place] [address] [employer] Software Development Engineer: Joelle Parker MDBasophils/100 WBC (Bld)0 %Normal0-2MMcCullough-Hyde Memorial Hospital HospitalComment on above:Performed By: #### CP, CDP #### [address] [place] [address] [employer] Software Development Engineer: Joelle Parker MDEosinophils (Bld) [#/Vol]0.21 10*3/uLNormal 0.00-0.44[facility] HospitalComment on above:Performed By: #### CP, CDP #### [address] [place] [address] [employer] Software Development Engineer: SHI Aggarwalosinophils/100 WBC (Bld)2 %Normal1-4[facility] HospitalComment on above:Performed By: #### CP, CDP #### [address] [place] [id number] [employer] Software Development Engineer: Jazmine Aggarwalmature granulocytes/100 WBC (Bld)0 %Ldhmta5Macuc Tiffin HospitalComment on above:Performed By: #### CP, CDP #### [address] [place] [address] [employer]one Software Development Engineer: Joelle Parker MDLymphocytes (Bld) [#/Vol]0.64 10*3/uLLow1.10-3.70 [facility] System GlenbeighComment on above:Performed By: #### CP, CDP #### [facility] [address] [place] [address] [place] [address] [employer] Software Development Engineer: Joelle Parker MDLymphocytes/100 WBC (Bld)6 %Vfa86-21VzsdsAcmc Healthcare System GlenbeighComment on above:Performed By: #### CP, CDP #### [address] [place], [place] [address] [employer] Software Development Engineer: NIKA Aggarwalonocytes (Bld) [#/Vol]0.11 10*3/uLNormal0.10-1.20 [facility] System GlenbeighComment on above:Performed By: #### CP, CDP #### [facility] [address] [place] [address] [place] [address] [employer] Software Development Engineer: NIKA Aggarwalonocytes/100 WBC (Bld)1 %Low3-12Acm[facility] Healthcare System GlenbeighComment on above:Performed By: #### CP, CDP #### [address] [place] [address] [employer] Software Development Engineer: NIKA Aggarwalorphology Adis (Bld) [Interp]ANISOCYTOSISNormal [facility] System GlenbeighComment on above:Result Comment: PRESENTPerformed By: #### CP, CDP #### [facility] [address] [place] [address] [place] [address] [employer] Software Development Engineer: Joelle Parker MDNeutrophil (Seg)91 %Pqjv67-89AjijkAcmc Healthcare System Glenbeigh Comment on above:Performed By: #### CP, CDP #### [facility] [address] [place] [address] Dr. [place], [facility] [employer] Software Development Engineer: Joelle Parker MDErythrocyte distribution width (RBC) [Ratio]16.4 % High11.8-14.4Acm[facility] Healthcare System GlenbeighComment on above:Performed By: #### CP, CDP #### [address] [place], [place] [id number] [employer] Software Development Engineer: Joelle Parker MDHematocrit (Bld) [Volume fraction]35.3 %Low 40.7-50.3MMcCullough-Hyde Memorial Hospital HospitalComment on above:Performed By: #### CP, CDP #### [address] [place], [place] [id number] [employer] Software Development Engineer: Joelle Parker MDHemoglobin (Bld) [Mass/Vol]11.1 g/dLLow13.0-17.0 [facility] System GlenbeighComment on above:Performed By: #### CP, CDP #### [address] [place], [facility]83 [employer] Software Development Engineer: NIKA AggarwalCH (RBC) [Entitic mass]27.5 paDxhere89.2-33.5 [facility] HospitalComment on above:Performed By: #### CP, CDP #### [address] [place], [place] [id number] [employer]one Software Development Engineer: NIKA AggarwalCHC (RBC) [Mass/Vol]31.4 g/zNZhseej00.4-34.8Acm[facility] Healthcare System GlenbeighComment on above:Performed By: #### CP, CDP #### [address] [place], [place] [id number] [employer] Software Development Engineer: NIKA AggarwalCV (RBC) [Entitic vol]87.6 aETfpdja12.6-102.9 [facility] HospitalComment on above:Performed By: #### CP, CDP #### [address] [place] [address] [employer] Software Development Engineer: CHERRY AggarwalBC Automated0.0 per 100 WBCNormal0.0[facility] HospitalComment on above:Performed By: #### NARESH, CDP #### [address] [place], [facility]83 [employer] Software Development Engineer: Sushma Aggarwal mean volume (Bld) [Entitic vol]8.7 fL Normal8.1-13.5Acmc Healthcare System GlenbeighComment on above:Performed By: #### NARESH, CDP #### [address] [place], [facility]83 [employer] Software Development Engineer: Junior Aggarwal (Bld) [#/Vol]130 10*3/tPWwc320-835Zdhnh Tiffin HospitalComment on above:Performed By: #### NARESH, CDP #### [address] [place], [facility]83 [employer] Software Development Engineer: LESLIE Aggarwal (Bld) [#/Vol]4.03 10*6/uLLow4.21-5.77[facility] HospitalComment on above:Performed By: #### NARESH, CDP #### [address] [place], [facility]83 [employer] Software Development Engineer: CARLEY Aggarwal (Bld) [#/Vol]10.6 10*3/uLNormal3.5-11.3[facility]port HospitalComment on above:Performed By: #### NARESH, CDP #### [address] [place], [facility] [employer] Software Development Engineer: Joelle Parker MDCT CHEST PULMONARY EMBOLISM W CONTRASTon [id number] CHEST PULMONARY EMBOLISM W CONTRASTEXAMINATION: CTA OF THE CHEST 01/20/2022 6:24 pm [...] Signed by: Amilcar Fang MD 01/20/[address] Charles Hospitalp Metabolic Pr/rfx MGon 01-20-2022 (cont.)[facility] HospitalComment on above:Result Comment: Average GFR for 40-49 years old: 99 mL/min/1.73sq m Chronic Kidney Disease: <60 mL/min/1.73sq m Kidney failure: <15 mL/min/1.73sq m eGFR calculated using average adult body mass. Additional eGFR calculator available at: http://www.Coinsetter.com/multiple_crcl_2012.htmPerformed By: #### CP, CDP #### [facility] [address] [place] [address] [employer]one Software Development Engineer: Francesca Aggarwalbumin [Mass/Vol]3.3 g/dLLow3.5-5.2[facility] Westernport HospitalComment on above:Performed By: #### CP, CDP #### [facility] [address] [place] [address] [place] [address] [employer]one Software Development Engineer: Joelle Parker MDAlbumin/Glob Ratio0.7Low1.0-2.5[facility] Westernport HospitalComment on above:Performed By: #### CP, CDP #### [facility] [address] [place] [address] [place] [address] [employer]one Software Development Engineer: Francesca Aggarwalkaline Zqir081 U/ERiwfqd30-640Fpvqc [facility]iffin HospitalComment on above:Performed By: #### CP, CDP #### [address] [place] [address] [employer]one Software Development Engineer: Joelle Parker MDALT [Catalytic activity/Vol]21 U/LNormal5-41[facility] HospitalComment on above:Performed By: #### CP, CDP #### [address] [place] [address] [employer]one Software Development Engineer: Joelle Parker MDAnion gap [Moles/Vol]7 mmol/LLow9-17[facility] HospitalComment on above:Performed By: #### CP, CDP #### [address] [place] [address] [employer]one Software Development Engineer: Joelle Parker MDAST [Catalytic activity/Vol]18 U/LNormal<40MerBethesda North Hospital HospitalComment on above:Performed By: #### CP, CDP #### [facility] [address] [place] [address] [place] [address] [employer]one Software Development Engineer: Joelle Parker MDBilirubin [Mass/Vol]0.55 mg/dLNormal0.3-1.2[facility] HospitalComment on above:Performed By: #### CP, CDP #### [facility] [address] [place] [address] [place] [address] [employer]one Software Development Engineer: Joelle Sturtz, MDBUN/CRE Mupdg95Tkko5-61IqwbdAcmc Healthcare System Glenbeigh Comment on above:Performed By: #### CP, CDP #### [facility] [address] [place] [address] Dr[address] [place], [place] [id number] [employer]one Software Development Engineer: Joelle Parker MDCalcium [Mass/Vol]9.1 mg/dLNormal8.6-10.4A[facility] System GlenbeighComment on above:Performed By: #### CP, CDP #### [facility] [address] [place] [address] [place], [place] [id number] [employer]one Software Development Engineer: Joelle Parker MDChloride [Moles/Vol]99 mmol/ORyhjuh06-360DacghAcmc Healthcare System GlenbeighComment on above:Performed By: #### CP, CDP #### [address] [place] [address] Drone Software Development Engineer: Joelle Parker MDCO2 [Moles/Vol]27 mmol/TIvwclm08-01Osode [facility]iffin HospitalComment on above:Performed By: #### CP, CDP #### [address] [place], [place] [address] [employer]one Software Development Engineer: MALA Aggarwalreatinine [Mass/Vol]0.70 mg/dLNormal0.70-1.20 [facility] System GlenbeighComment on above:Performed By: #### CP, CDP #### [facility] [address] [place] [address] [place], [place] 70[address]483 Drone Software Development Engineer: BIGG Aggarwal, Amer>60Normal>60[facility] Comment on above:Performed By: #### CP, CDP #### [facility] [address] [place] [address] Dr[place], [place] [id number] Drone Software Development Engineer: BIGG Aggarwal,non Amer>60Normal>60[facility] System GlenbeighComment on above:Performed By: #### CP, CDP #### [facility] [address] [place], [place] [address] Drone Software Development Engineer: Joelle Parekr MDGlucose [Mass/Vol]104 mg/wZRlgi27-92Kxhmp [facility]in HospitalComment on above:Performed By: #### CP, CDP #### [address] [place], [place] [address] [employer]one Software Development Engineer: Joelle Parker MDPotassium [Moles/Vol]4.3 mmol/LNormal3.7-5.3Mlutheran hospitaly [facility] HospitalComment on above:Performed By: #### CP, CDP #### [address] [place], [place] [address] [employer] Software Development Engineer: Joelle Parker MDProtein [Mass/Vol]8.3 g/dLNormal6.4-8.3[facility] Westernport HospitalComment on above:Performed By: #### CP, CDP #### [address] [place], [place] [address] [employer]one Software Development Engineer: QUINCY Aggarwalodium [Moles/Vol]133 mmol/GYth581-185Otasc [facility]iffin HospitalComment on above:Performed By: #### CP, CDP #### [address] [place], [place] [id number] Drone Software Development Engineer: QUINCY Aggarwaltaging:NormalMarietta Memorial Hospital HospitalComment on above:Result Comment: Stage 1: Some kidney damage normal GFR Stage 2: Mild kidney damage GFR 60-89 Stage 3: Moderate kidney damage GFR 30-59 Stage 4: Severe kidney damage GFR 15-29 Stage 5: Severe kidney damage GFR <15 ESRD - chronic treatment by dialysis or transplantPerformed By: #### CP, CDP #### [address] [place], [place] [address] Drone Software Development Engineer: Joelle Parker MDUrea nitrogen [Mass/Vol]17 mg/dLNormal6-20[facility] HospitalComment on above:Performed By: #### CP, CDP #### [facility] [address] [place] [address] Drone Software Development Engineer: CHING Aggarwal-Dimer Teston [id number]-Dimer Test2.69 mg/L FEU High0.00-0.59A[facility] Healthcare System GlenbeighComment on above:Result Comment: When combined with a low clinical [...] be more prevalent in patients with distal DVT.Performed By: #### CHANO #### [address] [place] [address] Drone Software Development Engineer: Joelle Parker MDFlu A/B Ag Detectionon [id number] A/B Ag DetectionSpecimen Description .NASOPHARYNGEAL SWAB Direct Exam NEGATIVE for Influenza A + B antigens. PCR testing to confirm this result is available upon request. Specimen will be saved in the laboratory for 7 days. Please call [phone] if PCR testing is indicated. Report Status FINAL 01/20/2022NormalAcmc Healthcare System GlenbeighComment on above: Performed By: #### DIGNA INFANTE #### [address] [place] [address] Drone Software Development Engineer: Joelle Parker MDLACTIC ACID, WHOLE BLOODon 01-20-2022 Interpretation and review of laboratory resultsAbnormalMercy HealthLactic Acid, Whole Blood2.5 mmol/LHigh0.7 - 2.1 mmol/LMercy HealthMercy HealthLaboratory - Chemistry and Chemistry - challengeon [id number].gastrointestinal spec 1 Ql (Stl)11.1 g/dLLow13.0 - 17.0 g/dLMercy HealthAlbumin [Mass/Vol]3.3 g/dLLow 3.5 - 5.2 g/dLMercy HealthAlbumin/Globulin [Mass ratio]0.7 {ratio}LowMercy HealthALP (Bld) [Catalytic activity/Vol]113 U/L40 - 129 U/LMercy HealthALT [Catalytic activity/Vol]21 U/L5 - 41 U/LMercy HealthAnion gap [Moles/Vol]7 mmol/LLow9 - 17 mmol/LMercy HealthAST [Catalytic activity/Vol]18 U/L<40Mercy HealthBilirubin [Mass/Vol]0.55 mg/dL0.3 - 1.2 mg/dLMercy HealthCalcium [Mass/Vol]9.1 mg/dL8.6 - 10.4 mg/dLMercy HealthChloride [Moles/Vol]99 mmol/L98 - 107 mmol/LMercy HealthCO2 [Moles/Vol]27 mmol/L20 - 31 mmol/LMercy Health Creatinine [Mass/Vol]0.7 mg/dL0.70 - 1.20 mg/dLMercy HealthFree PSA/Total PSA [Mass fraction]8.3 g/dL6.4 - 8.3 g/dLMercy HealthGFR/1.73 sq M.predicted MDRD (S/P/Bld) [Vol rate/Area]The [facility] HospitalComment on above:Average GFR for 40-49 years old: 99 mL/min/1.73sq m Chronic Kidney Disease: <60 mL/min/1.73sq m Kidney failure: <15 mL/min/1.73sq m eGFR calculated using average adult body mass. Additional eGFR calculator available at: http://www.G3/multiple_crcl_2011.htm Stage 1: Some kidney damage normal GFR Stage 2: Mild kidney damage GFR 60-89 Stage 3: Moderate kidney damage GFR 30-59 Stage 4: Severe kidney damage GFR 15-29 Stage 5: Severe kidney damage GFR <15 ESRD - chronic treatment by dialysis or transplant Glucose [Mass/Vol]104 mg/mEXhjt10 - 99 mg/dLThe Christ HospitalNatriuretic peptide B (Bld) [Mass/Vol]93 pg/mL<300The Christ HospitalComment on above: An age-independent cutoff point of 300 pg/ml has a 98% negative predictive value excluding acute heart failure. Potassium [Moles/Vol]4.3 mmol/L3.7 - 5.3 mmol/LMercy HealthSodium [Moles/Vol]133 mmol/EGnw042 - 144 mmol/LMercy HealthUrea nitrogen (BldV) [Mass/Vol]17 mg/dL6 - 20 mg/dLThe Christ HospitalUrea nitrogen/Creatinine (Bld) [Mass ratio]24HighThe Christ HospitalKetones Ql (U)NegativeNEGATIVEThe Christ HospitalLaboratory - Hematology and Cell countson 13-15-0049Imqijrdtp (Bld) [#/Vol]0.00 10*3/uLThe Christ HospitalBasophils/100 WBC (Bld)0 %0 - 2 %[facility] HospitalEosinophils/100 WBC (Bld)2 %1 - 4 %[facility] Hematocrit (Bld) [Volume fraction]35.3 %Low40.7 - 50.3 %The [facility] HospitalImmature granulocytes/100 WBC (Bld)0 %0The Christ HospitalLymphocytes/100 WBC (Bld)6 %Low24 - 43 %The [facility] HospitalMCH (RBC) [Entitic mass]27.5 pg25.2 - 33.5 pgMarietta Memorial HospitalHC (RBC) [Mass/Vol]31.4 g/dL28.4 - 34.8 g/dLMarietta Memorial HospitalV (RBC) [Entitic vol]87.6 fL 82.6 - 102.9 fLThe Christ HospitalMonocytes/100 WBC (Bld)1 %Low3 - 12 %[facility] Morphology Adis (Bld) [Interp]ANISOCYTOSIS PRESENTThe Christ HospitalPlatelet distribution width (Bld) [Ratio]16.4 %High11.8 - 14.4 %The Christ HospitalPlatelet mean volume (Bld) [Entitic vol]8.7 fL8.1 - 13.5 fLFirelands Regional Medical Center South Campus HealthPlatelets (Bld) [#/Vol]130 10*3/uLLowFirelands Regional Medical Center [facility] HealthRBC (Bld) [#/Vol]4.03 10*6/uLLow4.21 - 5.77 m/uLThe Christ HospitalSegmented neutrophils/100 WBC (Bld)91 %High36 - 65 %[facility] WBC (Bld) [#/Vol]10.6 10*3/uLThe Christ HospitalLaboratory - Microbiology and Antimicrobial susceptibilityon 71-85-9597KFGC-CoV-2 (COVID-19) RNA CHARO+probe Ql (Unsp spec)Not detectedNot DetectedThe Christ HospitalComment on above: Rapid NAAT: The specimen is [...] management decisions. Fact sheet for Healthcare Providers: https://www.fda.gov/media/570106/download Fact sheet for Patients: https://www.fda.gov/media/877168/download Methodology: Isothermal Nucleic Acid Amplification Laboratory - Urinalysison 76-81-4524Dhsticeby esterase Test strip Ql (U)Negative NEGATIVEThe Christ HospitalLactate, Sepsison 91-82-0739Yvzczm Acid, Sepsis2.6 mmol/L High0.5-1.9Acmc Healthcare System GlenbeighComment on above:Performed By: #### NARESH, CDP #### [facility] [address] [place] [address] [employer] Software Development Engineer: Joelle Parker MDLactic Acid, Sepsis1.7 mmol/LNormal0.5-1.9[facility] Westernport HospitalComment on above:Performed By: #### ALCB #### [address] [place] [address] [employer] Software Development Engineer: Joelle Parker MDLactic Acid, Sepsis1.3 mmol/LNormal0.5-1.9[facility] Westernport HospitalComment on above:Performed By: #### CP, CDP #### [facility] [address] [place] [address] [employer] Software Development Engineer: Joelle Parker MDLactic Acid, Sepsis1.9 mmol/LNormal0.5-1.9[facility] Westernport HospitalComment on above:Performed By: #### CP, CDP #### [address] [place] [address] [employer] Software Development Engineer: Boby Aggarwal Panel Informationon 30-64-5824Qmtyvgakmoemod and review of laboratory resultsAbnormalMercy HealthLactic Acid, Sepsis2.6 mmol/LHigh0.5 - 1.9 mmol/LMercy HealthFirelands Regional Medical Center South Campus HealthNo evidence of pulmonary embolism or acute thoracic aortic abnormality. Improving aeration. Scattered airspace opacities are present throughout the lungs bilaterally to a mild degree, overall improved from prior, possibly representing residual pneumonia. [facility] RIS CONSOLIDATEDEXAMINATION: CTA OF THE CHEST 01/20/2022 6:24 pm [...] Abdomen: The visualized upper abdomen is unremarkable. [facility] Amilcar Blake MD - 01/20/2022 EXAMINATION: CTA OF THE [...] improved from prior, possibly representing residual pneumonia. [email or web address] Phone: radiology Study observation (narrative)[email or web address] Phone: [phone]-Ezroo, Quant2.69[facility] on above: When combined with a low [...] distal DVT. Interpretation and review of laboratory resultsAbnoMarshfield Medical Center/[facility] [place] Poor data quality, interpretation may be adversely affected Sinus tachycardia Otherwise normal ECG When compared with ECG of 10-JAN-2022 20:20, No significant change was found Confirmed by Valery Canela MD ([id number]) on 01/20/2022 6:02:54 [facility] Valery Canela MD - 01/20/2022 Poor data quality, interpretation may be adversely affected Sinus tachycardia Otherwise normal ECG When compared with ECG of 10-JAN-2022 20:20, No significant change was found Confirmed by Valery Canela MD ([id number]) on 01/20/2022 6:02:54 [facility] Work Phone: lactic Acid, Sepsis1.7 mmol/L0.5 - 1.9 mmol/LMercy HealthMercy HealthLactic Acid, Sepsis1.3 mmol/L0.5 - 1.9 mmol/LMercy HealthMercy HealthAbsolute Eos #0.21Mercy HealthAbsolute Immature Granulocyte0.00Mercy HealthAbsolute Lymph #0.64LowMercy HealthAbsolute [place] #0.11[facility] Interpretation and review of laboratory resultsAbnormalMercy HealthNRBC Automated0.00.0 per 100 WBCMercy HealthSegs Absolute9.64HighMercy HealthMercy HealthGFR >60>60 mL/minMercy HealthGFR Non->60 >60 mL/minMercy HealthInterpretation and review of laboratory resultsAbnormal [facility] HealthTroponin, High Sensitivity<60 - 22 ng/LMercy HealthComment on above: High Sensitivity Troponin values cannot be compared with other Troponin methodologies. Patients with high levels of Biotin oral intake (i.e >5mg/day) may have falsely decreased Troponin levels. Samples collected within 8 hours of biotin intake may require additional information for diagnosis. [facility] HealthBacteria, UA1+AbnormalNoneMercy HealthEpithelial Cells UA0 TO 2Mercy HealthInterpretation and review of laboratory resultsAbnormalMercy HealthMucus, UA1+AbnormalNoneMercy HealthRBC, UA50 TO 100Mercy HealthWBC, UA NoneMercy HealthMercy HealthBilirubin UrineNegativeNEGATIVEMercy HealthColor, UA YellowYellowMercy HealthGlucose, UrNegativeNEGATIVEMercy HealthInterpretation and review of laboratory resultsAbnormalMercy HealthNitrite, UrineNegative NEGATIVEMercy HealthpH, UA7.5Mercy HealthProtein, UANegativeNEGATIVEMercy Health Specific Osprey, UA1.025HighMercy HealthTurbidity UAClearClearMercy HealthUrine Hgb3+AbnormalNEGATIVEMercy HealthUrobilinogen, UrineNormalNormalMercy Health Mercy HealthLactic Acid, Sepsis1.9 mmol/L0.5 - 1.9 mmol/LMercy HealthMercy HealthDirect ExamNEGATIVE for Influenza A + B antigens. PCR testing to confirm this result is available upon request. Specimen will be saved in the laboratory for 7 days. Please call [phone] if PCR testing is indicated.[employer] Specimen Description.NASOPHARYNGEAL SWABACMC Healthcare System GlenbeighEstorian The Jewish HospitalSpecimen Description.NASOPHARYNGEAL SWABAurora Health Care Bay Area Medical CenterDiffuse interstitial opacities may represent mild edema or atypical infection. [facility] CONSOLIDATEDEXAMINATION: ONE XRAY VIEW OF THE CHEST 01/20/2022 [...] pneumothorax identified. Osseous structures are grossly unchanged. [facility] Jennifer, Miky, DO - 01/20/2022 EXAMINATION: ONE XRAY VIEW [...] may represent mild edema or atypical infection. [employer] Phone: radiology Study observation (narrative)[email or web address] Phone: No Panel InformationOrdered By: Amilcar Fang on 55-61-8252[facility] Work Phone: no Panel InformationOrdered By: Valery Canela on 70-39-9604Zuemxv Adaa749XLMSrwsl [employer] Phone: p Xgkv19bekwlvaSzzyt Health Work Phone: p-R Lcfdnjco797 msMuniversity hospitals health system [employer] Phone: Q-T Einijfzw284 [employer] Work Phone: [phone] Nbwmyunz76 [employer] Work Phone: QTc Calculation (Bazett)[facility]2[employer] Work Phone: R Tbnq33wxqjaytXfdch Health Work Phone: [phone] Cfjn58xtrzibxOboip [employer] Work Phone: [phone] Nmjp968OGPBneia Health Work Phone: [phone] [employer] Work Phone: No Panel InformationOrdered By: Miky Campbell on 28-31-6835Gmpdg [employer] Phone: [phone]-OxY-2on 29-38-1838OLNZ-CoV-2 (COVID-19) RNA CHARO+probe Ql (Unsp spec)Not detectedNormalNOTDEUniversity Hospitals Health SystemComment on above:Result Comment: Rapid NAAT: The specimen is NEGATIVE [...] management decisions. Fact sheet for Healthcare Providers: https://www.fda.gov/media/644816/download Fact sheet for Patients: https://www.fda.gov/media/101524/download Methodology: Isothermal Nucleic Acid AmplificationPerformed By: #### COVRB #### [facility] [address] [place] [address] [employer] Software Development Engineer: Donald Aggarwal 40-89-0913Tddidgcd, High Sens<6Normal 0-22MerYale New Haven Children's HospitalComment on above:Result Comment: High Sensitivity Troponin values cannot be compared with other Troponin methodologies. Patients with high levels of Biotin oral intake (i.e >5mg/day) may have falsely decreased Troponin levels. Samples collected within 8 hours of biotin intake may require additional information for diagnosis.Performed By: #### CP, CDP #### [facility] [address] [place] [address] [place] [address] [employer] Software Development Engineer: Joelle Parker MDUrinalysis, Routineon 57-97-7024Emduxsyws, SemiQt,UrNegativeNormalNEGMerYale New Haven Children's HospitalComment on above:Performed By: #### CP, CDP #### [facility] [address] [place] [address] [place] [address] [employer] Software Development Engineer: Nita Aggarwal, Urine3+AbnormalNEGAcmc Healthcare System Glenbeigh Comment on above:Performed By: #### CP, CDP #### [facility] [address] [place] [address] [place] [address] [employer] Software Development Engineer: MALA Aggarwallarity (U)ClearNormalCLEARAcmc Healthcare System Glenbeigh Comment on above:Performed By: #### CP, CDP #### [facility] [address] [place] [address] [place] [address] [employer] Software Development Engineer: MALA Aggarwalolor (U)YellowNormalYELMerYale New Haven Children's Hospital Comment on above:Performed By: #### CP, CDP #### [facility] [address] [place] [address] [place] [address] [employer] Software Development Engineer: Joelle Parker MDGlucose Ql (U)NegativeNormalNEGMerYale New Haven Children's HospitalComment on above:Performed By: #### CP, CDP #### [facility] [address] [place] [address] [place] [address] [employer] Software Development Engineer: Joelle Parker MDKetones Ql (U)NegativeNormalNEGMercy Westernport HospitalComment on above:Performed By: #### CP, CDP #### [facility] [address] [place] [address] [place] [place], [place] [address] [employer] Development Engineer: Joelle Parker MDLeukocyte esterase Test strip Ql (U)NegativeNormal NEGAcmc Healthcare System GlenbeighComment on above:Performed By: #### CP, CDP #### [address] [place] [address] [employer] Software Development Engineer: Ashok Aggarwaltrite,UrNegativeNormalNEGAcmc Healthcare System Glenbeigh Comment on above:Performed By: #### CP, CDP #### [address] [place] [address] [employer] Software Development Engineer: LAVERNE Aggarwal,Ur7.4Czixnt2.0-9.0Acmc Healthcare System GlenbeighComment on above:Performed By: #### CP, CDP #### [address] [place] [address] [employer] Software Development Engineer: LAVERNE Aggarwalrotein Ql (U)NegativeNormalNEGAcmc Healthcare System GlenbeighComment on above:Performed By: #### CP, CDP #### [address] [place] [address] [employer]one Software Development Engineer: QUINCY Aggarwalpec. Osprey,Ur1.079Vkae3.010-1.020Acmc Healthcare System GlenbeighComment on above:Performed By: #### CP, CDP #### [facility] [address] [place] [address] [place] [address] [employer] Software Development Engineer: Joelle Parker MDUrobilinogen,UrNormalNormalNORMAcmc Healthcare System GlenbeighComment on above:Performed By: #### CP, CDP #### [address] [place], [place] [address] [employer] Software Development Engineer: Joelle Parker MDUrinalysis,Microon 01-20-2022-----NormalAcmc Healthcare System GlenbeighComment on above:Performed By: #### CP, CDP #### [facility] [address] [place], [place] [address] [employer] Software Development Engineer: Joelle Parker MDBacteria1+AbnormalNONKettering Health Washington TownshipComment on above:Performed By: #### CP, CDP #### [facility] [address] [place] [address] [employer] Software Development Engineer: Joelle Parker MDEpithelial cells LM Ql (Urine sed)0 TO 3Erbzwm6-9 A[facility] Healthcare System GlenbeighComment on above:Performed By: #### CP, CDP #### [facility] [address] [place], [place] [address] [employer] Software Development Engineer: NIKA Aggarwalucus Strands1+[facility] Comment on above:Performed By: #### CP, CDP #### [facility] [address] [place] [address] [employer] Software Development Engineer: Aftab Aggarwal RBC's50 TO 820Jvfmnk3-1NqmhiDayton Children's Hospital Comment on above:Performed By: #### CP, CDP #### [facility] [address] [place] [address] [place] [address] [employer] Software Development Engineer: Aftab Aggarwal WBC'sNoneNormal0-5[facility] Comment on above:Performed By: #### CP, CDP #### [facility] [address] [place] [address] [place] [place], [place] [address] [employer] Software Development Engineer: MT Aggarwal CHEST PORTABLEon 61-93-6332ZD CHEST PORTABLE EXAMINATION: ONE XRAY VIEW OF [...] Signed by: Miky Campbell DO 01/20/22 Final resultNormSelect Medical Specialty Hospital - Columbus SouthAcetaminophenon 67-31-2720Pryvwveyxmnxa [Mass/Vol]ug/zGSsm12-08Fdkeq Tiffin HospitalComment on above:Performed By: #### ALCB #### [facility] [address] [place] [address] [employer] Software Development Engineer: Joelle Parker, MDAcetaminophen Levelon 56-48-8332Nymcxuxtbjslg Level<5Low10 - 30 ug/mLThe Christ HospitalInterpretation and review of laboratory resultsAbnormAurora Health Care Bay Area Medical CenterCBC with Auto Differentialon 01-10-2022 Absolute Eos #0.19The Christ HospitalAbsolute Immature Granulocyte0.09[facility] Absolute Lymph #0.97LowThe Christ HospitalAbsolute [place] #0.66The [facility] HospitalBasophils (Bld) [#/Vol]0.03 10*3/uLThe Christ HospitalBasophils/100 WBC (Bld)0 %0 - 2 %The [facility] HospitalEosinophils/100 WBC (Bld)2 %1 - 4 %The [facility] HospitalHematocrit (Bld) [Volume fraction]28.4 %Low40.7 - 50.3 %The [facility] HospitalHemoglobin.gastrointestinal spec 1 Ql (Stl)8.8 g/dLLow13.0 - 17.0 g/dLThe Christ HospitalImmature granulocytes/100 WBC (Bld)1 %Ojod1VkmxsThe Christ HospitalInterpretation and review of laboratory resultsAbnormAdams County Regional Medical CenterLymphocytes/100 WBC (Bld)11 %Low24 - 43 %[facility] Memorial HospitalH (RBC) [Entitic mass]27.7 pg25.2 - 33.5 pgMarietta Memorial HospitalHC (RBC) [Mass/Vol]31.0 g/dL28.4 - 34.8 g/dLMarietta Memorial HospitalV (RBC) [Entitic vol]89.3 fL82.6 - 102.9 fLThe [facility] Hospital Monocytes/100 WBC (Bld)8 %3 - 12 %The [facility] HospitalNRBC Automated0.00.0 per 100 WBC The [facility] HospitalPlatelet distribution width (Bld) [Ratio]14.3 %11.8 - 14.4 %The [facility] HospitalPlatelet mean volume (Bld) [Entitic vol]9.5 fL8.1 - 13.5 [facility] Platelets (Bld) [#/Vol]305 10*3/[facility] HospitalRBC (Bld) [#/Vol]3.18 10*6/uLLow 4.21 - 5.77 m/[facility] HospitalSegmented neutrophils/100 WBC (Bld)78 %High36 - 65 % The Christ HospitalSegs Absolute6.79The Christ HospitalWBC (Bld) [#/Vol]8.7 10*3/[facility] HealthCBC with Diffon 37-97-0923Zbe. Basophil0.03 k/uLNormal 0.00-0.20[facility] HospitalComment on above:Performed By: #### ALCB #### [facility] [address] [place] [address] [place] [place], [place] [address] [employer] Software Development Engineer: Rhea Aggarwal.Imm.Granulocyte0.09 k/uLNormal0.00-0.30[facility] HospitalComment on above:Performed By: #### ALCB #### [address] [place], [place] [address] [employer] Software Development Engineer: Rhea Aggarwal.Neutrophil (Seg)6.79 k/uLNormal1.50-8.10[facility] HospitalComment on above:Performed By: #### ALCB #### [address] [place] [address] [employer] Software Development Engineer: Joelle Parker MDBasophils/100 WBC (Bld)0 %Normal0-2[facility] Westernport HospitalComment on above:Performed By: #### ALCB #### [address] [place] [address] [employer] Software Development Engineer: Joelle Parker MDEosinophils (Bld) [#/Vol]0.19 10*3/uLNormal 0.00-0.44[facility] HospitalComment on above:Performed By: #### ALCB #### [address] [place] [address] [employer] Software Development Engineer: Joelle Parker MDEosinophils/100 WBC (Bld)2 %Normal1-4[facility] HospitalComment on above:Performed By: #### ALCB #### [address] [place] [address] [employer] Software Development Engineer: Joelle Parker MDErythrocyte distribution width (RBC) [Ratio]14.3 % Yurkec53.8-14.4[facility] HospitalComment on above:Performed By: #### ALCB #### [address] [place] [address] [employer] Software Development Engineer: Joelle Pakrer MDHematocrit (Bld) [Volume fraction]28.4 %Low 40.7-50.3Mer[facility] Westernport HospitalComment on above:Performed By: #### ALCB #### [address] [place] [address] [employer] Software Development Engineer: Joelle Parker MDHemoglobin (Bld) [Mass/Vol]8.8 g/dLLow13.0-17.0 [facility] HospitalComment on above:Performed By: #### ALCB #### [address] [place] [address] [employer] Software Development Engineer: Joelle Parker MDImmature granulocytes/100 WBC (Bld)1 %Qmtl1FfeatMarietta Memorial Hospital HospitalComment on above:Performed By: #### ALCB #### [address] [place] [address] [employer] Software Development Engineer: Joelle Parker MDLymphocytes (Bld) [#/Vol]0.97 10*3/uLLow1.10-3.70 [facility] HospitalComment on above:Performed By: #### ALCB #### [address] [place] [address] [employer] Software Development Engineer: Claudia Aggarwalmphocytes/100 WBC (Bld)11 %Nin89-36OkjjqAcmc Healthcare System GlenbeighComment on above:Performed By: #### ALCB #### [address] [place] [address] [employer] Software Development Engineer: NIKA AggarwalCH (RBC) [Entitic mass]27.7 pgFfnvsq64.2-33.5 [facility] HospitalComment on above:Performed By: #### ALCB #### [address] [place] [address] [employer] Software Development Engineer: EMILY AggarwalC (RBC) [Mass/Vol]31.0 g/fDJhjcvi42.4-34.8Acmc Healthcare System GlenbeighComment on above:Performed By: #### ALCB #### [address] [place], [place] [address] [employer] Software Development Engineer: NIKA AggarwalCV (RBC) [Entitic vol]89.3 pNXyawko33.6-102.9 [facility] HospitalComment on above:Performed By: #### ALCB #### [address] [place] [address] [employer] Software Development Engineer: NIKA Aggarwalonocytes (Bld) [#/Vol]0.66 10*3/uLNormal0.10-1.20 A[facility] System GlenbeighComment on above:Performed By: #### ALCB #### [address] [place], [place] [address] [employer] Software Development Engineer: NIKA Aggarwalonocytes/100 WBC (Bld)8 %Normal3-12Acmc Healthcare System GlenbeighComment on above:Performed By: #### ALCB #### [address] [place] [address] [employer] Software Development Engineer: Debra Aggarwalutrophil (Seg)78 %Jcli69-43Halpm [facility] Comment on above:Performed By: #### ALCB #### [facility] [address] [place] [address] [place] [address] [employer] Software Development Engineer: Joelle Parker MDNRBC Automated0.0 per 100 WBCNormal0.0Acmc Healthcare System GlenbeighComment on above:Performed By: #### ALCB #### [address] [place] [address] [employer] Software Development Engineer: Sushma Aggarwal mean volume (Bld) [Entitic vol]9.5 fL Normal8.1-13.5Acmc Healthcare System GlenbeighComment on above:Performed By: #### ALCB #### [address] [place] [address] [employer] Software Development Engineer: Junior Aggarwal (Bld) [#/Vol]305 10*3/hWVjiszj136-297 [facility] System GlenbeighComment on above:Performed By: #### ALCB #### [address] [place] [address] [employer] Software Development Engineer: DEE AggarwalBC (Bld) [#/Vol]3.18 10*6/uLLow4.21-5.77A[facility] System GlenbeighComment on above:Performed By: #### ALCB #### [address] [place] [address] [employer] Software Development Engineer: STEVE AggarwalBC (Bld) [#/Vol]8.7 10*3/uLNormal3.5-11.3MDayton Children's HospitalComment on above:Performed By: #### ALCB #### [address] [place] [address] [employer] Software Development Engineer: Austen Aggarwal Metabolic Profon 01-10-2022(cont.)NormalAcmc Healthcare System GlenbeighComment on above:Result Comment: Average GFR for 40-49 years old: 99 mL/min/1.73sq m Chronic Kidney Disease: <60 mL/min/1.73sq m Kidney failure: <15 mL/min/1.73sq m eGFR calculated using average adult body mass. Additional eGFR calculator available at: http://www.G3/multiple_crcl_2011.htmPerformed By: #### ALCB #### [address] [place], [place] [address] [employer] Software Development Engineer: Joelle Parker MDAlbumin [Mass/Vol]2.7 g/dLLow3.5-5.2MMcCullough-Hyde Memorial Hospital HospitalComment on above:Performed By: #### ALCB #### [address] [place], [place] [address]83 [employer] Software Development Engineer: Joelle Parker MDAlbumin/Glob Ratio0.5Low1.0-2.5Acmc Healthcare System GlenbeighComment on above:Performed By: #### ALCB #### [address] [place], [place] [address] [employer] Software Development Engineer: Francesca Aggarwalkaline Vlqt471 U/FHyed67-231AdtrpAcmc Healthcare System GlenbeighComment on above:Performed By: #### ALCB #### [address] [place] [address] [employer] Software Development Engineer: Joelle Parker MDALT [Catalytic activity/Vol]21 U/LNormal5-41[facility] HospitalComment on above:Performed By: #### ALCB #### [address] [place] [address] [employer] Software Development Engineer: Joelle Parker MDAnion gap [Moles/Vol]8 mmol/LLow9-17[facility] HospitalComment on above:Performed By: #### ALCB #### [address] [place], [place] [address] [employer] Software Development Engineer: Joelle Parker MDAST [Catalytic activity/Vol]26 U/LNormal<40MerBethesda North Hospital HospitalComment on above:Performed By: #### ALCB #### [address] [place], [place] [address] [employer] Software Development Engineer: Joelle Parker MDBilirubin [Mass/Vol]0.20 mg/dLLow0.3-1.2[facility] Westernport HospitalComment on above:Performed By: #### ALCB #### [address] [place], [place] [address] [employer] Software Development Engineer: Joelle Parker MDBUN/CRE Rjfsn51Bhlmmw2-70Peooa [facility] Comment on above:Performed By: #### ALCB #### [address] [place], [place] [address] [employer] Software Development Engineer: Joelle Parker MDCalcium [Mass/Vol]9.0 mg/dLNormal8.6-10.4MerYale New Haven Children's HospitalComment on above:Performed By: #### ALCB #### [address] [place] [address] [employer] Software Development Engineer: Joelle Parker MDChloride [Moles/Vol]101 mmol/RNhpccq55-727Oemwe Tiffin HospitalComment on above:Performed By: #### ALCB #### [address] [place] [address] [employer] Software Development Engineer: Joelle Parker MDCO2 [Moles/Vol]26 mmol/PKsswhy94-61Hrzhu Tiffin HospitalComment on above:Performed By: #### ALCB #### [address] [place] [address] [employer]one Software Development Engineer: MALA Aggarwalreatinine [Mass/Vol]0.80 mg/dLNormal0.70-1.20 [facility] HospitalComment on above:Performed By: #### ALCB #### [address] [place], [place] [address] [employer]one Software Development Engineer: BIGG Aggarwal, Amer>60Normal>60[facility] Comment on above:Performed By: #### ALCB #### [address] [place], [place] [id number] [employer]one Software Development Engineer: BIGG Aggarwal,non Amer>60Normal>60[facility] HospitalComment on above:Performed By: #### ALCB #### [address] [place] [address] [employer]one Software Development Engineer: Joelle Parker MDGlucose [Mass/Vol]98 mg/eQAzifia11-88Guriz Westernport HospitalComment on above:Performed By: #### ALCB #### [address] [place], [place] [id number] [employer] Software Development Engineer: LAVERNE Aggarwalotassium [Moles/Vol]4.2 mmol/LNormal3.7-5.3[facility] Westernport HospitalComment on above:Performed By: #### ALCB #### [address] [place], [place] [id number] [employer] Software Development Engineer: Joelle Parker MDProtein [Mass/Vol]8.1 g/dLNormal6.4-8.3[facility] HospitalComment on above:Performed By: #### ALCB #### [address] [place] [address] [employer]one Software Development Engineer: Joelle Parker MDSodium [Moles/Vol]135 mmol/NRtkwlp586-856Tefeb Tiffin HospitalComment on above:Performed By: #### ALCB #### [facility] [address] [place] [address] [place] [address] [employer]one Software Development Engineer: QUINCY Aggarwaltaging:NormalMarietta Memorial Hospital HospitalComment on above:Result Comment: Stage 1: Some kidney damage normal GFR Stage 2: Mild kidney damage GFR 60-89 Stage 3: Moderate kidney damage GFR 30-59 Stage 4: Severe kidney damage GFR 15-29 Stage 5: Severe kidney damage GFR <15 ESRD - chronic treatment by dialysis or transplantPerformed By: #### ALCB #### [address] [place] [address] [employer]one Software Development Engineer: Joelle Parker MDUrea nitrogen [Mass/Vol]13 mg/dLNormal6-20A[facility] Healthcare System GlenbeighComment on above:Performed By: #### ALCB #### [facility] [address] [place] [address] [place] [address] [employer]one Software Development Engineer: Joelle Parker [facility] CUSHINGomprehensive Metabolic Panelon 15-15-4538Msxxiyg [Mass/Vol]2.7 g/dLLow3.5 - 5.2 g/dLMercy HealthAlbumin/Globulin [Mass ratio]0.5 {ratio}LowMercy HealthALP (Bld) [Catalytic activity/Vol]138 U/LHigh40 - 129 U/L [facility] HealthALT [Catalytic activity/Vol]21 U/L5 - 41 U/LMercy HealthAnion gap [Moles/Vol]8 mmol/LLow9 - 17 mmol/LMercy HealthAST [Catalytic activity/Vol]26 U/L<40Mercy HealthBilirubin [Mass/Vol]0.20 mg/dLLow0.3 - 1.2 mg/dLMercy Health Calcium [Mass/Vol]9.0 mg/dL8.6 - 10.4 mg/dLMercy HealthChloride [Moles/Vol]101 mmol/L98 - 107 mmol/LMercy HealthCO2 [Moles/Vol]26 mmol/L20 - 31 mmol/LMercy HealthCreatinine [Mass/Vol]0.8 mg/dL0.70 - 1.20 mg/dLThe Christ HospitalFree PSA/Total PSA [Mass fraction]8.1 g/dL6.4 - 8.3 g/dLFirelands Regional Medical [facility] HealthGFR >60>60 mL/minFirelands Regional Medical Center South Campus HealthGFR Non->60>60 mL/minThe Christ HospitalGlucose [Mass/Vol]98 mg/dL70 - 99 mg/dLThe Christ HospitalPotassium [Moles/Vol]4.2 mmol/L3.7 - 5.3 mmol/LMercy HealthSodium [Moles/Vol]135 mmol/L135 - 144 mmol/LMercy Health Urea nitrogen (BldV) [Mass/Vol]13 mg/dL6 - 20 mg/dLThe Christ HospitalUrea nitrogen/Creatinine (Bld) [Mass ratio]16The Christ HospitalEthanolon 37-57-9255Hzeeqbv [Mass/Vol]mg/dL<10 mg/dLThe Christ HospitalEthanol percent<0.010<0.010 %[facility] Memorial HospitalEthanol Alcoholon 42-22-5642Bevwmkp [Mass/Vol]mg/dLNormal<10Acmc Healthcare System GlenbeighComment on above:Performed By: #### ALCB #### [address] [place] [address] [employer]one Software Development Engineer: Joelle Parker MDEthanol percent<0.010Normal<0.010Acmc Healthcare System GlenbeighComment on above:Performed By: #### ALCB #### [address] [place] [address] [employer]one Software Development Engineer: Joelle Parker MDLaboratory - Chemistry and Chemistry - challengeon [id number]/1.73 sq M.predicted MDRD (S/P/Bld) [Vol rate/Area][facility] Comment on above:Average GFR for 40-49 years old: 99 mL/min/1.73sq m Chronic Kidney Disease: <60 mL/min/1.73sq m Kidney failure: <15 mL/min/1.73sq m eGFR calculated using average adult body mass. Additional eGFR calculator available at: http://www.Coinsetter.[employer]/multiple_crcl_2012.htm Stage 1: Some kidney damage normal GFR Stage 2: Mild kidney damage GFR 60-89 Stage 3: Moderate kidney damage GFR 30-59 Stage 4: Severe kidney damage GFR 15-29 Stage 5: Severe kidney damage GFR <15 ESRD - chronic treatment by dialysis or transplant No Panel Informationon [id number] and review of laboratory results AbnormalMercy HealthFirelands Regional [facility] HealthSalicylateon 62-89-6280Rhbyrgulzj<4Zjo4-08HedjnAcmc Healthcare System GlenbeighComment on above:Performed By: #### BC #### [facility] [address] [place] [address] [employer]one Software Development Engineer: QUINCY Aggarwalalicylate Lvl<1Low3 - 10 mg/dLMerOdessa Memorial Healthcare CenterXR FOOT LEFT (MIN 3 VIEWS)on 67-28-7939LI FOOT LEFT (MIN 3 VIEWS)EXAMINATION: THREE XRAY VIEWS OF THE LEFT FOOT [...] Interpreted by: Roscoe Ferrer Signed by: Roscoe eFrrer 01/10/22 Final resultNormalMerNew Milford Hospitaloft tissue defect over the posterior aspect of the ankle with surrounding soft tissue swelling and likely an effusion in Kager's fat pad. No underlying osseous findings to suggest osteomyelitis. Cannot exclude soft tissue infection [facility] RIS CONSOLIDATEDEXAMINATION: THREE XRAY VIEWS OF THE LEFT FOOT [...] No underlying bony changes to suggest osteomyelitis. [facility] Roscoe Beckman P - 01/10/2022 EXAMINATION: THREE XRAY VIEWS [...] suggest osteomyelitis. Cannot exclude soft tissue infection [email or web address] Phone: radiology Study observation (narrative)[email or web address] Phone: XR FOOT LEFT (MIN 3 VIEWS)Ordered By: Roscoe Ferrer on [id number].co Phone: Basic Metabolic Panel w/ Reflex to MGon 12-20-2021 Anion gap [Moles/Vol]8 mmol/LLow9 - 17 mmol/LMercy HealthCalcium [Mass/Vol]7.7 mg/dLLow8.6 - 10.4 mg/dLAvita Health System Ontario HospitalEstorian HealthChloride [Moles/Vol]99 mmol/L98 - 107 mmol/L Oxane MaterialsCO2 [Moles/Vol]23 mmol/L20 - 31 mmol/LMercy HealthCreatinine [Mass/Vol]0.82 mg/dL0.70 - 1.20 mg/dLMercy HealthGFR >60>60 mL/minMercy HealthGFR Non->60>60 mL/minMercy HealthGFR/1.73 sq M.predicted MDRD (S/P/Bld) [Vol rate/Area]The Christ HospitalComment on above:Average GFR for 30-39 years old: 107 mL/min/1.73sq m Chronic Kidney Disease: <60 mL/min/1.73sq m Kidney failure: <15 mL/min/1.73sq m eGFR calculated using average adult body mass. Additional eGFR calculator available at: http://www.G3/multiple_crcl_2012.htm GFR/1.73 sq M.predicted MDRD (S/P/Bld) [Vol rate/Area]NOT REPORTEDThe Christ Hospital Glucose [Mass/Vol]110 mg/iZIlbk96 - 99 mg/dLThe Christ HospitalInterpretation and review of laboratory resultsAbnormalThe Christ HospitalPotassium [Moles/Vol]4.6 mmol/L 3.7 - 5.3 mmol/LMercy HealthSodium [Moles/Vol]130 mmol/NWsi169 - 144 mmol/LMercy HealthUrea nitrogen (BldV) [Mass/Vol]15 mg/dL6 - 20 mg/dLThe Christ HospitalUrea nitrogen/Creatinine (Bld) [Mass ratio]NOT REPORTEDThe Christ HospitalIR ARTHR/ASP/INJ MAJOR JT/BURSA RIGHT WO USon 27-31-1366Lndazokdev fluoroscopic-guided right shoulder aspiration. [facility] RIS CONSOLIDATEDEXAMINATION: Fluoroscopic guided right shoulder aspiration 12/20/2021 2:06 [...] minutes DAP 2 cGy cm 2 PROCEDURE: LAUNCH LEADER: Everett Anderson This procedure was performed by Everett Anderson PA-C under indirect supervision of Dr. Dyson. Informed consent was obtained after a detailed explanation of the procedure including risks, benefits, and alternatives. [place] protocol was observed using maximum sterile barrier [...] and left the Department in stable condition. [facility] Darryl Steiner MD - 12/20/2021 EXAMINATION: Fluoroscopic guided right [...] minutes DAP 2 cGy cm 2 PROCEDURE: LAUNCH LEADER: Everett Anderson This procedure was performed by Everett Anderson PA-C under indirect supervision of Dr. Dyson. Informed consent was obtained after a detailed explanation of the procedure including risks, benefits, and alternatives. [place] protocol was observed using maximum sterile barrier [...] condition. IMPRESSION: Successful fluoroscopic-guided right shoulder aspiration. [email or web address] Phone: radiology Study observation (narrative)[email or web address] Phone: IR ARTHR/ASP/INJ MAJOR JT/BURSA RIGHT WO USOrdered By: Darryl Dyson on 14-48-1259Kcpqn Health Work Phone: No Panel Informationon [id number] Health VANCOMYCIN, RANDOMon [id number] Random Date last doseNOT REPORTEDMer HealthVancomycin Random Dose amountNOT REPORTEDMercy HealthVancomycin Random Time last doseNOT REPORTEDMercy HealthVancomycin Rm32.8 ug/mLThe Christ HospitalComment on above:Higher trough serum vancomycin concentrations of 15-20 ug/mL are recommended for complicated infections such as bacteremia, endocarditis, osteomyelitis, meningitis, and hospital acquired pneumonia. Basic Metabolic Panel w/ Reflex to MGon [id number] gap [Moles/Vol]9 mmol/L9 - 17 mmol/LMercy HealthCalcium [Mass/Vol]8.4 mg/dLLow8.6 - 10.4 mg/dLMercy HealthChloride [Moles/Vol]101 mmol/L98 - 107 mmol/LMercy HealthCO2 [Moles/Vol]22 mmol/L20 - 31 mmol/LMercy HealthCreatinine [Mass/Vol]0.72 mg/dL0.70 - 1.20 mg/dLMercy HealthGFR >60>60 mL/minMercy HealthGFR Non->60>60 mL/minMercy HealthGFR/1.73 sq M.predicted MDRD (S/P/Bld) [Vol rate/Area]The Christ HospitalComment on above:Average GFR for 30-39 years old: 107 mL/min/1.73sq m Chronic Kidney Disease: <60 mL/min/1.73sq m Kidney failure: <15 mL/min/1.73sq m eGFR calculated using average adult body mass. Additional eGFR calculator available at: http://www.[employer]ter.[employer]/multiple_crcl_2012.htm GFR/1.73 sq M.predicted MDRD (S/P/Bld) [Vol rate/Area]NOT REPORTEDThe Christ Hospital Glucose [Mass/Vol]106 mg/mDNwgn70 - 99 mg/dLThe Christ HospitalPotassium [Moles/Vol]5.4 mmol/LHigh3.7 - 5.3 mmol/LMercy HealthSodium [Moles/Vol]132 mmol/UDjb601 - 144 mmol/LMercy HealthUrea nitrogen (BldV) [Mass/Vol]11 mg/dL6 - 20 mg/dLMercy HealthUrea nitrogen/Creatinine (Bld) [Mass ratio]NOT REPORTEDThe Christ HospitalC- Reactive Proteinon [id number] [Mass/Vol]45.9 mg/LHigh0.0 - 5.0 mg/LMlutheran hospitaly HealthNo Panel Informationon [id number] and review of laboratory resultsAbnormalMorrow County Hospital HealthPOTASSIUMon 95-28-9676Cwqafuqgg [Moles/Vol]4.3 mmol/L3.7 - 5.3 mmol/LMlutheran hospitaly [facility] Orthopedic CenterTSH with Reflexon [id number] Qn2.73 m[IU]/LMOhio Valley Surgical Hospital HealthXR CHEST PORTABLEon [id number] infiltrates with right-sided PICC line. [facility] CONSOLIDATEDEXAMINATION: ONE XRAY VIEW OF THE CHEST 12/19/2021 [...] with the tip in the mid SVC. [facility] Conrad Ackerman MD - 12/19/2021 EXAMINATION: ONE XRAY VIEW [...] IMPRESSION: Scattered infiltrates with right-sided PICC line. [email or web address] Phone: radiology Study observation (narrative)[email or web address] Phone: xr CHEST PORTABLEOrdered By: Conrad Aquino on 25-85-3722Zksrl Health Work Phone: basic Metabolic Panel w/ Reflex to MGon 12-18-2021 Anion gap [Moles/Vol]8 mmol/LLow9 - 17 mmol/LMercy HealthCalcium [Mass/Vol]7.7 mg/dLLow8.6 - 10.4 mg/dLMercy HealthChloride [Moles/Vol]100 mmol/L98 - 107 mmol/LMercy HealthCO2 [Moles/Vol]20 mmol/L20 - 31 mmol/LMercy HealthCreatinine [Mass/Vol]0.38 mg/dLLow0.70 - 1.20 mg/dLMercy HealthGFR >60>60 mL/minMercy HealthGFR Non->60>60 mL/minMercy HealthGFR/1.73 sq M.predicted MDRD (S/P/Bld) [Vol rate/Area]The Christ HospitalComment on above:Average GFR for 30-39 years old: 107 mL/min/1.73sq m Chronic Kidney Disease: <60 mL/min/1.73sq m Kidney failure: <15 mL/min/1.73sq m eGFR calculated using average adult body mass. Additional eGFR calculator available at: http://www.G3/multiple_crcl_2012.htm GFR/1.73 sq M.predicted MDRD (S/P/Bld) [Vol rate/Area]NOT REPORTEDThe Christ Hospital Glucose [Mass/Vol]121 mg/jESfzo26 - 99 mg/dLFirelands Regional Medical [facility] HealthPotassium [Moles/Vol]4.1 mmol/L3.7 - 5.3 mmol/LMercy HealthSodium [Moles/Vol]128 mmol/NWcg238 - 144 mmol/LMercy HealthUrea nitrogen (BldV) [Mass/Vol]10 mg/dL6 - 20 mg/dLMer HealthUrea nitrogen/Creatinine (Bld) [Mass ratio]NOT REPORTEDThe Christ HospitalBody Fluid Cell Count with Differentialon [id number], FluidNOT REPORTED Mercy HealthBasos, FluidNOT REPORTED0 %[facility]cy HealthColor, FluidNOT REPORTEDMercy HealthEos, FluidNOT REPORTED0 %Mercy HealthFluid Diff CommentNOT REPORTEDMercy HealthLymphocytes, Body Fluid33 %Mercy HealthComment on above:The reference range and other method performance specifications have not been established for this body fluid. The test result must be integrated into the clinical context for interpretation. Monocyte Count, FluidNOT REPORTED%[facility]cy HealthNeutrophil Count, Fluid47 %Mercy HealthComment on above:The reference range and other method performance specifications have not been established for this body fluid. The test result must be integrated into the clinical context for interpretation. Other Cells, FluidMONOCYTES%Mercy HealthComment on above:The reference range and other method performance specifications have not been established for this body fluid. The test result must be integrated into the clinical context for interpretation. RBC, Pkole1632 /rk0Ktroy HealthComment on above:The reference range and other method performance specifications have not been established for this body fluid. The test result must be integrated into the clinical context for interpretation. Specimen type Nom (Spec).SYNOVIAL FLUIDMercy HealthComment on above:LEFT ANKLE WBC, Hwfks5623 /ac6Czrpf HealthComment on above:The reference range and other method performance specifications have not been established for this body fluid. The test result must be integrated into the clinical context for interpretation. Mercy HealthAppearance, FluidNOT REPORTEDMercy HealthBasos, FluidNOT REPORTED0 % [facility] HealthColor, FluidNOT REPORTEDMercy HealthEos, FluidNOT REPORTED0 %Mercy HealthFluid Diff CommentNOT REPORTEDMercy HealthLymphocytes, Body Fluid9 %Mercy HealthComment on above:The reference range and other method performance specifications have not been established for this body fluid. The test result must be integrated into the clinical context for interpretation. Monocyte Count, FluidNOT REPORTED%Mercy HealthNeutrophil Count, Fluid89 %Mercy HealthComment on above:The reference range and other method performance specifications have not been established for this body fluid. The test result must be integrated into the clinical context for interpretation. Other Cells, FluidMONOCYTES%Mercy HealthComment on above:The reference range and other method performance specifications have not been established for this body fluid. The test result must be integrated into the clinical context for interpretation. RBC, [id number] /qh8Qkpkl HealthComment on above:The reference range and other method performance specifications have not been established for this body fluid. The test result must be integrated into the clinical context for interpretation. Specimen type Nom (Spec)LEFTFirelands Regional Medical Center South Campus HealthComment on above:.WRISTWBC, Lauqp54694 /la1Ymngy HealthComment on above:The reference range and other method performance specifications have not been established for this body fluid. The test result must be integrated into the clinical context for interpretation. The Christ HospitalBody Fluid Crystalon [id number], FluidNegativeNEGATIVEMercy HealthComment on above:NO CRYSTALS SEENSpecimen type Nom (Spec).SYNOVIAL FLUID The Christ HospitalComment on above:LEFT ANKLEMercy HealthCrystals, FluidNegative NEGATIVEMer HealthComment on above:NO CRYSTALS SEENSpecimen type Nom (Spec) .SYNOVIAL FLUIDFirelands Regional Medical Center South Campus HealthMer HealthCrystals, FluidNegativeNEGATIVEMercy HealthComment on above:NO CRYSTALS SEENSpecimen type Nom (Spec).SYNOVIAL FLUID [facility] HealthCulture, Blood 1on [id number] identified Cx Nom (Unsp spec)PositiveAbnormAdams County Regional Medical CenterBacteria identified Cx Nom (Unsp spec) DIRECT GRAM STAIN FROM BOTTLE: GRAM POSITIVE COCCI IN [facility] Bacteria identified Cx Nom (Unsp spec)METHICILLIN RESISTANT STAPHYLOCOCCUS AUREUSAbnormAdams County Regional Medical CenterBacteria identified Cx Nom (Unsp spec)(NOTE) Direct Gram Stain from bottle result called to and read back by: ANSELMO Hernández on 12/17/21 at 01:35The Christ HospitalInterpretation and review of laboratory resultsAbnoMercy HealthSpecial Qkdmbmsd58SN R Parkview HealthSpecimen Description.BLOODMorrow County Hospital HealthNo Panel Informationon [id number] and review of laboratory resultsAbnoMarshfield Medical Center/Hospital Eau ClaireVANCOMYCIN, TROUGHon [id number] Tr8.6 ug/mLLow10.0 - 20.0 ug/mLThe Christ HospitalComselect specialty hospital-flint on above:Higher trough serum vancomycin concentrations of 15-20 ug/mL are recommended for complicated infections such as bacteremia, endocarditis, osteomyelitis, meningitis, and hospital acquired pneumonia. Vancomycin Trough Date last doseNOT REPORTEDFirelands Regional Medical Center South Campus HealthVancomycin Trough Dose amountNOT REPORTEDFirelands Regional Medical Center South Campus HealthVancomycin Trough Time last doseNOT [facility] Memorialsic Metabolic Panel w/ Reflex to MGon [id number] gap [Moles/Vol]5 mmol/LLow9 - 17 mmol/LMercy HealthCalcium [Mass/Vol]7.9 mg/dLLow8.6 - 10.4 mg/dL Mercy HealthChloride [Moles/Vol]102 mmol/L98 - 107 mmol/LMercy HealthCO2 [Moles/Vol]24 mmol/L20 - 31 mmol/LMercy HealthCreatinine [Mass/Vol]0.52 mg/dLLow 0.70 - 1.20 mg/dLMercy HealthGFR >60>60 mL/minMercy HealthGFR Non->60>60 mL/minMercy HealthGFR/1.73 sq M.predicted MDRD (S/P/Bld) [Vol rate/Area][facility] HospitalComment on above:Average GFR for 30-39 years old: 107 mL/min/1.73sq m Chronic Kidney Disease: <60 mL/min/1.73sq m Kidney failure: <15 mL/min/1.73sq m eGFR calculated using average adult body mass. Additional eGFR calculator available at: http://www.G3/multiple_crcl_2012.htm GFR/1.73 sq M.predicted MDRD (S/P/Bld) [Vol rate/Area]NOT REPORTEDThe [facility] Hospital Glucose [Mass/Vol]97 mg/dL70 - 99 mg/dLThe Christ HospitalPotassium [Moles/Vol]4.7 mmol/L3.7 - 5.3 mmol/LMercy HealthSodium [Moles/Vol]131 mmol/BWkf496 - 144 mmol/LMercy HealthUrea nitrogen (BldV) [Mass/Vol]9 mg/dL6 - 20 mg/dLThe [facility] Hospital Urea nitrogen/Creatinine (Bld) [Mass ratio]NOT REPORTEDThe Christ HospitalC-Reactive Proteinon [id number] [Mass/Vol]56.1 mg/LHigh0.0 - 5.0 mg/LMercy HealthCBC Auto Differentialon [id number] Eos #0.12Mercy HealthAbsolute Immature Granulocyte0.06Mercy HealthAbsolute Lymph #1.25Mercy HealthAbsolute [place] #0.68 Mercy HealthBasophils (Bld) [#/Vol]0.06 10*3/uLMer HealthBasophils/100 WBC (Bld)1 %0 - 2 %The [facility] HospitalDifferential TypeNOT REPORTEDFirelands Regional Medical Center South Campus Health Eosinophils/100 WBC (Bld)2 %1 - 4 %The Christ HospitalHematocrit (Bld) [Volume fraction]28.4 %Low40.7 - 50.3 %The Christ HospitalHemoglobin.gastrointestinal spec 1 Ql (Stl)9.4 g/dLLow13.0 - 17.0 g/dLThe Christ HospitalImmature granulocytes/100 WBC (Bld)1 %Ynaa9ExcxcThe Christ HospitalInterpretation and review of laboratory resultsAbnormalThe Christ HospitalLymphocytes/100 WBC (Bld)20 %Low24 - 43 %[facility] HospitalH (RBC) [Entitic mass]28.0 pg25.2 - 33.5 pgMarietta Memorial HospitalHC (RBC) [Mass/Vol]33.1 g/dL28.4 - 34.8 g/dLMarietta Memorial HospitalV (RBC) [Entitic vol]84.5 fL82.6 - 102.9 fLThe Christ Hospital Monocytes/100 WBC (Bld)11 %3 - 12 %The [facility] HospitalNRBC Automated0.00.0 per 100 WBC [facility] HealthPlatelet distribution width (Bld) [Ratio]14.9 %High11.8 - 14.4 % [facility] HealthPlatelet EstimateNOT REPORTEDFirelands Regional Medical Center [facility] HealthPlatelet mean volume (Bld) [Entitic vol]9.9 fL8.1 - 13.5 fLFirelands Regional Medical Center South Campus HealthPlatelets (Bld) [#/Vol]188 10*3/uL [facility] HealthRBC (Bld) [#/Vol]3.36 10*6/uLLow4.21 - 5.77 m/uLFirelands Regional Medical Center [facility] HealthRBC (Bld) [#/Vol]ANISOCYTOSIS PRESENTThe Christ HospitalSegmented neutrophils/100 WBC (Bld) 65 %36 - 65 %The Christ HospitalSegs Absolute4.04Mer HealthWBC (Bld) [#/Vol]6.2 10*3/uLFirelands Regional Medical Center [facility] HealthWBC (Bld) [#/Vol]NOT REPORTEDMorrow County Hospital HealthNo Panel Informationon 01-19-7931Ohchojyjuaofws and review of laboratory resultsAbnormal [facility] Medical CenterBasic Metabolic Panel w/ Reflex to MGon 47-74-5121Drxiy gap [Moles/Vol]8 mmol/LLow9 - 17 mmol/LMercy HealthCalcium [Mass/Vol]7.6 mg/dL Low8.6 - 10.4 mg/dLFirelands Regional Medical Center [facility] Campus HealthChloride [Moles/Vol]97 mmol/LLow98 - 107 mmol/L [facility] HealthCO2 [Moles/Vol]23 mmol/L20 - 31 mmol/LMercy HealthCreatinine [Mass/Vol]0.53 mg/dLLow0.70 - 1.20 mg/dLFirelands Regional Medical [facility] HealthGFR >60>60 mL/minFirelands Regional Medical Center South Campus HealthGFR Non->60>60 mL/minFirelands Regional Medical Center South Campus HealthGFR/1.73 sq M.predicted MDRD (S/P/Bld) [Vol rate/Area][facility] HospitalComment on above:Average GFR for 30-39 years old: 107 mL/min/1.73sq m Chronic Kidney Disease: <60 mL/min/1.73sq m Kidney failure: <15 mL/min/1.73sq m eGFR calculated using average adult body mass. Additional eGFR calculator available at: http://www.G3/multiple_crcl_2012.htm GFR/1.73 sq M.predicted MDRD (S/P/Bld) [Vol rate/Area]NOT REPORTEDThe [facility] Hospital Glucose [Mass/Vol]117 mg/gDLhsg88 - 99 mg/dLThe Christ HospitalInterpretation and review of laboratory resultsAbnormalFirelands Regional Medical Center [facility] Campus HealthPotassium [Moles/Vol]4.1 mmol/L 3.7 - 5.3 mmol/LMercy HealthSodium [Moles/Vol]128 mmol/EWea968 - 144 mmol/LMercy HealthUrea nitrogen (BldV) [Mass/Vol]10 mg/dL6 - 20 mg/dLThe Christ HospitalUrea nitrogen/Creatinine (Bld) [Mass ratio]NOT REPORTEDMorrow County Hospital HealthBody Fluid Cell Count with Differentialon [id number], FluidNOT REPORTED The Christ HospitalBasopatrick FluidNOT REPORTED0 %[facility] HealthColor, FluidNOT REPORTEDMercy HealthEos, FluidNOT REPORTED0 %Mercy HealthFluid Diff CommentNOT REPORTEDFirelands Regional Medical Center South Campus HealthLymphocytes, Body Fluid9 %Mercy HealthComment on above:The reference range and other method performance specifications have not been established for this body fluid. The test result must be integrated into the clinical context for interpretation. Monocyte Count, FluidNOT REPORTED%[facility]cy HealthNeutrophil Count, Fluid91 %Mercy HealthComment on above:The reference range and other method performance specifications have not been established for this body fluid. The test result must be integrated into the clinical context for interpretation. Other Cells, FluidNOT REPORTED%Mercy HealthRBC, Fluid<3000/qa2Rxfsn Health Comment on above:The reference range and other method performance specifications have not been established for this body fluid. The test result must be integrated into the clinical context for interpretation. Specimen type Nom (Spec)RIGHTFirelands Regional Medical Center South Campus HealthComment on above:.KNEEWBC, [id number] /fc1Xltcx HealthComment on above:The reference range and other method performance specifications have not been established for this body fluid. The test result must be integrated into the clinical context for interpretation. [facility] WITH AUTO DIFFERENTIALon [id number] Eos #0.11[facility] HealthAbsolute Immature Granulocyte<0.03[facility] HealthAbsolute Lymph #1.12[facility] HealthAbsolute [place] #0.75Mercy HealthBasophils (Bld) [#/Vol]0.04 10*3/uLMercy HealthBasophils/100 WBC (Bld)1 %0 - 2 %[facility]cy HealthDifferential TypeNOT REPORTED Mercy HealthEosinophils/100 WBC (Bld)2 %1 - 4 %Mercy HealthHematocrit (Bld) [Volume fraction]29.2 %Low40.7 - 50.3 %[facility]cy HealthHemoglobin.gastrointestinal spec 1 Ql (Stl)9.7 g/dLLow13.0 - 17.0 g/dLMercy HealthImmature granulocytes/100 WBC (Bld)0 %0Mercy HealthInterpretation and review of laboratory resultsAbnormal Mercy HealthLymphocytes/100 WBC (Bld)15 %Low24 - 43 %Mercy HealthMCH (RBC) [Entitic mass]27.8 pg25.2 - 33.5 pgMarietta Memorial HospitalHC (RBC) [Mass/Vol]33.2 g/dL 28.4 - 34.8 g/dLMarietta Memorial HospitalV (RBC) [Entitic vol]83.7 fL82.6 - 102.9 fLThe Christ HospitalMonocytes/100 WBC (Bld)10 %3 - 12 %The Christ HospitalNRBC Automated0.00.0 per 100 WBCThe Christ HospitalPlatelet distribution width (Bld) [Ratio]15.0 %High11.8 - 14.4 %The [facility] HospitalPlatelet EstimateNOT REPORTEDFire[facility] HealthPlatelet mean volume (Bld) [Entitic vol]10.0 fL8.1 - 13.5 fLFirelands Regional Medical [facility] HealthPlatelets (Bld) [#/Vol]163 10*3/uLFirelands Regional Medical [facility] Campus HealthRBC (Bld) [#/Vol]3.49 10*6/uLLow4.21 - 5.77 m/uLThe Christ Hospital RBC (Bld) [#/Vol]ANISOCYTOSIS PRESENTThe Christ HospitalSegmented neutrophils/100 WBC (Bld)72 %High36 - 65 %The [facility] HospitalSegs Absolute5.34The Christ HospitalWBC (Bld) [#/Vol] 7.4 10*3/uLThe Christ HospitalWBC (Bld) [#/Vol]NOT REPORTEDAurora Health Care [facility] Culture, Blood 1on 88-12-6103Gsapdpyn identified Cx Nom (Unsp spec)Positive AbnormalThe Christ HospitalBacteria identified Cx Nom (Unsp spec)DIRECT GRAM STAIN FROM BOTTLE: GRAM POSITIVE COCCI IN CLUSTERSThe Christ HospitalBacteria identified Cx Nom (Unsp spec)METHICILLIN RESISTANT STAPHYLOCOCCUS AUREUS For susceptibility, refer to previous culture.AbnormalThe Christ HospitalBacteria identified Cx Nom (Unsp spec) (NOTE) Direct Gram Stain from bottle result called to and read back by: ANSELMO Dewitt on 12/14/21 at 17:45The Christ HospitalInterpretation and review of laboratory resultsAbnormalThe Christ HospitalSpecial RequestsL FA 7CCMercy HealthSpecimen Description.[facility]icsNo Panel Informationon 12-16-2021 Radiology Study observation (narrative)[facility] [employer] Work Phone: sedimentation Rateon 27-55-1961Zqbfglwptrjzam and review of laboratory resultsAbnoMercy HealthSed Rate32 mmHigh0 - 15 mmMerFairfield Medical CenterVL DUP LOWER EXTREMITY VENOUS LEFTon [id number] curtis MD - 12/16/2021 [facility] Vascular Lower Extremities DVT Study Procedure Patient Name COTY Date of Study 12/16/2021 TIP Plata Date of 1980 Gender Male Age 41 year(s) Race Room Number 0316 Height: 73 inch, 185.42 cm Corporate ID [id number] Weight: 170 pounds, 77.1 kg # Patient Acct [id number] BSA: 2.01 m^2 BMI: 22.43 kg/m^2 # MR # [id number] [employer] Vivienne Roach RVT Interpreting Physician Gordo Juárez [...] !Yes !None ! + (more content not included)...[email or web address] Phone: [facility] [employer] Phone: radiology Study observation (narrative)[facility] BeachwoodAudioms Phone: VL DUP UPPER EXTREMITY VENOUS LEFTon [id number] curtis MD - 12/16/2021 [facility] Vascular Upper Extremities Veins Procedure Patient Name COTY Date of Study 12/16/2021 TIP Plata Date of 1980 Gender Male Age 41 year(s) Race Room Number 0316 Height: 73 inch, 185.42 cm Corporate ID [id number] Weight: 170 pounds, 77.1 kg # Patient Acct [id number] BSA: 2.01 m^2 BMI: 22.43 kg/m^2 # MR # [id number] Sponge [employer]er Vivienne Roach RVT Interpreting Physician Gordo Juárez [...] !Prox Radial !Yes !Yes !None ! + + + + + !Dist Radial !Yes !Yes !None ! + + + + + !Prox Ulnar !Yes !Yes !None ! + + + + + !Dist Ulnar !Yes !Yes !None ! + + + + + !Basilic at UA !Yes !Yes !None ! + + + + + !Basilic at AF !Yes !Yes !None ! + + + + + !Basilic at LA !Yes !Yes !None ! + (more content not included)...[email or web address] Phone: radiology Study observation (narrative)[email or web address] Phone: VL DUP UPPER EXTREMITY VENOUS LEFTOrdered By: Gordo Juárez on [id number] Work Phone: xr KNEE RIGHT (3 VIEWS)on 62-65-7153Mb acute abnormality of the knee. [facility] CONSOLIDATEDEXAMINATION: THREE XRAY VIEWS OF THE RIGHT KNEE 12/16/2021 2:02 pm COMPARISON: None. HISTORY: ORDERING SYSTEM PROVIDED HISTORY: Trauma/Fracture TECHNOLOGIST PROVIDED HISTORY: Trauma/Fracture FINDINGS: No evidence of acute fracture or dislocation. No focal osseous lesion. No evidence of joint effusion. No focal soft tissue abnormality. [facility] Addy Galeas MD - 12/16/2021 EXAMINATION: THREE XRAY VIEWS OF THE RIGHT KNEE 12/16/2021 2:02 pm COMPARISON: None. HISTORY: ORDERING SYSTEM PROVIDED HISTORY: Trauma/Fracture TECHNOLOGIST PROVIDED HISTORY: Trauma/Fracture FINDINGS: No evidence of acute fracture or dislocation. No focal osseous lesion. No evidence of joint effusion. No focal soft tissue abnormality. IMPRESSION: No acute abnormality of the knee. [email or web address] Phone: XR KNEE RIGHT (3 VIEWS)Ordered By: Addy Gates on [id number] Work Phone: XR SHOULDER RIGHT (MIN 2 VIEWS)on 66-61-4661Yl acute osseous abnormality. [facility] CONSOLIDATEDEXAMINATION: THREE XRAY VIEWS OF THE RIGHT SHOULDER 12/16/2021 2:02 pm COMPARISON: None. HISTORY: ORDERING SYSTEM PROVIDED HISTORY: Trauma/Fracture TECHNOLOGIST PROVIDED HISTORY: Trauma/Fracture FINDINGS: Glenohumeral joint is normally aligned. No evidence of acute fracture or dislocation. No abnormal periarticular calcifications. The AC joint is unremarkable in appearance. Right PICC with tip in the superior vena cava. [facility] Addy Young MD - 12/16/2021 EXAMINATION: THREE XRAY VIEWS [...] vena cava. IMPRESSION: No acute osseous abnormality. [employer] Work Phone: [employer] Work Phone: [phone]-CFOONTJK PROTEINon 10-65-4632EDP [Mass/Vol]62.9 mg/L High0.0 - 5.0 mg/LMercy HealthCBC WITH AUTO DIFFERENTIALon 20-65-1251Yqubfkjn Eos #0.25[facility] HealthAbsolute Immature Granulocyte0.08Mercy HealthAbsolute Lymph #1.25Mer[facility] HealthAbsolute [place] #0.83Mercy HealthBasophils (Bld) [#/Vol]0.08 10*3/uLThe Christ HospitalBasophils/100 WBC (Bld)1 %0 - 2 %The [facility] HospitalDifferential TypeNOT REPORTEDThe Christ HospitalEosinophils/100 WBC (Bld)3 %1 - 4 %[facility] Hematocrit (Bld) [Volume fraction]29.7 %Low40.7 - 50.3 %[facility] Hemoglobin.gastrointestinal spec 1 Ql (Stl)9.8 g/dLLow13.0 - 17.0 g/dLThe Christ HospitalImmature granulocytes/100 WBC (Bld)1 %Cjoh6YocskThe Christ HospitalInterpretation and review of laboratory resultsAbnormalThe Christ HospitalLymphocytes/100 WBC (Bld)15 %Low 24 - 43 %The Christ HospitalMCH (RBC) [Entitic mass]27.8 pg25.2 - 33.5 pgThe Christ Hospital MCHC (RBC) [Mass/Vol]33.0 g/dL28.4 - 34.8 g/dLThe Christ HospitalMCV (RBC) [Entitic vol]84.4 fL82.6 - 102.9 fLThe Christ HospitalMonocytes/100 WBC (Bld)10 %3 - 12 %The Christ HospitalMorphology Adis (Bld) [Interp]ANISOCYTOSIS PRESENTThe Christ HospitalNRBC Automated0.00.0 per 100 WBCThe Christ HospitalPlatelet distribution width (Bld) [Ratio] 15.0 %High11.8 - 14.4 %The Christ HospitalPlatelet EstimateNOT REPORTEDThe [facility] Hospital Platelet mean volume (Bld) [Entitic vol]10.5 fL8.1 - 13.5 fLThe Christ Hospital Platelets (Bld) [#/Vol]140 10*3/uLFirelands Regional [facility] Campus HealthRBC (Bld) [#/Vol]3.52 10*6/uLLow 4.21 - 5.77 m/uLFirelands [facility] HealthRBC (Bld) [#/Vol]NOT REPORTEDThe Christ HospitalSegmented neutrophils/100 WBC (Bld)70 %High36 - 65 %The Christ HospitalSegs Absolute5.81MerOdessa Memorial Healthcare CenterWBC (Bld) [#/Vol]8.3 10*3/uLThe Christ HospitalWBC (Bld) [#/Vol]NOT REPORTEDMorrow County Hospital HealthCREATININE, RANDOM URINEon [id number], Ur64.4 mg/dL 39.0 - 259.0 mg/dLFirelands Regional [facility] HealthCatheterization and angiography procedure details panelOrdered By: Unknown Result on [id number] HealthComprehensive Metabolic Panel w/ Reflex to MGon [id number] [Mass/Vol]1.9 g/dLLow3.5 - 5.2 g/dL [facility] HealthAlbumin/Globulin [Mass ratio]0.5 {ratio}LowMer HealthALP (Bld) [Catalytic activity/Vol]117 U/L40 - 129 U/LMercy HealthALT [Catalytic activity/Vol]64 U/LHigh5 - 41 U/LMercy HealthAnion gap [Moles/Vol]7 mmol/LLow9 - 17 mmol/LMercy HealthAST [Catalytic activity/Vol]55 U/LHigh<40[facility] Health Bilirubin [Mass/Vol]0.38 mg/dL0.3 - 1.2 mg/dLFirelands Regional [facility] HealthCalcium [Mass/Vol]7.0 mg/dLLow8.6 - 10.4 mg/dLFirelands [facility] HealthChloride [Moles/Vol]100 mmol/L98 - 107 mmol/LMercy HealthCO2 [Moles/Vol]22 mmol/L20 - 31 mmol/LMercy HealthCreatinine [Mass/Vol]0.55 mg/dLLow0.70 - 1.20 mg/dLFirelands [facility] HealthFree PSA/Total PSA [Mass fraction]5.7 g/dLLow6.4 - 8.3 g/dLFirelands Regional [facility] HealthGFR >60>60 mL/min [facility] HealthGFR Non->60>60 mL/minFirelands Regional Medical Center South Campus HealthGFR/1.73 sq M.predicted MDRD (S/P/Bld) [Vol rate/Area]The Christ HospitalComment on above:Average GFR for 30-39 years old: 107 mL/min/1.73sq m Chronic Kidney Disease: <60 mL/min/1.73sq m Kidney failure: <15 mL/min/1.73sq m eGFR calculated using average adult body mass. Additional eGFR calculator available at: http://www.G3/multiple_crcl_2012.htm GFR/1.73 sq M.predicted MDRD (S/P/Bld) [Vol rate/Area]NOT REPORTEDThe [facility] Hospital Glucose [Mass/Vol]111 mg/tKDbap20 - 99 mg/dLThe Christ HospitalPotassium [Moles/Vol]4.2 mmol/L3.7 - 5.3 mmol/LMercy HealthSodium [Moles/Vol]129 mmol/JBpa708 - 144 mmol/LMercy HealthUrea nitrogen (BldV) [Mass/Vol]9 mg/dL6 - 20 mg/dLThe [facility] Hospital Urea nitrogen/Creatinine (Bld) [Mass ratio]NOT REPORTEDThe Christ HospitalCulture, Blood 1on 79-85-8575Bdkoqfph identified Cx Nom (Unsp spec)PositiveAbnormalFirelands Regional Medical Center South Campus HealthBacteria identified Cx Nom (Unsp spec)DIRECT GRAM STAIN FROM BOTTLE: GRAM POSITIVE COCCI IN CLUSTERSThe Christ HospitalBacteria identified Cx Nom (Unsp spec) Staphylococcus aureus Detected: mecA/C and MREJ Gene Detected- Methicillin Resistant Organism Methodology- Polymerase Chain Reaction (PCR)AbnormalThe Christ HospitalBacteria identified Cx Nom (Unsp spec)METHICILLIN RESISTANT STAPHYLOCOCCUS AUREUSAbnormalThe Christ HospitalBacteria identified Cx Nom (Unsp spec)(NOTE) Direct Gram Stain from bottle and Polymerase Chain Reaction (PCR) results called to and readback by:DIANE Martinez AT 1440 ON 12/14/2021[facility] HealthInterpretation and review of laboratory resultsAbnoMercy HealthSpecial RequestsRT AC 10 [facility] Specimen Description.BLOODMorrow County Hospital HealthNo Panel Informationon [id number] HealthInterpretation and review of laboratory resultsAbnormal [facility] HealthOsmolality, Urineon [id number], Gi727MnloiMorrow County Hospital HealthSODIUM, URINE, RANDOMon 65-53-0881Nblhel (U) [Moles/Vol]140 mmol/LMercy HealthComment on above:No normal range established.Vancomycin, Randomon [id number] Random Date last doseNOT REPORTEDThe Christ Hospital Vancomycin Random Dose amountNOT REPORTEDMer HealthVancomycin Random Time last doseNOT REPORTEDThe Christ HospitalVancomycin Rm14 ug/mLKing's Daughters Medical [facility] [place] on above: Higher trough serum vancomycin concentrations of 15-20 ug/mL are recommended for complicated infections such as bacteremia, endocarditis, osteomyelitis, meningitis, and hospital acquired pneumonia. [facility] Metabolic Panel w/ Reflex to MGon [id number] gap [Moles/Vol]6 mmol/LLow9 - 17 mmol/LMercy HealthCalcium [Mass/Vol]7.6 mg/dLLow8.6 - 10.4 mg/dLFirelands Regional [facility] HealthChloride [Moles/Vol]106 mmol/L98 - 107 mmol/LMercy HealthCO2 [Moles/Vol]23 mmol/L20 - 31 mmol/LMercy HealthCreatinine [Mass/Vol] 0.55 mg/dLLow0.70 - 1.20 mg/dLThe Christ HospitalGFR >60>60 mL/minFirelands Regional Medical Center South Campus HealthGFR Non->60>60 mL/minFirelands Regional Medical Center South Campus HealthGFR/1.73 sq M.predicted MDRD (S/P/Bld) [Vol rate/Area][facility] [place] on above:Average GFR for 30-39 years old: 107 mL/min/1.73sq m Chronic Kidney Disease: <60 mL/min/1.73sq m Kidney failure: <15 mL/min/1.73sq m eGFR calculated using average adult body mass. Additional eGFR calculator available at: http://www.G3/multiple_crcl_2012.htm GFR/1.73 sq M.predicted MDRD (S/P/Bld) [Vol rate/Area]NOT REPORTEDThe [facility] Hospital Glucose [Mass/Vol]111 mg/iQLumw46 - 99 mg/dLThe Christ HospitalInterpretation and review of laboratory resultsAbnormalThe Christ HospitalPotassium [Moles/Vol]3.6 mmol/L Low3.7 - 5.3 mmol/LMercy HealthSodium [Moles/Vol]135 mmol/L135 - 144 mmol/LMercy HealthUrea nitrogen (BldV) [Mass/Vol]13 mg/dL6 - 20 mg/dLThe Christ HospitalUrea nitrogen/Creatinine (Bld) [Mass ratio]NOT REPORTEDAurora Health Care Bay Area Medical CenterCBC auto differentialon [id number] Eos #0.20Mer HealthAbsolute Immature Granulocyte0.05Mer HealthAbsolute Lymph #1.04LowMer HealthAbsolute [place] # 0.87Mer HealthBasophils (Bld) [#/Vol]0.03 10*3/uLFirelands Regional Medical Center [facility] Campus HealthBasophils/100 WBC (Bld)0 %0 - 2 %The [facility] HospitalDifferential TypeNOT REPORTEDThe [facility] Hospital Eosinophils/100 WBC (Bld)2 %1 - 4 %The Christ HospitalHematocrit (Bld) [Volume fraction]30.8 %Low40.7 - 50.3 %[facility] HospitalHemoglobin.gastrointestinal spec 1 Ql (Stl)10.3 g/dLLow13.0 - 17.0 g/dLThe Christ HospitalImmature granulocytes/100 WBC (Bld) 1 %Adop6DdiznThe Christ HospitalInterpretation and review of laboratory resultsAbnormalThe Christ HospitalLymphocytes/100 WBC (Bld)11 %Low24 - 43 %[facility] HospitalH (RBC) [Entitic mass]27.9 pg25.2 - 33.5 pgMarietta Memorial HospitalHC (RBC) [Mass/Vol]33.4 g/dL28.4 - 34.8 g/dLMarietta Memorial HospitalV (RBC) [Entitic vol]83.5 fL82.6 - 102.9 fLThe [facility] Hospital Monocytes/100 WBC (Bld)9 %3 - 12 %The Christ HospitalNRBC Automated0.00.0 per 100 WBC The Christ HospitalPlatelet distribution width (Bld) [Ratio]14.7 %High11.8 - 14.4 % The Christ HospitalPlatelet EstimateNOT REPORTEDFirelands [facility] HealthPlatelet mean volume (Bld) [Entitic vol]10.8 fL8.1 - 13.5 fLFirelands Regional Medical Center [facility] Campus HealthPlatelets (Bld) [#/Vol]150 10*3/uL [facility] HealthRBC (Bld) [#/Vol]3.69 10*6/uLLow4.21 - 5.77 m/uLFirelands Regional [facility] HealthRBC (Bld) [#/Vol]ANISOCYTOSIS PRESENTThe Christ HospitalSegmented neutrophils/100 WBC (Bld) 77 %High36 - 65 %The Christ HospitalSegs Absolute7.03Mercy HealthWBC (Bld) [#/Vol]9.2 10*3/uLACMC Healthcare System GlenbeighBC (d) [#/Vol]NOT REPORTEDAurora Health Care Bay Area Medical CenterCULTURE BLOODon [id number] examination of blood, cultureSpecimen Comments: L WRIST Culture Observations: METHICILLIN RESISTANT [...] >=8 R F Clindamycin <=0.25 S F Quinupristin/Dalfopristin <=0.25 S F Linezolid 1 S F Vancomycin 1 S F Tetracycline <=1 S F Rifampicin <=0.5 S F Trimethoprim/Sulfamethoxazole <=10 S F Oxacillin >=4 R FNormalAultman Alliance Community HospitalComment on above:Performed By: #### CBCMAN #### [facility] [address] [place] [address] Dr. Amanda Bertrandime-INRon 85-40-6298PQH Coag (Bld) [Relative time]1.2 {INR} The Christ HospitalComment on above: Therapeutic Range: Moderate Anticoagulant Intensity: INR = 2.0-3.0 High Anticoagulant Intensity: INR = 2.5-3.5 Interpretation and review of laboratory resultsAbnormAdams County Regional Medical CenterPT Coag (PPP) [Time][address] [facility] MilwaukeeBasic Metabolic Panel w/ Reflex to MGon 65-21-5395Idwht gap [Moles/Vol]9 mmol/L9 - 17 mmol/LMercy HealthCalcium [Mass/Vol]7.4 mg/dLLow8.6 - 10.4 mg/dLFirelands Regional [facility] HealthChloride [Moles/Vol]104 mmol/L 98 - 107 mmol/LMercy HealthCO2 [Moles/Vol]22 mmol/L20 - 31 mmol/LMercy Health Creatinine [Mass/Vol]0.56 mg/dLLow0.70 - 1.20 mg/dLFirelands Regional [facility] HealthGFR >60>60 mL/minFirelands Regional Medical Center South Campus HealthGFR Non->60>60 mL/minFirelands Regional Medical Center South Campus HealthGFR/1.73 sq M.predicted MDRD (S/P/Bld) [Vol rate/Area]The Christ HospitalComment on above:Average GFR for 30-39 years old: 107 mL/min/1.73sq m Chronic Kidney Disease: <60 mL/min/1.73sq m Kidney failure: <15 mL/min/1.73sq m eGFR calculated using average adult body mass. Additional eGFR calculator available at: http://www.G3/multiple_crcl_2011.htm GFR/1.73 sq M.predicted MDRD (S/P/Bld) [Vol rate/Area]NOT REPORTEDThe [facility] Hospital Glucose [Mass/Vol]121 mg/nKRovt54 - 99 mg/dLThe Christ HospitalInterpretation and review of laboratory resultsAbnoMercy HealthPotassium [Moles/Vol]3.4 mmol/L Low3.7 - 5.3 mmol/LMercy HealthSodium [Moles/Vol]135 mmol/L135 - 144 mmol/LMercy HealthUrea nitrogen (BldV) [Mass/Vol]9 mg/dL6 - 20 mg/dLThe Christ HospitalUrea nitrogen/Creatinine (Bld) [Mass ratio]NOT REPORTEDOsceola Ladd Memorial [facility] Center- Reactive Proteinon [id number] [Mass/Vol]110.3 mg/LHigh0.0 - 5.0 mg/LMercy HealthInterpretation and review of laboratory resultsAbnormAurora Health Care Bay Area Medical CenterCBC AUTO DIFFon [id number] #0.0 103/ulNormal0.0-0.1The Uc HealthComment on above:Performed By: #### ARMAANT #### [facility] [address] [address] [address] Amanda Ibarraphils/100 WBC (Bld)0.2 %Normal0.2-2.0The [facility] Comment on above:Performed By: #### ARMAANT #### [facility] [address] [address] [address] Amanda Parker #0.1 103/ulNormal0.0-0.7The Uc HealthComment on above: Performed By: #### VANCT #### [facility] [address] [place] [address] Dr. Amanda Pruittosinophils/100 WBC (Bld)1.0 %Normal0.9-7.0[facility] Comment on above:Performed By: #### VANCT #### [facility] [address] [place] [address] Dr. Amanda Pruittrythrocyte distribution width (RBC) [Ratio]14.6 %Ofbljl28.0-15.0 [facility] HospitalComment on above:Performed By: #### VANCT #### [facility] [address] [place] [address] Dr. Amanda CottrellHematocrit (Bld) [Volume fraction]31.3 %Critically low42.0-54.0 [facility] HospitalComment on above:Performed By: #### VANCT #### [facility] [address] [place] [address] Dr. Amanda CottrellHemoglobin (Bld) [Mass/Vol]10.4 g/dLCritically low14.0-18.0[facility] HospitalComment on above:Performed By: #### VANCT #### [facility] [address] [place] [address] Dr. Amanda Beal #0.07 10e3/ulCritically high0.00-0.03The [facility] Comment on above:Performed By: #### VANCT #### [facility] [address] [place] [address] Dr. Amanda Beal %0.8 %Critically high0.0-0.5The Uc HealthComment on above:Performed By: #### VANCT #### [facility] [address] [place] [address] Dr. Amanda Jhaveri #0.5 103/ulCritically low1.2-3.8The [facility] Comment on above:Performed By: #### VANCT #### [facility] [address] [place] [address] Dr. Amanda Nicolemphocytes/100 WBC (Bld)5.0 %Critically low20.5-60.0The [facility]c HealthComment on above:Performed By: #### VANCT #### [facility] [address] [place] [address] Dr. Amanda BowdenUAL DIFF REQNONormalThe Uc HealthComment on above: Performed By: #### VANCT #### [facility] [address] [place] [address] Dr. Amanda Lynne (RBC) [Entitic mass]27.5 bgYocfog89.9-34.0The Uc HealthComment on above:Performed By: #### VANCT #### [facility] [address] [place] [address] Dr. Amanda Lynne (RBC) [Mass/Vol]33.2 g/hKTubeac98.9-35.2The Uc HealthComment on above:Performed By: #### VANCT #### [facility] [address] [place] [address] Dr. Amanda Saleh (RBC) [Entitic vol]82.8 vSOxifrc19.0-94.0The Uc HealthComment on above:Performed By: #### VANCT #### [facility] [address] [place] [address] Dr. Amanda Witt #0.7 103/ulNormal0.3-0.8The Uc HealthComment on above:Performed By: #### VANCT #### [facility] [address] [place] [address] Dr. Amanda Wareocytes/100 WBC (Bld)7.9 %Normal1.7-12.0The [facility] Comment on above:Performed By: #### VANCT #### [facility] [address] [place] [address] Dr. Amanda Malave #7.9 103/ulCritically high1.4-6.5The [facility] Comment on above:Performed By: #### VANCT #### [facility] [address] [place] [address] Dr. Amanda CottrellNeutrophils/100 WBC (Bld)85.1 %Critically high43.0-75.0The Uc HealthComment on above:Performed By: #### VANCT #### [facility] [address] [place] [address] Dr. Amanda Riveralet mean volume (Bld) [Entitic vol]11.1 fLNormal9.5-13.5The Uc HealthComment on above:Performed By: #### VANCT #### [facility] [address] [place] [address] Dr. Amanda CottrellPLT98 103/ulCritically ysk643-623Khf Uc HealthComment on above:Performed By: #### VANCT #### [facility] [address] [place] [address] Dr. Amanda CottrellRBC3.78 106/ulCritically low4.70-6.10The [facility]c HealthComment on above:Performed By: #### VANCT #### [facility] [address] [place] [address] Dr. Amanda CottrellWBC9.2 103/ulNormal4.0-11.0The Uc HealthComment on above: Performed By: #### VANCT #### [facility] [address] [place] [address] Dr. Amanda CottrellSAINT JOSEPH LONDON Auto Differentialon [id number] Eos #0.14[facility] Absolute Immature Granulocyte0.03Mercy HealthAbsolute Lymph #0.86LowMercy Health Absolute [place] #0.92Mercy HealthBasophils (Bld) [#/Vol]10*3/uLMercy Health Basophils/100 WBC (Bld)0 %0 - 2 %Mercy HealthDifferential TypeNOT REPORTEDMercy HealthEosinophils/100 WBC (Bld)2 %1 - 4 %Mercy HealthHematocrit (Bld) [Volume fraction]28.9 %Low40.7 - 50.3 %The [facility] HospitalHemoglobin.gastrointestinal spec 1 Ql (Stl)10.1 g/dLLow13.0 - 17.0 g/dLThe Christ HospitalImmature granulocytes/100 WBC (Bld) 0 %0The [facility] HospitalInterpretation and review of laboratory resultsAbnormalThe Christ HospitalLymphocytes/100 WBC (Bld)10 %Low24 - 43 %[facility] HospitalH (RBC) [Entitic mass]28.3 pg25.2 - 33.5 pgMarietta Memorial HospitalHC (RBC) [Mass/Vol]34.9 g/nMBmcj78.4 - 34.8 g/dLMarietta Memorial HospitalV (RBC) [Entitic vol]81.0 fLLow82.6 - 102.9 fLThe Christ HospitalMonocytes/100 WBC (Bld)10 %3 - 12 %The [facility] HospitalNRBC Automated0.00.0 per 100 WBCThe Christ HospitalPlatelet distribution width (Bld) [Ratio]14.5 %High11.8 - 14.4 %The Christ HospitalPlatelet EstimateNOT REPORTEDFirelands [facility] HealthPlatelet mean volume (Bld) [Entitic vol]NOT REPORTED8.1 - 13.5 fLFirelands Regional Medical Center [facility] Campus HealthPlatelets (Bld) [#/Vol] See Reflexed IPF ResultThe Christ HospitalRBC (Bld) [#/Vol]3.57 10*6/uLLow4.21 - 5.77 m/uLThe Christ HospitalRBC (Bld) [#/Vol]ANISOCYTOSIS PRESENTFirelands Regional Medical Center South Campus HealthComment on above:MICROCYTOSIS PRESENTSegmented neutrophils/100 WBC (Bld)78 %High36 - 65 % The Christ HospitalSegs Absolute7.08The Christ HospitalWBC (Bld) [#/Vol]9.1 10*3/uLThe Christ HospitalWBC (Bld) [#/Vol]NOT REPORTEDAurora Health Care Bay Area Medical CenterD-Dimer, Quantitative on 31-93-9282V-Dimer, Quant2.63mg/L FEUpper Valley Medical Center HealthComment on above: When combined with a low [...] more prevalent in patients with distal DVT. [facility] MaterialsMon[facility] Hospital Platelet Fractionon [id number] and review of laboratory resultsAbnormAdams County Regional Medical CenterPlatelet, Pcfpapaddmbp196KyiZwruu Imaginova Platelet, Immature Fraction3.4 %1.1 - 10.3 %[facility], BeachwoodFoundshopping.comAvita Health System Ontario HospitalEstorian The Jewish HospitalMagnesiumon [id number] [Mass/Vol]1.9 mg/dL1.6 - 2.6 mg/dLAvita Health System Ontario HospitalrFactr, Inc.[facility] HospitalEstorian The Jewish HospitalNo Panel Informationon [id number] wrist: No fracture. Left ankle: No fracture. Moderate soft tissue swelling at the site of insertion of Achillis tendon to calcaneus. [facility] RIS CONSOLIDATEDEXAMINATION: XRAY VIEWS OF THE LEFT WRIST; THREE [...] of insertion of Achillis tendon to calcaneus. [facility] Akanksha Aragon MD - 12/13/2021 EXAMINATION: XRAY VIEWS OF [...] of insertion of Achillis tendon to calcaneus. [email or web address] Phone: radiology Study observation (narrative)[email or web address] Phone: No Panel InformationOrdered By: Akanksha Santoro on [id number] Work Phone: PROF CHEM 8 (BAS METB)on [id number] gap [Moles/Vol]9.4 mmol/LNormalAultman Alliance Community HospitalComment on above:Performed By: #### BMP #### [facility] [address] [place] [address] Dr. Amanda CottrellCalcium [Mass/Vol]7.4 mg/dLCritically low8.4-10.2The Uc HealthComment on above:Performed By: #### BMP #### [facility] [address] [place] [address] Dr. Amanda CottrellChloride [Moles/Vol]102 mmol/XFjstmz47-421Nua [facility] Comment on above:Performed By: #### BMP #### [facility] [address] [place] [address] Dr. Amanda CottrellCO2 [Moles/Vol]24.8 mmol/SFxmkaw11.0-30.0The [facility] Comment on above:Performed By: #### BMP #### [facility] [address] [place] [address] Dr. Amanda CottrellCreatinine [Mass/Vol]0.65 mg/dLCritically low0.66-1.25The [facility]c HealthComment on above:Performed By: #### BMP #### [facility] [address] [place] [address] Dr. Patel ChangEGFR-AF OMANI>60Normal>=60The [facility]c HealthComment on above:Performed By: #### BMP #### [facility] [address] [place] [address] Dr. Amanda PruittGFR-NON AF OMANI>60Normal>=60The [facility]c HealthComment on above:Performed By: #### BMP #### [facility] [address] [place] [address] Dr. Amanda CottrellGlucose [Mass/Vol]115 mg/dLCritically kubv38-220Hnh [facility]c HealthComment on above:Performed By: #### BMP #### [facility] [address] [place] [address] Dr. Amanda CottrellPotassium [Moles/Vol]3.2 mmol/LCritically low3.4-5.0The [facility]c HealthComment on above:Performed By: #### BMP #### [facility] [address] [place] [address] Dr. Amanda CottrellSodium [Moles/Vol]133 mmol/LCritically zjr381-320Zej Uc HealthComment on above:Performed By: #### BMP #### [facility] [address] [place] [address] Dr. Amanda CottrellUrea nitrogen [Mass/Vol]9.0 mg/dLNormal9.0-20.0The [facility]c HealthComment on above:Performed By: #### BMP #### [facility] [address] [place] [address] Dr. Amanda Godwin nitrogen/Creatinine [Mass ratio]13.8 mg/mgNormalThe [facility]c HealthComment on above:Performed By: #### BMP #### [facility] [address] [address] [address] Amanda Neri REJECTIONon 12-13-2021-NOT REPORTEDFirelands Regional [facility] Campus HealthOrdered TestCDP,[facility] HealthReason for RejectionUnable to perform testing: Specimen clotted.[facility] ImaginovaSpecimen source Nom (Unsp spec).BLOODFirelands Regional Medical Center South Campus HealthFirelands Regional Medical [facility] Campus HealthTroponinon [id number] InterpNOT REPORTEDThe Christ HospitalTroponin TNOT REPORTED<0.03 ng/mLThe Christ HospitalTroponin, High Sensitivity<60 - 22 ng/LMercy HealthComment on above: High Sensitivity Troponin values cannot be compared with other Troponin methodologies. Patients with high levels of Biotin oral intake (i.e >5mg/day) may have falsely decreased Troponin levels. Samples collected within 8 hours of biotin intake may require additional information for diagnosis. The Christ HospitalVANCOMYCIN TROUGHon [id number] TROUGH9.8 ug/mlNormal 5.0-20.0The [facility]c HealthComment on above:Performed By: #### VANCT #### [facility] [address] [place] [address] Dr. Amanda Bolton W MANUAL DIFFon [id number]+NormalThe Uc HealthComment on above:Performed By: #### RAJESH #### [facility] [address] [address] [address] Amanda Pabon LYMPH #NormalThe Uc HealthComment on above: Performed By: #### RAJESH #### [facility] [address] [address] [address] Amanda Pabon LYMPH %NormalThe Uc HealthComment on above: Performed By: #### RAJESH #### [facility] [address] [address] [address] Amanda Blanco #0.7 103/ulCritically high0.0-0.3The [facility] Comment on above:Performed By: #### CBCMACY #### [facility] [address] [address] [address] Amanda Blanco %8 %Critically high0-5The Uc HealthComment on above: Performed By: #### CBCMACY #### [facility] [address] [address] [address] Amanda Castro #0.00 103/ulNormal0.00-0.10The Hoople HospitalComment on above:Performed By: #### CBCMACY #### [facility] [address] [address] [address] Amanda Castro %0.0 %Critically low0.2-2.0The [facility]c HealthComment on above:Performed By: #### RAJESH #### [facility] [address] [place] [address] Dr. Amanda Haney #NormalThe Hoople HospitalComment on above:Performed By: #### RAJESH #### [facility] [address] [address] [address] Amanda Haney %NormalAultman Alliance Community HospitalComment on above:Performed By: #### RAJESH #### [facility] [address] [address] [address] Amanda CottrellCORRECTED WBCNormal4.0-11.0The [facility]c HealthComment on above: Performed By: #### CBCMACY #### [facility] [address] [place] [address] Dr. Amanda Borjas #0.00 103/ulNormal0.00-0.70The [facility]c HealthComment on above:Performed By: #### CBCMACY #### [facility] [address] [address] [address] Amanda Borjas%0.0 %Critically low0.9-7.0The [facility]c HealthComment on above:Performed By: #### CBCMACY #### [facility] [address] [address] [address] Amanda CottrellHCT28.7 %Critically low42.0-54.0The [facility]c HealthComment on above:Performed By: #### CBCMAN #### [facility] [address] [address] [address] Amanda CottrellB9.5 g/dlCritically low14.0-18.0The [facility]c HealthComment on above:Performed By: #### CBCMAN #### [facility] [address] [address] [address] Amanda Ac #0.49 103/ulCritically low1.20-3.80The [facility] on above:Performed By: #### CBCMACY #### [facility] [address] [address] [address] Amanda Ac%6.0 %Critically low20.5-60.0The [facility]c HealthComment on above:Performed By: #### CBCMACY #### [facility] [address] [address] [address] Amanda LynneH27.4 egBcmswf13.9-34.0The [facility]c HealthComment on above: Performed By: #### CBCMACY #### [facility] [address] [address] [address] Amanda LynneHC33.1 g/poJgggtc34.9-35.2The [facility]c HealthComment on above:Performed By: #### CBCMACY #### [facility] [address] [address] [address] Amanda LynneV82.7 qYUzkuuz04.0-94.0The [facility]c HealthComment on above: Performed By: #### CBCMAN #### [facility] [address] [address] [address] Amanda GomezOCYTE #NormalThe [facility]c HealthComment on above: Performed By: #### CBCMAN #### [facility] [address] [address] [address] Amanda GomezOCYTE %NormalThe [facility]c HealthComment on above: Performed By: #### CBCMAN #### [facility] [address] [address] [address] Amanda Youssef#0.74 103/ulNormal0.30-0.80The [facility]c HealthComment on above:Performed By: #### RAJESH #### [facility] [address] [place] [address] Dr. Amanda Youssef%9.0 %Normal1.7-12.0The [facility]c HealthComment on above: Performed By: #### RAJESH #### [facility] [address] [place] [address] Dr. Amanda CottrellMPV10.5 fLNormal9.5-13.5The [facility]c HealthComment on above: Performed By: #### RAJESH #### [facility] [address] [place] [address] Dr. Amanda PonceOCYTE #NormalThe [facility] HealthComselect specialty hospital-flint on above:Performed By: #### RAJESH #### [facility] [address] [place] [address] Dr. Amanda PonceOCYTE %NormalThe [facility]c HealthComment on above:Performed By: #### RAJESH #### [facility] [address] [place] [address] Dr. Amanda CottrellNRBCNormalThe [facility] HealthComselect specialty hospital-flint on above:Performed By: #### RAJESH #### [facility] [address] [place] [address] Dr. Amanda CottrellPLT95 103/ulCritically jru221-535Erd [facility]c HealthComment on above:Performed By: #### RAJESH #### [facility] [address] [place] [address] Dr. Amanda CottrellRBC3.47 106/ulCritically low4.70-6.10The [facility]c HealthComment on above:Performed By: #### RAJESH #### [facility] [address] [place] [address] Dr. Amanda CottrellRDW14.3 %Sbjvmo90.0-15.0The [facility]c HealthComment on above: Performed By: #### RAJESH #### [facility] [address] [address] [address] Amanda Roman #6.31 103/ulNormal1.40-6.50The [facility]c HealthComment on above:Performed By: #### CBCMACY #### [facility] [address] [address] [address] Amanda Roman %77.0 %Critically high43.0-75.0The [facility]c HealthComment on above:Performed By: #### CBCMACY #### [facility] [address] [id number] Amanda CottrellWBC8.2 103/ulNormal4.0-11.0The [facility]c HealthComment on above: Performed By: #### RAJESH #### [facility] [id number] Amanda Ventura LIMITED STUDYon [id number] LIMITED STUDYPatient: COTYTIP Exam Date: 12/12/2021 : 1980 Gender:M Ordering : DR EMY REBOLLEDO . Admission #: [id number] Family : Order #: [id number] CLICK HERE TO VIEW EXAM ECHOCARDIOGRAM REPORT [...] on 12/12/2021 at 16:12 Approved by: Luis Myoer M.D. on 12/12/2021 at 16:15NormalAultman Alliance Community HospitalPROF 14(COMP METB)on [id number] [Mass/Vol]1.6 g/dLCritically low 3.5-5.0A[facility] Alliance Community HospitalComment on above:Performed By: #### VANCT #### [facility] [address] [place] [address] Dr. Amanda CottrellAlbumin/Globulin [Mass ratio]0.4 {ratio}NormalThe [facility]c HealthComment on above:Performed By: #### VANCT #### [facility] [address] [place] [address] Dr. Amanda Rendon [Catalytic activity/Vol]71 U/NLgjyyg44-119Rvd Uc HealthComment on above:Performed By: #### VANCT #### [facility] [address] [place] [address] Dr. Amanda Lew [Catalytic activity/Vol]30 U/LBnigow94-37Quw [facility]c HealthComment on above:Performed By: #### VANCT #### [facility] [address] [place] [address] Dr. Amanda Valverde gap [Moles/Vol]10.0 mmol/LNormalThe [facility] Comment on above:Performed By: #### VANCT #### [facility] [address] [place] [address] Dr. Amanda Penn [Catalytic activity/Vol]21 U/JMqlpek97-74Wnn [facility]c HealthComment on above:Performed By: #### VANCT #### [facility] [address] [place] [address] Dr. Amanda CottrellBilirubin [Mass/Vol]0.7 mg/dLNormal0.2-1.3The [facility] Comment on above:Performed By: #### VANCT #### [facility] [address] [place] [address] Dr. Amanda CottrellCalcium [Mass/Vol]7.8 mg/dLCritically low8.4-10.2[facility] Centerment on above:Performed By: #### VANCT #### [facility] [address] [address] [address] Amanda CottrellChloride [Moles/Vol]100 mmol/FFgapsy46-358Njd [facility] Comment on above:Performed By: #### VANCT #### [facility] [address] [address] [address] Amanda CottrellCO2 [Moles/Vol]23.1 mmol/HFjjblg07.0-30.0The [facility] Comment on above:Performed By: #### VANCT #### [facility] [address] [address] [address] Amanda CottrellCreatinine [Mass/Vol]0.67 mg/dLNormal0.66-1.25The [facility]c HealthComment on above:Performed By: #### VANCT #### [facility] [address] [address] [address] Amanda PruittGFR-AF OMANI>60Normal>=60The [facility]c HealthComment on above:Performed By: #### VANCT #### [facility] [address] [address] [address] Amanda PruittGFR-NON AF OMANI>60Normal>=60The [facility]c HealthComment on above:Performed By: #### VANCT #### [facility] [address] [address] [address] Amanda CottrellGlobulin (S) [Mass/Vol]3.8 g/dLNormalThe [facility] HealthComment on above:Performed By: #### VANCT #### [facility] [address] [address] [address] Amanda CottrellGlucose [Mass/Vol]113 mg/dLCritically jvpj05-556Ogc [facility] on above:Performed By: #### VANCT #### [facility] [address] [address] [address] Amanda CottrellPotassium [Moles/Vol]3.1 mmol/LCritically low3.4-5.0The [facility]c HealthComment on above:Performed By: #### VANCT #### [facility] [address] [place] [address] Dr. Amanda CottrellProtein [Mass/Vol]5.4 g/dLCritically low6.1-8.2The [facility]c HealthComment on above:Performed By: #### VANCT #### [facility] [address] [place] [address] Dr. Amanda CottrellSodium [Moles/Vol]130 mmol/LCritically exb616-076Mgh [facility]c HealthComment on above:Performed By: #### VANCT #### [facility] [address] [place] [address] Dr. Amanda CottrellUrea nitrogen [Mass/Vol]12.0 mg/dLNormal9.0-20.0The [facility] HealthComment on above:Performed By: #### VANCT #### [facility] [address] [place] [address] Dr. Amanda Godwin nitrogen/Creatinine [Mass ratio]17.9 mg/mgNoMetroHealth Cleveland Heights Medical CenterComment on above:Performed By: #### VANCT #### [facility] [address] [place] [address] Dr. Amanda CottrellXR CHEST 1 Von [id number] CHEST 1 VEXAM: XR CHEST 1 V HISTORY: Peripherally inserted [...] Electronically authenticated by: JOELLE MEDEIROS Date: 2021-12-12 12:09[facility] CULTURE ID PANELon [id number] Set:Set 1NormalThe [facility]c HealthComment on above:Performed By: #### VANCT #### [facility] [address] [place] [address] Dr. Amanda Quiles CULTURE ID PANEL SUBSEQUENTon 12-11-2021. baumanniiNot detectedMercy Health St. Rita's Medical CenterComment on above:Performed By: #### BCIDSUB #### [facility] [address] [place] [address] Dr. Amanda Cansecoformed By: #### VANCT #### [facility] [address] [place] [address] Dr. Amanda Clinton CONTROLSPASSEDMercy Health St. Rita's Medical CenterComment on above: Performed By: #### BCIDSUB #### [facility] [address] [place] [address] Dr. Amanda Cansecoformed By: #### VANCT #### [facility] [address] [place] [address] Dr. Amanda ClintonBTHDBLTAYLOR CULTURE BOTTLE INFORMATIONMercy Health St. Rita's Medical CenterComment on above:Performed By: #### BCIDSUB #### [facility] [address] [place] [address] Dr. Amanda Cansecoformed By: #### VANCT #### [facility] [address] [place] [address] Dr. Amanda ClintonWttzjQTGMUA2SSBTCFEATHWXX RESISTANCE GENESMercy Health St. Rita's Medical Center Comment on above:Performed By: #### BCIDSUB #### [facility] [address] [place] [address] Dr. Amanda Cansecoformed By: #### VANCT #### [facility] [address] [place] [address] Dr. Amanda ClintonHD2SEE BELOWMercy Health St. Rita's Medical CenterComment on above: Result Comment: KPC- carbapenem resistance gene, mecA- methecillin resistance gene, van A/B- vancomycin resistance gene Note: Antimicrobial resitance can occur via multiple mechanisms. A Not Detectedresult for the FilmArray antomicrobial resistance gene assays does not indicate antimicrobial suscep tibility. Subculturing is required for specis identificationand susceptibility testing of isolates.Performed By: #### BCIDSUB #### [facility] [address] [place] [address] Dr. Amanda Cansecoformed By: #### VANCT #### [facility] [address] [place] [address] Dr. Amanda ClintonHxrcdKVXKEV7IdciugolJpdpsnBhzMercy Health St[facility] on above: Performed By: #### BCIDSUB #### [facility] [address] [place] [address] Dr. Amanda Cansecoformed By: #### VANCT #### [facility] [address] [place] [address] Dr. Amanda ClintonSpjqgKKQRDI5YpcfyxyyKsuezmDsbLake County [facility] on above: Performed By: #### BCIDSUB #### [facility] [address] [place] [address] Dr. Amanda Cansecoformed By: #### VANCT #### [facility] [address] [place] [address] Dr. Amanda ClintonRgcmyRZNHSA9DHKNITsgcanKxqMarymount Hospital on above:Performed By: #### BCIDSUB #### [facility] [address] [place] [address] Dr. Amanda Cansecoformed By: #### VANCT #### [facility] [address] [place] [address] Dr. Amanda ClintonHD6SEE [facility] on above: Result Comment: Note: All genus and species BCID FilmArray results will be verified post subculturing via Maldi-Tof MS testing methodology.Performed By: #### BCIDSUB #### [facility] [address] [place] [address] Dr. Amanda Cansecoformed By: #### VANCT #### [facility] [address] [place] [address] Dr. Amanda Gottlieb Set:Set 2NormalPremier Health [facility] on above: Performed By: #### BCIDSUB #### [facility] [address] [place] [address] Dr. Amanda Gottlieb:AerobicNoMercy Health St. Rita's Medical Center HospitalComment on above: Performed By: #### BCIDSUB #### [facility] [address] [address] [address] Amanda Cansecoformed By: #### VANCT #### [facility] [address] [address] [address] Amanda Gottlieb:AnaerobicNoMercy Health St. Rita's Medical Center HospitalComment on above: Performed By: #### BCIDSUB #### [facility] [address] [address] [address] Amanda Sahu albicansNot detectedMercy Health St. Rita's Medical CenterComment on above:Performed By: #### BCIDSUB #### [facility] [address] [address] [address] Amanda Cansecoformed By: #### VANCT #### [facility] [address] [address] [address] Amanda Sahu glabrataNot detectedMercy Health St. Rita's Medical CenterComment on above:Performed By: #### BCIDSUB #### [facility] [address] [address] [address] Amanda Cansecoformed By: #### VANCT #### [facility] [address] [address] [address] Amanda Sahu KruseiNot detectedMercy Health St. Rita's Medical CenterComment on above:Performed By: #### BCIDSUB #### [facility] [address] [address] [address] Amanda Cansecoformed By: #### VANCT #### [facility] [address] [address] [address] Amanda Sahu ParapsilosisNot [facility] on above:Performed By: #### BCIDSUB #### [facility] [address] [address] [address] Amanda Cansecoformed By: #### VANCT #### [facility] [address] [address] [address] Amanda Sahu TropicalisNot detectedMercy Health St. Rita's Medical CenterComment on above:Performed By: #### BCIDSUB #### [facility] [address] [address] [address] Amanda Cansecoformed By: #### VANCT #### [facility] [address] [address] [address] Amanda Pruitt. Cloacae complexNot detectedMercy Health St. Rita's Medical CenterComment on above:Performed By: #### BCIDSUB #### [facility] [address] [address] [address] Amanda Cansecoformed By: #### VANCT #### [facility] [address] [address] [address] Amanda McdermottbacteriaceaeNot detectedMercy Health St. Rita's Medical CenterComment on above:Performed By: #### BCIDSUB #### [facility] [address] [address] [address] Amanda Cansecoformed By: #### VANCT #### [facility] [address] [address] [address] Amanda JoshierococcusNot detectedMercy Health St. Rita's Medical CenterComselect specialty hospital-flint on above:Performed By: #### BCIDSUB #### [facility] [address] [address] [address] Amanda Cansecoformed By: #### VANCT #### [facility] [address] [address] [address] Amanda Plascenciacheria coliNot detectedMercy Health St. Rita's Medical CenterComment on above:Performed By: #### BCIDSUB #### [facility] [address] [address] [address] Amanda Cansecoformed By: #### VANCT #### [facility] [address] [address] [address] Amanda Kilgore. oxytocaNot detectedMercy Health St. Rita's Medical CenterComment on above:Performed By: #### BCIDSUB #### [facility] [address] [address] [address] Amanda Cansecoformed By: #### VANCT #### [facility] [address] [address] [address] Amanda Kilgore. pneumoniaeNot detectedMercy Health St. Rita's Medical CenterComment on above:Performed By: #### BCIDSUB #### [facility] [address] [address] [address] Amanda Cansecoformed By: #### VANCT #### [facility] [address] [address] [address] Amanda PorterC Resistant GeneNot ApplicableMercy Health St. Rita's Medical Center Comment on above:Performed By: #### BCIDSUB #### [facility] [address] [address] [address] Amanda Cansecoformed By: #### VANCT #### [facility] [address] [address] [address] Amanda Olivo. monocytogenesNot detectedMercy Health St. Rita's Medical CenterComment on above:Performed By: #### BCIDSUB #### [facility] [address] [address] [address] Amanda Cansecoformed By: #### VANCT #### [facility] [address] [address] [address] Amanda Garcia Resistant GeneDetectedCritically abnormalThe Uc HealthComment on above:Performed By: #### BCIDSUB #### [facility] [address] [address] [address] Amanda Cansecoformed By: #### VANCT #### [facility] [address] [address] [address] Amanda CottrellProteusNot detectedMercy Health St. Rita's Medical CenterComment on above: Performed By: #### BCIDSUB #### [facility] [address] [address] [address] Amanda Cansecoformed By: #### VANCT #### [facility] [address] [address] [address] Amanda Maguire. aeruginosaNot detectedNormalThe Jus HospitalComment on above:Performed By: #### BCIDSUB #### [facility] [address] [address] [address] Amanda Cansecoformed By: #### VANCT #### [facility] [address] [address] [address] Amanda Kowalski marcgoodcensNot Wayne HospitalComment on above:Performed By: #### BCIDSUB #### [facility] [address] [address] [address] Amanda Cansecoformed By: #### VANCT #### [facility] [address] [address] [address] Amanda Ingram:LEFT [facility] HospitalComment on above: Performed By: #### BCIDSUB #### [facility] [address] [address] [address] Amanda Ingram:L WRISTNoMercy Health St. Rita's Medical Center HospitalComment on above:Performed By: #### BCIDSUB #### [facility] [address] [address] [address] Amanda Cansecoformed By: #### VANCT #### [facility] [address] [address] [address] Amanda Ingram:L [facility] Hospital - DublinComment on above:Performed By: #### BCIDSUB #### [facility] [address] [address] [address] Amanda Alcaraz. aureusDetectedAvita Health System Galion Hospitaltically [facility] Comment on above:Performed By: #### BCIDSUB #### [facility] [address] [address] [address] Amanda Cansecoformed By: #### VANCT #### [facility] [address] [address] [address] Amanda ChowdhuryaphylococcusDetectedAvita Health System Galion Hospitaltically [facility] Comment on above:Performed By: #### BCIDSUB #### [facility] [address] [address] [address] Amanda Cansecoformed By: #### VANCT #### [facility] [address] [address] [address] Amanda Miller. agalactiaeNot detectedMercy Health St. Rita's Medical CenterComment on above:Performed By: #### BCIDSUB #### [facility] [address] [address] [address] Amanda Cansecoformed By: #### VANCT #### [facility] [address] [address] [address] Amanda Miller. pneumoniaeNot detectedMercy Health St. Rita's Medical CenterComment on above:Performed By: #### BCIDSUB #### [facility] [address] [address] [address] Amanda Cansecoformed By: #### VANCT #### [facility] [address] [address] [address] Amanda Miller. pyogenesNot detectedMercy Health St. Rita's Medical CenterComment on above:Performed By: #### BCIDSUB #### [facility] [address] [address] [address] Amanda Cansecoformed By: #### VANCT #### [facility] [address] [address] Dr. Amanda MillertococcusNot detectedMercy Health St. Rita's Medical CenterComment on above:Performed By: #### BCIDSUB #### [facility] [address] [address] [address] Amanda Cansecoformed By: #### VANCT #### [facility] [address] [address] [address] Amanda Lee/Esdras Resist. GeneNot ApplicableMercy Health St. [facility]'s Medical Center Comment on above:Performed By: #### BCIDSUB #### [facility] [address] [address] [address] Amanda Cansecoformed By: #### VANCT #### [facility] [address] [address] [address] Amanda Bolton AUTO DIFFon [id number] #0.0 103/ulNormal0.0-0.1The Uc HealthComment on above:Performed By: #### CBC #### [facility] [address] [place] [address] Dr. Amanda CottrellBasophils/100 WBC (Bld)0.2 %Normal0.2-2.0[facility] Comment on above:Performed By: #### CBC #### [facility] [address] [place] [address] Dr. Amanda Parker #0.0 103/ulNormal0.0-0.7The [facility]c HealthComment on above: Performed By: #### CBC #### [facility] [address] [place] [address] Dr. Amanda Pruittosinophils/100 WBC (Bld)0.1 %Critically low0.9-7.0The [facility]c HealthComment on above:Performed By: #### CBC #### [facility] [address] [place] [address] Dr. Amanda Pruittrythrocyte distribution width (RBC) [Ratio]14.2 %Ebiwpu82.0-15.0 [facility] HospitalComment on above:Performed By: #### CBC #### [facility] [address] [place] [address] Dr. Amanda CottrellHematocrit (Bld) [Volume fraction]34.2 %Critically low42.0-54.0 The Uc HealthComment on above:Performed By: #### CBC #### [facility] [address] [place] [address] Dr. Amanda CottrellHemoglobin (Bld) [Mass/Vol]11.9 g/dLCritically low14.0-18.0The [facility]c HealthComment on above:Performed By: #### CBC #### [facility] [address] [place] [address] Dr. Amanda Beal #0.15 10e3/ulCritically high0.00-0.03The [facility] Comment on above:Performed By: #### CBC #### [facility] [address] [address] [address] Amanda Beal %1.2 %Critically high0.0-0.5The [facility]c HealthComment on above:Performed By: #### CBC #### [facility] [address] [address] [address] Amanda Jhaveri #0.6 103/ulCritically low1.2-3.8ThThe [facility] Comment on above:Performed By: #### CBC #### [facility] [address] [address] [address] Amanda Lrhocytes/100 WBC (Bld)4.5 %Critically low20.5-60.0The [facility]c HealthComment on above:Performed By: #### CBC #### [facility] [address] [place] [address] Dr. Amanda BowdenUAL DIFF REQNONormalThe Uc HealthComment on above: Performed By: #### CBC #### [facility] [address] [place] [address] Dr. Amanda Lynne (RBC) [Entitic mass]28.1 cvUcaxxv07.9-34.0The [facility]c HealthComment on above:Performed By: #### CBC #### [facility] [address] [place] [address] Dr. Amanda Lynne (RBC) [Mass/Vol]34.8 g/zSVirbzh49.9-35.2The [facility]c HealthComment on above:Performed By: #### CBC #### [facility] [address] [place] [address] Dr. Amanda Lynne (RBC) [Entitic vol]80.9 jKUxgssc46.0-94.0The [facility]c HealthComment on above:Performed By: #### CBC #### [facility] [address] [place] [address] Dr. Amanda Witt #0.9 103/ulCritically high0.3-0.8The [facility] Comment on above:Performed By: #### CBC #### [facility] [address] [address] [address] Amanda Wareocytes/100 WBC (Bld)6.8 %Normal1.7-12.0[facility] Comment on above:Performed By: #### CBC #### [facility] [address] [address] [address] Amanda ErnstUT #11.0 103/ulCritically high1.4-6.5The [facility] Comment on above:Performed By: #### CBC #### [facility] [address] [place] [address] Dr. Amanda Ernstutrophils/100 WBC (Bld)87.2 %Critically high43.0-75.0The [facility]c HealthComment on above:Performed By: #### CBC #### [facility] [address] [place] [address] Dr. Amanda CottrellPlatelet mean volume (Bld) [Entitic vol]10.6 fLNormal9.5-13.5The [facility]c HealthComment on above:Performed By: #### CBC #### [facility] [address] [place] [address] Dr. Amanda CottrellPLT144 103/ulCritically css202-300Zei Uc HealthComment on above:Performed By: #### CBC #### [facility] [address] [place] [address] Dr. Amanda CottrellRBC4.23 106/ulCritically low4.70-6.10The [facility]c HealthComment on above:Performed By: #### CBC #### [facility] [address] [place] [address] Dr. Amanda CottrellWBC12.6 103/ulCritically high4.0-11.0The [facility]c HealthComment on above:Performed By: #### CBC #### [facility] [address] [place] [address] Dr. Amanda CottrellCT CHEST WO CONon 01-13-4121LC CHEST WO CONEXAMINATION: CT CHEST WO CON HISTORY: Acute chest pain. Abnormal [...] authenticated by: JOSE RAFAEL ALONSO Date: 2021-12-11 18:07[facility] Medical CenterCULTJASPER GENERAL [facility] BLOODon [id number] examination of blood, cultureSpecimen Comments: LEFT HAND Culture Observations: S.aureus in aerobic and anaerobic bottles.See#[id number] for ASTs. Isolate 1 Staphylococcus aureus Growth Summa HealthComment on above:Performed By: #### RAJESH #### [facility] [address] [place] [address] Dr. Amanda Ballesteros STOOLon [id number] STOOLCulture Observations: NO GROWTH SALMONELLA, SHIGELLA, YERSINIA, CAMPY, E.COLI 0157, OR STAPH AT 72 HRS NormalAultman Alliance Community HospitalComment on above:Performed By: #### CBCMACY #### [facility] [address] [place], [place] [address] Dr. Amanda CottrellCovid-19 PCR (CVDCURAHEALTH - [facility])on [id number]-CoV-2 (COVID-19) RNA CHARO+probe Ql (Unsp spec)Not detectedNormalNOT DETECTEDAultman Alliance Community Hospital Comment on above:Result Comment: This test is not yet approved or cleared by the [place] FDA. When there are no FDA-approved or cleared tests available, and other criteria are met, FDA can make tests available under an emergency access mechanism called an Emergency Use Authorization (EUA). The EUA for this test is supported by the Sulfuric Acid Plant Supervisor of Health and Human Service's (HHS's) declaration that circumstances exist to justify the emergency use of in vitro diagnostics for the detection and/or diagnosis of the virus that causes COVID- 19. This EUA will remain in effect (meaning [...] of clinical signs and symptoms consistent with SARS-CoV-2.Performed By: #### CBCMAN #### [facility] [address] [place] [address] Dr. Amanda CottrellDRUG SCREEN RAPID (URINE)on [id number]ZYA [facility] HospitalComment on above:Performed By: #### DRUGRPD #### [facility] [address] [place] [address] Dr. Amanda CottrellBARNegativeNormalNEGATIVEAultman Alliance Community HospitalComment on above: Performed By: #### DRUGRPD #### [facility] [address] [place] [address] Dr. Amanda CottrellBUPNegativeNormalNEGATIVEAultman Alliance Community HospitalComment on above: Performed By: #### DRUGRPD #### [facility] [address] [place] [address] Dr. Amanda CottrellBZONegativeNormalNEGATIVEAultman Alliance Community HospitalComment on above: Performed By: #### DRUGRPD #### [facility] [address] [place] [address] Dr. Amanda CottrellCOCNegativeNormalNEGATIVEAultman Alliance Community HospitalComment on above: Performed By: #### DRUGRPD #### [facility] [address] [place] [address] Dr. Amanda TalleyKindred Healthcarement on above: Result Comment: AMP (Amphetamine): 500ng/mL, BAR (Barbituates): 200 ng/mL, BZO (Benzodiazepines): 150 ng/mL, BUP (Buprenorphine): 10 ng/mL, CARLINE (Cocaine): 150 ng/mL, mAMP (Methamphetamine): 500 ng/mL, MTD (Methadone): 200 ng/mL, OPI (Opiates): 100 ng/mL, OXY (Oxycodone): 100 ng/mL, PCP (Phencyclidine): 25 ng/mL, PPX (Propoxyphene): 300 ng/mL, THC (Cannabinoids): 50 ng/mL, TCA (Trycyclic Antidepressants): 300 ng/mLPerformed By: #### DRUGRPD #### [facility] [address] [place] [address] Dr. Amanda CottrellDRUG CUT HEADERDRUG CLASS TEST SYSTEM CUT-OFF CONCENTRATIONS ARE FOLLOWS:NormalThe [facility] HealthComselect specialty hospital-flint on above:Performed By: #### DRUGRPD #### [facility] [address] [place] [address] Dr. Amanda CottrellmAMPPositiveAbnormalNEGMercy Health St. [facility] Warren HospitalComselect specialty hospital-flint on above:Performed By: #### DRUGRPD #### [facility] [address] [place] [address] Dr. Amanda CottrellMTDNegativeNormalNEGATIVEAultman Alliance Community HospitalComselect specialty hospital-flint on above: Performed By: #### DRUGRPD #### [facility] [address] [place] [address] Dr. Amanda MenezesINegativeNormalNEGATIVEAultman Alliance Community HospitalComselect specialty hospital-flint on above: Performed By: #### DRUGRPD #### [facility] [address] [place] [address] Dr. Amanda CottrellOXYNegativeNormalNEGATIVEPremier Health [facility] on above: Performed By: #### DRUGRPD #### [facility] [address] [place] [address] Dr. Amanda CottrellPCPNegativeNormalNEGATIVEThe [facility]c HealthComment on above: Performed By: #### DRUGRPD #### [facility] [address] [address] [address] Amanda CottrellPPXNegativeNormalNEGATIVEThe [facility]c HealthComment on above: Performed By: #### DRUGRPD #### [facility] [address] [address] [address] Amanda CottrellTCANegativeNormalNEGATIVEThe [facility] HealthComment on above: Performed By: #### DRUGRPD #### [facility] [address] [address] [address] Amanda CottrellTHCPositiveAbnormalNEGATIVEThe [facility] HealthComment on above: Performed By: #### DRUGRPD #### [facility] [address] [place] [address] Dr. Amanda Mejia PANEL (PCR)on [id number] F 40/41Not detectedNormal NOT DETECTEDThe [facility]c HealthComment on above:Performed By: #### VANCT #### [facility] [address] [place] [address] Dr. Amanda CottrellAstrovirusNot detectedNormalNOT DETECTEDThe [facility] Comment on above:Performed By: #### VANCT #### [facility] [address] [place] [address] Dr. Amanda Harris. Diff toxin A/BNot detectedNormalNOT DETECTEDThe [facility]c HealthComment on above:Performed By: #### VANCT #### [facility] [address] [place] [address] Dr. Amanda StarrpylobacterNot detectedNormalNOT DETECTEDThe [facility] Comment on above:Performed By: #### VANCT #### [facility] [address] [place] [address] Dr. Amanda CottrellCryptosporidiumNot detectedNormalNOT DETECTEDThe [facility]c HealthComment on above:Performed By: #### VANCT #### [facility] [address] [place] [address] DrRhoda Saba. CayetanensisNot detectedNormalNOT DETECTEDThe [facility]c HealthComment on above:Performed By: #### VANCT #### [facility] [address] [address] [address] Amanda Hamm Coli Z897Lmd ApplicableNormalNot ApplicableThe [facility]c HealthComment on above:Performed By: #### VANCT #### [facility] [address] [address] [address] Amanda Hamm histolyticaNot detectedNormalNOT DETECTEDThe [facility] Comment on above:Performed By: #### VANCT #### [facility] [address] [address] [address] Amanda PruittAECNot detectedNormalNOT DETECTEDThe [facility]c HealthComment on above:Performed By: #### VANCT #### [facility] [address] [address] [address] Amanda PruittIECNot detectedNormalNOT DETECTEDThe [facility] HealthComment on above:Performed By: #### VANCT #### [facility] [address] [address] [address] Amanda PruittPECNot detectedNormalNOT DETECTEDThe [facility]c HealthComment on above:Performed By: #### VANCT #### [facility] [address] [address] [address] Amanda PruittTECNmalka detectedNormalNOT DETECTEDThe [facility]c HealthComment on above:Performed By: #### VANCT #### [facility] [address] [address] [address] Amanda Montalvo. LambliaNot detectedNormalNOT DETECTEDThe [facility] Comment on above:Performed By: #### VANCT #### [facility] [address] [address] [address] Amanda Coelho CONTROLSPASSEDMercy Health St. Rita's Medical CenterComment on above:Performed By: #### VANCT #### [facility] [address] [address] [address] Amanda Mcmillan KAMRAN HEADERGI PANEL BACTERIAMercy Health St. [facility]'s [facility] Comment on above:Performed By: #### VANCT #### [facility] [address] [address] [address] Amanda Graham ECOLIGI PANEL DIARRHEAGENIC E.COLI / SHIGELLAMercy Health St. Rita's Medical CenterComment on above:Performed By: #### VANCT #### [facility] [address] [address] [address] Amanda Graham INFOSEE BELOWMercy Health St. Rita's Medical CenterComment on above: Result Comment: EAEC- Enteroaggregative E. Coli EPEC- Enteropathogenic E. Coli ETEC- Enterotoxigenic E. Coli lt/st STEC- Shigella-like toxin-producing E. Coli stx1/stx2 EIEC- Shigella/Enteroinvasive E. ColiPerformed By: #### VANCT #### [facility] [address] [address] [address] Amanda Graham PARASITESGI PANEL PARASITESMercy Health St. [facility] Comment on above:Performed By: #### VANCT #### [facility] [address] [address] [address] Amanda Graham VIRUSGI PANEL VIRUSESMercy Health St. Rita's Medical CenterComment on above:Performed By: #### VANCT #### [facility] [address] [address] [address] Amanda Rodrigezrovirus GI/GIINot detectedNormalNOT DETECTEDThe [facility]c HealthComment on above:Performed By: #### VANCT #### [facility] [address] [address] [address] Amanda Rodriguez ShigelloidesNot detectedNormalNOT DETECTEDThe [facility]c HealthComment on above:Performed By: #### VANCT #### [facility] [address] [address] [address] Amanda CottrellRotavirus ANot detectedNormalNOT DETECTEDThe [facility] Comment on above:Performed By: #### VANCT #### [facility] [address] [address] [address] Amanda CottrellSalmonellaNot detectedNormalNOT DETECTEDThe [facility] Comment on above:Performed By: #### VANCT #### [facility] [address] [address] [address] Amanda CottrellSapovirusNot detectedNormalNOT DETECTEDThe [facility] Comment on above:Performed By: #### VANCT #### [facility] [address] [address] [address] Amanda CottrellSTECNot detectedNormalNOT DETECTEDThe [facility] HealthComment on above:Performed By: #### VANCT #### [facility] [address] [address] [address] Amanda BritobrioNot detectedNormalNOT DETECTEDThe [facility]c HealthComment on above:Performed By: #### VANCT #### [facility] [address] [place] [address] Dr. Amanda Holmanio CholeraNot detectedNormalNOT DETECTEDThe [facility] Comment on above:Performed By: #### VANCT #### [facility] [address] [place] [address] Dr. Amanda Bhatt. EnterocoliticaNot detectedNormalNOT DETECTEDThe [facility]c HealthComment on above:Performed By: #### VANCT #### [facility] [address] [place] [address] Dr. Amanda CottrellLACTATE/LACTIC ACIDon [id number] [Moles/Vol]1.0 mmol/L Normal0.7-2.0The [facility]c HealthComment on above:Performed By: #### CBCMAN #### [facility] [address] [place] [address] Dr. Amanda CottrellLIPASEon [id number] [Catalytic activity/Vol]97.0 U/LNormal 23.0-300.0The [facility] HealthComselect specialty hospital-flint on above:Performed By: #### CMP, LIPA #### [facility] [address] [place] [address] Dr. Amanda Allen BLD IMMUNO SCREENon [id number] BLOODPositiveAbnormal NEGATIVEThe Uc HealthComment on above:Performed By: #### CBCMAN #### [facility] [address] [address] [address] Amanda Snow 14(COMP METB)on 98-46-1987Wbkjhfk [Mass/Vol]2.0 g/dL Critically low3.5-5.0The [facility]c HealthComment on above:Performed By: #### CMP, LIPA #### [facility] [address] [address] [address] Amanda CottrellAlbumin/Globulin [Mass ratio]0.5 {ratio}NormalThe [facility]c HealthComment on above:Performed By: #### CMP, LIPA #### [facility] [address] [place] [address] Dr. Amanda Rendon [Catalytic activity/Vol]91 U/MAqkrlf14-839Wcm [facility]c HealthComment on above:Performed By: #### CMP, LIPA #### [facility] [address] [address] [address] Amanda Lew [Catalytic activity/Vol]36 U/RVzxbwh90-43Hvm [facility]c HealthComment on above:Performed By: #### CMP, LIPA #### [facility] [address] [place] [address] Dr. Amanda Valverde gap [Moles/Vol]9.6 mmol/LNormalThe [facility]c HealthComment on above:Performed By: #### CMP, LIPA #### [facility] [address] [place] [address] Dr. Amanda Penn [Catalytic activity/Vol]22 U/JObnjzp69-58Tmc [facility] HealthComment on above:Performed By: #### CMP, LIPA #### [facility] [address] [place] [address] Dr. Amanda CottrellBilirubin [Mass/Vol]0.8 mg/dLNormal0.2-1.3The [facility] Comment on above:Performed By: #### CMP, LIPA #### [facility] [address] [place] [address] Dr. Amanda CottrellCalcium [Mass/Vol]7.8 mg/dLCritically low8.4-10.2The [facility]c HealthComment on above:Performed By: #### CMP, LIPA #### [facility] [address] [address] [address] Amanda CottrellChloride [Moles/Vol]93 mmol/LCritically kqa93-393Sca [facility]c HealthComment on above:Performed By: #### CMP, LIPA #### [facility] [address] [address] [address] Amanda CottrellCO2 [Moles/Vol]24.4 mmol/UKtfzhd68.0-30.0The [facility] Comment on above:Performed By: #### CMP, LIPA #### [facility] [address] [place] [address] Dr. Amanda CottrellCreatinine [Mass/Vol]0.71 mg/dLNormal0.66-1.25The [facility] HealthComment on above:Performed By: #### CMP, LIPA #### [facility] [address] [place] [address] Dr. Amanda PruittGFR-AF OMANI>60Normal>=60The [facility] HealthComment on above:Performed By: #### CMP, LIPA #### [facility] [address] [place] [address] Dr. Amanda Wheeler-NON AF OMANI>60Normal>=60The [facility]c HealthComment on above:Performed By: #### CMP, LIPA #### [facility] [address] [place] [address] Dr. Amanda CottrellGlobulin (S) [Mass/Vol]4.3 g/dLNormalThe [facility]c HealthComment on above:Performed By: #### CMP, LIPA #### [facility] [address] [place] [address] Dr. Amanda CottrellGlucose [Mass/Vol]122 mg/dLCritically cjra15-251Atp [facility]c HealthComment on above:Performed By: #### CMP, LIPA #### [facility] [address] [place], [place] [address] Dr. Amanda CottrellPotassium [Moles/Vol]2.9 mmol/LCritically low3.4-5.0The [facility]c HealthComment on above:Performed By: #### CMP, LIPA #### [facility] [address] [place] [address] Dr. Amanda CottrellProtein [Mass/Vol]6.3 g/dLNormal6.1-8.2The [facility] Comment on above:Performed By: #### CMP, LIPA #### [facility] [address] [place] [address] Dr. Amanda CottrellSodium [Moles/Vol]122 mmol/LCritically nia525-556Dwn [facility]c HealthComment on above:Performed By: #### CMP, LIPA #### [facility] [address] [place] [address] Dr. Amanda CottrellUrea nitrogen [Mass/Vol]11.0 mg/dLNormal9.0-20.0The [facility]c HealthComment on above:Performed By: #### CMP, LIPA #### [facility] [address] [place] [address] Dr. Amanda CottrellUrea nitrogen/Creatinine [Mass ratio]15.0 mg/mgNormalThe [facility]c HealthComment on above:Performed By: #### CMP, LIPA #### [facility] [address] [place] [address] Dr. Amanda CottrellXR ABD FLAT UP_PA Cesario [id number] ABD FLAT UP_PA CHEXAM: XR ABD FLAT UP_PA CH HISTORY: MUSCLE [...] Electronically authenticated by: SAMUEL GREENE Date: 2021-12-11 17:09[facility] Medical CenterBasic Metab w/rfx MGon 10-23-2021(cont.)NormalAcmc Healthcare System GlenbeighComment on above:Result Comment: Average GFR for 30-39 years old: 107 mL/min/1.73sq m Chronic Kidney Disease: <60 mL/min/1.73sq m Kidney failure: <15 mL/min/1.73sq m eGFR calculated using average adult body mass. Additional eGFR calculator available at: http://www.G3/multiple_crcl_2012.htmPerformed By: #### CP, CDP #### [address] [place] [address] [employer]: Joelle Parker MDAnion gap [Moles/Vol]11 mmol/LNormal9-17[facility] System GlenbeighComment on above:Performed By: #### CP, CDP #### [address] [place] [address] [employer] Engineer: Joelle Parker MDBUN/CRE Fetyk08Nyvlch2-79Ufryx [facility] Comment on above:Performed By: #### CP, CDP #### [address] [place] [address] [employer] Engineer: Joelle Parker MDCalcium [Mass/Vol]9.5 mg/dLNormal8.6-10.4[facility] System GlenbeighComment on above:Performed By: #### CP, CDP #### [address] [place] [address] [employer] Engineer: Joelle Parker MDChloride [Moles/Vol]100 mmol/YOvrefy29-641MgimcAcmc Healthcare System GlenbeighComment on above:Performed By: #### CP, CDP #### [address] [place], [place] [id number] [employer] Engineer: Joelle Parker MDCO2 [Moles/Vol]26 mmol/RFdcisc35-82Yoqup [facility] HospitalComment on above:Performed By: #### CP, CDP #### [address] [place], [place] [id number] [employer] Engineer: MALA Aggarwalreatinine [Mass/Vol]0.95 mg/dLNormal0.70-1.20 [facility] HospitalComment on above:Performed By: #### CP, CDP #### [address] [place], [place] [id number] [employer] Engineer: BIGG Aggarwal, Amer>60Normal>60[facility] Comment on above:Performed By: #### CP, CDP #### [address] [place], [place] [id number] [employer] Engineer: BIGG Aggarwal,non Amer>60Normal>60[facility] HospitalComment on above:Performed By: #### CP, CDP #### [address] [place], [place] [id number] [employer] Engineer: Joelle Parker MDGlucose [Mass/Vol]92 mg/vWJfllpv30-11Nszti [facility] HospitalComment on above:Performed By: #### CP, CDP #### [address] [place] [address] [employer] Engineer: Joelle Parker MDPotassium [Moles/Vol]3.7 mmol/LNormal3.7-5.3M[facility] hospitaly [facility] HospitalComment on above:Performed By: #### CP, CDP #### [address] [place], [place] [id number] [employer] Engineer: Joelle Parker MDSodium [Moles/Vol]137 mmol/UUvdbxt638-807Ybjaw [facility] HospitalComment on above:Performed By: #### CP, CDP #### [address] [place] [id number] [employer] Engineer: QUINCY Aggarwaltaging:Wood County HospitalComment on above:Result Comment: Stage 1: Some kidney damage normal GFR Stage 2: Mild kidney damage GFR 60-89 Stage 3: Moderate kidney damage GFR 30-59 Stage 4: Severe kidney damage GFR 15-29 Stage 5: Severe kidney damage GFR <15 ESRD - chronic treatment by dialysis or transplantPerformed By: #### CP, CDP #### [address] [place] [address] [employer] Engineer: John Aggarwal nitrogen [Mass/Vol]15 mg/dLNormal6-20[facility] System GlenbeighComment on above:Performed By: #### CP, CDP #### [address] [place], [place] [address] [employer] Engineer: MALA Aggarwal with Diffon 49-57-7189Wyz. Basophil0.05 k/uL Normal0.00-0.20A[facility] System GlenbeighComment on above:Performed By: #### CP, CDP #### [address] [place] [address] [employer] Engineer: Rhea Aggarwal.Imm.Granulocyte<0.07Zuchpq4.00-0.30[facility] System GlenbeighComment on above:Performed By: #### CP, CDP #### [address] [place], [place] [id number] [employer] Engineer: Rhea Aggarwal.Neutrophil (Seg)4.12 k/uLNormal1.50-8.10[facility] GlenbeighComment on above:Performed By: #### CP, CDP #### [address] [place], [facility] [employer] Engineer: Joelle Parker MDBasophils/100 WBC (Bld)1 %Normal0-2[facility] HospitalComment on above:Performed By: #### CP, CDP #### [address] [place] [address] [employer] Engineer: Joelle Parker MDEosinophils (Bld) [#/Vol]0.74 10*3/uLHigh0.00-0.44 [facility] System GlenbeighComment on above:Performed By: #### CP, CDP #### [address] [place] [address] [employer] Engineer: Joelle Parker MDEosinophils/100 WBC (Bld)10 %High1-4[facility] System GlenbeighComment on above:Performed By: #### CP, CDP #### [address] [place], [place] [address] [employer] Engineer: Joelle Parker MDErythrocyte distribution width (RBC) [Ratio]13.8 % Xlcnkx83.8-14.4A[facility] System GlenbeighComment on above:Performed By: #### NARESH, CDP #### [address] [place] [address] [employer]one Software Development Engineer: Joelle Parker MDHematocrit (Bld) [Volume fraction]41.9 %Normal 40.7-50.3Mercy Middlesex HospitalComment on above:Performed By: #### CP, CDP #### [address] [place], [place] [address] [employer]one Software Development Engineer: Joelle Parker MDHemoglobin (Bld) [Mass/Vol]13.6 g/dLNormal 13.0-17.0[facility] HospitalComment on above:Performed By: #### CP, CDP #### [address] [place], [facility]83 [employer] Software Development Engineer: Joelle Parker MDImmature granulocytes/100 WBC (Bld)0 %Hzmhak2CsawcAcmc Healthcare System GlenbeighComment on above:Performed By: #### CP, CDP #### [address] [place], [place] [id number] [employer]one Software Development Engineer: Joelle Parker MDLymphocytes (Bld) [#/Vol]1.50 10*3/uLNormal 1.10-3.70[facility] System GlenbeighComment on above:Performed By: #### CP, CDP #### [address] [place] [address] [employer]one Software Development Engineer: Joelle Parker MDLymphocytes/100 WBC (Bld)21 %Ssk48-88XadlrAcmc Healthcare System GlenbeighComment on above:Performed By: #### CP, CDP #### [address] [place], [facility]83 [employer] Software Development Engineer: NIKA AggarwalCH (RBC) [Entitic mass]28.6 lcYravxg60.2-33.5 [facility] HospitalComment on above:Performed By: #### CP, CDP #### [address] [place], [place] [address] [employer]one Software Development Engineer: NIKA AggarwalCHC (RBC) [Mass/Vol]32.5 g/iDIgrdgn74.4-34.8[facility] System GlenbeighComment on above:Performed By: #### CP, CDP #### [address] [place], [place] [address] [employer] Software Development Engineer: NIKA AggarwalCV (RBC) [Entitic vol]88.2 nZGtepjj19.6-102.9 [facility] HospitalComment on above:Performed By: #### CP, CDP #### [address] [place] [address] [employer]one Software Development Engineer: NIKA Aggarwalonocytes (Bld) [#/Vol]0.68 10*3/uLNormal0.10-1.20 [facility] GlenbeighComment on above:Performed By: #### CP, CDP #### [facility] [address] [place] [address] [place] [address] Drone Software Development Engineer: NIKA Aggarwalonocytes/100 WBC (Bld)10 %Normal3-12[facility] System GlenbeighComment on above:Performed By: #### CP, CDP #### [address] [place] [address] [employer]one Software Development Engineer: Joelle Parker MDNeutrophil (Seg)58 %Wmdxow70-18[facility]iffin HospitalComment on above:Performed By: #### CP, CDP #### [address] [place] [address] [employer]one Software Development Engineer: Joelle Parker MDNRBC Automated0.0 per 100 WBCNormal0.0[facility] HospitalComment on above:Performed By: #### CP, CDP #### [address] [place] [address] [employer]one Software Development Engineer: Bartolome Aggarwaltepankaj mean volume (Bld) [Entitic vol]9.1 fL Normal8.1-13.5[facility] System GlenbeighComment on above:Performed By: #### CP, CDP #### [address] [place] [address] Drone Software Development Engineer: LAVERNE Aggarwallatelets (Bld) [#/Vol]214 10*3/iXEfnvmi552-116 [facility] GlenbeighComment on above:Performed By: #### CP, CDP #### [address] [place] [address] [employer]one Software Development Engineer: Joelle Parker MDRBC (Bld) [#/Vol]4.75 10*6/uLNormal4.21-5.77[facility] HospitalComment on above:Performed By: #### CP, CDP #### [facility] [address] [place] [address] [place] [address] [employer]one Software Development Engineer: CARLEY Aggarwal (Bld) [#/Vol]7.1 10*3/uLNormal3.5-11.3[facility] Westernport HospitalComment on above:Performed By: #### CP, CDP #### [facility] [address] [place] [address] [place] [address] Drone Software Development Engineer: Jen Aggarwal Diff PerformedNOT REPORTEDNormalMercy Westernport HospitalComment on above:Performed By: #### CP, CDP #### [address] [place] [address] Drone Software Development Engineer: Sushma Aggarwal CommentNOT REPORTEDNormalMercy Westernport HospitalComment on above:Performed By: #### CP, CDP #### [address] [place] [address] Drone Software Development Engineer: LESLIE Aggarwal morphology finding Nom (Bld)NOT REPORTEDNormal [facility] HospitalComment on above:Performed By: #### CP, CDP #### [address] [place] [address] Drone Software Development Engineer: CARLEY Aggarwal MorphologyNOT REPORTEDNormalMercy Westernport HospitalComment on above:Performed By: #### CP, CDP #### [facility] [address] [place] [address] [place] [address] Drone Software Development Engineer: Joelle Parker MDEthanol Alcoholon 15-14-1793Zovlljf [Mass/Vol] mg/dLNormal<10[facility] HospitalComment on above:Performed By: #### ALCB #### [address] [place] [address] Drone Software Development Engineer: Joelle Parker MDEthanol percent<0.010Normal<0.010[facility] System GlenbeighComment on above:Performed By: #### ALCB #### [facility] [address] [place] [address] Dr[address] [place], [place] [address] Drone Software Development Engineer: Donald Aggarwal [id number], High Sens<6Normal 0-22MerYale New Haven Children's HospitalComment on above:Result Comment: High Sensitivity Troponin values cannot be compared with other Troponin methodologies. Patients with high levels of Biotin oral intake (i.e >5mg/day) may have falsely decreased Troponin levels. Samples collected within 8 hours of biotin intake may require additional information for diagnosis.Performed By: #### CP, CDP #### [address] [place], [place] [address] Drone Software Development Engineer: Joseph Aggarwal Interxochitl.NOT REPORTEDNormalAcmc Healthcare System GlenbeighComment on above:Performed By: #### CP, CDP #### [address] [place] [address] Drone Software Development Engineer: Joseph Aggarwal TNOT REPORTEDNormal<0.03[facility] System GlenbeighComment on above:Performed By: #### CP, CDP #### [address] [place] [address] Drone Software Development Engineer: MT Aggarwal CHEST PORTABLEon [id number] CHEST PORTABLE EXAMINATION: ONE XRAY VIEW OF [...] Signed by: Addy Gates MD 10/23/21 Final resultNormalMerYale New Haven Children's HospitalBasic Metabolic Panel w/ Reflex to MG Ordered By: Yareli Jonas on 24-71-5565Dwtmz gap [Moles/Vol]11 mmol/L9 - 17 mmol/LMercy [employer]agin[employer] Work Phone: calcium [Mass/Vol]9.5 mg/dL8.6 - 10.4 mg/dLAvita Health System Ontario HospitalIQzone Phone: chloride [Moles/Vol]104 mmol/L98 - 107 mmol/LMercy [employer] Work Phone: cO2 [Moles/Vol]27 mmol/L20 - 31 mmol/LMWantstery [employer] Work Phone: creatinine [Mass/Vol]0.9 mg/dL0.70 - 1.20 mg/dLAvita Health System Ontario HospitalIQzone Phone: GFR >60>60 mL/minAvita Health System Ontario HospitalIQzone Phone: GFR Non->60>60 mL/minAvita Health System Ontario HospitalIQzone Phone: Glucose [Mass/Vol]91 mg/dL70 - 99 mg/dLAvita Health System Ontario HospitalIQzone Phone: potassium [Moles/Vol]3.8 mmol/L3.7 - 5.3 mmol/LMWantstery [employer] Work Phone: sodium [Moles/Vol]142 mmol/L135 - 144 mmol/LMlutheran hospitalFoundshopping.com Work Phone: Urea nitrogen (BldV) [Mass/Vol]15 mg/dL6 - 20 mg/dL [facility] BeachwoodAudioms Phone: Urea nitrogen/Creatinine (Bld) [Mass ratio]17[facility] HospitalIQzone Phone: brain Natriuretic PeptideOrdered By: Yareli Jonas on 05-86-2814AKZ InterpretationPro-BNP Reference Range:[employer] Phone: comment on above: Rule Out: <300 Juares Zone: Age <50 300-450 Age 50-75 300-900 Age >75 300-1800 Usually represents mild to moderate HF but other cardiopulmonary causes cannot be ruled out. Rule In: Age <50 >450 Age 50-75 >900 Age >75 >1800 Natriuretic peptide B (Bld) [Mass/Vol]34 pg/mL<300[facility] HospitalIQzone Phone: comment on above:Pro-BNP results cannot be compared to BNP results.[employer] Phone: cBC Auto DifferentialOrdered By: Yareli Jonas on 88-90-9523Mbdwzotf Eos #0.17[facility] HospitalIQzone Phone: absolute Immature Granulocyte<0.03[facility] HospitalIQzone Phone: absolute Lymph #0.98LowAvita Health System Ontario HospitalIQzone Phone: absolute [place] #0.56[facility] HospitalIQzone Phone: basophils (Bld) [#/Vol]0.03 10*3/uLAvita Health System Ontario HospitalIQzone Phone: basophils/100 WBC (Bld)1 %0 - 2 %t[employer] Phone: differential TypeNOT REPORTEDAvita Health System Ontario HospitalIQzone Phone: eosinophils/100 WBC (Bld)3 %1 - 4 %[employer] Phone: Hematocrit (Bld) [Volume fraction]38.8 %Low40.7 - 50.3 %[employer] Phone: Hemoglobin.gastrointestinal spec 1 Ql (Stl)12.6 g/dL Low13.0 - 17.0 g/dLAvita Health System Ontario HospitalIQzone Phone: Immature granulocytes/100 WBC (Bld)0 %0[facility] HospitalIQzone Phone: Interpretation and review of laboratory results AbnormalAvita Health System Ontario HospitalIQzone Phone: lymphocytes/100 WBC (Bld)17 %Low24 - 43 %tuta.co Phone: MCH (RBC) [Entitic mass]28.8 pg25.2 - 33.5 pgAvita Health System Ontario HospitalrFactr, Inc. Work Phone: MCHC (RBC) [Mass/Vol]32.5 g/dL28.4 - 34.8 g/dLAvita Health System Ontario HospitalrFactr, Inc. Work Phone: [phone] (RBC) [Entitic vol]88.6 fL82.6 - 102.9 fLAvita Health System Ontario HospitalrFactr, Inc. Work Phone: Monocytes/100 WBC (Bld)10 %3 - 12 %[facility], BeachwoodFoundshopping.com Work Phone: NRBC Automated0.00.0 per 100 WBCAvita Health System Ontario HospitalrFactr, Inc. Work Phone: [phone] distribution width (Bld) [Ratio]13.3 %11.8 - 14.4 %tuta.co Phone: Platelet EstimateNOT REPORTEDAvita Health System Ontario HospitalrFactr, Inc. Work Phone: Platelet mean volume (Bld) [Entitic vol]8.7 fL8.1 - 13.5 fLAvita Health System Ontario HospitalrFactr, Inc. Work Phone: [phone] (Bld) [#/Vol]193 10*3/uLOxane Materials Work Phone: RBC (Bld) [#/Vol]4.38 10*6/uL4.21 - 5.77 m/uLAvita Health System Ontario HospitalrFactr, Inc. Work Phone: RBC (Bld) [#/Vol]NOT REPORTEDAvita Health System Ontario HospitalrFactr, Inc. Work Phone: Segmented neutrophils/100 WBC (Bld)69 %High36 - 65 % [facility] BeachwoodFoundshopping.com Work Phone: [phone] Absolute3.91[facility] HospitalrFactr, Inc. Work Phone: [phone] (Bld) [#/Vol]5.7 10*3/uLOxane Materials Work Phone: [phone] (Bld) [#/Vol]NOT REPORTEDtuta.co Phone: [facility] HospitalIQzone Phone: ct CHEST ABDOMEN PELVIS W CONTRASTOrdered By: Yareli Jonas on . No acute visceral or osseous abnormality. 2. No acute infective or inflammatory process. 3. A few bilateral inguinal lymph nodes up to 13 mm in maximal dimension likely reactive. Please correlate with physical exam.tuta.co Phone: eXAMINATION: CT OF THE CHEST, ABDOMEN, AND PELVIS [...] COMPARISON: None HISTORY: ORDERING SYSTEM PROVIDED HISTORY: [facility] lower abdominal pain TECHNOLOGIST PROVIDED HISTORY: [facility] lower abdominal pain Decision Support Exception - unselect if not a suspected or confirmed emergency medical condition->Emergency Medical Condition (MA) FINDINGS: Chest: Mediastinum: Cardiac size normal. Aorta and pulmonary arteries enhance satisfactorily withoutevidence for acute traumatic injury. No aneurysm or dissection. Multiple borderline prominent mediastinal lymph nodes. For example 13 mm AP window lymph node, 15 mm subcarinal lymph node noted along with other smaller nodes. There is 10 mm right paratracheal lymph node. Nonspecific. Probably reactive. Suggest three-month follow-up. Lungs/pleura: No significant nodules or masses. The streaky hazy b andlike pleural-parenchymal densities representing subsegmental atelectasis noted posterior [...] bladder is unremarkable. No suspicious pelvic mass. Peritoneum/Retroperitoneum: No free intraperitoneal fluid. No retroperitoneal or intraperitoneal lymphadenopathy. A few small bilateral inguinal lymph nodes visualized up to 13 mm in maximal dimension likely reactive. Bones/Soft Tissues: No acute abnormality of the bones. The superficial soft tissues show no significant abnormalities.[employer] Work Phone: emikhail, yoseph Incoming Radiant Results From [email or web address] - 05/29/2021 2:41 PM EDT EXAMINATION: CT [...] COMPARISON: None HISTORY: ORDERING SYSTEM PROVIDED HISTORY: [facility] lower abdominal pain TECHNOLOGIST PROVIDED HISTORY: [facility] lower abdominal pain Decision Support Exception - [...] bladder is unremarkable. No suspicious pelvic mass. Peritoneum/Retroperitoneum: No free intraperitoneal fluid. No retroperitoneal or [...] likely reactive. Please correlate with physical exam. [employer] Phone: [employer] Phone: d-Dimer, QuantitativeOrdered By: Yareli Jonas on 86-28-5423W-Dimer, Quant0.70HighAvita Health System Ontario HospitalIQzone Phone: comment on above: When combined with a low [...] distal DVT. Interpretation and review of laboratory resultsAbnormaltuta.co Phone: [facility] HospitalIQzone Phone: Hepatic Function PanelOrdered By: Yareli Jonas on 58-70-3554Wqzuyzl [Mass/Vol]3.7 g/dL3.5 - 5.2 g/dLAvita Health System Ontario HospitalIQzone Phone: albumin/Globulin [Mass ratio]0.9 {ratio}LowAvita Health System Ontario HospitalIQzone Phone: aLP (Bld) [Catalytic activity/Vol]88 U/L40 - 129 U/L [facility], BeachwoodAudioms Phone: aLT [Catalytic activity/Vol]54 U/LHigh5 - 41 U/LMuniversity hospitals health system [employer] Phone: aST [Catalytic activity/Vol]32 U/L<40[facility] HospitalIQzone Phone: bilirubin [Mass/Vol]0.54 mg/dL0.3 - 1.2 mg/dLAvita Health System Ontario HospitalIQzone Phone: bilirubin, IndirectCANNOT BE CALCULATED0.00 - 1.00 mg/dLAvita Health System Ontario HospitalIQzone Phone: bilirubin.indirect [Mass/Vol]mg/dL<0.31 mg/dLAvita Health System Ontario HospitalIQzone Phone: Free PSA/Total PSA [Mass fraction]7.7 g/dL6.4 - 8.3 g/dLAvita Health System Ontario HospitalIQzone Phone: GlobulinNOT REPORTED1.5 - 3.8 g/dLAvita Health System Ontario HospitalIQzone Phone: Interpretation and review of laboratory results AbnormalAvita Health System Ontario HospitalIQzone Phone: laboratory - Chemistry and Chemistry - challenge Ordered By: Yareli Jonas on 21-29-1131IJE/1.73 sq M.predicted MDRD (S/P/Bld) [Vol rate/Area][facility] BeachwoodAudioms Phone: comment on above:Average GFR for 30-39 years old: 107 mL/min/1.73sq m Chronic Kidney Disease: <60 mL/min/1.73sq m Kidney failure: <15 mL/min/1.73sq m eGFR calculated using average adult body mass. Additional eGFR calculator available at: http://www.G3/multiple_crcl_2011.htm Stage 1: Some kidney damage normal GFR Stage 2: Mild kidney damage GFR 60-89 Stage 3: Moderate kidney damage GFR 30-59 Stage 4: Severe kidney damage GFR 15-29 Stage 5: Severe kidney damage GFR <15 ESRD - chronic treatment by dialysis or transplant LipaseOrdered By: Yareli Jonas on 84-28-8607Kywveb [Catalytic activity/Vol]13 U/L13 - 60 U/LM2[employer] Work Phone: no Panel InformationOrdered By: Yareli Jonas on 75-65-9093Yr acute intracranial abnormality. No acute fracture dislocation involving cervical spine.tuta.co Phone: eXAMINATION: CT OF THE HEAD WITHOUT CONTRAST; CT [...] COMPARISON: None. HISTORY: ORDERING SYSTEM PROVIDED HISTORY: [facility] altered TECHNOLOGIST PROVIDED HISTORY: [facility] altered Decision Support Exception - unselect if not a suspected or confirmed emergency medical condition->Emergency Medical Condition (MA) FINDINGS: BRAIN/VENTRICLES: There is no acute intracranial hemorrhage, mass effect or midline shift. No abnormal extra-axial fluid collection. The gonzalez-white differentiation is maintained without evidence of an acute infarct. There is no evidence of hydrocephalus. ORBITS:The visualized portion of the orbits demonstrate no acute abnormality. SINUSES: Mucosal thickening involving bilateral ethmoid air cells. Remainder of the paranasal sinuses and mastoid air cells clear. SOFT TISSUES/SKULL: No acute abnormality of the visualized skull or soft tissues. CERVICAL SPINE:No cervical spine fracture dislocation. Vertebral body height and alignment within normal limits. Normal cervical spine curvature. No significant degenerative changes. Soft tissues of the neck appeargrossly unremarkable. Lung apices are clear.[employer] Phone: edi, pn Incoming Radiant Results From [facility] - 05/29/2021 2:15 PM EDT EXAMINATION: CT [...] No acute fracture dislocation involving cervical spine. [employer] Phone: [employer] Phone: [facility] HospitalIQzone Phone: [phone]-ZBECmbxxpn By: Yareli Jonas on 99-44-1131ZNR Coag (Bld) [Relative time]1.1 {INR}[employer] Phone: comment on above: Non-therapeutic Range: INR = 0.9-1.2 Therapeutic Range: Moderate Anticoagulant Intensity: INR = 2.0-3.0 High Anticoagulant Intensity: INR = 2.5-3.5 PT Coag (PPP) [Time]13.9 sMercy [employer] Work Phone: [employer] Work Phone: TroponinOrdered By: Yareli Jonas on 05-29-2021 Troponin InterpNOT REPORTEDAvita Health System Ontario HospitalrFactr, Inc. Work Phone: Troponin TNOT REPORTED<0.03 ng/mLAvita Health System Ontario HospitalrFactr, Inc. Work Phone: Troponin, High Mcdvtrpcmrf08 ng/L0 - 22 ng/LMercy [employer] Work Phone: comment on above: High Sensitivity Troponin values cannot be compared with other Troponin methodologies. Patients with high levels of Biotin oral intake (i.e >5mg/day) may have falsely decreased Troponin levels. Samples collected within 8 hours of biotin intake may require additional information for diagnosis. [employer] Phone: Urinalysis, reflex to microscopicOrdered By: Yareli Jonas on 40-47-7096Clsqojtvn UrineNegativeNEGATIVEAvita Health System Ontario HospitalrFactr, Inc. Work Phone: color, UAYELLOWYELLOWMerrFactr, Inc. Work Phone: Glucose, UrNegativeNEGATIVEAvita Health System Ontario HospitalrFactr, Inc. Work Phone: Ketones Ql (U)NegativeNEGATIVEAvita Health System Ontario HospitalrFactr, Inc. Work Phone: leukocyte esterase Test strip Ql (U)NegativeNEGATIVE [facility] BeachwoodAudioms Phone: Nitrite, UrineNegativeNEGATIVEAvita Health System Ontario HospitalrFactr, Inc. Work Phone: pH, UA8.0Mer [employer] Work Phone: protein, UANegativeNEGATIVEMerrFactr, Inc. Work Phone: specific Osprey, UA1.010Mer [employer] Work Phone: Turbidity UACLEARCLEARMer [employer] Work Phone: Urinalysis CommentsNOT REPORTEDMercy Health Work Phone: Urine HgbNegativeNEGATIVEMercy Health Work Phone: Urobilinogen, UrineNormalNormalMercy Health Work Phone: [facility] Work Phone: VL DUP LOWER EXTREMITY VENOUS BILATERALOrdered By: Yareli Jonas on 64-57-7935Ueq, [facility] Incoming Cardio Results From [facility] - 05/29/2021 4:05 PM EDT [facility] Vascular Lower Extremities DVT Study Procedure Patient Name COTY Date of Study 05/29/2021 TIP Plata Date of 1980 Gender Male Age 41 year(s) Race Room Number 06 Corporate ID [id number] # Patient Acct [id number] # MR # [id number] Sponge Hooker Erinn Ray RVT Interpreting Physician Mckayla Baltazar MD Referring Referring Physician YARELI OJNAS Nurse Practitioner Additional Comments Results were faxed to ER 05/29/2021 @ [facility]. Procedure Type of Study: Veins: Lower Extremities [...] !Phasic!No ! ! + +------+------+ + !Prox Femoral !Phasic!No ! ! + +------+------+ + !Popliteal !Phasic!No ! ! + +------+------+ + Left Lower Extremities DVT Study Measurements Left 2D Measurements + + + + + !Location !Visualized!Compressibility!Thrombosis! + + + + + !Common Femoral !Yes !Yes !None ! + + + + + !Prox Femoral !Yes !Yes !None ! + + + + + !Mid Femoral !Yes !Yes !None ! + + + +---- (more content not included)...[employer] Work Phone: [facility] [employer] Work Phone: basic Metabolic Panelon 14-29-2957Dczmy gap [Moles/Vol]9 mmol/L9 - 17 mmol/LMercy Health- [place], KYBun/Cre Tjzhq87Qeiyo Health- [place], KYCalcium [Mass/Vol]9.0 mg/dL8.6 - 10.4 mg/dLMercy Health- [place], KYChloride [Moles/Vol]99 mmol/L98 - 107 mmol/LMercy Health- [place], KYCO2 [Moles/Vol]27 mmol/L 20 - 31 mmol/LMercy Health- [place], KYCreatinine [Mass/Vol]0.93 mg/dL0.7 - 1.2 mg/dL [facility]- [place], KYGFR >60>60 mL/minMercy Health- [place], KYGFR Non->60>60 mL/minMercy Health- [place], KYGlucose [Mass/Vol]112 mg/dL High70 - 99 mg/dLAvita Health System Ontario Hospitalcy Health- [place], KYInterpretation and review of laboratory resultsAbnormalMer Health- [place], KYPotassium [Moles/Vol]3.9 mmol/L3.7 - 5.3 mmol/LMercy Health- [place], KYSodium [Moles/Vol]135 mmol/L135 - 144 mmol/LMercy Health- [place], KYUrea nitrogen [Mass/Vol]11 mg/dL6 - 20 mg/dLFirelands Regional Medical [facility]- [place], [place] Blood Gas, Arterialon 93-44-7059Gtzxs TestPASSMer Health- [place], KYaPTT Coag (Bld) [Time]37.0 sMercy Health- [place], KYCarboxyhemoglobinNOT REPORTED0 - 5 %[facility]- [place], XLPOK767Bvktw Health- [place], KYHCO3, Ioxqvxqs91.7 mmol/L22 - 26 mmol/L [facility]- [place], KYMethemoglobinNOT REPORTED0 - 1.9 %[facility]- [place], KYMode NOT REPORTEDMercy Health- [place], KYNegative Base Excess, ArtNOT REPORTED0 - 2 mmol/LMercy Health- [place], KYNOTIFICATIONNOT REPORTEDMercy Health- [place], [place] NOTIFICATION TIMENOT REPORTEDMer Health- [place], KYO2 Device/Flow/%CannulaMer Health- [place], KYComment on above:2Oxygen saturation in Blood97.1 %95 - 98 %[facility]- [place], KYOxyhemoglobinNOT OZPYCSBT07 - 98 %[facility]- [place], KYpCO2, Art, Temp AdjNOT REPORTEDMercy Health- [place], KYpCO2, Iwngqmyn52.5[facility]- [place], [place] Peep/CpapNOT REPORTEDMercy Health- [place], KYpH, Art, Temp AdjNOT REPORTEDMercy Health- [place], KYpH, Arterial7.380[facility]- [place], KYpO2, Art, Temp AdjNOT REPORTEDMercy Health- [place], KYpO2, Tfytvbid47.4[facility]- [place], KYPositive Base Excess, Art0.3 mmol/L0 - 2 mmol/LMercy Health- [place], KYPSVNOT REPORTEDMer Health- [place], KYPt. PositionSUPINEMer Health- [place], KYSample SiteRight Radial ArteryMercy Health- [place], KYSet RateNOT REPORTEDMer Health- [place], KYText for RespiratoryNOT REPORTEDMer Health- [place], KYTotal HbNOT MXWNEBIT02 - 16 g/dlMer Health- [place], KYTotal RateNOT REPORTEDMer Health- [place], KYVTNOT REPORTEDMer Health- [place], KYBrain Natriuretic Peptideon 18-46-2698Rhhqpoojnna peptide B (Bld) [Mass/Vol]Pro-BNP Reference Range:[facility]- [place], [facility] on above: Rule Out: <300 Juares Zone: Age <50 300-450 Age 50-75 300-900 Age >75 300-1800 Usually represents mild to moderate HF but other cardiopulmonary causes cannot be ruled out. Rule In: Age <50 >450 Age 50-75 >900 Age >75 >1800 Natriuretic peptide B (Bld) [Mass/Vol]31 pg/mL<300[facility]- [place], [facility] on above:Pro-BNP results cannot be compared to BNP results.CBC Auto Differentialon 46-82-3051Yiveyoclv (Bld) [#/Vol]0.00 10*3/uLMercy Health- [place], KYBasophils/100 WBC (Bld)0 %0 - 2 %[facility]- [place], KYDifferential TypeNOT REPORTEDFirelands [facility]- [place], KYEosinophils (Bld) [#/Vol]0.09 10*3/uLMercy Health- [place], [place] Eosinophils/100 WBC (Bld)2 %1 - 4 %[facility], JUSErythrocyte distribution width (RBC) [Ratio]14.9 %High11.8 - 14.4 %[facility], JUSHematocrit (Bld) [Volume fraction]37.8 %Low40.7 - 50.3 %[facility], JUSHemoglobin (Bld) [Mass/Vol]12.4 g/dLLow13 - 17 g/dLBrown Memorial Hospital, JUSImmature granulocytes (Bld) [#/Vol]0.00 10*3/uLThe [facility]- [place], KYImmature granulocytes (Bld) [#/Vol] 0 %0[facility], JUSInterpretation and review of laboratory resultsAbnormal [facility], JUSLymphocytes (Bld) [#/Vol]0.61 10*3/uLLowBrown Memorial Hospital, JUS Lymphocytes/100 WBC (Bld)13 %Low24 - 43 %[facility], JUSMCH (RBC) [Entitic mass]28.7 pg25.2 - 33.5 pgBrown Memorial Hospital, JUSMCHC (RBC) [Mass/Vol]32.8 g/dL28.4 - 34.8 g/dLBrown Memorial [facility], JUSMCV (RBC) [Entitic vol]87.5 fL82.6 - 102.9 fL [facility], JUSMonocytes (Bld) [#/Vol]1.03 10*3/[facility], JUS Monocytes/100 WBC (Bld)22 %High3 - 12 %[facility], JUSMorphology Adis (Bld) [Interp]NormalBrown [facility] Hospital, JUSPlatelet mean volume (Bld) [Entitic vol]8.6 fL 8.1 - 13.5 fLBrown [facility] Hospital, KYPlatelets (Bld) [#/Vol]195 10*3/uLBrown Memorial Hospital, KYPlatelets (Bld) [#/Vol]NOT REPORTED[facility], KYRBC (Bld) [#/Vol] 4.32 10*6/uL4.21 - 5.77 m/[facility] morphology finding Nom (Bld) NOT REPORTEDCutler [facility] neutrophils/100 WBC (Bld)63 %36 - 65 % [place], KYSe Absolute2.97[place], KYWBC (Bld) [#/Vol]4.7 10*3/uLRamsay, KYWBC (Bld) [#/Vol]0.0 10*3/uL0.0 per 100 [facility] MorphologyNOT REPORTEDRamsay, KYCOVID-19, PCRon 95-42-3695Ixhgmuczrcgpsf and review of laboratory resultsAbnormalR[place], KYSARS-CoV-2, RapidDETECTEDAbnormalNot DetectedRamsay, KYComment on above: Rapid NAAT: The specimen is [...] this assay. Fact sheet for Healthcare Providers: https://www.fda.gov/media/482017/download Fact sheet for Patients: https://www.fda.gov/media/238885/download Methodology: Isothermal Nucleic Acid Amplification Results reported to the appropriate Health Department Source.NASOPHARYNGEAL SWABRams[place], KYCT CHEST PULMONARY EMBOLISM W CONTRASTon 10-90-9669Ywtdcttydyq (Bld) [#/Vol]No evidence of pulmonary embolism or acute aortic disease. Mild mediastinal lymphadenopathy. Bilateral lower lobe infiltrates/atelectatic changes but no evidence of pleural disease.[place], KYEXAMINATION: CTA OF THE CHEST 12/16/2020 9:16 am [...] 1.4 cm. No evidence of hilar lymphadenopathy. Theheart and pericardium demonstrate no acute abnormality. There is no acute abnormality of the thoracic aorta. Lungs/pleura: There is evidence of bilateral lower lobe infiltrates/atelectatic changes. No active pleural disease. Upper Abdomen: Limited images of the upper abdomen are unremarkable. Soft Tissues/Bones: No acute bone or soft tissue abnormality.[facility]- [place], [place], [facility] Incoming Radiant Results From [employer]/[email or web address] - 12/16/2020 11:32 AM EST EXAMINATION: CTA [...] There is evidence of bilateral lower lobe infiltrates/atelectatic changes. No active pleural disease. Upper Abdomen: Limited images of the upper abdomen are unremarkable. Soft Tissues/Bones: No acute bone or soft tissue abnormality. IMPRESSION: No evidence of pulmonary embolism or acute aortic disease. Mild mediastinal lymphadenopathy. Bilateral lower lobe infiltrates/atelectatic changes but no evidence of pleural disease. [facility] [place], KYDrug screen multi urineon 89-29-3050Noudqhzsxoc Screen, Ur PositiveAbnormalNEGATIVEMercy Health- [place], KYBarbiturate Screen, UrNegative NEGATIVEMercy Health- [place], KYBenzodiazepine Screen, UrineNegativeNEGATIVEMercy Health- [place], KYBuprenorphine UrineNegativeNEGATIVEMercy Health- [place], KYCannabinoid Scrn, UrPositiveAbnormalNEGATIVEMercy Health- [place], KYCocaine Metabolite, Urine PositiveAbnormalNEGATIVEMercy Health- [place], KYInterpretation and review of laboratory resultsAbnormalMercy Health- [place], KYMDMA, UrineNOT REPORTEDNEGATIVE [facility] [place], KYMethadone Screen, UrineNegativeNEGATIVEMercy Health- [place], [place] Methamphetamine, UrinePositiveAbnormalNEGATIVEMercy Health- [place], KYOpiates, Urine PositiveAbnormalNEGATIVEMercy Health- [place], KYOxycodone Screen, UrNegativeNEGATIVE [facility] [place], KYPhencyclidine, UrineNegativeNEGATIVEMercy Health- [place], [place] Propoxyphene, UrineNegativeNEGATIVEMercy Health- [place], KYTest InformationNOT REPORTEDMercy Health- [place], KYTricyclic Antidepressants, UrineNegativeNEGATIVE [facility] [place], KYComment on above:Drug screen results are to be used for medical purposes only. All positive results are unconfirmed. Testing for employment or legal uses should be sent to a reference laboratory for confirmation. Ethanolon 35-92-0349Zzcndxy [Mass/Vol]mg/dL<10 mg/dLMercy Health- [place], KYEthanol percent<0.010<0.010 %[facility]- [place], KYHepatic Function Panelon 12-16-2020 Albumin [Mass/Vol]3.9 g/dL3.5 - 5.2 g/dLMercy Health- [place], KYAlbumin/Globulin [Mass ratio]1.1 {ratio}[facility] [place], KYALP [Catalytic activity/Vol]91 U/L40 - 129 U/LMercy Health- [place], KYALT [Catalytic activity/Vol]52 U/LHigh5 - 41 U/L [facility], JUSAST [Catalytic activity/Vol]39 U/L<40[facility], [place] Bilirubin Ql (U)0.26 mg/dLLow0.3 - 1.2 mg/dLBrown [facility], JUSBilirubin, IndirectCANNOT BE CALCULATED0 - 1 mg/dLBrown [facility], JUSBilirubin.direct [Mass/Vol]mg/dL<0.31 mg/dLBrown [facility], JUSGlobulin (S) [Mass/Vol]NOT REPORTED1.5 - 3.8 g/dLBrown [facility], JUSInterpretation and review of laboratory resultsAbnormalBrown [facility], JUSProtein [Mass/Vol]7.5 g/dL6.4 - 8.3 g/dLBrown [facility], JUSMetabolic Panelon 64-33-2801SFY/1.73 sq M predicted among non-blacks MDRD (S/P/Bld) [Vol rate/Area][place], KYComlittle on above:Average GFR for 30-39 years old: 107 mL/min/1.73sq m Chronic Kidney Disease: <60 mL/min/1.73sq m Kidney failure: <15 mL/min/1.73sq m eGFR calculated using average adult body mass. Additional eGFR calculator available at: http://www.G3/multiple_crcl_2012.htm Stage 1: Some kidney damage normal GFR Stage 2: Mild kidney damage GFR 60-89 Stage 3: Moderate kidney damage GFR 30-59 Stage 4: Severe kidney damage GFR 15-29 Stage 5: Severe kidney damage GFR <15 ESRD - chronic treatment by dialysis or transplant Otheron 70-17-8373DDTN-CoV-2MAshtabula General Hospital, JUSTroponinon 82-83-9388Majpntqs I.cardiac [Mass/Vol]NOT REPORTED[facility], TXAustinnin T.cardiac [Mass/Vol]NOT REPORTED<0.03 ng/mLBrown [facility], JUSAustinoponin, High Sensitivity6 ng/L0 - 22 ng/LMAshtabula General Hospital, JUSComlittle on above: High Sensitivity Troponin values cannot be compared with other Troponin methodologies. Patients with high levels of Biotin oral intake (i.e >5mg/day) may have falsely decreased Troponin levels. Samples collected within 8 hours of biotin intake may require additional information for diagnosis. Troponin I.cardiac [Mass/Vol]NOT REPORTEDBrown Memorial HospitalJUSAngela T.cardiac [Mass/Vol]NOT REPORTED<0.03 ng/mLBrown Memorial HospitalTristan, High Sensitivity6 ng/L0 - 22 ng/LMAshtabula General HospitalJUSComment on above: High Sensitivity Troponin values cannot be compared with other Troponin methodologies. Patients with high levels of Biotin oral intake (i.e >5mg/day) may have falsely decreased Troponin levels. Samples collected within 8 hours of biotin intake may require additional information for diagnosis. XR CHEST PORTABLEon [id number], [facility] Incoming Radiant Results From [employer]/IPPLEXs - 12/16/2020 7:18 AM EST EXAMINATION: ONE [...] viral pneumonia. Pulmonary edema cannot be excluded. [facility] HospitalJUSEXAMINATION: ONE XRAY VIEW OF THE CHEST 12/16/2020 6:50 am COMPARISON: March 16, 2016 HISTORY: ORDERING SYSTEM PROVIDED HISTORY: Cp TECHNOLOGIST PROVIDED HISTORY: Cp Chest pain FINDINGS: Subtle hazy perihilar and bibasilar opacities. Cardiomediastinal within normal limits. Trace left pleural effusion cannot be excluded. No pneumothorax or subdiaphragmatic free air. No acute osseous abnormality identified.[facility] HospitalJUSSubtle multifocal bilateral opacities concerning for developing multifocal or viral pneumonia. Pulmonary edema cannot be excluded.[facility], JUSDischarge Khubcng0ve 38-22-8169Apnkuwprw Mgxbxam7Glcvgkugg Orders: Anticipated Discharge Date: Anticipated Discharge [id number]-Uvf-8223 Anticipated Discharge Time09:25 Activity: activity as tolerated. May shower. Diet: Dietregular Provider FINAL REVIEW of Orders: Final Review: Final Review of Medication Reconciliation and Orders Completedby Physician Reviewing ProviderTimmy Hayward MD at 29-Apr-2020 09:29:52 Appointments: Follow-Up Appointment 01: Physician/Dept/ServicePelayne Guerrero Reason for ReferralCOPD Call to Schedule in2 weeks Phone [phone] Follow-Up Appointment 02: Physician/Dept/LastPCXochitl Call to Schedule in1 week Electronic Signatures: Timmy Hayward) (Signed 29-Apr-2020 09:29) Authored: Discharge Orders, Provider FINAL REVIEW of Orders, Appointments, Gold Form - Pile Header Summary Last Updated: 29-Apr-2020 09:29 by Timmy Hayward)[facility] HospitalHistory and Physical - Critical Careon 91-15-7480Izngmau and Physical - Critical CareService: Critical Care Service: ServiceProgress note. History of [...] Objective: Objective Information: Objective Information T PRBPSpO2 Value36.140929520/6494% Date/Time04/29 13: 13: 13: 13: 13:09 Range(36.8C - 37.8C ) (100 - 106 ) (18 - 18 ) (116 - 132 )/ (57 - 64 ) (94% - 94% ) Highest temp of 37.8 C was recorded at 04/28 19:46 Pain reported at 04/29 7:58: 0 = None ---- Intake and Output ----- Mn/Dy/Year TimeIntakeMount [facility]ut[facility] Apr 29, 2020 2:00 [id number] Apr 29, 2020 6:00 [id number] Apr 28, 2020 10:00 [id number] The Intake and Output Totals for the last 24 hours are: IntakeMount [facility]utney Hospital [id number] Date: Weight/Scale Type: 29-Apr-2020 04:5284.3 kg 28-Apr-2020 [...] Hgb, Arterial 0.6 Deoxy Hgb, Arterial 3.0 De's Test (Collateral Circulation) Yes Arterial Full Panel 27-Apr-2020 08:20:00 ResultValue pH, Arterial 7.37 L pCO2, Arterial 41 pO2, Arterial 95 FIO2 28 SO2, Arterial 97 HCT 49.0 Sodium-Level 137 Potassium-Level 3.8 Chloride-Level 103 Calcium, Ionized-Level 1.21 Glucose-Level 113 H Lactate-Level 1.4 Base Excess-Blood -1.7 Bicarbonate, Calculated, Arterial 23.4 HGB, Calculated 16.5 De's Test (Collateral Circulation) Yes Coronavirus 2019 by [...] Code Problem List: Additional Dx: COPD exacerbation: Signatures/Attestation/Certification: Note Completion: Attending Provider Inpatient Certification StatementI [...] Admit: 27-Apr-2020 Mellisa Mota Electronic Signatures: Saul Gurerero) (Signed 29-Apr-2020 19:14) Authored: Service, History of Present Illness, Comorbidities, Social History, Allergies, Medications Prior to Admission, Review of Systems, Objective, Assessment and Plan, Signatures/Attestation/Certification Last Updated: 29-Apr-2020 19:14 by Saul Guerrero)NormalSCL Health Community Hospital - SouthwestBASIC METABOLIC PANELon 35-42-4143Epizu gap [Moles/Vol]13 mmol/PFpzvym97 - 20[facility] - SouthwestComment on above:Performed By: #### BMP ####[address] [address]Edbxipg [Mass/Vol]9.0 mg/dL Normal8.6 - 10.3[facility] - SouthwestComment on above:Performed By: #### BMP ####[address] [address]Swqjzjlg [Moles/Vol] 105 mmol/RMyowhr87 - 107[facility] - SouthwestComment on above:Performed By: #### BMP ####[address] [address]Bkqkyxshmo [Mass/Vol]0.84 mg/dLNormal0.50 - 1.30S[facility] Hospital - SouthwestComment on above: Performed By: #### BMP ####[address] [address]BUF-GRZBERC AM.>60Normal>60[facility] HospitalComment on above:Result Comment: CALCULATIONS OF ESTIMATED GFR ARE PERFORMED USING THE MDRD STUDY EQUATION FOR THE IDMS-TRACEABLE CREATININE METHODS. CLIN CHEM 2007;53:766-72Performed By: #### BMP ####[address] [address]HMR-EWI AM.>60Normal>60[facility] HospitalComment on above:Performed By: #### BMP ####[address] [address]Xwhhfgh [Mass/Vol]173 mg/rFKmgp42 - 99[facility] - SouthwestComment on above:Performed By: #### BMP ####[address] [address]ZEB0 (Bld) [Moles/Vol]25 mmol/LMmhdnb16 - 32[facility] - SouthwestComment on above:Performed By: #### BMP ####[address] [address]Mdzhbelex [Moles/Vol]4.3 mmol/LNormal3.5 - 5.3[facility] - SouthwestComment on above:Performed By: #### BMP ####[address] [address]Necckc [Moles/Vol]139 mmol/L Jipqjf584 - 145[facility] - SouthwestComment on above:Performed By: #### BMP ####[address] [address]Kjrt nitrogen [Mass/Vol]11 mg/dLNormal6 - 23[facility] - SouthwestComment on above:Performed By: #### BMP ####[address] [address]TISyi 60-83-5425Vkppupsdlfi distribution width (RBC) [Ratio]13.8 %Anfhwa71.5 - 14.5[facility] - SouthwestComment on above:Performed By: #### CBC ####[address] [address]Xiwbyqgcth (Bld) [Volume fraction]41.3 % Runzly39.0 - 52.0[facility] Medical CenterComment on above:Performed By: #### CBC ####[address] [address]Vmzucurnqr (Bld) [Mass/Vol]13.8 g/zUSvkyzl89.5 - 17.5[facility] HospitalComment on above: Performed By: #### CBC ####[address] [address]HFYD (RBC) [Mass/Vol]33.4 g/lCUcfxuh06.0 - 36.0[facility] Comment on above:Performed By: #### CBC ####[address] [address]OGG (RBC) [Entitic vol]91 pAZelimq85 - 100[facility] Cloud HospitalComment on above:Performed By: #### CBC ####[address] [address]Nrvheqnuu (Bld) [#/Vol]239 10*3/eVUserny833 - 450[facility] Cloud HospitalComment on above:Performed By: #### CBC ####[address] [address]OXZ (Bld) [#/Vol]4.52 x10E12/LNormal4.50 - 5.90UH [facility] HospitalComment on above:Performed By: #### CBC ####[address] [address]DLW (Bld) [#/Vol]8.4 10*3/uLNormal4.4 - 11.3[facility] HospitalComment on above:Performed By: #### CBC ####[address] [address]Ayrvrwojq Planning Fuwb9je 55-51-4599Fqnotcypp Planning Ules4Kpzcbpbaq Planning: Anticipated Discharge [id number]-Vkw-6281 Discharge Planning 04/27/2020 patient admit to micu [...] TCC 04/28/20 1245 Social Work Note THE BEHAVIOUR SUPPORT TEACHER HAS BEEN NOTIFIED OF THE PT'S SELF PAY STATUS. THE PT HAS BEEN ASSESSED BY THE [facility] ON 04/27/20. 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 Luann PUENTEW, [facility] 04/28/20 1400 Social Work Note THE BEHAVIOUR SUPPORT TEACHER MET THIS DATE WITH THE PT BEING TREATED IN THE MICU. THE PT STATES THAT HE IS TEMPORARILY RESIDING WITH HIS BOSS AWAITING AN APT ON HIS OWN. THE PT STATED SPEAKING WITH THE [facility] LIAISON ON 04/27/20 AND APPLICATION FOR MEDICAID. THE PT STATES THAT HIS CURRENT ADDRESS IS TEMPORARY WITH A GOAL OF MOVING TO HIS OWN APT. THE PT STATES THAT HE HAS BEEN OUT OF SNF SINCE THE BEGINNING OF THE YEAR AND [...] OWN . THE PT ALSO ACCEPTED THE [facility]. THE BEHAVIOUR SUPPORT TEACHER WILL CONTINUE TO REMAIN AVAILABLE SUPPORTIVELY. Luann BOB, [facility] 04/29/2020 @ 1112 [address] Sander Note: SWer is assissting with D/C plan and Meds to Bed fill. SWer is going to fill scripts through [facility] and bill to the department accordingly. RUKHSANA Villegas BEHAVIOUR SUPPORT TEACHER 04/29/20 As this nurse was reviewing pt's [...] going instructions. CTRN. Assessment: Discharge Planning Assessment [id number] Stated Reason for Admissionsob(1) [place] (1) Lives Withfriend(s)(1) Living Arrangementsnursing home; house(1) Resource/Environmental Concernsnone(1) Anticipated Transition [place](1) Services Anticipated at Transitionnone(1) Nursing Checklist: Lines/Cathetersremoved/appropriate for next level of care Discharge Med Rec Reconciled with eMAElly Patient has Prescriptionsyes DME equipment orderedyes Transportation for Discharge Confirmedyes Discharge Instructions Reviewed WithPatient Discharge Instructions Outcomeverbalize recall/understanding Discharge Documentation: Discharge/Transfer Date/Fxsl98-Ylw-8375 13:13 Discharge Modewheelchair Transportation Methodtransportation service Valuables/Medications/Belongings Returnedyes Final DispositionHome Electronic Signatures: Leilani Valencia (SELF PROPELLED MINING MACHINE OPERATOR) (Signed 28-Apr-2020 11:45) Authored: Discharge Planning Note2 Marjorie Corbin (RN) (Signed 27-Apr-2020 22:37) Authored: Discharge Planning Note2 Stacey Goldman (NELLA) (Signed 29-Apr-2020 11:13) Authored: Discharge Planning Note2 Luann Larkin (NELLA) (Signed 28-Apr-2020 14:09) Authored: Discharge Planning Note2 Ava Kramer (ANSELMO) (Signed 29-Apr-2020 13:14) Authored: Discharge Planning Note2 Last Updated: 29-Apr-2020 13:14 by Ava Kramer (RN) References: 1. Data Referenced From Patient Profile - Adult v2 27-Apr-2020 11:37[facility] HospitalHistory and Physical - Critical Careon 16-49-1232Kingfom and Physical - Critical CareService: Critical Care Service: ServiceMICU History of Present [...] Objective: Objective Information: Objective Information T PRBPSpO2 Value36.155833901/6691% Date/Time04/28 14:006 16: 16: 16: 16:08 Range(36.5C [...] TimeIntakeMount [facility]ney Hospital Apr 28, 2020 2:00 [id number] Apr 28, 2020 6:00 [id number] Apr 27, 2020 10:00 [id number] The Intake and Output Totals for the last 24 hours are: [facility]Out[facility] [id number] Date: Weight/Scale Type: 28-Apr-2020 06:0081.3 kg / [...] BUN / 139 105 11 / Glucose 173 H K+ HCO3- Creat \ 4.3 [...] 239 RDW-CV 13.8 Culture, Blood Trending View [id number]-[id number] 08:33:00 27-Apr-2020 07:49:00 Culture, BloodNEGATIVE TO DATE, CULTURE IN PROGRESS. NEGATIVE TO DATE, CULTURE IN PROGRESS. COOX Panel, Arterial 27-Apr-2020 08:20:00 ResultValue HGB 16.5 Oxy Hgb, Arterial 95.3 CO Hgb, Arterial 1.1 Met Hgb, Arterial 0.6 Deoxy Hgb, Arterial 3.0 De's Test (Collateral Circulation) Yes Arterial Full Panel 27-Apr-2020 08:20:00 ResultValue pH, Arterial 7.37 L pCO2, Arterial 41 pO2, Arterial 95 FIO2 28 SO2, Arterial 97 HCT 49.0 Sodium-Level 137 Potassium-Level 3.8 Chloride-Level 103 Calcium, Ionized-Level 1.21 Glucose-Level 113 H Lactate-Level 1.4 Base Excess-Blood -1.7 Bicarbonate, Calculated, Arterial 23.4 HGB, Calculated 16.5 De's Test (Collateral Circulation) Yes Coronavirus 2019 by [...] withdrawal DTs Code Status: Code StatusFull Code Signatures/Attestation/Certification: Note Completion: Critical Care PatientI have reviewed [...] Review of Systems, Objective, Assessment and Plan, Signatures/Attestation/Certification Last Updated: 28-Apr-2020 17:00 by Saul Guerrero)[facility] HospitalARTERIAL FULL PANELon 76-47-9301RQYW ZXWTEJ-UXBDT-5.7 mmol/LNormal-2.0 - 3.0[facility] Hospital - SouthwestComment on above:Performed By: #### AFPA3 #### [address] [address]POEELJM,IONIZED1.21 mmol/LNormal1.10 - 1.33[facility] - SouthwestComment on above:Performed By: #### AFPA3 #### [address] [address]Cbiroaoe [Moles/Vol]103 mmol/DNsfmhh65 - 107[facility] - SouthwestComment on above:Performed By: #### AFPA3 #### [address] [address]YMJ110 %NormalSCL Health Community Hospital - SouthwestComment on above:Performed By: #### AFPA3 #### [address] [address]Yaoebxy [Mass/Vol]113 mg/uOCahz42 - 99[facility] Comment on above:Performed By: #### AFPA3 #### [address] [address]Fsapyswlve (Bld) [Volume fraction]49.0 %Xmwskv21.0 - 52.0[facility] - SouthwestComment on above:Performed By: #### AFPA3 #### [address] [address]VVE,IICDSNWXOD85.5 g/mUYkrelg81.5 - 17.5[facility] Comment on above:Performed By: #### AFPA3 #### [address] [address]Lskjcof [Moles/Vol]1.4 mmol/LNormal0.4 - 2.0[facility] - SouthwestComment on above:Performed By: #### AFPA3 #### [address] [address]Swcras (Bld) [Partial pressure]95 mm[Hg]Nzxxkc42 - 95[facility] - SouthwestComment on above:Performed By: #### AFPA3 #### [address] [address]UPP215 mzAjMjbkjl67 - 42[facility] - SouthwestComment on above:Performed By: #### AFPA3 #### [address] [address]wV (Bld)7.37 [pH]Low7.38 - 7.42[facility] - SouthwestComment on above:Performed By: #### AFPA3 #### [address] [address]Dflgenphp [Moles/Vol]3.8 mmol/LNormal3.5 - 5.3[facility] - SouthwestComment on above:Performed By: #### AFPA3 #### [address] [address]XST (Bld) [#/Vol]23.4 mmol/RNyiouh93.0 - 26.0[facility] - SouthwestComment on above:Performed By: #### AFPA3 #### [address] [address]PT627 %Nmmhka23 - 100[facility] - SouthwestComment on above: Performed By: #### AFPA3 #### [address] [address]Arojzn [Moles/Vol]137 mmol/QTpxmmg082 - 145[facility] HospitalComment on above:Performed By: #### AFPA3 #### [facility] [address] [place], [place] [address]Puatxhaei Risk Screen - Adulton 87-94-6706Qaighpuom Risk Screen - AdultAllergies: Allergies: penicillin: Unknown Patient Verification: New W [...] risk with low risk for associated injury [place] Safety InterventionsWDL *orient to call system *instruct [...] Communicatenone Learning Preferencesaudio Cultural Considerationsnone Developmental Considerationsnone Taoist Considerationsnone Learning Assessment (Other Learner): Other learner [...] Spiritual Screen: Are there any cultural, spiritual, yazidism practices/values/needs that are important for us to knowno CAGE: Is this an injured patient at a Tra[place] Center [place] [place]/[place]): no Vaccinations: Vaccination - Influenza Vaccination Screen: Is it flu season (between and February 21)No Vaccination - Pneumonia Vaccination Screen: Patient has received a previous pneumonia vaccine:no/unknown... Immunocompetent persons with underlying chronic conditions or reside in snf care facilitiesnone of these conditions Persons with [...] at this time. denies Electronic Signatures: Sowmya Cristobal) (Signed 27-Apr-2020 11:45) Authored: Admission Risk Screens, Vaccinations, Nguyễn, Pressure Injury Last Updated: 27-Apr-2020 11:45 by Sowmya Cristobal (RN) References: 1. Data Referenced From Triage - ED 27-Apr-2020 07:38[facility] Health HospitalBLOOD CULTURE, BACTERIALon 95-69-9004Qrkidwvhbgu [Mass/Vol]PATIENT: TIP ANSARI [facility] [id number] : 84 AGE: SEX: M ORDERED BY: MELLISA MOTA SOURCE: Blood COLLECTED: 04/27/20 08:33 ANTIBIOTICS AT [facility]U.: RECEIVED : 04/27/20 18:00 SITE: R E S U L T S BLOOD CULTURE, BACTERIAL FINAL 05/02/20 19:42 No Growth at 1 days No Growth at 2 days No Growth at 3 days No Growth at 4 days NO GROWTH - FINAL REPORTLifecare Behavioral Health HospitalComment on above:Performed By: #### PTINR #### [address] [address]Bmeiovkpkjg [Mass/Vol]PATIENT: TIP ANSARI LOCATION: MADELAINE BLANCHARD#: [id number] : 84 AGE: SEX: M ORDERED BY: MELLISA MOTA SOURCE: Blood COLLECTED: 04/27/20 07:49 ANTIBIOTICS AT [facility]U.: RECEIVED : 04/27/20 18:00 SITE: R E S U L T S BLOOD CULTURE, BACTERIAL FINAL 05/02/20 19:42 No Growth at 1 days No Growth at 2 days No Growth at 3 days No Growth at 4 days NO GROWTH - FINAL REPORTLifecare Behavioral Health HospitalComment on above:Performed By: #### PTINR #### [address] [address]GFLhk 75-72-5828Ixashoshiwr peptide B (Bld) [Mass/Vol]19 pg/mL Normal0 - 99[facility] - SouthwestComment on above:Result Comment: . <100 pg/mL - Heart failure unlikely 100-299 pg/mL - Intermediate probability of acute heart . failure exacerbation. Correlate with clinical . context and patient history. >=300 pg/mL - Heart Failure likely. Correlate with clinical . context and patient history. BNP testing is performed using different testing methodology at [facility] than at other [facility]. Direct result comparisons should only be made within the same method.Performed By: #### BNP2 #### [address] [address]FCH AND DIFFERENTIALon 04-27-2020% AUTOMATED IMMATURE GRAN0.2 % Normal0.0 - 0.9[facility] - SouthwestComment on above:Result Comment: Immature Granulocyte Count (IG) includes promyelocytes, myelocytes and metamyelocytes but does not include bands. Percent differential counts (%) should be interpreted in the context of the absolute cell counts (cells/L).Performed By: #### CBCDF #### [address] [address] [address]Jdffqsqiw (Bld) [#/Vol]0.06 10*3/uLNormal0.00 - 0.10[facility] HospitalComment on above:Performed By: #### CBCDF #### [address] [address]Xdjtlyqbf/100 WBC (Bld)0.6 %Normal0.0 - 2.0[facility] HospitalComment on above:Performed By: #### CBCDF #### [address] [address]Fayxvulnsui (Bld) [#/Vol]0.87 10*3/uLHigh0.00 - 0.70[facility] HospitalComment on above:Performed By: #### CBCDF #### [address] [address]Sswmmvgxxzx/100 WBC (Bld)8.6 %Normal0.0 - 6.0[facility] HospitalComment on above:Performed By: #### CBCDF #### [address] [address]Pqsxwuzcyxc distribution width (RBC) [Ratio]13.6 %Fcowlo32.5 - 14.5[facility] SouthwestComment on above:Performed By: #### CBCDF #### [address] [address]Qnmfiqwjmk (Bld) [Volume fraction]49.2 %Dctwpk43.0 - 52.0[facility] SouthwestComment on above:Performed By: #### CBCDF #### [address] [address]Vcwmzkxzip (Bld) [Mass/Vol]16.7 g/yUGzvodx63.5 - 17.5[facility] SouthwestComment on above:Performed By: #### CBCDF #### [address] [address]Vhgvoydxqwq (Bld) [#/Vol]2.10 10*3/uLNormal1.20 - 4.80[facility] SouthwestComment on above:Performed By: #### CBCDF #### [address] [address]Usbmnpfpwvb/100 WBC (Bld)20.6 %Ejkdnn17.0 - 44.0[facility] SouthwestComment on above:Performed By: #### CBCDF #### [address] [address]NTYH (RBC) [Mass/Vol]33.9 g/fVUvmdvr93.0 - 36.0[facility] SouthwestComment on above:Performed By: #### CBCDF #### [address] [address]BPD (RBC) [Entitic vol]91 xGSomzen77 - 100[facility] SouthwestComment on above:Performed By: #### CBCDF #### [address] [address]Smfzcspaw (Bld) [#/Vol]0.88 10*3/uLNormal0.10 - 1.00[facility] HospitalComment on above:Performed By: #### CBCDF #### [address] [address]Ztnpsmcqc/100 WBC (Bld)8.7 %Normal2.0 - 10.0[facility] HospitalComment on above:Performed By: #### CBCDF #### [address] [address]Twoithxzira (Bld) [#/Vol]6.24 10*3/uLNormal1.20 - 7.70[facility] HospitalComment on above:Performed By: #### CBCDF #### [address] [address]Ibeyeeccgwq/100 WBC (Bld)61.3 %Otjmgr41.0 - 80.0[facility] HospitalComment on above:Performed By: #### CBCDF #### [address] [address]Fuddxmrdf (Bld) [#/Vol]256 10*3/mFJewvom130 - 450[facility] HospitalComment on above:Performed By: #### CBCDF #### [address] [address]OOF (Bld) [#/Vol]5.41 x10E12/LNormal4.50 - 5.90[facility] HospitalComment on above:Performed By: #### CBCDF #### [address] [address]OBI (Bld) [#/Vol]10.2 10*3/uLNormal4.4 - 11.3[facility] Cloud HospitalComment on above:Performed By: #### CBCDF #### [address] [address]FWURZ 1 VIEWon 10-30-3276KGFOH 1 VIEWMRN: [id number] Patient Name: TIP ANSARI STUDY: CHEST 1 VIEW; 04/27/2020 8:25 am INDICATION: SOB. COMPARISON: None. ACCESSION NUMBER(S): [id number] ORDERING CLINICIAN: MELLISA MOTA FINDINGS: CARDIOMEDIASTINAL SILHOUETTE AND VASCULATURE: Cardiac size: Within normal limits. Aortic shadow: Within normal limits considering portable technique Mediastinal contours: Within normal limits considering portable technique Pulmonary vasculature: Within normal limits without definite congestion LUNGS: Appears to be mild hyperinflation lungs particular at the left upper chest indicating [employer]CH[employer] D. The lungs are clear without discrete infiltrate. ABDOMEN AND OTHER FINDINGS: No remarkable upper abdominal findings. BONES: No acute osseous changes. IMPRESSION: 1. Mild COPD. Electronically signed by: Boby GARCIALutheran Medical Center COMPREHENSIVE PANELon [id number] [Mass/Vol]4.2 g/dLNormal3.4 - 5.0[facility] HospitalComment on above:Performed By: #### CMP #### [address] [address]MEX [Catalytic activity/Vol]65 U/MYxmshg06 - 120[facility] HospitalComment on above:Performed By: #### CMP #### [address] [address]FTG [Catalytic activity/Vol]60 U/LHigh10 - 52[facility] HospitalComment on above:Result Comment: Patients treated with Sulfasalazine may generate falsely decreased results for ALT.Performed By: #### CMP #### [address] [address]Sapmh gap [Moles/Vol]17 mmol/MHpxtqx32 - 20[facility] - SouthwestComment on above:Performed By: #### CMP #### [address] [address]HFD [Catalytic activity/Vol]36 U/LNormal9 - 39[facility] HospitalComment on above:Performed By: #### CMP #### [address] [address]Jkxeyfoxf [Mass/Vol]0.8 mg/dLNormal0.0 - 1.2[facility] HospitalComment on above:Performed By: #### CMP #### [address] [address]Hlqojna [Mass/Vol]9.5 mg/dLNormal8.6 - 10.3[facility] HospitalComment on above:Performed By: #### CMP #### [address] [address]Zwqbnglr [Moles/Vol]102 mmol/LNayhsb54 - 107[facility] HospitalComment on above:Performed By: #### CMP #### [address] [address]Oizkmlglkb [Mass/Vol]0.92 mg/dLNormal0.50 - 1.30[facility] HospitalComment on above:Performed By: #### CMP #### [address] [address]FJP-VDHNOGU AM.>60Normal>60[facility] SouthwestComment on above:Result Comment: CALCULATIONS OF ESTIMATED GFR ARE PERFORMED USING THE MDRD STUDY EQUATION FOR THE IDMS-TRACEABLE CREATININE METHODS. CLIN CHEM 2007;53:766-72Performed By: #### CMP #### [address] [address]HJK-SFQ AM.>60Normal>60[facility] SouthwestComment on above:Performed By: #### CMP #### [address] [address]Hsgwtvn [Mass/Vol]118 mg/hSQyxn92 - 99[facility] Comment on above:Performed By: #### CMP #### [address] [address]STJ7 (Bld) [Moles/Vol]25 mmol/NTnwdrt49 - 32[facility] HospitalComment on above:Performed By: #### CMP #### [address] [address]Ykiphpzjv [Moles/Vol]4.0 mmol/LNormal3.5 - 5.3[facility] HospitalComment on above:Performed By: #### CMP #### [address] [address]Unezhrc [Mass/Vol]7.8 g/dLNormal6.4 - 8.2[facility] SouthwestComment on above:Performed By: #### CMP #### [address] [address]Tnzkfv [Moles/Vol]140 mmol/SGtumfk362 - 145[facility] SouthwestComment on above:Performed By: #### CMP #### [address] [address]Nuzw nitrogen [Mass/Vol]6 mg/dLNormal6 - 23[facility] SouthwestComment on above:Performed By: #### CMP #### [address] [address]XPAN PANEL, ARTERIALon 55-11-0322VYMIG'S TEST[COLLATERAL CIRCULATION]YesNoLutheran Medical CenterComment on above:Performed By: #### COOXA #### [address] [address]Tksfuirdc By: #### AFPA3 #### [address] [address]OTRKK HGB3.0 %Normal0.0 - 5.0[facility] SouthwestComment on above:Performed By: #### COOXA #### [address] [address]Nccshodpgz (Bld) [Mass/Vol]1.1 %NormalSCL Health [facility] Southwest Comment on above:Result Comment: REF VALUES NONSMOKERS 0.5-1.5% SMOKERS 0.5-10.0%Performed By: #### COOXA #### [address] [address]Uegtsggeiv (Bld) [Mass/Vol]16.5 g/mBOobbpd40.5 - 17.5[facility] SouthwestComment on above:Performed By: #### COOXA #### [address] [address]SWE HGB0.6 %Normal0.0 - 1.5[facility] SouthwestComment on above:Performed By: #### COOXA #### [address] [address]UEV HGB95.3 %Cllmbk36.0 - 98.0[facility] SouthwestComment on above:Performed By: #### COOXA #### [address] [address]MMYSLLFJKBX 2019 BY PCRon 09-99-5911HMENADJLILA 2019,PCRNOT DETECTEDNormalNot DetectedSCL Health Community Hospital - SouthwestComment on above:Result Comment: This assay is designed to detect the RdRp gene of SARS-CoV-2 via nucleic acid amplification. A Not Detected result does not preclude COVID-19 infection since the adequacy of sample collection and/or low viral burden may result in presence of viral nucleic acids below the clinical sensitivity of this test method. Fact sheet for providers: www.fda.gov/media/803677/download Fact sheet for patients: www.DreamDry.gov/media/919232/download This test has received FDA Emergency Use Authorization (EUA) and has been verified by [facility] ([facility]). This test is only authorized for the duration of time that circumstances exist to justify the authorization of the emergency use of in vitro diagnostic tests for the detection of SARS-CoV-2 virus and/or diagnosis of COVID-19 infection under section 564(b)(1) of the Act, 21 U.S.C. 360bbb-3(b)(1), unless the authorization is terminated or revoked sooner. [facility] is certified under CLIA-88 as qualified to perform high complexity testing. Testing is performed in the [facility] laboratory located at [address] [place] [address].Performed By: #### COV19 #### [address] [address]Kaj Specimen SourceNasal, NasopharyngealNormalUH [facility] St. Cloud HospitalComment on above:Performed By: #### COV19 #### [address] [address]Rrrkrbs and Physical - Critical Careon 81-77-0189Jgzacqo and Physical - Critical CareService: Critical Care Service: ServiceMICU History of Present [...] Objective: Objective Information: Objective Information T PRBPSpO2 Value36.880932640/8095% Date/Time04/27 7:386 11: 11: 11: 11:35 Range(36.5C [...] BUN / 140 102 6 / Glucose 118 H K+ HCO3- Creat \ 4.0 [...] Blood Gas Results 04/27/2020 08:20 pO295 pH7.37 qKK867 SO297 Base Excess-1.7 Gdwrxdwfdfp69.4 I have reviewed these laboratory results: Culture, Blood Trending View Ciqcnc50-Exa-2139 08:33:00 27-Apr-2020 07:49:00 Culture, BloodNEGATIVE TO DATE, CULTURE IN PROGRESS. NEGATIVE TO DATE, CULTURE IN PROGRESS. COOX Panel, Arterial 27-Apr-2020 08:20:00 ResultValue HGB 16.5 Oxy Hgb, Arterial 95.3 CO Hgb, Arterial 1.1 Met Hgb, Arterial 0.6 Deoxy Hgb, Arterial 3.0 De's Test (Collateral Circulation) Yes Arterial Full Panel 27-Apr-2020 08:20:00 ResultValue pH, Arterial 7.37 L pCO2, Arterial 41 pO2, Arterial 95 FIO2 28 SO2, Arterial 97 HCT 49.0 Sodium-Level 137 Potassium-Level 3.8 Chloride-Level 103 Calcium, Ionized-Level 1.21 Glucose-Level 113 H Lactate-Level 1.4 Base Excess-Blood -1.7 Bicarbonate, Calculated, Arterial 23.4 HGB, Calculated 16.5 De's Test (Collateral Circulation) Yes Coronavirus 2019 by [...] withdrawal DTs Code Status: Code StatusFull Code Signatures/Attestation/Certification: Note Completion: Critical Care PatientI have reviewed [...] Review of Systems, Objective, Assessment and Plan, Signatures/Attestation/Certification Last Updated: 27-Apr-2020 21:32 by Saul Guerrero)NormalSCL Health Community Hospital - SouthwestLACTATEon 99-63-8104Dsobmee [Moles/Vol]1.6 mmol/LNormal0.4 - 2.0[facility] SouthwestComment on above:Result Comment: Venipuncture immediately after or during the administration of Metamizole may lead to falsely low results. Testing should be performed immediately prior to Metamizole dosing.Performed By: #### LACT ####[facility] [place], [place] [address]WN/INRon 38-71-6562DBL Coag (PPP) [Relative time] 1.1 {INR}Normal0.9 - 1.1[facility] SouthwestComment on above:Performed By: #### PTINR #### [facility] [address] [place], [place] [address]WJ Coag (PPP) [Time]13.2 yFjveqw85.1 - 13.3[facility] SouthwestComment on above:Result Comment: Note new reference range as of 04/05/2020.Performed By: #### PTINR #### [address] [address]Dpztavt Profile - Adult v2on 02-26-2953Rijflbw Profile - Adult j3Xukwuti: Initial Info: How to be Addressednick Spoken Language PreferredEnglish Source of Informationpatient Are you currently using the Personal Electronic Health Record or [employer] Stated Reason for Admissionsob Limitations on Visitors/Phone Callsnone Wants Family/Rep Notified of Admissionno Notify PCPdo not notify PCP Informed of Patient Visiting Rightsyes Arrived Fromnorris Employment Statusemployed Patient Belongingsremains with patient Patient Belongings Remaining with Patientcash/credit card; cell phone/electronics; clothing Medications Brought to Hospitalno General Health: Weight in kg80.7 kilogram(s) Weight in bia061.9 pound(s) Height in feet6 feet Height in inches1 inch(es) Height in cm185.4 centimeter(s) BMI (kg/m2)23.477 square meter Weight Methodactual (measured) Scale Typebed Height Methodstated [facility] Based Care: How would you like [...] pack Street Drug/Inhalant/ Medication Use Statuscurrent street drug/inhalant/medication abuse Street Drug/Medication/ Inhalant Typecocaine; heroin Street Drug/Medication/ Inhalant Routesnorting Frequency of Street Drug/Medication/Inhalant Use2-4 times/month Health Mgmt: Symptoms/Conditions Managed at Homenone Barriers to Managing Healthnone Relationship/Environ: Primary Source of Support/Comfortfriend Lives Withfriend(s) Living Arrangementsnursing home; house Resource/Environmental Concernsnone Anticipated Transition [place] Services Anticipated at Transitionnone Significant IndicatorsComplete Information Review: Allergies, Home Meds and Significant Events have been Reviewed and Verified with Patient/Familyyes ALLERGY, INTOLERANCE, ADVERSE EVENT: Allergies: penicillin: Drug, Unknown, Active Electronic Signatures: Sowmya Cristobal (ANSELMO) (Signed 27-Apr-2020 11:41) Authored: Profile, Additional Information Last Updated: 27-Apr-2020 11:41 by Sowmya Cristobal)[facility] HospitalProvider Note - ED v2on 97-12-3533Qfljrilj Note - ED a6Zwabfspp Note - ED v2: Chart Review: ED [...] medications, allergies, medical history, and surgical history ALLERGIES/INTOLERANCES: Allergy Allergen: penicillin Type: Drug Reaction: Unknown [...] SIGNS: T PRBP SpO2O2(LPM) %FiO2 Method 27-Apr-2020 07:38:00-36.995291298/108 91 room air, no respiratory support MEDICAL [...] Case is discussed with Dr. Guerrero the trap puller, who kindly agrees to except patient onto [...] Data Referenced From Triage - ED 27-Apr-2020 07:38NormalUHca [facility] HospitalTROPONIN Ion 61-88-8385Hxeloubs I.cardiac [Mass/Vol]ng/mLNormal0.00 - 0.03 [facility] SouthwestComment on above:Result Comment: LESS THAN 0.04 NG/ML: NEGATIVE REPEAT [...] is performed using different testing methodology at [facility] than at other [facility]. Direct result comparisons should only be made within the same method.Performed By: #### TROP2 #### [address] [address]Nvxkfb - EDon 32-18-2206Fpmkgq - EDQuick Triage: The patient and/or guardian verbally acknowledges [...] BMI (kg/m2): 25.019 Calculated BSA (m2) 2.10 [place] Coma Scale: Best Eye Response: (E4) spontaneous [...] Last Updated: 27-Apr-2020 07:58 by Abundio Ayon (MONCHO)[facility] Vital Signs Date TimeVital SignValuePerforming JftokgnzfVktaxymw96-34-0277 10:18-0400Body bacuxa366.42 cmBrody Mccormack MD Work Phone: [phone]10-16-2025 10:18-0400 Body mass index (BMI) [Ratio]22.4 kg/i0JesfqnnBrody Mccormack MD Work Phone: [phone]10-16-2025 10:18-0400 Body .11 kgBrody Mccormack MD Work Phone: [phone]10-16-2025 10:18-0400 Diastolic blood cvoqwppp23 mm[Hg]Brody Mccormack MD Work Phone: [phone]10-16-2025 10:18-0400 Heart rate87 /minDvic Mccormack MD Work Phone: [phone]10-16-2025 10:18-0400 Systolic blood ixafmugn290 mm[Hg]Brody Mccormack MD Work Phone: [phone]09-18-2025 12:58-0400 Body vlwpke505.4 Emily Boyd MD Work Phone: [facility] HospitalNemxslkoje73-23-4849 12:58-0400Body mass index (BMI) [Ratio]22.9 kg/v2ZjpfpHilton Boyd MD Work Phone: [facility] HospitalNksxuqdwjt52-27-1759 12:58-0400Body .74 kgHilton Boyd MD Work Phone: [phone] [place], [place] [address]Etvsnyqqja85-08-5718 12:58-0400Heart rate85 /min Hilton Boyd MD Work Phone: [address] [place], [place] [address]Moujxauroz62-81-1848 12:58-0400Respiratory rate16 /minHilton Boyd MD Work Phone: [phone] HospitalQhyuvvhfvz52-07-0155 12:58-3053CmF7% (BldA) [Mass fraction]97 %Hilton Boyd MD Work Phone: [phone] [place], [place] [address]Dedimffawr06-50-2347 13:58-0400Body hjkxid170.42 cmBrody Mccormack MD Work Phone: [phone] [place], [place] 6687209-04-2025 13:58-0400 Body mass index (BMI) [Ratio]23.1 kg/o3EcdlxrcBrody Mccormack MD Work Phone: [phone]09-04-2025 13:58-0400 Body .37 kgBrody Mccormack MD Work Phone: [phone] [place], [place] 6687209-04-2025 13:58-0400 Diastolic blood pdnityru36 mm[Hg]Brody Mccormack MD Work Phone: [phone] [place], [place] 6687209-04-2025 13:58-0400 Heart rate89 /minDvic Mccormack MD Work Phone: [phone] [place], [place] 6687209-04-2025 13:58-0400 Systolic blood tojswyay223 mm[Hg]Brody Mccormack MD Work Phone: [phone]03-21-2024 17:17-0400 Body mass index (BMI) [Ratio]24.41 kg/a2AympurvStu Lisa MD Work Phone: [facility]03-21-2024 17:17-0400Body vyuyfafmbbx20.4 [degF]Stu Lisa MD Work Phone: [facility]03-21-2024 17:17-0400Body .92 kgStu Lisa MD Work Phone: [facility]03-21-2024 17:17-0400Diastolic blood jwwmajaq79 mm[Hg]Stu Lisa MD Work Phone: [facility]03-21-2024 17:17-0400Heart rate91 /María Lisa MD Work Phone: [facility]03-21-2024 17:17-0400 Respiratory rate16 /María Lisa MD Work Phone: [facility]03-21-2024 17:17-3287IhD0% (BldA) [Mass fraction]97 %Stu Lisa MD Work Phone: [facility]03-21-2024 17:17-0400Systolic blood hcyzqqop768 mm[Hg]Stu Lisa MD Work Phone: [facility]08-29-2022 13:30-0400Body negdtoqlsax66.4 [degF]Marisol Andrea MD Work Phone (unformatted): [phone] SECDahu [facility]ITALPSKPDR06-39-8279 13:30-0400 Diastolic blood mm[Hg]Marisol Andrea MD Work Phone (unformatted): [phone] SECDahu [facility] HOSPITALLIJTDR75-58-8142 13:30-0400 Heart rate84 /Indu Andrea MD Work Phone (unformatted): [phone] SECDahu [facility]ITALKHJXWH53-34-3286 13:30-0400 Respiratory rate18 /minMarisol Andrea MD Work Phone (unformatted): [phone] apprupt08-29-2022 13:30-0400 SaO2% (BldA) [Mass fraction]97 %Marisol Andrea MD Work Phone (unformatted): [phone] [facility]ITALAdTotumUPCGWT42-16-4683 13:30-0400 Systolic blood gcelhqoc738 mm[Hg]Marisol Andrea MD Work Phone (unformatted): [phone] [employer]OS[facility]ITALOJBIWY42-30-2544 14:07-0400 Body ktyxxugcjqj47 [degF]Marisol Andrea MD Work Phone (unformatted): [phone] [facility]ITALAdTotumBYZFKI66-60-5356 14:07-0400 Diastolic blood mm[Hg]Marisol Andrea MD Work Phone (unformatted): [phone] [facility]ITALAdTotumPKHLFK55-07-6886 14:07-0400 Heart wuyd297 /minMarisol Andrea MD Work Phone (unformatted): [phone] [facility] HOSPITALcitiservi VLXFFU03-32-8571 14:07-0400 Respiratory rate18 /minMarisol Andrea MD Work Phone (unformatted): [phone] [employer] HOSPITALYPOEJY65-26-9441 14:07-0400 SaO2% (BldA) [Mass fraction]96 %Marisol Andrea MD Work Phone (unformatted): [phone] [employer] ZKEDUM71-19-4614 14:07-0400 Systolic blood mm[Hg]Marisol Andrea MD Work Phone (unformatted): [phone] [facility]ITALAdTotumDDOXLC88-45-6597 06:35-0400 Body mqphwlighgp27.5 [degF]Mick Martin MD Work Phone: [facility] [employer] [facility] TQURHN66-04-2109 06:35-0400Diastolic blood zunmdlho37 mm[Hg]Mick Martin MD Work Phone: [facility] [employer] [facility] VDBYCY54-05-2720 06:35-0400Heart rate91 /Erika Martin MD Work Phone: [facility]PITALAdTotumDXYXTF29-01-6956 06:35-0400 Respiratory rate23 /minMick Martin MD Work Phone: [facility]AdTotumKURTKH36-22-3839 06:35-7271SdD7% (BldA) [Mass fraction]93 %Mick Martin MD Work Phone: [facility]OSPITALAdTotumETOUIM56-65-8283 06:35-0400Systolic blood pbtargkj873 mm[Hg]Mick Martin MD Work Phone: [facility]PITALAdTotumUWUGJY31-96-3679 05:41-0400Body mass index (BMI) [Ratio]24.9 kg/u5KelupbqgMick Martin MD Work Phone: [facility]ITALAdTotumNMSDYY23-30-6282 05:41-0400Body gkxtaa13.6 kgMick Martin MD Work Phone: [facility]ITALAdTotumYZEMDQ76-20-6675 06:00-0400Body wwmqex852.4 cmMick Martin MD Work Phone: [facility]ITALAdTotumNYZFSV07-81-1868 07:30-0400Body ubccqgjouxq91.6 [degF]Johann Rodriguez DO Work Phone: bFORM[facility]LY [facility]ITALDahu [facility]ITALAdTotumLWGIGB81-51-8921 07:30-0400Diastolic blood mm[Hg]Johann Rodriguez DO Work Phone: bFORMERLY [facility]ITALDahu [facility]ITALAdTotumZHLDSU11-38-1740 07:30-0400Heart uljq998 /minMichaesofy Rodriguez DO Work Phone: bFORMERLY [facility]LL HOSPITALe-Merges.com06-28-2022 07:30-0400 Respiratory rate16 /minMichael Michael DO Work Phone: bFORMERLY [facility]OSPITALDahu [facility]ITALAdTotumUNHWLC58-53-3745 07:30-8950UfH7% (BldA) [Mass fraction]99 %Johann Rodriguez DO Work Phone: b apprupt06-28-2022 07:30-0400Systolic blood mm[Hg]Johann Rodriguez DO Work Phone: [facility] ZZTEIQ43-69-3314 05:05-0400Body mass index (BMI) [Ratio]21.45 kg/z1Vvbkciu Retjose DO Work Phone: [facility] ZJSYKA41-14-3171 05:05-0400Body rydzsb63.75 kgMichaesofy Rodriguez DO Work Phone: [facility] ZLJFNC04-92-4996 04:45-0400Body wyesdf743.4 cmMichaesofy Rodriguez DO Work Phone: [facility] OFIFWR11-21-2623 02:30-0400Diastolic blood lsfbfoum44 mm[Hg]Mallika Garcia DO Work Phone: [facility] BXSLVW42-21-8315 02:30-0400Heart rate89 /Juan Miguel Garcia DO Work Phone: [facility] ZPRUXR89-47-3260 02:30-0400 Respiratory rate16 /minMallika Garcia DO Work Phone: [facility] AOZDBH00-96-6899 02:30-5152IaS0% (BldA) [Mass fraction]97 %Mallika Garcia DO Work Phone: [facility] RDAUCC01-19-4726 02:30-0400Systolic blood jyndvuxq217 mm[Hg]Mallika Garcia DO Work Phone: [facility] EGHWTM65-43-4919 20:17-0400Body mselsv516.4 Chip Garcia DO Work Phone: [facility] YOAAWA99-36-0507 20:17-0400Body mass index (BMI) [Ratio]23.75 kg/a6KleudyswaMallika Garcia DO Work Phone: [facility]ITALAdTotumRVUZKO73-90-0846 20:17-0400Body lkueslsuwxf58 [degF]Mallika Garcia DO Work Phone: bon [facility]06-25-2022 20:17-0400Body ilctlm49.65 kgChcharlotte Garcia DO Work Phone: DWY [facility]03-22-2022 14:15-0400Heart tywk100 /minSnatalie Canela MD Work Phone: [phone] [place], [place] 7129103-22-2022 14:15-0400Respiratory rate24 /minSnatalie Canela MD Work Phone: [facility]1885 14:15-9233BmZ5% (BldA) [Mass fraction]95 %Florencia Canela MD Work Phone: [phone] [place], [place] 7129[address]-22-2022 11:20-0400Body dcsrfdyahlg98.2 [degF]Florencia Canela MD Work Phone: 1([phone])[address] [place], [place] [address]-22-2022 11:20-0400Diastolic blood ajnxoxci89 mm[Hg]Florencia Canela MD Work Phone: 1([phone])178-[facility] HospitalUkyuoj34-30-7407 11:20-0400Systolic blood cjvwuzjx776 mm[Hg]Florencia Canela MD Work Phone: 1(040)754-[facility] HospitalPkwofz54-05-3940 12:19-0400Body nhvedf884.9 cm Florencia Canela MD Work Phone: 1(698)[address] [place] [address]-21-2022 06:00-0400Body mass index (BMI) [Ratio]23.68 kg/b4Wauvqfsmichelle Canela MD Work Phone: 1([phone] [place] [address]-21-2022 06:00-0400Body bpgvul35.2 kg Florencia Canela MD Work Phone: [phone]-[facility] [facility] HospitalBxmlqr01-50-1406 20:17-0500Diastolic blood mhfpgirc87 mm[Hg]Nicholas Martinez MD Work Phone: [facility] HospitalIrzzfy12-92-8971 20:17-0500Heart dnak736 /min Nicholas Martinez MD Work Phone: [place] [phone] 20:17-0500Respiratory rate24 /minNicholas Martinez MD Work Phone: [place] [address]Jbdxgj08-02-4992 20:17-3570CaT0% (BldA) [Mass fraction]98 %Nicholas Martinez MD Work Phone: [facility] HospitalRnxqvn58-71-9796 20:17-0500Systolic blood auhgwrak254 mm[Hg]Nicholas Martinez MD Work Phone: 1(244) [phone] Casey StreetWwvjfv85-61-7705 19:40-0500Body .5 [degF]Nicholas Martinez MD Work Phone: [place] [address]Iuaxnk81-98-3709 17:47-0500Body mass index (BMI) [Ratio]21.24 kg/y5TghtdmpNicholas Martinez MD Work Phone: [place] [address]Mrojcx50-68-2087 17:47-0500Body zrmgoi63.03 kg Nicholas Martinez MD Work Phone: [place] [address]Ysdkyf39-12-6184 21:00-0500Diastolic blood iokoemfw21 mm[Hg]Jessica Villaseñor MD Work Phone: [place] [address]Xhonsn72-76-5489 21:00-0500Heart wkql169 /min Jessica Villaseñor MD Work Phone: [place] [address]Lvnuhs99-22-4433 21:00-0500Respiratory rate17 /minJessica Villaseñor MD Work Phone: [place] [address]Xkyqsr71-33-3140 21:00-8508KpD7% (BldA) [Mass fraction]95 %Jessica Villaseñor MD Work Phone: [place] [address]Lcqvck57-31-1994 21:00-0500Systolic blood inplxzrf988 mm[Hg]Jessica Villaseñor MD Work Phone: [place] [address]Gqvosc19-59-4722 18:09-0500Body qspnmmuidze36.7 [degF]Jessica Villaseñor MD Work Phone: [facility] HospitalAoidwj84-84-1083 13:54-0500Heart rate97 /min Palomo Drummond MD Work Phone: [facility] HospitalGbtlhd31-25-0097 13:54-5732ReE9% (BldA) [Mass fraction]96 %Palomo Drummond MD Work Phone: [facility] HospitalZgqbxs57-88-3546 07:32-0500Body npmfbjjopfp87.8 [degF]Palomo Drummond MD Work Phone: [phone] [place], [place] [address]Paxnta00-26-0508 07:32-0500Diastolic blood mm[Hg]Palomo Drummond MD Work Phone: [facility] HospitalPmofxj10-31-4741 07:32-0500Respiratory rate16 /minJucassi Drummond MD Work Phone: [facility] HospitalJtydcb42-91-0777 07:32-0500Systolic blood mm[Hg]Palomo Drummond MD Work Phone: [facility] HospitalNnaplg07-72-9017 15:13-0500Body bejxqh905.4 cm Palomo Drummond MD Work Phone: [facility] HospitalTpxwmd70-58-5708 02:57-0500Body mass index (BMI) [Ratio]22.72 kg/b4Vndytycassi Drummond MD Work Phone: [facility] HospitalEqxahh10-72-3423 02:57-0500Body giuuke35.11 kg Palomo Drummond MD Work Phone: [facility] HospitalEohuce22-69-3156 17:42-0400Diastolic blood rawlrxrg44 mm[Hg][employer] Work Phone: 1(758) 490-700007-19-2021 17:42-0400Heart rate83 /[facility] [employer] Work Phone: 1(333) 446-553407-19-2021 17:42-0400Respiratory rate18 /minFire[facility] [employer] Work Phone: 1(892) 301-808907-19-2021 17:42-4660EvA9% (BldA) [Mass fraction]95 % [facility] [employer] Work Phone: 1(106) 661-249607-19-2021 17:42-0400Systolic blood mm[Hg] [facility] [employer] Work Phone: 1(935) 561-672107-19-2021 11:47-0400Body mass index (BMI) [Ratio] 24.94 kg/y0Fhsxw [employer] Work Phone: 1(526) 352-218607-19-2021 11:47-0400Body zybaxrfqjcb30.9 [degF][facility] [employer] Work Phone: 1(316) 559-395807-19-2021 11:47-0400Body akndxv53.73 kgFirelands [facility] [employer] Phone: 1(576) 248-772802-05-2021 11:55-0500Respiratory Rate16 /min[facility], LB11-46-5211 10:45-0500Pulse Lltonjcc08 %[facility], KO41-50-7921 10:41-0500Pulse (Heart Rate)99 /minA[facility], IF04-66-5147 10:30-0500BP Tgqtfnabh10 mm[Hg][facility], US61-92-8484 10:30-0500BP Fepterua381 mm[Hg][facility], YS28-40-8499 09:36-0500Respiratory rate14 /min[facility], UZ89-59-1144 06:38-0500Body Olcjoeqccfn50.8 [degF][facility], [place] Encounters Encounter DateEncounter TypeCare ProviderFacilityStart: 08-26-2025 End: 41-25-5766sputxombkmAemotiu M Hoy MD Work Phone: [facility] Work Phone: Start: 08-26-2025 End: 66-35-1498Zfeefak encounter Jaja Novak [facility] Work Phone: Start: 07-29-2025 End: 44-50-1096Oknfgd Gonzalez Boyd MD Work Phone: [facility] [place] [facility]ocrinologyStart: 07-29-2025 End: 14-28-7671Cmtmbf Gonzalez Boyd MD Work Phone: [facility] EndocrinologyStart: 07-29-2025 End: 76-61-1313Hnfhhv outpatient new 45 minutesHilton Boyd MD Work Phone: [facility] EndocrinologyComment on above:Anti-TPO antibodies present (Primary Dx); Abnormal thyroid function testStart: 07-29-2025 End: 83-08-2702ojcowgbovtAYFWJ F SABBAGHNot AvailableStart: 07-22-2025 End: 68-56-7012Mlgtncn encounter procedureTemporary [facility]rosc[facility] Work Phone: Start: 07-22-2025 End: 83-79-3830hjdexajznvHnhmiqb M Hoy MD Work Phone: [facility] Work Phone: Start: 20-76-3077Aqq-patient / Non-visitBean Bloom MD-[facility] Work Phone: Start: 07-15-2025 End: 37-07-4414eeqamavixiRgsvbjz M Hoy MD Work Phone: [facility] Work Phone: Start: 07-15-2025 End: 21-94-9324Ynyoeoq encounter procedureAnish Novak APRN-[facility] Work Phone: Start: 05-28-2025 End: 52-50-2797vhjiaxbsycEYVR [facility] Hospitaltart: 01-30-2024 End: 03-24-2152Jwewtlwzt department patient visitJEANNIE S[facility] REHABTORRIParkview Health [facility] Hospitaltart: 01-30-2024 End: 26-55-7461Sojclswgn department patient visitStu Lisa MD Work Phone: [facility] EDComment on above:Influenza A (Primary Dx)Start: 11-12-2023 End: 22-18-9352Kfgfxzlzt department patient visitDEVONMERCY Pacheco RITCHIEMount Carmel Health Systemtart: 10-18-2023 End: 77-49-5209Eyqvqkyrp department patient visitCHRISBISI CHANDLERETTINGERMmatthias Malone HospitalStart: 09-03-2023 End: 10-46-2208ozxdcuyflvAijfglFcvch: 07-09-2022 End: 94-42-7559Znfnyeabxt hospital visit by Tai Andrea MD Work Phone (unformatted): [phone] 3C ObservationComment on above:Arrived Start: 07-02-2022 End: 66-22-5711Niwtbuojmi hospital visit by Tai Andrea MD Work Phone (unformatted): [phone] 3C ObservationComment on above:Subacute right-sided infective endocarditis (Primary Dx)Start: 06-15-2022 End: 06-34-4664Wksgyzdwqg and management of inpatientMick Martin MD Work Phone: stvZ 4B StepdownComment on above:Lower respiratory infection (Primary Dx); 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, unspecified whether septic shock present (HCC); Subacute viral endocarditis; Endocarditis of tricuspid valveStart: 06-13-2022 End: 73-13-8050pvujkgcytmSWQZGTDRCTN [facility] Hospitaltart: 06-13-2022 End: 03-54-4770Qpckiipwac hospital [facility] LaboratoryStart: 05-17-2022 End: 59-51-0419wfhutvrbowXIHYTFUKHSC D [facility] HospitalStart: 05-17-2022 End: 64-37-2385Esruufzvia hospital visit by [facility]ER[facility] LaboratoryStart: 05-06-2022 End: 54-70-6427Hwhpfdstet and management of inpatientJohann Rodriguez DO Work Phone: stvz 2C Ortho/Med SurgStart: 05-05-2022 End: 74-08-3624Aykuofisc department patient visitCHCHARLOTTE JACOBSENCHRISTIlutheran hospitalguille [facility] HospitalStart: 05-05-2022 End: 60-66-1709Zpjbizddi department patient visitMallika Garcia DO Work Phone: [facility] EDComment on above:Acute osteomyelitis of left calcaneus (HCC) (Primary Dx); Leukocytosis, unspecified typeStart: 02-14-2022 End: 58-49-4543Fllvojoxmm hospital visit by [facility] [address] ScanComment on above:Septic embolism (HCC)Acute bacterial endocarditisStart: 01-20-2022 End: 03-80-4463Cptvcykbij and management of inpatientSnatalie Canela MD Work Phone: stvz CAR 2Comment on above:Post-operative pain (Primary Dx); MRSA bacteremia; Moderate tricuspid regurgitation; Acute osteomyelitis of left calcaneus (HCC); Endocarditis of tricuspid valve; Septic embolism (HCC)Start: 01-20-2022 End: 11-48-4744Rjwjqnusd department patient visitSEAKettering Health Main [facility] Start: 01-20-2022 End: 30-69-7456Odnqzobcw department patient visitNicholas Martinez MD Work Phone: [facility] EDComment on above:Subacute endocarditis due to other organism (Primary Dx); Abnormal chest x-ray; Sinus tachycardiaStart: 01-10-2022 End: 19-52-4684Rvinnhbjk department patient visitHUWOJCIECH VILLASEÑORKindred Hospital Limatart: 01-10-2022 End: 69-73-8431Famnudwbe department patient visitJessica Villaseñor MD Work Phone: [facility] EDComment on above:Accidental overdose of heroin, initial encounter (HCC) (Primary Dx)Start: 01-06-2022 End: 98-84-4775Bsyhxccfir hospital visit by Carla Allred DO Work Phone: stvz 3C Med SurgComment on above:Right-sided endocarditis due to Staphylococcus aureus (Primary Dx)Start: 12-13-2021 End: 22-06-9540Grhkozghah and management of inpatientJucassi Drummond MD Work Phone: stvz Renal//Med SurgComment on above:Acute bacterial endocarditis (Primary Dx); Septic embolism (HCC); Heroin abuse (HCC); MRSA bacteremia; Endocarditis of tricuspid valve; Chronic hepatitis C without hepatic coma (HCC)Start: 12-11-2021 End: 08-84-1424Umwdoviukb and management of inpatientDR EMY REBOLLEDO Facility:X9Itpyi: 10-23-2021 End: 09-63-8513Grwfrtxsc department patient visitRACLEM [facility] Centertart: 05-29-2021 End: 88-83-0966Dpescynho department patient visitAcmc Healthcare System [facility] EDComment on above:Leg swelling (Primary Dx); Motor vehicle collision, initial encounterStart: 12-16-2020 End: 17-93-8092Lczjcynup department patient visitJaida Amilcar Work Phone: [facility] EDComment on above:Atypical chest pain (Primary Dx); Chest wall pain; Substance abuse (HCC); COVID-19 Procedures DateProcedureProcedure DetailPerforming ClinicianStart: 67-87-3049Llsmzcrcrs elastography of liverDougambar Mccormack MD Work Phone: Start: 34-42-9897HFHTW-19 & INFLUENZA COMBOAlicia Dulce FAUSTIN Work Phone: Start: 08-51-5413Cmqv ia streptococcus group aAlicnolberto Cardona MD Work Phone: Start: 84-87-5697DPJWS METABOLIC PANEL W/ REFLEX TO MG FOR LOW KMaxim Ana FAUSTIN Work Phone: Start: 96-03-5638Izarv count complete automatedMaxim Ana FAUSTIN Work Phone: Start: 20-28-4415Owatyoh function panelAlberto Perez MD Work Phone: Start: 41-73-2455Rafiwmiwyc exam abdomen 1 viewMaxjohn Perez MD Work Phone: Start: 39-39-1614LFPPI METABOLIC PANEL W/ REFLEX TO MG FOR LOW KMaxim Ana FAUSTIN Work Phone: Start: 03-06-1256Cmimz count complete automatedMaxjohn Perez MD Work Phone: Start: 58-54-9973Jkbz screen quantitative vancomycin Marisol Andrea MD Work Phone (unformatted): [phone]: 36-98-0807Pjkgq function panelMarisol Andrea MD Work Phone (unformatted): [phone]: 78-24-2315AQYLQ METABOLIC PANEL W/ REFLEX TO MG FOR LOW KSarah Tutolo COMMERCIAL ANNOUNCER - [facility] Work Phone: Start: 20-68-0826Cbo spinal canal cervical w/o & w/contr matrlArjordana Andrea MD Work Phone (unformatted): [phone]: 77-87-2850Uzc prim src gram/giemsa stain bct fungi/cellShirCranston General Hospital Work Phone: Start: 06-07-4732QQLEMCIARJUSTD 3DNaskeesha Rasmussen MD Start: 38-39-3473Umloplzzhjqlonui o screenNasser Guille Rasmussen MDStart: 06-16-2022 LACTATE, SEPSISShirley [facility] Work Phone: Start: 62-94-5007Cwojlmojjgo peptideShirley [facility] Work Phone: Start: 83-93-7055JARWZ PNEUMONIAE ANTIGENNasser Y Valery MDStart: 98-83-5607Dlhl tst prsmv instrmnt chem analyzers pr dateBeverly Rasmussen MD Start: 26-57-1330Fridt dip stick/tablet rgnt auto w/o microscopyBeverly Rasmussen MD Start: 69-03-7270Fpzpz s aureus methicillin resist amp probe tqNaskeesha Rasmussen MD Start: 32-51-8550X-reactive proteinShimarci Quintero COMMERCIAL ANNOUNCER - [employer] Work Phone: Start: 20-42-2688Flpunctnnbqkx (pct)Marisol Andrea MD Work Phone (unformatted): [phone]: 80-13-3227Yg thorax w/contrast material Mick Martin MD Work Phone: Start: 60-06-3459Iprhv of troponin quantitativeHernesto Maldonado MD Work Phone: Start: 01-29-8713Blktyjm function panelHernesto Maldonado MD Work Phone: Start: 20-82-8867XZNIHSM, SEPSISHernesto Maldonado MD Work Phone: Start: 67-13-1846ADWHCWS, BLOOD 1Kareem Joel FAUSTIN Work Phone: Start: 76-43-3335Etbarlined exam chest 2 viewsHernesto Maldonado MD Work Phone: Start: 66-29-2881OLYPY-19, RAPIDHernesto Maldonado MD Work Phone: Start: 55-29-3457Wacvy metabolic panel calcium total Hernesto Maldonado MD Work Phone: Start: 34-34-4945LMTPSID, SEPSISHernesto Maldonado MD Work Phone: Start: 23-06-4571Gjoahyx bacterial blood aerobic w/id isolatesHernesto Maldonado MD Work Phone: Start: 25-72-5280Mxw routine ecg w/least 12 lds i&r onlyHernesto Maldonado MD Work Phone: Start: 37-52-9783Awkmowfkdnufm metabolic panel Fabricio Storm MD Work Phone: Start: 87-01-2018Ovu any jt lower extrem w/o contrast matrlRiya Art DPM Work Phone: Start: 24-79-4082XOKPC METABOLIC PANEL W/ REFLEX TO MG FOR LOW KTamara L Tobian COMMERCIAL ANNOUNCER - [employer] Work Phone: Start: 33-50-1390S-reactive proteinRiya Art DPM Work Phone: Start: 03-43-7003Fylbqzciivgpx rate rbc automatedRiya Art DPM Work Phone: Start: 46-41-2953Hl lower extremity w/contrast materialChristina R Garcia DO Work Phone: Start: 17-75-9461Mhebb count complete auto&auto difrntl wbcChristina R Garcia DO Work Phone: Start: 11-50-6627RFGGIXW, SEPSISChristina R Garcia DO Work Phone: Start: 78-56-3380Vesabdounh microscopic onlyChristina R Garcia DO Work Phone: Start: 10-51-4121Kzmjs dip stick/tablet rgnt auto w/o microscopyChristina R Garcia DO Work Phone: Start: 04-71-0841Ih thorax w/o contrast material Marisol Andrea MD Work Phone (unformatted): [phone]: 88-42-3658Iiob tthrc r-t 2d w/wom-mode compl spec&colr dNicholas A Parker COMMERCIAL ANNOUNCER - [employer] Work Phone: Start: 89-21-6464Piz routine ecg w/least 12 lds w/i&r Marisol Andrea MD Work Phone (unformatted): [phone]: 64-49-8999IJUDX METABOLIC PANEL W/ REFLEX TO MG FOR LOW KLandon R Bowerbank DPM Work Phone: Start: 66-88-3580Dljjzgav kinase totalLandon R Bowerbank DPM Work Phone: Start: 85-57-7871Uvxrlvr function panelLandon R Bowerbank DPM Work Phone: Start: 30-85-3425HLUUWUSC PLATELET FRACTIONLandon R Bowerbank DPM Work Phone: Start: 70-27-6413OTNYD METABOLIC PANEL W/ REFLEX TO MG FOR LOW KLandon R Bowerbank DPM Work Phone: Start: 84-67-6260Dtsfbeva kinase totalLandon R Bowerbank DPM Work Phone: Start: 88-61-2513Ftoyagw function panelLandon R Bowerbank DPM Work Phone: Start: 12-25-1174Cwjgt of lactateChristopher M Hauger DO Work Phone: Start: 54-15-4615Wzukwcx blood reagent strip Fabricio Guzman Hauger DO Work Phone: Start: 00-74-2958Unywf of lactateChristopher M Hauger DO Work Phone: Start: 53-01-7016VINCESD, BLOOD 1Ldeshaun Dumont MD Work Phone: Start: 79-23-4691Bxh routine ecg w/least 12 lds i&r onlyMalissa D Delgrosso COMMERCIAL ANNOUNCER - [employer] Work Phone: Start: 08-40-0803WIXAG METABOLIC PANEL W/ REFLEX TO MG FOR LOW KLandon R Bowerbank DPM Work Phone: Start: 45-51-5909Atifabau kinase totalLandon R Bowerbank DPM Work Phone: Start: 94-58-6288Zzpbrdk function panelLandon R Bowerbank DPM Work Phone: Start: 41-11-4371VBLGD METABOLIC PANEL W/ REFLEX TO MG FOR LOW KLandon R Bowerbank DPM Work Phone: Start: 36-76-1145Zlpvbtsg kinase totalLandon R Bowerbank DPM Work Phone: Start: 34-79-5542Bxwaxlj function panelLandon R Bowerbank DPM Work Phone: Start: 31-44-7881Zswuiargmvv during operationTip Grewal DPM Work Phone: Start: 01-26-2022 End: 37-00-3058IIAY DEBRIDEMENT INCISION AND DRAINAGETip Grewal DPM Work Phone: Start: 49-19-5063ZLVXISVA PATHOLOGY REPORTTip Grewal DPM Work Phone: Start: 07-24-9491WXTIN METABOLIC PANEL W/ REFLEX TO MG FOR LOW KLandon R Bowerbank DPM Work Phone: Start: 71-77-1499Csdgvjll kinase totalLandon R Bowerbank DPM Work Phone: Start: 55-53-5148Ktnvbni function panelLandon R Bowerbank DPM Work Phone: Start: 47-87-8183Hmgx prph ctr vad w/subq port age 7 yr/>Marisol Andrea MD Work Phone (unformatted): [phone]: 85-84-8916Mmemkzo procedureMarisol Andrea MD Work Phone (unformatted): [phone]: 96-93-9505GEKDU METABOLIC PANEL W/ REFLEX TO MG FOR LOW KChristopher M Donaldr DO Work Phone: Start: 91-60-4030Bvqexicy kinase totalLandon R Bowerbank DPM Work Phone: Start: 11-73-7551Tkszopg function panelLandon R Bowerbank DPM Work Phone: Start: 12-81-2500HSNYU-19, RAPIDGiles Garcia DPM Work Phone: Start: 82-85-5324KNKJUWCUCO DISEASE INTERVENTION Marisol Andrea MD Work Phone (unformatted): [phone]: 83-31-5236Ougiuudpuqiytbj echocardiographyArjordana Andrea MD Work Phone (unformatted): [phone]: 67-34-7426Lltqymp catheterizationUnknown Provider ResultStart: 63-70-1758Tebakrb blood reagent stripChristopher Thomas Hauger DO Work Phone: Start: 53-32-4491Xzpmmgi blood reagent strip Fabircio Guzman Dmitryfiona DO Work Phone: Start: 51-09-2182Cfj any jt lower extrem w/o & w/contrast matrDilan Andrea MD Work Phone (unformatted): [phone]: 07-62-0255Dzwuzcp blood reagent strip Fabricio Bennettjc DO Work Phone: Start: 95-05-9820Ywckwuw function panelChristopher M Hauger DO Work Phone: Start: 01-23-2022 End: 35-47-5832Wfzwd function panelChristopher Thomas Hauger DO Work Phone: Start: 96-51-6587Zltb screen quantitative vancomycin Theo Nguyen Florentin DO Work Phone: Start: 87-67-8872KWPTDVC, BLOOD 1Ajessica Andrea MD Work Phone (unformatted): [phone]: 46-75-5349LBAKV OSTOMY EVAL AND TREAT Theo Pachecodon DO Work Phone: Start: 78-39-0458Kppphye blood reagent stripCharhoma Lerma DO Work Phone: Start: 71-95-0761Ujyisgo blood reagent stripCharles Patrick Florentin DO Work Phone: Start: 93-67-4635Rkufkiq blood reagent stripCharhoma Lerma DO Work Phone: Start: 83-34-3139Fduwttm blood reagent stripCharhoma Lerma DO Work Phone: Start: 95-58-5804Jmflrvajpa glycosylated r4yXeglian S Florentin DO Work Phone: Start: 42-82-1742Riryw calcaneus minimum 2 viewsHolly S Medlen COMMERCIAL ANNOUNCER - [employer] Work Phone: Start: 92-85-0402PXNQGWQ, BLOOD 1Holly S Medlen COMMERCIAL ANNOUNCER - [employer] Work Phone: Start: 31-23-9876Yratq of lactateHolly S Medlen COMMERCIAL ANNOUNCER - [employer] Work Phone: Start: 12-00-2816YIKSG METABOLIC PANEL W/ REFLEX TO MG FOR LOW Jeanne Canela MD Work Phone: Start: 15-92-6975C-reactive proteinHolly S Medlen COMMERCIAL ANNOUNCER - [employer] Work Phone: Start: 58-49-9570Qcjgq of lactateFlorencia Canela MD Work Phone: Start: 81-87-3613WPWCVGN, BLOOD 1Showzuleyka Canela MD Work Phone: Start: 10-63-2042UAAMLGZ, Nedra Martinez MD Work Phone: Start: 85-46-8479Ec thorax w/contrast Khris Martinez MD Work Phone: Start: 19-40-6192Lkmnte dgradj products d-dimer quantitativeNicholas Martinez MD Work Phone: Start: 79-48-4174LGSTFBQNedra NG MD Work Phone: Start: 01-20-2022 End: 92-03-8957KEVWDWRNedra BHATIA MD Work Phone: Start: 91-32-6337Jzyhzhzbwfa Esther Martinez MD Work Phone: Start: 24-64-4373RYYJU-19, RAPIDNicholas Martinez MD Work Phone: Start: 34-36-4999Uxbukhwiw influenzaNicholas Martinez MD Work Phone: Start: 51-26-4467Gwxfsguyoj exam chest single view Nicholas Martinez MD Work Phone: Start: 17-99-3101Wnp routine ecg w/least 12 lds w/i&r Nicholas Martinez MD Work Phone: Start: 09-53-3889Sgqbzgtkbh microscopic onlyNicholas Martinez MD Work Phone: Start: 90-54-3974Xhabz dip stick/tablet rgnt auto w/o microscopyNicholas Martinez MD Work Phone: Start: 56-45-6547Bjgfk foot complete minimum 3 views Jessica Villaseñor MD Work Phone: Start: 99-00-7110Kpzsq of acetaminophenJessica Villaseñor MD Work Phone: Start: 16-34-0277Kmjsc of ethanolJessica Villaseñor MD Work Phone: Start: 79-49-7469Lpjce of salicylateJessica Villaseñor MD Work Phone: Start: 66-24-4318Zimoejfqswrzc metabolic panelJessica Villaseñor MD Work Phone: Start: 42-17-3789Kutzzlnwlctzaa aspir&/inj major jt/bursa w/o usAjessica Andrea MD Work Phone (unformatted): [phone]: 69-71-9062Vwf prsmptv pthgnc organism scrn w/colony estimjCharles S Florentin DO Work Phone: Start: 45-08-2168DOPGN METABOLIC PANEL W/ REFLEX TO MG FOR LOW KAndrew Thomas Bertrand PA-C Work Phone: Start: 64-24-4113Wsix screen quantitative vancomycin Marisol Andrea MD Work Phone (unformatted): [phone]: 78-74-0244Tojdpzibg serum plasma/whole bloodMckayla Bertrand PA-C Work Phone: Start: 41-47-7634Wjzndyyrbm exam chest single view Marimar Ren MD Work Phone: Start: 19-44-3746Bkpuv of thyroid stimulating hormone tshMarimar Ren MD Work Phone: Start: 09-97-4350KINIH METABOLIC PANEL W/ REFLEX TO MG FOR LOW Erin Ren MD Work Phone: Start: 60-14-5278Y-reactive proteinMarimar Ren MD Work Phone: Start: 20-75-2462KOVZMTM, BLOOD 1Smargarette Ren MD Work Phone: Start: 42-10-2009FKAFXEK, BLOOD 1Smargarette Ren MD Work Phone: Start: 94-02-6488DHJJP METABOLIC PANEL W/ REFLEX TO MG FOR LOW KTamara L Tobian COMMERCIAL ANNOUNCER - [employer] Work Phone: Start: 76-53-5237Dxab screen quantitative vancomycin Cathleen L Tobian COMMERCIAL ANNOUNCER - [employer] Work Phone: Start: 64-93-3017OFJYE METABOLIC PANEL W/ REFLEX TO MG FOR LOW GENEVAjonoelmer Gela FAUSTIN Work Phone: Start: 65-68-2906Fornn count complete auto&auto difrntl wbcMarimar Ren MD Work Phone: Start: 23-10-5802Q-reactive proteinMarimar Ren MD Work Phone: Start: 23-97-3996QVUAJJN, BLOOD 1Ajessica Andrea MD Work Phone (unformatted): [phone]: 30-52-7535Ltcu count misc body fluids w/differential countSean Laughlin DO Work Phone: Start: 05-40-6356Bkpeaqr id light microscopy shyam tiss/any fluidSean Laughlin DO Work Phone: Start: 12-16-2021 End: 14-83-6361Dvgt count misc body fluids w/differential countSean Laughlin DO Work Phone: Start: 12-16-2021 End: 44-08-6344Dhzjvus id light microscopy shyam tiss/any fluidSean Laughlin DO Work Phone: Start: 94-98-0226Mhbht shoulder complete minimum 2 viewsZachary W Balderas DO Work Phone: Start: 12-16-2021 End: 13-11-6665Hvp-scan xtr veins unilateral/limited studyWapiero Ren MD Work Phone: Start: 38-55-0474OVIYV METABOLIC PANEL W/ REFLEX TO MG FOR LOW KAndrew Thomas CONNELLC Work Phone: Start: 06-03-5696Povwh count complete auto&auto difrntl wbcMckayla Bertrand PA-C Work Phone: Start: 67-68-9584QWQBRXZ, BLOOD 1Arjordana Andrea MD Work Phone (unformatted): [phone]: 22-61-8814Pulesxa catheterization Hemiary Guerrero MD Work Phone: Start: 23-98-3265Fgvheyimow other sourceAndhamzah Bertrand PA-C Work Phone: Start: 78-64-0248Qhayx count complete auto&auto difrntl wbcMckayla Bertrand PA-C Work Phone: Start: 14-94-1026Bslf screen quantitative vancomycin Mckayla Bertrand PA-C Work Phone: Start: 33-05-5320UYINB METABOLIC PANEL W/ REFLEX TO MG FOR LOW KChristopher M Dmitryuger DO Work Phone: Start: 10-62-7208Ieqbjfczins timeChristopher Thomas Bennettr DO Work Phone: Start: 12-13-2021 End: 40-95-0560RYJMWFI, BLOOD 1Taherbie Moran COMMERCIAL ANNOUNCER - [employer] Work Phone: Start: 51-99-8310Ccnxbg dgradj products d-dimer quantitativeWapiero Ren MD Work Phone: Start: 00-88-5859BHVQHTUS PLATELET FRACTIONWapiero Ren MD Work Phone: Start: [phone] wrist complete minimum 3 views [facility] COMMERCIAL ANNOUNCER - UTILITY 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 Work Phone: Start: [phone] of magnesiumChristopher M Hauger DO Work Phone: Start: [phone] METABOLIC PANEL W/ REFLEX TO MG FOR LOW KChristopher M Hauger DO Work Phone: Start: 92-42-4492V-reactive proteinChristopher M Hauger DO Work Phone: Start: 75-74-8060PNLXLXZZ REJECTIONChristopher M Hauger DO Work Phone: Start: 85-84-8862Pdlqnzzvx of Infusion Device into Superior Vena Cava, Percutaneous ApproachDR EMY KAHTARRStart: 93-33-2260Bdbri dip stick/tablet rgnt auto w/o microscopySteven D Meng PA-C Work Phone: Start: 19-41-2503Ho thorax w/contrast materialSteven D Meng PA-C Work Phone: Start: 37-52-1508Nx cervical spine w/o contrast materialSteven D Meng PA-C Work Phone: Start: 88-83-0504Ly head/brain w/o contrast material Yareli D Meng PA-C Work Phone: Start: 80-74-2687Wlwey of lipaseSteven D Meng PA-C Work Phone: Start: 46-87-7588BXHVN METABOLIC PANEL W/ REFLEX TO MG FOR LOW KSteven D [employer] Work Phone: Start: 71-49-5329Ijjpjgi function panelSteven D [employer] Work Phone: Start: 40-33-4353Lgs routine ecg w/least 12 lds w/i&r Yareli D [employer] Work Phone: Start: 76-22-1959Wuu-scan xtr veins complete bilateral studySteven D [employer] Work Phone: Start: 90-52-6168GIRVT GAS, ARTERIALRichPepperweed Consulting Work Phone: Start: 18-01-4626Jd thorax w/contrast materialBurnett Medical CenterPepperweed Consulting Work Phone: Start: 78-42-7838Eoaii of troponin quantitativeBurnett Medical CenterPepperweed Consulting Work Phone: Start: 65-45-0804QIPZN-19Picurio Work Phone: Start: 29-87-0317Yelimokrqsy peptideRichPepperweed Consulting Work Phone: Start: 82-03-3547Iync screen class list Sofi Fitzgerald Work Phone: start: 70-08-4794Szbdp of ethanolJaida Fitzgerald Work Phone: Start: 32-64-9290Zxhny of troponin quantitativeJaida Fitzgerald Work Phone: Start: 53-50-1377Nsvsy metabolic panel calcium total Jaida Fitzgerald Work Phone: start: 31-77-9823Jwezf count complete auto&auto difrntl wbcJaida Fitzgerald Work Phone: Start: 74-40-0910Pkgetae function panelJaida Fiztgerald Work Phone: Start: 61-30-7604Teemqhqhgb exam chest single view Jaida Fitzgerald Work Phone: start: 22-90-2099Pfa routine ecg w/least 12 lds w/i&r Jaida Fitzgerald Work Phone: Plan of Treatment DateCare ActivityDetailAuthorStart: 01-27-2026 End: 05-35-1760Hlhjzcg encounter /19/2026 1:00 PM EDT Office Visit [facility] [address] [place] [address] Hilton Boyd MD [address] [place] [address] M[facility]SAEL Hanson EndocrinologyStart: 07-29-2025 End: 69-01-6732Perhbyvxqhb [Units/volume] in Serum or PlasmaNONH Healthcare Comment on above:Expected: 07/29/2025 (Approximate), Expires: 07/29/2026Start: 07-29-2025 End: 53-26-7411Pvbcsodyb (T4) free [Mass/volume] in Serum or PlasmaT4, free Lab Routine Anti-TPO antibodies present Abnormal thyroid function test Expected: 07/29/2025 (Approximate), Expires: 07/29/2026Barnes-Jewish HospitalComment on above: Expected: 07/29/2025 (Approximate), Expires: 07/29/2026Start: 07-29-2025 End: 34-85-3564Luslwzzfomjejzac (T3) Free [Mass/volume] in Serum or PlasmaT3, free Lab Routine Anti-TPO antibodies present Abnormal thyroid function test Expected: 07/29/2025 (Approximate), Expires: 07/29/2026NOResearch [facility] Work Phone: Comment on above:Expected: 07/29/2025 (Approximate), Expires: 07/29/2026Start: 07-29-2025 End: 88-95-3577Xwialos encounter tdqfleyba84/18/2025 1:00 PM EDT Office Visit [facility] [address] [place] [address] Hilton Boyd MD [address] [place] [address] Phillip Hanson EndocrinologyComment on above:ArrivedStart: 26-83-5365Krfmzjvyw vaccinationFlu vaccine (#1)[facility]ITALStart: 49-30-9373Xshgziisvu measurementCreatinine monitoring [facility] Hospitalart: 49-25-2900Fftjuhkhy monitoringPotassium monitoringThe Christ HospitalStart: 09-05-2022 End: 64-57-5705Osjohfs encounter /26/2022 Office Visit Cardiothoracic Surgery Carter Espinoza MD [address] [phone] [facility] Cardiothoracic Surgical AsscStart: 00-68-4746Etyogzxsr vaccinationThe Christ HospitalStart: 07-09-2022 End: 49-05-2268Vqpbtdp encounter procedureInfectious Disease Associates of [facility], Inc.Start: 06-27-2022 End: 79-65-6313Lsceszb encounter fqihnfllk90/17/2022 Office Visit Infectious Diseases Marisol Andrea MD [address] [place] [address] [phone] (Work) [facility] Start: 05-23-2022 End: 00-68-8852Zynwmcm encounter gkyfxkdck18/13/2022 Office Visit Podiatry Tip Grewal, DPThomas [address] [place] [address] [facility] PodiatryStart: 03-21-2022 End: 94-36-1380Pwghhnl encounter vvaucugtj57/11/2022 Office Visit Infectious Diseases Marisol Andrea MD [address] [facility], [address] [place] [phone] (Work) [facility] Start: 03-01-2022 End: 83-12-5612LFNF Complete 2D W Doppler W ColorECHO Complete 2D W Doppler W Color Echocardiography Routine MRSA bacteremia Moderate tricuspid regurgitation Expected: 03/01/2022 (Approximate), Expires: 01/29/2023[facility] Work Phone: comment on above:Expected: 03/01/2022 (Approximate), Expires: 01/29/2023Start: 02-28-2022 End: 17-23-8129Xcmwpyo encounter cagxkfrvx48/20/2022 Office Visit Cardiothoracic Surgery Carter Espinoza MD [address] [facility] [address] [facility] [place] [address] [facility] Hospitalor[facility] AsscStart: 02-26-2022 End: 83-44-0767Evmoikh encounter qhrliwdil96/18/2022 Office Visit Podiatry Tip Grewal DPM [address] [place] [address] [facility] PodiatryStart: 02-16-2022 End: 52-14-5462CE CHEST WO CONTRASTCT CHEST WO CONTRAST Imaging Routine Septic embolism (HCC) Expected: 02/16/2022, Expires: 01/30/2023[facility] Work Phone: comment on above:Expected: 02/16/2022, Expires: 01/30/2023Start: 01-24-2022 End: 15-83-0773Mbivkcq encounter lsxgkrmte11/16/2022 Office Visit Cardiothoracic Surgery Carter Espinoza MD [address] [facility] [address] [facility] [place] [address] [facility] Hospitaloracic Surgical AsscStart: 01-23-2022 End: 82-20-4547AXQC Complete 2D W Doppler W ColorECHO Complete 2D W Doppler W Color Echocardiography Routine Acute bacterial endocarditis Expected: 01/23/2022 (Approximate), Expires: 12/19/2022[facility] HospitalIQzone Phone: Comment on above:Expected: 01/23/2022 (Approximate), Expires: 12/19/2022Start: 01-23-2022 End: 25-80-3300Ftgvj Drug ScreenUrine Drug Screen Lab Routine Acute bacterial endocarditis Septic embolism (HCC) Heroin abuse (HCC)Expected: 01/23/2022 (Approximate), Expires: 12/19/2022[facility] Work Phone: comment on above:Expected: 01/23/2022 (Approximate), Expires: 12/19/2022Start: 01-22-2022 End: 83-41-4238Yukavat encounter xglsizyzw06/14/2022 Office Visit Infectious Diseases Marisol Andrea MD [address] [facility], [address] [place] [phone] (Work) [facility], [facility]. Start: 01-17-2022 End: 21-88-7309OV CHEST WO CONTRASTCT CHEST WO CONTRAST Imaging Routine Acute bacterial endocarditis Septic embolism (HCC) Expected: 01/17/2022, Expires: 12/20/2022[facility] [employer] Phone: comment on above:Expected: 01/17/2022, Expires: 12/20/2022Start: 01-03-2022 End: 21-05-9733Kyqxwlz, Blood 1Culture, Blood 1 Microbiology Routine Septic embolism (HCC) MRSA bacteremia Expected: 01/03/2022, Expires: 12/20/2022[facility] Phone: comsbst on above:Expected: 01/03/2022, Expires: 12/20/2022Start: 76-07-0003Wrywi panelThe Christ HospitalStart: 12-29-2021 End: 74-85-5474Hsslfns encounter nizriiiqi03/18/2022 Appointment OncologySTVZ 3C Med SurgStart: 12-22-2021 End: 87-37-2611Zwyvroj encounter yreoatesc88/11/2022 Appointment OncologySTVZ 3C Med SurgStart: 07-50-8896Ouwsbnwya vaccinationFlu vaccine (#1)[facility]: 05-89-4549Lisblnhim vaccinationFlu vaccine (#1)[facility]: 54-58-5848EQgR/Tdap/Td vaccine (1 - Tdap)DTaP/Tdap/Td vaccine (1 - Tdap)[facility]: 20-19-2612Plnunnjaw A vaccine (1 of 2 - Risk 2-dose series) Hepatitis A vaccine (1 of 2 - Risk 2-dose series)[facility]: 47-20-5263Ekylbrmmy B vaccine (1 of 3 - Risk 3-dose series)Hepatitis B vaccine (1 of 3 - Risk 3-dose series)[facility]: 53-75-6666FSP screeningHIV screenWexner Medical Center: 95-93-3766BXLZX-19 Vaccine (1)COVID-19 Vaccine (1)[facility] Work Phone: start: 67-57-8408Fygvewazwo ScreenDepression Screen [facility]: 58-38-1919Gcqosfxpwala 0-64 years Vaccine (1 - PCV) Pneumococcal 0-64 years Vaccine (1 - PCV)[facility]: 90-65-4352Uhspxatmylll 0-64 years Vaccine (1 of 2 - PPSV23)Pneumococcal 0-64 years Vaccine (1 of 2 - PPSV23)[facility]: 70-01-5689GXDNZ-19 Vaccine (1) COVID-19 Vaccine (1)[facility]: 83-09-8978Ckiltjisr A vaccine (1 of 2 - Risk 2-dose series)Hepatitis A vaccine (1 of 2 - Risk 2-dose series)[facility]: 13-39-3933Gpzdkocnv vaccine (1 of 2 - 2-dose childhood series)Varicella vaccine (1 of 2 - 2-dose childhood series)[facility]: 20-18-3960UHWGS-19 Vaccine (#1)COVID-19 Vaccine (#1)[facility]: 1980 Hepatitis B vaccine (1 of 3 - 3-dose series)Hepatitis B vaccine (1 of 3 - 3-dose series)[facility] appruptStart: 82-27-9967Uwsflolor C screeningHepatitis C screenRamsay, [place] End: 83-11-6592Frcof Metabolic Panel w/ Reflex to MGBasic Metabolic Panel w/ Reflex to MG Lab Routine Daily for 3 Days starting 06/20/2022 until 06/22/2022, 2 completedBON [employer] Phone: comment on above:Daily for 3 Days starting 06/20/2022 until 06/22/2022, 2 completed End: 67-34-6057Otwx Fluid Cell Count with DifferentialAvita Health System Ontario HospitalIQzone Phone: comment on above:One Time for 1 Occurrences starting 12/20/2021 until 2C-reactive proteinC-Reactive Protein Lab Timed Every Other Day until discontinued starting 12/17/2021[facility] Hospital[facility] Phone: comwzzr on above:Every Other Day until discontinued starting 2C-reactive proteinC-Reactive Protein Lab Add-On Q48H until discontinued starting 2BON [employer] Phone: comcfot on above:Q48H until discontinued starting 05/06/2022 End: 20-89-0888F-reactive proteinBON [employer] Phone: comxxmj on above:Once for 1 Occurrences starting 05/07/2022 until 05/07/2022 End: 24-34-7620Nawfyoodqoxoxsl and angiography procedure details panelCardiac Catheterization Cardiac Cath Routine One Time for 1 Occurrences starting 12/15/2021 until 12/15/2021[employer] Phone: Comment on above:One Time for 1 Occurrences starting 12/15/2021 until 12/15/2021 End: 92-32-4537Xenfcmvnkkdhlrw and angiography procedure details panelCardiac Catheterization Cardiac Cath Routine One Time for 1 Occurrences starting 01/24/2022 until 01/24/2022[facility] Phone: combfdd on above:One Time for 1 Occurrences starting 01/24/2022 until 01/24/2022 End: 92-70-9431WYO panel - Blood by Automated countCBC Lab Routine Daily for 3 Days starting 06/20/2022 until 06/22/2022, 2 completedBON [employer] Work Phone: comment on above:Daily for 3 Days starting 06/20/2022 until 06/22/2022, 2 completedComprehensive metabolic 2000 panel - Serum or [facility] HospitalComprehensive metabolic 2000 panel - Serum or [facility] Memorial HospitalCulture, Anaerobic and Aerobic [employer] Work Phone: Culture, Anaerobic and AerobicCulture, Anaerobic and Aerobic Microbiology Routine 12/20/2021 2:15 PM [employer] Phone: culture, Blood 1Culture, Blood 1 Microbiology Routine 12/17/2021 5:47 AM [employer] Phone: culture, Blood 1Culture, Blood 1 Microbiology STAT 12/18/2021 4:15 PM [employer] Phone: Culture, Blood 1Culture, Blood 1 Microbiology STAT 12/19/2021 5:43 AM [employer] Phone: End: 01-80-9957Nshrwyl, Blood 1MTuckerNuck Phone: Comment on above:One Time for 1 Occurrences starting 01/20/2022 until 2Culture, Blood 1Culture, Blood 1 Microbiology STAT 01/28/2022 1:31 PM [employer]DS[employer]3 Work Phone: End: 44-47-9766Wbrcchn, Blood 1B[employer] Phone: comlpwu on above:One Time for 1 Occurrences starting 05/05/2022 until 05/05/2022 End: 35-11-1152Xyzxsyc, Blood 1BON [employer] Phone: comvmsn on above:Once for 1 Occurrences starting 05/17/2022 until 05/17/2022 End: 28-14-2357Kvbrkwz, Blood 1BON [employer] Phone: comment on above:Once for 1 Occurrences starting 06/13/2022 until 06/13/2022 End: 67-21-3884Nksojgp, Blood 2BON [employer] Phone: comsnuf on above:One Time for 1 Occurrences starting 05/05/2022 until 05/05/2022 End: 04-53-8396Hsomhfe, UrineBON [employer] Phone: comment on above:One Time for 1 Occurrences starting 05/05/2022 until 05/05/2022 End: 18-98-6706Ggve screen multi urineDrug screen multi urine Lab Routine One Time for 1 Occurrences starting 01/10/2022 until 01/10/2022[facility] Phone: comment on above:One Time for 1 Occurrences starting 01/10/2022 until 01/10/2022EKG 12 LeadAvita Health System Ontario HospitalrFactr, Inc.[place] End: 62-62-1191MVP 12 LeadEKG 12 Lead ECG Routine Tomorrow AM for 1 Occurrences starting 01/31/2022 until 01/31/2022[facility] Phone: comspji on above:Tomorrow AM for 1 Occurrences starting 01/31/2022 until 01/31/2022EKG 12 LeadEKG 12 Lead ECG Routine 01/30/2022 8:47 AM EDSelect Medical Specialty Hospital [facility] [email or web address] Work Phone: End: 46-46-3197Gxylelf function 1999 panel - Serum or PlasmaHepatic Function Panel Lab Routine 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 - for 16 Occurrences starting 01/30/2022 until 03/02/2022[facility] Phone: comcoqb on above:3 x per week - for 16 Occurrences starting 01/30/2022 until 03/02/2022 End: 74-38-8482Cgmtiul function 1999 panel - Serum or PlasmaHepatic Function Panel Lab Routine 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, 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 for 6 Occurrences starting 06/19/2022 until 06/19/2023ON [employer] Phone: comment on above:weekly for 6 Occurrences starting 06/19/2022 until 06/19/2023Hepatitis A virus Ab [Presence] in Serum by ImmunoassayClermont County HospitalHestockton state hospital B core antibody measurementMercer County Community Hospital B core antibody measurement, IgM typeClermont County Hospital End: 51-71-4186Wxbjublac B Surface AntigenAvita Health System Ontario HospitalIQzone Phone: comment on above:One Time for 1 Occurrences starting 01/10/2022 until 01/10/2022Hepatitis B virus e Ab [Presence] in Serum or Plasma by ImmunoassayClermont County HospitalHestockton state hospital B virus e Ag [Presence] in Serum or Plasma by ImmunoassayClermont County HospitalHestockton state hospital B virus surface Ab [Presence] in SerumClermont County Hospital End: 70-19-1750Hnqlpuwcd C AntibodyAvita Health System Ontario HospitalIQzone Phone: comwopn on above:One Time for 1 Occurrences starting 01/10/2022 until 01/10/2022 End: 05-72-1468Kbaeszio RT ProtocolInitiate RT Protocol Respiratory Care Routine Continuous until discontinued starting 06/19/2022 [employer] Phone: comoyxu on above:Continuous until discontinued starting 06/19/2022Intermittent pulse oximetryPulse Oximetry Spot Check Respiratory Care Routine As Needed until discontinued starting 12/13/2021[facility] Phone: comenzn on above:As Needed until discontinued starting 12/13/2021Intermittent pulse oximetryPulse Oximetry Spot Check Respiratory Care Routine As Needed until discontinued starting 01/20/2022[facility] Phone: comgjtd on above:As Needed until discontinued starting 01/20/2022Intermittent pulse oximetryPulse Oximetry Spot Check Respiratory Care Routine Daily until discontinued starting 06/15/2022 [employer] Phone: comgpvt on above:Daily until discontinued starting 06/15/2022Measurement of Hepatitis delta virus antibodyClermont County HospitalNasal Cannula OxygenNasal Cannula Oxygen Respiratory Care Routine Daily until discontinued starting 06/15/2022 [employer] Phone: commsqb on above:Daily until discontinued starting 2Oxygen therapy [Minimum Data Set]Initiate Oxygen Therapy Protocol Respiratory Care Routine Daily until discontinued starting 12/13/2021[facility] Hospital[facility] Phone: Comment on above:Daily until discontinued starting 2Oxygen therapy [Minimum Data Set]Initiate Oxygen Therapy Protocol Respiratory Care Routine As Needed until discontinued starting 01/20/2022[facility] Phone: comment on above:As Needed until discontinued starting 01/20/2022xygen therapy [Minimum Data Set]Initiate Oxygen Therapy Protocol Respiratory Care Routine As Needed until discontinued starting 05/06/2022 [employer] Phone: comzmbu on above:As Needed until discontinued starting 2Oxygen therapy [Minimum Data Set]Initiate Oxygen Therapy Protocol Respiratory Care Routine As Needed until discontinued starting 06/15/2022 [employer] Phone: comjcoc on above:As Needed until discontinued starting 2Oxygen therapy [Minimum Data Set]Initiate Oxygen Therapy Protocol Respiratory Care Routine As Needed until discontinued starting 06/16/2022 [employer] Phone: comqmda on above:As Needed until discontinued starting 06/16/2022 End: 90-71-8704CHQDMGPT MOUNTRAIL COUNTY HEALTH CENTERtuta.co Phone: comment on above:Once for 1 Occurrences starting 12/13/2021 until 12/13/2021espiratory care evaluation onlyRespiratory care evaluation only Respiratory Care Routine As Needed until discontinued starting 06/19/2022 [employer] Phone: comment on above:As Needed until discontinued starting 06/19/2022urgical PathologySurgical Pathology Lab Routine Release Upon Ordering for 1 Occurrences starting 01/26/2022[facility] [employer] Phone: comment on above:Release Upon Ordering for 1 Occurrences starting 01/26/2022 End: 66-23-4560KjfoppzlwoNxngafdrgh Lab Routine One Time for 1 Occurrences starting 01/10/2022 until 01/10/2022[facility] [employer] Phone: comment on above:One Time for 1 Occurrences starting 01/10/2022 until 01/10/2022[facility] End: 23-05-5759TIDFUCWITH, RANDOMVANCOMYCIN, RANDOM Lab Routine One Time for 1 Occurrences starting 12/21/2021 until 12/21/2021[facility] [employer] Phone: comment on above:One Time for 1 Occurrences starting 12/21/2021 until 12/21/2021 End: 28-04-0013Ocigg CultureWound Culture Microbiology Routine One Time for 1 Occurrences starting 05/06/2022 until 05/06/2022ON [email or web address] Phone: comment on above:One Time for 1 Occurrences starting 05/06/2022 until 05/06/2022 End: 43-73-4157Neyso Gram stainWound Gram stain Microbiology Routine One Time for 1 Occurrences starting 05/06/2022 until 05/06/2022ON [email or web address] Phone: comment on above:One Time for 1 Occurrences starting 05/06/2022 until 05/06/2022[facility] Payers DatePayer CategoryPayerPolicy [id number]-jsh [id number] 2021Medicaid (Managed Care)[place] [employer] [id number] 2.0.1.533781.3.57[id number] 2.840.1.395273.3.57[id number] 2.0.1.986295.3.57[id number] 2.840.1.702798.3.57[id number] 2.0.1.418710.3.57[id number] 2.840.1.757932.3.57[id number] 2.0.1.759623.3.57[id number] 2.16840.1.734288.3.57[id number] 2.0.1.627383.3.57[id number] 2.16840.1.149680.3.57[id number] 2.840.1.634990.3.579.2.1259 [id number] [id number] 2.16.840.1.383074.3.579.2.531 Social History DateTypeDetailFacilityStart: 12-16-2020 End: 96-35-5269Drqykmc smoking status NHISFormer smokerRamsay, [place] Start: 12-16-2020 End: 04-45-2587Relstlk use and exposureNever usedRamsay, [place]Start: 12-16-2020 End: 53-93-1565Ouzvkeu intakeCurrent non-drinker of alcohol (finding)[place], [place]Start: 09-12-5320Sgg Assigned At BirthNot on fileRamsay, [place]Start: 12-21-2021 End: 81-34-4130Wxgojwxa to SARS-CoV-2 (event)Not sureRamsay, KYHistory of tobacco useCurrent smokerCUMBERLAND HOSPITAL [employer] Work Phone: start: 11-12-2023 End: 26-95-4031Tlklyal of Social functionBON MARIETTA MEMORIAL HOSPITALStart: 11-12-2023 End: 12-75-0169Telvcvq use panelRIVERSIDE WALTER REED HOSPITALStart: 73-85-0777Erpjnkx smoking status NHISUnknown if ever smokedKettering Health Springfieldex Male (finding)[facility] Health Springfieldtart: 88-37-8256Jtf Assigned At BirthMemorial Health System Marietta Memorial Hospitaltart: 48-59-5335Xbtkiws smoking status NHISNever smoked tobaccoNOMS HealthcareStart: 19-12-8863Bqsvsxj use and exposureUser of smokeless tobaccoNOMS HealthcareStart: 68-35-9861Flcqzytpc beverage intakeLifetime non-drinker (finding)[facility] Goals DatePatient GoalDesired Activity/State Clinical Notes 05-29-2021 to 07-29-2025 Note Date & ObqyNbenZjvtbkmz53-82-9524 History of Present illness Narrative* Hilton Boyd MD - 07/29/2025 1:00 PM EDT Tip Wright is a 45 y.o. male [...] A repeat thyroid function test will be conductedin 6 months to monitor any changes. 2. Hepatitis C: - History of hepatitis C. - Plans to retreat hepatitis C. Follow-up: Repeat thyroid function test in 6 months. Follow up in about 6 months (around 01/26/2026). documented in this encounterBarnes-Jewish HospitalSyajkcokwy26-10-3067 Evaluation note* Diagnosis Onset Date Resolution Status Admit Date Elevated liver enzymes acuteSeptember 2024 1:49pmHistory of hepatitis BacuteSeptember 2024 1:49pmHistory of hepatitis CacuteSeptember 2024 1:49pmHistory of intravenous drug useacuteSeptbanner [facility] 2024 1:49pmOpioid use disorder in remissionacuteptbanner [facility]field medical center 2024 1:49pm [facility] Work Phone: 1(235) 647-704907-18-2025 NoteSUBJECTIVE Reason for Visit: Tip Ansari is a 45 y.o. year old male patient being seen for hospital follow-up. HPI: Tip Ansari is a 45 y.o. 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 Was admitted recently this month to [facility] for dizziness, elevated troponin, concern for endocarditis. [...] Saturation 04/16/2023 24 UIBC (more content not included)...[facility] 01-30-2024 Hospital Discharge instructions* Discharge Instructions* Falguni Wan APRN - CNP - 01/30/2024 6:12 PM EDT Call [phone] ([phone]) to establish care for follow up. You can also call [facility] at [phone] to establish care. * Attachments The following attachments cannot be sent through Care Everywhere. * Influenza (Burundian) documented in this encounterBON MARIETTA [facility]ORIAL [facility]OSPITAL08-11-2022 History of Present illness Narrative* Clement Granger RN - 06/21/2022 4:36 PM EDT Discharged via ambulation with fiction writer to front door. Patient's aunt picking patient up. Patient left with belongings and dc instructions. [facility] at [facility]. * Clement Granger RN - 06/21/2022 4:11 PM EDT Patient up in room and in bed at intervals. States his aunt will pick him up. * Alberto Perez MD - 06/21/2022 11:24 AM EDT Images from the original note were not included. [facility] Office: [phone] Mikie Rodriguez DO, Theo Lerma DO, Stuart [...] Avila MD, Lyle Woods MD, Teresa Quintero, UTILITY AIRCREWMAN, Leslie Rao, UTILITY AIRCREWMAN, Ro Bernard, UTILITY AIRCREWMAN, Carter Charles, UTILITY AIRCREWMAN, Mckayla Bertrand, PA-C, Eli Fu, DNP, Keri Walker, UTILITY AIRCREWMAN, Sherrie Rea, UTILITY AIRCREWMAN, Deysi Pablo, UTILITY AIRCREWMAN, Shelli Menon, UTILITY AIRCREWMAN, Tika Tapia, UTILITY AIRCREWMAN, Cathleen Moran, SHIPPING PACKER, Razia Figueroa, DNP,Madalyn Julien, UTILITY AIRCREWMAN, Amie Richardson, UTILITY AIRCREWMAN, Mary Meléndez, UTILITY AIRCREWMAN [facility] IN-PATIENT SERVICE [facility] Progress Note 06/21/2022 11:24 AM Name: Tip Ansari Acct: [id number] Room: [facility] Day: 6 Admit Date: 06/15/2022 4:29 PM [...] repeat CT chest 03/05 but went to long-term due to a IVDU relapse 05/06/22 Review [...] (HCC), Depression, and Drug addiction ([facility]). Social History: reports that he has quit smoking. He has never used smokeless tobacco. He reports current drug use. Drugs: Cocaine, Opiates , Marijuana ([place]), and Methamphetamines (Crystal Meth). Hereports that he [...] Value Date/Time PHART 7.380 12/16/2020 09:20 AM ZMV1HUH 44.5 12/16/2020 09:20 AM PO2ART 94.4 12/16/2020 09:20 AM ZOR6MZP 25.7 12/16/2020 09:20 AM NBEA NOT REPORTED 12/16/2020 09:20 AM PBEA 0.3 12/16/2020 09:20 AM [id number] 97.1 12/16/2020 09:20 AM FIO2 28 12/16/2020 [...] (HCC) 06/17/2022 Yes IVDU (intravenous drug user) 06/21/2022 Yes SIRS (systemic inflammatory response syndrome) (HCC) [...] but this cannot be administered in current long-term Normocytic normochromic anemia : monitor hgb, transfuse [...] follow-up DC order in place, pt needs senior living information Cannot go to SNF as he [...] up plan to get Diflucan. Patient agrees. Assistant Women'S Rowing Coach attempted to contact outpatient pharmacy at 1800 but they were closed. * Alberto Perez MD - 06/20/2022 10:46 AM EDT Images from the original note were not included. [facility] Office: [phone] Mikie Rodriguez DO, Theo Lerma DO, Stuart [...] Avila MD, Lyle Woods MD, Teresa Quintero, UTILITY AIRCREWMAN, Leslie Rao, UTILITY AIRCREWMAN, Ro Bernard, UTILITY AIRCREWMAN, Carter Charles, UTILITY AIRCREWMAN, KO HunterC, Eli Fu, DNP, Keri Walker, UTILITY AIRCREWMAN, Sherrie Rea, UTILITY AIRCREWMAN, Deysi Pablo, UTILITY AIRCREWMAN, Shelli Menon, UTILITY AIRCREWMAN, Tika Tapia, UTILITY AIRCREWMAN, Cathleen Moran, SHIPPING PACKER, Razia Figueroa, DNP,Madalyn Julien, UTILITY AIRCREWMAN, Amie Richardson, UTILITY AIRCREWMAN, Mary Meléndez, UTILITY AIRCREWMAN [facility] IN-PATIENT SERVICE [facility] Progress Note 06/20/2022 10:46 AM Name: Tip Ansari Acct: [id number] Room: [address] [place] [address] Day: 5 Admit Date: 06/15/2022 4:29 PM [...] repeat CT chest 03/05 but went to long-term due to a IVDU relapse 05/06/22 Review [...] drug use. Drugs: Cocaine, Opiates , Marijuana ([place]), and Methamphetamines (Crystal Meth). Hereports that he [...] Value Date/Time PHART 7.380 12/16/2020 09:20 AM CII6PCM 44.5 12/16/2020 09:20 AM PO2ART 94.4 12/16/2020 09:20 AM GJC8VLE 25.7 12/16/2020 09:20 AM NBEA NOT REPORTED 12/16/2020 09:20 AM PBEA 0.3 12/16/2020 09:20 AM [id number] 97.1 12/16/2020 09:20 AM FIO2 28 12/16/2020 [...] species without acute organ dysfunction ([facility]) 06/17/2022 Yes IVDU (intravenous drug user) 06/20/2022 Yes SIRS (systemic inflammatory response syndrome) ([facility]) 06/20/2022 Yes Acute septic pulmonary embolism without acute cor pulmonale ([facility]) 06/20/2022 Yes Elevated procalcitonin 06/20/2022 Yes CRP elevated 06/20/2022 Yes Septic embolism ([facility]) 06/17/2022 Yes Normocytic normochromic anemia 06/17/2022 Yes Subacute right-sided infective endocarditis 06/17/2022 Yes 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[facility]) 06/20/2022 Yes Plan: 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 Infectious disease following. Not candidate for valvular repair IVDA: pt without evidence of withdrawal, has been on suboxone in past, but this cannot be administered in current long-term Normocytic normochromic anemia : monitor hgb, transfuse [...] from the original note were not included. [employer] Occupational Therapy Not Seen Note DATE: 06/20/2022 [...] were not included. [facility] - Infectious diseases evaluation Progress Note admission date 06/15/2022 reason for consultation: sepsis Impression : Current: Bilat septic pulm emboli Occasional hemoptysis Endocarditis TV, vegetation larger CRP procal elevation Chills and fever in long-term Relapsed drug use SIRS + tachycardia and [...] repeat CT chest 03/05 but went to long-term Allergy to PNC as a child, but [...] Unclear if he ll go back to long-term or will be released Infection Control Recommendations [place] Precautions Contact Isolation Antimicrobial Stewardship Recommendations Simplification [...] repeat CT chest 03/05 but went to long-term due to a IVDU relapse 05/06/22 Called from long-term 06/15 for chills headaches getting worse and [...] CALCANEOUS performed by Tip Grewal DPM at [facility] OR FOOT SURGERY Left 01/26/2022 [...] use: Yes Types: Cocaine, Opiates , Marijuana (North), Methamphetamines (Crystal Meth) Comment: last use 05/05 [...] Saenz MD PGY-1, Department of Internal Medicine [facility], [place], [place] I have discussed the care of the patient, including pertinent history and exam findings, with the resident. I have seen and examined the patient and the hall elements of all parts of the encounter have been performed by me. I agree with the assessment, plan and orders as documented by the resident. Marisol Andrea, Infectious Diseases * Alberto Perez MD - 06/19/2022 1:10 PM EDT Images from the original note were not included. [facility] Office: [phone] Mikie Rodriguez DO, Theo Lerma DO, Stuart [...] Avila MD, Lyle Woods MD, Teresa Quintero, UTILITY AIRCREWMAN, Leslie Rao, UTILITY AIRCREWMAN, Ro Bernard, UTILITY AIRCREWMAN, Carter Charles, UTILITY AIRCREWMAN, KO HunterC, Eli Fu, FÉLIX, Keri Walker, UTILITY AIRCREWMAN, Sherrie Rea, UTILITY AIRCREWMAN, Deysi Pablo UTILITY AIRCREWMAN, Shelli Mneon, UTILITY AIRCREWMAN, Tika Tapia, UTILITY AIRCREWMAN, Cathleen Moran, SHIPPING PACKER, Razia Figueroa, FÉLIX,Madalyn Julien, PABLO, Amie Richardson, UTILITY AIRCREWMAN, Mary Meléndez, UTILITY AIRCREWMAN [facility] IN-PATIENT SERVICE [facility] Progress Note 06/19/2022 1:11 PM Name: Tip Ansari Acct: [id number] Room: [address] [place] [address] Day: 4 Admit Date: 06/15/2022 4:29 PM [...] repeat CT chest 03/05 but went to long-term due to a IVDU relapse 05/06/22 Review [...] drug use. Drugs: Cocaine, Opiates , Marijuana (North), and Methamphetamines (Crystal Meth). Hereports that he [...] RDW, PLT, MPV, SEDRATE, CRP, INR, DDIMER, WJ1AAJBO, LABABSO in the last 72 hours. Invalid [...] Value Date/Time PHART 7.380 12/16/2020 09:20 AM PYU3SAZ 44.5 12/16/2020 09:20 AM PO2ART 94.4 12/16/2020 09:20 AM BMF9SIV 25.7 12/16/2020 09:20 AM NBEA NOT REPORTED 12/16/2020 09:20 AM PBEA 0.3 12/16/2020 09:20 AM I5KXCYGK 97.1 12/16/2020 09:20 AM FIO2 28 12/16/2020 [...] species without acute organ dysfunction ([facility]) 06/17/2022 Yes IV drug abuse ([facility]) 06/17/2022 Yes Septic embolism ([facility]) 06/17/2022 Yes Normocytic normochromic anemia [...] but this cannot be administered in current long-term Normocytic normochromic anemia : monitor hgb, transfuse as need for symptomatic anemia or hgb <7 COPD not in acute exacerbation : nebulizer prn PTOT Diet as tolerated Labs, imaging, ECG reviewed PTOT DC planning to follow - we need to figure out with CM where pt can go with IV abx - which will be coordinated with nurse @ [facility] - may need transfer to [facility] long-term where IV abx can be administered Alberto Perez MD 06/19/2022 1:11 PM * Alexei Mendoza [facility] - 06/19/2022 11:55 AM EDT [facility] Pharmacokinetic Monitoring Service - Vancomycin [...] were not included. [facility] - Infectious diseases evaluation Progress Note admission date 06/15/2022 reason for consultation: sepsis Impression : Current: Bilat septic pulm emboli Occasional hemoptysis Endocarditis TV, vegetation larger CRP procal elevation Chills and fever in long-term Relapsed drug use SIRS + tachycardia and [...] repeat CT chest 03/05 but went to long-term Allergy to PNC as a child, but [...] Unear if he ll go back to long-term or will be released Infection Control Recommendations [place] Precautions Contact Isolation Antimicrobial Stewardship Recommendations Simplification [...] repeat CT chest 03/05 but went to long-term due to a IVDU relapse 05/06/22 Called from long-term 06/15 for chills headaches getting worse and [...] Pro calcitonin -0.2 Micro: BC 8-negative BC 8/3-negative Urine culture 06/16 - negative -06/16/2022 aspirated [...] CALCANEOUS performed by Tip Grewal DPM at [facility] OR FOOT SURGERY Left 01/26/2022 [...] use: Yes Types: Cocaine, Opiates , Marijuana ([place]), Methamphetamines (Crystal Meth) Comment: last use 05/05 [...] Saenz MD PGY-1, Department of Internal Medicine [facility], [place], [place] I have discussed the care of [...] Torres MD - 06/19/2022 2:38 AM EDT [facility] Office: [phone] Mikie Rodriguez DO, Theo Lerma DO, Stuart [...] Avila MD, Lyle Woods MD, Teresa Quintero, UTILITY AIRCREWMAN, Leslie Rao, UTILITY AIRCREWMAN, Ro Bernard, UTILITY AIRCREWMAN, Carter Charles, UTILITY AIRCREWMAN, Mckayla Bertrand PA-C, Eli Fu, DNP, Keri Walker, UTILITY AIRCREWMAN, Sherrie Rea, UTILITY AIRCREWMAN, Deysi Pablo, UTILITY AIRCREWMAN, Shelli Menon, UTILITY AIRCREWMAN, Tika Tapia, UTILITY AIRCREWMAN, Cathleen Moran, SHIPPING PACKER, Razia Figueroa, DNP,Madalyn Julien, UTILITY AIRCREWMAN, Amie Richardson, UTILITY AIRCREWMAN, Mary Meléndez, UTILITY AIRCREWMAN [facility] In-House Provider 06/19/2022 2:38 AM Name: Tip Ansari Acct: [id number] Room: IP Day: 4 Admit Date: 06/15/2022 [...] species without acute organ dysfunction ([facility]) 06/17/2022 Yes IV drug abuse (HCC) 06/17/2022 Yes Septic embolism ([facility]) 06/17/2022 Yes Normocytic normochromic anemia [...] Abscess, Chronic hepatitis C without hepatic coma ([facility]), COPD (chronic obstructive pulmonary disease) ([facility]), Depression, and Drug addiction ([facility]). Vitals: BP 114/82 Pulse 77 [...] RESPIRATORY CHRISTOPHER MODERATE GROWTH 06/16/2022 12:39 PM @MLHABGPO@ Radiology: XR CHEST (2 VW) Result Date: [...] from the original note were not included. [facility] Office: [phone] Mikie Rodriguez DO, Theo Lerma DO, Stuart Natarajan DO, Harpal Tran DO, Prashanth Sadler MD, Deana Raza MD, Florencia Canela MD, Tess Ford MD, Loedan Mak MD, Marimar Ren MD, Kyle BroussardDO, Juan Driver MD, oSphia Agustin DO, Jodi Bain MD, Palomo Drummond MD, Johann Rodriguez DO, Elvia Torres MD, Alberto Perez MD, Yuliana Saenz MD, Fabricio Syed DO,Radha Avila MD, Lyle Woods MD, Teresa Quintero, UTILITY AIRCREWMAN, Leslie Rao, UTILITY AIRCREWMAN, Ro Bernard, UTILITY AIRCREWMAN, Carter Charles, UTILITY AIRCREWMAN, KO HunterC, Eli Fu, DNP, Keri Walker, UTILITY AIRCREWMAN, Sherrie Rea, UTILITY AIRCREWMAN, Deysi Pablo UTILITY AIRCREWMAN, Shelli Menon, UTILITY AIRCREWMAN, Tika Tapia, UTILITY AIRCREWMAN, Cathleen Moran, SHIPPING PACKER, Razia Figueroa, DNP,Madalyn Julien, UTILITY AIRCREWMAN, Amie Richardson, UTILITY AIRCREWMAN, Mary Meléndez, UTILITY AIRCREWMAN [facility] IN-PATIENT SERVICE [facility] Progress Note 06/18/2022 2:40 PM Name: Tip Ansari Acct: [id number] Room: [address] [place] [address] Day: 3 Admit Date: 06/15/2022 4:29 PM [...] repeat CT chest 03/05 but went to long-term due to a IVDU relapse 05/06/22 Review [...] drug use. Drugs: Cocaine, Opiates , Marijuana ([place]), and Methamphetamines (Crystal Meth). Hereports that he [...] Value Date/Time PHART 7.380 12/16/2020 09:20 AM HXG8AVE 44.5 12/16/2020 09:20 AM PO2ART 94.4 12/16/2020 09:20 AM PUM4AOS 25.7 12/16/2020 09:20 AM NBEA NOT REPORTED 12/16/2020 09:20 AM PBEA 0.3 12/16/2020 09:20 AM [id number] 97.1 12/16/2020 09:20 AM FIO2 28 12/16/2020 [...] DO 06/18/2022 2:40 PM * Mindy Parada [facility] - 06/18/2022 12:16 PM EDT [facility] Pharmacokinetic Monitoring Service - Vancomycin Tip [...] were not included. [facility] - Infectious diseases evaluation Progress Note admission date 06/15/2022 reason for consultation: sepsis Impression : Current: Bilat septic pulm emboli Occasional hemoptysis Endocarditis TV, vegetation larger CRP procal elevation Chills and fever in long-term Relapsed drug use SIRS + tachycardia and [...] repeat CT chest 03/05 but went to long-term Allergy to PNC as a child, but [...] evidence of infectious seeding. Infection Control Recommendations [place] Precautions Contact Isolation Antimicrobial Stewardship Recommendations Simplification [...] repeat CT chest 03/05 but went to long-term due to a IVDU relapse 05/06/22 Called from long-term 06/15 for chills headaches getting worse and [...] CALCANEOUS performed by Tip Grewal DPM at [facility] OR FOOT SURGERY Left 01/26/2022 [...] use: Yes Types: Cocaine, Opiates , Marijuana ([place]), Methamphetamines (Crystal Meth) Comment: last use 05/05 [...] Saenz MD PGY-1, Department of Internal Medicine [facility] [place], [place] I have discussed the care of [...] from the original note were not included. [facility] Office: [phone] Mikie Rodriguez DO, Theo Lerma DO, Stuart [...] Avila MD, Lyle Woods MD, Teresa Quintero, UTILITY AIRCREWMAN, Leslie Rao, UTILITY AIRCREWMAN, Ro Bernard, UTILITY AIRCREWMAN, Carter Charles, UTILITY AIRCREWMAN, Mckayla Bertrand, PA-C, Eli uF, DNP, Keri Walker, UTILITY AIRCREWMAN, Sherrie Rea, UTILITY AIRCREWMAN, Deysi Pablo, UTILITY AIRCREWMAN, Shelli Menon, UTILITY AIRCREWMAN, Tika Tapia, UTILITY AIRCREWMAN, Cathleen Moran, SHIPPING PACKER, Razia Figueroa, DNP,Madalyn Julien, UTILITY AIRCREWMAN, Amie Richardson, UTILITY AIRCREWMAN, Mary Meléndez, UTILITY AIRCREWMAN [facility] IN-PATIENT SERVICE [facility] Progress Note 06/17/2022 3:17 PM Name: Tip Ansari Acct: [id number] Room: [address] [place] [address] Day: 2 Admit Date: 06/15/2022 4:29 PM [...] repeat CT chest 03/05 but went to long-term due to a IVDU relapse 05/06/22 Review [...] drug use. Drugs: Cocaine, Opiates , Marijuana ([place]), and Methamphetamines (Crystal Meth). Hereports that he [...] Net -1499.65 ml Labs: Hematology: Recent Labs 06/15/22173606/15/22184606/15/22232706/16/22 0842 WBC 10.5 -- -- -- RBC [...] Value Date/Time PHART 7.380 12/16/2020 09:20 AM NTO1AIA 44.5 12/16/2020 09:20 AM PO2ART 94.4 12/16/2020 09:20 AM PRL8UFM 25.7 12/16/2020 09:20 AM NBEA NOT REPORTED 12/16/2020 09:20 AM PBEA 0.3 12/16/2020 09:20 AM G0ICESFS 97.1 12/16/2020 09:20 AM FIO2 28 12/16/2020 [...] were not included. [facility] - Infectious diseases evaluation Progress Note admission date 06/15/2022 reason for consultation: sepsis Impression : Current: Bilat septic pulm emboli Occasional hemoptysis Chills and fever in long-term Relapsed drug use SIRS + tachycardia and [...] repeat CT chest 03/05 but went to long-term Allergy to PNC as a child, but [...] evidence of infectious seeding. Infection Control Recommendations [place] Precautions Contact Isolation Antimicrobial Stewardship Recommendations Simplification [...] repeat CT chest 03/05 but went to long-term due to a IVDU relapse 05/06/22 Called from long-term 06/15 for chills headaches getting worse and [...] CALCANEOUS performed by Tip Grewal DPM at [facility] OR FOOT SURGERY Left 01/26/2022 [...] use: Yes Types: Cocaine, Opiates , Marijuana ([place]), Methamphetamines (Crystal Meth) Comment: last use 05/05 [...] Guerrero MD PGY-3, Department of Internal Medicine [facility], [place], [place] Final assessment and plan pending discussion [...] were not included. [facility] - Infectious diseases evaluation Progress Note admission date 06/15/2022 reason for consultation: sepsis Impression : Current: Bilat septic pulm emboli Occasional hemoptysis Chills and fever in long-term Relapsed drug use SIRS + tachycardia and clammy New LBP and neck pain Left calcaneal osteoarthritis Recently: Left calcaneal osteomyelitis, septic bursitis left heel w I/D 01/26/22, candidemia albicans 01/21/22 TV endocarditis GIANFRANCO 01/24/22 treated w fluconazole Septic pulm emboli from MRSA septicemia 12/13/21 allergy to vanco w recurrent serotonin syndrome. Was planned for a repeat CT chest 03/05 but went to long-term Allergy to PNC as a child, but [...] a site of seeding Infection Control Recommendations [place] Precautions Contact Isolation Antimicrobial Stewardship Recommendations Simplification [...] repeat CT chest 03/05 but went to long-term due to a IVDU relapse 05/06/22 Called from long-term 06/15 for chills headaches getting worse and [...] CALCANEOUS performed by Tip Grewal DPM at [facility] OR FOOT SURGERY Left 01/26/2022 [...] use: Yes Types: Cocaine, Opiates , Marijuana ([place]), Methamphetamines (Crystal Meth) Comment: last use 05/05 [...] Saenz MD Office: Perfect serve / office [phone] ATTESTATION: I have discussed the case, including [...] the Echo Lab documented in this encounterBON HENRY MAY[facility] NEWHALL MEMORIAL HOSPITALNavendis Phone: [phone]) 763-708406-28-2022 History of Present illness Narrative* Ana Tiwari RN - 05/08/2022 11:36 AM EDT Patient given discharge instructions and follow up appointments and cam boot instructions. Patient verbalized understanding. * Alberto Perez MD - 05/08/2022 10:05 AM EDT Images from the original note were not included. [facility] Office: [phone] Mikie Rodriguez DO, Thoe Lerma DO, Stuart Natarajan DO, Harpal Tran [...] Bella CNP, Leslie Rao CNP, Ro Bernard UTILITY AIRCREWMAN, Carter Charles, UTILITY AIRCREWMAN, Mckayla Bertrand PA-C, Eli Fu, DNP, Keri Walker, UTILITY AIRCREWMAN, Sherrie Rea, UTILITY AIRCREWMAN, Deysi Pablo, UTILITY AIRCREWMAN, Cathleen Moran, SHIPPING PACKER, Razia Figueroa, FÉLIX, Madalyn Julien UTILITY AIRCREWMAN, Shelli Meonn UTILITY AIRCREWMAN, Amie Richardson, UTILITY AIRCREWMAN IN-PATIENT SERVICE [facility] Progress Note 05/08/2022 10:06 AM Name: Tip Ansari Acct: [id number] Room: 0240/0240-01 Day: 2 Admit Date: 05/06/2022 4:40 AM [...] drug use. Drugs: Cocaine, Opiates , Marijuana ([place]), and Methamphetamines (Crystal Meth). Hereports that he [...] Results Component Value Date PHART 7.380 12/16/2020 KUW6MPX 44.5 12/16/2020 PO2ART 94.4 12/16/2020 UBY3WEM 25.7 12/16/2020 NBEA NOT REPORTED 12/16/2020 PBEA 0.3 12/16/2020 P3WLUJBN 97.1 12/16/2020 FIO2 28 12/16/2020 Lab Results [...] IP CONSULT TO PODIATRY INPATIENT CONSULT TO TELEMARKETING FUNDRAISER CHEMICAL DEPENDENCY REFERRAL FOR SOCIAL SERVICE CONSULT Alberto Perez MD 05/08/2022 10:06 AM * Theo Lerma DO - 05/07/2022 5:54 PM EDT Images from the original note were not included. [facility] Office: [phone] Mikie Rodriguez DO, Theo Lerma DO, Stuart [...] Avila MD, Lyle Woods MD, Teresa Quintero, UTILITY AIRCREWMAN, Tika Tapia, UTILITY AIRCREWMAN, Abdirahman Bella,UTILITY AIRCREWMAN, Leslie Rao, UTILITY AIRCREWMAN, Ro Bernard, UTILITY AIRCREWMAN, Carter Charles, UTILITY AIRCREWMAN, DONOVAN Hunter-C, Eli Fu, DNP, Keri Walker, UTILITY AIRCREWMAN, Sherrie Rea, UTILITY AIRCREWMAN, Deysi Pablo, UTILITY AIRCREWMAN, Cathleen Moran, SHIPPING PACKER, Razia Figueroa, DNP, Madalyn Julien, UTILITY AIRCREWMAN, Shelli Menon, UTILITY AIRCREWMAN, Amie Richardson, UTILITY AIRCREWMAN IN-PATIENT SERVICE [facility] Progress Note 05/07/2022 6:09 PM Name: Tip Ansari Acct: [id number] Room: 0240/0240-01 Day: 1 Admit Date: 05/06/2022 4:40 AM PCP: No primary care provider on file. Code Status: Full Code Subjective: C/C: Left ankle pain and swelling Interval History Status: Malaise Withdrawing Nausea Not eating well Sweats Data Base Updates: Hyypdha96jk/dL IZD02ge/dL CREATININE0.62 Low mg/dL Calcium8.9mg/dL Gsmawb665efjk/L Potassium4.2 Brief History: As documented in the [...] drug use. Drugs: Cocaine, Opiates , Marijuana ([place]), and Methamphetamines (Crystal Meth). Hereports that he [...] Results Component Value Date PHART 7.380 12/16/2020 IIG7VVM 44.5 12/16/2020 PO2ART 94.4 12/16/2020 PZQ9VUQ 25.7 12/16/2020 NBEA NOT REPORTED 12/16/2020 PBEA 0.3 12/16/2020 C6VQJEWL 97.1 12/16/2020 FIO2 28 12/16/2020 Lab Results [...] suggested DVT prophylaxis Patient to return to long-term when stabilized IP CONSULT TO INFECTIOUS DISEASES IP CONSULT TO PODIATRY INPATIENT CONSULT TO TELEMARKETING FUNDRAISER CHEMICAL DEPENDENCY REFERRAL FOR SOCIAL SERVICE CONSULT Theo Lerma DO 05/07/2022 6:09 PM * Tariq Dumont MD - 05/07/2022 4:15 PM EDT Images from the original note were not included. [facility] - Progress Note Today's Date [...] with Dr Andrea for infection. Please call [phone] for appointment Medical Decision Making/Summary/Discussion:05/07/2022 Infection Control Recommendations [place] Precautions Contact Isolation MRSA Antimicrobial Stewardship Recommendations [...] the police brought him in to the [facility] ER. At that location the patient complained of redness, swelling and pain of the left ankle. He was transferred to [place] because of concerns with recurrence of one [...] in the retrocalcaneal bursa. Discussed with patient, ANSELMO, IM 05/06/2022 I have personally reviewed the [...] AND DRAINAGE, BONE LEFT CALCANEOUS performed by Tpi Grewal DPM at [facility] OR FOOT SURGERY Left 01/26/2022 [...] use: Yes Types: Cocaine, Opiates , Marijuana ([place]), Methamphetamines (C[place]) Comment: last use 05/05 [...] Friends and Family: Not on file Attends Taoist Services: Not on file Active Member of [...] excluded. No soft tissue gas. Medical Decision Nbzfra-Xvmzigno-Kgquo: Medical Decision Making-Other: Note: Labs, medications, radiologic studies were reviewed with personal review of films Large amounts of data were reviewed Discussed with nursing Staff, associate merchandise planner Infection Control and Prevention measures reviewed [...] is a 42 y.o. male seen at [facility] for left heel pain. Patient is [...] Kerlix, Alireza bandage Discussed with Dr. Aissatou Corodva DPM Podiatric Medicine & Surgery 05/07/2022 at 12:34 PM documented in this encounterBON DIGN[facility]ILBERTDahu [facility] GOD HOSPITALNavendis Phone: [phone]) 426-899706-27-2022 Hospital Discharge instructions* Discharge Instr - Activity* Jsaon Sunshine RN - 05/07/2022 4:29 PM EDT [...] at most local grocery stores, pharmacies, and [employer]-stores. If you have any questions about your diet or nutrition, call the hospital and ask for the dietitian. regular * Discharge Instr - CARLINE* Diane Cordova DPM - 05/08/2022 11:19 AM [...] Information Primary Emergency Contact: Alisa Ansari Address: [place] [address] Relation: Parent Secondary Emergency Contact: jaida greenberg Mobile Relation: Aunt/Uncle Past Surgical History: Past Surgical History: Procedure Laterality Date ABSCESS DRAINAGE Left 2020 arm APPENDECTOMY FINGER SURGERY Right 5 th finger tendon repair FOOT DEBRIDEMENT Left 01/26/2022 INCISION AND DRAINAGE, BONE LEFT CALCANEOUS performed by Tip Grewal DPM at [facility] OR FOOT SURGERY Left 01/26/2022 INCISION AND DRAINAGE, BONE LEFT CALCANEOUS (Left Foot) PICC INSERTION VASCULAR ACCESS TEAM 01/25/2022 TYMPANOSTOMY TUBE PLACEMENT Bilateral Immunization History: There is no immunization history on file for this patient. 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[facility]) M00.061 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 Moderate tricuspid regurgitation I07.1 Hyperkalemia E87.5 Endocarditis I38 Sepsis ([facility]) A41.9 Staphylococcal arthritis of left ankle ([facility]) M00.072 Hyperglycemia R73.9 Sepsis due to Nathaniel species without acute organ dysfunction ([facility]) B37.7, R65.20 Sinus tachycardia R00.0 Septic bursitis of Achilles M71.10 Acute osteomyelitis of left calcaneus ([facility]) M86.172 Opiate withdrawal ([facility]) F11.23 Acute hematogenous osteomyelitis of left ankle ([facility]) M86.072 Cellulitis of left lower extremity L03.116 IV drug abuse ([facility]) F19.10 Tenosynovitis of left ankle [...] MENTAL STATUS:} IV Access: { CARLINE IV ACCESS:587873390} Nursing Mobility/ADLs: Walking {CHP DME ADLs:581747555} Transfer {CHP DME ADLs:205815905} Bathing {CHP DME ADLs:537955781} Dressing {CHP DME ADLs:578007037} Toileting {CHP DME ADLs:540965016} Feeding {CHP DME ADLs:835600312} Grease Buffer {CHP DME ADLs:003414547} Med Delivery { CARLINE MED Delivery:934957788} Wound Care Documentation and Therapy: Wound 01/20/22 Ankle Left;Posterior (Active) Number of days: 107 Incision 01/26/22 Tibial Distal;Left;Posterior (Active) Number of days: 101 Elimination: Continence: Bowel: {YES / NO:} Bladder: {YES / NO:} Urinary Catheter: {Urinary Catheter:257189157} Colostomy/Ileostomy/Ileal Conduit: {YES / NO:} Date of Last BM: Intake/Output Summary (Last 24 hours) at 05/08/2022 1118 Last data filed at 05/08/2022 0730 Gross per 24 hour Intake -- Output 1600 ml Net -1600 ml I/O last 3 completed shifts: In: 1076 [P.O.:620; I.V.:35; IV Piggyback:421] Out: 2400 [Urine:2400] Safety Concerns: { CARLINE Safety Concerns:248585654} Impairments/Disabilities: { CARLINE Impairments/Disabilities:664829441} Nutrition Therapy: Current Nutrition Therapy: { CARLINE Diet List:550839867} Routes of Feeding: {[facility] Other Feedings:479737383} Liquids: {[facility] liquid thickness:17499} Daily Fluid Restriction: {[facility] DME Yes amt example:056126324} Last Modified Barium Swallow with Video (Video Swallowing Test): {Done Not Done Date:} Treatments at the Time of Hospital Discharge: Respiratory Treatments: Oxygen Therapy: {Therapy; copd oxygen:82561} Ventilator: {[facility] Vent List:822440799} Rehab Therapies: {THERAPEUTIC INTERVENTION:1418423172} Weight Bearing Status/Restrictions: {[facility] Weight Bearin} Other Medical Equipment (for information only, NOT a DME order): {EQUIPMENT:312546772} Other Treatments: Patient's personal belongings (please select all that are sent with patient): {[facility] DME Belongings:819098254} RN SIGNATURE: {Esignature:565392372} CASE MANAGEMENT/SOCIAL WORK SECTION Inpatient Status Date: Readmission Risk Assessment Score: Readmission Risk Risk of Unplanned Readmission: 20 Discharging to Facility/ Agency Name: Address: Phone: Fax: Dialysis Facility (if applicable) Name: Address: Dialysis Schedule: Phone: Fax: Visitor Services Technician/Woodworking Belt Sander signature: {Esignature:745686248} PHYSICIAN SECTION Prognosis: {Prognosis:0605100878} Condition at Discharge: { Patient Condition:830751676} Rehab Potential (if transferring to Rehab): {Prognosis:4390758160} Recommended Labs or Other Treatments After Discharge: Partial weightbearing in CAM walker to left leg Physician Certification: I certify the above information and transfer of Tip Ansari is necessary for the continuing treatment of the diagnosis listed and that he requires {Admit to AppropriateLevel of Care:02878} for {GREATER/LESS:490851011} 30 days. Update Admission H&P: {CHP DME Changes in HandP:920671437} PHYSICIAN SIGNATURE: {Esignature:069644330} * Additional Instructions* Diane Cordova DPM - 05/08/2022 Partial weight bearing to left foot, Wear cam boot to left foot while out of bed. documented in this encounterBON [facility] Phone: 1(262) 847-317603-22-2022 History of Present illness Narrative* Elvin Ricketts RN - 01/30/2022 4:30 PM EDT Pt being discharged home with friend. Pt stated he called his motor equipment commanding officer to inform them of discharge. Discharge instructions reviewed. Meds delivered via meds to bed. All belongings accounted for. All questions answered. * Erin Rodrigues PTA - 01/30/2022 1:49 PM EDT Physical Therapy Facility/Department: [place] [address] Daily Treatment Note NAME: Tip Ansari : [...] abduction/adduction, heel/toe raises, andmarches. Reps:15 AM-PAC Score AM-PAC Inpatient Mobility Raw [...] from the original note were not included. [facility] Office: [phone] Mikie Rodriguez DO, Theo Lerma DO, Stuart [...] Tapia CNP, Mary Meléndez CNP, Cathleen Moran, CHANTALE, Abdirahman Bella CNP, Leslie Rao CNP, Madalyn Julien, PABLO, Ro Bernard, PABLO, Carter Charles, PABLO, Mckayla Bertrand PA-C, Eli Fu DNP, Razia Figueroa DNP, Keri Walker, PABLO, Sherrie Rea, PABLO, Moon Waldrop, PABLO, Ethel Soto, PABLO, Jazzy Javier, PABLO, Shelli Menon, PABLO [facility] IN-PATIENT SERVICE [facility] Progress Note 01/30/2022 1:39 PM Name: Tip Ansari Acct: [id number] Room: IP Day: 10 Admit Date: 01/20/2022 [...] year old gentleman who initially presented to [facility] ED from the local long-term after he developed acute onset chills and shaking. He noted a wound to his left foot as well. Onset was abrupt, as he felt well earlier in the day. Patient was previously at [facility] in December for MRSA bacteremia with tricuspid [...] vancomycin and patient was discharged back to long-term CT imaging in the ER revealed no [...] Daily Continuous Infusions: sodium chloride 25 mL (01/27/220) dextrose PRN Meds: aluminum & magnesium hydroxide-simethicone, [...] drug use. Drugs: Cocaine, Opiates , Marijuana ([place]), and Methamphetamines (Crystal Meth). Hereports that he [...] Results Component Value Date PHART 7.380 12/16/2020 [id number] 44.5 12/16/2020 PO2ART 94.4 12/16/2020 RYS7AKG 25.7 12/16/2020 NBEA NOT REPORTED 12/16/2020 PBEA 0.3 12/16/2020 [id number] 97.1 12/16/2020 FIO2 28 12/16/2020 Lab Results [...] 12:58 PM EDT Physician Progress Note PATIENT: COTY TIP CSN #: [id number] : 1980 ADMIT DATE: 01/20/2022 10:23 PM [...] were not included. [facility] - Infectious diseases evaluation admission date 01/20/2022 reason for consultation: Sepsis Vanco allergy Impression : Current: Vancomycin reaction- Tachycardia fever red neck syndrome in [place] Pulmonary septic emboli, MRSA -residual lesions remain [...] red neck syndrome infection with fever in [place] and again here Label allergic to vanco [...] Chart reconsiled for DC Infection Control Recommendations [place] Precautions Contact Isolation Antimicrobial Stewardship Recommendations Simplification of therapy IV to oral conversion Coordination ofOutpatient Care: Estimated Length of IV antimicrobials: Patient will need Midline / picc Catheter Insertion: Patient will need SNF: Patient will need outpatient wound care: History of Present Illness: Initial history: Tip Ansari is a 42 y.o.-year-old male sent to patient from long-term because of rigors and fever as well as the left foot wound that seems to have started suddenly in long-term Recently seen 12/2021 by me ALVES for [...] Acid, Whole Blood3.3 High Sed Rate58 High Ggdvzlvfyoblw81.47 High Micro: BC One f two, 01/21 [...] CALCANEOUS performed by Tip Grewal DPM at [facility] OR FOOT SURGERY Left 01/26/2022 [...] use: Yes Types: Cocaine, Opiates , Marijuana ([place]), Methamphetamines (Crystal Meth) Comment: quit heroin Nov [...] Friends and Family: Not on file Attends Taoist Services: Not on file Active Member of [...] Andrea MD Office: Perfect serve / office [phone] * Erin Rodrigues PTA - 01/29/2022 1:37 [...] from the original note were not included. [facility] Office: [phone] Mikie Rodriguez DO, Theo Lerma DO, Stuart [...] Alberto Perez MD, Teresa Quintero, PABLO, Tika Tapia CNP, Mary Meléndez CNP, CHANTALE Wheat, Abdirahman Bella CNP, Leslie Rao, UTILITY AIRCREWMAN, Madalyn Julien, UTILITY AIRCREWMAN, Ro Bernard, UTILITY AIRCREWMAN, Carter Charles, PABLO, Mckayla Bertrand PA-C, Eli Fu, FÉLIX, Razia Figueroa, FÉLIX, Keri Walker, PABLO, Sherrie Rea, PABLO, Moon Waldrop, UTILITY AIRCREWMAN, Ethel Soto, UTILITY AIRCREWMAN, Jazzy Javier, UTILITY AIRCREWMAN, Shelli Menon, UTILITY AIRCREWMAN [facility] IN-PATIENT SERVICE [facility] Progress Note 01/29/2022 1:33 PM Name: Tip Ansari Acct: [id number] Room: IP Day: 9 Admit Date: 01/20/2022 [...] year old gentleman who initially presented to [facility] ED from the local long-term after he developed acute onset chills and shaking. He noted a wound to his left foot as well. Onset was abrupt, as he felt well earlier in the day. Patient was previously at [facility] in December for MRSA bacteremia with tricuspid [...] vancomycin and patient was discharged back to long-term CT imaging in the ER revealed no [...] drug use. Drugs: Cocaine, Opiates , Marijuana ([place]), and Methamphetamines (Crystal Meth). Hereports that he [...] Results Component Value Date PHART 7.380 12/16/2020 BOB3CQQ 44.5 12/16/2020 PO2ART 94.4 12/16/2020 FVL9CJN 25.7 12/16/2020 NBEA NOT REPORTED 12/16/2020 PBEA 0.3 12/16/2020 [id number] 97.1 12/16/2020 FIO2 28 12/16/2020 Lab Results [...] (HCC) 01/28/2022 No Heroin abuse ([facility]) 01/23/2022 Yes Moderate tricuspid regurgitation [...] loss Fluid Accumulation: 1 - Mild Extremities Chief Customer Officer Strength: Not Performed Estimated Daily Nutrient Needs: Energy (kcal): 25-28 kcal/kg = 8372-6665 kcals/day; Weight Used for Energy Requirements: [place] Protein (g): 1.2-1.5 gm/kg = 90-110 gm [...] kg) (12/13/21 bed scale per chart review) [place] Body Weight: 178 lbs; % [place] Body Weight 90 % BMI: 21.7 BMI [...] Status,Weight,Skin Discharge Planning: Continue current diet Contact: [phone] * Tip Parker, MIAN - LIVESTOCK LABORER - 01/29/2022 11:03 AM EDT [facility] Cardiothoracic Surgery Progress Note 01/29/2022 11:03 AM [...] Labs reviewed today CBC: Recent Labs 01/27/22 0622 01/28/22 0436 01/29/22 [...] were not included. [facility] - Infectious diseases evaluation admission date 01/20/2022 reason for consultation: Sepsis Vanco allergy Impression : Current: Vancomycin reaction- Tachycardia fever red neck syndrome in [place] Pulmonary septic emboli, MRSA -residual lesions remain [...] red neck syndrome infection with fever in [place] and again here Label allergic to vanco [...] condition carries increased mortality Infection Control Recommendations [place] Precautions Contact Isolation Antimicrobial Stewardship Recommendations Simplification of therapy IV to oral conversion Coordination ofOutpatient Care: Estimated Length of IV antimicrobials: Patient will need Midline / picc Catheter Insertion: Patient will need SNF: Patient will need outpatient wound care: History of Present Illness: Initial history: Tip Ansari is a 42 y.o.-year-old male sent to patient from long-term because of rigors and fever as well as the left foot wound that seems to have started suddenly in long-term Recently seen 12/2021 by pa [facility] for MRSA bacteremia, right knee septic [...] Acid, Whole Blood3.3 High Sed Rate58 High Lxjlbraimvwwn39.47 High Micro: BC One f two, 01/21 [...] use: Yes Types: Cocaine, Opiates , Marijuana ([place]), Methamphetamines (Crystal Meth) Comment: quit heroin Nov [...] Friends and Family: Not on file Attends Taoist Services: Not on file Active Member of [...] Andrea MD Office: Perfect serve / office [phone] * Tariq Dumont MD - 01/28/2022 8:43 AM EDT Images from the original note were not included. [facility] - Infectious diseases evaluation Progress [...] reaction- Tachycardia, fever, red neck syndrome in [place] s/p 2 doses of Vancomycin. Likely serotonin [...] foot I&D on 01/26/22 Infection Control Recommendations [place] Precautions Contact Isolation Antimicrobial Stewardship Recommendations Simplification of therapy IV to oral conversion Coordination ofOutpatient Care: Estimated Length of IV antimicrobials: Patient will need Midline / picc Catheter Insertion: Patient will need SNF: Patient will need outpatient wound care: History of Present Illness: Initial history: Tip Ansari is a 42 y.o.-year-old male sent from long-term because of rigors and fever as well as a left foot wound that seems to have started suddenly in long-term Recently seen 12/13/[address] Andrea at [...] Whole Blood: 3.3 High Sed Rate58 High Stauqgjnfvkol83.47 High Micro: Blood: 12-13-21: MRSA x 2 12-16-21: MRSA x1 01-20-22: No growth X 4 01/21/22 1/ C albicans 01/23/22: No growth Wound: 12-16-21: [...] use: Yes Types: Cocaine, Opiates , Marijuana ([place]), Methamphetamines (Crystal Meth) Comment: quit heroin Nov [...] Friends and Family: Not on file Attends Taoist Services: Not on file Active Member of [...] following labs: CBC with Differential: Recent Labs 01/27/22 0622 01/28/22 0436 WBC 19.8* 7.8 HGB 10.1* 9.4* HCT 31.8* 30.1* PLT 201 178 LYMPHOPCT 7* 18* MONOPCT 4 6 BMP: Recent Labs 01/27/22 0622 01/28/22 0436 NA 136 137 K 4.4 3.5* CL 101 103 CO2 24 20 BUN 25* 29* CREATININE 0.93 0.98 MG -- 1.7 Hepatic Function Panel: Recent Labs 01/27/22 0622 01/28/22 0436 PROT 7.2 6.4 LABALBU 3.1* 3.0* [...] Contains abnormal data Culture, Blood 1 Order: [id number] Status: Final result Visible to patient: No [...] Martinez AT 1440 ON 12/14/2021 Resulting Agency [facility] Susceptibility Methicillin resistant staphylococcus aureus (4) Antibiotic [...] by contextual diversion. Chasity Matos APRN - [facility] Office: Perfect serve / office [phone] * Fabricio Syed DO - 01/28/2022 8:29 AM EDT Images from the original note were not included. [facility] Office: [phone] Mikie Rodriguez DO, Theo Lerma DO, Stuart [...] Alberto Perez MD, Teresa Quintero CNP, Tika Tapia, PABLO, Mary Meléndez, PABLO, Cathleen Moran, CHANTALE, Abdirahman Bella, PABLO, Leslie Rao, PABLO, Madalyn Julien, PABLO, Ro Bernard, PABLO, Carter Charles, PABLO, Mckayla Bertrand PA-C, Eli Fu, FÉLIX, Razia Figueroa, FÉLIX, Keri Walker, PABLO, Sherrie Rea, PABLO, Moon Waldrop, PABLO, Ethel Soto, PABLO, Jazzy Javier, PABLO, Shelli Menon, PABLO [facility] IN-PATIENT SERVICE [facility] Progress Note 01/28/2022 8:29 AM Name: Tip Ansari Acct: [id number] Room: IP Day: 8 Admit Date: 01/20/2022 [...] year old gentleman who initially presented to [facility] ED from the local long-term after he developed acute onset chills and shaking. He noted a wound to his left foot as well. Onset was abrupt, as he felt well earlier in the day. Patient was previously at [facility] in December for MRSA bacteremia with tricuspid [...] vancomycin and patient was discharged back to long-term CT imaging in the ER revealed no [...] drug use. Drugs: Cocaine, Opiates , Marijuana ([place]), and Methamphetamines (Crystal Meth). Hereports that he [...] Results Component Value Date PHART 7.380 12/16/2020 FKR0OCM 44.5 12/16/2020 PO2ART 94.4 12/16/2020 MWO7ZNB 25.7 12/16/2020 NBEA NOT REPORTED 12/16/2020 PBEA 0.3 12/16/2020 G3RTSSNC 97.1 12/16/2020 FIO2 28 12/16/2020 Lab Results [...] left calcaneus (HCC) 01/28/2022 Yes Opiate withdrawal ([facility]) 01/28/2022 No Heroin abuse ([facility]) 01/23/2022 Yes Moderate tricuspid regurgitation [...] SYED DO 01/28/2022 8:29 AM * Tom White, DPM - 01/27/2022 12:05 PM EDT Images from the original note were not included. Progress Note Podiatric Medicine and Surgery Subjective CC: Ankle pain, left Patient seen and examined at bedside. OR for I&D in the PM S/p I&D of left heel (01/26/2022) Pain is well controlled. HPI : Tip Ansari is a 42 y.o. male seen at [facility] for possible septic arthritis of the leftankle. [...] 600 [Urine:600] CBC: Recent Labs 01/25/22 0546 01/26/22 0458 01/27/22 0622 WBC 9.0 8.2 19.8* HGB 10.6* 10.7* 10.1* HCT 34.5* 33.3* 31.8* PLT 189 183 201 BMP: Recent Labs 01/25/22 0546 01/26/22 0458 01/27/22 0622 NA 139 137 136 K 4.4 4.2 4.4 CL 105 104 101 CO2 20 21 24 BUN 19 26* 25* CREATININE 0.82 0.95 0.93 GLUCOSE 109* 123* 187* CALCIUM 9.0 9.5 9.1 Coags: Recent Labs 01/25/22 0546 01/26/22 0458 01/27/22 0622 PROT 7.5 8.0 7.2 Lab Results Component [...] not hesitate to contact the podiatry resident intermission coordinator with any other questions or concerns. Follow-up with Dr. Grewal within [address] Aissatou White DPM Podiatric Medicine & Surgery 01/27/2022 at 12:05 PM * Fabricio Syed DO - 01/27/2022 11:00 AM EDT Images from the original note were not included. [facility] Office: [phone] Mikie Rodriguez DO, Theo Lerma DO, Stuart [...] Tapia CNP, Mary Meléndez CNP, Cathleen Moran, SHIPPING PACKER, Abdirahman Bella, UTILITY AIRCREWMAN, Leslie Rao UTILITY AIRCREWMAN, Madalyn Julien, UTILITY AIRCREWMAN, Ro Bernard, UTILITY AIRCREWMAN, Carter Charles, UTILITY AIRCREWMAN, KO HunterC, Eli Fu DNP, Razia Figueroa DNP, Keri Walker, UTILITY AIRCREWMAN, Sherrie Rea, UTILITY AIRCREWMAN, Moon Waldrop, UTILITY AIRCREWMAN, Ethel Soto, UTILITY AIRCREWMAN, Jazzy Javier, UTILITY AIRCREWMAN, Shelli Menon, UTILITY AIRCREWMAN [facility] IN-PATIENT SERVICE [facility] Progress Note 01/27/2022 11:00 AM Name: Tip Ansari Acct: [id number] Room: IP Day: 7 Admit Date: 01/20/2022 [...] year old gentleman who initially presented to [facility] ED from the local long-term after he developed acute onset chills and shaking. He noted a wound to his left foot as well. Onset was abrupt, as he felt well earlier in the day. Patient was previously at [facility] in December for MRSA bacteremia with tricuspid [...] vancomycin and patient was discharged back to long-term CT imaging in the ER revealed no [...] sodium chloride Stopped (01/25/22 184) dextrose PRN Meds: sodium chloride flush, sodium [...] drug use. Drugs: Cocaine, Opiates , Marijuana ([place]), and Methamphetamines (Crystal Meth). Hereports that he [...] Results Component Value Date PHART 7.380 12/16/2020 OCK2LBM 44.5 12/16/2020 PO2ART 94.4 12/16/2020 WYP0NTC 25.7 12/16/2020 NBEA NOT REPORTED 12/16/2020 PBEA 0.3 12/16/2020 [id number] 97.1 12/16/2020 FIO2 28 12/16/2020 Lab Results [...] were not included. [facility] - Infectious diseases evaluation Progress Note admission date 01/20/2022 reason for consultation: Sepsis Vanco allergy Impression : Current: Left calcaneal Osteomyelitis Partially torn left Achilles tendon with Achilles tendonitis Septic bursitis of left heel. s/p I&D 01/26/22 Currently on doxycyline because of allergic reaction to Vancomycin Vancomycin reaction- Tachycardia, fever, red neck syndrome in [place] s/p 2 doses of Vancomycin. Likely serotonin [...] foot I&D on 01/26/22 Infection Control Recommendations [place] Precautions Contact Isolation Antimicrobial Stewardship Recommendations Simplification of therapy IV to oral conversion Coordination ofOutpatient Care: Estimated Length of IV antimicrobials: Patient will need Midline / picc Catheter Insertion: Patient will need SNF: Patient will need outpatient wound care: History of Present Illness: Initial history: Tip Ansari is a 42 y.o.-year-old male sent from long-term because of rigors and fever as well as a left foot wound that seems to have started suddenly in long-term Recently seen 12/13/[address] Andrea at [...] Whole Blood: 3.3 High Sed Rate58 High Lyjwnhroeksbg66.47 High Micro: Blood: 12-13-21: MRSA x 2 12-16-21: MRSA x1 01-20-22: No growth X 4 01/21/22 1/ C albicans 01/23/22: No growth Wound: 12-16-21: [...] use: Yes Types: Cocaine, Opiates , Marijuana ([place]), Methamphetamines (Crystal Meth) Comment: quit heroin Nov [...] Friends and Family: Not on file Attends Taoist Services: Not on file Active Member of [...] CBC with Differential: Recent Labs 01/26/22 0458 01/27/22621 WBC 8.2 19.8* HGB 10.7* 10.1* HCT 33.3* 31.8* PLT 183 201 LYMPHOPCT 20* 7* MONOPCT 14* 4 BMP: Recent Labs 01/26/22 0458 01/27/22621 NA 137 136 K 4.2 4.4 CL 104 101 CO2 21 24 BUN 26* 25* CREATININE 0.95 0.93 Hepatic Function Panel: Recent Labs 01/26/228 01/27/22621 PROT 8.0 7.2 LABALBU 3.1* 3.1* BILIDIR [...] Contains abnormal data Culture, Blood 1 Order: [id number] Status: Final result Visible to patient: No [...] Martinez AT 1440 ON 12/14/2021 Resulting Agency [facility] Susceptibility Methicillin resistant staphylococcus aureus (4) Antibiotic [...] be extrapolated by contextual diversion. Chasity Matos, COMMERCIAL ANNOUNCER - UTILITY AIRCREWMAN ATTESTATION: I have discussed the case, including pertinent history and exam findings with the COMMERCIAL ANNOUNCER. I have evaluated the History, physical findings and pictures of the patient and the hall elements of the encounter have been performed by me. I have reviewed the laboratory data, other diagnostic studies and discussed them with the COMMERCIAL ANNOUNCER. I have updated the medical record where necessary. I agree with the assessment, plan and orders as documented by the COMMERCIAL ANNOUNCER. Tariq Dumont MD. Office: Perfect serve / office [phone] * Marisol Andrea MD - 01/26/2022 11:19 PM EDT Images from the original note were not included. [facility] - Infectious diseases evaluation admission date 01/20/2022 reason for consultation: Sepsis Vanco allergy Impression : Current: Vancomycin reaction- Tachycardia fever red neck syndrome in [place] Pulmonary septic emboli, MRSA -residual lesions remain [...] red neck syndrome infection with fever in [place] and again here Label allergic to vanco [...] condition carries increased mortality Infection Control Recommendations [place] Precautions Contact Isolation Antimicrobial Stewardship Recommendations Simplification of therapy IV to oral conversion Coordination ofOutpatient Care: Estimated Length of IV antimicrobials: Patient will need Midline / picc Catheter Insertion: Patient will need SNF: Patient will need outpatient wound care: History of Present Illness: Initial history: Tip Ansari is a 42 y.o.-year-old male sent to patient from long-term because of rigors and fever as well as the left foot wound that seems to have started suddenly in long-term Recently seen 12/2021 by pa [facility] for MRSA bacteremia, right knee septic [...] Acid, Whole Blood3.3 High Sed Rate58 High Vnlahrpsahxex56.47 High Micro: BC One f two, 01/21 [...] use: Yes Types: Cocaine, Opiates , Marijuana ([place]), Methamphetamines (Crystal Meth) Comment: quit heroin Nov [...] Friends and Family: Not on file Attends Taoist Services: Not on file Active Member of [...] Andrea MD Office: Perfect serve / office [phone] * Fabricio Syed DO - 01/26/2022 2:35 PM EDT Images from the original note were not included. [facility] Office: [phone] Mikie Rodriguez DO, Theo Lerma DO, Stuart [...] Alberto Perez MD, Teresa Quintero CNP, Tika Tapia, UTILITY AIRCREWMAN, Mary Meléndez, UTILITY AIRCREWMAN, Cathleen Moran, SHIPPING PACKER, Abdirahman Bella, UTILITY AIRCREWMAN, Leslie Rao, UTILITY AIRCREWMAN, Madalyn Julien, UTILITY AIRCREWMAN, Ro Bernard, UTILITY AIRCREWMAN, Carter Charles, PABLO, Mckayla Bertrand PA-C, Eli Fu, FÉLIX, Razia Figueroa, DNP, Keri Walker, UTILITY AIRCREWMAN, Sherrie Rea, UTILITY AIRCREWMAN, Moon Waldrop, UTILITY AIRCREWMAN, Ethel Soto, UTILITY AIRCREWMAN, Jazzy Javier, UTILITY AIRCREWMAN, Shelli Menon, UTILITY AIRCREWMAN [facility] IN-PATIENT SERVICE [facility] Progress Note 01/26/2022 2:36 PM Name: Tip Ansari Acct: [id number] Room: [facility]/NONE IP Day: 6 Admit Date: 01/20/2022 10:23 [...] year old gentleman who initially presented to [facility] ED from the local long-term after he developed acute onset chills and shaking. He noted a wound to his left foot as well. Onset was abrupt, as he felt well earlier in the day. Patient was previously at [facility] in December for MRSA bacteremia with tricuspid [...] vancomycin and patient was discharged back to long-term CT imaging in the ER revealed no [...] very slow infusion Current Meds: Scheduled Meds: [Jan] metoprolol succinate 25 mg Oral Daily [Jan] lidocaine 1 % injection 5 mL IntraDERmal Once [Jan] sodium chloride flush 5-40 mL IntraVENous 2 [...] traZODone, [JAN Hold] glucose, [JAN Hold] dextrose, [MAR Hold] glucagon (rDNA), [MAR Hold] dextrose, [MAR Hold] melatonin, [MAR Hold] hydrOXYzine, [MAR Hold] potassium chloride OR [MAR Hold] potassium alternative oral replacement OR [MAR Hold] potassium chloride, [MAR Hold] magnesium sulfate, [MAR Hold] ondansetron OR [MAR Hold] ondansetron, [MAR Hold] polyethylene glycol,[MAR Hold] acetaminophen OR [MAR Hold] acetaminophen Data: Past Medical History: has a past medical history of Abscess, Chronic hepatitis C without hepatic coma (HCC), COPD (chronic obstructive pulmonary disease) (HCC), Depression, and Drug addiction (HCC). Social History: reports that he has quit smoking. He has never used smokeless tobacco. He reports current drug use. Drugs: Cocaine, Opiates , Marijuana ([place]), and Methamphetamines (Crystal Meth). Hereports that he [...] C), Max:98.6 F (37 C) Recent Labs 01/23/22 2117 01/24/22 0806 POCGLU 122* 97 I/O (24Hr): Intake/Output [...] 183 MPV 9.2 8.7 Chemistry: Recent Labs 01/25/22 0546 01/26/22 0458 NA 139 137 K 4.4 4.2 CL 105 104 CO2 20 21 GLUCOSE 109* 123* BUN 19 26* CREATININE 0.82 0.95 ANIONGAP 14 12 LABGLOM >60 >60 GFRAA >60 >60 CALCIUM 9.0 9.5 CKTOTAL 9* 10* Recent Labs 01/23/22 2117 01/24/22 0806 01/25/22 0546 01/26/22 0458 PROT -- -- 7.5 8.0 LABALBU -- -- 3.0* 3.1* AST -- -- 21 19 ALT -- -- 31 30 ALKPHOS -- -- 99 99 BILITOT -- -- 0.20* 0.21* BILIDIR -- -- <0.08 <0.08 POCGLU 122* 97 -- -- ABG: Lab Results Component Value Date PHART 7.380 12/16/2020 [id number] 44.5 12/16/2020 PO2ART 94.4 12/16/2020 [id number] 25.7 12/16/2020 NBEA NOT REPORTED 12/16/2020 PBEA 0.3 12/16/2020 [id number] 97.1 12/16/2020 FIO2 28 12/16/2020 Lab Results [...] is a 42 y.o. male seen at [facility] for possible septic arthritis of the leftankle. [...] IV. Nurse stopped iv 21:58 Nurse notified intermission coordinator LIVESTOCK LABORER Yoly Quintero. Ordered benadryl and morphine. Notified [...] were not included. [facility] - Infectious diseases evaluation admission date 01/20/2022 reason for consultation: Sepsis Vanco allergy Impression : Current: Vancomycin reaction- Tachycardia fever red neck syndrome in [place] Pulmonary septic emboli, MRSA -cavitations improved, nodules [...] red neck syndrome infection with fever in [place] and again here Label allergic to vanco [...] condition carries increased mortality Infection Control Recommendations [place] Precautions Contact Isolation Antimicrobial Stewardship Recommendations Simplification of therapy IV to oral conversion Coordination ofOutpatient Care: Estimated Length of IV antimicrobials: Patient will need Midline / picc Catheter Insertion: Patient will need SNF: Patient will need outpatient wound care: History of Present Illness: Initial history: Tip Ansari is a 42 y.o.-year-old male sent to patient from long-term because of rigors and fever as well as the left foot wound that seems to have started suddenly in long-term Recently seen 12/2021 by me ALVES for [...] 98.2 F (36.8 C) Oral 112 25 3/14 C alb in one BC only Unclear [...] Acid, Whole Blood3.3 High Sed Rate58 High Mltkwcoixzmtj31.47 High Micro: BC One f two, 01/21 [...] use: Yes Types: Cocaine, Opiates , Marijuana ([place]), Methamphetamines (Crystal Meth) Comment: quit heroin Nov [...] Friends and Family: Not on file Attends Taoist Services: Not on file Active Member of [...] Andrea MD Office: Perfect serve / office [phone] * Nilsa Calderon RD, LD - 01/25/2022 [...] muscle mass loss Fluid Accumulation: (Moderate) Extremities Chief Customer Officer Strength: Not Performed Estimated Daily Nutrient Needs: [...] kg) (12/13/21 bed scale per chart review) [place] Body Weight: 178 lbs; % [place] Body Weight 90 % BMI: 21.7 BMI [...] Discharge Planning: Too soon to determine Contact: [phone] * Fabricio Syed DO - 01/25/2022 12:15 PM EDT Images from the original note were not included. [facility] Office: [phone] Mikie Rodriguez DO, Theo Lerma DO, Stuart [...] Avila MD, Alberto Perez MD, Teresa Quintero, UTILITY AIRCREWMAN, Tika Tapia, UTILITY AIRCREWMAN, Mary Meléndez, UTILITY AIRCREWMAN, Cathleen Moran, SHIPPING PACKER, Abdirahman Bella, UTILITY AIRCREWMAN, Leslie Rao, UTILITY AIRCREWMAN, Madalyn Julien, UTILITY AIRCREWMAN, Ro Bernard, UTILITY AIRCREWMAN, Carter Charles, UTILITY AIRCREWMAN, Mckayla Bertrand PA-Junior, Eli Fu, DNP, Razia Figueroa, DNP, Keri Walker, UTILITY AIRCREWMAN, Sherrie Rea, UTILITY AIRCREWMAN, Moon Waldrop, UTILITY AIRCREWMAN, Ethel Soto, UTILITY AIRCREWMAN, Jazzy Javier, UTILITY AIRCREWMAN, Shelli Menon, UTILITY AIRCREWMAN [facility] IN-PATIENT SERVICE [facility] Progress Note 01/25/2022 12:15 PM Name: Tip Ansari Acct: [id number] Room: IP Day: 5 Admit Date: 01/20/2022 [...] year old gentleman who initially presented to [facility] ED from the local long-term after he developed acute onset chills and shaking. He noted a wound to his left foot as well. Onset was abrupt, as he felt well earlier in the day. Patient was previously at [facility] in December for MRSA bacteremia with tricuspid [...] vancomycin and patient was discharged back to long-term CT imaging in the ER revealed no [...] drug use. Drugs: Cocaine, Opiates , Marijuana ([place]), and Methamphetamines (Crystal Meth). Hereports that he [...] Results Component Value Date PHART 7.380 12/16/2020 [id number] 44.5 12/16/2020 PO2ART 94.4 12/16/2020 [id number] 25.7 12/16/2020 NBEA NOT REPORTED 12/16/2020 PBEA 0.3 12/16/2020 [id number] 97.1 12/16/2020 FIO2 28 12/16/2020 Lab Results [...] to vancomycin - red man syndrome in [place] ED Left ankle soft tissue infection - [...] SYED DO 01/25/2022 12:15 PM * Kwabena Ashraf APRN - [place] - 01/25/2022 10:25 AM EDT Images from the original note were not included. [employer] Tele[employer] Sex Worker Progress Note Date: 01/25/2022 Patient name: Tip [...] Infusions: dextrose sodium chloride 25 mL (01/24/22 2256) CBC: Recent Labs 01/23/22 0911 01/25/22 0546 [...] eccentric regurgitation is identified. Cardiovascular Diseases Fellow [facility] Objective: Vitals: BP 115/81 Pulse 113 Temp [...] course per ID 3. Keep k>4, Mg>2 [place] Telephone Sex Worker [facility]. [phone] * Sawyer Arceo DPM - 01/25/2022 7:50 AM EDT Images from the original note were not included. Progress Note Podiatric Medicine and Surgery Subjective CC: Ankle pain, left Patient seen and examined at bedside. OR for I&D in the PM Patient is NPO HPI : Tip Ansari is a 42 y.o. male seen at [facility] for possible septic arthritis of the leftankle. [...] Continuous Infusions: dextrose sodium chloride 25 mL (01/24/222233) PRN Meds:traZODone, glucose, dextrose, glucagon (rDNA), dextrose, [...] Intermed messaged regarding IV situation. Darnell Tapia LIVESTOCK LABORER placed order for PICC Line. Jacob JuanShipping Assistant notified and stated he will notify PICC [...] RN - 01/24/2022 10:15 PM EDT perfectserved [facility] primary team regarding multiple attempts tried to obtain IV access along with using ultrasound for IV...unsuccessful. Asked if we could try the house doctor intermission coordinator to place a line. Wilma Quintero NP with [facility] said that was ok to do. [phone]-perfectserved jacob maciel for [facility] perfecto, Dr. Main Huitron. Came to the floor and spoke to pt. Regarding place a line or trying another peripheral IV with the ultrasound machine again but pt. Refused at this time. Dr. Huitron explained to fiction writer and pt. If he changes his mind to let him know and he will come back again this evening to try. Pt. Agreeable. Pt. Has a #20 Left AC, dressing has been changed. Will continue to use the one line available to instill his 3 separate antibiotics this evening. Shipping Assistant, Drake stated he will try and contactthe PICC team in the morning to get pt. Added to list for possible midline or PICC line. * Marisol Andrea MD - 01/24/2022 5:01 PM EDT Images from the original note were not included. [facility] - Infectious diseases evaluation admission date 01/20/2022 reason for consultation: Sepsis Vanco allergy Impression : Current: Vancomycin reaction- Tachycardia fever red neck syndrome in [place] Pulmonary septic emboli, MRSA -cavitations improved, nodules [...] red neck syndrome infection with fever in [place] and again here Label allergic to vanco [...] eval for TV replacement Infection Control Recommendations [place] Precautions Contact Isolation Antimicrobial Stewardship Recommendations Simplification of therapy IV to oral conversion Coordination ofOutpatient Care: Estimated Length of IV antimicrobials: Patient will need Midline / picc Catheter Insertion: Patient will need SNF: Patient will need outpatient wound care: History of Present Illness: Initial history: Tip Ansari is a 42 y.o.-year-old male sent to patient from long-term because of rigors and fever as well as the left foot wound that seems to have started suddenly in long-term Recently seen 12/2021 by pa [facility] for MRSA bacteremia, right knee septic [...] Acid, Whole Blood3.3 High Sed Rate58 High Ejbcudqgaopsk40.47 High Micro: BC One f two, 01/21 [...] use: Yes Types: Cocaine, Opiates , Marijuana ([place]), Methamphetamines (Crystal Meth) Comment: quit heroin Nov [...] Friends and Family: Not on file Attends Taoist Services: Not on file Active Member of [...] CREATININE 0.68* Hepatic Function Panel: Recent Labs 01/23/2211 PROT 7.4 LABALBU 2.8* 2.8* BILIDIR 0.09 [...] Andrea MD Office: Perfect serve / office [phone] * Fabriico Syed DO - 01/24/2022 2:24 PM EDT Images from the original note were not included. [facility] Office: [phone] Mikie Rodriguez DO, Theo Lerma DO, Stuart [...] Avila MD, Alberto Perez MD, Teresa Quintero, UTILITY AIRCREWMAN, Tika Tapia, UTILITY AIRCREWMAN, Mary Meléndez, UTILITY AIRCREWMAN, Cathleen Moran, SHIPPING PACKER, Abdirahman Bella, UTILITY AIRCREWMAN, Leslie Rao, UTILITY AIRCREWMAN, Madalyn Julien, UTILITY AIRCREWMAN, Ro Bernard, UTILITY AIRCREWMAN, Carter Charles, UTILITY AIRCREWMAN, DONOVAN Hunter-C, Eli Fu, DNP, Razia Figueroa, DNP, Keri Walker, UTILITY AIRCREWMAN, Sherrie Rea, UTILITY AIRCREWMAN, Moon Waldrop, UTILITY AIRCREWMAN, Ethel Soto, UTILITY AIRCREWMAN, Jazzy Javier, UTILITY AIRCREWMAN, Shelli Menon, UTILITY AIRCREWMAN [facility] IN-PATIENT SERVICE [facility] Progress Note 01/24/2022 2:24 PM Name: Tip Ansari Acct: [id number] Room: Day: 4 Admit Date: 01/20/2022 10:23 [...] year old gentleman who initially presented to [facility] ED from the local long-term after he developed acute onset chills and shaking. He noted a wound to his left foot as well. Onset was abrupt, as he felt well earlier in the day. Patient was previously at [facility] in December for MRSA bacteremia with tricuspid [...] vancomycin and patient was discharged back to long-term CT imaging in the ER revealed no [...] drug use. Drugs: Cocaine, Opiates , Marijuana ([place]), and Methamphetamines (Crystal Meth). Hereports that he [...] 1634 01/23/22 0911 01/23/22 0928 01/23/22 1216 03211601/24/2206 PROT -- -- -- -- 7.4 -- [...] Results Component Value Date PHART 7.380 12/16/2020 [id number] 44.5 12/16/2020 PO2ART 94.4 12/16/2020 [id number] 25.7 12/16/2020 NBEA NOT REPORTED 12/16/2020 PBEA 0.3 12/16/2020 [id number] 97.1 12/16/2020 FIO2 28 12/16/2020 Lab Results [...] to vancomycin - red man syndrome in [place] ED 5. Left ankle soft tissue infection [...] SYED DO 01/24/2022 2:24 PM * Giles Garcia DPM - 01/24/2022 9:51 AM EDT Images [...] ordered, consent obtained this patient was in Feeder Loader: Consent consists of incision and drainage with debridement of all nonviable soft tissue and bone, bone culture, soft tissue culture, possible wound VAC HPI : Tip Ansari is a 42 y.o. male seen at [facility] for possible septic arthritis of the leftankle. [...] were not included. [facility] - Infectious diseases evaluation admission date 01/20/2022 reason for consultation: Sepsis Vanco allergy Impression : Current: Vancomycin reaction- Tachycardia fever red neck syndrome in [place] Pulmonary septic emboli, MRSA -cavitations improved, nodules [...] red neck syndrome infection with fever in [place] and again here Label allergic to vanco [...] MRSA septic pulm emboli Infection Control Recommendations [place] Precautions Contact Isolation Antimicrobial Stewardship Recommendations Simplification of therapy IV to oral conversion Coordination ofOutpatient Care: Estimated Length of IV antimicrobials: Patient will need Midline / picc Catheter Insertion: Patient will need SNF: Patient will need outpatient wound care: History of Present Illness: Initial history: Tip Ansari is a 42 y.o.-year-old male sent to patient from long-term because of rigors and fever as well as the left foot wound that seems to have started suddenly in long-term Recently seen 12/2021 by pa [facility] for MRSA bacteremia, right knee septic [...] Acid, Whole Blood3.3 High Sed Rate58 High Uumejgrxtypux52.47 High Micro: BC One f two, 01/21 [...] use: Yes Types: Cocaine, Opiates , Marijuana ([place]), Methamphetamines (Crystal Meth) Comment: quit heroin Nov [...] Friends and Family: Not on file Attends Taoist Services: Not on file Active Member of [...] Andrea MD Office: Perfect serve / office [phone] * Giles Garcia DPM - 01/23/2022 10:15 [...] is a 42 y.o. male seen at [facility] for possible septic arthritis of the leftankle. [...] from the original note were not included. [facility] Office: [phone] Mikie Rodriguez DO, Theo Lerma DO, Stuart [...] Avila MD, Alberto Perze MD, Teresa Quintero, UTILITY AIRCREWMAN, Tika Tapia CNP, Mary Meléndez, PABLO, Cathleen Moran, SHIPPING PACKER, Abdirahman Bella, UTILITY AIRCREWMAN, eLslie Rao, UTILITY AIRCREWMAN, Madalyn Julien, UTILITY AIRCREWMAN, Ro Bernard, UTILITY AIRCREWMAN, Carter Charles, UTILITY AIRCREWMAN, Mckayla Bertrand PA-C, Eli Fu, FÉLIX, Razia Figueroa, FÉLIX, Keri Walker, PABLO, Sherrie Rea, UTILITY AIRCREWMAN, Moon Waldrop, UTILITY AIRCREWMAN, Ethel Soto, UTILITY AIRCREWMAN, Jazzy Javier, UTILITY AIRCREWMAN, Shelli Menon, UTILITY AIRCREWMAN [facility] IN-PATIENT SERVICE [facility] Progress Note 01/23/2022 8:25 AM Name: Tip Ansari Acct: [id number] Room: Day: 3 Admit Date: 01/20/2022 10:23 [...] year old gentleman who initially presented to [facility] ED from the local long-term after he developed acute onset chills and shaking. He noted a wound to his left foot as well. Onset was abrupt, as he felt well earlier in the day. Patient was previously at [facility] in December for MRSA bacteremia with tricuspid [...] vancomycin and patient was discharged back to long-term CT imaging in the ER revealed no [...] drug use. Drugs: Cocaine, Opiates , Marijuana ([place]), and Methamphetamines (Crystal Meth). Hereports that he [...] C), Max:99.8 F (37.7 C) Recent Labs 01/21/22214501/22/2271901/22/22 1238 01/22/22 1634 POCGLU 129* 104 179* 95 I/O (24Hr): Intake/Output Summary (Last 24 hours) at 01/23/2022 0825 Last data filed at 01/23/2022 0628 Gross per 24 hour Intake Output 2300 ml Net -2300 ml Labs: Hematology: Recent Labs 01/20/22 1540 01/20/22 17501/21/22 0458 WBC 10.6 -- -- RBC 4.03* [...] 3.3* Recent Labs 01/20/22 1540 01/21/22 1427 01/21/22214501/22/2220 01/22/22 1238 01/22/22 1634 PROT 8.3 -- [...] Results Component Value Date PHART 7.380 12/16/2020 DPE0VAP 44.5 12/16/2020 PO2ART 94.4 12/16/2020 SUY0MGA 25.7 12/16/2020 NBEA NOT REPORTED 12/16/2020 PBEA 0.3 12/16/2020 [id number] 97.1 12/16/2020 FIO2 28 12/16/2020 Lab Results [...] to vancomycin - red man syndrome in [place] ED 4. Left ankle soft tissue infection - r/o osteomyelitis. MRI pending. Podiatry following. 5. Heroin abuse - SW to assist. Patient will return to long-term at d/c if able. 6. History of Hepatitis C 7. Essential hypertension - continue Maxide 8. Labs today 9. PICC vs midline at ID's discretion FABRICIO SYED DO 01/23/2022 8:25 AM * Theo Lerma DO - 01/22/2022 6:47 PM EDT Images from the original note were not included. [facility] Office: [phone] Mikie Rodriguez DO, Theo Lerma DO, Stuart [...] Quintero CNP, Tika Tapia CNP, Mary Meléndez, PABLO, Cathleen Moran, SHIPPING PACKER, Abdirahman Bella, UTILITY AIRCREWMAN, Leslie Rao, UTILITY AIRCREWMAN, Madalyn Julien, PABLO, Ro Bernard, PABLO, Carter Charles, PABLO, Mckayla Bertrand PA-C, Eli Fu, FÉLIX, Razia Figueroa, FÉLIX, Keri Walker, PABLO, Sherrie Rea, PABLO, Moon Waldrop, PABLO, Ethel Soto, PABLO, Jazzy Javier, PABLO, Shelli Menon CNP IN-PATIENT SERVICE [facility] Progress Note 01/22/2022 6:57 PM Name: Tip Ansari Acct: [id number] Room: IP Day: 2 Admit Date: 01/20/2022 10:23 PM PCP: No primary care provider on file. Code Status: Full Code Subjective: C/C: Sepsis Interval History Status: Ankle pain better controlled No further drainage from wound Patient still feels somewhat anxious Reporting diaphoresis at night Data Base Updates: Afebrile Thqisws321 High Hemoglobin A1C5.6 Blood cultures remain negative Brief History: As documented in the medical record: Tip Ansari is a 42 y.o. Non- / non male who presents with No chief complainton file and is admitted to the hospital for the management of Sepsis (HCC). Patient presents to [place] emergency room from the local long-term after he developed abrupt onset of chills and shaking and noting a wound to his left foot. Patient states that he woke up today feeling normal and as he was watching TV he had a sudden onset of feeling cold which then extended into course shaking and shivering despite covering up with a blanket and drinking warm fluids. Patient was a previous hospital [facility] and was treated for MRSA bacteremia with [...] been using heroin He is back in long-term for outstanding warrants and probation violations Past Medical History: has a past medical history of Abscess, Chronic hepatitis C without hepatic coma (HCC), COPD (chronic obstructive pulmonary disease) (HCC), Depression, and Drug addiction (HCC). Social History: reports that he has quit smoking. He has never used smokeless tobacco. He reports current drug use. Drugs: Cocaine, Opiates , Marijuana ([place]), and Methamphetamines (Crystal Meth). Hereports that he [...] Intake/Output Summary (Last 24 hours) at 01/22/2022 9571 Last data filed at 01/22/2022 1800 Gross [...] Results Component Value Date PHART 7.380 12/16/2020 [id number] 44.5 12/16/2020 PO2ART 94.4 12/16/2020 RZU3FYF 25.7 12/16/2020 NBEA NOT REPORTED 12/16/2020 PBEA 0.3 12/16/2020 [id number] 97.1 12/16/2020 FIO2 28 12/16/2020 Lab Results [...] were not included. [facility] - Infectious diseases evaluation admission date 01/20/2022 reason for consultation: Sepsis Vanco allergy Impression : Current: Vancomycin reaction- Tachycardia fever red neck syndrome in [place] Pulmonary septic emboli, MRSA -cavitations improved, nodules [...] red neck syndrome infection with fever in [place] and again here Label allergic to vanco Left ankle MRI looking for a septic joint or tendinitis BC nathaniel albicans x 1, explains elevated procal despite stable appearance Asking for GIANFRANCO Start fluconazole 01/22 Keep doxy for pulm nodules - to help resolve past MRSA septic pulm emboli Infection Control Recommendations [place] Precautions Contact Isolation Antimicrobial Stewardship Recommendations Simplification of therapy IV to oral conversion Coordination ofOutpatient Care: Estimated Length of IV antimicrobials: Patient will need Midline / picc Catheter Insertion: Patient will need SNF: Patient will need outpatient wound care: History of Present Illness: Initial history: Tip Ansari is a 42 y.o.-year-old male sent to patient from long-term because of rigors and fever as well as the left foot wound that seems to have started suddenly in long-term Recently seen 12/2021 by pa [facility] for MRSA bacteremia, right knee septic [...] Patient was admitted 12/13 and discharged on 2/9 with plan of dalbavancin weekly X2 and [...] Acid, Whole Blood3.3 High Sed Rate58 High Tksnyihovlpzp99.47 High Micro: BC One f two, 01/21 [...] use: Yes Types: Cocaine, Opiates , Marijuana ([place]), Methamphetamines (Crystal Meth) Comment: quit heroin Nov [...] Friends and Family: Not on file Attends Taoist Services: Not on file Active Member of [...] Andrea MD Office: Perfect serve / office [phone] * Erin Rodrigues, FIELD MANAGER - 01/22/2022 4:10 PM EDT Physical Therapy Facility/Department: [facility] CAR 2 Daily Treatment Note [...] Treatment Minutes: 54 Minutes Erin Rodrigues PTA * Mckayla Vela OT - 01/22/2022 2:21 PM EDT Images from the original note were not included. Occupational Therapy [facility] Occupational Therapy Not Seen Note DATE: [...] faxed to MRI. * Nilsa Calderon RD, LD - 01/21/2022 4:11 PM EDT Comprehensive Nutrition [...] loss Fluid Accumulation: No significant fluid accumulation Chief Customer Officer Strength: Not Performed Estimated Daily Nutrient Needs: [...] kg) (12/13/21 bed scale per chart review) [place] Body Weight: 178 lbs; % [place] Body Weight 90.4 % BMI: 21.8 BMI [...] Discharge Planning: Too soon to determine Contact: [phone] * Liz Rose, PT - 01/21/2022 3:35 PM EDT Physical Therapy Facility/Department: [place] [id number] Initial Assessment NAME: Tip Ansari : 1980 [...] Ambulation Assistance: Independent Transfer Assistance: Independent Active Wire Stripping Machine Operator: No Cognition Cognition Overall Cognitive Status: [...] 13 Minutes Liz Rose PT * Emily Lockhart [facility] - 01/21/2022 1:39 PM EDT [facility] Pharmacokinetic Monitoring Service - Vancomycin Tip [...] from the original note were not included. [facility] Office: [phone] Mikie Rodriguez DO, Theo Lerma DO, Stuart [...] Perez MD, Teresa Quintero CNP, Tika Tapia UTILITY AIRCREWMAN, Mary Meléndez, UTILITY AIRCREWMAN, Cathleen Moran, SHIPPING PACKER, Abdirahman Bella, UTILITY AIRCREWMAN, Leslie Rao, UTILITY AIRCREWMAN, Madalyn Julien, UTILITY AIRCREWMAN, Ro Bernard, UTILITY AIRCREWMAN, Carter Charles CNP, Mckayla Bertrand PA-C, Eli Fu, FÉLIX, Razia Figueroa, FÉLIX, Keri Walker, UTILITY AIRCREWMAN, Sherrie Rea, UTILITY AIRCREWMAN, Moon Waldrop, UTILITY AIRCREWMAN, Ethel Soto, UTILITY AIRCREWMAN, Jazzy Javier, UTILITY AIRCREWMAN, Shelli Menon, UTILITY AIRCREWMAN IN-PATIENT SERVICE [facility] Progress Note 01/21/2022 1:33 PM Name: Tip Ansari Acct: [id number] Room: IP Day: 1 Admit Date: 01/20/2022 10:23 PM PCP: No primary care provider on file. Code Status: Full Code Subjective: C/C: Sepsis Interval History Status: Not much change Still reporting ankle pain Not sleeping Feels anxious Data Base Updates: Patient has been afebrile Fnsytrw688 High mg/dL LKI06rj/dL CREATININE0.73mg/dL Calcium8.6mg/dL Bikgzm416pmdb/L Potassium3.9 Lactic Acid, Whole Blood3.3 High Sed Rate58 High Ankle x-ray: Impression: 1. Soft tissue swelling along the heel of the left foot. No evidence of osteomyelitis. Blood cultures negative Specimen Source: Blood Specimen Description.BLOOD Special Ongvwsqi4QY R WRIST CultureNO GROWTH 12 HOURS Brief History: As documented in the medical record: Tip Ansari is a 42 y.o. Non- / non male who presents with No chief complainton file and is admitted to the hospital for the management of Sepsis (HCC). Patient presents to [place] emergency room from the local long-term after he developed abrupt onset of chills and shaking and noting a wound to his left foot. Patient states that he woke up today feeling normal and as he was watching TV he had a sudden onset of feeling cold which then extended into course shaking and shivering despite covering up with a blanket and drinking warm fluids. Patient was a previous hospital [facility] from [facility] and was treated for MRSA bacteremia with [...] been using heroin He is back in long-term for outstanding warrants and probation violations Past Medical History: has a past medical history of Abscess, Chronic hepatitis C without hepatic coma (HCC), COPD (chronic obstructive pulmonary disease) (HCC), Depression, and Drug addiction (HCC). Social History: reports that he has quit smoking. He has never used smokeless tobacco. He reports current drug use. Drugs: Cocaine, Opiates , Marijuana ([place]), and Methamphetamines (Crystal Meth). Hereports that he [...] Results Component Value Date PHART 7.380 12/16/2020 RCC7GRQ 44.5 12/16/2020 PO2ART 94.4 12/16/2020 EUH0WCH 25.7 12/16/2020 NBEA NOT REPORTED 12/16/2020 PBEA 0.3 12/16/2020 [id number] 97.1 12/16/2020 FIO2 28 12/16/2020 Lab Results [...] DO 01/21/2022 1:33 PM documented in this [email or web address] Phone: 1(876) 937-344903-22-2022 Hospital Discharge instructions* Discharge Instr - CARLINE* [...] Information Primary Emergency Contact: Alisa Ansari Address: [place] [address] Relation: Parent Secondary Emergency Contact: jaida greenberg Mobile Relation: Aunt/Uncle Past Surgical History: Past Surgical History: Procedure Laterality Date ABSCESS DRAINAGE Left 2020 arm APPENDECTOMY FINGER SURGERY Right 5 th finger tendon repair FOOT DEBRIDEMENT Left 01/26/2022 INCISION AND DRAINAGE, BONE LEFT CALCANEOUS performed by Tip Grewal DPM at [facility] OR FOOT SURGERY Left 01/26/2022 INCISION AND DRAINAGE, BONE LEFT CALCANEOUS (Left Foot) PICC INSERTION VASCULAR ACCESS TEAM 01/25/2022 TYMPANOSTOMY TUBE PLACEMENT Bilateral Immunization History: There is no immunization history on file for this patient. 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[facility]) M00.061 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 Moderate tricuspid regurgitation I07.1 Hyperkalemia E87.5 Endocarditis I38 Sepsis ([facility]) A41.9 Staphylococcal arthritis of left ankle ([facility]) M00.072 Hyperglycemia R73.9 Sepsis due to Nathaniel species without acute organ dysfunction ([facility]) B37.7, R65.20 Sinus tachycardia R00.0 Septic bursitis of Achilles M71.10 Acute osteomyelitis of left calcaneus ([facility]) M86.172 Opiate withdrawal ([facility]) F11.23 Acute hematogenous osteomyelitis of left ankle ([facility]) M86.072 Isolation/Infection: Isolation Contact Patient [...] (79.2 kg) Mental Status: {IP PT MENTAL STATUS:40827} IV Access: { CARLINE IV ACCESS:730596331} Nursing Mobility/ADLs: Walking {CHP DME ADLs:960234033} Transfer {CHP DME ADLs:663521124} Bathing {CHP DME ADLs:789814886} Dressing {CHP DME ADLs:575039145} Toileting {CHP DME ADLs:089389360} Feeding {CHP DME ADLs:153665261} Grease Buffer {CHP DME ADLs:547113174} Med Delivery { CARLINE MED Delivery:621397219} Wound Care Documentation and Therapy: Wound 01/20/22 [...] days: 9 Elimination: Continence: Bowel: {YES / NO:50784} Bladder: {YES / NO:} Urinary Catheter: {Urinary Catheter:122880063} Colostomy/Ileostomy/Ileal Conduit: {YES / NO:} Date of Last BM: Intake/Output Summary (Last 24 hours) at 01/30/2022 1344 Last data filed at 01/30/2022 1020 Gross per 24 hour Intake 540 ml Output 3480 ml Net -2940 ml I/O last 3 completed shifts: In: 2897 [P.O.:1620; I.V.:927; IV Piggyback:350] Out: 4475 [Urine:4475] Safety Concerns: { CARLINE Safety Concerns:033890799} Impairments/Disabilities: { CARLINE Impairments/Disabilities:975796408} Nutrition Therapy: Current Nutrition Therapy: { CARLINE Diet List:385531124} Routes of Feeding: {[facility] DME Other Feedings:328713322} Liquids: {Quencher Operator liquid thickness:72766} Daily Fluid Restriction: {[facility] DME Yes amt example:908096414} Last Modified Barium Swallow with Video (Video Swallowing Test): {Done Not Done Date:} Treatments at the Time of Hospital Discharge: Respiratory Treatments: Oxygen Therapy: {Therapy; copd oxygen:45659} Ventilator: { CC Vent List:308238818} Rehab Therapies: {THERAPEUTIC INTERVENTION:7764473662} Weight Bearing Status/Restrictions: {[facility] Weight Bearin} Other Medical Equipment (for information only, NOT a DME order): {EQUIPMENT:403756244} Other Treatments: Patient's personal belongings (please select all that are sent with patient): {[facility] DME Belongings:662139219} RN SIGNATURE: {Esignature:098431483} CASE MANAGEMENT/SOCIAL WORK SECTION Inpatient Status Date: Readmission Risk Assessment Score: Readmission Risk Risk of Unplanned Readmission: 22 Discharging to Facility/ Agency Name: Address: Phone: Fax: Dialysis Facility (if applicable) Name: Address: Dialysis Schedule: Phone: Fax: Visitor Services Technician/Woodworking Belt Sander signature: {Esignature:893187771} PHYSICIAN SECTION Prognosis: Good Condition at Discharge: [...] and that he requires Home Care for cohccht14 days. Update Admission H&P: No change in [...] need to follow up with Dr. Fabricio Syde, . Call when you get home to schedule or confirm your appointment. Call your Bellows Charger Assembler office if you have any questions or concerns. documented in this [email or web address] Phone: [phone] 620-333103-02-2022 Hospital Discharge instructions* Instructions* Jessica Villaseñor MD - 01/10/2022 Discussed results with patient. He has no intention of hurting self. We discussed patient going to drug rehab. Patient has no primary care thus was referred to Dr. More. Patient is also continue going to [facility] for his vancomycin injection weekly. documented in this [email or web address] Phone: [phone] 391-603602-09-2022 History of Present illness Narrative* Christopher Moss RN - 12/20/2021 1:54 PM EST Patient to IR for right shoulder aspirate. JR PA and GL/BD RTs at bedside. Site prepped and draped, area numbed with lidocaine. Access obtained and scant amount red fluid obtained by lavage. Specimen to be sent to lab by fiction writer. Access removed and band aid placed to site. Patient tolerated well and taken to IR holding area awaiting transport. * Marisol Andrea MD - 12/20/2021 12:50 PM EST Images from the original note were not included. [facility] - Infectious diseases evaluation admission [...] 45.9 anticipate 6 weeks iv Ab at [place] Due to ongoing drug use, dalbavancin weekly x 2, then will need to repeat, vs FU w po doxy FU outpt Need 2 BC in [address] chest in a month Infection Control Recommendations [place] Precautions Contact Isolation Antimicrobial Stewardship Recommendations Simplification [...] he is a heroin user Went to [place] with shortness of breath and fever, hypoxic [...] 12/16. C/o persistent pain of the joints. / Afebrile, VS stable, tachycardic. Comfortable on room [...] with right-sided PICC line. C T scan [facility] 12/11 suggestive of multifocal septic emboli [...] use: Yes Types: Cocaine, Opiates , Marijuana (North), Methamphetamines (Crystal Meth) Comment: quit heroin Nov [...] Friends and Family: Not on file Attends Taoist Services: Not on file Active Member of [...] diversion. Marisol Andrea, Infectious Diseases * Liz Rose PT - 12/20/2021 10:00 AM EST Images from the original note were not included. Physical Therapy Physical Therapy Cancel Note DATE: 12/20/2021 NAME: Tip Ansari : 1980 Patient not seen this date for Physical Therapy due to:Tip Ansari refused PT Patient Declined: stating had a bad night, do not return today . PT will attempt at later date * Kwabena Ashraf, COMMERCIAL ANNOUNCER - LIVESTOCK LABORER - 12/20/2021 9:17 AM EST Images from the original note were not included. [employer] Telephone Sex Worker Progress Note Date: 12/20/2021 Patient name: Tip [...] while caught snoring drugs in room per php software engineer of Systems Medications: Scheduled Meds: [START ON [...] , please call back with any concerns [place] Telephone Sex Worker [facility]. [phone] * Alexei Parkerignacio, [facility] - 12/20/2021 8:54 AM EST [facility] Pharmacokinetic Monitoring Service - Vancomycin Consulting [...] loss Fluid Accumulation: No significant fluid accumulation Chief Customer Officer Strength: Not Performed Estimated Daily Nutrient Needs: Energy (kcal): 25-28 kcal/kg = 2333-2623 kcals/day; Weight Used for Energy Requirements: Current [...] lb (85.7 kg) (05/2021 per chart review) [place] Body Weight: 184 lbs; % [place] Body Weight 93.6 % BMI: 22.7 BMI [...] Discharge Planning: Too soon to determine Contact: [phone] * Liz Rose, PT - 12/19/2021 1:35 PM EST Physical Therapy Facility/Department: [facility] RENAL//MED SURG Daily Treatment Note NAME: iTp Ansari : 1980 Date of Service: 12/19/2021 [...] Minutes: 28 Minutes Liz Rose PT * MIAN Arenas NP - 12/19/2021 8:51 AM EST Images from the original note were not included. [employer] Telephone Sex Worker Progress Note Date: 12/19/2021 Patient name: Tip [...] on echo after ATB course as OP [place] Telephone Sex Worker [facility]. [phone] * Marisol Andrea MD - 12/19/2021 8:23 AM EST Images from the original note were not included. [facility] - Infectious diseases evaluation admission [...] had septic pulmonary emboli Infection Control Recommendations [place] Precautions Contact Isolation Antimicrobial Stewardship Recommendations Simplification [...] he is a heroin user Went to [place] with shortness of breath and fever, hypoxic [...] with right-sided PICC line. C T scan [facility] 12/11 suggestive of multifocal septic emboli [...] use: Yes Types: Cocaine, Opiates , Marijuana (North), Methamphetamines (Crystal Meth) Comment: quit heroin Nov [...] Friends and Family: Not on file Attends Taoist Services: Not on file Active Member of [...] Internal Medicine Resident, PGY-1 Infectious Disease Service, [facility]. I have discussed the care of the [...] from the original note were not included. [facility] Office: [phone] Mikie Rodriguez DO, Theo Lerma DO, Stuart Natarajan DO, Harpal Tran DO, Prashanth Sadler MD, Deana Raza MD, Florencia Canela MD, Tess Ford MD, Yuliana Saenz MD, Leodan Mak MD, Marimar Ren MD, Fabricio Syed DO, Kyle Broussard DO, Juan Driver MD, Sophia Agustin, DO, MD Melony, Jodi Bain MD, Palomo Drummond MD, Radha Avila MD, Alberto Perez MD, Teresa Quintero, UTILITY AIRCREWMAN, Tika Tapia, UTILITY AIRCREWMAN, Mary Meléndez, UTILITY AIRCREWMAN, Cathleen Moran, SHIPPING PACKER, Abdirahman Bella, UTILITY AIRCREWMAN, Leslie Rao, UTILITY AIRCREWMAN, Madalyn Dixon, UTILITY AIRCREWMAN, Ro Bernard, UTILITY AIRCREWMAN, Carter Charles, UTILITY AIRCREWMAN, Mckayla Bertrand, PA-C, Eli Fu, DNP, Razia Figueroa, DNP, Keri Walker, UTILITY AIRCREWMAN, Sherrie Rea, UTILITY AIRCREWMAN, Moon Waldrop, UTILITY AIRCREWMAN, Ethel Soto, UTILITY AIRCREWMAN, Jazzy Javier, UTILITY AIRCREWMAN, Shelli Menon, UTILITY AIRCREWMAN [facility] IN-PATIENT SERVICE [facility] Progress Note 12/19/2021 8:19 AM Name: Tip Ansari Acct: [id number] Room: 0316/0316-01 Day: 6 Admit Date: 12/13/2021 6:34 PM [...] with weakness. He was directly admitted from [facility] Dec 13 for the management of Septic embolism (HCC). Pt has used Heroin intermittently several years Presented to [facility] ED 12/11 with 2 day hx [...] drug use. Drugs: Cocaine, Opiates , Marijuana ([place]), and Methamphetamines (Crystal Meth). Hereports that he [...] Results Component Value Date PHART 7.380 12/16/2020 [id number] 44.5 12/16/2020 PO2ART 94.4 12/16/2020 WBO5RVJ 25.7 12/16/2020 NBEA NOT REPORTED 12/16/2020 PBEA 0.3 12/16/2020 I0GNSWQX 97.1 12/16/2020 FIO2 28 12/16/2020 Lab Results [...] seen. Mild MR noted. Calcium8.4 Low mg/dL Ujeppx266 Low mmol/L Potassium5.4 High Follow-up chest x-ray: [...] file. Notify PCP of discharge * Jaida Pope, OT - 12/18/2021 4:44 PM EST Occupational [...] ADL Inpatient CMS G-Code Modifier : CK (02/07/22 1643) Goals Short term goals Time Frame for [...] Time Individual Concurrent Group Co-treatment Time In 1536 Time Out 1600 Minutes 23 Timed Code Treatment Minutes: 15 Minutes (ADL) BREE Balderrama, OTR/L * Liz Rose, PT - 12/18/2021 1:25 PM EST Physical Therapy Facility/Department: [facility] RENAL//MED SURG Daily Treatment Note NAME: Tip Ansari : 1980 Date of Service: 12/18/2021 No chief complaint on file. Weakness, chest pain, shortness of breath Tip Ansari is a 41 y.o. male who presents with weakness. Pt was admitted from [facility] Dec 13 for the management of Septic [...] from the original note were not included. [facility] Office: [phone] Mikie Rodriguez DO, Theo Lerma DO, Stuart [...] Tapia CNP, Mary Meléndez CNP, Cathleen Moran, CHANTALE, Abdirahman Bella CNP, Leslie Rao CNP, Madalyn Dixon CNP, Ro Bernard UTILITY AIRCREWMAN, Carter Charles CNP, Mckayla Bertrand, CAROL, Eli Fu, FÉLIX, Razia Figueroa, FÉLIX, Keri Walker, UTILITY AIRCREWMAN, Sherrie Rea, PABLO, Moon Waldrop CNP, Ethel Soto CNP, Jazzy Javier CNP, Shelli Menon CNP [facility] IN-PATIENT SERVICE [facility] Progress Note 12/18/2021 12:26 PM Name: Tip Ansari Acct: [id number] Room: [address] [place] [address] Day: 5 Admit Date: 12/13/2021 6:34 PM [...] with weakness. He was directly admitted from [facility] Dec 13 for the management of Septic embolism (HCC). Pt has used Heroin intermittently several years Presented to [facility] ED 12/11 with 2 day hx [...] drug use. Drugs: Cocaine, Opiates , Marijuana (North), and Methamphetamines (Crystal Meth). Hereports that he [...] No results for input(s): PROT, LABALBU, LABA1C, W8UBFFZ, S0CXSOF, FT4, TSH, AST, ALT, LDH, GGT, ALKPHOS, LABGGT, BILITOT, BILIDIR, AMMONIA, AMYLASE, LIPASE, LACTATE, CHOL, HDL, LDLCHOLESTEROL, CHOLHDLRATIO, TRIG, VLDL, VUV12UY, PHENYTOIN, PHENYF, URICACID, POCGLU in the last 72 hours. ABG: Lab Results Component Value Date PHART 7.380 12/16/2020 [id number] 44.5 12/16/2020 PO2ART 94.4 12/16/2020 ZEE0ZUB 25.7 12/16/2020 NBEA NOT REPORTED 12/16/2020 PBEA 0.3 12/16/2020 [id number] 97.1 12/16/2020 FIO2 28 12/16/2020 Lab Results [...] a bolus of normal saline andmonitor 9. supply chain systems manager to help with discharge planning for outpatient IV antibiotics, can be discharged once that is arranged Marimar Ren MD 12/18/2021 12:26 PM * Kwabena Ashraf, COMMERCIAL ANNOUNCER - LIVESTOCK LABORER - 12/18/2021 10:17 AM EST Images from the original note were not included. [employer] Telephone Sex Worker Progress Note Date: 12/18/2021 Patient name: Tip [...] on echo after ATB course as OP [place] Telephone Sex Worker [facility]. [phone] * Marisol Andrea MD - 12/18/2021 9:24 AM EST Images from the original note were not included. [facility] - Infectious diseases evaluation admission [...] weekly vs dalbavancin weekly Infection Control Recommendations [place] Precautions Contact Isolation Antimicrobial Stewardship Recommendations Simplification [...] he is a heroin user Went to [place] with shortness of breath and fever, hypoxic [...] 2 12/18 pending Imaging: C T scan [facility] 12/11 suggestive of multifocal septic emboli [...] use: Yes Types: Cocaine, Opiates , Marijuana ([place]), Methamphetamines (Crystal Meth) Comment: quit heroin Nov [...] Friends and Family: Not on file Attends Taoist Services: Not on file Active Member of [...] Internal Medicine Resident, PGY-1 Infectious Disease Service, [facility]. I have discussed the care of the [...] DO PGY-2 Orthopedic Surgery 4:33 AM 12/18/2021 * Carter Cormier [facility] - 12/18/2021 2:36 AM EST [facility] Pharmacokinetic Monitoring Service - Vancomycin Consulting [...] were not included. [facility] - Infectious diseases evaluation Progress [...] blood culture still negative Infection Control Recommendations [place] Precautions Contact Isolation Antimicrobial Stewardship Recommendations Simplification [...] he is a heroin user Went to [place] with shortness of breath and fever, hypoxic [...] wrist: No growth Imaging: C T scan [facility] 12/11 suggestive of multifocal septic emboli [...] use: Yes Types: Cocaine, Opiates , Marijuana ([place]), Methamphetamines (Crystal Meth) Comment: quit heroin Nov [...] Friends and Family: Not on file Attends Taoist Services: Not on file Active Member of [...] Dumont MD Office: Perfect serve / office [phone] * Elvia Peralta, COMMERCIAL ANNOUNCER - UTILITY AIRCREWMAN - 12/17/2021 8:57 AM EST Images from the original note were not included. [employer] Telephone Sex Worker Progress Note Date: 12/17/2021 Patient name: Tip [...] Continuous Infusions: sodium chloride CBC: Recent Labs 12/15/2114 12/16/2102 12/17/21 0547 WBC 8.3 7.4 6.2 HGB 9.8* 9.7* 9.4* PLT 140 163 188 BMP: Recent Labs 12/15/2151312/16/21 0602 12/17/21 0547 NA [...] echo after ATB course as OP [place] Telephone Sex Worker [facility]. [phone] * Main Balderas DO - 12/17/2021 8:41 AM EST Orthopedic Progress Note Patient: iTp Ansari, 41 y.o. male Date of : [...] - Please reach out to ortho resident intermission coordinator with any questions - Follow up w/ Dr. Barajas as needed outpatient . * Marimar Ren MD - 12/17/2021 8:40 AM EST Images from the original note were not included. [facility] Office: [phone] Mikie Rodriguez DO, Theo Lerma DO, Stuart [...] Quintero CNP, Tika Tapia CNP, Mary Meléndez, UTILITY AIRCREWMAN, Cathleen Moran, SHIPPING PACKER, Abdirahman Bella, UTILITY AIRCREWMAN, Leslie Rao, UTILITY AIRCREWMAN, Madalyn Dixon, UTILITY AIRCREWMAN, Ro Bernard, UTILITY AIRCREWMAN, Carter Charles CNP, DONOVAN Hunter-Junior, Eli Fu, DNP, Razia Figueroa, DNP, Keri Walker, UTILITY AIRCREWMAN, Sherrie Rea, UTILITY AIRCREWMAN, Moon Waldrop, UTILITY AIRCREWMAN, Ethel Soto, UTILITY AIRCREWMAN, Jazzy Javier, UTILITY AIRCREWMAN, Shelli Menon, UTILITY AIRCREWMAN [facility] IN-PATIENT SERVICE [facility] Progress Note 12/17/2021 12:05 PM Name: Tip Ansari Acct: [id number] Room: 0316/0316-01 IP Day: 4 Admit Date: [...] with weakness. He was directly admitted from [facility] Dec 13 for the management of Septic embolism (HCC). Pt has used Heroin intermittently several years Presented to [facility] ED 12/11 with 2 day hx [...] drug use. Drugs: Cocaine, Opiates , Marijuana ([place]), and Methamphetamines (Crystal Meth). Hereports that he [...] CRP 62.9* -- 56.1* Chemistry: Recent Labs 12/15/21 0514 12/16/21 0602 12/17/21 [...] Results Component Value Date PHART 7.380 12/16/2020 [id number] 44.5 12/16/2020 PO2ART 94.4 12/16/2020 HDS1DQL 25.7 12/16/2020 NBEA NOT REPORTED 12/16/2020 PBEA 0.3 12/16/2020 [id number] 97.1 12/16/2020 FIO2 28 12/16/2020 Lab Results [...] GI 7. Substance abuse outpatient rehab 8. supply chain systems manager to help with discharge planning for outpatient IV antibiotics Marimar Ren MD 12/17/2021 12:05 PM * Tariq Dumont MD - 12/16/2021 8:44 PM EST Images from the original note were not included. [facility] - Infectious diseases evaluation admission date 12/13/2021 reason for consultation: Septic pulmonary emboli Impression : Current: Pulmonary septic emboli with cavitary pneumonia MRSA septicemia Heroin use Chronic hepC Allergy severe to PNC Other: Discussion / summary of stay / plan of care Recommendations Continue Vanco for MRSA bacteremia GIANFRANCO to look for vegetations Repeat blood culture still negative Infection Control Recommendations [place] Precautions Contact Isolation Antimicrobial Stewardship Recommendations Simplification [...] he is a heroin user Went to [place] with shortness of breath and fever, hypoxic [...] X 2 MRSA Imaging: C T scan [facility] 12/11 suggestive of multifocal septic emboli [...] use: Yes Types: Cocaine, Opiates , Marijuana ([place]), Methamphetamines (Crystal Meth) Comment: quit heroin Nov [...] Friends and Family: Not on file Attends Taoist Services: Not on file Active Member of [...] Dumont MD Office: Perfect serve / office [phone] ATTESTATION: I have discussed the case, including [...] the resident/ student. Tariq Dumont MD. * Randallroland Evelio, [facility] - 12/16/2021 1:29 PM EST [...] you, Paco Fraser, PharmD, 12/16/2021 1:29 PM * Marimar Ren MD - 12/16/2021 9:35 AM EST Images from the original note were not included. [facility] Office: [phone] Mikie Rodriguez DO, Theo Lerma DO, Stuart Natarajan DO, Harpal Tran DO, Prashanth Sadler MD, Deana Raza MD, Florencia Canela MD, Tess Ford MD, Yuliana Saenz MD, Leodan Mak MD, Marimar Ren MD, Fabricio Syed DO, Kyle Broussard DO, Juan Driver MD, Sophia Agustin DO, MD Melony, Jodi Bain MD, Palomo Drummond MD, Radha Avila MD, Alberto Perez MD, Teresa Quintero UTILITY AIRCREWMAN, Tika Tapia UTILITY AIRCREWMAN, Mary Meléndez, UTILITY AIRCREWMAN, Cathleen Moran, SHIPPING PACKER, Abdirahman Bella, UTILITY AIRCREWMAN, Leslie Rao CNP, Madalyn Dixon CNP, Ro Bernard UTILITY AIRCREWMAN, Carter Charles CNP, Mckayla Bertrand PA-C, Eli Fu DNP, Razia Figueroa, FÉLIX, Keri Walker, PABLO, Sherrie Rea CNP, Moon Waldrop CNP, Ethel Soto CNP, Jazzy Javier CNP, hSelli Menon, UTILITY AIRCREWMAN [facility] IN-PATIENT SERVICE [facility] Progress Note 12/16/2021 12:34 PM Name: Tip Ansari Acct: [id number] Room: 0316- Day: 3 Admit Date: 12/13/2021 6:34 PM [...] with weakness. He was directly admitted from [facility] Dec 13 for the management of Septic embolism (HCC). Pt has used Heroin intermittently several years Presented to [facility] ED 12/11 with 2 day hx [...] drug use. Drugs: Cocaine, Opiates , Marijuana (North), and Methamphetamines (Crystal Meth). Hereports that he [...] this interval not displayed. Chemistry: Recent Labs 12/13/21191312/13/21 19112/14/21 0552 12/15/2151312/16/21 0602 NA 135 < > [...] Results Component Value Date PHART 7.380 12/16/2020 LVV3BPC 44.5 12/16/2020 PO2ART 94.4 12/16/2020 QLL9EJN 25.7 12/16/2020 NBEA NOT REPORTED 12/16/2020 PBEA 0.3 12/16/2020 H2SYSJXS 97.1 12/16/2020 FIO2 28 12/16/2020 Lab Results [...] GI 7. Substance abuse outpatient rehab 8. supply chain systems manager to help with discharge planning for outpatient IV antibiotics Marimar Ren MD 12/16/2021 12:34 PM * Marisol Andrea MD - 12/15/2021 6:42 PM EST Images from the original note were not included. [facility] - Infectious diseases evaluation admission date 12/13/2021 reason for consultation: Septic pulmonary emboli Impression : Current: Pulmonary septic emboli with cavitary pneumonia MRSA septicemia Heroin use Chronic hepC Allergy severe to PNC Other: Discussion / summary of stay / plan of care Recommendations Continue Vanco for MRSA bacteremia GIANFRANCO to look for vegetations Repeat blood culture still negative Infection Control Recommendations [place] Precautions Contact Isolation Antimicrobial Stewardship Recommendations Simplification [...] he is a heroin user Went to [place] with shortness of breath and fever, hypoxic [...] X 2 MRSA Imaging: C T scan [facility] 12/11 suggestive of multifocal septic emboli [...] use: Yes Types: Cocaine, Opiates , Marijuana (North), Methamphetamines (Crystal Meth) Comment: quit heroin Nov [...] Friends and Family: Not on file Attends Taoist Services: Not on file Active Member of [...] 15* MONOPCT 9 10 BMP: Recent Labs 12/13/21191312/13/21191312/14/2155112/15/21513 NA 135 < > 135 129* K [...] Andrea MD Office: Perfect serve / office [phone] * Susan Mistry RN - 12/15/2021 4:51 PM EST Patient admitted, consent signed and questions answered. Patient ready for procedure. Call light toreach with side rails up 2 of 2. No family at bedside with patient. History and physical complete. * Mckayla Bertrand PA-C - 12/15/2021 3:21 PM EST Images from the original note were not included. [facility] Office: [phone] Mikie Rodriguez DO, Theo Lerma DO, Stuart [...] Tapia CNP, Mary Meléndez CNP,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 Patient/family refused - Comment: Patientambulated in hallway with physical therapy) * 1037 (Not Given - Provider: Betzy Mckee RN - Reason: Patient/family refused - Comment: educated on ridalex villar) * 0846 (Not Given - Provider: Chasity Walker, ANSELMO - Reason: Patient/family refused) metoprolol tartrate (LOPRESSOR) tablet 12.5 mg (COMPLETED) 12.5 mg, Oral, ONCE, On Sat12/18/21 at 1645, For 1 dose, Administered only if heart rate is more than 110 after fluid bolus. * 1708 (Given - Provider: Ambreen Quigley RN) metoprolol tartrate (LOPRESSOR) tablet 12.5 mg 12.5 mg, Oral, 2 TIMES DAILY, First dose on Sat12/19/21 at 0930 * 1301 (Given - Provider: Betzy Mckee, ANSELMO) * 2327 (Given - Provider: Nato Hsieh, ANSELMO) * 0845 (Given - Provider: Chasity Walker, ANSELMO) * 2100 (Due) naloxone (NARCAN) injection 0.4 mg (COMPLETED) 0.4 mg, IntraVENous, ONCE, On Sat12/19/21 at 2315, For 1 dose * 2229 (Given - Provider: Nato Hsieh, RN) potassium chloride (KLOR-CON M) extended release [...] per day), First dose on Sat12/13/21 at 2100,For Line Patency: Peripheral IV = 5 mL; Midline or Central Line = 10 mL/lumen. If following IV pushmedication, administer flush at same rate as the IV push. Flush volume is determined by type of infusion therapy being given. For non-viscous solutions use: Peripheral IV = 5 mL Midline or Central Line = 10 mL/lumen For viscous solutions (i.e. blood components, parenteral nutrition, contrast media,or after obtaining blood sample) use: Peripheral IV = 10 mL Midline or Central Line = 20 mL/lumen * 0956 (Not Given - Provider: Ambreen Quigley RN - Reason: IV Fluid Infusing) * 2130 (Not Given - Provider: Nato Hsieh RN - Reason: IV Fluid Infusing) * 1038 (Not Given - Provider: Betzy Mckee RN - Reason: IV Fluid Infusing) * 0008 (Not Given - Provider: Nato Hsieh RN - Reason: IV Fluid Infusing) * 0848 (Not Given - Provider: Chasity Walker RN - Reason: IV Fluid Infusing) * 2100 (Due) sodium chloride tablet 1 g 1 g, Oral, 3 TIMES DAILY WITH MEALS, First dose on Sat12/18/21 at 0800 * 0956 (Given - Provider: Ambreen Quigley RN) * 1516 (Given - Provider: Ambreen Quigley RN) * 1806 (Not Given - Provider: Ambreen Quigley RN - Reason: Patient/family refused) * 0846 (Given - Provider: Betzy Mckee, RN) * 1200 (Not Given - Provider: Betzy Mckee RN - Reason: Patient/family refused) * 1758 (Not Given - Provider: Betzy Mckee RN - Reason: Patient/family refused) * 0845 (Given - Provider: Chasity Walker, ANSELMO) * 1248 (Given - Provider: Chasity Walker, ANSELMO) * 1700 (Due) vancomycin (VANCOCIN) 1250 mg in dextrose 5 % 250 mL IVPB (CANCELED) 1,250 mg (16.1 mg/kg), IntraVENous, at 166.7 mL/hr, Administer over 90 Minutes, EVERY 8 HOURS, First dose on Sat12/18/21 at 0900 * 0956 (New Bag - Provider: Ambreen Quigley RN) * 1126 (Stopped - Provider: Ambreen Quigley RN) * 1930 (New Bag - Provider: Ambreen Quigley RN) * 2130 (Stopped - Provider: Nato Hsieh RN) * 0055 (New Bag - Provider: Nato Hsieh RN) * 0226 (Stopped - Provider: Nato Hsieh, ANSELMO) * 0846 (New Bag - Provider: Betzy Mckee, ANSELMO) * 1054 (Stopped - Provider: Betzy Mckee RN) * 1808 (New Bag - Provider: Betzy Mckee RN) * 1942 (Stopped - Provider: Nato Hsieh RN) * 0035 (New Bag - Provider: Nato Hsieh, ANSELMO) * 0205 (Stopped - Provider: Nato Hsieh RN) * 0845 (New Bag - Provider: Chasity Walker, ANSELMO) * 1015 (Stopped - Provider: Chasity Walker, ANSELMO) vancomycin (VANCOCIN) 1250 mg in dextrose 5 % 250 mL IVPB 1,250 mg (16 mg/kg), IntraVENous, at 166.7 mL/hr, Administer over 90 Minutes, EVERY 12 HOURS, Firstdose (after last modification) on Radha 12/21/21 at 0100 vancomycin (VANCOCIN) 1500 mg in dextrose 5 % 250 mL IVPB (CANCELED) 1,500 mg (19.5 mg/kg), IntraVENous, at 166.7 mL/hr, Administer over 90 Minutes, EVERY 12 HOURS, First dose on Sat12/17/21 at 0200 * 0142 (New Bag - Provider: Betzy Walker RN) * 0312 (Stopped - Provider: Betzy Walker RN) vancomycin (VANCOCIN) intermittent dosing (placeholder) Medication Order// 0.9 % sodium chloride infusion (CANCELED) IntraVENous, at 75 mL/hr, CONTINUOUS, Starting on Sat12/18/21 at 1800 * 1705 (New Bag - Provider: Ambreen Quigley RN) Medication Order// 0.9 % sodium chloride infusion 25 mL, [...] Administer if oral route cannot be used. * 1301 (See Alternative - Provider: Betzy Mckee RN) acetaminophen (TYLENOL) tablet 650 mg(Linked Group 1) 650 mg, Oral, EVERY 6 HOURS PRN, Pain Mild (1-3), Fever, For temp greater than 100.4 F (38 C), Starting on Sat12/13/21 at 1840, Maximum dose of acetaminophen is 4000 mg from all sources in 24 hours. * 1301 (Given - Provider: Betzy Mckee RN) [...] Total) <1.0 CALL PHYSICIAN and 1 gram IVPBx 4 doses (4 gram Total) Infuse at [...] chew or crush. Dissolve flavored tablets completely in3 to 4 ounces of cold water; unflavored [...] Sat12/13/21 at 1840, May give oral solution ifpatient unable to tolerate tablet. K Lab Replacement [...] Total) < 2.7 CALL PHYSICIAN and 10 mEqIVPB x 6 doses (60 mEq Total) Infuse [...] PRN, Sleep, Starting on Sat12/18/21 at 2100 * 2319 (Given - Provider: Nato Hsieh RN) Order Group 1: acetaminophen (TYLENOL) tablet 650 [...] 3.1-3.5 40 mEq ORAL x 1 & amp;nbsp; 2.7-3.0 Refer to IV replacement orders < [...] unable to tolerate oral tablet. K Lab &a mp;nbsp; &a mp;nbsp;Replacement Action 3.1 to 3.5 &amp ;nbsp; 40 mEq ORAL x 1 Under 3.1 [...] over a 5 to 10 minute period. Mayfurther dilute if GI adverse effects occur.
Or potassium chloride 10 mEq/100 mL IVPB (Peripheral Line)Jump to med 10 mEq, IntraVENous, at 100 mL/hr, PRN, Potassium Replacement, Starting on Sat12/13/21 at 1840
K Lab Replacement Action 2.7-3.0 10 mEq IVPB x 6 doses (60 mEq Total) <2.7 CALL PHYSICIAN and 10 mEq IVPB x 6 doses (60 mEq Total) Infuse at 10 mEq/hr Repeat Potassium lab 1 hour after final administration. Not for use in patients with CrCl less than 30 mL/min.
Medication Order// dalbavancin (DALVANCE) 1,500 mg in dextrose 5 % 500 mL IVPB (COMPLETED) 1,500 mg, IntraVENous, at 1,000 mL/hr, Administer over 30 Minutes, ONCE, On 01/06/22 at 1745, For 1 dose, Dalbavancin (DALVANCE) not compatible with NS or any saline-based solution. Final solutionconcentration range from 1 mg/mL to 5 mg/mL. Infuse over 30 minutes. If a common IV line is being used to administer other drugs in addition to dalbavancin, the line should be flushed before and after each infusion with D5W. * 1808 (New Bag - Provider: Sanjuana Serrano, ANSELMO) * 1915 (Stopped - Provider: Sanjuana Serrano, ANSELMO) Medication Order// naloxone (NARCAN) injection 2 mg (COMPLETED) 2 mg, IntraMUSCular, ONCE, On Sat01/10/22 at 1830, For 1 dose * 1822 (Given - Provider: Suze Duffy, ANSELMO) ondansetron (ZOFRAN) injection 4 mg (COMPLETED) 4 mg, IntraMUSCular, ONCE, On Sat01/10/22 at 1830, For 1 dose * 1823 (Given - Provider: Suze Duffy, ANSELMO) Medication Order// 0.9 % sodium chloride IV bolus 2,190 mL (COMPLETED) 2,190 mL (30 mL/kg 73 kg), IntraVENous, at 4,380 mL/hr, Administer over 30 Minutes, ONCE, On 01/20/22 at 1700, For 1 dose * 1611 (New Bag - Provider: Suze Duffy, ANSELMO) * 1851 (Stopped - Provider: Suze Duffy RN) acetaminophen (TYLENOL) tablet 650 mg (COMPLETED) 650 mg, Oral, ONCE, On 01/20/22 at 1730, For 1 dose, Maximum dose of acetaminophen is 4000 mg from all sources in 24 hours. * 1727 (Given - Provider: Alessandra Gross RN) diphenhydrAMINE (BENADRYL) injection 50 mg (COMPLETED) 50 mg, IntraVENous, ONCE, On 01/20/22 at 1700, For 1 dose * 1706 (Given - Provider: Suze Duffy, ANSELMO) famotidine (PEPCID) injection 20 mg (COMPLETED) 20 mg, IntraVENous, ONCE, On 01/20/22 at 1700, For 1 dose, IV Push over minimum of 2 minutes - Dilute with 10 mL NS * 1702 (Given - Provider: Suze Duffy RN) linezolid (ZYVOX) IVPB 600 mg 600 mg, IntraVENous, at 300 mL/hr, Administer over 60 Minutes, EVERY 12 HOURS, First dose on 01/20/22 at 1745, Avoid aged, smoked, or fermented foods including cheese, sour cream, soy sauce, sauerkraut, yogurt, sausage, pepperoni, salami, and dried fruit. Limit caffeine. * 1810 (New Bag - Provider: Suze Duffy RN) * 193 (Stopped - Provider: Suze Duffy RN) methylPREDNISolone sodium (SOLU-MEDROL) injection 125 mg (COMPLETED) 125 mg, IntraVENous, ONCE, On 01/20/22 at 1700, For 1 dose * 1704 (Given - Provider: Suze Duffy RN) vancomycin (VANCOCIN) 1,500 mg in dextrose 5 % 250 mL IVPB (COMPLETED) 1,500 mg, IntraVENous, at 166.7 mL/hr, Administer over 90 Minutes, ONCE, On 01/20/22 at 1600, For 1 dose * 1618 (New Bag - Provider: Suze Duffy RN) * 1656 (Stopped - Provider: Suze Duffy RN) Medication Order//10/2022 0.9 % sodium chloride infusion 1,000 mL, IntraVENous, at 125 mL/hr, Administer over 8 Hours, CONTINUOUS, Starting on 01/20/22 at 1415 * 1518 (New Bag - Provider: Suze Duffy RN) * 1933 (Stopped - Provider: Suze Duffy RN) Medication Order// iopamidol (ISOVUE-370) 76 % injection 75 mL (COMPLETED) 75 mL, IntraVENous, IMG ONCE PRN, Other, Starting on 01/20/22 at 1924, For 1 dose * 192 (Given - Provider: Jaida Shoemaker) Medication Order// 0.9 % sodium chloride bolus (COMPLETED) 500 mL (6.19 mL/kg), IntraVENous, at 247.9 mL/hr, Administer over 121 Minutes, ONCE, On Sat01/28/22at 1445, For 1 dose * 1422 (New Bag - Provider: Sophia Bui RN) * 1755 (Stopped - Provider: Sophia Bui RN) bupivacaine liposome (EXPAREL) 1.3 % injection 133 mg 133 mg (10 mL), Infiltration, ONCE, On Sat01/26/22 at 1545, For 1 dose caspofungin (CANCIDAS) 150 mg in sodium chloride 0.9 % 250 mL IVPB 150 mg, IntraVENous, EVERY 24 HOURS, First dose on Radha 01/25/22 at 1030, Until Discontinued * 2233 (New Bag - Provider: Cameron Barrios RN) * 2340 (Stopped - Provider: Cameron Barrios RN) * 2245 (New Bag - Provider: Ross Lan RN) * 0002 (Stopped - Provider: Ross Lan RN) * 2200 (Due - Provider: Ethel Christensen [facility]) doxycycline hyclate (VIBRA-TABS) tablet 100 [...] dairy, calcium, iron, magnesium, aluminum or zinc. * 0902 (Given - Provider: Dunia Hernandez RN) enoxaparin (LOVENOX) injection 40 mg 40 mg, SubCUTAneous, DAILY, First dose on Sat01/21/22 at 0900 * 0930 (Given - Provider: Dunia Hernandez RN) * 0815 (Given - Provider: Ambreen Ramírez RN) * 0846 (Not Given - Provider: Elvin Ricketts RN - Reason: Patient/family refused) fluticasone (FLONASE) 50 MCG/ACT nasal spray 1 spray 1 spray, Each Nostril, DAILY, First dose on Sat01/30/22 at 1030 * 1034 (Given - Provider: Elvin Ricketts RN) guaiFENesin (MUCINEX) extended release tablet 600 mg 600 mg, Oral, 2 TIMES DAILY, First dose on Sat01/30/22 at 1030, Do not crush or break. * 1034 (Given - Provider: Elvin Ricketts RN) * 2100 (Due) levoFLOXacin (LEVAQUIN) tablet 500 mg 500 mg, Oral, DAILY, First dose on Sat01/30/22 at 0900, Do not take with dairy products or calcium-fortified juices. Tube feeding (TF) interaction, obtain physician order to manage. Recommend holdingTF for 2 hrs before and 2 hrs after dose. Due to decreased absorption do not give by J tube. * 0846 (Given - Provider: Elvin Ricketts RN) metoprolol (LOPRESSOR) injection 5 mg (COMPLETED) 5 mg, IntraVENous, ONCE, On Sat01/28/22 at 0715, For 1 dose, DO NOT ADMINISTER IF HEART RATE LESS THAN 60 * 0722 (Given - Provider: Cameron Barrios RN) [...] mL Midline or Central Line = 20 mL/lumen,Recovery(Cath) * 0930 (Given - Provider: Dunia Hernandez RN) * 1920 (Given - Provider: Cameron Barrios RN) * 0815 (Given - Provider: Ambreen Ramírez RN) * 2104 (Not Given - Provider: Ross Lan RN - Reason: IV Fluid Infusing) * 0847 (Not Given - Provider: Elvin Ricketts RN - Reason: Other - Comment: duplicate order) * 2100 (Due) sodium chloride flush 0.9 % injection [...] Midline or Central Line = 20 mL/lumen * 0930 (Given - Provider: Dunia Hernandez RN) * 192 (Not Given - Provider: Cameron Barrios RN - Reason: IV Fluid Infusing) * 0815 (Given - Provider: Ambreen Ramírez, ANSELMO) * 2044 (Not Given - Provider: Ross Lan RN - Reason: IV Fluid Infusing) * 0847 (Given - Provider: Elvin Ricketts RN) * 0900 (Canceled Entry - Provider: Elvin Ricketts RN) tigecycline (TYGACIL) 100 mg in sodium chloride 0.9 % 100 mL IVPB (COMPLETED) 100 mg, IntraVENous, at 100 mL/hr, Administer over 60 Minutes, ONCE, On [place] 01/28/22 at 1400, For 1 dose, Start once blood cultures have been obtained. * 1446 (New Bag - Provider: Sophia Bui, ANSELMO) * 1622 (Stopped - Provider: Sophia Bui RN) tigecycline (TYGACIL) 50 mg in sodium chloride 0.9 % 100 mL IVPB (CANCELED) 50 mg, IntraVENous, at 100 mL/hr, Administer over 60 Minutes, EVERY 12 HOURS, First dose on 01/29/22 at 0200 * 0238 (New Bag - Provider: Cameron Barrios RN) * 0342 (Stopped - Provider: Cameron Barrios RN) * 1404 (New Bag - Provider: Ambreen Ramírez, RN) * 1528 (Stopped - Provider: Ambreen Ramírez, RN) Medication Order// 0.9 % sodium chloride infusion (CANCELED) IntraVENous, at 100 mL/hr, CONTINUOUS, Starting on 01/28/22 at 1130 * 1114 (New Bag - Provider: Dunia Hernandez, RN) * 1756 (New Bag - Provider: Sophia Bui, RN) * 0239 (New Bag - Provider: Cameron Barrios RN) * 1406 (New Bag - Provider: Ambreen Ramírez, ANSELMO) * 0914 (Stopped - Provider: Elvin Ricketts RN) Medication Order// 0.9 % sodium chloride infusion 25 mL, IntraVENous, at 100 mL/hr, PRN, If patient receiving piggyback infusions without ordered maintenance IV fluids or with frequent/long duration piggyback infusions, Starting on Radha 01/25/22 at 1044, Administer at the same rate as the piggyback being infused. * 1516 (Stopped - Provider: Elvin Ricketts RN) acetaminophen (TYLENOL) suppository 650 mg(Linked Group 1) 650 mg, Rectal, EVERY 6 HOURS PRN, Pain Mild (1-3), Fever, For temp greater than 100.4 F (38 C), Starting on 01/20/22 at 2236, Administer if oral route cannot be used. * 1105 (See Alternative - Provider: Dunia Hernandez RN) * 1738 (See Alternative - Provider: Sophia Bui, ANSELMO) * 1846 (See Alternative - Provider: Ambreen Ramírez, RN) * 1612 (See Alternative - Provider: Elvin Ricketts RN) acetaminophen (TYLENOL) tablet 650 mg(Linked Group 1) 650 mg, Oral, EVERY 6 HOURS PRN, Pain Mild (1-3), Fever, For temp greater than 100.4 F (38 C), Starting on 01/20/22 at 2236, Maximum dose of acetaminophen is 4000 mg from all sources in 24 hours. Give on with a dose 15 minutes before amphotericin B * 1105 (Given - Provider: Dunia Hernandez RN - Comment: 39.1F) * 1738 (Given - Provider: Sophia Bui, RN) * 1846 (Given - Provider: Ambreen Ramírez, ANSELMO) * 1612 (Given - Provider: Elvin Ricketts RN) albuterol sulfate HFA 108 (90 Base) MCG/ACT inhaler 2 puff 2 puff, Inhalation, EVERY 4 HOURS PRN, Wheezing, Starting on 01/28/22 at 0830 aluminum & magnesium hydroxide-simethicone (MAALOX) 200-200-20 MG/5ML suspension 30 mL 30 mL, Oral, EVERY 6 HOURS PRN, Indigestion, Starting on 01/29/22 at 2034 * 2045 (Given - Provider: Ross Lan RN) [...] treatment and recheck blood glucose in 15 minutesx2. If using Glucostabilizer, dose as instructed per system. diphenhydrAMINE (BENADRYL) injection 25 mg 25 mg, IntraVENous, EVERY 6 HOURS PRN, Itching, Starting on Radha 01/25/22 at 2159, Give always a dose15 minutes before the amphotericin glucagon (rDNA) injection [...] glucose gel. Repeat blood glucose in 15 minutes.If blood glucose is less than 70 mg/dL, repeat treatment and recheck blood glucose in 15 minutes x2and notify provider. hydrOXYzine (ATARAX) tablet 25 mg 25 mg, Oral, 3 TIMES DAILY PRN, Itching, Starting on 01/20/22 at 2236 * 1936 (Given - Provider: Cameron Barrios, RN) ketorolac (TORADOL) injection 30 mg 30 mg, IntraVENous, EVERY 6 HOURS PRN, Pain Severe (7-10), Starting on 01/27/22 at 1104, For 5 days, Do not administer for more than 5 days. * 0602 (Given - Provider: Cameron Barrios, RN) * 1937 (Given - Provider: Cameron Barrios, ANSELMO) magnesium hydroxide (MILK OF MAGNESIA) 400 MG/5ML suspension 30 mL 30 mL, Oral, 2 TIMES DAILY PRN, Constipation, 1st dose now, Starting on 01/28/22 at 0830 * 0929 (Given - Provider: Dunia Hernandez RN) [...] Nausea, Vomiting, Starting on 01/20/22 at 2236, Administerif oral route cannot be used. ondansetron (ZOFRAN-ODT) [...] Lab Replacement Action 3.1 to 3.5 40 mEqORAL x 1 Under 3.1 Refer to IV [...] further dilute if GI adverse effects occur. * 0547 (See Alternative - Provider: Cameron Barrios RN) * 1303 (See Alternative - Provider: Sophia Bui RN) [...] patients with CrCl less than 30 mL/min. * 0547 (Given - Provider: Cameron Barrios RN) * 1303 (Given - Provider: Sophia Bui RN) potassium chloride 10 mEq/100 mL IVPB [...] patients with CrCl less than 30 mL/min. * 0517 (See Alternative - Provider: Cameron Barrios, RN) * 1303 (See Alternative - Provider: Sophia Bui RN) sodium chloride flush 0.9 % injection 5-40 mL 5-40 mL, IntraVENous, PRN, Line Care, Starting on Sat01/26/22 at 1820, For Line Patency: PeripheralIV = 5 mL; Midline or Central Line = 10 mL/lumen. If following IV push medication, administer flushat same rate as the IV push. Flush [...] Radha 01/25/22 at 1044, For Line Patency: PeripheralIV = 5 mL; Midline or Central Line = 10 mL/lumen. If following IV push medication, administer flushat same rate as the IV push. Flush [...] PRN, Sleep, Starting on 01/22/22 at 2100 * 9211 (Given - Provider: Cameron Barrios RN) Order Group 1: acetaminophen (TYLENOL) tablet 650 mgJump to med 650 mg, Oral, EVERY 6 HOURS PRN, Pain Mild (1-3), Fever, For temp greater than 100.4 F (38 C), Starting on 01/20/22 at 2236
Maximum dose of acetaminophen is 4000 mg from all sources in 24hours. Give on with a dose 15 minutes [...] unable to tolerate oral tablet. K Lab & amp;nbsp; & amp;nbsp;Replacement Action 3.1 to 3.5 &am p;nbsp; 40 mEq ORAL x 1 Under 3.1 Refer to IV replacement protocol Recheck K level in AM. Protocol not f or use in patients with CrCl less than 30 mL/min. Do not chew or crush. Dissolve flavored tablets completely in 3 to 4 ounces of cold water; unflavored tablets may be dissolved in 3to 4 ounces of cold juice. Patient to [...] patients with CrCl less than 30 mL/min.
Medication Order// tigecycline (TYGACIL) 100 mg in sodium chloride 0.9 % 100 mL IVPB 100 mg, IntraVENous, at 100 mL/hr, Administer over 60 Minutes, EVERY 12 HOURS, First dose on 05/06/22 at 0015 * 0103 (Not Given - Provider: Dolly Thomas RN - Reason: Other - Comment: Medication is not available in [facility]) * 1215 (Due) Medication Order/// iopamidol (ISOVUE-370) 76 % injection 75 mL (COMPLETED) 75 mL, IntraVENous, IMG ONCE PRN, 1 dose, Starting on 05/05/22 at 2047, Until 05/05/22 at 2055, Other * 2055 (Given - Provider: Vita Arriaga) Medication Order/// enoxaparin (LOVENOX) injection 40 mg 40 mg, SubCUTAneous, DAILY, First dose on 05/06/22 at 0900, Until Discontinued, Indication of Use: Prophylaxis-DVT/PE * 0752 (Not Given - Provider: Jason Sunshine RN - Reason: Patient/family refused) * 0813 (Not Given - Provider: Jason Sunshine RN - Reason: Patient/family refused) * 0811 (Given - Provider: Ana Tiwari RN) sodium chloride flush 0.9 % injection 5-40 mL 5-40 mL, IntraVENous, EVERY 12 HOURS SCHEDULED (2 times per day), First dose on 05/06/22 at 0900, Until Discontinued, For Line Patency: Peripheral IV = 5 mL; Midline or Central Line = 10 mL/lumen.If following IV push medication, administer flush at same rate as the IV push. Flush volume is determined by type of infusion therapy being given. For non-viscous solutions use: Peripheral IV = 5 mL Midline or Central Line = 10 mL/lumen For viscous solutions (i.e. blood components, parenteral nutrition, contrast media, or after obtaining blood sample) use: Peripheral IV = 10 mL Midline or CentralLine = 20 mL/lumen * 0943 (Not Given - Provider: Jason Sunshine RN - Reason: IV Fluid Infusing) * 215 (Given - Provider: Razia Rivera RN) * 0811 (Not Given - Provider: Jason Sunshine RN - Reason: IV Fluid Infusing) * 210 (Given - Provider: Teetee Rodrigez, RN) * 0811 (Given - Provider: Ana Tiwari, ANSELMO) * 2100 (Due) tigecycline (TYGACIL) 100 mg in sodium chloride 0.9 % 100 mL IVPB (COMPLETED) 100 mg, IntraVENous, at 100 mL/hr, Administer over 60 Minutes, ONCE, On 05/06/22 at 0700, For 1 dose * 0723 (New Bag - Provider: Christy Chew, RN) * 0823 (Stopped - Provider: Jason Sunshine, RN) tigecycline (TYGACIL) 50 mg in sodium chloride 0.9 % 100 mL IVPB (CANCELED) 50 mg, IntraVENous, at 100 mL/hr, Administer over 60 Minutes, EVERY 12 HOURS, First dose on 05/06/22 at 1900 * 193 (New Bag - Provider: Razia Rivera, RN) * 2051 (Stopped - Provider: Razia Rivera, RN) * 0614 (New Bag - Provider: Razia Rivera, ANSELMO) * 0714 (Stopped - Provider: Jason Sunshine, RN) Medication Order05/06//// 0.9 % sodium chloride infusion IntraVENous, at [...] Administer if oral route cannot be used. * 1605 (See Alternative - Provider: Jason Sunshine, RN) acetaminophen (TYLENOL) tablet 650 mg(Linked Group 1) 650 mg, Oral, EVERY 6 HOURS PRN, Starting on 05/06/22 at 0533, Until Discontinued, Pain Mild (1-3), Fever, For temp greater than 100.4 F (38 C), Maximum dose of acetaminophen is 4000 mg from all sources in 24 hours. * 1605 (Given - Provider: Jason Sunshine, RN) LORazepam (ATIVAN) tablet 1 mg 1 mg, Oral, EVERY 4 HOURS PRN, Starting on 05/06/22 at 1435, Until Discontinued, Anxiety, or withdrawl symptoms * 1744 (Given - Provider: Jason Sunshine, RN) * 0245 (Given - Provider: Razia Rivera, ANSELMO) * 1605 (Given - Provider: Jason Sunshine, ANSELMO) * 2103 (Given - Provider: Teetee Rodrigez, RN) * 0105 (Given - Provider: Teetee Rodrigez, RN) [...] Administer if oral route cannot be used. * 0245 (See Alternative - Provider: Razia Rivera RN) * 1605 (See Alternative - Provider: Jason Sunshine, ANSELMO) ondansetron (ZOFRAN-ODT) disintegrating tablet 4 mg(Linked Group 2) 4 mg, Oral, EVERY 8 HOURS PRN, Starting on 05/06/22 at 0533, Until Discontinued, Nausea, Vomiting * 0245 (Given - Provider: Razia Rivera, RN) * 1605 (Given - Provider: Jason Sunshine, ANSELMO) polyethylene [...] Refer to IV replacement orders Recheck K levelin AM. Not for use in patients with CrCl less than 30 mL/min. potassium chloride 10 mEq/100 mL IVPB (Peripheral Line)(Linked Group 3) 10 mEq, IntraVENous, PRN, Starting on 05/06/22 at 0533, Until Discontinued, at 100 mL/hr, Potassium Replacement, K Lab Replacement Action 2.7-3.0 10 mEq IVPB x 6 doses (60 mEq Total) < 2.7 CALLPHYSICIAN and 10 mEq IVPB x 6 doses [...] Only to be given as IM injection. * 2211 (Given - Provider: Teetee Rodrigez, ANSELMO) sodium chloride flush 0.9 % injection 10 mL 10 mL, IntraVENous, PRN, Starting on 05/06/22 at 0533, Until Discontinued, Line Care, After every IV line use * 0752 (Given - Provider: Jason Sunshine, ANSELMO) Order Group 1: acetaminophen (TYLENOL) tablet 650 [...] unable to tolerate oral tablet. K Lab & amp;nbsp; Replacement Action 3.1 to 3.5 &am p;nbsp; 40 mEq ORAL x 1 Under 3.1 &nbs p; Refer to IV replacement protocol Recheck K [...] patients with CrCl less than 30 mL/min.
Medication Order diphenhydrAMINE (BENADRYL) tablet 12.5 mg 12.5 mg, Oral, 2 times daily, First dose on Sat06/18/22 at 1215, Until Discontinued, Pls give 15 minbefore each dose of vanco * 0435 (Given - Provider: Jennifer Robins RN) * 1701 (Given - Provider: Audra Astudillo RN) * 0359 (Given - Provider: Raymond Doshi RN) * 1648 (Given - Provider: Audra Astudillo RN) * 0451 (Given - Provider: Abi Ha RN) * 1645 (Due - Provider: Fahad Frances [facility]) enoxaparin (LOVENOX) injection 40 mg 40 mg, SubCUTAneous, DAILY, First dose on Sat06/16/22 at 0900, Until Discontinued, Indication of Use: Prophylaxis-DVT/PE * 1015 (Given - Provider: Audra Astudillo RN - Comment: patient request) * 0844 (Given - Provider: Audra Astudillo RN) * 0956 (Given - Provider: Clement Granger, ANSELMO) fluconazole (DIFLUCAN) tablet 400 mg 400 mg, Oral, DAILY, First dose on Sat06/18/22 at 1300, Until Discontinued, Antimicrobial Indications: Endocarditis/Endovascular * 1015 (Given - Provider: Audra Astudillo RN - Comment: patient request) * 0843 (Given - Provider: Audra Astudillo RN) * 0913 (Given - Provider: Clement Granger, ANSELMO) sodium chloride flush 0.9 % injection 5-40 mL 5-40 mL, IntraVENous, EVERY 12 HOURS SCHEDULED (2 times per day), First dose on Sat06/15/22 at 2100,Until Discontinued, For Line Patency: Peripheral IV = [...] Midline or Central Line = 20 mL/lumen * 1015 (Given - Provider: Audra Astudillo RN) * 2026 (Not Given - Provider: Raymond Doshi RN - Reason: Other) * 0843 (Given - Provider: Audra Astudillo RN) * 2016 (Given - Provider: Abi Ha RN) * 0914 (Not Given - Provider: Clement Granger, ANSELMO - Reason: IV Fluid Infusing) * 2100 (Due) vancomycin (VANCOCIN) 1250 mg in sodium chloride 0.9% 250 mL IVPB 1,250 mg (15.1 mg/kg), IntraVENous, at 166.7 mL/hr, Administer over 90 Minutes, EVERY 12 HOURS, First dose on Sat06/18/22 at 1230 * 0453 (New Bag - Provider: Jennifer Robins, ANSELMO) * 0644 (Stopped - Provider: Jennifer Robins RN) * 1756 (New Bag - Provider: Audra Astudillo RN) * 1934 (Stopped - Provider: Raymond Doshi, RN) * 0503 (New Bag - Provider: Raymond Doshi, ANSELMO) * 0642 (Stopped - Provider: Raymond Doshi, RN) * 1730 (New Bag - Provider: Audra Astudillo RN) * 1900 (Stopped - Provider: Abi Ha, RN) * 1941 (Stopped - Provider: Abi Ha, RN) * 0536 (New Bag - Provider: Abi Ha, RN) * 0911 (Stopped - Provider: Clement Granger, ANSELMO) * 1700 (Due - Provider: Tonio Pendleton [facility]) vancomycin (VANCOCIN) intermittent dosing (placeholder) Medication Order//09/2022 0.9 % sodium chloride infusion IntraVENous, at 5-250 mL/hr, PRN, if patient receiving piggyback infusions and maintenance fluids are not ordered OR KVO fluids to protect IV site / prevent frequent line interruptions/ long duration, Starting on Sat06/15/22 at 1714, For piggyback infusion, administer at same rate as piggyback for atotal of 25 mL. Enter 25 mL into [...] administer at same rate as piggyback for atotal of 25 mL. Enter 25 mL into [...] Administer if oral route cannot be used. * 0034 (See Alternative - Provider: Abi Ha RN) acetaminophen (TYLENOL) tablet 650 mg(Linked Group 1) 650 mg, Oral, EVERY 6 HOURS PRN, Starting on 06/16/22 at 0239, Until Discontinued, Pain Mild (1-3), Fever, For temp greater than 100.4 F (38 C), Maximum dose of acetaminophen is 4000 mg from all sources in 24 hours. * 0034 (Given - Provider: Abi Ha RN) albuterol (PROVENTIL) nebulizer solution [...] as the IV push. Flush volume is determinedby type of infusion therapy being given. For [...] as the IV push. Flush volume is determinedby type of infusion therapy being given. For non-viscous solutions use: Peripheral IV = 5 mL Midline or Central Line = 10 mL/lumen For viscous solutions (i.e. blood components, parenteral nutrition, contrast media, or after obtaining blood sample) use: Peripheral IV = 10 mL Midline or Central Line = 20 mL/lumen Order Group 1: acetaminophen (TYLENOL) tablet 650 [...]
Administer if oral route cannot be used.
Medication Order// dalbavancin (DALVANCE) 1,000 mg in dextrose 5 % 500 mL IVPB 1,000 mg, IntraVENous, at 1,000 mL/hr, Administer over 30 Minutes, ONCE, On Sat06/29/22 at 1400, For 1 dose, Dalbavancin (DALVANCE) not compatible with NS or any saline-based solution. Final solutionconcentration range from 1 mg/mL to 5 mg/mL. [...] with NS or any saline-based solution. Final solutionconcentration range from 1 mg/mL to 5 mg/mL. Infuse over 30 minutes. If a common IV line is being used to administer other drugs in addition to dalbavancin, the line should be flushed before and after each infusion with D5W. * 1505 (New Bag - Provider: ELDA MADDOX) * 1535 (Due: Stopped - Provider: ELDA MADDOX) Medication Order// dalbavancin (DALVANCE) 1,000 mg in dextrose 5 % 500 mL IVPB (COMPLETED) 1,000 mg, IntraVENous, at 1,000 mL/hr, Administer over 30 Minutes, ONCE, On Sat07/09/22 at 1400, For 1 dose, Dalbavancin (DALVANCE) not compatible with NS or any saline-based solution. Final solutionconcentration range from 1 mg/mL to 5 mg/mL. Infuse over 30 minutes. If a common IV line is being used to administer other drugs in addition to dalbavancin, the line should be flushed before and after each infusion with D5W. * 1404 (New Bag - Provider: Sunita Pringle RN) * 1434 (Stopped - Provider: Sunita Pringle RN) Ordered Prescriptions (unrec ognized section and content) PrescriptionSigDispensedRefillsStart DateEnd Date dalbavancin (DALVANCE) 500 MG SOLR injection Infuse 1,500 mg intravenously every 7 days for 2 doses 2 each //rescriptionSigDispensedRefillsStart DateEnd triamterene-hydroCHLOROthiazide (MAXZIDE-25) 37.5-25 MG per tablet Take 1 tablet by mouth daily 30 tablet /rescriptionSigDispensedRefillsStart DateEnd fluconazole (DIFLUCAN) 100 MG tablet Take 4 tablets by mouth daily Till 03/10/22 Get lFT 2 x per week You ll need repeat echo before the cessation of this medication 156 tablet / guaiFENesin (MUCINEX) 600 MG extended release tablet Take 1 tablet by mouth 2 times daily for 14 days 28 tablet /03/2022 fluticasone (FLONASE) 50 MCG/ACT nasal spray 1 spray by Each Nostril route daily 16 g levoFLOXacin (LEVAQUIN) 500 MG tablet Take 1 tablet by mouth daily 39 tablet / fluconazole (DIFLUCAN) 100 MG tablet Take 4 tablets by mouth daily Till 03/10/22 Get lFT 2 x per week You ll need repeat echo before the cessation of this medication 156 tablet traMADol (ULTRAM) 50 MG tablet Indications:Post-operative painTake 1 tablet by mouth every 6 hours as needed for Pain for up to 5 days. Intended supply: 5 days. Take lowest dose possible to manage pain 20 tablet rescriptionSigDispensedRefillsStart DateEnd fluconazole (DIFLUCAN) 100 MG tablet Take 4 tablets by mouth in the morning. Pls make sure you get the weekly blood for Liver function tests while on this medication. 168 tablet / dalbavancin (DALVANCE) 500 MG SOLR injection Infuse 1,000 mg intravenously every 7 days No iv to be left in arm pls - 2 each rescriptionSigDispensedRefillsStart DateEnd Date ibuprofen (ADVIL;MOTRIN) 800 MG tablet Take 1 tablet by mouth every 8 hours as needed for Pain or Fever 15 tablet benzonatate (TESSALON) 100 MG capsule Take 1-2 capsules by mouth 3 times daily as needed for Cough 30 capsule Care Teams (unrecognized sec tion and content) Team Status: Active Member Role Status Quirino Mccormack MD Primary Care Provider Active Team Status: Inactive Member Role Status Quirino Mccormack MD Primary Care Provider Active Start: July 15, 2025 End: July 15, 2025Flako Hamlin ProviderActiveStart: July 15, 2025 End: July 15, 2025 Team Status: Inactive Member Role Status Quirino Mccormack MD Primary Care Provider Active Start: July 22, 2025 End: July 22, 2025Temporary FibroscanAttending ProviderActiveStart: July 22, 2025 End: July 22, 2025Anish Novak , APRNReferring ProviderActiveStart: July 22, 2025 End: July 22, 2025 Team Status: Active Member Role Status Quirino Mccormack MD Primary Care Provider Active Start: July 22, 2025 Temporary FibroscanOther ProviderActiveStart: July 22, 2025 Anish Novak APRNReferring ProviderActiveStart: July 22, 2025 Bean [place] MDAttending ProviderActiveStart: July 22, 2025 Team Status: Inactive Member Role Status Quirino Mccormack MD Primary Care Provider Active Start: August 26, 2025 End: August 26, 2025Flako Hamlin ProviderActiveStart: August 26, 2025 End: August 26, 2025 Goals (unrecognized section and content) Goals may be documented in a n alternate sectionGoals may be documented in an alternate section FOR RECORDS PERTAINING TO PATIENTS [...] BE BASED ON THE PRIMARY CLINICAL RECORDS. [facility]. provides no warranty or guarantee of the accuracy or completeness of information in this document.
[2025-09-10 15:34] LABS: Alanine Aminotransferase 114 U/L (16-63); Albumin Globulin Ratio 1.0; Albumin Level 3.6 g/dL (3.4-5.0); Alkaline Phosphatase 93 U/L (46-116); Anion Gap 7.8; Aspartate Amino Transferase 97 U/L (15-37); Blood Urea Nitrogen 14.0 mg/dL (7.0-18.0); Calcium 9.1 mg/dL (8.5-10.1); Carbon Dioxide 28.3 mmol/L (21.0-32.0); Chloride 104 mmol/L (98-107); Estimated GFR (African America >60 (>=60 mL/min/1.73m^2); Estimated GFR (Non-African Ame >60 (>=60 mL/min/1.73m^2); Globulin 3.7 g/dL; Glucose 95 mg/dL (74-106); Potassium 4.1 mmol/L (3.5-5.1); Sodium 136 mmol/L (136-145); Total Protein 7.3 g/dL (6.4-8.2)
== END 2025-09-10 15:00 | disposition home or self-care (01) ==
LOC: LAB 15:01
PROVIDERS: PCP Family Medicine; Visit Provider Registered Nurse
DX: Z86.19 Personal history of other infectious and parasitic diseases (principal)
CPT/HCPCS: 36415; 80053